=== PATIENT | male | born 1960 | race Caucasian/White ===

== ENCOUNTER 2019-07-08 19:07 | Outpatient (REF) | payer OTHER, SELFPAY ==
[2019-07-08 19:30] LABS: ALT 41 U/L (16-63); AST 26 U/L (15-37); Albumin 4.1 g/dL (3.4-5.0); Alkaline Phosphatase 87 U/L (46-116); Anion Gap 11.1 mmol/L (3-11); BUN 13 mg/dL (7-18); Bilirubin, Total 0.7 mg/dL (0.2-1.0); CO2 22.9 mmol/L (21.0-32.0); Calcium 8.8 mg/dL (8.5-10.1); Calculated LDL 119 mg/dL; Chloride 108 mmol/L (98-107); Cholesterol 193 mg/dL (<200); Glucose 85 mg/dL (74-106); HDL Cholesterol 38 mg/dL (40-60); Potassium 3.7 mmol/L (3.5-5.1); Sodium 142 mmol/L (136-145); Total Protein 7.6 g/dL (6.4-8.2); Triglyceride 180 mg/dL (<150)
== END 2019-07-08 19:27 ==
LOC: NCHCN 19:07
PROVIDERS: PCP Physician Assistant Medical; Visit Provider Physician Assistant Medical
DX: Z00.00 Encounter for general adult medical examination without abnormal findings (principal); Z13.220 Encounter for screening for lipoid disorders; Z13.228 Encounter for screening for other metabolic disorders
CPT/HCPCS: 80053; 80061

== ENCOUNTER 2020-08-29 19:32 | Outpatient (REF) | payer OTHER, SELFPAY ==
[2020-08-29 20:54] LABS: ALT 44 U/L (16-63); AST 29 U/L (15-37); Alkaline Phosphatase 80 U/L (46-116); Anion Gap 9.6 mmol/L (3-11); BUN 18 mg/dL (7-18); Bilirubin, Total 0.4 mg/dL (0.2-1.0); CO2 26.4 mmol/L (21.0-32.0); CREATININE 1.15 mg/dL (0.70-1.30); Calcium 9.2 mg/dL (8.5-10.1); Calculated LDL 129 mg/dL (<100); Chloride 105 mmol/L (98-107); Cholesterol 205 mg/dL (<200); Glucose 88 mg/dL (74-106); HDL Cholesterol 41 mg/dL (40-60); Potassium 4.4 mmol/L (3.5-5.1); Sodium 141 mmol/L (136-145); Total Protein 7.7 g/dL (6.4-8.2); Triglyceride 177 mg/dL (<150)
== END 2020-08-29 19:52 ==
LOC: NCHCN 19:32
PROVIDERS: PCP Physician Assistant Medical; Visit Provider Physician Assistant Medical
DX: Z00.00 Encounter for general adult medical examination without abnormal findings (principal); Z13.220 Encounter for screening for lipoid disorders; Z13.228 Encounter for screening for other metabolic disorders
CPT/HCPCS: 80053; 80061

== ENCOUNTER 2021-04-29 17:56 | Observation (INO) | payer OTHER, SELFPAY ==
[2021-04-29] VITALS (27 sets, daily range): BP systolic 126–145; BP diastolic 68–87; PULSE 92–106; RESP 16–33; TEMP 36.8–37.9; O2SAT 92–97
--- NOTE | 2021-04-29 18:00 | RT.EKG_ITS ---
APPROVED REPORT Exam: Resting ECG Reason for Exam: sob Patient Location: E HR:101 bpm ECG Measurements Heart Rate 101 AXIS AZ 137 P 69 QRSd 92 QRS 29 QT 338 T 10 QTc 438 Conclusion Sinus tachycardia...rate> 99
--- NOTE | 2021-04-29 18:19 | ED.GENADUL_ITS ---
Discharge Plan Disposition Patient Disposition: [facility] INPATIENT Condition: Improving Discharge Details Chief Complaint: GenMedical Clinical Impression: Anemia, Leukocytosis Primary Care Provider: Beatriz Maurice ED Provider: Mikael Scott Home Meds and New Rx's Prescriptions: No Action flecainide 50 MG tablet 50 mg PO BID RF: 0 bisoprolol fumarate 5 MG tablet 2.5 mg PO DAILY Qty: 30 RF: 0 aspirin [Aspir-81] 81 mg Tablet,Delayed Release (Dr/Ec) 81 mg PO DAILY RF: 0 tamsulosin 0.4 mg capsule 0.4 mg PO HS RF: 0 pantoprazole 40 mg tablet,delayed release (DR/EC) 40 mg PO DAILY RF: 0 Medical Decision Making 60-year-old male referred by primary care, [facility]. He has had generalized weakness for 2 to 3 weeks with some mild exertional shortness of breath. He had outpatient blood work today that revealed elevated white blood cell count of 48. He also had an outpatient chest x-ray that was unremarkable. The patient's CBC reveals a differential including elevated absolute monocytes and absolute lymphocytes. He has a relative anemia versus his baseline. I reviewed the patient's presentation with on-call hematology at [facility], Dr Rodrigez. Laboratory had reported to me verbally they were concerned for blasts in the patient's blood smear and for which a pathology consult is pending. [facility] recommended admission for every 6 hours CBCs, close observation, and review of pathology consult in the morning. If the patient has increased dyspnea, precipitous changes to his CBC, or blasts present that would indicate a blast crisis, the hematology service asked to be contacted. He will likely have an outpatient referral for bone marrow biopsy. At the request I have added LDH, haptoglobin, reticulocyte count and lactic acid. Case discussed with Dr. Betancourt. [facility] General Mode of arrival: ambulatory . Date/Time Provider Initiated Documentation: 04/29/21 18:01 . Limitations to Documentation: no limitations . Information obtained by: patient . History of Present Illness 60 year old M presents to the emergency department with the chief complaint of Generalized weakness, elevated leukocytes on blood count today, described as moderate, Quality is described as constant, Patient reports no radiation. and it has been constant. No relieving factors improve symptom(s), Movement worsens symptoms . Patient notes weakness; denies chest pain and syncope. Patient did receive the following treatments prior to arrival, none Related Data Home Medications Medication Instructions Recorded Confirmed bisoprolol fumarate 2.5 mg PO DAILY #30 tab 10/24/16 04/29/21 flecainide 50 mg PO BID tab-cap 12/24/16 04/29/21 aspirin [Aspir-81] 81 mg PO DAILY 04/29/21 04/29/21 pantoprazole 40 mg PO DAILY 04/29/21 04/29/21 tamsulosin 0.4 mg PO HS 04/29/21 04/29/21 Previous Rx's Medication Instructions Recorded bisoprolol fumarate 2.5 mg PO DAILY #30 tab 10/24/16 Allergies Allergy/AdvReac Type Severity Reaction Status Date / Time metoprolol AdvReac skips in Unverified 04/29/21 18:23 heart rate all sugar substitutes AdvReac Uncoded 04/29/21 18:22 Review of Systems Narrative: Weakness with exertion, no palpitations or syncope. Denies significant chest pain. Has been short of breath with exertion. No recent illness. No weight loss or night sweats. No bleeding or bruising. 8 systems reviewed and otherwise negative. [facility] Medical History GERD (gastroesophageal reflux disease) History of colon polyps Paroxysmal atrial fibrillation Surgical History (Updated 06/02/18 @ 14:33 by [employer]) Colonoscopy - IV Sedation Repair, Tendon or Muscle achilles Tonsillectomy and adenoidectomy Social History Smoking/Tobacco Use Status: Never Smoking risk assessment performed?: Yes Alcohol Intake: current Alcohol Intake frequency: holidays/special occasions only Drug use: Never Do you feel safe at home: Yes Do you feel safe in your relationship?: Yes Exam Narrative Exam Narrative: GEN: awake, alert, oriented 3. Pleasant, well groomed, interactive. HEAD: Normocephalic, atraumatic ENT: Mucous membranes moist, oropharynx unremarkable, External ear exam unremarkable EYES: PERRL, EOMI NECK: Full ROM, no ELVIE, no menigismus CHEST/RESP: Nontender, clear to auscultation bilateral, no wheeze/rhonchi/rales CARDIOVASCULAR: Regular and borderline tachycardia, no murmur, rub sanya. 2+ Rad pulse bilateral ABDOMEN: Soft, nontender, no mass. +Bowel sounds EXT: Full ROM, no edema, no rash Neuro: Grossly normal neurologic exam, conversant, interactive. Psych: Speech fluent, thoughts congruent, affect normal
[2021-04-29] MEDS: Normal Saline 1,000 ML 1000 ML IV (19:09)
[2021-04-29 19:17] LABS: Absolute Lymphocyte Count 10.54 10^3/uL (1.2-3.4); Basophils % 0.1; Eosinophils % 0.1; HCT 24.9 % (40.0-50.0); HGB 8.3 g/dL (13.5-17.5); Immature Grans % 3.2; Lymphocytes % 22.4; MCH 31.8 pg (27.0-33.0); MCHC 33.3 % (32.0-36.0); MCV 95.4 fL (80-95); MPV 12.6 fL (8.0-11.0); Nucleated RBC 0 %; RBC 2.61 10^6/uL (4.36-5.78); RDW 15.1 % (11.8-14.1); RDW-SD 52.5 fL
[2021-04-29 19:27] LABS: Absolute Basophil Count 0.05 10^3/uL (0.0-0.2); Absolute Eosinophil Count 0.05 10^3/uL (0.0-0.7); Absolute Monocyte Count 32.94 10^3/uL (0.1-0.8); Absolute Neutrophil Count 1.98 10^3/uL (1.2-6.7); WBC 47.05 10^3/uL (4.4-10.8)
[2021-04-29 19:28] LABS: Platelet Count 23 10^3/uL (130-400)
[2021-04-29 19:29] LABS: Neutrophils % 4.2
[2021-04-29 19:35] LABS: ALT 20 U/L (16-63); AST 25 U/L (15-37); Albumin 2.9 g/dL (3.4-5.0); Alkaline Phosphatase 61 U/L (46-116); Anion Gap 10.2 mmol/L (3-11); BUN 14 mg/dL (7-18); Bilirubin, Total 0.4 mg/dL (0.2-1.0); CO2 25.8 mmol/L (21.0-32.0); CREATININE 1.5 mg/dL (0.70-1.30); Calcium 8.3 mg/dL (8.5-10.1); Chloride 104 mmol/L (98-107); Estimated GFR 47.74 (mL/min/1.73m2); Glucose 118 mg/dL (74-106); Potassium 3.1 mmol/L (3.5-5.1); Sodium 140 mmol/L (136-145); Total Protein 7.8 g/dL (6.4-8.2)
[2021-04-29 19:47] LABS: INR 1.3 (0.9-1.1); Prothrombin Time 12.6 sec (9.3-11.0)
--- NOTE | 2021-04-29 20:17 | W.PM.HP.N ---
Date of service: 04/29/21 Time of Service: 20:17 Assessment and Plan Assessment and plan (1) Leukocytosis: Status: Acute Assessment and plan: Leukocytosis with anemia and thrombocytopenia. 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 Per recommendations of Hematology will monitor CBC overnight, then arrange for biopsy. History of Present Illness History of Present Illness Chief Complaint: SOB Narrative: 60 male here with several weeks of generalized weakness and PICHARDO. Seen PCP, labs show white count 48K, sent to ER for eval. In ER findings of note for white count 47K, predominantly mononclear (verbal from ER is that there may have been blasts but this is unconfirmed and sample has been sent out to Path); Hct 24 and platelets 23. Case reviewed with [facility] [place] [place] hematology who advises q6H Hct in event of developing blast crisis. Otherwise will plan on referral for bone marrow biopsy and definitive treatment. At present patient states he is comfi=ortable at rest, no pain, no SOB. No unusual bleeding. Review of Systems All systems reviewed & are unremarkable except as noted in HPI and below PFSH Medical History GERD (gastroesophageal reflux disease) History of colon polyps Paroxysmal atrial fibrillation Surgical History Colonoscopy - IV Sedation Repair, Tendon or Muscle achilles Tonsillectomy and adenoidectomy Social History Smoking/Tobacco Use Status: Never Smoking risk assessment performed?: Yes Alcohol Intake: current Alcohol Intake frequency: holidays/special occasions only Drug use: Never Do you feel safe at home: Yes Do you feel safe in your relationship?: Yes Meds Allergies and Home Medications Allergies Allergy/AdvReac Type Severity Reaction Status Date / Time metoprolol AdvReac skips in Unverified 04/29/21 18:23 heart rate all sugar substitutes AdvReac Uncoded 04/29/21 18:22 Home Medications Medication Instructions Recorded Confirmed Type bisoprolol fumarate 2.5 mg PO DAILY #30 tab 10/24/16 04/29/21 Rx flecainide 50 mg PO BID tab-cap 12/24/16 04/29/21 History aspirin [Aspir-81] 81 mg PO DAILY 04/29/21 04/29/21 History pantoprazole 40 mg PO DAILY 04/29/21 04/29/21 History tamsulosin 0.4 mg PO HS 04/29/21 04/29/21 History Exam Narrative Exam Narrative: 140/84, 103, 36.8, 19, 95% RA. HEENT atraumatic; neck supple; lungs clear; heart RRR; abdomen soft and NT w/o HSM; extremities w/o edema; neuro Ox3, lucid, moves all 4s. Lymphatic: 2 cm left anterior cervical node, otherwise negative Results Labs Result diagrams: 04/29/21 18:55 04/29/21 18:55 Labs: Laboratory Results - last 24 hr 04/29/21 04/29/21 04/29/21 18:36 18:55 18:55 WBC 47.05 H* RBC 2.61 L Hgb 8.3 L Hct 24.9 L MCV 95.4 H MCH 31.8 MCHC 33.3 RDW 15.1 H Plt Count 23 L* MPV 12.6 H Immature Gran % 3.2 Neutrophils % 4.2 Lymphocytes % 22.4 Monocytes % 70.0 Eosinophils % 0.1 Basophils % 0.1 Nucleated RBC % 0 Absolute Neutrophils 1.98 Absolute Lymphocytes 10.54 H Absolute Monocytes 32.94 H Absolute Eosinophils 0.05 Absolute Basophils 0.05 PT INR APTT Sodium 140 Potassium 3.1 L Chloride 104 Carbon Dioxide 25.8 Anion Gap 10.2 BUN 14 Creatinine 1.5 H Estimated GFR/1.73 m2 47.74 Glucose 118 H Calcium 8.3 L Total Bilirubin 0.4 AST 25 ALT 20 Alkaline Phosphatase 61 Total Protein 7.8 Albumin 2.9 L Pathology Consult Spec Cancelled 04/29/21 18:55 WBC RBC Hgb Hct MCV MCH MCHC RDW Plt Count MPV Immature Gran % Neutrophils % Lymphocytes % Monocytes % Eosinophils % Basophils % Nucleated RBC % Absolute Neutrophils Absolute Lymphocytes Absolute Monocytes Absolute Eosinophils Absolute Basophils PT 12.6 H INR 1.3 H APTT 25.0 Sodium Potassium Chloride Carbon Dioxide Anion Gap BUN Creatinine Estimated GFR/1.73 m2 Glucose Calcium Total Bilirubin AST ALT Alkaline Phosphatase Total Protein Albumin Pathology Consult Spec Last Vital Signs Temp 36.8 C 04/29/21 18:16 Pulse 103 H 04/29/21 18:16 Resp 19 04/29/21 18:16 BP 140/84 04/29/21 18:16 Pulse Ox 95 04/29/21 18:16
[2021-04-29 20:39] LABS: Source Nasal/Nares
[2021-04-29 20:48] LABS: Lactate 0.9 mmol/L (0.6-1.4)
[2021-04-29 20:55] LABS: Reticulocyte 0.4 % (0.5-2.4)
[2021-04-29 21:16] LABS: LDH 655 U/L (85-227)
[2021-04-29] MEDS: Normal Saline Flush 10 ML SYR IVP (22:02)
[2021-04-29] MEDS: Acetaminophen 325 MG TAB 650 MG PO (22:02)
[2021-04-29] MEDS: Tamsulosin 0.4 MG CAPCR PO (22:02)
[2021-04-29 23:01] LABS: COVID-19 PCR Negative (Negative)
[2021-04-29 23:33] LABS: HCT 23.8 % (40.0-50.0); HGB 7.8 g/dL (13.5-17.5); MCH 31.7 pg (27.0-33.0); MCHC 32.8 % (32.0-36.0); MCV 96.7 fL (80-95); MPV 11.5 fL (8.0-11.0); Nucleated RBC 0 %; RBC 2.46 10^6/uL (4.36-5.78); RDW 15.2 % (11.8-14.1); RDW-SD 53.3 fL
[2021-04-29 23:37] LABS: WBC 46.01 10^3/uL (4.4-10.8)
[2021-04-29 23:56] LABS: Platelet Count 21 10^3/uL (130-400)
[2021-04-30] VITALS: BP 107/66; PULSE 92; RESP 20; TEMP 36.2; O2SAT 94
[2021-04-30] LABS: Absolute Eosinophil Count 0.46 10^3/uL (0.0-0.7); Absolute Lymphocyte Count 9.66 10^3/uL (1.2-3.4); Absolute Monocyte Count 31.29 10^3/uL (0.1-0.8)
[2021-04-30 00:01] LABS: Diff Comment Manual Differential; Hypochromasia 1+; Metamyelocytes % 3; Myelocytes % 2
[2021-04-30 06:07] VITALS: TEMP 36.4
[2021-04-30 07:15] LABS: Abs Immature Grans 1.17 10^3/uL (0.0-0.06); HCT 24.4 % (40.0-50.0); HGB 8.1 g/dL (13.5-17.5); MCHC 33.2 % (32.0-36.0); MCV 96.4 fL (80-95); Nucleated RBC 0 %; RBC 2.53 10^6/uL (4.36-5.78); RDW 15.2 % (11.8-14.1); RDW-SD 52.6 fL
[2021-04-30 07:30] VITALS: BP 122/80; PULSE 89; RESP 16; TEMP 36.6; O2SAT 95
[2021-04-30] MEDS: Pantoprazole 40 MG TABCR PO (08:15)
[2021-04-30] MEDS: Bisoprolol 5 MG TAB 2.5 MG PO (08:15)
[2021-04-30 08:21] LABS: WBC 40.17 10^3/uL (4.4-10.8)
[2021-04-30 08:22] LABS: Platelet Count 20 10^3/uL (130-400)
[2021-04-30 08:23] LABS: Absolute Lymphocyte Count 12.85 10^3/uL (1.2-3.4); Absolute Monocyte Count 13.66 10^3/uL (0.1-0.8); Absolute Neutrophil Count 3.21 10^3/uL (1.2-6.7); Bands % 0
[2021-04-30 08:24] LABS: Diff Comment Manual Differential; Other Cells % 26; RBC Morphology Normal
--- NOTE | 2021-04-30 12:14 | DSE_ITS ---
Date of service: 04/30/21 Time of Service: 12:14 DS: Diagnosis Discharge Diagnosis (1) Leukocytosis: Status: Acute Discharge Plan Disposition Patient Disposition: HOME Condition: Improving Discharge Details Reason For Visit: Presumed Leukemia Admit Date/Time: 04/29/21 20:27 Admit Provider: Graham Betancourt Attending Provider: Graham Betancourt Primary Care Provider: Beatriz Maurice Hospital Course Hospital Course: This is a 60 male who presented to the ED with several weeks of generalized weakness and dyspnea on exertion. He was evaluated by his PCP and labs show white count 48K, sent to ER for evaluation. In ER findings of note for white count 47K, predominantly mononclear (verbal from ER is that there may have been blasts but this is unconfirmed and sample has been sent out to Path); Hct 24 and platelets 23. Case reviewed with [facility] [place] who advises q6H Hct in event of developing blast crisis. Otherwise will plan on referral for bone marrow biopsy and definitive treatment. a Flow cytometry has been sent and is pending. His H&H remained stable, white count down to 40 and platelets stable at 20 with no evidence of bleeding or bruising. He has been hemodynamically stable with no new c/o. He will be discharged home to f/u with [facility] [place] further [place] and management. discharge discussed with DR Parra. Home Meds and New Rx's Prescriptions: Continued flecainide 50 MG tablet 50 mg PO BID RF: 0 bisoprolol fumarate 5 MG tablet 2.5 mg PO DAILY Qty: 30 RF: 0 tamsulosin 0.4 mg capsule 0.4 mg PO HS RF: 0 pantoprazole 40 mg tablet,delayed release (DR/EC) 40 mg PO DAILY RF: 0 Discontinued aspirin [Aspir-81] 81 mg Tablet,Delayed Release (Dr/Ec) 81 mg PO DAILY RF: 0 Discharge Instructions Instructions: Leukocytosis (DC), Thrombocytopenia (DC) Additional Instructions: you will need further outpatient work up and are being referred to [facility] [place]ology. you are at increased risk for bleeding so report symptoms of lightheadedness, nicholas bleeding, or concerns immediately. avoid activities that put you at risk for trauma. Stand Alone Forms: Nursing Discharge Form Referrals: Beatriz Maurice PA [Primary Care Provider] - 05/14/21 9:15 am ASHWINI MARTEL [ NON-[facility] STAFF PHYSICIAN] - (office will call you with appointment time and date) Activity:: Activity as Tolerated Equipment/Supplies:: No Equipment Needed Diet:: As Tolerated Discharge Orders Discharge Orders: Discharge Order (Routine); Ordered 04/30/21 Ordered By: Emilia Winters Discharge Data Discharge Date/Time-TO BE ENTERED AT DEPARTURE: 04/30/21 13:45 DS: Summary Time Spent with Patient providing and/or coordinating discharge services: Less than 30 minutes Status at Discharge Functional status at discharge: independent ambulation Overall status at discharge: patient is not back to baseline Mental Status: mental status grossly normal Speech and Movement: speech and movement normal Mood: congruent mood Affect: normal affect Exam Narrative Exam Narrative: GEN: awake, alert, oriented 3. not acute distress HEAD: Normocephalic, atraumatic ENT: Mucous membranes moist, oropharynx unremarkable, EYES: PERRL, EOMI NECK: Full ROM, no menigismus CHEST/RESP: respirations even and unlabored, clear to auscultation bilateral, CARDIOVASCULAR: Regular rate and rhythm, no murmur, no edema ABDOMEN: Soft. +Bowel sounds EXT: Full ROM, no edema, no rash, no bruising Neuro: awake and oriented, no focal deficit. Psych: normal mood and affectl Psych Mental Status: mental status grossly normal Speech and Movement: speech and movement normal Mood: congruent mood Affect: normal affect DS: Data Vitals/I&O Vitals and I&O: Vital Signs Temperature 36.6 C 04/30/21 07:30 Temperature Source Tympanic 04/30/21 07:30 Pulse 89 04/30/21 07:30 Pulse Rhythm Regular 04/30/21 08:16 Pulse 92 H 04/29/21 20:50 Respiratory Rate 16 04/30/21 07:30 Respiratory Effort 04/30/21 08:16 Respiratory Depth Normal 04/30/21 08:16 Respiratory Pattern Normal 04/30/21 08:16 Blood Pressure 122/80 04/30/21 07:30 Blood Pressure Mean 96 04/29/21 20:46 Blood Pressure Position Supine 04/29/21 18:16 Pulse Oximetry 95 04/30/21 07:30 Oxygen Delivery Method Room Air 04/30/21 07:30 Oxygen Flow Rate 0 04/30/21 07:30 Pain Level 0 04/30/21 07:30 Intake & Output 04/29/21 04/30/21 04/30/21 23:59 11:59 23:59 Intake Total 1010 / 1010 600 / 600 Balance 1010 / 1010 600 / 600 Weight 117.934 kg Intake: IV 1010 / 1010 Oral 600 / 600 Other: Comment voiding in toielt independently Voiding Methods Toilet Data Completed and Pending Labs on day of discharge: Labs from last 24 hours 04/30/21 04/29/21 04/29/21 07:00 23:30 23:00 WBC 40.17 H* Cancelled 46.01 H* RBC 2.53 L Cancelled 2.46 L Hgb 8.1 L Cancelled 7.8 L Hct 24.4 L Cancelled 23.8 L MCV 96.4 H Cancelled 96.7 H MCH 32.0 Cancelled 31.7 MCHC 33.2 Cancelled 32.8 RDW 15.2 H Cancelled 15.2 H Plt Count 20 L* Cancelled 21 L* MPV 12.0 H Cancelled 11.5 H Reticulocyte % (Auto) Immature Gran % 0.0 Cancelled See Differential Neutrophils % 8.0 Cancelled 5.0 Band Neutrophils % 0 Cancelled Lymphocytes % 32.0 Cancelled 21.0 Atypical Lymphs % Cancelled Monocytes % 34.0 Cancelled 68.0 Eosinophils % 0.0 Cancelled 1.0 Basophils % 0.0 Cancelled 0.0 Metamyelocytes % Cancelled 3 Myelocytes % Cancelled 2 Promyelocytes % Cancelled Other Cells % 26 Cancelled Nucleated RBC % 0 Cancelled 0 Absolute Neutrophils 3.21 Cancelled 2.30 Absolute Lymphocytes 12.85 H Cancelled 9.66 H Absolute Monocytes 13.66 H Cancelled 31.29 H Absolute Eosinophils 0.00 Cancelled 0.46 Absolute Basophils 0.00 Cancelled 0.00 RBC Morphology Normal Cancelled See Below Polychromasia Cancelled Hypochromasia Cancelled 1+ Poikilocytosis Cancelled Basophilic Stippling Cancelled Anisocytosis Cancelled Microcytosis Cancelled Macrocytosis Cancelled Spherocytes Cancelled Tear Drop Cells Cancelled Ovalocytes Cancelled Stomatocytes Cancelled Hernandez-Hutto Bodies Cancelled Conklin Cells/Echinocytes Cancelled Acanthocytes (Spur) Cancelled Schistocytes Cancelled Haptoglobin PT INR APTT VBG Lactate Sodium Potassium Chloride Carbon Dioxide Anion Gap BUN Creatinine Estimated GFR/1.73 m2 Glucose Calcium Total Bilirubin AST ALT Alkaline Phosphatase Lactate Dehydrogenase Total Protein Albumin COVID-19 Source SARS-CoV-2 (PCR) Pathology Consult Spec 04/29/21 04/29/21 04/29/21 20:40 20:40 20:32 WBC RBC Hgb Hct MCV MCH MCHC RDW Plt Count MPV Reticulocyte % (Auto) Immature Gran % Neutrophils % Band Neutrophils % Lymphocytes % Atypical Lymphs % Monocytes % Eosinophils % Basophils % Metamyelocytes % Myelocytes % Promyelocytes % Other Cells % Nucleated RBC % Absolute Neutrophils Absolute Lymphocytes Absolute Monocytes Absolute Eosinophils Absolute Basophils RBC Morphology Polychromasia Hypochromasia Poikilocytosis Basophilic Stippling Anisocytosis Microcytosis Macrocytosis Spherocytes Tear Drop Cells Ovalocytes Stomatocytes Hernandez-Hutto Bodies Reed Cells/Echinocytes Acanthocytes (Spur) Schistocytes Haptoglobin PT INR APTT VBG Lactate 0.9 Sodium Potassium Chloride Carbon Dioxide Anion Gap BUN Creatinine Estimated GFR/1.73 m2 Glucose Calcium Total Bilirubin AST ALT Alkaline Phosphatase Lactate Dehydrogenase 655 H Total Protein Albumin COVID-19 Source Nasal/Nares SARS-CoV-2 (PCR) Negative Pathology Consult Spec 04/29/21 04/29/21 04/29/21 18:55 18:55 18:55 WBC RBC Hgb Hct MCV MCH MCHC RDW Plt Count MPV Reticulocyte % (Auto) 0.4 L Immature Gran % Neutrophils % Band Neutrophils % Lymphocytes % Atypical Lymphs % Monocytes % Eosinophils % Basophils % Metamyelocytes % Myelocytes % Promyelocytes % Other Cells % Nucleated RBC % Absolute Neutrophils Absolute Lymphocytes Absolute Monocytes Absolute Eosinophils Absolute Basophils RBC Morphology Polychromasia Hypochromasia Poikilocytosis Basophilic Stippling Anisocytosis Microcytosis Macrocytosis Spherocytes Tear Drop Cells Ovalocytes Stomatocytes Hernandez-Hutto Bodies Conklin Cells/Echinocytes Acanthocytes (Spur) Schistocytes Haptoglobin Pending PT 12.6 H INR 1.3 H APTT 25.0 VBG Lactate Sodium Potassium Chloride Carbon Dioxide Anion Gap BUN Creatinine Estimated GFR/1.73 m2 Glucose Calcium Total Bilirubin AST ALT Alkaline Phosphatase Lactate Dehydrogenase Total Protein Albumin COVID-19 Source SARS-CoV-2 (PCR) Pathology Consult Spec 04/29/21 04/29/21 04/29/21 18:55 18:55 18:36 WBC 47.05 H* RBC 2.61 L Hgb 8.3 L Hct 24.9 L MCV 95.4 H MCH 31.8 MCHC 33.3 RDW 15.1 H Plt Count 23 L* MPV 12.6 H Reticulocyte % (Auto) Immature Gran % 3.2 Neutrophils % 4.2 Band Neutrophils % Lymphocytes % 22.4 Atypical Lymphs % Monocytes % 70.0 Eosinophils % 0.1 Basophils % 0.1 Metamyelocytes % Myelocytes % Promyelocytes % Other Cells % Nucleated RBC % 0 Absolute Neutrophils 1.98 Absolute Lymphocytes 10.54 H Absolute Monocytes 32.94 H Absolute Eosinophils 0.05 Absolute Basophils 0.05 RBC Morphology Polychromasia Hypochromasia Poikilocytosis Basophilic Stippling Anisocytosis Microcytosis Macrocytosis Spherocytes Tear Drop Cells Ovalocytes Stomatocytes Hernandez-Hutto Bodies Conklin Cells/Echinocytes Acanthocytes (Spur) Schistocytes Haptoglobin PT INR APTT VBG Lactate Sodium 140 Potassium 3.1 L Chloride 104 Carbon Dioxide 25.8 Anion Gap 10.2 BUN 14 Creatinine 1.5 H Estimated GFR/1.73 m2 47.74 Glucose 118 H Calcium 8.3 L Total Bilirubin 0.4 AST 25 ALT 20 Alkaline Phosphatase 61 Lactate Dehydrogenase Total Protein 7.8 Albumin 2.9 L COVID-19 Source SARS-CoV-2 (PCR) Pathology Consult Spec Cancelled [facility] Medical History GERD (gastroesophageal reflux disease) History of colon polyps Paroxysmal atrial fibrillation Surgical History Colonoscopy - IV Sedation Repair, Tendon or Muscle achilles Tonsillectomy and adenoidectomy Social History Smoking/Tobacco Use Status: Never Smoking risk assessment performed?: Yes Alcohol Intake: current Alcohol Intake frequency: holidays/special occasions only Drug use: Never Do you feel safe at home: Yes Do you feel safe in your relationship?: Yes
--- NOTE | 2021-04-30 15:40 | CMPROGNOTE_ITS ---
- If Service Date Differs Date of service: 04/30/21 Time of Service: 15:40 Care Management Progress Note S/O: Herber is a 60 year old man admitted to [facility] on 04/29/21 after being sent to the ED by his PCP. Routine blood work had revealed leukocytosis (WBC 47,000) and thrombocytopenia (platelets 23). 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 CM unable to meet with Herber as he was discharged before the visit occurred. P: Herber will be discharged home to [place] [facility] [place] and will likely need an outpatient bone marrow biopsy
[2021-05-01 09:25] LABS: Haptoglobin 150 mg/dL (32-197)
[2021-05-03 15:03] LABS: Leukemia/Lymphoma by FC (Blood SEE COMMENTS
== END 2021-04-30 13:45 | disposition home or self-care (01) ==
LOC: ER 20:47 → MS 21:19
PROVIDERS: Nurse Practitioner Acute Care; Admitting Provider General Practice; Emergency Provider Emergency Medicine; PCP Physician Assistant Medical; Visit Provider General Practice
DX: D64.9 Anemia, unspecified (principal); D69.6 Thrombocytopenia, unspecified; R06.02 Shortness of breath; D72.829 Elevated white blood cell count, unspecified; K21.9 Gastro-esophageal reflux disease without esophagitis; I48.0 Paroxysmal atrial fibrillation; Z86.010 Personal history of colon polyps; Z79.899 Other long term (current) drug therapy
CPT/HCPCS: 36415; 80053; 87635; 88185; 93005; 96360; 96361; 99285; 83010; 83605; 83615; 85025; 85045; 85610; 85730; 88184; 88189; 93010; 99217; 99219; 99222; G0378

== ENCOUNTER 2021-04-29 18:09 | Outpatient (REF) | payer OTHER, SELFPAY ==
[2021-05-01 13:33] LABS: COVID-19 RT-PCR UVMMC Result Negative (Negative)
== END 2021-04-29 18:10 | disposition home or self-care (01) ==
LOC: NCHCN 18:09
PROVIDERS: PCP Physician Assistant Medical; Visit Provider Physician Assistant Medical
DX: Z20.822 Contact with and (suspected) exposure to COVID-19 (principal); R06.00 Dyspnea, unspecified; R53.83 Other fatigue
CPT/HCPCS: U0003

== ENCOUNTER 2021-04-29 23:17 | Outpatient (CLI) | payer OTHER, SELFPAY ==
[2021-04-29 16:38] LABS: Abs Immature Grans 1.69 10^3/uL (0.0-0.06); HCT 26.5 % (40.0-50.0); HGB 8.8 g/dL (13.5-17.5); MCH 32.1 pg (27.0-33.0); MCHC 33.2 % (32.0-36.0); MCV 96.7 fL (80-95); MPV 12.3 fL (8.0-11.0); Nucleated RBC 0 %; RBC 2.74 10^6/uL (4.36-5.78); RDW 15.1 % (11.8-14.1); RDW-SD 52.2 fL
[2021-04-29 17:14] LABS: WBC 48.31 10^3/uL (4.4-10.8)
[2021-04-29 17:16] LABS: Platelet Count 24 10^3/uL (130-400)
[2021-04-29 17:21] LABS: Absolute Lymphocyte Count 13.04 10^3/uL (1.2-3.4); Absolute Monocyte Count 32.37 10^3/uL (0.1-0.8)
[2021-04-29 17:24] LABS: Diff Comment Manual Differential
[2021-04-29 17:25] LABS: Polychromasia Present
[2021-04-29 18:27] LABS: ALT 23 U/L (16-63); AST 27 U/L (15-37); Albumin 3.2 g/dL (3.4-5.0); Alkaline Phosphatase 66 U/L (46-116); Anion Gap 9.6 mmol/L (3-11); BUN 15 mg/dL (7-18); Bilirubin, Total 0.4 mg/dL (0.2-1.0); CO2 26.4 mmol/L (21.0-32.0); CREATININE 1.6 mg/dL (0.70-1.30); Calcium 8.5 mg/dL (8.5-10.1); Chloride 105 mmol/L (98-107); Estimated GFR 44.31 (mL/min/1.73m2); Glucose 95 mg/dL (74-106); Sodium 141 mmol/L (136-145); TSH (W/Ref FT4) 1.97 uIU/mL (0.36-3.74)
[2021-04-30 17:16] LABS: PSA, Screening 2.1 ng/mL (0.0-4.5)
== END 2021-04-29 23:18 | disposition home or self-care (01) ==
LOC: LBO 23:18
PROVIDERS: PCP Physician Assistant Medical; Visit Provider Physician Assistant Medical
DX: R53.83 Other fatigue (principal); R35.1 Nocturia; Z12.5 Encounter for screening for malignant neoplasm of prostate; R06.00 Dyspnea, unspecified
CPT/HCPCS: 36415; 80053; 84153; 84443; 85025

== ENCOUNTER 2021-04-29 23:37 | Outpatient (CLI) | payer OTHER, SELFPAY ==
--- NOTE | 2021-04-29 | DI.RAD_ITS ---
Exam(s) XR CHEST 2V PA LATERAL EXAM: XR CHEST 2V PA LATERAL CLINICAL HISTORY: DYSPNEA, R06.00 TECHNIQUE: 2D digital imaging was performed. COMPARISON: No exams were available for comparison FINDINGS: MEDIASTINUM: Normal. HEART: Normal. PULMONARY VASCULATURE: Normal. LUNGS: Minimal atelectasis or scarring at the right costophrenic angle. Otherwise clear. PLEURAL SPACE: No pleural effusion or pneumothorax. BONE:Unremarkable for age. IMPRESSION: No acute abnormality. DATA REPOSITORY: RADIATION DOSE DELIVERED:
== END 2021-04-29 23:57 ==
PROVIDERS: PCP Physician Assistant Medical; Visit Provider Physician Assistant Medical
DX: R06.00 Dyspnea, unspecified (principal)
CPT/HCPCS: 71046

== ENCOUNTER 2021-06-27 15:27 | Outpatient (REF) | payer OTHER, SELFPAY ==
[2021-06-27 18:10] LABS: Bilirubin Negative (Negative); Blood Negative (Negative); Clarity Clear (Clear); Glucose Negative (Negative); Ketones Negative (Negative); Leukocyte Esterase Negative (Negative); Nitrite Negative (Negative); Specific Gravity 1.025 (1.005-1.025); Urobilinogen 0.2 EU/dL (Up TO 0.2); pH 5.5 (5-8)
== END 2021-06-27 15:28 | disposition home or self-care (01) ==
LOC: LBN 15:27
PROVIDERS: PCP Physician Assistant Medical; Visit Provider Physician Assistant Medical
DX: R30.0 Dysuria (principal)
CPT/HCPCS: 81003

== ENCOUNTER 2021-07-07 18:24 | Inpatient (IN) | payer OTHER, SELFPAY ==
[2021-07-07] VITALS (26 sets, daily range): BP systolic 123–184; BP diastolic 65–94; PULSE 94–117; RESP 16–29; TEMP 36.4–36.9; O2SAT 96–100
--- NOTE | 2021-07-07 | DI.MRI_ITS ---
Exam(s) MR BRAIN WO/W EXAM: MR BRAIN WO/W CLINICAL HISTORY: diplopia, recent dx leukemia. TECHNIQUE: Multiplanar multisequence MRI of the brain was performed. CONTRAST MATERIAL: IV Contrast: 20 ML of Dotarem contrast administered. COMPARISON: CT CT BRAIN NECK CTA from 07/07/[address] BRAIN NECK CTA from 07/07/2021 FINDINGS: VENTRICLES AND EXTRA AXIAL SPACES: Normal in size and morphology for the patient's age. HEMORRHAGE: None. CEREBRAL PARENCHYMA: No focus of restricted diffusion to suggest acute infarct. No space-occupying le sharon identified. MIDLINE SHIFT: None. BRAINSTEM/CEREBELLUM: Normal. CALVARIUM: Normal. ENHANCEMENT: No suspicious enhancement identified. VISUALIZED PARANASAL SINUSES/MASTOIDS: Clear. Orbits and pituitary unremarkable. IMPRESSION: Unremarkable MRI of the brain. DATA REPOSITORY:
--- NOTE | 2021-07-07 18:15 | RT.EKG_ITS ---
APPROVED REPORT Exam: Resting ECG Reason for Exam: Blurry vision, Hx of A-Fib Patient Location: E HR:103 bpm ECG Measurements Heart Rate 103 AXIS VA 123 P 63 QRSd 90 QRS 26 QT 333 T 13 QTc 440 Conclusion Sinus tachycardia...rate> 99 Ventricular premature complex...V complex w/ short R-R interval. Sinus. No STEMI. I have reviewed and interpreted ECG and agree with software generated interpretation.
--- NOTE | 2021-07-07 18:44 | ED.GENADUL_ITS ---
Discharge Plan Disposition Patient Disposition: [facility] INPATIENT Condition: Stable Discharge Details Clinical Impression: Hypomagnesemia, Binocular vision disorder with diplopia, Back pain Primary Care Provider: Beatriz Maurice ED Provider: Nga Jaramillo Home Meds and New Rx's Prescriptions: No Action flecainide 50 MG tablet 50 mg PO BID RF: 0 bisoprolol fumarate 5 MG tablet 2.5 mg PO DAILY Qty: 30 RF: 0 tamsulosin 0.4 mg capsule 0.4 mg PO DAILY AM RF: 0 famotidine 20 mg tablet 20 mg PO BID RF: 0 lorazepam 1 mg tablet PRN PRNRF: 0 metoprolol tartrate 25 mg tablet 12.5 mg PO BID RF: 0 Medical Decision Making 60-year-old male presents to the ER with chief complaint of vertical diplopia which he noticed began yesterday which worsened today. He reports that the diplopia resolved with lying on his left side only. He also reports that it is worse when looking in the distance. He denies any headache, dizziness, lightheadedness no tinnitus. He also reports tingling and achiness in his feet and lower extremities which has been ongoing prior to the onset of the double vision. He denies any fever chills nausea vomiting diarrhea no weakness no foc al neuro deficits noted or any other associated symptoms. Patient has a past medical history of recent leukemia diagnosis in April of this year, he did recently also had a bone marrow biopsy at [facility] on . He has a right upper quadrant colostomy from infection which was also recently placed in the last couple of months. He is due for his last chemotherapy treatment in 2 weeks. Other past medical history includes atrial fibrillation, GERD, colon polyp. He did take an OxyContin at 2 PM prior to arrival. He also reports that he did just restart his tamsulosin. Work-up ordered including CBC, CMP, serial troponins, EKG, urinalysis will order CTA brain and neck to rule out CVA or aneurysm. EKG was reviewed by Codi Bauer DO ER attending, old EKG available for review please see her official report. Shows sinus tachycardia. Patient is complaining of worsening bilateral lower extremity tingling and pain requesting another OxyContin. 10 mg OxyContin CR ordered p.o. at this time. 1914: Initial CBC shows a white blood cell count of 23.11, RBCs 2.73, hemoglobin 9.0, hematocrit 27.1, platelets 121 absolute neutrophils 11.56, absolute lymphoc ytes 8.32 CMP shows sodium 137, potassium 3.8, chloride 102, BUN 21 creatinine 1.2 GFR is greater than 60. Glucose 111 calcium 9.5, magnesium 1.3 initial troponin within normal limits. 1923: 2 g of magnesium sulfate IV piggyback ordered and normal saline at 150 an hour. 2005: Patient returns from CTA brain and neck with complaints of increased lower back pain with radiation down to his bilateral legs. Patient is appearing to become agitated. Magnesium is infusing at this time. Patient is complaining of lower lumbar pain, puncture wound noted from previous bone marrow biopsy no surrounding erythema or induration noted to the site. No significant tenderness with palpation of the spine. However due to patient's complaint of increasing pain CT T and L-spine without contrast ordered and 5 mg of Valium IV. 2018: Spoke with ad radiologist Dr. Dennison he reports no acute abnormality on the CT a brain and neck. Impression noted below. IMPRESSION: 1. No evidence of large vessel occlusion. No evidence of arterial dissection or aneurysm/pseudoaneurysm. 2. No acute intracranial process is evident. 3. Mild atrophy consistent with age. 4. Mild chronic maxillary sinusitis. 5. These findings initiated a critical results reporting process. An addendum will be issued at the time of clinician notification. IMPRESSION: No evidence of arterial stenosis, occlusion, dissection, or aneurysm/pseudoaneurysm. 2050: Patient reevaluation, he is still complaining of excruciating aching pain to his lower back at the bone marrow biopsy site which radiates down to his legs. He denies any chest pain abdominal pain or flank pain at this time. I did discuss the results of the CTA brain and neck with him and his labs with him he verbalizes understanding. I did discuss that I will be consulting with [facility] and did discuss possible admission with him for possible need of MRI due to new onset of diplopia and pain control. Upon further evaluation it is noted that the diplopia is binocular and only present with both eyes open and resolves when covering one eye. Also resolves upon lying on his left side. 2055: [facility] transfer center contacted regarding patient for Neurology and Heme/Oncology Consult. Request for images pushed. 2107: Spoke with Dr. Zavala with neurology at [facility] regarding patient case and details he does express concern for neurological abnormality he does recommend an MRI with contrast and LP to follow to rule out meningitis and or brainstem involvement. He recommends an LP with opening pressure: CSF fluid, test cytology and flow cytology. He also recommends administering aspirin for possible brainstem CVA. He does not express the need for an emergent MRI tonight. Patient out to [facility] heme-onc transfer center to call back. 2140: Spoke with Dr. Kallie Dumont with [facility] Heme-oncology she recommends MRI with Contrast of Brain and T and L spine, followed by LP with Cytology and Flow Cytology, pain control with Oxycodone 5 mg PO q 4 hours and Dilaudid or Morphine prn moderate to severe pain. She recommends reconvening tomorrow after MRI result to discuss further care. 2150: Hospitalist Paged. Dr. Betancourt here in ED. [facility] CT Thoracic Spine W/O Contrast IMPRESSION: 1. No evidence of acute fracture or traumatic subluxation. Old healed fracture of the C7 spinous process. 2. 11 mm osteoblastic lesion in the T4 midline lamina which is nonspecific. Cannot exclude solitary osteoblastic metastasis. Consider nonemergent assessment with bone scan or PET- CT. 3. Multilevel minor degenerative disc space narrowing and marginal spurring in the mid and lower thoracic spine. Minimal noncompressive posterior annular protrusions detailed above. No dominant compressive disc protrusion or extrusion was identified. Mild right foraminal stenosis T3-T4 and T5- T6, and moderate left foraminal stenosis C6-C7. 4. Bronchial wall thickening suggesting an element of bronchitis or bronchial edema. CT Lumbar Spine W/O Contrast IMPRESSION: 1. No evidence of fracture or traumatic subluxation. 2. Minor degenerative changes detailed above. 2332: Dr. Betancourt at for patient evaluation. Medical Records Medical records reviewed: Yes I reviewed the patient's medical records. Medical records narrative: [facility] records reviewed. Heme-onc office visit note from 07/01/2021 reviewed. Patient is status post partial bowel resection for toxic megacolon and sepsis due to C. difficile infection on 05/26/2021 At that time laboratory values show white blood cell count of 7.3, RBCs 2.77, hemoglobin 9.0 hematocrit 27.4, platelets 144, absolute neutrophils 5.80 HPI General Mode of arrival: wheelchair . Date/Time Provider Initiated Documentation: 07/07/21 18:25 . Limitations to Documentation: no limitations . Information obtained by: patient, RN notes reviewed and old records reviewed . HPI Narrative: 60-year-old male presents to the ER with chief complaint of vertical diplopia which he noticed began yesterday which worsened today. He reports that the diplopia resolved with lying on his left side only. He also reports that it is worse when looking in the distance. He denies any headache, dizziness, lightheadedness no tinnitus. He also reports tingling and achiness in his feet and lower extremities which has been ongoing prior to the onset of the double vision. He denies any fever chills nausea vomiting diarrhea no weakness no focal neuro deficits noted or any other associated symptoms. Patient has a past medical history of recent leukemia diagnosis in April of this year, he did recently also had a bone marrow biopsy at [facility] on . He has a right upper quadrant colostomy from infection which was also recently placed in the last couple of months. He is du e for his last chemotherapy treatment in 2 weeks. Other past medical history includes atrial fibrillation, GERD, colon polyp. He did take an OxyContin at 2 PM prior to arrival. He also reports that he did just restart his tamsulosin. Related Data Home Medications Medication Instructions Recorded Confirmed bisoprolol fumarate 2.5 mg PO DAILY #30 tab 10/24/16 04/29/21 flecainide 50 mg PO BID tab-cap 12/24/16 07/07/21 tamsulosin 0.4 mg PO DAILY AM 04/29/21 07/07/21 famotidine 20 mg PO BID 07/07/21 07/07/21 lorazepam PRN PRN 07/07/21 metoprolol tartrate 12.5 mg PO BID 07/07/21 07/07/21 Previous Rx's Medication Instructions Recorded bisoprolol fumarate 2.5 mg PO DAILY #30 tab 10/24/16 Allergies Allergy/AdvReac Type Severity Reaction Status Date / Time metoprolol AdvReac skips in Unverified 07/07/21 18:41 heart rate all sugar substitutes AdvReac Uncoded 07/07/21 18:41 General Stated Complaint: GenMedical DANE: 2 Review of Systems All systems reviewed & are unremarkable except as noted in HPI and below Constitutional Constitutional: Denies headache(s) Eyes Eyes: Denies loss of vision (Vertical Binocular Diplopia x 24 hours) ENT Ears, Nose, Mouth, and Throat: Denies dizziness and Denies headache(s) Cardiovascular Cardiovascular: Denies syncope Gastrointestinal Gastrointestinal: Denies abdominal pain, Denies constipation, Denies diarrhea, Denies nausea and Denies vomiting Musculoskeletal Musculoskeletal: Denies abnormal gait and Reports tingling Neurologic Neurologic: Reports as per HPI, Denies abnormal speech, Denies abnormal gait, Denies confusion, Denies dizziness, Denies syncope, Denies headache(s), Denies lack of coordination, Denies localized weakness, Denies loss of vision (Vertical Binocular Diplopia x 24 hours), Denies seizure-like activity and Reports tingling Psychiatric Psychiatric: Denies confusion [facility] Active Problem List Hypomagnesemia (Acute) Binocular vision disorder with diplopia (Acute) Back pain (Acute) Atrial fibrillation (Active 12/04/12) History of surgery (Active) Gastroesophageal reflux disease (Active) Hx of colonic polyps (Acute) Anemia (Chronic) Leukocytosis (Acute) Medical History GERD (gastroesophageal reflux disease) History of colon polyps Paroxysmal atrial fibrillation Surgical History Colonoscopy - IV Sedation Repair, Tendon or Muscle achilles Tonsillectomy and adenoidectomy Social History Smoking/Tobacco Use Status: Never Smoking risk assessment performed?: Yes Alcohol Intake: current Alcohol Intake frequency: holidays/special occasions only Drug use: Never Do you feel safe at home: Yes Do you feel safe in your relationship?: Yes Exam Narrative Exam Narrative: Constitutional: Alert and oriented x3. Appears stated age. Normal body habitus. Head: Normocephalic, no trauma. Eyes: Pupils PERRL, 2mm bilaterally and reactive, Red reflex noted, EOM's inta ct. Eyelids symmetrical without lesions, discharge, or swelling. ENT: Bilateral TM's WNL, External ear normal to inspection, no mastoid TTP, swelling, or erythema, Nasal turbinates WNL, no nasal discharge. Normal dentition, Posterior pharynx WNL, no exudate. Chest: RRR, Normal S1, S2, distal pulses intact. Resp: Lungs clear to auscultation bilaterally, no wheezes, rales, or rhonchi. Abdomen: Soft, non-distended, Normoactive bowel sounds all 4 quads. Colostomy pouch noted right upper quadrant stoma is pink no surrounding erythema, green soft liquid output noted. Musculoskeletal: Unable to assess gait, 5/5 strength to all four extremities. Skin: No suspicious rashes or lesions. Capillary refill less than 2 sec. Neurologic: Cranial nerves II-XII intact. No facial droop. No nystagmus noted. 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 Intact dorsal flexion pedal flexion to his bilateral lower extremities. Alert and oriented x 3. Motor: No deficits noted. Sensory: Intact bilaterally all 4 extremities. Reflexes: DTR's intact bilaterally.. Hematologic/Lymphatic: No ecchymosis, no lymphadenopathy. Course Vital Signs Vital signs: Vital Signs Temperature 36.9 C 07/07/21 18:31 Pulse 110 H 07/07/21 18:31 Respiratory Rate 25 H 07/07/21 18:31 Blood Pressure 149/84 H 07/07/21 18:31 Pulse Oximetry 99 07/07/21 18:31 Temperature 36.9 C 07/07/21 18:31 Temperature Source Temporal Artery Scan 07/07/21 18:31 Pulse 110 H 07/07/21 18:31 Respiratory Rate 25 H 07/07/21 18:31 Blood Pressure 149/84 H 07/07/21 18:31 Blood Pressure Position Supine 07/07/21 18:31 Pulse Oximetry 99 07/07/21 18:31 Oxygen Delivery Method Room Air 07/07/21 18:31 Oxygen Flow Rate 0 07/07/21 18:31 Pain Level 5 07/07/21 18:31 Comment 07/07/21 18:31
--- NOTE | 2021-07-07 18:45 | DI.CT_ITS ---
Exam(s) CT BRAIN NECK CTA EXAM: CT BRAIN NECK CTA CLINICAL HISTORY: R/O CVA, Anuerysym, Double vision, Hx Leukemia. TECHNIQUE: Imaging Protocol: Axial CT angiography was performed with multi-slice acquisition and mu lti-planar and/or 3D reconstructions. CONTRAST MATERIAL: Intravenous: Omnipaque 350 Contrast volume:structured data in ml COMPARISON: No exams were available for comparison FINDINGS: CT Head W/O and W contrast: Ventricles and Extra axial spaces: Normal in size and morphology for the patient's age. Hemorrhage: None. Cerebral parenchyma: Normal. Midline shift: None. Brainstem/Cerebellum: Normal. Calvarium: Normal. Visualized Paranasal sinuses/Mastoids: Mild sinus mucosal thickening. Soft Tissues: Unremarkable. Enhancement: Normal. CTA Brain W: Internal Carotid Arteries: Petrous: Normal. Cavernous: Normal. Cerebral: Normal. Middle Cerebral Arteries: Right: No aneurysm, occlusion or significant stenosis. Left: No aneurysm, occlusion or significant stenosis. Anterior Cerebral Arteries: Right: No aneurysm, occlusion or significant stenosis. Left: No aneurysm, occlusion or significant stenosis. Posterior cerebral Arteries: Right: No aneurysm, occlusion or significant stenosis. Persistent origin. Left: No aneurysm, occlusion or significant stenosis. Persistent origin, a normal variant. Vertebral Arteries: Right: No aneurysm, occlusion or significant stenosis. Left: No aneurysm, occlusion or significant stenosis. Basilar Artery: No aneurysm, occlusion or significant stenosis. CTA Neck W: Common Carotid: Right: No aneurysm, occlusion or significant stenosis. Left: No aneurysm, occlusion or significant stenosis. External Carotid: Right: No aneurysm, occlusion or significant stenosis. Left: No aneurysm, occlusion or significant stenosis. Internal Carotid: Right: Minimal plaque. No aneurysm, occlusion or significant stenosis. Left: Mild soft plaque common carotid bulb. No aneurysm, occlusion or significant stenosis. Vertebral Artery: Right: No aneurysm, occlusion or significant stenosis. Left: No aneurysm, occlusion or significant stenosis. Lung Apices: Normal. Bones: Degenerative disc changes, mild. Soft Tissues: Normal. IMPRESSION: 1. Normal CTA examination of the [place] of [place]. 2. Unremarkable CT Head. 3. Mild soft plaque left common carotid bulb. No significant stenosis. No evidence of dissection.. RADIATION DOSE DELIVERED: 2,363.39mGy.cm Total DLP DATA REPOSITORY: All CT scans at this facility are submitted to the National Radiology Data Registry (NRDR) Dose Index Registry (DIR) with the [employer] ([employer]). RADIATION OPTIMIZATION: All CT scans at this facility use at least one of these dose optimization te chniques: automated exposure control; mA and/or kV adjustment per patient size (includes targeted exa ms where dose is matched to clinical indication); or iterative reconstruction.
[2021-07-07 18:47] LABS: Abs Immature Grans 1.13 10^3/uL (0.0-0.06); HCT 27.1 % (40.0-50.0); MCHC 33.2 % (32.0-36.0); MCV 99.3 fL (80-95); MPV 10.1 fL (8.0-11.0); Nucleated RBC 0 %; Platelet Count 121 10^3/uL (130-400); RBC 2.73 10^6/uL (4.36-5.78); RDW 19.6 % (11.8-14.1); RDW-SD 70.8 fL
[2021-07-07 18:59] LABS: ALT 38 U/L (16-63); AST 29 U/L (15-37); Albumin 3.3 g/dL (3.4-5.0); Alkaline Phosphatase 96 U/L (46-116); Anion Gap 10.6 mmol/L (3-11); BUN 21 mg/dL (7-18); Bilirubin, Total 0.2 mg/dL (0.2-1.0); CO2 24.4 mmol/L (21.0-32.0); CREATININE 1.2 mg/dL (0.70-1.30); Calcium 9.5 mg/dL (8.5-10.1); Chloride 102 mmol/L (98-107); Glucose 111 mg/dL (74-106); Magnesium 1.3 mg/dL (1.8-2.4); Potassium 3.8 mmol/L (3.5-5.1); Sodium 137 mmol/L (136-145); Total Protein 8.3 g/dL (6.4-8.2); Troponin I < 0.05 ng/mL (<0.06)
[2021-07-07 19:01] LABS: WBC 23.11 10^3/uL (4.4-10.8)
[2021-07-07] MEDS: oxyCODONE-CR 10 MG TABCR PO (19:08)
[2021-07-07 19:11] LABS: Absolute Eosinophil Count 0.23 10^3/uL (0.0-0.7); Absolute Lymphocyte Count 8.32 10^3/uL (1.2-3.4); Absolute Monocyte Count 0.92 10^3/uL (0.1-0.8); Absolute Neutrophil Count 11.56 10^3/uL (1.2-6.7); Atypical Lymphocytes % 5; Bands % 6
[2021-07-07 19:12] LABS: Diff Comment Manual Differential; Metamyelocytes % 2; Myelocytes % 2; Other Cells % 15; RBC Morphology Normal
[2021-07-07] MEDS: Omnipaque 350 MG/ML 100 ML BTL IJ (19:30)
[2021-07-07] MEDS: Normal Saline - Diluent 50 ML VIAL IV (19:30)
[2021-07-07] MEDS: Normal Saline Flush 10 ML SYR IVP (19:31)
[2021-07-07] MEDS: Normal Saline 1,000 ML 150 ML IV (19:46)
[2021-07-07] MEDS: MAGNESIUM SULFATE 2 GM/50 ML BAG IVPB (19:46)
[2021-07-07 19:53] LABS: Bilirubin Negative (Negative); Blood Negative (Negative); Clarity Clear (Clear); Glucose Negative (Negative); Ketones Negative (Negative); Leukocyte Esterase Negative (Negative); Nitrite Negative (Negative); Specific Gravity 1.015 (1.005-1.025); Urobilinogen 0.2 EU/dL (Up TO 0.2); pH 5.5 (5-8)
--- NOTE | 2021-07-07 20:00 | DI.CT_ITS ---
Exam(s) CT THORACIC LUMBAR SPINE WO EXAM: CT THORACIC LUMBAR SPINE WO CLINICAL HISTORY: Back pain,. TECHNIQUE: Imaging Protocol: Axial computed tomography images with coronal and sagittal reformatted images were created and reviewed COMPARISON: CR XR CHEST 2V PA LATERAL from 04/29/2021 CR XR CHEST 2V PA LATERAL from 04/29/2021 FINDINGS: Thoracic spine: Mild motion artifact at C6 and C7. Mild deformity spinous process C7. No acute fracture. Sclerotic lesion at the junction of the lamina and spinous process of T4 without aggressive features. Degenerative disc changes with endplate osteophytes eccentric toward the right. Facet degenerative c hanges, greater on the right. Mild neural foraminal narrowing on the right at T3-4 and T5-6. Lungs clear. Visualized portion of aorta normal in diameter. Adrenals and kidneys unremarkable wher e visualized. Contrast is noted related to prior CT a head neck. Lumbar spine: Bones: The last intervertebral disc space is designated the L5/S1 level for the numbering purpose of this examination. The vertebral body heights are well maintained. Alignment is satisfactory. No fract ure is seen. No lytic or blastic lesions. T12-L1: Mild endplate osteophytes projecting anteriorly. No disc herniations or bulges are present. L1-2: Mild endplate osteophytes projecting anteriorly. No disc herniations or bulges are present. L2-3: Mild disc bulging. No disc herniations are present. L3-4: Mild disc bulging. Mild loss of disc height. Small endplate osteophytes. No disc herniations are present. L4-5: Minimal disc space narrowing. Mild endplate osteophytes causes mild right knee foraminal steno sis. No disc herniations are present. L5-S1: Mild loss of disc height and anterior endplate osteophytes. Mild facet degenerative changes. No disc herniations are present. Soft Tissues: The visualized SI joints show spurring. There is bony bridging on the right. No eros ions. The paraspinal soft tissues are unremarkable. IMPRESSION: Thoracic spine: Mild right neural foraminal narrowing T3-4 and T5-6. Sclerotic lesion in the midline lamina of T4 of uncertain clinical significance. Comparison with prior examination is recommended i f available. Lumbar spine: Mild degenerative disc changes. No lytic or blastic lesions. RADIATION DOSE DELIVERED: 1,276.8mGy.cm Total DLP DATA REPOSITORY: All CT scans at this facility are submitted to the National Radiology Data Registry (NRDR) Dose Index Registry (DIR) with the [employer] (ACR). RADIATION OPTIMIZATION: All CT scans at this facility use at least one of these dose optimization te chniques: automated exposure control; mA and/or kV adjustment per patient size (includes targeted exa ms where dose is matched to clinical indication); or iterative reconstruction.
--- NOTE | 2021-07-07 20:11 | DI.VRAD_ITS ---
PROCEDURE INFORMATION: Exam: CT Angiography Head With Contrast, Arteriography Exam date and time: 07/07/2021 6:52 PM Age: 60 years old Clinical indication: Visual disturbance; Diplopia; Patient HX: R/O CVA, anuerysym, double vision, HX leukemia; Additional info: Luk[facility] TECHNIQUE: Imaging protocol: Computed tomography angiography of the head with contrast. Exam focused on the arteries. 3D rendering (Not supervised by radiologist): MIP and/or 3D reconstructed images were created by the technologist. Total images: 3069 Radiation optimization: All CT scans at this facility use at least one of these dose optimization techniques: automated exposure control; mA and/or kV adjustment per patient size (includes targeted exams where dose is matched to clinical indication); or iterative reconstruction. Contrast material: OMNIPAQUE 350; Contrast volume: 85 ml; Contrast route: INTRAVENOUS (IV); COMPARISON: No relevant prior studies available. FINDINGS: ANTERIOR CIRCULATION: Right internal carotid artery: The right ICA petrous segment is unremarkable. Mild calcific plaque in the cavernous segment without associated stenosis. The right ICA supraclinoid segment is unremarkable. Right middle cerebral artery: Unremarkable. No occlusion or significant stenosis. No aneurysm. Right anterior cerebral artery: Unremarkable. No occlusion or significant stenosis. No aneurysm. The anterior communicating artery is unremarkable. Left internal carotid artery: The left ICA petrous segment is unremarkable. Mild calcific plaque in the cavernous segment without associated stenosis. The left ICA supraclinoid segment is unremarkable. Left middle cerebral artery: Unremarkable. No occlusion or significant stenosis. No aneurysm. Left anterior cerebral artery: Unremarkable. No occlusion or significant stenosis. No aneurysm. POSTERIOR CIRCULATION: Right vertebral artery: Unremarkable. No occlusion or significant stenosis. No aneurysm. Left vertebral artery: Unremarkable. No occlusion or significant stenosis. No aneurysm. Basilar artery: Normal variant small basilar artery related to the persistent origins of the senior loss control specialist. No occlusion or significant stenosis. No aneurysm. Right posterior cerebral artery: Normal variant persistent origin with hypoplastic right P1 segment. No occlusion or significant stenosis. No aneurysm. Left posterior cerebral artery: Normal variant persistent origin with hypoplastic left P1 segment. No occlusion or significant stenosis. No aneurysm. Veins: The dural venous sinuses and major cortical veins enhance appropriately without evidence of thrombosis. Brain: No extra-axial fluid collections. No evidence of acute intracranial hemorrhage. No CT evidence of large territory acute or subacute intracranial ischemia/infarct. No intracranial mass lesions. No midline shift or herniation. No enhancing brain lesions or vascular malformations are identified. Cerebral ventricles: Ventricles normal. Pituitary gland and sella: The sella is grossly normal. Orbital cavity: Visualized orbital contents demonstrate no acute abnormality. Bones/joints: The calvarium and visualized facial bones are intact. Mastoid air cells: Visualized mastoid air cells are clear. Soft tissues: The scalp and visualized soft tissues demonstrate no acute abnormality. Paranasal sinuses: Mucosal thickening in the maxillary sinuses suggesting mild chronic sinus inflammatory disease. No fluid levels. The other paranasal sinuses are clear. Other findings: Mild generalized atrophy. The IACs are grossly normal. Siddiqui-white differentiation is well maintained. IMPRESSION: 1. No evidence of large vessel occlusion. No evidence of arterial dissection or aneurysm/pseudoaneurysm. 2. No acute intracranial process is evident. 3. Mild atrophy consistent with age. 4. Mild chronic maxillary sinusitis. 5. These findings initiated a critical results reporting process. An addendum will be issued at the time of clinician notification. ASPECTS score is 10. PROCEDURE INFORMATION: Exam: CT Angiography Neck With Contrast Exam date and time: 07/07/2021 6:52 PM Age: 60 years old Clinical indication: Visual disturbance; Diplopia; Patient HX: R/O CVA, anuerysym, double vision, HX leukemia; Additional info: [facility] TECHNIQUE: Imaging protocol: Computed tomography angiography of the neck with contrast. 3D rendering (Not supervised by radiologist): MIP and/or 3D reconstructed images were created by the technologist. Radiation optimization: All CT scans at this facility use at least one of these dose optimization techniques: automated exposure control; mA and/or kV adjustment per patient size (includes targeted exams where dose is matched to clinical indication); or iterative reconstruction. Contrast material: OMNIPAQUE 350; Contrast volume: 85 ml; Contrast route: INTRAVENOUS (IV); COMPARISON: No relevant prior studies available. FINDINGS: Right common carotid artery: Mild tortuosity. No stenosis. No dissection or occlusion. Right internal carotid artery: Mild-moderate tortuosity. No stenosis. No dissection or occlusion. Right external carotid artery: Normal. No stenosis. No dissection or occlusion. Left common carotid artery: Normal. No stenosis. No dissection or occlusion. Left internal carotid artery: Mild-moderate soft plaque in the left carotid bulb. Moderate tortuosity in the mid to proximal left ICA cervical segment. No stenosis. No dissection or occlusion. Left external carotid artery: Normal. No stenosis. No dissection or occlusion. Right vertebral artery: Normal. No stenosis. No dissection or occlusion. Left vertebral artery: Normal. No stenosis. No dissection or occlusion. Brachiocephalic artery: The brachiocephalic artery is unremarkable. Right subclavian artery: The right subclavian artery demonstrates mild calcific plaque without stenosis. Left subclavian artery: The left subclavian artery is unremarkable. Aorta: The visualized aortic arch demonstrates mild ectasia and calcific atherosclerosis without evidence of dissection or nicholas aneurysm. Thyroid: The thyroid gland is unremarkable. Soft tissues: No significant soft tissue swelling or hematoma. Bones/joints: No acute osseous abnormalities are identified. Lungs: The visualized pulmonary apices are clear. IMPRESSION: No evidence of arterial stenosis, occlusion, dissection, or aneurysm/pseudoaneurysm. REFERENCES: NASCET CRITERIA. The degree of internal carotid artery stenosis is based on NASCET criteria. Normal is no stenosis. Mild is less than 50% stenosis. Moderate is 50-69% stenosis. Severe is 70% to 99% stenosis. Total occlusion is no detectable patent lumen. Dictated and Authenticated by: Herber Foley MD. Ordering:JUNG Sylvester MD
[2021-07-07] MEDS: diazePAM 10 MG/2 ML SYR 5 MG IVP (20:20)
--- NOTE | 2021-07-07 20:21 | DI.VRAD_ITS ---
Addendum created by Herber Foley MD on 07/07/2021 8:21:06 PM EST: Addendum: THIS REPORT CONTAINS FINDINGS THAT MAY BE CRITICAL TO PATIENT CARE. The findings were verbally communicated via telephone conference with JAMA FIERRO at 8:20 PM EST on 07/07/2021. The findings were acknowledged and understood. Initial report created on 07/07/2021 8:11:21 PM EST: PROCEDURE INFORMATION: Exam: CT Angiography Head With Contrast, Arteriography Exam date and time: 07/07/2021 6:52 PM Age: 60 years old Clinical indication: Visual disturbance; Diplopia; Patient HX: R/O CVA, anuerysym, double vision, HX leukemia; Additional info: Lukemia TECHNIQUE: Imaging protocol: Computed tomography angiography of the head with contrast. Exam focused on the arteries. 3D rendering (Not supervised by radiologist): MIP and/or 3D reconstructed images were created by the technologist. Total images: 3069 Radiation optimization: All CT scans at this facility use at least one of these dose optimization techniques: automated exposure control; mA and/or kV adjustment per patient size (includes targeted exams where dose is matched to clinical indication); or iterative reconstruction. Contrast material: OMNIPAQUE 350; Contrast volume: 85 ml; Contrast route: INTRAVENOUS (IV); COMPARISON: No relevant prior studies available. FINDINGS: ANTERIOR CIRCULATION: Right internal carotid artery: The right ICA petrous segment is unremarkable. Mild calcific plaque in the cavernous segment without associated stenosis. The right ICA supraclinoid segment is unremarkable. Right middle cerebral artery: Unremarkable. No occlusion or significant stenosis. No aneurysm. Right anterior cerebral artery: Unremarkable. No occlusion or significant stenosis. No aneurysm. The anterior communicating artery is unremarkable. Left internal carotid artery: The left ICA petrous segment is unremarkable. Mild calcific plaque in the cavernous segment without associated stenosis. The left ICA supraclinoid segment is unremarkable. Left middle cerebral artery: Unremarkable. No occlusion or significant stenosis. No aneurysm. Left anterior cerebral artery: Unremarkable. No occlusion or significant stenosis. No aneurysm. POSTERIOR CIRCULATION: Right vertebral artery: Unremarkable. No occlusion or significant stenosis. No aneurysm. Left vertebral artery: Unremarkable. No occlusion or significant stenosis. No aneurysm. Basilar artery: Normal variant small basilar artery related to the persistent origins of the creative resource manager. No occlusion or significant stenosis. No aneurysm. Right posterior cerebral artery: Normal variant persistent origin with hypoplastic right P1 segment. No occlusion or significant stenosis. No aneurysm. Left posterior cerebral artery: Normal variant persistent origin with hypoplastic left P1 segment. No occlusion or significant stenosis. No aneurysm. Veins: The dural venous sinuses and major cortical veins enhance appropriately without evidence of thrombosis. Brain: No extra-axial fluid collections. No evidence of acute intracranial hemorrhage. No CT evidence of large territory acute or subacute intracranial ischemia/infarct. No intracranial mass lesions. No midline shift or herniation. No enhancing brain lesions or vascular malformations are identified. Cerebral ventricles: Ventricles normal. Pituitary gland and sella: The sella is grossly normal. Orbital cavity: Visualized orbital contents demonstrate no acute abnormality. Bones/joints: The calvarium and visualized facial bones are intact. Mastoid air cells: Visualized mastoid air cells are clear. Soft tissues: The scalp and visualized soft tissues demonstrate no acute abnormality. Paranasal sinuses: Mucosal thickening in the maxillary sinuses suggesting mild chronic sinus inflammatory disease. No fluid levels. The other paranasal sinuses are clear. Other findings: Mild generalized atrophy. The IACs are grossly normal. Siddiqui-white differentiation is well maintained. IMPRESSION: 1. No evidence of large vessel occlusion. No evidence of arterial dissection or aneurysm/pseudoaneurysm. 2. No acute intracranial process is evident. 3. Mild atrophy consistent with age. 4. Mild chronic maxillary sinusitis. 5. These findings initiated a critical results reporting process. An addendum will be issued at the time of clinician notification. ASPECTS score is 10. PROCEDURE INFORMATION: Exam: CT Angiography Neck With Contrast Exam date and time: 07/07/2021 6:52 PM Age: 60 years old Clinical indication: Visual disturbance; Diplopia; Patient HX: R/O CVA, anuerysym, double vision, HX leukemia; Additional info: Lukemia TECHNIQUE: Imaging protocol: Computed tomography angiography of the neck with contrast. 3D rendering (Not supervised by radiologist): MIP and/or 3D reconstructed images were created by the technologist. Radiation optimization: All CT scans at this facility use at least one of these dose optimization techniques: automated exposure control; mA and/or kV adjustment per patient size (includes targeted exams where dose is matched to clinical indication); or iterative reconstruction. Contrast material: OMNIPAQUE 350; Contrast volume: 85 ml; Contrast route: INTRAVENOUS (IV); COMPARISON: No relevant prior studies available. FINDINGS: Right common carotid artery: Mild tortuosity. No stenosis. No dissection or occlusion. Right internal carotid artery: Mild-moderate tortuosity. No stenosis. No dissection or occlusion. Right external carotid artery: Normal. No stenosis. No dissection or occlusion. Left common carotid artery: Normal. No stenosis. No dissection or occlusion. Left internal carotid artery: Mild-moderate soft plaque in the left carotid bulb. Moderate tortuosity in the mid to proximal left ICA cervical segment. No stenosis. No dissection or occlusion. Left external carotid artery: Normal. No stenosis. No dissection or occlusion. Right vertebral artery: Normal. No stenosis. No dissection or occlusion. Left vertebral artery: Normal. No stenosis. No dissection or occlusion. Brachiocephalic artery: The brachiocephalic artery is unremarkable. Right subclavian artery: The right subclavian artery demonstrates mild calcific plaque without stenosis. Left subclavian artery: The left subclavian artery is unremarkable. Aorta: The visualized aortic arch demonstrates mild ectasia and calcific atherosclerosis without evidence of dissection or nicholas aneurysm. Thyroid: The thyroid gland is unremarkable. Soft tissues: No significant soft tissue swelling or hematoma. Bones/joints: No acute osseous abnormalities are identified. Lungs: The visualized pulmonary apices are clear. IMPRESSION: No evidence of arterial stenosis, occlusion, dissection, or aneurysm/pseudoaneurysm. REFERENCES: NASCET CRITERIA. The degree of internal carotid artery stenosis is based on NASCET criteria. Normal is no stenosis. Mild is less than 50% stenosis. Moderate is 50-69% stenosis. Severe is 70% to 99% stenosis. Total occlusion is no detectable patent lumen. Dictated and Authenticated by: Herber Foley MD. Ordering:JUNG Sylvester MD
[2021-07-07] MEDS: Ondansetron 4 MG/2 ML VIAL 2 MG IVP (21:10)
[2021-07-07 21:23] LABS: Troponin I < 0.05 ng/mL (<0.06)
[2021-07-07] MEDS: Aspirin 81 MG CHEW 324 MG CH (21:48)
--- NOTE | 2021-07-07 22:20 | DI.VRAD_ITS ---
PROCEDURE INFORMATION: Exam: CT Thoracic Spine Without Contrast Exam date and time: 07/07/2021 8:06 PM Age: 60 years old Clinical indication: Other: Back pain; Additional info: Lukemia TECHNIQUE: Imaging protocol: Computed tomography images of the thoracic spine without contrast. Total images: 2777 COMPARISON: CR XR CHEST 2V PA LATERAL 04/29/2021 3:40 PM FINDINGS: Vertebrae: Old healed fracture of the C7 spinous process with solid bony union. Thoracic vertebral alignment is normal. No acute fractures are identified. 11 mm osteoblastic lesion in the midline T4 lamina at the base of the spinous process which is nonspecific and could represent an incidental bone island. There are no other similar osteoblastic lesions present to specifically favor metastasis, although consider nonemergent assessment with bone scan or PET-CT given the history of malignancy. Discs/Spinal canal/Neural foramina: Moderate disc space narrowing and marginal spurring C6-C7 with moderate left foraminal stenosis due to foraminal spurring. Mild disc space narrowing at numerous mid to lower thoracic levels with mild anterior and lateral marginal spurring. No evidence of significant central canal stenosis. Mild right foraminal stenosis T3-T4 and T5-T6. due to facet hypertrophy and foraminal spurring Soft tissues: 2 mm posterior central soft annular protrusion at T8-T9. Minimal 1-2 mm posterior spurring/annular calcification T2-T3 through T7-T8. Paraspinous soft tissues are unremarkable without significant soft tissue swelling or soft tissue hematoma. Visualized upper abdominal structures were unremarkable. Lungs: Mild bilateral bronchial wall thickening suggesting an element of bronchitis or bronchial edema, with no evidence of bronchiectasis or bronchial occlusions. Pleural spaces: No evidence of pleural effusion or pneumothorax within the scan range. Mediastinum: Visualized mediastinal structures are normal. Thyroid: The visualized thyroid gland is unremarkable. IMPRESSION: 1. No evidence of acute fracture or traumatic subluxation. Old healed fracture of the C7 spinous process. 2. 11 mm osteoblastic lesion in the T4 midline lamina which is nonspecific. Cannot exclude solitary osteoblastic metastasis. Consider nonemergent assessment with bone scan or PET-CT. 3. Multilevel minor degenerative disc space narrowing and marginal spurring in the mid and lower thoracic spine. Minimal noncompressive posterior annular protrusions detailed above. No dominant compressive disc protrusion or extrusion was identified. Mild right foraminal stenosis T3-T4 and T5-T6, and moderate left foraminal stenosis C6-C7. 4. Bronchial wall thickening suggesting an element of bronchitis or bronchial edema. PROCEDURE INFORMATION: Exam: CT Lumbar Spine Without Contrast Exam date and time: 07/07/2021 8:06 PM Age: 60 years old Clinical indication: Other: Back pain; Additional info: Lukemia TECHNIQUE: Imaging protocol: Computed tomography images of the lumbar spine without contrast. The sagittal and coronal reconstructions were made available for review and dictation at 9:13 p.m. central standard time. COMPARISON: CR XR CHEST 2V PA LATERAL 04/29/2021 3:40 PM FINDINGS: Vertebrae: Lumbosacral alignment is normal. No fractures or pars defects. T12-L1: Minimal anterior spurring. Otherwise normal. L1-L2: Minimal anterior spurring. Otherwise normal. L2-L3: 1.5 mm disc bulge. Otherwise normal. No canal or foraminal stenosis. L3-L4: 1.5 mm disc bulge. Slight disc space narrowing. Minimal anterior spurring. No central canal stenosis or neural foraminal stenosis. L4-L5: Slight disc space narrowing. Minimal anterior spurring. 2 mm disc bulge. No central canal stenosis. Mild right foraminal spurring produces slight right foraminal stenosis. L5-S1: Slight disc space narrowing. Mild anterior spurring. No canal or foraminal stenosis. Minimal facet hypertrophic changes. Sacrum/coccyx: Moderate osteoarthritic spurring in the SI joints. Other bones/joints: No blastic or lytic lesions. Soft tissues: No compressive soft disc extrusions or protrusions are identified by CT. Visualized paraspinal soft tissues are normal. Other findings: Visualized retroperitoneal structures are normal. IMPRESSION: 1. No evidence of fracture or traumatic subluxation. 2. Minor degenerative changes detailed above. Dictated and Authenticated by: Herber Foley MD. Ordering:UJNG Sylvester MD
[2021-07-07 22:21] LABS: Source Nasal/Nares
[2021-07-07] MEDS: HYDROmorphone 2 MG/ML VIAL 0.5 MG IVP (22:33)
[2021-07-07 23:11] LABS: COVID-19 PCR Negative (Negative)
--- NOTE | 2021-07-07 23:28 | HPE_ITS ---
Date of service: 07/07/21 Time of Service: 23:28 Assessment and Plan Assessment and plan (1) Diplopia: Status: Acute Assessment and plan: Subjective vertical diplopia w/o objectively observed deficiencies of EOM at bedside. CVA unlikely w/o other s/s, but would continue ASA pending further analysis. 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 Will await MRI and then LP as per Neuro. Other isolated third nerve lesion to also be considered. The back pain is very likely a nonspecific result of recent trauma of biopsy -- essentially same location and onset shortly thereafter. Suffice to say no CT evidence of more specific complication (viz, bleeding or infection). In regard to latter, I do note leukocytosis, but this almost certainly reflects the underlying leukemia and there is besides no fever. Will manage pain symptomatically. Reviewed ADs, requests Full Coide. History of Present Illness History of Present Illness Chief Complaint: diplopia, back pain Narrative: 60 male with recent diagnosis AML, recent hospitalization [facility] eventuating in colostomy from unspecified infection. Had bone marrow biopsy 4 days [employer]NA[employer]. Later that night developed back pain immediately adjacent to biopsy site and was seen following day, without specific diagnosis. 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 Reports that this is mainly for distant objects, and curiously, can be abolished by lying on left side. No WADE, nausea, speech disturbance or weakness. Has some baseline pain and tingling in feet but this is not substantially changed. In ER findings of note for white count 23 with numerous immature forms, including blasts; negative brain CT/CTA; and no abnormal signal at site of bone biopsy, nor significant canal stenosis. Patient was given Oxycodone 10, then MS 4 IVP with good pain relief. Also given ASA 325. Case reviewed with [facility] Neuro who advise MRI in AM, the LP. I was asked to evaluate for admission. Review of Systems All systems reviewed & are unremarkable except as noted in HPI and below PFSH Active Problem List Hypomagnesemia (Acute) Binocular vision disorder with diplopia (Acute) Back pain (Acute) Atrial fibrillation (Active 12/04/12) History of surgery (Active) Gastroesophageal reflux disease (Active) Hx of colonic polyps (Acute) Anemia (Chronic) Leukocytosis (Acute) Medical History GERD (gastroesophageal reflux disease) History of colon polyps Paroxysmal atrial fibrillation Surgical History Colonoscopy - IV Sedation Repair, Tendon or Muscle achilles Tonsillectomy and adenoidectomy Social History Smoking/Tobacco Use Status: Never Smoking risk assessment performed?: Yes Alcohol Intake: current Alcohol Intake frequency: holidays/special occasions only Drug use: Never Do you feel safe at home: Yes Do you feel safe in your relationship?: Yes Meds Allergies and Home Medications Allergies Allergy/AdvReac Type Severity Reaction Status Date / Time metoprolol AdvReac skips in Unverified 07/07/21 18:41 heart rate all sugar substitutes AdvReac Uncoded 07/07/21 18:41 Home Medications Medication Instructions Recorded Confirmed Type bisoprolol fumarate 2.5 mg PO DAILY #30 tab 10/24/16 04/29/21 Rx flecainide 50 mg PO BID tab-cap 12/24/16 07/07/21 History tamsulosin 0.4 mg PO DAILY AM 04/29/21 07/07/21 History famotidine 20 mg PO BID 07/07/21 07/07/21 History lorazepam PRN PRN 07/07/21 History metoprolol tartrate 12.5 mg PO BID 07/07/21 07/07/21 History Exam Narrative Exam Narrative: 123/65, 104, 36.4, 16, 99% RA. HEENT atraumatic; neck supple; lungs clear; heart RRR; abdomen soft and NT, ostomy with liquid stool; back no spinal tenderness, no redness or swelling; well healed punctum overlying right aspect of sacrum c/w biopsy site, which is slightly tender; extremities w/o edema; neuro Ox3, CN PERRL, EOMI, with patient reporting subjective vertical diplopia when target approx 6 feet or more away, but none at close range; intact touch face; no facial asymmetry and tongue protrudes midline, motor 5/5 prox/distal; toes downgoing Results Labs Result diagrams: 07/07/21 18:35 07/07/21 18:35 Labs: Laboratory Results - last 24 hr 07/07/21 07/07/21 07/07/21 18:35 18:35 19:30 WBC 23.11 H RBC 2.73 L Hgb 9.0 L Hct 27.1 L MCV 99.3 H MCH 33.0 MCHC 33.2 RDW 19.6 H Plt Count 121 L MPV 10.1 Immature Gran % See Differential Neutrophils % 44.0 Band Neutrophils % 6 Lymphocytes % 31.0 Atypical Lymphs % 5 Monocytes % 4.0 Eosinophils % 1.0 Basophils % 0.0 Metamyelocytes % 2 Myelocytes % 2 Other Cells % 15 Nucleated RBC % 0 Absolute Neutrophils 11.56 H Absolute Lymphocytes 8.32 H Absolute Monocytes 0.92 H Absolute Eosinophils 0.23 Absolute Basophils 0.00 RBC Morphology Normal Sodium 137 Potassium 3.8 Chloride 102 Carbon Dioxide 24.4 Anion Gap 10.6 BUN 21 H Creatinine 1.2 Estimated GFR/1.73 m2 >= 60.00 Glucose 111 H Calcium 9.5 Magnesium 1.3 L Total Bilirubin 0.2 AST 29 ALT 38 Alkaline Phosphatase 96 Troponin I < 0.05 Total Protein 8.3 H Albumin 3.3 L Urine Color Yellow Urine Clarity Clear Urine pH 5.5 Ur Specific [place] 1.015 Urine Protein Negative Urine Ketones Negative Urine Blood Negative Urine Nitrite Negative Urine Bilirubin Negative Urine Urobilinogen 0.2 Ur Leukocyte Esterase Negative Urine Glucose Negative COVID- Source SARS-CoV-2 (PCR) 07/07/21 07/07/21 21:04 22:20 WBC RBC Hgb Hct MCV MCH MCHC RDW Plt Count MPV Immature Gran % Neutrophils % Band Neutrophils % Lymphocytes % Atypical Lymphs % Monocytes % Eosinophils % Basophils % Metamyelocytes % Myelocytes % Other Cells % Nucleated RBC % Absolute Neutrophils Absolute Lymphocytes Absolute Monocytes Absolute Eosinophils Absolute Basophils RBC Morphology Sodium Potassium Chloride Carbon Dioxide Anion Gap BUN Creatinine Estimated GFR/1.73 m2 Glucose Calcium Magnesium Total Bilirubin AST ALT Alkaline Phosphatase Troponin I < 0.05 Total Protein Albumin Urine Color Urine Clarity Urine pH Ur Specific [place] Urine Protein Urine Ketones Urine Blood Urine Nitrite Urine Bilirubin Urine Urobilinogen Ur Leukocyte Esterase Urine Glucose COVID-19 Source Nasal/Nares SARS-CoV-2 (PCR) Negative Last Vital Signs Temp 36.4 C L 07/07/21 21:52 Pulse 104 H 07/07/21 21:52 Resp 16 07/07/21 21:52 BP 123/65 07/07/21 21:52 Pulse Ox 99 07/07/21 21:52
[2021-07-08 01:18] VITALS: BP 146/82; PULSE 100; RESP 18; TEMP 35.9; O2SAT 97
[2021-07-08] MEDS: Normal Saline 1,000 ML 150 ML IV ×3 (01:38→17:20)
[2021-07-08] MEDS: MORPHine 4 MG/ML SYR IVP (02:31)
[2021-07-08] MEDS: HYDROmorphone 2 MG/ML VIAL 0.5 MG IVP ×2 (04:34→08:35)
[2021-07-08 07:50] LABS: HCT 25.7 % (40.0-50.0); HGB 8.6 g/dL (13.5-17.5); MCHC 33.5 % (32.0-36.0); MCV 98.5 fL (80-95); MPV 10.3 fL (8.0-11.0); Nucleated RBC 0 %; Platelet Count 111 10^3/uL (130-400); RBC 2.61 10^6/uL (4.36-5.78); RDW 19.7 % (11.8-14.1); RDW-SD 70.8 fL; WBC 20.54 10^3/uL (4.4-10.8)
[2021-07-08 08:07] LABS: Absolute Monocyte Count 4.72 10^3/uL (0.1-0.8); Atypical Lymphocytes % 1; Bands % 6; Diff Comment Manual Differential; Metamyelocytes % 2; RBC Morphology Normal
[2021-07-08 08:15] LABS: Magnesium 1.8 mg/dL (1.8-2.4)
[2021-07-08] MEDS: Metoprolol 12.5 MG TAB PO ×2 (08:34→20:30)
[2021-07-08] MEDS: Tamsulosin 0.4 MG CAPCR PO (08:34)
[2021-07-08] MEDS: Famotidine 20 MG TAB PO ×2 (08:34→20:30)
--- NOTE | 2021-07-08 08:46 | PDOC.CMIN ---
- If Service Date Differs Date of service: 07/08/21 Time of Service: 08:47 Care Management Initial Assess REASON FOR HOSPITALIZATION:: Diplopia and back pain PAST MEDICAL HISTORY/PAST SURGICAL HISTORY:: Active Problem List . Hypomagnesemia (Acute). Binocular vision disorder with diplopia (Acute). Back pain (Acute). Atrial fibrillation (Active 12/04/12). History of surgery (Active). Gastroesophageal reflux disease (Active). Hx of colonic polyps (Acute). Anemia (Chronic). Leukocytosis (Acute). Medical History . GERD (gastroesophageal reflux disease). History of colon polyps. Paroxysmal atrial fibrillation PREVIOUS FUNCTIONAL STATUS/SOCIAL/FAMILY SUPPORTS:: Herber lives in an apartment in [place], [place] with his girlfriend. He is currently on disability due to a new diagnosis of leukemia for which he is being treated at [facility] [place]. 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 He is independent at baseline and receives no community services. CURRENT FUNCTIONAL STATUS:: Herber was sitting up in bed when CM met with him. He informed CM that he continues to have back pain. He is scheduled for an MRI today to help identify the source of this pain. Herber shared that he has been undergoing chemotherapy for leukemia and that he only has 5 days left. Each course is several days long and requires an inpatient stay at [facility] [place]. According to Herber, he is responding well to treatment. ADVANCE DIRECTIVES:: none on file Has patient been provided with info about the portal/API?: Yes Did the patient sign up for the portal?: No CODE STATUS:: Full Code INSURANCE COVERAGE / FINANCIAL ISSUES:: [employer] CURRENT HOME/COMMUNITY SERVICES/EQUIPMENT:: none PRIMARY CARE PHYSICIAN:: Beatriz Maurice POTENTIAL DISCHARGE NEEDS:: Follow up with PCP and plan of care PATIENT/FAMILY EDUCATION NEEDS:: Review of discharge instructions including medications, activity, limitations and follow up plan, discuss [employer] TRANSPORTATION:: via private vehicle PLAN:: Herber will likely de discharged with no new services. He will follow up with his community providers and plan of care and transport with friends/family. CM will continue to support Herber and his discharge planning needs.
[2021-07-08 09:00] VITALS: BP 140/79; PULSE 104; RESP 18; TEMP 37; O2SAT 98
--- NOTE | 2021-07-08 09:00 | W.PALLCONSUL ---
Date of service: 07/08/21 Time of Service: 09:00 History of Present Illness History of Present Illness Chief Complaint: BAck pain Narrative: From H and P: History of Present Illness Chief Complaint: diplopia, back pain Narrative: 60 male with recent diagnosis AML, recent hospitalization [facility] eventuating in colostomy from unspecified infection. Had bone marrow biopsy 4 days [employer]. Later that night developed back pain immediately adjacent to biopsy site and was seen following day, without specific diagnosis. 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 Reports that this is mainly for distant objects, and curiously, can be abolished by lying on left side. No WADE, nausea, speech disturbance or weakness. Has some baseline pain and tingling in feet but this is not substantially changed. In ER findings of note for white count 23 with numerous immature forms, including blasts; negative brain CT/CTA; and no abnormal signal at site of bone biopsy, nor significant canal stenosis. Patient was given Oxycodone 10, then MS 4 IVP with good pain relief. Also given ASA 325. Case reviewed with [facility] Neuro who advise MRI in AM, the LP. I was asked to evaluate for admission. 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 He did have a bone marrow biopsy on his right hip recently. He has been having some pain near this site. He does not know if it is related. So far he has received some oxycodone and feels that it helps minimally. He also has diplopia. If he closes either eye he only sees 1 object. If he lies on his left side he only sees one object. But if he uses both eyes or is laying on his back he sees 2 objects. After telling me about today's concerns, Herber related how difficult his life is been and he tries to stay positive. He has had battles with atrial fibrillation needing ablation, leukemia, now there is vision change, C. difficile resulting in long hospitalization and losing most of his colon etc. it is really taken its toll on him. He still tries to remain positive. Assessment and Plan Assessment and plan (1) Diplopia: Status: Acute (2) Atrial fibrillation: Status: Active (3) Leukemia: Status: Chronic (4) Back pain: Status: Acute (5) Palliative care patient: Status: Acute Assessment and plan: Discussion regarding Code Status preferences - patient wants to be a Full Code We talked about all of his problems that he has been having. At this time he feels that he needs to go forward with both his leukemia treatment, his C. difficile, and figure out his vision changes. After long discussion about CODE STATUS he wants to remain a full code. We did discuss how palliative care can be helpful when he has [facility] in his care. He states that he will contact me if he has concerns and wants to talk about best next steps. Thank you very much for involving me in Herber's care Review of Systems Constitutional Constitutional: Reports body ache(s) and Denies fever(s) Eyes Eyes: Reports change in vision and Reports diplopia Cardiovascular Cardiovascular: Denies dyspnea Comments: a fib Respiratory Respiratory: Reports system reviewed and no additional complaints, except as documented, Denies cough and Denies dyspnea Gastrointestinal Gastrointestinal: Reports diarrhea (in past with c diff) Musculoskeletal Comments: back pain on his right Hematologic/Lymphatic Comments: Known leukemia with leukocytosis [facility] Active Problem List Leukemia (Chronic) BPH (benign prostatic hyperplasia) (Chronic) Recurrent Clostridioides difficile diarrhea (Acute) Diplopia (Acute) Hypomagnesemia (Acute) Binocular vision disorder with diplopia (Acute) Back pain (Acute) Atrial fibrillation (Active 12/04/12) History of surgery (Active) Gastroesophageal reflux disease (Active) Hx of colonic polyps (Acute) Anemia (Chronic) Leukocytosis (Acute) Medical History GERD (gastroesophageal reflux disease) History of colon polyps Paroxysmal atrial fibrillation Surgical History Colonoscopy - IV Sedation Repair, Tendon or Muscle achilles Tonsillectomy and adenoidectomy Social History Smoking/Tobacco Use Status: Never Smoking risk assessment performed?: Yes Alcohol Intake: current Alcohol Intake frequency: holidays/special occasions only Drug use: Never Do you feel safe at home: Yes Do you feel safe in your relationship?: Yes Exam Eyes Alignment and Position: alignment normal Eyelids: eyelids normal Conjunctivae: conjunctivae normal Pupils: PERRL Resp Effort & Inspection: normal respiratory effort and able to speak in complete sentences Auscultation: clear to auscultation bilaterally Cardio Rate: regular rate Heart Sounds: murmur Back/Spine/Pelvis Back: no CVA tenderness Other: Palpating his back did not produce any pain more than what he was already having. Range of motion was normal. Muscle strength heel walk toe walk normal reflexes normal straight leg raise there is some hamstring tightness but no radiation of pain from his back to his legs Results Last Vital Signs Temp 96.6 F L 07/08/21 01:18 Pulse 100 H 07/08/21 01:18 Resp 18 07/08/21 01:18 BP 146/82 H 07/08/21 01:18 Pulse Ox 97 07/08/21 01:[address] IMPRESSION: Thoracic spine: Mild right neural foraminal narrowing T3-4 and T5-6. Sclerotic lesion in the midline lamina of T4 of uncertain clinical significance. Comparison with prior examination is recommended if available. Lumbar spine: Mild degenerative disc changes. No lytic or blastic lesions. Brain MRI MPRESSION: Unremarkable MRI of the brain. Head and neck CT: IMPRESSION: 1. Normal CTA examination of the [place]. 2. Unremarkable CT Head. 3. Mild soft plaque left common carotid bulb. No significant stenosis. No evidence of dissection.. Labs Result diagrams: 07/10/21 06:48 07/10/21 06:48 Labs: Laboratory Results - last 24 hr 07/07/21 07/07/21 07/07/21 18:35 18:35 19:30 WBC 23.11 H RBC 2.73 L Hgb 9.0 L Hct 27.1 L MCV 99.3 H MCH 33.0 MCHC 33.2 RDW 19.6 H Plt Count 121 L MPV 10.1 Immature Gran % See Differential Neutrophils % 44.0 Band Neutrophils % 6 Lymphocytes % 31.0 Atypical Lymphs % 5 Monocytes % 4.0 Eosinophils % 1.0 Basophils % 0.0 Metamyelocytes % 2 Myelocytes % 2 Other Cells % 15 Nucleated RBC % 0 Absolute Neutrophils 11.56 H Absolute Lymphocytes 8.32 H Absolute Monocytes 0.92 H Absolute Eosinophils 0.23 Absolute Basophils 0.00 RBC Morphology Normal Sodium 137 Potassium 3.8 Chloride 102 Carbon Dioxide 24.4 Anion Gap 10.6 BUN 21 H Creatinine 1.2 Estimated GFR/1.73 m2 >= 60.00 Glucose 111 H Calcium 9.5 Magnesium 1.3 L Total Bilirubin 0.2 AST 29 ALT 38 Alkaline Phosphatase 96 Troponin I < 0.05 Total Protein 8.3 H Albumin 3.3 L Urine Color Yellow Urine Clarity Clear Urine pH 5.5 Ur Specific [place] 1.015 Urine Protein Negative Urine Ketones Negative Urine Blood Negative Urine Nitrite Negative Urine Bilirubin Negative Urine Urobilinogen 0.2 Ur Leukocyte Esterase Negative Urine Glucose Negative COVID-19 Source SARS-CoV-2 (PCR) 07/07/21 07/07/21 07/08/21 21:04 22:20 07:28 WBC RBC Hgb Hct MCV MCH MCHC RDW Plt Count MPV Immature Gran % Neutrophils % Band Neutrophils % Lymphocytes % Atypical Lymphs % Monocytes % Eosinophils % Basophils % Metamyelocytes % Myelocytes % Other Cells % Nucleated RBC % Absolute Neutrophils Absolute Lymphocytes Absolute Monocytes Absolute Eosinophils Absolute Basophils RBC Morphology Sodium Potassium Chloride Carbon Dioxide Anion Gap BUN Creatinine Estimated GFR/1.73 m2 Glucose Calcium Magnesium 1.8 Total Bilirubin AST ALT Alkaline Phosphatase Troponin I < 0.05 Total Protein Albumin Urine Color Urine Clarity Urine pH Ur Specific [place] Urine Protein Urine Ketones Urine Blood Urine Nitrite Urine Bilirubin Urine Urobilinogen Ur Leukocyte Esterase Urine Glucose COVID-19 Source Nasal/Nares SARS-CoV-2 (PCR) Negative 07/08/21 07:28 WBC 20.54 H RBC 2.61 L Hgb 8.6 L Hct 25.7 L MCV 98.5 H MCH 33.0 MCHC 33.5 RDW 19.7 H Plt Count 111 L MPV 10.3 Immature Gran % 0.0 Neutrophils % 50.0 Band Neutrophils % 6 Lymphocytes % 18.0 Atypical Lymphs % 1 Monocytes % 23.0 Eosinophils % 0.0 Basophils % 0.0 Metamyelocytes % 2 Myelocytes % Other Cells % Nucleated RBC % 0 Absolute Neutrophils 11.50 H Absolute Lymphocytes 3.90 H Absolute Monocytes 4.72 H Absolute Eosinophils 0.00 Absolute Basophils 0.00 RBC Morphology Normal Sodium Potassium Chloride Carbon Dioxide Anion Gap BUN Creatinine Estimated GFR/1.73 m2 Glucose Calcium Magnesium Total Bilirubin AST ALT Alkaline Phosphatase Troponin I Total Protein Albumin Urine Color Urine Clarity Urine pH Ur Specific [place] Urine Protein Urine Ketones Urine Blood Urine Nitrite Urine Bilirubin Urine Urobilinogen Ur Leukocyte Esterase Urine Glucose COVID-19 Source SARS-CoV-2 (PCR)
[2021-07-08] MEDS: Acetaminophen 325 MG TAB 650 MG PO ×4 (09:52→20:30)
[2021-07-08] MEDS: Lidocaine 5% Patch 2 PATCH TP (09:53)
[2021-07-08] MEDS: Ketorolac 15 MG/ML VIAL IVP (10:45)
[2021-07-08 11:12] LABS: C Diff PCR Positive (Negative)
--- NOTE | 2021-07-08 11:32 | PHA.REVIEW ---
Pharmacy Admission Review - Admission Clinical Review (Last Reviewed 07/07/21 @ 23:38 by Graham Betancourt MD) Diplopia (Acute) Hypomagnesemia (Acute) Binocular vision disorder with diplopia (Acute) Back pain (Acute) metoprolol Adverse Reaction (Unverified 07/07/21 18:41) skips in heart rate all sugar substitutes Adverse Reaction (Uncoded 07/07/21 18:41) Resuscitation Status Full Code Height 5 ft 11 in Weight 99.836 kg - Renal Dosing Renal Dosing: BUN 21 mg/dL (7-18) H 07/07/21 18:35 Creatinine 1.2 mg/dL (0.70-1.30) 07/07/21 18:35 Medications needing adjustments: Reviewed (Crcl ~78.8 mL/min using adjusted body, current meds okay.) - Anticoagulation Anticoagulation: Hgb 8.6 g/dL (13.5-17.5) L 07/08/21 07:28 Hct 25.7 % (40.0-50.0) L 07/08/21 07:28 Plt Count 111 10^3/uL (130-400) L 07/08/21 07:28 Creatinine 1.2 mg/dL (0.70-1.30) 07/07/21 18:35 DVT Prophylaxis: Reviewed (Pt. due to have a LP today per H&P, plts a little low and H/H down a little from yesterday. Watch for possible anticoagulation post LP.) Therapeutic Anticoagulation: N/A - Opiate Usage Evaluate Pain Scale/Pains Meds: Reviewed (C.Diff positive but no diarrhea noted, unsure if will need BM meds?) Scheduled Bowel Reg ordered if on Opiates?: No - Relevant Labs Sodium 137 mmol/L (136-145) 07/07/21 18:35 Potassium 3.8 mmol/L (3.5-5.1) 07/07/21 18:35 Chloride 102 mmol/L (98-107) 07/07/21 18:35 Magnesium 1.8 mg/dL (1.8-2.4) 07/08/21 07:28 Electrolytes, C-Reactive P, ESR: Reviewed (Mag within normal limits following replacement yesterday.) - DM Control DM Control: Glucose 111 mg/dL (74-106) H 07/07/21 18:35 Insulin Dosing: N/A - Heart Failure/IL Heart Failure/IL: Troponin I < 0.05 ng/mL (<0.06) 07/07/21 21:04 EF%, RO's, B-Blockers, Diuretics: Reviewed - BP Control BP Control: Blood Pressure 140/79 Blood Pressure 146/82 If elevated: Reviewed (BP elevated on admission and once overnight, but has been within normal limits since then.) - Qtc Review If Elevated: N/A (QTc 440 on admission) - IV to PO Switch IV Medications: Reviewed - Home Meds Home Med List reviewed: Intervened (Looks like lorazepam was a one time order from [facility] prior to biopsy, and pt has most recently been on metoprolol not bisoprolol per external med history, so both lorazepam and bisoprolol were removed from pt's home med list.) Relevent Home Meds Not ordered & why?: All home meds are currently ordered. - Current meds Current Medication Order Review: Reviewed - Comments Comments/Follow Ups: Watch BP, H/H, plts, labs, and for med changes (possible anticoagulation, possible need of BM meds). Antibiotic Activity - Pharmacy Antibiotic Review Pharmacy Antibiotic Activity: Reviewed, no change (Fidaxomicin ordered for C.Diff (PCR positive).)
[2021-07-08] MEDS: LORazepam 2 MG/ML VIAL 0.5 MG IVP (11:54)
[2021-07-08] MEDS: Gadoterate meglumine 20 ML VIAL 10 ML IVP (12:42)
[2021-07-08] MEDS: Normal Saline Flush 10 ML SYR IVP (12:42)
[2021-07-08] MEDS: Fidaxomicin 200 MG TAB PO ×2 (14:11→20:30)
[2021-07-08 15:30] VITALS: BP 102/68; PULSE 97; RESP 18; TEMP 37.1; O2SAT 95
--- NOTE | 2021-07-08 15:45 | PGE_ITS ---
Date of Service Date of service: 07/08/21 Time of Service: 15:45 Assessment and Plan Assessment and plan (1) Diplopia: Status: Acute Assessment and plan: MRI shows no acute findings. awaiting neurology consult (2) Recurrent Clostridioides difficile diarrhea: Status: Acute Assessment and plan: started on dificid afebrile with no abdominal pain (3) BPH (benign prostatic hyperplasia): Status: Chronic Assessment and plan: continue flomax (4) Paroxysmal atrial fibrillation: Assessment and plan: in NSR, continue flecainide discussed with Dr Parra Subjective Subjective Patient reports: no new complaints, still having pain and afebrile Exam Const General: cooperative, comfortable, no acute distress, frail appearing and ill appearing Nutritional Appearance: average body habitus Orientation: alert, awake and oriented x3 HENMT Head: normal to inspection, normocephalic and atraumatic Resp Effort & Inspection: normal respiratory effort Auscultation: clear to auscultation bilaterally Cardio Rate: regular rate Rhythm: regular rhythm GI Inspection: normal to inspection Palpation: soft Auscultation: normal bowel sounds Skin General skin exam: no rashes or lesions noted Neuro General: patient alert and patient awake Objective Last Vital Signs Temp 37.1 C 07/08/21 15:30 Pulse 97 H 07/08/21 15:30 Resp 18 07/08/21 15:30 BP 102/68 07/08/21 15:30 Pulse Ox 95 07/08/21 15:30 Laboratory Results - last 24 hr 07/07/21 07/07/21 07/07/21 18:35 18:35 19:30 WBC 23.11 H RBC 2.73 L Hgb 9.0 L Hct 27.1 L MCV 99.3 H MCH 33.0 MCHC 33.2 RDW 19.6 H Plt Count 121 L MPV 10.1 Immature Gran % See Differential Neutrophils % 44.0 Band Neutrophils % 6 Lymphocytes % 31.0 Atypical Lymphs % 5 Monocytes % 4.0 Eosinophils % 1.0 Basophils % 0.0 Metamyelocytes % 2 Myelocytes % 2 Other Cells % 15 Nucleated RBC % 0 Absolute Neutrophils 11.56 H Absolute Lymphocytes 8.32 H Absolute Monocytes 0.92 H Absolute Eosinophils 0.23 Absolute Basophils 0.00 RBC Morphology Normal Sodium 137 Potassium 3.8 Chloride 102 Carbon Dioxide 24.4 Anion Gap 10.6 BUN 21 H Creatinine 1.2 Estimated GFR/1.73 m2 >= 60.00 Glucose 111 H Calcium 9.5 Magnesium 1.3 L Total Bilirubin 0.2 AST 29 ALT 38 Alkaline Phosphatase 96 Troponin I < 0.05 Total Protein 8.3 H Albumin 3.3 L Urine Color Yellow Urine Clarity Clear Urine pH 5.5 Ur Specific [place] 1.015 Urine Protein Negative Urine Ketones Negative Urine Blood Negative Urine Nitrite Negative Urine Bilirubin Negative Urine Urobilinogen 0.2 Ur Leukocyte Esterase Negative Urine Glucose Negative Stl C.difficile Tox PCR COVID-19 Source SARS-CoV-2 (PCR) 07/07/21 07/07/21 07/08/21 21:04 22:20 06:00 WBC RBC Hgb Hct MCV MCH MCHC RDW Plt Count MPV Immature Gran % Neutrophils % Band Neutrophils % Lymphocytes % Atypical Lymphs % Monocytes % Eosinophils % Basophils % Metamyelocytes % Myelocytes % Other Cells % Nucleated RBC % Absolute Neutrophils Absolute Lymphocytes Absolute Monocytes Absolute Eosinophils Absolute Basophils RBC Morphology Sodium Potassium Chloride Carbon Dioxide Anion Gap BUN Creatinine Estimated GFR/1.73 m2 Glucose Calcium Magnesium Total Bilirubin AST ALT Alkaline Phosphatase Troponin I < 0.05 Total Protein Albumin Urine Color Urine Clarity Urine pH Ur Specific [place] Urine Protein Urine Ketones Urine Blood Urine Nitrite Urine Bilirubin Urine Urobilinogen Ur Leukocyte Esterase Urine Glucose Stl C.difficile Tox PCR Positive A COVID-19 Source Nasal/Nares SARS-CoV-2 (PCR) Negative 07/08/21 07/08/21 07:28 07:28 WBC 20.54 H RBC 2.61 L Hgb 8.6 L Hct 25.7 L MCV 98.5 H MCH 33.0 MCHC 33.5 RDW 19.7 H Plt Count 111 L MPV 10.3 Immature Gran % 0.0 Neutrophils % 50.0 Band Neutrophils % 6 Lymphocytes % 18.0 Atypical Lymphs % 1 Monocytes % 23.0 Eosinophils % 0.0 Basophils % 0.0 Metamyelocytes % 2 Myelocytes % Other Cells % Nucleated RBC % 0 Absolute Neutrophils 11.50 H Absolute Lymphocytes 3.90 H Absolute Monocytes 4.72 H Absolute Eosinophils 0.00 Absolute Basophils 0.00 RBC Morphology Normal Sodium Potassium Chloride Carbon Dioxide Anion Gap BUN Creatinine Estimated GFR/1.73 m2 Glucose Calcium Magnesium 1.8 Total Bilirubin AST ALT Alkaline Phosphatase Troponin I Total Protein Albumin Urine Color Urine Clarity Urine pH Ur Specific [place] Urine Protein Urine Ketones Urine Blood Urine Nitrite Urine Bilirubin Urine Urobilinogen Ur Leukocyte Esterase Urine Glucose Stl C.difficile Tox PCR COVID-19 Source SARS-CoV-2 (PCR)
--- NOTE | 2021-07-08 15:49 | W.NUTRFU ---
Date of service: 07/08/21 Time of Service: 15:49 Nutrition Note NOTE: Assessment: Mr. Iverson was sleeping when I went in to speak with him. Looking at his weight history, he has had a 15% weight loss in two months which is significant. His BMI is 30.7 kg/m2 which is c/w class 1 obesity. He is currently ordered for a regular diet but there is no history yet of how well he is eating here. Nutrition diagnosis: Significant weight loss Intervention: Will offer nutritional supplements and/or assess from him anything we can do to help him eat better. Monitoring and Evaluation: Will continue to monitor weight and PO. Will evaluate nutrition care plan ongoing and adjust as needed. Time Spent in Nutritional Counseling and Treatment: 0
--- NOTE | 2021-07-08 17:11 | W.NEUROCONSU ---
Date of service: 07/08/21 Time of Service: 17:11 Assessment and Plan Assessment and plan (1) Diplopia: Status: Acute (2) Leukemia: Status: Chronic (3) Back pain: Status: Acute Assessment and plan: Mr. 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 His neurological exam was normal today for me. Based on his clinical symptoms of vertical diplopia, it sounds like a cranial IV palsy vs skew palsy. DDx of diplopia includes ischemic, vs infectious/carcinogenic - especially in light of new back pain with bilateral radicular symptoms, vs congenital decompensated - would need ophthalmology/optometry evaluation to determine this. Agree with addition of aspirin 81mg daily, TTE, and extended cardiac monitoring given concern for ischemic nerve palsy - please note this would not be due atrial fibrillation. Agree with LP as further work-up for infectious vs carcinogenic etiology. Agree with recommended testing as per previous discussion with heme-onc and [facility] neurology including cytology. Consider L-spine and T-spine MRI imaging w/wo prior given back pain and radicular symptoms. Will need outpatient ophthalmology follow-up. History of Present Illness History of Present Illness Chief Complaint: diplopoia Narrative: Handedness: right. HPI: Mr. Iverson is a 60 year-old man diagnosed with AML in Apr 2021, paroxysmal afib (not on anticoagulation), BPH, and GERD. 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 S/p right hip bone marrow biopsy on 07/04/21. Since the biopsy, noted increasing low back pain, with pain, numbness, tingling radiating into his legs bilaterally. On 07/06/21, had episode of vertical diploia while shopping that seemed to resolve after some time. The next am, 07/07/21, woke up with vertical diplopia that has persisted ever since. Binocular as it resolves with either eye closed. He has noted that symptoms are improved when laying on his left side and worse when laying on his right side. Worse with distance compared to up close. Does not recall any prior episodes of diplopia. He does not know if he has a head tilt. He did not have any old pictures of himself for me to examine. He notes some improvement since admission. No headaches. No fevers, chills, or night sweats. Labs: WBC 23.11 -> 20.54 (compared to 7.3 on 07/01/21). Hgb 9.0 -> 8.6. Plt 121 -> 111. Cr 1.2, Mag 1.3 -> 1.8, Trop x2 neg, UA ok. Cdiff+. Imaging: -CTH (07/07/21): unremarkable. I reviewed these images personally and this is my personal interpretation. -CTA head/neck (07/07/21): unremarkable. I reviewed these images personally and this is my personal interpretation. -MRI brain w/wo (07/08/21): no acute findings. Unremarkable. I reviewed these images personally and this is my personal interpretation. Consults Requesting physician: Nas Parra [facility] Active Problem List Leukemia (Chronic) BPH (benign prostatic hyperplasia) (Chronic) Recurrent Clostridioides difficile diarrhea (Acute) Diplopia (Acute) Hypomagnesemia (Acute) Binocular vision disorder with diplopia (Acute) Back pain (Acute) Atrial fibrillation (Active 12/04/12) History of surgery (Active) Gastroesophageal reflux disease (Active) Hx of colonic polyps (Acute) Anemia (Chronic) Leukocytosis (Acute) Medical History GERD (gastroesophageal reflux disease) History of colon polyps Paroxysmal atrial fibrillation Surgical History Colonoscopy - IV Sedation Repair, Tendon or Muscle achilles Tonsillectomy and adenoidectomy Social History Smoking/Tobacco Use Status: Never Smoking risk assessment performed?: Yes Alcohol Intake: current Alcohol Intake frequency: holidays/special occasions only Drug use: Never Do you feel safe at home: Yes Do you feel safe in your relationship?: Yes Visit Medication and Allergies Active Medications Generic Name Dose Route Start Last Admin Trade Name Freq PRN Reason Stop Dose Admin Acetaminophen 650 mg 07/08/21 09:10 07/08/21 16:18 Acetaminophen 325 Mg Tab PO 650 mg QID PIERCE Administration Dimethicone/Zinc Oxide 0 gm 07/07/21 23:51 Jose Guadalupe Protect Cream 142 Gm Tube TP PRN PRN Famotidine 20 mg 07/08/21 08:30 07/08/21 08:34 Famotidine 20 Mg Tab PO 20 mg BID PIERCE Administration Fidaxomicin 200 mg 07/08/21 11:20 07/08/21 14:11 Fidaxomicin 200 Mg Tab PO 200 mg BID PIERCE Administration Flecainide Acetate 50 mg 07/08/21 08:30 07/08/21 08:34 Flecainide 100 Mg Tab PO 50 mg BID PIERCE Administration Hydromorphone HCl 0.5 mg 07/07/21 21:58 07/08/21 08:35 Hydromorphone 2 Mg/Ml Vial IVP 0.5 mg Q4H PRN PRN Administration Sodium Chloride 500 mls @ 0 mls/hr 07/07/21 18:28 Saline 500ml Bag IV PRN PRN As Directed Sodium Chloride 1,000 mls @ 150 mls/hr 07/07/21 19:30 07/08/21 14:04 Saline 1000ml Bag IV 150 mls/hr INFUSION PIERCE Infusion Promethazine HCl 25 mg/ Sodium 51 mls @ 200 mls/hr 07/07/21 23:56 Chloride IVPB Q6H PRN PRN IV Miscellaneous Supplies 1 each 07/07/21 18:30 Iv Access IV DIRECTED [facility] Ketorolac Tromethamine 15 mg 07/08/21 09:09 07/08/21 10:45 Ketorolac 15 Mg/Ml Vial IVP 07/13/21 09:08 15 mg Q6H PRN PRN Administration Lidocaine 2 patch 07/08/21 10:00 07/08/21 09:53 Lidocaine 5% Patch TP 2 patch Q24H PIERCE Administration Metoprolol Tartrate 12.5 mg 07/08/21 08:30 07/08/21 08:34 Metoprolol 12.5 Mg Tab PO 12.5 mg BID PIERCE Administration Miscellaneous 2 each 07/08/21 22:00 Lidocaine Patch Removal TD Q24H PIERCE Sodium Chloride 0 ml 07/07/21 18:28 07/08/21 12:42 Normal Saline Flush 10 Ml Syr IVP 10 ml PRN PRN Administration Tamsulosin HCl 0.4 mg 07/08/21 08:30 07/08/21 08:34 Tamsulosin 0.4 Mg Capcr PO 0.4 mg DAILY PIERCE Administration Zolpidem Tartrate 5 mg 07/07/21 23:55 Zolpidem 5 Mg Tab PO HS PRN MAY REPEAT X1 PRN Allergies metoprolol Adverse Reaction (Unverified 07/07/21 18:41) skips in heart rate all sugar substitutes Adverse Reaction (Uncoded 07/07/21 18:41) Exam Narrative Exam Narrative: Physical Exam: Gen: Patient of apparent stated age, NAD Head and face: no facial or cranial abnormalities Neck: Supple, no meningismus, no occipital tenderness Abd: soft, nontender, nondistended Ext: No edema. No clubbing or cyanosis. No bony deformity. Neuro Exam: Language: fluency, naming, repetition, and comprehension intact; Mental Status: AAOx3, current events intact, fund of knowledge intact; Speech: no dysarthria Cranial nerves: Funduscopy: not performed CN II: visual jacobs intact CN III, IV, : extraocular movements intact, no nystagmus, pupils symmetric and reactive to light; no diplopia on my exam CN V: face sensation intact to LT and PP CN VII: no facial asymmetry noted CN VIII: hearing intact bilaterally CN IX, X: palate rises symmetrically CN XI: trapezius/SCM 5/5 bilaterally CN XII: protrudes tongue symmetrically Sensory: intact to LT in all extremities Motor: bulk and tone intact. Fine motor movements intact bilaterally. No pronator drift. Strength 5/5 throughout including the deltoids, biceps, triceps, wrist extensors, hip flexors, knee flexors, knee extensors, ankle flexors, and ankle extensors. Reflexes: toes down going bilaterally; Coordination: FTN and HTS intact bilaterally Gait: not tested Results Last Vital Signs Temp 98.8 F 07/08/21 15:30 Pulse 97 H 07/08/21 15:30 Resp 18 07/08/21 15:30 BP 102/68 07/08/21 15:30 Pulse Ox 95 07/08/21 15:30 Labs Result diagrams: 07/08/21 07:28 07/07/21 18:35 Labs: Laboratory Results - last 24 hr 07/07/21 07/07/21 07/07/21 18:35 18:35 19:30 WBC 23.11 H RBC 2.73 L Hgb 9.0 L Hct 27.1 L MCV 99.3 H MCH 33.0 MCHC 33.2 RDW 19.6 H Plt Count 121 L MPV 10.1 Immature Gran % See Differential Neutrophils % 44.0 Band Neutrophils % 6 Lymphocytes % 31.0 Atypical Lymphs % 5 Monocytes % 4.0 Eosinophils % 1.0 Basophils % 0.0 Metamyelocytes % 2 Myelocytes % 2 Other Cells % 15 Nucleated RBC % 0 Absolute Neutrophils 11.56 H Absolute Lymphocytes 8.32 H Absolute Monocytes 0.92 H Absolute Eosinophils 0.23 Absolute Basophils 0.00 RBC Morphology Normal Sodium 137 Potassium 3.8 Chloride 102 Carbon Dioxide 24.4 Anion Gap 10.6 BUN 21 H Creatinine 1.2 Estimated GFR/1.73 m2 >= 60.00 Glucose 111 H Calcium 9.5 Magnesium 1.3 L Total Bilirubin 0.2 AST 29 ALT 38 Alkaline Phosphatase 96 Troponin I < 0.05 Total Protein 8.3 H Albumin 3.3 L Urine Color Yellow Urine Clarity Clear Urine pH 5.5 Ur Specific [place] 1.015 Urine Protein Negative Urine Ketones Negative Urine Blood Negative Urine Nitrite Negative Urine Bilirubin Negative Urine Urobilinogen 0.2 Ur Leukocyte Esterase Negative Urine Glucose Negative Stl C.difficile Tox PCR COVID-19 Source SARS-CoV-2 (PCR) 07/07/21 07/07/21 07/08/21 21:04 22:20 06:00 WBC RBC Hgb Hct MCV MCH MCHC RDW Plt Count MPV Immature Gran % Neutrophils % Band Neutrophils % Lymphocytes % Atypical Lymphs % Monocytes % Eosinophils % Basophils % Metamyelocytes % Myelocytes % Other Cells % Nucleated RBC % Absolute Neutrophils Absolute Lymphocytes Absolute Monocytes Absolute Eosinophils Absolute Basophils RBC Morphology Sodium Potassium Chloride Carbon Dioxide Anion Gap BUN Creatinine Estimated GFR/1.73 m2 Glucose Calcium Magnesium Total Bilirubin AST ALT Alkaline Phosphatase Troponin I < 0.05 Total Protein Albumin Urine Color Urine Clarity Urine pH Ur Specific [place] Urine Protein Urine Ketones Urine Blood Urine Nitrite Urine Bilirubin Urine Urobilinogen Ur Leukocyte Esterase Urine Glucose Stl C.difficile Tox PCR Positive A COVID-19 Source Nasal/Nares SARS-CoV-2 (PCR) Negative 07/08/21 07/08/21 07:28 07:28 WBC 20.54 H RBC 2.61 L Hgb 8.6 L Hct 25.7 L MCV 98.5 H MCH 33.0 MCHC 33.5 RDW 19.7 H Plt Count 111 L MPV 10.3 Immature Gran % 0.0 Neutrophils % 50.0 Band Neutrophils % 6 Lymphocytes % 18.0 Atypical Lymphs % 1 Monocytes % 23.0 Eosinophils % 0.0 Basophils % 0.0 Metamyelocytes % 2 Myelocytes % Other Cells % Nucleated RBC % 0 Absolute Neutrophils 11.50 H Absolute Lymphocytes 3.90 H Absolute Monocytes 4.72 H Absolute Eosinophils 0.00 Absolute Basophils 0.00 RBC Morphology Normal Sodium Potassium Chloride Carbon Dioxide Anion Gap BUN Creatinine Estimated GFR/1.73 m2 Glucose Calcium Magnesium 1.8 Total Bilirubin AST ALT Alkaline Phosphatase Troponin I Total Protein Albumin Urine Color Urine Clarity Urine pH Ur Specific [place] Urine Protein Urine Ketones Urine Blood Urine Nitrite Urine Bilirubin Urine Urobilinogen Ur Leukocyte Esterase Urine Glucose Stl C.difficile Tox PCR COVID-19 Source SARS-CoV-2 (PCR)
[2021-07-08 20:31] VITALS: BP 149/92; PULSE 105; RESP 16; TEMP 37.1; O2SAT 94
[2021-07-08] MEDS: Zolpidem 5 MG TAB PO (22:21)
[2021-07-08] MEDS: Lidocaine Patch Removal 2 EACH TD (22:37)
[2021-07-08 23:44] VITALS: BP 141/82; PULSE 92; RESP 18; TEMP 36.7; O2SAT 96
--- NOTE | 2021-07-09 | DI.MRI_ITS ---
Exam(s) MR LUMBAR SPINE WO/W EXAM: MR LUMBAR SPINE WO/W INDICATION: LBP, s/p biopsy, AML. COMPARISON: CT CT THORACIC LUMBAR SPINE WO from 07/07/[address] THORACIC LUMBAR SPINE WO from 07/07/2021 MR MR THORACIC SPINE WO/W from 07/09/2021 MR MR THORACIC SPINE WO/W from 07/09/2021 TECHNIQUE: MR examination of the lumbosacral spine was performed according to the usual protocol. A dditional pre and post contrast T1 fat sat imaging was also obtained. FINDINGS: No significant bony signal abnormality is seen. Intervertebral discs show normal signal. There is m inimal facet arthropathy consistent with the patient's age.. The conus medullaris appears intact. There is no evidence of a central canal spinal stenosis, or neural foraminal stenosis, in the lumbar region. No disc herniation is identified in the lumbar region. There is no mass lesion or enhancing lesion seen in the region surveyed. IMPRESSION: Negative lumbosacral spine MRI.
--- NOTE | 2021-07-09 | DI.MRI_ITS ---
Exam(s) MR THORACIC SPINE WO/W EXAM: MR THORACIC SPINE WO/W CLINICAL HISTORY: pain AML. TECHNIQUE: Multiplanar multisequence MRI was performed. COMPARISON: No exams were available for comparison FINDINGS: MR examination of thoracic spine was performed according to the usual protocol with additional pre an d post contrast T1 fat sat imaging. No significant bony signal abnormality seen. There is high sign al focus in superior endplate of what appears to be T5 vertebral body consistent with a small fatty r est or hemangioma. Spinal canal is of dimensions period no neural foraminal narrowing seen. No mass lesion or enhancing lesion. Spinal cord is of normal diameter and shows normal signal throughout. IMPRESSION: Negative thoracic spine MRI including post contrast imaging. No evidence of metastatic disease. DATA REPOSITORY:
[2021-07-09] MEDS: Ketorolac 15 MG/ML VIAL IVP ×3 (05:00→22:59)
[2021-07-09 05:05] VITALS: BP 165/94; PULSE 99; RESP 24; TEMP 37.3; O2SAT 98
[2021-07-09] MEDS: HYDROmorphone 2 MG/ML VIAL 0.5 MG IVP ×4 (05:36→20:02)
[2021-07-09 05:48] VITALS: BP 145/88
[2021-07-09 07:40] VITALS: BP 153/88; PULSE 102; RESP 18; TEMP 36.6; O2SAT 96
[2021-07-09] MEDS: Fidaxomicin 200 MG TAB PO ×2 (08:27→20:03)
[2021-07-09] MEDS: Metoprolol 12.5 MG TAB PO ×2 (08:27→20:02)
--- NOTE | 2021-07-09 08:27 | PDOC.CMPRO ---
- If Service Date Differs Date of service: 07/09/21 Time of Service: 08:27 Care Management Progress Note S/O: A: Herber is a 60 year old man admitted on 07/07/21 with diplopia and back pain P:Herber will likely de discharged with no new services. He will follow up with his community providers and plan of care and transport with friends/family. CM will continue to support Herber and his discharge planning needs.
[2021-07-09] MEDS: Famotidine 20 MG TAB PO ×2 (08:28→20:01)
[2021-07-09] MEDS: Tamsulosin 0.4 MG CAPCR PO (08:28)
[2021-07-09] MEDS: Acetaminophen 325 MG TAB 650 MG PO ×4 (08:28→20:02)
[2021-07-09] MEDS: LORazepam 2 MG/ML VIAL 0.5 MG IVP (09:31)
[2021-07-09] MEDS: Normal Saline Flush 10 ML SYR IVP (10:56)
[2021-07-09] MEDS: Gadoterate meglumine 20 ML VIAL IVP (10:56)
[2021-07-09] MEDS: Lidocaine 5% Patch 2 PATCH TP (11:30)
--- NOTE | 2021-07-09 12:54 | W.PM.DS.N ---
Date of service: 07/10/21 Time of Service: 12:54 DS: Diagnosis Discharge Diagnosis (1) Diplopia: Status: Acute (2) Leukemia: Status: Chronic (3) Back pain: Status: Acute Discharge Plan Disposition Condition: Stable Discharge Details Reason For Visit: Diplopia, Back Pain Admit Date/Time: 07/09/21 14:00 Admit Provider: Graham Betancourt Attending Provider: Graham Betancourt Primary Care Provider: Beatriz Maurice Hospital Course Hospital Course: Herber is a 60-year-old man with multiple comorbidities including atrial fibrillation colostomy from recurrent C. difficile and most recently diagnosed leukemia (AML). He did have a bone marrow biopsy on his right hip recently. He has been having some pain near this site. presented to the ED for c/o diplopia and back pain. His initiate CVA work up in the ED did not show evidence of acute CVA, he received IV narcotics for back pain and admitted to med/surg for further stroke work up and neurology consultation. He was placed on apap, lidocaine patch and toradol with significant improvement in back pain. MRI brain shows no acute CVA, MRI thoracic and lumbar spine shows no acute findings to explain his back pain, no abscess or evidence of metastatic disease. it was noted on lab work that he had blasts. Case was discussed with DR Mohamud Pinto who has accepted him in transfer to [facility] for blast crisis. He is also positive for cdiff and was having diarrhea. bed was not available until today, his white count today up to 46 from 20, flow cytometry sent and pending. discussed with Dr Parra Home Meds and New Rx's Prescriptions: New Dificid 200 mg Tablet 200 mg PO BID Qty: 17 RF: 0 Continued flecainide 50 MG tablet 50 mg PO BID RF: 0 tamsulosin 0.4 mg capsule 0.4 mg PO DAILY AM RF: 0 famotidine 20 mg tablet 20 mg PO BID RF: 0 metoprolol tartrate 25 mg tablet 12.5 mg PO BID RF: 0 Discharge Instructions Stand Alone Forms: Nursing Discharge Form Activity:: Activity as Tolerated Equipment/Supplies:: No Equipment Needed Diet:: NPO for transport DS: Summary Time Spent with Patient providing and/or coordinating discharge services: Greater than 30 minutes Status at Discharge Functional status at discharge: independent ambulation Overall status at discharge: patient is not back to baseline Mental Status: mental status grossly normal Speech and Movement: speech and movement normal Mood: congruent mood Affect: normal affect Exam Const General: cooperative, comfortable, no acute distress, frail appearing and ill appearing Nutritional Appearance: average body habitus Orientation: alert, awake and oriented x3 HENMT Head: normal to inspection, normocephalic and atraumatic Resp Effort & Inspection: normal respiratory effort Auscultation: clear to auscultation bilaterally Cardio Rate: regular rate Rhythm: regular rhythm GI Inspection: normal to inspection Palpation: soft Auscultation: normal bowel sounds Skin General skin exam: no rashes or lesions noted Neuro General: patient alert and patient awake Psych Mental Status: mental status grossly normal Speech and Movement: speech and movement normal Mood: congruent mood Affect: normal affect DS: Data Vitals/I&O Vitals and I&O: Vital Signs Temperature 36.6 C 07/09/21 07:40 Temperature Source Tympanic 07/09/21 07:40 Pulse 102 H 07/09/21 07:40 Pulse Rhythm Regular 07/09/21 08:41 Pulse 97 H 07/07/21 21:40 Respiratory Rate 18 07/09/21 07:40 Respiratory Effort Non-Labored 07/09/21 05:40 Respiratory Depth Normal 07/09/21 08:41 Respiratory Pattern Normal 07/09/21 08:41 Blood Pressure 153/88 H 07/09/21 07:40 Blood Pressure Mean 81 07/07/21 21:30 Blood Pressure Position Supine 07/07/21 18:31 Pulse Oximetry 96 07/09/21 07:40 Oxygen Delivery Method Room Air 07/09/21 07:40 Oxygen Flow Rate 0 07/09/21 07:40 Pain Level 2 07/09/21 11:30 Comment 07/09/21 05:48 Intake & Output 07/08/21 07/09/21 07/09/21 23:59 11:59 23:59 Intake Total 493.5 / 3403.5 240 / 240 Output Total 1375 / 3275 1300 / 1300 Balance -881.5 / 128.5 -1060 / -1060 Intake: IV 493.5 / 2923.5 Oral 240 / 240 Output: Urine 875 / 2625 850 / 850 Stool 500 / 650 450 / 450 Other: Urine Color Pale Yellow Yellow Urine Appearance Clear Clear Urine Odor None None Stool Size Small Stool Characteristics Soft Brown Voiding Methods Urinal Urinal [facility] Active Problem List Leukemia (Chronic) BPH (benign prostatic hyperplasia) (Chronic) Recurrent Clostridioides difficile diarrhea (Acute) Diplopia (Acute) Hypomagnesemia (Acute) Binocular vision disorder with diplopia (Acute) Back pain (Acute) Atrial fibrillation (Active 12/04/12) History of surgery (Active) Gastroesophageal reflux disease (Active) Hx of colonic polyps (Acute) Anemia (Chronic) Leukocytosis (Acute) Medical History GERD (gastroesophageal reflux disease) History of colon polyps Paroxysmal atrial fibrillation Surgical History Colonoscopy - IV Sedation Repair, Tendon or Muscle achilles Tonsillectomy and adenoidectomy Social History Smoking/Tobacco Use Status: Never Smoking risk assessment performed?: Yes Alcohol Intake: current Alcohol Intake frequency: holidays/special occasions only Drug use: Never Do you feel safe at home: Yes Do you feel safe in your relationship?: Yes
--- NOTE | 2021-07-09 15:02 | CHAPLAIN ---
Herber is being treated for leukemia at [facility] and came into the ED with double vision and back pain. He was sitting at the edge of his bed when I visited. He seemed anxious, not relaxed. He told me he is being transferred to [facility] later today. Someone was in the room with him, but because of having to wear a gown, I couldn't tell if it was a medical staff person or family. Herber said he's been in touch with family by phone. He thanked me for stopping in, but did not seem interested in a longer conversation.
--- NOTE | 2021-07-09 16:02 | CMDISCH_ITS ---
- If Service Date Differs Date of service: 07/09/21 Time of Service: 16:02 LACE Index Scoring Tool - Questions: Length of Stay (in days): 2 Acuity (Admit via E.D.?): Yes Comorbidities: Any Tumor E.D. Visits: 2 - Answers: Total Score: 9 Risk of Readmission: Low Risk Care Management Discharge Reason for Hospitalization: Diplopia and back pain Discharge Plan: Herber will be transferred to [facility] later today. He will follow up with their providers and plan of care and transport via ambulance coordinated by nursing tapper supervisor. Patient/Family Education Needs: Review of discharge instructions including medications, activity, limitations and follow up plan, discuss Ask Me Three as determined by [facility] providers.
[2021-07-09 17:55] VITALS: BP 143/91; PULSE 112; RESP 18; TEMP 37.5; O2SAT 98
[2021-07-09 20:06] VITALS: BP 135/85; PULSE 105; RESP 16; O2SAT 97
[2021-07-09] MEDS: Lidocaine Patch Removal 2 EACH TD (20:19)
[2021-07-09] MEDS: Zolpidem 5 MG TAB PO (22:59)
[2021-07-09 23:00] VITALS: BP 158/100; PULSE 99; RESP 18; TEMP 36.1; O2SAT 99
[2021-07-10] MEDS: HYDROmorphone 2 MG/ML VIAL 0.5 MG IVP ×4 (00:02→13:00)
[2021-07-10] MEDS: LORazepam 2 MG/ML VIAL 0.5 MG IVP ×4 (01:14→16:37)
[2021-07-10] MEDS: HYDROmorphone 2 MG/ML VIAL 1 MG IVP ×2 (01:15→16:35)
[2021-07-10] MEDS: Ketorolac 15 MG/ML VIAL IVP ×3 (05:31→16:01)
[2021-07-10] MEDS: Acetaminophen 325 MG TAB 650 MG PO ×3 (07:13→16:01)
[2021-07-10] MEDS: Fidaxomicin 200 MG TAB PO (07:13)
[2021-07-10] MEDS: Famotidine 20 MG TAB PO (07:14)
[2021-07-10] MEDS: Metoprolol 12.5 MG TAB PO (07:14)
[2021-07-10] MEDS: Tamsulosin 0.4 MG CAPCR PO (07:14)
[2021-07-10 07:24] LABS: HCT 26.2 % (40.0-50.0); HGB 8.8 g/dL (13.5-17.5); MCH 33.5 pg (27.0-33.0); MCHC 33.6 % (32.0-36.0); MCV 99.6 fL (80-95); MPV 10.1 fL (8.0-11.0); Nucleated RBC 0 %; Platelet Count 117 10^3/uL (130-400); RBC 2.63 10^6/uL (4.36-5.78); RDW 19.7 % (11.8-14.1); RDW-SD 70.9 fL
[2021-07-10 07:31] VITALS: BP 159/96; PULSE 108; RESP 18; TEMP 36.5; O2SAT 97
[2021-07-10 07:34] LABS: WBC 46.01 10^3/uL (4.4-10.8)
[2021-07-10 07:39] LABS: Anion Gap 11.5 mmol/L (3-11); BUN 15 mg/dL (7-18); CO2 24.5 mmol/L (21.0-32.0); CREATININE 1.4 mg/dL (0.70-1.30); Calcium 9.6 mg/dL (8.5-10.1); Chloride 103 mmol/L (98-107); Estimated GFR 51.69 (mL/min/1.73m2); Glucose 102 mg/dL (74-106); Potassium 3.6 mmol/L (3.5-5.1); Sodium 139 mmol/L (136-145)
[2021-07-10 07:45] LABS: Absolute Eosinophil Count 0.92 10^3/uL (0.0-0.7); Absolute Lymphocyte Count 15.64 10^3/uL (1.2-3.4); Absolute Monocyte Count 9.66 10^3/uL (0.1-0.8); Absolute Neutrophil Count 19.78 10^3/uL (1.2-6.7); Bands % 7
[2021-07-10 07:46] LABS: Diff Comment Manual Differential; RBC Morphology Normal
[2021-07-10] MEDS: Lidocaine 5% Patch 2 PATCH TP (08:16)
--- NOTE | 2021-07-10 10:40 | W.PM.PROGNOT ---
Date of Service Date of service: 07/09/21 Time of Service: 12:00 Assessment and Plan Assessment and plan (1) Diplopia: Status: Acute Assessment and plan: MRI shows no acute findings. concerning for symptoms of blast crisis. awaiting [facility] [place] transfer (2) Leukemia: Status: Chronic Assessment and plan: followed at [facility] [place]. with blast cells, awaiting transfer to [facility] [place] accepted by Dr Mohamud Pinto (3) Back pain: Status: Acute Assessment and plan: continue pain management MRI lumbar spine and thoracic spine: FINDINGS: No significant bony signal abnormality is seen. Intervertebral discs show normal signal. There is minimal facet arthropathy consistent with the patient's age.. The conus medullaris appears intact. There is no evidence of a central canal spinal stenosis, or neural foraminal stenosis, in the lumbar region. No disc herniation is identified in the lumbar region. There is no mass lesion or enhancing lesion seen in the region surveyed. IMPRESSION: Negative lumbosacral spine MRI. FINDINGS: MR examination of thoracic spine was performed according to the usual protocol with additional pre and post contrast T1 fat sat imaging. No significant bony signal abnormality seen. There is high signal focus in superior endplate of what appears to be T5 vertebral body consistent with a small fatty rest or hemangioma. Spinal canal is of dimensions period no neural foraminal narrowing seen. No mass lesion or enhancing lesion. Spinal cord is of normal diameter and shows normal signal throughout. IMPRESSION: Negative thoracic spine MRI including post contrast imaging. No evidence of metastatic disease. discussed with Dr Parra. Subjective Subjective Patient reports: still having pain, tolerating liquids well, tolerating a regular diet and afebrile; denies shortness of breath Exam Const General: cooperative, comfortable, no acute distress, frail appearing and ill appearing Nutritional Appearance: average body habitus Orientation: alert, awake and oriented x3 HENMT Head: normal to inspection, normocephalic and atraumatic Resp Effort & Inspection: normal respiratory effort Auscultation: clear to auscultation bilaterally Cardio Rate: regular rate Rhythm: regular rhythm GI Inspection: normal to inspection Palpation: soft Auscultation: normal bowel sounds Back/Spine/Pelvis Cervical Spine: normal cervical lordosis Thoracic/Lumbar Spine: thoracic and lumbar spine normal to inspection Skin General skin exam: no rashes or lesions noted Neuro General: patient alert and patient awake Objective Last Vital Signs Temp 36.5 C 07/10/21 07:31 Pulse 108 H 07/10/21 07:31 Resp 18 07/10/21 07:31 BP 159/96 H 07/10/21 07:31 Pulse Ox 97 07/10/21 07:31 Laboratory Results - last 24 hr 07/10/21 07/10/21 06:48 06:48 WBC 46.01 H* RBC 2.63 L Hgb 8.8 L Hct 26.2 L MCV 99.6 H MCH 33.5 H MCHC 33.6 RDW 19.7 H Plt Count 117 L MPV 10.1 Immature Gran % 0.0 Neutrophils % 36.0 Band Neutrophils % 7 Lymphocytes % 34.0 Monocytes % 21.0 Eosinophils % 2.0 Basophils % 0.0 Nucleated RBC % 0 Absolute Neutrophils 19.78 H Absolute Lymphocytes 15.64 H Absolute Monocytes 9.66 H Absolute Eosinophils 0.92 H Absolute Basophils 0.00 RBC Morphology Normal Sodium 139 Potassium 3.6 Chloride 103 Carbon Dioxide 24.5 Anion Gap 11.5 H BUN 15 D Creatinine 1.4 H Estimated GFR/1.73 m2 51.69 Glucose 102 Calcium 9.6
[2021-07-10 16:21] VITALS: TEMP 37.6
[2021-07-16 11:36] LABS: Leukemia/Lymphoma by FC (Blood See Comments
== END 2021-07-10 16:53 | disposition short-term general hospital (02) | DRG 123 ==
LOC: ER 07-08 → MS 07-08 01:03
PROVIDERS: Family Medicine; Nurse Practitioner Acute Care; Admitting Provider General Practice; Emergency Provider Registered Nurse Emergency; PCP Physician Assistant Medical; Visit Provider General Practice
DX: H53.2 Diplopia (principal); C92.00 Acute myeloblastic leukemia, not having achieved remission; A04.71 Enterocolitis due to Clostridium difficile, recurrent; I48.0 Paroxysmal atrial fibrillation; E83.42 Hypomagnesemia; Z79.899 Other long term (current) drug therapy; K21.9 Gastro-esophageal reflux disease without esophagitis; Z93.3 Colostomy status; M54.9 Dorsalgia, unspecified; G89.18 Other acute postprocedural pain; M54.50 Low back pain, unspecified; N40.0 Benign prostatic hyperplasia without lower urinary tract symptoms; Z20.822 Contact with and (suspected) exposure to COVID-19
CPT/HCPCS: 36415; 36416; 70496; 70498; 70553; 72158; 80048; 80053; 82962; 87493; 87635; 88185; 93005; 96361; 96365; 96366; 96375; 99285; 72128; 72131; 72157; 81003; 83735; 84484; 85025; 88184; 88189; 93010; 99219; 99225; 99239; G0378; J1885; J2060; J2270; J2405; J3360; J3490

== ENCOUNTER 2021-09-24 01:01 | Outpatient (CLI) | payer OTHER, SELFPAY ==
--- NOTE | 2021-09-24 13:57 | DI.US_ITS ---
APPROVED REPORT EXAM: Comprehensive 2D, Doppler, and color-flow Echocardiogram Patient Location: Out-Patient Emergency Communications Officer: Sherine Akhtar RDCS (AE) Indications: stem cell candidate,Leukemia Other Information Study Quality: Adequate Conclusion Normal left ventricular wall thickness and chamber size. Estimated ejection fraction is 55 to 60%. Wall motion is normal Normal right ventricular size and systolic function Both atria are normal in size Trileaflet aortic valve with trace regurgitation Normal mitral valve, trace mitral regurgitation Normal tricuspid valve, mild regurgitation. Estimated right ventricular systolic pressure is 32 mmHg Mildly dilated ascending aorta measuring 3.86 cm Wall motion Left Ventricle The left ventricle is normal size. The left ventricular systolic function is normal. The left ventric ular ejection fraction is within the normal range. There is normal left ventricular wall thickness. T here is normal LV segmental wall motion. There is no ventricular septal defect visualized. LVEF is 56 %. Right Ventricle The right ventricle is normal size. The right ventricular systolic function is normal. The RVSP is 32 .2mmHg. Atria The left atrium size is normal. The right atrium size is normal. The interatrial septum is intact wit h no evidence for an atrial septal defect. Aortic Valve The aortic valve is normal in structure. There is no aortic valvular stenosis. Trace aortic regurgita tion. Mitral Valve The mitral valve is normal in structure. No evidence of mitral valve stenosis. Trace mitral regurgita tion. Tricuspid Valve The tricuspid valve is normal in structure. There is no tricuspid valve stenosis. Mild tricuspid regu rgitation. Pulmonic Valve The pulmonary valve is normal in structure. There is no pulmonic valvular stenosis. There is no pulmo bushra valvular regurgitation. Great Vessels The aortic root is normal in size. The ascending aorta is mildly dilated.3.86 cm Ascending aorta is n ot well visualized. The IVC collapses <50% with inspiration. Pericardium There is no pericardial effusion. 2D Dimensions IVSD d PLAX 1.08 cm M: 0.6-1.2 LV Vol A2C d MOD 131.3 mL LVPW d PLAX 1.07 cm M: 0.6 - 1.2 LV Vol A4C d MOD 134.8 mL LVID d PLAX 5.05 cm M: 4.2 - 5.8 LA vol/ BSA A2C s A-L 23.8 mL/m2 LVDs 3.55 cm M: 2.5 - 4.0 LA vol/ BSA A4C s A-L 20.1 mL/m2 Ao Root d 3.50 cm M: 3.1 - 3.7 LA Vol/ BSA Biplane s A-L 21.9 mL/m2 RA Area A4C 15.93 cm2 LA Area A4C s MOD 17.42 cm2 RA Vol/ BSA A4C s A-L 18.4 mL/m2 LA Area A2C s MOD 19.04 cm2 Ao Asc Diam d 3.86 cm M: 2.6 - 3.4 LV EF A4C MOD 55.0 % LV EF Teichholz 56.1 % LV EF A2C MOD 56.4 % LVEF (Tony's) 56.06 % M: 52 - 72 LV EF Biplane MOD 56.1 % LV Volume 98.17 mL M: 62 - 150 SV 76.50 mL LV Volume Index 43.05 mL/m2 M: 34 - 74 SV Index 33.57 mL/m2 LV Vol Biplane MOD 136.5 mL FS 29.45 % M-Mode TAPSE 2.21 cm (M/F) >1.7 LV Diastology MV E' medial 0.062 (>0.07 m/s) E/A Ratio 0.8 LV E/e MED 9.70 (<14) MV E Vmax 0.60 (0.4-1.3 m/s) MV E' lateral 0.101 (>0.1 m/s) MV A Vmax 0.75 (0.4-1.3 m/s) LV E/e LAT 5.90 (<14) MV E/A Ratio 0.77 MV E/E' medial 9.72 MV E/E' lateral 5.95 Aortic Valve LVOT Area 3.25 cm2 AoV Area Vmax 3.19 cm2 LVOT Vmax 1.38 m/s AoV Area/ BSA (Vmax) 1.40 cm2/m2 LVOT Mean Sergio. 0.83 m/s CATHRYN Mean Sergio. 2.80 cm2 LVOT Peak Grad 7.6 mmHg CATHRYN Mean Sergio. Index 1.23 cm2/m2 LVOT Mean Grad 3.4 mmHg AR DT 2127 msec LVOT VTI 0.239 m AR PHT 617 msec LVOT Diam s 2.00 cm AoV Vmax 1.40 m/s Velocity Ratio 0.98 AoV Mean Sergio. 0.97 m/s AoV Peak Grad 7.9 mmHg LVOT SV 77.60 mL AoV Mean Grad 4.3 mmHg AoV VTI 0.240 m AoV Area VTI 3.23 cm2 AoV Area/ BSA (VTI) 1.42 cm/m2 Mitral Valve MV DT 247 (160-240 msec) MV PHT 72 msec MV Area PHT 3.07 cm2 MV VTI 0.220 m MV Area VTI 3.52 (4.0-6.0 cm2) Pulmonary Valve PV Vmax 1.19 (0.5-1.5 m/s) RVOT Peak Gr. 2.75 mmHg PV Peak Grad 5.7 mmHg RVOT Mean Gr. 1.25 mmHg PV Mean Grad 2.9 mmHg RVOT VTI 0.137 m PV VTI 0.196 m RVOT Vmax 0.83 m/s Tricuspid Valve TR Peak Grad 24.1 mmHg TR Vmax 2.46 m/s RA Pressure 8.00 mmHg RVSP (TR) 32.2 mmHg
== END 2021-09-24 01:21 ==
PROVIDERS: PCP Physician Assistant Medical; Visit Provider Nurse Practitioner
DX: C95.01 Acute leukemia of unspecified cell type, in remission (principal); Z76.82 Awaiting organ transplant status; I77.810 Thoracic aortic ectasia; I36.1 Nonrheumatic tricuspid (valve) insufficiency
CPT/HCPCS: 93306

== ENCOUNTER 2021-09-24 02:23 | Outpatient (CLI) | payer OTHER, SELFPAY ==
--- NOTE | 2021-09-24 13:15 | RT.EKG_ITS ---
APPROVED REPORT Exam: Resting ECG Reason for Exam: Z76.82, C95.01 Patient Location: O HR:81 bpm ECG Measurements Heart Rate 81 AXIS [place] 140 P 53 QRSd 90 QRS 38 QT 384 T 24 QTc 445 Conclusion Sinus rhythm...normal P axis, V-rate 60- 99 Normal Electrocardiogram
== END 2021-09-24 02:24 | disposition home or self-care (01) ==
LOC: RT 02:23
PROVIDERS: PCP Physician Assistant Medical; Visit Provider Nurse Practitioner
DX: C95.01 Acute leukemia of unspecified cell type, in remission (principal); Z76.82 Awaiting organ transplant status
CPT/HCPCS: 93005; 93010

== ENCOUNTER 2021-11-28 02:31 | Outpatient (CLI) | payer OTHER, SELFPAY | END 2021-11-28 02:32 | disposition home or self-care (01) | LOC: LBO 02:31 | PROVIDERS: PCP Physician Assistant Medical; Visit Provider Internal Medicine ==

== ENCOUNTER 2021-11-29 10:37 | Outpatient (REF) | payer OTHER, SELFPAY ==
[2021-11-29 09:56] LABS: Abs Immature Grans 0.09 10^3/uL (0.0-0.06); Absolute Basophil Count 0.09 10^3/uL (0.0-0.2); Absolute Eosinophil Count 0.96 10^3/uL (0.0-0.7); Absolute Lymphocyte Count 0.72 10^3/uL (1.2-3.4); Absolute Monocyte Count 1.12 10^3/uL (0.1-0.8); Basophils % 1.2; Eosinophils % 12.5; HCT 22.5 % (40.0-50.0); HGB 7.6 g/dL (13.5-17.5); Immature Grans % 1.2; Lymphocytes % 9.4; MCH 31.7 pg (27.0-33.0); MCHC 33.8 % (32.0-36.0); MCV 93.8 fL (80-95); Monocytes % 14.6; Neutrophils % 61.1; Nucleated RBC 0.5 % (0.0-0.3); RDW 19.1 % (11.8-14.1); RDW-SD 55.8 fL; WBC 7.68 10^3/uL (4.4-10.8)
[2021-11-29 10:03] LABS: Anion Gap 11.5 mmol/L (3-11); BUN 34 mg/dL (7-18); CO2 20.5 mmol/L (21.0-32.0); CREATININE 3.1 mg/dL (0.70-1.30); Chloride 103 mmol/L (98-107); Estimated GFR 20.59 (mL/min/1.73m2); Glucose 115 mg/dL (74-106); Potassium 4.8 mmol/L (3.5-5.1); Sodium 135 mmol/L (136-145)
[2021-11-29 10:18] LABS: Platelet Count 50 10^3/uL (130-400)
[2021-11-29 10:19] LABS: Anisocytosis 2+
== END 2021-11-29 10:38 | disposition home or self-care (01) ==
LOC: LBN 10:37
PROVIDERS: PCP Physician Assistant Medical; Visit Provider Internal Medicine
DX: Z94.81 Bone marrow transplant status (principal); C92.01 Acute myeloblastic leukemia, in remission; N17.9 Acute kidney failure, unspecified; E83.42 Hypomagnesemia
CPT/HCPCS: 80048; 83735; 85025

== ENCOUNTER 2021-12-12 02:33 | Outpatient (RCR) | payer OTHER, SELFPAY ==
[2021-12-05] MEDS: Normal Saline Flush 10 ML SYR IVP (13:07)
[2021-12-05 13:35] LABS: ALT 45 U/L (16-63); AST 36 U/L (15-37); Albumin 3.1 g/dL (3.4-5.0); Alkaline Phosphatase 548 U/L (46-116); BUN 29 mg/dL (7-18); Bilirubin, Total 0.6 mg/dL (0.2-1.0); CREATININE 2.9 mg/dL (0.70-1.30); Calcium 9.2 mg/dL (8.5-10.1); Chloride 102 mmol/L (98-107); Estimated GFR 22.23 (mL/min/1.73m2); Glucose 103 mg/dL (74-106); Magnesium 1.7 mg/dL (1.8-2.4); Potassium 4.8 mmol/L (3.5-5.1); Sodium 134 mmol/L (136-145); Total Protein 7.4 g/dL (6.4-8.2)
[2021-12-12] MEDS: Normal Saline Flush 10 ML SYR IVP (13:33)
[2021-12-12 14:05] LABS: ALT 30 U/L (16-63); AST 21 U/L (15-37); Albumin 3.7 g/dL (3.4-5.0); Alkaline Phosphatase 342 U/L (46-116); Anion Gap 12.8 mmol/L (3-11); BUN 44 mg/dL (7-18); Bilirubin, Total 0.5 mg/dL (0.2-1.0); CO2 20.2 mmol/L (21.0-32.0); CREATININE 3.2 mg/dL (0.70-1.30); Calcium 9.7 mg/dL (8.5-10.1); Chloride 103 mmol/L (98-107); Estimated GFR 19.85 (mL/min/1.73m2); Glucose 108 mg/dL (74-106); Magnesium 2.3 mg/dL (1.8-2.4); Potassium 5.1 mmol/L (3.5-5.1); Sodium 136 mmol/L (136-145); Total Protein 7.9 g/dL (6.4-8.2)
[2021-12-12 15:11] LABS: Magnesium 1.6 mg/dL (1.8-2.4)
== END 2021-12-14 23:59 | disposition home or self-care (01) ==
LOC: INF 02:33
PROVIDERS: Internal Medicine; PCP Physician Assistant Medical; Visit Provider Nurse Practitioner
DX: E83.42 Hypomagnesemia (principal); N17.9 Acute kidney failure, unspecified; Z86.19 Personal history of other infectious and parasitic diseases; Z93.3 Colostomy status; C95.01 Acute leukemia of unspecified cell type, in remission; D63.0 Anemia in neoplastic disease; R53.1 Weakness; Z94.81 Bone marrow transplant status; E86.0 Dehydration
CPT/HCPCS: 36591; 80053; 83735

== ENCOUNTER 2021-12-12 23:12 | Outpatient (REF) | payer OTHER, SELFPAY | END 2021-12-12 23:13 | disposition home or self-care (01) | LOC: LBN 23:12 | PROVIDERS: PCP Physician Assistant Medical; Visit Provider Internal Medicine ==

== ENCOUNTER 2021-12-29 21:39 | Inpatient (IN) | payer MEDICAID, SELFPAY ==
[2021-12-29] VITALS (51 sets, daily range): BP systolic 114–135; BP diastolic 77–94; PULSE 80–93; RESP 16–37; TEMP 36.4; O2SAT 95–99
--- NOTE | 2021-12-29 21:30 | RT.EKG_ITS ---
APPROVED REPORT Exam: Resting ECG Reason for Exam: [facility] Patient Location: E HR:88 bpm ECG Measurements Heart Rate 88 AXIS DC 132 P 65 QRSd 90 QRS 48 QT 397 T 65 QTc 481 Conclusion Sinus rhythm...normal P axis, V-rate 60- 99 Low voltage, extremity leads...all extremity leads <0.5mV Physician: Sinus rhythm, rate 88, no significant ST elevations or depressions. No STEMI.
--- NOTE | 2021-12-29 21:45 | DI.CT_ITS ---
Exam(s) CT CHEST/ABD/PEL WO EXAM: CT CHEST/ABD/PEL WO CLINICAL HISTORY: confusion, abdominal tenderness, hx toxic megacolo TECHNIQUE: Imaging Protocol: Axial computed tomography images with coronal and sagittal reformatted images were created and reviewed CONTRAST MATERIAL: Imaging Protocol: Axial computed tomography images with coronal and sagittal refo rmatted images were created and reviewed. COMPARISON: CT CT BRAIN NECK CTA from 07/07/2021 FINDINGS: The examination is limited due to patient motion artifact. CHEST: Tracheobronchial tree: Patent where visualized. Pulmonary parenchyma: No consolidation or dominant measurable mass. No architectural distortion. Mediastinum and Leena: No dominant adenopathy or fluid collection. The esophagus is unremarkable. Thyroid gland: Unremarkable. Pleura: No effusion or pneumothorax. Heart: The heart is not dilated. Coronary artery calcifications are present. No pericardial effusion . Aorta: Thoracic aorta non-dilated. Atherosclerosis. Lymph nodes: Within normal limits. Bones:Within normal limits for the patient's age. Tubes, Catheters, and Lines: The tip of the patient's indwelling central venous catheter is in good p osition at the cavoatrial junction. Soft tissues: Unremarkable. ABDOMEN: Liver: Normal density. No suspicious masses are seen. Gallbladder and Biliary Tract: No radiodense calculus or dilation. Pancreas: Normal density, no abnormal calcifications or inflammatory process. Spleen: Normal. Adrenals: No masses seen. Kidneys: Normal size, contour and axis. No radiodense stones or obstructive uropathy. No masses seen. There is a duplicated left renal collecting system. Abdominal Aorta: Abdominal portion non-dilated. Atherosclerosis. Bowel: Status post colectomy with a right lower quadrant ostomy. No bowel wall thickening or obstruc tion. Peritoneal Cavity: No ascites, collection or mesenteric inflammatory response. No free air. Lymph Nodes: Within normal limits. Bones: Within normal limits for the patient's age. Soft Tissues: Unremarkable. PELVIS: Bladder: Symmetric distention, no gross wall thickening. Reproductive Organs: Enlarged prostate gland. Lymph Nodes: Within normal limits. Bones: Within normal limits. IMPRESSION: No acute chest, abdominal or pelvic process. RADIATION DOSE DELIVERED: 1,953.76mGy.cm Total DLP 1,953.76mGy.cm Total DLP DATA REPOSITORY: All CT scans at this facility are submitted to the National Radiology Data Registry (NRDR) Dose Index Registry (DIR) with the [employer] ([employer]). RADIATION OPTIMIZATION: All CT scans at this facility use at least one of these dose optimization te chniques: automated exposure control; mA and/or kV adjustment per patient size (includes targeted exa ms where dose is matched to clinical indication); or iterative reconstruction.
--- NOTE | 2021-12-29 21:45 | DI.CT_ITS ---
Exam(s) CT HEAD WO EXAM: CT HEAD WO CLINICAL HISTORY: confused, hx of leukemia. TECHNIQUE: Imaging Protocol: Axial computed tomography images with coronal and sagittal reformatted images were created and reviewed COMPARISON: CT CT BRAIN NECK CTA from 07/07/2021 FINDINGS: Ventricles and Extra axial spaces: Normal in size and morphology for the patient's age. Hemorrhage: None. Cerebral parenchyma: Normal. Midline shift: None. Brainstem/Cerebellum: Normal. Calvarium: Normal. Visualized Paranasal sinuses/Mastoids: Clear. Soft Tissues: Unremarkable. IMPRESSION: No acute intracranial process. RADIATION DOSE DELIVERED: 826.78mGy.cm Total DLP DATA REPOSITORY: All CT scans at this facility are submitted to the National Radiology Data Registry (NRDR) Dose Index Registry (DIR) with the [employer] ([employer]). RADIATION OPTIMIZATION: All CT scans at this facility use at least one of these dose optimization te chniques: automated exposure control; mA and/or kV adjustment per patient size (includes targeted exa ms where dose is matched to clinical indication); or iterative reconstruction.
--- NOTE | 2021-12-29 21:49 | W.ED.GENAD ---
Discharge Plan Disposition Patient Disposition: [facility] INPATIENT Condition: Stable Discharge Details Chief Complaint: AMS/LOC Clinical Impression: Acute confusion, Acute dehydration, Acute kidney injury Primary Care Provider: Beatriz Maurice ED Provider: Carlos Kim Home Meds and New Rx's Prescriptions: No Action flecainide 50 MG tablet 50 mg PO BID tamsulosin 0.4 mg capsule 0.4 mg PO DAILY AM Label Comments: TAKE 1 CAPSULE BY MOUTH EVERY NIGHT DIRECTED famotidine 20 mg tablet 20 mg PO BID Label Comments: Take 2 tablet by mouth once a day metoprolol tartrate 25 mg tablet 12.5 mg PO BID Label Comments: TAKE 1/2 TABLET BY MOUTH EVERY 6 HOURS Dificid 200 mg Tablet 200 mg PO BID Qty: 17 0RF Medical Decision Making This is a 61-year-old male with a past medical history of atrial fibrillation, clot colostomy with recurrent C. 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 He has had a lesion on his tongue, and this has been causing him pain. He has been refusing to take medications, eat, or drink for the last 3 days. He has his girlfriend at home, as well as his neighbor/best friend who is his guardian and medical power of senior trial attorney. Over the last 3 days the patient has become more confused, altered with his decreased p.o. intake. He has not taken any of his pills as needed. The patient's best friend is here at bedside, and he states that this is what he was like last time he was admitted to [facility]. Patient is full code per the friend, and they have discussed a rehab facility in the past and they are thinking that this is the direction that things will be going shortly. No other complaints at this time. Ostomy output has been normal. No known fevers or other complaints otherwise per best friend. Exam demonstrates mild abdominal tenderness. Clear lungs. Slightly altered mental status. No nuchal rigidity or meningeal signs. Differential includes colitis, pneumonia, viral etiology, and dehydration/STACIE as a cause of his current symptoms. We will rehydrate, evaluate for these etiologies, monitor and reassess. Symptoms do not appear consistent with an acute stroke, but there may be a component of chronic ischemic disease that may also be adding to his symptoms. 12:30 AM Laboratory work-up is returned, no white count, hemoglobin is elevated suggesting potential for hemoconcentration. Platelets 80 which is slightly above baseline. Lactate elevated at 3.2. PCO2 is not elevated. Electrolytes stable, creatinine high at 3.3, BUN 51, concern for dehydration. Anion gap 15.9. Troponin normal, lipase normal, COVID negative, influenza negative, RSV negative. Patient has not yet urinated. Patient has been given a liter fluid bolus. Vital signs stable. This time I do feel that the patient has dehydration causing his confusion, and an acute kidney injury likely secondary to this. CT head chest abdomen pelvis negative for acute process per virtual radiology. Discussed the case with Dr. Betancourt, he agrees with assessment plan. Patient will be admitted for hydration continued monitoring. I have extensively reviewed the treatment plan with the patient. I have addressed all patient concerns at this time. I have also discussed the plan with the admitting physician and they agree with the current assessment and plan and have agreed to assume responsibility for the patient. All parties demonstrate verbal understanding and agreement with our assessment and plan at this time. The documentation in this chart was dictated using [employer] dictation software. Please excuse any dictation errors. EKG 21: 50 Sinus rhythm, rate 88, no significant ST elevations or depressions. No STEMI. FINDINGS: Brain: There is no acute intracranial hemorrhage, mass effect or midline shift. No large acute territorial infarct identified. There are patchy regions of hypodensity in the periventricular and subcortical white matter, likely on the basis of chronic microvascular ischemic disease. Cerebral ventricles: No ventriculomegaly. Paranasal sinuses: Visualized sinuses are unremarkable. No fluid levels. Mastoid air cells: Visualized mastoid air cells are well aerated. Bones/joints: Unremarkable. No acute fracture. Soft tissues: Unremarkable. IMPRESSION: No acute intracranial hemorrhage, mass effect or midline shift. Thank you for allowing us to participate in the care of your patient. FINDINGS: Tubes, catheters and devices: Central line in the SVC. Lungs: No consolidation. No ground-glass opacity. No endobronchial lesion. Lung nodules: No suspicious pulmonary nodule. Pleural spaces: Minimal pleural thickening at the left lung base. No pleural effusion. No pneumothorax. Heart: No cardiomegaly. No pericardial effusion. Lymph nodes: No mediastinal, hilar or axillary adenopathy. Vasculature: Unremarkable. No aortic aneurysm. Intraperitoneal space: Visualized upper abdomen is unremarkable. Bones/joints: No significant bony or joint space abnormality Soft tissues: Extrathoracic soft tissues are unremarkable. IMPRESSION: No acute findings. No pneumonia FINDINGS: Lungs: Lung bases are unremarkable. Liver: Tiny right hepatic cyst. Gallbladder and bile ducts: No calcified stones. No definite gallbladder wall thickening or biliary dilatation. Pancreas: No mass or peripancreatic edema. Spleen: No splenomegaly. Adrenal glands: No adrenal nodule. Kidneys and ureters: No hydronephrosis. No renal or ureteral calculi. Stomach and bowel: Right lower ileostomy. Status post colectomy. Minimal stranding at the distal site of resection mid sigmoid may be postoperative. No small bowel dilatation. Appendix: No evidence of appendicitis. Intraperitoneal space: No free air or free fluid. Vasculature: No abdominal aortic aneurysm. Lymph nodes: No significant adenopathy. Urinary bladder: No bladder stone. No definite bladder wall thickening. Reproductive: Prostate is enlarged measuring 5.6 cm in transverse dimension. Bones/joints: No significant bony or joint space abnormality. Soft tissues: Extra-abdominal soft tissues are unremarkable. IMPRESSION: No acute intra-abdominal findings. Thank you for allowing us to participate in the care of your patient. Dictated and Authenticated by: Mikael Oliveira MD 12/30/2021 12:23 AM Eastern Time ([place] & Dev) HPI General Date/Time Provider Initiated Documentation: 12/29/21 21:49. HPI Narrative: This is a 61-year-old male with a past medical history of atrial fibrillation, clot colostomy with recurrent C. 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 He has had a lesion on his tongue, and this has been causing him pain. He has been refusing to take medications, eat, or drink for the last 3 days. He has his girlfriend at home, as well as his neighbor/best friend who is his guardian and medical power of senior trial attorney. Over the last 3 days the patient has become more confused, altered with his decreased p.o. intake. He has not taken any of his pills as needed. The patient's best friend is here at bedside, and he states that this is what he was like last time he was admitted to [facility]. Patient is full code per the friend, and they have discussed a rehab facility in the past and they are thinking that this is the direction that things will be going shortly. No other complaints at this time. Ostomy output has been normal. No known fevers or other complaints otherwise per best friend. Related Data Home Medications Medication Instructions Recorded Confirmed flecainide 50 mg tablet 50 mg PO BID 12/24/16 07/07/21 tamsulosin 0.4 mg capsule 0.4 mg PO DAILY AM 04/29/21 07/07/21 famotidine 20 mg tablet 20 mg PO BID 07/07/21 07/07/21 metoprolol tartrate 25 mg tablet 12.5 mg PO BID 07/07/21 07/07/21 fidaxomicin 200 mg tablet (Dificid) 200 mg PO BID #17 tabs 07/09/21 Previous Rx's Medication Instructions Recorded fidaxomicin 200 mg tablet (Dificid) 200 mg PO BID #17 tabs 07/09/21 Allergies Allergy/AdvReac Type Severity Reaction Status Date / Time metoprolol AdvReac skips in Unverified 12/29/21 21:50 heart rate all sugar substitutes AdvReac Uncoded 12/29/21 21:50 General DANE: 2 Review of Systems All systems reviewed & are unremarkable except as noted in HPI and below PFSH All Active Problems (Updated 12/30/21 @ 00:32 by Carlos Kim DO) Acute confusion (Acute) Acute dehydration (Acute) Acute kidney injury (Acute) Leukemia (Chronic) BPH (benign prostatic hyperplasia) (Chronic) Recurrent Clostridioides difficile diarrhea (Acute) Diplopia (Acute) Hypomagnesemia (Acute) Binocular vision disorder with diplopia (Acute) Back pain (Acute) Atrial fibrillation (Active 12/04/12) Hx of a fib in 2004 and 2008 wiht eletrical cardioversion. Echocardiogram 2009 showieng EF of 75%, mild LVH, no valvular abnormalities. Flecanide Rx. History of surgery (Active) Colonoscopy 07/06/2011 with tubular adenoma. S/P repair of Achilles tendon. S/P tonsillectomy and adenoidectomy. Gastroesophageal reflux disease (Active) Hx of colonic polyps (Acute) Anemia (Chronic) Leukocytosis (Acute) Medical History GERD (gastroesophageal reflux disease) History of colon polyps Palliative care patient Paroxysmal atrial fibrillation Surgical History Colonoscopy - IV Sedation Repair, Tendon or Muscle achilles Tonsillectomy and adenoidectomy Social History Smoking/Tobacco Use Status: Never Smoking risk assessment performed?: Yes Alcohol Intake: current Alcohol Intake frequency: holidays/special occasions only Drug use: Never Do you feel safe at home: Yes Do you feel safe in your relationship?: Yes Exam Narrative Exam Narrative: 1.Const: Thin. 2.Eyes: PERRL, no conjunctival injection, and symmetrical lids. 3.ENT: Atraumatic external nose and ears. Small lesion on the patient's tongue. Notably dry MM. Neck: Symmetric, trachea midline, No thyromegaly. 4.CVS: +S1/S2, No murmurs or gallops. Peripheral pulses 2+ and equal in all extremities. Brisk capillary refill in all extremities. 5.RESP: Unlabored respiratory effort. Clear to auscultation bilaterally. No wheezes rales or rhonchi 6.GI: Soft, nondistended, mild guarding on palpation. Ostomy site demonstrates pink ostomy. Some small bruising is present on the lower left abdomen which per best friend was present at time of discharge. 7.MSK: Normocephalic/Atraumatic, Extremities w/o deformity or ttp No cyanosis or clubbing, Normal movement of all extremities. Patient demonstrates good movement of cervical neck. There is no nuchal rigidity, no nuchal tenderness. Patient is able to flex the neck without any difficulty or significant pain. Negative Kernig's and Brudzinski sign. 8.Skin: Warm, Dry. No rashes or lesions. 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 Altered, able to move all extremities. Speech intact, but somewhat incoherent. 10.Psych: (AAO) x0.
[2021-12-29 22:50] LABS: BE (Venous) -7 mmol/L (-2-3); HCO3 (Venous) 17 mmol/L (23-28); O2 Sat (Venous) 68 %; TCO2 (Venous) 16 mmol/L (24-29); pCO2 (Venous) 24 mmHg (41-51); pH (Venous) 7.45 (7.31-7.41); pO2 (Venous) 35 mmHg
[2021-12-29 22:51] LABS: Abs Immature Grans 0.06 10^3/uL (0.0-0.06); Absolute Basophil Count 0.01 10^3/uL (0.0-0.2); Absolute Eosinophil Count 0.02 10^3/uL (0.0-0.7); Absolute Lymphocyte Count 0.93 10^3/uL (1.2-3.4); Absolute Monocyte Count 0.35 10^3/uL (0.1-0.8); Absolute Neutrophil Count 6.13 10^3/uL (1.2-6.7); Basophils % 0.1; Eosinophils % 0.3; HCT 30.6 % (40.0-50.0); HGB 10.4 g/dL (13.5-17.5); Immature Grans % 0.8; Lymphocytes % 12.4; MCH 33.4 pg (27.0-33.0); MCV 98 fL (80-95); MPV 11.9 fL (8.0-11.0); Monocytes % 4.7; Neutrophils % 81.7; RBC 3.11 10^6/uL (4.36-5.78); RDW 18.2 % (11.8-14.1); RDW-SD 64.9 fL
[2021-12-29] MEDS: Normal Saline 1,000 ML 1000 ML IV (22:53)
[2021-12-29 22:59] LABS: Lactate 3.2 mmol/L (0.6-1.4)
[2021-12-29 23:03] LABS: Diff Comment PLT Morph Reviewed; Platelet Count 80 10^3/uL (130-400)
[2021-12-29 23:06] LABS: Ammonia 20 umol/L (11-32)
[2021-12-29 23:12] LABS: ALT 22 U/L (16-63); AST 18 U/L (15-37); Albumin 3.9 g/dL (3.4-5.0); Alkaline Phosphatase 158 U/L (46-116); Anion Gap 15.9 mmol/L (3-11); BUN 51 mg/dL (7-18); Bilirubin, Total 0.8 mg/dL (0.2-1.0); CO2 17.1 mmol/L (21.0-32.0); CREATININE 3.3 mg/dL (0.70-1.30); Calcium 9.4 mg/dL (8.5-10.1); Chloride 106 mmol/L (98-107); Estimated GFR 19.15 (mL/min/1.73m2); Glucose 91 mg/dL (74-106); Lipase 199 U/L (73-393); Potassium 4.4 mmol/L (3.5-5.1); Sodium 139 mmol/L (136-145); Total Protein 7.3 g/dL (6.4-8.2); Troponin I < 50 ng/L (<or=60)
--- NOTE | 2021-12-29 23:35 | DI.VRAD_ITS ---
PROCEDURE INFORMATION: Exam: CT Head Without Contrast Exam date and time: 12/29/2021 10:10 PM Age: 61 years old Clinical indication: Alteration of consciousness; Other: Confusion; Patient HX: Confused, HX of leukemia TECHNIQUE: Imaging protocol: Computed tomography of the head without contrast. Radiation optimization: All CT scans at this facility use at least one of these dose optimization techniques: automated exposure control; mA and/or kV adjustment per patient size (includes targeted exams where dose is matched to clinical indication); or iterative reconstruction. COMPARISON: MR BRAIN WO/W 07/08/2021 12:17 PM FINDINGS: Brain: There is no acute intracranial hemorrhage, mass effect or midline shift. No large acute territorial infarct identified. There are patchy regions of hypodensity in the periventricular and subcortical white matter, likely on the basis of chronic microvascular ischemic disease. Cerebral ventricles: No ventriculomegaly. Paranasal sinuses: Visualized sinuses are unremarkable. No fluid levels. Mastoid air cells: Visualized mastoid air cells are well aerated. Bones/joints: Unremarkable. No acute fracture. Soft tissues: Unremarkable. IMPRESSION: No acute intracranial hemorrhage, mass effect or midline shift. Dictated and Authenticated by: Citlali Beck MD. Ordering:MILES Gonzalez MD
[2021-12-29] MEDS: Midazolam 5 MG/5 ML VIAL (23:36)
[2021-12-29 23:48] LABS: COVID-19 PCR Negative (Negative); Influenza A PCR Negative (Negative); Influenza B PCR Negative (Negative); RSV PCR Negative (Negative)
[2021-12-30] VITALS (7 sets, daily range): BP systolic 104–161; BP diastolic 56–95; PULSE 88–94; RESP 18–36; TEMP 36.6–37.9; O2SAT 98–100
--- NOTE | 2021-12-30 00:23 | DI.VRAD_ITS ---
PROCEDURE INFORMATION: Exam: CT Chest Without Contrast; Diagnostic Exam date and time: 12/29/2021 11:16 PM Age: 61 years old Clinical indication: Other: Confused, HX of leukemia; Patient HX: Abdominal tenderness, HX of toxic megacolon, HX of leukemia TECHNIQUE: Imaging protocol: Diagnostic computed tomography of the chest without contrast. Total images: 3435 Radiation optimization: All CT scans at this facility use at least one of these dose optimization techniques: automated exposure control; mA and/or kV adjustment per patient size (includes targeted exams where dose is matched to clinical indication); or iterative reconstruction. COMPARISON: 1. CR XR CHEST 2V PA LATERAL 04/29/2021 3:40 PM 2. MR THORACIC SPINE WO/W 07/09/2021 10:22 AM FINDINGS: Tubes, catheters and devices: Central line in the SVC. Lungs: No consolidation. No ground-glass opacity. No endobronchial lesion. Lung nodules: No suspicious pulmonary nodule. Pleural spaces: Minimal pleural thickening at the left lung base. No pleural effusion. No pneumothorax. Heart: No cardiomegaly. No pericardial effusion. Lymph nodes: No mediastinal, hilar or axillary adenopathy. Vasculature: Unremarkable. No aortic aneurysm. Intraperitoneal space: Visualized upper abdomen is unremarkable. Bones/joints: No significant bony or joint space abnormality. Soft tissues: Extrathoracic soft tissues are unremarkable. IMPRESSION: No acute findings. No pneumonia. PROCEDURE INFORMATION: Exam: CT Abdomen And Pelvis Without Contrast Exam date and time: 12/29/2021 11:16 PM Age: 61 years old Clinical indication: Other: Confused, HX of leukemia; Patient HX: Abdominal tenderness, HX of toxic megacolon, HX of leukemia TECHNIQUE: Imaging protocol: Computed tomography of the abdomen and pelvis without contrast. Radiation optimization: All CT scans at this facility use at least one of these dose optimization techniques: automated exposure control; mA and/or kV adjustment per patient size (includes targeted exams where dose is matched to clinical indication); or iterative reconstruction. COMPARISON: 1. CR XR CHEST 2V PA LATERAL 04/29/2021 3:40 PM 2. MR THORACIC SPINE WO/W 07/09/2021 10:22 AM FINDINGS: Lungs: Lung bases are unremarkable. Liver: Tiny right hepatic cyst. Gallbladder and bile ducts: No calcified stones. No definite gallbladder wall thickening or biliary dilatation. Pancreas: No mass or peripancreatic edema. Spleen: No splenomegaly. Adrenal glands: No adrenal nodule. Kidneys and ureters: No hydronephrosis. No renal or ureteral calculi. Stomach and bowel: Right lower ileostomy. Status post colectomy. Minimal stranding at the distal site of resection mid sigmoid may be postoperative. No small bowel dilatation. Appendix: No evidence of appendicitis. Intraperitoneal space: No free air or free fluid. Vasculature: No abdominal aortic aneurysm. Lymph nodes: No significant adenopathy. Urinary bladder: No bladder stone. No definite bladder wall thickening. Reproductive: Prostate is enlarged measuring 5.6 cm in transverse dimension. Bones/joints: No significant bony or joint space abnormality. Soft tissues: Extra-abdominal soft tissues are unremarkable. IMPRESSION: No acute intra-abdominal findings. Dictated and Authenticated by: Mikael Oliveira MD. Ordering:MILES Gonzalez MD
--- NOTE | 2021-12-30 00:37 | W.PM.HP.N ---
Date of service: 12/30/21 Time of Service: 23:37 Assessment and Plan Assessment and plan (1) Acute confusion: Status: Acute Assessment and plan: Confusion. Dehydration likely contributing at least some but at this point unclear whether there may some underlying inciting event. Possible UTI remains to be specifically evaluated. The mucositis may also be contributing as making it difficult to take PO. For now will hydrate, monitor renal function, and will attempt to obtain U/A via condom cath (guardian requests we not do straight cath). I would also note that at this point I do not have active med list, [place] [facility] [place] Reviewed [place]s, guardian requests Full Code. History of Present Illness History of Present Illness Chief Complaint: confusion Narrative: 61 anamaria with multiple problems, including AML, h/o C diff with toxic megacolon, s/p bowel resection with colostomy, mucositis with [place] [facility] [place] -- here with several days of poor PO intake, not taking meds and now one day of confusion. Here in ER initial findings of note for absence of fever, obvious signs of dehydration; white count 7.5; electrolytes normal save HCO3 17; glucose 91, Ca 9.4, BUN 51, Creat 3.3; normal transaminases and ammonia 20; lactate 3.2; CT head, chest and abdomen w/o acute findings. Blood cxx obtainred, urine uncollected. COVID negative. I was asked to evaluate for admission. Patient denies pain but unable to provide any history otherwise. History from ER and from patient friend and guardian. Review of Systems Narrative: per HPI PFSH All Active Problems Acute confusion (Acute) Acute dehydration (Acute) Acute kidney injury (Acute) Leukemia (Chronic) BPH (benign prostatic hyperplasia) (Chronic) Recurrent Clostridioides difficile diarrhea (Acute) Diplopia (Acute) Hypomagnesemia (Acute) Binocular vision disorder with diplopia (Acute) Back pain (Acute) Atrial fibrillation (Active 12/04/12) Hx of a fib in 2004 and 2008 wiht eletrical cardioversion. Echocardiogram 2008 showieng EF of 75%, mild LVH, no valvular abnormalities. Flecanide Rx. History of surgery (Active) Colonoscopy 07/06/2011 with tubular adenoma. S/P repair of Achilles tendon. S/P tonsillectomy and adenoidectomy. Gastroesophageal reflux disease (Active) Hx of colonic polyps (Acute) Anemia (Chronic) Leukocytosis (Acute) Medical History GERD (gastroesophageal reflux disease) History of colon polyps Palliative care patient Paroxysmal atrial fibrillation Surgical History Colonoscopy - IV Sedation Repair, Tendon or Muscle achilles Tonsillectomy and adenoidectomy Social History Smoking/Tobacco Use Status: Never Smoking risk assessment performed?: Yes Alcohol Intake: current Alcohol Intake frequency: holidays/special occasions only Drug use: Never Do you feel safe at home: Yes Do you feel safe in your relationship?: Yes Meds Allergies and Home Medications Allergies Allergy/AdvReac Type Severity Reaction Status Date / Time metoprolol AdvReac skips in Unverified 12/29/21 21:50 heart rate all sugar substitutes AdvReac Uncoded 12/29/21 21:50 Home Medications Medication Instructions Recorded Confirmed Type flecainide 50 mg tablet 50 mg PO BID 12/24/16 07/07/21 History tamsulosin 0.4 mg capsule 0.4 mg PO DAILY AM 04/29/21 07/07/21 History famotidine 20 mg tablet 20 mg PO BID 07/07/21 07/07/21 History metoprolol tartrate 25 mg tablet 12.5 mg PO BID 07/07/21 07/07/21 History fidaxomicin 200 mg tablet (Dificid) 200 mg PO BID #17 tabs 07/09/21 Rx Exam Narrative Exam Narrative: 116/77/ 80, 36.4, 28, 98% RA. HEENT atraumatic, oral mucosa extremely dry, no individual oral lesions noted; neck supple; lungs clear; heart RRR; abdomen soft anfd NT, ostomy with semiliquid stool; extremities w/o edema; neuro awake, somewhat restless appearing; Ox1, moves all 4s and follows one step commands Results Labs Result diagrams: 12/29/21 21:30 12/29/21 21:30 Labs: Laboratory Results - last 24 hr 12/29/21 12/29/21 12/29/21 21:30 21:30 21:30 WBC RBC Hgb Hct MCV MCH MCHC RDW Plt Count MPV Immature Gran % Neutrophils % Lymphocytes % Monocytes % Eosinophils % Basophils % Nucleated RBC % Absolute Neutrophils Absolute Lymphocytes Absolute Monocytes Absolute Eosinophils Absolute Basophils VBG pH VBG pCO2 VBG pO2 VBG HCO3 VBG Total CO2 VBG O2 Saturation VBG Base Excess VBG Lactate 3.2 H* Sodium 139 Potassium 4.4 Chloride 106 Carbon Dioxide 17.1 L Anion Gap 15.9 H BUN 51 H Creatinine 3.3 H Estimated GFR/1.73 m2 19.15 Glucose 91 Calcium 9.4 Total Bilirubin 0.8 AST 18 ALT 22 Alkaline Phosphatase 158 H Ammonia 20 Troponin I < 50 Total Protein 7.3 Albumin 3.9 Lipase 199 COVID-19 Source SARS-CoV-2 (PCR) Influenza Type A (PCR) Influenza Type B (PCR) RSV (PCR) 12/29/21 12/29/21 12/29/21 21:30 21:30 22:50 WBC 7.50 RBC 3.11 L Hgb 10.4 L Hct 30.6 L MCV 98 H MCH 33.4 H MCHC 34.0 RDW 18.2 H Plt Count 80 L MPV 11.9 H Immature Gran % 0.8 Neutrophils % 81.7 Lymphocytes % 12.4 Monocytes % 4.7 Eosinophils % 0.3 Basophils % 0.1 Nucleated RBC % 0.0 Absolute Neutrophils 6.13 Absolute Lymphocytes 0.93 L Absolute Monocytes 0.35 Absolute Eosinophils 0.02 Absolute Basophils 0.01 VBG pH 7.45 H VBG pCO2 24 L VBG pO2 35 VBG HCO3 17 L VBG Total CO2 16 L VBG O2 Saturation 68 VBG Base Excess -7 L VBG Lactate Sodium Potassium Chloride Carbon Dioxide Anion Gap BUN Creatinine Estimated GFR/1.73 m2 Glucose Calcium Total Bilirubin AST ALT Alkaline Phosphatase Ammonia Troponin I Total Protein Albumin Lipase COVID-19 Source Not Applicable SARS-CoV-2 (PCR) Negative Influenza Type A (PCR) Negative Influenza Type B (PCR) Negative RSV (PCR) Negative Last Vital Signs Temp 36.4 C L 12/29/21 21:42 Pulse 80 12/29/21 22:46 Resp 28 H 12/29/21 22:52 BP 116/77 12/29/21 22:46 Pulse Ox 98 12/29/21 22:52
[2021-12-30 01:44] LABS: Bilirubin Negative (Negative); Blood Negative (Negative); Clarity Clear (Clear); Glucose Negative (Negative); Ketones Negative (Negative); Leukocyte Esterase Negative (Negative); Nitrite Negative (Negative); Specific Gravity >= 1.030 (1.005-1.025); Urobilinogen 0.2 EU/dL (Up TO 0.2); pH 5.5 (5-8)
[2021-12-30] MEDS: Lactated Ringers 1,000 ML 125 ML IV ×3 (02:11→22:31)
[2021-12-30 03:39] LABS: C Diff PCR Negative (Negative)
--- NOTE | 2021-12-30 04:35 | NUR.NOTE ---
Nursing Note: unable to complete full admission assessment at Pt unable to answer questions about ADL's, prior living situation and if he has any medical equipment at home. Pt does respond to name and did state he was in the hospital.
[2021-12-30 06:28] LABS: Lactate 0.8 mmol/L (0.6-1.4)
[2021-12-30 06:34] LABS: HCT 27.2 % (40.0-50.0); MCH 33.5 pg (27.0-33.0); MCHC 33.1 % (32.0-36.0); MCV 101 fL (80-95); MPV 11.7 fL (8.0-11.0); RBC 2.69 10^6/uL (4.36-5.78); RDW 18.6 % (11.8-14.1); RDW-SD 68.5 fL
[2021-12-30 06:50] LABS: Anion Gap 10.7 mmol/L (3-11); BUN 47 mg/dL (7-18); CO2 21.3 mmol/L (21.0-32.0); CREATININE 3.1 mg/dL (0.70-1.30); Calcium 8.8 mg/dL (8.5-10.1); Chloride 110 mmol/L (98-107); Estimated GFR 20.59 (mL/min/1.73m2); Glucose 95 mg/dL (74-106); Potassium 4.6 mmol/L (3.5-5.1); Sodium 142 mmol/L (136-145)
[2021-12-30 07:18] LABS: Platelet Count 61 10^3/uL (130-400)
--- NOTE | 2021-12-30 07:26 | PCNE_ITS ---
Date of service: 12/30/21 Time of Service: 06:27 History of Present Illness History of Present Illness Chief Complaint: None per patient - AMS Narrative: From H and P History of Present Illness?Chief Complaint: confusion?Narrative: 61 anamaria with multiple problems, including AML, h/o C diff with toxic megacolon, s/p bowel resection with colostomy, mucositis with recent [facility] admit for dehydration -- here with several days of poor PO intake, not taking meds and now one day of confusion. Here in ER initial findings of note for absence of fever, obvious signs of dehydration; white count 7.5; electrolytes normal save HCO3 17; glucose 91, Ca 9.4, BUN 51, Creat 3.3; normal transaminases and ammonia 20; lactate 3.2; CT head, chest and abdomen w/o acute findings. Blood cxx obtainred, urine uncollected. COVID negative. I was asked to evaluate for admission. Patient denies pain but unable to provide any history otherwise. History from ER and from patient friend and guardian. Interval Hx: I am meeting with Herber this morning. He does not know where he is. He does not know why he is here. He feels he is getting along just fine. Assessment and Plan Assessment and plan (1) Acute confusion: Status: Acute (2) Acute dehydration: Status: Acute (3) Leukemia: Status: Chronic (4) Palliative care patient: Status: Acute Assessment and plan: Herber is unable to give me much in the way of history. His physical exam was fa irly benign. I did call up his DPOA, Colby Carmona. Lissett summoned EMS who brought him to the hospital and was with him until about 1:00 this a.m. I spoke with Colby this morning who states that Herber is just been different recently. He is not taking any p.o. As far as he is concerned Herber is doing well with his cancer therapy and would not want to change his CODE STATUS. He is in favor of Herber returning to [facility]. He has reached out to Annika's medicare specialist at [facility] to see if this can be facilitated. I am uncertain about Herber's baseline at this point. He has had 2 bags of fluid and has not been able to answer even simple questions for me. Colby was firm that he needs more time and he needs nourishment in order to improve. Will continue to follow Herber in hospital and outpatient Review of Systems Narrative: He personally has no complaints., No pain, no shortness of breath subjectively, no bowel problems PFSH All Active Problems (Updated 12/30/21 @ 08:28 by Patricia Oglesby MD, DC) Palliative care patient (Acute) Acute confusion (Acute) Acute dehydration (Acute) Acute kidney injury (Acute) Leukemia (Chronic) BPH (benign prostatic hyperplasia) (Chronic) Recurrent Clostridioides difficile diarrhea (Acute) Diplopia (Acute) Hypomagnesemia (Acute) Binocular vision disorder with diplopia (Acute) Back pain (Acute) Atrial fibrillation (Active 12/04/12) Hx of a fib in 2004 and 2008 wiht eletrical cardioversion. Echocardiogram 2008 showieng EF of 75%, mild LVH, no valvular abnormalities. Flecanide Rx. History of surgery (Active) Colonoscopy 07/06/2011 with tubular adenoma. S/P repair of Achilles tendon. S/P tonsillectomy and adenoidectomy. Gastroesophageal reflux disease (Active) Hx of colonic polyps (Acute) Anemia (Chronic) Leukocytosis (Acute) Medical History GERD (gastroesophageal reflux disease) History of colon polyps Palliative care patient Paroxysmal atrial fibrillation Surgical History Colonoscopy - IV Sedation Repair, Tendon or Muscle achilles Tonsillectomy and adenoidectomy Social History Smoking/Tobacco Use Status: Never Smoking risk assessment performed?: Yes Alcohol Intake: current Alcohol Intake frequency: holidays/special occasions only Drug use: Never Do you feel safe at home: Yes Do you feel safe in your relationship?: Yes Exam Narrative Exam Narrative: Herber is unable to answer any questions. When I ask him questions he often times stares off into space. He does say that he has help at home. His heart is regular. He does follow the commands to lie on his side. He has some scattered rales. His abdomen has good bowel sounds. There is stool in his colostomy bag. He has minimal edema. He does not have a Cha in place. He has urination in the toilet hat but not in the urinal. Results Last Vital Signs Temp 98.6 F 12/30/21 03:14 Pulse 90 12/30/21 03:14 Resp 18 12/30/21 03:14 BP 104/56 L 12/30/21 03:14 Pulse Ox 98 12/30/21 03:14 Labs Result diagrams: 12/30/21 06:20 12/30/21 06:20 Labs: Laboratory Results - last 24 hr 12/29/21 12/29/21 12/29/21 21:30 21:30 21:30 WBC RBC Hgb Hct MCV MCH MCHC RDW Plt Count MPV Immature Gran % Neutrophils % Lymphocytes % Monocytes % Eosinophils % Basophils % Nucleated RBC % Absolute Neutrophils Absolute Lymphocytes Absolute Monocytes Absolute Eosinophils Absolute Basophils VBG pH VBG pCO2 VBG pO2 VBG HCO3 VBG Total CO2 VBG O2 Saturation VBG Base Excess VBG Lactate 3.2 H* Sodium 139 Potassium 4.4 Chloride 106 Carbon Dioxide 17.1 L Anion Gap 15.9 H BUN 51 H Creatinine 3.3 H Estimated GFR/1.73 m2 19.15 Glucose 91 Calcium 9.4 Total Bilirubin 0.8 AST 18 ALT 22 Alkaline Phosphatase 158 H Ammonia 20 Troponin I < 50 Total Protein 7.3 Albumin 3.9 Lipase 199 Urine Color Urine Clarity Urine pH Ur Specific [place] Urine Protein Urine Ketones Urine Blood Urine Nitrite Urine Bilirubin Urine Urobilinogen Ur Leukocyte Esterase Urine Glucose Stl C.difficile Tox PCR COVID-19 Source SARS-CoV-2 (PCR) Influenza Type A (PCR) Influenza Type B (PCR) RSV (PCR) 12/29/21 12/29/21 12/29/21 21:30 21:30 22:50 WBC 7.50 RBC 3.11 L Hgb 10.4 L Hct 30.6 L MCV 98 H MCH 33.4 H MCHC 34.0 RDW 18.2 H Plt Count 80 L MPV 11.9 H Immature Gran % 0.8 Neutrophils % 81.7 Lymphocytes % 12.4 Monocytes % 4.7 Eosinophils % 0.3 Basophils % 0.1 Nucleated RBC % 0.0 Absolute Neutrophils 6.13 Absolute Lymphocytes 0.93 L Absolute Monocytes 0.35 Absolute Eosinophils 0.02 Absolute Basophils 0.01 VBG pH 7.45 H VBG pCO2 24 L VBG pO2 35 VBG HCO3 17 L VBG Total CO2 16 L VBG O2 Saturation 68 VBG Base Excess -7 L VBG Lactate Sodium Potassium Chloride Carbon Dioxide Anion Gap BUN Creatinine Estimated GFR/1.73 m2 Glucose Calcium Total Bilirubin AST ALT Alkaline Phosphatase Ammonia Troponin I Total Protein Albumin Lipase Urine Color Urine Clarity Urine pH Ur Specific [place] Urine Protein Urine Ketones Urine Blood Urine Nitrite Urine Bilirubin Urine Urobilinogen Ur Leukocyte Esterase Urine Glucose Stl C.difficile Tox PCR COVID-19 Source Not Applicable SARS-CoV-2 (PCR) Negative Influenza Type A (PCR) Negative Influenza Type B (PCR) Negative RSV (PCR) Negative 12/30/21 12/30/21 12/30/21 00:50 02:20 06:20 WBC RBC Hgb Hct MCV MCH MCHC RDW Plt Count MPV Immature Gran % Neutrophils % Lymphocytes % Monocytes % Eosinophils % Basophils % Nucleated RBC % Absolute Neutrophils Absolute Lymphocytes Absolute Monocytes Absolute Eosinophils Absolute Basophils VBG pH VBG pCO2 VBG pO2 VBG HCO3 VBG Total CO2 VBG O2 Saturation VBG Base Excess VBG Lactate Sodium 142 Potassium 4.6 Chloride 110 H Carbon Dioxide 21.3 Anion Gap 10.7 BUN 47 H Creatinine 3.1 H Estimated GFR/1.73 m2 20.59 Glucose 95 Calcium 8.8 Total Bilirubin AST ALT Alkaline Phosphatase Ammonia Troponin I Total Protein Albumin Lipase Urine Color Yellow Urine Clarity Clear Urine pH 5.5 Ur Specific [place] >= 1.030 H Urine Protein Negative Urine Ketones Negative Urine Blood Negative Urine Nitrite Negative Urine Bilirubin Negative Urine Urobilinogen 0.2 Ur Leukocyte Esterase Negative Urine Glucose Negative Stl C.difficile Tox PCR Negative COVID-19 Source SARS-CoV-2 (PCR) Influenza Type A (PCR) Influenza Type B (PCR) RSV (PCR) 12/30/21 12/30/21 06:20 06:20 WBC 5.60 RBC 2.69 L Hgb 9.0 L Hct 27.2 L MCV 101 H MCH 33.5 H MCHC 33.1 D RDW 18.6 H Plt Count 61 L MPV 11.7 H Immature Gran % Neutrophils % Lymphocytes % Monocytes % Eosinophils % Basophils % Nucleated RBC % Absolute Neutrophils Absolute Lymphocytes Absolute Monocytes Absolute Eosinophils Absolute Basophils VBG pH VBG pCO2 VBG pO2 VBG HCO3 VBG Total CO2 VBG O2 Saturation VBG Base Excess VBG Lactate 0.8 Sodium Potassium Chloride Carbon Dioxide Anion Gap BUN Creatinine Estimated GFR/1.73 m2 Glucose Calcium Total Bilirubin AST ALT Alkaline Phosphatase Ammonia Troponin I Total Protein Albumin Lipase Urine Color Urine Clarity Urine pH Ur Specific [place] Urine Protein Urine Ketones Urine Blood Urine Nitrite Urine Bilirubin Urine Urobilinogen Ur Leukocyte Esterase Urine Glucose Stl C.difficile Tox PCR COVID-19 Source SARS-CoV-2 (PCR) Influenza Type A (PCR) Influenza Type B (PCR) RSV (PCR)
--- NOTE | 2021-12-30 09:03 | INITIAL_ITS ---
- If Service Date Differs Date of service: 12/30/21 Time of Service: 09:03 Care Management Initial Assess REASON FOR HOSPITALIZATION:: Dehydration, confusion PAST MEDICAL HISTORY/PAST SURGICAL HISTORY:: All Active Problems . Acute confusion (Acute). Acute dehydration (Acute). Acute kidney injury (Acute). Leukemia (Chronic). BPH (benign prostatic hyperplasia) (Chronic). Recurrent Clostridioides difficile diarrhea (Acute). Diplopia (Acute). Hypomagnesemia (Acute). Binocular vision disorder with diplopia (Acute). Back pain (Acute). Atrial fibrillation (Active 12/04/12). Hx of a fib in 2004 and 2008 wiht eletrical cardioversion. Echocardiogram 2008 showieng EF of 75%, mild LVH, no valvular abnormalities. Flecanide Rx. History of surgery (Active). Colonoscopy 07/06/2011 with tubular adenoma. S/P repair of Achilles tendon. S/P tonsillectomy and adenoidectomy. Gastroesophageal reflux disease (Active). Hx of colonic polyps (Acute). Anemia (Chronic). Leukocytosis (Acute). Medical History . GERD (gastroesophageal reflux disease). History of colon polyps. Palliative care patient. Paroxysmal atrial fibrillation. Surgical History . Colonoscopy - IV Sedation. Repair, Tendon or Muscle. achilles. Tonsillectomy and adenoidectomy PREVIOUS FUNCTIONAL STATUS/SOCIAL/FAMILY SUPPORTS:: Herber lives alone in [facility] with his significant other, Chai. His close friend and HCA is Colby Lopez. Herber has not driven since April due to his declining health. Herber has a walker and requires significant help with his ADL's. He met with [facility] PT/OT last week, however he was to weak to work with them. CURRENT FUNCTIONAL STATUS:: Herber was lying in bed when CM met with him. He was accompanied by Colby and his S/O Chai. Colby would like to know if Herber is a canidate for Marinol to increase his appetite? He also mentioned that Herber had a biopsy last week and would like to review the results with a provider if they are available. CM will relay info to his provider. ADVANCE DIRECTIVES:: On file, HCA is Colby Lopez, Alternate is Chai Orlando. Has patient been provided with info about the portal/API?: Yes Did the patient sign up for the portal?: No CODE STATUS:: Full Code INSURANCE COVERAGE / FINANCIAL ISSUES:: Medicaid. [employer]. [facility] CURRENT HOME/COMMUNITY SERVICES/EQUIPMENT:: Has [facility] PT/OT, however he was unable to work with them last week d/t weakness. Has a walker. Requires assistance with ADL's PRIMARY CARE PHYSICIAN:: Beatriz Maurice POTENTIAL DISCHARGE NEEDS:: Follow up appointments, discharge plan of care. PATIENT/FAMILY EDUCATION NEEDS:: Review discharge instructions, limitations, medications and plan to follow up with community providers. ask me three. TRANSPORTATION:: Via private vehicle with family/friend. PLAN:: Anticipate, Herber will discharge to [facility] vs home when medically ready per provider. Transportation will be dependent on disposition. CM will continue to support discharge planning needs.
--- NOTE | 2021-12-30 11:41 | NUR.NOTE ---
Nursing Note:Pt refuses to eat breakfast. He does not respond to questions about he feels and or if he had any pain
[2021-12-30] MEDS: FAMOTIDINE 20 MG in Normal Saline 100 ML 400 MG IVPB (13:06)
[2021-12-30] MEDS: FLUCONAZOLE 200 MG/100 ML BAG 100 MG IVPB (13:40)
--- NOTE | 2021-12-30 13:57 | PGE_ITS ---
Date of Service Date of service: 12/30/21 Time of Service: 12:57 Assessment and Plan Assessment and plan (1) Acute kidney injury: Status: Acute Assessment and plan: pre-renal from dehydration continue IV fluids (2) Acute confusion: Status: Acute Assessment and plan: no source identified, head CT negative safety precautions (3) Leukemia: Status: Chronic Assessment and plan: followed [place] [facility] [place] pending bed availability, anticipate tomorrow afternoon accepting is Dr Freitas case was discussed with Dr Barlow with medication review. agrees to keep acyclovir with renal dosing, fluconazole, prednisone, tacrolimus, metoprolol, flecanide. patient has not been taking dronabinol d/t insurance authorization. (4) BPH (benign prostatic hyperplasia): Status: Chronic Assessment and plan: will monitor for retention. tamsulosin on hold. (5) Recurrent Clostridioides difficile diarrhea: Status: Acute Assessment and plan: tested negative. (6) Atrial fibrillation: Status: Active Assessment and plan: rate controlled. continue metoprolol and flecanide. discussed with Dr Parra Subjective Subjective Patient reports: no new complaints Interval history since last seen: remains confused, not taking any po. Exam Const General: cooperative, comfortable, frail appearing and ill appearing chronically Nutritional Appearance: average body habitus Orientation: alert, awake, oriented to person and confused Resp Effort & Inspection: normal respiratory effort Auscultation: diminished lung sounds Cardio Rate: regular rate Rhythm: regular rhythm GI Inspection: normal to inspection Palpation: soft and nontender Skin Rashes: no rashes Neuro General: patient alert, patient awake and no focal motor deficits Cognition: abnormal cognition Speech: speech normal Gait: other (has been on bedrest) Motor: muscle tone normal throughout Extrem General: normal to inspection and no pedal edema Objective Last Vital Signs Temp 37.1 C 12/30/21 08:10 Pulse 94 H 12/30/21 08:10 Resp 36 H 12/30/21 08:10 BP 116/79 12/30/21 08:10 Pulse Ox 100 12/30/21 08:10 Laboratory Results - last 24 hr 12/29/21 12/29/21 12/29/21 21:30 21:30 21:30 WBC RBC Hgb Hct MCV MCH MCHC RDW Plt Count MPV Immature Gran % Neutrophils % Lymphocytes % Monocytes % Eosinophils % Basophils % Nucleated RBC % Absolute Neutrophils Absolute Lymphocytes Absolute Monocytes Absolute Eosinophils Absolute Basophils VBG pH VBG pCO2 VBG pO2 VBG HCO3 VBG Total CO2 VBG O2 Saturation VBG Base Excess VBG Lactate 3.2 H* Sodium 139 Potassium 4.4 Chloride 106 Carbon Dioxide 17.1 L Anion Gap 15.9 H BUN 51 H Creatinine 3.3 H Estimated GFR/1.73 m2 19.15 Glucose 91 Calcium 9.4 Total Bilirubin 0.8 AST 18 ALT 22 Alkaline Phosphatase 158 H Ammonia 20 Troponin I < 50 Total Protein 7.3 Albumin 3.9 Lipase 199 Urine Color Urine Clarity Urine pH Ur Specific [place] Urine Protein Urine Ketones Urine Blood Urine Nitrite Urine Bilirubin Urine Urobilinogen Ur Leukocyte Esterase Urine Glucose Stl C.difficile Tox PCR COVID-19 Source SARS-CoV-2 (PCR) Influenza Type A (PCR) Influenza Type B (PCR) RSV (PCR) 12/29/21 12/29/21 12/29/21 21:30 21:30 22:50 WBC 7.50 RBC 3.11 L Hgb 10.4 L Hct 30.6 L MCV 98 H MCH 33.4 H MCHC 34.0 RDW 18.2 H Plt Count 80 L MPV 11.9 H Immature Gran % 0.8 Neutrophils % 81.7 Lymphocytes % 12.4 Monocytes % 4.7 Eosinophils % 0.3 Basophils % 0.1 Nucleated RBC % 0.0 Absolute Neutrophils 6.13 Absolute Lymphocytes 0.93 L Absolute Monocytes 0.35 Absolute Eosinophils 0.02 Absolute Basophils 0.01 VBG pH 7.45 H VBG pCO2 24 L VBG pO2 35 VBG HCO3 17 L VBG Total CO2 16 L VBG O2 Saturation 68 VBG Base Excess -7 L VBG Lactate Sodium Potassium Chloride Carbon Dioxide Anion Gap BUN Creatinine Estimated GFR/1.73 m2 Glucose Calcium Total Bilirubin AST ALT Alkaline Phosphatase Ammonia Troponin I Total Protein Albumin Lipase Urine Color Urine Clarity Urine pH Ur Specific [place] Urine Protein Urine Ketones Urine Blood Urine Nitrite Urine Bilirubin Urine Urobilinogen Ur Leukocyte Esterase Urine Glucose Stl C.difficile Tox PCR COVID-19 Source Not Applicable SARS-CoV-2 (PCR) Negative Influenza Type A (PCR) Negative Influenza Type B (PCR) Negative RSV (PCR) Negative 12/30/21 12/30/21 12/30/21 00:50 02:20 06:20 WBC RBC Hgb Hct MCV MCH MCHC RDW Plt Count MPV Immature Gran % Neutrophils % Lymphocytes % Monocytes % Eosinophils % Basophils % Nucleated RBC % Absolute Neutrophils Absolute Lymphocytes Absolute Monocytes Absolute Eosinophils Absolute Basophils VBG pH VBG pCO2 VBG pO2 VBG HCO3 VBG Total CO2 VBG O2 Saturation VBG Base Excess VBG Lactate Sodium 142 Potassium 4.6 Chloride 110 H Carbon Dioxide 21.3 Anion Gap 10.7 BUN 47 H Creatinine 3.1 H Estimated GFR/1.73 m2 20.59 Glucose 95 Calcium 8.8 Total Bilirubin AST ALT Alkaline Phosphatase Ammonia Troponin I Total Protein Albumin Lipase Urine Color Yellow Urine Clarity Clear Urine pH 5.5 Ur Specific [place] >= 1.030 H Urine Protein Negative Urine Ketones Negative Urine Blood Negative Urine Nitrite Negative Urine Bilirubin Negative Urine Urobilinogen 0.2 Ur Leukocyte Esterase Negative Urine Glucose Negative Stl C.difficile Tox PCR Negative COVID-19 Source SARS-CoV-2 (PCR) Influenza Type A (PCR) Influenza Type B (PCR) RSV (PCR) 12/30/21 12/30/21 06:20 06:20 WBC 5.60 RBC 2.69 L Hgb 9.0 L Hct 27.2 L MCV 101 H MCH 33.5 H MCHC 33.1 D RDW 18.6 H Plt Count 61 L MPV 11.7 H Immature Gran % Neutrophils % Lymphocytes % Monocytes % Eosinophils % Basophils % Nucleated RBC % Absolute Neutrophils Absolute Lymphocytes Absolute Monocytes Absolute Eosinophils Absolute Basophils VBG pH VBG pCO2 VBG pO2 VBG HCO3 VBG Total CO2 VBG O2 Saturation VBG Base Excess VBG Lactate 0.8 Sodium Potassium Chloride Carbon Dioxide Anion Gap BUN Creatinine Estimated GFR/1.73 m2 Glucose Calcium Total Bilirubin AST ALT Alkaline Phosphatase Ammonia Troponin I Total Protein Albumin Lipase Urine Color Urine Clarity Urine pH Ur Specific [place] Urine Protein Urine Ketones Urine Blood Urine Nitrite Urine Bilirubin Urine Urobilinogen Ur Leukocyte Esterase Urine Glucose Stl C.difficile Tox PCR COVID-19 Source SARS-CoV-2 (PCR) Influenza Type A (PCR) Influenza Type B (PCR) RSV (PCR)
--- NOTE | 2021-12-30 16:38 | PHACLINREV_ITS ---
Pharmacy Admission Review - Admission Clinical Review (Last Reviewed 12/30/21 @ 00:46 by Graham Betancourt MD) Palliative care patient (Acute) Acute confusion (Acute) Acute dehydration (Acute) Acute kidney injury (Acute) Recurrent Clostridioides difficile diarrhea (Acute) Atrial fibrillation (Active 12/04/12) metoprolol Adverse Reaction (Unverified 12/30/21 01:38) skips in heart rate all sugar substitutes Adverse Reaction (Uncoded 12/30/21 01:38) Resuscitation Status Full Code Height 6 ft Weight 90.718 kg - Renal Dosing Renal Dosing: BUN 47 mg/dL (7-18) H 12/30/21 06:20 Creatinine 3.1 mg/dL (0.70-1.30) H 12/30/21 06:20 Medications needing adjustments: Intervened (Crcl ~27 mL/min. I talked to the provider about renally adjusting the famotidine when it was ordered; current meds okay/renally adjusted.) - Anticoagulation Anticoagulation: Hgb 9.0 g/dL (13.5-17.5) L 12/30/21 06:20 Hct 27.2 % (40.0-50.0) L 12/30/21 06:20 Plt Count 61 10^3/uL (130-400) L 12/30/21 06:20 Creatinine 3.1 mg/dL (0.70-1.30) H 12/30/21 06:20 DVT Prophylaxis: Intervened (plt-61, TEDs and SCDs ordered) Therapeutic Anticoagulation: N/A - Opiate Usage Evaluate Pain Scale/Pains Meds: N/A - Relevant Labs Sodium 142 mmol/L (136-145) 12/30/21 06:20 Potassium 4.6 mmol/L (3.5-5.1) 12/30/21 06:20 Chloride 110 mmol/L (98-107) H 12/30/21 06:20 Electrolytes, C-Reactive P, ESR: Reviewed - DM Control DM Control: Glucose 95 mg/dL (74-106) 12/30/21 06:20 Insulin Dosing: N/A - Heart Failure/ND Heart Failure/ND: Troponin I < 50 ng/L (<or=60) 12/29/21 21:30 EF%, RO's, B-Blockers, Diuretics: Reviewed - BP Control BP Control: Blood Pressure 161/95 Blood Pressure 116/79 If elevated: Reviewed (BP has been and up and down some since admission) - Qtc Review If Elevated: Reviewed (QTc 481 on admission, pt has flecainde, fluconazole, and tacrolimus ordered per [facility] recommendations.) - IV to PO Switch IV Medications: Reviewed (most meds changed to IV if possible as pt remains confused and my have difficulty taking PO due to mucositis per progress and palliative notes.) - Home Meds Home Med List reviewed: Reviewed Relevent Home Meds Not ordered & why?: aspirin, dronabinol, fidaxomycin (C.Diff negative per progress note), tamsulosin (being held per progress note) - Current meds Current Medication Order Review: Reviewed - Comments Comments/Follow Ups: Watch BP, SCr, plts, labs and for med changes (possible renal dose adjustments, avoid QT prolonging meds).
[2021-12-30] MEDS: methylPREDNISolone SUCC 40 MG VIAL 24 MG IVP (17:29)
[2021-12-30] MEDS: ACETAMINOPHEN 1,000 MG/100 ML BTL 400 MG IVPB (19:53)
[2021-12-30] MEDS: Tacrolimus 0.5 MG CAP PO (19:54)
[2021-12-30] MEDS: Metoprolol 12.5 MG TAB PO (19:54)
[2021-12-30] MEDS: Nystatin 500000 UNITS/5 ML SUSP 5ML CUP PO (22:50)
[2021-12-31 05:21] VITALS: BP 133/78; PULSE 78; RESP 19; TEMP 36.1; O2SAT 99
[2021-12-31] MEDS: Nystatin 500000 UNITS/5 ML SUSP 5ML CUP PO ×5 (05:22→21:43)
[2021-12-31] MEDS: Lactated Ringers 1,000 ML 125 ML IV (06:54)
--- NOTE | 2021-12-31 08:32 | PDOC.CMPRO ---
- If Service Date Differs Date of service: 12/31/21 Time of Service: 08:32 Care Management Progress Note S/O: Herber was lying in bed with his s/o Chai visiting. Herber is awake, alert and engages in conversation easily today. Herber will likely transfer to [facility] Hemotology/oncology via EMS pending bed availability. Herber's PO intake continues to improve, he is on marinol, IV hydration and requires close monitoring. A: 61 year old male admitted to [facility] on 12/30/21 for Dehydration, confusion. P: Anticipate, Herber will discharge to [facility] vs home when medically ready per provider. Transportation will be dependent on disposition. CM will continue to support discharge planning needs.
[2021-12-31] MEDS: methylPREDNISolone SUCC 40 MG VIAL 24 MG IVP (08:47)
[2021-12-31] MEDS: Metoprolol 12.5 MG TAB PO ×2 (08:49→21:44)
[2021-12-31] MEDS: Tacrolimus 0.5 MG CAP PO ×2 (08:49→21:44)
[2021-12-31] MEDS: FLUCONAZOLE 200 MG/100 ML BAG 100 MG IVPB (08:49)
[2021-12-31 11:15] LABS: Tacrolimus 7.9 ng/mL (See Note)
--- NOTE | 2021-12-31 11:42 | NS.NUTBLAN_ITS ---
Date of service: 12/31/21 Time of Service: 10:42 Nutritional Consult ASSESSMENT: 61 yo male admitted with dehydration, STACIE with hx of leukemia. Unable to visit with Herber today . Medical chart indicates 28 lbs weight loss in last 90 days (- 14%) which is considered significant. BMI 27 indicates overweight status. Following regular diet with poor intake (<50%). Estimated Needs: [id number] kcal, 60-70 g protein, 2500 ml fluid NUTRITIONAL DIAGNOSIS: inadequate macronutrient intake since admission INTERVENTION: will provide meal preferences, supplement diet as needed with ensure or other high calorie snacks MONITORING AND EVALUATION: weight, po intake, labs Time Spent in Nutritional Counseling and Treatment: 0
[2021-12-31 12:21] VITALS: BP 128/72; PULSE 67; RESP 18; TEMP 35.9; O2SAT 99
--- NOTE | 2021-12-31 13:33 | W.PM.PROGNOT ---
Date of Service Date of service: 12/31/21 Time of Service: 12:34 Assessment and Plan Assessment and plan (1) Acute kidney injury: Status: Acute Assessment and plan: pre-renal from dehydration continue IV fluids, decrease rate now taking PO will check labs tomorrow morning. (2) Acute confusion: Status: Resolved Assessment and plan: resolved with hydration no other source identified, head CT negative safety precautions (3) Leukemia: Status: Chronic Assessment and plan: followed by hem/onc at [facility] [place] they have accepted in transfer pending bed availability accepting is Dr Freitas case was discussed with Dr Barlow with medication review. agrees to keep acyclovir with renal dosing, fluconazole, prednisone, tacrolimus, metoprolol, flecanide. patient has not been taking dronabinol d/t insurance authorization. (4) BPH (benign prostatic hyperplasia): Status: Chronic Assessment and plan: will monitor for retention. tamsulosin on hold. (5) Recurrent Clostridioides difficile diarrhea: Status: Acute Assessment and plan: tested negative. (6) Atrial fibrillation: Status: Active Assessment and plan: rate controlled. continue metoprolol and flecanide. discussed with Dr Justice Subjective Subjective Patient reports: no new complaints, feels better, tolerating liquids well and afebrile; denies nausea or shortness of breath Interval history since last seen: patient now oriented, up in the chair, tolerating clears. voicing no c/o Exam Const General: cooperative, comfortable, frail appearing and ill appearing chronically Nutritional Appearance: average body habitus Orientation: alert, awake, oriented to person and oriented to place [facility] Head: normal to inspection, normocephalic and atraumatic Mouth: mucous membranes dry and moist mucous membranes abnormal (dry mouth, thick dry alfaro layer of film on tongue) Throat: uvula midline Resp Effort & Inspection: normal respiratory effort Auscultation: diminished lung sounds Cardio Rate: regular rate Rhythm: regular rhythm GI Inspection: normal to inspection Palpation: soft and nontender Skin Rashes: no rashes Neuro General: patient alert, patient awake, patient oriented x3, tone normal, moves all extremities and no focal motor deficits Speech: speech normal Motor: muscle tone normal throughout Extrem General: normal to inspection and no pedal edema Objective Last Vital Signs Temp 35.9 C L 12/31/21 12:21 Pulse 67 12/31/21 12:21 Resp 18 05/17/22 12:21 BP 128/72 12/31/21 12:21 Pulse Ox 99 12/31/21 12:21 Laboratory Results - last 24 hr 12/29/21 21:30 Tacrolimus 7.9
[2021-12-31 14:35] VITALS: BP 129/77; PULSE 64; RESP 18; TEMP 36.6; O2SAT 98
[2021-12-31] MEDS: Lactated Ringers 1,000 ML 75 ML IV (17:57)
[2021-12-31] MEDS: Dronabinol 2.5 MG CAP 5 MG PO (21:44)
[2021-12-31 23:28] VITALS: BP 125/80; PULSE 76; RESP 16; TEMP 36.5; O2SAT 99
[2022-01-01] MEDS: Nystatin 500000 UNITS/5 ML SUSP 5ML CUP PO ×5 (06:32→21:31)
[2022-01-01 07:18] LABS: Abs Immature Grans 0.06 10^3/uL (0.0-0.06); Absolute Basophil Count 0.01 10^3/uL (0.0-0.2); Absolute Eosinophil Count 0.02 10^3/uL (0.0-0.7); Absolute Lymphocyte Count 0.87 10^3/uL (1.2-3.4); Absolute Monocyte Count 0.53 10^3/uL (0.1-0.8); Absolute Neutrophil Count 7.59 10^3/uL (1.2-6.7); Basophils % 0.1; Eosinophils % 0.2; HCT 29.8 % (40.0-50.0); HGB 9.8 g/dL (13.5-17.5); Immature Grans % 0.7; Lymphocytes % 9.6; MCH 33.7 pg (27.0-33.0); MCHC 32.9 % (32.0-36.0); MCV 102 fL (80-95); Monocytes % 5.8; Neutrophils % 83.6; RBC 2.91 10^6/uL (4.36-5.78); RDW 18.3 % (11.8-14.1); RDW-SD 68.5 fL; WBC 9.08 10^3/uL (4.4-10.8)
[2022-01-01 07:25] LABS: Anion Gap 11.2 mmol/L (3-11); BUN 38 mg/dL (7-18); CO2 22.8 mmol/L (21.0-32.0); CREATININE 2.3 mg/dL (0.70-1.30); Calcium 8.7 mg/dL (8.5-10.1); Chloride 105 mmol/L (98-107); Estimated GFR 29.05 (mL/min/1.73m2); Glucose 93 mg/dL (74-106); Magnesium 1.4 mg/dL (1.8-2.4); Sodium 139 mmol/L (136-145)
[2022-01-01 07:40] VITALS: BP 126/83; PULSE 77; RESP 17; TEMP 36; O2SAT 99
[2022-01-01 07:40] LABS: Platelet Count 75 10^3/uL (130-400)
[2022-01-01 07:41] LABS: Diff Comment PLT Morph Reviewed; RBC Morphology Normal
[2022-01-01] MEDS: Lactated Ringers 1,000 ML 75 ML IV (08:46)
--- NOTE | 2022-01-01 08:50 | CMPROGNOTE_ITS ---
- If Service Date Differs Date of service: 01/01/22 Time of Service: 08:50 Care Management Progress Note S/O: Herber was lying in bed when when CM met with him he is alert, oriented and easy to engage in conversation. He shares that he is feeling much better. He was visiting with his s/o Chai. Per provider, Clinically Herber is improving and [facility] recommend's SNF placement for STR prior to returning home rather than transferring to [facility]. Following discussion with pt and family SNF referral's were sent to [place], [facility] and [facility]. CM will continue to support discharge planning needs. A: 61 year old male admitted to [facility] on 12/30/21 for Dehydration, confusion. P: Anticipate, Herber will discharge to SNF for STR vs. home with [facility] services when medically ready per provider. SNF referral's were sent to [facility] and [facility]. Transportation will be dependent on on patients disposition. CM will continue to support discharge planning needs.
--- NOTE | 2022-01-01 08:50 | PDOC.CMPRO ---
- If Service Date Differs Date of service: 01/01/22 Time of Service: 08:50 Care Management Progress Note S/O: Herber was lying in bed when when CM met with him he is alert, oriented and easy to engage in conversation. He shares that he is feeling much better. He was visiting with his s/o Chai. Per provider, Clinically Herber is improving and [facility] recommend's SNF placement for STR prior to returning home rather than transferring to [facility]. Following discussion with pt and family SNF referral's were sent to [place], [facility] and [facility]. CM will continue to support discharge planning needs. A: 61 year old male admitted to [facility] on 12/30/21 for Dehydration, confusion. P: Anticipate, Herber will discharge to SNF for STR vs. home with [facility] services when medically ready per provider. SNF referral's were sent to [facility] and [facility]. Transportation will be dependent on on patients disposition. CM will continue to support discharge planning needs.
[2022-01-01] MEDS: FLUCONAZOLE 200 MG/100 ML BAG 100 MG IVPB (08:59)
[2022-01-01] MEDS: predniSONE 10 MG TAB 30 MG PO (08:59)
[2022-01-01] MEDS: Tacrolimus 0.5 MG CAP PO ×2 (08:59→21:31)
[2022-01-01] MEDS: Metoprolol 12.5 MG TAB PO ×2 (08:59→21:30)
[2022-01-01] MEDS: Dronabinol 2.5 MG CAP 5 MG PO (09:00)
[2022-01-01] MEDS: MAGNESIUM SULFATE 2 GM/50 ML BAG IVPB (10:08)
[2022-01-01] MEDS: FAMOTIDINE 20 MG in Normal Saline 100 ML 400 MG IVPB (12:18)
[2022-01-01 16:16] VITALS: BP 122/79; PULSE 73; RESP 18; TEMP 36.5; O2SAT 99
--- NOTE | 2022-01-01 17:36 | W.PM.PROGNOT ---
Date of Service Date of service: 01/01/22 Time of Service: 16:36 Assessment and Plan Assessment and plan (1) Acute kidney injury: Status: Acute Assessment and plan: pre-renal from dehydration continue IV fluids, decrease rate now taking PO improved to 2.3, will stop IV fluids, recheck in am (2) Acute confusion: Status: Resolved Assessment and plan: resolved with hydration no other source identified, head CT negative safety precautions (3) Leukemia: Status: Chronic Assessment and plan: followed by hem/onc at [facility] no need to transfer at this time Dr Barlow updated and she is in agreement with plan and recommendations for skilled level rehab. will follow outpatient (4) BPH (benign prostatic hyperplasia): Status: Chronic Assessment and plan: will monitor for retention. tamsulosin on hold. (5) Recurrent Clostridioides difficile diarrhea: Status: Acute Assessment and plan: tested negative. (6) Atrial fibrillation: Status: Active Assessment and plan: rate controlled. continue metoprolol and flecanide. (7) Discharge planning issues: Status: Acute Assessment and plan: anticipate discharge to care home facility referrals placed and pending acceptance case management following. discussed with Dr Justice Subjective Subjective Patient reports: no new complaints and feels better Interval history since last seen: back to his baseline, working with PT, ate 100% breakfast Exam Const General: cooperative and comfortable Nutritional Appearance: average body habitus Orientation: alert, awake, oriented to person and oriented to place [facility] Head: normal to inspection, normocephalic and atraumatic Mouth: mucous membranes dry and moist mucous membranes abnormal (dry mouth, thick dry alfaro layer of film on tongue) Resp Effort & Inspection: normal respiratory effort Auscultation: diminished lung sounds Cardio Rate: regular rate Rhythm: regular rhythm GI Inspection: normal to inspection Palpation: soft and nontender Skin Rashes: no rashes Neuro General: patient alert, patient awake, patient oriented x3, tone normal, moves all extremities and no focal motor deficits Speech: speech normal Motor: muscle tone normal throughout Extrem General: normal to inspection and no pedal edema Objective Last Vital Signs Temp 36.5 C 01/01/22 16:16 Pulse 73 01/01/22 16:16 Resp 18 01/01/22 16:16 BP 122/79 01/01/22 16:16 Pulse Ox 99 01/01/22 16:16 Laboratory Results - last 24 hr 01/01/22 01/01/22 06:50 06:50 WBC 9.08 RBC 2.91 L Hgb 9.8 L Hct 29.8 L MCV 102 H MCH 33.7 H MCHC 32.9 RDW 18.3 H Plt Count 75 L MPV 12.0 H Immature Gran % 0.7 Neutrophils % 83.6 Lymphocytes % 9.6 Monocytes % 5.8 Eosinophils % 0.2 Basophils % 0.1 Nucleated RBC % 0.0 Absolute Neutrophils 7.59 H Absolute Lymphocytes 0.87 L Absolute Monocytes 0.53 Absolute Eosinophils 0.02 Absolute Basophils 0.01 RBC Morphology Normal Sodium 139 Potassium 4.0 Chloride 105 Carbon Dioxide 22.8 Anion Gap 11.2 H BUN 38 H Creatinine 2.3 H Estimated GFR/1.73 m2 29.05 Glucose 93 Calcium 8.7 Magnesium 1.4 L
[2022-01-02 00:22] VITALS: BP 120/76; PULSE 70; RESP 18; TEMP 36.1; O2SAT 98
[2022-01-02] MEDS: Nystatin 500000 UNITS/5 ML SUSP 5ML CUP PO ×5 (06:53→22:18)
[2022-01-02 07:31] LABS: Anion Gap 9.5 mmol/L (3-11); BUN 35 mg/dL (7-18); CO2 19.5 mmol/L (21.0-32.0); Calcium 9.1 mg/dL (8.5-10.1); Chloride 105 mmol/L (98-107); Estimated GFR 34.14 (mL/min/1.73m2); Glucose 99 mg/dL (74-106); Magnesium 1.7 mg/dL (1.8-2.4); Potassium 4.1 mmol/L (3.5-5.1); Sodium 134 mmol/L (136-145)
[2022-01-02 07:55] VITALS: BP 117/77; PULSE 97; RESP 16; TEMP 37.4; O2SAT 95
[2022-01-02] MEDS: Magnesium Oxide 400 MG TAB PO (08:10)
[2022-01-02] MEDS: Tacrolimus 0.5 MG CAP PO ×2 (08:11→20:34)
[2022-01-02] MEDS: predniSONE 10 MG TAB 30 MG PO (08:11)
[2022-01-02] MEDS: Metoprolol 12.5 MG TAB PO ×2 (08:14→20:34)
[2022-01-02] MEDS: FLUCONAZOLE 200 MG/100 ML BAG 100 MG IVPB (08:14)
--- NOTE | 2022-01-02 08:40 | PT.INIE ---
PT Notes Visit Reasons: Dehydration,Confusion Physical Therapy Inpatient Initial Evaluation Date: 01/02/22 Referring Doctor: Emilia Winters PT Orders: PT CONSULT: Eval and treat Precautions: Fall. Standard. Patient Profile/Admitting Diagnosis: Herber is a 61 yo male that presented to the ER on 12/29/21 for altered mental status and dehydration. He has complicated medical history with acute myelogenous leukemia with MANAGER RN CASE penetration. Other medical history and surgeries are listed in chart. Patient reports feeling able to return home at this time. Does note fatigue. PMHX: See EMR Social History/Home Situation: Lives with girlfriend, has 2 NINFA without rails. Reports using FWW and will use this for assist on steps. Equipment Owned/DME: [employer] Subjective: Cleared by nursing to see patient and patient is agreeable to PT. Patient is lying in bed at time of consult. Objective: General Observation: Notable forward head posture with thoracic kyphosis, slow in verbal responses like taking increased time to process. Left elbow proximal to anterior crease bothering him from blood draw or bandage reaction. Tremors in upper and lower extremities. Mental Status: A&O x3 Pain: No pain reported ROM: Right Upper Extremity: Shoulder Flexion 100 degrees. Shoulder abduction 100 degrees. Elbow flexion WFL. Wrist flexion WFL. Opening and closing of hand WFL. Left Upper Extremity: Shoulder Flexion 100 degrees. Shoulder abduction 100 degrees. Elbow flexion WFL. Wrist flexion WFL. Opening and closing of hand WFL. Right Lower Extremity: Hip flexion WFL. Hip abduction WFL. Knee flexion WFL. Ankle dorsiflexion WFL. Ankle plantarflexion WFL. Left Lower Extremity: Hip flexion WFL. Hip abduction WFL. Knee flexion WFL. Ankle dorsiflexion WFL. Ankle plantarflexion WFL. Strength: Right Upper Extremity: Shoulder flexors 5/5. Shoulder abductors 5/5. Shoulder ER 4/5. Shoulder IR 5/5. Elbow flexors 5/5. Elbow extensors 5/5. Nurses' Association Counselor strong. Left Upper Extremity: Shoulder flexors 5/5. Shoulder abductors 5/5. Shoulder ER 4/5. Shoulder IR 5/5. Elbow flexors 5/5. Elbow extensors 5/5. Nurses' Association Counselor strong. Right Lower Extremity: Hip flexors 4+/5. Hip abductors 4/5. Knee flexors 5-/5. Knee extensors 5-/5. Ankle dorsiflexors 4+/5. Ankle plantarflexors 4/5. Left Lower Extremity: Hip flexors 4+/5. Hip abductors 4/5. Knee flexors 5-/5. Knee extensors 5-/5. Ankle dorsiflexors 5/5. Ankle plantarflexors 4/5. Sensation: Intact as to pain and pressure on bilateral lower extremities. Bed Mobility/Transfers: Supine to sit: Independent Sit to supine: Independent Sit to stand: SBA Stand to sit: SBA Gait: Ambulated 100 ft x2 with stairs in middle and no rest using FWW, CGA Stairs: Ambulated with step to gait using bilateral hand rails 6 x2, 4 x4, CGA - safe with use of handrails; fatigued and mild shortness of breath following this Balance: Static Sitting: Normal Dynamic Sitting: Fair Static Standing: Fair Dynamic Standing: Poor Special Tests: Mobility Limitations Standardized Measure [facility] AM-PAC 6 clicks Basic Mobility Inpatient Short Form: Raw Score: 20 CMS Score: 36% Informed Consent/Education: Patient instructed in purpose of PT consult and plan of care. Assessment: Patient presents with clinical signs and symptoms consistent with current/admitting diagnoses that have resulted to mobility limitations, gait instability, generalized weakness, and impairment of motor control as demonstrated by the following impairment level findings: 1. Decreased strength to lower extremty major muscle groups 2. Impaired sitting/standing balance 3. Impaired activity tolerance 4. Limitation of joint range of motion in shoulders 5. Impairment in trunk posture Impairments are contributing to the following functional limitations: 1. Slower and less efficient with transfers 2. Inability to safely ambulate without assistive device and physical assistance 3. Increase completion time for mobility ADL performance 4. Increased fall risk 5. Inability to safely negotiate steps alone without rails Patient is assessed as a Moderate complexity based on the following: History: 61 year old male with impairment level findings, functional limitations, and past medical history as indicated above Examination: Demonstrable impairment in strength, balance, and mobility level with underlying impairments and functional limitations as documented above Presentation: Evolving Decision Making: Moderate complexity Goals: Goals x1 week 1. Supine-Sit: independent 2. Sit-Supine: independent 3. Sit-Stand: independent 4. Stand-Sit: independent 5. Bed-Chair: independent 6. Chair-Bed: independent 7. Independent gait on level surface with use of least restrictive device for at least 300 feet without report of pain nor dyspnea 8. Independent stair negotiation while holding onto bilateral rails for at least 10 steps without report of pain nor dyspnea 9. Independent with home exercise program 10. Good static and dynamic standing balance/tolerance Plan of Care/Treatment Plan: 1-2x/day, 7 days/week x 1 week. Plan of care has been reviewed with the EVAPORATOR REPAIRER providing the service under Physical Therapy direction. Initiate Physical Therapy intervention for strengthening, bed mobility, transfers, gait, stairs, balance training, and use of assistive device. Discharge Plan DISCHARGE RECOMMENDATIONS: SNF for continued rehabilitation, but will monitor condition and reassess TREATMENT CODE/TIME: 8:10-8:30 (20 minutes), [id number] Thank you for the opportunity to participate in the care of this patient. Vero Mcgovern, PT, DPT, OCS [facility] [place], [place]
--- NOTE | 2022-01-02 09:19 | CMPROGNOTE_ITS ---
- If Service Date Differs Date of service: 01/02/22 Time of Service: 09:19 Care Management Progress Note S/O: Herber was lying in bed when CM met with him. He was alert, oriented and easy to engage in conversation. He was covered up by 2 blankets and was still cold. CM provided him with a warm blanket and increased the temp in his room a bit, for comfort. Herber requires close monitoring for acute kidney injury and urinary retention. His acute confusion has resolved and he is working with PT. The plan continues to be, SNF placement for STR prior to returning home. SNF referral's are pending at [facility] and [facility]. CM will continue to support discharge planning needs. A: 61 year old male admitted to [facility] on 12/30/21 for Dehydration, confusion. P: Anticipate, Herber will discharge to SNF for STR vs. home with [facility] services when medically ready per provider. SNF referral's were sent to [facility] and [facility]. Transportation will be dependent on on patients disposition. CM will continue to support discharge planning needs.
--- NOTE | 2022-01-02 15:28 | PT.INNT ---
Date of service: 01/02/22 Time of Service: 14:29 PT Notes Visit Reasons: Dehydration,Confusion 01/02/2022 Patient deferred this afternoon's PT session. Will attempt to resume PT services tomorrow morning.
[2022-01-02 16:01] VITALS: BP 129/84; PULSE 77; RESP 19; TEMP 36.2; O2SAT 97
[2022-01-02] MEDS: Dronabinol 2.5 MG CAP 5 MG PO (16:30)
--- NOTE | 2022-01-02 17:40 | W.PM.PROGNOT ---
Date of Service Date of service: 01/02/22 Time of Service: 16:40 Assessment and Plan Assessment and plan (1) Acute dehydration: Status: Acute Assessment and plan: Improving however he may still need some further IV fluids. . BUN is down to 35 and creatinine is down to 2.0. Magnesium is slightly low at 1.7 which we will correct. (2) Acute kidney injury: Status: Acute Assessment and plan: as above. (3) Anemia: Status: Chronic Assessment and plan: Stable anemia (4) Leukemia: Status: Chronic Assessment and plan: Currently on acyclovir and tacrolimus. Apparently his acyclovir was inappropriately dosed. I suspect that he was put on a lower dose due to his acute renal failure. The dose should have been kept at 800 mg but the interval should have been increased. The stem cell transplant nurse called med/surg w/ recommendations on dosing and recommended checking tacrolimus level. I will order the level however it is a send out lab and probably won't be back for a few days. (5) BPH (benign prostatic hyperplasia): Status: Chronic (6) Atrial fibrillation: Status: Active Assessment and plan: rate and rhythm controlled; currently on flecainide and metoprolol Subjective Subjective Interval history since last seen: Mr. Iverson offers no acute complaints. Denies any nausea vomiting or abdominal pain. Oral intake is still poor. Exam Narrative Exam Narrative: Mr. Iverson is alert and oriented Lungs are clear to auscultation Heart regular rate and rhythm Abdomen soft nondistended nontender Extremities without cyanosis or edema Neuro exam grossly intact no focal cranial nerve deficits. Speech is clear. Normal range of motion. Objective Last Vital Signs Temp 36.2 C L 01/02/22 16:01 Pulse 77 01/02/22 16:01 Resp 19 01/02/22 16:01 BP 129/84 01/02/22 16:01 Pulse Ox 97 01/02/22 16:01 Laboratory Results - last 24 hr 01/02/22 06:36 Sodium 134 L Potassium 4.1 Chloride 105 Carbon Dioxide 19.5 L Anion Gap 9.5 BUN 35 H Creatinine 2.0 H Estimated GFR/1.73 m2 34.14 Glucose 99 Calcium 9.1 Magnesium 1.7 L
[2022-01-02] MEDS: MAGNESIUM SULFATE 2 GM/50 ML BAG IVPB (17:44)
[2022-01-02 23:20] VITALS: BP 113/73; PULSE 71; RESP 17; TEMP 36.2; O2SAT 99
[2022-01-03] MEDS: Nystatin 500000 UNITS/5 ML SUSP 5ML CUP PO ×3 (05:54→16:27)
[2022-01-03 07:05] LABS: Anion Gap 7.8 mmol/L (3-11); BUN 31 mg/dL (7-18); CO2 24.2 mmol/L (21.0-32.0); CREATININE 1.9 mg/dL (0.70-1.30); Calcium 8.9 mg/dL (8.5-10.1); Chloride 104 mmol/L (98-107); Estimated GFR 36.22 (mL/min/1.73m2); Glucose 105 mg/dL (74-106); Potassium 4.1 mmol/L (3.5-5.1); Sodium 136 mmol/L (136-145)
--- NOTE | 2022-01-03 07:08 | CMPROGNOTE_ITS ---
- If Service Date Differs Date of service: 01/03/22 Time of Service: 07:08 Care Management Progress Note S/O: Herber is waiting for SNF placement following discharge. He requires close monitoring for acute kidney injury and urinary retention. His acute confusion has resolved and he is working with PT, although he deferred PT yesterday afternoon. [facility] Additional referrals were sent to [facility] and [facility] yester day (). CM will continue to support discharge planning needs. A: 61 year old male admitted to [facility] on 12/30/21 for Dehydration, confusion. P: Anticipate, Herber will discharge to SNF for STR vs. home with [facility] services when medically ready per provider. [facility] Additional referrals were sent to [facility] and [facility] yesterday (01/02/22). Transportation will be dependent on on patients disposition. CM will continue to support discharge planning needs.
--- NOTE | 2022-01-03 07:08 | PDOC.CMPRO ---
- If Service Date Differs Date of service: 01/03/22 Time of Service: 07:08 Care Management Progress Note S/O: Herber is waiting for SNF placement following discharge. He requires close monitoring for acute kidney injury and urinary retention. His acute confusion has resolved and he is working with PT, although he deferred PT yesterday afternoon. [facility] Additional referrals were sent to [facility] and [facility] yesterday (). CM will continue to support discharge planning needs. A: 61 year old male admitted to [facility] on 12/30/21 for Dehydration, confusion. P: Anticipate, Herber will discharge to SNF for STR vs. home with [facility] services when medically ready per provider. SN[facility] are pending [facility] Additional referrals were sent to [facility] and [facility] yesterday (01/02/22). Transportation will be dependent on on patients disposition. CM will continue to support discharge planning needs.
[2022-01-03 08:33] VITALS: BP 145/92; PULSE 84; RESP 18; TEMP 37.3; O2SAT 96
[2022-01-03] MEDS: Tamsulosin 0.4 MG CAPCR PO (09:08)
[2022-01-03] MEDS: Magnesium Oxide 400 MG TAB PO (09:08)
[2022-01-03] MEDS: FLUCONAZOLE 200 MG/100 ML BAG 100 MG IVPB (09:08)
[2022-01-03] MEDS: Tacrolimus 0.5 MG CAP PO ×2 (09:08→21:33)
[2022-01-03] MEDS: Metoprolol 12.5 MG TAB PO ×2 (09:08→21:33)
[2022-01-03] MEDS: Acyclovir 400 MG TAB 800 MG PO ×2 (09:09→21:34)
[2022-01-03] MEDS: ACETAMINOPHEN 1,000 MG/100 ML BTL 400 MG IVPB (09:14)
[2022-01-03] MEDS: Lactated Ringers 1,000 ML 85 ML IV (09:49)
[2022-01-03] MEDS: predniSONE 10 MG TAB 30 MG PO (09:50)
[2022-01-03] MEDS: Lidocaine 1% Multi-Dose 50 ML VIAL (10:34)
[2022-01-03] MEDS: Normal Saline Flush 10 ML SYR (10:35)
[2022-01-03] MEDS: FAMOTIDINE 20 MG in Normal Saline 100 ML 400 MG IVPB (11:26)
[2022-01-03] MEDS: Dronabinol 2.5 MG CAP 5 MG PO ×2 (11:26→16:27)
[2022-01-03] MEDS: Normal Saline Flush 10 ML SYR IVP (11:28)
--- NOTE | 2022-01-03 14:31 | PT.INTREAT ---
Date of service: 01/03/22 Time of Service: 14:00 PT Notes Visit Reasons: Dehydration,Confusion Inpatient Physical Therapy Treatment Note [facility] Date: 01/03/2022 PRECAUTIONS: Activity as tolerated, confusion SUBJECTIVE: Herber is pleasant and agreeable to participating in PT. He reports that he is feeling better today and that he was able to eat a little. OBJECTIVE: PAIN: No c/o pain BED MOBILITY/TRANSFERS Supine-sit: Min A Sit-stand: CGA Stand-sit: CGA GAIT Assistive Device: FWW Weight bearing: Full Assist: CGA-SBA Distance: 200' x2 Deviation: Slow chanelle, shaky THEREX: Patient was instructed in an UE and LE strengthening program, completed in a seated position to include: ankle pumps, LAQ, hip flexion, hip abduction, shoulder flexion and shoulder horizontal abduction ASSESSMENT: Patient tolerated a progression in gait distance with FWW support and CGA-SBA. He continues to demonstrate global weakness and limited activity tolerance. PLAN: Continue with global strengthening and general conditioning for improved activity tolerance. TREATMENT CODE/TIME: 30 minutes; 18645 x2 (14:00)
--- NOTE | 2022-01-03 16:28 | W.PM.PROGNOT ---
Date of Service Date of service: 01/03/22 Time of Service: 15:28 Assessment and Plan Assessment and plan (1) Acute dehydration: Status: Acute Assessment and plan: Continues to need IV fluids. . BUN is down to 31 and creatinine is down to 1.9. Magnesium is up to 2.0 Will recheck BMP and CBC 01/04/[address] Justice (2) Acute kidney injury: Status: Acute Assessment and plan: as above. (3) Anemia: Status: Chronic Assessment and plan: Stable anemia H&H 9.8 and 29.8 (4) Leukemia: Status: Chronic Assessment and plan: Currently on acyclovir, dose adjusted and tacrolimus. (5) BPH (benign prostatic hyperplasia): Status: Chronic (6) Atrial fibrillation: Status: Active Assessment and plan: rate and rhythm controlled; currently on flecainide and metoprolol Subjective Subjective Patient reports: no new complaints Exam Narrative Exam Narrative: Alert and oriented Lungs are clear to auscultation Heart regular rate and rhythm Abdomen soft nondistended nontender Extremities without cyanosis or edema Neuro exam grossly intact no focal cranial nerve deficits. Speech is clear. Normal range of motion. Objective Last Vital Signs Temp 37.3 C 01/03/22 08:33 Pulse 84 01/03/22 08:33 Resp 18 01/03/22 08:33 BP 145/92 H 01/03/22 08:33 Pulse Ox 96 01/03/22 08:33 Laboratory Results - last 24 hr 01/03/22 06:33 Sodium 136 Potassium 4.1 Chloride 104 Carbon Dioxide 24.2 Anion Gap 7.8 BUN 31 H Creatinine 1.9 H Estimated GFR/1.73 m2 36.22 Glucose 105 Calcium 8.9 Magnesium 2.0 Reviewed Pertinent PMH: Yes Objective Narrative Objective Narrative: Electrolytes and kidney fxn improving, will continue IVF and recheck BMP & CBC in am
[2022-01-03 23:45] VITALS: BP 136/99; PULSE 99; RESP 18; TEMP 38.7; O2SAT 97
[2022-01-04] VITALS (7 sets, daily range): BP systolic 104–164; BP diastolic 70–84; PULSE 77–105; RESP 16–24; TEMP 37.2–38.7; O2SAT 95–99
--- NOTE | 2022-01-04 | DI.RAD_ITS ---
Exam(s) XR CHEST 2V PA LATERAL EXAM: XR CHEST 2V PA LATERAL CLINICAL HISTORY: fever TECHNIQUE: 2D digital imaging was performed of the chest. Images were obtained. PA and lateral v iews were obtained. COMPARISON: CR XR CHEST 2V PA LATERAL from 04/29/2021 FINDINGS: There is poor inspiration. MEDIASTINUM: Normal. HEART: Normal. PULMONARY VASCULATURE: Normal. LUNGS: Bilateral basilar infiltrates are seen. PLEURAL SPACE: There may be a small right pleural effusion. No left pleural effusion is seen. No pn eumothorax is present. BONE:Within normal limits for the patient's age. OTHER FINDINGS:Right-sided port is in good position. IMPRESSION: Bilateral basilar infiltrates. They may represent atelectasis or pneumonia. Please correlate clinic ally. DATA REPOSITORY: RADIATION DOSE DELIVERED:
[2022-01-04] MEDS: ACETAMINOPHEN 1,000 MG/100 ML BTL 400 MG IVPB ×2 (00:01→21:29)
[2022-01-04] MEDS: Nystatin 500000 UNITS/5 ML SUSP 5ML CUP PO ×5 (05:05→21:31)
[2022-01-04 06:22] LABS: Abs Immature Grans 0.04 10^3/uL (0.0-0.06); Absolute Eosinophil Count 0.04 10^3/uL (0.0-0.7); Absolute Lymphocyte Count 0.47 10^3/uL (1.2-3.4); Absolute Monocyte Count 0.53 10^3/uL (0.1-0.8); Eosinophils % 0.5; HGB 9.2 g/dL (13.5-17.5); Immature Grans % 0.5; Lymphocytes % 5.5; MCH 34.1 pg (27.0-33.0); MCHC 34.1 % (32.0-36.0); MCV 100 fL (80-95); MPV 12.1 fL (8.0-11.0); Monocytes % 6.2; Neutrophils % 87.3; RDW 17.2 % (11.8-14.1); RDW-SD 62.4 fL; WBC 8.58 10^3/uL (4.4-10.8)
[2022-01-04 06:30] LABS: Anion Gap 7.8 mmol/L (3-11); BUN 27 mg/dL (7-18); CO2 25.2 mmol/L (21.0-32.0); CREATININE 1.8 mg/dL (0.70-1.30); Calcium 8.7 mg/dL (8.5-10.1); Chloride 102 mmol/L (98-107); Estimated GFR 38.55 (mL/min/1.73m2); Glucose 122 mg/dL (74-106); Potassium 3.9 mmol/L (3.5-5.1); Sodium 135 mmol/L (136-145)
[2022-01-04 06:49] LABS: Platelet Count 57 10^3/uL (130-400)
[2022-01-04] MEDS: Acyclovir 400 MG TAB 800 MG PO ×2 (09:10→21:30)
[2022-01-04] MEDS: Tacrolimus 0.5 MG CAP PO ×2 (09:11→21:30)
[2022-01-04] MEDS: Magnesium Oxide 400 MG TAB PO (09:11)
[2022-01-04] MEDS: Normal Saline Flush 10 ML SYR IVP ×3 (09:11→17:17)
[2022-01-04] MEDS: Tamsulosin 0.4 MG CAPCR PO (09:11)
[2022-01-04] MEDS: predniSONE 10 MG TAB 30 MG PO (09:11)
[2022-01-04] MEDS: Metoprolol 12.5 MG TAB PO ×2 (09:11→21:30)
[2022-01-04] MEDS: FLUCONAZOLE 200 MG/100 ML BAG 100 MG IVPB (09:12)
[2022-01-04] MEDS: Dronabinol 2.5 MG CAP 5 MG PO ×2 (11:56→17:17)
[2022-01-04 12:01] LABS: Tacrolimus 3.8 ng/mL (See Note)
--- NOTE | 2022-01-04 12:07 | PT.INTREAT ---
PT Notes Visit Reasons: Dehydration,Confusion Inpatient Physical Therapy Treatment Note [facility] Date: 01/04/22 SUBJECTIVE: Herber offers no complaints. Quiet this am, not very talkative. Agreeable to a walk with me this am. OBJECTIVE: [] BED MOBILITY/TRANSFERS Supine-sit:S Sit-supine: S Sit-stand:S Stand-sit: S GAIT Assistive Device:FWW Weight bearing: FWB Assist: SBA Distance: 60'x2 ASSESSMENT: pt c/o being pooped today. Did not want to exercise. Required assistance getting dressed. PLAN: continue to work on his global strength and endurance to improve his mobility. TREATMENT CODE/TIME: 22 min beginning at [id number]. [id number]
--- NOTE | 2022-01-04 12:59 | PGE_ITS ---
Date of Service Date of service: 01/04/22 Time of Service: 11:59 Assessment and Plan Assessment and plan (1) Fever: Status: Acute Assessment and plan: in immunocompromised patient no obvious source of infection UA blood cultures and CXR pending on acyclovir/fluconazole will add cefepime day 1 while cultures pending (2) Acute kidney injury: Status: Resolved Assessment and plan: improved to baseline meds re-adjusted for new renal function avoid nephrotoxic drugs monitor closely (3) Acute confusion: Status: Resolved Assessment and plan: likely d/t fever/ possible infection cultures pending, started on broad spectrum antibiotics safety precautions (4) Leukemia: Status: Chronic Assessment and plan: followed by hem/onc at [facility] will follow outpatient (5) BPH (benign prostatic hyperplasia): Status: Chronic Assessment and plan: will monitor for retention. tamsulosin on hold. (6) Recurrent Clostridioides difficile diarrhea: Status: Acute Assessment and plan: tested negative. (7) Atrial fibrillation: Status: Active Assessment and plan: rate controlled. continue metoprolol and flecanide. (8) Discharge planning issues: Status: Acute Assessment and plan: anticipate discharge to senior care facility when medically stable. referrals were placed and will need to be placed on hold in setting of new temps and new infection work up. case management following. discussed with Dr Justice Subjective Subjective Patient reports: fever; denies tolerating a regular diet Interval history since last seen: increased confusion Exam Const General: cooperative, comfortable, frail appearing and ill appearing chronically Nutritional Appearance: average body habitus Orientation: alert, awake, oriented to person, oriented to place and confused [facility] Head: normal to inspection, normocephalic and atraumatic Mouth: mucous membranes dry and moist mucous membranes abnormal (dry mouth, thick dry alfaro layer of film on tongue) Throat: uvula midline Resp Effort & Inspection: normal respiratory effort Auscultation: diminished lung sounds Cardio Rate: regular rate Rhythm: regular rhythm GI Inspection: normal to inspection Palpation: soft and nontender Skin Rashes: no rashes Neuro General: patient alert, patient awake, patient oriented x3, tone normal, moves all extremities and no focal motor deficits Cognition: abnormal cognition Speech: speech normal Gait: other (has been on bedrest) Motor: muscle tone normal throughout Extrem General: normal to inspection and no pedal edema Objective Last Vital Signs Temp 37.4 C 01/04/22 12:44 Pulse 94 H 01/04/22 12:44 Resp 24 01/04/22 08:28 BP 113/79 01/04/22 12:44 Pulse Ox 97 01/04/22 12:44 Laboratory Results - last 24 hr 01/04/22 01/04/22 05:55 05:55 WBC 8.58 RBC 2.70 L Hgb 9.2 L Hct 27.0 L MCV 100 H MCH 34.1 H MCHC 34.1 D RDW 17.2 H Plt Count 57 L MPV 12.1 H Immature Gran % 0.5 Neutrophils % 87.3 Lymphocytes % 5.5 Monocytes % 6.2 Eosinophils % 0.5 Basophils % 0.0 Nucleated RBC % 0.0 Absolute Neutrophils 7.50 H Absolute Lymphocytes 0.47 L Absolute Monocytes 0.53 Absolute Eosinophils 0.04 Absolute Basophils 0.00 Sodium 135 L Potassium 3.9 Chloride 102 Carbon Dioxide 25.2 Anion Gap 7.8 BUN 27 H Creatinine 1.8 H Estimated GFR/1.73 m2 38.55 Glucose 122 H Calcium 8.7
--- NOTE | 2022-01-04 13:35 | DI.VRAD_ITS ---
PROCEDURE INFORMATION: Exam: XR Chest Exam date and time: 01/04/2022 1:10 PM Age: 61 years old Clinical indication: Fever TECHNIQUE: Imaging protocol: XR of the chest. Views: 2 views. COMPARISON: CT CHEST/ABD/PEL WO 12/29/2021 11:16 PM FINDINGS: Tubes, catheters and devices: Right-sided port is noted. Tip projects at the SVC Lungs: Lung volumes are low. There is bibasilar atelectasis. There is no overt CHF. Pleural spaces: Large pleural effusion, or pneumothorax is not seen Heart/Mediastinum: Heart, mediastinum are not significantly changed. Bones/joints: There is no acute bony abnormality IMPRESSION: Low lung volumes. Bibasilar atelectasis greater on the right. Dictated and Authenticated by: Sharon Winslow MD. Ordering:CELSA Nieto MD
[2022-01-04 13:39] LABS: Lactate 1.9 mmol/L (0.6-1.4)
[2022-01-04] MEDS: CEFEPIME 2 GM in Normal Saline 100 ML IVPB ×2 (14:32→21:30)
[2022-01-04] MEDS: Normal Saline 1,000 ML 125 ML IV ×3 (14:34→23:00)
[2022-01-04 14:48] LABS: Bilirubin Negative (Negative); Blood Moderate (Negative); Clarity Sl Cloudy (Clear); Glucose 100 mg/dL (Negative); Ketones Negative (Negative); Leukocyte Esterase Negative (Negative); Nitrite Negative (Negative); Specific Gravity >= 1.030 (1.005-1.025); Urobilinogen 0.2 EU/dL (Up TO 0.2); pH 5.5 (5-8)
[2022-01-04 14:58] LABS: Bacteria Negative HPF (Negative); Crystals Few Amorphous HPF (Negative); Epithelial Cells Negative HPF (Negative); Mucus Negative (Negative); RBC 0-2 HPF (0-2); WBC Negative HPF (0-5)
[2022-01-04 14:59] LABS: C & S Indicated? No
[2022-01-04] MEDS: Normal Saline 500 ML IV (17:18)
[2022-01-04 18:24] LABS: Lactate 0.9 mmol/L (0.6-1.4)
[2022-01-05] VITALS (9 sets, daily range): BP systolic 110–127; BP diastolic 70–79; PULSE 70–100; RESP 1–24; TEMP 36.7–37.9; O2SAT 95–96
[2022-01-05] MEDS: Nystatin 500000 UNITS/5 ML SUSP 5ML CUP PO ×4 (05:42→23:35)
[2022-01-05] MEDS: CEFEPIME 2 GM in Normal Saline 100 ML IVPB ×3 (05:42→23:35)
[2022-01-05] MEDS: Tacrolimus 0.5 MG CAP PO ×2 (07:54→20:38)
[2022-01-05] MEDS: Acyclovir 400 MG TAB 800 MG PO ×2 (07:54→20:38)
[2022-01-05] MEDS: FLUCONAZOLE 200 MG/100 ML BAG 100 MG IVPB (07:54)
[2022-01-05] MEDS: Magnesium Oxide 400 MG TAB PO (07:54)
[2022-01-05] MEDS: Tamsulosin 0.4 MG CAPCR PO (07:54)
[2022-01-05] MEDS: predniSONE 10 MG TAB 30 MG PO (07:54)
[2022-01-05] MEDS: Normal Saline 1,000 ML 125 ML IV (07:54)
[2022-01-05] MEDS: Metoprolol 12.5 MG TAB PO ×2 (07:55→20:38)
[2022-01-05] MEDS: Dronabinol 2.5 MG CAP 5 MG PO ×2 (11:12→17:14)
[2022-01-05] MEDS: Albuterol/Ipratropium 3 ML UPD VIAL UPD ×3 (11:17→20:39)
[2022-01-05] MEDS: FAMOTIDINE 20 MG in Normal Saline 100 ML 400 MG IVPB (11:49)
--- NOTE | 2022-01-05 11:57 | PT.INNT ---
PT Notes Visit Reasons: Dehydration,Confusion pt refused x2.
--- NOTE | 2022-01-05 16:16 | W.PM.PROGNOT ---
Date of Service Date of service: 01/05/22 Time of Service: 15:16 Assessment and Plan Assessment and plan (1) Fever: Status: Acute Assessment and plan: in immunocompromised patient, continues to be tacycardic, BP on a down trend, febrile, and now very confused, he is not alert to voice. He CXR pneumonia UA blood cultures pending on acyclovir/fluconazole will add vancomycin - getting sicker -while cultures pending (2) Acute kidney injury: Status: Resolved Assessment and plan: improved to baseline meds re-adjusted for new renal function avoid nephrotoxic drugs monitor closely (3) Acute confusion: Status: Resolved Assessment and plan: likely d/t fever/ possible infection cultures pending, started on broad spectrum antibiotics safety precautions (4) Leukemia: Status: Chronic Assessment and plan: followed by hem/onc at [facility] Case discussed w/ Dr. Quiros (heme/onc fellow @ [facility]) and he has discussed patient's case w/ his attending, Dr. Colby Suarez, and they have accepted the patient for transfer to [facility] pending bed availability. I then called transfer center and made a formal request for transfer and they confirmed acceptance but have no beds available tonight. They will take the patient tomorrow once a bed becomes available. (per discussion by Dr. Justice w/ Dr. Quiros and the [facility] transfer center). (5) BPH (benign prostatic hyperplasia): Status: Chronic Assessment and plan: will monitor for retention. tamsulosin on hold. (6) Recurrent Clostridioides difficile diarrhea: Status: Acute Assessment and plan: tested negative. (7) Atrial fibrillation: Status: Active Assessment and plan: rate controlled. continue metoprolol and flecanide. (8) Discharge planning issues: Status: Acute Assessment and plan: Consider transfer to [facility] secondary to decline; Discussed with Dr Quiros @ [facility] Hem/Onc regarding transfer twice today. referrals were placed and will need to be placed on hold in setting of new temps and new infection work up. case management following. discussed with Dr Justice Subjective Subjective Interval history since last seen: Change in mental status, sleepy Exam Const General: cooperative, comfortable, frail appearing and ill appearing chronically Nutritional Appearance: average body habitus Orientation: confused Limitations: altered mental status Other: unable to stay awake [facility] Head: normal to inspection, normocephalic and atraumatic Mouth: mucous membranes dry and moist mucous membranes abnormal (dry mouth, thick dry alfaro layer of film on tongue) Throat: uvula midline Resp Effort & Inspection: normal respiratory effort Auscultation: diminished lung sounds Cardio Rate: regular rate Rhythm: regular rhythm GI Inspection: normal to inspection Palpation: soft and nontender Skin Rashes: no rashes Neuro General: patient alert, patient awake, patient oriented x3, tone normal, moves all extremities and no focal motor deficits Cognition: abnormal cognition Speech: speech normal Gait: other (has been on bedrest) Motor: muscle tone normal throughout Extrem General: normal to inspection and no pedal edema Objective Last Vital Signs Temp 37.9 C H 01/05/22 16:03 Pulse 100 H 01/05/22 16:03 Resp 24 01/05/22 16:03 BP 111/73 01/05/22 16:03 Pulse Ox 96 01/05/22 16:03 Laboratory Results - last 24 hr 01/04/22 01/05/22 18:05 15:31 VBG Lactate 0.9 Patient ABO/Rh Cancelled Reviewed Pertinent PMH: Yes
[2022-01-05 17:08] LABS: Lactate 1.2 mmol/L (0.6-1.4)
[2022-01-05] MEDS: Normal Saline Flush 10 ML SYR IVP ×2 (17:14→20:43)
[2022-01-05] MEDS: Lactated Ringers 1,000 ML 125 ML IV (17:15)
[2022-01-05 17:30] LABS: TSH (W/Ref FT4) 0.81 uIU/mL (0.36-3.74)
[2022-01-05 17:37] LABS: Procalcitonin 0.4 ng/mL
[2022-01-05] MEDS: VANCOMYCIN/WATER (PEG) 1.25 GM/250 ML BAG IV (17:41)
[2022-01-05 17:57] LABS: Ammonia 14 umol/L (11-32)
[2022-01-05] MEDS: Hydrocortisone SOD SUC. 100 MG VIAL IVP (18:47)
[2022-01-05] MEDS: Lidocaine 2% Jelly 11 ML SYR UR (18:47)
[2022-01-05 19:07] LABS: Source Nasal/Nares
[2022-01-05 20:04] LABS: COVID-19 PCR Negative (Negative)
[2022-01-06] MEDS: Hydrocortisone SOD SUC. 100 MG VIAL 50 MG IVP ×3 (02:18→18:09)
[2022-01-06] MEDS: Lactated Ringers 1,000 ML 125 ML IV ×2 (03:28→14:46)
[2022-01-06 05:32] VITALS: BP 151/83; PULSE 91; RESP 16; TEMP 36.7; O2SAT 97
[2022-01-06 06:14] LABS: Abs Immature Grans 0.04 10^3/uL (0.0-0.06); Absolute Eosinophil Count 0.03 10^3/uL (0.0-0.7); Absolute Lymphocyte Count 0.25 10^3/uL (1.2-3.4); Absolute Monocyte Count 0.32 10^3/uL (0.1-0.8); Absolute Neutrophil Count 6.29 10^3/uL (1.2-6.7); Eosinophils % 0.4; HCT 22.2 % (40.0-50.0); HGB 7.4 g/dL (13.5-17.5); Immature Grans % 0.6; Lymphocytes % 3.6; MCH 34.3 pg (27.0-33.0); MCHC 33.3 % (32.0-36.0); MCV 103 fL (80-95); MPV 12.2 fL (8.0-11.0); Monocytes % 4.6; Neutrophils % 90.8; RBC 2.16 10^6/uL (4.36-5.78); RDW 16.9 % (11.8-14.1); RDW-SD 62.9 fL; WBC 6.93 10^3/uL (4.4-10.8)
[2022-01-06 06:27] LABS: ALT 13 U/L (16-63); AST 13 U/L (15-37); Albumin 2.1 g/dL (3.4-5.0); Alkaline Phosphatase 95 U/L (46-116); Anion Gap 11.2 mmol/L (3-11); BUN 26 mg/dL (7-18); Bilirubin, Total 0.4 mg/dL (0.2-1.0); CO2 21.8 mmol/L (21.0-32.0); CREATININE 1.6 mg/dL (0.70-1.30); Calcium 8.4 mg/dL (8.5-10.1); Chloride 110 mmol/L (98-107); Estimated GFR 44.16 (mL/min/1.73m2); Glucose 111 mg/dL (74-106); Potassium 3.7 mmol/L (3.5-5.1); Sodium 143 mmol/L (136-145); Total Protein 5.5 g/dL (6.4-8.2)
[2022-01-06 06:32] LABS: Platelet Count 44 10^3/uL (130-400)
[2022-01-06] MEDS: Nystatin 500000 UNITS/5 ML SUSP 5ML CUP PO (06:36)
[2022-01-06] MEDS: CEFEPIME 2 GM in Normal Saline 100 ML IVPB ×2 (06:36→15:04)
[2022-01-06 08:30] VITALS: BP 142/72; PULSE 85; TEMP 37.4; O2SAT 97
[2022-01-06] MEDS: FLUCONAZOLE 200 MG/100 ML BAG 100 MG IVPB (09:42)
[2022-01-06 10:30] VITALS: PULSE 90; RESP 1; RESP 22; RESP 8; O2SAT 97
[2022-01-06] MEDS: Albuterol/Ipratropium 3 ML UPD VIAL UPD (10:30)
[2022-01-06 10:31] VITALS: PULSE 88; RESP 1; RESP 24; RESP 8; O2SAT 99
[2022-01-06] MEDS: VANCOMYCIN/WATER (PEG) 1 GM/200 ML BAG IV (11:27)
[2022-01-06] MEDS: Normal Saline Flush 10 ML SYR IVP ×2 (12:23→18:10)
[2022-01-06 15:00] VITALS: BP 131/80; PULSE 102; RESP 18; TEMP 37.2; O2SAT 97
--- NOTE | 2022-01-06 15:21 | CMPROGNOTE_ITS ---
- If Service Date Differs Date of service: 01/06/22 Time of Service: 15:21 Care Management Progress Note S/O: Herber was lying in bed when CM met with him. There is a change in his mental status over the weekend. He is awake, but did not communicate. Per provider, Herber was accepted [place] [facility] [place] (again pending bed availability.) A: 61 year old male admitted to [facility] on 12/30/21 for Dehydration, confusion. P: Anticipate, Herber will discharge [place] [facility] [place], pending bed availability. He will transport via EMS arranged by RN transformer assembly supervisor. CM will continue to support discharge planning needs.
--- NOTE | 2022-01-06 15:21 | PDOC.CMPRO ---
- If Service Date Differs Date of service: 01/06/22 Time of Service: 15:21 Care Management Progress Note S/O: Herber was lying in bed when CM met with him. There is a change in his mental status over the weekend. He is awake, but did not communicate. Per provider, Herber was accepted to [facility] Hemotology/oncology (again pending bed availability.) A: 61 year old male admitted to [facility] on 12/30/21 for Dehydration, confusion. P: Anticipate, Herber will discharge to [facility] hemotology/Oncology services, pending bed availability. He will transport via EMS arranged by RN water and sewer systems supervisor. CM will continue to support discharge planning needs.
--- NOTE | 2022-01-06 16:13 | NT_ITS ---
Date of service: 01/06/22 Time of Service: 15:13 PT Notes Visit Reasons: Dehydration,Confusion 01/06/2022 Hold PT, per provider. Patient awaiting transfer to tertiary care hospital. Sari Bates, CREDIT RATING CHECKER
--- NOTE | 2022-01-06 16:37 | DSE_ITS ---
Date of service: 01/06/22 Time of Service: 15:38 DS: Diagnosis Discharge Diagnosis (1) Fever: Status: Acute Asessment and Plan: pneumonia on xray. blood cultures negative on cefepime and vancomycin, acyclovir and flunconazole (2) Acute kidney injury: Status: Resolved Asessment and Plan: creatinine at baseline and improved since admission from 3.3 to 1.6 today after IV hydration. (3) Acute confusion: Status: Acute Asessment and Plan: suspect d/t infection (4) Leukemia: Status: Chronic Asessment and Plan: follow by [facility] (5) BPH (benign prostatic hyperplasia): Status: Chronic Asessment and Plan: voiding (6) Recurrent Clostridioides difficile diarrhea: Status: Resolved Asessment and Plan: negative test (7) Atrial fibrillation: Status: Active Discharge Plan Disposition Patient Disposition: [facility] Condition: Stable Discharge Details Reason For Visit: Dehydration,Confusion Admit Date/Time: 12/30/21 00:55 Admit Provider: Graham Betancourt Attending Provider: Graham Betancourt Primary Care Provider: Beatriz Maurice Hospital Course Hospital Course: This is a 61 year old male patient with 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 Reportedly not eating or drinking or taking his medication as home. Work up in the ED shows no acute infection or medical condition to explain his decline other than dehydration. He was admitted to hospitalist services. His case was discussed with his oncology team and Dr Barlow was following labs and clinical picture daily as he was initially accepted for transfer. His medications were renally dosed. He was given IV fluids and his kidney function improved, his mental status returned to baseline and he was eating and drinking. At this point his transfer request was canceled/declined as he now was improved. It was recommended that he be discharged to a fpc facility for further strengthening and close supervision. While awaiting a facility to accept him, he declined once again, presenting with a new fever and altered mental status. He was cultured and started on cefepime. He case was discussed again with DR Barlow who was in agreement with work up and plan. His work up ultimately showed consolidation on chest xray, his blood pressure also dropped and he was started on stress dose steroids. Case was again discussed with [facility] [place], now Dr Quiros who will accept the patient in transfer. Vancomycin was also added. He has remained hemodynamically stable no requiring any pressors. His cultures are negative to date. he has no oxygen requirements, cough or resp distress or symptoms. He is awaiting a bed at [facility] [place]. platelets are down to 40 so no possibility of LP here. No active bleeding noted. He continues to remain lethargic and confused, not taking PO. discharge discussed with Dr Frances Home Meds and New Rx's Prescriptions: No Action tamsulosin 0.4 mg capsule 0.4 mg PO DAILY AM Label Comments: TAKE 1 CAPSULE BY MOUTH EVERY NIGHT DIRECTED famotidine 20 mg tablet 20 mg PO BID Label Comments: Take 2 tablet by mouth once a day metoprolol tartrate 25 mg tablet 12.5 mg PO BID Label Comments: TAKE 1/2 TABLET BY MOUTH EVERY 6 HOURS Dificid 200 mg Tablet 200 mg PO BID Qty: 17 0RF dronabinol 5 mg Capsule 5 mg PO BID Rx Instructions: administer before lunch and evening meal/dinner fluconazole 200 mg tablet 200 tab DAILY Label Comments: TAKE 2 TABLETS BY MOUTH DAILY tacrolimus 0.5 mg Capsule 0.5 mg BID acyclovir 400 mg tablet 800 tab BID Label Comments: TAKE 1 TABLET BY MOUTH TWICE DAILY flecainide 50 mg Tablet 50 mg BID aspirin 81 mg Tablet,Chewable 81 mg PO DAILY prednisone 10 mg tablet 30 mg PO DAILY Label Comments: TAKE THREE TABLETS BY MOUTH EVERY MORNING WITH FOOD Discharge Instructions Activity:: Activity as Tolerated Diet:: npo DS: Summary Time Spent with Patient providing and/or coordinating discharge services: Greater than 30 minutes Status at Discharge Functional status at discharge: bed bound Overall status at discharge: patient is not back to baseline Mental Status: other (confused, lethargic) Speech and Movement: other Mood: other (confused, lethargic) Affect: other Exam Const General: cooperative, comfortable, frail appearing and ill appearing chronically Nutritional Appearance: average body habitus Orientation: confused Limitations: altered mental status Other: unable to stay awake [facility] Head: normal to inspection, normocephalic and atraumatic Mouth: mucous membranes dry and moist mucous membranes abnormal (dry mouth, thick dry alfaro layer of film on tongue) Throat: uvula midline Resp Effort & Inspection: normal respiratory effort Auscultation: diminished lung sounds Cardio Rate: regular rate Rhythm: regular rhythm GI Inspection: normal to inspection Palpation: soft and nontender Skin Rashes: no rashes Neuro General: patient alert, patient awake, patient oriented x3, tone normal, moves all extremities and no focal motor deficits Cognition: abnormal cognition Speech: speech normal Gait: other (has been on bedrest) Motor: muscle tone normal throughout Extrem General: normal to inspection and no pedal edema Psych Mental Status: other (confused, lethargic) Speech and Movement: other Mood: other (confused, lethargic) Affect: other DS: Data Vitals/I&O Vitals and I&O: Vital Signs Temperature 37.4 C 01/06/22 08:30 Temperature Source Temporal Artery Scan 01/06/22 08:30 Pulse 88 01/06/22 10:31 Pulse Rhythm Regular 01/06/22 12:54 Respiratory Rate 24 01/06/22 10:31 Respiratory Effort Non-Labored 01/06/22 12:54 Respiratory Depth Normal 01/06/22 12:54 Respiratory Pattern Normal 01/06/22 12:54 Blood Pressure 142/72 H 01/06/22 08:30 Pulse Oximetry 99 01/06/22 10:31 Oxygen Delivery Method Room Air 01/06/22 10:30 Oxygen Flow Rate 0 01/06/22 10:30 Pain Level 0 01/06/22 05:32 Comment 01/04/22 23:46 Intake & Output 01/05/22 01/06/22 01/06/22 23:59 11:59 23:59 Intake Total 502 / 1702 3300 / 3600 300 / 3600 Output Total 250 / 1550 250 / 450 200 / 450 Balance 252 / 152 3050 / 3150 100 / 3150 Intake: IV 452 / 1652 3300 / 3600 300 / 3600 Oral 50 / 50 0 / 0 0 / 0 Output: Stool 250 / 1400 250 / 450 200 / 450 Other: Urine Color Yellow Yellow Comment pT voided while nursing was attempting to catheterize patient dry voided on the bed Stool Occult Blood Negative Voiding Methods Diaper Incontinent Incontinent Data Completed and Pending Labs on day of discharge: Labs from last 24 hours 01/06/22 01/06/22 01/06/22 12:30 05:30 05:30 WBC 6.93 RBC 2.16 L Hgb 7.4 L Hct 22.2 L MCV 103 H MCH 34.3 H MCHC 33.3 D RDW 16.9 H Plt Count 44 L MPV 12.2 H Immature Gran % 0.6 Neutrophils % 90.8 Lymphocytes % 3.6 Monocytes % 4.6 Eosinophils % 0.4 Basophils % 0.0 Nucleated RBC % 0.0 Absolute Neutrophils 6.29 Absolute Lymphocytes 0.25 L Absolute Monocytes 0.32 Absolute Eosinophils 0.03 Absolute Basophils 0.00 VBG Lactate 1.0 Sodium Potassium Chloride Carbon Dioxide Anion Gap BUN Creatinine Estimated GFR/1.73 m2 Glucose Calcium Total Bilirubin AST ALT Alkaline Phosphatase Ammonia Total Protein Albumin Procalcitonin TSH COVID-19 Source SARS-CoV-2 (PCR) Urine Legionella Ag Ur Strep pneumoniae Ag Pending 01/06/22 01/05/22 01/05/22 05:30 18:42 17:45 WBC RBC Hgb Hct MCV MCH MCHC RDW Plt Count MPV Immature Gran % Neutrophils % Lymphocytes % Monocytes % Eosinophils % Basophils % Nucleated RBC % Absolute Neutrophils Absolute Lymphocytes Absolute Monocytes Absolute Eosinophils Absolute Basophils VBG Lactate Sodium 143 Potassium 3.7 Chloride 110 H Carbon Dioxide 21.8 Anion Gap 11.2 H BUN 26 H Creatinine 1.6 H Estimated GFR/1.73 m2 44.16 Glucose 111 H Calcium 8.4 L Total Bilirubin 0.4 AST 13 L ALT 13 L Alkaline Phosphatase 95 Ammonia 14 Total Protein 5.5 L Albumin 2.1 L Procalcitonin TSH COVID-19 Source Nasal/Nares SARS-CoV-2 (PCR) Negative Urine Legionella Ag Ur Strep pneumoniae Ag 01/05/22 01/05/22 01/05/22 16:55 16:55 12:30 WBC RBC Hgb Hct MCV MCH MCHC RDW Plt Count MPV Immature Gran % Neutrophils % Lymphocytes % Monocytes % Eosinophils % Basophils % Nucleated RBC % Absolute Neutrophils Absolute Lymphocytes Absolute Monocytes Absolute Eosinophils Absolute Basophils VBG Lactate 1.2 Sodium Potassium Chloride Carbon Dioxide Anion Gap BUN Creatinine Estimated GFR/1.73 m2 Glucose Calcium Total Bilirubin AST ALT Alkaline Phosphatase Ammonia Total Protein Albumin Procalcitonin 0.4 TSH 0.81 COVID-19 Source SARS-CoV-2 (PCR) Urine Legionella Ag Pending Ur Strep pneumoniae Ag 01/05/22 19:30 Blood Blood Culture - Pending 01/05/22 16:55 Blood Blood Culture - Pending Preliminary micro results at discharge 01/04/22 13:42 Blood Culture - Preliminary Blood NO GROWTH 48 HOURS 01/04/22 13:25 Blood Culture - Preliminary Blood NO GROWTH 48 HOURS 01/05/22 19:11 Urine Culture - Preliminary Urine - Cath Not Specified Gram Positive Amanda 01/05/22 19:30 Blood Culture - Pending Blood 01/05/22 16:55 Blood Culture - Pending Blood PFSH All Active Problems (Updated 01/06/22 @ 18:08 by Emilia Winters NP) Fever (Acute) Discharge planning issues (Acute) Palliative care patient (Acute) Palliative care patient (Acute) Acute confusion (Acute) Acute dehydration (Acute) Leukemia (Chronic) BPH (benign prostatic hyperplasia) (Chronic) Diplopia (Acute) Hypomagnesemia (Acute) Binocular vision disorder with diplopia (Acute) Back pain (Acute) Atrial fibrillation (Active 12/04/12) Hx of a fib in 2004 and 2008 wiht eletrical cardioversion. Echocardiogram 2008 showieng EF of 75%, mild LVH, no valvular abnormalities. Flecanide Rx. History of surgery (Active) Colonoscopy 07/06/2011 with tubular adenoma. S/P repair of Achilles tendon. S/P tonsillectomy and adenoidectomy. Gastroesophageal reflux disease (Active) Hx of colonic polyps (Acute) Anemia (Chronic) Leukocytosis (Acute) Medical History GERD (gastroesophageal reflux disease) History of colon polyps Palliative care patient Paroxysmal atrial fibrillation Surgical History Colonoscopy - IV Sedation Repair, Tendon or Muscle achilles Tonsillectomy and adenoidectomy Social History Smoking/Tobacco Use Status: Never Smoking risk assessment performed?: Yes Alcohol Intake: current Alcohol Intake frequency: holidays/special occasions only Drug use: Never Do you feel safe at home: Yes Do you feel safe in your relationship?: Yes
[2022-01-06] MEDS: Lidocaine 2% Jelly 11 ML SYR UR (17:55)
[2022-01-06] MEDS: LORazepam 2 MG/ML VIAL 0.5 MG IVP (18:10)
[2022-01-06 19:58] VITALS: RESP 1; RESP 8
[2022-01-06 23:35] LABS: Legionella Ag Detection Urine Negative (Negative)
== END 2022-01-06 20:19 | disposition short-term general hospital (02) | DRG 682 ==
LOC: ER 12-30 01:52 → MS 12-30 02:00
PROVIDERS: Internal Medicine; Nurse Practitioner Acute Care; Nurse Practitioner Family; Admitting Provider General Practice; Emergency Provider Student in an Organized Health Care Education/Training Program; PCP Physician Assistant Medical; Visit Provider General Practice
DX: N17.9 Acute kidney failure, unspecified; J18.9 Pneumonia, unspecified organism; G92.8 Other toxic encephalopathy; D84.821 Immunodeficiency due to drugs; Z94.84 Stem cells transplant status; E86.0 Dehydration; I48.91 Unspecified atrial fibrillation; Z93.3 Colostomy status; Z79.899 Other long term (current) drug therapy; N40.0 Benign prostatic hyperplasia without lower urinary tract symptoms; C92.00 Acute myeloblastic leukemia, not having achieved remission; K21.9 Gastro-esophageal reflux disease without esophagitis; K12.30 Oral mucositis (ulcerative), unspecified; I95.9 Hypotension, unspecified; Z45.2 Encounter for adjustment and management of vascular access device
CPT/HCPCS: 36415; 71250; 80048; 80053; 82805; 83690; 84145; 85027; 86900; 86901; 87040; 87449; 87493; 87635; 87637; 93005; 96361; 96374; 96375; 97162; 97530; 99285; 70450; 71046; 74176; 80197; 81003; 81015; 82140; 83605; 83735; 84443; 84484; 85025; 87086; 87899; 93010; 94640; 99222; 99231; 99232; 99233; 99239; J0131; J0133; J1450; J1720; J2060; J2250; J3490; J7512; J7620

== ENCOUNTER 2022-01-02 03:11 | Outpatient (RCR) | payer MEDICAID, SELFPAY ==
[2021-12-26] MEDS: Normal Saline Flush 10 ML SYR IVP (13:18)
[2021-12-26 13:34] LABS: ALT 24 U/L (16-63); AST 17 U/L (15-37); Albumin 3.7 g/dL (3.4-5.0); Alkaline Phosphatase 182 U/L (46-116); Anion Gap 11.7 mmol/L (3-11); BUN 40 mg/dL (7-18); Bilirubin, Total 0.4 mg/dL (0.2-1.0); CO2 20.3 mmol/L (21.0-32.0); CREATININE 2.6 mg/dL (0.70-1.30); Calcium 9.2 mg/dL (8.5-10.1); Chloride 106 mmol/L (98-107); Estimated GFR 25.22 (mL/min/1.73m2); Glucose 123 mg/dL (74-106); Magnesium 1.8 mg/dL (1.8-2.4); Potassium 4.3 mmol/L (3.5-5.1); Sodium 138 mmol/L (136-145); Total Protein 7.3 g/dL (6.4-8.2)
== END 2022-01-14 23:59 | disposition home or self-care (01) ==
LOC: INF 03:11
PROVIDERS: PCP Physician Assistant Medical; Visit Provider Nurse Practitioner
DX: Z45.2 Encounter for adjustment and management of vascular access device (principal); E83.42 Hypomagnesemia; N17.9 Acute kidney failure, unspecified; Z86.19 Personal history of other infectious and parasitic diseases; Z93.3 Colostomy status; C95.01 Acute leukemia of unspecified cell type, in remission; D63.0 Anemia in neoplastic disease; R53.1 Weakness; Z94.81 Bone marrow transplant status; E86.0 Dehydration
CPT/HCPCS: 36591; 80053; 83735

== ENCOUNTER 2022-02-13 02:08 | Outpatient (RCR) | payer MEDICAID, SELFPAY ==
[2022-02-05] MEDS: Normal Saline Flush 10 ML SYR IVP (08:15)
[2022-02-05 08:27] LABS: Abs Immature Grans 0.05 10^3/uL (0.0-0.06); Absolute Basophil Count 0.01 10^3/uL (0.0-0.2); Absolute Eosinophil Count 0.01 10^3/uL (0.0-0.7); Absolute Lymphocyte Count 0.88 10^3/uL (1.2-3.4); Absolute Monocyte Count 0.37 10^3/uL (0.1-0.8); Absolute Neutrophil Count 3.98 10^3/uL (1.2-6.7); Basophils % 0.2; Eosinophils % 0.2; HCT 22.4 % (40.0-50.0); HGB 7.6 g/dL (13.5-17.5); Immature Grans % 0.9; Lymphocytes % 16.6; MCH 36.7 pg (27.0-33.0); MCHC 33.9 % (32.0-36.0); MCV 108 fL (80-95); MPV 11.3 fL (8.0-11.0); Neutrophils % 75.1; Nucleated RBC 0.9 % (0.0-0.3); RBC 2.07 10^6/uL (4.36-5.78); RDW-SD 73.3 fL
[2022-02-05 08:50] LABS: Anisocytosis 2+; Diff Comment RBC Morph Reviewed; Macrocytosis 1+; Polychromasia Present
[2022-02-05 08:51] LABS: ALT 24 U/L (16-63); AST 18 U/L (15-37); Alkaline Phosphatase 77 U/L (46-116); Anion Gap 9.5 mmol/L (3-11); BUN 63 mg/dL (7-18); Bilirubin, Total 0.4 mg/dL (0.2-1.0); CO2 23.5 mmol/L (21.0-32.0); CREATININE 3.1 mg/dL (0.70-1.30); Calcium 8.7 mg/dL (8.5-10.1); Chloride 100 mmol/L (98-107); Estimated GFR 20.59 (mL/min/1.73m2); Glucose 91 mg/dL (74-106); Magnesium 1.8 mg/dL (1.8-2.4); Potassium 5.7 mmol/L (3.5-5.1); Sodium 133 mmol/L (136-145); Total Protein 5.6 g/dL (6.4-8.2)
[2022-02-05 08:53] LABS: Platelet Count 58 10^3/uL (130-400)
[2022-02-06 09:53] LABS: IgG 642 mg/dL (610-1,616)
== END 2022-02-13 23:59 | disposition home or self-care (01) ==
LOC: INF 02:08
PROVIDERS: Internal Medicine; PCP Physician Assistant Medical; Visit Provider Nurse Practitioner
DX: Z45.2 Encounter for adjustment and management of vascular access device (principal); Z94.81 Bone marrow transplant status; E83.42 Hypomagnesemia; Z86.19 Personal history of other infectious and parasitic diseases; Z93.3 Colostomy status; C95.01 Acute leukemia of unspecified cell type, in remission; D63.0 Anemia in neoplastic disease; R53.1 Weakness; E86.0 Dehydration
CPT/HCPCS: 36591; 80053; 82784; 83735; 85025

== ENCOUNTER 2022-02-13 13:27 | Inpatient (IN) | payer MEDICAID, SELFPAY ==
[2022-02-13] VITALS (114 sets, daily range): BP systolic 97–164; BP diastolic 63–143; PULSE 71–219; RESP 8–41; TEMP 36.7–37.4; O2SAT 96–100
--- NOTE | 2022-02-13 13:15 | DI.RAD_ITS ---
Exam(s) XR PORTABLE CHEST AP EXAM: XR PORTABLE CHEST AP CLINICAL HISTORY: weakness, low grade fever TECHNIQUE: 2D digital imaging was performed of the chest. One image was obtained. An AP view was ob tained. COMPARISON: No exams were available for comparison FINDINGS: MEDIASTINUM: Normal. HEART: Normal. PULMONARY VASCULATURE: Normal. LUNGS: Clear. PLEURAL SPACE: There is blunting of the right costophrenic angle which may represent a small pleural effusion. BONE:Within normal limits for the patient's age. OTHER FINDINGS:The tip of the indwelling right central venous catheter is in good position at the raymon ction of the superior vena cava and right atrium. IMPRESSION: There is blunting of the right costophrenic angle which may represent a small pleural effusion. DATA REPOSITORY: RADIATION DOSE DELIVERED:
--- NOTE | 2022-02-13 13:15 | RT.EKG_ITS ---
APPROVED REPORT Exam: Resting ECG Reason for Exam: WEAKNESS Patient Location: E HR:92 bpm ECG Measurements Heart Rate 92 AXIS MI 146 P 36 QRSd 92 QRS 25 QT 375 T 75 QTc 464 Conclusion Sinus rhythm...normal P axis, V-rate 60- 99
[2022-02-13 13:44] LABS: Abs Immature Grans 0.11 10^3/uL (0.0-0.06); Absolute Eosinophil Count 0.01 10^3/uL (0.0-0.7); Absolute Lymphocyte Count 0.38 10^3/uL (1.2-3.4); Absolute Monocyte Count 0.43 10^3/uL (0.1-0.8); Absolute Neutrophil Count 5.37 10^3/uL (1.2-6.7); Eosinophils % 0.2; HGB 7.2 g/dL (13.5-17.5); Immature Grans % 1.7; MCH 37.5 pg (27.0-33.0); MCHC 34.4 % (32.0-36.0); MCV 109 fL (80-95); MPV 11.1 fL (8.0-11.0); Monocytes % 6.8; Neutrophils % 85.3; RBC 1.92 10^6/uL (4.36-5.78); RDW 17.9 % (11.8-14.1); RDW-SD 70.6 fL
[2022-02-13] MEDS: Normal Saline 1,000 ML 1000 ML IV ×2 (13:45→15:01)
[2022-02-13 13:47] LABS: Lactate 8.1 mmol/L (0.6-1.4)
--- NOTE | 2022-02-13 13:48 | ED.GENADUL_ITS ---
Discharge Plan Disposition Patient Disposition: [facility] INPATIENT Condition: Improving Discharge Details Chief Complaint: Fever Clinical Impression: Lactic acidosis Primary Care Provider: Beatriz Maurice ED Provider: Mikael Scott Home Meds and New Rx's Prescriptions: No Action tamsulosin 0.4 mg capsule 0.4 mg PO DAILY AM Label Comments: TAKE 1 CAPSULE BY MOUTH EVERY NIGHT DIRECTED famotidine 20 mg tablet 40 mg PO DAILY Label Comments: Take 2 tablet by mouth once a day metoprolol tartrate 25 mg tablet 12.5 mg PO DAILY Label Comments: TAKE 1/2 TABLET BY MOUTH EVERY 6 HOURS dronabinol 5 mg Capsule 5 mg PO BID Rx Instructions: administer before lunch and evening meal/dinner fluconazole 200 mg tablet 2 tab PO DAILY Label Comments: TAKE 2 TABLETS BY MOUTH DAILY acyclovir 400 mg tablet 800 tab PO BID Label Comments: TAKE 1 TABLET BY MOUTH TWICE DAILY flecainide 50 mg Tablet 50 mg PO BID aspirin 81 mg Tablet,Chewable 81 mg PO DAILY prednisone 10 mg tablet 30 mg PO DAILY Label Comments: TAKE THREE TABLETS BY MOUTH EVERY MORNING WITH FOOD tacrolimus 0.5 mg capsule See Rx Instructions .ROUTE .COMPLEX Label Comments: TAKE 2 CAPSULES ORALLY IN MORNING AND 3 CAPSULES AT NIGHT Rx Instructions: 0.5 mg in AM, 1 mg PM Medical Decision Making 61-year-old male presents with complaint of 10 minutes of anterior chest tightness with tingling of his hands at home. He has been scheduled for an outpatient lab draw by his [facility] care team and was getting ready to drive to the hospital. He states the episode dissipated on its own and he now feels nearly 100% improved. He states he does have daily chills and developed a chill again today. 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 He is status post bone marrow transplant for which he is immunosuppressed with tacrolimus. He has been struggling with dehydration since having an ostomy placed. He has had toxic megacolon and C. difficile colitis for which he is being treated with Fidaxomicin. He was admitted to [facility] at the end of December for encephalopathy with dehydration and acute kidney injury, as well as pneumonia. Patient arrives to ER awake, alert and in no acute distress. Temp is 36.7 with a pulse of 90 and blood pressure in the 160's systolic initially and then remeasured at 128/70. Patient is at risk for occult infection, developing sepsis, dehydration, electrolyte abnormality. He had IV access established, labs obtained and fluids initiated. Patient had an initial venous lactate of 8, recheck 7.0. Sodium was 133 with potassium 4.9, BUN 37 with creatinine 2.3. Patient has had a chronic anemia and today with a white count of 6, hemoglobin 7.2, hematocrit 20.9, platelets of 57. Initial troponin is 59. Urinalysis unremarkable. Chest x-ray reveals blunting of the right costophrenic angle may represent a small pleural effusion. As patient is complicated and well-known by [facility] I discussed his case with the on-call heme-onc fellow. She recommends ongoing treatment for possible sepsis. We agree Zosyn is adequate coverage for him. (note that cefepime previously caused mental status changes). We will add EBV, CMV, tick panel. Blood cultures have been sent. We reviewed the patient's medications including acyclovir 800 mg twice daily, aspirin 81 mg oral, flecainide 50 mg twice daily, Diflucan 200 mg daily, metoprolol 25 mg daily, Prograf 0.5 mg in the a.m. 1 mg in p.m., vancomycin 125 mg twice daily, and Eliquis 5 mg twice daily which is recently started for DVT. After 2 L of fluid, the patient's lactic improved to 4.6. The patient's borderline renal function make contrast infused CT scan unwise in my opinion. He is already anticoagulated. Case discussed with the hospitalist. Lab Data Lab results reviewed: Yes I reviewed the patient's lab results. Labs: Laboratory Results - last 24 hr 02/13/22 02/13/22 02/13/22 13:27 13:27 13:27 WBC 6.30 RBC 1.92 L Hgb 7.2 L Hct 20.9 L* MCV 109 H MCH 37.5 H MCHC 34.4 RDW 17.9 H Plt Count 57 L MPV 11.1 H Immature Gran % 1.7 Neutrophils % 85.3 Lymphocytes % 6.0 Monocytes % 6.8 Eosinophils % 0.2 Basophils % 0.0 Nucleated RBC % 1.0 H Absolute Neutrophils 5.37 Absolute Lymphocytes 0.38 L Absolute Monocytes 0.43 Absolute Eosinophils 0.01 Absolute Basophils 0.00 RBC Morphology See Below Macrocytosis 2+ VBG Lactate 8.1 H* Sodium 133 L Potassium 4.9 Chloride 102 Carbon Dioxide 15.8 L Anion Gap 15.2 H BUN 37 H Creatinine 2.3 H Estimated GFR/1.73 m2 29.05 Glucose 94 Calcium 8.8 Magnesium 1.2 L Total Bilirubin 0.5 AST 19 ALT 25 Alkaline Phosphatase 63 Troponin I 59 Total Protein 5.4 L Albumin 3.0 L Urine Color Urine Clarity Urine pH Ur Specific [place] Urine Protein Urine Ketones Urine Blood Urine Nitrite Urine Bilirubin Urine Urobilinogen Ur Leukocyte Esterase Urine Glucose COVID-19 Source SARS-CoV-2 (PCR) Influenza Type A (PCR) Influenza Type B (PCR) RSV (PCR) 02/13/22 02/13/22 02/13/22 13:46 13:51 13:55 WBC RBC Hgb Hct MCV MCH MCHC RDW Plt Count MPV Immature Gran % Neutrophils % Lymphocytes % Monocytes % Eosinophils % Basophils % Nucleated RBC % Absolute Neutrophils Absolute Lymphocytes Absolute Monocytes Absolute Eosinophils Absolute Basophils RBC Morphology Macrocytosis VBG Lactate 7.0 H* Sodium Potassium Chloride Carbon Dioxide Anion Gap BUN Creatinine Estimated GFR/1.73 m2 Glucose Calcium Magnesium Total Bilirubin AST ALT Alkaline Phosphatase Troponin I Total Protein Albumin Urine Color Urine Clarity Urine pH Ur Specific [place] Urine Protein Urine Ketones Urine Blood Urine Nitrite Urine Bilirubin Urine Urobilinogen Ur Leukocyte Esterase Urine Glucose COVID-19 Source Cancelled Nasal/Nares SARS-CoV-2 (PCR) Cancelled Negative Influenza Type A (PCR) Cancelled Influenza Type B (PCR) Cancelled RSV (PCR) Cancelled 02/13/22 15:02 WBC RBC Hgb Hct MCV MCH MCHC RDW Plt Count MPV Immature Gran % Neutrophils % Lymphocytes % Monocytes % Eosinophils % Basophils % Nucleated RBC % Absolute Neutrophils Absolute Lymphocytes Absolute Monocytes Absolute Eosinophils Absolute Basophils RBC Morphology Macrocytosis VBG Lactate Sodium Potassium Chloride Carbon Dioxide Anion Gap BUN Creatinine Estimated GFR/1.73 m2 Glucose Calcium Magnesium Total Bilirubin AST ALT Alkaline Phosphatase Troponin I Total Protein Albumin Urine Color Yellow Urine Clarity Clear Urine pH 5.5 Ur Specific [place] 1.015 Urine Protein Negative Urine Ketones Negative Urine Blood Negative Urine Nitrite Negative Urine Bilirubin Negative Urine Urobilinogen 0.2 Ur Leukocyte Esterase Negative Urine Glucose Negative COVID-19 Source SARS-CoV-2 (PCR) Influenza Type A (PCR) Influenza Type B (PCR) RSV (PCR) HPI General Mode of arrival: EMS . Date/Time Provider Initiated Documentation: 02/13/22 13:57 . Limitations to Documentation: no limitations . Information obtained by: patient and EMS . History of Present Illness 61 year old M presents to the emergency department with the chief complaint of Transient chest discomfort at home, now improved, described as mild, Quality is described as dull, and is localized to the chest. Patient reports no radiation. Patient started experiencing this hour(s) and it has been now resolved. No relieving factors improve symptom(s), No exacerbating factors reported . Patient notes other (Had a chill but this is normal he states. Denies fever. No change to bowel.). Patient did receive the following treatments prior to arrival, none Related Data Home Medications Medication Instructions Recorded Confirmed tamsulosin 0.4 mg capsule 0.4 mg PO DAILY AM 04/29/21 02/13/22 famotidine 20 mg tablet 40 mg PO DAILY 07/07/21 02/13/22 metoprolol tartrate 25 mg tablet 12.5 mg PO DAILY 07/07/21 02/13/22 acyclovir 400 mg tablet 800 tab PO BID 12/30/21 02/13/22 aspirin 81 mg chewable tablet 81 mg PO DAILY 12/30/21 02/13/22 dronabinol 5 mg capsule 5 mg PO BID 12/30/21 02/13/22 flecainide 50 mg tablet 50 mg PO BID 12/30/21 02/13/22 fluconazole 200 mg tablet 2 tab PO DAILY 12/30/21 02/13/22 prednisone 10 mg tablet 30 mg PO DAILY 12/30/21 02/13/22 tacrolimus 0.5 mg capsule, See Rx Instructions .Route .COMPLEX 02/13/22 02/13/22 immediate-release Allergies Allergy/AdvReac Type Severity Reaction Status Date / Time metoprolol AdvReac skips in Unverified 02/13/22 14:09 heart rate all sugar substitutes AdvReac Uncoded 02/13/22 14:09 General Stated Complaint: Fever DANE: 2 Review of Systems Narrative: No cough. Frequently dehydrated. Has daily chills. 8 systems reviewed and otherwise neg PFSH All Active Problems (Updated 02/13/22 @ 17:30 by Mikael Scott MD) Lactic acidosis (Acute) Fever (Acute) Acute confusion (Acute) Acute dehydration (Acute) Leukemia (Chronic) BPH (benign prostatic hyperplasia) (Chronic) Diplopia (Acute) Hypomagnesemia (Acute) Binocular vision disorder with diplopia (Acute) Back pain (Acute) Atrial fibrillation (Active 12/04/12) Hx of a fib in 2004 and 2008 wiht eletrical cardioversion. Echocardiogram 2008 showieng EF of 75%, mild LVH, no valvular abnormalities. Flecanide Rx. History of surgery (Active) Colonoscopy 07/06/2011 with tubular adenoma. S/P repair of Achilles tendon. S/P tonsillectomy and adenoidectomy. Gastroesophageal reflux disease (Active) Hx of colonic polyps (Acute) Anemia (Chronic) Leukocytosis (Acute) Medical History GERD (gastroesophageal reflux disease) History of colon polyps Palliative care patient Palliative care patient Paroxysmal atrial fibrillation Surgical History Colonoscopy - IV Sedation Repair, Tendon or Muscle achilles Tonsillectomy and adenoidectomy Social History Smoking/Tobacco Use Status: Never Smoking risk assessment performed?: Yes Alcohol Intake: current Alcohol Intake frequency: holidays/special occasions only Drug use: Never Substance use type: does not use Do you feel safe at home: Yes Do you feel safe in your relationship?: Yes Exam Narrative Exam Narrative: GEN: awake, alert, oriented 3. Pleasant, well groomed, interactive. HEAD: Normocephalic, atraumatic ENT: Mucous membranes dry, oropharynx unremarkable, External ear exam unremarkable EYES: PERRL, EOMI NECK: Full ROM, no ELVIE, no menigismus CHEST/RESP: Nontender, clear to auscultation bilateral, no wheeze/rhonchi/rales CARDIOVASCULAR: RRR, no murmur, rub sanya. 2+ Rad pulse bilateral ABDOMEN: Soft, nontender, no mass. +Bowel sounds. Lower abdominal ostomy with brown stool EXT: Full ROM, no edema, no rash Neuro: Grossly normal neurologic exam, conversant, interactive. Psych: Speech fluent, thoughts congruent, affect normal Course Vital Signs Vital signs: Vital Signs Temperature 36.7 C 02/13/22 13:30 Pulse 93 H 02/13/22 13:30 Respiratory Rate 20 02/13/22 13:30 Blood Pressure 164/143 H 02/13/22 13:30 Pulse Oximetry 100 02/13/22 13:30 Temperature 36.7 C 02/13/22 13:30 Temperature Source Temporal Artery Scan 02/13/22 13:30 Pulse 93 H 02/13/22 13:30 Respiratory Rate 20 02/13/22 13:30 Respiratory Effort Non-Labored 02/13/22 13:37 Blood Pressure 164/143 H 02/13/22 13:30 Blood Pressure Position Supine 02/13/22 13:30 Pulse Oximetry 100 02/13/22 13:30 Oxygen Delivery Method Room Air 02/13/22 13:30 Oxygen Flow Rate 0 02/13/22 13:30 Pain Level 0 02/13/22 13:30 Lab/Test Results Lab/Test Results: 02/13/22 13:26 Blood Blood Culture - Pending 02/13/22 13:26 Blood Blood Culture - Pending
[2022-02-13 14:04] LABS: HCT 20.9 % (40.0-50.0)
[2022-02-13 14:08] LABS: ALT 25 U/L (16-63); AST 19 U/L (15-37); Alkaline Phosphatase 63 U/L (46-116); Anion Gap 15.2 mmol/L (3-11); BUN 37 mg/dL (7-18); Bilirubin, Total 0.5 mg/dL (0.2-1.0); CO2 15.8 mmol/L (21.0-32.0); CREATININE 2.3 mg/dL (0.70-1.30); Calcium 8.8 mg/dL (8.5-10.1); Chloride 102 mmol/L (98-107); Estimated GFR 29.05 (mL/min/1.73m2); Glucose 94 mg/dL (74-106); Magnesium 1.2 mg/dL (1.8-2.4); Potassium 4.9 mmol/L (3.5-5.1); Sodium 133 mmol/L (136-145); Total Protein 5.4 g/dL (6.4-8.2); Troponin I 59 ng/L (<or=60)
[2022-02-13 14:10] LABS: Source Nasal/Nares
[2022-02-13 14:14] LABS: Diff Comment Diff Reviewed; Macrocytosis 2+; Platelet Count 57 10^3/uL (130-400)
[2022-02-13] MEDS: MAGNESIUM SULFATE 2 GM/50 ML BAG IVPB (14:34)
[2022-02-13 15:01] LABS: COVID-19 PCR Negative (Negative)
[2022-02-13 15:09] LABS: Bilirubin Negative (Negative); Blood Negative (Negative); Clarity Clear (Clear); Glucose Negative (Negative); Ketones Negative (Negative); Leukocyte Esterase Negative (Negative); Nitrite Negative (Negative); Specific Gravity 1.015 (1.005-1.025); Urobilinogen 0.2 EU/dL (Up TO 0.2); pH 5.5 (5-8)
[2022-02-13 16:06] LABS: ESR < 1 mm/hr (0-20)
[2022-02-13] MEDS: PIPERACILLIN/TAZO 3.375 GM in Normal Saline 50 ML IVPB ×2 (16:07→22:53)
[2022-02-13 16:12] LABS: C-Reactive Protein < 0.05 mg/dL (0.0-0.3)
[2022-02-13 16:14] LABS: INR 1.1 (0.9-1.1); PTT Activated 20.1 sec (21.0-27.5)
[2022-02-13] MEDS: Normal Saline 1,000 ML 150 ML IV ×2 (16:27→22:30)
[2022-02-13 16:29] LABS: Lactate 4.6 mmol/L (0.6-1.4)
[2022-02-13 16:52] LABS: Troponin I 76 ng/L (<or=60)
[2022-02-13 16:53] LABS: C Diff PCR Negative (Negative)
--- NOTE | 2022-02-13 17:23 | W.PM.HP.N ---
Date of service: 02/13/22 Time of Service: 17:24 Assessment and Plan Assessment and plan (1) Lactic acidosis: Status: Acute Assessment and plan: Resolved. (2) Paroxysmal atrial fibrillation: Assessment and plan: In ICU on telemetry. In NSR at time of admission. (3) Anemia: Status: Chronic Assessment and plan: Hgb 7.2 No bleeding noted. Monitor (4) Recurrent Clostridioides difficile diarrhea: Status: Resolved Assessment and plan: Cont vancomycin 125mg po BID (per oncology). (5) Leukemia: Status: Chronic Assessment and plan: Under oncologists care. s/p bone marrow transplant. Monitor for neutropenia, pancytopenia. History of Present Illness History of Present Illness Chief Complaint: CP Narrative: This is a 61 yo male with a PMH of AML s/p stem cell transplant, paroxysmal atrial fibrillation, C.Diff with toxic megacolon s/p resection and ostomy, GERD. He presented d/t appx 10 minutes of chest tightness with tingling in both hands. The episode resolved w/o intervention. He has been having daily chills, no fevers noted. He was admitted to [facility] [place] [place] in late December for encephalopathy with dehydration, STACIE and PNA. ED w/u: Temperature ?36.7 C ?02/13/22 13:30 Pulse ?93 H ?02/13/22 13:30 Respiratory Rate ?20 ?02/13/22 13:30 Blood Pressure ?164/143 H ?02/13/22 13:30 Pulse Oximetry ?100 ?02/13/22 13:30 ED course: He was noted to have rigors. Afebrile. Lactate 8; after IV resuscitation it decreased to 4.6. Na 133. K 4.9. Creatinine 2.3. WBC count 6. Hgb 7.2 ED physician consulted [facility] [place] [place] oncology who recommended planned sepsis treatment with Zosyn for antibiotic coverage (previous mental status changes with cefepime). EBV, CMV, tick panel and blood cultures obtained. Review of Systems All systems reviewed & are unremarkable except as noted in HPI and below PFSH All Active Problems (Updated 02/13/22 @ 17:30 by Mikael Scott MD) Lactic acidosis (Acute) Fever (Acute) Acute confusion (Acute) Acute dehydration (Acute) Leukemia (Chronic) BPH (benign prostatic hyperplasia) (Chronic) Diplopia (Acute) Hypomagnesemia (Acute) Binocular vision disorder with diplopia (Acute) Back pain (Acute) Atrial fibrillation (Active 12/04/12) Hx of a fib in 2004 and 2008 wiht eletrical cardioversion. Echocardiogram 2008 showieng EF of 75%, mild LVH, no valvular abnormalities. Flecanide Rx. History of surgery (Active) Colonoscopy 07/06/2011 with tubular adenoma. S/P repair of Achilles tendon. S/P tonsillectomy and adenoidectomy. Gastroesophageal reflux disease (Active) Hx of colonic polyps (Acute) Anemia (Chronic) Leukocytosis (Acute) Medical History GERD (gastroesophageal reflux disease) History of colon polyps Palliative care patient Palliative care patient Paroxysmal atrial fibrillation Surgical History Colonoscopy - IV Sedation Repair, Tendon or Muscle achilles Tonsillectomy and adenoidectomy Social History Smoking/Tobacco Use Status: Never Smoking risk assessment performed?: Yes Alcohol Intake: current Alcohol Intake frequency: holidays/special occasions only Drug use: Never Substance use type: does not use Do you feel safe at home: Yes Do you feel safe in your relationship?: Yes Meds Allergies and Home Medications Allergies Allergy/AdvReac Type Severity Reaction Status Date / Time metoprolol AdvReac skips in Unverified 02/13/22 14:09 heart rate all sugar substitutes AdvReac Uncoded 02/13/22 14:09 Home Medications Medication Instructions Recorded Confirmed Type tamsulosin 0.4 mg capsule 0.4 mg PO DAILY AM 04/29/21 02/13/22 History famotidine 20 mg tablet 40 mg PO DAILY 07/07/21 02/13/22 History metoprolol tartrate 25 mg tablet 12.5 mg PO DAILY 07/07/21 02/13/22 History acyclovir 400 mg tablet 800 tab PO BID 12/30/21 02/13/22 History aspirin 81 mg chewable tablet 81 mg PO DAILY 12/30/21 02/13/22 History dronabinol 5 mg capsule 5 mg PO BID 12/30/21 02/13/22 History flecainide 50 mg tablet 50 mg PO BID 12/30/21 02/13/22 History fluconazole 200 mg tablet 200 mg PO DAILY 12/30/21 02/14/22 History prednisone 10 mg tablet 30 mg PO DAILY 12/30/21 02/13/22 History tacrolimus 0.5 mg capsule, See Rx Instructions .Route .COMPLEX 02/13/22 02/14/22 History immediate-release rosuvastatin 40 mg tablet 40 mg PO DAILY 02/14/22 02/14/22 History Exam Narrative Exam Narrative: Pt covered with layers of blankets. Mild rigors noted Const General: cooperative and frail appearing Nutritional Appearance: average body habitus Orientation: oriented x3 Eyes General: appearance normal, both eyes and all related structures Sclera: sclerae normal Resp Effort & Inspection: no cough and tachypneic Auscultation: clear to auscultation bilaterally Cardio Rate: regular rate Rhythm: regular rhythm Heart Sounds: S1 normal and S2 normal GI Palpation: soft Auscultation: normal bowel sounds Extrem General: no pedal edema and no calf tenderness Psych Mental Status: mental status grossly normal Speech and Movement: speech and movement normal Mood: congruent mood Affect: normal affect Results Labs Result diagrams: 02/14/22 06:05 02/14/22 06:05 Labs: Laboratory Results - last 24 hr 02/13/22 02/13/22 02/13/22 13:27 13:27 13:27 WBC 6.30 RBC 1.92 L Hgb 7.2 L Hct 20.9 L* MCV 109 H MCH 37.5 H MCHC 34.4 RDW 17.9 H Plt Count 57 L MPV 11.1 H Immature Gran % 1.7 Neutrophils % 85.3 Lymphocytes % 6.0 Monocytes % 6.8 Eosinophils % 0.2 Basophils % 0.0 Nucleated RBC % 1.0 H Absolute Neutrophils 5.37 Absolute Lymphocytes 0.38 L Absolute Monocytes 0.43 Absolute Eosinophils 0.01 Absolute Basophils 0.00 RBC Morphology See Below Macrocytosis 2+ ESR PT INR APTT VBG Lactate 8.1 H* Sodium 133 L Potassium 4.9 Chloride 102 Carbon Dioxide 15.8 L Anion Gap 15.2 H BUN 37 H Creatinine 2.3 H Estimated GFR/1.73 m2 29.05 Glucose 94 Calcium 8.8 Magnesium 1.2 L Total Bilirubin 0.5 AST 19 ALT 25 Alkaline Phosphatase 63 Troponin I 59 C-Reactive Protein Total Protein 5.4 L Albumin 3.0 L Urine Color Urine Clarity Urine pH Ur Specific [place] Urine Protein Urine Ketones Urine Blood Urine Nitrite Urine Bilirubin Urine Urobilinogen Ur Leukocyte Esterase Urine Glucose Stl C.difficile Tox PCR COVID-19 Source SARS-CoV-2 (PCR) Influenza Type A (PCR) Influenza Type B (PCR) RSV (PCR) Patient ABO/Rh Antibody Screen 02/13/22 02/13/22 02/13/22 13:27 13:27 13:27 WBC RBC Hgb Hct MCV MCH MCHC RDW Plt Count MPV Immature Gran % Neutrophils % Lymphocytes % Monocytes % Eosinophils % Basophils % Nucleated RBC % Absolute Neutrophils Absolute Lymphocytes Absolute Monocytes Absolute Eosinophils Absolute Basophils RBC Morphology Macrocytosis ESR < 1 PT 11.0 INR 1.1 APTT 20.1 L VBG Lactate Sodium Potassium Chloride Carbon Dioxide Anion Gap BUN Creatinine Estimated GFR/1.73 m2 Glucose Calcium Magnesium Total Bilirubin AST ALT Alkaline Phosphatase Troponin I C-Reactive Protein < 0.05 Total Protein Albumin Urine Color Urine Clarity Urine pH Ur Specific [place] Urine Protein Urine Ketones Urine Blood Urine Nitrite Urine Bilirubin Urine Urobilinogen Ur Leukocyte Esterase Urine Glucose Stl C.difficile Tox PCR COVID-19 Source SARS-CoV-2 (PCR) Influenza Type A (PCR) Influenza Type B (PCR) RSV (PCR) Patient ABO/Rh Antibody Screen 02/13/22 02/13/22 02/13/22 13:46 13:51 13:55 WBC RBC Hgb Hct MCV MCH MCHC RDW Plt Count MPV Immature Gran % Neutrophils % Lymphocytes % Monocytes % Eosinophils % Basophils % Nucleated RBC % Absolute Neutrophils Absolute Lymphocytes Absolute Monocytes Absolute Eosinophils Absolute Basophils RBC Morphology Macrocytosis ESR PT INR APTT VBG Lactate 7.0 H* Sodium Potassium Chloride Carbon Dioxide Anion Gap BUN Creatinine Estimated GFR/1.73 m2 Glucose Calcium Magnesium Total Bilirubin AST ALT Alkaline Phosphatase Troponin I C-Reactive Protein Total Protein Albumin Urine Color Urine Clarity Urine pH Ur Specific [place] Urine Protein Urine Ketones Urine Blood Urine Nitrite Urine Bilirubin Urine Urobilinogen Ur Leukocyte Esterase Urine Glucose Stl C.difficile Tox PCR COVID-19 Source Cancelled Nasal/Nares SARS-CoV-2 (PCR) Cancelled Negative Influenza Type A (PCR) Cancelled Influenza Type B (PCR) Cancelled RSV (PCR) Cancelled Patient ABO/Rh Antibody Screen 02/13/22 02/13/22 02/13/22 14:16 15:02 15:55 WBC RBC Hgb Hct MCV MCH MCHC RDW Plt Count MPV Immature Gran % Neutrophils % Lymphocytes % Monocytes % Eosinophils % Basophils % Nucleated RBC % Absolute Neutrophils Absolute Lymphocytes Absolute Monocytes Absolute Eosinophils Absolute Basophils RBC Morphology Macrocytosis ESR PT INR APTT VBG Lactate Sodium Potassium Chloride Carbon Dioxide Anion Gap BUN Creatinine Estimated GFR/1.73 m2 Glucose Calcium Magnesium Total Bilirubin AST ALT Alkaline Phosphatase Troponin I C-Reactive Protein Total Protein Albumin Urine Color Yellow Urine Clarity Clear Urine pH 5.5 Ur Specific [place] 1.015 Urine Protein Negative Urine Ketones Negative Urine Blood Negative Urine Nitrite Negative Urine Bilirubin Negative Urine Urobilinogen 0.2 Ur Leukocyte Esterase Negative Urine Glucose Negative Stl C.difficile Tox PCR Negative COVID-19 Source SARS-CoV-2 (PCR) Influenza Type A (PCR) Influenza Type B (PCR) RSV (PCR) Patient ABO/Rh O Negative Antibody Screen NEGATIVE 02/13/22 02/13/22 16:21 16:21 WBC RBC Hgb Hct MCV MCH MCHC RDW Plt Count MPV Immature Gran % Neutrophils % Lymphocytes % Monocytes % Eosinophils % Basophils % Nucleated RBC % Absolute Neutrophils Absolute Lymphocytes Absolute Monocytes Absolute Eosinophils Absolute Basophils RBC Morphology Macrocytosis ESR PT INR APTT VBG Lactate 4.6 H* Sodium Potassium Chloride Carbon Dioxide Anion Gap BUN Creatinine Estimated GFR/1.73 m2 Glucose Calcium Magnesium Total Bilirubin AST ALT Alkaline Phosphatase Troponin I 76 H* C-Reactive Protein Total Protein Albumin Urine Color Urine Clarity Urine pH Ur Specific [place] Urine Protein Urine Ketones Urine Blood Urine Nitrite Urine Bilirubin Urine Urobilinogen Ur Leukocyte Esterase Urine Glucose Stl C.difficile Tox PCR COVID-19 Source SARS-CoV-2 (PCR) Influenza Type A (PCR) Influenza Type B (PCR) RSV (PCR) Patient ABO/Rh Antibody Screen Last Vital Signs Temp 36.7 C 02/13/22 13:30 Pulse 79 02/13/22 16:45 Resp 29 H 02/13/22 16:50 BP 99/69 L 02/13/22 16:45 Pulse Ox 97 02/13/22 16:50
[2022-02-13] MEDS: Hydrocortisone SOD SUC. 100 MG VIAL 50 MG IVP (19:53)
[2022-02-13] MEDS: Vancomycin 125 MG CAP PO (19:54)
[2022-02-13 20:32] LABS: Troponin I 71 ng/L (<or=60)
[2022-02-13] MEDS: Acyclovir 400 MG TAB 800 MG PO (20:38)
[2022-02-13] MEDS: Tacrolimus 0.5 MG CAP 1 MG PO (20:38)
[2022-02-13] MEDS: Magnesium Oxide 400 MG TAB 800 MG PO (22:29)
[2022-02-14] VITALS (68 sets, daily range): BP systolic 111–137; BP diastolic 67–86; PULSE 70–97; RESP 14–41; TEMP 36.4–36.7; O2SAT 73–100
--- NOTE | 2022-02-14 | DI.RAD_ITS ---
Exam(s) XR CHEST 2V PA LATERAL EXAM: XR CHEST 2V PA LATERAL CLINICAL HISTORY: Sepsis, recommended study from portable cxr findng. TECHNIQUE: 2D digital imaging was performed. COMPARISON: CR,XR XR CHEST 2V PA LATERAL from 01/04/2022 CR XR PORTABLE CHEST AP from 02/13/2022 FINDINGS: 2 views: Right supra clavi in Port-A-Cath distal tip is in the upper right atrium, unchanged. Heart size is normal. The mediastinum is not widened. Left lung is clear. On the right side there is blunting of the right costophrenic angle consistent with small-moderate si ze pleural effusion. There is also some atelectasis and mild infiltrate in the right lung base. IMPRESSION: Persistent right lung base findings including mild infiltrate and small-moderate size right pleural e ffusion. There is no pneumothorax. DATA REPOSITORY: RADIATION DOSE DELIVERED:
--- NOTE | 2022-02-14 | DI.RAD_ITS ---
Exam(s) XR PORTABLE CHEST AP EXAM: XR PORTABLE CHEST AP CLINICAL HISTORY: sepsis, tachypnea. TECHNIQUE: 2D digital imaging was performed. COMPARISON: CR XR PORTABLE CHEST AP from 02/13/2022 FINDINGS: Single AP portable view. Distal tip of the right Port-A-Cath is at the upper right atrium, unchanged Heart size is upper normal. The mediastinum is not widened. There is a nodular density in the lateral right lung base. Partially obscured by ribs and overlying wires. There also increasing markings in the lateral left lung base. No large pleural effusions. N o pulmonary edema evident on this single view study. There is no pneumothorax. IMPRESSION: Bilateral lung base findings as described above. Recommend nonportable PA and lateral views when cli nically possible. DATA REPOSITORY: RADIATION DOSE DELIVERED: All CT scans at this facility use at least one of these dose optimization techniques: automated exposure control; mA and/or kV adjustment per patient size (includes targeted e xams where dose is matched to clinical indication); or iterative reconstruction.
[2022-02-14] MEDS: Hydrocortisone SOD SUC. 100 MG VIAL 50 MG IVP ×3 (02:19→18:03)
[2022-02-14] MEDS: PIPERACILLIN/TAZO 3.375 GM in Normal Saline 50 ML IVPB ×4 (04:33→21:41)
[2022-02-14] MEDS: Normal Saline 1,000 ML 150 ML IV (05:15)
[2022-02-14 06:16] LABS: Lactate 1.1 mmol/L (0.6-1.4)
[2022-02-14 06:18] LABS: Abs Immature Grans 0.04 10^3/uL (0.0-0.06); Absolute Lymphocyte Count 0.29 10^3/uL (1.2-3.4); Absolute Monocyte Count 0.11 10^3/uL (0.1-0.8); Absolute Neutrophil Count 2.37 10^3/uL (1.2-6.7); Immature Grans % 1.4; Lymphocytes % 10.3; MCH 37.8 pg (27.0-33.0); MCHC 34.4 % (32.0-36.0); MCV 110 fL (80-95); MPV 11.3 fL (8.0-11.0); Monocytes % 3.9; Neutrophils % 84.4; Nucleated RBC 1.1 % (0.0-0.3); Platelet Count 42 10^3/uL (130-400); RBC 1.64 10^6/uL (4.36-5.78); RDW 18.1 % (11.8-14.1); RDW-SD 71.3 fL; WBC 2.81 10^3/uL (4.4-10.8)
[2022-02-14 06:27] LABS: HGB 6.2 g/dL (13.5-17.5)
[2022-02-14 06:31] LABS: Anion Gap 8.5 mmol/L (3-11); BUN 32 mg/dL (7-18); CO2 19.5 mmol/L (21.0-32.0); CREATININE 1.9 mg/dL (0.70-1.30); Chloride 110 mmol/L (98-107); Estimated GFR 36.22 (mL/min/1.73m2); Glucose 90 mg/dL (74-106); Magnesium 1.8 mg/dL (1.8-2.4); Potassium 5.2 mmol/L (3.5-5.1); Sodium 138 mmol/L (136-145)
[2022-02-14 07:17] LABS: Anisocytosis 1+; Basophilic Stippling Present; Diff Comment Diff Reviewed; Hypochromasia 1+; Macrocytosis 1+; Polychromasia Present
[2022-02-14] MEDS: Acyclovir 400 MG TAB 800 MG PO ×2 (08:36→19:59)
[2022-02-14] MEDS: Vancomycin 125 MG CAP PO ×2 (08:37→19:58)
[2022-02-14] MEDS: Tacrolimus 0.5 MG CAP PO (08:37)
[2022-02-14] MEDS: Fluconazole 100 MG TAB 400 MG PO (08:37)
[2022-02-14] MEDS: Lidocaine 1% Multi-Dose 20 ML VIAL (10:10)
[2022-02-14] MEDS: Normal Saline-STERILE FIELD 0.9% 10 ML SYR (10:11)
--- NOTE | 2022-02-14 10:14 | NUR.NOTE ---
Patient's port is accessed on first try. Monte needle size is 19. Port flushes very well.Nursing Note:
--- NOTE | 2022-02-14 10:40 | NUR.NOTE ---
Patient travels to radiology and back for PA/LAT.Nursing Note:
--- NOTE | 2022-02-14 11:03 | NUR.NOTE ---
Patient's girlfriend is visiting.Nursing Note:
--- NOTE | 2022-02-14 11:04 | NUR.NOTE ---
Patient is sleeping.Nursing Note:
--- NOTE | 2022-02-14 11:42 | PDOC.CMIN ---
- If Service Date Differs Date of service: 02/14/22 Time of Service: 11:43 Care Management Initial Assess REASON FOR HOSPITALIZATION:: sepsis PAST MEDICAL HISTORY/PAST SURGICAL HISTORY:: All Active Problems (Updated 02/13/22 @ 17:30 by Mikael Scott MD). Lactic acidosis (Acute). Fever (Acute). Acute confusion (Acute). Acute dehydration (Acute). Leukemia (Chronic). BPH (benign prostatic hyperplasia) (Chronic). Diplopia (Acute). Hypomagnesemia (Acute). Binocular vision disorder with diplopia (Acute). Back pain (Acute). Atrial fibrillation (Active 12/04/12). Hx of a fib in 2004 and 2008 wiht eletrical cardioversion. Echocardiogram 2008 showieng EF of 75%, mild LVH, no valvular abnormalities. Flecanide Rx. History of surgery (Active). Colonoscopy 07/06/2011 with tubular adenoma. S/P repair of Achilles tendon. S/P tonsillectomy and adenoidectomy. Gastroesophageal reflux disease (Active). Hx of colonic polyps (Acute). Anemia (Chronic). Leukocytosis (Acute). Medical History . GERD (gastroesophageal reflux disease). History of colon polyps. Palliative care patient. Palliative care patient. Paroxysmal atrial fibrillation. Surgical History . Colonoscopy - IV Sedation. Repair, Tendon or Muscle. achilles. Tonsillectomy and adenoidectomy PREVIOUS FUNCTIONAL STATUS/SOCIAL/FAMILY SUPPORTS:: Herber lives in [facility] with his significant other, Chai and her mother. His close friend and HCA is Colby Lopez. Herber has not driven since April due to his declining health. He has a walker and requires significant help with his ADL's. He receives services for nursing, OT and PT. CURRENT FUNCTIONAL STATUS:: Herber was sittting up in bed when CM met with him. He was polite and agreeable to conversation. Herber stated that he is starting to feel better. He has not been able to work since April and has used up all of his sick time and disability and has no income. He has applied for social security disability but has not had a hearing yet. Herber shared that he has been in and out of hospitals a lot in the past few months and has become very weak. He stated that his legs just won't do what he wants them to do. ADVANCE DIRECTIVES:: On file. HCA- Colby Orlando Has patient been provided with info about the portal/API?: Yes Did the patient sign up for the portal?: No CODE STATUS:: Full Code INSURANCE COVERAGE / FINANCIAL ISSUES:: Medicaid CURRENT HOME/COMMUNITY SERVICES/EQUIPMENT:: [facility] PT,OT. has a walker PRIMARY CARE PHYSICIAN:: Beatriz Maurice POTENTIAL DISCHARGE NEEDS:: Follow up appointments, discharge plan of care. PATIENT/FAMILY EDUCATION NEEDS:: Review discharge instructions, limitations, medications and plan to follow up with community providers. ask me three. TRANSPORTATION:: Via private vehicle with family/friend. PLAN:: Anticipate Herber will discharge home with a resumption of services. He will follow up with his community providers both locally and at [facility] and transport with friends or family. CM will continue to support discharge planning needs.
--- NOTE | 2022-02-14 14:18 | PHA.REVIEW ---
Pharmacy Admission Review - Admission Clinical Review (Last Reviewed 02/13/22 @ 13:51 by Mikael Scott MD) Lactic acidosis (Acute) metoprolol Adverse Reaction (Unverified 02/13/22 14:09) skips in heart rate all sugar substitutes Adverse Reaction (Uncoded 02/13/22 14:09) Resuscitation Status Full Code Height 5 ft 11 in Weight 79.1 kg - Renal Dosing Renal Dosing: BUN 32 mg/dL (7-18) H 02/14/22 06:05 Creatinine 1.9 mg/dL (0.70-1.30) H 02/14/22 06:05 Medications needing adjustments: Reviewed (Crcl ~43 mL/min current meds okay) - Anticoagulation Anticoagulation: Hgb 6.2 g/dL (13.5-17.5) L* 02/14/22 06:05 Hct 18.0 % (40.0-50.0) L* 02/14/22 06:05 Plt Count 42 10^3/uL (130-400) L 02/14/22 06:05 INR 1.1 (0.9-1.1) 02/13/22 13:27 Creatinine 1.9 mg/dL (0.70-1.30) H 02/14/22 06:05 DVT Prophylaxis: Reviewed (being held due to anemia) Therapeutic Anticoagulation: N/A - Opiate Usage Evaluate Pain Scale/Pains Meds: N/A - Relevant Labs ESR < 1 mm/hr (0-20) 02/13/22 13:27 Sodium 138 mmol/L (136-145) 02/14/22 06:05 Potassium 5.2 mmol/L (3.5-5.1) H 02/14/22 06:05 Chloride 110 mmol/L (98-107) H 02/14/22 06:05 Magnesium 1.8 mg/dL (1.8-2.4) 02/14/22 06:05 C-Reactive Protein < 0.05 mg/dL (0.0-0.3) 02/13/22 13:27 - DM Control DM Control: Glucose 90 mg/dL (74-106) 02/14/22 06:05 Insulin Dosing: N/A - Heart Failure/RI Heart Failure/RI: Troponin I 71 ng/L (<or=60) H* 02/13/22 20:04 EF%, RO's, B-Blockers, Diuretics: Reviewed - BP Control BP Control: Blood Pressure [Right Arm] 124/76 Blood Pressure [Right Arm] 116/80 Blood Pressure 120/85 Blood Pressure 120/80 Blood Pressure 120/80 Blood Pressure 119/85 Blood Pressure 123/78 Blood Pressure 119/83 Blood Pressure 116/80 Blood Pressure 128/77 If elevated: N/A - Qtc Review If Elevated: N/A (QTc 464 on admission) - IV to PO Switch IV Medications: Reviewed - Home Meds Home Med List reviewed: Intervened (I noticed some differences in the home med list in [employer] and the external med history. Nursing double checked with patient. Patient takes rosuvastatin 40 mg once a day, fluconazole dose was recently decreased to 200 mg daily. Med list updated and provider made aware.) Relevent Home Meds Not ordered & why?: aspirin, dronabinol, famotidine, metoprolol, prednisone (has hydrocortisone ordered), tamsulosin - Current meds Current Medication Order Review: Intervened (Adjusted the timing of hydrocortisone so on it falls on the hour per medication administration timing policy.) - Comments Comments/Follow Ups: Watch BP, SCr, H/H, plts, K+, for culture results and for med changes (possible renal dose adjustments, home meds) Antibiotic Activity - Pharmacy Antibiotic Review Pharmacy Antibiotic Activity: Reviewed, no change (Zosyn ordered for possible sepsis (day2). Blood cultures pending.)
--- NOTE | 2022-02-14 16:35 | W.PM.PROGNOT ---
Date of Service Date of service: 02/14/22 Time of Service: 16:35 Assessment and Plan Assessment and plan (1) Lactic acidosis: Status: Acute Assessment and plan: Resolved. Etiology was unclear on admission but repeat CXR after hydration shows right lung base findings including mild infiltrate and small-moderate size right pleural effusion. Cont Zosyn. Resp rate improved. Certainly could be viral. (2) Paroxysmal atrial fibrillation: Assessment and plan: In ICU on telemetry. In NSR (3) Anemia: Status: Chronic Assessment and plan: Hgb 7.2 on admission; declined to 6.2 Transfuse 1 unit of RBCs and recheck H/H. No bleeding noted. Likely bone marrow suppression; also leukopenic and thrombocytopenic. Monitor (4) Recurrent Clostridioides difficile diarrhea: Status: Resolved Assessment and plan: Cont vancomycin 125mg po BID (per oncology). (5) Leukemia: Status: Chronic Assessment and plan: Under oncologists care. s/p bone marrow transplant. Monitor neutropenia, pancytopenia. Subjective Subjective Patient reports: feels better and afebrile; denies nausea, vomiting or shortness of breath Exam Narrative Exam Narrative: Lying in bed. Pleasant/cooperative. Const General: no acute distress Nutritional Appearance: average body habitus Orientation: alert and oriented x3 Eyes General: appearance normal, both eyes and all related structures Conjunctivae: conjunctivae normal Resp Effort & Inspection: normal respiratory effort Auscultation: clear to auscultation bilaterally Cardio Rate: regular rate Rhythm: regular rhythm Heart Sounds: S1 normal and S2 normal GI Palpation: soft and nontender Skin General skin exam: no rashes or lesions noted Extrem General: no pedal edema and no calf tenderness Objective Last Vital Signs Temp 36.6 C 02/14/22 15:49 Pulse 77 02/14/22 15:49 Resp 29 H 02/14/22 15:49 BP 137/83 02/14/22 15:49 Pulse Ox 99 02/14/22 15:49 Laboratory Results - last 24 hr 02/13/22 02/13/22 02/13/22 14:16 15:55 16:21 WBC RBC Hgb Hct MCV MCH MCHC RDW Plt Count MPV Immature Gran % Neutrophils % Lymphocytes % Monocytes % Eosinophils % Basophils % Nucleated RBC % Absolute Neutrophils Absolute Lymphocytes Absolute Monocytes Absolute Eosinophils Absolute Basophils RBC Morphology Polychromasia Hypochromasia Basophilic Stippling Anisocytosis Macrocytosis VBG Lactate Sodium Potassium Chloride Carbon Dioxide Anion Gap BUN Creatinine Estimated GFR/1.73 m2 Glucose Calcium Magnesium Troponin I 76 H* Stl C.difficile Tox PCR Negative Patient ABO/Rh O Negative Antibody Screen NEGATIVE Crossmatch See Detail 02/13/22 02/14/22 02/14/22 20:04 06:05 06:05 WBC 2.81 L RBC 1.64 L Hgb 6.2 L* Hct 18.0 L* MCV 110 H MCH 37.8 H MCHC 34.4 RDW 18.1 H Plt Count 42 L MPV 11.3 H Immature Gran % 1.4 Neutrophils % 84.4 Lymphocytes % 10.3 Monocytes % 3.9 Eosinophils % 0.0 Basophils % 0.0 Nucleated RBC % 1.1 H Absolute Neutrophils 2.37 Absolute Lymphocytes 0.29 L Absolute Monocytes 0.11 Absolute Eosinophils 0.00 Absolute Basophils 0.00 RBC Morphology See Below Polychromasia Present Hypochromasia 1+ Basophilic Stippling Present Anisocytosis 1+ Macrocytosis 1+ VBG Lactate Sodium 138 Potassium 5.2 H Chloride 110 H Carbon Dioxide 19.5 L Anion Gap 8.5 BUN 32 H Creatinine 1.9 H Estimated GFR/1.73 m2 36.22 Glucose 90 Calcium 8.0 L Magnesium 1.8 Troponin I 71 H* Stl C.difficile Tox PCR Patient ABO/Rh Antibody Screen Crossmatch 02/14/22 06:05 WBC RBC Hgb Hct MCV MCH MCHC RDW Plt Count MPV Immature Gran % Neutrophils % Lymphocytes % Monocytes % Eosinophils % Basophils % Nucleated RBC % Absolute Neutrophils Absolute Lymphocytes Absolute Monocytes Absolute Eosinophils Absolute Basophils RBC Morphology Polychromasia Hypochromasia Basophilic Stippling Anisocytosis Macrocytosis VBG Lactate 1.1 Sodium Potassium Chloride Carbon Dioxide Anion Gap BUN Creatinine Estimated GFR/1.73 m2 Glucose Calcium Magnesium Troponin I Stl C.difficile Tox PCR Patient ABO/Rh Antibody Screen Crossmatch
[2022-02-14 18:00] LABS: Fibrinogen 203 mg/dL (171-384)
[2022-02-14] MEDS: Normal Saline Flush 10 ML SYR IVP (18:02)
--- NOTE | 2022-02-14 18:07 | NUR.NOTE ---
RN draws H & H off port.Nursing Note:
[2022-02-14] MEDS: Normal Saline 1,000 ML 100 ML IV (18:36)
[2022-02-14 18:37] LABS: HCT 23.1 % (40.0-50.0); HGB 7.9 g/dL (13.5-17.5)
[2022-02-14] MEDS: Tacrolimus 0.5 MG CAP 1 MG PO (19:58)
[2022-02-14] MEDS: Enoxaparin 40 MG/0.4 ML SYR SC (19:58)
[2022-02-14] MEDS: Magnesium Oxide 400 MG TAB 800 MG PO (20:01)
[2022-02-17 11:52] LABS: Lyme Ab w Rflx to Lyme Confirm Negative (Negative)
[2022-02-18 14:18] LABS: EBV DNA Detect/Quant, P Undetected IU/mL (Undetected)
[2022-02-18 17:07] LABS: Anaplasma phagocytophilum Negative (Negative); B. miyamotoi PCR Negative (Negative); Babesia divergens/MO-1 Negative (Negative); Babesia duncani Negative (Negative); Babesia microti Negative (Negative); Ehrlichia chaffeensis Negative (Negative); Ehrlichia ewingii/canis Negative (Negative); Ehrlichia muris eauclairensis Negative (Negative)
[2022-02-19 12:19] LABS: CMV DNA Detect/Quant, P Undetected IU/mL (Undetected)
== END 2022-02-14 22:25 | disposition short-term general hospital (02) | DRG 641 ==
LOC: ER 17:30 → ICU 17:36
PROVIDERS: Admitting Provider Family Medicine; Emergency Provider Emergency Medicine; PCP Physician Assistant Medical; Visit Provider Family Medicine
DX: Z94.81 Bone marrow transplant status (principal); Z94.84 Stem cells transplant status; E87.2 Acidosis; D84.821 Immunodeficiency due to drugs; C92.00 Acute myeloblastic leukemia, not having achieved remission; A04.71 Enterocolitis due to Clostridium difficile, recurrent; R50.9 Fever, unspecified; R91.8 Other nonspecific abnormal finding of lung field; R07.89 Other chest pain; I48.0 Paroxysmal atrial fibrillation; Z45.2 Encounter for adjustment and management of vascular access device; Z79.899 Other long term (current) drug therapy; Z93.3 Colostomy status; R41.0 Disorientation, unspecified; E86.0 Dehydration; N40.0 Benign prostatic hyperplasia without lower urinary tract symptoms; E83.42 Hypomagnesemia; K21.9 Gastro-esophageal reflux disease without esophagitis; D69.6 Thrombocytopenia, unspecified; R68.89 Other general symptoms and signs
CPT/HCPCS: 36415; 36430; 36591; 80048; 80053; 85384; 85652; 86850; 86900; 86901; 86920; 86945; 87040; 87493; 87635; 87637; 87798; 87799; 93005; 96361; 96365; 96366; 96368; 99285; J1650; 71045; 71046; 80197; 81003; 83605; 83735; 84484; 85014; 85018; 85025; 85610; 85730; 86140; 86618; 87497; 93010; 99223; 99233; J1720; J2543; J3490; P9016

== ENCOUNTER 2022-02-28 07:35 | Outpatient (RCR) | payer MEDICAID, SELFPAY ==
--- OUTSIDE RECORDS SUMMARY | 2022-02-14 11:05 | XMS_ITS | Encounter Summary ---
:1960 Author Organization [facility] Address [address] [place] [address] Care Team Providers Name Role Phone Beatriz Maurice PA-C Primary Care Provider [phone] Encounter Details Date Type Department Care Team Description 04/30/2021 Lab Requisition [facility] Outr Resulting Lab, Pathology & Laboratory Provider [facility] [address] [place] [address] Social History Tobacco Use Types Packs/Day Years Used Date Never Assessed Sex Assigned at Date Recorded Not on file documented as of this encounter Plan of Treatment Not on filedocumented as of this encounter Procedures Procedure Name Priority Date/Time Associated Diagnosis Comme nts COVID-19 TEST [facility] Today 04/29/2021 15:20 LAB PCR EDT COVID-19 TESTING Routine 04/29/2021 15:20 Results for this EDT procedure are i n the results section. documented in this encounter Results COVID-19 TEST [facility] LAB PCR (04/29/2021 15:20 EDT) Specimen Swab - Entire nasopharynx (body structur e) Performing Organization Address City/State/ZIP Code Phon e Number [facility]ORATORY [address] [place] [address] SERVICES COVID-19 TESTING (04/29/2021 15:20 EDT) COVID-19 rt-PCR Negative Negative [facility] MEDICAL Result Comment: CENTER LABORATORY This test has not been FDA c leared or approved. This test has been authorized by FDA under an EUA for use by authorized laboratories. This test has been authorized only for detection of nucleic acid fro SERVICES m 2019-nCoV, not for any oth er viruses or pathogens. This test is only authorized for the duration of the declaration that circumstances exist justifying the authorization of emergency use of in vitro d iagnostic tests for detectio n and/or diagnosis of 2019-nCoV under section 564(b)(1) of Act, 21 U.S.C ?? 360bbb-3(b) (1), unless the authorization is terminated or revoked sooner. Negative results do not prec lude 2019-nCoV infection and should not be used as the sole basis for treatment or other patient management decisions. Negative results must be combined with clinical observa tions, patient history, and epidemiological informatio n. This test was developed and its performance characteristics determined by [facility]. It has not been cleared or approved by the US Food and Drug Administration. FDA does not require this test to go through premarket FDA review. This t est is used for clinical purposes. It should not be regarded as investigational or for research. This laboratory is certified under the Clinical Laboratory Improvement Amendm ents (CLIA) as qualified to perform high complexity clinical laboratory testing. This test is based on the CD C COVID-19 Emergency Use Authorization (EUA) assay, with minor modification as defined by the FDA Performed on the Colovoreo 7 Flex RT-PCR System. This test was developed and its performance characteristics determined by [facility]. It has not been cleared or approved by the US Food and Drug Administration. FDA does not require this test to go through premarket FDA review. This t est is used for clinical purposes. It should not be regarded as investigational or for research. This laboratory is certified under the Clinical Laboratory Improvement Amendm ents (CLIA) as qualified to perform high complexity clinical laboratory testing. This test is based on the CD C COVID-19 Emergency Use Authorization (EUA) assay, with minor modification as defined by the FDA Performed on the C[employer] Software QuantForever His Transporto 7 Pro RT-PCR System. Performing Lab [facility] Lab [facility] SERVICES Specimen Swab Performing Organization Address City/State/ZIP Code Phon e Number [facility] [address] [place] [address] SERVICES documented in this encounter Visit Diagnoses Not on filedocumented in this encounter Care Teams Whipped Topping Supervisor Relationship Specialty Start Date End Date Beatriz Maurice PA-C PCP - General 04/17/[address] [place] [id number] documented as of this encounter
--- OUTSIDE RECORDS SUMMARY | 2022-02-14 11:05 | XMS_ITS | Encounter Summary ---
:1960 Author Organization [facility] Address [address] [place] [address] Care Team Providers Name Role Phone Beatriz Maurice PA-C Primary Care Provider [phone] Encounter Details Date Type Department Care Team Description 07/12/2021 Lab Requisition [facility] Emilia Winters, Leukemia, Pathology & KNOT BUMPER unspecified not Laboratory Medicine [address] [place], [place] remission ([facility]) [address] [facility] [address] ([facility]) [place], [place] [id number] Social History Tobacco Use Types Packs/Day Years Used Date Never Assessed Sex Assigned at Date Recorded Not on file documented as of this encounter Plan of Treatment Not on filedocumented as of this encounter Procedures Procedure Name Priority Date/Time Associated Diagnosis Comme nts LEUKEMIA/LYMPHOMA Today 07/10/2021 11:00 Leukemia, Result s for this PANEL BY FLOW EST unspecified not procedure a re in CYTOMETRY having achieved the results remission ([facility]) section. ([facility]) documented in this encounter Results LEUKEMIA/LYMPHOMA PANEL BY FLOW CYTOMETRY (07/10/2021 11:00 EST) Addendum Comment This addendum is issued to c orrect the source of the specimen. There is no change in diagnosis. [facility] Addendu CENTER electronically The correct source of the specimen is peripheral blood . 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 See comment. CENTER Interpretation LABORATORY SERVICES Comment The results of flow cytometr y are consistent with involvement by acute myeloid leukemia. Please correlate these findings with results of a definitive morphologic enumeration of blasts. Correlation of [facility] ICAL maine findings with morphologic and clinical data is ess ential. CENTER LABORATORY SERVICES Attestation By the signature [facility] Electronica lly below, the attending CENTER signed by Jay, physician certifies LABORATORY Sergo Lux MD on that they have 1) SERVICES 07/12/2021 at 1401 personally conducted a gross and/or microscopic examination of the described specimen(s), and/or personally interpreted the results of laboratory testing of the described specimen(s), and 2) personally rendered or confirmed the above diagnosis. Clinical History Leukemia C95.90 [facility] LABORATORY SERVICES Description A single cell suspension is prepared with ammonium chloride red cell lysis. Gating is performed using CD45 fluorescence and side scatter. Cellular viability (assessed by propidium iodide exclusion) is g [facility] ood (91%) among cells with C D45 and side scatter properties typical of lymphocytes and good (93%) among CD45+ events overall. [facility] LABORATORY There is a population of mye loblasts accounting for 27% of CD45+ events. The lineage-specific markers expressed by the blasts are dim CD4, CD11c, CD33, dim CD117. Progenitor markers CD38 and HLA-DR are SERVICES also expressed. There is aberrant expression of dim CD 7. A majority of the lymphoid c ells are T-lymphocytes (CD2+CD3+CD5+CD7+) with CD4+ and CD8+ subsets represented. The remaining lymphocytes are B-lymphocytes (CD19+CD20+) and NK-cells (CD2+CD3-CD16+CD56+). B-cells are too few in [facility] to permit definitive assessment with respect to light chain expression. The remainder of the CD45+ events is predominantly of myeloid lineage. Scatter plots incorporating all of the markers have been interpreted and evaluated for the presence or absence of abnormal cell populations. Only pertinent abnormal findings are included. If not otherwi se addressed all other markers were normal/negative. Flow Markers CD2, CD3, CD4, CD5, [facility] CD7, CD8, CD10, CENTER CD11b, CD11c, CD13, LABORATORY CD14, CD16, CD19, SERVICES CD20, CD22, CD23, CD33, CD34, CD38, CD45, CD56, CD57, CD117, FMC7, HLADR, [place], and Lambda. FDA Disclaimer This test was [facility] and its CENTER performance LABORATORY characteristics SERVICES determined by the Department of Pathology and Laboratory Medicine, [facility], [place], [place] It has not been cleared or approved by the U.S. Food and Drug Administration. FDA does not require this test to go through premarket FDA review. This test is used for clinical purposes. It should not be regarded as investigational or for research. This laboratory is certified under the Clinical Laboratory Improvement Amendments (CLIA) as qualified to perform high complexity clinical laboratory testing. Scanned Images [facility] LABORATORY SERVICES Specimen Blood - Venous blood (substance) Performing Organization Address City/State/[facility] Code Phon e Number [facility] [address] [place] [address] SERVICES documented in this encounter Visit Diagnoses Diagnosis Leukemia, unspecified not having achieve d remission (HCC-CMS) (HCC) documented in this encounter Care Teams Cleaning Professional Relationship Specialty Start Date End Date Beatriz Maurice PA-C PCP - General 04/17/21 [address] [place] [address] documented as of this encounter
--- OUTSIDE RECORDS SUMMARY | 2022-02-14 11:05 | XMS_ITS | Clinical Summary ---
:1960 Author Organization [facility] Address [address] [place] [address] Care Team Providers Name Role Phone Beatriz Maurice PA-C Primary Care Provider [phone] Encounters Date Type Specialty Care Team Description 02/14/2022 Lab Requisition [facility] Outr Resulting Lab , Provider 02/14/2022 Lab Requisition Clinical Laboratory Outr Resulting Lab , Provider 02/14/2022 Lab Requisition Clinical Laboratory Outr Resulting Lab , Provider 02/05/2022 Lab Requisition Clinical Laboratory Outr Resulting Lab , Provider 01/06/2022 Lab Requisition Clinical Laboratory Outr Resulting Lab , Provider 01/03/2022 Lab Requisition Clinical Laboratory Outr Resulting Lab , Provider 12/30/2021 Lab Requisition Clinical Laboratory Outr Resulting Lab , Provider from Last 3 Months Social History Tobacco Use Types Packs/Day Years Used Date Never Assessed Sex Assigned at Date Recorded Not on file Plan of Treatment Health Maintenance Due Date Last Done Comments Hepatitis C Screen 1960 COVID-19 Vaccine (1) 1965 Procedures Procedure Name Priority Date/Time Associated Comments Diagnosis IGG Routine 02/05/2022 8:10 EDT Results for this procedure are i n the results section. LEGIONELLA ANTIGEN Routine 01/05/2022 12:30 Resul ts for this DETECTION, URINE EDT procedure a re in the results section. TACROLIMUS ([id number]) Routine 01/03/2022 6:33 EDT Re sults for this procedure are i n the results section. HOLD LAVENDER TOP Today 12/29/2021 21:30 Result s for this EDT procedure are i n the results section. TACROLIMUS ([id number]) Today 12/29/2021 21:30 Resul ts for this EDT procedure are i n the results section. from Last 3 Months Results IGG (02/05/2022 8:10 EDT) Pathologist Sig nature IgG 642 610-1,616 mg/dL [facility] LABORA TORY SERVICES Specimen Blood - Venous blood (substance) Performing Organization Address [facility]/ZIP [facility] Phon e Number [facility] [address] [place] [address] SERVICES LEGIONELLA ANTIGEN DETECTION, URINE (01/05/2022 12:30 EDT) Pathologist Sig nature Legionella Antigen Negative Negative [facility] Detection LABORATORY SERVICES Specimen Urine Performing Organization Address [facility] Phon e Number [facility] [address] [place] [address] SERVICES TACROLIMUS ([id number]) (01/03/2022 6:33 EDT)Only the most recent of2 resultswithin the time period is included. Tacrolimus 3.8 See Note [facility] Comment: ng/mL LABORATORY NOTE: SERVICES Tacrolimus Therapeutic Range : 3-12 ng/mL (The goal level is based on clinical context). Assayed utilizing [employer] miluminescent technology. ??Values obtained using different assay methods cannot be used interchangeably. Specimen Blood - Venous blood (substance) Performing Organization Address [facility] Phon e Number [facility] [address] [place] [address] SERVICES HOLD LAVENDER TOP (12/29/2021 21:30 EDT) Pathologist Sig nature Hold Hold [facility] LABORATOR Y SERVICES Specimen Blood - Venous blood (substance) Performing Organization Address [facility] Phon e Number [facility] [address] [place] [address] SERVICES from Last 3 Months Insurance Payer Benefit Plan / Subscriber ID Effective Dates Phone Addre ss Type Group UMR UMR [id number] 2018-Present [address] [place] [address] [address]) [facility] [phone] [place] (Work) [phone] Herber Iverson Personal/Family Self 1960 [address]) [facility] [phone] [place] (Work) [phone] Herber Iverson Personal/Family Self 1960 [address]) [facility] [phone] [place] ([place]) [phone] Herber Iverson Personal/Family Self 1960 [address]) [place] [phone] [place] ([place]) [phone] Herber Iverson Personal/Family Self 1960 [address]) [facility] [phone] [place] ([place] [phone] Herber Iverson Personal/Family Self 1960 [address]) [place] [address] [place] ([place]) [phone] Herber Iverson Personal/Family Self 1960 [address]) [facility] [phone] [place] ([place]) [phone] Herber Iverson Personal/Family Self 1960 [address]) [place] [phone] [place] (Work) [phone] Care Teams Wildlife Biology Internship Relationship Specialty Start Date End Date Beatriz Maurice PA-C PCP - General 04/17/21 [address] [place] [address]
--- OUTSIDE RECORDS SUMMARY | 2022-02-14 11:05 | XMS_ITS | Encounter Summary ---
:1960 Author Organization [facility] Address [address] [place] [address] Care Team Providers Name Role Phone Beatriz Maurice PA-C Primary Care Provider [phone] Encounter Details Date Type Department Care Team Description 02/05/2022 Lab Requisition [facility] Outr Resulting Lab, Pathology & Laboratory Provider [facility] [address] [place], [place] [address] Social History Tobacco Use Types Packs/Day Years Used Date Never Assessed Sex Assigned at Date Recorded Not on file documented as of this encounter Plan of Treatment Not on filedocumented as of this encounter Procedures Procedure Name Priority Date/Time Associated Diagnosis Comme nts IGG Routine 02/05/2022 8:10 EDT Results for this procedure are i n the results section . documented in this encounter Results IGG (02/05/2022 8:10 EDT) Pathologist Sig nature IgG 642 610-1,616 mg/dL [facility] LABORA TORY SERVICES Specimen Blood - Venous blood (substance) Performing Organization Address City/State/ZIP Code Phon e Number [facility]OR[facility] [address] [place] [address] SERVICES documented in this encounter Visit Diagnoses Not on filedocumented in this encounter Care Teams Laboratory Courier Relationship Specialty Start Date End Date Beatriz Maurice PA-C PCP - General 04/17/21 [address] [place] [address] documented as of this encounter
--- OUTSIDE RECORDS SUMMARY | 2022-02-14 11:05 | XMS_ITS | Encounter Summary ---
:1960 Author Organization [facility] Address [address] [place] [address] Care Team Providers Name Role Phone Beatriz Maurice PA-C Primary Care Provider [phone] Encounter Details Date Type Department Care Team Description 01/06/[address] [facility] Outr Resulting Lab, Pathology & Laboratory Provider [facility] acute hospital [address] [place], [place] [address] Social History Tobacco Use Types Packs/Day Years Used Date Never Assessed Sex Assigned at Date Recorded Not on file documented as of this encounter Plan of Treatment Not on filedocumented as of this encounter Procedures Procedure Name Priority Date/Time Associated Comments Diagnosis LEGIONELLA ANTIGEN Routine 01/05/2022 12:30 Resul ts for this DETECTION, URINE EDT procedure a re in the results section. documented in this encounter Results LEGIONELLA ANTIGEN DETECTION, URINE (01/05/2022 12:30 EDT) Pathologist Sig nature Legionella Antigen Negative Negative [facility] Detection LABORATORY SERVICES Specimen Urine Performing Organization Address City/State/ZIP Code Phon e Number [facility] LABORATORY [address] [place] [address] SERVICES documented in this encounter Visit Diagnoses Not on filedocumented in this encounter Care Teams Funeral Prearrangement Counselor Relationship Specialty Start Date End Date Beatriz Maurice PA-C PCP - General 04/17/21 [address] [place] [address] documented as of this encounter
--- OUTSIDE RECORDS SUMMARY | 2022-02-14 11:05 | XMS_ITS | Encounter Summary ---
:1960 Author Organization [facility] Address [address] [place] [address] Care Team Providers Name Role Phone Beatriz Maurice PA-C Primary Care Provider [phone] Encounter Details Date Type Department Care Team Description 05/01/2021 Lab Requisition [facility] Emilia Winters, Elevated white blood Pathology & SENIOR RECEPTIONIST cell count, Laboratory Medicine [address] [place], [place] [address]ified [place], [place] [address] [facility] [address] [place] [address] Social History Tobacco Use Types Packs/Day Years Used Date Never Assessed Sex Assigned at Date Recorded Not on file documented as of this encounter Plan of Treatment Not on filedocumented as of this encounter Procedures Procedure Name Priority Date/Time Associated Diagnosis Comme nts LEUKEMIA/LYMPHOMA Today 04/30/2021 7:00 EDT Elevated white b lood Results for this PANEL BY FLOW cell count, procedure are in CYTOMETRY unspecified the results section. documented in this encounter Results LEUKEMIA/LYMPHOMA PANEL BY FLOW CYTOMETRY (04/30/2021 7:00 EDT) Final Peripheral blood, flow cytometric analysis: [facility] Immunophenotypic - Increased myeloblasts (approximately 16%). Se e comment. CENTER Interpretation LABORATORY SERVICES Comment The results of flow [facility] cytometry show an CENTER increased population LABORATORY of myeloblasts, SERVICES accounting for approximately 16% of CD45+ gated events. Definitive enumeration of myeloblast percentage is best done in conjunction with morphologic evaluation; correlation of these findings with morphologic evaluation and clinical data is essential. Attestation There was [facility] Electronically significant CENTER signed by Denver syed, resident/fellow LABORATORY Gris Butts MD on involvement in the SERVICES 05/02/2021 at 1501 diagnostic evaluation of this case. By the signature below, the attending physician certifies that they have personally conducted a gross and/or microscopic examination of the described specimens and rendered or confirmed the above diagnosis. Clinical History 60 yo male with [facility] leukocytosis. CENTER LABORATORY SERVICES Description The specimen consists of per ipheral blood that has been prepared using ammonium chloride lysing agent. Gating is performed using CD45 fluorescence and side scatter. Cellular viability (assessed by propi [facility] dium iodide exclusion) is ex cellent (99%) among cells with CD45 and side scatter properties typical of lymphocytes and excellent (99%) among CD45+ events overall. Scatter plots incorporating all of the [facility] markers have been interprete d and evaluated for the presence or absence of abnormal cell populations. Only pertinent abnormal findings are included. If not otherwise addressed all other markers were normal/negative. LABORATORY SERVICES There is a population of mye loblasts accounting for approximately 16% of CD45+ events. The blasts are positive for CD34, CD117, HLA-DR, CD38, CD13, CD33, and spectrum CD7. A majority of the remaining lymphoid cells are T-lymphocytes (CD2+CD3+CD5+CD7+) with CD4+ and CD8+ subsets represented. The remaining lymphocytes are B- lymphocytes (CD19+CD20+) and NK-cells (CD2+CD3-CD1 6+CD56+). Among the B-cells, both kappa+ and lambda+ subsets are represented. The remainder of the CD45+ events is predominantly of myeloid lineage. Flow Markers CD2, CD3, CD4, CD5, [facility] CD7, CD8, CD10, CENTER CD11b, CD11c, CD13, LABORATORY CD14, CD16, CD19, SERVICES CD20, CD22, CD23, CD33, CD34, CD38, CD45, CD56, CD57, CD117, FMC7, HLADR, [place], and Lambda. FDA Disclaimer This test was [facility] developed and its CENTER performance LABORATORY characteristics SERVICES determined by the Department of Pathology and Laboratory Medicine, [facility], [place], [place] It has not been cleared or [...] to perform high complexity clinical laboratory testing. Resident/Fellow: Kj Bruno, [facility] LABORATORY SERVICES Scanned Images [facility] LABORATORY SERVICES Specimen Blood - Venous blood (substance) Performing Organization Address City/State/ZIP Code Phon e Number [facility] LABORATORY [address] [place] [address] SERVICES documented in this encounter Visit Diagnoses Diagnosis Elevated white blood cell count, unspeci fied documented in this encounter Care Teams Seed Potato Arranger Relationship Specialty Start Date End Date Beatriz Maurice PA-C PCP - General 04/17/21 [address] [place] [address] documented as of this encounter
--- OUTSIDE RECORDS SUMMARY | 2022-02-14 11:05 | XMS_ITS | Encounter Summary ---
:1960 Author Organization [facility] Address [address] [place] [address] Care Team Providers Name Role Phone Beatriz Maurice PA-C Primary Care Provider [phone] Encounter Details Date Type Department Care Team Description 01/03/2022 Lab Requisition [facility] Outr Resulting Lab, Pathology & Laboratory Provider [facility] [address] [place], [place] [id number] Social History Tobacco Use Types Packs/Day Years Used Date Never Assessed Sex Assigned at Date Recorded Not on file documented as of this encounter Plan of Treatment Not on filedocumented as of this encounter Procedures Procedure Name Priority Date/Time Associated Diagnosis Comme nts TACROLIMUS (FK506) Routine 01/03/2022 6:33 EDT Re sults for this procedure are i n the results section. documented in this encounter Results TACROLIMUS (FK506) (01/03/2022 6:33 EDT) Tacrolimus 3.8 See Note [facility] Comment: ng/mL LABORATORY NOTE: SERVICES Tacrolimus Therapeutic Range : 3-12 ng/mL (The goal level is based on clinical context). Assayed utilizing [employer] miluminescent technology. ??Values obtained using different assay methods cannot be used interchangeably. Specimen Blood - Venous blood (substance) Performing Organization Address City/State/ZIP Code Phon e Number [facility] [address] [place] [address] SERVICES documented in this encounter Visit Diagnoses Not on filedocumented in this encounter Care Teams Engineer Remote Control Diesel Relationship Specialty Start Date End Date Beatriz Maurice PA-C PCP - General 04/17/21 [address] [place] [address] documented as of this encounter
--- OUTSIDE RECORDS SUMMARY | 2022-02-14 11:05 | XMS_ITS | Encounter Summary ---
:1960 Author Organization [facility] Address [address] [place] [address] Care Team Providers Name Role Phone Beatriz Maurice PA-C Primary Care Provider [phone] Encounter Details Date Type Department Care Team Description 04/30/2021 Lab Requisition [facility] Outr Resulting Lab, Pathology & Laboratory Provider [facility] [address] [place], [place] [address] Social History Tobacco Use Types Packs/Day Years Used Date Never Assessed Sex Assigned at Date Recorded Not on file documented as of this encounter Plan of Treatment Not on filedocumented as of this encounter Procedures Procedure Name Priority Date/Time Associated Comments Diagnosis PSA TOTAL, Routine 04/29/2021 16:00 Results for this DIAGNOSTIC EDT procedure are i n the results section. documented in this encounter Results PSA TOTAL, DIAGNOSTIC (04/29/2021 16:00 EDT) Pathologist Sig nature PSA 2.1 0.0 - 4.5 ng/mL [facility] Specimen Blood - Venous blood (substance) Narrative [facility] - 04/30/2021 17:11 EDT NOTE: Serum PSA concentration should not be in terpreted as absolute evidence for the presence or absence of malignant disease. Assayed on Siem[employer] Centaur XPT usi ng chemiluminescent technology.??Values obtained by using different assay methods cannot be used interchangeably. Performing Organization Address City/State/ZIP Code Phon e Number [facility] [address] [place] [address] SERVICES documented in this encounter Visit Diagnoses Not on filedocumented in this encounter Care Teams Regional Agronomist Relationship Specialty Start Date End Date Beatriz Maurice PA-C PCP - General 04/17/[address] [place] [phone] documented as of this encounter
--- OUTSIDE RECORDS SUMMARY | 2022-02-14 11:05 | XMS_ITS | Encounter Summary ---
:1960 Author Organization [facility] Address [address] [place] [address] Care Team Providers Name Role Phone Unavailable Primary Care Provider Unavailable Encounter Details Date Type Department Care Team Description 11/14/2009 Results Only [facility] Latrice Leigh MD Laboratory Services - [facility] [address] [place], [place] [address] [place] [address] [phone] Social History Tobacco Use Types Packs/Day Years Used Date Never Assessed Sex Assigned at Date Recorded Not on file documented as of this encounter Plan of Treatment Not on filedocumented as of this encounter Procedures Procedure Name Priority Date/Time Associated Diagnosis Comme [facility] SURGICAL PATHOLOGY Routine 11/14/2009 0:00 EDT Re sults for this procedure are i n the results section. documented in this encounter Results SURGICAL PATHOLOGY (11/14/2009 0:00 EDT) Pathology Report: SURGICAL PATHOLOGY REPORT ? [facility] Reports generated via electr Mango-Mate interface contain original data; ? LAB however they are lacking the format of the original report. ? Caution should be taken when reading/interpreting unformatted reports. ? Name: ? LEANDRA, ANGELICA L ? Accession #: ? [id number] ? : ? 1960 (Age: 49) ??M ? Collec t Date: ? 11/14/2009 ? Location: ? [facility] ? R eceive Date: ? 11/15/2009 ? Provider: LATRICE READY MD ? Copy to: ? Final Pathologic Diagnosis: ? A. ?Skin of cee k, upper, excisional biopsy: ? 1. ?Melanocytic nevus, compound type, with unusual architectural ? features and mild cytologic atypia. ? - Nevus does not exte nd to margins of excisional biopsy specimen. ? B. ?? Skin of back, l ower midline, excisional biopsy: ?1. ?? Melanoc ytic nevus, compound type, with unusual architectural ? features and moderate ? cytologic at ypia. ?- Nevus does not ex tend to margins of excision specimen. ?- Nevus present approximately 0.5 mm from closest peripheral margin. ? Microscopic Description: ? (A) ?The epider mis is hyperplastic with elongate and anastomosing rete ?? ridges. ??There is a circums cribed proliferation of melanocytes with epidermal ?? and dermal components. ??The intraepidermal melanocytes are arranged in nests and as individual cells in a alejandrina tiginous pattern. ??The nests predominate and vary in size, shape, and spacing. ?? Some of the nests bridge between rete ridges. ? Although the individual ivan nocytes are unevenly spaced in some areas, they show no tendency toward confluent growth or upward migration. ??The melanocytes are ?? enlarged and show a mild deg ree of nuclear size and shape variation. ??The dermal component consists of nests and cords of similar melanocytes that show piston maker ?? maturation with descent. 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 ? (B) ?The epider mis is hyperplastic with elongate and anastomosing rete ?? ridges. ??There is a compoun d proliferation of melanocytes with both epidermal ?? and dermal components. ??The junctional melanocytes are arranged in nests and as individual cells. ??The nest s predominate but vary to moderate degree in size, ?? shape, and spacing. ??The ne sts are located between and the sides of rete ridges, in addition to at the tips o f the ridges. ??Nests bridge rete ridges. ??Focally, ?? individual melanocytes are p rominent and unevenly spaced but show no confluent ?? growth or well-developed upw svetlana migration. ??The melanocytes are enlarged and ? have ill-defined cytoplasm c ontaining melanin pigment. ??The nuclei show a ? moderate degree of size and shape variation with occasional large, irregular ? forms. ??The dermal componen t consists of nests and cords of similar melanocytes that show piston maker maturation with descent. ??There is papillary dermal ? fibroplasia. ??(Dr. Pardo)/drew n ? Document reviewed and electr onically signed by: ? Perlita Pardo MD ? Report ??Date: 11/19/2009 13 :25 ? By the signature above, the attending physician certifies that he/she has ? personally conducted a gross and/or microscopic examination of the described ? specimens and rendered or co nfirmed the above diagnosis. ? Specimen(s) Received: ? A. ?Excisional bx upper back ? B. ? Excision bx midline lower back ? Clinical History: ? Atypical nevi ??multi ple; multiple sunburns as child; fair skinned/blue eyed ? Gross Description: ? Received in formalin labelled Angelica Iverson and excisional bx upper back ?? atypical nevi is an unorien charlie elliptical excision of joya skin which measures ?? 1.2 x 0.7 cm and is excised to a depth of 0.3 cm. ??There is a central, ill ? defined, light brown area me asuring 0.4 x 0.4 cm. ??There is also a loosely ? attached portion of joay skin hanging from one edge of the specimen which ? measures 0.7 x 0.2 x 0.1 cm. ??The margins are inked black. ??The specimen is ? serially sectioned and catiar jae submitted as (A1) central sections and (A2) ? tips, reverse en face. ? Received in formalin ish Angelica Chavez and excisional bx lower midline ? back ??atypical nevi is an unoriented elliptical excision of joya-white skin ? measuring 1.1 x 0.6 cm and i s excised to a depth of 0.2 cm. ??There is a central, ill defined, brown macule me asuring 0.5 x 0.4 cm. ??The margins are inked black. The specimen is serially sec tioned and entirely submitted as (B1) central ? sections and (B2) tips, reve rse en face. ??(Ian Ocasio)/isela ? End of Report ? Specimen Performing Organization Address City/State/ZIP Code Phon e Number [facility] [address] [place] [address] SERVICES [facility] [address] [place] [address] documented in this encounter Visit Diagnoses Not on filedocumented in this encounter
--- OUTSIDE RECORDS SUMMARY | 2022-02-14 11:05 | XMS_ITS | Encounter Summary ---
:1960 Author Organization [facility] Address [address] [place] [address] Care Team Providers Name Role Phone Unknown, Provider Primary Care Provider Encounter Details Date Type Department Care Team Description 06/18/2011 Results Only [facility] Jose Angel Lima MD Laboratory Services - [address] [place] [address] [place] [address] [place] [address] [phone] Social History Tobacco Use Types Packs/Day Years Used Date Never Assessed Sex Assigned at Date Recorded Not on file documented as of this encounter Plan of Treatment Not on filedocumented as of this encounter Procedures Procedure Name Priority Date/Time Associated Diagnosis Comme [facility] SURGICAL PATHOLOGY Routine 06/18/2011 0:00 EDT Re sults for this procedure are i n the results section. documented in this encounter Results SURGICAL PATHOLOGY (06/18/2011 0:00 EDT) Pathology Report: SURGICAL PATHOLOGY REPORT [facility] Reports generated via electronic interface contain maureen ginal data; LAB however they are lacking the format of the original re port. Caution should be taken when reading/interpreting unfo rmatted reports. Name: ? ANGELICA IVERSON ? Accession #: ? [id number] ? : ? 1960 (Age: 50) ??M ? Collect Date: ? 06/18/2011 ? Location: ? [facility] ? Receive Date: ? 011 ? Provider: JOSE ANGEL LIMA MD Copy to: JIA HART MD ? Final Pathologic Diagnosis: A. ?Colon, ascending, polyp, biopsy: 1. ?Tubular adenoma. B. ?Colon, hepatic flexure, polyp, biopsy : 1. ?Hyperplastic polyp. C. ?Colon, descending, polyp, biopsy: 1. ?Tubular adenoma. D. ?Colon, sigmoid, polyps, biopsies: 1. ?Hyperplastic polyps. E. ?Rectum, polyps, biopsies: 1. ?Hyperplastic polyps. Document reviewed and electronically signed by: EVA ZEPEDA MD Report ??Date: 06/20/2011 11:28 By the signature above, the attending physician certif ies that he/she has personally conducted a gross and/or microscopic examin ation of the described specimens and rendered or confirmed the above diagnosi s. Specimen(s) Received: A. ?Ascending colon polyp (#1) B. ? Hepatic flexure polyp (#2) C. ? Descending colon polyp (#3) D. ? Sigmoid polyps x 2 (#4) E. ? Rectal polyps x 2 (#5) Clinical History: ? Colorectal screen Gross Description: ? Received in formalin labelled Angelica Iverson and ascending colon polyp are five joya-pink tissue fragments ranging from 0.2 x 0.2 x 0.2 cm to 0.4 x 0.2 x 0.2 cm. ??The specimen is entirely submitted as (A1) a nd (A2). Received in formalin labelled Angelica Iverson and hepat ic flexure polyp is a joya-pink 0.4 x 0.3 x 0.2 cm tissue submitted as (B). Received in formalin ish d Angelica Iverson and descending colon polyp are two joya-pink tissue fragments averaging 0.3 x 0.2 x 0.2 cm . ??The specimen is entirely submitted as (C). Received in formalin labelled Angelica Iverson and sigmo id polyps are two joya-pink tissue fragments measuring 0.4 x 0.2 x 0.2 cm and 0.5 x 0.2 x 0.2 cm. The specimen is entirely submitted as (D). Received in formalin ish d Angelica Iverson and rectal polyps are two joya-pink tissue fragments measuring 0.2 x 0.2 x 0.2 cm and 0.3 x 0.3 x 0.3 cm. ??The specimen is entirely submitted as (E). 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
--- OUTSIDE RECORDS SUMMARY | 2022-02-14 11:05 | XMS_ITS | Encounter Summary ---
:1960 Author Organization [facility] Address [address] [place] [address] Care Team Providers Name Role Phone Unknown, Provider Primary Care Provider Encounter Details Date Type Department Care Team Description 07/19/2003 Results Only [facility] - Angelica Mann MD conversion [address] [place] [phone] Social History Tobacco Use Types Packs/Day Years Used Date Never Assessed Sex Assigned at Date Recorded Not on file documented as of this encounter Plan of Treatment Not on filedocumented as of this encounter Procedures Procedure Name Priority Date/Time Associated Diagnosis Comme [facility] SURGICAL PATHOLOGY Routine 07/19/2003 0:00 EST Re sults for this procedure are i n the results section. documented in this encounter Results SURGICAL PATHOLOGY (07/19/2003 0:00 EST) Pathology Report: SURGICAL PATHOLOGY REPORT [facility] GTZ Reports generated via electronic interface contain maureen ginal data; LAB however they are lacking the format of the original re port. Caution should be taken when reading/interpreting unfo rmatted reports. Name: ? ANGELICA IVERSON ? Accession #: ? [id number] ? : ? 1960 (Age: 42) ??M ? Collect Date: ? 07/19/2003 ? Location: ? [facility] ? Receive Date: ? 003 ? Provider: PETRONA SALAS MD Copy to: ANGELICA MA MD ? Final Pathologic Diagnosis: A. ?Stomach, body, polyp, biopsy: 1. ?Gastric fun dic mucosa with mild chronic gastritis and foveolar hyperplasia. ??See comment. 2. ?No active gastritis identified. 3. ?No Helicobacter pylori-like nena roorganisms identified on H&E stained-sections. 4. ?No dysplasia identified. B. ?Gastroesophageal junction, biopsy: 1. ?Squamous ep ithelium with eosinophil infiltrate consistent with reflux esophagitis. 2. ?Gastric car roxana-type mucosa with focally active chronic gastritis. 3. ?No Helicobacter pylori-like microorga nisms identified on H&E-stained sections. 4. ?No intestinal metaplasia identified. Comment: ? Deeper sections of (A ) have been examined. ??Bowl Sander sections of (A) have been reviewed at intradepartmental consultation c onference. ??(Dr. Monterroso)/[facility] Document reviewed and electronically signed by: EVA MONTERROSO MD Report ??Date: 07/24/2003 09:52 By the signature above, the attending physician certif ies that he/she has personally conducted a gross and/or microscopic examin ation of the described specimens and rendered or confirmed the above diagnosi s. Specimen(s) Received: A. ?Polyp body of stomach (#1) B. ?Bx GE junction (#2) Clinical History: ? Heartburn; R/O GERD, gastric polyp Gross Description: ? Received in Hollande' s fixative labeled Kishor and polyp body of stomach is a joya-pink, 0.5 x 0.2 x 0.2 cm soft tissue fragment . ??The specimen is entirely submitted as (A). Received in Hollande's fixative labeled Kishor and b x GE junction is a joya-pink, 0.2 x 0.2 x 0.2 cm soft tissue fragmen t. ??The specimen is entirely submitted as (B). ??(Ninoska Adamson)/lorrie ?? End of Report Specimen Performing Organization Address City/State/ZIP Code Phon e Number [facility] [address] [place] [address] SERVICES [facility] [address] [place] [address] documented in this encounter Visit Diagnoses Not on filedocumented in this encounter Care Teams Hat Blocker Relationship Specialty Start Date End Date Unknown, Provider, PCP - General 11/19/09 04/16/21 documented as of this encounter
--- OUTSIDE RECORDS SUMMARY | 2022-02-14 11:05 | XMS_ITS | Encounter Summary ---
:1960 Author Organization [facility] Address [address] [place] [address] Care Team Providers Name Role Phone Beatriz Maurice PA-C Primary Care Provider [phone] Encounter Details Date Type Department Care Team Description 02/14/2022 Lab Requisition [facility] Outr Resulting Lab, Pathology & Laboratory Provider [facility] [address] [place] [address] Social History Tobacco Use Types Packs/Day Years Used Date Never Assessed Sex Assigned at Date Recorded Not on file documented as of this encounter Plan of Treatment Scheduled Orders Name Type Priority Associated Diagnoses Order S chedule LYME AB Lab Routine Ordered: 2021 documented as of this encounter Visit Diagnoses Not on filedocumented in this encounter Care Teams Conference Reservationist Relationship Specialty Start Date End Date Beatriz Maurice PA-C PCP - General 04/17/21 [address] [place] [address] documented as of this encounter
--- OUTSIDE RECORDS SUMMARY | 2022-02-14 11:05 | XMS_ITS | Encounter Summary ---
:1960 Author Organization [facility] Address [address] [place] [address] Care Team Providers Name Role Phone Beatriz Maurice PA-C Primary Care Provider [phone] Encounter Details Date Type Department Care Team Description 02/14/2022 Lab Requisition [facility] Outr Resulting Lab, Pathology & Laboratory Provider [facility] [address] [place] [address] Social History Tobacco Use Types Packs/Day Years Used Date Never Assessed Sex Assigned at Date Recorded Not on file documented as of this encounter Plan of Treatment Scheduled Orders Name Type Priority Associated Diagnoses Order S chedule TACROLIMUS (FK506) Lab Routine Ordered: 02/14/2022 documented as of this encounter Visit Diagnoses Not on filedocumented in this encounter Care Teams Multiple Effect Evaporator Operator Relationship Specialty Start Date End Date Beatriz Maurice PA-C PCP - General 04/17/21 [address] [place] [address] documented as of this encounter
--- OUTSIDE RECORDS SUMMARY | 2022-02-14 11:06 | XMS_ITS | Clinical Summary ---
:1960 Author Organization [facility] [place] [address] Care Team Providers Name Role Phone Beatriz Maurice Primary Care Provider Allergies Active Allergy Reactions Severity Noted Date Comments Chlorhexidine Gluconate Itching, Rash 10/15/2021 CHG wipes reported he gets a rash and is itchy. 01/27/22 pt repo rts the CHG for port ac cess prep and the bi opatch are ok. Cefepime 01/17/2022 Encephalopathy Unclassified Drug Other (See Medium 05/25/2021 Artificial Comments) Sweetners-light headedne ss, dizziness Medications Medication Sig Dispensed Refills Start Date End Date Status Ostomy Supplies Dispense 2 boxes ( 20 each 11 08/20/2021 Active Misc 10/box) of Adapt Barrier rings #[id number] per month. Ostomy Supplies Dispense 1 bottle of 28.3 g 5 08/20/2021 Active Powder Adapt stoma powder #[id number] every other month. Ostomy Supplies Dispense 2 boxes 20 each 11 08/20/2021 Active Misc (10/box) of Sensura [place] Soft Convex One-piece Pouch #[id number] per month. Ostomy Supplies Dispense 2 boxes 40 each 11 08/20/2021 Active Misc (20/box) of Brava Elastic Barrier strips #[id number] per month. Ostomy Supplies Dispense 1 box 50 each 11 08/20/2021 Active Misc (50/box) of a generic no-sting skin barrier wipe per month. lidocaine-prilocain Apply to mediport 30 g 0 10/04/2021 Active e (EMLA) Cream approximately 30 minutes prior to access. Additional Information Patient not taking. Reported on 02/10/2022 tamsulosin (Flomax) 0.4 mg Take 1 capsule by mouth 90 tablet 0 11/18/2021 Active Capsule daily. flecainide (TAMBOCOR) 50 mg Take 1 tablet by mouth 2 60 tablet 3 11/18/2021 Active Tablet times daily. metoprolol tartrate Take 1 tablet by mouth 30 tablet 5 022 Active (Lopressor) 25 mg Tablet daily. ondansetron (Zofran) 8 mg Take 1 tablet by mouth 20 tablet 1 0 11/28/2021 Active Tablet every 8 hours as needed for Nausea. Additional Information Patient not taking. Reported on 02/10/2022 Colostomy Belt (Ostomy Dispense 1 Sensura 1 each 12/18/19 22 Active Belt Medium) [facility] Belt #[id number] per month. predniSONE (Deltasone) Take 3 tablets by 90 tablet 2 2 Active 10 mg Tablet mouth every morning. Take with food. tacrolimus (Prograf) Take 2-3 capsules by 60 capsule 3 022 Active 0.5 mg mouth 2 times daily. CapsuleIndications: Take 2 capsules Acute myeloid leukemia (1mg) in the in remission morning. Take 3 capsules (1.5mg) at night. Ostomy Supplies Dispense 2 boxes 20 each 01/27/2022 Active MiscIndications: (10/box) of Adapt Attention to ileostomy Convex Ring #[id number] per month. Patient it to use one with each pouch change every other day. apixaban (Eliquis) 5 mg Take 1 tablet by 60 tablet 5 2 Active Tablet mouth 2 times daily. fluconazole (Diflucan) Take 1 tablet by 30 tablet 5 02/03/2022 Active 200 mg Tablet mouth daily. pantoprazole EC Take 1 tablet by 90 tablet 3 02/03/2022 Active (Protonix) 40 mg mouth daily. Tablet, Delayed Release (E.C.) loperamide (Imodium Take 1 capsule by 90 tablet 1 02/03/2022 Active A-D) 2 mg Capsule mouth 3 times daily. acyclovir (Zovirax) 800 Take 1 tablet by 60 tablet 11 2 Active mg Tablet mouth 2 times daily. vancomycin (Vancocin) Take 1 capsule by 60 capsule 5 2 Active 125 mg Capsule mouth 2 times daily. Magnesium Oxide-Mg AA Take 3 tablets by 270 tablet 3 2 Active Chelate (Mg-Plus) 133 mouth 3 times daily. mg Tablet rosuvastatin (Crestor) Take 1 tablet by 90 tablet 3 02/10/2022 Active 40 mg Tablet mouth daily. clotrimazole (Mycelex) Take 1 tablet by 50 tablet 1 02/10/2022 02/20/2022 Active 10 mg Will mouth 5 times daily for 10 days. For treatment of oral yeast infection. Active Problems Problem Noted Date Sepsis 01/06/2022 Severe protein-calorie malnutrition 12/14/2021 Overview: < or equal to 50% of estimated energy re quirement for > or equal to 5 days and >5% weight loss in 1 month is consistent with severe protein-calorie malnutrition in the setting of acute illness or injury related to chronic AML diagnos is and treatment. (Alis et al, JPEN J Parenteral Enteral Nutr. 2012 December; 36(3): 273-83) Failure to thrive in adult 12/13/2021 Hypomagnesemia 11/26/2021 S/P allogeneic bone marrow transplant 11/22/2021 STACIE (acute kidney injury) 11/22/2021 Dehydration 11/22/2021 AML (acute myeloblastic leukemia) 07/10/2021 Attention to ileostomy 07/04/2021 Clostridium difficile colitis 06/19/2021 Paroxysmal atrial fibrillation GERD (gastroesophageal reflux disease) BPH (benign prostatic hyperplasia) Resolved Problems Problem Noted Date Resolved Date Acute leukemia 05/06/2021 12/20/2021 Encounters Date Type Specialty Care Team Description 02/13/2022 Telephone Hematology and Daisy Gould Oncology MD Dago 02/13/2022 Telephone Hematology and Annika Geller press breaker 02/12/2022 Telephone Hematology and Yazmin Ramirez, Follow-u p ; press breakersnowboarding instructor Faith andre 02/12/2022 Telephone Hematology and Rene, Claudia E Prior Auth orization Oncology 02/11/2022 Telephone Hematology and Annika Geller press breaker 02/10/2022 Office Visit Hematology and Ly, S/P allogenei c bone marrow transplant; Oncology Allyssa Givens Acute myeloid leukemia in remission; Miroslava Pelayo, Failure to thrive in adult; CAFETERIA MONITOR Anemia of chronic disease; Hayley Palmer, Stage 3 c hronic kidney disease, unspecified whether stage 3a or 3b CKD; CAFETERIA MONITOR 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 02/10/2022 Hospital Encounter Hematology and Attenti on to Oncology ileostomy 02/10/2022 Hospital Encounter Hematology and S/P all ogeneic bone marrow transplant; Oncology Hypomagnesemia; STACIE (acute kidn ey injury); H/O Clostridium difficile infection; Colostomy in pl kena; Acute leukemia in remission; Anemia in neopl astic disease; Weakness acquir ed in ICU; Dehydration; Thrombocytopeni a; Debility 02/10/2022 Hospital Encounter Hematology and Hypomag nesemia; Oncology S/P allogeneic bone marrow transplant; Acute myeloid l eukemia in remission 02/10/2022 Orders Only Hematology and Miroslava Pelayo, Oncology CAFETERIA MONITOR 02/06/2022 Orders Only Hematology and Ly Oncology Dilshad Crews MD 02/05/2022 Infusion Hematology and Hypomagnesemi a; Oncology S/P allogeneic bone marrow transplant; Acute myeloid l eukemia in remission 02/05/2022 Orders Only Hematology and Hayley Palmer, Oncology CAFETERIA MONITOR 02/04/2022 Telephone Hematology and Annika Geller press breaker 02/03/2022 Tech Visit Vascular Surgery Estevan Doherty, RVT S/P a llogeneic bone marrow transpla nt 02/03/2022 Office Visit Hematology and Ly, STACIE (acute ki dney injury) (Primary Dx); Oncology Allyssa Givens Hypomagnesemia; Miroslava Pelayo, Acute leuk emia in remission; CAFETERIA MONITOR S/P partial resection of colon; Hayley Palmer, S/P allog eneic bone marrow transplant; CAFETERIA MONITOR H/O Clostridium difficile infection; Anemia in neopl astic disease; Thrombocytopeni a; Colostomy in pl kena 02/03/2022 Hospital Encounter Hematology and Hypomag nesemia; Oncology S/P allogeneic bone marrow transplant; Acute myeloid l eukemia in remission 02/03/2022 Hospital Encounter Hematology and Hypomag nesemia; Oncology STACIE (acute kidn ey injury); Thrombocytopeni a; Anemia in neopl astic disease; Weakness acquir ed in ICU; Debility; H/O Clostridium difficile infection; Colostomy in pl kena; Acute leukemia in remission; S/P allogeneic bone marrow transplant; Dehydration 02/03/2022 Telephone Hematology and Qi Zambrano back shoe worker 02/03/2022 Telephone Hematology and Angélica Garza RN 01/30/2022 Telephone Hematology and Cortney Givens RD Oncology 01/28/2022 Orders Only Hematology and Ly Oncology Dilshad Crews MD 01/27/2022 Hospital Encounter Hematology and Hypomag nesemia; Oncology S/P allogeneic bone marrow transplant; Acute myeloid l eukemia in remission 01/27/2022 Office Visit Wound Care Attention to ileostomy 01/27/2022 Office Visit Hematology and Ly, Hyperkalemia Oncology Allyssa Givens Diane M, CAFETERIA MONITOR Hayley Palmer CAFETERIA MONITOR 01/27/2022 Hospital Encounter Hematology and S/P all ogeneic bone marrow transplant; Oncology Hypomagnesemia; STACIE (acute kidn ey injury); H/O Clostridium difficile infection; Colostomy in pl kena; Acute leukemia in remission; Anemia in neopl astic disease; Weakness acquir ed in ICU; Dehydration; Thrombocytopeni a; Debility 01/22/2022 Telephone Hematology and Yazmin Ramirez press breaker 01/21/2022 Telephone Hematology and Cortney Givens RD Oncology 01/21/2022 Orders Only Hematology and Hayley Palmer, S/P all ogeneic bone marrow transplant; Oncology CAFETERIA MONITOR Acute myeloid l eukemia in remission 01/20/2022 Office Visit Hematology and Ly Hypomagnesemi a; Oncology Dilshad Crews MD STACIE (acute kidney injury); Thrombocytopeni a; Anemia in neopl astic disease; Weakness acquir ed in ICU; Debility 01/20/2022 Hospital Encounter Hematology and Hypomag nesemia; Oncology S/P allogeneic bone marrow transplant; Acute myeloid l eukemia in remission; STACIE (acute kidn ey injury); Dehydration 01/20/2022 Hospital Encounter Hematology and Attenti on to Oncology ileostomy 01/20/2022 Hospital Encounter Hematology and Hypomag nesemia; Oncology STACIE (acute kidn ey injury); Thrombocytopeni a; Anemia in neopl astic disease; Weakness acquir ed in ICU; Debility; H/O Clostridium difficile infection; Colostomy in pl kena; Acute leukemia in remission; S/P allogeneic bone marrow transplant; Dehydration 01/20/2022 Orders Only Wound Care Serenity Frey, Attention to RN ileostomy (Prim kvng Dx) 01/20/2022 Telephone Hematology and Yazmin Ramirez, Referral , Vna; press breaker Medical Care Coordination 01/17/2022 Office Visit Wound Care Attention to ileostomy 01/17/2022 Hospital Encounter Hematology and Hypomag nesemia; Oncology S/P allogeneic bone marrow transplant; Acute myeloid l eukemia in remission 01/17/2022 Office Visit Hematology and Ly, S/P allogenei c bone marrow transplant (Primary Dx); Oncology Allyssa Givens Hypomagnesemia; Miroslava Pelayo, STACIE (acute kidney injury); CAFETERIA MONITOR Failure to thrive in adult; Hayley Palmer, Acute ortiz kemia in remission; CAFETERIA MONITOR Thrombocytopeni a; S/P partial res ection of colon; Chronic atrial fibrillation; Anemia in neopl astic disease 01/17/2022 Hospital Encounter Hematology and Anemia in neoplastic disease; Oncology Hypomagnesemia; STACIE (acute kidn ey injury); H/O Clostridium difficile infection; Colostomy in pl kena; Acute leukemia in remission; Weakness acquir ed in ICU; S/P allogeneic bone marrow transplant; Dehydration 01/16/2022 Telephone Hematology and Annika Geller press breaker 01/06/2022 Hospital Encounter Sreedhar Mcgill atrial fibrillation; - MD Moisés Acute myeloid leukemia in remission 01/14/2022 Dilshad Osullivan M D Preis, Meir, MD 01/05/2022 Telephone Hematology and Kostas Quiros MD Oncology 01/04/2022 Ancillary Radiology Josafat, Beatriz Butts PA 01/04/2022 Telephone Hematology and Rain Dumont Oncology Kallie Butts MD 01/02/2022 Telephone Hematology and Annika Geller press breaker 12/31/2021 Telephone Hematology and Annika Geller press breaker 12/30/2021 Telephone Hematology and Rain Dumont Oncology Kallie Butts MD 12/30/2021 Telephone Hematology and Kostas Quiros MD Oncology 12/29/2021 Ancillary Radiology Beatriz Maurice Procedure L, PA 12/29/2021 Ancillary Radiology Beatriz Maurice Procedure L, PA 12/26/2021 Infusion Hematology and Hypomagnesemi a; Oncology S/P allogeneic bone marrow transplant; Acute myeloid l eukemia in remission; STACIE (acute kidn ey injury); Dehydration 12/26/2021 Telephone Hematology and Yazmin Ramirez Follow-u p press breaker 12/24/2021 Orders Only Hematology and Ly Oncology Dilshad Crews MD 12/24/2021 Telephone Hematology and Annika Santos Oncology 12/23/2021 Surgery Surgery Ly, (OSC MSURG) CELINE Crews MD MARROW BIO PSY AND ASPIRATION; DIAGNOSTIC 12/23/2021 Hospital Encounter Surgery Dilshad Osullivan MD 12/23/2021 Office Visit Hematology and Miroslava Pelayo, Hypomagn esemia; Oncology CAFETERIA MONITOR Severe protein-calorie malnutrition; Hayley Palmer, S/P allog eneic bone marrow transplant; CAFETERIA MONITOR STACIE (acute kidn ey injury); Acute myeloid l eukemia in remission; Failure to thri ve in adult 12/23/2021 Hospital Encounter Hematology and Hypomag nesemia; Oncology S/P allogeneic bone marrow transplant; Acute myeloid l eukemia in remission; STACIE (acute kidn ey injury); Dehydration 12/23/2021 Hospital Encounter Hematology and Hypomag nesemia; Oncology STACIE (acute kidn ey injury); H/O Clostridium difficile infection; Colostomy in pl kena; Acute leukemia in remission; Anemia in neopl astic disease; Weakness acquir ed in ICU; S/P allogeneic bone marrow transplant; Dehydration 12/20/2021 Office Visit Hematology and Miroslava Pelayo, Hypomagn esemia; Oncology CAFETERIA MONITOR Failure to thrive in adult; Hayley Palmer, S/P allog eneic bone marrow transplant; CAFETERIA MONITOR Acute leukemia in remission 12/20/2021 Hospital Encounter Hematology and Hypomag nesemia; Oncology S/P allogeneic bone marrow transplant; Acute myeloid l eukemia in remission; STACIE (acute kidn ey injury); Dehydration 12/20/2021 Hospital Encounter Hematology and Hypomag nesemia; Oncology STACIE (acute kidn ey injury); H/O Clostridium difficile infection; Colostomy in pl kena; Acute leukemia in remission; Anemia in neopl astic disease; Weakness acquir ed in ICU; S/P allogeneic bone marrow transplant; Dehydration 12/20/2021 Unscheduled Hematology and Cortney Givens RD Severe Encounter Oncology protein-calorie malnutrition 12/19/2021 Telephone Hematology and Cortney Givens RD Oncology 12/19/2021 Telephone Hematology and Annika Santos Oncology 12/18/2021 Telephone Hematology and Yazmin Ramirez Medical Care press breaker Coordination 12/17/2021 Telephone Hematology and Gayle Reyes press breaker 12/16/2021 Specialty Pharmacy Pharmacy Izzy Hernandez y Pharmacy Review (Venclex ta Tablet ) 12/13/2021 Hospital Encounter Ly, Anneagne semia; - Allyssa Givens S/P allogeneic bone marrow transplant; 12/17/2021 Urban Dos Santos M D Acute myeloid leukemia in remission; Khalif Carcamo STACIE (acut e kidney injury); Dehydration; Failure to thri ve in adult 12/13/2021 Office Visit Hematology and Ly, Failure to th rive in adult; Oncology Allyssa Givens Hypomagnesemia; Miroslava Pelayo, H/O Clostr idium difficile infection; CAFETERIA MONITOR Acute leukemia in remission; Hayley Palmer, S/P allog eneic bone marrow transplant; CAFETERIA MONITOR Dehydration; STACIE (acute kidn ey injury) 12/13/2021 Hospital Encounter Hematology and Hypomag nesemia; Oncology STACIE (acute kidn ey injury); H/O Clostridium difficile infection; Colostomy in pl kena; Acute leukemia in remission; Anemia in neopl astic disease; Weakness acquir ed in ICU; S/P allogeneic bone marrow transplant; Dehydration 12/13/2021 Hospital Encounter Urban Dos Santos MD Hypo magnesemia 12/13/2021 Notes Only Hematology and Nichelle Barnard, Oncology FINE ARTS TEACHER 12/12/2021 Infusion Hematology and Hypomagnesemi a; Oncology S/P allogeneic bone marrow transplant; Acute myeloid l eukemia in remission 12/12/2021 Telephone Hematology and Annika Geller press breaker 12/12/2021 Notes Only Hematology and Sally Osullivan MD 12/12/2021 Orders Only Hematology and Sally Osullivan MD 12/09/2021 Office Visit Hematology and Ly, S/P allogenei c bone marrow transplant; Oncology Allyssa Givens STACIE (acute kidney injury); Miroslava Pelayo, Colostomy in place; CAFETERIA MONITOR Anemia in neoplastic disease; Hayley Palmer, Dehydrati on; CAFETERIA MONITOR Thrombocytopeni a; Hypomagnesemia; Acute leukemia in remission; Weakness acquir ed in ICU; Debility 12/09/2021 Hospital Encounter Hematology and Hypomag nesemia; Oncology S/P allogeneic bone marrow transplant; Acute myeloid l eukemia in remission 12/09/2021 Hospital Encounter Hematology and S/P all ogeneic bone marrow transplant; Oncology Hypomagnesemia; STACIE (acute kidn ey injury); H/O Clostridium difficile infection; Colostomy in pl kena; Acute leukemia in remission; Anemia in neopl astic disease; Weakness acquir ed in ICU; Dehydration 12/06/2021 Telephone Hematology and Annika Geller press breaker 12/06/2021 Orders Only Hematology and Sally Osullivan MD 12/05/2021 Infusion Hematology and Hypomagnesemi a; Oncology S/P allogeneic bone marrow transplant; Acute myeloid l eukemia in remission; STACIE (acute kidn ey injury); Dehydration 12/05/2021 Orders Only Hematology and Hayley Palmer, Oncology CAFETERIA MONITOR 12/04/2021 Telephone Hematology and Annika Geller press breaker 12/03/2021 Telephone Hematology and Cortney Givens RD Oncology 12/02/2021 Office Visit Hematology and [place], S/P allogenei c bone marrow transplant (Primary Dx); Oncology Allyssa Givens Hypomagnesemia; Miroslava Pelayo, STACIE (acute kidney injury); CAFETERIA MONITOR H/O Clostridium difficile infection; Hayley Palmer, Colostomy in place; CAFETERIA MONITOR Acute leukemia in remission; Anemia in neopl astic disease; Weakness acquir ed in ICU; Dehydration; Acute myeloid l eukemia in remission 12/02/2021 Hospital Encounter Hematology and Hypomag nesemia; Oncology S/P allogeneic bone marrow transplant; Acute myeloid l eukemia in remission 12/02/2021 Hospital Encounter Hematology and S/P all ogeneic bone marrow transplant; Oncology Hypomagnesemia; STACIE (acute kidn ey injury); H/O Clostridium difficile infection; Colostomy in pl kena; Acute leukemia in remission; Anemia in neopl astic disease; Weakness acquir ed in ICU; Dehydration 12/02/2021 External Results Hematology and Ly, Oncology Dilshad Crews MD 11/29/2021 Infusion Hematology and Hypomagnesemi a; Oncology S/P allogeneic bone marrow transplant; Acute myeloid l eukemia in remission; STACIE (acute kidn ey injury); Dehydration 11/28/2021 Infusion Hematology and Hypomagnesemi a; Oncology S/P allogeneic bone marrow transplant; Acute myeloid l eukemia in remission; STACIE (acute kidn ey injury); Dehydration 11/28/2021 Orders Only Hematology and Hayley Palmer, Oncology CAFETERIA MONITOR 11/28/2021 Orders Only Hematology and Hayley Palmer, Oncology CAFETERIA MONITOR 11/28/2021 Notes Only Hematology and Jaquelin Muller, Oncology FINE ARTS TEACHER 11/28/2021 Telephone Hematology and Annika Geller press breaker 11/26/2021 Orders Only Hematology and Hayley Palmer, S/P all ogeneic bone marrow transplant; Oncology CAFETERIA MONITOR Acute myeloid l eukemia in remission; STACIE (acute kidn ey injury); Hypomagnesemia 11/26/2021 Telephone Hematology and Nichelle Barnard, Other ( Apply for PR Oncology [facility] Medicaid.) 11/25/2021 Office Visit Wound Care Attention to ileostomy 11/25/2021 Office Visit Hematology and Ly, S/P allogenei c bone marrow transplant; Oncology Allyssa Givens Acute myeloid leukemia in remission Miroslava Pelayo, CAFETERIA MONITOR Hayley Palmer, CAFETERIA MONITOR 11/25/2021 Hospital Encounter Hematology and S/P all ogeneic bone marrow transplant; Oncology Acute myeloid l eukemia in remission 11/25/2021 Hospital Encounter Hematology and S/P all ogeneic bone marrow transplant; Oncology Acute myeloid l eukemia in remission 11/22/2021 Hospital Encounter Hematology and S/P all ogeneic bone marrow transplant; Oncology Acute myeloid l eukemia in remission 11/22/2021 Office Visit Hematology and Ly, S/P allogenei c bone marrow transplant; Oncology Allyssa Givens Acute myeloid leukemia in remission Miroslava Pelayo, Hayley Noland APRN 11/22/2021 Hospital Encounter Hematology and S/P all ogeneic bone marrow transplant; Oncology Acute myeloid l eukemia in remission 11/22/2021 Notes Only Hematology and Nichelle Barnard, Oncology FINE ARTS TEACHER 11/18/2021 Telephone Hematology and Annika Geller press breaker 10/15/2021 Hospital Encounter Angelica Goodrich Jr., [place] xysmal atrial fibrillation; - Acute myeloid leukemia in remission; 11/18/2021 Sona Freitas, Bacteremia ; Cerebrovascular accident (CVA), unspecif ied mechanism; Urban Dos Santos M D Acute myeloid leukemia not having achiev ed remission Khloe Richardson MD Sullivan, Matthew R, MD Lowrey, Christopher H, MD from Last 3 Months Immunizations Name Administration Dates Next Due Pneumococcal Polyvalent 23 02/08/2004 Td, adult 08/17/1998 Family History Medical History Relation Comments Lung Cancer Father Relation Status Comments Father Social History Tobacco Use Types Packs/Day Years Used Date Never Smoker Smokeless Tobacco: Never Used Alcohol Use Standard Drinks/Week Comments Not Currently 0 (1 standard drink = 0.6 oz pure alcoho l) 5 drinks/year Alcohol Habits Answer Date Recorded How often do you have a drink containing alcohol? Not asked How many drinks containing alcohol do you have on a Not aske d typical day when you are drinking? How often do you have six or more drinks on one occasion? No t asked Comment: 5 drinks/year 05/06/2021 Sex Assigned at Date Recorded Not on file Last Filed Vital Signs Vital Sign Reading Time Taken Comments Blood Pressure 114/84 02/10/2022 9:30 AM EDT Pulse 87 02/10/2022 9:30 AM EDT Temperature 35.8 ??C (96.4 ??F) 02/10/2022 9:30 AM EDT Respiratory Rate 15 02/10/2022 9:30 AM EDT Oxygen Saturation 99% 02/10/2022 9:30 AM EDT Inhaled Oxygen Concentration - - Weight 83.5 kg (184 lb) 02/10/2022 9:30 AM EDT Height 178 cm (5' 10.08) 02/10/2022 9:30 AM EDT Body Mass Index 26.34 02/10/2022 9:30 AM EDT Plan of Treatment Upcoming Encounters Date Type Specialty Care Team Description 02/18/2022 Infusion Hematology and Oncology 02/21/2022 Infusion Hematology and Oncology 02/24/2022 Appointment Hematology and Oncology 02/24/2022 Office Visit Hematology and Oncology Dilshad Osullivan MD [facility] DR HEMATOLOGY/[place] [address] Miroslava Pelayo APRN [facility] DR HEMATOLOGY/[place] [address] 02/24/2022 Office Visit Wound Care 02/24/2022 Appointment Hematology and Oncology 02/26/2022 Office Visit Neurology Leni Bustamante MD [facility] DR NEUROLOGY DEPT. [place], [place] [address] (Wo rk) Health Maintenance Due Date Last Done Comments Covid-19 Vaccine (#1) 1965 HIV screen 1978 Hepatitis C Screening 1978 Tdap adult 1979 Zoster vaccine (1 of 2) 1979 Pneumococcal Vaccine: At-Risk 02/07/2005 02/08/2004 5-64yrs (2 - PCV) Colonoscopy 2005 Tetanus vaccine 08/17/2008 08/17/1998 Influenza (Flu) vaccine (1 of 1 - 04/17/2022 Influenza standard series) Diabetes Screening (HgbA1C or 02/10/2025 02/10/2022, 2021, Glucose) 01/27/2022, Additional history exists Medical Devices Implanted Type Area Build Automation Engineer Device Shelf Model / Identifier Expiration Serial / Date Lot Mediport-10/04/2021 Mediport Right: 04/16/2026 [id number] / Implanted: Qty: 1 on 10/04/2021 by Kelli Diaz PA Chest / [id number] Procedures Procedure Name Priority Date/Time Associated Comments Diagnosis TYPE AND SCREEN VALIDITY STAT 02/10/2022 8:45 Results for this AM EDT procedure are i n the results section. ABORH RECHECK STATUS STAT 02/10/2022 8:45 Resu lts for this AM EDT procedure are i n the results section. ANTIBODY SCREEN STAT 02/10/2022 8:45 Anemia in Results f or this AM EDT neoplastic disease procedure are in the results section. ABO/RH TYPING STAT 02/10/2022 8:45 Anemia in Results for this AM EDT neoplastic disease procedure are in the results section. DIFFERENTIAL, AUTOMATED STAT 02/10/2022 8:45 Hypomagn esemia Results for this AM EDT STACIE (acute kidney procedure are in injury) the results H/O Clostridium section. 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 in neoplastic disea se Weakness acquired in ICU S/P allogeneic bone marrow transplan t Dehydration HEMOGRAM STAT 02/10/2022 8:45 Hypomagnesemia Results for this AM EDT STACIE (acute kidney procedure are in injury) the results H/O Clostridium section. 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 in neoplastic disea se Weakness acquired in ICU S/P allogeneic bone marrow transplan t Dehydration HC ANTIBODY STAT 02/10/2022 8:45 Anemia in DETECTION,CAPTURE-R AM EDT neoplastic disease HC [id number] (TACROLIMUS) STAT 02/10/2022 8:45 Hypomagne semia Results for this AM EDT STACIE (acute kidney procedure are in injury) the results Thrombocytopenia section. Anemia in neoplastic disea se Weakness acquired in ICU Debility HC MAGNESIUM, SERUM Routine 02/10/2022 8:45 Hypomagnesem ia Results for this AM EDT STACIE (acute kidney procedure are in injury) the results H/O Clostridium section. 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 HC IGG, SERUM Routine 02/10/2022 8:45 S/P allogeneic bone Resu lts for this AM EDT marrow transplant procedure are in the results section. 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 DUPLEX FOR DVT, LEG, Routine 02/03/2022 9:42 S/P allogeneic smooth ne Results for this UNILAT AM EDT marrow transplant procedure are in the results section. TYPE AND SCREEN VALIDITY STAT 02/03/2022 7:50 Results for this AM EDT procedure are i n the results section. ABORH RECHECK STATUS STAT 02/03/2022 7:50 Resu lts for this AM EDT procedure are i n the results section. ANTIBODY SCREEN MANUAL STAT 02/03/2022 7:50 Re sults for this AM EDT procedure are i n the results section. ABORH TYPE MANUAL STAT 02/03/2022 7:50 Results for this AM EDT procedure are i n the results section. DIFFERENTIAL, AUTOMATED STAT 02/03/2022 7:50 Hypomagn esemia Results for this AM EDT STACIE (acute kidney procedure are in injury) the results H/O Clostridium section. 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 HC PCH EBV QUANT PCR-SIMMONS Routine 02/03/2022 7:50 S/P allogene ic bone Results for this AM EDT marrow transplant procedure are in the results section. HC IGG, SERUM Routine 02/03/2022 7:50 S/P allogeneic bone Resu lts for this AM EDT marrow transplant procedure are in the results section. 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 TYPE AND SCREEN VALIDITY STAT 01/27/2022 7:35 Results for this AM EDT procedure are i n the results section. ABORH RECHECK STATUS STAT 01/27/2022 7:35 Resu lts for this AM EDT procedure are i n the results section. ANTIBODY SCREEN STAT 01/27/2022 7:35 Anemia in Results f or this AM EDT neoplastic disease procedure are in the results section. ABO/RH TYPING STAT 01/27/2022 7:35 Anemia in Results for this AM EDT neoplastic disease procedure are in the results section. DIFFERENTIAL, AUTOMATED STAT 01/27/2022 7:35 Hypomagn esemia Results for this AM EDT STACIE (acute kidney procedure are in injury) the results H/O Clostridium section. 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 HC CMV QUANT Routine 01/27/2022 7:35 S/P allogeneic bone Resul ts for this AM EDT marrow transplant procedure are in the results section. TYPE AND SCREEN VALIDITY STAT 01/20/2022 11:45 Results for this AM EDT procedure are i n the results section. ABORH RECHECK STATUS STAT 01/20/2022 11:45 Res ults for this AM EDT procedure are i n the results section. ANTIBODY SCREEN MANUAL STAT 01/20/2022 11:45 R esults for this AM EDT procedure are i n the results section. ABORH TYPE MANUAL STAT 01/20/2022 11:45 Result s for this AM EDT procedure are i n the results section. DIFFERENTIAL, AUTOMATED STAT 01/20/2022 11:45 Hypomag nesemia Results for this AM EDT STACIE (acute kidney procedure are in injury) the results H/O Clostridium section. 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 HC IGG, SERUM Routine 01/20/2022 11:45 S/P allogeneic bone Res ults for this AM EDT marrow transplant procedure are in the results section. 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 ABORH RECHECK STATUS STAT 01/17/2022 8:50 Resu lts for this AM EDT procedure are i n the results section. ANTIBODY SCREEN MANUAL STAT 01/17/2022 8:50 Re sults for this AM EDT procedure are i n the results section. ABORH TYPE MANUAL STAT 01/17/2022 8:50 Results for this AM EDT procedure are i n the results section. DIFFERENTIAL, AUTOMATED STAT 01/17/2022 8:50 Hypomagn esemia Results for this AM EDT STACIE (acute kidney procedure are in injury) the results H/O Clostridium section. 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 HC PCH EBV QUANT PCR-ATWATER Routine 01/17/2022 8:50 S/P allogene ic bone Results for this AM EDT marrow transplant procedure are in the results section. HC IGG, SERUM Routine 01/17/2022 8:50 S/P allogeneic bone Resu lts for this AM EDT marrow transplant procedure are in the results section. HC FK-506 (TACROLIMUS) Routine 01/17/2022 8:50 S/P allogeneic bone Results for this AM EDT marrow transplant procedure are in the results section. 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 HEMOGRAM Routine 01/14/2022 3:20 Results for this AM EDT procedure are i n the results section. HC PHOSPHORUS, SERUM Routine 01/14/2022 3:20 Resu lts for this AM EDT procedure are i n the results section. HC MAGNESIUM, SERUM Routine 01/14/2022 3:20 Resul ts for this AM EDT procedure are i n the results section. BASIC METABOLIC PANEL Routine 01/14/2022 3:20 Res ults for this (NON-FASTING) AM EDT procedure are in the results section. HC CBC,PLT & AUTO DIFF Routine 01/14/2022 3:20 AM EDT HC FK-506 (TACROLIMUS) Routine 01/13/2022 9:15 Re sults for this AM EDT procedure are i n the results section. SCAN, PERIPHERAL BLOOD Routine 01/13/2022 4:30 Re sults for this AM EDT procedure are i n the results section. DIFFERENTIAL, AUTOMATED Routine 01/13/2022 4:30 R esults for this AM EDT procedure are i n the results section. HEMOGRAM Routine 01/13/2022 4:30 Results for this AM EDT procedure are i n the results section. HC PHOSPHORUS, SERUM Routine 01/13/2022 4:30 Resu lts for this AM EDT procedure are i n the results section. HC MAGNESIUM, SERUM Routine 01/13/2022 4:30 Resul ts for this AM EDT procedure are i n the results section. BASIC METABOLIC PANEL Routine 01/13/2022 4:30 Res ults for this (NON-FASTING) AM EDT procedure are in the results section. HC CBC,PLT & AUTO DIFF Routine 01/13/2022 4:30 AM EDT DIFFERENTIAL, AUTOMATED Routine 01/12/2022 4:50 R esults for this AM EDT procedure are i n the results section. HEMOGRAM Routine 01/12/2022 4:50 Results for this AM EDT procedure are i n the results section. HC PHOSPHORUS, SERUM Routine 01/12/2022 4:50 Resu lts for this AM EDT procedure are i n the results section. HC MAGNESIUM, SERUM Routine 01/12/2022 4:50 Resul ts for this AM EDT procedure are i n the results section. BASIC METABOLIC PANEL Routine 01/12/2022 4:50 Res ults for this (NON-FASTING) AM EDT procedure are in the results section. HC CBC,PLT & AUTO DIFF Routine 01/12/2022 4:50 AM EDT EKG 12-LEAD Routine 01/11/2022 8:48 Paroxysmal atrial Results for this AM EDT fibrillation procedure are i n the results section. SCAN, PERIPHERAL BLOOD Routine 01/11/2022 3:45 Re sults for this AM EDT procedure are i n the results section. DIFFERENTIAL, AUTOMATED Routine 01/11/2022 3:45 R esults for this AM EDT procedure are i n the results section. HEMOGRAM Routine 01/11/2022 3:45 Results for this AM EDT procedure are i n the results section. HC PHOSPHORUS, SERUM Routine 01/11/2022 3:45 Resu lts for this AM EDT procedure are i n the results section. HC MAGNESIUM, SERUM Routine 01/11/2022 3:45 Resul ts for this AM EDT procedure are i n the results section. BASIC METABOLIC PANEL Routine 01/11/2022 3:45 Res ults for this (NON-FASTING) AM EDT procedure are in the results section. HC CBC,PLT & AUTO DIFF Routine 01/11/2022 3:45 AM EDT HC PHOSPHORUS, SERUM Routine 01/10/2022 4:13 Resu lts for this PM EDT procedure are i n the results section. HC MAGNESIUM, SERUM Routine 01/10/2022 4:13 Resul ts for this PM EDT procedure are i n the results section. BASIC METABOLIC PANEL Routine 01/10/2022 4:13 Res ults for this (NON-FASTING) PM EDT procedure are in the results section. EKG 12-LEAD Routine 01/10/2022 10:32 Paroxysmal atrial Result s for this AM EDT fibrillation procedure are i n the results section. DIFFERENTIAL, AUTOMATED Routine 01/10/2022 1:00 R esults for this AM EDT procedure are i n the results section. HEMOGRAM Routine 01/10/2022 1:00 Results for this AM EDT procedure are i n the results section. HC PHOSPHORUS, SERUM Routine 01/10/2022 1:00 Resu lts for this AM EDT procedure are i n the results section. HC MAGNESIUM, SERUM Routine 01/10/2022 1:00 Resul ts for this AM EDT procedure are i n the results section. BASIC METABOLIC PANEL Routine 01/10/2022 1:00 Res ults for this (NON-FASTING) AM EDT procedure are in the results section. HC CBC,PLT & AUTO DIFF Routine 01/10/2022 1:00 AM EDT COVID-19 PCR Routine 01/09/2022 1:00 Results for this PM EDT procedure are i n the results section. HC FK-506 (TACROLIMUS) Routine 01/09/2022 9:00 Re sults for this AM EDT procedure are i n the results section. DIFFERENTIAL, AUTOMATED Routine 01/09/2022 12:25 Results for this AM EDT procedure are i n the results section. HEMOGRAM Routine 01/09/2022 12:25 Results for this AM EDT procedure are i n the results section. HC PHOSPHORUS, SERUM Routine 01/09/2022 12:25 Res ults for this AM EDT procedure are i n the results section. HC MAGNESIUM, SERUM Routine 01/09/2022 12:25 Resu lts for this AM EDT procedure are i n the results section. BASIC METABOLIC PANEL Routine 01/09/2022 12:25 Re sults for this (NON-FASTING) AM EDT procedure are in the results section. HC CBC,PLT & AUTO DIFF Routine 01/09/2022 12:25 AM EDT HC VANCOMYCIN Timed 01/08/2022 6:25 Results for this PM EDT procedure are i n the results section. XR FLUORO GUIDED LUMBAR Routine 01/08/2022 1:04 R esults for this PUNCTURE PM EDT procedure are i n the results section. FLUID REVIEW REPORT Routine 01/08/2022 11:18 Resu lts for this AM EDT procedure are i n the results section. CSF CELL COUNT 2ND COUNT Routine 01/08/2022 11:18 Results for this AM EDT procedure are i n the results section. CSF CELL COUNT Routine 01/08/2022 11:18 Results f or this AM EDT procedure are i n the results section. CSF DESC 4 Routine 01/08/2022 11:18 Results for this AM EDT procedure are i n the results section. CSF DESC 3 Routine 01/08/2022 11:18 Results for this AM EDT procedure are i n the results section. CSF DESC 2 Routine 01/08/2022 11:18 Results for this AM EDT procedure are i n the results section. CSF DESC 1 Routine 01/08/2022 11:18 Results for this AM EDT procedure are i n the results section. BODY FLUID HOLD Routine 01/08/2022 11:18 Results for this AM EDT procedure are i n the results section. LEUKEMIA LYMPHOMA SCREEN Routine 01/08/2022 11:18 Results for this (FORMERLY MALIGNANT CELL AM EDT pro cedure are in SCREEN) the results section. HC CSF CELL CT W/ Routine 01/08/2022 11:18 DIFFERENTIAL AM EDT HC GLUCOSE, CSF Routine 01/08/2022 11:18 Results for this AM EDT procedure are i n the results section. HC PROTEIN, CSF Routine 01/08/2022 11:18 Results for this AM EDT procedure are i n the results section. HC HERPES SIMPLEX VIRUS Routine 01/08/2022 11:18 Results for this 08/18 BY PCR AM EDT procedure are i n the results section. HC PCH VARICELLA ZOSTER Routine 01/08/2022 11:18 Results for this PCR AM EDT procedure are i n the results section. HC PCH MO-ENTEROVIRUS Routine 01/08/2022 11:18 Re sults for this AMPLIFIED PROBE AM EDT procedure ar e in the results section. HC CRYPTOCOCCAL ANTIGEN Routine 01/08/2022 11:18 Results for this AM EDT procedure are i n the results section. HC MECHANISM INSPECTOR CULTURE Routine 01/08/2022 11:18 Results f or this AM EDT procedure are i n the results section. HC PROTHROMBIN TIME STAT 01/08/2022 9:15 Resul ts for this AM EDT procedure are i n the results section. ZEEG 24 HOUR MONITORING, Routine 01/08/2022 5:00 Results for this PORTABLE AM EDT procedure are i n the results section. SCAN, PERIPHERAL BLOOD Routine 01/08/2022 1:35 Re sults for this AM EDT procedure are i n the results section. DIFFERENTIAL, AUTOMATED Routine 01/08/2022 1:35 R esults for this AM EDT procedure are i n the results section. HEMOGRAM Routine 01/08/2022 1:35 Results for this AM EDT procedure are i n the results section. HC PHOSPHORUS, SERUM Routine 01/08/2022 1:35 Resu lts for this AM EDT procedure are i n the results section. HC MAGNESIUM, SERUM Routine 01/08/2022 1:35 Resul ts for this AM EDT procedure are i n the results section. BASIC METABOLIC PANEL Routine 01/08/2022 1:35 Res ults for this (NON-FASTING) AM EDT procedure are in the results section. HC CBC,PLT & AUTO DIFF Routine 01/08/2022 1:35 AM EDT MRI BRAIN WWO CONTRAST Routine 01/07/2022 9:34 Re sults for this (GENERIC) PM EDT procedure are i n the results section. MAGNESIUM Routine 01/07/2022 1:40 Results for this PM EDT procedure are i n the results section. BASIC METABOLIC PANEL Routine 01/07/2022 1:40 Res ults for this (NON-FASTING) PM EDT procedure are in the results section. HC THYROID STIMULATING Routine 01/07/2022 1:40 Re sults for this HORMONE, SERUM PM EDT procedure are in the results section. DIFFERENTIAL, AUTOMATED Routine 01/07/2022 5:24 R esults for this AM EDT procedure are i n the results section. HEMOGRAM Routine 01/07/2022 5:24 Results for this AM EDT procedure are i n the results section. HC PHOSPHORUS, SERUM Routine 01/07/2022 5:24 Resu lts for this AM EDT procedure are i n the results section. HC MAGNESIUM, SERUM Routine 01/07/2022 5:24 Resul ts for this AM EDT procedure are i n the results section. BASIC METABOLIC PANEL Routine 01/07/2022 5:24 Res ults for this (NON-FASTING) AM EDT procedure are in the results section. HC CBC,PLT & AUTO DIFF Routine 01/07/2022 5:24 AM EDT HC BLOOD CULTURE- STAT 01/07/2022 4:31 Results for this AM EDT procedure are i n the results section. CT HEAD WO CONTRAST Routine 01/07/2022 4:01 Resul ts for this (GENERIC) AM EDT procedure are i n the results section. URINALYSIS MICROSCOPIC Routine 01/07/2022 12:13 R esults for this EXAM AM EDT procedure are i n the results section. URINALYSIS WITH REFLEX Routine 01/07/2022 12:13 R esults for this CULTURE AM EDT procedure are i n the results section. HC BLOOD CULTURE- STAT 01/06/2022 11:35 Result s for this PM EDT procedure are i n the results section. DIFFERENTIAL, AUTOMATED Routine 01/06/2022 11:20 Results for this PM EDT procedure are i n the results section. HEMOGRAM Routine 01/06/2022 11:20 Results for this PM EDT procedure are i n the results section. HC FK-506 (TACROLIMUS) Routine 01/06/2022 11:20 R esults for this PM EDT procedure are i n the results section. HEPATIC FUNCTION PANEL Routine 01/06/2022 11:20 R esults for this PM EDT procedure are i n the results section. HC PHOSPHORUS, SERUM Routine 01/06/2022 11:20 Res ults for this PM EDT procedure are i n the results section. HC MAGNESIUM, SERUM Routine 01/06/2022 11:20 Resu lts for this PM EDT procedure are i n the results section. BASIC METABOLIC PANEL Routine 01/06/2022 11:20 Re sults for this (NON-FASTING) PM EDT procedure are in the results section. HC CBC,PLT & AUTO DIFF Routine 01/06/2022 11:20 PM EDT RAPID COVID-19 PCR Routine 01/06/2022 11:10 Resul ts for this ([facility]) PM EDT procedure are in the results section. HC MRSA DETECTION BY PCR Routine 01/06/2022 11:10 Results for this PM EDT procedure are i n the results section. FILM LIBRARY STORAGE ONLY Routine 01/04/2022 12:00 Results for this DX CHEST AM EDT procedure are i n the results section. FILM LIBRARY STORAGE ONLY Routine 12/29/2021 12:[address] HEAD AM EDT procedure are i n the results section. FILM LIBRARY STORAGE ONLY Routine 12/29/2021 12:[address] CHEST ABDOMEN PELVIS AM EDT proc edure are in the results section. BONE MARROW FINAL REPORT Routine 12/23/2021 3:40 Results for this PM EDT procedure are i n the results section. [facility] TEST-[facility] Routine 12/23/2021 3:40 Resul ts for this PM EDT procedure are i n the results section. IMMUNOPHENOTYPING FLOW Routine 12/23/2021 3:40 Re sults for this CYTOMETRY PM EDT procedure are i n the results section. IRON STAIN, BONE MARROW Routine 12/23/2021 3:40 R esults for this PM EDT procedure are i n the results section. BONE MARROW PANEL Routine 12/23/2021 3:40 ([facility]D) PM EDT ([facility] MSURG) BONE MARROW Yes 12/23/2021 3:21 AML BIOPSY AND ASPIRATION; PM EDT DIAGNOSTIC ([facility]) BONE MARROW Routine 12/23/2021 2:54 BIOPSY AND ASPIRATION; PM EDT DIAGNOSTIC DIFFERENTIAL, AUTOMATED STAT 12/23/2021 10:10 Hypomag nesemia Results for this AM EDT STACIE (acute kidney procedure are in injury) the results H/O Clostridium section. 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 HC PCH EBV QUANT PCR-SIMMONS Routine 12/23/2021 10:10 S/P allogen eic bone Results for this AM EDT marrow transplant procedure are in the results section. HC IGG, SERUM Routine 12/23/2021 10:10 S/P allogeneic bone Res ults for this AM EDT marrow transplant procedure are in the results section. HC FK-506 (TACROLIMUS) Routine 12/23/2021 10:10 S/P allogeneic bone Results for this AM EDT marrow transplant procedure are in the results section. 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 HC IGG, SERUM Routine 12/20/2021 9:35 S/P allogeneic bone Resu lts for this AM EDT marrow transplant procedure are in the results section. 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 DIFFERENTIAL, AUTOMATED Routine 12/17/2021 4:30 R esults for this AM EDT procedure are i n the results section. HEMOGRAM Routine 12/17/2021 4:30 Results for this AM EDT procedure are i n the results section. .CHIMERISM BLOOD Routine 12/17/2021 4:30 Results for this AM EDT procedure are i n the results section. HEPATIC FUNCTION PANEL Routine 12/17/2021 4:30 Re sults for this AM EDT procedure are i n the results section. HC PHOSPHORUS, SERUM Routine 12/17/2021 4:30 Resu lts for this AM EDT procedure are i n the results section. HC CBC,PLT & AUTO DIFF Routine 12/17/2021 4:30 AM EDT HC CHIMERISM W/COMP TO Routine 12/17/2021 4:30 BASELINE W/O CELL AM EDT SELECTION HC MAGNESIUM, SERUM Routine 12/17/2021 4:30 Resul ts for this AM EDT procedure are i n the results section. BASIC METABOLIC PANEL Routine 12/17/2021 4:30 Res ults for this (NON-FASTING) AM EDT procedure are in the results section. RAPID COVID-19 PCR Routine 12/16/2021 4:10 Result s for this ([facility]) PM EDT procedure are in the results section. HC FK-506 (TACROLIMUS) Routine 12/16/2021 8:30 Re sults for this AM EDT procedure are i n the results section. DIFFERENTIAL, AUTOMATED Routine 12/16/2021 2:40 R esults for this AM EDT procedure are i n the results section. HEMOGRAM Routine 12/16/2021 2:40 Results for this AM EDT procedure are i n the results section. HC MAGNESIUM, SERUM Routine 12/16/2021 2:40 Resul ts for this AM EDT procedure are i n the results section. BASIC METABOLIC PANEL Routine 12/16/2021 2:40 Res ults for this (NON-FASTING) AM EDT procedure are in the results section. HC PHOSPHORUS, SERUM Routine 12/16/2021 2:40 Resu lts for this AM EDT procedure are i n the results section. HEPATIC FUNCTION PANEL Routine 12/16/2021 2:40 Re sults for this AM EDT procedure are i n the results section. HC CBC,PLT & AUTO DIFF Routine 12/16/2021 2:40 AM EDT BASIC METABOLIC PANEL Routine 12/15/2021 4:40 Res ults for this (NON-FASTING) PM EDT procedure are in the results section. HC MAGNESIUM, SERUM Routine 12/15/2021 4:40 Resul ts for this PM EDT procedure are i n the results section. SCAN DOC: TELEMETRY 12/15/2021 4:51 STRIPS AM EDT TYPE AND SCREEN VALIDITY Routine 12/15/2021 12:44 Results for this AM EDT procedure are i n the results section. ABORH RECHECK STATUS Routine 12/15/2021 12:44 Res ults for this AM EDT procedure are i n the results section. SCAN, PERIPHERAL BLOOD Routine 12/15/2021 12:44 R esults for this AM EDT procedure are i n the results section. ANTIBODY SCREEN MANUAL Routine 12/15/2021 12:44 R esults for this AM EDT procedure are i n the results section. ABORH TYPE MANUAL Routine 12/15/2021 12:44 Result s for this AM EDT procedure are i n the results section. DIFFERENTIAL, AUTOMATED Routine 12/15/2021 12:44 Results for this AM EDT procedure are i n the results section. HEMOGRAM Routine 12/15/2021 12:44 Results for this AM EDT procedure are i n the results section. HC PHOSPHORUS, SERUM Routine 12/15/2021 12:44 Res ults for this AM EDT procedure are i n the results section. HEPATIC FUNCTION PANEL Routine 12/15/2021 12:44 R esults for this AM EDT procedure are i n the results section. HC CBC,PLT & AUTO DIFF Routine 12/15/2021 12:44 AM EDT HC MAGNESIUM, SERUM Routine 12/15/2021 12:44 Resu lts for this AM EDT procedure are i n the results section. BASIC METABOLIC PANEL Routine 12/15/2021 12:44 Re sults for this (NON-FASTING) AM EDT procedure are in the results section. SCAN DOC: TELEMETRY 12/14/2021 3:45 STRIPS PM EDT HC MAGNESIUM, SERUM Routine 12/14/2021 1:45 Resul ts for this PM EDT procedure are i n the results section. HC PHOSPHORUS, SERUM Routine 12/14/2021 1:45 Resu lts for this PM EDT procedure are i n the results section. BASIC METABOLIC PANEL Routine 12/14/2021 1:45 Res ults for this (NON-FASTING) PM EDT procedure are in the results section. SCAN DOC: TELEMETRY 12/14/2021 5:36 STRIPS AM EDT DIFFERENTIAL, AUTOMATED Routine 12/14/2021 4:02 R esults for this AM EDT procedure are i n the results section. HEMOGRAM Routine 12/14/2021 4:02 Results for this AM EDT procedure are i n the results section. HC MAGNESIUM, SERUM Routine 12/14/2021 4:02 Resul ts for this AM EDT procedure are i n the results section. BASIC METABOLIC PANEL Routine 12/14/2021 4:02 Res ults for this (NON-FASTING) AM EDT procedure are in the results section. HC PHOSPHORUS, SERUM Routine 12/14/2021 4:02 Resu lts for this AM EDT procedure are i n the results section. HEPATIC FUNCTION PANEL Routine 12/14/2021 4:02 Re sults for this AM EDT procedure are i n the results section. HC CBC,PLT & AUTO DIFF Routine 12/14/2021 4:02 AM EDT URINALYSIS WITH REFLEX Routine 12/13/2021 8:50 Re sults for this CULTURE PM EDT procedure are i n the results section. XR CHEST ONE VIEW Routine 12/13/2021 8:13 Results for this PM EDT procedure are i n the results section. HC VENIPUNCTURE STAT 12/13/2021 8:11 Results f or this PM EDT procedure are i n the results section. HC BLOOD CULTURE- STAT 12/13/2021 8:11 Results for this PM EDT procedure are i n the results section. SCAN DOC: TELEMETRY 12/13/2021 6:52 STRIPS PM EDT HC CMV QUANT Routine 12/13/2021 6:00 Results for this PM EDT procedure are i n the results section. HC PCH EBV QUANT PCR-SIMMONS Routine 12/13/2021 6:00 Results for this PM EDT procedure are i n the results section. HC MAGNESIUM, SERUM Routine 12/13/2021 6:00 Resul ts for this PM EDT procedure are i n the results section. BASIC METABOLIC PANEL Routine 12/13/2021 6:00 Res ults for this (NON-FASTING) PM EDT procedure are in the results section. HC LACTIC DEHYDROGENASE Routine 12/13/2021 6:00 R esults for this PM EDT procedure are i n the results section. HC RESPIRATORY VIRUS Routine 12/13/2021 6:00 Resu lts for this PANEL BY PCR PM EDT procedure are i n the results section. EKG 12-LEAD Routine 12/13/2021 5:35 Acute myeloid Results for this PM EDT leukemia in procedure are i n remission the results section. DIFFERENTIAL, AUTOMATED STAT 12/13/2021 9:20 Hypomagn esemia Results for this AM EDT STACIE (acute kidney procedure are in injury) the results H/O Clostridium section. 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 COMPREHENSIVE METABOLIC Routine 12/12/2021 1:10 R esults for this PANEL (NON-FASTING) PM EDT procedur e are in the results section. LAB SCAN 12/12/2021 12:00 Results for this AM EDT procedure are i n the results section. DIFFERENTIAL, AUTOMATED STAT 12/09/2021 10:50 Hypomag nesemia Results for this AM EDT STACIE (acute kidney procedure are in injury) the results H/O Clostridium section. 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 HC PCH EBV QUANT PCR-SIMMONS Routine 12/09/2021 10:50 S/P allogen eic bone Results for this AM EDT marrow transplant procedure are in the results section. HC MAGNESIUM, SERUM Routine 12/09/2021 10:50 Hypomagnese ajay Results for this AM EDT STACIE (acute kidney procedure are in injury) the results H/O Clostridium section. 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 HC IGG, SERUM Routine 12/09/2021 10:50 S/P allogeneic bone Res ults for this AM EDT marrow transplant procedure are in the results section. COMPREHENSIVE METABOLIC Routine 12/05/2021 1:00 R esults for this PANEL (NON-FASTING) PM EDT procedur e are in the results section. DIFFERENTIAL, AUTOMATED STAT 12/02/2021 9:45 Hypomagn esemia Results for this AM EDT STACIE (acute kidney procedure are in injury) the results H/O Clostridium section. 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 HC CMV QUANT Routine 12/02/2021 9:45 S/P allogeneic bone Resul ts for this AM EDT marrow transplant procedure are in the results section. BASIC METABOLIC PANEL Routine 11/29/2021 Result s for this (NON-FASTING) procedure are in the results section. CBC (WITH DIFF) Routine 11/29/2021 Results for this procedure are i n the results section. MAGNESIUM Routine 11/29/2021 Results for thi s procedure are i n the results section. LAB SCAN 11/29/2021 12:00 Results for this AM EDT procedure are i n the results section. DIFFERENTIAL, AUTOMATED STAT 11/25/2021 10:36 S/P allogenei c bone Results for this AM EDT marrow transplant procedure are in the results section. HEMOGRAM STAT 11/25/2021 10:36 S/P allogeneic bone Resu lts for this AM EDT marrow transplant procedure are in the results section. HC LACTIC DEHYDROGENASE STAT 11/25/2021 10:36 S/P allogenei c bone Results for this AM EDT marrow transplan t procedure are in Acute myeloid the results leukemia in section. remission HC FK-506 (TACROLIMUS) Routine 11/25/2021 10:36 S/P allogeneic bone Results for this AM EDT marrow transplant procedure are in the results section. HC IGG, SERUM Routine 11/25/2021 10:36 S/P allogeneic bone Res ults for this AM EDT marrow transplant procedure are in the results section. HC CMV QUANT Routine 11/25/2021 10:36 S/P allogeneic bone Resu lts for this AM EDT marrow transplant procedure are in the results section. HC PHOSPHORUS, SERUM STAT 11/25/2021 10:36 S/P allogeneic b one Results for this AM EDT marrow transplant procedure are in the results section. HC MAGNESIUM, SERUM STAT 11/25/2021 10:36 S/P allogeneic smooth ne Results for this AM EDT marrow transplant procedure are in the results section. COMPREHENSIVE METABOLIC STAT 11/25/2021 10:36 S/P allogenei c bone Results for this PANEL (NON-FASTING) AM EDT marrow transplant pro cedure are in the results section. HC CBC,PLT & AUTO DIFF STAT 11/25/2021 10:36 S/P allogeneic bone AM EDT marrow transplant TYPE AND SCREEN VALIDITY Routine 11/25/2021 10:25 Results for this AM EDT procedure are i n the results section. ABORH RECHECK STATUS Routine 11/25/2021 10:25 Res ults for this AM EDT procedure are i n the results section. ANTIBODY SCREEN MANUAL Routine 11/25/2021 10:25 R esults for this AM EDT procedure are i n the results section. ABORH TYPE MANUAL Routine 11/25/2021 10:25 Result s for this AM EDT procedure are i n the results section. SCAN, PERIPHERAL BLOOD STAT 11/22/2021 12:15 R esults for this PM EDT procedure are i n the results section. DIFFERENTIAL, AUTOMATED STAT 11/22/2021 12:15 S/P allogenei c bone Results for this PM EDT marrow transplant procedure are in the results section. HEMOGRAM STAT 11/22/2021 12:15 S/P allogeneic bone Resu lts for this PM EDT marrow transplant procedure are in the results section. HC CBC,PLT & AUTO DIFF STAT 11/22/2021 12:15 S/P allogeneic bone PM EDT marrow transplant TYPE AND SCREEN VALIDITY STAT 11/22/2021 10:29 Results for this AM EDT procedure are i n the results section. ABORH RECHECK STATUS STAT 11/22/2021 10:29 Res ults for this AM EDT procedure are i n the results section. CHIMERISM BLOOD REPORT Routine 11/22/2021 10:29 S/P allogeneic bone Results for this AM EDT marrow transplan t procedure are in Acute myeloid the results leukemia in section. remission ANTIBODY SCREEN MANUAL STAT 11/22/2021 10:29 R esults for this AM EDT procedure are i n the results section. ABORH TYPE MANUAL STAT 11/22/2021 10:29 Result s for this AM EDT procedure are i n the results section. .CHIMERISM BLOOD Routine 11/22/2021 10:29 S/P allogeneic bone Results for this AM EDT marrow transplan t procedure are in Acute myeloid the results leukemia in section. remission HC FK-506 (TACROLIMUS) Routine 11/22/2021 10:29 S/P allogeneic bone Results for this AM EDT marrow transplant procedure are in the results section. HC IGG, SERUM Routine 11/22/2021 10:29 S/P allogeneic bone Res ults for this AM EDT marrow transplant procedure are in the results section. EBV PCR QUANTITATIVE Routine 11/22/2021 10:29 S/P allogeneic b one Results for this AM EDT marrow transplant procedure are in the results section. CMV PCR, QUANTITATIVE Routine 11/22/2021 10:29 S/P allogeneic bone Results for this AM EDT marrow transplant procedure are in the results section. HC PHOSPHORUS, SERUM STAT 11/22/2021 10:29 S/P allogeneic b one Results for this AM EDT marrow transplant procedure are in the results section. HC MAGNESIUM, SERUM STAT 11/22/2021 10:29 S/P allogeneic smooth ne Results for this AM EDT marrow transplant procedure are in the results section. COMPREHENSIVE METABOLIC STAT 11/22/2021 10:29 S/P allogenei c bone Results for this PANEL (NON-FASTING) AM EDT marrow transplant pro cedure are in the results section. HC CHIMERISM W/COMP TO Routine 11/22/2021 10:29 S/P allogeneic bone BASELINE W/O CELL AM EDT marrow transpl ant SELECTION Acute myeloid leukemia in remission HC LACTIC DEHYDROGENASE STAT 11/22/2021 10:29 S/P allogenei c bone Results for this AM EDT marrow transplan t procedure are in Acute myeloid the results leukemia in section. remission TRANSFUSE RED BLOOD CELLS Routine 11/18/2021 10:12 AM EDT PREPARE RBC Routine 11/18/2021 9:00 Results for this AM EDT procedure are i n the results section. HC FK-506 (TACROLIMUS) Routine 11/18/2021 8:05 Acute myeloid R esults for this AM EDT leukemia in procedure are i n remission the results section. DIFFERENTIAL, MANUAL Routine 11/18/2021 4:00 Resu lts for this AM EDT procedure are i n the results section. HEMOGRAM Routine 11/18/2021 4:00 Acute myeloid Results for this AM EDT leukemia in procedure are i n remission the results section. HEPATIC FUNCTION PANEL Routine 11/18/2021 4:00 Acute myeloid R esults for this AM EDT leukemia in procedure are i n remission the results section. HC PHOSPHORUS, SERUM Routine 11/18/2021 4:00 Acute myeloid Res ults for this AM EDT leukemia in procedure are i n remission the results section. HC MAGNESIUM, SERUM Routine 11/18/2021 4:00 Acute myeloid Resu lts for this AM EDT leukemia in procedure are i n remission the results section. BASIC METABOLIC PANEL Routine 11/18/2021 4:00 Acute myeloid Re sults for this (NON-FASTING) AM EDT leukemia in procedure are in remission the results section. HC CBC,PLT & AUTO DIFF Routine 11/18/2021 4:00 Acute myeloid AM EDT leukemia in remission SCAN DOC: TELEMETRY 11/17/2021 9:33 STRIPS PM EDT SCAN DOC: TELEMETRY 11/17/2021 6:22 STRIPS PM EDT HC PHOSPHORUS, SERUM Routine 11/17/2021 3:47 Resu lts for this PM EDT procedure are i n the results section. BASIC METABOLIC PANEL Routine 11/17/2021 3:47 Res ults for this (NON-FASTING) PM EDT procedure are in the results section. HC UREA NITROGEN, URINE Routine 11/17/2021 8:57 R esults for this 24 HR AM EDT procedure are i n the results section. HC CREATININE - NON BLOOD Routine 11/17/2021 8:57 Results for this AM EDT procedure are i n the results section. HC SODIUM, URINE Routine 11/17/2021 8:57 Results for this AM EDT procedure are i n the results section. SCAN DOC: TELEMETRY 11/17/2021 5:51 STRIPS AM EDT DIFFERENTIAL, MANUAL Routine 11/17/2021 4:00 Resu lts for this AM EDT procedure are i n the results section. 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 HC PHOSPHORUS, SERUM Routine 11/17/2021 4:00 Acute myeloid Res ults for this AM EDT leukemia in procedure are i n remission the results section. HC MAGNESIUM, SERUM Routine 11/17/2021 4:00 Acute myeloid Resu lts for this AM EDT leukemia in procedure are i n remission the results section. 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 HC CBC,PLT & AUTO DIFF Routine 11/17/2021 4:00 Acute myeloid AM EDT leukemia in remission SCAN DOC: TELEMETRY 11/16/2021 5:50 STRIPS PM EDT SCAN DOC: TELEMETRY 11/16/2021 5:30 STRIPS AM EDT DIFFERENTIAL, MANUAL Routine 11/16/2021 3:20 Resu lts for this AM EDT procedure are i n the results section. 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 SCAN DOC: TELEMETRY 11/15/2021 5:51 STRIPS PM EDT TYPE AND SCREEN VALIDITY Routine 11/15/2021 3:45 Results for this AM EDT procedure are i n the results section. ABORH RECHECK STATUS Routine 11/15/2021 3:45 Resu lts for this AM EDT procedure are i n the results section. DIFFERENTIAL, MANUAL Routine 11/15/2021 3:45 Resu lts for this AM EDT procedure are i n the results section. ANTIBODY SCREEN MANUAL Routine 11/15/2021 3:45 Re sults for this AM EDT procedure are i n the results section. ABORH TYPE MANUAL Routine 11/15/2021 3:45 Results for this AM EDT procedure are i n the results section. 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 HC PHOSPHORUS, SERUM Routine 11/15/2021 3:45 Acute myeloid Res ults for this AM EDT leukemia in procedure are i n remission the results section. HC MAGNESIUM, SERUM Routine 11/15/2021 3:45 Acute myeloid Resu lts for this AM EDT leukemia in procedure are i n remission the results section. BASIC METABOLIC PANEL Routine 11/15/2021 3:45 Acute myeloid Re sults for this (NON-FASTING) AM EDT leukemia in procedure are in remission the results section. HC CBC,PLT & AUTO DIFF Routine 11/15/2021 3:45 Acute myeloid AM EDT leukemia in remission SCAN DOC: TELEMETRY 11/15/2021 3:32 STRIPS AM EDT from Last 3 Months Results Type and Screen Validity (02/10/2022 8:45 AM EDT)Only the most recent of9 resultswithin the time period is included. [employer] Method Time Signature T&S only valid [facility] LABORATORY Comment: This Type and Screen result is only valid at the [facility] Specimen Anatomical Collection Method Collection Time Receive d Time (Source) Location / / Volume Laterality Blood 02/10/2022 8:45 AM 8:52 EDT AM EDT Resulting Agency Comment Spec In Lab Dilshad Osullivan MD BLOOD BANK ORDERABLES Performing Organization Address City/State/[place] [address] ABORH Recheck Status (02/10/2022 8:45 AM EDT)Only the most recent of9 results within the time period is included. [facility] Not[employer] Method Time Signature ABORH Type Completed [facility] LABORATORY Specimen Anatomical Collection Method Collection Time Receive d Time (Source) Location / / Volume Laterality Blood 02/10/2022 8:45 AM 2 8:52 EDT AM EDT Resulting Agency Comment Spec In Lab Dilshad Osullivan MD BLOOD BANK ORDERABLES Performing Organization Address City/State/[place] [address] (ABNORMAL) Hemogram (02/10/2022 8:45 AM EDT)Only the most recent of29 results within the time period is included. [facility] gist Method Time Signature WBC 5.4 4.0 - 9.5 [facility] x10(3)/[facility] LABORATORY RBC 2.06 (L) 4.58 [facility].54 [facility] x10(6)/[facility] LABORATORY Hemoglobin 7.4 (L) 13.7 - [facility] 16.5 g/dL [facility] Hematocrit 22.1 (L) 40.5 - [facility] 48.5 % [facility] MCV 107.3 (H) 82.9 - [facility] 93.1 [facility] LABORATORY MCH 35.9 (H) 27.5 - [facility] 32.1 pg [facility] MCHC 33.5 32.0 - [facility] 35.7 g/dL [facility] Platelets 64 (L) 145 - 357 [facility] x10(3)/[facility] LABORATORY RDWSD 71.3 (H) 36.0 - [facility] 45.0 [facility] LABORATORY RDWCV 18.3 (H) 11.4 - [facility] 13.8 % [facility] LAB[facility]ATORY MPV 11.1 7.6 - 12.9 [facility] LABORATORY nRBC % Auto 0.6 % [facility] LABORATORY nRBC Abs Auto 0.030 (H) 0.000 - JIA ARASELI 0.000 [facility] x10(3)/[facility] LABORATORY Specimen Anatomical Collection Method Collection Time Receive d Time (Source) Location / / Volume Laterality Blood 02/10/2022 8:45 AM 2 9:03 EDT AM EDT Resulting Agency Comment Spec In Lab Dilshad Osullivan MD HEMATOLOGY ORDERABLES Performing Organization Address City/State/[place] [address] (ABNORMAL) Differential, Automated (02/10/2022 8:45 AM EDT)Only the most recent of25 resultswithin the time period is included. [facility] Method Time Signature Neutrophils % 86.1 % [facility] LABORATORY Neutr Abs (ANC) 4.65 1.70 - [facility] 6.10 [facility] x10(3)/[facility] LABORATORY Lymphocytes % 6.9 % [facility] LABORATORY Lymphocytes Abs 0.4 (L) 0.9 - 3.2 [facility] x10(3)/[facility] LABORATORY Monocytes % 5.9 % [facility] LABORATORY Monocyte Abs 0.3 0.3 - 0.9 [facility] x10(3)/[facility] LABORATORY Eosinophils % 0.0 % [facility] LABORATORY Eosinophils Abs 0.0 0.0 - 0.4 [facility] x10(3)/[facility] LABORATORY Basophils % 0.0 % [facility] LABORATORY Basophils Abs 0.0 0.0 - 0.1 [facility] x10(3)/[facility] LABORATORY Immature Gran % 1.10 % [facility]ORY Comment: Immature granulocytes(IG's)percentage an d absolute count will include metamyelocytes, myelocytes, and promyelo cytes. Blood smears from CBCs yielding IG's will be scanned manually for concor dance. If this scan disagrees with the automated IG or if promyelocytes are not ed, a manual differential will be performed. Zara Gran Abs 0.06 (H) 0.00 - 0.04 x10(3)/[facility] LABORATORY Specimen Anatomical Collection Method Collection Time Receive d Time (Source) Location / / Volume Laterality Blood 02/10/2022 8:45 AM 9:03 EDT AM EDT Resulting Agency Comment Spec In Lab Dilshad Osullivan MD HEMATOLOGY ORDERABLES Performing Organization Address City/State/[place] [address] Tacrolimus level (02/10/2022 8:45 AM EDT)Only the most recent of17 resultswithin the time period is included. P athologist Signature Tacrolimus Lvl 6.6 ng/mL [facility] LAB[facility] Comment: Trough therapeutic range is 3-15 ng/mL, depending upon transplant type, time since transplantation, use of other immu nosuppressive drugs, comorbidities, and test method used. Tacrolimus concentration determined usin g the Celia [employer]ys Tacrolimus electrochemiluminescence competitive imm unoassay. Results from different samples types and methods are not interchangeable. Specimen Anatomical Collection Method Collection Time Receive d Time (Source) Location / / Volume Laterality Blood 02/10/2022 8:45 AM 2 9:03 EDT AM EDT Resulting Agency Comment Spec In Lab Dilshad Osullivan MD CHEMISTRY ORDERABLES Performing Organization Address City/[facility]/[place] [address] CMV PCR, Quantitative (02/10/2022 8:45 AM EDT)Only the most recent of12 results within the time period is included. Patholo gist Method Time Signature CMV Quant Not Detected Not Detected JIA (Numeric) IU/mL [facility]3] LABORATORY Comment: Indication for Study: Monitoring CMV DNA Analysis: The jasmeet CMV test is an in vi tro nucleic acid amplification tests using real-time polymerase chain reactio n (PCR) assay for the quantitative measurement of cytomegalovirus (CMV) DNA in human EDTA plasma. Sample: EDTA plasma Method: jasmeet CMV test used with the 680 0 platform (Celia) Linear Range: 34.5 - 1.0 x 10^7 IU/mL (1 .54 ? 7.00 log IU/mL) Note: The Celia jasmeet CMV assay has been approved by the U.S. Food and Drug Administration for clinical testing. Specimen Anatomical Collection Method Collection Time Receive d Time (Source) Location / / Volume Laterality Blood 02/10/2022 8:45 AM 2 7:02 EDT AM EDT Resulting Agency Comment Spec In Lab Dilshad Osullivan MD IMMUNOLOGY ORDERABLES Performing Organization Address City/[facility]/ZIP Code Phon e Number [address] ABO/Rh Typing (02/10/2022 8:45 AM EDT)Only the most recent of2 resultswithin the time period is included. P athologist Signature ABORh Type O Neg [facility] LABORATORY Specimen Anatomical Collection Method Collection Time Receive d Time (Source) Location / / Volume Laterality Blood 02/10/2022 8:45 AM 2 8:52 EDT AM EDT Resulting Agency Comment Spec In Lab Dilshad Osullivan MD BLOOD BANK ORDERABLES Performing Organization Address [facility] Phon e Number [address] Antibody screen (02/10/2022 8:45 AM EDT)Only the most recent of2 resultswithin the time period is included. Patholo gist Method Time Signature Ab Screen Negative [facility] LABORATORY Expires at 02/13/2022 [facility] [id number] on: [facility] LABORATORY Specimen Anatomical Collection Method Collection Time Receive d Time (Source) Location / / Volume Laterality Blood 02/10/2022 8:45 AM 2 8:52 EDT AM EDT Resulting Agency Comment Spec In Lab Dilshad Osullivan MD BLOOD BANK ORDERABLES Performing Organization Address City/[facility]/[place] [address] (ABNORMAL) Magnesium (02/10/2022 8:45 AM EDT)Only the most recent of35 results within the time period is included. P athologist Signature Magnesium 0.67 (L) 0.69 - 1.07 [facility] mmol/L [facility] LABORATORY Specimen Anatomical Collection Method Collection Time Receive d Time (Source) Location / / Volume Laterality Blood 02/10/2022 8:45 AM 2 9:03 EDT AM EDT Resulting Agency Comment Spec In Lab Dilshad Osullivan MD CHEMISTRY ORDERABLES Performing Organization Address City/[facility]/ZIP Code Phon e Number [place], [place] [id number] [place] [address] (ABNORMAL) IgG (02/10/2022 8:45 AM EDT)Only the most recent of11 resultswithin the time period is included. athologist Signature IgG 618 (L) 700 - 1,600 [facility] mg/dL [facility] LABORATORY Comment: Pediatric Reference Intervals obtained f rom the Caliper Reference Interval project. http://[email or web address].ca/caliperp roject/index.html Specimen Anatomical Collection Method Collection Time Receive d Time (Source) Location / / Volume Laterality Blood 02/10/2022 8:45 AM 9:03 EDT AM EDT Resulting Agency Comment Spec In Lab Dilshad Osullivan MD IMMUNOLOGY ORDERABLES Performing Organization Address [facility]/[place] [address] (ABNORMAL) Comprehensive metabolic panel (non-fasting) (02/10/2022 8:45 AM EDT) Only the most recent of14 resultswithin the time period is included. athologist [facility] Glucose Lvl 93 65 - 199 [facility] mg/dL [facility] LABORATORY Comment: Diabetes: >=200 mg/dL plus symp toms BUN 39 (H) 10 - 20 mg/dL [facility] LABORATORY Creatinine 2.07 (H) 0.80 - 1.50 mg/dL [facility] LABORATORY Sodium 134 (L) 135 - 145 mmol/L [facility] LABORATORY Potassium 5.4 (H) 3.5 - 5.0 mmol/L [facility] LABORATORY Comment: Please note: ??Patients with WBC >100,00 0 may have falsely elevated Potassium levels. ??For accurate Potassium quantif ication in these patients send serum separator tube (gold top) for subsequent determinations. ??Contact the Clinical Chemistry Laboratory if there are any qu estions. Chloride 99 98 - 107 mmol/L [facility] LABORATORY CO2 20 (L) 22 - 31 mmol/L [facility] LABORATORY Anion Gap 15 5 - 15 mmol/L [facility] LABORATORY Calcium 9.0 8.5 - 10.5 mg/dL [facility] LAB[facility]ATORY Total Protein 5.4 (L) 6.1 - 8.0 g/dL [facility] LABORATORY Albumin 3.6 3.2 - 5.2 g/dL [facility] LABORATORY AST 15 0 - 39 unit/L [facility] LAB[facility] ALT 19 0 - 55 unit/L [facility] LAB[facility] Alk Phos 70 40 - 130 unit/L [facility] LABORATORY Total Bilirubin 0.4 0.2 - 1.3 mg/dL [facility] LABORATORY Estimated GFR 36 (L) >=60 mL/min/1.73 m?? [facility] LAB[facility] Comment: This patient's estimated GFR was calcula charlie using the 2020 CKD-EPI equation. The estimated GFR can vary from the fer ured GFR by up to 30% in the absence of rapidly changing kidney function. Assess ment of the estimated GFR is not appropriate when creatinine concentratio ns are rapidly changing. For clinical situations in which a more precise estim ate of GFR is necessary, consider alternative methods of GFR estimation oliva ch as a 24-hour urine creatinine clearance. Assignment of CKD stage 1-5 for patients with an eGFR near the transition point between stages may be based on clinical assessment of muscle mass and symptoms in addition to eGFR. Specimen Anatomical Collection Method Collection Time Receive d Time (Source) Location / / Volume Laterality Blood 02/10/2022 8:45 AM 9:03 EDT AM EDT Resulting Agency Comment Spec In Lab Dilshad Osullivan MD CHEMISTRY ORDERABLES Performing Organization Address City/State/[place] [address] (ABNORMAL) Potassium (02/03/2022 2:19 PM EDT)Only the most recent of2 results within the time period is included. athologist Signature Potassium 6.3 3.5 - 5.0 JIA ARASELI (Critical) mmol/L [facility] Comment: called by JOSELITO read back by Qi Zambrano/ 15:52 Please note: ??Patients with WBC >100,00 0 may have falsely elevated Potassium levels. ??For accurate Potassium quantif ication in these patients send serum separator tube (gold top) for subsequent determinations. ??Contact the Clinical Chemistry Laboratory if there are any qu estions. Specimen Anatomical Collection Method Collection Time Receive d Time (Source) Location / / Volume Laterality Blood 02/03/2022 2:19 PM 2 2:34 EDT PM EDT Resulting Agency Comment Spec In Lab Dilshad Osullivan MD CHEMISTRY ORDERABLES Performing Organization Address City/State/[place] [address] Duplex for DVT, Leg, Unilat (02/03/2022 9:42 AM EDT) Component Value Ref Test Analysis Performed At [facility] Range Method Time Signature VB Text Department: Vascular Surgery Lab VASCUBASE Report Patient: [id number] (ANGELICA IVERSON) CPT: 06701 Referring Physician: DILSHAD OSULLIVAN ?? Phone: Indications: ??RIGHT LE swelling Findings: RIGHT: There is occlusive thrombus in the femoral vein dista l thigh and popliteal vein. Posterior tibial and peroneal veins were p oorly visualized, however, no flow identified by color mode; suspect they are thrombosed. Patent common femoral vein and popliteal vein wi th spontaneous, respirophasic Doppler waveforms that respond normally to augme ntation maneuvers. The common femoral vein, saphenofemoral junction, and femor al vein through the mid thigh thigh are fully compressible. Interpretation: RIGHT: ??Acute lower extremity occlusive deep venous thrombo sis. Comparison: Previous exam done 07/12/2021 was negative for D VT. Notification: Dr. Osullivan was informed of these preliminary f indings. Electronically Signed by: YOLETTE KHAN on 2022-02-05 09:04:21 AM VB Text End of Report VASCUBASE Report Specimen (Source) Anatomical Collection Method Collection Time Re ceived Time Location / / Volume Laterality 02/03/2022 9:42 AM EDT Dilshad Osullivan MD VASCULAR ORDERABLES Performing Organization Address City/State/ZIP Code Phon e Number [facility] Antibody screen manual (02/03/2022 7:50 AM EDT)Only the most recent of7 results within the time period is included. Analysis Performed At Path logist Time Signature AB Screen Negative [facility] LABORATORY Specimen Anatomical Collection Method Collection Time Receive d Time (Source) Location / / Volume Laterality Blood Venous Draw / 02/03/2022 7:50 AM 02/04/20 22 8:01 Unknown EDT AM EDT Resulting Agency Comment Spec In Lab Dilshad Osullivan MD BLOOD BANK ORDERABLES Performing Organization Address City/[facility]/[place] [address] ABORh Type Manual (02/03/2022 7:50 AM EDT)Only the most recent of7 resultswithin the time period is included. [facility] [employer] Method Time Signature Expires at 02/06/2022 JIA ARASELI [id number] on: [facility] LABORATORY ABORh Type O Neg [facility] LABORATORY Specimen Anatomical Collection Method Collection Time Receive d Time (Source) Location / / Volume Laterality Blood Venous Draw / 02/03/2022 7:50 AM 02/04/20 22 8:01 Unknown EDT AM EDT Resulting Agency Comment Spec In Lab Dilshad Osullivan MD BLOOD BANK ORDERABLES Performing Organization Address City/[facility]/[place] [address] (ABNORMAL) EBV PCR Quantitative (02/03/2022 7:50 AM EDT)Only the most recent of6 resultswithin the time period is included. [facility] Not[employer] Method Time Signature EBV DNA BY <35 (A) [facility]detected [facility] IU/mL [facility] LAB[facility]ORY Comment: Result in log IU/mL is <1.54. EBV DNA is detected, but level present i s <35 IU/mL (<1.54 log IU/mL). This assay cannot accurately quantify EBV DNA below this level. ADDITIONAL INFORMATIO N The quantification range of this assay i s 35 to 100,000,000 IU/mL (1.54 log to 8.00 log IU/mL). Test ing was performed using the jasmeet EBV test ([employer] with the jasmeet 6800 System. Test Performed by: [facility] [address] [address] Blackjack Supervisor: Randal Aparicio M.D. Ph. D.; CLIA# [id number] Specimen Anatomical Collection Method Collection Time Receive d Time (Source) Location / / Volume Laterality Blood 02/03/2022 7:50 AM 2 9:44 EDT AM EDT Resulting Agency Comment Spec In Lab Dilshad Osullivan MD IMMUNOLOGY ORDERABLES Performing Organization Address City/[facility]/ZIP Code Phon e Number [address] Phosphorus (01/14/2022 3:20 AM EDT)Only the most recent of22 resultswithin the time period is included. athologist Signature Phosphorus 3.6 2.5 - 4.5 [facility] mg/dL [facility] LABORATORY Specimen Anatomical Collection Method Collection Time Receive d Time (Source) Location / / Volume Laterality Blood 01/14/2022 3:20 AM 2 3:37 EDT AM EDT Resulting Agency Comment Spec In Lab Moisés Mcgill MD CHEMISTRY ORDERABLES Performing Organization Address City/[facility] Phon e Number [address] (ABNORMAL) Basic Metabolic Panel (non-fasting) (01/14/2022 3:20 AM EDT)Only the most recent of24 resultswithin the time period is included. athologist Signature Glucose Lvl 109 65 - 199 [facility] mg/dL [facility] LAB[facility]ORY Comment: Diabetes: >=200 mg/dL plus symp toms BUN 38 (H) 10 - 20 mg/dL [facility] LABORATORY Creatinine 1.31 0.80 - 1.50 mg/dL [facility] LABOR[facility]ORY Sodium 134 (L) 135 - 145 mmol/L [facility] Potassium 5.0 3.5 - 5.0 mmol/L [facility] Comment: Please note: ??Patients with WBC >100,00 0 may have falsely elevated Potassium levels. ??For accurate Potassium quantif ication in these patients send serum separator tube (gold top) for subsequent determinations. ??Contact the Clinical Chemistry Laboratory if there are any qu estions. Chloride 102 98 - 107 mmol/L [facility]OR[facility]ORY CO2 21 (L) 22 - 31 mmol/L [facility]OR[facility] Anion Gap 11 5 - 15 mmol/L [facility] LABOR[facility]ORY Calcium 8.3 (L) 8.5 - 10.5 mg/dL [facility] Estimated GFR 58 (L) >=60 mL/min/1.73 m?? [facility] Comment: This patient? s estimated glomerular filtration rate (eGFR) is between 58 mL/min/1.73 m2 (patients with less muscl e mass per kg body weight) and 68 mL/min/1.73 m2 (patients with more muscl e mass per kg body weight) as determined by the CKD-EPI equation. Asse ssment of eGFR is not appropriate when creatinine concentrations are rapidly ch anging. For clinical decisions where creatinine clearance will affect therapy , a 24-hour urine creatinine clearance may be advised. Assignment of CKD stage 1 - 5 for patien ts with an eGFR near the transition point between stages may be based on cli nical assessment of muscle mass and symptoms in addition to eGFR. Specimen Anatomical Collection Method Collection Time Receive d Time (Source) Location / / Volume Laterality Blood 01/14/2022 3:20 AM 3:37 EDT AM EDT Resulting Agency Comment Spec In Lab Moisés Mcgill MD CHEMISTRY ORDERABLES Performing Organization Address City/State/ZIP Code Phon e Number [place] [id number] Scan, Peripheral Blood (01/13/2022 4:30 AM EDT)Only the most recent of5 results within the time period is included. [facility] Method Time Signature Plat Estimate Decreased [facility] RBC Morphology Abnormal [facility]ORY Macrocytes 1-5 /HPF [facility] Ovalocytes 1-5 /HPF [facility] Tear Drop Cells 1-5 /HPF [facility] Specimen Anatomical Collection Method Collection Time Receive d Time (Source) Location / / Volume Laterality Blood 01/13/2022 4:30 AM 2 4:41 EDT AM EDT Resulting Agency Comment Spec In Lab Robert Bailey DO HEMATOLOGY ORDERABLES Performing Organization Address City/State/[place] [address] EKG 12 Lead (01/11/2022 8:48 AM EDT)Only the most recent of3 resultswithin the time period is included. Component Value Ref Range Test [facility] Method Time At Signature Ventricular rate 96 BPM MUSE SYSTEM Atrial Rate 96 BPM MUSE SYSTEM P-R Interval 116 ms MUSE SYSTEM QRS Duration 80 ms MUSE SYSTEM Q-T Interval 316 ms MUSE SYSTEM QTC Calculated 399 ms MUSE SYSTEM (Bezet) Calculated P [place] 53 degrees MUSE SYSTEM Calculated R [place] -7 degrees MUSE SYSTEM Calculated T [place] 103 degrees MUSE SYSTEM INTERPRETATION Normal sinus rhythm MUSE SYSTEM Inferior infarct , age undetermined Abnormal ECG When compared with ECG of 10-JAN-2022 10:32, Inferior infarct is now Present Nonspecific T wave abnormality, worse in Anterior leads Confirmed by MD CUONG, SAYRA ([id number]) on 01/11/2022 12:33:30 PM Specimen Anatomical Collection Method Collection Time Receive d Time (Source) Location / / Volume Laterality 01/11/2022 8:48 AM 2 EDT 12:33 PM EDT Dilshad Osullivan MD ECG ORDERABLES Performing Organization Address City/[facility]/ZIP Code Phon e Number MUSE SYSTEM COVID-19 PCR (01/09/2022 1:00 PM EDT) [facility] Method Time Signature SARS-CoV-2 Not Detected Not Detected [facility] Comment: This result should be interpreted in com bination with the clinical observations, patient history and epidem iological information in making a final diagnosis. For testing of asymptomatic i ndividuals, assay performance characteristics and clinical utility hav e not been evaluated. Testing for SARS-CoV-2 (Severe acute respiratory syn drome coronavirus 2, formerly known as 2019 novel coronavirus or 2019-nCoV) to aid in the diagnosis of COVID-19 is performed using the [employer] S-CoV-2 Assay as authorized by the FDA Emergency Use Authorization (EUA). This EUA assay is intended for In-vitro Diagnostic (IVD) use with respiratory sp ecimens such as nasopharyngeal swabs collected from individuals during the ac glenda phase of infection. This assay is performed based on the instructions for use provided by [employer] and additional guidance provided by CDC and FDA. Testing is performed in the [facility] within the Department of Pathology and Laboratory Medicine at [facility], certified under the Clinical Laboratory Improvement Amendments of 1988 (CLIA), 42 U.S.C. 263a, to perform high complexi ty tests. Assay performance has been verified according to clinical laborator y regulatory requirements for use with specimens collected from individuals maksim pected of COVID-19. Test results are provided above. A result of Not Detecte d indicates that the viral RNA target is not present above the limit of detect ion, but does not preclude SARS-CoV-2 infection. False negative results may oc cur if a specimen is improperly collected, transported or handled; if am plification inhibitors are present; or if inadequate numbers of viral particles are present in the specimen. When a diagnostic test is negative, the possibi lity of a false negative result should be considered in the context of a patien t's recent exposures and the presence of clinical signs and symptoms consisten t with COVID-19. A result of Detected indicates that RNA from SARS-CoV-2 was d etected and the patient is infected. As required or requested by public health a uthorities, positive specimens may be sent for additional testing. Positive an d negative predictive values for this test are highly dependent on disease pre valence. A result of Invalid indicates that neither the viral RNA tar gets nor the internal control target was detected. An invalid result suggests the presence of inhibitors. Recollection and re-testing is recommend ed in the case of an invalid result. 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 Swab [facility] Specimen (Source) Anatomical Collection Method Collection Time Re ceived Time Location / / Volume Laterality Nasopharyngeal Swab 01/09/2022 1:00 01/09 PM EDT 3:28 PM EDT Comment: Symptoms->Surveillance Resulting Agency Comment Spec In Lab Dilshad Osullivan MD MICROBIOLOGY - GENERAL ORDER BRINA Performing Organization Address City/[facility] [place] [address] (ABNORMAL) Vancomycin, trough (01/08/2022 6:25 PM EDT) P athologist Signature Vanc Trough 22.1 mg/L [facility] (Critical) [facility] Comment: called by EB/read back by Radha Brown @ [phone] Therapeutic range for complicated infect ions such as bacteremia, endocarditis, osteomyelitis, meningitis, and hospital- acquired pneumonia caused by S. aureus: 15-20 mg/L Therapeutic range for other indications: 10-15 mg/L Toxic: >20 mg/L Reference: Vancomycin Therapeutic Monitoring: Sera reaves and Recommendations from the ASHP, IDSA and SIDP Task Force. ??Am J Health- Syst Pharm. 2009; 66:82-98 Specimen Anatomical Collection Method Collection Time Receive d Time (Source) Location / / Volume Laterality Blood 01/08/2022 6:25 PM 6:52 EDT PM EDT Resulting Agency Comment Spec In Lab Moisés Mcgill MD CHEMISTRY ORDERABLES Performing Organization Address City/[facility] [place] [address] XR Fluoro Guided Lumbar Puncture (01/08/2022 1:04 PM EDT) Anatomical Region Laterality Modality L-spine N/A Radio Fluoroscopy Specimen (Source) Anatomical Location Collection Method / Collectio n Time Received Time / Laterality Volume Impressions 01/08/2022 3:03 PM EDT Successful fluoroscopic-guided lumbar puncture without immediate complication. Resident/Fellow: Claudy Lewis MD Associate Provider: Yolette Solano APRN was present throughout this procedure Procedure performed by Allyssa Rodriguez I have personally reviewed the image(s) and the resident's interpretation and agree with the findings, Yolette Solano at 01/08/2022 3:03 PM Thank you for letting us participate in the care of this patient. ??If you are a health care provider and have any questi ons regarding this report, please contact the number below. ??For patients who have questions please contact the health family day care provider that requested your imaging first. ? 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 TECHNIQUE: Written informed consent was obtained during a prior lumbar puncture. After an extensive discussion with the p atient regarding the risks and benefits of the procedure, informed verbal consen t was obtained. With the patient positioned prone on the fluoroscopy tabl e, the L3-L4 interspace was localized using physical landmarks and fluoroscopy . The overlying skin was then prepped and draped in a sterile surgical fashion . A preprocedural timeout was performed per [facility] protocol. The patient's skin wa s anesthetized using less than 5 cc of 1% lidocaine without epinephrine. A 20-g auge, 3 1/2 inch spinal needle was advanced into the subarachnoid space. Af ter no cerebral spinal fluid returned, the L4-L5 interspace was localized using physical landmarks and fluoroscopy. The patient's skin was anesthetized using le ss than 5 cc of 1% lidocaine without epinephrine. A 20-gauge, 3 1/2 inch spin al needle was advanced into the subarachnoid space, which was confirmed with return of blood tinged cerebral spinal fluid that cleared with collectio n of subsequent tubes. Opening pressure was 7 cm H2O. The blood tinged CSF in th e first tube clotted. A total of 9 cc of clear cerebral spinal fluid was collecte d and divided into 3 subsequent tubes. These tubes were sent for laboratory angela lysis, as per the ordering physician. There were no immediate complications. COMPARISON: Fluoroscopic images lumbar p uncture 09/09/2021 FINDINGS: 9cc of clear cerebrospinal fluid Opening pressure 7 cm H2O FLUOROSCOPY TIME: 0.13 minutes Procedure Note Yolette Solano, CAFETERIA MONITOR - 01/08/2022For matting of this note might be different from the original. 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 TECHNIQUE: Written informed consent was obtained during a prior lumbar puncture. After an extensive discussion with the p atient regarding the risks and benefits of the procedure, informed verbal consen t was obtained. With the patient positioned prone on the fluoroscopy tabl e, the L3-L4 interspace was localized using physical landmarks and fluoroscopy . The overlying skin was then prepped and draped in a sterile surgical fashion . A preprocedural timeout was performed per [facility] protocol. The patient's skin wa s anesthetized using less than 5 cc of 1% lidocaine without epinephrine. A 20-g auge, 3 1/2 inch spinal needle was advanced into the subarachnoid space. Af ter no cerebral spinal fluid returned, the L4-L5 interspace was localized using physical landmarks and fluoroscopy. The patient's skin was anesthetized using le ss than 5 cc of 1% lidocaine without epinephrine. A 20-gauge, 3 1/2 inch spin al needle was advanced into the subarachnoid space, which was confirmed with return of blood tinged cerebral spinal fluid that cleared with collectio n of subsequent tubes. Opening pressure was 7 cm H2O. The blood tinged CSF in th e first tube clotted. A total of 9 cc of clear cerebral spinal fluid was collecte d and divided into 3 subsequent tubes. These tubes were sent for laboratory angela lysis, as per the ordering physician. There were no immediate complications. COMPARISON: Fluoroscopic images lumbar p uncture 09/09/2021 FINDINGS: 9cc of clear cerebrospinal fluid Opening pressure 7 cm H2O FLUOROSCOPY TIME: 0.13 minutes IMPRESSION Successful fluoroscopic-guided lumbar pu ncture without immediate complication. Resident/Fellow: Claudy Lewis MD Associate Provider: Yolette Solano APRN was present throughout this procedure Procedure performed by Allsysa Rodriguez I have personally reviewed the image(s) and the resident's interpretation and agree with the findings, Yolette Solano at 01/08/2022 3:03 PM Thank you for letting us participate in the care of this patient. If you are a health care provider and have any questi ons regarding this report, please contact the number below. For patients w ho have questions please contact the health family day care provider that requested your imaging first. Dilshad Osullivan MD IMG FLUORO ORDERABLES HSV 1 and 2 PCR (01/08/2022 11:18 AM EDT) [facility] Method Time Signature HSV-1 PCR Not Detected Not Detected [facility] HSV-2 PCR Not Detected Not Detected [facility] HSV Source CSF [facility] Comment: The only FDA approved specimen types for this assay are CSF and genital lesions. Specimen (Source) Anatomical Collection Method Collection Time Re ceived Time Location / / Volume Laterality Cerebrospinal Fluid 01/08/2022 11:18 05/2 12/2021 AM EDT 1:32 PM EDT Comment: Specimen Type:->Cerebrospinal F luid Resulting Agency Comment Spec In Lab Dilshad Osullivan MD MICROBIOLOGY - GENERAL ORDER BRINA Performing Organization Address City/[facility]/[place] [address] [facility] [address] Body Fluid HOLD Cerebrospinal Fluid (01/08/2022 11:18 AM EDT) [facility] [employer] Method Time Signature Hold BF Type Sample in [facility] lab. [facility] Specimen Anatomical Collection Method Collection Time Receive d Time (Source) Location / / Volume Laterality Body Fld 01/08/2022 11:18 01/08/2022 2:01 AM EDT PM EDT Dilshad Osullivan MD BODY FLUIDS AND STOOLS ORDER BRINA Performing Organization Address City/[facility]/[place] [address] [facility] Drive Fluid Review Report (01/08/2022 11:18 AM EDT) Component Value Ref Test Analysis Performed At [facility] Range Method Time Signature Fluid Review [id number] ? Location: [facility]; [facility]; [facility] The signing pathologist has (i) examined the relevant preparation(s) for the [facility] specimen(s) and (ii) rendered or confirmed the diagnosis(es) . HOSPITAL LABORATORY . ? Fl uid Review DIAGNOSIS CEREBROPSINAL FLUID: traumatic tap. ??No malignan t cells are seen on the cytocentrifuge preparation. Electronically signed by: ?Chuyita STEPHENSON, Eliseo Verified: ??01/08/2022 18:15 ??Hematopathologist Performed at: ??-[facility] Dept. of Pathology, [place], [place] DISCUSSION The specimen shows possible contaminatio n with peripheral blood and may not be reflective of true CSF parameters. ADDITIONAL STUDIES WBC/uL: 83 RBC/uL: 1293 200 cells counted on cytocentrifuge preparation. Numerous small and ??interme diate ??sized mature lymphocytes, reactive macrophages, neutrophils seen. CLINICAL INFORMATION Specimen: ? CSF Clinical Diagnosis: ? 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 IT chemo, eval csf Specimen (Source) Anatomical Collection Method Collection Time Re ceived Time Location / / Volume Laterality 01/08/2022 11:18 AM EDT Hortensia Tenorio MD PATHOLOGY/CYTOLOGY ORDERABLE S Performing Organization Address City/[facility]/ZIP Code Phon e Number [address] (ABNORMAL) CSF Cell Count (01/08/2022 11:18 AM EDT) P athologist Signature Tube # Ct CSF 4 [facility] Nucleated CSF 83 (H) 0 - 5 /mcl [facility] Comment: If Nucleated CSF CT result equals Zero, no smear is made and no Differential is performed. If Nucleated CSF CT result is 1-5 / mcL, a smear is made and scanned but no results are reported unless abnormalitie s are noted. If Nucleated CSF CT result is 6 /mcL or greater, a smear is made and manual differential is performed and reported. Nucleated CSF CT results on a CSF fluid must be correlated with clinical condition. RBC CSF CT 1,293 /mcl [facility] Neutrophil CSF 2 % [facility] Lymphocyte CSF 93 % [facility] Macrophage CSF 5 % [facility] Tot Diff Ct CSF 200 Cells [facility] Specimen (Source) Anatomical Collection Method Collection Time Re ceived Time Location / / Volume Laterality Cerebrospinal Fluid 01/08/2022 11:18 05/2 12/2021 AM EDT 1:22 PM EDT Resulting Agency Comment Spec In Lab Hortensia Tenorio MD BODY FLUIDS AND STOOLS ORDER BRINA Performing Organization Address City/[facility]/ZIP Code Phon e Number [address] CSF DESC 4 (01/08/2022 11:18 AM EDT) Patholo gist Method Time Signature Tube Num CSF 4 [facility] #4 [facility] Color CSF #4 Colp Colorless [facility] Appear CSF #4 Slightly Clear [facility] LABORATORY Tot Vol CSF 5.8 mL [facility] #4 [facility] Specimen (Source) Anatomical Collection Method Collection Time Re ceived Time Location / / Volume Laterality Cerebrospinal Fluid 01/08/2022 11:18 05/2 12/2021 AM EDT 1:22 PM EDT Resulting Agency Comment Spec In Lab Hortensia Tenorio MD BODY FLUIDS AND STOOLS ORDER BRINA Performing Organization Address City/[facility]/ZIP Code Phon e Number [address] CSF DESC 3 (01/08/2022 11:18 AM EDT) Patholo gist Method Time Signature Tube Num CSF 3 [facility] #3 [facility] Color CSF #3 Colp Colorless [facility] Appear CSF #3 Slightly Clear [facility] LABORATORY Tot Vol CSF 1.5 mL [facility] Specimen (Source) Anatomical Collection Method Collection Time Re ceived Time Location / / Volume Laterality Cerebrospinal Fluid 01/08/2022 11:18 05/2 12/2021 AM EDT 1:22 PM EDT Resulting Agency Comment Spec In Lab Hortensia Tenorio MD BODY FLUIDS AND STOOLS ORDER BRINA Performing Organization Address City/[facility]/ZIP Code Phon e Number [address] CSF DESC 2 (01/08/2022 11:18 AM EDT) P athologist Signature Tube Num CSF 2 [facility] #2 [facility] Color CSF #2 Colp Colorless [facility] Appear CSF #2 Hazy Clear [facility] Tot Vol CSF #2 1.3 mL [facility] Specimen (Source) Anatomical Collection Method Collection Time Re ceived Time Location / / Volume Laterality Cerebrospinal Fluid 01/08/2022 11:18 05/2 12/2021 AM EDT 1:22 PM EDT Resulting Agency Comment Spec In Lab Hortensia Tenorio MD BODY FLUIDS AND STOOLS ORDER BRINA Performing Organization Address City/[facility]/[place] [address] CSF DESC 1 (01/08/2022 11:18 AM EDT) P athologist Signature Tube Num CSF 1 [facility] Color CSF #1 Red Colorless [facility] Appear CSF #1 Clotted Clear [facility] Tot Vol CSF #1 3.0 mL [facility] Specimen (Source) Anatomical Collection Method Collection Time Re ceived Time Location / / Volume Laterality Cerebrospinal Fluid 01/08/2022 11:18 05/2 12/2021 AM EDT 1:22 PM EDT Resulting Agency Comment Spec In Lab Hortensia Tenorio MD BODY FLUIDS AND STOOLS ORDER BRINA Performing Organization Address City/[facility]/ZIP Code Phon e Number [address] CSF Cell Count 2nd count (01/08/2022 11:18 AM EDT) P athologist Signature Tube #2nd CT 3 [facility] RBC CSF CT #2 1887 /mcl [facility] Specimen (Source) Anatomical Collection Method Collection Time Re ceived Time Location / / Volume Laterality Cerebrospinal Fluid 01/08/2022 11:18 05/2 12/2021 AM EDT 1:22 PM EDT Resulting Agency Comment Spec In Lab Hortensia Tenorio MD BODY FLUIDS AND STOOLS ORDER BRINA Performing Organization Address City/[facility]/[place] [address] Leukemia Lymphoma Screen Cerebrospinal Fluid (01/08/2022 11:18 AM EDT) Patholo gist Method Time Signature LLS BF Type CSF [facility] Leukemia See Comment [facility] Lymphoma [facility] LABORATORY Comment: See Fluid Review Report [id number] under Hematopathology Reports. Specimen (Source) Anatomical Collection Method Collection Time Re ceived Time Location / / Volume Laterality Cerebrospinal Fluid 01/08/2022 11:18 12/16 AM EDT 1:22 PM EDT Resulting Agency Comment Spec In Lab Dilshad Osullivan MD BODY FLUIDS AND STOOLS ORDER BRINA Performing Organization Address City/State/ZIP Code [place] [address] VZV PCR, CSF (01/08/2022 11:18 AM EDT) Component Value Ref Test Analysis Performed At [facility] gist Range Method Time Signature Varicella-Zo JIA ster PCR Test ?Result ? Flag ??Unit ??RefValue [facility] Varicella-Zoster Virus PCR HOS PITAL ??Specimen Source ? CSF LABORATORY ??Varicella-Zoster Virus PC R ?Negative ? Negative ? ADDITIONAL INFORMATION ------ ?This test was developed and its performance characteri stics ?determined by [facility] in a manner consistent with CLIA ?requirements. This test has not been cleared or approv ed by ?the U.S. Food and Drug Administration. ?Test Performed by: ?[facility] ?[address] [place] [address] ?Blackjack Supervisor: Randal Aparicio M.D. Ph.D.; CLIA# [id number] Specimen (Source) Anatomical Collection Method Collection Time Re ceived Time Location / / Volume Laterality Cerebrospinal Fluid 01/08/2022 11:18 05/2 12/2021 AM EDT 4:03 PM EDT Resulting Agency Comment Spec In Lab Dilshad Osullivan MD MICROBIOLOGY - GENERAL ORDER BRINA Performing Organization Address City/State/ZIP Code Phon e Number [address] Enterovirus PCR, CSF (01/08/2022 11:18 AM EDT) [facility] gist Method Time Signature Enterovirus Negative Negative [facility] LABORATORY Specimen (Source) Anatomical Collection Method Collection Time Re ceived Time Location / / Volume Laterality Cerebrospinal Fluid 01/08/2022 11:18 05/2 12/2021 AM EDT 1:32 PM EDT Resulting Agency Comment Spec In Lab Dilshad Osullivan MD MICROBIOLOGY - GENERAL ORDER BRINA Performing Organization Address City/[facility]/ZIP Code Phon e Number [address] Cryptococcal Antigen CSF ([facility]/CGP/APD/[facility]) (01/08/2022 11:18 AM EDT) [facility] Method Time Signature CSF Cryptococcal Negative Negative [facility] LABORATORY Specimen (Source) Anatomical Collection Method Collection Time Re ceived Time Location / / Volume Laterality Cerebrospinal Fluid 01/08/2022 11:18 05/2 12/2021 AM EDT 1:40 PM EDT Resulting Agency Comment Spec In Lab Dilshad Osullivan MD MICROBIOLOGY - GENERAL ORDER BRINA Performing Organization Address City/[facility]/ZIP Code Phon e Number [address] CSF Culture (01/08/2022 11:18 AM EDT) Component Value Ref Test Analysis Performed At [facility] Range Method Time Signature Central No growth [facility] LABORATORY Gram Stain Cytocentrifuge Gram Stain performed [facility] No Neutrophils seen. [facility] No microorganisms seen. [facility]ORATORY Specimen (Source) Anatomical Collection Method Collection Time Re ceived Time Location / / Volume Laterality Cerebrospinal Fluid 01/08/2022 11:18 05/2 12/2021 AM EDT 1:32 PM EDT Resulting Agency Comment Spec In Lab Dilshad Osullivan MD MICROBIOLOGY - GENERAL ORDER BRINA Performing Organization Address City/[facility]/[place] [address] (ABNORMAL) Protein Level CSF (01/08/2022 11:18 AM EDT) Analysis Performed At Patho logist Time Signature T Protein, CSF 346 (H) 15 - 45 [facility]dL [facility] Xanthochromia Slight [facility] Specimen (Source) Anatomical Collection Method Collection Time Re ceived Time Location / / Volume Laterality Cerebrospinal Fluid 01/08/2022 11:18 05/2 12/2021 AM EDT 1:22 PM EDT Resulting Agency Comment Spec In Lab Dilshad Osullivan MD BODY FLUIDS AND STOOLS ORDER BRINA Performing Organization Address City/[facility]/[place] [address] Glucose Level CSF (01/08/2022 11:18 AM EDT) P athologist Signature Glucose, CSF 67 mg/dL [facility] Comment: CSF at equilibrium equals appro ximately 60-80% of plasma glucose. Specimen (Source) Anatomical Collection Method Collection Time Re ceived Time Location / / Volume Laterality Cerebrospinal Fluid 01/08/2022 11:18 05/2 12/2021 AM EDT 1:22 PM EDT Resulting Agency Comment Spec In Lab Dilshad Osullivan MD BODY FLUIDS AND STOOLS ORDER BRINA Performing Organization Address City/[facility]/[place] [address] (ABNORMAL) Prothrombin Time (01/08/2022 9:15 AM EDT) P athologist Signature PT 16.2 (H) 9.4 - 12.5 [facility] LABORATORY INR 1.4 [facility] Comment: An INR <2.0 indicates adequate procoagul ant activity for hemostasis in most patients without underlying bleeding dis orders, though the INR may not adequately reflect hemostatic capacity i n patients with liver disease and synthetic impairment. The recommended ta rget INR range for therapeutic anticoagulation is 2.0 ? 3.0 for most applications, though lower and higher ranges may be appropriate depending on c linical circumstances. Specimen Anatomical Collection Method Collection Time Receive d Time (Source) Location / / Volume Laterality Blood 01/08/2022 9:15 AM 2 9:33 EDT AM EDT Resulting Agency Comment Spec In Lab Yolette Solano CAFETERIA MONITOR HEMATOLOGY ORDERABLES Performing Organization Address City/State/ZIP Code Phon e Number [place] [id number] 24 Hour EEG, Portable (01/08/2022 5:00 AM EDT) Narrative Rene Adams MD - 01/08/2022 5 :00 AM EDT Graham Ramirez MD ? 01/08/2022 12:23 PM [facility] Department of Neurology Continuous EEG Report Patient: Angelica Iverson Jr., [id number] Date: 01/08/22 Start Time: 17:16 on 01/07/22 End Time: 11:18 on 01/08/22 Duration ~18 hours Fellow: Graham Ramirez MD Attending: Rene Adams MD History: Per notes, Angelica Iverson Jr. is a 61 y.o. 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 Neurology is consulted for ongoing encep halopathy. Methods: A 21 channel digitized electroe ncephalogram was by the [facility] Clinical Neurophysio logy Laboratory. The 10/20 international system of electrode placement was used and bipolar and referential electrode montag es were recorded. Video was recorded during the session. Background Symmetry ? Symmetric Continuity ? Continuous Breach Present ? Absent PDR ? Present 6-7Hz Background EEG Frequency ? Theta AP Gradient Present ? Present Variability ?Present Reactivity ? Present Voltage ? Normal Stage II Sleep Transients ? Present and normal Periodic/Rhythmic Patterns ? Yes ??Periodic/Rhythmic Patterns ?Generalized (G) Nature (Main Term 2) ??Periodic Discharges (PD) Major Modifiers ??Prevalence ? Occasional (1-9%) ??Duration ?Very Brief (<10 sec) ?Frequency ? 1.5/s} ??Phases ?3 ?Sharpness ?Sharp (70-200ms) ??Absolute Amplitude ?Medium (50-199??V) ??Triphasic Morphology ?Yes ??Lag ?A-P (Anterior-Posterio r) ? Sporadic Epileptiform Discharges Absent ? Interpretation This EEG is abnormal due to: 1. Occasional generalized periodic disch arges at 1-1.5 Hz coming in isolation or as very brief 2-3 second runs. ??This discharges often have a triphasic morphology and an terior to posterior lag 2. Continuous generalized slowing of the background in the theta range with a PDR of 6-7Hzz CLINICAL CORRELATION: This abnormal EEG is suggestive of a dif fuse mild to moderate nonspecific cerebral dysfunction. ??No s eizures or epileptiform discharges seen. Graham Ramirez MD Clinical Neurophysiology Fellow Dilshad Osullivan MD NEUROLOGY ORDERABLES MRI Brain wwo Contrast (Generic) (01/07/2022 9:34 PM EDT) Anatomical Region Laterality Modality Head Magnetic Resonance Specimen (Source) Anatomical Location Collection Method / Collectio n Time Received Time / Laterality Volume Impressions 01/08/2022 9:21 AM EDT 1. ??No new intra-axial lesion or abnormal enhancement. 2. ??, As curvilinear site of blood prod ucts in the left frontal lobe potentially representing small area of hemorrhage or thrombosed developmental venous anomaly Thank you for letting us participate in the care of this patient. ??If you are a health care provider and have any questi ons regarding this report, please contact the number below. ??For patients who have questions please contact the health family day care provider that requested your imaging first. ? Electronically signed by: Hosea Crocker MD, [facility] ([phone]), at 01/08/2022 9:21 AM Narrative 01/08/2022 9:21 AM EDT EXAMINATION: MRI BRAIN WWO CONTRAST (GENERIC) CLINICAL HISTORY: Mental status change, unknown cause 61M with pmh FLT3+ AML s/p allo SCT pres enting with persistent AMS TECHNIQUE: MRI of the brain was performed before an d after the intravenous administration of 16cc Dotarem. COMPARISON: MRI of brain of 11/10/2021 FINDINGS: Study quality is moderately marred by pa tient motion and mildly affected by the presence of scalp electrodes. There is minor poorly marginated T2 prol ongation in the deep white matter of the bilateral cerebral hemispheres, more ext ensive on the right. There is no acute infarction, mass, abnormal enhancement, or extra-axial collection. The orbits are of normal appearance. Intracranial f low-voids show no abnormality. No expansile or abnormal enhancing osseous lesion is present. Leptomeninges are of normal appearance. The previously identified focus of possi ble infarction in the right frontal lobe remains hyperintense on the diffusion-we ighted sequence in the FLAIR sequence but shows no decreased ADC. It therefore likely represents an area of T2 shine through. The linear area of susceptibility-relate d signal loss in the deep white matter of the left frontal lobe has a complex c urvilinear configuration. While might have represented a developmental venous anomaly it does not show postcontrast enhancement and is therefore likely to r epresent a small area of hemorrhage or a thrombosed DVA. Procedure Note Hosea Crocker MD - 01/08/2022Format ting of this note might be different from the original. 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 COMPARISON: MRI of brain of 11/10/2021 FINDINGS: Study quality is moderately marred by pa tient motion and mildly affected by the presence of scalp electrodes. There is minor poorly marginated T2 prol ongation in the deep white matter of the bilateral cerebral hemispheres, more ext ensive on the right. There is no acute infarction, mass, abnormal enhancement, or extra-axial collection. The orbits are of normal appearance. Intracranial f low-voids show no abnormality. No expansile or abnormal enhancing osseous lesion is present. Leptomeninges are of normal appearance. The previously identified focus of possi ble infarction in the right frontal lobe remains hyperintense on the diffusion-we ighted sequence in the FLAIR sequence but shows no decreased ADC. It therefore likely represents an area of T2 shine through. The linear area of susceptibility-relate d signal loss in the deep white matter of the left frontal lobe has a complex c urvilinear configuration. While might have represented a developmental venous anomaly it does not show postcontrast enhancement and is therefore likely to r epresent a small area of hemorrhage or a thrombosed DVA. IMPRESSION 1. No new intra-axial lesion or abnormal enhancement. 2. , As curvilinear site of blood produc ts in the left frontal lobe potentially representing small area of hemorrhage or thrombosed developmental venous anomaly Thank you for letting us participate in the care of this patient. If you are a health care provider and have any questi ons regarding this report, please contact the number below. For patients w ho have questions please contact the health family day care provider that requested your imaging first. Electronically signed by: Hosea Crocker MD, [facility] ([phone]), at 01/08/2022 9:21 AM Dilshad Osullivan MD IMG MRI ORDERABLES TSH Wheeler (01/07/2022 1:40 PM EDT) P athologist Signature TSH 1.37 0.27 - 4.20 JIA MARX mcIU/mL [facility] Comment: Reference Interval (mcIU/mL): Females: ??First Trimester: 0.23-3.88 ??Second Trimester: 0.22-3.90 ??Third Trimester: 0.44-4.66 Specimen Anatomical Collection Method Collection Time Receive d Time (Source) Location / / Volume Laterality Blood 01/07/2022 1:40 PM 2 1:57 EDT PM EDT Resulting Agency Comment Spec In Lab Moisés Mcgill MD CHEMISTRY ORDERABLES Performing Organization Address City/[facility]/ZIP Code Phon e Number [address] Blood culture (01/07/2022 4:31 AM EDT)Only the most recent of4 resultswithin the time period is included. Patholo gist Method Time Signature Blood Culture No growth JAI MARX at 5 days. [facility] Specimen Anatomical Collection Method Collection Time Receive d Time (Source) Location / / Volume Laterality Blood 01/07/2022 4:31 AM 2 6:05 EDT AM EDT Comment: L arm Resulting Agency Comment Spec In Lab Moisés Mcgill MD MICROBIOLOGY - BLOOD ORDERAB LES Performing Organization Address City/[facility]/[place] [address] Head wo Contrast (Generic) (01/07/2022 4:01 AM EDT) Anatomical Region Laterality Modality Head Computed Tomography Specimen (Source) Anatomical Collection Method Collection Time Re ceived Time Location / / Volume Laterality 01/07/2022 4:20 AM EDT Impressions 01/07/2022 6:28 AM EDT No acute intracranial abnormality. Thank you for letting us participate in the care of this patient. ??If you are a health care provider and have any questi ons regarding this report, please contact the number below. ??For patients who have questions please contact the health family day care provider that requested your imaging first. ? 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 COMPARISON: MR brain 11/10/2021. CT head without contrast with multiphase CTA head and neck 11/10/2021. FINDINGS: Vann-white interface appears well differ entiated. Lateral ventricles are symmetric. Basal cisterns are patent. No global mass effect, midline shift, he rniation, large space-occupying process appreciated. No acute intracranial hemorrhage. Orbits: Normal Included paranasal sinuses: Minimal muco maggie thickening in the left maxillary sinus and bilateral ethmoid air cells. Mastoid air cells: Clear. Calvarium: Intact. Extracranial soft tissues: Unremarkable. Procedure Note Cinthya Ramirez MD - 01/07/2022Formattin g of this note might be different from the original. 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 COMPARISON: MR brain 11/10/2021. CT head without contrast with multiphase CTA head and neck 11/10/2021. FINDINGS: Vann-white interface appears well differ entiated. Lateral ventricles are symmetric. Basal cisterns are patent. No global mass effect, midline shift, he rniation, large space-occupying process appreciated. No acute intracranial hemorrhage. Orbits: Normal Included paranasal sinuses: Minimal muco maggie thickening in the left maxillary sinus and bilateral ethmoid air cells. Mastoid air cells: Clear. Calvarium: Intact. Extracranial soft tissues: Unremarkable. IMPRESSION No acute intracranial abnormality. Thank you for letting us participate in the care of this patient. If you are a health care provider and have any questi ons regarding this report, please contact the number below. For patients w ho have questions please contact the health family day care provider that requested your imaging first. Moisés Mcgill MD IMG CT ORDERABLES (ABNORMAL) Urinalysis Microscopic Exam (01/07/2022 12:13 AM EDT) athologist Signature RBC UA 5 (H) 0 - 3 /HPF [facility] Comment: Interpret with caution, manual microscopic results are from an unspun specimen. WBC UA 2 0 - 3 /HPF [facility] Comment: Interpret with caution, manual microscopic results are from an unspun specimen. Bacteria UA Few (A) None /HPF [facility] Comment: Interpret with caution, manual microscopic results are from an unspun specimen. Squam Epith UA 1 <=4 /HPF [facility] Comment: Interpret with caution, manual microscopic results are from an unspun specimen. Hyaline Cast UA 1 0 - 2 /LPF [facility] Comment: Interpret with caution, manual microscopic results are from an unspun specimen. Specimen (Source) Anatomical Collection Method Collection Time Re ceived Time Location / / Volume Laterality Indwelling 01/07/2022 12:13 01/07/2022 Catheter Urine AM EDT 12:26 AM EDT Resulting Agency Comment Spec In Lab Robert Bailey DO URINE ORDERABLES Performing Organization Address City/State/[place] [address] (ABNORMAL) Urinalysis with reflex Culture (01/07/2022 12:13 AM EDT)Only the most recent of2 resultswithin the time period is included. Patholo gist Method Time Signature Glucose UA Negative Negative [facility] Protein UA 30 (A) Negative [facility]/dL [facility] Bilirubin UA Negative Negative [facility] mg/dL [facility] Comment: Clinical correlation required for positi ve Urine Bilirubin results as false positive may occur with some drugs and d rug related products. If a false positive is suspected a serum total bili estrella should be considered if clinically indicated. Urobilinogen UA 0.2 Normal mg/dL [facility] pH UA 6.0 5.0 - 8.0 [facility] Blood UA Large (A) Negative mg/dL [facility] Ketones UA 15 (A) Negative mg/dL [facility] Comment: Urinalysis result NOT critical without a combination of Glucose greater than or equal to 500mg/dl AND Ketones greater th an or equal to 80mg/dl. Nitrite UA Negative Negative [facility] Leukocytes UA Negative Negative [facility] LABORATORY Appearance UA Clear Clear [facility] Spec [place] UA 1.025 1.005 - 1.030 [facility] Color UA Yellow [facility] Culture Reflexed No [facility] Specimen (Source) Anatomical Collection Method Collection Time Re ceived Time Location / / Volume Laterality Indwelling 01/07/2022 12:13 01/07/2022 Catheter Urine AM EDT 12:26 AM EDT Resulting Agency Comment Spec In Lab Moisés Mcgill MD URINE ORDERABLES Performing Organization Address City/State/[place] [address] (ABNORMAL) Hepatic Function Panel (01/06/2022 11:20 PM EDT)Only the most recent of6 resultswithin the time period is included. athologist Signature Total Protein 5.6 (L) 6.1 - 8.0 [facility] g/dL [facility] Albumin 2.8 (L) 3.2 - 5.2 [facility] g/dL [facility] AST 17 0 - 39 [facility] unit/L [facility] ALT 10 0 - 55 [facility] unit/L [facility] Alk Phos 104 40 - 130 [facility] unit/L [facility] Total 0.6 0.2 - 1.3 [facility] Bilirubin mg/dL [facility] Bili, Direct 0.1 0.0 - 0.3 [facility] mg/dL [facility] Specimen Anatomical Collection Method Collection Time Receive d Time (Source) Location / / Volume Laterality Blood 01/06/2022 11:20 01/06/2022 PM EDT 11:55 PM EDT Resulting Agency Comment Spec In Lab Moisés Mcgill MD CHEMISTRY ORDERABLES Performing Organization Address City/State/[place] [address] COVID-19 PCR (01/06/2022 11:10 PM EDT)Only the most recent of2 resultswithin the time period is included. [facility] Method Time Signature SARS-CoV-2 Not Detected Not Detected JIA RNA PCR [facility]3] LABORATORY Comment: This result should be interpreted in com bination with the clinical observations, patient history and epidem iological information. For testing of asymptomatic individuals, assay performa nce characteristics and clinical utility have not been evaluated. Testing for SARS-CoV-2 (Severe acute respiratory syndrome coronavirus 2, form erly known as 2019 novel coronavirus or 2019-nCoV) to aid in the diagnosis of CO VID-19 is performed using the Simplexa COVID-19 Direct Assay by [employer] as authorized by the FDA issued Emergency Use Authorization (EUA). This assay is intended for In-vitro Diagnostic (IVD) use with nasopharyngeal swabs collected from individuals meeting the CDC criteria for testing. Th e assay is performed based on the instructions for use and additional guid ance provided by the FDA. Testing is performed in the Microbiology Laboratory within the Department of Pathology and Laboratory Medicine at [facility], certified under the Clinical Laboratory Improvement Amendmen ts of 1988 (CLIA), 42 U.S.C. section 263a, to perform high complexity tests. Assay performance has been verified according to clinical laboratory regulat ory requirements. Test results are provided above. A resul t of Not Detected indicates that the viral RNA target is not present but does not preclude SARS-CoV-2 infection. False negative results may occur if a sp ecimen is improperly collected, transported or handled; if amplification inhibitors are present; or if inadequate numbers of viral particles ar e present in the specimen. A result of Detected suggests a current or recent infection and the patient is presumed to be infected. Positive and negative pr edictive values for this test are highly dependent on disease prevalence. A result of Invalid indicates the inability to conclusively determine the presence or absence of SARS-CoV-2 RNA in the sample which can be due to a vari ety of factors. Recollection is recommended in the case of an invalid re sult. CDC COVID-19 criteria for testing on hum an specimens and clinical management guidance information are available at e CDC Coronavirus Disease 2019 (COVID-19) webpage under Information fo r Healthcare Professionals (https://www.cdc.gov/coronavirus/2019-nc ov/hcp/index.html). Additional information about this and ot her EUA tests can be found in provider and patient fact sheets at the following FDA website: https://www.fda.gov/medical-devices/hpwvjtbqiyb-dukozst-7300-wvgtz-99-ovbpteigo- kei-ecyqvekotdpsmg-cxwzbca-devices/dnthd-ptxdiplhtkp-ynvs SARS-CoV-2 Source [employer] Swab [facility] Specimen (Source) Anatomical Collection Method Collection Time Re ceived Time Location / / Volume Laterality Nasopharyngeal Swab 01/06/2022 11:10 05/11/2021 PM EDT 12:44 AM EDT Comment: Symptoms->Surveillance Resulting Agency Comment Spec In Lab Moisés Mcgill MD MICROBIOLOGY - GENERAL ORDER BRINA Performing Organization Address City/State/[place] [address] MRSA PCR (01/06/2022 11:10 PM EDT) [facility] Method Time Signature MRSA Result Negative Negative [facility] MRSA Interp Negative for methicillin-resistant Staphylococcus aureus (MRSA) [facility] This test was performed using the GeneXpert?? Dx System an d the Xpert MRSA MEMORIAL Assay. The MRSA target DNA was not detec charlie. The sample processing control and HOSPITAL probe check were valid. The performance of this test was determined by the [facility] Molecular Pathology Laboratory. It has been romelia red by the U.S. Food and Drug Administration for clinical use. Comment: [VERIFIED DATE]01.07.22 Verified By:Lissett Vega (Electronic Signature) Specimen (Source) Anatomical Collection Method Collection Time Re ceived Time Location / / Volume Laterality Nasopharyngeal Swab 01/06/2022 11:10 0511/2021 PM EDT 12:34 PM EDT Resulting Agency Comment Spec In Lab Moisés Mcgill MD MICROBIOLOGY - GENERAL ORDER BRINA Performing Organization Address City/[facility]/[place] [address] Film Library- Storage Only DX Chest (01/04/2022 12:00 AM EDT) Specimen (Source) Anatomical Location Collection Method / Collectio n Time Received Time / Laterality Volume Narrative [facility] - 01/05/2022 8:22 PM EDT This exam is auto-finalizing. It's purpo se is for storage only. Beatriz DE LA [facility]ENTE IM FILM LIBRARY ORDERABLES Performing Organization Address City/[facility]/ZIP Code Phon e Number [place], [place] Film Library- Storage Only CT Head (12/29/2021 12:05 AM EDT) Specimen (Source) Anatomical Location Collection Method / Collectio n Time Received Time / Laterality Volume Narrative [facility] - 01/05/2022 8:23 PM EDT This exam is auto-finalizing. It's purpo se is for storage only. Beatriz DE LA [facility]UENTE IMG FILM LIBRARY ORDERABLES Performing Organization Address City/[facility]/ZIP Code Phon e Number [place], [place] Film Library- Storage Only CT Chest Abdomen Pelvis (12/29/2021 12:00 AM EDT) Specimen (Source) Anatomical Location Collection Method / Collectio n Time Received Time / Laterality Volume Narrative RAD - 01/05/2022 8:23 PM EDT This exam is auto-finalizing. It's purpo se is for storage only. Beatriz DE LA FUENTE IMG FILM LIBRARY ORDERABLES Performing Organization Address City/[facility]/ZIP [facility] Phon e Number [place], [place] Immunophenotyping Flow Cytometry (12/23/2021 3:40 PM EDT) Component Value Ref Test Analysis Performed At [facility] Range Method Time Signature Immunophenotyping See [facility] Flow Comment [facility] [facility]3] LABORATORY Comment: When completed by the Pathologist, the F low Cytometry Report ([id number]) will display under the Pathology Result s section within eDH. Specimen Anatomical Collection Method Collection Time Receive d Time (Source) Location / / Volume Laterality Bone Marrow 12/23/2021 3:40 PM 4:09 EDT PM EDT Resulting Agency Comment Spec In Lab Dilshad Osullivan MD HEMATOLOGY ORDERABLES Performing Organization Address City/State/[place] [address] [facility] [address] Bone Marrow Final Report (12/23/2021 3:40 PM EDT) Component Value Ref Test Analysis Performed At [facility] Range Method Time Signature Bone Marrow [id number] ? Location: [facility] Final Report ATHENS The signing pathologist has (i) examined the relevant preparation(s) for the [facility] specimen(s) and (ii) rendered or confirmed the diagnosis(es) . HOSPITAL LABORATORY . ? Bone Marrow Final DIAGNOSIS BONE MARROW (BLOOD FILM, ASPIRATE SMEAR, TOUCH PREP, CORE & CLOT SECTIONS): ?? 1. ??Normocellular marro w (40%) showing complete multilineage ?? hematopoiesis ?? 2. ??Iron stain shows presence of storage iron ?? 3. ??Peripheral smear wi th moderate macrocytic anemia and ?? thrombocytopenia Electronically signed by: ?Lety Coyne MD Verified: ??12/25/2021 14:47 ??Hematopathologist Performed at: ??-[facility] [place], [place], [place] DISCUSSION No abnormal increase in samm ts is microscopically identified, supported by flow cytometry. Recent chimerism studies on unfractionated blood showed >95% donor engraftment (# [id number], 12/17/2021). Quantitative PCR-based MRD evaluation for NPM1 mutation have been sent-out, and results will be separately reported. PERIPHERAL SMEAR WBC 8.3K/uL, RBC 2.9M/uL, HGB 9.8g/dL, MCV 99.7fL, RDW 19.6% , PLT 58K/uL There is a moderate normochr omic borderline-macrocytic anemia. Anisopoikilocytosis is increased, and oval macr ocytes and few teardrop cells are seen. Polychromasia is not significantly increased . The total leukocyte count is normal. There is a mild neutrophilia (6.4 ??K/uL), but other leukocyte-subset counts are within reference limits. The neutrophils are mostly matu re and without significant left-shift. Remaining leukocyte morphology is gener ally unremarkable. There is a moderate thrombocytopenia, but platelet morphology is unremarkable. BONE MARROW ASPIRATE Adequacy: ?Smear/touch preparations adequate, cellula r. G:E ratio: ? 1.9:1 Erythroid: ? Complete normoblastic maturation, no left-s hift. Granulocyte: ?? Complete normal maturation, no left-shift. Megakaryocyte: Normal in number and morphology. Lymphocyte: ?Scattered mature forms seen, no aggregates appreciated. Other: ? Normal pl asma cells, eosinophils, basophils, and mast cells. Iron stain: ?Pauciparticulate, storage iron seen, no r ing sideroblasts. DIFFERENTIAL Band/Seg 22.0%; Lymph 13.5%; Bath 2.0%; Eos 3.5%; Baso 0%; Metamyelocyte 14.5%; Myelocyte 10.5%; Promyelocyte 2.5%; Misha st 1.0%; nRBC's 29.0%; Plasma cell 1.5% BONE MARROW BIOPSY and/or CLOT Core Adequacy: Decalcified, adequate, evaluable marrow prese nt. Cellularity: ?? Normocellular (40%), some hemorrhage distort ion. Erythroid: ? Precursors numerically normal. Granulocyte: ?? Precursors numerically normal. Megakaryocyte: Normal in number and appearance, no clusterin g seen. Lymphocytes: ?? No abnormal aggregates identified. Other: ? Normal pl asma cells, eosinophils, basophils, and mast cells. Bone: ?Trabecular bone normal for age. . CLINICAL INFORMATION Specimen: ? Bone marrow, aspirate and bio psy, left Clinical Diagnosis: ? 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 Evaluate marrow day +62 s/p allo-HS CT SPECIMEN PROCESSING A - Labeled/Fixative: L Hip, formalin. Quantity/Size: Single, 1.5 x x 0.2 cm. Tissue Description: Core of pink-red bone. Also received is a separate clot sample which is fixed and filtered, but fails to yield tissue for processing. No block is submitted. Tissue submitted for decalcification in cassette: A1. Sections/Processing: Entirely submitted in 1 cassette labeled A1. ??pps ?Dru w Cytometry DIAGNOSIS BONE MARROW - FLOW CYTOMETRY: No increased or immunophenot ypically abnormal blast population is observed (see comment) COMMENT: Please refer to the primary biopsy report for morphologic co rrelation. Electronically signed by: ?Lety Coyne MD Verified: ??12/24/2021 13:59 ??Hematopathologist Performed at: ??-[facility] [place]. [place], [place], [place] DISCUSSION The WF56-yss low-SSC flow sc atterplot region represents ~1% of the total events. This gate contains a few granulo cyte precursors, but shows no increased or phenotypically abnormal blast population. Flow analysis is an ancillar y study. A definite diagnosis requires correlation with the morphologic features of this process and if necessary, correlation with other ancillary studies like immu nohistochemistry, enzyme cytochemistry and/or cyto/ molecular genetics. This test was developed and its performance veronica acteristics determined by the Clinical Flow Cytometry Lab oratory at [facility]. It has not been cleared or approve d by the U.S. Food and Drug Administration. ??The FDA has determined that such cleara nce or approval is not necessary. ??This test is used for clinical purposes. ??It jose armando uld not be regarded as investigational or for research. This laboratory is certifie d under the Clinical Laboratory Improvement Act of 1988 (CLIA) as qualified to perform high complexity [facility] al laboratory testing. SPECIMEN PROCESSING [id number] Cells for immunophenotypic a nalysis were derived from bone marrow. CD45 vs side scatter gating was utilized to identify a blast analysis region that comprises approximately 1% of all cells. The following markers were a ssessed: CD3, CD13, CD14, CD19, CD34, CD45, CD56, CD117, and HLA-DR. CLINICAL INFORMATION A 61 year old man with histo ry of NPM1(+)/FLT3-ITD(+) AML, now day +62 s/p allo-HSCT. A bone marrow biopsy was procured for evaluation. Specimen (Source) Anatomical Collection Method Collection Time Re ceived Time Location / / Volume Laterality 12/23/2021 3:40 PM EDT Dilshad Osullivan MD PATHOLOGY/CYTOLOGY ORDERABLE S Performing Organization Address City/State/[place] [address] [facility] Test[facility] (12/23/2021 3:40 PM EDT) [facility] gist Method Time Signature [facility] JIA Test ?Result ? Flag ??Unit ??RefValue [facility] NPM1 Mutation Analysis, V HOSP ITAL ??Specimen Type ? Bone [facility] LABORATORY ??Interpretation ?SEE COM MENTS ?Bone marrow, NPM1 gene Mutation analysis: ?Positive for NPM1 mutation. The quantitative level of ?mutated NPM1 transcript is 2/10,000 ABL1 copies (0.02% .) ?See comments. ?Comments: NPM1 mutation is seen in approximately 30% o f ?acute myeloid leukemia (AML) patients. It is prevalent in ?normal karyotype AML and frequently associated with FL T3 ?gene mutations. AML patients carrying the NPM1 mutatio n in ?the absence of FLT3-ITD have been shown to have better ?overall and disease free survival, and lower cumulativ e ?incidence of relapse (Idania et al, 2006, [id number]; Millie lester ?et al, 2005, [id number]; Lary et al, 2005; [id number]). ?In NPM1-mutated AML patients, persistence of NPM1-muta charlie ?transcript, particularly at higher levels (>100-200/10 ,000 ?ABL1 copies) after at least two cycles of cytotoxic ?chemotherapy is associated with increased risk of rela pse ?and lower rate of survival (Kronke et al, 2011, [phone] [phone]; ?Octavio et al, 2013, [id number]; Saida et al, 2016, ?[id number]). Trends in the level of NPM1-mutated transcr ipt ?should be followed carefully. An increase of NPM1-muta charlie ?transcript level greater than or equal to 1 log10 betw een ?two positive samples is consistent with molecular ?relapse/molecular progression (Marquis et al, 2018, ?[id number]). The reproducibility of this assay is such t hat ?results within 0.5 log10 should be considered equivale nt. ?As mutated NPM1 is generally overexpressed at the mRNA ?transcript level, the quantitative percentage value is ?commonly higher than that assessed by blast morphology , ?flow cytometry-based minimal residual disease detectio n, or ?the variant allele fraction from a DNA-based molecular ?assay. The quantitative test part does not reliably ?quantify other rare non-A, B, D NPM1 mutation types. P lease ?correlate historical NPM1 test results including the N PM1 ?mutation type identified at time of AML diagnosis, as well ?as clinical and other laboratory findings. ? ADDITIONAL INFORMATION ------ ?The assay is composed of two parts, a sensitive ?quantitative assay and a qualitative NPM1 exon 12 muta tion ?screen. The quantitative assay is a RNA-based reverse ?digital asset manager real-time polymerase chain reaction (RT- PCR) ?which detects and quantifies the most common mutant WET PRIMER POWDER BLENDER M1 ?transcripts (A, B, D forms) which account for approxim ately ?90% of NPM1 mutations in acute myeloid leukemia (AML). The ?qualitative NPM1 exon 12 mutation screen is a DNA-base d ?fragment analysis assay that detects essentially all f orms ?reported in AML, including the rare non-A, B, D forms and ?has a lower sensitivity at the DNA level. For the ?quantitative test, extracted RNA is reverse transcribe d ?into cDNA and quantitative PCR is then performed. The ?quantitative value of NPM1 transcript copy number is ?determined relative to ABL1 as the reference transcrip t. ?The analytic sensitivity of this quantitative assay is ?approximately 1/10,000 (mutated NPM1/ABL1 transcript ?copies, 0.01%). The quantitative test does not reliabl y ?detect or quantify other rarer non-A, B, D NPM1 mutati on ?types. The qualitative PCR assay is performed on extra cted ?DNA using primers that amplify a fragment of NPM1 DNA ?containing the region susceptible to insertion mutatio n and ?detects essentially all types of NPM1 mutations ?(insertions/deletions) described in AML. The amplified ?fragments are size by capillary electrophore sis. ?The analytical sensitivity of the qualitative test is ?approximately 5% (mutated/wild-type NPM1 DNA). ?This test was developed and its performance characteri stics ?determined by [facility] in a manner consistent with CLIA ?requirements. This test has not been cleared or approv ed by ?the U.S. Food and Drug Administration. ??Signing Pathologist ?Yolette Velazquez M.D. ?Test Performed by: ?[facility] ?[address] [place] [address] ?Blackjack Supervisor: Randal Aparicio M.D. Ph.D.; CLIA# [id number] Specimen Anatomical Collection Method Collection Time Receive d Time (Source) Location / / Volume Laterality Other Other / Unknown 12/23/2021 3:40 PM 2021 3:47 EDT PM EDT Narrative This result has an attachment that is no t available. Resulting Agency Comment Spec In Lab Lety Coyne MD CHEMISTRY ORDERABLES Performing Organization Address City/[facility]/ZIP Code Phon e Number [address] Iron Stain, Bone Marrow (12/23/2021 3:40 PM EDT) [facility] Method [place] Signature Iron Stain BM See Comment [facility] LABORATORY Comment: See Bone Marrow Report [id number] under Hematopathology Reports. Specimen Anatomical Collection Method Collection Time Receive d Time (Source) Location / / Volume Laterality Bone Marrow 12/23/2021 3:40 PM 4:09 EDT PM EDT Resulting Agency Comment Spec In Lab Dilshad Osullivan MD HEMATOLOGY ORDERABLES Performing Organization Address City/[facility]/ZIP Code Phon e Number [address] CHIMERISM BLOOD REPORT (12/17/2021 4:30 AM EDT)Only the most recent of2 results within the time period is included. 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 A ssess engraftment status. ANALYSIS: Examination of peripheral blood DNA for asse ssment of engraftment. SAMPLES: 1. 12/17/2021 - peripheral blood, unfractionated RESULTS: The DNA tested was found to contain: 1. Peripheral blood, unfractionated: greater than 95% donor DNA INTERPRETATION: These results indicate complete donor chimer ism. This analysis is based on 15 informative STR loci. METHODS: Multiplex PCR was performed on each of the samples with fluorescently labeled primer sets directed at sixteen (16) of the followin g STR loci: Amelogenin, CSF1PO, I46X064, N30V197, D18S51, P75N591, D21S1 1, E4E6284, N0V3220, V7E695, Q3R903, O7I3541, FGA, TH01, TPOX, vWA. PCR products were by capillary electrophoresis and detected by laser excitation. Engraftment for each sample was calculated using a rat io of the peak area of the donor specific products to the peak area of donor plus recipient products. Control mixtures of recipient DNA in donor DNA were made to evaluate sensitivity. If requested, peripheral blood lymphocytes were fractionated using a Ficoll/Hypaque gradient prio r to analysis as indicated above. Flow cytometry is used to determine the purity of each fra ction or sales and service representative fractions when using a new lot of Ficoll reagent. The purity of fract ionated samples may be variable, especially those with low white blood cell counts in the peripheral blood. Results should be interpreted accordingly. LIMITATIONS AND DISCLAIMERS: Although unlikely, rare variant s or (known or unknown) have the potential to interfere with the performa nce of this test, producing inaccurate results. When results are not consisten t with other clinical observations or elder t results, additional testing should be considered. This test was developed and its performance veronica acteristics determined by the Clinical [facility] [employer] ([employer]) Laboratory at [facility]. It has not been cleared or approved by the FDA. The laboratory is regulated under CLIA as qualified to perform high-complexity testing. This elder t is used for clinical purposes. It should not be regarded as investigational or fo r research. Specimen Anatomical Collection Method Collection Time Receive d Time (Source) Location / / Volume Laterality 12/17/2021 4:30 AM 2 7:44 EDT AM EDT Deng Yost MD HEMATOLOGY ORDERABLES Performing Organization Address City/[facility]/ZIP Code Phon e Number [address] .Chimerism Blood (12/17/2021 4:30 AM EDT)Only the most recent of2 resultswithin the time period is included. Analysis Performed At Patho logist Time Signature Chimerism Complete [facility] LABORATORY Specimen Anatomical Collection Method Collection Time Receive d Time (Source) Location / / Volume Laterality Blood 12/17/2021 4:30 AM 2 7:44 EDT AM EDT Resulting Agency Comment Spec In Lab Deng Yost MD HEMATOLOGY ORDERABLES Performing Organization Address City/[facility]/[place] [address] SCAN DOC: TELEMETRY STRIPS (12/15/2021 4:51 AM EDT)Only the most recent of11 resultswithin the time period is included. Narrative This result has an attachment that is no t available. Unknown MEDIA MGR SCAN EXT ORDR/RSLT XR Chest One View (12/13/2021 8:13 PM EDT) Anatomical Region Laterality Modality Chest N/A Digital Radiography Specimen (Source) Anatomical Location Collection Method / Collectio n Time Received Time / Laterality Volume Impressions 12/14/2021 7:56 AM EDT Subsegmental atelectasis at left base, with or without trace effusion. Thank you for letting us participate in the care of this patient. ??If you are a health care provider and have any questi ons regarding this report, please contact the number below. ??For patients who have questions please contact the health family day care provider that requested your imaging first. ? Electronically signed by: Krista Olivia MD, [facility] ([phone]), at 12/14/2021 7:56 AM Narrative 12/14/2021 7:56 AM EDT EXAMINATION: XR CHEST ONE VIEW CLINICAL HISTORY: Part of infection work up TECHNIQUE: Portable AP chest radiograph on ??12/13/2021 at 2008 hours. COMPARISON: 11/04/2021. FINDINGS: Right-sided MediPort central v enous access catheter tip in unchanged position. Subsegmental atelectasis at th e left lung base, with or without trace effusion. Otherwise, the lungs appear cl ear. Cardiomediastinal silhouette, daina, and pulmonary vessel markings are within normal limits. No pneumothorax seen. Procedure Note Krista Olivia MD - 12/14/2021Formatt ing of this note might be different from the original. EXAMINATION: XR CHEST ONE VIEW CLINICAL HISTORY: Part of infection work up TECHNIQUE: Portable AP chest radiograph on 12/13/2021 at 2008 hours. COMPARISON: 11/04/2021. FINDINGS: Right-sided MediPort central v enous access catheter tip in unchanged position. Subsegmental atelectasis at th e left lung base, with or without trace effusion. Otherwise, the lungs appear cl ear. Cardiomediastinal silhouette, daina, and pulmonary vessel markings are within normal limits. No pneumothorax seen. IMPRESSION Subsegmental atelectasis at left base, w ith or without trace effusion. Thank you for letting us participate in the care of this patient. If you are a health care provider and have any questi ons regarding this report, please contact the number below. For patients w ho have questions please contact the health family day care provider that requested your imaging first. Electronically signed by: Krista Olivia MD, [facility] ([phone]), at 12/14/2021 7:56 AM Urban Dos Santos MD IMG DX ORDERABLES Respiratory Panel PCR (12/13/2021 6:00 PM EDT) Analysis Performed At Patho logist Time Signature Resp Panel WET PRIMER POWDER BLENDER Swab [facility] LABORATORY Resp Panel PCR Negative Negative [facility] LABORATORY Comment: Respiratory Panels are performed on the [employer], using multiplexed PCR nucleic acid detection. ??Negative resul ts do not preclude respiratory infection and should not be used as the sole basis for diagnosis, treatment or other management decisions. Adenovirus Not Detected Not Detected [facility] LABORATORY Coronavirus HKU1 Not Detected Not Detected [facility] Coronavirus NL63 Not Detected Not Detected [facility] Coronavirus 229E Not Detected Not Detected [facility] Coronavirus OC43 Not Detected Not Detected [facility] SARS-CoV-[address] Not Detected [facility] LABOR[facility] Comment: Testing for SARS-CoV-2 (Severe acute res piratory syndrome coronavirus 2) to aid in the diagnosis of COVID-19 is performe d using the BioFire Respiratory Panel 2.1 (ZIPDIGS) as authorized by the FD A issued Emergency Use Authorization (EUA). This panel also tests for multipl e other viral and bacterial pathogens. This assay is intended for In-vitro Diag nostic (IVD) use with nasopharyngeal swabs in viral transport media. The assa y is performed based on the instructions for use and additional guid ance provided by the FDA. Testing is performed in laboratories within the [facility], each of which is certified under the Clinical La boratory Improvement Amendments of 1988 (CLIA), 42 U.S.C. section 263a, to perfo rm high-complexity tests. Assay performance has been verified according to clinical laboratory regulatory requirements. The test result for SARS-CoV-2 provided above should be interpreted in combination with the clinical observatio n, patient history and epidemiological information. For testing of asymptomatic individuals, assay performance characteristics and clinical utility hav e not been evaluated. ??A result of Not Detected indicates that the viral RNA t arget is not present but does not preclude SARS-CoV-2 infection. False neg ative results may occur if a specimen is improperly collected, transported or handled; if amplification inhibitors are present; or if inadequate numbers of viral particles are present in the specimen. When a diagnostic test is nega tive, the possibility of a false negative result should be considered in the context of a patient's recent exposures and the presence of clinical s igns and symptoms consistent with COVID-19. A result of Detected suggest s a current or recent infection. Positive and negative predictive values for this test are dependent on disease prevalence. A result of Invalid indica elder the inability to conclusively determine the presence or absence of DEBORAH S-CoV-2 RNA in the sample which can be due to a variety of factors. ??Collectio n of a new sample for repeat testing is recommended in the case of an invalid re sult. [facility] COVID-19 criteria for testing on hum an specimens and clinical management guidance information are available at [facility] Coronavirus Disease 2019 (COVID-19) webpage under Information fo r Healthcare Professionals (https://www.cdc.gov/coronavirus/2019-nc ov/hcp/index.html). Additional information about this and ot her EUA tests can be found in provider and patient fact sheets at the following FDA website: https://www.fda.gov/medical-devices/lfivydjwayj-vprkwfl-4551-makoc-95-ctlviximt- qgu-hphhvsjwkvhktb-gkrajwj-devices/znvyw-tbzariijkus-nfbc Human Metapneumovirus Not Detected Not Detected [facility] LABORATORY Human Rhino/Enterovirus Not Detected Not Detected [facility] LABORAT[facility] Influenza A Not Detected Not Detected [facility] Influenza A H1 Not Detected Not Detected [facility] Influenza B Not Detected Not Detected [facility] Parainfluenza 1 Not Detected Not Detected [facility] LAB[facility] Parainfluenza 2 Not Detected Not Detected [facility] Parainfluenza 3 Not Detected Not Detected [facility] Parainfluenza 4 Not Detected Not Detected [facility] Respiratory Syncytial Virus Not Detected Not Detected [facility] LABORATORY Chlamydophila pneumoniae Not Detected Not Detected [facility] LABORATORY Mycoplasma pneumoniae Not Detected Not Detected [facility] LABORATORY Specimen (Source) Anatomical Collection Method Collection Time Re ceived Time Location / / Volume Laterality Nasopharyngeal Swab 12/13/2021 6:00 12/13 PM EDT 6:51 PM EDT Resulting Agency Comment Spec In Lab Dilshad Osullivan MD MICROBIOLOGY - GENERAL ORDER BRINA Performing Organization Address City/[facility]/ZIP Code Phon e Number [address] Lactate Dehydrogenase (12/13/2021 6:00 PM EDT)Only the most recent of3 results within the time period is included. athologist Signature [facility] [phone] [facility] unit/[facility] LABORATORY Specimen Anatomical Collection Method Collection Time Receive d Time (Source) Location / / Volume Laterality Blood 12/13/2021 6:00 PM 6:18 EDT PM EDT Resulting Agency Comment Spec In Lab Dilshad Osullivan MD CHEMISTRY ORDERABLES Performing Organization Address City/[facility]/ZIP Code Phon e Number [address] SCAN DOC: LAB (12/13/2021 12:00 AM EDT)Only the most recent of3 resultswithin the time period is included. Narrative This result has an attachment that is no t available. Unknown MEDIA MGR SCAN EXT ORDR/RSLT (ABNORMAL) CBC (with Diff) (11/29/2021) Analysis Performed At Patho logist Time Signature WBC 7.68 4.4 - 10.8 Hemoglobin 7.6 (A) 13.5 - 17.5 Hematocrit 22.5 (A) 40.0 - 50.0 Platelets 50 (A) 130 - 400 Neutr Abs (ANC) 4.7 1.2 - 6.7 Specimen (Source) Anatomical Location Collection Method / Collectio n Time Received Time / Laterality Volume Blood 11/29/2021 Darrell Provider HEMATOLOGY ORDERABLES Transfuse RBC (11/18/2021 12:31 PM EDT) Dilshad Osullivan MD NURSING TREATMENT ORDERABLES - BLOOD ADMIN Prepare RBC (11/18/2021 9:00 AM EDT) athologist Signature Dispensed? Yes [facility] Specimen Anatomical Collection Method Collection Time Receive d Time (Source) Location / / Volume Laterality Blood 11/18/2021 9:00 AM 8:56 EDT AM EDT Dilshad Osullivan MD BLOOD BANK ORDERABLES Performing Organization Address City/State/[place] [address] (ABNORMAL) Differential, Manual (11/18/2021 4:00 AM EDT)Only the most recent of4 resultswithin the time period is included. [facility] Method Time Signature Neutrophil % 67 % [facility] Lymphocyte % 10 % [facility] Monocyte % 18 % [facility] Basophil % 2 % [facility] Metamyelo % 1 % [facility] Myelocyte % 1 % [facility] Promyelocyte % 1 % [facility] Neutrophil Abs 4.6 1.7 - 6.1 [facility] x10(3)/[facility] Neutr Abs (ANC) 4.64 1.70 - [facility] 6.10 [facility] x10(3)[facility] [place] [facility] LABORATORY Lymphocyte Abs 0.7 (L) 0.9 - 3.2 [facility] x10(3)/[facility] Monocyte Abs 1.2 (H) 0.3 - 0.9 [facility] x10(3)[facility] Basophil Abs 0.1 0.0 - 0.1 [facility] x10(3)[facility] LABORATORY Metamyelo Abs 0.1 (H) 0.0 - 0.0 [facility] x10(3)[facility] LABORATORY Myelocyte Abs 0.1 (H) 0.0 - 0.0 [facility] x10(3)[facility] LABORATORY Promyelo Abs 0.1 (H) 0.0 - 0.0 [facility] x10(3)[facility]ATORY Tot Diff Cell Ct [address] [facility] Plat Estimate Decreased [facility] RBC Morphology Normal [facility] Toxic Present [facility] Specimen Anatomical Collection Method Collection Time Receive d Time (Source) Location / / Volume Laterality Blood 11/18/2021 4:00 AM 2 4:15 EDT AM EDT Resulting Agency Comment Spec In Lab Dilshad Osullivan MD HEMATOLOGY ORDERABLES Performing Organization Address City/[facility]/ZIP [facility] [place] [address] Urea nitrogen, urine, random (11/17/2021 8:57 AM EDT) P athologist Signature U Urea 1,033 mg/dL [facility] Specimen Anatomical Collection Method Collection Time Receive d Time (Source) Location / / Volume Laterality Urine 11/17/2021 8:57 AM 2 9:03 EDT AM EDT Resulting Agency Comment Spec In Lab Angelica Goodrich Jr., MD URINE ORDERABLES Performing Organization Address [facility] [place] [address] Sodium, urine, random (11/17/2021 8:57 AM EDT) P athologist Signature U Sodium 48 mmol/L [facility] Specimen Anatomical Collection Method Collection Time Receive d Time (Source) Location / / Volume Laterality Urine 11/17/2021 8:57 AM 2 9:03 EDT AM EDT Resulting Agency Comment Spec In Lab Angelica Goodrich Jr., MD URINE ORDERABLES Performing Organization Address City/[facility]/[place] [address] Creatinine, urine, random (11/17/2021 8:57 AM EDT) P athologist Signature U Creatinine 130 mg/dL [facility] Specimen Anatomical Collection Method Collection Time Receive d Time (Source) Location / / Volume Laterality Urine 11/17/2021 8:57 AM 2 9:03 EDT AM EDT Resulting Agency Comment Spec In Lab Angelica Goodrich Jr., MD URINE ORDERABLES Performing Organization Address City/[facility]/ZIP Code Phon e Number [facility] [place] [address] from Last 3 Months Additional Health Concerns Infection Onset Date Last Indicated History of C. difficileComment: C. diffiicile testing 202108/20/2021 positive 05/25/21. Insurance Payer Benefit Plan / Subscriber ID Effective Dates Phone Addre ss Type Group [place] [id number] 2022-Presen [phone] [address] [facility] [address] [place], [place] [phone] Advance Directives Documents on File Type Date Recorded Patient Energy Conservation Technician Explanati on Advance Directives and Living 08/13/2021 7:48 AM Will Latest Code Status on File Code Status Date Activated Date Inactivated Comments Attempt Cardiopulmonary Resuscitation - 01/06/2022 10:56 PM 2021 4:48 PM Inpatient Code Status decision made by: Verified POLST Attempt Cardiopulmonary Resuscitation - 12/13/2021 5:13 PM 12/18/19 5:35 PM Inpatient Code Status decision made by: Patient Attempt Cardiopulmonary Resuscitation - 12/13/2021 11:49 AM 2021 4:42 PM Inpatient Code Status decision made by: Patient Attempt Cardiopulmonary Resuscitation - Inpatient 10/15/2021 4 :04 PM 11/18/2021 4:28 PM Code Status decision made by: Patient Attempt Cardiopulmonary Resuscitation - Inpatient 10/15/2021 4 :04 PM 10/15/2021 4:04 PM Code Status decision made by: Patient Care Teams Inseam Leveler Relationship Specialty Start Date End Date Beatriz Maurice PA PCP - General Family Medicine 05/06/21 [address] [place] [address]
--- OUTSIDE RECORDS SUMMARY | 2022-02-14 11:06 | XMS_ITS | Encounter Summary ---
:1960 Author Organization [facility] [place] [facility] Address [place] [address] Care Team Providers Name Role Phone Beatriz Maurice Primary Care Provider Encounter Details Date Type Department Care Team Description 02/06/2022 Orders Only Hematology and Oncology Parviz Modi MD at [facility] Catie narvaez HEMATOLOGY/[place] [address] [place] [address] [phone] (Wo rk) Social History Tobacco Use Types Packs/Day Years [...] as of this encounter Plan of Treatment Upcoming Encounters Date Type Specialty Care Team Description 02/18/2022 Infusion Hematology and Oncology 02/21/2022 Infusion Hematology and Oncology 02/24/2022 Appointment Hematology and Oncology 02/24/2022 Office Visit Hematology and Oncology Parviz Modi MD [facility] DR HEMATOLOGY/[place] [address] Miroslava Pelayo APRN [facility] HEMATOLOGY/[place] [address] 02/24/2022 Office Visit Wound Care 02/24/2022 Appointment Hematology and Oncology 02/26/2022 Office Visit Neurology Leni Bustamante MD [facility] NEUROLOGY DEPT. [place], [place] [address] (Wo rk) documented as of this encounter Visit Diagnoses Not on filedocumented in this encounter Additional Health Concerns Infection Onset Date Last Indicated Resolved Time History of C. difficileComment: C. diffiicile 08/20/2021 testing positive 05/25/21. documented as of this encounter Care Teams Retail Sales Assistant Relationship Specialty Start Date End Date Beatriz Maurice PA PCP - General Family Medicine 05/06/21 [address] [place] [address] documented as of this encounter
--- OUTSIDE RECORDS SUMMARY | 2022-02-14 11:06 | XMS_ITS | Encounter Summary ---
:1960 Author Organization [facility] [place] [address] Care Team Providers Name Role Phone Beatriz Maurice Primary Care Provider Encounter Details Date Type Department Care Team Description 02/03/2022 Telephone Hematology and Oncology at Jessi Garza sa, [place] [address] Social History Tobacco Use Types Packs/Day Years [...] on file documented as of this encounter Miscellaneous Notes Telephone Encounter - Angélica Garza RN - 02/03/2022 10:07 AM EDT RN received call at 1007 from [facility] with [facility] Lab reporting critical result(s) on patient: POTASSIUM: [address] Modi and Anahi Witners RN of above results at 1010. Pat was seen in clinic today and is scheduled for infusion time. documented in this encounter Plan of Treatment Upcoming Encounters Date Type Specialty Care Team Description 02/18/2022 Infusion Hematology and Oncology 02/21/2022 Infusion Hematology and Oncology 02/24/2022 Appointment Hematology and Oncology 02/24/2022 Office Visit Hematology and Oncology Parviz Modi MD [facility] DR HEMATOLOGY/[place] [address] Miroslava Pelayo APRN [facility] DR HEMATOLOGY/[place] [address] 02/24/2022 Office Visit Wound Care 02/24/2022 Appointment Hematology and Oncology 02/26/2022 Office Visit Neurology Leni Bustamante MD [facility] DR NEUROLOGY DEPT. [place], [place] [address] (Wo rk) documented as of this encounter Visit Diagnoses Not on filedocumented in this encounter Additional Health Concerns Infection Onset Date Last Indicated Resolved Time History of C. difficileComment: C. diffiicile 08/20/2021 testing positive 05/25/21. documented as of this encounter Care Teams Nuclear Radiologist Relationship Specialty Start Date End Date Beatriz Maurice PA PCP - General Family Medicine 05/06/21 [address] [place] [address] documented as of this encounter
--- OUTSIDE RECORDS SUMMARY | 2022-02-14 11:06 | XMS_ITS | Encounter Summary ---
:1960 Author Organization [facility] [place] [address] Care Team Providers Name Role Phone Beatriz Maurice Primary Care Provider Reason for Visit Reason Comments Follow-up Attention to ileostomy. Encounter Details Date Type Department Care Team Description 01/27/2022 Office Visit Wound Care at [facility] Attention to ileostomy [facility] [place] [address] Social History Tobacco Use Types Packs/Day [...] on file documented as of this encounter Progress Notes Reyna Teague RN - 01/27/2022 9:00 AM EDT Clinic Ostomy Progress Note 05/28/21??Procedure(s) (LRB): @ILEOSTOMY OR JEJUNOSTOMY, NON TUBE (WRVU 17.59) (N/A) @EXPLORATORY LAPAROTOMY, REOPENING OF RECENT (WRVU 17.63) (N/A)?? Admitted from 10/15/21-11/18/21 for a MUD allo HSCT. Admitted on 01/06/22??as a transfer from OSH for??worsening lethargy in the setting of presumed pneumonia being treated with cefapime.??Discharged 01/12/22 ?? 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 Surgeon:??Dr. Colby Walter ?? Pouching System: Removed #11785 with convex ring #[id number], elastic barrier strips, and belt. Replaced with the same Stoma Appearance: Red, moist, oval, protrudes slightly. Peristomal Skin: Mild erythema directly around the stoma; applied stoma powder & skin prep. Ostomy Output: Thin liquid in the clinic this morning, but pt states that it normally thickens throughout the day. He states that taking 2 tablets of Imodium HS is thickening his stool, but he has beenemptying the pouch 3-4 times overnight. He does eat dinner around 8:30, so this may be one of the reasons he needs to empty overnight so often. He's also, understandably, paranoid about the pouch leaking, so states that he sometimes empties the pouch even though he might not need to. Today's visit, teaching and recommendations: Pt RTC for a f/u appointment with the grizzlyman; he is here today with his S.Cherise Paula. They state that his current pouch has been in place since Thursday; it was lifting up around the edges, but was nicely intact with very minimal undermining closest to thestoma. Chai states that the stoma varies in shape - sometimes oval, other times more round - so I cut the opening in the pouch to be round, almost the same size as the opening in the convex ring. I provided them with 4 more convex rings as they used the last one they had during the last pouch change.A prescription for the rings has been faxed to [facility]. They deny questions or concerns at this time, but I enc them to call if any arise. F/u: 1 month. documented in this encounter Plan of Treatment Upcoming Encounters Date Type Specialty Care Team Description 02/18/2022 Infusion Hematology and Oncology 02/21/2022 Infusion Hematology and Oncology 02/24/2022 Appointment Hematology and Oncology 02/24/2022 Office Visit Hematology and Oncology Parviz Modi MD [facility] DR HEMATOLOGY/[place] [address] Miroslava Pelayo APRN [facility] DR HEMATOLOGY/[place] [address] 02/24/2022 Office Visit Wound Care 02/24/2022 Appointment Hematology and Oncology 02/26/2022 Office Visit Neurology Leni Bustamante MD [facility] NEUROLOGY DEPT. [place], [place] [address] (Wo rk) documented as of this encounter Visit Diagnoses Diagnosis Attention to ileostomy documented in this encounter Additional Health Concerns Infection Onset Date Last Indicated Resolved Time History of C. difficileComment: C. diffiicile 08/20/2021 testing positive 05/25/21. documented as of this encounter Care Teams Animal Nursery Worker Relationship Specialty Start Date End Date Beatriz Maurice PA PCP - General Family Medicine 05/06/21 [address] [place] [address] documented as of this encounter
--- OUTSIDE RECORDS SUMMARY | 2022-02-14 11:06 | XMS_ITS | Encounter Summary ---
:1960 Author Organization [facility] [place] [address] Care Team Providers Name Role Phone Beatriz Maurice Primary Care Provider Encounter Details Date Type Department Care Team Description 02/04/2022 Telephone Hematology and Oncol ogy at [facility] Annika Geller, [place] [address] Social History Tobacco Use Types Packs/Day [...] this encounter Miscellaneous Notes Telephone Encounter - Annika Geller, RN - 02/04/2022 3:37 PM EDT TCT Nurse Navigator Note: O: Herber is a 61yo man s/p allogeneic sct for AML (Day 0=10/22/21). His tacrolimis level drawn yesterday was 12.6. I called his SO Morales(caregiver) today at the request of Dr. Modi with dose modifications. Pt is to decrease his morning dose from 1.0mg oral Tacrolimus to 0.5mg and his evening dose from 1.5mg to 1.0mg. Morales readback instructions. Dr. Modi would like him to go to [facility] this week for labs and [facility] for hydration. I called our [facility] and they will fit him in tomorrow - they will call Herber with times. A: Morales verbalized understanding of the plan P: dose adjustments to Tacrolimus [facility] tomorrow for labs and hydration Continue to provide supportive care as needed documented in this encounter Plan of Treatment Upcoming Encounters Date Type Specialty Care Team Description 02/18/2022 Infusion Hematology and Oncology 02/21/2022 Infusion Hematology and Oncology 02/24/2022 Appointment Hematology and Oncology 02/24/2022 Office Visit Hematology and Oncology Parviz Modi MD [facility] DR HEMATOLOGY/[place] [address] Miroslava Pelayo APRN [facility] HEMATOLOGY/[place] [address] 02/24/2022 Office Visit Wound Care 02/24/2022 Appointment Hematology and Oncology 02/26/2022 Office Visit Neurology Leni Bustamante MD [facility] NEUROLOGY DEPT. [place], [place] [address] (Wo rk) documented as of this encounter Visit Diagnoses Not on filedocumented in this encounter Additional Health Concerns Infection Onset Date Last Indicated Resolved Time History of C. difficileComment: C. diffiicile 08/20/2021 testing positive 05/25/21. documented as of this encounter Care Teams Investment Sales Assistant Relationship Specialty Start Date End Date Beatriz Maurice PA PCP - General Family Medicine 05/06/21 [address] [place] [address] documented as of this encounter
--- OUTSIDE RECORDS SUMMARY | 2022-02-14 11:06 | XMS_ITS | Encounter Summary ---
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 [place], [place] [phone] Fax: Referral ID Status Reason Start Date Expiration Visits Visits Date Requested Authorized [id number] Authorized Consult, 01/21/2022 07/20/2022 999 [id number] Test & Treat Encounter Details Date Type Department Care Team Description 01/21/2022 Orders Only Hematology and Hayley Palmer, S/P all ogeneic bone marrow transplant; Oncology at [facility] Acute myeloid leukemia in remission [facility] [place] [address] HEMATOLOGY-ONCOLOG [phone] Y DEPT[address] [place] [address] Social History Tobacco Use Types Packs/Day Years [...] Visit Hematology and Oncology Parviz Modi MD [facility] DR HEMATOLOGY/[place] [address] Miroslava Pelayo APRN [facility] DR HEMATOLOGY/[place] [address] 02/24/2022 Office Visit Wound Care 02/24/2022 Appointment Hematology and Oncology 02/26/2022 Office Visit Neurology Leni Bustamante MD [facility] DR NEUROLOGY DEPT. [place], [place] [address] (Wo rk) Scheduled Referrals Name Type Priority Associated Diagnoses Order S chedule Referral to Home Outpatient Referral STAT S/P allogeneic smooth ne Ordered: Health marrow transplan t 01/21/2022 Acute myeloid leukemia in remission documented as of this encounter Visit Diagnoses Diagnosis S/P allogeneic bone marrow transplant Bone marrow replaced by transplant Acute myeloid leukemia in remission documented in this encounter Additional Health Concerns Infection Onset Date Last Indicated Resolved Time History of C. difficileComment: C. diffiicile 08/20/2021 testing positive 05/25/21. documented as of this encounter Care Teams Flight Crew Ordnanceman Relationship Specialty Start Date End Date Rathburn, Jeniane L, PA PCP - General Family Medicine 05/06/21 [address] [place] [address] documented as of this encounter
--- OUTSIDE RECORDS SUMMARY | 2022-02-14 11:06 | XMS_ITS | Encounter Summary ---
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 [address] Referral ID Status Reason Start Date Expiration Date Visits V isits Requested Authorized [id number] Authorized 11/22/2021 11/22/2022 99 99 Encounter Details Date Type Department Care Team Description 01/27/2022 Hospital Encounter Hematology and Hypomag nesemia; [place] [facility] [place]ans[place]; [facility] Acute [place] [address] Social History Tobacco Use Types Packs/Day [...] on file documented as of this encounter Medications at Time of Discharge Medication Sig Dispensed Refills Start Date End Date Ostomy Supplies Dispense 2 boxes 20 each 01/27/2022 MiscIndications: (10/box) of Adapt Attention to Convex Ring #31090 per ileostomy month. Patient it to use one with each pouch change every other day. tacrolimus (Prograf) Take 2-3 capsules by 60 capsule 3 01/14 0.5 mg mouth 2 times daily. CapsuleIndications: Take 2 capsules (1mg) Acute myeloid in the morning. Take 3 leukemia in remission capsules (1.5mg) at night. predniSONE Take 3 tablets by 90 tablet 2 12/24/2021 (Deltasone) 10 mg mouth every morning. Tablet Take with food. Colostomy Belt Dispense 1 Sensura Flako 1 each 2 (Ostomy Belt Medium) Belt #[id number] per month. [facility] metoprolol tartrate Take 1 tablet by mouth 30 tablet 5 11/15 (Lopressor) 25 mg daily. Tablet ondansetron (Zofran) Take 1 tablet by mouth 20 tablet 1 8 mg Tablet every 8 hours as needed for Nausea. tamsulosin (Flomax) Take 1 capsule by 90 tablet 0 2 0.4 mg Capsule mouth daily. flecainide (TAMBOCOR) Take 1 tablet by mouth 60 tablet 3 50 mg Tablet 2 times daily. lidocaine-prilocaine Apply to mediport 30 g 0 10/04/19 22 (EMLA) Cream approximately 30 minutes prior to access. Ostomy Supplies [facility] Dispense 2 boxes ( 20 each 022 10/box) of Adapt Barrier rings #5507 per month. Ostomy Supplies Dispense 1 bottle of 28.3 g 5 08/20/2021 Powder Adapt stoma powder #7906 every other month. Ostomy Supplies [facility] Dispense 2 boxes 20 each 11 2 (10/box) of Sensura Flako Soft Convex One-piece Pouch #[id number] per month. Ostomy Supplies [facility] Dispense 2 boxes 40 each 2 (20/box) of Brava Elastic Barrier strips #[id number] per month. Ostomy Supplies [facility] Dispense 1 box 50 each 11 08/20/2021 (50/box) of a generic no-sting skin barrier wipe per month. fluconazole Take 1 tablet by mouth 0 12/18/2021 0 02/03/2022 (Diflucan) 200 mg daily. Tablet acyclovir (ZOVIRAX) Take 4 capsules by 240 capsule 3 022 02/03/2022 200 mg Capsule mouth 2 times daily. loperamide (Imodium Take 1 capsule by 90 tablet 1 2 02/03/2022 A-D) 2 mg Capsule mouth 3 times daily. vancomycin (Vancocin) Take 1 capsule by 60 capsule 5 022 02/03/2022 125 mg Capsule mouth 2 times daily. pantoprazole EC Take 1 tablet by mouth 90 tablet 3 11/17/19 22 02/03/2022 (Protonix) 40 mg daily. Tablet, Delayed Release (E.C.) rosuvastatin Take 1 tablet by mouth 90 tablet 3 11/15/2021 02/10/2022 (Crestor) 40 mg daily. Tablet aspirin 81 mg Tablet, Take 81 mg by mouth 30 tablet 3 11/1502/03/2022 Chewable daily. documented as of this encounter Progress Notes Emilia Harvey RN - 01/27/2022 10:04 AM EDT Patient Name: Herber Iverson Jr. Patient Age: 61 y.o. Birthdate: 1960 Admit date: 01/27/2022 Attending Physician: No att. providers found Herber Iverson Jr., 61 y.o. male with diagnosis of AML is here for infusion of hydration. Post infusion potassium sent to lab. S: Pt. offers no complaints at this time. Reviewed plan of care for infusion visit, patient verbalized understanding of plan as outlined. O: Orders independently verified for correct drug name, route and dosage per patient's height, weight and BSA by Emilia Harvey RN, RN and onsite pharmacist. Medications administered per protocol. See MAR for medication administration. REACTIONS (DESCRIPTION, TIME, INTERVENTION AND EFFECTIVENESS) none A: Pt. Tolerated treatment with out issue. Herber Butts Kishor Anne confirms that all questions and issues have been addressed. P: Return to clinic as scheduled. documented in this encounter Plan of Treatment Upcoming Encounters Date Type Specialty Care Team Description 02/18/2022 Infusion Hematology and Oncology 02/21/2022 Infusion Hematology and Oncology 02/24/2022 Appointment Hematology and Oncology 02/24/2022 Office Visit Hematology and Oncology Parviz Modi MD [facility] DR HEMATOLOGY/[place] [address] Miroslava Pelayo APRN [facility] DR HEMATOLOGY/[place] [address] 02/24/2022 Office Visit Wound Care 02/24/2022 Appointment Hematology and Oncology 02/26/2022 Office Visit Neurology Leni Bustamante MD [facility] DR NEUROLOGY DEPT. [place], [place] [address] (Wo rk) documented as of this encounter Procedures Procedure Name Priority Date/Time Associated Diagnosis Comme nts POTASSIUM Routine 01/27/2022 11:23 AM Results for this EDT procedure are i n the results section . documented in this encounter Results (ABNORMAL) Potassium (01/27/2022 11:23 AM EDT) athologist Signature Potassium 5.5 (H) 3.5 - 5.0 [facility]L [facility] Comment: Please note: ??Patients with WBC >100,00 0 may have falsely elevated Potassium levels. ??For accurate Potassium quantif ication in these patients send serum separator tube (gold top) for subsequent determinations. ??Contact the Clinical Chemistry Laboratory if there are any qu estions. 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 documented in this encounter Administered Medications Inactive Administered Medications - up to 3 most recent administrations Medication Order MAR Action Action Date Dose Rate Site heparin (pf) (porcine) (100 Given 01/27/2022 11:28 AM EDT 500 Un its units/mL) flush 5 mL syringe 500 Units 500 Units, Intravenous, ONCE PRN, Starting on Thu01/27/22 at 1007, Until Thu01/28/22 at 0439, Line Care, Routine sodium chloride 0.9% infusion New Bag 01/27/2022 10:22 AM EDT 999 mL/hr 999 mL/hr 999 mL/hr, Intravenous, CONTINUOUS, Starting on Thu01/27/22 at 1015, Until Thu01/28/22 at 0439, 1 liter over 1 hour. documented in this encounter Additional Health Concerns Infection Onset Date Last Indicated Resolved Time History of C. difficileComment: C. diffiicile 08/20/2021 testing positive 05/25/21. documented as of this encounter Care Teams Professor Of Literature Relationship Specialty Start Date End Date Beatriz Maurice PA PCP - General Family Medicine 05/06/21 [address] [place] [address] documented as of this encounter
--- OUTSIDE RECORDS SUMMARY | 2022-02-14 11:06 | XMS_ITS | Encounter Summary ---
:1960 Author Organization [facility] [place] [address] Care Team Providers Name Role Phone Beatriz Maurice Primary Care Provider Encounter Details Date Type Department Care Team Description 01/21/2022 Telephone Hematology and Oncology at [address] [address] [place] [address] Social History Tobacco Use Types Packs/Day [...] this encounter Miscellaneous Notes Telephone Encounter - Cortney Givens RD - 01/22/2022 1:30 PM EDT Call placed to pt- message states 'not accepting calls at this time', unable to leave a message. Will continue trying to f/u. documented in this encounter Plan of Treatment Upcoming Encounters Date Type Specialty Care Team Description 02/18/2022 Infusion Hematology and Oncology 02/21/2022 Infusion Hematology and Oncology 02/24/2022 Appointment Hematology and Oncology 02/24/2022 Office Visit Hematology and Oncology Parviz Modi MD [facility] DR HEMATOLOGY/[place] [address] Miroslava Pelayo APRN [facility] DR HEMATOLOGY/[place] [address] 02/24/2022 Office Visit Wound Care 02/24/2022 Appointment Hematology and Oncology 02/26/2022 Office Visit Neurology Leni Bustamante MD [facility] DR NEUROLOGY DEPT. [place], [place] [address] (Wo rk) documented as of this encounter Visit Diagnoses Not on filedocumented in this encounter Additional Health Concerns Infection Onset Date Last Indicated Resolved Time History of C. difficileComment: C. diffiicile 08/20/2021 testing positive 05/25/21. documented as of this encounter Care Teams Big Data Platform Architect Relationship Specialty Start Date End Date Beatriz Maurice PA PCP - General Family Medicine 05/06/21 [address] [place] [address] documented as of this encounter
--- OUTSIDE RECORDS SUMMARY | 2022-02-14 11:06 | XMS_ITS | Encounter Summary ---
:1960 Author Organization [facility] Address [facility] [place] [address] Care Team Providers Name Role Phone Beatriz Maurice Primary Care Provider Encounter Details Date Type Department Care Team Description 02/13/2022 Telephone Hematology and Oncology at Ernesto Daisy MD [facility] Catie narvaez HEMATOLOGY/[place] [address] [place] [address] [phone] (Wo rk) Social History Tobacco Use Types [...] this encounter Miscellaneous Notes Telephone Encounter - Daisy Gould MD - 02/13/2022 3:22 PM EDT ID: Herber Iverson is a 61 yo M with a 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 Mikael Scott, ED provider at [facility] Reason for call: atypical CP, rigors Patient acutely developed chills, CP lasting 10 minutes with tingling of his finger tips which resolved without intervention at home. He denied any s/s of infection or change to his ostomy output. He was brought to the ED at [facility] where he was found to be afebrile, hypotensive to 90/65, satting 98% on RA His BP responded to IVF with his SBP 90s-->110-120s Physical Exam: No AMS, no rash/skin lesions Available labs: Lactic acid 7 Chest xray clear, UA grossly normal Trops were at the upper limit of normal and EKG was unremarkable. WBC 6 with 85% neutrophils, Hb 7.2, Plts 57, ANC 5.3 (overall unchanged from his recent baseline) Na 133, K 4.9, GAP 15, BUN 37, Cr. 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 - Continue to trend trops and cardiac monitoring. Low suspicion for PE as patient is not Tachycardicnor in respiratory distress. His CP has also resolved. 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 C/w his home prednisone 40 mg daily. - Check a Tacrolimus trough, c/w at current home dose 0.5 in a.m and 1mg in pm - C/w home Acyclovir 800 mg BID, Fluconazole 200 mg daily - C/w home vancomycin 125 mg BID (Hx of C.Diff) - Continue to hold bactrim due to his STACIE - Check Coags including fibrinogen, give cryo if fibrinogen<100 - Patient was recently diagnosed with a RLE DVT on 02/03, c/w home eliquis 5 mg BID. If plts start trending down to <50K, we will consider switching to a renally adjusted lovenox dose - As per transfer center, the hospital is at capacity and the patient cannot be transferred. I remain available for further recs and will route this note to his primary BMT team. This is not an official consult as I am limited in my capacity to examine the patient and review hislabs. Faye Gould PGY4 Hematology Oncology Fellow Pager [phone] documented in this encounter Plan of Treatment Upcoming Encounters Date Type Specialty Care Team Description 02/18/2022 Infusion Hematology and Oncology 02/21/2022 Infusion Hematology and Oncology 02/24/2022 Appointment Hematology and Oncology 02/24/2022 Office Visit Hematology and Oncology Parviz Modi MD [facility] DR HEMATOLOGY/[place] [address] Miroslava Pelayo APRN [facility] DR HEMATOLOGY/[place] [address] 02/24/2022 Office Visit Wound Care 02/24/2022 Appointment Hematology and Oncology 02/26/2022 Office Visit Neurology Leni Bustamante MD [facility] DR NEUROLOGY DEPT. [place], [place] [address] (Wo rk) documented as of this encounter Visit Diagnoses Not on filedocumented in this encounter Additional Health Concerns Infection Onset Date Last Indicated Resolved Time History of C. difficileComment: C. diffiicile 08/20/2021 testing positive 05/25/21. documented as of this encounter Care Teams Mathematics Teacher Relationship Specialty Start Date End Date Beatriz Maurice PA PCP - General Family Medicine 05/06/21 [address] [place] [address] documented as of this encounter
--- OUTSIDE RECORDS SUMMARY | 2022-02-14 11:06 | XMS_ITS | Encounter Summary ---
:1960 Author Organization [facility] Address [facility] [place] [address] Care Team Providers Name Role Phone Beatriz Maurice Primary Care Provider Encounter Details Date Type Department Care Team Description 02/05/2022 Orders [facility] Catie narvaez [place] [address] DEPT. [phone] [place], [place] [address] (Wo rk) Social History Tobacco Use Types [...] and Oncology Parviz Modi MD [facility] DR HEMATOLOGY/[place] [address] Miroslava Pelayo APRN [facility] HEMATOLOGY/[place] [address] 02/24/2022 Office Visit Wound Care 02/24/2022 Appointment Hematology and Oncology 02/26/2022 Office Visit Neurology Leni Bustamante MD [facility] NEUROLOGY DEPT. [place], [place] [address] (Wo rk) documented as of this encounter Visit Diagnoses Not on filedocumented in this encounter Additional Health Concerns Infection Onset Date Last Indicated Resolved Time History of C. difficileComment: C. diffiicile 08/20/2021 testing positive 05/25/21. documented as of this encounter Care Teams Brush Clearer Surveying Relationship Specialty Start Date End Date Beatriz Maurice PA PCP - General Family Medicine 05/06/21 [address] [place] [address] documented as of this encounter
--- OUTSIDE RECORDS SUMMARY | 2022-02-14 11:06 | XMS_ITS | Encounter Summary ---
:1960 Author Organization [facility] Address [address] [place] [address] Care Team Providers Name Role Phone Beatriz Maurice Primary Care Provider Reason for Visit Reason Comments Follow-up Encounter Details Date Type Department Care Team Description 01/27/2022 Office Visit Hematology and Oncology Parviz Modi MD [facility] DR HEMATOLOGY/[place] [address] Hyperkalemia at [facility] Miroslava Pelayo ERECTING ENGINEER [facility] DR HEMATOLOGY/[place] [address] [facility] Hayley Dickey [facility] DR [place]EMATOLOGY[place] [address] [place] [address] Social History Tobacco Use Types Packs/Day [...] on file documented as of this encounter Last Filed Vital Signs Vital Sign Reading Time Taken Comments Blood Pressure 112/79 01/27/2022 8:33 AM EDT Pulse 76 01/27/2022 8:33 AM EDT Temperature 36.2 ??C (97.2 ??F) 01/27/2022 8:33 AM EDT Respiratory Rate 18 01/27/2022 8:33 AM EDT Oxygen Saturation 100% 01/27/2022 8:33 AM EDT Inhaled Oxygen Concentration - - Weight 82.7 kg (182 lb 4.8 oz) 01/27/2022 8:33 AM EDT Height 177.8 cm (5' 10) 01/27/2022 8:33 AM EDT Body Mass Index 26.16 01/27/2022 8:33 AM EDT documented in this encounter Progress Notes Hayley Macias, HEYDI - 01/27/2022 8:45 AM EDT HEMATOLOGY/BMT CONSULTATION VISIT NOTE CHIEF COMPLAINT: Herber Iverson Jr. is a 61 y.o. male originally referred by Dr. Beatriz Maurice for evaluation of leukemia. He is seen in follow-up today. Data Review (From Recent Hospital discharge summary and the EMR) Admitted to [facility] 04/29/21 for leukocytosus. Discharged 04/30/21 04/30/21 CBC - 40.7/8.1/20 ANC - 3,210 ALC - 12.85 AMC - 13.660 LDH - 655 COVIC-19 - NEG 05/06/21 admission for likely AML BM Bx - >95% cellular wit >90% myeloblasts CG - normal male karyotype NGS - + mutations in NPM1, FLT3 ??ITD and DNM3TA 05/08/21 D1 7&3 + midostauren induction 105/21 Day +14 BM Bx - hypocellular, <5% blasts NPM1 gene Mutation analysis: Positive for NPM1 mutation. The quantitative level of mutated NPM1 transcript is 4273/10,000 ABL1 copies (42.73%.) 05/26/21 Partial bowel resection for toxic megacolon and sepsis due to C. Diff infection. 06/07/21 Recovery BM Bx - NC marrow with NTLM and 3.5% blasts c/w remission. 07/04/21 BM Bx - hypercellular with 26% blasts --> relapsed AML 07/12/21 LP - positive foir myeloblasts (53% of 117 WBC/uL) 07/29/21 LP - FELY on LP/IT chemo #6 07/31/21 venetoclax plus gilteritinib reinduction started LP - FELY - plan to change to weekly LP and IT chemo. 08/05/21 LP - FELY 08/06/21 BM Bx - 90% cellular with increased immature precursors suggestive of persistent disease but low blast count. N NPM1 gene Mutation analysis: Positive for NPM1 mutation. The quantitative level of mutated NPM1 transcript is 10573/10,000 ABL1 copies (135.80%.) 08/08/21 Discharged after reinduction with gilteritinib and venetoclax and initial clearance of BLOOD BANK BUSINESS MANAGER leukemia. 08/12/21 LP - FELY 08/26/21 LP - FELY 09/05/20 LP - FELY 09/09/20 LP - FELY 09/12/20 BM Bx - Normocellular marrow (~50%) showing no increase in blasts, left-shifted erythroid hyperplasia and dysplasia, a relative granulocyte hypoplasia, and atypical megakaryocytes. NPM1 gene Mutation analysis - 1.95% 10/15/21 Transplant summary Admit: 10/15/2021 Discharge: 11/18/2021 MUD transplant Conditioning: Fludarabine, Busulfan, Rabbit ATG, MTX post stem cell infusion Day 0 = 10/22/2021 Donor ABO: O neg Recipient ABO: O pos CMV: Both Negative Donor sex: Male Complications: Ischemic stroke, BC + VRE, severe mucositis, STACIE 12/13-12/17/21 Admission to [facility] for failure to thrive. 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 01/06/22 Admission for STACIE, possible PNA and altered mental status. Discharged 01/12. Date NPM1 HSCT Day Source Total PMN [place] 05/21/21 43% 08/06/21 135% 09/12/21 1.95% 11/22/21 +31 PB >95% na na 12/16/21 +55 PB >95% na na 12/23/21 0.02% +62 BM >95% ORIGINAL HISTORY OF PRESENT ILLNESS Herber Iverson Jr. dates the onset of his illness to earlier this summer. He has felt more tired than usual but attributed it to the humidity. About 3 weeks ago his fatigue was so bad that he went to a clinic in [facility]. He was evaluated for a UTI that was negative. 1 week ago today he saw his PCPwho ended up gatting a CBC showing abnormal counts and he was admitted to [facility]. Other than fatigue has had no fevers, chills or drenching sweats. Has lost a few lbs - <10. Appetite has been down recently. No bleeding or bruising. Was very actived when younger - played a lot of sports into his 40's. 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 He is accompanied today by his partner Morales. 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 Herber comes in today feeling a bit better. He and Chai agree that he is eating better. Still very weak and using a walker at home. The plan at this time is for twice weekly physical therapy and they are waiting for that to get scheduled later on today. Herber remains on 30 mg a day of prednisone. He has not had any fevers or signs of infection. His ostomy has been working fairly well. No leak since Thursday. His stool is soft. He is gone back to taking mag plus protein which he thinks helps slow down the diarrhea caused by magnesium oxide. Remainder of review of systems is negative Colostomy functioning. loperamide helping? - better; seen by ostomy nurse today Fluid intake - 64 ozs per day Mental status, [place], photophobia, stiff neck - feels back to normal F/C/S - none How doing since started pred? - better Energy level ? - low as qbove Eating, appetite - much improved - eating 3 meals plus snacks. How doing with pills? - taking them Diarrhea - stool has thickened up recently. New skin rashes? - no: diffusely dry skin over the Bleeding or melena ? - none Does he still have Idhifa at home? - Current tacrolimus dose: 1.0 mg a.m. & 1.5 mg pm (01/17/22) Held today's dose?: Yes SH Tobacco - never ETOH - a few drinks per year Occupation - works in [employer] and [employer]. 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 Social - has a girlfriend and his boss Al as support. FH F - at ~70 of lung cancer - wsas a heavy smoker M - alive at 78 - no known health issues Siblings - No full siblings. 1/2 sister of AIDS, 1/2 brother is 51 - health unknown REVIEW OF SYSTEMS Constitutional --Energy level: very low --Pain: Paresthesias in lower extremities unchanged --Fevers/chills/sweats: No --Unexpected weight loss or gain: as above Eyes - No change in vision Ears, nose, throat - No change hearing, no oral or throat pain or thrush Cardiovascular --SOB: No --PICHARDO: Yes --chest pain: No Respiratory --Cough: No --SOB, PICHARDO: as above Gastrointestinal --Appetite: low --Nausea/vomiting/diarrhea/constipation: Stools: Soft, firming up Genitourinary --Dysuria or hematuria: No Musculoskeletal --Muscle pain or weakness: diffuse weakness due to deconditioning; steroid myopathy --Joint pain or swelling: No Immune System --Recent infections: No Hematology/Lymph --Bruising/bleeding/melena: No --Enlarged nodes or other masses: No Skin --Rashes or petechia: No rashes Other ROS: All negative PROBLEM LIST Patient Active Problem List Diagnosis Code ??? Clostridium difficile colitis A04.72 ??? 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 AML (acute myeloblastic leukemia) C92.00 ??? Paroxysmal atrial fibrillation I48.0 ??? GERD (gastroesophageal reflux disease) K21.9 ??? BPH (benign prostatic hyperplasia) N40.0 ??? S/P allogeneic bone marrow transplant Z94.81 ??? STACIE (acute kidney injury) N17.9 ??? Dehydration E86.0 ??? Hypomagnesemia E83.42 ??? Failure to thrive in adult R62.7 ??? Severe protein-calorie malnutrition E43 ??? Sepsis A41.9 MEDICATIONS Current Outpatient Medications Medication Instructions ??? acyclovir (ZOVIRAX) 800 mg, Oral, 2 TIMES DAILY ??? aspirin 81 mg, Oral, DAILY ??? Colostomy Belt (Ostomy Belt Medium) Misc Dispense 1 Sensura [place] Belt #[id number] per month. ??? flecainide (TAMBOCOR) 50 mg, Oral, 2 TIMES DAILY ??? fluconazole (DIFLUCAN) 200 mg, Oral, DAILY ??? lidocaine-prilocaine (EMLA) Cream Apply to mediport approximately 30 minutes prior to access. ??? loperamide (IMODIUM A-D) 2 mg, Oral, 3 TIMES DAILY ??? magnesium oxide (MAG-OX) 400 mg, Oral, 3 TIMES DAILY ??? metoprolol tartrate (LOPRESSOR) 25 mg, Oral, DAILY ??? ondansetron (ZOFRAN) 8 mg, Oral, EVERY 8 HOURS PRN ??? Ostomy Supplies Misc Dispense 2 boxes ( 10/box) of Adapt Barrier rings #2530 per month. ??? Ostomy Supplies Misc Dispense 2 boxes (10/box) of Sensura Flako Soft Convex One-piece Pouch #[id number] month. ??? Ostomy Supplies Misc Dispense 2 boxes (20/box) of Brava Elastic Barrier strips #[id number] per month. ??? Ostomy Supplies Misc Dispense 1 box (50/box) of a generic no-sting skin barrier wipe per month. ??? Ostomy Supplies Powder Dispense 1 bottle of Adapt stoma powder #7996 every other month. ??? pantoprazole EC (PROTONIX) 40 mg, Oral, DAILY ??? predniSONE (DELTASONE) 30 mg, Oral, EVERY MORNING, Take with food. ??? rosuvastatin (CRESTOR) 40 mg, Oral, DAILY ??? tacrolimus (PROGRAF) 1-1.5 mg, Oral, 2 TIMES DAILY, Take 2 capsules (1mg) in the morning. Take 3capsules (1.5mg) at night. ??? tamsulosin (FLOMAX) 0.4 mg, Oral, DAILY ??? vancomycin (VANCOCIN) 125 mg, Oral, 2 TIMES DAILY ALLERGIES/ADR Allergies Allergen Reactions ??? Other [Unclassified Drug] Other (See Comments) Artificial Sweetners-lightheadedness, dizziness ??? Bactoshield Chg [Chlorhexidine Gluconate] Itching and Rash CHG wipes reported he gets a rash and is itchy. ??? Cefepime Encephalopathy PHYSICAL EXAM VITAL SIGNS: Vitals: 01/27/22 0833 BP: 112/79 Patient Position: Sitting Pulse: 76 Resp: 18 Temp: 36.2 ??C (97.2 ??F) TempSrc: Temporal SpO2: 100% Weight: 82.7 kg (182 lb 4.8 oz) Height: 177.8 cm (5' 10) GENERAL: Herber Iverson Jr. is a tired and chronically ill-appearing 61 y.o. year old male who is moreupbeat but still quite weak and deconditioned ENT: Oropharynx dry. No lesions noted ENDOCRINE: No thyromegaly palpated. CARDIOVASCULAR: Heart with regular rate and rhythm without S3,S4 or murmurs. No cyanosis or peripheral edema. PULMONARY: Lungs are clear to auscultation without rales, rhonchi or wheezing. GASTROINTESTINAL: Functioning ostomy with soft stool MUSCULOSKELETAL: Not assessed SKIN: No rashes or petechiae. Diffusely dry, scaly skin LYMPH: No abnormal lymphadenopathy. NEUROLOGICAL: Grossly intact LABORATORY Recent Results (from the past 72 hour(s)) IgG Result Value Ref Range IgG 748 700 - 1,600 mg/dL Comprehensive metabolic panel (non-fasting) Result Value Ref Range Glucose Lvl 88 65 - 199 mg/dL BUN 49 (H) 10 - 20 mg/dL Creatinine 1.87 (H) 0.80 - 1.50 mg/dL Sodium 135 135 - 145 mmol/L Potassium 6.0 (H) 3.5 - 5.0 mmol/L Chloride 104 98 - 107 mmol/L CO2 21 (L) 22 - 31 mmol/L Anion Gap 10 5 - 15 mmol/L Calcium 9.4 8.5 - 10.5 mg/dL Total Protein 5.9 (L) 6.1 - 8.0 g/dL Albumin 3.7 3.2 - 5.2 g/dL AST 18 0 - 39 unit/L ALT 20 0 - 55 unit/L Alk Phos 105 40 - 130 unit/L Total Bilirubin 0.5 0.2 - 1.3 mg/dL Estimated GFR 38 (L) >=60 mL/min/1.73 m?? Magnesium Result Value Ref Range Magnesium 0.71 0.69 - 1.07 mmol/L Tacrolimus level Result Value Ref Range Tacrolimus Lvl 9.6 ng/mL Hemogram Result Value Ref Range WBC 6.6 4.0 - 9.5 x10(3)/mcL RBC 2.15 (L) 4.58 - 5.54 x10(6)/mcL Hemoglobin 8.0 (L) 13.7 - 16.5 g/dL Hematocrit 22.8 (L) 40.5 - 48.5 % MCV 106.0 (H) 82.9 - 93.1 fL MCH 37.2 (H) 27.5 - 32.1 pg MCHC 35.1 32.0 - 35.7 g/dL Platelets 58 (L) 145 - 357 x10(3)/mcL RDWSD 76.7 (H) 36.0 - 45.0 fL RDWCV 20.1 (H) 11.4 - 13.8 % MPV 11.8 7.6 - 12.9 fL nRBC % Auto 0.8 % nRBC Abs Auto 0.050 (H) 0.000 - 0.000 x10(3)/mcL Differential, Automated Result Value Ref Range Neutrophils % 77.6 % Neutr Abs (ANC) 5.16 1.70 - 6.10 x10(3)/mcL Lymphocytes % 14.3 % Lymphocytes Abs 1.0 0.9 - 3.2 x10(3)/mcL Monocytes % 6.9 % Monocyte Abs 0.5 0.3 - 0.9 x10(3)/mcL Eosinophils % 0.2 % Eosinophils Abs 0.0 0.0 - 0.4 x10(3)/mcL Basophils % 0.2 % Basophils Abs 0.0 0.0 - 0.1 x10(3)/mcL Immature Gran % 0.80 % Zara Gran Abs 0.05 (H) 0.00 - 0.04 x10(3)/mcL ABO/Rh Typing Result Value Ref Range ABORh Type O Neg Antibody screen Result Value Ref Range Ab Screen Interp Negative Expires at 2359 on: 01/30/2022 ABORH Recheck Status Result Value Ref Range ABORH Type Recheck Completed Type and Screen Validity Result Value Ref Range T&S only valid at [facility] Hosp Potassium Result Value Ref Range Potassium 5.5 (H) 3.5 - 5.0 mmol/L RADIOLOGY - None ASSESSMENT & PLANS 1. 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 --Now s/p 7 LPs showing FELY (6 past clear). Plan is for no further IT chemo unless situation changes.--Has now reachieved marrow with <5% blasts and negative CSF Currently no evidence to suggest AML recurrence --Plan for Day ~+60 bone marrow biopsy and chimerism and NPM1 MRD assessment.. --Consideration of Gilteritinib maintenance post allo 2. S/P Colectomy -- Stool less watery better with mag plus protein 3. Renal --Creatinine remains elevated but much improved -- Fluconazole dose-reduced to 200 mg / day --Continue to hold Bactrim Renal Impairment Dosing ACV: CrCl <25 -> 400 mg BID; CrCl <10 -> 200 mg BID Bactrim: CrCl 15-30 -> 1 DS daily; <15 1 DS QOD or hold Fluconazole: CrCl <50 -> 200 mg daily 5. ID --Monitor for oral thrush sure Lis Lux --Fluconazole dosing decreased due to renal insufficiency --CMV remains negative -- EBV low-level positivity at 100--need to monitor --IVIg remains >400 so IVIg not needed Prophylactic Antibiotic Guidelines per SOP Acyclovir 800 mg po BID to at least 1 year Bactrim starting day +30 1 DS daily or PCN VK 750 mg BID until 6 months off of immunosuppressant or 1 year, whichever longer - Bactrim to start day ~+30 PCP Prophylaxis - Bactrim 1 DS po daily (opreferred) or pentamadine or atovaquone until day +180 or off of all immunosupression. Fluconazole 400 mg to day +75 if on < 0.5 mg/kg/day steroid) Immunoglobulins (IVIg for IgG <400) - IgG currently >700 Immunizations - at 1 year per SOP. 4. 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 Deconditioning --Herber is very Deconditioned --Continue to use walker for safety -- Home physical therapy 6. Counseling: Herber appears to be slowly improving although he remains quite weak secondary to his time in the hospital as well as now being on steroids. The prednisone appears to have given him more energy and increase his appetite. His kidneys are better today although his potassium is up to 6.0. Wewill give him a liter of fluid and recheck his potassium. He is not eating a lot of high potassium foods at home. 7. Summary of Plans ?? 1 liter saline today ?? Continue Tacrolimus - pending level from today ?? consider restarting Bactrim at next visit ?? Continue Fluconazole at 200 mg / day----> increase to 400 mg if creatinine stays stable ?? oral thrush--->switch to Troches ?? physical therapy to begin at home---> Herber / Morales to f/u with phone call ?? Day ~+60 BM Bx -no evidence of disease ?? Nichelle Barnard MSW following ?? Immunizations at 6 months NEEDS NEW REFERRASL TO [facility] - PT and VNA She will call SS need to get HAYLEY MACIAS APRN Section of Hematology [facility] documented in this encounter Plan of Treatment Upcoming Encounters Date Type Specialty Care Team Description 02/18/2022 Infusion Hematology and Oncology 02/21/2022 Infusion Hematology and Oncology 02/24/2022 Appointment Hematology and Oncology 02/24/2022 Office Visit Hematology and Oncology Parviz Modi MD [facility] DR HEMATOLOGY/[place] [address] Miroslava Pelayo APRN [facility] HEMATOLOGY/[place] [address] 02/24/2022 Office Visit Wound Care 02/24/2022 Appointment Hematology and Oncology 02/26/2022 Office Visit Neurology Leni Bustamante MD [facility] NEUROLOGY DEPT. [place], [place] [address] (Wo rk) documented as of this encounter Visit Diagnoses Diagnosis Hyperkalemia Hyperpotassemia documented in this encounter Additional Health Concerns Infection Onset Date Last Indicated Resolved Time History of C. difficileComment: C. diffiicile 08/20/2021 testing positive 05/25/21. documented as of this encounter Care Teams Harpsichord Maker Relationship Specialty Start Date End Date Beatriz Maurice PA PCP - General Family Medicine 05/06/21 [address] [place] [address] documented as of this encounter
--- OUTSIDE RECORDS SUMMARY | 2022-02-14 11:06 | XMS_ITS | Encounter Summary ---
:1960 Author Organization [facility] Address [facility] [place] [address] Care Team Providers Name Role Phone Beatriz Maurice Primary Care Provider Encounter Details Date Type Department Care Team Description 02/10/2022 Hospital Encounter Hematology and S/P all ogeneic bone marrow transplant; [place] [facility] [place]; [facility] STACIE (acut e kidney injury); Drive H/O Clostridium difficile in [facility]; [place] [address]; [phone] Acute leukemia in remission; Anemia in neopl astic disease; Weakness acquir ed in ICU; Dehydration; Thrombocytopeni a; Debility Social History Tobacco Use Types Packs/Day Years [...] Sig Dispensed Refills Start Date End Date vancomycin (Vancocin) Take 1 capsule by mouth 60 capsule 5 0 02/10/2022 125 mg Capsule 2 times daily. Magnesium Oxide-Mg AA Take 3 tablets by mouth 270 tablet 3 0 02/10/2022 Chelate (Mg-Plus) 133 3 times daily. mg Tablet rosuvastatin (Crestor) Take 1 tablet by mouth 90 tablet 3 0 02/10/2022 40 mg Tablet daily. acyclovir (Zovirax) 800 Take 1 tablet by mouth 60 tablet 11 02/05/2022 mg Tablet 2 times daily. apixaban (Eliquis) 5 mg Take 1 tablet by mouth 60 tablet 5 02/03/2022 Tablet 2 times daily. fluconazole (Diflucan) Take 1 tablet by mouth 30 tablet 5 0 02/03/2022 200 mg Tablet daily. pantoprazole EC Take 1 tablet by mouth 90 tablet 3 02/04/20 22 (Protonix) 40 mg daily. Tablet, Delayed Release (E.C.) loperamide (Imodium Take 1 capsule by mouth 90 tablet 1 A-D) 2 mg Capsule 3 times daily. Ostomy Supplies Dispense 2 boxes 20 each 01/27/2022 MiscIndications: () of Adapt Attention to ileostomy Convex Ring #01378 per month. Patient it to use one with each pouch change every other day. tacrolimus (Prograf) Take 2-3 capsules by 60 capsule 3 01/14 0.5 mg mouth 2 times daily. CapsuleIndications: Take 2 capsules (1mg) Acute myeloid leukemia in the morning. Take 3 in remission capsules (1.5mg) at night. predniSONE (Deltasone) Take 3 tablets by mouth 90 tablet 2 12/24/2021 10 mg Tablet every morning. Take with food. Colostomy Belt (Ostomy Dispense 1 [employer] [place] 1 each 11 0 12/17/2021 Belt Medium) [facility] Belt #4230 per month. metoprolol tartrate Take 1 tablet by mouth 30 tablet 5 11/15 (Lopressor) 25 mg daily. Tablet ondansetron (Zofran) 8 Take 1 tablet by mouth 20 tablet 1 0 11/28/2021 mg Tablet every 8 hours as needed for Nausea. tamsulosin (Flomax) 0.4 Take 1 capsule by mouth 90 tablet 0 11/18/2021 mg Capsule daily. flecainide (TAMBOCOR) Take 1 tablet by mouth 60 tablet 3 50 mg Tablet 2 times daily. lidocaine-prilocaine Apply to mediport 30 g 0 10/04/19 22 (EMLA) Cream approximately 30 minutes prior to access. Ostomy Supplies Misc Dispense 2 boxes ( 20 each 022 10/box) of Adapt Barrier rings #7805 per month. Ostomy Supplies Powder Dispense 1 bottle of 28.3 g 5 11/2021 Adapt stoma powder #7906 every other month. Ostomy Supplies Misc Dispense 2 boxes 20 each 11 2 (10/box) of [employer] [place] Soft Convex One-piece Pouch #69854 per month. Ostomy Supplies Misc Dispense 2 boxes 40 each 2 (20/box) of Brava Elastic Barrier strips #[id number] per month. Ostomy Supplies Misc Dispense 1 box (50/box) 50 each of a generic no-sting skin barrier wipe per month. documented as of this encounter Progress Notes Christine Patterson RN - 02/10/2022 8:47 AM EDT Patient Name: Herber Iverson Jr. Patient Age: 61 y.o. Birthdate: 1960 Admit date: 02/10/2022 Attending Physician: No att. providers found Access visit. See MAR and/or flowsheet. documented in this encounter Plan of Treatment Upcoming Encounters Date Type Specialty Care Team Description 02/18/2022 Infusion Hematology and Oncology 02/21/2022 Infusion Hematology and Oncology 02/24/2022 Appointment Hematology and Oncology 02/24/2022 Office Visit Hematology and Oncology Parviz Modi MD [facility] DR HEMATOLOGY/[place] [address] Miroslava Pelayo APRN [facility] HEMATOLOGY/[place] [address] 02/24/2022 Office Visit Wound Care 02/24/2022 Appointment Hematology and Oncology 02/26/2022 Office Visit Neurology Leni Bustamante MD [facility] NEUROLOGY DEPT. [place], [place] [address] (Wo rk) documented as of this encounter Procedures Procedure Name Priority Date/Time Associated Comments Diagnosis TYPE AND SCREEN STAT 02/10/2022 8:45 AM Result s for this VALIDITY EDT procedure are i n the results section. ABORH RECHECK STATUS STAT 02/10/2022 8:45 AM R esults for this EDT procedure are i n the results section. HEMOGRAM STAT 02/10/2022 8:45 AM Hypomagnesemi a Results for this EDT STACIE (acute kidney procedure are in injury) the results H/O Clostridium section. 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 in neoplastic disea se Weakness acquired in ICU S/P allogeneic bone marrow transplan t Dehydration DIFFERENTIAL, STAT 02/10/2022 8:45 AM Hypomagnesemi a Results for this AUTOMATED EDT STACIE (acute kidney procedure are in injury) the results H/O Clostridium section. 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 in neoplastic disea se Weakness acquired in ICU S/P allogeneic bone marrow transplan t Dehydration HC FK-506 (TACROLIMUS) STAT 02/10/2022 8:45 AM Hypoma gnesemia Results for this EDT STACIE (acute kidney procedure are in injury) the results Thrombocytopenia section. Anemia in neoplastic disea se Weakness acquired in ICU Debility HC CMV QUANT Routine 02/10/2022 8:45 AM S/P allogeneic bone Re sults for this EDT marrow transplant procedure are in the results section. ABO/RH TYPING STAT 02/10/2022 8:45 AM Anemia in Results for this EDT neoplastic disease procedure are in the results section. 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 HC ANTIBODY STAT 02/10/2022 8:45 AM Anemia in DETECTION,CAPTURE-R EDT neoplastic disease HC MAGNESIUM, SERUM Routine 02/10/2022 8:45 AM Hypomagne semia Results for this EDT STACIE (acute kidney procedure are in injury) the results H/O Clostridium section. 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 COMPREHENSIVE Routine 02/10/2022 8:45 AM Hypomagnesemi a Results for this METABOLIC PANEL EDT STACIE (acute kidney procedu re are in (NON-FASTING) injury) the results H/O Clostridium section. 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 in neoplastic disea se Weakness acquired in ICU S/P allogeneic bone marrow transplan t Dehydration documented in this encounter Results Type and Screen Validity (02/10/2022 8:45 AM EDT) [facility] Method Time Signature T&S only valid [facility] [place] [facility] at [facility] Comment: This Type and Screen result is only valid at the [facility] Hospital Specimen Anatomical Collection Method Collection Time Receive d Time (Source) Location / / Volume Laterality Blood 02/10/2022 8:45 AM 2 8:52 EDT AM EDT Resulting Agency Comment Spec In Lab Parviz Modi MD BLOOD BANK ORDERABLES Performing Organization Address City/State/[place] [address] ABORH Recheck Status (02/10/2022 8:45 AM EDT) [facility] Method Time Signature ABORH Type Completed [facility] LABORATORY Specimen Anatomical Collection Method Collection Time Receive d Time (Source) Location / / Volume Laterality Blood 02/10/2022 8:45 AM 2 8:52 EDT AM EDT Resulting Agency Comment Spec In Lab Parviz Modi MD BLOOD BANK ORDERABLES Performing Organization Address City/State/[place] [address] Antibody screen (02/10/2022 8:45 AM EDT) [facility] Method Time Signature Ab Screen Negative [facility] LABORATORY Expires at 02/13/2022 [facility] [id number] on: [facility] Specimen Anatomical Collection Method Collection Time Receive d Time (Source) Location / / Volume Laterality Blood 02/10/2022 8:45 AM 2 8:52 EDT AM EDT Resulting Agency Comment Spec In Lab Parviz Modi MD BLOOD BANK ORDERABLES Performing Organization Address City/[facility]/ZIP Code Phon e Number [address] ABO/Rh Typing (02/10/2022 8:45 AM EDT) athologist Signature ABORh Type O Neg [facility] Specimen Anatomical Collection Method Collection Time Receive d Time (Source) Location / / Volume Laterality Blood 02/10/2022 8:45 AM 2 8:52 EDT AM EDT Resulting Agency Comment Spec In Lab Parviz Modi MD BLOOD BANK ORDERABLES Performing Organization Address City/[facility]/[place] [address] (ABNORMAL) Differential, Automated (02/10/2022 8:45 AM EDT) [facility] Method Time Signature Neutrophils % 86.1 % [facility] Neutr Abs (ANC) 4.65 1.70 - [facility] 6.10 [facility] x10(3)/[facility] LABORATORY Lymphocytes % 6.9 % [facility] Lymphocytes Abs 0.4 (L) 0.9 - 3.2 [facility] x10(3)/[facility] LABORATORY Monocytes % 5.9 % [facility] Monocyte Abs 0.3 0.3 - 0.9 [facility] x10(3)/[facility] LABORATORY Eosinophils % 0.0 % [facility] Eosinophils Abs 0.0 0.0 - 0.4 [facility] x10(3)/[facility] LABORATORY Basophils % 0.0 % [facility] Basophils Abs 0.0 0.0 - 0.1 [facility] x10(3)/[facility] LABORATORY Immature Gran % 1.10 % [facility] Comment: Immature granulocytes(IG's)percentage an d absolute count will include metamyelocytes, myelocytes, and promyelo cytes. Blood smears from CBCs yielding IG's will be scanned manually for concor dance. If this scan disagrees with the automated IG or if promyelocytes are not ed, a manual differential will be performed. Zara Gran Abs 0.06 (H) 0.00 - 0.04 x10(3)/[facility] LABORATORY Specimen Anatomical Collection Method Collection Time Receive d Time (Source) Location / / Volume Laterality Blood 02/10/2022 8:45 AM 9:03 EDT AM EDT Resulting Agency Comment Spec In Lab Parviz Modi MD HEMATOLOGY ORDERABLES Performing Organization Address City/State/[place] [address] (ABNORMAL) Hemogram (02/10/2022 8:45 AM EDT) [facility] gist Method Time Signature WBC 5.4 4.0 - 9.5 [facility] x10(3)/[facility] LABORATORY RBC 2.06 (L) 4.58 - [facility] 5.54 [facility] x10(6)/[facility] LABORATORY Hemoglobin 7.4 (L) 13.7 - [facility] 16.5 g/dL [facility] Hematocrit 22.1 (L) 40.5 - [facility] 48.5 % [facility] MCV 107.3 (H) 82.9 - [facility] 93.1 fL [facility] MCH 35.9 (H) 27.5 - [facility] 32.1 pg [facility] MCHC 33.5 32.0 - [facility] 35.7 g/dL [facility] Platelets 64 (L) 145 - 357 [facility] x10(3)/[facility] LABORATORY RDWSD 71.3 (H) 36.0 - [facility] 45.0 [facility] LABORATORY RDWCV 18.3 (H) 11.4 - [facility] 13.8 % [facility] MPV 11.1 7.6 - 12.9 [facility] LABORATORY nRBC % Auto 0.6 % [facility] nRBC Abs Auto 0.030 (H) 0.000 - [facility] 0.000 [facility] x10(3)/[facility] LABORATORY Specimen Anatomical Collection Method Collection Time Receive d Time (Source) Location / / Volume Laterality Blood 02/10/2022 8:45 AM 2 9:03 EDT AM EDT Resulting Agency Comment Spec In Lab Parviz Modi MD HEMATOLOGY ORDERABLES Performing Organization Address City/[facility]/ZIP Code Phon e Number [address] Tacrolimus level (02/10/2022 8:45 AM EDT) P athologist Signature Tacrolimus Lvl 6.6 ng/mL [facility] Comment: Trough therapeutic range is 3-15 [...] EDT Resulting Agency Comment Spec In Lab Parviz Modi MD CHEMISTRY ORDERABLES Performing Organization Address City/[facility]/ZIP Code Phon e Number [address] (ABNORMAL) Magnesium (02/10/2022 8:45 AM EDT) athologist Signature Magnesium 0.67 (L) 0.69 - 1.07 [facility] mmol/L [facility] Specimen Anatomical Collection Method Collection Time Receive d Time (Source) Location / / Volume Laterality Blood 02/10/2022 8:45 AM 9:03 EDT AM EDT Resulting Agency Comment Spec In Lab Parviz Modi MD CHEMISTRY ORDERABLES Performing Organization Address City/State/[place] [address] (ABNORMAL) Comprehensive metabolic panel (non-fasting) (02/10/2022 8:45 AM EDT) P athologist Signature Glucose Lvl 93 65 - 199 [facility] mg/dL [facility] Comment: Diabetes: >=200 mg/dL plus symp toms BUN 39 (H) 10 - 20 mg/dL [facility]ORY Creatinine 2.07 (H) 0.80 - 1.50 mg/dL [facility]OR[facility]ORY Sodium 134 (L) 135 - 145 mmol/L [facility] Potassium 5.4 (H) 3.5 - 5.0 mmol/L [facility] Comment: Please note: ??Patients with WBC >100,00 0 may have falsely elevated Potassium levels. ??For accurate Potassium quantif ication in these patients send serum separator tube (gold top) for subsequent determinations. ??Contact the Clinical Chemistry Laboratory if there are any qu estions. Chloride 99 98 - 107 mmol/L [facility] CO2 20 (L) 22 - 31 mmol/L [facility] Anion Gap 15 5 - 15 mmol/L [facility] Calcium 9.0 8.5 - 10.5 mg/dL [facility] Total Protein 5.4 (L) 6.1 - 8.0 g/dL [facility] Albumin 3.6 3.2 - 5.2 g/dL [facility] AST 15 0 - 39 unit/L [facility] ALT 19 0 - 55 unit/L [facility] Alk Phos 70 40 - 130 unit/L [facility] Total Bilirubin 0.4 0.2 - 1.3 mg/dL [facility] Estimated GFR 36 (L) >=60 mL/min/1.73 m?? [facility] Comment: This patient's estimated GFR was [...] EDT Resulting Agency Comment Spec In Lab Parviz Modi MD CHEMISTRY ORDERABLES Performing Organization Address City/State/[place] [address] CMV PCR, Quantitative (02/10/2022 8:45 AM EDT) [facility] Method Time Signature CMV Quant Not Detected Not Detected JIA (Numeric) IU/mL [facility] LABORATORY Comment: Indication for Study: Monitoring CMV [...] EDT Resulting Agency Comment Spec In Lab Parviz Modi MD IMMUNOLOGY ORDERABLES Performing Organization Address City/State/ZIP Code Phon e Number [address] (ABNORMAL) IgG (02/10/2022 8:45 AM EDT) athologist Signature IgG 618 (L) 700 - 1,600 [facility] mg/dL [facility] Comment: Pediatric Reference Intervals obtained f rom the Caliper Reference Interval project. http://[email or web address]/caliperp roject/index.html Specimen Anatomical Collection Method Collection Time Receive d Time (Source) Location / / Volume Laterality Blood 02/10/2022 8:45 AM 2 9:03 EDT AM EDT Resulting Agency Comment Spec In Lab Parviz Modi MD IMMUNOLOGY ORDERABLES Performing Organization Address City/[facility]/[place] [address] documented in this encounter Visit Diagnoses Diagnosis S/P allogeneic bone marrow transplant Bone marrow replaced by transplant Hypomagnesemia Disorders of magnesium metabolism STACIE (acute kidney injury) Acute kidney failure, unspecified H/O Clostridium difficile infection Personal history of other infectious and parasitic disease 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 status Acute leukemia in remission Acute leukemia of unspecified cell type in remission Anemia in neoplastic disease Weakness acquired in ICU Dehydration Thrombocytopenia Thrombocytopenia, unspecified Debility Debility, unspecified documented in this encounter Administered Medications Inactive Administered Medications - up to 3 most recent administrations Medication Order MAR Action Action Date Dose Rate Site sodium chloride 0.9 % (flush) (BD Given 02/10/2022 1:05 PM EDT 2 0 mLs PosiFlush Normal Saline 0.9) flush 10-20 mL 10-20 mL, Intravenous, EVERY 1 MIN PRN, Starting on Thu02/10/22 at 0831, Until Thu02/11/22 at 0433, Pelt Dropper, Routine Given 02/10/2022 8:45 AM EDT 20 mLs documented in this encounter Additional Health Concerns Infection Onset Date Last Indicated Resolved Time History of C. difficileComment: C. diffiicile 08/20/2021 testing positive 05/25/21. documented as of this encounter Care Teams Watch Repairer Apprentice Relationship Specialty Start Date End Date Beatriz Maurice PA PCP - General Family Medicine 05/06/21 [address] [place] [address] documented as of this encounter
--- OUTSIDE RECORDS SUMMARY | 2022-02-14 11:06 | XMS_ITS | Encounter Summary ---
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 [address] Referral ID Status Reason Start Date Expiration Date Visits V isits Requested Authorized [id number] Authorized 11/22/2021 11/22/2022 99 99 Encounter Details Date Type Department Care Team Description 02/10/2022 Hospital Encounter Hematology and Hypomag nesemia; Oncology at [facility] S/P allogeneic bone marrow t ransplant; [facility] Acute [place] [address] Social History Tobacco Use Types Packs/Day [...] of [employer] Attention to ileostomy Convex Ring #21107 per month. Patient it to use one [...] food. Colostomy Belt (Ostomy Dispense 1 Sensura [place] 1 each 11 0 12/17/2021 Belt Medium) Misc Belt #4237 per month. metoprolol tartrate Take 1 tablet [...] Misc Dispense 2 boxes ( 20 each 11 022 10/box) of [employer] Barrier rings #7805 per month. Ostomy Supplies Powder Dispense 1 bottle of 28.3 g 5 11/2021 [employer] stoma powder #7906 every other month. Ostomy Supplies Misc Dispense 2 boxes 20 each 11 2 (10/box) of S[employer]ura [place] Soft Convex One-piece Pouch #39427 per month. Ostomy Supplies Misc Dispense 2 boxes 40 each 11 2 (20/box) of Brava Elastic Barrier strips #549218 per month. Ostomy Supplies Misc Dispense 1 box (50/box) 50 each of a generic no-sting skin barrier wipe per month. documented as of this encounter Progress Notes Mellisa Mcnair RN - 02/10/2022 2:59 PM EDT Patient Name: Herber Iverson Jr. Patient Age: 61 y.o. Birthdate: 1960 Admit date: 02/10/2022 Attending Physician: No att. providers found Herber Iverson Jr., 61 y.o. male with diagnosis of acute myeloblastic leukemia is here for an infusionof 1L normal saline over 1 hour. S: Pt. offers no complaints at this time. Reviewed plan of care for infusion visit; patient verbalized understanding of plan as outlined. O: Chemotherapy orders independently verified for correct drug name, route and dosage per patient's height, weight and BSA by Mellisa Mcnair RN and onsite pharmacist. Chemotherapy administered per hospital policy. REACTIONS (DESCRIPTION, TIME, INTERVENTION AND EFFECTIVENESS) None reported. A: Pt. Tolerated treatment well. Herber Iverson Jr. confirms that all questions and issues have been addressed. P: Return to clinic as scheduled. documented in this encounter Plan of Treatment Upcoming Encounters Date Type Specialty Care Team Description 02/18/2022 Infusion Hematology and Oncology 02/21/2022 Infusion Hematology and Oncology 02/24/2022 Appointment Hematology and Oncology 02/24/2022 Office Visit Hematology and Oncology Parviz Modi MD [facility] [address] HEMATOLOGY/[place] [address] Miroslava Pelayo APRN [facility] [address] HEMATOLOGY/[place] [address] 02/24/2022 Office Visit Wound Care 02/24/2022 Appointment Hematology and Oncology 02/26/2022 Office Visit Neurology Leni Bustamante MD [facility] DR NEUROLOGY DEPT. 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 documented in this encounter Administered Medications Inactive Administered Medications - up to 3 most recent administrations Medication Order MAR Action Action Date Dose Rate Site heparin (pf) (porcine) (100 Given 02/10/2022 1:05 PM EDT 500 Uni ts units/mL) flush 5 mL syringe 500 Units 500 Units, Intravenous, ONCE PRN, Starting on 02/10/22 at 0831, Until Thu02/11/22 at 0433, Line Care, Routine sodium chloride 0.9 % (flush) (BD PosiFlush Given 02/10/2022 1:05 PM EDT 20 mLs Normal Saline 0.9) flush 10-20 mL 10-20 mL, Intravenous, EVERY 1 MIN PRN, Starting on Thu02/10/22 at 0831, Until Thu02/11/22 at 0433, Outside Parts Salesman, Routine Given 02/10/2022 8:45 AM EDT 20 mLs sodium chloride 0.9% infusion New Bag 02/10/2022 11:56 AM EDT 999 mL/hr 999 mL/hr 999 mL/hr, Intravenous, CONTINUOUS, Starting on Thu02/10/22 at 1200, Until Thu02/11/22 at 0433, 1 liter over 1 hour. documented in this encounter Additional Health Concerns Infection Onset Date Last Indicated Resolved Time History of C. difficileComment: C. diffiicile 08/20/2021 testing positive 05/25/21. documented as of this encounter Care Teams Hob Grinder Relationship Specialty Start Date End Date Beatriz Maurice PA PCP - General Family Medicine 05/06/21 [address] [place] [address] documented as of this encounter
--- OUTSIDE RECORDS SUMMARY | 2022-02-14 11:06 | XMS_ITS | Encounter Summary ---
:1960 Author Organization [facility] Address [facility] [place] [address] Care Team Providers Name Role Phone Beatriz Maurice Primary Care Provider Encounter Details Date Type Department Care Team Description 01/27/2022 Hospital Encounter Hematology and S/P all ogeneic bone marrow transplant; Oncology at [facility] Hypomagnesemia; [facility] STACIE (acut e kidney injury); Drive H/O Clostridium difficile in [facility]; [place] [address]; [phone] Acute leukemia in remission; Anemia in neopl [...] Supplies Dispense 2 boxes 20 each 11 01/27/2022 MiscIndications: (10/box) of Adapt Attention to Convex Ring #[id number] per ileostomy month. Patient it to use [...] Belt Dispense 1 Sensura Flako 1 each 11 2 (Ostomy Belt Medium) Belt #[id number] per month. Misc metoprolol tartrate Take 1 tablet by mouth [...] 30 minutes prior to access. Ostomy Supplies [facility] Dispense 2 boxes ( 20 each 022 10/box) of Adapt Barrier rings #[id number] per month. Ostomy Supplies Dispense 1 bottle of 28.3 g 5 08/20/2021 Powder Adapt stoma powder #[id number] every other month. Ostomy Supplies [facility] Dispense 2 boxes 20 each 11 2 (10/box) of Sensura [place] Soft Convex One-piece Pouch #[id number] per month. Ostomy Supplies [facility] Dispense 2 boxes 40 each 2 (20/box) of Brava Elastic Barrier strips #[id number] per month. Ostomy Supplies [facility] Dispense 1 box 50 each 11 08/20/2021 [...] Chewable daily. documented as of this encounter Plan of Treatment Upcoming Encounters Date Type Specialty Care Team Description 02/18/2022 Infusion Hematology and Oncology 02/21/2022 Infusion Hematology and Oncology 02/24/2022 Appointment Hematology and Oncology 02/24/2022 Office Visit Hematology and Oncology Parviz Modi MD [facility] DR HEMATOLOGY/[place] [address] Miroslava Pelayo APRN [facility] DR HEMATOLOGY/[place] [address] 02/24/2022 Office Visit Wound Care 02/24/2022 Appointment Hematology and Oncology 02/26/2022 Office Visit Neurology Leni Bustamante MD [facility] ER NEUROLOGY DEPT. [place], [place] [address] (Wo rk) documented as of this encounter Procedures Procedure Name Priority Date/Time Associated Comments Diagnosis TYPE AND SCREEN STAT 01/27/2022 7:35 AM Result s for this VALIDITY EDT procedure are i n the results section. ABORH RECHECK STATUS STAT 01/27/2022 7:35 AM R esults for this EDT procedure are i n the results section. HEMOGRAM STAT 01/27/2022 7:35 AM Hypomagnesemi a Results for this EDT STACIE (acute kidney procedure are in injury) the results H/O Clostridium section. 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 Anemia in neoplastic disea se Weakness acquired in ICU Debility HC CMV QUANT Routine 01/27/2022 7:35 AM S/P allogeneic bone Re sults for this EDT marrow transplant procedure are in the results section. ABO/RH TYPING STAT 01/27/2022 7:35 AM Anemia in Results for this EDT neoplastic disease procedure are in the results section. 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 HC ANTIBODY STAT 01/27/2022 7:35 AM Anemia in DETECTION,CAPTURE-R EDT neoplastic disease HC MAGNESIUM, SERUM Routine 01/27/2022 7:35 AM Hypomagne semia Results for this EDT STACIE (acute kidney procedure are in injury) the results H/O Clostridium section. 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 COMPREHENSIVE Routine 01/27/2022 7:35 AM Hypomagnesemi a Results for this METABOLIC PANEL EDT STACIE (acute kidney procedu re are in (NON-FASTING) injury) the results H/O Clostridium section. 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 in neoplastic disea se Weakness acquired in ICU S/P allogeneic bone marrow transplan t Dehydration documented in this encounter Results Type and Screen Validity (01/27/2022 7:35 AM EDT) [facility] Method Time Signature T&S only valid [facility] LABORATORY Comment: This Type and Screen result is only valid at the [facility] Specimen Anatomical Collection Method Collection Time Receive d Time (Source) Location / / Volume Laterality Blood 01/27/2022 7:35 AM 2 7:38 EDT AM EDT Resulting Agency Comment Spec In Lab Parviz Modi MD BLOOD BANK ORDERABLES Performing Organization Address City/[facility]/[place] [address] ABORH Recheck Status (01/27/2022 7:35 AM EDT) [facility] Signature ABORH Type Completed [facility] LABORATORY Specimen Anatomical Collection Method Collection Time Receive d Time (Source) Location / / Volume Laterality Blood 01/27/2022 7:35 AM 2 7:38 EDT AM EDT Resulting Agency Comment Spec In Lab Parviz Modi MD BLOOD BANK ORDERABLES Performing Organization Address City/[facility]/[place] [address] Antibody screen (01/27/2022 7:35 AM EDT) [facility] Method Time Signature Ab Screen Negative [facility] LABORATORY Expires at 01/30/2022 [facility] [id number] on: [facility] LABORATORY Specimen Anatomical Collection Method Collection Time Receive d Time (Source) Location / / Volume Laterality Blood 01/27/2022 7:35 AM 2 7:38 EDT AM EDT Resulting Agency Comment Spec In Lab Parviz Modi MD BLOOD BANK ORDERABLES Performing Organization Address City/State/ZIP Code Phon e Number [address] ABO/Rh Typing (01/27/2022 7:35 AM EDT) athologist Signature ABORh Type O Neg [facility] LABORATORY Specimen Anatomical Collection Method Collection Time Receive d Time (Source) Location / / Volume Laterality Blood 01/27/2022 7:35 AM 2 7:38 EDT AM EDT Resulting Agency Comment Spec In Lab Parviz Modi MD BLOOD BANK ORDERABLES Performing Organization Address City/[facility] Phon e Number [address] (ABNORMAL) Differential, Automated (01/27/2022 7:35 AM EDT) athologist Signature Neutrophils % 77.6 % [facility] LABORATORY Neutr Abs (ANC) 5.16 1.70 - [facility] 6.10 [facility] x10(3)/[facility] LABORATORY Lymphocytes % 14.3 % [facility] LABORATORY Lymphocytes Abs 1.0 0.9 - 3.2 [facility] x10(3)/[facility] LABORATORY Monocytes % 6.9 % [facility] LABORATORY Monocyte Abs 0.5 0.3 - 0.9 [facility] x10(3)/[facility] LABORATORY Eosinophils % 0.2 % [facility] LABORATORY Eosinophils Abs 0.0 0.0 - 0.4 [facility] x10(3)/[facility] LABORATORY Basophils % 0.2 % [facility] LABORATORY Basophils Abs 0.0 0.0 - 0.1 [facility] x10(3)/[facility] LABORATORY Immature Gran % 0.80 % [facility] LABORATORY Comment: Immature granulocytes(IG's)percentage an d absolute count will include metamyelocytes, myelocytes, and promyelo cytes. Blood smears from CBCs yielding IG's will be scanned manually for kirti black. If this scan disagrees with the automated IG or if promyelocytes are not ed, a manual differential will be performed. Zara Gran Abs 0.05 (H) 0.00 - 0.04 x10(3)/[facility] LABORATORY Specimen Anatomical Collection Method Collection Time Receive d Time (Source) Location / / Volume Laterality Blood 01/27/2022 7:35 AM 7:57 EDT AM EDT Resulting Agency Comment Spec In Lab Parviz Modi MD HEMATOLOGY ORDERABLES Performing Organization Address City/State/[place] [address] (ABNORMAL) Hemogram (01/27/2022 7:35 AM EDT) [facility] gist Method Time Signature WBC 6.6 4.0 - 9.5 [facility] x10(3)/[facility] LABORATORY RBC 2.15 (L) 4.58 - [facility] 5.54 [facility] x10(6)/[facility] LABORATORY Hemoglobin 8.0 (L) 13.7 - [facility] 16.[facility] g/dL [facility] LABORATORY Hematocrit 22.8 (L) 40.5 - [facility] 48.5 % [facility] LABORATORY MCV 106.0 (H) 82.9 - [facility] 93.1 [facility] LABORATORY MCH 37.2 (H) 27.5 - [facility] 32.1 pg [facility] LABORATORY MCHC 35.1 32.0 - [facility] 35.[facility] g/dL [facility] LABORATORY Platelets 58 (L) 145 - 357 [facility] x10(3)/[facility] LABORATORY RDWSD 76.7 (H) 36.0 - [facility] 45.0 [facility] LABORATORY RDWCV 20.1 (H) 11.4 - [facility] 13.8 % [facility] LABORATORY MPV 11.8 7.6 - 12.9 [facility] LABORATORY nRBC % Auto 0.8 % [facility] LABORATORY nRBC Abs Auto 0.050 (H) 0.000 - [facility] 0.000 [facility] x10(3)/[facility] LABORATORY Specimen Anatomical Collection Method Collection Time Receive d Time (Source) Location / / Volume Laterality Blood 01/27/2022 7:35 AM 2 7:57 EDT AM EDT Resulting Agency Comment Spec In Lab Parviz Modi MD HEMATOLOGY ORDERABLES Performing Organization Address City/[facility]/[place] [address] Tacrolimus level (01/27/2022 7:35 AM EDT) athologist Signature Tacrolimus Lvl 9.6 ng/mL [facility] LABORATORY Comment: Trough therapeutic range is [...] Location / / Volume Laterality Blood 01/27/2022 7:35 AM 2 7:57 EDT AM EDT Resulting Agency Comment Spec In Lab Parviz Modi MD CHEMISTRY ORDERABLES Performing Organization Address City/[facility]/[place] [address] Magnesium (01/27/2022 7:35 AM EDT) athologist Signature Magnesium 0.71 0.69 - 1.07 [facility] mmol/L [facility] LABORATORY Specimen Anatomical Collection Method Collection Time Receive d Time (Source) Location / / Volume Laterality Blood 01/27/2022 7:35 AM 2 7:57 EDT AM EDT Resulting Agency Comment Spec In Lab Parviz Modi MD CHEMISTRY ORDERABLES Performing Organization Address City/[facility] [place] [address] (ABNORMAL) Comprehensive metabolic panel (non-fasting) (01/27/2022 7:35 AM EDT) athologist Signature Glucose Lvl 88 65 - 199 [facility] mg/dL [facility] LABORATORY Comment: Diabetes: >=200 mg/dL plus symp toms BUN 49 (H) 10 - 20 mg/dL [facility] LABORATORY Creatinine 1.87 (H) 0.80 - 1.50 mg/dL [facility] LABORATORY Sodium 135 135 - 145 mmol/L [facility] LABORATORY Potassium 6.0 (H) 3.5 - 5.0 mmol/L [facility] LABORATORY Comment: Please note: ??Patients with WBC >100,00 0 may have falsely elevated Potassium levels. ??For accurate Potassium quantif ication in these patients send serum separator tube (gold top) for subsequent determinations. ??Contact the Clinical Chemistry Laboratory if there are any qu estions. Chloride 104 98 - 107 mmol/L [facility] LABORATORY CO2 21 (L) 22 - 31 mmol/L [facility] LABORATORY Anion Gap 10 5 - 15 mmol/L [facility] LABORATORY Calcium 9.4 8.5 - 10.5 mg/dL [facility] LABORATORY Total Protein 5.9 (L) 6.1 - 8.0 g/dL [facility] LABORATORY Albumin 3.7 3.2 - 5.2 g/dL [facility] LABORAT[facility] AST 18 0 - 39 unit/L [facility] LABORATORY ALT 20 0 - 55 unit/L [facility] LABORATORY Alk Phos 105 40 - 130 unit/L [facility] LABORAT[facility] Total Bilirubin 0.5 0.2 - 1.3 mg/dL [facility] LABORATORY Estimated GFR 38 (L) >=60 mL/min/1.73 m?? [facility] LABORATORY Comment: This patient? s estimated glomerular filtration rate (eGFR) is between 38 mL/min/1.73 m2 (patients with less muscl e mass per kg body weight) and 44 mL/min/1.73 m2 (patients with more muscl e [...] Location / / Volume Laterality Blood 01/27/2022 7:35 AM 2 7:57 EDT AM EDT Resulting Agency Comment Spec In Lab Parviz Modi MD CHEMISTRY ORDERABLES Performing Organization Address City/[facility]/ZIP Code Phon e Number [address] IgG (01/27/2022 7:35 AM EDT) P athologist Signature IgG 748 700 - 1,600 [facility] mg/dL [facility] LABORATORY Comment: Pediatric Reference Intervals obtained f rom the Caliper Reference Interval project. [email or web address] Specimen Anatomical Collection Method Collection Time Receive d Time (Source) Location / / Volume Laterality Blood 01/27/2022 7:35 AM 2 7:57 EDT AM EDT Resulting Agency Comment Spec In Lab Parviz Modi MD IMMUNOLOGY ORDERABLES Performing Organization Address City/[facility] [place] [address] CMV PCR, Quantitative (01/27/2022 7:35 AM EDT) Patholo gist Method Time Signature CMV Quant Not Detected Not Detected JIA (Numeric) IU/mL [facility] LABORATORY Comment: Indication for Study: Monitoring CMV [...] Location / / Volume Laterality Blood 01/27/2022 7:35 AM 8:02 EDT AM EDT Resulting Agency Comment Spec In Lab Parviz Modi MD IMMUNOLOGY ORDERABLES Performing Organization Address City/State/[facility] [place] [address] documented in this encounter [...] Debility Debility, unspecified documented in this encounter Additional Health Concerns Infection Onset Date Last Indicated Resolved Time History of C. difficileComment: C. diffiicile 08/20/2021 testing positive 05/25/21. documented as of this encounter Care Teams Armed Security Guard Relationship Specialty Start Date End Date Beatriz Maurice PA PCP - General Family Medicine 05/06/21 [address] [place] [address] documented as of this encounter
--- OUTSIDE RECORDS SUMMARY | 2022-02-14 11:06 | XMS_ITS | Encounter Summary ---
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 [address] Referral ID Status Reason Start Date Expiration Date Visits V isits Requested Authorized [id number] Authorized 11/22/2021 11/22/2022 99 99 Encounter Details Date Type Department Care Team Description 02/05/2022 Infusion Hematology Oncology at [facility]; [facility] S/P allogeneic bone marrow t ransplant; [address] [place] [address] Drive Acute myeloid leukemia in re [place], [place] [phone] Social History Tobacco Use Types Packs/Day Years [...] Sign Reading Time Taken Comments Blood Pressure 111/75 02/05/2022 8:33 AM EDT Pulse 90 02/05/2022 8:33 AM EDT Temperature 36.2 ??C (97.1 ??F) 02/05/2022 8:33 AM EDT Respiratory Rate 18 02/05/2022 8:33 AM EDT Oxygen Saturation 100% 02/05/2022 8:33 AM EDT Inhaled Oxygen Concentration - - Weight 82.7 kg (182 lb 6.4 oz) 02/05/2022 8:33 AM EDT Height 178 cm (5' 10.08) 02/05/2022 8:33 AM EDT Body Mass Index 26.11 02/05/2022 8:33 AM EDT documented in this encounter Progress Notes Basilio Dumas RN - 02/05/2022 9:00 AM EDT INFUSION THERAPY ADMINISTRATION NOTES ?? DIAGNOSIS: AML s/p MUD allogenic BMT REASON FOR VISIT: Hydration SUBJECTIVE ?? Mr. Iverson is here for IV hydration. He continues to feel very weak, tired and shaky although better than yesterday.?? OBJECTIVE ?? LAB DATA: Drawn today at [facility] -WBC 5.3, Hg 7.6, Plt 58, ANC 3.98, Na 133, K+ 5.7(better than Mon.), BUN/Cr 63/3.1 (up from Mon.), mag 1.8. Hayley Palmer APRN notified of labs ?? Pre administration: Orders independently verified for drug name, route, and dosage by BASILIO DUMAS, RN and pharmacist on-site. ?? REACTIONS (DESCRIPTION, TIME, INTERVENTION AND EFFECTIVENESS) none ASSESSMENT ?? Mr. Iverson was awake, alert and tolerated treatment well. ?? PLAN ?? Return to clinic as scheduled. TCT Nurse navigator will check in on him later this week. Encouraged Herber to push his oral fluid intake. documented in this encounter Plan of Treatment Upcoming Encounters Date Type Specialty Care Team Description 02/18/2022 Infusion Hematology and Oncology 02/21/2022 Infusion Hematology and Oncology 02/24/2022 Appointment Hematology and Oncology 02/24/2022 Office Visit Hematology and Oncology Parviz Modi MD [facility] DR HEMATOLOGY/[place] [address] Miroslava Pelayo APRN [facility] DR HEMATOLOGY/[place] [address] 02/24/2022 Office Visit Wound Care 02/24/2022 Appointment Hematology and Oncology 02/26/2022 Office Visit Neurology Leni Bustamante MD [facility] DR NEUROLOGY DEPT. 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 documented in this encounter Additional Health Concerns Infection Onset Date Last Indicated Resolved Time History of C. difficileComment: C. diffiicile 08/20/2021 testing positive 05/25/21. documented as of this encounter Care Teams Formula Maker Relationship Specialty Start Date End Date Beatriz Maurice PA PCP - General Family Medicine 05/06/21 [address] [place] [address] documented as of this encounter
--- OUTSIDE RECORDS SUMMARY | 2022-02-14 11:06 | XMS_ITS | Encounter Summary ---
:1960 Author Organization [facility] [place] [address] Care Team Providers Name Role Phone Beatriz Maurice Primary Care Provider Encounter Details Date Type Department Care Team Description 01/22/2022 Telephone [place]ology [place] [facility]azmin Raimrez, RN [facility] [place] [phone] Social History Tobacco Use Types Packs/Day [...] [facility] DR HEMATOLOGY/[place] [address] Miroslava Pelayo APRN [facility] DR HEMATOLOGY/[place] [address] 02/24/2022 Office Visit Wound Care 02/24/2022 Appointment Hematology and Oncology 02/26/2022 Office Visit Neurology Leni Bustamante MD [facility] NEUROLOGY DEPT. [place], [place] [address] (Wo rk) documented as of this encounter Visit Diagnoses Not on filedocumented in this encounter Additional Health Concerns Infection Onset Date Last Indicated Resolved Time History of C. difficileComment: C. diffiicile 08/20/2021 testing positive 05/25/21. documented as of this encounter Care Teams General Lithographic Worker Relationship Specialty Start Date End Date Beatriz Maurice PA PCP - General Family Medicine 05/06/21 [address] [place] [address] documented as of this encounter
--- OUTSIDE RECORDS SUMMARY | 2022-02-14 11:06 | XMS_ITS | Encounter Summary ---
:1960 Author Organization [facility] [place] [address] Care Team Providers Name Role Phone Beatriz Maurice Primary Care Provider Reason for Visit Reason Onset Date Comments Prior Authorization 02/12/2022 Encounter Details Date Type Department Care Team Description 02/12/2022 Telephone Hematology and Oncology at [facility] [place] [phone] Social History Tobacco Use Types Packs/Day [...] this encounter Miscellaneous Notes Telephone Encounter - [facility] - 02/12/2022 8:17 AM EDT Medication Prior Authorization Medication name/dose/directions: Mg-Plus Protein 133mg Vancomycin 125mg caps Rationale for request: E83.42, Z94.81 Health plan: [place] Authorizing high school admissions representative name: [place] Faxed to health plan on: 02/12/22 via cm Mg-Plus Protein: CASTILLO: [id number] Vancomycin: CASTILLO: [id number] Health plan decision: Vancomycin: Approved MG-Plus Protein: Denied. This is a non-rebatable product and is not covered by [place] Medicaid. Tracking ID#: [id number] Quantity approved: Vancomycin: Authorization number: Vancomycin: [id number] Start date: 02/12/22 End date: 04/07/22 Patient notified? N Pharmacy notified? N documented in this encounter Plan of Treatment Upcoming Encounters Date Type Specialty Care Team Description 02/18/2022 Infusion Hematology and Oncology 02/21/2022 Infusion Hematology and Oncology 02/24/2022 Appointment Hematology and Oncology 02/24/2022 Office Visit Hematology and Oncology Parviz Modi MD [facility] DR HEMATOLOGY/[place] [address] Miroslava Pelayo APRN [facility] DR HEMATOLOGY/[place] [address] 02/24/2022 Office Visit Wound Care 02/24/2022 Appointment Hematology and Oncology 02/26/2022 Office Visit Neurology Leni Bustamante MD [facility] DR NEUROLOGY DEPT. [place], [place] [address] (Wo rk) documented as of this encounter Visit Diagnoses Not on filedocumented in this encounter Additional Health Concerns Infection Onset Date Last Indicated Resolved Time History of C. difficileComment: C. diffiicile 08/20/2021 testing positive 05/25/21. documented as of this encounter Care Teams Industrial Photographer Relationship Specialty Start Date End Date Beatriz Maurice PA PCP - General Family Medicine 05/06/21 [address] [place] [address] documented as of this encounter
--- OUTSIDE RECORDS SUMMARY | 2022-02-14 11:06 | XMS_ITS | Encounter Summary ---
:1960 Author Organization [facility] Address [facility] [place] [address] Care Team Providers Name Role Phone Beatriz Maurice Primary Care Provider Reason for Visit Reason Comments Follow-up Encounter Details Date Type Department Care Team Description 02/10/2022 Office Visit Hematology and Radha Modi MD [facility] DR HEMATOLOGY/[place] [address] S/P allogeneic bone marrow transplant; Oncology at [facility] Miroslava Pelayo [facility] DR HEMATOLOGY/[place] [address] Acute myeloid leukemia in remission; [facility] Hayley Macias, [facility] DR HEMATOLOGY[place] [address] Failure to thrive in adult; Drive Anemia of chronic disease; [place], [place] Stage 3 chronic kidney disease, unspecified whether stage 3a or 3b CKD; [address] Chronic deep vein thrombosis of right femoral vein [phone] Social History Tobacco Use Types Packs/Day Years [...] Mass Index 26.34 02/10/2022 9:30 AM EDT documented in this encounter Progress Notes Hayley Macias, HEYDI - 02/10/2022 9:45 AM EDT HEMATOLOGY/BMT CONSULTATION VISIT NOTE CHIEF COMPLAINT: Herber Iverson Jr. is a 61 y.o. male originally referred by Dr. Parviz Modi for evaluation of leukemia. He is seen in follow-up today. Data Review (From Recent Hospital discharge summary and the EMR) Admitted to [facility] 04/29/21 for leukocytosus. Discharged 04/30/21 04/30/21 CBC - 40.7/8.1 ANC - 3,210 ALC - 12.85 AMC [...] [place] [address]/10,000 ABL1 copies (135.80%.) 08/08/21 Discharged after reinduction with gilteritinib and venetoclax and initial clearance of CAR FRAMER leukemia. 08/12/21 LP - FELY 08/26/21 LP [...] VRE, severe mucositis, STACIE 12/13-12/17/21 Admission to [facility] for failure to thrive. 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 01/06/22 Admission for STACIE, possible PNA and altered mental status. Discharged 01/12. 02/03/22 RLE DVT by doppler - Ronnelluis 5 mg po BID started. Date NPM1 HSCT Day Source Total PMN [place] 05/21/21 43% 08/06/21 135% 09/12/21 1.95% 11/22/21 [...] that he went to a clinic in [facility]. He was evaluated for a UTI that was negative. 1 week ago today he saw his PCPwho ended up gatting a CBC showing abnormal counts and he was admitted to [facility]. Other than fatigue has had no fevers, chills or drenching sweats. Has lost a few lbs - <10. Appetite has been down recently. No bleeding or bruising. Was very actived when younger - played a lot of sports into his 40's. 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 He is accompanied today by his friend Kit. He remains on 30 mg Prednisone which he does not feel is making much difference in his appetite or energy level. Taste buds continue roly off Would not eat if he didn't need to. Drinking approx 64 ozs water / day. Not moving around a whole lot at home. Legs are swollen and Morales tries to get him to keep his feet elevated. He does not have compression stockings. Tries to do his PT exercises. Using a walker but has difficulty navigating steps. Ostomy working well with no watery diarrhea. Herber notes new neuropathy in the tips of his fingers with some tremors. Peripheral neuropathy remains bothersome but unchanged. No fevers or s/s infection. Remainder of ros neg Tacrolimus dose: 0.5 / 1mg Colostomy functioning. loperamide helping? - working well Fluid intake - 64 ozs most days F/C/S - none How doing since started pred? - okay. No significant difference Energy level ? - low as qbove Eating, appetite - much improved - eating 3 meals plus snacks. How doing with pills? - taking them W/o problem Diarrhea - stool has thickened up recently. New skin rashes? - no: diffusely dry skin over the Bleeding or melena ? - none Does he still have Idhifa at home? 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 Social - has a girlfriend and his boss Al as support. FH F - at ~70 of lung cancer - wsas a heavy smoker M - alive at 78 - no known health issues Siblings - No full siblings. 1/2 sister of AIDS, 1/2 brother is 51 - health unknown REVIEW OF SYSTEMS Constitutional --Energy level: very low --Pain: Paresthesias in lower extremities unchanged; new tingling in fingertips --Fevers/chills/sweats: No --Unexpected weight loss or gain: [...] --Rashes or petechia: No rashes Other ROS: neuropathy of the hands and feet ( feet long-standing; hands new ) PROBLEM LIST Patient Active Problem List Diagnosis [...] 800 mg, Oral, 2 TIMES DAILY ??? acyclovir (ZOVIRAX) 800 mg, Oral, 2 TIMES DAILY ??? apixaban (ELIQUIS) 5 mg, Oral, 2 TIMES DAILY ??? Colostomy Belt (Ostomy Belt Medium) Misc Dispense 1 Sensura Flako Belt #4237 per month. ??? flecainide (TAMBOCOR) 50 mg, Oral, 2 TIMES DAILY ??? fluconazole (DIFLUCAN) 200 mg, Oral, DAILY ??? lidocaine-prilocaine (EMLA) Cream Apply to mediport approximately 30 minutes prior to access. ??? loperamide (IMODIUM A-D) 2 mg, Oral, 3 TIMES DAILY ??? Magnesium Oxide-Mg AA Chelate (Mg-Plus) 133 mg Tablet 399 mg, Oral, 3 TIMES DAILY ??? metoproloL tartrate (LOPRESSOR) 25 mg, Oral, DAILY ??? ondansetron (ZOFRAN) 8 mg, Oral, EVERY 8 HOURS PRN ??? Ostomy Supplies Misc Dispense 2 boxes ( 10/box) of Adapt Barrier rings #7048 per month. ??? Ostomy Supplies Misc Dispense 2 boxes (10/box) of Sensura Flako Soft Convex One-piece Pouch #90723aof month. ??? Ostomy Supplies Misc Dispense 2 boxes (20/box) of Brava Elastic Barrier strips #[id number] per month. ??? Ostomy Supplies Misc Dispense 1 box (50/box) of a generic no-sting skin barrier wipe per month. ??? Ostomy Supplies Misc Dispense 2 boxes (10/box) of Adapt Convex Ring #57571 per month. Patient itto use one with each pouch change every other day. ??? Ostomy Supplies Powder Dispense 1 bottle of Adapt stoma powder #7906 every other month. ??? pantoprazole EC (PROTONIX) [...] a rash and is itchy. 01/27/22 pt reports the CHG for port access prep and the biopatch are ok. ??? Cefepime Encephalopathy PHYSICAL EXAM VITAL SIGNS: There were no vitals filed for this visit.GENERAL: Herber Iverson Jr. is a tired and chronically ill-appearing 61 y.o. year old male whose if pretty good spirits today ENT: Oropharynx dry with oral candidiasis ENDOCRINE: No thyromegaly palpated. CARDIOVASCULAR: Heart with regular rate and rhythm without S3,S4 or murmurs. No cyanosis or peripheral edema. PULMONARY: Lungs are clear to auscultation without rales, rhonchi or wheezing. GASTROINTESTINAL: Functioning ostomy with soft stool MUSCULOSKELETAL: bilateral LE edema w/ right > left SKIN: No rashes or petechiae. Diffusely dry, scaly skin LYMPH: No abnormal lymphadenopathy. NEUROLOGICAL: neuropathy of the bilateral LE and fingertips. Alert and oriented X 3 LABORATORY Recent Results (from the past 72 hour(s)) IgG Result Value Ref Range IgG 618 (L) 700 - 1,600 mg/dL Comprehensive metabolic panel (non-fasting) Result Value Ref Range Glucose Lvl 93 65 - 199 mg/dL BUN 39 (H) 10 - 20 mg/dL Creatinine 2.07 (H) 0.80 - 1.50 mg/dL Sodium 134 (L) 135 - 145 mmol/L Potassium 5.4 (H) 3.5 - 5.0 mmol/L Chloride 99 98 - 107 mmol/L CO2 20 (L) 22 - 31 mmol/L Anion Gap 15 5 - 15 mmol/L Calcium 9.0 8.5 - 10.5 mg/dL Total Protein 5.4 (L) 6.1 - 8.0 g/dL Albumin 3.6 3.2 - 5.2 g/dL AST 15 0 - 39 unit/L ALT 19 0 - 55 unit/L Alk Phos 70 40 - 130 unit/L Total Bilirubin 0.4 0.2 - 1.3 mg/dL Estimated GFR 36 (L) >=60 mL/min/1.73 m?? Magnesium Result Value Ref Range Magnesium 0.67 (L) 0.69 - 1.07 mmol/L Tacrolimus level Result Value Ref Range Tacrolimus Lvl 6.6 ng/mL Hemogram Result Value Ref Range WBC 5.4 4.0 - 9.5 x10(3)/mcL RBC 2.06 (L) 4.58 - 5.54 x10(6)/mcL Hemoglobin 7.4 (L) 13.7 - 16.5 g/dL Hematocrit 22.1 (L) 40.5 - 48.5 % MCV 107.3 (H) 82.9 - 93.1 fL MCH 35.9 (H) 27.5 - 32.1 pg MCHC 33.5 32.0 - 35.7 g/dL Platelets 64 (L) 145 - 357 x10(3)/mcL RDWSD 71.3 (H) 36.0 - 45.0 fL RDWCV 18.3 (H) 11.4 - 13.8 % MPV 11.1 7.6 - 12.9 fL nRBC % Auto 0.6 % nRBC Abs Auto 0.030 (H) 0.000 - 0.000 x10(3)/mcL Differential, Automated Result Value Ref Range Neutrophils % 86.1 % Neutr Abs (ANC) 4.65 1.70 - 6.10 x10(3)/mcL Lymphocytes % 6.9 % Lymphocytes Abs 0.4 (L) 0.9 - 3.2 x10(3)/mcL Monocytes % 5.9 % Monocyte Abs 0.3 0.3 - 0.9 x10(3)/mcL Eosinophils % 0.0 % Eosinophils Abs 0.0 0.0 - 0.4 x10(3)/mcL Basophils % 0.0 % Basophils Abs 0.0 0.0 - 0.1 x10(3)/mcL Immature Gran % 1.10 % Zara Gran Abs 0.06 (H) 0.00 - 0.04 x10(3)/mcL ABO/Rh Typing Result Value Ref Range ABORh Type O Neg Antibody screen Result Value Ref Range Ab Screen Interp Negative Expires at 2359 on: 02/13/2022 ABORH Recheck Status Result Value Ref Range ABORH Type Recheck Completed Type and Screen Validity Result Value Ref Range T&S only valid at [facility] Hosp RADIOLOGY - None ASSESSMENT & PLANS 1. [...] Currently no evidence to suggest AML recurrence --Day ~+60 bone marrow biopsy: FELY and >95% donor. NPM1 = 0.02% --Consideration of Gilteritinib maintenance post allo 2. S/P Colectomy -- Stool less watery better with mag plus protein --No recent leaks. --Following with stoma nurse team QO week. 3. Renal --Creatinine remains elevated requiring IV hydration. -- Fluconazole dose-reduced to 200 mg / day --Continue to hold Bactrim Renal Impairment Dosing ACV: CrCl <25 -> 400 mg BID; CrCl <10 -> 200 mg BID Bactrim: CrCl 15-30 -> 1 DS daily; <15 1 DS QOD or hold Fluconazole: CrCl <50 -> 200 mg daily 5. ID -- Restart clotrimazole troches for recurrent oral candidiasis --Fluconazole dosing decreased due to renal insufficiency [...] - Tacroilimus 5. Deconditioning --Herber is very deconditioned --Continue to use walker -- Home physical therapy twice weekly 6. DVT --New RLE DVT by doppler (02/03/22) --Eliquis 5 mg po BID sent to [facility] pharmacy to start later today. --Consider decreased dose to 2.5 mg BID at 3-6 months (may need repeat doppler) Recommended--support stockings. Prescription given to obtain at [facility] 7. Summary of Plans ?? Day ~+60 BM Bx - no evidence of disease, full donor chimerism ?? 1 liter saline today. ?? Decrease prednisone to 20 mg/day ?? Continue Eliquis 5 mg po BID ?? Recommended compression stockings---->prescription given ?? Continue Tacrolimus at current dose: 0.5 in a.m. 1mg in pm ?? Consider restarting Bactrim when renal function normalizes ?? Continue Fluconazole at 200 mg / day ?? Oral thrush -recurrent: Restart clotrimazole troches ?? Home physical therapy ?? Strongly encouraged Herber to move around more at home ?? Labs, fluids in [facility] next week ?? JENNIFER Teran following ?? Immunizations at 6 months ?? RTC 2 weeks HAYLEY MACIAS APRN Section of Hematology [facility] documented in this encounter Plan of Treatment Upcoming Encounters Date Type Specialty Care Team Description 02/18/2022 Infusion Hematology and Oncology 02/21/2022 Infusion Hematology and Oncology 02/24/2022 Appointment Hematology and Oncology 02/24/2022 Office Visit Hematology and Oncology Parviz Modi MD [facility] DR HEMATOLOGY/[place] [address] Miroslava Pelayo APRN [facility] HEMATOLOGY/[place] [address] 02/24/2022 Office Visit Wound Care 02/24/2022 Appointment Hematology and Oncology 02/26/2022 Office Visit Neurology Leni Bustamante MD [facility] NEUROLOGY DEPT. [place], [place] [address] (Wo rk) Scheduled Orders Name Type Priority Associated Diagnoses Order S chedule Basic Metabolic Panel Lab Routine S/P allogeneic bone Expected: 02/13/2022, (non-fasting) marrow transplan t Expires: 08/15/2022 Acute myeloid leukemia in remission Failure to thrive in adult Anemia of chronic disease Stage 3 chronic kidney disease, unspecified whether stage 3a or 3b CKD Folate, serum Lab STAT S/P allogeneic bone Expecte d: 02/13/2022, marrow transplan t Expires: 02/11/2023 Acute myeloid leukemia in remission Failure to thrive in adult Anemia of chronic disease Stage 3 chronic kidney disease, unspecified whether stage 3a or 3b CKD Vitamin B12 Lab STAT S/P allogeneic bone Expected : 02/13/2022, marrow transplan t Expires: 02/11/2023 Acute myeloid leukemia in remission Failure to thrive in adult Anemia of chronic disease Stage 3 chronic kidney disease, unspecified whether stage 3a or 3b CKD Methylmalonic acid, serum Lab Routine S/P allogeneic bone Expected: 02/13/2022, marrow transplan t Expires: 08/15/2022 Acute myeloid leukemia in remission Failure to thrive in adult Anemia of chronic disease Stage 3 chronic kidney disease, unspecified whether stage 3a or 3b CKD documented as of this encounter Visit Diagnoses Diagnosis S/P allogeneic bone marrow transplant Bone marrow replaced by transplant Acute myeloid leukemia in remission Failure to thrive in adult Adult failure to thrive Anemia of chronic disease Anemia of other chronic disease Stage 3 chronic kidney disease, unspecif ied whether stage 3a or 3b CKD Chronic deep vein thrombosis of right fe moral vein 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 difficileComment: C. diffiicile 08/20/2021 testing positive 05/25/21. documented as of this encounter Care Teams [employer] Relationship Specialty Start Date End Date Beatriz Maurice PA PCP - General Family Medicine 05/06/21 [address] [place] [address] documented as of this encounter
--- OUTSIDE RECORDS SUMMARY | 2022-02-14 11:06 | XMS_ITS | Encounter Summary ---
:1960 Author Organization [facility] [place] [address] Care Team Providers Name Role Phone Beatriz Maurice Primary Care Provider Encounter Details Date Type Department Care Team Description 02/03/2022 Telephone Hematology and Oncol ogy at [facility] [place] [address] Social History Tobacco Use Types Packs/Day [...] this encounter Miscellaneous Notes Telephone Encounter - Qi Zambrano RN - 02/03/2022 3:56 PM EDT RN received call at 1555 from Maeve with [facility] Lab reporting critical result(s) on patient: POTASSIUM: 6.[address] Modi and Anahi Winters RN of above results at 1557 Pat was seen in clinic today and is scheduled for infusion time. documented in this encounter Plan of Treatment Upcoming Encounters Date Type Specialty Care Team Description 02/18/2022 Infusion Hematology and Oncology 02/21/2022 Infusion Hematology and Oncology 02/24/2022 Appointment Hematology and Oncology 02/24/2022 Office Visit Hematology and Oncology Parviz Modi MD [facility] DR HEMATOLOGY/[place] [address] Miroslava Pelayo APRN [facility] DR HEMATOLOGY/[place] [address] 02/24/2022 Office Visit Wound Care 02/24/2022 Appointment Hematology and Oncology 02/26/2022 Office Visit Neurology Leni Bustamante MD [facility] DR NEUROLOGY DEPT. [place], [place] [address] (Wo rk) documented as of this encounter Visit Diagnoses Not on filedocumented in this encounter Additional Health Concerns Infection Onset Date Last Indicated Resolved Time History of C. difficileComment: C. diffiicile 08/20/2021 testing positive 05/25/21. documented as of this encounter Care Teams Agricultural Engineer Relationship Specialty Start Date End Date Beatriz Maurice PA PCP - General Family Medicine 05/06/21 [address] [place] [address] documented as of this encounter
--- OUTSIDE RECORDS SUMMARY | 2022-02-14 11:06 | XMS_ITS | Encounter Summary ---
:1960 Author Organization [facility] [place] [address] Care Team Providers Name Role Phone Beatriz Maurice Primary Care Provider Reason for Visit Reason Comments Follow-up Attention ileostomy Encounter Details Date Type Department Care Team Description 02/10/2022 Hospital Encounter Hematology and Attenti on to ileostomy [place] [address] Social History Tobacco Use Types Packs/Day [...] Date vancomycin (Vancocin) Take 1 capsule by 60 capsule 5 022 125 mg Capsule mouth 2 times daily. Magnesium Oxide-Mg AA Take 3 tablets by 270 tablet 3 022 Chelate (Mg-Plus) 133 mouth 3 times daily. mg Tablet rosuvastatin (Crestor) Take 1 tablet by mouth 90 tablet 3 0 02/10/2022 40 mg Tablet daily. clotrimazole (Mycelex) Take 1 tablet by mouth 50 tablet 1 0 02/10/2022 02/20/2022 10 mg Will 5 times daily for 10 days. For treatment of oral yeast infection. acyclovir (Zovirax) Take 1 tablet by mouth 60 tablet 11 01/16 800 mg Tablet 2 times daily. apixaban (Eliquis) 5 Take 1 tablet by mouth 60 tablet 5 mg Tablet 2 times daily. fluconazole (Diflucan) Take 1 tablet by mouth 30 tablet 5 0 02/03/2022 200 mg Tablet daily. pantoprazole EC Take 1 tablet by mouth 90 tablet 3 02/04/20 22 (Protonix) 40 mg daily. Tablet, Delayed Release (E.C.) loperamide (Imodium Take 1 capsule by 90 tablet 1 2 A-D) 2 mg Capsule mouth 3 times daily. Ostomy Supplies Dispense 2 boxes 20 each 01/27/2022 MiscIndications: () of Adapt Attention to ileostomy Convex Ring #56503 per month. Patient it to use one with each pouch change every other day. tacrolimus (Prograf) Take 2-3 capsules by 60 capsule 3 01/14 0.5 mg mouth 2 times daily. CapsuleIndications: Take 2 capsules (1mg) Acute myeloid leukemia in the morning. Take 3 in remission capsules (1.5mg) at night. predniSONE (Deltasone) Take 3 tablets by 90 tablet 2 2021 10 mg Tablet mouth every morning. Take with food. Colostomy Belt (Ostomy Dispense 1 Sensura Flako 1 each 11 0 12/17/2021 Belt Medium) [facility] Belt #4237 per month. metoprolol tartrate Take [...] Apply to mediport 30 g 0 10/04/19 (EMLA) Cream approximately 30 minutes prior to access. Ostomy Supplies Misc Dispense 2 boxes ( 20 each 022 10/box) of Adapt Barrier rings #7805 per month. Ostomy Supplies Powder Dispense 1 bottle of 28.3 g 5 11/2021 Adapt stoma powder #7906 every other month. Ostomy Supplies Misc Dispense 2 boxes 20 each 11 2 (10/box) of Sensura [place] Soft Convex One-piece Pouch #94025 per month. Ostomy Supplies Misc Dispense 2 boxes 40 each 2 (20/box) of Brava Elastic Barrier strips #[id number] per month. Ostomy Supplies Misc Dispense 1 box 50 each 08/20/2021 (50/box) of a generic no-sting skin barrier wipe per month. documented as of this encounter Progress Notes Serenity Frey RN - 02/10/2022 12:00 PM EDT Clinic Ostomy Progress Note 05/28/21??Procedure(s) (LRB): @ILEOSTOMY OR JEJUNOSTOMY, NON TUBE (WRVU 17.59) (N/A) @EXPLORATORY LAPAROTOMY, REOPENING OF RECENT (WRVU 17.63) (N/A)?? Admitted from 10/15/21-11/18/21 for a MUD allo HSCT. Admitted on 01/06/22??as a transfer from OSH for??worsening lethargy in the setting of presumed pneumonia being treated with cefapime.??Discharged 01/12/22 ?? 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 Surgeon:??Dr. Colby Walter Pouching System: Removed #32545 with regular adapt ring, EBS, and belt, replaced with #03093 with convex ring, EBS, and belt Stoma Appearance: red, budded, oval ~ 7/8 x 1 1/4 Peristomal Skin: healthy, intact Ostomy Output: it was apple-sauce consistency today, but patient stated that it varies between liquid and thick. He empties his pouch 2-3 times during the day and 2-3 times at night. He reports taking 1 tab of imodium 2-3 times per day. Today's visit, teaching and recommendations: Patient seen while receiving his infusion in . He stated that things are going okay. They are better than when he was changing his pouch daily due to leakage, but he continues to have to change his pouch every 2-3 days due to a leak. He isn't sleeping well because he is still nervous that he will leak in the bed. He gets up 2-3 times per night to emptythe pouch. When I discussed the tips on setting an alarm and taking 2 tabs of imodium instead of onebefore bed (we had discussed this a few appts back), he stated he tried the alarm technique but he is still anxious and he didn't try the imodium. I highly encouraged him to increase to 2 tabs of imodium at night and try the alarm again as it may take him a bit to retrain his brain not to be in fight or flight at night over the leakage. He stated most of his recent leaks are during the day and in thesame spot at 3 o'clock. The pouch I removed today was placed yesterday and had a great seal. His peristomal skin is in good condition, so I am unsure what factor continues to cause him leakage. He doesnot have high output. His GF is cutting the wafer and helping him center it and does a great job. I will consult with my colleagues and when we see patient on the of this month, we can trial a different pouching system. I hesitate to change anything today as I want to make sure we do not go back to him leaking once a day and want to discuss with my colleagues 1st. F/u: 1-2 weeks, has an appt with us on 02/24/22 documented in this encounter Plan of Treatment Upcoming Encounters Date Type Specialty Care Team Description 02/18/2022 Infusion Hematology and Oncology 02/21/2022 Infusion Hematology and Oncology 02/24/2022 Appointment Hematology and Oncology 02/24/2022 Office Visit Hematology and Oncology Parviz Modi MD [facility] HEMATOLOGY/[place] [address] Miroslava Pelayo APRN [facility] HEMATOLOGY/[place] [address] 02/24/2022 Office Visit Wound Care 02/24/2022 Appointment Hematology and Oncology 02/26/2022 Office Visit Neurology Leni Bustamante MD [facility] NEUROLOGY DEPT. [place], [place] [address] (Wo rk) documented as of this encounter Visit Diagnoses Diagnosis Attention to ileostomy documented in this encounter Additional Health Concerns Infection Onset Date Last Indicated Resolved Time History of C. difficileComment: C. diffiicile 08/20/2021 testing positive 05/25/21. documented as of this encounter Care Teams [employer] Commander Relationship Specialty Start Date End Date Beatriz Maurice PA PCP - General Family Medicine 05/06/21 [address] [place] [address] documented as of this encounter
--- OUTSIDE RECORDS SUMMARY | 2022-02-14 11:06 | XMS_ITS | Encounter Summary ---
:1960 Author Organization [facility] [place] [address] Care Team Providers Name Role Phone Beatriz Maurice Primary Care Provider Encounter Details Date Type Department Care Team Description 02/03/2022 Tech Visit Vascular Lab at [facility], S/P [place] [facility] [place] [address] Social History Tobacco Use Types Packs/Day [...] 02/24/2022 Office Visit Hematology and Oncology Parviz Osullivan MD [facility] DR HEMATOLOGY/[place] [address] Miroslava Pelayo APRN [facility] DR HEMATOLOGY/[place] [address] 02/24/2022 Office Visit Wound Care 02/24/2022 Appointment Hematology and Oncology 02/26/2022 Office Visit Neurology Leni Bustamante MD [facility] NEUROLOGY DEPT. [place], [place] [address] (Wo rk) documented as of this encounter Procedures Procedure Name Priority Date/Time Associated Diagnosis Comme nts DUPLEX FOR DVT, Routine 02/03/2022 9:42 AM S/P allogeneic bone Results for this LEG, UNILAT EDT marrow transplant procedure are in the results section. documented in this encounter Results Duplex for DVT, Leg, Unilat (02/03/2022 9:42 AM EDT) Component Value Ref Test Analysis Performed At [facility] Range Method Time Signature VB Text Department: Vascular Surgery Lab VASCUBASE Report Patient: [id number] (ANGELICA IVERSON) CPT: 69938 Referring Physician: PARVIZ OSULLIVAN ?? Phone: Indications: ??RIGHT LE swelling [...] these preliminary f indings. Electronically Signed by: MARIAA KHAN on 2022-02-05 09:04:21 AM VB Text End of Report VASCUBASE Report Specimen (Source) Anatomical Collection Method Collection Time Re ceived Time Location / / Volume Laterality 02/03/2022 9:42 AM EDT Parviz Osullivan MD VASCULAR ORDERABLES Performing Organization Address City/State/ZIP Code Phon e Number VASCUBASE documented in this encounter Visit Diagnoses Diagnosis 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 difficileComment: C. diffiicile 08/20/2021 testing positive 05/25/21. documented as of this encounter Care Teams Transporter Radiology Relationship Specialty Start Date End Date Beatriz Maurice PA PCP - General Family Medicine 05/06/21 [address] [place] [address] documented as of this encounter
--- OUTSIDE RECORDS SUMMARY | 2022-02-14 11:06 | XMS_ITS | Encounter Summary ---
:1960 Author Organization [facility] Address [facility] [place] [address] Care Team Providers Name Role Phone Beatriz Maurice Primary Care Provider Encounter Details Date Type Department Care Team Description 02/10/2022 Orders Only Hematology and Oncology at [facility], Miroslava Spivey APRN [facility] narvaez HEMATOLOGY/[place] [address] DEPT. [phone] [place], [place] [address] (Wo rk) Social History Tobacco [...] Visit Hematology and Oncology Parviz Modi MD [facility] DR HEMATOLOGY/[place] [address] Miroslava Pelayo APRN [facility] HEMATOLOGY/[place] [address] 02/24/2022 Office Visit Wound Care 02/24/2022 Appointment Hematology and Oncology 02/26/2022 Office Visit Neurology Leni Bustamante MD [facility] NEUROLOGY DEPT. [place], [place] [address] (Wo rk) documented as of this encounter Visit Diagnoses Not on filedocumented in this encounter Additional Health Concerns Infection Onset Date Last Indicated Resolved Time History of C. difficileComment: C. diffiicile 08/20/2021 testing positive 05/25/21. documented as of this encounter Care Teams Wire Border Assembler Relationship Specialty Start Date End Date Beatriz Maurice PA PCP - General Family Medicine 05/06/21 [address] [place] [address] documented as of this encounter
--- OUTSIDE RECORDS SUMMARY | 2022-02-14 11:06 | XMS_ITS | Encounter Summary ---
:1960 Author Organization [facility] [place] [address] Care Team Providers Name Role Phone Beatriz Maurice Primary Care Provider Encounter Details Date Type Department Care Team Description 01/30/2022 Telephone Hematology and Oncology [place] [address] [place] [address] Social History Tobacco Use Types Packs/Day [...] Telephone Encounter - [address] - 01/30/2022 8:15 AM EDT Call placed to pt, VM left with call back information. 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 [address] Miroslava Pelayo APRN [facility] HEMATOLOGY/[place] [address] 02/24/2022 Office Visit Wound Care 02/24/2022 Appointment Hematology and Oncology 02/26/2022 Office Visit Neurology Leni Bustamante MD [facility] NEUROLOGY DEPT. [place], [place] [address] (Wo rk) documented as of this encounter Visit Diagnoses Not on filedocumented in this encounter Additional Health Concerns Infection Onset Date Last Indicated Resolved Time History of C. difficileComment: C. diffiicile 08/20/2021 testing positive 05/25/21. documented as of this encounter Care Teams Fruit Thinner Machine Operator Relationship Specialty Start Date End Date Beatriz Maurice PA PCP - General Family Medicine 05/06/21 [address] [place] [address] documented as of this encounter
--- OUTSIDE RECORDS SUMMARY | 2022-02-14 11:06 | XMS_ITS | Encounter Summary ---
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 ?? At the request of Hayley Palmer APRN, I called Herber and his SO kunal Nielsen let them know to decrease his daily oral prednisone from 30mg to 20mg starting immediately. ?? We discussed the PA in process for vancomycin and Mag plus protein. I sent Morales a link to Mag plus protein OTC through [employer] as she has an account and plans to order it online. ?? We discussed the follow up plan moving forward. Herber will have labs/hydration in [facility] this , next Thursday (due to February 17 hol) and Thursday. We will see him back at [facility] on 02/24/22. ?? Herber will have home PT/OT measure his legs for ABISAI stockings. A: Herber and Morales both verbalized understanding of the plan. P: as outlined above Continue to provide supportive care documented in this encounter Plan of Treatment Upcoming Encounters Date Type Specialty Care Team Description 02/18/2022 Infusion Hematology and Oncology 02/21/2022 Infusion Hematology and Oncology 02/24/2022 Appointment Hematology and Oncology 02/24/2022 Office Visit Hematology and Oncology Parviz Modi MD [facility] [address] HEMATOLOGY/[place] [address] Miroslava Pelayo APRN [facility] [address] HEMATOLOGY/[place] [address] 02/24/2022 Office Visit Wound Care 02/24/2022 Appointment Hematology and Oncology 02/26/2022 Office Visit Neurology Leni Bustamante MD [facility] DR NEUROLOGY DEPT. [place], [place] [address] (Wo rk) documented as of this encounter Visit Diagnoses Not on filedocumented in this encounter Additional Health Concerns Infection Onset Date Last Indicated Resolved Time History of C. difficileComment: C. diffiicile 08/20/2021 testing positive 05/25/21. documented as of this encounter Care Teams Compressor Station Engineer Relationship Specialty Start Date End Date Beatriz Maurice PA PCP - General Family Medicine 05/06/21 [address] [place] [address] documented as of this encounter
--- OUTSIDE RECORDS SUMMARY | 2022-02-14 11:06 | XMS_ITS | Encounter Summary ---
:1960 Author Organization [facility] Address [facility] [place] [address] Care Team Providers Name Role Phone Beatriz Maurice Primary Care Provider Encounter Details Date Type Department Care Team Description 02/03/2022 Hospital Encounter Hematology and Hypomag nesemia; Oncology at [facility] STACIE (acute kidney injury); [facility] Thrombocy topenia; Drive Anemia in neoplastic disease ; [place] [address] Weakness acquired in ICU; [phone] Debility; H/O Clostridium difficile infection; Colostomy in pl k[address]; Acute leukemia in remission; S/P allogeneic bone marrow transplant; Dehydration Social History Tobacco Use Types Packs/Day Years [...] 2 boxes 20 each 11 01/27/2022 MiscIndications: () of [employer] Attention to ileostomy Convex Ring #[id number] per month. Patient it to use one [...] 1 each 11 0 12/17/2021 Belt Medium) [facility] Belt #[id number] per month. metoprolol tartrate Take [...] 30 minutes prior to access. Ostomy Supplies [facility] Dispense 2 boxes ( 20 each 022 10/box) of [employer] Barrier rings #[id number] per month. Ostomy Supplies Powder Dispense 1 bottle of 28.3 g 5 11/2021 Adapt stoma powder #7906 every other month. [facility] Supplies [facility] Dispense 2 boxes 20 each 11 2 (10/box) of [employer] [place] Soft Convex One-piece Pouch #[id number] per month. Ostomy Supplies Misc Dispense 2 boxes 40 each 2 (20/box) of Brava Elastic Barrier strips #[id number] per month. Ostomy Supplies [facility] Dispense 1 box 50 each 08/20/2021 (50/box) of a generic no-sting skin barrier wipe per month. rosuvastatin (Crestor) Take 1 tablet by mouth 90 tablet 3 0 11/15/2021 02/10/2022 40 mg Tablet daily. documented as of this encounter Progress Notes Katie Hinds RN - 02/03/2022 7:58 AM EDT Patient Name: Herber Iverson Jr. Patient Age: 61 y.o. Birthdate: 1960 Admit date: 02/03/2022 Attending Physician: No att. providers found Access visit. See MAR and/or flowsheet. documented in this encounter Plan of Treatment Upcoming Encounters Date Type Specialty Care Team Description 02/18/2022 Infusion Hematology and Oncology 02/21/2022 Infusion Hematology and Oncology 02/24/2022 Appointment Hematology and Oncology 02/24/2022 Office Visit Hematology and Oncology Parviz Modi MD [facility] DR HEMATOLOGY/[place] [address] Miroslava Pelayo APRN [facility] DR HEMATOLOGY/[place] [address] 02/24/2022 Office Visit Wound Care 02/24/2022 Appointment Hematology and Oncology 02/26/2022 Office Visit Neurology Leni Bustamante MD [facility] DR NEUROLOGY DEPT. [place], [place] [address] (Wo rk) documented as of this encounter Procedures Procedure Name Priority Date/Time Associated Comments Diagnosis TYPE AND SCREEN STAT 02/03/2022 7:50 AM Result s for this VALIDITY EDT procedure are i n the results section. ABORH RECHECK STATUS STAT 02/03/2022 7:50 AM R esults for this EDT procedure are i n the results section. ANTIBODY SCREEN MANUAL STAT 02/03/2022 7:50 AM Results for this EDT procedure are i n the results section. ABORH TYPE MANUAL STAT 02/03/2022 7:50 AM Resu lts for this EDT procedure are i n the results section. HEMOGRAM STAT 02/03/2022 7:50 AM Hypomagnesemi a Results for this EDT STACIE (acute kidney procedure are in injury) the results H/O Clostridium section. 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 in neoplastic disea se Weakness acquired in ICU S/P allogeneic bone marrow transplan t Dehydration DIFFERENTIAL, STAT 02/03/2022 7:50 AM Hypomagnesemi a Results for this AUTOMATED EDT STACIE (acute kidney procedure are in injury) the results H/O Clostridium section. 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 in neoplastic disea se Weakness acquired in ICU S/P allogeneic bone marrow transplan t Dehydration HC PCH EBV QUANT Routine 02/03/2022 7:50 AM S/P allogeneic bon e Results for this [facility] EDT marrow transplant procedure are in the results section. HC FK-506 (TACROLIMUS) STAT 02/03/2022 7:50 AM Hypoma gnesemia Results for this EDT STACIE (acute kidney procedure are in injury) the results Thrombocytopenia section. Anemia in neoplastic disea se Weakness acquired in ICU Debility HC CMV QUANT Routine 02/03/2022 7:50 AM S/P allogeneic bone Re sults for this EDT marrow transplant procedure are in the results section. HC CBC,PLT & AUTO DIFF STAT 02/03/2022 7:50 AM Hypoma gnesemia EDT STACIE (acute kidney injury) H/O Clostridium 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 in neoplastic disea se Weakness acquired in ICU S/P allogeneic bone marrow transplan t Dehydration HC MAGNESIUM, SERUM Routine 02/03/2022 7:50 AM Hypomagne semia Results for this EDT STACIE (acute kidney procedure are in injury) the results H/O Clostridium section. 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 in neoplastic disea se Weakness acquired in ICU S/P allogeneic bone marrow transplan t Dehydration HC IGG, SERUM Routine 02/03/2022 7:50 AM S/P allogeneic bone R esults for this EDT marrow transplant procedure are in the results section. COMPREHENSIVE Routine 02/03/2022 7:50 AM Hypomagnesemi a Results for this METABOLIC PANEL EDT STACIE (acute kidney procedu re are in (NON-FASTING) injury) the results H/O Clostridium section. 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 in neoplastic disea se Weakness acquired in ICU S/P allogeneic bone marrow transplan t Dehydration documented in this encounter Results Type and Screen Validity (02/03/2022 7:50 AM EDT) [facility] Method Time Signature T&S only valid [facility] LABORATORY Comment: This Type and Screen result is only valid at the [facility] Hospital Specimen Anatomical Collection Method Collection Time Receive d Time (Source) Location / / Volume Laterality Blood Venous Draw / 02/03/2022 7:50 AM 02/04/20 22 8:01 Unknown EDT AM EDT Resulting Agency Comment Spec In Lab Parviz Modi MD BLOOD BANK ORDERABLES Performing Organization Address City/[facility]/ZIP Code Phon e Number [address] ABORH Recheck Status (02/03/2022 7:50 AM EDT) [facility] Method Time Signature ABORH Type Completed [facility] LABORATORY Specimen Anatomical Collection Method Collection Time Receive d Time (Source) Location / / Volume Laterality Blood Venous Draw / 02/03/2022 7:50 AM 02/04/20 22 8:01 Unknown EDT AM EDT Resulting Agency Comment Spec In Lab Parviz Modi MD BLOOD BANK ORDERABLES Performing Organization Address City/[facility]/[place] [address] Antibody screen manual (02/03/2022 7:50 AM EDT) [facility] Signature AB Screen Negative [facility] LABORATORY Specimen Anatomical Collection Method Collection Time Receive d Time (Source) Location / / Volume Laterality Blood Venous Draw / 02/03/2022 7:50 AM 02/04/20 22 8:01 Unknown EDT AM EDT Resulting Agency Comment Spec In Lab Parviz Modi MD BLOOD BANK ORDERABLES Performing Organization Address City/[facility]/[place] [address] ABORh Type Manual (02/03/2022 7:50 AM EDT) Patholo gist Method Time Signature Expires at 02/06/2022 [facility] 1426 on: [facility] LABORATORY ABORh Type O Neg [facility] LABORATORY Specimen Anatomical Collection Method Collection Time Receive d Time (Source) Location / / Volume Laterality Blood Venous Draw / 02/03/2022 7:50 AM 02/04/20 8:01 Unknown EDT AM EDT Resulting Agency Comment Spec In Lab Parviz Modi MD BLOOD BANK ORDERABLES Performing Organization Address City/State/[place] [address] (ABNORMAL) Differential, Automated (02/03/2022 7:50 AM EDT) athologist Signature Neutrophils % 77.6 % [facility] LABORATORY Neutr Abs (ANC) 5.83 1.70 - [facility] 6.10 [facility] x10(3)/[facility] LABORATORY Lymphocytes % 14.4 % [facility] LABORATORY Lymphocytes Abs 1.1 0.9 - 3.2 [facility] x10(3)/[facility] LABORATORY Monocytes % 6.5 % [facility] LABORATORY Monocyte Abs 0.5 0.3 - 0.9 [facility] x10(3)/[facility] LABORATORY Eosinophils % 0.3 % [facility] LABORATORY Eosinophils Abs 0.0 0.0 - 0.4 [facility] x10(3)/[facility] LABORATORY Basophils % 0.1 % [facility] LABORATORY Basophils Abs 0.0 0.0 - 0.1 [facility] x10(3)/[facility] LABORATORY Immature Gran % 1.10 % [facility] LABORATORY Comment: Immature granulocytes(IG's)percentage an d absolute count will include metamyelocytes, myelocytes, and promyelo cytes. Blood smears from CBCs yielding IG's will be scanned manually for concor dance. If this scan disagrees with the automated IG or if promyelocytes are not ed, a manual differential will be performed. Zara Gran Abs 0.08 (H) 0.00 - 0.04 x10(3)/[facility] LABORATORY Specimen Anatomical Collection Method Collection Time Receive d Time (Source) Location / / Volume Laterality Blood 02/03/2022 7:50 AM 2 9:05 EDT AM EDT Resulting Agency Comment Spec In Lab Parviz Modi MD HEMATOLOGY ORDERABLES Performing Organization Address City/State/[place] [address] (ABNORMAL) Hemogram (02/03/2022 7:50 AM EDT) [facility] gist Method Time Signature WBC 7.5 4.0 - 9.5 [facility] x10(3)/[facility] LABORATORY RBC 2.24 (L) 4.58 - [facility]54 [facility] x10(6)/[facility] LABORATORY Hemoglobin 8.3 (L) 13.7 - [facility] 16.5 g/dL [facility] LABORATORY Hematocrit 23.7 (L) 40.5 - [facility] 48.5 % [facility] LABORATORY MCV 105.8 (H) 82.9 - [facility] 93.1 [facility] LABORATORY MCH 37.1 (H) 27.5 - [facility] 32.1 pg [facility] LABORATORY MCHC 35.0 32.0 - [facility] 35.7 g/dL [facility] LABORATORY Platelets 66 (L) 145 - 357 [facility] x10(3)/[facility] LABORATORY RDWSD 70.9 (H) 36.0 - [facility] 45.0 [facility] LABORATORY RDWCV 19.0 (H) 11.4 - [facility] ARASELI 13.8 % [facility] LABORATORY MPV 11.7 7.6 - 12.9 [facility] LABORATORY nRBC % Auto 0.9 % [facility] LABORATORY nRBC Abs Auto 0.070 (H) 0.000 - [facility]ELI 0.000 [facility] x10(3)/[facility] LABORATORY Specimen Anatomical Collection Method Collection Time Receive d Time (Source) Location / / Volume Laterality Blood 02/03/2022 7:50 AM 2 9:05 EDT AM EDT Resulting Agency Comment Spec In Lab Parviz Modi MD HEMATOLOGY ORDERABLES Performing Organization Address City/State/ZIP Code Phon e Number JIA [address] CMV PCR, Quantitative (02/03/2022 7:50 AM EDT) [facility] Time Signature CMV Quant Not Detected Not Detected [facility] (Numeric) IU/mL [facility] LABORATORY Comment: Indication for Study: Monitoring CMV DNA Analysis: The jasmeet CMV test is an in vi tro nucleic acid amplification tests using real-time polymerase chain reactio n (PCR) assay for the quantitative measurement of cytomegalovirus (CMV) DNA in human EDTA plasma. Sample: EDTA plasma Method: jasmeet CMV test used with the 680 0 platform ([employer]) Linear Range: 34.5 - 1.0 x 10^7 IU/mL (1 .54 ? 7.00 log IU/mL) Note: The Celia jasmeet CMV assay has been approved by the U.S. Food and Drug Administration for clinical testing. Specimen Anatomical Collection Method Collection Time Receive d Time (Source) Location / / Volume Laterality Blood 02/03/2022 7:50 AM 2 EDT 11:18 AM EDT Resulting Agency Comment Spec In Lab Parviz Modi MD IMMUNOLOGY ORDERABLES Performing Organization Address City/[facility]/ZIP [place] [address] (ABNORMAL) EBV PCR Quantitative (02/03/2022 7:50 AM EDT) [facility] Method Time Signature EBV DNA BY <35 (A) Undetected [facility] [place] PCR IU/mL [facility] LABORATORY Comment: Result in log IU/mL is <1.54. EBV DNA is detected, but level present i s <35 IU/mL (<1.54 log IU/mL). This assay cannot accurately quantify EBV DNA below this level. ADDITIONAL INFORMATIO N The quantification range of this assay i s 35 to 100,000,000 IU/mL (1.54 log to 8.00 log IU/mL). Test ing was performed using the jasmeet EBV test ([employer] with the jasmeet 6800 System. Test Performed by: [facility] [address] [id number] Guest Services Associate: Randal Aparicio M.D. Ph. D.; CLIA# [id number] Specimen Anatomical Collection Method Collection Time Receive d Time (Source) Location / / Volume Laterality Blood 02/03/2022 7:50 AM 2 9:44 EDT AM EDT Resulting Agency Comment Spec In Lab Parviz Modi MD IMMUNOLOGY ORDERABLES Performing Organization Address City/State/ZIP Code Phon e Number [address] (ABNORMAL) IgG (02/03/2022 7:50 AM EDT) athologist Signature IgG 689 (L) 700 - 1,600 [facility] mg[facility]dL [facility] LABORATORY Comment: Pediatric Reference Intervals obtained f rom the Caliper Reference Interval project. http://[email or web address].ca/caliperp roject/index.html Specimen Anatomical Collection Method Collection Time Receive d Time (Source) Location / / Volume Laterality Blood 02/03/2022 7:50 AM 2 9:05 EDT AM EDT Resulting Agency Comment Spec In Lab Parviz Modi MD IMMUNOLOGY ORDERABLES Performing Organization Address City/State/[place] [address] (ABNORMAL) Comprehensive metabolic panel (non-fasting) (02/03/2022 7:50 AM EDT) athologist Signature Glucose Lvl 92 65 - 199 [facility] mg/dL [facility] LABORATORY Comment: Diabetes: >=200 mg/dL plus symp toms BUN 61 (H) 10 - 20 mg/dL [facility] LABORATORY Creatinine 2.67 (H) 0.80 - 1.50 mg/dL [facility] LABORATORY Sodium 130 (L) 135 - 145 mmol/L [facility] LABORATORY Potassium 6.1 (Critical) 3.5 - 5.0 mmol/L [facility] LABORATORY Comment: Called by: , Read back by: Angélica Ramirez alma, Date/Time:02/03/22 10:07. Please note: ??Patients with WBC >100,00 0 may have falsely elevated Potassium levels. ??For accurate Potassium quantif ication in these patients send serum separator tube (gold top) for subsequent determinations. ??Contact the Clinical Chemistry Laboratory if there are any qu estions. Chloride 97 (L) 98 - 107 mmol/L [facility] LABORATORY CO2 19 (L) 22 - 31 mmol/L [facility] LABORATORY Anion Gap 14 5 - 15 mmol/L [facility] LABORATORY Calcium 9.3 8.5 - 10.5 mg/dL [facility] LABORATORY Total Protein 5.7 (L) 6.1 - 8.0 g/dL [facility] LABORATORY Albumin 3.7 3.2 - 5.2 g/dL [facility] LABORATORY AST 16 0 - 39 unit/L [facility] LABORATORY ALT 18 0 - 55 unit/L [facility] LABORATORY Alk Phos 85 40 - 130 unit/L [facility] LABORATORY Total Bilirubin 0.4 0.2 - 1.3 mg/dL [facility] LABORATORY Estimated GFR 26 (L) >=60 mL/min/1.73 m?? [facility] LABORATORY Comment: This patient's estimated [...] Volume Laterality Blood 02/03/2022 7:50 AM 2 9:05 EDT AM EDT Resulting Agency Comment Spec In Lab Parviz Modi MD CHEMISTRY ORDERABLES Performing Organization Address City/[facility]/ZIP Code Phon e Number [address] Magnesium (02/03/2022 7:50 AM EDT) P athologist Signature Magnesium 0.74 0.69 - 1.07 [facility] mmol/L [facility] LABORATORY Specimen Anatomical Collection Method Collection Time Receive d Time (Source) Location / / Volume Laterality Blood 02/03/2022 7:50 AM 2 9:05 EDT AM EDT Resulting Agency Comment Spec In Lab Parviz Modi MD CHEMISTRY ORDERABLES Performing Organization Address [facility] Phon e Number [address] Tacrolimus level (02/03/2022 7:50 AM EDT) P athologist Signature Tacrolimus Lvl 12.1 ng/mL [facility] LABORATORY Comment: Trough therapeutic range [...] Volume Laterality Blood 02/03/2022 7:50 AM 2 9:05 EDT AM EDT Resulting Agency Comment Spec In Lab Parviz Modi MD CHEMISTRY ORDERABLES Performing Organization Address City/[facility]/ZIP [facility] Phon e Number [address] documented in this encounter Visit Diagnoses Diagnosis Hypomagnesemia Disorders of magnesium metabolism STACIE (acute kidney injury) Acute kidney failure, unspecified Thrombocytopenia Thrombocytopenia, unspecified Anemia in neoplastic disease Weakness acquired in ICU Debility Debility, unspecified H/O Clostridium difficile infection Personal history of other infectious and parasitic disease 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 status Acute leukemia in remission Acute leukemia of unspecified cell type in remission S/P allogeneic bone marrow transplant Bone marrow replaced by transplant Dehydration documented in this encounter Administered Medications Inactive Administered Medications - up to 3 most recent administrations Medication Order MAR Action Action Date Dose Rate Site sodium chloride 0.9 % (flush) (BD Given 02/03/2022 7:58 AM EDT 2 0 mLs PosiFlush Normal Saline 0.9) flush 10-20 mL 10-20 mL, Intravenous, EVERY 1 MIN PRN, Starting on Thu02/03/22 at 0735, Until Tu02/04/22 at 0433, [place], Routine documented in this encounter Additional Health Concerns Infection Onset Date Last Indicated Resolved Time History of C. difficileComment: C. diffiicile 08/20/2021 testing positive 05/25/21. documented as of this encounter Care Teams Hospital Recruiter Relationship Specialty Start Date End Date Beatriz Maurice PA PCP - General Family Medicine 05/06/21 [address] [place] [address] documented as of this encounter
--- OUTSIDE RECORDS SUMMARY | 2022-02-14 11:06 | XMS_ITS | Encounter Summary ---
:1960 Author Organization [facility] Address [facility] [place] [address] Care Team Providers Name Role Phone Beatriz Maurice Primary Care Provider Encounter Details Date Type Department Care Team Description 01/28/2022 Orders Only Hematology and Oncology Parviz Modi MD at [facility] Catie narvaez HEMATOLOGY/[place] [address] [place] [address] [phone] (Wo rk) Social History Tobacco Use Types [...] Visit Hematology and Oncology Parviz Modi MD [facility] DR HEMATOLOGY/[place] [address] Miroslava Pelayo APRN [facility] HEMATOLOGY/[place] [address] 02/24/2022 Office Visit Wound Care 02/24/2022 Appointment Hematology and Oncology 02/26/2022 Office Visit Neurology Leni Bustamante MD [facility] NEUROLOGY DEPT. [place], [place] [address] (Wo rk) documented as of this encounter Visit Diagnoses Not on filedocumented in this encounter Additional Health Concerns Infection Onset Date Last Indicated Resolved Time History of C. difficileComment: C. diffiicile 08/20/2021 testing positive 05/25/21. documented as of this encounter Care Teams Castings Drafter Relationship Specialty Start Date End Date Beatriz Maurice PA PCP - General Family Medicine 05/06/21 [address] [place] [address] documented as of this encounter
--- OUTSIDE RECORDS SUMMARY | 2022-02-14 11:06 | XMS_ITS | Encounter Summary ---
:1960 Author Organization [facility] [place] [address] Care Team Providers Name Role Phone AjithBeatriz patricia Primary Care Provider Reason for Referral Diagnostic Test (Routine) - New Request Specialty Diagnoses / Procedures Referred By Contact Refer red To Contact Diagnoses S/P allogeneic bone marrow transplant Dilshad Osullivan MD [facility] Vascular Lab 3v Procedures Duplex for DVT, Leg, Unilat [facility] HEMATOLOGY/[place] [address] [place] [address] Referral ID Status Reason Start Expiration Visits Visits Date Date Requested Authorized [id number] New Request Specialty 02/03/2022 02/03/2023 1 1 Service Requested Reason for Visit Reason Comments Follow-up Encounter Details Date Type Department Care Team Description 02/03/2022 Office Visit Hematology and Radha Osullivan MD [facility] HEMATOLOGY/[place] [address] STACIE (acute kidney injury) (Primary Dx); Oncology at [facility] Miroslava Pelayo APRN [facility] HEMATOLOGY/[place] [address] Hypomagnesemia; [facility] Hayley Palmer APRN [facility] HEMATOLOGY-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; Thrombocytopeni a; Colostomy in pl kena Social History Tobacco Use Types Packs/Day Years [...] Sign Reading Time Taken Comments Blood Pressure 117/84 02/03/2022 8:03 AM EDT Pulse 88 02/03/2022 8:03 AM EDT Temperature 36.7 ??C (98.1 ??F) 02/03/2022 8:03 AM EDT Respiratory Rate 17 02/03/2022 8:03 AM EDT Oxygen Saturation 96% 02/03/2022 8:03 AM EDT Inhaled Oxygen Concentration - - Weight 82.8 kg (182 lb 9.6 oz) 02/03/2022 8:03 AM with shoes EDT Height 178 cm (5' 10.08) 02/03/2022 8:03 AM with shoes EDT Body Mass Index 26.14 02/03/2022 8:03 AM EDT documented in this encounter Progress Notes Dilshad Osullivan MD - 02/03/2022 8:45 AM EDT HEMATOLOGY/BMT CONSULTATION VISIT NOTE CHIEF COMPLAINT: Angelica Iverson Jr. is a 61 y.o. male originally referred by Dr. Dilshad Osullivan for evaluation of leukemia. He is seen in follow-up today. Data Review (From Recent Hospital discharge summary and the EMR) Admitted to [facility] 04/29/21 for leukocytosus. Discharged 04/30/21 04/30/21 CBC - 40.7/8.1 ANC - 3,210 ALC - 12.85 AMC - 13.660 LDH - 655 COVIC-19 - NEG 05/06/21 admission for likely AML BM Bx - >95% cellular wit >90% myeloblasts CG - normal male karyotype NGS - + mutations in NPM1, FLT3 ??ITD and DNM3TA 05/08/21 D1 7&3 + midostauren induction 105 Day +14 BM Bx - hypocellular, <5% [...] [place] [address]/10,000 ABL1 copies (135.80%.) 08/08/21 Discharged after reinduction with gilteritinib and venetoclax and initial clearance of [employer] leukemia. 08/12/21 LP - FELY 08/26/21 LP [...] VRE, severe mucositis, STACIE 12/13-12/17/21 Admission to [facility] for failure to thrive. 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 01/06/22 Admission for STACIE, possible PNA and altered mental status. Discharged 01/12. 02/03/22 RLE DVT by doppler - Eliqiuis 5 mg po BID started. Date NPM1 HSCT Day Source Total PMN [place] 05/21/21 43% 08/06/21 135% 09/12/21 1.95% 11/22/21 +31 PB >95% na na 12/16/21 +55 PB >95% na na 12/23/21 0.02% +62 BM >95% ORIGINAL HISTORY OF PRESENT ILLNESS Angelica Iverson Jr. dates the onset of his illness to earlier this summer. He has felt more tired than usual but attributed it to the humidity. About 3 weeks ago his fatigue was so bad that he went to a clinic in [facility]. He was evaluated for a UTI that was negative. 1 week ago today he saw his PCPwho ended up gatting a CBC showing abnormal counts and he was admitted to [facility]. Other than fatigue has had no fevers, chills or drenching sweats. Has lost a few lbs - <10. Appetite has been down recently. No bleeding or bruising. Was very actived when younger - played a lot of sports into his 40's. 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 He is accompanied today by his partner Morales. 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 Last week Angelica came in feeling a bit better. Today he c/o tingling in his hands and in his feet is worse this has been chronic but seems worse. Notes swelling in his right foot. Has been working with PT. On days PT not there Angelica has been doing some of the prescribed exercises - walking with the walker, but not doing everything that has been prescribed. Eating continues to be better and is hitting his 64 oz drinking target all but one day. No diarrhea.Stoma output has been better - less and more formed. Trying to eat earlier to avoid output at night.No leaks this week. Will see stoma nurse next week. Colostomy functioning. loperamide helping? - better; to be seen by ostomy nurse next week 02/10 Fluid intake - 64 ozs most days [...] 1.0 mg a.m. 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 Social - has a girlfriend and his [...] DAILY ??? Colostomy Belt (Ostomy Belt Medium) [facility] Dispense 1 Sensura [place] Belt #4237 per month. ??? flecainide (TAMBOCOR) 50 mg, Oral, 2 TIMES DAILY ??? fluconazole (DIFLUCAN) 200 mg, Oral, DAILY ??? lidocaine-prilocaine (EMLA) Cream Apply to mediport approximately 30 minutes prior to access. ??? loperamide (IMODIUM A-D) 2 mg, Oral, 3 TIMES DAILY ??? metoprolol tartrate (LOPRESSOR) 25 mg, Oral, DAILY ??? ondansetron (ZOFRAN) 8 mg, Oral, EVERY 8 HOURS PRN ??? Ostomy Supplies Misc Dispense 2 boxes ( 10/box) of Adapt Barrier rings #[id number] per month. ??? Ostomy Supplies Misc Dispense 2 boxes (10/box) of Sensura Flako Soft Convex One-piece Pouch #[id number] month. ??? Ostomy Supplies Misc Dispense 2 boxes (20/box) of Brava Elastic Barrier strips #[id number] per month. ??? Ostomy Supplies Misc Dispense 1 box (50/box) of a generic no-sting skin barrier wipe per month. ??? Ostomy Supplies Misc Dispense 2 boxes (10/box) of Adapt Convex Ring #[id number] per month. Patient itto use one with [...] Cefepime Encephalopathy PHYSICAL EXAM VITAL SIGNS: Vitals: 02/03/22 0803 BP: 117/84 Patient Position: Sitting Pulse: 88 Resp: 17 Temp: 36.7 ??C (98.1 ??F) TempSrc: Temporal SpO2: 96% Weight: 82.8 kg (182 lb 9.6 oz) Height: 178 cm (5' 10.08) GENERAL: Angelica Iverson Jr. is a tired and chronically ill-appearing 61 y.o. year old male in [facility]. ENT: Oropharynx dry. No lesions noted ENDOCRINE: No thyromegaly palpated. CARDIOVASCULAR: Heart with regular rate and rhythm without S3,S4 or murmurs. No cyanosis or peripheral edema. PULMONARY: Lungs are clear to auscultation without rales, rhonchi or wheezing. GASTROINTESTINAL: Functioning ostomy with soft stool MUSCULOSKELETAL: increased edema in RLE with calf tenderness. SKIN: No rashes or petechiae. Diffusely dry, scaly skin LYMPH: No abnormal lymphadenopathy. NEUROLOGICAL: Grossly intact LABORATORY Recent Results (from the past 72 hour(s)) Magnesium Result Value Ref Range Magnesium 0.74 0.69 - 1.07 mmol/L Comprehensive metabolic panel (non-fasting) Result Value Ref Range Glucose Lvl 92 65 - 199 mg/dL BUN 61 (H) 10 - 20 mg/dL Creatinine 2.67 (H) 0.80 - 1.50 mg/dL Sodium 130 (L) 135 - 145 mmol/L Potassium 6.1 (CRIT) 3.5 - 5.0 mmol/L Chloride 97 (L) 98 - 107 mmol/L CO2 19 (L) 22 - 31 mmol/L Anion Gap 14 5 - 15 mmol/L Calcium 9.3 8.5 - 10.5 mg/dL Total Protein 5.7 (L) 6.1 - 8.0 g/dL Albumin 3.7 3.2 - 5.2 g/dL AST 16 0 - 39 unit/L ALT 18 0 - 55 unit/L Alk Phos 85 40 - 130 unit/L Total Bilirubin 0.4 0.2 - 1.3 mg/dL Estimated GFR 26 (L) >=60 mL/min/1.73 m?? IgG Result Value Ref Range IgG 689 (L) 700 - 1,600 mg/dL Hemogram Result Value Ref Range WBC 7.5 4.0 - 9.5 x10(3)/mcL RBC 2.24 (L) 4.58 - 5.54 x10(6)/mcL Hemoglobin 8.3 (L) 13.7 - 16.5 g/dL Hematocrit 23.7 (L) 40.5 - 48.5 % MCV 105.8 (H) 82.9 - 93.1 fL MCH 37.1 (H) 27.5 - 32.1 pg MCHC 35.0 32.0 - 35.7 g/dL Platelets 66 (L) 145 - 357 x10(3)/mcL RDWSD 70.9 (H) 36.0 - 45.0 fL RDWCV 19.0 (H) 11.4 - 13.8 % MPV 11.7 7.6 - 12.9 fL nRBC % Auto 0.9 % nRBC Abs Auto 0.070 (H) 0.000 - 0.000 x10(3)/mcL Differential, Automated Result Value Ref Range Neutrophils % 77.6 % Neutr Abs (ANC) 5.83 1.70 - 6.10 x10(3)/mcL Lymphocytes % 14.4 % Lymphocytes Abs 1.1 0.9 - 3.2 x10(3)/mcL Monocytes % 6.5 % Monocyte Abs 0.5 0.3 - 0.9 x10(3)/mcL Eosinophils % 0.3 % Eosinophils Abs 0.0 0.0 - 0.4 x10(3)/mcL Basophils % 0.1 % Basophils Abs 0.0 0.0 - 0.1 x10(3)/mcL Immature Gran % 1.10 % Zara Gran Abs 0.08 (H) 0.00 - 0.04 x10(3)/mcL ABORh Type Manual Result Value Ref Range Expires at 2359 on: 02/06/2022 ABORh Type O Neg Antibody screen manual Result Value Ref Range AB Screen Interp Negative ABORH Recheck Status Result Value Ref Range ABORH Type Recheck Completed Type and Screen Validity Result Value Ref Range T&S only valid at [facility] Hosp Duplex for DVT, Leg, Unilat Result Value Ref Range VB Text Report Department: Vascular Surgery Lab Patient: [id number] (ANGELICA IVERSON) CPT: 52528 Referring Physician: DILSHAD OSULLIVAN Indications: RIGHT LE swelling Findings: RIGHT: There is occlusive thrombus in the femoral vein distal thigh and popliteal vein. Posterior tibial and peroneal veins were poorly visualized, however, no flow identified by color mode; suspect they are thrombosed. Patent common femoral vein and popliteal vein with spontaneous, respirophasic Doppler waveforms that respond normally to augmentation maneuvers. The common femoral vein, saphenofemoral junction, and femoral vein through the mid thigh thigh are fully compressible. Interpretation: RIGHT: Acute lower extremity occlusive deep venous thrombosis. Comparison: Previous exam done 07/12/2021 was negative. Notification: Dr. Osullivan was informed of these preliminary findings. VB Text Report End of Report RADIOLOGY - None ASSESSMENT & PLANS 1. 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 Deconditioning --Angelica is very deconditioned --Continue to use walker -- Home physical therapy twice weekly 6. DVT --New RLE DVT by doppler (02/03/22) --Eliquis 5 mg po BID sent to [facility] pharmacy to start later today. --Consider decreased dose to 2.5 mg BID at 3-6 months (may need repeat doppler) 7. Summary of Plans ?? Day ~+60 BM Bx - no evidence of disease, full donor chimerism ?? Chai asks that we send new prescriptions to [facility] in [place]: Fluconazole, ACV, ASA, pantoprazole Vancomycin MAg plus, loperamide - sent ?? 1 liter saline today. ?? Start Eliquis 5 mg po BID - prescription sent to pharmacy ?? Continue Tacrolimus - pending level from today ?? consider restarting Bactrim when renal function normalized ?? Continue Fluconazole at 200 mg / day ?? oral thrush - resolved with Troches ?? physical therapy to at home ?? JENNIFER Teran following ?? Immunizations at 6 months ?? RTC 1 week DILSHAD OSULLIVAN MD Section of Hematology [facility] documented in this encounter Plan of Treatment Upcoming Encounters Date Type Specialty Care Team Description 02/18/2022 Infusion Hematology and Oncology 02/21/2022 Infusion Hematology and Oncology 02/24/2022 Appointment Hematology and Oncology 02/24/2022 Office Visit Hematology and Oncology Dilshad Osullivan MD [facility] DR HEMATOLOGY/[place] [address] Miroslava Pelayo, MECHANISM ASSEMBLER [facility] HEMATOLOGY/[place] [address] 02/24/2022 Office Visit Wound Care 02/24/2022 Appointment Hematology and Oncology 02/26/2022 Office Visit Neurology Leni Bustamante MD [facility] NEUROLOGY DEPT. [place], [place] [address] (Wo rk) documented as of this encounter Results Duplex for DVT, Leg, Unilat (02/03/2022 9:42 AM EDT) Component Value Ref Test Analysis Performed At [facility] Range Method Time Signature VB Text Department: Vascular Surgery Lab VASCUBASE Report Patient: [id number] (ANGELICA IVERSON) CPT: 81750 Referring Physician: DILSHAD OSULLIVAN ?? Phone: Indications: [...] documented in this encounter Visit Diagnoses Diagnosis STACIE (acute kidney injury) - Primary Acute kidney failure, unspecified Hypomagnesemia Disorders of magnesium metabolism Acute leukemia in remission Acute leukemia of unspecified cell type in remission S/P partial resection of colon Other postprocedural status S/P allogeneic bone marrow transplant Bone marrow replaced by transplant H/O Clostridium difficile infection Personal history of other infectious and parasitic disease Anemia in neoplastic disease Thrombocytopenia Thrombocytopenia, unspecified 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 status documented in this encounter Additional Health Concerns Infection Onset Date Last Indicated Resolved Time History of C. difficileComment: C. diffiicile 08/20/2021 testing positive 05/25/21. documented as of this encounter Care Teams Asphalt Distributor Tender Relationship Specialty Start Date End Date Beatriz Maurice PA PCP - General Family Medicine 05/06/21 [address] [place] [address] documented as of this encounter
--- OUTSIDE RECORDS SUMMARY | 2022-02-14 11:06 | XMS_ITS | Encounter Summary ---
:1960 Author Organization [facility] [place] [address] Care Team Providers Name Role Phone Beatriz Maurice Primary Care Provider Reason for Visit Treatment/Therapy Plan Authorization (Routine) - Authorized Specialty Diagnoses / Procedures Referred By Contact Refer red To Contact Hematology and Oncology Diagnoses Acute myeloid leukemia in remission S/P allogeneic bone marrow transplant Hypomagnesemia Hayley Palmer, [facility] Hem Onc 3k Procedures [facility] [address] [place]-ON[place]OGY [phone] [place] [address] Referral ID Status Reason Start Date Expiration Date Visits V isits Requested Authorized [id number] Authorized 11/22/2021 11/22/2022 99 99 Encounter Details Date Type Department Care Team Description 02/03/2022 Hospital Encounter Hematology and Hypomag nesemia; Oncology at [facility] S/P allogeneic bone marrow t ransplant; [facility] Acute [place] [address] Social History Tobacco Use Types Packs/Day [...] Sig Dispensed Refills Start Date End Date apixaban (Eliquis) 5 Take 1 tablet by mouth 60 tablet 5 mg Tablet 2 times daily. fluconazole Take 1 tablet by mouth 30 tablet 5 02/03/2022 (Diflucan) 200 mg daily. Tablet pantoprazole EC Take 1 tablet by mouth 90 tablet 3 02/04/20 22 (Protonix) 40 mg daily. Tablet, Delayed Release (E.C.) loperamide (Imodium Take 1 capsule by 90 tablet 1 2 A-D) 2 mg Capsule mouth 3 times daily. Ostomy Supplies Dispense 2 boxes 20 each 01/27/2022 MiscIndications: (/) of Adapt Attention to Convex Ring #[id number] per ileostomy month. Patient it to use [...] with food. Colostomy Belt Dispense 1 Sensura [place] 1 each 2 (Ostomy Belt Medium) Belt #4237 per month. [facility] metoprolol tartrate Take 1 tablet by mouth [...] of Sensura Flako Soft Convex One-piece Pouch #55196 per month. Ostomy Supplies Misc Dispense 2 boxes 40 each 2 (20/box) of Brava Elastic Barrier strips #[id number] per month. Ostomy Supplies Misc Dispense 1 box 50 each 08/20/2021 (50/box) of a generic no-sting skin barrier wipe per month. acyclovir (ZOVIRAX) Take 4 capsules by 240 capsule 3 022 02/10/2022 200 mg Capsule mouth 2 times daily. vancomycin (Vancocin) Take 1 capsule by 60 capsule 5 022 02/10/2022 125 mg Capsule mouth 2 times daily. Magnesium Oxide-Mg AA Take 3 tablets by 270 tablet 3 022 02/10/2022 Chelate (Mg-Plus) 133 mouth 3 times daily. mg Tablet rosuvastatin Take 1 tablet by mouth 90 tablet 3 11/15/2021 02/10/2022 (Crestor) 40 mg daily. Tablet documented as of this encounter Progress Notes Katie Hinds RN - 02/03/2022 1:28 PM EDT Patient Name: Herber Iverson Jr. Patient Age: 61 y.o. Birthdate: 1960 Admit date: 02/03/2022 Attending Physician: No att. providers found Herber Iverson Jr., 61 y.o. male with diagnosis of AML is here for infusion of IV hydration, recheck on potassium sent to lab. S: Pt. offers no complaints at this time. Reviewed plan of care for infusion visit, patient verbalized understanding of plan as outlined. O: Orders independently verified for correct drug name, route and dosage per patient's height, weight and BSA by Katie Hinds, SHARON, RN and onsite pharmacist. Medications administered per protocol. See MAR for medication administration. REACTIONS (DESCRIPTION, TIME, INTERVENTION AND EFFECTIVENESS) none A: Pt. Tolerated treatment with out issue. Herber Iverson Jr. confirms that all questions [...] [facility] DR HEMATOLOGY/[place] [address] Miroslava Pelayo APRN [facility] DR HEMATOLOGY/[place] [address] 02/24/2022 Office Visit Wound Care 02/24/2022 Appointment Hematology and Oncology 02/26/2022 Office Visit Neurology Leni Bustamante MD [facility] DR NEUROLOGY DEPT. [place], [place] [address] (Wo rk) documented as of this encounter Procedures Procedure Name Priority Date/Time Associated Diagnosis Comme nts HC POTASSIUM Routine 02/03/2022 2:19 PM Acute myeloid Results for this EDT leukemia in remission proced ure are in the results section . 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 documented in this encounter Administered Medications Inactive Administered Medications - up to 3 most recent administrations Medication Order MAR Action Action Date Dose Rate Site heparin (pf) (porcine) (100 Given 02/03/2022 2:29 PM EDT 500 Uni ts units/mL) flush 5 mL syringe 500 Units 500 Units, Intravenous, ONCE PRN, Starting on Thu02/03/22 at 1418, Until Tu02/04/22 at 0433, Line Care, Routine sodium chloride 0.9% infusion New Bag 02/03/2022 1:12 PM EDT 1,000 mLs 1000 mL/hr 1,000 mL, at 1,000 mL/hr, Intravenous, ONCE, 1 dose, On Thu02/03/22 at 1300, 1 liter over 1 hour. documented in this encounter Additional Health Concerns Infection Onset Date Last Indicated Resolved Time History of C. difficileComment: C. diffiicile 08/20/2021 testing positive 05/25/21. documented as of this encounter Care Teams Dental Practitioner Relationship Specialty Start Date End Date Beatriz Maurice PA PCP - General Family Medicine 05/06/21 [address] [place] [address] documented as of this encounter
--- OUTSIDE RECORDS SUMMARY | 2022-02-14 11:06 | XMS_ITS | Encounter Summary ---
:1960 Author Organization [facility] [place] [address] Care Team Providers Name Role Phone Beatriz Maurice Primary Care Provider Encounter Details Date Type Department Care Team Description 02/13/2022 Telephone Hematology and Oncol ogy at [facility] Annika Geller, [place] [phone] Social History Tobacco Use Types Packs/Day [...] encounter Miscellaneous Notes Telephone Encounter - Annika Geller RN - 02/13/2022 12:51 PM EDT TCT Nurse Navigator Note: O: Herber is a 61yo man s/p allogeneic sct, Day 0=10/22/21. His partner Morales called at noon to report Herber is experiencing new onset chest pain with swallowing, SOB and tingling in his hands. They've beeninstructed to go immediately to the ER at [facility]. I have notified Dr. Modi [facility] quiller machine fixer Radha. A: Morales and Herber both verbalized understanding of the plan. P: Cardiac work up at [facility] documented in this encounter Plan of Treatment Upcoming Encounters Date Type Specialty Care Team Description 02/18/2022 Infusion Hematology and Oncology 02/21/2022 Infusion Hematology and Oncology 02/24/2022 Appointment Hematology and Oncology 02/24/2022 Office Visit Hematology and Oncology Parviz Modi MD [facility] DR HEMATOLOGY/[place] [address] Miroslava Pelayo APRN [facility] DR HEMATOLOGY/[place] [address] 02/24/2022 Office Visit Wound Care 02/24/2022 Appointment Hematology and Oncology 02/26/2022 Office Visit Neurology Leni Bustamante MD [facility] DR NEUROLOGY DEPT. [place], [place] [address] (Wo rk) documented as of this encounter Visit Diagnoses Not on filedocumented in this encounter Additional Health Concerns Infection Onset Date Last Indicated Resolved Time History of C. difficileComment: C. diffiicile 08/20/2021 testing positive 05/25/21. documented as of this encounter Care Teams Basket Turner Relationship Specialty Start Date End Date Beatriz Maurice PA PCP - General Family Medicine 05/06/21 [address] [place] [address] documented as of this encounter
--- OUTSIDE RECORDS SUMMARY | 2022-02-14 11:06 | XMS_ITS | Encounter Summary ---
:1960 Author Organization [place] [address] Care Team Providers Name Role Phone Beatriz Maurice Primary Care Provider Reason for Visit Reason Onset Date Comments Follow-up 02/12/2022 Medication Management 02/12/2022 Encounter Details Date Type Department Care Team Description 02/12/2022 Telephone Hematology and Oncology Yazmin Ramirez, Follow-up ; [place] [facility] [place] [address] Social History Tobacco Use Types Packs/Day [...] this encounter Miscellaneous Notes Telephone Encounter - Yazmin Ramirez, RN - 02/12/2022 11:53 AM EDT Claudia López notified with RN that PA for vancomycin was approved and PA for Mag Plus was denied as it is non-rebatable product and is not covered by [place] Medicaid. Spoke to Sohan Orlando at [facility] (phone [phone]), to review PA approval for vancomycin. She was able to process claim but do not have med in stock. They have ordered it and it will be available on 02/13. Also reviewed PA for Mag Plus will be appelaed as it was denied at this time. Spoke to pt to review above coordinated care. Aware that vanco will be available at [facility] 02/13. He has been out since 02/10. RN will notify team. Discussed that RN will look into appeal for Mag Plus but uncertain that this decision can be overturned. RN will f/u with pt. Discussed that Annika Geller had given yosef Paula's SO, info on how Mag Plus can be ordered without script via [employer]. Note sent to [facility] to determine if Mag Plus can be appealed. RN will continue to follow and coordinate care. documented in this encounter Plan of Treatment Upcoming Encounters Date Type Specialty Care Team Description 02/18/2022 Infusion Hematology and Oncology 02/21/2022 Infusion Hematology and Oncology 02/24/2022 Appointment Hematology and Oncology 02/24/2022 Office Visit Hematology and Oncology Parviz Modi MD [facility] DR HEMATOLOGY/[place] [address] Miroslava Pelayo APRN [facility] DR HEMATOLOGY/[place] [address] 02/24/2022 Office Visit Wound Care 02/24/2022 Appointment Hematology and Oncology 02/26/2022 Office Visit Neurology Leni Bustamante MD [facility] ER DR NEUROLOGY DEPT. [place], [place] [address] (Wo rk) documented as of this encounter Visit Diagnoses Not on filedocumented in this encounter Additional Health Concerns Infection Onset Date Last Indicated Resolved Time History of C. difficileComment: C. diffiicile 08/20/2021 testing positive 05/25/21. documented as of this encounter Care Teams Academy Education Director Relationship Specialty Start Date End Date Beatriz Maurice PA PCP - General Family Medicine 05/06/21 [address] [place] [address] documented as of this encounter
--- OUTSIDE RECORDS SUMMARY | 2022-02-14 11:07 | XMS_ITS | Encounter Summary ---
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 [address] Referral ID Status Reason Start Date Expiration Date Visits V isits Requested Authorized [id number] Authorized 11/22/2021 11/22/2022 99 99 Encounter Details Date Type Department Care Team Description 01/20/2022 Hospital Encounter Hematology and Hypomag nesemia; [place] [facility] [place]ogeneic bone marrow t ransplant; [facility] Acute mye loid leukemia in remission; Drive STACIE (acute kidney injury); [place] [address] Dehydration [phone] Social History Tobacco Use Types Packs/Day Years [...] (/) of [employer] Attention to Convex Ring #[id number] per ileostomy month. Patient it to use [...] with food. Colostomy Belt Dispense 1 Sensura Inyokern 1 each 2 (Ostomy Belt Medium) Belt #4237 per month. [facility] metoprolol tartrate Take 1 tablet by mouth [...] 30 minutes prior to access. Ostomy Supplies [facility] Dispense 2 boxes ( 20 each 11 022 /) of Adapt Barrier rings #8636 per month. Ostomy Supplies Dispense 1 bottle of 28.3 g 5 08/20/2021 Powder Adapt stoma powder #7906 every other month. Ostomy Supplies [facility] Dispense 2 boxes 20 each 11 2 (10/box) of Sensura Flako Soft Convex One-piece Pouch #28683 per month. Ostomy Supplies [facility] Dispense 2 boxes 40 each 2 (20/box) of Brava Elastic Barrier strips #[id number] per month. Ostomy Supplies [facility] Dispense 1 box 50 each 11 08/20/2021 (50/box) of a generic no-sting skin barrier wipe per month. fluconazole Take 1 tablet by mouth 0 12/18/2021 0 02/03/2022 (Diflucan) 200 mg daily. Tablet magnesium oxide Take 1 tablet by mouth 90 tablet 3 12/13/19 22 01/27/2022 (Mag-Ox) 400 mg 3 times daily. (241.3 mg magnesium) Tablet acyclovir (ZOVIRAX) Take 4 capsules by [...] documented as of this encounter Progress Notes Marlon Steve RN - 01/20/2022 3:37 PM EDT Patient Name: Herber Iverson Jr. Patient Age: 61 y.o. Birthdate: 1960 Admit date: 01/20/2022 Attending Physician: No att. providers found TIME TREATMENT STARTED: 1400 TIME TREATMENT ENDED: 1730 Herber Iverson Jr., 61 y.o. male with diagnosis of 1. Hypomagnesemia 2. S/P allogeneic bone marrow transplant 3. Acute myeloid leukemia in remission 4. STACIE (acute kidney injury) 5. Dehydration is here for an infusion of Hydration/Mag. PROTOCOL: NA CYCLE: NA WEEK: NA DAY: NA S: Pt. offers no complaints at this time. Reviewed plan of care for Infusion visit, patient verbalized understanding of plan as outlined. Patient discharged to home O: Patient's medication orders independently verified for correct drug name, route and dosage per patient's height, weight and BSA by Marlon Steve RN and Pharmacist. REACTIONS (DESCRIPTION, TIME, INTERVENTION AND EFFECTIVENESS) None noted. A: Pt. Tolerated treatment well. Herber Iverson Jr. confirms that all questions and issues have been addressed. P: Return to clinic per routine. documented in this encounter Plan of Treatment Upcoming Encounters Date Type Specialty Care Team Description 02/18/2022 Infusion Hematology and Oncology 02/21/2022 Infusion Hematology and Oncology 02/24/2022 Appointment Hematology and Oncology 02/24/2022 Office Visit Hematology and Oncology Parviz Modi MD [facility] DR HEMATOLOGY/[place] [address] Miroslava Pelayo APRN [facility] DR HEMATOLOGY/[place] [address] 02/24/2022 Office Visit Wound Care 02/24/2022 Appointment Hematology and Oncology 02/26/2022 Office Visit Neurology Leni Bustamante MD [facility] DR NEUROLOGY DEPT. 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 STACIE (acute kidney injury) Acute kidney failure, unspecified Dehydration documented in this encounter Administered Medications Inactive Administered Medications - up to 3 most recent administrations Medication Order MAR Action Action Date Dose Rate Site heparin, porcine (heparin Given 01/20/2022 5:08 PM EDT 500 Units LockFlush(Porcine)(PF)) 100 unit/mL flush 1 dose, Starting on Thu01/20/22 at 1707, Until Thu01/20/22 at 1708, Marlon Steve: cabinet override magnesium sulfate 2 g in sterile water New Bag 01/20/2022 3:01 PM EDT 2 g 25 mL/hr 50 mL infusion 2 g, Intravenous, ONCE, 1 dose, On Thu01/20/22 at 1500, Administer over 120 Minutes sodium chloride 0.9% infusion New Bag 01/20/2022 3:00 PM EDT 500 mL/hr 500 mL/hr 500 mL/hr, Intravenous, CONTINUOUS, Starting on Thu01/20/22 at 1500, Until Thu01/20/22 at 1659, Please give 1 liter normal saline over 2 hours. documented in this encounter Additional Health Concerns Infection Onset Date Last Indicated Resolved Time History of C. difficileComment: C. diffiicile 08/20/2021 testing positive 05/25/21. documented as of this encounter Care Teams Chief Unit Forester Relationship Specialty Start Date End Date Beatriz Maurice PA PCP - General Family Medicine 05/06/21 [address] [place] [address] documented as of this encounter
--- OUTSIDE RECORDS SUMMARY | 2022-02-14 11:07 | XMS_ITS | Encounter Summary ---
:1960 Author Organization [facility] Address [facility] [place] [address] Care Team Providers Name Role Phone Beatriz Maurice Primary Care Provider Encounter Details Date Type Department Care Team Description 01/17/2022 Office Visit Hematology and Radha Osullivan MD [facility] DR HEMATOLOGY/[place] [address] S/P allogeneic bone marrow transplant (P rimary Dx); Oncology at [facility] Miroslava Pelayo [facility] DR HEMATOLOGY/[place] [address] Hypomagnesemia; [facility] Hayley Palmer, [facility] [address] HEMATOLOGY-[place] [address] STACIE (acute kidney injury); Drive Failure to thrive in adult; [place], [place] Acute leukemia in remission; [address] Thrombocytopenia; [phone] S/P partial res ection of colon; Chronic atrial fibrillation; Anemia in neopl astic disease Social History Tobacco Use Types Packs/Day Years [...] Sign Reading Time Taken Comments Blood Pressure 93/71 01/17/2022 9:52 AM EDT Pulse 81 01/17/2022 9:52 AM EDT Temperature - - Respiratory Rate 20 01/17/2022 9:52 AM EDT Oxygen Saturation 100% 01/17/2022 9:52 AM EDT Inhaled Oxygen Concentration - - Weight - - Height - - Body Mass Index - - documented in this encounter Progress Notes Dilshad Osullivan MD - 01/17/2022 9:30 AM EDT HEMATOLOGY/BMT CONSULTATION VISIT NOTE CHIEF COMPLAINT: Herber Iverson Jr. is a 61 y.o. male originally referred by Dr. Beatriz Maurice for evaluation of leukemia. He is seen in follow-up today. Data Review (From Recent Hospital discharge summary and the EMR) Admitted to [facility] 04/29/21 for leukocytosus. Discharged 04/30/21 04/30/21 CBC - 40.7/8.1 ANC - 3,210 ALC - 12.85 AMC - 13.660 LDH - 655 COVIC-19 - NEG 05/06/21 admission for likely AML BM Bx - >95% cellular wit >90% myeloblasts CG - normal male karyotype NGS - + mutations in NPM1, FLT3 ??ITD and DNM3TA 05/08/21 D1 7&3 + midostauren induction 105/ Day +14 BM Bx - hypocellular, <5% [...] [place] [address]/10,000 ABL1 copies (135.80%.) 08/08/21 Discharged after reinduction with gilteritinib and venetoclax and initial clearance of GREASE MONKEY leukemia. 08/12/21 LP - FELY 08/26/21 LP [...] VRE, severe mucositis, STACIE 12/13-12/17/21 Admission to [facility] for failure to thrive. 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 01/06/22 Admission for STACIE, possible PNA and altered mental status. Discharged 01/12. Date NPM1 HSCT Day Source Total PMN [place] 05/21/21 43% 08/06/21 135% 09/12/21 1.95% 11/22/21 [...] abnormal counts and he was admitted to [facility]. Other than fatigue has had no fevers, chills or drenching sweats. Has lost a few lbs - <10. Appetite has been down recently. No bleeding or bruising. Was very actived when younger - played a lot of sports into his 40's. 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 He is accompanied today by his partner Morales. 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 Herber has now been home for 3 days. He says that he feels worn out. Since going home he is more comfortable but gets SOB just walking around the house. Difficult to get up and down the 3 steps tohis home. Has been trying to exercise by walking in the house. Colostomy functioning. loperamide helping? - doing better - no recent leakage and stools less liquid. Fluid intake - ~60 oz per day Mental status, WADE, photophobia, stiff neck - feels back to normal F/C/S - none How doing since started pred? - better Energy level ? - still low Eating, appetite - improved - eating 3 meals plus snacks. How doing with pills? - taking them Diarrhea - stool has thickened up recently. New skin rashes? - no but still on his arms and dry skin throughout. Bleeding or melena ? - none Does he still have Idhifa at home? - Current tacrolimus dose: 1.0 mg a.m. 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 Social - has a girlfriend and his [...] PICHARDO: as above Gastrointestinal --Appetite: low --Nausea/vomiting/diarrhea/constipation: Stools watery/soft formed Genitourinary --Dysuria or hematuria: No Musculoskeletal --Muscle pain or weakness: diffuse weakness due to deconditioning --Joint pain or swelling: No Immune System [...] boxes ( 10/box) of Adapt Barrier rings #0365 per month. ??? Ostomy Supplies Misc Dispense 2 boxes (10/box) of Sensura Flako Soft Convex One-piece Pouch #43437sqn month. ??? Ostomy Supplies Misc Dispense 2 boxes (20/box) of Brava Elastic Barrier strips #230032 per month. ??? Ostomy Supplies Misc Dispense [...] ??? Cefepime Encephalopathy PHYSICAL EXAM VITAL SIGNS: Blood pressure 93/71, pulse 81, resp. rate 20, SpO2 100 %. GENERAL: Herber Iverson Jr. is a tired and chronically ill-appearing 61 y.o. year old male who looks exhausted and weak ENT: + oral thrush heavily coating the tongue ENDOCRINE: No thyromegaly palpated. CARDIOVASCULAR: Heart with regular rate and rhythm without S3,S4 or murmurs. No cyanosis or peripheral edema. PULMONARY: Lungs are clear to auscultation without rales, rhonchi or wheezing. GASTROINTESTINAL: Abdomen soft and non-tender without palpable masses or hepatosplenomegaly. MUSCULOSKELETAL: Neck supple with full ROM. No spine or CVA tenderness. SKIN: No rashes or petechiae. There are a few small bruises. LYMPH: No abnormal lymphadenopathy. NEUROLOGICAL: Alert and oriented to person, place and time. LABORATORY Recent Results (from the past 72 hour(s)) Magnesium Result Value Ref Range Magnesium 0.72 0.69 - 1.07 mmol/L Comprehensive metabolic panel (non-fasting) Result Value Ref Range Glucose Lvl 130 65 - 199 mg/dL BUN 58 (H) 10 - 20 mg/dL Creatinine 1.95 (H) 0.80 - 1.50 mg/dL Sodium 137 135 - 145 mmol/L Chloride 104 98 - 107 mmol/L CO2 17 (L) 22 - 31 mmol/L Anion Gap 16 (H) 5 - 15 mmol/L Calcium 9.1 8.5 - 10.5 mg/dL Total Protein 6.1 6.1 - 8.0 g/dL Albumin 3.6 3.2 - 5.2 g/dL AST 17 0 - 39 unit/L ALT 19 0 - 55 unit/L Alk Phos 130 40 - 130 unit/L Total Bilirubin 0.4 0.2 - 1.3 mg/dL Estimated GFR 36 (L) >=60 mL/min/1.73 m?? IgG Result Value Ref Range IgG 772 700 - 1,600 mg/dL Hemogram Result Value Ref Range WBC 9.9 (H) 4.0 - 9.5 x10(3)/mcL RBC 2.47 (L) 4.58 - 5.54 x10(6)/mcL Hemoglobin 8.6 (L) 13.7 - 16.5 g/dL Hematocrit 25.1 (L) 40.5 - 48.5 % MCV 101.6 (H) 82.9 - 93.1 fL MCH 34.8 (H) 27.5 - 32.1 pg MCHC 34.3 32.0 - 35.7 g/dL Platelets 87 (L) 145 - 357 x10(3)/mcL RDWSD 56.7 (H) 36.0 - 45.0 fL RDWCV 16.3 (H) 11.4 - 13.8 % MPV 12.0 7.6 - 12.9 fL nRBC % Auto 0.6 % nRBC Abs Auto 0.060 (H) 0.000 - 0.000 x10(3)/mcL Differential, Automated Result Value Ref Range Neutrophils % 83.9 % Neutr Abs (ANC) 8.28 (H) 1.70 - 6.10 x10(3)/mcL Lymphocytes % 9.2 % Lymphocytes Abs 0.9 0.9 - 3.2 x10(3)/mcL Monocytes % 4.8 % Monocyte Abs 0.5 0.3 - 0.9 x10(3)/mcL Eosinophils % 0.8 % Eosinophils Abs 0.1 0.0 - 0.4 x10(3)/mcL Basophils % 0.1 % Basophils Abs 0.0 0.0 - 0.1 x10(3)/mcL Immature Gran % 1.20 % Zara Gran Abs 0.12 (H) 0.00 - 0.04 x10(3)/mcL RADIOLOGY - None ASSESSMENT & PLANS 1. [...] suggest AML recurrence --Day ~+60 bone marrow biopsy - FELY with LONGTERM --Consideration of Gilteritinib maintenance post allo 2. S/P Colectomy --stool watery / loose, improved with Mag Pro 3. Renal --Creatinine remains elevated due to inadequate fluid intake -- Fluconazole dose-reduced to 200 mg / day --Continue to hold Bactrim Renal Impairment Dosing ACV: CrCl <25 -> 400 mg BID; CrCl <10 -> 200 mg BID Bactrim: CrCl 15-30 -> 1 DS daily; <15 1 DS QOD or hold Fluconazole: CrCl <50 -> 200 mg daily 5. ID --Worsening oral thrush despite nystatin --Fluconazole dosing decreased due to renal insufficiency --CMV - remains negative -- EBV low-level positivity (<100) - continue to follow --IVIg remains >400 so IVIg not needed [...] Deconditioned --Continue to use walker for safety 6. Counseling Reviewed with Herber and Morales that he should be admitted due to his failure to thrive at home. Herber is understandably very upset that he needs to come in. His partner Chai is exhausted and overwhelmed by his care. She has not been able to go back to work as Herber is requiring [id number] care. JENNIFER Teran is working with Herber and Chai to help with their finances through grants, grocery and gas cards. 7. Summary of Plans ?? 1 liter saline today, IV Mag ?? Continue Tacrolimus - level Ok at 7.6 today ?? Consider restart Bactrim at next visit ?? Continue Fluconazole at 200 mg / day----> increase to 400 mg if creatinine stays stable ?? oral thrush---> resolved ?? physical therapy to begin at home---> will call and arrange for VNA and home PT to restart. ?? Day ~+60 BM Bx - FELY ?? --Per Tino et al, Blood 2020 consider addingIdhifa at ~day +60. ?? JENNIFER Teran following ?? Immunizations at 6 months ?? RTC 1 week DILSHAD OSULLIVAN MD Section of Hematology [facility] documented in this encounter Plan of Treatment Upcoming Encounters Date Type Specialty Care Team Description 02/18/2022 Infusion Hematology and Oncology 02/21/2022 Infusion Hematology and Oncology 02/24/2022 Appointment Hematology and Oncology 02/24/2022 Office Visit Hematology and Oncology Dislhad Osullivan MD [facility] DR HEMATOLOGY/[place] [address] Miroslava Pelayo APRN [facility] DR HEMATOLOGY/[place] [address] 02/24/2022 Office Visit Wound Care 02/24/2022 Appointment Hematology and Oncology 02/26/2022 Office Visit Neurology Leni Bustamante MD [facility] DR NEUROLOGY DEPT. [place], [place] [address] (Wo rk) Scheduled Orders Name Type Priority Associated Diagnoses Order S chedule Type and screen Lab STAT Anemia in neoplastic Once a week for 52 ([facility] disease Occurrences starting 01/16/2022 unti l 01/16/2023, 2 c ompleted documented as of this encounter Visit Diagnoses Diagnosis S/P allogeneic bone marrow transplant - Primary Bone marrow replaced by transplant Hypomagnesemia Disorders of magnesium metabolism STACIE (acute kidney injury) Acute kidney failure, unspecified Failure to thrive in adult Adult failure to thrive Acute leukemia in remission Acute leukemia of unspecified cell type in remission Thrombocytopenia Thrombocytopenia, unspecified S/P partial resection of colon Other postprocedural status Chronic atrial fibrillation Atrial fibrillation Anemia in neoplastic disease documented in this encounter Additional Health Concerns Infection Onset Date Last Indicated Resolved Time History of C. difficileComment: C. diffiicile 08/20/2021 testing positive 05/25/21. documented as of this encounter Care Teams Extrusion Die Coordinator Relationship Specialty Start Date End Date Beatriz Maurice PA PCP - General Family Medicine 05/06/21 [address] [place] [address] documented as of this encounter
--- OUTSIDE RECORDS SUMMARY | 2022-02-14 11:07 | XMS_ITS | Encounter Summary ---
:1960 Author Organization [place] [address] Care Team Providers Name Role Phone Beatriz Maurice Primary Care Provider Encounter Details Date Type Department Care Team Description 01/17/2022 Hospital Encounter Hematology and Hypomag nesemia; Oncology at [facility] [place] S/P allogeneic bone marrow t ransplant; [facility] [place] [address] Social History Tobacco Use Types Packs/Day [...] Sig Dispensed Refills Start Date End Date tacrolimus (Prograf) Take 2-3 capsules by 60 capsule 3 01/14 0.5 mg mouth 2 times daily. CapsuleIndications: Take 2 capsules (1mg) Acute myeloid in the morning. Take 3 leukemia in remission capsules (1.5mg) at night. predniSONE Take 3 tablets by 90 tablet 2 12/24/2021 (Deltasone) 10 mg mouth every morning. Tablet Take with food. Colostomy Belt Dispense 1 Sensura Monroe 1 each 11 2 (Ostomy Belt Medium) Belt #[id number] per month. Mis metoprolol tartrate Take 1 tablet by mouth [...] 30 minutes prior to access. [place] [facility] [place] 2 boxes ( 20 each 11 022 10/box) of Adapt Barrier rings #[id number] per month. Ostomy Supplies Dispense 1 bottle of 28.3 g 5 08/20/2021 Powder Adapt stoma powder #[id number] every other month. Ostomy Supplies [facility] [place] 2 boxes 20 each 11 2 (10/box) of Sensura Flako Soft Convex One-piece Pouch #[id number] per month. Ostomy Supplies [facility] [place] 2 boxes 40 each 11 2 (20/box) of Brava Elastic Barrier strips #[id number] per month. Ostomy Supplies [facility] [place] 1 box 50 each 11 08/20/2021 [...] documented as of this encounter Progress Notes Marcela Gutiérrez RN - 01/17/2022 4:33 PM EDT Patient Name: Herber Iverson Jr. Patient Age: 61 y.o. Birthdate: 1960 Admit date: 01/17/2022 Attending Physician: No att. providers found Herber Iverson Jr., 61 y.o. male with diagnosis of AML (allogeneic SCT) is here for 1 Liter of Normal Saline over 2 hrs.. S: Pt. offers no complaints at this time. O: orders independently verified for correct drug name, route and dosage by Marcela Gutiérrez RN and onsite pharmacist A: Pt. Tolerated treatment well. Herber Iverson confirms that all questions and issues have been addressed. P: Return to clinic as scheduled. Pt. chemo teaching instructions included: documented in this encounter Plan of Treatment Upcoming Encounters Date Type Specialty Care Team Description 02/18/2022 Infusion Hematology and Oncology 02/21/2022 Infusion Hematology and Oncology 02/24/2022 Appointment Hematology and Oncology 02/24/2022 Office Visit Hematology and Oncology Parviz Modi MD [facility] HEMATOLOGY/[place] [address] Miroslava Pelayo, HEYDI [facility] HEMATOLOGY/[place] [address] 02/24/2022 Office Visit Wound Care 02/24/2022 Appointment Hematology and Oncology 02/26/2022 Office Visit Neurology Leni Bustamante MD [facility] NEUROLOGY DEPT. 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 difficileComment: C. diffiicile 08/20/2021 testing positive 05/25/21. documented as of this encounter Care Teams Garage Door Installer Relationship Specialty Start Date End Date Beatriz Maurice PA PCP - General Family Medicine 05/06/21 [address] [place] [address] documented as of this encounter
--- OUTSIDE RECORDS SUMMARY | 2022-02-14 11:07 | XMS_ITS | Encounter Summary ---
:1960 [place] [address] Care Team Providers Name Role Phone Beatriz Maurice Primary Care Provider Reason for Visit Reason Comments Follow-up Attention ileostomy Encounter Details Date Type Department Care Team Description 01/17/2022 Office Visit Wound Care at [facility] [place] [address] Social History Tobacco Use Types Packs/Day [...] encounter Progress Notes Serenity Frey RN - 01/17/2022 12:00 PM EDT Images from the original note were not included. Clinic Ostomy Progress Note Surgery/Date:??05/28/21??Procedure(s) (LRB): @ILEOSTOMY OR JEJUNOSTOMY, NON TUBE (WRVU 17.59) (N/A) @EXPLORATORY LAPAROTOMY, REOPENING OF RECENT (WRVU 17.63) (N/A)?? Admitted from 10/15/21-11/18/21 for a MUD allo HSCT. Admitted on 01/06/22 as a transfer from OSH for??worsening lethargy in the setting of presumed pneumonia being treated with cefapime.??Discharged 01/12/22 ?? 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 Surgeon:??Dr. Colby Walter.?? Pouching System: Removed #41203 with adapt ring, elastic barrier strips, and a belt which had changed at 5am this morning. He hadn't had much out since then, so pouch was actually nicely intact. -Replaced with #[id number] with Max convex ring, elastic barrier strips, and belt Stoma Appearance: red, budded, slightly oval ~ 3/4 x 1 1/4 Peristomal Skin: actually nicely intact for all the leakage patient has been having. He stated he has been applying stoma powder and skin prep, but today I opted not to to try and minimize products on skin. Ostomy Output: He stated that it has been relatively thick but that he seems to not put much of anything out during the day and then at night it becomes very active and that is when it has been leakingis at night. He stated it isn't always when it is full that it leaks. He is losing sleep due to the anxiety surrounding pouch leakage at night. He takes 1 tab of imodium in the AM, afternoon, and before bed. I recommended he continue with the 1 tab in the AM and afternoon but to increase to two tabs before bed and to set an alarm for 2-3 hours into his sleep so that he has something to remind him to wake up instead of worrying if he will fall asleep and then have a leak. Today's visit, teaching and recommendations: I was paged by Dr. Modi who saw patient in [facility]. He stated that patient has been having leakage daily and requested to see an ostomy nurse. He was down in [facility] receiving IVF, so I went to see him there and his girlfriend Morales was present. Morales does his pouch changes for him so we discussed the issues with leakage and where it happens. Since it is happeningmost often at night when he sleeps, I made the two suggestions listed above under Ostomy Output. Jacquelyn asked where the leakage occurs which she stated usually medially near umbilicus but that it hasn't only happened there. I had him sit up (which is how he is positioned in the photo). He has a deepcrease medially that leads to his umbilicus. I do wonder if applying paste to this crease would helpthe leakage, but he is understandably hesitant about using paste as the paste that was used by staffin the hospital was overdone and hurt him when pouch leaked and need to be changed and removed. The paste we have inpatient also is alcohol based which stung patient's peristomal skin. I opted to triala convex ring with his soft convex pouch and still use the belt to see if the convex ring could flatten out that crease a bit better. I gave him 5 spare pouches, 5 spare convex rings and also a tube ofalcohol free Brava paste. I explained that if he has leakage with the changes we made today, then hecould try getting rid of the convex ring, going back to the flat adapt ring and then filling in the crease with the alcohol free paste. His girlfriend agreed and understood these directions. He will behere Thursday for another infusion, so I stated we would check on him then to see how the wentwith these changes. F/u: Thursday01/20/22 Stoma: documented in this encounter Plan of Treatment Upcoming Encounters Date Type Specialty Care Team Description 02/18/2022 Infusion Hematology and Oncology 02/21/2022 Infusion Hematology and Oncology 02/24/2022 Appointment Hematology and Oncology 02/24/2022 Office Visit Hematology and Oncology Parviz Modi MD [facility] DR HEMATOLOGY/[place] [address] Miroslava Pelayo APRN [facility] HEMATOLOGY/[place] [address] 02/24/2022 Office Visit Wound Care 02/24/2022 Appointment Hematology and Oncology 02/26/2022 Office Visit Neurology Leni Bustamante MD [facility] DR NEUROLOGY DEPT. [place], [place] [address] (Wo rk) documented as of this encounter Visit Diagnoses Diagnosis Attention to ileostomy documented in this encounter Additional Health Concerns Infection Onset Date Last Indicated Resolved Time History of C. difficileComment: C. diffiicile 08/20/2021 testing positive 05/25/21. documented as of this encounter Care Teams Baking Powder Mixer Relationship Specialty Start Date End Date Beatriz Maurice PA PCP - General Family Medicine 05/06/21 [address] [place] [address] documented as of this encounter
--- OUTSIDE RECORDS SUMMARY | 2022-02-14 11:07 | XMS_ITS | Encounter Summary ---
:1960 Author Organization [facility] [place] [address] Care Team Providers Name Role Phone Beatriz Maurice Primary Care Provider Reason for Visit Reason Onset Date Comments Referral, Vna 01/20/2022 Medical Care Coordination 01/20/2022 Encounter Details Date Type Department Care Team Description 01/20/2022 Telephone Hematology and Oncology Yazmin Ramirez, Referral, Vna; [place] [facility] [place] [address] Social History Tobacco Use Types Packs/Day [...] encounter Miscellaneous Notes Telephone Encounter - Yazmin Ramirez RN - 01/20/2022 11:12 AM EDT Pt is requesting PT referral to [facility] DINA for SHARON Nielsen Clinical Public Works Technician at [facility] (phone [phone]), with request to contact this RN, question if this is a new episode of care or JULIA. Awaiting response. [id number]: Received message that pt had SN, PT and OT so this would be a resumption of care for services. Referral order can be faxed to fax [phone]. 01-21-22: Vanessa Palmer NP, wrote JULIA orders. RN faxed to [facility] fax [phone]. 01-22-22: Spoke to Morales at [facility] and they received orders along with d/c summary and willow analyst note. He will have a nursing visit today 01/22/22. RN will continue to follow and coordinate care. documented in this encounter Plan of Treatment Upcoming Encounters Date Type Specialty Care Team Description 02/18/2022 Infusion Hematology and Oncology 02/21/2022 Infusion Hematology and Oncology 02/24/2022 Appointment Hematology and Oncology 02/24/2022 Office Visit Hematology and Oncology Parviz Modi MD [facility] DR HEMATOLOGY/[place] [address] Miroslava Pelayo APRN [facility] DR HEMATOLOGY/[place] [address] 02/24/2022 Office Visit Wound Care 02/24/2022 Appointment Hematology and Oncology 02/26/2022 Office Visit Neurology Leni Bustamante MD [facility] DR NEUROLOGY DEPT. [place], [place] [address] (Wo rk) documented as of this encounter Visit Diagnoses Not on filedocumented in this encounter Additional Health Concerns Infection Onset Date Last Indicated Resolved Time History of C. difficileComment: C. diffiicile 08/20/2021 testing positive 05/25/21. documented as of this encounter Care Teams Public Works Technician Relationship Specialty Start Date End Date Beatriz Maurice PA PCP - General Family Medicine 05/06/21 [address] [place] [address] documented as of this encounter
--- OUTSIDE RECORDS SUMMARY | 2022-02-14 11:07 | XMS_ITS | Encounter Summary ---
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 [address] Referral ID Status Reason Start Date Expiration Date Visits V isits Requested Authorized [id number] Authorized 11/22/2021 11/22/2022 99 99 Encounter Details Date Type Department Care Team Description 01/17/2022 Hospital Encounter Hematology and Anemia in neoplastic disease; Oncology at [facility] Hypomagnesemia; [facility] STACIE (acut e kidney injury); Drive H/O Clostridium difficile in fection; [place] [address]; [phone] Acute leukemia in remission; Weakness acquir ed in ICU; S/P allogeneic bone marrow transplant; Dehydration Social [...] 1 each 2 (Ostomy Belt Medium) Belt #[id number] per month. [facility] metoprolol tartrate Take 1 tablet by mouth [...] 30 minutes prior to access. Ostomy Supplies [facility] Dispense 2 boxes ( 20 each 022 10/box) of [employer] Barrier rings #[id number] per month. [employer] Supplies Dispense 1 bottle of 28.3 g 5 08/20/2021 Powder [employer] stoma powder #[id number] every other month. Ostomy Supplies [facility] Dispense 2 boxes 20 each 2 (10/box) of [employer] [place] Soft Convex One-piece Pouch #[id number] per month. Ostomy Supplies [facility] Dispense 2 boxes 40 each 11 2 (20/box) of [employer] Elastic Barrier strips #[id number] per month. Ostomy Supplies [facility] Dispense 1 box 50 each 08/20/2021 (50/box) [...] documented as of this encounter Progress Notes Gayle Reyes RN - 01/17/2022 9:01 AM EDT Patient Name: Herber Iverson Jr. Patient Age: 61 y.o. Birthdate: 1960 Admit date: 01/17/2022 Attending Physician: No att. providers found Access visit. See MAR and/or flowsheet. documented in this encounter Miscellaneous Notes Addendum Note - Marcela Gutiérrez, RN - 01/17/2022 2:08 PM EDT Encounter addended by: Marcela Gutiérrez, RN on: 01/17/2022 2:08 PM Actions taken: MAR administration accepted documented in this encounter Plan of Treatment Upcoming Encounters Date Type Specialty Care Team Description 02/18/2022 Infusion Hematology and Oncology 02/21/2022 Infusion Hematology and Oncology 02/24/2022 Appointment Hematology and Oncology 02/24/2022 Office Visit Hematology and Oncology Parviz Modi MD [facility] DR HEMATOLOGY/[place] [address] Miroslava Pelayo APRN [facility] DR HEMATOLOGY/[place] [address] 02/24/2022 Office Visit Wound Care 02/24/2022 Appointment Hematology and Oncology 02/26/2022 Office Visit Neurology Leni Bustamante MD [facility] NEUROLOGY DEPT. [place], [place] [address] (Wo rk) documented as of this encounter Procedures Procedure Name Priority Date/Time Associated Comments Diagnosis TYPE AND SCREEN STAT 01/17/2022 8:50 AM Result s for this VALIDITY EDT procedure are i n the results section. ABORH RECHECK STATUS STAT 01/17/2022 8:50 AM R esults for this EDT procedure are i n the results section. ANTIBODY SCREEN MANUAL STAT 01/17/2022 8:50 AM Results for this EDT procedure are i n the results section. ABORH TYPE MANUAL STAT 01/17/2022 8:50 AM Resu lts for this EDT procedure are i n the results section. HEMOGRAM STAT 01/17/2022 8:50 AM Hypomagnesemi a Results for this EDT STACIE (acute kidney procedure are in injury) the results H/O Clostridium section. 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 in neoplastic disea se Weakness acquired in ICU S/P allogeneic bone marrow transplan t Dehydration DIFFERENTIAL, STAT 01/17/2022 8:50 AM Hypomagnesemi a Results for this AUTOMATED EDT STACIE (acute kidney procedure are in injury) the results H/O Clostridium section. 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 in neoplastic disea se Weakness acquired in ICU S/P allogeneic bone marrow transplan t Dehydration HC PCH EBV QUANT Routine 01/17/2022 8:50 AM S/P allogeneic bon e Results for this [facility] EDT marrow transplant procedure are in the results section. HC FK-506 (TACROLIMUS) Routine 01/17/2022 8:50 AM S/P allogene ic bone Results for this EDT marrow transplant procedure are in the results section. HC CMV QUANT Routine 01/17/2022 8:50 AM S/P allogeneic bone Re sults for this EDT marrow transplant procedure are in the results section. HC CBC,PLT & AUTO DIFF STAT 01/17/2022 8:50 AM Hypoma gnesemia EDT STACIE (acute kidney injury) H/O Clostridium 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 in neoplastic disea se Weakness acquired in ICU S/P allogeneic bone marrow transplan t Dehydration HC MAGNESIUM, SERUM Routine 01/17/2022 8:50 AM Hypomagne semia Results for this EDT STACIE (acute kidney procedure are in injury) the results H/O Clostridium section. 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 in neoplastic disea se Weakness acquired in ICU S/P allogeneic bone marrow transplan t Dehydration HC IGG, SERUM Routine 01/17/2022 8:50 AM S/P allogeneic bone R esults for this EDT marrow transplant procedure are in the results section. COMPREHENSIVE Routine 01/17/2022 8:50 AM Hypomagnesemi a Results for this METABOLIC PANEL EDT STACIE (acute kidney procedu re are in (NON-FASTING) injury) the results H/O Clostridium section. 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 in neoplastic disea se Weakness acquired in ICU S/P allogeneic bone marrow transplan t Dehydration documented in this encounter Results Type and Screen Validity (01/17/2022 8:50 AM EDT) Patholo gist Method Time Signature T&S only valid [facility] LABORATORY Comment: This Type and Screen result is only valid at the [facility] Hospital Specimen Anatomical Collection Method Collection Time Receive d Time (Source) Location / / Volume Laterality Blood Venous Draw / 01/17/2022 8:50 AM 01/18/20 22 9:20 Unknown EDT AM EDT Resulting Agency Comment Spec In Lab Parviz Modi MD BLOOD BANK ORDERABLES Performing Organization Address City/[facility]/ZIP Code Phon e Number [address] ABORH Recheck Status (01/17/2022 8:50 AM EDT) [facility] gist Method Time Signature ABORH Type Completed [facility] LABORATORY Specimen Anatomical Collection Method Collection Time Receive d Time (Source) Location / / Volume Laterality Blood Venous Draw / 01/17/2022 8:50 AM 01/18/20 22 9:20 Unknown EDT AM EDT Resulting Agency Comment Spec In Lab Parviz Modi MD BLOOD BANK ORDERABLES Performing Organization Address City/[facility]/ZIP Code Phon e Number [address] Antibody screen manual (01/17/2022 8:50 AM EDT) [facility] Signature AB Screen Negative [facility] LABORATORY Specimen Anatomical Collection Method Collection Time Receive d Time (Source) Location / / Volume Laterality Blood Venous Draw / 01/17/2022 8:50 AM 01/18/20 22 9:20 Unknown EDT AM EDT Resulting Agency Comment Spec In Lab Parviz Modi MD BLOOD BANK ORDERABLES Performing Organization Address City/[facility]/ZIP Code Phon e Number [address] ABORh Type Manual (01/17/2022 8:50 AM EDT) [facility] gist Method Time Signature Expires at 01/20/2022 JIA MARX [id number] on: [facility] LABORATORY ABORh Type O Neg [facility] LABORATORY Specimen Anatomical Collection Method Collection Time Receive d Time (Source) Location / / Volume Laterality Blood Venous Draw / 01/17/2022 8:50 AM 01/18/20 22 9:20 Unknown EDT AM EDT Resulting Agency Comment Spec In Lab Parviz Modi MD BLOOD BANK ORDERABLES Performing Organization Address City/State/[place] [address] (ABNORMAL) Differential, Automated (01/17/2022 8:50 AM EDT) [facility] Method Time Signature Neutrophils % 83.9 % [facility] LABORATORY Neutr Abs (ANC) 8.28 (H) 1.70 - [facility] 6.10 [facility] x10(3)/[facility] LABORATORY Lymphocytes % 9.2 % [facility] LABORATORY Lymphocytes Abs 0.9 0.9 - 3.2 [facility] x10(3)/[facility] LABORATORY Monocytes % 4.8 % [facility] LABORATORY Monocyte Abs 0.5 0.3 - 0.9 [facility] x10(3)/[facility] LABORATORY Eosinophils % 0.8 % [facility] LABORATORY Eosinophils Abs 0.1 0.0 - 0.4 [facility] x10(3)/[facility] LABORATORY Basophils % 0.1 % [facility] LABORATORY Basophils Abs 0.0 0.0 - 0.1 [facility] x10(3)/[facility] LABORATORY Immature Gran % 1.20 % [facility] LABORATORY Comment: Immature granulocytes(IG's)percentage an d absolute count will include metamyelocytes, myelocytes, and promyelo cytes. Blood smears from CBCs yielding IG's will be scanned manually for concor dance. If this scan disagrees with the automated IG or if promyelocytes are not ed, a manual differential will be performed. Zara Gran Abs 0.12 (H) 0.00 - 0.04 x10(3)/[facility] LABORATORY Specimen Anatomical Collection Method Collection Time Receive d Time (Source) Location / / Volume Laterality Blood 01/17/2022 8:50 AM 2 9:14 EDT AM EDT Resulting Agency Comment Spec In Lab Parviz Modi MD HEMATOLOGY ORDERABLES Performing Organization Address City/State/[place] [address] (ABNORMAL) Hemogram (01/17/2022 8:50 AM EDT) [facility] gist Method Time Signature WBC 9.9 (H) 4.0 - 9.5 [facility] x10(3)/[facility] LABORATORY RBC 2.47 (L) 4.58 - JIA ARASELI 5.54 [facility] x10(6)/[facility] LABORATORY Hemoglobin 8.6 (L) 13.7 - [facility] 16.5 g/dL [facility] LABORATORY Hematocrit 25.1 (L) 40.5 - [facility] 48.5 % [facility] LABORATORY MCV 101.6 (H) 82.9 - [facility] 93.1 [facility] LABORATORY MCH 34.8 (H) 27.5 - [facility] 32.1 pg [facility] LABORATORY MCHC 34.3 32.0 - [facility] 35.7 g/dL [facility] LABORATORY Platelets 87 (L) 145 - 357 [facility] x10(3)/[facility] LABORATORY RDWSD 56.7 (H) 36.0 - [facility] 45.0 [facility] LABORATORY RDWCV 16.3 (H) 11.4 - [facility] 13.8 % [facility] LABORATORY MPV 12.0 7.6 - 12.9 [facility] LABORATORY nRBC % Auto 0.6 % [facility] LABORATORY nRBC Abs Auto 0.060 (H) 0.000 - [facility] 0.000 [facility] x10(3)/[facility] LABORATORY Specimen Anatomical Collection Method Collection Time Receive d Time (Source) Location / / Volume Laterality Blood 01/17/2022 8:50 AM 2 9:14 EDT AM EDT Resulting Agency Comment Spec In Lab Parviz Modi MD HEMATOLOGY ORDERABLES Performing Organization Address City/State/[place] [address] CMV PCR, Quantitative (01/17/2022 8:50 AM EDT) [facility] Method Time Signature CMV Quant Not Detected Not Detected JIA (Numeric) IU/mL [facility] LABORATORY Comment: Indication for Study: [...] (Source) Location / / Volume Laterality Blood 01/17/2022 8:50 AM 7:48 EDT AM EDT Resulting Agency Comment Spec In Lab Parviz Modi MD IMMUNOLOGY ORDERABLES Performing Organization Address City/State/[place] [address] (ABNORMAL) EBV PCR Quantitative (01/17/2022 8:50 AM EDT) [facility] Signature EBV DNA BY <35 (A) Undetected JIA [place] PCR IU/mL [facility] LABORATORY Comment: Result in log IU/mL is <1.54. EBV DNA is detected, but level present i s <35 IU/mL (<1.54 log IU/mL). This assay cannot accurately quantify EBV DNA below this level. ADDITIONAL INFORMATIO N The quantification range of this assay i s 35 to 100,000,000 IU/mL (1.54 log to 8.00 log IU/mL). Test ing was performed using the jasmeet EBV test ([employer] with the jasmeet 6800 System. Test Performed by: [facility] [address] [id number] Newspaper Photographer: Randal Aparicio M.D. Ph. D.; IA# [id number] Specimen Anatomical Collection Method Collection Time Receive d Time (Source) Location / / Volume Laterality Blood 01/17/2022 8:50 AM 2 EDT 10:03 AM EDT Resulting Agency Comment Spec In Lab Parviz Modi MD IMMUNOLOGY ORDERABLES Performing Organization Address City/[facility]/[place] [address] IgG (01/17/2022 8:50 AM EDT) athologist Signature IgG 772 700 - 1,600 [facility] mg/dL [facility] LABORATORY Comment: Pediatric Reference Intervals obtained f rom the Caliper Reference Interval project. [email or web address]/[email or web address] Specimen Anatomical Collection Method Collection Time Receive d Time (Source) Location / / Volume Laterality Blood 01/17/2022 8:50 AM 2 9:14 EDT AM EDT Resulting Agency Comment Spec In Lab Parviz Modi MD IMMUNOLOGY ORDERABLES Performing Organization Address City/[facility]/[place] [address] Tacrolimus level (01/17/2022 8:50 AM EDT) athologist Signature Tacrolimus Lvl 8.4 ng/mL [facility] LABORATORY Comment: Trough therapeutic range is [...] (Source) Location / / Volume Laterality Blood 01/17/2022 8:50 AM 2 9:14 EDT AM EDT Resulting Agency Comment Spec In Lab Parviz Modi MD CHEMISTRY ORDERABLES Performing Organization Address City/[facility]/ZIP Code [place] [address] (ABNORMAL) Comprehensive metabolic panel (non-fasting) (01/17/2022 8:50 AM EDT) athologist Signature Glucose Lvl 130 65 - 199 [facility] mg/dL [facility] LABORATORY Comment: Diabetes: >=200 mg/dL plus symp toms BUN 58 (H) 10 - 20 mg/dL [facility] LABORATORY Creatinine 1.95 (H) 0.80 - 1.50 mg/dL [facility] LABORATORY Sodium 137 135 - 145 mmol/L [facility] LABORATORY Potassium 5.3 (H) 3.5 - 5.0 mmol/L [facility] LABORATORY Comment: Please note: ??Patients with WBC >100,00 0 may have falsely elevated Potassium levels. ??For accurate Potassium quantif ication in these patients send serum separator tube (gold top) for subsequent determinations. ??Contact the Clinical Chemistry Laboratory if there are any qu estions. Chloride 104 98 - 107 mmol/L [facility] LABORATORY CO2 17 (L) 22 - 31 mmol/L [facility] LABORATORY Anion Gap 16 (H) 5 - 15 mmol/L [facility] LABORATORY Calcium 9.1 8.5 - 10.5 mg/dL [facility] LABORAT[facility] Total Protein 6.1 6.1 - 8.0 g/dL [facility] LABORAT[facility] Albumin 3.6 3.2 - 5.2 g/dL [facility] LABORATORY AST 17 0 - 39 unit/L [facility] LABOR[facility] ALT 19 0 - 55 unit/L [facility] LABOR[facility] Alk Phos 130 40 - 130 unit/L [facility] LABORATORY Total Bilirubin 0.4 0.2 - 1.3 mg/dL [facility] LABORATORY Estimated GFR 36 (L) >=60 mL/min/1.73 m?? [facility] LABORATORY Comment: This patient? s estimated glomerular filtration rate (eGFR) is between 36 mL/min/1.73 m2 (patients with less muscl e mass per kg body weight) and 42 mL/min/1.73 m2 (patients with more muscl e [...] (Source) Location / / Volume Laterality Blood 01/17/2022 8:50 AM 2 9:14 EDT AM EDT Resulting Agency Comment Spec In Lab Parviz Modi MD CHEMISTRY ORDERABLES Performing Organization Address City/[facility]/[place] [address] Magnesium (01/17/2022 8:50 AM EDT) athologist Signature Magnesium 0.72 0.69 - 1.07 [facility] mmol/L [facility] LABORATORY Specimen Anatomical Collection Method Collection Time Receive d Time (Source) Location / / Volume Laterality Blood 01/17/2022 8:50 AM 2 9:14 EDT AM EDT Resulting Agency Comment Spec In Lab Parviz Modi MD CHEMISTRY ORDERABLES Performing Organization Address City/[facility]/ZIP [facility] [place] [address] documented in this encounter Visit Diagnoses Diagnosis Anemia in neoplastic disease Hypomagnesemia Disorders of magnesium metabolism STACIE (acute kidney injury) Acute kidney failure, unspecified H/O Clostridium difficile infection Personal history of other infectious and parasitic disease 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 status Acute leukemia in remission Acute leukemia of unspecified cell type in remission Weakness acquired in ICU S/P allogeneic bone marrow transplant Bone marrow replaced by transplant Dehydration documented in this encounter Administered Medications Inactive Administered Medications - up to 3 most recent administrations Medication Order MAR Action Action Date Dose Rate Site heparin (pf) (porcine) (100 Given 01/17/2022 1:47 PM EDT 500 Uni ts units/mL) flush 5 mL syringe 500 Units 500 Units, Intravenous, ONCE PRN, Starting on Thu01/17/22 at 1304, Until 01/18/22 at 0433, Line Care, Routine sodium chloride 0.9 % (flush) (BD PosiFlush Given 01/17/2022 9:00 AM EDT 20 mLs Normal Saline 0.9) flush 10-20 mL 10-20 mL, Intravenous, EVERY 1 MIN PRN, Starting on Thu01/17/22 at 0813, Until 01/18/22 at 0433, [employer] Secretary, Routine sodium chloride 0.9% infusion New Bag 01/17/2022 11:33 AM EDT 500 mL/hr 500 mL/hr 500 mL/hr, Intravenous, CONTINUOUS, Starting on Thu01/17/22 at 1130, Until 01/18/22 at 0433, 500 mg over 2 hours documented in this encounter Additional Health Concerns Infection Onset Date Last Indicated Resolved Time History of C. difficileComment: C. diffiicile 08/20/2021 testing positive 05/25/21. documented as of this encounter Care Teams Lining Inserter Relationship Specialty Start Date End Date Beatriz Maurice PA PCP - General Family Medicine 05/06/21 [address] [place] [address] documented as of this encounter
--- OUTSIDE RECORDS SUMMARY | 2022-02-14 11:07 | XMS_ITS | Encounter Summary ---
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 His VNA services were not resumed at discharge. This RN called him today to follow up post discharge. ?? Herber continues to have difficulty with his ostomy seal due to skin breakdown around the stoma. ?? He is extremely fatigued and deconditioned. He is requiring two assists from [facility] to amb[facility] short distances with walker and SBA. His caregiver follows with a chair. ?? His oral intake has much improved! He is eating and drinking fluids! ?? Morales and Herber feel strongly that he needs an acute rehab for strengthening. ?? He will be seen tomorrow in Dr. Modi's clinic. A: Morales and Herber agree to the plan. P: RTC 01/17 for evaluation Continue to provide supportive care as needed. documented in this encounter Plan of Treatment Upcoming Encounters Date Type Specialty Care Team Description 02/18/2022 Infusion Hematology and Oncology 02/21/2022 Infusion Hematology and Oncology 02/24/2022 Appointment Hematology and Oncology 02/24/2022 Office Visit Hematology and Oncology Parviz Modi MD [facility] DR HEMATOLOGY/[place] [address] Miroslava Pelayo APRN [facility] DR HEMATOLOGY/[place] [address] 02/24/2022 Office Visit Wound Care 02/24/2022 Appointment Hematology and Oncology 02/26/2022 Office Visit Neurology Leni Bustamante MD [facility] NEUROLOGY DEPT. [place], [place] [address] (Wo rk) documented as of this encounter Visit Diagnoses Not on filedocumented in this encounter Additional Health Concerns Infection Onset Date Last Indicated Resolved Time History of C. difficileComment: C. diffiicile 08/20/2021 testing positive 05/25/21. documented as of this encounter Care Teams Diffusion Furnace Operator Relationship Specialty Start Date End Date Beatriz Maurice PA PCP - General Family Medicine 05/06/21 [address] [place] [address] documented as of this encounter
--- OUTSIDE RECORDS SUMMARY | 2022-02-14 11:07 | XMS_ITS | Encounter Summary ---
:1960 Author Organization [facility] Address [facility] [place] [address] Care Team Providers Name Role Phone Beatriz Maurice Primary Care Provider Encounter Details Date Type Department Care Team Description 01/20/2022 Hospital Encounter Hematology and Hypomag nesemia; Oncology at [facility] STACIE (acute kidney injury); [facility] Thrombocy topenia; Drive Anemia in neoplastic disease ; [place] [address] Weakness acquired in ICU; [phone] Debility; H/O Clostridium difficile infection; Colostomy in [...] (/) of Adapt Attention to Convex Ring #[id number] per ileostomy month. Patient it to use [...] with food. Colostomy Belt Dispense 1 Sensura [place] 1 each 11 2 (Ostomy Belt Medium) [...] 30 minutes prior to access. Ostomy Supplies [facility] Dispense 2 boxes ( 20 each 022 10/box) of Adapt Barrier rings #[id number] per month. Ostomy Supplies Dispense 1 bottle of 28.3 g 5 08/20/2021 Powder Adapt stoma powder #7906 every other month. Ostomy Supplies [facility] Dispense 2 boxes 20 each 11 2 (10/box) of Sensura Flako Soft Convex One-piece Pouch #[id number] per month. Ostomy Supplies [facility] Dispense 2 boxes 40 each 2 (20/box) of Brava Elastic Barrier strips #[id number] per month. Ostomy Supplies [facility] Dispense 1 box 50 each 08/20/2021 (50/box) [...] encounter Progress Notes Christine Patterson RN - 01/20/2022 11:47 AM EDT Patient Name: Herber Iverson Jr. Patient Age: 61 y.o. Birthdate: 1960 Admit date: 01/20/2022 Attending Physician: No att. providers found Access visit. See MAR and/or flowsheet. documented in this encounter Plan of Treatment Upcoming Encounters Date Type Specialty Care Team Description 02/18/2022 Infusion Hematology and Oncology 02/21/2022 Infusion Hematology and Oncology 02/24/2022 Appointment Hematology and Oncology 02/24/2022 Office Visit Hematology and Oncology Parviz Modi MD [facility] DR HEMATOLOGY/[place] [address] Miroslava Pelayo, ENVIRONMENTAL QUALITY ANALYST [facility] DR HEMATOLOGY/[place] [address] 02/24/2022 Office Visit Wound Care 02/24/2022 Appointment Hematology and Oncology 02/26/2022 Office Visit Neurology Leni Bustamante MD [facility] ER NEUROLOGY DEPT. [place], [place] [address] (Wo rk) documented as of this encounter Procedures Procedure Name Priority Date/Time Associated Comments Diagnosis TYPE AND SCREEN STAT 01/20/2022 11:45 Results for this VALIDITY AM EDT procedure are i n the [...] i n the results section. HEMOGRAM STAT 01/20/2022 11:45 Hypomagnesemia Results for this AM EDT STACIE (acute kidney procedure are in injury) the results H/O Clostridium section. 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 in neoplastic disea se Weakness acquired in ICU S/P allogeneic bone marrow transplan t Dehydration DIFFERENTIAL, STAT 01/20/2022 11:45 Hypomagnesemia Results for this AUTOMATED AM EDT STACIE (acute kidney procedure are [...] in ICU Debility HC CMV QUANT Routine 01/20/2022 11:45 S/P [...] transplan t Dehydration HC IGG, SERUM Routine 01/20/2022 11:45 S/P allogeneic bone Res ults for this AM EDT marrow transplant procedure are in the results section. COMPREHENSIVE Routine 01/20/2022 11:45 Hypomagnesemia Results for this METABOLIC PANEL AM EDT STACIE (acute kidney procedu re are in (NON-FASTING) injury) the results H/O Clostridium section. 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 in neoplastic disea se Weakness acquired in ICU S/P allogeneic bone marrow transplan t Dehydration documented in this encounter Results Type and Screen Validity (01/20/2022 11:45 AM EDT) [facility] Method Time Signature T&S only valid [facility] LABORATORY Comment: This Type and Screen result is only valid at the [facility] Hospital Specimen Anatomical Collection Method Collection Time Receive d Time (Source) Location / / Volume Laterality Blood Venous Draw / 01/20/2022 11:45 01/20/2022 Unknown AM EDT 11:53 AM EDT Resulting Agency Comment Spec In Lab Parviz Modi MD BLOOD BANK ORDERABLES Performing Organization Address City/State/[place] [address] ABORH Recheck Status (01/20/2022 11:45 AM EDT) [facility] Method Time Signature ABORH Type Completed [facility] LABORATORY Specimen Anatomical Collection Method Collection Time Receive d Time (Source) Location / / Volume Laterality Blood Venous Draw / 01/20/2022 11:45 01/20/2022 Unknown AM EDT 11:53 AM EDT Resulting Agency Comment Spec In Lab Parviz Modi MD BLOOD BANK ORDERABLES Performing Organization Address City/State/[place] [address] Antibody screen manual (01/20/2022 11:45 AM EDT) Analysis Performed At [facility] logist Time Signature AB Screen Negative [facility] LABORATORY Specimen Anatomical Collection Method Collection Time Receive d Time (Source) Location / / Volume Laterality Blood Venous Draw / 01/20/2022 11:45 01/20/2022 Unknown AM EDT 11:53 AM EDT Resulting Agency Comment Spec In Lab Parviz Modi MD BLOOD BANK ORDERABLES Performing Organization Address City/[facility]/[place] [address] ABORh Type Manual (01/20/2022 11:45 AM EDT) [facility] gist Method Time Signature Expires at 01/23/2022 JIA PIERREARASELI 2359 on: [facility] LABORATORY ABORh Type O Neg [facility] LABORATORY Specimen Anatomical Collection Method Collection Time Receive d Time (Source) Location / / Volume Laterality Blood Venous Draw / 01/20/2022 11:45 01/20/2022 Unknown AM EDT 11:53 AM EDT Resulting Agency Comment Spec In Lab Parviz Modi MD BLOOD BANK ORDERABLES Performing Organization Address City/State/[place] [address] (ABNORMAL) Differential, Automated (01/20/2022 11:45 AM EDT) [facility] gist Method Time Signature Neutrophils % 82.9 % [facility] LABORATORY Neutr Abs (ANC) 6.38 (H) 1.70 - [facility] 6.10 [facility] x10(3)/[facility] L LABORATORY Lymphocytes % 9.2 % [facility] LABORATORY Lymphocytes Abs 0.7 (L) 0.9 - 3.[address] [facility] x10(3)/[facility] LABORATORY Monocytes % 5.3 % [facility] LABORATORY Monocyte Abs 0.4 0.3 - 0.[address] [facility] x10(3)/[facility] LABORATORY Eosinophils % 0.8 % [facility] LABORATORY Eosinophils Abs 0.1 0.0 - 0.[address] [facility] x10(3)/[facility] LABORATORY Basophils % 0.1 % [facility] LABORATORY Basophils Abs 0.0 0.0 - 0.[address] [facility] x10(3)/[facility] LABORATORY Immature Gran % 1.70 % [facility] LABORATORY Comment: Immature granulocytes(IG's)percentage an d absolute count will include metamyelocytes, myelocytes, and promyelo cytes. Blood smears from CBCs yielding IG's will be scanned manually for concor dance. If this scan disagrees with the automated IG or if promyelocytes are not ed, a manual differential will be performed. Zara Gran Abs 0.13 (H) 0.00 - 0.04 x10(3)/[facility] LABORATORY Specimen Anatomical Collection Method Collection Time Receive d Time (Source) Location / / Volume Laterality Blood 01/20/2022 11:45 01/20/2022 AM EDT 11:56 AM EDT Resulting Agency Comment Spec In Lab Parviz Modi MD HEMATOLOGY ORDERABLES Performing Organization Address City/State/ZIP Code Phon e Number [place] [phone] HOSPITAL LAB[address]ATORY Drive (ABNORMAL) Hemogram (01/20/2022 11:45 AM EDT) [facility] gist Method Time Signature WBC 7.7 4.0 - 9.[address] [facility] x10(3)/[facility] LABORATORY RBC 2.16 (L) 4.58 - [facility] 5.54 [facility] x10(6)/[facility] LABORATORY Hemoglobin 7.5 (L) 13.[address] - [facility] 16.5 g/dL [facility] LABORATORY Hematocrit 22.1 (L) 40.5 - [facility] 48.5 % [facility] LABORATORY MCV 102.3 (H) 82.9 - [facility] 93.1 fL [facility] LABORATORY MCH 34.7 (H) 27.5 - [facility] 32.1 [facility] LABORATORY MCHC 33.9 32.0 - JIA MARX 35.7 g/dL [facility] LABORATORY Platelets 77 (L) 145 - 357 JIA PIERREARASELI x10(3)/[facility] LABORATORY RDWSD 56.1 (H) 36.0 - [facility] ARASELI 45.0 [facility] LABORATORY RDWCV 17.4 (H) 11.[address] - [facility] 13.8 % [facility] LABORATORY MPV 11.4 7.6 - 12.9 [facility] LABORATORY nRBC % Auto 1.0 % [facility] LABORATORY nRBC Abs Auto 0.080 (H) 0.000 - [facility] 0.000 [facility] x10(3)/[facility] LABORATORY Specimen Anatomical Collection Method Collection Time Receive d Time (Source) Location / / Volume Laterality Blood 01/20/2022 11:45 01/20/2022 AM EDT 11:56 AM EDT Resulting Agency Comment Spec In Lab Parviz Modi MD HEMATOLOGY ORDERABLES Performing Organization Address City/State/[place] [address] CMV PCR, Quantitative (01/20/2022 11:45 AM EDT) [facility] Method Time Signature CMV Quant Not Detected Not Detected JIA (Numeric) IU/mL [facility] LAB[facility] Comment: Indication for Study: Monitoring CMV [...] (Source) Location / / Volume Laterality Blood 01/20/2022 11:45 01/22/2022 7:52 AM EDT AM EDT Resulting Agency Comment Spec In Lab Parviz Modi MD IMMUNOLOGY ORDERABLES Performing Organization Address City/State/[place] [address] IgG (01/20/2022 11:45 AM EDT) athologist Signature IgG 718 700 - 1,600 [facility] mg/dL [facility] LABORATORY Comment: Pediatric Reference Intervals obtained f rom the Caliper Reference Interval project. http://[email or web address].ca/caliperp roject/index.html Specimen Anatomical Collection Method Collection Time Receive d Time (Source) Location / / Volume Laterality Blood 01/20/2022 11:45 01/20/2022 AM EDT 11:56 AM EDT Resulting Agency Comment Spec In Lab Parviz Modi MD IMMUNOLOGY ORDERABLES Performing Organization Address City/State/[place] [address] (ABNORMAL) Comprehensive metabolic panel (non-fasting) (01/20/2022 11:45 AM EDT) athologist Signature Glucose Lvl 124 65 - 199 [facility] mg/dL [facility] LABORATORY Comment: Diabetes: >=200 mg/dL plus symp toms BUN 62 (H) 10 - 20 mg/dL [facility] LABORATORY Creatinine 2.32 (H) 0.80 - 1.50 mg/dL [facility] LABORATORY Sodium 135 135 - 145 mmol/L [facility] LABORATORY Potassium 5.3 (H) 3.5 - 5.0 mmol/L [facility] LABORATORY Comment: Please note: ??Patients with WBC >100,00 0 may have falsely elevated Potassium levels. ??For accurate Potassium quantif ication in these patients send serum separator tube (gold top) for subsequent determinations. ??Contact the Clinical Chemistry Laboratory if there are any qu estions. Chloride 106 98 - 107 mmol/L [facility] LABORATORY CO2 17 (L) 22 - 31 mmol/L [facility] LABORATORY Anion Gap 12 5 - 15 mmol/L [facility] LABORATORY Calcium 9.0 8.5 - 10.5 mg/dL [facility] LABORATORY Total Protein 5.4 (L) 6.1 - 8.0 g/dL [facility] LABORATORY Albumin 3.3 3.2 - 5.2 g/dL [facility] LABORATORY AST 14 0 - 39 unit/L [facility] LABORATORY ALT 15 0 - 55 unit/L [facility] LABORATORY Alk Phos 113 40 - 130 unit/L [facility] LABORATORY Total Bilirubin 0.3 0.2 - 1.3 mg/dL [facility] LABORATORY Estimated GFR 29 (L) >=60 mL/min/1.73 m?? [facility] LABORATORY Comment: This patient? s estimated glomerular filtration rate (eGFR) is between 29 mL/min/1.73 m2 (patients with less muscl e mass per kg body weight) and 34 mL/min/1.73 m2 (patients with more muscl e [...] (Source) Location / / Volume Laterality Blood 01/20/2022 11:45 01/20/2022 AM EDT 11:56 AM EDT Resulting Agency Comment Spec In Lab Parviz Modi MD CHEMISTRY ORDERABLES Performing Organization Address City/State/[place] [address] (ABNORMAL) Magnesium (01/20/2022 11:45 AM EDT) P athologist Signature Magnesium 0.61 (L) 0.69 - 1.[address] [facility] mmol/L [facility] LABORATORY Specimen Anatomical Collection Method Collection Time Receive d Time (Source) Location / / Volume Laterality Blood 01/20/2022 11:45 01/20/2022 AM EDT 11:56 AM EDT Resulting Agency Comment Spec In Lab Parviz Modi MD CHEMISTRY ORDERABLES Performing Organization Address City/State/ZIP Code Phon e Number [address] Tacrolimus level (01/20/2022 11:45 AM EDT) P athologist Signature Tacrolimus Lvl 7.6 ng/mL [facility] LABORATORY Comment: Trough therapeutic range [...] (Source) Location / / Volume Laterality Blood 01/20/2022 11:45 01/20/2022 AM EDT 11:56 AM EDT Resulting Agency Comment Spec In Lab Parviz Modi MD CHEMISTRY ORDERABLES Performing Organization Address City/[facility]/[place] [address] documented in this encounter [...] sodium chloride 0.9 % (flush) (BD Given 01/20/2022 11:45 AM EDT 20 mLs PosiFlush Normal Saline 0.9) flush 10-20 mL 10-20 mL, Intravenous, EVERY 1 MIN PRN, Starting on 01/20/22 at 1128, Until Thu01/21/22 at 0433, Internal Sales Engineer, Routine documented in this encounter Additional Health Concerns Infection Onset Date Last Indicated Resolved Time History of C. difficileComment: C. diffiicile 08/20/2021 testing positive 05/25/21. documented as of this encounter Care Teams Nightman Relationship Specialty Start Date End Date Beatriz Maurice PA PCP - General Family Medicine 05/06/21 [address] [place] [address] documented as of this encounter
--- OUTSIDE RECORDS SUMMARY | 2022-02-14 11:07 | XMS_ITS | Encounter Summary ---
:1960 Author Organization [facility] Address [facility] [address] [place] [address] Care Team Providers Name Role Phone Beatriz Maurice Primary Care Provider Reason for Visit Reason Comments Follow-up Encounter Details Date Type Department Care Team Description 01/20/2022 Office Visit Hematology and Dilshad Modi Hypoma gnesemia; Oncology at [facility] MD Mars STACIE (acute kidney injury); [facility] ENTER Thrombocytopenia; [facility] HEMATOLOGY/ONCOLOGY Anemia in neoplastic disease ; [place], [place] DEPT. Weakness acquired in ICU; [id number] [place] [address] Debility [phone] (Wo rk) Social History Tobacco Use Types [...] Sign Reading Time Taken Comments Blood Pressure 103/78 01/20/2022 12:22 PM retaken EDT Pulse 90 01/20/2022 12:18 PM EDT Temperature 36.1 ??C (97 ??F) 01/20/2022 12:18 PM EDT Respiratory Rate 20 01/20/2022 12:18 PM EDT Oxygen Saturation 98% 01/20/2022 12:18 PM EDT Inhaled Oxygen - - Concentration Weight 83.5 kg (184 lb) 01/20/2022 12:18 PM Unable to r emove EDT shoes Height 177.8 cm (5' 10) 01/20/2022 12:18 PM EDT Body Mass Index 26.4 01/20/2022 12:18 PM EDT documented in this encounter Progress Notes Dilshad Modi MD - 01/20/2022 12:45 PM EDT HEMATOLOGY/BMT CONSULTATION VISIT NOTE CHIEF COMPLAINT: Herber Iverson Jr. is a 61 y.o. male originally referred by Dr. Beatriz Maurice for evaluation of leukemia. He is seen in follow-up today. Data Review (From Recent Hospital discharge summary and the EMR) Admitted to [facility] 04/29/21 for leukocytosus. 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 08/12/21 LP - FELY 08/26/21 LP [...] VRE, severe mucositis, STACIE 12/13-12/17/21 Admission to [facility] for failure to thrive. 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 01/06/22 Admission for STACIE, possible PNA and altered mental status. Discharged 01/12. Date NPM1 HSCT Day Source Total PMN Hendricks 05/21/21 43% 08/06/21 135% 09/12/21 1.95% 11/22/21 [...] that he went to a clinic in [facility]. He was evaluated for a UTI that was negative. 1 week ago today he saw his PCPwho ended up gatting a CBC showing abnormal counts and he was admitted to [facility]. Other than fatigue has had no fevers, chills or drenching sweats. Has lost a few lbs - <10. Appetite has been down recently. No bleeding or bruising. Was very actived when younger - played a lot of sports into his 40's. 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 He is accompanied today by his [...] been trying to exercise by walking in is house. Since on Mag Oxide more diarrhea - asked if can switch back. Colostomy functioning. loperamide helping? - has been leaking Fluid intake - 60 oz yesterday, 67 oz the day before. 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 Social - has a girlfriend and his [...] (Ostomy Belt Medium) Misc Dispense 1 Sensura [place] Belt #4237 per month. ??? flecainide (TAMBOCOR) 50 mg, Oral, 2 TIMES DAILY ??? fluconazole (DIFLUCAN) 200 mg, Oral, DAILY ??? lidocaine-prilocaine (EMLA) Cream Apply to [facility] approximately 30 minutes prior to access. ??? loperamide (IMODIUM A-D) 2 mg, Oral, 3 TIMES DAILY ??? magnesium oxide (MAG-OX) 400 mg, Oral, 3 TIMES DAILY ??? metoprolol tartrate (LOPRESSOR) 25 mg, Oral, DAILY ??? ondansetron (ZOFRAN) 8 mg, Oral, EVERY 8 HOURS PRN ??? Ostomy Supplies Misc Dispense 2 boxes ( 10/box) of Adapt Barrier rings #8245 per month. ??? Ostomy Supplies Misc Dispense 2 boxes (10/box) of Sensura [place] Soft Convex One-piece Pouch #[id number] month. ??? Ostomy Supplies Misc Dispense 2 boxes (20/box) of Brava Elastic Barrier strips #[id number] per month. ??? Ostomy Supplies Misc Dispense [...] EXAM VITAL SIGNS: There were no vitals taken for this visit. GENERAL: Herber Iverson Jr. is a tired [...] mg/dL Sodium 137 135 - 145 mmol/L Potassium 5.3 (H) 3.5 - 5.0 mmol/L Chloride 104 [...] Abs 0.12 (H) 0.00 - 0.04 x10(3)/mcL ABORh Type Manual Result Value Ref Range Expires at 2359 on: 01/20/2022 ABORh Type O Neg Antibody screen manual Result Value Ref Range AB Screen Interp Negative ABORH Recheck Status Result Value Ref Range ABORH Type Recheck Completed Type and Screen Validity Result Value Ref Range T&S only valid at [facility] Hosp RADIOLOGY - None ASSESSMENT & PLANS [...] allo 2. S/P Colectomy --stool watery / loose.Worse on Mag Ox - will go back to Mag Pro 3. Renal --Creatinine remains elevated [...] --IVIg remains >400 so IVIg not needed Immunization History Administered Date(s) Administered ??? Pneumococcal Polyvalent 23 02/08/2004 ??? Td, adult 08/17/1998 Prophylactic Antibiotic Guidelines per SOP Acyclovir 800 [...] back to work as Herber is requiring [id number] care. JENNIFER Teran is working with Herber and Chai to help with their finances through grants, grocery and gas cards. 7. Summary of Plans ?? 1 liter saline today ?? Continue Tacrolimus - pending level from today ?? May restart Bactrim at next visit ?? Continue Fluconazole at 200 mg / day----> increase to 400 mg if creatinine stays stable ?? oral thrush--->switch to Troches ?? physical therapy to begin at home---> Herber / Morales to f/u with phone call ?? Day ~+60 BM Bx - scheduled for today - orders are in including chimerism and NPM1 MRD testing. ?? --Per Tino et al, Blood 2020 plan to add Idhifa at ~day +60. ?? Nichelle Barnard MSW following ?? Immunizations at 6 months NEEDS NEW REFERRASL TO [employer] - PT and VNA She will call SS need to get DILSHAD MODI MD Section of Hematology [facility] documented in this encounter Plan of Treatment Upcoming Encounters Date Type Specialty Care Team Description 02/18/2022 Infusion Hematology and Oncology 02/21/2022 Infusion Hematology and Oncology 02/24/2022 Appointment Hematology and Oncology 02/24/2022 Office Visit Hematology and Oncology Dilshad Modi MD [facility] [address] HEMATOLOGY/[place] [address] Miroslava Pealyo APRN [facility] [address] HEMATOLOGY/[place] [address] 02/24/2022 Office Visit Wound Care 02/24/2022 Appointment Hematology and Oncology 02/26/2022 Office Visit Neurology Leni Bustamante MD [facility] ER NEUROLOGY DEPT. [place], [place] [address] (Wo rk) Scheduled Orders Name Type Priority Associated Diagnoses Order S chedule Tacrolimus level Lab STAT Hypomagnesemia Twice a Week for 52 STACIE (acute kidne y injury) Occurrences starting Thrombocytopenia 01/17/2022 until Anemia in neoplastic 023, 4 completed disease Weakness acquire d in ICU Debility documented as of this encounter Results Tacrolimus level (02/10/2022 8:45 AM EDT) athologist Signature Tacrolimus Lvl 6.6 ng/mL [facility] LABORATORY Comment: Trough therapeutic range is [...] Resulting Agency Comment Spec In Lab Dilshad Modi MD CHEMISTRY ORDERABLES Performing Organization Address City/[facility]/ZIP Code Phon e Number [address] Tacrolimus level (02/03/2022 7:50 AM EDT) athologist Signature Tacrolimus Lvl 12.1 ng/mL [facility] Comment: Trough therapeutic range is [...] Resulting Agency Comment Spec In Lab Dilshad Modi MD CHEMISTRY ORDERABLES Performing Organization Address City/[facility]/Z[place] [address] Tacrolimus level (01/27/2022 7:35 AM EDT) athologist Signature Tacrolimus Lvl 9.6 ng/mL [facility] Comment: Trough therapeutic range is [...] Resulting Agency Comment Spec In Lab Dilshad Modi MD CHEMISTRY ORDERABLES Performing Organization Address City/[facility] [place] [address] Tacrolimus level (01/20/2022 11:45 AM EDT) athologist Signature Tacrolimus Lvl 7.6 ng/mL [facility] Comment: Trough therapeutic range is [...] Resulting Agency Comment Spec In Lab Dilshad Modi MD CHEMISTRY ORDERABLES Performing Organization Address City/[facility] [place] [address] documented in this encounter Visit Diagnoses Diagnosis Hypomagnesemia Disorders of magnesium metabolism STACIE (acute kidney injury) Acute kidney failure, unspecified Thrombocytopenia Thrombocytopenia, unspecified Anemia in neoplastic disease Weakness acquired in ICU Debility Debility, unspecified documented in this encounter Additional Health Concerns Infection Onset Date Last Indicated Resolved Time History of C. difficileComment: C. diffiicile 08/20/20212 testing positive 05/25/21. documented as of this encounter Care Teams Skin Drier Relationship Specialty Start Date End Date Beatriz Maurice PA PCP - General Family Medicine 05/06/21 [address] [place] [address] documented as of this encounter
--- OUTSIDE RECORDS SUMMARY | 2022-02-14 11:07 | XMS_ITS | Encounter Summary ---
:1960 Author Organization [place] [address] Care Team Providers Name Role Phone Beatriz Maurice Primary Care Provider Reason for Visit Reason Comments Follow-up Attention ileostomy Encounter Details Date Type Department Care Team Description 01/20/2022 Hospital Encounter Hematology and Attenti on [place] [address] Social History Tobacco Use Types Packs/Day [...] Dispense 2 boxes 20 each 01/27/2022 MiscIndications: (10/) of [employer] Attention to Convex Ring #[id number] per ileostomy month. Patient it to use [...] with food. Colostomy Belt Dispense 1 Sensura Humble 1 each 11 2 (Ostomy Belt Medium) Belt #[id number] per month. Misc metoprolol tartrate Take 1 [...] 30 minutes prior to access. Ostomy Supplies [facility] Dispense 2 boxes ( 20 each 022 10/box) of [employer] Barrier rings #7805 per month. Ostomy Supplies Dispense 1 bottle of 28.3 g 5 08/20/2021 Powder [employer] stoma powder #7906 every other month. Ostomy Supplies [facility] Dispense 2 boxes 20 each 2 (10/box) of Sensura Flako Soft Convex One-piece Pouch #[id number] per month. Ostomy Supplies [facility] Dispense 2 boxes 40 each 11 2 (20/box) of Brava Elastic Barrier strips #[id number] per month. Ostomy Supplies [facility] Dispense 1 box 50 each 08/20/2021 (50/box) [...] encounter Progress Notes Serenity Frey RN - 01/20/2022 2:00 PM EDT Clinic Ostomy Progress Note Surgery/Date:??05/28/21??Procedure(s) (LRB): @ILEOSTOMY OR JEJUNOSTOMY, NON TUBE (WRVU 17.59) (N/A) @EXPLORATORY LAPAROTOMY, REOPENING OF RECENT (WRVU 17.63) (N/A)?? Admitted from 10/15/21-11/18/21 for a MUD allo HSCT. Admitted on 01/06/22 as a transfer from OSH for??worsening lethargy in the setting of presumed pneumonia being treated with cefapime.??Discharged 01/12/22 ?? 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 Surgeon:??Dr. Colby Walter Pouching System: Removed #17807 with convex ring #[id number], elastic barrier strips, and belt. Replaced with the same Stoma Appearance: red, budded, more round than oval today. Peristomal Skin: intact, healthy Ostomy Output: thickening up. Patient stated he now empties the pouch 1-2 times per night instead ofconstantly since he began taking two imodium before bed instead of one and stopped taking his mag oxide. Today's visit, teaching and recommendations: I went to see patient in 3K to check on him and see howthe pouch changes and increased imodium we suggested Thursday worked out. He stated that he did not have any leakage overnight throughout the weekend, but did leak Thursday morning before his shower, so the changed it. This pouch was still on today, so I removed it to check the seal and it was very good! No sign of undermining or leakage. I suggested patient continue with the convex ring on the soft convex pouch and change every other day to prevent leakage and get consistent wear time for now. Patient orders from [facility] and would like a fax for the convex ring sent to them so that he can order more. They have 3 left at home. I will send that fax today. F/u: 2 weeks documented in this encounter Plan of Treatment Upcoming Encounters Date Type Specialty Care Team Description 02/18/2022 Infusion Hematology and Oncology 02/21/2022 Infusion Hematology and Oncology 02/24/2022 Appointment Hematology and Oncology 02/24/2022 Office Visit Hematology and Oncology Parviz Modi MD [facility] DR HEMATOLOGY/[place] [address] Miroslava Pelayo APRN [facility] DR HEMATOLOGY/[place] [address] 02/24/2022 Office Visit Wound Care 02/24/2022 Appointment Hematology and Oncology 02/26/2022 Office Visit Neurology Leni Bustamante MD [facility] ER NEUROLOGY DEPT. [place], [place] [address] (Wo rk) documented as of this encounter Visit Diagnoses Diagnosis Attention to ileostomy documented in this encounter Additional Health Concerns Infection Onset Date Last Indicated Resolved Time History of C. difficileComment: C. diffiicile 08/20/2021 testing positive 05/25/21. documented as of this encounter Care Teams Market President Relationship Specialty Start Date End Date Beatriz Maurice PA PCP - General Family Medicine 05/06/21 [address] [place] [address] documented as of this encounter
--- OUTSIDE RECORDS SUMMARY | 2022-02-14 11:07 | XMS_ITS | Encounter Summary ---
:1960 Author Organization [facility] [place] [address] Care Team Providers Name Role Phone Beatriz Maurice Primary Care Provider Encounter Details Date Type Department Care Team Description 01/20/2022 Orders Only Wound Care at [facility] Attent ion to ileostomy [facility] Janelle RN (Primary Dx) [place] [phone] Social History Tobacco Use Types Packs/Day [...] Progress Notes Serenity Frey RN - 01/20/2022 3:51 PM EDT Fax to [facility] documented in this encounter Plan of Treatment Upcoming Encounters Date Type Specialty Care Team Description 02/18/2022 Infusion Hematology and Oncology 02/21/2022 Infusion Hematology and Oncology 02/24/2022 Appointment Hematology and Oncology 02/24/2022 Office Visit Hematology and Oncology Parviz Modi MD [facility] DR HEMATOLOGY/[place] [address] Miroslava Pelayo APRN [facility] DR HEMATOLOGY/[place] [address] 02/24/2022 Office Visit Wound Care 02/24/2022 Appointment Hematology and Oncology 02/26/2022 Office Visit Neurology Leni Bustamante MD [facility] NEUROLOGY DEPT. [place], [place] [address] (Wo rk) documented as of this encounter Visit Diagnoses Diagnosis Attention to ileostomy - Primary documented in this encounter Additional Health Concerns Infection Onset Date Last Indicated Resolved Time History of C. difficileComment: C. diffiicile 08/20/2021 testing positive 05/25/21. documented as of this encounter Care Teams Digital Marketing Intern Relationship Specialty Start Date End Date Beatriz Maurice PA PCP - General Family Medicine 05/06/21 [address] [place] [address] documented as of this encounter
--- OUTSIDE RECORDS SUMMARY | 2022-02-14 11:08 | XMS_ITS | Encounter Summary ---
:1960 Author Organization [place] [place] [address] Care Team Providers Name Role Phone Beatriz Maurice Primary Care Provider Reason for Visit Auth/Cert Specialty Diagnoses / Procedures Referred By Contact Refer red To Contact Diagnoses Sepsis Fever Procedures EMERGENCY IPI Referral ID Status Reason Start Date Expiration Date Visits Requ ested Visits Authorized [id number] 1 1 Encounter Details Date Type Department Care Team Description 01/06/2022 - Hospital Hematology [facility] Jossue Mcgill MD [facility] DR HEMATOLOGY/[place] [address] Paroxysmal atrial fibrillation; 01/14/2022 Encounter Care Unit Parviz Almanzar MD [facility] DR HEMATOLOGY/[place] [address] Acute myeloid leukemia in remission [facility] Miguel Angel Archer MD [facility] [place] [address] [place] [id number] Social History Tobacco Use Types Packs/Day Years [...] Sign Reading Time Taken Comments Blood Pressure 91/59 01/14/2022 11:44 AM RN notified EDT Pulse 98 01/14/2022 8:07 AM EDT Temperature 36.7 ??C (98.1 ??F) 01/14/2022 11:44 AM EDT Respiratory Rate 18 01/14/2022 11:44 AM EDT Oxygen Saturation 99% 01/14/2022 11:44 AM EDT Inhaled Oxygen Concentration - - Weight 78.9 kg (173 lb 15.1 01/13/2022 3:58 AM oz) EDT Height 176 cm (5' 9.29) 01/06/2022 9:51 PM EDT Body Mass Index 25.47 01/06/2022 9:51 PM EDT documented in this encounter Discharge Summaries Hortensia Tenorio MD - 01/14/2022 10:43 AM EDT Images from the original note were not included. Discharge Summary Patient Name: Herber Iverson Jr. Patient Age: 61 y.o. Language: Thai Race: White Ethnicity: Not nor Admit date: 01/06/2022 Discharge date and time: 01/12/2022 Attending Physician: Miguel Angel Archer MD Discharge Physician: Sundar Ludwig M.D. 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 On arrival he was encephalopathic, and non-verbal. He has cleared from his encephalopathy, which we suspect was multifactorial in etiology. Follow-up Recommendations for Providers: Mr. Iverson had his tacrolimus dose increased from (1mg/0.5mg daily) to 1mg in the morning and 1.5mg at night, based on his most recent tacrolimus level (2.8 --> 3.8 from 01/13). Please follow up next tacro lvl and adjust dose prn the outpatient setting. We suspect a component of Mr. Iverson's decline was secondary to pre-renal azotemia caused 2/2 dehydration. We suspect this may be in part to due to his ostomy output. At home he will take daily weights,with a goal of net even, and will increase his PO intake to match his weight. He will also be set upfor Bi- weekly visits for labs and fluids as an outpatient. Please check a BMP at these follow ups. Mr. 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 Discharged on 30mg prednisone daily. Inpatient Provider Contact Information: #Heme Onc Team A - Pager [phone] Discharge Diagnoses (Hospital Problems) and Secondary Diagnoses (Chronic Problems): Multifactorial Encephalopathy STACIE Dehydration Mild - Protien calorie malnutrition Operations/Major Procedures: N/A History of Presentation: HPI: Mr. 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 He presented to an OSH with AMS??and unresponsiveness??at the beginning of this week??and admitted for??dehydration and acute??on chronic??CKD. He was fluid resucitated and his symptoms improved. On 01/04 Mr. Iverson developed??a fever to 38.7C with associated fatigue. Work up with imaging showed XR evidence of PNA. He was started on cefepime given his hx of transplant, he was not neutropenic. ?? 01/05, patient was noted to be less alert and not oriented, with decreased PO, did not recognize family. Still with fevers to??37.9 earlier today. Exam per OSH he can respond briefly with yes/no noddingbut was very lethargic and unable to sustain attention, new nonspecific rash noted. Antibiotics werebroadened to vancomycin. Vital signs: BP 106/70, HR 100, T 37.9 ?? Here at the [facility], patient is mute and does not speak. Interactions with the patient result in him swinging at the staff. Further history unable to be obtained. Hospital Course: #Encephalopathy This is a 61 y/o M with a PMHx of?FLT3+ AML / Allogeneic stem cell transplant who was [facility] from [facility] for worsening lethargy and confusion in the setting of presumed pneumonia being treated with cefapime.?? On admission he was noted to be mute and minimally responsive. We discontinued the cefepime, and transitioned to zosyn in the interest of removal possible offending agents that could be contributing toencephalopathy. We also checked a tacrolimus level to assess for tacrolimus toxicity - which was notelevated. We ordered a MRI of the brain to r/o possible mass - although unlikely in the setting of no focal findings, and to evaluate for possible viral infection. TSH WNL. The next morning his mental status started to improve, first to one word responses, and eventually to short sentences. Given thisimprovement we suspected medications as the offending agent, but soon he returned to his prior mental status. At this point neurology was consulted as we requested an EEG to rule out stroke with post ictal mental status changes, as well as to discuss the need for LP. They agreed with EEG and LP. EEG was without findings consistent with seizure activity. His mental status again cleared, this time to full sentences, with return of working memory. Again no focal findings. We still thought it best to have LP performed was negative for HSV, VZV, cryptococcus, and enterococcus, but did show elevated protein (when corrected for the traumatic tap), normal glucose, and elevated lymphocyte count. Lymphoma/leukemia was negative at that time. It was discussed, and is possible that his PNA was contributing to a toxic metabolic encephalopathy, but the LP results more c/w a viralinfection. Given this we discussed with ID about the futility of further viral testing as we had sent testing for viral infections with a treatment. He was also s/p 1 week of therapy for CAP. They suspected that this was more c/w a traumatic tap, and for this reason we deescalated antibiotics and antivirals. He continued to clear at that time. On discharge we suspect a multifactorial etiology of his encephalopathy, from his STACIE, elevated tacrolimus level, cefepime, dehydration, and some element of delirium, but do not suspect current infectious process. #STACIE Pre-renal azotemia suspected 2/2 poor PO intake. Chronic difficulties with maintaining adequate PO intake due to lack of interest in food and drink. Supported with IV fluids several times this admission. Compounded by loose high volume ostomy output which ultimately improved with home loperamide. Cr at time of discharge was 1.3 up from a yanelis of 0.6 this admission. Arranged twice weekly appointmentsbeginning 01/15 and 01/17 for labs, electrolytes, and prn IVF. #Hospital acquired PNA vs aspiration pneumonitis In terms of PNA, agree with XR findings with R worse then L lung opacities. He was treated with antibiotics for a full week of therapy including cefepime, zoysn and then ceftriaxone. However, patient had no s/sx of pna at any point raising the concern for possible pneumonitis > pna. Ultimately, antibiotics were deescalated and the patient remained asymptomatic and HDS. ?? 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 Considered that this couldalso be contributing to his mental status changes but there was no evidence of leukemia in his 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 COORDINATOR from LP. Also considered that skin rash could also be 2/2 cefepime. Will continue outpatient steroid taper per Dr. Modi. ?? Vital Signs at Discharge: BP: 91/59, Heart Rate: 98, Temp: 36.7 ??C (98.1 ??F), Resp: 18, BMI (Calculated): 26.21 Height: 176 cm (5' 9.29) (01/06/22 2151) Weight: 78.9 kg (173 lb 15.1 oz) (01/13/22 0358) Functional and Cognitive Status: AOx4, walking, and with no cognitive deficits at this time. Important Studies and Lab Data: Labs: Last 3 wbc, hgb, hct plt Recent Labs 01/14/22 0320 01/13/22 0430 01/12/22 0450 WBC 5.4 6.3 8.8 HGB 7.8* 8.7* 8.8* HCT 22.6* 25.4* 24.5* PLATELET 53* 60* 60* Last 3 Lytes Recent Labs 01/14/22 0320 01/13/22 0430 01/12/22 0450 NA 134* 134* 134* K 5.0 4.5 4.7 CL 102 101 103 CO2 21* 20* 18* BUN 38* 33* 28* CREATININE 1.31 1.25 1.08 Last 3 LFTs Recent Labs 01/06/22 2320 12/23/21 1010 12/20/21 0935 12/17/21 0430 12/16/21 0240 AST 17 17 22 15 16 ALT 10 20 20 12 11 ALKPHOS 104 197* 178* 173* 197* BILITOT 0.6 0.6 0.5 0.3 0.3 BILIDIR 0.1 -- -- 0.1 0.1 Last Ca, Mg, Phos Recent Labs 01/14/22 0320 CALCIUM 8.3* PHOS 3.6 MAGNESIUM 0.77 Studies: Negative blood CX Tacrolimus levels 2.7 (01/06), 2.8 (01/09) LP: Glucose 67 Total protein 347 Nucleated cells -83, appears to be lymphocytes Lymphoma/Leukemia screen negative HSV - neg VSZ - neg Enterovirus - neg Cryptococcus - neg T protein high, normal glucose, + lymphocytes = viral infection ?? Pertinent radiology/diagnostic studies: MRI brain 01/07 IMPRESSION 1. ??No new intra-axial lesion or abnormal enhancement. 2. ??Has curvilinear site of blood products in the left frontal lobe potentially representing small area of hemorrhage or thrombosed developmental venous anomaly. Pending Studies and Lab Data: N/A Discharge Conditions/Prognosis: Stable, good if maintains PO intake Discharge to: Home Updated Allergies/ADRs: Allergies Allergen Reactions ??? Other [Unclassified Drug] Other (See Comments) Artificial Sweetners-lightheadedness, dizziness ??? Bactoshield Chg [Chlorhexidine Gluconate] Itching and Rash CHG wipes reported he gets a rash and is itchy. Immunizations Given this Hospitalization: Immunization History Administered Date(s) Administered ??? Pneumococcal Polyvalent 23 02/08/2004 ??? Td, adult 08/17/1998 Discharge Medications: Your Medications Continued medications with new dosing Dose Details tacrolimus 0.5 mg Cap Commonly known as: Prograf Take 2-3 capsules by mouth 2 times daily. Take 2 capsules (1mg) in the morning. Take 3 capsules (1.5mg) at night. What changed: ?? how much to take ?? additional instructions 1-1.5 mg Quantity: 60 capsule Refills: 3 Continued medications, unchanged Dose Details acyclovir 200 mg Cap Commonly known as: ZOVIRAX Take 4 capsules by mouth 2 times daily. 800 mg Quantity: 240 capsule Refills: 3 aspirin 81 mg Chew Take 81 mg by mouth daily. 81 mg Quantity: 30 tablet Refills: 3 flecainide 50 mg Tab Commonly known as: TAMBOCOR Take 1 tablet by mouth 2 times daily. 50 mg Quantity: 60 tablet Refills: 3 fluconazole 200 mg Tab Commonly known as: Diflucan Take 1 tablet by mouth daily. 200 mg Refills: 0 lidocaine-prilocaine Crea Commonly known as: EMLA Apply to mediport approximately 30 minutes prior to access. Quantity: 30 g Refills: 0 loperamide 2 mg Cap Commonly known as: Imodium A-D Take 1 capsule by mouth 3 times daily. 2 mg Quantity: 90 tablet Refills: 1 magnesium oxide 400 mg (241.3 mg magnesium) Tab Commonly known as: Mag-Ox Take 1 tablet by mouth 3 times daily. 400 mg Quantity: 90 tablet Refills: 3 metoprolol tartrate 25 mg Tab Commonly known as: Lopressor Take 1 tablet by mouth daily. 25 mg Quantity: 30 tablet Refills: 5 ondansetron 8 mg Tab Commonly known as: Zofran Take 1 tablet by mouth every 8 hours as needed for Nausea. 8 mg Quantity: 20 tablet Refills: 1 Ostomy Belt Medium Misc Dispense 1 Sensura Flako Belt #[id number] per month. Generic drug: Colostomy Belt Quantity: 1 each Refills: 11 * Ostomy Supplies Misc Dispense 2 boxes ( 10/box) of Adapt Barrier rings #[id number] per month. Quantity: 20 each Refills: 11 * Ostomy Supplies Powd Dispense 1 bottle of Adapt stoma powder #[id number] every other month. Quantity: 28.3 g Refills: 5 * Ostomy Supplies Misc Dispense 2 boxes (10/box) of Sensura Ossian Soft Convex One-piece Pouch #[id number] per month. Quantity: 20 each Refills: 11 * Ostomy Supplies Misc Dispense 2 boxes (20/box) of Brava Elastic Barrier strips #[id number] per month. Quantity: 40 each Refills: 11 * Ostomy Supplies [facility] Dispense 1 box (50/box) of a generic no-sting skin barrier wipe per month. Quantity: 50 each Refills: 11 pantoprazole EC 40 mg Tbec Commonly known as: Protonix Take 1 tablet by mouth daily. 40 mg Quantity: 90 tablet Refills: 3 predniSONE 10 mg Tab Commonly known as: Deltasone Take 3 tablets by mouth every morning. Take with food. 30 mg Quantity: 90 tablet Refills: 2 rosuvastatin 40 mg Tab Commonly known as: Crestor Take 1 tablet by mouth daily. 40 mg Quantity: 90 tablet Refills: 3 tamsulosin 0.4 mg Cap Commonly known as: Flomax Take 1 capsule by mouth daily. 0.4 mg Quantity: 90 tablet Refills: 0 vancomycin 125 mg Cap Commonly known as: Vancocin Take 1 capsule by mouth 2 times daily. 125 mg Quantity: 60 capsule Refills: 5 * This list has 5 medication(s) that are the same as other medications prescribed for you. Read thedirections carefully, and ask your doctor or other care provider to review them with you. STOPPED Medications clotrimazole 10 mg Troc Commonly known as: Mycelex dronabinoL 5 mg Cap Commonly known as: Marinol Smoking Status at Discharge: Social History Tobacco Use Smoking Status Never Smoker Smokeless Tobacco Never Used Instructions Given to Patient at Discharge: Patient Instructions You were admitted to the hospital with dehydration, kidney injury, elevated tacrolimus level, and altered mental status. We suspect that underlying cause of your confusion and altered mental status was dehydration leadingto kidney injury. Kindey injury can elevate tacrolimus levels and this further worsens kidney function and can cause confusion. Initially you improved with IV hydration, but then we suspect that your aspirated or had some food/drink go down the wrong pipe into the lungs leading to fevers and concern for pneumonia. Because of the worry for pneumonia, you were started on an antibiotic called Cefepime. After starting on Cefepime you became more confused and sleepy again. This antibiotic is commonly associated with confusion and sleepiness just like what happened to you. After you were transferred to [facility] we looked for more serious and dangerous causes of confusion such as: 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 COORDINATOR infection (meningitis/encephalitis), seizures, brain tumor, brain bleeding. Both our Neurology and Infectious Disease teams saw you during your stay. Fortunately, after performing a CT head, MRI brain, EEG, and lumbar puncture we did not find any of these other causes of confusion. Over time your confusion improved, especially after we stopped the cefepime and switched you to different antibiotics. You have been doing well without any antibiotics for the last 3 days and at this point we do not suspect any remaining infection. We continued to support you with electrolytes and fluids through your IV this admission. It is extremely important for you to continue drinking plenty of fluids. Think of water like medicine. Please try to take in at least 2000mL (~8 glasses) of water or other fluids every day. This will keep you wellhydrated, protect your kidneys, and help to minimize fluctuation in the level of your tacrolimus. I recommend keeping a record of your fluid intake every day. For now, we have set you up with twice weekly appointments at [facility] to check your electrolytes and receive IV fluids beginning tomorrow. We are increasing your tacrolimus level in order to get back into the therapeutic range, so it is especially important for you to maintain good oral intake of fluids and nutritious food. Your blood counts are made up of white blood cells, which fight infection, red blood cells that carry oxygen, and platelets, which stop bleeding. Generally, blood counts fall between 7-14 days after chemotherapy. During the time your blood counts are at their lowest point (yanelis), you are at risk for infection and bleeding. Use good hand washing and avoid crowds and people with colds or infections. Call right away if you have any of the following symptoms: ??? Temperature greater than 100.4 F (oral) Check your temperature twice a day at home---if you havea fever of 100.4F you should proceed to the ER immediately! ??? Shaking chills, with or without a fever ??? Signs of infection (e.g. burning with urination, yellow or green sputum, redness, swelling, drainage of a wound or at the site of your central venous access device (Mediport, Feliciano) or mouth sores. ??? Any unusual bleeding or bruising, or red spots on your skin (petechiae) ??? Black tarry stools or red or dark brown urine ??? Bloody or coffee ground colored emesis (vomit) ??? Prolonged bleeding from cuts ??? Unusual or new back or stomach pain ??? Shortness of breath ??? Dizziness/Lightheadedness ??? Worsening fatigue ? ? Diarrhea for >24 hours ? ? Constipation for >48 hours ? ? Vomiting for >24 hours or uncontrolled nausea. Changes in Your Medications: New Medications: - None Medication dose changes: - Tacrolimus: please take 1mg in the morning and 1.5mg at night; we will check your tacrolimus levelagain on Thursday and continue to adjust the dose as needed. Activity level: Try to increase the amount of activity you do every day. The best way to prevent fatigue is to continue exercising. Work: Wash your hands frequently and stay away from sick individuals.Pace yourself and rest when youare fatigued. Driving: Do not drive if you are feeling fatigued. Diet: Regular, healthy diet Follow-Up Appointments: Future Appointments Date Time Provider Department Center 01/15/2022 8:30 AM [facility], ROOM [facility] [place] [facility] 01/17/2022 8:30 AM [facility], ROOM [facility] [place] [facility] 01/28/2022 2:15 PM Kai Palmer MD [facility] OPHT 4B [facility] 02/26/2022 9:30 AM Kostas Bustamante MD [facility] NEURO [facility] Dr. Modi plans to see you in clinic in 1-2 weeks. His team will call you later this week to arrange this. If you have any questions or concerns, call Dr. Modi's office ([phone]). During non-business hours, call [phone] and ask to speak to the Hematology Fellow On-Call. General Instructions None Future Appointments and Orders Future Appointments and Orders Future Appointments Provider Department Dept Phone 01/15/2022 8:30 AM [facility], ROOM Hematology Oncology at [facility] Arrive at: [facility] door at end of hallway [phone] 01/17/2022 8:30 AM [facility], ROOM Hematology Oncology at [facility] Arrive at: [facility] door at end of hallway [phone] 01/20/2022 11:45 AM ACCESS ROOM Hematology and Oncology at [facility] Arrive at: [place] [place] [facility] [phone] 01/20/2022 12:45 PM Parviz Modi MD Hematology and Oncology at [facility] Arrive at: [place] [facility] 3K [phone] 01/28/2022 2:15 PM Negin Heaton, BETTY; Kai Palmer MD; DILATION AND TEST, SK; VISUALFIELD; TECH, SK Ophthalmology at [facility] Arrive at: [place] [facility] 4B [phone] 02/26/2022 9:30 AM Kostas Bustamante MD Neurology at [facility] Arrive at: [place] [facility] 3C [phone] Discharge References/Attachments None documented in this encounter Discharge Instructions Patient InstructionsHortensia Tenorio MD - 01/11/2022 4:18 PM EDT You were admitted to the hospital with dehydration, kidney injury, elevated tacrolimus level, and altered mental status. We suspect that underlying cause of your confusion and altered mental status was dehydration leadingto kidney injury. Kindey injury can elevate tacrolimus levels and this further worsens kidney function and can cause confusion. Initially you improved with IV hydration, but then we suspect that your aspirated or had some food/drink go down the wrong pipe into the lungs leading to fevers and concern for pneumonia. Because of the worry for pneumonia, you were started on an antibiotic called Cefepime. After starting on Cefepime you became more confused and sleepy again. This antibiotic is commonly associated with confusion and sleepiness just like what happened to you. After you were transferred to [facility] we looked for more serious and dangerous causes of confusion such as: 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 COORDINATOR infection (meningitis/encephalitis), seizures, brain tumor, brain bleeding. Both our Neurology and Infectious Disease teams saw you during your stay. Fortunately, after performing a CT head, MRI brain, EEG, and lumbar puncture we did not find any of these other causes of confusion. Over time your confusion improved, especially after we stopped the cefepime and switched you to different antibiotics. You have been doing well without any antibiotics for the last 3 days and at this point we do not suspect any remaining infection. We continued to support you with electrolytes and fluids through your IV this admission. It is extremely important for you to continue drinking plenty of fluids. Think of water like medicine. Please try to take in at least 2000mL (~8 glasses) of water or other fluids every day. This will keep you wellhydrated, protect your kidneys, and help to minimize fluctuation in the level of your tacrolimus. I recommend keeping a record of your fluid intake every day. For now, we have set you up with twice weekly appointments at [facility] to check your electrolytes and receive IV fluids beginning tomorrow. We are increasing your tacrolimus level in order to get back into the therapeutic range, so it is especially important for you to maintain good oral intake of fluids and nutritious food. Your blood counts are made up of white blood cells, which fight infection, red blood cells that carry oxygen, and platelets, which stop bleeding. Generally, blood counts fall between 7-14 days after chemotherapy. During the time your blood counts are at their lowest point (yanelis), you are at risk for infection and bleeding. Use good hand washing and avoid crowds and people with colds or infections. Call right away if you have any of the following symptoms: Temperature greater than 100.4 F (oral) Check your temperature twice a day at home---if you have a fever of 100.4F you should proceed to the ER immediately! Shaking chills, with or without a fever Signs of infection (e.g. burning with urination, yellow or green sputum, redness, swelling, drainageof a wound or at the site of your central venous access device (Mediport, Feliciano) or mouth sores. Any unusual bleeding or bruising, or red spots on your skin (petechiae) Black tarry stools or red or dark brown urine Bloody or coffee ground colored emesis (vomit) Prolonged bleeding from cuts Unusual or new back or stomach pain Shortness of breath Dizziness/Lightheadedness Worsening fatigue Diarrhea for >24 hours Constipation for >48 hours Vomiting for >24 hours or uncontrolled nausea. Changes in Your Medications: New Medications: - None Medication dose changes: - Tacrolimus: please take 1mg in the morning and 1.5mg at night; we will check your tacrolimus levelagain on Thursday and continue to adjust the dose as needed. Activity level: Try to increase the amount of activity you do every day. The best way to prevent fatigue is to continue exercising. Work: Wash your hands frequently and stay away from sick individuals.Pace yourself and rest when youare fatigued. Driving: Do not drive if you are feeling fatigued. Diet: Regular, healthy diet Follow-Up Appointments: Future Appointments Date Time Provider Department Center 01/15/2022 8:30 AM [facility], ROOM [facility] [place] [facility] 01/17/2022 8:30 AM [facility], ROOM [facility] [place] [facility] 01/28/2022 2:15 PM Kai Palmer MD [facility] OPHT 4B [facility] 02/26/2022 9:30 AM Kostas Bustamante MD [facility] NEURO [facility] Dr. Modi plans to see you in clinic in 1-2 weeks. His team will call you later this week to arrange this. If you have any questions or concerns, call Dr. Modi's office ([phone]). During non-business hours, call [phone] and ask to speak to the Hematology Fellow On-Call. documented in this encounter Medications at Time of Discharge [...] with food. Colostomy Belt Dispense 1 Sensura Ossian 1 each 11 2 (Ostomy Belt Medium) Belt #4233 per month. [facility] metoprolol tartrate Take 1 tablet by mouth [...] 30 minutes prior to access. Ostomy Supplies [facility] Dispense 2 boxes ( 20 each 11 022 10/box) of Adapt Barrier rings #[id number] per month. Ostomy Supplies Dispense 1 bottle of 28.3 g 5 08/20/2021 Powder Adapt stoma powder #[id number] every other month. Ostomy Supplies Misc Dispense 2 boxes 20 each 11 2 (10/box) of Sensura Ossian Soft Convex One-piece Pouch #[id number] per month. Ostomy Supplies Misc Dispense 2 boxes 40 each 11 2 (20/box) of Brava Elastic Barrier strips #[id number] per month. Ostomy Supplies [facility] Dispense 1 box 50 each [...] 81 mg by mouth 30 tablet 3 11/152 02/03/2022 Chewable daily. documented as of this encounter Progress Notes Caridad Mcdonald RN - 01/14/2022 2:13 PM EDT Patient discharged home today. A&Ox4. BP 91/56. Asymptomatic. MD notified- no further interventions. 1L LR bolus administered. Ostomy nurse at bedside to change appliance and provide education to patient and SO. AVS reviewed with patient and SO- denies questions or concerns. Left with all belongings to [facility] in wheelchair. 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 Is planned for discharged however he developed leakage around the ostomy bag that was addressed today by the ostomy nurse. Encouraged patient to maintain better PO fluid intake. He has infusion suit appointments for IV hydration twice a week. 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 Pt very discouraged as dressing changes are very painful now. Najma-stomal skin very tender/red/raw. Pt grimaces/jumps with light touch to the area. Ostomy appliance was leaking at sta rt of shift. Pt pre-medicated with 0.3mg of IV dilaudid. Pt states that anything on his skin causes it to burn. Paste and stoma powder applied; failed 2 hours later. 2nd attempt pt was pre-medicated with 0.4 mg of dilaudid. Skin prep was used. Pt was screaming/crying out in pain. Current appliance is leaking near naval and on the R side; mepilex placed surrounding ostomy until ostomy nurse arrives this AM. Leftover paste present but pt could not tolerate scraping this off or cleaning deep in navel where stool had pooled. Pt stated he felt like he needed to move his bowels. Pt walked to bathroom andpassed a moderate amount of light pink/tinged mucous discharge. 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 Unable to keep ostomy appliance adhered toskin - multiple attempts with different supplies, second RN at bedside to attempt as well, MD aware - awaiting Ostomy consult. Skin under ostomy appliance red and tender, burning described by patient. Stool output loose/liquid, refused metamucil, PRN imodium refused. LR bolus given over 4 hours, encouraged to eat and drink. Refused to get out of bed, concerned about ostomy leaking everywhere. Magnesium replenished, Tacro level drawn and sent to lab. Chemo plan & supportive medication: Tacro Baseline Weight: 90.3 kg (12/20) AM weight: 79.1 kg Neuro: WDL Neuro Checks: CV: .WDL except, rhythm Telemetry: No Neurovasc: .WDL except, neurovascular assessment lower N/T in feet VTE Prophylaxis: anticoagulant therapy Lovenox Pulmonary: WDL Dim O2 Device: None (Room air) GI: .WDL except, appearance/characteristics, GI symptoms, stool LBM: 01/13/22 Ostomy Fingerstick order: No : .WDL except, voiding ability/characteristics external cath Last Cha Care done: absorbent pad changed (01/13/22 1003) Musculoskeletal: .WDL except, mobility Pain/Location: 0 (01/13/22 1609) / other (see comments) (denies) (01/08/22 0600) Mobility Plan: SBA with FWW Bed alarm sensitivity: High Skin: .WDL except, all GVHD rash BUE, trunk, chest- Sarna lotion available Psych/Social: Supportive GF, Chrissy Action List Ostomy Consult - Please page Thursday AM (#[id number]) Replace electrolytes as needed Encourage ambulation and PO intake Tacro level on Thursday/ Discharge Plan: Home meds in Rx [] Belongings in safe [] Consults: PT [x] OT [] ELECTROLYSIST [] Last Flu vaccine: Last Covid Test Result: 01/09/2022 Not Detected Situational Awareness & Contingency Planning Coloplast convex high output pouch #[id number] w/ adapt ring and barrier strip Miguel Angel Archer MD - 01/13/2022 7:15 AM EDT Inpatient Hematology/Oncology/SCT Progress Note Patient info: Name: Herber Ievrson Jr. : 1960 PCP: LEISA Munguia PCP phone number: [phone] Date of Admission: 01/06/2022 ( Hospital Day 7 days ) Service: Hem/Onc Team A pg [id number] (09/03) Responsible Attending: Dr. 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 ?? 24 Hour Events/subjective: -Discharge delayed due to tachycardia and concern for high ostomy output with leakage. - denies SOB, chest pain, abdominal pain, nausea, vomiting - no fever, chills Vitals: Last value Range last 24 hrs Temperature Temp: 36.6 ??C (97.9 ??F) Temp: [36.6 ??C (97.9 ??F)-37 ??C (98.6 ??F)] Heart Rate Heart Rate: 100 Heart Rate: [98-110] Blood Pressure BP: 114/77 BP: (114-123)/(76-79) Respiratory Rate Resp: 16 Resp: [16-23] SpO2 SpO2: 100 % SpO2: [98 %-100 %] Intake/Output Summary (Last 24 hours) at 01/13/2022 0715 Last data filed at 01/13/2022 0609 Gross per 24 hour Intake 1700 ml Output 1800 ml Net -100 ml Patient Vitals for the past 168 hrs: Weight 01/13/22 0358 78.9 kg (173 lb 15.1 oz) 01/12/22 0320 79.6 kg (175 lb 7.8 oz) 01/11/22 0551 80.9 kg (178 lb 5.6 oz) 01/10/22 0500 80.9 kg (178 lb 5.6 oz) 01/09/22 0419 82.4 kg (181 lb 9.6 oz) 01/08/22 0500 80.7 kg (178 lb) 01/07/22 0335 80.1 kg (176 lb 9.4 oz) 01/06/22 2151 81.2 kg (179 lb 0.2 oz) Admit wt: 81.2 kg -Last BM: Last Bowel Movement: 01/13/22 Physical Exam: Gen: following commands, Aox3, speaking in full sentences HEENT: PERRLA, EOMI by tracking, no icterus, MMM, poor oral dentitionon, dry mouth CV: Tachycardic rate, regular rhythm, no murmurs/rubs/gallops, rash flat diffuse over chest Pulm: Normal respiratory effort, CTA with good air entery bilaterally, no crackles. Abd: Soft, non-tender, non-distended. No guarding or rebound. Ostomy in place, stool well formed Ext: No pedal edema. No gross abnormalities. Neuro: Speech: repetition intact, creating own sentences, naming intact, simple math intact, following 2 step commands Strength: 4/5 diffusely UE/LE Reflexes: normal achilles, and decreased patellar, BR normal Attention: days of week backwards intact Labs: Recent Labs 01/13/2242901/12/220 01/11/22 0345 WBC 6.3 8.8 7.5 HGB 8.7* 8.8* 8.4* HCT 25.4* 24.5* 24.5* PLATELET 60* 60* 49* NEUTROABS 5.07 7.37* 5.70 Recent Labs 01/13/2242901/12/22 0450 01/11/22 0345 NA 134* 134* 136 K 4.5 4.7 4.3 CL 101 103 104 CO2 20* 18* 20* BUN 33* 28* 22* CREATININE 1.25 1.08 0.95 Recent Labs 01/13/220 01/12/22 0450 01/11/22 0345 CALCIUM 8.7 8.8 8.7 MAGNESIUM 0.66* 0.78 0.88 PHOS 3.3 2.0* 2.4* Tacro lvl 2.7 (01/06) --> 2.8 (01/09) Microbiology: Blood Culture: x2 negative Urine Culture: no nitrites, minimal WBCs LP: Glucose 67 Total protein 347 Nucleated cells -83, appears to be lymphocytes Lymphoma/Leukemia screen negative HSV - neg VSZ - neg Enterovirus - neg Cryptococcus - neg T protein high, normal glucose, + lymphocytes = viral infection Assessment: This is a 61 y/o M with a PMHx of 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 Encephalopathy has now resolved. Etiology not completely clear. However, most likely is drug-inducedvs toxic metabolic encephalopathy. MRI brain and EEG did not reveal a cause. LP showed high protein,normal glucose, + lymphocytic predominance, no leukemia or lymphoma. Tthis was a traumatic tap unfortunately, and while neurology felt it could still represent a viral meningoencephalopathy, ID felt that the high protein was most likely artifact. At the advice of ID the patient has been off antibiotics (CTX, ampicillin, vanc, and IV acyclovir) since 01/09. Mental status has remained clear and at baseline off antibiotics. Suspect his fluid status is his most important at this time, greatest losses are from his ostomy, will try and keep him neutral by encouraging PO intake and adding some stool bulking agents. He has proven to be at high risk for dehydration, STACIE, and subsequent tacrolimus toxicity having now been admitted two times in the last month for similar constellations of symptoms. I suspect he will need daily weights at home, with a goal of net even, and likely a higher daily goal closer to 3L for fluid givenhis ostomy output. He was having some problems with ostomy leak that has improved with loperamide however persistent net negative with up trending creatinine un reassuring. Will strive for net positivetoday and encourage PO intake. We have restarted his home ASA, statin, flecaninde, and metoprolol. No evidence of pAib since arrival. Lytes have not been optimal, working to replete. Plan: #High Volume Ostomy Output -loperamide 2mg prn -1L LR/3 hrs this AM #AMS - encephalopathy vs. 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 - continue with steroids for GVHD > methylpred 24mg qdaily --> prednisone 30mg qd starting 01/12 - tacro 1mg bid - acyclovir 800mg bid #Mild malnutrition #Hypomagnesemia #Hypophosphatemia - Phos replacement prn - Mg Ox 400 BID + IV prn - tolerating a regular diet #pAF - flecaninde 50mg bid - continue home metoprolol 12.5mg bid (25 succ on discharge) - EKG as above -No anticoagulation #Hx of stroke - ASA - Statin FEN/PPX: -DVT ppx: Lovenox 40mg -Diet:Regular diet -CODE STATUS: Attempt Cardiopulmonary Resuscitation - Inpatient -Dispo: stable for d/c home tomorrow if lytes are stable and patient maintains PO intake today Zak Penaloza MD Internal Medicine PGY 1 Heme/Onc/BMT Pager #[phone] ++++++++++++++++++++++++++++++++++++++++++++++++++ Attending Addendum: I agree with the history, physical, assessment and plan of the house staff. I have seen and examinedthe patient on rounds and I have discussed the management with the team. I have reviewed all pertinent laboratory and radiographic findings. This patient meets criteria for inpatient level of care due to the above medical complexity. 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 Is planned for discharged however he developed leakage around the ostomy bag that need the ostomy nurse. Encouraged patient to maintain better PO fluid intake. 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 Applied flat appliance with ring and positioned pt on his side to facilitate draining at 0430. Skin very tender, remained slippery despite cleaning and drying. Leftover paste present but pt could not tolerate scraping this off or cleaning deep in navel where stool had pooled. Current appliance attached to drainage bag. Chemo plan & supportive medication: Tacro Baseline Weight: 90.3 kg (12/20) AM weight: 78.9 kg Action List Needs to see social work before D/C tomorrow is possible? 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 Pt intermittently tachy to 100's. IVF bolus given with goodeffect on HR. Pt had poor PO intake during the day. Pt's ostomy continues to leak watery stool through each ostomy appliance nursing and S/O place. Skin around stoma is raw/painful and irritated. Barrier cream placed with guaze and an ostomy bag placed over mepilex to prevent more skin breakdown. Imodium started per pts home regimen. Pt withdrawn and rightfully frustrated with delay in D/C Awaiting ostomy nurse input on Thursday. Pt rested in bed with SO at bedside for remainder of the day. Action List Needs to see social work before D/C tomorrow is possible? Replace electrolytes as needed Encourage ambulation and PO intake Monitor for s/s of infection Tacro Trough Thursday/ Encourage PO intake Situational Awareness & Contingency Planning Coloplast convex high output pouch #[id number] w/ adapt ring and barrier strip Partner Chrissy Parviz Modi MD - 01/12/2022 6:57 AM EDT Images from the original note were not included. Inpatient Hematology/Oncology/SCT Progress Note Patient info: Name: Herber Iverson Jr. : 1960 PCP: LEISA Munguia PCP phone number: [phone] Date of Admission: 01/06/2022 ( Hospital Day 6 days ) Service: Hem/Onc Team A pg [id number] (09/03) Responsible Attending: Dr. 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 ?? 24 Hour Events/subjective: - Stable mental status - worked with PT, cleared for home with supervision when medically ready - 399 on repeat EKG this morning - restarted home flecainide This AM - denies SOB, chest pain, abdominal pain - no F/C/N/V Vitals: Last value Range last 24 hrs Temperature Temp: 36.4 ??C (97.5 ??F) Temp: [36.4 ??C (97.5 ??F)-36.8 ??C (98.2 ??F)] Heart Rate Heart Rate: (!) 115 Heart Rate: [94-115] Blood Pressure BP: 140/82 BP: (120-140)/(82-85) Respiratory Rate Resp: 20 Resp: [18-20] SpO2 SpO2: 99 % SpO2: [97 %-99 %] Intake/Output Summary (Last 24 hours) at 01/12/2022 0657 Last data filed at 01/12/2022 0300 Gross per 24 hour Intake 320 ml Output 1725 ml Net -1405 ml Patient Vitals for the past 168 hrs: Weight 01/12/22 0320 79.6 kg (175 lb 7.8 oz) 01/11/22 0551 80.9 kg (178 lb 5.6 oz) 01/10/22 0500 80.9 kg (178 lb 5.6 oz) 01/09/22 0419 82.4 kg (181 lb 9.6 oz) 01/08/22 0500 80.7 kg (178 lb) 01/07/22 0335 80.1 kg (176 lb 9.4 oz) 01/06/22 2151 81.2 kg (179 lb 0.2 oz) Admit wt: 81.2 kg -Last BM: Last Bowel Movement: 01/12/22 Physical Exam: Gen: following commands, Aox3, speaking in full sentences HEENT: PERRLA, EOMI by tracking, no icterus, MMM, poor oral dentitionon, dry mouth, plaques in mouthimproving CV: Tachycardic rate, regular rhythm, no murmurs/rubs/gallops, rash flat diffuse over chest Pulm: Normal respiratory effort, CTA with good air entery bilaterally, no crackles. Abd: Soft, non-tender, non-distended. No guarding or rebound. Ostomy in place, dark stool watery Ext: No pedal edema. No gross abnormalities. Neuro: Speech: repetition intact, creating own sentences, naming intact, simple math intact, following 2 step commands Strength: 4/5 diffusely UE/LE Reflexes: normal achilles, and decreased patellar, BR normal Attention: days of week backwards intact Medications: Scheduled Meds: ??? predniSONE 30 mg Oral Daily ??? camphor-menthoL Topical (Top) TID ??? rosuvastatin 10 mg Oral QPM ??? metoprolol tartrate 12.5 mg Oral 2 times per day ??? Magnesium Oxide-Mg AA Chelate 532 mg Oral TID ??? aspirin 81 mg Oral Daily ??? tacrolimus 1 mg Oral Daily ??? flecainide 50 mg Oral 2 times per day ??? tacrolimus 1 mg Oral Nightly ??? pantoprazole EC 40 mg Oral Daily ??? tamsulosin 0.4 mg Oral Daily ??? acyclovir 800 mg Oral BID ??? fluconazole 400 mg Oral Nightly ??? nystatin 500,000 Units Oral 4 Times Daily ??? sodium chloride 0.9 % (flush) 5 mL Intravenous BID ??? enoxaparin 40 mg Subcutaneous Nightly Continuous Infusions: PRN Meds:.heparin, porcine, calcium carbonate, sodium chloride 0.9 % (flush), lidocaine Labs: Recent Labs 01/12/22 0450 01/11/2234401/10/22 0100 WBC 8.8 7.5 5.7 HGB 8.8* 8.4* 7.4* HCT 24.5* 24.5* 21.2* PLATELET 60* 49* 43* NEUTROABS 7.37* 5.70 4.75 Recent Labs 01/12/2244901/11/2234401/10/22 1613 NA 134* 136 132* K 4.7 4.3 4.2 CL 103 104 101 CO2 18* 20* 16* BUN 28* 22* 22* CREATININE 1.08 0.95 1.01 Recent Labs 01/12/22 0450 01/11/2234401/10/22 1613 CALCIUM 8.8 8.7 8.4* MAGNESIUM 0.78 0.88 1.05 PHOS 2.0* 2.4* 2.1* Recent Labs 01/06/22 2320 AST 17 ALT 10 ALKPHOS 104 BILITOT 0.6 BILIDIR 0.1 Tacro lvl 2.7 (01/06) --> 2.8 (01/09) Microbiology: Blood Culture: x2 negative Urine Culture: no nitrites, minimal WBCs LP: Glucose 67 Total protein 347 Nucleated cells -83, appears to be lymphocytes Lymphoma/Leukemia screen negative HSV - neg VSZ - neg Enterovirus - neg Cryptococcus - neg T protein high, normal glucose, + lymphocytes = viral infection Pertinent radiology/diagnostic studies: MRI brain 01/07 IMPRESSION 1. No new intra-axial lesion or abnormal enhancement. 2. 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 Encephalopathy has now resolved. Etiology not completely clear. However, most likely is drug-inducedvs toxic metabolic encephalopathy. MRI brain and EEG did not reveal a cause. LP showed high protein,normal glucose, + lymphocytic predominance, no leukemia or lymphoma. Tthis was a traumatic tap unfortunately, and while neurology felt it could still represent a viral meningoencephalopathy, ID felt that the high protein was most likely artifact. At the advice of ID the patient has been off antibiotics (CTX, ampicillin, vanc, and IV acyclovir) since 01/09. Mental status has remained clear and at baseline off antibiotics. Suspect his fluid status is his most important at this time, greatest losses are from his ostomy, will try and keep him neutral by encouraging PO intake and adding some stool bulking agents. He has proven to be at high risk for dehydration, STACIE, and subsequent tacrolimus toxicity having now been admitted two times in the last month for similar constellations of symptoms. I suspect he will need daily weights at home, with a goal of net even, and likely a higher daily goal closer to 3L for fluid givenhis ostomy output. We have restarted his home ASA, statin, flecaninde, and metoprolol. No evidence of pAib since arrival. Lytes have not been optimal, working to replete. He was having some problems with ostomy leak ON, if we can sort that out today will plan for d/c. Plan: - flecanide to re-start this morning - optimize lytes - encourage PO intake - continue tacro 1mg bid - change from IV methypred to PO prednisone starting tomorrow (already received today's dose) - Sarna for rash - dispo planning, tentatively tomorrow #AMS - encephalopathy vs. Delerium, resolved DDX: Tacro tox, seizure, toxic metabolic encephalopathy, cefepime reaction - s/p cefepime - s/p zosyn - s/p ceftriaxone, ampicillin, and vancomycin - s/p 10mg/kg acyclovir Q8H - UA - not c/w infection - TSH 1.37 - CT head - no acute process - MRI as above, no acute process - LP as above, traumatic tap, ID not convinced this represents infection - appreciate neurology and ID recs - doing well off all antibiotics x72 hours #Fever?? 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 - continue with steroids for GVHD > methylpred 24mg qdaily --> prednisone 30mg qd starting 01/12 - tacro 1mg bid - acyclovir 800mg bid #Mild malnutrition #Hypomagnesemia #Hypophosphatemia - Phos replacement prn - Mg Ox 400 BID + IV prn - tolerating a regular diet #Hypokalemia, resolved - s/p IV & PO K - BMP qd #pAF - flecaninde 50mg bid - continue home metoprolol 12.5mg bid (25 succ on discharge) - EKG as above #Hx of stroke - ASA - Statin FEN/PPX: -DVT ppx: Lovenox 40mg -Diet:Regular diet -CODE STATUS: Attempt Cardiopulmonary Resuscitation - Inpatient -Dispo: stable for d/c home tomorrow if lytes are stable and patient maintains PO intake today Sundar Ludwig MD Internal Medicine PGY 1 Heme/Onc/BMT Pager #[phone] HEMATOLOGY/BMT STAFF PROGRESS NOTE I interviewed, examined and reviewed data on Herber Iverson Jr. today. I agree with Dr. Ludwig's findings, assessment and plans as listed in his note. Overall Herber is doing much better but because we have been unable to achieve an acceptable seal for his colostomy he has been leaking stool putting him at risk for skin breakdown and infection. He would not be able to adequately handle this situation at home so he will stay as we work to find a workable plan for his colostomy. We will consult the colostomy nurse who has been working with him here at . I reviewed Herber's situation and our plans for todaywith him and Chrissy during this visit. This patient meets criteria for inpatient level of care based on the above medical complexity. 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 Pt OOB completing x2 laps around unit, with SOB resolved by sitting down intermittently during walk. Ostomy leaking/ coming off multiple times during shift. Pt cleaned and appliance reapplied. Sarna lotion ordered for rash and increased itching on back. Plan for pt to be d/c'd tomorrow home. 01/10AM: Pt is A/Ox4, VSS ex BP elevated during the AM to 130-150/90-100 and Pt tachy to 100's. Pt asymptomatic, EKG ordered to evaluate QTC prior to starting cardiac medications. QTC 486, MD aware and Flecainide on hold until tomorrow. Pentamidine ordered for PJP ppx, per MD ok to give even with QTC prolonged. Port dressing changed and pt re accessed. prime broker at bedside for appliance change. Pt showered with significant other, tolerated well. IVF bolus given with good effect on HR. Mag replaced x2IV and PO mag added TID. Phos added TID, tolerating well. Pt had poor PO intake during the day, nutrition at bedside to help pt with meal choices. Pt worked with pt, OOB with SBA and FWW to ambulate around unit x3. Pt reported no SOB during ambulation, though very fatigued when returned to bed. Pt rested in bed with SO at bedside for remainder of the day. 01/10 PM No complaints overnight. Ostomy bag changed x4, continued to leak all night despite skin prep and stoma paste. Sleeping all night. Chemo plan & supportive medication: Tacro Baseline Weight: 90.3 kg (12/20) AM weight: 82.4kg Parviz Modi MD - 01/11/2022 7:37 AM EDT Images from the original note were not included. Inpatient Hematology/Oncology/SCT Progress Note Patient info: Name: Herber Iverson Jr. : 1960 PCP: LEISA Munguia PCP phone number: [phone] Date of Admission: 01/06/2022 ( Hospital Day 5 days ) Service: Hem/Onc Team A pg [id number] (09/03) Responsible Attending: Dr. 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 ?? 24 Hour Events/subjective: - Stable mental status, approximately at baseline per patient and SO - worked with PT, cleared for home with supervision when medically ready - received pentamidine and restarted home metoprolol yesteday - QTC 489 yesterday, 399 on repeat EKG this morning This AM - denies SOB, chest pain, abdominal pain - skin is somewhat dry and more itchy today - bothered by leaking of his ostomy overnight, understandably disruptive Vitals: Last value Range last 24 hrs Temperature Temp: 36.6 ??C (97.9 ??F) Temp: [36.4 ??C (97.5 ??F)-36.7 ??C (98.1 ??F)] Heart Rate Heart Rate: (!) 107 Heart Rate: [107] Blood Pressure BP: 142/84 BP: (118-152)/(83-102) Respiratory Rate Resp: 20 Resp: [18-20] SpO2 SpO2: 98 % SpO2: [97 %-99 %] Intake/Output Summary (Last 24 hours) at 01/11/2022 0737 Last data filed at 01/11/2022 0400 Gross per 24 hour Intake 0 ml Output 2785 ml Net -2785 ml Patient Vitals for the past 168 hrs: Weight 01/11/22 0551 80.9 kg (178 lb 5.6 oz) 01/10/22 0500 80.9 kg (178 lb 5.6 oz) 01/09/22 0419 82.4 kg (181 lb 9.6 oz) 01/08/22 0500 80.7 kg (178 lb) 01/07/22 0335 80.1 kg (176 lb 9.4 oz) 01/06/22 2151 81.2 kg (179 lb 0.2 oz) Admit wt: 81.2 kg -Last BM: Last Bowel Movement: 01/11/22 Physical Exam: Gen: following commands, Aox3, speaking in full sentences HEENT: PERRLA, EOMI by tracking, no icterus, MMM, poor oral dentitionon, dry mouth, plaques in mouthimproving CV: Tachycardic rate, regular rhythm, no murmurs/rubs/gallops, rash flat diffuse over chest Pulm: Normal respiratory effort, CTA with good air entery bilaterally, no crackles. Abd: Soft, non-tender, non-distended. No guarding or rebound. Ostomy in place, dark stool watery Ext: No pedal edema. No gross abnormalities. Neuro: Speech: repetition intact, creating own sentences, naming intact, simple math intact, following 2 step commands Strength: 4/5 diffusely UE/LE Reflexes: normal achilles, and decreased patellar, BR normal Attention: days of week backwards intact Medications: Scheduled Meds: ??? rosuvastatin 10 mg Oral QPM ??? metoprolol tartrate 12.5 mg Oral 2 times per day ??? Magnesium Oxide-Mg AA Chelate 532 mg Oral TID ??? aspirin 81 mg Oral Daily ??? tacrolimus 1 mg Oral Daily ??? flecainide 50 mg Oral 2 times per day ??? tacrolimus 1 mg Oral Nightly ??? pantoprazole EC 40 mg Oral Daily ??? tamsulosin 0.4 mg Oral Daily ??? acyclovir 800 mg Oral BID ??? fluconazole 400 mg Oral Nightly ??? nystatin 500,000 Units Oral 4 Times Daily ??? sodium chloride 0.9 % (flush) 5 mL Intravenous BID ??? enoxaparin 40 mg Subcutaneous Nightly ??? methylPREDNISolone sodium succinate 24 mg Intravenous Daily Continuous Infusions: PRN Meds:.heparin, porcine, calcium carbonate, sodium chloride 0.9 % (flush), lidocaine Labs: Recent Labs 01/11/22 0345 01/10/22 0100 01/09/22 0025 WBC 7.5 5.7 8.5 HGB 8.4* 7.4* 7.7* HCT 24.5* 21.2* 22.8* PLATELET 49* 43* 59* NEUTROABS 5.70 4.75 7.65* Recent Labs 01/11/22 03401/10/22 1613 01/10/22 0100 NA 136 132* 136 K 4.3 4.2 3.9 CL 104 101 105 CO2 20* 16* 20* BUN 22* 22* 22* CREATININE 0.95 1.01 0.89 Recent Labs 01/11/22 0345 01/10/22 1613 01/10/22 0100 CALCIUM 8.7 8.4* 8.1* MAGNESIUM 0.88 1.05 0.56* PHOS 2.4* 2.1* 1.8* Recent Labs 01/06/22 2320 AST 17 ALT 10 ALKPHOS 104 BILITOT 0.6 BILIDIR 0.1 Tacro lvl 2.7 (01/06) --> 2.8 (01/09) Microbiology: Blood Culture: x2 negative Urine Culture: no nitrites, minimal WBCs LP: Glucose 67 Total protein 347 Nucleated cells -83, appears to be lymphocytes Lymphoma/Leukemia screen negative HSV - neg VSZ - neg Enterovirus - neg Cryptococcus - neg T protein high, normal glucose, + lymphocytes = viral infection Pertinent radiology/diagnostic studies: MRI brain 01/07 IMPRESSION 1. No new intra-axial lesion or abnormal enhancement. 2. 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 Encephalopathy has now resolved. Etiology not completely clear. However, most likely is drug-inducedvs toxic metabolic encephalopathy. MRI brain and EEG did not reveal a cause. LP showed high protein,normal glucose, + lymphocytic predominance, no leukemia or lymphoma. Tthis was a traumatic tap unfortunately, and while neurology felt it could still represent a viral meningoencephalopathy, ID felt that the high protein was most likely artifact. At the advice of ID the patient has been off antibiotics (CTX, ampicillin, vanc, and IV acyclovir) since 01/09. Mental status has remained clear and at baseline off antibiotics. Suspect his fluid status is his most important at this time, greatest losses are from his ostomy, will try and keep him neutral by encouraging PO intake and adding some stool bulking agents. He has proven to be at high risk for dehydration, STACIE, and subsequent tacrolimus toxicity having now been admitted two times in the last month for similar constellations of symptoms. We have restarted his home ASA, statin, flecaninde, and metoprolol. No evidence of pAib since arrival. Lytes have not been optimal, working to replete. Plan: - flecanide to re-start this morning - optimize lytes - encourage PO intake - continue tacro 1mg bid - change from IV methypred to PO prednisone starting tomorrow (already received today's dose) - Sarna for rash - dispo planning, tentatively tomorrow #AMS - encephalopathy vs. Delerium, resolved DDX: Tacro tox, seizure, toxic metabolic encephalopathy, cefepime reaction - s/p cefepime - s/p zosyn - s/p ceftriaxone, ampicillin, and vancomycin - s/p 10mg/kg acyclovir Q8H - UA - not c/w infection - TSH 1.37 - CT head - no acute process - MRI as above, no acute process - LP as above, traumatic tap, ID not convinced this represents infection - appreciate neurology and ID recs - doing well off all antibiotics x48h #Fever?? 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 - continue with steroids for GVHD > methylpred 24mg qdaily --> prednisone 30mg qd starting 01/12 - tacro 1mg bid - acyclovir 800mg bid #Mild malnutrition #Hypomagnesemia #Hypophosphatemia - Phos replacement prn - Mg Ox 400 BID + IV prn - tolerating a regular diet #Hypokalemia, resolved - s/p IV & PO K - BMP qd #pAF - restart flecaninde 50mg bid today - continue home metoprolol 12.5mg bid (25 succ on discharge) - EKG as above #Hx of stroke - ASA - Statin FEN/PPX: -DVT ppx: Lovenox 40mg -Diet:Regular diet -CODE STATUS: Attempt Cardiopulmonary Resuscitation - Inpatient -Dispo: stable for d/c home tomorrow if lytes are stable and patient maintains PO intake today Hortensia Tenorio MD Internal Medicine PGY 2 Heme/Onc/BMT Pager #[phone] HEMATOLOGY/BMT STAFF PROGRESS NOTE I interviewed, examined and reviewed data on Herber Iverson Jr. today. I agree with Dr. Tenoiro's findings, assessment and plans as listed in her note. 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 He is now admitted for evaluation of altered mental status. This has improved gradually during his admission and he now appears to be back to his neurologic baseline. He still remains quite debilitated but evaluation by physical therapy indicates thatit would be safe for him to be discharged to home with home physical therapy. If he continues to do well. He could be discharged as soon as tomorrow. I reviewed Herber's situation and our plans for todaywith him during this visit. This patient meets criteria for inpatient level of care based on the above medical complexity. Parviz Modi MD Section of Hematology/Oncology Page: #[phone] Office Phone: [phone] Kelli Coronel RN - 01/11/2022 5:47 AM EDT Significant 24 hour events: No complaints overnight. Ostomy bag changed x4, continued to leak all night despite skin prep and stoma paste. Sleeping all night. 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 Pt asymptomatic, EKG ordered to evaluate QTC prior to starting cardiac medications. QTC 486, MD aware and Flecainide on hold until tomorrow. Pentamidine ordered for PJP ppx, per MD ok to give even with QTC prolonged. Port dressing changed and pt re accessed. prime broker at bedside for appliance change. Pt showered with significant other, tolerated well. IVF bolus given with good effect on HR. Mag replaced x2IV and PO mag added TID. Phos added TID, tolerating well. Pt had poor PO intake during the day, nutrition at bedside to help pt with meal choices. Pt worked with pt, OOB with SBA and FWW to ambulate around unit x3. Pt reported no SOB during ambulation, though very fatigued when returned to bed. Pt rested in bed with SO at bedside for remainder of the day. 01/09 PM No acute events overnight. Ostomy leaked around 9PM, could not get any of the Col[employer] bagsthat will supervisor reactor fueling to cha bag from stores. Replaced with 2 piece system available on unit. Phos lowat 1.8, Mg 0.56. ordered 2 gm Mag, no phos. Chemo plan & supportive medication: Tacro Baseline Weight: 90.3 kg (5/6) AM weight: 82.4kg Kristine Chapman, PT - 01/10/2022 10:15 AM EDT Physical Therapy Evaluation Patient profile: Herber Iverson Jr. is a 61 y.o. male with past medical history significant for??FLT3+AML / Allogeneic stem cell transplant:Today January 10 Day +80 who is being transferred from an OSH for worsening lethargy in the setting of presumed pneumonia being treated with cefapime, complicated by encephalopathy that has seemed to resolve, unclear cefapime vs toxicity.? Now with encephalopathy that has seemed to resolve, unclear cefapime vs. Toxic. LP shows T protein high, normal glucose, + lymphocytes. Could suspect a viral infection given the LP results, treatable viral infections have been tested for. Discussed with ID who suspect this is much more likely not infectious, and more c/w traumatic tap. Want to monitor off of abx and antivirals for a few more days. ?? Suspect his fluid status is his most important at this time, will try and keep him neutral with somestool bulking agents. ?? Will restart some of his other home meds, ASA, statin, flecaninde, metoprolol today. ?? In terms of GVHD, continue with methylpred for now. ?? In terms of tacrolimus levels: unclear the past two doses. Could suspect the IV dose given through the IV, may be adhering to the plastic. Repeat was low, will increase to 1 BID. Patient with the following active problems: Past Medical History: Diagnosis Date ??? AML (acute myeloblastic leukemia) 04/2021 ??? BPH (benign prostatic hyperplasia) ??? GERD (gastroesophageal reflux disease) ??? Paroxysmal atrial fibrillation ??? 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 ACHILLES TENDON SURGERY ??? IR LINE OR TUBE REMOVAL IN RECOVERY ROOM 11/05/2021 IR Line or Tube Removal in Recovery Room 11/05/2021 Kelli Diaz PA [facility] INTERVENTIONL RAD ??? IR MEDIPORT PLACEMENT 10/04/2021 IR Mediport Placement 10/04/2021 Kelli Diaz PA [facility] INTERVENTIONL RAD ??? IR TUNNELED CENTRAL VENOUS ACCESS NON-DIALYSIS 10/15/2021 IR Tunneled Central Venous Access Non-Dialysis 10/15/2021 Kelli Diaz PA [facility] INTERVENTIONL RAD ? ? PRO DIAGNOSTIC BONE MARROW BIOPSIES & ASPIRATIONS Right 09/12/2021 ([facility]) BONE MARROW BIOPSY AND ASPIRATION; DIAGNOSTIC performed by Parviz Modi MD [facility] OSC ? ? PRO DIAGNOSTIC BONE MARROW BIOPSIES & ASPIRATIONS N/A 10/07/2021 ([facility]) BONE MARROW BIOPSY AND ASPIRATION; DIAGNOSTIC performed by Parviz Modi MD [facility] ? ? PRO DIAGNOSTIC BONE MARROW BIOPSIES & ASPIRATIONS Left 12/23/2021 ([facility]) BONE MARROW BIOPSY AND ASPIRATION; DIAGNOSTIC performed by Parviz Modi MD [facility] ??? PRO EXPLORATORY OF ABDOMEN Midline 05/26/2021 @EXPLORATORY LAPAROTOMY, WITH/WITHOUT BIOPSY(S) (WRVU 12.54) performed by Mona Hernandes MD [facility] MAIN OR ??? PRO ILEOSTOMY/JEJUNOSTOMY, NONTUBE N/A 05/28/2021 @ILEOSTOMY OR JEJUNOSTOMY, NON TUBE (WRVU 17.59) performed by Lety Walter MD at [facility] MAIN OR ??? PRO REOPEN RECENT ABD EXPLORATORY N/A 05/28/2021 @EXPLORATORY LAPAROTOMY, REOPENING OF RECENT (WRVU 17.63) performed by Lety Walter MD at [facility] MAIN OR ??? TONSILLECTOMY AND ADENOIDECTOMY ??? XR FLUORO GUIDED LUMBAR PUNCTURE N/A 07/12/2021 XR Fluoro Guided Lumbar Puncture 07/12/2021 Frances Green MD [facility] RAD XRAY ??? XR FLUORO GUIDED LUMBAR PUNCTURE N/A 01/08/2022 XR Fluoro Guided Lumbar Puncture 01/08/2022 Yolette Solano, HEYDI [facility] RAD XRAY ??? XR FLUORO GUIDED LUMBAR PUNCTURE FOR IT CHEMOTHERAPY N/A 07/16/2021 XR Fluoro Guided Lumbar Puncture For IT Chemotherapy 07/16/2021 Nas Patino MD [facility] RAD XRAY ??? XR FLUORO GUIDED LUMBAR PUNCTURE FOR IT CHEMOTHERAPY N/A 07/19/2021 XR Fluoro Guided Lumbar Puncture For IT Chemotherapy 07/19/2021 Shae Alford MD [facility] RAD XRAY ??? XR FLUORO GUIDED LUMBAR PUNCTURE FOR IT CHEMOTHERAPY N/A 07/25/2021 XR Fluoro Guided Lumbar Puncture For IT Chemotherapy 07/25/2021 Nas Patino MD [facility] RAD XRAY ??? XR FLUORO GUIDED LUMBAR PUNCTURE FOR IT CHEMOTHERAPY N/A 07/29/2021 XR Fluoro Guided Lumbar Puncture For IT Chemotherapy 07/29/2021 [facility] RAD XRAY ??? XR FLUORO GUIDED LUMBAR PUNCTURE FOR IT CHEMOTHERAPY N/A 08/05/2021 XR Fluoro Guided Lumbar Puncture For IT Chemotherapy 08/05/2021 Nas Patino MD [facility] RAD XRAY ??? XR FLUORO GUIDED LUMBAR PUNCTURE FOR IT CHEMOTHERAPY N/A 08/01/2021 XR Fluoro Guided Lumbar Puncture For IT Chemotherapy 08/01/2021 Yolette Solano, BOILER WATER TESTER [facility] RAD XRAY ??? XR FLUORO GUIDED LUMBAR PUNCTURE FOR IT CHEMOTHERAPY N/A 07/22/2021 XR Fluoro Guided Lumbar Puncture For IT Chemotherapy 07/22/2021 [facility] RAD XRAY ??? XR FLUORO GUIDED LUMBAR PUNCTURE FOR IT CHEMOTHERAPY N/A 08/12/2021 XR Fluoro Guided Lumbar Puncture For IT Chemotherapy 08/12/2021 Jona Lowry MD [facility] RAD XRAY ??? XR FLUORO GUIDED LUMBAR PUNCTURE FOR IT CHEMOTHERAPY N/A 08/26/2021 XR Fluoro Guided Lumbar Puncture For IT Chemotherapy 08/26/2021 Yolette Solano, BOILER WATER TESTER [facility] RAD XRAY ??? XR FLUORO GUIDED LUMBAR PUNCTURE FOR IT CHEMOTHERAPY N/A 09/05/2021 XR Fluoro Guided Lumbar Puncture For IT Chemotherapy 09/05/2021 Yolette Solano, HEYDI [facility] RAD XRAY ??? XR FLUORO GUIDED LUMBAR PUNCTURE FOR IT CHEMOTHERAPY N/A 09/09/2021 XR Fluoro Guided Lumbar Puncture For IT Chemotherapy 09/09/2021 Yolette Solano, HEYDI [facility] RAD XRAY ??? XR FLUORO GUIDED LUMBAR PUNCTURE FOR IT CHEMOTHERAPY N/A 09/27/2021 XR Fluoro Guided Lumbar Puncture For IT Chemotherapy 09/27/2021 Yolette Solano, HEYDI [facility] RAD XRAY Active Non-Hospital Problems Diagnosis ??? Severe protein-calorie malnutrition ??? Failure to thrive in adult ??? Hypomagnesemia ??? S/P allogeneic bone marrow transplant ??? STACIE (acute kidney injury) ??? Dehydration ??? Paroxysmal atrial fibrillation ??? GERD (gastroesophageal reflux disease) ??? BPH (benign prostatic hyperplasia) ??? AML (acute myeloblastic leukemia) ??? Attention to ileostomy ??? Clostridium difficile colitis Social History: Home set-up: pt lives with significant other in a multi-level home, has a first floor set up, 3 NINFA Bathroom Set-up: walk in shower with built in shower seat Stairs: 3 NINFA, no rails, walker fits on steps, first floor set up Baseline Mobility: independent with ADLs, ambulates with a FWW, does not drive, for the past 2 weekspt has been needing help with showering d/t fatigue/deconditioning Equipment at home: FWW Fall history: no falls reported in past 6 months Precautions/Special Considerations: high fall risk, high risk for skin breakdown Lines: anterior chest port, PIV, ileostomy, external catheter Activity Orders: AAT Diet: Regular diet Mobility and Positioning Recommendations: ?? Pt. to utilize FWW and supervision (assistance only for line management) for ambulation and transfers with nursing. ?? Please encourage up to chair for meal times as able. ?? Pt encouraged to ambulate frequently with staff, getting into the bathroom for toileting and walking out in the marmolejo >/= 3 times daily as able. Subjective: ???I may have rushed it a little bit and not paced myself well.?? - regarding ambulation Objective: Pt seen for evaluation today. Pain: no actual or suspected pain Vital Signs: on RA, SpO2 > 95% throughout, BP supine 142/98, HR resting 102bpm up to 160bpm with activity - MD aware and said pt was good to continue with functional mobility; pt denied any abnormalsx Mental Status: alert, oriented to person, place, and time Vision: WFL Skin: all visible skin intact; pt complained of increased itchiness especially back, back was red suspect from laying on it and itching - RN and MD notified Musculoskeletal: ROM: WFL Strength: WFL, B LEs grossly at least 3+/5 Sensation: impaired sensation in B feet since starting cancer treatments in April 2021 Bed Mobility: Supine to Sit: independent, requires increased time and effort to complete Sit to Supine: not assessed, pt left seated in bedside recliner at end of session Transfers: Sit to Stand: supervision initially up to FWW, progressed to independent Stand to Sit: independent, fair eccentric control Bed to Chair: not assessed Gait: Distance: 75ft; > 150ft Device used: FWW Level of assist: supervision initially, progressed to independent, required assistance for line management Gait mechanics: pt demonstrated reciprocal gait pattern, no LOB, slow gait speed, and poor pacing strategies d/t wanting to increase ambulation distance Stairs: not assessed, no concerns with 3 NINFA at home, pt has been utilizing FWW prior to navigate stairs and demonstrated adequate strength and balance to perform, will have supervision when negotiating stairs at home Balance: Sitting Static: good Sitting Dynamic: good Standing Static: good with B UE support on FWW Standing Dynamic / Gait: Good with B UE support on FWW Education: patient and significant other has been educated on Bed mobility, Transfers, Assistive device/technique, Stairs, Breathing exercises, Safety , Gait , Activity pacing/Energy conservation, Homeprogram, Role of therapy, Balance and Discharge planning and verbalizes understanding. Patient status, treatment, and mobility recommendations discussed with nursing. Assessment: eHrber Iverson Jr. was seen today for physical therapy evaluation. 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 Despite these impairments pt is able to ambulate >150ft with FWW independently, only required assistance for line management. Pt is very motivated and wanted to increase ambulation distance, however educated pt on importance of pacing strategies in order to increase activity tolerance. Educated pt, nursing staff and mobility techs ambulating short distances more frequently throughout the day is more important than taking 1 long walk and being exhausted the rest of the day, all verbalized underst anding and all questions were addressed. Pt is cleared from a PT perspective to discharge home with intermittent supervision as needed for ADLs/IADLs, no DME needs (already has FWW), and follow up withhome PT. Will continue to monitor while admitted. Discharge Recommendations: Based on the current findings, Anticipated Discharge Disposition (PT): home with home health, home with supervision (intermittent supervision) when medically ready for hospital discharge. Consult Recommendations: No other consults recommended at this time. Equipment needs: Anticipated Equipment Needs at Discharge (PT): None (pt has FWW) Goals: Pt has met all goals for the acute setting. Will continue to monitor while admitted. Plan: Therapy Frequency (PT): Monitor. Patient/family understands and agrees with plan as stated above. PT Evaluation Code Rationale: ?? Diagnosis & Pertinent Co-Morbidities, personal factors, and present illness affecting Plan ofCare: (see above); Additional personal factors or co- morbidities that impact plan: ?? Total # of Factors: 0 1-2 3+ x ?? Examination of body system impairments, functional limitations and behaviors, and/or participation restrictions. Addressing 1-2 elements Addressing 3 + elements x Addressing 4 + elements ?? Clinical presentation: See assessment above. Stable/Uncomplicated Evolving/Fluctuating Symptoms Unstable/Unpredictable x ?? Clinical decision making of low complexity based on pt's functional performance as outlined in this evaluation. 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 is a 61 y.o. male Reason for intervention: Follow up Nutrition Recommendations: Continue regular diet as tolerated Continue CIB w/ ice cream BID Encouraged small, frequent meals and energy dense foods Monitor po intake Monitor lytes - Mag .56, Phos 1.8; continue to replete as appropriate Monitor weight trends Pt meets criteria for severe protein-calorie malnutrition as outlined below Active Orders Diet Regular diet Frequency: Effective Now Number of Occurrences: Until Specified Lab Results Component Value Date NA 136 01/10/2022 K 3.9 01/10/2022 CL 105 01/10/2022 CO2 20 (L) 01/10/2022 BUN 22 (H) 01/10/2022 CREATININE 0.89 01/10/2022 ESTGFR 92 01/10/2022 MAGNESIUM 0.56 (L) 01/10/2022 CALCIUM 8.1 (L) 01/10/2022 PHOS 1.8 (L) 01/10/2022 AST 17 01/06/2022 ALT 10 01/06/2022 ALKPHOS 104 01/06/2022 BILITOT 0.6 01/06/2022 BILIDIR 0.1 01/06/2022 TRIG 171 07/13/2021 HA1C 5.8 (H) 11/11/2021 [id number] 1,799 (H) 08/01/2021 SFOLATE 5.6 08/01/2021 IRON 144 05/06/2021 No results found for: POCGLU Skin Status: Shift Pressure Injury Prevention Occiput: No Injury Thoracic Spine: No Injury Sacral: No Injury Ischial - left: No Injury Ischial - right: No Injury Heel - left: No Injury Heel - right: No Injury Elbow - left: Redness, Blanchable Elbow - right: Redness, Blanchable Device Sites: IV sites Other Sites: R mediport Relevant medications: NS@100ml/hr, solumedrol, prograf, neutra-phos, protonix, mag sulfate, mag oxide Last Bowel Movement: 01/09/22 Admit Weight: 81.2 kg Estimated body mass index is 26.12 kg/m?? as calculated from the following: Height as of this encounter: 176 cm (5' 9.29). Weight as of this encounter: 80.9 kg (178 lb 5.6 oz). Rodman Body Weight: 72.2kg Usual Body Weight: Pt feels good ~240lbs Wt Readings from Last 15 Encounters: 01/10/22 80.9 kg (178 lb 5.6 oz) 12/26/21 88.6 kg (195 lb 6.4 oz) 12/23/21 88.9 kg (196 lb) 12/23/21 89.3 kg (196 lb 12.8 oz) 12/20/21 90.4 kg (199 lb 3.2 oz) 12/13/21 91.4 kg (201 lb 8 oz) 12/13/21 90.8 kg (200 lb 3.2 oz) 12/12/21 91.1 kg (200 lb 12.8 oz) 12/09/21 93.1 kg (205 lb 3.2 oz) 12/05/21 95.2 kg (209 lb 12.8 oz) 11/29/21 98.7 kg (217 lb 9.6 oz) 11/28/21 98.5 kg (217 lb 3.2 oz) 11/25/21 99.1 kg (218 lb 7.3 oz) 11/22/21 98.8 kg (217 lb 12.8 oz) 11/18/21 99.3 kg (218 lb 14.7 oz) Pt with 40lb weight loss (18% body weight) in 2 months, 70lb weight loss (28% body weight) in 8 months - clinically significant Assessment: Estimated needs: Calories: 3812-4093 (25-30 kcal/kg) Protein: 121 grams (1.5g/kg) Nutrition Focused Physical Exam (NFPE): Not performed Nutrition intake and intake history/Interview: Diet has advanced to regular. Followed up with pt whoreports a small improvement in appetite and po intake, eating cheerios and a banana for breakfast this morning. Drinking some of the CIB shakes; agreeable to continue. However, strongly dislikes the Boost pudding; will d/c. Plans to get on scale later today for updated standing scale weight. 01/08: Spoke with pt and partner, Chai. Pt reports poor appetite and intake over the past months which has worsened with taste changes. Pt with significant weight loss as noted above and has required tube feeds and TPN during previous admissions. Discussed ways to increase calorie and protein content of what pt is able to eat. Chai has been helping to prepare energy dense foods for pt but often he doesn't have the appetite or motivation to eat. Currently limited on full liquid diet but willing to try Boost Pudding and CIB mixed with ice cream and whole milk. Protein-calorie Malnutrition: < or equal to 75% of estimated energy requirement for > or equalto 1 month and >20% weight loss in 1 year is consistent with severe protein-calorie malnutrition in the setting of chronic illness (Cameron, JPEN J Parenteral Enteral Nutr. 2011; 36(3): 273-83) Nutrition to continue to follow up while inpatient Caridad Coats RD Pager #:[phone] Parviz Modi MD - 01/10/2022 7:10 AM EDT Inpatient Hematology/Oncology/SCT Progress Note Patient info: Name: Herber Iverson Jr. : 1960 PCP: LEISA Munguia PCP phone number: [phone] Date of Admission: 01/06/2022 ( Hospital Day 4 days ) Service: Hem/Onc Team A pg [id number] (09/03) Responsible Attending: Dr. 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 ?? 24 Hour Events/subjective: - Stable improvement through the day - consulted ID - plan to d/c abx - we did d/c antibiotics - continued to improve - started some bolus IVF for him this AM - hypomagnesemia - this AM given IV This AM - denies SOB, chest pain, abdominal pain - today can remember what has been going on yesterday Vitals: Last value Range last 24 hrs Temperature Temp: 36.5 ??C (97.7 ??F) Temp: [36.5 ??C (97.7 ??F)-36.7 ??C (98.1 ??F)] Heart Rate Heart Rate: (!) 105 Heart Rate: [88-105] Blood Pressure BP: (!) 147/93 BP: (125-155)/(90-96) Respiratory Rate Resp: 20 Resp: [18-22] SpO2 SpO2: 96 % SpO2: [96 %-98 %] Intake/Output Summary (Last 24 hours) at 01/10/2022 0710 Last data filed at 01/10/2022 0450 Gross per 24 hour Intake 1671 ml Output 4275 ml Net -2604 ml We did D/C fluids yesterday Patient Vitals for the past 168 hrs: Weight 01/10/22 0500 80.9 kg (178 lb 5.6 oz) 01/09/22 0419 82.4 kg (181 lb 9.6 oz) 01/08/22 0500 80.7 kg (178 lb) 01/07/22 0335 80.1 kg (176 lb 9.4 oz) 01/06/22 2151 81.2 kg (179 lb 0.2 oz) Admit wt: 81.2 kg -Last BM: Last Bowel Movement: 01/09/22 Physical Exam: Gen: following commands, Aox3, speaking in full sentences HEENT: PERRLA, EOMI by tracking, no icterus, MMM, poor oral dentitionon, dry mouth, some plaques in mouth CV: Regular rate and rhythm, no murmurs/rubs/gallops, rash flat diffuse over chest Pulm: Normal respiratory effort, CTA with good air entery bilaterally, no crackles. Abd: Soft, non-tender, non-distended. No guarding or rebound. Ostomy in place, dark stool watery Ext: No pedal edema. No gross abnormalities. Neuro: Speech: repeating sentences, creating own sentences, naming intact, simple math intact, following 1 step commands Strength: 4/5 diffusely UE/LE Reflexes: normal achilles, and decreased patellar, BR normal Attention: days of week backwards intact Medications: Scheduled Meds: ??? tacrolimus 1 mg Oral Nightly ??? tacrolimus 0.5 mg Oral Daily ??? pantoprazole EC 40 mg Oral Daily ??? tamsulosin 0.4 mg Oral Daily ??? acyclovir 800 mg Oral BID ??? fluconazole 400 mg Oral Nightly ??? nystatin 500,000 Units Oral 4 Times Daily ??? sodium chloride 0.9 % (flush) 5 mL Intravenous BID ??? enoxaparin 40 mg Subcutaneous Nightly ??? methylPREDNISolone sodium succinate 24 mg Intravenous Daily Continuous Infusions: PRN Meds:.calcium carbonate, sodium chloride 0.9 % (flush), lidocaine Labs: Recent Labs 01/10/22 0100 01/09/22 0025 01/08/22 0135 WBC 5.7 8.5 8.5 HGB 7.4* 7.7* 7.6* HCT 21.2* 22.8* 22.3* PLATELET 43* 59* 49* NEUTROABS 4.75 7.65* 7.90* Recent Labs 01/10/229901/09/22 0025 01/08/22 0135 NA 136 138 140 K 3.9 3.4* 3.8 CL 105 107 109* CO2 20* 19* 17* BUN 22* 26* 23* CREATININE 0.89 0.97 1.14 Recent Labs 01/10/220 01/09/22 0025 01/08/22 0135 CALCIUM 8.1* 7.9* 8.1* MAGNESIUM 0.56* 0.70 0.97 PHOS 1.8* 1.8* 3.1 Recent Labs 01/06/22 2320 AST 17 ALT 10 ALKPHOS 104 BILITOT 0.6 BILIDIR 0.1 Microbiology: Blood Culture: x2 negative Urine Culture: no nitrites, minimal WBCs LP: Glucose 67 Total protein 347 Nucleated cells -83, appears to be lymphocytes Lymphoma/Leukemia screen negative HSV - neg VSZ - neg Enterovirus - neg Cryptococcus - neg T protein high, normal glucose, + lymphocytes = viral infection Pertinent radiology/diagnostic studies: MRI: pending IMPRESSION 1. No new intra-axial lesion or abnormal enhancement. ?? 2. , As curvilinear site of blood products in the left frontal lobe potentially representing small area of hemorrhage or thrombosed developmental venous anomaly ID reccs: Monitor off antibiotics and IV antivirals Antiviral, antifungal and PCP prophylaxis per heme. Follow cultures and studies. 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 Now with encephalopathy that has seemed to resolve, unclear cefapime vs. Toxic. LP shows T protein high, normal glucose, + lymphocytes. Could suspect a viral infection given the LP results, treatable viral infections have been tested for. Discussed with ID who suspect this is much more likely not infectious, and more c/w traumatic tap. Want to monitor off of abx and antivirals for a few more days. Suspect his fluid status is his most important at this time, will try and keep him neutral with somestool bulking agents. Will restart some of his other home meds, ASA, statin, flecaninde, metoprolol today. ?? In terms of GVHD, continue with methylpred for now. In terms of tacrolimus levels: unclear the past two doses. Could suspect the IV dose given through the IV, may be adhering to the plastic. Repeat was low, will increase to 1 BID. Plan: - psyllium husk - fluids - ASA with hold for platelets less then 40 - pentamidine - EKG to his flecainide DDX: Tacro tox, seizure, toxic metabolic encephalopathy, cefepime reaction #AMS - encephalopathy vs. delerium - Ceftriaxone - d/c vanc - Tacrolimus level - pending - UA - not c/w infection - TSH - pending - CT head - no acute process - LP #Fever?? #HAP PNA in an immunocompromised patient - Cefepime 01/04 - 01/06 -01/09 - d/c Vancomycin 01/05 -01/09 - Zosyn 01/07 - ceftriaxone + amp 01/08 -01/09 - MRSA PCR - IV fluconazole - IV acyclovir ?? 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: Day 0 = 10/22/2021 #Possible GVHD - oral exam - consider EGD - continue with steroids for GVHD - methylpred 24mg qdaily Mild malnutrition #Hypomagnesemia #Hypophosphatemia - 01/10 - phos x4 PO - Mg Ox 400 BID - advancing diet #Hypokalemia - will replete with IV K for now given NPO - BID BMP #pAF -restart flecaninde - restart metoprolol #Hx of stroke ASA Statin FEN/PPX: -DVT ppx: Lovenox 40mg -Diet:Regular diet -CODE STATUS: Attempt Cardiopulmonary Resuscitation - Inpatient -Dispo: pending clinical course Sundar Ludwig MD Internal Medicine PGY 1 Heme/Onc/BMT Pager #[phone] HEMATOLOGY/BMT STAFF PROGRESS NOTE I interviewed, examined and reviewed data on Herber Iverson Jr. today. I agree with Dr. Ludwig's findings, assessment and plans as listed in his note. Mr. Iverson is now a day +80 status post his matched unrelated donor stem cell transplant for FLT3 mutation positive AML. He was initially admitted for altered mental status which has now completely resolved. He was able to ambulate with a walker with physical therapy today and is now eating. He is however having difficulty maintaining sufficient fluid intake to keep up with the output of his colostomy. We continue to work with neurology and the infectiousdisease team to determine the cause of his altered mental status but so far tests for specific infectious organisms have been negative. The team and I reviewed Herber's situation and our plans for today with him during this visit. This patient meets criteria for inpatient level of care based on the above medical complexity. Parviz Modi MD Section of Hematology/Oncology Page: #[phone] Office Phone: [phone] Radha Marmolejo RN - 01/10/2022 6:07 AM EDT Patient Summary Reason for admission: Presents from [facility] w/ AMS, fevers, possible PNA on CXR, FTT Relevant PMH: s/p Allo SCT for FLT3+ AML D+80 on 01/10 (day 0 10/22/21) which was c/b ischemic stroke, skin GVHD (on prednisone), BPH, Cdiff w/ megacolon and bowel resection w/ colostomy, paroxysmal Afib (home med Flecainide) Significant 24 hour events: 01/09 AM: Pt A&Ox4, VSS. Pleasant and appropriate. Diet advanced to regular tolerating well. PRN tums given this evening for heartburn- protonix added. Complains of urinary urgency and frequency- home Flomax added. ID consult: vanco, ceftriaxone, and ampicillin d/shirley; IV acyclovir and fluconazole switched to oral. 80mEq oral K+ replaced as well as scheduled oral KPhos. PT consult placed. Herber c/o fatigue most of day. Tacro level 2.8- increased slightly and switched to oral. Iliostomy pouch started to leak this evening- changed per Herber's instructions- CDI. BP's slightly elevated today up to 155/92. Day 3 COVID test formed. 01/09 PM No acute events overnight. Ostomy leaked around 9PM, could not get any of the Coloplast bagsthat will supervisor reactor fueling to cha bag from stores. Replaced with 2 piece system available on unit. Phos lowat 1.8, Mg 0.56. MD ordered 2 gm Mag, no phos. Baseline Weight: 90.3 kg (12/20) AM weight: 82.4kg Action List Replete Phos if ordered Monitor for s/s of infection Tacro Trough Thursday/ Encourage PO intake Discharge Plan: To be determined Situational Awareness & Contingency Planning Coloplast convex high output pouch #[id number] w/ adapt ring and barrier strip Partner Chrissy Aguilar (Verbal Only) (Brief summary, ask questions, restate orellana action/to do items) Concha Dumas RN - 01/09/2022 6:37 PM EDT Patient Summary Reason for admission: Presents from [facility] w/ AMS, fevers, possible PNA on CXR, FTT Relevant PMH: s/p Allo SCT for FLT3+ AML D+79 on 01/09 (day 0 10/22/21) which was c/b ischemic stroke, skin GVHD (on prednisone), BPH, Cdiff w/ megacolon and bowel resection w/ colostomy, paroxysmal Afib (home med Flecainide) Significant 24 hour events: 01/09 AM: Pt A&Ox4, VSS. Pleasant and appropriate. Diet advanced to regular tolerating well. PRN tums given this evening for heartburn- protonix added. Complains of urinary urgency and frequency- home Flomax added. ID consult: vanco, ceftriaxone, and ampicillin d/shirley; IV acyclovir and fluconazole switched to oral. 80mEq oral K+ replaced as well as scheduled oral KPhos. PT consult placed. Herber c/o fatigue most of day. Tacro level 2.8- increased slightly and switched to oral. Iliostomy pouch started to leak this evening- changed per Herber's instructions- CDI. BP's slightly elevated today up to 155/92. Day 3 COVID test formed. 01/08 PM Good urine output. Stool changed from dark brown/green to yellow with more substance. A&O x 4. Vanc trough critical at 22.1, MD aware. New order for Neutra phos for phos level of 1.8. [facility] Baseline Weight: 90.3 kg (12/20) AM weight: 82.4kg Action List Monitor for s/s of infection Tacro Trough Thursday/ Encourage PO intake Consults: PT [x] OT [] ELECTROLYSIST [] Last Flu vaccine: Last Covid Test Result: 01/06/2022 Not Detected Evelina Martino - 01/09/2022 12:00 PM EDT Foot massage given by VIRGINIA Higuera. Herber fell asleep during session and stayed asleep at end of session. Massage offered to Herber's girlfriend but she declined for today. [facility] Team will try and see 2-3x/week. Parviz Modi MD - 01/09/2022 7:18 AM EDT Inpatient Hematology/Oncology/SCT Progress Note Patient info: Name: Herber Iverson Jr. : 1960 PCP: LEISA Munguia PCP phone number: [phone] Date of Admission: 01/06/2022 ( Hospital Day 3 days ) Service: Hem/Onc Team A pg [id number] (09/03) Responsible Attending: Dr. 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 ?? 24 Hour Events/subjective: - Stable improvement through the day - EEG discontinued - LP performed This AM - denies SOB, chest pain, abdominal pain - today can remember what has been going on yesterday Vitals: Last value Range last 24 hrs Temperature Temp: 36.5 ??C (97.7 ??F) Temp: [36.4 ??C (97.5 ??F)-36.6 ??C (97.9 ??F)] Heart Rate Heart Rate: 92 Heart Rate: [91-102] Blood Pressure BP: (!) 131/94 BP: (130-133)/(86-99) Respiratory Rate Resp: 19 Resp: [18-20] SpO2 SpO2: 96 % SpO2: [95 %-98 %] Intake/Output Summary (Last 24 hours) at 01/09/2022 0718 Last data filed at 01/09/2022 0606 Gross per 24 hour Intake 6876 ml Output 3950 ml Net 2926 ml Patient Vitals for the past 168 hrs: Weight 01/09/22 0419 82.4 kg (181 lb 9.6 oz) 01/08/22 0500 80.7 kg (178 lb) 01/07/22 0335 80.1 kg (176 lb 9.4 oz) 01/06/22 2151 81.2 kg (179 lb 0.2 oz) Admit wt: 81.2 kg -Last BM: Last Bowel Movement: 01/08/22 Physical Exam: Gen: following commands, Aox3, speaking in full sentences HEENT: PERRLA, EOMI by tracking, no icterus, MMM, poor oral dentitionon, dry mouth, some plaques in mouth CV: Regular rate and rhythm, no murmurs/rubs/gallops, rash flat diffuse over chest Pulm: Normal respiratory effort, CTA with good air entery bilaterally, no crackles. Abd: Soft, non-tender, non-distended. No guarding or rebound. Ostomy in place, dark stool watery Ext: No pedal edema. No gross abnormalities. Neuro: Speech: repeating sentences, creating own sentences, naming intact, simple math intact, following 1 step commands Strength: 4/5 diffusely UE/LE Reflexes: normal achilles, and decreased patellar, BR normal Attention: days of week backwards intact Medications: Scheduled Meds: ? ? potassium phosphate (monobasic) 500 mg Oral 4 Times Daily WC & HS ??? nystatin 500,000 Units Oral 4 Times Daily ??? vancomycin 1,250 mg Intravenous Q24H ??? fluconazole 400 mg Intravenous Nightly ??? cefTRIAXone 2 g Intravenous Q12H ??? ampicillin 2 g Intravenous Q4H PIERCE ??? acyclovir 10 mg/kg/dose (Adjusted) Intravenous Q8H ??? sodium chloride 0.9 % (flush) 5 mL Intravenous BID ??? enoxaparin 40 mg Subcutaneous Nightly ??? tacrolimus 0.17 mg Intravenous 2 times per day ??? methylPREDNISolone sodium succinate 24 mg Intravenous Daily Continuous Infusions: ??? sodium chloride 0.9% 100 mL/hr (01/08/22 0949) PRN Meds:.calcium carbonate, sodium chloride 0.9 % (flush), lidocaine, [COMPLETED] vancomycin AND Vancomycin Level - MAR Order Reminder Labs: Recent Labs 01/09/22 0025 01/08/22 0135 01/07/22 0524 WBC 8.5 8.5 8.9 HGB 7.7* 7.6* 7.7* HCT 22.8* 22.3* 22.8* PLATELET 59* 49* 52* NEUTROABS 7.65* 7.90* 8.13* Recent Labs 01/09/22 0025 01/08/22 0135 01/07/22 1340 NA 138 140 139 K 3.4* 3.8 3.8 CL 107 109* 108* CO2 19* 17* 18* BUN 26* 23* 20 CREATININE 0.97 1.14 1.14 Recent Labs 01/09/22 0025 01/08/22 0135 01/07/22 1340 01/07/22 0524 CALCIUM 7.9* 8.1* 8.6 8.7 MAGNESIUM 0.70 0.97 0.67* 0.79 PHOS 1.8* 3.1 -- 2.2* Recent Labs 01/06/22 2320 AST 17 ALT 10 ALKPHOS 104 BILITOT 0.6 BILIDIR 0.1 Microbiology: Blood Culture: x2 negative Urine Culture: no nitrites, minimal WBCs LP: Glucose 67 Total protein 347 Nucleated cells -83, appears to be lymphocytes Lymphoma/Leukemia screen negative HSV - neg VSZ - pending Enterovirus - neg Cryptococcus - neg T protein high, normal glucose, + lymphocytes = viral infection Pertinent radiology/diagnostic studies: MRI: pending Assessment: This is a 61 y/o M with a PMHx of 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 Now with encephalopathy that has seemed to resolve, unclear cefapime vs. Toxic. LP shows T protein high, normal glucose, + lymphocytes. Could suspect a viral infection given the LP results, treatable viral infections have been tested for. Will d/w ID if there is any need for further testing, especially considering he is resolving at this time. ?? In terms of GVHD, continue with methylpred for now, but this could also be contributing to his mental status changes. Skin rash could also be 2/2 cefepime. Plan: - PT consult - d/c fluids - d/c vanc - given neg MRSA (do not suspect brain MRSA - this was for PNA coverage which makes neg MRSA smear appropriate. - replete Phos - replete Potassium - d/w ID DDX: Tacro tox, seizure, toxic metabolic encephalopathy, cefepime reaction #AMS - encephalopathy vs. delerium - Ceftriaxone, - d/c vanc - Tacrolimus level - pending - UA - not c/w infection - TSH - pending - CT head - no acute process - LP #Fever?? #HAP PNA in an immunocompromised patient - Cefepime 01/04 - 01/06 - d/c Vancomycin 01/05 - Zosyn 01/07 - ceftriaxone + amp 01/08 - - MRSA PCR - IV fluconazole - IV acyclovir ?? 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 today. I agree with Dr. Ludwig's findings, assessment and plans as listed in his note. Herber is now at day +79 status post his matched unrelated donor stem cell transplant for Flt 3 mutation positive AML. He is now admitted for treatment of pneumonia and altered mental status. His mental status has dramatically cleared over the last 2 days and he now appears to be very close to his neurologic baseline. CT scan and MRI scan of his brain did not show any significant abnormalities. Lumbar puncture performed yesterday showed an apparent increased white cell count and protein but no specific organisms have been identified on Gram stain or PCR. We appreciate the assistance of the neurology consult team and have asked the infectious disease teamto also consult on Herber's case as we continue to work to determine the cause of his altered mental status. The team and I reviewed Herber's situation and our plans for today with him and Chrissy during this visit. This patient meets criteria for inpatient level of care based on the above medical complexity. Parviz Modi MD Section of Hematology/Oncology Page: #[phone] Office Phone: [phone] Radha Marmolejo RN - 01/09/2022 6:03 AM EDT Patient Summary Reason for admission: Presents from [facility] w/ AMS, fevers, possible PNA on CXR, FTT Relevant PMH: s/p Allo SCT for FLT3+ AML D+79 on 01/09 (day 0 10/22/21) which was c/b ischemic stroke, skin GVHD (on prednisone), BPH, Cdiff w/ megacolon and bowel resection w/ colostomy, paroxysmal Afib (home med Flecainide) Significant 24 hour events: 01/08 PM Good urine output. Stool changed from dark brown/green to yellow with more substance. A&O x 4. Vanc trough critical at 22.1, MD aware. New order for Neutra phos for phos level of 1.8. [place] 01/08 AM: Pt A&Ox4, VSS. Pleasant and appropriate. EEG completed. LP completed, site c/d/I. Tolerating full liquid diet without issues. PRN tums given this evening for heartburn. Chemo plan & supportive medication: IV Tacro Baseline Weight: 90.3 kg (5) AM weight: 82.3kg Action List Change meds back to PO? Follow up on Potassium level (MD notified) Tacro Trough Thursday/ Encourage PO intake Mona Felder RN - 01/08/2022 6:41 PM EDT Patient Summary Reason for admission: Presents from [facility] w/ AMS, fevers, possible PNA on CXR, FTT Relevant PMH: s/p Allo SCT for FLT3+ AML D+78 on 01/08 (day 0 10/22/21) which was c/b ischemic stroke, skin GVHD (on prednisone), BPH, Cdiff w/ megacolon and bowel resection w/ colostomy, paroxysmal Afib (home med Flecainide) Significant 24 hour events: 01/08 AM: Pt A&Ox4, VSS. Pleasant and appropriate. EEG completed. LP completed, site c/d/I. Tolerating full liquid diet without issues. PRN tums given this evening for heartburn. Chemo plan & supportive medication: IV Tacro Baseline Weight: 90.3 kg (12/20) AM weight: 8080.74 kg Action List Change meds back to PO? 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 is a 61 y.o. male Reason for intervention: Malnutrition evaluation Nutrition Recommendations: Advance diet as tolerated Trial CIB w/ IC and Boost Pudding as discussed w/ pt Encouraged small, frequent meals and energy dense foods Monitor po intake Monitor weight trends Pt meets criteria for severe protein-calorie malnutrition as outlined below Active Orders Diet Full Liquid Frequency: Effective Now Number of Occurrences: Until Specified Lab Results Component Value Date NA 140 01/08/2022 K 3.8 01/08/2022 CL 109 (H) 01/08/2022 CO2 17 (L) 01/08/2022 BUN 23 (H) 01/08/2022 CREATININE 1.14 01/08/2022 ESTGFR 69 01/08/2022 MAGNESIUM 0.97 01/08/2022 CALCIUM 8.1 (L) 01/08/2022 PHOS 3.1 01/08/2022 AST 17 01/06/2022 ALT 10 01/06/2022 ALKPHOS 104 01/06/2022 BILITOT 0.6 01/06/2022 BILIDIR 0.1 01/06/2022 TRIG 171 07/13/2021 HA1C 5.8 (H) 11/11/2021 [id number] 1,799 (H) 08/01/2021 SFOLATE 5.6 08/01/2021 IRON 144 05/06/2021 No results found for: POCGLU Skin Status: Shift Pressure Injury Prevention Occiput: No Injury Thoracic Spine: No Injury Sacral: No Injury Ischial - left: No Injury Ischial - right: No Injury Heel - left: No Injury Heel - right: No Injury Elbow - left: Redness, Blanchable Elbow - right: Redness, Blanchable Device Sites: O2 sat monitor, IV sites Other Sites: R mediport Relevant medications: NS@100ml/hr, solumedrol, prograf Last Bowel Movement: 01/08/22 Admit Weight: 81.2 kg Estimated body mass index is 26.07 kg/m?? as calculated from the following: Height as of this encounter: 176 cm (5' 9.29). Weight as of this encounter: 80.7 kg (178 lb). Rodman Body Weight: 72.2kg Usual Body Weight: Pt feels good ~240lbs Wt Readings from Last 15 Encounters: 01/08/22 80.7 kg (178 lb) 12/26/21 88.6 kg (195 lb 6.4 oz) 12/23/21 88.9 kg (196 lb) 12/23/21 89.3 kg (196 lb 12.8 oz) 12/20/21 90.4 kg (199 lb 3.2 oz) 12/13/21 91.4 kg (201 lb 8 oz) 12/13/21 90.8 kg (200 lb 3.2 oz) 12/12/21 91.1 kg (200 lb 12.8 oz) 12/09/21 93.1 kg (205 lb 3.2 oz) 12/05/21 95.2 kg (209 lb 12.8 oz) 11/29/21 98.7 kg (217 lb 9.6 oz) 11/28/21 98.5 kg (217 lb 3.2 oz) 11/25/21 99.1 kg (218 lb 7.3 oz) 11/22/21 98.8 kg (217 lb 12.8 oz) 11/18/21 99.3 kg (218 lb 14.7 oz) Pt with 40lb weight loss (18% body weight) in 2 months, 70lb weight loss (28% body weight) in 8 months - clinically significant Assessment: Estimated needs: Calories: 6169-3442 (25-30 kcal/kg) Protein: 121 grams (1.5g/kg) Nutrition Focused Physical Exam (NFPE): Not performed Nutrition intake and intake history/Interview: Spoke with pt and partner, Chai. Pt reports poor appetite and intake over the past months which has worsened with taste changes. Pt with significant weight loss as noted above and has required tube feeds and TPN during previous admissions. Discussed waysto increase calorie and protein content of what pt is able to eat. Chai has been helping to prepareenergy dense foods for pt but often he doesn't have the appetite or motivation to eat. Currently limited on full liquid diet but willing to try Boost Pudding and CIB mixed with ice cream and whole milk. Protein-calorie Malnutrition: < or equal to 75% of estimated energy requirement for > or equalto 1 month and >20% weight loss in 1 year is consistent with severe protein-calorie malnutrition in the setting of chronic illness (White et al, JPEN J Parenteral Enteral Nutr. 2012 December; 36(3): 273-83) Nutrition to continue to follow up while inpatient Caridad Coats RD Pager #:[phone] Parviz Modi MD - 01/08/2022 6:52 AM EDT Inpatient Hematology/Oncology/SCT Progress Note Patient info: Name: Herber Iverson Jr. : 1960 PCP: LEISA Munguia PCP phone number: [phone] Date of Admission: 01/06/2022 ( Hospital Day 2 days ) Service: Hem/Onc Team A pg [id number] (09/03) Responsible Attending: Dr. 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 ?? 24 Hour Events/subjective: - Improved intermittently during the day, was speaking in short sentences, recognized Dr. Modi, was following commands - then had again had a decreased level of consciousness - given his fluctuating encephalopathy neurology consulted - MRI/LP/and EEG ordered - started empiric meningitis therapy : ceftriaxone, ampicillin, vanc, acyclovir - acyclovir to treatment dosing 10mg/kg This AM - no complaints at this time aside from a dry mouth - denies SOB, chest pain, abdominal pain - was unaware of what was going on yesterday Vitals: Last value Range last 24 hrs Temperature Temp: 36.4 ??C (97.5 ??F) Temp: [36.3 ??C (97.3 ??F)-37.5 ??C (99.5 ??F)] Heart Rate Heart Rate: -- Blood Pressure BP: 135/86 BP: (135-144)/(86-92) Respiratory Rate Resp: 18 Resp: [18-30] SpO2 SpO2: 98 % SpO2: [97 %-99 %] Intake/Output Summary (Last 24 hours) at 01/08/2022 0652 Last data filed at 01/08/2022 0548 Gross per 24 hour Intake 5190.43 ml Output 2575 ml Net 2615.43 ml Patient Vitals for the past 168 hrs: Weight 01/08/22 0500 80.7 kg (178 lb) 01/07/22 0335 80.1 kg (176 lb 9.4 oz) 01/06/22 2151 81.2 kg (179 lb 0.2 oz) Admit wt: 81.2 kg -Last BM: Last Bowel Movement: 01/08/22 Physical Exam: Gen: following commands, Aox3, speaking in full sentences HEENT: PERRLA, EOMI by tracking, no icterus, MMM, poor oral dentitionon, dry mouth, some plaques in mouth CV: Regular rate and rhythm, no murmurs/rubs/gallops, rash flat diffuse over chest Pulm: Normal respiratory effort, CTA with good air entery bilaterally, no crackles. Abd: Soft, non-tender, non-distended. No guarding or rebound. Ostomy in place, dark stool watery Ext: No pedal edema. No gross abnormalities. Neuro: Speech: repeating sentences, creating own sentences, naming intact, simple math intact, following 1 step commands Strength: 4/5 diffusely UE/LE Reflexes: normal achilles, and decreased patellar, BR normal Attention: days of week backwards intact Medications: Scheduled Meds: ??? vancomycin 1,250 mg Intravenous Q18H ??? fluconazole 400 mg Intravenous Nightly ??? cefTRIAXone 2 g Intravenous Q12H ??? ampicillin 2 g Intravenous Q4H PIERCE ??? acyclovir 10 mg/kg/dose (Adjusted) Intravenous Q8H ??? sodium chloride 0.9 % (flush) 5 mL Intravenous BID ??? enoxaparin 40 mg Subcutaneous Nightly ??? tacrolimus 0.17 mg Intravenous 2 times per day ??? methylPREDNISolone sodium succinate 24 mg Intravenous Daily Continuous Infusions: ??? sodium chloride 0.9% 100 mL/hr (01/07/22 1756) PRN Meds:.sodium chloride 0.9 % (flush), lidocaine, [COMPLETED] vancomycin AND Vancomycin Level - MAR Order Reminder Labs: Recent Labs 01/08/22 0135 01/07/22 0524 01/06/22 2320 WBC 8.5 8.9 9.4 HGB 7.6* 7.7* 8.3* HCT 22.3* 22.8* 23.8* PLATELET 49* 52* 57* NEUTROABS 7.90* 8.13* 8.69* Recent Labs 01/08/22 0135 01/07/22 1340 01/07/22 0524 NA 140 139 139 K 3.8 3.8 3.0* CL 109* 108* 108* CO2 17* 18* 17* BUN 23* 20 21* CREATININE 1.14 1.14 1.18 Recent Labs 01/08/22 0135 01/07/22 1340 01/07/22 0524 01/06/22 2320 CALCIUM 8.1* 8.6 8.7 8.9 MAGNESIUM 0.97 0.67* 0.79 0.52* PHOS 3.1 -- 2.2* 2.5 Recent Labs 01/06/22 2320 AST 17 ALT 10 ALKPHOS 104 BILITOT 0.6 BILIDIR 0.1 Microbiology: Blood Culture: x2 negative Urine Culture: no nitrites, minimal WBCs Pertinent radiology/diagnostic studies: MRI: pending Assessment: This is a 61 y/o M with a PMHx of 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 Now with encephalopathy, that is fluctuating. Given this expanded to meningitis coverage with ceftriaxone, ampicillin, vanc, and acyclovir to treatment dosing 10mg/kg. Also will on EEG, will get LP andMRI pending at this time. ?? In terms of GVHD, continue with methylpred for now, but this could also be contributing to his mental status changes. Skin rash could also be 2/2 cefepime. Plan: - MRI/LP/and EEG ordered - started empiric meningitis therapy : ceftriaxone, ampicillin, vanc, acyclovir - acyclovir to treatment dosing 10mg/kg - bedside swallow evaluation - nystatin swallow today DDX: Tacro tox, seizure, toxic metabolic encephalopathy, cefepime reaction #AMS - encephalopathy vs. delerium - Cefepime to Zoysn - Tacrolimus level - pending - UA - not c/w infection - TSH - pending - CT head - no acute process #Fever?? #HAP PNA in an immunocompromised patient - Cefepime 01/04 - 01/06 - Vancomycin 01/05 - Until MRSA returns - MRSA PCR - IV fluconazole - IV acyclovir ?? 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 today. I agree with Dr. Ludwig's findings, assessment and plans as listed in his note. Mr. Iverson is now at day +78 status post allogeneic stem cell transplant for flit 3 positive AML. He is now admitted for evaluation and treatment of alteredmental status as well as recently diagnosed pneumonia. He was difficult to arouse and oriented only to person yesterday but he is now fully alert and fully oriented. So far, our evaluation including head CT and EEG have shown no serious underlying neurologic issue. Head MRI reading is pending and LP is planned but it is encouraging to see his improvement. At this point in his evaluation, it seems likely that metabolic issues were the cause of his disorientation. I reviewed Herber's situation and our plans for today with him during this visit. This patient meets criteria for inpatient level of care based on the above medical complexity. Parviz Modi MD Section of Hematology/Oncology Page: #[phone] Office Phone: [phone] Radha Marmolejo RN - 01/08/2022 6:43 AM EDT Patient Summary Reason for admission: Presents from [facility] w/ AMS, fevers, possible PNA on CXR, FTT Relevant PMH: s/p Allo SCT for FLT3+ AML D+78 on 01/08 (day 0 10/22/21) which was c/b ischemic stroke, skin GVHD (on prednisone), BPH, Cdiff w/ megacolon and bowel resection w/ colostomy, paroxysmal Afib (home med Flecainide) Significant 24 hour events: 01/07 PM Answers orientation questions correctly, but confused at times. Removed EEG leads overnight,but they were replaced. Brain MRI pending. Replaced External Catheter, ostomy continues to put out liquid stool. Had Ativan before MRI, slept well . Chemo plan & supportive medication: IV Tacro Baseline Weight: 90.3 kg (12/20) AM weight: 80.[address] negative IV Tacro Mouth care Incontinence care; male external catheter Synthesis (Verbal Only) (Brief summary, ask questions, restate orellana action/to do items) Lanny Krishnan RN - 01/07/2022 6:05 PM EDT Patient Summary Reason for admission: Presents from [facility] w/ AMS, fevers, possible PNA on CXR, FTT Relevant PMH: s/p Allo SCT for FLT3+ AML D+77 on 01/07 (day 0 10/22/21) which was c/b ischemic stroke, skin GVHD (on prednisone), BPH, Cdiff w/ megacolon and bowel resection w/ colostomy, paroxysmal Afib (home med Flecainide) Significant 24 hour events: 01/07 AM: Mental status has waxed and waned today. At 0730 pt disoriented X4; mute. As the day progressed pt has been more conversive; intermittently knowing his name and . Frequently making illogical statements like I am here for a dog, a dogs . Occasionally gets agitated but easily redirected. Tacro level came back at 2.7. Tacro administered through PIV. All other meds remain IV. Pts mouthvery dry/cracked with lesions. Frequent mouth care done. Wound care at bedside to assess for questionable GVHD rash. Wound ostomy nurse at bedside to change leaking ileostomy bag. Condom catheter utilized as pt remains incontinent. Antibx changed to Rocephin and Ampicillin. BMP drawn this afternoon, mag and K+ replaced per orders. Herber now hooked to 24 hour EEG. MRI safety sheet complete. A one time dose of ativan is ordered to be given prior to MRI. Partner and friend at bedside today. Action List Per neurology: EEG, Brain MRI and 24 EEG to be done *Has a one time dose of IV ativan to be given prior to MRI Head CT negative IV Tacro Mouth care Incontinence care; male external catheter Situational Awareness & Contingency Planning Coloplast convex high output pouch #[id number] w/ adapt ring and barrier strip; was changed on 01/07 Partner Chrisys Parviz Modi MD - 01/07/2022 7:24 AM EDT Images from the original note were not included. Inpatient Hematology/Oncology/SCT Progress Note Patient info: Name: Herber Iverson Jr. : 1960 PCP: LEISA Munguia PCP phone number: [phone] Date of Admission: 01/06/2022 ( Hospital Day 1 day ) Service: Hem/Onc Team A pg [phone] (09/03) Responsible Attending: Dr. 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 ?? HPI summary - partially abridged from Dr. Quiros's transfer note ?? Mr. 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 He presented to an OSH with AMS??and unresponsiveness??at the beginning of this week??and admitted for??dehydration and acute??on chronic??CKD. He was fluid resucitated and his symptoms improved. On 01/04 Mr. Iverson developed??a fever to 38.7C with associated fatigue. Work up with imaging showed XR evidence of PNA. He was started on cefepime given his hx of transplant, he was not neutropenic. ?? 01/05, patient was noted to be less alert and not oriented, with decreased PO, did not recognize family. Still with fevers to??37.9 earlier today. Exam per OSH he can respond briefly with yes/no noddingbut was very lethargic and unable to sustain attention, new nonspecific rash noted. Antibiotics werebroadened to vancomycin. Vital signs: BP 106/70, HR 100, T 37.9 In the ED: ?? - patient is mute and does not speak. Interactions with the patient result in him swinging at the staff. Further history unable to be obtained. - CT head ordered - no acute intercranial pathology noted - best friend urbano is DPOA - hypokalemic to 3.0 started on IV K through chemo port 24 Hour Events/subjective: Y/N to pain - denied pain Knows name and date of No pain with neck flexion Vitals: Last value Range last 24 hrs Temperature Temp: 36.5 ??C (97.7 ??F) Temp: [36.5 ??C (97.7 ??F)-37.9 ??C (100.2 ??F)] Heart Rate Heart Rate: -- Blood Pressure BP: (!) 143/92 BP: (133-145)/(70-92) Respiratory Rate Resp: 20 Resp: [20-26] SpO2 SpO2: 98 % SpO2: [97 %-98 %] Intake/Output Summary (Last 24 hours) at 01/07/2022 0726 Last data filed at 01/07/2022 0530 Gross per 24 hour Intake 825.78 ml Output 825 ml Net 0.78 ml Patient Vitals for the past 168 hrs: Weight 01/07/22 0335 80.1 kg (176 lb 9.4 oz) 01/06/22 2151 81.2 kg (179 lb 0.2 oz) Admit wt: 81.2 kg -Last BM: Last Bowel Movement: 01/07/22 Physical Exam: Gen: Jumpy, following commands, Aox1 HEENT: PERRLA, EOMI by tracking, no icterus, MMM, poor oral dentitionon, old dry blood in mouth, negpain with neck flexion, knee CV: Regular rate and rhythm, no murmurs/rubs/gallops, rash flat diffuse over chest Pulm: Normal respiratory effort, CTA with good air entery bilaterally, no crackles. Abd: Soft, non-tender, non-distended. No guarding or rebound. Ostomy in place, dark stool watery Ext: No pedal edema. No gross abnormalities. Neuro: Naming x1 object, Knows self, Y/n questions, spastic, but no increased reflexes, + asterixis,Wrist hyperextention. Medications: Scheduled Meds: ??? vancomycin 1,250 mg Intravenous Q18H ??? potassium chloride 20 mEq Intravenous Q2H ??? piperacillin-tazobactam 3.375 g Intravenous Q8H ??? fluconazole 400 mg Intravenous Nightly ??? sodium chloride 0.9 % (flush) 5 mL Intravenous BID ??? enoxaparin 40 mg Subcutaneous Nightly ??? tacrolimus 0.17 mg Intravenous 2 times per day ??? methylPREDNISolone sodium succinate 24 mg Intravenous Daily ??? acyclovir 250 mg/m2/dose (Adjusted) Intravenous Q12H Continuous Infusions: ??? lactated Ringers 125 mL/hr (01/07/22 301) PRN Meds:.sodium chloride 0.9 % (flush), lidocaine, [COMPLETED] vancomycin AND Vancomycin Level - MAR Order Reminder Labs: Recent Labs 01/07/22 0501/06/220 WBC 8.9 9.4 HGB 7.7* 8.3* HCT 22.8* 23.8* PLATELET 52* 57* NEUTROABS 8.13* 8.69* Recent Labs 01/07/22 0501/06/22 2320 NA 139 140 K 3.0* 3.2* CL 108* 108* CO2 17* 17* BUN 21* 23* CREATININE 1.18 1.37 Recent Labs 01/07/22 0524 01/06/22 2320 CALCIUM 8.7 8.9 MAGNESIUM 0.79 0.52* PHOS 2.2* 2.5 Recent Labs 01/06/22 2320 AST 17 ALT 10 ALKPHOS 104 BILITOT 0.6 BILIDIR 0.1 Microbiology: Blood Culture: x2 negative Urine Culture: no nitrites, minimal WBCs Pertinent radiology/diagnostic studies: Results for orders placed or performed during the hospital encounter of 01/06/22 CT Head wo Contrast (Generic) (Exam End: 01/07/2022 4:01 AM) Impression No acute intracranial abnormality. Thank you for letting us participate in the care of this patient. If you are a health care provider and have any questions regarding this report, please contact the number below. For patients who have questions please contact the health child care worker that requested your imaging first. Electronically signed by: Alondra Ramirez MD, [facility] ([phone]), at 01/07/2022 6:28 AM ?? Imaging:?? CXR 01/04 b/l opacities in the bases - R worse then L, suspect b/l effusions as well ? 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 ?? In terms of PNA, agree with XR findings with R worse then L lung opacities would want to treat for HAP. Likely on appropriate treatment at this point, will continue as is. Now with encephalopathy, seems to be worsening. TSH pending, switching the cefepime to Zoysn, tacro level pending. CT head without acute process. UA, blood cx pending at this time. Pending tacrolimus levels - last week was elevated. On rounds his exam was vastly improved from AM - changed from mute/and pain - to responsive and speaking1-2 word sentences. Much more alert. Do not suspect stroke based on his CT and improved findings. Will discuss with neurology, will consider EEG, but also do not suspect seizures given his exam this morning, but he may of been post ictal which would explain the change. Would consider LP if not improving - zosyn no 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 COORDINATOR coverage so will see. ?? In terms of GVHD, continue with methylpred for now, but this could also be contributing to his mental status changes. Skin rash could also be 2/2 cefepime. Plan: - cefepime to zosyn - Hold tacro for level - neurology consult - consider EEG/LP DDX: Tacro tox, seizure, toxic metabolic encephalopathy, cefepime reaction #AMS - encephalopathy vs. delerium - Cefepime to Zoysn - Tacrolimus level - pending - UA - not c/w infection - TSH - pending - CT head - no acute process #Fever?? #HAP PNA in an immunocompromised patient - Cefepime 01/04 - 01/06 - Vancomycin 01/05 - Until MRSA returns - MRSA PCR - IV fluconazole - IV acyclovir ?? 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 I agree with Dr. Ludwig's findings, assessment and plans as listed in his note. See my admission note from earlier today for additional details. I reviewed Herber's situation and our plans for today with him during this visit. This patient meets criteria for inpatient level of care based on the above medical complexity. Parviz Modi MD Section of Hematology/Oncology Page: #[phone] Office Phone: [phone] Iggy Mcgrath RN - 01/07/2022 6:41 AM EDT Illness Severity [x] Stable [] Watcher [] Unstable Patient Summary Reason for admission: Presents from [facility] w/ AMS, fevers, possible PNA on CXR, FTT Relevant PMH: s/p Allo SCT for FLT3+ AML D+77 on 01/07 (day 0 10/22/21) which was c/b ischemic stroke, skin GVHD (on prednisone), BPH, Cdiff w/ megacolon and bowel resection w/ colostomy, paroxysmal Afib (home med Flecainide) Significant 24 hour events: 01/06 PM: Presented to [facility] at 11pm. Disoriented x4, unable to speak, looking around spontaneously, restless/ agitated w/ staff while doing tasks. VSS, afebrile. Noticed pt itching aggressively and picking at cha cathter that per RN at previous facility was placed today, noticed yellow/ blood drainage leaking around catheter insertion site-- cha removed and external urinary catheter placed as pt is incontinent. Ua and Ucx sent. All medications ordered IV d/t pt unable to follow commands to take PO meds. K and Mg replaced last night, K 3.0 this AM, first bag of 20 meQ infusing now. Port dressingchanged. Head CT done, awaiting results. Ativan administered before head CT, pt now resting comfortably and less agitated. Action List Head CT done, awaiting results *Port drerssing changed 01/06 on admission d/t old dressing dirty/ falling off but needle not changed-- all due to be changed 01/10 ?check w/ pharmacy if want a Vanco trough before next dose (8pm tonight) IV Tacro Mouth care- teeth w/ a lot of plaque but pt agitated/ refuses when try mouth care Incontinence care- cha removed, picking off external catheter, skin reddened documented in this encounter H&P Notes Parviz Modi MD - 01/06/2022 3:18 PM EDT Images from the original note were not included. 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 HPI - partially abridged from Dr. Quiros's transfer note Mr. 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 He presented to an OSH with AMS and unresponsiveness??at the beginning of this week and admitted for dehydration and acute on chronic CKD. He was fluid resucitated and his symptoms improved. On 01/04 Mr. Iverson developed a fever to 38.7C with associated fatigue. Work up with imaging showed XR evidence of PNA. He was started on cefepime given his hx of transplant, he was not neutropenic. 01/05, patient was noted to be less alert and not oriented, with decreased PO, did not recognize family. Still with fevers to 37.9 earlier today. Exam per OSH he can respond briefly with yes/no nodding but was very lethargic and unable to sustain attention, new nonspecific rash noted. Antibiotics were broadened to vancomycin. Vital signs: BP 106/70, HR 100, T 37.9 Here at the [facility], patient is mute and does not speak. Interactions with the patient result in him swinging at the staff. Further history unable to be obtained. Exam: Vitals: Patient Vitals for the past 8 hrs: BP Temp Temp src Resp SpO2 Height Weight 01/06/22 2232 -- 36.5 ??C (97.7 ??F) Tympanic -- -- -- -- 01/06/22 2151 (!) 145/91 37.9 ??C (100.2 ??F) Axillary 26 98 % 176 cm (5' 9.29) 81.2 kg (179 lb 0.2oz) General: non speaking, a/o x 0 HEENT: white sclera, CN 2-12 intact, EOMI intact CV: nl S1S2, RRR Resp: CTAB, No increased work of breathing, not using accessory muscles Abdomen, soft, NT, ND, + BS Extremities: No pitting edema, radial pulses intact b/l Skin: warm and dry Neuro: + 5/5 UE/LE strength, sensation to light touch intact b/l Labs: -- -- -- -- -- -- -- -- H/H -- -- -- -- -- -- -- -- -- -- -- -- --N (--B) / --L / --M / --E / --B Chemistry: Cr??1.8 - improving LFTs normal UA negative Chest X-ray??showed evidence of PNA Blood cultures: no growth thus far on 12/29, 01/04 Lactic acid 1.2 Ammonia normal TSH unremarkable ?? Imaging:?? CXR 01/04 b/l opacities in the bases - R worse then L, suspect b/l effusions as well ? 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 In terms of PNA, agree with XR findings with R worse then L lung opacities would want to treat for HAP. Likely on appropriate treatment at this point, will continue as is. 15% of ICU patient on cefepime with - of those commonly had renal dysfunction (80%) and required intensive care (81% of patients with a reported location). All patients exhibited altered mental status, with reduced consciousness (47%), myoclonus (42%), and confusion (42%) Reference: Journal of Crit Care 2017 Jun 30;21(1):276. doi: 10.1186/[id number]. Otherwise would get a UA, and CBC, BMP, and FS on arrival to r/o other organic causes of AMS. Does not appear to be related to ETOH - reports of few drinks per year so would not start thiamine. Do not suspect he has hepatic encephalopathy - no notes of liver dysfunction per chart review. Can check TSH. 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 Could consider this as a possible etiology as well, either the steroids or the GVHD itself. Head pathology a possibility, however no fevers or other symptoms to allude to meningitis. Low threshold for LP. Plan: #AMS - encephalopathy vs. delerium - Zoysn to cefepime - Tacrolimus level - UA - TSH - CT head #Fever?? 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 I agree with Dr. Bailey's findings, assessment and plans as listed in his note. Herber is nowat day +77 s/p allogeneic HSCT for Flt3 mutation positive AML. While his counts have recovered to atleast minimally adequate levels and restaging BM Bx from ~3 weeks ago showed FELY with >95% chimerism, his course has been complicated by failure to thrive including inability to take adequate hydration and nutrition. He seemed to improve after starting prednisone at 30 mg per day for oresumed generalized GVHD but then was admitted to [facility] with ARF and had been improving when he developed PNA and oliva bsequent neurologic changes and is now transferred for evaluation and treatment of his neurologic changes, metabolic abnormalities, pneumonia and GVHD. This patient meets criteria for inpatient level of care based on the above medical complexity. Parviz Modi MD Section of Hematology/Oncology Page: [phone] Office Phone: [phone] documented in this encounter Procedure Notes Graham Ramirez MD - 01/08/2022 5:00 AM EDTAssociated Order(s): EEG 24 HOUR MONITORING, PORTABLE Pre-Procedure Diagnose(s): Encephalopathy [facility] Department of Neurology Continuous EEG Report Patient: Herber Iverson Jr., [id number] Date: 01/08/22 Start Time: 17:16 on 01/07/22 End Time: 11:18 on 01/08/22 Duration ~18 hours Fellow: Graham Ramirez MD Attending: Rene Adams MD History: Per notes, Herber Iverson Jr. is a 61 y.o. male with pmhx of FLT3+ AML / Allogeneic stem celltransplant who was transferred to [facility] Hematology service from [facility] overnight for AMS in setting of penumonia being treated with Cefepime. Neurology is consulted for ongoing encephalopathy. Methods: A 21 channel digitized electroencephalogram was by the [facility] Clinical Neurophysiology Laboratory. The 10/20 international system of electrode placement was used and bipolar and referential electrode montages were recorded. Video was recorded during the session. Background Symmetry Symmetric Continuity Continuous Breach Present Absent PDR Present 6-7Hz Background EEG Frequency Theta AP Gradient Present Present Variability Present Reactivity Present Voltage Normal Stage II Sleep Transients Present and normal Periodic/Rhythmic Patterns Yes Periodic/Rhythmic Patterns Generalized (G) Nature (Main Term 2) Periodic Discharges (PD) Major Modifiers Prevalence Occasional (1-9%) Duration Very Brief (<10 sec) Frequency 1.5/s} Phases 3 Sharpness Sharp (70-200ms) Absolute Amplitude Medium (50-199??V) Triphasic Morphology Yes Lag A-P (Anterior-Posterior) Sporadic Epileptiform Discharges Absent Interpretation This EEG is abnormal due to: 1. Occasional generalized periodic discharges at 1-1.5 Hz coming in isolation or as very brief 2-3 second runs. This discharges often have a triphasic morphology and anterior to posterior lag 2. Continuous generalized slowing of the background in the theta range with a PDR of 6-7Hzz CLINICAL CORRELATION: This abnormal EEG is suggestive of a diffuse mild to moderate nonspecific cerebral dysfunction. No seizures or epileptiform discharges seen. Graham Ramirez MD Clinical Neurophysiology Fellow Associated attestation - Rene Adams MD - 01/08/2022 12:40 PM EDT I reviewed the EEG and I agree with the interpretation as written. MD Jeremy Waterman Kevin P, MD - 01/07/2022 7:35 PM EDT Preliminary EEG Report: First 90 minutes of EEG reviewed. This EEG is abnormal due to intermittent slowing of the background to delta frequencies in wakefulness and intermittent generalized periodic discharges which are nonspecific markers of global cerebral dysfunction. No seizures or epileptiform discharges seen thus far. Full report to follow. Yan Luna MD Epilepsy Fellow PGY-5 Aminata Walter - 01/07/2022 5:59 PM EDT [facility] Department of Neurology Inpatient Continuous EEG Report Name of the Patient: Herber Iverson Jr. Date of : 1960 Date of Service: 01/07/2022 Referring physician: Jona Bazan MD BRIEF HISTORY: Herber Iverson Jr. is a 61 y.o. patient with a PMHs of AML s/p allogenic stem cell transplant who presented from OSH for management of lethargy and AMS in the setting of pneumonia. MEDICATIONS: Current Facility-Administered Medications Medication Dose Route Frequency Provider Last Rate Last Admin ??? vancomycin (Vancocin) 1.25 gram in sodium chloride 0.9% 250 mL infusion 1,250 mg Intravenous Q18H Moisés Mcgill MD ??? fluconazole (Diflucan) 400 mg in sodium chloride 0.9% 200 mL infusion 400 mg Intravenous NightParviz Aguilar MD ??? sodium chloride 0.9% infusion 100 mL/hr Intravenous Continuous OfriSundar MD 100 mL/hr at 01/07/22 1756 100 mL/hr at 01/07/221755 ??? magnesium sulfate 2 g in sterile water 50 mL infusion 2 g Intravenous Q2H Hortensia Tenorio MD 25mL/hr at 01/07/22 1756 2 g at 01/07/221755 ??? cefTRIAXone (Rocephin) 2 g vial attach to sodium chloride 0.9% 50 mL Mini- Bag Plus 2 g Intravenous Q12H Hortensia Tenorio MD Stopped at 01/07/22 171 ??? ampicillin (Omnipen) 2 g vial attach to sodium chloride 0.9% 100 mL Mini-Bag Plus 2 g Intravenous Q4H [facility] Hortensia Tenorio MD 400 mL/hr at 01/07/22 1756 2,000 mg at 01/07/221755 ??? acyclovir (Zovirax) 753 mg in sodium chloride 0.9% 265.06 mL infusion 10 mg/kg/dose (Adjusted) Intravenous Q8H Hortensia Tenorio MD ??? LORazepam (Ativan) (2 mg/mL) injection 0.5 mg 0.5 mg Intravenous Once Hortensia Tenorio MD ??? sodium chloride 0.9 % (flush) (BD PosiFlush Normal Saline 0.9) flush 5 mL 5 mL Intravenous BID Robert Bailey, DO 5 mL at 01/07/22 0926 ??? sodium chloride 0.9 % (flush) (BD PosiFlush Normal Saline 0.9) flush 5-20 mL 5-20 mL IntravenousQ1 Min PRN Robert Bailey, DO ??? lidocaine (Xylocaine) 1% (10 mg/mL) injection 3 mg 0.3 mL Subcutaneous Once PRN Robert Bailey,DO ??? enoxaparin (Lovenox) (40 mg/0.4 mL) subcutaneous injection 40 mg 40 mg Subcutaneous Nightly Robert Bailey, DO 40 mg at 01/07/22 0106 ??? tacrolimus (Prograf) 0.17 mg in dextrose 5% Non-PVC 25.17 mL infusion 0.17 mg Intravenous 2 times per day Robert Bailey, DO Stopped at 01/07/22 1309 ??? methylPREDNISolone sod succ (pf) (SOLU-Medrol) (40 mg/1 mL) injection 24 mg 24 mg Intravenous Daily Robert Bailey, DO 24 mg at 01/07/22 0927 ??? Vancomycin Level - MAR Order Reminder NOT APPLICABLE Per Pharmacy Moisés Mcgill MD METHODS: A 21 channel digitized continuous electroencephalogram with video was set up and recording started at 17:20 on 01/07/2022. Following explanation of the procedure, the 10/20 international system of electrode placement was used to determine electrode placement and disposable MRI conditional electrodes were applied using the paste/collodion method of application. In addition to EEG the patient was monitored for EKG. Video was recorded during the session. ROD DRAWER'S REPORT: Performed by: Aminata Walter At the onset of the recording the patient was awake and confused. Movement and other artifact was not significant. Comments: documented in this encounter Miscellaneous Notes Care Management Discharge - Aruna Saunders RN - 01/14/2022 10:36 AM EDT CARE MANAGEMENT FINAL DISCHARGE NOTE Chart reviewed, care reviewed with primary team and at interdisciplinary rounds. Patient is medically ready for discharge to home. Needs for Transition of Care: Plan for discharge is: Home w/o Services Outpatient Agency/Support Group Needs: Homecare agency Home Health Services: Physical Therapy, Registered Nurse Agency Referrals & Follow-up Care: [facility] [place] [address] PHONE: [phone] FAX: [phone] Transportation: family or friend will provide Wheelchair van/Ambulance? No Functional status prior to admission: Independent Home Environment: Others in the home: significant other, pet(s) (SO Chrissy and 2 cats). Current Living Arrangements: home/apartment/condo. Accessibility Concerns:3 NINFA mainly on one level. Current Functional Ability: Assistive Person and Equipment DME used at home: unable to assess DME Needed at Discharge: N/A Patient is insured through: Primary Insurance: [place] Payor: [place] / Plan: [place] / Product Type: *No Product type* / Secondary Insurance: N/A Prescription Coverage: Yes This plan was formulated with input from patient and team. All are in agreement with plan. Aruna Saunders RN, BSN, [place] Sleeve Setter Safety Stitch Pager [phone] Consult Note - Reyna Teague RN - 01/14/2022 9:15 AM EDT Clinic Ostomy Progress Note Surgery/Date: 05/28/21??Procedure(s) (LRB): @ILEOSTOMY OR JEJUNOSTOMY, NON TUBE (WRVU 17.59) (N/A) @EXPLORATORY LAPAROTOMY, REOPENING OF RECENT (WRVU 17.63) (N/A)?? Admitted from 10/15/21-11/18/21 for a MUD allo HSCT. Admitted on 01/06 as a transfer from OSH for worsening lethargy in the setting of presumed pneumonia being treated with cefapime. ?? Diagnosis: C.diff colitis. ?? Surgeon: Dr. Lety Walter. Pouching System: Removed leaking [place] 2 08/20 with Mepilex foam dressing & replaced with Coloplast #[id number] with ring & barrier strips. Added belt. Stoma Appearance: Red, moist, oval, protruding. Chai, pt's SO, told me that the stoma appeared flush with Herber's skin over the weekend. Peristomal Skin: [place] & denuded. Crusted with stoma powder & no sting skin prep twice. Also applied a layer of [place] skin prep. Ostomy Output: Thick liquid stool. Today's visit, teaching and recommendations: Per Chai Craven, and staff notes, Herber has been having a great deal of pouch leakage over the weekend. He ran out of convex supplies & staff has been doing their absolute best with the supplies they had to work with. I am not sure why the leakage occurred in the first place, but may have to do with the fact the Chai noted the stoma was flush with Herber's skin during the weekend, instead of protruding. Again, I am not sure why this occurred, but I do still think the convex pouch he has been using remains appropriate for him. I treated his peristomal skin by first applying a [place] soak for 5-10 minutes. I explained that this was an astringent which would hopefully help to dry out Herber's skin. He has some additional solution to take home & use. I then applied stoma powder & no sting skin prep twice & added a layer of [place] skin prep which will hopefully form a nice crust which will be easier for the pouch to adhere to. I am not planning to send Herber home with any of this as I think his skin will be much improved if we can keep a pouch in place even for 24 hours. I did add a belt to the convex pouch; Herber had this with him, but I'm not sure if he was using it. Provided Herber with 3 spare drainable pouches, 3 spare adapt rings, spare barrier strips, & spareDomeboro solution to take home with him. Reviewed with him & Chai that I thought it would be important for him to wear the belt for at least a few hours after applying a new pouch. They deny questions at this time, but I enc them to call if any arise after discharge. Reyna Teague, PHILN, RN, CWOCN 01/14/2022 Enterostomal Therapy Team Pager #[phone] Consult Note - Silvia Cook MD - 01/14/2022 9:13 AM EDT Neurology Consult Note Patient name:Herber Iverson Jr. Date of :1960 Admit date: 01/06/2022 Attending: Kota Zavala MD Primary Team: Hematology CC: Encephalopathy Patient ID: See Neurology Note 01/07/2022 for full HPI Herber Iverson Jr. is a 61 y.o. 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 Neurology is consulted for ongoing encephalopathy. Interval Events: - Mentation cleared -No complaints today Past Medical History: Past Medical History: Diagnosis Date ??? AML (acute myeloblastic leukemia) 04/2021 ??? BPH (benign prostatic hyperplasia) ??? GERD (gastroesophageal reflux disease) ??? Paroxysmal atrial fibrillation ??? 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 Medications: Colostomy Belt, Ostomy Supplies, acyclovir, aspirin, dronabinoL, flecainide, fluconazole, lidocaine-prilocaine, loperamide, magnesium oxide, metoprolol tartrate, ondansetron, pantoprazole EC, predniSONE, rosuvastatin, tacrolimus, tamsulosin, and vancomycin Allergies: Allergies Allergen Reactions ??? Other [Unclassified Drug] Other (See Comments) Artificial Sweetners-lightheadedness, dizziness ??? Bactoshield Chg [Chlorhexidine Gluconate] Itching and Rash CHG wipes reported he gets a rash and is itchy. Family history: Family History Problem Relation Age of Onset ??? 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 Lives with girlfriend in [place], [place]. . No biologic children. Objective: Constitutional: appears stated age, in no acute distress Neuro: ?? MS: Alert and oriented to self, location, and date. Speech is spontaneous, smooth and articulate without dysarthria. Memory grossly intact to the situation and disease history. Follows simple and complex commands. Repeats serial #'s without error.Able to state months of the year backwards ?? CN: ?? PERRL, EOMI, visual jacobs full ?? Facial sensation intact throughout ?? No facial asymmetry, movement intact ?? Hearing intact to finger rub ?? Palate elevates symmetrically, tongue protrudes midline ?? SCM and trap strength intact. ?? Motor: Normal bulk and tone. No clonus. No pronator drift. ?? UE: BUE action tremor ?? Arm abduction at shoulder: 5/5 R, 5/5 L ?? Elbow extension: 5/5 R, 5/5 L ?? Elbow flexion: 5/5 R, 5/5 L ?? [place] Machine Tender: 5/5 R, 5/5 L ?? LE: ?? Hip flexion: 5/5 R, 5/5 L ?? Knee extension: 5/5 R, 5/5 L ?? Knee flexion: 5/5 R, 5/5 L ?? Foot dorsiflexion: 5/5 R, 5/5 L ?? Foot plantar flexion: 5/5 R, 5/5 L ?? Sensation: Reports baseline numbness of BLE ?? UEs: Intact to light touch throughout. ?? LEs: Intact to light touch throughout. ?? Reflexes: ?? UE DTRs: ?? Triceps 2+R, 2+L ?? Biceps 2+R, 2+L ?? Brachioradialis 2+R, 2+L. ?? LE DTRs: ?? Patellar 2+R, 2+L ?? Achilles: 2+R, 2+L ?? Downgoing toes bilaterally ?? Coordination: Finger to nose and heel petty without dysmetria/ataxia. ?? Gait and Sation: Deferred Labs: Recent Results (from the past 24 hour(s)) Tacrolimus level Result Value Ref Range Tacrolimus Lvl 3.8 ng/mL Basic Metabolic Panel (non-fasting) Result Value Ref Range Glucose Lvl 109 65 - 199 mg/dL BUN 38 (H) 10 - 20 mg/dL Creatinine 1.31 0.80 - 1.50 mg/dL Sodium 134 (L) 135 - 145 mmol/L Potassium 5.0 3.5 - 5.0 mmol/L Chloride 102 98 - 107 mmol/L CO2 21 (L) 22 - 31 mmol/L Anion Gap 11 5 - 15 mmol/L Calcium 8.3 (L) 8.5 - 10.5 mg/dL Estimated GFR 58 (L) >=60 mL/min/1.73 m?? Magnesium Result Value Ref Range Magnesium 0.77 0.69 - 1.07 mmol/L Phosphorus Result Value Ref Range Phosphorus 3.6 2.5 - 4.5 mg/dL Hemogram Result Value Ref Range WBC 5.4 4.0 - 9.5 x10(3)/mcL RBC 2.29 (L) 4.58 - 5.54 x10(6)/mcL Hemoglobin 7.8 (L) 13.7 - 16.5 g/dL Hematocrit 22.6 (L) 40.5 - 48.5 % MCV 98.7 (H) 82.9 - 93.1 fL MCH 34.1 (H) 27.5 - 32.1 pg MCHC 34.5 32.0 - 35.7 g/dL Platelets 53 (L) 145 - 357 x10(3)/mcL RDWSD 54.4 (H) 36.0 - 45.0 fL RDWCV 15.3 (H) 11.4 - 13.8 % MPV 11.6 7.6 - 12.9 fL nRBC % Auto 0.9 % nRBC Abs Auto 0.050 (H) 0.000 - 0.000 x10(3)/mcL Differential, Automated Result Value Ref Range Neutrophils % 79.6 % Neutr Abs (ANC) 4.29 1.70 - 6.10 x10(3)/mcL Lymphocytes % 16.0 % Lymphocytes Abs 0.9 0.9 - 3.2 x10(3)/mcL Monocytes % 2.0 % Monocyte Abs 0.1 (L) 0.3 - 0.9 x10(3)/mcL Eosinophils % 1.1 % Eosinophils Abs 0.1 0.0 - 0.4 x10(3)/mcL Basophils % 0.0 % Basophils Abs 0.0 0.0 - 0.1 x10(3)/mcL Immature Gran % 1.30 % Zara Gran Abs 0.07 (H) 0.00 - 0.04 x10(3)/mcL Diagnostic Tests and Imaging: EEG Report 01/07/2022 This EEG is abnormal due to: 1. Occasional generalized periodic discharges at 1-1.5 Hz coming in isolation or as very brief 2-3 second runs. This discharges often have a triphasic morphology and anterior to posterior lag 2. Continuous generalized slowing of the background in the theta range with a PDR of 6-7Hzz MRI Brain wwo 01/07/2022 IMPRESSION 1. No new intra-axial lesion or abnormal enhancement. ?? 2. , As curvilinear site of blood products in the left frontal lobe potentially representing small area of hemorrhage or thrombosed developmental venous anomaly ?? CT Head wo 01/07/2022 FINDINGS: Vann-white interface appears well differentiated. Lateral ventricles are symmetric. Basal cisterns are patent. No global mass effect, midline shift, herniation, large space-occupying processappreciated. No acuteintracranial hemorrhage. ?? Orbits: Normal IMPRESSION No acute intracranial abnormality. Assessment: Herber Iverson Jr. is a 61 y.o. 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 Neurology is consulted for ongoing encephalopathy. Herber's mental status has now cleared and he is back to his baseline. It is likely that he had some viral etiology that caused his altered mentation and abnormal LP. Neurology will sign off and feel free to message with questions. ?? []??? Consult service will continue to follow patient. [x]? Recommendations are above, please page [phone] if further consultation is required. ?? Associated attestation - Kota Zavala MD - 01/14/2022 11:40 AM EDT I saw and evaluated the patient with Dr. Cook. I have reviewed the resident's history during the visit and agree with the details as written. My neurological exam confirms the residents findings. Theassessment and plan were formulated in discussion with me at the time of the visit and I agree with them as documented. Kota Zavala MD 01/14/2022 Manufacturing Associate General Neurology and Clinical Neurophysiology [facility] Department of Neurology Consult Note - Serenity Frey RN - 01/10/2022 3:52 PM EDT prime broker note: Patient well know to ostomy team. He has an ileostomy. He was more alert and oriented today than previously this week. He had some issues with leakage overnight with his pouching systemand staff had him in a two piece wafer and urostomy pouch which trapped the stool and was not allowing it to drain. So we switched him back to his normal pouch #[id number] with ring and elastic barrier strips since his partner Chai brought in his home supplies. His stoma is slightly oval, budded, and output is thick like apple-sauce today. He is eating better. His peristomal skin had mild denuding which I applied stoma powder and skin prep to. We will check/change him on Thursday. Consult Note - Felicita Shore - 01/10/2022 10:52 AM EDTSummary: Medical Student Consult Note Neurology Consult Note -01/10/22 Patient name:Herber Iverson Jr. Date of :1960 Admit date: 01/06/2022 Attending: Lexx Zavala CC: Encephalopathy ID: Herber Iverson Jr. is a 61 y.o. 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 Neurology was consulted for ongoing encephalopathy. See full Neurology HPI 01/07/22: Herber's girlfriend Chai is present in the room to assist with history. She reports that he was takento the ED 9 days ago with dehydration manifesting as confusion. He was found to have STACIE on CKD and tacrolimus toxicity. With IVF he is reported to have improvement and disposition planning was ongoingfor discharge when he developed fever of 38.7 on 01/04. CXR showed evidence of PNA for which he was started on cefepime. ?? The following day he is reported to have been less alert and not oriented. A new nonspecific rash was noted and vancomycin was added. He was transferred to [facility] Hematology overnight for further workup.On arrival Cefepime was stopped and Zosyn was started for HAP. Interval Events: - ID consulted - Ceftriaxone, ampicillin, and vancomycin were discontinued yesterday, per ID recommendations. - He remains on acyclovir, fluconazole, and methylprednisone given his immunocompromised state - Herber reports he slept well overnight, has been eating regular diet, good urine and ostomy output. - Started on home Flomax d/t urinary frequency and urgency. - He seems to have returned to baseline, per girlfriend Chai - Denies any new neurological symptoms. No headaches, no weakness, no loss of sensation, no vision changes since yesterday. Past Medical History: Past Medical History: Diagnosis Date ??? AML (acute myeloblastic leukemia) 04/2021 ??? BPH (benign prostatic hyperplasia) ??? GERD (gastroesophageal reflux disease) ??? Paroxysmal atrial fibrillation ??? 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 Medications: Colostomy Belt, Ostomy Supplies, acyclovir, aspirin, dronabinoL, flecainide, fluconazole, lidocaine-prilocaine, loperamide, magnesium oxide, metoprolol tartrate, ondansetron, pantoprazole EC, predniSONE, rosuvastatin, tacrolimus, tamsulosin, and vancomycin Allergies: Allergies Allergen Reactions ??? Other [Unclassified Drug] Other (See Comments) Artificial Sweetners-lightheadedness, dizziness ??? Bactoshield Chg [Chlorhexidine Gluconate] Itching and Rash CHG wipes reported he gets a rash and is itchy. Family history: Family History Problem Relation Age of Onset ??? 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 Lives with girlfriend in [place], [place]. . No biologic children. Physical Exam: Vitals: Temp: [36.5 ??C (97.7 ??F)-36.7 ??C (98.1 ??F)] Heart Rate: [88-107] Resp: [18-22] BP: (133-155)/(92-102) SpO2: [96 %-98 %] Heart Rate from SpO2: [75 bpm-100 bpm] Neuro: MS: Awake, alert, oriented to person, place, month, date and year. Sitting up in the chair today after PT session. 5-6 digit span No dysarthria, appropriately conversational and cooperative with neuro exam. CN: Pupils 4mm ERRL, EOMI, visual jacobs full to confrontation, denies blurring or double vision, nonystagmus. Facial sensation intact to light touch No facial asymmetry Hearing intact to voice Palate elevates symmetrically, tongue protrudes midline SCM and trap strength intact Motor: Normal bulk and tone. No pronator drift. Mild action tremor noted. Raises arms and legs of bed without difficulty. Follows two-step commands, able to touch R finger to L ear. Sensation: Grossly intact to light touch. Reports ongoing tingly feet b/l Reflexes: DTRs 2 R, 2 L Biceps 2 R, 2 L Brachioradialis 2 R, 2 L Patellar 2 R, 2 L Achilles tendon Babinski - R equivocal, L equivocal Coordination: Finger to nose intact, no dysmetria. Some fine motor difficulties Gait: Deferred. Labs: Recent Results (from the past 24 hour(s)) COVID-19 PCR Specimen: Nasopharyngeal Swab Symptoms->Surveillance Result Value Ref Range SARS-CoV-2 RNA Not Detected Not Detected SARS-Cov-2 RNA Source JUDICIAL ASSISTANT Swab Basic Metabolic Panel (non-fasting) Result Value Ref Range Glucose Lvl 103 65 - 199 mg/dL BUN 22 (H) 10 - 20 mg/dL Creatinine 0.89 0.80 - 1.50 mg/dL Sodium 136 135 - 145 mmol/L Potassium 3.9 3.5 - 5.0 mmol/L Chloride 105 98 - 107 mmol/L CO2 20 (L) 22 - 31 mmol/L Anion Gap 11 5 - 15 mmol/L Calcium 8.1 (L) 8.5 - 10.5 mg/dL Estimated GFR 92 >=60 mL/min/1.73 m?? Magnesium Result Value Ref Range Magnesium 0.56 (L) 0.69 - 1.07 mmol/L Phosphorus Result Value Ref Range Phosphorus 1.8 (L) 2.5 - 4.5 mg/dL Hemogram Result Value Ref Range WBC 5.7 4.0 - 9.5 x10(3)/mcL RBC 2.15 (L) 4.58 - 5.54 x10(6)/mcL Hemoglobin 7.4 (L) 13.7 - 16.5 g/dL Hematocrit 21.2 (L) 40.5 - 48.5 % MCV 98.6 (H) 82.9 - 93.1 fL MCH 34.4 (H) 27.5 - 32.1 pg MCHC 34.9 32.0 - 35.7 g/dL Platelets 43 (L) 145 - 357 x10(3)/mcL RDWSD 56.2 (H) 36.0 - 45.0 fL RDWCV 15.5 (H) 11.4 - 13.8 % MPV 12.5 7.6 - 12.9 fL nRBC % Auto 0.0 % nRBC Abs Auto 0.000 0.000 - 0.000 x10(3)/mcL Differential, Automated Result Value Ref Range Neutrophils % 83.5 % Neutr Abs (ANC) 4.75 1.70 - 6.10 x10(3)/mcL Lymphocytes % 9.8 % Lymphocytes Abs 0.6 (L) 0.9 - 3.2 x10(3)/mcL Monocytes % 4.2 % Monocyte Abs 0.2 (L) 0.3 - 0.9 x10(3)/mcL Eosinophils % 1.8 % Eosinophils Abs 0.1 0.0 - 0.4 x10(3)/mcL Basophils % 0.0 % Basophils Abs 0.0 0.0 - 0.1 x10(3)/mcL Immature Gran % 0.70 % Zara Gran Abs 0.04 0.00 - 0.04 x10(3)/mcL Diagnostic Tests and Imaging: MRI Brain wwo Contrast 01/07/22: IMPRESSION 1. No new intra-axial lesion or abnormal enhancement. ?? 2. As curvilinear site of blood products in the left frontal lobe potentially representing small area of hemorrhage or thrombosed developmental venous anomaly CT head wo Contrast 01/07/22: FINDINGS: Vann-white interface appears well differentiated. Lateral ventricles are symmetric. Basal cisterns are patent. No global mass effect, midline shift, herniation, large space-occupying processappreciated. No acuteintracranial abnormality. IMPRESSION No acute intracranial abnormality. EEG Report: Interpretation This EEG is abnormal due to: 1. Occasional generalized periodic discharges at 1-1.5 Hz coming in isolation or as very brief 2-3 second runs. This discharges often have a triphasic morphology and anterior to posterior lag 2. Continuous generalized slowing of the background in the theta range with a PDR of 6-7Hzz ?? CLINICAL CORRELATION: This abnormal EEG is suggestive of a diffuse mild to moderate nonspecific cerebral dysfunction. No seizures or epileptiform discharges seen thus far. ?? Assessment: Herber Iverson Jr. is a 61 y.o. 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 Neurology was consulted for ongoing encephalopathy. Herber's mental status seems to have returned to baseline, per his girlfriend Chai. He is alert and oriented to person, place, date, and time. Today he is able to recite 6 digit spans smoothly, without difficulty and he is appropriately conversational. He continues to have a mild action tremor in bilateral upper extremities and parasthenia of both legs, but this seems to be baseline and his hematology/oncology team believes both symptoms are likely in the setting of his chemotherapy regimen. His encephalopathy seems to be resolved but etiology remains unclear. It could have been d/t cefapime toxicity with metabolic disturbance given his improvement since discontinuing the medication, as well as the duration of recovery. However, his LP reflects a meningoencephalitis with a high total protein and lymphocytic predominance of nucleated cells. Corrections for a traumatic LP do not explain the nucleated CSF CT of 83 or theelevated protein of 346. 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 CSF was negative for common causes including enterovirus, HSV 1&2, and cryptococcus, however other uncommon viral causes could be considered with a metagenomic panel. This may have been a monophasic course, given Herber's improvement, but it also might be useful to understand the etiology of the 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 COORDINATOR inflammationgiven his immunosuppression and chemotherapy treatment. Overall Herber's mental status is certainly improved. We will continue to monitor through his stay on the inpatient unit. Plan: - Continue acyclovir, fluconazole and methyl prednisone - Consider metagenomic testing of CSF for further evaluation of meningoencephalitis etiology. Felicita Shore, PAULIEV Consult Note - Frances Ward, BOILER WATER TESTER - 01/10/2022 6:56 AM EDT Neurology Consult Note Patient name:Herber Iverson Jr. Date of :1960 Admit date: 01/06/2022 Attending: Kota Zavala MD Primary Team: Hematology CC: Encephalopathy HPI: See Neurology Note 01/07/2022 for full HPI Herber Iverson Jr. is a 61 y.o. 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 Neurology is consulted for ongoing encephalopathy. Per girlfriend Chai, Herber was taken to the ED 9 days ago with dehydration manifesting as confusion.He was found to have STACIE on CKD and tacrolimus toxicity. He was improving with IVF and anticipated discharge when he developed a fever of 38.7 on 01/04. CXR showed evidence of PNA for which he was striated on cefepime. ?? The following day he is reported to have been less alert and not oriented. A new nonspecific rash was noted and vancomycin was added. He was transferred to [facility] Hematology overnight for further workup.On arrival Cefepime was stopped and Zosyn was started for HAP. Interval Events: - Updates: cont. fluconazole, acyclovir - Vitals: SBP 130s-150s, HR 90s, normothermic Past Medical History: Past Medical History: Diagnosis Date ??? AML (acute myeloblastic leukemia) 04/2021 ??? BPH (benign prostatic hyperplasia) ??? GERD (gastroesophageal reflux disease) ??? Paroxysmal atrial fibrillation ??? 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 Medications: Colostomy Belt, Ostomy Supplies, acyclovir, aspirin, dronabinoL, flecainide, fluconazole, lidocaine-prilocaine, loperamide, magnesium oxide, metoprolol tartrate, ondansetron, pantoprazole EC, predniSONE, rosuvastatin, tacrolimus, tamsulosin, and vancomycin Allergies: Allergies Allergen Reactions ??? Other [Unclassified Drug] Other (See Comments) Artificial Sweetners-lightheadedness, dizziness ??? Bactoshield Chg [Chlorhexidine Gluconate] Itching and Rash CHG wipes reported he gets a rash and is itchy. Family history: Family History Problem Relation Age of Onset ??? 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 Lives with girlfriend in [place], [place]. . No biologic children. Objective: Constitutional: appears stated age, in no acute distress HEENT: Head atraumatic, normocephalic. Sclera non-icteric. CV: S1, S2, no murmurs, rubs or gallops. Radial pulses and posterior tibial pulses 2+ with no edema Resp: Chest rise and fall symmetric, all jacobs clear with no adventitious sounds Integumentary: Improving diffuse rash of LUE Neuro: ?? MS: Alert and oriented to self, location, and date. Speech is spontaneous, smooth and articulate without dysarthria. Memory grossly intact to the situation and disease history. Follows simple and complex commands. Repeats serial #'s without error. Does not feel confused and does not seem to have recollection of AMS. ?? CN: ?? PERRL, EOMI, visual jacobs full ?? Facial sensation intact throughout ?? No facial asymmetry, movement intact ?? Hearing intact to finger rub ?? Palate elevates symmetrically, tongue protrudes midline ?? SCM and trap strength intact. ?? Motor: Normal bulk and tone. No clonus. No pronator drift. ?? UE: BUE action tremor ?? Arm abduction at shoulder: 5/5 R, 5/5 L ?? Elbow extension: 5/5 R, 5/5 L ?? Elbow flexion: 5/5 R, 5/5 L ?? Glassine Machine Tender: 5/5 R, 5/5 L ?? LE: ?? Hip flexion: 5/5 R, 5/5 L ?? Knee extension: 5/5 R, 5/5 L ?? Knee flexion: 5/5 R, 5/5 L ?? Foot dorsiflexion: 5/5 R, 5/5 L ?? Foot plantar flexion: 5/5 R, 5/5 L ?? Sensation: Reports baseline numbness of BLE ?? UEs: Intact to light touch throughout. ?? LEs: Intact to light touch throughout. ?? Reflexes: ?? UE DTRs: ?? Triceps 2+R, 2+L ?? Biceps 2+R, 2+L ?? Brachioradialis 2+R, 2+L. ?? LE DTRs: ?? Patellar 2+R, 2+L ?? Achilles: 2+R, 2+L ?? Downgoing toes bilaterally ?? Coordination: Finger to nose and heel petty without dysmetria/ataxia. ?? Gait and Sation: Deferred Labs: Recent Results (from the past 24 hour(s)) Tacrolimus level Result Value Ref Range Tacrolimus Lvl 2.8 ng/mL COVID-19 PCR Specimen: Nasopharyngeal Swab Symptoms->Surveillance Result Value Ref Range SARS-CoV-2 RNA Not Detected Not Detected SARS-Cov-2 RNA Source JUDICIAL ASSISTANT Swab Basic Metabolic Panel (non-fasting) Result Value Ref Range Glucose Lvl 103 65 - 199 mg/dL BUN 22 (H) 10 - 20 mg/dL Creatinine 0.89 0.80 - 1.50 mg/dL Sodium 136 135 - 145 mmol/L Potassium 3.9 3.5 - 5.0 mmol/L Chloride 105 98 - 107 mmol/L CO2 20 (L) 22 - 31 mmol/L Anion Gap 11 5 - 15 mmol/L Calcium 8.1 (L) 8.5 - 10.5 mg/dL Estimated GFR 92 >=60 mL/min/1.73 m?? Magnesium Result Value Ref Range Magnesium 0.56 (L) 0.69 - 1.07 mmol/L Phosphorus Result Value Ref Range Phosphorus 1.8 (L) 2.5 - 4.5 mg/dL Hemogram Result Value Ref Range WBC 5.7 4.0 - 9.5 x10(3)/mcL RBC 2.15 (L) 4.58 - 5.54 x10(6)/mcL Hemoglobin 7.4 (L) 13.7 - 16.5 g/dL Hematocrit 21.2 (L) 40.5 - 48.5 % MCV 98.6 (H) 82.9 - 93.1 fL MCH 34.4 (H) 27.5 - 32.1 pg MCHC 34.9 32.0 - 35.7 g/dL Platelets 43 (L) 145 - 357 x10(3)/mcL RDWSD 56.2 (H) 36.0 - 45.0 fL RDWCV 15.5 (H) 11.4 - 13.8 % MPV 12.5 7.6 - 12.9 fL nRBC % Auto 0.0 % nRBC Abs Auto 0.000 0.000 - 0.000 x10(3)/mcL Differential, Automated Result Value Ref Range Neutrophils % 83.5 % Neutr Abs (ANC) 4.75 1.70 - 6.10 x10(3)/mcL Lymphocytes % 9.8 % Lymphocytes Abs 0.6 (L) 0.9 - 3.2 x10(3)/mcL Monocytes % 4.2 % Monocyte Abs 0.2 (L) 0.3 - 0.9 x10(3)/mcL Eosinophils % 1.8 % Eosinophils Abs 0.1 0.0 - 0.4 x10(3)/mcL Basophils % 0.0 % Basophils Abs 0.0 0.0 - 0.1 x10(3)/mcL Immature Gran % 0.70 % Zara Gran Abs 0.04 0.00 - 0.04 x10(3)/mcL Diagnostic Tests and Imaging: EEG Report 01/07/2022 This EEG is abnormal due to: 1. Occasional generalized periodic discharges at 1-1.5 Hz coming in isolation or as very brief 2-3 second runs. This discharges often have a triphasic morphology and anterior to posterior lag 2. Continuous generalized slowing of the background in the theta range with a PDR of 6-7Hzz MRI Brain wwo 01/07/2022 IMPRESSION 1. No new intra-axial lesion or abnormal enhancement. ?? 2. , As curvilinear site of blood products in the left frontal lobe potentially representing small area of hemorrhage or thrombosed developmental venous anomaly ?? CT Head wo 01/07/2022 FINDINGS: Vann-white interface appears well differentiated. Lateral ventricles are symmetric. Basal cisterns are patent. No global mass effect, midline shift, herniation, large space-occupying processappreciated. No acuteintracranial hemorrhage. ?? Orbits: Normal IMPRESSION No acute intracranial abnormality. Assessment: Herber Iverson Jr. is a 61 y.o. 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 Neurology is consulted for ongoing encephalopathy. Herber's mental status and mentation remain stable today. He is alert, clear and feeling well. Continues to experience action tremor of BUE and parasthenia of BLE, which has been baseline and thought to be due to tacrolimus. Otherwise, exam is non-focal with and MRI without cause for AMS. LP obtained for AMS and instance of fever in the setting of immunocompromised state. 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 Negative HSV cryptococcus & enterovirus. Improvement could indicated monophasic course however could consider metagenomic testing to determine etiology. ?? # Recommendations - Abx/antiviral per ID and primary team - Consider metagenomic testing ?? [x]??? Consult service will continue to follow patient. []? Recommendations are above, please page [phone] if further consultation is required. ?? Frances Ward APRN Neurology JESSICA Fellow Neurology Consult #[id number] Associated attestation - Kota Zavala MD - 01/14/2022 11:00 AM EDT Neurology Attending Attestation This patient was seen in conjunction with Frances Ward APRN as part of a shared visit. I have independently interviewed and examined the patient and reviewed the pertinent diagnostic information. I agree with the principal findings documented above. The assessment and plan were formulated in discussionwith me. Pertinent History: Pertinent Exam: Major issues addressed: Inflammatory LP w fever and confusion suggests encephalitis Luckily seems monophasic, possibly viral? Plan: No further treatment or workup IF worsens, will have to expand work-up to atypical causes Kota Zavala MD Manufacturing Associate of Neurology Consult Note - Stefany Dodge DO - 01/09/2022 11:51 AM EDT INFECTIOUS DISEASES CONSULT NOTE Patient ID: Herber Iverson Jr. Room: [facility] Reason for Consult: Antibiotic management Concern for viral 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 COORDINATOR infection Antimicrobials: Ampicillin Ceftriaxone Vancyomcin Acyclovir Fluconazole Consulting Service: Hematology/Oncology Consulting Attending: Parviz Modi MD Admission Date: 01/06/2022 History of Present Illness: Mr. Iverson is a 61 year-old male with history of relapse AML s/p HSCT on 10/22/21, fulminant C.diff colitis s/p colectomy in 05/2021, frontal stroke who initially presented to OSH on 12/29 with delirium secondary to dehydration. He was found to have STACIE, admitted given IV hydration. It was attributed to decreased PO intake since post HSCT that is aggravated by hx of oral thrush. His initial creatinine 3.1, GFR 20 (previously had normal Cr). Initial work up including CTH, CTAP, CXR, UA, blood cultures were negative. His mentation improved with improvement creatinine. He started to advanced diet in the succeeding days per chart review. It was felt that there was no indication to transfer to [facility] since he was improving. However, around ~01/03- 01/04 he was reported to spike fevers 38.7 associated with body malaise. Bloodcultures were taken on 01/04 and 01/05 (which both were negative as of 01/09 after I called [facility]). Notable labs included WBC 8.4k with ANC 0.7, Platelets 57, creatinine 1.8, GFR 20. CXR showed pulmonary infiltrates and he was started cefepime 2g IV Q8 per documentation. The next day 01/05, he was noted to be less alert and not oriented. He was noted to have low grade temp 37.9, and was not taking any PO. Antibiotics was broadened to vancomycin. Creatinine remains 1.8 at that time. It was decided to finally transfer him to [facility] for further management. In [facility], MS was worsening and cefepime was stopped on 01/06 and was switched to Zosyn. Work up has been unrevealing and neurology was consulted. EEG showed non specific encephalopathy. Brain imaging didnot suggest any acute process. LP was traumatic and cultures has been negative so far. Viral studieshas been negative as well. He was empirically started on antibiotics and antivirals for possible CNSinfection. Tacrolimus level is also sent and pending. MRSA came back negative. His mentation continued to improved. Our team is being consulted due to concern for a viral 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 COORDINATOR infection. Patient was seen and examined at bedside. Most of the history was taken from the girlfriend Chrissy since he does not remember what happened from [facility] until transfer here to [facility]. He started to be more awake Thursday (01/07), and was more alert yesterday (01/08). He is more awake today, talking and able to hold conversation. Per girlfriend, today he is almost back to his baseline mental status. Appetite has improved. He never had any URI sx, headache, neck pain, cough, shortness of breath, extremity weakness, nausea/vomiting or blurry vision. Review of Systems: Pertinent positives and negatives noted in HPI. 14 point ROS otherwise negative Past Medical History: Past Medical History: Diagnosis Date ??? AML (acute myeloblastic leukemia) 04/2021 ??? BPH (benign prostatic hyperplasia) ??? GERD (gastroesophageal reflux disease) ??? Paroxysmal atrial fibrillation ??? 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 Past Surgical History: Past Surgical History: Procedure Laterality Date ??? ACHILLES TENDON SURGERY ??? IR LINE OR TUBE REMOVAL IN RECOVERY ROOM 11/05/2021 IR Line or Tube Removal in Recovery Room 11/05/2021 Kelli Diaz PA [facility] INTERVENTIONL RAD ??? IR MEDIPORT PLACEMENT 10/04/2021 IR Mediport Placement 10/04/2021 Kelli Diaz PA [facility] INTERVENTIONL RAD ??? IR TUNNELED CENTRAL VENOUS ACCESS NON-DIALYSIS 10/15/2021 IR Tunneled Central Venous Access Non-Dialysis 10/15/2021 Kelli Diaz PA [facility] INTERVENTIONL RAD ? ? PRO DIAGNOSTIC BONE MARROW BIOPSIES & ASPIRATIONS Right 09/12/2021 ([facility]) BONE MARROW BIOPSY AND ASPIRATION; DIAGNOSTIC performed by Parviz Modi MD [facility] ? ? PRO DIAGNOSTIC BONE MARROW BIOPSIES & ASPIRATIONS N/A 10/07/2021 ([facility]) BONE MARROW BIOPSY AND ASPIRATION; DIAGNOSTIC performed by Parviz Modi MD [facility] ? ? PRO DIAGNOSTIC BONE MARROW BIOPSIES & ASPIRATIONS Left 12[facility]23[facility]2021 [facility] BONE MARROW BIOPSY AND ASPIRATION; DIAGNOSTIC performed by Parviz Modi MD [facility] ??? PRO EXPLORATORY OF ABDOMEN Midline 05/26/2021 @EXPLORATORY LAPAROTOMY, WITH/WITHOUT BIOPSY(S) (WRVU 12.54) performed by Mona Hernandes MD [facility] MAIN OR ??? PRO ILEOSTOMY/JEJUNOSTOMY, NONTUBE N/A 05/28/2021 @ILEOSTOMY OR JEJUNOSTOMY, NON TUBE (WRVU 17.59) performed by Lety Walter MD at [facility] MAIN OR ??? PRO REOPEN RECENT ABD EXPLORATORY N/A 05/28/2021 @EXPLORATORY LAPAROTOMY, REOPENING OF RECENT (WRVU 17.63) performed by Lety Walter MD at [facility] MAIN OR ??? TONSILLECTOMY AND ADENOIDECTOMY ??? XR FLUORO GUIDED LUMBAR PUNCTURE N/A 07/12/2021 XR Fluoro Guided Lumbar Puncture 07/12/2021 Frances Green MD [facility] RAD XRAY ??? XR FLUORO GUIDED LUMBAR PUNCTURE N/A 01/08/2022 XR Fluoro Guided Lumbar Puncture 01/08/2022 Yolette Solano APRN [facility] RAD XRAY ??? XR FLUORO GUIDED LUMBAR PUNCTURE FOR IT CHEMOTHERAPY N/A 07/16/2021 XR Fluoro Guided Lumbar Puncture For IT Chemotherapy 07/16/2021 Nas Patino MD [facility] RAD XRAY ??? XR FLUORO GUIDED LUMBAR PUNCTURE FOR IT CHEMOTHERAPY N/A 07/19/2021 XR Fluoro Guided Lumbar Puncture For IT Chemotherapy 07/19/2021 Shae Alford MD [facility] RAD XRAY ??? XR FLUORO GUIDED LUMBAR PUNCTURE FOR IT CHEMOTHERAPY N/A 07/25/2021 XR Fluoro Guided Lumbar Puncture For IT Chemotherapy 07/25/2021 Nas Patino MD [facility] RAD XRAY ??? XR FLUORO GUIDED LUMBAR PUNCTURE FOR IT CHEMOTHERAPY N/A 07/29/2021 XR Fluoro Guided Lumbar Puncture For IT Chemotherapy 07/29/2021 [facility] RAD XRAY ??? XR FLUORO GUIDED LUMBAR PUNCTURE FOR IT CHEMOTHERAPY N/A 08/05/2021 XR Fluoro Guided Lumbar Puncture For IT Chemotherapy 08/05/2021 Nas Patino MD [facility] RAD XRAY ??? XR FLUORO GUIDED LUMBAR PUNCTURE FOR IT CHEMOTHERAPY N/A 08/01/2021 XR Fluoro Guided Lumbar Puncture For IT Chemotherapy 08/01/2021 Yolette Solano, [employer] [facility] RAD XRAY ??? XR FLUORO GUIDED LUMBAR PUNCTURE FOR IT CHEMOTHERAPY N/A 07/22/2021 XR Fluoro Guided Lumbar Puncture For IT Chemotherapy 07/22/2021 [facility] RAD XRAY ??? XR FLUORO GUIDED LUMBAR PUNCTURE FOR IT CHEMOTHERAPY N/A 08/12/2021 XR Fluoro Guided Lumbar Puncture For IT Chemotherapy 08/12/2021 Jona Lowry MD [facility] RAD XRAY ??? XR FLUORO GUIDED LUMBAR PUNCTURE FOR IT CHEMOTHERAPY N/A 08/26/2021 XR Fluoro Guided Lumbar Puncture For IT Chemotherapy 08/26/2021 Yolette Solano, [facility] RAD XRAY ??? XR FLUORO GUIDED LUMBAR PUNCTURE FOR IT CHEMOTHERAPY N/A 09/05/2021 XR Fluoro Guided Lumbar Puncture For IT Chemotherapy 09/05/2021 Yolette Solano, [facility] RAD XRAY ??? XR FLUORO GUIDED LUMBAR PUNCTURE FOR IT CHEMOTHERAPY N/A 09/09/2021 XR Fluoro Guided Lumbar Puncture For IT Chemotherapy 09/09/2021 Yolette Solano, [facility] RAD XRAY ??? XR FLUORO GUIDED LUMBAR PUNCTURE FOR IT CHEMOTHERAPY N/A 09/27/2021 XR Fluoro Guided Lumbar Puncture For IT Chemotherapy 09/27/2021 Yolette Solano, [facility] RAD XRAY Medications : Reviewed. Immunizations: Immunization History Administered Date(s) Administered ??? Pneumococcal Polyvalent 23 02/08/2004 ??? Td, adult 08/17/1998 Allergies: Allergies Allergen Reactions ??? Other [Unclassified Drug] Other (See Comments) Artificial Sweetners-lightheadedness, dizziness ??? Bactoshield Chg [Chlorhexidine Gluconate] Itching and Rash CHG wipes reported he gets a rash and is itchy. Family History: Family History Problem Relation Age of Onset ??? Lung Cancer Father Social History: Lives with in [place], [place] Has 2 cats No recent travel Physical Exam: BP (!) 133/96 (BP Location (NBP): Left arm, Patient Position: Lying) Pulse (!) 105 Temp 36.7 ??C(98 ??F) (Oral) Resp 18 Ht 176 cm (5' 9.29) Wt 82.4 kg (181 lb 9.6 oz) SpO2 97% BMI 26.59kg/m?? General: awake, alert, oriented x 3, non-toxic Eyes: no icterus, no pallor HENT:NC/AT, no nasal secretions Neck: no LAD Cardiovascular: RRR, no murmur Pulmonary: +R chest port appears intact, CTA bilateral Abdomen: BS + non distended, soft, non tender; +ostomy with dark yellowish output; +external cath Ext: no pedal edema Skin: +macular rash on LUE Neuro: alert and oriented to person place time and situation. No facial droop. No dysarthia Psych: normal affect Lines/tubes/output: PIV - RUE Laboratory: Labs reviewed in chart and significant for: CBC: Recent Labs 01/09/22 0025 01/08/22 0135 01/07/22 0524 WBC 8.5 8.5 8.9 HGB 7.7* 7.6* 7.7* PLATELET 59* 49* 52* Chemistry: Recent Labs 01/09/22 0025 01/08/22 0135 01/07/22 1340 NA 138 140 139 K 3.4* 3.8 3.8 CL 107 109* 108* CO2 19* 17* 18* BUN 26* 23* 20 CREATININE 0.97 1.14 1.14 GLUCOSE 127 112 122 Recent Labs 01/09/22 0025 01/08/22 0135 01/07/22 1340 01/07/22 0524 CALCIUM 7.9* 8.1* 8.6 8.7 MAGNESIUM 0.70 0.97 0.67* 0.79 PHOS 1.8* 3.1 -- 2.2* Liver Function Test: Recent Labs 01/06/22 2320 12/23/21 1010 12/20/21 0935 12/17/21 0430 12/16/21 0240 BILITOT 0.6 0.6 0.5 0.3 0.3 BILIDIR 0.1 -- -- 0.1 0.1 ALBUMIN 2.8* 4.0 3.9 3.3 3.4 ALKPHOS 104 197* 178* 173* 197* ALT 10 20 20 12 11 AST 17 17 22 15 16 Component Value Date/Time SPGRAVITYUA 1.025 01/07/202212 PHUADIP 6.0 01/07/202212 PROTEINUADIP 30 (A) 01/07/202212 GLUCOSEU Negative 01/07/202212 KETONESUA 15 (A) 01/07/202212 UROBILIUADIP 0.2 01/07/202212 BLOODUADIP Large (A) 01/07/20223 NITRATEUA Negative 01/07/202212 LEUKOESTERUA Negative 01/07/202212 WBCUA 2 01/07/202212 BILIRUBINUA Negative 01/07/202212 Latest Reference Range & Units 01/08/22 11:18 Tube Num CSF #1 1 Color CSF #1 Colorless Red Appear CSF #1 Clear Clotted Tot Vol CSF #1 mL 3.0 Tube Num CSF #2 2 Color CSF #2 Colorless [place] Appear CSF #2 Clear Hazy Tot Vol CSF #2 mL 1.3 Tube Num CSF #3 3 Color CSF #3 Colorless [place] Appear CSF #3 Clear Slightly Hazy Tot Vol CSF #3 mL 1.5 Tube Num CSF #4 4 Color CSF #4 Colorless [place] Appear CSF #4 Clear Slightly Hazy Tot Vol CSF #4 mL 5.8 Tube # Ct CSF [address] 0 - 5 /mcl 83 (H) [1] RBC CSF CT /mcl 1,293 Tube #2nd CT [address] #2 /mcl 1887 Neutrophil CSF % 2 Lymphocyte CSF % 93 Macrophage CSF % [address] CSF Cells 200 Glucose, CSF mg/dL 67 [2] T Protein, CSF 15 - 45 mg/dL 346 (H) Xanthochromia Slight 01/08 Hematopathology DIAGNOSIS CEREBROPSINAL FLUID: - Traumatic tap. ??No malignant cells are seen on the cytocentrifuge preparation. DISCUSSION: - The specimen shows possible contamination with peripheral blood and may not be reflective of true CSF parameters. Microbiology: OSH blood cultures 12/29 (2 sets) and 01/04 (1 set) -- both were NGTD as of 01/09/2201/06 SARS-CoV2 - NG 01/06 Blood Cx x1: NGTD 01/07 Blood Cx x1: NGTD 01/08 CSF Cx: NGTD CSF studies: - Cryptococcal Ag negative - Enterovirus PCR negative - HSV1/2 - negative Radiology/Studies/Procedures: Imaging studies reviewed. 01/07: MRI brain wwo contrast IMPRESSION 1. No new intra-axial lesion or abnormal enhancement. 2. As curvilinear site of blood products in the left frontal lobe potentially representing small area of hemorrhage or thrombosed developmental venous anomaly ?? 01/07 CTH - negative 12/29 CTAP wo: no acute process 12/29: CXR - Bibasilar infiltrates Impression: Herber Iverson Jr. is a 61 y.o. 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 He initially improved but spiked a fever and was started on cefepime for a possible PNA. He is immunocompromised and continued to have decreased mentation, hence was transferred to [facility] for further management. In [facility], cefepime was switched to Zosyn. He had extensive work up for encephalopathy including 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 COORDINATOR infection (both bacterial and viral) and was empirically started treatmentafter LP. No positive cultures so far. Our team is being consulted for due to concern for viral 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 COORDINATOR i nfection. From ID standpoint, our suspicion for 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 COORDINATOR infection (both viral or bacterial) is low since clinical picture is explained by an alternative process. He never had headaches, viral prodrome, or exam findings c/f meningitis/encephalitis. He had a traumatic tap and this is supported by the hemopath findings. Cultures and viral studies has been negative as well, so we recommend stopping antibiotics and antiviral and only keeping the needed prophylaxis for this immunocompromised patient. My sense is that he had a low PO intake since post HSCT and given that he had colectomy, he is more prone to develop dehydration leading to prerenal STACIE which made him encephalopathic. He had history of stroke in the past which may have also contributed to aspiration aside from encephalopathy causing PNA (CXR showing R>L basal infiltrates.) His GFR at OSH <20 and with inappropriately dosed cefepime along with hypoalbuminemia (resulting to increased free drug), toxicity is certainly possible. 85% of cefepime is renally cleared and can cross BBB attaching to GINNY receptors leading to decreased in mentation. Since transfer, his renal function was also noted to recover and treatment is withdrawal of the drug which has been done on 01/06. The average time for improvement of mentation is about 2 days after discontinuation, which fits in his clinical picture. No further recommendation. Recommendations: Monitor off antibiotics and IV antivirals Antiviral, antifungal and PCP prophylaxis per heme. Follow cultures and studies. This patient was discussed with ID attending Dr. Dodge. Recommendations discussed with primary treating team. Thank you very much for this interesting consult and allowing me to participate in this patient's care. Do not hesitate to page ID [id number] team with any further questions or concerns. ID will sign off. Please contact us if further consultation required. Herber Post MD Infectious Diseases Fellow Pager #: [phone] 01/09/2022 6:03 PM I have seen the patient and reviewed the above history and physical and I agree with the details as written. The assessment and plan were formulated in discussion with me and I agree with them as documented. Patient has no signs or symptoms of encephalitis or meningitis at this time and LP was traumatic making it difficulty to interpret results. Infectious workup has been negative. All treatable viral etiologies have been assessed. Cefepime is known to cause 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 COORDINATOR toxicity especially in the setting of excessive dosing and renal dysfunction. His symptoms seemed to start with addition of Cefepime and clear after cessation of Cefepime. I would recommend stopping all antimicrobials that were started for empiric 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 COORDINATOR infection and continue to monitor clinically. If there remains concern, then would recommend repeat LP before starting anything empirically. Our suspicion for any infection at this time remains low. Stefany Dodge DO, MPH Infectious Disease Care Management - Aruna Saunders RN - 01/09/2022 10:12 AM EDT OFFICE OF CARE MANAGEMENT PROGRESS NOTE LOS: Hospital Day 3 days Chart reviewed, care reviewed with primary team and at interdisciplinary rounds. Patient continues to meet inpatient level of care related to: fatigue, worsening pneumonia. Functional status prior to admission: Independent Home Environment: Others in the home: significant other, pet(s) (SO Chrissy and 2 cats). Current Living Arrangements: home/apartment/condo. Accessibility Concerns: 3 NINFA mainly on one level. Current Functional Ability: Assistive Person and Equipment DME used at home: unable to assess DME Needed at Discharge: TBD Patient is insured through: Primary Insurance: [place] Payor: [place] / Plan: [place] / Product Type: *No Product type* / Secondary Insurance: N/A Plan for discharge is: Home w/ Services Outpatient Agency/Support Group Needs: Homecare agency Agency Referrals: Watch for VNA needs Transportation: family or friend will provide Barriers to discharge: Discharge planning Psych: Adjustment to diagnosis/illness Plan going forward: Care Management will continue to follow and assist with discharge planning and coordination of care as indicated. Anticipated Date of Discharge: 01/13/2022 Aruna Saunders RN, BSN, [place] Sleeve Setter Safety Stitch Pager [phone] Consult Note - Reyna Teague RN - 01/09/2022 9:53 AM EDT prime broker consult note - pt wearing a nicely intact Coloplast #[id number] pouch with ring and barrier strips that was placed on Thursday. Pouch hooked up to a cha bag & draining thin liquid stool. Stoma appears red & viable through the pouch. Dropped off additional supplies so pt now has 2 spare #[id number] pouches, 3 spare #[id number] pouches, 4 spare rings, & 8 spare barrier strips. Will follow for apouch change tomorrow. JOHNNIE Perera, RN, CWOCN 01/09/2022 Enterostomal Therapy Team Pager #[phone] Consult Note - Felicita Shore - 01/09/2022 8:53 AM EDTSummary: Medical Student Consult Note Neurology Consult Note -01/09/22 Patient name:Herber Iverson Jr. Date of :1960 Admit date: 01/06/2022 Attending: Lexx Zavala CC: Encephalopathy ID: Herber Iverson Jr. is a 61 y.o. 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 Neurology was consulted for ongoing encephalopathy. See full Neurology HPI 01/07/22: Herber's girlfriend Chai is present in the room to assist with history. She reports that he was takento the ED 9 days ago with dehydration manifesting as confusion. He was found to have STACIE on CKD and tacrolimus toxicity. With IVF he is reported to have improvement and disposition planning was ongoingfor discharge when he developed fever of 38.7 on 01/04. CXR showed evidence of PNA for which he was started on cefepime. ?? The following day he is reported to have been less alert and not oriented. A new nonspecific rash was noted and vancomycin was added. He was transferred to [facility] Hematology overnight for further workup.On arrival Cefepime was stopped and Zosyn was started for HAP. Interval Events: - cVEEG was discontinued yesterday - LP performed yesterday with abnormal results - He continued on empiric meningitis therapy with ceftriaxone, ampicillin, vancomycin, acyclovir, fluconazole, and methylprednisone given his immunocompromised state and unclear etiology - Herber reports he slept well overnight, has been eating regular diet, good urine and ostomy output. - He continues to seem improved this morning, he's conversational and oriented and is able to fully participate in the exam. - Denies any new neurological symptoms. No headaches, no weakness, no loss of sensation, no vision changes since yesterday. Past Medical History: Past Medical History: Diagnosis Date ??? AML (acute myeloblastic leukemia) 04/2021 ??? BPH (benign prostatic hyperplasia) ??? GERD (gastroesophageal reflux disease) ??? Paroxysmal atrial fibrillation ??? 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 Medications: Colostomy Belt, Ostomy Supplies, acyclovir, aspirin, dronabinoL, flecainide, fluconazole, lidocaine-prilocaine, loperamide, magnesium oxide, metoprolol tartrate, ondansetron, pantoprazole EC, predniSONE, rosuvastatin, tacrolimus, tamsulosin, and vancomycin Allergies: Allergies Allergen Reactions ??? Other [Unclassified Drug] Other (See Comments) Artificial Sweetners-lightheadedness, dizziness ??? Bactoshield Chg [Chlorhexidine Gluconate] Itching and Rash CHG wipes reported he gets a rash and is itchy. Family history: Family History Problem Relation Age of Onset ??? 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 Lives with girlfriend in [place], [place]. . No biologic children. Physical Exam: Vitals: Temp: [36.4 ??C (97.5 ??F)-36.7 ??C (98.1 ??F)] Heart Rate: [91-103] Resp: [18-20] BP: (125-132)/(86-99) SpO2: [95 %-98 %] Heart Rate from SpO2: [91 bpm-99 bpm] Neuro: MS: Awake, alert, oriented to person, place, month, date and year. 5 digit span - without difficulty and smoother than yesterday. Spelled TABLE backwards without difficulty. No dysarthria, appropriately conversational and cooperative with neuro exam. CN: Pupils 4mm ERRL, EOMI, visual jacobs full to confrontation, denies blurring or double vision, nonystagmus. Facial sensation intact to light touch No facial asymmetry Hearing intact to voice Palate elevates symmetrically, tongue protrudes midline SCM and trap strength intact Motor: Normal bulk and tone. No pronator drift. Mild shaking observed yesterday has improved. Mild action tremor noted. Raises arms and legs of bed without difficulty. Follows two-step commands, able to touch R finger to L ear. Sensation: Grossly intact to light touch. Reports ongoing tingly feet b/l Reflexes: DTRs 2 R, 2 L Biceps 2 R, 2 L Brachioradialis 2 R, 2 L Patellar 2 R, 2 L Achilles tendon Babinski - R equivocal, L equivocal Coordination: Finger to nose intact, no dysmetria. Some fine motor difficulties Gait: Deferred. Has not gotten out of bed yet. Labs: Recent Results (from the past 24 hour(s)) Prothrombin Time Result Value Ref Range PT 16.2 (H) 9.4 - 12.5 sec INR 1.4 Protein Level CSF Result Value Ref Range T Protein, CSF 346 (H) 15 - 45 mg/dL Xanthochromia Slight Glucose Level CSF Result Value Ref Range Glucose, CSF 67 mg/dL CSF Culture Specimen: Cerebrospinal Fluid Result Value Ref Range Central Nervous System Culture No growth to date. Gram Stain Cytocentrifuge Gram Stain performed No Neutrophils seen. No microorganisms seen. Cryptococcal Antigen CSF ([facility]/CGP/APD/NLH) Specimen: Cerebrospinal Fluid Result Value Ref Range CSF Cryptococcal Ag Negative Negative Leukemia Lymphoma Screen Cerebrospinal Fluid Result Value Ref Range LLS BF Type CSF Leukemia Lymphoma Screen See Comment Enterovirus PCR, CSF Specimen: Cerebrospinal Fluid Result Value Ref Range Enterovirus PCR, Qualitative Negative Negative HSV 1 and 2 PCR Specimen: Cerebrospinal Fluid Specimen Type:->Cerebrospinal Fluid Result Value Ref Range HSV-1 PCR Not Detected Not Detected HSV-2 PCR Not Detected Not Detected HSV Source CSF Body Fluid HOLD Cerebrospinal Fluid Result Value Ref Range Hold BF Type Sample in lab. CSF DESC 1 Result Value Ref Range Tube Num CSF #1 1 Color CSF #1 Red Colorless Appear CSF #1 Clotted Clear Tot Vol CSF #1 3.0 mL CSF DESC 2 Result Value Ref Range Tube Num CSF #2 2 Color CSF #2 [place] Colorless Appear CSF #2 Hazy Clear Tot Vol CSF #2 1.3 mL CSF DESC 3 Result Value Ref Range Tube Num CSF #3 3 Color CSF #3 [place] Colorless Appear CSF #3 Slightly Hazy Clear Tot Vol CSF #3 1.5 mL CSF DESC 4 Result Value Ref Range Tube Num CSF #4 4 Color CSF #4 [place] Colorless Appear CSF #4 Slightly Hazy Clear Tot Vol CSF #4 5.8 mL CSF Cell Count Result Value Ref Range Tube # Ct CSF [address] 83 (H) 0 - 5 /mcl RBC CSF CT 1,293 /mcl Neutrophil CSF 2 % Lymphocyte CSF 93 % Macrophage CSF 5 % Tot Diff Ct CSF 200 Cells CSF Cell Count 2nd count Result Value Ref Range Tube #2nd CT [address] #2 1887 /mcl Fluid Review Report Result Value Ref Range Fluid Review Report [id number] Location: [facility]; [facility]; A The signing pathologist has (i) examined the relevant preparation(s) for the specimen(s) and (ii) rendered or confirmed the diagnosis(es). . Fluid Review DIAGNOSIS CEREBROPSINAL FLUID: traumatic tap. No malignant cells are seen on the cytocentrifuge preparation. Electronically signed by: Eliseo Boogie MD Verified: 01/08/2022 18:15 Hematopathologist Performed at: -[facility] Dept. of Pathology, [place], [place] DISCUSSION The specimen shows possible contamination with peripheral blood and may not be reflective of true CSF parameters. ADDITIONAL STUDIES WBC/uL: 83 RBC/uL: 1293 200 cells counted on cytocentrifuge preparation. Numerous small and intermediate sized mature lymphocytes, reactive macrophages, neutrophils seen. 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 Magnesium Result Value Ref Range Magnesium 0.70 0.69 - 1.07 mmol/L Phosphorus Result Value Ref Range Phosphorus 1.8 (L) 2.5 - 4.5 mg/dL Hemogram Result Value Ref Range WBC 8.5 4.0 - 9.5 x10(3)/mcL RBC 2.24 (L) 4.58 - 5.54 x10(6)/mcL Hemoglobin 7.7 (L) 13.7 - 16.5 g/dL Hematocrit 22.8 (L) 40.5 - 48.5 % MCV 101.8 (H) 82.9 - 93.1 fL MCH 34.4 (H) 27.5 - 32.1 pg MCHC 33.8 32.0 - 35.7 g/dL Platelets 59 (L) 145 - 357 x10(3)/mcL RDWSD 62.0 (H) 36.0 - 45.0 fL RDWCV 16.5 (H) 11.4 - 13.8 % MPV 12.3 7.6 - 12.9 fL nRBC % Auto 0.0 % nRBC Abs Auto 0.000 0.000 - 0.000 x10(3)/mcL Differential, Automated Result Value Ref Range Neutrophils % 89.9 % Neutr Abs (ANC) 7.65 (H) 1.70 - 6.10 x10(3)/mcL Lymphocytes % 4.3 % Lymphocytes Abs 0.4 (L) 0.9 - 3.2 x10(3)/mcL Monocytes % 3.1 % Monocyte Abs 0.3 0.3 - 0.9 x10(3)/mcL Eosinophils % 2.1 % Eosinophils Abs 0.2 0.0 - 0.4 x10(3)/mcL Basophils % 0.0 % Basophils Abs 0.0 0.0 - 0.1 x10(3)/mcL Immature Gran % 0.60 % Zara Gran Abs 0.05 (H) 0.00 - 0.04 x10(3)/mcL Diagnostic Tests and Imaging: MRI Brain wwo Contrast 01/07/22: IMPRESSION 1. No new intra-axial lesion or abnormal enhancement. ?? 2. As curvilinear site of blood products in the left frontal lobe potentially representing small area of hemorrhage or thrombosed developmental venous anomaly CT head wo Contrast 01/07/22: FINDINGS: Vann-white interface appears well differentiated. Lateral ventricles are symmetric. Basal cisterns are patent. No global mass effect, midline shift, herniation, large space-occupying processappreciated. No acuteintracranial abnormality. IMPRESSION No acute intracranial abnormality. EEG Report: Interpretation This EEG is abnormal due to: 1. Occasional generalized periodic discharges at 1-1.5 Hz coming in isolation or as very brief 2-3 second runs. This discharges often have a triphasic morphology and anterior to posterior lag 2. Continuous generalized slowing of the background in the theta range with a PDR of 6-7Hzz ?? CLINICAL CORRELATION: This abnormal EEG is suggestive of a diffuse mild to moderate nonspecific cerebral dysfunction. No seizures or epileptiform discharges seen thus far. ?? Assessment: Herber Iverson Jr. is a 61 y.o. 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 Neurology was consulted for ongoing encephalopathy. Herber's mental status continues to seem improved. He is alert and oriented to person, place, date, and time. Today he is able to recite 5 digit spans smoothly, without difficulty and he is appropriatelyconversational. He continues to have a mild action tremor in bilateral upper extremities and parasthenia of both legs, but this seems to be baseline and his hematology/oncology team believes both symptoms are likely in the setting of his chemotherapy regimen. His encephalopathy seems to be resolved but etiology remains unclear. It could have been d/t cefapime toxicity with metabolic disturbance given his improvement since discontinuing the medication. However, his LP reflects an encephalitis with a high total protein, normal glucose, and lymphocytic predominance. This may indicate a viral infection, though CSF was negative for common causes including enterovirus, HSV 1&2, and cryptococcus. There was no evidence of malignant cells in the CSF sample. Would recommend ID consult for further work up of less common causes given his immunosuppression. It is reassuring that Herber is not complaining of any headaches, neck stiffness, and has not been febrile. Plan: - Continue ABX, acyclovir, fluconazole and methyl prednisone - Consult ID for further encephalitis work up Felicita Shore [facility] Consult Note - Frances Ward, BOILER WATER TESTER - 01/09/2022 6:48 AM EDT Neurology Consult Note Patient name:Herber Iverson Jr. Date of :1960 Admit date: 01/06/2022 Attending: Kota Zavala MD Primary Team: Hematology CC: Encephalopathy HPI: See Neurology Note 01/07/2022 for full HPI Herber Iverson Jr. is a 61 y.o. 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 Neurology is consulted for ongoing encephalopathy. Per girlfriend Herber Paula was taken to the ED 9 days ago with dehydration manifesting as confusion.He was found to have STACIE on CKD and tacrolimus toxicity. He was improving with IVF and anticipated discharge when he developed a fever of 38.7 on 01/04. CXR showed evidence of PNA for which he was striated on cefepime. ?? The following day he is reported to have been less alert and not oriented. A new nonspecific rash was noted and vancomycin was added. He was transferred to [facility] Hematology overnight for further workup.On arrival Cefepime was stopped and Zosyn was started for HAP. Interval Events: - Updates: cont. empiric meningitis therapy: ceftriaxone, ampicillin, vanc, acyclovir as well as zosyn for HAP, LP complete - Vitals: SBP 130s, HR 90s, normothermic Past Medical History: Past Medical History: Diagnosis Date ??? AML (acute myeloblastic leukemia) 04/2021 ??? BPH (benign prostatic hyperplasia) ??? GERD (gastroesophageal reflux disease) ??? Paroxysmal atrial fibrillation ??? 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 Medications: Colostomy Belt, Ostomy Supplies, acyclovir, aspirin, dronabinoL, flecainide, fluconazole, lidocaine-prilocaine, loperamide, magnesium oxide, metoprolol tartrate, ondansetron, pantoprazole EC, predniSONE, rosuvastatin, tacrolimus, tamsulosin, and vancomycin Allergies: Allergies Allergen Reactions ??? Other [Unclassified Drug] Other (See Comments) Artificial Sweetners-lightheadedness, dizziness ??? Bactoshield Chg [Chlorhexidine Gluconate] Itching and Rash CHG wipes reported he gets a rash and is itchy. Family history: Family History Problem Relation Age of Onset ??? 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 Lives with girlfriend in [place], [place]. . No biologic children. Objective: Constitutional: appears stated age, in no acute distress HEENT: Head atraumatic, normocephalic. Sclera non-icteric. CV: S1, S2, no murmurs, rubs or gallops. Radial pulses and posterior tibial pulses 2+ with no edema Resp: Chest rise and fall symmetric, all jacobs clear with no adventitious sounds Integumentary Diffuse rash of LUE, states this is not new Neuro: ?? MS: Alert and oriented to self, location, and date. Speech is spontaneous, smooth and articulate without dysarthria. Memory grossly intact to the situation and disease history. Cannot recall finer details (medications etc) Follows simple and complex commands. Repeats serial #'s without error. Does not feel confused and does not seem to have recollection of AMS. ?? CN: ?? PERRL, EOMI, visual jacobs full ?? Facial sensation intact throughout ?? No facial asymmetry, movement intact ?? Hearing intact to finger rub ?? Palate elevates symmetrically, tongue protrudes midline ?? SCM and trap strength intact. ?? Motor: Normal bulk and tone. No clonus. No pronator drift. ?? UE: BUE action tremor ?? Arm abduction at shoulder: 5/5 R, 5/5 L ?? Elbow extension: 5/5 R, 5/5 L ?? Elbow flexion: 5/5 R, 5/5 L ?? Glassine Machine Tender: 5/5 R, 5/5 L ?? LE: ?? Hip flexion: 5/5 R, 5/5 L ?? Knee extension: 5/5 R, 5/5 L ?? Knee flexion: 5/5 R, 5/5 L ?? Foot dorsiflexion: 5/5 R, 5/5 L ?? Foot plantar flexion: 5/5 R, 5/5 L ?? Sensation: Reports baseline numbness of BLE ?? UEs: Intact to light touch throughout. ?? LEs: Intact to light touch throughout. ?? Reflexes: ?? UE DTRs: ?? Triceps 2+R, 2+L ?? Biceps 2+R, 2+L ?? Brachioradialis 2+R, 2+L. ?? LE DTRs: ?? Patellar 2+R, 2+L ?? Achilles: 2+R, 2+L ?? Downgoing toes bilaterally ?? Coordination: Finger to nose and heel petty without dysmetria/ataxia. Observed some fine motor coordination difficulties ?? Gait and Sation: Deferred Labs: Recent Results (from the past 24 hour(s)) Prothrombin Time Result Value Ref Range PT 16.2 (H) 9.4 - 12.5 sec INR 1.4 Protein Level CSF Result Value Ref Range T Protein, CSF 346 (H) 15 - 45 mg/dL Xanthochromia Slight Glucose Level CSF Result Value Ref Range Glucose, CSF 67 mg/dL CSF Culture Specimen: Cerebrospinal Fluid Result Value Ref Range Gram Stain Cytocentrifuge Gram Stain performed No Neutrophils seen. No microorganisms seen. Cryptococcal Antigen CSF ([facility]/CGP/APD/[facility]H) Specimen: Cerebrospinal Fluid Result Value Ref Range CSF Cryptococcal Ag Negative Negative Leukemia Lymphoma Screen Cerebrospinal Fluid Result Value Ref Range LLS BF Type CSF Leukemia Lymphoma Screen See Comment Enterovirus PCR, CSF Specimen: Cerebrospinal Fluid Result Value Ref Range Enterovirus PCR, Qualitative Negative Negative HSV 1 and 2 PCR Specimen: Cerebrospinal Fluid Specimen Type:->Cerebrospinal Fluid Result Value Ref Range HSV-1 PCR Not Detected Not Detected HSV-2 PCR Not Detected Not Detected HSV Source CSF Body Fluid HOLD Cerebrospinal Fluid Result Value Ref Range Hold BF Type Sample in lab. CSF DESC 1 Result Value Ref Range Tube Num CSF #1 1 Color CSF #1 Red Colorless Appear CSF #1 Clotted Clear Tot Vol CSF #1 3.0 mL CSF DESC 2 Result Value Ref Range Tube Num CSF #2 2 Color CSF #2 [place] Colorless Appear CSF #2 Hazy Clear Tot Vol CSF #2 1.3 mL CSF DESC 3 Result Value Ref Range Tube Num CSF #3 3 Color CSF #3 [place] Colorless Appear CSF #3 Slightly Hazy Clear Tot Vol CSF #3 1.5 mL CSF DESC 4 Result Value Ref Range Tube Num CSF #4 4 Color CSF #4 [place] Colorless Appear CSF #4 Slightly Hazy Clear Tot Vol CSF #4 5.8 mL CSF Cell Count Result Value Ref Range Tube # Ct CSF [address] 83 (H) 0 - 5 /mcl RBC CSF CT 1,293 /mcl Neutrophil CSF 2 % Lymphocyte CSF 93 % Macrophage CSF 5 % Tot Diff Ct CSF 200 Cells CSF Cell Count 2nd count Result Value Ref Range Tube #2nd CT [address] #2 1887 /mcl Fluid Review Report Result Value Ref Range Fluid Review Report [id number] Location: [facility]; [facility]; A The signing pathologist has (i) examined the relevant preparation(s) for the specimen(s) and (ii) rendered or confirmed the diagnosis(es). . Fluid Review DIAGNOSIS CEREBROPSINAL FLUID: traumatic tap. No malignant cells are seen on the cytocentrifuge preparation. Electronically signed by: Eliseo Boogie MD Verified: 01/08/2022 18:15 Hematopathologist Performed at: -[facility] Dept. of Pathology, [place], [place] DISCUSSION The specimen shows possible contamination with peripheral blood and may not be reflective of true CSF parameters. ADDITIONAL STUDIES WBC/uL: 83 RBC/uL: 1293 200 cells counted on cytocentrifuge preparation. Numerous small and intermediate sized mature lymphocytes, reactive macrophages, neutrophils seen. 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 Magnesium Result Value Ref Range Magnesium 0.70 0.69 - 1.07 mmol/L Phosphorus Result Value Ref Range Phosphorus 1.8 (L) 2.5 - 4.5 mg/dL Hemogram Result Value Ref Range WBC 8.5 4.0 - 9.5 x10(3)/mcL RBC 2.24 (L) 4.58 - 5.54 x10(6)/mcL Hemoglobin 7.7 (L) 13.7 - 16.5 g/dL Hematocrit 22.8 (L) 40.5 - 48.5 % MCV 101.8 (H) 82.9 - 93.1 fL MCH 34.4 (H) 27.5 - 32.1 pg MCHC 33.8 32.0 - 35.7 g/dL Platelets 59 (L) 145 - 357 x10(3)/mcL RDWSD 62.0 (H) 36.0 - 45.0 fL RDWCV 16.5 (H) 11.4 - 13.8 % MPV 12.3 7.6 - 12.9 fL nRBC % Auto 0.0 % nRBC Abs Auto 0.000 0.000 - 0.000 x10(3)/mcL Differential, Automated Result Value Ref Range Neutrophils % 89.9 % Neutr Abs (ANC) 7.65 (H) 1.70 - 6.10 x10(3)/mcL Lymphocytes % 4.3 % Lymphocytes Abs 0.4 (L) 0.9 - 3.2 x10(3)/mcL Monocytes % 3.1 % Monocyte Abs 0.3 0.3 - 0.9 x10(3)/mcL Eosinophils % 2.1 % Eosinophils Abs 0.2 0.0 - 0.4 x10(3)/mcL Basophils % 0.0 % Basophils Abs 0.0 0.0 - 0.1 x10(3)/mcL Immature Gran % 0.60 % Zara Gran Abs 0.05 (H) 0.00 - 0.04 x10(3)/mcL Diagnostic Tests and Imaging: EEG Report 01/07/2022 This EEG is abnormal due to: 1. Occasional generalized periodic discharges at 1-1.5 Hz coming in isolation or as very brief 2-3 second runs. This discharges often have a triphasic morphology and anterior to posterior lag 2. Continuous generalized slowing of the background in the theta range with a PDR of 6-7Hzz MRI Brain wwo 01/07/2022 IMPRESSION 1. No new intra-axial lesion or abnormal enhancement. ?? 2. , As curvilinear site of blood products in the left frontal lobe potentially representing small area of hemorrhage or thrombosed developmental venous anomaly ?? CT Head wo 01/07/2022 FINDINGS: Vann-white interface appears well differentiated. Lateral ventricles are symmetric. Basal cisterns are patent. No global mass effect, midline shift, herniation, large space-occupying processappreciated. No acuteintracranial hemorrhage. ?? Orbits: Normal IMPRESSION No acute intracranial abnormality. Assessment: Herber Iverson Jr. is a 61 y.o. 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 Neurology is consulted for ongoing encephalopathy. Herber's mental status and mentation remain stable today. Although awakened from sleep, he is alert and clear. Continues to experience action tremor of BUE and parasthenia of BLE, which has been baselineand thought to be due to tacrolimus. Otherwise, exam is non-focal with and MRI without cause for AMS. LP obtained yesterday for AMS and instance of fever in the setting of immunocompromised state. LP showing elevated protein at 346 and nucleated CSF at 83. Negative HSV & enterovirus. Given this data, the etiology of Herber's AMS may be related to meningoencephalitis. While it is encouraging that Herber is improving, recommend continue workup for causative agents and more targeted therapy. Can consider metagenomic sequencing and consultation with Infectious Disease. ?? # Recommendations - Discontinue EEG - Continue abx/acyclovir pending PCR and Infections Disease recommendations ?? [x]??? Consult service will continue to follow patient. []? Recommendations are above, please page [phone] if further consultation is required. ?? Frances Ward APRN Neurology JESSICA Fellow Neurology Consult #[id number] Associated attestation - Kota Zavala MD - 01/09/2022 4:59 PM EDT Neurology Attending Attestation This patient was seen in conjunction with Frances Ward APRN as part of a shared visit. I have independently interviewed and examined the patient and reviewed the pertinent diagnostic information. I agree with the principal findings documented above. The assessment and plan were formulated in discussionwith me. Pertinent History: Retook hx: per girlfriend MS improved significantly at OSH with hydration, then worsened again therewith fever LP shows protein >300, lymphocytic pleocytosis (83 cells) though 1300 RBC, normal glucose. HSV/enterovirus negative CrAg negative Gram stain (-) Pertinent Exam: DS 5-6, following complex commands Major issues addressed: Meningoencephalitis Plan: Consult ID for additional work-up (fungal tests, additional viral tests, atypical or difficult to grow bacteria) Discussed with Dr Modi at the bedside Kota Zavala MD Manufacturing Associate of Neurology Consult Note - Felicita Shore - 01/08/2022 10:53 AM Trevon: Medical Student Consult Note Neurology Consult Note -01/08/22 Patient name:Herber Iverson Jr. Date of :1960 Admit date: 01/06/2022 Attending: Lexx Zvaala CC: Encephalopathy ID: Herber Iverson Jr. is a 61 y.o. 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 Neurology was consulted for ongoing encephalopathy. See full Neurology HPI 01/07/22 Interval Events: - Herber's mental status was waxing and waning intermittently yesterday. At times he was verbal, conversational and following commands, and other times he was entirely nonverbal and could not participatein a neurological exam. - He was started on empiric meningitis therapy with ceftriaxone, ampicillin, vancomycin, acyclovir, fluconazole, and methylprednisone given his immunocompromised state and unclear etiology - cVEEG was started for monitoring - MRI brain performed last night with Ativan given prior to good effect - Herber reports he slept well overnight - He is improved this morning, he's conversational and oriented and is able to fully participate in the exam. Past Medical History: Past Medical History: Diagnosis Date ??? AML (acute myeloblastic leukemia) 04/2021 ??? BPH (benign prostatic hyperplasia) ??? GERD (gastroesophageal reflux disease) ??? Paroxysmal atrial fibrillation ??? 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 Medications: Colostomy Belt, Ostomy Supplies, acyclovir, aspirin, dronabinoL, flecainide, fluconazole, lidocaine-prilocaine, loperamide, magnesium oxide, metoprolol tartrate, ondansetron, pantoprazole EC, predniSONE, rosuvastatin, tacrolimus, tamsulosin, and vancomycin Allergies: Allergies Allergen Reactions ??? Other [Unclassified Drug] Other (See Comments) Artificial Sweetners-lightheadedness, dizziness ??? Bactoshield Chg [Chlorhexidine Gluconate] Itching and Rash CHG wipes reported he gets a rash and is itchy. Family history: Family History Problem Relation Age of Onset ??? 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 Lives with girlfriend in [place], [place]. . No biologic children. Physical Exam: Vitals: Temp: [36.3 ??C (97.3 ??F)-37.4 ??C (99.3 ??F)] Heart Rate: [95] Resp: [18-24] BP: (133-142)/(86-92) SpO2: [97 %-99 %] Heart Rate from SpO2: [82 bpm-102 bpm] Neuro: MS: Awake, alert, oriented to person, place, month, date and year. Able to recite days of the week backwards. Able to recite 5 number digit span. No dysarthria, appropriately conversational and cooperative with neuro exam. CN: Pupils 4mm ERRL, EOMI, visual jacobs full to confrontation, denies blurring or double vision, nonystagmus. Facial sensation intact to light touch No facial asymmetry Hearing intact to voice Palate elevates symmetrically, tongue protrudes midline SCM and trap strength intact Motor: Normal bulk and tone. No pronator drift. Mild shaking b/l that has been ongoing. Raises arms and legs of bed without difficulty. Follows two-step commands, able to tough R finger to L ear. Sensation: Grossly intact to light touch. Reports ongoing tingly legs b/l Reflexes: DTRs 2 R, 2 L Biceps 2 R, 2 L Brachioradialis 2 R, 2 L Patellar 2 R, 2 L Achilles tendon Babinski - R equivocal, L equivocal Coordination: Finger to nose intact slow with mild tremor, no dysmetria. Tremor noted to b/l upper arms Gait: Deferred Labs: Recent Results (from the past 24 hour(s)) TSH Masterson Result Value Ref Range TSH 1.37 0.27 - 4.20 mcIU/mL Basic Metabolic Panel (non-fasting) Result Value Ref Range Glucose Lvl 122 65 - 199 mg/dL BUN 20 10 - 20 mg/dL Creatinine 1.14 0.80 - 1.50 mg/dL Sodium 139 135 - 145 mmol/L Potassium 3.8 3.5 - 5.0 mmol/L Chloride 108 (H) 98 - 107 mmol/L CO2 18 (L) 22 - 31 mmol/L Anion Gap 13 5 - 15 mmol/L Calcium 8.6 8.5 - 10.5 mg/dL Estimated GFR 69 >=60 mL/min/1.73 m?? Magnesium Result Value Ref Range Magnesium 0.67 (L) 0.69 - 1.07 mmol/L Basic Metabolic Panel (non-fasting) Result Value Ref Range Glucose Lvl 112 65 - 199 mg/dL BUN 23 (H) 10 - 20 mg/dL Creatinine 1.14 0.80 - 1.50 mg/dL Sodium 140 135 - 145 mmol/L Potassium 3.8 3.5 - 5.0 mmol/L Chloride 109 (H) 98 - 107 mmol/L CO2 17 (L) 22 - 31 mmol/L Anion Gap 14 5 - 15 mmol/L Calcium 8.1 (L) 8.5 - 10.5 mg/dL Estimated GFR 69 >=60 mL/min/1.73 m?? Magnesium Result Value Ref Range Magnesium 0.97 0.69 - 1.07 mmol/L Phosphorus Result Value Ref Range Phosphorus 3.1 2.5 - 4.5 mg/dL Hemogram Result Value Ref Range WBC 8.5 4.0 - 9.5 x10(3)/mcL RBC 2.22 (L) 4.58 - 5.54 x10(6)/mcL Hemoglobin 7.6 (L) 13.7 - 16.5 g/dL Hematocrit 22.3 (L) 40.5 - 48.5 % MCV 100.5 (H) 82.9 - 93.1 fL MCH 34.2 (H) 27.5 - 32.1 pg MCHC 34.1 32.0 - 35.7 g/dL Platelets 49 (L) 145 - 357 x10(3)/mcL RDWSD 62.0 (H) 36.0 - 45.0 fL RDWCV 16.7 (H) 11.4 - 13.8 % MPV 12.4 7.6 - 12.9 fL nRBC % Auto 0.0 % nRBC Abs Auto 0.000 0.000 - 0.000 x10(3)/mcL Differential, Automated Result Value Ref Range Neutrophils % 92.8 % Neutr Abs (ANC) 7.90 (H) 1.70 - 6.10 x10(3)/mcL Lymphocytes % 2.9 % Lymphocytes Abs 0.2 (L) 0.9 - 3.2 x10(3)/mcL Monocytes % 2.6 % Monocyte Abs 0.2 (L) 0.3 - 0.9 x10(3)/mcL Eosinophils % 0.8 % Eosinophils Abs 0.1 0.0 - 0.4 x10(3)/mcL Basophils % 0.0 % Basophils Abs 0.0 0.0 - 0.1 x10(3)/mcL Immature Gran % 0.90 % Zara Gran Abs 0.08 (H) 0.00 - 0.04 x10(3)/mcL Scan, Peripheral Blood Result Value Ref Range Plat Estimate Decreased RBC Morphology Abnormal Macrocytes 1-5 /HPF Prothrombin Time Result Value Ref Range PT 16.2 (H) 9.4 - 12.5 sec INR 1.4 Diagnostic Tests and Imaging: MRI Brain wwo Contrast 01/07/22: IMPRESSION 1. No new intra-axial lesion or abnormal enhancement. ?? 2. As curvilinear site of blood products in the left frontal lobe potentially representing small area of hemorrhage or thrombosed developmental venous anomaly CT head wo Contrast 01/07/22: FINDINGS: Vann-white interface appears well differentiated. Lateral ventricles are symmetric. Basal cisterns are patent. No global mass effect, midline shift, herniation, large space-occupying processappreciated. No acuteintracranial abnormality. IMPRESSION No acute intracranial abnormality. EEG Report: Interpretation This EEG is abnormal due to: 1. Occasional generalized periodic discharges at 1-1.5 Hz coming in isolation or as very brief 2-3 second runs. This discharges often have a triphasic morphology and anterior to posterior lag 2. Continuous generalized slowing of the background in the theta range with a PDR of 6-7Hzz ?? CLINICAL CORRELATION: This abnormal EEG is suggestive of a diffuse mild to moderate nonspecific cerebral dysfunction. No seizures or epileptiform discharges seen thus far. ?? Assessment: Herber Iverson Jr. is a 61 y.o. 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 Neurology was consulted for ongoing encephalopathy. Herber's mental status is very much improved today. He is alert and oriented to person, place, date, and time. He is able to follow commands as well as recite 5 digit spans and he is conversational. He notes his mild tremor and tingly legs have been ongoing and his hematology/oncology team believes bothsymptoms are likely in the setting of his chemotherapy regimen. His neurologic exam today is non-focal and his MRI was not significant for any causes of AMS. Given his improvement as well as the waxing and waning nature of his mental status yesterday, this was likely delirium in the setting of ongoing hospitalization. It is also possible this was cefepime toxicitywith metabolic disturbances given his improvement since discontinuing the medication. His 24 hour EEG reflects likely toxometabolic related changes. We did start empiric treatment for meningitis given his immunocompromised state, so it is unclear whether this treatment contributed to his improvement. We will obtain an LP today for more clarity and further infectious work up, and we will adjust the medications accordingly if there is a low suspicion for infectious etiology. Plan: - D/c EEG monitoring - LP today with a fluid hold - Continue ABX, acyclovir, fluconazole and methyl prednisone pending LP results. Felicita Shore MSIV Consult Note - Frances Ward, BOILER WATER TESTER - 01/08/2022 7:21 AM EDT Neurology Consult Note Patient name:Herber Iverson Jr. Date of :1960 Admit date: 01/06/2022 Attending: Kota Zavala MD Primary Team: Hematology CC: Encephalopathy HPI: See Neurology Note 01/07/2022 for full HPI Herber Iverson Jr. is a 61 y.o. 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 Neurology is consulted for ongoing encephalopathy. Per girlfriend Chai, Herber was taken to the ED 9 days ago with dehydration manifesting as confusion.He was found to have STACIE on CKD and tacrolimus toxicity. He was improving with IVF and anticipated discharge when he developed a fever of 38.7 on 01/04. CXR showed evidence of PNA for which he was striated on cefepime. ?? The following day he is reported to have been less alert and not oriented. A new nonspecific rash was noted and vancomycin was added. He was transferred to [facility] Hematology overnight for further workup.On arrival Cefepime was stopped and Zosyn was started for HAP. Interval Events: - Updates: mental status waxing and waning,cVEEG placed - Vitals: SBP 130-140s, HR 80s-100, normothermic Past Medical History: Past Medical History: Diagnosis Date ??? AML (acute myeloblastic leukemia) 04/2021 ??? BPH (benign prostatic hyperplasia) ??? GERD (gastroesophageal reflux disease) ??? Paroxysmal atrial fibrillation ??? 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 Medications: Colostomy Belt, Ostomy Supplies, acyclovir, aspirin, dronabinoL, flecainide, fluconazole, lidocaine-prilocaine, loperamide, magnesium oxide, metoprolol tartrate, ondansetron, pantoprazole EC, predniSONE, rosuvastatin, tacrolimus, tamsulosin, and vancomycin Allergies: Allergies Allergen Reactions ??? Other [Unclassified Drug] Other (See Comments) Artificial Sweetners-lightheadedness, dizziness ??? Bactoshield Chg [Chlorhexidine Gluconate] Itching and Rash CHG wipes reported he gets a rash and is itchy. Family history: Family History Problem Relation Age of Onset ??? 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 Lives with girlfriend in [place], [place]. . No biologic children. Objective: Constitutional: appears stated age, in no acute distress HEENT: Head atraumatic, normocephalic. Sclera non-icteric. CV: S1, S2, no murmurs, rubs or gallops. Radial pulses and posterior tibial pulses 2+ with no edema Resp: Chest rise and fall symmetric, all jacobs clear with no adventitious sounds Integumentary No obvious diffuse rashes Neuro: ?? MS: Alert and oriented to self, location, and date. Speech is spontaneous, smooth and articulate without dysarthria. Memory grossly intact to the situation and disease history. Cannot recall finer details (medications etc) Follows simple and complex commands. Does not feel confused and does not seem to have recollection of AMS. ?? CN: ?? PERRL, EOMI, visual jacobs full ?? Facial sensation intact throughout ?? No facial asymmetry, movement intact ?? Hearing intact to finger rub ?? Palate elevates symmetrically, tongue protrudes midline ?? SCM and trap strength intact. ?? Motor: Normal bulk and tone. No clonus. No pronator drift. ?? UE: BUE action tremor ?? Arm abduction at shoulder: 5/5 R, 5/5 L ?? Elbow extension: 5/5 R, 5/5 L ?? Elbow flexion: 5/5 R, 5/5 L ?? Glassine Machine Tender: 5/5 R, 5/5 L ?? LE: ?? Hip flexion: 5/5 R, 5/5 L ?? Knee extension: 5/5 R, 5/5 L ?? Knee flexion: 5/5 R, 5/5 L ?? Foot dorsiflexion: 5/5 R, 5/5 L ?? Foot plantar flexion: 5/5 R, 5/5 L ?? Sensation: Reports baseline numbness of BLE ?? UEs: Intact to light touch throughout. ?? LEs: Intact to light touch throughout. ?? Reflexes: ?? UE DTRs: ?? Triceps 2+R, 2+L ?? Biceps 2+R, 2+L ?? Brachioradialis 2+R, 2+L. ?? LE DTRs: ?? Patellar 2+R, 2+L ?? Achilles: 2+R, 2+L ?? Downgoing toes bilaterally ?? Coordination: Finger to nose and heel petty without dysmetria/ataxia. Observed some fine motor coordination difficulties- plugging in phone to purchasing/receiving ?? Gait and Sation: Deferred Labs: Recent Results (from the past 24 hour(s)) TSH Masterson Result Value Ref Range TSH 1.37 0.27 - 4.20 mcIU/mL Basic Metabolic Panel (non-fasting) Result Value Ref Range Glucose Lvl 122 65 - 199 mg/dL BUN 20 10 - 20 mg/dL Creatinine 1.14 0.80 - 1.50 mg/dL Sodium 139 135 - 145 mmol/L Potassium 3.8 3.5 - 5.0 mmol/L Chloride 108 (H) 98 - 107 mmol/L CO2 18 (L) 22 - 31 mmol/L Anion Gap 13 5 - 15 mmol/L Calcium 8.6 8.5 - 10.5 mg/dL Estimated GFR 69 >=60 mL/min/1.73 m?? Magnesium Result Value Ref Range Magnesium 0.67 (L) 0.69 - 1.07 mmol/L Basic Metabolic Panel (non-fasting) Result Value Ref Range Glucose Lvl 112 65 - 199 mg/dL BUN 23 (H) 10 - 20 mg/dL Creatinine 1.14 0.80 - 1.50 mg/dL Sodium 140 135 - 145 mmol/L Potassium 3.8 3.5 - 5.0 mmol/L Chloride 109 (H) 98 - 107 mmol/L CO2 17 (L) 22 - 31 mmol/L Anion Gap 14 5 - 15 mmol/L Calcium 8.1 (L) 8.5 - 10.5 mg/dL Estimated GFR 69 >=60 mL/min/1.73 m?? Magnesium Result Value Ref Range Magnesium 0.97 0.69 - 1.07 mmol/L Phosphorus Result Value Ref Range Phosphorus 3.1 2.5 - 4.5 mg/dL Hemogram Result Value Ref Range WBC 8.5 4.0 - 9.5 x10(3)/mcL RBC 2.22 (L) 4.58 - 5.54 x10(6)/mcL Hemoglobin 7.6 (L) 13.7 - 16.5 g/dL Hematocrit 22.3 (L) 40.5 - 48.5 % MCV 100.5 (H) 82.9 - 93.1 fL MCH 34.2 (H) 27.5 - 32.1 pg MCHC 34.1 32.0 - 35.7 g/dL Platelets 49 (L) 145 - 357 x10(3)/mcL RDWSD 62.0 (H) 36.0 - 45.0 fL RDWCV 16.7 (H) 11.4 - 13.8 % MPV 12.4 7.6 - 12.9 fL nRBC % Auto 0.0 % nRBC Abs Auto 0.000 0.000 - 0.000 x10(3)/mcL Differential, Automated Result Value Ref Range Neutrophils % 92.8 % Neutr Abs (ANC) 7.90 (H) 1.70 - 6.10 x10(3)/mcL Lymphocytes % 2.9 % Lymphocytes Abs 0.2 (L) 0.9 - 3.2 x10(3)/mcL Monocytes % 2.6 % Monocyte Abs 0.2 (L) 0.3 - 0.9 x10(3)/mcL Eosinophils % 0.8 % Eosinophils Abs 0.1 0.0 - 0.4 x10(3)/mcL Basophils % 0.0 % Basophils Abs 0.0 0.0 - 0.1 x10(3)/mcL Immature Gran % 0.90 % Zara Gran Abs 0.08 (H) 0.00 - 0.04 x10(3)/mcL Scan, Peripheral Blood Result Value Ref Range Plat Estimate Decreased RBC Morphology Abnormal Macrocytes 1-5 /HPF Diagnostic Tests and Imaging: EEG Report 01/07/2022 This EEG is abnormal due to: 1. Occasional generalized periodic discharges at 1-1.5 Hz coming in isolation or as very brief 2-3 second runs. This discharges often have a triphasic morphology and anterior to posterior lag 2. Continuous generalized slowing of the background in the theta range with a PDR of 6-7Hzz MRI Brain wwo 01/07/2022 IMPRESSION 1. No new intra-axial lesion or abnormal enhancement. ?? 2. , As curvilinear site of blood products in the left frontal lobe potentially representing small area of hemorrhage or thrombosed developmental venous anomaly ?? CT Head wo 01/07/2022 FINDINGS: Vann-white interface appears well differentiated. Lateral ventricles are symmetric. Basal cisterns are patent. No global mass effect, midline shift, herniation, large space-occupying processappreciated. No acuteintracranial hemorrhage. ?? Orbits: Normal IMPRESSION No acute intracranial abnormality. Assessment: Herber Iverson Jr. is a 61 y.o. 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 Neurology is consulted for ongoing encephalopathy. Herber's mental status and mentation is greatly improved today. He is bright, alert, and clear. He is experiencing some action tremor of BUE and parasthenia of BLE, which has been baseline and thought roly due to tacrolimus. Otherwise, exam is non-focal with and MRI without cause for AMS. 24hr EEG reflecting likely toxometabolic related changes. Given Herber's overall improvement, it is reasonable that Cefepime toxicity, or metabolic disturbances were likely etiology. However, given immunocompromised state, plan to continue to pursue LP and further infectious workup. ?? # Recommendations - Discontinue EEG - Lumbar puncture with fluid hold - Continue abx and Acyclovir pending PCR and LP ?? [x]??? Consult service will continue to follow patient. []? Recommendations are above, please page [phone] if further consultation is required. ?? Frances Ward APRN Neurology JESSICA Fellow Neurology Consult #[id number] Associated attestation - Kota Zavala MD - 01/09/2022 3:33 PM EDT Neurology Attending Attestation This patient was seen in conjunction with Frances Ward APRN as part of a shared visit. I have independently interviewed and examined the patient and reviewed the pertinent diagnostic information. I agree with the principal findings documented above. The assessment and plan were formulated in discussionwith me. Pertinent History: EEG nonspecific slowing. MRI unremarkable, both reviewed personally. Pertinent Exam: From report is improving: DS 4-5 today, follows some 2 step complex commands Major issues addressed: Encephalopathy: as yet determined etiology Plan: Agree with LP r/out meningoencephalitis Empiric coverage while awaiting results Kota Zavala MD Manufacturing Associate of Neurology Initial Assessments - Aruna Saunders RN - 01/07/2022 3:29 PM EDT Office of Care Management Initial Assessment Aruna Saunders RN reviewed record and discussed patient with Care Team. Source of Information: Team, bedside nurse, medical record, and Chart Review Reason for Hospitalization: lethargy, worsening pneumonia. Covid Vaccination Status: (need to assess) Last COVID test: Lab Results Component Value Date COVID19 Not Detected 10/19/2021 [id number] Not Detected 01/06/2022 Past medical History: Past Medical History: Diagnosis Date ??? AML (acute myeloblastic leukemia) 04/2021 ??? BPH (benign prostatic hyperplasia) ??? GERD (gastroesophageal reflux disease) ??? Paroxysmal atrial fibrillation ??? 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 Hospitalizations Within the Past 30 Days: current reason for admission unrelated to previous admission Current Decision-Making Capacity: Self Advance Care Planning: Attempt Cardiopulmonary Resuscitation - Inpatient Received -Advanced Directive: Yes, on file Who is your DPOA-HC?: Other (see comment) (friend Lety Lopez). Current Coping/Education/Information Needs: patient is disoriented, will need frequent checks Current Functional Ability: Assistive Equipment and Assistive Person Functional Status Prior to Admission: Independent Prior ADLs & IADLs: Independent with all ADLs & IADLs Home Environment: Others in the home: significant other, pet(s) (ARSENIO Nielsen and 2 cats). Current Living Arrangements: home/apartment/condo. Accessibility Concerns:3 NINFA mainly on one level. Resource / Environmental Concerns: Resource/Environmental Concerns: none Home Accessibility Concerns: stairs to enter home Current DME: unable to assess Home Address listed as: [address] [facility] [address] Social & Family Supports: All names listed below confirmed with patient as current and correct Extended Emergency Contact Information Primary Emergency Contact: CHRISSY ENCINAS Address: [address] [place] [address] [facility] [place] Relation: Life Partner Secondary Emergency Contact: LETY LOPEZ Address: [address] [place], [place] [id number] [place] [address] Mobile Relation: Friend Mother: Mary Springer Mobile Current Care Provided by: self Provides Primary Care For: no one Caregiver if needed: significant other Quality of Family relationships: helpful, involved, supportive Community Resources being provided currently: none Behavioral Health History: None noted per chart review Substance Use/Abuse listed: Social History Tobacco Use Smoking Status Never Smoker Smokeless Tobacco Never Used 0 No problems reported 1-2 Low level 3-5 Moderate level 6-8 Substantial level 9- 10 Severe level 0 to 7 points: Low risk 8 to 15 points: Medium risk 16 to 19 points: High risk 20 to 40 points: Addiction likely Other Pertinent/Service Specific Information: n/a Health/Prescription Coverage: Primary Insurance: [place] Payor: [place] / Plan: [place] / Product Type: *No Product type* / Secondary Insurance: N/A Prescription Coverage: Yes Preferred Pharmacy: [id number] - [place], [place] - [address] AT [address] [facility] [address] [facility] [phone] [facility] [place], [place] - [facility] [address] [facility] [address] [facility] [address] [facility] [address] [facility] [address] [facility] [address] [id number] - [place], [place] - [address] [facility] [address] [id number] - [place], [place] - [address] AT [address] OF [facility] [address] S[address] [facility] [phone] [facility] [id number] - [place], [place] - [address] [facility] [address] [facility] [address] [place] [id number] [facility] - [place], [place] - [address] [facility] [address] Status: Patient is a : No Primary Care Provider: LEISA Munguia [phone] Patient/Caregiver Goals of Treatment: return home Potential Needs for Transition of Care: home health care Agency Referrals: Not Applicable Transportation: no concerns Transportation Anticipated: family or friend will provide Concerns to be Addressed: no discharge needs identified Assessment: Patient is admitted to hematology/oncology service for lethargy and presumed pneumonia. Plan: Watch for VNA needs at discharge A member of the Care Management team will continue to monitor progress, follow for continuity of care and assist with transition of care planning. Aruna Saunders RN, BSN, IRVING Sleeve Setter Safety Stitch Pager [phone] Consult Note - Otilia Soriano - 01/07/2022 11:24 AM EDTSummary: Medical Student Note Neurology Consult Note Patient name:Herber Iverson Jr. Date of :1960 Admit date: 01/06/2022 Attending: CC: VERONIKA We have been asked to see Herber Iverson Jr. by Dr. Modi (from heme/onc) for evaluation of encephalopathy. HPI: Herber Iverson Jr. is a 61 y.o. with a PMHx of AML s/p allogenic stem cell transplant (+77 days) who presented to OSH with AMS and unresponsiveness and admitted for dehydration and acute on chronic CKD. He was transferred to for worsening lethargy in the setting of pneumonia treated with cefepime. On arrival, he was fluid rescucitated and his symptoms improved, on 01/04 he developed a fever to 38.7 with associated fatigue, XR showed evidence of pneumonia. He was started on cefepime, not neutropenic. On 01/05 he was noted to be less alert and oriented with decreased PO intake. He did not recognized his family. Was noted to have a nonspecific rash, abx broadened to vancomycin. On 01/06 he at [facility] he was mute and did not speak, swinging at staff. He was switched from cefepime to zosyn. Today (01/07), Mr. Iverson was improved from yesterday per his partner, Chai. He was able to respond to questions in short 1-2 word answers and was able to follow commands. When we returned in the afternoon, he had worsened and was not able to answer questions or follow commands. Past Medical History: Past Medical History: Diagnosis Date ??? AML (acute myeloblastic leukemia) 04/2021 ??? BPH (benign prostatic hyperplasia) ??? GERD (gastroesophageal reflux disease) ??? Paroxysmal atrial fibrillation ??? 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 Medications: Colostomy Belt, Ostomy Supplies, acyclovir, aspirin, dronabinoL, flecainide, fluconazole, lidocaine-prilocaine, loperamide, magnesium oxide, metoprolol tartrate, ondansetron, pantoprazole EC, predniSONE, rosuvastatin, tacrolimus, tamsulosin, and vancomycin Allergies: Allergies Allergen Reactions ??? Other [Unclassified Drug] Other (See Comments) Artificial Sweetners-lightheadedness, dizziness ??? Bactoshield Chg [Chlorhexidine Gluconate] Itching and Rash CHG wipes reported he gets a rash and is itchy. Family history: Family History Problem Relation Age of Onset ??? 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 Lives with girlfriend in [place], [place]. . No biologic children. Review of systems: Unable to obtain Physical Exam: Vitals: Temp: [36.5 ??C (97.7 ??F)-37.9 ??C (100.2 ??F)] Heart Rate: -- Resp: [18-30] BP: (133-145)/(70-92) SpO2: [97 %-98 %] Heart Rate from SpO2: [87 bpm-120 bpm] Neuro: MS: Initially oriented to self only, not oriented to location, date, year. Repeated 1 of 4 numbers. CN: PERRL, saccadic disruptions on horizontal gaze, no facial asymmetry, hearing intact to whisper, palate elevates symmetrically, tongue protrudes midline, SCM and trap strength intact. Motor: Normal bulk and tone. Briskly lifts legs off bed. Symmetric senior water/wastewater engineer strength bilaterally. Tremor/rigors present in trunk and shoulders bilaterally. Sensation: Grossly intact to light touch. Reflexes: 2+ DTRs, withdrew foot when assessing babinski. Coordination: Finger to nose intact. Gait: unable to assess Labs: Recent Results (from the past 24 hour(s)) COVID-19 PCR Specimen: Nasopharyngeal Swab Symptoms->Surveillance Result Value Ref Range SARS-CoV-2 RNA PCR Not Detected Not Detected SARS-CoV-2 Source JUDICIAL ASSISTANT Swab Basic Metabolic Panel (non-fasting) Result Value Ref Range Glucose Lvl 115 65 - 199 mg/dL BUN 23 (H) 10 - 20 mg/dL Creatinine 1.37 0.80 - 1.50 mg/dL Sodium 140 135 - 145 mmol/L Potassium 3.2 (L) 3.5 - 5.0 mmol/L Chloride 108 (H) 98 - 107 mmol/L CO2 17 (L) 22 - 31 mmol/L Anion Gap 15 5 - 15 mmol/L Calcium 8.9 8.5 - 10.5 mg/dL Estimated GFR 55 (L) >=60 mL/min/1.73 m?? Magnesium Result Value Ref Range Magnesium 0.52 (L) 0.69 - 1.07 mmol/L Phosphorus Result Value Ref Range Phosphorus 2.5 2.5 - 4.5 mg/dL Hepatic Function Panel Result Value Ref Range Total Protein 5.6 (L) 6.1 - 8.0 g/dL Albumin 2.8 (L) 3.2 - 5.2 g/dL AST 17 0 - 39 unit/L ALT 10 0 - 55 unit/L Alk Phos 104 40 - 130 unit/L Total Bilirubin 0.6 0.2 - 1.3 mg/dL Bili, Direct 0.1 0.0 - 0.3 mg/dL Tacrolimus level Result Value Ref Range Tacrolimus Lvl 2.7 ng/mL Hemogram Result Value Ref Range WBC 9.4 4.0 - 9.5 x10(3)/mcL RBC 2.39 (L) 4.58 - 5.54 x10(6)/mcL Hemoglobin 8.3 (L) 13.7 - 16.5 g/dL Hematocrit 23.8 (L) 40.5 - 48.5 % MCV 99.6 (H) 82.9 - 93.1 fL MCH 34.7 (H) 27.5 - 32.1 pg MCHC 34.9 32.0 - 35.7 g/dL Platelets 57 (L) 145 - 357 x10(3)/mcL RDWSD 60.3 (H) 36.0 - 45.0 fL RDWCV 16.6 (H) 11.4 - 13.8 % MPV 11.9 7.6 - 12.9 fL nRBC % Auto 0.0 % nRBC Abs Auto 0.000 0.000 - 0.000 x10(3)/mcL Differential, Automated Result Value Ref Range Neutrophils % 92.1 % Neutr Abs (ANC) 8.69 (H) 1.70 - 6.10 x10(3)/mcL Lymphocytes % 2.1 % Lymphocytes Abs 0.2 (L) 0.9 - 3.2 x10(3)/mcL Monocytes % 3.7 % Monocyte Abs 0.4 0.3 - 0.9 x10(3)/mcL Eosinophils % 1.1 % Eosinophils Abs 0.1 0.0 - 0.4 x10(3)/mcL Basophils % 0.0 % Basophils Abs 0.0 0.0 - 0.1 x10(3)/mcL Immature Gran % 1.00 % Zara Gran Abs 0.09 (H) 0.00 - 0.04 x10(3)/mcL Urinalysis with reflex Culture Specimen: Indwelling Catheter Urine Result Value Ref Range Glucose UA Negative Negative mg/dL Protein UA 30 (A) Negative mg/dL Bilirubin UA Negative Negative mg/dL Urobilinogen UA 0.2 Normal mg/dL pH UA 6.0 5.0 - 8.0 Blood UA Large (A) Negative mg/dL Ketones UA 15 (A) Negative mg/dL Nitrite UA Negative Negative Leukocytes UA Negative Negative mcL Appearance UA Clear Clear Spec [place] UA 1.025 1.005 - 1.030 Color UA Yellow Culture Reflexed No Urinalysis Microscopic Exam Result Value Ref Range RBC UA 5 (H) 0 - 3 /HPF WBC UA 2 0 - 3 /HPF Bacteria UA Few (A) None /HPF Squam Epith UA 1 <=4 /HPF Hyaline Cast UA 1 0 - 2 /LPF Basic Metabolic Panel (non-fasting) Result Value Ref Range Glucose Lvl 112 65 - 199 mg/dL BUN 21 (H) 10 - 20 mg/dL Creatinine 1.18 0.80 - 1.50 mg/dL Sodium 139 135 - 145 mmol/L Potassium 3.0 (CRIT) 3.5 - 5.0 mmol/L Chloride 108 (H) 98 - 107 mmol/L CO2 17 (L) 22 - 31 mmol/L Anion Gap 14 5 - 15 mmol/L Calcium 8.7 8.5 - 10.5 mg/dL Estimated GFR 66 >=60 mL/min/1.73 m?? Magnesium Result Value Ref Range Magnesium 0.79 0.69 - 1.07 mmol/L Phosphorus Result Value Ref Range Phosphorus 2.2 (L) 2.5 - 4.5 mg/dL Hemogram Result Value Ref Range WBC 8.9 4.0 - 9.5 x10(3)/mcL RBC 2.29 (L) 4.58 - 5.54 x10(6)/mcL Hemoglobin 7.7 (L) 13.7 - 16.5 g/dL Hematocrit 22.8 (L) 40.5 - 48.5 % MCV 99.6 (H) 82.9 - 93.1 fL MCH 33.6 (H) 27.5 - 32.1 pg MCHC 33.8 32.0 - 35.7 g/dL Platelets 52 (L) 145 - 357 x10(3)/mcL RDWSD 61.5 (H) 36.0 - 45.0 fL RDWCV 16.9 (H) 11.4 - 13.8 % MPV 12.4 7.6 - 12.9 fL nRBC % Auto 0.0 % nRBC Abs Auto 0.000 0.000 - 0.000 x10(3)/mcL Differential, Automated Result Value Ref Range Neutrophils % 91.6 % Neutr Abs (ANC) 8.13 (H) 1.70 - 6.10 x10(3)/mcL Lymphocytes % 2.3 % Lymphocytes Abs 0.2 (L) 0.9 - 3.2 x10(3)/mcL Monocytes % 3.5 % Monocyte Abs 0.3 0.3 - 0.9 x10(3)/mcL Eosinophils % 1.7 % Eosinophils Abs 0.2 0.0 - 0.4 x10(3)/mcL Basophils % 0.1 % Basophils Abs 0.0 0.0 - 0.1 x10(3)/mcL Immature Gran % 0.80 % Zara Gran Abs 0.07 (H) 0.00 - 0.04 x10(3)/mcL Diagnostic Tests and Imaging: CT head without contrast: No acute intracranial abnormality. Assessment: Mr. Iverson is a 61 yo with a PMHs of AML s/p allogenic stem cell transplant who presentedfrom OSH for management of lethargy and AMS in the setting of pneumonia. His encephalopathy appeared slightly improved on initial visit but in the afternoon he had worsened.Given his immunosuppressed state, there is a possibility for a bacterial or viral encephalitis or meningitis that warrants further workup and broadening of antibiotics. It is possible that his encephalo rob was caused by Cefepime use (now switched to zosyn) but less likely given the short duration ofdosing. On initial presentation at OSH with STACIE, he was found to have tacrolimus toxicity which could have contributed to his encephalopathy at that time but his levels have since normalized. His presen tation could be secondary to infection from his pneumonia, but given his worsening this afternoon itseems that his encephalopathic presentation is not resolving with treatment of pneumonia. On the differential is graft vs. Host disease in the setting of his recent allogenic stem cell transplant (he was given 1 dose of decadron) as well as post-ictal state following seizure. He has some tremor/rigorous movements of the trunk and arms that could be secondary to fever/chills but warrant further evaluation. CT findings did not suggest stroke or intracranial pathology. Given his worsening, recommend continuous EEG monitoring to r/o seizures, LP to evaluated 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 COORDINATOR infection, graft vs host, brain MRI, broadening infectious treatment in the setting of immunosuppression. Recommendations: # Encephalopathy - Continuous EEG monitoring - Lumbar puncture - Brain MRI - Continue zosyn - Add ceftriaxone, ampicillin, acyclovir for possible 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 COORDINATOR infection Medical Student Note Otilia Soriano MS4 01/07/2022 Consult Note - Álvaro Mcintosh RN - 01/07/2022 10:59 AM EDT Images from the original note were not included. Certified Wound Care Nurse Note Situation: Asked to see Herber Iverson Jr. by nursing for ?GVHD rash, irritated skin at scrotum, incontinent. Background: eD-H notes reviewed for history, admitting diagnosis and active problem list. 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 He presented to an OSH with AMS??and unresponsiveness??at the beginning of this week??and admitted for??dehydration and acute??on chronic??CKD. He was fluid resucitated and his symptoms improved. On 01/04 Mr. Iverson developed??a fever to 38.7C with associated fatigue. Work up with imaging showed XR evidenceof PNA. He was started on cefepime given his hx of transplant, he was not neutropenic. ?? 01/05, patient was noted to be less alert and not oriented, with decreased PO, did not recognize family. Still with fevers to??37.9 earlier today. Exam per OSH he can respond briefly with yes/no noddingbut was very lethargic and unable to sustain attention, new nonspecific rash noted. Antibiotics werebroadened to vancomycin. Vital signs: BP 106/70, HR 100, T 37.9. Patient seen in H123, RN at bedside; SO at bedside, reports patient has not had his nails trimmed claire long time due to illness. Introduced self; explained reason for visit/consultation. . Wound Assessment and Care Provided: Patient lying on his right side; BUE with antecubital erosions over area ~2 cm x 2 cm; no drainage; no erythema. While on his right side thoracic spine was assessed for erythematous rash, no open ulcerations, lesions, or sloughing skin. Sacral dressing peeled back, sacrococcygeal region is skin tone, blanchable and intact; sacral dressing re-applied. Toe nails were visualized at the left foot; they are overgrown and starting to curl into the superior aspect of the toe. RN reports scrotum with scant areas of dry skin at this time. Yanick Score: 12 Last Pressure Ulcer Prevention assessment: Shift Pressure Injury Prevention Occiput: No Injury Thoracic Spine: No Injury Sacral: No Injury Ischial - left: No Injury Ischial - right: No Injury Heel - left: No Injury Heel - right: No Injury Elbow - left: Redness, Blanchable Elbow - right: Redness, Blanchable Device Sites: O2 sat monitor, IV sites Nutritional Status Wt Readings from Last 1 Encounters: 01/07/22 80.1 kg (176 lb 9.4 oz) Body mass index is 25.86 kg/m??. 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 Wound Care Recommendations: Dermatology consult? Mepilex Border Sacrum dressing to sacrum-Assess beneath the dressing daily and reapply, sealing edges with skin prep. Change every 3 days and PRN: 1. Cleanse skin with dermal wound cleanser. 2. Apply Mepilex Border Sacrum dressing making sure to apply directly against the skin. 3. Seal edges with skin prep. If the Mepilex Border Sacrum needs to be changed more than once a day due to soiling then discontinue and use shield barrier wipes and apply Criticaid Ointment to denuded skin Moisture: Follow a bowel and bladder schedule for incontinent patients and document. Cleanse skin gently after each incontinence episode with Shield Barrier wipes. Apply Criticaid Ointment to denuded perineal skin bid and prn. Consider use of a fecal incontinence containment device. Assess skin for fungal infections, notify provider. Use disposable air pads (white chux) to maintain dry skin and prevent fungal infections. Avoid adult diapers except when patient is out of bed to ambulate or in a chair. Place InterDry Ag in a single layer into skin folds, making sure that 2 inches of the fabric extendsout beyond the skin fold to the air Wound Care will complete the consult. Discussed plan with: /CAROL/PA: Jona HERRERA: Martha Please contact Álvaro Mcintosh RN, CWCN on pager [phone] or the wound care team at [phone] or pager [phone] with skin and wound care concerns or questions. Electronically Signed By: Álvaro Mcintosh RN, CWCN Consult Note - Reyna Teague RN - 01/07/2022 10:10 AM EDT Inpatient Ostomy Progress Note Surgery/Date: 05/28/21??Procedure(s) (LRB): @ILEOSTOMY OR JEJUNOSTOMY, NON TUBE (WRVU 17.59) (N/A) @EXPLORATORY LAPAROTOMY, REOPENING OF RECENT (WRVU 17.63) (N/A)?? Admitted from 10/15/21-11/18/21 for a MUD allo HSCT. Admitted on 01/06 as a transfer from OSH for worsening lethargy in the setting of presumed pneumonia being treated with cefapime. Diagnosis: C.diff colitis. Surgeon: Dr. Lety Walter. Pouching System: Removed leaking Coloplast 2-piece click system with flat wafer & replaced with Coloplast one-piece convex high output (HO) pouch #[id number] with ring and barrier strips. I hooked the HO pouch up to a cha bag. Stoma Appearance: Red, moist, protrudes, oval. Peristomal Skin: Healthy & intact. Ostomy Output: Thin liquid stool. Today's visit, teaching and recommendations: Ostomy team was consulted to see pt for a leaking ostomy pouch. Ostomy team is familiar with Herber from previous inpatient & outpatient visit. I re-introduced myself as I'm not sure he recognized me. I used similar supplies to those he uses a home; but placed HO pouch due to pt's thin liquid stool. Left a small green supply bag with 3 spare Coloplast soft convex drainable pouches #[id number], 2 spare adapt rings, and 4 spare barrier strips. Will follow. JOHNNIE Perera, RN, CWOCN 01/07/2022 Enterostomal Therapy Team Pager #[phone] Consult Note - Jassi Paula MD - 01/07/2022 9:19 AM EDT Neurology Consultation Note - 01/07/2022 Patient name: Herber Iverson Jr. Date of : 1960 PCP: LEISA Munguia Primary Team #: Hematology CC: Encephalopathy HPI: Herber Iverson Jr. is a 61 y.o. 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 Neurology is consulted for ongoing encephalopathy. Herber's girlfriend Chai is present in the room to assist with history. She reports that her was taken to the ED 9 days ago with dehydration manifesting as confusion. He was found to have STACIE on CKD andtacrolimus toxicity. With IVF he is reported to have improvement and disposition planning was ongoing for discharge when he developed fever of 38.7 on 01/04. CXR showed evidence of PNA for which he was strated on cefepime. The following day he is reported to have been less alert and not oriented. A new nonspecific rash was noted and vancomycin was added. He was transferred to [facility] Hematology overnight for further workup.On arrival Cefepime was stopped and Zosyn was started for HAP. Per his girlfriend at bedside he has significantly improved at the time of this interview. He denies headaches or pains. Denies fevers or chills. Last fever 01/05 - 37.9 Current Medications: Scheduled Meds: ??? vancomycin 1,250 mg Intravenous Q18H ??? fluconazole 400 mg Intravenous Nightly ??? magnesium sulfate 2 g Intravenous Q2H ??? potassium chloride 20 mEq Intravenous Once ??? cefTRIAXone 2 g Intravenous Q12H ??? ampicillin 2 g Intravenous Q4H PIERCE ??? acyclovir 10 mg/kg/dose (Adjusted) Intravenous Q8H ??? sodium chloride 0.9 % (flush) 5 mL Intravenous BID ??? enoxaparin 40 mg Subcutaneous Nightly ??? tacrolimus 0.17 mg Intravenous 2 times per day ??? methylPREDNISolone sodium succinate 24 mg Intravenous Daily Continuous Infusions: ??? sodium chloride 0.9% 100 mL/hr (01/07/22 0925) PRN Meds:.sodium chloride 0.9 % (flush), lidocaine, [COMPLETED] vancomycin AND Vancomycin Level - MAR Order Reminder Past Medical & Surgical History: Past Medical History: Diagnosis Date ??? AML (acute myeloblastic leukemia) 04/2021 ??? BPH (benign prostatic hyperplasia) ??? GERD (gastroesophageal reflux disease) ??? Paroxysmal atrial fibrillation ??? 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 ACHILLES TENDON SURGERY ??? IR LINE OR TUBE REMOVAL IN RECOVERY ROOM 11/05/2021 IR Line or Tube Removal in Recovery Room 11/05/2021 Kelli Diaz PA [facility] INTERVENTIONL RAD ??? IR MEDIPORT PLACEMENT 10/04/2021 IR Mediport Placement 10/04/2021 Kelli Diaz PA [facility] INTERVENTIONL RAD ??? IR TUNNELED CENTRAL VENOUS ACCESS NON-DIALYSIS 10/15/2021 IR Tunneled Central Venous Access Non-Dialysis 10/15/2021 Kelli Diaz PA [facility] INTERVENTIONL RAD ? ? PRO DIAGNOSTIC BONE MARROW BIOPSIES & ASPIRATIONS Right 09/12/2021 ([facility]) BONE MARROW BIOPSY AND ASPIRATION; DIAGNOSTIC performed by Parviz Modi MD [facility] OSC ? ? PRO DIAGNOSTIC BONE MARROW BIOPSIES & ASPIRATIONS N/A 10/07/2021 ([facility]) BONE MARROW BIOPSY AND ASPIRATION; DIAGNOSTIC performed by Parviz Modi MD [facility] ? ? PRO DIAGNOSTIC BONE MARROW BIOPSIES & ASPIRATIONS Left 12/23/2021 ([facility]) BONE MARROW BIOPSY AND ASPIRATION; DIAGNOSTIC performed by Parviz Modi MD [facility] ??? PRO EXPLORATORY OF ABDOMEN Midline 05/26/2021 @EXPLORATORY LAPAROTOMY, WITH/WITHOUT BIOPSY(S) (WRVU 12.54) performed by Mona Hernandes MD [facility] MAIN OR ??? PRO ILEOSTOMY/JEJUNOSTOMY, NONTUBE N/A 05/28/2021 @ILEOSTOMY OR JEJUNOSTOMY, NON TUBE (WRVU 17.59) performed by Lety Walter MD at [facility] MAIN OR ??? PRO REOPEN RECENT ABD EXPLORATORY N/A 05/28/2021 @EXPLORATORY LAPAROTOMY, REOPENING OF RECENT (WRVU 17.63) performed by Lety Walter MD at [facility] MAIN OR ??? TONSILLECTOMY AND ADENOIDECTOMY ??? XR FLUORO GUIDED LUMBAR PUNCTURE N/A 07/12/2021 XR Fluoro Guided Lumbar Puncture 07/12/2021 Frances Green MD [facility] RAD XRAY ??? XR FLUORO GUIDED LUMBAR PUNCTURE FOR IT CHEMOTHERAPY N/A 07/16/2021 XR Fluoro Guided Lumbar Puncture For IT Chemotherapy 07/16/2021 Nas Patino MD [facility] RAD XRAY ??? XR FLUORO GUIDED LUMBAR PUNCTURE FOR IT CHEMOTHERAPY N/A 07/19/2021 XR Fluoro Guided Lumbar Puncture For IT Chemotherapy 07/19/2021 Shae Alford MD [facility] RAD XRAY ??? XR FLUORO GUIDED LUMBAR PUNCTURE FOR IT CHEMOTHERAPY N/A 07/25/2021 XR Fluoro Guided Lumbar Puncture For IT Chemotherapy 07/25/2021 Nas Patino MD [facility] RAD XRAY ??? XR FLUORO GUIDED LUMBAR PUNCTURE FOR IT CHEMOTHERAPY N/A 07/29/2021 XR Fluoro Guided Lumbar Puncture For IT Chemotherapy 07/29/2021 [facility] RAD XRAY ??? XR FLUORO GUIDED LUMBAR PUNCTURE FOR IT CHEMOTHERAPY N/A 08/05/2021 XR Fluoro Guided Lumbar Puncture For IT Chemotherapy 08/05/2021 Nas Patino MD [facility] RAD XRAY ??? XR FLUORO GUIDED LUMBAR PUNCTURE FOR IT CHEMOTHERAPY N/A 08/01/2021 XR Fluoro Guided Lumbar Puncture For IT Chemotherapy 08/01/2021 Yolette Solano, BOILER WATER TESTER [facility] RAD XRAY ??? XR FLUORO GUIDED LUMBAR PUNCTURE FOR IT CHEMOTHERAPY N/A 07/22/2021 XR Fluoro Guided Lumbar Puncture For IT Chemotherapy 07/22/2021 [facility] RAD XRAY ??? XR FLUORO GUIDED LUMBAR PUNCTURE FOR IT CHEMOTHERAPY N/A 08/12/2021 XR Fluoro Guided Lumbar Puncture For IT Chemotherapy 08/12/2021 Jona Lowry MD [facility] RAD XRAY ??? XR FLUORO GUIDED LUMBAR PUNCTURE FOR IT CHEMOTHERAPY N/A 08/26/2021 XR Fluoro Guided Lumbar Puncture For IT Chemotherapy 08/26/2021 Yolette Solano, BOILER WATER TESTER [facility] RAD XRAY ??? XR FLUORO GUIDED LUMBAR PUNCTURE FOR IT CHEMOTHERAPY N/A 09/05/2021 XR Fluoro Guided Lumbar Puncture For IT Chemotherapy 09/05/2021 Yolette Solano, HEYDI [facility] RAD XRAY ??? XR FLUORO GUIDED LUMBAR PUNCTURE FOR IT CHEMOTHERAPY N/A 09/09/2021 XR Fluoro Guided Lumbar Puncture For IT Chemotherapy 09/09/2021 Yolette Solano, HEYDI [facility] RAD XRAY ??? XR FLUORO GUIDED LUMBAR PUNCTURE FOR IT CHEMOTHERAPY N/A 09/27/2021 XR Fluoro Guided Lumbar Puncture For IT Chemotherapy 09/27/2021 Yolette Solano, HEYDI [facility] RAD XRAY Home Medications: No current facility-administered medications on file prior to encounter. Current Outpatient Medications on File Prior to Encounter Medication Sig Dispense Refill ??? predniSONE (Deltasone) 10 mg Tablet Take 3 tablets by mouth every morning. Take with food. 90 tablet 2 ??? [] clotrimazole (Mycelex) 10 mg Will Take 1 tablet by mouth 5 times daily for 14 days. 70 tablet 1 ??? dronabinoL (Marinol) 5 mg Capsule Take 1 capsule by mouth 2 times daily. (Patient not taking: Nosig reported) 28 capsule 0 ??? Colostomy Belt (Ostomy Belt Medium) [facility] Dispense 1 Sensura Ossian Belt #[id number] per month. 1 each ??? fluconazole (Diflucan) 200 mg Tablet Take 1 tablet by mouth daily. ??? magnesium oxide (Mag-Ox) 400 mg (241.3 mg magnesium) Tablet Take 1 tablet by mouth 3 times daily. 90 tablet 3 ??? acyclovir (ZOVIRAX) 200 mg Capsule Take 4 capsules by mouth 2 times daily. 240 capsule 3 ??? loperamide (Imodium A-D) 2 mg Capsule Take 1 capsule by mouth 3 times daily. 90 tablet 1 ??? tacrolimus (Prograf) 0.5 mg Capsule Take 1 capsule by mouth 2 times daily. 60 capsule 3 ??? metoprolol tartrate (Lopressor) 25 mg Tablet Take 1 tablet by mouth daily. 30 tablet 5 ??? ondansetron (Zofran) 8 mg Tablet Take 1 tablet by mouth every 8 hours as needed for Nausea. 20 tablet 1 ??? tamsulosin (Flomax) 0.4 mg Capsule Take 1 capsule by mouth daily. 90 tablet 0 ??? flecainide (TAMBOCOR) 50 mg Tablet Take 1 tablet by mouth 2 times daily. 60 tablet 3 ??? vancomycin (Vancocin) 125 mg Capsule Take 1 capsule by mouth 2 times daily. 60 capsule 5 ??? pantoprazole EC (Protonix) 40 mg Tablet, Delayed Release (E.C.) Take 1 tablet by mouth daily. 90tablet 3 ??? rosuvastatin (Crestor) 40 mg Tablet Take 1 tablet by mouth daily. 90 tablet 3 ??? aspirin 81 mg Tablet, Chewable Take 81 mg by mouth daily. 30 tablet 3 ??? lidocaine-prilocaine (EMLA) Cream Apply to mediport approximately 30 minutes prior to access. 30g 0 ??? Ostomy Supplies Misc Dispense 2 boxes ( 10/box) of Adapt Barrier rings #[id number] per month. 20 each 11 ??? Ostomy Supplies Powder Dispense 1 bottle of Adapt stoma powder #[id number] every other month. 28.3 g 5 ??? Ostomy Supplies Misc Dispense 2 boxes (10/box) of Sensura Ossian Soft Convex One-piece Pouch #[id number] month. 20 each 11 ??? Ostomy Supplies Misc Dispense 2 boxes (20/box) of Brava Elastic Barrier strips #[id number] per month. 40 each 11 ??? Ostomy Supplies Misc Dispense 1 box (50/box) of a generic no-sting skin barrier wipe per month. 50 each 11 Allergy: Allergies Allergen Reactions ??? Other [Unclassified Drug] Other (See Comments) Artificial Sweetners-lightheadedness, dizziness ??? Bactoshield Chg [Chlorhexidine Gluconate] Itching and Rash CHG wipes reported he gets a rash and is itchy. Family History: Family History Problem Relation Age of Onset ??? Lung Cancer Father Social History: Social History Socioeconomic History ??? Marital status: Domestic Partner Spouse name: Chai Encinas ??? Number of children: Not on file ??? Years of education: Not on file ??? Highest education level: Not on file Occupational History ??? Occupation: employed at [employer] Tobacco Use ??? Smoking status: Never Smoker ??? Smokeless tobacco: Never Used Vaping Use ??? Vaping Use: Never used Substance and Sexual Activity ??? Alcohol use: Not Currently Comment: 5 drinks/year ??? Drug use: Never ??? Sexual activity: Not on file Other Topics Concern ??? 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 Lives with girlfriend in [place], [place]. . No biologic children. Social Determinants of Health Financial Resource Strain: Not on file Food Insecurity: Not on file Transportation Needs: Not on file Physical Activity: Not on file Housing Stability: Not on file Review of systems: Constitutional: No fevers or chills Eyes: No vision changes, no diplopia, no blurry vision ENT: No rhinorrhea or pharyngitis, no meningismus CV: No chest pain or palpitations Resp: No cough, no shortness of breath GI: Ostomy in place : No dysuria, no incontinence Heme: No bleeding or bruising Endo: No polyuria or cold intolerance Neuro: See HPI Psych: See HPI [x] Review of systems otherwise negative Physical Exam: Vitals: Temp: [36.5 ??C (97.7 ??F)-37.9 ??C (100.2 ??F)] Heart Rate: -- Resp: [18-30] BP: (133-145)/(70-92) SpO2: [97 %-98 %] Heart Rate from SpO2: [84 bpm-120 bpm] Gen: Apparent stated age, well nourished, well developed, awake, alert, NAD Neck: Supple, no meningismus HEENT: MMM CV: RRR Resp: CTAB Ext: No edema. No bony deformity Skin: Diffuse rash noted on both arms and chest Neuro Exam: MS: Awake, alert, oriented to person,no place month or year. Difficulty maintaining attention on tasks, able to spell TABLE. Could not perform digit spans. No dysarthria, decreased verbal output, cooperative with neuro exam though limited by attention CN: Pupils 4mm ERRL, EOMI, visual jacobs full to confrontation Facial sensation intact to light touch, temperature No facial asymmetry Hearing intact to voice Palate elevates symmetrically, tongue protrudes midline SCM and trap strength intact Motor: Normal bulk and tone. No pronator drift. Raises arms and legs of bed without difficulty. Glassine Machine Tender 5/5 b/l. Plantar and dorsiflexion 5/5 b/l. Sensation: Grossly intact to light touch Reflexes: DTRs 2+ R, 2+ L Biceps 2+ R, 2+ L Brachioradialis 2+ R, 2+ L Patellar (brisk) 2+ R, 2+ L Achilles tendon Babinski - R equivocal, L equivocal Coordination: Finger to nose intact, no dysmetria. Unable to participate with rapid alternating movements & finger tapping smooth and symmetric. Tremor noted to b/l upper arms and chest Gait: Deferred Labs: Recent Results (from the past 24 hour(s)) MRSA PCR Specimen: Nasopharyngeal Swab Result Value Ref Range MRSA Result Negative Negative MRSA Interp Negative for methicillin-resistant Staphylococcus aureus (MRSA) This test was performed using the [employer]?? Dx System and the Xpert MRSA Assay. The MRSA target DNA was not detected. The sample processing control and probe check were valid. The performance of this test was determined by the [facility] Molecular Pathology Laboratory. It has been cleared by the U.S. Food and Drug Administration for clinical use. COVID-19 PCR Specimen: Nasopharyngeal Swab Symptoms->Surveillance Result Value Ref Range SARS-CoV-2 RNA PCR Not Detected Not Detected SARS-CoV-2 Source JUDICIAL ASSISTANT Swab Basic Metabolic Panel (non-fasting) Result Value Ref Range Glucose Lvl 115 65 - 199 mg/dL BUN 23 (H) 10 - 20 mg/dL Creatinine 1.37 0.80 - 1.50 mg/dL Sodium 140 135 - 145 mmol/L Potassium 3.2 (L) 3.5 - 5.0 mmol/L Chloride 108 (H) 98 - 107 mmol/L CO2 17 (L) 22 - 31 mmol/L Anion Gap 15 5 - 15 mmol/L Calcium 8.9 8.5 - 10.5 mg/dL Estimated GFR 55 (L) >=60 mL/min/1.73 m?? Magnesium Result Value Ref Range Magnesium 0.52 (L) 0.69 - 1.07 mmol/L Phosphorus Result Value Ref Range Phosphorus 2.5 2.5 - 4.5 mg/dL Hepatic Function Panel Result Value Ref Range Total Protein 5.6 (L) 6.1 - 8.0 g/dL Albumin 2.8 (L) 3.2 - 5.2 g/dL AST 17 0 - 39 unit/L ALT 10 0 - 55 unit/L Alk Phos 104 40 - 130 unit/L Total Bilirubin 0.6 0.2 - 1.3 mg/dL Bili, Direct 0.1 0.0 - 0.3 mg/dL Tacrolimus level Result Value Ref Range Tacrolimus Lvl 2.7 ng/mL Hemogram Result Value Ref Range WBC 9.4 4.0 - 9.5 x10(3)/mcL RBC 2.39 (L) 4.58 - 5.54 x10(6)/mcL Hemoglobin 8.3 (L) 13.7 - 16.5 g/dL Hematocrit 23.8 (L) 40.5 - 48.5 % MCV 99.6 (H) 82.9 - 93.1 fL MCH 34.7 (H) 27.5 - 32.1 pg MCHC 34.9 32.0 - 35.7 g/dL Platelets 57 (L) 145 - 357 x10(3)/mcL RDWSD 60.3 (H) 36.0 - 45.0 fL RDWCV 16.6 (H) 11.4 - 13.8 % MPV 11.9 7.6 - 12.9 fL nRBC % Auto 0.0 % nRBC Abs Auto 0.000 0.000 - 0.000 x10(3)/mcL Differential, Automated Result Value Ref Range Neutrophils % 92.1 % Neutr Abs (ANC) 8.69 (H) 1.70 - 6.10 x10(3)/mcL Lymphocytes % 2.1 % Lymphocytes Abs 0.2 (L) 0.9 - 3.2 x10(3)/mcL Monocytes % 3.7 % Monocyte Abs 0.4 0.3 - 0.9 x10(3)/mcL Eosinophils % 1.1 % Eosinophils Abs 0.1 0.0 - 0.4 x10(3)/mcL Basophils % 0.0 % Basophils Abs 0.0 0.0 - 0.1 x10(3)/mcL Immature Gran % 1.00 % Zara Gran Abs 0.09 (H) 0.00 - 0.04 x10(3)/mcL Urinalysis with reflex Culture Specimen: Indwelling Catheter Urine Result Value Ref Range Glucose UA Negative Negative mg/dL Protein UA 30 (A) Negative mg/dL Bilirubin UA Negative Negative mg/dL Urobilinogen UA 0.2 Normal mg/dL pH UA 6.0 5.0 - 8.0 Blood UA Large (A) Negative mg/dL Ketones UA 15 (A) Negative mg/dL Nitrite UA Negative Negative Leukocytes UA Negative Negative mcL Appearance UA Clear Clear Spec [place] UA 1.025 1.005 - 1.030 Color UA Yellow Culture Reflexed No Urinalysis Microscopic Exam Result Value Ref Range RBC UA 5 (H) 0 - 3 /HPF WBC UA 2 0 - 3 /HPF Bacteria UA Few (A) None /HPF Squam Epith UA 1 <=4 /HPF Hyaline Cast UA 1 0 - 2 /LPF Basic Metabolic Panel (non-fasting) Result Value Ref Range Glucose Lvl 112 65 - 199 mg/dL BUN 21 (H) 10 - 20 mg/dL Creatinine 1.18 0.80 - 1.50 mg/dL Sodium 139 135 - 145 mmol/L Potassium 3.0 (CRIT) 3.5 - 5.0 mmol/L Chloride 108 (H) 98 - 107 mmol/L CO2 17 (L) 22 - 31 mmol/L Anion Gap 14 5 - 15 mmol/L Calcium 8.7 8.5 - 10.5 mg/dL Estimated GFR 66 >=60 mL/min/1.73 m?? Magnesium Result Value Ref Range Magnesium 0.79 0.69 - 1.07 mmol/L Phosphorus Result Value Ref Range Phosphorus 2.2 (L) 2.5 - 4.5 mg/dL Hemogram Result Value Ref Range WBC 8.9 4.0 - 9.5 x10(3)/mcL RBC 2.29 (L) 4.58 - 5.54 x10(6)/mcL Hemoglobin 7.7 (L) 13.7 - 16.5 g/dL Hematocrit 22.8 (L) 40.5 - 48.5 % MCV 99.6 (H) 82.9 - 93.1 fL MCH 33.6 (H) 27.5 - 32.1 pg MCHC 33.8 32.0 - 35.7 g/dL Platelets 52 (L) 145 - 357 x10(3)/mcL RDWSD 61.5 (H) 36.0 - 45.0 fL RDWCV 16.9 (H) 11.4 - 13.8 % MPV 12.4 7.6 - 12.9 fL nRBC % Auto 0.0 % nRBC Abs Auto 0.000 0.000 - 0.000 x10(3)/mcL Differential, Automated Result Value Ref Range Neutrophils % 91.6 % Neutr Abs (ANC) 8.13 (H) 1.70 - 6.10 x10(3)/mcL Lymphocytes % 2.3 % Lymphocytes Abs 0.2 (L) 0.9 - 3.2 x10(3)/mcL Monocytes % 3.5 % Monocyte Abs 0.3 0.3 - 0.9 x10(3)/mcL Eosinophils % 1.7 % Eosinophils Abs 0.2 0.0 - 0.4 x10(3)/mcL Basophils % 0.1 % Basophils Abs 0.0 0.0 - 0.1 x10(3)/mcL Immature Gran % 0.80 % Zara Gran Abs 0.07 (H) 0.00 - 0.04 x10(3)/mcL TSH Masterson Result Value Ref Range TSH 1.37 0.27 - 4.20 mcIU/mL Basic Metabolic Panel (non-fasting) Result Value Ref Range Glucose Lvl 122 65 - 199 mg/dL BUN 20 10 - 20 mg/dL Creatinine 1.14 0.80 - 1.50 mg/dL Sodium 139 135 - 145 mmol/L Potassium 3.8 3.5 - 5.0 mmol/L Chloride 108 (H) 98 - 107 mmol/L CO2 18 (L) 22 - 31 mmol/L Anion Gap 13 5 - 15 mmol/L Calcium 8.6 8.5 - 10.5 mg/dL Estimated GFR 69 >=60 mL/min/1.73 m?? Magnesium Result Value Ref Range Magnesium 0.67 (L) 0.69 - 1.07 mmol/L Diagnostic Tests and Imaging: Results for orders placed or performed during the hospital encounter of 01/06/22 CT Head wo Contrast (Generic) (Exam End: 01/07/2022 4:01 AM) Impression No acute intracranial abnormality. Thank you for letting us participate in the care of this patient. If you are a health care provider and have any questions regarding this report, please contact the number below. For patients who have questions please contact the health child care worker that requested your imaging first. Assessment and Plan: Herber Iverson Jr. is a 61 y.o. 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 Neurology is consulted for ongoing encephalopathy. Herber was transferred with encephalopathy of unclear etiology. On initial examination he was noted tohave continued improvement throughout the morning and was speaking in short sentences, with increased responsiveness. Considering this significant improvement with switching it was thought that Cefepime toxicity was likely etiology. Unforetunately upon reexamination he had regressed and was only able to say 1 word. He was also noted to have brisk reflexes in LE and tremors. Considering immunocompromised state it would be prudent to evaluate the etiology of this encephalopathy further with thorough infectious evaluation including lumbar puncture. GVHD is also on the differential considering recent stem cell transplant. # Recommendations - Continuous EEG - MRI brain wo contrast (can repeat with contrast sequences if abnormality detected considering STACIE) - Lumbar puncture with fluid hold [x] Consult service will continue to follow patient. [] Recommendations are above, please page [phone] if further consultation is required. Jassi Paula MD Neurology # [id number] 01/07/2022 Associated attestation - Padilla Donaldson MD - 01/07/2022 9:44 PM EDT Neurology Attending Attestation: I have seen the patient and reviewed the resident's above history and I agree with the details as written. My physical examination confirms the resident's pertinent findings. The assessment and plan were formulated in discussion with me and I agree with them as documented. Rigors, diaphoretic, nonverbal on exam today. Awake with eyes open but not attending, crossing midline or following any commands.At times resists passive movmeent of muscles, but not spastic. No obvious pain with neck movements or leg extension. Reflexes were brisk with spread seen in the upper extremities and upgoing toes. Although it is possible that his underlying pneumonia which is currently being treat could cause these symtoms. Given his immunosuppressed state and level of encephalopathy and pathologic reflexes I would be concerned for a central etiology (I.e. meningitis/encephalitis) whichi is presenting atypical.I would get a cvEEG given waxing and waning mental status, LP to rule out infection, and MR if LP cannot be performed today. Broaden Abx until LP results. Padilla Donaldson MD [facility] Epilepsy [facility] Department of Neurology Consult Note - Maikel Rdz RPH - 01/07/2022 7:21 AM EDT Clinical Pharmacist Note - Renal Dose Adjustment for Antimicrobials Herber Iverson Jr. (A# [id number]) is being treated with the following antimicrobial agent(s) which require dose adjustment based on current renal function: 1. Fluconazole 200mg IV Q24H The indication for antimicrobial treatment is: Antifungal prophylaxis post HSCT Pharmacokinetic information: Height: Ht Readings from Last 1 Encounters: 01/06/22 176 cm (5' 9.29) Weight: Wt Readings from Last 1 Encounters: 01/07/22 80.1 kg (176 lb 9.4 oz) Body mass index is 25.86 kg/m??. Estimated Creatinine Clearance: 66.4 mL/min (based on SCr of 1.18 mg/dL). Recent Labs 01/07/22 0524 01/06/22 2320 CREATININE 1.18 1.37 BUN 21* 23* I/O Yesterday: 01/06 0701 - 01/07 0700 In: 825.8 [I.V.:27.1] Out: 825 [Urine:425] Recommendations: Based on current renal function assessment, the following change(s) have been made to the patient's antimicrobial regimen: 1. For CrCl >50 mL/min recommend 400mg IV QD We will continue to monitor the patient???s renal function and adjust antimicrobial dosing as needed. Please page the care area pharmacist with any questions you may have. Per P&T approved Renal Dose Adjustment Policy Rashad Rdz PharmD, BCOP Consult Note - Terrell Montalvo RPH - 01/07/2022 1:54 AM EDT Clinical Pharmacist Note - FrancisFD Herber Iverson Jr. [id number] 1960 Herber Iverson Jr. is a 61 y.o. male who is starting antibiotic therapy which includes intravenous vancomycin. Based on a review of the patient???s chart and/or conversation with the patient???s providers vancomycin is being used for empiric coverage of sepsis infection with a targeted goal of 15 - 20 mcg/mL. The following Pharmacokinetic data has been evaluated: Wt Readings from Last 1 Encounters: 01/06/22 81.2 kg (179 lb 0.2 oz) Ht Readings from Last 1 Encounters: 01/06/22 176 cm (5' 9.29) Labs: Creatinine clearance: Creatinine (mg/dL) Date Value 01/06/2022 1.37 Dosing recommendations: ??? Patient presenting with sepsis. Received vancomycin 1000 mg IV x1 from OSH. Will continue vancomycin 1250 mg IV q 18 hours here. No trough scheduled at this time due to variable renal function ??? A full dosing regimen will be ordered upon complete pharmacist consultation to follow. We will continue to monitor the patient as long as he remains on vancomycin therapy. Thank you for this consult and please page the care area pharmacist with any questions you may have. Alternately, during off-hours (9p-7a) you may call [phone] to contact a pharmacist. Terrell Montalvo RPH documented in this encounter Plan of Treatment Upcoming Encounters Date Type Specialty Care Team Description 02/18/2022 Infusion Hematology and Oncology 02/21/2022 Infusion Hematology and Oncology 02/24/2022 Appointment Hematology and Oncology 02/24/2022 Office Visit Hematology and Oncology Parviz Modi MD [facility] DR HEMATOLOGY/[place] [address] Miroslava Pelayo APRN [facility] DR HEMATOLOGY/[place] [address] 02/24/2022 Office Visit Wound Care 02/24/2022 Appointment Hematology and Oncology 02/26/2022 Office Visit Neurology Leni Bustamante MD [facility] NEUROLOGY DEPT. [place], [place] [address] (Wo rk) documented as of this encounter Procedures Procedure Name Priority Date/Time Associated Diagnosis Comme nts HEMOGRAM Routine 01/14/2022 3:20 AM Results f or this EDT procedure are i n the results section. DIFFERENTIAL, Routine 01/14/2022 3:20 AM Results for this AUTOMATED EDT procedure are i n the results section. HC CBC,PLT & AUTO Routine 01/14/2022 3:20 AM DIFF EDT HC PHOSPHORUS, SERUM Routine 01/14/2022 3:20 AM R esults for this EDT procedure are i n the results section. HC MAGNESIUM, SERUM Routine 01/14/2022 3:20 AM Re sults for this EDT procedure are i n the results section. BASIC METABOLIC PANEL Routine 01/14/2022 3:20 AM Results for this (NON-FASTING) EDT procedure are in the results section. HC FK-506 Routine 01/13/2022 9:15 AM Results f or this (TACROLIMUS) EDT procedure are i n the results section. SCAN, PERIPHERAL Routine 01/13/2022 4:30 AM Resul ts for this BLOOD EDT procedure are i n the results section. HEMOGRAM Routine 01/13/2022 4:30 AM Results f or this EDT procedure are i n the results section. DIFFERENTIAL, Routine 01/13/2022 4:30 AM Results for this AUTOMATED EDT procedure are i n the results section. HC CBC,PLT & AUTO Routine 01/13/2022 4:30 AM DIFF EDT HC PHOSPHORUS, SERUM Routine 01/13/2022 4:30 AM R esults for this EDT procedure are i n the results section. HC MAGNESIUM, SERUM Routine 01/13/2022 4:30 AM Re sults for this EDT procedure are i n the results section. BASIC METABOLIC PANEL Routine 01/13/2022 4:30 AM Results for this (NON-FASTING) EDT procedure are in the results section. HEMOGRAM Routine 01/12/2022 4:50 AM Results f or this EDT procedure are i n the results section. DIFFERENTIAL, Routine 01/12/2022 4:50 AM Results for this AUTOMATED EDT procedure are i n the results section. HC CBC,PLT & AUTO Routine 01/12/2022 4:50 AM DIFF EDT HC PHOSPHORUS, SERUM Routine 01/12/2022 4:50 AM R esults for this EDT procedure are i n the results section. HC MAGNESIUM, SERUM Routine 01/12/2022 4:50 AM Re sults for this EDT procedure are i n the results section. BASIC METABOLIC PANEL Routine 01/12/2022 4:50 AM Results for this (NON-FASTING) EDT procedure are in the results section. EKG 12-LEAD Routine 01/11/2022 8:48 AM Paroxysmal atrial Resu lts for this EDT fibrillation procedure are i n the results section. SCAN, PERIPHERAL Routine 01/11/2022 3:45 AM Resul ts for this BLOOD EDT procedure are i n the results section. HEMOGRAM Routine 01/11/2022 3:45 AM Results f or this EDT procedure are i n the results section. DIFFERENTIAL, Routine 01/11/2022 3:45 AM Results for this AUTOMATED EDT procedure are i n the results section. HC CBC,PLT & AUTO Routine 01/11/2022 3:45 AM DIFF EDT HC PHOSPHORUS, SERUM Routine 01/11/2022 3:45 AM R esults for this EDT procedure are i n the results section. HC MAGNESIUM, SERUM Routine 01/11/2022 3:45 AM Re sults for this EDT procedure are i n the results section. BASIC METABOLIC PANEL Routine 01/11/2022 3:45 AM Results for this (NON-FASTING) EDT procedure are in the results section. HC PHOSPHORUS, SERUM Routine 01/10/2022 4:13 PM R esults for this EDT procedure are i n the results section. HC MAGNESIUM, SERUM Routine 01/10/2022 4:13 PM Re sults for this EDT procedure are i n the results section. BASIC METABOLIC PANEL Routine 01/10/2022 4:13 PM Results for this (NON-FASTING) EDT procedure are in the results section. EKG 12-LEAD Routine 01/10/2022 10:32 Paroxysmal atrial Result s for this AM EDT fibrillation procedure are i n the results section. HEMOGRAM Routine 01/10/2022 1:00 AM Results f or this EDT procedure are i n the results section. DIFFERENTIAL, Routine 01/10/2022 1:00 AM Results for this AUTOMATED EDT procedure are i n the results section. HC CBC,PLT & AUTO Routine 01/10/2022 1:00 AM DIFF EDT HC PHOSPHORUS, SERUM Routine 01/10/2022 1:00 AM R esults for this EDT procedure are i n the results section. HC MAGNESIUM, SERUM Routine 01/10/2022 1:00 AM Re sults for this EDT procedure are i n the results section. BASIC METABOLIC PANEL Routine 01/10/2022 1:00 AM Results for this (NON-FASTING) EDT procedure are in the results section. COVID-19 PCR Routine 01/09/2022 1:00 PM Results f or this EDT procedure are i n the results section. HC FK-506 Routine 01/09/2022 9:00 AM Results f or this (TACROLIMUS) EDT procedure are i n the results section. HEMOGRAM Routine 01/09/2022 12:25 Results for this AM EDT procedure are i n the results section. DIFFERENTIAL, Routine 01/09/2022 12:25 Results fo r this AUTOMATED AM EDT procedure are i n the results section. HC CBC,PLT & AUTO Routine 01/09/2022 12:25 DIFF AM EDT HC PHOSPHORUS, SERUM Routine 01/09/2022 12:25 Res ults for this AM EDT procedure are i n the results section. HC MAGNESIUM, SERUM Routine 01/09/2022 12:25 Resu lts for this AM EDT procedure are i n the results section. BASIC METABOLIC PANEL Routine 01/09/2022 12:25 Re sults for this (NON-FASTING) AM EDT procedure are in the results section. HC VANCOMYCIN Timed 01/08/2022 6:25 PM Results for this EDT procedure are i n the results section. XR FLUORO GUIDED Routine 01/08/2022 1:04 PM Resul ts for this LUMBAR PUNCTURE EDT procedure ar e in the results section. HC HERPES SIMPLEX Routine 01/08/2022 11:18 Result s for this VIRUS 1/2 BY PCR AM EDT procedure a re in the results section. BODY FLUID HOLD Routine 01/08/2022 11:18 Results for this AM EDT procedure are i n the results section. FLUID REVIEW REPORT Routine 01/08/2022 11:18 Resu lts for this AM EDT procedure are i n the results section. HC CSF CELL CT W/ Routine 01/08/2022 11:18 DIFFERENTIAL AM EDT CSF CELL COUNT Routine 01/08/2022 11:18 Results [...] the results section. CSF CELL COUNT 2ND Routine 01/08/2022 11:18 Resul ts for this COUNT AM EDT procedure are i n the results section. LEUKEMIA LYMPHOMA Routine 01/08/2022 11:18 Result s for this SCREEN (FORMERLY AM EDT procedure a re in MALIGNANT CELL the results SCREEN) section. HC PCH VARICELLA Routine 01/08/2022 11:18 Results for this ZOSTER PCR AM EDT procedure are i n the results section. HC PCH MO-ENTEROVIRUS Routine 01/08/2022 11:18 Re sults for this AMPLIFIED PROBE AM EDT procedure ar e in the results section. HC CRYPTOCOCCAL Routine 01/08/2022 11:18 Results for this ANTIGEN AM EDT procedure are i n the results section. HC 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 COORDINATOR CULTURE Routine 01/08/2022 11:18 Results f or this AM EDT procedure are i n the results section. HC PROTEIN, CSF Routine 01/08/2022 11:18 Results for this AM EDT procedure are i n the results section. HC GLUCOSE, CSF Routine 01/08/2022 11:18 Results for this AM EDT procedure are i n the results section. HC PROTHROMBIN TIME STAT 01/08/2022 9:15 AM Re sults for this EDT procedure are i n the results section. ZEEG 24 HOUR Routine 01/08/2022 5:00 AM Results f or this MONITORING, PORTABLE EDT procedu re are in the results section. SCAN, PERIPHERAL Routine 01/08/2022 1:35 AM Resul ts for this BLOOD EDT procedure are i n the results section. HEMOGRAM Routine 01/08/2022 1:35 AM Results f or this EDT procedure are i n the results section. DIFFERENTIAL, Routine 01/08/2022 1:35 AM Results for this AUTOMATED EDT procedure are i n the results section. HC CBC,PLT & AUTO Routine 01/08/2022 1:35 AM DIFF EDT HC PHOSPHORUS, SERUM Routine 01/08/2022 1:35 AM R esults for this EDT procedure are i n the results section. HC MAGNESIUM, SERUM Routine 01/08/2022 1:35 AM Re sults for this EDT procedure are i n the results section. BASIC METABOLIC PANEL Routine 01/08/2022 1:35 AM Results for this (NON-FASTING) EDT procedure are in the results section. MRI BRAIN WWO Routine 01/07/2022 9:34 PM Results for this CONTRAST (GENERIC) EDT procedure are in the results section. HC THYROID Routine 01/07/2022 1:40 PM Results f or this STIMULATING HORMONE, EDT procedu re are in SERUM the results section. MAGNESIUM Routine 01/07/2022 1:40 PM Results f or this EDT procedure are i n the results section. BASIC METABOLIC PANEL Routine 01/07/2022 1:40 PM Results for this (NON-FASTING) EDT procedure are in the results section. HEMOGRAM Routine 01/07/2022 5:24 AM Results f or this EDT procedure are i n the results section. DIFFERENTIAL, Routine 01/07/2022 5:24 AM Results for this AUTOMATED EDT procedure are i n the results section. HC CBC,PLT & AUTO Routine 01/07/2022 5:24 AM DIFF EDT HC PHOSPHORUS, SERUM Routine 01/07/2022 5:24 AM R esults for this EDT procedure are i n the results section. HC MAGNESIUM, SERUM Routine 01/07/2022 5:24 AM Re sults for this EDT procedure are i n the results section. BASIC METABOLIC PANEL Routine 01/07/2022 5:24 AM Results for this (NON-FASTING) EDT procedure are in the results section. HC BLOOD CULTURE- STAT 01/07/2022 4:31 AM Resu lts for this EDT procedure are i n the results section. CT HEAD WO CONTRAST Routine 01/07/2022 4:01 AM Re sults for this (GENERIC) EDT procedure are i n the results section. URINALYSIS Routine 01/07/2022 12:13 Results for this MICROSCOPIC EXAM AM EDT procedure a re in the results section. URINALYSIS WITH Routine 01/07/2022 12:13 Results for this REFLEX CULTURE AM EDT procedure are in the results section. HC BLOOD CULTURE- STAT 01/06/2022 11:35 Result s for this PM EDT procedure are i n the results section. HEMOGRAM Routine 01/06/2022 11:20 Results for this PM EDT procedure are i n the results section. DIFFERENTIAL, Routine 01/06/2022 11:20 Results fo r this AUTOMATED PM EDT procedure are i n the results section. HC FK-506 Routine 01/06/2022 11:20 Results for this (TACROLIMUS) PM EDT procedure are i n the results section. HC CBC,PLT & AUTO Routine 01/06/2022 11:20 DIFF PM EDT HC PHOSPHORUS, SERUM Routine 01/06/2022 11:20 Res ults for this PM EDT procedure are i n the results section. HC MAGNESIUM, SERUM Routine 01/06/2022 11:20 Resu lts for this PM EDT procedure are i n the results section. HEPATIC FUNCTION Routine 01/06/2022 11:20 Results for this PANEL PM EDT procedure are i n the results section. BASIC METABOLIC PANEL Routine 01/06/2022 11:20 Re sults for this (NON-FASTING) PM EDT procedure are in the results section. RAPID COVID-19 PCR Routine 01/06/2022 11:10 Resul ts for this ([facility]D/[facility]) PM EDT procedure are in the results section. HC MRSA DETECTION BY Routine 01/06/2022 11:10 Res ults for this PCR PM EDT procedure are i n the results section. documented in this encounter Results (ABNORMAL) Differential, Automated (01/14/2022 3:20 AM EDT) [facility] Method Time Signature Neutrophils % 79.6 % [facility] Neutr Abs (ANC) 4.29 1.70 - [facility] 6.10 [facility] x10(3)/[facility] LABORATORY Lymphocytes % 16.0 % [facility] Lymphocytes Abs 0.9 0.9 - 3.2 [facility] x10(3)/[facility] LABORATORY Monocytes % 2.0 % [facility] Monocyte Abs 0.1 (L) 0.3 - 0.9 [facility] x10(3)/[facility] LABORATORY Eosinophils % 1.1 % [facility] Eosinophils Abs 0.1 0.0 - 0.4 [facility] x10(3)/[facility] LABORATORY Basophils % 0.0 % [facility] Basophils Abs 0.0 0.0 - 0.1 [facility] x10(3)/[facility] LABORATORY Immature Gran % 1.30 % [facility] Comment: Immature granulocytes(IG's)percentage an d absolute count will include metamyelocytes, myelocytes, and promyelo cytes. Blood smears from CBCs yielding IG's will be scanned manually for concor dance. If this scan disagrees with the automated IG or if promyelocytes are not ed, a manual differential will be performed. [facility]ara Gran Abs 0.07 (H) 0.00 - 0.04 x10(3)/[facility] LABORATORY Specimen Anatomical Collection Method Collection Time Receive d Time (Source) Location / / Volume Laterality Blood 01/14/2022 3:20 AM 2 3:37 EDT AM EDT Resulting Agency Comment Spec In Lab Robert Bailey DO HEMATOLOGY ORDERABLES Performing Organization Address City/State/[place] [address] (ABNORMAL) Hemogram (01/14/2022 3:20 AM EDT) [facility] gist Method Time Signature WBC 5.4 4.0 - 9.5 [facility] x10(3)/[facility] LABORATORY RBC 2.29 (L) 4.58 - [facility] 5.54 [facility] x10(6)/[facility] LABORATORY Hemoglobin 7.8 (L) 13.7 - [facility] 16.5 g/dL [facility] LABORATORY Hematocrit 22.6 (L) 40.5 - [facility] 48.5 % [facility]ORATORY MCV 98.7 (H) 82.9 - [place] 93.1 [facility] LABORATORY MCH 34.1 (H) 27.5 - [place] 32.1 pg [facility] LABORATORY MCHC 34.5 32.0 - [place] 35.7 g/dL [facility] Platelets 53 (L) 145 - 357 [place] x10(3)/[facility] LABORATORY RDWSD 54.4 (H) 36.0 - [place] 45.0 [facility] LABORATORY RDWCV 15.3 (H) 11.4 - [place] 13.8 % [facility] LABORATORY MPV 11.6 7.6 - 12.9 [place] [facility] LABORATORY nRBC % Auto 0.9 % [facility] nRBC Abs Auto 0.050 (H) 0.000 - [place] 0.000 [facility] x10(3)/[facility] LABORATORY Specimen Anatomical Collection Method Collection Time Receive d Time (Source) Location / / Volume Laterality Blood 01/14/2022 3:20 AM 2 3:37 EDT AM EDT Resulting Agency Comment Spec In Lab Robert Bailey DO HEMATOLOGY ORDERABLES Performing Organization Address City/[facility]/ZIP Code Phon e Number [address] Phosphorus (01/14/2022 3:20 AM EDT) P athologist Signature Phosphorus 3.6 2.5 - 4.5 [place] mg/dL [facility] LABORATORY Specimen Anatomical Collection Method Collection Time Receive d Time (Source) Location / / Volume Laterality Blood 01/14/2022 3:20 AM 2 3:37 EDT AM EDT Resulting Agency Comment Spec In Lab Moisés Mcgill MD CHEMISTRY ORDERABLES Performing Organization Address City/[facility]/ZIP Code Phon e Number [address] Magnesium (01/14/2022 3:20 AM EDT) P athologist Signature Magnesium 0.77 0.69 - 1.07 [place] mmol/L [facility] LABORATORY Specimen Anatomical Collection Method Collection Time Receive d Time (Source) Location / / Volume Laterality Blood 01/14/2022 3:20 AM 2 3:37 EDT AM EDT Resulting Agency Comment Spec In Lab Moisés Mcgill MD CHEMISTRY ORDERABLES Performing Organization Address City/State/[place] [address] (ABNORMAL) Basic Metabolic Panel (non-fasting) (01/14/2022 3:20 AM EDT) athologist Signature Glucose Lvl 109 65 - 199 [facility] mg/dL [facility] Comment: Diabetes: >=200 mg/dL plus symp toms BUN 38 (H) 10 - 20 mg/dL [facility] Creatinine 1.31 0.80 - 1.50 mg/dL [facility] LABORATORY Sodium 134 (L) 135 - 145 mmol/L [facility]OR[facility] Potassium 5.0 3.5 - 5.0 mmol/L [facility] Comment: Please note: ??Patients with WBC >100,00 0 may have falsely elevated Potassium levels. ??For accurate Potassium quantif ication in these patients send serum separator tube (gold top) for subsequent determinations. ??Contact the Clinical Chemistry Laboratory if there are any qu estions. Chloride 102 98 - 107 mmol/L [facility] CO2 21 (L) 22 - 31 mmol/L [facility] Anion Gap 11 5 - 15 mmol/L [facility] Calcium 8.3 (L) 8.5 - 10.5 mg/dL [facility] Estimated GFR 58 (L) >=60 mL/min/1.73 m?? [facility] Comment: This patient? s estimated [...] Mcgill MD CHEMISTRY ORDERABLES Performing Organization Address City/[facility]/ZIP Code Phon e Number [address] Tacrolimus level (01/13/2022 9:15 AM EDT) P athologist Signature Tacrolimus Lvl 3.8 ng/mL [facility] Comment: Trough therapeutic range is [...] Location / / Volume Laterality Blood 01/13/2022 9:15 AM 2 9:21 EDT AM EDT Resulting Agency Comment Spec In Lab Parviz Modi MD CHEMISTRY ORDERABLES Performing Organization Address City/[facility]/[place] [address] Scan, Peripheral Blood (01/13/2022 4:30 AM EDT) Patholo gist Method Time Signature Plat Estimate Decreased [facility] RBC Morphology Abnormal [facility] Macrocytes 1-5 /HPF [facility] Ovalocytes 1-5 /HPF [facility] Tear Drop Cells 1-5 /HPF [facility] Specimen Anatomical Collection Method Collection Time Receive d Time (Source) Location / / Volume Laterality Blood 01/13/2022 4:30 AM 2 4:41 EDT AM EDT Resulting Agency Comment Spec In Lab Robert Bailey DO HEMATOLOGY ORDERABLES Performing Organization Address City/State/[place] [address] (ABNORMAL) Differential, Automated (01/13/2022 4:30 AM EDT) [facility] Method Time Signature Neutrophils % 80.1 % [facility] Neutr Abs (ANC) 5.07 1.70 - [facility] 6.10 [facility] x10(3)/[facility] LABORATORY Lymphocytes % 14.2 % [facility] Lymphocytes Abs 0.9 0.9 - 3.2 [facility] x10(3)/[facility] LABORATORY Monocytes % 2.2 % [facility] Monocyte Abs 0.1 (L) 0.3 - 0.9 [facility] x10(3)/[facility] LABORATORY Eosinophils % 1.1 % [facility] Eosinophils Abs 0.1 0.0 - 0.4 [facility] x10(3)/[facility] LABORATORY Basophils % 0.2 % [facility] Basophils Abs 0.0 0.0 - 0.1 [facility] x10(3)/[facility] LABORATORY Immature Gran % 2.20 % [facility] Comment: Immature granulocytes(IG's)percentage an d absolute count will include metamyelocytes, myelocytes, and promyelo cytes. Blood smears from CBCs yielding IG's will be scanned manually for concor dance. If this scan disagrees with the automated IG or if promyelocytes are not ed, a manual differential will be performed. [facility] Gran Abs 0.14 (H) 0.00 - 0.04 x10(3)/[facility] LABORATORY Specimen Anatomical Collection Method Collection Time Receive d Time (Source) Location / / Volume Laterality Blood 01/13/2022 4:30 AM 2 4:41 EDT AM EDT Resulting Agency Comment Spec In Lab Robert S Bailey DO HEMATOLOGY ORDERABLES Performing Organization Address City/State/[place] [address] (ABNORMAL) Hemogram (01/13/2022 4:30 AM EDT) Patholo gist Method Time Signature WBC 6.3 4.0 - 9.5 [place] [place] x10(3)/[facility] LABORATORY RBC 2.57 (L) 4.58 - [place] 5.54 [facility] x10(6)/[facility] LABORATORY Hemoglobin 8.7 (L) 13.7 - [facility] 16.5 g/dL [facility] Hematocrit 25.4 (L) 40.5 - [facility] 48.5 % [facility] MCV 98.8 (H) 82.9 - [facility] 93.1 [facility] LABORATORY MCH 33.9 (H) 27.5 - [place] 32.1 pg [facility] LABORATORY MCHC 34.3 32.0 - [place] 35.7 g/dL [facility] LABORATORY Platelets 60 (L) 145 - 357 [facility] LABORATORY RDWSD 55.6 (H) 36.0 - [place] AR[place]EL[place] 45.0 [facility] LABORATORY RDWCV 15.5 (H) 11.4 - [facility] ARASELI 13.8 % [facility] LABORATORY MPV 12.2 7.6 - 12.9 [facility] nRBC % Auto 0.9 % [facility] nRBC Abs Auto 0.060 (H) 0.000 - [place] 0.000 [facility] x10(3)/[facility] LABORATORY Specimen Anatomical Collection Method Collection Time Receive d Time (Source) Location / / Volume Laterality Blood 01/13/2022 4:30 AM 2 4:41 EDT AM EDT Resulting Agency Comment Spec In Lab Robert Bailey DO HEMATOLOGY ORDERABLES Performing Organization Address City/State/[place] [address] Phosphorus (01/13/2022 4:30 AM EDT) P athologist Signature Phosphorus 3.3 2.5 - 4.5 [facility] mg/dL [facility] LABOR[facility]ORY Specimen Anatomical Collection Method Collection Time Receive d Time (Source) Location / / Volume Laterality Blood 01/13/2022 4:30 AM 2 4:41 EDT AM EDT Resulting Agency Comment Spec In Lab Moisés Mcgill MD CHEMISTRY ORDERABLES Performing Organization Address City/[facility]/ZIP Code Phon e Number [address] (ABNORMAL) Magnesium (01/13/2022 4:30 AM EDT) athologist Signature Magnesium 0.66 (L) 0.69 - 1.07 [facility]/L [facility]ORY Specimen Anatomical Collection Method Collection Time Receive d Time (Source) Location / / Volume Laterality Blood 01/13/2022 4:30 AM 2 4:41 EDT AM EDT Resulting Agency Comment Spec In Lab Moisés Mcgill MD CHEMISTRY ORDERABLES Performing Organization Address City/[facility]/[place] [address] (ABNORMAL) Basic Metabolic Panel (non-fasting) (01/13/2022 4:30 AM EDT) athologist Signature Glucose Lvl 103 65 - 199 [facility] mg/dL [facility] Comment: Diabetes: >=200 mg/dL plus symp toms BUN 33 (H) 10 - 20 mg/dL [facility] Creatinine 1.25 0.80 - 1.50 mg/dL [facility] Sodium 134 (L) 135 - 145 mmol/L [facility] Potassium 4.5 3.5 - 5.0 mmol/L [facility] Comment: Please note: ??Patients with WBC >100,00 0 may have falsely elevated Potassium levels. ??For accurate Potassium quantif ication in these patients send serum separator tube (gold top) for subsequent determinations. ??Contact the Clinical Chemistry Laboratory if there are any qu estions. Chloride 101 98 - 107 mmol/L [facility] CO2 20 (L) 22 - 31 mmol/L [facility] Anion Gap 13 5 - 15 mmol/L [facility] Calcium 8.7 8.5 - 10.5 mg/dL [facility] Estimated GFR 62 >=60 mL/min/1.73 m?? [facility] Comment: This patient? s estimated glomerular filtration rate (eGFR) is between 62 mL/min/1.73 m2 (patients with less muscl e mass per kg body weight) and 72 mL/min/1.73 m2 (patients with more muscl e [...] / Volume Laterality Blood 01/13/2022 4:30 AM 4:41 EDT AM EDT Resulting Agency Comment Spec In Lab Moisés Mcgill MD CHEMISTRY ORDERABLES Performing Organization Address City/State/ZIP Code Phon e Number [place] [phone] (ABNORMAL) Differential, Automated (01/12/2022 4:50 AM EDT) [facility] gist Method Time Signature Neutrophils % 83.5 % [facility] LABORATORY Neutr Abs (ANC) 7.37 (H) 1.70 - [facility] 6.10 [facility] x10(3)/[facility] L LABORATORY Lymphocytes % 11.4 % [facility] LABORATORY Lymphocytes Abs 1.0 0.9 - 3.2 [facility] x10(3)/[facility] LABORATORY Monocytes % 1.9 % [facility] LABORATORY Monocyte Abs 0.2 (L) 0.3 - 0.9 [facility] x10(3)/[facility] LABORATORY Eosinophils % 1.1 % [facility] LABORATORY Eosinophils Abs 0.1 0.0 - 0.4 [facility] x10(3)/[facility] LABORATORY Basophils % 0.2 % [facility] LABORATORY Basophils Abs 0.0 0.0 - 0.1 [facility] x10(3)/[facility] LABORATORY Immature Gran % 1.90 % [facility] LABORATORY Comment: Immature granulocytes(IG's)percentage an d absolute count will include metamyelocytes, myelocytes, and promyelo cytes. Blood smears from CBCs yielding IG's will be scanned manually for concor dance. If this scan disagrees with the automated IG or if promyelocytes are not ed, a manual differential will be performed. Zara Gran Abs 0.17 (H) 0.00 - 0.04 x10(3)/[facility] LABORATORY Specimen Anatomical Collection Method Collection Time Receive d Time (Source) Location / / Volume Laterality Blood 01/12/2022 4:50 AM 4:55 EDT AM EDT Resulting Agency Comment Spec In Lab Robert Bailey DO HEMATOLOGY ORDERABLES Performing Organization Address City/State/[place] [address] (ABNORMAL) Hemogram (01/12/2022 4:50 AM EDT) [facility] gist Method Time Signature WBC 8.8 4.0 - 9.5 [facility] x10(3)/[facility] LABORATORY RBC 2.55 (L) 4.58 - [facility] x[facility] LABORATORY Hemoglobin 8.8 (L) 13.7 - [facility]dL [facility] LABORATORY Hematocrit 24.5 (L) 40.5 - [facility] 48.5 % [facility] LABORATORY MCV 96.1 (H) 82.9 - [facility] 93.1 fL [facility] LABORATORY MCH 34.5 (H) 27.5 - [facility] 32.1 pg [facility] LABORATORY MCHC 35.9 (H) 32.0 - [facility] 35.7 g/dL [facility] LABORATORY Platelets 60 (L) 145 - 357 [facility] ARASELI x10(3)/[facility] LABORATORY RDWSD 53.5 (H) 36.0 - JIA MARX 45.0 [facility] LABORATORY RDWCV 15.3 (H) 11.4 - [facility] ARASELI 13.8 % [facility] LABORATORY MPV 12.7 7.6 - 12.9 [facility] LABORATORY nRBC % Auto 0.8 % [facility] LABORATORY nRBC Abs Auto 0.070 (H) 0.000 - [facility]EL[facility] 0.000 [facility] x10(3)/[facility] LABORATORY Specimen Anatomical Collection Method Collection Time Receive d Time (Source) Location / / Volume Laterality Blood 01/12/2022 4:50 AM 2 4:55 EDT AM EDT Resulting Agency Comment Spec In Lab Robert Bailey DO HEMATOLOGY ORDERABLES Performing Organization Address City/State/ZIP Code Phon e Number [address] (ABNORMAL) Phosphorus (01/12/2022 4:50 AM EDT) P athologist Signature Phosphorus 2.0 (L) 2.5 - 4.5 [facility] AR[facility]ELI mg/dL [facility] LABORATORY Specimen Anatomical Collection Method Collection Time Receive d Time (Source) Location / / Volume Laterality Blood 01/12/2022 4:50 AM 2 4:55 EDT AM EDT Resulting Agency Comment Spec In Lab Moisés Mcgill MD CHEMISTRY ORDERABLES Performing Organization Address City/State/ZIP Code Phon e Number [address] Magnesium (01/12/2022 4:50 AM EDT) P athologist Signature Magnesium 0.78 0.69 - 1.07 [facility] AR[facility]ELI mmol/L [facility] LABORATORY Specimen Anatomical Collection Method Collection Time Receive d Time (Source) Location / / Volume Laterality Blood 01/12/2022 4:50 AM 2 4:55 EDT AM EDT Resulting Agency Comment Spec In Lab Moisés Mcgill MD CHEMISTRY ORDERABLES Performing Organization Address City/State/[place] [address] (ABNORMAL) Basic Metabolic Panel (non-fasting) (01/12/2022 4:50 AM EDT) P athologist Signature Glucose Lvl 99 65 - 199 [facility] mg/dL [facility] LABORATORY Comment: Diabetes: >=200 mg/dL plus symp toms BUN 28 (H) 10 - 20 mg/dL [facility] LABORATORY Creatinine 1.08 0.80 - 1.50 mg/dL [facility] LABORATORY Sodium 134 (L) 135 - 145 mmol/L [facility] LABORATORY Potassium 4.7 3.5 - 5.0 mmol/L [facility] LABORATORY Comment: Please note: ??Patients with WBC >100,00 0 may have falsely elevated Potassium levels. ??For accurate Potassium quantif ication in these patients send serum separator tube (gold top) for subsequent determinations. ??Contact the Clinical Chemistry Laboratory if there are any qu estions. Chloride 103 98 - 107 mmol/L [facility] LABORATORY CO2 18 (L) 22 - 31 mmol/L [facility] LABORATORY Anion Gap 13 5 - 15 mmol/L [facility] LABORATORY Calcium 8.8 8.5 - 10.5 mg/dL [facility] LABORATORY Estimated GFR 74 >=60 mL/min/1.73 m?? [facility] LABORATORY Comment: This patient? s estimated glomerular filtration rate (eGFR) is between 74 mL/min/1.73 m2 (patients with less muscl e mass per kg body weight) and 85 mL/min/1.73 m2 (patients with more muscl e [...] (Source) Location / / Volume Laterality Blood 01/12/2022 4:50 AM 2 4:55 EDT AM EDT Resulting Agency Comment Spec In Lab Moisés Mcgill MD CHEMISTRY ORDERABLES Performing Organization Address [facility]/ZIP [facility] [place] [address] EKG 12 Lead (01/11/2022 8:48 AM EDT) Component Value Ref Range Test Analysis Performed Pathologis t Method Time At Signature Ventricular rate 96 BPM MUSE SYSTEM Atrial Rate 96 BPM MUSE SYSTEM P-R Interval 116 ms MUSE SYSTEM QRS Duration 80 ms MUSE SYSTEM Q-T Interval 316 ms MUSE SYSTEM QTC Calculated 399 ms MUSE SYSTEM (Bezet) Calculated P [place] 53 degrees MUSE SYSTEM Calculated R [place] -7 degrees MUSE SYSTEM Calculated T [place] 103 degrees MUSE SYSTEM INTERPRETATION Normal sinus [...] 8:48 AM 2 EDT 12:33 PM EDT Parviz Modi MD ECG ORDERABLES Performing Organization Address [facility] Phon e Number MUSE SYSTEM Scan, Peripheral Blood (01/11/2022 3:45 AM EDT) Patholo gist Method Time Signature Plat Estimate Decreased [facility] LABORATORY RBC Morphology Abnormal [facility] LABORATORY Macrocytes 1-5 /HPF [facility] LABORATORY Ovalocytes 1-5 /HPF [facility] LABORATORY Tear Drop Cells 1-5 /HPF [facility] LABORATORY Specimen Anatomical Collection Method Collection Time Receive d Time (Source) Location / / Volume Laterality Blood 01/11/2022 3:45 AM 2 4:03 EDT AM EDT Resulting Agency Comment Spec In Lab Robert Bailey DO HEMATOLOGY ORDERABLES Performing Organization Address City/[facility]/[place]IP [place] [address] (ABNORMAL) Differential, Automated (01/11/2022 3:45 AM EDT) P athologist Signature Neutrophils % 76.3 % [facility] LABORATORY Neutr Abs (ANC) 5.70 1.70 - [facility] 6.10 [facility] x10(3)/[facility] LABORATORY Lymphocytes % 16.8 % [facility] LABORATORY Lymphocytes Abs 1.3 0.9 - 3.2 [facility] x10(3)/[facility] LABORATORY Monocytes % 3.7 % [facility] LABORATORY Monocyte Abs 0.3 0.3 - 0.9 [facility] x10(3)/[facility] LABORATORY Eosinophils % 1.9 % [facility] LABORATORY Eosinophils Abs 0.1 0.0 - 0.4 [facility] x10(3)/[facility] LABORATORY Basophils % 0.1 % [facility] LABORATORY Basophils Abs 0.0 0.0 - 0.1 [facility] x10(3)/[facility] LABORATORY Immature Gran % 1.20 % [facility] LABORATORY Comment: Immature granulocytes(IG's)percentage an d absolute count will include metamyelocytes, myelocytes, and promyelo cytes. Blood smears from CBCs yielding IG's will be scanned manually for concor dance. If this scan disagrees with the automated IG or if promyelocytes are not ed, a manual differential will be performed. Zara Gran Abs 0.09 (H) 0.00 - 0.04 x10(3)/[facility] LABORATORY Specimen Anatomical Collection Method Collection Time Receive d Time (Source) Location / / Volume Laterality Blood 01/11/2022 3:45 AM 4:03 EDT AM EDT Resulting Agency Comment Spec In Lab Robert Bailey DO HEMATOLOGY ORDERABLES Performing Organization Address City/[facility]/[place] [address] (ABNORMAL) Hemogram (01/11/2022 3:45 AM EDT) Patholo gist Method Time Signature WBC 7.5 4.0 - 9.5 [facility] LABORATORY RBC 2.48 (L) 4.58 - [facility] PIERREARASELI 5.54 [facility] x10(6)/[facility] LABORATORY Hemoglobin 8.4 (L) 13.7 - [facility] 16.5 g/dL [facility] LABORATORY Hematocrit 24.5 (L) 40.5 - [facility] 48.5 % [facility] LABORATORY MCV 98.8 (H) 82.9 - [facility] 93.1 [facility] LABORATORY MCH 33.9 (H) 27.5 - [facility] 32.1 pg [facility] LABORATORY MCHC 34.3 32.0 - [facility] 35.7 g/dL [facility] LABORATORY Platelets 49 (L) 145 - 357 [facility] x10(3)/[facility] LABORATORY RDWSD 56.4 (H) 36.0 - [facility]0 [facility] LABORATORY RDWCV 15.6 (H) 11.4 - [facility] 13.8 % [facility] LABORATORY MPV 13.2 (H) 7.6 - 12.9 [facility] LABORATORY nRBC % Auto 0.5 % [facility] LABORATORY nRBC Abs Auto 0.040 (H) 0.000 - [facility] ARASELI 0.000 [facility] x10(3)/[facility] LABORATORY Specimen Anatomical Collection Method Collection Time Receive d Time (Source) Location / / Volume Laterality Blood 01/11/2022 3:45 AM 2 4:03 EDT AM EDT Resulting Agency Comment Spec In Lab Robert Bailey DO HEMATOLOGY ORDERABLES Performing Organization Address City/State/[place] [address] (ABNORMAL) Phosphorus (01/11/2022 3:45 AM EDT) P athologist Signature Phosphorus 2.4 (L) 2.5 - 4.5 [facility]/dL [facility] LABORATORY Specimen Anatomical Collection Method Collection Time Receive d Time (Source) Location / / Volume Laterality Blood 01/11/2022 3:45 AM 2 4:03 EDT AM EDT Resulting Agency Comment Spec In Lab Moisés Mcgill MD CHEMISTRY ORDERABLES Performing Organization Address City/State/ZIP Code Phon e Number [address] Magnesium (01/11/2022 3:45 AM EDT) athologist Signature Magnesium 0.88 0.69 - 1.07 [facility] mmol/L [facility] LABORATORY Specimen Anatomical Collection Method Collection Time Receive d Time (Source) Location / / Volume Laterality Blood 01/11/2022 3:45 AM 2 4:03 EDT AM EDT Resulting Agency Comment Spec In Lab Moisés Mcgill MD CHEMISTRY ORDERABLES Performing Organization Address City/[facility] [place] [address] (ABNORMAL) Basic Metabolic Panel (non-fasting) (01/11/2022 3:45 AM EDT) athologist Signature Glucose Lvl 97 65 - 199 [facility] mg/dL [facility] LABORATORY Comment: Diabetes: >=200 mg/dL plus symp toms BUN 22 (H) 10 - 20 mg/dL [facility] LABORATORY Creatinine 0.95 0.80 - 1.50 mg/dL [facility] LABORATORY Sodium 136 135 - 145 mmol/L [facility] LABORATORY Potassium 4.3 3.5 - 5.0 mmol/L [facility] LABORATORY Comment: Please note: ??Patients with WBC >100,00 0 may have falsely elevated Potassium levels. ??For accurate Potassium quantif ication in these patients send serum separator tube (gold top) for subsequent determinations. ??Contact the Clinical Chemistry Laboratory if there are any qu estions. Chloride 104 98 - 107 mmol/L [facility] LABORATORY CO2 20 (L) 22 - 31 mmol/L [facility] LABORATORY Anion Gap 12 5 - 15 mmol/L [facility] LABORATORY Calcium 8.7 8.5 - 10.5 mg/dL [facility] LABORATORY Estimated GFR 86 >=60 mL/min/1.73 m?? [facility] LABORATORY Comment: This patient? s estimated glomerular filtration rate (eGFR) is between 86 mL/min/1.73 m2 (patients with less muscl e mass per kg body weight) and 100 mL/min/1.73 m2 (patients with more muscl e [...] (Source) Location / / Volume Laterality Blood 01/11/2022 3:45 AM 2 4:03 EDT AM EDT Resulting Agency Comment Spec In Lab Moisés Mcgill MD CHEMISTRY ORDERABLES Performing Organization Address City/State/ZIP Code Phon e Number [address] (ABNORMAL) Phosphorus (01/10/2022 4:13 PM EDT) P athologist Signature Phosphorus 2.1 (L) 2.5 - 4.5 [facility] LABORATORY Specimen Anatomical Collection Method Collection Time Receive d Time (Source) Location / / Volume Laterality Blood 01/10/2022 4:13 PM 2 4:20 EDT PM EDT Resulting Agency Comment Spec In Lab Parviz Modi MD CHEMISTRY ORDERABLES Performing Organization Address City/State/ZIP Code Phon e Number [address] Magnesium (01/10/2022 4:13 PM EDT) P athologist Signature Magnesium 1.05 0.69 - 1.07 [facility] mmol/L [facility] LABORATORY Comment: result [id number] Specimen Anatomical Collection Method Collection Time Receive d Time (Source) Location / / Volume Laterality Blood 01/10/2022 4:13 PM 4:20 EDT PM EDT Resulting Agency Comment Spec In Lab Parviz Modi MD CHEMISTRY ORDERABLES Performing Organization Address City/State/Z[place] [address] (ABNORMAL) Basic Metabolic Panel (non-fasting) (01/10/2022 4:13 PM EDT) P athologist Signature Glucose Lvl 154 65 - 199 [facility] mg/dL [facility] LABORATORY Comment: Diabetes: >=200 mg/dL plus symp toms BUN 22 (H) 10 - 20 mg/dL [facility] LABORATORY Creatinine 1.01 0.80 - 1.50 mg/dL [facility] LABORATORY Sodium 132 (L) 135 - 145 mmol/L [facility] LABORATORY Potassium 4.2 3.5 - 5.0 mmol/L [facility] LABORATORY Comment: Please note: ??Patients with WBC >100,00 0 may have falsely elevated Potassium levels. ??For accurate Potassium quantif ication in these patients send serum separator tube (gold top) for subsequent determinations. ??Contact the Clinical Chemistry Laboratory if there are any qu estions. Chloride 101 98 - 107 mmol/L [facility] LABORATORY CO2 16 (L) 22 - 31 mmol/L [facility] LABORATORY Anion Gap 15 5 - 15 mmol/L [facility] LABORATORY Calcium 8.4 (L) 8.5 - 10.5 mg/dL [facility] LABORATORY Estimated GFR 80 >=60 mL/min/1.73 m?? [facility] LABORATORY Comment: This patient? s estimated glomerular filtration rate (eGFR) is between 80 mL/min/1.73 m2 (patients with less muscl e mass per kg body weight) and 93 mL/min/1.73 m2 (patients with more muscl e [...] (Source) Location / / Volume Laterality Blood 01/10/2022 4:13 PM 4:20 EDT PM EDT Resulting Agency Comment Spec In Lab Parviz Modi MD CHEMISTRY ORDERABLES Performing Organization Address City/State/[place] [address] EKG 12 Lead (01/10/2022 10:32 AM EDT) Component Value Ref Range Test Analysis Performed Pathologis t Method Time At Signature Ventricular rate 115 BPM MUSE SYSTEM Atrial Rate 115 BPM MUSE SYSTEM P-R Interval 130 ms MUSE SYSTEM QRS Duration 84 ms MUSE SYSTEM Q-T Interval 352 ms MUSE SYSTEM QTC Calculated 486 ms MUSE SYSTEM (Bezet) Calculated P [place] 53 degrees MUSE SYSTEM Calculated R [place] 28 degrees MUSE SYSTEM Calculated T [place] 85 degrees MUSE SYSTEM INTERPRETATION Sinus tachycardia MUSE SY STEM Nonspecific ST and T wave abnormality Abnormal ECG When compared with ECG of 13-DEC-2021 17:35, Vent. rate has increased BY ??43 BPM Criteria for Inferior infarct are no longer Present ST now depressed in Anterolateral leads Nonspecific T wave abnormality now evident in Inferior leads Confirmed by MD Arora Daniel ([id number]) on 01/10/2022 4:35:43 PM Specimen Anatomical Collection Method Collection Time Receive d Time (Source) Location / / Volume Laterality 01/10/2022 10:32 01/10/2022 4:35 AM EDT PM EDT Parviz Modi MD ECG ORDERABLES Performing Organization Address City/State/ZIP Code Phon e Number MUSE SYSTEM (ABNORMAL) Differential, Automated (01/10/2022 1:00 AM EDT) Patholo gist Method Time Signature Neutrophils % 83.5 % [facility] LABORATORY Neutr Abs (ANC) 4.75 1.70 - [facility] 6.10 [facility] x10(3)/[facility] LABORATORY Lymphocytes % 9.8 % [facility] LABORATORY Lymphocytes Abs 0.6 (L) 0.9 - 3.2 [facility] x10(3)/[facility] LABORATORY Monocytes % 4.2 % [facility] LABORATORY Monocyte Abs 0.2 (L) 0.3 - 0.9 [facility] x10(3)/[facility] LABORATORY Eosinophils % 1.8 % [facility] LABORATORY Eosinophils Abs 0.1 0.0 - 0.4 [facility] x10(3)/[facility] LABORATORY Basophils % 0.0 % [facility] LABORATORY Basophils Abs 0.0 0.0 - 0.1 [facility] x10(3)/[facility] LABORATORY Immature Gran % 0.70 % [facility] LABORATORY Comment: Immature granulocytes(IG's)percentage an d absolute count will include metamyelocytes, myelocytes, and promyelo cytes. Blood smears from CBCs yielding IG's will be scanned manually for concor dance. If this scan disagrees with the automated IG or if promyelocytes are not ed, a manual differential will be performed. Zara Gran Abs 0.04 0.00 - 0.04 x10(3)/[facility] LABORATORY Specimen Anatomical Collection Method Collection Time Receive d Time (Source) Location / / Volume Laterality Blood 01/10/2022 1:00 AM 2 1:27 EDT AM EDT Resulting Agency Comment Spec In Lab Robert Bailey DO HEMATOLOGY ORDERABLES Performing Organization Address City/State/Z[place] [address] (ABNORMAL) Hemogram (01/10/2022 1:00 AM EDT) Analysis Performed At Patho logist Time Signature WBC 5.7 4.0 - 9.5 [facility] x10(3)/[facility] LABORATORY RBC 2.15 (L) 4.58 - [facility] 5.54 [facility] x10(6)/[facility] LABORATORY Hemoglobin 7.4 (L) 13.7 - [facility] 16.5 g/dL [facility] LABORATORY Hematocrit 21.2 (L) 40.5 - [facility] 48.5 % [facility] LABORATORY MCV 98.6 (H) 82.9 - [facility] 93.1 [facility] LABORATORY MCH 34.4 (H) 27.5 - [facility] 32.1 pg [facility] LABORATORY MCHC 34.9 32.0 - [facility] 35.7 g/dL [facility] LABORATORY Platelets 43 (L) 145 - 357 [facility] x10(3)/[facility] LABORATORY RDWSD 56.2 (H) 36.0 - [facility] 45.0 [facility] LABORATORY RDWCV 15.5 (H) 11.4 - [facility] 13.8 % [facility] LABORATORY MPV 12.5 7.6 - 12.9 JIA MARX [facility] LABORATORY nRBC % Auto 0.0 % [facility] LABORATORY nRBC Abs Auto 0.000 0.000 - [facility] MARX 0.000 [facility] x10(3)/[facility] LABORATORY Specimen Anatomical Collection Method Collection Time Receive d Time (Source) Location / / Volume Laterality Blood 01/10/2022 1:00 AM 2 1:27 EDT AM EDT Resulting Agency Comment Spec In Lab Robert Bailey DO HEMATOLOGY ORDERABLES Performing Organization Address City/State/ZIP Code Phon e Number [address] (ABNORMAL) Phosphorus (01/10/2022 1:00 AM EDT) P athologist Signature Phosphorus 1.8 (L) 2.5 - 4.5 [facility] LABORATORY Specimen Anatomical Collection Method Collection Time Receive d Time (Source) Location / / Volume Laterality Blood 01/10/2022 1:00 AM 2 1:27 EDT AM EDT Resulting Agency Comment Spec In Lab Moisés Mcgill MD CHEMISTRY ORDERABLES Performing Organization Address City/State/ZIP Code Phon e Number [address] (ABNORMAL) Magnesium (01/10/2022 1:00 AM EDT) P athologist Signature Magnesium 0.56 (L) 0.69 - 1.07 [facility] mmol/L [facility] LABORATORY Specimen Anatomical Collection Method Collection Time Receive d Time (Source) Location / / Volume Laterality Blood 01/10/2022 1:00 AM 2 1:27 EDT AM EDT Resulting Agency Comment Spec In Lab Moisés Mcgill MD CHEMISTRY ORDERABLES Performing Organization Address City/State/Z[place] [address] (ABNORMAL) Basic Metabolic Panel (non-fasting) (01/10/2022 1:00 AM EDT) P athologist Signature Glucose Lvl 103 65 - 199 [facility] mg/dL [facility] LABORATORY Comment: Diabetes: >=200 mg/dL plus symp toms BUN 22 (H) 10 - 20 mg/dL [facility] LABORATORY Creatinine 0.89 0.80 - 1.50 mg/dL [facility] LABORATORY Sodium 136 135 - 145 mmol/L [facility] LABORATORY Potassium 3.9 3.5 - 5.0 mmol/L [facility] LABORATORY Comment: Please note: ??Patients with WBC >100,00 0 may have falsely elevated Potassium levels. ??For accurate Potassium quantif ication in these patients send serum separator tube (gold top) for subsequent determinations. ??Contact the Clinical Chemistry Laboratory if there are any qu estions. Chloride 105 98 - 107 mmol/L [facility] LABORATORY CO2 20 (L) 22 - 31 mmol/L [facility] LABORATORY Anion Gap 11 5 - 15 mmol/L [facility] LABORATORY Calcium 8.1 (L) 8.5 - 10.5 mg/dL [facility] LABORATORY Estimated GFR 92 >=60 mL/min/1.73 m?? [facility] LABORATORY Comment: This patient? s estimated glomerular filtration rate (eGFR) is between 92 mL/min/1.73 m2 (patients with less muscl e mass per kg body weight) and 107 mL/min/1.73 m2 (patients with more muscl e [...] (Source) Location / / Volume Laterality Blood 01/10/2022 1:00 AM 2 1:27 EDT AM EDT Resulting Agency Comment Spec In Lab Moisés Mcgill MD CHEMISTRY ORDERABLES Performing Organization Address City/State/ZIP Code Phon e Number [place] [id number] COVID-19 PCR (01/09/2022 1:00 PM EDT) [facility] Method Time Signature SARS-CoV-2 Not Detected Not Detected [facility] LABORATORY Comment: This result should be interpreted [...] diagnosis of COVID-19 is performed using the [employer] m DEBORAH S-CoV-2 Assay as authorized by the FDA Emergency Use Authorization (EUA). This EUA assay is intended for In-vitro Diagnostic (IVD) use with respiratory sp ecimens such as nasopharyngeal swabs collected from individuals during the ac glenda phase of infection. This assay is performed based on the instructions for use provided by [employer] and additional guidance provided by CDC and FDA. Testing is performed in the [facility] and [facility] [employer] [facility] within the Department of Pathology and Laboratory Medicine at [facility], certified under the Clinical Laboratory Improvement Amendments [...] required or requested by public health [facility], positive specimens may be sent for additional [...] clinical management guidance information are available at [facility] CDC Coronavirus Disease 2019 (COVID-19) webpage under Information fo r Healthcare Professionals (https://www.cdc.gov/coronavirus/2019-nc ov/hcp/index.html) Additional information about this and ot her EUA tests can be found in provider and patient fact sheets at the following FDA website: https://www.fda.gov/medical-devices/zofydymhduq-xwlvlqh-9168-ddeay-88-mjtorxkzd- eve-doaovzdidzmksz-sfoksfs-devices/uppbc-nbemidwetdy-hftm SARS-Cov-2 RNA Source JUDICIAL ASSISTANT Swab [facility] Specimen (Source) Anatomical Collection Method Collection Time Re ceived Time Location / / Volume Laterality Nasopharyngeal Swab 01/09/2022 1:00 01/09 PM EDT 3:28 PM EDT Comment: Symptoms->Surveillance Resulting Agency Comment Spec In Lab Parviz Modi MD MICROBIOLOGY - GENERAL ORDER BRINA Performing Organization Address City/State/[place] [address] Tacrolimus level (01/09/2022 9:00 AM EDT) P athologist Signature Tacrolimus Lvl 2.8 ng/mL [facility] Comment: Trough therapeutic range is [...] (Source) Location / / Volume Laterality Blood 01/09/2022 9:00 AM 9:23 EDT AM EDT Resulting Agency Comment Spec In Lab Parviz Modi MD CHEMISTRY ORDERABLES Performing Organization Address City/State/[place] [address] (ABNORMAL) Differential, Automated (01/09/2022 12:25 AM EDT) Patholo gist Method Time Signature Neutrophils % 89.9 % [facility] Neutr Abs (ANC) 7.65 (H) 1.70 - [facility] 6.10 [facility] x10(3)/[facility] L LABORATORY Lymphocytes % 4.3 % [facility] Lymphocytes Abs 0.4 (L) 0.9 - 3.2 [facility] x10(3)/[facility] LABORATORY Monocytes % 3.1 % [facility] Monocyte Abs 0.3 0.3 - 0.9 [facility] x10(3)/[facility] LABORATORY Eosinophils % 2.1 % [facility] Eosinophils Abs 0.2 0.0 - 0.4 [facility] x10(3)/[facility] LABORATORY Basophils % 0.0 % [facility] Basophils Abs 0.0 0.0 - 0.1 [facility] x10(3)/[facility] LABORATORY Immature Gran % 0.60 % [facility] Comment: Immature granulocytes(IG's)percentage an d absolute count will include metamyelocytes, myelocytes, and promyelo cytes. Blood smears from CBCs yielding IG's will be scanned manually for concmargie danshahana. If this scan disagrees with the automated IG or if promyelocytes are not ed, a manual differential will be performed. Zara Gran Abs 0.05 (H) 0.00 - 0.04 x10(3)/[facility] LABORATORY Specimen Anatomical Collection Method Collection Time Receive d Time (Source) Location / / Volume Laterality Blood 01/09/2022 12:25 01/09/2022 AM EDT 12:34 AM EDT Resulting Agency Comment Spec In Lab Robert Bailey DO HEMATOLOGY ORDERABLES Performing Organization Address City/State/[place] [address] (ABNORMAL) Hemogram (01/09/2022 12:25 AM EDT) [facility] gist Method Time Signature WBC 8.5 4.0 - 9.5 [facility] x10(3)/[facility] LABORATORY RBC 2.24 (L) 4.58 - [facility] 5.54 [facility] x10(6)/[facility] LABORATORY Hemoglobin 7.7 (L) 13.7 - [facility] 16.[facility] g/dL [facility] Hematocrit 22.8 (L) 40.5 - [facility] 48.5 % [facility] LAB[facility]ATORY MCV 101.8 (H) 82.9 - [facility] 93.1 [facility] LABORATORY MCH 34.4 (H) 27.5 - [facility] 32.1 pg [facility] LABORATORY MCHC 33.8 32.0 - [facility] 35.7 g/dL [facility] LABORATORY Platelets 59 (L) 145 - 357 [facility] x10(3)/[facility] LABORATORY RDWSD 62.0 (H) 36.[address] - [facility] 45.0 [facility] LABORATORY RDWCV 16.5 (H) 11.4 - [facility] 13.8 % [facility] LABORATORY MPV 12.3 7.6 - 12.9 [facility] LABORATORY nRBC % Auto 0.0 % [facility] nRBC Abs Auto 0.000 0.000 - [facility] 0.000 [facility] x10(3)/[facility] LABORATORY Specimen Anatomical Collection Method Collection Time Receive d Time (Source) Location / / Volume Laterality Blood 01/09/2022 12:25 01/09/2022 AM EDT 12:34 AM EDT Resulting Agency Comment Spec In Lab Robert Bailey DO HEMATOLOGY ORDERABLES Performing Organization Address City/[facility]/ZIP Code Phon e Number [address] (ABNORMAL) Phosphorus (01/09/2022 12:25 AM EDT) P athologist Signature Phosphorus 1.8 (L) 2.5 - 4.5 [facility] mg/dL [facility] LAB[facility]ATORY Specimen Anatomical Collection Method Collection Time Receive d Time (Source) Location / / Volume Laterality Blood 01/09/2022 12:25 01/09/2022 AM EDT 12:34 AM EDT Resulting Agency Comment Spec In Lab Moisés Mcgill MD CHEMISTRY ORDERABLES Performing Organization Address City/[facility]/ZIP Code Phon e Number [address] Magnesium (01/09/2022 12:25 AM EDT) P athologist Signature Magnesium 0.70 0.69 - 1.07 [facility] mmol/L [facility] LABORATORY Specimen Anatomical Collection Method Collection Time Receive d Time (Source) Location / / Volume Laterality Blood 01/09/2022 12:25 01/09/2022 AM EDT 12:34 AM EDT Resulting Agency Comment Spec In Lab Moisés Mcgill MD CHEMISTRY ORDERABLES Performing Organization Address City/[facility]/[place] [address] (ABNORMAL) Basic Metabolic Panel (non-fasting) (01/09/2022 12:25 AM EDT) P athologist Signature Glucose Lvl 127 65 - 199 [facility] mg/dL [facility]ORY Comment: Diabetes: >=200 mg/dL plus symp toms BUN 26 (H) 10 - 20 mg/dL [facility] Creatinine 0.97 0.80 - 1.50 mg/dL [facility] LABORATORY Sodium 138 135 - 145 mmol/L [facility] Potassium 3.4 (L) 3.5 - 5.0 mmol/L [facility] Comment: Please note: ??Patients with WBC >100,00 0 may have falsely elevated Potassium levels. ??For accurate Potassium quantif ication in these patients send serum separator tube (gold top) for subsequent determinations. ??Contact the Clinical Chemistry Laboratory if there are any qu estions. Chloride 107 98 - 107 mmol/L [facility] CO2 19 (L) 22 - 31 mmol/L [facility] Anion Gap 12 5 - 15 mmol/L [facility] Calcium 7.9 (L) 8.5 - 10.5 mg/dL [facility] Estimated GFR 84 >=60 mL/min/1.73 m?? [facility] Comment: This patient? s estimated glomerular filtration rate (eGFR) is between 84 mL/min/1.73 m2 (patients with less muscl e mass per kg body weight) and 97 mL/min/1.73 m2 (patients with more muscl e [...] (Source) Location / / Volume Laterality Blood 01/09/2022 12:25 01/09/2022 AM EDT 12:34 AM EDT Resulting Agency Comment Spec In Lab Moisés Mcgill MD CHEMISTRY ORDERABLES Performing Organization Address City/State/[place] [address] (ABNORMAL) Vancomycin, trough (01/08/2022 6:25 PM EDT) P athologist Signature Vanc Trough 22.1 mg/L [facility] Comment: called by EB/read back by Radha Marmolejo @ 1946 Therapeutic range for complicated infect ions such [...] Organization Address City/State/ZIP Code Phon e Number [place] [id number] XR Fluoro Guided Lumbar [...] who have questions please contact the health child care worker that requested your imaging first. ? 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 TECHNIQUE: Written informed [...] . A preprocedural timeout was performed per [facility] protocol. The patient's skin wa s anesthetized [...] FLUOROSCOPY TIME: 0.13 minutes Procedure Note Yolette Solano APRN - 01/08/2022For matting of this note might be different from the original. 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 TECHNIQUE: Written informed [...] . A preprocedural timeout was performed per [facility] protocol. The patient's skin wa s anesthetized [...] ho have questions please contact the health child care worker that requested your imaging first. Parviz Modi MD IMG FLUORO ORDERABLES Fluid Review Report (01/08/2022 11:18 AM EDT) Component Value Ref Test Analysis Performed At [facility] gist Range Method Time Signature Fluid Review [id number] ? Location: [facility]; [facility]; Janelle CUELLOCOCK The signing pathologist has (i) examined the relevant preparation(s) for the [facility] specimen(s) and (ii) rendered or confirmed the diagnosis(es) . HOSPITAL LABORATORY . ? Fl uid Review DIAGNOSIS CEREBROPSINAL FLUID: traumatic tap. ??No malignan t cells are seen on the cytocentrifuge preparation. Electronically signed by: ?Chuyita STEPHENSON, Eliseo Verified: ??01/08/2022 18:15 ??Hematopathologist Performed at: ??-[facility] Dept. of Pathology, [place], [place] DISCUSSION The specimen shows possible contaminatio n with peripheral blood and may not be reflective of true CSF parameters. ADDITIONAL STUDIES WBC/uL: 83 RBC/uL: 1293 200 cells counted on cytocentrifuge preparation. Numerous small and ??interme diate ??sized mature lymphocytes, reactive macrophages, neutrophils seen. CLINICAL INFORMATION Specimen: ? CSF Clinical Diagnosis: ? 61M; h/o AML with Hx of 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 COORDINATOR diseas e Indication for Study: ?? IT chemo, eval csf Specimen (Source) Anatomical Collection Method Collection Time Re ceived Time Location / / Volume Laterality 01/08/2022 11:18 AM EDT Hortensia Tenorio MD PATHOLOGY/CYTOLOGY ORDERABLE S Performing Organization Address City/State/ZIP Code [place] [address] [facility] [address] CSF Cell Count 2nd count (01/08/2022 11:18 AM EDT) P athologist Signature Tube #2nd CT 3 [facility] RBC CSF CT #2 1887 /mcl [facility] Specimen (Source) Anatomical Collection Method Collection Time Re ceived Time Location / / Volume Laterality Cerebrospinal Fluid 01/08/2022 11:18 05/2 12/2021 AM EDT 1:22 PM EDT Resulting Agency Comment Spec In Lab Hortensia Tenorio MD BODY FLUIDS AND STOOLS ORDER BRINA Performing Organization Address City/[facility]/ZIP Code Phon e Number [address] (ABNORMAL) CSF Cell Count (01/08/2022 11:18 AM EDT) P athologist Signature Tube # Ct CSF 4 [facility] Nucleated CSF 83 (H) 0 - 5 /mcl [facility] Comment: If Nucleated CSF CT result [...] clinical condition. RBC CSF CT 1,293 /mcl [facility]ORY Neutrophil CSF 2 % [facility] Lymphocyte CSF 93 % [facility] Macrophage CSF 5 % [facility] Tot Diff Ct CSF 200 Cells [facility] Specimen (Source) Anatomical Collection Method Collection Time Re ceived Time Location / / Volume Laterality Cerebrospinal Fluid 01/08/2022 11:18 05/2 12/2021 AM EDT 1:22 PM EDT Resulting Agency Comment Spec In Lab Hortensia Tenorio MD BODY FLUIDS AND STOOLS ORDER BRINA Performing Organization Address City/State/ZIP Code Phon e Number [address] CSF DESC 4 (01/08/2022 11:18 AM EDT) Patholo gist Method Time Signature Tube Num CSF 4 [facility] #4 [facility] LABORATORY Color CSF #4 [place] Colorless [facility] Appear CSF #4 Slightly Clear [facility] LABORATORY Tot Vol CSF 5.8 mL [facility] #4 [facility] LABORATORY Specimen (Source) Anatomical Collection Method Collection Time Re ceived Time Location / / Volume Laterality Cerebrospinal Fluid 01/08/2022 11:18 05/2 12/2021 AM EDT 1:22 PM EDT Resulting Agency Comment Spec In Lab Hortensia Tenorio MD BODY FLUIDS AND STOOLS ORDER BRINA Performing Organization Address City/[facility]/ZIP Code Phon e Number [address] CSF DESC 3 (01/08/2022 11:18 AM EDT) Patholo gist Method Time Signature Tube Num CSF 3 [facility]3 [facility] LABORATORY Color CSF #3 [place] Colorless [facility] Appear CSF #3 Slightly Clear [facility] LABORATORY Tot Vol CSF 1.5 mL [facility]3 [facility] LABORATORY Specimen (Source) Anatomical Collection Method Collection Time Re ceived Time Location / / Volume Laterality Cerebrospinal Fluid 01/08/2022 11:18 05/2 12/2021 AM EDT 1:22 PM EDT Resulting Agency Comment Spec In Lab Hortensia Tenorio MD BODY FLUIDS AND STOOLS ORDER BRINA Performing Organization Address City/[facility]/ZIP Code Phon e Number [address] CSF DESC 2 (01/08/2022 11:18 AM EDT) P athologist Signature Tube Num CSF 2 [facility] #2 [facility] LABORATORY Color CSF #2 [place] Colorless [facility] Appear CSF #2 Hazy Clear [facility] Tot Vol CSF #2 1.3 mL [facility] Specimen (Source) Anatomical Collection Method Collection Time Re ceived Time Location / / Volume Laterality Cerebrospinal Fluid 01/08/2022 11:18 12/16 AM EDT 1:22 PM EDT Resulting Agency Comment Spec In Lab Hortensia Tenorio MD BODY FLUIDS AND STOOLS ORDER BRINA Performing Organization Address City/[facility]/ZIP Code Phon e Number [address] CSF DESC 1 (01/08/2022 11:18 AM EDT) P athologist Signature Tube Num CSF 1 [facility]1 [facility] LABORATORY Color CSF #1 Red Colorless [facility] Appear CSF #1 Clotted Clear [facility] Tot Vol CSF #1 3.0 mL [facility] Specimen (Source) Anatomical Collection Method Collection Time Re ceived Time Location / / Volume Laterality Cerebrospinal Fluid 01/08/2022 11:18 12/16 AM EDT 1:22 PM EDT Resulting Agency Comment Spec In Lab Hortensia Tenorio MD BODY FLUIDS AND STOOLS ORDER BRINA Performing Organization Address City/[facility]/ZIP Code Phon e Number [address] Body Fluid HOLD Cerebrospinal Fluid (01/08/2022 11:18 AM EDT) Patholo gist Method Time Signature Hold BF Type Sample in [facility]. [facility] LABORATORY Specimen Anatomical Collection Method Collection Time Receive d Time (Source) Location / / Volume Laterality Body Fld 01/08/2022 11:18 01/08/2022 2:01 AM EDT PM EDT Parviz Modi MD BODY FLUIDS AND STOOLS ORDER BRINA Performing Organization Address City/State/[place] [address] HSV 1 and 2 PCR (01/08/2022 11:18 AM EDT) [facility] Method Time Signature HSV-1 PCR Not Detected Not Detected [facility] HSV-2 PCR Not Detected Not Detected [facility] HSV Source CSF [facility] Comment: The only FDA approved specimen types for this assay are CSF and genital lesions. Specimen (Source) Anatomical Collection Method Collection Time Re ceived Time Location / / Volume Laterality Cerebrospinal Fluid 01/08/2022 11:18 05/2 12/2021 AM EDT 1:32 PM EDT Comment: Specimen Type:->Cerebrospinal F luid Resulting Agency Comment Spec In Lab Parviz Modi MD MICROBIOLOGY - GENERAL ORDER BRINA Performing Organization Address City/State/[place] [address] VZV PCR, CSF (01/08/2022 11:18 AM EDT) Component Value Ref Test Analysis Performed At [facility] Range Method Time Signature Varicella-Zo JIA ster PCR Test ?Result ? Flag ??Unit ??RefValue [facility] Varicella-Zoster Virus PCR [facility] ??Specimen Source ? CSF LABORATORY ??Varicella-Zoster Virus PC R ?Negative ? Negative ? ADDITIONAL INFORMATION ------ ?This test was developed and its performance characteri stics ?determined by [facility] in a manner consistent with CLIA ?requirements. This test has not been cleared or approv ed by ?the U.S. Food and Drug Administration. ?Test Performed by: ?[facility] ?[address] [place] [address] ?Hospital Monitor: Randal Aparicio M.D. Ph.D.; CLIA# [id number] Specimen (Source) Anatomical Collection Method Collection Time Re ceived Time Location / / Volume Laterality Cerebrospinal Fluid 01/08/2022 11:18 05/2 12/2021 AM EDT 4:03 PM EDT Resulting Agency Comment Spec In Lab Parviz Modi MD MICROBIOLOGY - GENERAL ORDER BRINA Performing Organization Address City/[facility]/[place] [address] Enterovirus PCR, CSF (01/08/2022 11:18 AM EDT) [facility] Method Time Signature Enterovirus Negative Negative [facility] LABORATORY Specimen (Source) Anatomical Collection Method Collection Time Re ceived Time Location / / Volume Laterality Cerebrospinal Fluid 01/08/2022 11:18 05/2 12/2021 AM EDT 1:32 PM EDT Resulting Agency Comment Spec In Lab Parviz Modi MD MICROBIOLOGY - GENERAL ORDER BRINA Performing Organization Address City/[facility]/[place] [address] Leukemia Lymphoma Screen Cerebrospinal Fluid (01/08/2022 11:18 AM EDT) [facility] Method Time Signature LLS BF Type CSF [facility] Leukemia See Comment [facility] Lymphoma [facility] LABORATORY Comment: See Fluid Review Report [id number] under Hematopathology Reports. Specimen (Source) Anatomical Collection Method Collection Time Re ceived Time Location / / Volume Laterality Cerebrospinal Fluid 01/08/2022 11:18 05/2 12/2021 AM EDT 1:22 PM EDT Resulting Agency Comment Spec In Lab Parviz Modi MD BODY FLUIDS AND STOOLS ORDER BRINA Performing Organization Address City/[facility]/[place] [address] Cryptococcal Antigen CSF (MC/CGP/APD/NLH) (01/08/2022 11:18 AM EDT) [facility]ist Method Time Signature CSF Cryptococcal Negative Negative [facility] LABORATORY Specimen (Source) Anatomical Collection Method Collection Time Re ceived Time Location / / Volume Laterality Cerebrospinal Fluid 01/08/2022 11:18 05/2 12/2021 AM EDT 1:40 PM EDT Resulting Agency Comment Spec In Lab Parviz Modi MD MICROBIOLOGY - GENERAL ORDER BRINA Performing Organization Address City/[facility]/[place] [address] CSF Culture (01/08/2022 11:18 AM EDT) Component Value Ref Test Analysis Performed At [facility] Range Method Time Signature Central No growth [facility] LABORATORY Gram Stain Cytocentrifuge Gram Stain performed [facility] No Neutrophils seen. OCILLA No microorganisms seen. [facility] LABORATORY Specimen (Source) Anatomical Collection Method Collection Time Re ceived Time Location / / Volume Laterality Cerebrospinal Fluid 01/08/2022 11:18 05/2 12/2021 AM EDT 1:32 PM EDT Resulting Agency Comment Spec In Lab Parviz Modi MD MICROBIOLOGY - GENERAL ORDER BRINA Performing Organization Address City/[facility]/[place] [address] Glucose Level CSF (01/08/2022 11:18 AM EDT) P athologist Signature Glucose, CSF 67 mg/dL [facility] Comment: CSF at equilibrium equals appro ximately 60-80% of plasma glucose. Specimen (Source) Anatomical Collection Method Collection Time Re ceived Time Location / / Volume Laterality Cerebrospinal Fluid 01/08/2022 11:18 05/2 12/2021 AM EDT 1:22 PM EDT Resulting Agency Comment Spec In Lab Parviz Modi MD BODY FLUIDS AND STOOLS ORDER BRINA Performing Organization Address City/[facility]/[place] [address] (ABNORMAL) Protein Level CSF (01/08/2022 11:18 AM EDT) Analysis Performed At Patho logist Time Signature T Protein, CSF 346 (H) 15 - 45 [facility] mg/dL [facility] LABORATORY Xanthochromia Slight [facility] Specimen (Source) Anatomical Collection Method Collection Time Re ceived Time Location / / Volume Laterality Cerebrospinal Fluid 01/08/2022 11:18 05/2 12/2021 AM EDT 1:22 PM EDT Resulting Agency Comment Spec In Lab Parviz Modi MD BODY FLUIDS AND STOOLS ORDER BRINA Performing Organization Address City/[facility]/ZIP [facility] [place] [address] (ABNORMAL) Prothrombin Time (01/08/2022 9:15 AM EDT) P athologist Signature PT 16.2 (H) 9.4 - 12.5 [facility] LABORATORY INR 1.4 [facility] Comment: An INR <2.0 indicates adequate [...] / Volume Laterality Blood 01/08/2022 9:15 AM 9:33 EDT AM EDT Resulting Agency Comment Spec In Lab Yolette Solano APRN HEMATOLOGY ORDERABLES Performing Organization Address City/[facility]/[place] [address] 24 Hour EEG, Portable (01/08/2022 5:00 AM EDT) Narrative Rene Adams MD - 01/08/2022 5 :00 AM EDT Graham Ramirez MD ? 01/08/2022 12:23 PM [facility] Department of Neurology Continuous EEG Report Patient: Herber Iverson Jr., [id number] Date: 01/08/22 Start Time: 17:16 on 01/07/22 End Time: 11:18 on 01/08/22 Duration ~18 hours Fellow: Graham Ramierz MD Attending: Rene Adams MD History: Per notes, Herber Iverson Jr. is a 61 y.o. 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 Neurology is consulted for ongoing encep halopathy. Methods: A 21 channel digitized electroe ncephalogram was by the [facility] Clinical Neurophysio logy Laboratory. The 10/20 [...] seen. Graham Ramirez MD Clinical Neurophysiology Fellow Parvzi Modi MD NEUROLOGY ORDERABLES Scan, Peripheral Blood (01/08/2022 1:35 AM EDT) [facility] Method Time Signature Plat Estimate Decreased [facility] RBC Morphology Abnormal [facility] Macrocytes 1-5 /HPF [facility] Specimen Anatomical Collection Method Collection Time Receive d Time (Source) Location / / Volume Laterality Blood 01/08/2022 1:35 AM 1:45 EDT AM EDT Resulting Agency Comment Spec In Lab Robert Bailey DO HEMATOLOGY ORDERABLES Performing Organization Address City/State/[place] [address] (ABNORMAL) Differential, Automated (01/08/2022 1:35 AM EDT) [facility] Method Time Signature Neutrophils % 92.8 % [facility] Neutr Abs (ANC) 7.90 (H) 1.70 - [facility] 6.10 [facility] x10(3)/[facility] L LABORATORY Lymphocytes % 2.9 % [facility] Lymphocytes Abs 0.2 (L) 0.9 - 3.2 [facility] x10(3)/[facility] LABORATORY Monocytes % 2.6 % [facility] Monocyte Abs 0.2 (L) 0.3 - 0.9 [facility] x10(3)/[facility] LABORATORY Eosinophils % 0.8 % [facility] Eosinophils Abs 0.1 0.0 - 0.4 [facility] x10(3)/[facility] LABORATORY Basophils % 0.0 % [facility] Basophils Abs 0.0 0.0 - 0.1 [facility] x10(3)/[facility] LABORATORY Immature Gran % 0.90 % [facility] Comment: Immature granulocytes(IG's)percentage an d absolute count will include metamyelocytes, myelocytes, and promyelo cytes. Blood smears from CBCs yielding IG's will be scanned manually for concor dance. If this scan disagrees with the automated IG or if promyelocytes are not ed, a manual differential will be performed. Zara Gran Abs 0.08 (H) 0.00 - 0.04 x10(3)/[facility] LABORATORY Specimen Anatomical Collection Method Collection Time Receive d Time (Source) Location / / Volume Laterality Blood 01/08/2022 1:35 AM 1:45 EDT AM EDT Resulting Agency Comment Spec In Lab Robert Bailey DO HEMATOLOGY ORDERABLES Performing Organization Address City/State/[place] [address] (ABNORMAL) Hemogram (01/08/2022 1:35 AM EDT) [facility] gist Method Time Signature WBC 8.5 4.0 - 9.5 [facility] x10(3)/[facility] LABORATORY RBC 2.22 (L) 4.58 - JIA ARASELI 5.54 [facility] x10(6)/[facility] LABORATORY Hemoglobin 7.6 (L) 13.7 - [facility] 16.5 g/dL [facility] Hematocrit 22.3 (L) 40.5 - JAI ARASELI 48.5 % [facility] MCV 100.5 (H) 82.9 - JIA ARASELI 93.1 [facility] LABORATORY MCH 34.2 (H) 27.5 - JIA ARASELI 32.1 pg [facility] LABORATORY MCHC 34.1 32.0 - [facility] ARASELI 35.7 g/dL [facility]OR[facility]ORY Platelets 49 (L) 145 - 357 [facility] LABORATORY RDWSD 62.0 (H) 36.0 - [facility] ARASELI 45.0 [facility] LABORATORY RDWCV 16.7 (H) 11.4 - [facility] ARASELI 13.8 % [facility] LABORATORY MPV 12.4 7.6 - 12.9 JIA ARASELI [facility] LABORATORY nRBC % Auto 0.0 % [facility] nRBC Abs Auto 0.000 0.000 - JIA MARX 0.000 [facility] x10(3)/[facility] LABORATORY Specimen Anatomical Collection Method Collection Time Receive d Time (Source) Location / / Volume Laterality Blood 01/08/2022 1:35 AM 2 1:45 EDT AM EDT Resulting Agency Comment Spec In Lab Robert Bailey DO HEMATOLOGY ORDERABLES Performing Organization Address City/State/ZIP Code Phon e Number [address] Phosphorus (01/08/2022 1:35 AM EDT) athologist Signature Phosphorus 3.1 2.5 - 4.5 JIA PIERREARASELI mg/dL [facility] LABORATORY Specimen Anatomical Collection Method Collection Time Receive d Time (Source) Location / / Volume Laterality Blood 01/08/2022 1:35 AM 2 1:45 EDT AM EDT Resulting Agency Comment Spec In Lab Moisés Mcgill MD CHEMISTRY ORDERABLES Performing Organization Address City/[facility]/ZIP Code Phon e Number [address] Magnesium (01/08/2022 1:35 AM EDT) P athologist Signature Magnesium 0.97 0.69 - 1.07 JIA MARX mmol/L [facility] LABORATORY Specimen Anatomical Collection Method Collection Time Receive d Time (Source) Location / / Volume Laterality Blood 01/08/2022 1:35 AM 2 1:45 EDT AM EDT Resulting Agency Comment Spec In Lab Moisés Mcgill MD CHEMISTRY ORDERABLES Performing Organization Address City/[facility]/ZIP Code Phon e Number [address] (ABNORMAL) Basic Metabolic Panel (non-fasting) (01/08/2022 1:35 AM EDT) P athologist Signature Glucose Lvl 112 65 - 199 [facility] mg/dL [facility] Comment: Diabetes: >=200 mg/dL plus symp toms BUN 23 (H) 10 - 20 mg/dL [facility] Creatinine 1.14 0.80 - 1.50 mg/dL [facility]ORY Sodium 140 135 - 145 mmol/L [facility] Potassium 3.8 3.5 - 5.0 mmol/L [facility] Comment: Please note: ??Patients with WBC >100,00 0 may have falsely elevated Potassium levels. ??For accurate Potassium quantif ication in these patients send serum separator tube (gold top) for subsequent determinations. ??Contact the Clinical Chemistry Laboratory if there are any qu estions. Chloride 109 (H) 98 - 107 mmol/L [facility] CO2 17 (L) 22 - 31 mmol/L [facility] Anion Gap 14 5 - 15 mmol/L [facility] Calcium 8.1 (L) 8.5 - 10.5 mg/dL [facility] Estimated GFR 69 >=60 mL/min/1.73 m?? [facility] Comment: This patient? s estimated glomerular filtration rate (eGFR) is between 69 mL/min/1.73 m2 (patients with less muscl e mass per kg body weight) and 80 mL/min/1.73 m2 (patients with more muscl e [...] Location / / Volume Laterality Blood 01/08/2022 1:35 AM 1:45 EDT AM EDT Resulting Agency Comment Spec In Lab Moisés Mcgill MD CHEMISTRY ORDERABLES Performing Organization Address City/State/[place] [address] MRI Brain wwo Contrast (Generic) (01/07/2022 9:34 [...] who have questions please contact the health child care worker that requested your imaging first. ? Narrative 01/08/2022 9:21 AM EDT EXAMINATION: MRI [...] ho have questions please contact the health child care worker that requested your imaging first. Parviz Modi MD IMG MRI ORDERABLES (ABNORMAL) Magnesium (01/07/2022 1:40 PM EDT) athologist Signature Magnesium 0.67 (L) 0.69 - 1.07 [facility] mmol/L [facility]ORY Specimen Anatomical Collection Method Collection Time Receive d Time (Source) Location / / Volume Laterality Blood Venous Draw / 01/07/2022 1:40 PM 01/08/20 22 2:04 Unknown EDT PM EDT Resulting Agency Comment Spec In Lab Hortensia Tenorio MD CHEMISTRY ORDERABLES Performing Organization Address City/State/Z[place] [address] (ABNORMAL) Basic Metabolic Panel (non-fasting) (01/07/2022 1:40 PM EDT) athologist Signature Glucose Lvl 122 65 - 199 [facility] mg/dL [facility] Comment: Diabetes: >=200 mg/dL plus symp toms BUN 20 10 - 20 mg/dL [facility] Creatinine 1.14 0.80 - 1.50 mg/dL [facility] Sodium 139 135 - 145 mmol/L [facility] Potassium 3.8 3.5 - 5.0 mmol/L [facility] Comment: Please note: ??Patients with WBC >100,00 0 may have falsely elevated Potassium levels. ??For accurate Potassium quantif ication in these patients send serum separator tube (gold top) for subsequent determinations. ??Contact the Clinical Chemistry Laboratory if there are any qu estions. Chloride 108 (H) 98 - 107 mmol/L [facility] CO2 18 (L) 22 - 31 mmol/L [facility] Anion Gap 13 5 - 15 mmol/L [facility] Calcium 8.6 8.5 - 10.5 mg/dL [facility] Estimated GFR 69 >=60 mL/min/1.73 m?? [facility] Comment: This patient? s estimated glomerular filtration rate (eGFR) is between 69 mL/min/1.73 m2 (patients with less muscl e mass per kg body weight) and 80 mL/min/1.73 m2 (patients with more muscl e [...] Organization Address City/State/ZIP Code Phon e Number [place] [phone]OSP[address] LAB[address]ORY [address] TSH Masterson (01/07/2022 1:40 PM EDT) P athologist Signature TSH 1.37 0.27 - 4.20 [facility] mcIU/mL [facility] Comment: Reference Interval (mcIU/mL): Females: ??First Trimester: 0.23-3.88 ??Second Trimester: 0.22-3.90 ??Third Trimester: 0.44-4.66 Specimen Anatomical Collection Method Collection Time Receive d Time (Source) Location / / Volume Laterality Blood 01/07/2022 1:40 PM 2 1:57 EDT PM EDT Resulting Agency Comment Spec In Lab Moisés Mcgill MD CHEMISTRY ORDERABLES Performing Organization Address City/State/ZIP Code Phon e Number [place] [phone]OS[address] LAB[address]ORY Drive (ABNORMAL) Differential, Automated (01/07/2022 5:24 AM EDT) [facility] Method Time Signature Neutrophils % 91.6 % [facility] Neutr Abs (ANC) 8.13 (H) 1.70 - [facility] 6.10 [facility] x10(3)/[facility] L LABORATORY Lymphocytes % 2.3 % [facility] Lymphocytes Abs 0.2 (L) 0.9 - 3.2 [facility] x10(3)/[facility] LABORATORY Monocytes % 3.5 % [facility] Monocyte Abs 0.3 0.3 - 0.9 [facility] x10(3)/[facility] LABORATORY Eosinophils % 1.7 % [facility] Eosinophils Abs 0.2 0.0 - 0.4 [facility] x10(3)/[facility] LABORATORY Basophils % 0.1 % [facility] Basophils Abs 0.0 0.0 - 0.1 [facility] x10(3)/[facility] LABORATORY Immature Gran % 0.80 % [facility] Comment: Immature granulocytes(IG's)percentage an d absolute count will include metamyelocytes, myelocytes, and promyelo cytes. Blood smears from CBCs yielding IG's will be scanned manually for concor dance. If this scan disagrees with the automated IG or if promyelocytes are not ed, a manual differential will be performed. Zara Gran Abs 0.07 (H) 0.00 - 0.04 x10(3)/[facility] LABORATORY Specimen Anatomical Collection Method Collection Time Receive d Time (Source) Location / / Volume Laterality Blood 01/07/2022 5:24 AM 5:35 EDT AM EDT Resulting Agency Comment Spec In Lab Robert Bailey DO HEMATOLOGY ORDERABLES Performing Organization Address City/[facility]/[place] [address] (ABNORMAL) Hemogram (01/07/2022 5:24 AM EDT) Analysis Performed At Patho logist Time Signature WBC 8.9 4.0 - 9.5 JIA ARASELI x10(3)/[facility] LABORATORY RBC 2.29 (L) 4.58 - J[facility] CUELLOCOCK 5.54 [facility] x10(6)/[facility] LABORATORY Hemoglobin 7.7 (L) 13.7 - [facility] g/dL [facility] LABORATORY Hematocrit 22.8 (L) 40.5 - JIA ARASELI 48.5 % [facility] LABORATORY MCV 99.6 (H) 82.9 - JIA ARASELI 93.1 [facility] LABORATORY MCH 33.6 (H) 27.5 - JIA PIERREARASELI 32.1 pg [facility] LABORATORY MCHC 33.8 32.0 - JIA PIERREARASELI 35.7 g/dL [facility] Platelets 52 (L) 145 - 357 [facility] x10(3)/[facility] LABORATORY RDWSD 61.5 (H) 36.0 - JIA ARASELI 45.0 [facility] LABORATORY RDWCV 16.9 (H) 11.4 - JIA ARASELI 13.8 % [facility] LABORATORY MPV 12.4 7.6 - 12.9 [facility] LAB[facility]ATORY nRBC % Auto 0.0 % [facility] nRBC Abs Auto 0.000 0.000 - JIA ARASELI 0.000 [facility] x10(3)/[facility] LABORATORY Specimen Anatomical Collection Method Collection Time Receive d Time (Source) Location / / Volume Laterality Blood 01/07/2022 5:24 AM 5:35 EDT AM EDT Resulting Agency Comment Spec In Lab Robert Bailey DO HEMATOLOGY ORDERABLES Performing Organization Address City/State/[place] [address] (ABNORMAL) Phosphorus (01/07/2022 5:24 AM EDT) P athologist Signature Phosphorus 2.2 (L) 2.5 - 4.5 [facility] Specimen Anatomical Collection Method Collection Time Receive d Time (Source) Location / / Volume Laterality Blood 01/07/2022 5:24 AM 2 5:35 EDT AM EDT Resulting Agency Comment Spec In Lab Moisés Mcgill MD CHEMISTRY ORDERABLES Performing Organization Address City/[facility]/ZIP Code Phon e Number [address] Magnesium (01/07/2022 5:24 AM EDT) athologist Signature Magnesium 0.79 0.69 - 1.07 [facility] mmol/L [facility] Comment: result rechecked-bm Specimen Anatomical Collection Method Collection Time Receive d Time (Source) Location / / Volume Laterality Blood 01/07/2022 5:24 AM 2 5:35 EDT AM EDT Resulting Agency Comment Spec In Lab Moisés Mcgill MD CHEMISTRY ORDERABLES Performing Organization Address City/[facility]/ZIP [facility] [place] [address] (ABNORMAL) Basic Metabolic Panel (non-fasting) (01/07/2022 5:24 AM EDT) athologist Signature Glucose Lvl 112 65 - 199 [facility] mg/dL [facility] Comment: Diabetes: >=200 mg/dL plus symp toms BUN 21 (H) 10 - 20 mg/dL [facility] Creatinine 1.18 0.80 - 1.50 mg/dL [facility] LABOR[facility]ORY Sodium 139 135 - 145 mmol/L [facility] Potassium 3.0 (Critical) 3.5 - 5.0 mmol/L [facility] Comment: called by bm/read back by mona de la rosa 01/07/22 0614 Please note: ??Patients with WBC >100,00 0 may have falsely elevated Potassium levels. ??For accurate Potassium quantif ication in these patients send serum separator tube (gold top) for subsequent determinations. ??Contact the Clinical Chemistry Laboratory if there are any qu estions. Chloride 108 (H) 98 - 107 mmol/L [facility] CO2 17 (L) 22 - 31 mmol/L [facility] Anion Gap 14 5 - 15 mmol/L [facility] Calcium 8.7 8.5 - 10.5 mg/dL [facility] Estimated GFR 66 >=60 mL/min/1.73 m?? [facility] Comment: This patient? s estimated glomerular filtration rate (eGFR) is between 66 mL/min/1.73 m2 (patients with less muscl e mass per kg body weight) and 77 mL/min/1.73 m2 (patients with more muscl e [...] Location / / Volume Laterality Blood 01/07/2022 5:24 AM 2 5:35 EDT AM EDT Resulting Agency Comment Spec In Lab Moisés Mcgill MD CHEMISTRY ORDERABLES Performing Organization Address City/State/[place] [address] Blood culture (01/07/2022 4:31 AM EDT) [facility] gist Method Time Signature Blood Culture No growth JIA CUELLOCOCK at 5 days. [facility] LABORATORY Specimen Anatomical Collection Method Collection Time Receive d Time (Source) Location / / Volume Laterality Blood 01/07/2022 4:31 AM 2 6:05 EDT AM EDT Comment: L arm Resulting Agency Comment Spec In Lab Moisés Mcgill MD MICROBIOLOGY - BLOOD ORDERAB LES Performing Organization Address City/[facility]/[place] [address] Head wo Contrast [...] who have questions please contact the health child care worker that requested your imaging first. ? 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 Mastoid air cells: Clear. Calvarium: Intact. Extracranial soft tissues: Unremarkable. Procedure Note Cinthya Ramirez MD - 01/07/2022Formattin g of this note might be different from the original. 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 Moisés Mcgill MD IMG CT ORDERABLES (ABNORMAL) Urinalysis Microscopic Exam (01/07/2022 12:13 AM EDT) athologist Signature RBC UA 5 (H) 0 - 3 /HPF [facility] Comment: Interpret with caution, manual microscopic results are from an unspun specimen. WBC UA 2 0 - 3 /HPF [facility] Comment: Interpret with caution, manual microscopic results are from an unspun specimen. Bacteria UA Few (A) None /HPF [facility] Comment: Interpret with caution, manual microscopic results are from an unspun specimen. Squam Epith UA 1 <=4 /HPF [facility] Comment: Interpret with caution, manual microscopic results are from an unspun specimen. Hyaline Cast UA 1 0 - 2 /LPF [facility] Comment: Interpret with caution, manual microscopic results are from an unspun specimen. Specimen (Source) Anatomical Collection Method Collection Time Re ceived Time Location / / Volume Laterality Indwelling 01/07/2022 12:13 01/07/2022 Catheter Urine AM EDT 12:26 AM EDT Resulting Agency Comment Spec In Lab Robert Bailey DO URINE ORDERABLES Performing Organization Address City/State/[place] [address] (ABNORMAL) Urinalysis with reflex Culture (01/07/2022 12:13 AM EDT) [facility] Method Time Signature Glucose UA Negative Negative [facility] mg/dL [facility] Protein UA 30 (A) Negative [facility] mg/dL [facility] Bilirubin UA Negative Negative [facility] Comment: Clinical correlation required for positi ve Urine Bilirubin results as false positive may occur with some drugs and d rug related products. If a false positive is suspected a serum total bili estrella should be considered if clinically indicated. Urobilinogen UA 0.2 Normal mg/dL [facility] pH UA 6.0 5.0 - 8.0 [facility] Blood UA Large (A) Negative mg/dL [facility] Ketones UA 15 (A) Negative mg/dL [facility] Comment: Urinalysis result NOT critical without a combination of Glucose greater than or equal to 500mg/dl AND Ketones greater th an or equal to 80mg/dl. Nitrite UA Negative Negative [facility] Leukocytes UA Negative Negative [facility] LABORATORY Appearance UA Clear Clear [facility] Spec [place] UA 1.025 1.005 - 1.030 [facility] Color UA Yellow [facility] Culture Reflexed No [facility] Specimen (Source) Anatomical Collection Method Collection Time Re ceived Time Location / / Volume Laterality Indwelling 01/07/2022 12:13 01/07/2022 Catheter Urine AM EDT 12:26 AM EDT Resulting Agency Comment Spec In Lab Moisés Mcgill MD URINE ORDERABLES Performing Organization Address City/State/[place] [address] Blood culture (01/06/2022 11:35 PM EDT) [facility] Method Time Signature Blood Culture No growth [facility] at 5 days. [facility]ORY Specimen Anatomical Collection Method Collection Time Receive d Time (Source) Location / / Volume Laterality Blood 01/06/2022 11:35 01/07/2022 PM EDT 12:42 AM EDT Resulting Agency Comment Spec In Lab Moisés Mcgill MD MICROBIOLOGY - BLOOD ORDERAB LES Performing Organization Address City/State/Z[place] [address] (ABNORMAL) Differential, Automated (01/06/2022 11:20 PM EDT) [facility] Method Time Signature Neutrophils % 92.1 % [facility] Neutr Abs (ANC) 8.69 (H) 1.70 - [facility] 6.10 [facility] x10(3)/[facility] L LABORATORY Lymphocytes % 2.1 % [facility] Lymphocytes Abs 0.2 (L) 0.9 - 3.2 [facility] x10(3)/[facility] LABORATORY Monocytes % 3.7 % [facility] Monocyte Abs 0.4 0.3 - 0.9 [facility] x10(3)/[facility] LABORATORY Eosinophils % 1.1 % [facility] Eosinophils Abs 0.1 0.0 - 0.4 [facility] x10(3)/[facility] LABORATORY Basophils % 0.0 % [facility] Basophils Abs 0.0 0.0 - 0.1 [facility] x10(3)/[facility] LABORATORY Immature Gran % 1.00 % [facility] Comment: Immature granulocytes(IG's)percentage an d absolute count will include metamyelocytes, myelocytes, and promyelo cytes. Blood smears from CBCs yielding IG's will be scanned manually for concor dance. If this scan disagrees with the automated IG or if promyelocytes are not ed, a manual differential will be performed. Zara Gran Abs 0.09 (H) 0.00 - 0.04 x10(3)/[facility] LABORATORY Specimen Anatomical Collection Method Collection Time Receive d Time (Source) Location / / Volume Laterality Blood 01/06/2022 11:20 01/06/2022 PM EDT 11:55 PM EDT Resulting Agency Comment Spec In Lab Robert Bailey DO HEMATOLOGY ORDERABLES Performing Organization Address City/State/[place] [address] (ABNORMAL) Hemogram (01/06/2022 11:20 PM EDT) Analysis Performed At Patho logist Time Signature WBC 9.4 4.0 - 9.5 [facility] LABORATORY RBC 2.39 (L) 4.58 - JIA ARASELI 5.54 [facility] x10(6)/[facility] LABORATORY Hemoglobin 8.3 (L) 13.7 - [facility] 16.5 g/dL [facility]ORATORY Hematocrit 23.8 (L) 40.5 - [facility] 48.5 % [facility] LABORATORY MCV 99.6 (H) 82.9 - [facility] 93.1 [facility] LABORATORY MCH 34.7 (H) 27.5 - JIA ARASELI 32.1 pg [facility] LABORATORY MCHC 34.9 32.0 - JIA ARASELI 35.7 g/dL [facility] LABORATORY Platelets 57 (L) 145 - 357 [facility] x10(3)/[facility] LABORATORY RDWSD 60.3 (H) 36.0 - JIA ARASELI 45.0 [facility] LABORATORY RDWCV 16.6 (H) 11.4 - [facility] ARASELI 13.8 % [facility] LABORATORY MPV 11.9 7.6 - 12.9 [facility] LABORATORY nRBC % Auto 0.0 % [facility] nRBC Abs Auto 0.000 0.000 - [facility] 0.000 [facility] x10(3)/[facility] LABORATORY Specimen Anatomical Collection Method Collection Time Receive d Time (Source) Location / / Volume Laterality Blood 01/06/2022 11:20 01/06/2022 PM EDT 11:55 PM EDT Resulting Agency Comment Spec In Lab Robert Bailey DO HEMATOLOGY ORDERABLES Performing Organization Address City/State/[place] [address] Tacrolimus level (01/06/2022 11:20 PM EDT) athologist Signature Tacrolimus Lvl 2.7 ng/mL [facility] Comment: Trough therapeutic range is [...] Mcgill MD CHEMISTRY ORDERABLES Performing Organization Address City/[facility]/ZIP Code Phon e Number [address] Phosphorus (01/06/2022 11:20 PM EDT) athologist [facility] Phosphorus 2.5 2.5 - 4.5 [facility] mg/dL [facility] LABORATORY Specimen Anatomical Collection Method Collection Time Receive d Time (Source) Location / / Volume Laterality Blood 01/06/2022 11:20 01/06/2022 PM EDT 11:55 PM EDT Resulting Agency Comment Spec In Lab Moisés Mcgill MD CHEMISTRY ORDERABLES Performing Organization Address City/[facility]/[place] [address] (ABNORMAL) Magnesium (01/06/2022 11:20 PM EDT) athologist Signature Magnesium 0.52 (L) 0.69 - 1.07 [facility] mmol/L [facility] LABORATORY Specimen Anatomical Collection Method Collection Time Receive d Time (Source) Location / / Volume Laterality Blood 01/06/2022 11:20 01/06/2022 PM EDT 11:55 PM EDT Resulting Agency Comment Spec In Lab Moisés Mcgill MD CHEMISTRY ORDERABLES Performing Organization Address City/[facility]/ZIP Code [place] [address] (ABNORMAL) Basic Metabolic Panel (non-fasting) (01/06/2022 11:20 PM EDT) athologist Signature Glucose Lvl 115 65 - 199 [facility] mg/dL [facility] Comment: Diabetes: >=200 mg/dL plus symp toms BUN 23 (H) 10 - 20 mg/dL [facility] Creatinine 1.37 0.80 - 1.50 mg/dL [facility] Sodium 140 135 - 145 mmol/L [facility] Potassium 3.2 (L) 3.5 - 5.0 mmol/L [facility] Comment: Please note: ??Patients with WBC >100,00 0 may have falsely elevated Potassium levels. ??For accurate Potassium quantif ication in these patients send serum separator tube (gold top) for subsequent determinations. ??Contact the Clinical Chemistry Laboratory if there are any qu estions. Chloride 108 (H) 98 - 107 mmol/L [facility] CO2 17 (L) 22 - 31 mmol/L [facility] Anion Gap 15 5 - 15 mmol/L [facility] Calcium 8.9 8.5 - 10.5 mg/dL [facility] Estimated GFR 55 (L) >=60 mL/min/1.73 m?? [facility] Comment: This patient? s estimated glomerular filtration rate (eGFR) is between 55 mL/min/1.73 m2 (patients with less muscl e mass per kg body weight) and 64 mL/min/1.73 m2 (patients with more muscl e [...] Mcgill MD CHEMISTRY ORDERABLES Performing Organization Address City/[facility]/[place] [address] (ABNORMAL) Hepatic Function Panel (01/06/2022 11:20 PM EDT) P athologist Signature Total Protein 5.6 (L) 6.1 - 8.0 JIA ARASELI g/dL [facility] Albumin 2.8 (L) 3.2 - 5.2 JIA ARASELI g/dL [facility] AST 17 0 - 39 JIA ARASELI unit/L [facility] ALT 10 0 - 55 [facility] ARASELI unit/L [facility] Alk Phos 104 40 - 130 [facility] ARASELI unit/L [facility] Total 0.6 0.2 - 1.3 JIA ARASELI Bilirubin mg/dL [facility] Bili, Direct 0.1 0.0 - 0.3 [facility] ARASELI mg/dL [facility] Specimen Anatomical Collection Method Collection Time Receive d Time (Source) Location / / Volume Laterality Blood 01/06/2022 11:20 01/06/2022 PM EDT 11:55 PM EDT Resulting Agency Comment Spec In Lab Moisés Mcgill MD CHEMISTRY ORDERABLES Performing Organization Address City/[facility]/[place] [address] COVID-19 PCR (01/06/2022 11:10 PM EDT) Patholo gist Method Time Signature SARS-CoV-2 Not Detected Not Detected JIA RNA PCR [facility] Comment: This result should be interpreted [...] of CO VID-19 is performed using the [employer] COVID-19 Direct Assay by [address] Thaddeus herzog as authorized by the FDA issued Emergency Use Authorization (EUA). This assay is intended for In-vitro Diagnostic (IVD) use with nasopharyngeal swabs collected from individuals meeting the CDC criteria for testing. e assay is performed based on the instructions for use and additional guid ance provided by the FDA. Testing is performed in the Microbiology Laboratory within the Department of Pathology and Laboratory Medicine at [facility], certified under the Clinical Laboratory Improvement Amendmen [...] fact sheets at the following FDA website: https://www.fda.gov/medical-devices/msepwycsvmy-zktihja-1396-xwngz-78-durepliex- jkw-lecqnsphkwszyb-btozcpv-devices/onqck-gofvgdpcqqc-axkq SARS-CoV-2 Source JUDICIAL ASSISTANT Swab [facility] Specimen (Source) Anatomical Collection Method Collection Time Re ceived Time Location / / Volume Laterality Nasopharyngeal Swab 01/06/2022 11:10 12/16 PM EDT 12:44 AM EDT Comment: Symptoms->Surveillance Resulting Agency Comment Spec In Lab Moisés Mcgill MD MICROBIOLOGY - GENERAL ORDER BRINA Performing Organization Address City/[facility]/[place] [address] MRSA PCR (01/06/2022 11:10 PM EDT) [facility] Method Time Signature MRSA Result Negative Negative [facility] MRSA Interp Negative for methicillin-resistant Staphylococcus aureus (MRSA) [facility] This test was performed using the GeneXpert?? Dx System an d the Xpert MRSA MEMORIAL Assay. The MRSA target DNA was not detec charlie. The sample processing control and HOSPITAL probe check were valid. The performance of this test was determined by the [facility] Molecular Pathology Laboratory. It has been romelia red by the U.S. Food and Drug Administration for clinical use. Comment: [VERIFIED DATE]01.07.22 Verified By:Lissett Vega (Electronic Signature) Specimen (Source) Anatomical Collection Method Collection Time Re ceived Time Location / / Volume Laterality Nasopharyngeal Swab 01/06/2022 11:10 12/16 PM EDT 12:34 PM EDT Resulting Agency Comment Spec In Lab Moisés Mcgill MD MICROBIOLOGY - GENERAL ORDER BRINA Performing Organization Address [facility] [place] [address] documented in this encounter Visit Diagnoses Diagnosis Paroxysmal atrial fibrillation Atrial fibrillation Acute myeloid leukemia in remission Sepsis documented in this encounter Admitting Diagnoses Diagnosis Sepsis documented in this encounter Administered Medications Inactive Administered Medications - up to 3 most recent administrations Medication Order MAR Action Action Date Dose Rate Site acyclovir (Zovirax) 480 mg New Bag 01/07/2022 11:56 AM EDT 480 mg 259.6 mL/hr in sodium chloride 0.9% 259.6 mL infusion 480 mg (250 mg/m2/dose ? 1.92 m2 Adjusted BSA), Intravenous, EVERY 12 HOURS, First dose on Thu01/06/22 at 2330, Until Discontinued, Administer over 60 Minutes, Indication for (Active or Suspected): Bacteremia/Sepsis New Bag 01/07/2022 12:48 AM EDT 480 mg 259.6 mL/hr acyclovir (Zovirax) 753 mg in New Bag 01/09/2022 3:00 PM EDT 753 m g 265.1 mL/hr sodium chloride 0.9% 265.06 mL infusion 753 mg (10 mg/kg/dose ? 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 New Bag 01/09/2022 6:06 AM EDT 753 mg 265.1 mL/hr New Bag 01/08/2022 10:34 PM EDT 753 mg 265.1 mL/hr acyclovir (Zovirax) tablet 800 mg Given 01/14/2022 8:08 AM EDT 800 mg 800 mg, Oral, 2 TIMES DAILY, First dose on Thu01/09/22 at 2100, Until Discontinued, Routine Given 01/13/2022 8:48 PM EDT 800 mg Given 01/13/2022 10:03 AM EDT 800 mg ampicillin (Omnipen) 2 g vial New 01/09/2022 2:30 PM EDT 2,000 mg 400 mL/hr attach to sodium chloride 0.9% 100 mL Mini-Bag Plus 2,000 mg (2 g), Intravenous, EVERY 4 HOURS SCHEDULED, First dose on Thu01/07/22 at 1700, Until Discontinued, Administer over 15 Minutes, Warning Vesicant/Irritant Medication , Indication for (Active or Suspected): 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 COORDINATOR/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 New 01/09/2022 10:50 AM EDT 2,000 mg 400 mL/hr New Bag 01/09/2022 5:17 AM EDT 2,000 mg 400 mL/hr aspirin chewable tablet 81 mg Given 01/14/2022 8:07 AM EDT 81 mg 81 mg, Oral, DAILY, First dose on Thu01/10/22 at 1000, Until Discontinued, Hold for platelet count <40, Routine Given 01/13/2022 10:02 AM EDT 81 mg Given 01/12/2022 9:35 AM EDT 81 mg calcium carbonate (Tums) chewable tablet Given 01/09/2022 8:51 A M EDT 1,000 mg 1,000 mg 1,000 mg, Oral, 2 TIMES DAILY PRN, Starting on Thu01/08/22 at 1812, Until Thu01/14/22 at 1648, Heartburn, Routine Given 01/08/2022 6:24 PM EDT 1,000 mg camphor-menthoL (Sarna) lotion Given 01/14/2022 8:07 AM EDT Topical (Top), 3 TIMES DAILY, First dose on Thu01/11/22 at 1115, Until Discontinued Given 01/13/2022 8:50 PM EDT Given 01/12/2022 3:00 PM EDT ceFEPime (Maxipime) 2g vial attach to New Bag 01/07/2022 12:07 AM EDT 2 g 200 mL/hr sodium chloride 0.9% 100 mL Mini-Bag Plus 2 g 2 g, Intravenous, 2 TIMES DAILY, First dose on Thu01/06/22 at 2315, Until Discontinued, Administer over 30 Minutes, Indication for (Active or Suspected): Bacteremia/Sepsis cefTRIAXone (Rocephin) 2 g vial attach New Bag 01/09/2022 5:11 PM EDT 2 g 100 mL/hr to sodium chloride 0.9% 50 mL Mini-Bag Plus 2 g, Intravenous, EVERY 12 HOURS, First dose on Thu01/07/22 at 1700, Until Discontinued, Administer over 30 Minutes, Indication for (Active or Suspected): 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/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 New Bag 01/09/2022 4:15 AM EDT 2 g 100 mL/hr New Bag 01/08/2022 5:33 PM EDT 2 g 100 mL/hr enoxaparin (Lovenox) (40 mg/0.4 mL) Given 01/13/2022 8:48 PM EDT 40 mg subcutaneous injection 40 mg 40 mg, Subcutaneous, NIGHTLY, First dose on Thu01/07/22 at 0030, Until Discontinued, Routine Given 01/12/2022 9:24 PM EDT 40 mg Given 01/11/2022 8:44 PM EDT 40 mg flecainide (Tambocor) tablet 50 mg Given 01/14/2022 8:08 AM EDT 50 mg 50 mg, Oral, EVERY 12 HOURS SCHEDULED (2 times per day), First dose on Thu22 at 0900, Until Discontinued, Routine Given 01/13/2022 8:49 PM EDT 50 mg Given 01/13/2022 10:03 AM EDT 50 mg fluconazole (Diflucan) 200 mg in New Bag 01/07/2022 12:08 AM E DT 200 mg 100 mL/hr sodium chloride 0.9% 100 mL infusion 200 mg, Intravenous, NIGHTLY, First dose on 01/06/22 at 2345, Until Discontinued, Administer over 60 Minutes, Indication for (Active or Suspected): Bacteremia/Sepsis, Restricted Antibiotic: Please indicate the most appropriate choice: Off hour exemption for 2 doses (11PM - 7AM) fluconazole (Diflucan) 400 mg in New Bag 01/08/2022 8:14 PM ED T 400 mg 100 mL/hr sodium chloride 0.9% 200 mL infusion 400 mg, Intravenous, NIGHTLY, First dose (after last modification) on 01/07/22 at 2100, Until Discontinued, Administer over 120 Minutes, Indication for (Active or Suspected): Bacteremia/Sepsis, Restricted Antibiotic: Please indicate the most appropriate choice: Off hour exemption for 2 doses (11PM - 7AM) New Bag 01/07/2022 10:26 PM EDT 400 mg 100 mL/hr fluconazole (Diflucan) tablet 400 mg Given 01/13/2022 8:48 PM EDT 400 mg 400 mg, Oral, NIGHTLY, First dose on Kassy 01/09/22 at 2100, Until Discontinued, DO NOT SPLIT, CRUSH OR OPEN, Routine Given 01/12/2022 9:24 PM EDT 400 mg Given 01/11/2022 8:45 PM EDT 400 mg gadoterate meglumine (Dotarem) (0.5 mMol/mL) Given 9:00 PM EDT 16 mLs injection solution 0-100 mL 0-100 mL, Intravenous, ONCE PRN, 1 dose, Starting on Thu01/07/22 at 2059, Until Thu01/07/22 at 2100, Per Protocol, Radiology Contrast, Routine heparin (pf) (porcine) (100 units/mL) fl ush 5 mL syringe 100 Units 100 Units, Intercatheter, EVERY 6 HOURS PRN, Starting on Thu01/10/22 at 1204, Until Thu01/14/22 at 1648, Line Care, Routine heparin (pf) (porcine) (100 units/mL) Given 01/14/2022 2:10 PM E DT 500 Units flush 5 mL syringe 500 Units 500 Units (5 mL), Intravenous, DAILY PRN, 1 dose, Starting on Thu01/14/22 at 1215, Until Thu01/14/22 at 1410, Line Care, Terminal Flush for de-accessing of Implantable Port, Routine HYDROmorphone (Dilaudid) (0.5 mg/0.5 mL) Given 01/13/2022 9:24 P M EDT 0.3 mg injection syringe 0.3 mg 0.3 mg, Intravenous, ONCE, 1 dose, On Thu01/13/22 at 2200, Routine HYDROmorphone (Dilaudid) (0.5 mg/0.5 mL) Given 01/14/2022 12:34 AM EDT 0.4 mg injection syringe 0.4 mg 0.4 mg, Intravenous, ONCE, 1 dose, On Thu01/14/22 at 0115, May give an additional 0.2 mg in 30 minutes once if pain not relieved., Routine HYDROmorphone (Dilaudid) (0.5 mg/0.5 mL) injection syringe 0.4 mg 0.4 mg, Intravenous, EVERY 4 HOURS PRN, Starting on Thu01/14/22 at 0901, Until Thu01/14/22 at 1648, Pain, For ostomy change. May give an additional 0.2 mg in 30 minutes once if pain not relieved., Routine lactated Ringers 1,000 mL IV bolus New Bag 01/12/2022 9:34 AM EDT 333.3 mL/hr at 333.3 mL/hr, Intravenous, ONCE, 1 dose, On Thu01/12/22 at 1000 lactated Ringers 1,000 mL IV bolus New Bag 01/13/2022 1:16 PM EDT 333.3 mL/hr at 333.3 mL/hr, Intravenous, ONCE, 1 dose, On Thu01/13/22 at 1200 lactated ringers infusion Restarted 01/07/2022 4:29 AM EDT 125 mL/hr 125 mL/hr 125 mL/hr, Intravenous, CONTINUOUS, Starting on Thu01/06/22 at 2345, Until Thu01/07/22 at 0819 New Bag 01/06/2022 11:47 PM EDT 125 mL/hr 125 mL/hr lactated ringers infusion New Bag 01/14/2022 9:55 AM EDT 250 mL/hr 250 mL/hr 250 mL/hr, Intravenous, CONTINUOUS, Starting on Thu01/14/22 at 1030, Until Thu01/14/22 at 1429 loperamide (Imodium A-D) capsule 2 mg Given 01/13/2022 8:49 PM EDT 2 mg 2 mg, Oral, 4 TIMES DAILY PRN, Starting on Thu01/12/22 at 1331, Until Thu01/14/22 at 1648, Diarrhea, Do not exceed 16 mg/day., Routine Given 01/12/2022 9:23 PM EDT 2 mg Given 01/12/2022 1:41 PM EDT 2 mg loratadine (Claritin) tablet 10 mg Given 01/12/2022 9:35 AM EDT 10 mg 10 mg, Oral, ONCE, 1 dose, On Thu01/12/22 at 0915, Routine LORazepam (Ativan) (2 mg/mL) injection 0 .5 mg Given 01/07/2022 3:34 AM EDT 0.5 mg 0.5 mg, Intravenous, ONCE PRN, 1 dose, Starting on Thu01/07/22 at 0121, Until Thu01/07/22 at 0334, Anxiety, Routine LORazepam (Ativan) (2 mg/mL) injection 0 .5 mg Given 01/07/2022 7:56 PM EDT 0.5 mg 0.5 mg, Intravenous, ONCE, 1 dose, On Thu01/07/22 at 1815, Please give prior to MRI brain, Routine LORazepam (Ativan) (2 mg/mL) injection 0.5 Given 01/08/2022 10:44 AM EDT 0.5 mg mg 0.5 mg, Intravenous, ONCE, 1 dose, On Thu01/08/22 at 1130, Prior to LP, STAT magnesium oxide (Mag-Ox) tablet 400 mg Given 01/12/2022 10:02 AM EDT 400 mg 400 mg, Oral, 2 TIMES DAILY, First dose on Thu01/12/22 at 1045, Until Discontinued, Routine Magnesium Oxide-Mg AA Chelate 133 mg Tab 532 Given 5:00 PM EDT 532 mg mg 532 mg, Oral, 3 TIMES DAILY, First dose on Thu01/10/22 at 1000, Until Discontinued Given 01/11/2022 9:25 AM EDT 532 mg Given 01/10/2022 8:30 PM EDT 532 mg magnesium sulfate 2 g in sterile water New Bag 01/07/2022 3:18 AM EDT 2 g 25 mL/hr 50 mL infusion 2 g, Intravenous, ONCE, 1 dose, On Thu01/07/22 at 0215, Administer over 120 Minutes magnesium sulfate 2 g in sterile water New Bag 01/07/2022 5:56 PM EDT 2 g 25 mL/hr 50 mL infusion 2 g, Intravenous, EVERY 2 HOURS, 2 doses, First dose on Thu01/07/22 at 1615, Last dose on Thu01/07/22 at 1815, Administer over 120 Minutes 01/07/2022 3:43 PM EDT 2 g 25 mL/hr magnesium sulfate 2 g in sterile water Bag 01/10/2022 4:50 AM EDT 2 g 25 mL/hr 50 mL infusion 2 g, Intravenous, ONCE, 1 dose, On Thu01/10/22 at 0415, Administer over 120 Minutes magnesium sulfate 2 g in sterile water Bag 01/10/2022 9:16 AM EDT 2 g 25 mL/hr 50 mL infusion 2 g, Intravenous, ONCE, 1 dose, On Thu01/10/22 at 0930, Administer over 120 Minutes magnesium sulfate 2 g in sterile water 01/10/2022 1:55 PM EDT 2 g 25 mL/hr 50 mL infusion 2 g, Intravenous, ONCE, 1 dose, On Thu01/10/22 at 1145, Administer over 120 Minutes magnesium sulfate 2 g in sterile water Bag 01/13/2022 6:09 AM EDT 2 g 25 mL/hr 50 mL infusion 2 g, Intravenous, ONCE, 1 dose, On Thu01/13/22 at 0630, Administer over 120 Minutes methylPREDNISolone sod succ (pf) (SOLU-Medrol) Given 0 01/11/2022 9:25 AM EDT 24 mg (40 mg/1 mL) injection 24 mg 24 mg, Intravenous, DAILY, First dose on Thu01/07/22 at 0900, Until Discontinued Given 01/10/2022 8:56 AM EDT 24 mg Given 01/09/2022 9:02 AM EDT 24 mg metoprolol tartrate (Lopressor) tablet 12.5 Given 12/17 8:08 AM EDT 12.5 mg mg 12.5 mg, Oral, EVERY 12 HOURS SCHEDULED (2 times per day), First dose on Thu01/10/22 at 0930, Until Discontinued, Routine Given 01/13/2022 8:48 PM EDT 12.5 mg Given 01/13/2022 10:03 AM EDT 12.5 mg nystatin (Mycostatin) (100,000 Given 01/14/2022 1:42 PM EDT 500, 000 Units units/mL) oral liquid 500,000 Units 500,000 Units, Oral, 4 TIMES DAILY, 28 doses, First dose on Thu01/08/22 at 1000, Last dose on Thu01/14/22 at 2100, Routine Given 01/14/2022 8:08 AM EDT 500,000 Units Given 01/13/2022 8:48 PM EDT 500,000 Units pantoprazole EC (Protonix) tablet 40 mg Given 01/14/2022 8:07 AM EDT 40 mg 40 mg, Oral, DAILY, First dose on Thu01/09/22 at 1745, Until Discontinued, DO NOT CRUSH OR OPEN, Routine Given 01/13/2022 10:03 AM EDT 40 mg Given 01/12/2022 9:35 AM EDT 40 mg pentamidine (Pentam) 300 mg in New Bag 01/10/2022 4:05 PM EDT 300 mg 51.5 mL/hr dextrose 5% 103 mL infusion 300 mg, Intravenous, ONCE, 1 dose, On Thu01/10/22 at 1600, Administer over 120 Minutes, Indication for (Active or Suspected): Prophylaxis, Restricted Antibiotic: Please indicate the most appropriate choice: Pre-approved indication (state the indication in comments field) piperacillin-tazobactam (Zosyn) New Bag 01/07/2022 3:20 PM 3.375 g 12.5 mL/hr 3.375 g vial attach to sodium EDT chloride 0.9% 50 mL Mini-Bag Plus 3.375 g, Intravenous, EVERY 8 HOURS, First dose on Thu01/07/22 at 0745, Until Discontinued, Administer over 4 Hours, Warning Vesicant/Irritant Medication Do not administer or Y-site with lactated ringers., Indication for (Active or Suspected): Pneumonia (Health-Care) New Bag 01/07/2022 7:44 AM EDT 3.375 g 12.5 mL/hr potassium chloride 10 mEq in New Bag 01/07/2022 3:18 AM EDT 10 mEq 100 mL/hr sterile water 100 mL infusion 10 mEq, Intravenous, EVERY 2 HOURS, 2 doses, First dose on Thu01/07/22 at 0215, Last dose on Thu01/07/22 at 0415, Administer over 60 Minutes, Warning Vesicant/Irritant Medication New Bag 01/07/2022 1:59 AM EDT 10 mEq 100 mL/hr potassium chloride 20 mEq in New Bag 01/07/2022 10:50 AM EDT 20 mE q 100 mL/hr sterile water 100 mL infusion 20 mEq, Intravenous, EVERY 2 HOURS, 3 doses, First dose on Thu01/07/22 at 0715, Last dose on Thu01/07/22 at 1115, Administer over 60 Minutes, Warning Vesicant/Irritant Medication New Bag 01/07/2022 9:27 AM EDT 20 mEq 100 mL/hr New Bag 01/07/2022 6:30 AM EDT 20 mEq 100 mL/hr potassium chloride 20 mEq in New Bag 01/07/2022 4:48 PM EDT 20 mEq 100 mL/hr sterile water 100 mL infusion 20 mEq, Intravenous, ONCE, 1 dose, On Thu01/07/22 at 1630, Administer over 60 Minutes, Warning Vesicant/Irritant Medication potassium chloride ER (K-Dur/Klor-Con) tablet Given 1:00 PM EDT 40 mEq 40 mEq 40 mEq, Oral, EVERY 2 HOURS, 2 doses, First dose on Thu01/09/22 at 1015, Last dose on Thu01/09/22 at 1215, 20 mEq tablet may be dissolved in water for administration, Routine Given 01/09/2022 10:51 AM EDT 40 mEq potassium phosphate (monobasic) (K-Phos) Given 01/09/2022 9:45 P M EDT 500 mg tablet 500 mg 500 mg, Oral, 4 TIMES DAILY WITH MEALS & NIGHTLY, 4 doses, First dose on Thu01/09/22 at 0800, Last dose on Thu01/09/22 at 2100, Dissolve tablets in 6-8 oz of water; for best results, soak tablets in water for 2-5 minutes, then stir and give to patient. Each 500 mg tablet contains 3.7 mEq of potassium and 3.68 mmol of phosphate., Routine Given 01/09/2022 5:10 PM EDT 500 mg Given 01/09/2022 1:00 PM EDT 500 mg potassium, sodium phosphates (Neutra-Phos) Given 01/10/2022 8:31 PM EDT 3 g 280-160-250 mg oral packet 3 g 3 g, Oral, 4 TIMES DAILY, 4 doses, First dose on Thu01/10/22 at 0900, Last dose on Thu01/10/22 at 2100, Take with full glass of water, Routine Given 01/10/2022 4:04 PM EDT 3 g Given 01/10/2022 1:55 PM EDT 3 g potassium, sodium phosphates (Neutra-Phos) Given 01/11/2022 8:44 PM EDT 3 g 280-160-250 mg oral packet 3 g 3 g, Oral, 4 TIMES DAILY, 4 doses, First dose (after last reorder) on 01/11/22 at 0900, Last dose on Thu01/11/22 at 2100, Take with full glass of water, Routine Given 01/11/2022 5:00 PM EDT 3 g Given 01/11/2022 12:05 PM EDT 3 g predniSONE (Deltasone) tablet 30 mg Given 01/14/2022 8:07 AM EDT 30 mg 30 mg, Oral, DAILY, First dose on Thu01/12/22 at 0900, Until Discontinued, Routine Given 01/13/2022 10:03 AM EDT 30 mg Given 01/12/2022 9:35 AM EDT 30 mg psyllium husk (with sugar) (Metamucil) Oral, 2 TIMES DAILY WITH MEALS, First dose on 01/13 at 0930, Until Discontinued, Routine rosuvastatin (Crestor) tablet 10 mg Given 01/13/2022 5:31 PM EDT 10 mg 10 mg, Oral, EVERY EVENING, First dose on Thu01/10/22 at 1700, Until Discontinued, Routine Given 01/12/2022 5:32 PM EDT 10 mg Given 01/11/2022 5:00 PM EDT 10 mg sodium chloride 0.9 % (flush) (BD PosiFlush Given 01/14/2022 8:0 8 AM EDT 5 mLs Normal Saline 0.9) flush 5 mL 5 mL, Intravenous, 2 TIMES DAILY, First dose on Thu01/06/22 at 2345, Until Discontinued, Routine Given 01/13/2022 9:00 PM EDT 5 mLs Given 01/13/2022 10:04 AM EDT 10 mLs sodium chloride 0.9% 1,000 mL IV bolus New Bag 01/10/2022 8:56 AM EDT 333.3 mL/hr at 333.3 mL/hr, Intravenous, ONCE, 1 dose, On Thu01/10/22 at 0800 sodium chloride 0.9% infusion New Bag 01/08/2022 9:49 AM EDT 100 mL/hr 100 mL/hr 100 mL/hr, Intravenous, CONTINUOUS, Starting on Thu01/07/22 at 0915, Until Thu01/09/22 at 0917 New Bag 01/07/2022 5:56 PM EDT 100 mL/hr 100 mL/hr New Bag 01/07/2022 9:25 AM EDT 100 mL/hr 100 mL/hr tacrolimus (Prograf) 0.17 mg in New Bag 01/09/2022 9:08 AM EDT 0.17 mg 8.39 mL/hr dextrose 5% Non-PVC 25.17 mL infusion 0.17 mg, Intravenous, EVERY 12 HOURS SCHEDULED (2 times per day), First dose on Thu01/07/22 at 0000, Until Discontinued, Administer over 3 Hours, Tacrolimus (Prograf) initial total daily dose is 0.03 mg/kg/day to be ordered in one of two ways: - Divided into two doses and given at 12 hour intervals with a 3-hour infusion (default) or - Divided into two doses and given at 12 hour intervals with a 12-hour infusion (alternative to equal a 24-hour continuous infusion). Additional dose adjustments based on levels. Use only Non-PVC Tubing to Administer Dose New Bag 01/08/2022 8:11 PM EDT 0.17 mg 8.39 mL/hr New Bag 01/08/2022 9:05 AM EDT 0.17 mg 8.39 mL/hr tacrolimus (Prograf) capsule 0.5 mg Given 01/10/2022 8:57 AM EDT 0.5 mg 0.5 mg, Oral, DAILY, First dose (after last modification) on Thu01/10/22 at 0900, Until Discontinued, DO NOT SPLIT, CRUSH OR OPEN, Routine tacrolimus (Prograf) capsule 1 mg Given 01/13/2022 8:49 PM EDT 1 mg 1 mg, Oral, NIGHTLY, First dose on Thu01/09/22 at 2100, Until Discontinued, DO NOT SPLIT, CRUSH OR OPEN, Routine Given 01/12/2022 9:23 PM EDT 1 mg Given 01/11/2022 8:44 PM EDT 1 mg tacrolimus (Prograf) capsule 1 mg Given 01/14/2022 8:08 AM EDT 1 mg 1 mg, Oral, DAILY, First dose (after last modification) on Thu01/11/22 at 0900, Until Discontinued, DO NOT SPLIT, CRUSH OR OPEN, Routine Given 01/13/2022 10:03 AM EDT 1 mg Given 01/12/2022 9:35 AM EDT 1 mg tacrolimus (Prograf) capsule 1.5 mg 1.5 mg, Oral, NIGHTLY, First dose (after last modification) on Thu01/14/22 at 2100, Until Discontinued, DO NOT SPLIT, CRUSH OR OPEN, R outine tamsulosin (Flomax) capsule 0.4 mg Given 01/14/2022 8:08 AM EDT 0.4 mg 0.4 mg, Oral, DAILY, First dose on Thu01/09/22 at 1745, Until Discontinued, DO NOT CRUSH OR OPEN, Routine Given 01/13/2022 10:03 AM EDT 0.4 mg Given 01/12/2022 9:35 AM EDT 0.4 mg vancomycin (Vancocin) 1.25 gram New Bag 01/07/2022 1:36 AM EDT 1,250 mg 200 mL/hr in sodium chloride 0.9% 250 mL infusion 1,250 mg, Intravenous, ONCE, 1 dose, On Thu01/07/22 at 0000, Administer over 75 Minutes, Maximum infusion rate is 1 gram/hour. If flushing of the face, neck, upper body, arms, and/or back occurs decrease infusion rate by 50% to reduce the severity of symptoms. This medication may have an associated drug lab level. Please see MAR for scheduled level. Warning Vesicant/Irritant Medication , Indication for (Active or Suspected): Bacteremia/Sepsis vancomycin (Vancocin) 1.25 gram New Bag 01/08/2022 6:28 PM EDT 1,250 mg 200 mL/hr in sodium chloride 0.9% 250 mL infusion 1,250 mg, Intravenous, EVERY 18 HOURS, First dose on Thu01/07/22 at 2000, Until Discontinued, Administer over 75 Minutes, Maximum infusion rate is 1 gram/hour. If flushing of the face, neck, upper body, arms, and/or back occurs decrease infusion rate by 50% to reduce the severity of symptoms. This medication may have an associated drug lab level. Please see MAR for scheduled level. Warning Vesicant/Irritant Medication , Indication for (Active or Suspected): Bacteremia/Sepsis New Bag 01/07/2022 11:40 PM EDT 1,250 mg 200 mL/hr documented in this encounter Active and Recently Administered Medications Times are shown in EDT. Scheduled Medication Order 01/12/2022 01/13/2022 01/14/2022 acyclovir (Zovirax) tablet 800 mg 0935 (Given - Provid er: Lanny Krishnan RN)2122 (Given - Provider: Radha Marmolejo RN) 1003 (Given - Provider: Carie Durant RN)204 (Given - Provider: Lanny Krishnan RN) 0808 (Given - Provider: Caridad Mcdonald RN) 800 mg, Oral, 2 TIMES DAILY, First dose on Kassy 01/09/22 at 2100, Until Discontinued, Routine aspirin chewable tablet 81 mg 0935 (Given - Provider: Jimmy Krishnan RN) 1002 (Given - Provider: Carie Durant RN) 0807 (Given - Provider: Caridad Mcdonald, [place]) 81 mg, Oral, DAILY, First dose on Thu at 1000, Until Discontinued, Hold for platelet count <40, Routine camphor-menthoL (Sarna) lotion 0936 (Given - Provider: Lanny Krishnan RN)1500 (Given - Provider: Lanny Krishnan RN)2100 (Not Given - Provider: Radha Marmolejo RN - Reason: Patient/family refused) 1003 (Not Given - Provider: Carie Durant RN - Reason: Patient/family refused)1435 (Not Given - Provider: Carie Durant RN - Reason: Patient/family refused)2049 (Given - Provider: Lanny Krishnan RN) 0807 (Given - Provider: Caridad Mcdonald RN) Topical (Top), 3 TIMES DAILY, First dose on Thu01/11/22 at 1115, Until Discontinued enoxaparin (Lovenox) (40 mg/0.4 mL) subcutaneous injec tion 40 mg 2123 (Given - Provider: Radha Marmolejo RN) 2047 (Given - Provider: Lanny Krishnan RN) 40 mg, Subcutaneous, NIGHTLY, First dose on Thu01/07/22 at 0030, Until Discontinued, Routine flecainide (Tambocor) tablet 50 mg 934 (Given - Provi adam: Lanny Krishnan RN)2126 (Given - Provider: Radha Marmolejo RN) 100 (Given - Provider: Carie Durant RN)2048 (Given - Provider: Lanny Krishnan RN) 0808 (Given - Provider: Caridad Mcdonald RN) 50 mg, Oral, EVERY 12 HOURS SCHEDULED (2 times per day), First dose on Thu01/11/22 at 0900, Until Discontinued, Routine fluconazole (Diflucan) tablet 400 mg 2123 (Given - Provider: Radha Marmoeljo RN) 2047 (Given - Provider: Lanny Krishnan RN) 400 mg, Oral, NIGHTLY, First dose on Thu01/09/22 at 2100, Until Discontinued, DO NOT SPLIT, CRUSH OR OPEN, Routine HYDROmorphone (Dilaudid) (0.5 mg/0.5 mL) injection syringe 0 .3 mg (COMPLETED) 2123 (Given - Provider: Lanny Krishnan RN) 0.3 mg, Intravenous, ONCE, 1 dose, On Thu01/13/22 at 2200, Routi ne HYDROmorphone (Dilaudid) (0.5 mg/0.5 mL) injection syringe 0.4 m g (COMPLETED) 33 (Given - Provider: Lanny Krishnan RN) 0.4 mg, Intravenous, ONCE, 1 dose, On 01/14/22 at 0115, May give an additional 0.2 mg in 30 minutes once if pain not relieved., Routine lactated Ringers 1,000 mL IV bolus (COMPLETED) 0934 (N ew Bag - Provider: Lanny Krishnan RN)1234 (Stopped - Provider: Lanny Krishnan RN) at 333.3 mL/hr, Intravenous, ONCE, 1 dose, On Thu01/12/22 at 100 0 lactated Ringers 1,000 mL IV bolus (COMPLETED) 1316 (New Bag - Provider: Carie Durant RN)1616 (Stopped - Provider: Carie Durant RN) at 333.3 mL/hr, Intravenous, ONCE, 1 dose, On Thu01/13/22 at 120 0 loratadine (Claritin) tablet 10 mg (COMPLETED) 0935 (G iven - Provider: Lanny Krishnan RN) 10 mg, Oral, ONCE, 1 dose, On Thu01/12/22 at 0915, Routine magnesium oxide (Mag-Ox) tablet 400 mg (CANCELED) 1002 (Given - Provider: Lanny Krishnan RN) 400 mg, Oral, 2 TIMES DAILY, First dose on Thu01/12/22 at 1045, Until Discontinued, Routine magnesium sulfate 2 g in sterile water 50 mL infusion (COMPL ETED) 06 (New Bag - Provider: Radha Marmolejo RN)08 (Stopped - Provider: Carie Durant RN) 2 g, Intravenous, ONCE, 1 dose, On Thu at 0630, Administer over 120 Minutes metoprolol tartrate (Lopressor) tablet 12.5 mg 0935 (G iven - Provider: Lanny Krishnan RN)2122 (Given - Provider: Radha Marmolejo RN) 1003 (Given - Provider: Carie Durant RN)2048 (Given - Provider: Lanny Krishnan RN) 0808 (Given - Provider: Caridad Mcdonald RN) 12.5 mg, Oral, EVERY 12 HOURS SCHEDULED (2 times per day), First dose on Thu01/10/22 at 0930, Until Discontinued, Routine nystatin (Mycostatin) (100,000 units/mL) oral liquid 5 00,000 Units 0935 (Given - Provider: Lanny Krishnan RN)1341 (Given - Provider: Lanny Krishnan RN)1732 (Given - Provider: Lanny Krishnan RN)2124 (Given - Provider: Radha Marmolejo RN) 1002 (Given - Provider: Carie Durant RN)1316 (Given - Provider: Carie Durant RN)1731 (Given - Provider: Carie Durant RN)2048 (Given - Provider: Lanny Krishnan RN) 0808 (Given - Provider: Caridad Mcdonald RN)1342 (Given - Provider: Caridad Mcdonald RN) 500,000 Units, Oral, 4 TIMES DAILY, 28 d oses, First dose on Thu01/08/22 at 1000, Last dose on Thu01/14/22 at 2100, Routine pantoprazole EC (Protonix) tablet 40 mg 0935 (Given - Provider: Lanny Krishnan RN) 1003 (Given - Provider: Carie Durant RN) 0807 (Gi lise - Provider: Caridad Mcdonald RN) 40 mg, Oral, DAILY, First dose on Kassy at 1745, Until Discontinued, DO NOT CRUSH OR OPEN, Routine predniSONE (Deltasone) tablet 30 mg 0935 (Given - Prov ider: Lanny Krishnan RN) 1003 (Given - Provider: Carie Durant RN) 0807 (Gi lise - Provider: Caridad Mcdonald RN) 30 mg, Oral, DAILY, First dose on Thu at 0900, Until Discontinued, Routine psyllium husk (with sugar) (Metamucil) 1 004 (Not Given - Provider: Carie Durant RN - Reason: Patient/family refused - Comment: aware)1642 (Not Given - Provider: Carie Durant RN - Reason: Patient/family refused) 0800 (Not Given - Provider: Caridad Mcdonald RN - Reason: Patient/family refused) Oral, 2 TIMES DAILY WITH MEALS, First do se on 01/13/22 at 0930, Until Discontinued, Routine rosuvastatin (Crestor) tablet 10 mg 173 (Given - Prov ider: Lanny Krishnan RN) 173 (Given - Provider: Carie Durant RN) 10 mg, Oral, EVERY EVENING, First dose o n 01/10/22 at 1700, Until Discontinued, Routine sodium chloride 0.9 % (flush) (BD PosiFlush Normal Arturo ine 0.9) flush 5 mL 0936 (Given - Provider: Lanny Krishnan RN)2123 (Given - Provider: Radha Marmolejo RN) 100 (Given - Provider: Carie Durnat RN)2099 (Given - Provider: Lanny Krishnan RN) 0808 (Given - Provider: Caridad Mcdonald RN) 5 mL, Intravenous, 2 TIMES DAILY, First dose on Thu01/06/22 at 2345, Until Discontinued, Routine tacrolimus (Prograf) capsule 1 mg (CANCELED) 2122 (Giv en - Provider: Radha Marmolejo RN) 2048 (Given - Provider: Lanny Krishnan RN) 1 mg, Oral, NIGHTLY, First dose on Kassy at 2100, Until Discontinued, DO NOT SPLIT, CRUSH OR OPEN, Routine tacrolimus (Prograf) capsule 1 mg 0935 (Given - Provider: Radha Krishnan RN) 1003 (Given - Provider: Carie Durant RN) 0808 (Given - Provider: Caridad Mcdonald, [place]) 1 mg, Oral, DAILY, First dose (after las t modification) on 01/11/22 at 0900, Until Discontinued, DO NOT SPLIT, CRUSH OR OPEN, Routine tacrolimus (Prograf) capsule 1.5 mg 1.5 mg, Oral, NIGHTLY, First dose (after last modification) on Thu01/14/22 at 2100, Until Discontinued, DO NOT SPLIT, CRUSH OR OPEN, Routine tamsulosin (Flomax) capsule 0.4 mg 0935 (Given - Provi adam: Lanny Krishnan RN) 1003 (Given - Provider: Carie Durant RN) 0808 (Gi lise - Provider: Caridad Mcdonald RN) 0.4 mg, Oral, DAILY, First dose on Kassy at 1745, Until Discontinued, DO NOT CRUSH OR OPEN, Routine Continuous Medication Order 01/12/2022 01/13/2022 01/14/2022 lactated ringers infusion 0955 ( New Bag - Provider: Caridad Mcdonald, [place]) 250 mL/hr, Intravenous, CONTINUOUS, Star ting on Thu01/14/22 at 1030, Until Thu01/14/22 at 1429 PRN Medication Order 01/12/2022 01/13/2022 01/14/2022 calcium carbonate (Tums) chewable tablet 1,000 mg 1,000 mg, Oral, 2 TIMES DAILY PRN, Start ing on Thu01/08/22 at 1812, Until Thu01/14/22 at 1648, Heartburn, Routine heparin (pf) (porcine) (100 units/mL) flush 5 mL syringe 100 Uni ts 100 Units, Intercatheter, EVERY 6 HOURS PRN, Starting on Thu01/10/22 at 1204, Until Thu01/14/22 at 1648, Line Care, Routine heparin (pf) (porcine) (100 units/mL) flush 5 mL syringe 500 Units (COMPLETED) 1410 (Given - Provider: Caridad Mcdonald RN) 500 Units (5 mL), Intravenous, DAILY PRN , 1 dose, Starting on Thu01/14/22 at 1215, Until Discontinued, Line Care, Terminal Flush for de-accessing of Implantable Port, Routine HYDROmorphone (Dilaudid) (0.5 mg/0.5 mL) injection syringe 0.4 m g 0.4 mg, Intravenous, EVERY 4 HOURS PRN, Starting on Thu01/14/22 at 0901, Until Thu01/14/22 at 1648, Pain, For ostomy change. May give an additional 0.2 mg in 30 minutes once if pain not relieved., Routine lidocaine (Xylocaine) 1% (10 mg/mL) injection 3 mg 3 mg (0.3 mL), Subcutaneous, ONCE PRN, 1 dose, Starting on Thu01/06/22 at 2257, Until Thu01/14/22 at 1648, for discomfort with PIV insertion, Routine loperamide (Imodium A-D) capsule 2 mg 1341 (Given - Pr ovider: Lanny Krishnan RN)3 (Given - Provider: Radha Marmolejo RN) 2048 (Given - Provider: Lanny Krishnan RN) 2 mg, Oral, 4 TIMES DAILY PRN, Starting on 01/12/22 at 1331, Until Thu01/14/22 at 1648, Diarrhea, Do not exceed 16 mg/day., Routine sodium chloride 0.9 % (flush) (BD PosiFlush Normal Saline 0.9) f lush 5-20 mL 5-20 mL, Intravenous, EVERY 1 MIN PRN, S tarting on Thu01/06/22 at 2257, Until Thu01/14/22 at 1648, flush, Flush pertains to all indwelling lines. Flush per protocol found in the job aid using the link provided on this medication record., Routine documented in this encounter Additional Health Concerns Infection Onset Date Last Indicated Resolved Time History of C. difficileComment: C. diffiicile 08/20/2021 testing positive 05/25/21. documented as of this encounter Care Teams Service Line Layer Relationship Specialty Start Date End Date Beatriz Maurice PA PCP - General Family Medicine 05/06/21 [address] [place] [address] documented as of this encounter
--- OUTSIDE RECORDS SUMMARY | 2022-02-14 11:08 | XMS_ITS | Encounter Summary ---
:1960 Author Organization [facility] Address [address] [place] [address] Care Team Providers Name Role Phone Beatriz Maurice Primary Care Provider Encounter Details Date Type Department Care Team Description 12/29/2021 Ancillary Procedure Radiology Library at Aruna Maurice [facility] LEISA Butts [facility] [address] [place] [address] [place] [address] [phone] Social History Tobacco Use Types Packs/Day Years [...] MD [facility] [address] HEMATOLOGY/[place] [address] Miroslava Pelayo APRN [facility] [address] HEMATOLOGY/[place] [address] 02/24/2022 Office Visit Wound Care 02/24/2022 Appointment Hematology and Oncology 02/26/2022 Office Visit Neurology Leni Bustamante MD [facility] [address] NEUROLOGY DEPT. [place], [place] [address] (Wo rk) documented as of this encounter Procedures Procedure Name Priority Date/Time Associated Diagnosis Comme nts FILM LIBRARY Routine 12/29/2021 12:00 AM Results for this STORAGE ONLY CT EDT procedure ar e in CHEST ABDOMEN the results PELVIS section. documented in this encounter Results Film Library- Storage Only CT Chest Abdomen Pelvis (12/29/2021 12:00 AM EDT) Specimen (Source) Anatomical Location Collection Method / Collectio n Time Received Time / Laterality Volume Narrative RAD - 01/05/2022 8:23 PM EDT This exam is auto-finalizing. It's purpo se is for storage only. Beatriz DE LA FUENTE IMElaine FILM LIBRARY ORDERABLES Performing Organization Address City/State/ZIP Code Phon e Number [place], [place] documented in this encounter Visit Diagnoses Not on filedocumented in this encounter Additional Health Concerns Infection Onset Date Last Indicated Resolved Time History of C. difficileComment: C. diffiicile 08/20/2021 testing positive 05/25/21. documented as of this encounter Care Teams Web Press Jogger Relationship Specialty Start Date End Date Beatriz Maurice PA PCP - General Family Medicine 05/06/21 [address] [place] [address] documented as of this encounter
--- OUTSIDE RECORDS SUMMARY | 2022-02-14 11:08 | XMS_ITS | Encounter Summary ---
:1960 Author Organization [facility] Address [facility] [place] [address] Care Team Providers Name Role Phone Beatriz Maurice Primary Care Provider Reason for Visit Auth/Cert Specialty Diagnoses / Procedures Referred By Contact Refer red To Contact Diagnoses AML Procedures PRO DIAGNOSTIC BONE MARROW BIOPSIES & ASPIRATIONS (OSC MSURG) BONE MARROW BIOPSY AND ASPIRATION; DIAGNOSTIC Referral ID Status Reason Start Date Expiration Date Visits Requ ested Visits Authorized [id number] 1 1 Encounter Details Date Type Department Care Team Description 12/23/2021 Hospital Encounter Hematology and Hypomag nesemia; Oncology at [facility] STACIE (acute kidney injury); [facility] H/O Clost ridium difficile infection; Drive Colostomy in place; [place] [address] Acute leukemia in remission; [phone] Anemia in neopl astic disease; Weakness acquir [...] Sig Dispensed Refills Start Date End Date Colostomy Belt Dispense 1 [employer] [place] 1 each 11 2 (Ostomy Belt Medium) [...] 30 minutes prior to access. Ostomy Supplies [facility] Dispense 2 boxes ( 20 each 022 10/box) of [employer] Barrier rings #[id number] per month. Ostomy Supplies Dispense 1 bottle of 28.3 g 5 08/20/2021 Powder Adapt stoma powder #[id number] every other month. Ostomy Supplies [facility] Dispense 2 boxes 20 each 11 2 (10/box) of [employer] [place] Soft Convex One-piece Pouch #[id number] per month. Ostomy Supplies [facility] Dispense 2 boxes 40 each 11 2 (20/box) of Brava Elastic Barrier strips #[id number] per month. Ostomy Supplies [facility] Dispense 1 box 50 each 11 08/20/2021 (50/box) of a generic no-sting skin barrier wipe per month. dronabinoL (Marinol) Take 1 capsule by 28 capsule 0 12/21/19 22 01/14/2022 5 mg Capsule mouth 2 times daily. fluconazole Take 1 tablet by mouth 0 [...] 2 mg Capsule mouth 3 times daily. tacrolimus (Prograf) Take 1 capsule by 60 capsule 3 12/03/19 22 01/14/2022 0.5 mg mouth 2 times daily. CapsuleIndications: Acute myeloid leukemia in remission vancomycin (Vancocin) Take 1 capsule by 60 capsule 5 11/18/ 022 02/03/2022 125 mg Capsule mouth 2 [...] documented as of this encounter Progress Notes Jose L Jiang RN - 12/23/2021 10:14 AM EDT Patient Name: Herber Iverson Jr. Patient Age: 61 y.o. Birthdate: 1960 Admit date: 12/23/2021 Attending Physician: No att. providers found Access visit. See MAR and/or flowsheet. documented in this encounter Plan of Treatment Upcoming Encounters Date Type Specialty Care Team Description 02/18/2022 Infusion Hematology and Oncology 02/21/2022 Infusion Hematology and Oncology 02/24/2022 Appointment Hematology and Oncology 02/24/2022 Office Visit Hematology and Oncology Parviz Modi MD [facility] DR HEMATOLOGY/[place] [address] Miroslava Pelayo, SALES AND MARKETING PROFESSIONAL [facility] HEMATOLOGY/[place] [address] 02/24/2022 Office Visit Wound Care 02/24/2022 Appointment Hematology and Oncology 02/26/2022 Office Visit Neurology Leni Bustamante MD [facility] NEUROLOGY DEPT. [place], [place] [address] (Wo rk) documented as of this encounter Procedures Procedure Name Priority Date/Time Associated Comments Diagnosis HEMOGRAM STAT 12/23/2021 10:10 Hypomagnesemia Results for this AM EDT STACIE (acute kidney procedure are in injury) the results H/O Clostridium section. 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 in neoplastic disea se Weakness acquired in ICU S/P allogeneic bone marrow transplan t Dehydration DIFFERENTIAL, STAT 12/23/2021 10:10 Hypomagnesemia Results for this AUTOMATED AM EDT STACIE (acute kidney procedure are in injury) the results H/O Clostridium section. 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 in neoplastic disea se Weakness acquired in ICU S/P allogeneic bone marrow transplan t Dehydration HC PCH EBV QUANT Routine 12/23/2021 10:10 S/P allogeneic bone Results for this [facility] AM EDT marrow transplant procedure are in the results section. HC FK-506 (TACROLIMUS) Routine 12/23/2021 10:10 S/P allogeneic bone Results for this AM EDT marrow transplant procedure are in the results section. HC CMV QUANT Routine 12/23/2021 10:10 S/P [...] transplan t Dehydration HC IGG, SERUM Routine 12/23/2021 10:10 S/P allogeneic bone Res ults for this AM EDT marrow transplant procedure are in the results section. COMPREHENSIVE Routine 12/23/2021 10:10 Hypomagnesemia Results for this METABOLIC PANEL AM EDT STACIE (acute kidney procedu re are in (NON-FASTING) injury) the results H/O Clostridium section. 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 in neoplastic disea se Weakness acquired in ICU S/P allogeneic bone marrow transplan t Dehydration documented in this encounter Results (ABNORMAL) Differential, Automated (12/23/2021 10:10 AM EDT) [facility] Method Time Signature Neutrophils % 77.4 % [facility] Neutr Abs (ANC) 6.42 (H) 1.70 - [facility] 6.10 [facility] x10(3)/[facility] LABORATORY Lymphocytes % 10.9 % [facility] Lymphocytes Abs 0.9 0.9 - 3.2 [facility] x10(3)/[facility] LABORATORY Monocytes % 7.5 % [facility] Monocyte Abs 0.6 0.3 - 0.9 [facility] x10(3)/[facility] LABORATORY Eosinophils % 2.8 % [facility] Eosinophils Abs 0.2 0.0 - 0.4 [facility] x10(3)/[facility] LABORATORY Basophils % 0.7 % [facility] Basophils Abs 0.1 0.0 - 0.1 [facility] x10(3)/[facility] LABORATORY Immature Gran % 0.70 % [facility] Comment: Immature granulocytes(IG's)percentage an d absolute count will include metamyelocytes, myelocytes, and promyelo cytes. Blood smears from CBCs yielding IG's will be scanned manually for concor dance. If this scan disagrees with the automated IG or if promyelocytes are not ed, a manual differential will be performed. Zara Gran Abs 0.06 (H) 0.00 - 0.04 x10(3)/[facility] LABORATORY Specimen Anatomical Collection Method Collection Time Receive d Time (Source) Location / / Volume Laterality Blood 12/23/2021 10:10 12/23/2021 AM EDT 10:22 AM EDT Resulting Agency Comment Spec In Lab Parviz Modi MD HEMATOLOGY ORDERABLES Performing Organization Address City/State/[place] [address] (ABNORMAL) Hemogram (12/23/2021 10:10 AM EDT) Analysis Performed At Patho logist Time Signature WBC 8.3 4.0 - 9.5 [facility] x10(3)/[facility] LABORATORY RBC 2.93 (L) 4.58 - [facility] 5.54 [facility] x10(6)/[facility] LABORATORY Hemoglobin 9.8 (L) 13.7 - [facility] 16.5 g/dL [facility] LABORATORY Hematocrit 29.2 (L) 40.5 - [facility] 48.5 % [facility] LABORATORY MCV 99.7 (H) 82.9 - [facility] 93.1 [facility] LABORATORY MCH 33.4 (H) 27.5 - [facility] 32.1 pg [facility] MCHC 33.6 32.0 - [facility] 35.7 g/dL [facility]ORY Platelets 58 (L) 145 - 357 [facility] x10(3)/[facility] LABORATORY RDWSD 71.8 (H) 36.0 - [facility] 45.0 [facility] LABORATORY RDWCV 19.6 (H) 11.4 - [facility] 13.8 % [facility] LABORATORY MPV 12.2 7.6 - 12.9 [facility] LABORATORY nRBC % Auto 0.0 % [facility] nRBC Abs Auto 0.000 0.000 - [facility] 0.000 [facility] x10(3)/[facility] LABORATORY Specimen Anatomical Collection Method Collection Time Receive d Time (Source) Location / / Volume Laterality Blood 12/23/2021 10:10 12/23/2021 AM EDT 10:22 AM EDT Resulting Agency Comment Spec In Lab Parviz Modi MD HEMATOLOGY ORDERABLES Performing Organization Address City/State/ZIP Code Phon e Number [facility] [address] CMV PCR, Quantitative (12/23/2021 10:10 AM EDT) [facility] Method Time Signature CMV Quant Not Detected Not Detected [facility] (Numeric) IU/mL [facility] Comment: Indication for Study: [...] (Source) Location / / Volume Laterality Blood 12/23/2021 10:10 12/25/2021 7:24 AM EDT AM EDT Resulting Agency Comment Spec In Lab Parviz Modi MD IMMUNOLOGY ORDERABLES Performing Organization Address City/[facility]/ZIP Code Phon e Number [facility] [address] EBV PCR Quantitative (12/23/2021 10:10 AM EDT) [facility] Method Time Signature EBV DNA BY Undetected Undetected [facility] PCR IU/mL [facility] Comment: Result in log IU/mL is Undetected. ADDITIONAL INFORMATIO N The quantification range of this assay i s 35 to 100,000,000 IU/mL (1.54 log to 8.00 log IU/mL). Test ing was performed using the jasmeet EBV test ([employer] with the jasmeet 6800 System. Test Performed by: [facility] [address] [id number] Brand Sales Manager: Randal Aparicio M.D. Ph. D.; [facility]# [id number] Specimen Anatomical Collection Method Collection Time Receive d Time (Source) Location / / Volume Laterality Blood 12/23/2021 10:10 12/23/2021 4:25 AM EDT PM EDT Resulting Agency Comment Spec In Lab Parviz Mdoi MD IMMUNOLOGY ORDERABLES Performing Organization Address City/[facility]/[place] [address] IgG (12/23/2021 10:10 AM EDT) athologist Signature IgG 1,158 700 - 1,600 [facility] mg/dL [facility] Comment: Pediatric Reference Intervals obtained f rom the Caliper Reference Interval project. [email or web address] Specimen Anatomical Collection Method Collection Time Receive d Time (Source) Location / / Volume Laterality Blood 12/23/2021 10:10 12/23/2021 AM EDT 10:22 AM EDT Resulting Agency Comment Spec In Lab Parviz Modi MD IMMUNOLOGY ORDERABLES Performing Organization Address City/[facility]/ZIP Code Phon e Number [address] Tacrolimus level (12/23/2021 10:10 AM EDT) athologist Signature Tacrolimus Lvl 4.8 ng/mL [facility] Comment: Trough therapeutic range is [...] (Source) Location / / Volume Laterality Blood 12/23/2021 10:10 12/23/2021 AM EDT 10:22 AM EDT Resulting Agency Comment Spec In Lab Parviz Modi MD CHEMISTRY ORDERABLES Performing Organization Address City/[facility]/[place] [address] (ABNORMAL) Comprehensive metabolic panel (non-fasting) (12/23/2021 10:10 AM EDT) P athologist Signature Glucose Lvl 108 65 - 199 [facility] mg/dL [facility] Comment: Diabetes: >=200 mg/dL plus symp toms BUN 27 (H) 10 - 20 mg/dL [facility] Creatinine 1.99 (H) 0.80 - 1.50 mg/dL [facility] Sodium 135 135 - 145 mmol/L [facility] Potassium 3.9 3.5 - 5.0 mmol/L [facility] Comment: Please note: ??Patients with WBC >100,00 0 may have falsely elevated Potassium levels. ??For accurate Potassium quantif ication in these patients send serum separator tube (gold top) for subsequent determinations. ??Contact the Clinical Chemistry Laboratory if there are any qu estions. Chloride 103 98 - 107 mmol/L [facility] CO2 17 (L) 22 - 31 mmol/L [facility] Anion Gap 15 5 - 15 mmol/L [facility] Calcium 9.3 8.5 - 10.5 mg/dL [facility] Total Protein 6.7 6.1 - 8.0 g/dL [facility] Albumin 4.0 3.2 - 5.2 g/dL [facility] AST 17 0 - 39 unit/L [facility] ALT 20 0 - 55 unit/L [facility] Alk Phos 197 (H) 40 - 130 unit/L [facility] Total Bilirubin 0.6 0.2 - 1.3 mg/dL [facility] Estimated GFR 35 (L) >=60 mL/min/1.73 m?? [facility] Comment: This patient? s estimated glomerular filtration rate (eGFR) is between 35 mL/min/1.73 m2 (patients with less muscl e mass per kg body weight) and 41 mL/min/1.73 m2 (patients with more muscl e [...] (Source) Location / / Volume Laterality Blood 12/23/2021 10:10 12/23/2021 AM EDT 10:22 AM EDT Resulting Agency Comment Spec In Lab Parviz Modi MD CHEMISTRY ORDERABLES Performing Organization Address City/[facility]/ZIP Code Phon e Number [address] (ABNORMAL) Magnesium (12/23/2021 10:10 AM EDT) athologist Signature Magnesium 0.61 (L) 0.69 - 1.07 [facility] mmol/L [facility]ORY Specimen Anatomical Collection Method Collection Time Receive d Time (Source) Location / / Volume Laterality Blood 12/23/2021 10:10 12/23/2021 AM EDT 10:22 AM EDT Resulting Agency Comment Spec In Lab Parviz Modi MD CHEMISTRY ORDERABLES Performing Organization Address City/[facility]/ZIP [facility] [place] [address] documented in this encounter Visit Diagnoses Diagnosis Hypomagnesemia Disorders of magnesium metabolism STACIE (acute kidney injury) Acute kidney failure, unspecified H/O Clostridium difficile infection Personal history of other infectious and parasitic disease 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 status Acute leukemia in remission Acute leukemia of unspecified cell type in remission Anemia in neoplastic disease Weakness acquired in ICU S/P allogeneic bone marrow transplant Bone marrow replaced by transplant Dehydration documented in this encounter Administered Medications Inactive Administered Medications - up to 3 most recent administrations Medication Order MAR Action Action Date Dose Rate Site sodium chloride 0.9 % (flush) (BD Given 12/23/2021 2:30 PM EDT 1 0 mLs PosiFlush Normal Saline 0.9) flush 10-20 mL 10-20 mL, Intravenous, EVERY 1 MIN PRN, Starting on 12/23/21 at 0940, Until Tu12/24/21 at 0433, Signing Agent, Routine Given 12/23/2021 10:13 AM EDT 20 mLs documented in this encounter Additional Health Concerns Infection Onset Date Last Indicated Resolved Time History of C. difficileComment: C. diffiicile 08/20/2021 testing positive 05/25/21. documented as of this encounter Care Teams Printmaker Relationship Specialty Start Date End Date Beatriz Maurice PA PCP - General Family Medicine 05/06/21 [address] [place] [address] documented as of this encounter
--- OUTSIDE RECORDS SUMMARY | 2022-02-14 11:08 | XMS_ITS | Encounter Summary ---
:1960 Author Organization [facility] Address [address] [facility] [place] [address] Care Team Providers Name Role Phone Beatriz Maurice Primary Care Provider Encounter Details Date Type Department Care Team Description 01/04/2022 Ancillary Procedure Radiology Library at Aruna Maurice [facility] LEISA Butts [facility] [address] [place] [address] [place] [address] [phone] Social History Tobacco Use Types Packs/Day Years [...] Hematology and Oncology Parviz Modi MD [facility] DR HEMATOLOGY/[place] [address] Miroslava Pelayo APRN [facility] DR HEMATOLOGY/[place] [address] 02/24/2022 Office Visit Wound Care 02/24/2022 Appointment Hematology and Oncology 02/26/2022 Office Visit Neurology Leni Bustamante MD [facility] ER DR NEUROLOGY DEPT. [place], [place] [address] (Wo rk) documented as of this encounter Procedures Procedure Name Priority Date/Time Associated Diagnosis Comme nts FILM LIBRARY Routine 01/04/2022 12:00 AM Results for this STORAGE ONLY DX EDT procedure ar e in CHEST the results section. documented in this encounter Results Film Library- Storage Only DX Chest (01/04/2022 12:00 AM EDT) Specimen (Source) Anatomical Location Collection Method / Collectio n Time Received Time / Laterality Volume Narrative RAD - 01/05/2022 8:22 PM EDT This exam is auto-finalizing. It's purpo se is for storage only. Beatriz DE LA FUENTE IMElaine FILM LIBRARY ORDERABLES Performing Organization Address City/State/ZIP Code Phon e Number [place], [place] documented in this encounter Visit Diagnoses Not on filedocumented in this encounter Additional Health Concerns Infection Onset Date Last Indicated Resolved Time History of C. difficileComment: C. diffiicile 08/20/2021 testing positive 05/25/21. documented as of this encounter Care Teams Optician Apprentice Dispensing Relationship Specialty Start Date End Date Beatriz Maurice PA PCP - General Family Medicine 05/06/21 [address] [place] [address] documented as of this encounter
--- OUTSIDE RECORDS SUMMARY | 2022-02-14 11:08 | XMS_ITS | Encounter Summary ---
:1960 Author Organization [facility] Address [facility] [place] [address] Care Team Providers Name Role Phone Beatriz Maurice Primary Care Provider Encounter Details Date Type Department Care Team Description 12/24/2021 Orders Only Hematology and Oncology Parviz Modi MD at [facility] Catie narvaez HEMATOLOGY/[place] [address] [place] [address] [phone] (Wo rk) Social History Tobacco Use Types [...] Visit Hematology and Oncology Parviz Modi MD [facility] DR HEMATOLOGY/[place] [address] Miroslava Pelayo APRN [facility] HEMATOLOGY/[place] [address] 02/24/2022 Office Visit Wound Care 02/24/2022 Appointment Hematology and Oncology 02/26/2022 Office Visit Neurology Leni Bustamante MD [facility] NEUROLOGY DEPT. [place], [place] [address] (Wo rk) documented as of this encounter Visit Diagnoses Not on filedocumented in this encounter Additional Health Concerns Infection Onset Date Last Indicated Resolved Time History of C. difficileComment: C. diffiicile 08/20/2021 testing positive 05/25/21. documented as of this encounter Care Teams Installer Helper Relationship Specialty Start Date End Date Beatriz Maurice PA PCP - General Family Medicine 05/06/21 [address] [place] [address] documented as of this encounter
--- OUTSIDE RECORDS SUMMARY | 2022-02-14 11:08 | XMS_ITS | Encounter Summary ---
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 [address] Referral ID Status Reason Start Date Expiration Date Visits V isits Requested Authorized [id number] Authorized 11/22/2021 11/22/2022 99 99 Encounter Details Date Type Department Care Team Description 12/26/2021 Infusion Hematology Oncology at [facility]; [facility] S/P allogeneic bone marrow t ransplant; [address] [place] [address] Acute myeloid leukemia in [place]; [place], [place] [address] STACIE (acute kidney injury); [phone] Dehydration Social History Tobacco Use Types Packs/Day [...] Sign Reading Time Taken Comments Blood Pressure 104/72 12/26/2021 1:25 PM EDT Pulse 76 12/26/2021 1:25 PM EDT Temperature 36.3 ??C (97.3 ??F) 12/26/2021 1:25 PM EDT Respiratory Rate 18 12/26/2021 1:25 PM EDT Oxygen Saturation 100% 12/26/2021 1:25 PM EDT Inhaled Oxygen Concentration - - Weight 88.6 kg (195 lb 6.4 oz) 12/26/2021 1:25 PM EDT Height 176 cm (5' 9.29) 12/26/2021 1:25 PM EDT Body Mass Index 28.61 12/26/2021 1:25 PM EDT documented in this encounter Progress Notes Yoana Schmidt RN - 12/26/2021 2:00 PM EDT INFUSION THERAPY ADMINISTRATION NOTES DIAGNOSIS: AML S/P BMT REASON FOR VISIT: Hydration SUBJECTIVE Herber offers no complaints. He is drinking more fluids but still not eating much. OBJECTIVE IV ACCESS: Mediport accessed at [facility] for labs. Flushes with a brisk blood return. Port deaccessed after hydration. Flushed with 20ml normal saline and 500unites heparin. REACTIONS (DESCRIPTION, TIME, INTERVENTION AND EFFECTIVENESS) none ASSESSMENT Herber was awake, alert and tolerated treatment well. PLAN Return to clinic per routine. documented in this encounter Plan of Treatment Upcoming Encounters Date Type Specialty Care Team Description 02/18/2022 Infusion Hematology and Oncology 02/21/2022 Infusion Hematology and Oncology 02/24/2022 Appointment Hematology and Oncology 02/24/2022 Office Visit Hematology and Oncology Parviz Modi MD [facility] DR HEMATOLOGY/[place] [address] Miroslava Pelayo APRN [facility] DR HEMATOLOGY/[place] [address] 02/24/2022 Office Visit Wound Care 02/24/2022 Appointment Hematology and Oncology 02/26/2022 Office Visit Neurology Leni Bustamante MD [facility] DR NEUROLOGY DEPT. [place], [place] [address] (Wo rk) documented as of [...] Rate Site sodium chloride 0.9% New Bag 12/26/2021 1:35 PM EDT 500 mL/hr 500 mL/hr infusion 500 mL/hr, Intravenous, CONTINUOUS, Starting on Kassy 12/26/21 at 1400, Until Kassy 12/26/21 at 1742, 500 mg over 2 hours documented in this encounter Additional Health Concerns Infection Onset Date Last Indicated Resolved Time History of C. difficileComment: C. diffiicile 08/20/2021 testing positive 05/25/21. documented as of this encounter Care Teams Coating Machine Operator Relationship Specialty Start Date End Date Beatriz Maurice PA PCP - General Family Medicine 05/06/21 [address] [place] [address] documented as of this encounter
--- OUTSIDE RECORDS SUMMARY | 2022-02-14 11:08 | XMS_ITS | Encounter Summary ---
:1960 Author Organization [facility] [place] [address] Care Team Providers Name Role Phone Beatriz Maurice Primary Care Provider Encounter Details Date Type Department Care Team Description 12/30/2021 Telephone Hematology and Oncology at Kallie Leger [facility] [place] [address] HEMATOLOGY/ONCOLOGY [phone] [place], [place] [address] (Wo rk) Social History Tobacco [...] this encounter Miscellaneous Notes Telephone Encounter - Kallie Leger MD - 12/30/2021 12:06 PM EDT Reason for call: Transfer Center Hospital: [facility] HPI: Mr. 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 [facility], he was found dehydrated in the setting of poor oral intake, he was not able to take even his meds. He is confused and denies any other symptom, except for a mouth sore in his tongue. Physical exam: Mouth sore in the side of his tongue. Still confused. He is refusing to take oral meds. Labs: WBC: 5.6K, 87%. Hb: 9.0/27.3 Plt 61K Chemistry: Na 141, K 4.6, Cl 110, anion gap 10, Cr 3.1, GFR 20, glucose 125 TB 0.8. LFTs within normal UA (specific gravity negative), chest X-ray negative. Blood cultures: no growth thus far. COVID/influenza. LA was 3.2 now normal. Imaging: CT head/chest/abb/pelvis negative thus far. 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 His renal function has improved so far after IV hydration, but remains still with elevatedCr and confusion. Our plan is: 1. Patient is being accepted to by Dr. Karolyn Freitas. Transfer to be happened on Thursday12/31/2021 dueto availability of beds. 2. Continue fluconazole at 200 mg daily 3. Continue acyclovir CrCl <10 -> 200 mg BID 4. Continue tacrolimus 0.5 mg BID 5. Check Mg and supplement as needed. 6. Continue IV hydration and monitor electrolytes/renal failure. 7. If acute declining in mental status, please repeat the CT head. 8. Continue prednisone 30 mg daily (I spoke directly with Dr. Modi who agrees to continue this medin the setting of ?GHVD). 9. Once he arrives to out facility, we will likely plan to scope him to assess for herpetic infection in his esophagus. Kallie Rodrigez M.D. Hematology and Oncology Fellow [facility] Pager # [phone] 12/30/21, 12:12 PM This is not an official consult, as my recommendations are limited by my inability to interview and examine the patient as well as personally review the medical record, imaging, and laboratory findings. UPDATE 12/31/2020 4:16 p.m.: I spoke with Annika, his ASSISTANCE COORDINATOR at [facility]. Herber is doing better. He is alert, and orientedx3. He is now having p.o. intake wihout difficulty. His diet was advanced to soft type. He is tolerating well and having a good intake. He denies mouth sores, fever chills, nausea, vomiting, diarrhea, chest pain, SOB. His chemistry showed stable Cr at 3.1. His IV fluids were decreased at 75 cc NS today. Herber has remarkable improved over the last 24 hours after IV hydration. His mental status is back tonormal and his renal function remains stable. There is not concerns for infection. He is tolerating p.o. properly. His current treatment is: 1. Fluconazole at 200 mg daily 2. Acyclovir CrCl <10 -> 200 mg BID 3. Tacrolimus 0.5 mg BID 4. Continue IV hydration with 75cc NS until tomorrow morning. 5. Check chemistry, renal function, Mg tomorrow in the morning. 6. On dexamethasone equivalent dose of prednisone 30 mg daily, this should continue upon discharge. 7. If his renal function continues stable by tomorrow morning and he has a proper oral intake, he will be discharge to acute rehab (likely [facility] in [place], [place] or [facility] in [place], [place]). I willcontinue to follow with Annika tomorrow morning 01/01/2022 to decide whether he needs to be transfer toour facility or discharge to rehab. Case discussed with Dr. Modi and Dr. Freitas. Kallie Rodrigez M.D. Fellow, Hematology and Medical Oncology [facility] Pager #[phone] UPDATE 01/01/2022 1:10 p.m.: Mr. Iverson remains clinically stable. His today is at Cr 2.3, which is a significant improvement fromyesterday. His diet was advanced and he is tolerating well his oral intake. There is not medical reason to proceed with transfer to our institution. Patient will be discharge to rehab. We will make sure we have our follow-ups in place at the outpatient setting. documented in this encounter Plan of Treatment Upcoming Encounters Date Type Specialty Care Team Description 02/18/2022 Infusion Hematology and Oncology 02/21/2022 Infusion Hematology and Oncology 02/24/2022 Appointment Hematology and Oncology 02/24/2022 Office Visit Hematology and Oncology Parviz Modi MD [facility] DR HEMATOLOGY/[place] [address] Miroslava Pelayo APRN [facility] DR HEMATOLOGY/[place] [address] 02/24/2022 Office Visit Wound Care 02/24/2022 Appointment Hematology and Oncology 02/26/2022 Office Visit Neurology Leni Bustamante MD [facility] NEUROLOGY DEPT. [place], [place] [address] (Wo rk) documented as of this encounter Visit Diagnoses Not on filedocumented in this encounter Additional Health Concerns Infection Onset Date Last Indicated Resolved Time History of C. difficileComment: C. diffiicile 08/20/2021 testing positive 05/25/21. documented as of this encounter Care Teams Branch Library Clerk Relationship Specialty Start Date End Date Beatriz Maurice PA PCP - General Family Medicine 05/06/21 [address] [place] [address] documented as of this encounter
--- OUTSIDE RECORDS SUMMARY | 2022-02-14 11:08 | XMS_ITS | Encounter Summary ---
:1960 Author Organization [facility] [address] Care Team Providers Name Role Phone Beatriz Maurice Primary Care Provider Encounter Details Date Type Department Care Team Description 12/20/2021 Unscheduled Hematology and Cortney Givens, Severe Encounter Oncology at [facility] protein-calorie [facility] malnutrit [facility] [address], [place] [id number] Social History Tobacco Use Types Packs/Day Years [...] documented as of this encounter Progress Notes Cortney Givens, RD - 12/20/2021 12:08 PM EDT Nutrition Note Met with Herber briefly in infusion. He is still complaining of no appetite at all, no desire to eat. He has had minimal intake in the past two days. We discussed treating food as medicine and eating though he does not want to. He seems to do better with liquids, and getting calories in with a high calorie shake will sustain him until his appetite (hopefully) returns. We discussed having 4- 500 kcal shakes per day. (ingredients: whole milk, CIB, ice cream, peanut butter, etc) He is not interested in Ensure/Boost or any ready made ONS. Reiterated importance of nutrition. Pt does not want to be admitted ever again- discussed that improving nutrition will help overall. Pt understands, but still struggles with intake. Will f/u in [address], CNSC, LD documented in this encounter Plan of Treatment Upcoming Encounters Date Type Specialty Care Team Description 02/18/2022 Infusion Hematology and Oncology 02/21/2022 Infusion Hematology and Oncology 02/24/2022 Appointment Hematology and Oncology 02/24/2022 Office Visit Hematology and Oncology Parviz Modi MD [facility] DR HEMATOLOGY/[place] [address] Miroslava Pelayo APRN [facility] DR HEMATOLOGY/[place] [address] 02/24/2022 Office Visit Wound Care 02/24/2022 Appointment Hematology and Oncology 02/26/2022 Office Visit Neurology Leni Bustamante MD [facility] NEUROLOGY DEPT. [place], [place] [address] (Wo rk) documented as of this encounter Visit Diagnoses Diagnosis Severe protein-calorie malnutrition Other severe protein-calorie malnutritio n documented in this encounter Additional Health Concerns Infection Onset Date Last Indicated Resolved Time History of C. difficileComment: C. diffiicile 08/20/2021 testing positive 05/25/21. documented as of this encounter Care Teams Pathology Specialist Relationship Specialty Start Date End Date Beatriz Maurice PA PCP - General Family Medicine 05/06/21 [address] [place] [address] documented as of this encounter
--- OUTSIDE RECORDS SUMMARY | 2022-02-14 11:08 | XMS_ITS | Encounter Summary ---
:1960 Author Organization [facility] Address [facility] [place] [address] Care Team Providers Name Role Phone Beatriz Maurice Primary Care Provider Reason for Visit Auth/Cert Specialty Diagnoses / Procedures Referred By Contact Refer red To Contact Diagnoses AML Procedures PRO DIAGNOSTIC BONE MARROW BIOPSIES & ASPIRATIONS ([facility]) BONE MARROW BIOPSY AND ASPIRATION; DIAGNOSTIC Referral ID Status Reason Start Date Expiration Date Visits Requ ested Visits Authorized [id number] 1 1 Encounter Details Date Type Department Care Team Description 12/23/2021 Surgery Outpatient Surgery Parviz Modi, ([facility]) [facility] Latrice Perez MD MARROW BIOPSY AND [facility] ASPIRATION; DIAGNOSTIC [facility] HEMATOLOGY/[place] [address] [place] [address] [phone] (Wo rk) Social History Tobacco Use Types [...] Sign Reading Time Taken Comments Blood Pressure 104/79 12/23/2021 4:00 PM EDT Pulse 88 12/23/2021 4:00 PM EDT Temperature 36.5 ??C (97.7 ??F) 12/23/2021 3:13 PM EDT Respiratory Rate 11 12/23/2021 3:45 PM EDT Oxygen Saturation 100% 12/23/2021 4:00 PM EDT Inhaled Oxygen Concentration - - Weight 88.9 kg (196 lb) 12/23/2021 3:05 PM EDT Height 180.3 cm (5' 11) 12/23/2021 3:05 PM EDT Body Mass Index 27.34 12/23/2021 3:05 PM EDT documented in this encounter Discharge Instructions Discharge InstructionsEmerita Dover RN - 12/23/2021 2:54 PM EDT OUTPATIENT SURGERY POST-OPERATIVE INSTRUCTIONS BONE MARROW BIOPSY SITE You have had a bone marrow aspiration and or/biopsy, which is like having an operation with a tiny, deep incision. Do Not do any strenuous work today, like housework, yard work, sports of any kind or lifting more than 5 pounds as it may cause your bone marrow site to bleed. To avoid infection, leave the clear plastic dressing on the site for three days. You may shower, bathe, or swim as you wish, provided the clear dressing remains intact, and all sides of the dressing are firmly adhered to the skin. In the unlikely event that a portion or the entire dressing should comeoff, you may replace it with a conventional cloth band aid. However, you will no longer be able to get the site wet until three days have passed, as a conventional band aid is not waterproof and the site is no longer a sterile area. It is not unusual for the site to leak a scant amount of blood, so do not be alarmed to see a small collection, or ???puddle?? of blood under the dressing. Wound healing will still occur. If you are uncertain if there is an increase in any leaking from your bone marrow site, roll up a towel, lie down on a firm surface, place the towel directly over the puncture site to apply pressure, and rest there for one half hour. Direct, FIRM thumb pressure applied to the site for 10 minutes workswell as an alternative method. Leave the dressing on. Most people do not experience much discomfort after this procedure, but if you do, you should ask your physician what to take. AVOID ASPIRIN PRODUCTS as these interfere with clotting. After three days, remove your dressing and leave it off, so the air can get to the site to finish the healing process. NOTIFY YOUR DOCTOR FOR: Redness Heat Fever Swelling Drainage Increased pain Foul odor (which may not be apparent through the dressing) If you are having problems or have any additional concerns or questions: Between 8am and 5pm - Call the Hematology Clinic at . After 5pm or on a weekend: Call the [facility] manufacturing machine operator at and ask for the physician curriculum consultant covering for your doctor. Instructions following sedation You may have received medication before and/or during your procedure, which affects judgement and reaction time. Use caution with stairs. Do not drive, operate machinery, drink alcoholic beverages, or make any legal decisions for 24 hours. You may eat a regular diet as tolerated. Do not smoke if you are alone. IV site -- slight redness, or tenderness is normal, you can use a warm compress. If tenderness and redness increases or foul drainage occurs, please [place] [address] [email or web address] [facility] documented in this encounter Medications at Time of Discharge Medication Sig Dispensed Refills Start Date End Date Colostomy Belt Dispense 1 Sensura Flako 1 each 2 (Ostomy Belt Medium) Belt #9725 per month. [facility] metoprolol tartrate Take 1 tablet by mouth [...] 20 each 11 2 (10/box) of Sensura [place] Soft Convex One-piece Pouch #02980 per month. Ostomy Supplies Misc Dispense 2 boxes 40 each 2 (20/box) of Brava Elastic Barrier strips #[id number] per month. Ostomy Supplies Misc Dispense 1 box 50 each 11 08/20/2021 (50/box) of a generic no-sting skin barrier wipe per month. clotrimazole Take 1 tablet by mouth 70 tablet 1 12/23/2021 01/14/2022 (Mycelex) 10 mg 5 times daily for 14 Will days. dronabinoL (Marinol) Take 1 capsule by 28 [...] documented as of this encounter Progress Notes Emerita Dover RN - 12/23/2021 4:30 PM EDT Discharge instructions and medications reviewed with patient and Chai. All questions answered and written copy sent home with patient. Patient ambulated with walker to car for discharge accompanied by[facility] staff member. Emerita Dover RN - 12/23/2021 3:31 PM EDT Date/Procedure: Meds Given Comments 12/23/21 bmbx 2 mg versed; 75 mcg fentanyl Patient tolerated the procedure well. No c/o pain or discomfort. documented in this encounter H&P Notes Hayley Palmer APRN - 12/23/2021 4:30 PM EDT Pre-Sedation Assessment: Planned procedure: bone marrow biopsy and aspiration Indications: disease assessment Diagnosis: AML Assessment: Cardiovascular: Rhythm: Regular Rate: Normal Pulmonary: Breath sounds clear to auscultation ASA: 4: Patient with severe systemic disease that is a constant threat to life Mallampati: I: soft palate, fauces, tonsillar pillars and uvula can be seen H&P reviewed: Yes Relevant diagnostic studies: CBC reviewed Confirm NPO status: Yes, Date and Time of last intake: last night History of anesthetic complications: No Current medications reviewed: Yes Allergies reviewed: Yes Alcohol use: does not drink, Date and Time of last drink: N/A Drug use: denies drug use Sedation Plan: moderate (conscious sedation) The sedation plan, its benefits and risks, and alternatives were discussed with the patient. The planned procedure, its benefits and risks, and alternatives were discussed with the patient. Thepatient consented to the procedure. Discharge to: [facility] Hayley Palmer APRN documented in this encounter Procedure Notes Hayley Palmer APRN - 12/23/2021 4:30 PM EDTProcedure(s): PRO DIAGNOSTIC BONE MARROW BIOPSIES Pre-Procedure Diagnose(s): Acute myeloid leukemia in remission BONE MARROW BIOPSY AND ASPIRATION PROCEDURE NOTE Bone marrow biopsy with sedation Consent: Signed and on chart DIAGNOSIS: AML IV ACCESS: Port Pre-Procedure: (x) Pt and family educated about bone marrow biopsy and aspiration. (x) Consent signed (scanned into pt's chart) (x) CBC drawn within 3 days. (x) Medications/Allergies/Problem List reviewed Prior to start of procedure the following is verified in a Time Out: (x) Patient identity (x) Planned procedure (x) Safety concerns PAIN INTERVENTION: Conscious sedation w/ Fentanyl and Versed. See conscious sedation RN notes Sterile Condition: Chlorohexidine was used to cleanse the biopsy site Sterile drapes were used to create a sterile field. Local Anesthesia: 1 % Lidocaine: total dose = 20 cc PROCEDURE: A bone marrow biopsy and aspiration was performed on the left posterior iliac crest. Tegaderm dressing placed and pressure applied to site for 30 minutes following the procedure. Estimated Blood Loss: minimal Complications: none Testing: Per bone marrow requisition Follow-up: Written/Verbal instructions for site care reviewed and given to the patient. Encouraged to call with any concerns. Follow-up with Physician as instructed. Hayley Palmer APRN documented in this encounter Plan of Treatment Upcoming Encounters Date Type Specialty Care Team Description 02/18/2022 Infusion Hematology and Oncology 02/21/2022 Infusion Hematology and Oncology 02/24/2022 Appointment Hematology and Oncology 02/24/2022 Office Visit Hematology and Oncology Parviz Modi MD [facility] DR HEMATOLOGY/ONCOLOGY [place] [address] Miroslava Pelayo APRN [facility] [address] HEMATOLOGY/ONCOLOGY [place] [address] 02/24/2022 Office Visit Wound Care 02/24/2022 Appointment Hematology and Oncology 02/26/2022 Office Visit Neurology Leni Bustamante MD [facility] DR NEUROLOGY DEPT. [place], [place] [address] (Wo rk) documented as of this encounter Procedures Procedure Name Priority Date/Time Associated Comments Diagnosis IMMUNOPHENOTYPING FLOW Routine 12/23/2021 3:40 Re sults for this CYTOMETRY PM EDT procedure are i n the results section. BONE MARROW FINAL REPORT Routine 12/23/2021 3:40 Results for this PM EDT procedure are i n the results section. [facility] Routine 12/23/2021 3:40 Resul ts for this PM EDT procedure are i n the results section. IRON STAIN, BONE MARROW Routine 12/23/2021 3:40 R esults for this PM EDT procedure are i n the results section. BONE MARROW PANEL Routine 12/23/2021 3:40 ([facility]/CGP/APD) PM EDT ([facility]) BONE MARROW Yes 12/23/2021 3:21 AML BIOPSY AND ASPIRATION; PM EDT DIAGNOSTIC ([facility]) BONE MARROW Routine 12/23/2021 2:54 BIOPSY AND ASPIRATION; PM EDT DIAGNOSTIC documented in this encounter Results [facility] (12/23/2021 3:40 PM EDT) [facility] Method Time Signature [facility] LATRICE Test ?Result ? Flag ??Unit ??RefValue [facility] NPM1 Mutation Analysis, V HOSP ITAL ??Specimen Type ? Bone gunjan david LABORATORY ??Interpretation ?SEE COM MENTS ?Bone marrow, [...] ?incidence of relapse (Idania et al, 2006, [id number]; Millie lester ?et al, 2005, [id number]; Lary et al, 2005; [id number]). ?In NPM1-mutated AML patients, persistence of NPM1-muta charlie ?transcript, particularly at higher levels (>100-200/10 ,000 ?ABL1 copies) after at least two cycles of cytotoxic ?chemotherapy is associated with increased risk of rela pse ?and lower rate of survival (Candis et al, 2011, [id number]; ?Octavio et al, 2013, [id number]; Saida et al, 2016, ?[id number]). Trends in the level of NPM1-mutated transcr ipt ?should be followed carefully. An increase of NPM1-muta charlie ?transcript level greater than or equal to 1 log10 betw een ?two positive samples is consistent with molecular ?relapse/molecular progression (Marquis et al, 2018, ?[id number]). The reproducibility of this assay is such [...] The quantitative assay is a RNA-based reverse ?diamond mounter real-time polymerase chain reaction (RT- PCR) ?which detects and quantifies the most common mutant CHECKER DUMP GROUNDS M1 ?transcripts (A, B, D forms) which [...] its performance characteri stics ?determined by [facility] in a manner consistent with CLIA ?requirements. This test has not been cleared or approv ed by ?the U.S. Food and Drug Administration. ??Signing Pathologist ?Yolette Velazquez M.D. ?Test Performed by: ?[facility] ?[address] [id number] ?Sleeve Setter Safety Stitch: Randal Aparicio M.D. Ph.D.; CLIA# [id number] Specimen Anatomical Collection Method Collection Time Receive d Time (Source) Location / / Volume Laterality Other Other / Unknown 12/23/2021 3:40 PM 2021 3:47 EDT PM EDT Narrative This result has an attachment that is no t available. Resulting Agency Comment Spec In Lab Colby Coyne MD CHEMISTRY ORDERABLES Performing Organization Address City/State/[place] [address] Bone Marrow Final Report (12/23/2021 3:40 PM EDT) Component Value Ref Test Analysis Performed At [facility] gist Range Method Time Signature Bone Marrow [id number] ? Location: [facility] Final Report [place] The signing pathologist has (i) examined the relevant preparation(s) for the [facility] specimen(s) and (ii) rendered or confirmed the diagnosis(es) . [facility] LABORATORY . ? Bone Marrow Final DIAGNOSIS BONE MARROW (BLOOD FILM, ASPIRATE SMEAR, TOUCH PREP, CORE & CLOT SECTIONS): ?? 1. ??Normocellular marro w (40%) showing complete multilineage ?? hematopoiesis ?? 2. ??Iron stain shows presence of storage iron ?? 3. ??Peripheral smear wi th moderate macrocytic anemia and ?? thrombocytopenia Electronically signed by: ?Colby Coyne MD Verified: ??12/25/2021 14:47 ??Hematopathologist Performed at: ??-[facility] Dept. of Pathology, [place], [place] DISCUSSION No abnormal increase in samm [...] ing sideroblasts. DIFFERENTIAL Band/Seg 22.0%; Lymph 13.5%; [place] 2.0%; Eos 3.5%; Baso 0%; Metamyelocyte 14.5%; [...] for morphologic co rrelation. Electronically signed by: ?Colby Coyne MD Verified: ??12/24/2021 13:59 ??Hematopathologist Performed at: ??-[facility] Dept. of Pathology, [place], [place] DISCUSSION The BE37-flb low-SSC flow sc atterplot region represents ~1% [...] the Clinical Flow Cytometry Lab oratory at [facility]. It has not been cleared or [...] (CLIA) as qualified to perform high complexity clinic al laboratory testing. SPECIMEN PROCESSING [id number] Cells for immunophenotypic a nalysis were derived [...] / Volume Laterality 12/23/2021 3:40 PM EDT Parviz Modi MD PATHOLOGY/CYTOLOGY ORDERABLE S Performing Organization Address City/[facility]/ZIP Code Phon e Number [address] Immunophenotyping Flow Cytometry (12/23/2021 3:40 PM EDT) Component Value Ref Test Analysis Performed At [facility] Range Method Time Signature Immunophenotyping See [facility] Flow [facility] LABORATORY Comment: When completed by the Pathologist, the F low Cytometry Report ([id number]) will display under the Pathology Result s section within eDH. Specimen Anatomical Collection Method Collection Time Receive d Time (Source) Location / / Volume Laterality Bone Marrow 12/23/2021 3:40 PM 2 4:09 EDT PM EDT Resulting Agency Comment Spec In Lab Parviz Modi MD HEMATOLOGY ORDERABLES Performing Organization Address City/[facility]/[place] [address] Iron Stain, Bone Marrow (12/23/2021 3:40 PM EDT) [facility] gist Method Time Signature Iron Stain BM See Comment [facility] LABORATORY Comment: See Bone Marrow Report [id number] under Hematopathology Reports. Specimen Anatomical Collection Method Collection Time Receive d Time (Source) Location / / Volume Laterality Bone Marrow 12/23/2021 3:40 PM 2 4:09 EDT PM EDT Resulting Agency Comment Spec In Lab Parviz Modi MD HEMATOLOGY ORDERABLES Performing Organization Address City/[facility]/ZIP [facility] Phon e Number [address] documented in this encounter Visit Diagnoses Not on filedocumented in this encounter Administered Medications Inactive Administered Medications - up to 3 most recent administrations Medication Order MAR Action Action Date Dose Rate Site fentaNYL (pf) (50 mcg/mL) Given 12/23/2021 3:38 PM EDT 25 mcg multi-dose injection 25-50 mcg 25-50 mcg, Intravenous, EVERY 5 MIN PRN, Starting on Thu12/23/21 at 1453, Until Thu12/23/21 at 1631, Pain, Hold for respiratory rate less than 8 breaths per minute. (maximum dose 200 mcg), Intra-Operative (Intra-Procedure), Routine Given 12/23/2021 3:28 PM EDT 50 mcg heparin (pf) (porcine) (100 units/mL) fl ush 5 mL syringe 500 Units 500 Units (5 mL), Intravenous, DAILY PRN , 1 dose, Starting on Thu12/23/21 at 1605, Until Thu12/23/21 at 1832, Line Care, Ter jim Flush for de-accessing of Implantable Port, Routine midazolam (pf) (Versed) (1 mg/mL) multi-dose Given 12/23/2021 3: 28 PM EDT 2 mg injection 0.5-2 mg 0.5-2 mg, Intravenous, EVERY 5 MIN PRN, Starting on Thu12/23/21 at 1453, Until Thu12/23/21 at 1631, Sleep, Anxiety, Hold for delirium/agitation. (Maximum dose 5 mg)., Intra-Operative (Intra-Procedure), Routine documented in this encounter Active and Recently Administered Medications Times are shown in EDT. PRN Medication Order 12/21/2021 12/22/2021 12/23/2021 fentaNYL (pf) (50 mcg/mL) multi-dose injection 25-50 mcg (CANCEL ED) 1528 (Given - Provider: Emerita Dover RN)1538 (Given - Provider: Emerita Dover RN) 25-50 mcg, Intravenous, EVERY 5 MIN PRN, Starting on Thu12/23/21 at 1453, Until Thu12/23/21 at 1631, Pain, Hold for respiratory rate less than 8 breaths per minute. (maximum dose 200 mcg), Intra-Operative (Intra-Procedure), Routine heparin (pf) (porcine) (100 units/mL) flush 5 mL syringe 500 Uni ts 500 Units (5 mL), Intravenous, DAILY PRN , 1 dose, Starting on Thu12/23/21 at 1605, Until Thu12/23/21 at 1832, Line Care, Terminal Flush for de-accessing of Implantable Port, Routine midazolam (pf) (Versed) (1 mg/mL) multi-dose injection 0.5-2 mg (CANCELED) 1528 (Given - Provider: Emerita Dover RN) 0.5-2 mg, Intravenous, EVERY 5 MIN PRN, Starting on 12/23/21 at 1453, Until Thu12/23/21 at 1631, Sleep, Anxiety, Hold for delirium/agitation. (Maximum dose 5 mg)., Intra-Operative (Intra-Procedure), Routine documented in this encounter Additional Health Concerns Infection Onset Date Last Indicated Resolved Time History of C. difficileComment: C. diffiicile 08/20/2021 testing positive 05/25/21. documented as of this encounter Care Teams Oven Roaster Relationship Specialty Start Date End Date Beatriz Maurice PA PCP - General Family Medicine 05/06/21 [address] [place] [address] documented as of this encounter
--- OUTSIDE RECORDS SUMMARY | 2022-02-14 11:08 | XMS_ITS | Encounter Summary ---
:1960 Author Organization [facility] Address [facility] [place] [address] Care Team Providers Name Role Phone Beatriz Maurice Primary Care Provider Encounter Details Date Type Department Care Team Description 12/30/2021 Telephone Hematology and Oncology at Faby Quiros MD [facility] Catie narvaez HEMATOLOGY/[place] [address] [place] [address] [phone] (Wo rk) Social History Tobacco Use Types [...] this encounter Miscellaneous Notes Telephone Encounter - Kostas Qiuros MD - 12/30/2021 10:14 AM EDT Received a call from patient's girlfriend stating patient was delirious and unresponsive. Episode happened yesterday night while patient was at rest in bed. She called his friend over but it appeared patient had just stared blankly. No seizure like activity noted. As a result, patient's girl friend called EMS. Patient lives about 1-1.5 hours away.Agreed with taking patient to nearest ED for evaluation. Unable to obtain more history as EMS had arrived and girlfriend had to speak with them. Unclear where patient was taken and I did not receive follow up call. I attempted to follow up but it does not seem patient was brought to [facility]. Will reach out to triage team to contact patient/girlfriend and obtain more information. documented in this encounter Plan of Treatment Upcoming Encounters Date Type Specialty Care Team Description 02/18/2022 Infusion Hematology and Oncology 02/21/2022 Infusion Hematology and Oncology 02/24/2022 Appointment Hematology and Oncology 02/24/2022 Office Visit Hematology and Oncology Parviz Modi MD [facility] DR HEMATOLOGY/[place] [address] Miroslava Pelayo APRN [facility] DR HEMATOLOGY/[place] [address] 02/24/2022 Office Visit Wound Care 02/24/2022 Appointment Hematology and Oncology 02/26/2022 Office Visit Neurology Leni Bustamante MD [facility] NEUROLOGY DEPT. [place], [place] [address] (Wo rk) documented as of this encounter Visit Diagnoses Not on filedocumented in this encounter Additional Health Concerns Infection Onset Date Last Indicated Resolved Time History of C. difficileComment: C. diffiicile 08/20/2021 testing positive 05/25/21. documented as of this encounter Care Teams Collar Band Creaser Relationship Specialty Start Date End Date Beatriz Maurice PA PCP - General Family Medicine 05/06/21 [address] [place] [address] documented as of this encounter
--- OUTSIDE RECORDS SUMMARY | 2022-02-14 11:08 | XMS_ITS | Encounter Summary ---
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 Herber was admitted to [facility] on Friday 12/29 for confusion, FTT, dehydration. His mental status has cleared. He has received IV hydration. Herber is agreeable to a short stay in a rehab. He is awaiting bed placement. I called [facility] on 01/01, 01/02 and 01/03 and received updates from nursing staff Anson and Veronica. Also charge operator's Maeve and Miryam. All team members very helpful. I have left two messages for the hospitalist team with no return call to date. Herber and his partner Morales have been involved in the conversations and are aware of the plan. Renal function: Creatinine 3.3 on admit to [facility], 2.3 on 01/01, 2.0 on 01/02, and 1.9 today! CrCl 49. Acyclovir dosing changed back to 800mg bid po Herber continues to struggle with the goal of 2L fluid/day. He has been receiving 1L fluid IV daily. Immunosuppression: He was taking tacrolimus 1.0mg po in the morning and 0.5mg in the evening. On Friday 12/29 he did nottake any of his meds and on Saturday 12/30 his tacrolimus level was 7.9. Upon admit his tacrolimus dosewas 0.5/0.[address] Modi keep the dose at 0.5/0.5 until today's lab is resulted. A tacrolimus level was drawn this morning and was sent out to be resulted. Electrolytes: Magnesium level 01/02 1.4mg/dl converted to 0.58mmol/L. He received 2gIV mag. Todays mag level is 0.82mmol/L. No intervention needed. Orders are to infse 2g IV mag to keep greater than 0.6 mmol/L. PJP Prophylaxis: Herber is due to start PJP Prophylaxis. Our preference is Pentamidine 300mg IV x1 monthly. [facility] does not have this medication in stock but can get it early next week. I will touch base with them on Thursday if Herber has not transferred to a rehab facility. A: [facility] team, Herber, and Morales all asked appropriate questions and verbalized understanding of the plan. P: As outlined above This RN will check back in on Herber on Thursday documented in this encounter Plan of Treatment Upcoming Encounters Date Type Specialty Care Team Description 02/18/2022 Infusion Hematology and Oncology 02/21/2022 Infusion Hematology and Oncology 02/24/2022 Appointment Hematology and Oncology 02/24/2022 Office Visit Hematology and Oncology Parviz Modi MD [facility] DR HEMATOLOGY/[place] [address] Miroslava Pelayo APRN [facility] HEMATOLOGY/[place] [address] 02/24/2022 Office Visit Wound Care 02/24/2022 Appointment Hematology and Oncology 02/26/2022 Office Visit Neurology Leni Bustamante MD [facility] NEUROLOGY DEPT. [place], [place] [address] (Wo rk) documented as of this encounter Visit Diagnoses Not on filedocumented in this encounter Additional Health Concerns Infection Onset Date Last Indicated Resolved Time History of C. difficileComment: C. diffiicile 08/20/2021 testing positive 05/25/21. documented as of this encounter Care Teams [employer] Tractor Operator Relationship Specialty Start Date End Date Beatriz Maurice PA PCP - General Family Medicine 05/06/21 [address] [place] [address] documented as of this encounter
--- OUTSIDE RECORDS SUMMARY | 2022-02-14 11:08 | XMS_ITS | Encounter Summary ---
:1960 Author Organization [facility] Address [address] [place] [address] Care Team Providers Name Role Phone Beatriz Maurice Primary Care Provider Reason for Visit Auth/Cert Specialty Diagnoses / Procedures Referred By Contact Refer red To Contact Diagnoses AML Procedures PRO DIAGNOSTIC BONE MARROW BIOPSIES & ASPIRATIONS ([facility] MSURG) BONE MARROW BIOPSY AND ASPIRATION; DIAGNOSTIC Referral ID Status Reason Start Date Expiration Date Visits Requ ested Visits Authorized [id number] 1 1 Encounter Details Date Type Department Care Team Description 12/23/2021 Hospital Encounter Outpatient Surgery Radha Modi , [place]man Latrice Perez MD [facility] HEMATOLOGY/ONCOLOGY Drive DEPT. [place], [place] [id number] [phone] Social History Tobacco Use Types Packs/Day Years [...] Pressure 104/79 12/23/2021 4:00 PM EDT Pulse 90 12/23/2021 4:10 PM EDT Temperature 36.5 ??C (97.7 ??F) 12/23/2021 3:13 PM EDT Respiratory Rate 11 12/23/2021 3:45 PM EDT Oxygen Saturation 99% 12/23/2021 4:10 PM EDT Inhaled Oxygen Concentration - - Weight 88.9 kg (196 lb) 12/23/2021 3:05 PM EDT Height 180.3 cm (5' 11) 12/23/2021 3:05 PM EDT Body Mass Index 27.34 12/23/2021 3:05 PM EDT documented in this encounter Discharge Instructions Discharge Emerita Fletcher RN - 12/23/2021 2:54 PM EDT OUTPATIENT [...] 5pm or on a weekend: Call the [facility] x ray operator at and ask for the physician solutions consultant covering for your doctor. Instructions following [...] drainage occurs, please contact [place] [address] [email or web address] [facility] documented in this encounter Medications at Time of Discharge Medication Sig Dispensed Refills Start Date End Date Colostomy Belt Dispense 1 Sensura Meredith 1 each 11 2 (Ostomy Belt Medium) Belt #3641 per month. Misc metoprolol tartrate Take 1 [...] 30 minutes prior to access. Ostomy Supplies [facility] Dispense 2 boxes ( 20 each 11 022 10/box) of Adapt Barrier rings #[id number] per month. Ostomy Supplies Dispense 1 bottle of 28.3 g 5 08/20/2021 Powder Adapt stoma powder #[id number] every other month. Ostomy Supplies Misc Dispense 2 boxes 20 each 11 2 (10/box) of Sensura Meredith Soft Convex One-piece Pouch #[id number] per month. Ostomy Supplies [facility] Dispense 2 boxes 40 each 11 2 (20/box) of Brava Elastic Barrier strips #[id number] per month. Ostomy Supplies [facility] Dispense 1 box 50 each 11 08/20/2021 [...] Visit Hematology and Oncology Parviz Modi MD [facility] DR HEMATOLOGY/[place] [address] Miroslava Pelayo APRN [facility] DR HEMATOLOGY/[place] [address] 02/24/2022 Office Visit Wound Care 02/24/2022 Appointment Hematology and Oncology 02/26/2022 Office Visit Neurology Leni Bustamante MD [facility] ER NEUROLOGY DEPT. [place], [place] [address] (Wo rk) documented as of this encounter Procedures Procedure Name Priority Date/Time Associated Comments Diagnosis IMMUNOPHENOTYPING FLOW Routine 12/23/2021 3:40 Re sults for this CYTOMETRY PM EDT procedure are i n the results section. BONE MARROW FINAL REPORT Routine 12/23/2021 3:40 Results for this PM EDT procedure are i n the results section. [facility] TEST-PICAYUNE Routine 12/23/2021 3:40 Resul ts for this PM EDT procedure are i n the results section. IRON STAIN, BONE MARROW Routine 12/23/2021 3:40 R esults for this PM EDT procedure are i n the results section. BONE MARROW PANEL Routine 12/23/2021 3:40 (MC/CGP/APD) PM EDT ([facility]) BONE MARROW Yes 12/23/2021 3:21 AML BIOPSY AND ASPIRATION; PM EDT DIAGNOSTIC ([facility]) BONE MARROW Routine 12/23/2021 2:54 BIOPSY AND ASPIRATION; PM EDT DIAGNOSTIC documented in this encounter Results [facility] (12/23/2021 3:40 PM EDT) [facility] Method Time Signature [facility] LATRICE Test ?Result ? Flag ??Unit ??RefValue [facility] NPM1 Mutation Analysis, V HOSP ITAL ??Specimen Type ? Bone [facility] LABORATORY ??Interpretation ?SEE COM MENTS ?Bone [...] ?incidence of relapse (Idania et al, 2006, [id number]; Millie lester ?et al, 2005, [id number]; Lary et al, 2005; [id number]). ?In NPM1-mutated AML patients, persistence of NPM1-muta charlie ?transcript, particularly at higher levels (>100-200/10 ,000 ?ABL1 copies) after at least two cycles of cytotoxic ?chemotherapy is associated with increased risk of rela pse ?and lower rate of survival (Candis et al, 2011, [id number]; ?Octavio et al, 2013, [id number]; Saida et al, 2016, ?[id number]). Trends in the level of NPM1-mutated transcr ipt ?should be followed carefully. An increase of NPM1-muta charlie ?transcript level greater than or equal to 1 log10 betw een ?two positive samples is consistent with molecular ?relapse/molecular progression (Marquis et al, 2018, ?[id number]). The reproducibility of this assay is such [...] The quantitative assay is a RNA-based reverse ?butadiene converter utility operator real-time polymerase chain reaction (RT- PCR) ?which detects and quantifies the most common mutant MAR[facility]ON M1 ?transcripts (A, B, D forms) which [...] its performance characteri stics ?determined by [facility] in a manner consistent with CLIA ?requirements. This test has not been cleared or approv ed by ?the U.S. Food and Drug Administration. ??Signing Pathologist ?Yolette Velazquez M.D. ?Test Performed by: ?[facility] ?[address] [place] [address] ?Member Of Technical Staff: Randal Aparicio M.D. Ph.D.; CLIA# [id number] Specimen Anatomical Collection Method Collection Time Receive d Time (Source) Location / / Volume Laterality Other Other / Unknown 12/23/2021 3:40 PM 2021 3:47 EDT PM EDT Narrative This result has an attachment that is no t available. Resulting Agency Comment Spec In Lab Colby Coyne MD CHEMISTRY ORDERABLES Performing Organization Address City/State/[place] [address] Bone Marrow Final Report (12/23/2021 3:40 PM EDT) Component Value Ref Test Analysis Performed At [facility] gist Range Method Time Signature Bone Marrow [id number] ? Location: [facility] Final Report ALBION The signing pathologist has (i) examined the [...] MD Verified: ??12/25/2021 14:47 ??Hematopathologist Performed at: ??-[facility] Dept. of Pathology, [place], [place] DISCUSSION No abnormal increase in samm [...] ing sideroblasts. DIFFERENTIAL Band/Seg 22.0%; Lymph 13.5%; Lucas 2.0%; Eos 3.5%; Baso 0%; Metamyelocyte 14.5%; [...] MD Verified: ??12/24/2021 13:59 ??Hematopathologist Performed at: ??-[facility] Dept. of Pathology, [place], [place] DISCUSSION The JB22-sxt low-SSC flow sc atterplot region represents ~1% [...] the Clinical Flow Cytometry Lab oratory at [facility]. It has not been cleared [...] complexity clinic al laboratory testing. SPECIMEN PROCESSING [id number] Cells for immunophenotypic a nalysis were derived [...] PATHOLOGY/CYTOLOGY ORDERABLE S Performing Organization Address City/[facility]/ZIP Code Phon e Number [address] Immunophenotyping Flow Cytometry (12/23/2021 3:40 PM EDT) Component Value Ref Test Analysis Performed At [facility] Range Method Time Signature Immunophenotyping See LATRICE Flow Comment [facility] LABORATORY Comment: When completed by the Pathologist, the F low Cytometry Report ([id number]) will display under the Pathology Result s section within eDH. Specimen Anatomical Collection Method Collection Time Receive d Time (Source) Location / / Volume Laterality Bone Marrow 12/23/2021 3:40 PM 2 4:09 EDT PM EDT Resulting Agency Comment Spec In Lab Parviz Modi MD HEMATOLOGY ORDERABLES Performing Organization Address City/[facility]/ZIP Code Phon e Number [address] Iron Stain, Bone Marrow (12/23/2021 3:40 PM EDT) [facility] Method Time Signature Iron Stain BM See Comment [facility] LABORATORY Comment: See Bone Marrow Report [id number] under Hematopathology Reports. Specimen Anatomical Collection Method Collection Time Receive d Time (Source) Location / / Volume Laterality Bone Marrow 12/23/2021 3:40 PM 2 4:09 EDT PM EDT Resulting Agency Comment Spec In Lab Parviz Modi MD HEMATOLOGY ORDERABLES Performing Organization Address City/[facility]/ZIP [place] Phon e Number [address] documented in this encounter Visit Diagnoses Not on filedocumented in this encounter Administered Medications Inactive Administered Medications - up to 3 most recent administrations Medication Order MAR Action Action Date Dose Rate Site heparin (pf) (porcine) (100 units/mL) fl ush 5 mL syringe 500 Units 500 Units (5 mL), Intravenous, DAILY PRN , 1 dose, Starting on Thu12/23/21 at 1605, Until Thu12/23/21 at 1832, Line Care, Ter jim Flush for de-accessing of Implantable Port, Routine documented in this encounter Active and [...] documented as of this encounter Care Teams Barman Relationship Specialty Start Date End Date Beatriz Maurice PA PCP - General Family Medicine 05/06/21 [address] [place] [address] documented as of this encounter
--- OUTSIDE RECORDS SUMMARY | 2022-02-14 11:08 | XMS_ITS | Encounter Summary ---
:1960 Author Organization [place] [address] Care Team Providers Name Role Phone Beatriz Maurice Primary Care Provider Encounter Details Date Type Department Care Team Description 01/04/2022 Telephone Hematology and Oncology at Kallie Leger [facility] [address] HEMATOLOGY/ONCOLOGY [phone] [place], [place] [address] (Wo rk) Social History Tobacco [...] Telephone Encounter - Kallie Leger MD - 01/04/2022 1:01 PM EDT Reason for call: Transfer Center Hospital: JOSE Bañuelos STITCH CLEANER ?? HPI: Mr. 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 He was fluid resucitated and his symptoms improved, he was then discharged to a rehab place. Mr. Iverson has now develop a fever 38.7C reported last night, associated feeling of tiredness. He denies nausea, vomiting, any other episode of fever, chills, shortness of breath, cough, diarrhea,abdominal pain, rashes. ?? VS stable. Physical exam: unchanged. ?? Labs: WBC: 8.4K, ANC 0.7 Hb: 9.2/27 Plt 57K Chemistry: Na 141, K 4.6, Cl 110, anion gap 7.8, Cr 1.8, GFR 20, LFTs normal UA (specific gravity negative), chest X-ray pending Blood cultures: no growth thus far ?? Imaging: CT head/chest/abb/pelvis negative thus far. ?? Treatment/management done thus far: [place], IV hydration ?? 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 Our plan is: 1. Patient will continue treatment in outside facility with IV antibiotic and infectious work-up, ifhe does not respond well to treatment, we will consider to transfer here. 2. Agreed to start cefepime 2 g IV Q8H 3. Continue fluconazole at 200 mg daily 4. Continue acyclovir CrCl <10 ->??800 mg BID 5. Continue tacrolimus 0.5 mg BID 6. Check Mg and supplement as needed 7. Continue IV hydration and monitor electrolytes/renal failure. 8. Continue prednisone 30 mg daily (I spoke directly with Dr. Modi who agrees to continue this medin the setting of ?GHVD). 9. Please obtain a lactic acid and continue IV hydration. 10. Follow-up BCx, UA and chest X-ray. Kallie Rodrigez M.D. Hematology and Oncology Fellow [facility] Pager # [phone] 01/04/22, 1:01 PM This is not an official consult, as my recommendations are limited by my inability to interview and examine the patient as well as personally review the medical record, imaging, and laboratory findings. documented in this encounter Plan of Treatment Upcoming Encounters Date Type Specialty Care Team Description 02/18/2022 Infusion Hematology and Oncology 02/21/2022 Infusion Hematology and Oncology 02/24/2022 Appointment Hematology and Oncology 02/24/2022 Office Visit Hematology and Oncology Parviz Modi MD [facility] DR HEMATOLOGY/[place] [address] Miroslava Pelayo APRN [facility] HEMATOLOGY/[place] [address] 02/24/2022 Office Visit Wound Care 02/24/2022 Appointment Hematology and Oncology 02/26/2022 Office Visit Neurology Leni Bustamante MD [facility] NEUROLOGY DEPT. [place], [place] [address] (Wo rk) documented as of this encounter Visit Diagnoses Not on filedocumented in this encounter Additional Health Concerns Infection Onset Date Last Indicated Resolved Time History of C. difficileComment: C. diffiicile 08/20/2021 testing positive 05/25/21. documented as of this encounter Care Teams Store Group Manager Relationship Specialty Start Date End Date Beatriz Maurice PA PCP - General Family Medicine 05/06/21 [address] [facility] [address] documented as of this encounter
--- OUTSIDE RECORDS SUMMARY | 2022-02-14 11:08 | XMS_ITS | Encounter Summary ---
:1960 Author Organization [facility] Address [facility] [place] [address] Care Team Providers Name Role Phone Beatriz Maurice Primary Care Provider Encounter Details Date Type Department Care Team Description 01/05/2022 Telephone Hematology and Oncology at Faby Quiros MD [facility] Catie narvaez HEMATOLOGY/[place] [address] [place] [address] [phone] (Wo rk) Social History Tobacco Use Types [...] encounter Miscellaneous Notes Telephone Encounter - Kostas Quiros MD - 01/05/2022 8:20 PM EDT Reason for call:??Transfer Center?? Hospital:??[facility] Hospitalist ?? HPI: Mr. 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 He was fluid resucitated and his symptoms improved. Ho wever yesterday, patient developed a fever 38.7C reported last night, associated feeling of tiredness. Work up with imaging showed PNA. He was started on cefepime. Today, patient was noted to be less alert and not oriented. He has no PO intake since yesterday with worsening mental status. Team stated he did not recognize family. He had Temp of 37.9 earlier today. Blood pressures were stable. Most recently, he can respond briefly with yes/no nodding but was very lethargic and unable to sustain attention. Antibiotics were broadened to vancomycin. Vital signs: BP 106/70, HR 100, T 37.9 Physical exam: Rash noted ?? Labs: WBC: 8.4K, ANC 0.7 Hb: 9.2/ Plt 57K Chemistry: Cr 1.8 (3.3 from admission) LFTs normal UA negative Chest X-ray showed PNA Blood cultures: no growth thus far on 12/29, 01/04 Lactic acid 1.2 Ammonia normal TSH unremarkable ?? Imaging:??CT head/chest/abb/pelvis negative thus far. ?? Treatment/management done thus far:?? IV hydration and antibiotics ?? 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 Plan: Given that patient is deteriorating and has not significantly improved on antibiotics, the decision was made to transfer the patient to [facility] for higher level of care. He is currently on cefepime and vancomycin at this time for PNA. His mental status changes is likely to be due to metabolic encephalopathy with underlying infection contributing. We will continue prophylactic antifungal and antiviral medications. We will also continue hydration for his kidney failure which is improving. 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 Continue tacrolimus 0.5mg BID and check tacro level once he arrives at [facility]. He also has thrush noted at the back of his mouth, may consider endoscopy for further evaluation of GVHD given poor PO intake and appetite. Patient to be transferred tomorrow. This case was discussed with Dr. Mcgill. ?? Kostas Quiros MD Hematology and Oncology Fellow [facility] Pager # [phone] documented in this encounter Plan of Treatment Upcoming Encounters Date Type Specialty Care Team Description 02/18/2022 Infusion Hematology and Oncology 02/21/2022 Infusion Hematology and Oncology 02/24/2022 Appointment Hematology and Oncology 02/24/2022 Office Visit Hematology and Oncology Parviz Modi MD [facility] DR HEMATOLOGY/[place] [address] Miroslava Pelayo APRN [facility] DR HEMATOLOGY/[place] [address] 02/24/2022 Office Visit Wound Care 02/24/2022 Appointment Hematology and Oncology 02/26/2022 Office Visit Neurology Leni Bustamante MD [facility] NEUROLOGY DEPT. [place], [place] [address] (Wo rk) documented as of this encounter Visit Diagnoses Not on filedocumented in this encounter Additional Health Concerns Infection Onset Date Last Indicated Resolved Time History of C. difficileComment: C. diffiicile 08/20/2021 testing positive 05/25/21. documented as of this encounter Care Teams [employer]iconductor Dies Loader Relationship Specialty Start Date End Date Beatriz Maurice PA PCP - General Family Medicine 05/06/21 [address] [place] [address] documented as of this encounter
--- OUTSIDE RECORDS SUMMARY | 2022-02-14 11:08 | XMS_ITS | Encounter Summary ---
:1960 Author Organization [facility] [place] [address] Care Team Providers Name Role Phone Beatriz Maurice Primary Care Provider Reason for Visit Reason Onset Date Comments Follow-up 12/26/2021 Encounter Details Date Type Department Care Team Description 12/26/2021 Telephone Hematology and Oncol ogy at [facility] Yazmin Ramirez[place] [address] Social History Tobacco Use Types Packs/Day [...] Telephone Encounter - Yazmin Ramirez, RN - 12/27/2021 9:18 AM EDT LM for pt to contact this RN to check on response to prednisone. Awaiting response. 12/27/21: Spoke to pt. He started prednisone 30 mg po daily this week and has noted that he is eating a little bit more. He is eating toast or an estonian muffin in AM and this is an increase in solid intake. He is drinking 1-2 milkshakes daily, uncertain of caloric content. Instructed him to eat small meals/snacks and/or drink high calorie shakes 4-6 times, no restrictions. He feels that he is staying hydrated but does not have a record of amount of fluid he is drinking. Asked him to log solid and fluid intake to give the Team an idea of nutrition and hydration status. He notes that energy is slightly better and he is feeing less tired. Provided emotional support and reassurance. RTC 12/30/21. Discussed contacting clinic office with further questions or concerns. RN will continue to monitor nutritional status. documented in this encounter Plan of Treatment Upcoming Encounters Date Type Specialty Care Team Description 02/18/2022 Infusion Hematology and Oncology 02/21/2022 Infusion Hematology and Oncology 02/24/2022 Appointment Hematology and Oncology 02/24/2022 Office Visit Hematology and Oncology Parviz Modi MD [facility] DR HEMATOLOGY/[place] [address] Miroslava Pelayo APRN [facility] [address] HEMATOLOGY/[place] [address] 02/24/2022 Office Visit Wound Care 02/24/2022 Appointment Hematology and Oncology 02/26/2022 Office Visit Neurology Leni Bustmaante MD [facility] ER DR NEUROLOGY DEPT. [place], [place] [address] (Wo rk) documented as of this encounter Visit Diagnoses Not on filedocumented in this encounter Additional Health Concerns Infection Onset Date Last Indicated Resolved Time History of C. difficileComment: C. diffiicile 08/20/2021 testing positive 05/25/21. documented as of this encounter Care Teams Corporate Fitness Program Coordinator Relationship Specialty Start Date End Date Beatriz Maurice PA PCP - General Family Medicine 05/06/21 [address] [place] [address] documented as of this encounter
--- OUTSIDE RECORDS SUMMARY | 2022-02-14 11:08 | XMS_ITS | Encounter Summary ---
:1960 Author Organization [facility] Address [facility] [place] [address] Care Team Providers Name Role Phone Beatriz Maurice Primary Care Provider Reason for Visit Auth/Cert Specialty Diagnoses / Procedures Referred By Contact Refer red To Contact Diagnoses AML Procedures PRO DIAGNOSTIC BONE MARROW BIOPSIES & ASPIRATIONS (OSC MSURG) BONE MARROW BIOPSY AND ASPIRATION; DIAGNOSTIC Referral ID Status Reason Start Date Expiration Date Visits Requ ested Visits Authorized [id number] 1 1 Encounter Details Date Type Department Care Team Description 12/23/2021 Hospital Encounter Hematology and Hypomag nesemia; Oncology at [facility] S/P allogeneic bone marrow t ransplant; [facility] Acute mye loid leukemia in remission; Drive [address]AC[address] (acute kidney injury); [place] [address] Dehydration [phone] Social History Tobacco Use Types Packs/Day Years [...] 30 minutes prior to access. Ostomy Supplies [facility] Dispense 2 boxes ( 20 each 11 022 10/box) of Adapt Barrier rings #7805 per month. Ostomy Supplies Dispense 1 bottle of 28.3 g 5 08/20/2021 Powder Adapt stoma powder #[id number] every other month. Ostomy Supplies [facility] Dispense 2 boxes 20 each 11 2 (10/box) of Sensura [place] Soft Convex One-piece Pouch #[id number] per month. Ostomy Supplies [facility] Dispense 2 boxes 40 each 11 2 (20/box) of Brava Elastic Barrier strips #[id number] per month. Ostomy Supplies [facility] Dispense 1 box 50 each 08/20/2021 (50/box) [...] documented as of this encounter Progress Notes Nichelle Rahman RN - 12/23/2021 12:32 PM EDT TIME TREATMENT STARTED: 0 TIME TREATMENT ENDED: 1431 Herber Iverson Jr., 61 y.o. male with diagnosis s/p MUD transplant for relapsed AML is here for hydration and magnesium replacement. S: Herber is quiet and offers no complaints or questions at this time, other than can he have some water to sip prior to bone marrow biopsy [place] [facility] O: Chemotherapy orders independently verified for correct drug name, route and dosage per patient's height, weight and BSA by pharmacy RN, onsite pharmacist, and this RN. Hydration: Normal saline 1Liter administered via smart pump infusion over 2 hrs. Medication: 2gm of IV magnesium replacement infused via smart pump; magnesium at 0.61 noted & infusion okay'd by Shiva Pelayo APRN. REACTIONS (DESCRIPTION, TIME, INTERVENTION AND EFFECTIVENESS) none A: Herber tolerated this treatment well. He slept much of the time today, and is aware that he cannot have anything by mouth until after his procedure this afternoon. Right mediport site WDL and left accessed after 10 ml normal saline flush as Herber is due over at [facility] this RN confirmed intention to use his mediport. Herber ambulated out of infusion area with wheeled walker and accompanied by this RN to his ride waiting in the outer waiting area. P: Return to [facility] clinic/infusion as scheduled for next infusion. During clinic hours (8am-5pm Thursday-Thursday): pt. can call [phone] with questions or concerns. After clinic hours (5pm-8am Thursday-Thursday and weekends) pt can call [phone] and ask for the patcher wood welder/oncologist financial professional. documented in this encounter Plan of Treatment Upcoming Encounters Date Type Specialty Care Team Description 02/18/2022 Infusion Hematology and Oncology 02/21/2022 Infusion Hematology and Oncology 02/24/2022 Appointment Hematology and Oncology 02/24/2022 Office Visit Hematology and Oncology Parviz Modi MD [facility] DR HEMATOLOGY/[place] [address] Miroslava Pelayo APRN [facility] DR HEMATOLOGY/[place] [address] 02/24/2022 Office Visit Wound Care 02/24/2022 Appointment Hematology and Oncology 02/26/2022 Office Visit Neurology Leni Bustamante MD [facility] DR NEUROLOGY DEPT. [place], [place] [address] (Wo rk) documented as of [...] MAR Action Action Date Dose Rate Site magnesium sulfate 2 g in New Bag 12/23/2021 12:28 PM EDT 2 g 25 mL/hr sterile water 50 mL infusion 2 g, Intravenous, DAILY PRN, Starting on Thu12/23/21 at 1200, Until Thu12/24/21 at 0433, Administer over 120 Minutes, hypomag post-stem cell transplant, Please give 2 gms for Magnesium less than 0.60 or less than the low end of normal at [facility] sodium chloride 0.9 % (flush) (BD PosiFlush Given 12/23/2021 2:30 PM EDT 10 mLs Normal Saline 0.9) flush 10-20 mL 10-20 mL, Intravenous, EVERY 1 MIN PRN, Starting on Thu12/23/21 at 0940, Until Thu12/24/21 at 0433, Orthotics Prosthetics Technician, Routine Given 12/23/2021 10:13 AM EDT 20 mLs sodium chloride 0.9% infusion New Bag 12/23/2021 12:26 PM EDT 500 mL/hr 500 mL/hr 500 mL/hr, Intravenous, CONTINUOUS, Starting on Thu12/23/21 at 1230, Until Thu12/24/21 at 0433, 500 mg over 2 hours documented in this encounter Additional Health Concerns Infection Onset Date Last Indicated Resolved Time History of C. difficileComment: C. diffiicile 08/20/2021 testing positive 05/25/21. documented as of this encounter Care Teams Assisted Living Care Manager Relationship Specialty Start Date End Date Beatriz Maurice PA PCP - General Family Medicine 05/06/21 [address] [place] [address] documented as of this encounter
--- OUTSIDE RECORDS SUMMARY | 2022-02-14 11:08 | XMS_ITS | Encounter Summary ---
:1960 Author Organization [facility] Address [address] [facility] [place] [address] Care Team Providers Name Role Phone Beatriz Maurice Primary Care Provider Encounter Details Date Type Department Care Team Description 12/29/2021 Ancillary Procedure Radiology Library at Aruna Maurice [facility] [address] [place] [address] [place] [address] [phone] Social History Tobacco Use Types Packs/Day Years [...] Visit Hematology and Oncology Parviz Modi MD [facility] DR HEMATOLOGY/[place] [address] Miroslava Pelayo APRN [facility] DR HEMATOLOGY/[place] [address] 02/24/2022 Office Visit Wound Care 02/24/2022 Appointment Hematology and Oncology 02/26/2022 Office Visit Neurology Leni Bustamante MD [facility] ER DR NEUROLOGY DEPT. [place], [place] [address] (Wo rk) documented as of this encounter Procedures Procedure Name Priority Date/Time Associated Diagnosis Comme nts FILM LIBRARY Routine 12/29/2021 12:05 AM Results for this STORAGE ONLY CT EDT procedure ar e in HEAD the results section. documented in this encounter Results Film Library- Storage Only CT Head (12/29/2021 12:05 AM EDT) Specimen (Source) Anatomical Location Collection Method / Collectio n Time Received Time / Laterality Volume Narrative RAD - 01/05/2022 8:23 PM EDT This exam is auto-finalizing. It's purpo se is for storage only. Beatriz DE LA FUENTE IMElaine FILM LIBRARY ORDERABLES Performing Organization Address City/State/ZIP Code Phon e Number [place], [place] documented in this encounter Visit Diagnoses Not on filedocumented in this encounter Additional Health Concerns Infection Onset Date Last Indicated Resolved Time History of C. difficileComment: C. diffiicile 08/20/2021 testing positive 05/25/21. documented as of this encounter Care Teams Wood Hacker Relationship Specialty Start Date End Date Beatriz Maurice PA PCP - General Family Medicine 05/06/21 [address] [place] [address] documented as of this encounter
--- OUTSIDE RECORDS SUMMARY | 2022-02-14 11:08 | XMS_ITS | Encounter Summary ---
:1960 Author Organization [facility] [place] [address] Care Team Providers Name Role Phone Beatriz Maurice Primary Care Provider Encounter Details Date Type Department Care Team Description 12/24/2021 Telephone Hematology and Oncol corinne at [facility] [place] [address] Social History Tobacco Use Types Packs/Day [...] this encounter Miscellaneous Notes Telephone Encounter - SlickcharlesAnnika - 12/24/2021 11:07 AM EDT Community Health Rehabilitation Teacher spoke to Morales Herber's partner. I explained my role and offeredher some resources. At this time she didn't think they were needed but will review the website linksI sent her. She said she is trying to get back to work. [place] [employer]- community action, fuel and electrical assistance etc [place] [employer]- food pantry putty maker She has my contact information if she needs further assistance. Annika Santos documented in this encounter Plan of Treatment Upcoming Encounters Date Type Specialty Care Team Description 02/18/2022 Infusion Hematology and Oncology 02/21/2022 Infusion Hematology and Oncology 02/24/2022 Appointment Hematology and Oncology 02/24/2022 Office Visit Hematology and Oncology Parviz Modi MD [facility] DR HEMATOLOGY/[place] [address] Miroslava Pelayo APRN [facility] DR HEMATOLOGY/[place] [address] 02/24/2022 Office Visit Wound Care 02/24/2022 Appointment Hematology and Oncology 02/26/2022 Office Visit Neurology Leni Bustamante MD [facility] DR NEUROLOGY DEPT. [place], [place] [address] (Wo rk) documented as of this encounter Visit Diagnoses Not on filedocumented in this encounter Additional Health Concerns Infection Onset Date Last Indicated Resolved Time History of C. difficileComment: C. diffiicile 08/20/2021 testing positive 05/25/21. documented as of this encounter Care Teams Fabrication And Layout Craftsman Relationship Specialty Start Date End Date Beatriz Maurice PA PCP - General Family Medicine 05/06/21 [address] [place] [address] documented as of this encounter
--- OUTSIDE RECORDS SUMMARY | 2022-02-14 11:08 | XMS_ITS | Encounter Summary ---
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 ?? Herber has been struggling with poor fluid/oral intake since discharge from the hospital in early November requiring readmittance. He has been requiring twice weekly IV hydration/magnesium. He spends a good portion of his day in bed. He has been intermittently unsteady and is at high risk for falling. ?? Last week Dr. Modi added prednisone 30mg po daily. Herber started it on Thursday, 12/25. According to Morales it improved his mood/energy but not his appetite. ?? He was admitted to [facility] Thursday night with confusion, dehydration and worsening renal function. Wehave been trying to get him transferred to [facility] but there is no bed availability. ?? This RN has been in close communication with Herber's partner/caregiver Morales. ?? I called Herber and Morales today at [facility]. Herber reports he is feeling much better and is clear minded. His RN Anson updated me his creatinine went from 3.3 yesterday to 3.1 today. He has been on a continuous infusion of LR. He received a dose of solumedrol. ?? If the medical teams at [facility] and [facility] feel Herber is stable, he is agreeable to a short stay at a rehab center. Herber has chosen [facility] in [place], [place] and [facility] in [facility]. ?? Herber would benefit from PT/OT for mobility and strengthening, fluid/oral intake, medication management. ?? I have reached out to our inpatient/outpatient teams to review the plan and to reach out to the providers at [facility] for their input. A: Herber is agreeable to rehab if medically stable. [facility] will need to submit rehab referrals. P: Continue to provide supportive care as needed. documented in this encounter Plan of Treatment Upcoming Encounters Date Type Specialty Care Team Description 02/18/2022 Infusion Hematology and Oncology 02/21/2022 Infusion Hematology and Oncology 02/24/2022 Appointment Hematology and Oncology 02/24/2022 Office Visit Hematology and Oncology Parviz Modi MD [facility] HEMATOLOGY/[place] [address] Miroslava Pelayo, HEYDI [facility] HEMATOLOGY/[place] [address] 02/24/2022 Office Visit Wound Care 02/24/2022 Appointment Hematology and Oncology 02/26/2022 Office Visit Neurology Leni Bustamante MD [facility] ER DR NEUROLOGY DEPT. [place], [place] [address] (Wo rk) documented as of this encounter Visit Diagnoses Not on filedocumented in this encounter Additional Health Concerns Infection Onset Date Last Indicated Resolved Time History of C. difficileComment: C. diffiicile 08/20/2021 testing positive 05/25/21. documented as of this encounter Care Teams Hl7 Interface Developer Relationship Specialty Start Date End Date Beatriz Maurice PA PCP - General Family Medicine 05/06/21 [address] [place] [address] documented as of this encounter
--- OUTSIDE RECORDS SUMMARY | 2022-02-14 11:08 | XMS_ITS | Encounter Summary ---
:1960 Author Organization [facility] Address [facility] [address] [place] [address] Care Team Providers Name Role Phone Beatriz Maurice Primary Care Provider Reason for Visit Treatment/Therapy Plan Authorization (Routine) - Authorized Specialty Diagnoses / Procedures Referred By Contact Refer red To Contact Hematology and Oncology Diagnoses Acute myeloid leukemia in remission S/P allogeneic bone marrow transplant Hypomagnesemia Hayley Palmer, [facility] Hem Onc 3k Procedures ANITIMETICS MULTIMEDIA SPECIALIST [facility] [address] [place] HEMATOLOGY-ONCOLOGY [id number] [place] [address] Referral ID Status Reason Start Date Expiration Date Visits V isits Requested Authorized [id number] Authorized 11/22/2021 11/22/2022 99 99 Encounter Details Date Type Department Care Team Description 12/20/2021 Hospital Encounter Hematology and Hypomag nesemia; Oncology at [facility] S/P allogeneic bone marrow t ransplant; [facility] Acute mye loid leukemia in remission; Drive [address] (acute kidney injury); [place] [address] Dehydration [phone] Social History Tobacco Use Types Packs/Day Years [...] End Date Colostomy Belt Dispense 1 Sensura [place] 1 each 11 2 (Ostomy Belt Medium) [...] minutes prior to access. Ostomy Supplies [facility] Dispense 2 boxes ( 20 each 022 10/box) of Adapt Barrier rings #7805 per month. Ostomy Supplies Dispense 1 bottle of 28.3 g 5 08/20/2021 Powder Adapt stoma powder #7906 every other month. Ostomy Supplies [facility] Dispense 2 boxes 20 each 11 2 (10/box) of Sensura [place] Soft Convex One-piece Pouch #46623 per month. [facility] Dispense 2 boxes 40 each 2 (20/box) of Brava Elastic Barrier strips #[id number] per month. Ostomy Supplies [facility] Dispense 1 box 50 each 08/20/2021 (50/box) of a generic no-sting skin barrier wipe per month. dronabinoL (Marinol) Take 1 capsule by 28 capsule 0 12/21/19 22 01/14/2022 5 mg Capsule mouth 2 times daily. nystatin (Mycostatin) Take 5 mLs by mouth 4 100 mL 0 10/202112/22/2021 100,000 unit/mL times daily for 5 Suspension days. fluconazole Take 1 tablet by mouth 0 [...] documented as of this encounter Progress Notes Balbina Franco RN - 12/20/2021 1:33 PM EDT Patient Name: Herber Iverson Jr. Patient Age: 61 y.o. Birthdate: 1960 Admit date: 12/20/2021 Attending Physician: No att. providers found Herber Iverson Jr., 61 y.o. male with diagnosis of AML is here for infusion of magnesium replacement and hydration. S: Pt. offers no complaints at this time. Reviewed plan of care for infusion visit; patient verbalized understanding of plan as outlined. O: Orders independently verified for correct drug name, route and dosage per patient's height, weight and BSA by Balbina Franco RN and onsite pharmacist. Medication administered per hospital policy. REACTIONS (DESCRIPTION, TIME, [...] MD [facility] DR HEMATOLOGY/[place] [address] Miroslava Pelayo APRN [facility] [address] HEMATOLOGY/[place] [address] 02/24/2022 Office Visit Wound Care 02/24/2022 Appointment Hematology and Oncology 02/26/2022 Office Visit Neurology Leni Bustamante MD [facility] DR NEUROLOGY DEPT. [place], [place] [address] (Wo rk) documented as of [...] Rate Site heparin (pf) (porcine) (100 Given 12/20/2021 1:22 PM EDT 500 Uni ts units/mL) flush 5 mL syringe 500 Units 500 Units, Intravenous, ONCE PRN, Starting on Thu12/20/21 at 0920, Until 12/21/21 at 0433, Line Care, Routine magnesium sulfate 2 g in sterile water New Bag 12/20/2021 11:0 5 AM EDT 2 g 25 mL/hr 50 mL infusion 2 g, Intravenous, DAILY PRN, Starting on Thu12/20/21 at 1044, Until 12/21/21 at 0433, Administer over 120 Minutes, hypomag post-stem cell transplant, Please give 2 gms for Magnesium less than 0.60 or less than the low end of normal at [facility] sodium chloride 0.9 % (flush) (BD PosiFlush Given 12/20/2021 1:21 PM EDT 20 mLs Normal Saline 0.9) flush 10-20 mL 10-20 mL, Intravenous, EVERY 1 MIN PRN, Starting on Thu12/20/21 at 0920, Until 12/21/21 at 0433, Back Tufter, Routine Given 12/20/2021 9:42 AM EDT 20 mLs sodium chloride 0.9% infusion New Bag 12/20/2021 11:22 AM EDT 500 mL/hr 500 mL/hr 500 mL/hr, Intravenous, CONTINUOUS, Starting on Thu12/20/21 at 1145, Until 12/21/21 at 0433, 500 mg over 2 hours documented in this encounter Additional Health Concerns Infection Onset Date Last Indicated Resolved Time History of C. difficileComment: C. diffiicile 08/20/2021 testing positive 05/25/21. documented as of this encounter Care Teams Dry Can Tender Relationship Specialty Start Date End Date Beatriz Maurice PA PCP - General Family Medicine 05/06/21 [address] [place] [address] documented as of this encounter
--- OUTSIDE RECORDS SUMMARY | 2022-02-14 11:08 | XMS_ITS | Encounter Summary ---
:1960 Author Organization [facility] Address [facility] [address] [place] [place] [address] Care Team Providers Name Role Phone Beatriz Maurice Primary Care Provider Reason for Visit Reason Comments Follow-up Encounter Details Date Type Department Care Team Description 12/20/2021 Office Visit Hematology and Miroslava Pelayo [facility] DR HEMATOLOGY/[place] [address] Hypomagnesemia; [place] [facility] Hayley Macias [facility] HEMATOLOGY-[place] [address] Failure to thrive in adult; [facility] S/P allog eneic bone marrow transplant; [facility] [place] [address] Social History Tobacco Use Types Packs/Day Years [...] Sign Reading Time Taken Comments Blood Pressure 98/77 12/20/2021 9:54 AM EDT Pulse 81 12/20/2021 9:54 AM EDT Temperature 36.4 ??C (97.5 ??F) 12/20/2021 9:54 AM EDT Respiratory Rate 18 12/20/2021 9:54 AM EDT Oxygen Saturation 98% 12/20/2021 9:54 AM EDT Inhaled Oxygen Concentration - - Weight 90.4 kg (199 lb 3.2 oz) 12/20/2021 9:54 AM EDT Height 176 cm (5' 9.29) 12/20/2021 9:54 AM EDT Body Mass Index 29.17 12/20/2021 9:54 AM EDT documented in this encounter Progress Notes Hayley Macias, MANAGER PUBLISHING - 12/20/2021 9:30 AM EDT HEMATOLOGY/BMT CONSULTATION VISIT NOTE CHIEF COMPLAINT: Herber Iverson Jr. is a 61 y.o. male originally referred by Dr. Beatriz Maurice for evaluation of leukemia. He is seen in follow-up today. Data Review (From Recent Hospital discharge summary and the EMR) Admitted to [facility] 04/29/21 for leukocytosus. Discharged 04/30/21 04/30/21 [...] [place] [address]/10,000 ABL1 copies (135.80%.) 08/08/21 Discharged after reinduction with gilteritinib and venetoclax and initial clearance of INSPECTOR GENERAL leukemia. 08/12/21 LP - FELY 08/26/21 LP [...] stroke, BC + VRE, severe mucositis, STACIE Date NPM1 HSCT Day Source Total PMN [place] 05/21/21 43% 08/06/21 135% 09/12/21 1.95% 11/22/21 +31 PB >95% na na 12/23/21 +62 12/13-12/17/21: [place] [facility] for failure to thrive ORIGINAL HISTORY OF PRESENT ILLNESS Herber Iverson Jr. dates the onset of his illness to earlier this summer. He has felt more tired than usual but attributed it to the humidity. About 3 weeks ago his fatigue was so bad that he went to a clinic in [facility]. He was evaluated for a UTI that was negative. 1 week ago today he saw his PCPwho ended up gatting a CBC showing abnormal counts and he was admitted to [facility]. Other than fatigue has had no fevers, chills or drenching sweats. Has lost a few lbs - <10. Appetite has been down recently. No bleeding or bruising. Was very actived when younger - played a lot of sports into his 40's. 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 He is accompanied today by his partner Morales. Herber continues to struggle with oral intake. Since he has been home he has had 1 egg and 1 piece of toast. He reports that he has absolutely no desire to eat and has no appetite. Chai offers smoothies but Herber has been declining. He is adamant that he is not depressed and that he is just not hungry. Is spending a lot of time sleeping. No change in his bowel pattern. Chai also reports that Herber has not been taking his routine evening medications over the last couple of days No focal signs of infection. remainder of review of systems is negative Current tacrolimus dose: 0.5 mg a.m. & 0.5 mg pm (12/02/21) Held today's dose?: Yes Fevers, chills, sweats - none Bleeding, bruising, melena - none Energy level - poor Appetite - no real appetite Colostomy -functioning well, no issues. Some diarrhea but not a lot. 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 Social - has a girlfriend and his [...] adult R62.7 ??? Severe protein-calorie malnutrition E43 MEDICATIONS Current Outpatient Medications Medication Instructions ??? acyclovir (ZOVIRAX) 800 mg, Oral, 2 TIMES DAILY ??? aspirin 81 mg, Oral, DAILY ??? Colostomy Belt (Ostomy Belt Medium) [facility] Dispense 1 Sensura [place] Belt #4238 per month. ??? dronabinoL (MARINOL) 5 mg, Oral, 2 TIMES DAILY ??? flecainide (TAMBOCOR) 50 mg, Oral, 2 TIMES DAILY ??? fluconazole (DIFLUCAN) 200 mg, Oral, DAILY ??? lidocaine-prilocaine (EMLA) Cream Apply to mediport approximately 30 minutes prior to access. ??? loperamide (IMODIUM A-D) 2 mg, Oral, 3 TIMES DAILY ??? magnesium oxide (MAG-OX) 400 mg, Oral, 3 TIMES DAILY ??? metoprolol tartrate (LOPRESSOR) 25 mg, Oral, DAILY ??? nystatin (MYCOSTATIN) 500,000 Units, Oral, 4 TIMES DAILY ??? ondansetron (ZOFRAN) 8 mg, Oral, EVERY 8 HOURS PRN ??? Ostomy Supplies Misc Dispense 2 boxes ( 10/box) of Adapt Barrier rings #7805 per month. ??? Ostomy Supplies Misc Dispense 2 boxes (10/box) of Sensura Flako Soft Convex One-piece Pouch #[id number] month. ??? Ostomy Supplies Misc Dispense 2 boxes (20/box) of Brava Elastic Barrier strips #[id number] per month. ??? Ostomy Supplies Misc Dispense 1 box (50/box) of a generic no-sting skin barrier wipe per month. ??? Ostomy Supplies Powder Dispense 1 bottle of Adapt stoma powder #7906 every other month. ??? pantoprazole EC (PROTONIX) 40 mg, Oral, DAILY ??? rosuvastatin (CRESTOR) 40 mg, Oral, DAILY ??? tacrolimus (PROGRAF) 0.5 mg, Oral, 2 TIMES DAILY ??? tamsulosin (FLOMAX) 0.4 mg, Oral, DAILY ??? vancomycin (VANCOCIN) 125 mg, Oral, 2 TIMES DAILY ALLERGIES/ADR Allergies Allergen Reactions ??? Other [Unclassified Drug] Other (See Comments) Artificial Sweetners-lightheadedness, dizziness ??? Bactoshield Chg [Chlorhexidine Gluconate] Itching and Rash CHG wipes reported he gets a rash and is itchy. PHYSICAL EXAM VITAL SIGNS: Blood pressure 98/77, pulse 81, temperature 36.4 ??C (97.5 ??F), temperature source Temporal, resp. rate 18, height 176 cm (5' 9.29), weight 90.4 kg (199 lb 3.2 oz), SpO2 98 %. GENERAL: Herber Iverson Jr. is a [...] Recent Results (from the past 72 hour(s)) Tacrolimus level Result Value Ref Range Tacrolimus Lvl 2.4 ng/mL Magnesium Result Value Ref Range Magnesium 0.57 (L) 0.69 - 1.07 mmol/L Comprehensive metabolic panel (non-fasting) Result Value Ref Range Glucose Lvl 101 65 - 199 mg/dL BUN 21 (H) 10 - 20 mg/dL Creatinine 1.47 0.80 - 1.50 mg/dL Sodium 138 135 - 145 mmol/L Potassium 4.1 3.5 - 5.0 mmol/L Chloride 107 98 - 107 mmol/L CO2 19 (L) 22 - 31 mmol/L Anion Gap 12 5 - 15 mmol/L Calcium 9.3 8.5 - 10.5 mg/dL Total Protein 6.6 6.1 - 8.0 g/dL Albumin 3.9 3.2 - 5.2 g/dL AST 22 0 - 39 unit/L ALT 20 0 - 55 unit/L Alk Phos 178 (H) 40 - 130 unit/L Total Bilirubin 0.5 0.2 - 1.3 mg/dL Estimated GFR 51 (L) >=60 mL/min/1.73 m?? IgG Result Value Ref Range IgG 1,111 700 - 1,600 mg/dL Hemogram Result Value Ref Range WBC 9.7 (H) 4.0 - 9.5 x10(3)/mcL RBC 2.83 (L) 4.58 - 5.54 x10(6)/mcL Hemoglobin 9.5 (L) 13.7 - 16.5 g/dL Hematocrit 28.0 (L) 40.5 - 48.5 % MCV 98.9 (H) 82.9 - 93.1 fL MCH 33.6 (H) 27.5 - 32.1 pg MCHC 33.9 32.0 - 35.7 g/dL Platelets 61 (L) 145 - 357 x10(3)/mcL RDWSD 72.2 (H) 36.0 - 45.0 fL RDWCV 20.2 (H) 11.4 - 13.8 % MPV 12.1 7.6 - 12.9 fL nRBC % Auto 0.0 % nRBC Abs Auto 0.000 0.000 - 0.000 x10(3)/mcL Differential, Automated Result Value Ref Range Neutrophils % 77.3 % Neutr Abs (ANC) 7.51 (H) 1.70 - 6.10 x10(3)/mcL Lymphocytes % 10.4 % Lymphocytes Abs 1.0 0.9 - 3.2 x10(3)/mcL Monocytes % 7.9 % Monocyte Abs 0.8 0.3 - 0.9 x10(3)/mcL Eosinophils % 3.1 % Eosinophils Abs 0.3 0.0 - 0.4 x10(3)/mcL Basophils % 0.5 % Basophils Abs 0.0 0.0 - 0.1 x10(3)/mcL Immature Gran % 0.80 % Zara Gran Abs 0.08 (H) 0.00 - 0.04 x10(3)/mcL RADIOLOGY - [...] biopsy and chimerism and NPM1 MRD assessment.. --Per Tino et al, Blood 2020 plan to add Idhifa at ~day +60. 2. S/P Colectomy --Herber's colostomy has been functioning well --stool watery / loose. Somewhat improved 3. Renal --Creatinine remains elevated due to inadequate fluid intake --Mag 2 gms IV today -- Fluconazole dose-reduced to 200 mg / [...] back to work as Herber is requiring [id number] care. JENNIFER Teran is working with Herber and Chai to help with their finances through grants, grocery and gas cards. 7. Summary of Plans ?? 1 liter fluids ?? IV Mag in clinic ( 2 gms ) ?? Increase Tacrolimus 1 / 0.5 ?? May restart Bactrim at next visit ?? Continue Fluconazole at 200 mg / day----> increase to 400 mg if creatinine stays stable ?? Continue treatment of oral thrush ?? Follow up with nutrition ?? physical therapy to begin at home ?? Day ~+60 BM Bx - scheduled for 12/23/21 - orders are in including chimerism and NPM1 MRD testing. ?? --Per sangita Jiménez al, Blood 2020 plan to add Idhifa at ~day +60. ?? JENNIFER Teran following ?? Immunizations at 6 months HAYLEY MACIAS APRN Section of Hematology [facility] documented in this encounter Plan of Treatment Upcoming Encounters Date Type Specialty Care Team Description 02/18/2022 Infusion Hematology and Oncology 02/21/2022 Infusion Hematology and Oncology 02/24/2022 Appointment Hematology and Oncology 02/24/2022 Office Visit Hematology and Oncology Parviz Modi MD [facility] DR HEMATOLOGY/[place] [address] Miroslava Pelayo APRN [facility] HEMATOLOGY/[place] [address] 02/24/2022 Office Visit Wound Care 02/24/2022 Appointment Hematology and Oncology 02/26/2022 Office Visit Neurology Leni Bustamante MD [facility] DR NEUROLOGY DEPT. [place], [place] [address] (Wo rk) documented as of this encounter Visit Diagnoses Diagnosis Hypomagnesemia Disorders of magnesium metabolism Failure to thrive in adult Adult failure to thrive S/P allogeneic bone marrow transplant Bone marrow replaced by transplant Acute leukemia in remission Acute leukemia of unspecified cell type in remission documented in this encounter Additional Health Concerns Infection Onset Date Last Indicated Resolved Time History of C. difficileComment: C. diffiicile 08/20/2021 testing positive 05/25/21. documented as of this encounter Care Teams Proof Tester Relationship Specialty Start Date End Date Beatriz Maurice PA PCP - General Family Medicine 05/06/21 [address] [place], [place] [address] documented as of this encounter
--- OUTSIDE RECORDS SUMMARY | 2022-02-14 11:08 | XMS_ITS | Encounter Summary ---
:1960 Author Organization [facility] Address [facility] [place] [address] Care Team Providers Name Role Phone Beatriz Maurice Primary Care Provider Reason for Visit Reason Comments Follow-up Auth/Cert Specialty Diagnoses / Procedures Referred By Contact Refer red To Contact Diagnoses AML Procedures PRO DIAGNOSTIC BONE MARROW BIOPSIES & ASPIRATIONS (OSC MSURG) BONE MARROW BIOPSY AND ASPIRATION; DIAGNOSTIC Referral ID Status Reason Start Date Expiration Date Visits Requ ested Visits Authorized [id number] 1 1 Encounter Details Date Type Department Care Team Description 12/23/2021 Office Visit Hematology and Miroslava Pelayo [facility] DR HEMATOLOGY/[place] [address] Hypomagnesemia; [place] [facility] Hayley Macias [facility] DR HEMATOLOGY[place] [address] Severe protein-calorie malnutrition; [facility] S/P allog eneic bone marrow transplant; Drive STACIE (acute kidney injury); [place], [place] Acute myeloid l eukemia in remission; [id number] Failure to thrive in adult [phone] Social History Tobacco Use Types Packs/Day Years [...] Sign Reading Time Taken Comments Blood Pressure 115/79 12/23/2021 10:33 AM EDT Pulse 109 12/23/2021 10:33 AM EDT Temperature 36.1 ??C (97 ??F) 12/23/2021 10:33 AM EDT Respiratory Rate 20 12/23/2021 10:33 AM EDT Oxygen Saturation 100% 12/23/2021 10:33 AM EDT Inhaled Oxygen Concentration - - Weight 89.3 kg (196 lb 12.8 oz) 12/23/2021 10:33 AM EDT Height 176 cm (5' 9.29) 12/23/2021 10:33 AM EDT Body Mass Index 28.82 12/23/2021 10:33 AM EDT documented in this encounter Progress Notes Hayley Macias, EATING DISORDER SPECIALIST - 12/23/2021 10:45 AM EDT HEMATOLOGY/BMT CONSULTATION VISIT NOTE CHIEF COMPLAINT: Herber Iverson Jr. is a 61 y.o. male originally referred by Dr. Beatriz Maurice for evaluation of leukemia. He is seen in follow-up today. Data Review (From Recent Hospital discharge summary and the EMR) Admitted to [facility] 04/29/21 for leukocytosus. Discharged 04/30/21 04/30/21 CBC [...] [place] [address]/10,000 ABL1 copies (135.80%.) 08/08/21 Discharged after reinduction with gilteritinib and venetoclax and initial clearance of RETAIL MERCHANDISING COORDINATOR leukemia. 08/12/21 LP - FELY 08/26/21 LP [...] Date NPM1 HSCT Day Source Total PMN [place] 05/21/21 43% 08/06/21 135% 09/12/21 1.95% 11/22/21 +31 PB >95% na na 12/23/21 +62 12/13-12/17/21: Admission [place] [facility] for failure to thrive ORIGINAL HISTORY OF PRESENT ILLNESS Herber Iverson Jr. dates the onset of his illness to earlier this summer. He has felt more tired than usual but attributed it to the humidity. About 3 weeks ago his fatigue was so bad that he went to a clinic in [facility]. He was evaluated for a UTI that was negative. 1 week ago today he saw his PCPwho ended up gatting a CBC showing abnormal counts and he was admitted to [facility]. Other than fatigue has had no fevers, chills or drenching sweats. Has lost a few lbs - <10. Appetite has been down recently. No bleeding or bruising. Was very actived when younger - played a lot of sports into his 40's. 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 He is accompanied today by his [...] evening medications over the last couple of days. Has persistent oral thrush; has not been using Nystatin routinely. Has not started PT - Herber needs to follow up with a missed call [facility] coming by the house for evaluation. No focal signs of infection. 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 Social - has a girlfriend and his [...] DAILY ??? Colostomy Belt (Ostomy Belt Medium) [facility] [place] [place] Dispense 1 Sensura Hawi Belt #4237 per month. ??? dronabinoL (MARINOL) 5 mg, [...] Misc Dispense 2 boxes (10/box) of Sensura Hawi Soft Convex One-piece Pouch #[id number] month. ??? Ostomy Supplies Misc Dispense 2 boxes (20/box) of Brava Elastic Barrier strips #[id number] per month. ??? Ostomy Supplies Misc Dispense [...] itchy. PHYSICAL EXAM VITAL SIGNS: Blood pressure 115/79, pulse (!) 109, temperature 36.1 ??C (97 ??F), temperature sourceTemporal, resp. rate 20, height 176 cm (5' 9.29), weight 89.3 kg (196 lb 12.8 oz), SpO2 100 %. GENERAL: Herber Iverson Jr. [...] Recent Results (from the past 72 hour(s)) Hemogram Result Value Ref Range WBC 8.3 4.0 - 9.5 x10(3)/mcL RBC 2.93 (L) 4.58 - 5.54 x10(6)/mcL Hemoglobin 9.8 (L) 13.7 - 16.5 g/dL Hematocrit 29.2 (L) 40.5 - 48.5 % MCV 99.7 (H) 82.9 - 93.1 fL MCH 33.4 (H) 27.5 - 32.1 pg MCHC 33.6 32.0 - 35.7 g/dL Platelets 58 (L) 145 - 357 x10(3)/mcL RDWSD 71.8 (H) 36.0 - 45.0 fL RDWCV 19.6 (H) 11.4 - 13.8 % MPV 12.2 7.6 - 12.9 fL nRBC % Auto 0.0 % nRBC Abs Auto 0.000 0.000 - 0.000 x10(3)/mcL Differential, Automated Result Value Ref Range Neutrophils % 77.4 % Neutr Abs (ANC) 6.42 (H) 1.70 - 6.10 x10(3)/mcL Lymphocytes % 10.9 % Lymphocytes Abs 0.9 0.9 - 3.2 x10(3)/mcL Monocytes % 7.5 % Monocyte Abs 0.6 0.3 - 0.9 x10(3)/mcL Eosinophils % 2.8 % Eosinophils Abs 0.2 0.0 - 0.4 x10(3)/mcL Basophils % 0.7 % Basophils Abs 0.1 0.0 - 0.1 x10(3)/mcL Immature Gran % 0.70 % Zara Gran Abs 0.06 (H) 0.00 - 0.04 x10(3)/mcL RADIOLOGY - [...] back to work as Herber is requiring [id number] care. JENNIFER Teran is working with Herber and Chai to help with their finances through grants, grocery and gas cards. 7. Summary of Plans ?? 1 liter fluids ?? IV Mag in clinic ( 2 gms ) ?? Continue Tacrolimus 1 / 0.5 ?? May restart [...] months HAYLEY MACIAS APRN Section of Hematology [facility] documented in this encounter Plan of Treatment Upcoming Encounters Date Type Specialty Care Team Description 02/18/2022 Infusion Hematology and Oncology 02/21/2022 Infusion Hematology and Oncology 02/24/2022 Appointment Hematology and Oncology 02/24/2022 Office Visit Hematology and Oncology Parviz Modi MD [facility] HEMATOLOGY/[place] [address] Miroslava Pelayo APRN [facility] DR HEMATOLOGY/[place] [address] 02/24/2022 Office Visit Wound Care 02/24/2022 Appointment Hematology and Oncology 02/26/2022 Office Visit Neurology Leni Bustamante MD [facility] NEUROLOGY DEPT. [place], [place] [address] (Wo rk) documented as of this encounter Visit Diagnoses Diagnosis Hypomagnesemia Disorders of magnesium metabolism Severe protein-calorie malnutrition Other severe protein-calorie malnutritio n S/P allogeneic bone marrow transplant Bone marrow replaced by transplant STACIE (acute kidney injury) Acute kidney failure, unspecified Acute myeloid leukemia in remission Failure to thrive in adult Adult failure to thrive documented in this encounter Additional Health Concerns Infection Onset Date Last Indicated Resolved Time History of C. difficileComment: C. diffiicile 08/20/2021 testing positive 05/25/21. documented as of this encounter Care Teams Graphic Design Intern Relationship Specialty Start Date End Date Beatriz Maurice PA PCP - General Family Medicine 05/06/21 [address] [place] [address] documented as of this encounter
--- OUTSIDE RECORDS SUMMARY | 2022-02-14 11:09 | XMS_ITS | Encounter Summary ---
:1960 Author Organization [facility] [place] [address] Care Team Providers Name Role Phone Beatriz Maurice Primary Care Provider Encounter Details Date Type Department Care Team Description 12/13/2021 Hospital Encounter 1 [facility] Jannie Dominguez MD [facility] [place] [address] [place] [address] [phone] Social History Tobacco Use Types Packs/Day Years [...] Visit Hematology and Oncology Parviz Modi MD [facility] DR HEMATOLOGY/[place] [address] Miroslava Pelayo APRN [facility] HEMATOLOGY/[place] [address] 02/24/2022 Office Visit Wound Care 02/24/2022 Appointment Hematology and Oncology 02/26/2022 Office Visit Neurology Leni Bustamante MD [facility] DR NEUROLOGY DEPT. [place], [place] [address] (Wo rk) documented as of this encounter Visit Diagnoses Diagnosis Hypomagnesemia Disorders of magnesium metabolism documented in this encounter Admitting Diagnoses Diagnosis Failure to thrive in adult Adult failure to thrive documented in this encounter Additional Health Concerns Infection Onset Date Last Indicated Resolved Time History of C. difficileComment: C. 08/20/2021 08/20/2021 diffiicile testing positive 05/25/21. Rule Out Respiratory 12/13/2021 12/13/2021 12/13/2021 8:42 PM EDT Rule Out COVID-19 12/13/2021 12/13/2021 12/13/2021 8:4 2 PM EDT documented as of this encounter Care Teams Medical Health Researcher Relationship Specialty Start Date End Date Beatriz Maurice PA PCP - General Family Medicine 05/06/21 [address] [place] [address] documented as of this encounter
--- OUTSIDE RECORDS SUMMARY | 2022-02-14 11:09 | XMS_ITS | Encounter Summary ---
:1960 Author Organization [facility] Address [facility] [place] [address] Care Team Providers Name Role Phone Beatriz Maurice Primary Care Provider Encounter Details Date Type Department Care Team Description 12/12/2021 Orders Only Hematology and Oncology Parviz Modi MD at [facility] Catie narvaez HEMATOLOGY/[place] [address] [place] [address] [phone] (Wo rk) Social History Tobacco Use Types [...] Visit Hematology and Oncology Parviz Modi MD [facility] DR HEMATOLOGY/[place] [address] Miroslava Pelayo APRN [facility] HEMATOLOGY/[place] [address] 02/24/2022 Office Visit Wound Care 02/24/2022 Appointment Hematology and Oncology 02/26/2022 Office Visit Neurology Leni Bustamante MD [facility] NEUROLOGY DEPT. [place], [place] [address] (Wo rk) documented as of this encounter Visit Diagnoses Not on filedocumented in this encounter Additional Health Concerns Infection Onset Date Last Indicated Resolved Time History of C. difficileComment: C. diffiicile 08/20/2021 testing positive 05/25/21. documented as of this encounter Care Teams Ecological Modeler Relationship Specialty Start Date End Date Beatriz Maurice PA PCP - General Family Medicine 05/06/21 [address] [place] [address] documented as of this encounter
--- OUTSIDE RECORDS SUMMARY | 2022-02-14 11:09 | XMS_ITS | Encounter Summary ---
:1960 Author Organization [facility] [place] [address] Care Team Providers Name Role Phone Beatriz Maurice Primary Care Provider Reason for Referral Home Health Care (Routine) - Authorized Specialty Diagnoses / Procedures Referred By Contact Refer red To Contact Diagnoses Failure to thrive in adult Khalif Carcamo MD [facility] R HEMATOLOGY/[place] [address] Referral ID Status Reason Start Date Expiration Visits Visits Date Requested Authorized [id number] Authorized Consult, 12/17/2021 06/15/2022 999 999 Test & Treat Reason for Visit Auth/Cert Specialty Diagnoses / Procedures Referred By Contact Refer red To Contact Diagnoses Failure to thrive in adult Procedures EMERGENCY IPI Referral ID Status Reason Start Date Expiration Date Visits Requ ested Visits Authorized [id number] 1 1 Encounter Details Date Type Department Care Team Description 12/13/2021 - Hospital Hematology Jose Joyner MD [facility] DR HEMATOLOGY/[place] [address] Hypomagnesemia; 12/17/2021 Encounter Care Unit Urban Jones MD [facility] [place] [address] S/P allogeneic bone marrow transplant; [facility] Khalif Carcamo MD [facility] HEMATOLOGY/[place] [address] Acute myeloid leukemia in remission; Hospital STACIE (acute kidney injury); [facility] Dehydrati on; [place] [id number] Social History Tobacco Use Types Packs/Day Years [...] Sign Reading Time Taken Comments Blood Pressure 142/83 12/17/2021 11:56 AM EDT Pulse 77 12/17/2021 11:17 AM EDT Temperature 36.5 ??C (97.7 ??F) 12/17/2021 11:56 AM EDT Respiratory Rate 18 12/17/2021 11:56 AM EDT Oxygen Saturation 99% 12/17/2021 11:56 AM EDT Inhaled Oxygen Concentration - - Weight 91.4 kg (201 lb 8 oz) 12/13/2021 4:42 PM EDT Height 176 cm (5' 9.29) 12/13/2021 4:42 PM EDT Body Mass Index 29.51 12/13/2021 4:42 PM EDT documented in this encounter Discharge Summaries Deng Yost MD - 12/17/2021 1:10 PM EDT Images from the original note were not included. Discharge Summary Patient Name: Herber Iverson JrNabil Patient Age: 61 y.o. Language: Tuvaluan Race: White Ethnicity: Not nor Admit date: 12/13/2021 Discharge date and time: 12/17/2021 Attending Physician: Khalif Carcamo MD Discharge Physician: Deng Yost MD ID: Herber Iverson Jr. is a 61 y.o. 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 ??He is urrently admitted for failure to thrive, STACIE (likely 2/2 to dehydration) and thrush Follow-up Recommendations for Providers: 1) The patient initially presented with a STACIE likely in the setting of dehydration and possible ATN for prolonged dehydration and nephrotoxic med use. His creatinine down trended from 2.8 > 1.53 with IVF. Please check BMP, Mg and Phosphate at next appointment. Monitor weights (last weight was 201 lbs) and hydration status and please give IVF appearing dehydrated. 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 Please continue to monitor for new increased ostomy output, new nausea or dysphagia and consider restarting steroids along with possible EGD. 3) Please check a tacrolimus level, EBV PCR and blood chimerism at follow up appointment. His last tacrolimus level was low at 0.43 after he was switched briefly to oral liquid formulation but was restarted on 0.5 mg BID capsules which was his previous regimen. 4) He was discharged on Marinol 5 mg BID for appetite stimulation. Please follow up on PO intake at follow up meeting and consider outpatient nutrition referral. Can also consider Remeron for both appetite stimulation and depressive mood. 5) He was discharged on a dose reduced fluconazole regimen in setting of STACIE. Please increase back to 400 mg daily if creatinine clearance remains >50. 6) He was given IV pentamidine on 12/13. He will need another injection on 01/12 if he is not restarted on bactrim for PJP PPx. 7) Please follow up on progress of home physical therapy as patient remained weak during his admission 8) Please monitor mood which appears to be driving a lack of motivation. He had declined seeing a therapist and declined pharmacologic antidepressant while he was in the hospital. 9) Please obtain a CBC at follow up appointment and transfuse for Hgb <8 or Plts <20. Discharge Diagnoses (Hospital Problems) and Secondary Diagnoses (Chronic Problems): Active Hospital Problems Diagnosis ??? Severe protein-calorie malnutrition < or equal to 50% of estimated energy requirement for > or equal to 5 days and >5% weight loss in 1 month is consistent with severe protein-calorie malnutrition in the setting of acute illness or injury related to chronic AML diagnosis and treatment. (Alis quesada al, JPEN J Parenteral Enteral Nutr. 2012 December; 36(3): 273-83) ??? Failure to thrive in adult ??? S/P allogeneic bone marrow transplant Resolved Hospital Problems No resolved problems to display. Active Non-Hospital Problems Diagnosis ??? Hypomagnesemia ??? STACIE (acute kidney injury) ??? Dehydration ??? Paroxysmal atrial fibrillation ??? GERD (gastroesophageal reflux disease) ??? BPH (benign prostatic hyperplasia) ??? AML (acute myeloblastic leukemia) ??? Attention to ileostomy ??? Clostridium difficile colitis ??? Acute leukemia History of Presentation (per 12/13/2021 Admission H&P): Per Dr. Modi's Note on 12/09/21: ? ORIGINAL HISTORY OF PRESENT ILLNESS Herber Iverson Jr.??dates the onset of his??illness to earlier this summer. He has felt more tired than usual but attributed it to the humidity. About 3 weeks ago his fatigue was so bad that [facility]. ??He was evaluated for a UTI that was negative. 1 week ago today he saw hisPCP who ended up gatting a CBC showing abnormal counts and he was admitted to [facility]. Other than fatigue has had no fevers, chills or drenching sweats. ??Has lost a few lbs - <10. ??Appetite has been down recently. ??No bleeding or bruising. ??Was very actived when younger - played a lot of sports into his 40's. ?? Admitted to [facility] 04/29/21 for leukocytosus. ??Discharged 04/30/21 04/30/21?CBC - 40.7/8.09/05 ?ANC - 3,210 ?ALC - 12.85 ?AMC - 13.660 ?LDH - 655 ?COVIC-19 - NEG ?? 05/06/21?DH admission for likely AML ?BM Bx??- >95% cellular wit >90% myeloblasts ?CG??- normal male karyotype ?NGS??- + mutations in NPM1, FLT3 ??ITD and DNM3TA ?? 05/08/21?D1 7&3 + midostauren induction ?? 105/21?Day +14 BM Bx - hypocellular, <5% blasts ?NPM1 gene Mutation analysis:??Positive for NPM1 mutation. The quantitative level of mutated NPM1 transcript is 4273/10,000 ABL1 copies (42.73%.) ?? 05/26/21??Partial bowel resection for toxic megacolon and sepsis due to C. Diff infection. ?? 06/07/21??Recovery BM Bx - NC marrow with NTLM and 3.5% blasts c/w remission. ?? 07/04/21??BM Bx - hypercellular with 26% blasts --> relapsed AML ?? 07/12/21??LP - positive foir myeloblasts (53% of 117 WBC/uL) ?? 07/29/21??LP - FELY on LP/IT chemo #6 ?? 07/31/21??venetoclax plus gilteritinib reinduction started ?LP - FELY - plan to change to weekly LP and IT chemo. ?? 08/05/21??LP - FELY ?? 08/06/21??BM Bx - 90% cellular with increased immature precursors suggestive of persistent diseasebut low blast count.?N ?NPM1 gene Mutation analysis:??Positive for NPM1 mutation. [place] 55543/10,000 ABL1 copies (135.80%.) ?? 08/08/21??Discharged after reinduction with gilteritinib and venetoclax and initial clearance of CNSleukemia. ?? 08/12/21??LP - FELY ?? 08/26/21?LP - FELY ?? 09/05/20?LP - FELY ?? 09/09/20?LP - FELY ?? 09/12/20?BM Bx - Normocellular marrow (~50%) showing no increase in blasts, left-shifted erythroid hyperplasia and dysplasia, a relative granulocyte hypoplasia, and atypical megakaryocytes. ?NPM1 gene Mutation analysis -??1.95% ?? 10/15/21?Transplant summary ?Admit: 10/15/2021 ?Discharge: 11/18/2021 ?MUD transplant ?Conditioning: Fludarabine, Busulfan, Rabbit ?ATG, MTX post stem cell infusion ?Day 0 = 10/22/2021 ?Donor ABO: O neg ?Recipient ABO: O pos ?CMV: Both Negative ?Donor sex: Male ?Complications:??Isch emic stroke, BC + VRE, severe mucositis, STACIE ?? Date NPM1 HSCT Day Source Total PMN [place] 10/5/21 43% ? 08/06/21 135% ? 09/12/21 1.95% ? 11/22/21 ?? +31 PB >95% na na 12/23/21 ?? +62 ? He presented to clinic on 12/09/21 (Day + 48; day 0 was on 10/22/21 for MUD stem cell transplant for relapsed AML with ASSEMBLER RADIO AND ELECTRICAL disease). At the appointment he was noted to be not doing well with poor PO intake. His creatinine at this time was up to 2.8 from a baseline of ~0.9. His weight was also noted to bedown 13 lbs at that time. There was no concern at that time for new infection. 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 ?? In discussion with Herber and his partner Chai they describe that Herber has been having poor oral intake (both solids and liquids) since he came back from his transplant. He also has significant fatigue.He says the lack of intake is due to him having no tastebuds along with a lack of appetite but he denies difficulty swallowing, abdominal pain, significant nausea or new increased output from his ostomy. He also denies new headaches, fevers, chills, night sweats, chest pain, shortness of breath, palpitations, dizziness/lightheadedness, bloody/black stools, dysuria, hematuria, new skin rashes/infections. He has been taking all of his medications as prescribed. He denies recent sick contacts or travel Hospital Course: Herber Iverson Jr. was admitted to the Hematology/Oncology Service on 12/13/2021 in stable condition. The following issues were addressed and he was discharged on 12/17/2021. ?? # Failure to Thrive # Severe Protein Calorie Malnutrition?? # Hypovolemia # Oral Candiasis # EBV + # Oral Candiasis Patient presented HDS, appearing fatigued, endorsing poor PO intake due to lack of appetite. Initialinfectious workup showed negative UA, CMV PCR, RVP. CXR showed atelectasis, trace pleural effusions,without opacities. Blood cultures were negative for three days on day of discharge. EBV PCR on 12/09 was noted 100 (from < 35 3 weeks prior). Repeat EBV PCR was still pending at time of discharge. While he was in the hospital we was followed by nutrition who recommended frequent intake of calorie dense meals. He was started on Marinol for appetite stimulation which appeared to help slightly. In regards to his dehydration he was continued on IVF throughout his hospital stay with improvement in overall clinical picture. In regards to his thrush he was kept on nystatin swish and swallow rinses QID with some improvement throughout his hospital stay. At the time of discharge his symptoms did not appear consistent with GI GVHD so the budesonide was stopped. We also had physical therapy see him who recommended home with physical therapy and occupational therapy following discharge. ?? # STACIE (b/l creatinine 0.9) # Hypomagnesmia #hyperkalemia #hyperphosphatemia Patient's BUN/Cr on admission was 45 and 2.8 respectively. STACIE thought likely pre-renal in setting of dehydration, and possibly ATN given duration of dehydration and nephrotoxic medication use while having STACIE. He received continuous IVF while he was in the hospital with improvement of his creatinine t o 1.53 at time of discharge. His discharge potassium and phosphate had normalized over 24 hours at the time of discharge. He continued to receive IV magnesium replacement during his hospitalization andwas transitioned to oral magnesium supplementation at time of discharge. ?? # AML FLT3+ c/b relapse disease # MUD Allogenic Stem Cell Transplant Patient was day +53 on admission. His home tacrolimus 0.5mg BID was incresaed to 0.6mg BID liquid (based on last tacrolimus level 5.0 on 12/13). His tacrolimus level following this change was 4.3 and the previous 0.5 mg BID capsule dose was restarted per recommendations by the television schedule coordinator with plan torecheck a tacrolimus later in the week. His fluconazole at time of discharge was continued on a lower dose given his STACIE at 200 mg daily and he remained on acyclovir 800 mg BID. He also received IV pentamadine on 12/13 for PJP PPx while he is off bactrim. # Atrial Fibrillation An EKG on admission showed NSR. He was monitored on telemetry initially with no issues. He was continued on flecainide 50mg BID. He was continued on home metoprolol tartrate 25mg daily, rates were wellcontrolled. ?? # Hx of Ischemic Stroke He was continued on aspirin 81 mg daily and dose reduced rosuvastatin 10 mg daily which was changed back to 40 mg daily at time of discharge. ?? # Hx of C.diff Colitis c/b Toxic Megacolon s/p partial colectomy He was continued on home vancomycin 125 BID for C.diff PPx. He was continued on home loperamide BID. ?? # BPH He was continued on home tamsulosin 0.4 mg daily ?? # GERD He was continued on home pantoprazole 40 mg daily. Important Studies and Lab Data: ADMISSION BASIC LABS: 12/13/21 0920 12/09/21 1050 WBC 8.4 10.7* NEUTROABS 6.39* 7.62* NRBCABS 0.000 0.030* HGB 9.6* 9.7* HCT 29.0* 29.5* PLATELET 73* 87* MCV 100.0* 98.7* ?? Recent Labs 12/13/21 0920 12/09/21 1050 NA 135 134* CL 105 101 CO2 16* 17* K 5.0 5.3* MAGNESIUM 0.66* 0.68* CALCIUM 9.9 9.6 BUN 45* 35* CREATININE 2.80* 2.85* ?? LFTs Recent Labs 12/13/21 0920 12/09/21 1050 PROT 7.3 7.4 ALBUMIN 3.9 4.0 AST 16 22 ALT 15 22 ALKPHOS 287* 453* BILITOT 0.4 0.5 ? IgG level 12/09: 1326 CMV PCR 12/09/21- not detected EBV PCR 12/09/21- 100 Tacrolimus Level 12/13/21- 5.0 DISCHARGE BASIC LABS: Recent Labs 12/17/21 0430 12/16/21 0240 12/15/21 0044 WBC 4.9 4.3 5.6 HGB 8.2* 8.4* 8.3* HCT 24.8* 26.0* 25.1* PLATELET 43* 44* 49* Recent Labs 12/17/21 0430 12/16/21 0240 12/15/21 1640 12/15/21 0044 NA 139 140 138 138 K 4.4 4.7 5.3* 4.9 CL 112* 113* 113* 113* CO2 16* 16* 16* 16* BUN 20 27* 30* 34* CREATININE 1.53* 1.75* 1.89* 2.14* MAGNESIUM 0.54* 0.71 0.75 0.93 PHOS 3.3 3.3 -- 3.5 Recent Labs 12/17/21 0430 12/16/21 0240 12/15/21 0044 BILITOT 0.3 0.3 0.3 BILIDIR 0.1 0.1 0.1 AST 15 16 15 ALT 12 11 13 ALKPHOS 173* 197* 209* Tacrolimus 12/16/21 - 4.3 Microbiology: 12/13: BCx x 2 NGTD for three days 12/13: RVP negative 12/13 COVID negative 12/13 UA negative for infection 12/09: CMV PCR negative 12/09: EBV PCR 100; 11/22 EBV PCR < Pertinent radiology/diagnostic studies: 12/13 CXR: IMPRESSION Subsegmental atelectasis at left base, with or without trace Effusion. Discharge Conditions/Prognosis: Upon discharge the pt is hemodynamically stable, afebrile, ambulatory without supplemental oxygen, holding down food/drink, and pain free. Vital Signs: Last value Range last 24 hrs Temperature Temp: 36.5 ??C (97.7 ??F) Temp: [36.4 ??C (97.5 ??F)-36.9 ??C (98.4 ??F)] Heart Rate Heart Rate: 71 Heart Rate: -- Blood Pressure BP: 142/83 BP: (124-160)/(73-87) Respiratory Rate Resp: 18 Resp: [16-18] SpO2 SpO2: 99 % SpO2: [96 %-99 %] Discharge to: home with services Discharge Medications: Your Medications New Medications Dose Details dronabinoL 5 mg Cap Commonly known as: Marinol Take 1 capsule by mouth 2 times daily. 5 mg Quantity: 28 capsule Refills: 0 Continued medications with new dosing Dose Details fluconazole 200 mg Tab Commonly known as: Diflucan Take 1 tablet by mouth daily. Start taking on: December 18, 2021 What changed: how much to take 200 mg Refills: 0 tacrolimus 0.5 mg Cap Commonly known as: Prograf Take 1 capsule by mouth 2 times daily. What changed: Another medication with the same name was removed. Continue taking this medication, and follow the directions you see here. 0.5 mg Quantity: 60 capsule Refills: 3 Continued [...] 50 mg Quantity: 60 tablet Refills: 3 lidocaine-prilocaine Crea Commonly known as: EMLA Apply [...] 25 mg Quantity: 30 tablet Refills: 5 nystatin 100,000 unit/mL Susp Commonly known as: Mycostatin Take 5 mLs by mouth 4 times daily for 5 days. 500,000 Units Quantity: 100 mL Refills: 0 ondansetron 8 mg Tab Commonly known as: Zofran Take 1 tablet by mouth every 8 hours as needed for Nausea. 8 mg Quantity: 20 tablet Refills: 1 Ostomy Belt Medium Misc Dispense 1 Sensura [place] Belt #[id number] per month. Generic drug: Colostomy Belt Quantity: 1 each Refills: 11 * Ostomy Supplies Misc Dispense 2 boxes ( 10/box) of Adapt Barrier rings #[id number] per month. Quantity: 20 each Refills: 11 * Ostomy Supplies Powd Dispense 1 bottle of Adapt stoma powder #[id number] every other month. Quantity: 28.3 g Refills: 5 * Ostomy Supplies Misc Dispense 2 boxes (10/box) of Sensura Flako Soft Convex One-piece Pouch #[id number] per month. Quantity: 20 each Refills: 11 * Ostomy Supplies Misc Dispense 2 boxes (20/box) of Brava Elastic Barrier strips #[id number] per month. Quantity: 40 each Refills: 11 * Ostomy Supplies Misc Dispense 1 box (50/box) of a generic no-sting skin barrier wipe per month. Quantity: 50 each Refills: 11 pantoprazole EC 40 mg Tbec Commonly known as: Protonix Take 1 tablet by mouth daily. 40 mg Quantity: 90 tablet Refills: 3 rosuvastatin 40 mg Tab Commonly known as: [...] to review them with you. STOPPED Medications budesonide EC 3 mg Cecx Commonly known as: Entocort EC gabapentin 100 mg Cap Commonly known as: Neurontin gilteritinib 40 mg tablet Commonly known as: Xospata metoprolol succinate XL 50 mg Tablet sr Commonly known as: Toprol-XL sulfamethoxazole-trimethoprim DS 800-160 mg Tab Commonly known as: Bactrim DS Updated Allergies/ADRs: Allergies Allergen Reactions ??? Other [Unclassified Drug] Other (See Comments) Artificial Sweetners-lightheadedness, dizziness ??? Bactoshield Chg [Chlorhexidine Gluconate] Itching and Rash CHG wipes reported he gets a rash and is itchy. Instructions Given to Patient at Discharge: Patient Instructions Instructions on Discharge to Home Why you were hospitalized - You were hospitalized for ongoing dehydration and weight loss over the last month in the setting of loss of appetite and decreased taste. You also were noted to have a kidney injury due to the dehydration. While you in the hospital you were continued on fluids and we started you on an appetite stimulate. We also continued to monitor your kidney function which improved throughout your stay and we replaced electrolytes including magnesium which was intermittently low. We also had you see a physical therapist who recommended ongoing physical therapy at home. We will have you be seen on Thursday12/20/21 for fluids, labs and a office visit. Call your doctor or seek medical attention if you develop the following - fevers, chills, night sweats, chest pain, racing heart, lightheadedness, shortness of breath, abdominal pain, nausea/vomiting, bloody or black stools, greatly increasing or decreasing ostomy output, pain when you urinate, blood in your urine or new rashes or skin changes, Activity level - no restrictions. Continue working with PT Diet - no change in previous diet Driving - as before hospitalization Shower/Bath - permitted Wound Care - none Changes in Your Medications: New Medications: Dronabinol- please take one 5 mg capsule twice a day for appetite stimulation (can take one hours prior to lunch and dinner). Medication dose changes: Fluconazole- Please take one 200 mg tablet once a day for fungal prophylaxis Stop these medications: Gabapentin Budesonide Bactrim Follow-up: The 12/19/21 appointment at may be canceled if a spot opens up at the infusion suite at [facility] Future Appointments Date Time Provider Department Center 12/19/2021 2:00 PM [facility] INFUSION, ROOM [facility] Hem [facility] 12/20/2021 8:45 AM ACCESS ROOM [facility] INF [address] [place] [address] 12/20/2021 9:30 AM Miroslava Pelayo APRN [facility] HEM ONC [facility] 12/23/2021 9:45 AM ACCESS ROOM [facility] INF [address] [place] [address] 12/23/2021 10:45 AM Parviz Modi MD [facility] HEM ONC [facility] 12/23/2021 12:00 PM LEB INFUSION THERAPY [facility] INF [address] [place] [address] 12/24/2021 9:[address] [facility] HEM ONC [facility] 12/26/2021 10:30 AM Neno Arora MD [facility] CARD 4A [facility] 12/26/2021 2:00 PM [facility] INFUSION, ROOM [facility] Hem [facility] 12/30/2021 9:45 AM ACCESS ROOM [facility] INF [address] [place] [address] 12/30/2021 10:45 AM Parviz Modi MD [facility] HEM ONC [facility] 12/30/2021 12:00 PM LEB INFUSION THERAPY [facility] INF 3K [facility] 01/02/2022 2:00 PM [facility] INFUSION, ROOM [facility] Hem [facility] 01/06/2022 9:00 AM [facility] NM THU MH Nuc Med [facility] 01/06/2022 9:30 AM [facility] NM ROOM 2 MH Nuc Med [facility] 01/06/2022 10:15 AM NUCLEAR STRESS MH NI Card [facility] 01/06/2022 10:20 AM [facility] NM STRESS MH Nuc Med [facility] Rad 01/06/2022 10:35 AM [facility] NM ROOM 2 MH Nuc Med [facility] 02/26/2022 9:30 AM Kostas Bustamante MD [facility] NEURO [facility] Your Inpatient Doctor: Khalif Carcamo MD Your Primary Care Provider: LEISA Munguia [phone] For questions regarding this document or issues relating to this hospitalization on the Medical Service, please contact your inpatient physician through the [facility] Policy Change Clerk . Issues after hours and on weekends will be handled by the Hospitalist staff on-call. General Instructions None Future Appointments and Orders Future Appointments and Orders Future Appointments Provider Department Dept Phone 12/19/2021 2:00 PM [facility] INFUSION, ROOM Hematology Oncology at [facility] Arrive at: [facility] door at end of hallway [phone] 12/20/2021 8:45 AM ACCESS ROOM Hematology and Oncology at [facility] Arrive at: [facility] [phone] 12/20/2021 9:30 AM Hayley Palmer APRN; Miroslava Pelayo APRN Hematology and Oncology at [facility] Arrive at: [place] [phone] 12/20/2021 11:00 AM LEB INFUSION THERAPY Hematology and Oncology at [facility] Arrive at: [place] [phone] 12/23/2021 9:45 AM ACCESS ROOM [facility] [facility] Arrive at: [place] [facility] [phone] 12/23/2021 10:45 AM Hayley Palmer APRN; Miroslava Pelayo APRN; Parviz Modi MD Hematology and Oncology at [facility] Arrive at: [place] [facility] [phone] 12/23/2021 12:00 PM LEB INFUSION THERAPY Hematology and Oncology at [facility] Arrive at: [place] [facility] [phone] 12/24/2021 9:[address] Hematology and Oncology at [facility] Arrive at: [place] [facility] [phone] This is a placeholder only and the time may not be accurate. Do not come into the clinic for this appointment. 12/26/2021 10:30 AM Daniel Jimneez MD; Neno Arora MD Cardiology at [facility] Arrive at: [place] [facility] [phone] 12/26/2021 2:00 PM STJ INFUSION, ROOM Hematology Oncology at [facility] Arrive at: [facility] door at end of hallway [phone] 12/30/2021 9:45 AM ACCESS ROOM Hematology and Oncology at [facility] Arrive at: [place] [facility] [phone] 12/30/2021 10:45 AM Hayley Palmer APRN; Miroslava Pelayo APRN; Parviz Modi MD Hematology and Oncology at [facility] Arrive at: [place] [facility] [phone] 12/30/2021 12:00 PM LEB INFUSION THERAPY Hematology and Oncology at [facility] Arrive at: [place] [facility] [phone] 01/02/2022 2:00 PM STJ INFUSION, ROOM Hematology Oncology at [facility] Arrive at: [facility] door at end of hallway [phone] 01/06/2022 9:00 AM [facility] Nuclear Medicine at [facility] Arrive at: 3 INTERVENTIONAL RADIOLOGY [phone] Please do not eat or drink anything for at least 3 hours prior to your appointment. Also, Do not consume any caffeine in any form from food, beverages or medciation for 12 hours prior to exam. This includes: decaffeinated coffee and beverages, chocolate in any form, over the counter medications containing caffeine, ex: Exedrin Migraine etc. 01/06/2022 9:30 AM [facility] ROOM 2 Nuclear Medicine at [facility] Arrive at: 3Z INTERVENTIONAL RADIOLOGY [phone] Please do not eat or drink anything for at least 3 hours prior to your appointment. Also, Do not consume any caffeine in any form from food, beverages or medciation for 12 hours prior to exam. This includes: decaffeinated coffee and beverages, chocolate in any form, over the counter medications containing caffeine, ex: Exedrin Migraine etc. 01/06/2022 10:15 AM NUCLEAR STRESS Non-Invasive Cardiology Lab [facility] Arrive at: [place] [facility] 4A [phone] 01/06/2022 10:20 AM [facility] STRESS Nuclear Medicine at [facility] Arrive at: 3Z INTERVENTIONAL RADIOLOGY [phone] Please do not eat or drink anything for at least 3 hours prior to your appointment. Also, Do not consume any caffeine in any form from food, beverages or medciation for 12 hours prior to exam. This includes: decaffeinated coffee and beverages, chocolate in any form, over the counter medications containing caffeine, ex: Exedrin Migraine etc. 01/06/2022 10:35 AM [facility] ROOM 2 Nuclear Medicine at [facility] Arrive at: 3Z INTERVENTIONAL RADIOLOGY [phone] 02/26/2022 9:30 AM Kostas Bustamante MD Neurology at [facility] Arrive at: [place] [facility] [phone] Future Orders Complete By Expires Referral to Home Health [REF34 Custom] As directed Process Instructions: If no progress note charted, please enter Clinical details in comments. Scheduling Instructions: Comments: Please evaluate Herber Iverson Jr. for admission to Home Health. [address] [place] [address] (home) Date of : 1960 Outpatient Person to contact: Patient Patient is aware of referral: yes Referring Provider Call-back Physician to follow (the person listed here will be responsible for signing ongoing orders): PCP Requested Start of Care Date: Within 2-3 days Special Instructions: PT/OT for strength and mobility training. Will also need monitoring for dehydration, vital checks and monitoring of overall clinical status. I attest that I or another qualified licensed provider saw Herber Iverson JrNabil 90 days prior to or 30 days post admission and this face to face encounter meets the necessary Home Health requirements. The face to face encounter occurred on 12/17/21. Questions: Disciplines Requested: Physical Therapy Nursing Occupational Therapy Provider Contact Information: LEISA Munguia [address] / [place] [address] Discharge References/Attachments: Discharge References/Attachments None documented in this encounter Discharge Instructions Patient InstructionsSchDeng ramos MD - 12/17/2021 12:12 PM EDT Instructions on Discharge to Home Why you were hospitalized - You were hospitalized for ongoing dehydration and weight loss over the last month in the setting of loss of appetite and decreased taste. You also were noted to have a kidney injury due to the dehydration. While you in the hospital you were continued on fluids and we started you on an appetite stimulate. We also continued to monitor your kidney function which improved throughout your stay and we replaced electrolytes including magnesium which was intermittently low. We also had you see a physical therapist who recommended ongoing physical therapy at home. We will have you be seen on Thursday12/20/21 for fluids, labs and a office visit. Call your doctor or seek medical attention if you develop the following - fevers, chills, night sweats, chest pain, racing heart, lightheadedness, shortness of breath, abdominal pain, nausea/vomiting, bloody or black stools, greatly increasing or decreasing ostomy output, pain when you urinate, blood in your urine or new rashes or skin changes, Activity level - no restrictions. Continue working with PT Diet - no change in previous diet Driving - as before hospitalization Shower/Bath - permitted Wound Care - none Changes in Your Medications: New Medications: Dronabinol- please take one 5 mg capsule twice a day for appetite stimulation (can take one hours prior to lunch and dinner). Medication dose changes: Fluconazole- Please take one 200 mg tablet once a day for fungal prophylaxis Stop these medications: Gabapentin Budesonide Bactrim Follow-up: The 12/19/21 appointment at [facility] may be canceled if a spot opens up at the infusion suite at [facility] Future Appointments Date Time Provider Department Center 12/19/2021 2:00 PM STJ INFUSION, ROOM ST Hem Inf [facility] 12/20/2021 8:45 AM ACCESS ROOM [facility] INF [address] [place] [address] 12/20/2021 9:30 AM Miroslava Pelayo APRN [facility] HEM ONC [facility] 12/23/2021 9:45 AM ACCESS ROOM [facility] INF [address] [place] [address] 12/23/2021 10:45 AM Parviz Modi MD [facility] HEM ONC [facility] 12/23/2021 12:00 PM LEB INFUSION THERAPY [facility] INF [address] [place] [address] 12/24/2021 9:[address] [facility] HEM ONC [facility] 12/26/2021 10:30 AM Neno Arora MD [facility] CARD [address] [place] [address] 12/26/2021 2:00 PM STJ INFUSION, ROOM ST Hem Inf [facility] 12/30/2021 9:45 AM ACCESS ROOM [facility] INF [address] [place] [address] 12/30/2021 10:45 AM Parviz Modi MD [facility] HEM ONC [facility] 12/30/2021 12:00 PM LEB INFUSION THERAPY [facility] INF [address] [place] [address] 01/02/2022 2:00 PM STJ INFUSION, ROOM ST Hem Inf [facility] 01/06/2022 9:00 AM [facility] NM THU MH Nuc Med [facility] 01/06/2022 9:30 AM [facility] NM ROOM 2 MH Nuc Med [facility] 01/06/2022 10:15 AM NUCLEAR STRESS MH NI Card [facility] 01/06/2022 10:20 AM [facility] NM STRESS MH Nuc Med [facility] 01/06/2022 10:35 AM [facility] NM ROOM 2 MH Nuc Med [facility] 02/26/2022 9:30 AM Kostas Bustamante MD [facility] NEURO [facility] Your Inpatient Doctor: Khalif Carcamo MD Your Primary Care Provider: LEISA Munguia [phone] For questions regarding this document or issues relating to this hospitalization on the Medical Service, please contact your inpatient physician through the [facility] Policy Change Clerk . Issues after hours and on weekends will be handled by the Hospitalist staff on-call. documented in this encounter Medications at Time [...] 30 minutes prior to access. Ostomy Supplies [facility] Dispense 2 boxes ( 20 each 022 10/box) of [employer] Barrier rings #[id number] per month. Ostomy Supplies Dispense 1 bottle of 28.3 g 5 08/20/2021 Powder Adapt stoma powder #7906 every other month. Ostomy Supplies Misc Dispense 2 boxes 20 each 11 2 (10/box) of Sensura Flako Soft Convex One-piece Pouch #[id number] per month. Ostomy Supplies Misc Dispense 2 boxes 40 each 2 (20/box) of Brava Elastic Barrier strips #[id number] per month. Ostomy Supplies [facility] Dispense 1 box 50 each 08/20/2021 (50/box) of a generic no-sting skin barrier wipe per month. nystatin (Mycostatin) Take 5 mLs by mouth 4 100 mL 0 10/202112/22/2021 100,000 unit/mL times daily for 5 Suspension days. dronabinoL (Marinol) Take 1 capsule by 28 capsule 0 12/18/19 22 12/20/2021 5 mg Capsule mouth 2 times daily. 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 Ambulated with PT, with speed around unit with walker. Up to chair x1, then ambulated back to bed. Tremors continue, able to empty his own ostomy, utilize urinal and take pills. EncouragedJohn to eat small snacks and take sips of water throughout the day. GF supportive at bedside. AVS reviewed with Chai and Herber for discharge, no further questions. Discharge summary faxed to [facility]. [facility] de-accessed without any issues, site stable. Action List Encourage PO intake, high protein/calorie foods Encourage independence with ADLs Nystatin for thrush Discharge Plan: Wheeled to East entrance by staff. Discharged to home with girlfriend. Home with PT/OT Roderick Nick, PT - 12/17/2021 11:17 AM EDT Physical Therapy Evaluation Patient profile: Herber Iverson Jr. is a 61 y.o. right handed male admitted on 12/13/2021. 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 S/p 10/22/21 SCT and issues with nausea, rigors, and tachycardia post procedure. Patient has also had issues with STACIE, heartburn, nausea, high ostomy output, and heme + stool. Admitted 10/15/21 to 11/18/21 for planned admission for MUD HSCT, and had an ischemic stroke on 11/10/21 and also issues with BC with VRE during that admission. He returned home with his supportive partner (who has been unable to return to work due to patient needing care) he has been using a rolling walker since he returned home, and has had tremors for ~ 1 month that seem to be related to tacrolimus, MDs report likely tacrolimus tremors. Pt has also had FTT at home, with weight loss, decreased intake, and STACIE likely due to dehydration and thrush. He presented to infusion and was admitted to [facility] for management. He has had issues with HTN, tremors, flat affect, decreased appetite, and has started marinol for appetite stimulation. PT asked to see patient today to make d/c recommendations. Patient with the following active problems: Past Medical History: Diagnosis Date ??? AML (acute myeloblastic leukemia) 04/2021 ??? BPH (benign prostatic hyperplasia) ??? GERD (gastroesophageal reflux disease) ??? Paroxysmal atrial fibrillation ??? 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 Active Non-Hospital Problems Diagnosis ??? Hypomagnesemia ??? STACIE (acute kidney injury) ??? Dehydration ??? Paroxysmal atrial fibrillation ??? GERD (gastroesophageal reflux disease) ??? BPH (benign prostatic hyperplasia) ??? AML (acute myeloblastic leukemia) ??? Attention to ileostomy ??? Clostridium difficile colitis ??? Acute leukemia Past Surgical History: Procedure Laterality Date ??? ACHILLES TENDON SURGERY ??? IR LINE OR TUBE REMOVAL IN RECOVERY ROOM 11/05/2021 IR Line or Tube Removal in Recovery Room 11/05/2021 Kelli Diaz PA [facility] INTERVENTIONL RAD ??? IR MEDIPORT PLACEMENT 10/04/2021 IR Mediport Placement 10/04/2021 Kelli Diaz PA [facility] INTERVENTIONL RAD ??? IR TUNNELED CENTRAL VENOUS ACCESS NON-DIALYSIS 10/15/2021 IR Tunneled Central Venous Access Non-Dialysis 10/15/2021 Kelli Diaz PA [facility] INTERVENTIONL RAD ? ? PRO DIAGNOSTIC BONE MARROW BIOPSIES & ASPIRATIONS Right 09/12/2021 ([facility] MSURG) BONE MARROW BIOPSY AND ASPIRATION; DIAGNOSTIC performed by Parviz Modi MD [facility] OSC ? ? PRO DIAGNOSTIC BONE MARROW BIOPSIES & ASPIRATIONS N/A 10/07/2021 ([facility] MSURG) BONE MARROW BIOPSY AND ASPIRATION; DIAGNOSTIC performed by Parviz Modi MD [facility] ??? PRO EXPLORATORY OF ABDOMEN Midline 05/26/2021 @EXPLORATORY LAPAROTOMY, WITH/WITHOUT BIOPSY(S) (WRVU 12.54) performed by Mark Hernandes MD [facility] MAIN OR ??? PRO ILEOSTOMY/JEJUNOSTOMY, NONTUBE N/A 05/28/2021 @ILEOSTOMY OR JEJUNOSTOMY, NON TUBE (WRVU 17.59) performed by Lety Walter MD at [facility] MAIN OR ??? PRO REOPEN RECENT ABD EXPLORATORY N/A 05/28/2021 @EXPLORATORY LAPAROTOMY, REOPENING OF RECENT (WRVU 17.63) performed by Lety Walter MD at [facility] MAIN OR ??? TONSILLECTOMY AND ADENOIDECTOMY ??? XR FLUORO GUIDED LUMBAR PUNCTURE N/A 07/12/2021 XR Fluoro Guided Lumbar Puncture 07/12/2021 Frances Green MD [facility] RAD XRAY ??? XR FLUORO GUIDED LUMBAR PUNCTURE FOR IT CHEMOTHERAPY N/A 07/16/2021 XR Fluoro Guided Lumbar Puncture For IT Chemotherapy 07/16/2021 Nas Patino MD [facility] RAD XRAY ??? XR FLUORO GUIDED LUMBAR PUNCTURE FOR IT CHEMOTHERAPY N/A 07/19/2021 XR Fluoro Guided Lumbar Puncture For IT Chemotherapy 07/19/2021 Shae Alford MD [facility] RAD XRAY ??? XR FLUORO GUIDED LUMBAR PUNCTURE FOR IT CHEMOTHERAPY N/A 07/25/2021 XR Fluoro Guided Lumbar Puncture For IT Chemotherapy 07/25/2021 Nas Patino MD [facility] RAD XRAY ??? XR FLUORO GUIDED LUMBAR PUNCTURE FOR IT CHEMOTHERAPY N/A 07/29/2021 XR Fluoro Guided Lumbar Puncture For IT Chemotherapy 07/29/2021 [facility] RAD XRAY ??? XR FLUORO GUIDED LUMBAR PUNCTURE FOR IT CHEMOTHERAPY N/A 08/05/2021 XR Fluoro Guided Lumbar Puncture For IT Chemotherapy 08/05/2021 Nas Patino MD [facility] RAD XRAY ??? XR FLUORO GUIDED LUMBAR PUNCTURE FOR IT CHEMOTHERAPY N/A 08/01/2021 XR Fluoro Guided Lumbar Puncture For IT Chemotherapy 08/01/2021 Yolette Solano APRN [facility] RAD XRAY ??? XR FLUORO GUIDED LUMBAR PUNCTURE FOR IT CHEMOTHERAPY N/A 07/22/2021 XR Fluoro Guided Lumbar Puncture For IT Chemotherapy 07/22/2021 [facility] RAD XRAY ??? XR FLUORO GUIDED LUMBAR PUNCTURE FOR IT CHEMOTHERAPY N/A 08/12/2021 XR Fluoro Guided Lumbar Puncture For IT Chemotherapy 08/12/2021 Jona Lowry MD [facility] RAD XRAY ??? XR FLUORO GUIDED LUMBAR PUNCTURE FOR IT CHEMOTHERAPY N/A 08/26/2021 XR Fluoro Guided Lumbar Puncture For IT Chemotherapy 08/26/2021 Yolette Solano, HEYDI [facility] RAD XRAY ??? XR FLUORO GUIDED LUMBAR PUNCTURE FOR IT CHEMOTHERAPY N/A 09/05/2021 XR Fluoro Guided Lumbar Puncture For IT Chemotherapy 09/05/2021 Yolette Solaon, PHYSICAL METALLURGIST [facility] RAD XRAY ??? XR FLUORO GUIDED LUMBAR PUNCTURE FOR IT CHEMOTHERAPY N/A 09/09/2021 XR Fluoro Guided Lumbar Puncture For IT Chemotherapy 09/09/2021 Yolette Solano, PHYSICAL METALLURGIST [facility] RAD XRAY ??? 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 It is a 2 level home, but he stays on one level, laundry is in the basement. They have 2 cats, and friends that can check in when Chai returns to work. Bathroom Set-up: walk in shower with built in seat Stairs: 3 steps with a door or counter to hold onto. Baseline Mobility: Prior to October walked without a walker, has not been driving since Apr due to double vision, independent with ADLs, enjoyed TV, Football and puttering around the house. 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 Patient emptied his own ostomy, partner helps change ostomy. Since Return home in November- has used a rolling walker, and partner helps with ostomy care and all activities, and provides supervision with mobility. Sleeps in a regular bed. Equipment at home: has a rolling walker, and built in shower seat. Fall history: none. ?? Precautions/Special Considerations: Neutropenic Precautions. Fall risk, decreased appetite and mood. Lines:right chest port, Right side ostomy. Activity Orders: up with assistance. Diet: neutropenic diet. Mobility and Positioning Recommendations: ?? Pt. to utilize rolling walker and contact guard for ambulation and transfers with nursing and partner. ?? Please encourage up to chair for meal times as able. ?? Pt encouraged to ambulate frequently with staff, getting into the bathroom for toileting and walking out in the [place] >/= 3 times daily as able. ?? Contact guard with stairs, and partner aware of his status. Subjective: ???Aiming for home,?? stated by patient and partner regarding d/c plan and option of rehab if needed. I feel okay, stated by patient. Objective: Pt seen for evaluation today. Pain: No report of pain today. Vital Signs: Heart Rate: 77 BP: (!) 148/91 SpO2: 97 % O2 Device: None (Room air) Mental Status: flat affect, but cooperative and friendly, did smile at 2 jokes. Vision: glasses for reading. Skin: Right chest port, bruising on abdomen, ostomy right side abdomen. Musculoskeletal: ROM: AROM of BUEs and BLEs WFLs, but does have some hamstring tightness bilaterally. Strength: not tested, but moves extremities against gravity. Sensation: able to feel touch to feet, but reports some tingling and numbness at times. Bed Mobility: Supine to Sit: min assist from sidelying to left side of bed. Sit to Supine: supervision Transfers: Sit to Stand: supervision and cues for hand placement. Stand to Sit: supervision Bed to Chair: with walker with supervision Gait: Distance: 170 Device used: rolling walker Level of assist: Contact guard and cues to stand upright. Gait mechanics: step to progressed to step through gait after walker height was adjusted. Stairs: up and down 1 stairs with rail on left going up with contact guard Balance: Sitting Static: steady- some UE tremors noted. Standing Static: steady with walker Standing Dynamic / Gait: Contact guard with walker . Education: patient and partner have been educated on Bed mobility, Transfers, Assistive device/technique, Stairs, Exercise, Breathing exercises, Positioning, Safety , Gait , Activity pacing/Energy conservation, Role of therapy, Discharge planning and that if things do not work at home there is the option of rehab. and verbalize understanding. Patient status, treatment, and mobility recommendations discussed with nursing. Ther-ex: Reviewed AROM and deep breathing. Assessment: Herber Iverson Jr. was seen today for physical therapy evaluation. Patient presenting witha flat affect, but friendly with PT, he is known to this PT from last admission, he had much less motivation today and more of a flat affect then when this PT last worked with him last admission. He isgenerally deconditioned and a needs a walker and supervision for safety with all mobility, and contact guard with stairs. His partner is very supportive, but has been unable to return to work. They would like to return home with more home services in place, and are agreeable to home PT, RN, and OT services. Recommend supervision and use of walker with all mobility at this time, and contact with stairs, and Partner and patient aware of his status and comfortable to d/c to home with supports in place.Pt is expected to d/c later today with home services setup and family support. Team updated on pt's status. Discharge Recommendations: Based on the current findings, Anticipated Discharge Disposition (PT): home with home health, home with supervision (home with / supervision of family and home PT, OT, and RN.) when medically ready for hospital discharge. Consult Recommendations: home PT, OT, and RN recommended Equipment needs: Anticipated Equipment Needs at Discharge (PT): None (has what he needs) Plan: Therapy Frequency (PT): evaluation only for therapy including 2017 PT Evaluation Code Rationale: ?? Diagnosis & [...] Unstable/Unpredictable x ?? Clinical decision making of moderate complexity based on pt's functional performance as outlined in this evaluation. Time IN / OUT: 1038 to 1117 Total Minutes, Physical Therapy: 39 Billing Code: josé miguel NICK, PT Pager: [phone] Physical Therapy Inpatient Rehabilitation Department Khalif Carcamo MD - 12/17/2021 7:51 AM EDT Hematology Inpatient Staff Addendum ?? I have reviewed the above housestaff note and have participated in the direct care of this patient. I have discussed the case in detail with the team, reviewed all data and was directly involved in formulation of the patients clinical plan. 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 ?? Oral thrush is improving; no dysphagia. Oral intake remains poor from anorexia; Herber agreed for brief trial of marinol - so started at higher dose of 5mg bid on 12/14. Flat affect. But, does not want any meds to improve the mood. ?? # Anorexia , Poor oral intake, failure to thrive at home.- I doubt this is GVHD. 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 2ry to hypovolemia - slowly improving; - monitoring closely. Has good urine out put so far. 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 # ID Ppx - Received Pentamidine on 12/13 -Acyclovir 800mg BID - [id number] daily (renally adjusted) - EBV + at 100 IU/ml; rpt in a week to monitor; # hx of??paroxysmal Afib - on flecainide, metoprolol. 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 - On oral vanc 125mg bid and imodium 2mg bid. Will check with ID if he should continue C. diff ppx ?? I reviewed d/c plans with the pt And his girlfriend in detail including issues to monitor. Active issues that need to be addressed when he arrives on Thursday: Re-check Tacro level DOse adjust meds, pending his creat (improving) Re-check EBV PCR Determine if marinol is helping - doesn't seem to be I recommend re-checking chimerism since last checked 11/22/21 Rec'd pentamadine on 12/13/21 - needs again in one mth WE stopped budesonide since I Do not believe this is GVHD May need IV mag on Thu to supplement his po mag Time: > 30 mins with the majority spent in coordination of d/c planning/ care Pranav Carcamo MD Staff ==== Radha Davis RN - 12/17/2021 5:55 AM EDT Patient Summary Reason for admission: FTT, STACIE likely 2/2 dehydration, thrush Relevant PMH: 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 Has difficulty completing ADLs with BUE tremor, but is able to with assistance and encouragement. No complaints this shift. Slept well in between care. NS infusing at 100 ml/hr. Mg 0.54, mag repletion started. Action List Encourage PO intake, high protein/calorie foods IVF Encourage independence with ADLs Continue nystatin for thrush Encourage PT/OT and up to chair/ambulation in hallway Mark Felder RN - 12/16/2021 6:31 PM EDT Patient Summary Reason for admission: Failure to thrive, STACIE likely 2/2 dehydration, thrush Relevant PMH: S/p MUD Allo HSCT (Day +55 12/16), paroxysmal afib, c. Diff colitis c/b toxic megacolon s/p bowel resection and colostomy, FLT3+ AML s/p 7+3 Significant 24 hour events: 5/2 AM: VSS. BUE tremors remain, pt unable to take pills independently. Pt up in chair intermittently throughout the day. SO Chai assisted with shower. Ostomy appliance changed per pt request. Tacro level 4.3, no changes made. Nystatin continued for patchy white tongue. Hospital day 3 covid swab sent. Resting between care. Action List Encouraged po intake, high protein/calorie foods, nutrition following IVF @ 100mL/hr Assist w/ ADL as needed- feed, ostomy etc. Encourage oral care - nystatin for thrush Encourage up to chair/ambulation in hallway PT/OT Neuro consult Jacqui Arnold, PT - 12/16/2021 6:28 PM EDT 12/16/21 [id number] Evaluation & Treatment Document Type contact Comment, Session Not Performed Worked with OT this AM, this therapist unable to return this afternoon. Will follow up tomorrow. Jacqui Arnold DPFaby Pager #[phone] - 12/16/2021 12:30 PM EDT Nutrition Progress Note Herber Iverson Jr.??is a 61 y.o.??male??with hx of??paroxysmal Afib,??c diff colitis c/b toxic megacolon s/p bowel resection and colostomy??in may 2021,??FLT3+ AML s/p CR w/ 7+3 + midostaurin c/b relapse disease with ASSEMBLER RADIO AND ELECTRICAL penetration with CR s/p IT chemo (cytarabine and methotrexate) and reinduction tx w ventoclax + gilteritinib now s/p MUD allogenic HSCT. Admitted for FTT and dehydration. Reason for intervention: Follow up Nutrition Recommendations: BMT diet If poor po intake continues, suggest considering nutrition support given malnutrition Encourage good PO intake of small, frequent meals. CIB - vanjonathan daily Monitor and encourage hydration. ?? Monitor weights and trend. Patient meets criteria for severe protein calorie malnutrition as outlined below. Outpatient follow-up with Aubrey Givens RD Active Orders Diet Neutropenic (BMT) diet Frequency: Effective Now Number of Occurrences: Until Specified Lab Results Component Value Date NA 140 12/16/2021 K 4.7 12/16/2021 CL 113 (H) 12/16/2021 CO2 16 (L) 12/16/2021 BUN 27 (H) 12/16/2021 CREATININE 1.75 (H) 12/16/2021 ESTGFR 41 (L) 12/16/2021 MAGNESIUM 0.71 12/16/2021 CALCIUM 9.1 12/16/2021 PHOS 3.3 12/16/2021 AST 16 12/16/2021 ALT 11 12/16/2021 ALKPHOS 197 (H) 12/16/2021 BILITOT 0.3 12/16/2021 BILIDIR 0.1 12/16/2021 TRIG 171 07/13/2021 HA1C 5.8 (H) 11/11/2021 [id number] 1,799 (H) 08/01/2021 SFOLATE 5.6 08/01/2021 IRON 144 05/06/2021 No results found for: POCGLU Skin Status: Shift Pressure Injury Prevention Occiput: No Injury Thoracic Spine: No Injury Sacral: No Injury Ischial - left: No Injury Ischial - right: No Injury Heel - left: No Injury Heel - right: No Injury Elbow - left: No Injury Elbow - right: No Injury Device Sites: O2 sat monitor, IV sites Other Sites: ostomy, mediport Relevant medications: Tacro, Protonix, loperamide, diflucan, fluconazol, acyclovir, marinol, nystatin, NS at 100ml/hr Last Bowel Movement: 12/16/21 Admit Weight: 91.4 kg Estimated body mass index is 29.51 kg/m?? as calculated from the following: Height as of this encounter: 176 cm (5' 9.29). Weight as of this encounter: 91.4 kg (201 lb 8 oz). [place] Body Weight: 73.5kg Usual Body Weight: Per pt, 250lbs in April and 230lbs post BMT in October. 8% wt loss x 1 month - clinically significant Wt Readings from Last 10 Encounters: 12/13/21 91.4 kg (201 lb 8 oz) [...] 11/18/21 99.3 kg (218 lb 14.7 oz) Patient Vitals for the past 168 hrs: Weight 12/13/21 1642 91.4 kg (201 lb 8 oz) Assessment: Estimated needs: Calories: 8971-0220 (30-35 kcal/kg IBW) Protein:74 grams (1 g/kg IBW) - given renal status Nutrition Focused Physical Exam (NFPE): Performed on 12/14. Subcutaneous fat loss at Orbital region: None present Upper arm region (triceps/biceps): Mild Thoracic and lumbar region (ribs, lower back and maxillary line): None present - pt weak and sore Lean muscle loss to [place] region (temporalis muscle): Mild Clavicle bone region (pectoralis major): None present Dorsal hand (interosseous muscle): Mild Shoulder (deltoid): Not assessed Scapular bone region (latissimus dorsi, trapezius muscles): Not assessed Thigh region (quadriceps muscle): None present Posterior calf region (gastrocnemius muscle): Mild Fluid accumulation: Not assessed Nutrition intake and intake history/Interview: Herber continues to report poor appetite, marinol started on 12/14, although somewhat improved today. He reported he had a yogurt and water for breakfast today. He is drinking the CIB shakes, although reported BID is too much, requested CIB vanilla daily. Hedeclined additional snacks at this time. Continue to encourage small, frequent meals and caloricallydense foods. Ileostomy output low, although po intake low and receiving imodium. 12/14: Photo Tube Assembler met with patient at bedside today. Herber endorses poor appetite due to lack of taste since his bone marrow transplant in October. He reports forcing himself to eat. Consequently, he has noticed a 20# wt loss since discharge in early November. He feels weak and continues with tremors and findsit increasingly difficult to force himself to eat. Per his home diet recall of a typical day (1 egg for breakfast + 1 slice toast, no lunch and 1/2 cheese burger for dinner), Herber has been meeting only~ 25% of estimated calorie needs. He tells me his girlfriend has to coax him to eat at meals and, even when she does, he has only been able to eat >50-30% of his usual intake for the past month. Photo Tube Assembler encourage pt to eat small frequent meals with calorie-dense foods in setting of minimal appetite.Reviewed calorie dense foods and offered snacks and ONS. Pt refused ONS and snacks but expressed interest in receiving milkshakes on trays and ice cream as afternoon snack. Protein-calorie Malnutrition: < or equal to 50% of estimated energy requirement for > or equalto 5 days and >5% weight loss in 1 month is consistent with severe protein-calorie malnutrition in the setting of acute illness or injury related to chronic AML diagnosis and treatment. (RAFA Barnes J Parenteral Enteral Nutr. 2012 December; 36(3): 273-83) Nutrition to continue to follow up while inpatient Thank you, Claudia Claros RD Pager #:[phone] Khalif Carcamo MD - 12/16/2021 10:03 AM EDT Hematology Inpatient Staff Addendum ?? I have reviewed the above housestaff note and have participated in the direct care of this patient. I have discussed the case in detail with the team, reviewed all data and was directly involved in formulation of the patients clinical plan. 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 ?? Oral thrush is improving; no dysphagia. Oral intake remains poor from anorexia; Herber agreed for brief trial of marinol - so started at higher dose of 5mg bid on 12/14. Flat affect. But, does not want any meds to improve the mood. ?? # Anorexia , Poor oral intake, failure to thrive at home - Nutrition consulted - -On dronabinol 5mg bid - I doubt this is GVHD. 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 2ry to hypovolemia - slowly improving; - monitoring closely. Has good urine out put so far. 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 # ID Ppx - Received Pentamidine on 12/13 -Acyclovir 800mg BID - [id number] daily (renally adjusted) - EBV + at 100 IU/ml; rpt in a week to monitor; # hx of??paroxysmal Afib - on flecainide, metoprolol. 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 - On oral vanc 125mg bid and imodium 2mg bid. Will check with ID if he should continue C. diff ppx ?? 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 Past Medical History: Diagnosis Date ??? AML [...] in Recovery Room 11/05/2021 Kelli Diaz PA [facility] INTERVENTIONL RAD ??? IR MEDIPORT PLACEMENT 10/04/2021 IR Mediport Placement 10/04/2021 Kelli Diaz PA [facility] INTERVENTIONL RAD ??? IR TUNNELED CENTRAL VENOUS ACCESS NON-DIALYSIS 10/15/2021 IR Tunneled Central Venous Access Non-Dialysis 10/15/2021 Kelli Diaz PA [facility] INTERVENTIONL RAD ? ? PRO DIAGNOSTIC BONE MARROW BIOPSIES & ASPIRATIONS Right 09/12/2021 [facility] [place] BONE MARROW BIOPSY AND ASPIRATION; DIAGNOSTIC performed by Parviz Modi MD [facility] ? ? PRO DIAGNOSTIC BONE MARROW BIOPSIES & ASPIRATIONS N/A 10/07/2021 ([facility]) BONE MARROW BIOPSY AND ASPIRATION; DIAGNOSTIC performed by Parviz Modi MD [facility] ??? PRO EXPLORATORY OF ABDOMEN Midline 05/26/2021 @EXPLORATORY LAPAROTOMY, WITH/WITHOUT BIOPSY(S) (WRVU 12.54) performed by Mark Hernandes MD [facility] MAIN OR ??? PRO ILEOSTOMY/JEJUNOSTOMY, NONTUBE N/A 05/28/2021 @ILEOSTOMY OR JEJUNOSTOMY, NON TUBE (WRVU 17.59) performed by Lety Walter MD at [facility] MAIN OR ??? PRO REOPEN RECENT ABD EXPLORATORY N/A 05/28/2021 @EXPLORATORY LAPAROTOMY, REOPENING OF RECENT (WRVU 17.63) performed by Lety Walter MD at [facility] MAIN OR ??? TONSILLECTOMY AND ADENOIDECTOMY ??? XR FLUORO GUIDED LUMBAR PUNCTURE N/A 07/12/2021 XR Fluoro Guided Lumbar Puncture 07/12/2021 Frances Green MD [facility] RAD XRAY ??? XR FLUORO GUIDED LUMBAR PUNCTURE FOR IT CHEMOTHERAPY N/A 07/16/2021 XR Fluoro Guided Lumbar Puncture For IT Chemotherapy 07/16/2021 Nas Patino MD [facility] RAD XRAY ??? XR FLUORO GUIDED LUMBAR PUNCTURE FOR IT CHEMOTHERAPY N/A 07/19/2021 XR Fluoro Guided Lumbar Puncture For IT Chemotherapy 07/19/2021 Shae Alford MD [facility] RAD XRAY ??? XR FLUORO GUIDED LUMBAR PUNCTURE FOR IT CHEMOTHERAPY N/A 07/25/2021 XR Fluoro Guided Lumbar Puncture For IT Chemotherapy 07/25/2021 Nas Patino MD [facility] RAD XRAY ??? XR FLUORO GUIDED LUMBAR PUNCTURE FOR IT CHEMOTHERAPY N/A 07/29/2021 XR Fluoro Guided Lumbar Puncture For IT Chemotherapy 07/29/2021 [facility] RAD XRAY ??? XR FLUORO GUIDED LUMBAR PUNCTURE FOR IT CHEMOTHERAPY N/A 08/05/2021 XR Fluoro Guided Lumbar Puncture For IT Chemotherapy 08/05/2021 Nas Patino MD [facility] RAD XRAY ??? XR FLUORO GUIDED LUMBAR PUNCTURE FOR IT CHEMOTHERAPY N/A 08/01/2021 XR Fluoro Guided Lumbar Puncture For IT Chemotherapy 08/01/2021 Yolette Solano, HEYDI [facility] RAD XRAY ??? XR FLUORO GUIDED LUMBAR PUNCTURE FOR IT CHEMOTHERAPY N/A 07/22/2021 XR Fluoro Guided Lumbar Puncture For IT Chemotherapy 07/22/2021 [facility] RAD XRAY ??? XR FLUORO GUIDED LUMBAR PUNCTURE FOR IT CHEMOTHERAPY N/A 08/12/2021 XR Fluoro Guided Lumbar Puncture For IT Chemotherapy 08/12/2021 Jona Lowry MD [facility] RAD XRAY ??? XR FLUORO GUIDED LUMBAR PUNCTURE FOR IT CHEMOTHERAPY N/A 08/26/2021 XR Fluoro Guided Lumbar Puncture For IT Chemotherapy 08/26/2021 Yolette Solano APRN [facility] RAD XRAY ??? XR FLUORO GUIDED LUMBAR PUNCTURE FOR IT CHEMOTHERAPY N/A 09/05/2021 XR Fluoro Guided Lumbar Puncture For IT Chemotherapy 09/05/2021 Yolette Solano, HEYDI [facility] RAD XRAY ??? XR FLUORO GUIDED LUMBAR PUNCTURE FOR IT CHEMOTHERAPY N/A 09/09/2021 XR Fluoro Guided Lumbar Puncture For IT Chemotherapy 09/09/2021 Yolette Solano, HEYDI [facility] RAD XRAY ??? XR FLUORO GUIDED LUMBAR PUNCTURE FOR IT CHEMOTHERAPY N/A 09/27/2021 XR Fluoro Guided Lumbar Puncture For IT Chemotherapy 09/27/2021 Yolette Solano, HEYDI [facility] RAD XRAY Social History: Home set up: Pt lives with his SO in a 1 level home with 3 NINFA and a FOS to the basement; does not have to go into the basement. Bathroom has a walk-in shower with a built-in bench seat. PLOF: Pt receives assist for bathing and dressing from his SO, typically d/t time constraints with frequent MD appointments. Pt has been using a FWW for ambulation x ~ 1 month and was furniture walkingprior to that. SO usually works outside the home but has been out on family leave. DME: FWW Falls: pt denies falls Precautions/Special Considerations: at risk to fall, up with assist, neutropenic precautions, neutropenic diet, colostomy, UE tremors, sensory deficits in B LE, Subjective: I want to wait until Chrissy gets here so she can help me shower. Re: ADLs Objective: Seen today for OT evaluation. Pain: 0/10 Vitals: o HR: 82 bpm o SpO2: 97% on RA o BP: 135/95 mmHg Cognitive Status/Behavior: ?? Behavior / Mood: alert, cooperative and flat affect ?? Alert and oriented to: person, place, time and situation ?? Follows commands: multi step and 100% of the time ?? Attention: WFL ?? Safety awareness: WFL Vision & Perception: WNL/WFL pt reports diplopia has resolved and vision is at baseline. Corrective lenses for reading Communication/Hearing: WFL Musculoskeletal: Hand dominance: right Strength: WFL ROM: grossly WFL Coordination: impaired in BUE d/t tremors Sensation: tingling in B feet Activities of Daily Living: Self-feeding: per RN, assist needed to self-feed applesauce with medication this morning. Pt states he has some difficulty at baseline and does not use AE. Educated pt on compensatory strategy of stabilizing elbow/forearm on table during [id number] movements to improve stability and minimize spillage; pt verbalized understanding. Grooming: independently brushed teeth and washed face in sitting at bedside table. Dressing: total assist to don slipper socks Bathing: pt deferred d/t wanting to wait for SO to assist Toileting: NA Functional Mobility: Supine to sit: supervision Sit to stand: supervision from bed to FWW Ambulation: supervision around bed to chair on opposite side of room with FWW; assist needed for IV line/pole Stand to sit: supervision Balance: Static sitting: good Dynamic sitting: good Static standing balance: good Dynamic standing balance: good with UE support Education: Patient has been educated on Role of occupational therapy/rehabilitation, Transfers, ADL,Positioning, Safety, Functional Mobility, Activity pacing/Energy conservation, Balance, Recommendations and Discharge planning and pt verbalized understanding. Patient status, treatment, and mobility recommendations discussed with nursing. Assessment: Pt has been seen for occupational therapy evaluation. Herber Iverson Jr. presents with thefollowing performance skill deficits and client factors: decreased activity tolerance, decreased sitting/standing balance, hemodynamic instability, sensory deficits, decreased motor control, deconditioning, precautions/bracing, compromised mobility status and coping. These performance deficits have led to activity limitations and participation restrictions in the following areas of occupation: dressing, bathing, toileting, self-feeding, transfers/mobility, home management, work, leisure, driving, community mobility and social participation. However, despite the deficits listed above pt appears to be close to his baseline level of function. Pt was receptive to ongoing OT services while hospitalizedto improve his independence with self-care management but he did not indicate that he would like to continue to receive OT services at home when recommendation was provided. Anticipate that pt will return home with prior level of assistance/support once medically ready. Equipment needs at discharge: Equipment Needs Upon Discharge (OT): None Anticipated Discharge Disposition (OT): home with supervision, home with home health Staff Recommendations: ??? Bathroom for toileting ??? Reorient pt multiple times a day as needed ??? Ambulate 3x/day ??? Assist pt OOB to chair for meals ??? Promote wellbeing through engagement in leisure and relaxation activities ??? Encourage good sleep hygiene with appropriate sleep/wake cycles ??? Utilize upright chair position using bed features or transfer to recliner chair as appropriate ??? Encourage participation in ADL's and provide physical assist only as needed Other Recommendations: No other consults recommended at this time Goals: To be achieved by 12/29/21. 1. Pt will dress his LB with min A using compensatory strategies as needed 2. Pt will perform toileting tasks with mod I 3. Pt will wash his UB/LB in sitting/standing at sink with min A 4. Pt will be mod I with self-feeding using compensatory strategies as needed Plan: OT: Therapy Frequency (OT): 1-3 times/wk Planned OT interventions: Role of occupational therapy/rehabilitation, Transfers, Assistive device/technique, Adaptive equipment training, ADL, Exercise, Breathing exercises, Positioning, Safety, Precautions/Protocol, Functional Mobility, Activity pacing/Energy conservation, Home Program, Home Management, Balance, Recommendations, Family training and Discharge planning. Total Minutes, Occupational Therapy: 28 (Evaluation 8:54-9:22) 2017 OT Evaluation Code Rationale: ?? Diagnosis & Pertinent Co-Morbidities affecting Plan of Care: see PMHx ?? Occupational Profile & Client History: Brief Expanded Extensive x ?? Assessment of Occupational Performance: 1-3 performance deficits 3-5 performance deficits 5 + performance deficits x ?? Clinical Decision Making: Low Moderate High x Clinical decision making of moderate complexity using standardized patient assessment instrument andmeasurable assessment of functional outcome. Pager: [phone] Keri Babin OTR/L Occupational Therapy Rehabilitation Department Emilia Reyna RN - 12/16/2021 6:29 AM EDT Illness Severity [x] Stable [] Watcher [] Unstable Patient Summary Reason for admission: Failure to thrive, STACIE likely 2/2 dehydration, thrush Relevant PMH: S/p MUD Allo HSCT (Day +55 12/16), paroxysmal afib, c. Diff colitis c/b toxic megacolon s/p bowel resection and colostomy, FLT3+ AML s/p 7+3 Significant 24 hour events: 12/15 PM: Afebrile. Hypertensive to 160s/80s - MD aware. Denies pain, discomfort. K of 5.3 at beginning of shift - paged team, no interventions ordered. Meds given per OCT. NS infusing through port. Clave changed. Offered to help pt get up to chair before bed - decided to remain in bed. Sleeping in between nursing care. Chemo plan & supportive medication: S/p MUD Allo HSCT Baseline Weight: 91.4kg Neuro: WDL Neuro Checks: (See below) CV: WDL Telemetry: No Neurovasc: .WDL except, neurovascular assessment general BLE N/T, tremors BUE VTE Prophylaxis: anticoagulant therapy Heparin Pulmonary: .WDL except, breath sounds, rhythm/pattern PICHARDO O2 Device: None (Room air) GI: .WDL except, appearance/characteristics ostomy LBM: 12/16/21 Fingerstick order: No : WDL Musculoskeletal: .WDL except, mobility generalized weakness Pain/Location: 0 (12/15/212005) / Mobility Plan: Assistx1 w/ FWW Bed alarm sensitivity: low Skin: .WDL except pale Psych/Social: CHANDAN- Chai Action List Encouraged po intake, high protein/calorie foods, nutrition following IVF @ 100mL/hr Assist w/ ADL as needed- feed, ostomy etc. Encourage oral care - nystatin for thrush Encourage up to chair/ambulation in hallway PT/OT Neuro consult Tacro level 5/2 Discharge Plan: Home meds in Rx [] Belongings in safe [] Consults: nutrition PT [x] OT [x] SPEECH AND HEARING DIRECTOR [] Neuro consult Last Flu vaccine: Last Covid Test Result: 12/13/2021 Not Detected Pati Gilbert RN - 12/15/2021 6:35 PM EDT Illness Severity [x] Stable [] Watcher [] Unstable Patient Summary Reason for admission: Failure to thrive, STACIE likely 2/2 dehydration, thrush Relevant PMH: S/p MUD Allo HSCT (Day +54 12/15), paroxysmal afib, c. Diff colitis c/b toxic megacolon s/p bowel resection and colostomy, FLT3+ AML s/p 7+3 Significant 24 hour events: 12/15 AM: VSS. Afebrile. SR on tele- discontinued. BID BMP+ Mg drawn. IVF continues. Drank two milk shakes today. Up to chair x 1. Encouraged Herber to graze (a few bites of snack hourly). Report anorexia,food tastes bad. BLE tremors present, assisted with ADLs as needed (pill administration, utensil use and ostomy emptying) Tongue coated white, utilizing nystatin rinses. Chemo plan & supportive medication: S/p MUD Allo HSCT Baseline Weight: 91.4kg Neuro: WDL Neuro Checks: (See below) CV: WDL Telemetry: No Neurovasc: .WDL except, neurovascular assessment general BLE N/T VTE Prophylaxis: anticoagulant therapy Heparin Pulmonary: .WDL except PICHARDO O2 Device: None (Room air) GI: .WDL except, appearance/characteristics ostomy LBM: 12/15/21 Fingerstick order: No : WDL Musculoskeletal: .WDL except, mobility generalized weakness Pain/Location: 0 (12/15/21 0854) / Mobility Plan: Assistx1 w/ FWW Bed alarm sensitivity: low Skin: .WDL except, all pale Psych/Social: CHANDAN- Chai Action List Encouraged po intake, high protein/calorie foods, nutrition following IVF @ 100mL/hr Assist w/ ADL as needed- feed, ostomy etc. Encourage oral care - nystatin for thrush Encourage up to chair/ambulation in hallway Discharge Plan: Home meds in Rx [] Belongings in safe [] Consults: nutrition PT [x] OT [x] SPEECH AND HEARING DIRECTOR [] Neuro consult Last Flu vaccine: Last Covid Test Result: 12/13/2021 Not Detected Khloe Richardson MD - 12/15/2021 10:10 AM EDT Hematology Inpatient Staff Addendum ?? I have reviewed the above housestaff note and have participated in the direct care of this patient. I have discussed the case in detail with the team, reviewed all data and was directly involved in formulation of the patients clinical plan. I/O s: +1.5L Wt not checked. 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 ?? Oral thrush is improving; no dysphagia. Oral intake remains poor from anorexia; Herber agreed for brief trial of marinol - so started at higher dose of 5mg bid on 12/14. Flat affect. But, does not want any meds to improve the mood. ?? # Anorexia , Poor oral intake, failure to thrive at home - Nutrition consulted - -On dronabinol 5mg bid - If anorexia persists, consider EGD next week to evaluate for Reshma GVHD. 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 ? 2ry to combination of Tac plus generalized weakness. Checking with neuro # STACIE : ? 2ry to hypovolemia - slowly improving; - monitoring closely. Has good urine out put so far. 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 # ID Ppx - Received Pentamidine on 12/13 -Acyclovir 800mg BID - [id number] daily (renally adjusted) - EBV + at 100 IU/ml; rpt in a week to monitor; # hx of??paroxysmal Afib - on flecainide, metoprolol. # h/o C.diff colitis c/b toxic megacolon s/p bowel resection and colostomy??in may 2021 - - Good ostomy output. - On oral vanc 125mg bid and imodium 2mg bid. Will check with ID if he should continue C. diff ppx ?? Khloe Richardson MD Staff Physician Pager: [phone] 12/15/21 Deng Yost MD - 12/15/2021 7:21 AM EDT Images from the original note were not included. Inpatient Hematology/Oncology/SCT Progress Note Patient information: Name: Herber Iverson Jr. : 1960 PCP: LEISA Munguia PCP phone number: [phone] Date of Admission: 12/13/2021 ( Hospital Day 2 days ) Service: Hem/Onc Team B Responsible Attending:Urban Dos Santos MD ID: Herber Iverson . is a pleasant 61 y.o. with PMH of paroxysmal Afib,??c diff colitis c/b toxic megacolon s/p bowel resection and colostomy??in may 2021,?? 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 Currently admitted for failureto thrive, STACIE (likely 2/2 to dehydration) and thrush. 24 Hour Events: - NAOE Subjective: Patient reports feeling unchanged. Continues with decreased PO due to lack of appetite, denies dysphagia, sore throat, abdominal pain, or nausea. Reports tremor unchanged, no new headache, weakness, numbness. Otherwise no f/ch, no increased ostomy output or changes in consistency, no dyspnea, cough, dysuria or urinary changes, chest pain, palpitations. Vitals: Last value Range last 24 hrs Temperature Temp: 36.7 ??C (98.1 ??F) Temp: [36.4 ??C (97.5 ??F)-36.7 ??C (98.1 ??F)] Heart Rate Heart Rate: 71 Heart Rate: [71-81] Blood Pressure BP: (!) 132/93 BP: (125-144)/(73-93) Respiratory Rate Resp: 16 Resp: [16-18] SpO2 SpO2: 96 % SpO2: [95 %-99 %] Intake/Output Summary (Last 24 hours) at 12/15/2021 0721 Last data filed at 12/15/2021 0356 Gross per 24 hour Intake 3568 ml Output 2075 ml Net 1493 ml Patient Vitals for the past 168 hrs: Weight 12/13/21 1642 91.4 kg (201 lb 8 oz) Admit wt: 91.4 kg (standing) - Ostomy output in 24 hours: 500 cc Physical Exam: Gen: in bed looking fatigued, NAD HEENT: anicteric, EOMI intact. Mild thrush observed on tongue but no erythema of oropharynx. CV: RRR, no murmurs/rubs/gallops. No JVD appreciated Resp: CTAB, no crackles/wheezes/ronchi, normal work of breathing Abd: Stoma healthy appearing. Loose stool in ostomy without visible bleed.. normal bowel sounds, soft, non-tender to palpation, no rebound or guarding Ext: 2+ distal pulses, no pedal edema Neuro: no focal deficits noted, CN II-XII grossly intact, moves all extremities spontaneously, Strength 5/5 in upper lower extremities, sensation symmetric throughout. Psych: cooperative. Skin: Dry appearing skin on upper extremities. no rashes, lesions, or ulcerations noted. Medications: Scheduled Meds: ??? dronabinoL 5 mg Oral BID ??? acyclovir 800 mg Oral BID ??? aspirin 81 mg Oral Daily ??? budesonide EC 9 mg Oral QAM ??? flecainide 50 mg Oral BID ??? fluconazole 200 mg Oral Daily ??? loperamide 2 mg Oral BID ??? metoprolol tartrate 25 mg Oral Daily ??? nystatin 500,000 Units Oral 4 Times Daily ??? pantoprazole EC 40 mg Oral Daily ??? rosuvastatin 10 mg Oral Daily ??? vancomycin 125 mg Oral BID ??? sodium chloride 0.9 % (flush) 5 mL Intravenous BID ??? heparin (porcine) 5,000 Units Subcutaneous Q8H PIERCE ??? tacrolimus 0.6 mg Oral BID ??? tamsulosin 0.4 mg Oral Nightly Continuous Infusions: ??? sodium chloride 0.9% 100 mL/hr (12/14/21 193) PRN Meds:.magnesium Sulfate, sodium chloride 0.9 % (flush), lidocaine Labs: Recent Labs 12/15/21 0044 12/14/21 0402 12/13/21 0920 12/09/21 1050 WBC 5.6 5.2 8.4 10.7* NEUTROABS 4.04 4.08 6.39* 7.62* NRBCABS 0.000 0.000 0.000 0.030* HGB 8.3* 8.1* 9.6* 9.7* HCT 25.1* 25.2* 29.0* 29.5* PLATELET 49* 50* 73* 87* MCV 99.2* 99.6* 100.0* 98.7* Recent Labs 12/15/21 0044 12/14/21 1345 12/14/21 0402 NA 138 138 135 K 4.9 5.1* 5.5* CL 113* 112* 110* CO2 16* 17* 17* BUN 34* 38* 40* CREATININE 2.14* 2.27* 2.35* Recent Labs 12/15/21 0044 12/14/21 1345 12/14/21 0402 CALCIUM 8.8 8.7 8.9 MAGNESIUM 0.93 0.86 1.00 PHOS 3.5 4.1 5.0* Recent Labs 12/15/21 0044 12/14/21 0402 12/13/21 1800 12/13/21 0920 AST 15 16 -- 16 ALT 13 16 -- 15 ALKPHOS 209* 231* -- 287* BILITOT 0.3 0.3 -- 0.4 BILIDIR 0.1 0.1 -- -- LDH -- -- 154 -- No results for input(s): INR, PT, PTT in the last 72 hours. No results for input(s): TROPONINT, CK in the last 168 hours. Microbiology: Infectious workup 12/13: -BCx pending -UA negative for infection -resp panel negative -CMV, EBV pending Pertinent radiology/diagnostic studies: 12/13: CXR pending ASSESSMENT/PLAN: Herber Iverson Jr. is a pleasant 61 y.o. 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 Day +54 Patient remains mostly unchanged. He continues with minimal documented PO intake, continuing mIVF for dehydration. May be prerenal component of STACIE with dehydration, however given duration of elevated Cr likely component of ATN. He has hyperkalemia and hyperphosphatemia today, potentially in setting of STACIE vs tacrolimus. Will monitor in PM, if increased, will consider diuresis. Tele remains in NSR. Will CTM UOP closely while continuing mIVF and for improvement of renal function. Infectious workup sofar unrevealing, he has no systemic or localizing symptoms, still pending BCx, EBV, CMV, and CXR. 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 Working with nutrition and continuing to encourage PO intake. Will offer Marinol or other appetite stimulant if patient amenable and supplement nutrition, no TPN for now. He continues on ppx vancomycinsince prior admissions, will need clarification on duration. ?? Plan 12/15/2021 -continue mIVF, decreased rate to 100ml/hr -monitor UOP -nutrition following, encourage nutritional supplement and increased PO intake - Continue marinol -continue current tacrolimus for now, dose adjustment pending 12/16 level; -continue budesonide -continue ppx vancomycin for now, clarify duration - neurology consult for action tremor ?? # Failure to Thrive # Severe Protein Calorie Malnutrition # Oral Candiasis # EBV + # Oral Candiasis - Infectious workup -BCx EBV CMV- negative -UA negative, RVP negative on admission - CXR unconcerning for infection - continue mIVF, @ 100ml/hr -monitor UOP closely - Continue oral budesonide 9 mg AM - Continue home Nystatin swish and swallow QID for thrush - Consider scrub tongue - Nutrition Consulted - monitoring PO intake, encouraging PRN snacks - Offer Marinol 2.5 mg BID (lunch and dinner) - BID BMP and Mg - Daily CBC, CMP, Mg, Phos - PT/OT consult ?? # STACIE (b/l creatinine 0.9) # Hypomagnesmia #hyperkalemia #hyperphosphatemia - monitor UOP - BMP, Mg and phos daily - Keep K>4 and Mg >1 ?? # AML FLT3+ c/b relapse disease # MUD Allogenic Stem Cell Transplant - Day +54 today - Continue tacrolimus at 0.6 mg liquid -- 4/29 tacrolimus 5.0, if next on 12/16 increased consider increasing dose -- Pentamidine 12/13, Holding bactrim for STACIE - Continue Acyclovir 800 BID - Continue dose reduced fluconazole 200 mg daily ?? # Atrial Fibrillation - EKG on admission - Start Telemetry - home flecainide 50 mg BID -adjust dose if worsening CrCl - Continue home metoprolol tartrate 25 mg daily ?? # Hx of Ischemic Stroke - Continue aspirin 81 mg daily - dose reduce to rosuvastatin 10 mg daily ?? # Hx of C.diff Colitis c/b Toxic Megacolon s/p partial colectomy - home vancomycin 125 BID for C.diff PPx -clarify duration with ID - Home loperamide BID ?? # BPH - continue home tamsulosin 0.4 mg daily ?? # GERD - Continue pantoprazole 40 mg daily. DVT prophylaxis: SQH GI prophylaxis: PPI Diet: Neutropenic (BMT) diet Code status: Attempt Cardiopulmonary Resuscitation - Inpatient Deng Yost MD Internal Medicine PGY-2 Heme/Onc/BMT Pager #[phone] Martha Pelayo RN - 12/15/2021 5:43 AM EDT Patient Summary Reason for admission: Failure to thrive, STACIE likely 2/2 dehydration, thrush Relevant PMH: S/p MUD Allo HSCT (Day +55 12/15), paroxysmal afib, c. Diff colitis c/b toxic megacolon s/p bowel resection and colostomy, FLT3+ AML s/p 7+3 OUTCOME EVALUATION NOTE: OUTCOME SUMMARY: Afebrile, VSS on RA. Telemetry monitoring continued - NSR. Denies headache, SOB, N/V. BUE tremors present. IVF continued at 100 mL/hr. Resting between care. PLAN MOVING FORWARD: Encouraged po intake, high protein/calorie foods, nutrition following IVF @ 100mL/hr Telemetry Encourage oral care - nystatin for thrush Encourage up to chair/ambulation in hallway INDIVIDUALIZED FALL PREVENTION INTERVENTIONS: Patient-specific fall risk factors per assessment: [current deficits]: High fall risk d/t IV therapy, secondary diagnosis, generalized weakness, FWW use Assistance [level of assistance required for transfers and ambulation]: Assist x1 w/ FWW Supervision [direct monitoring required during toileting and ADLs]: Hands on Surveillance [continuous indirect monitoring]: Masimo, bed alarm, room near unit station, call lightwithin reach, purposeful hourly rounding Patient-specific fall prevention interventions for sensory deficits provided, if applicable: CPG GOAL OUTCOME EVALUATION: Denise Madera RN - 12/14/2021 3:18 PM EDT Illness Severity [x] Stable [] Watcher [] Unstable Patient Summary Reason for admission: Failure to thrive, dehydration Relevant PMH: S/p MUD Allo HSCT (Day +53 12/14), paroxysmal afib, c. Diff colitis c/b toxic megacolons/p bowel resection and colostomy, FLT3+ AML s/p 7+3 VSS, continues telemetry, no events this shift. IVF decreased to 100 cc/hr, Cre, potassium elevated,rechecked BMP this afternoon, Cre continues to be elevated. Decreased urine output, team is aware. Pt reports no appetite and has ongoing taste changes, encouraged food/drink, Marinol started for appetite stimulation. Magnesium replaced. Tongue coated, continues nystatin. Encouraged up to chair/ambulation in hallway. Action List Encourage po intake, high protein/calorie foods, nutrition following Marinol for appetite stimulation IVF @ 100mL/hr Telemetry Oral care, nystatin for thrush Encourage up to chair/ ambulation in hallway Khloe Richardson MD - 12/14/2021 9:58 AM EDT Hematology Inpatient Staff Addendum ?? I have reviewed the above housestaff note and have participated in the direct care of this patient. I have discussed the case in detail with the team, reviewed all data and was directly involved in formulation of the patients clinical plan. I/O s: +380ml ASSESSMENT/PLAN 61YOM with ??FLT3+ AML, s/p MUD allo SCT( D0: 3/8/22), complicated by ischemic stroke, VRE , mucositis and STACIE, now day +53, admitted on 12/13 for failure to thrive, STACIE (likely 2/2 to dehydration) and thrush. ?? Oral thrush is improving; no dysphagia. Oral intake remains poor from anorexia; Herber agreed to try marinol ?? # Anorexia , Poor oral intake, failure to thrive at home - Nutrition consulted - - will add dronabinol 5mg bid - If anorexia persists, consider EGD next week to evaluate for Reshma GVHD. 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 2ry to hypovolemia - monitoring closely. Has good urine out put so far. ?? # ID Ppx - Received Pentamidine on 12/13 -Acyclovir 800mg BID - [id number] daily (renally adjusted) - EBV + at 100 IU/ml; rpt in a week to monitor; # hx of??paroxysmal Afib - on flecainide. # h/o C.diff colitis c/b toxic megacolon s/p bowel resection and colostomy??in may 2021 - - Good ostomy output. - On oral vanc 125mg bid and imodium 2mg bid ?? 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 Admitted for FTT and dehydration. Reason for intervention: Malnutrition evaluation and AML, FTT and weight loss Nutrition Recommendations: Continue current diet order. Recommend least restrictive diet while appetite poor. Favor use of Phosbinders over Phos diet restriction. Encourage good PO intake of small, frequent meals. Snacks - prn. Ice cream and milkshakes ordered. Monitor and encourage hydration. ?? Monitor weights and trend. Patient meets criteria for severe protein calorie malnutrition as outlined below. Outpatient follow-up with Aubrey Givens RD I was able to discuss plan with provider Juan Beebe. Active Orders Diet Regular diet Frequency: Effective Now Number of Occurrences: Until Specified Lab Results Component Value Date NA 135 12/14/2021 K 5.5 (H) 12/14/2021 CL 110 (H) 12/14/2021 CO2 17 (L) 12/14/2021 BUN 40 (H) 12/14/2021 CREATININE 2.35 (H) 12/14/2021 ESTGFR 29 (L) 12/14/2021 MAGNESIUM 1.00 12/14/2021 CALCIUM 8.9 12/14/2021 PHOS 5.0 (H) 12/14/2021 AST 16 12/14/2021 ALT 16 12/14/2021 ALKPHOS 231 (H) 12/14/2021 BILITOT 0.3 12/14/2021 BILIDIR 0.1 12/14/2021 TRIG 171 07/13/2021 HA1C 5.8 (H) 11/11/2021 [id number] 1,799 (H) 08/01/2021 SFOLATE 5.6 08/01/2021 IRON 144 05/06/2021 No results found for: POCGLU Skin Status: Shift Pressure Injury Prevention Occiput: No Injury Thoracic Spine: No Injury Sacral: No Injury Ischial - left: No Injury Ischial - right: No Injury Heel - left: No Injury Heel - right: No Injury Elbow - left: No Injury Elbow - right: No Injury Device Sites: O2 sat monitor, IV sites Other Sites: ostomy Relevant medications: [place], Protonix, loperamide, diflucan, fluconazol Last Bowel Movement: 12/13/21 Admit Weight: 91.4 kg Estimated body mass index is 29.51 kg/m?? as calculated from the following: Height as of this encounter: 176 cm (5' 9.29). Weight as of this encounter: 91.4 kg (201 lb 8 oz). [place] Body Weight: 73.5kg Usual Body Weight: Per pt, 250lbs in April and 230lbs post BMT in October. 8% wt loss x 1 month - clinically significant Wt Readings from Last 10 Encounters: 12/13/21 91.4 kg (201 lb 8 oz) [...] 11/18/21 99.3 kg (218 lb 14.7 oz) Assessment: Estimated needs: Calories: 2535-3776 (30-35 kcal/kg IBW) Protein:74 grams (1 g/kg IBW)- given renal status Nutrition Focused Physical Exam (NFPE): Performed on 12/14. Subcutaneous fat loss at Orbital region: None present Upper arm region (triceps/biceps): Mild Thoracic and lumbar region (ribs, lower back and maxillary line): None present - pt weak and sore Lean muscle loss to [place] region (temporalis muscle): Mild Clavicle bone region (pectoralis major): None present Dorsal hand (interosseous muscle): Mild Shoulder (deltoid): Not assessed Scapular bone region (latissimus dorsi, trapezius muscles): Not assessed Thigh region (quadriceps muscle): None present Posterior calf region (gastrocnemius muscle): Mild Fluid accumulation: Not assessed Nutrition intake and intake history/Interview: Photo Tube Assembler met with patient at bedside today. Herber endorses poor appetite due to lack of taste since his bone marrow transplant in October. He reports forcinghimself to eat. Consequently, he has noticed a 20# wt loss since discharge in early November. He feels weak and continues with tremors and finds it increasingly difficult to force himself to eat. Per his home diet recall of a typical day (1 egg for breakfast + 1 slice toast, no lunch and 1/2 cheese burger for dinner), Herber has been meeting only ~ 25% of estimated calorie needs. He tells me his girlfriend has to coax him to eat at meals and, even when she does, he has only been able to eat >50-30% ofhis usual intake for the past month. Photo Tube Assembler encourage pt to eat small frequent meals with calorie-dense foods in setting of minimal appetite. Reviewed calorie dense foods and offered snacks and ONS. Ptrefused ONS and snacks but expressed interest in receiving milkshakes on trays and ice cream as afternoon snack. Protein-calorie Malnutrition: < or equal to 50% of estimated energy requirement for > or equalto 5 days and >5% weight loss in 1 month is consistent with severe protein-calorie malnutrition in the setting of acute illness or injury related to chronic AML diagnosis and treatment. (Alis et al, JPEN J Parenteral Enteral Nutr. 2012 December; 36(3): 273-83) Nutrition to continue to follow up while inpatient Montana Gonzalez RD Pager #:[phone] Juan Beebe MD - 12/14/2021 6:56 AM EDT Images from the original note were not included. Inpatient Hematology/Oncology/SCT Progress Note Patient information: Name: Herber Iverson Jr. : 1960 PCP: LEISA Munguia PCP phone number: [phone] Date of Admission: 12/13/2021 ( Hospital Day 1 day ) Service: Hem/Onc Team B Responsible Attending:Urban Dos Santos MD ID: Herber Iverson Jr. is a pleasant 61 y.o. with PMH of paroxysmal Afib,??c diff colitis c/b toxic megacolon s/p bowel resection and colostomy??in may 2021,?? 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 Currently admitted for failure to thrive, STACIE (likely 2/2 to dehydration) and thrush. 24 Hour Events: -admitted yesterday for FTT, STACIE, thrush -continued on IVF 150cc/hr -continued budesonide 9mg daily for ?GVHD -continued nystatin and fluconazole for thrush -infectious workup -BCx pending -UA negative for infection -resp panel negative -CMV, EBV pending -CXR pending -given pentamidine (bactrim held for STACIE) Subjective: Patient reports feeling unchanged. Continues with decreased PO due to lack of appetite, denies dysphagia, sore throat, abdominal pain, or nausea. Reports tremor unchanged, no new headache, weakness, numbness. Otherwise no f/ch, no increased ostomy output or changes in consistency, no dyspnea, cough, dysuria or urinary changes, chest pain, palpitations. Vitals: Afebrile, HR 70-80s, BP 100-130s/70-80s, RA Tele: SR in 70-100s, rare PACs Last value Range last 24 hrs Temperature Temp: 36.3 ??C (97.3 ??F) Temp: [36 ??C (96.8 ??F)-36.7 ??C (98.1 ??F)] Heart Rate Heart Rate: 77 Heart Rate: [77-82] Blood Pressure BP: 115/74 BP: (103-134)/(73-81) Respiratory Rate Resp: 18 Resp: [16-18] SpO2 SpO2: 96 % SpO2: [93 %-99 %] Intake/Output Summary (Last 24 hours) at 12/14/2021 0656 Last data filed at 12/14/2021 0508 Gross per 24 hour Intake 1531.8 ml Output 1150 ml Net 381.8 ml Patient Vitals for the past 168 hrs: Weight 12/13/21 1642 91.4 kg (201 lb 8 oz) Admit wt: 91.4 kg (standing) 12/14: I 1.5 (1.45IV), O 1.15 (UOP 0.95), net +0.381 -Last BM: Last Bowel Movement: 12/13/21 x 1 Physical Exam: Gen: in bed looking fatigued, NAD HEENT: anicteric, EOMI intact. Mild thrush observed on tongue but no erythema of oropharynx. CV: RRR, no murmurs/rubs/gallops. No JVD appreciated Resp: CTAB, no crackles/wheezes/ronchi, normal work of breathing Abd: Stoma healthy appearing. Loose stool in ostomy without visible bleed.. normal bowel sounds, soft, non-tender to palpation, no rebound or guarding Ext: 2+ distal pulses, no pedal edema Neuro: no focal deficits noted, CN II-XII grossly intact, moves all extremities spontaneously, Strength 5/5 in upper lower extremities, sensation symmetric throughout. Psych: cooperative. Skin: Dry appearing skin on upper extremities. no rashes, lesions, or ulcerations noted. Medications: Scheduled Meds: ??? acyclovir 800 mg Oral BID ??? aspirin 81 mg Oral Daily ??? budesonide EC 9 mg Oral QAM ??? flecainide 50 mg Oral BID ??? fluconazole 200 mg Oral Daily ??? loperamide 2 mg Oral BID ??? metoprolol tartrate 25 mg Oral Daily ??? nystatin 500,000 Units Oral 4 Times Daily ??? pantoprazole EC 40 mg Oral Daily ??? rosuvastatin 10 mg Oral Daily ??? vancomycin 125 mg Oral BID ??? sodium chloride 0.9 % (flush) 5 mL Intravenous BID ??? heparin (porcine) 5,000 Units Subcutaneous Q8H PIERCE ??? tacrolimus 0.6 mg Oral BID ??? tamsulosin 0.4 mg Oral Nightly Continuous Infusions: ??? sodium chloride 0.9% 150 mL/hr (12/13/21 8991) PRN Meds:.magnesium Sulfate, sodium chloride 0.9 % (flush), lidocaine Labs: Recent Labs 12/14/21 0402 12/13/21 0920 12/09/21 1050 WBC 5.2 8.4 10.7* NEUTROABS 4.08 6.39* 7.62* NRBCABS 0.000 0.000 0.030* HGB 8.1* 9.6* 9.7* HCT 25.2* 29.0* 29.5* PLATELET 50* 73* 87* MCV 99.6* 100.0* 98.7* Recent Labs 12/14/2140112/13/21179912/13/21 0920 NA 135 138 135 K 5.5* 4.9 5.0 CL 110* 109* 105 CO2 17* 17* 16* BUN 40* 43* 45* CREATININE 2.35* 2.47* 2.80* eGFR 29 < 27 < 23 Recent Labs 12/14/2140112/13/21179912/13/21 09 CALCIUM 8.9 9.1 9.9 MAGNESIUM 1.00 0.83 0.66* PHOS 5.0* -- -- Recent Labs 12/14/2140112/13/21179912/13/2120 12/09/21 1050 AST 16 -- 16 22 ALT 16 -- 15 22 ALKPHOS 231* -- 287* 453* BILITOT 0.3 -- 0.4 0.5 BILIDIR 0.1 -- -- -- LDH -- 154 -- -- No results for input(s): INR, PT, PTT in the last 72 hours. No results for input(s): TROPONINT, CK in the last 168 hours. Microbiology: Infectious workup 12/13: -BCx pending -UA negative for infection -resp panel negative -CMV, EBV pending Pertinent radiology/diagnostic studies: 12/13: CXR pending ASSESSMENT/PLAN: Herber Iverson Jr. is a pleasant 61 y.o. 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 Day +53 Patient remains mostly unchanged. He continues with minimal documented PO intake, continuing mIVF for dehydration. May be prerenal component of STACIE with dehydration, however given duration of elevated Cr likely component of ATN. He has hyperkalemia and hyperphosphatemia today, potentially in setting of STACIE vs tacrolimus. Will monitor in PM, if increased, will consider diuresis. Tele remains in NSR. Will CTM UOP closely while continuing mIVF and for improvement of renal function. Infectious workup sofar unrevealing, he has no systemic or localizing symptoms, still pending BCx, EBV, CMV, and CXR. 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 Working with nutrition and continuing to encourage PO intake. Will offer Marinol or other appetite stimulant if patient amenable and supplement nutrition, no TPN for now. He continues on ppx vancomycinsince prior admissions, will need clarification on duration. ?? Plan 12/14/2021 -continue mIVF, decreased rate to 100ml/hr -monitor UOP -repeat BMP in PM, monitor K and phosph -nutrition following, encourage nutritional supplement -offer Marinol -continue current tacrolimus for now, dose adjustment pending 5/2 level; consider changing to capsule -continue budesonide -continue ppx vancomycin for now, clarify duration ?? # Failure to Thrive # Severe Protein Calorie Malnutrition # Oral Candiasis # EBV + # Oral Candiasis - Infectious workup -BCx EBV CMV pending -UA negative, RVP negative on admission -pending CXR - continue mIVF, decreased to 100ml/hr -monitor UOP closely - Continue oral budesonide 9 mg AM - Continue home Nystatin swish and swallow QID for thrush - Consider scrub tongue - Nutrition Consulted - monitoring PO intake, encouraging PRN snacks - Offer Marinol 2.5 mg BID (lunch and dinner) - BID BMP and Mg - Daily CBC, CMP, Mg, Phos - PT/OT consult ?? # STACIE (b/l creatinine 0.9) # Hypomagnesmia #hyperkalemia #hyperphosphatemia - repeat K and phosph today, if increasing EKG and Lasix - monitor UOP - BMP, Mg and Phos daily - Keep K>4 and Mg >1 ?? # AML FLT3+ c/b relapse disease # MUD Allogenic Stem Cell Transplant - Day +53 today - Continue tacrolimus at 0.6 mg liquid -- 12/13 tacrolimus 5.0, if next on 12/16 increased consider increasing dose -- Pentamidine 12/13, Holding bactrim for STACIE - Continue Acyclovir 800 BID - Continue dose reduced fluconazole 200 mg daily ?? # Atrial Fibrillation - EKG on admission - Start Telemetry - home flecainide 50 mg BID -adjust dose if worsening CrCl - Continue home metoprolol tartrate 25 mg daily ?? # Hx of Ischemic Stroke - Continue aspirin 81 mg daily - dose reduce to rosuvastatin 10 mg daily ?? # Hx of C.diff Colitis c/b Toxic Megacolon s/p partial colectomy - home vancomycin 125 BID for C.diff PPx -clarify duration with ID - Home loperamide BID ?? # BPH - continue home tamsulosin 0.4 mg daily ?? # GERD - Continue pantoprazole 40 mg daily. DVT prophylaxis: SQH GI prophylaxis: PPI Diet: Regular diet Code status: Attempt Cardiopulmonary Resuscitation - Inpatient Faith Beebe MD Internal Medicine PGY-1 Heme/Onc/BMT Pager #[phone] Martha Pelayo RN - 12/14/2021 4:19 AM EDT Patient Summary Reason for admission: Failure to thrive, dehydration Relevant PMH: S/p MUD Allo HSCT (Day +53 12/14), paroxysmal afib, c. Diff colitis c/b toxic megacolons/p bowel resection and colostomy, FLT3+ AML s/p 7+3 OUTCOME EVALUATION NOTE: OUTCOME SUMMARY: Afebrile, VSS on RA. Telemetry monitoring continued - NSR. Denies headache, SOB, N/V. BUE tremors present. IVF increased to 150 mL/hr. Pentamidine administered per OCT. UA sent, blood cultures drawn, CXR completed. Airborne precautions discontinued, S+W precautions maintained. Resting between care. PLAN MOVING FORWARD: IVF @ 150mL/hr Telemetry Oral care CHIP? INDIVIDUALIZED FALL PREVENTION INTERVENTIONS: Patient-specific fall risk factors per assessment: [current deficits]: High fall risk d/t IV therapy, secondary diagnosis, generalized weakness, FWW use Assistance [level of assistance required for transfers and ambulation]: Assist x1 w/ FWW Supervision [direct monitoring required during toileting and ADLs]: Hands on Surveillance [continuous indirect monitoring]: Masimo, bed alarm, room near unit station, call lightwithin reach, purposeful hourly rounding Patient-specific fall prevention interventions for sensory deficits provided, if applicable: CPG GOAL OUTCOME EVALUATION: Caridad Mcdonald RN - 12/13/2021 6:54 PM EDT Patient Summary Reason for admission: Failure to thrive, dehydration Relevant PMH: S/p MUD Allo HSCT (Day 0 10/22/21), paroxysmal afib, c. Diff colitis c/b toxic megacolons/p bowel resection and colostomy, FLT3+ AML s/p 7+3 Significant 24 hour events: Arrived to 125 at 1640. VSS on RA. A&Ox4. IVF infusing at 125ml/hr. Respiratory panel sent. IV magnesium infusing. Placed on telemetry. EKG obtained. BUE tremors present. Thrush present on tongue. SO at bedside. Action List IVF UA needed Telemetry Oral care Emilia Harvey RN - 12/13/2021 11:57 AM EDT Patient Name: Herber Iverson Jr. Patient Age: 61 y.o. Birthdate: 1960 Admit date: (Not on file) Attending Physician: No att. providers found Herber Iverson Jr., 61 y.o. male with diagnosis of AML is here for infusion of magnesium and IV fluids. S: Pt. offers no complaints at this [...] clinic as scheduled. documented in this encounter H&P Notes Deng Yost MD - 12/13/2021 2:02 PM EDT Hematology & Oncology Admission H&P Patient info: Name: Herber Iverson Jr. 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 Modi's Note on 12/09/21: ?? ORIGINAL HISTORY OF PRESENT ILLNESS Herber Iverson Jr. dates the onset of his illness to earlier this summer. He has felt more tired than usual but attributed it to the humidity. About 3 weeks ago his fatigue was so bad that he went to a clinic in [facility]. He was evaluated for a UTI that was negative. 1 week ago today he saw his PCPwho ended up gatting a CBC showing abnormal counts and he was admitted to [facility]. Other than fatigue has had no fevers, chills or drenching sweats. Has lost a few lbs - <10. Appetite has been down recently. No bleeding or bruising. Was very actived when younger - played a lot of sports into his 40's. Admitted to [facility] 04/29/21 for leukocytosus. Discharged 04/30/21 04/30/21 CBC - 40.7/8.09/05 ANC - 3,210 ALC - 12.85 AMC - 13.660 LDH - 655 COVIC-19 - NEG ?? 05/06/21 admission for likely AML BM Bx - >95% cellular wit >90% myeloblasts CG - normal male karyotype NGS - + mutations in NPM1, FLT3 ??ITD and DNM3TA ?? 05/08/21 D1 7&3 + midostauren induction ?? Day +14 BM Bx - hypocellular, <5% blasts NPM1 gene Mutation analysis: Positive for NPM1 mutation. The quantitative level of mutated NPM1 transcript is 4273/10,000 ABL1 copies (42.73%.) ?? 05/26/21 Partial bowel resection for toxic megacolon and sepsis due to C. Diff infection. ?? 06/07/21 Recovery BM Bx - NC marrow with NTLM and 3.5% blasts c/w remission. ?? 07/04/21 BM Bx - hypercellular with 26% blasts --> relapsed AML ?? 07/12/21 LP - positive foir myeloblasts (53% of 117 WBC/uL) ?? 07/29/21 LP - FELY on LP/IT chemo #6 ?? 07/31/21 venetoclax plus gilteritinib reinduction started ?? LP - FELY - plan to change to weekly LP and IT chemo. ?? 08/05/21 LP - FELY ?? 08/06/21 BM Bx - 90% cellular with increased immature precursors suggestive of persistent disease but low blast count. N NPM1 gene Mutation analysis: Positive for NPM1 mutation. [place] [address]/10,000 ABL1 copies (135.80%.) ?? 08/08/21 Discharged after reinduction with gilteritinib and venetoclax and initial clearance of ASSEMBLER RADIO AND ELECTRICAL leukemia. ?? 08/12/21 LP - FELY ?? 08/26/21 LP - FELY ?? 09/05/20 LP - FELY ?? 09/09/20 LP - FELY ?? 09/12/20 BM Bx - Normocellular marrow (~50%) showing no increase in blasts, left-shifted erythroid hyperplasia and dysplasia, a relative granulocyte hypoplasia, and atypical megakaryocytes. NPM1 gene Mutation analysis - 1.95% ?? 10/15/21 Transplant summary Admit: 10/15/2021 Discharge: 11/18/2021 MUD transplant Conditioning: Fludarabine, Busulfan, Rabbit ATG, MTX post stem cell infusion Day 0 = 10/22/2021 Donor ABO: O neg Recipient ABO: O pos CMV: Both Negative Donor sex: Male Complications: Ischemic stroke, BC + VRE, severe mucositis, STACIE ?? Date NPM1 HSCT Day Source Total PMN [place] 05/21/21 43% ? 08/06/21 135% ? 09/12/21 1.95% ? 11/22/21 ?? +31 PB >95% na na 12/23/21 ?? +62 ? He presented to clinic on 12/09/21 (Day + 48; day 0 was on 10/22/21 for MUD stem cell transplant for relapsed AML with ASSEMBLER RADIO AND ELECTRICAL disease). At the appointment he was noted to be not doing well with poor PO intake. His creatinine at this time was up to 2.8 from a baseline of ~0.9. His weight was also noted to bedown 13 lbs at that time. There was no concern at that time for new infection. 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 In discussion with Herber and his partner Chai they describe that Herber has been having poor oral intake (both solids and liquids) since he came back from his transplant. He also has significant fatigue.He says the lack of intake is due to him having no tastebuds along with a lack of appetite but he denies difficulty swallowing, abdominal pain, significant nausea or new increased output from his ostomy. He also denies new headaches, fevers, chills, night sweats, chest pain, shortness of breath, palpitations, dizziness/lightheadedness, bloody/black stools, dysuria, hematuria, new skin rashes/infections. He has been taking all of his medications as prescribed. He denies recent sick contacts or travel. PMH Past Medical History: Diagnosis Date ??? AML (acute myeloblastic leukemia) 04/2021 ??? BPH (benign prostatic hyperplasia) ??? GERD (gastroesophageal reflux disease) ??? Paroxysmal atrial fibrillation ??? 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 PSH Past Surgical History: Procedure Laterality Date ??? ACHILLES TENDON SURGERY ??? IR LINE OR TUBE REMOVAL IN RECOVERY ROOM 11/05/2021 IR Line or Tube Removal in Recovery Room 11/05/2021 Kelli Diaz PA [facility] INTERVENTIONL RAD ??? IR MEDIPORT PLACEMENT 10/04/2021 IR Mediport Placement 10/04/2021 Kelli Diaz PA [facility] INTERVENTIONL RAD ??? IR TUNNELED CENTRAL VENOUS ACCESS NON-DIALYSIS 10/15/2021 IR Tunneled Central Venous Access Non-Dialysis 10/15/2021 Kelli Diaz PA [facility] INTERVENTIONL RAD ? ? PRO DIAGNOSTIC BONE MARROW BIOPSIES & ASPIRATIONS Right 09/12/2021 ([facility]) BONE MARROW BIOPSY AND ASPIRATION; DIAGNOSTIC performed by Parviz Modi MD [facility] ? ? PRO DIAGNOSTIC BONE MARROW BIOPSIES & ASPIRATIONS N/A 10/07/2021 ([facility]) BONE MARROW BIOPSY AND ASPIRATION; DIAGNOSTIC performed by Parviz Modi MD [facility] ??? PRO EXPLORATORY OF ABDOMEN Midline 05/26/2021 @EXPLORATORY LAPAROTOMY, WITH/WITHOUT BIOPSY(S) (WRVU 12.54) performed by Mark Hernandes MD [facility] MAIN OR ??? PRO ILEOSTOMY/JEJUNOSTOMY, NONTUBE N/A 05/28/2021 @ILEOSTOMY OR JEJUNOSTOMY, NON TUBE (WRVU 17.59) performed by Lety Walter MD at [facility] MAIN OR ??? PRO REOPEN RECENT ABD EXPLORATORY N/A 05/28/2021 @EXPLORATORY LAPAROTOMY, REOPENING OF RECENT (WRVU 17.63) performed by Lety Walter MD at [facility] MAIN OR ??? TONSILLECTOMY AND ADENOIDECTOMY ??? XR FLUORO GUIDED LUMBAR PUNCTURE N/A 07/12/2021 XR Fluoro Guided Lumbar Puncture 07/12/2021 Frances Green MD [facility] RAD XRAY ??? XR FLUORO GUIDED LUMBAR PUNCTURE FOR IT CHEMOTHERAPY N/A 07/16/2021 XR Fluoro Guided Lumbar Puncture For IT Chemotherapy 07/16/2021 Nas Patino MD [facility] RAD XRAY ??? XR FLUORO GUIDED LUMBAR PUNCTURE FOR IT CHEMOTHERAPY N/A 07/19/2021 XR Fluoro Guided Lumbar Puncture For IT Chemotherapy 07/19/2021 Shae Alford MD [facility] RAD XRAY ??? XR FLUORO GUIDED LUMBAR PUNCTURE FOR IT CHEMOTHERAPY N/A 07/25/2021 XR Fluoro Guided Lumbar Puncture For IT Chemotherapy 07/25/2021 Nas Patino MD [facility] RAD XRAY ??? XR FLUORO GUIDED LUMBAR PUNCTURE FOR IT CHEMOTHERAPY N/A 07/29/2021 XR Fluoro Guided Lumbar Puncture For IT Chemotherapy 07/29/2021 [facility] RAD XRAY ??? XR FLUORO GUIDED LUMBAR PUNCTURE FOR IT CHEMOTHERAPY N/A 08/05/2021 XR Fluoro Guided Lumbar Puncture For IT Chemotherapy 08/05/2021 Nas Patino MD [facility] RAD XRAY ??? XR FLUORO GUIDED LUMBAR PUNCTURE FOR IT CHEMOTHERAPY N/A 08/01/2021 XR Fluoro Guided Lumbar Puncture For IT Chemotherapy 08/01/2021 Yolette Solano APRN [facility] RAD XRAY ??? XR FLUORO GUIDED LUMBAR PUNCTURE FOR IT CHEMOTHERAPY N/A 07/22/2021 XR Fluoro Guided Lumbar Puncture For IT Chemotherapy 07/22/2021 [facility] RAD XRAY ??? XR FLUORO GUIDED LUMBAR PUNCTURE FOR IT CHEMOTHERAPY N/A 08/12/2021 XR Fluoro Guided Lumbar Puncture For IT Chemotherapy 08/12/2021 Jona Lowry MD [facility] RAD XRAY ??? XR FLUORO GUIDED LUMBAR PUNCTURE FOR IT CHEMOTHERAPY N/A 08/26/2021 XR Fluoro Guided Lumbar Puncture For IT Chemotherapy 08/26/2021 Yolette Solano APRN [facility] RAD XRAY ??? XR FLUORO GUIDED LUMBAR PUNCTURE FOR IT CHEMOTHERAPY N/A 09/05/2021 XR Fluoro Guided Lumbar Puncture For IT Chemotherapy 09/05/2021 Yolette Solano APRN [facility] RAD XRAY ??? XR FLUORO GUIDED LUMBAR PUNCTURE FOR IT CHEMOTHERAPY N/A 09/09/2021 XR Fluoro Guided Lumbar Puncture For IT Chemotherapy 09/09/2021 Yolette Solano APRN [facility] RAD XRAY ??? XR FLUORO GUIDED LUMBAR PUNCTURE FOR IT CHEMOTHERAPY N/A 09/27/2021 XR Fluoro Guided Lumbar Puncture For IT Chemotherapy 09/27/2021 Yolette Solano APRN [facility] RAD XRAY Allergies: Allergies Allergen Reactions ??? Other [Unclassified Drug] Other (See Comments) Artificial Sweetners-lightheadedness, dizziness ??? Bactoshield Chg [Chlorhexidine Gluconate] Itching and Rash CHG wipes reported he gets a rash and is itchy. Family History Family History Problem Relation Age of Onset ??? Lung Cancer Father Social History Social History Socioeconomic History ??? Marital status: Domestic Partner Spouse name: Chai Orlando ??? Number of children: Not on file ??? Years of education: Not on file ??? Highest education level: Not on file Occupational History ??? Occupation: employed at [employer] Tobacco Use ??? Smoking status: Never Smoker ??? Smokeless tobacco: Never Used Vaping Use ??? Vaping Use: Never used Substance and Sexual Activity ??? Alcohol use: Not Currently Comment: 5 drinks/year ??? Drug use: Never ??? Sexual activity: Not on file Other Topics Concern ??? 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 Lives with girlfriend in [place], [place]. . No biologic children. Social Determinants of Health Financial Resource Strain: Not on file Food Insecurity: Not on file Transportation Needs: Not on file Physical Activity: Not on file Housing Stability: Not on file Objective: Vitals Last value Range last 24 hrs Temperature Temp: 36.5 ??C (97.7 ??F) Temp: [36 ??C (96.8 ??F)-36.5 ??C (97.7 ??F)] Heart Rate Heart Rate: [82] Blood Pressure BP: 119/75 BP: (103-119)/(73-75) Art Line BP BP (Arterial Line): -- MAP (NBP): -- Respiratory Rate Resp: 18 Resp: [16-18] SpO2 SpO2: 99 % SpO2: [93 %-99 %] Oxygen Delivery Oxygen Therapy O2 Device: None (Room air) No intake or output data in the 24 hours ending 12/13/21 1716 Patient Vitals for the past 168 hrs: Weight 12/13/21 1642 91.4 kg (201 lb 8 oz) Admit wt: Physical Exam: Gen: in bed looking fatigued.A & O x 4 HEENT: anicteric, EOMI intact. Mild thrush observed on tongue but no erythema of oropharynx. CV: RRR, no murmurs/rubs/gallops. Neck veins flat. Resp: CTAB, no crackles/wheezes/ronchi, normal work of breathing Abd: Stoma healthy appearing. No blood in ostomy bag. normal bowel sounds, soft, non-tender to palpation, no rebound or guarding Ext: 2+ distal pulses, no pedal edema Neuro: no focal deficits noted, CN II-XII grossly intact, moves all extremities spontaneously Psych: cooperative. Skin: Dry appearing skin. no rashes, lesions, or ulcerations noted. Labs: Recent Labs 12/13/21 0920 12/09/21 1050 WBC 8.4 10.7* NEUTROABS 6.39* 7.62* NRBCABS 0.000 0.030* HGB 9.6* 9.7* HCT 29.0* 29.5* PLATELET 73* 87* MCV 100.0* 98.7* Recent Labs 12/13/21 0920 12/09/21 1050 NA 135 134* CL 105 101 CO2 16* 17* K 5.0 5.3* MAGNESIUM 0.66* 0.68* CALCIUM 9.9 9.6 BUN 45* 35* CREATININE 2.80* 2.85* LFTs Recent Labs 12/13/21 0920 12/09/21 1050 PROT 7.3 7.4 ALBUMIN 3.9 4.0 AST 16 22 ALT 15 22 ALKPHOS 287* 453* BILITOT 0.4 0.5 IgG level 12/09: 1326 CMV PCR 12/09/21- not detected EBV PCR 12/09/21- 100 Tacrolimus Level 12/13/21- 5.0 Microbiology: None Imaging: None Assessment & Plan: Herber Iverson Jr.??is a 61 y.o.??male??with hx of??paroxysmal Afib,??c diff colitis c/b toxic megacolon s/p bowel resection and colostomy??in may 2021,??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 His story is consistent with poor PO intake with an 18 pound weight loss over this past month secondary to lack of taste (likely worsened by current oral thrush) and decreased appetite following stem cell transplant without any significant changes over the last month. My suspicion for GVHD currently is quite low as his symptoms started before day +30 post engraftment and he does not have any current dysphagia, abdominal pain, nausea or diarrhea. We can also consider post-transplant lymphoproliferative disorder with EBV positivity to 100 on 12/09/21 with non-detection 1 month prior if EBV levels continue to rise along with a rising LDH and no improvement in symptoms with fluid resuscitation or new lymphadenopathy. If there is concern for PTLD further imaging looking for an area of lymphoproliferative growth would be warranted. We will admit the patient tonight for fluid and electrolyte replacement withthe rest of the plan described below: # Failure to Thrive # Protein Calorie Malnutrition # Oral Candiasis # EBV + # Oral Candiasis - Run IVF at 150 cc/hr overnight - Continue oral budesonide 9 mg AM - Continue home Nystatin swish and swallow QID for thrush - Consider scrub tongue - Consider Marinol 2.5 mg BID (lunch and dinner) over the weekend - LDH on admission - BID BMP and Mg - Daily CBC, CMP, Mg, Phos - Nutrition Consult - PT/OT consult - BC x 2, UA/UC, CXR, RVP, EBV and CMV PCR # STACIE (b/l creatinine 0.9) # Hypomagnesmia - Fluids as described above - BMP, Mg and Phos daily - Keep K>4 and Mg >1 # AML FLT3+ c/b relapse disease # MUD Allogenic Stem Cell Transplant - s/p tacrolimus level 5.0 today - Day +52 today - Continue dose adjusted tacrolimus at 0.5 mg - Holding bactrim for STACIE - Continue Acyclovir 800 BID - Continue dose reduced fluconazole 200 mg daily - Pentamidine 300 mg # Atrial Fibrillation - EKG on admission - Start Telemetry - home flecainide 50 mg BID - Continue home metoprolol tartrate 25 mg daily # Hx of Ischemic Stroke - Continue aspirin 81 mg daily - dose reduce to rosuvastatin 10 mg daily # Hx of C.diff Colitis c/b Toxic Megacolon s/p partial colectomy - home vancomycin 125 BID for C.diff PPx - Home loperamide BID # BPH - continue home tamsulosin 0.4 mg daily # GERD - Continue pantoprazole 40 mg daily # Maintenance Activity: Up with assistance Diet: Regular DVT PPx: sub q heparin GI PPx: on PPI Code Status: Full Code Deng Yost MD Internal Medicine, PGY-2 Heme-Onc A, #[id number] Associated attestation - Urban Dos Santos MD - 12/13/2021 8:31 PM EDT BMT/Hematology Inpatient Staff Shared Addendum I have reviewed the above housestaff note and have participated in the direct care of this patient. I have discussed the case in detail with the team, reviewed all data and was directly involved in formulation of the patients clinical plan. In brief Herber Iverson Jr. is a 61 y.o. 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 Currently admitted for failure to thrive, STACIE (likely 2/2 to dehydration) and thrush. Although Herber looks stable overall, he appears to be extremely dehydrated and fatigued. Plan: IVF at 150cc/hr for now Continue oral budesonide for ?GI GVHD at 9mg daily - Continue Nystating and fluconazole. - Will consider Marinol - Full infectious wup inluding Bcx, Ucx, Respiratory panel, CMV and EBV Infectious Ppx - Pentamidine today( holding bactrim for STACIE) -Acyclovir 800mg BID - [id number] daily Other interventions per admission H&P Urban Dos Santos MD Staff Physician Bone MarrowTransplant and Cellular Therapy documented in this encounter Miscellaneous Notes Care Management Discharge - Aruna Saunders RN - 12/17/2021 11:18 AM EDT CARE MANAGEMENT FINAL DISCHARGE NOTE Chart reviewed, care reviewed with primary team and at interdisciplinary rounds. Patient is medically ready for discharge to home. Needs for Transition of Care: Plan for discharge is: Home w/ Services Outpatient Agency/Support Group Needs: Homecare agency Home Health Services: Registered Nurse, Physical Therapy, Occupational Therapy Agency Referrals & Follow-up Care: [facility]. PHONE: [phone] FAX: [phone] Transportation: family or friend will provide Wheelchair van/Ambulance? No Functional status prior to admission: Assistive Equipment and Assistive Person Home Environment: Others in the home: significant other (SO Chrissy and 2 cats). Current Living Arrangements: home/apartment/condo. Accessibility Concerns:3STE, mainly on one level. Current Functional Ability: Assistive Equipment DME used at home: other (see comments) (will assess when patient available) DME Needed at Discharge: N/A Patient is insured through: Primary Insurance: [employer] Payor: [facility] / Plan: [facility] PPO / Product Type: *No Product type* / Secondary Insurance: N/A Prescription Coverage: Yes This plan was formulated with input from patient and team. All are in agreement with plan. Aruna Saunders RN, BSN, [facility] Germination Worker Pager [phone] Consult Note - Emerita Lam RN - 12/16/2021 5:02 PM EDT I met with pt this afternoon to assist with an ostomy pouch change and to drop off supplies. He is discouraged by the readmission and is hopeful to get home soon. His pouch was lifting up along the medial edge so he agreed to have me remove this. His stoma is red and viable and peristomal skin intact.He was wearing a drainable pouch today, but I only brought the high output, which he said was fine. I applied the [place] high output #[id number] with an Adapt ring. His output is thicker, so I'm not sure that he needs to use the high output pouch, but will be fine for now. He has the drainable pouches at home. Pt agreed to be an ostomy visitor and said it was okay to give his name/info out to another patientof ours. We will follow up with pt as an outpt and he knows to call if concerns. Initial Assessments - Aruna Saunders RN - 12/16/2021 1:17 PM EDT Office of Care Management Initial Assessment Aruna Saunders RN reviewed record and discussed patient with Care Team. Source of Information: Team, bedside nurse, medical record, and Chart Review Reason for Hospitalization: fatigue Covid Vaccination Status: (need to assess) Last COVID test: Lab Results Component Value Date COVID19 Not Detected 10/19/2021 [id number] Not Detected 10/15/2021 Past medical History: Past Medical History: Diagnosis [...] Who is your DPOA-HC?: Other (see comment) (Friend) Current Coping/Education/Information Needs: able to make needs known Current Functional Ability: Independent Functional Status Prior to Admission: Assistive Equipment and Assistive Person Prior ADLs & IADLs: Independent with all ADLs & IADLs Home Environment: Others in the home: significant other (ARSENIO Nielsen and 2 cats). Current Living Arrangements: home/apartment/condo. Accessibility Concerns:3STE, mainly on one level. Resource / Environmental Concerns: Resource/Environmental Concerns: none Current DME: other (see comments) (will assess when patient available) Home Address listed as: [address] [employer] [address] Social & Family Supports:All names listed below confirmed with patient as current and correct Extended Emergency Contact Information Primary Emergency Contact: CHRISSY ORLANDO Address: [address] [facility] [address] [facility] [address] [employer] [employer] [address] [facility] Mobile Relation: Life Partner Secondary Emergency Contact: LETY LOPEZ Address: [address] [place], [place] [id number] [place] [address] Mobile Relation: Friend Mother: Mary Springer Mobile Current Care Provided by: self Provides Primary Care For: no one Caregiver if needed: significant other Quality of Family relationships: helpful, involved, supportive Community Resources being provided currently: none Behavioral Health History: Denies per chart review Substance Use/Abuse listed: Social [...] Specific Information: n/a Health/Prescription Coverage: Primary Insurance: [employer] Payor: [employer] / Plan: [facility] PPO / Product Type: *No Product type* / Secondary Insurance: N/A Prescription Coverage: Yes Preferred Pharmacy: [id number] - [place], [place] - [address] AT SEC OF [facility] [address] [facility] [id number] [facility] - [place], [place] - [address] [facility] [address] [facility] - [place], [place] - [address] [facility] [address] [id number] - [place], [place] - [address] [facility] [address] [id number] - [place], [place] - [address] [facility] [address] [facility] [address] [facility] [address] [id number] [facility] [id number] - [place], [place] - [address] [facility] [address] [facility] [address] [place] [id number] [facility] - [place], [place] - [address] [facility] [address] [facility] [address] Status: Patient is a : No Primary Care Provider: LEISA Munguia [phone] Patient/Caregiver Goals of Treatment: return home Potential Needs for Transition of Care: none Agency Referrals: Not Applicable Transportation: no concerns Transportation Anticipated: family or friend will provide Concerns to be Addressed: no discharge needs identified Assessment: Patient is admitted to hematology/oncology service for FTT. Plan: No anticipated needs for discharge, will monitor A member of the Care Management team will continue to monitor progress, follow for continuity of care and assist with transition of care planning. Aruna Saunders RN, BSN, IRVING Germination Worker Pager [phone] Consult Note - Fadumo Barry MD - 12/16/2021 11:43 AM EDT Neurology Inpatient Consult Note - 12/16/2021 Admit date: 12/13/2021 Attending: Khalif Carcamo MD ID: 61 y/o M w/ pmhx FTL3+ AML s/p CR w/ daunorubicin+midostaurin c/b relapse with ASSEMBLER RADIO AND ELECTRICAL penetration s/p intrathecal chemo w/ cytarabine+methotrexate, reinduction w/ venetoclax+gliteritinib, now s/p allogeneic HSCT 10/22/2021 c/b ischemic stroke, VRE infxn, STACIE. Current admission for FTT in context of anor exia & STACIE (likely pre-renal). Neuro was consulted for evaluation of tremor x1mo. HPI: Roughly 2-3 weeks following HSCT in early October 2021 pt developed intermittent (roughly 7-10hz) tremor, worse with action but often present @rest, worse in BUE but sometimes minimally present in jaw and lower extremities, appeared approximately temporally correlated with initiation of tacrolimus (lastlvl 5.0 on 12/13 down from 8.3 on 11/25). Pt states he has never experienced tremors before & wifeat bedside corroborates this, adding that tremor appears to improve when pt relaxing in bed, appearsto worsen w/ stress. Of note pt had posterior frontal ischemic stroke during last hospitalization w/ possible residual deficit of delayed speech. 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 He otherwise denies neuro ROS. Hospital Medications: Current Facility-Administered Medications Medication Dose Route Frequency Provider Last Rate Last Admin ??? tacrolimus (Prograf) capsule 0.5 mg 0.5 mg Oral BID Deng Yost MD ??? sodium chloride 0.9% infusion 100 mL/hr Intravenous Continuous Deng Yost MD 100 mL/hr at 12/16/21 1006 100 mL/hr at 12/16/21 1006 ??? dronabinoL (Marinol) capsule 5 mg 5 mg Oral BID Juan Beebe MD 5 mg at 12/16/21 0846 ??? magnesium sulfate 2 g in sterile water 50 mL infusion 2 g Intravenous Daily PRN Deng Yost MD Stopped at 12/13/21 1344 ??? acyclovir (Zovirax) tablet 800 mg 800 mg Oral BID Deng Yost MD 800 mg at 12/16/21846 ??? aspirin chewable tablet 81 mg 81 mg Oral Daily Deng Yost MD 81 mg at 12/16/21846 ??? budesonide EC (Entocort EC) capsule 9 mg 9 mg Oral QAM Deng Yost MD 9 mg at 12/16/21 0633 ??? flecainide (Tambocor) tablet 50 mg 50 mg Oral BID Deng Yost MD 50 mg at 12/16/21846 ??? fluconazole (Diflucan) tablet 200 mg 200 mg Oral Daily Deng Yost MD 200 mg at 12/16/21846 ??? loperamide (Imodium A-D) capsule 2 mg 2 mg Oral BID Deng Yost MD 2 mg at 12/16/21846 ??? metoprolol tartrate (Lopressor) tablet 25 mg 25 mg Oral Daily Deng Yost MD 25 mg at 12/16/21845 ??? nystatin (Mycostatin) (100,000 units/mL) oral liquid 500,000 Units 500,000 Units Oral 4 Times Daily Deng Yost MD 500,000 Units at 12/16/21845 ??? pantoprazole EC (Protonix) tablet 40 mg 40 mg Oral Daily Deng Yost MD 40 mg at ??? rosuvastatin (Crestor) tablet 10 mg 10 mg Oral Daily Deng Yost MD 10 mg at 12/16/21846 ??? vancomycin (Vancocin) capsule 125 mg 125 mg Oral BID Deng Yost MD 125 mg at 12/16/21845 ??? sodium chloride 0.9 % (flush) (BD PosiFlush Normal Saline 0.9) flush 5 mL 5 mL Intravenous BID Deng Yost MD 5 mL at 12/16/21846 ??? sodium chloride 0.9 % (flush) (BD PosiFlush Normal Saline 0.9) flush 5-20 mL 5-20 mL IntravenousQ1 Min PRN Deng Yost MD ??? lidocaine (Xylocaine) 1% (10 mg/mL) injection 3 mg 0.3 mL Subcutaneous Once PRN Deng Yost MD ??? heparin (porcine) (5,000 units/1 mL) subcutaneous injection 5,000 Units 5,000 Units [id number] [facility] Deng Yost MD 5,000 Units at 12/16/21 0634 ??? tamsulosin (Flomax) capsule 0.4 mg 0.4 mg Oral Nightly Deng Yost MD 0.4 mg at 12/15/212006 Home Medications: No current facility-administered medications on file prior to encounter. Current Outpatient Medications on File Prior to Encounter Medication Sig Dispense Refill ??? magnesium oxide (Mag-Ox) 400 mg (241.3 mg magnesium) Tablet Take 1 tablet by mouth 3 times daily. 90 tablet 3 ??? acyclovir (ZOVIRAX) 200 mg Capsule Take 4 capsules by mouth 2 times daily. 240 capsule 3 ? ? budesonide EC (Entocort EC) 3 mg Capsule, Delayed & Ext.Release Take 3 capsules by mouth every morning. 90 capsule 3 ??? loperamide (Imodium A-D) 2 mg Capsule Take 1 capsule by mouth 3 times daily. 90 tablet 1 ??? nystatin (Mycostatin) 100,000 unit/mL Suspension Take 5 mLs by mouth 4 times daily for 7 days. 140 mL 3 ??? tacrolimus (Prograf) 0.5 mg Capsule Take 1 capsule by mouth 2 times daily. 60 capsule 3 ??? metoprolol tartrate (Lopressor) 25 mg Tablet Take 1 tablet by mouth daily. 30 tablet 5 ??? tamsulosin (Flomax) 0.4 mg Capsule Take 1 capsule by mouth daily. 90 tablet 0 ??? flecainide (TAMBOCOR) 50 mg Tablet Take 1 tablet by mouth 2 times daily. 60 tablet 3 ??? vancomycin (Vancocin) 125 mg Capsule Take 1 capsule by mouth 2 times daily. 60 capsule 5 ??? fluconazole (Diflucan) 200 mg Tablet Take 2 tablets by mouth daily for 30 days. 60 tablet 0 ??? pantoprazole EC (Protonix) 40 mg Tablet, [...] Misc Dispense 2 boxes (10/box) of Sensura [place] Soft Convex One-piece Pouch #[id number] month. 20 each 11 ??? Ostomy Supplies Misc Dispense 2 boxes (20/box) of Brava Elastic Barrier strips #[id number] per month. 40 each 11 ??? Ostomy Supplies Misc Dispense 1 box (50/box) of a generic no-sting skin barrier wipe per month. 50 each 11 ??? ondansetron (Zofran) 8 mg Tablet Take 1 tablet by mouth every 8 hours as needed for Nausea. 20 tablet 1 Past Medical History: Past Medical History: Diagnosis [...] in Recovery Room 11/05/2021 Kelli Diaz PA [facility] INTERVENTIONL RAD ??? IR MEDIPORT PLACEMENT 10/04/2021 IR Mediport Placement 10/04/2021 Kelli Diaz PA [facility] INTERVENTIONL RAD ??? IR TUNNELED CENTRAL VENOUS ACCESS NON-DIALYSIS 10/15/2021 IR Tunneled Central Venous Access Non-Dialysis 10/15/2021 Kelli Diaz PA [facility] INTERVENTIONL RAD ? ? PRO DIAGNOSTIC BONE MARROW BIOPSIES & ASPIRATIONS Right 09/12/2021 ([facility] BONE MARROW BIOPSY AND ASPIRATION; DIAGNOSTIC performed by Parviz Modi MD [facility] OSC ? ? PRO DIAGNOSTIC BONE MARROW BIOPSIES & ASPIRATIONS N/A 10/07/2021 ([facility] BONE MARROW BIOPSY AND ASPIRATION; DIAGNOSTIC performed by Parviz Modi MD [facility] OSC ??? PRO EXPLORATORY OF ABDOMEN Midline 05/26/2021 @EXPLORATORY LAPAROTOMY, WITH/WITHOUT BIOPSY(S) (WRVU 12.54) performed by Mark Hernandes MD [facility] MAIN OR ??? PRO ILEOSTOMY/JEJUNOSTOMY, NONTUBE N/A 05/28/2021 @ILEOSTOMY OR JEJUNOSTOMY, NON TUBE (WRVU 17.59) performed by Lety Walter MD at [facility] MAIN OR ??? PRO REOPEN RECENT ABD EXPLORATORY N/A 05/28/2021 @EXPLORATORY LAPAROTOMY, REOPENING OF RECENT (WRVU 17.63) performed by Lety Walter MD at [facility] MAIN OR ??? TONSILLECTOMY AND ADENOIDECTOMY ??? XR FLUORO GUIDED LUMBAR PUNCTURE N/A 07/12/2021 XR Fluoro Guided Lumbar Puncture 07/12/2021 Frances Green MD [facility] RAD XRAY ??? XR FLUORO GUIDED LUMBAR PUNCTURE FOR IT CHEMOTHERAPY N/A 07/16/2021 XR Fluoro Guided Lumbar Puncture For IT Chemotherapy 07/16/2021 Nas Patino MD [facility] RAD XRAY ??? XR FLUORO GUIDED LUMBAR PUNCTURE FOR IT CHEMOTHERAPY N/A 07/19/2021 XR Fluoro Guided Lumbar Puncture For IT Chemotherapy 07/19/2021 Shae Alford MD [facility] RAD XRAY ??? XR FLUORO GUIDED LUMBAR PUNCTURE FOR IT CHEMOTHERAPY N/A 07/25/2021 XR Fluoro Guided Lumbar Puncture For IT Chemotherapy 07/25/2021 Nas Patino MD [facility] RAD XRAY ??? XR FLUORO GUIDED LUMBAR PUNCTURE FOR IT CHEMOTHERAPY N/A 07/29/2021 XR Fluoro Guided Lumbar Puncture For IT Chemotherapy 07/29/2021 [facility] RAD XRAY ??? XR FLUORO GUIDED LUMBAR PUNCTURE FOR IT CHEMOTHERAPY N/A 08/05/2021 XR Fluoro Guided Lumbar Puncture For IT Chemotherapy 08/05/2021 Nas Patino MD [facility] RAD XRAY ??? XR FLUORO GUIDED LUMBAR PUNCTURE FOR IT CHEMOTHERAPY N/A 08/01/2021 XR Fluoro Guided Lumbar Puncture For IT Chemotherapy 08/01/2021 Yolette Solano, PHYSICAL METALLURGIST [facility] RAD XRAY ??? XR FLUORO GUIDED LUMBAR PUNCTURE FOR IT CHEMOTHERAPY N/A 07/22/2021 XR Fluoro Guided Lumbar Puncture For IT Chemotherapy 07/22/2021 [facility] RAD XRAY ??? XR FLUORO GUIDED LUMBAR PUNCTURE FOR IT CHEMOTHERAPY N/A 08/12/2021 XR Fluoro Guided Lumbar Puncture For IT Chemotherapy 08/12/2021 Jona Lowry MD [facility] RAD XRAY ??? XR FLUORO GUIDED LUMBAR PUNCTURE FOR IT CHEMOTHERAPY N/A 08/26/2021 XR Fluoro Guided Lumbar Puncture For IT Chemotherapy 08/26/2021 Yolette Solano, [facility] RAD XRAY ??? XR FLUORO GUIDED LUMBAR PUNCTURE FOR IT CHEMOTHERAPY N/A 09/05/2021 XR Fluoro Guided Lumbar Puncture For IT Chemotherapy 09/05/2021 Yolette Solano, [facility] RAD XRAY ??? XR FLUORO GUIDED LUMBAR PUNCTURE FOR IT CHEMOTHERAPY N/A 09/09/2021 XR Fluoro Guided Lumbar Puncture For IT Chemotherapy 09/09/2021 Yolette Solano, [facility] RAD XRAY ??? XR FLUORO GUIDED LUMBAR PUNCTURE FOR IT CHEMOTHERAPY N/A 09/27/2021 XR Fluoro Guided Lumbar Puncture For IT Chemotherapy 09/27/2021 Yolette Solano, [facility] RAD XRAY Allergies: Allergies Allergen Reactions ??? Other [Unclassified Drug] Other (See Comments) Artificial Sweetners-lightheadedness, dizziness ??? Bactoshield Chg [Chlorhexidine Gluconate] Itching and Rash CHG wipes reported he gets a rash and is itchy. Family history: Family History Problem Relation Age of Onset ??? Lung Cancer Father Social history: Social History Tobacco Use ??? Smoking status: Never Smoker ??? Smokeless tobacco: Never Used Vaping Use ??? Vaping Use: Never used Substance Use Topics ??? Alcohol use: Not Currently Comment: 5 drinks/year ??? Drug use: Never Lives with and 's mother, independent in ADLs/iADLs (sometimes needs assistance moving/lifting objects d/t tremulousness) Physical Exam: Temp: [36.5 ??C (97.7 ??F)-36.8 ??C (98.2 ??F)] Resp: [16-18] BP: (111-168)/(72-95) Vitals: Temp: [36.5 ??C (97.7 ??F)-36.8 ??C (98.2 ??F)] Heart Rate: -- Resp: [16-18] BP: (111-168)/(72-95) SpO2: [94 %-96 %] Heart Rate from SpO2: [72 bpm-86 bpm] Gen: Apparent stated age, awake, alert, NAD Neck: Supple, no meningismus, no carotid bruit, no occipital tenderness HEENT: MMM CV: S1, S2, RRR, no murmur apreciated Resp: Normal respiratory effort, CTAB Abd: +normoactive bowel sounds, soft, nontender, nondistended, ostomy site nonedematous/noninflamed Ext: No edema. No bony deformity Skin: No suspicious rashes or lesions Neuro Exam: MS: Awake, alert, oriented to person, place, year, month however somewhat slow to respond 3/3 Immediate, 3/3 Delayed recall Able to state months of year backwards, mimic complex hand gestures No dysarthria, language fluent, cooperative with neuro exam CN: Pupils 4mm ERRL, EOMI, visual naranjo full to confrontation Facial sensation intact to light touch, temperature No facial asymmetry Hearing intact to voice Palate elevates symmetrically, tongue protrudes midline SCM and trap strength intact Motor: Normal bulk and tone. No pronator drift. Hand rolling intact. UE: 5/5 R, 5/5 L Arm abduction at shoulder 5/5 R, 5/5 L Elbow extension 5/5 R, 5/5 L Elbow flexion 5/5 R, 5/5 L Fire Pilot LE: 5/5 R, 5/5 L Hip flexion 5/5 R, 5/5 L Knee extension 5/5 R, 5/5 L Knee flexion 5/5 R, 5/5 L Foot dorsiflexion 5/5 R, 5/5 L Foot plantar flexion Sensation: Intact to light touch, temperature in BUE, diminished light touch in distal BUE R>L, impaired proprioception in BL great toes +low to moderate amplitude 9.4hz action tremor in BUE Reflexes: DTRs 2+ R, 2+ L Biceps 2+ R, 2+ L Brachioradialis 2+ R, 2+ L Triceps 2+ R, 2+ L Patellar 2+ R, 2+ L Achilles tendon Babinski - R down, L down Coordination: Finger to nose intact, no dysmetria Rapid alternating movements & finger tapping smooth and symmetric Heel-petty intact No tremor Gait: Deferred d/t Labs: Last 3 wbc, hgb, hct plt Recent Labs 12/16/21 0240 12/15/21 0044 12/14/21 0402 WBC 4.3 5.6 5.2 HGB 8.4* 8.3* 8.1* HCT 26.0* 25.1* 25.2* PLATELET 44* 49* 50* Last 3 Lytes Recent Labs 12/16/21 0240 12/15/21 1640 12/15/21 0044 NA 140 138 138 K 4.7 5.3* 4.9 CL 113* 113* 113* CO2 16* 16* 16* BUN 27* 30* 34* CREATININE 1.75* 1.89* 2.14* Last 3 LFTs Recent Labs 12/16/2123912/15/21 0044 12/14/21 0402 AST 16 15 16 ALT 11 13 16 ALKPHOS 197* 209* 231* BILITOT 0.3 0.3 0.3 BILIDIR 0.1 0.1 0.1 Last Ca, Mg, Phos Recent Labs 12/16/21 024 CALCIUM 9.1 PHOS 3.3 MAGNESIUM 0.71 Last 3 Coags No results for input(s): PT, INR, PTT in the last 168 hours. Diagnostic Tests and Imaging: Results for orders placed or performed during the hospital encounter of 12/13/21 XR Chest One View (Exam End: 12/13/2021 8:13 PM) Impression Subsegmental atelectasis at left base, with or without trace effusion. Thank you for letting us participate in the care of this patient. If you are a health care provider and have any questions regarding this report, please contact the number below. For patients who have questions please contact the health healthcare technician that requested your imaging first. Electronically signed by: Krista Olivia MD, [facility] ([phone]), at 12/14/2021 7:56 AM 11/10 MRI brain IMPRESSION 1. Punctate acute infarct in the posterolateral right frontal lobe subcortical white matter, without acute hemorrhage. 2. The hypodensity previously seen in the right occipital lobe reflected artifact on the preceding CT scan as there is no abnormality in this location on the current study. ?? 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 Current admission for FTT in context of anorexia & STACIE (likely pre-renal). Neuro was consulted for evaluation of tremor x1mo. Subacute onset ~10hz tremor temporally a/w tacrolimus initiation appears consistent w/ tacrolimus tremor, which per literature can be mitigated by switching to long-acting tacro to maximize time under the curve & minimize drug peaks/troughs which may be a/w worsened tremor. Alternatively consider switch to sirolimus. Would also consider cross-titrating from metop to propranolol which crosses the BBB and reduce sympathetic outflow for tremor mitigation. Recommendations: - consider transitioning to long-acting tacrolimus or sirolimus if possible - consider cross-titration from metoprolol to propranolol - would not recommend surgical intervention at this time unless pt requires chronic tacro tx - Neuro will sign off at this time; please reach out with further questions. [] Consult service will continue to follow patient. [x] Recommendations are above, please page [phone] if further consultation is required. Discharge Instructions: ??? Follow-up Plan: PCP only; outpatient neurology follow-up not required. ??? Additional studies (MRI, EEG, etc): none Patient discussed with Dr. Nas Reyna MD. Fadumo Barry MD Neurology consult p#[phone] Associated attestation - Nas Reyna MD - 12/18/2021 10:58 AM EDT Images from the original note were not included. Neurology Attending Note Nas Reyna MD PhD (pager [phone]) I have seen and examined Herber Iverson on 12/16 with resident Fadumo Barry MD, whose note contains ourhistory, exam, data/imaging review and assessment and recommendation. He has a 9-10 Hz upper extremity tremor bilaterally that is present throughout action without dysmetria, consistent with a kinetic tremor, typically described in tacrolimus and reported to be associated with peak serum levels, suggesting that extended release formulations may be less tremorigenic, if that could be considered in this patient. It has been reported that sirolimus causes less tremor as well. Since he is only going to be on this for a few months, Mr. Iverson appeared to be willing to deal with the tremor. We also suggested weighted eating utensils. He has an in-law relative with tremor who has found those useful. Thank your for involving us in his care. documented in this encounter Plan of Treatment Upcoming Encounters Date Type Specialty Care Team Description 02/18/2022 Infusion Hematology and Oncology 02/21/2022 Infusion Hematology and Oncology 02/24/2022 Appointment Hematology and Oncology 02/24/2022 Office Visit Hematology and Oncology Parviz Modi MD [facility] [address] HEMATOLOGY/[place] [address] Miroslava Pelayo APRN [facility] HEMATOLOGY/[place] [address] 02/24/2022 Office Visit Wound Care 02/24/2022 Appointment Hematology and Oncology 02/26/2022 Office Visit Neurology Leni Bustamante MD [facility] NEUROLOGY DEPT. [place], [place] [address] (Wo rk) Scheduled Referrals Name Type Priority Associated Diagnoses Order S chedule Referral to Home Outpatient Referral Routine Failure to thrive in Ordered: Health adult 12/17/2021 documented as of this encounter Procedures Procedure Name Priority Date/Time Associated Comments Diagnosis CHIMERISM BLOOD REPORT Routine 12/17/2021 4:30 AM Results for this EDT procedure are i n the results section. .CHIMERISM BLOOD Routine 12/17/2021 4:30 AM Resul ts for this EDT procedure are i n the results section. HC CHIMERISM W/COMP TO Routine 12/17/2021 4:30 AM BASELINE W/O CELL EDT SELECTION HEMOGRAM Routine 12/17/2021 4:30 AM Results f or this EDT procedure are i n the results section. DIFFERENTIAL, Routine 12/17/2021 4:30 AM Results for this AUTOMATED EDT procedure are i n the results section. HC CBC,PLT & AUTO DIFF Routine 12/17/2021 4:30 AM EDT HC PHOSPHORUS, SERUM Routine 12/17/2021 4:30 AM R esults for this EDT procedure are i n the results section. HC MAGNESIUM, SERUM Routine 12/17/2021 4:30 AM Re sults for this EDT procedure are i n the results section. HEPATIC FUNCTION PANEL Routine 12/17/2021 4:30 AM Results for this EDT procedure are i n the results section. BASIC METABOLIC PANEL Routine 12/17/2021 4:30 AM Results for this (NON-FASTING) EDT procedure are in the results section. RAPID COVID-19 PCR Routine 12/16/2021 4:10 PM Res ults for this (MH/APD/NLH) EDT procedure are in the results section. HC FK-506 (TACROLIMUS) Routine 12/16/2021 8:30 AM Results for this EDT procedure are i n the results section. HEMOGRAM Routine 12/16/2021 2:40 AM Results f or this EDT procedure are i n the results section. DIFFERENTIAL, Routine 12/16/2021 2:40 AM Results for this AUTOMATED EDT procedure are i n the results section. HC CBC,PLT & AUTO DIFF Routine 12/16/2021 2:40 AM EDT HC PHOSPHORUS, SERUM Routine 12/16/2021 2:40 AM R esults for this EDT procedure are i n the results section. HC MAGNESIUM, SERUM Routine 12/16/2021 2:40 AM Re sults for this EDT procedure are i n the results section. HEPATIC FUNCTION PANEL Routine 12/16/2021 2:40 AM Results for this EDT procedure are i n the results section. BASIC METABOLIC PANEL Routine 12/16/2021 2:40 AM Results for this (NON-FASTING) EDT procedure are in the results section. HC MAGNESIUM, SERUM Routine 12/15/2021 4:40 PM Re sults for this EDT procedure are i n the results section. BASIC METABOLIC PANEL Routine 12/15/2021 4:40 PM Results for this (NON-FASTING) EDT procedure are in the results section. TYPE AND SCREEN Routine 12/15/2021 12:44 Results for this VALIDITY AM EDT procedure [...] i n the results section. DIFFERENTIAL, Routine 12/15/2021 12:44 Results fo r this AUTOMATED AM EDT procedure are i n the results section. HC CBC,PLT & AUTO DIFF Routine 12/15/2021 12:44 AM EDT HC PHOSPHORUS, SERUM Routine 12/15/2021 12:44 Res ults for this AM EDT procedure are i n the results section. HC MAGNESIUM, SERUM Routine 12/15/2021 12:44 Resu lts for this AM EDT procedure are i n the results section. HEPATIC FUNCTION PANEL Routine 12/15/2021 12:44 R esults for this AM EDT procedure are i n the results section. BASIC METABOLIC PANEL Routine 12/15/2021 12:44 Re sults for this (NON-FASTING) AM EDT procedure are in the results section. HC PHOSPHORUS, SERUM Routine 12/14/2021 1:45 PM R esults for this EDT procedure are i n the results section. HC MAGNESIUM, SERUM Routine 12/14/2021 1:45 PM Re sults for this EDT procedure are i n the results section. BASIC METABOLIC PANEL Routine 12/14/2021 1:45 PM Results for this (NON-FASTING) EDT procedure are in the results section. HEMOGRAM Routine 12/14/2021 4:02 AM Results f or this EDT procedure are i n the results section. DIFFERENTIAL, Routine 12/14/2021 4:02 AM Results for this AUTOMATED EDT procedure are i n the results section. HC CBC,PLT & AUTO DIFF Routine 12/14/2021 4:02 AM EDT HC PHOSPHORUS, SERUM Routine 12/14/2021 4:02 AM R esults for this EDT procedure are i n the results section. HC MAGNESIUM, SERUM Routine 12/14/2021 4:02 AM Re sults for this EDT procedure are i n the results section. HEPATIC FUNCTION PANEL Routine 12/14/2021 4:02 AM Results for this EDT procedure are i n the results section. BASIC METABOLIC PANEL Routine 12/14/2021 4:02 AM Results for this (NON-FASTING) EDT procedure are in the results section. URINALYSIS WITH REFLEX Routine 12/13/2021 8:50 PM Results for this CULTURE EDT procedure are i n the results section. XR CHEST ONE VIEW Routine 12/13/2021 8:13 PM Resu lts for this EDT procedure are i n the results section. HC VENIPUNCTURE STAT 12/13/2021 8:11 PM Result s for this EDT procedure are i n the results section. HC BLOOD CULTURE- STAT 12/13/2021 8:11 PM Resu lts for this EDT procedure are i n the results section. HC RESPIRATORY VIRUS Routine 12/13/2021 6:00 PM R esults for this PANEL BY PCR EDT procedure are i n the results section. HC PCH EBV QUANT Routine 12/13/2021 6:00 PM Resul ts for this PCR-FRANCO EDT procedure are i n the results section. HC CMV QUANT Routine 12/13/2021 6:00 PM Results f or this EDT procedure are i n the results section. HC MAGNESIUM, SERUM Routine 12/13/2021 6:00 PM Re sults for this EDT procedure are i n the results section. HC LACTIC Routine 12/13/2021 6:00 PM Results f or this DEHYDROGENASE EDT procedure are in the results section. BASIC METABOLIC PANEL Routine 12/13/2021 6:00 PM Results for this (NON-FASTING) EDT procedure are in the results section. EKG 12-LEAD Routine 12/13/2021 5:35 PM Acute myeloid Results for this EDT leukemia in procedure are i n remission the results section. documented in this encounter Results CHIMERISM BLOOD REPORT (12/17/2021 4:30 AM EDT) Component Value Ref Test Analysis Performed At [facility] gist Range Method Time Signature Chimerism Chimerism Blood Report JIA Blood Report [facility] Post-Stem Cell Transplant Assessment of Engraftment by [facility] rt Tandem Repeat HOSPITAL (STR) Analysis Using [...] the followin g STR loci: Amelogenin, CSF1PO, V59P284, X79J805, D18S51, G37H553, D21S1 1, I7V1867, P6W8499, J7B920, N0W326, Q2G0282, FGA, TH01, TPOX, vWA. PCR products were [...] the purity of each fra ction or territory representative fractions when using a new lot [...] test was developed and its performance [facility] determined by the Clinical Genomics and Advanc ed Technology (CGAT) Laboratory at [facility]. It has not been cleared or approved by the FDA. The laboratory is regulated under CLIA as qualified to perform high-complexity testing. This elder t is used for clinical purposes. It should not be regarded as investigational or fo r research. Specimen Anatomical Collection Method Collection Time Receive d Time (Source) Location / / Volume Laterality 12/17/2021 4:30 AM 7:44 EDT AM EDT Deng Yost MD HEMATOLOGY ORDERABLES Performing Organization Address City/State/ZIP Code Phon e Number [place] [phone] (ABNORMAL) Differential, Automated (12/17/2021 4:30 AM EDT) [facility] Method Time Signature Neutrophils % 70.6 % [facility]OR[facility] Neutr Abs (ANC) 3.47 1.70 - [facility] 6.10 [facility] x10(3)/[facility] LABORATORY Lymphocytes % 15.5 % [facility] Lymphocytes Abs 0.8 (L) 0.9 - 3.2 [facility] x10(3)/[facility] LABORATORY Monocytes % 9.4 % [facility] Monocyte Abs 0.5 0.3 - 0.9 [facility] x10(3)/[facility] LABORATORY Eosinophils % 3.1 % [facility] Eosinophils Abs 0.2 0.0 - 0.4 [facility] x10(3)/[facility] LABORATORY Basophils % 0.6 % [facility] Basophils Abs 0.0 0.0 - 0.1 [facility] x10(3)/[facility] LABORATORY Immature Gran % 0.80 % [...] Zara Gran Abs 0.04 0.00 - 0.04 x10(3)/[facility] LABORATORY Specimen Anatomical Collection Method Collection Time Receive d Time (Source) Location / / Volume Laterality Blood 12/17/2021 4:30 AM 4:42 EDT AM EDT Resulting Agency Comment Spec In Lab Deng Yost MD HEMATOLOGY ORDERABLES Performing Organization Address City/State/[place] [address] (ABNORMAL) Hemogram (12/17/2021 4:30 AM EDT) Analysis Performed At Patho logist Time Signature WBC 4.9 4.0 - 9.5 [facility] x10(3)/[facility] LABORATORY RBC 2.50 (L) 4.58 - [facility] 5.54 [facility] x10(6)/[facility] LABORATORY Hemoglobin 8.2 (L) 13.7 - [facility] 16.5 g/dL [facility] Hematocrit 24.8 (L) 40.5 - [facility] 48.5 % [facility] MCV 99.2 (H) 82.9 - [facility] 93.1 [facility] LABORATORY MCH 32.8 (H) 27.5 - [facility] 32.1 pg [facility] MCHC 33.1 32.0 - [facility] 35.7 g/dL [facility] Platelets 43 (L) 145 - 357 [facility] x10(3)/[facility] LABORATORY RDWSD 73.2 (H) 36.0 - [facility] 45.0 [facility] LABORATORY RDWCV 20.7 (H) 11.4 - [facility] 13.8 % [facility] MPV 11.1 7.6 - 12.9 [facility] LABORATORY nRBC % Auto 0.0 % [facility] nRBC Abs Auto 0.000 0.000 - [facility] 0.000 [facility] x10(3)/[facility] LABORATORY Specimen Anatomical Collection Method Collection Time Receive d Time (Source) Location / / Volume Laterality Blood 12/17/2021 4:30 AM 2 4:42 EDT AM EDT Resulting Agency Comment Spec In Lab Deng Yost MD HEMATOLOGY ORDERABLES Performing Organization Address City/[facility]/ZIP Code [place] [address] .Chimerism Blood (12/17/2021 4:30 AM EDT) Analysis Performed At Patho logist Time Signature Chimerism Complete [facility] LABORATORY Specimen Anatomical Collection Method Collection Time Receive d Time (Source) Location / / Volume Laterality Blood 12/17/2021 4:30 AM 2 7:44 EDT AM EDT Resulting Agency Comment Spec In Lab Deng Yost MD HEMATOLOGY ORDERABLES Performing Organization Address City/[facility]/ZIP [place] [address] (ABNORMAL) Hepatic Function Panel (12/17/2021 4:30 AM EDT) P athologist Signature Total Protein 5.8 (L) 6.1 - 8.0 [facility] g/dL [facility] Albumin 3.3 3.2 - 5.2 [facility] g/dL [facility] AST 15 0 - 39 [facility] unit/L [facility] ALT 12 0 - 55 [facility] unit/L [facility] Alk Phos 173 (H) 40 - 130 [facility] unit/L [facility] Total 0.3 0.2 - 1.3 [facility] Bilirubin mg/dL [facility] Bili, Direct 0.1 0.0 - 0.3 [facility] mg/dL [facility] Specimen Anatomical Collection Method Collection Time Receive d Time (Source) Location / / Volume Laterality Blood 12/17/2021 4:30 AM 2 4:42 EDT AM EDT Resulting Agency Comment Spec In Lab Urban Dos Santos MD CHEMISTRY ORDERABLES Performing Organization Address City/[facility]/ZIP Code [place] [address] Phosphorus (12/17/2021 4:30 AM EDT) athologist Signature Phosphorus 3.3 2.5 - 4.[facility] Specimen Anatomical Collection Method Collection Time Receive d Time (Source) Location / / Volume Laterality Blood 12/17/2021 4:30 AM 2 4:42 EDT AM EDT Resulting Agency Comment Spec In Lab Urban Dos Santos MD CHEMISTRY ORDERABLES Performing Organization Address City/[facility]/ZIP Code Phon e Number [address] (ABNORMAL) Magnesium (12/17/2021 4:30 AM EDT) athologist Signature Magnesium 0.54 (L) 0.69 - 1.07 [facility] mmol/L [facility] LABOR[facility] Specimen Anatomical Collection Method Collection Time Receive d Time (Source) Location / / Volume Laterality Blood 12/17/2021 4:30 AM 2 4:42 EDT AM EDT Resulting Agency Comment Spec In Lab Khalif Carcamo MD CHEMISTRY ORDERABLES Performing Organization Address City/State/ZIP Code Phon e Number [address] (ABNORMAL) Basic Metabolic Panel (non-fasting) (12/17/2021 4:30 AM EDT) athologist Signature Glucose Lvl 87 65 - 199 [facility] mg/dL [facility] Comment: Diabetes: >=200 mg/dL plus symp toms BUN 20 10 - 20 mg/dL [facility] Creatinine 1.53 (H) 0.80 - 1.50 mg/dL [facility] LABORATORY Sodium 139 135 - 145 mmol/L [facility] Potassium 4.4 3.5 - 5.0 mmol/L [facility] LAB[facility] Comment: Please note: ??Patients with WBC >100,00 0 may have falsely elevated Potassium levels. ??For accurate Potassium quantif ication in these patients send serum separator tube (gold top) for subsequent determinations. ??Contact the Clinical Chemistry Laboratory if there are any qu estions. Chloride 112 (H) 98 - 107 mmol/L [facility] CO2 16 (L) 22 - 31 mmol/L [facility] Anion Gap 11 5 - 15 mmol/L [facility] Calcium 9.0 8.5 - 10.5 mg/dL [facility] Estimated GFR 48 (L) >=60 mL/min/1.73 m?? [facility] Comment: This patient? s estimated glomerular filtration rate (eGFR) is between 48 mL/min/1.73 m2 (patients with less muscl e mass per kg body weight) and 56 mL/min/1.73 m2 (patients with more muscl e [...] / Volume Laterality Blood 12/17/2021 4:30 AM 4:42 EDT AM EDT Resulting Agency Comment Spec In Lab Khalif Carcamo MD CHEMISTRY ORDERABLES Performing Organization Address City/State/[place] [address] COVID-19 PCR (12/16/2021 4:10 PM EDT) [facility] Method Time Signature SARS-CoV-2 Not Detected Not Detected [facility] RNA PCR [facility] LABORATORY Comment: This result should be interpreted in com bination with the clinical observations, patient history and epidem iological information. For testing of asymptomatic individuals, assay performa nce characteristics and clinical utility have not been evaluated. Testing for SARS-CoV-2 (Severe acute respiratory syndrome coronavirus 2, form erly known as 2018 novel coronavirus or 2019-nCoV) to aid in the diagnosis of CO VID-19 is performed using the Simplexa COVID-19 Direct Assay by Vivartescirilo herzog as authorized by the FDA issued Emergency Use Authorization (EUA). This assay is intended for In-vitro Diagnostic (IVD) use with nasopharyngeal swabs collected from individuals meeting the CDC criteria for testing. assay is performed based on the instructions for use and additional guid ance provided by the FDA. Testing is performed in the Microbiology Laboratory within the Department of Pathology and Laboratory Medicine at [facility], certified under the Clinical Laboratory [...] fact sheets at the following FDA website: https://www.fda.gov/medical-devices/isllawnjbfz-pcspbjb-9207-tygoy-36-ttqffaguv- dxj-pluqpldehmnnfz-dtbffqs-devices/yzukz-xjywwrswpzw-jjod SARS-CoV-2 Source BAG PATCHER Swab [facility] LABORATORY Specimen (Source) Anatomical Collection Method Collection Time Re ceived Time Location / / Volume Laterality Nasopharyngeal Swab 12/16/2021 4:10 12/16 PM EDT 4:43 PM EDT Comment: Symptoms->Surveillance Resulting Agency Comment Spec In Lab Khalif Carcamo MD MICROBIOLOGY - GENERAL ORDER BRINA Performing Organization Address City/[facility]/ZIP [place] [address] Tacrolimus level (12/16/2021 8:30 AM EDT) P athologist Signature Tacrolimus Lvl 4.3 ng/mL [facility] Comment: Trough [...] (Source) Location / / Volume Laterality Blood 12/16/2021 8:30 AM 9:06 EDT AM EDT Resulting Agency Comment Spec In Lab Urban Dos Santos MD CHEMISTRY ORDERABLES Performing Organization Address City/[facility] Phon e Number [address] (ABNORMAL) Differential, Automated (12/16/2021 2:40 AM EDT) Patholo gist Method Time Signature Neutrophils % 71.3 % [facility] Neutr Abs (ANC) 3.07 1.70 - [facility] 6.10 [facility] x10(3)/[facility] LABORATORY Lymphocytes % 15.1 % [facility] Lymphocytes Abs 0.6 (L) 0.9 - 3.2 [facility] x10(3)/[facility] LABORATORY Monocytes % 9.8 % [facility] Monocyte Abs 0.4 0.3 - 0.9 [facility] x10(3)/[facility] LABORATORY Eosinophils % 2.6 % [facility] Eosinophils Abs 0.1 0.0 - 0.4 [facility] x10(3)/[facility] LABORATORY Basophils % 0.5 % [facility] Basophils Abs 0.0 0.0 - 0.1 [facility] x10(3)/[facility] LABORATORY Immature Gran % 0.70 % [facility] Comment: Immature granulocytes(IG's)percentage an d absolute count will include metamyelocytes, myelocytes, and promyelo cytes. Blood smears from CBCs yielding IG's will be scanned manually for concor dance. If this scan disagrees with the automated IG or if promyelocytes are not ed, a manual differential will be performed. Zara Gran Abs 0.03 0.00 - 0.04 x10(3)/[facility] LABORATORY Specimen Anatomical Collection Method Collection Time Receive d Time (Source) Location / / Volume Laterality Blood 12/16/2021 2:40 AM 2:58 EDT AM EDT Resulting Agency Comment Spec In Lab Deng Yost MD HEMATOLOGY ORDERABLES Performing Organization Address City/State/ZIP [place] [address] (ABNORMAL) Hemogram (12/16/2021 2:40 AM EDT) [facility] gist Method Time Signature WBC 4.3 4.0 - 9.5 [facility] x10(3)/[facility] LABORATORY RBC 2.58 (L) 4.58 - [facility] 5.54 [facility] x10(6)/[facility] LABORATORY Hemoglobin 8.4 (L) 13.7 - [facility] 16.5 g/dL [facility] Hematocrit 26.0 (L) 40.5 - [facility] 48.5 % [facility] MCV 100.8 (H) 82.9 - [facility] 93.1 [facility] LABORATORY MCH 32.6 (H) 27.5 [facility].1 pg [facility] MCHC 32.3 32.0 - [facility] 35.7 g/dL [facility] Platelets 44 (L) 145 - 357 [facility] x10(3)/[facility] LABORATORY RDWSD 75.0 (H) 36.0 - [facility] 45.0 [facility] LABORATORY RDWCV 20.7 (H) 11.4 - [facility] 13.8 % [facility] LABORATORY MPV 11.8 7.6 - 12.9 [facility] nRBC % Auto 0.0 % [facility] nRBC Abs Auto 0.000 0.000 - [facility] 0.000 [facility] x10(3)/[facility] LABORATORY Specimen Anatomical Collection Method Collection Time Receive d Time (Source) Location / / Volume Laterality Blood 12/16/2021 2:40 AM 2 2:58 EDT AM EDT Resulting Agency Comment Spec In Lab Deng Yost MD HEMATOLOGY ORDERABLES Performing Organization Address City/State/ZIP Code Phon e Number [address] Magnesium (12/16/2021 2:40 AM EDT) athologist Signature Magnesium 0.71 0.69 - 1.07 [facility] mmol/L [facility] LABORATORY Specimen Anatomical Collection Method Collection Time Receive d Time (Source) Location / / Volume Laterality Blood 12/16/2021 2:40 AM 2 2:58 EDT AM EDT Resulting Agency Comment Spec In Lab Urban Dos Santos MD CHEMISTRY ORDERABLES Performing Organization Address City/State/ZIP Code Phon e Number [address] (ABNORMAL) Basic Metabolic Panel (non-fasting) (12/16/2021 2:40 AM EDT) athologist Signature Glucose Lvl 91 65 - 199 [facility] mg/dL [facility] Comment: Diabetes: >=200 mg/dL plus symp toms BUN 27 (H) 10 - 20 mg/dL [facility] Creatinine 1.75 (H) 0.80 - 1.50 mg/dL [facility] LABORATORY Sodium 140 135 - 145 mmol/L [facility] Potassium 4.7 3.5 - 5.0 mmol/L [facility] Comment: Please note: ??Patients with WBC >100,00 0 may have falsely elevated Potassium levels. ??For accurate Potassium quantif ication in these patients send serum separator tube (gold top) for subsequent determinations. ??Contact the Clinical Chemistry Laboratory if there are any qu estions. Chloride 113 (H) 98 - 107 mmol/L [facility] CO2 16 (L) 22 - 31 mmol/L [facility] Anion Gap 11 5 - 15 mmol/L [facility] Calcium 9.1 8.5 - 10.5 mg/dL [facility] Estimated GFR 41 (L) >=60 mL/min/1.73 m?? [facility] Comment: This patient? s estimated glomerular filtration rate (eGFR) is between 41 mL/min/1.73 m2 (patients with less muscl e mass per kg body weight) and 48 mL/min/1.73 m2 (patients with more muscl e [...] (Source) Location / / Volume Laterality Blood 12/16/2021 2:40 AM 2 2:58 EDT AM EDT Resulting Agency Comment Spec In Lab Urban Dos Santos MD CHEMISTRY ORDERABLES Performing Organization Address City/State/[place] [address] Phosphorus (12/16/2021 2:40 AM EDT) P athologist Signature Phosphorus 3.3 2.5 - 4.5 [facility] mg/dL [facility]OR[facility] Specimen Anatomical Collection Method Collection Time Receive d Time (Source) Location / / Volume Laterality Blood 12/16/2021 2:40 AM 2 2:58 EDT AM EDT Resulting Agency Comment Spec In Lab Urban Dos Santos MD CHEMISTRY ORDERABLES Performing Organization Address City/[facility]/ZIP Code [place] [address] (ABNORMAL) Hepatic Function Panel (12/16/2021 2:40 AM EDT) P athologist Signature Total Protein 5.9 (L) 6.1 - 8.0 [facility] ARASELI g/dL [facility] Albumin 3.4 3.2 - 5.2 [facility] g/dL [facility] AST 16 0 - 39 [facility] unit/L [facility] ALT 11 0 - 55 [facility] unit/L [facility] Alk Phos 197 (H) 40 - 130 [facility] ARASELI unit/L [facility] Total 0.3 0.2 - 1.3 [facility] Bilirubin mg/dL [facility] Bili, Direct 0.1 0.0 - 0.3 [facility] ARASLEI mg/dL [facility] Specimen Anatomical Collection Method Collection Time Receive d Time (Source) Location / / Volume Laterality Blood 12/16/2021 2:40 AM 2 2:58 EDT AM EDT Resulting Agency Comment Spec In Lab Urban Dos Santos MD CHEMISTRY ORDERABLES Performing Organization Address City/[facility]/ZIP Code [place] [address] (ABNORMAL) Basic Metabolic Panel (non-fasting) (12/15/2021 4:40 PM EDT) athologist Signature Glucose Lvl 138 65 - [address] [facility] Comment: Diabetes: >=200 mg/dL plus symp toms BUN 30 (H) 10 - 20 mg/dL [facility] Creatinine 1.89 (H) 0.80 - 1.50 mg/dL [facility] Sodium 138 135 - 145 mmol/L [facility] Potassium 5.3 (H) 3.5 - 5.0 mmol/L [facility] Comment: Please note: ??Patients with WBC >100,00 0 may have falsely elevated Potassium levels. ??For accurate Potassium quantif ication in these patients send serum separator tube (gold top) for subsequent determinations. ??Contact the Clinical Chemistry Laboratory if there are any qu estions. Chloride 113 (H) 98 - 107 mmol/L [facility] CO2 16 (L) 22 - 31 mmol/L [facility] Anion Gap 9 5 - 15 mmol/L [facility] Calcium 8.6 8.5 - 10.5 mg/dL [facility] Estimated GFR 37 (L) >=60 mL/min/1.73 m?? [facility] Comment: This patient? s estimated glomerular filtration rate (eGFR) is between 37 mL/min/1.73 m2 (patients with less muscl e mass per kg body weight) and 43 mL/min/1.73 m2 (patients with more muscl e [...] (Source) Location / / Volume Laterality Blood 12/15/2021 4:40 PM 2 5:05 EDT PM EDT Resulting Agency Comment Spec In Lab Urban Dos Santos MD CHEMISTRY ORDERABLES Performing Organization Address City/[facility] [place] [address] Magnesium (12/15/2021 4:40 PM EDT) P athologist Signature Magnesium 0.75 0.69 - 1.07 [facility]/L [facility] Specimen Anatomical Collection Method Collection Time Receive d Time (Source) Location / / Volume Laterality Blood 12/15/2021 4:40 PM 2 5:05 EDT PM EDT Resulting Agency Comment Spec In Lab Urban Dos Santos MD CHEMISTRY ORDERABLES Performing Organization Address City/[facility]/ZIP Code Phon e Number [address] Scan, Peripheral Blood (12/15/2021 12:44 AM EDT) [facility] Method Time Signature Plat Estimate Decreased [facility] RBC Morphology Abnormal [facility] Ovalocytes 1-5 /HPF [facility] Tear Drop Cells 1-5 /HPF [facility] Specimen Anatomical Collection Method Collection Time Receive d Time (Source) Location / / Volume Laterality Blood 12/15/2021 12:44 12/15/2021 AM EDT 12:50 AM EDT Resulting Agency Comment Spec In Lab Deng Yost MD HEMATOLOGY ORDERABLES Performing Organization Address City/[facility]/ZIP Code Phon e Number [address] Type and Screen Validity (12/15/2021 12:44 AM EDT) [facility] Method [place] Signature T&S only valid [facility] LABORATORY Comment: This Type and Screen result is only valid at the [facility] Hospital Specimen Anatomical Collection Method Collection Time Receive d Time (Source) Location / / Volume Laterality Blood Venous Draw / 12/15/2021 12:44 12/15/2021 Unknown AM EDT 12:51 AM EDT Resulting Agency Comment Spec In Lab Jose D Naranjo Jr., MD BLOOD BANK ORDERABLES Performing Organization Address City/[facility]/ZIP Code Phon e Number [address] ABORH Recheck Status (12/15/2021 12:44 AM EDT) [facility] Signature ABORH Type Completed [facility] LABORATORY Specimen Anatomical Collection Method Collection Time Receive d Time (Source) Location / / Volume Laterality Blood Venous Draw / 12/15/2021 12:44 12/15/2021 Unknown AM EDT 12:51 AM EDT Resulting Agency Comment Spec In Lab Jose D Naranjo Jr., MD BLOOD BANK ORDERABLES Performing Organization Address City/[facility]/ZIP Code Phon e Number [address] Antibody screen manual (12/15/2021 12:44 AM EDT) Analysis Performed At Patho logist Time Signature AB Screen Negative [facility] LABORATORY Specimen Anatomical Collection Method Collection Time Receive d Time (Source) Location / / Volume Laterality Blood Venous Draw / 12/15/2021 12:44 12/15/2021 Unknown AM EDT 12:51 AM EDT Resulting Agency Comment Spec In Lab Jose D Naranjo Jr., MD BLOOD BANK ORDERABLES Performing Organization Address City/[facility]/ZIP Code Phon e Number [address] ABORh Type Manual (12/15/2021 12:44 AM EDT) Patholo gist Method Time Signature Expires at 12/18/2021 [facility] [id number] on: [facility] LABORATORY ABORh Type O Neg [facility] LABORATORY Specimen Anatomical Collection Method Collection Time Receive d Time (Source) Location / / Volume Laterality Blood Venous Draw / 12/15/2021 12:44 12/15/2021 Unknown AM EDT 12:51 AM EDT Resulting Agency Comment Spec In Lab Jose D Naranjo Jr., MD BLOOD BANK ORDERABLES Performing Organization Address City/[facility]/ZIP Code Phon e Number [address] Differential, Automated (12/15/2021 12:44 AM EDT) P athologist Signature Neutrophils % 71.8 % [facility] LABORATORY Neutr Abs (ANC) 4.04 1.70 - [facility] 6.10 [facility] x10(3)/[facility] LABORATORY Lymphocytes % 15.5 % [facility] LABORATORY Lymphocytes Abs 0.9 0.9 - 3.2 [facility] x10(3)/[facility] LABORATORY Monocytes % 9.8 % [facility] LABORATORY Monocyte Abs 0.6 0.3 - 0.9 [facility] x10(3)/[facility] LABORATORY Eosinophils % 1.8 % [facility] LABOR[facility]ORY Eosinophils Abs 0.1 0.0 - 0.4 [facility] x10(3)/[facility] LABORATORY Basophils % 0.4 % [facility] LABORATORY Basophils Abs 0.0 0.0 - 0.1 [facility] x10(3)/[facility] LABORATORY Immature Gran % 0.70 % [...] Zara Gran Abs 0.04 0.00 - 0.04 x10(3)/[facility] LABORATORY Specimen Anatomical Collection Method Collection Time Receive d Time (Source) Location / / Volume Laterality Blood 12/15/2021 12:44 12/15/2021 AM EDT 12:50 AM EDT Resulting Agency Comment Spec In Lab Deng Yost MD HEMATOLOGY ORDERABLES Performing Organization Address City/State/ZIP Code [place] [address] (ABNORMAL) Hemogram (12/15/2021 12:44 AM EDT) Analysis Performed At Patho logist Time Signature WBC 5.6 4.0 - 9.5 [facility] x10(3)/[facility] LABORATORY RBC 2.53 (L) 4.58 - [facility] 5.54 [facility] x10(6)/[facility] LABORATORY Hemoglobin 8.3 (L) 13.7 [facility] 16.5 g/dL [facility] LABOR[facility]ORY Hematocrit 25.1 (L) 40.5 [facility] 48.5 % [facility] MCV 99.2 (H) 82.9 [facility] 93.1 fL [facility] MCH 32.8 (H) 27.5 - [facility] 32.1 pg [facility] MCHC 33.1 32.0 [facility] 35.7 g/dL [facility] Platelets 49 (L) 145 - 357 [facility] x10(3)/[facility] LABORATORY RDWSD 73.8 (H) 36.0 - [facility] 45.0 fL [facility] LABORATORY RDWCV 20.8 (H) 11.4 - [facility] 13.8 % [facility] LABORATORY MPV 11.7 7.6 - 12.9 [facility] LABORATORY nRBC % Auto 0.0 % [facility] LABORATORY nRBC Abs Auto 0.000 0.000 - [facility] 0.000 [facility] x10(3)/[facility] LABORATORY Specimen Anatomical Collection Method Collection Time Receive d Time (Source) Location / / Volume Laterality Blood 12/15/2021 12:44 12/15/2021 AM EDT 12:50 AM EDT Resulting Agency Comment Spec In Lab Deng Yost MD HEMATOLOGY ORDERABLES Performing Organization Address City/State/ZIP Code Phon e Number [address] Phosphorus (12/15/2021 12:44 AM EDT) P athologist Signature Phosphorus 3.5 2.5 - 4.5 [facility] mg/dL [facility] LABORATORY Specimen Anatomical Collection Method Collection Time Receive d Time (Source) Location / / Volume Laterality Blood 12/15/2021 12:44 12/15/2021 AM EDT 12:50 AM EDT Resulting Agency Comment Spec In Lab Urban Dos Santos MD CHEMISTRY ORDERABLES Performing Organization Address City/State/ZIP [facility] [place] [address] (ABNORMAL) Hepatic Function Panel (12/15/2021 12:44 AM EDT) P athologist Signature Total Protein 5.9 (L) 6.1 - 8.0 [facility] g/dL [facility] LABORATORY Albumin 3.4 3.2 - 5.2 [facility] g/dL [facility] LABOR[facility] AST 15 0 - 39 [facility] unit/L [facility] ALT 13 0 - 55 [facility] unit/L [facility] Alk Phos 209 (H) 40 - 130 [facility] unit/L [facility] Total 0.3 0.2 - 1.3 [facility] Bilirubin mg/dL [facility] LABOR[facility] Bili, Direct 0.1 0.0 - 0.3 [facility] LAB[facility]ORY Specimen Anatomical Collection Method Collection Time Receive d Time (Source) Location / / Volume Laterality Blood 12/15/2021 12:44 12/15/2021 AM EDT 12:50 AM EDT Resulting Agency Comment Spec In Lab Urban Dos Santos MD CHEMISTRY ORDERABLES Performing Organization Address City/[facility]/ZIP Code Phon e Number [address] Magnesium (12/15/2021 12:44 AM EDT) P athologist Signature Magnesium 0.93 0.69 - 1.07 [facility]/L [facility] LABORATORY Specimen Anatomical Collection Method Collection Time Receive d Time (Source) Location / / Volume Laterality Blood 12/15/2021 12:44 12/15/2021 AM EDT 12:50 AM EDT Resulting Agency Comment Spec In Lab Urban Dos Santos MD CHEMISTRY ORDERABLES Performing Organization Address City/State/ZIP Code Phon e Number [address] (ABNORMAL) Basic Metabolic Panel (non-fasting) (12/15/2021 12:44 AM EDT) P athologist Signature Glucose Lvl 102 65 - 199 [facility] mg/dL [facility] LABORATORY Comment: Diabetes: >=200 mg/dL plus symp toms BUN 34 (H) 10 - 20 mg/dL [facility] LABORATORY Creatinine 2.14 (H) 0.80 - 1.50 mg/dL [facility] LABORATORY Sodium 138 135 - 145 mmol/L [facility] LABORATORY Potassium 4.9 3.5 - 5.0 mmol/L [facility] LABORATORY Comment: Please note: ??Patients with WBC >100,00 0 may have falsely elevated Potassium levels. ??For accurate Potassium quantif ication in these patients send serum separator tube (gold top) for subsequent determinations. ??Contact the Clinical Chemistry Laboratory if there are any qu estions. Chloride 113 (H) 98 - 107 mmol/L [facility] LABOR[facility] CO2 16 (L) 22 - 31 mmol/L [facility] Anion Gap 9 5 - 15 mmol/L [facility] Calcium 8.8 8.5 - 10.5 mg/dL [facility] LABORAT[facility] Estimated GFR 32 (L) >=60 mL/min/1.73 m?? [facility] LABOR[facility] Comment: This patient? s estimated glomerular filtration rate (eGFR) is between 32 mL/min/1.73 m2 (patients with less muscl e mass per kg body weight) and 37 mL/min/1.73 m2 (patients with more muscl e [...] (Source) Location / / Volume Laterality Blood 12/15/2021 12:44 12/15/2021 AM EDT 12:50 AM EDT Resulting Agency Comment Spec In Lab Urban Dos Santos MD CHEMISTRY ORDERABLES Performing Organization Address City/[facility]/ZIP Code Phon e Number [address] Magnesium (12/14/2021 1:45 PM EDT) P athologist Signature Magnesium 0.86 0.69 - 1.07 [facility] mmol/L [facility] LABORATORY Specimen Anatomical Collection Method Collection Time Receive d Time (Source) Location / / Volume Laterality Blood 12/14/2021 1:45 PM 2 1:58 EDT PM EDT Resulting Agency Comment Spec In Lab Khloe Richardson MD CHEMISTRY ORDERABLES Performing Organization Address City/[facility]/ZIP Code Phon e Number [address] Phosphorus (12/14/2021 1:45 PM EDT) athologist Signature Phosphorus 4.1 2.5 - 4.5 [facility] mg/dL [facility] LABORATORY Specimen Anatomical Collection Method Collection Time Receive d Time (Source) Location / / Volume Laterality Blood 12/14/2021 1:45 PM 2 1:58 EDT PM EDT Resulting Agency Comment Spec In Lab Khloe Richardson MD CHEMISTRY ORDERABLES Performing Organization Address City/State/[place] [address] (ABNORMAL) Basic Metabolic Panel (non-fasting) (12/14/2021 1:45 PM EDT) athologist Signature Glucose Lvl 142 65 - 199 [facility] mg/dL [facility]OR[facility] Comment: Diabetes: >=200 mg/dL plus symp toms BUN 38 (H) 10 - 20 mg/dL [facility] Creatinine 2.27 (H) 0.80 - 1.50 mg/dL [facility] LABOR[facility] Sodium 138 135 - 145 mmol/L [facility] Potassium 5.1 (H) 3.5 - 5.0 mmol/L [facility] LABOR[facility] Comment: Please note: ??Patients with WBC >100,00 0 may have falsely elevated Potassium levels. ??For accurate Potassium quantif ication in these patients send serum separator tube (gold top) for subsequent determinations. ??Contact the Clinical Chemistry Laboratory if there are any qu estions. Chloride 112 (H) 98 - 107 mmol/L [facility] CO2 17 (L) 22 - 31 mmol/L [facility] Anion Gap 9 5 - 15 mmol/L [facility] Calcium 8.7 8.5 - 10.5 mg/dL [facility] LABOR[facility] Estimated GFR 30 (L) >=60 mL/min/1.73 m?? [facility] Comment: This patient? s estimated glomerular filtration rate (eGFR) is between 30 mL/min/1.73 m2 (patients with less muscl e mass per kg body weight) and 35 mL/min/1.73 m2 (patients with more muscl e [...] (Source) Location / / Volume Laterality Blood 12/14/2021 1:45 PM 2 1:58 EDT PM EDT Resulting Agency Comment Spec In Lab Khloe Richardson MD CHEMISTRY ORDERABLES Performing Organization Address City/State/ZIP Code Phon e Number [place] [id number] HOSPITAL LAB[address]ATORY Drive (ABNORMAL) Differential, Automated (12/14/2021 4:02 AM EDT) [facility] gist Method Time Signature Neutrophils % 77.8 % [facility] LABORATORY Neutr Abs (ANC) 4.08 1.70 - [facility] 6.10 [facility] x10(3)/[facility] LABORATORY Lymphocytes % 12.0 % [facility] LABOR[facility] Lymphocytes Abs 0.6 (L) 0.9 - 3.2 [facility] x10(3)/[facility] LABORATORY Monocytes % 7.4 % [facility] LABORATORY Monocyte Abs 0.4 0.3 - 0.9 [facility] x10(3)/[facility] LABORATORY Eosinophils % 1.3 % [facility] Eosinophils Abs 0.1 0.0 - 0.4 [facility] x10(3)/[facility] LABORATORY Basophils % 0.4 % [facility] Basophils Abs 0.0 0.0 - 0.1 [facility] x10(3)/[facility] LABORATORY Immature Gran % 1.10 % [facility]OR[facility] Comment: Immature granulocytes(IG's)percentage an d absolute count will include metamyelocytes, myelocytes, and promyelo cytes. Blood smears from CBCs yielding IG's will be scanned manually for kirti black. If this scan disagrees with the automated IG or if promyelocytes are not ed, a manual differential will be performed. Zara Gran Abs 0.06 (H) 0.00 - 0.04 x10(3)/[facility] LABORATORY Specimen Anatomical Collection Method Collection Time Receive d Time (Source) Location / / Volume Laterality Blood 12/14/2021 4:02 AM 4:19 EDT AM EDT Resulting Agency Comment Spec In Lab Deng Yost MD HEMATOLOGY ORDERABLES Performing Organization Address City/State/[place] [address] (ABNORMAL) Hemogram (12/14/2021 4:02 AM EDT) Analysis Performed At Patho logist Time Signature WBC 5.2 4.0 - 9.5 [facility] x10(3)/[facility] LABORATORY RBC 2.53 (L) 4.58 - [facility] x10(6)/[facility] LABORATORY Hemoglobin 8.1 (L) 13.7 - [facility] 16.5 g/dL [facility]OR[facility] Hematocrit 25.2 (L) 40.5 [facility] 48.5 % [facility] MCV 99.6 (H) 82.9 - [facility] 93.1 [facility] LABORATORY MCH 32.0 27.5 [facility] 32.1 pg [facility]OR[facility] MCHC 32.1 32.0 - [facility] 35.7 g/dL [facility] Platelets 50 (L) 145 - 357 [facility] x10(3)/[facility] LABORATORY RDWSD 74.9 (H) 36.0 - [facility] 45.0 [facility] LABORATORY RDWCV 21.1 (H) 11.4 [facility] 13.8 % [facility] LABORATORY MPV 11.8 7.6 - 12.9 [facility] LABORATORY nRBC % Auto 0.0 % [facility]OR[facility] nRBC Abs Auto 0.000 0.000 - [facility] 0.000 [facility] x10(3)/[facility] LABORATORY Specimen Anatomical Collection Method Collection Time Receive d Time (Source) Location / / Volume Laterality Blood 12/14/2021 4:02 AM 2 4:19 EDT AM EDT Resulting Agency Comment Spec In Lab Deng Yost MD HEMATOLOGY ORDERABLES Performing Organization Address City/[facility]/ZIP Code Phon e Number [address] Magnesium (12/14/2021 4:02 AM EDT) P athologist Signature Magnesium 1.00 0.69 - 1.07 [facility] mmol/L [facility] LABORATORY Specimen Anatomical Collection Method Collection Time Receive d Time (Source) Location / / Volume Laterality Blood 12/14/2021 4:02 AM 2 4:19 EDT AM EDT Resulting Agency Comment Spec In Lab Urban Dos Santos MD CHEMISTRY ORDERABLES Performing Organization Address City/[facility]/ZIP Code [place] [address] (ABNORMAL) Basic Metabolic Panel (non-fasting) (12/14/2021 4:02 AM EDT) athologist Signature Glucose Lvl 99 65 - 199 [facility] mg/dL [facility] Comment: Diabetes: >=200 mg/dL plus symp toms BUN 40 (H) 10 - 20 mg/dL [facility] Creatinine 2.35 (H) 0.80 - 1.50 mg/dL [facility] LABOR[facility]ORY Sodium 135 135 - 145 mmol/L [facility] Potassium 5.5 (H) 3.5 - 5.0 mmol/L [facility]OR[facility] Comment: Please note: ??Patients with WBC >100,00 0 may have falsely elevated Potassium levels. ??For accurate Potassium quantif ication in these patients send serum separator tube (gold top) for subsequent determinations. ??Contact the Clinical Chemistry Laboratory if there are any qu estions. Chloride 110 (H) 98 - 107 mmol/L [facility] CO2 17 (L) 22 - 31 mmol/L [facility] Anion Gap 8 5 - 15 mmol/L [facility] Calcium 8.9 8.5 - 10.5 mg/dL [facility] Estimated GFR 29 (L) >=60 mL/min/1.73 m?? [facility] Comment: This patient? s estimated glomerular filtration rate (eGFR) is between 29 mL/min/1.73 m2 (patients with less muscl e mass per kg body weight) and 33 mL/min/1.73 m2 (patients with more muscl e [...] (Source) Location / / Volume Laterality Blood 12/14/2021 4:02 AM 2 4:19 EDT AM EDT Resulting Agency Comment Spec In Lab Urban Dos Santos MD CHEMISTRY ORDERABLES Performing Organization Address City/State/ZIP Code Phon e Number [address] (ABNORMAL) Phosphorus (12/14/2021 4:02 AM EDT) P athologist Signature Phosphorus 5.0 (H) 2.5 - 4.5 [facility] mg/dL [facility] LABORAT[facility] Specimen Anatomical Collection Method Collection Time Receive d Time (Source) Location / / Volume Laterality Blood 12/14/2021 4:02 AM 2 4:19 EDT AM EDT Resulting Agency Comment Spec In Lab Urban Dos Santos MD CHEMISTRY ORDERABLES Performing Organization Address City/State/ZIP Code Phon e Number [address] (ABNORMAL) Hepatic Function Panel (12/14/2021 4:02 AM EDT) P athologist Signature Total Protein 6.1 6.1 - 8.0 [facility] Albumin 3.4 3.2 - 5.2 [facility] g/dL [facility] AST 16 0 - 39 [facility] unit/L [facility] ALT 16 0 - 55 [facility] unit/L [facility] Alk Phos 231 (H) 40 - 130 [facility] unit/L [facility] Total 0.3 0.2 - 1.3 [facility] Bilirubin mg/dL [facility] Bili, Direct 0.1 0.0 - 0.3 [facility] mg/dL [facility]OR[facility] Specimen Anatomical Collection Method Collection Time Receive d Time (Source) Location / / Volume Laterality Blood 12/14/2021 4:02 AM 4:19 EDT AM EDT Resulting Agency Comment Spec In Lab Urban Dos Santos MD CHEMISTRY ORDERABLES Performing Organization Address City/State/ZIP Code [place] [address] Urinalysis with reflex Culture (12/13/2021 8:50 PM EDT) Patholo gist Method Time Signature Glucose UA Negative Negative [facility] mg/dL [facility] Protein UA Negative Negative [facility] mg/dL [facility] Bilirubin UA Negative Negative [facility] mg/dL [facility] Comment: Clinical correlation required for positi ve Urine Bilirubin results as false positive may occur with some drugs and d rug related products. If a false positive is suspected a serum total bili estrella should be considered if clinically indicated. Urobilinogen UA Normal Normal mg/dL [facility] pH UA 5.0 5.0 - 8.0 [facility] Blood UA Negative Negative mg/dL [facility] Ketones UA Negative Negative mg/dL [facility] Nitrite UA Negative Negative [facility] Leukocytes UA Negative Negative [facility] LABORATORY Appearance UA Clear Clear [facility] Spec [place] UA 1.016 1.005 - 1.030 [facility] Color UA Yellow Yellow [facility] Culture Reflexed No [facility] Specimen Anatomical Collection Method Collection Time Receive d Time (Source) Location / / Volume Laterality Clean Catch 12/13/2021 8:50 PM 9:00 Urine EDT PM EDT Resulting Agency Comment Spec In Lab Urban Dos Santos MD URINE ORDERABLES Performing Organization Address City/State/[place] [address] XR Chest One View (12/13/2021 8:13 PM [...] who have questions please contact the health healthcare technician that requested your imaging first. ? Narrative 12/14/2021 7:56 AM EDT EXAMINATION: XR [...] ho have questions please contact the health healthcare technician that requested your imaging first. Urban Dos Santos MD IMG DX ORDERABLES Blood culture (12/13/2021 8:11 PM EDT) [facility] Method Time Signature Blood Culture No growth [facility] at 5 days. [facility] Specimen Anatomical Collection Method Collection Time Receive d Time (Source) Location / / Volume Laterality Blood 12/13/2021 8:11 PM 8:58 EDT PM EDT Comment: Right Hand Resulting Agency Comment Spec In Lab Parviz Modi MD MICROBIOLOGY - BLOOD ORDERAB LES Performing Organization Address City/State/ZIP Code Phon e [place] [address] Blood culture (12/13/2021 8:11 PM EDT) [facility] Method Time Signature Blood Culture No growth [facility] at 5 days. [facility] Specimen Anatomical Collection Method Collection Time Receive d Time (Source) Location / / Volume Laterality Blood 12/13/2021 8:11 PM 2 8:57 EDT PM EDT Comment: Left Hand Resulting Agency Comment Spec In Lab Parviz Modi MD MICROBIOLOGY - BLOOD ORDERAB LES Performing Organization Address City/State/ZIP Code [place] [address] (ABNORMAL) EBV PCR Quantitative (12/13/2021 6:00 PM EDT) Patholo gist Method Time Signature EBV DNA BY <35 (A) Undetected [facility] PCR IU/mL [facility] Comment: Result in log IU/mL is <1.54. EBV DNA is detected, but level present i s <35 IU/mL (<1.54 log IU/mL). This assay cannot accurately quantify EBV DNA below this level. ADDITIONAL INFORMATIO N The quantification range of this assay i s 35 to 100,000,000 IU/mL (1.54 log to 8.00 log IU/mL). Test ing was performed using the jasmeet EBV test ([employer] with the jasmeet [id number] System. Test Performed by: [facility] [address] [place] [address] Photolithographer: Randal Aparicio M.D. Ph. D.; CLIA# [id number] Specimen Anatomical Collection Method Collection Time Receive d Time (Source) Location / / Volume Laterality Blood 12/13/2021 6:00 PM 2 EDT 10:09 AM EDT Resulting Agency Comment Spec In Lab Parviz Modi MD IMMUNOLOGY ORDERABLES Performing Organization Address City/State/ZIP Code Phon e Number [address] Magnesium (12/13/2021 6:00 PM EDT) athologist Signature Magnesium 0.83 0.69 - 1.07 [facility] mmol/L [facility] Specimen Anatomical Collection Method Collection Time Receive d Time (Source) Location / / Volume Laterality Blood 12/13/2021 6:00 PM 6:18 EDT PM EDT Resulting Agency Comment Spec In Lab Urban Dos Santos MD CHEMISTRY ORDERABLES Performing Organization Address City/State/[place] [address] (ABNORMAL) Basic Metabolic Panel (non-fasting) (12/13/2021 6:00 PM EDT) athologist Signature Glucose Lvl 93 65 - 199 [facility] mg/dL [facility] Comment: Diabetes: >=200 mg/dL plus symp toms BUN 43 (H) 10 - 20 mg/dL [facility] LABORATORY Creatinine 2.47 (H) 0.80 - 1.50 mg/dL [facility] Sodium 138 135 - 145 mmol/L [facility] Potassium 4.9 3.5 - 5.0 mmol/L [facility] Comment: Please note: ??Patients with [...] Anion Gap 12 5 - 15 mmol/L [facility] Calcium 9.1 8.5 - 10.5 mg/dL [facility] Estimated GFR 27 (L) >=60 mL/min/1.73 m?? [facility] Comment: This patient? s estimated glomerular filtration rate (eGFR) is between 27 mL/min/1.73 m2 (patients with less muscl e mass per kg body weight) and 31 mL/min/1.73 m2 (patients with more muscl e [...] / Volume Laterality Blood 12/13/2021 6:00 PM 2 6:18 EDT PM EDT Resulting Agency Comment Spec In Lab Urban Dos Santos MD CHEMISTRY ORDERABLES Performing Organization Address City/State/ZIP Code Phon e Number [address] CMV PCR, Quantitative (12/13/2021 6:00 PM EDT) Patholo gist Method Time Signature CMV Quant Not Detected Not Detected JIA (Numeric) IU/mL [facility] Comment: Indication for Study: Monitoring CMV [...] / Volume Laterality Blood 12/13/2021 6:00 PM 2 8:19 EDT AM EDT Resulting Agency Comment Spec In Lab Parviz Modi MD IMMUNOLOGY ORDERABLES Performing Organization Address City/State/ZIP Code Phon e Number [address] Lactate Dehydrogenase (12/13/2021 6:00 PM EDT) P athologist Signature [facility] 154 110 - 220 [facility] unit/L [facility] Specimen Anatomical Collection Method Collection Time Receive d Time (Source) Location / / Volume Laterality Blood 12/13/2021 6:00 PM 6:18 EDT PM EDT Resulting Agency Comment Spec In Lab Parviz Modi MD CHEMISTRY ORDERABLES Performing Organization Address City/State/[place] [address] Respiratory Panel PCR (12/13/2021 6:00 PM EDT) Analysis Performed At Patho logist Time Signature Resp Panel [facility] LABORATORY Resp Panel PCR Negative Negative [facility] Comment: Respiratory Panels are performed on the [place], using multiplexed PCR nucleic acid detection. ??Negative resul ts do not preclude respiratory infection and should not be used as the sole basis for diagnosis, treatment or other management decisions. Adenovirus Not Detected Not Detected [facility] Coronavirus HKU1 Not Detected Not Detected [facility] Coronavirus NL63 Not Detected Not Detected [facility] Coronavirus 229E Not Detected Not Detected [facility] Coronavirus OC43 Not Detected Not Detected [facility] SARS-CoV-2 Not Detected Not Detected [facility] Comment: Testing for SARS-CoV-2 (Severe acute res piratory syndrome coronavirus 2) to aid in the diagnosis of COVID-19 is performe d using the BioFire Respiratory Panel 2.1 (BioMerieuAcumatica) as authorized by the FD A issued [...] Testing is performed in laboratories within the [facility], each of which is certified under [...] clinical management guidance information are available at [facility] CDC Coronavirus Disease 2019 (COVID-19) webpage under Information fo r Healthcare Professionals (https://www.cdc.gov/coronavirus/2019-nc ov/hcp/index.html). Additional information about this and ot her EUA tests can be found in provider and patient fact sheets at the following FDA website: https://www.fda.gov/medical-devices/wgoowqasxfv-xltdvqq-3780-snqew-81-wmbdjvvui- mqh-acpqdghtrnvwko-bqthkbd-devices/xwzuy-jvmbetttpuh-asrk Human Metapneumovirus Not Detected Not Detected [facility] Human Rhino/Enterovirus Not Detected Not Detected [facility] Influenza A Not Detected Not Detected [facility] Influenza A H1 Not Detected Not Detected [facility] Influenza B Not Detected Not Detected [facility] Parainfluenza 1 Not Detected Not Detected [facility] Parainfluenza 2 Not Detected Not Detected [facility] Parainfluenza 3 Not Detected Not Detected [facility] Parainfluenza 4 Not Detected Not Detected [facility] Respiratory Syncytial Virus Not Detected Not Detected [facility] Chlamydophila pneumoniae Not Detected Not Detected [facility] Mycoplasma pneumoniae Not Detected Not Detected [facility] Specimen (Source) Anatomical Collection Method Collection Time Re ceived Time Location / / Volume Laterality Nasopharyngeal Swab 12/13/2021 6:00 12/13 PM EDT 6:51 PM EDT Resulting Agency Comment Spec In Lab Parviz Modi MD MICROBIOLOGY - GENERAL ORDER BRINA Performing Organization Address City/[facility] [address] EKG 12 Lead (12/13/2021 5:35 PM EDT) Component Value Ref Range Test Analysis Performed Pathologis t Method Time At Signature Ventricular rate 72 BPM MUSE SYSTEM Atrial Rate 72 BPM MUSE SYSTEM P-R Interval 142 ms MUSE SYSTEM QRS Duration 96 ms MUSE SYSTEM Q-T Interval 410 ms MUSE SYSTEM QTC Calculated 448 ms MUSE SYSTEM (Bezet) Calculated P Ripton 54 degrees MUSE SYSTEM Calculated R Ripton -2 degrees MUSE SYSTEM Calculated T Ripton 44 degrees MUSE SYSTEM INTERPRETATION Normal sinus rhythm MUSE SYSTEM Inferior infarct , age undetermined Poor R-wave progression Abnormal ECG When compared with ECG of 17-OCT-2021 11:23, Minimal criteria for Inferior infarct are now present Confirmed by Markel Gomez MDence ([id number]) on 12/14/2021 1:32:13 PM Specimen Anatomical Collection Method Collection Time Receive d Time (Source) Location / / Volume Laterality 12/13/2021 5:35 PM 1:32 EDT PM EDT Parviz Modi MD ECG ORDERABLES Performing Organization Address City/[facility] Phon e Number MUSE SYSTEM documented in this encounter Visit Diagnoses Diagnosis Hypomagnesemia 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 STACIE (acute kidney injury) Acute kidney failure, unspecified Dehydration Failure to thrive in adult Adult failure to thrive Severe protein-calorie malnutrition Other severe protein-calorie malnutritio n documented in this encounter Admitting Diagnoses Diagnosis Failure to thrive in adult Adult failure to thrive documented in this encounter Administered Medications Inactive Administered Medications - up to 3 most recent administrations Medication Order MAR Action Action Date Dose Rate Site acyclovir (Zovirax) tablet 800 mg Given 12/17/2021 9:04 AM EDT 800 mg 800 mg, Oral, 2 TIMES DAILY, First dose on Thu12/13/21 at 2100, Until Discontinued, Routine Given 12/16/2021 9:00 PM EDT 800 mg Given 12/16/2021 8:47 AM EDT 800 mg aspirin chewable tablet 81 mg Given 12/17/2021 9:06 AM EDT 81 mg 81 mg, Oral, DAILY, First dose on 12/14/21 at 0900, Until Discontinued, Routine Given 12/16/2021 8:47 AM EDT 81 mg Given 12/15/2021 9:18 AM EDT 81 mg budesonide EC (Entocort EC) capsule 9 mg Given 12/17/2021 6:22 AM EDT 9 mg 9 mg, Oral, EVERY MORNING, First dose on Thu12/13/21 at 1815, Until Discontinued, DO NOT CRUSH OR OPEN, Routine Given 12/16/2021 6:33 AM EDT 9 mg Given 12/15/2021 6:24 AM EDT 9 mg dronabinoL (Marinol) capsule 5 mg Given 12/17/2021 9:05 AM EDT 5 mg 5 mg, Oral, 2 TIMES DAILY, First dose on Thu12/14/21 at 1345, Until Discontinued, Routine Given 12/16/2021 9:00 PM EDT 5 mg Given 12/16/2021 8:46 AM EDT 5 mg flecainide (Tambocor) tablet 50 mg Given 12/17/2021 9:05 AM EDT 50 mg 50 mg, Oral, 2 TIMES DAILY, First dose on Thu12/13/21 at 2100, Until Discontinued, Routine Given 12/16/2021 9:00 PM EDT 50 mg Given 12/16/2021 8:47 AM EDT 50 mg fluconazole (Diflucan) tablet 200 mg Given 12/17/2021 9:04 AM EDT 200 mg 200 mg, Oral, DAILY, First dose on 12/14/21 at 0900, Until Discontinued, DO NOT SPLIT, CRUSH OR OPEN, Routine Given 12/16/2021 8:47 AM EDT 200 mg Given 12/15/2021 9:18 AM EDT 200 mg heparin (pf) (porcine) (100 units/mL) Given 12/17/2021 2:10 PM E DT 500 Units flush 5 mL syringe 500 Units 500 Units (5 mL), Intravenous, DAILY PRN, 1 dose, Starting on Thu12/17/21 at 1329, Until Thu12/17/21 at 1410, Line Care, Terminal Flush for de-accessing of Implantable Port, Routine heparin (porcine) (5,000 units/1 mL) Given 12/17/2021 6:22 AM ED T 5,000 Units subcutaneous injection 5,000 Units 5,000 Units, Subcutaneous, EVERY 8 HOURS SCHEDULED, First dose on Thu12/13/21 at 2200, Until Discontinued, Routine Given 12/16/2021 9:02 PM EDT 5,000 Units Given 12/16/2021 2:39 PM EDT 5,000 Units loperamide (Imodium A-D) capsule 2 mg Given 12/17/2021 9:05 AM EDT 2 mg 2 mg, Oral, 2 TIMES DAILY, First dose on Thu12/13/21 at 2100, Until Discontinued, Do not exceed 16 mg/day., Routine Given 12/16/2021 9:00 PM EDT 2 mg Given 12/16/2021 8:47 AM EDT 2 mg magnesium sulfate 2 g in sterile water New Bag 12/13/2021 11:4 4 AM EDT 2 g 25 mL/hr 50 mL infusion 2 g, Intravenous, DAILY PRN, Starting on Thu12/13/21 at 1125, Until Thu12/17/21 at 1730, Administer over 120 Minutes, hypomag post-stem cell transplant, Please give 2 gms for Magnesium less than 0.60 or less than the low end of normal at [facility] magnesium sulfate 2 g in sterile water New Bag 12/13/2021 6:45 PM EDT 2 g 25 mL/hr 50 mL infusion 2 g, Intravenous, ONCE, 1 dose, On Thu12/13/21 at 1845, Administer over 120 Minutes magnesium sulfate 2 g in sterile water New Bag 12/14/2021 4:30 PM EDT 2 g 25 mL/hr 50 mL infusion 2 g, Intravenous, ONCE, 1 dose, On Thu12/14/21 at 1530, Administer over 120 Minutes magnesium sulfate 2 g in sterile water New Bag 12/17/2021 6:20 AM EDT 2 g 25 mL/hr 50 mL infusion 2 g, Intravenous, ONCE, 1 dose, On Thu12/17/21 at 0615, Administer over 120 Minutes metoprolol tartrate (Lopressor) tablet 2 5 mg Given 12/17/2021 9:06 AM EDT 25 mg 25 mg, Oral, DAILY, First dose on 12/14/21 at 0900, Until Discontinued, Routine Given 12/16/2021 8:46 AM EDT 25 mg Given 12/15/2021 9:19 AM EDT 25 mg nystatin (Mycostatin) (100,000 Given 12/17/2021 2:09 PM EDT 500, 000 Units units/mL) oral liquid 500,000 Units 500,000 Units, Oral, 4 TIMES DAILY, First dose on Thu12/13/21 at 1815, Until Discontinued, Routine Given 12/17/2021 9:06 AM EDT 500,000 Units Given 12/16/2021 9:03 PM EDT 500,000 Units pantoprazole EC (Protonix) tablet 40 mg Given 12/17/2021 9:04 AM EDT 40 mg 40 mg, Oral, DAILY, First dose on 12/14/21 at 0900, Until Discontinued, DO NOT CRUSH OR OPEN, Routine Given 12/16/2021 8:47 AM EDT 40 mg Given 12/15/2021 9:18 AM EDT 40 mg pentamidine (Pentam) 300 mg in New Bag 12/13/2021 9:42 PM EDT 300 mg 51.5 mL/hr dextrose 5% 103 mL infusion 300 mg, Intravenous, ONCE, 1 dose, On Thu12/13/21 at 1845, Administer over 120 Minutes, Indication for (Active or Suspected): Prophylaxis, Restricted Antibiotic: Please indicate the most appropriate choice: Pre-approved indication (state the indication in comments field) rosuvastatin (Crestor) tablet 10 mg Given 12/17/2021 9:05 AM EDT 10 mg 10 mg, Oral, DAILY, First dose on 12/14/21 at 0900, Until Discontinued, Routine Given 12/16/2021 8:47 AM EDT 10 mg Given 12/15/2021 9:18 AM EDT 10 mg sodium chloride 0.9 % (flush) (BD PosiFlush Given 12/17/2021 9:0 0 AM EDT 5 mLs Normal Saline 0.9) flush 5 mL 5 mL, Intravenous, 2 TIMES DAILY, First dose on Thu12/13/21 at 2100, Until Discontinued, Routine Given 12/16/2021 8:47 AM EDT 5 mLs Given 12/15/2021 8:08 PM EDT 5 mLs sodium chloride 0.9% infusion New Bag 12/13/2021 11:44 AM EDT 150 mL/hr 150 mL/hr 150 mL/hr, Intravenous, CONTINUOUS, Starting on Thu12/13/21 at 1145, Until Thu12/13/21 at 1733, One liter over 1 hour sodium chloride 0.9% infusion New Bag 12/13/2021 7:15 PM EDT 125 mL/hr 125 mL/hr 125 mL/hr, Intravenous, CONTINUOUS, Starting on Thu12/13/21 at 1915, Until Thu12/13/21 at 2315 New Bag 12/13/2021 7:02 PM EDT 125 mL/hr 125 mL/hr sodium chloride 0.9% infusion New Bag 12/13/2021 11:38 PM EDT 150 mL/hr 150 mL/hr 150 mL/hr, Intravenous, CONTINUOUS, Starting on 12/14/21 at 0015, Until 12/14/21 at 1014 sodium chloride 0.9% infusion New Bag 12/14/2021 7:37 PM EDT 100 mL/hr 100 mL/hr 100 mL/hr, Intravenous, CONTINUOUS, Starting on 12/14/21 at 1115, Until Thu12/15/21 at 1114 Rate/Dose Change 12/14/2021 11:58 AM EDT 100 mL/hr 100 mL/hr sodium chloride 0.9% infusion New Bag 12/16/2021 10:06 AM EDT 100 mL/hr 100 mL/hr 100 mL/hr, Intravenous, CONTINUOUS, Starting on 12/15/21 at 1500, Until 12/16/21 at 1459 New Bag 12/16/2021 12:07 AM EDT 100 mL/hr 100 mL/hr New Bag 12/15/2021 4:38 PM EDT 100 mL/hr 100 mL/hr sodium chloride 0.9% infusion New Bag 12/17/2021 4:35 AM EDT 100 mL/hr 100 mL/hr 100 mL/hr, Intravenous, CONTINUOUS, Starting on Thu12/16/21 at 1600, Until Thu12/17/21 at 0859 New Bag 12/16/2021 9:02 PM EDT 100 mL/hr 100 mL/hr New Bag 12/16/2021 3:33 PM EDT 100 mL/hr 100 mL/hr tacrolimus (Prograf) (0.5 mg/mL) oral liquid Given 09/2021 8:46 AM EDT 0.6 mg 0.6 mg 0.6 mg, Oral, 2 TIMES DAILY, First dose on Thu12/13/21 at 2100, Until Discontinued, Routine Given 12/15/2021 8:07 PM EDT 0.6 mg Given 12/15/2021 9:25 AM EDT 0.6 mg tacrolimus (Prograf) capsule 0.5 mg Given 12/17/2021 9:04 AM EDT 0.5 mg 0.5 mg, Oral, 2 TIMES DAILY, First dose on Thu12/16/21 at 2100, Until Discontinued, DO NOT SPLIT, CRUSH OR OPEN, Routine Given 12/16/2021 9:00 PM EDT 0.5 mg tamsulosin (Flomax) capsule 0.4 mg Given 12/16/2021 9:00 PM EDT 0.4 mg 0.4 mg, Oral, NIGHTLY, First dose (after last modification) on Thu12/13/21 at 2100, Until Discontinued, DO NOT CRUSH OR OPEN, Routine Given 12/15/2021 8:07 PM EDT 0.4 mg Given 12/14/2021 9:04 PM EDT 0.4 mg vancomycin (Vancocin) capsule 125 mg Given 12/17/2021 9:05 AM EDT 125 mg 125 mg, Oral, 2 TIMES DAILY, First dose on Thu12/13/21 at 2100, Until Discontinued, Routine Given 12/16/2021 9:00 PM EDT 125 mg Given 12/16/2021 8:46 AM EDT 125 mg documented in this encounter Active and Recently Administered Medications Times are shown in EDT. Scheduled Medication Order 12/15/2021 12/16/2021 12/17/2021 acyclovir (Zovirax) tablet 800 mg 0918 (Given - Provid er: Pati Gilbert RN)2006 (Given - Provider: Emilia Reyna RN) 846 (Given - Provider: Mark Patel RN)2099 (Given - Provider: Radha Davis RN) 09 (Given - Provider: Pati Gilbert RN) 800 mg, Oral, 2 TIMES DAILY, First dose on Thu12/13/21 at 2100, Until Discontinued, Routine aspirin chewable tablet 81 mg 0918 (Given - Provider: Flores Gilbert RN) 846 (Given - Provider: Mark Patel RN) 09 (Given - Provider: Pati Gilbert RN) 81 mg, Oral, DAILY, First dose on Sat at 0900, Until Discontinued, Routine budesonide EC (Entocort EC) capsule 9 mg 0624 (Given - Provider: Martha Pelayo RN) 06 (Given - Provider: Emilia Reyna RN) 0622 (Given - Provider: Radha Davis RN) 9 mg, Oral, EVERY MORNING, First dose on Thu12/13/21 at 1815, Until Discontinued, DO NOT CRUSH OR OPEN, Routine dronabinoL (Marinol) capsule 5 mg 18 (Given - Provid er: Pati Gilbert RN)2006 (Given - Provider: Emilia Reyna RN) 845 (Given - Provider: Mark Patel RN)2099 (Given - Provider: Radha Davis RN) 09 (Given - Provider: Pati Gilbert RN) 5 mg, Oral, 2 TIMES DAILY, First dose on 12/14/21 at 1345, Until Discontinued, Routine flecainide (Tambocor) tablet 50 mg 19 (Given - Provi adam: Pati Gilbert RN)2006 (Given - Provider: Emilia Reyna RN) 846 (Given - Provider: Mark Patel RN)2099 (Given - Provider: Radha Davis RN) 09 (Given - Provider: Pati Gilbert RN) 50 mg, Oral, 2 TIMES DAILY, First dose o n Thu12/13/21 at 2100, Until Discontinued, Routine fluconazole (Diflucan) tablet 200 mg 0918 (Given - Pro vider: Pati Gilbert RN) 0847 (Given - Provider: Mark Patel RN) 0 904 (Given - Provider: Pati Gilbert RN) 200 mg, Oral, DAILY, First dose on Thu at 0900, Until Discontinued, DO NOT SPLIT, CRUSH OR OPEN, Routine heparin (porcine) (5,000 units/1 mL) subcutaneous inje ction 5,000 Units 0625 (Given - Provider: Martha Pelayo RN)1336 (Given - Provider: Pati Gilbert RN)2128 (Given - Provider: Emilia Reyna RN) 0634 (Given - Provider: Emilia Reyna RN)1439 (Given - Provider: Mark Patel RN)2102 (Given - Provider: Radha Davis RN) 0622 (Given - Provider: Radha Davis RN)1400 (Not Given - Provider: Pati Gilbert RN - Reason: See comment - Comment: dr. yost from team okay to not give due to discharge/car ride) 5,000 Units, Subcutaneous, EVERY 8 HOURS SCHEDULED, First dose on Thu12/13/21 at 2200, Until Discontinued, Routine loperamide (Imodium A-D) capsule 2 mg 0919 (Given - Pr ovider: Pati Gilbert RN)2006 (Given - Provider: Emilia Reyna RN) 08 (Given - Provider: Mark Patel RN)2099 (Given - Provider: Radha Davis RN) 0905 (Given - Provider: Pati Gilbert RN) 2 mg, Oral, 2 TIMES DAILY, First dose on Thu12/13/21 at 2100, Until Discontinued, Do not exceed 16 mg/day., Routine magnesium sulfate 2 g in sterile water 50 mL infusion (COMPLETED ) 0620 (New Bag - Provider: Radha Davis RN)0820 (Stopped - Provider: Pati Gilbert RN) 2 g, Intravenous, ONCE, 1 dose, On Thu at 0615, Administer over 120 Minutes metoprolol tartrate (Lopressor) tablet 25 mg 0919 (Giv en - Provider: Pati Gilbert RN) 0846 (Given - Provider: Mark Patel RN) 0 906 (Given - Provider: Pati Gilbert RN) 25 mg, Oral, DAILY, First dose on Sat at 0900, Until Discontinued, Routine nystatin (Mycostatin) (100,000 units/mL) oral liquid 5 00,000 Units 0918 (Given - Provider: Pati Gilbert RN)1335 (Given - Provider: Pati Gilbert RN)1643 (Given - Provider: Pati Gilbert RN)2006 (Given - Provider: Emilia Reyna RN) 0846 (Given - Provider: Mark Patel RN)1238 (Given - Provider: Mark Patel RN)1624 (Given - Provider: Mark Patel RN)2103 (Given - Provider: Radha Davis RN) 0906 (Given - Provider: Pati Gilbert RN)1409 (Given - Provider: Pati Gilbert RN) 500,000 Units, Oral, 4 TIMES DAILY, Firs t dose on Thu12/13/21 at 1815, Until Discontinued, Routine pantoprazole EC (Protonix) tablet 40 mg 0918 (Given - Provider: Pati Gilbert RN) 0847 (Given - Provider: Mark Patel RN) 0 904 (Given - Provider: Pati Gilbert RN) 40 mg, Oral, DAILY, First dose on Sat at 0900, Until Discontinued, DO NOT CRUSH OR OPEN, Routine rosuvastatin (Crestor) tablet 10 mg 0918 (Given - Prov ider: Pati Gilbert RN) 0847 (Given - Provider: Mark Patel RN) 0 905 (Given - Provider: Pait Gilbert RN) 10 mg, Oral, DAILY, First dose on Sat at 0900, Until Discontinued, Routine sodium chloride 0.9 % (flush) (BD PosiFlush Normal Arturo ine 0.9) flush 5 mL 09 (Given - Provider: Pati Gilbert RN)2007 (Given - Provider: Emilia Reyna RN) 08 (Given - Provider: Mark Patel RN)2107 (Not Given - Provider: Radha Davis RN - Reason: See comment - Comment: mediport infusing) 0900 (Given - Provider: Pati padilla RN) 5 mL, Intravenous, 2 TIMES DAILY, First dose on Thu12/13/21 at 2100, Until Discontinued, Routine tacrolimus (Prograf) (0.5 mg/mL) oral liquid 0.6 mg (C ANCELED) 924 (Given - Provider: Pati Gilbert RN)2006 (Given - Provider: Emilia Reyna RN) 08 (Given - Provider: Mark Patel RN) 0.6 mg, Oral, 2 TIMES DAILY, First dose on Thu12/13/21 at 2100, Until Discontinued, Routine tacrolimus (Prograf) capsule 0.5 mg 2099 (Given - Provider: Radha Davis RN) 903 (Given - Provider: Pati padilla RN) 0.5 mg, Oral, 2 TIMES DAILY, First dose on Thu12/16/21 at 2100, Until Discontinued, DO NOT SPLIT, CRUSH OR OPEN, Routine tamsulosin (Flomax) capsule 0.4 mg 2006 (Given - Provider: Sarahy Reyna RN) 2099 (Given - Provider: Radha Davis RN) 0.4 mg, Oral, NIGHTLY, First dose (after last modification) on Thu12/13/21 at 2100, Until Discontinued, DO NOT CRUSH OR OPEN, Routine vancomycin (Vancocin) capsule 125 mg 917 (Given - Pro vider: Pati Gilbert RN)2006 (Given - Provider: Emilia Reyna RN) 0846 (Given - Provider: Mark Patel RN)2099 (Given - Provider: Radha Davis RN) 904 (Given - Provider: Pati Gilbert RN) 125 mg, Oral, 2 TIMES DAILY, First dose on Thu12/13/21 at 2100, Until Discontinued, Routine Continuous Medication Order 12/15/2021 12/16/2021 12/17/2021 sodium chloride 0.9% infusion () 1638 (New Bag - Provider: Pati Gilbert RN) 0007 (New Bag - Provider: Emilia Reyna RN)1006 (New Bag - Provider: Lanny Krishnan RN) 100 mL/hr, Intravenous, CONTINUOUS, Star ting on Thu12/15/21 at 1500, Until Thu12/16/21 at 1459 sodium chloride 0.9% infusion () 1533 (New Bag - Provider: Mark Patel RN)2102 (New Bag - Provider: Radha Davis, SHARON) 0435 (New Bag - Provider: Radha Davis RN) 100 mL/hr, Intravenous, CONTINUOUS, Star ting on Thu12/16/21 at 1600, Until Thu12/17/21 at 0859 PRN Medication Order 12/15/2021 12/16/2021 12/17/2021 heparin (pf) (porcine) (100 units/mL) flush 5 mL syringe 500 Units (COMPLETED) 1410 (Given - Provider: Pati padilla RN) 500 Units (5 mL), Intravenous, DAILY PRN , 1 dose, Starting on Thu12/17/21 at 1329, Until Discontinued, Line Care, Terminal Flush for de-accessing of Implantable Port, Routine lidocaine (Xylocaine) 1% (10 mg/mL) injection 3 mg 3 mg (0.3 mL), Subcutaneous, ONCE PRN, 1 dose, Starting on Thu12/13/21 at 1716, Until Thu12/17/21 at 1730, for discomfort with PIV insertion, Routine magnesium sulfate 2 g in sterile water 50 mL infusion 2 g, Intravenous, DAILY PRN, Starting on Thu12/13/21 at 1125, Until Thu12/17/21 at 1730, Administer over 120 Minutes, hypomag post-stem cell transplant, Please give 2 gms for Magnesium less than 0.60 or less than the low end of normal at [facility] sodium chloride 0.9 % (flush) (BD PosiFlush Normal Saline 0.9) f lush 5-20 mL 5-20 mL, Intravenous, EVERY 1 MIN PRN, S tarting on Thu12/13/21 at 1716, Until Thu12/17/21 at 1730, flush, Flush pertains to all indwelling lines. [...] documented as of this encounter Care Teams Manifest/Order Organizer Print Orders Relationship Specialty Start Date End Date Beatriz Maurice PA PCP - General Family Medicine 05/06/21 [address] [place] [address] documented as of this encounter
--- OUTSIDE RECORDS SUMMARY | 2022-02-14 11:09 | XMS_ITS | Encounter Summary ---
:1960 Author Organization [facility] Address [address] [place] [address] Care Team Providers Name Role Phone Beatriz Maurice Primary Care Provider Encounter Details Date Type Department Care Team Description 12/06/2021 Orders Only Hematology and Oncology Parviz Modi MD at [facility] Catie narvaez HEMATOLOGY/[place] [address] [place] [address] [phone] (Wo rk) Social History Tobacco Use Types [...] and Oncology Parviz Modi MD [facility] DR HEMATOLOGY/[place] [address] Miroslava Pelayo APRN [facility] HEMATOLOGY/[place] [address] 02/24/2022 Office Visit Wound Care 02/24/2022 Appointment Hematology and Oncology 02/26/2022 Office Visit Neurology Leni Bustamante MD [facility] NEUROLOGY DEPT. [place], [place] [address] (Wo rk) documented as of this encounter Visit Diagnoses Not on filedocumented in this encounter Additional Health Concerns Infection Onset Date Last Indicated Resolved Time History of C. difficileComment: C. diffiicile 08/20/2021 testing positive 05/25/21. documented as of this encounter Care Teams Usability Specialist Relationship Specialty Start Date End Date Beatriz Maurice PA PCP - General Family Medicine 05/06/21 [address] [place] [address] documented as of this encounter
--- OUTSIDE RECORDS SUMMARY | 2022-02-14 11:09 | XMS_ITS | Encounter Summary ---
:1960 Author Organization [facility] Address [address] [place] [address] Care Team Providers Name Role Phone Beatriz Maurice Primary Care Provider Reason for Visit Reason Comments Specialty Pharmacy Review Venclexta Tablet Encounter Details Date Type Department Care Team Description 12/16/2021 Specialty Pharmacy Pharmacy at [facility] Izzy [facility] Review ([address] Tablet ) [place] [id number] Social History Tobacco Use Types Packs/Day Years [...] documented as of this encounter Progress Notes Izzy Hernandez - 12/16/2021 11:59 PM EDT The - [facility]ty Pharmacy has completed a benefits investigation for Herber Iverson Jr. to review their eligibility to fill at [facility]. Per patient's medication list they are prescribed Venclexta 100mg tablet and the medication is not able to be filled at the [facility]. Medication is currently being held. documented in this encounter Plan of Treatment Upcoming Encounters Date Type Specialty Care Team Description 02/18/2022 Infusion Hematology and Oncology 02/21/2022 Infusion Hematology and Oncology 02/24/2022 Appointment Hematology and Oncology 02/24/2022 Office Visit Hematology and Oncology Parviz Modi MD [facility] DR HEMATOLOGY/[place] [address] Miroslava Pelayo APRN [facility] DR HEMATOLOGY/[place] [address] 02/24/2022 Office Visit Wound Care 02/24/2022 Appointment Hematology and Oncology 02/26/2022 Office Visit Neurology Leni Bustamante MD [facility] DR NEUROLOGY DEPT. [place], [place] [address] (Wo rk) documented as of this encounter Visit Diagnoses Not on filedocumented in this encounter Additional Health Concerns Infection Onset Date Last Indicated Resolved Time History of C. difficileComment: C. diffiicile 08/20/2021 testing positive 05/25/21. documented as of this encounter Care Teams Surveillance Specialist Relationship Specialty Start Date End Date Beatriz Maurice PA PCP - General Family Medicine 05/06/21 [address] [place] [address] documented as of this encounter
--- OUTSIDE RECORDS SUMMARY | 2022-02-14 11:09 | XMS_ITS | Encounter Summary ---
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 ?? Herber has been struggling post transplant maintaining hydration He is only able to drink about 30-44oz fluid/day, poor appetite and oral intake (may have a piece of toast or egg for the entire day).He has overwhelming fatigue. Last night in a diaz to get to the bathroom he was incontinent and almostfell. He seemed a bit confused and went back to sleep. ?? Herber had his weekly appointment for labs, hydration and magnesium today in [facility] - Magnesium 2.3mg/dl (converted to 0.95mmol/L) and then after 700cc fluid decreased to 1.6mg/dl (converted to 0.66mmol/L. other labs potassium 5.1, bun/cr 44/32, alk phos 342 - labs reported by Daisy [facility]ERRERA/St. Herber received hydration only. We are very concerned about Herber's renal function as it has been elevated for weeks. ?? I've been in close contact with his life partner/caregiver, Morales. She is a strong advocate and caregiver but is meeting a lot of resistance from Herber. He just has no desire to eat or drink. ?? He no longer answers his phone when this RN calls so I communicate through Morales and she puts me on speaker phone. ?? Morales is unable to receive FMLA and has not worked for over a month. I've reached out to Nichelle Barnard to see if we can help her out in any way. ?? Dr. Modi would like Herber to come down to /[facility] tomorrow for labs, MD, infusions and possibly admission. A: Morales and Herber both communicated understanding of the plan. Appointment times were reviewed by this RN P: RTC 12/13 for 9am labs, 10am Ly/Annika, hydration/mag on at 3pm if needed AND/OR admit This RN will call [facility] infusion in the morning to see if they any openings between 11am and 2pm for plan outlined above on [facility]. documented in this encounter Plan of Treatment Upcoming Encounters Date Type Specialty Care Team Description 02/18/2022 Infusion Hematology and Oncology 02/21/2022 Infusion Hematology and Oncology 02/24/2022 Appointment Hematology and Oncology 02/24/2022 Office Visit Hematology and Oncology Parviz Modi MD [facility] DR HEMATOLOGY/[place] [address] Miroslava Pelayo APRN [facility] DR HEMATOLOGY/[place] [address] 02/24/2022 Office Visit Wound Care 02/24/2022 Appointment Hematology and Oncology 02/26/2022 Office Visit Neurology Leni Bustamante MD [facility] DR NEUROLOGY DEPT. [place], [place] [address] (Wo rk) documented as of this encounter Visit Diagnoses Not on filedocumented in this encounter Additional Health Concerns Infection Onset Date Last Indicated Resolved Time History of C. difficileComment: C. diffiicile 08/20/2021 testing positive 05/25/21. documented as of this encounter Care Teams Hypoid Gear Generator Relationship Specialty Start Date End Date Beatriz Maurice PA PCP - General Family Medicine 05/06/21 [address] [place] [address] documented as of this encounter
--- OUTSIDE RECORDS SUMMARY | 2022-02-14 11:09 | XMS_ITS | Encounter Summary ---
:1960 Author Organization [facility] [place] [address] Care Team Providers Name Role Phone Beatriz Maurice Primary Care Provider Encounter Details Date Type Department Care Team Description 12/13/2021 Notes Only Hematology and Oncology [place] [address] Social History Tobacco Use Types Packs/Day [...] as of this encounter Progress Notes Nichelle Barnard MSW - 12/13/2021 10:58 AM EDT [facility] gave Mickey a brochure and application for [facility] for Care, and a $20 gas card. SW Intervention: Other: [place] Choices for Care [place]Long-[place] Medicaid) documented in this encounter Plan of Treatment Upcoming Encounters Date Type Specialty Care Team Description 02/18/2022 Infusion Hematology and Oncology 02/21/2022 Infusion Hematology and Oncology 02/24/2022 Appointment Hematology and Oncology 02/24/2022 Office Visit Hematology and Oncology Parviz Modi MD [facility] DR HEMATOLOGY/[place] [address] Miroslava Pelayo APRN [facility] DR HEMATOLOGY/[place] [address] 02/24/2022 Office Visit Wound Care 02/24/2022 Appointment Hematology and Oncology 02/26/2022 Office Visit Neurology Leni Bustamante MD [facility] DR NEUROLOGY DEPT. [place], [place] [address] (Wo rk) documented as of this encounter Visit Diagnoses Not on filedocumented in this encounter Additional Health Concerns Infection Onset Date Last Indicated Resolved Time History of C. difficileComment: C. diffiicile 08/20/2021 testing positive 05/25/21. documented as of this encounter Care Teams Running Instructor Relationship Specialty Start Date End Date Beatriz Maurice PA PCP - General Family Medicine 05/06/21 [address] [place] [address] documented as of this encounter
--- OUTSIDE RECORDS SUMMARY | 2022-02-14 11:09 | XMS_ITS | Encounter Summary ---
:1960 Author Organization [facility] [place] [address] Care Team Providers Name Role Phone Beatriz Maurice Primary Care Provider Reason for Visit Reason Onset Date Comments Medical Care Coordination 12/18/2021 Encounter Details Date Type Department Care Team Description 12/18/2021 Telephone Hematology and Oncology Yazmin Ramirez, [place] [facility] [place] [phone] Social History Tobacco Use Types Packs/Day [...] Telephone Encounter - Yazmin Ramirez, RN - 12/18/2021 1:17 PM EDT RN received request from Dr Yost, jimi STEPHENSON, to cancel IVF on 12/19 at [facility]. Pt has been scheduled for 12/20 at [facility]. Pt has his labs drawn QThursdays at [facility] and then goes to [facility] for IVF. Spoke to Krystin at [facility] Infusion (phone [phone]) and Vero at [facility] (phone [phone]) and cancelled labs/IVF for 12/19/21 locally. Discussed that he would resume labs and infusions/lyte replacement on 12/26/21. RN will continue to follow and coordiante care. documented in this encounter Plan of Treatment Upcoming Encounters Date Type Specialty Care Team Description 02/18/2022 Infusion Hematology and Oncology 02/21/2022 Infusion Hematology and Oncology 02/24/2022 Appointment Hematology and Oncology 02/24/2022 Office Visit Hematology and Oncology Parviz Modi MD [facility] DR HEMATOLOGY/[place] [address] Miroslava Pelayo APRN [facility] DR HEMATOLOGY/[place] [address] 02/24/2022 Office Visit Wound Care 02/24/2022 Appointment Hematology and Oncology 02/26/2022 Office Visit Neurology Leni Bustamante MD [facility] DR NEUROLOGY DEPT. [place], [place] [address] (Wo rk) documented as of this encounter Visit Diagnoses Not on filedocumented in this encounter Additional Health Concerns Infection Onset Date Last Indicated Resolved Time History of C. difficileComment: C. diffiicile 08/20/2021 testing positive 05/25/21. documented as of this encounter Care Teams Substitute Bus Driver Relationship Specialty Start Date End Date Beatriz Maurice PA PCP - General Family Medicine 05/06/21 [address] [place] [address] documented as of this encounter
--- OUTSIDE RECORDS SUMMARY | 2022-02-14 11:09 | XMS_ITS | Encounter Summary ---
:1960 Author Organization [facility] Address [place] [address] Care Team Providers Name Role Phone Beatriz Maurice Primary Care Provider Encounter Details Date Type Department Care Team Description 12/20/2021 Hospital Encounter Hematology and Hypomag nesemia; Oncology at [facility] STACIE (acute kidney injury); [facility] H/O Clost ridium difficile infection; Drive Colostomy in place; [place] [address] Acute leukemia in remission; [phone] Anemia in neopl astic disease; Weakness acquir [...] End Date Colostomy Belt Dispense 1 [employer] 1 each 11 2 (Ostomy Belt Medium) [...] prior to access. Ostomy Supplies [facility] Dispense 2 boxes ( 20 each 11 022 10/box) of [employer] Barrier rings #[id number] per month. Ostomy Supplies Dispense 1 bottle of 28.3 g 5 08/20/2021 Powder Adapt stoma powder #[id number] every other month. Ostomy Supplies [facility] Dispense 2 boxes 20 each 11 2 (10/box) of [employer] Soft Convex One-piece Pouch #[id number] per month. Ostomy Supplies [facility] Dispense 2 boxes 40 each 11 2 (20/box) of Brava Elastic Barrier strips #[id number] per month. Ostomy Supplies [facility] Dispense 1 box 50 each 08/20/2021 [...] Oncology 02/24/2022 Office Visit Hematology and Oncology Praviz Modi MD [facility] DR HEMATOLOGY/[place] [address] Miroslava Pelayo APRN [facility] [address] HEMATOLOGY/[place] [address] 02/24/2022 Office Visit Wound Care 02/24/2022 Appointment Hematology and Oncology 02/26/2022 Office Visit Neurology Leni Bustamante MD [facility] DR NEUROLOGY DEPT. 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 Weakness acquired in ICU S/P allogeneic bone marrow transplan t Dehydration Comprehensive metabolic Lab Routine Hypomagn esemia 1 Occurrences starting panel (non-fasting) STACIE (acute kidney 01/2022 until injury) 12/20/2021 H/O Clostridium 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 Weakness acquired in ICU S/P allogeneic bone marrow transplan t Dehydration CBC (with Diff) Lab STAT Hypomagnesemia 1 Occurrences starting STACIE (acute kidney 12/20/2021 until injury) 12/20/2021 H/O Clostridium 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 in neoplastic disea se Weakness acquired in ICU S/P allogeneic bone marrow transplan t Dehydration DIFFERENTIAL, STAT 12/20/2021 9:35 AM Hypomagnesemi a Results for this AUTOMATED EDT STACIE (acute kidney procedure are in injury) the results H/O Clostridium section. 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 in neoplastic disea se Weakness acquired in ICU S/P allogeneic bone marrow transplan t Dehydration HC FK-506 (TACROLIMUS) STAT 12/20/2021 9:35 AM Hypoma gnesemia Results for this EDT STACIE (acute kidney procedure are in injury) the results H/O Clostridium section. 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 in neoplastic disea se Weakness acquired in ICU S/P allogeneic bone marrow transplan t Dehydration HC CMV QUANT Routine 12/20/2021 9:35 AM S/P allogeneic bone Re sults for this EDT marrow transplant procedure are in the results section. HC CBC,PLT & AUTO DIFF STAT 12/20/2021 9:35 AM Hypoma gnesemia EDT STACIE (acute kidney injury) H/O Clostridium 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 in neoplastic disea se Weakness acquired in ICU S/P allogeneic bone marrow transplan t Dehydration HC MAGNESIUM, SERUM Routine 12/20/2021 9:35 AM Hypomagne semia Results for this EDT STACIE (acute kidney procedure are in injury) the results H/O Clostridium section. 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 in neoplastic disea se Weakness acquired in ICU S/P allogeneic bone marrow transplan t Dehydration HC IGG, SERUM Routine 12/20/2021 9:35 AM S/P allogeneic bone R esults for this EDT marrow transplant procedure are in the results section. COMPREHENSIVE Routine 12/20/2021 9:35 AM Hypomagnesemi a Results for this METABOLIC PANEL EDT STACIE (acute kidney procedu re are in (NON-FASTING) injury) the results H/O Clostridium section. 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 in neoplastic disea se Weakness acquired in ICU S/P allogeneic bone marrow transplan t Dehydration documented in this encounter Results (ABNORMAL) Differential, Automated (12/20/2021 9:35 AM EDT) [facility] Method Time Signature Neutrophils % 77.3 % [facility] Neutr Abs (ANC) 7.51 (H) 1.70 - [facility] 6.10 [facility] x10(3)/[facility] Lymphocytes % 10.4 % [facility] Lymphocytes Abs 1.0 0.9 - 3.2 [facility] x10(3)/[facility] LABORATORY Monocytes % 7.9 % [facility] Monocyte Abs 0.8 0.3 - 0.9 [facility] x10(3)/[facility] LABORATORY Eosinophils % 3.1 % [facility] Eosinophils Abs 0.3 0.0 - 0.4 [facility] x10(3)/[facility] LABORATORY Basophils % 0.5 % [facility] Basophils Abs 0.0 0.0 - 0.1 [facility] x10(3)/[facility] LABORATORY Immature Gran % 0.80 % [facility] Comment: Immature granulocytes(IG's)percentage an d absolute count will include metamyelocytes, myelocytes, and promyelo cytes. Blood smears from CBCs yielding IG's will be scanned manually for concor dance. If this scan disagrees with the automated IG or if promyelocytes are not ed, a manual differential will be performed. Zara Gran Abs 0.08 (H) 0.00 - 0.04 x10(3)/[facility] LABORATORY Specimen Anatomical Collection Method Collection Time Receive d Time (Source) Location / / Volume Laterality Blood 12/20/2021 9:35 AM 9:51 EDT AM EDT Resulting Agency Comment Spec In Lab Parviz Modi MD HEMATOLOGY ORDERABLES Performing Organization Address City/State/[place] [address] (ABNORMAL) Hemogram (12/20/2021 9:35 AM EDT) Analysis Performed At Patho logist Time Signature WBC 9.7 (H) 4.0 - 9.5 [facility] x10(3)/[facility]ORATORY RBC 2.83 (L) 4.58 - [facility] 5.54 [facility] x10(6)/[facility]ORATORY Hemoglobin 9.5 (L) 13.7 - [facility] 16.5 g/dL [facility] Hematocrit 28.0 (L) 40.5 - [facility] 48.5 % [facility] MCV 98.9 (H) 82.9 - [facility] 93.1 [facility] MCH 33.6 (H) 27.5 - [facility] 32.1 pg [facility] MCHC 33.9 32.0 - [facility] 35.7 g/dL [facility] Platelets 61 (L) 145 - 357 [facility] x10(3)/[facility] LABORATORY RDWSD 72.2 (H) 36.0 - [facility] 45.0 [facility] RDWCV 20.2 (H) 11.4 - [facility] 13.8 % [facility] MPV 12.1 7.6 - 12.9 [facility] LABORATORY nRBC % Auto 0.0 % [facility] nRBC Abs Auto 0.000 0.000 - [facility] ARASELI 0.000 [facility] x10(3)/[facility] LABORATORY Specimen Anatomical Collection Method Collection Time Receive d Time (Source) Location / / Volume Laterality Blood 12/20/2021 9:35 AM 2 9:51 EDT AM EDT Resulting Agency Comment Spec In Lab Parviz Modi MD HEMATOLOGY ORDERABLES Performing Organization Address City/[facility]/ZIP Code Phon e Number JIA [place] [id number] [facility] Drive CMV PCR, Quantitative (12/20/2021 9:35 AM EDT) Patholo gist Method Time Signature CMV Quant Not Detected Not Detected JIA (Numeric) IU/mL [facility] Comment: Indication for Study: Monitoring CMV [...] (Source) Location / / Volume Laterality Blood 12/20/2021 9:35 AM 2 8:06 EDT AM EDT Resulting Agency Comment Spec In Lab Parviz Modi MD IMMUNOLOGY ORDERABLES Performing Organization Address City/[facility]/[place] [address] [facility] [address] IgG (12/20/2021 9:35 AM EDT) P athologist Signature IgG 1,111 700 - 1,600 [facility] mg/dL [facility] Comment: Pediatric Reference Intervals obtained f rom the Caliper Reference Interval project. http://www.sickkids.ca/caliperp roject/index.html Specimen Anatomical Collection Method Collection Time Receive d Time (Source) Location / / Volume Laterality Blood 12/20/2021 9:35 AM 2 9:51 EDT AM EDT Resulting Agency Comment Spec In Lab Parviz Modi MD IMMUNOLOGY ORDERABLES Performing Organization Address City/State/[place] [address] (ABNORMAL) Comprehensive metabolic panel (non-fasting) (12/20/2021 9:35 AM EDT) P athologist Signature Glucose Lvl 101 65 - 199 [facility] mg/dL [facility] Comment: Diabetes: >=200 mg/dL plus symp toms BUN 21 (H) 10 - 20 mg/dL [facility] Creatinine 1.47 0.80 - 1.50 mg/dL [facility] Sodium 138 135 - 145 mmol/L [facility] Potassium 4.1 3.5 - 5.0 mmol/L [facility] Comment: Please note: ??Patients with WBC >100,00 0 may have falsely elevated Potassium levels. ??For accurate Potassium quantif ication in these patients send serum separator tube (gold top) for subsequent determinations. ??Contact the Clinical Chemistry Laboratory if there are any qu estions. Chloride 107 98 - 107 mmol/L [facility] CO2 19 (L) 22 - 31 mmol/L [facility] Anion Gap 12 5 - 15 mmol/L [facility] Calcium 9.3 8.5 - 10.5 mg/dL [facility] Total Protein 6.6 6.1 - 8.0 g/dL [facility] Albumin 3.9 3.2 - 5.2 g/dL [facility] AST 22 0 - 39 unit/L [facility] ALT 20 0 - 55 unit/L [facility] Alk Phos 178 (H) 40 - 130 unit/L [facility] Total Bilirubin 0.5 0.2 - 1.3 mg/dL [facility] Estimated GFR 51 (L) >=60 mL/min/1.73 m?? [facility] Comment: This patient? s estimated glomerular filtration rate (eGFR) is between 51 mL/min/1.73 m2 (patients with less muscl e mass per kg body weight) and 59 mL/min/1.73 m2 (patients with more muscl e [...] (Source) Location / / Volume Laterality Blood 12/20/2021 9:35 AM 2 9:51 EDT AM EDT Resulting Agency Comment Spec In Lab Parviz Modi MD CHEMISTRY ORDERABLES Performing Organization Address City/State/[place] [address] (ABNORMAL) Magnesium (12/20/2021 9:35 AM EDT) P athologist Signature Magnesium 0.57 (L) 0.69 - 1.07 [facility] mmol/L [facility] Specimen Anatomical Collection Method Collection Time Receive d Time (Source) Location / / Volume Laterality Blood 12/20/2021 9:35 AM 2 9:51 EDT AM EDT Resulting Agency Comment Spec In Lab Parviz Modi MD CHEMISTRY ORDERABLES Performing Organization Address City/State/[place] [address] Tacrolimus level (12/20/2021 9:35 AM EDT) P athologist Signature Tacrolimus Lvl 2.4 ng/mL [facility] Comment: Trough therapeutic range is 3-15 ng/mL, depending upon transplant type, time since transplantation, use of other immu nosuppressive drugs, comorbidities, and test method used. Tacrolimus concentration determined usfreddy g the [employer] Tacrolimus electrochemiluminescence competitive imm unoassay. Results from different samples types and methods are not interchangeable. Specimen Anatomical Collection Method Collection Time Receive d Time (Source) Location / / Volume Laterality Blood 12/20/2021 9:35 AM 9:51 EDT AM EDT Resulting Agency Comment Spec In Lab Parviz Modi MD CHEMISTRY ORDERABLES Performing Organization Address City/State/[place] [address] documented in this encounter [...] sodium chloride 0.9 % (flush) (BD Given 12/20/2021 1:21 PM EDT 2 0 mLs PosiFlush Normal Saline 0.9) flush 10-20 mL 10-20 mL, Intravenous, EVERY 1 MIN PRN, Starting on 12/20/21 at 0920, Until 12/21/21 at 0433, [employer], Routine Given 12/20/2021 9:42 AM EDT 20 mLs documented in this encounter Additional Health Concerns Infection Onset Date Last Indicated Resolved Time History of C. difficileComment: C. diffiicile 08/20/2021 testing positive 05/25/21. 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
--- OUTSIDE RECORDS SUMMARY | 2022-02-14 11:09 | XMS_ITS | Encounter Summary ---
:1960 Author Organization [facility] Address [facility] [address] [place] [address] Care Team Providers Name Role Phone Beatriz Maurice Primary Care Provider Reason for Visit Reason Comments Pain Feet, leg, back. Encounter Details Date Type Department Care Team Description 12/09/2021 Office Visit Hematology and Radha Osullivan MD [facility] [address] HEMATOLOGY/[place] [address] S/P allogeneic bone marrow transplant; Oncology at [place] Miroslava Pelayo BILLING REPRESENTATIVE [facility] [address] HEMATOLOGY/[place] [address] STACIE (acute kidney injury); [facility] Hayley Palmer BILLING REPRESENTATIVE [facility] HEMATOLOGY[place] [address]; Drive Anemia in neoplastic disease ; [place], [place] Dehydration; [id number] Thrombocytopenia; [phone] Hypomagnesemia; Acute leukemia in remission; Weakness acquir ed in ICU; Debility Social History Tobacco Use Types Packs/Day [...] Sign Reading Time Taken Comments Blood Pressure 106/79 12/09/2021 11:30 AM EDT Pulse 80 12/09/2021 11:30 AM EDT Temperature 36.2 ??C (97.2 ??F) 12/09/2021 11:30 AM EDT Respiratory Rate - - Oxygen Saturation 100% 12/09/2021 11:30 AM EDT Inhaled Oxygen Concentration - - Weight 93.1 kg (205 lb 3.2 oz) 12/09/2021 11:33 AM EDT Height - - Body Mass Index 29.38 12/05/2021 1:39 PM EDT documented in this encounter Progress Notes Dilshad Osullivan MD - 12/09/2021 11:15 AM EDT HEMATOLOGY/BMT CONSULTATION VISIT NOTE CHIEF COMPLAINT: Herber Iverson Jr. is a 61 y.o. male originally referred by Dr. Dilshad Osullivan for evaluation of leukemia. He is seen in follow-up today. Data Review (From Recent Hospital discharge summary and the EMR) Admitted to [facility] 04/29/21 for leukocytosus. Discharged 04/30/21 04/30/21 [...] [place] [address]/10,000 ABL1 copies (135.80%.) 08/08/21 Discharged after reinduction with gilteritinib and venetoclax and initial clearance of CLIENT SERVICES ADMINISTRATOR leukemia. 08/12/21 LP - FELY 08/26/21 LP [...] Date NPM1 HSCT Day Source Total PMN [place] 05/21/21 43% 08/06/21 135% 09/12/21 1.95% 11/22/21 +31 PB >95% na na 12/23/21 +62 ORIGINAL HISTORY OF PRESENT ILLNESS Herber Iverson Jr. dates the onset of his illness to earlier this summer. He has felt more tired than usual but attributed it to the humidity. About 3 weeks ago his fatigue was so bad that he went to a clinic in [facility]. He was evaluated for a UTI that was negative. 1 week ago today he saw his PCPwho ended up gatting a CBC showing abnormal counts and he was admitted to [facility]. Other than fatigue has had no fevers, chills or drenching sweats. Has lost a few lbs - <10. Appetite has been down recently. No bleeding or bruising. Was very actived when younger - played a lot of sports into his 40's. 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 He is accompanied today by his partner Morales. Herber continues to be severely debilitated post HSCT. He spends most of the day resting but does get out of bed and is able to move about the house. Fluid intake has improved overall but some days still below target of 50- 60 oz, more like 30- 40 oz per day per Morales's records. Appetite still poor and food still tastes abnormal. Previous nausea and vomiting have improved over the last week. Does feel stronger after fluid boluses. No F/C/S or sxs of GVHD - no rashes, nausea improved. Stool output a little more solid. Current tacrolimus dose: 0.5 mg a.m. & [...] carrying and loading. 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 Social - has a girlfriend and his [...] PICHARDO: as above Gastrointestinal --Appetite: low --Nausea/vomiting/diarrhea/constipation: occ dry heaves Genitourinary --Dysuria or hematuria: No Musculoskeletal --Muscle pain or weakness: diffuse weakness due to deconditioning --Joint pain or swelling: No Immune System --Recent infections: No Hematology/Lymph --Bruising/bleeding/melena: No --Enlarged nodes or other masses: No Skin --Rashes or petechiae: residual petechial rash on legs and trunk Other ROS: All negative PROBLEM LIST Patient Active Problem List Diagnosis Code ??? Acute leukemia C95.00 ??? Clostridium difficile colitis A04.72 ??? 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 AML (acute myeloblastic leukemia) C92.00 ??? Paroxysmal atrial fibrillation I48.0 ??? GERD (gastroesophageal reflux disease) K21.9 ??? BPH (benign prostatic hyperplasia) N40.0 ??? S/P allogeneic bone marrow transplant Z94.81 ??? STACIE (acute kidney injury) N17.9 ??? Dehydration E86.0 ??? Hypomagnesemia E83.42 MEDICATIONS Current Outpatient Medications Medication Instructions ??? acyclovir (ZOVIRAX) 800 mg, Oral, 2 TIMES DAILY ??? aspirin 81 mg, Oral, DAILY ??? Colostomy Belt (Ostomy Belt Medium) [facility] Dispense 1 Sensura Flako Belt #[id number] per month. ??? flecainide (TAMBOCOR) 50 mg, Oral, 2 TIMES DAILY ??? fluconazole (DIFLUCAN) 400 mg, Oral, DAILY ??? gabapentin (NEURONTIN) 200 mg, Oral, 3 TIMES DAILY ??? gilteritinib (XOSPATA) 120 mg, Oral, DAILY, Call clinic before starting medication. ??? lidocaine-prilocaine (EMLA) Cream Apply to mediport approximately 30 minutes prior to access. ??? loperamide (IMODIUM A-D) 2 mg, Oral, 3 TIMES DAILY ??? Magnesium Oxide-Mg AA Chelate (Mg-Plus) 133 mg Tablet 399 mg, Oral, 3 TIMES DAILY ??? metoprolol succinate XL (TOPROL-XL) 50 mg, Oral, DAILY ??? metoprolol tartrate (LOPRESSOR) 25 mg, Oral, DAILY ??? ondansetron (ZOFRAN) 8 mg, Oral, EVERY 8 HOURS PRN ??? Ostomy Supplies Misc Dispense 2 boxes ( 10/box) of [employer] Barrier rings #[id number] per month. ??? Ostomy Supplies Misc Dispense 2 boxes (10/box) of Sensura [place] Soft Convex One-piece Pouch #[id number] month. ??? Ostomy Supplies Misc Dispense 2 boxes (20/box) of Brava Elastic Barrier strips #[id number] per month. ??? Ostomy Supplies Misc Dispense 1 box (50/box) of a generic no-sting skin barrier wipe per month. ??? Ostomy Supplies Powder Dispense 1 bottle of Adapt stoma powder #7906 every other month. ??? pantoprazole EC (PROTONIX) 40 mg, Oral, DAILY ??? rosuvastatin (CRESTOR) 40 mg, Oral, DAILY ??? sulfamethoxazole-trimethoprim DS (Bactrim DS) 800-160 mg Tablet 1 tablet, Oral, THREE TIMES WEEKLY, Please start on 11/21. Take 3 time a week on Thursday, Thursday, and Thursday ??? tacrolimus (PROGRAF) 1 mg, Oral, NIGHTLY ??? tacrolimus (PROGRAF) 0.5 mg, Oral, 2 TIMES DAILY ??? tamsulosin (FLOMAX) 0.4 mg, Oral, DAILY ??? vancomycin (VANCOCIN) 125 mg, Oral, 2 TIMES DAILY ALLERGIES/ADR Allergies Allergen Reactions ??? Other [Unclassified Drug] Other (See Comments) Artificial Sweetners-lightheadedness, dizziness ??? Bactoshield Chg [Chlorhexidine Gluconate] Itching and Rash CHG wipes reported he gets a rash and is itchy. PHYSICAL EXAM VITAL SIGNS: Blood pressure 106/79, pulse 80, temperature 36.2 ??C (97.2 ??F), weight 93.1 kg (205 lb 3.2 oz), SpO2 100 %. GENERAL: Herber Iverson Jr. is a tired and chronically ill-appearing 61 y.o. year old male in no acutedistress. ENT: Sinuses non-tender. Oropharynx clear. No masses. No thrush. ENDOCRINE: No thyromegaly palpated. CARDIOVASCULAR: Heart with [...] hour(s)) IgG Result Value Ref Range IgG 1,326 700 - 1,600 mg/dL Tacrolimus level Result Value Ref Range Tacrolimus Lvl 6.8 ng/mL Comprehensive metabolic panel (non-fasting) Result Value Ref Range Glucose Lvl 110 65 - 199 mg/dL BUN 35 (H) 10 - 20 mg/dL Creatinine 2.85 (H) 0.80 - 1.50 mg/dL Sodium 134 (L) 135 - 145 mmol/L Potassium 5.3 (H) 3.5 - 5.0 mmol/L Chloride 101 98 - 107 mmol/L CO2 17 (L) 22 - 31 mmol/L Anion Gap 16 (H) 5 - 15 mmol/L Calcium 9.6 8.5 - 10.5 mg/dL Total Protein 7.4 6.1 - 8.0 g/dL Albumin 4.0 3.2 - 5.2 g/dL AST 22 0 - 39 unit/L ALT 22 0 - 55 unit/L Alk Phos 453 (H) 40 - 130 unit/L Total Bilirubin 0.5 0.2 - 1.3 mg/dL Estimated GFR 23 (L) >=60 mL/min/1.73 m?? Magnesium Result Value Ref Range Magnesium 0.68 (L) 0.69 - 1.07 mmol/L Hemogram Result Value Ref Range WBC 10.7 (H) 4.0 - 9.5 x10(3)/mcL RBC 2.99 (L) 4.58 - 5.54 x10(6)/mcL Hemoglobin 9.7 (L) 13.7 - 16.5 g/dL Hematocrit 29.5 (L) 40.5 - 48.5 % MCV 98.7 (H) 82.9 - 93.1 fL MCH 32.4 (H) 27.5 - 32.1 pg MCHC 32.9 32.0 - 35.7 g/dL Platelets 87 (L) 145 - 357 x10(3)/mcL RDWSD 74.6 (H) 36.0 - 45.0 fL RDWCV 21.7 (H) 11.4 - 13.8 % MPV 12.4 7.6 - 12.9 fL nRBC % Auto 0.3 % nRBC Abs Auto 0.030 (H) 0.000 - 0.000 x10(3)/mcL Differential, Automated Result Value Ref Range Neutrophils % 71.3 % Neutr Abs (ANC) 7.62 (H) 1.70 - 6.10 x10(3)/mcL Lymphocytes % 12.1 % Lymphocytes Abs 1.3 0.9 - 3.2 x10(3)/mcL Monocytes % 9.1 % Monocyte Abs 1.0 (H) 0.3 - 0.9 x10(3)/mcL Eosinophils % 5.5 % Eosinophils Abs 0.6 (H) 0.0 - 0.4 x10(3)/mcL Basophils % 1.0 % Basophils Abs 0.1 0.0 - 0.1 x10(3)/mcL Immature Gran % 1.00 % Zara Gran Abs 0.11 (H) 0.00 - 0.04 x10(3)/mcL RADIOLOGY - [...] --Herber's colostomy has been functioning well --stool firmness improved over last week but still mostly watery. 3. Renal --Creatinine remains elevated due to inadequate --Mag just below nl on current oral dosing -- Fluconazole dose-reduced to 200 mg / day --Continue to hold Bactrim Renal Impairment Dosing ACV: CrCl <25 -> 400 mg BID; CrCl <10 -> 200 mg BID Bactrim: CrCl 15-30 -> 1 DS daily; <15 1 DS QOD or hold Fluconazole: CrCl <50 -> 200 mg daily 5. ID --Course of nystatin for thrush 11/25/21 - improved --CMV and EBV PCRs remain negative --IVIg remains >400 so IVIg not needed [...] SOP. 4. GVHD Skin - none Gut - none Liver - none Other - none Current Grade - 0 Current Prophylaxis - Tacroilimus 5. Deconditioning --Herber is trying to move around more at home --Continue to use walker for safety 6. Counseling Reviewed with Here[facility] and Morales that progress typically feels (and is) slow at this time but that Herber is within what is expected for this stage of the post- transplant process. 7. Summary of Plans ?? 1 liter of normal saline today ?? 1 gram Mag IV today ?? Continue Tacrolimus at 0.5 mg BID - level within target range today. ?? HOLD Bactrim due to STACIE - will need pentamidine ?? Continue Fluconazole at 200 mg / day ?? 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 ?? Continue Mag 3 tabs TID - will try dissolving to make easier to take. ?? Increase fluid intake at home as much as possible ?? Stay active at home ?? Day ~+60 BM Bx - scheduled for 12/23/21 - orders are in including chimerism and NPM1 MRD testing. ?? --Per Tino et al, Blood 2020 plan to add Idhifa at ~day +60. ?? --Lab appt for prior to fluids at [facility] ?? --Will ask Nichelle to call re support for Morales being out of work. ?? Immunizations at 6 months ?? Follow up at [facility] w/ labs, IV fluids, Mag on ?? Follow up on 1 week w/ labs, clinic visit, infusion time DILSHAD OSULLIVAN MD Section of Hematology [facility] documented in this encounter Plan of Treatment Upcoming Encounters Date Type Specialty Care Team Description 02/18/2022 Infusion Hematology and Oncology 02/21/2022 Infusion Hematology and Oncology 02/24/2022 Appointment Hematology and Oncology 02/24/2022 Office Visit Hematology and Oncology Dilshad Osullivan MD [facility] [address] HEMATOLOGY/[place] [address] Miroslava Pelayo APRN [facility] [address] HEMATOLOGY/[place] [address] 02/24/2022 Office Visit Wound Care 02/24/2022 Appointment Hematology and Oncology 02/26/2022 Office Visit Neurology Leni Bustamante MD [facility] ER DR NEUROLOGY DEPT. [place], [place] [address] (Wo rk) documented as of this encounter Visit Diagnoses Diagnosis S/P allogeneic bone marrow transplant Bone marrow replaced by transplant STACIE (acute kidney injury) Acute kidney failure, unspecified 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 status Anemia in neoplastic disease Dehydration Thrombocytopenia Thrombocytopenia, unspecified Hypomagnesemia Disorders of magnesium metabolism Acute leukemia in remission Acute leukemia of unspecified cell type in remission Weakness acquired in ICU Debility Debility, unspecified documented in this encounter Additional Health Concerns Infection Onset Date Last Indicated Resolved Time History of C. difficileComment: C. diffiicile 08/20/2021 testing positive 05/25/21. documented as of this encounter Care Teams Vamp Liner Relationship Specialty Start Date End Date Beatriz Maurice PA PCP - General Family Medicine 05/06/21 [address] [place] [address] documented as of this encounter
--- OUTSIDE RECORDS SUMMARY | 2022-02-14 11:09 | XMS_ITS | Encounter Summary ---
:1960 Author Organization [facility] Address [address] [place] [address] Care Team Providers Name Role Phone Beatriz Maurice Primary Care Provider Encounter Details Date Type Department Care Team Description 12/09/2021 Hospital Encounter Hematology and S/P all ogeneic bone marrow transplant; Oncology at [facility] Hypomagnesemia; [facility] STACIE (acut e kidney injury); Drive [facility] [place] [address]; [phone] Acute leukemia in remission; Anemia in neopl astic disease; Weakness acquir ed in ICU; Dehydration Social History Tobacco Use Types Packs/Day [...] Sig Dispensed Refills Start Date End Date metoprolol tartrate Take 1 tablet by mouth [...] of Sensura Flako Soft Convex One-piece Pouch #[id number] per month. Ostomy Supplies Misc Dispense 2 boxes 40 each 2 (20/box) of Brava Elastic Barrier strips #[id number] per month. Ostomy Supplies Misc Dispense 1 box 50 each 08/20/2021 (50/box) of a generic no-sting skin barrier wipe per month. acyclovir (ZOVIRAX) Take 4 capsules by 240 capsule 3 022 02/03/2022 200 mg Capsule mouth 2 times daily. tacrolimus (Prograf) Take 1 capsule by 60 capsule 3 12/03/19 22 01/14/2022 0.5 mg mouth 2 times daily. CapsuleIndications: Acute myeloid leukemia in remission Magnesium Oxide-Mg AA Take 3 tablets by 270 tablet 3 022 12/12/2021 Chelate (Mg-Plus) 133 mouth 3 times daily. mg Tablet metoprolol succinate Take 1 tablet by mouth 30 tablet 5 11/202112/13/2021 XL (Toprol-XL) 50 mg daily. Tablet Sustained Release 24 hr vancomycin (Vancocin) Take 1 capsule by 60 capsule 5 022 02/03/2022 125 mg Capsule mouth 2 times daily. sulfamethoxazole-trim Take 1 tablet by mouth 12 tablet 5 12/13/2021 ethoprim DS (Bactrim three times a week. DS) 800-160 mg Tablet Please start on 11/21. Take 3 time a week on Thursday, Thursday, and Thursday fluconazole Take 2 tablets by 60 tablet 0 11/16/20212021 (Diflucan) 200 mg mouth daily for 30 Tablet days. pantoprazole EC Take 1 tablet by mouth 90 tablet 3 11/17/19 22 02/03/2022 (Protonix) 40 mg daily. Tablet, Delayed Release (E.C.) gabapentin Take 2 capsules by 90 capsule 12 11/15/20212021 (Neurontin) 100 mg mouth 3 times daily. Capsule tacrolimus (Prograf) Take 1 capsule by 30 capsule 0 11/16/19 22 12/13/2021 1 mg mouth nightly for 30 CapsuleIndications: days. Acute myeloid leukemia in remission rosuvastatin Take 1 tablet by mouth 90 tablet 3 11/15/2021 02/10/2022 (Crestor) 40 mg daily. Tablet aspirin 81 mg Tablet, Take 81 mg by mouth 30 tablet 3 11/1502/03/2022 Chewable daily. gilteritinib Take 3 tablets (120 90 tablet 0 08/27/2021 (Xospata) 40 mg mg) by mouth daily. tabletIndications: Call clinic before acute myeloid starting medication. 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 Progress Notes Christine Patterson RN - 12/09/2021 10:34 AM EDT Patient Name: Herber Iverson Jr. Patient Age: 61 y.o. Birthdate: 1960 Admit date: 12/09/2021 Attending Physician: No att. providers found Access visit. See MAR and/or flowsheet. documented in this encounter Plan of Treatment Upcoming Encounters Date Type Specialty Care Team Description 02/18/2022 Infusion Hematology and Oncology 02/21/2022 Infusion Hematology and Oncology 02/24/2022 Appointment Hematology and Oncology 02/24/2022 Office Visit Hematology and Oncology Parviz Modi MD [facility] DR HEMATOLOGY/[place] [address] Miroslava Pelayo APRN [facility] DR HEMATOLOGY/[place] [address] 02/24/2022 Office Visit Wound Care 02/24/2022 Appointment Hematology and Oncology 02/26/2022 Office Visit Neurology Leni Bustamante MD [facility] DR NEUROLOGY DEPT. [place], [place] [address] (Wo rk) documented as of this encounter Procedures Procedure Name Priority Date/Time Associated Comments Diagnosis HEMOGRAM STAT 12/09/2021 10:50 Hypomagnesemia Results for this AM EDT STACIE (acute kidney procedure are in injury) the results H/O Clostridium section. 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 HC FK-506 (TACROLIMUS) Routine 12/09/2021 10:50 S/P allogeneic bone Results for this AM EDT marrow transplant procedure are in the results section. HC CMV QUANT Routine 12/09/2021 10:50 S/P allogeneic bone Resu lts for this AM EDT marrow transplant procedure are in the results section. 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 COMPREHENSIVE Routine 12/09/2021 10:50 Hypomagnesemia Results for this METABOLIC PANEL AM EDT STACIE (acute kidney procedu re are in (NON-FASTING) injury) the results H/O Clostridium section. 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 in neoplastic disea se Weakness acquired in ICU S/P allogeneic bone marrow transplan t Dehydration documented in this encounter Results (ABNORMAL) Differential, Automated (12/09/2021 10:50 AM EDT) [facility] gist Method Time Signature Neutrophils % 71.3 % [facility] Neutr Abs (ANC) 7.62 (H) 1.70 - [facility] 6.10 [facility] x10(3)/[facility] LABORATORY Lymphocytes % 12.1 % [facility] Lymphocytes Abs 1.3 0.9 - 3.2 [facility] x10(3)/[facility] LABORATORY Monocytes % 9.1 % [facility] Monocyte Abs 1.0 (H) 0.3 - 0.9 [facility] x10(3)/[facility] LABORATORY Eosinophils % 5.5 % [facility] Eosinophils Abs 0.6 (H) 0.0 - 0.4 [facility] x10(3)/[facility] LABORATORY Basophils % 1.0 % [facility] Basophils Abs 0.1 0.0 - 0.1 [facility] x10(3)/[facility] LABORATORY Immature Gran % 1.00 % [facility] Comment: Immature granulocytes(IG's)percentage an d absolute count will include metamyelocytes, myelocytes, and promyelo cytes. Blood smears from CBCs yielding IG's will be scanned manually for concor dance. If this scan disagrees with the automated IG or if promyelocytes are not ed, a manual differential will be performed. Zara Gran Abs 0.11 (H) 0.00 - 0.04 x10(3)/[facility] LABORATORY Specimen Anatomical Collection Method Collection Time Receive d Time (Source) Location / / Volume Laterality Blood 12/09/2021 10:50 12/09/2021 AM EDT 10:56 AM EDT Resulting Agency Comment Spec In Lab Parviz Modi MD HEMATOLOGY ORDERABLES Performing Organization Address City/State/[place] [address] (ABNORMAL) Hemogram (12/09/2021 10:50 AM EDT) [facility] gist Method Time Signature WBC 10.7 (H) 4.0 - 9.5 [facility] x10(3)/[facility] LABORATORY RBC 2.99 (L) 4.58 - [facility]54 [facility] x10(6)/[facility] LABORATORY Hemoglobin 9.7 (L) 13.7 - [facility] 16.5 g/dL [facility] Hematocrit 29.5 (L) 40.5 - [facility] ARASELI 48.5 % [facility] MCV 98.7 (H) 82.9 - [facility] 93.1 [facility] LABORATORY MCH 32.4 (H) 27.5 - [facility] 32.1 pg [facility] MCHC 32.9 32.0 - [facility] 35.7 g/dL [facility] Platelets 87 (L) 145 - 357 [facility] x10(3)/[facility] LABORATORY RDWSD 74.6 (H) 36.0 - [facility] 45.0 [facility] LABORATORY RDWCV 21.7 (H) 11.4 - [facility] ARASELI 13.8 % [facility] MPV 12.4 7.6 - 12.9 [facility] MARX [facility] LABORATORY nRBC % Auto 0.3 % [facility] nRBC Abs Auto 0.030 (H) 0.000 - [facility] MARX 0.000 [facility] x10(3)/[facility] LABORATORY Specimen Anatomical Collection Method Collection Time Receive d Time (Source) Location / / Volume Laterality Blood 12/09/2021 10:50 12/09/2021 AM EDT 10:56 AM EDT Resulting Agency Comment Spec In Lab Parviz Modi MD HEMATOLOGY ORDERABLES Performing Organization Address City/[facility]/ZIP Code Phon e Number [address] CMV PCR, Quantitative (12/09/2021 10:50 AM EDT) [facility] Method Time Signature CMV Quant Not Detected Not Detected JIA (Numeric) IU/mL [facility] Comment: Indication for Study: [...] (Source) Location / / Volume Laterality Blood 12/09/2021 10:50 12/10/2021 8:36 AM EDT AM EDT Resulting Agency Comment Spec In Lab Parviz Modi MD IMMUNOLOGY ORDERABLES Performing Organization Address City/[facility]/ZIP Code Phon e Number [address] (ABNORMAL) EBV PCR Quantitative (12/09/2021 10:50 AM EDT) [facility] Method Time Signature EBV DNA BY 100 (A) Undetected [facility] PCR IU/mL [facility] Comment: Result in log IU/mL is 2.00. ADDITIONAL INFORMATIO N The quantification range of this assay i s 35 to 100,000,000 IU/mL (1.54 log to 8.00 log IU/mL). Test ing was performed using the jasmeet EBV test ([employer] with the jasmeet 6800 System. Test Performed by: [facility] [address] [address] Ups Driver: Randal Aparicio M.D. Ph. D.; CLIA# [id number] Specimen Anatomical Collection Method Collection Time Receive d Time (Source) Location / / Volume Laterality Blood 12/09/2021 10:50 12/09/2021 4:31 AM EDT PM EDT Resulting Agency Comment Spec In Lab Parviz Modi MD IMMUNOLOGY ORDERABLES Performing Organization Address City/[facility]/ZIP Code Phon e Number [address] (ABNORMAL) Magnesium (12/09/2021 10:50 AM EDT) athologist Signature Magnesium 0.68 (L) 0.69 - 1.07 [facility] mmol/L [facility] Specimen Anatomical Collection Method Collection Time Receive d Time (Source) Location / / Volume Laterality Blood 12/09/2021 10:50 12/09/2021 AM EDT 10:56 AM EDT Resulting Agency Comment Spec In Lab Parviz Modi MD CHEMISTRY ORDERABLES Performing Organization Address City/[facility]/[place] [address] (ABNORMAL) Comprehensive metabolic panel (non-fasting) (12/09/2021 10:50 AM EDT) P athologist Signature Glucose Lvl 110 65 - 199 [facility] mg/dL [facility] Comment: Diabetes: >=200 mg/dL plus symp toms BUN 35 (H) 10 - 20 mg/dL [facility] Creatinine 2.85 (H) 0.80 - 1.50 mg/dL [facility] Sodium 134 (L) 135 - 145 mmol/L [facility] Potassium 5.3 (H) 3.5 - 5.0 mmol/L [facility] Comment: Please note: ??Patients with WBC >100,00 0 may have falsely elevated Potassium levels. ??For accurate Potassium quantif ication in these patients send serum separator tube (gold top) for subsequent determinations. ??Contact the Clinical Chemistry Laboratory if there are any qu estions. Chloride 101 98 - 107 mmol/L [facility] CO2 17 (L) 22 - 31 mmol/L [facility] Anion Gap 16 (H) 5 - 15 mmol/L [facility] Calcium 9.6 8.5 - 10.5 mg/dL [facility] Total Protein 7.4 6.1 - 8.0 g/dL [facility] Albumin 4.0 3.2 - 5.2 g/dL [facility] AST 22 0 - 39 unit/L [facility] ALT 22 0 - 55 unit/L [facility] Alk Phos 453 (H) 40 - 130 unit/L [facility] Total Bilirubin 0.5 0.2 - 1.3 mg/dL [facility] Estimated GFR 23 (L) >=60 mL/min/1.73 m?? [facility] Comment: This patient? s estimated glomerular filtration rate (eGFR) is between 23 mL/min/1.73 m2 (patients with less muscl e mass per kg body weight) and 26 mL/min/1.73 m2 (patients with more muscl e [...] (Source) Location / / Volume Laterality Blood 12/09/2021 10:50 12/09/2021 AM EDT 10:56 AM EDT Resulting Agency Comment Spec In Lab Parviz Modi MD CHEMISTRY ORDERABLES Performing Organization Address City/[facility]/[place] [address] Tacrolimus level (12/09/2021 10:50 AM EDT) athologist Signature Tacrolimus Lvl 6.8 ng/mL [facility] Comment: Trough [...] (Source) Location / / Volume Laterality Blood 12/09/2021 10:50 12/09/2021 AM EDT 10:56 AM EDT Resulting Agency Comment Spec In Lab Parviz Modi MD CHEMISTRY ORDERABLES Performing Organization Address City/[facility]/[place] [address] IgG (12/09/2021 10:50 AM EDT) athologist Signature IgG 1,326 700 - 1,600 [facility] mg/dL [facility] Comment: Pediatric Reference Intervals obtained f rom the Caliper Reference Interval project. http://www.sickkids.ca/caliperp roject/index.html Specimen Anatomical Collection Method Collection Time Receive d Time (Source) Location / / Volume Laterality Blood 12/09/2021 10:50 12/09/2021 AM EDT 10:56 AM EDT Resulting Agency Comment Spec In Lab Parviz Modi MD IMMUNOLOGY ORDERABLES Performing Organization Address City/[facility]/[place] [address] documented in this encounter [...] neoplastic disease Weakness acquired in ICU Dehydration documented in this encounter Administered Medications Inactive Administered Medications - up to 3 most recent administrations Medication Order MAR Action Action Date Dose Rate Site sodium chloride 0.9 % (flush) (BD Given 12/09/2021 10:33 AM EDT 20 mLs PosiFlush Normal Saline 0.9) flush 10-20 mL 10-20 mL, Intravenous, EVERY 1 MIN PRN, Starting on Thu12/09/21 at 1015, Until Thu12/10/21 at 0438, Wearing [employer]arel [employer]er, Routine documented in this encounter Additional Health Concerns Infection Onset Date Last Indicated Resolved Time History of C. difficileComment: C. diffiicile 08/20/2021 testing positive 05/25/21. documented as of this encounter Care Teams Business Director Relationship Specialty Start Date End Date Beatriz Maurice PA PCP - General Family Medicine 05/06/21 [address] [place] [address] documented as of this encounter
--- OUTSIDE RECORDS SUMMARY | 2022-02-14 11:09 | XMS_ITS | Encounter Summary ---
:1960 Author Organization [facility] Address [address] [place] [address] Care Team Providers Name Role Phone Beatriz Maurice Primary Care Provider Reason for Visit Auth/Cert Specialty Diagnoses / Procedures Referred By Contact Refer red To Contact Diagnoses Failure to thrive in adult Procedures EMERGENCY IPI Referral ID Status Reason Start Date Expiration Date Visits Requ ested Visits Authorized [id number] 1 1 Encounter Details Date Type Department Care Team Description 12/13/2021 Hospital Encounter Hematology and Hypomag nesemia; Oncology at [facility] STACIE (acute kidney injury); [facility] H/O Clost ridium difficile infection; Drive Colostomy in place; [place] [address] Acute leukemia in remission; [phone] Anemia in neopl astic disease; Weakness acquir [...] powder #[id number] every other month. Ostomy Supplies [facility] Dispense 2 boxes 20 each 2 (10/box) of Sensura [place] Soft Convex One-piece Pouch #[id number] per month. Ostomy Supplies [facility] Dispense 2 boxes 40 each 11 2 (20/box) of Brava Elastic Barrier strips #[id number] per month. Ostomy Supplies [facility] [...] 200 mg Capsule mouth 2 times daily. budesonide EC Take 3 capsules by 90 capsule 3 12/09/202110/2021 (Entocort EC) 3 mg mouth every morning. Capsule, Delayed & Ext.Release loperamide (Imodium Take 1 capsule by 90 tablet 1 2 02/03/2022 A-D) 2 mg Capsule mouth 3 times daily. nystatin (Mycostatin) Take 5 mLs by mouth 4 140 mL 3 12/17/2021 100,000 unit/mL times daily for 7 Suspension days. tacrolimus (Prograf) Take 1 capsule by 60 capsule 3 12/03/19 22 01/14/2022 0.5 mg mouth 2 times daily. CapsuleIndications: Acute myeloid leukemia in remission vancomycin (Vancocin) Take 1 capsule by 60 capsule 5 022 02/03/2022 125 mg Capsule mouth 2 times daily. fluconazole Take 2 tablets by 60 tablet [...] Progress Notes Jose L Jiang RN - 12/13/2021 9:22 AM EDT Patient Name: Herber Iverson Jr. Patient Age: 61 y.o. Birthdate: 1960 Admit date: 12/13/2021 Attending Physician: No att. providers found Access visit. See MAR and/or flowsheet. documented in this encounter Plan of Treatment Upcoming Encounters Date Type Specialty Care Team Description 02/18/2022 Infusion Hematology and Oncology 02/21/2022 Infusion Hematology and Oncology 02/24/2022 Appointment Hematology and Oncology 02/24/2022 Office Visit Hematology and Oncology Parviz Modi MD [facility] DR HEMATOLOGY/[place] [address] Miroslava Pelayo APRN [facility] HEMATOLOGY/[place] [address] 02/24/2022 Office Visit Wound Care 02/24/2022 Appointment Hematology and Oncology 02/26/2022 Office Visit Neurology Leni Bustamante MD [facility] ER NEUROLOGY DEPT. [place], [place] [address] (Wo rk) documented as of this encounter Procedures Procedure Name Priority Date/Time Associated Comments Diagnosis HEMOGRAM STAT 12/13/2021 9:20 AM Hypomagnesemi a Results for this EDT STACIE (acute kidney procedure are in injury) the results H/O Clostridium section. 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 in neoplastic disea se Weakness acquired in ICU S/P allogeneic bone marrow transplan t Dehydration DIFFERENTIAL, STAT 12/13/2021 9:20 AM Hypomagnesemi a Results for this AUTOMATED EDT STACIE (acute kidney procedure are in injury) the results H/O Clostridium section. 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 in neoplastic disea se Weakness acquired in ICU S/P allogeneic bone marrow transplan t Dehydration HC FK-506 (TACROLIMUS) STAT 12/13/2021 9:20 AM Hypoma gnesemia Results for this EDT STACIE (acute kidney procedure are in injury) the results H/O Clostridium section. 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 in neoplastic disea se Weakness acquired in ICU S/P allogeneic bone marrow transplan t Dehydration HC CBC,PLT & AUTO DIFF STAT 12/13/2021 9:20 AM Hypoma gnesemia EDT STACIE (acute kidney injury) H/O Clostridium 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 in neoplastic disea se Weakness acquired in ICU S/P allogeneic bone marrow transplan t Dehydration HC MAGNESIUM, SERUM Routine 12/13/2021 9:20 AM Hypomagne semia Results for this EDT STACIE (acute kidney procedure are in injury) the results H/O Clostridium section. 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 in neoplastic disea se Weakness acquired in ICU S/P allogeneic bone marrow transplan t Dehydration COMPREHENSIVE Routine 12/13/2021 9:20 AM Hypomagnesemi a Results for this METABOLIC PANEL EDT STACIE (acute kidney procedu re are in (NON-FASTING) injury) the results H/O Clostridium section. 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 in neoplastic disea se Weakness acquired in ICU S/P allogeneic bone marrow transplan t Dehydration documented in this encounter Results (ABNORMAL) Differential, Automated (12/13/2021 9:20 AM EDT) [facility] gist Method Time Signature Neutrophils % 75.8 % [facility] Neutr Abs (ANC) 6.39 (H) 1.70 - [facility] 6.10 [facility] x10(3)/[facility] LABORATORY Lymphocytes % 12.6 % [facility] Lymphocytes Abs 1.1 0.9 - 3.2 [facility] x10(3)/[facility] LABORATORY Monocytes % 8.2 % [facility] Monocyte Abs 0.7 0.3 - 0.9 [facility] x10(3)/[facility] LABORATORY Eosinophils % 1.9 % [facility] Eosinophils Abs 0.2 0.0 - 0.4 [facility] x10(3)/[facility] LABORATORY Basophils % 0.6 % [facility] Basophils Abs 0.0 0.0 - 0.1 [facility] x10(3)/[facility] LABORATORY Immature Gran % 0.90 % [facility] Comment: Immature granulocytes(IG's)percentage an d absolute count will include metamyelocytes, myelocytes, and promyelo cytes. Blood smears from CBCs yielding IG's will be scanned manually for concor dance. If this scan disagrees with the automated IG or if promyelocytes are not ed, a manual differential will be performed. Zara Gran Abs 0.08 (H) 0.00 - 0.04 x10(3)/[facility] LABORATORY Specimen Anatomical Collection Method Collection Time Receive d Time (Source) Location / / Volume Laterality Blood 12/13/2021 9:20 AM 9:55 EDT AM EDT Resulting Agency Comment Spec In Lab Parviz Modi MD HEMATOLOGY ORDERABLES Performing Organization Address City/State/ZIP [place] [address] (ABNORMAL) Hemogram (12/13/2021 9:20 AM EDT) [facility] gist Method Time Signature WBC 8.4 4.0 - 9.5 [facility] x10(3)/[facility] LABORATORY RBC 2.90 (L) 4.58 - [facility] 5.54 [facility] x10(6)/[facility] LABORATORY Hemoglobin 9.6 (L) 13.7 - [facility] 16.5 g/dL [facility]ORATORY Hematocrit 29.0 (L) 40.5 - [facility] 48.5 % [facility] LABORATORY MCV 100.0 (H) 82.9 - [facility] 93.1 [facility] LABORATORY MCH 33.1 (H) 27.5 - [facility] 32.1 pg [facility] LABORATORY MCHC 33.1 32.0 - [facility] 35.7 g/dL [facility] Platelets 73 (L) 145 - 357 [facility] x10(3)/[facility] LABORATORY RDWSD 77.2 (H) 36.0 - [facility] 45.0 [facility] LABORATORY RDWCV 21.4 (H) 11.4 - [facility] 13.8 % [facility] LABORATORY MPV 11.7 7.6 - 12.9 [facility] LABORATORY nRBC % Auto 0.0 % [facility] nRBC Abs Auto 0.000 0.000 - [facility] 0.000 [facility] x10(3)/[facility] LABORATORY Specimen Anatomical Collection Method Collection Time Receive d Time (Source) Location / / Volume Laterality Blood 12/13/2021 9:20 AM 9:55 EDT AM EDT Resulting Agency Comment Spec In Lab Parviz Modi MD HEMATOLOGY ORDERABLES Performing Organization Address City/State/ZIP [place] [address] (ABNORMAL) Comprehensive metabolic panel (non-fasting) (12/13/2021 9:20 AM EDT) athologist Signature Glucose Lvl 105 65 - 199 [facility] mg/dL [facility] Comment: Diabetes: >=200 mg/dL plus symp toms BUN 45 (H) 10 - 20 mg/dL [facility] Creatinine 2.80 (H) 0.80 - 1.50 mg/dL [facility] LABOR[facility]ORY Sodium 135 135 - 145 mmol/L [facility] Potassium 5.0 3.5 - 5.0 mmol/L [facility] Comment: Please note: ??Patients with WBC >100,00 0 may have falsely elevated Potassium levels. ??For accurate Potassium quantif ication in these patients send serum separator tube (gold top) for subsequent determinations. ??Contact the Clinical Chemistry Laboratory if there are any qu estions. Chloride 105 98 - 107 mmol/L [facility] CO2 16 (L) 22 - 31 mmol/L [facility] Anion Gap 14 5 - 15 mmol/L [facility] Calcium 9.9 8.5 - 10.5 mg/dL [facility] Total Protein 7.3 6.1 - 8.0 g/dL [facility] Albumin 3.9 3.2 - 5.2 g/dL [facility] AST 16 0 - 39 unit/L [facility] ALT 15 0 - 55 unit/L [facility] Alk Phos 287 (H) 40 - 130 unit/L [facility] Total Bilirubin 0.4 0.2 - 1.3 mg/dL [facility] Estimated GFR 23 (L) >=60 mL/min/1.73 m?? [facility] Comment: This patient? s estimated glomerular filtration rate (eGFR) is between 23 mL/min/1.73 m2 (patients with less muscl e mass per kg body weight) and 27 mL/min/1.73 m2 (patients with more muscl e [...] Location / / Volume Laterality Blood 12/13/2021 9:20 AM 2 9:55 EDT AM EDT Resulting Agency Comment Spec In Lab Parviz Modi MD CHEMISTRY ORDERABLES Performing Organization Address City/State/ZIP Code Phon e Number [address] (ABNORMAL) Magnesium (12/13/2021 9:20 AM EDT) P athologist Signature Magnesium 0.66 (L) 0.69 - 1.07 [facility] mmol/L [facility] LABORATORY Specimen Anatomical Collection Method Collection Time Receive d Time (Source) Location / / Volume Laterality Blood 12/13/2021 9:20 AM 2 9:55 EDT AM EDT Resulting Agency Comment Spec In Lab Parviz Modi MD CHEMISTRY ORDERABLES Performing Organization Address City/State/ZIP Code Phon e Number [address] Tacrolimus level (12/13/2021 9:20 AM EDT) P athologist Signature Tacrolimus Lvl 5.0 ng/mL [facility] Comment: Trough therapeutic range [...] Location / / Volume Laterality Blood 12/13/2021 9:20 AM 2 9:55 EDT AM EDT Resulting Agency Comment Spec In Lab Parviz Modi MD CHEMISTRY ORDERABLES Performing Organization Address City/State/ZIP [place] [address] documented in this encounter [...] sodium chloride 0.9 % (flush) (BD Given 12/13/2021 9:21 AM EDT 2 0 mLs PosiFlush Normal Saline 0.9) flush 10-20 mL 10-20 mL, Intravenous, EVERY 1 MIN PRN, Starting on Thu12/13/21 at 0854, Until 12/14/21 at 0233, Jigger Artisan, Routine documented in this encounter Additional Health Concerns Infection Onset Date Last Indicated Resolved Time History of C. difficileComment: C. diffiicile 08/20/2021 testing positive 05/25/21. documented as of this encounter Care Teams Buckle Stapler Relationship Specialty Start Date End Date Beatriz Maurice PA PCP - General Family Medicine 05/06/21 [address] [place] [address] documented as of this encounter
--- OUTSIDE RECORDS SUMMARY | 2022-02-14 11:09 | XMS_ITS | Encounter Summary ---
:1960 Author Organization [facility] [place] [address] Care Team Providers Name Role Phone Beatriz Maurice Primary Care Provider Encounter Details Date Type Department Care Team Description 12/19/2021 Telephone Hematology and Oncology at [address] [place] [address] [place] [address] Social History Tobacco Use Types Packs/Day [...] Telephone Encounter - [address] - 12/19/2021 8:55 AM EDT [facility] Progress Note Patient Name: Herber Iverson JrNabil Diagnosis: leukemia Treatment: s/p MUD stem cell transplant Assessment: HPI Pt is 61 yo male s/p MUD stem cell transplant, 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 . Course c/b need for TPN + PO intake while inpatient. 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 Pt recently admitted for FTT and dehydration with d/c date of 12/17. Called pt to check in after d/c- he did not eat anything yesterday (first day home from hospital). Fluids easier to get in than solid food. He states he is going to try and do better today. He is going to diamond picker his marinol prescription today. Past Medical History: Diagnosis Date ??? AML (acute myeloblastic leukemia) 04/2021 ??? BPH (benign prostatic hyperplasia) ??? GERD (gastroesophageal reflux disease) ??? Paroxysmal atrial fibrillation ??? 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 Wt Readings from Last 20 Encounters: 12/13/21 91.4 kg (201 lb 8 [...] 11/18/21 99.3 kg (218 lb 14.7 oz) 10/15/21 107.8 kg (237 lb 9.6 oz) 10/04/21 107.2 kg (236 lb 6.4 oz) 09/27/21 109 kg (240 lb 6.4 oz) 09/16/21 105.9 kg (233 lb 6.4 oz) 09/12/21 106.6 kg (235 lb) 09/09/21 102.8 kg (226 lb 9.6 oz) 09/05/21 106.8 kg (235 lb 6.4 oz) 08/26/21 102.8 kg (226 lb 9.6 oz) 08/19/21 100.2 kg (221 lb) 08/12/21 99.2 kg (218 lb 12.8 oz) 7.7% wt loss x 1 month - significant Estimated Needs: Calories: 2340 kcal (30 kcal/kg IBW) Protein: 94g (1.2g/kg IBW) Meds: marinol Labs: Noted Diet Recall: Happy to be home Did not eat anything yesterday Treatment related side effects: No taste, minimal appetite Intervention: - Enc CIB vs Ensure as a supplement - Enc fluids - Enc small, frequent meals Monitoring: Will f/u with pt in infusion 12/20. Pt encouraged to contact as needed. Cortney Givens RD, CNSC, LD documented in this encounter Plan of Treatment Upcoming Encounters Date Type Specialty Care Team Description 02/18/2022 Infusion Hematology and Oncology 02/21/2022 Infusion Hematology and Oncology 02/24/2022 Appointment Hematology and Oncology 02/24/2022 Office Visit Hematology and Oncology Parviz Modi MD [facility] DR HEMATOLOGY/[place] [address] Miroslava Pelayo APRN [facility] DR HEMATOLOGY/[place] [address] 02/24/2022 Office Visit Wound Care 02/24/2022 Appointment Hematology and Oncology 02/26/2022 Office Visit Neurology Leni Bustamante MD [facility] DR NEUROLOGY DEPT. [place], [place] [address] (Wo rk) documented as of this encounter Visit Diagnoses Not on filedocumented in this encounter Additional Health Concerns Infection Onset Date Last Indicated Resolved Time History of C. difficileComment: C. diffiicile 08/20/2021 testing positive 05/25/21. documented as of this encounter Care Teams Valve Steamer Relationship Specialty Start Date End Date Beatriz Maurice PA PCP - General Family Medicine 05/06/21 [address] [place] [address] documented as of this encounter
--- OUTSIDE RECORDS SUMMARY | 2022-02-14 11:09 | XMS_ITS | Encounter Summary ---
:1960 Author Organization [employer] Address [facility] [place] [address] Care Team Providers Name Role Phone Beatriz Maurice Primary Care Provider Reason for Visit Auth/Cert Specialty Diagnoses / Procedures Referred By Contact Refer red To Contact Diagnoses Failure to thrive in adult Procedures EMERGENCY IPI Referral ID Status Reason Start Date Expiration Date Visits Requ ested Visits Authorized [id number] 1 1 Encounter Details Date Type Department Care Team Description 12/13/2021 Office Visit Hematology and Radha Modi MD [facility] DR HEMATOLOGY/[place] [address] Failure to thrive in adult; Oncology at [facility] Miroslava Pelayo APRN [facility] DR HEMATOLOGY/[place] [address] Hypomagnesemia; [facility] Hayley Macias APRN [facility] DR HEMATOLOGY-[place] [address] H/O Clostridium difficile infection; Drive Acute leukemia in remission; [place], [place] S/P allogeneic bone marrow transplant; [address] Dehydration; [phone] STACIE (acute kidn ey injury) Social History Tobacco Use Types Packs/Day Years [...] Sign Reading Time Taken Comments Blood Pressure 103/73 12/13/2021 9:33 AM EDT Pulse 82 12/13/2021 9:33 AM EDT Temperature 36 ??C (96.8 ??F) 12/13/2021 9:33 AM EDT Respiratory Rate 16 12/13/2021 9:33 AM EDT Oxygen Saturation 93% 12/13/2021 9:33 AM EDT Inhaled Oxygen Concentration - - Weight 90.8 kg (200 lb 3.2 oz) 12/13/2021 9:33 AM EDT Height 176.4 cm (5' 9.45) 12/13/2021 9:33 AM EDT Body Mass Index 29.18 12/13/2021 9:33 AM EDT documented in this encounter Progress Notes Hayley Macias, HEYDI - 12/13/2021 10:00 AM EDT HEMATOLOGY/BMT CONSULTATION VISIT NOTE CHIEF COMPLAINT: Herber Iverson Jr. is a 61 y.o. male originally referred by Dr. Beatriz Maurice for evaluation of leukemia. He is seen in follow-up today. Data Review (From Recent Hospital discharge summary and the EMR) Admitted to [facility] 04/29/21 for leukocytosus. Discharged 04/30/21 04/30/21 [...] [place] [address]/10,000 ABL1 copies (135.80%.) 08/08/21 Discharged after reinduction with gilteritinib and venetoclax and initial clearance of PERMASTONE APPLICATOR leukemia. 08/12/21 LP - FELY 08/26/21 LP [...] Date NPM1 HSCT Day Source Total PMN [place] 05/21/21 43% 08/06/21 135% 09/12/21 1.95% 11/22/21 [...] abnormal counts and he was admitted to [facility]. Other than fatigue has had no fevers, chills or drenching sweats. Has lost a few lbs - <10. Appetite has been down recently. No bleeding or bruising. Was very actived when younger - played a lot of sports into his 40's. 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 He is accompanied today by his partner Morales. Herber is really struggling with failure to thrive. He has been receiving fluids and magnesium locally as well as recently starting on bu desonide but he still has no real desire to eat or drink. In the last 48 hours he has had 1 piece oftoast in 1 day. He drank 21 ounces of fluid yesterday although he did receive a liter locally. He isvery weak and shaky. Has lost approximately 17 pounds over the past month. The oral candidiasis has not cleared up in his mouth. Ostomy is working well with diarrhea that is slowly progressing from watery to soft. No focal signs of infection. 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 Social - has a girlfriend and his [...] ??? aspirin 81 mg, Oral, DAILY ??? budesonide EC (ENTOCORT EC) 9 mg, Oral, EVERY MORNING ??? Colostomy Belt (Ostomy Belt Medium) [facility] Dispense 1 Sensura Mcgrann Belt #[id number] per month. ??? flecainide (TAMBOCOR) 50 mg, [...] of Sensura Flako Soft Convex One-piece Pouch #[id number] month. ??? Ostomy Supplies Misc Dispense 2 boxes (20/box) of Brava Elastic Barrier strips #[id number] per month. ??? Ostomy Supplies Misc Dispense [...] itchy. PHYSICAL EXAM VITAL SIGNS: Blood pressure 103/73, pulse 82, temperature 36 ??C (96.8 ??F), resp. rate 16, height 176.4 cm (5' 9.45), weight 90.8 kg (200 lb 3.2 oz), SpO2 93 %. GENERAL: Herber Iverson Jr. is a [...] level Result Value Ref Range Tacrolimus Lvl 5.0 ng/mL Magnesium Result Value Ref Range Magnesium 0.66 (L) 0.69 - 1.07 mmol/L Comprehensive metabolic panel (non-fasting) Result Value Ref Range Glucose Lvl 105 65 - 199 mg/dL BUN 45 (H) 10 - 20 mg/dL Creatinine 2.80 (H) 0.80 - 1.50 mg/dL Sodium 135 135 - 145 mmol/L Potassium 5.0 3.5 - 5.0 mmol/L Chloride 105 98 - 107 mmol/L CO2 16 (L) 22 - 31 mmol/L Anion Gap 14 5 - 15 mmol/L Calcium 9.9 8.5 - 10.5 mg/dL Total Protein 7.3 6.1 - 8.0 g/dL Albumin 3.9 3.2 - 5.2 g/dL AST 16 0 - 39 unit/L ALT 15 0 - 55 unit/L Alk Phos 287 (H) 40 - 130 unit/L Total Bilirubin 0.4 0.2 - 1.3 mg/dL Estimated GFR 23 (L) >=60 mL/min/1.73 m?? Hemogram Result Value Ref Range WBC 8.4 4.0 - 9.5 x10(3)/mcL RBC 2.90 (L) 4.58 - 5.54 x10(6)/mcL Hemoglobin 9.6 (L) 13.7 - 16.5 g/dL Hematocrit 29.0 (L) 40.5 - 48.5 % MCV 100.0 (H) 82.9 - 93.1 fL MCH 33.1 (H) 27.5 - 32.1 pg MCHC 33.1 32.0 - 35.7 g/dL Platelets 73 (L) 145 - 357 x10(3)/mcL RDWSD 77.2 (H) 36.0 - 45.0 fL RDWCV 21.4 (H) 11.4 - 13.8 % MPV 11.7 7.6 - 12.9 fL nRBC % Auto 0.0 % nRBC Abs Auto 0.000 0.000 - 0.000 x10(3)/mcL Differential, Automated Result Value Ref Range Neutrophils % 75.8 % Neutr Abs (ANC) 6.39 (H) 1.70 - 6.10 x10(3)/mcL Lymphocytes % 12.6 % Lymphocytes Abs 1.1 0.9 - 3.2 x10(3)/mcL Monocytes % 8.2 % Monocyte Abs 0.7 0.3 - 0.9 x10(3)/mcL Eosinophils % 1.9 % Eosinophils Abs 0.2 0.0 - 0.4 x10(3)/mcL Basophils % 0.6 % Basophils Abs 0.0 0.0 - 0.1 [...] back to work as Herber is requiring [id number] care. JENNIFER Teran is working with Herber and Chai to help with their finances through grants, grocery and gas cards. 7. Summary of Plans ?? Admit to [address] [facility]; Dr. Urban Dos Santos's service ?? Continuous IV fluids and IV Mag in clinic ( 2 gms ) ?? Continue Tacrolimus at 0.5 mg BID - level within target range today. ?? HOLD Bactrim due to STACIE - Please give a dose of Pentamidine while in-house ?? Continue Fluconazole at 200 mg / day ?? Continue treatment of oral thrush ?? Evaluation by nutrition services ?? 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 ?? Evaluation by physical therapy ?? Day ~+60 BM Bx - scheduled for 12/23/21 - orders are in including chimerism and NPM1 MRD testing. ?? --Per Tino et al, Blood 2020 plan to add Idhifa at ~day +60. ?? Seen by JENNIFER Teran today for financial support. ?? Immunizations at 6 months HAYLEY MACIAS APRN Section of Hematology [facility] documented in this encounter Plan of Treatment Upcoming Encounters Date Type Specialty Care Team Description 02/18/2022 Infusion Hematology and Oncology 02/21/2022 Infusion Hematology and Oncology 02/24/2022 Appointment Hematology and Oncology 02/24/2022 Office Visit Hematology and Oncology Parviz Modi MD [facility] HEMATOLOGY/[place] [address] Miorslava Pelayo APRN [facility] HEMATOLOGY/[place] [address] 02/24/2022 Office Visit Wound Care 02/24/2022 Appointment Hematology and Oncology 02/26/2022 Office Visit Neurology Leni Bustamante MD [facility] NEUROLOGY DEPT. [place], [place] [address] (Wo rk) documented as of this encounter Visit Diagnoses Diagnosis Failure to thrive in adult Adult failure to thrive Hypomagnesemia Disorders of magnesium metabolism H/O Clostridium difficile infection Personal history of other infectious and parasitic disease Acute leukemia in remission Acute leukemia of unspecified cell type in remission S/P allogeneic bone marrow transplant Bone marrow replaced by transplant Dehydration STACIE (acute kidney injury) Acute kidney failure, unspecified documented in this encounter Additional Health Concerns Infection Onset Date Last Indicated Resolved Time History of C. difficileComment: C. diffiicile 08/20/2021 testing positive 05/25/21. documented as of this encounter Care Teams Discharge Specialist Relationship Specialty Start Date End Date Beatriz Maurice PA PCP - General Family Medicine 05/06/21 [address] [place] [address] documented as of this encounter
--- OUTSIDE RECORDS SUMMARY | 2022-02-14 11:09 | XMS_ITS | Encounter Summary ---
:1960 Author Organization [facility] Address [facility] [place] [address] Care Team Providers Name Role Phone Beatriz Maurice Primary Care Provider Encounter Details Date Type Department Care Team Description 12/12/2021 Notes Only Hematology and Oncology Parviz Modi MD at [facility] Catie narvaez HEMATOLOGY/[place] [address] [place] [address] [phone] (Wo rk) Social History Tobacco Use Types [...] documented as of this encounter Progress Notes Parviz Modi MD - 12/12/2021 9:31 AM EDT Brief Note Because Herber has not been tolerating Mag Ox AA chelate, we have changed this to magnesium oxide 400 mg p.o. 3 times daily. A new prescription has been entered and Herber has been contacted about making this change. Karolyn Carmona MD documented in this encounter Plan of Treatment Upcoming Encounters Date Type Specialty Care Team Description 02/18/2022 Infusion Hematology and Oncology 02/21/2022 Infusion Hematology and Oncology 02/24/2022 Appointment Hematology and Oncology 02/24/2022 Office Visit Hematology and Oncology Parviz Modi MD [facility] DR HEMATOLOGY/[place] [address] Miroslava Pelayo APRN [facility] DR HEMATOLOGY/[place] [address] 02/24/2022 Office Visit Wound Care 02/24/2022 Appointment Hematology and Oncology 02/26/2022 Office Visit Neurology Leni Bustamante MD [facility] DR NEUROLOGY DEPT. [place], [place] [address] (Wo rk) documented as of this encounter Visit Diagnoses Not on filedocumented in this encounter Additional Health Concerns Infection Onset Date Last Indicated Resolved Time History of C. difficileComment: C. diffiicile 08/20/2021 testing positive 05/25/21. documented as of this encounter Care Teams Order Analyst Relationship Specialty Start Date End Date Beatriz Maurice PA PCP - General Family Medicine 05/06/21 [address] [place] [address] documented as of this encounter
--- OUTSIDE RECORDS SUMMARY | 2022-02-14 11:09 | XMS_ITS | Encounter Summary ---
:1960 Author Organization [facility] Address [facility] [address] Care Team Providers Name Role Phone Beatriz Maurice Primary Care Provider Reason for Visit Reason Comments Other hydration Auth/Cert Specialty Diagnoses / Procedures Referred By Contact Refer red To Contact Diagnoses Failure to thrive in adult Procedures EMERGENCY IPI Referral ID Status Reason Start Date Expiration Date Visits Requ ested Visits Authorized [id number] 1 1 Encounter Details Date Type Department Care Team Description 12/12/2021 Infusion Hematology Oncology at [facility]; [facility] S/P allogeneic bone marrow t ransplant; [facility] [address] Acute myeloid leukemia in [place], [place] [phone] Social History Tobacco Use [...] Reading Time Taken Comments Blood Pressure 115/79 12/12/2021 1:42 PM EDT Pulse 156 12/12/2021 1:42 PM EDT Temperature 36.1 ??C (96.9 ??F) 12/12/2021 1:42 PM EDT Respiratory Rate 16 12/12/2021 1:42 PM EDT Oxygen Saturation 95% 12/12/2021 1:42 PM EDT Inhaled Oxygen Concentration - - Weight 91.1 kg (200 lb 12.8 oz) 12/12/2021 1:42 PM EDT Height 177.8 cm (5' 10) 12/12/2021 1:42 PM EDT Body Mass Index 28.81 12/12/2021 1:42 PM EDT documented in this encounter Progress Notes Daisy Mcclellan RN - 12/12/2021 2:00 PM EDT INFUSION THERAPY ADMINISTRATION NOTES TIME TREATMENT STARTED: 1344 TIME TREATMENT ENDED: 1529 DIAGNOSIS: PROTOCOL:na CYCLE #: na REASON FOR VISIT: hydration SUBJECTIVE Herber Butts Kishor Anne offers no complaints. OBJECTIVE LAB DATA: magnesium 2.3 cr 3.[address] Modi, repeat magnesium wanted drawn after 700 css of fluid went in came back at 1.6, reviewed with Aubrey Palmer TILE AND MOTTLE SUPERVISOR. No IV magnesium given today. 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 mediport accessed with out issue flushed with 20ccs normal saline and 500 units iv heaprin. REACTIONS (DESCRIPTION, TIME, INTERVENTION AND EFFECTIVENESS) none ASSESSMENT Herber Iverson JrNabil was awake, alert and he tolerated treatment well. PLAN Dr. Modi wants to see pt tomorrow in [place] with labs and get hydration down there. They will call Chai his girlfriend with the time. documented in this encounter Plan of Treatment Upcoming Encounters Date Type Specialty Care Team Description 02/18/2022 Infusion Hematology and Oncology 02/21/2022 Infusion Hematology and Oncology 02/24/2022 Appointment Hematology and Oncology 02/24/2022 Office Visit Hematology and Oncology Parviz Modi MD [facility] HEMATOLOGY/[place] [address] Miroslava Pelayo APRN [facility] HEMATOLOGY/[place] [address] 02/24/2022 Office Visit Wound Care 02/24/2022 Appointment Hematology and Oncology 02/26/2022 Office Visit Neurology Leni Bustamante MD [facility] DR NEUROLOGY DEPT. 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 difficileComment: C. diffiicile 08/20/2021 testing positive 05/25/21. documented as of this encounter Care Teams Supervisor [employer] Relationship Specialty Start Date End Date Beatriz Maurice PA PCP - General Family Medicine 05/06/21 [address] [place] [address] documented as of this encounter
--- OUTSIDE RECORDS SUMMARY | 2022-02-14 11:09 | XMS_ITS | Encounter Summary ---
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 ?? This RN called Herber and his SO Morales today to check in. ?? He received 1L hydration and magnesium yesterday. ?? Herber continues with bilateral UE tremors ?d/t tacrolimus ?? Herber continues to struggle with both fluid and oral intake. Herber's fluid intake is between 30-50oz/day. ?? We discussed the importance of hydration for overall well being and kidney health. ?? Morales is working hard to support Herber and is pushing fluids/nutrition. Herber will try to increase both over the weekend. A: Herber and Morales verbalized understanding of the plan. P: RTC 12/09 for labs, MD visit, hydration and electrolytes Continue to provide supportive care as needed. documented in this encounter Plan of Treatment Upcoming Encounters Date Type Specialty Care Team Description 02/18/2022 Infusion Hematology and Oncology 02/21/2022 Infusion Hematology and Oncology 02/24/2022 Appointment Hematology and Oncology 02/24/2022 Office Visit Hematology and Oncology Parviz Modi MD [facility] DR HEMATOLOGY/[place] [address] Miroslava Pelayo APRN [facility] DR HEMATOLOGY/[place] [address] 02/24/2022 Office Visit Wound Care 02/24/2022 Appointment Hematology and Oncology 02/26/2022 Office Visit Neurology Leni Bustamante MD [facility] DR NEUROLOGY DEPT. [place], [place] [address] (Wo rk) documented as of this encounter Visit Diagnoses Not on filedocumented in this encounter Additional Health Concerns Infection Onset Date Last Indicated Resolved Time History of C. difficileComment: C. diffiicile 08/20/2021 testing positive 05/25/21. documented as of this encounter Care Teams Diamond Grader Relationship Specialty Start Date End Date Beatriz Maurice PA PCP - General Family Medicine 05/06/21 [address] [place] [address] documented as of this encounter
--- OUTSIDE RECORDS SUMMARY | 2022-02-14 11:09 | XMS_ITS | Encounter Summary ---
:1960 Author Organization [facility] [place] [address] Care Team Providers Name Role Phone Beatriz Maurice Primary Care Provider Encounter Details Date Type Department Care Team Description 12/19/2021 Telephone Hematology and Oncol corinne at [facility] [place] [address] Social History Tobacco Use Types Packs/Day [...] encounter Miscellaneous Notes Telephone Encounter - Annika Santos - 12/19/2021 2:54 PM EDT Community Health Cartography Professor lvm with Herber Nielsen's partner to return my call. I am checkingto see if I can assist them with any community resources. Annika Santos documented in this encounter Plan of Treatment Upcoming Encounters Date Type Specialty Care Team Description 02/18/2022 Infusion Hematology and Oncology 02/21/2022 Infusion Hematology and Oncology 02/24/2022 Appointment Hematology and Oncology 02/24/2022 Office Visit Hematology and Oncology Parviz Modi MD [facility] DR HEMATOLOGY/[place] [address] Miroslava Pelayo APRN [facility] HEMATOLOGY/[place] [address] 02/24/2022 Office Visit Wound Care 02/24/2022 Appointment Hematology and Oncology 02/26/2022 Office Visit Neurology Leni Bustamante MD [facility] NEUROLOGY DEPT. [place], [place] [address] (Wo rk) documented as of this encounter Visit Diagnoses Not on filedocumented in this encounter Additional Health Concerns Infection Onset Date Last Indicated Resolved Time History of C. difficileComment: C. diffiicile 08/20/2021 testing positive 05/25/21. documented as of this encounter Care Teams Social Work Job Titles Relationship Specialty Start Date End Date Beatriz Maurice PA PCP - General Family Medicine 05/06/21 [address] [place] [address] documented as of this encounter
--- OUTSIDE RECORDS SUMMARY | 2022-02-14 11:09 | XMS_ITS | Encounter Summary ---
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 [address] Referral ID Status Reason Start Date Expiration Date Visits V isits Requested Authorized [id number] Authorized 11/22/2021 11/22/2022 99 99 Encounter Details Date Type Department Care Team Description 12/09/2021 Hospital Encounter Hematology and Hypomag nesemia; Oncology at [facility] S/P allogeneic bone marrow t ransplant; [facility] Acute [place] [address] Social History Tobacco Use Types Packs/Day [...] of Sensura Flako Soft Convex One-piece Pouch #[id number] per month. Ostomy Supplies Misc Dispense 2 boxes 40 each 11 2 (20/box) of Brava Elastic Barrier strips #[id number] per month. Ostomy Supplies Misc Dispense 1 [...] Capsule mouth 3 times daily. acyclovir (Zovirax) Take 1 tablet by mouth 60 tablet 3 11/1612/10/2021 800 mg Tablet 2 times daily. nystatin (Mycostatin) Take 5 [...] FLT3 mutation Colostomy Belt Dispense 1 Sensura Sanford 1 each 11 2 12/13/2021 (Ostomy Belt Medium) Belt #4237 per month. [facility] documented as of this encounter Progress Notes Latasha Caceres RN - 12/09/2021 1:04 PM EDT Herber Iverson Jr., 61 y.o. male with 1. Hypomagnesemia 2. S/P allogeneic bone marrow transplant 3. Acute myeloid leukemia in remission is here for infusion of hydration S: Pt. offers no complaints. O: Orders independently verified for drug name, route and dosage by Latasha Caceres RN and on site pharmacist REACTIONS (DESCRIPTION, TIME, INTERVENTION AND EFFECTIVENESS) none A: Pt. Tolerated treatment well. Herber Iverson confirms that all questions and issues have been addressed. P: Return to clinic per routine. Patient Name: Herber Iverson Jr. Patient Age: 61 y.o. Birthdate: 1960 Admit date: 12/09/2021 Attending Physician: No att. providers found documented in this encounter Plan of Treatment Upcoming Encounters Date Type Specialty Care Team Description 02/18/2022 Infusion Hematology and Oncology 02/21/2022 Infusion Hematology and Oncology 02/24/2022 Appointment Hematology and Oncology 02/24/2022 Office Visit Hematology and Oncology Parviz Modi MD [facility] HEMATOLOGY/[place] [address] Miroslava Pelayo, HEYDI [facility] DR HEMATOLOGY/[place] [address] 02/24/2022 Office Visit Wound Care 02/24/2022 Appointment Hematology and Oncology 02/26/2022 Office Visit Neurology Leni Bustamante MD [facility] DR NEUROLOGY DEPT. 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 documented in this encounter Administered Medications Inactive Administered Medications - up to 3 most recent administrations Medication Order MAR Action Action Date Dose Rate Site heparin (pf) (porcine) (100 Given 12/09/2021 2:28 PM EDT 500 Uni ts units/mL) flush 5 mL syringe 500 Units 500 Units (5 mL), Intravenous, ONCE PRN, 1 dose, Starting on Thu12/09/21 at 1253, Until Thu12/09/21 at 1428, Line Care, Dormant flush every 4 weeks, Routine sodium chloride 0.9 % (flush) (BD PosiFlush Given 12/09/2021 2:28 PM EDT 20 mLs Normal Saline 0.9) flush 20 mL 20 mL, Intravenous, EVERY 1 MIN PRN, Starting on Thu12/09/21 at 1253, Until Thu12/10/21 at 0438, Lab Draws, Implanted Port-IV flush after blood draws, Routine sodium chloride 0.9% infusion New Bag 12/09/2021 1:00 PM EDT 999 mL/hr 999 mL/hr 999 mL/hr, Intravenous, DAILY PRN, Starting on Thu12/09/21 at 1244, Until Thu12/10/21 at 0438, One liter over 1 hour documented in this encounter Additional Health Concerns Infection Onset Date Last Indicated Resolved Time History of C. difficileComment: C. diffiicile 08/20/2021 testing positive 05/25/21. documented as of this encounter Care Teams Dealer Compliance Representative Relationship Specialty Start Date End Date Beatriz Maurice PA PCP - General Family Medicine 05/06/21 [address] [place] [address] documented as of this encounter
--- OUTSIDE RECORDS SUMMARY | 2022-02-14 11:09 | XMS_ITS | Encounter Summary ---
:1960 Author Organization [facility] [place] [address] Care Team Providers Name Role Phone Beatriz Maurice Primary Care Provider Encounter Details Date Type Department Care Team Description 12/17/2021 Telephone Hematology and [place]cology [place] [address] Social History Tobacco Use Types Packs/Day [...] this encounter Miscellaneous Notes Telephone Encounter - Gayle Reyes RN - 12/17/2021 4:15 PM EDT Received lab results dated 12/05/21 & 12/12/21 via fax from [facility]. Results have been input into eDH. Latest Reference Range & Units 12/12/21 13:10 Sodium 136 - 145 136 (E) Potassium 3.5 - 5.1 5.1 (E) BUN 7 - 18 44 ! (E) Creatinine 0.7 - 1.3 3.2 ! (E) Calcium 8.5 - 10.1 9.7 (E) Magnesium 1.8 - 2.4 mg/dL 2.3 (E) Glucose Lvl 74 - 106 108 ! (E) Total Protein 6.4 - 8.2 7.9 (E) Albumin 3.4 - 5.0 3.7 (E) Total Bilirubin 0.2 - 1.0 0.5 (E) Alk Phos 46 - 116 342 ! (E) AST 15 - 37 21 (E) ALT 16 - 63 30 (E) !: Data is abnormal (E): External lab result Latest Reference Range & Units 12/05/21 13:00 Sodium 136 - 145 134 ! (E) Potassium 3.5 - 5.1 4.8 (E) BUN 7 - 18 29 ! (E) Creatinine 0.7 - 1.3 2.9 ! (E) Calcium 8.5 - 10.1 9.2 (E) Magnesium 1.8 - 2.4 mg/dL 1.7 ! (E) Glucose Lvl 74 - 106 103 (E) Total Protein 6.4 - 8.2 7.4 (E) Albumin 3.4 - 5.0 3.1 ! (E) Total Bilirubin 0.2 - 1.0 0.6 (E) Alk Phos 46 - 116 548 ! (E) AST 15 - 37 36 (E) ALT 16 - 63 45 (E) !: Data is abnormal (E): External lab result Note sent to Vanessa Palmer with lab results. Diagnosis: AML documented in this encounter Plan of Treatment Upcoming Encounters Date Type Specialty Care Team Description 02/18/2022 Infusion Hematology and Oncology 02/21/2022 Infusion Hematology and Oncology 02/24/2022 Appointment Hematology and Oncology 02/24/2022 Office Visit Hematology and Oncology Parviz Modi MD [facility] HEMATOLOGY/[place] [address] Miroslava Pelayo APRN [facility] DR HEMATOLOGY/[place] [address] 02/24/2022 Office Visit Wound Care 02/24/2022 Appointment Hematology and Oncology 02/26/2022 Office Visit Neurology Leni Bustamante MD [facility] DR NEUROLOGY DEPT. [place], [place] [address] (Wo rk) documented as of this encounter Procedures Procedure Name Priority Date/Time Associated Comments Diagnosis COMPREHENSIVE Routine 12/12/2021 1:10 PM Results for this METABOLIC PANEL EDT procedure ar e in (NON-FASTING) the results section. COMPREHENSIVE Routine 12/05/2021 1:00 PM Results for this METABOLIC PANEL EDT procedure ar e in (NON-FASTING) the results section. documented in this encounter Results (ABNORMAL) Comprehensive metabolic panel (non-fasting) (12/12/2021 1:10 PM EDT) athologist Signature Glucose Lvl 108 (A) 74 - 106 EXTERNAL LAB BUN 44 (A) 7 - 18 EXTERNAL LAB Creatinine 3.2 (A) 0.7 - 1.3 EXTERNAL LAB Sodium 136 136 - 145 EXTERNAL LAB Potassium 5.1 3.5 - 5.1 EXTERNAL LAB Calcium 9.7 8.5 - 10.1 EXTERNAL LAB Total Protein 7.9 6.4 - 8.2 EXTERNAL LAB Albumin 3.7 3.4 - 5.0 EXTERNAL LAB Total Bilirubin 0.5 0.2 - 1.0 EXTERNAL LAB Alk Phos 342 (A) 46 - 116 EXTERNAL LAB AST 21 15 - 37 EXTERNAL LAB ALT 30 16 - 63 EXTERNAL LAB Magnesium 2.3 1.8 - 2.4 EXTERNAL LAB mg/dL Specimen (Source) Anatomical Collection Method Collection Time Re ceived Time Location / / Volume Laterality Blood 12/12/2021 1:10 PM EDT Historical Provider CHEMISTRY ORDERABLES Performing Organization Address City/State/ZIP Code Phon e Number EXTERNAL LAB (ABNORMAL) Comprehensive metabolic panel (non-fasting) (12/05/2021 1:00 PM EDT) athologist Signature Glucose Lvl 103 74 - 106 EXTERNAL LAB BUN 29 (A) 7 - 18 EXTERNAL LAB Creatinine 2.9 (A) 0.7 - 1.3 EXTERNAL LAB Sodium 134 (A) 136 - 145 EXTERNAL LAB Potassium 4.8 3.5 - 5.1 EXTERNAL LAB Calcium 9.2 8.5 - 10.1 EXTERNAL LAB Total Protein 7.4 6.4 - 8.2 EXTERNAL LAB Albumin 3.1 (A) 3.4 - 5.0 EXTERNAL LAB Total Bilirubin 0.6 0.2 - 1.0 EXTERNAL LAB Alk Phos 548 (A) 46 - 116 EXTERNAL LAB AST 36 15 - 37 EXTERNAL LAB ALT 45 16 - 63 EXTERNAL LAB Magnesium 1.7 (A) 1.8 - 2.4 EXTERNAL LAB mg/dL Specimen (Source) Anatomical Collection Method Collection Time Re ceived Time Location / / Volume Laterality Blood 12/05/2021 1:00 PM EDT Historical Provider CHEMISTRY ORDERABLES Performing Organization Address City/State/ZIP Code Phon e Number EXTERNAL LAB documented in this encounter Visit Diagnoses Not on filedocumented in this encounter Additional Health Concerns Infection Onset Date Last Indicated Resolved Time History of C. difficileComment: C. diffiicile 08/20/2021 testing positive 05/25/21. documented as of this encounter Care Teams Aircraft Instrument Tester Relationship Specialty Start Date End Date Beatriz Maurice PA PCP - General Family Medicine 05/06/21 [address] [place] [address] documented as of this encounter
--- OUTSIDE RECORDS SUMMARY | 2022-02-14 11:10 | XMS_ITS | Encounter Summary ---
:1960 Author Organization [facility] Address [address] [place] [address] Care Team Providers Name Role Phone Beatriz Maurice Primary Care Provider Encounter Details Date Type Department Care Team Description 12/05/2021 Orders Only [facility] Catie narvaez HEMATOLOGY[place] [address] DEPT. [phone] [place], [place] [address] (Wo rk) Social History Tobacco [...] [facility] DR HEMATOLOGY/[place] [address] Miroslava Pelayo APRN [facility] HEMATOLOGY/[place]COL[place] [address] 02/24/2022 Office Visit Wound Care 02/24/2022 Appointment Hematology and Oncology 02/26/2022 Office Visit Neurology Leni Bustamante MD [facility] NEUROLOGY DEPT. [place], [place] [address] (Wo rk) documented as of this encounter Visit Diagnoses Not on filedocumented in this encounter Additional Health Concerns Infection Onset Date Last Indicated Resolved Time History of C. difficileComment: C. diffiicile 08/20/2021 testing positive 05/25/21. documented as of this encounter Care Teams Clip Baker Relationship Specialty Start Date End Date Beatriz Maurice PA PCP - General Family Medicine 05/06/21 [address] [place] [address] documented as of this encounter
--- OUTSIDE RECORDS SUMMARY | 2022-02-14 11:10 | XMS_ITS | Encounter Summary ---
:1960 Author Organization [facility] [place] [address] Care Team Providers Name Role Phone Beatriz Maurice Primary Care Provider Encounter Details Date Type Department Care Team Description 12/03/2021 Telephone Hematology [place] [address] [place] [address] Social History Tobacco Use Types Packs/Day [...] Telephone Encounter - Cortney Givens RD - 12/03/2021 10:13 AM EDT [facility] Progress Note Patient Name: Herber Iverson JrNabil Diagnosis: leukemia Treatment: s/p MUD stem cell transplant Assessment: HPI Pt is 61 yo male s/p MUD stem cell transplant, 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 . Course c/b need for TPN + PO intake while inpatient. 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 Pt's appetite is not getting any better since d/c. Taste changes and some nausea are the main barriers to eating. He is trying to increase his intake and also push fluids, but it is difficult. Past Medical History: Diagnosis Date ??? AML (acute myeloblastic leukemia) 04/2021 ??? BPH (benign prostatic hyperplasia) ??? GERD (gastroesophageal reflux disease) ??? Paroxysmal atrial fibrillation ??? 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 Wt Readings from Last 20 Encounters: 11/29/21 98.7 kg (217 lb 9.6 oz) [...] 08/12/21 99.2 kg (218 lb 12.8 oz) 08/08/21 95.3 kg (210 lb 1.6 oz) 07/12/21 99.6 kg (219 lb 9.3 oz) 07/12/21 99.6 kg (219 lb 9.3 oz) 07/04/21 101.9 kg (224 lb 9.6 oz) 07/01/21 100.7 kg (222 lb) 8% wt loss x 1 month - significant Estimated Needs: Calories: 2340 kcal (30 kcal/kg IBW) Protein: 94g (1.2g/kg IBW) Meds: tacrolimus, mag ox Labs: Na 130 Treatment related side effects: No taste, minimal appetite Intervention: - sent via email: taste changes, how to make a high calorie shake - Enc fluids - Enc small, frequent meals Monitoring: Will f/u with pt in 2-3 weeks. Pt encouraged to contact as needed. Cortney Givens RD, CNSC, LD documented in this encounter Plan of Treatment Upcoming Encounters Date Type Specialty Care Team Description 02/18/2022 Infusion Hematology and Oncology 02/21/2022 Infusion Hematology and Oncology 02/24/2022 Appointment Hematology and Oncology 02/24/2022 Office Visit Hematology and Oncology Parviz Modi MD [facility] DR HEMATOLOGY/[place] [address] Miroslava Pelayo APRN [facility] DR HEMATOLOGY/[place] [address] 02/24/2022 Office Visit Wound Care 02/24/2022 Appointment Hematology and Oncology 02/26/2022 Office Visit Neurology Leni Bustamante MD [facility] DR NEUROLOGY DEPT. [place], [place] [address] (Wo rk) documented as of this encounter Visit Diagnoses Not on filedocumented in this encounter Additional Health Concerns Infection Onset Date Last Indicated Resolved Time History of C. difficileComment: C. diffiicile 08/20/2021 testing positive 05/25/21. documented as of this encounter Care Teams Orchid Grower Relationship Specialty Start Date End Date Beatriz Maurice PA PCP - General Family Medicine 05/06/21 [address] [place] [address] documented as of this encounter
--- OUTSIDE RECORDS SUMMARY | 2022-02-14 11:10 | XMS_ITS | Encounter Summary ---
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 [address] Referral ID Status Reason Start Date Expiration Date Visits V isits Requested Authorized [id number] Authorized 11/22/2021 11/22/2022 99 99 Encounter Details Date Type Department Care Team Description 11/28/2021 Infusion Hematology Oncology at [facility]; [facility] S/P allogeneic bone marrow t ransplant; [address] [place] [address] Acute myeloid leukemia [place]; [place], [place] [address] STACIE (acute kidney injury); [phone] Dehydration Social History Tobacco Use Types Packs/Day [...] Sign Reading Time Taken Comments Blood Pressure 111/62 11/28/2021 8:13 AM EDT Pulse 88 11/28/2021 8:13 AM EDT Temperature 36.4 ??C (97.5 ??F) 11/28/2021 8:13 AM EDT Respiratory Rate 20 11/28/2021 8:13 AM EDT Oxygen Saturation 100% 11/28/2021 8:13 AM EDT Inhaled Oxygen Concentration - - Weight 98.5 kg (217 lb 3.2 oz) 11/28/2021 8:13 AM EDT Height 178 cm (5' 10.08) 11/28/2021 8:13 AM EDT Body Mass Index 31.09 11/28/2021 8:13 AM EDT documented in this encounter Progress Notes Meg Serrano RN - 11/28/2021 8:30 AM EDT INFUSION THERAPY ADMINISTRATION NOTES DIAGNOSIS: AML s/p MUD allogenic BMT REASON FOR VISIT: Hydration & IV Magnesium SUBJECTIVE Mr. Iverson is here for hydration and . He is feeling very weak, tired, reports very low appetite and having a hard time with getting fluids in. OBJECTIVE LAB DATA: Labs drawn 11/25/2021 at [facility]. Magnesium 0.65. Confirmed with Aubrey Palmer APRN that he should have Magnesium 2 grams IV today. Pre administration: Orders independently verified for drug name, route, and dosage by Marty Serrano RN and pharmacist on-site. REACTIONS (DESCRIPTION, TIME, INTERVENTION AND EFFECTIVENESS) none ASSESSMENT Mr. Iverson was awake, alert and tolerated treatment well. PLAN Mr. Iverson has appt scheduled for Thursday, 12/02 at [facility] . documented in this encounter Plan of Treatment Upcoming Encounters Date Type Specialty Care Team Description 02/18/2022 Infusion Hematology and Oncology 02/21/2022 Infusion Hematology and Oncology 02/24/2022 Appointment Hematology and Oncology 02/24/2022 Office Visit Hematology and Oncology Parviz Modi MD [facility] DR HEMATOLOGY/[place] [address] Miroslava Pelayo APRN [facility] HEMATOLOGY/[place] [address] 02/24/2022 Office Visit Wound Care 02/24/2022 Appointment Hematology and Oncology 02/26/2022 Office Visit Neurology Leni Bustamante MD [facility] NEUROLOGY DEPT. [place], [place] [address] (Wo rk) documented as of [...] Rate Site magnesium sulfate 2 g in sterile New Bag 11/28/2021 9:02 AM EDT 2 g 25 mL/hr water 50 mL infusion 2 g, Intravenous, ONCE, 1 dose, On Kassy 11/28/21 at 0915, Administer over 120 Minutes sodium chloride 0.9% infusion New Bag 11/28/2021 8:45 AM EDT 500 mL/hr 500 mL/hr 999 mL/hr, Intravenous, DAILY PRN, Starting on Kassy 11/28/21 at 0818, Until Kassy 11/28/21 at 1328, One liter over 1 hour documented in this encounter Additional Health Concerns Infection Onset Date Last Indicated Resolved Time History of C. difficileComment: C. diffiicile 08/20/2021 testing positive 05/25/21. documented as of this encounter Care Teams Mining Engineer Relationship Specialty Start Date End Date Beatriz Maurice PA PCP - General Family Medicine 05/06/21 [address] [place] [address] documented as of this encounter
--- OUTSIDE RECORDS SUMMARY | 2022-02-14 11:10 | XMS_ITS | Encounter Summary ---
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 [address] Referral ID Status Reason Start Date Expiration Date Visits V isits Requested Authorized [id number] Authorized 11/22/2021 11/22/2022 99 99 Encounter Details Date Type Department Care Team Description 12/05/2021 Infusion Hematology Oncology at [facility]; [facility] S/P allogeneic bone marrow t ransplant; [address] [place] [address] Drive Acute myeloid leukemia [place]; [place], [place] [address] STACIE (acute kidney injury); [phone] Dehydration Social History Tobacco Use Types Packs/Day [...] Sign Reading Time Taken Comments Blood Pressure 91/66 12/05/2021 1:39 PM EDT Pulse 84 12/05/2021 1:39 PM EDT Temperature 36.5 ??C (97.7 ??F) 12/05/2021 1:39 PM EDT Respiratory Rate 16 12/05/2021 1:39 PM EDT Oxygen Saturation 100% 12/05/2021 1:39 PM EDT Inhaled Oxygen Concentration - - Weight 95.2 kg (209 lb 12.8 oz) 12/05/2021 1:39 PM EDT Height 178 cm (5' 10.08) 12/05/2021 1:39 PM EDT Body Mass Index 30.04 12/05/2021 1:39 PM EDT documented in this encounter Progress Notes Basilio Dumas RN - 12/05/2021 2:00 PM EDT INFUSION THERAPY ADMINISTRATION NOTES ?? DIAGNOSIS: AML s/p MUD allogenic BMT REASON FOR VISIT: Hydration & IV Magnesium SUBJECTIVE ?? Mr. Iverson is here for hydration and magnesium. Labs drawn via port and sent to [facility] for processing. He continues to feel very weak, tired and shaky. ?? OBJECTIVE ?? LAB DATA: Drawn today at [facility] 1.7 Hayley Palmer APRN notified of labs ?? Pre administration: Orders independently verified for drug name, route, and dosage by BASILIO DUMAS, SHARON and pharmacist on-site. ?? REACTIONS (DESCRIPTION, TIME, INTERVENTION AND EFFECTIVENESS) none ASSESSMENT ?? Mr. Iverson was awake, alert and tolerated treatment well. ?? PLAN ?? Return to clinic as scheduled. documented in this encounter Plan of Treatment Upcoming Encounters Date Type Specialty Care Team Description 02/18/2022 Infusion Hematology and Oncology 02/21/2022 Infusion Hematology and Oncology 02/24/2022 Appointment Hematology and Oncology 02/24/2022 Office Visit Hematology and Oncology Parviz Modi MD [facility] DR HEMATOLOGY/[place] [address] Miroslava Pelayo APRN [facility] HEMATOLOGY/[place] [address] 02/24/2022 Office Visit Wound Care 02/24/2022 Appointment Hematology and Oncology 02/26/2022 Office Visit Neurology Leni Bustamante MD [facility] ER NEUROLOGY DEPT. [place], [place] [address] (Wo rk) documented as of [...] sulfate 2 g in sterile New Bag 12/05/2021 2:00 PM EDT 2 g 25 mL/hr water 50 mL infusion 2 g, Intravenous, DAILY PRN, Starting on Kassy 12/05/21 at 1352, Until Kassy 12/05/21 at 1749, Administer over 120 Minutes, hypomag post-stem cell transplant, Please give 2 gms for Magnesium less than lower limit of normal sodium chloride 0.9% infusion New Bag 12/05/2021 1:37 PM EDT 999 mL/hr 999 mL/hr 999 mL/hr, Intravenous, DAILY PRN, Starting on Kassy 12/05/21 at 1331, Until Kassy 12/05/21 at 1749, One liter over 1 hour documented in this encounter Additional Health Concerns Infection Onset Date Last Indicated Resolved Time History of C. difficileComment: C. diffiicile 08/20/2021 testing positive 05/25/21. documented as of this encounter Care Teams Vp Delivery Relationship Specialty Start Date End Date Beatriz Maurice PA PCP - General Family Medicine 05/06/21 [address] [place] [address] documented as of this encounter
--- OUTSIDE RECORDS SUMMARY | 2022-02-14 11:10 | XMS_ITS | Encounter Summary ---
:1960 Author Organization [place] [address] Care Team Providers Name Role Phone Beatriz Maurice Primary Care Provider Reason for Visit Auth/Cert Specialty Diagnoses / Procedures Referred By Contact Refer red To Contact Diagnoses infusion Procedures INFUSION Referral ID Status Reason Start Date Expiration Date Visits Requ ested Visits Authorized [id number] 1 1 Encounter Details Date Type Department Care Team Description 11/22/2021 Hospital Encounter Hematology and S/P all ogeneic bone marrow transplant; Oncology at [facility] [place] [address] Social History Tobacco Use Types Packs/Day [...] Sig Dispensed Refills Start Date End Date tamsulosin (Flomax) Take 1 capsule by 90 [...] Supplies Misc Dispense 2 boxes 20 each 2 (10/box) of S[employer]ura [place] Soft Convex One-piece Pouch #[id number] per month. Ostomy Supplies Misc Dispense 2 boxes 40 each 2 (20/box) of Brava Elastic Barrier strips #[id number] per month. Ostomy Supplies Misc Dispense 1 box 50 each 08/20/2021 (50/box) of a generic no-sting skin barrier wipe per month. loperamide (Imodium Take 1 capsule by 90 tablet 0 2 12/09/2021 A-D) 2 mg Capsule mouth 3 times daily. metoprolol succinate Take 1 tablet by mouth 30 tablet 5 11/202112/13/2021 XL (Toprol-XL) 50 mg daily. Tablet Sustained Release 24 hr vancomycin (Vancocin) Take 1 capsule by 60 capsule 5 022 02/03/2022 125 mg Capsule mouth 2 times daily. sulfamethoxazole-trime Take 1 tablet by mouth 12 tablet 5 0 11/18/2021 12/13/2021 thoprim DS (Bactrim three times a week. DS) 800-160 mg Tablet Please start on 11/21. Take 3 time a week on Thursday, Thursday, and Thursday acyclovir (Zovirax) Take 1 tablet by mouth 60 tablet 0 04/0 10/202112/09/2021 800 mg Tablet 2 times daily. fluconazole (Diflucan) Take 2 tablets by 60 tablet 0 2 12/17/2021 200 mg Tablet mouth daily for 30 days. pantoprazole EC Take 1 tablet by mouth 90 tablet 3 11/17/19 22 02/03/2022 (Protonix) 40 mg daily. Tablet, Delayed Release (E.C.) gabapentin (Neurontin) Take 2 capsules by 90 capsule 12 11/1512/13/2021 100 mg Capsule mouth 3 times daily. tacrolimus (Prograf) 1 Take 1 capsule by 30 capsule 0 202112/13/2021 mg CapsuleIndications: mouth nightly for 30 Acute myeloid leukemia days. in remission tacrolimus (Prograf) Take 3 capsules by 30 capsule 0 022 12/02/2021 0.5 mg mouth daily. CapsuleIndications: Acute myeloid leukemia in remission rosuvastatin (Crestor) Take 1 tablet by mouth 90 tablet 3 0 11/15/2021 02/10/2022 40 mg Tablet daily. aspirin 81 mg Tablet, Take 81 mg by mouth 30 tablet 3 11/1502/03/2022 Chewable daily. gilteritinib (Xospata) Take 3 tablets (120 90 tablet 0 08/1712/13/2021 40 mg mg) by mouth daily. 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 documented as of this encounter Progress Notes Katie Hinds RN - 11/22/2021 10:32 AM EDT Patient Name: Herber Iverson Jr. Patient Age: 61 y.o. Birthdate: 1960 Admit date: 11/22/2021 Attending Physician: No att. providers found Access visit. See MAR and/or flowsheet. documented in this encounter Plan of Treatment Upcoming Encounters Date Type Specialty Care Team Description 02/18/2022 Infusion Hematology and Oncology 02/21/2022 Infusion Hematology and Oncology 02/24/2022 Appointment Hematology and Oncology 02/24/2022 Office Visit Hematology and Oncology Parviz Modi MD [facility] DR HEMATOLOGY/[place] [address] Miroslava Pelayo APRN [facility] [address] HEMATOLOGY/[place] [address] 02/24/2022 Office Visit Wound Care 02/24/2022 Appointment Hematology and Oncology 02/26/2022 Office Visit Neurology Leni Bustamante MD [facility] ER DR NEUROLOGY DEPT. [place], [place] [address] (Wo rk) documented as of this encounter Procedures Procedure Name Priority Date/Time Associated Comments Diagnosis SCAN, PERIPHERAL BLOOD STAT 11/22/2021 12:15 R esults for this PM EDT procedure are i n the results section. HEMOGRAM STAT 11/22/2021 12:15 S/P allogeneic bone Resu lts for this PM EDT marrow transplant procedure are in the results section. DIFFERENTIAL, STAT 11/22/2021 12:15 S/P allogeneic bone Res ults for this AUTOMATED PM EDT marrow transplant procedure are in the results section. HC CBC,PLT & AUTO DIFF STAT 11/22/2021 12:15 S/P allogeneic bone PM EDT marrow transplant TYPE AND SCREEN STAT 11/22/2021 10:29 Results for this VALIDITY AM EDT procedure are i n the results section. CHIMERISM BLOOD REPORT Routine 11/22/2021 10:29 S/P allogeneic bone Results for this AM EDT marrow transplan t procedure are in Acute myeloid the results leukemia in section. remission .CHIMERISM BLOOD Routine 11/22/2021 10:29 S/P allogeneic bone Results for this AM EDT marrow transplan t procedure are in Acute myeloid the results leukemia in section. remission HC CHIMERISM W/COMP TO Routine 11/22/2021 10:29 S/P allogeneic bone BASELINE W/O CELL AM EDT marrow transpl ant SELECTION Acute myeloid leukemia in remission ABORH RECHECK STATUS STAT 11/22/2021 10:29 Res ults for this AM EDT procedure are i n the results section. ANTIBODY SCREEN MANUAL STAT 11/22/2021 10:29 R esults for this AM EDT procedure are i n the results section. ABORH TYPE MANUAL STAT 11/22/2021 10:29 Result s for this AM EDT procedure are i n the results section. EBV PCR QUANTITATIVE Routine 11/22/2021 10:29 S/P allogeneic b one Results for this AM EDT marrow transplant procedure are in the results section. HC FK-506 (TACROLIMUS) Routine 11/22/2021 10:29 S/P [...] are in the results section. HC LACTIC STAT 11/22/2021 10:29 S/P allogeneic bone Resu lts for this DEHYDROGENASE AM EDT marrow transplan t procedure are in Acute myeloid the results leukemia in section. remission HC IGG, SERUM Routine 11/22/2021 10:29 S/P allogeneic bone Res ults for this AM EDT marrow transplant procedure are in the results section. COMPREHENSIVE STAT 11/22/2021 10:29 S/P allogeneic bone Res ults for this METABOLIC PANEL AM EDT marrow transplant procedu re are in (NON-FASTING) the results section. documented in this encounter Results Scan, Peripheral Blood (11/22/2021 12:15 PM EDT) [facility] gist Method Time Signature Plat Estimate Decreased [facility] RBC Morphology Normal [facility] Specimen Anatomical Collection Method Collection Time Receive d Time (Source) Location / / Volume Laterality Blood 11/22/2021 12:15 11/22/2021 PM EDT 12:56 PM EDT Resulting Agency Comment Spec In Lab Parviz Modi MD HEMATOLOGY ORDERABLES Performing Organization Address City/State/[place] [address] (ABNORMAL) Differential, Automated (11/22/2021 12:15 PM EDT) [facility] Method Time Signature Neutrophils % 69.9 % [facility] Neutr Abs (ANC) 6.78 (H) 1.70 - [facility] 6.10 [facility] x10(3)/[facility] LABORATORY Lymphocytes % 9.2 % [facility] Lymphocytes Abs 0.9 0.[address] - [address] [facility] x10(3)/[facility] LABORATORY Monocytes % 17.1 % [facility] Monocyte Abs 1.7 (H) 0.3 - 0.9 [facility] x10(3)/[facility] LABORATORY Eosinophils % 0.8 % [facility] Eosinophils Abs 0.1 0.0 - 0.4 [facility] x10(3)/[facility] LABORATORY Basophils % 1.4 % [facility] Basophils Abs 0.1 0.0 - 0.1 [facility] x10(3)/[facility] LABORATORY Immature Gran % 1.60 % [facility] Comment: Immature granulocytes(IG's)percentage an d absolute count will include metamyelocytes, myelocytes, and promyelo cytes. Blood smears from CBCs yielding IG's will be scanned manually for concor dance. If this scan disagrees with the automated IG or if promyelocytes are not ed, a manual differential will be performed. Zara Gran Abs 0.16 (H) 0.00 - 0.04 x10(3)/[facility] LABORATORY Specimen Anatomical Collection Method Collection Time Receive d Time (Source) Location / / Volume Laterality Blood 11/22/2021 12:15 11/22/2021 PM EDT 12:56 PM EDT Resulting Agency Comment Spec In Lab Parviz Modi MD HEMATOLOGY ORDERABLES Performing Organization Address City/State/[place] [address] (ABNORMAL) Hemogram (11/22/2021 12:15 PM EDT) [facility] Method Time Signature WBC 9.7 (H) 4.0 - 9.5 [facility] x10(3)/[facility] LABORATORY RBC 2.90 (L) 4.58 - [facility] 5.54 [facility] x10(6)/[facility] LABORATORY Hemoglobin 8.9 (L) 13.7 - [facility] 16.[facility] g/dL [facility] Hematocrit 26.4 (L) 40.5 - [facility] 48.5 % [facility]ORATORY MCV 91.0 82.9 - [facility] 93.1 [facility] LABORATORY MCH 30.7 27.5 - [facility] 32.1 pg [facility] LABORATORY MCHC 33.7 32.0 - [facility] 35.7 g/dL [facility]ORATORY Platelets 51 (L) 145 - 357 [facility] x10(3)/[facility] LABORATORY RDWSD 48.0 (H) 36.0 - [facility] 45.0 [facility] LABORATORY RDWCV 15.7 (H) 11.4 - [facility] 13.8 % [facility] LABORATORY MPV 13.7 (H) 7.6 - 12.9 [facility] LABORATORY nRBC % Auto 0.7 % [facility] nRBC Abs Auto 0.070 (H) 0.000 - [facility] 0.000 [facility] x10(3)/[facility] LABORATORY Specimen Anatomical Collection Method Collection Time Receive d Time (Source) Location / / Volume Laterality Blood 11/22/2021 12:15 11/22/2021 PM EDT 12:56 PM EDT Resulting Agency Comment Spec In Lab Parviz Modi MD HEMATOLOGY ORDERABLES Performing Organization Address City/State/[place] [address] CHIMERISM BLOOD REPORT (11/22/2021 10:29 AM EDT) Component Value Ref Test Analysis Performed At [facility] Range Method Time Signature Chimerism Chimerism Blood Report JIA Blood Report [facility] Post-Stem Cell Transplant Assessment of Engraftment by [facility] rt Tandem Repeat HOSPITAL (STR) Analysis Using PCR and Capillary Electrophoresis LABORATORY INDICATION FOR STUDY: Patient is day approximately 30 days post-transplant. Assess engraftment status. ANALYSIS: Examination of peripheral blood DNA for asse ssment of engraftment. SAMPLES: 1. 11/22/2021 - peripheral blood, unfractionated RESULTS: The DNA tested was found to contain: 1. Peripheral blood, unfractionated: greater than 95% donor DNA INTERPRETATION: These results indicate a complete donor khushi erism. This analysis is based on 15 informative STR loci. METHODS: Multiplex PCR was performed on each of the samples with fluorescently labeled primer sets directed at sixteen (16) of the followin g STR loci: Amelogenin, CSF1PO, O83S932, G99E569, D18S51, L56J734, D21S1 1, N1S4788, K0F2929, O9Q454, A1T049, X4K8022, FGA, TH01, TPOX, vWA. PCR products were [...] purity of each fra ction or sales service representative fractions when using a new [...] acteristics determined by the Clinical Genomics and [employer] (CGAT) Laboratory at [facility]. It has not been cleared or approved by the FDA. The laboratory is regulated under CLIA as qualified to perform high-complexity testing. This elder t is used for clinical purposes. It should not be regarded as investigational or fo r research. Reviewed by: Caron Collier, Ph.D., [facility] ?Tennis Desk Team Member, Molecular Pathology Specimen Anatomical Collection Method Collection Time Receive d Time (Source) Location / / Volume Laterality 11/22/2021 10:29 11/22/2021 2:06 AM EDT PM EDT Hayleywendy Palmer APRN HEMATOLOGY ORDERABLES Performing Organization Address City/[facility]/ZIP Code Phon e Number [address] Type and Screen Validity (11/22/2021 10:29 AM EDT) [facility] gist Method Time Signature T&S only valid [facility] LABORATORY Comment: This Type and Screen result is only valid at the [facility] Hospital Specimen Anatomical Collection Method Collection Time Receive d Time (Source) Location / / Volume Laterality Blood Venous Draw / 11/22/2021 10:29 11/22/2021 Unknown AM EDT 10:50 AM EDT Resulting Agency Comment Spec In Lab Parviz Modi MD BLOOD BANK ORDERABLES Performing Organization Address City/[facility]/ZIP [place] [address] ABORH Recheck Status (11/22/2021 10:29 AM EDT) [facility] gist Method Time Signature ABORH Type Completed [facility] LABORATORY Specimen Anatomical Collection Method Collection Time Receive d Time (Source) Location / / Volume Laterality Blood Venous Draw / 11/22/2021 10:29 11/22/2021 Unknown AM EDT 10:50 AM EDT Resulting Agency Comment Spec In Lab Parviz Modi MD BLOOD BANK ORDERABLES Performing Organization Address City/[facility]/Z[place] [address] Antibody screen manual (11/22/2021 10:29 AM EDT) Analysis Performed At [facility] logist Time Signature AB Screen Negative [facility] LABORATORY Specimen Anatomical Collection Method Collection Time Receive d Time (Source) Location / / Volume Laterality Blood Venous Draw / 11/22/2021 10:29 11/22/2021 Unknown AM EDT 10:50 AM EDT Resulting Agency Comment Spec In Lab Parviz Modi MD BLOOD BANK ORDERABLES Performing Organization Address City/State/[place] [address] ABORh Type Manual (11/22/2021 10:29 AM EDT) Patholo gist Method Time Signature Expires at 11/25/2021 [facility] on: [facility] ABORh Type O Pos [facility] Comment: 11/22/2021 11:14 ??CHASDM Allogeneic Transplant Recipient: 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 Recipient pre-Transplant ABORH: O pos Donor ABORH: O neg Any questions/concerns call Ext [phone]. Specimen Anatomical Collection Method Collection Time Receive d Time (Source) Location / / Volume Laterality Blood Venous Draw / 11/22/2021 10:29 11/22/2021 Unknown AM EDT 10:50 AM EDT Resulting Agency Comment Spec In Lab Parviz Modi MD BLOOD BANK ORDERABLES Performing Organization Address City/State/[place] [address] .Chimerism Blood (11/22/2021 10:29 AM EDT) Analysis Performed At Patho logist Time Signature Chimerism Complete [facility] LABORATORY Specimen Anatomical Collection Method Collection Time Receive d Time (Source) Location / / Volume Laterality Blood 11/22/2021 10:29 11/22/2021 2:06 AM EDT PM EDT Resulting Agency Comment Spec In Lab Hayley Palmer APRN HEMATOLOGY ORDERABLES Performing Organization Address City/State/ZIP Code Phon e Number [place] [id number] Tacrolimus level (11/22/2021 10:29 AM EDT) P athologist Signature Tacrolimus Lvl 12.6 ng/mL [facility] Comment: Trough therapeutic range is [...] (Source) Location / / Volume Laterality Blood 11/22/2021 10:29 11/22/2021 AM EDT 11:04 AM EDT Resulting Agency Comment Spec In Lab Parviz Modi MD CHEMISTRY ORDERABLES Performing Organization Address City/State/ZIP Code Phon e Number [address] IgG (11/22/2021 10:29 AM EDT) athologist Signature IgG 1,304 700 - 1,600 JIA ARASELI mg/dL [facility] Comment: Pediatric Reference Intervals obtained f rom the Caliper Reference Interval project. [email or web address] roject/index.html Specimen Anatomical Collection Method Collection Time Receive d Time (Source) Location / / Volume Laterality Blood 11/22/2021 10:29 11/22/2021 AM EDT 11:04 AM EDT Resulting Agency Comment Spec In Lab Parviz Modi MD IMMUNOLOGY ORDERABLES Performing Organization Address City/State/ZIP Code Phon e Number [address] (ABNORMAL) EBV PCR Quantitative (11/22/2021 10:29 AM EDT) Patholo gist Method Time Signature EBV DNA BY <35 (A) Undetected JIA MARX PCR IU/mL [facility] Comment: Result in log IU/mL is <1.54. EBV DNA is detected, but level present i s <35 IU/mL (<1.54 log IU/mL). This assay cannot accurately quantify EBV DNA below this level. ADDITIONAL INFORMATIO N The quantification range of this assay i s 35 to 100,000,000 IU/mL (1.54 log to 8.00 log IU/mL). Test ing was performed using the jasmeet EBV test ([employer] with the jasmeet 6800 System. Test Performed by: [facility] [address] [place] [address] [address] [place] Worker: Randal Aparicio M.D. Ph. D.; CLIA# [id number] Specimen Anatomical Collection Method Collection Time Receive d Time (Source) Location / / Volume Laterality Blood 11/22/2021 10:29 11/22/2021 5:03 AM EDT PM EDT Resulting Agency Comment Spec In Lab Parviz Modi MD IMMUNOLOGY ORDERABLES Performing Organization Address City/State/[place] [address] [facility] [address] Drive CMV PCR, Quantitative (11/22/2021 10:29 AM EDT) Patholo gist Method Time Signature CMV Quant Not Detected Not Detected JIA (Numeric) IU/mL [facility] Comment: Indication for Study: [...] (Source) Location / / Volume Laterality Blood 11/22/2021 10:29 11/25/2021 8:17 AM EDT AM EDT Resulting Agency Comment Spec In Lab Parviz Modi MD IMMUNOLOGY ORDERABLES Performing Organization Address City/State/[place] [address] [facility] [address] Drive (ABNORMAL) Phosphorus (11/22/2021 10:29 AM EDT) P athologist Signature Phosphorus 5.0 (H) 2.5 - 4.5 [facility] mg/dL [facility] Specimen Anatomical Collection Method Collection Time Receive d Time (Source) Location / / Volume Laterality Blood 11/22/2021 10:29 11/22/2021 AM EDT 11:04 AM EDT Resulting Agency Comment Spec In Lab Parviz Modi MD CHEMISTRY ORDERABLES Performing Organization Address City/[facility]/ZIP Code Phon e Number [address] (ABNORMAL) Magnesium (11/22/2021 10:29 AM EDT) P athologist Signature Magnesium 0.59 (L) 0.69 - 1.07 [facility] mmol/L [facility]ORY Specimen Anatomical Collection Method Collection Time Receive d Time (Source) Location / / Volume Laterality Blood 11/22/2021 10:29 11/22/2021 AM EDT 11:04 AM EDT Resulting Agency Comment Spec In Lab Parviz Modi MD CHEMISTRY ORDERABLES Performing Organization Address City/[facility] [place] [address] (ABNORMAL) Comprehensive metabolic panel (non-fasting) (11/22/2021 10:29 AM EDT) P athologist Signature Glucose Lvl 131 65 - 199 [facility] mg/dL [facility] Comment: Diabetes: >=200 mg/dL plus symp toms BUN 39 (H) 10 - 20 mg/dL [facility] Creatinine 3.22 (H) 0.80 - 1.50 mg/dL [facility] Sodium 136 135 - 145 mmol/L [facility] Potassium 4.6 3.5 - 5.0 mmol/L [facility] Comment: Please note: ??Patients with WBC >100,00 0 may have falsely elevated Potassium levels. ??For accurate Potassium quantif ication in these patients send serum separator tube (gold top) for subsequent determinations. ??Contact the Clinical Chemistry Laboratory if there are any qu estions. Chloride 103 98 - 107 mmol/L [facility] CO2 18 (L) 22 - 31 mmol/L [facility] Anion Gap 15 5 - 15 mmol/L [facility] Calcium 9.4 8.5 - 10.5 mg/dL [facility] Total Protein 7.2 6.1 - 8.0 g/dL [facility] Albumin 3.7 3.2 - 5.2 g/dL [facility] AST 22 0 - 39 unit/L [facility] ALT 18 0 - 55 unit/L [facility] Alk Phos 132 (H) 40 - 130 unit/L [facility] Total Bilirubin 0.5 0.2 - 1.3 mg/dL [facility] Estimated GFR 20 (L) >=60 mL/min/1.73 m?? [facility] Comment: This patient? s estimated glomerular filtration rate (eGFR) is between 20 mL/min/1.73 m2 (patients with less muscl e mass per kg body weight) and 23 mL/min/1.73 m2 (patients with more muscl e [...] (Source) Location / / Volume Laterality Blood 11/22/2021 10:29 11/22/2021 AM EDT 11:04 AM EDT Resulting Agency Comment Spec In Lab Parviz Modi MD CHEMISTRY ORDERABLES Performing Organization Address City/State/[place] [address] (ABNORMAL) Lactate Dehydrogenase (11/22/2021 10:29 AM EDT) P athologist Signature LDH 368 (H) 110 - 220 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 difficileComment: C. diffiicile 08/20/2021 testing positive 05/25/21. documented as of this encounter Care Teams Growth Hacker Relationship Specialty Start Date End Date Beatriz Maurice PA PCP - General Family Medicine 05/06/21 [address] [place] [address] documented as of this encounter
--- OUTSIDE RECORDS SUMMARY | 2022-02-14 11:10 | XMS_ITS | Encounter Summary ---
:1960 Author Organization [place] [address] Care Team Providers Name Role Phone Beatriz Maurice Primary Care Provider Reason for Visit Reason Comments Follow-up Auth/Cert Specialty Diagnoses / Procedures Referred By Contact Refer red To Contact Diagnoses infusion Procedures INFUSION Referral ID Status Reason Start Date Expiration Date Visits Requ ested Visits Authorized [id number] 1 1 Encounter Details Date Type Department Care Team Description 11/22/2021 Office Visit Hematology and Radha Modi MD [facility] HEMATOLOGY/[place] [address] S/P allogeneic bone marrow transplant; Oncology at [facility] [place] Miroslava Pelayo APRN [facility] [address] HEMATOLOGY/[place] [address] Acute myeloid leukemia in remission [facility] Hayley Palmer APRN [facility] HEMATOLOGY-[place] [address] [place] [id number] Social History Tobacco Use Types Packs/Day Years [...] Sign Reading Time Taken Comments Blood Pressure 95/64 11/22/2021 11:12 AM EDT Pulse 101 11/22/2021 11:12 AM EDT Temperature 36.7 ??C (98.1 ??F) 11/22/2021 11:12 AM EDT Respiratory Rate 24 11/22/2021 11:12 AM EDT Oxygen Saturation 98% 11/22/2021 11:12 AM EDT Inhaled Oxygen Concentration - - Weight 98.8 kg (217 lb 12.8 oz) 11/22/2021 11:12 AM wit h shoes EDT Height 178.8 cm (5' 10.39) 11/22/2021 11:12 AM with sh oes EDT Body Mass Index 30.9 11/22/2021 11:12 AM EDT documented in this encounter Progress Notes Hayley Palmer, HEYDI - 11/22/2021 11:30 AM EDT HEMATOLOGY/BMT CONSULTATION VISIT NOTE CHIEF COMPLAINT: Herber Iverson Jr. is a 61 y.o. male originally referred by Dr. Beatriz Maurice for evaluation of leukemia. He is seen in follow-up today. Data Review (From Recent Hospital discharge summary and the EMR) Admitted to [facility] 04/29/21 for leukocytosus. Discharged 04/30/21. 04/30/21 CBC - 40.7/8.1/ ANC - 3,210 ALC - 12.85 AMC [...] [place] [address]/10,000 ABL1 copies (135.80%.) 08/08/21 Discharged after reinduction with gilteritinib and venetoclax and initial clearance of FUND ACCOUNTING MANAGER leukemia. 08/12/21 LP - FELY 08/26/21 LP - FELY 09/05/20 LP - FELY 09/09/20 LP - FELY 09/12/20 BM Bx - Normocellular marrow (~50%) showing no increase in blasts, left-shifted erythroid hyperplasia and dysplasia, a relative granulocyte hypoplasia, and atypical megakaryocytes. NPM1 gene Mutation analysis - pending ORIGINAL HISTORY OF PRESENT ILLNESS Herber Iverson JrNabil dates the onset of his illness to earlier this summer. He has felt more tired than usual but attributed it to the humidity. About 3 weeks ago his fatigue was so bad that he went to a clinic in [facility]. He was evaluated for a UTI that was negative. 1 week ago today he saw his PCPwho ended up gatting a CBC showing abnormal counts and he was admitted to [facility]. Other than fatigue has had no fevers, chills or drenching sweats. Has lost a few lbs - <10. Appetite has been down recently. No bleeding or bruising. Was very actived when younger - played a lot of sports into his 40's. 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 He presents today with his partner, Morales. He is now day +31 s/p MUD allogeneic stem cell transplant. He comes in today feeling veryweak although unchanged from when he was discharged. He is using a walker. Reports not drinking much. No real appetite. Dry mouth. No bleeding, abnormal bruising. Herber reports he has not had any issues with speech or thought process No focal sxs of GVHD or infection. Current tacrolimus dose: 1.5 a.m. 0.5 pm Hold today's dose? Yes Fevers, chills, sweats - none Bleeding, bruising, melena - none Energy level - poor Appetite - no real appetite Colostomy -functioning well, no issues. 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 Social - has a girlfriend and his [...] PICHARDO: as above Gastrointestinal --Appetite: low --Nausea/vomiting/diarrhea/constipation: 5 minutes of nausea yesterday. No V/D/C. Genitourinary --Dysuria or hematuria: No Musculoskeletal --Muscle pain or weakness: No --Joint pain or swelling: No Immune System --Recent infections: No Hematology/Lymph --Bruising/bleeding/melena: No --Enlarged nodes or other masses: No Skin --Rashes or petechiae: No Other ROS: All negative PROBLEM LIST Patient Active Problem List Diagnosis Code ??? Acute leukemia C95.00 ??? Clostridium difficile colitis A04.72 ??? 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 AML (acute myeloblastic leukemia) C92.00 ??? Paroxysmal atrial fibrillation I48.0 ??? GERD (gastroesophageal reflux disease) K21.9 ??? BPH (benign prostatic hyperplasia) N40.0 MEDICATIONS Current Outpatient Medications Medication Instructions ??? acyclovir (ZOVIRAX) 800 mg, Oral, 2 TIMES DAILY ??? aspirin 81 mg, Oral, DAILY ??? Colostomy Belt (Ostomy Belt Medium) Misc Dispense 1 Sensura Flako Belt #[id number] per month. ??? famotidine (PEPCID) 40 mg, Oral, DAILY ??? flecainide (TAMBOCOR) 50 mg, Oral, [...] XL (TOPROL-XL) 50 mg, Oral, DAILY ??? Ostomy Supplies Misc Dispense 2 boxes ( 10/box) of Adapt Barrier rings #[id number] per month. ??? Ostomy Supplies Misc Dispense 2 boxes (10/box) of Sensura Flako Soft Convex One-piece Pouch #[id number] month. ??? Ostomy Supplies Misc Dispense 2 boxes (20/box) of Brava Elastic Barrier strips #[id number] per month. ??? Ostomy Supplies Misc Dispense [...] 1 mg, Oral, NIGHTLY ??? tacrolimus (PROGRAF) 1.5 mg, Oral, DAILY ??? tamsulosin (FLOMAX) 0.4 mg, Oral, DAILY ??? vancomycin (VANCOCIN) 125 mg, Oral, 2 TIMES DAILY ALLERGIES/ADR Allergies Allergen Reactions ??? Other [Unclassified Drug] Other (See Comments) Artificial Sweetners-lightheadedness, dizziness ??? Bactoshield Chg [Chlorhexidine Gluconate] Itching and Rash CHG wipes reported he gets a rash and is itchy. PHYSICAL EXAM Vitals: Vitals: 11/22/21 1112 BP: 95/64 Patient Position: Sitting Pulse: (!) 101 Resp: 24 Temp: 36.7 ??C (98.1 ??F) TempSrc: Temporal SpO2: 98% Weight: 98.8 kg (217 lb 12.8 oz) Height: 178.8 cm (5' 10.39) Gen Paul Craven is very weak and fatigued. HEENT - Sclerae anicteric; oral pharynx dry. No lesions Neck - Full range of motion, no palpable thyromegaly. Lungs - CTA, without wheezes or rales. Heart - RRR, S1,S2, no murmur, rub or gallop. Abd - soft, non-tender. Ostomy bag functioning Extremities - No edema. Skin - clear without bruising, rashes Neurologic - mildly tremulous hands otherwise grossly intact LABORATORY Recent Results (from the past 72 hour(s)) Lactate Dehydrogenase Result Value Ref Range LDH 368 (H) 110 - 220 unit/L Comprehensive metabolic panel (non-fasting) Result Value Ref Range Glucose Lvl 131 65 - 199 mg/dL BUN 39 (H) 10 - 20 mg/dL Creatinine 3.22 (H) 0.80 - 1.50 mg/dL Sodium 136 135 - 145 mmol/L Potassium 4.6 3.5 - 5.0 mmol/L Chloride 103 98 - 107 mmol/L CO2 18 (L) 22 - 31 mmol/L Anion Gap 15 5 - 15 mmol/L Calcium 9.4 8.5 - 10.5 mg/dL Total Protein 7.2 6.1 - 8.0 g/dL Albumin 3.7 3.2 - 5.2 g/dL AST 22 0 - 39 unit/L ALT 18 0 - 55 unit/L Alk Phos 132 (H) 40 - 130 unit/L Total Bilirubin 0.5 0.2 - 1.3 mg/dL Estimated GFR 20 (L) >=60 mL/min/1.73 m?? Magnesium Result Value Ref Range Magnesium 0.59 (L) 0.69 - 1.07 mmol/L Phosphorus Result Value Ref Range Phosphorus 5.0 (H) 2.5 - 4.5 mg/dL IgG Result Value Ref Range IgG 1,304 700 - 1,600 mg/dL Tacrolimus level Result Value Ref Range Tacrolimus Lvl 12.6 ng/mL ABORh Type Manual Result Value Ref Range Expires at 2359 on: 11/25/2021 ABORh Type O Pos Antibody screen manual Result Value Ref Range AB Screen Interp Negative ABORH Recheck Status Result Value Ref Range ABORH Type Recheck Completed Type and Screen Validity Result Value Ref Range T&S only valid at [facility] Hemogram Result Value Ref Range WBC 9.7 (H) 4.0 - 9.5 x10(3)/mcL RBC 2.90 (L) 4.58 - 5.54 x10(6)/mcL Hemoglobin 8.9 (L) 13.7 - 16.5 g/dL Hematocrit 26.4 (L) 40.5 - 48.5 % MCV 91.0 82.9 - 93.1 fL MCH 30.7 27.5 - 32.1 pg MCHC 33.7 32.0 - 35.7 g/dL Platelets 51 (L) 145 - 357 x10(3)/mcL RDWSD 48.0 (H) 36.0 - 45.0 fL RDWCV 15.7 (H) 11.4 - 13.8 % MPV 13.7 (H) 7.6 - 12.9 fL nRBC % Auto 0.7 % nRBC Abs Auto 0.070 (H) 0.000 - 0.000 x10(3)/mcL Differential, Automated Result Value Ref Range Neutrophils % 69.9 % Neutr Abs (ANC) 6.78 (H) 1.70 - 6.10 x10(3)/mcL Lymphocytes % 9.2 % Lymphocytes Abs 0.9 0.9 - 3.2 x10(3)/mcL Monocytes % 17.1 % Monocyte Abs 1.7 (H) 0.3 - 0.9 x10(3)/mcL Eosinophils % 0.8 % Eosinophils Abs 0.1 0.0 - 0.4 x10(3)/mcL Basophils % 1.4 % Basophils Abs 0.1 0.0 - 0.1 x10(3)/mcL Immature Gran % 1.60 % Zara Gran Abs 0.16 (H) 0.00 - 0.04 x10(3)/mcL Scan, Peripheral Blood Result Value Ref Range Plat Estimate Decreased RBC Morphology Normal RADIOLOGY - None ASSESSMENT & PLANS 1. 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 --Now s/p 7 LPs showing FELY (6 past clear). Plan is for no further IT chemo unless situation changes.--Has now reachieved marrow with <5% blasts and negative CSF --Day +60 bone marrow biopsy and chimerism: 3. S/P Colectomy --Herber's colostomy has been functioning well --No diarrhea 4. Renal --Creatinine 3.3 --1 liter IV fluids -- Encouraged increase in fluids --Dose reduced Fluconazole to 200 mg / day --Stopped Bactrim 5. FEN --Hypomag: Begin Mag plus protein 3 tabs TID --IV Mag 2 gms today 6. Deconditioning --Herber is trying to move around more at home --Continue to use walker for safety 7. Counseling Today we reviewed Herber's counts. His creatine is up most likely secondary to dehydration. Herber understands the need to increase his fluid intake and focus more on fluids than food at this time. We reviewed that Tacrolimus can cause his creatinine to rise and its important to take in fluids. Also discussed that his hand tremors are most likely r/t the Tacrolimus. 8. Summary of Plans 1 liter of normal saline 2 gms IV mag HOLD tonight's dose of Tacrolimus Decrease Tacrolimus to 0.5 mg BID starting tomorrow HOLD Bactrim Decrease Fluconazole to 200 mg / day Begin Mag 3 tabs TID Increase fluid intake Stay active at home Immunizations at 6 months Follow up on Thursday w/ labs, clinic visit, infusion time Hayley Palmer APRN Section of Hematology [facility] documented in this encounter Plan of Treatment Upcoming Encounters Date Type Specialty Care Team Description 02/18/2022 Infusion Hematology and Oncology 02/21/2022 Infusion Hematology and Oncology 02/24/2022 Appointment Hematology and Oncology 02/24/2022 Office Visit Hematology and Oncology Parviz Modi MD [facility] [address] HEMATOLOGY/[place] [address] Miroslava Pelayo APRN [facility] [address] HEMATOLOGY/[place] [address] 02/24/2022 Office Visit Wound Care 02/24/2022 Appointment Hematology and Oncology 02/26/2022 Office Visit Neurology Leni Bustamante MD [facility] DR NEUROLOGY DEPT. [place], [place] [address] (Wo rk) documented as of this encounter Visit Diagnoses Diagnosis S/P allogeneic bone marrow transplant Bone marrow replaced by transplant Acute myeloid leukemia in remission documented in this encounter Additional Health Concerns Infection Onset Date Last Indicated Resolved Time History of C. difficileComment: C. diffiicile 08/20/2021 testing positive 05/25/21. documented as of this encounter Care Teams Material Combiner Relationship Specialty Start Date End Date Beatriz Maurice PA PCP - General Family Medicine 05/06/21 [address] [place] [address] documented as of this encounter
--- OUTSIDE RECORDS SUMMARY | 2022-02-14 11:10 | XMS_ITS | Encounter Summary ---
:1960 [place] [address] Care Team Providers Name Role Phone Beatriz Maurice Primary Care Provider Reason for Visit Reason Comments Follow-up Attention to ileostomy. Encounter Details Date Type Department Care Team Description 11/25/2021 Office Visit Wound Care at [facility] Attention to ileostomy [facility] [place] [phone] Social History Tobacco Use Types Packs/Day [...] encounter Progress Notes Reyna Teague RN - 11/25/2021 3:00 PM EDT Images from the original note were not included. Clinic Ostomy Progress Note Surgery/Date: 05/28/21??Procedure(s) (LRB): @ILEOSTOMY OR JEJUNOSTOMY, NON TUBE (WRVU 17.59) (N/A) @EXPLORATORY LAPAROTOMY, REOPENING OF RECENT (WRVU 17.63) (N/A)?? Recently admitted from 10/15/21 - 11/18/21 for a MUD allo HSCT; Ostomy team followed him during this admission. Diagnosis: C. diff colitis. Surgeon: Dr. Colby Walter. Pouching System: Pt has continued with the Coloplast convex high output (HO) pouch #[id number] with adaptring & barrier strips as his stool continues to be thin liquid. Pt states that he has been changing the pouch twice a week and emptying twice/day. Used same pouching supplies today. Stoma Appearance: Overall, red & moist. Small area of resolving slough from ~9- 12:00 on the top of the stoma. Peristomal Skin: Healthy & intact. Ostomy Output: See above. Today's visit, teaching and recommendations: Pt seen in today. He states that overall he's feeling well, but still really does not have an appetite; he knows he needs to be eating & has discussed this with his team of providers. Provided Herber with 4 spare HO pouches. Herber denies questions or concerns at this time, but I enc him to call if any arise. F/u: 12/16. Stoma: documented in this encounter Plan of Treatment Upcoming Encounters Date Type Specialty Care Team Description 02/18/2022 Infusion Hematology and Oncology 02/21/2022 Infusion Hematology and Oncology 02/24/2022 Appointment Hematology and Oncology 02/24/2022 Office Visit Hematology and Oncology Parviz Modi MD [facility] DR HEMATOLOGY/[place] [address] Miroslava Pelayo APRN [facility] HEMATOLOGY/[place] [address] 02/24/2022 Office Visit Wound Care 02/24/2022 Appointment Hematology and Oncology 02/26/2022 Office Visit Neurology Leni Bustamante MD [facility] NEUROLOGY DEPT. [place], [place] [address] (Wo rk) documented as of this encounter Visit Diagnoses Diagnosis Attention to ileostomy documented in this encounter Additional Health Concerns Infection Onset Date Last Indicated Resolved Time History of C. difficileComment: C. diffiicile 08/20/2021 testing positive 05/25/21. documented as of this encounter Care Teams Network Cabler Relationship Specialty Start Date End Date Beatriz Maurice PA PCP - General Family Medicine 05/06/21 [address] [place] [address] documented as of this encounter
--- OUTSIDE RECORDS SUMMARY | 2022-02-14 11:10 | XMS_ITS | Encounter Summary ---
:1960 Author Organization [facility] [place] [address] Care Team Providers Name Role Phone Beatriz Maurice Primary Care Provider Encounter Details Date Type Department Care Team Description 11/25/2021 Hospital Encounter Hematology and S/P all ogeneic bone marrow transplant; [place] [facility] [place] [address] Social History Tobacco Use Types Packs/Day [...] of Sensura Flako Soft Convex One-piece Pouch #[id number] per month. Ostomy Supplies Misc Dispense 2 boxes 40 each 2 (20/box) of Brava Elastic Barrier strips #[id number] per month. Ostomy Supplies Misc Dispense 1 box 50 each 08/20/2021 (50/box) of a generic no-sting skin barrier wipe per month. Magnesium Oxide-Mg AA Take 3 tablets by 270 tablet 3 022 12/12/2021 Chelate (Mg-Plus) 133 mouth 3 times daily. mg Tablet loperamide (Imodium Take 1 capsule by 90 [...] Take 2 tablets by 60 tablet 0 202112/17/2021 200 mg Tablet mouth daily for 30 [...] mutation Colostomy Belt (Ostomy Dispense 1 Sensura Flako 1 each 11 0 08/20/2021 12/13/2021 Belt Medium) [facility] [place] [facility] Belt #[id number] per month. documented as of this encounter Progress Notes Jose L Jiang RN - 11/25/2021 10:26 AM EDT Patient Name: Herber Iverson Jr. Patient Age: 61 y.o. Birthdate: 1960 Admit date: 11/25/2021 Attending Physician: No att. providers found Access visit. See MAR and/or flowsheet. documented in this encounter Plan of Treatment Upcoming Encounters Date Type Specialty Care Team Description 02/18/2022 Infusion Hematology and Oncology 02/21/2022 Infusion Hematology and Oncology 02/24/2022 Appointment Hematology and Oncology 02/24/2022 Office Visit Hematology and Oncology Parviz Modi MD [facility] HEMATOLOGY/[place] [address] Miroslava Pelayo APRN [facility] DR HEMATOLOGY/[place] [address] 02/24/2022 Office Visit Wound Care 02/24/2022 Appointment Hematology and Oncology 02/26/2022 Office Visit Neurology Leni Bustamante MD [facility] NEUROLOGY DEPT. [place], [place] [address] (Wo rk) documented as of this encounter Procedures Procedure Name Priority Date/Time Associated Comments Diagnosis HEMOGRAM STAT 11/25/2021 10:36 S/P allogeneic bone Resu lts for this AM EDT marrow transplant procedure are in the results section. DIFFERENTIAL, STAT 11/25/2021 10:36 S/P allogeneic bone Res ults for this AUTOMATED AM EDT marrow transplant procedure are in the results section. HC FK-506 (TACROLIMUS) Routine 11/25/2021 10:36 S/P allogeneic bone Results for this AM EDT marrow transplant procedure are in the results section. HC CMV QUANT Routine 11/25/2021 10:36 S/P allogeneic bone Resu lts for this AM EDT marrow transplant procedure are in the results section. HC CBC,PLT & AUTO DIFF STAT 11/25/2021 10:36 S/P allogeneic bone AM EDT marrow transplant HC PHOSPHORUS, SERUM STAT 11/25/2021 10:36 S/P allogeneic b one Results for this AM EDT marrow transplant procedure are in the results section. HC MAGNESIUM, SERUM STAT 11/25/2021 10:36 S/P allogeneic smooth ne Results for this AM EDT marrow transplant procedure are in the results section. HC LACTIC STAT 11/25/2021 10:36 S/P allogeneic bone Resu lts for this DEHYDROGENASE AM EDT marrow transplan t procedure are in Acute myeloid the results leukemia in section. remission HC IGG, SERUM Routine 11/25/2021 10:36 S/P allogeneic bone Res ults for this AM EDT marrow transplant procedure are in the results section. COMPREHENSIVE STAT 11/25/2021 10:36 S/P allogeneic bone Res ults for this METABOLIC PANEL AM EDT marrow transplant procedu re are in (NON-FASTING) the results section. TYPE AND SCREEN Routine 11/25/2021 10:25 Results for this VALIDITY AM EDT procedure [...] in this encounter Results (ABNORMAL) Differential, Automated (11/25/2021 10:36 AM EDT) [facility] Method Time Signature Neutrophils % 73.7 % [facility] LABORATORY Neutr Abs (ANC) 7.08 (H) 1.70 - [facility] 6.10 [facility] x10(3)/[facility] L LABORATORY Lymphocytes % 6.5 % [facility] Lymphocytes Abs 0.6 (L) 0.9 - 3.2 [facility] x10(3)/[facility] LABORATORY Monocytes % 13.4 % [facility] Monocyte Abs 1.3 (H) 0.3 - 0.9 [facility] x10(3)/[facility] LABORATORY Eosinophils % 4.3 % [facility] Eosinophils Abs 0.4 0.0 - 0.4 [facility] x10(3)/[facility] LABORATORY Basophils % 1.1 % [facility] Basophils Abs 0.1 0.0 - 0.1 [facility] x10(3)/[facility] LABORATORY Immature Gran % 1.00 % [facility] Comment: Immature granulocytes(IG's)percentage an d absolute count will include metamyelocytes, myelocytes, and promyelo cytes. Blood smears from CBCs yielding IG's will be scanned manually for concor dance. If this scan disagrees with the automated IG or if promyelocytes are not ed, a manual differential will be performed. Zara Gran Abs 0.10 (H) 0.00 - 0.04 x10(3)/[facility] LABORATORY Specimen Anatomical Collection Method Collection Time Receive d Time (Source) Location / / Volume Laterality Blood 11/25/2021 10:36 11/25/2021 AM EDT 10:36 AM EDT Resulting Agency Comment Spec In Lab Parviz Modi MD HEMATOLOGY ORDERABLES Performing Organization Address City/State/[place] [address] (ABNORMAL) Hemogram (11/25/2021 10:36 AM EDT) [facility] gist Method Time Signature WBC 9.6 (H) 4.0 - 9.5 [facility] x10(3)/[facility] LABORATORY RBC 2.70 (L) 4.58 - [facility] 5.54 [facility] x10(6[facility] LABORATORY Hemoglobin 8.4 (L) 13.7 [facility] 16.5 g/dL [facility] LABORATORY Hematocrit 24.9 (L) 40.[address] [facility] 48.5 % [facility] LABORATORY MCV 92.2 82.9 - [facility] 93.1 [facility] LABORATORY MCH 31.1 27.5 [facility] 32.1 pg [facility] LAB[facility]ATORY MCHC 33.7 32.0 - [facility] 35.7 g/dL [facility] LABORATORY Platelets 48 (L) 145 - 357 [facility] x10(3)/[facility] LABORATORY RDWSD 48.4 (H) 36.0 - [facility]EL[facility] 45.0 [facility] LABORATORY RDWCV 16.7 (H) 11.4 - [facility] 13.8 % [facility] LABORATORY MPV 12.1 7.6 - 12.9 [facility] LABORATORY nRBC % Auto 0.4 % [facility] LABORATORY nRBC Abs Auto 0.040 (H) 0.000 - [facility] 0.000 [facility] x10(3)/[facility] LABORATORY Specimen Anatomical Collection Method Collection Time Receive d Time (Source) Location / / Volume Laterality Blood 11/25/2021 10:36 11/25/2021 AM EDT 10:36 AM EDT Resulting Agency Comment Spec In Lab Parviz Modi MD HEMATOLOGY ORDERABLES Performing Organization Address City/[facility]/[place] [address] (ABNORMAL) Lactate Dehydrogenase (11/25/2021 10:36 AM EDT) athologist Signature LDH 307 (H) 110 - 220 [facility] unit/L [facility] LABORATORY Specimen Anatomical Collection Method Collection Time Receive d Time (Source) Location / / Volume Laterality Blood 11/25/2021 10:36 11/25/2021 AM EDT 10:36 AM EDT Resulting Agency Comment Spec In Lab Hayley Palmer APRN CHEMISTRY ORDERABLES Performing Organization Address City/[facility] [place] [address] Tacrolimus level (11/25/2021 10:36 AM EDT) athologist Signature Tacrolimus Lvl 8.3 ng/mL [facility] LAB[facility] Comment: Trough therapeutic range is 3-15 ng/mL, depending upon transplant type, time since transplantation, use of other immu nosuppressive drugs, comorbidities, and test method used. Tacrolimus concentration determined usin g the [employer] Tacrolimus electrochemiluminescence competitive imm unoassay. Results from different samples types and methods are not interchangeable. Specimen Anatomical Collection Method Collection Time Receive d Time (Source) Location / / Volume Laterality Blood 11/25/2021 10:36 11/25/2021 AM EDT 10:36 AM EDT Resulting Agency Comment Spec In Lab Parviz Modi MD CHEMISTRY ORDERABLES Performing Organization Address City/[facility]/[place] [address] IgG (11/25/2021 10:36 AM EDT) athologist Signature IgG 1,303 700 - 1,600 [facility] mg/dL [facility] LABORATORY Comment: Pediatric Reference Intervals obtained f rom the Caliper Reference Interval project. http://www.sickkids.ca/caliperp roject/index.html Specimen Anatomical Collection Method Collection Time Receive d Time (Source) Location / / Volume Laterality Blood 11/25/2021 10:36 11/25/2021 AM EDT 10:36 AM EDT Resulting Agency Comment Spec In Lab Parviz Modi MD IMMUNOLOGY ORDERABLES Performing Organization Address City/[facility]/ZIP Code Phon e Number [place] [id number] [facility] LAB[address]ORY Drive CMV PCR, Quantitative (11/25/2021 10:36 AM EDT) Patholo gist Method Time Signature CMV Quant Not Detected Not Detected JIA (Numeric) IU/mL [facility] LABORATORY Comment: Indication for Study: Monitoring [...] (Source) Location / / Volume Laterality Blood 11/25/2021 10:36 11/26/2021 7:26 AM EDT AM EDT Resulting Agency Comment Spec In Lab Parviz Modi MD IMMUNOLOGY ORDERABLES Performing Organization Address City/[facility]/[place] [address] [facility] [address] Phosphorus (11/25/2021 10:36 AM EDT) P athologist Signature Phosphorus 4.2 2.5 - 4.5 [facility] mg/dL [facility] LABORATORY Specimen Anatomical Collection Method Collection Time Receive d Time (Source) Location / / Volume Laterality Blood 11/25/2021 10:36 11/25/2021 AM EDT 10:36 AM EDT Resulting Agency Comment Spec In Lab Parviz Modi MD CHEMISTRY ORDERABLES Performing Organization Address City/State/[place] [address] [facility] [address] (ABNORMAL) Magnesium (11/25/2021 10:36 AM EDT) athologist Signature Magnesium 0.65 (L) 0.69 - 1.07 [facility] mmol/L [facility] LABORATORY Specimen Anatomical Collection Method Collection Time Receive d Time (Source) Location / / Volume Laterality Blood 11/25/2021 10:36 11/25/2021 AM EDT 10:36 AM EDT Resulting Agency Comment Spec In Lab Parviz Modi MD CHEMISTRY ORDERABLES Performing Organization Address City/State/ZIP Code Phon e Number [address] (ABNORMAL) Comprehensive metabolic panel (non-fasting) (11/25/2021 10:36 AM EDT) athologist Signature Glucose Lvl 111 65 - 199 [facility] mg/dL [facility] LAB[facility]ORY Comment: Diabetes: >=200 mg/dL plus symp toms BUN 38 (H) 10 - 20 mg/dL [facility] LABORATORY Creatinine 3.28 (H) 0.80 - 1.50 mg/dL [facility] LABORATORY Sodium 133 (L) 135 - 145 mmol/L [facility] LABORATORY Potassium 5.2 (H) 3.5 - 5.0 mmol/L [facility] LABOR[facility]ORY Comment: Please note: ??Patients with WBC >100,00 0 may have falsely elevated Potassium levels. ??For accurate Potassium quantif ication in these patients send serum separator tube (gold top) for subsequent determinations. ??Contact the Clinical Chemistry Laboratory if there are any qu estions. Chloride 102 98 - 107 mmol/L [facility] LABOR[facility] CO2 18 (L) 22 - 31 mmol/L [facility] Anion Gap 13 5 - 15 mmol/L [facility]ORY Calcium 9.4 8.5 - 10.5 mg/dL [facility] LABORATORY Total Protein 7.1 6.1 - 8.0 g/dL [facility] LABOR[facility] Albumin 3.6 3.2 - 5.2 g/dL [facility] LABOR[facility] AST 17 0 - 39 unit/L [facility] ALT 14 0 - 55 unit/L [facility] Alk Phos 127 40 - 130 unit/L [facility] Total Bilirubin 0.5 0.2 - 1.3 mg/dL [facility] LABOR[facility]ORY Estimated GFR 19 (L) >=60 mL/min/1.73 m?? [facility] LAB[facility] Comment: This patient? s estimated glomerular filtration rate (eGFR) is between 19 mL/min/1.73 m2 (patients with less muscl e mass per kg body weight) and 22 mL/min/1.73 m2 (patients with more muscl e [...] (Source) Location / / Volume Laterality Blood 11/25/2021 10:36 11/25/2021 AM EDT 10:36 AM EDT Resulting Agency Comment Spec In Lab Parviz Modi MD CHEMISTRY ORDERABLES Performing Organization Address City/State/[place] [address] Type and Screen Validity (11/25/2021 10:25 AM EDT) [facility] gist Method Time Signature T&S only valid [facility] [place] [place] [facility] at [facility] LAB[facility]ATORY Comment: This Type and Screen result is only valid at the [facility] Specimen Anatomical Collection Method Collection Time Receive d Time (Source) Location / / Volume Laterality Blood Venous Draw / 11/25/2021 10:25 11/25/2021 Unknown AM EDT 10:38 AM EDT Resulting Agency Comment Spec In Lab Hayley C Spencer RV BODY MECHANIC BLOOD BANK ORDERABLES Performing Organization Address City/State/[place] [address] ABORH Recheck Status (11/25/2021 10:25 AM EDT) [facility] Method Time Signature ABORH Type Completed [facility] LABORATORY Specimen Anatomical Collection Method Collection Time Receive d Time (Source) Location / / Volume Laterality Blood Venous Draw / 11/25/2021 10:25 11/25/2021 Unknown AM EDT 10:38 AM EDT Resulting Agency Comment Spec In Lab Hayley Palmer RV BODY MECHANIC BLOOD BANK ORDERABLES Performing Organization Address City/State/ZIP Code Phon e Number [address] Antibody screen manual (11/25/2021 10:25 AM EDT) Analysis Performed At [facility] logist Time Signature AB Screen Negative [facility] LABORATORY Specimen Anatomical Collection Method Collection Time Receive d Time (Source) Location / / Volume Laterality Blood Venous Draw / 11/25/2021 10:25 11/25/2021 Unknown AM EDT 10:38 AM EDT Resulting Agency Comment Spec In Lab Hayley Palmer RV BODY MECHANIC BLOOD BANK ORDERABLES Performing Organization Address City/State/[place] [address] ABORh Type Manual (11/25/2021 10:25 AM EDT) [facility] Method Time Signature Expires at 11/28/2021 [facility] [address] on: [facility] LABORATORY ABORh Type O Pos [facility] LABOR[facility]ORY Specimen Anatomical Collection Method Collection Time Receive d Time (Source) Location / / Volume Laterality Blood Venous Draw / 11/25/2021 10:25 11/25/2021 Unknown AM EDT 10:38 AM EDT Resulting Agency Comment Spec In Lab Hayley Palmer RV BODY MECHANIC BLOOD BANK ORDERABLES Performing Organization Address City/State/[place] [address] documented in this encounter Visit Diagnoses Diagnosis 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 difficileComment: C. diffiicile 08/20/2021 testing positive 05/25/21. documented as of this encounter Care Teams Kitchen Chef Relationship Specialty Start Date End Date Beatriz Maurice PA PCP - General Family Medicine 05/06/21 [address] [place] [address] documented as of this encounter
--- OUTSIDE RECORDS SUMMARY | 2022-02-14 11:10 | XMS_ITS | Encounter Summary ---
:1960 Author Organization [facility] [place] [address] Care Team Providers Name Role Phone Beatriz Maurice Primary Care Provider Reason for Visit Auth/Cert Specialty Diagnoses / Procedures Referred By Contact Refer red To Contact Diagnoses infusion Procedures INFUSION Referral ID Status Reason Start Date Expiration Date Visits Requ ested Visits Authorized [id number] 1 1 Encounter Details Date Type Department Care Team Description 11/22/2021 Hospital Encounter 1 [facility] S/P allogeneic bone marrow transplant; [facility] [place] [phone] Social History Tobacco Use Types Packs/Day [...] boxes 20 each 2 (10/box) of Sensura [place] Soft Convex One-piece Pouch #[id number] per month. Ostomy Supplies Misc Dispense 2 boxes 40 each 2 (20/box) of Brava Elastic Barrier strips #[id number] per month. Ostomy Supplies Misc Dispense 1 [...] mutation Colostomy Belt (Ostomy Dispense 1 Sensura [place] 1 each 11 0 08/20/2021 12/13/2021 Belt Medium) [facility] [place] #4237 per month. documented as of this encounter Progress Notes Denise Madera RN - 11/22/2021 3:35 PM EDT 1W Outpatient Infusion DATE: 11/22/21 Arrival Time:1300 Departure Time: 1556 Diagnosis: AML Reason for visit: Hydration, Magnesium infusion SUBJECTIVE: Pt reports feeling very fatigued, otherwise no complaints OBJECTIVE: See Doc Flowsheets for remainder of physical assessment. HYDRATION: ( Solution, Rate, Start time, Stop time) NS 500 cc/hr x2 hours ANTIEMETICS/PREMEDS: none MEDICATION/TREATMENT: See MAR for start & stop times Magnesium 2 g IV REACTIONS: none ASSESSMENT: Pt tolerated infusion/treatment well. No questions at this time. PLAN: Return to clinic as scheduled documented in this encounter Plan of Treatment Upcoming Encounters Date Type Specialty Care Team Description 02/18/2022 Infusion Hematology and Oncology 02/21/2022 Infusion Hematology and Oncology 02/24/2022 Appointment Hematology and Oncology 02/24/2022 Office Visit Hematology and Oncology Parviz Modi MD [facility] DR HEMATOLOGY/[place] [address] Miroslava Pelayo APRN [facility] HEMATOLOGY/[place] [address] 02/24/2022 Office Visit Wound Care 02/24/2022 Appointment Hematology and Oncology 02/26/2022 Office Visit Neurology Leni Bustamante MD [facility] NEUROLOGY DEPT. 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 documented in this encounter Administered Medications Inactive Administered Medications - up to 3 most recent administrations Medication Order MAR Action Action Date Dose Rate Site heparin (pf) (porcine) (100 Given 11/22/2021 3:51 PM EDT 500 Uni ts units/mL) flush 5 mL syringe 500 Units 500 Units (5 mL), Intravenous, DAILY PRN, 1 dose, Starting on Thu11/22/21 at 1452, Until Thu11/22/21 at 1551, Line Care, Terminal Flush for de-accessing of Implantable Port, Routine magnesium sulfate 2 g in sterile water New Bag 11/22/2021 1:44 PM EDT 2 g 25 mL/hr 50 mL infusion 2 g, Intravenous, ONCE, 1 dose, On Thu11/22/21 at 1400, Administer over 120 Minutes sodium chloride 0.9% infusion New Bag 11/22/2021 1:41 PM EDT 500 mL/hr 500 mL/hr 500 mL/hr, Intravenous, ONCE, 1 dose, On Thu11/22/21 at 1400 documented in this encounter Additional Health Concerns Infection Onset Date Last Indicated Resolved Time History of C. difficileComment: C. diffiicile 08/20/2021 testing positive 05/25/21. documented as of this encounter Care Teams Iron Caster Relationship Specialty Start Date End Date Beatriz Maurice PA PCP - General Family Medicine 05/06/21 [address] [place] [address] documented as of this encounter
--- OUTSIDE RECORDS SUMMARY | 2022-02-14 11:10 | XMS_ITS | Encounter Summary ---
:1960 Author Organization [facility] [place] [address] Care Team Providers Name Role Phone Beatriz Maurice Primary Care Provider Encounter Details Date Type Department Care Team Description 11/22/2021 Notes Only Hematology and Oncology [place] [address] Social History Tobacco Use Types Packs/Day [...] encounter Progress Notes Nichelle Barnard MSW - 11/22/2021 4:53 PM EDT [facility]-RISK MANAGEMENT PROFESSIONAL met with Morales to help with questions regarding finances and Herber's health insurance. Disability: Morales reported that Herber's S/T disability ended 7-10 days ago, he has no L/T disability through work, and no income now. Insurance: Morales reported that his benefits (health insurance) end in three weeks (12/14/21). That said, he may have it extended. RISK MANAGEMENT PROFESSIONAL told her that if he doesn't get a third FMLA and is in danger of losing his health insurance, she should call this securities underwriter who will then e-mail Frank to help him apply for [place] Medicaid. FMLA: Morales spoke with Jeanne at [employer]. She was told that Herber has had FMLA twice already: approval # [id number] and # [id number]. Jeanne's phone # is , extension [phone]. RISK MANAGEMENT PROFESSIONAL asked Morales to provide this securities underwriter with an update when she learns whether or not Herber is approved for a third round of FMLA, which would continue his private pay health insurance. [facility] Co-Pay Assistance Citlali: RISK MANAGEMENT PROFESSIONAL reminded Morales that we got Herber the [facility] Co-Pay Assistance citlali on 09/27/21 $10,000 for AML. If he keeps his private health insurance this will pay $10,000 in co-pays, most importantly his insurance premiums. RISK MANAGEMENT PROFESSIONAL showed her the [facility] website and video on covered benefits,and the phone # to call them and ask for a second packet to be mailed to their home. RISK MANAGEMENT PROFESSIONAL emphasized that they must submit a reimbursement claim at least every 90 days (first one by 12/24/21) or he will lose the citlali. SSDI: RISK MANAGEMENT PROFESSIONAL had visited Herber inpatient one week ago and gave him duplicate copies of the handouts she gave him 5 months ago: Triage Cancer's Quick Guide to SSDI & SSI, this securities underwriter's typed notes aboutSSDI, an FMLA Fact Sheet, and this securities underwriter's business card if they need help applying for SSDI. RISK MANAGEMENT PROFESSIONAL told Herber that if found eligible for SSDI, he would still not receive a first check until 5 months after date of application. He has been receiving $2,313/month in S/T disability benefits but that ended a week ago. The new amount (2021) that an individual can earn without losing their SSDI is $2,260/month. RISK MANAGEMENT PROFESSIONAL told Morales all this. She said she remembers seeing the folder at home. Food Security: [facility] delivered tailored order of 2 bags of fresh produce, dairy, and shelf-stable food from [facility] [employer] to Mickey's car today. Plan: Morales and Herber have RISK MANAGEMENT PROFESSIONAL's business card and know she remains available to help him with the issues cited in this note. SW Intervention: Food insecurity resources Financial resources Patient Financial Assistance/Insurance Other: FMLA and SSDI It has been determined that the patient has food insecurity and/or dietary needs. The following action has been taken: Prescribed visit(s) to onsite Food is Medicine Service documented in this encounter Plan of Treatment Upcoming Encounters Date Type Specialty Care Team Description 02/18/2022 Infusion Hematology and Oncology 02/21/2022 Infusion Hematology and Oncology 02/24/2022 Appointment Hematology and Oncology 02/24/2022 Office Visit Hematology and Oncology Parviz Modi MD [facility] DR HEMATOLOGY/[place] [address] Miroslava Pelayo APRN [facility] DR HEMATOLOGY/[place] [address] 02/24/2022 Office Visit Wound Care 02/24/2022 Appointment Hematology and Oncology 02/26/2022 Office Visit Neurology Leni Bustamante MD [facility] DR NEUROLOGY DEPT. [place], [place] [address] (Wo rk) documented as of this encounter Visit Diagnoses Not on filedocumented in this encounter Additional Health Concerns Infection Onset Date Last Indicated Resolved Time History of C. difficileComment: C. diffiicile 08/20/2021 testing positive 05/25/21. documented as of this encounter Care Teams Trauma Coordinator Relationship Specialty Start Date End Date Beatriz Maurice PA PCP - General Family Medicine 05/06/21 [address] [place] [address] documented as of this encounter
--- OUTSIDE RECORDS SUMMARY | 2022-02-14 11:10 | XMS_ITS | Encounter Summary ---
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 Herber was discharged today. His tacrolimus level was 13.8 this morning. At the request of Dr. Modi, I called Herber and spoke to his SO Morales to review a decrease in dosing. Herber currently takes 1.5mg oral tacrolimus in the morning and 1mg oral tacrolimus in the evening. Morales and Herber have been instructed to decrease to Tacrolimus 0.5mg in the morning and 1mg in the evening. A: Morales read back instructions and verbalized understanding of the plan. P: Continue to provide supportive care RTC 11/22 documented in this encounter Plan of Treatment Upcoming Encounters Date Type Specialty Care Team Description 02/18/2022 Infusion Hematology and Oncology 02/21/2022 Infusion Hematology and Oncology 02/24/2022 Appointment Hematology and Oncology 02/24/2022 Office Visit Hematology and Oncology Parviz Modi MD [facility] DR HEMATOLOGY/[place] [address] Miroslava Pelayo APRN [facility] DR HEMATOLOGY/[place] [address] 02/24/2022 Office Visit Wound Care 02/24/2022 Appointment Hematology and Oncology 02/26/2022 Office Visit Neurology Leni Bustamante MD [facility] DR NEUROLOGY DEPT. [place], [place] [address] (Wo rk) documented as of this encounter Visit Diagnoses Not on filedocumented in this encounter Additional Health Concerns Infection Onset Date Last Indicated Resolved Time History of C. difficileComment: C. diffiicile 08/20/2021 testing positive 05/25/21. documented as of this encounter Care Teams Degreasing Wheel Operator Relationship Specialty Start Date End Date Beatriz Maurice PA PCP - General Family Medicine 05/06/21 [address] [place] [address] documented as of this encounter
--- OUTSIDE RECORDS SUMMARY | 2022-02-14 11:10 | XMS_ITS | Encounter Summary ---
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 [address] Referral ID Status Reason Start Date Expiration Date Visits V isits Requested Authorized [id number] Authorized 11/22/2021 11/22/2022 99 99 Encounter Details Date Type Department Care Team Description 12/02/2021 Hospital Encounter Hematology and Hypomag nesemia; Oncology at [facility] [place]/P allogeneic bone marrow t ransplant; [facility] Acute [place] [address] Social History Tobacco Use Types Packs/Day [...] of Sensura Flako Soft Convex One-piece Pouch #[id number] per month. Ostomy Supplies Misc Dispense 2 boxes 40 each 11 2 (20/box) of Brava Elastic Barrier strips #[id number] per month. Ostomy Supplies Misc Dispense 1 box 50 each 08/20/2021 (50/box) of a generic no-sting skin barrier wipe per month. tacrolimus (Prograf) Take 1 capsule by 60 capsule 3 12/03/19 22 01/14/2022 0.5 mg mouth 2 times daily. CapsuleIndications: Acute myeloid leukemia in remission nystatin (Mycostatin) Take 5 mLs by mouth 4 140 mL 1 06/202212/09/2021 100,000 unit/mL times daily for 7 Suspension days. Magnesium Oxide-Mg AA Take 3 tablets by [...] 30 Acute myeloid leukemia days. in remission rosuvastatin (Crestor) Take 1 tablet [...] mutation Colostomy Belt (Ostomy Dispense 1 Sensura Masury 1 each 11 0 08/20/2021 12/13/2021 Belt Medium) [facility] Belt #[id number] per month. documented as of this encounter Progress Notes Michelle Mahan RN - 12/02/2021 11:47 AM EDT Patient Name: Herber Iverson Jr. Patient Age: 61 y.o. Birthdate: 1960 Admit date: 12/02/2021 Attending Physician: Fay att. providers found Herber Iverson Jr., 61 y.o. male with diagnosis of AML s/p Allo BMT is here for hydration support. S: Pt. offers no complaints at this time, reports continues to struggle with oral intake at home. Reviewed plan of care for infusion visit, patient verbalized understanding of plan as outlined. Annika Geller, BMT health care coach at bedside during visit to review transplant binder and log with patient to assist with intake/symptom monitoring at home. O: Chemotherapy orders independently verified for correct drug name, route and dosage per patient's height, weight and BSA by Michelle Mahan, RN, RN and onsite pharmacist. Chemotherapy administered per protocol. REACTIONS (DESCRIPTION, TIME, INTERVENTION AND EFFECTIVENESS) none A: Pt. Tolerated treatment with out issue. Herber Iverson Jr. confirms that all questions and issues have been addressed. P: Return to clinic as scheduled. property staff accountant team to follow up with patient via phone call tomorrow with scheduled hydration/lab appointment for 12/04 at [facility] location. documented in this encounter Plan of Treatment Upcoming Encounters Date Type Specialty Care Team Description 02/18/2022 Infusion Hematology and Oncology 02/21/2022 Infusion Hematology and Oncology 02/24/2022 Appointment Hematology and Oncology 02/24/2022 Office Visit Hematology and Oncology Parviz Modi MD [facility] HEMATOLOGY/[place] [address] Miroslava Pelayo APRN [facility] HEMATOLOGY/[place] [address] 02/24/2022 Office Visit Wound Care 02/24/2022 Appointment Hematology and Oncology 02/26/2022 Office Visit Neurology Leni Bustamante MD [facility] NEUROLOGY DEPT. 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 documented in this encounter Administered Medications Inactive Administered Medications - up to 3 most recent administrations Medication Order MAR Action Action Date Dose Rate Site heparin (pf) (porcine) (100 Given 12/02/2021 12:42 PM EDT 500 Un its units/mL) flush 5 mL syringe 500 Units 500 Units, Intravenous, ONCE PRN, Starting on Thu12/02/21 at 0929, Until Thu12/03/21 at 0433, Line Care, Routine sodium chloride 0.9% infusion New Bag 12/02/2021 11:40 AM EDT 999 mL/hr 999 mL/hr 999 mL/hr, Intravenous, DAILY PRN, Starting on Thu12/02/21 at 1056, Until Thu12/03/21 at 0433, One liter over 1 hour documented in this encounter Additional Health Concerns Infection Onset Date Last Indicated Resolved Time History of C. difficileComment: C. diffiicile 08/20/2021 testing positive 05/25/21. documented as of this encounter Care Teams Spice Fumigator Relationship Specialty Start Date End Date Beatriz Maurice PA PCP - General Family Medicine 05/06/21 [address] [place] [address] documented as of this encounter
--- OUTSIDE RECORDS SUMMARY | 2022-02-14 11:10 | XMS_ITS | Encounter Summary ---
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 [address] Referral ID Status Reason Start Date Expiration Date Visits V isits Requested Authorized [id number] Authorized 11/22/2021 11/22/2022 99 99 Encounter Details Date Type Department Care Team Description 11/29/2021 Infusion Hematology Oncology at [facility]; [facility] S/P allogeneic bone marrow t ransplant; [address] [place] [address] Drive Acute myeloid leukemia in [place]; [place], [place] [address] STACIE (acute kidney injury); [phone] Dehydration Social History Tobacco Use Types Packs/Day [...] Sign Reading Time Taken Comments Blood Pressure 102/66 11/29/2021 9:00 AM EDT Pulse 97 11/29/2021 9:00 AM EDT Temperature 36.3 ??C (97.3 ??F) 11/29/2021 9:00 AM EDT Respiratory Rate 16 11/29/2021 9:00 AM EDT Oxygen Saturation 100% 11/29/2021 9:00 AM EDT Inhaled Oxygen Concentration - - Weight 98.7 kg (217 lb 9.6 oz) 11/29/2021 9:00 AM EDT Height 178 cm (5' 10.08) 11/29/2021 9:00 AM EDT Body Mass Index 31.15 11/29/2021 9:00 AM EDT documented in this encounter Progress Notes Meg Serrano RN - 11/29/2021 9:00 AM EDT INFUSION THERAPY ADMINISTRATION NOTES ?? DIAGNOSIS: AML s/p MUD allogenic BMT REASON FOR VISIT: Hydration & IV Magnesium SUBJECTIVE ?? Mr. Iverson is here for hydration and magnesium. Labs drawn via port and sent to [facility] for processing. He continues to feel very weak, tired and shaky. ?? OBJECTIVE ?? LAB DATA: Drawn today at [facility] - wbc 7.68, hgb 7.6, hct 22.5, plts 50k, anc 4.70 Sodium 135, Potassium 4.8, BUN 34, Creatinine 3.1, Magnesium 2.0 Hayley Palmer APRN notified of labs ?? Pre administration: Orders independently verified for drug name, route, and dosage by Marty Serrano RN and pharmacist on-site. ?? REACTIONS (DESCRIPTION, TIME, INTERVENTION AND EFFECTIVENESS) none ASSESSMENT ?? Mr. Iverson was awake, alert and tolerated treatment well. ?? PLAN ?? Mr. Iverson has appt scheduled for Thursday, 12/02 at [facility]. Will have repeat labs and plan for transfusion. Reminded patient to call [facility] on-call over the weekend with any questions/concerns. He verbalized uinderstanding and agreement. documented in this encounter Plan of Treatment Upcoming Encounters Date Type Specialty Care Team Description 02/18/2022 Infusion Hematology and Oncology 02/21/2022 Infusion Hematology and Oncology 02/24/2022 Appointment Hematology and Oncology 02/24/2022 Office Visit Hematology and Oncology Parviz Modi MD [facility] DR HEMATOLOGY/[place] [address] Miroslava Pelayo APRN [facility] DR HEMATOLOGY/[place] [address] 02/24/2022 Office Visit Wound Care 02/24/2022 Appointment Hematology and Oncology 02/26/2022 Office Visit Neurology Leni Bustamante MD [facility] ER DR NEUROLOGY DEPT. [place], [place] [address] (Wo rk) documented as of [...] sulfate 2 g in sterile New Bag 11/29/2021 9:22 AM EDT 2 g 25 mL/hr water 50 mL infusion 2 g, Intravenous, DAILY PRN, Starting on Thu11/29/21 at 0751, Until Thu11/29/21 at 1338, Administer over 120 Minutes, hypomag post-stem cell transplant, Please give 2 gms for Magnesium less than 0.60 sodium chloride 0.9% infusion New Bag 11/29/2021 9:20 AM EDT 999 mL/hr 999 mL/hr 999 mL/hr, Intravenous, DAILY PRN, Starting on Thu11/29/21 at 0751, Until Thu11/29/21 at 1338, One liter over 1 hour documented in this encounter Additional Health Concerns Infection Onset Date Last Indicated Resolved Time History of C. difficileComment: C. diffiicile 08/20/2021 testing positive 05/25/21. documented as of this encounter Care Teams Police Lieutenant Precinct Relationship Specialty Start Date End Date Beatriz Maurice PA PCP - General Family Medicine 05/06/21 [address] [place] [address] documented as of this encounter
--- OUTSIDE RECORDS SUMMARY | 2022-02-14 11:10 | XMS_ITS | Encounter Summary ---
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 At the request of Hayley Palmer APRN, I called Herber today to discuss medication dosing changes. ?? Herber was at our clinic in [facility] receiving IV hydration when I called him. He reports feeling overwhelmingly fatigued with decreased appetite, difficulty staying hydrated, and intermittently feeling nauseous with occasional dry heaving. ?? We had a long discussion on the importance of early symptom reporting, drinking 64oz fluid/day, keeping his nausea under control, and moving his body. ?? This RN will provide a BMT Binder to record symptoms, I/O's, VS, etc on Thursday when he is here for a follow up appointment with Dr. Modi's Team. I will review the binder with both Herber and his SO Morales. ?? We agreed to have a formal telephone check in on Wednesdays moving forward until Herber is stable -this RN will call Herber. ?? Herber has been instructed to decrease his daily XR metoprolol dose to 25mg daily by mouth. ?? Herber does not have any antiemetics at home. A request was sent to Hayley Palmer APRN to write new orders for metoprolol and an antiemetic ie ondansetron. Scripts to be sent to [facility] in [place], [place]. A: Herber verbalized his appreciation of this call, and verbalized understanding of the plan. P: Decrease Metoprolol to 25mg XR po daily Send script for an antiemetic for patient to take as ordered Pt will report any new symptoms to this RN or will call the main number and ask for the Hem/Onc fellow information systems architect during off hours. RTC 12/02/21 and meet with this RN during 3K infusion Continue to provide supportive care as needed Addendum: After speaking to Hayley Palmer APRN this afternoon, I learned that Herber did not have labs drawn today in [facility]. I called Herber and Morales. Herber reports that he went to [facility] lab this morning and they did not have an appointment for him. I expressed the importance of having labs drawn each time he has [facility] appointment for infusion. They both verbalized understanding. Plan is for labs/hydration/mag (if needed) tomorrow. Hayley is putting in orders and confirming. documented in this encounter Plan of Treatment Upcoming Encounters Date Type Specialty Care Team Description 02/18/2022 Infusion Hematology and Oncology 02/21/2022 Infusion Hematology and Oncology 02/24/2022 Appointment Hematology and Oncology 02/24/2022 Office Visit Hematology and Oncology Parviz Modi MD [facility] DR HEMATOLOGY/[place] [address] [facility] HEMATOLOGY/[place] [address] 02/24/2022 Office Visit Wound Care 02/24/2022 Appointment Hematology and Oncology 02/26/2022 Office Visit Neurology Leni Bustamante MD [facility] NEUROLOGY DEPT. [place], [place] [address] (Wo rk) documented as of this encounter Visit Diagnoses Not on filedocumented in this encounter Additional Health Concerns Infection Onset Date Last Indicated Resolved Time History of C. difficileComment: C. diffiicile 08/20/2021 testing positive 05/25/21. documented as of this encounter Care Teams Curb Hop Relationship Specialty Start Date End Date Beatriz Maurice PA PCP - General Family Medicine 05/06/21 [address] [place] [address] documented as of this encounter
--- OUTSIDE RECORDS SUMMARY | 2022-02-14 11:10 | XMS_ITS | Encounter Summary ---
:1960 Author Organization [facility] Address [facility] [place] [address] Care Team Providers Name Role Phone Beatriz Maurice Primary Care Provider Encounter Details Date Type Department Care Team Description 11/28/2021 [facility]z [place] [address] DEPT. [phone] [place], [place] [address] (Wo rk) Social History Tobacco [...] MD [facility] DR HEMATOLOGY/[place] [address] Miroslava Pelayo APRN [facility] HEMATOLOGY/[place] [address] 02/24/2022 Office Visit Wound Care 02/24/2022 Appointment Hematology and Oncology 02/26/2022 Office Visit Neurology Leni Bustamante MD [facility] NEUROLOGY DEPT. [place], [place] [address] (Wo rk) documented as of this encounter Visit Diagnoses Not on filedocumented in this encounter Additional Health Concerns Infection Onset Date Last Indicated Resolved Time History of C. difficileComment: C. diffiicile 08/20/2021 testing positive 05/25/21. documented as of this encounter Care Teams Head Waiter/Waitress Relationship Specialty Start Date End Date Beatriz Maurice PA PCP - General Family Medicine 05/06/21 [address] [place] [address] documented as of this encounter
--- OUTSIDE RECORDS SUMMARY | 2022-02-14 11:10 | XMS_ITS | Encounter Summary ---
:1960 Author Organization [facility] Address [facility] [place] [address] Care Team Providers Name Role Phone Beatriz Maurice Primary Care Provider Reason for Visit Reason Comments Follow-up Encounter Details Date Type Department Care Team Description 12/02/2021 Office Visit Hematology and Radha Osullivan MD [facility] DR HEMATOLOGY/[place] [address] S/P allogeneic bone marrow transplant (P rimary Dx); [place] [facility] Miroslava Pelayo [facility] [address] HEMATOLOGY/[place] [address] Hypomagnesemia; [facility] Hayley Palmer FISH P[employer]ER [facility] HEMATOLOGY-[place] [address] STACIE (acute kidney injury); Drive H/O Clostridium difficile in fection; [place], [place] Colostomy [place] [address] [place]; [id number] Acute leukemia in remission; [phone] Anemia in neopl astic disease; Weakness acquir ed in ICU; Dehydration; Acute myeloid l eukemia in remission Social History Tobacco Use Types Packs/Day Years [...] Sign Reading Time Taken Comments Blood Pressure 100/69 12/02/2021 9:54 AM EDT Pulse 83 12/02/2021 9:54 AM EDT Temperature 36.2 ??C (97.2 ??F) 12/02/2021 9:54 AM EDT Respiratory Rate 17 12/02/2021 9:54 AM EDT Oxygen Saturation 99% 12/02/2021 9:54 AM EDT Inhaled Oxygen Concentration - - Weight - - Height - - Body Mass Index - - documented in this encounter Progress Notes Dilshad Osullivan MD - 12/02/2021 10:15 AM EDT HEMATOLOGY/BMT CONSULTATION VISIT NOTE CHIEF COMPLAINT: Herber Iverson Jr. is a 61 y.o. male originally referred by Dr. Dilshad Osullivan for evaluation of leukemia. He is seen in follow-up today. Data Review (From Recent Hospital discharge summary and the EMR) Admitted to [facility] 04/29/21 for leukocytosus. Discharged 04/30/21 [...] [place] [address]/10,000 ABL1 copies (135.80%.) 08/08/21 Discharged after reinduction with gilteritinib and venetoclax and initial clearance of [employer] leukemia. 08/12/21 LP - FELY 08/26/21 LP - FELY 09/05/20 LP - FELY 09/09/20 LP - FELY 09/12/20 BM Bx - Normocellular marrow (~50%) showing no increase in blasts, left-shifted erythroid hyperplasia and dysplasia, a relative granulocyte hypoplasia, and atypical megakaryocytes. NPM1 gene Mutation analysis - pending 10/15/21 Transplant summary Admit: 10/15/2021 Discharge: 11/18/2021 MUD transplant Conditioning: Fludarabine, Busulfan, Rabbit ATG, MTX post stem cell infusion Day 0 = 10/22/2021 Donor ABO: O neg Recipient ABO: O pos CMV: Both Negative Donor sex: Male Complications: Ischemic stroke, BC + VRE, severe mucositis, STACIE Date NPM1 HSCT Day Source Total PMN [place] 05/21/21 43% 08/06/21 135% 09/12/21 1.95% 11/22/21 +31 PB >95% na na ORIGINAL HISTORY OF PRESENT ILLNESS Herber Benjamín Iverson Jr. dates the onset of his illness to earlier this summer. He has felt more tired than usual but attributed it to the humidity. About 3 weeks ago his fatigue was so bad that he went to a clinic in [facility]. He was evaluated for a UTI that was negative. 1 week ago today he saw his PCPwho ended up gatting a CBC showing abnormal counts and he was admitted to [facility]. Other than fatigue has had no fevers, chills or drenching sweats. Has lost a few lbs - <10. Appetite has been down recently. No bleeding or bruising. Was very actived when younger - played a lot of sports into his 40's. 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 He is accompanied today by his partner Morales. Herber continues to be severely debilitated post HSCT. He spend most of the day resting but does get out of bed and is able to move about the house. Fluid intake hs improved but some days still below target of 50-60 oz. Appetite still very poor and food still tastes abnormal. Previous nausea and vomiting have improved over the last week. Does feel stronger after fluid boluses. No F/C/S or sxs of GVHD - no rashes, nausea improved. Stooloutput a little more solid. 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 Social - has a girlfriend and his [...] DAILY ??? Colostomy Belt (Ostomy Belt Medium) [facility] Dispense 1 Sensura [place] Belt #1305 per month. ??? flecainide (TAMBOCOR) 50 mg, Oral, 2 TIMES DAILY ??? fluconazole (DIFLUCAN) 400 mg, Oral, DAILY ??? gabapentin (NEURONTIN) 200 mg, Oral, 3 TIMES DAILY ??? gilteritinib (XOSPATA) 120 mg, Oral, DAILY, Call clinic before starting medication. ??? lidocaine-prilocaine (EMLA) Cream [facility] approximately 30 minutes prior to access. ??? [...] of Sensura Flako Soft Convex One-piece Pouch #[id number] month. ??? Ostomy Supplies Misc Dispense 2 boxes (20/box) of Brava Elastic Barrier strips #[id number] per month. ??? Ostomy Supplies Misc Dispense [...] itchy. PHYSICAL EXAM VITAL SIGNS: Blood pressure 100/69, pulse 83, temperature 36.2 ??C (97.2 ??F), temperature source Temporal, resp. rate 17, SpO2 99 %. GENERAL: Herber Iverson Jr. is a [...] hour(s)) IgG Result Value Ref Range IgG 1,215 700 - 1,600 mg/dL Comprehensive metabolic panel (non-fasting) Result Value Ref Range Glucose Lvl 122 65 - 199 mg/dL BUN 23 (H) 10 - 20 mg/dL Creatinine 2.49 (H) 0.80 - 1.50 mg/dL Sodium 130 (L) 135 - 145 mmol/L Potassium 4.7 3.5 - 5.0 mmol/L Chloride 100 98 - 107 mmol/L CO2 19 (L) 22 - 31 mmol/L Anion Gap 11 5 - 15 mmol/L Calcium 9.4 8.5 - 10.5 mg/dL Total Protein 6.9 6.1 - 8.0 g/dL Albumin 3.6 3.2 - 5.2 g/dL AST 33 0 - 39 unit/L ALT 29 0 - 55 unit/L Alk Phos 414 (H) 40 - 130 unit/L Total Bilirubin 0.6 0.2 - 1.3 mg/dL Estimated GFR 27 (L) >=60 mL/min/1.73 m?? Magnesium Result Value Ref Range Magnesium 0.78 0.69 - 1.07 mmol/L Tacrolimus level Result Value Ref Range Tacrolimus Lvl 7.9 ng/mL Hemogram Result Value Ref Range WBC 8.6 4.0 - 9.5 x10(3)/mcL RBC 2.53 (L) 4.58 - 5.54 x10(6)/mcL Hemoglobin 8.1 (L) 13.7 - 16.5 g/dL Hematocrit 24.2 (L) 40.5 - 48.5 % MCV 95.7 (H) 82.9 - 93.1 fL MCH 32.0 27.5 - 32.1 pg MCHC 33.5 32.0 - 35.7 g/dL Platelets 51 (L) 145 - 357 x10(3)/mcL RDWSD 69.6 (H) 36.0 - 45.0 fL RDWCV 20.4 (H) 11.4 - 13.8 % MPV 11.4 7.6 - 12.9 fL nRBC % Auto 0.3 % nRBC Abs Auto 0.030 (H) 0.000 - 0.000 x10(3)/mcL Differential, Automated Result Value Ref Range Neutrophils % 70.6 % Neutr Abs (ANC) 6.11 (H) 1.70 - 6.10 x10(3)/mcL Lymphocytes % 8.2 % Lymphocytes Abs 0.7 (L) 0.9 - 3.2 x10(3)/mcL Monocytes % 10.1 % Monocyte Abs 0.9 0.3 - 0.9 x10(3)/mcL Eosinophils % 9.1 % Eosinophils Abs 0.8 (H) 0.0 - 0.4 x10(3)/mcL Basophils % 0.8 % Basophils Abs 0.1 0.0 - 0.1 x10(3)/mcL Immature Gran % 1.20 % Zara Gran Abs 0.10 (H) 0.00 - 0.04 x10(3)/mcL RADIOLOGY - [...] marrow biopsy and chimerism and NPM1 MRD assesments. 3. S/P Colectomy --Herber's colostomy has been functioning well --stool firmness improved over last week but still mostly watery. 4. Renal --Creatinine remains elevated but improved with BIW IV hydration --Mag wnl on current oral dosing -- Fluconazole dose-reduced to 200 mg / day -- Continue to hold Bactrim Renal Impairment Dosing ACV: [...] Counseling Reviewed with Herber and Morales that progress typically feels (and is) slow at this time but that Herber is within what is expected for this stage of the post- transplant process. 7. Summary of Plans 1 liter of normal saline today Continue Tacrolimus at 0.5 mg BID HOLD Bactrim due to STACIE - will need pentamidine Continue Fluconazole at 200 mg / day Continue Mag 3 tabs TID Increase fluid intake at home Stay active at home Day ~+60 BM Bx - aim for 12/23/21 - orders are in including NPM1 MRD testing. --Lab appt for prior to fluids at [facility] --Will ask Nichelle to call re support for Morales being out of work. Immunizations at 6 months Follow up at [facility] w/ labs, IV fluids, Mag on Follow up on Thursday w/ labs, clinic visit, infusion time DILSHAD OSULLIVAN MD Section of Hematology [facility] documented in this encounter Plan of Treatment Upcoming Encounters Date Type Specialty Care Team Description 02/18/2022 Infusion Hematology and Oncology 02/21/2022 Infusion Hematology and Oncology 02/24/2022 Appointment Hematology and Oncology 02/24/2022 Office Visit Hematology and Oncology Dilshad Osullivan MD [facility] [address] HEMATOLOGY/[place] [address] Miroslava Pelayo APRN [facility] [address] HEMATOLOGY/[place] [address] 02/24/2022 Office Visit Wound Care 02/24/2022 Appointment Hematology and Oncology 02/26/2022 Office Visit Neurology Leni Bustamante MD [facility] NEUROLOGY DEPT. [place], [place] [address] (Wo rk) Scheduled Orders Name Type Priority Associated Diagnoses Order S chedule CBC (with Diff) Lab STAT Hypomagnesemia Twice a Week for 30 STACIE (acute kidney Occurrence s starting injury) 12/02/2021 until H/O Clostridium 12/02/2022, 10 difficile infect ion completed Colostomy in lalo ce 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 Weakness acquired in ICU S/P allogeneic bone marrow transplan t Dehydration Comprehensive metabolic Lab Routine Hypomagn esemia Twice a Week for 30 panel (non-fasting) STACIE (acute kidney Occ urrences starting injury) 12/02/2021 until H/O Clostridium 12/02/2022, 10 difficile infect ion completed Colostomy in lalo ce 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 Weakness acquired in ICU S/P allogeneic bone marrow transplan t Dehydration Magnesium Lab Routine Hypomagnesemia Twice a Week for 30 STACIE (acute kidney Occurrence s starting injury) 12/02/2021 until H/O Clostridium 12/02/2022, 10 difficile infect ion completed Colostomy in lalo ce 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 Weakness acquired in ICU S/P allogeneic bone marrow transplan t Dehydration documented as of this encounter Results (ABNORMAL) Magnesium (02/10/2022 8:45 AM EDT) athologist Signature Magnesium 0.67 (L) 0.69 - 1.07 [facility] mmol/L [facility] LABORATORY Specimen Anatomical Collection Method Collection Time Receive d Time (Source) Location / / Volume Laterality Blood 02/10/2022 8:45 AM 9:03 EDT AM EDT Resulting Agency Comment Spec In Lab Dilshad Osullivan MD CHEMISTRY ORDERABLES Performing Organization Address City/State/[place] [address] (ABNORMAL) Comprehensive metabolic panel (non-fasting) (02/10/2022 8:45 AM EDT) athologist Signature Glucose Lvl 93 65 - 199 [facility] mg/dL [facility] LABOR[facility]ORY Comment: Diabetes: >=200 mg/dL plus symp toms BUN 39 (H) 10 - 20 mg/dL [facility] Creatinine 2.07 (H) 0.80 - 1.50 mg/dL [facility] Sodium 134 (L) 135 - 145 mmol/L [facility] Potassium 5.4 (H) 3.5 - 5.0 mmol/L [facility] Comment: Please note: ??Patients with WBC >100,00 0 may have falsely elevated Potassium levels. ??For accurate Potassium quantif ication in these patients send serum separator tube (gold top) for subsequent determinations. ??Contact the Clinical Chemistry Laboratory if there are any qu estions. Chloride 99 98 - 107 mmol/L [facility] CO2 20 (L) 22 - 31 mmol/L [facility] Anion Gap 15 5 - 15 mmol/L [facility] Calcium 9.0 8.5 - 10.5 mg/dL [facility] Total Protein 5.4 (L) 6.1 - 8.0 g/dL [facility] Albumin 3.6 3.2 - 5.2 g/dL [facility] AST 15 0 - 39 unit/L [facility] ALT 19 0 - 55 unit/L [facility] Alk Phos 70 40 - 130 unit/L [facility] Total Bilirubin 0.4 0.2 - 1.3 mg/dL [facility] Estimated GFR 36 (L) >=60 mL/min/1.73 m?? [facility] Comment: This patient's estimated GFR [...] ORDERABLES Performing Organization Address City/[facility]/[place] [address] Magnesium (02/03/2022 7:50 AM EDT) P athologist Signature Magnesium 0.74 0.69 - 1.07 [facility] mmol/L [facility] LABORATORY Specimen Anatomical Collection Method Collection Time Receive d Time (Source) Location / / Volume Laterality Blood 02/03/2022 7:50 AM 2 9:05 EDT AM EDT Resulting Agency Comment Spec In Lab Dilshad Osullivan MD CHEMISTRY ORDERABLES Performing Organization Address City/[facility]/[place] [address] (ABNORMAL) Comprehensive metabolic panel (non-fasting) (02/03/2022 7:50 AM EDT) P athologist Signature Glucose Lvl 92 65 - 199 [facility] mg/dL [facility] Comment: Diabetes: >=200 mg/dL plus symp toms BUN 61 (H) 10 - 20 mg/dL [facility] Creatinine 2.67 (H) 0.80 - 1.50 mg/dL [facility] Sodium 130 (L) 135 - 145 mmol/L [facility] Potassium 6.1 (Critical) 3.5 - 5.0 mmol/L [facility] Comment: Called by: SS, Read back by: Angélica marquez, Date/Time:02/03/22 10:07. Please note: ??Patients with WBC >100,00 0 may have falsely elevated Potassium levels. ??For accurate Potassium quantif ication in these patients send serum separator tube (gold top) for subsequent determinations. ??Contact the Clinical Chemistry Laboratory if there are any qu estions. Chloride 97 (L) 98 - 107 mmol/L [facility] CO2 19 (L) 22 - 31 mmol/L [facility] Anion Gap 14 5 - 15 mmol/L [facility] Calcium 9.3 8.5 - 10.5 mg/dL [facility] Total Protein 5.7 (L) 6.1 - 8.0 g/dL [facility] Albumin 3.7 3.2 - 5.2 g/dL [facility] AST 16 0 - 39 unit/L [facility] ALT 18 0 - 55 unit/L [facility] Alk Phos 85 40 - 130 unit/L [facility] Total Bilirubin 0.4 0.2 - 1.3 mg/dL [facility] Estimated GFR 26 (L) >=60 mL/min/1.73 m?? [facility] Comment: This patient's estimated GFR [...] Organization Address City/State/ZIP Code Phon e Number [address] Magnesium (01/27/2022 7:35 AM EDT) athologist Signature Magnesium 0.71 0.69 - 1.07 [facility] mmol/L [facility]OR[facility]ORY Specimen Anatomical Collection Method Collection Time Receive d Time (Source) Location / / Volume Laterality Blood 01/27/2022 7:35 AM 2 7:57 EDT AM EDT Resulting Agency Comment Spec In Lab Dilshad Osullivan MD CHEMISTRY ORDERABLES Performing Organization Address City/State/[place] [address] (ABNORMAL) Comprehensive metabolic panel (non-fasting) (01/27/2022 7:35 AM EDT) athologist Signature Glucose Lvl 88 65 - 199 [facility] mg/dL [facility] Comment: Diabetes: >=200 mg/dL plus symp toms BUN 49 (H) 10 - 20 mg/dL [facility] Creatinine 1.87 (H) 0.80 - 1.50 mg/dL [facility] Sodium 135 135 - 145 mmol/L [facility] Potassium 6.0 (H) 3.5 - 5.0 mmol/L [facility] Comment: Please note: ??Patients with WBC >100,00 0 may have falsely elevated Potassium levels. ??For accurate Potassium quantif ication in these patients send serum separator tube (gold top) for subsequent determinations. ??Contact the Clinical Chemistry Laboratory if there are any qu estions. Chloride 104 98 - 107 mmol/L [facility] CO2 21 (L) 22 - 31 mmol/L [facility] Anion Gap 10 5 - 15 mmol/L [facility] Calcium 9.4 8.5 - 10.5 mg/dL [facility] Total Protein 5.9 (L) 6.1 - 8.0 g/dL [facility] Albumin 3.7 3.2 - 5.2 g/dL [facility] AST 18 0 - 39 unit/L [facility] ALT 20 0 - 55 unit/L [facility] Alk Phos 105 40 - 130 unit/L [facility] Total Bilirubin 0.5 0.2 - 1.3 mg/dL [facility] Estimated GFR 38 (L) >=60 mL/min/1.73 m?? [facility] [...] Organization Address City/State/ZIP Code Phon e Number [address] (ABNORMAL) Magnesium (01/20/2022 11:45 AM EDT) athologist Signature Magnesium 0.61 (L) 0.69 - 1.07 [facility] mmol/L [facility] LABORATORY Specimen Anatomical Collection Method Collection Time Receive d Time (Source) Location / / Volume Laterality Blood 01/20/2022 11:45 01/20/2022 AM EDT 11:56 AM EDT Resulting Agency Comment Spec In Lab Dilshad Osullivan MD CHEMISTRY ORDERABLES Performing Organization Address City/[facility]/ZIP Code Phon e Number [address] (ABNORMAL) Comprehensive metabolic panel (non-fasting) (01/20/2022 11:45 AM EDT) athologist Signature Glucose Lvl 124 65 - 199 [facility] mg/dL [facility] Comment: Diabetes: >=200 mg/dL plus symp toms BUN 62 (H) 10 - 20 mg/dL [facility] Creatinine 2.32 (H) 0.80 - 1.50 mg/dL [facility] Sodium 135 135 - 145 mmol/L [facility] Potassium 5.3 (H) 3.5 - 5.0 mmol/L [facility] Comment: Please note: ??Patients with WBC >100,00 0 may have falsely elevated Potassium levels. ??For accurate Potassium quantif ication in these patients send serum separator tube (gold top) for subsequent determinations. ??Contact the Clinical Chemistry Laboratory if there are any qu estions. Chloride 106 98 - 107 mmol/L [facility] CO2 17 (L) 22 - 31 mmol/L [facility] Anion Gap 12 5 - 15 mmol/L [facility] Calcium 9.0 8.5 - 10.5 mg/dL [facility] Total Protein 5.4 (L) 6.1 - 8.0 g/dL [facility] Albumin 3.3 3.2 - 5.2 g/dL [facility] AST 14 0 - 39 unit/L [facility] ALT 15 0 - 55 unit/L [facility] Alk Phos 113 40 - 130 unit/L [facility] Total Bilirubin 0.3 0.2 - 1.3 mg/dL [facility] Estimated GFR 29 (L) >=60 mL/min/1.73 m?? [facility] [...] Organization Address City/State/ZIP [place] [address] Magnesium (01/17/2022 8:50 AM EDT) P athologist Signature Magnesium 0.72 0.69 - 1.07 [facility] mmol/L [facility]OR[facility] Specimen Anatomical Collection Method Collection Time Receive d Time (Source) Location / / Volume Laterality Blood 01/17/2022 8:50 AM 9:14 EDT AM EDT Resulting Agency Comment Spec In Lab Dilshad Osullivan MD CHEMISTRY ORDERABLES Performing Organization Address City/State/ZIP [place] [address] (ABNORMAL) Comprehensive metabolic panel (non-fasting) (01/17/2022 8:50 AM EDT) P athologist Signature Glucose Lvl 130 65 - 199 [facility] mg/dL [facility] Comment: Diabetes: >=200 mg/dL plus symp toms BUN 58 (H) 10 - 20 mg/dL [facility] Creatinine 1.95 (H) 0.80 - 1.50 mg/dL [facility] Sodium 137 135 - 145 mmol/L [facility] Potassium 5.3 (H) 3.5 - 5.0 mmol/L [facility] Comment: Please note: ??Patients with [...] Gap 16 (H) 5 - 15 mmol/L [facility] Calcium 9.1 8.5 - 10.5 mg/dL [facility] Total Protein 6.1 6.1 - 8.0 g/dL [facility] Albumin 3.6 3.2 - 5.2 g/dL [facility] AST 17 0 - 39 unit/L [facility] ALT 19 0 - 55 unit/L [facility] Alk Phos 130 40 - 130 unit/L [facility] Total Bilirubin 0.4 0.2 - 1.3 mg/dL [facility] Estimated GFR 36 (L) >=60 [...] / Volume Laterality Blood 01/17/2022 8:50 AM 9:14 EDT AM EDT Resulting Agency Comment Spec In Lab Dilshad Osullivan MD CHEMISTRY ORDERABLES Performing Organization Address City/[facility]/[place] [address] (ABNORMAL) Magnesium (12/23/2021 10:10 AM EDT) P athologist Signature Magnesium 0.61 (L) 0.69 - 1.07 [facility] mmol/L [facility] Specimen Anatomical Collection Method Collection Time Receive d Time (Source) Location / / Volume Laterality Blood 12/23/2021 10:10 12/23/2021 AM EDT 10:22 AM EDT Resulting Agency Comment Spec In Lab Dilshad Osullivan MD CHEMISTRY ORDERABLES Performing Organization Address City/[facility]/ZIP [facility] [place] [place] [address] (ABNORMAL) Comprehensive metabolic panel (non-fasting) (12/23/2021 10:10 AM EDT) athologist Signature Glucose Lvl 108 65 - 199 [facility] mg/dL [facility] Comment: Diabetes: >=200 mg/dL plus symp toms BUN 27 (H) 10 - 20 mg/dL [facility] Creatinine 1.99 (H) 0.80 - 1.50 mg/dL [facility] Sodium 135 135 - 145 mmol/L [facility] Potassium 3.9 3.5 - 5.0 mmol/L [facility] Comment: Please note: ??Patients with WBC >100,00 0 may have falsely elevated Potassium levels. ??For accurate Potassium quantif ication in these patients send serum separator tube (gold top) for subsequent determinations. ??Contact the Clinical Chemistry Laboratory if there are any qu estions. Chloride 103 98 - 107 mmol/L [facility] CO2 17 (L) 22 - 31 mmol/L [facility] Anion Gap 15 5 - 15 mmol/L [facility] Calcium 9.3 8.5 - 10.5 mg/dL [facility] Total Protein 6.7 6.1 - 8.0 g/dL [facility] Albumin 4.0 3.2 - 5.2 g/dL [facility] AST 17 0 - 39 unit/L [facility] ALT 20 0 - 55 unit/L [facility] Alk Phos 197 (H) 40 - 130 unit/L [facility] Total Bilirubin 0.6 0.2 - 1.3 mg/dL [facility] Estimated GFR 35 (L) >=60 mL/min/1.73 m?? [facility] [...] ORDERABLES Performing Organization Address City/[facility]/ZIP Code Phon e Number [address] (ABNORMAL) Magnesium (12/20/2021 9:35 AM EDT) athologist Signature Magnesium 0.57 (L) 0.69 - 1.07 [facility] mmol/L [facility] Specimen Anatomical Collection Method Collection Time Receive d Time (Source) Location / / Volume Laterality Blood 12/20/2021 9:35 AM 9:51 EDT AM EDT Resulting Agency Comment Spec In Lab Dilshad Osullivan MD CHEMISTRY ORDERABLES Performing Organization Address City/[facility] [place] [address] (ABNORMAL) Comprehensive metabolic panel (non-fasting) (12/20/2021 9:35 AM EDT) athologist Signature Glucose Lvl 101 65 - 199 [facility] mg/dL [facility] LABORATORY Comment: Diabetes: >=200 mg/dL plus symp toms BUN 21 (H) 10 - 20 mg/dL [facility]OR[facility] Creatinine 1.47 0.80 - 1.50 mg/dL [facility] Sodium 138 135 - 145 mmol/L [facility] Potassium 4.1 3.5 - 5.0 mmol/L [facility] Comment: Please note: ??Patients with WBC >100,00 0 may have falsely elevated Potassium levels. ??For accurate Potassium quantif ication in these patients send serum separator tube (gold top) for subsequent determinations. ??Contact the Clinical Chemistry Laboratory if there are any qu estions. Chloride 107 98 - 107 mmol/L [facility] CO2 19 (L) 22 - 31 mmol/L [facility] Anion Gap 12 5 - 15 mmol/L [facility] Calcium 9.3 8.5 - 10.5 mg/dL [facility] K [facility] LABOR[facility] Total Protein 6.6 6.1 - 8.0 g/dL [facility] Albumin 3.9 3.2 - 5.2 g/dL [facility] AST 22 0 - 39 unit/L [facility] ALT 20 0 - 55 unit/L [facility] Alk Phos 178 (H) 40 - 130 unit/L [facility] Total Bilirubin 0.5 0.2 - 1.3 mg/dL [facility] Estimated GFR 51 (L) >=60 mL/min/1.73 m?? [facility] [...] Organization Address City/State/ZIP [place] [address] (ABNORMAL) Magnesium (12/13/2021 9:20 AM EDT) P athologist Signature Magnesium 0.66 (L) 0.69 - 1.07 [facility] mmol/L [facility] LABOR[facility]ORY Specimen Anatomical Collection Method Collection Time Receive d Time (Source) Location / / Volume Laterality Blood 12/13/2021 9:20 AM 9:55 EDT AM EDT Resulting Agency Comment Spec In Lab Dilshad Osullivan MD CHEMISTRY ORDERABLES Performing Organization Address City/State/ZIP [place] [address] (ABNORMAL) Comprehensive metabolic panel (non-fasting) (12/13/2021 9:20 AM EDT) P athologist Signature Glucose Lvl 105 65 - 199 [facility] mg/dL [facility] Comment: Diabetes: >=200 mg/dL plus symp toms BUN 45 (H) 10 - 20 mg/dL [facility] Creatinine 2.80 (H) 0.80 - 1.50 mg/dL [facility] Sodium 135 135 - 145 mmol/L [facility] Potassium 5.0 3.5 - 5.0 mmol/L [facility] Comment: Please note: ??Patients with WBC >100,00 0 may have falsely elevated Potassium levels. ??For accurate Potassium quantif ication in these patients send serum separator tube (gold top) for subsequent determinations. ??Contact the Clinical Chemistry Laboratory if there are any qu estions. Chloride 105 98 - 107 mmol/L [facility] CO2 16 (L) 22 - 31 mmol/L [facility] Anion Gap 14 5 - 15 mmol/L [facility] Calcium 9.9 8.5 - 10.5 mg/dL [facility] Total Protein 7.3 6.1 - 8.0 g/dL [facility] Albumin 3.9 3.2 - 5.2 g/dL [facility] AST 16 0 - 39 unit/L [facility] ALT 15 0 - 55 unit/L [facility] Alk Phos 287 (H) 40 - 130 unit/L [facility] Total Bilirubin 0.4 0.2 - 1.3 mg/dL [facility] Estimated GFR 23 (L) >=60 mL/min/1.73 m?? [facility] [...] Organization Address City/State/ZIP Code Phon e Number [address] (ABNORMAL) Magnesium (12/09/2021 10:50 AM EDT) P athologist Signature Magnesium 0.68 (L) 0.69 - 1.07 [facility] mmol/L [facility] LABORATORY Specimen Anatomical Collection Method Collection Time Receive d Time (Source) Location / / Volume Laterality Blood 12/09/2021 10:50 12/09/2021 AM EDT 10:56 AM EDT Resulting Agency Comment Spec In Lab Dilshad Osullivan MD CHEMISTRY ORDERABLES Performing Organization Address City/State/[place] [address] (ABNORMAL) Comprehensive metabolic panel (non-fasting) (12/09/2021 10:50 AM EDT) P athologist Signature Glucose Lvl 110 65 - 199 [facility] mg/dL [facility]ORY Comment: Diabetes: >=200 mg/dL plus symp toms BUN 35 (H) 10 - 20 mg/dL [facility] Creatinine 2.85 (H) 0.80 - 1.50 mg/dL [facility] Sodium 134 (L) 135 - 145 mmol/L [facility] Potassium 5.3 (H) 3.5 - 5.0 mmol/L [facility] Comment: Please note: ??Patients with WBC >100,00 0 may have falsely elevated Potassium levels. ??For accurate Potassium quantif ication in these patients send serum separator tube (gold top) for subsequent determinations. ??Contact the Clinical Chemistry Laboratory if there are any qu estions. Chloride 101 98 - 107 mmol/L [facility] CO2 17 (L) 22 - 31 mmol/L [facility] Anion Gap 16 (H) 5 - 15 mmol/L [facility] Calcium 9.6 8.5 - 10.5 mg/dL [facility] Total Protein 7.4 6.1 - 8.0 g/dL [facility] Albumin 4.0 3.2 - 5.2 g/dL [facility] AST 22 0 - 39 unit/L [facility] ALT 22 0 - 55 unit/L [facility] Alk Phos 453 (H) 40 - 130 unit/L [facility] Total Bilirubin 0.5 0.2 - 1.3 mg/dL [facility] Estimated GFR 23 (L) >=60 mL/min/1.73 m?? [facility] [...] ORDERABLES Performing Organization Address City/[facility]/ZIP Code Phon e Number [address] Magnesium (12/02/2021 9:45 AM EDT) athologist Signature Magnesium 0.78 0.69 - 1.07 [facility] mmol/L [facility] LABORATORY Specimen Anatomical Collection Method Collection Time Receive d Time (Source) Location / / Volume Laterality Blood 12/02/2021 9:45 AM EDT 10:00 AM EDT Resulting Agency Comment Spec In Lab Dilshad Osullivan MD CHEMISTRY ORDERABLES Performing Organization Address City/[facility]/[place] [address] (ABNORMAL) Comprehensive metabolic panel (non-fasting) (12/02/2021 9:45 AM EDT) athologist Signature Glucose Lvl 122 65 - 199 [facility] mg/dL [facility]OR[facility]ORY Comment: Diabetes: >=200 mg/dL plus symp toms BUN 23 (H) 10 - 20 mg/dL [facility] Creatinine 2.49 (H) 0.80 - 1.50 mg/dL [facility] Sodium 130 (L) 135 - 145 mmol/L [facility] Potassium 4.7 3.5 - 5.0 mmol/L [facility] Comment: Please note: ??Patients with WBC >100,00 0 may have falsely elevated Potassium levels. ??For accurate Potassium quantif ication in these patients send serum separator tube (gold top) for subsequent determinations. ??Contact the Clinical Chemistry Laboratory if there are any qu estions. Chloride 100 98 - 107 mmol/L [facility] CO2 19 (L) 22 - 31 mmol/L [facility] Anion Gap 11 5 - 15 mmol/L [facility] Calcium 9.4 8.5 - 10.5 mg/dL [facility] K [facility] LABORATORY Total Protein 6.9 6.1 - 8.0 g/dL [facility] Albumin 3.6 3.2 - 5.2 g/dL [facility] AST 33 0 - 39 unit/L [facility] ALT 29 0 - 55 unit/L [facility] Alk Phos 414 (H) 40 - 130 unit/L [facility] Total Bilirubin 0.6 0.2 - 1.3 mg/dL [facility] Estimated GFR 27 (L) >=60 mL/min/1.73 m?? [facility] [...] (Source) Location / / Volume Laterality Blood 12/02/2021 9:45 AM 2 EDT 10:00 AM EDT Resulting Agency Comment Spec In Lab Dilshad Osullivan MD CHEMISTRY ORDERABLES Performing Organization Address City/State/ZIP [place] [address] documented in this encounter [...] neoplastic disease Weakness acquired in ICU Dehydration Acute myeloid leukemia in remission documented in this encounter Additional Health Concerns Infection Onset Date Last Indicated Resolved Time History of C. difficileComment: C. diffiicile 08/20/2021 testing positive 05/25/21. documented as of this encounter Care Teams Fisher Trap Relationship Specialty Start Date End Date Beatriz Maurice PA PCP - General Family Medicine 05/06/21 [address] [place] [address] documented as of this encounter
--- OUTSIDE RECORDS SUMMARY | 2022-02-14 11:10 | XMS_ITS | Encounter Summary ---
:1960 Author Organization [facility] Address [facility] [place] [address] Care Team Providers Name Role Phone Beatriz Maurice Primary Care Provider Encounter Details Date Type Department Care Team Description 11/28/2021 Orders Only [facility] Catie narvaez [place] [address] DEPT. [phone] [place], [place] [address] (Wo rk) Social History Tobacco [...] Visit Hematology and Oncology Parviz Modi MD [facility] [address] HEMATOLOGY/[place] [address] Miroslava Pelayo APRN [facility] HEMATOLOGY/[place] [address] 02/24/2022 Office Visit Wound Care 02/24/2022 Appointment Hematology and Oncology 02/26/2022 Office Visit Neurology Leni Bustamante MD [facility] NEUROLOGY DEPT. [place], [place] [address] (Wo rk) documented as of this encounter Visit Diagnoses Not on filedocumented in this encounter Additional Health Concerns Infection Onset Date Last Indicated Resolved Time History of C. difficileComment: C. diffiicile 08/20/2021 testing positive 05/25/21. documented as of this encounter Care Teams Welfare Case Worker Relationship Specialty Start Date End Date Beatriz Maurice PA PCP - General Family Medicine 05/06/21 [address] [place] [address] documented as of this encounter
--- OUTSIDE RECORDS SUMMARY | 2022-02-14 11:10 | XMS_ITS | Encounter Summary ---
:1960 Author Organization [facility] Address [facility] [place] [address] Care Team Providers Name Role Phone Beatriz Maurice Primary Care Provider Encounter Details Date Type Department Care Team Description 11/25/2021 Office Visit Hematology and Radha Modi MD [facility] DR HEMATOLOGY/[place] [address] S/P allogeneic bone marrow transplant; Oncology at [facility] Miroslava Pelayo [facility] DR HEMATOLOGY/[place] [address] Acute myeloid leukemia in remission [facility] Hayley Palmer, [facility] DR [place]EMATOLOGY[place] [address] [place] [id number] Social History Tobacco Use Types Packs/Day Years [...] Sign Reading Time Taken Comments Blood Pressure 94/79 11/25/2021 11:26 AM EDT Pulse 91 11/25/2021 11:26 AM EDT Temperature 36.8 ??C (98.2 ??F) 11/25/2021 11:26 AM EDT Respiratory Rate 28 11/25/2021 11:26 AM EDT Oxygen Saturation 99% 11/25/2021 11:26 AM EDT Inhaled Oxygen Concentration - - Weight 99.1 kg (218 lb 7.3 oz) 11/25/2021 11:26 AM EDT Height 178 cm (5' 10.08) 11/25/2021 11:26 AM EDT Body Mass Index 31.27 11/25/2021 11:26 AM EDT documented in this encounter Progress Notes Hayley Palmer, FLIGHT FOLLOWER - 11/25/2021 11:15 AM EDT HEMATOLOGY/BMT CONSULTATION VISIT NOTE CHIEF COMPLAINT: Herber Iverson Jr. is a 61 y.o. male originally referred by Dr. Beatriz Maurice for evaluation of leukemia. He is seen in follow-up today. Data Review (From Recent Hospital discharge summary and the EMR) Admitted to [facility] 04/29/21 for leukocytosus. Discharged 04/30/21. 04/30/21 [...] [place] [address]/10,000 ABL1 copies (135.80%.) 08/08/21 Discharged after reinduction with gilteritinib and venetoclax and initial clearance of RESIDENTIAL INSURANCE INSPECTOR leukemia. 08/12/21 LP - FELY 08/26/21 LP [...] abnormal counts and he was admitted to [facility]. 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 He is accompanied today by his partner the piper Nielsen. Herber remains quite deconditioned and reports he really has no energy. He states he knows he is not taking in enough fluids but still has no appetite. He has occasional dry heaves but denies any chronic nausea. No vomiting. No fevers. No focal sxs of GVHD Remainder of ros neg. Current tacrolimus dose: 1.5 a.m. 0.5 pm Hold today's dose? Yes Fevers, chills, sweats - none Bleeding, bruising, melena - none Energy level - poor Appetite - no real appetite Colostomy -functioning well, no issues. 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 Social - has a girlfriend and his [...] (acute kidney injury) N17.9 ??? Dehydration E86.0 MEDICATIONS Current Outpatient Medications Medication Instructions ??? acyclovir (ZOVIRAX) 800 mg, Oral, 2 TIMES DAILY ??? aspirin 81 mg, Oral, DAILY ??? Colostomy Belt (Ostomy Belt Medium) Misc Dispense 1 Sensura Flako Belt #3300 per month. ??? flecainide (TAMBOCOR) 50 mg, [...] boxes ( 10/box) of Adapt Barrier rings #0098 per month. ??? Ostomy Supplies Misc Dispense 2 boxes (10/box) of Sensura [place] Soft Convex One-piece Pouch #[id number] month. ??? Ostomy Supplies Misc Dispense 2 boxes (20/box) of Brava Elastic Barrier strips #[id number] per month. ??? Ostomy Supplies Misc Dispense [...] rash and is itchy. PHYSICAL EXAM Vitals: Oncology Vitals 11/25/2021 Weight (kg) 99.09 kg Weight (lb) 218 lb 7.3 oz Height 178 cm BSA (Calculated - sq m) 2.21 BMI (Calculated) 31.27 Temp 98.2 Temp src 2 Pulse 91 Heart Rate Source Left Resp 28 BP 94/79 BP Location Right arm Patient Position Sitting SpO2 99 Gen Paul Craven is very weak and fatigued. HEENT - Sclerae anicteric; oral pharynx w/ oral candidiasis Neck - Full range of motion, no palpable thyromegaly. Lungs - CTA, without wheezes or rales. Heart - RRR, S1,S2, no murmur, rub or gallop. Abd - soft, non-tender. Ostomy bag functioning Extremities - No edema. Skin - residual petechial rash on legs, trunk Neurologic - mildly tremulous hands otherwise grossly intact LABORATORY Recent Results (from the past 72 hour(s)) Hemogram Result Value Ref Range WBC 9.7 [...] Range Plat Estimate Decreased RBC Morphology Normal Comprehensive metabolic panel (non-fasting) Result Value Ref Range Glucose Lvl 111 65 - 199 mg/dL BUN 38 (H) 10 - 20 mg/dL Creatinine 3.28 (H) 0.80 - 1.50 mg/dL Sodium 133 (L) 135 - 145 mmol/L Potassium 5.2 (H) 3.5 - 5.0 mmol/L Chloride 102 98 - 107 mmol/L CO2 18 (L) 22 - 31 mmol/L Anion Gap 13 5 - 15 mmol/L Calcium 9.4 8.5 - 10.5 mg/dL Total Protein 7.1 6.1 - 8.0 g/dL Albumin 3.6 3.2 - 5.2 g/dL AST 17 0 - 39 unit/L ALT 14 0 - 55 unit/L Alk Phos 127 40 - 130 unit/L Total Bilirubin 0.5 0.2 - 1.3 mg/dL Estimated GFR 19 (L) >=60 mL/min/1.73 m?? Magnesium Result Value Ref Range Magnesium 0.65 (L) 0.69 - 1.07 mmol/L Phosphorus Result Value Ref Range Phosphorus 4.2 2.5 - 4.5 mg/dL Lactate Dehydrogenase Result Value Ref Range LDH 307 (H) 110 - 220 unit/L Hemogram Result Value Ref Range WBC 9.6 (H) 4.0 - 9.5 x10(3)/mcL RBC 2.70 (L) 4.58 - 5.54 x10(6)/mcL Hemoglobin 8.4 (L) 13.7 - 16.5 g/dL Hematocrit 24.9 (L) 40.5 - 48.5 % MCV 92.2 82.9 - 93.1 fL MCH 31.1 27.5 - 32.1 pg MCHC 33.7 32.0 - 35.7 g/dL Platelets 48 (L) 145 - 357 x10(3)/mcL RDWSD 48.4 (H) 36.0 - 45.0 fL RDWCV 16.7 (H) 11.4 - 13.8 % MPV 12.1 7.6 - 12.9 fL nRBC % Auto 0.4 % nRBC Abs Auto 0.040 (H) 0.000 - 0.000 x10(3)/mcL Differential, Automated Result Value Ref Range Neutrophils % 73.7 % Neutr Abs (ANC) 7.08 (H) 1.70 - 6.10 x10(3)/mcL Lymphocytes % 6.5 % Lymphocytes Abs 0.6 (L) 0.9 - 3.2 x10(3)/mcL Monocytes % 13.4 % Monocyte Abs 1.3 (H) 0.3 - 0.9 x10(3)/mcL Eosinophils % 4.3 % Eosinophils Abs 0.4 0.0 - 0.4 x10(3)/mcL Basophils % 1.1 % Basophils Abs 0.1 0.0 - 0.1 x10(3)/mcL Immature Gran % 1.00 % Zara Gran Abs 0.10 (H) 0.00 [...] functioning well --No diarrhea 4. Renal --Creatinine remains elevated --1 liter IV fluids -- Reviewed the need to increase fluids -- Fluconazole dose-reduced to 200 mg / day -- Continue to hold Bactrim 5. FEN --Hypomag: Begin Mag plus protein 3 tabs TID --IV Mag 2 gms today 6. Deconditioning --Herber is trying to move around more at home --Continue to use walker for safety 7. Counseling Reviewed with Herber and Morales the need to push more fluids to protect his kidneys. They verbalized anunderstanding. Herber also has oral candidiasis so will begin Nystatin S/S. Herber will benefit from continued IV fluids so will set up for a liter locally along with IV Mag on . 8. Summary of Plans 1 liter of normal saline 2 gms IV mag Continue Tacrolimus at 0.5 mg BID HOLD Bactrim Continue Fluconazole at 200 mg / day Continue Mag 3 tabs TID Increase fluid intake Stay active at home Immunizations at 6 months Follow up at [facility] w/ labs, IV fluids, Mag on Follow up on Thursday w/ labs, clinic visit, infusion time Hayley Palmer APRN Section of Hematology [facility] documented in this encounter Plan of Treatment Upcoming Encounters Date Type Specialty Care Team Description 02/18/2022 Infusion Hematology and Oncology 02/21/2022 Infusion Hematology and Oncology 02/24/2022 Appointment Hematology and Oncology 02/24/2022 Office Visit Hematology and Oncology Parviz Modi MD [facility] DR HEMATOLOGY/[place] [address] Miroslava Pelayo APRN [facility] HEMATOLOGY/[place] [address] 02/24/2022 Office Visit Wound Care 02/24/2022 Appointment Hematology and Oncology 02/26/2022 Office Visit Neurology Leni Bustamante MD [facility] NEUROLOGY DEPT. [place], [place] [address] (Wo rk) documented as of this encounter Visit Diagnoses Diagnosis S/P allogeneic bone marrow transplant Bone marrow replaced by transplant Acute myeloid leukemia in remission documented in this encounter Additional Health Concerns Infection Onset Date Last Indicated Resolved Time History of C. difficileComment: C. diffiicile 08/20/2021 testing positive 05/25/21. documented as of this encounter Care Teams Information Technology Teacher Relationship Specialty Start Date End Date Beatriz Maurice PA PCP - General Family Medicine 05/06/21 [address] [place] [address] documented as of this encounter
--- OUTSIDE RECORDS SUMMARY | 2022-02-14 11:10 | XMS_ITS | Encounter Summary ---
:1960 Author Organization [facility] Address [facility] [place] [address] Care Team Providers Name Role Phone Beatriz Maurice Primary Care Provider Encounter Details Date Type Department Care Team Description 11/28/2021 Notes Only Hematology/Oncology at [facility] OFFICE OF CARE [address] [place] [phone] Social History Tobacco Use Types Packs/Day Years [...] documented as of this encounter Progress Notes Jaquelin Muller MSW - 11/28/2021 9:31 AM EDT Reviewed notes from GIANNA Teran. Met Herber during his infusion visit for hydration at [facility]. Introduced myself and gave him TRAFFIC SAFETY ADMINISTRATOR contact information as a local resources at this facility. Notify Ms. Barnard of this. Other: local resource documented in this encounter Plan of Treatment Upcoming Encounters Date Type Specialty Care Team Description 02/18/2022 Infusion Hematology and Oncology 02/21/2022 Infusion Hematology and Oncology 02/24/2022 Appointment Hematology and Oncology 02/24/2022 Office Visit Hematology and Oncology Parviz Modi MD [facility] [address] HEMATOLOGY/[place] [address] Miroslava Pelayo APRN [facility] [address] HEMATOLOGY/[place] [address] 02/24/2022 Office Visit Wound Care 02/24/2022 Appointment Hematology and Oncology 02/26/2022 Office Visit Neurology Leni Bustamante MD [facility] DR NEUROLOGY DEPT. [place], [place] [address] (Wo rk) documented as of this encounter Visit Diagnoses Not on filedocumented in this encounter Additional Health Concerns Infection Onset Date Last Indicated Resolved Time History of C. difficileComment: C. diffiicile 08/20/2021 testing positive 05/25/21. documented as of this encounter Care Teams Information Resource Consultant Relationship Specialty Start Date End Date Beatriz Maurice PA PCP - General Family Medicine 05/06/21 [address] [place] [address] documented as of this encounter
--- OUTSIDE RECORDS SUMMARY | 2022-02-14 11:10 | XMS_ITS | Encounter Summary ---
:1960 Author Organization [facility] [place] [address] Care Team Providers Name Role Phone Beatriz Maurice Primary Care Provider Encounter Details Date Type Department Care Team Description 11/26/2021 Orders Only Hematology and Hayley Palmer S/P alloge neic bone marrow transplant; Oncology at [facility] C, MILK VENDOR Acute myeloid leukemia in remission; [facility] (acut e kidney injury); [facility] [address] [place], [place] HEMATOLOGY-ONCOLO [address] [place] DEPT. [phone] [place], [place] [address] Social History Tobacco Use Types Packs/Day [...] MD [facility] DR HEMATOLOGY/[place] [address] Miroslava Pelayo APRN [facility] HEMATOLOGY/[place] [address] 02/24/2022 Office Visit Wound Care 02/24/2022 Appointment Hematology and Oncology 02/26/2022 Office Visit Neurology Lein Bustamante MD [facility] DR NEUROLOGY DEPT. [place], [place] [address] (Wo rk) documented as of this encounter Visit Diagnoses Diagnosis S/P allogeneic bone marrow transplant Bone marrow replaced by transplant Acute myeloid leukemia in remission STACIE (acute kidney injury) Acute kidney failure, unspecified Hypomagnesemia Disorders of magnesium metabolism documented in this encounter Additional Health Concerns Infection Onset Date Last Indicated Resolved Time History of C. difficileComment: C. diffiicile 08/20/2021 testing positive 05/25/21. documented as of this encounter Care Teams Assistant To The Vice President Relationship Specialty Start Date End Date Beatriz Maurice PA PCP - General Family Medicine 05/06/21 [address] [place] [address] documented as of this encounter
--- OUTSIDE RECORDS SUMMARY | 2022-02-14 11:10 | XMS_ITS | Encounter Summary ---
:1960 Author Organization [facility] Address [facility] [place] [address] Care Team Providers Name Role Phone Beatriz Maurice Primary Care Provider Encounter Details Date Type Department Care Team Description 12/02/2021 External Results Hematology and Parviz Mdoi, Oncology at [facility] [address] HEMATOLOGY/[place] [address] DEPT. [phone] [place], [place] [address] (Wo rk) Social History Tobacco [...] MD [facility] DR HEMATOLOGY/[place] [address] Miroslava Pelayo APRN [facility] HEMATOLOGY/[place] [address] 02/24/2022 Office Visit Wound Care 02/24/2022 Appointment Hematology and Oncology 02/26/2022 Office Visit Neurology Leni Bustamante MD [facility] ER NEUROLOGY DEPT. [place], [place] [address] (Wo rk) documented as of this encounter Procedures Procedure Name Priority Date/Time Associated Diagnosis Comme nts CBC (WITH DIFF) Routine 11/29/2021 Results for this procedure are i n the results section . MAGNESIUM Routine 11/29/2021 Results for thi s procedure are i n the results section . BASIC METABOLIC PANEL Routine 11/29/2021 Result s for this (NON-FASTING) procedure are in the results section . documented in this encounter Results (ABNORMAL) Basic Metabolic Panel (non-fasting) (11/29/2021) athologist Signature Glucose Lvl 115 (A) 74 - 106 mg/dL BUN 34 (A) 7 - 18 mg/dL Creatinine 3.1 (A) 0.7 - 1.3 mg/dL Sodium 135 (A) 136 - 145 mmol/L Potassium 4.8 3.5 - 5.1 mmol/L Specimen (Source) Anatomical Location Collection Method / Collectio n Time Received Time / Laterality Volume Blood 11/29/2021 Historical Provider CHEMISTRY ORDERABLES (ABNORMAL) CBC (with Diff) (11/29/2021) Analysis Performed At Patho logist Time Signature WBC 7.68 4.4 - 10.8 Hemoglobin 7.6 (A) 13.5 - 17.5 Hematocrit 22.5 (A) 40.0 - 50.0 Platelets 50 (A) 130 - 400 Neutr Abs (ANC) 4.7 1.2 - 6.7 Specimen (Source) Anatomical Location Collection Method / Collectio n Time Received Time / Laterality Volume Blood 11/29/2021 Historical Provider HEMATOLOGY ORDERABLES Magnesium (11/29/2021) P athologist Signature Magnesium 2 1.8 - 2.4 mg/dL Specimen (Source) Anatomical Location Collection Method / Collectio n Time Received Time / Laterality Volume Blood 11/29/2021 Historical Provider CHEMISTRY ORDERABLES documented in this encounter Visit Diagnoses Not on filedocumented in this encounter Additional Health Concerns Infection Onset Date Last Indicated Resolved Time History of C. difficileComment: C. diffiicile 08/20/2021 testing positive 05/25/21. documented as of this encounter Care Teams Steward/Stewardess Bath Relationship Specialty Start Date End Date Beatriz Maurice PA PCP - General Family Medicine 05/06/21 [address] [place] [address] documented as of this encounter
--- OUTSIDE RECORDS SUMMARY | 2022-02-14 11:10 | XMS_ITS | Encounter Summary ---
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 [address] Referral ID Status Reason Start Date Expiration Date Visits V isits Requested Authorized [id number] Authorized 11/22/2021 11/22/2022 99 99 Encounter Details Date Type Department Care Team Description 11/25/2021 Hospital Encounter Hematology and S/P all ogeneic bone marrow transplant; [place] [facility] [place] [address] Social History Tobacco Use Types Packs/Day [...] 20 each 11 2 (10/box) of Sensura Luck Soft Convex One-piece Pouch #[id number] per month. Ostomy Supplies Misc Dispense 2 boxes 40 each 2 (20/box) of Brava Elastic Barrier strips #[id number] per month. Ostomy Supplies Misc Dispense 1 [...] mutation Colostomy Belt (Ostomy Dispense 1 Sensura Luck 1 each 11 0 08/20/2021 12/13/2021 Belt Medium) [facility] Belt #[id number] per month. documented as of this encounter Progress Notes Latasha Caceres RN - 11/25/2021 1:22 PM EDT Herber Iverson Jr., 61 y.o. male with 1. S/P allogeneic bone marrow transplant 2. Acute myeloid leukemia in remission is here for infusion of hydration and magnesium 2 g. S: Pt. offers no complaints. O: Orders independently verified for drug name, route and dosage by Latasha Caceres RN and on site pharmacist REACTIONS (DESCRIPTION, TIME, INTERVENTION AND EFFECTIVENESS) none A: Pt. Tolerated treatment well. Herber Butts Kishor Anne confirms that all questions and issues have been addressed. P: Return to clinic per routine. Patient Name: Herber Iverson Jr. Patient Age: 61 y.o. Birthdate: 1960 Admit date: 11/25/2021 Attending Physician: No att. providers found documented in this encounter Plan of Treatment Upcoming Encounters Date Type Specialty Care Team Description 02/18/2022 Infusion Hematology and Oncology 02/21/2022 Infusion Hematology and Oncology 02/24/2022 Appointment Hematology and Oncology 02/24/2022 Office Visit Hematology and Oncology Parviz Modi MD [facility] DR HEMATOLOGY/[place] [address] Miroslava Pelayo APRN [facility] DR HEMATOLOGY/[place] [address] 02/24/2022 Office Visit Wound Care 02/24/2022 Appointment Hematology and Oncology 02/26/2022 Office Visit Neurology Leni Bustamante MD [facility] ER DR NEUROLOGY DEPT. [place], [place] [address] (Wo rk) documented as of this encounter Visit Diagnoses Diagnosis S/P allogeneic bone marrow transplant Bone marrow replaced by transplant Acute myeloid leukemia in remission documented in this encounter Administered Medications Inactive Administered Medications - up to 3 most recent administrations Medication Order MAR Action Action Date Dose Rate Site heparin (pf) (porcine) (100 Given 11/25/2021 3:04 PM EDT 500 Uni ts units/mL) flush 5 mL syringe 500 Units 500 Units (5 mL), Intravenous, ONCE PRN, 1 dose, Starting on Thu11/25/21 at 1449, Until Thu11/25/21 at 1504, Line Care, Dormant flush every 4 weeks, Routine magnesium sulfate 2 g in sterile water New Bag 11/25/2021 1:00 PM EDT 2 g 25 mL/hr 50 mL infusion 2 g, Intravenous, ONCE, 1 dose, On Thu11/25/21 at 1315, Administer over 120 Minutes sodium chloride 0.9 % (flush) (BD PosiFlush Given 11/25/2021 3:04 PM EDT 20 mLs Normal Saline 0.9) flush 20 mL 20 mL, Intravenous, EVERY 1 MIN PRN, Starting on Thu11/25/21 at 1449, Until Thu11/26/21 at 0433, Lab Draws, Implanted Port-IV flush after blood draws, Routine sodium chloride 0.9% infusion New Bag 11/25/2021 1:00 PM EDT 500 mL/hr 500 mL/hr 500 mL/hr, Intravenous, ONCE, 1 dose, On Thu11/25/21 at 1245 documented in this encounter Additional Health Concerns Infection Onset Date Last Indicated Resolved Time History of C. difficileComment: C. diffiicile 08/20/2021 testing positive 05/25/21. documented as of this encounter Care Teams Radiologic Technology Teacher Relationship Specialty Start Date End Date Beatriz Maurice PA PCP - General Family Medicine 05/06/21 [address] [place] [address] documented as of this encounter
--- OUTSIDE RECORDS SUMMARY | 2022-02-14 11:10 | XMS_ITS | Encounter Summary ---
:1960 Author Organization [facility] [place] [address] Care Team Providers Name Role Phone Beatriz Maurice Primary Care Provider Reason for Visit Reason Onset Date Comments Other 11/26/2021 Apply for [place] Medicai d. Encounter Details Date Type Department Care Team Description 11/26/2021 Telephone Hematology and Nichelle Barnard, Jerri ( Apply for [place] Oncology at [facility] Medicaid[facility] [place] [address] Social History Tobacco Use Types Packs/Day [...] this encounter Miscellaneous Notes Telephone Encounter - Nichelle Barnard MSW - 11/26/2021 12:51 PM EDT Herber's life partner Morales Orlando called [facility] to say that it doesn't look like Herber is going to get FMLA for a 3rd time, so he expects to lose his [facility] health insurance by the end of November (2 1/2 weeks). UPHOLSTERY TECH recommended that when they are at [facility] next Thursday (12/02/21) they stop by [employer], walk in, and get him screened/apply for [place] Medicaid. UPHOLSTERY TECH gave her [employer] phone # ([phone]) and recommended she call them to ask what supporting financial documentation they need to bring with them. SW Intervention: Patient Financial Assistance/Insurance documented in this encounter Plan of Treatment Upcoming Encounters Date Type Specialty Care Team Description 02/18/2022 Infusion Hematology and Oncology 02/21/2022 Infusion Hematology and Oncology 02/24/2022 Appointment Hematology and Oncology 02/24/2022 Office Visit Hematology and Oncology Parviz Modi MD [facility] DR HEMATOLOGY/[place] [address] Miroslava Pelayo APRN [facility] DR HEMATOLOGY/[place] [address] 02/24/2022 Office Visit Wound Care 02/24/2022 Appointment Hematology and Oncology 02/26/2022 Office Visit Neurology Leni Bustamante MD [facility] DR NEUROLOGY DEPT. [place], [place] [address] (Wo rk) documented as of this encounter Visit Diagnoses Not on filedocumented in this encounter Additional Health Concerns Infection Onset Date Last Indicated Resolved Time History of C. difficileComment: C. diffiicile 08/20/2021 testing positive 05/25/21. documented as of this encounter Care Teams Ditcher Relationship Specialty Start Date End Date Beatriz Maurice PA PCP - General Family Medicine 05/06/21 [address] [place] [address] documented as of this encounter
--- OUTSIDE RECORDS SUMMARY | 2022-02-14 11:10 | XMS_ITS | Encounter Summary ---
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 I met with Herber in 3K infusion on Thursday and provided a BMT Binder for Herber and his SO Morales to record his daily I/O, symptoms, fatigue, oral intake, etc. Also included medication management sheets. Herber and I agreed to a telephone call check in on Wednesdays moving forward until he is more stable. I called Herber and Morales today to review symptoms and symptom management. Herber continues to struggle with oral intake. He is able to drink 34-40oz/day. He tolerates milk shakes well. Morales mixes whole milk and ice cream. Herber does not like the taste of protein powder or shakes ie ensure/boost. We discussed to add variety making yogurt/fruit shakes too. They will work hard to meet the goal of 2L fluid/day and track I/O in the binder. Herber has been experiencing nausea during morning medications. The nausea resolves on its own withoutintervention. We discussed strategies to alleviate the nausea. 1) take an antiemeitc ie ondansetron before medications, 2) spread the medications out over two hours - taking the tacrolimus first. Herber continues to experience overwhelming fatigue - we discussed that this is normal especially the first 3 months post transplant. He will continue to move/walk daily. Herber is experiencing upper extremities/generalized body tremors - may be secondary to tacrolimus. Hedenies headache or high blood pressure. He will document level of tremors on his daily sheet and report weekly. A: Herber and Morales both asked appropriate questions and verbalized understanding of the plan. P: [facility] tomorrow for labs and hydration Check in call by Annika on Thursday RTC 12/09 for follow up with Dr. Modi, labs/hydration Weekly check in on Wednesdays by this RN documented in this encounter Plan of Treatment Upcoming Encounters Date Type Specialty Care Team Description 02/18/2022 Infusion Hematology and Oncology 02/21/2022 Infusion Hematology and Oncology 02/24/2022 Appointment Hematology and Oncology 02/24/2022 Office Visit Hematology and Oncology Parviz Modi MD [facility] HEMATOLOGY/[place] [address] Miroslava Pelayo, COMMUNITY HEALTH REPRESENTATIVE [facility] HEMATOLOGY/[place] [address] 02/24/2022 Office Visit Wound Care 02/24/2022 Appointment Hematology and Oncology 02/26/2022 Office Visit Neurology Leni Bustamante MD [facility] NEUROLOGY DEPT. [place], [place] [address] (Wo rk) documented as of this encounter Visit Diagnoses Not on filedocumented in this encounter Additional Health Concerns Infection Onset Date Last Indicated Resolved Time History of C. difficileComment: C. diffiicile 08/20/2021 testing positive 05/25/21. documented as of this encounter Care Teams Pond Supervisor Relationship Specialty Start Date End Date Beatriz Maurice PA PCP - General Family Medicine 05/06/21 [address] [place] [address] documented as of this encounter
--- OUTSIDE RECORDS SUMMARY | 2022-02-14 11:10 | XMS_ITS | Encounter Summary ---
:1960 Author Organization [facility] Address [facility] [place] [address] Care Team Providers Name Role Phone Beatriz Maurice Primary Care Provider Encounter Details Date Type Department Care Team Description 12/02/2021 Hospital Encounter Hematology and S/P all ogeneic bone marrow transplant; Oncology at [facility] [place] Hypomagnesemia; [facility] STACIE (acut e kidney injury); Drive H/O Clostridium difficile in [facility]; [place] [address]; [phone] Acute leukemia in remission; Anemia in neopl [...] 20 each 11 2 (10/box) of [employer] [place] Soft Convex One-piece Pouch #[id number] per month. Ostomy Supplies Misc Dispense 2 boxes 40 each 11 2 (20/box) of [employer] Elastic Barrier strips #[id number] per month. Ostomy Supplies Misc Dispense 1 [...] mutation Colostomy Belt (Ostomy Dispense 1 [employer] [place] 1 each 11 0 08/20/2021 12/13/2021 Belt Medium) [facility] Belt #[id number] per month. documented as of this encounter Progress Notes Christine Patterson RN - 12/02/2021 9:45 AM EDT Patient Name: Herber Iverson Jr. Patient Age: 61 y.o. Birthdate: 1960 Admit date: 12/02/2021 Attending Physician: No att. providers found Access visit. See MAR and/or flowsheet. documented in this encounter Plan of Treatment Upcoming Encounters Date Type Specialty Care Team Description 02/18/2022 Infusion Hematology and Oncology 02/21/2022 Infusion Hematology and Oncology 02/24/2022 Appointment Hematology and Oncology 02/24/2022 Office Visit Hematology and Oncology Parviz Modi MD [facility] DR HEMATOLOGY/[place] [address] Miroslava Pelayo APRN [facility] DR HEMATOLOGY/[place] [address] 02/24/2022 Office Visit Wound Care 02/24/2022 Appointment Hematology and Oncology 02/26/2022 Office Visit Neurology Leni Bustamante MD [facility] ER DR NEUROLOGY DEPT. [place], [place] [address] (Wo rk) documented as of this encounter Procedures Procedure Name Priority Date/Time Associated Comments Diagnosis HEMOGRAM STAT 12/02/2021 9:45 AM Hypomagnesemi a Results for this EDT STACIE (acute kidney procedure are in injury) the results H/O Clostridium section. 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 in neoplastic disea se Weakness acquired in ICU S/P allogeneic bone marrow transplan t Dehydration DIFFERENTIAL, STAT 12/02/2021 9:45 AM Hypomagnesemi a Results for this AUTOMATED EDT STACIE (acute kidney procedure are in injury) the results H/O Clostridium section. 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 in neoplastic disea se Weakness acquired in ICU S/P allogeneic bone marrow transplan t Dehydration HC FK-506 (TACROLIMUS) STAT 12/02/2021 9:45 AM Hypoma gnesemia Results for this EDT STACIE (acute kidney procedure are in injury) the results H/O Clostridium section. 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 in neoplastic disea se Weakness acquired in ICU S/P allogeneic bone marrow transplan t Dehydration HC CMV QUANT Routine 12/02/2021 9:45 AM S/P allogeneic bone Re sults for this EDT marrow transplant procedure are in the results section. HC CBC,PLT & AUTO DIFF STAT 12/02/2021 9:45 AM Hypoma gnesemia EDT STACIE (acute kidney injury) H/O Clostridium 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 in neoplastic disea se Weakness acquired in ICU S/P allogeneic bone marrow transplan t Dehydration HC MAGNESIUM, SERUM Routine 12/02/2021 9:45 AM Hypomagne semia Results for this EDT STACIE (acute kidney procedure are in injury) the results H/O Clostridium section. 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 in neoplastic disea se Weakness acquired in ICU S/P allogeneic bone marrow transplan t Dehydration HC IGG, SERUM Routine 12/02/2021 9:45 AM S/P allogeneic bone R esults for this EDT marrow transplant procedure are in the results section. COMPREHENSIVE Routine 12/02/2021 9:45 AM Hypomagnesemi a Results for this METABOLIC PANEL EDT STACIE (acute kidney procedu re are in (NON-FASTING) injury) the results H/O Clostridium section. 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 in neoplastic disea se Weakness acquired in ICU S/P allogeneic bone marrow transplan t Dehydration documented in this encounter Results (ABNORMAL) Differential, Automated (12/02/2021 9:45 AM EDT) [facility] Method Time Signature Neutrophils % 70.6 % [facility] Neutr Abs (ANC) 6.11 (H) 1.70 - [facility] 6.10 [facility] x10(3)/[facility] L LABORATORY Lymphocytes % 8.2 % [facility] Lymphocytes Abs 0.7 (L) 0.9 - 3.2 [facility] x10(3)/[facility] LABORATORY Monocytes % 10.1 % [facility] Monocyte Abs 0.9 0.3 - 0.9 [facility] x10(3)/[facility] LABORATORY Eosinophils % 9.1 % [facility] Eosinophils Abs 0.8 (H) 0.0 - 0.4 [facility] x10(3)/[facility] LABORATORY Basophils % 0.8 % [facility] Basophils Abs 0.1 0.0 - 0.1 [facility] x10(3)/[facility] LABORATORY Immature Gran % 1.20 % [facility] Comment: Immature granulocytes(IG's)percentage an d absolute count will include metamyelocytes, myelocytes, and promyelo cytes. Blood smears from CBCs yielding IG's will be scanned manually for concor dance. If this scan disagrees with the automated IG or if promyelocytes are not ed, a manual differential will be performed. Zara Gran Abs 0.10 (H) 0.00 - 0.04 x10(3)/[facility] LABORATORY Specimen Anatomical Collection Method Collection Time Receive d Time (Source) Location / / Volume Laterality Blood 12/02/2021 9:45 AM EDT 10:00 AM EDT Resulting Agency Comment Spec In Lab Parviz Modi MD HEMATOLOGY ORDERABLES Performing Organization Address City/State/[place] [address] (ABNORMAL) Hemogram (12/02/2021 9:45 AM EDT) [facility] gist Method Time Signature WBC 8.6 4.0 - 9.5 [facility] x10(3)/[facility] LABORATORY RBC 2.53 (L) 4.58 - [facility] 5.54 [facility] x10(6)/[facility] LABORATORY Hemoglobin 8.1 (L) 13.7 - [facility] 16.5 g/dL [facility] Hematocrit 24.2 (L) 40.5 - [facility] 48.5 % [facility] MCV 95.7 (H) 82.9 [facility] 93.1 fL [facility] MCH 32.0 27.5 - [facility] 32.1 pg [facility] MCHC 33.5 32.0 - [facility] 35.7 g/dL [facility] Platelets 51 (L) 145 - 357 [facility] x10(3)/[facility] LABORATORY RDWSD 69.6 (H) 36.0 - [facility] 45.0 [facility] LABORATORY RDWCV 20.4 (H) 11.4 - [facility] 13.8 % [facility] MPV 11.4 7.6 - 12.9 [facility] LABORATORY nRBC % Auto 0.3 % [facility] nRBC Abs Auto 0.030 (H) 0.000 - [facility] 0.000 [facility] x10(3)/[facility] LABORATORY Specimen Anatomical Collection Method Collection Time Receive d Time (Source) Location / / Volume Laterality Blood 12/02/2021 9:45 AM 2 EDT 10:00 AM EDT Resulting Agency Comment Spec In Lab Parviz Modi MD HEMATOLOGY ORDERABLES Performing Organization Address City/[facility]/ZIP Code Phon e Number [address] Tacrolimus level (12/02/2021 9:45 AM EDT) athologist Signature Tacrolimus Lvl 7.9 ng/mL [facility] Comment: Trough [...] Modi MD CHEMISTRY ORDERABLES Performing Organization Address City/[facility]/ZIP Code Phon e Number [address] Magnesium (12/02/2021 9:45 AM EDT) P athologist Signature Magnesium 0.78 0.69 - 1.07 [facility] mmol/L [facility] Specimen Anatomical Collection Method Collection Time Receive d Time (Source) Location / / Volume Laterality Blood 12/02/2021 9:45 AM 2 EDT 10:00 AM EDT Resulting Agency Comment Spec In Lab Parviz Modi MD CHEMISTRY ORDERABLES Performing Organization Address City/State/[place] [address] (ABNORMAL) Comprehensive metabolic panel (non-fasting) (12/02/2021 9:45 AM EDT) athologist Signature Glucose Lvl 122 65 - 199 [facility] mg/dL [facility] Comment: Diabetes: >=200 mg/dL plus symp toms BUN 23 (H) 10 - 20 mg/dL [facility] Creatinine 2.49 (H) 0.80 - 1.50 mg/dL [facility] Sodium 130 (L) 135 - 145 mmol/L [facility] Potassium 4.7 3.5 - 5.0 mmol/L [facility] Comment: Please note: ??Patients with WBC >100,00 0 may have falsely elevated Potassium levels. ??For accurate Potassium quantif ication in these patients send serum separator tube (gold top) for subsequent determinations. ??Contact the Clinical Chemistry Laboratory if there are any qu estions. Chloride 100 98 - 107 mmol/L [facility] CO2 19 (L) 22 - 31 mmol/L [facility] Anion Gap 11 5 - 15 mmol/L [facility] Calcium 9.4 8.5 - 10.5 mg/dL [facility] Total Protein 6.9 6.1 - 8.0 g/dL [facility] Albumin 3.6 3.2 - 5.2 g/dL [facility] AST 33 0 - 39 unit/L [facility] ALT 29 0 - 55 unit/L [facility] Alk Phos 414 (H) 40 - 130 unit/L [facility] Total Bilirubin 0.6 0.2 - 1.3 mg/dL [facility] Estimated GFR 27 (L) >=60 mL/min/1.73 m?? [facility] Comment: This patient? s [...] Address City/State/ZIP Code Phon e Number [address] IgG (12/02/2021 9:45 AM EDT) P athologist Signature IgG 1,215 700 - 1,600 [facility] mg/dL [facility] Comment: Pediatric Reference Intervals obtained f rom the Caliper Reference Interval project. http://[email or web address]-[email or web address]/caliperp roject/index.html Specimen Anatomical Collection Method Collection Time Receive d Time (Source) Location / / Volume Laterality Blood 12/02/2021 9:45 AM 2 EDT 10:00 AM EDT Resulting Agency Comment Spec In Lab Parviz Modi MD IMMUNOLOGY ORDERABLES Performing Organization Address City/State/[place] [address] CMV PCR, Quantitative (12/02/2021 9:45 AM EDT) Patholo gist Method Time Signature CMV Quant Not Detected Not Detected JIA (Numeric) IU/mL [facility] Comment: Indication for Study: Monitoring CMV [...] Volume Laterality Blood 12/02/2021 9:45 AM 2 7:29 EDT AM EDT Resulting Agency Comment Spec In Lab Parviz Modi MD IMMUNOLOGY ORDERABLES Performing Organization Address City/State/[place] [address] documented in this encounter [...] sodium chloride 0.9 % (flush) (BD Given 12/02/2021 9:44 AM EDT 2 0 mLs PosiFlush Normal Saline 0.9) flush 10-20 mL 10-20 mL, Intravenous, EVERY 1 MIN PRN, Starting on 12/02/21 at 0929, Until Thu12/03/21 at 0433, Professor Of Spanish, Routine documented in this encounter Additional Health Concerns Infection Onset Date Last Indicated Resolved Time History of C. difficileComment: C. diffiicile 08/20/2021 testing positive 05/25/21. documented as of this encounter Care Teams Bench Worker Helper Relationship Specialty Start Date End Date Beatriz Maurice PA PCP - General Family Medicine 05/06/21 [address] [place] [address] documented as of this encounter
--- OUTSIDE RECORDS SUMMARY | 2022-02-14 11:13 | XMS_ITS | Encounter Summary ---
:1960 Author Organization [place] [address] Care Team Providers Name Role Phone Beatriz Maurice Primary Care Provider Encounter Details Date Type Department Care Team Description 11/14/2021 Notes Only Hematology and Oncology at [place] [address] Social History Tobacco Use Types Packs/Day [...] encounter Progress Notes Nichelle Barnard MSW - 11/14/2021 12:27 PM EDT Referral by Annika Geller RN for Dr. Goodrich having reported that patient was having a lot of anxiety/worries about losing his job. Herber had hoped to go back to work soon but Annika reiterated to him that this may not be possible for as much as one year post-Allo SCT. He has questions about S/T disabilityand L/T disability and has not initiated FMLA. Work Disability: [facility] spoke with Morales, his S/O. She reported that his Leave of Absence didn't get renewed so she faxed that paperwork to [facility] [employer] today. She said now Herber shouldn't lose his job. Herber is currently transitioning from S/T disability to L/T disability. Morales thinks he was denied L/T disability b/c his [place] paperwork wasn't in. 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 NARCOTICS AGENT encouraged Morales to call Herber's HR office today, ask to initiate FMLA, and after filling outthe paperwork it will likely need to go to Claudia López at [facility]. Morales has been doing most of Herber'spaperwork for him. SSDI: NARCOTICS AGENT then visited Herber inpatient, told him the above, and gave him duplicate copies of the handouts she gave him 5 months ago: Triage Cancer's Quick Guide to SSDI & SSI, this commercial insurance underwriter's typed notes about SSDI, an FMLA Fact Sheet, and this commercial insurance underwriter's business card if they need help applying for SSDI. NARCOTICS AGENT told Herber that if found eligible for SSDI, he would still not receive a first check until 5 months after date of application. He has been receiving $2,313/month in S/T disability benefits but L/T disability is usually less. The new amount (2021) that an individual can earn without losing their SSDI is $2,260/month. [place]: With the exception of [employer] ([place] we have pretty much applied for all the cancer grants we know of since Fall 2020: REANNA $800 for car insurance [place] $350 grocery card [employer] $500 [place] grocery card [employer] $6,609 for 7-day supply of [place] LLS Copay Assistance Program $10,000 for AML Food Pantry: NARCOTICS AGENT offered [facility] Fresh Food Pantry as Herber has benefited from help with the cost of groceries in the past. He accepted and said to coordinate this with Morales as she will be picking him up upon d/c circa 11/18/21. SW Intervention: Food insecurity resources Financial resources Other: FMLA and SSDI documented in this encounter Plan of Treatment Upcoming Encounters Date Type Specialty Care Team Description 02/18/2022 Infusion Hematology and Oncology 02/21/2022 Infusion Hematology and Oncology 02/24/2022 Appointment Hematology and Oncology 02/24/2022 Office Visit Hematology and Oncology Parviz Modi MD [facility] DR HEMATOLOGY/[place] [address] Miroslava Pelayo APRN [facility] DR HEMATOLOGY/[place] [address] 02/24/2022 Office Visit Wound Care 02/24/2022 Appointment Hematology and Oncology 02/26/2022 Office Visit Neurology Leni Bustamante MD [facility] DR NEUROLOGY DEPT. [place], [place] [address] (Wo rk) documented as of this encounter Visit Diagnoses Not on filedocumented in this encounter Additional Health Concerns Infection Onset Date Last Indicated Resolved Time History of C. difficileComment: C. diffiicile 08/20/2021 testing positive 05/25/21. documented as of this encounter Care Teams Supervisory Clerk Relationship Specialty Start Date End Date Beatriz Maurice PA PCP - General Family Medicine 05/06/21 [address] [place] [address] documented as of this encounter
--- OUTSIDE RECORDS SUMMARY | 2022-02-14 11:13 | XMS_ITS | Encounter Summary ---
:1960 Author Organization [facility] Address [facility] [place] [address] Care Team Providers Name Role Phone AjithBeatriz patricia Primary Care Provider Encounter Details Date Type Department Care Team Description 10/29/2021 Orders Only Hematology and Oncology at [place] Dos Santos MD [facility] [place] [address] [place] [address] [phone] (Wo rk) Social History Tobacco Use Types [...] Parviz Modi MD [facility] DR HEMATOLOGY/[place] [address] Miroslava Pelayo APRN [facility] HEMATOLOGY/[place] [address] 02/24/2022 Office Visit Wound Care 02/24/2022 Appointment Hematology and Oncology 02/26/2022 Office Visit Neurology Leni Bustamante MD [facility] NEUROLOGY DEPT. [place], [place] [address] (Wo rk) documented as of this encounter Visit Diagnoses Not on filedocumented in this encounter Additional Health Concerns Infection Onset Date Last Indicated Resolved Time History of C. difficileComment: C. diffiicile 08/20/2021 testing positive 05/25/21. documented as of this encounter Care Teams Non Categorical Preschool Teacher Relationship Specialty Start Date End Date Beatriz Maurice PA PCP - General Family Medicine 05/06/21 [address] [place] [address] documented as of this encounter
--- OUTSIDE RECORDS SUMMARY | 2022-02-14 11:13 | XMS_ITS | Encounter Summary ---
:1960 Author Organization [facility] [place] [address] Care Team Providers Name Role Phone Beatriz Maurice Primary Care Provider Reason for Visit Auth/Cert Specialty Diagnoses / Procedures Referred By Contact Refer red To Contact Diagnoses Acute leukemia of unspecified cell type not having achieved remission Procedures TC CHEMO ADMIN, IV INFUSION, UP TO 1HR, SINGLE/INITIAL DRUG CHEMO ADMIN, IV INFUSION, INITIATION OF PROLONGED CHEMO(8+ HOURS), REQUI TC CHEMO ADMIN, IV INFUSION, EA ADDL SEQ INF, UP TO 1 HR INPATIENT CHEMO THERAPY Referral ID Status Reason Start Date Expiration Date Visits Requ ested Visits Authorized [id number] 1 1 Encounter Details Date Type Department Care Team Description 10/15/2021 Office Visit Hematology and Annika Geller Stem cell t ransplant Oncology at [facility] [place] J, [place] [phone] Social History Tobacco Use Types Packs/Day [...] documented as of this encounter Progress Notes Annika Geller, RN - 10/15/2021 9:00 AM EST BMT Nurse Navigator: Transplant Admit Note PATIENT: Herber Iverson Jr. DATE: 10/15/2021 DIAGNOSIS: AML REASON FOR VISIT: Pre-admission Nursing Check Blood Type: Donor O negative and Recipient O positive, ABO match CMV Status: Donor negative and Recipient negative Objective: Herber is a 61 yo man with a diagnosis of AML. This RN along with Dr. Modi met with pt for pre-admitcheck. Plan is to proceed with 05/26 MUD allogeneic stem cell transplant. Follow up pretransplant studies are complete. COVID 19 testing has been completed on 10/12/21. Results: negative. Pt. has been instructed to avoid acetaminophen/acetaminophen products prior to admission - this has been confirmed today. Pt. has taken first dose of phenytoin 400mg at 9am this morning. Next dose is due at 3pm phenytoin 300mg and then again at 9pm. We discussed an overview of MUD allogeneic stem cell transplant with Flu/Bu/ATG/Mtx, inpatient course and follow-up care after transplant. Outlined treatment plan on a calendar at previous visits. Caregiver - we discussed caregiver support during and after transplant. Herber identified his SO, Morales, as primary caregiver. We discussed financial coverage for transplant. Herber has [employer] insurance. There is authorization/contract on file. Psych/Social eval completed by Nichelle RODRIGUEZ. Employment: disabled. Exercise: We discussed the physical performance requirements prior to transplant ie the ability to walk 1 mile per day or equivalent exercise. Herber has been able to exercise daily. Environment: Herber and Morales live with Morales's mom in a home with two cats. Herber has been self-isolating for weeks. Morales works at a local [email or web address] and is unable to self isolate. Food safety - Herber has been provided the food safety guidelines (pink pamphlet). We briefly reviewedthe dietary modifications pre/post transplant. He has met with Signal Engineer on 09/17/10. He would benefitfrom a Nutrition consult while hospitalized as an In-patient. Pets: 2 cates. Reviewed guidelines for pet care upon discharge. Plan/Instructions: Physical activity plan: Herber understands the importance of walking daily while inpatient. Timeline for restaging - complete Timeline for pre-transplant workup - complete Dental exam - complete Screening colonoscopy - Herber had a subtotal colectomy during his initial hospitalization due to toxic abdias colon secondary to Cdiff. He continues on oral vancomycin. He would greatly benefit from a referral to the ostomy nurses upon admission. Signal Engineer for Food Safety Guidelines - completed. Psych/Social eval - done Financial/Insurance - confirmed Other Teaching for Nursing handoff: Herber had a complicated hospital course during diagnosis and induction/re- induction chemotherapy. 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 He presents today feeling well and states he is ready/prepared for transplant. Reviewed what is expected during transplant hospitalization. We answered all his questions and reviewed potential side effects of chemotherapy including hypersensitivity reaction to ATG, mucositis and possible need for pain medications, inability to eat secondary to mucositis, n/v/d, and decreased appe tite. Herber has ongoing vision changes since relapse in July. He is seeing ophthomology on 10/14/21 (seenote in [facility]). Herber is on flecanide for Afib. He has been cleared by cardiology to proceed to transplant. We have asked that the cardiac stress test be rescheduled to December. Herber was diagnosed with bilateral PE's on 07/11/21. Lovenox 100mg sq daily was initiated. Caregiver plan/Discharge Knowledge: Morales is Herber's primary caregiver. She is willing and able to provide support needed upon discharge.Herber has a good friend Colby who is willing to help out if needed. Discharge education has been provided to both Herber and Morales. Plan for cleaning home: in process Report given to Pati Gilbert RN, on . Belongings have been brought to room 121 by Annika Geller RN documented in this encounter Plan of Treatment Upcoming Encounters Date Type Specialty Care Team Description 02/18/2022 Infusion Hematology and Oncology 02/21/2022 Infusion Hematology and Oncology 02/24/2022 Appointment Hematology and Oncology 02/24/2022 Office Visit Hematology and Oncology Parviz Modi MD [facility] HEMATOLOGY/[place] [address] Miroslava Pelayo APRN [facility] DR HEMATOLOGY/[place] [address] 02/24/2022 Office Visit Wound Care 02/24/2022 Appointment Hematology and Oncology 02/26/2022 Office Visit Neurology Leni Bustamante MD [facility] NEUROLOGY DEPT. [place], [place] [address] (Wo rk) documented as of this encounter Visit Diagnoses Diagnosis Stem cell transplant candidate documented in this encounter Additional Health Concerns Infection Onset Date Last Indicated Resolved Time History of C. difficileComment: C. diffiicile 08/20/2021 testing positive 05/25/21. documented as of this encounter Care Teams Moss Bleacher Relationship Specialty Start Date End Date Beatriz Maurice PA PCP - General Family Medicine 05/06/21 [address] [place] [address] documented as of this encounter
--- OUTSIDE RECORDS SUMMARY | 2022-02-14 11:13 | XMS_ITS | Encounter Summary ---
:1960 Author Organization [facility] Address [address] [place] [address] Care Team Providers Name Role Phone Beatriz [...] Expiration Date Visits Requ ested Visits Authorized [id number] 1 1 Encounter Details Date Type Department Care Team Description 10/15/2021 Office Visit Hematology and Parviz Modi Acute myeloid leukemia in remission (Primary Dx); Oncology at [facility] MD Mars Stem cell transplant candidate; [facility] ENTER H/O Clostridium difficile infection; Drive HEMATOLOGY/ONCOLOGY S/P partial resection of col on [place], [place] DEPT. [address] [place] [address] [phone] (Wo rk) Social History Tobacco Use Types [...] Sign Reading Time Taken Comments Blood Pressure 115/80 10/15/2021 8:46 AM EST Pulse 80 10/15/2021 8:46 AM EST Temperature 36.5 ??C (97.7 ??F) 10/15/2021 8:46 AM EST Respiratory Rate 18 10/15/2021 8:46 AM EST Oxygen Saturation 98% 10/15/2021 8:46 AM EST Inhaled Oxygen Concentration - - Weight 107.8 kg (237 lb 9.6 oz) 10/15/2021 8:46 AM EST Height 178 cm (5' 10.08) 10/15/2021 8:46 AM EST Body Mass Index 34.02 10/15/2021 8:46 AM EST documented in this encounter Progress Notes Parviz Modi MD - 10/15/2021 9:00 AM EST HEMATOLOGY/BMT CONSULTATION VISIT NOTE CHIEF COMPLAINT: Herber Iverson Jr. is a 61 y.o. male originally referred by Dr. Beatriz Maurice for evaluation of leukemia. He is seen prior to planned admission for MUD HSCT. Data Review (From Recent Hospital discharge summary and the EMR) Admitted to [facility] 04/29/21 for leukocytosus. Discharged 04/30/21. 04/30/21 CBC - 40.7/8.09/05 ANC - 3,210 [...] - FELY on LP/IT chemo #6 07/31/21 Venetoclax plus gilteritinib reinduction started LP - FELY - plan to change to weekly LP and IT chemo. 08/05/21 LP - FELY 08/06/21 BM Bx - 90% cellular with increased immature precursors suggestive of persistent disease but low blast count. NPM1 gene Mutation analysis: Positive for NPM1 mutation. [place] [address]/10,000 ABL1 copies (135.80%.) 08/08/21 Discharged after reinduction with gilteritinib and venetoclax and initial clearance of HAND ROLLER leukemia. 08/12/21 LP - FELY 08/26/21 LP - FELY 09/05/20 LP - FELY 09/09/20 LP - FELY 09/12/20 BM Bx - Normocellular marrow (~50%) showing no increase in blasts, left-shifted erythroid hyperplasia and dysplasia, a relative granulocyte hypoplasia, and atypical megakaryocytes. NPM1 gene Mutation analysis - 195/10,000 copies = 1.95% (98.6% decrease). 09/27/21 LP - FELY 10/04/21 Pre-Transplant Evaluation Indication for Transplant - Flt3 POS, HAND ROLLER POS, relapsed AML now in remission. Cardiac Echo - LVEF 55-60%, NRWMAs (10/02/21) EKG - NSR, no abnormalities (09/24/21) CXR - other than possibe slight atelectasis, no abnormality (10/04/21) BM BX - FELY (09/12/21) LP - FELY (09/27/21) BM CG - 46XY (20) PFTs - FVC 105%, FeV1 113%, DLCO 104% (Dinikara correction, Hb 9.4) Colonoscopy - deferred given large bowel resection Creatinine - 1.18, estimated GFR - 66 (09/27/21). 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 dates the onset of his illness to earlier this summer. He has felt more tired than usual but attributed it to the humidity. About 3 weeks ago his fatigue was so bad that he went to a clinic in [facility]. He was evaluated for a UTI that was negative. 1 week ago today he saw his PCPwho ended up gatting a CBC showing abnormal counts and he was admitted to [facility]. Other than fatigue has had no fevers, chills or drenching sweats. Has lost a few lbs - <10. Appetite has been down recently. No bleeding or bruising. Was very actived when younger - played a lot of sports into his 40's. 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 He is now at day approximately +76 (10/15/21) of venetoclax plus gilteritinib therapy (day 1 ~07/31/2021) - both have now been held prior to planned admission for HSCT. His most recent LP was 09/27 and BM Bx 09/12 and both showed no evidence of disease. Recent NPM1 MRD determinations shows 99% reduction - now at 1.95%. Herber is seen today to for a final check prior to planned admissionfor his MUD HSCT. As above, he has completed his pre-transplant evaluation and there are no contriandications to proceeding as planned. Since last seen Herber reports that hew feels entirely well and ready for his transplant. Recent tylenol use? 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 Social - has a girlfriend and his boss Al as support. FH F - at ~70 of lung cancer - wsas a heavy smoker M - alive at 78 - no known health issues Siblings - No full siblings. 1/2 sister of AIDS, 1/2 brother is 51 - health unknown REVIEW OF SYSTEMS Constitutional --Energy level: improving --Pain: Paresthesias in lower extremities unchanged --Fevers/chills/sweats: No --Unexpected weight loss or gain: as above Eyes - No change in vision Ears, nose, throat - No change hearing, no oral or throat pain or thrush Cardiovascular --SOB: No --PICHARDO: 1 flight PICHARDO --chest pain: No Respiratory --Cough: No --SOB, [...] Outpatient Medications Medication Instructions ??? acyclovir (ZOVIRAX) 400 mg, Oral, 2 TIMES DAILY ??? Colostomy Belt (Ostomy Belt Medium) [facility] Dispense 1 Sensura Flako Belt #4237 per month. ??? enoxaparin (LOVENOX) 100 mg, Subcutaneous, DAILY ??? famotidine (PEPCID) 40 mg, Oral, DAILY ??? flecainide (TAMBOCOR) 50 mg, Oral, 2 TIMES DAILY ??? gilteritinib (XOSPATA) 120 mg, Oral, DAILY, Call clinic before starting medication. ??? levoFLOXacin (LEVAQUIN) 750 mg, Oral, DAILY ??? lidocaine-prilocaine (EMLA) Cream Apply to [facility] approximately 30 minutes prior to access. ??? loperamide (IMODIUM A-D) 2 mg, Oral, 3 TIMES DAILY ??? metoprolol succinate XL (TOPROL-XL) 50 mg, Oral, DAILY ??? Ostomy Supplies Misc Dispense 2 boxes ( 10/box) of [employer] Barrier rings #7805 per month. ??? Ostomy Supplies Misc Dispense 2 boxes (10/box) of Sensura Flako Soft Convex One-piece Pouch #[id number] month. ??? Ostomy Supplies Misc Dispense 2 boxes (20/box) of Brava Elastic Barrier strips #[id number] per month. ??? Ostomy Supplies Misc Dispense 1 box (50/box) of a generic no-sting skin barrier wipe per month. ??? Ostomy Supplies Powder Dispense 1 bottle of Adapt stoma powder #7906 every other month. ??? phenytoin (Dilantin) 50 mg Tablet, Chewable Take 8 tablets(400 mg) at 9:00 AM and 6 tablets (300mg) at 3:00 PM on October 15, 2021 ??? sulfamethoxazole-trimethoprim DS (Bactrim DS) 800-160 mg Tablet 1 tablet, Oral, THREE TIMES WEEKLY ??? tamsulosin (FLOMAX) 0.4 mg, Oral, DAILY ??? vancomycin (VANCOCIN) 125 mg, Oral, 2 TIMES DAILY ??? venetoclax (VENCLEXTA) 100 mg, Oral, DAILY, Take with food and a large glass of water. Call clinic before starting medication. ALLERGIES/ADR Allergies Allergen Reactions ??? Other [Unclassified Drug] Other (See Comments) Artificial Sweetners-lightheadedness, dizziness PHYSICAL EXAM VITAL SIGNS: There were no vitals taken for this visit. GENERAL: Herber Iverson Jr. is a well-appearing 61 y.o. year old male in no acute distress. ENT: Sinuses non-tender. Oropharynx clear. No masses. No thrush. ENDOCRINE: No thyromegaly palpated. CARDIOVASCULAR: Heart with regular rate and rhythm without S3,S4 or murmurs. No cyanosis or peripheral edema. PULMONARY: Lungs are clear to auscultation without rales, rhonchi or wheezing. GASTROINTESTINAL: Abdomen soft and non-tender without palpable masses or hepatosplenomegaly. MUSCULOSKELETAL: Neck supple with full ROM. No spine or CVA tenderness. SKIN: No rashes, bruises or petechiae. LYMPH: No abnormal lymphadenopathy. NEUROLOGICAL: Alert and oriented to person, place and time. LABORATORY No results found for this or any previous visit (from the past 72 hour(s)). RADIOLOGY - None ASSESSMENT & PLANS 1. Flt3+ AML --Herber initially achieved CR with 7&3 + midostauren but subsequently relapsed but has now re-achied remission with Zospata, venetoclax and multiple rounds ot IT chemotherapy. --Pre-transplant BM Bx and LP show FELY. --The plan is to now admit Herber for MUD allogeneic stem cell transplant. 2. Allo HSCT --Because Herber is POS for Flt3 mutation, he is at high risk for relapse and has an overall poor prognosis. Current plan is to get him to allo H SCT. No apparent contraindications. --Donor search has produced multiple acceptable donors. We have selected a 10/10 HLA, ABO and CMV status matched donor. 3. S/P Colectomy --Herber's colostomy has been functioning well. 4. Double vision - occasional, mild. Not sure of cause. Was seen by Optho - no concerns. Sx are resolving and are now minimal 5. Counseling --Today, we again reviewed what to expect during Herber's transplant admission. We reviewed and signedthe informed consenting documents at his last visit. At the end of our discussion, Herber said that all of his questions had been addressed. 6. Summary of Plans --Has achieved in FELY on current regimen. Venetoclax and Xospata have been held since ThursdayOct 08. --Will consider Xospata maintenance after HSCT. --Primary allogeneic stem cell donor approved and collected. Cells in transit as of this am. Scheduled to arrive around mid-day today. --Taking dilantin as prescribed. Has not had recent tylenol. --Continue lovenox at 100 mg dose until plts approximately <40 then can switch to VOD prophylactic dose --Note that Herber has h/o C. Dif colitis and colostomy s/p bowel resection. --Admission to Dr. Goodrich's service. TOTAL TIME OF VISIT: 30 minutes, including record review, the udwy-nq-ltnx encounter, ordering and review of lab results, writing this note and communicating results and recommendations to the patient and his provider. Parviz Modi MD Section of Hematology [facility] documented in this encounter Miscellaneous Notes Addendum Note - Parviz Modi MD - 10/15/2021 9:00 AM EST Addended by: PARVIZ MODI on: 10/15/2021 02:43 PM Modules accepted: Orders documented in this encounter Plan of Treatment Upcoming Encounters Date Type Specialty Care Team Description 02/18/2022 Infusion Hematology and Oncology 02/21/2022 Infusion Hematology and Oncology 02/24/2022 Appointment Hematology and Oncology 02/24/2022 Office Visit Hematology and Oncology Parviz Modi MD [facility] DR HEMATOLOGY/[place] [address] Miroslava Pelayo APRN [facility] [address] HEMATOLOGY/[place] [address] 02/24/2022 Office Visit Wound Care 02/24/2022 Appointment Hematology and Oncology 02/26/2022 Office Visit Neurology Leni Bustamante MD [facility] NEUROLOGY DEPT. [place], [place] [address] (Wo rk) documented as of this encounter Visit Diagnoses Diagnosis Acute myeloid leukemia in remission - Pr imary Stem cell transplant candidate H/O Clostridium difficile infection Personal history of other infectious and parasitic disease S/P partial resection of colon Other postprocedural status documented in this encounter Additional Health Concerns Infection Onset Date Last Indicated Resolved Time History of C. difficileComment: C. diffiicile 08/20/2021 testing positive 05/25/21. documented as of this encounter Care Teams Pawn Shop Keeper Relationship Specialty Start Date End Date Beatriz Maurice PA PCP - General Family Medicine 05/06/21 [address] [place] [address] documented as of this encounter
--- OUTSIDE RECORDS SUMMARY | 2022-02-14 11:13 | XMS_ITS | Encounter Summary ---
:1960 Author Organization [facility] [place] [address] Care Team Providers Name Role Phone Beatriz Maurice Primary Care Provider Encounter Details Date Type Department Care Team Description 10/23/2021 Orders Only Hematology and Parviz Modi S/P al logeneic bone Oncology at [facility] HMD marrow transplant [facility] [place] HEMATOLOGY/ONCOLOGY [place], [place] DEPT. [address] [place] [address] [phone] (Wo rk) Social History Tobacco Use Types [...] MD [facility] DR HEMATOLOGY/[place] [address] Miroslava Pelayo APRN [facility] HEMATOLOGY/[place] [address] 02/24/2022 Office Visit Wound Care 02/24/2022 Appointment Hematology and Oncology 02/26/2022 Office Visit Neurology Leni Bustamante MD [facility] NEUROLOGY DEPT. [place], [place] [address] (Wo rk) Scheduled Orders Name Type Priority Associated Diagnoses Order S chedule CMV PCR, Quantitative Lab Routine S/P allogeneic bone Once a week for 26 marrow transplant Occurrence s starting 10/24/2021 unti l 10/23/2022, 11 completed EBV PCR Quantitative Lab Routine S/P allogeneic bone Every 2 Weeks for 26 marrow transplant Occurrence s starting 10/24/2021 unti l 10/23/2022, 5 c ompleted IgG Lab Routine S/P allogeneic bone Once a w [place] for 26 marrow transplant Occurrence s starting 10/24/2021 unti l 10/23/2022, 11 completed documented as of this encounter Results (ABNORMAL) IgG (02/10/2022 8:45 AM EDT) athologist Signature IgG 618 (L) 700 - 1,600 [facility] mg/dL [facility] Comment: Pediatric Reference Intervals obtained f rom the Caliper Reference Interval project. http://www.sickkids.ca/caliperp roject/index.html Specimen Anatomical Collection Method Collection Time Receive d Time (Source) Location / / Volume Laterality Blood 02/10/2022 8:45 AM 9:03 EDT AM EDT Resulting Agency Comment Spec In Lab Parviz Modi MD IMMUNOLOGY ORDERABLES Performing Organization Address City/State/[place] [address] CMV PCR, Quantitative (02/10/2022 8:45 AM EDT) [facility] Method Time Signature CMV Quant Not Detected Not Detected JIA (Numeric) IU/mL [facility] Comment: Indication for Study: Monitoring CMV DNA Analysis: The jasmeet CMV test is an in vi tro nucleic acid amplification tests using real-time polymerase chain reactio n (PCR) assay for the quantitative measurement of cytomegalovirus (CMV) DNA in human EDTA plasma. Sample: EDTA plasma Method: jasmeet CMV test used with the 680 0 platform ([employer] Plan) Linear Range: 34.5 - 1.0 x 10^7 [...] Organization Address City/State/[place] [address] (ABNORMAL) IgG (02/03/2022 7:50 AM EDT) athologist Signature IgG 689 (L) 700 - 1,600 [facility] ARASEL[facility] mg/dL [facility] Comment: Pediatric Reference Intervals obtained f rom the Caliper Reference Interval project. http://www.sickkids.ca/caliperp roject/index.html Specimen Anatomical Collection Method Collection Time Receive d Time (Source) Location / / Volume Laterality Blood 02/03/2022 7:50 AM 2 9:05 EDT AM EDT Resulting Agency Comment Spec In Lab Parviz Modi MD IMMUNOLOGY ORDERABLES Performing Organization Address City/State/ZIP Code Phon e Number [address] (ABNORMAL) EBV PCR Quantitative (02/03/2022 7:50 AM EDT) [facility] Method Time Signature EBV DNA BY <35 (A) Undetected JIA MARX PCR IU/mL [facility] Comment: Result in log [...] was performed using the jasmeet EBV test ([employer] with the jasmeet 6800 System. Test Performed by: [facility] [address] [place] [address] Plumber Gasfitter: Randal Aparicio M.D. Ph. D.; CLIA# [id number] Specimen Anatomical Collection Method Collection Time Receive d Time (Source) Location / / Volume Laterality Blood 02/03/2022 7:50 AM 9:44 EDT AM EDT Resulting Agency Comment Spec In Lab Parviz Modi MD IMMUNOLOGY ORDERABLES Performing Organization Address City/State/[place] [address] CMV PCR, Quantitative (02/03/2022 7:50 AM EDT) [facility] Method Time Signature CMV Quant Not Detected Not Detected JIA (Numeric) IU/mL [facility] Comment: Indication for Study: Monitoring CMV [...] Modi MD IMMUNOLOGY ORDERABLES Performing Organization Address City/[facility]/ZIP Code Phon e Number [address] IgG (01/27/2022 7:35 AM EDT) P athologist Signature IgG 748 700 - 1,600 [facility] mg/dL [facility] Comment: Pediatric Reference Intervals obtained f rom the Caliper Reference Interval project. http://[email or web address]/caliperp roject/index.html Specimen Anatomical Collection Method Collection Time Receive d Time (Source) Location / / Volume Laterality Blood 01/27/2022 7:35 AM 2 7:57 EDT AM EDT Resulting Agency Comment Spec In Lab Parviz Modi MD IMMUNOLOGY ORDERABLES Performing Organization Address City/[facility]/ZIP Code Phon e Number [address] CMV PCR, Quantitative (01/27/2022 7:35 AM EDT) Patholo gist Method Time Signature CMV Quant Not Detected Not Detected JIA (Numeric) IU/mL [facility] Comment: Indication for Study: Monitoring CMV [...] Volume Laterality Blood 01/27/2022 7:35 AM 2 8:02 EDT AM EDT Resulting Agency Comment Spec In Lab Parviz Modi MD IMMUNOLOGY ORDERABLES Performing Organization Address City/State/ZIP [place] [address] IgG (01/20/2022 11:45 AM EDT) athologist Signature IgG 718 700 - 1,600 JIA [place] mg/dL [facility] Comment: Pediatric Reference Intervals obtained f rom the Caliper Reference Interval project. http://[email or web address]/[email or web address] roject/index.html Specimen Anatomical Collection Method Collection Time Receive d Time (Source) Location / / Volume Laterality Blood 01/20/2022 11:45 01/20/2022 AM EDT 11:56 AM EDT Resulting Agency Comment Spec In Lab Parviz oMdi MD IMMUNOLOGY ORDERABLES Performing Organization Address City/[facility]/ZIP Code Phon e Number [address] CMV PCR, Quantitative (01/20/2022 11:45 AM EDT) [facility] gist Method Time Signature CMV Quant Not Detected Not Detected JIA (Numeric) IU/mL [facility] Comment: Indication for Study: Monitoring CMV [...] Modi MD IMMUNOLOGY ORDERABLES Performing Organization Address City/[facility]/ZIP Code Phon e Number [address] IgG (01/17/2022 8:50 AM EDT) P athologist Signature IgG 772 700 - 1,600 JIA MARX mg/dL [facility] Comment: Pediatric Reference Intervals obtained f rom the Caliper Reference Interval project. http://www.sickkids.ca/caliperp roject/index.html Specimen Anatomical Collection Method Collection Time Receive d Time (Source) Location / / Volume Laterality Blood 01/17/2022 8:50 AM 2 9:14 EDT AM EDT Resulting Agency Comment Spec In Lab Parviz Modi MD IMMUNOLOGY ORDERABLES Performing Organization Address City/[facility]/[place] [address] (ABNORMAL) EBV PCR Quantitative (01/17/2022 8:50 AM EDT) Patholo gist Method Time Signature EBV DNA BY <35 (A) Undetected JIA CUELLOCOCK PCR IU/mL [facility] Comment: Result in log IU/mL is <1.54. EBV DNA is detected, but level present i s <35 IU/mL (<1.54 log IU/mL). This assay cannot accurately quantify EBV DNA below this level. ADDITIONAL INFORMATIO N The quantification range of this assay i s 35 to 100,000,000 IU/mL (1.54 log to 8.00 log IU/mL). Test ing was performed using the jasemet EBV test ([employer] with the jasmeet 6800 System. Test Performed by: [facility] [address] [place] [address] Plumber Gasfitter: Randal Aparicio M.D. Ph. D.; CLIA# [id number] Specimen Anatomical Collection Method Collection Time Receive d Time (Source) Location / / Volume Laterality Blood 01/17/2022 8:50 AM 2 EDT 10:03 AM EDT Resulting Agency Comment Spec In Lab Parviz Modi MD IMMUNOLOGY ORDERABLES Performing Organization Address City/[facility]/[place] [address] CMV PCR, Quantitative (01/17/2022 8:50 AM EDT) [facility] Method Time Signature CMV Quant Not Detected Not Detected JIA (Numeric) IU/mL [facility] Comment: Indication for Study: Monitoring CMV DNA Analysis: The jasmeet CMV test is an in vi tro nucleic acid amplification tests using real-time polymerase chain reactio n (PCR) assay for the quantitative measurement of cytomegalovirus (CMV) DNA in human EDTA plasma. Sample: EDTA plasma Method: jasmeet CMV test used with the 680 0 platform ([employer] Business Plan) Linear Range: 34.5 - 1.0 x 10^7 [...] Address City/State/ZIP Code Phon e Number JIA [address] IgG (12/23/2021 10:10 AM EDT) P athologist Signature IgG 1,158 700 - 1,600 [facility] Comment: Pediatric Reference Intervals obtained f rom the Caliper Reference Interval project. http://www.sickkids.ca/caliperp roject/index.html Specimen Anatomical Collection Method Collection Time Receive d Time (Source) Location / / Volume Laterality Blood 12/23/2021 10:10 12/23/2021 AM EDT 10:22 AM EDT Resulting Agency Comment Spec In Lab Parviz Modi MD IMMUNOLOGY ORDERABLES Performing Organization Address City/State/ZIP Code Phon e Number J[place] [address] EBV PCR Quantitative (12/23/2021 10:10 AM EDT) [facility] Method Time Signature EBV DNA BY Undetected Undetected JIA PCR IU/mL [facility] Comment: Result in log IU/mL is Undetected. ADDITIONAL INFORMATIO N The quantification range of this assay i s 35 to 100,000,000 IU/mL (1.54 log to 8.00 log IU/mL). Test ing was performed using the jasmeet EBV test ([employer] with the jasmeet 6800 System. Test Performed by: [facility] [address] [place] [address] Plumber Gasfitter: Randal Aparicio M.D. Ph. D.; IA# [id number] Specimen Anatomical Collection Method Collection Time Receive d Time (Source) Location / / Volume Laterality Blood 12/23/2021 10:10 12/23/2021 4:25 AM EDT PM EDT Resulting Agency Comment Spec In Lab Parviz Modi MD IMMUNOLOGY ORDERABLES Performing Organization Address City/State/ZIP Code [place] [address] CMV PCR, Quantitative (12/23/2021 10:10 AM EDT) [facility] Method Time Signature CMV Quant Not Detected Not Detected JIA (Numeric) IU/mL [facility] Comment: Indication for Study: Monitoring CMV [...] Address City/State/ZIP Code Phon e Number [place] [address] IgG (12/20/2021 9:35 AM EDT) P athologist Signature IgG 1,111 700 - 1,600 JIA MARX mg/dL [facility] Comment: Pediatric Reference Intervals obtained f rom the Caliper Reference Interval project. http://www.sickkids.ca/caliperp roject/index.html Specimen Anatomical Collection Method Collection Time Receive d Time (Source) Location / / Volume Laterality Blood 12/20/2021 9:35 AM 2 9:51 EDT AM EDT Resulting Agency Comment Spec In Lab Parviz Modi MD IMMUNOLOGY ORDERABLES Performing Organization Address City/[facility]/ZIP Code Phon e Number [address] CMV PCR, Quantitative (12/20/2021 9:35 AM EDT) Patholo gist Method Time Signature CMV Quant Not Detected Not Detected JIA (Numeric) IU/mL [facility] Comment: Indication for Study: Monitoring CMV [...] Modi MD IMMUNOLOGY ORDERABLES Performing Organization Address City/[facility]/ZIP Code Phon e Number [address] IgG (12/09/2021 10:50 AM EDT) P athologist Signature IgG 1,326 700 - 1,600 JIA [place]ES[place] mg/dL [facility] Comment: Pediatric Reference Intervals obtained f [place] the Caliper Reference Interval project. http://www.sickkids.ca/caliperp roject/index.html Specimen Anatomical Collection Method Collection Time Receive d Time (Source) Location / / Volume Laterality Blood 12/09/2021 10:50 12/09/2021 AM EDT 10:56 AM EDT Resulting Agency Comment Spec In Lab Parviz Modi MD IMMUNOLOGY ORDERABLES Performing Organization Address City/[facility]/ZIP Code Phon e Number [address] (ABNORMAL) EBV PCR Quantitative (12/09/2021 10:50 AM EDT) Patholo gist Method Time Signature EBV DNA BY 100 (A) Undetected JIA CUELLOCOCK PCR IU/mL [facility] Comment: Result in log IU/mL is 2.00. ADDITIONAL INFORMATIO N The quantification range of this assay i s 35 to 100,000,000 IU/mL (1.54 log to 8.00 log IU/mL). Test ing was performed using the jasmeet EBV test ([employer] with the jasmeet 6800 System. Test Performed by: [facility] [address] [place] [address] Plumber Gasfitter: Randal Aparicio M.D. Ph. D.; CLIA# [id number] Specimen Anatomical Collection Method Collection Time Receive d Time (Source) Location / / Volume Laterality Blood 12/09/2021 10:50 12/09/2021 4:31 AM EDT PM EDT Resulting Agency Comment Spec In Lab Parviz Modi MD IMMUNOLOGY ORDERABLES Performing Organization Address City/[facility]/ZIP Code Phon e Number [address] CMV PCR, Quantitative (12/09/2021 10:50 AM EDT) [facility] Method Time Signature CMV Quant Not Detected Not Detected JIA (Numeric) IU/mL [facility] Comment: Indication for Study: Monitoring CMV [...] Organization Address City/State/Z[place] [address] IgG (12/02/2021 9:45 AM EDT) P athologist Signature IgG 1,215 700 - 1,600 [facility] mg/dL [facility] Comment: Pediatric Reference Intervals obtained f rom the Caliper Reference Interval project. http://www.sickNeumitrads.ca/caliperp roject/index.html Specimen Anatomical Collection Method Collection Time Receive d Time (Source) Location / / Volume Laterality Blood 12/02/2021 9:45 AM 2 EDT 10:00 AM EDT Resulting Agency Comment Spec In Lab Parviz Modi MD IMMUNOLOGY ORDERABLES Performing Organization Address City/State/ZIP Code Phon e Number [address] CMV PCR, Quantitative (12/02/2021 9:45 AM EDT) [facility] Method Time Signature CMV Quant Not Detected Not Detected JIA (Numeric) IU/mL [facility] Comment: Indication for Study: Monitoring CMV DNA Analysis: The jasmeet CMV test is an in vi tro nucleic acid amplification tests using real-time polymerase chain reactio n (PCR) assay for the quantitative measurement of cytomegalovirus (CMV) DNA in human EDTA plasma. Sample: EDTA plasma Method: jasmeet CMV test used with the 680 0 platform ([employer] Plan) Linear Range: 34.5 - 1.0 x 10^7 IU/mL (1 .54 ? 7.00 log IU/mL) Note: The Celia jasmeet CMV assay has been approved by the U.S. Food and Drug Administration for clinical testing. Specimen Anatomical Collection Method Collection Time Receive d Time (Source) Location / / Volume Laterality Blood 12/02/2021 9:45 AM 7:29 EDT AM EDT Resulting Agency Comment Spec In Lab Parviz Modi MD IMMUNOLOGY ORDERABLES Performing Organization Address City/[facility]/ZIP Code Phon e Number [address] IgG (11/25/2021 10:36 AM EDT) P athologist Signature IgG 1,303 700 - 1,600 [facility] mg/dL [facility] Comment: Pediatric Reference Intervals obtained f rom the Caliper Reference Interval project. http://www.sickEveryday Health.ca/caliperp roject/index.html Specimen Anatomical Collection Method Collection Time Receive d Time (Source) Location / / Volume Laterality Blood 11/25/2021 10:36 11/25/2021 AM EDT 10:36 AM EDT Resulting Agency Comment Spec In Lab Parviz Modi MD IMMUNOLOGY ORDERABLES Performing Organization Address City/[facility]/ZIP Code Phon e Number [address] CMV PCR, Quantitative (11/25/2021 10:36 AM EDT) Patholo gist Method Time Signature CMV Quant Not Detected Not Detected JIA (Numeric) IU/mL [facility] Comment: Indication for Study: Monitoring CMV [...] Organization Address City/State/ZIP Code Phon e Number [address] IgG (11/22/2021 10:29 AM EDT) P athologist Signature IgG 1,304 700 - 1,600 JIA MARX mg/dL [facility] Comment: Pediatric Reference Intervals obtained f rom the Caliper Reference Interval project. http://[email or web address]/caliperp roject/index.html Specimen Anatomical Collection Method Collection Time Receive d Time (Source) Location / / Volume Laterality Blood 11/22/2021 10:29 11/22/2021 AM EDT 11:04 AM EDT Resulting Agency Comment Spec In Lab Parviz Modi MD IMMUNOLOGY ORDERABLES Performing Organization Address City/[facility]/ZIP [place] [address] (ABNORMAL) EBV PCR Quantitative (11/22/2021 10:29 AM EDT) Patholo gist Method Time Signature EBV DNA BY <35 (A) Undetected JIA PIERREARASELI PCR IU/mL [facility] Comment: Result in log [...] performed using the jasmeet EBV test ([employer] with the jasmeet 6800 System. Test Performed by: [facility] [address] [place], [place] [address] Plumber Gasfitter: Randal Aparicio M.D. Ph. D.; CLIA# [id number] Specimen Anatomical Collection Method Collection Time Receive d Time (Source) Location / / Volume Laterality Blood 11/22/2021 10:29 11/22/2021 5:03 AM EDT PM EDT Resulting Agency Comment Spec In Lab Parviz Modi MD IMMUNOLOGY ORDERABLES Performing Organization Address City/[facility] [place] [address] CMV PCR, Quantitative (11/22/2021 10:29 AM EDT) [facility] Method Time Signature CMV Quant Not Detected Not Detected JIA (Numeric) IU/mL [facility] Comment: Indication for Study: Monitoring CMV [...] Modi MD IMMUNOLOGY ORDERABLES Performing Organization Address City/[facility] [place] [address] documented in this encounter Visit Diagnoses Diagnosis 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 difficileComment: C. diffiicile 08/20/2021 testing positive 05/25/21. documented as of this encounter Care Teams Clinical Nurse Reviewer Relationship Specialty Start Date End Date Beatriz Maurice PA PCP - General Family Medicine 05/06/21 [address] [place] [address] documented as of this encounter
--- OUTSIDE RECORDS SUMMARY | 2022-02-14 11:13 | XMS_ITS | Encounter Summary ---
:1960 Author Organization [facility] [place] [address] Care Team Providers Name Role Phone Beatriz Maurice Primary Care Provider Encounter Details Date Type Department Care Team Description 11/10/2021 Travel Social History Tobacco Use Types Packs/Day Years [...] MD [facility] [address] HEMATOLOGY/[place] [address] Miroslava Pelayo APRN [facility] [address] HEMATOLOGY/[place] [address] 02/24/2022 Office Visit Wound Care 02/24/2022 Appointment Hematology and Oncology 02/26/2022 Office Visit Neurology Leni Bustamante MD [facility] [place] [address] (Wo rk) documented as of this encounter Visit Diagnoses Not on filedocumented in this encounter Additional Health Concerns Infection Onset Date Last Indicated Resolved Time History of C. difficileComment: C. diffiicile 08/20/2021 testing positive 05/25/21. documented as of this encounter Care Teams Lap Polisher Relationship Specialty Start Date End Date Beatriz Maurice PA PCP - General Family Medicine 05/06/21 [address] [place] [address] documented as of this encounter
--- OUTSIDE RECORDS SUMMARY | 2022-02-14 11:13 | XMS_ITS | Encounter Summary ---
:1960 Author Organization [place] [address] Care Team Providers Name Role Phone Ajithwinmadelin Arunafranki Benjamín DE LA FUENTE Primary Care Provider Reason for Referral Consultation (Routine) - Authorized Specialty Diagnoses / Procedures Referred By Contact Refer red To Contact Neurology Diagnoses Cerebrovascular accident (CVA), unspecified mechanism Diplopia Tonio Diaz Jr., MD [facility] [address] [place] [address] [phone] [place] [address] Referral ID Status Reason Start Date Expiration Visits Visits Date Requested Authorized [id number] Authorized Consult, 11/15/2021 11/15/2022 1 1 Test & Treat hysical Therapy (Routine) - Authorized Specialty Diagnoses / Procedures Referred By Contact Refer red To Contact Physical Therapy Diagnoses Acute myeloid leukemia not having achieved remission Luis Manuel Goodrich Jr., MD Physical Therapy, [facility] HEMATOLOGY/ONCOLOGY [address] DEPT[address] [place], [place] [id number] [place] [id number] Referral ID Status Reason Start Expiration Visits Visits Date Date Requested Authorized [id number] Authorized Evaluate and 11/15/2021 05/14/2022 12 12 Treat Reason for Visit Auth/Cert Specialty Diagnoses [...] Expiration Date Visits Requ ested Visits Authorized [id number] 1 1 Encounter Details Date Type Department Care Team Description 10/15/2021 - [facility] Hematology Luis Manuel Goodrich Jr., MD [facility] HEMATOLOGY/[place] [address] Paroxysmal atrial fibrillation; 11/18/2021 Encounter Special Care Unit Sona Freitas MD [facility] [place]ATOLOG[place] [address] Acute myeloid leukemia in remission; Urban Diaz MD [facility] [place] [address] Bacteremia; [facility] H[facility] [address] Cerebrovascular accident (CVA), unspecif ied mechanism; [facility] Renay Ponce MD [facility] [address] [place] [address] Acute myeloid leukemia not having achiev ed remission Center Parviz Roche MD [facility] HEMATOLOGY/[place] [address] [place] [address] Social History Tobacco Use Types Packs/Day Years [...] Sign Reading Time Taken Comments Blood Pressure 132/81 11/18/2021 12:23 PM EDT Pulse 85 11/18/2021 12:23 PM EDT Temperature 37 ??C (98.6 ??F) 11/18/2021 12:23 PM EDT Respiratory Rate 20 11/18/2021 12:23 PM EDT Oxygen Saturation 98% 11/18/2021 12:23 PM EDT Inhaled Oxygen Concentration - - Weight 99.3 kg (218 lb 14.7 oz) 11/18/2021 5:00 AM EDT Height 177 cm (5' 9.69) 10/27/2021 3:38 PM EDT Body Mass Index 31.7 10/27/2021 3:38 PM EDT documented in this encounter Discharge Summaries Tonio Diaz Jr., MD - 11/18/2021 11:25 AM EDT Images from the original note were not included. Hospital Medicine - Discharge Summary Patient Name: Luis Manuel Mobley Jr. Patient Age: 61 y.o. 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 Follow-up Recommendations for Providers: #Orellana Med Changes: New meds: - Asprin 81mg daily; started due to ischemic stroke during inpatient stay - Fluconazole - Gabapentin - Rosuvastatin - Pantoprazole - Tacrolimus: Dose 1mg every AM, 1.5mg every PM on day of discharge #Lab checks Please follow up his tacrolimus level, pending on day of discharge, and make any indicated dose adjustments *PENDING LABS: Tacrolimus level Discharge Diagnoses (Hospital Problems) and Secondary Diagnoses (Chronic Problems): Active Hospital Problems Diagnosis ??? AML (acute myeloblastic leukemia) Resolved Hospital Problems No resolved problems to display. Operations/Major Procedures: History of Presentation: ORIGINAL HISTORY OF PRESENT ILLNESS??(05/06/21)?? Luis Manuel Mobley Jr.??dates the onset of his??illness to earlier this summer. He has felt more tired than usual but attributed it to the humidity. About 3 weeks ago his fatigue was so bad that he went to [facility]. ??He was evaluated for a UTI that was negative. 1 week ago today he saw hisPCP who ended up gatting a CBC showing abnormal counts and he was admitted to [facility]. Other than fatigue has had no fevers, chills or drenching sweats. ??Has lost a few lbs - <10. ??Appetite has been down recently. ??No bleeding or bruising. ??Was very actived when younger - played a lot of sports into his 40's. ?? INTERIM HPI Luis Manuel is seen in f/u for relapsed FT3+ AML with positive [employer] disease??and in anticipation of admission today for MUD HSCT. ??He is now at day approximately +76??(10/15/21) of venetoclax plus gilteritinib therapy (day 1 ~07/31/2021)??- both have now been held prior to planned admission for HSCT. His most recent LP was 09/27 and BM Bx 09/12 and both showed no evidence of disease. Recent NPM1 MRD determinations shows 99% reduction - now at 1.95%. ?Luis Manuel is seen today to for a final check prior to planned??admission for his MUD HSCT. As above, he has completed his pre-transplant evaluation and there are no contriandications to proceeding as planned. ?? Since last seen Luis Manuel reports that??hew feels entirely well and ready for his transplant. ?? Day of admission HPI Luis Manuel reports some weakness from below his knees to feet, able to do stairs (has 12 steps within the house and able to do that several times per day) with mild PICHARDO which he believes is due to deconditioning and less exercise as of late. He is able to walk independently throughout the house otherwise but has been rather isolated due to COVID. Otherwise feels like he has been quite well and reports ROS per below. Review of Systems: ?? GENERAL ?? HEENT ?? COR ?? PULM ?? All negative ?? All negative ?? All negative ?? All negative ?? Weight loss ?? Headache ?? Chest Pain ?? Non-productive cough ?? Weight gain ?? Vision change ?? Palpitations ?? Productive cough ?? Fevers ?? Sinus congestion ?? Orthopnea ?? Wheezing ?? Chills ?? Hoarseness x?? Leg edema (some ankle swelling at baseline) ?? Hemoptysis ?? Night sweats ?? Epistaxis ?? Paroxysmal nocturnal dyspnea ?? Pleuritic pain ?? Fatigue ? Syncope ?? SOB ? Claudication ??x PICHARDO - pt feels they are deconditioned recently ? MSK ?? RENAL ?? ENDO ?? GI ?? All negative ?? All negative ?? All negative ?? All negative ?? Arthralgias ?? Frequency ?? Heat intolerance ?? Blood in stool ?? Myalgias ?? Urgency ?? Cold intolerance ?? Dysphagia ?? Weakness ?? Hematuria ?? Polydipsia ?? Odynophagia ?? Stiffness ?? Flank pain ?? Polyphagia ?? Abdominal discomfort ? Dysuria ?? Cushingoid ?? Constipation ? Foamy urine ? Diarrhea - Has ostomy since May 2021 ? Discharge ? Nausea/Vomiting ? LYMPH ?? SKIN ?? NEURO ?? PSYCH ?? All negative ?? All negative ?? All negative ?? All negative ?? Swollen nodes ?? Rash ?? Seizures ?? Depressed affect ?? Tender nodes ?? Ulcers ?? Tremors ?? Occupational stress ?? Diffuse nodes ?? Bruising ?? Spasticity ?? Anxiety ?? Local nodes ?? Tanned skin ?? Focal weakness ?? Insomnia ?? Night sweats ?? Telangiectasias ?? Diplopia ?x Paresthesias - Neuropathy at baseline ? Dizziness ? Hospital Course: #MUD allo HSCT for FLT+ AML #VRE bacteremia #Neutropenic fever Patient tolerated stem cell infusion well on 10/22, had some rigors and nausea post-infusion that resolved with medications. Spiked a neutropenic fever on 11/02, cefepime was escalated to zosyn, and then to daptomycin and cefepime after 1 day when BCx came back positive for VRE, likely due to severe mucositis. TTE on 10/09 showed no vegetation. Tunneled line was removed on 11/05 due to being a potential source for infection. Patient completed 14 days of daptomycin on 11/17. Patient had severe mucositis required scheduled morphine (dilaudid made him nauseous and refused wrapper selector) and TPN. DVT ppx with lovenox was stopped due to bleeding from mucositis. Patient's mucositis slowly improved as his counts improved. On discharge, patient is tolerating regular diet well On discharge, patient's ppx meds are: - infection ppx: fluconazole 400mg qd, acyclovir 800mg bid, need to start bactrim in clinic f/u on day +30 - GVHD ppx: tacrolimus 1.5mg AM, 1mg PM - VOD ppx: ursodiol 300mg BID until day +30 MUD HSCT regimen: Day (-7): Fludarabine: Day (-6): Fludarabine, Busulfan, Rabbit ATG: Day (-5): Fludarabine, Busulfan, Rabbit ATG: Day (-4): Fludarabine, Busulfan, Rabbit ATG: Day (-3): Fludarabine, Busulfan: Day (0): Stem Cell Infusion: Day (+1): metHOTREXate: Day (+3): metHOTREXate: Day (+6): metHOTREXate: Day (+11): metHOTREXate: #Ischemic stroke Patient was found to have an acute ischemic stroke on 11/10 after noted to be having word finding difficulty, likely embolic from A. Fib w rvr when unable to take flecanide. CTH wo hemorrhage. MRI brainshowed acute infarct in the posterolateral right frontal lobe. Neurology was consulted. Will plan tostart aspirin when platelet is consistently > 50. Will start rosuvastatin when finish the course of daptomycin. #Pre-renal STACIE Patient had recurrent episodes of STACIE due to high ostomy output when he had poor po intake due to severe mucositis. STACIE resolved with fluids (TPN, IVF) and improving po intake. #Paroxysmal A. Fib - Patient was continued with home metop and flecainide. #Hx of C. Diff colitis - Patient was continued with home po vancomycin, and wound care was consulted for ostomy care. #Bilateral Feet tingling - Pt reports having baseline bilateral feet tingling that was noted to be worsened on on 10/21 (2 daysafter completing 5 days of fludarabine), strength intact, no loss of sensation. Patient was started on gabapentin. #Hx of provoked PE in 04/2021 - Patient was found to have provoked PE in the setting of cancer diagnosis 04/2021. Patient was initially on therapeutic lovenox. Patient does not need to be on therapeutic lovenox because has already received 3 months of AC. Important Studies and Lab Data: Recent Labs 11/18/21 0400 11/17/21 0400 11/16/21 0320 11/15/21 0345 11/14/21 0420 WBC 6.9 8.6 10.5* 9.9* 8.9 HGB 7.1* 7.9* 8.3* 8.1* 8.0* PLATELET 21* 17* 16* 13* 11* Recent Labs 11/18/21 0400 11/17/21 1547 11/17/21 0400 11/16/21 0320 11/15/21 0345 NA 139 138 136 138 138 K 5.1* 4.8 5.1* 5.0 4.7 CL 105 104 101 103 102 CO2 22 23 23 24 24 BUN 31* 35* 35* 31* 30* CREATININE 1.45 1.65* 1.53* 1.12 0.95 GLUCOSE 101 123 108 110 150 Recent Labs 11/18/21 0400 11/17/21 1547 11/17/21 0400 11/16/21 0320 CALCIUM 9.0 9.2 9.3 9.2 MAGNESIUM 0.76 -- 0.70 0.77 PHOS 4.8* 5.1* 5.7* 5.1* Recent Labs 11/18/21 0400 11/14/21 0420 AST 24 29 ALT 21 22 ALKPHOS 124 130 BILITOT 0.4 0.3 BILIDIR 0.1 0.1 No results for input(s): INR in the last 168 hours. Recent Labs 11/11/21 0350 HA1C 5.8* Microbiology: Microbiology Results (Last 30 days) Procedure Component Value Units Date/Time Blood culture [[id number]] Collected: 11/10/21 1421 Lab Status: Final result Specimen: Blood Updated: 11/15/21 2302 Blood Culture No growth at 5 days. Blood culture [[id number]] Collected: 11/10/21 1314 Lab Status: Final result Specimen: Blood Updated: 11/15/21 1501 Blood Culture No growth at 5 days. C. Difficile Screen [[id number]] Collected: 11/09/21 1440 Lab Status: Final result Specimen: Stool Updated: 11/09/21 1548 C Diff Screen Negative Comment: Ag/Tox Neg C. diff?? Negative Clostridium difficile is not present in the specimen. If patient is having diarrhea suspected to be from an infectious cause, then Soap & Water Contact Precautions are still required. Blood culture [[id number]] Collected: 11/09/21 0428 Lab Status: Final result Specimen: Blood Updated: 11/14/21 0701 Blood Culture No growth at 5 days. Blood culture [[id number]] Collected: 11/09/21 0410 Lab Status: Final result Specimen: Blood Updated: 11/14/21 0701 Blood Culture No growth at 5 days. Blood culture [[id number]] Collected: 11/06/21 1224 Lab Status: Final result Specimen: Blood from Hand, Left Updated: 11/11/21 1501 Blood Culture No growth at 5 days. Blood culture [[id number]] Collected: 11/06/21 1218 Lab Status: Final result Specimen: Blood from Antecubital, Left Updated: 11/11/21 1501 Blood Culture No growth at 5 days. Blood culture [[id number]] Collected: 11/05/21 0935 Lab Status: Final result Specimen: Blood from Hand, Left Updated: 11/10/21 1501 Blood Culture No growth at 5 days. Blood culture [[id number]] Collected: 11/05/21 0928 Lab Status: Final result Specimen: Blood from Arm, Left Updated: 11/10/21 1501 Blood Culture No growth at 5 days. Blood culture [[id number]] Collected: 11/03/21 0408 Lab Status: Final result Specimen: Blood Updated: 11/08/21 0701 Blood Culture No growth at 5 days. Blood culture [[id number]] (Abnormal) Collected: 11/03/21 0356 Lab Status: Final result Specimen: Blood Updated: 11/08/21 0706 Blood Culture -- Corynebacterium species isolated : Interpretation of the importance of skin mitzy such as Coagulase Negative Staph, Viridans Strep, Corynebacteria and other Gram Positive organisms from a single Blood Culture set requires clinical correlation. Gram Stain Aerobic -- Note: This is a corrected report Growth detected in aerobic bottle. Gram Positive Rods seen Previously reported as: Gram Positive Cocci seen Results called to and read back by Denise Madera RN at 11/06/21 10:57:10 Blood culture [[id number]] (Abnormal) (Susceptibility) Collected: 11/02/21 1018 Lab Status: Final result Specimen: Blood Updated: 11/05/21 1124 Blood Culture -- Enterococcus faecium isolated * VRE, Vancomycin Resistance * Isolate saved. If future testing is required, contact the Microbiology Industrial Organizational Psychologist. Gram Stain Aerobic -- Growth detected in aerobic bottle. Gram Positive Cocci in pairs seen Gram Stain Anaerobic -- Growth detected in anaerobic bottle. Gram Positive Cocci in pairs seen Results called to and read back by Radha Marmolejo 11/03/21 02:42:51 VMartin Susceptibility Enterococcus faecium MICROSCAN METHOD Ampicillin Resistant Erythromycin Resistant Gentamicin 500 Sensitive Linezolid Sensitive Penicillin Resistant Vancomycin Resistant Linear View Blood culture [[id number]] (Abnormal) Collected: 11/02/21 1018 Lab Status: Final result Specimen: Blood Updated: 11/05/21 1125 Blood Culture -- Enterococcus faecium isolated * VRE, Vancomycin Resistance * Susceptibilities previously reported Gram Stain Anaerobic -- Growth detected in anaerobic bottle. Gram Positive Cocci in pairs seen Gram Stain Aerobic -- Growth detected in aerobic bottle. Gram Positive Cocci in pairs seen C. Difficile Screen [[id number]] Collected: 10/28/21 1207 Lab Status: Final result Specimen: Stool Updated: 10/28/21 1334 C Diff Screen Negative Comment: Ag/Tox Neg C. diff?? Negative Clostridium difficile is not present in the specimen. If patient is having diarrhea suspected to be from an infectious cause, then Soap & Water Contact Precautions are still required. Blood culture [[id number]] Collected: 10/20/21 173 Lab Status: Final result Specimen: Blood Updated: 10/25/21 2301 Blood Culture No growth at 5 days. Blood culture [[id number]] Collected: 10/20/21 173 Lab Status: Final result Specimen: Blood Updated: 10/25/21 2301 Blood Culture No growth at 5 days. Pertinent radiology/diagnostic studies: Results for orders placed or performed during the hospital encounter of 10/15/21 XR Chest PA & Lateral (Generic) (Exam End: 10/19/2021 1:58 PM) Impression Clear lungs. Thank you for letting us participate in the care of this patient. If you are a health care provider and have any questions regarding this report, please contact the number below. For patients who have questions please contact the health resident care supervisor that requested your imaging first. Electronically signed by: Domingo Lantigua, [facility] ([phone]), at 10/19/2021 2:01 PM XR Chest One View (Exam End: 11/02/2021 9:36 AM) Impression No active disease in the chest. Thank you for letting us participate in the care of this patient. If you are a health care provider and have any questions regarding this report, please contact the number below. For patients who have questions please contact the health resident care supervisor that requested your imaging first. Electronically signed by: Renny Yu MD, [facility] ([phone]), at 11/02/2021 10:[address] Abdomen & Pelvis w Contrast (Exam End: 11/03/2021 7:49 PM) Impression 1. Ill defined opacities in lingula may represent pneumonia. Consider follow-up chest x-ray if indicated. 2. No abdominal or pelvic abscess seen. 3. Hiatal hernia with fat stranding around a thick walled and dilated distal esophagus. Finding may represent esophagitis. 4. Resolution of splenomegaly. 5. No enlarged abdominal and pelvic lymph nodes. 6. No abdominal or pelvic ascites. Thank you for letting us participate in the care of this patient. If you are a health care provider and have any questions regarding this report, please contact the number below. For patients who have questions please contact the health resident care supervisor that requested your imaging first. Electronically signed by: Daniela Roach MD, [facility] ([phone]), at 11/03/2021 8:25 PM XR Chest One View (Exam End: 11/04/2021 8:50 AM) Impression Radiographically the left basilar airspace opacity seen on 11/02/2021 has resolved and findings are now similar compared to a radiograph from 10/19/2021. However, it is uncertain to which extent the mild opacities seen on CT 11/03/2021 still persist or have resolved (due to difference in technique). Within the limitation of single frontal view the change in positioning of the left subclavian central venous catheter in comparison to 10/19/2021 is due to the fact that the tip has flipped into the azygos vein (unchanged to 11/02/2021). Please correlate clinically if functionality of this catheter remains adequate. Thank you for letting us participate in the care of this patient. If you are a health care provider and have any questions regarding this report, please contact the number below. For patients who have questions please contact the health resident care supervisor that requested your imaging first. Electronically signed by: Elizabeth Worthington MD, [facility] ([phone]), at 11/04/2021 9:17 AM XR PICC Placement Over 5 Years with Imaging Guidance (IV Team) (Exam End: 11/04/2021 4:06 PM) Impression Well-positioned right-sided PICC line. Thank you for letting us participate in the care of this patient. If you are a health care provider and have any questions regarding this report, please contact the number below. For patients who have questions please contact the health resident care supervisor that requested your imaging first. Electronically signed by: Lobo Beck MD, [facility] ([phone]), at 11/04/2021 4:[address] Head wo & Multiphase CTA Head/Neck (THROMBECTOMY PROTOCOL) (Exam End: 11/10/2021 10:34 AM) Impression Noncontrast head CT: Acute infarct in the posterior aspect of the right occipital lobe with no acute hemorrhage. Please also see follow-up MRI brain findings, study currently pending. CTA head and neck: No significant arterial abnormality. Specifically, no proximal branch occlusion. I discussed these results with Dr. Ninoska Ponce on 11/10/2021 at 11:20 AM and verified that he understood these results. Thank you for letting us participate in the care of this patient. If you are a health care provider and have any questions regarding this report, please contact the number below. For patients who have questions please contact the health resident care supervisor that requested your imaging first. Electronically signed by: Hollie Collier MD, [facility] ([phone]), at 11/10/2021 11:28 AM MRI Brain wwo Contrast (Generic) (Exam End: 11/10/2021 4:21 PM) Impression 1. Punctate acute infarct in the posterolateral right frontal lobe subcortical white matter, without acute hemorrhage. 2. The hypodensity previously seen in the right occipital lobe reflected artifact on the preceding CT scan as there is no abnormality in this location on the current study. I discussed these results with Dr. Ninoska Ponce on 11/10/2021 at 4:50 PM and verified that he understood these results. Thank you for letting us participate in the care of this patient. If you are a health care provider and have any questions regarding this report, please contact the number below. For patients who have questions please contact the health resident care supervisor that requested your imaging first. Electronically signed by: Hollie Collier MD, [facility] ([phone]), at 11/10/2021 4:51 PM Discharge Conditions/Prognosis: Upon discharge the pt is hemodynamically stable, afebrile, fully ambulatory without requiring supplemental oxygen, holding down food/drink, and pain controlled with stable oral regimen. Discharge to: Home Discharge Medications: Your Medications New Medications Dose Details aspirin 81 mg Chew Take 81 mg by mouth daily. 81 mg Quantity: 30 tablet Refills: 3 fluconazole 200 mg Tab Commonly known as: Diflucan Take 2 tablets by mouth daily for 30 days. 400 mg Quantity: 60 tablet Refills: 0 gabapentin 100 mg Cap Commonly known as: Neurontin Take 2 capsules by mouth 3 times daily. 200 mg Quantity: 90 capsule Refills: 12 pantoprazole EC 40 mg Tbec Commonly known as: Protonix Take 1 tablet by mouth daily. 40 mg Quantity: 90 tablet Refills: 3 rosuvastatin 40 mg Tab Commonly known as: Crestor Take 1 tablet by mouth daily. 40 mg Quantity: 90 tablet Refills: 3 * tacrolimus 1 mg Cap Commonly known as: Prograf Take 1 capsule by mouth nightly for 30 days. 1 mg Quantity: 30 capsule Refills: 0 * tacrolimus 0.5 mg Cap Commonly known as: Prograf Take 3 capsules by mouth daily. 1.5 mg Quantity: 30 capsule Refills: 0 * This list has 2 medication(s) that are the same as other medications prescribed for you. Read thedirections carefully, and ask your doctor or other care provider to review them with you. Continued medications with new dosing Dose Details acyclovir 800 mg Tab Commonly known as: Zovirax Take 1 tablet by mouth 2 times daily. What changed: ?? medication strength ?? how much to take 800 mg Quantity: 60 tablet Refills: 0 Continued medications, unchanged Dose Details famotidine 20 mg Tab Commonly known as: Pepcid Take 2 tablets by mouth daily. 40 mg Quantity: 30 tablet Refills: 12 flecainide 50 mg Tab Commonly known as: TAMBOCOR Take 1 tablet by mouth 2 times daily. 50 mg Quantity: 60 tablet Refills: 3 gilteritinib 40 mg tablet Commonly known as: Xospata Take 3 tablets (120 mg) by mouth daily. Call clinic before starting medication. Indications: acute myeloid leukemia with FLT3 mutation 120 mg Quantity: 90 tablet Refills: 0 lidocaine-prilocaine Crea Commonly known as: EMLA Apply to mediport approximately 30 minutes prior to access. Quantity: 30 g Refills: 0 loperamide 2 mg Cap Commonly known as: Imodium A-D Take 1 capsule by mouth 3 times daily. 2 mg Quantity: 90 tablet Refills: 0 metoprolol succinate XL 50 mg Tablet sr Commonly known as: Toprol-XL Take 1 tablet by mouth daily. 50 mg Quantity: 30 tablet Refills: 5 Ostomy Belt Medium Misc Dispense 1 Sensura [place] Belt #[id number] per month. Generic drug: Colostomy Belt Quantity: 1 each Refills: 11 * Ostomy Supplies Misc Dispense 2 boxes ( 10/box) of [employer] Barrier rings #[id number] per month. Quantity: 20 each Refills: 11 * Ostomy Supplies Powd Dispense 1 bottle of [employer] stoma powder #[id number] every other month. Quantity: 28.3 g Refills: 5 * Ostomy Supplies Misc Dispense 2 boxes (10/box) of Sensura Flako Soft Convex One-piece Pouch #[id number] per month. Quantity: 20 each Refills: 11 * Ostomy Supplies Misc Dispense 2 boxes (20/box) of Brava Elastic Barrier strips #[id number] per month. Quantity: 40 each Refills: 11 * Ostomy Supplies Misc Dispense 1 box (50/box) of a generic no-sting skin barrier wipe per month. Quantity: 50 each Refills: 11 sulfamethoxazole-trimethoprim DS 800-160 mg Tab Commonly known as: Bactrim DS Take 1 tablet by mouth three times a week. 1 tablet Quantity: 12 tablet Refills: 5 tamsulosin 0.4 mg Cap Commonly known as: [...] to review them with you. STOPPED Medications enoxaparin 100 mg/mL Syrg Commonly known as: Lovenox levoFLOXacin 750 mg Tab Commonly known as: Levaquin phenytoin 50 mg Chew Commonly known as: Dilantin venetoclax 100 mg tablet Commonly known as: Venclexta Updated Allergies/ADRs: Allergies Allergen Reactions ??? Other [Unclassified Drug] Other (See Comments) Artificial Sweetners-lightheadedness, dizziness ??? Bactoshield Chg [Chlorhexidine Gluconate] Itching and Rash CHG wipes reported he gets a rash and is itchy. 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 You tolerated the procedure well, though dealt with a few complications during your stay. This includes a small ischemic stroke with caused some word finding difficulties that, fortunately, resolved by time of discharge. You were also found to have a blood stream infection, likely related to your mucositis. You completed a course of antibiotics to treat this. Please follow up with your Loss Control Technician later this week for lab checks and possible dose adjustments. Call your doctor or seek medical attention if you develop the following - fever, chills, worsening weakness, chest pain, shortness of breath, cough, weakness in an arm or leg Activity level - no restrictions Diet - no change in previous diet Driving - as before hospitalization Shower/Bath - permitted Wound Care - none Home Oxygen therapy - None Changes in Your Medications: See AVS for summary of medication changes and administration instructions: Of note: Your current Tacrolimus dose is 1.5mg every morning and 1mg every evening for a total dailydose of 2.5mg. This may change in the future depending on lab values. Follow-up: Future Appointments Date Time Provider Department Center 11/25/2021 10:00 AM ACCESS ROOM [facility] INF 3K [facility] 11/25/2021 11:15 AM Parviz Modi MD [facility] HEM ONC [facility] 11/25/2021 12:30 PM LEB INFUSION THERAPY [facility] INF 3K [facility] 11/25/2021 3:00 PM OSTOMY NURSE, WOUND CENTER Wound [facility] 12/02/2021 9:30 AM ACCESS ROOM [facility] INF 3K [facility] 12/02/2021 10:15 AM Parviz Modi MD [facility] HEM ONC [facility] 12/02/2021 11:30 AM LEB INFUSION THERAPY [facility] INF 3K [facility] 12/09/2021 10:15 AM ACCESS ROOM [facility] INF 3K [facility] 12/09/2021 11:15 AM Parviz Modi MD [facility] HEM ONC [facility] 12/09/2021 12:30 PM LEB INFUSION THERAPY [facility] INF 3K [facility] 12/16/2021 10:15 AM ACCESS ROOM [facility] INF 3K [facility] 12/16/2021 11:15 AM Parviz Modi MD [facility] HEM ONC [facility] 12/16/2021 12:30 PM LEB INFUSION THERAPY [facility] INF 3K [facility] 12/23/2021 9:45 AM ACCESS ROOM [facility] INF 3K [facility] 12/23/2021 10:45 AM Parviz Modi MD [facility] HEM ONC [facility] 12/23/2021 12:00 PM LEB INFUSION THERAPY [facility] INF 3K [facility] 12/30/2021 9:45 AM ACCESS ROOM [facility] INF 3K [facility] 12/30/2021 10:45 AM Parviz Modi MD [facility] HEM ONC [facility] 12/30/2021 12:00 PM LEB INFUSION THERAPY [facility] INF 3K [facility] 01/06/2022 9:00 AM [facility] NM THU MH Nuc Med [facility] Rad 01/06/2022 9:30 AM [facility] NM ROOM 2 MH Nuc Med [facility] Rad 01/06/2022 10:15 AM NUCLEAR STRESS MH NI Card [facility] 01/06/2022 10:20 AM [facility] NM STRESS MH Nuc Med [facility] Rad 01/06/2022 10:35 AM [facility] NM ROOM 2 MH Nuc Med [facility] Rad Your Inpatient Doctor: Parviz Modi MD Your PCP: LEISA Munguia [phone] For questions regarding this document or issues relating to this hospitalization on the Medical Service, please contact your inpatient physician through the [facility] Business Education Professor . Issues after hours and on weekends will be handled by the Hospitalist staff on-call. Future Appointments and Orders Future Appointments and Orders Future Appointments Provider Department Dept Phone 11/22/2021 10:00 AM ACCESS ROOM Hematology and Oncology at [facility] Arrive at: [facility] [phone] 11/22/2021 11:30 AM Hayley Palmer, STUMMEL SELECTOR; Miroslava Pelayo, STUMMEL SELECTOR; Parviz Modi MD Hematology and Oncology at [facility] Arrive at: [facility] [phone] 11/22/2021 12:30 PM INFUSION, ONE [address] Arrive at: Main Entrance[facility] [phone] 11/25/2021 10:00 AM ACCESS ROOM Hematology and Oncology at [facility] Arrive at: [facility] [phone] 11/25/2021 11:15 AM Hayley Palmer STUMMEL SELECTOR; Miroslava Pelayo, STUMMEL SELECTOR; Parviz Modi MD Hematology and Oncology at [facility] Arrive at: [facility] [phone] 11/25/2021 12:30 PM LEB INFUSION THERAPY Hematology and Oncology at [facility] Arrive at: [facility] [phone] 11/25/2021 3:00 PM OSTOMY NURSE, WOUND CENTER Wound Care at [facility] Arrive at: [facility] 12/02/2021 9:30 AM ACCESS ROOM Hematology and Oncology at [facility] Arrive at: [facility] [phone] 12/02/2021 10:15 AM Hayley Palmer, STUMMEL SELECTOR; Miroslava Pelayo, STUMMEL SELECTOR; Parviz Modi MD Hematology and Oncology at [facility] Arrive at: [facility] [phone] 12/02/2021 11:30 AM LEB INFUSION THERAPY Hematology and Oncology at [facility] Arrive at: [facility] [phone] 12/09/2021 10:15 AM ACCESS ROOM Hematology and Oncology at [facility] Arrive at: [facility] [phone] 12/09/2021 11:15 AM Hayley Palmer APRN; Miroslava Pelayo APRN; Parviz Modi MD Hematology and Oncology at [facility] Arrive at: [facility] [phone] 12/09/2021 12:30 PM LEB INFUSION THERAPY Hematology and Oncology at [facility] Arrive at: [facility] [phone] 12/16/2021 10:15 AM ACCESS ROOM Hematology and Oncology at [facility] Arrive at: [facility] [phone] 12/16/2021 11:15 AM Hayley Palmer APRN; Miroslava Pelayo APRN; Parviz Modi MD Hematology and Oncology at [facility] Arrive at: [facility] [phone] 12/16/2021 12:30 PM LEB INFUSION THERAPY Hematology and Oncology at [facility] Arrive at: [facility] [phone] 12/23/2021 9:45 AM ACCESS ROOM Hematology and Oncology at [facility] Arrive at: [facility] [phone] 12/23/2021 10:45 AM Hayley Palmer APRN; Miroslava Pelayo APRN; Parviz Modi MD Hematology and Oncology at [facility] Arrive at: [facility] [phone] 12/23/2021 12:00 PM LEB INFUSION THERAPY Hematology and Oncology at [facility] Arrive at: [facility] [phone] 12/30/2021 9:45 AM ACCESS ROOM Hematology and Oncology at [facility] Arrive at: [facility] [phone] 12/30/2021 10:45 AM Hayley Palmer APRN; Miroslava Pelayo APRN; Parviz Modi MD Hematology and Oncology at [facility] Arrive at: [facility] [phone] 12/30/2021 12:00 PM LEB INFUSION THERAPY Hematology and Oncology at [facility] Arrive at: [facility] [phone] 01/06/2022 9:00 AM [employer] THU Nuclear Medicine at [facility] Arrive at: 3Z INTERVENTIONAL RADIOLOGY [phone] Please do not eat or drink anything for at least 3 hours prior to your appointment. Also, Do not consume any caffeine in any form from food, beverages or medciation for 12 hours prior to exam. This includes: decaffeinated coffee and beverages, chocolate in any form, over the counter medications containing caffeine, ex: Exedrin Migraine etc. 01/06/2022 9:30 AM [employer] ROOM 2 Nuclear Medicine at [facility] Arrive at: 3Z INTERVENTIONAL RADIOLOGY [phone] Please do not eat or drink anything [...] 10:15 AM NUCLEAR STRESS Non-Invasive Cardiology Lab [facility] Arrive at: [facility] 4A [phone] 01/06/2022 10:20 AM [employer] STRESS Nuclear Medicine at [facility] Arrive at: 3Z INTERVENTIONAL RADIOLOGY [phone] Please do not eat or drink anything for at least 3 hours prior to your appointment. Also, Do not consume any caffeine in any form from food, beverages or medciation for 12 hours prior to exam. This includes: decaffeinated coffee and beverages, chocolate in any form, over the counter medications containing caffeine, ex: Exedrin Migraine etc. 01/06/2022 10:35 AM [employer] ROOM 2 Nuclear Medicine at [facility] Arrive at: 3Z INTERVENTIONAL RADIOLOGY [phone] Future Orders Complete By Expires Referral to Neurology [REF46 Custom] As directed Process Instructions: If no progress note charted, please enter Clinical details in comments. Scheduling Instructions: Questions: My question or request is: Pt with small right cerebral stroke during admission for stem cell transplant. Ischemic, likely cardio-embolic in setting of atrial fibrillation. Word finding difficulty anddifficulties following commands, no MSK deficits. Symt improved during stay. Referral to Physical Therapy [REF87 Custom] As directed Process Instructions: Note: Please indicate in the comments any additional Instructions, precautions or contradictions. Scheduling Instructions: Questions: Reason for PT: weakness and deconditioned Specialty Program Eval: Modalities could include: Treatment Focus: For questions regarding this document or issues relating to this hospitalization on the Medical Service, please contact your inpatient physician through the [facility] Business Education Professor . Issues after hours and on weekends will be handled by the Hospitalist staff on-call. 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 You tolerated the procedure well, though dealt with a few complications during your stay. This includes a small ischemic stroke with caused some word finding difficulties that, fortunately, resolved by time of discharge. You were also found to have a blood stream infection, likely related to your mucositis. You completed a course of antibiotics to treat this. Please follow up with your Loss Control Technician later this week for lab checks and possible dose adjustments. Call your doctor or seek medical attention if you develop the following - fever, chills, worsening weakness, chest pain, shortness of breath, cough, weakness in an arm or leg Activity level - no restrictions Diet - no change in previous diet Driving - as before hospitalization Shower/Bath - permitted Wound Care - none Home Oxygen therapy - None Changes in Your Medications: See AVS for summary of medication changes and administration instructions: Of note: Your current Tacrolimus dose is 1.5mg every morning and 1mg every evening for a total dailydose of 2.5mg. This may change in the future depending on lab values. Follow-up: Future Appointments Date Time Provider Department Center 11/25/2021 10:00 AM ACCESS ROOM [facility] INF 3K [facility] 11/25/2021 11:15 AM Parviz Modi MD [facility] HEM ONC [facility] 11/25/2021 12:30 PM LEB INFUSION THERAPY [facility] INF 3K [facility] 11/25/2021 3:00 PM OSTOMY NURSE, WOUND CENTER Wound [facility] 12/02/2021 9:30 AM ACCESS ROOM [facility] INF 3K [facility] 12/02/2021 10:15 AM Parviz Modi MD [facility] HEM ONC [facility] 12/02/2021 11:30 AM LEB INFUSION THERAPY [facility] INF 3K [facility] 12/09/2021 10:15 AM ACCESS ROOM [facility] INF [address] [place] [address] 12/09/2021 11:15 AM Parviz Modi MD [facility] HEM ONC [facility] 12/09/2021 12:30 PM LEB INFUSION THERAPY [facility] INF 3K [facility] 12/16/2021 10:15 AM ACCESS ROOM [facility] INF [address] [place] [address] 12/16/2021 11:15 AM Parviz Modi MD [facility] HEM ONC [facility] 12/16/2021 12:30 PM LEB INFUSION THERAPY [facility] INF [address] [place] [address] 12/23/2021 9:45 AM ACCESS ROOM [facility] INF [address] [place] [address] 12/23/2021 10:45 AM Parviz Modi MD [facility] HEM ONC [facility] 12/23/2021 12:00 PM LEB INFUSION THERAPY [facility] INF 3K [facility] 12/30/2021 9:45 AM ACCESS ROOM [facility] INF [address] [place] [address] 12/30/2021 10:45 AM Parviz Modi MD [facility] HEM ONC [facility] 12/30/2021 12:00 PM LEB INFUSION THERAPY [facility] INF [address] [place] [address] 01/06/2022 9:00 AM [facility] NM THU MH Nuc Med [facility] Rad 01/06/2022 9:30 AM [facility] NM ROOM 2 MH Nuc Med [facility] Rad 01/06/2022 10:15 AM NUCLEAR STRESS MH NI Card [facility] 01/06/2022 10:20 AM [facility] NM STRESS MH Nuc Med [facility] Rad 01/06/2022 10:35 AM [facility] NM ROOM 2 MH Nuc Med [facility] Rad Your Inpatient Doctor: Parviz Modi MD Your PCP: Beatriz Maurice, LEISA [phone] For questions regarding this document or issues relating to this hospitalization on the Medical Service, please contact your inpatient physician through the [facility] Business Education Professor . Issues after hours and on weekends will be handled by the Hospitalist staff on-call. documented in this encounter Medications at Time of Discharge Medication Sig Dispensed Refills Start Date End Date Ostomy Supplies Misc Dispense 2 boxes ( 20 each 11 022 10/box) of [employer] Barrier rings #[id number] per month. Ostomy Supplies Powder Dispense 1 bottle of 28.3 g 5 11/2021 [employer] stoma powder #7906 every other month. Ostomy Supplies Misc Dispense 2 boxes 20 each 11 2 (10/box) of Sensura [place] Soft Convex One-piece Pouch #[id number] per month. Ostomy Supplies Misc Dispense 2 boxes 40 each 11 2 (20/box) of Brava Elastic Barrier strips #[id number] per month. Ostomy Supplies Misc Dispense 1 box 50 each 08/20/2021 (50/box) of a generic no-sting skin barrier wipe per month. tamsulosin (Flomax) Take 1 capsule by 90 tablet 0 2 0.4 mg Capsule mouth daily. flecainide (TAMBOCOR) Take 1 tablet by mouth 60 tablet 3 50 mg Tablet 2 times daily. lidocaine-prilocaine Apply to mediport 30 g 0 10/04/19 22 (EMLA) Cream approximately 30 minutes prior to access. Colostomy Belt (Ostomy Dispense 1 Sensura Flako 1 each 11 0 08/20/2021 12/13/2021 Belt Medium) [facility] Belt #7037 per month. famotidine (Pepcid) 20 Take 2 tablets by 30 tablet 12 202011/22/2021 mg Tablet mouth daily. 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 Denied pain. Endorsed mucositis pain still there with PO intake but tolerable to eat and take pills. Ate oatmeal for breakfast. Good PO fluid intake. Q6HWA neuros as documented. Tacro trough drawn this AM, pending. 1 unit RBCs given for hgb 7.1, no recheck needed per MD. PICC discontinued per VAS RN. Discharge order in e-DH. AVS reviewed with patient and significant other, reviewedtransplant discharge care. All questions and concerns addressed. Reviewed process of tacro troughs being drawn as outpatient, site care of removed PICC line, etc. Discharge home with S.O. in private vehicle. Action List Discharge Home Parviz Modi MD - 11/18/2021 11:24 AM EDT HEMATOLOGY/BMT STAFF DAY OF DISCHARGE NOTE I interviewed, examined and reviewed data on Luis Manuel Benjamín Mobley Jr.. I agree with Dr. Lu's finding,assessment and plans as listed in the d/c summary. Our assessment is that he is stable and ready fordischarge today. His mucositis is much improved and he is now eating and drinking adequately. STACIE much improved. No longer transfusion dependent for plts but will receive 1 unit PRBC before d/c. I alsoreviewed his current status and plans for his discharge and follow-up with Luis Manuel Mobley Jr., his nurse, the resident team and our corporate event planner. Luis Manuel is aware that should questions or concerns arise, we are available 24 hours per day. He will be seen back in clinic on 11/22/21. At the end of our visit Luis Manuel confirmed that all of his questions had been addressed. > 30 minutes was spent in patient care, counseling and in arranging this discharge. Parviz Modi MD Section of Hematology/Oncology Page: #[phone] Office Phone: [phone] - 11/18/2021 10:26 AM EDT Nutrition Progress Note Luis Manuel Mobley Jr. is a 61 y.o. 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 Reason for intervention: Follow up Nutrition Recommendations: BMT diet Encourage good po intake Snacks - prn Monitor hydration Monitor wt daily Monitor lytes Seen outpatient by Aubrey Givens RD Active Orders Diet Neutropenic (BMT) diet Frequency: Effective Now Number of Occurrences: Until Specified Order Comments: No grapefruit products Lab Results Component Value Date NA 139 11/18/2021 K 5.1 (H) 11/18/2021 CL 105 11/18/2021 CO2 22 11/18/2021 BUN 31 (H) 11/18/2021 CREATININE 1.45 11/18/2021 ESTGFR 52 (L) 11/18/2021 MAGNESIUM 0.76 11/18/2021 CALCIUM 9.0 11/18/2021 PHOS 4.8 (H) 11/18/2021 AST 24 11/18/2021 ALT 21 11/18/2021 ALKPHOS 124 11/18/2021 BILITOT 0.4 11/18/2021 BILIDIR 0.1 11/18/2021 TRIG 171 07/13/2021 HA1C 5.8 (H) 11/11/2021 [id number] 1,799 (H) 08/01/2021 SFOLATE 5.6 08/01/2021 IRON [...] Injury Device Sites: O2 sat monitor, IV sites, other (see comments) (ostomy) Other Sites: id band Relevant medications: BMX prn, imodium, protonix, caphosol, prograf, zofran prn Last Bowel Movement: 11/18/21 Intake/Output Summary (Last 24 hours) at 11/18/2021 1026 Last data filed at 11/18/2021 0930 Gross per 24 hour Intake 3057 ml Output 1625 ml Net 1432 ml Admit Weight: 107.1 kg Estimated body mass index is 31.7 kg/m?? as calculated from the following: Height as of this encounter: 177 cm (5' 9.69). Weight as of this encounter: 99.3 kg (218 lb 14.7 oz). Anton Body Weight: 74.6 kg Usual Body Weight: 235 lbs per pt Wt loss: 13 lbs in ~1 month (5.5% body weight, clinically significant) Wt Readings from Last 10 Encounters: 11/18/21 99.3 kg (218 lb 14.7 oz) [...] 9.6 oz) 08/19/21 100.2 kg (221 lb) Patient Vitals for the past 168 hrs: Weight 11/18/21 0500 99.3 kg (218 lb 14.7 oz) 11/17/21 1543 98.5 kg (217 lb 2.5 oz) 11/17/21 0640 98.8 kg (217 lb 13 oz) 11/16/21 1635 99 kg (218 lb 4.1 oz) 11/16/21 0523 99.4 kg (219 lb 2.2 oz) 11/15/21 1555 100.4 kg (221 lb 5.5 oz) 11/15/21 0631 101.1 kg (222 lb 14.2 oz) 11/14/21 1530 101.2 kg (223 lb 1.7 oz) 11/14/21 0403 101.3 kg (223 lb 5.2 oz) 11/13/21 1540 101.5 kg (223 lb 12.3 oz) 11/13/21 0300 101.3 kg (223 lb 5.2 oz) 11/12/21 1550 101.4 kg (223 lb 8.7 oz) 11/12/21 0440 101.1 kg (222 lb 14.2 oz) 11/11/21 1635 101.3 kg (223 lb 5.2 oz) Assessment: Estimated needs: Calories: 1865 (25 kcal/kg IBW) Protein: 89-112 grams (1.2-1.5 g/kg IBW) Nutrition Focused Physical Exam (NFPE): Performed on 10/28/21. Subcutaneous fat loss at Orbital region: None present Upper arm region (triceps/biceps): None present Thoracic and lumbar region (ribs, lower back and maxillary line): Not assessed Lean muscle loss to Orthodoxy region (temporalis muscle): None present Clavicle bone region (pectoralis major): None present Dorsal hand (interosseous muscle): None present Shoulder (deltoid): None present Scapular bone region (latissimus dorsi, trapezius muscles): Not assessed Thigh region (quadriceps muscle): None present Posterior calf region (gastrocnemius muscle): None present Fluid accumulation: Not assessed Nutrition intake and intake history/Interview: Luis Manuel continues to report minimal appetite d/t lack oftaste, reported foods taste bland, encouraged pt to try different temps of foods and flavors. He reported he had oatmeal for breakfast this morning, reported the brown sugar helped the taste although it was still somewhat bland and he was able to eat all of it. He reported his mouth pain is improving.Po intake continues to be variable, he had a milkshake for dinner yesterday and some pretzels. IIleostomy output improving, imodium noted. 11/15: Luis Manuel continues to report a minimal appetite, had some applesauce this morning (50kcal, 1g protein). He reported yesterday he had some oatmeal with grapes for breakfast, no lunch, and ~50% of the turkey dinner (total for day: 330kcal and 13g protein). He continues to report pain with swallowing, although improving. He reported he feels that his tongue feels the worst which is affecting his ability to taste and contributing to lack of appetite. Declined to set up snacks again at this time. Continue to encourage good po intake, currently eating <25% of estimated needs. 11/13: At time of visit, pt eating hard boiled eggs for breakfast. He reported he did not eat breakfast or lunch yesterday, had soup for dinner. He reported mucositis is improving, although he is still primarily eating softer foods. He is no longer eating the snacks from dietary, will d/c. TPN switchedto cyclic today. Protein-calorie Malnutrition: Not enough data to assess (Cameron, JPEN J Parenteral Enteral Nutr. 2011; 36(3): 273-83) Nutrition to continue to follow up while inpatient. 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 Found to have R sided occipital ischemic stroke. Not a TPA or aspirin candidate Relevant PMH: s/p bowel resection/colectomy d/t toxic megacolon, Cdiff, Bilateral PE, hx paroxysmal AFIB, 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 Significant 24 hour events: 11/17 PM: Afebrile, VSS on RA. Telemetry d/c'ed. Q 6 hr neuro checks unchanged. Ostomy w/ heme +liquidstool, see I/O flowsheet. Continues on scheduled Loperamide. Continuous IVF completed. Sleeping in between care. 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 Found to have R sided occipital ischemic stroke. Not a TPA or aspirin candidate Relevant PMH: s/p bowel resection/colectomy d/t toxic megacolon, Cdiff, Bilateral PE, hx paroxysmal AFIB, 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 Significant 24 hour events: 11/17 AM: Afebrile, VSS on RA. Telemetry monitoring continued - NSR-ST. Q6 hour neuro checks unchanged. Mild mucositis pain continues, refusing PRN pain meds, able to take all PO meds without issue, still with poor appetite, encouraged po intake, LR 1 liter bolus administered. Shake given for dinner. Ambulated in hallway today with FWW, continues to feel very fatigued. Urine sample obtained - see results review. 2g mag replaced. Repeat BMP drawn at 1500 - see results. Pt started on continuous IVF. 11/16 PM: HR 90's-130's w/PAC's overnight, increases w/ambulation. Telemetry cont's - SR/ST. Q 6 hr neuro checks unchanged. Ostomy w/+ flatus & liquid stool, see I/O flowsheet. Continues on scheduledLoperamide. Sleeping in between care. Baseline Weight: 107.1 kg AM weight: 98.8 kg PM weight: 98.5 kg Action List Q6 neuro checks - notifiy of any new changes IV Daptomycin for bacteremia Ostomy care, monitor output Telemetry Encourage po intake Encourage ambulation/up to chair Discharge Plan: Possibly Saturday 11/18; BMT discharge teaching completed House cleaning almost complete. Pt would like outpatient PT if possible. Caridad Jacques, [facility] - 11/17/2021 2:56 PM EDT Clinical Pharmacist Allogeneic Stem Cell Transplant - Medications PATIENT ID: Luis Manuel Mobley Jr. is a 61 y.o. 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 The patient received conditioning with Fludarabine/Moderate-dose Busulfan/Rabbit ATG. The following information was reviewed with the patient. Day 0 = 10/22/21 Antimicrobial agents: Generic Name Brand Name Type of Drug Dose Duration Acyclovir Zovirax?? Antiviral 800 mg twice daily 1 year Fluconazole Diflucan?? Antifungal 400 mg once daily Until off immunosuppression Sulfamethoxazole/ trimethoprim Bactrim DS?? Antibacterial 1 tablet by mouth once on Thursday, Thursday, and Thursday Starting day +30 until off immunosuppression Possible Side Effects include, but are not limited to: Acyclovir (Zovirax??): The most common potential side effects include: nausea, vomiting, diarrhea, fever, rash, and headache. Fluconazole (Diflucan??): The most common potential side effects include: nausea, vomiting, diarrhea, and headaches. Avoid grapefruit or grapefruit juice. Sulfamethoxazole/trimethoprim (Bactrim DS??): The most common potential side effects include anemia (low number of red blood cells), low number of white blood cells, and sensitivity to sunlight, skin rash, dizziness, headache, nausea, vomiting, diarrhea, and loss of appetite. Immunosuppressive agents: Graft versus host disease (GVHD) - Occurs when the donor's cells recognize your tissues and organ asforeign and ???attacks?? them. Over time, and with the help of medications to suppress the new immune system, the immune system will accept your body and stop attacking it. The most common sites for GVHD are GI tract, liver, skin, and lungs Generic Name Brand Name Type of Drug Dose Duration Tacrolimus Prograf?? Immunosuppressive Dose TBD on discharge Your dose may change based on levels or drug interactions At least until day +90 followed by a taper Laboratory Tests: Luis Manuel Mobley Jr. will have Tacrolimus level drawn weekly. Provider Visits: Luis Manuel Mobley Jr. will see either his physician or nurse practitioner during outpatient follow up visits Possible Side Effects include, but are not limited to: Tacrolimus (Prograf??): The most common potential side effects include: increased blood pressure, increased blood glucose, tremors, headaches, nausea, vomiting, diarrhea, increased risk of infections, increased potassium level, low magnesium level. Your doctor may prescribe supplements for low potassium and low magnesium. Magnesium plus protein is a chelated formulation that has less side effects such as diarrhea. Luis Manuel Mobley Jr. was instructed that on the days when their tacrolimus level is being drawn, do NOT take the morning dose. Make sure they bring them to clinic with them so that they can take it after their blood sample has been drawn and sent to lab. Plan: Luis Manuel Mobley Jr. was instructed to: ??? Allow time to rest and get enough sleep ??? Utilize proper hand hygiene techniques and have others wash their hands to prevent infection ??? Take their medications as prescribed ??? If they miss a dose of their medicine, don't panic. Take it as soon as they remember. However, if it is almost time for their next dose, skip the missed dose and return to their regular medicine schedule. ??? Do not take their morning dose of Tacrolimus on the day their Tacrolimus level is drawn. Make sure to bring the medication with them to clinic so that they can take it after their blood sample has been drawn ??? Take their temperature every day after discharge. Call their doctor if your temperature is 100.4?F or higher ??? Protect their skin from direct sun exposure. Avoid direct sunlight between 10:00 AM and 4:00 PM because that is when the sun is at its peak. Wear a hat, sunglasses, and sunscreen with an SPF 30 or higher when you are outside in the sun ??? Follow up: Clinic appointment is scheduled on 11/25/21 The patient understands that they may be on some of the same medications they were on prior to transplant but the doses may have changed as some doses need to be higher after transplant Caridad Jacques RPH 11/17/21 2:56 PM 20 of this 30 minute face to face encounter was spent in counseling and education Luis Manuel Goodrich Jr., MD - 11/17/2021 2:24 PM EDT BMT /??HEMATOLOGY STAFF NOTE? I have independently interviewed and examined this patient and have personally reviewed the relevantclinical, laboratory and radiological data with the housestaff on rounds. Please refer to the comprehensive progress note above, with which I concur. I have reviewed and endorse the plan as outlined and have made any additions/corrections below. This patient meets criteria for inpatient level of care based on the above medical complexity.? 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 Pretransplant course marked by dev't of C difficile colitis with toxic megacolon, s/p [id number], with ostomy, then dev't of SU[employer] disease that??was??cleared??prior to SCT. ? Luis Manuel was found to have word finding difficulties??on 11/10, then noted per imaging to manifest a??small??Rt occipital??ischemic stroke.?The most likely explan'n??was??felt to be a??missed flecainide dose (x1-2) in??the??setting of intermittent (paroxysmal) Afib. Hwvr, we also performed a cardiac work up??(TTE with bubble study) to further assess pot'l etiologies, and this was??unrevealing. While hecontinues to manifest a mild right-sided facial droop and rt-sided weakness, he is ambulating on theward without difficulty, and his transient aphasia has entirely resolved, without any other significant residual deficits.? Luis Manuel is now??day +26??today and overall doing well, though he now manifests an STACIE, felt d/t a pre-renal component and potentially a Tac effect (trough level pending on 11/18). He was given a 1L IVF bolus on 11/16, with minimal effect, so we are increasing this today, with a recheck this afternoon. WBC intact after d/c of GCSF, and we are still awaiting platelet engraftment. Lovenox restarted for DVT ppx. On Tac 1, 1.5 mg and await 11/18 Tac trough. Completing Daptomycin (due to finish on 11/17). Tentative discharge planned for 11/18. Plan to d/c picc line prior to discharge (likely 11/18) With wt down, mild rise in creatinine, borderline high K+ and degree of insensible losses from ostomy site, will give 1L IVF bolus today. ?? Updated Plan: #??Mucositis -??much improved since engraftment - resolved - eating more (increasing solids)?# ID/VRE bacteremia?-??Afebrile since 11/04?- completes Dapto (for Enterococcus bacteremia) on 11/17 -??Enterococcus??noted on BCx from 11/02; Repeat Cx on 11/03 growing GPC and Corynebacterium.??ECHO??-no vegetations.? -??cefepime??d/c'd once anc >500;??daptomycin??per ID ->??dapto to be completed on 11/17 (Sun) ? - On Acyclovir and fluconazole ppx??; On oral Vanc for C. Diff ppx? # GVHD ppx?? - On Tacrolimus 0.5 mg IV q12h ? -??Tac level 11/07??- 9.8; 7.8 on 11/11 ?? - Tac changed??to oral dosing (11/13), with updated trough due on 11/18?? - plan to recheck Tac trough on oral dose schedule (11/18) prior to??pot'l??discharge ?? # VOD ppx - on Ursodiol ; ??-??lovenox prev'ly held for increased oral bleeding from mucositis -> restarted on 11/16? # GI , Ostomy - ??C. Diff neg. ?? -?On prn imodium for increased out put ? # Disposition - potential discharge on 11/18 after change to oral meds, completion of Dapto and documentation of Tac trough level on oral dose schedule.?? - pot'l barriers to 11/18 discharge -> 1) Tac trough level on oral dosing and 2) STACIE status 3) platelet count (lagging behind granulocyte engraftment, as anticipated); Luis Manuel is aware??of pot'l delays. - PICC LINE WILL NEED TO BE PULLED PRIOR TO DISCHARGE ? I reviewed??his??situation and our plans with the team, RN and pt on rounds today.? Central Venous Access Statement of Need?? Tunneled catheter - clean dry intact site? Can the central IV access be removed?[?Yes?[x ] No?[ ] N/A?? If no, reason for central access:? [X]?Stem cell transplant patient or AML induction? TACHO Goodrich MD Heme/Onc Section?? Yvette Pichardo RN - 11/17/2021 7:12 AM EDT Illness Severity [x] Stable [] Watcher [] Unstable Patient Summary Reason for admission: Day +26 (11/17) of MUD allo SCT for high-risk (FLT3+) AML conditioned with Flu/Bu/ATG/MTX 11/02: Positive blood cultures VRE 11/03: positive blood cultures (+ gram rods) 11/10: Stroke alert called 2/2 word finding difficulty, disorientation, unable to follow commands. Found to have R sided occipital ischemic stroke. Not a TPA or aspirin candidate Relevant PMH: s/p bowel resection/colectomy d/t toxic megacolon, Cdiff, Bilateral PE, hx paroxysmal AFIB, 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 Significant 24 hour events: 11/16 AM: Afebrile, VSS on RA. Telemetry monitoring continued - NSR-ST. Q6 hour neuro checks unchanged. Mild mucositis pain continues, refusing PRN pain meds, able to take all PO meds without issue, still with poor appetite, encouraged po intake, LR 1 liter bolus administered. Weight significantly belowbaseline. Girlfriend visiting, BMT discharge teaching completed, house cleaning is almost complete. Encouraged po intake, ambulation and up to chair today, did ambulate in hallway today with FWW, continues to feel very fatigued, sleeping between care. 11/16 PM: HR 90's-130's w/PAC's overnight, increases w/ambulation. Telemetry cont's - SR/ST. Q 6 hr neuro checks unchanged. Ostomy w/+ flatus & liquid stool, see I/O flowsheet. Continues on scheduledLoperamide. Sleeping in between care. Baseline Weight: 107.1 kg AM weight: 98.8 kg PM weight: Action List Q6 neuro checks - notifiy MD of any new changes IV Daptomycin for bacteremia Ostomy care, monitor output Telemetry Encourage po intake Encourage ambulation/up to chair Discharge Plan: Possibly Saturday 11/18; BMT discharge teaching completed House cleaning almost complete. Pt would like outpatient PT if possible. 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 Found to have R sided occipital ischemic stroke. Not a TPA or aspirin candidate Relevant PMH: s/p bowel resection/colectomy d/t toxic megacolon, Cdiff, Bilateral PE, hx paroxysmal AFIB, 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 Afebrile, VSS on RA. Telemetry monitoring continued - NSR-ST. Q6 hour neuro checks unchanged. Mild mucositis pain continues, refusing PRN pain meds, able to take all PO meds without issue, still with poor appetite, encouraged po intake, LR 1 liter bolus administered. Weight significantly below baseline. Girlfriend visiting, BMT discharge teaching completed, house cleaning is almost complete. Encouraged po intake, ambulation and up to chair today, did ambulate in hallway today with FWW, continues to feel very fatigued, sleeping between care. Action List Q6 neuro checks - notiflaura STEPHENSON of any new changes IV Daptomycin for bacteremia Ostomy care, monitor output Telemetry Encourage po intake Encourage ambulation/up to chair Luis Manuel Goodrich Jr., MD - 11/16/2021 11:20 AM EDT ?? BMT /??HEMATOLOGY STAFF NOTE? I have independently interviewed and examined this patient and have personally reviewed the relevantclinical, laboratory and radiological data with the housestaff on rounds. Please refer to the comprehensive progress note above, with which I concur. I have reviewed and endorse the plan as outlined and have made any additions/corrections below. This patient meets criteria for inpatient level of care based on the above medical complexity.? 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 Pretransplant course marked by dev't of C difficile colitis with toxic megacolon, s/p [id number], with ostomy, then dev't of SU[employer] disease that??was??cleared??prior to SCT. ? Luis Manuel is now??day +25??today.??He??was found to have word finding difficulties??on 11/10, then noted per imaging to manifest a??small??Rt occipital??ischemic stroke.?The most likely explan'n??was??felt to be a??missed flecainide dose (x1-2) in??the??setting of intermittent (paroxysmal) Afib. Hwvr, wejoseo performed a cardiac work up??(TTE with bubble study) to further assess pot'l etiologies, and this was??unrevealing. ? While Luis Manuel continues to manifest a mild right-sided facial droop and rt-sided weakness, he is ambulating on the [place] without difficulty, and his transient aphasia has entirely resolved, without any other significant residual deficits.? Because of fevers and the neuro acute events??on 11/10, atbx changed to Meropenem, for better gut anaerobic coverage.?As per the recommended plan??from ID, we have since??downgraded atbx??back to Cefepime??based on neg??BCx at 48-72h??post above event.?? WBC trending up mildly after d/c of GCSF, and we are still awaiting platelet engraftment. Lovenox restarted for DVT ppx. On Tac 1, 1.5 mg and await Thu, 11/18 Tac trough. Completing Daptomycin (due to finish on 11/17). Tentative discharge planned for 11/18. Plan to d/c picc line prior to discharge (likely 11/18) With wt down, mild rise in creatinine, borderline high K+ and degree of insensible losses from ostomy site, will give 1L IVF bolus today. ?? Updated Plan: #??Severe mucositis - much improved since engraftment - eating more (increasing solids) ?# ID/VRE bacteremia?-??Afebrile since 11/04?? - completes Dapto (for Enterococcus bacteremia) on 11/17 -??Enterococcus noted on BCx from 11/02; Repeat Cx on 11/03 growing GPC and Corynebacterium.??ECHO??- no vegetations.? - cefepime d/c'd once anc >500; daptomycin??per ID ->??dapto to be completed on 11/17 (Sun) ? - On Acyclovir and fluconazole ppx??; On oral Vanc for C. Diff ppx? # GVHD ppx?? - On Tacrolimus 0.5 mg IV q12h ? -??Tac level 11/07??- 9.8; 7.8 on 11/11 ?? - Tac changed??to oral dosing (11/13), with updated trough due on 11/18?? - plan to recheck Tac trough on oral dose schedule (11/18) prior to??pot'l??discharge ?? # VOD ppx - on Ursodiol ; ??-??D/C??lovenox for increased oral bleeding from mucositis? # GI , Ostomy - ??C. Diff neg. ?? -?On prn imodium for increased out put ? # Disposition - potential discharge on Thu, 11/18 after change to oral meds, completion of Dapto and documentation of Tac trough level on oral dose schedule.?? - pot'l barriers to 11/18 discharge -> 1) Tac trough level on oral dosing and 2) platelet count (lagging behind granulocyte engraftment, as anticipated); Luis Manuel is aware? I reviewed??his??situation and our plans with the team, RN and pt on rounds today.? Central Venous Access Statement of Need?? Tunneled catheter - clean dry intact site? Can the central IV access be removed?[?Yes?[x ] No?[ ] N/A?? If no, reason for central access:? [X]?Stem cell transplant patient or AML induction? TACHO Goodrich MD Heme/Onc Section?? Yvette Pichardo RN - 11/16/2021 5:29 AM EDT Illness Severity [x] Stable [] Watcher [] Unstable Patient Summary Reason for admission: Day +25 (11/16) of MUD allo SCT for high-risk (FLT3+) AML conditioned with Flu/Bu/ATG/MTX 11/02: Positive blood cultures VRE 11/03: positive blood cultures (+ gram rods) 11/10: Stroke alert called 2/2 word finding difficulty, disorientation, unable to follow commands. Found to have R sided occipital ischemic stroke. Not a TPA or aspirin candidate Relevant PMH: s/p bowel resection/colectomy d/t toxic megacolon, Cdiff, Bilateral PE, hx paroxysmal AFIB, 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 Significant 24 hour events: 11/15 AM: Afebrile, VSS on RA. Telemetry monitoring continued - NSR-ST. Q6 hour neuro checks unchanged. Endorsing 4/10 mucositis pain, refusing PRN pain meds, able to take all PO meds without issue. TPN discontinued. Resting between care. 11/15 PM: HR 90's-120's overnight, increases w/ambulation. Telemetry cont's as ordered, SR/ST. Q 6 hr neuro checks unchanged. Ostomy w/+ flatus & liquid stool, see I/O flowsheet. Continues on scheduled Loperamide. Sleeping in between care. Baseline Weight: 107.1 kg AM weight: 99.4 kg PM weight: Action List Q6HWA neuro checks - notifiy of any new changes IV Daptomycin for bacteremia Ostomy care, monitor output Discharge teaching 11/16 Discharge Plan: Thursday? 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 Found to have R sided occipital ischemic stroke. Not a TPA or aspirin candidate OUTCOME EVALUATION NOTE: OUTCOME SUMMARY: Afebrile, VSS on RA. Telemetry monitoring continued - NS-. Q6 hour neuro checks unchanged. Endorsing 4/10 mucositis pain, refusing PRN pain meds, able to take all PO meds without issue. TPN discontinued. Resting between care. PLAN MOVING FORWARD: Q6HWA neuro checks- notifiy of any new changes TPN cyclic IV Daptomycin for bacteremia Ostomy care, monitor output Discharge teaching INDIVIDUALIZED FALL PREVENTION INTERVENTIONS: Patient-specific fall risk factors per assessment: [current deficits]: High fall risk d/t IV therapy, secondary diagnosis, telemetry, generalized weakness Assistance [level of assistance required for transfers and ambulation]: IND (bed alarm refusal) Supervision [direct monitoring required during toileting and ADLs]: IND Surveillance [continuous indirect monitoring]: Masimo, bed alarm refused, room near unit station, call light within reach, purposeful hourly rounding Patient-specific fall prevention interventions for sensory deficits provided, if applicable: CPG GOAL OUTCOME EVALUATION: Claudia Claros RD - 11/15/2021 11:18 AM EDT Nutrition Progress Note Luis Manuel Mobley Jr. is a 61 y.o. 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 Reason for intervention: Follow up Nutrition Recommendations: TPN d/c today per team Monitor po intake - if continues to be poor suggest nutrition support given wt loss Snacks - prn Monitor wt daily Monitor lytes - off TPN Active Orders Diet Neutropenic (BMT) diet Frequency: Effective Now Number of Occurrences: Until Specified Order Comments: No grapefruit products Lab Results Component Value Date NA 138 11/15/2021 K 4.7 11/15/2021 CL 102 11/15/2021 CO2 24 11/15/2021 BUN 30 (H) 11/15/2021 CREATININE 0.95 11/15/2021 ESTGFR 86 11/15/2021 MAGNESIUM 1.05 11/15/2021 CALCIUM 8.6 11/15/2021 PHOS 4.0 11/15/2021 AST 29 11/14/2021 ALT 22 11/14/2021 ALKPHOS 130 11/14/2021 BILITOT 0.3 11/14/2021 BILIDIR 0.1 11/14/2021 TRIG 171 07/13/2021 HA1C 5.8 (H) 11/11/2021 [id number] 1,799 (H) 08/01/2021 SFOLATE 5.6 08/01/2021 IRON [...] Injury Device Sites: O2 sat monitor, IV sites, ECG Leads Other Sites: Ostomy, R DL PICC Relevant medications: BMX prn, imodium, protonix, caphosol, prograf, zofran prn Last Bowel Movement: 11/15/21 Intake/Output Summary (Last 24 hours) at 11/15/2021 1118 Last data filed at 11/15/2021 0811 Gross per 24 hour Intake 402.2 ml Output 3150 ml Net -2747.8 ml Admit Weight: 107.1 kg Estimated body mass index is 32.27 kg/m?? as calculated from the following: Height as of this encounter: 177 cm (5' 9.69). Weight as of this encounter: 101.1 kg (222 lb 14.2 oz). Anton Body Weight: 74.6 kg Usual Body Weight: 235 lbs per pt Wt loss: 13 lbs in ~1 month (5.5% body weight, clinically significant) Wt Readings from Last 10 Encounters: 11/15/21 101.1 kg (222 lb 14.2 oz) 10/15/21 107.8 kg (237 lb 9.6 oz) 10/04/21 107.2 kg (236 lb 6.4 oz) 09/27/21 109 kg (240 lb 6.4 oz) 09/16/21 105.9 kg (233 lb 6.4 oz) 09/12/21 106.6 kg (235 lb) 09/09/21 102.8 kg (226 lb 9.6 oz) 09/05/21 106.8 kg (235 lb 6.4 oz) 08/26/21 102.8 kg (226 lb 9.6 oz) 08/19/21 100.2 kg (221 lb) Patient Vitals for the past 168 hrs: Weight 11/15/21 0631 101.1 kg (222 lb 14.2 oz) 11/14/21 1530 101.2 kg (223 lb 1.7 oz) 11/14/21 0403 101.3 kg (223 lb 5.2 oz) 11/13/21 1540 101.5 kg (223 lb 12.3 oz) 11/13/21 0300 101.3 kg (223 lb 5.2 oz) 11/12/21 1550 101.4 kg (223 lb 8.7 oz) 11/12/21 0440 101.1 kg (222 lb 14.2 oz) 11/11/21 1635 101.3 kg (223 lb 5.2 oz) 11/11/21 0320 100.8 kg (222 lb 3.6 oz) 11/10/21 1711 102.3 kg (225 lb 8.5 oz) 11/10/21 0348 103.1 kg (227 lb 4.7 oz) 11/09/21 1521 104.2 kg (229 lb 11.5 oz) 11/09/21 0132 104.1 kg (229 lb 8 oz) 11/08/21 1640 104.4 kg (230 lb 2.6 oz) Assessment: Estimated needs: Calories: 1865 (25 kcal/kg IBW) Protein: 89-112 grams (1.2-1.5 g/kg IBW) Nutrition Focused Physical Exam (NFPE): Performed on 10/28/21. Subcutaneous fat loss at Orbital region: None present Upper arm region (triceps/biceps): None present Thoracic and lumbar region (ribs, lower back and maxillary line): Not assessed Lean muscle loss to Orthodoxy region (temporalis muscle): None present Clavicle bone region (pectoralis major): None present Dorsal hand (interosseous muscle): None present Shoulder (deltoid): None present Scapular bone region (latissimus dorsi, trapezius muscles): Not assessed Thigh region (quadriceps muscle): None present Posterior calf region (gastrocnemius muscle): None present Fluid accumulation: Not assessed Nutrition intake and intake history/Interview: Luis Manuel continues to report a minimal appetite, had someapplesauce this morning (50kcal, 1g protein). He reported yesterday he had some oatmeal with grapes for breakfast, no lunch, and ~50% of the turkey dinner (total for day: 330kcal and 13g protein). He continues to report pain with swallowing, although improving. He reported he feels that his tongue feels the worst which is affecting his ability to taste and contributing to lack of appetite. Declined to set up snacks again at this time. Continue to encourage good po intake, currently eating <25% ofestimated needs. 11/13: At time of visit, pt eating hard boiled eggs for breakfast. He reported he did not eat breakfast or lunch yesterday, had soup for dinner. He reported mucositis is improving, although he is still primarily eating softer foods. He is no longer eating the snacks from dietary, will d/c. TPN switchedto cyclic today. Protein-calorie Malnutrition: Not enough data to assess (Cameron JPEN J Parenteral Enteral Nutr. 2011; 36(3): 273-83) Nutrition to continue to follow up while inpatient. Thank you, Claudia J Claros, RD Pager #:[phone] Aruna Saunders RN - 11/15/2021 11:17 AM EDT Per IDR patient would like to continue his physical [place]. [place] patient he would like a referral sent to: [facility] [address] [place] [id number] Order prepped and medical team made aware of need for signature. RNCM will continue to follow and assist with discharge planning. Luis Manuel Goodrich Jr., MD - 11/15/2021 7:38 AM EDT Images from the original note were not included. Inpatient Hematology/Oncology/SCT Progress Note Patient info: Name: Luis Manuel Mobley Jr. : 1960 PCP: LEISA Munguia PCP phone number: [phone] Date of Admission: 10/15/2021 ( Hospital Day 31 days ) Service: Hem/Onc Team A pg [phone] (09/03) Responsible Attending:Luis Manuel Goodrich Jr., MD ID: Luis Manuel Mobley Jr. is a 61 y.o. Male with hx of paroxysmal Afib, c diff colitis c/b toxic megacolon s/p bowel resection and colostomy in may 2021, FLT3+ AML with positive [employer] disease??s/p CR w/ 7+3+Midostaurin c/b relapse tx w ventoclax + gilteritinib (held since 10/08) most with pre-transplant BM and LP showing FELY, admitted for MUD allo HSCT.Today is day +24 (day 0 is 38), getting daptomycin and meropenem for VRE bacteremia. Baseline weight: 107.1kg Donor: MUD ABO: Donor O negative, recipient O positive HLA: 05/26 ID status: Donor and recipient both CMV negative Conditioning regimen: fludarabine, busulfan GVHD regimen: Rabbit ATG, methotrexate, tacrolimus 24 Hour Events: - Yesterday, q6h neuro checks unchanged, refuse prn pain meds, able to take all po meds, - Overnight, HR 80-100s at rest, tachy 130s with movement, tolerate all po meds, - This AM, reports able to eat 1/3 of turkey dinner and some spaghetti for dinner - VSS, Weight 101.3kg -> 101.1kg - In/Out not accurate: no intake or TPN recorded overnight, stool output 825ml - no transfusion need today Vitals: Last value Range last 24 hrs Temperature Temp: 37.1 ??C (98.7 ??F) Temp: [36.8 ??C (98.2 ??F)-37.7 ??C (99.9 ??F)] Heart Rate Heart Rate: (!) 102 Heart Rate: [95-102] Blood Pressure BP: 135/84 BP: (124-138)/(74-84) Respiratory Rate Resp: 19 Resp: [17-22] SpO2 SpO2: 94 % SpO2: [90 %-99 %] Intake/Output Summary (Last 24 hours) at 11/15/2021 0738 Last data filed at 11/15/2021 0356 Gross per 24 hour Intake 625.2 ml Output 3000 ml Net -2374.8 ml Patient Vitals for the past 168 hrs: Weight 11/15/21 0631 101.1 kg (222 lb 14.2 oz) 11/14/21 1530 101.2 kg (223 lb 1.7 oz) 11/14/21 0403 101.3 kg (223 lb 5.2 oz) 11/13/21 1540 101.5 kg (223 lb 12.3 oz) 11/13/21 0300 101.3 kg (223 lb 5.2 oz) 11/12/21 1550 101.4 kg (223 lb 8.7 oz) 11/12/21 0440 101.1 kg (222 lb 14.2 oz) 11/11/21 1635 101.3 kg (223 lb 5.2 oz) 11/11/21 0320 100.8 kg (222 lb 3.6 oz) 11/10/21 1711 102.3 kg (225 lb 8.5 oz) 11/10/21 0348 103.1 kg (227 lb 4.7 oz) 11/09/21 1521 104.2 kg (229 lb 11.5 oz) 11/09/21 0132 104.1 kg (229 lb 8 oz) 11/08/21 1640 104.4 kg (230 lb 2.6 oz) Exam: GENERAL:?appeared in no acute distress, no delay in response, answering all questions MOUTH: improving mucositis CARDIOVASCULAR:??rrr no mrg PULMONARY:??CTAB on RA, no increased wob GASTROINTESTINAL:??Abdomen soft nontender to palpation w +BS. Colostomy with semi-solid brown stool in place. SKIN:??bilateral petechial rash on BLEs, improving EXT: no Edema at ankles NEUROLOGICAL:??no focal deficit Medications: Scheduled Meds: ??? tacrolimus 1 mg Oral Nightly ??? tacrolimus 1.5 mg Oral Daily ??? pantoprazole EC 40 mg Oral Daily ??? fluconazole 400 mg Oral Daily ??? acyclovir 800 mg Oral BID ??? loperamide 2 mg Oral BID ??? DAPTOmycin 10 mg/kg/dose (Adjusted) Intravenous Q24H ??? metoprolol succinate XL 50 mg Oral Daily ??? ursodiol 300 mg Oral Daily with breakfast ??? ursodiol 600 mg Oral Daily with dinner ??? gabapentin 200 mg Oral TID ??? sodium chloride 0.9 % (flush) 5 mL Intravenous BID ??? vancomycin 125 mg Oral BID ??? flecainide 50 mg Oral BID ??? supersaturated calcium phosphate 30 mL Oral 4 Times Daily ??? [START ON 11/21/2021] sulfamethoxazole-trimethoprim DS 1 tablet Oral Daily Continuous Infusions: ??? TPN Adult Stopped (11/15/21 0632) PRN Meds:.cxkpjjugw-qqxtoblsj-ro-mag-sim, morphine, lidocaine, sodium chloride 0.9 % (flush), magnesium sulfate, magnesium sulfate, potassium chloride, potassium chloride ER, potassium chloride ER, acetaminophen, camphor-menthoL, loperamide, alum-mag hydroxide-simeth, calcium carbonate, sucralfate, fur osemide, furosemide, sodium chloride 0.9 % (flush), lidocaine, LORazepam, ondansetron, prochlorperazine, heparin, porcine, sodium chloride 0.9 % (flush) Labs: Recent Labs 11/15/21 0345 11/14/21 0420 11/13/21 0325 11/12/21 0350 11/10/21 1223 11/10/21 0335 WBC 9.9* 8.9 9.4 7.2 < > 0.4* HGB 8.1* 8.0* 8.0* 8.0* < > 7.0* HCT 23.5* 23.0* 23.1* 22.8* < > 20.0* PLATELET 13* 11* 12* 16* < > 17* NEUTROABS -- 5.16 -- 4.78 -- 0.18* < > = values in this interval not displayed. Recent Labs 11/15/2134411/14/21 0420 11/13/21 0325 NA 138 140 137 K 4.7 4.8 3.8 CL 102 102 99 CO2 24 25 26 BUN 30* 27* 24* CREATININE 0.95 0.93 0.95 Recent Labs 11/15/21 0345 11/14/21 0420 11/13/21 0325 CALCIUM 8.6 8.5 8.4* MAGNESIUM 1.05 1.18* 0.98 PHOS 4.0 3.6 2.8 Recent Labs 11/14/21 0420 11/11/21 0350 AST 29 32 ALT 22 29 ALKPHOS 130 124 BILITOT 0.3 0.4 BILIDIR 0.1 0.2 No results for input(s): INR, PT, PTT in the last 72 hours. Microbiology: BCx 11/05: NGTD BCx 11/03: 1/2 Corynebacterium species, likely contaminant BCx 11/02: VRE UA 11/03: unremarakble BCx 10/20: NGTD UA 10/20: does not look infectious Microbiology Results (Last 30 days) Procedure Component Value Units Date/Time Blood culture [[id number]] Collected: 11/10/21 1421 Lab Status: Preliminary result Specimen: Blood Updated: 11/14/21 2302 Blood Culture No growth at 4 days. Blood culture [[id number]] Collected: 11/10/21 1314 Lab Status: Preliminary result Specimen: Blood Updated: 11/14/21 1501 Blood Culture No growth at 4 days. C. Difficile Screen [[id number]] Collected: 11/09/21 1440 Lab Status: Final result Specimen: Stool Updated: 11/09/21 1548 C Diff Screen Negative Comment: Ag/Tox Neg C. diff?? Negative Clostridium difficile is not present in the specimen. If patient is having diarrhea suspected to be from an infectious cause, then Soap & Water Contact Precautions are still required. Blood culture [[id number]] Collected: 11/09/21 0428 Lab Status: Final result Specimen: Blood Updated: 11/14/21 0701 Blood Culture No growth at 5 days. Blood culture [[id number]] Collected: 11/09/21 0410 Lab Status: Final result Specimen: Blood Updated: 11/14/21 0701 Blood Culture No growth at 5 days. Blood culture [[id number]] Collected: 11/06/21 1224 Lab Status: Final result Specimen: Blood from Hand, Left Updated: 11/11/21 1501 Blood Culture No growth at 5 days. Blood culture [[id number]] Collected: 11/06/21 1218 Lab Status: Final result Specimen: Blood from Antecubital, Left Updated: 11/11/21 1501 Blood Culture No growth at 5 days. Blood culture [[id number]] Collected: 11/05/21 0935 Lab Status: Final result Specimen: Blood from Hand, Left Updated: 11/10/21 1501 Blood Culture No growth at 5 days. Blood culture [[id number]] Collected: 11/05/21 0928 Lab Status: Final result Specimen: Blood from Arm, Left Updated: 11/10/21 1501 Blood Culture No growth at 5 days. Blood culture [[id number]] Collected: 11/03/21 0408 Lab Status: Final result Specimen: Blood Updated: 11/08/21 0701 Blood Culture No growth at 5 days. Blood culture [[id number]] (Abnormal) Collected: 11/03/21 0356 Lab Status: Final result Specimen: Blood Updated: 11/08/21 0706 Blood Culture -- Corynebacterium species isolated : Interpretation of the importance of skin mitzy such as Coagulase Negative Staph, Viridans Strep, Corynebacteria and other Gram Positive organisms from a single Blood Culture set requires clinical correlation. Gram Stain Aerobic -- Note: This is a corrected report Growth detected in aerobic bottle. Gram Positive Rods seen Previously reported as: Gram Positive Cocci seen Results called to and read back by Denise Madera RN at 11/06/21 10:57:10 Blood culture [[id number]] (Abnormal) (Susceptibility) Collected: 11/02/21 1018 Lab Status: Final result Specimen: Blood Updated: 11/05/21 1124 Blood Culture -- Enterococcus faecium isolated * VRE, Vancomycin Resistance * Isolate saved. If future testing is required, contact the Microbiology Industrial Organizational Psychologist. Gram Stain Aerobic -- Growth detected in aerobic bottle. Gram Positive Cocci in pairs seen Gram Stain Anaerobic -- Growth detected in anaerobic bottle. Gram Positive Cocci in pairs seen Results called to and read back by Radha Marmolejo 11/03/21 02:42:51 VMartin Susceptibility Enterococcus faecium MICROSCAN METHOD Ampicillin Resistant Erythromycin Resistant Gentamicin 500 Sensitive Linezolid Sensitive Penicillin Resistant Vancomycin Resistant Linear View Blood culture [[id number]] (Abnormal) Collected: 11/02/21 1018 Lab Status: Final result Specimen: Blood Updated: 11/05/21 1125 Blood Culture -- Enterococcus faecium isolated * VRE, Vancomycin Resistance * Susceptibilities previously reported Gram Stain Anaerobic -- Growth detected in anaerobic bottle. Gram Positive Cocci in pairs seen Gram Stain Aerobic -- Growth detected in aerobic bottle. Gram Positive Cocci in pairs seen C. Difficile Screen [[id number]] Collected: 10/28/21 1207 Lab Status: Final result Specimen: Stool Updated: 10/28/21 1334 C Diff Screen Negative Comment: Ag/Tox Neg C. diff?? Negative Clostridium difficile is not present in the specimen. If patient is having diarrhea suspected to be from an infectious cause, then Soap & Water Contact Precautions are still required. Blood culture [[id number]] Collected: 10/20/21 173 Lab Status: Final result Specimen: Blood Updated: 10/25/21 2301 Blood Culture No growth at 5 days. Blood culture [[id number]] Collected: 10/20/21 173 Lab Status: Final result Specimen: Blood Updated: 10/25/21 2301 Blood Culture No growth at 5 days. Blood culture [[id number]] Collected: 10/19/21 1139 Lab Status: Final result Specimen: Blood from Antecubital, Left Updated: 10/24/21 1501 Blood Culture No growth at 5 days. Blood culture [[id number]] (Abnormal) Collected: 10/19/21 1133 Lab Status: Final result Specimen: Blood from Hand, Right Updated: 10/25/21 0910 Blood Culture -- Coagulase negative Staphylococcus species detected by PCR Interpretation of the importance of skin mitzy such as Coagulase Negative Staph, Viridans Strep, Corynebacteria and other Gram Positive organisms from a single Blood Culture set requires clinical correlation. Gram Stain Aerobic -- Growth detected in aerobic bottle. Gram Positive Cocci in clusters seen C. Difficile Screen [[id number]] Collected: 10/19/21 1020 Lab Status: Final result Specimen: Stool Updated: 10/19/21 1607 C Diff Screen Negative Comment: Ag/Tox Neg C. diff?? Negative Clostridium difficile is not present in the specimen. If patient is having diarrhea suspected to be from an infectious cause, then Soap & Water Contact Precautions are still required. COVID-19 PCR [[id number]] Collected: 10/19/21 0405 Lab Status: Final result Specimen: Nasopharyngeal Swab Updated: 10/19/21 1834 SARS-CoV-2 RNA Not Detected Comment: This result should be interpreted in combination with the clinical observations, patient history and epidemiological information in making a final diagnosis. For testing of asymptomatic individuals, assay performance characteristics and clinical utility have not been evaluated. Testing for SARS-CoV-2 (Severe acute respiratory syndrome coronavirus 2, formerly known as 2019 novel coronavirus or 2019-nCoV) to aid in the diagnosis of COVID-19 is performed using the [employer] m SARS-CoV-2 Assay as authorized by the FDA Emergency Use Authorization (EUA). This EUA assay is intended for In-vitro Diagnostic (IVD) use with respiratory specimens such as nasopharyngeal swabs collected from individuals during the acute phase of infection. This assay is performed based on the instructions for use provided by [employer] and additional guidance provided by CDC and FDA. Testing is performed in the [facility] within the Department of Pathology and Laboratory Medicine at [facility], certified under the Clinical Laboratory Improvement Amendments of 1988 (CLIA), 42 U.S.C. 263a, to perform high complexity tests. Assay performance has been verified according to clinical laboratory regulatory requirements for use with specimens collected from individuals suspected of COVID-19. Test results are provided above. A result of Not Detected indicates that the viral RNA target is not present above the limit of detection, but does not preclude SARS-CoV-2 infection. False negative results may occur if a specimen is improperly collected, transported or handled; if amplification inhibitors are present; or if inadequate numbers of viral particles are present in the specimen. When a diagnostic test is negative, the possibility of a false negative result should be considered in the context of a patient's recent exposures and the presence of clinical signs and symptoms consistent with COVID-19. A result of Detected indicates that RNA from SARS-CoV-2 was detected and the patient is infected. As required or requested by public health authorities, positive specimens may be sent for additional testing. Positive and negative predictive values for this test are highly dependent on disease prevalence. A result of Invalid indicates that neither the viral RNA targets nor the internal control target was detected. An invalid result suggests the presence of inhibitors. Recollection and re-testing is recommended in the case of an invalid result. CDC COVID-19 criteria for testing on human specimens and clinical management guidance information are available at the CDC Coronavirus Disease 2019 (COVID-19) webpage under Information for Healthcare Professionals (https://www.cdc.gov/coronavirus/2019-ncov/hcp/index.html) Additional information about this and other EUA tests can be found in provider and patient fact sheets at the following FDA website: https://www.fda.gov/medical-devices/nzmgrtozpgd-asafyuh-0284-euwic-88-eiwodsfah- wpu-dswfzltpnszaay-zmrxwcc-devices/lggmk-xmntmddhkjm-hzlb SARS-Cov-2 RNA Source ULTRASOUND SPEC Swab Pertinent radiology/diagnostic studies: MRI Brain 11/10: Punctate acute infarct in the posterolateral right frontal lobe subcortical white matter, without acute hemorrhage. CT A/P w contrast 11/03 ?? IMPRESSION ?? 1. Ill defined opacities in lingula may represent pneumonia. Consider follow-up chest x-ray if indicated. 2. No abdominal or pelvic abscess seen. 3. Hiatal hernia with fat stranding around a thick walled and dilated distal esophagus. Finding may represent esophagitis. 4. Resolution of splenomegaly. 5. No enlarged abdominal and pelvic lymph nodes. 6. No abdominal or pelvic ascites. CXR 11/04 ?? IMPRESSION Radiographically the left basilar airspace opacity seen on 11/02/2021 has resolved and findings are now similar compared to a radiograph from 10/19/2021. However, it is uncertain to which extent the mild opacities seen on CT 11/03/2021 still persist or have resolved (due to difference in technique). ?? Within the limitation of single frontal view the change in positioning of the left subclavian central venous catheter in comparison to 10/19/2021 is due to the fact that the tip has flipped into the azygos vein (unchanged to 11/02/2021). Please correlate clinically if functionalityof this catheter remains adequate. TTE 11/06 1. There are no vegetations seen on this study, if clinical suspicion for endocarditis remains, consider OLEKSANDR for further evaluation 2. Left ventricle is normal in size. LVEF is estimated at 64% by biplane. There are no wall motion abnormalities. 3. Right ventricle is milldly dilated with normal systolic function. 4. There is no pericardial effusion. TTE w bubble 11/11 Left ventricular systolic function is normal. The left ventricular ejection fraction is 67% by Tony's biplane. There are no segmental wall motion abnormalities. The left atrium is normal. There is no evidence for a patent foramen ovale. There is no evidence for a patent foramen ovale visualized with agitated saline. No significant valvular abnormalities. The aortic root at the level of the sinuses of Valsalva is mildly dilated. 3.8 cm. The ascending aorta is mildly dilated. 3.7 cm. Other details as noted below. ?? ASSESSMENT/PLAN: Luis Manuel Mobley Jr. is a 61 y.o. 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 now day + 24 (day 0 is 10/22) for MUD HSCT. Tolerated stem cell infusion well on 10/22, had some rigors and nausea post- infusion that resolved with medications. Counts remain low. Neutropenic fever on 11/02, cefepime escalated to zosyn, and then todaptomycin and cefepime after 1 day when BCx positive for VRE. TTE on 10/09 with no vegetation. Tunneled line removed 11/05. Plan for total of 2 weeks of daptomycin from 1st neg BCx until 11/17. Unfortunately, re-fevered on 11/10 during stroke event, prompting escalation of abx to meropenum, which was discontinued after 2 days when BCx showed no growth and pt's ANC > 500. Patient's high ostomy output (2-3L per day) initially improved with scheduled imodium. Lovenox stopped on 11/02 due to heme positive stool and severe mucositis, restarted on 11/07, and stopped on 11/08. For mucositis, on bmx, viscous lidocaine, morphine scheduled (dilaudid causes nausea). Started TPN on 10/31 (day +9) and ended on day +24. Was on IV meds, which was transitioned back to po meds as counts improving. Patient was found to have an acute ischemic stroke on 11/10 after noted to be having word finding difficulty, likely embolic from A. Fib w rvr when unable to take flecanide. Neurology consulted. Will hold off starting rousuvastatin because on daptomycin. On Tele. Mental status improving, back to baseline. For his bilateral feet neuropathy, will continue gabapentin to 200mg TID as tolerated Summary Plan: - continue tac at 1mg PM, and 1.5mg PM - Stop TPN - restart lovenox for dvt ppx - continue daptomycin until 11/17 - tacrolimus level Thursday and - f/u Thursday EBV every 2 weeks - plan to discharge on 11/18 - plan to start bactrim in clinic Plan: #Ischemic Stroke - Hemorrhagic stroke ruled out with CTA Head - R occipital lesion identified - MRI brain acute infarct in the posterolateral right frontal lobe - Permissive hypertension for now - Not a TPA candidate per neurology - neurology following - will start aspirin when counts improve - will start rousuvastatin when off daptomycin #VRE bacteremia #Neutropenic fever - likely from gut translocation from mucositis - abx: - cefepime 10/19 - 11/02, 11/03 - 11/10 - Meropenum 11/10 - 11/12 - zosyn 11/02 - daptomycin 11/02 - 11/17 - BCx 11/03: 1/2 Corynebacterium species (likely contaminant) - BCx 11/05 NGTD - OLEKSANDR 11/06 no vegetation - BCx 11/10: NGTD #STACIE, pre-renal, improving - pre-renal, noted on 10/27 - s/p 1L Bolus on 10/27 and 10/28, encourage imodium to thicken ostomy output - mIVF (10/29 -> 11/01) - continue to monitor, on TPN so no IVF #AML #MUD HSCT Day (-7): Fludarabine: Day (-6): Fludarabine, Busulfan, Rabbit ATG: Day (-5): Fludarabine, Busulfan, Rabbit ATG: Day (-4): Fludarabine, Busulfan, Rabbit ATG: Day (-3): Fludarabine, Busulfan: Day (0): Stem Cell Infusion: Day (+1): metHOTREXate: Day (+3): metHOTREXate: Day (+6): metHOTREXate: Day (+11): metHOTREXate: General - q4h vitals - strict Is/Os 2x daily - weigh patient 2x daily, notify provider if weight increases by 1kg or more in 12 hour period ?- lasix 20mg IV prn weight gain >1 kg above admission baseline ?- lasix 20mg IV for weight gain 1 kg over 12 hours or input exceeding output by greater than 1,000 ml/12h - neutropenic precautions - incentive spirometry q2h while awake - activity as tolerated - electrolyte replacement - not checking CMV b/c both recipient and donor are CMV negative - check EBV every 14 days until day +100 (01/24/22) Chemotherapy/Support - Busulfan 204mg??day (-6) to day (-3) -??Fludarabine??61??mg 102ml infusion once over 30 minutes day -7 Then every 24 hours at 0900 for 4 doses day (-6) to day (-3) - Rabbit ATG??124.8mg over 10 hours day (-6), 166.4mg on day (-5) 208??on day (-4).?? - Day 0 stem cell infusion. Premedicate with acetaminophen 650mg, diphenhydramine 50mg) - Methotrexate??10mg??day (+1), day (+3), day (+6), day (+11). Hold for serum creatinine >2, bilirubin >5, fluid accumulation (large effusion or ascites), severe mucositis if potential need for intubation. - filgrastim??600mcg qd starting day (+7) until ANC >1500 ?? Laboratory Monitoring - weekly CMV PCR starting day +10, then weekly thereafter - IgG every 2 weeks starting day +1 to day +100 - U/A s/ reflex culture on admission, then daily on days -2, -1, 0? Transfusion parameters - Hgb <??7 - PLT <10, or if febrile??or bleeding??<20 - keep active T&S once hgb <8 ?? Prophylaxis Seizure ppx ?-phenytoin 300 day (-6) through (-) - GI ppx ?- pantoprazole 40mg qd - mucositis ppx ?- supersaturated calcium phosphate oral solution 30ml 4x daily starting on admission until resolution of mucositis and ANC ?>500 - infection ppx ?- fluconazole 400mg qd starting day (0) ?- levofloxacin 750mg qd starting day (0) until ANC >500, changed tocefepime due to fever on 10/19, stopped on 11/12 due to ANC >500 ?- acyclovir 800mg bid starting day (-7) ?- bactrim DS 1 tablet daily from day (-7) through day (2) ?- bactrim DS 1 tablet MWF starting day (30) - GVHD ppx?-??Tacrolimus 1.5mg AM, 1mg PM - dc with MagPro - Started day (-2),?target 5-10 trough - VOD ppx ?- lovenox 40mg qd day (-7) through (30) per Dr. Modi's note, he should continue lovenox 100mg qd until plt apx <40 then switch to VOD ppx dose. ?- ursodiol 300mg qAM??&??qPM day (-7) through day (+30) Hydration - NaCl 0.9% continuous??150ml/hr x??day (-6) ??Through (-3) ?? Pain/Nausea/Appetite - avoid acetaminophen through??day??(-3) - avoid steroid antiemetics - palonosetron 0.25mg day (-6) - aprepitant 130mg day (-6) prior to??busulfan - lorazepam 0.5mg IV q4h prn nausea, anxiety - ondansetron??8mg q8h prn nausea, vomiting beginning day (-3) - prochlorperazine 10mg IV q6h prn nausea, vomiting - use ondansetron >??prochlorperazine or promethazine >??lorazepam >??metoclopramide - olanzapine 5mg qhs starting day (-3) for 5 doses?? - morphine scheduled ?? #Paroxysmal Afib - Continue home metoprolol, flecainide ?? #Hx of provoked PE in Apr 2021 - On lovenox 100mg qd (held prior to central line placement) - Continue until plt reach approximately 40 followed by switch to prophylactic dosing - does not need upon discharge b/c s/p 3 months of AC ?? #Hx of C diff colitis - Continue home PO vancomycin as tolerated - Ostomy care - C. Diff negative 10/28 #Bilateral Feet tingling - pt reports having baseline bilateral feet tingling that was noted to be worsened on on 10/21 (2 daysafter completing 5 days of fludarabine), strength intact, no loss of sensation - start gabapentin 100mg TID (10/21 - 10/23), 200mg TID (10/23 - ) #GERD - takes protonix at home - current regimen: protonix bid, carafate, tums, #Pancytopenia 2/2 to chemo and disease - continue to monitor, transfuse as needed for support #Routine DVT PPx: none due to thrombocytopenia Diet: Neutropenic (BMT) diet Dispo: [place] CODE STATUS: Attempt Cardiopulmonary Resuscitation - Inpatient Stacy Marin MD PGY1 Internal Medicine 11/15/2021 Heme/Onc/BMT Team A Pager #[phone] BMT /??HEMATOLOGY STAFF ADDENDUM? I have independently interviewed and examined this patient and have personally reviewed the relevantclinical, laboratory and radiological data with the housestaff on rounds. Please refer to the comprehensive progress note above, with which I concur. I have reviewed and endorse the plan as outlined and have made any additions/corrections below. This patient meets criteria for inpatient level of care based on the above medical complexity.? 61??year old man??with ??high-risk??(FLT3+)??AML??adm???d on 10/15 for [facility]Q-K[facility] via Flu/Bu/ATG regimen. Pretransplant course marked by dev't of C difficile colitis with toxic megacolon, s/p mna-rvduw-mesnmryxw, with ostomy, then dev't of SU[employer] disease that was cleared prior to SCT. ? Luis Manuel is now day +24??today. He was found to have word finding difficulties??on 11/10, then noted per imaging to manifest a??small??Rt occipital??ischemic stroke.?The most likely explan'n was felt to be a missed flecainide dose (x1- 2) in the setting of intermittent (paroxysmal) Afib. Hwvr, we also performed a cardiac work up??(TTE with bubble study) to further assess pot'l etiologies, and this was unrevealing. ?? While Luis Manuel continues to manifest a mild right-sided facial droop and rt-sided weakness, he is ambulating on the mesa without difficulty, and his transient aphasia has entirely resolved, without any other significant residual deficits. ? Because of fevers and the neuro acute events on 11/10, atbx changed to Meropenem, for better gut anaerobic coverage.?As per the recommended plan from ID, we have since downgraded atbx back to Cefepime based on neg BCx at 48-72h post above event.? Updated Plan: #??Severe mucositis - much improved since engraftment - eating more (increasing solids) ?# ID/VRE bacteremia?-??Afebrile since 11/04?? - completes Dapto (for Enterococcus bacteremia) on 11/17 -??Enterococcus noted on BCx from 11/02; Repeat Cx on 11/03 growing GPC and Corynebacterium.??ECHO??- no vegetations.? - cefepime d/c'd once anc >500; daptomycin??per ID ->??dapto to be completed on 11/17 (Sun) ? - On Acyclovir and fluconazole ppx??; On oral Vanc for C. Diff ppx? # GVHD ppx?? - On Tacrolimus 0.5 mg IV q12h ? -??Tac level 11/07??- 9.8; 7.8 on 11/11 ?? - Tac changed to oral dosing (11/13), with updated trough due on 4/4 - plan to recheck Tac trough on oral dose schedule (11/18) prior to pot'l discharge ?? # VOD ppx - on Ursodiol ; ??-??D/C??lovenox for increased oral bleeding from mucositis? # GI , Ostomy - ??C. Diff neg. ?? -?On prn imodium for increased out put ? # Disposition - potential discharge on Thu, 11/18 after change to oral meds, completion of Dapto and documentation of Tac trough level on oral dose schedule. - pot'l barriers to 11/18 discharge -> 1) Tac trough level on oral dosing and 2) platelet count (lagging behind granulocyte engraftment, as anticipated); Luis Manuel is aware ? I reviewed??his??situation and our plans with the team, RN and pt on rounds today.? Central Venous Access Statement of Need?? Tunneled catheter - clean dry intact site? Can the central IV access be removed?[?Yes?[x ] No?[ ] N/A?? If no, reason for central access:? [X]?Stem cell transplant patient or AML induction? TACHO Goodrich MD Heme/Onc Section?? 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 Found to have R sided occipital ischemic stroke. Not a TPA or aspirin candidate Relevant PMH: s/p bowel resection/colectomy d/t toxic megacolon, Cdiff, Bilateral PE, hx paroxysmal AFIB, 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 Significant 24 hour events: 11/14 PM: Pt is A&Ox4. Neuro checks continued, remain unchanged. TMAX 37.7, afebrile through shift. Tachy into the 130s w/ movement, in the 80-100s at rest. Endorsing 4/10 mucositis pain, but able to tolerate pills well this evening. Declined PRN pain meds and BMX. Cyclic TPN running at 166ml/hr. Ostomy emptied twice overnight. Daptomycin given per OCT. Pt resting between nursing care. 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 Found to have R sided occipital ischemic stroke. Not a TPA or aspirin candidate Relevant PMH: s/p bowel resection/colectomy d/t toxic megacolon, Cdiff, Bilateral PE, hx paroxysmal AFIB, 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 OUTCOME EVALUATION NOTE: OUTCOME SUMMARY: Afebrile, VSS on RA. Telemetry monitoring continued - NSR-ST. Q6 hour neuro checks unchanged. Endorsing 4/10 mucositis pain, refusing PRN pain meds, able to take all PO meds. [place]ro level drawn, 9.3. Cyclic TPN infusing @ 166mL/hr. Ostomy changed today. Mediport de-accessed. Resting between care. PLAN MOVING FORWARD: Monitor VS, I/Os, labs Q6HWA neuro checks- notifiy of any new changes TPN cyclic IV Daptomycin for bacteremia Ostomy care, monitor output INDIVIDUALIZED FALL PREVENTION INTERVENTIONS: Patient-specific fall risk factors per assessment: [current deficits]: High fall risk d/t IV therapy, secondary diagnosis, generalized weakness Assistance [level of assistance required for transfers and ambulation]: IND (bed alarm refusal) Supervision [direct monitoring required during toileting and ADLs]: IND Surveillance [continuous indirect monitoring]: Masimo, bed alarm refused, room near unit station, call light within reach, purposeful hourly rounding Patient-specific fall prevention interventions for sensory deficits provided, if applicable: CPG GOAL OUTCOME EVALUATION: Claudia Claros RD - 11/14/2021 7:51 AM EDT Images from the original note were not included. Nutrition Progress Note Luis Manuel Mobley Jr. is a 61 y.o. 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 Reason for intervention: Follow up and TPN Comments: Cyclic TPN to provide 235g dextrose, 110g protein, and 60g lipid in 2,000mL, 1/2 NS over 12 hours, 166ml/hr. Decreased mag by 2mEq. Decreased K by 15 mEq. Daily BMP with mag and phos please. Weekly LFTs and TG while on TPN. Monitor wt daily I was able to discuss plan with provider Hem/Onc pager #[phone]. Nutrition Support: TPN Medication Recent History (Show up to 3 orders; newest on the left. Changes between the two mostrecent orders are indicated.) Start date and time 11/13/2021 1800 11/12/2021 1800 11/11/2021 1800 TPN Adult [[id number]] TPN Adult [[id number]] TPN Adult [[id number]] Order Status Active Completed Completed Last Admin New Bag at 11/13/2021 1857 by Pati Gilbert RN New Bag at 11/12/2021 180 by Kelsy Mujica RN New Bag at 11/11/2021 1828 by Denise Madera RN Frequency Cyclic (1800) Continuous (1800) Continuous (1800) Additives adult multivitamin 5 mL 5 mL 5 mL adult trace elements Zn-Cu-Mn-Se (Tralement) 0.5 mL 0.5 mL 0.5 mL folic acid 400 mcg 400 mcg 400 mcg Vit K4-A6-V9-B5-B6 (B Complex) 1 mL 1 mL 1 mL Electrolytes potassium phosphate 34 mmol 30 mmol 26 mmol potassium chloride 50 mEq 54 mEq 60 mEq sodium chloride 62 mEq 80 mEq 50 mEq sodium acetate 92 mEq 142 mEq 172 mEq calcium gluconate 8 mEq 8 mEq 8 mEq magnesium sulfate 44 mEq 42 mEq 40 mEq Dextrose dextrose 70% 235 g 235 g 235 g Amino Acids amino acid 15% no.5 (ClinisoL) 110 g 110 g 110 g QS Base sterile water 590.55 mL 1,448.88 mL 1,440.2 mL Lipid fat emulsion (Intralipid) 30 % 60 g 60 g 60 g Energy Contribution Proteins 440 kcal 440 kcal 440 kcal Dextrose 798.97 kcal 798.97 kcal 798.97 kcal Lipids 600 kcal 600 kcal 600 kcal Total 1,838.97 kcal 1,838.97 kcal 1,838.97 kcal Electrolyte Ion Calculated Amount Sodium 154 mEq 222 mEq 222 mEq Potassium 99.87 mEq 98 mEq 98.13 mEq Calcium 8 mEq 8 mEq 8 mEq Magnesium 44 mEq 42 mEq 40 mEq Aluminum -- -- -- Phosphate 37 mmol 33 mmol 29 mmol Chloride 112 mEq 134 mEq 110 mEq Acetate 185.13 mEq 235.13 mEq 265.13 mEq Chloride: Acetate Ratio 0.605 0.57 0.415 Trace Elements Copper 0.15 mg 0.15 mg 0.15 mg Manganese 27.5 mcg 27.5 mcg 27.5 mcg Selenium 30 mcg 30 mcg 30 mcg Zinc 1.5 mg 1.5 mg 1.5 mg Other Total Amino Acid 110 g 110 g 110 g Total Amino Acid/kg 1.09 g/kg 1.09 g/kg 1.09 g/kg Glucose Infusion Rate 3.22 mg/kg/min 1.61 mg/kg/min 1.61 mg/kg/min Osmolarity 1,469.32 1,060.82 1,059.52 Volume 1,992 mL 2,880 mL 2,880 mL Rate 166 mL/hr 120 mL/hr 120 mL/hr Dosing Weight 101.3 kg 101.1 kg 100.8 kg Infusion Site Central Central Central Total Multi-vitamins 5 mL 5 mL 5 mL Lab Results Component Value Date NA 140 11/14/2021 K 4.8 11/14/2021 CL 102 11/14/2021 CO2 25 11/14/2021 BUN 27 (H) 11/14/2021 CREATININE 0.93 11/14/2021 ESTGFR 88 11/14/2021 MAGNESIUM 1.18 (H) 11/14/2021 CALCIUM 8.5 11/14/2021 PHOS 3.6 11/14/2021 AST 29 11/14/2021 ALT 22 11/14/2021 ALKPHOS 130 11/14/2021 BILITOT 0.3 11/14/2021 BILIDIR 0.1 11/14/2021 TRIG 171 07/13/2021 HA1C 5.8 (H) 11/11/2021 [id number] 1,799 (H) 08/01/2021 SFOLATE 5.6 08/01/2021 IRON [...] O2 sat monitor, IV sites Other Sites: Ostomy, PICC, PIV, SL mediport Relevant medications: BMX prn, imodium, protonix, caphosol, prograf, zofran prn Last Bowel Movement: 11/13/21 Intake/Output Summary (Last 24 hours) at 11/14/2021 0751 Last data filed at 11/14/2021 0700 Gross per 24 hour Intake 1938 ml Output 4050 ml Net -2112 ml Admit Weight: 107.1 kg Estimated body mass index is 32.33 kg/m?? as calculated from the following: Height as of this encounter: 177 cm (5' 9.69). Weight as of this encounter: 101.3 kg (223 lb 5.2 oz). Anton Body Weight: 74.6 kg Usual Body Weight: 235 lbs per pt Wt Readings from Last 10 Encounters: 11/14/21 101.3 kg (223 lb 5.2 oz) 10/15/21 107.8 kg (237 lb 9.6 oz) 10/04/21 107.2 kg (236 lb 6.4 oz) 09/27/21 109 kg (240 lb 6.4 oz) 09/16/21 105.9 kg (233 lb 6.4 oz) 09/12/21 106.6 kg (235 lb) 09/09/21 102.8 kg (226 lb 9.6 oz) 09/05/21 106.8 kg (235 lb 6.4 oz) 08/26/21 102.8 kg (226 lb 9.6 oz) 08/19/21 100.2 kg (221 lb) Patient Vitals for the past 168 hrs: Weight 11/14/21 0403 101.3 kg (223 lb 5.2 oz) 11/13/21 1540 101.5 kg (223 lb 12.3 oz) 11/13/21 0300 101.3 kg (223 lb 5.2 oz) 11/12/21 1550 101.4 kg (223 lb 8.7 oz) 11/12/21 0440 101.1 kg (222 lb 14.2 oz) 11/11/21 1635 101.3 kg (223 lb 5.2 oz) 11/11/21 0320 100.8 kg (222 lb 3.6 oz) 11/10/21 1711 102.3 kg (225 lb 8.5 oz) 11/10/21 0348 103.1 kg (227 lb 4.7 oz) 11/09/21 1521 104.2 kg (229 lb 11.5 oz) 11/09/21 0132 104.1 kg (229 lb 8 oz) 11/08/21 1640 104.4 kg (230 lb 2.6 oz) 11/08/21 0100 104.4 kg (230 lb 2.6 oz) 11/07/21 1545 104.3 kg (229 lb 15 oz) Assessment: Estimated needs: Calories: 1865 (25 kcal/kg IBW) Protein: 89-112 grams (1.2-1.5 g/kg IBW) Nutrition Focused Physical Exam (NFPE): Performed on 10/28/21. Subcutaneous fat loss at Orbital region: None present Upper arm region (triceps/biceps): None present Thoracic and lumbar region (ribs, lower back and maxillary line): Not assessed Lean muscle loss to Orthodoxy region (temporalis muscle): None present Clavicle bone region (pectoralis major): None present Dorsal hand (interosseous muscle): None present Shoulder (deltoid): None present Scapular bone region (latissimus dorsi, trapezius muscles): Not assessed Thigh region (quadriceps muscle): None present Posterior calf region (gastrocnemius muscle): None present Fluid accumulation: Not assessed Nutrition intake and intake history/Interview: 40mEq of KCl repletion noted yesterday. 11/13: At time of visit, pt eating hard boiled eggs for breakfast. He reported he did not eat breakfast or lunch yesterday, had soup for dinner. He reported mucositis is improving, although he is still primarily eating softer foods. He is no longer eating the snacks from dietary, will d/c. TPN switchedto cyclic today. 11/11: Patient with life safety event yesterday. 40mEq KCl repletion noted yesterday. 11/09: Message from pharmacy re: K of 4.6. Reduced K in TPN by 20mEq. 11/07: 40mEq of KCl repletion noted yesterday. 11/06: 60mEq of KCl repletion noted yesterday. 11/04: Luis Manuel reported a poor appetite today, not taking solids d/t mucositis and primarily taking in water as fluids, gatorade at bedside. Ileostomy output high, although per pt output is stable. Continue to monitor wt, below reported UBW. Protein-calorie Malnutrition: Not enough data to assess (Cameron, JPEN J Parenteral Enteral Nutr. 2012 December; 36(3): 273-83) Nutrition to continue to follow up while inpatient. Thank you, Claudia Claros RD Pager #[phone] NIAT Luis Manuel Goodrich Jr., MD - 11/14/2021 7:43 AM EDT Images from the original note were not included. Inpatient Hematology/Oncology/SCT Progress Note Patient info: Name: Luis Manuel Mobley Jr. : 1960 PCP: LEISA Munguia PCP phone number: [phone] Date of Admission: 10/15/2021 ( Hospital Day 30 days ) Service: Hem/Onc Team A pg [id number] (09/03) Responsible Attending:Luis Manuel Goodrich Jr., MD ID: Luis Manuel Mobley Jr. is a 61 y.o. Male with hx of paroxysmal Afib, c diff colitis c/b toxic megacolon s/p bowel resection and colostomy in may 2021, FLT3+ AML with positive [employer] disease??s/p CR w/ 7+3+Midostaurin c/b relapse tx w ventoclax + gilteritinib (held since 10/08) most with pre-transplant BM and LP showing FELY, admitted for MUD allo HSCT.Today is day +23 (day 0 is 10/22), getting daptomycin and meropenem for VRE bacteremia. Baseline weight: 107.1kg Donor: MUD ABO: Donor O negative, recipient O positive HLA: 05/26 ID status: Donor and recipient both CMV negative Conditioning regimen: fludarabine, busulfan GVHD regimen: Rabbit ATG, methotrexate, tacrolimus 24 Hour Events: - Yesterday, changed some meds to po and tolerated with pudding, showered, at breakfast and lunch, SR/ST on tele - Overnight, taking po meds, declined pain meds/bmx for mucositis, - This AM, reports ate two hard boiled eggs and some pasta yesterday, able to swallow pills - Weight: 101.3kg -> 101.3kg - In/Out: -2111 - no transfusion need today Vitals: Last value Range last 24 hrs Temperature Temp: 36.8 ??C (98.2 ??F) Temp: [36.5 ??C (97.7 ??F)-37.6 ??C (99.7 ??F)] Heart Rate Heart Rate: (!) 106 Heart Rate: [87-106] Blood Pressure BP: 121/74 BP: (121-155)/(74-88) Respiratory Rate Resp: 22 Resp: [22-23] SpO2 SpO2: 96 % SpO2: [95 %-97 %] Intake/Output Summary (Last 24 hours) at 11/14/2021 0743 Last data filed at 11/14/2021 0700 Gross per 24 hour Intake 1938 ml Output 4050 ml Net -2112 ml Patient Vitals for the past 168 hrs: Weight 11/14/21 0403 101.3 kg (223 lb 5.2 oz) 11/13/21 1540 101.5 kg (223 lb 12.3 oz) 11/13/21 0300 101.3 kg (223 lb 5.2 oz) 11/12/21 1550 101.4 kg (223 lb 8.7 oz) 11/12/21 0440 101.1 kg (222 lb 14.2 oz) 11/11/21 1635 101.3 kg (223 lb 5.2 oz) 11/11/21 0320 100.8 kg (222 lb 3.6 oz) 11/10/21 1711 102.3 kg (225 lb 8.5 oz) 11/10/21 0348 103.1 kg (227 lb 4.7 oz) 11/09/21 1521 104.2 kg (229 lb 11.5 oz) 11/09/21 0132 104.1 kg (229 lb 8 oz) 11/08/21 1640 104.4 kg (230 lb 2.6 oz) 11/08/21 0100 104.4 kg (230 lb 2.6 oz) 11/07/21 1545 104.3 kg (229 lb 15 oz) Exam: GENERAL:?appeared in no acute distress, no delay in response, answering all questions MOUTH: improving mucositis CARDIOVASCULAR:??rrr no mrg PULMONARY:??CTAB on RA, no increased wob GASTROINTESTINAL:??Abdomen soft nontender to palpation w +BS. Colostomy with brown watery stool in place. SKIN:??bilateral petechial rash on BLEs, improving EXT: no Edema at ankles NEUROLOGICAL:??no focal deficit Medications: Scheduled Meds: ??? pantoprazole EC 40 mg Oral Daily ??? fluconazole 400 mg Oral Daily ??? acyclovir 800 mg Oral BID ??? loperamide 2 mg Oral BID ??? tacrolimus 0.5 mg Intravenous 2 times per day ??? DAPTOmycin 10 mg/kg/dose (Adjusted) Intravenous Q24H ??? metoprolol succinate XL 50 mg Oral Daily ??? ursodiol 300 mg Oral Daily with breakfast ??? ursodiol 600 mg Oral Daily with dinner ??? gabapentin 200 mg Oral TID ??? sodium chloride 0.9 % (flush) 5 mL Intravenous BID ??? vancomycin 125 mg Oral BID ??? flecainide 50 mg Oral BID ??? supersaturated calcium phosphate 30 mL Oral 4 Times Daily ??? [START ON 11/21/2021] sulfamethoxazole-trimethoprim DS 1 tablet Oral Daily Continuous Infusions: ??? TPN Adult Stopped (11/14/21 0700) PRN Meds:.bolfoawfo-qkxpyvwwy-pv-mag-sim, morphine, lidocaine, sodium chloride 0.9 % (flush), magnesium sulfate, magnesium sulfate, potassium chloride, potassium chloride ER, potassium chloride ER, acetaminophen, camphor-menthoL, loperamide, alum-mag hydroxide-simeth, calcium carbonate, sucralfate, fur osemide, furosemide, sodium chloride 0.9 % (flush), lidocaine, LORazepam, ondansetron, prochlorperazine, heparin, porcine, sodium chloride 0.9 % (flush) Labs: Recent Labs 11/14/21 0420 11/13/21 0325 11/12/21 0350 11/10/21 1223 11/10/21 0335 WBC 8.9 9.4 7.2 < > 0.4* HGB 8.0* 8.0* 8.0* < > 7.0* HCT 23.0* 23.1* 22.8* < > 20.0* PLATELET 11* 12* 16* < > 17* NEUTROABS 5.16 -- 4.78 -- 0.18* < > = values in this interval not displayed. Recent Labs 11/14/21 0420 11/13/21 0325 11/12/21 0350 NA 140 137 138 K 4.8 3.8 3.9 CL 102 99 99 CO2 25 26 27 BUN 27* 24* 22* CREATININE 0.93 0.95 0.94 Recent Labs 11/14/21 0420 11/13/21 0325 11/12/21 0350 CALCIUM 8.5 8.4* 8.7 MAGNESIUM 1.18* 0.98 0.91 PHOS 3.6 2.8 2.5 Recent Labs 11/14/21 0420 11/11/21 0350 AST 29 32 ALT 22 29 ALKPHOS 130 124 BILITOT 0.3 0.4 BILIDIR 0.1 0.2 No results for input(s): INR, PT, PTT in the last 72 hours. Microbiology: BCx 11/05: NGTD BCx 11/03: 1/2 Corynebacterium species, likely contaminant BCx 11/02: VRE UA 11/03: unremarakble BCx 10/20: NGTD UA 10/20: does not look infectious Microbiology Results (Last 30 days) Procedure Component Value Units Date/Time Blood culture [[id number]] Collected: 11/10/21 1421 Lab Status: Preliminary result Specimen: Blood Updated: 11/13/21 2302 Blood Culture No growth at 3 days. Blood culture [[id number]] Collected: 11/10/21 1314 Lab Status: Preliminary result Specimen: Blood Updated: 11/13/21 1501 Blood Culture No growth at 3 days. C. Difficile Screen [[id number]] Collected: 11/09/21 1440 Lab Status: Final result Specimen: Stool Updated: 11/09/21 1548 C Diff Screen Negative Comment: Ag/Tox Neg C. diff?? Negative Clostridium difficile is not present in the specimen. If patient is having diarrhea suspected to be from an infectious cause, then Soap & Water Contact Precautions are still required. Blood culture [[id number]] Collected: 11/09/21 0428 Lab Status: Final result Specimen: Blood Updated: 11/14/21 0701 Blood Culture No growth at 5 days. Blood culture [[id number]] Collected: 11/09/21 0410 Lab Status: Final result Specimen: Blood Updated: 11/14/21 0701 Blood Culture No growth at 5 days. Blood culture [[id number]] Collected: 11/06/21 1224 Lab Status: Final result Specimen: Blood from Hand, Left Updated: 11/11/21 1501 Blood Culture No growth at 5 days. Blood culture [[id number]] Collected: 11/06/21 1218 Lab Status: Final result Specimen: Blood from Antecubital, Left Updated: 11/11/21 1501 Blood Culture No growth at 5 days. Blood culture [[id number]] Collected: 11/05/21 0935 Lab Status: Final result Specimen: Blood from Hand, Left Updated: 11/10/21 1501 Blood Culture No growth at 5 days. Blood culture [[id number]] Collected: 11/05/21 0928 Lab Status: Final result Specimen: Blood from Arm, Left Updated: 11/10/21 1501 Blood Culture No growth at 5 days. Blood culture [[id number]] Collected: 11/03/21 0408 Lab Status: Final result Specimen: Blood Updated: 11/08/21 0701 Blood Culture No growth at 5 days. Blood culture [[id number]] (Abnormal) Collected: 11/03/21 0356 Lab Status: Final result Specimen: Blood Updated: 11/08/21 0706 Blood Culture -- Corynebacterium species isolated : Interpretation of the importance of skin mitzy such as Coagulase Negative Staph, Viridans Strep, Corynebacteria and other Gram Positive organisms from a single Blood Culture set requires clinical correlation. Gram Stain Aerobic -- Note: This is a corrected report Growth detected in aerobic bottle. Gram Positive Rods seen Previously reported as: Gram Positive Cocci seen Results called to and read back by Denise Madera RN at 11/06/21 10:57:10 Blood culture [[id number]] (Abnormal) (Susceptibility) Collected: 11/02/21 1018 Lab Status: Final result Specimen: Blood Updated: 11/05/21 1124 Blood Culture -- Enterococcus faecium isolated * VRE, Vancomycin Resistance * Isolate saved. If future testing is required, contact the Microbiology Industrial Organizational Psychologist. Gram Stain Aerobic -- Growth detected in aerobic bottle. Gram Positive Cocci in pairs seen Gram Stain Anaerobic -- Growth detected in anaerobic bottle. Gram Positive Cocci in pairs seen Results called to and read back by Radha Marmolejo 11/03/21 02:42:51 VMartin Susceptibility Enterococcus faecium MICROSCAN METHOD Ampicillin Resistant Erythromycin Resistant Gentamicin 500 Sensitive Linezolid Sensitive Penicillin Resistant Vancomycin Resistant Linear View Blood culture [[id number]] (Abnormal) Collected: 11/02/21 1018 Lab Status: Final result Specimen: Blood Updated: 11/05/21 1125 Blood Culture -- Enterococcus faecium isolated * VRE, Vancomycin Resistance * Susceptibilities previously reported Gram Stain Anaerobic -- Growth detected in anaerobic bottle. Gram Positive Cocci in pairs seen Gram Stain Aerobic -- Growth detected in aerobic bottle. Gram Positive Cocci in pairs seen C. Difficile Screen [[id number]] Collected: 10/28/21 1207 Lab Status: Final result Specimen: Stool Updated: 10/28/21 1334 C Diff Screen Negative Comment: Ag/Tox Neg C. diff?? Negative Clostridium difficile is not present in the specimen. If patient is having diarrhea suspected to be from an infectious cause, then Soap & Water Contact Precautions are still required. Blood culture [[id number]] Collected: 10/20/21 1732 Lab Status: Final result Specimen: Blood Updated: 10/25/21 2301 Blood Culture No growth at 5 days. Blood culture [[id number]] Collected: 10/20/21 1732 Lab Status: Final result Specimen: Blood Updated: 10/25/21 2301 Blood Culture No growth at 5 days. Blood culture [[id number]] Collected: 10/19/21 1139 Lab Status: Final result Specimen: Blood from Antecubital, Left Updated: 10/24/21 1501 Blood Culture No growth at 5 days. Blood culture [[id number]] (Abnormal) Collected: 10/19/21 1133 Lab Status: Final result Specimen: Blood from Hand, Right Updated: 10/25/21 0910 Blood Culture -- Coagulase negative Staphylococcus species detected by PCR Interpretation of the importance of skin mitzy such as Coagulase Negative Staph, Viridans Strep, Corynebacteria and other Gram Positive organisms from a single Blood Culture set requires clinical correlation. Gram Stain Aerobic -- Growth detected in aerobic bottle. Gram Positive Cocci in clusters seen C. Difficile Screen [[id number]] Collected: 10/19/21 1020 Lab Status: Final result Specimen: Stool Updated: 10/19/21 1607 C Diff Screen Negative Comment: Ag/Tox Neg C. diff?? Negative Clostridium difficile is not present in the specimen. If patient is having diarrhea suspected to be from an infectious cause, then Soap & Water Contact Precautions are still required. COVID-19 PCR [[id number]] Collected: 10/19/21 0405 Lab Status: Final result Specimen: Nasopharyngeal Swab Updated: 10/19/21 183 SARS-CoV-2 RNA Not Detected Comment: This result should be interpreted in combination with the clinical observations, patient history and epidemiological information in making a final diagnosis. For testing of asymptomatic individuals, assay performance characteristics and clinical utility have not been evaluated. Testing for SARS-CoV-2 (Severe acute respiratory syndrome coronavirus 2, formerly known as 2019 novel coronavirus or 2019-nCoV) to aid in the diagnosis of COVID-19 is performed using the [employer] m SARS-CoV-2 Assay as authorized by the FDA Emergency Use Authorization (EUA). This EUA assay is intended for In-vitro Diagnostic (IVD) use with respiratory specimens such as nasopharyngeal swabs collected from individuals during the acute phase of infection. This assay is performed based on the instructions for use provided by [employer] and additional guidance provided by CDC and FDA. Testing is performed in the [facility] within the Department of Pathology and Laboratory Medicine at [facility], certified under the Clinical Laboratory Improvement Amendments of 1988 (CLIA), 42 U.S.C. 263a, to perform high complexity tests. Assay performance has been verified according to clinical laboratory regulatory requirements for use with specimens collected from individuals suspected of COVID-19. Test results are provided above. A result of Not Detected indicates that the viral RNA target is not present above the limit of detection, but does not preclude SARS-CoV-2 infection. False negative results may occur if a specimen is improperly collected, transported or handled; if amplification inhibitors are present; or if inadequate numbers of viral particles are present in the specimen. When a diagnostic test is negative, the possibility of a false negative result should be considered in the context of a patient's recent exposures and the presence of clinical signs and symptoms consistent with COVID-19. A result of Detected indicates that RNA from SARS-CoV-2 was detected and the patient is infected. As required or requested by public health authorities, positive specimens may be sent for additional testing. Positive and negative predictive values for this test are highly dependent on disease prevalence. A result of Invalid indicates that neither the viral RNA targets nor the internal control target was detected. An invalid result suggests the presence of inhibitors. Recollection and re-testing is recommended in the case of an invalid result. CDC COVID-19 criteria for testing on human specimens and clinical management guidance information are available at the CDC Coronavirus Disease 2019 (COVID-19) webpage under Information for Healthcare Professionals (https://www.cdc.gov/coronavirus/2019-ncov/hcp/index.html) Additional information about this and other EUA tests can be found in provider and patient fact sheets at the following FDA website: https://www.fda.gov/medical-devices/sewhepwkisr-hkankfw-1048-flyds-20-qlozpyntr- tyw-qozbfbofpvnssn-augditz-devices/vwdvo-iqrlnhrcabc-yvac SARS-Cov-2 RNA Source ULTRASOUND SPEC Swab COVID-19 PCR [[id number]] Collected: 10/15/212032 Lab Status: Final result Specimen: Nasopharyngeal Swab Updated: 10/16/21 0004 SARS-CoV-2 RNA PCR Not Detected Comment: This result should be interpreted in combination with the clinical observations, patient history and epidemiological information. For testing of asymptomatic individuals, assay performance characteristics and clinical utility have not been evaluated. Testing for SARS-CoV-2 (Severe acute respiratory syndrome coronavirus 2, formerly known as 2019 novel coronavirus or 2019-nCoV) to aid in the diagnosis of COVID-19 is performed using the [employer] COVID-19 Direct Assay by [employer] as authorized by the FDA issued Emergency Use Authorization (EUA). This assay is intended for In-vitro Diagnostic (IVD) use with nasopharyngeal swabs collected from individuals meeting the CDC criteria for testing. The assay is performed based on the instructions for use and additional guidance provided by the FDA. Testing is performed in the Microbiology Laboratory within the Department of Pathology and Laboratory Medicine at [facility], certified under the Clinical Laboratory Improvement Amendments of 1988 (CLIA), 42 U.S.C. section 263a, to perform high complexity tests. Assay performance has been verified according to clinical laboratory regulatory requirements. Test results are provided above. A result of Not Detected indicates that the viral RNA target is not present but does not preclude SARS-CoV-2 infection. False negative results may occur if a specimen is improperly collected, transported or handled; if amplification inhibitors are present; or if inadequate numbers of viral particles are present in the specimen. A result of Detected suggests a current or recent infection and the patient is presumed to be infected. Positive and negative predictive values for this test are highly dependent on disease prevalence. A result of Invalid indicates the inability to conclusively determine the presence or absence of SARS-CoV-2 RNA in the sample which can be due to a variety of factors. Recollection is recommended in the case of an invalid result. CDC COVID-19 criteria for testing on human specimens and clinical management guidance information are available at the CDC Coronavirus Disease 2019 (COVID-19) webpage under Information for Healthcare Professionals (https://www.cdc.gov/coronavirus/2019-ncov/hcp/index.html). Additional information about this and other EUA tests can be found in provider and patient fact sheets at the following FDA website: https://www.fda.gov/medical-devices/tlbcglqdrry-qjrgpbs-5490-xuohu-41-bftnmkmwz- tbq-ewvohlpcvwzmeh-vscxayi-devices/pmmjd-mavtnpeqdfu-evtw SARS-CoV-2 Source ULTRASOUND SPEC Swab Pertinent radiology/diagnostic studies: MRI Brain 11/10: Punctate acute infarct in the posterolateral right frontal lobe subcortical white matter, without acute hemorrhage. CT A/P w contrast 11/03 ?? IMPRESSION ?? 1. Ill defined opacities in lingula may represent pneumonia. Consider follow-up chest x-ray if indicated. 2. No abdominal or pelvic abscess seen. 3. Hiatal hernia with fat stranding around a thick walled and dilated distal esophagus. Finding may represent esophagitis. 4. Resolution of splenomegaly. 5. No enlarged abdominal and pelvic lymph nodes. 6. No abdominal or pelvic ascites. CXR 11/04 ?? IMPRESSION Radiographically the left basilar airspace opacity seen on 11/02/2021 has resolved and findings are now similar compared to a radiograph from 10/19/2021. However, it is uncertain to which extent the mild opacities seen on CT 11/03/2021 still persist or have resolved (due to difference in technique). ?? Within the limitation of single frontal view the change in positioning of the left subclavian central venous catheter in comparison to 10/19/2021 is due to the fact that the tip has flipped into the azygos vein (unchanged to 11/02/2021). Please correlate clinically if functionalityof this catheter remains adequate. TTE 11/06 1. There are no vegetations seen on this study, if clinical suspicion for endocarditis remains, consider OLEKSANDR for further evaluation 2. Left ventricle is normal in size. LVEF is estimated at 64% by biplane. There are no wall motion abnormalities. 3. Right ventricle is milldly dilated with normal systolic function. 4. There is no pericardial effusion. TTE w bubble 11/11 Left ventricular systolic function is normal. The left ventricular ejection fraction is 67% by Tony's biplane. There are no segmental wall motion abnormalities. The left atrium is normal. There is no evidence for a patent foramen ovale. There is no evidence for a patent foramen ovale visualized with agitated saline. No significant valvular abnormalities. The aortic root at the level of the sinuses of Valsalva is mildly dilated. 3.8 cm. The ascending aorta is mildly dilated. 3.7 cm. Other details as noted below. ?? ASSESSMENT/PLAN: Luis Manuel Mobley Jr. is a 61 y.o. 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 now day + 23 (day 0 is 10/22) for MUD HSCT. Tolerated stem cell infusion well on 10/22, had some rigors and nausea post- infusion that resolved with medications. Counts remain low. Neutropenic fever on 11/02, cefepime escalated to zosyn, and then todaptomycin and cefepime after 1 day when BCx positive for VRE. TTE on 10/09 with no vegetation. Tunneled line removed 11/05. Plan for total of 2 weeks of daptomycin from 1st neg BCx until 11/17. Unfortunately, re-fevered on 11/10 during stroke event, prompting escalation of abx to meropenum, which was discontinued after 2 days when BCx showed no growth and pt's ANC > 500. Patient's high ostomy output (2-3L per day) initially improved with scheduled imodium. Lovenox stopped on 11/02 due to heme positive stool and severe mucositis, restarted on 11/07, and stopped on 11/08. For mucositis, on bmx, viscous lidocaine, morphine scheduled (dilaudid causes nausea). Started TPN on 10/31 (day +9). Transitioned PO medication to IV as able. Patient was found to have an acute ischemic stroke on 11/10 after noted to be having word finding difficulty, likely embolic from A. Fib w rvr when unable to take flecanide. Neurology consulted. Will hold off starting rousuvastatin because on daptomycin. On Tele. Mental status improving, back to baseline. For his bilateral feet neuropathy, will continue gabapentin to 200mg TID as tolerated Summary Plan: - change tac to po (currently getting IV tac 0.5mg bid) - continue cycle TPN - continue daptomycin until 11/17 - tacrolimus level Thursday and - f/u Thursday EBV every 2 weeks Plan: #Ischemic Stroke - Hemorrhagic stroke ruled out with CTA Head - R occipital lesion identified - MRI brain acute infarct in the posterolateral right frontal lobe - Permissive hypertension for now - Not a TPA candidate per neurology - neurology following - will start aspirin when counts improve - will start rousuvastatin when off daptomycin #VRE bacteremia #Neutropenic fever - likely from gut translocation from mucositis - abx: - cefepime 10/19 - 11/02, 11/03 - 11/10 - Meropenum 11/10 - 11/12 - zosyn 11/02 - daptomycin 11/02 - 11/17 - BCx 11/03: 1/2 Corynebacterium species (likely contaminant) - BCx 11/05 NGTD - OLEKSANDR 11/06 no vegetation - BCx 11/10: pending #STACIE, pre-renal, improving - pre-renal, noted on 10/27 - s/p 1L Bolus on 10/27 and 10/28, encourage imodium to thicken ostomy output - mIVF (10/29 -> 11/01) - continue to monitor, on TPN so no IVF #AML #MUD HSCT Day (-7): Fludarabine: Day (-6): Fludarabine, Busulfan, Rabbit ATG: Day (-5): Fludarabine, Busulfan, Rabbit ATG: Day (-4): Fludarabine, Busulfan, Rabbit ATG: Day (-3): Fludarabine, Busulfan: Day (0): Stem Cell Infusion: Day (+1): metHOTREXate: Day (+3): metHOTREXate: Day (+6): metHOTREXate: Day (+11): metHOTREXate: General - q4h vitals - strict Is/Os 2x daily - weigh patient 2x daily, notify provider if weight increases by 1kg or more in 12 hour period ?- lasix 20mg IV prn weight gain >1 kg above admission baseline ?- lasix 20mg IV for weight gain 1 kg over 12 hours or input exceeding output by greater than 1,000 ml/12h - neutropenic precautions - incentive spirometry q2h while awake - activity as tolerated - electrolyte replacement - not checking CMV b/c both recipient and donor are CMV negative - check EBV every 14 days until day +100 (01/24/22) Chemotherapy/Support - Busulfan 204mg??day (-6) to day (-3) -??Fludarabine??61??mg 102ml infusion once over 30 minutes day -7 Then every 24 hours at 0900 for 4 doses day (-6) to day (-3) - Rabbit ATG??124.8mg over 10 hours day (-6), 166.4mg on day (-5) 208??on day (-4).?? - Day 0 stem cell infusion. Premedicate with acetaminophen 650mg, diphenhydramine 50mg) - Methotrexate??10mg??day (+1), day (+3), day (+6), day (+11). Hold for serum creatinine >2, bilirubin >5, fluid accumulation (large effusion or ascites), severe mucositis if potential need for intubation. - filgrastim??600mcg qd starting day (+7) until ANC >1500 ?? Laboratory Monitoring - weekly CMV PCR starting day +10, then weekly thereafter - IgG every 2 weeks starting day +1 to day +100 - U/A s/ reflex culture on admission, then daily on days -2, -1, 0? Transfusion parameters - Hgb <??7 - PLT <10, or if febrile??or bleeding??<20 - keep active T&S once hgb <8 ?? Prophylaxis Seizure ppx ?-phenytoin 300 day (-6) through (-1) - GI ppx ?- pantoprazole 40mg qd - mucositis ppx ?- supersaturated calcium phosphate oral solution 30ml 4x daily starting on admission until resolution of mucositis and ANC ?>500 - infection ppx ?- fluconazole 400mg qd starting day (0) ?- levofloxacin 750mg qd starting day (0) until ANC >500, changed tocefepime due to fever on 10/19, stopped on 11/12 due to ANC >500 ?- acyclovir 800mg bid starting day (-7) ?- bactrim DS 1 tablet daily from day (-7) through day (-2) ?- bactrim DS 1 tablet MWF starting day (+30) - GVHD ppx?-??Tacrolimus??0.5mg IV bid?? - Started day (-2),?target 5-10 trough - VOD ppx ?- lovenox 40mg qd day (-7) through (+30) per Dr. Modi's note, he should continue lovenox 100mg qd until plt apx <40 then switch to VOD ppx dose. ?- ursodiol 300mg qAM??&??qPM day (-7) through day (+30) Hydration - NaCl 0.9% continuous??150ml/hr x??day (-6) ??Through (-3) ?? Pain/Nausea/Appetite - avoid acetaminophen through??day??(-3) - avoid steroid antiemetics - palonosetron 0.25mg day (-6) - aprepitant 130mg day (-6) prior to??busulfan - lorazepam 0.5mg IV q4h prn nausea, anxiety - ondansetron??8mg q8h prn nausea, vomiting beginning day (-3) - prochlorperazine 10mg IV q6h prn nausea, vomiting - use ondansetron >??prochlorperazine or promethazine >??lorazepam >??metoclopramide - olanzapine 5mg qhs starting day (-3) for 5 doses?? - morphine scheduled ?? #Paroxysmal Afib - Continue home metoprolol, flecainide ?? #Hx of provoked PE in Apr 2021 - On lovenox 100mg qd (held prior to central line placement) - Continue until plt reach approximately 40 followed by switch to prophylactic dosing - may not need upon discharge b/c s/p 3 months of AC ?? #Hx of C diff colitis - Continue home PO vancomycin as tolerated - Ostomy care - C. Diff negative 10/28 #Bilateral Feet tingling - pt reports having baseline bilateral feet tingling that was noted to be worsened on on 10/21 (2 daysafter completing 5 days of fludarabine), strength intact, no loss of sensation - start gabapentin 100mg TID (10/21 - 10/23), 200mg TID (10/23 - p) #GERD - takes protonix at home - current regimen: protonix bid, carafate, tums, #Pancytopenia 2/2 to chemo and disease - continue to monitor, transfuse as needed for support #Routine DVT PPx: none due to thrombocytopenia Diet: Neutropenic (BMT) diet Dispo: [place] CODE STATUS: Attempt Cardiopulmonary Resuscitation - Inpatient Stacy Marin MD PGY1 Internal Medicine 11/14/2021 Heme/Onc/BMT Team A Pager #[phone] BMT /??HEMATOLOGY STAFF ADDENDUM? I have independently interviewed and examined this patient and have personally reviewed the relevantclinical, laboratory and radiological data with the housestaff on rounds. Please refer to the comprehensive progress note above, with which I concur. I have reviewed and endorse the plan as outlined and have made any additions/corrections below. This patient meets criteria for inpatient level of care based on the above medical complexity.? 61??year old man??with ??high-risk??(FLT3+)??AML??adm???d on 10/15 for RXD-Jwoi-EIT via Flu/Bu/ATG regimen. Pretransplant course marked by dev't of C difficile colitis with toxic megacolon, s/p [id number], with ostomy, then dev't of SU[employer] disease that was cleared prior to SCT. ? Luis Manuel is now day +23??today. He was found to have word finding difficulties??on 11/10, then noted per imaging to manifest a??small??Rt occipital??ischemic stroke.?The most likely explan'n was felt to be a missed flecainide dose (x1- 2) in the setting of intermittent (paroxysmal) Afib. Hwvr, we also performed a cardiac work up??(TTE with bubble study) to further assess pot'l etiologies, and this was unrevealing. While Luis Manuel continues to manifest a mild right-sided facial droop and rt-sided weakness, he is ambulating on the [place]a without difficulty, and his transient aphasia has entirely resolved, without any other significant residual deficits. ? Because of fevers and the neuro acute events on 11/10, atbx changed to Meropenem, for better gut anaerobe coverage.?As per the recommended plan from ID, we have since downgraded atbx back to Cefepimebased on neg BCx at 48-72h post above event.? Updated Plan: #??Severe mucositis - on morphine prn. Offered SWATCHER, but patient declined. Content with current regimen. ?- most meds switched to IV.?- TPN -> will now cycle; continue supportive measures. ?# ID:??Neutropenic fever:?-??Afebrile since 11/04?#??VRE bacteremia?? -??noted on BCx from 11/02; Repeat Cx on 11/03 growing GPC and Corynebacterium.??ECHO??- no vegetations.? - On cefepime, daptomycin??per ID -> dapto to be completed on 11/17 ([place]) ? - On Acyclovir and fluconazole ppx??; On oral Vanc for C. Diff ppx? # GVHD ppx?? - On Tacrolimus 0.5 mg IV q12h ?? -??Tac level 11/07??- 9.8; 7.8 on 11/11 - Tac changed to oral dosing (11/13), with updated trough due on 11/18 - plan to recheck Tac trough on oral dose schedule (11/18) prior to pot'l discharge ?? # VOD ppx - on Ursodiol ; ??-??D/C??lovenox for increased oral bleeding from mucositis? # GI , Ostomy - ??C. Diff neg. ?? -?On prn imodium for increased out put ? # Disposition - potential discharge on Thu, 11/18 after change to oral meds, completion of Dapto and documentation of Tac trough level on oral dose schedule. - pot'l barriers to 11/18 discharge -> 1) Tac trough level on oral dosing and 2) platelet count (lagging behind granulocyte engraftment, as anticipated); Luis Manuel is aware ? I reviewed??his??situation and our plans with the team, RN and pt on rounds today.? Central Venous Access Statement of Need?? Tunneled catheter - clean dry intact site? Can the central IV access be removed?[?Yes?[x ] No?[ ] N/A?? If no, reason for central access:? [X]?Stem cell transplant patient or AML induction? TACHO Goodrich MD Heme/Onc Section? Lanny Krishnan RN - 11/14/2021 4:55 AM EDT Patient Summary Reason for admission: Day +23 (11/14) of MUD allo SCT for high-risk (FLT3+) AML conditioned with Flu/Bu/ATG/MTX 11/02: Positive blood cultures VRE 11/03: positive blood cultures (+ gram rods) 11/10: Stroke alert called 2/2 word finding difficulty, disorientation, unable to follow commands. Found to have R sided occipital ischemic stroke. Not a TPA or aspirin candidate Relevant PMH: s/p bowel resection/colectomy d/t toxic megacolon, Cdiff, Bilateral PE, hx paroxysmal AFIB, 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 Significant 24 hour events: 11/13 PM: A&Ox4, neuro checks unchanged. NSR- ST on telemetry. Able to take PO meds, declined PRNpain meds/bmx for mucositis. SCDs in place. Swallowing complaint/ sore/dry tongue 10/24, utilizing rinses. Ostomy with watery/liquid stool output. Stool and urine heme positive. Will continue to monitor. Baseline Weight: 107.1 kg AM weight: 101.3 kg PM weight: 101.5 kg Action List Q6HWA neuro checks- notifiremington STEPHENSON of any new changes TPN cyclic IV Daptomycin for bacteremia Ostomy care, monitor output Pati Gilbert RN - 11/13/2021 6:33 PM EDT Illness Severity [x] Stable [] Watcher [] Unstable Patient Summary Reason for admission: Day +22 (11/13) of MUD allo SCT for high-risk (FLT3+) AML conditioned with Flu/Bu/ATG/MTX 11/02: Positive blood cultures VRE 11/03: positive blood cultures (+ gram rods) 11/10: Stroke alert called 2/2 word finding difficulty, disorientation, unable to follow commands. Found to have R sided occipital ischemic stroke. Not a TPA or aspirin candidate Relevant PMH: s/p bowel resection/colectomy d/t toxic megacolon, Cdiff, Bilateral PE, hx paroxysmal AFIB, 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 Significant 24 hour events: 11/12 AM: Q6 hour neuro checks unchanged. Afebrile, VSS. Showered and shaved head. Ate two meals today (dinner not at bedside at time of note). Pills w/e to tacro transitioned to PO- tolerated well withpudding. Consumed 3 bites pudding with artificial sweetener in it, patient aware and team aware. Denied symptoms throughout day, no intervention. Team aware of multiple IV access points, holding off onde-accessing mediport. Swallowing complaint/ sore tongue 10/24, utilizing rinses. Stool and urine heme positive. SR/ST on tele today, see report. Ondansetron given x1 for nausea this evening with good effect. 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 Inpatient Hematology/Oncology/SCT Progress Note Patient info: Name: Luis Manuel Mobley Jr. : 1960 PCP: LEISA Munguia PCP phone number: [phone] Date of Admission: 10/15/2021 ( Hospital Day 29 days ) Service: Hem/Onc Team A pg [id number] (09/03) Responsible Attending:Luis Manuel Goodrich Jr., MD ID: Luis Manuel Mobley Jr. is a 61 y.o. Male with hx of paroxysmal Afib, c diff colitis c/b toxic megacolon s/p bowel resection and colostomy in may 2021, FLT3+ AML with positive [employer] disease??s/p CR w/ 7+3+Midostaurin c/b relapse tx w ventoclax + gilteritinib (held since 10/08) most with pre-transplant BM and LP showing FELY, admitted for MUD allo HSCT.Today is day +22 (day 0 is 10/22), getting daptomycin and meropenem for VRE bacteremia. Baseline weight: 107.1kg Donor: MUD ABO: Donor O negative, recipient O positive HLA: 05/26 ID status: Donor and recipient both CMV negative Conditioning regimen: fludarabine, busulfan GVHD regimen: Rabbit ATG, methotrexate, tacrolimus 24 Hour Events: - Yesterday, ID recs too dc meropenem, stopped zarxio, ambulated 5 labs with PT, able to take all pomeds - Overnight, walked around unit x6 with staff, ADITYARPaulST on tele, took all po meds, ate some soup for dinner - This AM, reports in good spirit, drank some soup yesterday, wants to try some po meds today - hasn't gotten any morphine in last 2 days - Vitals: afebrile, HR 90s, - Weight 101.1kg -> 101.3kg - In/Out: +1.5 (stool 1300) - ANC 4.78 -> 7.17 Vitals: Last value Range last 24 hrs Temperature Temp: 37.1 ??C (98.8 ??F) Temp: [36.8 ??C (98.2 ??F)-37.4 ??C (99.3 ??F)] Heart Rate Heart Rate: 94 Heart Rate: [89-101] Blood Pressure BP: 132/83 BP: (132-151)/(83-91) Respiratory Rate Resp: 30 Resp: [16-30] SpO2 SpO2: 96 % SpO2: [91 %-97 %] Intake/Output Summary (Last 24 hours) at 11/13/2021 0720 Last data filed at 11/13/2021 0644 Gross per 24 hour Intake 5109.2 ml Output 3600 ml Net 1509.2 ml Patient Vitals for the past 168 hrs: Weight 11/13/21 0300 101.3 kg (223 lb 5.2 oz) 11/12/21 1550 101.4 kg (223 lb 8.7 oz) 11/12/21 0440 101.1 kg (222 lb 14.2 oz) 11/11/21 1635 101.3 kg (223 lb 5.2 oz) 11/11/21 0320 100.8 kg (222 lb 3.6 oz) 11/10/21 1711 102.3 kg (225 lb 8.5 oz) 11/10/21 0348 103.1 kg (227 lb 4.7 oz) 11/09/21 1521 104.2 kg (229 lb 11.5 oz) 11/09/21 0132 104.1 kg (229 lb 8 oz) 11/08/21 1640 104.4 kg (230 lb 2.6 oz) 11/08/21 0100 104.4 kg (230 lb 2.6 oz) 11/07/21 1545 104.3 kg (229 lb 15 oz) 11/07/21 0334 104.1 kg (229 lb 8 oz) 11/06/21 1617 104.6 kg (230 lb 9.6 oz) Exam: GENERAL:?appeared in no acute distress, no delay in response, answering all questions MOUTH: improving mucositis CARDIOVASCULAR:??rrr no mrg PULMONARY:??CTAB on RA, no increased wob GASTROINTESTINAL:??Abdomen soft nontender to palpation w +BS. Colostomy with brown watery stool in place. SKIN:??bilateral petechial rash on BLEs, improving EXT: no Edema at ankles NEUROLOGICAL:??no focal deficit Medications: Scheduled Meds: ??? loperamide 2 mg Oral BID ??? tacrolimus 0.5 mg Intravenous 2 times per day ??? DAPTOmycin 10 mg/kg/dose (Adjusted) Intravenous Q24H ??? metoprolol succinate XL 50 mg Oral Daily ??? ursodiol 300 mg Oral Daily with breakfast ??? ursodiol 600 mg Oral Daily with dinner ??? pantoprazole 40 mg Intravenous BID ??? acyclovir 250 mg/m2/dose (Anton) Intravenous Q12H ??? fluconazole 400 mg Intravenous Q24H ??? gabapentin 200 mg Oral TID ??? sodium chloride 0.9 % (flush) 5 mL Intravenous BID ??? vancomycin 125 mg Oral BID ??? flecainide 50 mg Oral BID ??? supersaturated calcium phosphate 30 mL Oral 4 Times Daily ??? [START ON 11/21/2021] sulfamethoxazole-trimethoprim DS 1 tablet Oral Daily Continuous Infusions: ??? TPN Adult 120 mL/hr at 11/12/21 1804 PRN Meds:.ciwtxgulr-rpccqhlmv-co-mag-sim, morphine, lidocaine, sodium chloride 0.9 % (flush), magnesium sulfate, magnesium sulfate, potassium chloride, potassium chloride ER, potassium chloride ER, acetaminophen, camphor-menthoL, loperamide, alum-mag hydroxide-simeth, calcium carbonate, sucralfate, fur osemide, furosemide, sodium chloride 0.9 % (flush), lidocaine, LORazepam, ondansetron, prochlorperazine, heparin, porcine, sodium chloride 0.9 % (flush) Labs: Recent Labs 11/13/21 0325 11/12/21 0350 11/11/21 1400 11/11/21 0350 11/10/21 1223 11/10/21 0335 WBC 9.4 7.2 -- 2.2* -- 0.4* HGB 8.0* 8.0* -- 6.7* -- 7.0* HCT 23.1* 22.8* -- 19.4* -- 20.0* PLATELET 12* 16* 22* 16* < > 17* NEUTROABS -- 4.78 -- -- -- 0.18* < > = values in this interval not displayed. Recent Labs 11/13/21 0325 11/12/21 0350 11/11/21 0350 NA 137 138 141 K 3.8 3.9 3.8 CL 99 99 100 CO2 26 27 26 BUN 24* 22* 21* CREATININE 0.95 0.94 1.03 Recent Labs 11/13/21 0325 11/12/21 0350 11/11/21 0350 CALCIUM 8.4* 8.7 8.6 MAGNESIUM 0.98 0.91 0.70 PHOS 2.8 2.5 2.5 Recent Labs 11/11/21 0350 11/07/21 0340 AST 32 15 ALT 29 27 ALKPHOS 124 123 BILITOT 0.4 0.5 BILIDIR 0.2 0.2 No results for input(s): INR, PT, PTT in the last 72 hours. Microbiology: BCx 11/05: NGTD BCx 11/03: 1/2 Corynebacterium species, likely contaminant BCx 11/02: VRE UA 11/03: unremarakble BCx 10/20: NGTD UA 10/20: does not look infectious Microbiology Results (Last 30 days) Procedure Component Value Units Date/Time Blood culture [[id number]] Collected: 11/10/21 1421 Lab Status: Preliminary result Specimen: Blood Updated: 11/12/21 2302 Blood Culture No growth at 2 days. Blood culture [[id number]] Collected: 11/10/21 1314 Lab Status: Preliminary result Specimen: Blood Updated: 11/12/21 1501 Blood Culture No growth at 2 days. C. Difficile Screen [[id number]] Collected: 11/09/21 1440 Lab Status: Final result Specimen: Stool Updated: 11/09/21 1548 C Diff Screen Negative Comment: Ag/Tox Neg C. diff?? Negative Clostridium difficile is not present in the specimen. If patient is having diarrhea suspected to be from an infectious cause, then Soap & Water Contact Precautions are still required. Blood culture [[id number]] Collected: 11/09/21 0428 Lab Status: Preliminary result Specimen: Blood Updated: 11/13/21 0701 Blood Culture No growth at 4 days. Blood culture [[id number]] Collected: 11/09/21 0410 Lab Status: Preliminary result Specimen: Blood Updated: 11/13/21 0701 Blood Culture No growth at 4 days. Blood culture [[id number]] Collected: 11/06/21 1224 Lab Status: Final result Specimen: Blood from Hand, Left Updated: 11/11/21 1501 Blood Culture No growth at 5 days. Blood culture [[id number]] Collected: 11/06/21 1218 Lab Status: Final result Specimen: Blood from Antecubital, Left Updated: 11/11/21 1501 Blood Culture No growth at 5 days. Blood culture [[id number]] Collected: 11/05/21 0935 Lab Status: Final result Specimen: Blood from Hand, Left Updated: 11/10/21 1501 Blood Culture No growth at 5 days. Blood culture [[id number]] Collected: 11/05/21 0928 Lab Status: Final result Specimen: Blood from Arm, Left Updated: 11/10/21 1501 Blood Culture No growth at 5 days. Blood culture [[id number]] Collected: 11/03/21 0408 Lab Status: Final result Specimen: Blood Updated: 11/08/21 0701 Blood Culture No growth at 5 days. Blood culture [[id number]] (Abnormal) Collected: 11/03/21 0356 Lab Status: Final result Specimen: Blood Updated: 11/08/21 0706 Blood Culture -- Corynebacterium species isolated : Interpretation of the importance of skin mitzy such as Coagulase Negative Staph, Viridans Strep, Corynebacteria and other Gram Positive organisms from a single Blood Culture set requires clinical correlation. Gram Stain Aerobic -- Note: This is a corrected report Growth detected in aerobic bottle. Gram Positive Rods seen Previously reported as: Gram Positive Cocci seen Results called to and read back by Denise Madera RN at 11/06/21 10:57:10 Blood culture [[id number]] (Abnormal) (Susceptibility) Collected: 11/02/21 1018 Lab Status: Final result Specimen: Blood Updated: 11/05/21 1124 Blood Culture -- Enterococcus faecium isolated * VRE, Vancomycin Resistance * Isolate saved. If future testing is required, contact the Microbiology Industrial Organizational Psychologist. Gram Stain Aerobic -- Growth detected in aerobic bottle. Gram Positive Cocci in pairs seen Gram Stain Anaerobic -- Growth detected in anaerobic bottle. Gram Positive Cocci in pairs seen Results called to and read back by Radha Marmolejo 11/03/21 02:42:51 VMartin Susceptibility Enterococcus faecium MICROSCAN METHOD Ampicillin Resistant Erythromycin Resistant Gentamicin 500 Sensitive Linezolid Sensitive Penicillin Resistant Vancomycin Resistant Linear View Blood culture [[id number]] (Abnormal) Collected: 11/02/21 1018 Lab Status: Final result Specimen: Blood Updated: 11/05/21 1125 Blood Culture -- Enterococcus faecium isolated * VRE, Vancomycin Resistance * Susceptibilities previously reported Gram Stain Anaerobic -- Growth detected in anaerobic bottle. Gram Positive Cocci in pairs seen Gram Stain Aerobic -- Growth detected in aerobic bottle. Gram Positive Cocci in pairs seen C. Difficile Screen [[id number]] Collected: 10/28/21 1207 Lab Status: Final result Specimen: Stool Updated: 10/28/21 1334 C Diff Screen Negative Comment: Ag/Tox Neg C. diff?? Negative Clostridium difficile is not present in the specimen. If patient is having diarrhea suspected to be from an infectious cause, then Soap & Water Contact Precautions are still required. Blood culture [[id number]] Collected: 10/20/21 173 Lab Status: Final result Specimen: Blood Updated: 10/25/21 2301 Blood Culture No growth at 5 days. Blood culture [[id number]] Collected: 10/20/21 173 Lab Status: Final result Specimen: Blood Updated: 10/25/21 2301 Blood Culture No growth at 5 days. Blood culture [[id number]] Collected: 10/19/21 1139 Lab Status: Final result Specimen: Blood from Antecubital, Left Updated: 10/24/21 1501 Blood Culture No growth at 5 days. Blood culture [[id number]] (Abnormal) Collected: 10/19/21 1133 Lab Status: Final result Specimen: Blood from Hand, Right Updated: 10/25/21 0910 Blood Culture -- Coagulase negative Staphylococcus species detected by PCR Interpretation of the importance of skin mitzy such as Coagulase Negative Staph, Viridans Strep, Corynebacteria and other Gram Positive organisms from a single Blood Culture set requires clinical correlation. Gram Stain Aerobic -- Growth detected in aerobic bottle. Gram Positive Cocci in clusters seen C. Difficile Screen [[id number]] Collected: 10/19/21 1020 Lab Status: Final result Specimen: Stool Updated: 10/19/21 1607 C Diff Screen Negative Comment: Ag/Tox Neg C. diff?? Negative Clostridium difficile is not present in the specimen. If patient is having diarrhea suspected to be from an infectious cause, then Soap & Water Contact Precautions are still required. COVID-19 PCR [[id number]] Collected: 10/19/21 0405 Lab Status: Final result Specimen: Nasopharyngeal Swab Updated: 10/19/21 1834 SARS-CoV-2 RNA Not Detected Comment: This result should be interpreted in combination with the clinical observations, patient history and epidemiological information in making a final diagnosis. For testing of asymptomatic individuals, assay performance characteristics and clinical utility have not been evaluated. Testing for SARS-CoV-2 (Severe acute respiratory syndrome coronavirus 2, formerly known as 2019 novel coronavirus or 2019-nCoV) to aid in the diagnosis of COVID-19 is performed using the [employer] m SARS-CoV-2 Assay as authorized by the FDA Emergency Use Authorization (EUA). This EUA assay is intended for In-vitro Diagnostic (IVD) use with respiratory specimens such as nasopharyngeal swabs collected from individuals during the acute phase of infection. This assay is performed based on the instructions for use provided by [employer] and additional guidance provided by CDC and FDA. Testing is performed in the [facility] within the Department of Pathology and Laboratory Medicine at [facility], certified under the Clinical Laboratory Improvement Amendments of 1988 (CLIA), 42 U.S.C. 263a, to perform high complexity tests. Assay performance has been verified according to clinical laboratory regulatory requirements for use with specimens collected from individuals suspected of COVID-19. Test results are provided above. A result of Not Detected indicates that the viral RNA target is not present above the limit of detection, but does not preclude SARS-CoV-2 infection. False negative results may occur if a specimen is improperly collected, transported or handled; if amplification inhibitors are present; or if inadequate numbers of viral particles are present in the specimen. When a diagnostic test is negative, the possibility of a false negative result should be considered in the context of a patient's recent exposures and the presence of clinical signs and symptoms consistent with COVID-19. A result of Detected indicates that RNA from SARS-CoV-2 was detected and the patient is infected. As required or requested by public health authorities, positive specimens may be sent for additional testing. Positive and negative predictive values for this test are highly dependent on disease prevalence. A result of Invalid indicates that neither the viral RNA targets nor the internal control target was detected. An invalid result suggests the presence of inhibitors. Recollection and re-testing is recommended in the case of an invalid result. CDC COVID-19 criteria for testing on human specimens and clinical management guidance information are available at the CDC Coronavirus Disease 2019 (COVID-19) webpage under Information for Healthcare Professionals (https://www.cdc.gov/coronavirus/2019-ncov/hcp/index.html) Additional information about this and other EUA tests can be found in provider and patient fact sheets at the following FDA website: https://www.fda.gov/medical-devices/szthdkoluwe-eubffgp-8883-jjnjb-73-uwcrxdubg- ssd-pmitteejdhpsmv-nnwzggy-devices/obvyr-wfyiqzogxih-kpej SARS-Cov-2 RNA Source ULTRASOUND SPEC Swab COVID-19 PCR [[id number]] Collected: 10/15/212032 Lab Status: Final result Specimen: Nasopharyngeal Swab Updated: 10/16/21 0004 SARS-CoV-2 RNA PCR Not Detected Comment: This result should be interpreted in combination with the clinical observations, patient history and epidemiological information. For testing of asymptomatic individuals, assay performance characteristics and clinical utility have not been evaluated. Testing for SARS-CoV-2 (Severe acute respiratory syndrome coronavirus 2, formerly known as 2019 novel coronavirus or 2019-nCoV) to aid in the diagnosis of COVID-19 is performed using the [employer] COVID-19 Direct Assay by [employer] as authorized by the FDA issued Emergency Use Authorization (EUA). This assay is intended for In-vitro Diagnostic (IVD) use with nasopharyngeal swabs collected from individuals meeting the CDC criteria for testing. The assay is performed based on the instructions for use and additional guidance provided by the FDA. Testing is performed in the Microbiology Laboratory within the Department of Pathology and Laboratory Medicine at [facility], certified under the Clinical Laboratory Improvement Amendments of 1988 (CLIA), 42 U.S.C. section 263a, to perform high complexity tests. Assay performance has been verified according to clinical laboratory regulatory requirements. Test results are provided above. A result of Not Detected indicates that the viral RNA target is not present but does not preclude SARS-CoV-2 infection. False negative results may occur if a specimen is improperly collected, transported or handled; if amplification inhibitors are present; or if inadequate numbers of viral particles are present in the specimen. A result of Detected suggests a current or recent infection and the patient is presumed to be infected. Positive and negative predictive values for this test are highly dependent on disease prevalence. A result of Invalid indicates the inability to conclusively determine the presence or absence of SARS-CoV-2 RNA in the sample which can be due to a variety of factors. Recollection is recommended in the case of an invalid result. CDC COVID-19 criteria for testing on human specimens and clinical management guidance information are available at the CDC Coronavirus Disease 2019 (COVID-19) webpage under Information for Healthcare Professionals (https://www.cdc.gov/coronavirus/2019-ncov/hcp/index.html). Additional information about this and other EUA tests can be found in provider and patient fact sheets at the following FDA website: https://www.fda.gov/medical-devices/ighapiszecz-qlvkhad-3178-vvzca-62-heskzjaqt- gts-esfrppnovlmhvz-aufqeud-devices/ffsdb-xmjeiuljqfz-pskd SARS-CoV-2 Source ULTRASOUND SPEC Swab Pertinent radiology/diagnostic studies: MRI Brain 11/10: Punctate acute infarct in the posterolateral right frontal lobe subcortical white matter, without acute hemorrhage. CT A/P w contrast 11/03 ?? IMPRESSION ?? 1. Ill defined opacities in lingula may represent pneumonia. Consider follow-up chest x-ray if indicated. 2. No abdominal or pelvic abscess seen. 3. Hiatal hernia with fat stranding around a thick walled and dilated distal esophagus. Finding may represent esophagitis. 4. Resolution of splenomegaly. 5. No enlarged abdominal and pelvic lymph nodes. 6. No abdominal or pelvic ascites. CXR 11/04 ?? IMPRESSION Radiographically the left basilar airspace opacity seen on 11/02/2021 has resolved and findings are now similar compared to a radiograph from 10/19/2021. However, it is uncertain to which extent the mild opacities seen on CT 11/03/2021 still persist or have resolved (due to difference in technique). ?? Within the limitation of single frontal view the change in positioning of the left subclavian central venous catheter in comparison to 10/19/2021 is due to the fact that the tip has flipped into the azygos vein (unchanged to 11/02/2021). Please correlate clinically if functionalityof this catheter remains adequate. TTE 11/06 1. There are no vegetations seen on this study, if clinical suspicion for endocarditis remains, consider OLEKSANDR for further evaluation 2. Left ventricle is normal in size. LVEF is estimated at 64% by biplane. There are no wall motion abnormalities. 3. Right ventricle is milldly dilated with normal systolic function. 4. There is no pericardial effusion. TTE w bubble 11/11 Left ventricular systolic function is normal. The left ventricular ejection fraction is 67% by Tony's biplane. There are no segmental wall motion abnormalities. The left atrium is normal. There is no evidence for a patent foramen ovale. There is no evidence for a patent foramen ovale visualized with agitated saline. No significant valvular abnormalities. The aortic root at the level of the sinuses of Valsalva is mildly dilated. 3.8 cm. The ascending aorta is mildly dilated. 3.7 cm. Other details as noted below. ?? ASSESSMENT/PLAN: Luis Manuel Mobley Jr. is a 61 y.o. 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 now day + 22 (day 0 is 10/22) for MUD HSCT. Tolerated stem cell infusion well on 10/22, had some rigors and nausea post- infusion that resolved with medications. Counts remain low. Neutropenic fever on 11/02, cefepime escalated to zosyn, and then todaptomycin and cefepime after 1 day when BCx positive for VRE. TTE on 10/09 with no vegetation. Tunneled line removed 11/05. Plan for total of 2 weeks of daptomycin from 1st neg BCx until 11/17. Unfortunately, re-fevered on 11/10 during stroke event, prompting escalation of abx to meropenum, which was discontinued after 2 days when BCx showed no growth and pt's ANC > 500. Patient's high ostomy output (2-3L per day) initially improved with scheduled imodium. Lovenox stopped on 11/02 due to heme positive stool and severe mucositis, restarted on 11/07, and stopped on 11/08. For mucositis, on bmx, viscous lidocaine, morphine scheduled (dilaudid causes nausea). Started TPN on 10/31 (day +9). Transitioned PO medication to IV as able. Patient was found to have an acute ischemic stroke on 11/10 after noted to be having word finding difficulty, likely embolic from A. Fib w rvr when unable to take flecanide. Neurology consulted. Will hold off starting rousuvastatin because on daptomycin. On Tele. Mental status improving, back to baseline. For his bilateral feet neuropathy, will continue gabapentin to 200mg TID as tolerated Summary Plan: - change acyclovir, fluconazole, and pantoprazole to po, when make sure can tolerate po meds, then will de-assess the mediport - plan to change tacrolimus tomorrow to po after tac level (po 1.5mg bid?) - cycle TPN at night to simulate appetite during the day - continue daptomycin until 11/17 - continue IV tac 0.5mg bid - monitor I/O and daily weights - tacrolimus level Thursday and - f/u Thursday EBV every 2 weeks Plan: #Ischemic Stroke - Hemorrhagic stroke ruled out with CTA Head - R occipital lesion identified - MRI brain acute infarct in the posterolateral right frontal lobe - Permissive hypertension for now - Not a TPA candidate per neurology - neurology following - will start aspirin when counts improve - will start rousuvastatin when off daptomycin #VRE bacteremia #Neutropenic fever - likely from gut translocation from mucositis - abx: - cefepime 10/19 - 11/02, 11/03 - 11/10 - Meropenum 11/10 - 11/12 - zosyn 11/02 - daptomycin 11/02 - 11/17 - BCx 11/03: 12 Corynebacterium species (likely contaminant) - BCx 11/05 NGTD - OLEKSANDR 11/06 no vegetation - BCx 11/10: pending #STACIE, pre-renal, improving - pre-renal, noted on 10/27 - s/p 1L Bolus on 10/27 and 10/28, encourage imodium to thicken ostomy output - mIVF (10/29 -> 11/01) - continue to monitor, on TPN so no IVF #AML #MUD HSCT Day (-7): Fludarabine: Day (-6): Fludarabine, Busulfan, Rabbit ATG: Day (-5): Fludarabine, Busulfan, Rabbit ATG: Day (-4): Fludarabine, Busulfan, Rabbit ATG: Day (-3): Fludarabine, Busulfan: Day (0): Stem Cell Infusion: Day (+1): metHOTREXate: Day (+3): metHOTREXate: Day (+6): metHOTREXate: Day (+11): metHOTREXate: General - q4h vitals - strict Is/Os 2x daily - weigh patient 2x daily, notify provider if weight increases by 1kg or more in 12 hour period ?- lasix 20mg IV prn weight gain >1 kg above admission baseline ?- lasix 20mg IV for weight gain 1 kg over 12 hours or input exceeding output by greater than 1,000 ml/12h - neutropenic precautions - incentive spirometry q2h while awake - activity as tolerated - electrolyte replacement - not checking CMV b/c both recipient and donor are CMV negative - check EBV every 14 days until day +100 (01/24/22) Chemotherapy/Support - Busulfan 204mg??day (-6) to day (-3) -??Fludarabine??61??mg 102ml infusion once over 30 minutes day -7 Then every 24 hours at 0900 for 4 doses day (-6) to day (-3) - Rabbit ATG??124.8mg over 10 hours day (-6), 166.4mg on day (-5) 208??on day (-4).?? - Day 0 stem cell infusion. Premedicate with acetaminophen 650mg, diphenhydramine 50mg) - Methotrexate??10mg??day (+1), day (+3), day (+6), day (+11). Hold for serum creatinine >2, bilirubin >5, fluid accumulation (large effusion or ascites), severe mucositis if potential need for intubation. - filgrastim??600mcg qd starting day (+7) until ANC >1500 ?? Laboratory Monitoring - weekly CMV PCR starting day +10, then weekly thereafter - IgG every 2 weeks starting day +1 to day +100 - U/A s/ reflex culture on admission, then daily on days -2, -1, 0? Transfusion parameters - Hgb <??7 - PLT <10, or if febrile??or bleeding??<20 - keep active T&S once hgb <8 ?? Prophylaxis Seizure ppx ?-phenytoin 300 day (-6) through (-1) - GI ppx ?- pantoprazole 40mg qd - mucositis ppx ?- supersaturated calcium phosphate oral solution 30ml 4x daily starting on admission until resolution of mucositis and ANC ?>500 - infection ppx ?- fluconazole 400mg qd starting day (0) ?- levofloxacin 750mg qd starting day (0) until ANC >500, changed tocefepime due to fever on 10/19, stopped on 11/12 due to ANC >500 ?- acyclovir 800mg bid starting day (-7) ?- bactrim DS 1 tablet daily from day (-7) through day (-) ?- bactrim DS 1 tablet MWF starting day (30) - GVHD ppx?-??Tacrolimus??0.5mg IV bid?? - Started day (-2),?target 5-10 trough - VOD ppx ?- lovenox 40mg qd day (-7) through (30) per Dr. Modi's note, he should continue lovenox 100mg qd until plt apx <40 then switch to VOD ppx dose. ?- ursodiol 300mg qAM??&??qPM day (-7) through day (+30) Hydration - NaCl 0.9% continuous??150ml/hr x??day (-6) ??Through (-3) ?? Pain/Nausea/Appetite - avoid acetaminophen through??day??(-3) - avoid steroid antiemetics - palonosetron 0.25mg day (-6) - aprepitant 130mg day (-6) prior to??busulfan - lorazepam 0.5mg IV q4h prn nausea, anxiety - ondansetron??8mg q8h prn nausea, vomiting beginning day (-3) - prochlorperazine 10mg IV q6h prn nausea, vomiting - use ondansetron >??prochlorperazine or promethazine >??lorazepam >??metoclopramide - olanzapine 5mg qhs starting day (-3) for 5 doses?? - morphine scheduled ?? #Paroxysmal Afib - Continue home metoprolol, flecainide ?? #Hx of provoked PE in Apr 2021 - On lovenox 100mg qd (held prior to central line placement) - Continue until plt reach approximately 40 followed by switch to prophylactic dosing - may not need upon discharge b/c s/p 3 months of AC ?? #Hx of C diff colitis - Continue home PO vancomycin as tolerated - Ostomy care - C. Diff negative 10/28 #Bilateral Feet tingling - pt reports having baseline bilateral feet tingling that was noted to be worsened on on 10/21 (2 daysafter completing 5 days of fludarabine), strength intact, no loss of sensation - start gabapentin 100mg TID (10/21 - 10/23), 200mg TID (10/23 - ) #GERD - takes protonix at home - current regimen: protonix bid, carafate, tums, #Pancytopenia 2/2 to chemo and disease - continue to monitor, transfuse as needed for support #Routine DVT PPx: none due to thrombocytopenia Diet: Neutropenic (BMT) diet Dispo: 1-[place] CODE STATUS: Attempt Cardiopulmonary Resuscitation - Inpatient Stacy Marin MD PGY1 Internal Medicine 11/13/2021 Heme/Onc/BMT Team A Pager #[phone] BMT /??HEMATOLOGY STAFF ADDENDUM? I have independently interviewed and examined this patient and have personally reviewed the relevantclinical, laboratory and radiological data with the housestaff on rounds. Please refer to the comprehensive progress note above, with which I concur. I have reviewed and endorse the plan as outlined and have made any additions/corrections below. This patient meets criteria for inpatient level of care based on the above medical complexity.? 61??year old man??with ??high-risk??(FLT3+)??AML??adm???d on 10/15 for [id number]-[id number]-MCE via Flu/Bu/ATG regimen. Pretransplant course marked by dev't of C difficile colitis with toxic megacolon, s/p [id number], with ostomy, then dev't of 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 ? Day +22??today. He was found to have word finding difficulties??72h ago.??Noted per imaging to manifest a??small??Rt occipital??ischemic stroke.?Most likely explan'n is missed flecainide dose (x1-2)in setting of intermittent (paroxysmal) Afib. ??Hwvr, we also performed a cardiac work up??(TTE withbubble study) to further assess pot'l etiologies - unrevealing. ? Because of fevers and the neuro acute events, atbx changed to Meropenem, for better gut anaerobe coverage.?Plan is to downgrade back to Cefepime if BCx neg at 48-72h, per ID rec'n.? Updated Plan: #??Severe mucositis - on morphine prn. Offered SWATCHER, but patient declined. Content with current regimen. ?- most meds switched to IV.?- TPN -> will now cycle; continue supportive measures. ?# ID:??Neutropenic fever:?-??Afebrile since 11/04?#??VRE bacteremia?? -??noted on BCx from 11/02; Repeat Cx on 11/03 growing GPC and Corynebacterium.??ECHO??- no vegetations.? - On cefepime, daptomycin??per ID -> dapto to be completed on 11/17 ([place]) ? - On Acyclovir and fluconazole ppx??; On oral Vanc for C. Diff ppx? # GVHD ppx?? - On Tacrolimus 0.5 mg IV q12h ?? -??Tac level 11/07??- 9.8; 7.8 on 11/11 - next Tac trough on 11/13, then will plan to change to oral dosing - plan to recheck Tac trough on oral dose schedule (11/18) prior to discharge home # VOD ppx - on Ursodiol ; ??-??D/C??lovenox for increased oral bleeding from mucositis? # GI , Ostomy - ??C. Diff neg. ?? -?On prn imodium for increased out put ?? # Disposition - potential discharge on Mon, 11/18 after change to oral meds, completion of Dapto and documentation of Tac trough level on oral dose schedule. ? I reviewed??his??situation and our plans with the team, RN and pt on rounds today.? Central Venous Access Statement of Need?? Tunneled catheter - clean dry intact site? Can the central IV access be removed?[?Yes?[x ] No?[ ] N/A?? If no, reason for central access:? [X]?Stem cell transplant patient or AML induction? TACHO Goodrich MD Heme/Onc Section? Claudia Claros RD - 11/13/2021 9:23 AM EDT Images from the original note were not included. Nutrition Progress Note Luis Manuel Mobley Jr. is a 61 y.o. 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 Reason for intervention: Follow up and TPN Comments: Cyclic TPN to provide 235g dextrose, 110g protein, and 60g lipid in 2,000mL, 1/2 NS over 12 hours, 166ml/hr. Increased phos by 4mmol. Increased mag by 2mEq. Adjusted Na for volume decrease. Daily BMP with mag and phos please. Weekly LFTs and TG while on TPN. Monitor wt daily I was able to discuss plan with provider Hem/Onc pager #[phone]. Nutrition Support: TPN Medication Recent History (Show up to 3 orders; newest on the left. Changes between the two mostrecent orders are indicated.) Start date and time 11/13/2021 1800 11/12/2021 1800 11/11/2021 1800 TPN Adult [[id number]] TPN Adult [[id number]] TPN Adult [[id number]] Order Status Active Last Dose in Progress Completed Last Admin New Bag at 11/12/2021 1804 by Kelsy Mujica, RN New Bag at 11/11/2021 1828 by Denise Madera, SHARON Frequency Cyclic (1800) Continuous (1800) Continuous (1800) Additives adult multivitamin 5 mL 5 mL 5 mL adult trace elements Zn-Cu-Mn-Se (Tralement) 0.5 mL 0.5 mL 0.5 mL folic acid 400 mcg 400 mcg 400 mcg Vit G9-B8-Y8-B5-B6 (B Complex) 1 mL 1 mL 1 mL Electrolytes potassium phosphate 34 mmol 30 mmol 26 mmol potassium chloride 50 mEq 54 mEq 60 mEq sodium chloride 62 mEq 80 mEq 50 mEq sodium acetate 92 mEq 142 mEq 172 mEq calcium gluconate 8 mEq 8 mEq 8 mEq magnesium sulfate 44 mEq 42 mEq 40 mEq Dextrose dextrose 70% 235 g 235 g 235 g Amino Acids amino acid 15% no.5 (ClinisoL) 110 g 110 g 110 g QS Base sterile water 590.55 mL 1,448.88 mL 1,440.2 mL Lipid fat emulsion (Intralipid) 30 % 60 g 60 g 60 g Energy Contribution Proteins 440 kcal 440 kcal 440 kcal Dextrose 798.97 kcal 798.97 kcal 798.97 kcal Lipids 600 kcal 600 kcal 600 kcal Total 1,838.97 kcal 1,838.97 kcal 1,838.97 kcal Electrolyte Ion Calculated Amount Sodium 154 mEq 222 mEq 222 mEq Potassium 99.87 mEq 98 mEq 98.13 mEq Calcium 8 mEq 8 mEq 8 mEq Magnesium 44 mEq 42 mEq 40 mEq Aluminum -- -- -- Phosphate 37 mmol 33 mmol 29 mmol Chloride 112 mEq 134 mEq 110 mEq Acetate 185.13 mEq 235.13 mEq 265.13 mEq Chloride: Acetate Ratio 0.605 0.57 0.415 Trace Elements Copper 0.15 mg 0.15 mg 0.15 mg Manganese 27.5 mcg 27.5 mcg 27.5 mcg Selenium 30 mcg 30 mcg 30 mcg Zinc 1.5 mg 1.5 mg 1.5 mg Other Total Amino Acid 110 g 110 g 110 g Total Amino Acid/kg 1.09 g/kg 1.09 g/kg 1.09 g/kg Glucose Infusion Rate 3.22 mg/kg/min 1.61 mg/kg/min 1.61 mg/kg/min Osmolarity 1,469.32 1,060.82 1,059.52 Volume 1,992 mL 2,880 mL 2,880 mL Rate 166 mL/hr 120 mL/hr 120 mL/hr Dosing Weight 101.3 kg 101.1 kg 100.8 kg Infusion Site Central Central Central Total Multi-vitamins 5 mL 5 mL 5 mL Lab Results Component Value Date NA 137 11/13/2021 K 3.8 11/13/2021 CL 99 11/13/2021 CO2 26 11/13/2021 BUN 24 (H) 11/13/2021 CREATININE 0.95 11/13/2021 ESTGFR 86 11/13/2021 MAGNESIUM 0.98 11/13/2021 CALCIUM 8.4 (L) 11/13/2021 PHOS 2.8 11/13/2021 AST 32 11/11/2021 ALT 29 11/11/2021 ALKPHOS 124 11/11/2021 BILITOT 0.4 11/11/2021 BILIDIR 0.2 11/11/2021 TRIG 171 07/13/2021 HA1C 5.8 (H) 11/11/2021 [id number] 1,799 (H) 08/01/2021 SFOLATE 5.6 08/01/2021 IRON [...] sat monitor, IV sites Other Sites: ostomy, R DL PICC Relevant medications: BMX prn, imodium, protonix, caphosol, prograf, zofran prn Last Bowel Movement: 11/13/21 Intake/Output Summary (Last 24 hours) at 11/13/2021 0923 Last data filed at 11/13/2021 0644 Gross per 24 hour Intake 5109.2 ml Output 3450 ml Net 1659.2 ml Admit Weight: 107.1 kg Estimated body mass index is 32.33 kg/m?? as calculated from the following: Height as of this encounter: 177 cm (5' 9.69). Weight as of this encounter: 101.3 kg (223 lb 5.2 oz). Anton Body Weight: 74.6 kg Usual Body Weight: 235 lbs per pt Wt Readings from Last 10 Encounters: 11/13/21 101.3 kg (223 lb 5.2 oz) 10/15/21 107.8 kg (237 lb 9.6 oz) 10/04/21 107.2 kg (236 lb 6.4 oz) 09/27/21 109 kg (240 lb 6.4 oz) 09/16/21 105.9 kg (233 lb 6.4 oz) 09/12/21 106.6 kg (235 lb) 09/09/21 102.8 kg (226 lb 9.6 oz) 09/05/21 106.8 kg (235 lb 6.4 oz) 08/26/21 102.8 kg (226 lb 9.6 oz) 08/19/21 100.2 kg (221 lb) Patient Vitals for the past 168 hrs: Weight 11/13/21 0300 101.3 kg (223 lb 5.2 oz) 11/12/21 1550 101.4 kg (223 lb 8.7 oz) 11/12/21 0440 101.1 kg (222 lb 14.2 oz) 11/11/21 1635 101.3 kg (223 lb 5.2 oz) 11/11/21 0320 100.8 kg (222 lb 3.6 oz) 11/10/21 1711 102.3 kg (225 lb 8.5 oz) 11/10/21 0348 103.1 kg (227 lb 4.7 oz) 11/09/21 1521 104.2 kg (229 lb 11.5 oz) 11/09/21 0132 104.1 kg (229 lb 8 oz) 11/08/21 1640 104.4 kg (230 lb 2.6 oz) 11/08/21 0100 104.4 kg (230 lb 2.6 oz) 11/07/21 1545 104.3 kg (229 lb 15 oz) 11/07/21 0334 104.1 kg (229 lb 8 oz) 11/06/21 1617 104.6 kg (230 lb 9.6 oz) Assessment: Estimated needs: Calories: 1865 (25 kcal/kg IBW) Protein: 89-112 grams (1.2-1.5 g/kg IBW) Nutrition Focused Physical Exam (NFPE): Performed on 10/28/21. Subcutaneous fat loss at Orbital region: None present Upper arm region (triceps/biceps): None present Thoracic and lumbar region (ribs, lower back and maxillary line): Not assessed Lean muscle loss to Orthodoxy region (temporalis muscle): None present Clavicle bone region (pectoralis major): None present Dorsal hand (interosseous muscle): None present Shoulder (deltoid): None present Scapular bone region (latissimus dorsi, trapezius muscles): Not assessed Thigh region (quadriceps muscle): None present Posterior calf region (gastrocnemius muscle): None present Fluid accumulation: Not assessed Nutrition intake and intake history/Interview: At time of visit, pt eating hard boiled eggs for breakfast. He reported he did not eat breakfast or lunch yesterday, had soup for dinner. He reported mucositis is improving, although he is still primarily eating softer foods. He is no longer eating the snacks from dietary, will d/c. TPN switched to cyclic today. 40mEq of KCl repletion noted today. 11/11: Patient with life safety event yesterday. 40mEq KCl repletion noted yesterday. 11/09: Message from pharmacy re: K of 4.6. Reduced K in TPN by 20mEq. 11/07: 40mEq of KCl repletion noted yesterday. 11/06: 60mEq of KCl repletion noted yesterday. 11/04: Luis Manuel reported a poor appetite today, not taking solids d/t mucositis and primarily taking in water as fluids, gatorade at bedside. Ileostomy output high, although per pt output is stable. Continue to monitor wt, below reported UBW. Protein-calorie Malnutrition: Not enough data to assess (RAFA Barnes J Parenteral Enteral Nutr. 2011; 36(3): 273-83) Nutrition to continue to follow up while inpatient. 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 Found to have R sided occipital ischemic stroke. Not a TPA or aspirin candidate Relevant PMH: s/p bowel resection/colectomy d/t toxic megacolon, Cdiff, Bilateral PE, hx paroxysmal AFIB, 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 Significant 24 hour events: 11/12 AM: Q6 hour neuro checks unremarkable. Afebrile, VSS, walked around unit x 6 with staff. NSR-STon tele. Repleting 2 runs Kcl. Took all PO meds and ate some soup for dinner. Stool and urine heme positive. Baseline Weight: 107.1 kg AM weight: 101.4 kg PM weight: 101.3 Neuro: WDL slow to respond, word finding difficulty Q4 neuro checks CV: .WDL except, rhythm NSR-ST, EF 67 Telemetry: Yes Neurovasc: .WDL except, neurovascular assessment lower N/T bilateral feet @ baseline VTE Prophylaxis: SCDs on intermittently none Pulmonary: .WDL except, rhythm/pattern, mucous membranes PICHARDO, dim O2 Device: None (Room air) GI: .WDL except, stool ileostomy; poor PO intake, mucositis. c.diff neg on 11/09 Illeostomy: last changed 11/11 : WDL heme +, passed large blood clots 11/10 Musculoskeletal: WDL generalized weakness Pain/Location: 6 (11/12/212013) / mouth (nondental) (11/12/212013) declining morphine/BMX Mobility Plan: SBA Bed alarm sensitivity: Refuses Skin: .WDL except, color R cheek,upper palate and tongue lesions, throat red, BLEs petechiae, Bruising Psych/Social: Shekharfredwina Paula Action List Q6WA neuro checks- notifiy of any new changes TPN @120mL/hr IV Daptomycin for bacteremia Ostomy care, monitor output Kelsy Mujica RN - 11/12/2021 3:56 PM EDT Illness Severity [x] Stable [] Watcher [] Unstable Patient Summary Reason for admission: Day +21 (11/12) of MUD allo SCT for 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 Tele: NSR. Per tele, at times in and out of accelerated junctional rhythm this AM. Tania aware. C/o mucositis pain, declined PRN medications/BMX. Able to take scheduled PO medications, still hurts, however. Neuro checks as documented, A+Ox4, following commands w/o issue. Ostomy with liquid stool output. Continent of urine thought the day. Ambulated 5 laps with PT today. Zarxio stopped today. One time 2g IV mag given per OCT. Meropenum d/c'd per . Changed to q6WA neuro checks. Significant other at bedside. Resting between care. 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 Still with mouth pain, liquid stool via ostomy. Physical Exam: Last value Range last 24 hrs Temperature Temp: 36.8 ??C (98.2 ??F) Temp: [36.7 ??C (98.1 ??F)-37.4 ??C (99.3 ??F)] Heart Rate Heart Rate: 89 Heart Rate: [89-101] Blood Pressure BP: (!) 136/91 BP: (136-161)/(88-95) Respiratory Rate Resp: 17 Resp: [16-28] SpO2 SpO2: 94 % SpO2: [93 %-97 %] General: NAD Head: NCAT Cardiovascular: R chest port c/d/i Pulmonary: Comfortable on RA Abdomen: Soft, NT/ND, colostomy in place with brown/green liquid stool Ext: No deformity. RUE PICC. Skin: No rash on visible skin Neuro: Alert, moves all 4 Psych: Euthymic, pleasant Laboratory: WBC 7.2 (ANC 4,780), Hgb 8, Plt 16 Cr 0.94 Micro: 11/10 BCx x2 - NGTD 11/09 C diff screen - negative 11/09 BCx x2 - NGTD 11/06 BCx x2 - NG 11/05 BCx x2 - NG 11/03 BCx x2 - Corynebacterium species in 1/4 vials 11/02 BCx x2 - VRE in 4/4 vials 10/28 C diff screen - negative 10/20 BCx x2 - NG 10/19 BCx x2 - CoNS in 1/4 vials 10/19 C diff screen - negative 10/19 SARS-CoV-2 PCR - not detected 10/15 SARS-CoV-2 PCR - not detected ?? Impression: Luis Manuel Mobley Jr. 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 He underwent RUE PICC placement 11/04 and removal of L sided tunneled PICC 11/05. He still has R chest por. He also has acute R frontal lobe stroke (he has h/o a fib). As his ANC has come up, his fevers are improved. We rec d/c meropenem for neutropenic fever and continuing daptomycin for treatment of VRE bacteremia. Given that his port is retained, one could consider repeating BCx about 1 wk after his treatment for VRE bacteremia is completed. Recommendations: - continue daptomycin 845mg (10mg/kg based on ABW 84kg) IV q24 hr - treatment duration: 2 wks from neg BCx date for VRE, 11/03-11/17 - while on above, weekly CBC w/ diff, CMP, CPK - d/c IV meropenem - continue prophy acyclovir, fluconazole, Bactrim per Hematology team Patient discussed with ID attending Dr. Jones. Recommendations discussed with primary treating team. ID consult service will sign off. Please page ID Green team (pager [phone]) with questions or concerns. Jayme Tinajero MD 11/12/2021 2:51 PM I interviewed and examined the patient independently from Dr. Tinajero, but agree with her findings and recommendations after discussion with her and review of her note. I also independently reviewed all pertinent labs, microbiology and radiology. Mr. Mobley is doing well, with much improved spirits given resolving mucositis in setting of rising ANC, and I think we can now provide final antibiotic recommendations assuming all continues well. Davion Jonse MD Luis Manuel Pride SCREEN ROLLER - 11/12/2021 2:49 PM EDT Chart reviewed. Discussed patients daily goals, and plan for potential discharge during IDR. Attempted to meet with patient to assess emotional needs r/t extended hospitalization. Patient not available. Will continue to monitor. Following for SCREEN ROLLER support, including coping through illness process and resource needs, through disposition. Luis Manuel Pride SCREEN ROLLER Softlines Supervisor Hematology/Oncology [facility] Specialties Pager- [phone] Roderick Jones, PT - 11/12/2021 12:38 PM EDT Physical Therapy Note Treatment Number PT: 3 Patient profile: Luis Manuel Butts Kishor Anne is a 61 y.o. right handed male admitted on 10/15/2021. Pt admitted for planned admission for MUD HSCT; he underwent 10/22/21 SCT and issues with nausea, rigors, and tachycardia post procedure. Patient has also had issues with STACIE, heartburn, nausea, high ostomy output, and heme + stool. Also issues with BC positive for VRE, and had ischemic stroke on 11/10/21 (likely from a-fib with RVR). Pt with hx of??paroxysmal Afib,??neuropathy, GERD, BPH, c diff colitis c/b toxic megacolon s/p bowelresection and colostomy??in may 2021,??FLT3+ AML with positive [employer] disease??s/p CR w/ 7+3+Midostaurin c/b relapse tx w ventoclax + gilteritinib (held since 10/08) with pre-transplant BM and LP showing FELY. ?? He is being managed on . Interval History: Noted per MD notes: Neutropenic fever on 11/02, cefepime escalated to zosyn, and then to daptomycin and cefepime after 1 day when BCx positive for VRE. TTE on 10/09 with no vegetation. Tunneled line removed 11/05. Plan for total of 2 weeks of daptomycin from 1st neg BCx until 11/17. Unfort unately, re-fevered on 11/10 during stroke event, prompting escalation of atbx to meropenum. Plan for48 hours until 11/12 of coverage before de-escalation and pending culture data. Patient was found to have an acute ischemic stroke on 11/10 after noted to be having word finding difficulty, likely embolic from A. Fib w rvr when unable to take flecanide. Neurology consulted. Will hold off starting rousuvastatin because on daptomycin. Per last Hematology/ Oncology note on 11/12: - Yesterday, tac level 7.8, TTE bubble wo PFO - Overnight, occasionally be slow to follow commands, NSR-ST on tele, able to take po meds, declinedprn pain meds/bmx - This AM, reports only drank water yesterday, but will try a milk shake today, alert and orientated - Weight: 100.8kg -> 101.1kg - In/Out: +853 - Hgb 6.7 -> 8 - ANC 1.64 -> 4.78 - Mg 0.91, repleted ?? Social History: Home set-up: Lives with his Partner, Chai, and Chai works but will be taking time off when he is d/c'd home. It is a 2 level home, but he stays on one level, laundry is in the basement. Bathroom Set-up: walk in shower with built in seat Stairs: 3 steps with a door or counter to hold onto. Baseline Mobility: walks without a walker, has not been driving since Apr due to double vision, independent with ADLs, enjoys TV, Football and puttering around the house. 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 Patient empties own ostomy, partner helps change ostomy. Sleeps in a regular bed. Equipment at home: has a rolling walker, and built in shower seat. Fall history: none. ?? Precautions/Special Considerations: Neutropenic Precautions. Lines: Right side ostomy. Activity Orders: activity as tolerated Diet: neutropenic diet. ?? Mobility and Positioning Recommendations: ?? Supervision for transfers ?? Please encourage up to chair for meal times as able. ?? Pt encouraged to ambulate frequently with staff, no AD needed, supervision, with chair follow when in hallways >/= 3 times daily as able. Subjective: I want to walk without the walker Objective: Patient seen for physical therapy and demonstrated the following: Pain: Pt reports no pain throughout session Vital Signs: VSS on RA throughout session, no tachy events noted BP once sitting EOB: 147/91 mmHg ?? Pt was sleeping upon arrival of therapy and once awaken, was agreeable and motivated to work withtherapy ?? Pt was able to stew briefs independently ?? HOB elevated ~45 degrees, supine to sit EOB independently ?? assisted pt in donning socks ?? Sit to stand with FWW, independently ?? Pt ambulated ~50' with use of FWW, supervision, line management and chair follow ?? Pt ambulated ~100' without AD, CGA, NBOS, min-mod trunk swaying that improved over time, min verbal cueing for BHARAT. No LOB noted ?? Pt ambulated 600' without AD, close supervision, slight decreased in gait speed with increased distance ?? Stand to sit on EOB, independent, good eccentric control and technique ?? Pt left sitting EOB with all needs met and with call gaming in reach sitting beside him, RN aware following visit. Education: Pt educated on importance of getting OOB, transfer training, stair training, gait training, energy conservation techniques Assessment: Luis Manuel Molbey was seen today for physical therapy treatment session for continuation of POC. Pt continues to be pleasant to work with for therapy and continues to be motivated. Pt presents with slight left sided facial droop however, is able to follow commands and track with B eyes, state colors, and identify objects. Today's focus was on gait training. Pt was able to progress his gaittraining without an AD, demonstrating good carry over and fair endurance noted since last session. Educated pt on the importance of using his FWW when he is feeling tired or weak, pt verbally agreed. Although pt has AML, he continues to be able to ambulate functional distances without severely limiting his endurance. Pt will benefit from ongoing therapeutic interventions to achieve therapy goals. Discharge Recommendations: Based on the current findings, Anticipated Discharge Disposition (PT): home with home health when medically ready for hospital discharge. Consult Recommendations: No other consults recommended at this time. Equipment needs: Anticipated Equipment Needs at Discharge (PT): to be determined Physical Therapy Goals: To be achieved by 12/02/21: ?? 1. Pt. to demonstrate knowledge of safety limitations and precautions and will appropriately requestassistance for functional activities and to mobilize. 2. Pt. to demonstrate understanding of AROM and breathing exercises. 3. Pt. to perform bed mobility independently. 4. Pt. to perform Sit<->stand and Stand Pivot transfers independently using no assistive device. 5. Pt. to ambulate 500 feet with modified independence using least restrictive or no device. 6. Pt. to ambulate up/down 3 step/stairs using one rail with modified independence. MET 7. Family or caregiver to demonstrate understanding of therapeutic interventions to support the careof the patient. Plan: Therapy Frequency (PT): 1-3 times/wk for as outlined in initial evaluation. Patient agrees with plan as stated. Time IN / OUT: 7995-0913 Total Minutes, Physical Therapy: 28 Billing Code: TEF 2 [facility] Rooney [facility] Inpatient Rehabilitation Department Fadumo Ortiz PTA Pager: [phone] Physical Therapy Inpatient Rehab Department I have read the above note, and agree with the above stated plan. I updated above Interval history and patient profile as patient had a new ischemic stroke as of 11/10/21 and BC also with VR. He is without new mobility issues, and BREAKER ENGINEER informed me of patient's status. Above goals remain current and ongoing- should review stairs again prior to d/c after recent events. RODERICK JONES, PT Evelina Martino - 11/12/2021 11:31 AM EDT Foot massage given by VIRGINIA Lassiter. Luis Manuel house, stating That felt so good!. [facility] will continue to try and see 2-3x/week. Claudia Claros RD - 11/12/2021 10:41 AM EDT Images from the original note were not included. Nutrition Progress Note Luis Manuel L Kishor Jr. is a 61 y.o. 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 Reason for intervention: Follow up and TPN Comments: TPN to provide 235g dextrose, 110g protein, and 60g lipid in 2,880mL. 1/2 NS. Increased phos by 4mmol. Increased mag by 2mEq. Adjusted Na d/t NaCl no longer on shortage. Daily BMP with mag and phos please. Weekly LFTs and TG while on TPN. Monitor wt daily I was able to discuss plan with provider Hem/Onc pager #[phone]. Nutrition Support: TPN Medication Recent History (Show up to 3 orders; newest on the left. Changes between the two mostrecent orders are indicated.) Start date and time 11/12/2021 1800 11/11/2021 1800 11/09/2021 1800 TPN Adult [[id number]] TPN Adult [[id number]] TPN Adult [[id number]] Order Status Active Last Dose in Progress Completed Last Admin New Bag at 11/11/2021 1828 by Denise Madera, RN New Bag at 11/10/2021 1840 by Julianne Graham, RN Frequency Continuous (1800) Continuous (1800) Continuous (1800) Additives adult multivitamin 5 mL 5 mL 5 mL adult trace elements Zn-Cu-Mn-Se (Tralement) 0.5 mL 0.5 mL 0.5 mL folic acid 400 mcg 400 mcg 400 mcg Vit U6-W7-M2-B5-B6 (B Complex) 1 mL 1 mL 1 mL Electrolytes potassium phosphate 30 mmol 26 mmol 22 mmol potassium chloride 54 mEq 60 mEq 56 mEq sodium chloride 80 mEq 50 mEq 20 mEq sodium acetate 142 mEq 172 mEq 202 mEq calcium gluconate 8 mEq 8 mEq 8 mEq magnesium sulfate 42 mEq 40 mEq 36 mEq Dextrose dextrose 70% 235 g 235 g 235 g Amino Acids amino acid 15% no.5 (ClinisoL) 110 g 110 g 110 g QS Base sterile water 1,448.88 mL 1,440.2 mL 1,437.02 mL Lipid fat emulsion (Intralipid) 30 % 60 g 60 g 60 g Energy Contribution Proteins 440 kcal 440 kcal 440 kcal Dextrose 798.97 kcal 798.97 kcal 798.97 kcal Lipids 600 kcal 600 kcal 600 kcal Total 1,838.97 kcal 1,838.97 kcal 1,838.97 kcal Electrolyte Ion Calculated Amount Sodium 222 mEq 222 mEq 222 mEq Potassium 98 mEq 98.13 mEq 88.27 mEq Calcium 8 mEq 8 mEq 8 mEq Magnesium 42 mEq 40 mEq 36 mEq Aluminum -- -- -- Phosphate 33 mmol 29 mmol 25 mmol Chloride 134 mEq 110 mEq 76 mEq Acetate 235.13 mEq 265.13 mEq 295.13 mEq Chloride: Acetate Ratio 0.57 0.415 0.26 Trace Elements Copper 0.15 mg 0.15 mg 0.15 mg Manganese 27.5 mcg 27.5 mcg 27.5 mcg Selenium 30 mcg 30 mcg 30 mcg Zinc 1.5 mg 1.5 mg 1.5 mg Other Total Amino Acid 110 g 110 g 110 g Total Amino Acid/kg 1.09 g/kg 1.09 g/kg 1.06 g/kg Glucose Infusion Rate 1.61 mg/kg/min 1.61 mg/kg/min 1.62 mg/kg/min Osmolarity 1,060.82 1,059.52 1,049.89 Volume 2,880 mL 2,880 mL 2,880 mL Rate 120 mL/hr 120 mL/hr 120 mL/hr Dosing Weight 101.1 kg 100.8 kg 104.1 kg Infusion Site [facility] Total Multi-vitamins 5 mL 5 mL 5 mL Lab Results Component Value Date NA 138 11/12/2021 K 3.9 11/12/2021 CL 99 11/12/2021 CO2 27 11/12/2021 BUN 22 (H) 11/12/2021 CREATININE 0.94 11/12/2021 ESTGFR 87 11/12/2021 MAGNESIUM 0.91 11/12/2021 CALCIUM 8.7 11/12/2021 PHOS 2.5 11/12/2021 AST 32 11/11/2021 ALT 29 11/11/2021 ALKPHOS 124 11/11/2021 BILITOT 0.4 11/11/2021 BILIDIR 0.2 11/11/2021 TRIG 171 07/13/2021 HA1C 5.8 (H) 11/11/2021 [id number] 1,799 (H) 08/01/2021 SFOLATE 5.6 08/01/2021 IRON [...] No Injury Device Sites: O2 sat monitor, SCD's/venodynes, IV sites, ECG Leads Other Sites: ostomy, R DL PICC Relevant medications: BMX prn, imodium, protonix, caphosol, prograf, zofran prn Last Bowel Movement: 11/11/21 Intake/Output Summary (Last 24 hours) at 11/12/2021 1041 Last data filed at 11/12/2021 0800 Gross per 24 hour Intake 4103 ml Output 2675 ml Net 1428 ml Admit Weight: 107.1 kg Estimated body mass index is 32.27 kg/m?? as calculated from the following: Height as of this encounter: 177 cm (5' 9.69). Weight as of this encounter: 101.1 kg (222 lb 14.2 oz). Anton Body Weight: 74.6 kg Usual Body Weight: 235 lbs per pt Wt Readings from Last 10 Encounters: 11/12/21 101.1 kg (222 lb 14.2 oz) 10/15/21 107.8 kg (237 lb 9.6 oz) 10/04/21 107.2 kg (236 lb 6.4 oz) 09/27/21 109 kg (240 lb 6.4 oz) 09/16/21 105.9 kg (233 lb 6.4 oz) 09/12/21 106.6 kg (235 lb) 09/09/21 102.8 kg (226 lb 9.6 oz) 09/05/21 106.8 kg (235 lb 6.4 oz) 08/26/21 102.8 kg (226 lb 9.6 oz) 08/19/21 100.2 kg (221 lb) Patient Vitals for the past 168 hrs: Weight 11/12/21 0440 101.1 kg (222 lb 14.2 oz) 11/11/21 1635 101.3 kg (223 lb 5.2 oz) 11/11/21 0320 100.8 kg (222 lb 3.6 oz) 11/10/21 1711 102.3 kg (225 lb 8.5 oz) 11/10/21 0348 103.1 kg (227 lb 4.7 oz) 11/09/21 1521 104.2 kg (229 lb 11.5 oz) 11/09/21 0132 104.1 kg (229 lb 8 oz) 11/08/21 1640 104.4 kg (230 lb 2.6 oz) 11/08/21 0100 104.4 kg (230 lb 2.6 oz) 11/07/21 1545 104.3 kg (229 lb 15 oz) 11/07/21 0334 104.1 kg (229 lb 8 oz) 11/06/21 1617 104.6 kg (230 lb 9.6 oz) 11/06/21 0356 104 kg (229 lb 4.5 oz) 11/05/21 1559 104.7 kg (230 lb 13.2 oz) Assessment: Estimated needs: Calories: 1865 (25 kcal/kg IBW) Protein: 89-112 grams (1.2-1.5 g/kg IBW) Nutrition Focused Physical Exam (NFPE): Performed on 10/28/21. Subcutaneous fat loss at Orbital region: None present Upper arm region (triceps/biceps): None present Thoracic and lumbar region (ribs, lower back and maxillary line): Not assessed Lean muscle loss to Orthodoxy region (temporalis muscle): None present Clavicle bone region (pectoralis major): None present Dorsal hand (interosseous muscle): None present Shoulder (deltoid): None present Scapular bone region (latissimus dorsi, trapezius muscles): Not assessed Thigh region (quadriceps muscle): None present Posterior calf region (gastrocnemius muscle): None present Fluid accumulation: Not assessed Nutrition intake and intake history/Interview: 11/11: Patient with life safety event yesterday. 40mEq KCl repletion noted yesterday. 11/09: Message from pharmacy re: K of 4.6. Reduced K in TPN by 20mEq. 11/07: 40mEq of KCl repletion noted yesterday. 11/06: 60mEq of KCl repletion noted yesterday. 11/04: Luis Manuel reported a poor appetite today, not taking solids d/t mucositis and primarily taking in water as fluids, gatorade at bedside. Ileostomy output high, although per pt output is stable. Continue to monitor wt, below reported UBW. Protein-calorie Malnutrition: Not enough data to assess (RAFA Barnes J Parenteral Enteral Nutr. 2011; 36(3): 273-83) Nutrition to continue to follow up while inpatient. Thank you, Claudia Claros RD Pager #[phone] Luis Manuel Goodrich Jr., MD - 11/12/2021 7:36 AM EDT Images from the original note were not included. Inpatient Hematology/Oncology/SCT Progress Note Patient info: Name: Luis Manuel Mobley Jr. : 1960 PCP: LEISA Munguia PCP phone number: [phone] Date of Admission: 10/15/2021 ( Hospital Day 28 days ) Service: Hem/Onc Team A pg [id number] (09/03) Responsible Attending:Luis Manuel Goodrich Jr., MD ID: Luis Manuel Mobley Jr. is a 61 y.o. 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 Baseline weight: 107.1kg Donor: MUD ABO: Donor O negative, recipient O positive HLA: 05/26 ID status: Donor and recipient both CMV negative Conditioning regimen: fludarabine, busulfan GVHD regimen: Rabbit ATG, methotrexate, tacrolimus 24 Hour Events: - Yesterday, tac level 7.8, TTE bubble wo PFO - Overnight, occasionally be slow to follow commands, NSR-ST on tele, able to take po meds, declinedprn pain meds/bmx - This AM, reports only drank water yesterday, but will try a milk shake today, alert and orientated - Weight: 100.8kg -> 101.1kg - In/Out: +853 - Hgb 6.7 -> 8 - ANC 1.64 -> 4.78 - Mg 0.91, repleted Vitals: Last value Range last 24 hrs Temperature Temp: 36.9 ??C (98.4 ??F) Temp: [36.7 ??C (98.1 ??F)-37.9 ??C (100.2 ??F)] Heart Rate Heart Rate: (!) 101 Heart Rate: [92-102] Blood Pressure BP: (!) 161/92 BP: (133-161)/(78-95) Respiratory Rate Resp: 22 Resp: [22-28] SpO2 SpO2: 93 % SpO2: [92 %-95 %] Intake/Output Summary (Last 24 hours) at 11/12/2021 0736 Last data filed at 11/12/2021 0638 Gross per 24 hour Intake 4478 ml Output 3625 ml Net 853 ml Patient Vitals for the past 168 hrs: Weight 11/12/21 0440 101.1 kg (222 lb 14.2 oz) 11/11/21 1635 101.3 kg (223 lb 5.2 oz) 11/11/21 0320 100.8 kg (222 lb 3.6 oz) 11/10/21 1711 102.3 kg (225 lb 8.5 oz) 11/10/21 0348 103.1 kg (227 lb 4.7 oz) 11/09/21 1521 104.2 kg (229 lb 11.5 oz) 11/09/21 0132 104.1 kg (229 lb 8 oz) 11/08/21 1640 104.4 kg (230 lb 2.6 oz) 11/08/21 0100 104.4 kg (230 lb 2.6 oz) 11/07/21 1545 104.3 kg (229 lb 15 oz) 11/07/21 0334 104.1 kg (229 lb 8 oz) 11/06/21 1617 104.6 kg (230 lb 9.6 oz) 11/06/21 0356 104 kg (229 lb 4.5 oz) 11/05/21 1559 104.7 kg (230 lb 13.2 oz) Exam: GENERAL:?appeared in no acute distress, answering question (place, person, president of [place]) appropriately MOUTH: blood noted at posterior oropharynx, diffuse inflammation and blood in oral mucosa CARDIOVASCULAR:??rrr no mrg PULMONARY:??CTAB on RA, no increased wob GASTROINTESTINAL:??Abdomen soft nontender to palpation w +BS. Colostomy with brown watery stool in place. SKIN:??bilateral petechial rash on BLEs, improving EXT: no Edema at ankles NEUROLOGICAL:??no focal deficit Medications: Scheduled Meds: ??? MEROpenem 1 g Intravenous Q8H ??? loperamide 2 mg Oral BID ??? tacrolimus 0.5 mg Intravenous 2 times per day ??? DAPTOmycin 10 mg/kg/dose (Adjusted) Intravenous Q24H ??? metoprolol succinate XL 50 mg Oral Daily ??? ursodiol 300 mg Oral Daily with breakfast ??? ursodiol 600 mg Oral Daily with dinner ??? pantoprazole 40 mg Intravenous BID ??? acyclovir 250 mg/m2/dose (Anton) Intravenous Q12H ??? fluconazole 400 mg Intravenous Q24H ??? gabapentin 200 mg Oral TID ??? sodium chloride 0.9 % (flush) 5 mL Intravenous BID ??? vancomycin 125 mg Oral BID ??? flecainide 50 mg Oral BID ??? supersaturated calcium phosphate 30 mL Oral 4 Times Daily ??? [START ON 11/21/2021] sulfamethoxazole-trimethoprim DS 1 tablet Oral Daily ??? filgrastim-sndz 600 mcg Subcutaneous Daily Continuous Infusions: ??? TPN Adult 120 mL/hr at 11/11/21 1828 PRN Meds:.dzunzfnuk-bxihpynzz-wz-mag-sim, morphine, lidocaine, sodium chloride 0.9 % (flush), magnesium sulfate, magnesium sulfate, potassium chloride, potassium chloride ER, potassium chloride ER, acetaminophen, camphor-menthoL, loperamide, alum-mag hydroxide-simeth, calcium carbonate, sucralfate, fur osemide, furosemide, sodium chloride 0.9 % (flush), lidocaine, LORazepam, ondansetron, prochlorperazine, heparin, porcine, sodium chloride 0.9 % (flush) Labs: Recent Labs 11/12/21 0350 11/11/21 1400 11/11/21 0350 11/10/21 1223 11/10/21 0335 WBC 7.2 -- 2.2* -- 0.4* HGB 8.0* -- 6.7* -- 7.0* HCT 22.8* -- 19.4* -- 20.0* PLATELET 16* 22* 16* < > 17* NEUTROABS 4.78 -- -- -- 0.18* < > = values in this interval not displayed. Recent Labs 11/12/21 0350 11/11/21 0350 11/10/21 0335 NA 138 141 140 K 3.9 3.8 3.9 CL 99 100 100 CO2 27 26 28 BUN 22* 21* 23* CREATININE 0.94 1.03 0.96 Recent Labs 11/12/21 0350 11/11/21 0350 11/10/21 0335 CALCIUM 8.7 8.6 8.4* MAGNESIUM 0.91 0.70 0.72 PHOS 2.5 2.5 2.7 Recent Labs 11/11/21 0350 11/07/21 0340 AST 32 15 ALT 29 27 ALKPHOS 124 123 BILITOT 0.4 0.5 BILIDIR 0.2 0.2 No results for input(s): INR, PT, PTT in the last 72 hours. Microbiology: BCx 11/05: NGTD BCx 11/03: 1/2 Corynebacterium species, likely contaminant BCx 11/02: VRE UA 11/03: unremarakble BCx 10/20: NGTD UA 10/20: does not look infectious Microbiology Results (Last 30 days) Procedure Component Value Units Date/Time Blood culture [[id number]] Collected: 11/10/21 1421 Lab Status: Preliminary result Specimen: Blood Updated: 11/11/212301 Blood Culture No growth at 1 day. Blood culture [[id number]] Collected: 11/10/21 1314 Lab Status: Preliminary result Specimen: Blood Updated: 11/11/21 1501 Blood Culture No growth at 1 day. C. Difficile Screen [[id number]] Collected: 11/09/21 1440 Lab Status: Final result Specimen: Stool Updated: 11/09/21 1548 C Diff Screen Negative Comment: Ag/Tox Neg C. diff?? Negative Clostridium difficile is not present in the specimen. If patient is having diarrhea suspected to be from an infectious cause, then Soap & Water Contact Precautions are still required. Blood culture [[id number]] Collected: 11/09/21 0428 Lab Status: Preliminary result Specimen: Blood Updated: 11/12/21 0701 Blood Culture No growth at 3 days. Blood culture [[id number]] Collected: 11/09/21 0410 Lab Status: Preliminary result Specimen: Blood Updated: 11/12/21 0701 Blood Culture No growth at 3 days. Blood culture [[id number]] Collected: 11/06/21 1224 Lab Status: Final result Specimen: Blood from Hand, Left Updated: 11/11/21 1501 Blood Culture No growth at 5 days. Blood culture [[id number]] Collected: 11/06/21 1218 Lab Status: Final result Specimen: Blood from Antecubital, Left Updated: 11/11/21 1501 Blood Culture No growth at 5 days. Blood culture [[id number]] Collected: 11/05/21 0935 Lab Status: Final result Specimen: Blood from Hand, Left Updated: 11/10/21 1501 Blood Culture No growth at 5 days. Blood culture [[id number]] Collected: 11/05/21 0928 Lab Status: Final result Specimen: Blood from Arm, Left Updated: 11/10/21 1501 Blood Culture No growth at 5 days. Blood culture [[id number]] Collected: 11/03/21 0408 Lab Status: Final result Specimen: Blood Updated: 11/08/21 0701 Blood Culture No growth at 5 days. Blood culture [[id number]] (Abnormal) Collected: 11/03/21 0356 Lab Status: Final result Specimen: Blood Updated: 11/08/21 0706 Blood Culture -- Corynebacterium species isolated : Interpretation of the importance of skin mitzy such as Coagulase Negative Staph, Viridans Strep, Corynebacteria and other Gram Positive organisms from a single Blood Culture set requires clinical correlation. Gram Stain Aerobic -- Note: This is a corrected report Growth detected in aerobic bottle. Gram Positive Rods seen Previously reported as: Gram Positive Cocci seen Results called to and read back by Denise Madera RN at 11/06/21 10:57:10 Blood culture [[id number]] (Abnormal) (Susceptibility) Collected: 11/02/21 1018 Lab Status: Final result Specimen: Blood Updated: 11/05/21 1124 Blood Culture -- Enterococcus faecium isolated * VRE, Vancomycin Resistance * Isolate saved. If future testing is required, contact the Microbiology Industrial Organizational Psychologist. Gram Stain Aerobic -- Growth detected in aerobic bottle. Gram Positive Cocci in pairs seen Gram Stain Anaerobic -- Growth detected in anaerobic bottle. Gram Positive Cocci in pairs seen Results called to and read back by Radha Marmolejo 11/03/21 02:42:51 VMartin Susceptibility Enterococcus faecium MICROSCAN METHOD Ampicillin Resistant Erythromycin Resistant Gentamicin 500 Sensitive Linezolid Sensitive Penicillin Resistant Vancomycin Resistant Linear View Blood culture [[id number]] (Abnormal) Collected: 11/02/21 1018 Lab Status: Final result Specimen: Blood Updated: 11/05/21 1125 Blood Culture -- Enterococcus faecium isolated * VRE, Vancomycin Resistance * Susceptibilities previously reported Gram Stain Anaerobic -- Growth detected in anaerobic bottle. Gram Positive Cocci in pairs seen Gram Stain Aerobic -- Growth detected in aerobic bottle. Gram Positive Cocci in pairs seen C. Difficile Screen [[id number]] Collected: 10/28/21 1207 Lab Status: Final result Specimen: Stool Updated: 10/28/21 1334 C Diff Screen Negative Comment: Ag/Tox Neg C. diff?? Negative Clostridium difficile is not present in the specimen. If patient is having diarrhea suspected to be from an infectious cause, then Soap & Water Contact Precautions are still required. Blood culture [[id number]] Collected: 10/20/211731 Lab Status: Final result Specimen: Blood Updated: 10/25/21 230 Blood Culture No growth at 5 days. Blood culture [[id number]] Collected: 10/20/21 173 Lab Status: Final result Specimen: Blood Updated: 10/25/21 230 Blood Culture No growth at 5 days. Blood culture [[id number]] Collected: 10/19/21 1139 Lab Status: Final result Specimen: Blood from Antecubital, Left Updated: 10/24/21 1501 Blood Culture No growth at 5 days. Blood culture [[id number]] (Abnormal) Collected: 10/19/21 1133 Lab Status: Final result Specimen: Blood from Hand, Right Updated: 10/25/21 0910 Blood Culture -- Coagulase negative Staphylococcus species detected by PCR Interpretation of the importance of skin mitzy such as Coagulase Negative Staph, Viridans Strep, Corynebacteria and other Gram Positive organisms from a single Blood Culture set requires clinical correlation. Gram Stain Aerobic -- Growth detected in aerobic bottle. Gram Positive Cocci in clusters seen C. Difficile Screen [[id number]] Collected: 10/19/21 1020 Lab Status: Final result Specimen: Stool Updated: 10/19/21 1607 C Diff Screen Negative Comment: Ag/Tox Neg C. diff?? Negative Clostridium difficile is not present in the specimen. If patient is having diarrhea suspected to be from an infectious cause, then Soap & Water Contact Precautions are still required. COVID-19 PCR [[id number]] Collected: 10/19/21 0405 Lab Status: Final result Specimen: Nasopharyngeal Swab Updated: 10/19/21 1834 SARS-CoV-2 RNA Not Detected Comment: This result should be interpreted in combination with the clinical observations, patient history and epidemiological information in making a final diagnosis. For testing of asymptomatic individuals, assay performance characteristics and clinical utility have not been evaluated. Testing for SARS-CoV-2 (Severe acute respiratory syndrome coronavirus 2, formerly known as 2019 novel coronavirus or 2019-nCoV) to aid in the diagnosis of COVID-19 is performed using the [employer] m SARS-CoV-2 Assay as authorized by the FDA Emergency Use Authorization (EUA). This EUA assay is intended for In-vitro Diagnostic (IVD) use with respiratory specimens such as nasopharyngeal swabs collected from individuals during the acute phase of infection. This assay is performed based on the instructions for use provided by [employer] and additional guidance provided by CDC and FDA. Testing is performed in the [facility] within the Department of Pathology and Laboratory Medicine at [facility], certified under the Clinical Laboratory Improvement Amendments of 1988 (CLIA), 42 U.S.C. 263a, to perform high complexity tests. Assay performance has been verified according to clinical laboratory regulatory requirements for use with specimens collected from individuals suspected of COVID-19. Test results are provided above. A result of Not Detected indicates that the viral RNA target is not present above the limit of detection, but does not preclude SARS-CoV-2 infection. False negative results may occur if a specimen is improperly collected, transported or handled; if amplification inhibitors are present; or if inadequate numbers of viral particles are present in the specimen. When a diagnostic test is negative, the possibility of a false negative result should be considered in the context of a patient's recent exposures and the presence of clinical signs and symptoms consistent with COVID-19. A result of Detected indicates that RNA from SARS-CoV-2 was detected and the patient is infected. As required or requested by public health authorities, positive specimens may be sent for additional testing. Positive and negative predictive values for this test are highly dependent on disease prevalence. A result of Invalid indicates that neither the viral RNA targets nor the internal control target was detected. An invalid result suggests the presence of inhibitors. Recollection and re-testing is recommended in the case of an invalid result. CDC COVID-19 criteria for testing on human specimens and clinical management guidance information are available at the CDC Coronavirus Disease 2019 (COVID-19) webpage under Information for Healthcare Professionals (https://www.cdc.gov/coronavirus/2019-ncov/hcp/index.html) Additional information about this and other EUA tests can be found in provider and patient fact sheets at the following FDA website: https://www.fda.gov/medical-devices/ayqqnvduihs-wvrnlkw-8314-mmvkg-00-dalwhdwau- mjc-whazmzwmsdzypq-zsphuhs-devices/oywxa-zjcnnxrtclb-ztnb SARS-Cov-2 RNA Source ULTRASOUND SPEC Swab COVID-19 PCR [[id number]] Collected: 10/15/212032 Lab Status: Final result Specimen: Nasopharyngeal Swab Updated: 10/16/21 0004 SARS-CoV-2 RNA PCR Not Detected Comment: This result should be interpreted in combination with the clinical observations, patient history and epidemiological information. For testing of asymptomatic individuals, assay performance characteristics and clinical utility have not been evaluated. Testing for SARS-CoV-2 (Severe acute respiratory syndrome coronavirus 2, formerly known as 2019 novel coronavirus or 2019-nCoV) to aid in the diagnosis of COVID-19 is performed using the [employer] COVID-19 Direct Assay by [employer] as authorized by the FDA issued Emergency Use Authorization (EUA). This assay is intended for In-vitro Diagnostic (IVD) use with nasopharyngeal swabs collected from individuals meeting the CDC criteria for testing. The assay is performed based on the instructions for use and additional guidance provided by the FDA. Testing is performed in the Microbiology Laboratory within the Department of Pathology and Laboratory Medicine at [facility], certified under the Clinical Laboratory Improvement Amendments of 1988 (CLIA), 42 U.S.C. section 263a, to perform high complexity tests. Assay performance has been verified according to clinical laboratory regulatory requirements. Test results are provided above. A result of Not Detected indicates that the viral RNA target is not present but does not preclude SARS-CoV-2 infection. False negative results may occur if a specimen is improperly collected, transported or handled; if amplification inhibitors are present; or if inadequate numbers of viral particles are present in the specimen. A result of Detected suggests a current or recent infection and the patient is presumed to be infected. Positive and negative predictive values for this test are highly dependent on disease prevalence. A result of Invalid indicates the inability to conclusively determine the presence or absence of SARS-CoV-2 RNA in the sample which can be due to a variety of factors. Recollection is recommended in the case of an invalid result. CDC COVID-19 criteria for testing on human specimens and clinical management guidance information are available at the CDC Coronavirus Disease 2019 (COVID-19) webpage under Information for Healthcare Professionals (https://www.cdc.gov/coronavirus/2019-ncov/hcp/index.html). Additional information about this and other EUA tests can be found in provider and patient fact sheets at the following FDA website: https://www.fda.gov/medical-devices/zfhihocjywx-caajcok-8076-blpds-49-vidbaorfh- ppc-ctgsekznghweyw-qkcfife-devices/fytvt-wgzfooswqld-kjiv SARS-CoV-2 Source ULTRASOUND SPEC Swab Pertinent radiology/diagnostic studies: MRI Brain 11/10: Punctate acute infarct in the posterolateral right frontal lobe subcortical white matter, without acute hemorrhage. CT A/P w contrast 11/03 ?? IMPRESSION ?? 1. Ill defined opacities in lingula may represent pneumonia. Consider follow-up chest x-ray if indicated. 2. No abdominal or pelvic abscess seen. 3. Hiatal hernia with fat stranding around a thick walled and dilated distal esophagus. Finding may represent esophagitis. 4. Resolution of splenomegaly. 5. No enlarged abdominal and pelvic lymph nodes. 6. No abdominal or pelvic ascites. CXR 11/04 ?? IMPRESSION Radiographically the left basilar airspace opacity seen on 11/02/2021 has resolved and findings are now similar compared to a radiograph from 10/19/2021. However, it is uncertain to which extent the mild opacities seen on CT 11/03/2021 still persist or have resolved (due to difference in technique). ?? Within the limitation of single frontal view the change in positioning of the left subclavian central venous catheter in comparison to 10/19/2021 is due to the fact that the tip has flipped into the azygos vein (unchanged to 11/02/2021). Please correlate clinically if functionalityof this catheter remains adequate. TTE 11/06 1. There are no vegetations seen on this study, if clinical suspicion for endocarditis remains, consider OLEKSANDR for further evaluation 2. Left ventricle is normal in size. LVEF is estimated at 64% by biplane. There are no wall motion abnormalities. 3. Right ventricle is milldly dilated with normal systolic function. 4. There is no pericardial effusion. TTE w bubble 11/11 Left ventricular systolic function is normal. The left ventricular ejection fraction is 67% by Tony's biplane. There are no segmental wall motion abnormalities. The left atrium is normal. There is no evidence for a patent foramen ovale. There is no evidence for a patent foramen ovale visualized with agitated saline. No significant valvular abnormalities. The aortic root at the level of the sinuses of Valsalva is mildly dilated. 3.8 cm. The ascending aorta is mildly dilated. 3.7 cm. Other details as noted below. ?? ASSESSMENT/PLAN: Luis Manuel Mobley Jr. is a 61 y.o. 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 now day + 21 (day 0 is 3) for MUD HSCT. Tolerated stem cell infusion well on 10/22, had some rigors and nausea post- infusion that resolved with medications. Counts remain low. Neutropenic fever on 11/02, cefepime escalated to zosyn, and then todaptomycin and cefepime after 1 day when BCx positive for VRE. TTE on 10/09 with no vegetation. Tunneled line removed 11/05. Plan for total of 2 weeks of daptomycin from 1st neg BCx until 11/17. Unfortunately, re-fevered on 11/10 during stroke event, prompting escalation of atbx to meropenum. Plan for 48 hours until 11/12 of coverage before de- escalation and pending culture data. Patient's high ostomy output (2-3L per day) initially improved with scheduled imodium. Lovenox stopped on 11/02 due to heme positive stool and severe mucositis, restarted on 11/07, and stopped on 11/08. For mucositis, on bmx, viscous lidocaine, morphine scheduled (dilaudid causes nausea). Started TPN on 10/31 (day +9). Transitioned PO medication to IV as able. On Tele since unable to take flecainide and mtop. Patient was found to have an acute ischemic stroke on 11/10 after noted to be having word finding difficulty, likely embolic from A. Fib w rvr when unable to take flecanide. Neurology consulted. Will hold off starting rousuvastatin because on daptomycin. For his bilateral feet neuropathy, will continue gabapentin to 200mg TID as tolerated Summary Plan: - stop zarxio - plan to de-escalate hernandez to cefepime if BCx with NGTD and remains afebrile on 11/13 - plan for dapto until 11/17 - if continues to have hematuria, will get BK virus PCR - continue hernandez and fluconzaole until ANC > 500 - continue IV tac 0.5mg bid - continue zarxio from day +7 to when ANC > 1500 - monitor I/O and daily weights - tacrolimus level Thursday and - f/u Thursday EBV every 2 weeks Plan: #Ischemic Stroke - Hemorrhagic stroke ruled out with CTA Head - R occipital lesion identified - MRI brain acute infarct in the posterolateral right frontal lobe - Permissive hypertension for now - Not a TPA candidate per neurology - neurology following - will start aspirin when counts improve - will start rousuvastatin when off daptomycin #VRE bacteremia #Neutropenic fever - likely from gut translocation from mucositis - abx: - cefepime 10/19 - 11/02, 11/03 - 11/10 - Meropenum 11/10 - p - zosyn 11/02 - daptomycin 11/02 - 11/17 - BCx 11/03: 1/2 Corynebacterium species (likely contaminant) - BCx 11/05 NGTD - OLEKSANDR 11/06 no vegetation - BCx 11/10: pending #STACIE, pre-renal, improving - pre-renal, noted on 10/27 - s/p 1L Bolus on 10/27 and 10/28, encourage imodium to thicken ostomy output - mIVF (10/29 -> 11/01) - continue to monitor, on TPN so no IVF #AML #MUD HSCT Day (-7): Fludarabine: Day (-6): Fludarabine, Busulfan, Rabbit ATG: Day (-5): Fludarabine, Busulfan, Rabbit ATG: Day (-4): Fludarabine, Busulfan, Rabbit ATG: Day (-3): Fludarabine, Busulfan: Day (0): Stem Cell Infusion: Day (+1): metHOTREXate: Day (+3): metHOTREXate: Day (+6): metHOTREXate: Day (+11): metHOTREXate: General - q4h vitals - strict Is/Os 2x daily - weigh patient 2x daily, notify provider if weight increases by 1kg or more in 12 hour period ?- lasix 20mg IV prn weight gain >1 kg above admission baseline ?- lasix 20mg IV for weight gain 1 kg over 12 hours or input exceeding output by greater than 1,000 ml/12h - neutropenic precautions - incentive spirometry q2h while awake - activity as tolerated - electrolyte replacement - not checking CMV b/c both recipient and donor are CMV negative - check EBV every 14 days until day +100 (01/24/22) Chemotherapy/Support - Busulfan 204mg??day (-6) to day (-3) -??Fludarabine??61??mg 102ml infusion once over 30 minutes day -7 Then every 24 hours at 0900 for 4 doses day (-6) to day (-3) - Rabbit ATG??124.8mg over 10 hours day (-6), 166.4mg on day (-5) 208??on day (-4).?? - Day 0 stem cell infusion. Premedicate with acetaminophen 650mg, diphenhydramine 50mg) - Methotrexate??10mg??day (+1), day (+3), day (+6), day (+11). Hold for serum creatinine >2, bilirubin >5, fluid accumulation (large effusion or ascites), severe mucositis if potential need for intubation. - filgrastim??600mcg qd starting day (+7) until ANC >1500 ?? Laboratory Monitoring - weekly CMV PCR starting day +10, then weekly thereafter - IgG every 2 weeks starting day +1 to day +100 - U/A s/ reflex culture on admission, then daily on days -2, -1, 0? Transfusion parameters - Hgb <??7 - PLT <10, or if febrile??or bleeding??<20 - keep active T&S once hgb <8 ?? Prophylaxis Seizure ppx ?-phenytoin 300 day (-6) through (-1) - GI ppx ?- pantoprazole 40mg qd - mucositis ppx ?- supersaturated calcium phosphate oral solution 30ml 4x daily starting on admission until resolution of mucositis and ANC ?>500 - infection ppx ?- fluconazole 400mg qd starting day (0) ?- levofloxacin 750mg qd starting day (0) until ANC >500, changed tocefepime due to fever on 10/19 ?- acyclovir 800mg bid starting day (-7) ?- bactrim DS 1 tablet daily from day (-7) through day (-2) ?- bactrim DS 1 tablet MWF starting day (30) - GVHD ppx?-??Tacrolimus??0.5mg IV bid?? - Started day (-2),?target 5-10 trough - VOD ppx ?- lovenox 40mg qd day (-7) through (30) per Dr. Modi's note, he should continue lovenox 100mg qd until plt apx <40 then switch to VOD ppx dose. ?- ursodiol 300mg qAM??&??qPM day (-7) through day (+30) Hydration - NaCl 0.9% continuous??150ml/hr x??day (-6) ??Through (-3) ?? Pain/Nausea/Appetite - avoid acetaminophen through??day??(-3) - avoid steroid antiemetics - palonosetron 0.25mg day (-6) - aprepitant 130mg day (-6) prior to??busulfan - lorazepam 0.5mg IV q4h prn nausea, anxiety - ondansetron??8mg q8h prn nausea, vomiting beginning day (-3) - prochlorperazine 10mg IV q6h prn nausea, vomiting - use ondansetron >??prochlorperazine or promethazine >??lorazepam >??metoclopramide - olanzapine 5mg qhs starting day (-3) for 5 doses?? - morphine scheduled ?? #Fever, neutropenic - 102.9 10/19 - 100.8 11/02 - CXR benign - C. Diff negative - UA unremarkable - BCx 10/20 negative - BCx 11/02 pending - Zosyn 11/02 - cefepime 10/19 - 11/02, 11/03 - p - vanc 10/20 - 10/22 - daptomycin 11/02 - p #Paroxysmal Afib - Continue home metoprolol, flecainide ?? #Hx of provoked PE in Apr 2021 - On lovenox 100mg qd (held prior to central line placement) - Continue until plt reach approximately 40 followed by switch to prophylactic dosing - may not need upon discharge b/c s/p 3 months of AC ?? #Hx of C diff colitis - Continue home PO vancomycin as tolerated - Ostomy care - C. Diff negative 10/28 #Bilateral Feet tingling - pt reports having baseline bilateral feet tingling that was noted to be worsened on on 10/21 (2 daysafter completing 5 days of fludarabine), strength intact, no loss of sensation - start gabapentin 100mg TID (10/21 - 10/23), 200mg TID (10/23 - p) #GERD - takes protonix at home - current regimen: protonix bid, carafate, tums, #Pancytopenia 2/2 to chemo and disease - continue to monitor, transfuse as needed for support #Routine DVT PPx: none due to thrombocytopenia Diet: Neutropenic (BMT) diet Dispo: [place] CODE STATUS: Attempt Cardiopulmonary Resuscitation - Inpatient Stacy Marin MD PGY1 Internal Medicine 11/12/2021 Heme/Onc/BMT Team A Pager #[phone] BMT / HEMATOLOGY STAFF ADDENDUM? I have independently interviewed and examined this patient and have personally reviewed the relevantclinical, laboratory and radiological data with the housestaff on rounds. Please refer to the comprehensive progress note above, with which I concur. I have reviewed and endorse the plan as outlined and have made any additions/corrections below. This patient meets criteria for inpatient level of care based on the above medical complexity.? 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 Pretransplant course marked by dev't of C difficile colitis with toxic megacolon, s/p [id number], with ostomy, then dev't of 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 ? Day +21 today. He was found to have word finding difficulties 48h ago. Noted per imaging to manifesta small Rt occipital ischemic stroke. Most likely explan'n is missed flecainide dose (x1-2) in setting of intermittent (paroxysmal) Afib. Hwvr, we also performed a cardiac work up (TTE with bubble study) to further assess pot'l etiologies - unrevealing. ? Because of fevers and the neuro acute events, atbx changed to Meropenem, for better gut anaerobe coverage. ??Plan is to downgrade back to Cefepime if BCx neg at 48-72h, per ID rec'n. ?? Updated Plan: # Severe mucositis - on morphine prn. Offered SWATCHER, but patient declined. Content with current regimen. ?? - most meds switched to IV.? - TPN; continue supportive measures. ? # ID:??Neutropenic fever: - Afebrile since 11/04? # VRE bacteremia - noted on Bl Cx from 11/02; Rpt Cx on 11/03 growing GPC and Corynebacterium.??ECHO??- no vegetations.? - On cefepime, daptomycin??per ID.? - On Acyclovir and fluconazole ppx??; On oral Vanc for C. Diff ppx? # GVHD ppx?? - On Tacrolimus ??0.7mg IV BID?? - Tac level 11/07 - 9.8; 7.8 today (no dose change). ? # VOD ppx - on Ursodiol ; ??- D/C??lovenox for increased oral bleeding from mucositis? # GI , Ostomy - ??C. Diff neg. ?? - On prn imodium for increased out put ? I reviewed??his??situation and our plans with the team, RN and pt on rounds today.? Central Venous Access Statement of Need?? Tunneled catheter - clean dry intact site? Can the central IV access be removed?[?Yes?[x ] No?[ ] N/A?? If no, reason for central access:? [X]?Stem cell transplant patient or AML induction? TACHO Goodrich MD Heme/Onc Section Mark Felder RN - 11/12/2021 6:04 AM EDT Patient Summary Reason for admission: Day +21 (11/12) of 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 11/10: Stroke alert called 2/2 word finding difficulty, disorientation, unable to follow commands. Found to have R sided occipital ischemic stroke. Not a TPA or aspirin candidate Significant 24 hour events: 11/11PM: A&Ox4, neuro checks unchanged. Can occasionally be slow to follow commands. NSR- ST on telemetry. Able to take PO meds, declined PRN pain meds/bmx for mucositis. SCDs in place. Calling appropriately Baseline Weight: 107.1 kg AM weight: 101.1 kg PM weight: Action List Q4 neuro checks- notifiy of any new changes TPN @120mL/hr IV Meropenem and Daptomycin for bacteremia CHG line only Ostomy care, monitor output Denise Madera RN - 11/11/2021 3:43 PM EDT Patient Summary Reason for admission: Day +20 (11/11) of 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 Significant 24 hour events: 11/11 AM: Tmax 37.5. Continues on Meropenem, Daptomycin, Fluconazole, & Acyclovir. Continues withliquid stool from ostomy, sched. Loperamide given. HR 90's-100's most of shift, ST/SR, cont's on telemetry, ECHO done at bedside, report pending. Able to use urinal today without incontinence. Neuro checks Q 4 hrs unchanged from previous assessments, still confused, difficulty with word finding w/delayed responses. Able to take all po meds despite mucositis/esophagitis. Patient denies pain but grimaces w/swallowing, declined morphine/BMX. Mouth/lip care done several times this shift. Hgb 6.7 & Plts 16 this am, PRBC's completed without issue; platelets transfused, post count 22. Continues TPN, magnesium replaced. SCDs ordered. Girlfriend and mother at bedside today. Action List Q4 neuro checks- notifiremington STEPHENSON of any new changes Follow up results of ECHO TPN @120mL/hr IV Meropenem and Daptomycin for bacteremia CHG line only Ostomy care, monitor output Continue to assess line access (has double lumen PICC, mediport accessed, PIV) discussed rewiring PICC to triple lumen, holding off for now as pt is starting to be able to transition to po meds Denise Madera RN - 11/11/2021 3:39 PM EDT Patient Summary Reason for admission: Day +20 (11/11) of 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 Significant 24 hour events: 11/11 AM: Tmax 37.5. Continues on Meropenem, Daptomycin, Fluconazole, & Acyclovir. Continues withliquid stool from ostomy, sched. Loperamide given. HR 90's-100's most of shift, ST/SR, cont's on telemetry, ECHO done at bedside, report pending. Able to use urinal today without incontinence. Neuro checks Q 4 hrs unchanged from previous assessments, still confused, difficulty with word finding w/delayed responses. Able to take all po meds despite mucositis/esophagitis. Patient denies pain but grimaces w/swallowing, declined morphine/BMX. Mouth/lip care done several times this shift. Hgb 6.7 & Plts 16 this am, PRBC's completed without issue; platelets transfused, post count 22. Continues TPN, magnesium replaced. SCDs ordered. Girlfriend and mother at bedside today. Action List Q4 neuro checks- notifiy MD of any new changes Follow up results of ECHO TPN @120mL/hr IV Meropenem and Daptomycin for bacteremia CHG line only Ostomy care, monitor output Continue to assess line access (has double lumen PICC, mediport accessed, PIV) discussed rewiring PICC to triple lumen, holding off for now as pt is starting to be able to transition to po meds Davion Jones MD - 11/11/2021 12:51 PM EDT INFECTIOUS DISEASE FOLLOW-UP NOTE Active ID Issue(s): Neutropenic fever VRE bacteremia Antimicrobial Therapy: Daptomycin (11/02-) Meropenem (11/10-) S/p Cefepime (10/19-11/10) Acyclovir IV Fluconazole IV PO vancomycin PO Bactrim DS QD Intercurrent Events/Subjective Data: Denies feeling hot, reports he feel better today. Girlfriend visiting. Physical Exam: Last value Range last 24 hrs Temperature Temp: 36.8 ??C (98.2 ??F) Temp: [36.8 ??C (98.2 ??F)-38.4 ??C (101.1 ??F)] Heart Rate Heart Rate: 95 Heart Rate: [92-110] Blood Pressure BP: 141/87 BP: (131-146)/(78-92) Respiratory Rate Resp: 22 Resp: [22-24] SpO2 SpO2: 94 % SpO2: [91 %-95 %] General: NAD Head: NCAT EENT: No conjunctival petechiae. Bloody sloughed off mucosal erosions Cardiovascular: RRR -m/r/g. R chest port c/d/i Pulmonary: Lungs CTAB easy WOB Abdomen: Soft, NT/ND, colostomy in place with brown stool Ext: No deformity. RUE PICC. Skin: No rash on visible skin Neuro: Alert, moves all 4 Psych: Euthymic, pleasant Laboratory: WBC 2.2 (ANC 1,640), Hgb 6.7, Plt 16 Cr 1.03 Micro: 11/10 BCx x2 - NGTD 11/09 C diff screen - negative 11/09 BCx x2 - NGTD 11/06 BCx x2 - NGTD 11/05 BCx x2 - NGTD 11/03 BCx x2 - Corynebacterium species in 1/4 vials 11/02 BCx x2 - VRE in 4/4 vials 10/28 C diff screen - negative 10/20 BCx x2 - NG 10/19 BCx x2 - CoNS in 1/4 vials 10/19 C diff screen - negative 10/19 SARS-CoV-2 PCR - not detected 10/15 SARS-CoV-2 PCR - not detected Radiology/Studies/Procedures: MRI brain w/ and w/o 11/10 IMPRESSION 1. Punctate acute infarct in the posterolateral right frontal lobe subcortical white matter, without acute hemorrhage. 2. The hypodensity previously seen in the right occipital lobe reflected artifact on the preceding CT scan as there is no abnormality in this location on the current study. ?? CT a/p w 11/03 IMPRESSION ?? 1. Ill defined opacities in lingula may represent pneumonia. Consider follow-up chest x-ray if indicated. 2. No abdominal or pelvic abscess seen. 3. Hiatal hernia with fat stranding around a thick walled and dilated distal esophagus. Finding may represent esophagitis. 4. Resolution of splenomegaly. 5. No enlarged abdominal and pelvic lymph nodes. 6. No abdominal or pelvic ascites. ?? Impression: Luis Manuel Mobley Jr. 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 He underwent RUE PICC placement 11/04 and removal of L sided tunneled PICC 11/05. He still has R chest port (not used). He also has acute R frontal lobe stroke (he has h/o a fib). He continues to fever although his ANC is improved now. We recommend ongoing treatment for VRE bacteremia (last + Cx 11/02) with IV daptomycin and IV meropenem (for neutropenic fever, although neutropenia improved). Recommendations: - continue daptomycin 845mg (10mg/kg based on ABW 84kg) IV q24 hr - continue meropenem 2g IV q8 hr - while on above, weekly CBC w diff, CMP, CPK - continue prophy acyclovir, fluconazole, Bactrim per Hematology team Patient discussed with ID attending Dr. Jones. Recommendations discussed with primary treating team. ID consult service will continue to follow. Please page ID Philippe team (pager [phone]) with questions or concerns. Jayme Tinajero MD 11/11/2021 12:51 PM I agree with the recommendations of Dr. Tinajero after discussion with her and review of her note, and also reviewed all pertinent labs, microbiology and radiology. I did not examine the patient myself today.. Davion Jones MD Gracy Iverson RN - 11/11/2021 12:23 PM EDT Images from the original note were not included. PICC Dressing Change [ ] 24 hour [ X ] Weekly [ ] PRN PICC dressing change completed as per [facility] protocol. Positive pressure displacement connector (Max Plus) was changed. Mid arm circumference: [34 ] cm at [ 2 ] cm above the insertion site. External catheter measurement: [ 0 ] cm. Internal catheter measurement (per insertion note): [ 39 ] cm. Dressing type: [ ] Transparent with CHG [ ] Transparent with biopatch [ X ] Other Sorbaivew and no Biopatch due to allergy to CHG. Cleaned with alcohol and Iodine. Site condition: [ X ] Site is without redness, drainage, edema and pain/tenderness. [ ] Other: Procedure was tolerated: [ X] Well [ ] Other Claudia Claros RD - 11/11/2021 11:48 AM EDT Images from the original note were not included. Nutrition Progress Note Luis Manuel Mobley Jr. is a 61 y.o. 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 Reason for intervention: Follow up and TPN Comments: TPN to provide 235g dextrose, 110g protein, and 60g lipid in 2,880mL. 1/2 NS. Increased phos by 4mmol. Increased mag by 4mEq. Increased K by 10mEq. Adjusted Na d/t NaCl no longeron shortage. Daily BMP with mag and phos please. Weekly LFTs and TG while on TPN. Monitor wt daily I was able to discuss plan with provider Hem/Onc pager #[phone]. Nutrition Support: TPN Medication Recent History (Show up to 3 orders; newest on the left. Changes between the two mostrecent orders are indicated.) Start date and time 11/11/2021179911/09/2021 1800 11/08/20211799 TPN Adult [[id number]] TPN Adult [[id number]] TPN Adult [[id number]] Order Status Active Last Dose in Progress Completed Last Admin New Bag at 11/10/2021 1840 by Julianne Graham RN New Bag at 11/08/2021 180 by Martha Pelayo RN Frequency Continuous (1800) Continuous (1800) Continuous (1800) Additives adult multivitamin 5 mL 5 mL 5 mL adult trace elements Zn-Cu-Mn-Se (Tralement) 0.5 mL 0.5 mL 0.5 mL folic acid 400 mcg 400 mcg 400 mcg Vit E3-D6-E3-B5-B6 (B Complex) 1 mL 1 mL 1 mL Electrolytes potassium phosphate 26 mmol 22 mmol 22 mmol potassium chloride 60 mEq 56 mEq 76 mEq sodium chloride 50 mEq 20 mEq 20 mEq sodium acetate 172 mEq 202 mEq 202 mEq calcium gluconate 8 mEq 8 mEq 8 mEq magnesium sulfate 40 mEq 36 mEq 36 mEq Dextrose dextrose 70% 235 g 235 g 235 g Amino Acids amino acid 15% no.5 (ClinisoL) 110 g 110 g 110 g QS Base sterile water 1,440.2 mL 1,437.02 mL 1,427.02 mL Lipid fat emulsion (Intralipid) 30 % 60 g 60 g 60 g Energy Contribution Proteins 440 kcal 440 kcal 440 kcal Dextrose 798.97 kcal 798.97 kcal 798.97 kcal Lipids 600 kcal 600 kcal 600 kcal Total 1,838.97 kcal 1,838.97 kcal 1,838.97 kcal Electrolyte Ion Calculated Amount Sodium 222 mEq 222 mEq 222 mEq Potassium 98.13 mEq 88.27 mEq 108.27 mEq Calcium 8 mEq 8 mEq 8 mEq Magnesium 40 mEq 36 mEq 36 mEq Aluminum -- -- -- Phosphate 29 mmol 25 mmol 25 mmol Chloride 110 mEq 76 mEq 96 mEq Acetate 265.13 mEq 295.13 mEq 295.13 mEq Chloride: Acetate Ratio 0.415 0.26 0.325 Trace Elements Copper 0.15 mg 0.15 mg 0.15 mg Manganese 27.5 mcg 27.5 mcg 27.5 mcg Selenium 30 mcg 30 mcg 30 mcg Zinc 1.5 mg 1.5 mg 1.5 mg Other Total Amino Acid 110 g 110 g 110 g Total Amino Acid/kg 1.09 g/kg 1.06 g/kg 1.05 g/kg Glucose Infusion Rate 1.62 mg/kg/min 1.62 mg/kg/min 1.57 mg/kg/min Osmolarity 1,059.52 1,049.89 1,063.78 Volume 2,880 mL 2,880 mL 2,880 mL Rate 120 mL/hr 120 mL/hr 120 mL/hr Dosing Weight 100.8 kg 104.1 kg 104.4 kg Infusion Site Central Central Central Total Multi-vitamins 5 mL 5 mL 5 mL Lab Results Component Value Date NA 141 11/11/2021 K 3.8 11/11/2021 CL 100 11/11/2021 CO2 26 11/11/2021 BUN 21 (H) 11/11/2021 CREATININE 1.03 11/11/2021 ESTGFR 78 11/11/2021 MAGNESIUM 0.70 11/11/2021 CALCIUM 8.6 11/11/2021 PHOS 2.5 11/11/2021 AST 32 11/11/2021 ALT 29 11/11/2021 ALKPHOS 124 11/11/2021 BILITOT 0.4 11/11/2021 BILIDIR 0.2 11/11/2021 TRIG 171 07/13/2021 HA1C 5.8 (H) 11/11/2021 [id number] 1,799 (H) 08/01/2021 SFOLATE 5.6 08/01/2021 IRON [...] Injury Device Sites: O2 sat monitor, IV sites, other (see comments) (external catheter & ostomy) Other Sites: ostomy, R DL PICC, R SL mediport Relevant medications: BMX prn, imodium, protonix, caphosol, prograf, zofran prn Last Bowel Movement: 11/09/21 Intake/Output Summary (Last 24 hours) at 11/11/2021 1148 Last data filed at 11/11/2021 1101 Gross per 24 hour Intake 5434 ml Output 3700 ml Net 1734 ml Admit Weight: 107.1 kg Estimated body mass index is 32.17 kg/m?? as calculated from the following: Height as of this encounter: 177 cm (5' 9.69). Weight as of this encounter: 100.8 kg (222 lb 3.6 oz). Anton Body Weight: 74.6 kg Usual Body Weight: 235 lbs per pt Wt Readings from Last 10 Encounters: 11/11/21 100.8 kg (222 lb 3.6 oz) 10/15/21 107.8 kg (237 lb 9.6 oz) 10/04/21 107.2 kg (236 lb 6.4 oz) 09/27/21 109 kg (240 lb 6.4 oz) 09/16/21 105.9 kg (233 lb 6.4 oz) 09/12/21 106.6 kg (235 lb) 09/09/21 102.8 kg (226 lb 9.6 oz) 09/05/21 106.8 kg (235 lb 6.4 oz) 08/26/21 102.8 kg (226 lb 9.6 oz) 08/19/21 100.2 kg (221 lb) Patient Vitals for the past 168 hrs: Weight 11/11/21 0320 100.8 kg (222 lb 3.6 oz) 11/10/21 1711 102.3 kg (225 lb 8.5 oz) 11/10/21 0348 103.1 kg (227 lb 4.7 oz) 11/09/21 1521 104.2 kg (229 lb 11.5 oz) 11/09/21 0132 104.1 kg (229 lb 8 oz) 11/08/21 1640 104.4 kg (230 lb 2.6 oz) 11/08/21 0100 104.4 kg (230 lb 2.6 oz) 11/07/21 1545 104.3 kg (229 lb 15 oz) 11/07/21 0334 104.1 kg (229 lb 8 oz) 11/06/21 1617 104.6 kg (230 lb 9.6 oz) 11/06/21 0356 104 kg (229 lb 4.5 oz) 11/05/21 1559 104.7 kg (230 lb 13.2 oz) 11/05/21 0320 103.3 kg (227 lb 11.8 oz) 11/04/21 1719 103.3 kg (227 lb 11.8 oz) Assessment: Estimated needs: Calories: 1865 (25 kcal/kg IBW) Protein: 89-112 grams (1.2-1.5 g/kg IBW) Nutrition Focused Physical Exam (NFPE): Performed on 10/28/21. Subcutaneous fat loss at Orbital region: None present Upper arm region (triceps/biceps): None present Thoracic and lumbar region (ribs, lower back and maxillary line): Not assessed Lean muscle loss to Orthodoxy region (temporalis muscle): None present Clavicle bone region (pectoralis major): None present Dorsal hand (interosseous muscle): None present Shoulder (deltoid): None present Scapular bone region (latissimus dorsi, trapezius muscles): Not assessed Thigh region (quadriceps muscle): None present Posterior calf region (gastrocnemius muscle): None present Fluid accumulation: Not assessed Nutrition intake and intake history/Interview: Patient with life safety event yesterday. 40mEq KCl repletion noted yesterday. 11/09: Message from pharmacy re: K of 4.6. Reduced K in TPN by 20mEq. 11/07: 40mEq of KCl repletion noted yesterday. 11/06: 60mEq of KCl repletion noted yesterday. 11/04: Luis Manuel reported a poor appetite today, not taking solids d/t mucositis and primarily taking in water as fluids, gatorade at bedside. Ileostomy output high, although per pt output is stable. Continue to monitor wt, below reported UBW. Protein-calorie Malnutrition: Not enough data to assess (RAFA Barnes J Parenteral Enteral Nutr. 2011; 36(3): 273-83) Nutrition to continue to follow up while inpatient. Thank you, Claudia Claros RD Pager #:[phone] Luis Manuel Goodrich Jr., MD - 11/11/2021 7:33 AM EDT Images from the original note were not included. Inpatient Hematology/Oncology/SCT Progress Note Patient info: Name: Luis Manuel Mobley Jr. : 1960 PCP: LEISA Munguia PCP phone number: [phone] Date of Admission: 10/15/2021 ( Hospital Day 27 days ) Service: Hem/Onc Team A pg [id number] (09/03) Responsible Attending:Luis Manuel Goodrich Jr., MD ID: Luis Manuel Mobley Jr. is a 61 y.o. Male with hx of paroxysmal Afib, c diff colitis c/b toxic megacolon s/p bowel resection and colostomy in may 2021, FLT3+ AML with positive [employer] disease??s/p CR w/ 7+3+Midostaurin c/b relapse tx w ventoclax + gilteritinib (held since 10/08) most with pre-transplant BM and LP showing FELY, admitted for MUD allo HSCT.Today is day +20 (day 0 is 10/22), getting daptomycin and meropenem for VRE bacteremia. Baseline weight: 107.1kg Donor: MUD ABO: Donor O negative, recipient O positive HLA: 05/26 ID status: Donor and recipient both CMV negative Conditioning regimen: fludarabine, busulfan GVHD regimen: Rabbit ATG, methotrexate, tacrolimus 24 Hour Events: - Yesterday, Code stroke called this AM for AMS (pt with word finding difficulty, difficulty following commands, no focal deficits noted, no weakness, numbness or tingling), STAT Head CTA showed no bleed, new right occipital lobe lesion, neurology consulted, abx broadened to meropenem for better gut anaerobic coverage - neurology: tele, MRI brain wwo contrast, echo with bubble, holding antiplatelet for secondary stroke prevention, lipid panel, A1c, restart rosuvastatin 40mg - ID: if continues to fever on meropenem after 24-48 hours, then rec switch back to cefepime - MRI Brain 11/10: Punctate acute infarct in the posterolateral right frontal lobe subcortical white matter, without acute hemorrhage. - Overnight, remained confused and continue to have word finding issues w delayed responses, guy totake all po meds, febrile to 38.4 (temp went down wo intervention) - This Am, got 1 pRBC for Hgb 6.7, platelet ordered for bleeding from urethra and mouth, alert this AM, answer questions appropriately - Vitals HR 100s, RR 24, - Weight 103.1kg -> 100.8kg - In/Out: +2198 (stool 1750) - ANC 0.18 -> 1.64 - A1c 5.8 (pre-diabetes) - BCx 11/10 pending Vitals: Last value Range last 24 hrs Temperature Temp: 36.8 ??C (98.2 ??F) Temp: [36.8 ??C (98.2 ??F)-38.5 ??C (101.3 ??F)] Heart Rate Heart Rate: 100 Heart Rate: [100-110] Blood Pressure BP: 143/88 BP: (131-146)/(83-95) Respiratory Rate Resp: 24 Resp: [20-24] SpO2 SpO2: 94 % SpO2: [90 %-97 %] Intake/Output Summary (Last 24 hours) at 11/11/2021 0733 Last data filed at 11/11/2021 0617 Gross per 24 hour Intake 5048 ml Output 2850 ml Net 2198 ml Patient Vitals for the past 168 hrs: Weight 11/11/21 0320 100.8 kg (222 lb 3.6 oz) 11/10/21 1711 102.3 kg (225 lb 8.5 oz) 11/10/21 0348 103.1 kg (227 lb 4.7 oz) 11/09/21 1521 104.2 kg (229 lb 11.5 oz) 11/09/21 0132 104.1 kg (229 lb 8 oz) 11/08/21 1640 104.4 kg (230 lb 2.6 oz) 11/08/21 0100 104.4 kg (230 lb 2.6 oz) 11/07/21 1545 104.3 kg (229 lb 15 oz) 11/07/21 0334 104.1 kg (229 lb 8 oz) 11/06/21 1617 104.6 kg (230 lb 9.6 oz) 11/06/21 0356 104 kg (229 lb 4.5 oz) 11/05/21 1559 104.7 kg (230 lb 13.2 oz) 11/05/21 0320 103.3 kg (227 lb 11.8 oz) 11/04/21 1719 103.3 kg (227 lb 11.8 oz) Exam: GENERAL:?appeared in no acute distress, answering question (place, person, president of [place]) appropriately MOUTH: blood noted at posterior oropharynx, diffuse inflammation and blood in oral mucosa CARDIOVASCULAR:??rrr no mrg PULMONARY:??CTAB on RA, no increased wob GASTROINTESTINAL:??Abdomen soft nontender to palpation w +BS. Colostomy with brown watery stool in place. SKIN:??bilateral petechial rash on BLEs, improving EXT: no Edema at ankles NEUROLOGICAL:??no focal deficit Medications: Scheduled Meds: ??? MEROpenem 1 g Intravenous Q8H ??? rosuvastatin 40 mg Oral QPM ??? loperamide 2 mg Oral BID ??? tacrolimus 0.5 mg Intravenous 2 times per day ??? morphine 4 mg Intravenous Q4H ??? DAPTOmycin 10 mg/kg/dose (Adjusted) Intravenous Q24H ??? metoprolol succinate XL 50 mg Oral Daily ??? ursodiol 300 mg Oral Daily with breakfast ??? ursodiol 600 mg Oral Daily with dinner ??? pantoprazole 40 mg Intravenous BID ??? acyclovir 250 mg/m2/dose (Anton) Intravenous Q12H ??? fluconazole 400 mg Intravenous Q24H ? ? hcvqiskpx-oapqxxqlh-gl-mag-sim 5 mL Oral 4 Times Daily AC & HS ??? gabapentin 200 mg Oral TID ??? sodium chloride 0.9 % (flush) 5 mL Intravenous BID ??? vancomycin 125 mg Oral BID ??? flecainide 50 mg Oral BID ??? supersaturated calcium phosphate 30 mL Oral 4 Times Daily ??? [START ON 11/21/2021] sulfamethoxazole-trimethoprim DS 1 tablet Oral Daily ??? filgrastim-sndz 600 mcg Subcutaneous Daily Continuous Infusions: ??? TPN Adult 120 mL/hr at 11/10/21 1840 PRN Meds:.lidocaine, sodium chloride 0.9 % (flush), magnesium sulfate, magnesium sulfate, potassium chloride, potassium chloride ER, potassium chloride ER, acetaminophen, camphor-menthoL, loperamide, alum-mag hydroxide-simeth, calcium carbonate, sucralfate, furosemide, furosemide, sodium chloride 0.9 % (flush), lidocaine, LORazepam, ondansetron, prochlorperazine, heparin, porcine, sodium chloride 0.9% (flush) Labs: Recent Labs 11/11/21 0350 11/10/21 1223 11/10/21 0335 11/09/21 1845 11/09/21 0256 WBC 2.2* -- 0.4* -- 0.1* HGB 6.7* -- 7.0* -- 6.2* HCT 19.4* -- 20.0* -- 17.8* PLATELET 16* 28* 17* < > 13* NEUTROABS -- -- 0.18* -- -- < > = values in this interval not displayed. Recent Labs 11/11/21 0350 11/10/21 0335 11/09/21 0256 NA 141 140 140 K 3.8 3.9 4.6 CL 100 100 102 CO2 BUN 21* 23* 26* CREATININE 1.03 0.96 0.99 Recent Labs 11/11/21 0350 11/10/21 0335 11/09/21 0256 CALCIUM 8.6 8.4* 8.4* MAGNESIUM 0.70 0.72 0.79 PHOS 2.5 2.7 3.0 Recent Labs 11/11/21 0350 11/07/21 0340 AST 32 15 ALT 29 27 ALKPHOS 124 123 BILITOT 0.4 0.5 BILIDIR 0.2 0.2 No results for input(s): INR, PT, PTT in the last 72 hours. Microbiology: BCx 11/05: NGTD BCx 11/03: 1/2 Corynebacterium species, likely contaminant BCx 11/02: VRE UA 11/03: unremarakble BCx 10/20: NGTD UA 10/20: does not look infectious Microbiology Results (Last 30 days) Procedure Component Value Units Date/Time C. Difficile Screen [[id number]] Collected: 11/09/21 1440 Lab Status: Final result Specimen: Stool Updated: 11/09/21 1548 C Diff Screen Negative Comment: Ag/Tox Neg C. diff?? Negative Clostridium difficile is not present in the specimen. If patient is having diarrhea suspected to be from an infectious cause, then Soap & Water Contact Precautions are still required. Blood culture [[id number]] Collected: 11/09/21 0428 Lab Status: Preliminary result Specimen: Blood Updated: 11/11/21 0702 Blood Culture No growth at 2 days. Blood culture [[id number]] Collected: 11/09/21 0410 Lab Status: Preliminary result Specimen: Blood Updated: 11/11/21 0702 Blood Culture No growth at 2 days. Blood culture [[id number]] Collected: 11/06/21 1224 Lab Status: Preliminary result Specimen: Blood from Hand, Left Updated: 11/10/21 1501 Blood Culture No growth at 4 days. Blood culture [[id number]] Collected: 11/06/21 1218 Lab Status: Preliminary result Specimen: Blood from Antecubital, Left Updated: 11/10/21 1501 Blood Culture No growth at 4 days. Blood culture [[id number]] Collected: 11/05/21 0935 Lab Status: Final result Specimen: Blood from Hand, Left Updated: 11/10/21 1501 Blood Culture No growth at 5 days. Blood culture [[id number]] Collected: 11/05/21 0928 Lab Status: Final result Specimen: Blood from Arm, Left Updated: 11/10/21 1501 Blood Culture No growth at 5 days. Blood culture [[id number]] Collected: 11/03/21 0408 Lab Status: Final result Specimen: Blood Updated: 11/08/21 0701 Blood Culture No growth at 5 days. Blood culture [[id number]] (Abnormal) Collected: 11/03/21 0356 Lab Status: Final result Specimen: Blood Updated: 11/08/21 0706 Blood Culture -- Corynebacterium species isolated : Interpretation of the importance of skin mitzy such as Coagulase Negative Staph, Viridans Strep, Corynebacteria and other Gram Positive organisms from a single Blood Culture set requires clinical correlation. Gram Stain Aerobic -- Note: This is a corrected report Growth detected in aerobic bottle. Gram Positive Rods seen Previously reported as: Gram Positive Cocci seen Results called to and read back by Denise Madera RN at 11/06/21 10:57:10 Blood culture [[id number]] (Abnormal) (Susceptibility) Collected: 11/02/21 1018 Lab Status: Final result Specimen: Blood Updated: 11/05/21 1124 Blood Culture -- Enterococcus faecium isolated * VRE, Vancomycin Resistance * Isolate saved. If future testing is required, contact the Microbiology Industrial Organizational Psychologist. Gram Stain Aerobic -- Growth detected in aerobic bottle. Gram Positive Cocci in pairs seen Gram Stain Anaerobic -- Growth detected in anaerobic bottle. Gram Positive Cocci in pairs seen Results called to and read back by Radha Marmolejo 11/03/21 02:42:51 VMartin Susceptibility Enterococcus faecium MICROSCAN METHOD Ampicillin Resistant Erythromycin Resistant Gentamicin 500 Sensitive Linezolid Sensitive Penicillin Resistant Vancomycin Resistant Linear View Blood culture [[id number]] (Abnormal) Collected: 11/02/21 1018 Lab Status: Final result Specimen: Blood Updated: 11/05/21 1125 Blood Culture -- Enterococcus faecium isolated * VRE, Vancomycin Resistance * Susceptibilities previously reported Gram Stain Anaerobic -- Growth detected in anaerobic bottle. Gram Positive Cocci in pairs seen Gram Stain Aerobic -- Growth detected in aerobic bottle. Gram Positive Cocci in pairs seen C. Difficile Screen [[id number]] Collected: 10/28/21 1207 Lab Status: Final result Specimen: Stool Updated: 10/28/21 1334 C Diff Screen Negative Comment: Ag/Tox Neg C. diff?? Negative Clostridium difficile is not present in the specimen. If patient is having diarrhea suspected to be from an infectious cause, then Soap & Water Contact Precautions are still required. Blood culture [[id number]] Collected: 10/20/21 173 Lab Status: Final result Specimen: Blood Updated: 10/25/21 2301 Blood Culture No growth at 5 days. Blood culture [[id number]] Collected: 10/20/21 1732 Lab Status: Final result Specimen: Blood Updated: 10/25/21 2301 Blood Culture No growth at 5 days. Blood culture [[id number]] Collected: 10/19/21 1139 Lab Status: Final result Specimen: Blood from Antecubital, Left Updated: 10/24/21 1501 Blood Culture No growth at 5 days. Blood culture [[id number]] (Abnormal) Collected: 10/19/21 1133 Lab Status: Final result Specimen: Blood from Hand, Right Updated: 10/25/21 0910 Blood Culture -- Coagulase negative Staphylococcus species detected by PCR Interpretation of the importance of skin mitzy such as Coagulase Negative Staph, Viridans Strep, Corynebacteria and other Gram Positive organisms from a single Blood Culture set requires clinical correlation. Gram Stain Aerobic -- Growth detected in aerobic bottle. Gram Positive Cocci in clusters seen C. Difficile Screen [[id number]] Collected: 10/19/21 1020 Lab Status: Final result Specimen: Stool Updated: 10/19/21 1607 C Diff Screen Negative Comment: Ag/Tox Neg C. diff?? Negative Clostridium difficile is not present in the specimen. If patient is having diarrhea suspected to be from an infectious cause, then Soap & Water Contact Precautions are still required. COVID-19 PCR [[id number]] Collected: 10/19/21 0405 Lab Status: Final result Specimen: Nasopharyngeal Swab Updated: 10/19/21 1834 SARS-CoV-2 RNA Not Detected Comment: This result should be interpreted in combination with the clinical observations, patient history and epidemiological information in making a final diagnosis. For testing of asymptomatic individuals, assay performance characteristics and clinical utility have not been evaluated. Testing for SARS-CoV-2 (Severe acute respiratory syndrome coronavirus 2, formerly known as 2019 novel coronavirus or 2019-nCoV) to aid in the diagnosis of COVID-19 is performed using the [employer] SARS-CoV-2 Assay as authorized by the FDA Emergency Use Authorization (EUA). This EUA assay is intended for In-vitro Diagnostic (IVD) use with respiratory specimens such as nasopharyngeal swabs collected from individuals during the acute phase of infection. This assay is performed based on the instructions for use provided by [employer] and additional guidance provided by CDC and FDA. Testing is performed in the [facility] within the Department of Pathology and Laboratory Medicine at [facility], certified under the Clinical Laboratory Improvement Amendments of 1988 (CLIA), 42 U.S.C. 263a, to perform high complexity tests. Assay performance has been verified according to clinical laboratory regulatory requirements for use with specimens collected from individuals suspected of COVID-19. Test results are provided above. A result of Not Detected indicates that the viral RNA target is not present above the limit of detection, but does not preclude SARS-CoV-2 infection. False negative results may occur if a specimen is improperly collected, transported or handled; if amplification inhibitors are present; or if inadequate numbers of viral particles are present in the specimen. When a diagnostic test is negative, the possibility of a false negative result should be considered in the context of a patient's recent exposures and the presence of clinical signs and symptoms consistent with COVID-19. A result of Detected indicates that RNA from SARS-CoV-2 was detected and the patient is infected. As required or requested by public health authorities, positive specimens may be sent for additional testing. Positive and negative predictive values for this test are highly dependent on disease prevalence. A result of Invalid indicates that neither the viral RNA targets nor the internal control target was detected. An invalid result suggests the presence of inhibitors. Recollection and re-testing is recommended in the case of an invalid result. CDC COVID-19 criteria for testing on human specimens and clinical management guidance information are available at the CDC Coronavirus Disease 2019 (COVID-19) webpage under Information for Healthcare Professionals (https://www.cdc.gov/coronavirus/2019-ncov/hcp/index.html) Additional information about this and other EUA tests can be found in provider and patient fact sheets at the following FDA website: https://www.fda.gov/medical-devices/pvlctzstkwx-oxvcfpr-7433-skmbo-57-eyuzskpxv- xgu-smlworxheninyz-dtsmkme-devices/pmpfc-qumxrttyygj-tzdf SARS-Cov-2 RNA Source ULTRASOUND SPEC Swab COVID-19 PCR [[id number]] Collected: 10/15/212032 Lab Status: Final result Specimen: Nasopharyngeal Swab Updated: 10/16/21 0004 SARS-CoV-2 RNA PCR Not Detected Comment: This result should be interpreted in combination with the clinical observations, patient history and epidemiological information. For testing of asymptomatic individuals, assay performance characteristics and clinical utility have not been evaluated. Testing for SARS-CoV-2 (Severe acute respiratory syndrome coronavirus 2, formerly known as 2019 novel coronavirus or 2019-nCoV) to aid in the diagnosis of COVID-19 is performed using the [employer] COVID-19 Direct Assay by [employer] as authorized by the FDA issued Emergency Use Authorization (EUA). This assay is intended for In-vitro Diagnostic (IVD) use with nasopharyngeal swabs collected from individuals meeting the CDC criteria for testing. The assay is performed based on the instructions for use and additional guidance provided by the FDA. Testing is performed in the Microbiology Laboratory within the Department of Pathology and Laboratory Medicine at [facility], certified under the Clinical Laboratory Improvement Amendments of 1988 (CLIA), 42 U.S.C. section 263a, to perform high complexity tests. Assay performance has been verified according to clinical laboratory regulatory requirements. Test results are provided above. A result of Not Detected indicates that the viral RNA target is not present but does not preclude SARS-CoV-2 infection. False negative results may occur if a specimen is improperly collected, transported or handled; if amplification inhibitors are present; or if inadequate numbers of viral particles are present in the specimen. A result of Detected suggests a current or recent infection and the patient is presumed to be infected. Positive and negative predictive values for this test are highly dependent on disease prevalence. A result of Invalid indicates the inability to conclusively determine the presence or absence of SARS-CoV-2 RNA in the sample which can be due to a variety of factors. Recollection is recommended in the case of an invalid result. CDC COVID-19 criteria for testing on human specimens and clinical management guidance information are available at the CDC Coronavirus Disease 2019 (COVID-19) webpage under Information for Healthcare Professionals (https://www.cdc.gov/coronavirus/2019-ncov/hcp/index.html). Additional information about this and other EUA tests can be found in provider and patient fact sheets at the following FDA website: https://www.fda.gov/medical-devices/gvighelpcfc-pkvuqiq-3216-wbpmh-57-bidtimldm- nva-goqmqulyoummef-knthrvm-devices/zncvd-fxrnkpcoiho-mekt SARS-CoV-2 Source ULTRASOUND SPEC Swab Pertinent radiology/diagnostic studies: MRI Brain 11/10: Punctate acute infarct in the posterolateral right frontal lobe subcortical white matter, without acute hemorrhage. CT A/P w contrast 11/03 ?? IMPRESSION ?? 1. Ill defined opacities in lingula may represent pneumonia. Consider follow-up chest x-ray if indicated. 2. No abdominal or pelvic abscess seen. 3. Hiatal hernia with fat stranding around a thick walled and dilated distal esophagus. Finding may represent esophagitis. 4. Resolution of splenomegaly. 5. No enlarged abdominal and pelvic lymph nodes. 6. No abdominal or pelvic ascites. CXR 11/04 ?? IMPRESSION Radiographically the left basilar airspace opacity seen on 11/02/2021 has resolved and findings are now similar compared to a radiograph from 10/19/2021. However, it is uncertain to which extent the mild opacities seen on CT 11/03/2021 still persist or have resolved (due to difference in technique). ?? Within the limitation of single frontal view the change in positioning of the left subclavian central venous catheter in comparison to 10/19/2021 is due to the fact that the tip has flipped into the azygos vein (unchanged to 11/02/2021). Please correlate clinically if functionalityof this catheter remains adequate. TTE 11/06 1. There are no vegetations seen on this study, if clinical suspicion for endocarditis remains, consider OLEKSANDR for further evaluation 2. Left ventricle is normal in size. LVEF is estimated at 64% by biplane. There are no wall motion abnormalities. 3. Right ventricle is milldly dilated with normal systolic function. 4. There is no pericardial effusion. ?? ASSESSMENT/PLAN: Luis Manuel Mobley Jr. is a 61 y.o. 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 now day + 20 (day 0 is 10/22) for MUD HSCT. Tolerated stem cell infusion well on 10/22, had some rigors and nausea post- infusion that resolved with medications. Counts remain low. Neutropenic fever on 11/02, cefepime escalated to zosyn, and then todaptomycin and cefepime after 1 day when BCx positive for VRE. TTE on 10/09 with no vegetation. Tunneled line removed 11/05. Plan for total of 2 weeks of daptomycin from 1st neg BCx until 11/17. Unfortunately, re-fevered on 11/10 during stroke event, prompting escalation of atbx to meropenum. Plan for 48 hours until 11/12 of coverage before de- escalation and pending culture data. Patient's high ostomy output (2-3L per day) initially improved with scheduled imodium. Lovenox stopped on 11/02 due to heme positive stool and severe mucositis, restarted on 11/07, and stopped on 11/08. For mucositis, on bmx, viscous lidocaine, morphine scheduled (dilaudid causes nausea). Started TPN on 10/31 (day +9). Transitioned PO medication to IV as able. On Tele since unable to take flecainide and mtop. Patient was found to have an acute ischemic stroke on 11/10 after noted to be having word finding difficulty, likely embolic from A. Fib w rvr when unable to take flecanide. Neurology consulted. Will hold off starting rousuvastatin because on daptomycin. For his bilateral feet neuropathy, will continue gabapentin to 200mg TID as tolerated Summary Plan: - plan for dapto until 11/17 - continue hernandez until 11/12, then de-escalate to cefepime if BCx with NG - if continues to have hematuria, will get BK virus PCR - f/u tac level - f/u TTE today - continue cefepim and fluconzaole until ANC > 500 - no auto electrolyte repletion prn b/c on TPN - continue IV tac 0.5mg bid - monitor ostomy output - continue zarxio from day +7 to when ANC > 1500 - monitor I/O and daily weights - tacrolimus level Thursday and - f/u Thursday EBV every 2 weeks Plan: #Ischemic Stroke - Hemorrhagic stroke ruled out with CTA Head - R occipital lesion identified - MRI brain acute infarct in the posterolateral right frontal lobe - Permissive hypertension for now - Not a TPA candidate per neurology - neurology following - will start aspirin when counts improve - will start rousuvastatin when off daptomycin #VRE bacteremia #Neutropenic fever - likely from gut translocation from mucositis - abx: - cefepime 10/19 - 11/02, 11/03 - 11/10 - Meropenum 11/10 - p - zosyn 11/02 - daptomycin 11/02 - 11/17 - BCx 11/03: 1/2 Corynebacterium species (likely contaminant) - BCx 11/05 NGTD - OLEKSANDR 11/06 no vegetation - BCx 11/10: pending #STACIE, pre-renal, improving - pre-renal, noted on 10/27 - s/p 1L Bolus on 10/27 and 10/28, encourage imodium to thicken ostomy output - mIVF (10/29 -> 11/01) - continue to monitor, on TPN so no IVF #AML #MUD HSCT Day (-7): Fludarabine: Day (-6): Fludarabine, Busulfan, Rabbit ATG: Day (-5): Fludarabine, Busulfan, Rabbit ATG: Day (-4): Fludarabine, Busulfan, Rabbit ATG: Day (-3): Fludarabine, Busulfan: Day (0): Stem Cell Infusion: Day (+1): metHOTREXate: Day (+3): metHOTREXate: Day (+6): metHOTREXate: Day (+11): metHOTREXate: General - q4h vitals - strict Is/Os 2x daily - weigh patient 2x daily, notify provider if weight increases by 1kg or more in 12 hour period ?- lasix 20mg IV prn weight gain >1 kg above admission baseline ?- lasix 20mg IV for weight gain 1 kg over 12 hours or input exceeding output by greater than 1,000 ml/12h - neutropenic precautions - incentive spirometry q2h while awake - activity as tolerated - electrolyte replacement - not checking CMV b/c both recipient and donor are CMV negative - check EBV every 14 days until day +100 (01/24/22) Chemotherapy/Support - Busulfan 204mg??day (-6) to day (-3) -??Fludarabine??61??mg 102ml infusion once over 30 minutes day -7 Then every 24 hours at 0900 for 4 doses day (-6) to day (-3) - Rabbit ATG??124.8mg over 10 hours day (-6), 166.4mg on day (-5) 208??on day (-4).?? - Day 0 stem cell infusion. Premedicate with acetaminophen 650mg, diphenhydramine 50mg) - Methotrexate??10mg??day (+1), day (+3), day (+6), day (+11). Hold for serum creatinine >2, bilirubin >5, fluid accumulation (large effusion or ascites), severe mucositis if potential need for intubation. - filgrastim??600mcg qd starting day (+7) until ANC >1500 ?? Laboratory Monitoring - weekly CMV PCR starting day +10, then weekly thereafter - IgG every 2 weeks starting day +1 to day +100 - U/A s/ reflex culture on admission, then daily on days -2, -1, 0? Transfusion parameters - Hgb <??7 - PLT <10, or if febrile??or bleeding??<20 - keep active T&S once hgb <8 ?? Prophylaxis Seizure ppx ?-phenytoin 300 day (-6) through (-1) - GI ppx ?- pantoprazole 40mg qd - mucositis ppx ?- supersaturated calcium phosphate oral solution 30ml 4x daily starting on admission until resolution of mucositis and ANC ?>500 - infection ppx ?- fluconazole 400mg qd starting day (0) ?- levofloxacin 750mg qd starting day (0) until ANC >500, changed tocefepime due to fever on 10/19 ?- acyclovir 800mg bid starting day (-7) ?- bactrim DS 1 tablet daily from day (-7) through day (-2) ?- bactrim DS 1 tablet MWF starting day (30) - GVHD ppx?-??Tacrolimus??0.5mg IV bid?? - Started day (-2),?target 5-10 trough - VOD ppx ?- lovenox 40mg qd day (7) through () per Dr. Modi's note, he should continue lovenox 100mg qd until plt apx <40 then switch to VOD ppx dose. ?- ursodiol 300mg qAM??&??qPM day (7) through day (30) Hydration - NaCl 0.9% continuous??150ml/hr x??day (-6) ??Through (-3) ?? Pain/Nausea/Appetite - avoid acetaminophen through??day??(-3) - avoid steroid antiemetics - palonosetron 0.25mg day (-6) - aprepitant 130mg day (-6) prior to??busulfan - lorazepam 0.5mg IV q4h prn nausea, anxiety - ondansetron??8mg q8h prn nausea, vomiting beginning day (-3) - prochlorperazine 10mg IV q6h prn nausea, vomiting - use ondansetron >??prochlorperazine or promethazine >??lorazepam >??metoclopramide - olanzapine 5mg qhs starting day (-3) for 5 doses?? - morphine scheduled ?? #Fever, neutropenic - 102.9 10/19 - 100.8 11/02 - CXR benign - C. Diff negative - UA unremarkable - BCx 10/20 negative - BCx 11/02 pending - Zosyn 11/02 - cefepime 10/19 - 11/02, 11/03 - p - vanc 10/20 - 10/22 - daptomycin 11/02 - p #Paroxysmal Afib - Continue home metoprolol, flecainide ?? #Hx of provoked PE in Apr 2021 - On lovenox 100mg qd (held prior to central line placement) - Continue until plt reach approximately 40 followed by switch to prophylactic dosing - may not need upon discharge b/c s/p 3 months of AC ?? #Hx of C diff colitis - Continue home PO vancomycin as tolerated - Ostomy care - C. Diff negative 10/28 #Bilateral Feet tingling - pt reports having baseline bilateral feet tingling that was noted to be worsened on on 10/21 (2 daysafter completing 5 days of fludarabine), strength intact, no loss of sensation - start gabapentin 100mg TID (10/21 - 10/23), 200mg TID (10/23 - p) #GERD - takes protonix at home - current regimen: protonix bid, carafate, tums, #Pancytopenia 2/ to chemo and disease - continue to monitor, transfuse as needed for support #Routine DVT PPx: none due to thrombocytopenia Diet: Neutropenic (BMT) diet Dispo: [place] CODE STATUS: Attempt Cardiopulmonary Resuscitation - Inpatient Stacy Marin MD PGY1 Internal Medicine 11/11/2021 Heme/Onc/BMT Team A Pager #[phone] BMT / HEMATOLOGY STAFF ADDENDUM ?? I have independently interviewed and examined this patient and have personally reviewed the relevantclinical, laboratory and radiological data with the housestaff on rounds. Please refer to the comprehensive progress note above, with which I concur. I have reviewed and endorse the plan as outlined and have made any additions/corrections below. This patient meets criteria for inpatient level of care based on the above medical complexity. ?? 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 Pretransplant course marked by dev't of C difficile colitis with toxic megacolon, s/p [id number], with ostomy, then dev't of 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 ? Day +20 today. He was found to have word finding difficulties in the past 24h. Noted per imaging to manifest a small Rt occipital ischemic stroke. Most likely explan'n is missed flecainide dose (x1-2) in setting of intermittent (paroxysmal) Afib. Hwvr, will also perform cardiac work up (TTE with bubble study) today to further assess pot'l etiologies. ?? Because of fevers, and the neuro acute events, will switch to Meropenem, for better gut anaerobe coverage. Plan is to downgrade back to Cefepime if BCx neg at 48-72h, per ID rec'n. ?? # Severe mucositis - on morphine prn. Offered SWATCHER, but patient declined. Happy with current regimen. - most meds switched to IV.?? - TPN; continue supportive measures. ?? # ID: Neutropenic fever: - Afebrile since 11/04 ?? # VRE bacteremia - noted on Bl Cx from 11/02; Rpt Cx on 11/03 growing GPC and Corynebacterium.??ECHO??- no vegetations.?? - On cefepime, daptomycin??per ID.?? - On Acyclovir and fluconazole ppx??; On oral Vanc for C. Diff ppx? # Pancytopenia - 2ry to chemo. - on Zarxio?and prn transfusions.? # GVHD ppx?? - On Tacrolimus ??0.7mg IV BID?? - Tac level 11/07 - 9.8; 7.8 today (no dose change). ?? # VOD ppx - on Ursodiol ; ??- D/C??lovenox for increased oral bleeding from mucositis? # GI , Ostomy - ??C. Diff neg. ?? - On prn imodium for increased out put ? I reviewed??his??situation and our plans with the team, RN and pt on rounds today. ?? Central Venous Access Statement of Need Tunneled catheter - clean dry intact site Can the central IV access be removed?[?Yes?[x ] No?[ ] N/A If no, reason for central access:? [X]?Stem cell transplant patient or AML induction TACHO Goodrich MD Heme/Onc Section Yvette Pichardo RN - 11/11/2021 5:03 AM EDT Illness Severity [] Stable [x] Watcher [] Unstable Patient Summary Reason for admission: Day +20 (11/11) of 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 Significant 24 hour events: 11/10 AM: When MD assessed patient this am, he was having word finding difficulty and R facial droop.Called stroke alert and went for head CT with [employer] RN. Patient only oriented to self. Able tomove all extremities but having difficulty following commands. Neuro consulted. Upon return, given aunit of platelets. Spiked to 38.5 during platelet transfusion. Notified MD- switched from Cefepime to Meropenem and blood cultures drawn 1 hour post-transfusion. Post-platelet count 28. Brain MRI also ordered. Unable to start his scheduled medications for day until return from head CT and then had to pause all medications for MRI for approximately 2 hours. No blood return from red lumen of PICC, VAS instilled Cathflo and placed L PIV so Tacrolimus could be started. No Morphine given today per verbalorder from MD as we don't want to alter mental status. Pre-medicated with Ativan before MRI. ems instructor accompanied pt to MRI. Patient had some bleeding around urethral meatus this afternoon witha few blood clots and urine is now pink in color. MD notified, needs UA sent-will need to straight cath tonight to get good sample. Is now on Q4 neuro checks. This evening, disoriented to place, time, situation. Is able to follow commands but has poor attention and continues to have delayed responses.2 beats nystagmus noted right and left. Has bilateral hand tremors. 5/5 strength throughout. 11/10PM: Tmax 38.4, currently 37.2 without intervention. Continues on Meropenem, Daptomycin, Fluconazole, & Acyclovir. Multiple liquid stool from ostomy, sched. Loperamide given with some effect. HR100's most of shift, ST/SR, cont's on telemetry. Incontinent of urine multiple times overnight, UA C&S sent. Neuro checks unchanged from previous assessments. Patient still confused and having wordfinding issues w/delayed responses. Patient also having short term memory issues. Able to take all po meds despite mucositis/esophagitis. Patient denies pain but grimaces occasionally w/swallowing. Mouth/lip care done several times this shift. Hgb 6.7 & Plts 16 this am, MD notified. RBC's ordered & currently infusing without incident, oncoming RN aware. 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 technician PT [x] OT [] HAY BUCKLER [] Pall care (massage therapy) [x] Nutrition [x] Last Flu vaccine: Last Covid Test Result: 10/19/2021 Not Detected 11/02 Positive blood cultures VRE 11/03 positive blood cultures (+ gram rods) Situational Awareness & Contingency Planning Notify provider if weight increases by 1kg or more in 12 hour period - prn lasix dosing per MAR Julianne Graham, RN - 11/10/2021 9:59 PM EDT Illness Severity [] Stable [x] Watcher [] Unstable Patient Summary Reason for admission: Day +19 (11/10) of 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 Significant 24 hour events: 11/10 AM: When MD assessed patient this am, he was having word finding difficulty and R facial droop.Called stroke alert and went for head CT with Life [employer] RN. Patient only oriented to self. Able tomove all extremities but having difficulty following commands. Neuro consulted. Upon return, given aunit of platelets. Spiked to 38.5 during platelet transfusion. Notified MD- switched from Cefepime to Meropenem and blood cultures drawn 1 hour post-transfusion. Post-platelet count 28. Brain MRI also ordered. Unable to start his scheduled medications for day until return from head CT and then had to pause all medications for MRI for approximately 2 hours. No blood return from red lumen of PICC, VAS instilled Cathflo and placed L PIV so Tacrolimus could be started. No Morphine given today per verbalorder from MD as we don't want to alter mental status. Pre-medicated with Ativan before MRI. ems instructor accompanied pt to MRI. Patient had some bleeding around urethral meatus this afternoon witha few blood clots and urine is now pink in color. MD notified, needs UA sent-will need to straight cath tonight to get good sample. Is now on Q4 neuro checks. This evening, disoriented to place, time, situation. Is able to follow commands but has poor attention and continues to have delayed responses.2 beats nystagmus noted right and left. Has bilateral hand tremors. 5/5 strength throughout. Baseline Weight: 107.1 kg AM weight: 103.1kg (11/10) PM weight: 102.3 kg Neuro: .WDL except disoriented to place, time, situation, slow to respond, word finding difficulty this am Q4 neuro checks CV: .WDL except tachycardic Telemetry: Yes Neurovasc: .WDL except N/T bilateral feet @ baseline VTE Prophylaxis: none Pulmonary: .WDL except PICHARDO, dim O2 Device: None (Room air) GI: .WDL except ileostomy; poor PO intake, mucositis. c.diff neg on 11/09 Illeostomy: last changed 11/10 : .WDL except heme +, urine pink Musculoskeletal: .WDL except generalized weakness Pain/Location: 0 (11/10/211950) / mouth (nondental) (11/09/212148) Mobility Plan: 1 assist Bed alarm sensitivity: medium Skin: .WDL except R cheek,upper palate and tongue lesions, throat red, BLEs petechiae Psych/Social: Girlfriend Chai Action List Q4 neuro checks- notifiy MD of any new changes Straight cath tonight to collect UA and culture Needs echo tomorrow TPN @120mL/hr IV Meropenem and daptomycin for bacteremia CHG line only Ostomy care, monitor output Discharge Plan: pending 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 This morning, he was noted to haveword finding difficulties, and a stroke code was called. He underwent a CT of his head, as well as aCTA of his head and neck, which showed evidence of an acute infarct in the posterior aspect of his Roccipital lobe without surrounding hemorrhage. He had another fever this morning after returning from his CT scan, and was empirically broadened to meropenem from cefepime. Antimicrobials: Daptomycin (11/02-) Meropenem (11/10-) S/p Cefepime (10/19-11/10) Prophylaxis: Acyclovir Fluconazole PO Vancomycin Medications: ??? MEROpenem (Merrem) 1 g vial attach to sodium chloride 0.9% 100 mL Mini-Bag Plus ??? alteplase (Cathflo) injection 2 mg ??? TPN Adult ??? loperamide (Imodium A-D) capsule 2 mg ??? tacrolimus (Prograf) 0.5 mg in dextrose 5% Non-PVC 50.5 mL infusion ??? morphine (4 mg/mL) injection 4 mg ??? lidocaine (Xylocaine) 2 % viscous solution 15 mL ??? sodium chloride 0.9 % (flush) (BD PosiFlush Normal Saline 0.9) flush 10 mL ??? DAPTOmycin (Cubicin) 845 mg in sodium chloride 0.9% 66.9 mL ??? metoprolol succinate XL (Toprol-XL) tablet 50 mg ??? magnesium sulfate 2 g in sterile water 50 mL infusion ??? magnesium sulfate 1 g in dextrose 5% 100 mL infusion ??? potassium chloride 20 mEq in sterile water 100 mL infusion ??? potassium chloride ER (K-Dur/Klor-Con) tablet 40 mEq ??? potassium chloride ER (K-Dur/Klor-Con) tablet 20 mEq ??? ursodiol (Actigall) (60 mg/mL) oral liquid 300 mg ??? ursodiol (Actigall) (60 mg/mL) oral liquid 600 mg ??? pantoprazole (Protonix) injection 40 mg ??? acetaminophen (Tylenol) (32.02 mg/mL) oral liquid 975 mg ??? acyclovir (Zovirax) 472.5 mg in sodium chloride 0.9% 259.45 mL infusion ??? fluconazole (Diflucan) 400 mg in sodium chloride 0.9% 200 mL infusion ??? camphor-menthoL (Sarna) lotion ??? diphenhydrAMINE/aluminum-magnesium hydroxide with simethicone/lidocaine (BMX) (6.67 mg-0.83 mg-13.33 mg-1.33 mg/mL) oral liquid 5 mL ??? loperamide (Imodium A-D) capsule 2 mg ??? alum-mag hydroxide-simeth (Maalox) (40 mg-40 mg-4 mg/mL) oral liquid 10 mL ??? calcium carbonate (Tums) chewable tablet 500 mg ??? sucralfate (Carafate) (100 mg/mL) oral liquid 1 g ??? gabapentin (Neurontin) capsule 200 mg ??? furosemide (Lasix) (10 mg/mL) injection 60 mg ??? furosemide (Lasix) (10 mg/mL) injection 60 mg ??? sodium chloride 0.9 % (flush) (BD PosiFlush Normal Saline 0.9) flush 5 mL ??? sodium chloride 0.9 % (flush) (BD PosiFlush Normal Saline 0.9) flush 5-20 mL ??? lidocaine (Xylocaine) 1% (10 mg/mL) injection 3 mg ??? vancomycin (Vancocin) capsule 125 mg ??? flecainide (Tambocor) tablet 50 mg ??? LORazepam (Ativan) (2 mg/mL) injection 0.5 mg ??? ondansetron (pf) (Zofran) (2 mg/mL) injection 8 mg ??? prochlorperazine (Compazine) (5 mg/mL) injection 10 mg ??? supersaturated calcium phosphate (Caphosol) oral solution 30 mL ??? [START ON 11/21/2021] sulfamethoxazole-trimethoprim DS (Bactrim DS) 800-160 mg per tablet 1 tablet ??? filgrastim-sndz (Zarxio) (300 mcg/0.5 mL) injection 600 mcg ??? heparin (pf) (porcine) (100 units/mL) flush 5 mL syringe 500 Units ??? sodium chloride 0.9 % (flush) (BD PosiFlush Normal Saline 0.9) flush 5-20 mL Vitals: Last value Range last 24 hrs Temperature Temp: 37.7 ??C (99.9 ??F) Temp: [37 ??C (98.6 ??F)-38.6 ??C (101.5 ??F)] Heart Rate Heart Rate: (!) 109 Heart Rate: [106-152] Blood Pressure BP: (!) 144/91 BP: (114-157)/(61-100) Respiratory Rate Resp: 22 Resp: [20-28] SpO2 SpO2: 95 % SpO2: [89 %-97 %] Physical Exam: General: In no acute distress, resting in bed comfortably, increased response latency with word finding difficulty HEENT: No scleral icterus, crusted old blood on lips, erosions present on upper palate consistent with severe mucositis Neck: Supple, trachea midline Pulmonary: Clear to ascultation listening anteriorly, no crackles or wheezes CV: Regular rate and rhythm, no murmurs Chest: R chest wall port in place, now accessed. Dressing in place over prior L chest wall SBCC site. Abdomen: Soft, mildly distended, non-tender to palpation in all quadrants. Midline incision appears well healed, RLQ ostomy with green stool output. Extremities: Trace peripheral edema. RUE PICC in place without surrounding erythema. Skin: No rashes or lesions noted on visible skin Neuro: Alert w/ word finding difficulties, moving all extremities spontaneously Psych: Normal mood and affect, linear thought process Laboratory: Recent Labs 11/10/21 0335 11/09/21 1845 11/09/21 0256 11/08/21 1440 11/08/21 0125 WBC 0.4* -- 0.1* -- 0.0* HGB 7.0* -- 6.2* -- 7.4* HCT 20.0* -- 17.8* -- 21.0* PLATELET 17* 16* 13* < > 7* < > = values in this interval not displayed. Recent Labs 11/10/21 0335 11/09/21 0256 11/08/21 0125 NA 140 140 141 K 3.9 4.6 3.9 CL 100 102 107 CO2 28 28 23 BUN 23* 26* 29* CREATININE 0.96 0.99 0.95 Recent Labs 11/07/21 0340 AST 15 ALT 27 ALKPHOS 123 BILITOT 0.5 BILIDIR 0.2 Microbiology: 11/09 C diff screen - negative 11/09 BCx x2 - NGTD 11/06 BCx x2 - NGTD 11/05 BCx x2 - NGTD 11/03 BCx x2 - Corynebacterium species in 1/4 vials 11/02 BCx x2 - VRE in 4/4 vials 10/28 C diff screen - negative 10/20 BCx x2 - NG 10/19 BCx x2 - CoNS in 1/4 vials 10/19 C diff screen - negative 10/19 SARS-CoV-2 PCR - not detected 10/15 SARS-CoV-2 PCR - not detected Radiology/Studies/Procedures: CT head w/o IV contrast (11/10/2021) Acute infarct in the posterior aspect of the right occipital lobe with no acute hemorrhage. Please also see follow-up MRI brain findings, study currently pending. CTA head & neck w/ IV contrast (11/10/2021) No significant arterial abnormality. Specifically, no proximal branch occlusion. TTE (11/06/2021) 1. There are no vegetations seen on this study, if clinical suspicion for endocarditis remains, consider OLEKSANDR for further evaluation. 2. Left ventricle is normal in size. LVEF is estimated at 64% by biplane. There are no wall motion abnormalities. 3. Right ventricle is milldly dilated with normal systolic function. 4. There is no pericardial effusion. CXR (11/04/2021) Left basilar airspace opacity seen on 11/02/[address] abdomen & pelvis w/ IV contrast (11/03/2021) 1. Ill defined opacities in lingula may represent pneumonia. Consider follow-up chest x-ray if indicated. 2. No abdominal or pelvic abscess seen. 3. Hiatal hernia with fat stranding around a thick walled and dilated distal esophagus. Finding may represent esophagitis. 4. Resolution of splenomegaly. 5. No enlarged abdominal and pelvic lymph nodes. 6. No abdominal or pelvic ascites. Impression: Luis Manuel Mobley Jr. is a 61 y.o. male with Hx of relapsed FLT3+ AML, along with prior Hx of fulminant Cdifficile colitis requiring colectomy in 05/2021, who is admitted for allogeneic HSCT, w/ day 0 = 10/22. On 10/19, he spiked high grade fevers in the setting of downtrending WBC count, and he was started on cefepime w/ improvement of his fever curve. Blood Cxs on that day revealed growth of CoNS, which was felt to be a contaminant. On 11/02, he spiked recurrent neutropenic fevers, and was noted to have VRE bacteremia. The most likely source was felt to be gut translocation in s/o severe mucositis, thoughhis L chest wall SBCC was thought of as another potential source. He underwent PICC placement on 11/04, w/ removal of L chest wall SBCC. He developed recurrence of neutropenic fevers on 11/09, without other localizing signs or symptoms of infection. Unfortunately, in light of word-finding difficulties this morning, he underwent a CT head showing evidence of an acute infarct in the posterior aspect of the R occipital lobe. It is not uncommon for patients with ANC of <500 to continue to fever over the duration of their neutropenia. Per the IDSA guidelines on antimicrobial agents in neutropenic patients, persistent fever alone in a patient whose condition is otherwise stable is rarely an indication to alter the antibiotic regimen. Specific antimicrobial additions or changes to the initial regimen should be guided by clinical change or culture results, rather than the fever pattern alone. Unfortunately, the patient's blood cultures from 11/09 were drawn prior to onset of fevers, and blood cultures were ordered for today but not drawn prior to broadening to meropenem. Recommendations: - Continue IV meropenem 2g q8h for treatment of recurrent neutropenic fever - If the patient does not defervesce with broadening to meropenem after ~24-48 hours, then would switch back to cefepime - In the future, please time collection of blood culture with onset of fevers, and try to hold off on adjusting antimicrobials until blood cultures are collected as long as the patient remains clinically stable - Awaiting result of MRI brain, though likelihood of [employer] infection as the etiology if his recurrent fevers is low - Continue IV daptomycin 10 mg/kg daily for VRE bacteremia - Continue PO vancomycin 125 mg q12h for secondary CDI prophylaxis - Continue fluconazole, acyclovir, and TMP-SMX for ID prophylaxis - please convert to oral formulations when possible Monitor for toxicity of daptomycin, meropenem, acyclovir, fluconazole, PO vancomycin by checking CBCw/ diff, CMP. Recommendations discussed with primary team. X The Infectious Disease consult service will continue to follow the patient. Do not hesitate to page ID Green team with any further questions or concerns. ID will sign off. Please contact us if further consultation required. Aracely Greco MD Staff Physician in Infectious Diseases Tonio Diaz Jr., MD - 11/10/2021 7:52 AM EDT Images from the original note were not included. Inpatient Hematology/Oncology/SCT Progress Note Patient info: Name: Luis Manuel Mobley Jr. : 1960 PCP: LEISA Munguia PCP phone number: [phone] Date of Admission: 10/15/2021 ( Hospital Day 26 days ) Service: Hem/Onc Team A pg [id number] (09/03) Responsible Attending:Renay Ponce MD ID: Luis Manuel Mobley Jr. is a 61 y.o. Male with hx of paroxysmal Afib, c diff colitis c/b toxic megacolon s/p bowel resection and colostomy in may 2021, FLT3+ AML with positive [employer] disease??s/p CR w/ 7+3+Midostaurin c/b relapse tx w ventoclax + gilteritinib (held since 10/08) most with pre-transplant BM and LP showing FELY, admitted for MUD allo HSCT.Today is day +19 (day 0 is 10/22), getting daptomycin and cefepime for VRE bacteremia. Baseline weight: 107.1kg Donor: MUD ABO: Donor O negative, recipient O positive HLA: 05/26 ID status: Donor and recipient both CMV negative Conditioning regimen: fludarabine, busulfan GVHD regimen: Rabbit ATG, methotrexate, tacrolimus 24 Hour Events: - Code stroke called this AM for AMS (pt with word finding difficulty, difficulty following commands, no focal deficits noted, no weakness, numbness or tingling) - STAT Head CTA showed no bleed, new right occipital lobe lesion - Consult to neurology - Fevers yesterday evening, new fevers this AM, switched atbx to meropenum - Remains tachycardic - Starting to see count improvement Vitals: Last value Range last 24 hrs Temperature Temp: 37.6 ??C (99.7 ??F) Temp: [37 ??C (98.6 ??F)-38.6 ??C (101.5 ??F)] Heart Rate Heart Rate: (!) 110 Heart Rate: [106-115] Blood Pressure BP: 146/90 BP: (114-157)/(61-100) Respiratory Rate Resp: 22 Resp: [20-28] SpO2 SpO2: 94 % SpO2: [89 %-97 %] Intake/Output Summary (Last 24 hours) at 11/10/2021 1435 Last data filed at 11/10/2021 1219 Gross per 24 hour Intake 4947.35 ml Output 2350 ml Net 2597.35 ml Patient Vitals for the past 168 hrs: Weight 11/10/21 0348 103.1 kg (227 lb 4.7 oz) 11/09/21 1521 104.2 kg (229 lb 11.5 oz) 11/09/21 0132 104.1 kg (229 lb 8 oz) 11/08/21 1640 104.4 kg (230 lb 2.6 oz) 11/08/21 0100 104.4 kg (230 lb 2.6 oz) 11/07/21 1545 104.3 kg (229 lb 15 oz) 11/07/21 0334 104.1 kg (229 lb 8 oz) 11/06/21 1617 104.6 kg (230 lb 9.6 oz) 11/06/21 0356 104 kg (229 lb 4.5 oz) 11/05/21 1559 104.7 kg (230 lb 13.2 oz) 11/05/21 0320 103.3 kg (227 lb 11.8 oz) 11/04/21 1719 103.3 kg (227 lb 11.8 oz) 11/04/21 0410 102.5 kg (225 lb 15.5 oz) 11/03/21 1520 102.8 kg (226 lb 10.1 oz) Exam: GENERAL:?appeared in no acute distress, awake and watching TV MOUTH: blood noted at posterior oropharynx, diffuse inflammation and blood in oral mucosa CARDIOVASCULAR:??rrr no mrg PULMONARY:??CTAB on RA, no increased wob GASTROINTESTINAL:??Abdomen soft nontender to palpation w +BS. Colostomy with brown watery stool in place. SKIN:??bilateral petechial rash on BLEs EXT: no Edema at ankles NEUROLOGICAL:??Alert and oriented to person, place and time. No focal deficits Medications: Scheduled Meds: ??? MEROpenem 1 g Intravenous Q8H ??? loperamide 2 mg Oral BID ??? tacrolimus 0.5 mg Intravenous 2 times per day ??? morphine 4 mg Intravenous Q4H ??? DAPTOmycin 10 mg/kg/dose (Adjusted) Intravenous Q24H ??? metoprolol succinate XL 50 mg Oral Daily ??? ursodiol 300 mg Oral Daily with breakfast ??? ursodiol 600 mg Oral Daily with dinner ??? pantoprazole 40 mg Intravenous BID ??? acyclovir 250 mg/m2/dose (Anton) Intravenous Q12H ??? fluconazole 400 mg Intravenous Q24H ? ? kibiadixi-ileyzigzu-et-mag-sim 5 mL Oral 4 Times Daily AC & HS ??? gabapentin 200 mg Oral TID ??? sodium chloride 0.9 % (flush) 5 mL Intravenous BID ??? vancomycin 125 mg Oral BID ??? flecainide 50 mg Oral BID ??? supersaturated calcium phosphate 30 mL Oral 4 Times Daily ??? [START ON 11/21/2021] sulfamethoxazole-trimethoprim DS 1 tablet Oral Daily ??? filgrastim-sndz 600 mcg Subcutaneous Daily Continuous Infusions: ??? TPN Adult 120 mL/hr at 11/09/21 1821 PRN Meds:.lidocaine, sodium chloride 0.9 % (flush), magnesium sulfate, magnesium sulfate, potassium chloride, potassium chloride ER, potassium chloride ER, acetaminophen, camphor-menthoL, loperamide, alum-mag hydroxide-simeth, calcium carbonate, sucralfate, furosemide, furosemide, sodium chloride 0.9 % (flush), lidocaine, LORazepam, ondansetron, prochlorperazine, heparin, porcine, sodium chloride 0.9% (flush) Labs: Recent Labs 11/10/21 1223 11/10/21 0335 11/09/21 1845 11/09/21 0256 11/08/21 1440 11/08/21 0125 WBC -- 0.4* -- 0.1* -- 0.0* HGB -- 7.0* -- 6.2* -- 7.4* HCT -- 20.0* -- 17.8* -- 21.0* PLATELET 28* 17* 16* 13* < > 7* NEUTROABS -- 0.18* -- -- -- -- < > = values in this interval not displayed. ANC 0 Recent Labs 11/10/21 0335 11/09/21 0256 11/08/21 0125 NA 140 140 141 K 3.9 4.6 3.9 CL 100 102 107 CO2 28 28 23 BUN 23* 26* 29* CREATININE 0.96 0.99 0.95 Recent Labs 11/10/21 0335 11/09/21 0256 11/08/21 0125 CALCIUM 8.4* 8.4* 7.8* MAGNESIUM 0.72 0.79 0.72 PHOS 2.7 3.0 3.0 Recent Labs 11/07/21 0340 AST 15 ALT 27 ALKPHOS 123 BILITOT 0.5 BILIDIR 0.2 No results for input(s): INR, PT, PTT in the last 72 hours. Microbiology: BCx 11/05: NGTD BCx 11/03: 1/2 Corynebacterium species, likely contaminant BCx 11/02: VRE UA 11/03: unremarakble BCx 10/20: NGTD UA 10/20: does not look infectious Microbiology Results (Last 30 days) Procedure Component Value Units Date/Time C. Difficile Screen [[id number]] Collected: 11/09/21 1440 Lab Status: Final result Specimen: Stool Updated: 11/09/21 1548 C Diff Screen Negative Comment: Ag/Tox Neg C. diff?? Negative Clostridium difficile is not present in the specimen. If patient is having diarrhea suspected to be from an infectious cause, then Soap & Water Contact Precautions are still required. Blood culture [[id number]] Collected: 11/09/21 0428 Lab Status: Preliminary result Specimen: Blood Updated: 11/10/21 0701 Blood Culture No growth at 1 day. Blood culture [[id number]] Collected: 11/09/21 0410 Lab Status: Preliminary result Specimen: Blood Updated: 11/10/21 0701 Blood Culture No growth at 1 day. Blood culture [[id number]] Collected: 11/06/21 1224 Lab Status: Preliminary result Specimen: Blood from Hand, Left Updated: 11/09/21 1501 Blood Culture No growth at 3 days. Blood culture [[id number]] Collected: 11/06/21 1218 Lab Status: Preliminary result Specimen: Blood from Antecubital, Left Updated: 11/09/21 1501 Blood Culture No growth at 3 days. Blood culture [[id number]] Collected: 11/05/21 0935 Lab Status: Preliminary result Specimen: Blood from Hand, Left Updated: 11/09/21 1501 Blood Culture No growth at 4 days. Blood culture [[id number]] Collected: 11/05/21 0928 Lab Status: Preliminary result Specimen: Blood from Arm, Left Updated: 11/09/21 1501 Blood Culture No growth at 4 days. Blood culture [[id number]] Collected: 11/03/21 0408 Lab Status: Final result Specimen: Blood Updated: 11/08/21 0701 Blood Culture No growth at 5 days. Blood culture [[id number]] (Abnormal) Collected: 11/03/21 0356 Lab Status: Final result Specimen: Blood Updated: 11/08/21 0706 Blood Culture -- Corynebacterium species isolated : Interpretation of the importance of skin mitzy such as Coagulase Negative Staph, Viridans Strep, Corynebacteria and other Gram Positive organisms from a single Blood Culture set requires clinical correlation. Gram Stain Aerobic -- Note: This is a corrected report Growth detected in aerobic bottle. Gram Positive Rods seen Previously reported as: Gram Positive Cocci seen Results called to and read back by Denise Madera RN at 11/06/21 10:57:10 Blood culture [[id number]] (Abnormal) (Susceptibility) Collected: 11/02/21 1018 Lab Status: Final result Specimen: Blood Updated: 11/05/21 1124 Blood Culture -- Enterococcus faecium isolated * VRE, Vancomycin Resistance * Isolate saved. If future testing is required, contact the Microbiology Industrial Organizational Psychologist. Gram Stain Aerobic -- Growth detected in aerobic bottle. Gram Positive Cocci in pairs seen Gram Stain Anaerobic -- Growth detected in anaerobic bottle. Gram Positive Cocci in pairs seen Results called to and read back by Radha Marmolejo 11/03/21 02:42:51 VMartin Susceptibility Enterococcus faecium MICROSCAN METHOD Ampicillin Resistant Erythromycin Resistant Gentamicin 500 Sensitive Linezolid Sensitive Penicillin Resistant Vancomycin Resistant Linear View Blood culture [[id number]] (Abnormal) Collected: 11/02/21 1018 Lab Status: Final result Specimen: Blood Updated: 11/05/21 1125 Blood Culture -- Enterococcus faecium isolated * VRE, Vancomycin Resistance * Susceptibilities previously reported Gram Stain Anaerobic -- Growth detected in anaerobic bottle. Gram Positive Cocci in pairs seen Gram Stain Aerobic -- Growth detected in aerobic bottle. Gram Positive Cocci in pairs seen C. Difficile Screen [[id number]] Collected: 10/28/21 1207 Lab Status: Final result Specimen: Stool Updated: 10/28/21 1334 C Diff Screen Negative Comment: Ag/Tox Neg C. diff?? Negative Clostridium difficile is not present in the specimen. If patient is having diarrhea suspected to be from an infectious cause, then Soap & Water Contact Precautions are still required. Blood culture [[id number]] Collected: 10/20/21 173 Lab Status: Final result Specimen: Blood Updated: 10/25/21 2301 Blood Culture No growth at 5 days. Blood culture [[id number]] Collected: 10/20/21 173 Lab Status: Final result Specimen: Blood Updated: 10/25/21 2301 Blood Culture No growth at 5 days. Blood culture [[id number]] Collected: 10/19/21 1139 Lab Status: Final result Specimen: Blood from Antecubital, Left Updated: 10/24/21 1501 Blood Culture No growth at 5 days. Blood culture [[id number]] (Abnormal) Collected: 10/19/21 1133 Lab Status: Final result Specimen: Blood from Hand, Right Updated: 10/25/21 0910 Blood Culture -- Coagulase negative Staphylococcus species detected by PCR Interpretation of the importance of skin mitzy such as Coagulase Negative Staph, Viridans Strep, Corynebacteria and other Gram Positive organisms from a single Blood Culture set requires clinical correlation. Gram Stain Aerobic -- Growth detected in aerobic bottle. Gram Positive Cocci in clusters seen C. Difficile Screen [[id number]] Collected: 10/19/21 1020 Lab Status: Final result Specimen: Stool Updated: 10/19/21 1607 C Diff Screen Negative Comment: Ag/Tox Neg C. diff?? Negative Clostridium difficile is not present in the specimen. If patient is having diarrhea suspected to be from an infectious cause, then Soap & Water Contact Precautions are still required. COVID-19 PCR [[id number]] Collected: 10/19/21 0405 Lab Status: Final result Specimen: Nasopharyngeal Swab Updated: 10/19/21 1834 SARS-CoV-2 RNA Not Detected Comment: This result should be interpreted in combination with the clinical observations, patient history and epidemiological information in making a final diagnosis. For testing of asymptomatic individuals, assay performance characteristics and clinical utility have not been evaluated. Testing for SARS-CoV-2 (Severe acute respiratory syndrome coronavirus 2, formerly known as 2019 novel coronavirus or 2019-nCoV) to aid in the diagnosis of COVID-19 is performed using the [employer] m SARS-CoV-2 Assay as authorized by the FDA Emergency Use Authorization (EUA). This EUA assay is intended for In-vitro Diagnostic (IVD) use with respiratory specimens such as nasopharyngeal swabs collected from individuals during the acute phase of infection. This assay is performed based on the instructions for use provided by [employer] and additional guidance provided by CDC and FDA. Testing is performed in the [facility] within the Department of Pathology and Laboratory Medicine at [facility], certified under the Clinical Laboratory Improvement Amendments of 1988 (CLIA), 42 U.S.C. 263a, to perform high complexity tests. Assay performance has been verified according to clinical laboratory regulatory requirements for use with specimens collected from individuals suspected of COVID-19. Test results are provided above. A result of Not Detected indicates that the viral RNA target is not present above the limit of detection, but does not preclude SARS-CoV-2 infection. False negative results may occur if a specimen is improperly collected, transported or handled; if amplification inhibitors are present; or if inadequate numbers of viral particles are present in the specimen. When a diagnostic test is negative, the possibility of a false negative result should be considered in the context of a patient's recent exposures and the presence of clinical signs and symptoms consistent with COVID-19. A result of Detected indicates that RNA from SARS-CoV-2 was detected and the patient is infected. As required or requested by public health authorities, positive specimens may be sent for additional testing. Positive and negative predictive values for this test are highly dependent on disease prevalence. A result of Invalid indicates that neither the viral RNA targets nor the internal control target was detected. An invalid result suggests the presence of inhibitors. Recollection and re-testing is recommended in the case of an invalid result. CDC COVID-19 criteria for testing on human specimens and clinical management guidance information are available at the CDC Coronavirus Disease 2019 (COVID-19) webpage under Information for Healthcare Professionals (https://www.cdc.gov/coronavirus/2019-ncov/hcp/index.html) Additional information about this and other EUA tests can be found in provider and patient fact sheets at the following FDA website: https://www.fda.gov/medical-devices/riihqdrrzkz-vuhlcfk-2699-pryve-58-sppndpvmx- aac-qsnkkdffzynany-ndmezxn-devices/elusd-jlcxrxdewua-hwvx SARS-Cov-2 RNA Source ULTRASOUND SPEC Swab COVID-19 PCR [[id number]] Collected: 10/15/212032 Lab Status: Final result Specimen: Nasopharyngeal Swab Updated: 10/16/21 0004 SARS-CoV-2 RNA PCR Not Detected Comment: This result should be interpreted in combination with the clinical observations, patient history and epidemiological information. For testing of asymptomatic individuals, assay performance characteristics and clinical utility have not been evaluated. Testing for SARS-CoV-2 (Severe acute respiratory syndrome coronavirus 2, formerly known as 2019 novel coronavirus or 2019-nCoV) to aid in the diagnosis of COVID-19 is performed using the [employer] COVID-19 Direct Assay by [employer] as authorized by the FDA issued Emergency Use Authorization (EUA). This assay is intended for In-vitro Diagnostic (IVD) use with nasopharyngeal swabs collected from individuals meeting the CDC criteria for testing. The assay is performed based on the instructions for use and additional guidance provided by the FDA. Testing is performed in the Microbiology Laboratory within the Department of Pathology and Laboratory Medicine at [facility], certified under the Clinical Laboratory Improvement Amendments of 1988 (CLIA), 42 U.S.C. section 263a, to perform high complexity tests. Assay performance has been verified according to clinical laboratory regulatory requirements. Test results are provided above. A result of Not Detected indicates that the viral RNA target is not present but does not preclude SARS-CoV-2 infection. False negative results may occur if a specimen is improperly collected, transported or handled; if amplification inhibitors are present; or if inadequate numbers of viral particles are present in the specimen. A result of Detected suggests a current or recent infection and the patient is presumed to be infected. Positive and negative predictive values for this test are highly dependent on disease prevalence. A result of Invalid indicates the inability to conclusively determine the presence or absence of SARS-CoV-2 RNA in the sample which can be due to a variety of factors. Recollection is recommended in the case of an invalid result. CDC COVID-19 criteria for testing on human specimens and clinical management guidance information are available at the CDC Coronavirus Disease 2019 (COVID-19) webpage under Information for Healthcare Professionals (https://www.cdc.gov/coronavirus/2019-ncov/hcp/index.html). Additional information about this and other EUA tests can be found in provider and patient fact sheets at the following FDA website: https://www.fda.gov/medical-devices/joidgqgzulk-rhkltfs-3591-zudfp-37-jifvljpch- alg-ddmjctzcfqttcw-iizoeda-devices/wbmqq-osqayrkfexl-cewj SARS-CoV-2 Source ULTRASOUND SPEC Swab Pertinent radiology/diagnostic studies: CT A/P w contrast 11/03 ?? IMPRESSION ?? 1. Ill defined opacities in lingula may represent pneumonia. Consider follow-up chest x-ray if indicated. 2. No abdominal or pelvic abscess seen. 3. Hiatal hernia with fat stranding around a thick walled and dilated distal esophagus. Finding may represent esophagitis. 4. Resolution of splenomegaly. 5. No enlarged abdominal and pelvic lymph nodes. 6. No abdominal or pelvic ascites. CXR 11/04 ?? IMPRESSION Radiographically the left basilar airspace opacity seen on 11/02/2021 has resolved and findings are now similar compared to a radiograph from 10/19/2021. However, it is uncertain to which extent the mild opacities seen on CT 11/03/2021 still persist or have resolved (due to difference in technique). ?? Within the limitation of single frontal view the change in positioning of the left subclavian central venous catheter in comparison to 10/19/2021 is due to the fact that the tip has flipped into the azygos vein (unchanged to 11/02/2021). Please correlate clinically if functionalityof this catheter remains adequate. TTE 11/06 1. There are no vegetations seen on this study, if clinical suspicion for endocarditis remains, consider OLEKSANDR for further evaluation 2. Left ventricle is normal in size. LVEF is estimated at 64% by biplane. There are no wall motion abnormalities. 3. Right ventricle is milldly dilated with normal systolic function. 4. There is no pericardial effusion. ?? ASSESSMENT/PLAN: Luis Manuel Butts Kishor Anne is a 61 y.o. 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 now day + 19 (day 0 is 3/8) for MUD HSCT. Tolerated stem cell infusion well on 10/22, had some rigors and nausea post- infusion that resolved with medications. Counts remain low. Neutropenic fever on 11/02, cefepime escalated to zosyn, and then todaptomycin and cefepime after 1 day when BCx positive for VRE. TTE on 10/09 with no vegetation. Tunneled line removed 11/05. Plan for total of 2 weeks of daptomycin from 1st neg BCx until 11/17. Unfortunately, re-fevered on 11/10 during stroke event, prompting escalation of atbx to meropenum. Plan for 48 hours of coverage before de-escalation and pending culture data. Patient's high ostomy output (2-3L per day) initially improved with scheduled imodium. Lovenox stopped on 11/02 due to heme positive stool and severe mucositis, restarted on 11/07. For mucositis, on bmx, viscous lidocaine, morphine scheduled (dilaudid causes nausea). Started TPN on 10/31 (day +9). Transitioned PO medication to IV as able. Briefly on Tele when unable to take flecainide and mtop. For his bilateral feet neuropathy, will continue gabapentin to 200mg TID as tolerated He developed confusion (word finding difficulty, difficulty following commands, no focal deficits) on 11/10 concerning for acute bleed in the setting of low platelets (17). Stroke alert was called and STAT CT head showed no bleed but small lesion in the R occipital lobe concerning for stroke. STAT MRI ordered, pending at time of writing. Have discussed with neurology, appreciate recs Plan: #Ischemic Stroke - Hemorrhagic stroke ruled out with CTA Head - R occipital lesion identified - MRI brain pending for characterization - Permissive hypertension for now - Not a TPA candidate per neurology #VRE bacteremia #Neutropenic fever - likely from gut translocation from mucositis - abx: - cefepime 10/19 - 11/02, 11/03 - 11/10 - Meropenum 11/10 - p - zosyn 11/02 - daptomycin 11/02 - 11/17 - BCx 11/03: 1/2 Corynebacterium species (likely contaminant) - BCx 11/05 NGTD - OLEKSANDR 11/06 no vegetation - BCx 11/10: pending #STACIE, pre-renal, improving - pre-renal, noted on 10/27 - s/p 1L Bolus on 10/27 and 10/28, encourage imodium to thicken ostomy output - mIVF (10/29 -> 11/01) - continue to monitor, on TPN so no IVF #AML #MUD HSCT Day (-7): Fludarabine: Day (-6): Fludarabine, Busulfan, Rabbit ATG: Day (-5): Fludarabine, Busulfan, Rabbit ATG: Day (-4): Fludarabine, Busulfan, Rabbit ATG: Day (-3): Fludarabine, Busulfan: Day (0): Stem Cell Infusion: Day (+1): metHOTREXate: Day (+3): metHOTREXate: Day (+6): metHOTREXate: Day (+11): metHOTREXate: General - q4h vitals - strict Is/Os 2x daily - weigh patient 2x daily, notify provider if weight increases by 1kg or more in 12 hour period ?- lasix 20mg IV prn weight gain >1 kg above admission baseline ?- lasix 20mg IV for weight gain 1 kg over 12 hours or input exceeding output by greater than 1,000 ml/12h - neutropenic precautions - incentive spirometry q2h while awake - activity as tolerated - electrolyte replacement - not checking CMV b/c both recipient and donor are CMV negative - check EBV every 14 days until day +100 (01/24/22) Chemotherapy/Support - Busulfan 204mg??day (-6) to day (-3) -??Fludarabine??61??mg 102ml infusion once over 30 minutes day -7 Then every 24 hours at 0900 for 4 doses day (-6) to day (-3) - Rabbit ATG??124.8mg over 10 hours day (-6), 166.4mg on day (-5) 208??on day (-4).?? - Day 0 stem cell infusion. Premedicate with acetaminophen 650mg, diphenhydramine 50mg) - Methotrexate??10mg??day (+1), day (+3), day (+6), day (+11). Hold for serum creatinine >2, bilirubin >5, fluid accumulation (large effusion or ascites), severe mucositis if potential need for intubation. - filgrastim??600mcg qd starting day (+7) until ANC >1500 ?? Laboratory Monitoring - weekly CMV PCR starting day +10, then weekly thereafter - IgG every 2 weeks starting day +1 to day +100 - U/A s/ reflex culture on admission, then daily on days -2, -1, 0? Transfusion parameters - Hgb <??7 - PLT <10, or if febrile??or bleeding??<20 - keep active T&S once hgb <8 ?? Prophylaxis Seizure ppx ?-phenytoin 300 day (-6) through (-1) - GI ppx ?- pantoprazole 40mg qd - mucositis ppx ?- supersaturated calcium phosphate oral solution 30ml 4x daily starting on admission until resolution of mucositis and ANC ?>500 - infection ppx ?- fluconazole 400mg qd starting day (0) ?- levofloxacin 750mg qd starting day (0) until ANC >500, changed tocefepime due to fever on 10/19 ?- acyclovir 800mg bid starting day (-7) ?- bactrim DS 1 tablet daily from day (-7) through day (-2) ?- bactrim DS 1 tablet MWF starting day (30) - GVHD ppx?-??Tacrolimus??0.7mg IV bid?? - Started day (-2),?target 5-10 trough - VOD ppx ?- lovenox 40mg qd day (-7) through (30) per Dr. Modi's note, he should continue lovenox 100mg qd until plt apx <40 then switch to VOD ppx dose. ?- ursodiol 300mg qAM??&??qPM day (-7) through day (+30) Hydration - NaCl 0.9% continuous??150ml/hr x??day (-6) ??Through (-3) ?? Pain/Nausea/Appetite - avoid acetaminophen through??day??(-3) - avoid steroid antiemetics - palonosetron 0.25mg day (-6) - aprepitant 130mg day (-6) prior to??busulfan - lorazepam 0.5mg IV q4h prn nausea, anxiety - ondansetron??8mg q8h prn nausea, vomiting beginning day (-3) - prochlorperazine 10mg IV q6h prn nausea, vomiting - use ondansetron >??prochlorperazine or promethazine >??lorazepam >??metoclopramide - olanzapine 5mg qhs starting day (-3) for 5 doses?? - morphine scheduled ?? #Fever, neutropenic - 102.9 10/19 - 100.8 11/02 - CXR benign - C. Diff negative - UA unremarkable - BCx 10/20 negative - BCx 11/02 pending - Zosyn 11/02 - cefepime 10/19 - 11/02, 11/03 - p - vanc 10/20 - 10/22 - daptomycin 11/02 - p #Paroxysmal Afib - Continue home metoprolol, flecainide ?? #Hx of provoked PE in Apr 2021 - On lovenox 100mg qd (held prior to central line placement) - Continue until plt reach approximately 40 followed by switch to prophylactic dosing - may not need upon discharge b/c s/p 3 months of AC ?? #Hx of C diff colitis - Continue home PO vancomycin as tolerated - Ostomy care - C. Diff negative 10/28 #Bilateral Feet tingling - pt reports having baseline bilateral feet tingling that was noted to be worsened on on 10/21 (2 daysafter completing 5 days of fludarabine), strength intact, no loss of sensation - start gabapentin 100mg TID (10/21 - 10/23), 200mg TID (10/23 - p) #GERD - takes protonix at home - current regimen: protonix bid, carafate, tums, #Pancytopenia 2/2 to chemo and disease - continue to monitor, transfuse as needed for support #Routine DVT PPx: lovenox 40mg Diet: Neutropenic (BMT) diet Dispo: [place] CODE STATUS: Attempt Cardiopulmonary Resuscitation - Inpatient Tonio Diaz Jr, MD PGY1 Internal Medicine 11/10/2021 Heme/Onc/BMT Team A Pager #[phone] Associated attestation - Renay Ponce MD - 11/10/2021 2:39 PM EDT HEMATOLOGY STAFF ADDENDUM I have independently interviewed and examined this patient and have personally reviewed the relevantclinical, laboratory and radiological data with the housestaff on rounds. Please refer to the comprehensive progress note above, with which I concur. I have reviewed and endorse the plan as outlined and have made any additions/corrections below. This patient meets criteria for inpatient level of care based on the above medical complexity. A/P Luis Manuel Mobley Jr. is a 61 YOM with high-risk (FLT3+) AML adm???d on 10/15 for [id number]-[id number] via Flu/Bu/ATG regimen. Pretransplant course marked by dev't of C difficile colitis with toxic megacolon, s/p yix-flnuq-gyduzkubn, with ostomy, then dev't of 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 Day +19 today. He was found to have word finding difficulties today. Found to have small ischemic stroke. Unclear if this location explains the deficit, so will pursue MRI brain. Will also perform cardiac work up. Because of fevers, and the neuro acute events, will switch to Meropenem, for better gut anaerobe coverage. # Severe mucositis - on morphine prn. Offered SWATCHER, but patient declined. Happy with current regimen. - Most meds switched to IV. - TPN; continue supportive measures. # ID: Neutropenic fever: Afebrile since 11/04 VRE bacteremia : noted on Bl Cx from 11/02; Rpt Cx on 11/03 growing GPC and Corynebacterium. ECHO - no vegetations. - On cefepime, daptomycin per ID. - On Acyclovir and fluconazole ppx ; On oral Vanc for C. Diff ppx # Pancytopenia - 2ry to chemo. - on Zarxio and prn transfusions. # GVHD ppx - On Tacrolimus 0.7mg IV BID . T ac level 11/04 - 7.8. # VOD ppx - on Ursodiol ; D/C lovenox for increased oral bleeding from mucositis # GI , Ostomy - C. Diff neg. On prn imodium for increased out put I reviewed his situation and our plans with the team, RN and pt on rounds today. Central Venous Access Statement of Need Tunneled catheter - clean dry intact site Can the central IV access be removed? [ Yes [x ] No [ ] N/A If no, reason for central access: [X] Stem cell transplant patient or AML induction Vero Sarah RN - 11/10/2021 5:56 AM EDT Illness Severity [x] Stable [] Watcher [] Unstable Patient Summary Reason for admission: Day +19 (11/10) of 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 Significant 24 hour events: 11/09PM: Afebrile. Refused PO meds r/t 10/10 mouth pain, scheduled IV 4mg morphine in addition to onetime 2mg morphine given. Placed on tele r/t not taking flecainide, HR 100s-110s at rest and 130s-140s with ambulation, MD aware. Ileostomy leaking, appliance changed. PRN K+ given per protocol. Action List Needs encouragement/reminders to take pills If can't take flecainide and/or metop will need to go back on tele TPN @120mL/hr IV cefepime and daptomycin for bacteremia Pre-medicate for pain and nausea for po medications CHG line only Ostomy care, monitor output Martha Pelayo RN - 11/09/2021 6:37 PM EDT Patient Summary Reason for admission: Day +18 (11/09) of 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 11/09 AM: Tmax 38.6 today around 1730, HR up to low 150's with ambulation, asymptomatic. Continues with 8/10 mucositis pain; refusing pierce. Morphine intermittently, unable to take imodium and gabapentin d/t pain. Cefepime administered per OCT. TPN continued @120mL/hr. D/t fever overnight, c.diff sample collected, S+W precautions initiated. C.diff negative, S+W precautions discontinued. 1u platelets infused, IV Tylenol administered, platelet recheck sent. Stool and urine heme positive. Resting between care. Action List Needs encouragement/reminders to take pills If can't take flecainide and/or metop will need to go back on tele TPN @120mL/hr IV cefepime and daptomycin for bacteremia Pre-medicate for pain and nausea for po medications CHG line only Ostomy care, monitor output INDIVIDUALIZED FALL PREVENTION INTERVENTIONS: Patient-specific fall risk factors per assessment: [current deficits]: High fall risk d/t IV therapy, secondary diagnosis, ostomy, generalized weakness Assistance [level of assistance required for transfers and ambulation]: IND (BA refusal) Supervision [direct monitoring required during toileting and ADLs]: IND Surveillance [continuous indirect monitoring]: Masimo, bed alarm, room near unit station, call lightwithin reach, purposeful hourly founding Patient-specific fall prevention interventions for sensory deficits provided, if applicable: CPG GOAL OUTCOME EVALUATION: Caridad Coats RD - 11/09/2021 11:10 AM EDT Images from the original note were not included. Nutrition Progress Note Luis Manuel Mobley Jr. is a 61 y.o. 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 Reason for intervention: Follow up and TPN Comments: TPN to provide 235g dextrose, 110g protein, and 60g lipid in 2,880mL. 1/2 NS. Decreased K by 20mEq. Daily BMP with mag and phos please. Weekly LFTs and TG while on TPN. Monitor wt daily I was able to discuss plan with provider Hem/Onc pager #[phone]. Nutrition Support: TPN Medication Recent History (Show up to 3 orders; newest on the left. Changes between the two mostrecent orders are indicated.) Start date and time 11/09/2021 1800 11/08/2021 1800 11/07/2021 1800 TPN Adult [[id number]] TPN Adult [[id number]] TPN Adult [[id number]] Order Status Active Last Dose in Progress Completed Last Admin New Bag at 11/08/2021 1803 by Martha Pelayo RN New Bag at 11/07/2021 1828 by Cande Beck RN Frequency Continuous (1800) Continuous (1800) Continuous (1800) Additives adult multivitamin 5 mL 5 mL 5 mL adult trace elements Zn-Cu-Mn-Se (Tralement) 0.5 mL 0.5 mL 0.5 mL folic acid 400 mcg 400 mcg 400 mcg Vit O9-U2-F4-B5-B6 (B Complex) 1 mL 1 mL 1 mL Electrolytes potassium phosphate 22 mmol 22 mmol 22 mmol potassium chloride 56 mEq 76 mEq 76 mEq sodium chloride 20 mEq 20 mEq 50 mEq sodium acetate 202 mEq 202 mEq 172 mEq calcium gluconate 8 mEq 8 mEq 8 mEq magnesium sulfate 36 mEq 36 mEq 32 mEq Dextrose dextrose 70% 235 g 235 g 235 g Amino Acids amino acid 15% no.5 (ClinisoL) 110 g 110 g 110 g QS Base sterile water 1,437.02 mL 1,427.02 mL 1,435.51 mL Lipid fat emulsion (Intralipid) 30 % 60 g 60 g 60 g Energy Contribution Proteins 440 kcal 440 kcal 440 kcal Dextrose 798.97 kcal 798.97 kcal 798.97 kcal Lipids 600 kcal 600 kcal 600 kcal Total 1,838.97 kcal 1,838.97 kcal 1,838.97 kcal Electrolyte Ion Calculated Amount Sodium 222 mEq 222 mEq 222 mEq Potassium 88.27 mEq 108.27 mEq 108.27 mEq Calcium 8 mEq 8 mEq 8 mEq Magnesium 36 mEq 36 mEq 32 mEq Aluminum -- -- -- Phosphate 25 mmol 25 mmol 25 mmol Chloride 76 mEq 96 mEq 126 mEq Acetate 295.13 mEq 295.13 mEq 265.13 mEq Chloride: Acetate Ratio 0.26 0.325 0.475 Trace Elements Copper 0.15 mg 0.15 mg 0.15 mg Manganese 27.5 mcg 27.5 mcg 27.5 mcg Selenium 30 mcg 30 mcg 30 mcg Zinc 1.5 mg 1.5 mg 1.5 mg Other Total Amino Acid 110 g 110 g 110 g Total Amino Acid/kg 1.06 g/kg 1.05 g/kg 1.06 g/kg Glucose Infusion Rate 1.57 mg/kg/min 1.57 mg/kg/min 1.56 mg/kg/min Osmolarity 1,049.89 1,063.78 1,061 Volume 2,880 mL 2,880 mL 2,880 mL Rate 120 mL/hr 120 mL/hr 120 mL/hr Dosing Weight 104.1 kg 104.4 kg 104.1 kg Infusion Site Central Central Central Total Multi-vitamins 5 mL 5 mL 5 mL Lab Results Component Value Date NA 140 11/09/2021 K 4.6 11/09/2021 CL 102 11/09/2021 CO2 28 11/09/2021 BUN 26 (H) 11/09/2021 CREATININE 0.99 11/09/2021 ESTGFR 82 11/09/2021 MAGNESIUM 0.79 11/09/2021 CALCIUM 8.4 (L) 11/09/2021 PHOS 3.0 11/09/2021 AST 15 11/07/2021 ALT 27 11/07/2021 ALKPHOS 123 11/07/2021 BILITOT 0.5 11/07/2021 BILIDIR 0.2 11/07/2021 TRIG 171 07/13/2021 HA1C 4.8 07/13/2021 [id number] 1,799 (H) 08/01/2021 SFOLATE 5.6 08/01/2021 IRON [...] Injury Device Sites: O2 sat monitor, IV sites, other (see comments) (ostomy) Other Sites: ostomy, R DL PICC, R SL mediport Relevant medications: BMX, imodium (not given), protonix, caphosol, prograf, zofran prn Last Bowel Movement: 11/09/21 Intake/Output Summary (Last 24 hours) at 11/09/2021 1110 Last data filed at 11/09/2021 1100 Gross per 24 hour Intake 5411.57 ml Output 4475 ml Net 936.57 ml Admit Weight: 107.1 kg Estimated body mass index is 33.23 kg/m?? as calculated from the following: Height as of this encounter: 177 cm (5' 9.69). Weight as of this encounter: 104.1 kg (229 lb 8 oz). Anton Body Weight: 74.6 kg Usual Body Weight: 235 lbs per pt Wt Readings from Last 10 Encounters: 11/09/21 104.1 kg (229 lb 8 oz) 10/15/21 107.8 kg (237 lb 9.6 oz) 10/04/21 107.2 kg (236 lb 6.4 oz) 09/27/21 109 kg (240 lb 6.4 oz) 09/16/21 105.9 kg (233 lb 6.4 oz) 09/12/21 106.6 kg (235 lb) 09/09/21 102.8 kg (226 lb 9.6 oz) 09/05/21 106.8 kg (235 lb 6.4 oz) 08/26/21 102.8 kg (226 lb 9.6 oz) 08/19/21 100.2 kg (221 lb) Patient Vitals for the past 168 hrs: Weight 11/09/21 0132 104.1 kg (229 lb 8 oz) 11/08/21 1640 104.4 kg (230 lb 2.6 oz) 11/08/21 0100 104.4 kg (230 lb 2.6 oz) 11/07/21 1545 104.3 kg (229 lb 15 oz) 11/07/21 0334 104.1 kg (229 lb 8 oz) 11/06/21 1617 104.6 kg (230 lb 9.6 oz) 11/06/21 0356 104 kg (229 lb 4.5 oz) 11/05/21 1559 104.7 kg (230 lb 13.2 oz) 11/05/21 0320 103.3 kg (227 lb 11.8 oz) 11/04/21 1719 103.3 kg (227 lb 11.8 oz) 11/04/21 0410 102.5 kg (225 lb 15.5 oz) 11/03/21 1520 102.8 kg (226 lb 10.1 oz) 11/03/21 0400 102.3 kg (225 lb 8.5 oz) 11/02/21 1618 103.1 kg (227 lb 4.7 oz) Assessment: Estimated needs: Calories: 1865 (25 kcal/kg IBW) Protein: 89-112 grams (1.2-1.5 g/kg IBW) Nutrition Focused Physical Exam (NFPE): Performed on 10/28/21. Subcutaneous fat loss at Orbital region: None present Upper arm region (triceps/biceps): None present Thoracic and lumbar region (ribs, lower back and maxillary line): Not assessed Lean muscle loss to Orthodoxy region (temporalis muscle): None present Clavicle bone region (pectoralis major): None present Dorsal hand (interosseous muscle): None present Shoulder (deltoid): None present Scapular bone region (latissimus dorsi, trapezius muscles): Not assessed Thigh region (quadriceps muscle): None present Posterior calf region (gastrocnemius muscle): None present Fluid accumulation: Not assessed Nutrition intake and intake history/Interview: 11/09: Message from pharmacy re: K of 4.6. Reduced K in TPN by 20mEq. 11/07: 40mEq of KCl repletion noted yesterday. 11/06: 60mEq of KCl repletion noted yesterday. 11/04: Luis Manuel reported a poor appetite today, not taking solids d/t mucositis and primarily taking in water as fluids, gatorade at bedside. Ileostomy output high, although per pt output is stable. Continue to monitor wt, below reported UBW. Protein-calorie Malnutrition: Not enough data to assess (RAFA Barnes J Parenteral Enteral Nutr. 2011; 36(3): 273-83) Nutrition to continue to follow up while inpatient. Thank you, Caridad Coats RD Pager #:[phone] Stacy Marin MD - 11/09/2021 8:12 AM EDT Images from the original note were not included. Inpatient Hematology/Oncology/SCT Progress Note Patient info: Name: Luis Manuel Mobley Jr. : 1960 PCP: LEISA Munguia PCP phone number: [phone] Date of Admission: 10/15/2021 ( Hospital Day 25 days ) Service: Hem/Onc Team A pg [id number] (09/03) Responsible Attending:Renay Ponce MD ID: Luis Manuel Mobley Jr. is a 61 y.o. 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 Baseline weight: 107.1kg Donor: MUD ABO: Donor O negative, recipient O positive HLA: 05/26 ID status: Donor and recipient both CMV negative Conditioning regimen: fludarabine, busulfan GVHD regimen: Rabbit ATG, methotrexate, tacrolimus 24 Hour Events: - Overnight, fevered to 38.1, BCx and got IV tylenol, 03/26 mucositis pain relived with morphine, 1 unit of pRBC ordered - This AM, appeared more tired compared to yesterday, still has diffuse petechial rash on legs - vitals: tachy 100s with fever - Weight 104.4kg -> 104.1kg - In/Out +562 - hgb 6.2 so got a unit - f/u BCx 11/09 Vitals: Last value Range last 24 hrs Temperature Temp: 37.3 ??C (99.1 ??F) Temp: [36.8 ??C (98.2 ??F)-38.1 ??C (100.6 ??F)] Heart Rate Heart Rate: (!) 108 Heart Rate: [92-114] Blood Pressure BP: 130/74 BP: (112-148)/(72-100) Respiratory Rate Resp: 18 Resp: [17-20] SpO2 SpO2: 97 % SpO2: [90 %-98 %] Intake/Output Summary (Last 24 hours) at 11/09/2021 0812 Last data filed at 11/09/2021 0735 Gross per 24 hour Intake 5570.57 ml Output 4325 ml Net 1245.57 ml Patient Vitals for the past 168 hrs: Weight 11/09/21 0132 104.1 kg (229 lb 8 oz) 11/08/21 1640 104.4 kg (230 lb 2.6 oz) 11/08/21 0100 104.4 kg (230 lb 2.6 oz) 11/07/21 1545 104.3 kg (229 lb 15 oz) 11/07/21 0334 104.1 kg (229 lb 8 oz) 11/06/21 1617 104.6 kg (230 lb 9.6 oz) 11/06/21 0356 104 kg (229 lb 4.5 oz) 11/05/21 1559 104.7 kg (230 lb 13.2 oz) 11/05/21 0320 103.3 kg (227 lb 11.8 oz) 11/04/21 1719 103.3 kg (227 lb 11.8 oz) 11/04/21 0410 102.5 kg (225 lb 15.5 oz) 11/03/21 1520 102.8 kg (226 lb 10.1 oz) 11/03/21 0400 102.3 kg (225 lb 8.5 oz) 11/02/21 1618 103.1 kg (227 lb 4.7 oz) Exam: GENERAL:?appeared in no acute distress, awake and watching TV MOUTH: blood noted at posterior oropharynx, diffuse inflammation and blood in oral mucosa CARDIOVASCULAR:??rrr no mrg PULMONARY:??CTAB on RA, no increased wob GASTROINTESTINAL:??Abdomen soft nontender to palpation w +BS. Colostomy with brown watery stool in place. SKIN:??bilateral petechial rash on BLEs EXT: no Edema at ankles NEUROLOGICAL:??Alert and oriented to person, place and time. No focal deficits Medications: Scheduled Meds: ??? loperamide 2 mg Oral BID ??? tacrolimus 0.5 mg Intravenous 2 times per day ??? morphine 4 mg Intravenous Q4H ??? DAPTOmycin 10 mg/kg/dose (Adjusted) Intravenous Q24H ??? ceFEPime 2 g Intravenous Q8H ??? metoprolol succinate XL 50 mg Oral Daily ??? ursodiol 300 mg Oral Daily with breakfast ??? ursodiol 600 mg Oral Daily with dinner ??? pantoprazole 40 mg Intravenous BID ??? acyclovir 250 mg/m2/dose (Anton) Intravenous Q12H ??? fluconazole 400 mg Intravenous Q24H ? ? hmpprgfxc-iaztlzxtd-za-mag-sim 5 mL Oral 4 Times Daily AC & HS ??? gabapentin 200 mg Oral TID ??? sodium chloride 0.9 % (flush) 5 mL Intravenous BID ??? vancomycin 125 mg Oral BID ??? flecainide 50 mg Oral BID ??? supersaturated calcium phosphate 30 mL Oral 4 Times Daily ??? [START ON 11/21/2021] sulfamethoxazole-trimethoprim DS 1 tablet Oral Daily ??? filgrastim-sndz 600 mcg Subcutaneous Daily Continuous Infusions: ??? TPN Adult 120 mL/hr at 11/08/21 1803 PRN Meds:.lidocaine, sodium chloride 0.9 % (flush), magnesium sulfate, magnesium sulfate, potassium chloride, potassium chloride ER, potassium chloride ER, acetaminophen, camphor-menthoL, loperamide, alum-mag hydroxide-simeth, calcium carbonate, sucralfate, furosemide, furosemide, sodium chloride 0.9 % (flush), lidocaine, LORazepam, ondansetron, prochlorperazine, heparin, porcine, sodium chloride 0.9% (flush) Labs: Recent Labs 11/09/21 0256 11/08/21 1440 11/08/21 0125 11/07/21 0340 WBC 0.1* -- 0.0* 0.0* HGB 6.2* -- 7.4* 7.8* HCT 17.8* -- 21.0* 21.5* PLATELET 13* 19* 7* 14* ANC 0 Recent Labs 11/09/21 0256 11/08/21 0125 11/07/21 0340 NA 140 141 140 K 4.6 3.9 4.1 CL 102 107 104 CO2 28 23 24 BUN 26* 29* 32* CREATININE 0.99 0.95 1.07 Recent Labs 11/09/21 0256 11/08/21 0125 11/07/21 0340 CALCIUM 8.4* 7.8* 8.6 MAGNESIUM 0.79 0.72 0.90 PHOS 3.0 3.0 3.0 Recent Labs 11/07/21 0340 AST 15 ALT 27 ALKPHOS 123 BILITOT 0.5 BILIDIR 0.2 No results for input(s): INR, PT, PTT in the last 72 hours. Microbiology: BCx 11/05: NGTD BCx 11/03: 1/2 Corynebacterium species, likely contaminant BCx 11/02: VRE UA 11/03: unremarakble BCx 10/20: NGTD UA 10/20: does not look infectious Microbiology Results (Last 30 days) Procedure Component Value Units Date/Time Blood culture [[id number]] Collected: 11/06/21 1224 Lab Status: Preliminary result Specimen: Blood from Hand, Left Updated: 11/08/21 1502 Blood Culture No growth at 2 days. Blood culture [[id number]] Collected: 11/06/21 1218 Lab Status: Preliminary result Specimen: Blood from Antecubital, Left Updated: 11/08/21 1502 Blood Culture No growth at 2 days. Blood culture [[id number]] Collected: 11/05/21 0935 Lab Status: Preliminary result Specimen: Blood from Hand, Left Updated: 11/08/21 1502 Blood Culture No growth at 3 days. Blood culture [[id number]] Collected: 11/05/21 0928 Lab Status: Preliminary result Specimen: Blood from Arm, Left Updated: 11/08/21 1502 Blood Culture No growth at 3 days. Blood culture [[id number]] Collected: 11/03/21 0408 Lab Status: Final result Specimen: Blood Updated: 11/08/21 0701 Blood Culture No growth at 5 days. Blood culture [[id number]] (Abnormal) Collected: 11/03/21 0356 Lab Status: Final result Specimen: Blood Updated: 11/08/21 0706 Blood Culture -- Corynebacterium species isolated : Interpretation of the importance of skin mitzy such as Coagulase Negative Staph, Viridans Strep, Corynebacteria and other Gram Positive organisms from a single Blood Culture set requires clinical correlation. Gram Stain Aerobic -- Note: This is a corrected report Growth detected in aerobic bottle. Gram Positive Rods seen Previously reported as: Gram Positive Cocci seen Results called to and read back by Denise Madera RN at 11/06/21 10:57:10 Blood culture [[id number]] (Abnormal) (Susceptibility) Collected: 11/02/21 1018 Lab Status: Final result Specimen: Blood Updated: 11/05/21 1124 Blood Culture -- Enterococcus faecium isolated * VRE, Vancomycin Resistance * Isolate saved. If future testing is required, contact the Microbiology Industrial Organizational Psychologist. Gram Stain Aerobic -- Growth detected in aerobic bottle. Gram Positive Cocci in pairs seen Gram Stain Anaerobic -- Growth detected in anaerobic bottle. Gram Positive Cocci in pairs seen Results called to and read back by Radha Marmolejo 11/03/21 02:42:51 VMartin Susceptibility Enterococcus faecium MICROSCAN METHOD Ampicillin Resistant Erythromycin Resistant Gentamicin 500 Sensitive Linezolid Sensitive Penicillin Resistant Vancomycin Resistant Linear View Blood culture [[id number]] (Abnormal) Collected: 11/02/21 1018 Lab Status: Final result Specimen: Blood Updated: 11/05/21 1125 Blood Culture -- Enterococcus faecium isolated * VRE, Vancomycin Resistance * Susceptibilities previously reported Gram Stain Anaerobic -- Growth detected in anaerobic bottle. Gram Positive Cocci in pairs seen Gram Stain Aerobic -- Growth detected in aerobic bottle. Gram Positive Cocci in pairs seen C. Difficile Screen [[id number]] Collected: 10/28/21 1207 Lab Status: Final result Specimen: Stool Updated: 10/28/21 1334 C Diff Screen Negative Comment: Ag/Tox Neg C. diff?? Negative Clostridium difficile is not present in the specimen. If patient is having diarrhea suspected to be from an infectious cause, then Soap & Water Contact Precautions are still required. Blood culture [[id number]] Collected: 10/20/21 173 Lab Status: Final result Specimen: Blood Updated: 10/25/21 2301 Blood Culture No growth at 5 days. Blood culture [[id number]] Collected: 10/20/21 1732 Lab Status: Final result Specimen: Blood Updated: 10/25/21 2301 Blood Culture No growth at 5 days. Blood culture [[id number]] Collected: 10/19/21 1139 Lab Status: Final result Specimen: Blood from Antecubital, Left Updated: 10/24/21 1501 Blood Culture No growth at 5 days. Blood culture [[id number]] (Abnormal) Collected: 10/19/21 1133 Lab Status: Final result Specimen: Blood from Hand, Right Updated: 10/25/21 0910 Blood Culture -- Coagulase negative Staphylococcus species detected by PCR Interpretation of the importance of skin mitzy such as Coagulase Negative Staph, Viridans Strep, Corynebacteria and other Gram Positive organisms from a single Blood Culture set requires clinical correlation. Gram Stain Aerobic -- Growth detected in aerobic bottle. Gram Positive Cocci in clusters seen C. Difficile Screen [[id number]] Collected: 10/19/21 1020 Lab Status: Final result Specimen: Stool Updated: 10/19/21 1607 C Diff Screen Negative Comment: Ag/Tox Neg C. diff?? Negative Clostridium difficile is not present in the specimen. If patient is having diarrhea suspected to be from an infectious cause, then Soap & Water Contact Precautions are still required. COVID-19 PCR [[id number]] Collected: 10/19/21 0405 Lab Status: Final result Specimen: Nasopharyngeal Swab Updated: 10/19/21 1834 SARS-CoV-2 RNA Not Detected Comment: This result should be interpreted in combination with the clinical observations, patient history and epidemiological information in making a final diagnosis. For testing of asymptomatic individuals, assay performance characteristics and clinical utility have not been evaluated. Testing for SARS-CoV-2 (Severe acute respiratory syndrome coronavirus 2, formerly known as 2019 novel coronavirus or 2019-nCoV) to aid in the diagnosis of COVID-19 is performed using the [employer] SARS-CoV-2 Assay as authorized by the FDA Emergency Use Authorization (EUA). This EUA assay is intended for In-vitro Diagnostic (IVD) use with respiratory specimens such as nasopharyngeal swabs collected from individuals during the acute phase of infection. This assay is performed based on the instructions for use provided by [employer] and additional guidance provided by CDC and FDA. Testing is performed in the [facility] within the Department of Pathology and Laboratory Medicine at [facility], certified under the Clinical Laboratory Improvement Amendments of 1988 (CLIA), 42 U.S.C. 263a, to perform high complexity tests. Assay performance has been verified according to clinical laboratory regulatory requirements for use with specimens collected from individuals suspected of COVID-19. Test results are provided above. A result of Not Detected indicates that the viral RNA target is not present above the limit of detection, but does not preclude SARS-CoV-2 infection. False negative results may occur if a specimen is improperly collected, transported or handled; if amplification inhibitors are present; or if inadequate numbers of viral particles are present in the specimen. When a diagnostic test is negative, the possibility of a false negative result should be considered in the context of a patient's recent exposures and the presence of clinical signs and symptoms consistent with COVID-19. A result of Detected indicates that RNA from SARS-CoV-2 was detected and the patient is infected. As required or requested by public health authorities, positive specimens may be sent for additional testing. Positive and negative predictive values for this test are highly dependent on disease prevalence. A result of Invalid indicates that neither the viral RNA targets nor the internal control target was detected. An invalid result suggests the presence of inhibitors. Recollection and re-testing is recommended in the case of an invalid result. CDC COVID-19 criteria for testing on human specimens and clinical management guidance information are available at the CDC Coronavirus Disease 2019 (COVID-19) webpage under Information for Healthcare Professionals (https://www.cdc.gov/coronavirus/2019-ncov/hcp/index.html) Additional information about this and other EUA tests can be found in provider and patient fact sheets at the following FDA website: https://www.fda.gov/medical-devices/pdjcdhjvxxa-vjdzpza-2884-wlqeh-10-yxasdjrsj- eoe-glbjoagzvzanww-buuudhx-devices/xgslx-nbmrrytlcxk-nudi SARS-Cov-2 RNA Source ULTRASOUND SPEC Swab COVID-19 PCR [[id number]] Collected: 10/15/212032 Lab Status: Final result Specimen: Nasopharyngeal Swab Updated: 10/16/21 0004 SARS-CoV-2 RNA PCR Not Detected Comment: This result should be interpreted in combination with the clinical observations, patient history and epidemiological information. For testing of asymptomatic individuals, assay performance characteristics and clinical utility have not been evaluated. Testing for SARS-CoV-2 (Severe acute respiratory syndrome coronavirus 2, formerly known as 2019 novel coronavirus or 2019-nCoV) to aid in the diagnosis of COVID-19 is performed using the Simplexa COVID-19 Direct Assay by [employer] as authorized by the FDA issued Emergency Use Authorization (EUA). This assay is intended for In-vitro Diagnostic (IVD) use with nasopharyngeal swabs collected from individuals meeting the CDC criteria for testing. The assay is performed based on the instructions for use and additional guidance provided by the FDA. Testing is performed in the Microbiology Laboratory within the Department of Pathology and Laboratory Medicine at [facility], certified under the Clinical Laboratory Improvement Amendments of 1988 (CLIA), 42 U.S.C. section 263a, to perform high complexity tests. Assay performance has been verified according to clinical laboratory regulatory requirements. Test results are provided above. A result of Not Detected indicates that the viral RNA target is not present but does not preclude SARS-CoV-2 infection. False negative results may occur if a specimen is improperly collected, transported or handled; if amplification inhibitors are present; or if inadequate numbers of viral particles are present in the specimen. A result of Detected suggests a current or recent infection and the patient is presumed to be infected. Positive and negative predictive values for this test are highly dependent on disease prevalence. A result of Invalid indicates the inability to conclusively determine the presence or absence of SARS-CoV-2 RNA in the sample which can be due to a variety of factors. Recollection is recommended in the case of an invalid result. CDC COVID-19 criteria for testing on human specimens and clinical management guidance information are available at the CDC Coronavirus Disease 2019 (COVID-19) webpage under Information for Healthcare Professionals (https://www.cdc.gov/coronavirus/2019-ncov/hcp/index.html). Additional information about this and other EUA tests can be found in provider and patient fact sheets at the following FDA website: https://www.fda.gov/medical-devices/zflbsujcijj-kudxljq-9592-vjiti-60-iazftbclz- yuq-ahzukvqxwcenoj-vtwiivu-devices/svzlo-jrqhscmrago-dker SARS-CoV-2 Source ULTRASOUND SPEC Swab Pertinent radiology/diagnostic studies: CT A/P w contrast 11/03 ?? IMPRESSION ?? 1. Ill defined opacities in lingula may represent pneumonia. Consider follow-up chest x-ray if indicated. 2. No abdominal or pelvic abscess seen. 3. Hiatal hernia with fat stranding around a thick walled and dilated distal esophagus. Finding may represent esophagitis. 4. Resolution of splenomegaly. 5. No enlarged abdominal and pelvic lymph nodes. 6. No abdominal or pelvic ascites. CXR 11/04 ?? IMPRESSION Radiographically the left basilar airspace opacity seen on 11/02/2021 has resolved and findings are now similar compared to a radiograph from 10/19/2021. However, it is uncertain to which extent the mild opacities seen on CT 11/03/2021 still persist or have resolved (due to difference in technique). ?? Within the limitation of single frontal view the change in positioning of the left subclavian central venous catheter in comparison to 10/19/2021 is due to the fact that the tip has flipped into the azygos vein (unchanged to 11/02/2021). Please correlate clinically if functionalityof this catheter remains adequate. TTE 11/06 1. There are no vegetations seen on this study, if clinical suspicion for endocarditis remains, consider OLEKSANDR for further evaluation 2. Left ventricle is normal in size. LVEF is estimated at 64% by biplane. There are no wall motion abnormalities. 3. Right ventricle is milldly dilated with normal systolic function. 4. There is no pericardial effusion. ?? ASSESSMENT/PLAN: Luis Manuel Mobley Jr. is a 61 y.o. 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 now day + 18 (day 0 is 10/22) for MUD HSCT. Tolerated stem cell infusion well on 10/22, had some rigors and nausea post- infusion that resolved with medications. Counts remain low. Neutropenic fever on 11/02, cefepime escalated to zosyn, and then todaptomycin and cefepime after 1 day when BCx positive for VRE. TTE on 10/09 with no vegetation. Tunneled line removed 11/05. Plan for total of 2 weeks of daptomycin from 1st neg BCx until 11/17, and continue cefepime and fluconazole until ANC >500. CT A/P on 11/03 w contrast did not show abdominal infection but did show esophagitis as well as GGO in lingula, which was not observed in repeat CXR. Patient's high ostomy output (2-3L per day) initially improved with scheduled imodium. Lovenox stopped on 11/02 due to heme positive stool and severe mucositis, restarted on 11/07. For mucositis, on bmx, viscous lidocaine, morphine scheduled (dilaudid causes nausea). Started TPN on 10/31 (day +9). Transitioned PO medication to IV as able. Briefly on Tele when unable to take flecainide and mtop. For his bilateral feet neuropathy, will continue gabapentin to 200mg TID as tolerated Summary Plan: - no abx changes for fever overnight, f/u BCx 11/09 - C. Diff surveillance 11/09 - f/u CK on 11/11 - plan for dapto until 11/17 - continue cefepim and fluconzaole until ANC > 500 - no auto electrolyte repletion prn b/c on TPN - continue IV tac 0.5mg bid - monitor ostomy output - continue zarxio from day +7 to when ANC > 1500 - monitor I/O and daily weights - tacrolimus level Thursday and - f/u Thursday EBV every 2 weeks ?? Plan: #VRE bacteremia #Neutropenic fever - likely from gut translocation from mucositis - ID signed off - abx: - cefepime 10/19 - 11/02, 11/03 - p - zosyn 11/02 - daptomycin 11/02 - 11/17 - BCx 11/03: 1/2 Corynebacterium species (likely contaminant) - BCx 11/05 NGTD - OLEKSANDR 11/06 no vegetation #STACIE, pre-renal, improving - pre-renal, noted on 10/27 - s/p 1L Bolus on 10/27 and 10/28, encourage imodium to thicken ostomy output - mIVF (10/29 -> 11/01) - continue to monitor, on TPN so no IVF #AML #MUD HSCT Day (-7): Fludarabine: Day (-6): Fludarabine, Busulfan, Rabbit ATG: Day (-5): Fludarabine, Busulfan, Rabbit ATG: Day (-4): Fludarabine, Busulfan, Rabbit ATG: Day (-3): Fludarabine, Busulfan: Day (0): Stem Cell Infusion: Day (+1): metHOTREXate: Day (+3): metHOTREXate: Day (+6): metHOTREXate: Day (+11): metHOTREXate: General - q4h vitals - strict Is/Os 2x daily - weigh patient 2x daily, notify provider if weight increases by 1kg or more in 12 hour period ?- lasix 20mg IV prn weight gain >1 kg above admission baseline ?- lasix 20mg IV for weight gain 1 kg over 12 hours or input exceeding output by greater than 1,000 ml/12h - neutropenic precautions - incentive spirometry q2h while awake - activity as tolerated - electrolyte replacement - not checking CMV b/c both recipient and donor are CMV negative - check EBV every 14 days until day +100 (01/24/22) Chemotherapy/Support - Busulfan 204mg??day (-6) to day (-3) -??Fludarabine??61??mg 102ml infusion once over 30 minutes day -7 Then every 24 hours at 0900 for 4 doses day (-6) to day (-3) - Rabbit ATG??124.8mg over 10 hours day (-6), 166.4mg on day (-5) 208??on day (-4).?? - Day 0 stem cell infusion. Premedicate with acetaminophen 650mg, diphenhydramine 50mg) - Methotrexate??10mg??day (+1), day (+3), day (+6), day (+11). Hold for serum creatinine >2, bilirubin >5, fluid accumulation (large effusion or ascites), severe mucositis if potential need for intubation. - filgrastim??600mcg qd starting day (+7) until ANC >1500 ?? Laboratory Monitoring - weekly CMV PCR starting day +10, then weekly thereafter - IgG every 2 weeks starting day +1 to day +100 - U/A s/ reflex culture on admission, then daily on days -2, -1, 0? Transfusion parameters - Hgb <??7 - PLT <10, or if febrile??or bleeding??<20 - keep active T&S once hgb <8 ?? Prophylaxis Seizure ppx ?-phenytoin 300 day (-6) through (-1) - GI ppx ?- pantoprazole 40mg qd - mucositis ppx ?- supersaturated calcium phosphate oral solution 30ml 4x daily starting on admission until resolution of mucositis and ANC ?>500 - infection ppx ?- fluconazole 400mg qd starting day (0) ?- levofloxacin 750mg qd starting day (0) until ANC >500, changed tocefepime due to fever on 10/19 ?- acyclovir 800mg bid starting day (-7) ?- bactrim DS 1 tablet daily from day (-7) through day (-2) ?- bactrim DS 1 tablet MWF starting day (+30) - GVHD ppx?-??Tacrolimus??0.7mg IV bid?? - Started day (-2),?target 5-10 trough - VOD ppx ?- lovenox 40mg qd day (-7) through (+30) per Dr. Modi's note, he should continue lovenox 100mg qd until plt apx <40 then switch to VOD ppx dose. ?- ursodiol 300mg qAM??&??qPM day (-7) through day (+30) Hydration - NaCl 0.9% continuous??150ml/hr x??day (-6) ??Through (-3) ?? Pain/Nausea/Appetite - avoid acetaminophen through??day??(-3) - avoid steroid antiemetics - palonosetron 0.25mg day (-6) - aprepitant 130mg day (-6) prior to??busulfan - lorazepam 0.5mg IV q4h prn nausea, anxiety - ondansetron??8mg q8h prn nausea, vomiting beginning day (-3) - prochlorperazine 10mg IV q6h prn nausea, vomiting - use ondansetron >??prochlorperazine or promethazine >??lorazepam >??metoclopramide - olanzapine 5mg qhs starting day (-3) for 5 doses?? - morphine scheduled ?? #Fever, neutropenic - 102.9 10/19 - 100.8 11/02 - CXR benign - C. Diff negative - UA unremarkable - BCx 10/20 negative - BCx 11/02 pending - Zosyn 11/02 - cefepime 10/19 - 11/02, 11/03 - p - vanc 10/20 - 10/22 - daptomycin 11/02 - p #Paroxysmal Afib - Continue home metoprolol, flecainide ?? #Hx of provoked PE in Apr 2021 - On lovenox 100mg qd (held prior to central line placement) - Continue until plt reach approximately 40 followed by switch to prophylactic dosing - may not need upon discharge b/c s/p 3 months of AC ?? #Hx of C diff colitis - Continue home PO vancomycin as tolerated - Ostomy care - C. Diff negative 10/28 #Bilateral Feet tingling - pt reports having baseline bilateral feet tingling that was noted to be worsened on on 10/21 (2 daysafter completing 5 days of fludarabine), strength intact, no loss of sensation - start gabapentin 100mg TID (10/21 - 10/23), 200mg TID (10/23 - p) #GERD - takes protonix at home - current regimen: protonix bid, carafate, tums, #Pancytopenia 2/2 to chemo and disease - continue to monitor, transfuse as needed for support #Routine DVT PPx: lovenox 40mg Diet: Neutropenic (BMT) diet Dispo: [place] CODE STATUS: Attempt Cardiopulmonary Resuscitation - Inpatient Stacy Marin MD PGY1 Internal Medicine 11/09/2021 Heme/Onc/BMT Team A Pager #[phone] Associated attestation - Renay Ponce MD - 11/09/2021 4:44 PM EDT HEMATOLOGY STAFF ADDENDUM I have independently interviewed and examined this patient and have personally reviewed the relevantclinical, laboratory and radiological data with the housestaff on rounds. Please refer to the comprehensive progress note above, with which I concur. I have reviewed and endorse the plan as outlined and have made any additions/corrections below. This patient meets criteria for inpatient level of care based on the above medical complexity. Temp: [36.6 ??C (97.9 ??F)-37.4 ??C (99.3 ??F)] Wt at admit wt; I/Os: Net +800ml/24hr. Stooll out put: 875ml . Decreased imodium to bid A/P Luis Manuel Mobley . 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 Pretransplant course marked by dev't of C difficile colitis with toxic megacolon, s/p [id number]-nqvtvfugh, with ostomy, then dev't of 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 Day +18 today. He does have bloody mucositis. Will transfuse platelets (13 this am). Spiked fever. Fever work up in progress. Consider switch from cefepime to meropenem for better gut mitzy coverage. Suspicion for gut transposition given the extent of his mucositis. # Severe mucositis - on morphine prn. Offered SWATCHER, but patient declined. Happy with current regimen. - Most meds switched to IV. - TPN; continue supportive measures. # ID: Neutropenic fever: Afebrile since 11/04 VRE bacteremia : noted on Bl Cx from 11/02; Rpt Cx on 11/03 growing GPC and Corynebacterium. ECHO - no vegetations. - On cefepime, daptomycin per ID. - On Acyclovir and fluconazole ppx ; On oral Vanc for C. Diff ppx # Pancytopenia - 2ry to chemo. - on Zarxio and prn transfusions. # GVHD ppx - On Tacrolimus 0.7mg IV BID . T ac level 11/04 - 7.8. # VOD ppx - on Ursodiol ; D/C lovenox for increased oral bleeding from mucositis # GI , Ostomy - C. Diff neg. On prn imodium for increased out put I reviewed his situation and our plans with the team, RN and pt on rounds today. Central Venous Access Statement of Need Tunneled catheter - clean dry intact site Can the central IV access be removed? 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 OUTCOME EVALUATION NOTE: OUTCOME SUMMARY: Afebrile, VSS on RA. Continues with 3-5/10 mucositis pain; pierce. Morphine administered q4h with good effect. PRN Zofran given x1 before pills. Electrolytes replaced, cefepime administered per OCT. 1u platelets given for PLTs 7, recheck 19. TPN continued @120mL/hr. Lovenox discontinued. Stool and urine heme positive. Resting between care. PLAN MOVING FORWARD: TPN IV cefepime and daptomycin for bacteremia Pre-medicate for pain and nausea for po medications CHG line only Ostomy care, monitor output INDIVIDUALIZED FALL PREVENTION INTERVENTIONS: Patient-specific fall risk factors per assessment: [current deficits]: High fall risk d/t IV therapy, secondary diagnosis, generalized weakness Assistance [level of assistance required for transfers and ambulation]: IND (BA refusal) Supervision [direct monitoring required during toileting and ADLs]: IND Surveillance [continuous indirect monitoring]: Masimo, bed alarm refused, room near unit station, call light within reach, purposeful hourly founding Patient-specific fall prevention interventions for sensory deficits provided, if applicable: CPG GOAL OUTCOME EVALUATION: Khloe Richardson MD - 11/08/2021 9:51 AM EDT HEMATOLOGY STAFF ADDENDUM I have independently interviewed and examined this patient and have personally reviewed the relevantclinical, laboratory and radiological data with the housestaff on rounds. Please refer to the comprehensive progress note above, with which I concur. I have reviewed and endorse the plan as outlined and have made any additions/corrections below. This patient meets criteria for inpatient level of care based on the above medical complexity. Temp: [36.6 ??C (97.9 ??F)-37.4 ??C (99.3 ??F)] Wt at admit wt; I/Os: Net +800ml/24hr. Stooll out put: 875ml . Decreased imodium to bid A/P Luis Manuel Mobley Jr.??is a 61 YOM with ??high-risk??(FLT3+)??AML??adm???d on 10/15 for GAZ-Qnag-LJG via Flu/Bu/ATG regimen. Pretransplant course marked by dev't of C difficile colitis with toxic megacolon, s/p ecm-oirgz-nwtmrhmpy, with ostomy, then dev't of 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 ?? Day +17 today. Continues to be active ! # Severe mucositis - on morphine prn. - Most meds switched to IV. - TPN; continue supportive measures. # ID: Neutropenic fever: Afebrile since 11/04 VRE bacteremia : noted on Bl Cx from 11/02; Rpt Cx on 11/03 growing GPC and Corynebacterium. ECHO - no vegetations. - On cefepime, daptomycin per ID. - On Acyclovir and fluconazole ppx??; On oral Vanc for C. Diff ppx? # Pancytopenia - 2ry to chemo. - on Zarxio?and prn transfusions.? # GVHD ppx??- On Tacrolimus 0.7mg IV BID . T ac level 11/04 - 7.8. # VOD ppx - on Ursodiol ; D/C lovenox for increased oral bleeding from mucositis ? # GI , Ostomy - C. Diff neg. On prn imodium for increased out put I reviewed his situation and our plans with the team, RN and pt on rounds today. Central Venous Access Statement of Need Tunneled catheter - clean dry intact site Can the central IV access be removed? [ Yes [x ] No [ ] N/A If no, reason for central access: [X] Stem cell transplant patient or AML induction Khloe Richardson MD Hematology Staff physician Pager: [phone] 11/08/21 Stacy Marin MD - 11/08/2021 7:52 AM EDT Images from the original note were not included. Inpatient Hematology/Oncology/SCT Progress Note Patient info: Name: Luis Manuel Mobley Jr. : 1960 PCP: LEISA Munguia PCP phone number: [phone] Date of Admission: 10/15/2021 ( Hospital Day 24 days ) Service: Hem/Onc Team A pg [id number] (09/03) Responsible Attending:Khloe Richardson MD ID: Luis Manuel Mobley Jr. is a 61 y.o. Male with hx of paroxysmal Afib, c diff colitis c/b toxic megacolon s/p bowel resection and colostomy in may 2021, FLT3+ AML with positive [employer] disease??s/p CR w/ 7+3+Midostaurin c/b relapse tx w ventoclax + gilteritinib (held since 10/08) most with pre-transplant BM and LP showing FELY, admitted for MUD allo HSCT.Today is day +17 (day 0 is 38), getting daptomycin and cefepime for VRE bacteremia. Baseline weight: 107.1kg Donor: MUD ABO: Donor O negative, recipient O positive HLA: 05/26 ID status: Donor and recipient both CMV negative Conditioning regimen: fludarabine, busulfan GVHD regimen: Rabbit ATG, methotrexate, tacrolimus 24 Hour Events: - Yesterday, intermittently refused scheduled morphine (got x 3, refused x 4), restarted lovenox - Overnight, took morphine x 1, rash noted from knee down, replaced K - This AM, refused morphine b/c denies pain when not eating, denies puritis or pain on bilateral legrash, reports drank some milk shake yesterday - VSS - Weight 104.1kg -> 104.4kg - In/Out: +829ml (po 120, stool 875) - Platelet 7 -> ordered a unit - Mg 0.72, repleted - BCx 11/06: NGTD Vitals: Last value Range last 24 hrs Temperature Temp: 37.2 ??C (99 ??F) Temp: [36.6 ??C (97.9 ??F)-37.4 ??C (99.3 ??F)] Heart Rate Heart Rate: 80 Heart Rate: [80] Blood Pressure BP: 142/87 BP: (125-148)/(67-87) Respiratory Rate Resp: 18 Resp: [16-18] SpO2 SpO2: 98 % SpO2: [92 %-99 %] Intake/Output Summary (Last 24 hours) at 11/08/2021 0752 Last data filed at 11/08/2021 0454 Gross per 24 hour Intake 4229 ml Output 3400 ml Net 829 ml Patient Vitals for the past 168 hrs: Weight 11/08/21 0100 104.4 kg (230 lb 2.6 oz) 11/07/21 1545 104.3 kg (229 lb 15 oz) 11/07/21 0334 104.1 kg (229 lb 8 oz) 11/06/21 1617 104.6 kg (230 lb 9.6 oz) 11/06/21 0356 104 kg (229 lb 4.5 oz) 11/05/21 1559 104.7 kg (230 lb 13.2 oz) 11/05/21 0320 103.3 kg (227 lb 11.8 oz) 11/04/21 1719 103.3 kg (227 lb 11.8 oz) 11/04/21 0410 102.5 kg (225 lb 15.5 oz) 11/03/21 1520 102.8 kg (226 lb 10.1 oz) 11/03/21 0400 102.3 kg (225 lb 8.5 oz) 11/02/21 1618 103.1 kg (227 lb 4.7 oz) 11/02/21 0353 103.1 kg (227 lb 4.7 oz) 11/01/21 1705 102.9 kg (226 lb 13.7 oz) Exam: GENERAL:?appeared in no acute distress, awake and watching TV MOUTH: blood noted at posterior oropharynx, diffuse inflammation and blood in oral mucosa CARDIOVASCULAR:??rrr no mrg PULMONARY:??CTAB on RA, no increased wob GASTROINTESTINAL:??Abdomen soft nontender to palpation w +BS. Colostomy with brown watery stool in place. SKIN:??No rashes, bruises or petechiae. ?? EXT: no Edema at ankles NEUROLOGICAL:??Alert and oriented to person, place and time. No focal deficits Medications: Scheduled Meds: ??? enoxaparin 40 mg Subcutaneous Nightly ??? tacrolimus 0.5 mg Intravenous 2 times per day ??? loperamide 2 mg Oral Q6H ??? morphine 4 mg Intravenous Q4H ??? DAPTOmycin 10 mg/kg/dose (Adjusted) Intravenous Q24H ??? ceFEPime 2 g Intravenous Q8H ??? metoprolol succinate XL 50 mg Oral Daily ??? ursodiol 300 mg Oral Daily with breakfast ??? ursodiol 600 mg Oral Daily with dinner ??? pantoprazole 40 mg Intravenous BID ??? acyclovir 250 mg/m2/dose (Anton) Intravenous Q12H ??? fluconazole 400 mg Intravenous Q24H ? ? lhcwjqcdp-yosjcnsha-li-mag-sim 5 mL Oral 4 Times Daily AC & HS ??? gabapentin 200 mg Oral TID ??? sodium chloride 0.9 % (flush) 5 mL Intravenous BID ??? vancomycin 125 mg Oral BID ??? flecainide 50 mg Oral BID ??? supersaturated calcium phosphate 30 mL Oral 4 Times Daily ??? [START ON 11/21/2021] sulfamethoxazole-trimethoprim DS 1 tablet Oral Daily ??? filgrastim-sndz 600 mcg Subcutaneous Daily Continuous Infusions: ??? TPN Adult 120 mL/hr at 11/07/21 1828 PRN Meds:.lidocaine, sodium chloride 0.9 % (flush), magnesium sulfate, magnesium sulfate, potassium chloride, potassium chloride ER, potassium chloride ER, acetaminophen, camphor-menthoL, loperamide, alum-mag hydroxide-simeth, calcium carbonate, sucralfate, furosemide, furosemide, sodium chloride 0.9 % (flush), lidocaine, LORazepam, ondansetron, prochlorperazine, heparin, porcine, sodium chloride 0.9% (flush) Labs: Recent Labs 11/08/21 0125 11/07/21 0340 11/06/21 1605 11/06/21 0315 WBC 0.0* 0.0* -- 0.0* HGB 7.4* 7.8* -- 7.4* HCT 21.0* 21.5* -- 20.6* PLATELET 7* 14* 19* 9* ANC 0 Recent Labs 11/08/21 0125 11/07/21 0340 11/06/21 0315 NA 141 140 143 K 3.9 4.1 3.6 CL 107 104 108* CO2 23 24 23 BUN 29* 32* 34* CREATININE 0.95 1.07 1.00 Recent Labs 11/08/21 0125 11/07/21 0340 11/06/21 0315 CALCIUM 7.8* 8.6 8.6 MAGNESIUM 0.72 0.90 0.90 PHOS 3.0 3.0 2.8 Recent Labs 11/07/21 0340 11/02/21 0350 AST 15 16 ALT 27 41 ALKPHOS 123 121 BILITOT 0.5 0.4 BILIDIR 0.2 0.2 No results for input(s): INR, PT, PTT in the last 72 hours. Microbiology: BCx 11/05: NGTD BCx 11/03: 1/2 Corynebacterium species, likely contaminant BCx 11/02: VRE UA 11/03: unremarakble BCx 10/20: NGTD UA 10/20: does not look infectious Microbiology Results (Last 30 days) Procedure Component Value Units Date/Time Blood culture [[id number]] Collected: 11/06/21 1224 Lab Status: Preliminary result Specimen: Blood from Hand, Left Updated: 11/07/21 1502 Blood Culture No growth at 1 day. Blood culture [[id number]] Collected: 11/06/21 1218 Lab Status: Preliminary result Specimen: Blood from Antecubital, Left Updated: 11/07/21 1502 Blood Culture No growth at 1 day. Blood culture [[id number]] Collected: 11/05/21 0935 Lab Status: Preliminary result Specimen: Blood from Hand, Left Updated: 11/07/21 1502 Blood Culture No growth at 2 days. Blood culture [[id number]] Collected: 11/05/21 0928 Lab Status: Preliminary result Specimen: Blood from Arm, Left Updated: 11/07/21 1502 Blood Culture No growth at 2 days. Blood culture [[id number]] Collected: 11/03/21 0408 Lab Status: Final result Specimen: Blood Updated: 11/08/21 0701 Blood Culture No growth at 5 days. Blood culture [[id number]] (Abnormal) Collected: 11/03/21 0356 Lab Status: Final result Specimen: Blood Updated: 11/08/21 0706 Blood Culture -- Corynebacterium species isolated : Interpretation of the importance of skin mitzy such as Coagulase Negative Staph, Viridans Strep, Corynebacteria and other Gram Positive organisms from a single Blood Culture set requires clinical correlation. Gram Stain Aerobic -- Note: This is a corrected report Growth detected in aerobic bottle. Gram Positive Rods seen Previously reported as: Gram Positive Cocci seen Results called to and read back by Denise Madera RN at 11/06/21 10:57:10 Blood culture [[id number]] (Abnormal) (Susceptibility) Collected: 11/02/21 1018 Lab Status: Final result Specimen: Blood Updated: 11/05/21 1124 Blood Culture -- Enterococcus faecium isolated * VRE, Vancomycin Resistance * Isolate saved. If future testing is required, contact the Microbiology Industrial Organizational Psychologist. Gram Stain Aerobic -- Growth detected in aerobic bottle. Gram Positive Cocci in pairs seen Gram Stain Anaerobic -- Growth detected in anaerobic bottle. Gram Positive Cocci in pairs seen Results called to and read back by Radha Marmolejo 11/03/21 02:42:51 VMartin Susceptibility Enterococcus faecium MICROSCAN METHOD Ampicillin Resistant Erythromycin Resistant Gentamicin 500 Sensitive Linezolid Sensitive Penicillin Resistant Vancomycin Resistant Linear View Blood culture [[id number]] (Abnormal) Collected: 11/02/21 1018 Lab Status: Final result Specimen: Blood Updated: 11/05/21 1125 Blood Culture -- Enterococcus faecium isolated * VRE, Vancomycin Resistance * Susceptibilities previously reported Gram Stain Anaerobic -- Growth detected in anaerobic bottle. Gram Positive Cocci in pairs seen Gram Stain Aerobic -- Growth detected in aerobic bottle. Gram Positive Cocci in pairs seen C. Difficile Screen [[id number]] Collected: 10/28/21 1207 Lab Status: Final result Specimen: Stool Updated: 10/28/21 1334 C Diff Screen Negative Comment: Ag/Tox Neg C. diff?? Negative Clostridium difficile is not present in the specimen. If patient is having diarrhea suspected to be from an infectious cause, then Soap & Water Contact Precautions are still required. Blood culture [[id number]] Collected: 10/20/21 173 Lab Status: Final result Specimen: Blood Updated: 10/25/21 2301 Blood Culture No growth at 5 days. Blood culture [[id number]] Collected: 10/20/21 1732 Lab Status: Final result Specimen: Blood Updated: 10/25/21 2301 Blood Culture No growth at 5 days. Blood culture [[id number]] Collected: 10/19/21 1139 Lab Status: Final result Specimen: Blood from Antecubital, Left Updated: 10/24/21 1501 Blood Culture No growth at 5 days. Blood culture [[id number]] (Abnormal) Collected: 10/19/21 1133 Lab Status: Final result Specimen: Blood from Hand, Right Updated: 10/25/21 0910 Blood Culture -- Coagulase negative Staphylococcus species detected by PCR Interpretation of the importance of skin mitzy such as Coagulase Negative Staph, Viridans Strep, Corynebacteria and other Gram Positive organisms from a single Blood Culture set requires clinical correlation. Gram Stain Aerobic -- Growth detected in aerobic bottle. Gram Positive Cocci in clusters seen C. Difficile Screen [[id number]] Collected: 10/19/21 1020 Lab Status: Final result Specimen: Stool Updated: 10/19/21 1607 C Diff Screen Negative Comment: Ag/Tox Neg C. diff?? Negative Clostridium difficile is not present in the specimen. If patient is having diarrhea suspected to be from an infectious cause, then Soap & Water Contact Precautions are still required. COVID-19 PCR [[id number]] Collected: 10/19/21 0405 Lab Status: Final result Specimen: Nasopharyngeal Swab Updated: 10/19/21 1834 SARS-CoV-2 RNA Not Detected Comment: This result should be interpreted in combination with the clinical observations, patient history and epidemiological information in making a final diagnosis. For testing of asymptomatic individuals, assay performance characteristics and clinical utility have not been evaluated. Testing for SARS-CoV-2 (Severe acute respiratory syndrome coronavirus 2, formerly known as 2019 novel coronavirus or 2019-nCoV) to aid in the diagnosis of COVID-19 is performed using the [employer] m SARS-CoV-2 Assay as authorized by the FDA Emergency Use Authorization (EUA). This EUA assay is intended for In-vitro Diagnostic (IVD) use with respiratory specimens such as nasopharyngeal swabs collected from individuals during the acute phase of infection. This assay is performed based on the instructions for use provided by [employer] and additional guidance provided by CDC and FDA. Testing is performed in the [facility] within the Department of Pathology and Laboratory Medicine at [facility], certified under the Clinical Laboratory Improvement Amendments of 1988 (CLIA), 42 U.S.C. 263a, to perform high complexity tests. Assay performance has been verified according to clinical laboratory regulatory requirements for use with specimens collected from individuals suspected of COVID-19. Test results are provided above. A result of Not Detected indicates that the viral RNA target is not present above the limit of detection, but does not preclude SARS-CoV-2 infection. False negative results may occur if a specimen is improperly collected, transported or handled; if amplification inhibitors are present; or if inadequate numbers of viral particles are present in the specimen. When a diagnostic test is negative, the possibility of a false negative result should be considered in the context of a patient's recent exposures and the presence of clinical signs and symptoms consistent with COVID-19. A result of Detected indicates that RNA from SARS-CoV-2 was detected and the patient is infected. As required or requested by public health authorities, positive specimens may be sent for additional testing. Positive and negative predictive values for this test are highly dependent on disease prevalence. A result of Invalid indicates that neither the viral RNA targets nor the internal control target was detected. An invalid result suggests the presence of inhibitors. Recollection and re-testing is recommended in the case of an invalid result. CDC COVID-19 criteria for testing on human specimens and clinical management guidance information are available at the CDC Coronavirus Disease 2019 (COVID-19) webpage under Information for Healthcare Professionals (https://www.cdc.gov/coronavirus/2019-ncov/hcp/index.html) Additional information about this and other EUA tests can be found in provider and patient fact sheets at the following FDA website: https://www.fda.gov/medical-devices/ghscberlegr-fdhucor-3874-bbdza-23-nanqnbzfn- pcw-dclvohclfaxudu-dcvryxu-devices/dvlpb-uxsooxpnvpz-blst SARS-Cov-2 RNA Source ULTRASOUND SPEC Swab COVID-19 PCR [[id number]] Collected: 10/15/212032 Lab Status: Final result Specimen: Nasopharyngeal Swab Updated: 10/16/21 0004 SARS-CoV-2 RNA PCR Not Detected Comment: This result should be interpreted in combination with the clinical observations, patient history and epidemiological information. For testing of asymptomatic individuals, assay performance characteristics and clinical utility have not been evaluated. Testing for SARS-CoV-2 (Severe acute respiratory syndrome coronavirus 2, formerly known as 2019 novel coronavirus or 2019-nCoV) to aid in the diagnosis of COVID-19 is performed using the [employer] COVID-19 Direct Assay by [employer] as authorized by the FDA issued Emergency Use Authorization (EUA). This assay is intended for In-vitro Diagnostic (IVD) use with nasopharyngeal swabs collected from individuals meeting the CDC criteria for testing. The assay is performed based on the instructions for use and additional guidance provided by the FDA. Testing is performed in the Microbiology Laboratory within the Department of Pathology and Laboratory Medicine at [facility], certified under the Clinical Laboratory Improvement Amendments of 1988 (CLIA), 42 U.S.C. section 263a, to perform high complexity tests. Assay performance has been verified according to clinical laboratory regulatory requirements. Test results are provided above. A result of Not Detected indicates that the viral RNA target is not present but does not preclude SARS-CoV-2 infection. False negative results may occur if a specimen is improperly collected, transported or handled; if amplification inhibitors are present; or if inadequate numbers of viral particles are present in the specimen. A result of Detected suggests a current or recent infection and the patient is presumed to be infected. Positive and negative predictive values for this test are highly dependent on disease prevalence. A result of Invalid indicates the inability to conclusively determine the presence or absence of SARS-CoV-2 RNA in the sample which can be due to a variety of factors. Recollection is recommended in the case of an invalid result. CDC COVID-19 criteria for testing on human specimens and clinical management guidance information are available at the CDC Coronavirus Disease 2019 (COVID-19) webpage under Information for Healthcare Professionals (https://www.cdc.gov/coronavirus/2019-ncov/hcp/index.html). Additional information about this and other EUA tests can be found in provider and patient fact sheets at the following FDA website: https://www.fda.gov/medical-devices/jelbcjahygl-vdysuxg-5255-ojlhx-79-pyzmhrhxy- tiz-mszoztqaesocum-tqtjdds-devices/cjuum-cpgbiarlvbl-vvse SARS-CoV-2 Source ULTRASOUND SPEC Swab Pertinent radiology/diagnostic studies: CT A/P w contrast 11/03 ?? IMPRESSION ?? 1. Ill defined opacities in lingula may represent pneumonia. Consider follow-up chest x-ray if indicated. 2. No abdominal or pelvic abscess seen. 3. Hiatal hernia with fat stranding around a thick walled and dilated distal esophagus. Finding may represent esophagitis. 4. Resolution of splenomegaly. 5. No enlarged abdominal and pelvic lymph nodes. 6. No abdominal or pelvic ascites. CXR 11/04 ?? IMPRESSION Radiographically the left basilar airspace opacity seen on 11/02/2021 has resolved and findings are now similar compared to a radiograph from 10/19/2021. However, it is uncertain to which extent the mild opacities seen on CT 11/03/2021 still persist or have resolved (due to difference in technique). ?? Within the limitation of single frontal view the change in positioning of the left subclavian central venous catheter in comparison to 10/19/2021 is due to the fact that the tip has flipped into the azygos vein (unchanged to 11/02/2021). Please correlate clinically if functionalityof this catheter remains adequate. TTE 11/06 1. There are no vegetations seen on this study, if clinical suspicion for endocarditis remains, consider OLEKSANDR for further evaluation 2. Left ventricle is normal in size. LVEF is estimated at 64% by biplane. There are no wall motion abnormalities. 3. Right ventricle is milldly dilated with normal systolic function. 4. There is no pericardial effusion. ?? ASSESSMENT/PLAN: Luis Manuel Mobley Jr. is a 61 y.o. 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 now day + 16 (day 0 is 10/22) for MUD HSCT. Tolerated stem cell infusion well on 10/22, had some rigors and nausea post- infusion that resolved with medications. Counts remain low. Neutropenic fever on 11/02, cefepime escalated to zosyn, and then todaptomycin and cefepime after 1 day when BCx positive for VRE. TTE on 10/09 with no vegetation. Tunneled line removed 11/05. Plan for total of 2 weeks of daptomycin from 1st neg BCx until 11/17, and continue cefepime and fluconazole until ANC >500. CT A/P on 11/03 w contrast did not show abdominal infection but did show esophagitis as well as GGO in lingula, which was not observed in repeat CXR. Patient's high ostomy output (2-3L per day) initially improved with scheduled imodium. Lovenox stopped on 11/02 due to heme positive stool and severe mucositis, restarted on 11/07. For mucositis, on bmx, viscous lidocaine, morphine scheduled (dilaudid causes nausea). Started TPN on 10/31. Transitioned PO medication to IV as able. Briefly on Tele when unable to take flecainide and mtop. For his bilateral feet neuropathy, will continue gabapentin to 200mg TID as tolerated Summary Plan: - decreased scheduled imodium to TID - f/u CK on 11/11 - plan for dapto until 11/17 - continue cefepim and fluconzaole until ANC > 500 - no auto electrolyte repletion prn b/c on TPN - continue IV tac 0.5mg bid - monitor ostomy output - continue zarxio from day +7 to when ANC > 1500 - monitor I/O and daily weights - tacrolimus level Thursday and - f/u weekly thursday CMV - f/u Thursday EBV every 2 weeks ?? Plan: #VRE bacteremia #Neutropenic fever - likely from gut translocation from mucositis - ID signed off - abx: - cefepime 10/19 - 11/02, 11/03 - p - zosyn 11/02 - daptomycin 11/02 - 11/17 - BCx 11/03: 1 Corynebacterium species (likely contaminant) - BCx 11/05 NGTD - OLEKSANDR 11/06 no vegetation #STACIE, pre-renal, improving - pre-renal, noted on 10/27 - s/p 1L Bolus on 10/27 and 10/28, encourage imodium to thicken ostomy output - mIVF (10/29 -> 11/01) - continue to monitor, on TPN so no IVF #AML #MUD HSCT Day (-7): Fludarabine: Day (-6): Fludarabine, Busulfan, Rabbit ATG: Day (-5): Fludarabine, Busulfan, Rabbit ATG: Day (-4): Fludarabine, Busulfan, Rabbit ATG: Day (-3): Fludarabine, Busulfan: Day (0): Stem Cell Infusion: Day (+1): metHOTREXate: Day (+3): metHOTREXate: Day (+6): metHOTREXate: Day (+11): metHOTREXate: General - q4h vitals - strict Is/Os 2x daily - weigh patient 2x daily, notify provider if weight increases by 1kg or more in 12 hour period ?- lasix 20mg IV prn weight gain >1 kg above admission baseline ?- lasix 20mg IV for weight gain 1 kg over 12 hours or input exceeding output by greater than 1,000 ml/12h - neutropenic precautions - incentive spirometry q2h while awake - activity as tolerated - electrolyte replacement Chemotherapy/Support - Busulfan 204mg??day (-6) to day (-3) -??Fludarabine??61??mg 102ml infusion once over 30 minutes day -7 Then every 24 hours at 0900 for 4 doses day (-6) to day (-3) - Rabbit ATG??124.8mg over 10 hours day (-6), 166.4mg on day (-5) 208??on day (-4).?? - Day 0 stem cell infusion. Premedicate with acetaminophen 650mg, diphenhydramine 50mg) - Methotrexate??10mg??day (+1), day (+3), day (+6), day (+11). Hold for serum creatinine >2, bilirubin >5, fluid accumulation (large effusion or ascites), severe mucositis if potential need for intubation. - filgrastim??600mcg qd starting day (+7) until ANC >1500 ?? Laboratory Monitoring - weekly CMV PCR starting day +10, then weekly thereafter - IgG every 2 weeks starting day +1 to day +100 - U/A s/ reflex culture on admission, then daily on days -2, -1, 0? Transfusion parameters - Hgb <??7 - PLT <10, or if febrile??or bleeding??<20 - keep active T&S once hgb <8 ?? Prophylaxis Seizure ppx ?-phenytoin 300 day (-6) through (-1) - GI ppx ?- pantoprazole 40mg qd - mucositis ppx ?- supersaturated calcium phosphate oral solution 30ml 4x daily starting on admission until resolution of mucositis and ANC ?>500 - infection ppx ?- fluconazole 400mg qd starting day (0) ?- levofloxacin 750mg qd starting day (0) until ANC >500, changed tocefepime due to fever on 10/19 ?- acyclovir 800mg bid starting day (-7) ?- bactrim DS 1 tablet daily from day (-7) through day (-2) ?- bactrim DS 1 tablet MWF starting day (+30) - GVHD ppx?-??Tacrolimus??0.7mg IV bid?? - Started day (-2),?target 5-10 trough - VOD ppx ?- lovenox 40mg qd day (-7) through (+30) per Dr. Modi's note, he should continue lovenox 100mg qd until plt apx <40 then switch to VOD ppx dose. ?- ursodiol 300mg qAM??&??qPM day (-7) through day (+30) Hydration - NaCl 0.9% continuous??150ml/hr x??day (-6) ??Through (-3) ?? Pain/Nausea/Appetite - avoid acetaminophen through??day??(-3) - avoid steroid antiemetics - palonosetron 0.25mg day (-6) - aprepitant 130mg day (-6) prior to??busulfan - lorazepam 0.5mg IV q4h prn nausea, anxiety - ondansetron??8mg q8h prn nausea, vomiting beginning day (-3) - prochlorperazine 10mg IV q6h prn nausea, vomiting - use ondansetron >??prochlorperazine or promethazine >??lorazepam >??metoclopramide - olanzapine 5mg qhs starting day (-3) for 5 doses?? - morphine scheduled ?? #Fever, neutropenic - 102.9 10/19 - 100.8 11/02 - CXR benign - C. Diff negative - UA unremarkable - BCx 10/20 negative - BCx 11/02 pending - Zosyn 11/02 - cefepime 10/19 - 11/02, 11/03 - p - vanc 10/20 - 10/22 - daptomycin 11/02 - p #Paroxysmal Afib - Continue home metoprolol, flecainide ?? #Hx of provoked PE in Apr 2021 - On lovenox 100mg qd (held prior to central line placement) - Continue until plt reach approximately 40 followed by switch to prophylactic dosing - may not need upon discharge b/c s/p 3 months of AC ?? #Hx of C diff colitis - Continue home PO vancomycin as tolerated - Ostomy care #Bilateral Feet tingling - pt reports having baseline bilateral feet tingling that was noted to be worsened on on 10/21 (2 daysafter completing 5 days of fludarabine), strength intact, no loss of sensation - start gabapentin 100mg TID (10/21 - 10/23), 200mg TID (10/23 - p) #GERD - takes protonix at home - current regimen: protonix bid, carafate, tums, #Pancytopenia 2/2 to chemo and disease - continue to monitor, transfuse as needed for support #Routine DVT PPx: lovenox 40mg Diet: Neutropenic (BMT) diet Dispo: [place] CODE STATUS: Attempt Cardiopulmonary Resuscitation - Inpatient Stacy Marin MD PGY1 Internal Medicine 11/08/2021 Heme/Onc/BMT Team A Pager #[phone] Claudia Claros, RD - 11/08/2021 7:42 AM EDT Images from the original note were not included. Nutrition Progress Note Luis Manuel Mobley Jr. is a 61 y.o. 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 Reason for intervention: Follow up and TPN Comments: TPN to provide 235g dextrose, 110g protein, and 60g lipid in 2,880mL. 1/2 NS. Increased mag by 4mEq. Adjusted Na for NaCl shortage. Daily BMP with mag and phos please. Weekly LFTs and TG while on TPN. Monitor wt daily I was able to discuss plan with provider Ian Diaz MD Hem/Onc pager #[phone]. Nutrition Support: TPN Medication Recent History (Show up to 3 orders; newest on the left. Changes between the two mostrecent orders are indicated.) Start date and time 11/08/2021 1800 11/07/2021 1800 11/06/2021 1800 TPN Adult [[id number]] TPN Adult [[id number]] TPN Adult [[id number]] Order Status Active Last Dose in Progress Completed Last Admin New Bag at 11/07/2021 182 by Cande Beck RN New Bag at 11/06/2021 180 by Wendie Zapata, SHARON Frequency Continuous (1800) Continuous (1800) Continuous (1800) Additives adult multivitamin 5 mL 5 mL 5 mL adult trace elements Zn-Cu-Mn-Se (Tralement) 0.5 mL 0.5 mL 0.5 mL folic acid 400 mcg 400 mcg 400 mcg Vit O4-L4-L5-B5-B6 (B Complex) 1 mL 1 mL 1 mL Electrolytes potassium phosphate 22 mmol 22 mmol 22 mmol potassium chloride 76 mEq 76 mEq 76 mEq sodium chloride 20 mEq 50 mEq 80 mEq sodium acetate 202 mEq 172 mEq 142 mEq calcium gluconate 8 mEq 8 mEq 8 mEq magnesium sulfate 36 mEq 32 mEq 32 mEq Dextrose dextrose 70% 235 g 235 g 206 g Amino Acids amino acid 15% no.5 (ClinisoL) 110 g 110 g 110 g QS Base sterile water 1,427.02 mL 1,435.51 mL 1,517.41 mL Lipid fat emulsion (Intralipid) 30 % 60 g 60 g 50 g Energy Contribution Proteins 440 kcal 440 kcal 440 kcal Dextrose 798.97 kcal 798.97 kcal 700.43 kcal Lipids 600 kcal 600 kcal 501 kcal Total 1,838.97 kcal 1,838.97 kcal 1,641.43 kcal Electrolyte Ion Calculated Amount Sodium 222 mEq 222 mEq 222 mEq Potassium 108.27 mEq 108.27 mEq 108.27 mEq Calcium 8 mEq 8 mEq 8 mEq Magnesium 36 mEq 32 mEq 32 mEq Aluminum -- -- -- Phosphate 25 mmol 25 mmol 24.5 mmol Chloride 96 mEq 126 mEq 156 mEq Acetate 295.13 mEq 265.13 mEq 235.13 mEq Chloride: Acetate Ratio 0.325 0.475 0.665 Trace Elements Copper 0.15 mg 0.15 mg 0.15 mg Manganese 27.5 mcg 27.5 mcg 27.5 mcg Selenium 30 mcg 30 mcg 30 mcg Zinc 1.5 mg 1.5 mg 1.5 mg Other Total Amino Acid 110 g 110 g 110 g Total Amino Acid/kg 1.05 g/kg 1.06 g/kg 1.06 g/kg Glucose Infusion Rate 1.56 mg/kg/min 1.56 mg/kg/min 1.37 mg/kg/min Osmolarity 1,063.78 1,061 1,008.39 Volume 2,880 mL 2,880 mL 2,880 mL Rate 120 mL/hr 120 mL/hr 120 mL/hr Dosing Weight 104.4 kg 104.1 kg 104 kg Infusion Site [facility] Total Multi-vitamins 5 mL 5 mL 5 mL Lab Results Component Value Date NA 141 11/08/2021 K 3.9 11/08/2021 CL 107 11/08/2021 CO2 23 11/08/2021 BUN 29 (H) 11/08/2021 CREATININE 0.95 11/08/2021 ESTGFR 86 11/08/2021 MAGNESIUM 0.72 11/08/2021 CALCIUM 7.8 (L) 11/08/2021 PHOS 3.0 11/08/2021 AST 15 11/07/2021 ALT 27 11/07/2021 ALKPHOS 123 11/07/2021 BILITOT 0.5 11/07/2021 BILIDIR 0.2 11/07/2021 TRIG 171 07/13/2021 HA1C 4.8 07/13/2021 [id number] 1,799 (H) 08/01/2021 SFOLATE 5.6 08/01/2021 IRON [...] sat monitor, IV sites Other Sites: ostomy, R DL PICC, L TL tunneled line, SL mediport Relevant medications: BMX, imodium (not given), protonix, caphosol, prograf, zofran prn Last Bowel Movement: 11/06/21 Intake/Output Summary (Last 24 hours) at 11/08/2021 0742 Last data filed at 11/08/2021 0454 Gross per 24 hour Intake 4229 ml Output 3400 ml Net 829 ml Admit Weight: 107.1 kg Estimated body mass index is 33.32 kg/m?? as calculated from the following: Height as of this encounter: 177 cm (5' 9.69). Weight as of this encounter: 104.4 kg (230 lb 2.6 oz). Anton Body Weight: 74.6 kg Usual Body Weight: 235 lbs per pt Wt Readings from Last 10 Encounters: 11/08/21 104.4 kg (230 lb 2.6 oz) 10/15/21 107.8 kg (237 lb 9.6 oz) 10/04/21 107.2 kg (236 lb 6.4 oz) 09/27/21 109 kg (240 lb 6.4 oz) 09/16/21 105.9 kg (233 lb 6.4 oz) 09/12/21 106.6 kg (235 lb) 09/09/21 102.8 kg (226 lb 9.6 oz) 09/05/21 106.8 kg (235 lb 6.4 oz) 08/26/21 102.8 kg (226 lb 9.6 oz) 08/19/21 100.2 kg (221 lb) Patient Vitals for the past 168 hrs: Weight 11/08/21 0100 104.4 kg (230 lb 2.6 oz) 11/07/21 1545 104.3 kg (229 lb 15 oz) 11/07/21 0334 104.1 kg (229 lb 8 oz) 11/06/21 1617 104.6 kg (230 lb 9.6 oz) 11/06/21 0356 104 kg (229 lb 4.5 oz) 11/05/21 1559 104.7 kg (230 lb 13.2 oz) 11/05/21 0320 103.3 kg (227 lb 11.8 oz) 11/04/21 1719 103.3 kg (227 lb 11.8 oz) 11/04/21 0410 102.5 kg (225 lb 15.5 oz) 11/03/21 1520 102.8 kg (226 lb 10.1 oz) 11/03/21 0400 102.3 kg (225 lb 8.5 oz) 11/02/21 1618 103.1 kg (227 lb 4.7 oz) 11/02/21 0353 103.1 kg (227 lb 4.7 oz) 11/01/21 1705 102.9 kg (226 lb 13.7 oz) Assessment: Estimated needs: Calories: 1865 (25 kcal/kg IBW) Protein: 89-112 grams (1.2-1.5 g/kg IBW) Nutrition Focused Physical Exam (NFPE): Performed on 10/28/21. Subcutaneous fat loss at Orbital region: None present Upper arm region (triceps/biceps): None present Thoracic and lumbar region (ribs, lower back and maxillary line): Not assessed Lean muscle loss to Orthodoxy region (temporalis muscle): None present Clavicle bone region (pectoralis major): None present Dorsal hand (interosseous muscle): None present Shoulder (deltoid): None present Scapular bone region (latissimus dorsi, trapezius muscles): Not assessed Thigh region (quadriceps muscle): None present Posterior calf region (gastrocnemius muscle): None present Fluid accumulation: Not assessed Nutrition intake and intake history/Interview: 11/07: 40mEq of KCl repletion noted yesterday. 11/06: 60mEq of KCl repletion noted yesterday. 11/04: Luis Manuel reported a poor appetite today, not taking solids d/t mucositis and primarily taking in water as fluids, gatorade at bedside. Ileostomy output high, although per pt output is stable. Continue to monitor wt, below reported UBW. Protein-calorie Malnutrition: Not enough data to assess (RAFA Barnes J Parenteral Enteral Nutr. 2011; 36(3): 273-83) Nutrition to continue to follow up while inpatient. Thank you, Claudia Claros RD Pager #[phone] Denise Zapata RN - 11/08/2021 5:48 AM EDT Illness Severity [x] Stable [] Watcher [] Unstable Patient Summary Reason for admission: Day +17 (11/08) of 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 Significant 24 hour events: 11/07 AM: Continues with 1-3/10 mucositis pain; Morphine scheduled Q4 hrs but intermittently refusing. PRN Zofran given x1 before pills. Continues on Cefepime. Telemetry d/c'd. Lovenox restarted. Ambulated in marm[place]jo x1. Tacrolimus level 9.8; dose adjusted accordingly. 11/07 PM: Took morphine x1 overnight, mucositis pain well managed. Red rash noted from knees down- asymptomatic per pt. K replacement started. Baseline Weight: 107.1 kg AM weight: 104.4 kg PM weight: Action List TPN IV cefepime and daptomycin for bacteremia Pre-medicate for pain and nausea for po medications CHG line only Ostomy care, monitor output Cande Beck RN - 11/07/2021 6:37 PM EDT Patient Summary Reason for admission: Day +16 (11/07) of 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 Significant 24 hour events: 11/05 PM: Afebrile, tele monitoring continued - NSR. Endorsing 3/10 mouth/throat pain - premedicated with PRN zofran before pills, able to take all meds. Cefepime and daptomycin administered per OCT, TPN continued. Refusing morphine throughout the night. Pt has bloody mouth sores and intermittent smallbloody nose. 11/07 AM: Continues with 1-4/10 mucositis pain; Morphine scheduled Q4 hrs but patient intermittently refusing. Pt refused BMX throughout the day. PRN Zofran given x1 before pills. Continues on Cefepime.Telemetry d/c'd. Lovenox restarted. Ambulated in marmolejo x1. Will continue to monitor. Baseline Weight: 107.1 kg AM weight: 104.1 kg PM weight: 104.3 kg Action List TPN IV cefepime and daptomycin for bacteremia Pre-medicate for pain and nausea for po medications CHG to line only Ostomy care, monitor output Evelina Martino - 11/07/2021 2:48 PM EDT Therapeutic massage given by VIRGINIA Lassiter. Luis Manuel house,stating That feels very good!. [facility] Team will continue to try and see 2-3x/week. Claudia Claros, RD - 11/07/2021 11:23 AM EDT Images from the original note were not included. Nutrition Progress Note Luis Manuel Mobley Jr. is a 61 y.o. 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 Reason for intervention: Follow up and TPN Comments: TPN to provide 235g dextrose, 110g protein, and 60g lipid in 2,880mL. 1/2 NS. Increased calories. Adjusted Na for NaCl shortage. Daily BMP with mag and phos please. Weekly LFTs and TG while on TPN. Monitor wt daily I was able to discuss plan with provider Ian Diaz MD Hem/Onc pager #[phone]. Nutrition Support: TPN Medication Recent History (Show up to 3 orders; newest on the left. Changes between the two mostrecent orders are indicated.) Start date and time 11/07/2021 1800 11/06/2021 1800 11/05/2021 1800 TPN Adult [[id number]] TPN Adult [[id number]] TPN Adult [[id number]] Order Status Active Last Dose in Progress Completed Last Admin New Bag at 11/06/2021 1801 by Denise Zapata, RN New Bag at 11/05/2021 1753 by Kathy Beck, SHARON Frequency Continuous (1800) Continuous (1800) Continuous (1800) Additives adult multivitamin 5 mL 5 mL 5 mL adult trace elements Zn-Cu-Mn-Se (Tralement) 0.5 mL 0.5 mL 0.5 mL folic acid 400 mcg 400 mcg 400 mcg Vit Q0-U0-F3-B5-B6 (B Complex) 1 mL 1 mL 1 mL Electrolytes potassium phosphate 22 mmol 22 mmol 20 mmol potassium chloride 76 mEq 76 mEq 60 mEq sodium chloride 50 mEq 80 mEq 80 mEq sodium acetate 172 mEq 142 mEq 142 mEq calcium gluconate 8 mEq 8 mEq 8 mEq magnesium sulfate 32 mEq 32 mEq 32 mEq Dextrose dextrose 70% 235 g 206 g 176 g Amino Acids amino acid 15% no.5 (ClinisoL) 110 g 110 g 100 g QS Base sterile water 1,435.51 mL 1,517.41 mL 1,635.57 mL Lipid fat emulsion (Intralipid) 30 % 60 g 50 g 50 g Energy Contribution Proteins 440 kcal 440 kcal 400 kcal Dextrose 798.97 kcal 700.43 kcal 598.33 kcal Lipids 600 kcal 501 kcal 501 kcal Total 1,838.97 kcal 1,641.43 kcal 1,499.33 kcal Electrolyte Ion Calculated Amount Sodium 222 mEq 222 mEq 222 mEq Potassium 108.27 mEq 108.27 mEq 89.33 mEq Calcium 8 mEq 8 mEq 8 mEq Magnesium 32 mEq 32 mEq 32 mEq Aluminum -- -- -- Phosphate 25 mmol 24.5 mmol 22.51 mmol Chloride 126 mEq 156 mEq 140 mEq Acetate 265.13 mEq 235.13 mEq 226.67 mEq Chloride: Acetate Ratio 0.475 0.665 0.62 Trace Elements Copper 0.15 mg 0.15 mg 0.15 mg Manganese 27.5 mcg 27.5 mcg 27.5 mcg Selenium 30 mcg 30 mcg 30 mcg Zinc 1.5 mg 1.5 mg 1.5 mg Other Total Amino Acid 110 g 110 g 100 g Total Amino Acid/kg 1.06 g/kg 1.06 g/kg 0.97 g/kg Glucose Infusion Rate 1.57 mg/kg/min 1.37 mg/kg/min 1.18 mg/kg/min Osmolarity 1,061 1,008.39 908.38 Volume 2,880 mL 2,880 mL 2,880 mL Rate 120 mL/hr 120 mL/hr 120 mL/hr Dosing Weight 104.1 kg 104 kg 103.3 kg Infusion Site Central Central Central Total Multi-vitamins 5 mL 5 mL 5 mL Lab Results Component Value Date NA 140 11/07/2021 K 4.1 11/07/2021 CL 104 11/07/2021 CO2 24 11/07/2021 BUN 32 (H) 11/07/2021 CREATININE 1.07 11/07/2021 ESTGFR 75 11/07/2021 MAGNESIUM 0.90 11/07/2021 CALCIUM 8.6 11/07/2021 PHOS 3.0 11/07/2021 AST 15 11/07/2021 ALT 27 11/07/2021 ALKPHOS 123 11/07/2021 BILITOT 0.5 11/07/2021 BILIDIR 0.2 11/07/2021 TRIG 171 07/13/2021 HA1C 4.8 07/13/2021 [id number] 1,799 (H) 08/01/2021 SFOLATE 5.6 08/01/2021 IRON [...] Injury Device Sites: O2 sat monitor, IV sites, ECG Leads Other Sites: ostomy, R DL PICC, L TL tunneled line, SL mediport Relevant medications: BMX, imodium (not given), protonix, caphosol, prograf, zofran prn Last Bowel Movement: 11/06/21 Intake/Output Summary (Last 24 hours) at 11/07/2021 1123 Last data filed at 11/07/2021 0947 Gross per 24 hour Intake 5624 ml Output 4650 ml Net 974 ml Admit Weight: 107.1 kg Estimated body mass index is 33.23 kg/m?? as calculated from the following: Height as of this encounter: 177 cm (5' 9.69). Weight as of this encounter: 104.1 kg (229 lb 8 oz). Anton Body Weight: 74.6 kg Usual Body Weight: 235 lbs per pt Wt Readings from Last 10 Encounters: 11/07/21 104.1 kg (229 lb 8 oz) 10/15/21 107.8 kg (237 lb 9.6 oz) 10/04/21 107.2 kg (236 lb 6.4 oz) 09/27/21 109 kg (240 lb 6.4 oz) 09/16/21 105.9 kg (233 lb 6.4 oz) 09/12/21 106.6 kg (235 lb) 09/09/21 102.8 kg (226 lb 9.6 oz) 09/05/21 106.8 kg (235 lb 6.4 oz) 08/26/21 102.8 kg (226 lb 9.6 oz) 08/19/21 100.2 kg (221 lb) Patient Vitals for the past 168 hrs: Weight 11/07/21 0334 104.1 kg (229 lb 8 oz) 11/06/21 1617 104.6 kg (230 lb 9.6 oz) 11/06/21 0356 104 kg (229 lb 4.5 oz) 11/05/21 1559 104.7 kg (230 lb 13.2 oz) 11/05/21 0320 103.3 kg (227 lb 11.8 oz) 11/04/21 1719 103.3 kg (227 lb 11.8 oz) 11/04/21 0410 102.5 kg (225 lb 15.5 oz) 11/03/21 1520 102.8 kg (226 lb 10.1 oz) 11/03/21 0400 102.3 kg (225 lb 8.5 oz) 11/02/21 1618 103.1 kg (227 lb 4.7 oz) 11/02/21 0353 103.1 kg (227 lb 4.7 oz) 11/01/21 1705 102.9 kg (226 lb 13.7 oz) 11/01/21 0430 102.4 kg (225 lb 12 oz) 10/31/21 1647 102.3 kg (225 lb 8.5 oz) Assessment: Estimated needs: Calories: 1865 (25 kcal/kg IBW) Protein: 89-112 grams (1.2-1.5 g/kg IBW) Nutrition Focused Physical Exam (NFPE): Performed on 10/28/21. Subcutaneous fat loss at Orbital region: None present Upper arm region (triceps/biceps): None present Thoracic and lumbar region (ribs, lower back and maxillary line): Not assessed Lean muscle loss to Orthodoxy region (temporalis muscle): None present Clavicle bone region (pectoralis major): None present Dorsal hand (interosseous muscle): None present Shoulder (deltoid): None present Scapular bone region (latissimus dorsi, trapezius muscles): Not assessed Thigh region (quadriceps muscle): None present Posterior calf region (gastrocnemius muscle): None present Fluid accumulation: Not assessed Nutrition intake and intake history/Interview: 40mEq of KCl repletion noted yesterday. 11/06: 60mEq of KCl repletion noted yesterday. 11/04: Luis Manuel reported a poor appetite today, not taking solids d/t mucositis and primarily taking in water as fluids, gatorade at bedside. Ileostomy output high, although per pt output is stable. Continue to monitor wt, below reported UBW. Protein-calorie Malnutrition: Not enough data to assess (Cameron, RAFA J Parenteral Enteral Nutr. 2011; 36(3): 273-83) Nutrition to continue to follow up while inpatient. Thank you, Claudia Claros RD Pager #:[phone] Khloe Richardson MD - 11/07/2021 9:33 AM EDT HEMATOLOGY STAFF ADDENDUM I have independently interviewed and examined this patient and have personally reviewed the relevantclinical, laboratory and radiological data with the housestaff on rounds. Please refer to the comprehensive progress note above, with which I concur. I have reviewed and endorse the plan as outlined and have made any additions/corrections below. This patient meets criteria for inpatient level of care based on the above medical complexity. 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 Pretransplant course marked by dev't of C difficile colitis with toxic megacolon, s/p [id number]-dcmfdfimf, with ostomy, then dev't of 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 ?? Day +16 today. Continues to be active ! Wt at admit wt; Net +1.25L/24hr. # Severe mucositis - on morphine prn. - Most meds switched to IV. - TPN; continue supportive measures. # ID: VRE bacteremia : noted on Bl Cx from 11/02; Rpt Cx on 11/03 growing GPC and Corynebacterium. ECHO looks OK. - On cefepime, daptomycin. - On Acyclovir and fluconazole ppx??; On oral Vanc for C. Diff ppx? # Pancytopenia - 2ry to chemo. - on Zarxio?and prn transfusions.? # GVHD ppx??- On Tacrolimus 0.7mg IV BID . T ac level 11/04 - 7.8. # VOD ppx - on Ursodiol ; lovenox ??c'ed last week for oral bleeding. ? # GI , Ostomy - C. Diff neg. On prn imodium for increased out put I reviewed his situation and our plans with the team, RN and pt on rounds today. Central Venous Access Statement of Need Tunneled catheter - clean dry intact site Can the central IV access be removed? [ Yes [x ] No [ ] N/A If no, reason for central access: [X] Stem cell transplant patient or AML induction Khloe Richardson MD Hematology Staff physician Pager: [phone] 11/07/21 Stacy Marin MD - 11/07/2021 7:44 AM EDT Images from the original note were not included. Inpatient Hematology/Oncology/SCT Progress Note Patient info: Name: Luis Manuel Mobley Jr. : 1960 PCP: LEISA Munguia PCP phone number: [phone] Date of Admission: 10/15/2021 ( Hospital Day 23 days ) Service: Hem/Onc Team A pg [phone] (09/03) Responsible Attending:Khloe Richardson MD ID: Luis Manuel Mobley Jr. is a 61 y.o. 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 Baseline weight: 107.1kg Donor: MUD ABO: Donor O negative, recipient O positive HLA: 05/26 ID status: Donor and recipient both CMV negative Conditioning regimen: fludarabine, busulfan GVHD regimen: Rabbit ATG, methotrexate, tacrolimus 24 Hour Events: - Yesterday, changed to scheduled po morphine with good effect, tolerated 1/2 of milkshake, TTE wo vegetation - Overnight, NSR on tele, able to take all pills, refused po morphine throughout night, bloody mouthsores and intermittent small bloody nose - This AM, reports will try to walk around and eat some today - Weight 104kg -> 104.1kg - In/Out +1258 (po 300, stool 1525) - Cr 1 -> 1.07 - BCx 11/05 NGTD Vitals: Last value Range last 24 hrs Temperature Temp: 37 ??C (98.6 ??F) Temp: [36.8 ??C (98.2 ??F)-38 ??C (100.4 ??F)] Heart Rate Heart Rate: 91 Heart Rate: [74-91] Blood Pressure BP: 143/78 BP: (142-153)/(75-94) Respiratory Rate Resp: 18 Resp: [18-20] SpO2 SpO2: 95 % SpO2: [95 %-98 %] Intake/Output Summary (Last 24 hours) at 11/07/2021 0744 Last data filed at 11/07/2021 0641 Gross per 24 hour Intake 5033 ml Output 3775 ml Net 1258 ml Patient Vitals for the past 168 hrs: Weight 11/07/21 0334 104.1 kg (229 lb 8 oz) 11/06/21 1617 104.6 kg (230 lb 9.6 oz) 11/06/21 0356 104 kg (229 lb 4.5 oz) 11/05/21 1559 104.7 kg (230 lb 13.2 oz) 11/05/21 0320 103.3 kg (227 lb 11.8 oz) 11/04/21 1719 103.3 kg (227 lb 11.8 oz) 11/04/21 0410 102.5 kg (225 lb 15.5 oz) 11/03/21 1520 102.8 kg (226 lb 10.1 oz) 11/03/21 0400 102.3 kg (225 lb 8.5 oz) 11/02/21 1618 103.1 kg (227 lb 4.7 oz) 11/02/21 0353 103.1 kg (227 lb 4.7 oz) 11/01/21 1705 102.9 kg (226 lb 13.7 oz) 11/01/21 0430 102.4 kg (225 lb 12 oz) 10/31/21 1647 102.3 kg (225 lb 8.5 oz) Exam: GENERAL:?appeared in no acute distress, awake and watching TV MOUTH: blood noted at posterior oropharynx, diffuse inflammation and blood in oral mucosa CARDIOVASCULAR:??rrr no mrg PULMONARY:??CTAB on RA, no increased wob GASTROINTESTINAL:??Abdomen soft nontender to palpation w +BS. Colostomy with brown watery stool in place. SKIN:??No rashes, bruises or petechiae. ?? EXT: no Edema at ankles NEUROLOGICAL:??Alert and oriented to person, place and time. No focal deficits Medications: Scheduled Meds: ??? loperamide 2 mg Oral Q6H ??? morphine 4 mg Intravenous Q4H ??? DAPTOmycin 10 mg/kg/dose (Adjusted) Intravenous Q24H ??? ceFEPime 2 g Intravenous Q8H ??? metoprolol succinate XL 50 mg Oral Daily ??? ursodiol 300 mg Oral Daily with breakfast ??? ursodiol 600 mg Oral Daily with dinner ??? pantoprazole 40 mg Intravenous BID ??? acyclovir 250 mg/m2/dose (Anton) Intravenous Q12H ??? fluconazole 400 mg Intravenous Q24H ??? tacrolimus 0.7 mg Intravenous 2 times per day ? ? sjfmslglc-lzeodxkgf-lf-mag-sim 5 mL Oral 4 Times Daily AC & HS ??? gabapentin 200 mg Oral TID ??? sodium chloride 0.9 % (flush) 5 mL Intravenous BID ??? vancomycin 125 mg Oral BID ??? flecainide 50 mg Oral BID ??? supersaturated calcium phosphate 30 mL Oral 4 Times Daily ??? [START ON 11/21/2021] sulfamethoxazole-trimethoprim DS 1 tablet Oral Daily ??? filgrastim-sndz 600 mcg Subcutaneous Daily Continuous Infusions: ??? TPN Adult 120 mL/hr at 11/06/21 1801 PRN Meds:.lidocaine, sodium chloride 0.9 % (flush), magnesium sulfate, magnesium sulfate, potassium chloride, potassium chloride ER, potassium chloride ER, acetaminophen, camphor-menthoL, loperamide, alum-mag hydroxide-simeth, calcium carbonate, sucralfate, furosemide, furosemide, sodium chloride 0.9 % (flush), lidocaine, LORazepam, ondansetron, prochlorperazine, heparin, porcine, sodium chloride 0.9% (flush) Labs: Recent Labs 11/07/21 0340 11/06/21 1605 11/06/21 0315 11/05/21 1710 11/05/21 0305 WBC 0.0* -- 0.0* -- 0.0* HGB 7.8* -- 7.4* -- 6.7* HCT 21.5* -- 20.6* -- 18.4* PLATELET 14* 19* 9* < > 13* < > = values in this interval not displayed. ANC 0 Recent Labs 11/07/21 0340 11/06/21 0315 11/05/21 0305 NA 140 143 144 K 4.1 3.6 3.4* CL 104 108* 107 CO2 23 BUN 32* 34* 36* CREATININE 1.07 1.00 1.23 Recent Labs 11/07/21 0340 11/06/21 0315 11/05/21 0305 CALCIUM 8.6 8.6 8.6 MAGNESIUM 0.90 0.90 0.91 PHOS 3.0 2.8 3.0 Recent Labs 11/07/21 0340 11/02/21 0350 AST 15 16 ALT 27 41 ALKPHOS 123 121 BILITOT 0.5 0.4 BILIDIR 0.2 0.2 No results for input(s): INR, PT, PTT in the last 72 hours. Microbiology: BCx 11/05: NGTD BCx 11/03: 1/2 Corynebacterium species, likely contaminant BCx 11/02: VRE UA 11/03: unremarakble BCx 10/20: NGTD UA 10/20: does not look infectious Microbiology Results (Last 30 days) Procedure Component Value Units Date/Time Blood culture [[id number]] Collected: 11/05/21 0935 Lab Status: Preliminary result Specimen: Blood from Hand, Left Updated: 11/06/21 1502 Blood Culture No growth at 1 day. Blood culture [[id number]] Collected: 11/05/21 0928 Lab Status: Preliminary result Specimen: Blood from Arm, Left Updated: 11/06/21 1502 Blood Culture No growth at 1 day. Blood culture [[id number]] Collected: 11/03/21 0408 Lab Status: Preliminary result Specimen: Blood Updated: 11/07/21 0701 Blood Culture No growth at 4 days. Blood culture [[id number]] (Abnormal) Collected: 11/03/21 0356 Lab Status: Preliminary result Specimen: Blood Updated: 11/06/21 1057 Blood Culture -- Corynebacterium species isolated : Interpretation of the importance of skin mitzy such as Coagulase Negative Staph, Viridans Strep, Corynebacteria and other Gram Positive organisms from a single Blood Culture set requires clinical correlation. Gram Stain Aerobic -- Note: This is a corrected report Growth detected in aerobic bottle. Gram Positive Rods seen Previously reported as: Gram Positive Cocci seen Results called to and read back by Denise Madera RN at 11/06/21 10:57:10 Blood culture [[id number]] (Abnormal) (Susceptibility) Collected: 11/02/21 1018 Lab Status: Final result Specimen: Blood Updated: 11/05/21 1124 Blood Culture -- Enterococcus faecium isolated * VRE, Vancomycin Resistance * Isolate saved. If future testing is required, contact the Microbiology Industrial Organizational Psychologist. Gram Stain Aerobic -- Growth detected in aerobic bottle. Gram Positive Cocci in pairs seen Gram Stain Anaerobic -- Growth detected in anaerobic bottle. Gram Positive Cocci in pairs seen Results called to and read back by Radha Marmolejo 11/03/21 02:42:51 VMartin Susceptibility Enterococcus faecium MICROSCAN METHOD Ampicillin Resistant Erythromycin Resistant Gentamicin 500 Sensitive Linezolid Sensitive Penicillin Resistant Vancomycin Resistant Linear View Blood culture [[id number]] (Abnormal) Collected: 11/02/21 1018 Lab Status: Final result Specimen: Blood Updated: 11/05/21 1125 Blood Culture -- Enterococcus faecium isolated * VRE, Vancomycin Resistance * Susceptibilities previously reported Gram Stain Anaerobic -- Growth detected in anaerobic bottle. Gram Positive Cocci in pairs seen Gram Stain Aerobic -- Growth detected in aerobic bottle. Gram Positive Cocci in pairs seen C. Difficile Screen [[id number]] Collected: 10/28/21 1207 Lab Status: Final result Specimen: Stool Updated: 10/28/21 1334 C Diff Screen Negative Comment: Ag/Tox Neg C. diff?? Negative Clostridium difficile is not present in the specimen. If patient is having diarrhea suspected to be from an infectious cause, then Soap & Water Contact Precautions are still required. Blood culture [[id number]] Collected: 10/20/21 1732 Lab Status: Final result Specimen: Blood Updated: 10/25/21 2301 Blood Culture No growth at 5 days. Blood culture [[id number]] Collected: 10/20/21 1732 Lab Status: Final result Specimen: Blood Updated: 10/25/21 2301 Blood Culture No growth at 5 days. Blood culture [[id number]] Collected: 10/19/21 1139 Lab Status: Final result Specimen: Blood from Antecubital, Left Updated: 10/24/21 1501 Blood Culture No growth at 5 days. Blood culture [[id number]] (Abnormal) Collected: 10/19/21 1133 Lab Status: Final result Specimen: Blood from Hand, Right Updated: 10/25/21 0910 Blood Culture -- Coagulase negative Staphylococcus species detected by PCR Interpretation of the importance of skin mitzy such as Coagulase Negative Staph, Viridans Strep, Corynebacteria and other Gram Positive organisms from a single Blood Culture set requires clinical correlation. Gram Stain Aerobic -- Growth detected in aerobic bottle. Gram Positive Cocci in clusters seen C. Difficile Screen [[id number]] Collected: 10/19/21 1020 Lab Status: Final result Specimen: Stool Updated: 10/19/21 1607 C Diff Screen Negative Comment: Ag/Tox Neg C. diff?? Negative Clostridium difficile is not present in the specimen. If patient is having diarrhea suspected to be from an infectious cause, then Soap & Water Contact Precautions are still required. COVID-19 PCR [[id number]] Collected: 10/19/21 0405 Lab Status: Final result Specimen: Nasopharyngeal Swab Updated: 10/19/21 1835 SARS-CoV-2 RNA Not Detected Comment: This result should be interpreted in combination with the clinical observations, patient history and epidemiological information in making a final diagnosis. For testing of asymptomatic individuals, assay performance characteristics and clinical utility have not been evaluated. Testing for SARS-CoV-2 (Severe acute respiratory syndrome coronavirus 2, formerly known as 2019 novel coronavirus or 2019-nCoV) to aid in the diagnosis of COVID-19 is performed using the [employer] SARS-CoV-2 Assay as authorized by the FDA Emergency Use Authorization (EUA). This EUA assay is intended for In-vitro Diagnostic (IVD) use with respiratory specimens such as nasopharyngeal swabs collected from individuals during the acute phase of infection. This assay is performed based on the instructions for use provided by [employer] and additional guidance provided by CDC and FDA. Testing is performed in the [facility] within the Department of Pathology and Laboratory Medicine at [facility], certified under the Clinical Laboratory Improvement Amendments of 1988 (CLIA), 42 U.S.C. 263a, to perform high complexity tests. Assay performance has been verified according to clinical laboratory regulatory requirements for use with specimens collected from individuals suspected of COVID-19. Test results are provided above. A result of Not Detected indicates that the viral RNA target is not present above the limit of detection, but does not preclude SARS-CoV-2 infection. False negative results may occur if a specimen is improperly collected, transported or handled; if amplification inhibitors are present; or if inadequate numbers of viral particles are present in the specimen. When a diagnostic test is negative, the possibility of a false negative result should be considered in the context of a patient's recent exposures and the presence of clinical signs and symptoms consistent with COVID-19. A result of Detected indicates that RNA from SARS-CoV-2 was detected and the patient is infected. As required or requested by public health authorities, positive specimens may be sent for additional testing. Positive and negative predictive values for this test are highly dependent on disease prevalence. A result of Invalid indicates that neither the viral RNA targets nor the internal control target was detected. An invalid result suggests the presence of inhibitors. Recollection and re-testing is recommended in the case of an invalid result. CDC COVID-19 criteria for testing on human specimens and clinical management guidance information are available at the CDC Coronavirus Disease 2019 (COVID-19) webpage under Information for Healthcare Professionals (https://www.cdc.gov/coronavirus/2019-ncov/hcp/index.html) Additional information about this and other EUA tests can be found in provider and patient fact sheets at the following FDA website: https://www.fda.gov/medical-devices/cesyvcwuxiz-cvymniw-6049-gwgoa-06-svbtsygrx- rtg-nomwresbvfnyuo-tpcfjgr-devices/egzbk-rmrorzacoqb-eter SARS-Cov-2 RNA Source ULTRASOUND SPEC Swab COVID-19 PCR [[id number]] Collected: 10/15/212032 Lab Status: Final result Specimen: Nasopharyngeal Swab Updated: 10/16/21 0004 SARS-CoV-2 RNA PCR Not Detected Comment: This result should be interpreted in combination with the clinical observations, patient history and epidemiological information. For testing of asymptomatic individuals, assay performance characteristics and clinical utility have not been evaluated. Testing for SARS-CoV-2 (Severe acute respiratory syndrome coronavirus 2, formerly known as 2019 novel coronavirus or 2019-nCoV) to aid in the diagnosis of COVID-19 is performed using the [employer] COVID-19 Direct Assay by [employer] as authorized by the FDA issued Emergency Use Authorization (EUA). This assay is intended for In-vitro Diagnostic (IVD) use with nasopharyngeal swabs collected from individuals meeting the CDC criteria for testing. The assay is performed based on the instructions for use and additional guidance provided by the FDA. Testing is performed in the Microbiology Laboratory within the Department of Pathology and Laboratory Medicine at [facility], certified under the Clinical Laboratory Improvement Amendments of 1988 (CLIA), 42 U.S.C. section 263a, to perform high complexity tests. Assay performance has been verified according to clinical laboratory regulatory requirements. Test results are provided above. A result of Not Detected indicates that the viral RNA target is not present but does not preclude SARS-CoV-2 infection. False negative results may occur if a specimen is improperly collected, transported or handled; if amplification inhibitors are present; or if inadequate numbers of viral particles are present in the specimen. A result of Detected suggests a current or recent infection and the patient is presumed to be infected. Positive and negative predictive values for this test are highly dependent on disease prevalence. A result of Invalid indicates the inability to conclusively determine the presence or absence of SARS-CoV-2 RNA in the sample which can be due to a variety of factors. Recollection is recommended in the case of an invalid result. CDC COVID-19 criteria for testing on human specimens and clinical management guidance information are available at the CDC Coronavirus Disease 2019 (COVID-19) webpage under Information for Healthcare Professionals (https://www.cdc.gov/coronavirus/2019-ncov/hcp/index.html). Additional information about this and other EUA tests can be found in provider and patient fact sheets at the following FDA website: https://www.fda.gov/medical-devices/wrvzyburqvq-pwkbukg-3816-htbgv-75-pbkquudcj- sms-zjbwnyxuuvqdcu-thvldur-devices/uusps-xjiviubiypg-dmdz SARS-CoV-2 Source ULTRASOUND SPEC Swab Pertinent radiology/diagnostic studies: CT A/P w contrast 11/03 ?? IMPRESSION ?? 1. Ill defined opacities in lingula may represent pneumonia. Consider follow-up chest x-ray if indicated. 2. No abdominal or pelvic abscess seen. 3. Hiatal hernia with fat stranding around a thick walled and dilated distal esophagus. Finding may represent esophagitis. 4. Resolution of splenomegaly. 5. No enlarged abdominal and pelvic lymph nodes. 6. No abdominal or pelvic ascites. CXR 11/04 ?? IMPRESSION Radiographically the left basilar airspace opacity seen on 11/02/2021 has resolved and findings are now similar compared to a radiograph from 10/19/2021. However, it is uncertain to which extent the mild opacities seen on CT 11/03/2021 still persist or have resolved (due to difference in technique). ?? Within the limitation of single frontal view the change in positioning of the left subclavian central venous catheter in comparison to 10/19/2021 is due to the fact that the tip has flipped into the azygos vein (unchanged to 11/02/2021). Please correlate clinically if functionalityof this catheter remains adequate. TTE 11/06 1. There are no vegetations seen on this study, if clinical suspicion for endocarditis remains, consider OLEKSANDR for further evaluation 2. Left ventricle is normal in size. LVEF is estimated at 64% by biplane. There are no wall motion abnormalities. 3. Right ventricle is milldly dilated with normal systolic function. 4. There is no pericardial effusion. ?? ASSESSMENT/PLAN: Luis Manuel Mobley Jr. is a 61 y.o. 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 now day + 16 (day 0 is 10/22) for MUD HSCT. Tolerated stem cell infusion well on 10/22, had some rigors and nausea post- infusion that resolved with medications. Counts remain low. Neutropenic fever on 11/02, cefepime escalated to zosyn, and then todaptomycin and cefepime after 1 day when BCx positive for VRE. TTE on 10/09 with no vegetation. Tunneled line removed 11/05. Plan for total of 2 weeks of daptomycin from 1st neg BCx until 11/17, and continue cefepime and fluconazole until ANC >500. CT A/P on 11/03 w contrast did not show abdominal infection but did show esophagitis as well as GGO in lingula, which was not observed in repeat CXR. Patient's high ostomy output (2-3L per day) initially improved with scheduled imodium. Lovenox stopped on 11/02 due to heme positive stool and severe mucositis, restarted on 11/07. For mucositis, on bmx, viscous lidocaine, morphine scheduled (dilaudid causes nausea). Started TPN on 10/31. Transitioned PO medication to IV as able. Briefly on Tele when unable to take flecainide and mtop. For his bilateral feet neuropathy, will continue gabapentin to 200mg TID as tolerated Summary Plan: - stop tele - start lovenox for vod/dvt ppx - f/u CK on 11/11 - plan for dapto until 11/17 - continue cefepim and fluconzaole until ANC > 500 - schedule IV morphine 4mg q4h - no auto electrolyte repletion prn b/c on TPN - continue IV tac 0.7mg bid - monitor ostomy output - continue zarxio from day +7 to when ANC > 1500 - monitor I/O and daily weights - tacrolimus level Thursday and - f/u weekly thursday CMV - f/u Thursday EBV every 2 weeks ?? Plan: #VRE bacteremia #Neutropenic fever - likely from gut translocation from mucositis - ID signed off - abx: - cefepime 10/19 - 11/02, 11/03 - p - zosyn 11/02 - daptomycin 11/02 - 11/17 - BCx 11/03: 1/2 Corynebacterium species (likely contaminant) - BCx 11/05 NGTD - OLEKSANDR 11/06 no vegetation #STACIE, pre-renal, improving - pre-renal, noted on 10/27 - s/p 1L Bolus on 10/27 and 10/28, encourage imodium to thicken ostomy output - mIVF (10/29 -> 11/01) - continue to monitor, on TPN so no IVF #AML #MUD HSCT Day (-7): Fludarabine: Day (-6): Fludarabine, Busulfan, Rabbit ATG: Day (-5): Fludarabine, Busulfan, Rabbit ATG: Day (-4): Fludarabine, Busulfan, Rabbit ATG: Day (-3): Fludarabine, Busulfan: Day (0): Stem Cell Infusion: Day (+1): metHOTREXate: Day (+3): metHOTREXate: Day (+6): metHOTREXate: Day (+11): metHOTREXate: General - q4h vitals - strict Is/Os 2x daily - weigh patient 2x daily, notify provider if weight increases by 1kg or more in 12 hour period ?- lasix 20mg IV prn weight gain >1 kg above admission baseline ?- lasix 20mg IV for weight gain 1 kg over 12 hours or input exceeding output by greater than 1,000 ml/12h - neutropenic precautions - incentive spirometry q2h while awake - activity as tolerated - electrolyte replacement Chemotherapy/Support - Busulfan 204mg??day (-6) to day (-3) -??Fludarabine??61??mg 102ml infusion once over 30 minutes day -7 Then every 24 hours at 0900 for 4 doses day (-6) to day (-3) - Rabbit ATG??124.8mg over 10 hours day (-6), 166.4mg on day (-5) 208??on day (-4).?? - Day 0 stem cell infusion. Premedicate with acetaminophen 650mg, diphenhydramine 50mg) - Methotrexate??10mg??day (+1), day (+3), day (+6), day (+11). Hold for serum creatinine >2, bilirubin >5, fluid accumulation (large effusion or ascites), severe mucositis if potential need for intubation. - filgrastim??600mcg qd starting day (+7) until ANC >1500 ?? Laboratory Monitoring - weekly CMV PCR starting day +10, then weekly thereafter - IgG every 2 weeks starting day +1 to day +100 - U/A s/ reflex culture on admission, then daily on days -2, -1, 0? Transfusion parameters - Hgb <??7 - PLT <10, or if febrile??or bleeding??<20 - keep active T&S once hgb <8 ?? Prophylaxis Seizure ppx ?-phenytoin 300 day (-6) through (-1) - GI ppx ?- pantoprazole 40mg qd - mucositis ppx ?- supersaturated calcium phosphate oral solution 30ml 4x daily starting on admission until resolution of mucositis and ANC ?>500 - infection ppx ?- fluconazole 400mg qd starting day (0) ?- levofloxacin 750mg qd starting day (0) until ANC >500, changed tocefepime due to fever on 10/19 ?- acyclovir 800mg bid starting day (-7) ?- bactrim DS 1 tablet daily from day (-7) through day (-2) ?- bactrim DS 1 tablet MWF starting day (30) - GVHD ppx?-??Tacrolimus??0.7mg IV bid?? - Started day (-2),?target 5-10 trough - VOD ppx ?- lovenox 40mg qd day (-7) through (30) per Dr. Modi's note, he should continue lovenox 100mg qd until plt apx <40 then switch to VOD ppx dose. ?- ursodiol 300mg qAM??&??qPM day (-7) through day (+30) Hydration - NaCl 0.9% continuous??150ml/hr x??day (-6) ??Through (-3) ?? Pain/Nausea/Appetite - avoid acetaminophen through??day??(-3) - avoid steroid antiemetics - palonosetron 0.25mg day (-6) - aprepitant 130mg day (-6) prior to??busulfan - lorazepam 0.5mg IV q4h prn nausea, anxiety - ondansetron??8mg q8h prn nausea, vomiting beginning day (-3) - prochlorperazine 10mg IV q6h prn nausea, vomiting - use ondansetron >??prochlorperazine or promethazine >??lorazepam >??metoclopramide - olanzapine 5mg qhs starting day (-3) for 5 doses?? - morphine scheduled ?? #Fever, neutropenic - 102.9 10/19 - 100.8 11/02 - CXR benign - C. Diff negative - UA unremarkable - BCx 10/20 negative - BCx 11/02 pending - Zosyn 11/02 - cefepime 10/19 - 11/02, 11/03 - p - vanc 10/20 - 10/22 - daptomycin 11/02 - p #Paroxysmal Afib - Continue home metoprolol, flecainide - Tele ?? #Hx of provoked PE in Apr 2021 - On lovenox 100mg qd (held prior to central line placement) - Continue until plt reach approximately 40 followed by switch to prophylactic dosing - may not need upon discharge b/c s/p 3 months of AC ?? #Hx of C diff colitis - Continue home PO vancomycin as tolerated - Ostomy care #Bilateral Feet tingling - pt reports having baseline bilateral feet tingling that was noted to be worsened on on 10/21 (2 daysafter completing 5 days of fludarabine), strength intact, no loss of sensation - start gabapentin 100mg TID (10/21 - 10/23), 200mg TID (10/23 - p) #GERD - takes protonix at home - current regimen: protonix bid, carafate, tums, #Pancytopenia 2/2 to chemo and disease - continue to monitor, transfuse as needed for support #Routine DVT PPx: lovenox 40mg Diet: Neutropenic (BMT) diet Dispo: [place] CODE STATUS: Attempt Cardiopulmonary Resuscitation - Inpatient Stacy Marin MD PGY1 Internal Medicine 11/07/2021 Heme/Onc/BMT Team A Pager #[phone] Narcisa Suggs RN - 11/07/2021 5:20 AM EDT Patient Summary Reason for admission: Day +16 (11/07) of 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 Significant 24 hour events: 11/05 PM: Afebrile, tele monitoring continued - NSR. Endorsing 10/24 mouth/throat pain - premedicated with PRN zofran before pills, able to take all meds. Cefepime and daptomycin administered per OCT, TPN continued. Refusing morphine throughout the night. Pt has bloody mouth sores and intermittent smallbloody nose. 11/06 AM: Prn morphine changed to Q4 scheduled w/ + effect. Able to tolerate ~1/2 milkshake today. One unit plts transfused and tolerated well, recheck 19. Lovenox still on hold per MD. Echo and surveillance bcx completed. Tele showing NSR, no events. Worked w/ PT doing stairs, tolerated well. 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 Significant 24 hour events: 11/05 PM: Afebrile, tele monitoring continued - NSR. Endorsing 3/10 mouth/throat pain - premedicated with PRN zofran and morphine before pills, able to take all meds. Cefepime and daptomycin administered per OCT, TPN continued. PRN potassium replaced per OCT and OK'ed by MD since pt is on TPN. Plt level 9 -MD notified, no plt given due to severe shortage per MD.Resting between care. 11/06 AM: Prn morphine changed to Q4 scheduled w/ + effect. Able to tolerate ~1/2 milkshake today. One unit plts transfused and tolerated well, recheck 19. Lovenox still on hold per MD. Echo and surveillance bcx completed. Tele showing NSR, no events. Worked w/ PT doing stairs, tolerated well. 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 Protocol [id number] ?? I reviewed the rationale and details of this study with Luis Manuel today, including the need and basis foradditional tubes on day +14/15 for lineage specific chimerism analysis, then 30 day follow up (per standard of care). ?? All questions were addressed, protocol reviewed, and Luis Manuel voiced the desire to enroll in this study.A copy of the signed consent form was given to the patient, and this lab will be drawn today (day +15). ? TACHO Goodrich MD Heme/Onc Section ?? Aracely rGeco MD - 11/06/2021 1:13 PM EDT Infectious Disease Service - Follow-Up Note Active ID Issue(s): - Transient VRE bacteremia - Neutropenic fever, now improved Interval Updates: Blood Cx from 11/03 speciated out with Corynebacterium, rather than VRE. Patient feels that his mucositis is slowly improving every day. Antimicrobials: Daptomycin (11/02-) Cefepime (10/19-) Prophylaxis: Acyclovir Fluconazole PO Vancomycin Medications: ??? loperamide (Imodium A-D) capsule 2 mg ??? TPN Adult ??? morphine (4 mg/mL) injection 4 mg ??? lidocaine (Xylocaine) 2 % viscous solution 15 mL ??? TPN Adult ??? sodium chloride 0.9 % (flush) (BD PosiFlush Normal Saline 0.9) flush 10 mL ??? DAPTOmycin (Cubicin) 845 mg in sodium chloride 0.9% 66.9 mL ??? ceFEPime (Maxipime) 2g vial attach to sodium chloride 0.9% 100 mL Mini-Bag Plus 2 g ??? metoprolol succinate XL (Toprol-XL) tablet 50 mg ??? magnesium sulfate 2 g in sterile water 50 mL infusion ??? magnesium sulfate 1 g in dextrose 5% 100 mL infusion ??? potassium chloride 20 mEq in sterile water 100 mL infusion ??? potassium chloride ER (K-Dur/Klor-Con) tablet 40 mEq ??? potassium chloride ER (K-Dur/Klor-Con) tablet 20 mEq ??? ursodiol (Actigall) (60 mg/mL) oral liquid 300 mg ??? ursodiol (Actigall) (60 mg/mL) oral liquid 600 mg ??? pantoprazole (Protonix) injection 40 mg ??? acetaminophen (Tylenol) (32.02 mg/mL) oral liquid 975 mg ??? acyclovir (Zovirax) 472.5 mg in sodium chloride 0.9% 259.45 mL infusion ??? fluconazole (Diflucan) 400 mg in sodium chloride 0.9% 200 mL infusion ??? tacrolimus (Prograf) 0.7 mg in dextrose 5% Non-PVC 150.7 mL infusion ??? camphor-menthoL (Sarna) lotion ??? diphenhydrAMINE/aluminum-magnesium hydroxide with simethicone/lidocaine (BMX) (6.67 mg-0.83 mg-13.33 mg-1.33 mg/mL) oral liquid 5 mL ??? loperamide (Imodium A-D) capsule 2 mg ??? alum-mag hydroxide-simeth (Maalox) (40 mg-40 mg-4 mg/mL) oral liquid 10 mL ??? calcium carbonate (Tums) chewable tablet 500 mg ??? sucralfate (Carafate) (100 mg/mL) oral liquid 1 g ??? gabapentin (Neurontin) capsule 200 mg ??? furosemide (Lasix) (10 mg/mL) injection 60 mg ??? furosemide (Lasix) (10 mg/mL) injection 60 mg ??? sodium chloride 0.9 % (flush) (BD PosiFlush Normal Saline 0.9) flush 5 mL ??? sodium chloride 0.9 % (flush) (BD PosiFlush Normal Saline 0.9) flush 5-20 mL ??? lidocaine (Xylocaine) 1% (10 mg/mL) injection 3 mg ??? vancomycin (Vancocin) capsule 125 mg ??? flecainide (Tambocor) tablet 50 mg ??? LORazepam (Ativan) (2 mg/mL) injection 0.5 mg ??? ondansetron (pf) (Zofran) (2 mg/mL) injection 8 mg ??? prochlorperazine (Compazine) (5 mg/mL) injection 10 mg ??? supersaturated calcium phosphate (Caphosol) oral solution 30 mL ??? [START ON 11/21/2021] sulfamethoxazole-trimethoprim DS (Bactrim DS) 800-160 mg per tablet 1 tablet ??? filgrastim-sndz (Zarxio) (300 mcg/0.5 mL) injection 600 mcg ??? heparin (pf) (porcine) (100 units/mL) flush 5 mL syringe 500 Units ??? sodium chloride 0.9 % (flush) (BD PosiFlush Normal Saline 0.9) flush 5-20 mL Vitals: Last value Range last 24 hrs Temperature Temp: 36.8 ??C (98.2 ??F) Temp: [36.8 ??C (98.2 ??F)-37.3 ??C (99.1 ??F)] Heart Rate Heart Rate: 84 Heart Rate: [76-87] Blood Pressure BP: 153/85 BP: (132-158)/(77-90) Respiratory Rate Resp: 20 Resp: [18-22] SpO2 SpO2: 97 % SpO2: [91 %-100 %] Physical Exam: General: In no acute distress, resting in bed comfortably, pleasant HEENT: No scleral icterus, erosions present on upper palate consistent with severe mucositis Neck: Supple, trachea midline Pulmonary: Clear to ascultation listening anteriorly, no crackles or wheezes CV: Regular rate and rhythm, no murmurs Chest: R chest wall port in place, not accessed. Dressing in place over prior L chest wall SBCC site. Abdomen: Soft, mildly distended, non-tender to palpation in all quadrants. Midline incision appears well healed, RLQ ostomy with green stool output. Extremities: Trace peripheral edema. RUE PICC in place without surrounding erythema. Skin: No rashes or lesions noted on visible skin Neuro: Alert and oriented, no focal deficits, moving all extremities spontaneously Psych: Normal mood and affect, linear thought process Laboratory: Recent Labs 11/06/21 03111/05/21 1710 11/05/21 0305 11/04/21 1450 11/04/21 0340 WBC 0.0* -- 0.0* -- 0.0* HGB 7.4* -- 6.7* -- 5.9* HCT 20.6* -- 18.4* -- 16.8* PLATELET 9* 14* 13* < > 13* < > = values in this interval not displayed. Recent Labs 11/06/21 0315 11/05/21 0305 11/04/21 0340 NA 143 144 140 K 3.6 3.4* 3.4* CL 108* 107 108* CO2 * BUN 34* 36* 36* CREATININE 1.00 1.23 1.35 Recent Labs 11/02/21 0350 10/31/21 0415 AST 16 18 ALT 41 42 ALKPHOS 121 118 BILITOT 0.4 0.3 BILIDIR 0.2 0.1 Microbiology: 11/06 BCx x2 - NGTD 11/05 BCx x2 - NGTD 11/03 BCx x2 - Corynebacterium species in 1/4 vials 11/02 BCx x2 - VRE in 4/4 vials 10/28 C diff screen - negative 10/20 BCx x2 - NG 10/19 BCx x2 - CoNS in 1/4 vials 10/19 C diff screen - negative 10/19 SARS-CoV-2 PCR - not detected 10/15 SARS-CoV-2 PCR - not detected Radiology/Studies/Procedures: TTE (11/06/2021) 1. There are no vegetations seen on this study, if clinical suspicion for endocarditis remains, consider OLEKSANDR for further evaluation. 2. Left ventricle is normal in size. LVEF is estimated at 64% by biplane. There are no wall motion abnormalities. 3. Right ventricle is milldly dilated with normal systolic function. 4. There is no pericardial effusion. CXR (11/04/2021) Left basilar airspace opacity seen on 11/02/[address] abdomen & pelvis w/ IV contrast (11/03/2021) 1. Ill defined opacities in lingula may represent pneumonia. Consider follow-up chest x-ray if indicated. 2. No abdominal or pelvic abscess seen. 3. Hiatal hernia with fat stranding around a thick walled and dilated distal esophagus. Finding may represent esophagitis. 4. Resolution of splenomegaly. 5. No enlarged abdominal and pelvic lymph nodes. 6. No abdominal or pelvic ascites. Impression: Luis Manuel Mobley Jr. is a 61 y.o. male with Hx of relapsed FLT3+ AML, along with prior Hx of fulminant Cdifficile colitis requiring colectomy in 05/2021, who is admitted for allogeneic HSCT, w/ day 0 = 8. On 10/19, he spiked high grade fevers in the setting of downtrending WBC count, and he was started on cefepime w/ improvement of his fever curve. Blood Cxs on that day revealed growth of CoNS, which was felt to be a contaminant. On 11/02, he spiked recurrent neutropenic fevers, and was noted to have VRE bacteremia. The most likely source is gut translocation in s/o severe mucositis, though his L chestwall SBCC is another potential source and has now been removed. Recommendations: - Continue IV daptomycin 10 mg/kg daily for treatment of VRE bacteremia for a total of 14 days from date of first negative blood Cx, w/ end date of 11/17/2021 - Continue IV cefepime 2g q8h for treatment of neutropenic fever, while ANC remains <500 - Continue fluconazole for antifungal prophylaxis, while ANC remains <500 - convert to oral as able - Continue acyclovir for antiviral prophylaxis - convert to PO as able - Continue PO vancomycin 125 mg q12h for secondary CDI prophylaxis until 7 days after cefepime is discontinued Monitor for toxicity of daptomycin, cefepime, acyclovir, fluconazole, PO vancomycin by checking CBC w/ diff, CMP. Recommendations discussed with primary team. The Infectious Disease consult service will continue to follow the patient. Do not hesitate to pageID Green team with any further questions or concerns. X ID will sign off. Please contact us if further consultation required. Aracely Greco MD Staff Physician in Infectious Diseases Fadumo Ortiz PTA - 11/06/2021 12:44 PM EDT Physical Therapy Note Treatment Number PT: 2 Patient profile: Luis Manuel Mobley Jr. is a 61 y.o. right handed male admitted on 10/15/2021. Pt admitted for planned admission for MUD HSCT; he underwent 10/22/21 SCT and issues with nausea, rigors, and tachycardia post procedure. Patient has also had issues with STACIE, heartburn, nausea, high ostomy output, and heme + stool. Pt with hx of??paroxysmal Afib,??neuropathy, GERD, BPH, c diff colitis c/b toxic megacolon s/p bowelresection and colostomy??in may 2021,??FLT3+ AML with positive [employer] disease??s/p CR w/ 7+3+Midostaurin c/b relapse tx w ventoclax + gilteritinib (held since 10/08) with pre-transplant BM and LP showing FELY. ?? He is being managed on . Interval History: Per last Hematology/ Oncology note on 11/05: Day +14 today. Overall, feels he is improving . Wt below admit wt; Net + 840ml/24hr. Able to take all PO meds. Had PICC yesterday; tunneled catheter will be removed today. - Bl Cx from 11/03 growing GPC. Received only 2 doses of morphine 2mg. - Stool output still 1300ml ; took only one dose of imodium. ?? Social History: Home set-up: Lives with his Partner, Chai, and Chai works but will be taking time off when he is d/c'd home. It is a 2 level home, but he stays on one level, laundry is in the basement. Bathroom Set-up: walk in shower with built in seat Stairs: 3 steps with a door or counter to hold onto. Baseline Mobility: walks without a walker, has not been driving since Apr due to double vision, independent with ADLs, enjoys TV, Football and puttering around the house. 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 Patient empties own ostomy, partner helps change ostomy. Sleeps in a regular bed. Equipment at home: has a rolling walker, and built in shower seat. Fall history: none. ?? Precautions/Special Considerations: Neutropenic Precautions. Lines: Right side ostomy. Activity Orders: activity as tolerated Diet: neutropenic diet. ?? Mobility and Positioning Recommendations: ?? Pt. to utilize rolling walker and contact guard with assist for IV pole and chair follow to sit as needed for ambulation with nursing. ?? Supervision for transfers ?? Please encourage up to chair for meal times as able. ?? Pt encouraged to ambulate frequently with staff, getting into the bathroom for toileting and walking out in the marmolejo >/= 3 times daily as able. Subjective: Let's see how far I can walk, I am losing my endurance Objective: Patient seen for physical therapy and demonstrated the following: Pain: Pt reports no pain throughout session Vital Signs: VSS on RA throughout session, HR ranging between 115-130 with ambulation ?? Pt was sitting EOB with RN upon arrival of therapy, agreeable to therapy ?? Pt able to stew shoes independently ?? Sit to stand, independently with FWW ?? Ambulated from EOB to bathroom with FWW, close supervision ?? Performed x3 step up and overs with FWW on 6 step in room, close supervision ?? Ambulated 450' with FWW, close supervision, chair follow, decreased gait speed, moderate relianceof UE's on FWW, no LOB noted ?? Sit to stand, independently with FWW ?? Pt left sitting EOB with all needs met and with call gaming in reach RN in room following visit. Education: Pt educated on importance of getting OOB, transfer training, stair training, gait training, energy conservation techniques Assessment: Luis Manuel Mobley Jr. was seen today for physical therapy treatment session for continuation of POC. Today's focus was on stair training. Pt demonstrated good carry over on stair training with FWW, with no LOB noted. Pt states that his steps to enter/exit the house are wide enough to fit the FWW onto. Although pt's endurance is slightly decreasing d/t his acute myeloid leukemia, he is still able ambulate functional distances with FWW. Will progress pt next session to a LRD as long as there isno decrease regarding balance deficits. Pt will benefit from ongoing therapeutic interventions to achieve therapy goals. Discharge Recommendations: Based on the current findings, Anticipated Discharge Disposition (PT): home with home health when medically ready for hospital discharge. Consult Recommendations: No other consults recommended at this time. Equipment needs: Anticipated Equipment Needs at Discharge (PT): to be determined Physical Therapy Goals: To be achieved by 12/02/21: ?? 1. Pt. to demonstrate knowledge of safety limitations and precautions and will appropriately requestassistance for functional activities and to mobilize. 2. Pt. to demonstrate understanding of AROM and breathing exercises. 3. Pt. to perform bed mobility independently. 4. Pt. to perform Sit<->stand and Stand Pivot transfers independently using no assistive device. 5. Pt. to ambulate 500 feet with modified independence using least restrictive or no device. 6. Pt. to ambulate up/down 3 step/stairs using one rail with modified independence. MET 7. Family or caregiver to demonstrate understanding of therapeutic interventions to support the careof the patient. Plan: Therapy Frequency (PT): 1-3 times/wk for as outlined in initial evaluation. Patient agrees with plan as stated. Time IN / OUT: 8572-0581 Total Minutes, Physical Therapy: 24 Billing Code: TEF 2 RENE Bull Physical Therapy Inpatient Rehabilitation Department Fadumo Ortiz PTA Pager: [phone] Physical Therapy Inpatient Rehab Department Claudia Claros RD - 11/06/2021 9:39 AM EDT Images from the original note were not included. Nutrition Progress Note Luis Manuel Mobley Jr. is a 61 y.o. 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 Reason for intervention: Follow up and TPN Comments: TPN to provide 206g dextrose, 110g protein, and 50g lipid in 2,880mL. 1/2 NS. Increased K by 20mEq. Increased phos by 2mmol. Increased calories. Daily BMP with mag and phos please. Weekly LFTs and TG while on TPN. Monitor wt daily I was able to discuss plan with provider Ian Diaz MD Hem/Onc pager #[phone]. Nutrition Support: TPN Medication Recent History (Show up to 3 orders; newest on the left. Changes between the two mostrecent orders are indicated.) Start date and time 11/06/2021 1800 11/05/2021 1800 11/04/2021 1800 TPN Adult [[id number]] TPN Adult [[id number]] TPN Adult [[id number]] Order Status Active Last Dose in Progress Completed Last Admin New Bag at 11/05/2021 1753 by Cande Beck RN New Bag at 11/04/2021 1745 by Micki Greco RN Frequency Continuous (1800) Continuous (1800) Continuous (1800) Additives adult multivitamin 5 mL 5 mL 5 mL adult trace elements Zn-Cu-Mn-Se (Tralement) 0.5 mL 0.5 mL 0.5 mL folic acid 400 mcg 400 mcg 400 mcg Vit E2-M0-S9-B5-B6 (B Complex) 1 mL 1 mL 1 mL Electrolytes potassium phosphate 22 mmol 20 mmol 20 mmol potassium chloride 76 mEq 60 mEq 40 mEq sodium chloride 80 mEq 80 mEq 46 mEq sodium acetate 142 mEq 142 mEq 140 mEq calcium gluconate 8 mEq 8 mEq 8 mEq magnesium sulfate 32 mEq 32 mEq 32 mEq Dextrose dextrose 70% 206 g 176 g 147 g Amino Acids amino acid 15% no.5 (ClinisoL) 110 g 100 g 100 g QS Base sterile water 1,517.41 mL 1,635.57 mL 1,250.47 mL Lipid fat emulsion (Intralipid) 30 % 50 g 50 g 40 g Energy Contribution Proteins 440 kcal 400 kcal 400 kcal Dextrose 700.43 kcal 598.33 kcal 499.8 kcal Lipids 501 kcal 501 kcal 399 kcal Total 1,641.43 kcal 1,499.33 kcal 1,298.8 kcal Electrolyte Ion Calculated Amount Sodium 222 mEq 222 mEq 186 mEq Potassium 108.27 mEq 89.33 mEq 69.33 mEq Calcium 8 mEq 8 mEq 8 mEq Magnesium 32 mEq 32 mEq 32 mEq Aluminum -- -- -- Phosphate 24.5 mmol 22.51 mmol 22 mmol Chloride 156 mEq 140 mEq 86 mEq Acetate 235.13 mEq 226.67 mEq 224.67 mEq Chloride: Acetate Ratio 0.665 0.62 0.385 Trace Elements Copper 0.15 mg 0.15 mg 0.15 mg Manganese 27.5 mcg 27.5 mcg 27.5 mcg Selenium 30 mcg 30 mcg 30 mcg Zinc 1.5 mg 1.5 mg 1.5 mg Other Total Amino Acid 110 g 100 g 100 g Total Amino Acid/kg 1.06 g/kg 0.97 g/kg 0.98 g/kg Glucose Infusion Rate 1.38 mg/kg/min 1.18 mg/kg/min 0.99 mg/kg/min Osmolarity 1,008.39 908.38 980.17 Volume 2,880 mL 2,880 mL 2,400 mL Rate 120 mL/hr 120 mL/hr 100 mL/hr Dosing Weight 104 kg 103.3 kg 102.5 kg Infusion Site [facility] Total Multi-vitamins 5 mL 5 mL 5 mL Lab Results Component Value Date NA 143 11/06/2021 K 3.6 11/06/2021 CL 108 (H) 11/06/2021 CO2 23 11/06/2021 BUN 34 (H) 11/06/2021 CREATININE 1.00 11/06/2021 ESTGFR 81 11/06/2021 MAGNESIUM 0.90 11/06/2021 CALCIUM 8.6 11/06/2021 PHOS 2.8 11/06/2021 AST 16 11/02/2021 ALT 41 11/02/2021 ALKPHOS 121 11/02/2021 BILITOT 0.4 11/02/2021 BILIDIR 0.2 11/02/2021 TRIG 171 07/13/2021 HA1C 4.8 07/13/2021 [id number] 1,799 (H) 08/01/2021 SFOLATE 5.6 08/01/2021 IRON [...] Injury Device Sites: O2 sat monitor, IV sites, ECG Leads Other Sites: ostomy, R DL PICC, L TL tunneled line, SL mediport Relevant medications: BMX, imodium (not given), protonix, caphosol, prograf, zofran prn Last Bowel Movement: 11/05/21 Intake/Output Summary (Last 24 hours) at 11/06/2021 0939 Last data filed at 11/06/2021 0700 Gross per 24 hour Intake 5770 ml Output 4350 ml Net 1420 ml Admit Weight: 107.1 kg Estimated body mass index is 33.2 kg/m?? as calculated from the following: Height as of this encounter: 177 cm (5' 9.69). Weight as of this encounter: 104 kg (229 lb 4.5 oz). Anton Body Weight: 74.6 kg Usual Body Weight: 235 lbs per pt Wt Readings from Last 10 Encounters: 11/06/21 104 kg (229 lb 4.5 oz) 10/15/21 107.8 kg (237 lb 9.6 oz) 10/04/21 107.2 kg (236 lb 6.4 oz) 09/27/21 109 kg (240 lb 6.4 oz) 09/16/21 105.9 kg (233 lb 6.4 oz) 09/12/21 106.6 kg (235 lb) 09/09/21 102.8 kg (226 lb 9.6 oz) 09/05/21 106.8 kg (235 lb 6.4 oz) 08/26/21 102.8 kg (226 lb 9.6 oz) 08/19/21 100.2 kg (221 lb) Patient Vitals for the past 168 hrs: Weight 11/06/21 0356 104 kg (229 lb 4.5 oz) 11/05/21 1559 104.7 kg (230 lb 13.2 oz) 11/05/21 0320 103.3 kg (227 lb 11.8 oz) 11/04/21 1719 103.3 kg (227 lb 11.8 oz) 11/04/21 0410 102.5 kg (225 lb 15.5 oz) 11/03/21 1520 102.8 kg (226 lb 10.1 oz) 11/03/21 0400 102.3 kg (225 lb 8.5 oz) 11/02/21 1618 103.1 kg (227 lb 4.7 oz) 11/02/21 0353 103.1 kg (227 lb 4.7 oz) 11/01/21 1705 102.9 kg (226 lb 13.7 oz) 11/01/21 0430 102.4 kg (225 lb 12 oz) 10/31/21 1647 102.3 kg (225 lb 8.5 oz) 10/31/21 0529 102 kg (224 lb 13.9 oz) Assessment: Estimated needs: Calories: 1865 (25 kcal/kg IBW) Protein: 89-112 grams (1.2-1.5 g/kg IBW) Nutrition Focused Physical Exam (NFPE): Performed on 10/28/21. Subcutaneous fat loss at Orbital region: None present Upper arm region (triceps/biceps): None present Thoracic and lumbar region (ribs, lower back and maxillary line): Not assessed Lean muscle loss to Orthodoxy region (temporalis muscle): None present Clavicle bone region (pectoralis major): None present Dorsal hand (interosseous muscle): None present Shoulder (deltoid): None present Scapular bone region (latissimus dorsi, trapezius muscles): Not assessed Thigh region (quadriceps muscle): None present Posterior calf region (gastrocnemius muscle): None present Fluid accumulation: Not assessed Nutrition intake and intake history/Interview: 60mEq of KCl repletion noted yesterday. 11/04: Luis Manuel reported a poor appetite today, not taking solids d/t mucositis and primarily taking in water as fluids, gatorade at bedside. Ileostomy output high, although per pt output is stable. Continue to monitor wt, below reported UBW. Protein-calorie Malnutrition: Not enough data to assess (Alis et al, JPEN J Parenteral Enteral Nutr. 2011; 36(3): 273-83) Nutrition to continue to follow up while inpatient. Thank you, Claudia Claros RD Pager #:[phone] Khloe Richardson MD - 11/06/2021 9:19 AM EDT HEMATOLOGY STAFF ADDENDUM I have independently interviewed and examined this patient and have personally reviewed the relevantclinical, laboratory and radiological data with the housestaff on rounds. Please refer to the comprehensive progress note above, with which I concur. I have reviewed and endorse the plan as outlined and have made any additions/corrections below. This patient meets criteria for inpatient level of care based on the above medical complexity. 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 Pretransplant course marked by dev't of C difficile colitis with toxic megacolon, s/p [id number]-[id number], with ostomy, then dev't of 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 ?? Day +15 today. Overall, he is doing OK. Continues to be active ! Wt below admit wt; Net + 865ml/24hr. Able to take all PO meds. Had tunneled catheter removed yesterday. # Mucositis - on morphine prn. Received only 2 doses of morphine 2mg. Does not like to take narcotics. Agreed to schedule narcotics with comment OK to refuse. - Most meds switched to IV. - TPN; continue supportive measures. # ID: VRE bacteremia : noted on Bl Cx from 11/02; Rpt Cx on 11/03 growing GPC and Corynebacterium. - Getting ECHO per ID - On cefepime, daptomycin. - On Acyclovir and fluconazole ppx??; On oral Vanc for C. Diff ppx? # Pancytopenia - 2ry to chemo. - on Zarxio?and prn transfusions.? # GVHD ppx??- On Tacrolimus 0.7mg IV BID . T ac level 11/04 - 7.8. # VOD ppx - on Ursodiol ; lovenox ??c'ed last week for oral bleeding. ? # GI , Ostomy - C. Diff neg. - Stool output still 1500ml ; took 2 doses of imodium. Will increase imodium to Q6hr prn. I reviewed his situation and our plans with the team, RN and pt on rounds today. Central Venous Access Statement of Need Tunneled catheter - clean dry intact site Can the central IV access be removed? [ Yes [x ] No [ ] N/A If no, reason for central access: [X] Stem cell transplant patient or AML induction Khloe Richardson MD Hematology Staff physician Pager: [phone] 11/06/21 Stacy Marin MD - 11/06/2021 7:55 AM EDT Images from the original note were not included. Inpatient Hematology/Oncology/SCT Progress Note Patient info: Name: Luis Manuel Mobley Jr. : 1960 PCP: LEISA Munguia PCP phone number: [phone] Date of Admission: 10/15/2021 ( Hospital Day 22 days ) Service: Hem/Onc Team A pg [id number] (09/03) Responsible Attending:Khloe Richardson MD ID: Luis Manuel Mobley Jr. is a 61 y.o. 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 Baseline weight: 107.1kg Donor: MUD ABO: Donor O negative, recipient O positive HLA: 05/26 ID status: Donor and recipient both CMV negative Conditioning regimen: fludarabine, busulfan GVHD regimen: Rabbit ATG, methotrexate, tacrolimus 24 Hour Events: - Yesterday, morphine x 1 with good effect, echo ordered, repeat BCx drawn - Overnight, able to take all po meds, no platelet given due to severe platelet shortage - This Am, appears to be in good spirit, reports will try to eat some today - Weight: 103.3 -> 104kg - afebrile, - In/Out: + 865 (stool 1550, TPN 2732, IV 1742) - Mg 0.9, repleting - BCx 11/03: 1/2 Corynebacterium species - BCx 11/05: pending - f/u ECHO today Vitals: Last value Range last 24 hrs Temperature Temp: 37.1 ??C (98.8 ??F) Temp: [36.8 ??C (98.2 ??F)-38 ??C (100.4 ??F)] Heart Rate Heart Rate: 74 Heart Rate: [74-87] Blood Pressure BP: 142/83 BP: (138-158)/(78-90) Respiratory Rate Resp: 18 Resp: [18-22] SpO2 SpO2: 97 % SpO2: [91 %-100 %] Intake/Output Summary (Last 24 hours) at 11/06/2021 1401 Last data filed at 11/06/2021 1258 Gross per 24 hour Intake 4491 ml Output 4550 ml Net -59 ml Patient Vitals for the past 168 hrs: Weight 11/06/21 0356 104 kg (229 lb 4.5 oz) 11/05/21 1559 104.7 kg (230 lb 13.2 oz) 11/05/21 0320 103.3 kg (227 lb 11.8 oz) 11/04/21 1719 103.3 kg (227 lb 11.8 oz) 11/04/21 0410 102.5 kg (225 lb 15.5 oz) 11/03/21 1520 102.8 kg (226 lb 10.1 oz) 11/03/21 0400 102.3 kg (225 lb 8.5 oz) 11/02/21 1618 103.1 kg (227 lb 4.7 oz) 11/02/21 0353 103.1 kg (227 lb 4.7 oz) 11/01/21 1705 102.9 kg (226 lb 13.7 oz) 11/01/21 0430 102.4 kg (225 lb 12 oz) 10/31/21 1647 102.3 kg (225 lb 8.5 oz) 10/31/21 0529 102 kg (224 lb 13.9 oz) Exam: GENERAL:?appeared in no acute distress, sleeping MOUTH: blood noted at posterior oropharynx, diffuse inflammation and blood in oral mucosa CARDIOVASCULAR:??rrr no mrg PULMONARY:??CTAB on RA, no increased wob GASTROINTESTINAL:??Abdomen soft nontender to palpation w +BS. Colostomy with brown watery stool in place. SKIN:??No rashes, bruises or petechiae. ?? EXT: no Edema at ankles NEUROLOGICAL:??Alert and oriented to person, place and time. No focal deficits Medications: Scheduled Meds: ??? loperamide 2 mg Oral Q6H ??? morphine 4 mg Intravenous Q4H ??? DAPTOmycin 10 mg/kg/dose (Adjusted) Intravenous Q24H ??? ceFEPime 2 g Intravenous Q8H ??? metoprolol succinate XL 50 mg Oral Daily ??? ursodiol 300 mg Oral Daily with breakfast ??? ursodiol 600 mg Oral Daily with dinner ??? pantoprazole 40 mg Intravenous BID ??? acyclovir 250 mg/m2/dose (Anton) Intravenous Q12H ??? fluconazole 400 mg Intravenous Q24H ??? tacrolimus 0.7 mg Intravenous 2 times per day ? ? ofmehsfow-uknwecjlf-hi-mag-sim 5 mL Oral 4 Times Daily AC & HS ??? gabapentin 200 mg Oral TID ??? sodium chloride 0.9 % (flush) 5 mL Intravenous BID ??? vancomycin 125 mg Oral BID ??? flecainide 50 mg Oral BID ??? supersaturated calcium phosphate 30 mL Oral 4 Times Daily ??? [START ON 11/21/2021] sulfamethoxazole-trimethoprim DS 1 tablet Oral Daily ??? filgrastim-sndz 600 mcg Subcutaneous Daily Continuous Infusions: ??? TPN Adult ??? TPN Adult 120 mL/hr at 11/05/21 1753 PRN Meds:.lidocaine, sodium chloride 0.9 % (flush), magnesium sulfate, magnesium sulfate, potassium chloride, potassium chloride ER, potassium chloride ER, acetaminophen, camphor-menthoL, loperamide, alum-mag hydroxide-simeth, calcium carbonate, sucralfate, furosemide, furosemide, sodium chloride 0.9 % (flush), lidocaine, LORazepam, ondansetron, prochlorperazine, heparin, porcine, sodium chloride 0.9% (flush) Labs: Recent Labs 11/06/21 0315 11/05/21 1710 11/05/21 0305 11/04/21 1450 11/04/21 0340 WBC 0.0* -- 0.0* -- 0.0* HGB 7.4* -- 6.7* -- 5.9* HCT 20.6* -- 18.4* -- 16.8* PLATELET 9* 14* 13* < > 13* < > = values in this interval not displayed. ANC 0 Recent Labs 11/06/21 0315 11/05/21 0305 11/04/21 0340 NA 143 144 140 K 3.6 3.4* 3.4* CL 108* 107 108* CO2 * BUN 34* 36* 36* CREATININE 1.00 1.23 1.35 Recent Labs 11/06/21 0315 11/05/21 0305 11/04/21 0340 CALCIUM 8.6 8.6 8.8 MAGNESIUM 0.90 0.91 0.85 PHOS 2.8 3.0 2.5 Recent Labs 11/02/21 0350 10/31/21 0415 AST 16 18 ALT 41 42 ALKPHOS 121 118 BILITOT 0.4 0.3 BILIDIR 0.2 0.1 No results for input(s): INR, PT, PTT in the last 72 hours. Microbiology: BCx 11/05: pending BCx 11/03: 1/2 Corynebacterium species BCx 11/02: VRE UA 11/03: unremarakble BCx 10/20: NGTD UA 10/20: does not look infectious Microbiology Results (Last 30 days) Procedure Component Value Units Date/Time Blood culture [[id number]] Collected: 11/03/21 0408 Lab Status: Preliminary result Specimen: Blood Updated: 11/06/21 0701 Blood Culture No growth at 3 days. Blood culture [[id number]] (Abnormal) Collected: 11/03/21 0356 Lab Status: Preliminary result Specimen: Blood Updated: 11/06/21 1057 Blood Culture -- Corynebacterium species isolated : Interpretation of the importance of skin mitzy such as Coagulase Negative Staph, Viridans Strep, Corynebacteria and other Gram Positive organisms from a single Blood Culture set requires clinical correlation. Gram Stain Aerobic -- Note: This is a corrected report Growth detected in aerobic bottle. Gram Positive Rods seen Previously reported as: Gram Positive Cocci seen Results called to and read back by Denise Madera RN at 11/06/21 10:57:10 Blood culture [[id number]] (Abnormal) (Susceptibility) Collected: 11/02/21 1018 Lab Status: Final result Specimen: Blood Updated: 11/05/21 1124 Blood Culture -- Enterococcus faecium isolated * VRE, Vancomycin Resistance * Isolate saved. If future testing is required, contact the Microbiology Industrial Organizational Psychologist. Gram Stain Aerobic -- Growth detected in aerobic bottle. Gram Positive Cocci in pairs seen Gram Stain Anaerobic -- Growth detected in anaerobic bottle. Gram Positive Cocci in pairs seen Results called to and read back by Radha Marmolejo 11/03/21 02:42:51 VMartin Susceptibility Enterococcus faecium MICROSCAN METHOD Ampicillin Resistant Erythromycin Resistant Gentamicin 500 Sensitive Linezolid Sensitive Penicillin Resistant Vancomycin Resistant Linear View Blood culture [[id number]] (Abnormal) Collected: 11/02/21 1018 Lab Status: Final result Specimen: Blood Updated: 11/05/21 1125 Blood Culture -- Enterococcus faecium isolated * VRE, Vancomycin Resistance * Susceptibilities previously reported Gram Stain Anaerobic -- Growth detected in anaerobic bottle. Gram Positive Cocci in pairs seen Gram Stain Aerobic -- Growth detected in aerobic bottle. Gram Positive Cocci in pairs seen C. Difficile Screen [[id number]] Collected: 10/28/21 1207 Lab Status: Final result Specimen: Stool Updated: 10/28/21 1334 C Diff Screen Negative Comment: Ag/Tox Neg C. diff?? Negative Clostridium difficile is not present in the specimen. If patient is having diarrhea suspected to be from an infectious cause, then Soap & Water Contact Precautions are still required. Blood culture [[id number]] Collected: 10/20/21 1732 Lab Status: Final result Specimen: Blood Updated: 10/25/21 2301 Blood Culture No growth at 5 days. Blood culture [[id number]] Collected: 10/20/21 1732 Lab Status: Final result Specimen: Blood Updated: 10/25/21 2301 Blood Culture No growth at 5 days. Blood culture [[id number]] Collected: 10/19/21 1139 Lab Status: Final result Specimen: Blood from Antecubital, Left Updated: 10/24/21 1501 Blood Culture No growth at 5 days. Blood culture [[id number]] (Abnormal) Collected: 10/19/21 1133 Lab Status: Final result Specimen: Blood from Hand, Right Updated: 10/25/21 0910 Blood Culture -- Coagulase negative Staphylococcus species detected by PCR Interpretation of the importance of skin mitzy such as Coagulase Negative Staph, Viridans Strep, Corynebacteria and other Gram Positive organisms from a single Blood Culture set requires clinical correlation. Gram Stain Aerobic -- Growth detected in aerobic bottle. Gram Positive Cocci in clusters seen C. Difficile Screen [[id number]] Collected: 10/19/21 1020 Lab Status: Final result Specimen: Stool Updated: 10/19/21 1607 C Diff Screen Negative Comment: Ag/Tox Neg C. diff?? Negative Clostridium difficile is not present in the specimen. If patient is having diarrhea suspected to be from an infectious cause, then Soap & Water Contact Precautions are still required. COVID-19 PCR [[id number]] Collected: 10/19/21 0405 Lab Status: Final result Specimen: Nasopharyngeal Swab Updated: 10/19/21 1834 SARS-CoV-2 RNA Not Detected Comment: This result should be interpreted in combination with the clinical observations, patient history and epidemiological information in making a final diagnosis. For testing of asymptomatic individuals, assay performance characteristics and clinical utility have not been evaluated. Testing for SARS-CoV-2 (Severe acute respiratory syndrome coronavirus 2, formerly known as 2019 novel coronavirus or 2019-nCoV) to aid in the diagnosis of COVID-19 is performed using the [employer] m SARS-CoV-2 Assay as authorized by the FDA Emergency Use Authorization (EUA). This EUA assay is intended for In-vitro Diagnostic (IVD) use with respiratory specimens such as nasopharyngeal swabs collected from individuals during the acute phase of infection. This assay is performed based on the instructions for use provided by [employer] and additional guidance provided by CDC and FDA. Testing is performed in the [facility] within the Department of Pathology and Laboratory Medicine at [facility], certified under the Clinical Laboratory Improvement Amendments of 1988 (CLIA), 42 U.S.C. 263a, to perform high complexity tests. Assay performance has been verified according to clinical laboratory regulatory requirements for use with specimens collected from individuals suspected of COVID-19. Test results are provided above. A result of Not Detected indicates that the viral RNA target is not present above the limit of detection, but does not preclude SARS-CoV-2 infection. False negative results may occur if a specimen is improperly collected, transported or handled; if amplification inhibitors are present; or if inadequate numbers of viral particles are present in the specimen. When a diagnostic test is negative, the possibility of a false negative result should be considered in the context of a patient's recent exposures and the presence of clinical signs and symptoms consistent with COVID-19. A result of Detected indicates that RNA from SARS-CoV-2 was detected and the patient is infected. As required or requested by public health authorities, positive specimens may be sent for additional testing. Positive and negative predictive values for this test are highly dependent on disease prevalence. A result of Invalid indicates that neither the viral RNA targets nor the internal control target was detected. An invalid result suggests the presence of inhibitors. Recollection and re-testing is recommended in the case of an invalid result. CDC COVID-19 criteria for testing on human specimens and clinical management guidance information are available at the CDC Coronavirus Disease 2019 (COVID-19) webpage under Information for Healthcare Professionals (https://www.cdc.gov/coronavirus/2019-ncov/hcp/index.html) Additional information about this and other EUA tests can be found in provider and patient fact sheets at the following FDA website: https://www.fda.gov/medical-devices/pemdraydlgu-ippineb-7130-itqpd-89-axsvnnyqz- hfq-ifxjimofgqikfq-cruorlu-devices/ssems-pkhlyxznefs-icax SARS-Cov-2 RNA Source ULTRASOUND SPEC Swab COVID-19 PCR [[id number]] Collected: 10/15/212032 Lab Status: Final result Specimen: Nasopharyngeal Swab Updated: 10/16/21 0004 SARS-CoV-2 RNA PCR Not Detected Comment: This result should be interpreted in combination with the clinical observations, patient history and epidemiological information. For testing of asymptomatic individuals, assay performance characteristics and clinical utility have not been evaluated. Testing for SARS-CoV-2 (Severe acute respiratory syndrome coronavirus 2, formerly known as 2019 novel coronavirus or 2019-nCoV) to aid in the diagnosis of COVID-19 is performed using the [employer]plex[employer] COVID-19 Direct Assay by [employer] as authorized by the FDA issued Emergency Use Authorization (EUA). This assay is intended for In-vitro Diagnostic (IVD) use with nasopharyngeal swabs collected from individuals meeting the CDC criteria for testing. The assay is performed based on the instructions for use and additional guidance provided by the FDA. Testing is performed in the Microbiology Laboratory within the Department of Pathology and Laboratory Medicine at [facility], certified under the Clinical Laboratory Improvement Amendments of 1988 (CLIA), 42 U.S.C. section 263a, to perform high complexity tests. Assay performance has been verified according to clinical laboratory regulatory requirements. Test results are provided above. A result of Not Detected indicates that the viral RNA target is not present but does not preclude SARS-CoV-2 infection. False negative results may occur if a specimen is improperly collected, transported or handled; if amplification inhibitors are present; or if inadequate numbers of viral particles are present in the specimen. A result of Detected suggests a current or recent infection and the patient is presumed to be infected. Positive and negative predictive values for this test are highly dependent on disease prevalence. A result of Invalid indicates the inability to conclusively determine the presence or absence of SARS-CoV-2 RNA in the sample which can be due to a variety of factors. Recollection is recommended in the case of an invalid result. CDC COVID-19 criteria for testing on human specimens and clinical management guidance information are available at the CDC Coronavirus Disease 2019 (COVID-19) webpage under Information for Healthcare Professionals (https://www.cdc.gov/coronavirus/2019-ncov/hcp/index.html). Additional information about this and other EUA tests can be found in provider and patient fact sheets at the following FDA website: https://www.fda.gov/medical-devices/picjlynznwx-akhazcw-8876-cmpci-70-dqscvhhot- klr-oiimoycpneogbl-aqcwaqb-devices/lzfvl-qagzzxrkjii-tkhz SARS-CoV-2 Source ULTRASOUND SPEC Swab Pertinent radiology/diagnostic studies: CT A/P w contrast 11/03 ?? IMPRESSION ?? 1. Ill defined opacities in lingula may represent pneumonia. Consider follow-up chest x-ray if indicated. 2. No abdominal or pelvic abscess seen. 3. Hiatal hernia with fat stranding around a thick walled and dilated distal esophagus. Finding may represent esophagitis. 4. Resolution of splenomegaly. 5. No enlarged abdominal and pelvic lymph nodes. 6. No abdominal or pelvic ascites. CXR 11/04 ?? IMPRESSION Radiographically the left basilar airspace opacity seen on 11/02/2021 has resolved and findings are now similar compared to a radiograph from 10/19/2021. However, it is uncertain to which extent the mild opacities seen on CT 11/03/2021 still persist or have resolved (due to difference in technique). ?? Within the limitation of single frontal view the change in positioning of the left subclavian central venous catheter in comparison to 10/19/2021 is due to the fact that the tip has flipped into the azygos vein (unchanged to 11/02/2021). Please correlate clinically if functionalityof this catheter remains adequate. TTE 11/06 1. There are no vegetations seen on this study, if clinical suspicion for endocarditis remains, consider OLEKSANDR for further evaluation 2. Left ventricle is normal in size. LVEF is estimated at 64% by biplane. There are no wall motion abnormalities. 3. Right ventricle is milldly dilated with normal systolic function. 4. There is no pericardial effusion. ?? ASSESSMENT/PLAN: Luis Manuel Mobley Jr. is a 61 y.o. 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 now day + 15 (day 0 is 10/22) for MUD HSCT. Tolerated stem cell infusion well on 10/22, had some rigors and nausea post- infusion that resolved with medications. Counts remain low. Neutropenic fever on 11/02, cefepime escalated to zosyn, and then todaptomycin and cefepime after 1 day when BCx positive for VRE. TTE on 10/09 with no vegetation. Tunneled line removed 11/05. Plan for total of 2 weeks of daptomycin from 1st neg BCx until 11/17, and continue cefepime and fluconazole until ANC >500. CT A/P on 11/03 w contrast did not show abdominal infection but did show esophagitis as well as GGO in lingula, which was not observed in repeat CXR. Patient's high ostomy output (2-3L per day) initially improved with scheduled imodium. However, now unable to take po meds. Will hold off giving IVF b/c getting TPN. Lovenox stopped on 11/02 due to hemepositive stool and severe mucositis. For mucositis, on bmx, viscous lidocaine, morphine prn (dilaudid causes nausea). Started TPN on 10/31. Transitioned PO medication to IV as able. On Tele b/c intermittently unable to take flecainide and mtop. For his bilateral feet neuropathy, will continue gabapentin to 200mg TID as tolerated Summary Plan: - f/u BCx 11/05 - TTE 11/06 no vegetation seen - continue tele (until can take all po meds ervin flecanide and metop) - plan for dapto until 11/17 - continue cefepim and fluconzaole until ANC > 500 - schedule IV morphine 4mg q4h - no auto electrolyte repletion prn b/c on TPN - continue morphine prn - continue IV tac 0.7mg bid - monitor ostomy output - continue zarxio from day +7 to when ANC > 1500 - monitor I/O and daily weights - tacrolimus level Thursday and - f/u weekly thursday CMV - f/u Thursday EBV every 2 weeks ?? Plan: #VRE bacteremia #Neutropenic fever - likely from gut translocation from mucositis - ID signed off - abx: - cefepime 10/19 - 11/02, 11/03 - p - zosyn 11/02 - daptomycin 11/02 - 11/17 - BCx 11/03: 1/2 Corynebacterium species (likely contaminant) - f/u BCx 11/05 #STACIE, pre-renal, improving - pre-renal, noted on 10/27 - s/p 1L Bolus on 10/27 and 10/28, encourage imodium to thicken ostomy output - mIVF (10/29 -> 11/01) - continue to monitor, on TPN so no IVF #AML #MUD HSCT Day (-7): Fludarabine: Day (-6): Fludarabine, Busulfan, Rabbit ATG: Day (-5): Fludarabine, Busulfan, Rabbit ATG: Day (-4): Fludarabine, Busulfan, Rabbit ATG: Day (-3): Fludarabine, Busulfan: Day (0): Stem Cell Infusion: Day (+1): metHOTREXate: Day (+3): metHOTREXate: Day (+6): metHOTREXate: Day (+11): metHOTREXate: General - q4h vitals - strict Is/Os 2x daily - weigh patient 2x daily, notify provider if weight increases by 1kg or more in 12 hour period ?- lasix 20mg IV prn weight gain >1 kg above admission baseline ?- lasix 20mg IV for weight gain 1 kg over 12 hours or input exceeding output by greater than 1,000 ml/12h - neutropenic precautions - incentive spirometry q2h while awake - activity as tolerated - electrolyte replacement Chemotherapy/Support - Busulfan 204mg??day (-6) to day (-3) -??Fludarabine??61??mg 102ml infusion once over 30 minutes day -7 Then every 24 hours at 0900 for 4 doses day (-6) to day (-3) - Rabbit ATG??124.8mg over 10 hours day (-6), 166.4mg on day (-5) 208??on day (-4).?? - Day 0 stem cell infusion. Premedicate with acetaminophen 650mg, diphenhydramine 50mg) - Methotrexate??10mg??day (+1), day (+3), day (+6), day (+11). Hold for serum creatinine >2, bilirubin >5, fluid accumulation (large effusion or ascites), severe mucositis if potential need for intubation. - filgrastim??600mcg qd starting day (+7) until ANC >1500 ?? Laboratory Monitoring - weekly CMV PCR starting day +10, then weekly thereafter - IgG every 2 weeks starting day +1 to day +100 - U/A s/ reflex culture on admission, then daily on days -2, -1, 0? Transfusion parameters - Hgb <??7 - PLT <10, or if febrile??or bleeding??<20 - keep active T&S once hgb <8 ?? Prophylaxis Seizure ppx ?-phenytoin 300 day (-6) through (-1) - GI ppx ?- pantoprazole 40mg qd - mucositis ppx ?- supersaturated calcium phosphate oral solution 30ml 4x daily starting on admission until resolution of mucositis and ANC ?>500 - infection ppx ?- fluconazole 400mg qd starting day (0) ?- levofloxacin 750mg qd starting day (0) until ANC >500, changed tocefepime due to fever on 10/19 ?- acyclovir 800mg bid starting day (-7) ?- bactrim DS 1 tablet daily from day (-7) through day (-2) ?- bactrim DS 1 tablet MWF starting day (30) - GVHD ppx?-??Tacrolimus??0.7mg IV bid?? - Started day (-2),?target 5-10 trough - VOD ppx ?- lovenox 40mg qd day (-7) through (+30) per Dr. Modi's note, he should continue lovenox 100mg qd until plt apx <40 then switch to VOD ppx dose. ?- ursodiol 300mg qAM??&??qPM day (-7) through day (+30) Hydration - NaCl 0.9% continuous??150ml/hr x??day (-6) ??Through (-3) ?? Pain/Nausea/Appetite - avoid acetaminophen through??day??(-3) - avoid steroid antiemetics - palonosetron 0.25mg day (-6) - aprepitant 130mg day (-6) prior to??busulfan - lorazepam 0.5mg IV q4h prn nausea, anxiety - ondansetron??8mg q8h prn nausea, vomiting beginning day (-3) - prochlorperazine 10mg IV q6h prn nausea, vomiting - use ondansetron >??prochlorperazine or promethazine >??lorazepam >??metoclopramide - olanzapine 5mg qhs starting day (-3) for 5 doses?? - dilaudid prn (10/31 - p) ?? #Fever, neutropenic - 102.9 10/19 - 100.8 11/02 - CXR benign - C. Diff negative - UA unremarkable - BCx 10/20 negative - BCx 11/02 pending - Zosyn 11/02 - cefepime 10/19 - 11/02, 11/03 - p - vanc 10/20 - 10/22 - daptomycin 11/02 - p #Paroxysmal Afib - Continue home metoprolol, flecainide - Tele ?? #Hx of provoked PE in Apr 2021 - On lovenox 100mg qd (held prior to central line placement) - Continue until plt reach approximately 40 followed by switch to prophylactic dosing - may not need upon discharge b/c s/p 3 months of AC ?? #Hx of C diff colitis - Continue home PO vancomycin as tolerated - Ostomy care #Bilateral Feet tingling - pt reports having baseline bilateral feet tingling that was noted to be worsened on on 10/21 (2 daysafter completing 5 days of fludarabine), strength intact, no loss of sensation - start gabapentin 100mg TID (10/21 - 10/23), 200mg TID (10/23 - p) #GERD - takes protonix at home - current regimen: protonix bid, carafate, tums, famotidine #Pancytopenia 2/2 to chemo and disease - continue to monitor, transfuse as needed for support #Routine DVT PPx: VOD ppx lovenox 40mg stopped on 11/02 (holding home dose 100mg) Diet: Neutropenic (BMT) diet Dispo: [place] CODE STATUS: Attempt Cardiopulmonary Resuscitation - Inpatient Stacy Marin MD PGY1 Internal Medicine 11/06/2021 Heme/Onc/BMT Team A Pager #[phone] Narcisa Suggs RN - 11/06/2021 5:46 AM EDT Patient Summary Reason for admission: Day +15 (11/06) of 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 Significant 24 hour events: 11/05 AM: Mucositis pain 2-4/10 today; PRN Morphine given with good effect. Continues on scheduled BMX and viscous lidocaine; pt using intermittently. Poor PO intake; continues on TPN. Zofran given x1 as premedication for pills with success; pt denied nausea the remainder of the day. 1 unit of PRBCs and 1 unit of platelets administered without issue. Tunneled line removed by IR. Potassium and magnesium replaced. 11/05 PM: Afebrile, tele monitoring continued - NSR. Endorsing 3/10 mouth/throat pain - premedicated with PRN zofran and morphine before pills, able to take all meds. Cefepime and daptomycin administered per OCT, TPN continued. PRN potassium replaced per OCT and OK'ed by MD since pt is on TPN. Plt level 9 -MD notified, no plt given due to severe shortage per MD.Resting between care. 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 [] Pall care (massage therapy) [x] Nutrition [x] Last Flu vaccine: Last Covid Test Result: 10/19/2021 Not Detected 11/02 Positive blood cultures VRE Situational Awareness & Contingency Planning Notify provider if weight increases by 1kg or more in 12 hour period - prn lasix dosing per OCT Cande Beck RN - 11/05/2021 6:40 PM EDT Patient Summary Reason for admission: Day +14 (11/05) of 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 Significant 24 hour events: 11/05 AM: Mucositis pain 2-4/10 today; PRN Morphine given x1 with good effect. Continues on scheduledBMX and viscous lidocaine; pt using intermittently. Poor PO intake; continues on TPN. Zofran given x1 as premedication for pills; pt denied nausea the remainder of the day. 1 unit of PRBCs and 1 unit of platelets administered without issue. Tunneled line removed by IR. Potassium and magnesium replaced. Echo ordered. Will continue to monitor. 11/04 PM: Afebrile, tele monitoring continued - NSR - ST. Around 2230, HR increased 150s-190s, asymptomatic, returned to NSR after 1-2 minutes. Endorsing 3/10 mouth/throat pain - premedicated with PRN zofran and morphine before pills, able to take all meds. Refused BMX and lidocaine rinses. Denied nausea overnight. Cefepime and daptomycin administered per OCT, TPN continued @ 100mL/hr. Resting betweencare. Baseline Weight: 107.1 kg AM weight: 103.3 kg PM weight: 104.7 kg Action List TPN Pre-medicate for pain and nausea for po medications Telemetry monitoring CHG line only Ostomy care, monitor output Aracely Greco MD - 11/05/2021 1:38 PM EDT Infectious Disease Service - Follow-Up Note Active ID Issue(s): - Sustained VRE bacteremia - Neutropenic fever, now improved Interval Updates: Blood Cxs from 11/03 came back with a positive Gram stain but have revealed no growth so far. Fever curve has improved over the past 24 hours. While he underwent placement of RUE PICC line yesterday, his L chest wall SBCC has not yet been removed. Antimicrobials: Cefepime (10/19-) Daptomycin (11/02-) Prophylaxis: Acyclovir Fluconazole PO Vancomycin Medications: ??? potassium chloride 20 mEq in sterile water 100 mL infusion ??? magnesium sulfate 2 g in sterile water 50 mL infusion ??? TPN Adult ??? TPN Adult ??? sodium chloride 0.9 % (flush) (BD PosiFlush Normal Saline 0.9) flush 10 mL ??? DAPTOmycin (Cubicin) 845 mg in sodium chloride 0.9% 66.9 mL ??? ceFEPime (Maxipime) 2g vial attach to sodium chloride 0.9% 100 mL Mini-Bag Plus 2 g ??? metoprolol succinate XL (Toprol-XL) tablet 50 mg ??? morphine (2 mg/mL) injection 2 mg OR morphine (4 mg/mL) injection 4 mg OR morphine (2 mg/mL) injection 6 mg ??? lidocaine (Xylocaine) 2 % viscous solution 15 mL ??? magnesium sulfate 2 g in sterile water 50 mL infusion ??? magnesium sulfate 1 g in dextrose 5% 100 mL infusion ??? potassium chloride 20 mEq in sterile water 100 mL infusion ??? potassium chloride ER (K-Dur/Klor-Con) tablet 40 mEq ??? potassium chloride ER (K-Dur/Klor-Con) tablet 20 mEq ??? ursodiol (Actigall) (60 mg/mL) oral liquid 300 mg ??? ursodiol (Actigall) (60 mg/mL) oral liquid 600 mg ??? pantoprazole (Protonix) injection 40 mg ??? acetaminophen (Tylenol) (32.02 mg/mL) oral liquid 975 mg ??? acyclovir (Zovirax) 472.5 mg in sodium chloride 0.9% 259.45 mL infusion ??? fluconazole (Diflucan) 400 mg in sodium chloride 0.9% 200 mL infusion ??? loperamide (Imodium A-D) capsule 2 mg ??? tacrolimus (Prograf) 0.7 mg in dextrose 5% Non-PVC 150.7 mL infusion ??? camphor-menthoL (Sarna) lotion ??? diphenhydrAMINE/aluminum-magnesium hydroxide with simethicone/lidocaine (BMX) (6.67 mg-0.83 mg-13.33 mg-1.33 mg/mL) oral liquid 5 mL ??? loperamide (Imodium A-D) capsule 2 mg ??? alum-mag hydroxide-simeth (Maalox) (40 mg-40 mg-4 mg/mL) oral liquid 10 mL ??? calcium carbonate (Tums) chewable tablet 500 mg ??? sucralfate (Carafate) (100 mg/mL) oral liquid 1 g ??? gabapentin (Neurontin) capsule 200 mg ??? furosemide (Lasix) (10 mg/mL) injection 60 mg ??? furosemide (Lasix) (10 mg/mL) injection 60 mg ??? sodium chloride 0.9 % (flush) (BD PosiFlush Normal Saline 0.9) flush 5 mL ??? sodium chloride 0.9 % (flush) (BD PosiFlush Normal Saline 0.9) flush 5-20 mL ??? lidocaine (Xylocaine) 1% (10 mg/mL) injection 3 mg ??? vancomycin (Vancocin) capsule 125 mg ??? flecainide (Tambocor) tablet 50 mg ??? LORazepam (Ativan) (2 mg/mL) injection 0.5 mg ??? ondansetron (pf) (Zofran) (2 mg/mL) injection 8 mg ??? prochlorperazine (Compazine) (5 mg/mL) injection 10 mg ??? supersaturated calcium phosphate (Caphosol) oral solution 30 mL ??? [START ON 11/21/2021] sulfamethoxazole-trimethoprim DS (Bactrim DS) 800-160 mg per tablet 1 tablet ??? filgrastim-sndz (Zarxio) (300 mcg/0.5 mL) injection 600 mcg ??? heparin (pf) (porcine) (100 units/mL) flush 5 mL syringe 500 Units ??? sodium chloride 0.9 % (flush) (BD PosiFlush Normal Saline 0.9) flush 5-20 mL Vitals: Last value Range last 24 hrs Temperature Temp: 37.1 ??C (98.8 ??F) Temp: [37 ??C (98.6 ??F)-37.8 ??C (100 ??F)] Heart Rate Heart Rate: 78 Heart Rate: [78-191] Blood Pressure BP: 132/77 BP: (132-153)/(73-88) Respiratory Rate Resp: 21 Resp: [16-21] SpO2 SpO2: 98 % SpO2: [93 %-99 %] Physical Exam: General: In no acute distress, resting in bed comfortably, pleasant HEENT: No scleral icterus, erosions present on upper palate consistent with severe mucositis Neck: Supple, trachea midline Pulmonary: Scant crackles at L lung base, no wheezes CV: Regular rate and rhythm, no murmurs Chest: L chest wall SBCC with some surrounding erythema. R chest wall port in place, not accessed. Abdomen: Soft, mildly distended, non-tender to palpation in all quadrants. Midline incision appears well healed, RLQ ostomy with green stool output. Extremities: Trace peripheral edema. RUE PICC in place without surrounding erythema. Skin: No rashes or lesions noted on visible skin Neuro: Alert and oriented, no focal deficits, moving all extremities spontaneously Psych: Normal mood and affect, linear thought process Laboratory: Recent Labs 11/05/21 0305 11/04/21 1450 11/04/21 0340 11/03/21 1335 11/03/21 0415 WBC 0.0* -- 0.0* -- 0.1* HGB 6.7* -- 5.9* -- 6.6* HCT 18.4* -- 16.8* -- 18.3* PLATELET 13* 15* 13* < > 14* < > = values in this interval not displayed. Recent Labs 11/05/21 0305 11/04/21 0340 11/03/21 0415 NA 144 140 140 K 3.4* 3.4* 3.4* CL 107 108* 108* CO2 23 21* 19* BUN 36* 36* 36* CREATININE 1.23 1.35 1.32 Recent Labs 11/02/21 0350 10/31/21 0415 AST 16 18 ALT 41 42 ALKPHOS 121 118 BILITOT 0.4 0.3 BILIDIR 0.2 0.1 Microbiology: 11/03 BCx x2 - GPCs in 1/4 vials 11/02 BCx x2 - VRE in 4/4 vials 10/28 C diff screen - negative 10/20 BCx x2 - NG 10/19 BCx x2 - CoNS in 1/4 vials 10/19 C diff screen - negative 10/19 SARS-CoV-2 PCR - not detected 10/15 SARS-CoV-2 PCR - not detected Radiology/Studies/Procedures: CXR (11/04/2021) Left basilar airspace opacity seen on 11/02/[address] abdomen & pelvis w/ IV contrast (11/03/2021) 1. Ill defined opacities in lingula may represent pneumonia. Consider follow-up chest x-ray if indicated. 2. No abdominal or pelvic abscess seen. 3. Hiatal hernia with fat stranding around a thick walled and dilated distal esophagus. Finding may represent esophagitis. 4. Resolution of splenomegaly. 5. No enlarged abdominal and pelvic lymph nodes. 6. No abdominal or pelvic ascites. Impression: Luis Manuel Mobley Jr. is a 61 y.o. male with Hx of relapsed FLT3+ AML, along with prior Hx of fulminant Cdifficile colitis requiring colectomy in 05/2021, who is admitted for allogeneic HSCT, w/ day 0 = 10/22. On 10/19, he spiked high grade fevers in the setting of downtrending WBC count, and he was started on cefepime w/ subsequent improvement of his fever curve. Blood Cxs on that day revealed growth of CoNS, which was felt to be a contaminant. On 11/02, he spiked recurrent neutropenic fevers, and was notedto have VRE bacteremia. The most likely source is gut translocation in s/o severe mucositis, though his L chest wall SBCC is another potential source. Recommendations: - Continue IV daptomycin 10 mg/kg daily for treatment of VRE bacteremia - F/U surveillance blood Cxs to document clearance - please ensure two sets are collected with AM labs tomorrow - Please remove L chest wall SBCC for source control - Given sustained nature of VRE bacteremia, please obtain TTE to r/o valvular vegetation - Continue IV cefepime 2g q8h for treatment of neutropenic fever, while ANC remains <500 - Continue PO vancomycin 125 mg q12h for secondary CDI prophylaxis - Continue acyclovir and fluconazole for ID prophylaxis, though would switch to oral formulation as appropriate Monitor for toxicity of daptomycin, cefepime, PO vancomycin, acyclovir, fluconazole by checking CBC w/ diff, CMP. Recommendations discussed with primary team. X The Infectious Disease consult service will continue to follow the patient. Do not hesitate to page ID Green team with any further questions or concerns. ID will sign off. Please contact us if further consultation required. Aracely Greco MD Staff Physician in Infectious Diseases Claudia Claros, RD - 11/05/2021 11:18 AM EDT Images from the original note were not included. Nutrition Progress Note Luis Manuel Mobley Jr. is a 61 y.o. 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 Reason for intervention: Follow up and TPN Comments: TPN to provide 176g dextrose, 100g protein, and 50g lipid in 2,880mL. 1/2 NS. Increased K by 20mEq. Increased calories. Increased volume, adjusted Na accordingly. Daily BMP with mag and phos please. Weekly LFTs and TG while on TPN. Monitor wt daily I was able to discuss plan with provider Ian Diaz MD Hem/Onc pager #[phone]. Nutrition Support: TPN Medication Recent History (Show up to 3 orders; newest on the left. Changes between the two mostrecent orders are indicated.) Start date and time 11/05/2021 1800 11/04/2021 1800 11/01/2021 1945 TPN Adult [[id number]] TPN Adult [[id number]] TPN Adult [[id number]] Order Status Active Last Dose in Progress Completed Last Admin New Bag at 11/04/2021 1745 by Micki Greco RN New Bag at 11/03/2021 1728 by Denise Madera RN Frequency Continuous (1800) Continuous (1800) Continuous (1800) Additives adult multivitamin 5 mL 5 mL 5 mL adult trace elements Zn-Cu-Mn-Se (Tralement) 0.5 mL 0.5 mL 0.5 mL folic acid 400 mcg 400 mcg 400 mcg Vit S0-E1-T9-B5-B6 (B Complex) 1 mL 1 mL 1 mL Electrolytes potassium phosphate 20 mmol 20 mmol 15 mmol potassium chloride 60 mEq 40 mEq 28 mEq sodium chloride 80 mEq 46 mEq 46 mEq sodium acetate 142 mEq 140 mEq 140 mEq calcium gluconate 8 mEq 8 mEq 8 mEq magnesium sulfate 32 mEq 32 mEq 28 mEq Dextrose dextrose 70% 176 g 147 g 100 g Amino Acids amino acid 15% no.5 (ClinisoL) 100 g 100 g 100 g QS Base sterile water 1,635.57 mL 1,250.47 mL 1,326.22 mL Lipid fat emulsion (Intralipid) 30 % 50 g 40 g 40 g Energy Contribution Proteins 400 kcal 400 kcal 400 kcal Dextrose 598.33 kcal 499.8 kcal 340.1 kcal Lipids 501 kcal 399 kcal 399 kcal Total 1,499.33 kcal 1,298.8 kcal 1,139.1 kcal Electrolyte Ion Calculated Amount Sodium 222 mEq 186 mEq 186 mEq Potassium 89.33 mEq 69.33 mEq 50 mEq Calcium 8 mEq 8 mEq 8 mEq Magnesium 32 mEq 32 mEq 28 mEq Aluminum -- -- -- Phosphate 22.51 mmol 22 mmol 17 mmol Chloride 140 mEq 86 mEq 74 mEq Acetate 226.67 mEq 224.67 mEq 224.67 mEq Chloride: Acetate Ratio 0.62 0.385 0.33 Trace Elements Copper 0.15 mg 0.15 mg 0.15 mg Manganese 27.5 mcg 27.5 mcg 27.5 mcg Selenium 30 mcg 30 mcg 30 mcg Zinc 1.5 mg 1.5 mg 1.5 mg Other Total Amino Acid 100 g 100 g 100 g Total Amino Acid/kg 0.97 g/kg 0.98 g/kg 0.97 g/kg Glucose Infusion Rate 1.18 mg/kg/min 0.99 mg/kg/min 0.68 mg/kg/min Osmolarity 908.38 980.17 862.87 Volume 2,880 mL 2,400 mL 2,400 mL Rate 120 mL/hr 100 mL/hr 100 mL/hr Dosing Weight 103.3 kg 102.5 kg 102.9 kg Infusion Site [facility] Total Multi-vitamins 5 mL 5 mL 5 mL Lab Results Component Value Date NA 144 11/05/2021 K 3.4 (L) 11/05/2021 CL 107 11/05/2021 CO2 23 11/05/2021 BUN 36 (H) 11/05/2021 CREATININE 1.23 11/05/2021 ESTGFR 63 11/05/2021 MAGNESIUM 0.91 11/05/2021 CALCIUM 8.6 11/05/2021 PHOS 3.0 11/05/2021 AST 16 11/02/2021 ALT 41 11/02/2021 ALKPHOS 121 11/02/2021 BILITOT 0.4 11/02/2021 BILIDIR 0.2 11/02/2021 TRIG 171 07/13/2021 HA1C 4.8 07/13/2021 [id number] 1,799 (H) 08/01/2021 SFOLATE 5.6 08/01/2021 IRON [...] Injury Device Sites: O2 sat monitor, IV sites, ECG Leads Other Sites: ostomy, R DL PICC, L TL tunneled line, SL mediport Relevant medications: BMX, imodium (not given), protonix, caphosol, prograf, zofran prn Last Bowel Movement: 11/05/21 Intake/Output Summary (Last 24 hours) at 11/05/2021 1118 Last data filed at 11/05/2021 1037 Gross per 24 hour Intake 4465.77 ml Output 3925 ml Net 540.77 ml Admit Weight: 107.1 kg Estimated body mass index is 32.97 kg/m?? as calculated from the following: Height as of this encounter: 177 cm (5' 9.69). Weight as of this encounter: 103.3 kg (227 lb 11.8 oz). Anton Body Weight: 74.6 kg Usual Body Weight: 235 lbs per pt Wt Readings from Last 10 Encounters: 11/05/21 103.3 kg (227 lb 11.8 oz) 10/15/21 107.8 kg (237 lb 9.6 oz) 10/04/21 107.2 kg (236 lb 6.4 oz) 09/27/21 109 kg (240 lb 6.4 oz) 09/16/21 105.9 kg (233 lb 6.4 oz) 09/12/21 106.6 kg (235 lb) 09/09/21 102.8 kg (226 lb 9.6 oz) 09/05/21 106.8 kg (235 lb 6.4 oz) 08/26/21 102.8 kg (226 lb 9.6 oz) 08/19/21 100.2 kg (221 lb) Patient Vitals for the past 168 hrs: Weight 11/05/21 0320 103.3 kg (227 lb 11.8 oz) 11/04/21 1719 103.3 kg (227 lb 11.8 oz) 11/04/21 0410 102.5 kg (225 lb 15.5 oz) 11/03/21 1520 102.8 kg (226 lb 10.1 oz) 11/03/21 0400 102.3 kg (225 lb 8.5 oz) 11/02/21 1618 103.1 kg (227 lb 4.7 oz) 11/02/21 0353 103.1 kg (227 lb 4.7 oz) 11/01/21 1705 102.9 kg (226 lb 13.7 oz) 11/01/21 0430 102.4 kg (225 lb 12 oz) 10/31/21 1647 102.3 kg (225 lb 8.5 oz) 10/31/21 0529 102 kg (224 lb 13.9 oz) 10/30/21 0420 101.2 kg (223 lb 1.7 oz) 10/29/21 1522 101.3 kg (223 lb 5.2 oz) Assessment: Estimated needs: Calories: 1865 (25 kcal/kg IBW) Protein: 89-112 grams (1.2-1.5 g/kg IBW) Nutrition Focused Physical Exam (NFPE): Performed on 10/28/21. Subcutaneous fat loss at Orbital region: None present Upper arm region (triceps/biceps): None present Thoracic and lumbar region (ribs, lower back and maxillary line): Not assessed Lean muscle loss to Orthodoxy region (temporalis muscle): None present Clavicle bone region (pectoralis major): None present Dorsal hand (interosseous muscle): None present Shoulder (deltoid): None present Scapular bone region (latissimus dorsi, trapezius muscles): Not assessed Thigh region (quadriceps muscle): None present Posterior calf region (gastrocnemius muscle): None present Fluid accumulation: Not assessed Nutrition intake and intake history/Interview: 11/04: Luis Manuel reported a poor appetite today, not taking solids d/t mucositis and primarily taking in water as fluids, gatorade at bedside. Ileostomy output high, although per pt output is stable. Continue to monitor wt, below reported UBW. Protein-calorie Malnutrition: Not enough data to assess (RAFA Barnes J Parenteral Enteral Nutr. 2011; 36(3): 273-83) Nutrition to continue to follow up while inpatient. Thank you, Claudia Claros RD Pager #:[phone] Khloe Richardson MD - 11/05/2021 9:19 AM EDT HEMATOLOGY STAFF ADDENDUM I have independently interviewed and examined this patient and have personally reviewed the relevantclinical, laboratory and radiological data with the housestaff on rounds. Please refer to the comprehensive progress note above, with which I concur. I have reviewed and endorse the plan as outlined and have made any additions/corrections below. This patient meets criteria for inpatient level of care based on the above medical complexity. A/P Luis Manuel Mobley Jr.??is a 61 YOM with ??high-risk??(FLT3+)??AML??adm???d on 10/15 for SDR-Rczr-ZPA via Flu/Bu/ATG regimen. Pretransplant course marked by dev't of C difficile colitis with toxic megacolon, s/p ytw-nlpmn-jkypzzjtw, with ostomy, then dev't of 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 ?? Day +14 today. Overall, feels he is improving . Wt below admit wt; Net + 840ml/24hr. Able to take all PO meds. Had PICC yesterday; tunneled catheter will be removed today. - Bl Cx from 11/03 growing GPC. Received only 2 doses of morphine 2mg. - Stool output still 1300ml ; took only one dose of imodium. # Mucositis - on morphine prn - Most meds switched to IV. - TPN; continue supportive measures. # ID: VRE bacteremia : noted on Bl Cx from 11/02; Rpt Cx on 11/03 growing GPC. - Had CT a/p per ID which looks good except for signs of esophagitis; - On cefepime, daptomycin. - Per ID, will remove tunneled catheter today - On Acyclovir and fluconazole ppx??; On oral Vanc for C. Diff ppx? # Pancytopenia - 2ry to chemo. - on Zarxio?and prn transfusions.? # GVHD ppx??- On Tacrolimus 0.7mg IV BID . T ac level 11/04 - 7.8. # VOD ppx - on Ursodiol ; lovenox ??c'ed last week for oral bleeding. ? # GI , Ostomy - On imodium prn for increased stool output. Encouraged to take it as needed. C. Diff neg. I reviewed his situation and our plans with the team, RN and pt on rounds today. Central Venous Access Statement of Need Tunneled catheter - clean dry intact site Can the central IV access be removed? [ Yes [x ] No [ ] N/A If no, reason for central access: [X] Stem cell transplant patient or AML induction Khloe Richardson MD Hematology Staff physician Pager: [phone] 11/05/21 Stacy Marin MD - 11/05/2021 7:31 AM EDT Images from the original note were not included. Inpatient Hematology/Oncology/SCT Progress Note Patient info: Name: Luis Manuel Mobley Jr. : 1960 PCP: LEISA Munguia PCP phone number: [phone] Date of Admission: 10/15/2021 ( Hospital Day 21 days ) Service: Hem/Onc Team A pg [id number] (09/03) Responsible Attending:Khloe Richardson MD ID: Luis Manuel Mobley Jr. is a 61 y.o. Male with hx of paroxysmal Afib, c diff colitis c/b toxic megacolon s/p bowel resection and colostomy in may 2021, FLT3+ AML with positive [employer] disease??s/p CR w/ 7+3+Midostaurin c/b relapse tx w ventoclax + gilteritinib (held since 10/08) most with pre-transplant BM and LP showing FELY, admitted for MUD allo HSCT.Today is day +14 (day 0 is 10/22), getting daptomycin and cefepime for VRE bacteremia. Baseline weight: 107.1kg Donor: MUD ABO: Donor O negative, recipient O positive HLA: 05/26 ID status: Donor and recipient both CMV negative Conditioning regimen: fludarabine, busulfan GVHD regimen: Rabbit ATG, methotrexate, tacrolimus 24 Hour Events: - yesterday, sipping on fluids, no solid food intake, took in 76% of po meds, tac level 7.8, got double lumen PICC,, got morphine 2g IV once - Overnight, able to take all po meds with premedication with zofran and morphine 2mg IV once, refused BMX and lidocaine rinses, HR increased to 150s- 190s form 1-2 minutes, NSR afterwards - This AM, BCx x2 ordered, reports morphine 2mg IV helps with mucositis pain, able to eat a popsicleyesterday, unable to eat banana - Weight 102.5kg -> 103.3kg - In/Out +1400ml (stool 1325) - This AM, Hgb 6.7, ordered a unit of pRBC - K 3.4, repleting, Mg 0.91, repleting - BCx 10/06: 1/2 gram positive cocci in pairs, the other one NGTD Vitals: Last value Range last 24 hrs Temperature Temp: 37.2 ??C (99 ??F) Temp: [37 ??C (98.6 ??F)-37.8 ??C (100 ??F)] Heart Rate Heart Rate: 87 Heart Rate: [87-191] Blood Pressure BP: 145/88 BP: (133-153)/(72-88) Respiratory Rate Resp: 20 Resp: [16-20] SpO2 SpO2: 97 % SpO2: [93 %-98 %] Intake/Output Summary (Last 24 hours) at 11/05/2021 0919 Last data filed at 11/05/2021 0909 Gross per 24 hour Intake 4665.77 ml Output 3825 ml Net 840.77 ml Patient Vitals for the past 168 hrs: Weight 11/05/21 0320 103.3 kg (227 lb 11.8 oz) 11/04/21 1719 103.3 kg (227 lb 11.8 oz) 11/04/21 0410 102.5 kg (225 lb 15.5 oz) 11/03/21 1520 102.8 kg (226 lb 10.1 oz) 11/03/21 0400 102.3 kg (225 lb 8.5 oz) 11/02/21 1618 103.1 kg (227 lb 4.7 oz) 11/02/21 0353 103.1 kg (227 lb 4.7 oz) 11/01/21 1705 102.9 kg (226 lb 13.7 oz) 11/01/21 0430 102.4 kg (225 lb 12 oz) 10/31/21 1647 102.3 kg (225 lb 8.5 oz) 10/31/21 0529 102 kg (224 lb 13.9 oz) 10/30/21 0420 101.2 kg (223 lb 1.7 oz) 10/29/21 1522 101.3 kg (223 lb 5.2 oz) Exam: GENERAL:?appeared in no acute distress, sleeping MOUTH: blood noted at posterior oropharynx, diffuse inflammation and blood in oral mucosa CARDIOVASCULAR:??rrr no mrg PULMONARY:??CTAB on RA, no increased wob GASTROINTESTINAL:??Abdomen soft nontender to palpation w +BS. Colostomy with brown watery stool in place. SKIN:??No rashes, bruises or petechiae. ?? EXT: no Edema at ankles NEUROLOGICAL:??Alert and oriented to person, place and time. No focal deficits Medications: Scheduled Meds: ??? potassium chloride 20 mEq Intravenous Q2H ??? magnesium sulfate 2 g Intravenous Once ??? DAPTOmycin 10 mg/kg/dose (Adjusted) Intravenous Q24H ??? ceFEPime 2 g Intravenous Q8H ??? metoprolol succinate XL 50 mg Oral Daily ??? lidocaine 15 mL Mucous Membrane Q4H ??? ursodiol 300 mg Oral Daily with breakfast ??? ursodiol 600 mg Oral Daily with dinner ??? pantoprazole 40 mg Intravenous BID ??? acyclovir 250 mg/m2/dose (Anton) Intravenous Q12H ??? fluconazole 400 mg Intravenous Q24H ??? loperamide 2 mg Oral BID ??? tacrolimus 0.7 mg Intravenous 2 times per day ? ? bmjqrkbwe-cvnthenxg-js-mag-sim 5 mL Oral 4 Times Daily AC & HS ??? gabapentin 200 mg Oral TID ??? sodium chloride 0.9 % (flush) 5 mL Intravenous BID ??? vancomycin 125 mg Oral BID ??? flecainide 50 mg Oral BID ??? supersaturated calcium phosphate 30 mL Oral 4 Times Daily ??? [START ON 11/21/2021] sulfamethoxazole-trimethoprim DS 1 tablet Oral Daily ??? filgrastim-sndz 600 mcg Subcutaneous Daily Continuous Infusions: ??? TPN Adult 100 mL/hr at 11/04/21 1745 PRN Meds:.sodium chloride 0.9 % (flush), morphine OR morphine OR morphine, magnesium sulfate, magnesium sulfate, potassium chloride, potassium chloride ER, potassium chloride ER, acetaminophen,camphor-menthoL, loperamide, alum-mag hydroxide-simeth, calcium carbonate, sucralfate, furosemide, fu rosemide, sodium chloride 0.9 % (flush), lidocaine, LORazepam, ondansetron, prochlorperazine, heparin, porcine, sodium chloride 0.9 % (flush) Labs: Recent Labs 11/05/21 0305 11/04/21 1450 11/04/21 0340 11/03/21 1335 11/03/21 0415 WBC 0.0* -- 0.0* -- 0.1* HGB 6.7* -- 5.9* -- 6.6* HCT 18.4* -- 16.8* -- 18.3* PLATELET 13* 15* 13* < > 14* < > = values in this interval not displayed. ANC 0 Recent Labs 11/05/21 0305 11/04/21 0340 11/03/21 0415 NA 144 140 140 K 3.4* 3.4* 3.4* CL 107 108* 108* CO2 23 21* 19* BUN 36* 36* 36* CREATININE 1.23 1.35 1.32 Recent Labs 11/05/21 0305 11/04/21 0340 11/03/21 0415 CALCIUM 8.6 8.8 9.0 MAGNESIUM 0.91 0.85 0.73 PHOS 3.0 2.5 2.9 Recent Labs 11/02/21 0350 10/31/21 0415 AST 16 18 ALT 41 42 ALKPHOS 121 118 BILITOT 0.4 0.3 BILIDIR 0.2 0.1 No results for input(s): INR, PT, PTT in the last 72 hours. Microbiology: BCx 11/05: pending UCx 11/03: pending BCx 11/03: 1/2 gram positive cocci in pairs BCx 11/02: VRE UA 11/03: unremarakble BCx 10/20: NGTD UA 10/20: does not look infectious Microbiology Results (Last 30 days) Procedure Component Value Units Date/Time Blood culture [[id number]] Collected: 11/03/21 0408 Lab Status: Preliminary result Specimen: Blood Updated: 11/05/21 0701 Blood Culture No growth at 2 days. Blood culture [[id number]] (Abnormal) Collected: 11/03/21 0356 Lab Status: Preliminary result Specimen: Blood Updated: 11/05/21 0607 Blood Culture No growth at 1 day. Gram Stain Aerobic -- Growth detected in aerobic bottle. Gram Positive Cocci in pairs seen Blood culture [[id number]] (Abnormal) Collected: 11/02/21 1018 Lab Status: Preliminary result Specimen: Blood Updated: 11/04/21 1101 Blood Culture -- Enterococcus faecium isolated * VRE, Vancomycin Resistance * Susceptibility testing in progress Gram Stain Aerobic -- Growth detected in aerobic bottle. Gram Positive Cocci in pairs seen Gram Stain Anaerobic -- Growth detected in anaerobic bottle. Gram Positive Cocci in pairs seen Results called to and read back by Radha Marmolejo 11/03/21 02:42:51 VMartin Blood culture [[id number]] (Abnormal) Collected: 11/02/21 1018 Lab Status: Preliminary result Specimen: Blood Updated: 11/04/21 1100 Blood Culture -- Enterococcus faecium isolated * VRE, Vancomycin Resistance * Susceptibility testing in progress Gram Stain Anaerobic -- Growth detected in anaerobic bottle. Gram Positive Cocci in pairs seen Gram Stain Aerobic -- Growth detected in aerobic bottle. Gram Positive Cocci in pairs seen C. Difficile Screen [[id number]] Collected: 10/28/21 1207 Lab Status: Final result Specimen: Stool Updated: 10/28/21 1334 C Diff Screen Negative Comment: Ag/Tox Neg C. diff?? Negative Clostridium difficile is not present in the specimen. If patient is having diarrhea suspected to be from an infectious cause, then Soap & Water Contact Precautions are still required. Blood culture [[id number]] Collected: 10/20/21 1732 Lab Status: Final result Specimen: Blood Updated: 10/25/21 2301 Blood Culture No growth at 5 days. Blood culture [[id number]] Collected: 10/20/21 1732 Lab Status: Final result Specimen: Blood Updated: 10/25/21 2301 Blood Culture No growth at 5 days. Blood culture [[id number]] Collected: 10/19/21 1139 Lab Status: Final result Specimen: Blood from Antecubital, Left Updated: 10/24/21 1501 Blood Culture No growth at 5 days. Blood culture [[id number]] (Abnormal) Collected: 10/19/21 1133 Lab Status: Final result Specimen: Blood from Hand, Right Updated: 10/25/21 0910 Blood Culture -- Coagulase negative Staphylococcus species detected by PCR Interpretation of the importance of skin mitzy such as Coagulase Negative Staph, Viridans Strep, Corynebacteria and other Gram Positive organisms from a single Blood Culture set requires clinical correlation. Gram Stain Aerobic -- Growth detected in aerobic bottle. Gram Positive Cocci in clusters seen C. Difficile Screen [[id number]] Collected: 10/19/21 1020 Lab Status: Final result Specimen: Stool Updated: 10/19/21 1607 C Diff Screen Negative Comment: Ag/Tox Neg C. diff?? Negative Clostridium difficile is not present in the specimen. If patient is having diarrhea suspected to be from an infectious cause, then Soap & Water Contact Precautions are still required. COVID-19 PCR [[id number]] Collected: 10/19/21 0405 Lab Status: Final result Specimen: Nasopharyngeal Swab Updated: 10/19/21 1834 SARS-CoV-2 RNA Not Detected Comment: This result should be interpreted in combination with the clinical observations, patient history and epidemiological information in making a final diagnosis. For testing of asymptomatic individuals, assay performance characteristics and clinical utility have not been evaluated. Testing for SARS-CoV-2 (Severe acute respiratory syndrome coronavirus 2, formerly known as 2019 novel coronavirus or 2019-nCoV) to aid in the diagnosis of COVID-19 is performed using the [employer] m SARS-CoV-2 Assay as authorized by the FDA Emergency Use Authorization (EUA). This EUA assay is intended for In-vitro Diagnostic (IVD) use with respiratory specimens such as nasopharyngeal swabs collected from individuals during the acute phase of infection. This assay is performed based on the instructions for use provided by [employer] and additional guidance provided by CDC and FDA. Testing is performed in the [facility] within the Department of Pathology and Laboratory Medicine at [facility], certified under the Clinical Laboratory Improvement Amendments of 1988 (CLIA), 42 U.S.C. 263a, to perform high complexity tests. Assay performance has been verified according to clinical laboratory regulatory requirements for use with specimens collected from individuals suspected of COVID-19. Test results are provided above. A result of Not Detected indicates that the viral RNA target is not present above the limit of detection, but does not preclude SARS-CoV-2 infection. False negative results may occur if a specimen is improperly collected, transported or handled; if amplification inhibitors are present; or if inadequate numbers of viral particles are present in the specimen. When a diagnostic test is negative, the possibility of a false negative result should be considered in the context of a patient's recent exposures and the presence of clinical signs and symptoms consistent with COVID-19. A result of Detected indicates that RNA from SARS-CoV-2 was detected and the patient is infected. As required or requested by public health authorities, positive specimens may be sent for additional testing. Positive and negative predictive values for this test are highly dependent on disease prevalence. A result of Invalid indicates that neither the viral RNA targets nor the internal control target was detected. An invalid result suggests the presence of inhibitors. Recollection and re-testing is recommended in the case of an invalid result. CDC COVID-19 criteria for testing on human specimens and clinical management guidance information are available at the CDC Coronavirus Disease 2019 (COVID-19) webpage under Information for Healthcare Professionals (https://www.cdc.gov/coronavirus/2019-ncov/hcp/index.html) Additional information about this and other EUA tests can be found in provider and patient fact sheets at the following FDA website: https://www.fda.gov/medical-devices/rejhmtljkcu-lovpsrc-7018-kklhh-37-lnkmqlbys- khg-ktxfsioevdwpfz-durtshl-devices/xprae-qzoiaqmidiq-hzzg SARS-Cov-2 RNA Source ULTRASOUND SPEC Swab COVID-19 PCR [[id number]] Collected: 10/15/212032 Lab Status: Final result Specimen: Nasopharyngeal Swab Updated: 10/16/21 0004 SARS-CoV-2 RNA PCR Not Detected Comment: This result should be interpreted in combination with the clinical observations, patient history and epidemiological information. For testing of asymptomatic individuals, assay performance characteristics and clinical utility have not been evaluated. Testing for SARS-CoV-2 (Severe acute respiratory syndrome coronavirus 2, formerly known as 2019 novel coronavirus or 2019-nCoV) to aid in the diagnosis of COVID-19 is performed using the [employer] COVID-19 Direct Assay by [employer] as authorized by the FDA issued Emergency Use Authorization (EUA). This assay is intended for In-vitro Diagnostic (IVD) use with nasopharyngeal swabs collected from individuals meeting the CDC criteria for testing. The assay is performed based on the instructions for use and additional guidance provided by the FDA. Testing is performed in the Microbiology Laboratory within the Department of Pathology and Laboratory Medicine at [facility], certified under the Clinical Laboratory Improvement Amendments of 1988 (CLIA), 42 U.S.C. section 263a, to perform high complexity tests. Assay performance has been verified according to clinical laboratory regulatory requirements. Test results are provided above. A result of Not Detected indicates that the viral RNA target is not present but does not preclude SARS-CoV-2 infection. False negative results may occur if a specimen is improperly collected, transported or handled; if amplification inhibitors are present; or if inadequate numbers of viral particles are present in the specimen. A result of Detected suggests a current or recent infection and the patient is presumed to be infected. Positive and negative predictive values for this test are highly dependent on disease prevalence. A result of Invalid indicates the inability to conclusively determine the presence or absence of SARS-CoV-2 RNA in the sample which can be due to a variety of factors. Recollection is recommended in the case of an invalid result. CDC COVID-19 criteria for testing on human specimens and clinical management guidance information are available at the CDC Coronavirus Disease 2019 (COVID-19) webpage under Information for Healthcare Professionals (https://www.cdc.gov/coronavirus/2019-ncov/hcp/index.html). Additional information about this and other EUA tests can be found in provider and patient fact sheets at the following FDA website: https://www.fda.gov/medical-devices/zaemjtysvxi-icsobij-5392-wkabq-33-mhpyuonox- pow-xmxqblwwfmlfte-qqrtrfw-devices/mpuyp-mlkjytbygfs-gsaw SARS-CoV-2 Source ULTRASOUND SPEC Swab Pertinent radiology/diagnostic studies: CT A/P w contrast 11/03 ?? IMPRESSION ?? 1. Ill defined opacities in lingula may represent pneumonia. Consider follow-up chest x-ray if indicated. 2. No abdominal or pelvic abscess seen. 3. Hiatal hernia with fat stranding around a thick walled and dilated distal esophagus. Finding may represent esophagitis. 4. Resolution of splenomegaly. 5. No enlarged abdominal and pelvic lymph nodes. 6. No abdominal or pelvic ascites. CXR 11/04 ?? IMPRESSION Radiographically the left basilar airspace opacity seen on 11/02/2021 has resolved and findings are now similar compared to a radiograph from 10/19/2021. However, it is uncertain to which extent the mild opacities seen on CT 11/03/2021 still persist or have resolved (due to difference in technique). ?? Within the limitation of single frontal view the change in positioning of the left subclavian central venous catheter in comparison to 10/19/2021 is due to the fact that the tip has flipped into the azygos vein (unchanged to 11/02/2021). Please correlate clinically if functionalityof this catheter remains adequate. ?? ASSESSMENT/PLAN: Luis Manuel Mobley Jr. is a 61 y.o. 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 now day + 14 (day 0 is 10/22) for MUD HSCT. Tolerated stem cell infusion well on 10/22, had some rigors and nausea post- infusion that resolved with medications. Counts remain low. Neutropenic fever on 11/02, cefepime escalated to zosyn, and then todaptomycin and cefepime after 1 day when BCx positive for VRE. ID consulted. Recommends removal of tunneled line, plan to remove on 11/05. CT A/P on 11/03 w contrast did not show abdominal infection but did show esophagitis as well as GGO in lingula, which was not observed in repeat CXR. Patient's high ostomy output (2-3L per day) initially improved with scheduled imodium. However, now unable to take po meds. Will hold off giving IVF b/c getting TPN. Lovenox stopped on 11/02 due to hemepositive stool and severe mucositis. For mucositis, on bmx, viscous lidocaine, morphine prn (dilaudid causes nausea). Started TPN on 10/31. Transitioned PO medication to IV as able. Today, unable to take po flecainide and metop. Put on tele For his bilateral feet neuropathy, will continue gabapentin to 200mg TID as tolerated Summary Plan: - make sure to have enough access, if continues to tolerate po meds, may be able to switch from IV to po - IR to remove tunneled line today - continue tele (until can take all po meds ervin flecanide and metop) - f/u BCx 11/05 - cefepime and dapto for VRE, ID following - no auto electrolyte repletion prn b/c on TPN - continue morphine prn - continue IV tac 0.7mg bid - monitor ostomy output - continue zarxio from day +7 to when ANC > 1500 - monitor I/O and daily weights - tacrolimus level Thursday and - f/u weekly thursday CMV - f/u Thursday EBV every 2 weeks - f/u UCx 11/03 ?? Plan: #VRE bacteremia #Neutropenic fever - likely from gut translocation from mucositis - ID consulted, appreciate recs - abx: - cefepime 10/19 - 11/02, 11/03 - p - zosyn 11/02 - daptomycin 11/02 - p - BCx 11/03: 1/2 strep cocci in pairs - f/u BCx 11/05 #STACIE, pre-renal, improving - pre-renal, noted on 10/27 - s/p 1L Bolus on 10/27 and 10/28, encourage imodium to thicken ostomy output - mIVF (10/29 -> 11/01) - continue to monitor, on TPN so no IVF #AML #MUD HSCT Day (-7): Fludarabine: Day (-6): Fludarabine, Busulfan, Rabbit ATG: Day (-5): Fludarabine, Busulfan, Rabbit ATG: Day (-4): Fludarabine, Busulfan, Rabbit ATG: Day (-3): Fludarabine, Busulfan: Day (0): Stem Cell Infusion: Day (+1): metHOTREXate: Day (+3): metHOTREXate: Day (+6): metHOTREXate: Day (+11): metHOTREXate: General - q4h vitals - strict Is/Os 2x daily - weigh patient 2x daily, notify provider if weight increases by 1kg or more in 12 hour period ?- lasix 20mg IV prn weight gain >1 kg above admission baseline ?- lasix 20mg IV for weight gain 1 kg over 12 hours or input exceeding output by greater than 1,000 ml/12h - neutropenic precautions - incentive spirometry q2h while awake - activity as tolerated - electrolyte replacement Chemotherapy/Support - Busulfan 204mg??day (-6) to day (-3) -??Fludarabine??61??mg 102ml infusion once over 30 minutes day -7 Then every 24 hours at 0900 for 4 doses day (-6) to day (-3) - Rabbit ATG??124.8mg over 10 hours day (-6), 166.4mg on day (-5) 208??on day (-4).?? - Day 0 stem cell infusion. Premedicate with acetaminophen 650mg, diphenhydramine 50mg) - Methotrexate??10mg??day (+1), day (+3), day (+6), day (+11). Hold for serum creatinine >2, bilirubin >5, fluid accumulation (large effusion or ascites), severe mucositis if potential need for intubation. - filgrastim??600mcg qd starting day (+7) until ANC >1500 ?? Laboratory Monitoring - weekly CMV PCR starting day +10, then weekly thereafter - IgG every 2 weeks starting day +1 to day +100 - U/A s/ reflex culture on admission, then daily on days -2, -1, 0? Transfusion parameters - Hgb <??7 - PLT <10, or if febrile??or bleeding??<20 - keep active T&S once hgb <8 ?? Prophylaxis Seizure ppx ?-phenytoin 300 day (-6) through (-1) - GI ppx ?- pantoprazole 40mg qd - mucositis ppx ?- supersaturated calcium phosphate oral solution 30ml 4x daily starting on admission until resolution of mucositis and ANC ?>500 - infection ppx ?- fluconazole 400mg qd starting day (0) ?- levofloxacin 750mg qd starting day (0) until ANC >500, changed tocefepime due to fever on 3/5 ?- acyclovir 800mg bid starting day (-7) ?- bactrim DS 1 tablet daily from day (-7) through day (-2) ?- bactrim DS 1 tablet MWF starting day (+30) - GVHD ppx?-??Tacrolimus??0.7mg IV bid?? - Started day (-2),?target 5-10 trough - VOD ppx ?- lovenox 40mg qd day (-7) through (+30) per Dr. Modi's note, he should continue lovenox 100mg qd until plt apx <40 then switch to VOD ppx dose. ?- ursodiol 300mg qAM??&??qPM day (-7) through day (+30) Hydration - NaCl 0.9% continuous??150ml/hr x??day (-6) ??Through (-3) ?? Pain/Nausea/Appetite - avoid acetaminophen through??day??(-3) - avoid steroid antiemetics - palonosetron 0.25mg day (-6) - aprepitant 130mg day (-6) prior to??busulfan - lorazepam 0.5mg IV q4h prn nausea, anxiety - ondansetron??8mg q8h prn nausea, vomiting beginning day (-3) - prochlorperazine 10mg IV q6h prn nausea, vomiting - use ondansetron >??prochlorperazine or promethazine >??lorazepam >??metoclopramide - olanzapine 5mg qhs starting day (-3) for 5 doses?? - dilaudid prn (10/31 - p) ?? #Fever, neutropenic - 102.9 10/19 - 100.8 11/02 - CXR benign - C. Diff negative - UA unremarkable - BCx 10/20 negative - BCx 11/02 pending - Zosyn 11/02 - cefepime 10/19 - 11/02, 11/03 - p - vanc 10/20 - 10/22 - daptomycin 11/02 - p #Paroxysmal Afib - Continue home metoprolol, flecainide - Tele ?? #Hx of provoked PE in Apr 2021 - On lovenox 100mg qd (held prior to central line placement) - Continue until plt reach approximately 40 followed by switch to prophylactic dosing - may not need upon discharge b/c s/p 3 months of AC ?? #Hx of C diff colitis - Continue home PO vancomycin as tolerated - Ostomy care #Bilateral Feet tingling - pt reports having baseline bilateral feet tingling that was noted to be worsened on on 10/21 (2 daysafter completing 5 days of fludarabine), strength intact, no loss of sensation - start gabapentin 100mg TID (10/21 - 10/23), 200mg TID (10/23 - p) #GERD - takes protonix at home - current regimen: protonix bid, carafate, tums, famotidine #Pancytopenia 2/2 to chemo and disease - continue to monitor, transfuse as needed for support #Routine DVT PPx: VOD ppx lovenox 40mg stopped on 11/02 (holding home dose 100mg) Diet: Neutropenic (BMT) diet Dispo: [place] CODE STATUS: Attempt Cardiopulmonary Resuscitation - Inpatient Stacy Marin MD PGY1 Internal Medicine 11/05/2021 Heme/Onc/BMT Team A Pager #[phone] Martha Pelayo RN - 11/05/2021 4:10 AM EDT Patient Summary Reason for admission: Day +14 (11/05) of MUD allo SCT for high-risk (FLT3+) AML conditioned with Flu/Bu/ATG/MTX Relevant PMH: s/p bowel resection/colectomy d/t toxic megacolon, Cdiff, Bilateral PE, hx paroxysmal AFIB, [employer] disease that has now been cleared OUTCOME EVALUATION NOTE: OUTCOME SUMMARY: Afebrile, telemetry monitoring continued - NSR - ST w/ PVCs. Around 2230, HR increased 150s-190s, asymptomatic, returned to NSR after 1-2 minutes. Endorsing 10/24 mouth/throat pain - premedicated with PRN zofran and morphine before pills, able to take all meds. Refused BMX and lidocaine rinses. Denied nausea overnight. Cefepime and daptomycin administered per OCT, TPN continued @ 100mL/hr. Refused bed alarm overnight. Resting between care. PLAN MOVING FORWARD: Ask team about discontinuing PRN electrolytes d/t TPN? Ostomy care, monitor output TPN Pre-medicate for pain and nausea for po medications Telemetry monitoring (unable to take Metoprolol XL) CHG line only PRN IV morphine- pain control IV abx DL PICC placed 11/04, TL removal in AM (may need platelets before - see order) INDIVIDUALIZED FALL PREVENTION INTERVENTIONS: Patient-specific fall risk factors per assessment: [current deficits]: High fall risk d/t IV therapy, secondary diagnosis, generalized weakness Assistance [level of assistance required for transfers and ambulation]: IND Supervision [direct monitoring required during toileting and ADLs]: IND Surveillance [continuous indirect monitoring]: Masimo, bed alarm refusal, room near unit station, call light within reach, purposeful hourly rounding Patient-specific fall prevention interventions for sensory deficits provided, if applicable: CPG GOAL OUTCOME EVALUATION: Micki Greco RN - 11/04/2021 6:14 PM EDT Illness Severity [x] Stable [] Watcher [] Unstable Patient Summary Reason for admission: Day +13 (11/04) of 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 Significant 24 hour events: 11/04 AM: VSS. Mouith pain 4-6/10, IV morphine given x1 with good effect. N/v x2 Zofran and compazinegiven. Not eating any solid foods r/t pain. Sipping on fluids. 7 beat run of Vtach this am, MD aware- pt asymptomatic. Per ID, tunneled line will be removed tomorrow am, may need to have platelets infusing for procedure - see order for platelets. DL picc placed this afternoon, did make team aware that this will more than likely not be enough lumens. Did take about 75% of po meds today, after pre medicated for nausea and pain. Received platelets - post ct = 15. K+, and mag replaced. [place] level 7.8. 11/03 PM Febrile to 38.8 at 0400, IV tylenol given before blood started. Receiving 1 unit PRBC for Hgb 5.9. Continues with severe mucositis, refusing pain meds. Oral hygiene encouraged. Refusing all PO meds. Continues on cefepime and daptomycin. CT CAP showed potential PNA, esophogitis. Tachy to 140's with exertion, remains on tele in sinus tach.Continues on TPN. Chemo plan & supportive medication: Fludarabine/ Busulfan/ATG/MTX Baseline Weight: 107.1 kg AM weight: 102.5 kg PM weight: 103.3 kg Neuro: WDL CV: WDL-tachy with exertion Neurovasc: .WDL except, neurovascular assessment lower N/T bilateral feet @ baseline VTE Prophylaxis: anticoagulant therapy lovenox Pulmonary: .WDL except, breath sounds, mucous membranes PICHARDO O2 Device: None (Room air) GI: .WDL except, GI symptoms, nausea and vomiting, stool ileostomy; poor appetite due to reflux, mucositis. Not using PRN Tums and Carafate/malox, protonix, c.diff neg on 10/28. Illeostomy: wound care used silver nitrate on small bleed at stoma 10/28 : WDL Musculoskeletal: .WDL except, mobility generalized weakness Pain/Location: (pt off unit at procedure) (11/04/21 7988) / mouth (nondental) (11/04/21 1219) Mobility Plan: IND, BA refusal, allowed bed alarm today due to morphine administration Bed alarm sensitivity: N/A Skin: .WDL except, characteristics R cheek,upper palate and tongue lesions, throat red/sore. Skin tag on R ear coming off, is bleeding. 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 for therapy. Pt deferred treatment to spend timewith visitor. Made a plan with pt for therapy tomorrow afternoon and will follow up then. Narcisa Rooney, [facility] Physical Therapy Inpatient Rehabilitation Department Fadumo Ortiz PTA Pager: [phone] Physical Therapy Inpatient Rehab Department NIAT Claudia Claros RD - 11/04/2021 12:00 PM EDT Images from the original note were not included. Nutrition Progress Note Luis Manuel Mobley Jr. is a 61 y.o. 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 Reason for intervention: Follow up and TPN Comments: TPN to provide 147g dextrose, 100g protein, and 40g lipid in 2,400mL. 1/2 NS. Increased phos by 5mmol. Increased mag by 4mEq. Increased K by 20mEq. Increased calories. Daily BMP with mag and phos please. Weekly LFTs and TG while on TPN. Monitor wt daily I was able to discuss plan with provider Ian Diaz MD Hem/Onc pager #[phone]. Nutrition Support: TPN Medication Recent History (Show up to 3 orders; newest on the left. Changes between the two mostrecent orders are indicated.) Start date and time 11/04/2021 1800 11/01/2021 1945 TPN Adult [[id number]] TPN Adult [[id number]] Order Status Active Last Dose in Progress Last Admin New Bag at 11/03/2021 1728 by Denise Madera, RN Frequency Continuous (1800) Continuous (1800) Additives adult multivitamin 5 mL 5 mL adult trace elements Zn-Cu-Mn-Se (Tralement) 0.5 mL 0.5 mL folic acid 400 mcg 400 mcg Vit O5-E2-V6-B5-B6 (B Complex) 1 mL 1 mL Electrolytes potassium phosphate 20 mmol 15 mmol potassium chloride 40 mEq 28 mEq sodium chloride 46 mEq 46 mEq sodium acetate 140 mEq 140 mEq calcium gluconate 8 mEq 8 mEq magnesium sulfate 32 mEq 28 mEq Dextrose dextrose 70% 147 g 100 g Amino Acids amino acid 15% no.5 (ClinisoL) 100 g 100 g QS Base sterile water 1,250.47 mL 1,326.22 mL Lipid fat emulsion (Intralipid) 30 % 40 g 40 g Energy Contribution Proteins 400 kcal 400 kcal Dextrose 499.8 kcal 340.1 kcal Lipids 399 kcal 399 kcal Total 1,298.8 kcal 1,139.1 kcal Electrolyte Ion Calculated Amount Sodium 186 mEq 186 mEq Potassium 69.33 mEq 50 mEq Calcium 8 mEq 8 mEq Magnesium 32 mEq 28 mEq Aluminum -- -- Phosphate 22 mmol 17 mmol Chloride 86 mEq 74 mEq Acetate 224.67 mEq 224.67 mEq Chloride: Acetate Ratio 0.385 0.33 Trace Elements Copper 0.15 mg 0.15 mg Manganese 27.5 mcg 27.5 mcg Selenium 30 mcg 30 mcg Zinc 1.5 mg 1.5 mg Other Total Amino Acid 100 g 100 g Total Amino Acid/kg 0.98 g/kg 0.97 g/kg Glucose Infusion Rate 1 mg/kg/min 0.68 mg/kg/min Osmolarity 980.17 862.87 Volume 2,400 mL 2,400 mL Rate 100 mL/hr 100 mL/hr Dosing Weight 102.5 kg 102.9 kg Infusion Site Central Central Total Multi-vitamins 5 mL 5 mL Lab Results Component Value Date NA 140 11/04/2021 K 3.4 (L) 11/04/2021 CL 108 (H) 11/04/2021 CO2 21 (L) 11/04/2021 BUN 36 (H) 11/04/2021 CREATININE 1.35 11/04/2021 ESTGFR 56 (L) 11/04/2021 MAGNESIUM 0.85 11/04/2021 CALCIUM 8.8 11/04/2021 PHOS 2.5 11/04/2021 AST 16 11/02/2021 ALT 41 11/02/2021 ALKPHOS 121 11/02/2021 BILITOT 0.4 11/02/2021 BILIDIR 0.2 11/02/2021 TRIG 171 07/13/2021 HA1C 4.8 07/13/2021 [id number] 1,799 (H) 08/01/2021 SFOLATE 5.6 08/01/2021 IRON [...] right: No Injury Device Sites: O2 sat monitor Other Sites: ostomy Relevant medications: BMX, imodium (not given), protonix, caphosol, prograf, zofran prn Last Bowel Movement: 11/03/21 Intake/Output Summary (Last 24 hours) at 11/04/2021 1200 Last data filed at 11/04/2021 1100 Gross per 24 hour Intake 3520 ml Output 3725 ml Net -205 ml Admit Weight: 107.1 kg Estimated body mass index is 32.72 kg/m?? as calculated from the following: Height as of this encounter: 177 cm (5' 9.69). Weight as of this encounter: 102.5 kg (225 lb 15.5 oz). Anton Body Weight: 74.6 kg Usual Body Weight: 235 lbs per pt Wt Readings from Last 10 Encounters: 11/04/21 102.5 kg (225 lb 15.5 oz) 10/15/21 107.8 kg (237 lb 9.6 oz) 10/04/21 107.2 kg (236 lb 6.4 oz) 09/27/21 109 kg (240 lb 6.4 oz) 09/16/21 105.9 kg (233 lb 6.4 oz) 09/12/21 106.6 kg (235 lb) 09/09/21 102.8 kg (226 lb 9.6 oz) 09/05/21 106.8 kg (235 lb 6.4 oz) 08/26/21 102.8 kg (226 lb 9.6 oz) 08/19/21 100.2 kg (221 lb) Patient Vitals for the past 168 hrs: Weight 11/04/21 0410 102.5 kg (225 lb 15.5 oz) 11/03/21 1520 102.8 kg (226 lb 10.1 oz) 11/03/21 0400 102.3 kg (225 lb 8.5 oz) 11/02/21 1618 103.1 kg (227 lb 4.7 oz) 11/02/21 0353 103.1 kg (227 lb 4.7 oz) 11/01/21 1705 102.9 kg (226 lb 13.7 oz) 11/01/21 0430 102.4 kg (225 lb 12 oz) 10/31/21 1647 102.3 kg (225 lb 8.5 oz) 10/31/21 0529 102 kg (224 lb 13.9 oz) 10/30/21 0420 101.2 kg (223 lb 1.7 oz) 10/29/21 1522 101.3 kg (223 lb 5.2 oz) 10/29/21 0338 100.4 kg (221 lb 5.5 oz) 10/28/21 1727 101.3 kg (223 lb 5.2 oz) Assessment: Estimated needs: Calories: 1865 (25 kcal/kg IBW) Protein: 89-112 grams (1.2-1.5 g/kg IBW) Nutrition Focused Physical Exam (NFPE): Performed on 10/28/21. Subcutaneous fat loss at Orbital region: None present Upper arm region (triceps/biceps): None present Thoracic and lumbar region (ribs, lower back and maxillary line): Not assessed Lean muscle loss to Orthodoxy region (temporalis muscle): None present Clavicle bone region (pectoralis major): None present Dorsal hand (interosseous muscle): None present Shoulder (deltoid): None present Scapular bone region (latissimus dorsi, trapezius muscles): Not assessed Thigh region (quadriceps muscle): None present Posterior calf region (gastrocnemius muscle): None present Fluid accumulation: Not assessed Nutrition intake and intake history/Interview: Luis Manuel reported a poor appetite today, not taking solids d/t mucositis and primarily taking in water as fluids, gatorade at bedside. Ileostomy output high, although per pt output is stable. Continue to monitor wt, below reported UBW. Protein-calorie Malnutrition: Not enough data to assess (Cameron JPEN J Parenteral Enteral Nutr. 2011; 36(3): 273-83) Nutrition to continue to follow up while inpatient. Thank you, Claudia Claros RD Pager #:[phone] Khloe Richardson MD - 11/04/2021 11:19 AM EDT HEMATOLOGY STAFF ADDENDUM I have independently interviewed and examined this patient and have personally reviewed the relevantclinical, laboratory and radiological data with the housestaff on rounds. Please refer to the comprehensive progress note above, with which I concur. I have reviewed and endorse the plan as outlined and have made any additions/corrections below. This patient meets criteria for inpatient level of care based on the above medical complexity. Wt below admit wt; Intake/Output Summary (Last 24 hours) at 11/04/2021 1121 Last data filed at 11/04/2021 1100 Gross per 24 hour Intake 4328 ml Output 3725 ml Net 603 ml A/P Luis Manuel Mobley Jr.??is a 61 YOM with ??high-risk??(FLT3+)??AML??adm???d on 10/15 for SPS-Hnzj-NYO via Flu/Bu/ATG regimen. Pretransplant course marked by dev't of C difficile colitis with toxic megacolon, s/p [id number], with ostomy, then dev't of 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 ?? Day +13 today . ? # Mucositis - on morphine prn - Most meds switched to IV. - TPN; continue supportive measures. # ID: VRE bacteremia : noted on Bl Cx from 11/02 - Had CT a/p per ID which looks good except for signs of esophagitis; Will f/up with CXR of the lungfindings; - On cefepime, daptomycin; - Per ID, will remove tunneled catheter and place PICC; - On Acyclovir and fluconazole ppx??; On oral Vanc for C. Diff ppx? # STACIE - Cr stable at 1.35 # Pancytopenia - 2ry to chemo. - on Zarxio? # GVHD ppx??- On Tacrolimus 0.7mg IV BID . T ac level 10/31 - 7.7?F/up Tac from today # VOD ppx - on Ursodiol ; lovenox ??c'ed last week for oral bleeding. ? # GI , Ostomy - On imodium prn for increased stool output. C. Diff neg. I reviewed his situation and our plans with the team, RN and pt on rounds today. Central Venous Access Statement of Need Tunneled catheter - clean dry intact site Can the central IV access be removed? [ Yes [x ] No [ ] N/A If no, reason for central access: [X] Stem cell transplant patient or AML induction Khloe Richardson MD Hematology Staff physician Pager: [phone] 11/04/21 Aracely Greco MD - 11/04/2021 10:27 AM EDT Infectious Disease Service - Follow-Up Note Active ID Issue(s): - VRE bacteremia - Neutropenic fever, persistent Interval Updates: Has continued to fever, w/ Tmax of 38.9 C yesterday. Today, on interview, he denies any new signs orsymptoms. His mucositis remains severe but is slowly improving. His stool output remains high volumebut stable. Antimicrobials: Cefepime (10/19-) Daptomycin (11/02-) Prophylaxis: Acyclovir Fluconazole PO Vancomycin Medications: ??? potassium chloride 20 mEq in sterile water 100 mL infusion ??? DAPTOmycin (Cubicin) 845 mg in sodium chloride 0.9% 66.9 mL ??? ceFEPime (Maxipime) 2g vial attach to sodium chloride 0.9% 100 mL Mini-Bag Plus 2 g ??? metoprolol succinate XL (Toprol-XL) tablet 50 mg ??? morphine (2 mg/mL) injection 2 mg OR morphine (4 mg/mL) injection 4 mg OR morphine (2 mg/mL) injection 6 mg ??? lidocaine (Xylocaine) 2 % viscous solution 15 mL ??? magnesium sulfate 2 g in sterile water 50 mL infusion ??? magnesium sulfate 1 g in dextrose 5% 100 mL infusion ??? potassium chloride 20 mEq in sterile water 100 mL infusion ??? potassium chloride ER (K-Dur/Klor-Con) tablet 40 mEq ??? potassium chloride ER (K-Dur/Klor-Con) tablet 20 mEq ??? ursodiol (Actigall) (60 mg/mL) oral liquid 300 mg ??? ursodiol (Actigall) (60 mg/mL) oral liquid 600 mg ??? pantoprazole (Protonix) injection 40 mg ??? TPN Adult ??? acetaminophen (Tylenol) (32.02 mg/mL) oral liquid 975 mg ??? acyclovir (Zovirax) 472.5 mg in sodium chloride 0.9% 259.45 mL infusion ??? fluconazole (Diflucan) 400 mg in sodium chloride 0.9% 200 mL infusion ??? loperamide (Imodium A-D) capsule 2 mg ??? tacrolimus (Prograf) 0.7 mg in dextrose 5% Non-PVC 150.7 mL infusion ??? camphor-menthoL (Sarna) lotion ??? diphenhydrAMINE/aluminum-magnesium hydroxide with simethicone/lidocaine (BMX) (6.67 mg-0.83 mg-13.33 mg-1.33 mg/mL) oral liquid 5 mL ??? loperamide (Imodium A-D) capsule 2 mg ??? alum-mag hydroxide-simeth (Maalox) (40 mg-40 mg-4 mg/mL) oral liquid 10 mL ??? calcium carbonate (Tums) chewable tablet 500 mg ??? sucralfate (Carafate) (100 mg/mL) oral liquid 1 g ??? gabapentin (Neurontin) capsule 200 mg ??? furosemide (Lasix) (10 mg/mL) injection 60 mg ??? furosemide (Lasix) (10 mg/mL) injection 60 mg ??? sodium chloride 0.9 % (flush) (BD PosiFlush Normal Saline 0.9) flush 5 mL ??? sodium chloride 0.9 % (flush) (BD PosiFlush Normal Saline 0.9) flush 5-20 mL ??? lidocaine (Xylocaine) 1% (10 mg/mL) injection 3 mg ??? vancomycin (Vancocin) capsule 125 mg ??? flecainide (Tambocor) tablet 50 mg ??? LORazepam (Ativan) (2 mg/mL) injection 0.5 mg ??? ondansetron (pf) (Zofran) (2 mg/mL) injection 8 mg ??? prochlorperazine (Compazine) (5 mg/mL) injection 10 mg ??? supersaturated calcium phosphate (Caphosol) oral solution 30 mL ??? [START ON 11/21/2021] sulfamethoxazole-trimethoprim DS (Bactrim DS) 800-160 mg per tablet 1 tablet ??? filgrastim-sndz (Zarxio) (300 mcg/0.5 mL) injection 600 mcg ??? heparin (pf) (porcine) (100 units/mL) flush 5 mL syringe 500 Units ??? sodium chloride 0.9 % (flush) (BD PosiFlush Normal Saline 0.9) flush 5-20 mL Vitals: Last value Range last 24 hrs Temperature Temp: 37.4 ??C (99.3 ??F) Temp: [36.8 ??C (98.3 ??F)-38.9 ??C (102 ??F)] Heart Rate Heart Rate: (!) 101 Heart Rate: [96-101] Blood Pressure BP: 135/71 BP: (128-137)/(71-77) Respiratory Rate Resp: 20 Resp: [20-24] SpO2 SpO2: 98 % SpO2: [94 %-98 %] Physical Exam: General: In no acute distress, resting in bed comfortably, pleasant HEENT: No scleral icterus, erosions present on upper palate consistent with severe mucositis Neck: Supple, trachea midline Pulmonary: Scant crackles at L lung base, no wheezes CV: Regular rate and rhythm, no murmurs Chest: L chest wall SBCC with some surrounding erythema. R chest wall port in place, not accessed. Abdomen: Soft, mildly distended, non-tender to palpation in all quadrants. Midline incision appears well healed, RLQ ostomy with green stool output. Extremities: Trace peripheral edema Skin: No rashes or lesions noted on visible skin Neuro: Alert and oriented, no focal deficits, moving all extremities spontaneously Psych: Normal mood and affect, linear thought process Laboratory: Recent Labs 11/04/21 0340 11/03/21 1335 11/03/21 0415 11/02/21 0350 WBC 0.0* -- 0.1* 0.0* HGB 5.9* -- 6.6* 7.9* HCT 16.8* -- 18.3* 21.3* PLATELET 13* 18* 14* 31* Recent Labs 11/04/21 0340 11/03/21 0415 11/02/21 0350 NA 140 140 141 K 3.4* 3.4* 4.1 CL 108* 108* 111* CO2 21* 19* 15* BUN 36* 36* 36* CREATININE 1.35 1.32 1.29 Recent Labs 11/02/21 0350 10/31/21 0415 AST 16 18 ALT 41 42 ALKPHOS 121 118 BILITOT 0.4 0.3 BILIDIR 0.2 0.1 Microbiology: 11/03 BCx x2 - NGTD 11/02 BCx x2 - VRE in 4/4 vials 10/28 C diff screen - negative 10/20 BCx x2 - NG 10/19 BCx x2 - CoNS in 1/4 vials 10/19 C diff screen - negative 10/19 SARS-CoV-2 PCR - not detected 10/15 SARS-CoV-2 PCR - not detected Radiology/Studies/Procedures: CXR (11/04/2021) Left basilar airspace opacity seen on 11/02/[address] abdomen & pelvis w/ IV contrast (11/03/2021) 1. Ill defined opacities in lingula may represent pneumonia. Consider follow-up chest x-ray if indicated. 2. No abdominal or pelvic abscess seen. 3. Hiatal hernia with fat stranding around a thick walled and dilated distal esophagus. Finding may represent esophagitis. 4. Resolution of splenomegaly. 5. No enlarged abdominal and pelvic lymph nodes. 6. No abdominal or pelvic ascites. Impression: Luis Manuel Mobley Jr. is a 61 y.o. male with Hx of relapsed FLT3+ AML, along with prior Hx of fulminant Cdifficile colitis requiring colectomy in 05/2021, who is admitted for allogeneic HSCT, w/ day 0 = 10/22. On 10/19, he spiked high grade fevers in the setting of downtrending WBC count, and he was started on cefepime w/ subsequent improvement of his fever curve. Blood Cxs on that day revealed growth of CoNS, which was felt to be a contaminant. On 11/02, he spiked recurrent neutropenic fevers, and was notedto have VRE bacteremia. While the most likely source is gut translocation in s/o severe mucositis, his L chest wall SBCC is also a potential source. Recommendations: - Continue IV daptomycin 10 mg/kg daily for treatment of VRE bacteremia - F/U surveillance blood Cxs to document clearance - Continue IV cefepime 2g q8h for treatment of neutropenic fever, while ANC remains <500 - Please remove L chest wall SBCC for source control - If further blood Cxs return positive for VRE, will need to undergo a TTE, but can hold off on thisfor now - Continue PO vancomycin 125 mg q12h for secondary CDI prophylaxis - Continue acyclovir and fluconazole for ID prophylaxis, though would switch to oral formulation as appropriate Monitor for toxicity of daptomycin, cefepime, PO vancomycin, acyclovir, fluconazole by checking CBC w/ diff, CMP. Recommendations discussed with primary team. X The Infectious Disease consult service will continue to follow the patient. Do not hesitate to page ID Green team with any further questions or concerns. ID will sign off. Please contact us if further consultation required. Aracely Greco MD Staff Physician in Infectious Diseases Radha Marmolejo RN - 11/04/2021 7:47 AM EDT Patient Summary Reason for admission: Day +13 (11/04) of 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 11/03 PM Febrile to 38.8 at 0400, IV tylenol given before blood started. Receiving 1 unit PRBC for Hgb 5.9. Continues with severe mucositis, refusing pain meds. Oral hygiene encouraged. Refusing all PO meds. Continues on cefepime and daptomycin. CT CAP showed potential PNA, esophogitis. Tachy to 140's with exertion, remains on tele in sinus tach.Continues on TPN. Refused pain/nausea meds overnight. Tolerated blood transfusion well, Night coverage MD opted not togive platelets for platelet level of 14. 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 Inpatient Hematology/Oncology/SCT Progress Note Patient info: Name: Luis Manuel Mobley Jr. : 1960 PCP: LEISA Munguia PCP phone number: [phone] Date of Admission: 10/15/2021 ( Hospital Day 20 days ) Service: Hem/Onc Team A pg [id number] (09/03) Responsible Attending:Khloe Richardson MD ID: Luis Manuel Mobley Jr. is a 61 y.o. 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 Baseline weight: 107.1kg Donor: MUD ABO: Donor OO negative, recipient O positive HLA: 05/26 ID status: Donor and recipient both CMV negative Conditioning regimen: fludarabine, busulfan GVHD regimen: Rabbit ATG, methotrexate, tacrolimus 24 Hour Events: - Yesterday, on dapto and cefepime for VRE bacteremia, unable to take po meds (flecanide and metop) so put on tele, refused to get morphine (only got 2mg x1 and 4mg x1), ID advocated for tunnel line removal - Overnigtht: afebrile, VSS, got one unit of pRBC for Hgb 5.9, - This AM, reports in better spirit, educated about morphine prn for pain - Weight 102.3kg -> 102.5kg - In/Out: +121 (TPN 2160, Stool 1775ml) - CT abd/pelvis: trace right pleural effusion, GGO in left lung base, suspecting infection, recs CXR, no abd/pelvic abscess seen, esophagitis - K 3.4, repleting - BCx 11/02 VRE, 11/03 NGTD Vitals: Last value Range last 24 hrs Temperature Temp: 37.2 ??C (99 ??F) Temp: [36.8 ??C (98.3 ??F)-38.9 ??C (102 ??F)] Heart Rate Heart Rate: (!) 101 Heart Rate: [96-101] Blood Pressure BP: 134/72 BP: (128-137)/(71-75) Respiratory Rate Resp: 18 Resp: [18-24] SpO2 SpO2: 97 % SpO2: [94 %-98 %] Intake/Output Summary (Last 24 hours) at 11/04/2021 1325 Last data filed at 11/04/2021 1320 Gross per 24 hour Intake 3864 ml Output 3725 ml Net 139 ml Patient Vitals for the past 168 hrs: Weight 11/04/21 0410 102.5 kg (225 lb 15.5 oz) 11/03/21 1520 102.8 kg (226 lb 10.1 oz) 11/03/21 0400 102.3 kg (225 lb 8.5 oz) 11/02/21 1618 103.1 kg (227 lb 4.7 oz) 11/02/21 0353 103.1 kg (227 lb 4.7 oz) 11/01/21 1705 102.9 kg (226 lb 13.7 oz) 11/01/21 0430 102.4 kg (225 lb 12 oz) 10/31/21 1647 102.3 kg (225 lb 8.5 oz) 10/31/21 0529 102 kg (224 lb 13.9 oz) 10/30/21 0420 101.2 kg (223 lb 1.7 oz) 10/29/21 1522 101.3 kg (223 lb 5.2 oz) 10/29/21 0338 100.4 kg (221 lb 5.5 oz) 10/28/21 1727 101.3 kg (223 lb 5.2 oz) Exam: GENERAL:?appeared in no acute distress, sleeping MOUTH: blood noted at posterior oropharynx, diffuse inflammation in oral mucosa CARDIOVASCULAR:??rrr no mrg PULMONARY:??CTAB on RA, no increased wob GASTROINTESTINAL:??Abdomen soft nontender to palpation w +BS. Colostomy with brown watery stool in place. SKIN:??No rashes, bruises or petechiae. ?? EXT: no Edema at ankles NEUROLOGICAL:??Alert and oriented to person, place and time. No focal deficits Medications: Scheduled Meds: ??? magnesium sulfate 2 g Intravenous Once ??? DAPTOmycin 10 mg/kg/dose (Adjusted) Intravenous Q24H ??? ceFEPime 2 g Intravenous Q8H ??? metoprolol succinate XL 50 mg Oral Daily ??? lidocaine 15 mL Mucous Membrane Q4H ??? ursodiol 300 mg Oral Daily with breakfast ??? ursodiol 600 mg Oral Daily with dinner ??? pantoprazole 40 mg Intravenous BID ??? acyclovir 250 mg/m2/dose (Anton) Intravenous Q12H ??? fluconazole 400 mg Intravenous Q24H ??? loperamide 2 mg Oral BID ??? tacrolimus 0.7 mg Intravenous 2 times per day ? ? dqonsottf-qqkyggigz-ak-mag-sim 5 mL Oral 4 Times Daily AC & HS ??? gabapentin 200 mg Oral TID ??? sodium chloride 0.9 % (flush) 5 mL Intravenous BID ??? vancomycin 125 mg Oral BID ??? flecainide 50 mg Oral BID ??? supersaturated calcium phosphate 30 mL Oral 4 Times Daily ??? [START ON 11/21/2021] sulfamethoxazole-trimethoprim DS 1 tablet Oral Daily ??? filgrastim-sndz 600 mcg Subcutaneous Daily Continuous Infusions: ??? TPN Adult ??? TPN Adult 100 mL/hr at 11/03/21 1728 PRN Meds:.morphine OR morphine OR morphine, magnesium sulfate, magnesium sulfate, potassium chloride, potassium chloride ER, potassium chloride ER, acetaminophen, camphor-menthoL, loperamide, alum-mag hydroxide-simeth, calcium carbonate, sucralfate, furosemide, furosemide, sodium chloride 0.9 % (flush), lidocaine, LORazepam, ondansetron, prochlorperazine, heparin, porcine, sodium chloride 0.9% (flush) Labs: Recent Labs 11/04/21 0340 11/03/21 1335 11/03/21 0415 11/02/21 0350 WBC 0.0* -- 0.1* 0.0* HGB 5.9* -- 6.6* 7.9* HCT 16.8* -- 18.3* 21.3* PLATELET 13* 18* 14* 31* ANC 0 Recent Labs 11/04/21 0340 11/03/21 0415 11/02/21 0350 NA 140 140 141 K 3.4* 3.4* 4.1 CL 108* 108* 111* CO2 21* 19* 15* BUN 36* 36* 36* CREATININE 1.35 1.32 1.29 Recent Labs 11/04/21 0340 11/03/21 0415 11/02/21 0350 CALCIUM 8.8 9.0 9.2 MAGNESIUM 0.85 0.73 0.76 PHOS 2.5 2.9 2.8 Recent Labs 11/02/21 0350 10/31/21 0415 AST 16 18 ALT 41 42 ALKPHOS 121 118 BILITOT 0.4 0.3 BILIDIR 0.2 0.1 Recent Labs 11/01/21 1855 INR 1.2 PT 13.3* PTT 33 Microbiology: UCx 11/03: pending BCx 11/03: NGTD BCx 11/02: VRE UA 11/03: unremarakble BCx 10/20: NGTD UA 10/20: does not look infectious Microbiology Results (Last 30 days) Procedure Component Value Units Date/Time Blood culture [[id number]] Collected: 11/03/21 0408 Lab Status: Preliminary result Specimen: Blood Updated: 11/04/21 0701 Blood Culture No growth at 1 day. Blood culture [[id number]] Collected: 11/03/21 0356 Lab Status: Preliminary result Specimen: Blood Updated: 11/04/21 0701 Blood Culture No growth at 1 day. Blood culture [[id number]] (Abnormal) Collected: 11/02/21 1018 Lab Status: Preliminary result Specimen: Blood Updated: 11/04/21 1101 Blood Culture -- Enterococcus faecium isolated * VRE, Vancomycin Resistance * Susceptibility testing in progress Gram Stain Aerobic -- Growth detected in aerobic bottle. Gram Positive Cocci in pairs seen Gram Stain Anaerobic -- Growth detected in anaerobic bottle. Gram Positive Cocci in pairs seen Results called to and read back by Radha Marmolejo 11/03/21 02:42:51 VMartin Blood culture [[id number]] (Abnormal) Collected: 11/02/21 1018 Lab Status: Preliminary result Specimen: Blood Updated: 11/04/21 1100 Blood Culture -- Enterococcus faecium isolated * VRE, Vancomycin Resistance * Susceptibility testing in progress Gram Stain Anaerobic -- Growth detected in anaerobic bottle. Gram Positive Cocci in pairs seen Gram Stain Aerobic -- Growth detected in aerobic bottle. Gram Positive Cocci in pairs seen C. Difficile Screen [[id number]] Collected: 10/28/21 1207 Lab Status: Final result Specimen: Stool Updated: 10/28/21 1334 C Diff Screen Negative Comment: Ag/Tox Neg C. diff?? Negative Clostridium difficile is not present in the specimen. If patient is having diarrhea suspected to be from an infectious cause, then Soap & Water Contact Precautions are still required. Blood culture [[id number]] Collected: 10/20/21 173 Lab Status: Final result Specimen: Blood Updated: 10/25/21 2301 Blood Culture No growth at 5 days. Blood culture [[id number]] Collected: 10/20/21 1732 Lab Status: Final result Specimen: Blood Updated: 10/25/21 2301 Blood Culture No growth at 5 days. Blood culture [[id number]] Collected: 10/19/21 1139 Lab Status: Final result Specimen: Blood from Antecubital, Left Updated: 10/24/21 1501 Blood Culture No growth at 5 days. Blood culture [[id number]] (Abnormal) Collected: 10/19/21 1133 Lab Status: Final result Specimen: Blood from Hand, Right Updated: 10/25/21 0910 Blood Culture -- Coagulase negative Staphylococcus species detected by PCR Interpretation of the importance of skin mitzy such as Coagulase Negative Staph, Viridans Strep, Corynebacteria and other Gram Positive organisms from a single Blood Culture set requires clinical correlation. Gram Stain Aerobic -- Growth detected in aerobic bottle. Gram Positive Cocci in clusters seen C. Difficile Screen [[id number]] Collected: 10/19/21 1020 Lab Status: Final result Specimen: Stool Updated: 10/19/21 1607 C Diff Screen Negative Comment: Ag/Tox Neg C. diff?? Negative Clostridium difficile is not present in the specimen. If patient is having diarrhea suspected to be from an infectious cause, then Soap & Water Contact Precautions are still required. COVID-19 PCR [[id number]] Collected: 10/19/21 0405 Lab Status: Final result Specimen: Nasopharyngeal Swab Updated: 10/19/21 1834 SARS-CoV-2 RNA Not Detected Comment: This result should be interpreted in combination with the clinical observations, patient history and epidemiological information in making a final diagnosis. For testing of asymptomatic individuals, assay performance characteristics and clinical utility have not been evaluated. Testing for SARS-CoV-2 (Severe acute respiratory syndrome coronavirus 2, formerly known as 2019 novel coronavirus or 2019-nCoV) to aid in the diagnosis of COVID-19 is performed using the [employer] SARS-CoV-2 Assay as authorized by the FDA Emergency Use Authorization (EUA). This EUA assay is intended for In-vitro Diagnostic (IVD) use with respiratory specimens such as nasopharyngeal swabs collected from individuals during the acute phase of infection. This assay is performed based on the instructions for use provided by [employer] and additional guidance provided by CDC and FDA. Testing is performed in the [facility] within the Department of Pathology and Laboratory Medicine at [facility], certified under the Clinical Laboratory Improvement Amendments of 1988 (CLIA), 42 U.S.C. 263a, to perform high complexity tests. Assay performance has been verified according to clinical laboratory regulatory requirements for use with specimens collected from individuals suspected of COVID-19. Test results are provided above. A result of Not Detected indicates that the viral RNA target is not present above the limit of detection, but does not preclude SARS-CoV-2 infection. False negative results may occur if a specimen is improperly collected, transported or handled; if amplification inhibitors are present; or if inadequate numbers of viral particles are present in the specimen. When a diagnostic test is negative, the possibility of a false negative result should be considered in the context of a patient's recent exposures and the presence of clinical signs and symptoms consistent with COVID-19. A result of Detected indicates that RNA from SARS-CoV-2 was detected and the patient is infected. As required or requested by public health authorities, positive specimens may be sent for additional testing. Positive and negative predictive values for this test are highly dependent on disease prevalence. A result of Invalid indicates that neither the viral RNA targets nor the internal control target was detected. An invalid result suggests the presence of inhibitors. Recollection and re-testing is recommended in the case of an invalid result. CDC COVID-19 criteria for testing on human specimens and clinical management guidance information are available at the CDC Coronavirus Disease 2019 (COVID-19) webpage under Information for Healthcare Professionals (https://www.cdc.gov/coronavirus/2019-ncov/hcp/index.html) Additional information about this and other EUA tests can be found in provider and patient fact sheets at the following FDA website: https://www.fda.gov/medical-devices/xgzacsnrnoo-iqowrgy-2001-hdwcy-03-jwswnqyhx- fce-pkrxwviuwxtjcp-sdlnmmk-devices/ltmea-xynjqhywhza-qtgo SARS-Cov-2 RNA Source ULTRASOUND SPEC Swab COVID-19 PCR [[id number]] Collected: 10/15/212032 Lab Status: Final result Specimen: Nasopharyngeal Swab Updated: 10/16/21 0004 SARS-CoV-2 RNA PCR Not Detected Comment: This result should be interpreted in combination with the clinical observations, patient history and epidemiological information. For testing of asymptomatic individuals, assay performance characteristics and clinical utility have not been evaluated. Testing for SARS-CoV-2 (Severe acute respiratory syndrome coronavirus 2, formerly known as 2019 novel coronavirus or 2019-nCoV) to aid in the diagnosis of COVID-19 is performed using the [employer] COVID-19 Direct Assay by [employer] as authorized by the FDA issued Emergency Use Authorization (EUA). This assay is intended for In-vitro Diagnostic (IVD) use with nasopharyngeal swabs collected from individuals meeting the CDC criteria for testing. The assay is performed based on the instructions for use and additional guidance provided by the FDA. Testing is performed in the Microbiology Laboratory within the Department of Pathology and Laboratory Medicine at [facility], certified under the Clinical Laboratory Improvement Amendments of 1988 (CLIA), 42 U.S.C. section 263a, to perform high complexity tests. Assay performance has been verified according to clinical laboratory regulatory requirements. Test results are provided above. A result of Not Detected indicates that the viral RNA target is not present but does not preclude SARS-CoV-2 infection. False negative results may occur if a specimen is improperly collected, transported or handled; if amplification inhibitors are present; or if inadequate numbers of viral particles are present in the specimen. A result of Detected suggests a current or recent infection and the patient is presumed to be infected. Positive and negative predictive values for this test are highly dependent on disease prevalence. A result of Invalid indicates the inability to conclusively determine the presence or absence of SARS-CoV-2 RNA in the sample which can be due to a variety of factors. Recollection is recommended in the case of an invalid result. CDC COVID-19 criteria for testing on human specimens and clinical management guidance information are available at the CDC Coronavirus Disease 2019 (COVID-19) webpage under Information for Healthcare Professionals (https://www.cdc.gov/coronavirus/2019-ncov/hcp/index.html). Additional information about this and other EUA tests can be found in provider and patient fact sheets at the following FDA website: https://www.fda.gov/medical-devices/mhelabsvewr-tyxzpgx-8214-cikxa-08-wdxqkntci- kpl-afkojgrfntsudj-dskclbi-devices/bggyj-xmergdpsaxo-hsax SARS-CoV-2 Source ULTRASOUND SPEC Swab Pertinent radiology/diagnostic studies: CT A/P w contrast 11/03 ?? IMPRESSION ?? 1. Ill defined opacities in lingula may represent pneumonia. Consider follow-up chest x-ray if indicated. 2. No abdominal or pelvic abscess seen. 3. Hiatal hernia with fat stranding around a thick walled and dilated distal esophagus. Finding may represent esophagitis. 4. Resolution of splenomegaly. 5. No enlarged abdominal and pelvic lymph nodes. 6. No abdominal or pelvic ascites. CXR 11/04 ?? IMPRESSION Radiographically the left basilar airspace opacity seen on 11/02/2021 has resolved and findings are now similar compared to a radiograph from 10/19/2021. However, it is uncertain to which extent the mild opacities seen on CT 11/03/2021 still persist or have resolved (due to difference in technique). ?? Within the limitation of single frontal view the change in positioning of the left subclavian central venous catheter in comparison to 10/19/2021 is due to the fact that the tip has flipped into the azygos vein (unchanged to 11/02/2021). Please correlate clinically if functionalityof this catheter remains adequate. ?? ASSESSMENT/PLAN: Luis Manuel Mobley Jr. is a 61 y.o. 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 now day + 13 (day 0 is 10/22) for MUD HSCT. Tolerated stem cell infusion well on 10/22, had some rigors and nausea post- infusion that resolved with medications. Counts remain low. Neutropenic fever on 11/02, cefepime escalated to zosyn, and then todaptomycin and cefepime after 1 day when BCx positive for VRE. ID consulted. Recommends removal of tunneled line, however, cannot get PICC placed today 11/04 so will keep the tunneled line in until tomorrow as the line does not appear to be infected and we need access. CT A/P on 11/03 w contrast did notshow abdominal infection but did show esophagitis as well as GGO in lingula, which was not observed in repeat CXR. Patient's high ostomy output (2-3L per day) initially improved with scheduled imodium. However, now unable to take po meds. Will hold off giving IVF b/c getting TPN. Lovenox stopped on 11/02 due to hemepositive stool and severe mucositis. For mucositis, on bmx, viscous lidocaine, morphine prn (dilaudid causes nausea). Started TPN on 10/31. Transitioned PO medication to IV as able. Today, unable to take po flecainide and metop. Put on tele For his bilateral feet neuropathy, will continue gabapentin to 200mg TID as tolerated Summary Plan: - cefepime and dapto for VRE, ID following - f/u tac level (IV tac 0.7mg bid) - IR to remove tunneled line after PICC placement - on tele b/c unable to take po a. Fib meds intermittently (flecanide and metop) - no auto electrolyte repletion prn b/c on TPN - continue morphine prn - continue IV tac 0.7mg bid - monitor ostomy output - continue zarxio from day +7 to when ANC > 1500 - monitor I/O and daily weights - tacrolimus level Thursday and - f/u weekly thursday CMV - f/u Thursday EBV every 2 weeks - f/u UCx 11/03 ?? Plan: #VRE bacteremia #Neutropenic fever - likely from gut translocation from mucositis - ID consulted, appreciate recs - abx: - cefepime 10/19 - 11/02, 11/03 - p - zosyn 11/02 - daptomycin 11/02 - p - f/u UCx 11/03 #STACIE, pre-renal, improving - pre-renal, noted on 10/27 - s/p 1L Bolus on 10/27 and 10/28, encourage imodium to thicken ostomy output - mIVF (10/29 -> 11/01) - continue to monitor #AML #MUD HSCT Day (-7): Fludarabine: Day (-6): Fludarabine, Busulfan, Rabbit ATG: Day (-5): Fludarabine, Busulfan, Rabbit ATG: Day (-4): Fludarabine, Busulfan, Rabbit ATG: Day (-3): Fludarabine, Busulfan: Day (0): Stem Cell Infusion: Day (+1): metHOTREXate: Day (+3): metHOTREXate: Day (+6): metHOTREXate: Day (+11): metHOTREXate: General - q4h vitals - strict Is/Os 2x daily - weigh patient 2x daily, notify provider if weight increases by 1kg or more in 12 hour period ?- lasix 20mg IV prn weight gain >1 kg above admission baseline ?- lasix 20mg IV for weight gain 1 kg over 12 hours or input exceeding output by greater than 1,000 ml/12h - neutropenic precautions - incentive spirometry q2h while awake - activity as tolerated - electrolyte replacement Chemotherapy/Support - Busulfan 204mg??day (-6) to day (-3) -??Fludarabine??61??mg 102ml infusion once over 30 minutes day -7 Then every 24 hours at 0900 for 4 doses day (-6) to day (-3) - Rabbit ATG??124.8mg over 10 hours day (-6), 166.4mg on day (-5) 208??on day (-4).?? - Day 0 stem cell infusion. Premedicate with acetaminophen 650mg, diphenhydramine 50mg) - Methotrexate??10mg??day (+1), day (+3), day (+6), day (+11). Hold for serum creatinine >2, bilirubin >5, fluid accumulation (large effusion or ascites), severe mucositis if potential need for intubation. - filgrastim??600mcg qd starting day (+7) until ANC >1500 ?? Laboratory Monitoring - weekly CMV PCR starting day +10, then weekly thereafter - IgG every 2 weeks starting day +1 to day +100 - U/A s/ reflex culture on admission, then daily on days -2, -1, 0? Transfusion parameters - Hgb <??7 - PLT <10, or if febrile??or bleeding??<20 - keep active T&S once hgb <8 ?? Prophylaxis Seizure ppx ?-phenytoin 300 day (-6) through (-1) - GI ppx ?- pantoprazole 40mg qd - mucositis ppx ?- supersaturated calcium phosphate oral solution 30ml 4x daily starting on admission until resolution of mucositis and ANC ?>500 - infection ppx ?- fluconazole 400mg qd starting day (0) ?- levofloxacin 750mg qd starting day (0) until ANC >500, changed tocefepime due to fever on 10/19 ?- acyclovir 800mg bid starting day (-7) ?- bactrim DS 1 tablet daily from day (-7) through day (-2) ?- bactrim DS 1 tablet MWF starting day (+30) - GVHD ppx?-??Tacrolimus??0.7mg IV bid?? - Started day (-2),?target 5-10 trough - VOD ppx ?- lovenox 40mg qd day (-7) through (+30) per Dr. Modi's note, he should continue lovenox 100mg qd until plt apx <40 then switch to VOD ppx dose. ?- ursodiol 300mg qAM??&??qPM day (-7) through day (+30) Hydration - NaCl 0.9% continuous??150ml/hr x??day (-6) ??Through (-3) ?? Pain/Nausea/Appetite - avoid acetaminophen through??day??(-3) - avoid steroid antiemetics - palonosetron 0.25mg day (-6) - aprepitant 130mg day (-6) prior to??busulfan - lorazepam 0.5mg IV q4h prn nausea, anxiety - ondansetron??8mg q8h prn nausea, vomiting beginning day (-3) - prochlorperazine 10mg IV q6h prn nausea, vomiting - use ondansetron >??prochlorperazine or promethazine >??lorazepam >??metoclopramide - olanzapine 5mg qhs starting day (-3) for 5 doses?? - dilaudid prn (10/31 - p) ?? #Fever, neutropenic - 102.9 10/19 - 100.8 11/02 - CXR benign - C. Diff negative - UA unremarkable - BCx 10/20 negative - BCx 11/02 pending - Zosyn 11/02 - cefepime 10/19 - 11/02, 11/03 - p - vanc 10/20 - 10/22 - daptomycin 11/02 - p #Paroxysmal Afib - Continue home metoprolol, flecainide - Tele ?? #Hx of provoked PE in Apr 2021 - On lovenox 100mg qd (held prior to central line placement) - Continue until plt reach approximately 40 followed by switch to prophylactic dosing - may not need upon discharge b/c s/p 3 months of AC ?? #Hx of C diff colitis - Continue home PO vancomycin as tolerated - Ostomy care #Bilateral Feet tingling - pt reports having baseline bilateral feet tingling that was noted to be worsened on on 10/21 (2 daysafter completing 5 days of fludarabine), strength intact, no loss of sensation - start gabapentin 100mg TID (10/21 - 10/23), 200mg TID (10/23 - p) #GERD - takes protonix at home - current regimen: protonix bid, carafate, tums, famotidine #Pancytopenia 2/2 to chemo and disease - continue to monitor, transfuse as needed for support #Routine DVT PPx: VOD ppx lovenox 40mg stopped on 11/02 (holding home dose 100mg) Diet: Neutropenic (BMT) diet Dispo: [facility] CODE STATUS: Attempt Cardiopulmonary Resuscitation - Inpatient Stacy Marni MD PGY1 Internal Medicine 11/04/2021 Heme/Onc/BMT Team A Pager #[phone] Denise Madera RN - 11/03/2021 6:38 PM EDT Patient Summary Reason for admission: Day +12 (11/03) of 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 Significant 24 hour events: 11/03 AM: Receiving platelets at change of shift this morning for plt count 14, post count 18. Continues with worsening mucositis, reluctant to take morphine, rating pain 5/10, unable to take any pills,morphine 2 mg IV given with no relief, 4 mg given with minimal relief, pt refused any further doses this shift; discussed inability to safely swallow pills with team, unable to take po Metoprolol XL; pt placed on telemetry monitoring, no events so far. Febrile to 38.9 @ 1515, MD notified, last blood cultures drawn at 0400 today; IV tylenol administered with good response; Cefepime started this evening; plan for CT Abd/Pelvis. Potassium and magnesium replaced, continues TPN. Weight continues below baseline. Action List Ostomy care, monitor output TPN Unable to take pills Telemetry monitoring (unable to take Metoprolol XL) PRN IV morphine- pain control Monitor for s/s of infection IV abx CT Abd/Pelvis with IV contrast Radha Marmolejo RN - 11/03/2021 7:41 AM EDT Patient Summary Reason for admission: Day +12 (11/03) of 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 11/02 PM Febrile to 39.5 @ 0630. IV Tylenol given at 0300. Continues with severe mucositis, refusing morphine. Blood cx from 11/02 day shift positive VRE. Zosyn switched to daptomycin. Continues with TPN. Platelets started, IV tylenol given at 0648. 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 Inpatient Hematology/Oncology/SCT Progress Note Patient info: Name: Luis Manuel Mobley Jr. : 1960 PCP: LEISA Munguia PCP phone number: [phone] Date of Admission: 10/15/2021 ( Hospital Day 19 days ) Service: Hem/Onc Team A pg [id number] (09/03) Responsible Attending:Urban Dos Santos MD ID: Luis Manuel Mobley Jr. is a 61 y.o. Male with hx of paroxysmal Afib, c diff colitis c/b toxic megacolon s/p bowel resection and colostomy in may 2021, FLT3+ AML with positive [employer] disease??s/p CR w/ 7+3+Midostaurin c/b relapse tx w ventoclax + gilteritinib (held since 10/08) most with pre-transplant BM and LP showing FELY, admitted for MUD allo HSCT.Today is day +12 (day 0 is 10/22), getting daptomycin for VRE bacteremia. Baseline weight: 107.1kg Donor: MUD ABO: Donor OO negative, recipient O positive HLA: 05/26 ID status: Donor and recipient both CMV negative Conditioning regimen: fludarabine, busulfan GVHD regimen: Rabbit ATG, methotrexate, tacrolimus 24 Hour Events: - Yesterday, febrile 38.3, tachycardic 100s, started on zosyn, BCx and CXR ordered, morphine with minimal effects for mucositis (only got 1 dose of 2mg and 4mg IV), unable to take most of po meds (po vanc, flecainide, metop) - Overnight, febrile to 101.3, BCx resulted VRE, changed zosyn to daptomycin, got 2 more BCx, got 1 u of platelet, unable to take pills, getting IV tylenol - This AM, febrile to 103, reports feeling very tired and discouraged - Weight 103.1 kg -> 102.3kg - In/Out: net -46 (stool 1.8L, TPN 2399ml) - Hgb 6.6 -> ordered one unit - ANC 0 - K 3.4 -> repleted with IV - Mg repleted - didn't get any morphine overnight Vitals: Last value Range last 24 hrs Temperature Temp: 37.6 ??C (99.7 ??F) Temp: [37.4 ??C (99.3 ??F)-39.4 ??C (103 ??F)] Heart Rate Heart Rate: (!) 110 Heart Rate: [110-111] Blood Pressure BP: 117/66 BP: (114-146)/(64-82) Respiratory Rate Resp: 22 Resp: [17-28] SpO2 SpO2: 95 % SpO2: [93 %-98 %] Intake/Output Summary (Last 24 hours) at 11/03/2021 0734 Last data filed at 11/03/2021 0726 Gross per 24 hour Intake 3871 ml Output 3100 ml Net 771 ml Patient Vitals for the past 168 hrs: Weight 11/03/21 0400 102.3 kg (225 lb 8.5 oz) 11/02/21 1618 103.1 kg (227 lb 4.7 oz) 11/02/21 0353 103.1 kg (227 lb 4.7 oz) 11/01/21 1705 102.9 kg (226 lb 13.7 oz) 11/01/21 0430 102.4 kg (225 lb 12 oz) 10/31/21 1647 102.3 kg (225 lb 8.5 oz) 10/31/21 0529 102 kg (224 lb 13.9 oz) 10/30/21 0420 101.2 kg (223 lb 1.7 oz) 10/29/21 1522 101.3 kg (223 lb 5.2 oz) 10/29/21 0338 100.4 kg (221 lb 5.5 oz) 10/28/21 1727 101.3 kg (223 lb 5.2 oz) 10/28/21 0558 100.1 kg (220 lb 10.9 oz) 10/27/21 1538 101.7 kg (224 lb 3.3 oz) Exam: GENERAL:?appeared in no acute distress, sleeping MOUTH: blood noted at posterior oropharynx, diffuse inflammation in oral mucosa CARDIOVASCULAR:??rrr no mrg PULMONARY:??CTAB on RA, no increased wob GASTROINTESTINAL:??Abdomen soft nontender to palpation w +BS. Colostomy with brown watery stool in place. SKIN:??No rashes, bruises or petechiae. ?? EXT: no Edema at ankles NEUROLOGICAL:??Alert and oriented to person, place and time. No focal deficits Medications: Scheduled Meds: ??? DAPTOmycin 10 mg/kg/dose (Adjusted) Intravenous Q24H ??? metoprolol succinate XL 50 mg Oral Daily ??? lidocaine 15 mL Mucous Membrane Q4H ??? ursodiol 300 mg Oral Daily with breakfast ??? ursodiol 600 mg Oral Daily with dinner ??? pantoprazole 40 mg Intravenous BID ??? acyclovir 250 mg/m2/dose (Anton) Intravenous Q12H ??? fluconazole 400 mg Intravenous Q24H ??? loperamide 2 mg Oral BID ??? tacrolimus 0.7 mg Intravenous 2 times per day ? ? bsrzbpjmd-prjbqwett-ja-mag-sim 5 mL Oral 4 Times Daily AC & HS ??? gabapentin 200 mg Oral TID ??? sodium chloride 0.9 % (flush) 5 mL Intravenous BID ??? vancomycin 125 mg Oral BID ??? flecainide 50 mg Oral BID ??? supersaturated calcium phosphate 30 mL Oral 4 Times Daily ??? [START ON 11/21/2021] sulfamethoxazole-trimethoprim DS 1 tablet Oral Daily ??? filgrastim-sndz 600 mcg Subcutaneous Daily Continuous Infusions: ??? TPN Adult 100 mL/hr at 11/02/21 1801 PRN Meds:.morphine OR morphine OR morphine, magnesium sulfate, magnesium sulfate, potassium chloride, potassium chloride ER, potassium chloride ER, acetaminophen, camphor-menthoL, loperamide, alum-mag hydroxide-simeth, calcium carbonate, sucralfate, furosemide, furosemide, sodium chloride 0.9 % (flush), lidocaine, LORazepam, ondansetron, prochlorperazine, heparin, porcine, sodium chloride 0.9% (flush) Labs: Recent Labs 11/03/21 0415 11/02/21 0350 11/01/21 1855 WBC 0.1* 0.0* 0.0* HGB 6.6* 7.9* 6.5* HCT 18.3* 21.3* 18.0* PLATELET 14* 31* 15* ANC 0 Recent Labs 11/03/21 0415 11/02/21 0350 11/01/21 0450 NA 140 141 140 K 3.4* 4.1 4.5 CL 108* 111* 116* CO2 19* 15* 15* BUN 36* 36* 40* CREATININE 1.32 1.29 1.26 Recent Labs 11/03/21 0415 11/02/21 0350 11/01/21 0450 CALCIUM 9.0 9.2 8.9 MAGNESIUM 0.73 0.76 0.58* PHOS 2.9 2.8 3.4 Recent Labs 11/02/21 0350 10/31/21 0415 10/28/21 0445 AST 16 18 26 ALT 41 42 65* ALKPHOS 121 118 104 BILITOT 0.4 0.3 0.3 BILIDIR 0.2 0.1 0.1 Recent Labs 11/01/21 1855 INR 1.2 PT 13.3* PTT 33 Microbiology: BCx 11/03: VRE UA 11/03: unremarakble BCx 3/6: NGTD UA 6: does not look infectious Microbiology Results (Last 30 days) Procedure Component Value Units Date/Time Blood culture [[id number]] (Abnormal) Collected: 11/02/21 1018 Lab Status: Preliminary result Specimen: Blood Updated: 11/03/21 0346 Blood Culture -- Enterococcus species detected by PCR Vancomycin Resistance Detected Susceptibility testing in progress Gram Stain Aerobic -- Growth detected in aerobic bottle. Gram Positive Cocci in pairs seen Gram Stain Anaerobic -- Growth detected in anaerobic bottle. Gram Positive Cocci in pairs seen Results called to and read back by Radha Marmolejo 11/03/21 02:42:51 VMartin Blood culture [[id number]] (Abnormal) Collected: 11/02/21 1018 Lab Status: Preliminary result Specimen: Blood Updated: 11/03/21 0425 Gram Stain Anaerobic -- Growth detected in anaerobic bottle. Gram Positive Cocci in pairs seen Gram Stain Aerobic -- Growth detected in aerobic bottle. Gram Positive Cocci in pairs seen C. Difficile Screen [[id number]] Collected: 10/28/21 1207 Lab Status: Final result Specimen: Stool Updated: 10/28/21 1334 C Diff Screen Negative Comment: Ag/Tox Neg C. diff?? Negative Clostridium difficile is not present in the specimen. If patient is having diarrhea suspected to be from an infectious cause, then Soap & Water Contact Precautions are still required. Blood culture [[id number]] Collected: 10/20/211731 Lab Status: Final result Specimen: Blood Updated: 10/25/21 2301 Blood Culture No growth at 5 days. Blood culture [[id number]] Collected: 10/20/21 173 Lab Status: Final result Specimen: Blood Updated: 10/25/21 2301 Blood Culture No growth at 5 days. Blood culture [[id number]] Collected: 10/19/21 1139 Lab Status: Final result Specimen: Blood from Antecubital, Left Updated: 10/24/21 1501 Blood Culture No growth at 5 days. Blood culture [[id number]] (Abnormal) Collected: 10/19/21 1133 Lab Status: Final result Specimen: Blood from Hand, Right Updated: 10/25/21 0910 Blood Culture -- Coagulase negative Staphylococcus species detected by PCR Interpretation of the importance of skin mitzy such as Coagulase Negative Staph, Viridans Strep, Corynebacteria and other Gram Positive organisms from a single Blood Culture set requires clinical correlation. Gram Stain Aerobic -- Growth detected in aerobic bottle. Gram Positive Cocci in clusters seen C. Difficile Screen [[id number]] Collected: 10/19/21 1020 Lab Status: Final result Specimen: Stool Updated: 10/19/21 1607 C Diff Screen Negative Comment: Ag/Tox Neg C. diff?? Negative Clostridium difficile is not present in the specimen. If patient is having diarrhea suspected to be from an infectious cause, then Soap & Water Contact Precautions are still required. COVID-19 PCR [[id number]] Collected: 10/19/21 0405 Lab Status: Final result Specimen: Nasopharyngeal Swab Updated: 10/19/21 1834 SARS-CoV-2 RNA Not Detected Comment: This result should be interpreted in combination with the clinical observations, patient history and epidemiological information in making a final diagnosis. For testing of asymptomatic individuals, assay performance characteristics and clinical utility have not been evaluated. Testing for SARS-CoV-2 (Severe acute respiratory syndrome coronavirus 2, formerly known as 2019 novel coronavirus or 2019-nCoV) to aid in the diagnosis of COVID-19 is performed using the [employer] SARS-CoV-2 Assay as authorized by the FDA Emergency Use Authorization (EUA). This EUA assay is intended for In-vitro Diagnostic (IVD) use with respiratory specimens such as nasopharyngeal swabs collected from individuals during the acute phase of infection. This assay is performed based on the instructions for use provided by [employer] and additional guidance provided by CDC and FDA. Testing is performed in the [facility] within the Department of Pathology and Laboratory Medicine at [facility], certified under the Clinical Laboratory Improvement Amendments of 1988 (CLIA), 42 U.S.C. 263a, to perform high complexity tests. Assay performance has been verified according to clinical laboratory regulatory requirements for use with specimens collected from individuals suspected of COVID-19. Test results are provided above. A result of Not Detected indicates that the viral RNA target is not present above the limit of detection, but does not preclude SARS-CoV-2 infection. False negative results may occur if a specimen is improperly collected, transported or handled; if amplification inhibitors are present; or if inadequate numbers of viral particles are present in the specimen. When a diagnostic test is negative, the possibility of a false negative result should be considered in the context of a patient's recent exposures and the presence of clinical signs and symptoms consistent with COVID-19. A result of Detected indicates that RNA from SARS-CoV-2 was detected and the patient is infected. As required or requested by public health authorities, positive specimens may be sent for additional testing. Positive and negative predictive values for this test are highly dependent on disease prevalence. A result of Invalid indicates that neither the viral RNA targets nor the internal control target was detected. An invalid result suggests the presence of inhibitors. Recollection and re-testing is recommended in the case of an invalid result. CDC COVID-19 criteria for testing on human specimens and clinical management guidance information are available at the CDC Coronavirus Disease 2019 (COVID-19) webpage under Information for Healthcare Professionals (https://www.cdc.gov/coronavirus/2019-ncov/hcp/index.html) Additional information about this and other EUA tests can be found in provider and patient fact sheets at the following FDA website: https://www.fda.gov/medical-devices/phdrdoeixdv-yyutdqw-3140-gjebl-25-jnmlhmpqo- xpq-vgwbowyujpjeqr-aozrjtp-devices/fktry-jqogykpqqoy-ckbo SARS-Cov-2 RNA Source ULTRASOUND SPEC Swab COVID-19 PCR [[id number]] Collected: 10/15/212032 Lab Status: Final result Specimen: Nasopharyngeal Swab Updated: 10/16/21 0004 SARS-CoV-2 RNA PCR Not Detected Comment: This result should be interpreted in combination with the clinical observations, patient history and epidemiological information. For testing of asymptomatic individuals, assay performance characteristics and clinical utility have not been evaluated. Testing for SARS-CoV-2 (Severe acute respiratory syndrome coronavirus 2, formerly known as 2019 novel coronavirus or 2019-nCoV) to aid in the diagnosis of COVID-19 is performed using the [employer] COVID-19 Direct Assay by [employer] as authorized by the FDA issued Emergency Use Authorization (EUA). This assay is intended for In-vitro Diagnostic (IVD) use with nasopharyngeal swabs collected from individuals meeting the CDC criteria for testing. The assay is performed based on the instructions for use and additional guidance provided by the FDA. Testing is performed in the Microbiology Laboratory within the Department of Pathology and Laboratory Medicine at [facility], certified under the Clinical Laboratory Improvement Amendments of 1988 (CLIA), 42 U.S.C. section 263a, to perform high complexity tests. Assay performance has been verified according to clinical laboratory regulatory requirements. Test results are provided above. A result of Not Detected indicates that the viral RNA target is not present but does not preclude SARS-CoV-2 infection. False negative results may occur if a specimen is improperly collected, transported or handled; if amplification inhibitors are present; or if inadequate numbers of viral particles are present in the specimen. A result of Detected suggests a current or recent infection and the patient is presumed to be infected. Positive and negative predictive values for this test are highly dependent on disease prevalence. A result of Invalid indicates the inability to conclusively determine the presence or absence of SARS-CoV-2 RNA in the sample which can be due to a variety of factors. Recollection is recommended in the case of an invalid result. CDC COVID-19 criteria for testing on human specimens and clinical management guidance information are available at the CDC Coronavirus Disease 2019 (COVID-19) webpage under Information for Healthcare Professionals (https://www.cdc.gov/coronavirus/2019-ncov/hcp/index.html). Additional information about this and other EUA tests can be found in provider and patient fact sheets at the following FDA website: https://www.fda.gov/medical-devices/fkafbqixong-uvnnoyt-5974-glhnh-60-elxaqgoot- cqz-acqenbdprcdaiz-kfzugev-devices/hyhor-mgvwcsktwao-ispi SARS-CoV-2 Source ULTRASOUND SPEC Swab Pertinent radiology/diagnostic studies: ASSESSMENT/PLAN: Luis Manuel Mobley Jr. is a 61 y.o. 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 now day + 12 (day 0 is 10/22) for MUD HSCT. Tolerated stem cell infusion well on 10/22, had some rigors and nausea post- infusion that resolved with medications. Counts remain low. Neutropenic fever on 11/02, cefepime escalated to zosyn, and then todaptomycin after 1 day when BCx positive for VRE. ID consulted. Appreciate recs. Patient's high ostomy output (2-3L per day) initially improved with scheduled imodium. However, now unable to take po meds. Will hold off giving IVF b/c getting TPN. Lovenox stopped on 11/02 due to hemepositive stool and severe mucositis. For mucositis, on bmx, viscous lidocaine, morphine prn (dilaudid causes nausea). Started TPN on 10/31. Transitioned PO medication to IV as able. Today, unable to take po flecainide and metop. Put on tele For his bilateral feet neuropathy, will continue gabapentin to 200mg TID as tolerated Summary Plan: - ID consulted for VRE - zosyn to daptomycin - restart cefepime for pseudomonal coverage - on tele b/c unable to take po a. Fib meds (flecanide and metop) - no auto electrolyte repletion prn b/c on TPN - continue morphine prn - continue IV tac 0.7mg bid - monitor ostomy output - continue zarxio from day +7 to when ANC > 1500 - monitor I/O and daily weights - tacrolimus level Thursday and - f/u UCx 11/03 ?? Plan: #VRE bacteremia #Neutropenic fever - likely from gut translocation from mucositis - ID consulted, appreciate recs - abx: - cefepime 10/19 - 11/02, 11/03 - p - zosyn 11/02 - daptomycin 11/02 - p - f/u UCx 11/03 #STACIE, pre-renal, improving - pre-renal, noted on 10/27 - s/p 1L Bolus on 10/27 and 10/28, encourage imodium to thicken ostomy output - mIVF (10/29 -> 11/01) - continue to monitor #AML #MUD HSCT Day (-7): Fludarabine: Day (-6): Fludarabine, Busulfan, Rabbit ATG: Day (-5): Fludarabine, Busulfan, Rabbit ATG: Day (-4): Fludarabine, Busulfan, Rabbit ATG: Day (-3): Fludarabine, Busulfan: Day (0): Stem Cell Infusion: Day (+1): metHOTREXate: Day (+3): metHOTREXate: Day (+6): metHOTREXate: Day (+11): metHOTREXate: General - q4h vitals - strict Is/Os 2x daily - weigh patient 2x daily, notify provider if weight increases by 1kg or more in 12 hour period ?- lasix 20mg IV prn weight gain >1 kg above admission baseline ?- lasix 20mg IV for weight gain 1 kg over 12 hours or input exceeding output by greater than 1,000 ml/12h - neutropenic precautions - incentive spirometry q2h while awake - activity as tolerated - electrolyte replacement Chemotherapy/Support - Busulfan 204mg??day (-6) to day (-3) -??Fludarabine??61??mg 102ml infusion once over 30 minutes day -7 Then every 24 hours at 0900 for 4 doses day (-6) to day (-3) - Rabbit ATG??124.8mg over 10 hours day (-6), 166.4mg on day (-5) 208??on day (-4).?? - Day 0 stem cell infusion. Premedicate with acetaminophen 650mg, diphenhydramine 50mg) - Methotrexate??10mg??day (+1), day (+3), day (+6), day (+11). Hold for serum creatinine >2, bilirubin >5, fluid accumulation (large effusion or ascites), severe mucositis if potential need for intubation. - filgrastim??600mcg qd starting day (+7) until ANC >1500 ?? Laboratory Monitoring - weekly CMV PCR starting day +10, then weekly thereafter - IgG every 2 weeks starting day +1 to day +100 - U/A s/ reflex culture on admission, then daily on days -2, -1, 0? Transfusion parameters - Hgb <??7 - PLT <10, or if febrile??or bleeding??<20 - keep active T&S once hgb <8 ?? Prophylaxis Seizure ppx ?-phenytoin 300 day (-6) through (-1) - GI ppx ?- pantoprazole 40mg qd - mucositis ppx ?- supersaturated calcium phosphate oral solution 30ml 4x daily starting on admission until resolution of mucositis and ANC ?>500 - infection ppx ?- fluconazole 400mg qd starting day (0) ?- levofloxacin 750mg qd starting day (0) until ANC >500, changed tocefepime due to fever on 10/19 ?- acyclovir 800mg bid starting day (-7) ?- bactrim DS 1 tablet daily from day (-7) through day (-2) ?- bactrim DS 1 tablet MWF starting day (+30) - GVHD ppx?-??Tacrolimus??0.7mg IV bid?? - Started day (-2),?target 5-10 trough - VOD ppx ?- lovenox 40mg qd day (-7) through (+30) per Dr. Modi's note, he should continue lovenox 100mg qd until plt apx <40 then switch to VOD ppx dose. ?- ursodiol 300mg qAM??&??qPM day (-7) through day (+30) Hydration - NaCl 0.9% continuous??150ml/hr x??day (-6) ??Through (-3) ?? Pain/Nausea/Appetite - avoid acetaminophen through??day??(-3) - avoid steroid antiemetics - palonosetron 0.25mg day (-6) - aprepitant 130mg day (-6) prior to??busulfan - lorazepam 0.5mg IV q4h prn nausea, anxiety - ondansetron??8mg q8h prn nausea, vomiting beginning day (-3) - prochlorperazine 10mg IV q6h prn nausea, vomiting - use ondansetron >??prochlorperazine or promethazine >??lorazepam >??metoclopramide - olanzapine 5mg qhs starting day (-3) for 5 doses?? - dilaudid prn (10/31 - p) ?? #Fever, neutropenic - 102.9 10/19 - 100.8 11/02 - CXR benign - C. Diff negative - UA unremarkable - BCx 10/20 negative - BCx 11/02 pending - Zosyn 11/02 - cefepime 10/19 - 11/02 - vanc 10/20 - 10/22 - daptomycin 11/02 - p #Paroxysmal Afib - Continue home metoprolol, flecainide - Discuss transition to IV medication with cardiology ?? #Hx of provoked PE in Apr 2021 - On lovenox 100mg qd (held prior to central line placement) - Continue until plt reach approximately 40 followed by switch to prophylactic dosing - may not need upon discharge b/c s/p 3 months of AC ?? #Hx of C diff colitis - Continue home PO vancomycin as tolerated - Ostomy care #Bilateral Feet tingling - pt reports having baseline bilateral feet tingling that was noted to be worsened on on 10/21 (2 daysafter completing 5 days of fludarabine), strength intact, no loss of sensation - start gabapentin 100mg TID (10/21 - 10/23), 200mg TID (10/23 - p) #GERD - takes protonix at home - current regimen: protonix bid, carafate, tums, famotidine #Pancytopenia 2/2 to chemo and disease - continue to monitor, transfuse as needed for support #Routine DVT PPx: VOD ppx lovenox 40mg stopped on 11/02 (holding home dose 100mg) Diet: Neutropenic (BMT) diet Dispo: [facility] CODE STATUS: Attempt Cardiopulmonary Resuscitation - Inpatient Stacy Marin MD PGY1 Internal Medicine 11/03/2021 Heme/Onc/BMT Team A Pager #[phone] Associated attestation - Urban Dos Santos MD - 11/03/2021 10:39 PM EDT BMT/Hematology Inpatient Staff Shared Addendum I have reviewed the above housestaff note and have participated in the direct care of this patient. I have discussed the case in detail with the team, reviewed all data and was directly involved in formulation of the patients clinical plan. Luis Manuel Mobley Jr. is a 61 y.o.male with high-risk (FLT3+) AML adm???d on 10/15 for [id number] via Flu/Bu/ATG regimen. Pretransplant course marked by dev't of C difficile colitis with toxic megacolon requiring [id number]-rweyegtxv, with ostomy, then dev't of 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 Patient Vitals for the past 168 hrs: Weight 11/02/21 0353 103.1 kg (227 lb 4.7 oz) 11/01/21 1705 102.9 kg (226 lb 13.7 oz) 11/01/21 0430 102.4 kg (225 lb 12 oz) 10/31/21 1647 102.3 kg (225 lb 8.5 oz) 10/31/21 0529 102 kg (224 lb 13.9 oz) 10/30/21 0420 101.2 kg (223 lb 1.7 oz) 10/29/21 1522 101.3 kg (223 lb 5.2 oz) 10/29/21 0338 100.4 kg (221 lb 5.5 oz) 10/28/21 1727 101.3 kg (223 lb 5.2 oz) 10/28/21 0558 100.1 kg (220 lb 10.9 oz) 10/27/21 1538 101.7 kg (224 lb 3.3 oz) 10/27/21 0524 100.4 kg (221 lb 5.5 oz) 10/26/21 1659 101.2 kg (223 lb 1.7 oz) Admit wt: 107.1 kg Continue hydration support with continuous IV. --> Will hold if his still output is confirmed reduced. Day +12 today Heme Zarxio started Mucositis- Tums, Maalox. Camphor, famotidine, pantoprazole. Will try magic mouthwash and viscous lidocaine. Continues to be an issue. Most meds switched to IV. ID Fever today(11/02) Broadened tto zosyn. Urine and Bcx drawn. Acyclovir and fluconazole ppx Cefepime for previous neutropenic fever. Fever was during his induction regimen. On oral Vanc ppx Bcx positive for VRE- on Daptomycin. Will consider line removal in the next few days if fevers persist given need for access. CT abdomen pelvis unremarkable. Likely translocation related to mucositis. GVHD Tac level 10/31 - 7.7 Tacrolimus now 2mg BID -> now IV 0.7 BID Started on Day -2 GI Course complicated by diarrhea from ostomy Output stable at this point. Imodium BID. Hydration PRN now. C diff negative--> started imodium Stool output under control. Wound care used silver nitrate on a small bleeder yesterday. VOD ppx Ursodiol and lovenox Lines: Minimal tenderness. DVT/PE: Hold lovenox Overall doing ok. On PPN/TPN. Urban Dos Santos MD Staff Physician [facility] Therapy Dolly Mcfadden RN - 11/02/2021 6:12 PM EDT Illness Severity [x] Stable Patient Summary Reason for admission: Day +11 (11/02) of 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 Significant 24 hour events: 11/02 AM: Pt febile this Am to 38.2x2. Zosyn started. BC and CXR obtained. Fever responded well to tylenol. Morphine given for mucositis/esophagitis pain with minimal effect. Unable to take majority of PO medications. Prioritized cardia meds per discussion with team. 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 Inpatient Hematology/Oncology/SCT Progress Note Patient info: Name: Luis Manuel Mobley Jr. : 1960 PCP: LEISA Munguia PCP phone number: [phone] Date of Admission: 10/15/2021 ( Hospital Day 18 days ) Service: Hem/Onc Team A pg [id number] (09/03) Responsible Attending:Urban Dos Santos MD ID: Luis Manuel Mobley Jr. is a 61 y.o. Male with hx of paroxysmal Afib, c diff colitis c/b toxic megacolon s/p bowel resection and colostomy in may 2021, FLT3+ AML with positive [employer] disease??s/p CR w/ 7+3+Midostaurin c/b relapse tx w ventoclax + gilteritinib (held since 10/08) most with pre-transplant BM and LP showing FELY, admitted for MUD allo HSCT.Today is day +11 (day 0 is 10/22). Baseline weight: 107.1kg Donor: MUD ABO: Donor OO negative, recipient O positive HLA: 10/10 ID status: Donor and recipient both CMV negative Conditioning regimen: fludarabine, busulfan GVHD regimen: Rabbit ATG, methotrexate, tacrolimus 24 Hour Events: - Mucositis continues to worsen - Continued on TPN/PPN - Max regimen for mucositis, continued to worsen - Transitioned most meds to IV - Continued on TPN - Fever to 38.2C this AM Vitals: Last value Range last 24 hrs Temperature Temp: (!) 38.2 ??C (100.8 ??F) (Temp recheck, RN notified) Temp: [37.1 ??C (98.7 ??F)-38.2 ??C (100.8 ??F)] Heart Rate Heart Rate: (!) 111 Heart Rate: [102-111] Blood Pressure BP: 146/82 BP: (126-164)/(69-103) Respiratory Rate Resp: 18 Resp: [18-20] SpO2 SpO2: 94 % SpO2: [94 %-97 %] Intake/Output Summary (Last 24 hours) at 11/02/2021 1039 Last data filed at 11/02/2021 0645 Gross per 24 hour Intake 3380 ml Output 3300 ml Net 80 ml Patient Vitals for the past 168 hrs: Weight 11/02/21 0353 103.1 kg (227 lb 4.7 oz) 11/01/21 1705 102.9 kg (226 lb 13.7 oz) 11/01/21 0430 102.4 kg (225 lb 12 oz) 10/31/21 1647 102.3 kg (225 lb 8.5 oz) 10/31/21 0529 102 kg (224 lb 13.9 oz) 10/30/21 0420 101.2 kg (223 lb 1.7 oz) 10/29/21 1522 101.3 kg (223 lb 5.2 oz) 10/29/21 0338 100.4 kg (221 lb 5.5 oz) 10/28/21 1727 101.3 kg (223 lb 5.2 oz) 10/28/21 0558 100.1 kg (220 lb 10.9 oz) 10/27/21 1538 101.7 kg (224 lb 3.3 oz) 10/27/21 0524 100.4 kg (221 lb 5.5 oz) 10/26/21 1659 101.2 kg (223 lb 1.7 oz) Exam: GENERAL:?appeared in no acute distress, sleeping MOUTH: blood noted at posterior oropharynx, diffuse inflammation in oral mucosa CARDIOVASCULAR:??rrr no mrg PULMONARY:??CTAB on RA, no increased wob GASTROINTESTINAL:??Abdomen soft nontender to palpation w +BS. Colostomy with brown watery stool in place. SKIN:??No rashes, bruises or petechiae. ?? EXT: no Edema at ankles NEUROLOGICAL:??Alert and oriented to person, place and time. No focal deficits Medications: Scheduled Meds: ??? piperacillin-tazobactam 3.375 g Intravenous Q8H ??? metoprolol succinate XL 50 mg Oral Daily ??? lidocaine 15 mL Mucous Membrane Q4H ??? ursodiol 300 mg Oral Daily with breakfast ??? ursodiol 600 mg Oral Daily with dinner ??? pantoprazole 40 mg Intravenous BID ??? acyclovir 250 mg/m2/dose (Anton) Intravenous Q12H ??? fluconazole 400 mg Intravenous Q24H ??? loperamide 2 mg Oral BID ??? tacrolimus 0.7 mg Intravenous 2 times per day ? ? bsmprztma-ojhfthmlk-tl-mag-sim 5 mL Oral 4 Times Daily AC & HS ??? gabapentin 200 mg Oral TID ??? sodium chloride 0.9 % (flush) 5 mL Intravenous BID ??? vancomycin 125 mg Oral BID ??? flecainide 50 mg Oral BID ??? supersaturated calcium phosphate 30 mL Oral 4 Times Daily ??? [START ON 11/21/2021] sulfamethoxazole-trimethoprim DS 1 tablet Oral Daily ??? metHOTREXate (PF) 5 mg/m2/dose (Treatment Plan Adjusted) Intravenous Once ??? filgrastim-sndz 600 mcg Subcutaneous Daily Continuous Infusions: ??? TPN Adult 100 mL/hr at 11/01/211944 PRN Meds:.morphine OR morphine OR morphine, magnesium sulfate, magnesium sulfate, potassium chloride, potassium chloride ER, potassium chloride ER, acetaminophen, camphor-menthoL, loperamide, alum-mag hydroxide-simeth, calcium carbonate, sucralfate, furosemide, furosemide, sodium chloride 0.9 % (flush), lidocaine, LORazepam, ondansetron, prochlorperazine, heparin, porcine, sodium chloride 0.9% (flush) Labs: Recent Labs 11/02/21 0350 11/01/21 1855 11/01/21 1200 11/01/21 0450 10/27/21 1250 10/27/21 0530 WBC 0.0* 0.0* -- 0.0* < > 0.4* HGB 7.9* 6.5* -- 6.0* < > 8.6* HCT 21.3* 18.0* -- 16.5* < > 25.0* PLATELET 31* 15* 19* 7* < > 10* NEUTROABS -- -- -- -- -- 0.39* < > = values in this interval not displayed. ANC 0 Recent Labs 11/02/21 0350 11/01/21 0450 10/31/21 0415 NA 141 140 140 K 4.1 4.5 4.8 CL 111* 116* 117* CO2 15* 15* 14* BUN 36* 40* 47* CREATININE 1.29 1.26 1.49 Recent Labs 11/02/21 0350 11/01/21 0450 10/31/21 0415 CALCIUM 9.2 8.9 9.0 MAGNESIUM 0.76 0.58* 0.77 PHOS 2.8 3.4 3.3 Recent Labs 11/02/21 0350 10/31/21 0415 10/28/21 0445 AST 16 18 26 ALT 41 42 65* ALKPHOS 121 118 104 BILITOT 0.4 0.3 0.3 BILIDIR 0.2 0.1 0.1 Recent Labs 11/01/21 1855 INR 1.2 PT 13.3* PTT 33 Microbiology: BCx 10/20: NGTD UA 10/20: does not look infectious Microbiology Results (Last 30 days) Procedure Component Value Units Date/Time C. Difficile Screen [[id number]] Collected: 10/28/21 1207 Lab Status: Final result Specimen: Stool Updated: 10/28/21 1334 C Diff Screen Negative Comment: Ag/Tox Neg C. diff?? Negative Clostridium difficile is not present in the specimen. If patient is having diarrhea suspected to be from an infectious cause, then Soap & Water Contact Precautions are still required. Blood culture [[id number]] Collected: 10/20/21 173 Lab Status: Final result Specimen: Blood Updated: 10/25/21 2301 Blood Culture No growth at 5 days. Blood culture [[id number]] Collected: 10/20/21 173 Lab Status: Final result Specimen: Blood Updated: 10/25/21 2301 Blood Culture No growth at 5 days. Blood culture [[id number]] Collected: 10/19/21 1139 Lab Status: Final result Specimen: Blood from Antecubital, Left Updated: 10/24/21 1501 Blood Culture No growth at 5 days. Blood culture [[id number]] (Abnormal) Collected: 10/19/21 1133 Lab Status: Final result Specimen: Blood from Hand, Right Updated: 10/25/21 0910 Blood Culture -- Coagulase negative Staphylococcus species detected by PCR Interpretation of the importance of skin mitzy such as Coagulase Negative Staph, Viridans Strep, Corynebacteria and other Gram Positive organisms from a single Blood Culture set requires clinical correlation. Gram Stain Aerobic -- Growth detected in aerobic bottle. Gram Positive Cocci in clusters seen C. Difficile Screen [[id number]] Collected: 10/19/21 1020 Lab Status: Final result Specimen: Stool Updated: 10/19/21 1607 C Diff Screen Negative Comment: Ag/Tox Neg C. diff?? Negative Clostridium difficile is not present in the specimen. If patient is having diarrhea suspected to be from an infectious cause, then Soap & Water Contact Precautions are still required. COVID-19 PCR [[id number]] Collected: 10/19/21 0405 Lab Status: Final result Specimen: Nasopharyngeal Swab Updated: 10/19/21 1834 SARS-CoV-2 RNA Not Detected Comment: This result should be interpreted in combination with the clinical observations, patient history and epidemiological information in making a final diagnosis. For testing of asymptomatic individuals, assay performance characteristics and clinical utility have not been evaluated. Testing for SARS-CoV-2 (Severe acute respiratory syndrome coronavirus 2, formerly known as 2019 novel coronavirus or 2019-nCoV) to aid in the diagnosis of COVID-19 is performed using the [employer] m SARS-CoV-2 Assay as authorized by the FDA Emergency Use Authorization (EUA). This EUA assay is intended for In-vitro Diagnostic (IVD) use with respiratory specimens such as nasopharyngeal swabs collected from individuals during the acute phase of infection. This assay is performed based on the instructions for use provided by [employer] and additional guidance provided by CDC and FDA. Testing is performed in the [facility] within the Department of Pathology and Laboratory Medicine at [facility], certified under the Clinical Laboratory Improvement Amendments of 1988 (CLIA), 42 U.S.C. 263a, to perform high complexity tests. Assay performance has been verified according to clinical laboratory regulatory requirements for use with specimens collected from individuals suspected of COVID-19. Test results are provided above. A result of Not Detected indicates that the viral RNA target is not present above the limit of detection, but does not preclude SARS-CoV-2 infection. False negative results may occur if a specimen is improperly collected, transported or handled; if amplification inhibitors are present; or if inadequate numbers of viral particles are present in the specimen. When a diagnostic test is negative, the possibility of a false negative result should be considered in the context of a patient's recent exposures and the presence of clinical signs and symptoms consistent with COVID-19. A result of Detected indicates that RNA from SARS-CoV-2 was detected and the patient is infected. As required or requested by public health authorities, positive specimens may be sent for additional testing. Positive and negative predictive values for this test are highly dependent on disease prevalence. A result of Invalid indicates that neither the viral RNA targets nor the internal control target was detected. An invalid result suggests the presence of inhibitors. Recollection and re-testing is recommended in the case of an invalid result. CDC COVID-19 criteria for testing on human specimens and clinical management guidance information are available at the CDC Coronavirus Disease 2019 (COVID-19) webpage under Information for Healthcare Professionals (https://www.cdc.gov/coronavirus/2019-ncov/hcp/index.html) Additional information about this and other EUA tests can be found in provider and patient fact sheets at the following FDA website: https://www.fda.gov/medical-devices/hdtflhhomte-pynlwxi-3832-upxnz-10-lyyumofzf- hia-aagiuuxwcczxil-jtccnul-devices/qzkue-bsepitnvbwh-endp SARS-Cov-2 RNA Source ULTRASOUND SPEC Swab COVID-19 PCR [[id number]] Collected: 10/15/212032 Lab Status: Final result Specimen: Nasopharyngeal Swab Updated: 10/16/21 0004 SARS-CoV-2 RNA PCR Not Detected Comment: This result should be interpreted in combination with the clinical observations, patient history and epidemiological information. For testing of asymptomatic individuals, assay performance characteristics and clinical utility have not been evaluated. Testing for SARS-CoV-2 (Severe acute respiratory syndrome coronavirus 2, formerly known as 2019 novel coronavirus or 2019-nCoV) to aid in the diagnosis of COVID-19 is performed using the [employer]plex[employer] COVID-19 Direct Assay by [employer] as authorized by the FDA issued Emergency Use Authorization (EUA). This assay is intended for In-vitro Diagnostic (IVD) use with nasopharyngeal swabs collected from individuals meeting the CDC criteria for testing. The assay is performed based on the instructions for use and additional guidance provided by the FDA. Testing is performed in the Microbiology Laboratory within the Department of Pathology and Laboratory Medicine at [facility], certified under the Clinical Laboratory Improvement Amendments of 1988 (CLIA), 42 U.S.C. section 263a, to perform high complexity tests. Assay performance has been verified according to clinical laboratory regulatory requirements. Test results are provided above. A result of Not Detected indicates that the viral RNA target is not present but does not preclude SARS-CoV-2 infection. False negative results may occur if a specimen is improperly collected, transported or handled; if amplification inhibitors are present; or if inadequate numbers of viral particles are present in the specimen. A result of Detected suggests a current or recent infection and the patient is presumed to be infected. Positive and negative predictive values for this test are highly dependent on disease prevalence. A result of Invalid indicates the inability to conclusively determine the presence or absence of SARS-CoV-2 RNA in the sample which can be due to a variety of factors. Recollection is recommended in the case of an invalid result. CDC COVID-19 criteria for testing on human specimens and clinical management guidance information are available at the CDC Coronavirus Disease 2019 (COVID-19) webpage under Information for Healthcare Professionals (https://www.cdc.gov/coronavirus/2019-ncov/hcp/index.html). Additional information about this and other EUA tests can be found in provider and patient fact sheets at the following FDA website: https://www.fda.gov/medical-devices/tbrgirdagan-jxtqkhw-2656-mecuw-14-qcjnaezvi- wyn-dryhppgeteyemu-zheargi-devices/rzszn-vrumnpifsio-jvpz SARS-CoV-2 Source ULTRASOUND SPEC Swab Pertinent radiology/diagnostic studies: ASSESSMENT/PLAN: Luis Manuel Mobley Jr. is a 61 y.o. 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 now day + 11 (day 0 is 10/22) for MUD HSCT. Tolerated stem cell infusion well on 10/22, had some rigors and nausea post- infusion that resolved with medications. Counts remain low. Fevered to 100.8 on 11/02. CXR benign, blood cultures drawn. Transitioned from cefepime to Zosyn due to high risk of infection given HSCT status. Patient's high ostomy output (2-3L per day) improved with scheduled imodium. STACIE improving with mIVF. CTM. For mucositis, on bmx, viscous lidocaine, morphine prn (dilaudid causes nausea). Started TPN on 10/31. Transitioned PO medication to IV as able. For his bilateral feet neuropathy, will continue gabapentin to 200mg TID as tolerated Summary Plan: - continue IV tac 0.7mg bid - monitor ostomy output - continue zarxio from day +7 to when ANC > 1500 - continue cefepime until ANC >500 - monitor I/O and daily weights - tacrolimus level Thursday and ?? Plan: #STACIE, pre-renal, improving - pre-renal, noted on 10/27 - s/p 1L Bolus on 10/27 and 10/28, encourage imodium to thicken ostomy output - mIVF (10/29 -> 11/01) - continue to monitor #AML #MUD HSCT Day (-7): Fludarabine: Day (-6): Fludarabine, Busulfan, Rabbit ATG: Day (-5): Fludarabine, Busulfan, Rabbit ATG: Day (-4): Fludarabine, Busulfan, Rabbit ATG: Day (-3): Fludarabine, Busulfan: Day (0): Stem Cell Infusion: Day (+1): metHOTREXate: Day (+3): metHOTREXate: Day (+6): metHOTREXate: Day (+11): metHOTREXate: General - q4h vitals - strict Is/Os 2x daily - weigh patient 2x daily, notify provider if weight increases by 1kg or more in 12 hour period ?- lasix 20mg IV prn weight gain >1 kg above admission baseline ?- lasix 20mg IV for weight gain 1 kg over 12 hours or input exceeding output by greater than 1,000 ml/12h - neutropenic precautions - incentive spirometry q2h while awake - activity as tolerated - electrolyte replacement Chemotherapy/Support - Busulfan 204mg??day (-6) to day (-3) -??Fludarabine??61??mg 102ml infusion once over 30 minutes day -7 Then every 24 hours at 0900 for 4 doses day (-6) to day (-3) - Rabbit ATG??124.8mg over 10 hours day (-6), 166.4mg on day (-5) 208??on day (-4).?? - Day 0 stem cell infusion. Premedicate with acetaminophen 650mg, diphenhydramine 50mg) - Methotrexate??10mg??day (+1), day (+3), day (+6), day (+11). Hold for serum creatinine >2, bilirubin >5, fluid accumulation (large effusion or ascites), severe mucositis if potential need for intubation. - filgrastim??600mcg qd starting day (+7) until ANC >1500 ?? Laboratory Monitoring - weekly CMV PCR starting day +10, then weekly thereafter - IgG every 2 weeks starting day +1 to day +100 - U/A s/ reflex culture on admission, then daily on days -2, -1, 0? Transfusion parameters - Hgb <??6.5 - PLT <10, or if febrile??or bleeding??<20 - keep active T&S once hgb <8 ?? Prophylaxis Seizure ppx ?-phenytoin 300 day (-6) through (-1) - GI ppx ?- pantoprazole 40mg qd - mucositis ppx ?- supersaturated calcium phosphate oral solution 30ml 4x daily starting on admission until resolution of mucositis and ANC ?>500 - infection ppx ?- fluconazole 400mg qd starting day (0) ?- levofloxacin 750mg qd starting day (0) until ANC >500, changed tocefepime due to fever on 10/19 ?- acyclovir 800mg bid starting day (-7) ?- bactrim DS 1 tablet daily from day (-7) through day (-2) ?- bactrim DS 1 tablet MWF starting day (+30) - GVHD ppx?-??Tacrolimus??0.7mg IV bid?? - Started day (-2),?target 5-10 trough - VOD ppx ?- lovenox 40mg qd day (-7) through (+30) per Dr. Modi's note, he should continue lovenox 100mg qd until plt apx <40 then switch to VOD ppx dose. ?- ursodiol 300mg qAM??&??qPM day (-7) through day (+30) Hydration - NaCl 0.9% continuous??150ml/hr x??day (-6) ??Through (-3) ?? Pain/Nausea/Appetite - avoid acetaminophen through??day??(-3) - avoid steroid antiemetics - palonosetron 0.25mg day (-6) - aprepitant 130mg day (-6) prior to??busulfan - lorazepam 0.5mg IV q4h prn nausea, anxiety - ondansetron??8mg q8h prn nausea, vomiting beginning day (-3) - prochlorperazine 10mg IV q6h prn nausea, vomiting - use ondansetron >??prochlorperazine or promethazine >??lorazepam >??metoclopramide - olanzapine 5mg qhs starting day (-3) for 5 doses?? - dilaudid prn (10/31 - p) ?? #Fever, - 102.9 10/19 - 100.8 11/02 - CXR benign - C. Diff negative - UA unremarkable - BCx 10/20 negative - BCx 11/02 pending - Zosyn 11/02 - p - cefepime 10/19 - 11/02 - vanc 10/20 - 10/22 #Paroxysmal Afib - Continue home metoprolol, flecainide - Discuss transition to IV medication with cardiology ?? #Hx of provoked PE in Apr 2021 - On lovenox 100mg qd (held prior to central line placement) - Continue until plt reach approximately 40 followed by switch to prophylactic dosing. ?? #Hx of C diff colitis - Continue home PO vancomycin as tolerated - Ostomy care #Bilateral Feet tingling - pt reports having baseline bilateral feet tingling that was noted to be worsened on on 10/21 (2 daysafter completing 5 days of fludarabine), strength intact, no loss of sensation - start gabapentin 100mg TID (10/21 - 10/23), 200mg TID (10/23 - p) #GERD - takes protonix at home - current regimen: protonix bid, carafate, tums, famotidine #Pancytopenia 2/2 to chemo and disease - continue to monitor, transfuse as needed for support #Routine DVT PPx: VOD ppx lovenox 40mg b/c platelet < 40 (holding home dose 100mg) Diet: Neutropenic (BMT) diet Dispo: [place] CODE STATUS: Attempt Cardiopulmonary Resuscitation - Inpatient Tonio Diaz Jr, MD PGY2 Internal Medicine 11/02/2021 Heme/Onc/BMT Team A Pager #[phone] Associated attestation - Urban Dos Santos MD - 11/02/2021 10:46 PM EDT BMT/Hematology Inpatient Staff Shared Addendum I have reviewed the above housestaff note and have participated in the direct care of this patient. I have discussed the case in detail with the team, reviewed all data and was directly involved in formulation of the patients clinical plan. Luis Manuel Mobley . is a 61 y.o.male with high-risk (FLT3+) AML adm???d on 10/15 for PFL-Xwvo-PDK via Flu/Bu/ATG regimen. Pretransplant course marked by dev't of C difficile colitis with toxic megacolon requiring zhi-iwbxr-gqxvmyfcq, with ostomy, then dev't of 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 Patient Vitals for the past 168 hrs: Weight 11/02/21 1618 103.1 kg (227 lb 4.7 oz) 11/02/21 0353 103.1 kg (227 lb 4.7 oz) 11/01/21 1705 102.9 kg (226 lb 13.7 oz) 11/01/21 0430 102.4 kg (225 lb 12 oz) 10/31/21 1647 102.3 kg (225 lb 8.5 oz) 10/31/21 0529 102 kg (224 lb 13.9 oz) 10/30/21 0420 101.2 kg (223 lb 1.7 oz) 10/29/21 1522 101.3 kg (223 lb 5.2 oz) 10/29/21 0338 100.4 kg (221 lb 5.5 oz) 10/28/21 1727 101.3 kg (223 lb 5.2 oz) 10/28/21 0558 100.1 kg (220 lb 10.9 oz) 10/27/21 1538 101.7 kg (224 lb 3.3 oz) 10/27/21 0524 100.4 kg (221 lb 5.5 oz) Continue hydration support with continuous IV. --> Will hold if his still output is confirmed reduced. Day +11 today Heme Zarxio started Mucositis- Tums, Maalox. Camphor, famotidine, pantoprazole. Will try magic mouthwash and viscous lidocaine. Continues to be an issue. Most meds switched to IV. D11 Mtx today. ID Fever today(11/02) Broadened tto zosyn. Urine and Bcx drawn. Acyclovir and fluconazole ppx Cefepime for previous neutropenic fever. Fever was during his induction regimen. On oral Vanc ppx GVHD Tac level 10/31 - 7.7 Tacrolimus now 2mg BID -> now IV 0.7 BID Started on Day -2 GI Course complicated by diarrhea from ostomy Output stable at this point. Imodium BID. Hydration PRN now. C diff negative--> started imodium Stool output under control. Wound care used silver nitrate on a small bleeder yesterday. VOD ppx Ursodiol and lovenox Lines: Minimal tenderness. DVT/PE: Hold lovenox. Overall doing ok. On PPN/TPN. Urban Dos Santos MD Staff Physician [facility] Cellular Therapy Radha Marmolejo RN - 11/02/2021 7:29 AM EDT Patient Summary Reason for admission: Day +11 (11/01) of 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 10/31 PM Pt febrile to 37.9, refused Tylenol. Had morphine x 2 with good effect. Had blood and platelets, recheck hgb 7.9, platelet 31. Had 18 ga.PIV R FA placed. BP elevated after blood and platelets to 169/101. notified, will monitor, improved at 0400 vitals. 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 Significant 24 hour events: 11/01 AM: VSS on RA. C/o heartburn/esophagitis pain. Urine and stool both heme pos. Complaints of esophagitis pain but refusing pain medication. Took morning meds but refused afternoon pass (gabapentin and liquid lidocaine). Pt spent a majority of the day sleeping, only up to go to the bathroom. Gave 1unit of RBC's and 1 unit of PLT's tolerated both well. Post PLT 19. Replaced Mag, no recheck. D/C'd the LR infusion. PRN morphine ordered. Ostomy outputting dark green, liquid stool. Utilize puddingover applesauce to give any pills, he stated that it hurts less. Notified MD of new petechiae on left arm, changed BP cuff to right arm for now to see if that helps to prevent further ecchymosis. No further discussion about SWATCHER for pt, trying the PRN morphine first but pt refusing. MD changed ursodiolto oral liquid. Around 1800 he began to spit up bloody mucus, MD notified and wants a large bore IV places. Vascular paged. Pt resting in between care. Mother came to visit today and gf called to checkin. 10/31 PM A & O and VSS this shift. Ostomy output liquid stool, connected to overnight bag. LR continues at 75cc/hr as well as PPN continuous Not able to swallow pills. Needed to break capsules open and crush pills and put over 1 spoonful of apple sauce. This was very difficult for him to swallow. Got MD to change metoprolol PO to once daily dosing. Pt with much increased pain r/t esophagitis. Morphine 1mg IV x 1 extra dose as prn not due yet. Given prn 2mg IV morphine dose prn. Able to tolerate diluted in 10cc NS and pushed slowly with no n/v. Did not premedicate with an antiemetic. Pt is miserable, feeling the worst he's ever felt. Broached the idea of a SWATCHER to MD. He will pass on the day team. Hem 6.0 and platelets 7. Notified MD for transfusion orders. 1 Unit blood hung per tranfusion policy. Will continue to monitor. Notify MD of changes. Chemo plan & supportive medication: Fludarabine/ Busulfan/ATG/MTX Baseline Weight: 107.1 kg AM weight: 102.4 kg PM weight: 102.9 kg Action List MTX Day +11 (11/02) Ostomy care, monitor output - imodium BID TPN Pudding for pills PRN IV morphine- pain control Fadumo Ortiz PTA - 11/01/2021 3:57 PM EDT 11/01/21 1944 Evaluation & Treatment Document Type contact Total Minutes, Physical Therapy 0 Comment, Session Not Performed Attempted to work w/ pt this PM for continued PT services. Pt declined, stating he was in 9/10 pain and wished to rest. Encouraged pt to ambulate this weekend w/ staff air tactical officer, to which he was agreeable. Will f/u next week for formal PT session. Fadumo Ortiz BREAKER ENGINEER Pager: [phone] Physical Therapy Inpatient Rehab Department Claudia Claros, RD - 11/01/2021 1:24 PM EDT Images from the original note were not included. Nutrition Consult Note Luis Manuel Mobley Jr. is a 61 y.o. 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 Reason for intervention: TPN Comments: TPN to provide 100g dextrose, 100g protein, and 40g lipid in 2,400mL. 1/2 NS. D/t issue with TPN communications analyst, pended base TPN if custom cannot be made. Daily BMP with mag and phos please. Weekly LFTs and TG while on TPN. Monitor wt daily I was able to discuss plan with provider Ian Diaz MD Hem/Onc pager #[phone]. Nutrition Support: TPN Medication Recent History (Show up to 3 orders; newest on the left.) Start date and time 11/01/2021 1800 TPN Adult [[id number]] Order Status Active Frequency Continuous (1800) Additives adult multivitamin 5 mL adult trace elements Zn-Cu-Mn-Se (Tralement) 0.5 mL folic acid 400 mcg Vit A0-G0-N9-B5-B6 (B Complex) 1 mL Electrolytes potassium phosphate 15 mmol potassium chloride 28 mEq sodium chloride 46 mEq sodium acetate 140 mEq calcium gluconate 8 mEq magnesium sulfate 28 mEq Dextrose dextrose 70% 100 g Amino Acids amino acid 15% no.5 (ClinisoL) 100 g QS Base sterile water 1,326.22 mL Lipid fat emulsion (Intralipid) 30 % 40 g Energy Contribution Proteins 400 kcal Dextrose 340.1 kcal Lipids 399 kcal Total 1,139.1 kcal Electrolyte Ion Calculated Amount Sodium 186 mEq Potassium 50 mEq Calcium 8 mEq Magnesium 28 mEq Aluminum -- Phosphate 17 mmol Chloride 74 mEq Acetate 224.67 mEq Chloride: Acetate Ratio 0.33 Trace Elements Copper 0.15 mg Manganese 27.5 mcg Selenium 30 mcg Zinc 1.5 mg Other Total Amino Acid 100 g Total Amino Acid/kg 0.98 g/kg Glucose Infusion Rate 0.68 mg/kg/min Osmolarity 862.87 Volume 2,400 mL Rate 100 mL/hr Dosing Weight 102.4 kg Infusion Site Central Total Multi-vitamins 5 mL Lab Results Component Value Date NA 140 11/01/2021 K 4.5 11/01/2021 CL 116 (H) 11/01/2021 CO2 15 (L) 11/01/2021 BUN 40 (H) 11/01/2021 CREATININE 1.26 11/01/2021 ESTGFR 61 11/01/2021 MAGNESIUM 0.58 (L) 11/01/2021 CALCIUM 8.9 11/01/2021 PHOS 3.4 11/01/2021 AST 18 10/31/2021 ALT 42 10/31/2021 ALKPHOS 118 10/31/2021 BILITOT 0.3 10/31/2021 BILIDIR 0.1 10/31/2021 TRIG 171 07/13/2021 HA1C 4.8 07/13/2021 KCUAYTER19 1,799 (H) 08/01/2021 SFOLATE 5.6 08/01/2021 IRON [...] IV sites Other Sites: ostomy Relevant medications: BMX, imodium, methotrexate, protonix, caphosol, prograf, LR at 75ml/hr, liquidtylenol prn Last Bowel Movement: 10/30/21 Intake/Output Summary (Last 24 hours) at 11/01/2021 1324 Last data filed at 11/01/2021 1200 Gross per 24 hour Intake 4335 ml Output 3550 ml Net 785 ml Admit Weight: 107.1 kg Estimated body mass index is 32.69 kg/m?? as calculated from the following: Height as of this encounter: 177 cm (5' 9.69). Weight as of this encounter: 102.4 kg (225 lb 12 oz). Anton Body Weight: 74.6 kg Usual Body Weight: 235 lbs per pt Wt Readings from Last 10 Encounters: 11/01/21 102.4 kg (225 lb 12 oz) 10/15/21 107.8 kg (237 lb 9.6 oz) 10/04/21 107.2 kg (236 lb 6.4 oz) 09/27/21 109 kg (240 lb 6.4 oz) 09/16/21 105.9 kg (233 lb 6.4 oz) 09/12/21 106.6 kg (235 lb) 09/09/21 102.8 kg (226 lb 9.6 oz) 09/05/21 106.8 kg (235 lb 6.4 oz) 08/26/21 102.8 kg (226 lb 9.6 oz) 08/19/21 100.2 kg (221 lb) Assessment: Estimated needs: Calories: 1865 (25 kcal/kg IBW) Protein: 89-112 grams (1.2-1.5 g/kg IBW) Nutrition Focused Physical Exam (NFPE): Performed on 10/28/21. Subcutaneous fat loss at Orbital region: None present Upper arm region (triceps/biceps): None present Thoracic and lumbar region (ribs, lower back and maxillary line): Not assessed Lean muscle loss to Orthodoxy region (temporalis muscle): None present Clavicle bone region (pectoralis major): None present Dorsal hand (interosseous muscle): None present Shoulder (deltoid): None present Scapular bone region (latissimus dorsi, trapezius muscles): Not assessed Thigh region (quadriceps muscle): None present Posterior calf region (gastrocnemius muscle): None present Fluid accumulation: Not assessed Nutrition intake and intake history/Interview: Please see note from Caridad Patricia for full nutrition assessment. Protein-calorie Malnutrition: Not enough data to assess (Cameron JPEN J Parenteral Enteral Nutr. 2012 December; 36(3): 273-83) Nutrition to continue to follow up while inpatient. Thank you, Claudia Claros RD Pager #:[phone] Stacy Marin MD - 11/01/2021 7:26 AM EDT Images from the original note were not included. Inpatient Hematology/Oncology/SCT Progress Note Patient info: Name: Luis Manuel Mobley Jr. : 1960 PCP: LEISA Munguia PCP phone number: [phone] Date of Admission: 10/15/2021 ( Hospital Day 17 days ) Service: Hem/Onc Team A pg 8411 (09/03) Responsible Attending:Urban Dos Santos MD ID: Luis Manuel Mobley Jr. is a 61 y.o. 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 Baseline weight: 107.1kg Donor: MUD ABO: Donor OO negative, recipient O positive HLA: 05/26 ID status: Donor and recipient both CMV negative Conditioning regimen: fludarabine, busulfan GVHD regimen: Rabbit ATG, methotrexate, tacrolimus 24 Hour Events: - Yesterday, refused BMX, carafate, maalox, and tums saying those aren't helping, started on PPN , refused to walk - Overnight, unable to swallow pills, pt reports the worse he's ever felt, changed to metop succinate 50, platelet and pRBC ordered, got an extra dose of morphine 1mg b/c morphine 2mg IV q4h prn not enough - This AM, reports severe mouth and esophagus pain, not able to eat/drink anything - Weight: 102 -> 102.4kg - In/Out: 700 po, net positive 1.5L, stool 500 Vitals: Last value Range last 24 hrs Temperature Temp: 37.7 ??C (99.9 ??F) Temp: [36.7 ??C (98.1 ??F)-37.7 ??C (99.9 ??F)] Heart Rate Heart Rate: 100 Heart Rate: [75-100] Blood Pressure BP: 146/82 BP: (133-149)/(74-82) Respiratory Rate Resp: 22 Resp: [16-23] SpO2 SpO2: 96 % SpO2: [96 %-100 %] Intake/Output Summary (Last 24 hours) at 11/01/2021 0726 Last data filed at 11/01/2021 0438 Gross per 24 hour Intake 4109 ml Output 2275 ml Net 1834 ml Patient Vitals for the past 168 hrs: Weight 11/01/21 0430 102.4 kg (225 lb 12 oz) 10/31/21 1647 102.3 kg (225 lb 8.5 oz) 10/31/21 0529 102 kg (224 lb 13.9 oz) 10/30/21 0420 101.2 kg (223 lb 1.7 oz) 10/29/21 1522 101.3 kg (223 lb 5.2 oz) 10/29/21 0338 100.4 kg (221 lb 5.5 oz) 10/28/21 1727 101.3 kg (223 lb 5.2 oz) 10/28/21 0558 100.1 kg (220 lb 10.9 oz) 10/27/21 1538 101.7 kg (224 lb 3.3 oz) 10/27/21 0524 100.4 kg (221 lb 5.5 oz) 10/26/21 1659 101.2 kg (223 lb 1.7 oz) 10/26/21 0339 101.5 kg (223 lb 12.3 oz) 10/25/21 1829 102.3 kg (225 lb 8.5 oz) Exam: GENERAL:?appeared in no acute distress, sleeping MOUTH: blood noted at posterior oropharynx, diffuse inflammation in oral mucosa CARDIOVASCULAR:??rrr no mrg PULMONARY:??CTAB on RA, no increased wob GASTROINTESTINAL:??Abdomen soft nontender to palpation w +BS. Colostomy with brown watery stool in place. SKIN:??No rashes, bruises or petechiae. ?? EXT: no Edema at ankles NEUROLOGICAL:??Alert and oriented to person, place and time. No focal deficits Medications: Scheduled Meds: ??? metoprolol succinate XL 50 mg Oral Daily ??? acyclovir 250 mg/m2/dose (Anton) Intravenous Q12H ??? fluconazole 400 mg Intravenous Q24H ??? pantoprazole 40 mg Intravenous Daily ??? ceFEPime 2 g Intravenous Q8H ??? loperamide 2 mg Oral BID ??? tacrolimus 0.7 mg Intravenous 2 times per day ? ? dirffmlfw-abddwpgct-mp-mag-sim 5 mL Oral 4 Times Daily AC & HS ??? enoxaparin 40 mg Subcutaneous Daily ??? gabapentin 200 mg Oral TID ??? sodium chloride 0.9 % (flush) 5 mL Intravenous BID ??? vancomycin 125 mg Oral BID ??? flecainide 50 mg Oral BID ??? supersaturated calcium phosphate 30 mL Oral 4 Times Daily ??? [START ON 11/21/2021] sulfamethoxazole-trimethoprim DS 1 tablet Oral Daily ??? ursodioL 300 mg Oral Daily with breakfast ??? ursodioL 600 mg Oral Daily with dinner ??? [START ON 11/02/2021] metHOTREXate (PF) 5 mg/m2/dose (Treatment Plan Adjusted) Intravenous Once ??? filgrastim-sndz 600 mcg Subcutaneous Daily Continuous Infusions: ??? amino acid 4.25% in dextrose 5% with electrolytes (Peripheral TPN) 63 mL/hr at 10/31/21 1738 ??? lactated Ringers 75 mL/hr (10/31/21 1150) PRN Meds:.acetaminophen, morphine, camphor-menthoL, lidocaine, loperamide, alum- mag hydroxide-simeth, calcium carbonate, sucralfate, furosemide, furosemide, sodium chloride 0.9 % (flush), lidocaine, LORazepam, ondansetron, prochlorperazine, heparin, porcine, sodium chloride 0.9 % (flush) Labs: Recent Labs 11/01/21 0450 10/31/21 0854 10/31/21 0415 10/30/21 0915 10/30/21 0345 10/27/21 1250 10/27/21 0530 10/26/21 0325 WBC 0.0* -- 0.0* -- 0.0* < > 0.4* 0.6* HGB 6.0* -- 6.9* -- 6.6* < > 8.6* 8.1* HCT 16.5* -- 19.6* -- 18.9* < > 25.0* 22.9* PLATELET 7* 19* 7* < > 9* < > 10* 16* NEUTROABS -- -- -- -- -- -- 0.39* 0.53* < > = values in this interval not displayed. ANC 0 Recent Labs 11/01/21 0450 10/31/21 0415 10/30/21 0345 NA 140 140 139 K 4.5 4.8 5.1* CL 116* 117* 117* CO2 15* 14* 12* BUN 40* 47* 57* CREATININE 1.26 1.49 1.69* Recent Labs 11/01/21 0450 10/31/21 0415 10/30/21 0345 CALCIUM 8.9 9.0 9.1 MAGNESIUM 0.58* 0.77 0.62* PHOS 3.4 3.3 3.8 Recent Labs 10/31/21 0415 10/28/21 0445 AST 18 26 ALT 42 65* ALKPHOS 118 104 BILITOT 0.3 0.3 BILIDIR 0.1 0.1 No results for input(s): INR, PT, PTT in the last 72 hours. Microbiology: BCx 10/20: NGTD UA 10/20: does not look infectious Microbiology Results (Last 30 days) Procedure Component Value Units Date/Time C. Difficile Screen [[id number]] Collected: 10/28/21 1207 Lab Status: Final result Specimen: Stool Updated: 10/28/21 1334 C Diff Screen Negative Comment: Ag/Tox Neg C. diff?? Negative Clostridium difficile is not present in the specimen. If patient is having diarrhea suspected to be from an infectious cause, then Soap & Water Contact Precautions are still required. Blood culture [[id number]] Collected: 10/20/211731 Lab Status: Final result Specimen: Blood Updated: 10/25/21 2301 Blood Culture No growth at 5 days. Blood culture [[id number]] Collected: 10/20/211731 Lab Status: Final result Specimen: Blood Updated: 10/25/21 2301 Blood Culture No growth at 5 days. Blood culture [[id number]] Collected: 10/19/21 1139 Lab Status: Final result Specimen: Blood from Antecubital, Left Updated: 10/24/21 1501 Blood Culture No growth at 5 days. Blood culture [[id number]] (Abnormal) Collected: 10/19/21 1133 Lab Status: Final result Specimen: Blood from Hand, Right Updated: 10/25/21 0910 Blood Culture -- Coagulase negative Staphylococcus species detected by PCR Interpretation of the importance of skin mitzy such as Coagulase Negative Staph, Viridans Strep, Corynebacteria and other Gram Positive organisms from a single Blood Culture set requires clinical correlation. Gram Stain Aerobic -- Growth detected in aerobic bottle. Gram Positive Cocci in clusters seen C. Difficile Screen [[id number]] Collected: 10/19/21 1020 Lab Status: Final result Specimen: Stool Updated: 10/19/21 1607 C Diff Screen Negative Comment: Ag/Tox Neg C. diff?? Negative Clostridium difficile is not present in the specimen. If patient is having diarrhea suspected to be from an infectious cause, then Soap & Water Contact Precautions are still required. COVID-19 PCR [[id number]] Collected: 10/19/21 0405 Lab Status: Final result Specimen: Nasopharyngeal Swab Updated: 10/19/21 1834 SARS-CoV-2 RNA Not Detected Comment: This result should be interpreted in combination with the clinical observations, patient history and epidemiological information in making a final diagnosis. For testing of asymptomatic individuals, assay performance characteristics and clinical utility have not been evaluated. Testing for SARS-CoV-2 (Severe acute respiratory syndrome coronavirus 2, formerly known as 2019 novel coronavirus or 2019-nCoV) to aid in the diagnosis of COVID-19 is performed using the [employer] m SARS-CoV-2 Assay as authorized by the FDA Emergency Use Authorization (EUA). This EUA assay is intended for In-vitro Diagnostic (IVD) use with respiratory specimens such as nasopharyngeal swabs collected from individuals during the acute phase of infection. This assay is performed based on the instructions for use provided by [employer] and additional guidance provided by CDC and FDA. Testing is performed in the [facility] within the Department of Pathology and Laboratory Medicine at [facility], certified under the Clinical Laboratory Improvement Amendments of 1988 (CLIA), 42 U.S.C. 263a, to perform high complexity tests. Assay performance has been verified according to clinical laboratory regulatory requirements for use with specimens collected from individuals suspected of COVID-19. Test results are provided above. A result of Not Detected indicates that the viral RNA target is not present above the limit of detection, but does not preclude SARS-CoV-2 infection. False negative results may occur if a specimen is improperly collected, transported or handled; if amplification inhibitors are present; or if inadequate numbers of viral particles are present in the specimen. When a diagnostic test is negative, the possibility of a false negative result should be considered in the context of a patient's recent exposures and the presence of clinical signs and symptoms consistent with COVID-19. A result of Detected indicates that RNA from SARS-CoV-2 was detected and the patient is infected. As required or requested by public health authorities, positive specimens may be sent for additional testing. Positive and negative predictive values for this test are highly dependent on disease prevalence. A result of Invalid indicates that neither the viral RNA targets nor the internal control target was detected. An invalid result suggests the presence of inhibitors. Recollection and re-testing is recommended in the case of an invalid result. CDC COVID-19 criteria for testing on human specimens and clinical management guidance information are available at the CDC Coronavirus Disease 2019 (COVID-19) webpage under Information for Healthcare Professionals (https://www.cdc.gov/coronavirus/2019-ncov/hcp/index.html) Additional information about this and other EUA tests can be found in provider and patient fact sheets at the following FDA website: https://www.fda.gov/medical-devices/ffysnkaibrw-aahrtya-1806-rxmea-41-hainozcdq- kmn-nmwralupwyolsr-yzyabym-devices/fzxhv-nwoyxxnmrdd-cktz SARS-Cov-2 RNA Source ULTRASOUND SPEC Swab COVID-19 PCR [[id number]] Collected: 10/15/212032 Lab Status: Final result Specimen: Nasopharyngeal Swab Updated: 10/16/21 0004 SARS-CoV-2 RNA PCR Not Detected Comment: This result should be interpreted in combination with the clinical observations, patient history and epidemiological information. For testing of asymptomatic individuals, assay performance characteristics and clinical utility have not been evaluated. Testing for SARS-CoV-2 (Severe acute respiratory syndrome coronavirus 2, formerly known as 2019 novel coronavirus or 2019-nCoV) to aid in the diagnosis of COVID-19 is performed using the [employer] COVID-19 Direct Assay by [employer] as authorized by the FDA issued Emergency Use Authorization (EUA). This assay is intended for In-vitro Diagnostic (IVD) use with nasopharyngeal swabs collected from individuals meeting the CDC criteria for testing. The assay is performed based on the instructions for use and additional guidance provided by the FDA. Testing is performed in the Microbiology Laboratory within the Department of Pathology and Laboratory Medicine at [facility], certified under the Clinical Laboratory Improvement Amendments of 1988 (CLIA), 42 U.S.C. section 263a, to perform high complexity tests. Assay performance has been verified according to clinical laboratory regulatory requirements. Test results are provided above. A result of Not Detected indicates that the viral RNA target is not present but does not preclude SARS-CoV-2 infection. False negative results may occur if a specimen is improperly collected, transported or handled; if amplification inhibitors are present; or if inadequate numbers of viral particles are present in the specimen. A result of Detected suggests a current or recent infection and the patient is presumed to be infected. Positive and negative predictive values for this test are highly dependent on disease prevalence. A result of Invalid indicates the inability to conclusively determine the presence or absence of SARS-CoV-2 RNA in the sample which can be due to a variety of factors. Recollection is recommended in the case of an invalid result. CDC COVID-19 criteria for testing on human specimens and clinical management guidance information are available at the CDC Coronavirus Disease 2019 (COVID-19) webpage under Information for Healthcare Professionals (https://www.cdc.gov/coronavirus/2019-ncov/hcp/index.html). Additional information about this and other EUA tests can be found in provider and patient fact sheets at the following FDA website: https://www.fda.gov/medical-devices/izswsocyrvx-wtoljsi-5661-pmryi-23-xfaavrvsx- hea-qgsxuhopxvhfmb-jogtrtv-devices/dbdva-waujnsjxxda-eeia SARS-CoV-2 Source ULTRASOUND SPEC Swab Pertinent radiology/diagnostic studies: ASSESSMENT/PLAN: Luis Manuel Mobley JrNabil is a 61 y.o. 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 now day + 10 (day 0 is 10/22) for MUD HSCT. Patient has been afebrile for the last week. Infectious workup remains negative. Tolerated stem cellinfusion well on 10/22, had some rigors and nausea post- infusion that resolved with medications. Counts still low today. Continue cefepime due to high risk of infection given HSCT status. Patient's high ostomy output (2-3L per day) improved with scheduled imodium. STACIE improving with mIVF. CTM. For mucositis, on bmx, viscous lidocaine, morphine prn (dilaudid causes nausea). Started TPN on 10/31. For his bilateral feet neuropathy, will continue gabapentin to 200mg TID. Summary Plan: - increase morphine prn (2mg IV mild, 4mg IV moderate, 6mg IV severe) for mucositis - stop IVF - continue IV tac 0.7mg bid - monitor ostomy output - continue zarxio from day +7 to when ANC > 1500 - continue cefepime until ANC >500 - monitor I/O and daily weights - tacrolimus level Thursday and ?? Plan: #STACIE, pre-renal, improving - pre-renal, noted on 10/27 - s/p 1L Bolus on 10/27 and 10/28, encourage imodium to thicken ostomy output - mIVF (10/29 -> 11/01) - continue to monitor #AML #MUD HSCT Day (-7): Fludarabine: Day (-6): Fludarabine, Busulfan, Rabbit ATG: Day (-5): Fludarabine, Busulfan, Rabbit ATG: Day (-4): Fludarabine, Busulfan, Rabbit ATG: Day (-3): Fludarabine, Busulfan: Day (0): Stem Cell Infusion: Day (+1): metHOTREXate: Day (+3): metHOTREXate: Day (+6): metHOTREXate: Day (+11): metHOTREXate: General - q4h vitals - strict Is/Os 2x daily - weigh patient 2x daily, notify provider if weight increases by 1kg or more in 12 hour period ?- lasix 20mg IV prn weight gain >1 kg above admission baseline ?- lasix 20mg IV for weight gain 1 kg over 12 hours or input exceeding output by greater than 1,000 ml/12h - neutropenic precautions - incentive spirometry q2h while awake - activity as tolerated - electrolyte replacement Chemotherapy/Support - Busulfan 204mg??day (-6) to day (-3) -??Fludarabine??61??mg 102ml infusion once over 30 minutes day -7 Then every 24 hours at 0900 for 4 doses day (-6) to day (-3) - Rabbit ATG??124.8mg over 10 hours day (-6), 166.4mg on day (-5) 208??on day (-4).?? - Day 0 stem cell infusion. Premedicate with acetaminophen 650mg, diphenhydramine 50mg) - Methotrexate??10mg??day (+1), day (+3), day (+6), day (+11). Hold for serum creatinine >2, bilirubin >5, fluid accumulation (large effusion or ascites), severe mucositis if potential need for intubation. - filgrastim??600mcg qd starting day (+7) until ANC >1500 ?? Laboratory Monitoring - weekly CMV PCR starting day +10, then weekly thereafter - IgG every 2 weeks starting day +1 to day +100 - U/A s/ reflex culture on admission, then daily on days -2, -1, 0? Transfusion parameters - Hgb <??6.5 - PLT <10, or if febrile??or bleeding??<20 - keep active T&S once hgb <8 ?? Prophylaxis Seizure ppx ?-phenytoin 300 day (-6) through (-1) - GI ppx ?- pantoprazole 40mg qd - mucositis ppx ?- supersaturated calcium phosphate oral solution 30ml 4x daily starting on admission until resolution of mucositis and ANC ?>500 - infection ppx ?- fluconazole 400mg qd starting day (0) ?- levofloxacin 750mg qd starting day (0) until ANC >500, changed tocefepime due to fever on 10/19 ?- acyclovir 800mg bid starting day (-7) ?- bactrim DS 1 tablet daily from day (-7) through day (-2) ?- bactrim DS 1 tablet MWF starting day (+30) - GVHD ppx?-??Tacrolimus??0.7mg IV bid?? - Started day (-2),?target 5-10 trough - VOD ppx ?- lovenox 40mg qd day (-7) through (+30) per Dr. Modi's note, he should continue lovenox 100mg qd until plt apx <40 then switch to VOD ppx dose. ?- ursodiol 300mg qAM??&??qPM day (-7) through day (+30) Hydration - NaCl 0.9% continuous??150ml/hr x??day (-6) ??Through (-3) ?? Pain/Nausea/Appetite - avoid acetaminophen through??day??(-3) - avoid steroid antiemetics - palonosetron 0.25mg day (-6) - aprepitant 130mg day (-6) prior to??busulfan - lorazepam 0.5mg IV q4h prn nausea, anxiety - ondansetron??8mg q8h prn nausea, vomiting beginning day (-3) - prochlorperazine 10mg IV q6h prn nausea, vomiting - use ondansetron >??prochlorperazine or promethazine >??lorazepam >??metoclopramide - olanzapine 5mg qhs starting day (-3) for 5 doses?? - dilaudid prn (10/31 - p) ?? #Fever, resolved - 102.9 10/19 - C. Diff negative - UA unremarkable - BCx 10/20 negative - starting cefepime 10/19 - p - start vanc 10/20 - 10/22 #Paroxysmal Afib - Continue home metoprolol (convert to tartrate), flecainide ?? #Hx of provoked PE in Apr 2021 - On lovenox 100mg qd (held prior to central line placement) - Continue until plt reach approximately 40 followed by switch to prophylactic dosing. ?? #Hx of C diff colitis - Continue home PO vancomycin - Ostomy care #Bilateral Feet tingling - pt reports having baseline bilateral feet tingling that was noted to be worsened on on 10/21 (2 daysafter completing 5 days of fludarabine), strength intact, no loss of sensation - start gabapentin 100mg TID (10/21 - 10/23), 200mg TID (10/23 - p) #GERD - takes protonix at home - current regimen: protonix bid, carafate, tums, famotidine #Pancytopenia 2/2 to chemo and disease - continue to monitor, transfuse as needed for support #Routine DVT PPx: VOD ppx lovenox 40mg b/c platelet < 40 (holding home dose 100mg) Diet: Neutropenic (BMT) diet Dispo: 1-[place] CODE STATUS: Attempt Cardiopulmonary Resuscitation - Inpatient Stacy Marin MD PGY1 Internal Medicine 11/01/2021 Heme/Onc/BMT Team A Pager #[phone] Associated attestation - Urban Dos Santos MD - 11/01/2021 8:33 PM EDT BMT/Hematology Inpatient Staff Shared Addendum I have reviewed the above housestaff note and have participated in the direct care of this patient. I have discussed the case in detail with the team, reviewed all data and was directly involved in formulation of the patients clinical plan. Luis Manuel Mobley Jr. is a 61 y.o.male with high-risk (FLT3+) AML adm???d on 10/15 for OJO-Yfhv-GLA via Flu/Bu/ATG regimen. Pretransplant course marked by dev't of C difficile colitis with toxic megacolon requiring uhl-estgk-byjfcvjwu, with ostomy, then dev't of 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 Patient Vitals for the past 168 hrs: Weight 11/01/21 1705 102.9 kg (226 lb 13.7 oz) 11/01/21 0430 102.4 kg (225 lb 12 oz) 10/31/21 1647 102.3 kg (225 lb 8.5 oz) 10/31/21 0529 102 kg (224 lb 13.9 oz) 10/30/21 0420 101.2 kg (223 lb 1.7 oz) 10/29/21 1522 101.3 kg (223 lb 5.2 oz) 10/29/21 0338 100.4 kg (221 lb 5.5 oz) 10/28/21 1727 101.3 kg (223 lb 5.2 oz) 10/28/21 0558 100.1 kg (220 lb 10.9 oz) 10/27/21 1538 101.7 kg (224 lb 3.3 oz) 10/27/21 0524 100.4 kg (221 lb 5.5 oz) 10/26/21 1659 101.2 kg (223 lb 1.7 oz) 10/26/21 0339 101.5 kg (223 lb 12.3 oz) Continue hydration support with continuous IV. --> Will hold if his still output is confirmed reduced. Day +10 today Heme Zarxio started Mucositis- Tums, Maalox. Camphor, famotidine, pantoprazole. Will try magic mouthwash and viscous lidocaine. Continues to be an issue. Most meds switched to IV. ID Acyclovir and fluconazole ppx Cefepime for previous neutropenic fever. Fever was during his induction regimen. On oral Vanc ppx GVHD Tac level 10/31 - 7.7 Tacrolimus now 2mg BID -> now IV 0.7 BID Started on Day -2 GI Course complicated by diarrhea from ostomy Output stable at this point. Imodium BID. Hydration PRN now. C diff negative--> started imodium Stool output under control. Wound care used silver nitrate on a small bleeder yesterday. VOD ppx Ursodiol and lovenox Lines: Minimal tenderness. DVT/PE: Hold lovenox for platelets <10. Will consider holding lovenox tomorrow if worsening mucositis. D/w Dr Modi. Overall doing ok. On PPN/TPN. Urban Dos Santos MD Staff Physician [facility] Brenda Crow, RN - 11/01/2021 6:36 AM EDT Illness Severity [x] Stable [] Watcher [] Unstable Patient Summary Reason for admission: Day +10 (11/01) of 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 Significant 24 hour events: 10/31 AM: VSS on RA. C/o heartburn/esophagitis pain. One time 0.4mg IV dilaudid given x1 with improvement, but some nausea/wretching. PRN IV dilaudid scale ordered; 0.2mg IV dilaudid given x1, pt wretching again/nauseated. MD keith, changed to PRN IV morphine. Given x1 and premedicated with PRN IV zofran x1. Refused BMX rinses later, refused carafate, Maalox, and tums, saying those aren't helping. FNS consulted, started on PPN tonight continuous. LR IVF decreased per MD order per OCT. Refused to walk today, feeling tired and run down. Post platelet 19. Tac trough drawn today. Ostomy output brown, dark. Imodium ordered BID. Resting between care. 10/31 PM A & O and VSS this shift. Ostomy output liquid stool, connected to overnight bag. LR continues at 75cc/hr as well as PPN continuous Not able to swallow pills. Needed to break capsules open and crush pills and put over 1 spoonful of apple sauce. This was very difficult for him to swallow. Got MD to change metoprolol PO to once daily dosing. Pt with much increased pain r/t esophagitis. Morphine 1mg IV x 1 extra dose as prn not due yet. Given prn 2mg IV morphine dose prn. Able to tolerate diluted in 10cc NS and pushed slowly with no n/v. Did not premedicate with an antiemetic. Pt is miserable, feeling the worst he's ever felt. Broached the idea of a SWATCHER to MD. He will pass on the day team. Hem 6.0 and platelets 7. Notified MD for transfusion orders. 1 Unit blood hung per tranfusion policy. Will continue to monitor. Notify MD of changes. Chemo plan & supportive medication: Fludarabine/ Busulfan/ATG/MTX Baseline Weight: 107.1 kg AM weight: 102.4 kg PM weight: kg Action List MTX Day +11 Ostomy care, monitor output - imodium BID TPN PRN IV morphine- pain control Needs blood and platelets Kelsy Mujica RN - 10/31/2021 6:52 PM EDT Illness Severity [x] Stable [] Watcher [] Unstable Patient Summary Reason for admission: Day +9 (10/31) of MUD allo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 Significant 24 hour events: 10/31 AM: VSS on RA. C/o heartburn/esophagitis pain. One time 0.4mg IV dilaudid given x1 with improvement, but some nausea/wretching. PRN IV dilaudid scale ordered; 0.2mg IV dilaudid given x1, pt wretching again/nauseated. MD paged, changed to PRN IV morphine. Given x1 and premedicated with PRN IV zofran x1. Refused BMX rinses later, refused carafate, Maalox, and tums, saying those aren't helping. FNS consulted, started on PPN tonight continuous. LR IVF decreased per MD order per OCT. Refused to walk today, feeling tired and run down. Post platelet 19. Tac trough drawn today. Ostomy output brown, dark. Imodium ordered BID. Resting between care. 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 Luis Manuel house, stating I feel more relaxed. [facility] Team will continue to try and see 2-3x/week. Claudia Claros RD - 10/31/2021 12:30 PM EDT Nutrition Consult Note Luis Manuel Mobley Jr. is a 61 y.o. 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 Reason for intervention: TPN Comments: D/t issue with TPN communications analyst, will order base TPN for today, at 63ml/hr, will provide 1.5L. Daily BMP with mag and phos please. Weekly LFTs and TG while on TPN. Monitor wt daily I was able to discuss plan with provider Ian Diaz MD Hem/Onc pager #[phone]. Nutrition Support: TPN Medication Recent History (Show up to 3 orders; newest on the left.) None Lab Results Component Value Date NA 140 10/31/2021 K 4.8 10/31/2021 CL 117 (H) 10/31/2021 CO2 14 (L) 10/31/2021 BUN 47 (H) 10/31/2021 CREATININE 1.49 10/31/2021 ESTGFR 50 (L) 10/31/2021 MAGNESIUM 0.77 10/31/2021 CALCIUM 9.0 10/31/2021 PHOS 3.3 10/31/2021 AST 18 10/31/2021 ALT 42 10/31/2021 ALKPHOS 118 10/31/2021 BILITOT 0.3 10/31/2021 BILIDIR 0.1 10/31/2021 TRIG 171 07/13/2021 HA1C 4.8 07/13/2021 [id number] 1,799 (H) 08/01/2021 SFOLATE 5.6 08/01/2021 IRON [...] right: No Injury Device Sites: O2 sat monitor Other Sites: ostomy Relevant medications: BMX, imodium, methotrexate, protonix, caphosol, prograf, LR at 75ml/hr, liquidtylenol prn Last Bowel Movement: 10/30/21 Intake/Output Summary (Last 24 hours) at 10/31/2021 1230 Last data filed at 10/31/2021 0908 Gross per 24 hour Intake 3439 ml Output 2250 ml Net 1189 ml Admit Weight: 107.1 kg Estimated body mass index is 32.56 kg/m?? as calculated from the following: Height as of this encounter: 177 cm (5' 9.69). Weight as of this encounter: 102 kg (224 lb 13.9 oz). Anton Body Weight: 74.6 kg Usual Body Weight: 235 lbs per pt Wt Readings from Last 10 Encounters: 10/31/21 102 kg (224 lb 13.9 oz) 10/15/21 107.8 kg (237 lb 9.6 oz) 10/04/21 107.2 kg (236 lb 6.4 oz) 09/27/21 109 kg (240 lb 6.4 oz) 09/16/21 105.9 kg (233 lb 6.4 oz) 09/12/21 106.6 kg (235 lb) 09/09/21 102.8 kg (226 lb 9.6 oz) 09/05/21 106.8 kg (235 lb 6.4 oz) 08/26/21 102.8 kg (226 lb 9.6 oz) 08/19/21 100.2 kg (221 lb) Assessment: Estimated needs: Calories: 1865 (25 kcal/kg IBW) Protein: 89-112 grams (1.2-1.5 g/kg IBW) Nutrition Focused Physical Exam (NFPE): Performed on 10/28/21. Subcutaneous fat loss at Orbital region: None present Upper arm region (triceps/biceps): None present Thoracic and lumbar region (ribs, lower back and maxillary line): Not assessed Lean muscle loss to Orthodoxy region (temporalis muscle): None present Clavicle bone region (pectoralis major): None present Dorsal hand (interosseous muscle): None present Shoulder (deltoid): None present Scapular bone region (latissimus dorsi, trapezius muscles): Not assessed Thigh region (quadriceps muscle): None present Posterior calf region (gastrocnemius muscle): None present Fluid accumulation: Not assessed Nutrition intake and intake history/Interview: Please see note from Caridad Patricia for full nutrition assessment. Protein-calorie Malnutrition: Not enough data to assess (White et al, JPEN J Parenteral Enteral Nutr. 2012 December; 36(3): 273-83) Nutrition to continue to follow up while inpatient. Thank you, Claudia Claros RD Pager #:[phone] Caridad Patricia - 10/31/2021 11:27 AM EDT Nutrition Progress Note Luis Manuel Mobley Jr. is a 61 y.o. 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 Reason for intervention: Follow up Nutrition Recommendations: Minimal po intake for 4 days BMT diet Encourage good po intake Monitor ileostomy output - encourage foods to decrease output Monitor wt - trend Monitor lytes - replete as indicated Active Orders Diet Neutropenic (BMT) diet Frequency: Effective Now Number of Occurrences: Until Specified Order Comments: No grapefruit products Lab Results Component Value Date NA 140 10/31/2021 K 4.8 10/31/2021 CL 117 (H) 10/31/2021 CO2 14 (L) 10/31/2021 BUN 47 (H) 10/31/2021 CREATININE 1.49 10/31/2021 ESTGFR 50 (L) 10/31/2021 MAGNESIUM 0.77 10/31/2021 CALCIUM 9.0 10/31/2021 PHOS 3.3 10/31/2021 AST 18 10/31/2021 ALT 42 10/31/2021 ALKPHOS 118 10/31/2021 BILITOT 0.3 10/31/2021 BILIDIR 0.1 10/31/2021 TRIG 171 07/13/2021 HA1C 4.8 07/13/2021 [id number] 1,799 (H) 08/01/2021 SFOLATE 5.6 08/01/2021 IRON [...] right: No Injury Device Sites: O2 sat monitor Other Sites: ostomy Relevant medications: acyclovir, methotrexate, protonix, bactrim, caphosol, prograf, BMX, imoduim, LR @ 75 mL/hr, dilaudid prn Last Bowel Movement: 10/30/21 Admit Weight: 107.1 kg Estimated body mass index is 32.56 kg/m?? as calculated from the following: Height as of this encounter: 177 cm (5' 9.69). Weight as of this encounter: 102 kg (224 lb 13.9 oz). Anton Body Weight: 74.6 kg Usual Body Weight: 235 lbs per pt Weight loss, 6.4% loss since admission, clinically significant Wt Readings from Last 10 Encounters: 10/31/21 102 kg (224 lb 13.9 oz) 10/15/21 107.8 kg (237 lb 9.6 oz) 10/04/21 107.2 kg (236 lb 6.4 oz) 09/27/21 109 kg (240 lb 6.4 oz) 09/16/21 105.9 kg (233 lb 6.4 oz) 09/12/21 106.6 kg (235 lb) 09/09/21 102.8 kg (226 lb 9.6 oz) 09/05/21 106.8 kg (235 lb 6.4 oz) 08/26/21 102.8 kg (226 lb 9.6 oz) 08/19/21 100.2 kg (221 lb) Patient Vitals for the past 168 hrs: Weight 10/31/21 0529 102 kg (224 lb 13.9 oz) 10/30/21 0420 101.2 kg (223 lb 1.7 oz) 10/29/21 1522 101.3 kg (223 lb 5.2 oz) 10/29/21 0338 100.4 kg (221 lb 5.5 oz) 10/28/21 1727 101.3 kg (223 lb 5.2 oz) 10/28/21 0558 100.1 kg (220 lb 10.9 oz) 10/27/21 1538 101.7 kg (224 lb 3.3 oz) 10/27/21 0524 100.4 kg (221 lb 5.5 oz) 10/26/21 1659 101.2 kg (223 lb 1.7 oz) 10/26/21 0339 101.5 kg (223 lb 12.3 oz) 10/25/21 1829 102.3 kg (225 lb 8.5 oz) 10/25/21 0240 102.9 kg (226 lb 13.7 oz) 10/24/21 1532 103.5 kg (228 lb 2.8 oz) Assessment: Estimated needs: Calories: 1865 (25 kcal/kg IBW) Protein: 89-112 grams (1.2-1.5 g/kg IBW) Nutrition Focused Physical Exam (NFPE): Performed on 10/28/21. Subcutaneous fat loss at Orbital region: None present Upper arm region (triceps/biceps): None present Thoracic and lumbar region (ribs, lower back and maxillary line): Not assessed Lean muscle loss to Orthodoxy region (temporalis muscle): None present Clavicle bone region (pectoralis major): None present Dorsal hand (interosseous muscle): None present Shoulder (deltoid): None present Scapular bone region (latissimus dorsi, trapezius muscles): Not assessed Thigh region (quadriceps muscle): None present Posterior calf region (gastrocnemius muscle): None present Fluid accumulation: Not assessed Nutrition intake and intake history/Interview: Luis Manuel reports his po intake has been low recently due to an increase in mouth and throat pain associated with eating. He received Dilaudid for his mouth pain but stated he experienced nausea and dry heaving as a result. For breakfast yesterday, he reportedhaving 1 bagel and V8 juice, no lunch, a banana as a snack, 1/3 of a vanilla shake, and chicken and rice soup for dinner (610 calories, 19.1 g protein - 32% of calorie needs, 21% of protein needs). This morning he consumed 1/2 of his oatmeal for breakfast (100 calories, 2.5 g protein). He has been sipping on iced tea and has pretzels bedside that he attempts to snack on but they are giving him a lot of pain. He declined additional snacks and Ensure/CIB. When asked how he felt about the potential of TPN, he stated he didn't mind the idea as he knows he needs to get nutrition in somehow. 10/28: Visited Luis Manuel at bedside today. He reports his appetite remains poor due to experiencing acid reflux during and after eating. He states he's making an effort to eat, had an egg, bagel and milk forbreakfast. He requested his snacks be changed to once a day in the afternoon since his appetite has been poor, he feels like the food is going to waste. He does consume the banana provided as a snack to decrease ileostomy output. Will be receiving Protonix 2x/day moving forward, in the morning and afternoon which will hopefully settle symptoms and improve po intake. Wt still trending down, will continue to monitor. 10/24: Luis Manuel reported a decrease in his appetite since infusion. He is not experiencing nausea, abdominal pain, or mouth soreness. Encouraged patient to try a little of each meal to improve po intake. Patient agreeable to adding fruit and blueberry spanish yogurt as snacks 2/day to meal plan. Wt is continuing to trend down, will continue to monitor. 10/21: Luis Manuel reported an improved appetite today, he reported over the weekend he felt fatigued and hada minimal appetite. He reported no po intake on Thursday and only ate mashed potatoes yesterday for dinner. Today, he ate 100% of breakfast (eggs, yogurt, and a v8) and almost 100% of lunch (soup and awrap). Pt w/snacks at bedside from visitors, declined additional snacks at this time. Encouraged good po intake. Wt trending down, below reported UBW, continue to monitor. 10/17: Luis Manuel reported a good appetite today and captain room service, remote mortgage underwriter ordered breakfast for pt. He normally eats 3 meals/day or has small, frequent meals. Reported no recent wt loss, had lost wt on previous admits and has been able to regain some wt. Declined snacks at this time. He doesn't consistently track ileostomy output at home but is familiar with foods to thicken output and his familiar w/diet. Pt reported he has Food Safety for People with Cancer booklet, reviewed higher/lower risk foods with pt, no questions at this time. Protein-calorie Malnutrition: Not identified (RAFA Barnes J Parenteral Enteral Nutr. 2011;36(3): 273-83) Nutrition to continue to follow up while inpatient Thank you, Caridad Janelle Belem Stacy Marin MD - 10/31/2021 7:43 AM EDT Images from the original note were not included. Inpatient Hematology/Oncology/SCT Progress Note Patient info: Name: Luis Manuel Mobley Jr. : 1960 PCP: LEISA Munguia PCP phone number: [phone] Date of Admission: 10/15/2021 ( Hospital Day 16 days ) Service: Hem/Onc Team A pg 2350 (09/03) Responsible Attending:Urban Dos Santos MD ID: Luis Manuel Mobley Jr. is a 61 y.o. 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 Baseline weight: 107.1kg Donor: MUD ABO: Donor OO negative, recipient O positive HLA: 05/26 ID status: Donor and recipient both CMV negative Conditioning regimen: fludarabine, busulfan GVHD regimen: Rabbit ATG, methotrexate, tacrolimus 24 Hour Events: - yesterday, added BMX and viscous lidocaine - overnight, liquid tylenol gilmore with swallowing, getting 100cc/hr mIVF, got a dose of 0.4mg IV dilaudid with improvement of esophagitis pain, - This AM, getting platelet, order another dose of dilaudid - Weight 101.2kg -> 102kg - In/Out: Net +742 (stool 800, po 500) - Cr downtrending 1.69 -> 1.49 Vitals: Last value Range last 24 hrs Temperature Temp: 36.7 ??C (98.1 ??F) Temp: [36.5 ??C (97.7 ??F)-36.9 ??C (98.4 ??F)] Heart Rate Heart Rate: 63 Heart Rate: [63-90] Blood Pressure BP: 129/79 BP: (113-152)/(64-90) Respiratory Rate Resp: 18 Resp: [16-18] SpO2 SpO2: 100 % SpO2: [99 %-100 %] Intake/Output Summary (Last 24 hours) at 10/31/2021 0744 Last data filed at 10/31/2021 0500 Gross per 24 hour Intake 3267 ml Output 2525 ml Net 742 ml Patient Vitals for the past 168 hrs: Weight 10/31/21 0529 102 kg (224 lb 13.9 oz) 10/30/21 0420 101.2 kg (223 lb 1.7 oz) 10/29/21 1522 101.3 kg (223 lb 5.2 oz) 10/29/21 0338 100.4 kg (221 lb 5.5 oz) 10/28/21 1727 101.3 kg (223 lb 5.2 oz) 10/28/21 0558 100.1 kg (220 lb 10.9 oz) 10/27/21 1538 101.7 kg (224 lb 3.3 oz) 10/27/21 0524 100.4 kg (221 lb 5.5 oz) 10/26/21 1659 101.2 kg (223 lb 1.7 oz) 10/26/21 0339 101.5 kg (223 lb 12.3 oz) 10/25/21 1829 102.3 kg (225 lb 8.5 oz) 10/25/21 0240 102.9 kg (226 lb 13.7 oz) 10/24/21 1532 103.5 kg (228 lb 2.8 oz) Exam: GENERAL:?appeared in no acute distress, sleeping MOUTH: lesion noted inside right cheek, blood noted at posterior oropharynx CARDIOVASCULAR:??rrr no mrg PULMONARY:??CTAB on RA, no increased wob GASTROINTESTINAL:??Abdomen soft nontender to palpation w +BS. Colostomy with brown watery stool in place. SKIN:??No rashes, bruises or petechiae. ?? EXT: no Edema at ankles NEUROLOGICAL:??Alert and oriented to person, place and time. No focal deficits Medications: Scheduled Meds: ??? HYDROmorphone 0.4 mg Intravenous Once ??? ceFEPime 2 g Intravenous Q12H ??? loperamide 2 mg Oral Daily ? ? rvkzxgvfo-xdxzwfjez-ma-mag-sim 5 mL Oral 4 Times Daily AC & HS ??? famotidine 20 mg Oral Daily ??? tacrolimus 2 mg Oral BID ??? pantoprazole EC 40 mg Oral BID ??? enoxaparin 40 mg Subcutaneous Daily ??? gabapentin 200 mg Oral TID ??? sodium chloride 0.9 % (flush) 5 mL Intravenous BID ??? metoprolol tartrate 12.5 mg Oral Q6H PIERCE ??? vancomycin 125 mg Oral BID ??? flecainide 50 mg Oral BID ??? supersaturated calcium phosphate 30 mL Oral 4 Times Daily ??? fluconazole 400 mg Oral Daily ??? acyclovir 800 mg Oral BID ??? [START ON 11/21/2021] sulfamethoxazole-trimethoprim DS 1 tablet Oral Daily ??? ursodioL 300 mg Oral Daily with breakfast ??? ursodioL 600 mg Oral Daily with dinner ??? [START ON 11/02/2021] metHOTREXate (PF) 5 mg/m2/dose (Treatment Plan Adjusted) Intravenous Once ??? filgrastim-sndz 600 mcg Subcutaneous Daily Continuous Infusions: ??? lactated Ringers 100 mL/hr (10/31/21 0200) PRN Meds:.acetaminophen, camphor-menthoL, lidocaine, loperamide, alum-mag hydroxide-simeth, calcium carbonate, sucralfate, furosemide, furosemide, sodium chloride 0.9 % (flush), lidocaine, LORazepam, ondansetron, prochlorperazine, potassium chloride ER, potassium chloride ER, potassium chloride, magnesium sulfate, magnesium sulfate, potassium phosphate, potassium phosphate, heparin, porcine, sodium chloride 0.9 % (flush) Labs: Recent Labs 10/31/21 0415 10/30/21 0915 10/30/21 0345 10/29/21 0343 10/27/21 1250 10/27/21 0530 10/26/21 0325 10/25/21 0254 WBC 0.0* -- 0.0* 0.0* < > 0.4* 0.6* 1.0* HGB 6.9* -- 6.6* 7.4* < > 8.6* 8.1* 7.4* HCT 19.6* -- 18.9* 21.4* < > 25.0* 22.9* 21.0* PLATELET 7* 23* 9* 18* < > 10* 16* 21* NEUTROABS -- -- -- -- -- 0.39* 0.53* 0.95* < > = values in this interval not displayed. ANC 0 Recent Labs 10/31/21 0415 10/30/215 10/29/21 034 NA 140 139 139 K 4.8 5.1* 5.1* CL 117* 117* 115* CO2 14* 12* 13* BUN 47* 57* 58* CREATININE 1.49 1.69* 1.65* Recent Labs 10/31/215 10/30/215 10/29/21 034 CALCIUM 9.0 9.1 9.4 MAGNESIUM 0.77 0.62* 0.71 PHOS 3.3 3.8 4.4 Recent Labs 10/31/215 10/28/21 0445 10/25/21 0254 AST 18 26 19 ALT 42 65* 28 ALKPHOS 118 104 68 BILITOT 0.3 0.3 0.3 BILIDIR 0.1 0.1 0.1 No results for input(s): INR, PT, PTT in the last 72 hours. Microbiology: BCx 10/20: NGTD UA 10/20: does not look infectious Microbiology Results (Last 30 days) Procedure Component Value Units Date/Time C. Difficile Screen [[id number]] Collected: 10/28/21 1207 Lab Status: Final result Specimen: Stool Updated: 10/28/21 1334 C Diff Screen Negative Comment: Ag/Tox Neg C. diff?? Negative Clostridium difficile is not present in the specimen. If patient is having diarrhea suspected to be from an infectious cause, then Soap & Water Contact Precautions are still required. Blood culture [[id number]] Collected: 10/20/21 1732 Lab Status: Final result Specimen: Blood Updated: 10/25/21 2301 Blood Culture No growth at 5 days. Blood culture [[id number]] Collected: 10/20/21 1732 Lab Status: Final result Specimen: Blood Updated: 10/25/21 2301 Blood Culture No growth at 5 days. Blood culture [[id number]] Collected: 10/19/21 1139 Lab Status: Final result Specimen: Blood from Antecubital, Left Updated: 10/24/21 1501 Blood Culture No growth at 5 days. Blood culture [[id number]] (Abnormal) Collected: 10/19/21 1133 Lab Status: Final result Specimen: Blood from Hand, Right Updated: 10/25/21 0910 Blood Culture -- Coagulase negative Staphylococcus species detected by PCR Interpretation of the importance of skin mityz such as Coagulase Negative Staph, Viridans Strep, Corynebacteria and other Gram Positive organisms from a single Blood Culture set requires clinical correlation. Gram Stain Aerobic -- Growth detected in aerobic bottle. Gram Positive Cocci in clusters seen C. Difficile Screen [[id number]] Collected: 10/19/21 1020 Lab Status: Final result Specimen: Stool Updated: 10/19/21 1607 C Diff Screen Negative Comment: Ag/Tox Neg C. diff?? Negative Clostridium difficile is not present in the specimen. If patient is having diarrhea suspected to be from an infectious cause, then Soap & Water Contact Precautions are still required. COVID-19 PCR [[id number]] Collected: 10/19/21 0405 Lab Status: Final result Specimen: Nasopharyngeal Swab Updated: 10/19/21 1834 SARS-CoV-2 RNA Not Detected Comment: This result should be interpreted in combination with the clinical observations, patient history and epidemiological information in making a final diagnosis. For testing of asymptomatic individuals, assay performance characteristics and clinical utility have not been evaluated. Testing for SARS-CoV-2 (Severe acute respiratory syndrome coronavirus 2, formerly known as 2019 novel coronavirus or 2019-nCoV) to aid in the diagnosis of COVID-19 is performed using the [employer] m SARS-CoV-2 Assay as authorized by the FDA Emergency Use Authorization (EUA). This EUA assay is intended for In-vitro Diagnostic (IVD) use with respiratory specimens such as nasopharyngeal swabs collected from individuals during the acute phase of infection. This assay is performed based on the instructions for use provided by [employer] and additional guidance provided by CDC and FDA. Testing is performed in the [facility] within the Department of Pathology and Laboratory Medicine at [facility], certified under the Clinical Laboratory Improvement Amendments of 1988 (CLIA), 42 U.S.C. 263a, to perform high complexity tests. Assay performance has been verified according to clinical laboratory regulatory requirements for use with specimens collected from individuals suspected of COVID-19. Test results are provided above. A result of Not Detected indicates that the viral RNA target is not present above the limit of detection, but does not preclude SARS-CoV-2 infection. False negative results may occur if a specimen is improperly collected, transported or handled; if amplification inhibitors are present; or if inadequate numbers of viral particles are present in the specimen. When a diagnostic test is negative, the possibility of a false negative result should be considered in the context of a patient's recent exposures and the presence of clinical signs and symptoms consistent with COVID-19. A result of Detected indicates that RNA from SARS-CoV-2 was detected and the patient is infected. As required or requested by public health authorities, positive specimens may be sent for additional testing. Positive and negative predictive values for this test are highly dependent on disease prevalence. A result of Invalid indicates that neither the viral RNA targets nor the internal control target was detected. An invalid result suggests the presence of inhibitors. Recollection and re-testing is recommended in the case of an invalid result. CDC COVID-19 criteria for testing on human specimens and clinical management guidance information are available at the CDC Coronavirus Disease 2019 (COVID-19) webpage under Information for Healthcare Professionals (https://www.cdc.gov/coronavirus/2019-ncov/hcp/index.html) Additional information about this and other EUA tests can be found in provider and patient fact sheets at the following FDA website: https://www.fda.gov/medical-devices/uzlbrurqirp-yxirmto-4935-jnmft-41-abkirstxt- xqp-fxjybsjvlbecxb-aslhbcz-devices/rsweu-usywkgfiesv-mjsw SARS-Cov-2 RNA Source ULTRASOUND SPEC Swab COVID-19 PCR [[id number]] Collected: 10/15/212032 Lab Status: Final result Specimen: Nasopharyngeal Swab Updated: 10/16/21 0004 SARS-CoV-2 RNA PCR Not Detected Comment: This result should be interpreted in combination with the clinical observations, patient history and epidemiological information. For testing of asymptomatic individuals, assay performance characteristics and clinical utility have not been evaluated. Testing for SARS-CoV-2 (Severe acute respiratory syndrome coronavirus 2, formerly known as 2019 novel coronavirus or 2019-nCoV) to aid in the diagnosis of COVID-19 is performed using the [employer] COVID-19 Direct Assay by [employer] as authorized by the FDA issued Emergency Use Authorization (EUA). This assay is intended for In-vitro Diagnostic (IVD) use with nasopharyngeal swabs collected from individuals meeting the CDC criteria for testing. The assay is performed based on the instructions for use and additional guidance provided by the FDA. Testing is performed in the Microbiology Laboratory within the Department of Pathology and Laboratory Medicine at [facility], certified under the Clinical Laboratory Improvement Amendments of 1988 (CLIA), 42 U.S.C. section 263a, to perform high complexity tests. Assay performance has been verified according to clinical laboratory regulatory requirements. Test results are provided above. A result of Not Detected indicates that the viral RNA target is not present but does not preclude SARS-CoV-2 infection. False negative results may occur if a specimen is improperly collected, transported or handled; if amplification inhibitors are present; or if inadequate numbers of viral particles are present in the specimen. A result of Detected suggests a current or recent infection and the patient is presumed to be infected. Positive and negative predictive values for this test are highly dependent on disease prevalence. A result of Invalid indicates the inability to conclusively determine the presence or absence of SARS-CoV-2 RNA in the sample which can be due to a variety of factors. Recollection is recommended in the case of an invalid result. CDC COVID-19 criteria for testing on human specimens and clinical management guidance information are available at the CDC Coronavirus Disease 2019 (COVID-19) webpage under Information for Healthcare Professionals (https://www.cdc.gov/coronavirus/2019-ncov/hcp/index.html). Additional information about this and other EUA tests can be found in provider and patient fact sheets at the following FDA website: https://www.fda.gov/medical-devices/bwxlcdszibk-midikif-7915-ypfew-89-esqvotgip- itb-iqdkqwcwzrfdak-wejvaqm-devices/oawio-sntsmcngvrq-wade SARS-CoV-2 Source ULTRASOUND SPEC Swab Pertinent radiology/diagnostic studies: ASSESSMENT/PLAN: Luis Manuel Mobley Jr. is a 61 y.o. 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 now day + 9 (day 0 is 10/22) for MUD HSCT. Patient has been afebrile for the last several days. Infectious workup remains negative. Tolerated stem cell infusion well on 10/22, had some rigors and nausea post-infusion that resolved with medications. Counts dropping as expected. Continue cefepime due to high risk of infection given HSCT status. Patient's high ostomy output (2-3L per day) improved with scheduled imodium. However, Cr (likely pre-renal) seems to plateau today, will continue mIVF. For mucositis, on bmx, viscous lidocaine, dilaudid prn. For his bilateral feet neuropathy, will continue gabapentin to 200mg TID. Summary Plan: - Dilaudiid prn for mucositis pain - decrease mIVF to 75ml/hr - imodium once daily, has prn available - monitor Cr - monitor ostomy output - continue zarxio from day +7 to when ANC > 1500 - continue gabapentin to 200mg TID - continue cefepime until ANC >500 - monitor I/O and daily weights - start BMX and viscous lidocaine - continue tac to 2mg AM and 2mg PM - tacrolimus level Thursday and ?? Plan: #STACIE, pre-renal, improving - pre-renal, noted on 10/27 - s/p 1L Bolus on 10/27 and 10/28, encourage imodium to thicken ostomy output - mIVF (10/29 -> p) - continue to monitor #AML #MUD HSCT Day (-7): Fludarabine: Day (-6): Fludarabine, Busulfan, Rabbit ATG: Day (-5): Fludarabine, Busulfan, Rabbit ATG: Day (-4): Fludarabine, Busulfan, Rabbit ATG: Day (-3): Fludarabine, Busulfan: Day (0): Stem Cell Infusion: Day (+1): metHOTREXate: Day (+3): metHOTREXate: Day (+6): metHOTREXate: Day (+11): metHOTREXate: General - q4h vitals - strict Is/Os 2x daily - weigh patient 2x daily, notify provider if weight increases by 1kg or more in 12 hour period ?- lasix 20mg IV prn weight gain >1 kg above admission baseline ?- lasix 20mg IV for weight gain 1 kg over 12 hours or input exceeding output by greater than 1,000 ml/12h - neutropenic precautions - incentive spirometry q2h while awake - activity as tolerated - electrolyte replacement Chemotherapy/Support - Busulfan 204mg??day (-6) to day (-3) -??Fludarabine??61??mg 102ml infusion once over 30 minutes day -7 Then every 24 hours at 0900 for 4 doses day (-6) to day (-3) - Rabbit ATG??124.8mg over 10 hours day (-6), 166.4mg on day (-5) 208??on day (-4).?? - Day 0 stem cell infusion. Premedicate with acetaminophen 650mg, diphenhydramine 50mg) - Methotrexate??10mg??day (+1), day (+3), day (+6), day (+11). Hold for serum creatinine >2, bilirubin >5, fluid accumulation (large effusion or ascites), severe mucositis if potential need for intubation. - filgrastim??600mcg qd starting day (+7) until ANC >1500 ?? Laboratory Monitoring - weekly CMV PCR starting day +10, then weekly thereafter - IgG every 2 weeks starting day +1 to day +100 - U/A s/ reflex culture on admission, then daily on days -2, -1, 0? Transfusion parameters - Hgb <??6.5 - PLT <10, or if febrile??or bleeding??<20 - keep active T&S once hgb <8 ?? Prophylaxis Seizure ppx ?-phenytoin 300 day (-6) through (-1) - GI ppx ?- pantoprazole 40mg qd - mucositis ppx ?- supersaturated calcium phosphate oral solution 30ml 4x daily starting on admission until resolution of mucositis and ANC ?>500 - infection ppx ?- fluconazole 400mg qd starting day (0) ?- levofloxacin 750mg qd starting day (0) until ANC >500, changed tocefepime due to fever on 10/19 ?- acyclovir 800mg bid starting day (-7) ?- bactrim DS 1 tablet daily from day (-7) through day (-2) ?- bactrim DS 1 tablet MWF starting day (+30) - GVHD ppx?-??Tacrolimus??2.5mg BID??starting day (- 2)?target 5-10 trough - VOD ppx ?- lovenox 40mg qd day (-7) through (+30) per Dr. Modi's note, he should continue lovenox 100mg qd until plt apx <40 then switch to VOD ppx dose. ?- ursodiol 300mg qAM??&??qPM day (-7) through day (+30) Hydration - NaCl 0.9% continuous??150ml/hr x??day (-6) ??Through (-3) ?? Pain/Nausea/Appetite - avoid acetaminophen through??day??(-3) - avoid steroid antiemetics - palonosetron 0.25mg day (-6) - aprepitant 130mg day (-6) prior to??busulfan - lorazepam 0.5mg IV q4h prn nausea, anxiety - ondansetron??8mg q8h prn nausea, vomiting beginning day (-3) - prochlorperazine 10mg IV q6h prn nausea, vomiting - use ondansetron >??prochlorperazine or promethazine >??lorazepam >??metoclopramide - olanzapine 5mg qhs starting day (-3) for 5 doses?? - dilaudid prn (10/31 - p) ?? #Fever, resolved - 102.9 10/19 - C. Diff negative - UA unremarkable - BCx 10/20 negative - starting cefepime 10/19 - p - start vanc 10/20 - 10/22 #Paroxysmal Afib - Continue home metoprolol (convert to tartrate), flecainide ?? #Hx of provoked PE in Apr 2021 - On lovenox 100mg qd (held prior to central line placement) - Continue until plt reach approximately 40 followed by switch to prophylactic dosing. ?? #Hx of C diff colitis - Continue home PO vancomycin - Ostomy care #Bilateral Feet tingling - pt reports having baseline bilateral feet tingling that was noted to be worsened on on 10/21 (2 daysafter completing 5 days of fludarabine), strength intact, no loss of sensation - start gabapentin 100mg TID (10/21 - 10/23), 200mg TID (10/23 - p) #GERD - takes protonix at home - current regimen: protonix bid, carafate, tums, famotidine #Pancytopenia 2/2 to chemo and disease - continue to monitor, transfuse as needed for support #Routine DVT PPx: VOD ppx lovenox 40mg b/c platelet < 40 (holding home dose 100mg) Diet: Neutropenic (BMT) diet Dispo: 1-[place] CODE STATUS: Attempt Cardiopulmonary Resuscitation - Inpatient Stacy Marin MD PGY1 Internal Medicine 10/31/2021 Heme/Onc/BMT Team A Pager #[phone] Associated attestation - Urban Dos Santos MD - 10/31/2021 4:04 PM EDT BMT/Hematology Inpatient Staff Shared Addendum I have reviewed the above housestaff note and have participated in the direct care of this patient. I have discussed the case in detail with the team, reviewed all data and was directly involved in formulation of the patients clinical plan. Luis Manuel Mobely . is a 61 y.o.male with high-risk (FLT3+) AML adm???d on 10/15 for NKX-[id number]-WTB via Flu/Bu/ATG regimen. Pretransplant course marked by dev't of C difficile colitis with toxic megacolon requiring zlf-cgaql-nghdvulcp, with ostomy, then dev't of 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 Patient Vitals for the past 168 hrs: Weight 10/31/21 0529 102 kg (224 lb 13.9 oz) 10/30/21 0420 101.2 kg (223 lb 1.7 oz) 10/29/21 1522 101.3 kg (223 lb 5.2 oz) 10/29/21 0338 100.4 kg (221 lb 5.5 oz) 10/28/21 1727 101.3 kg (223 lb 5.2 oz) 10/28/21 0558 100.1 kg (220 lb 10.9 oz) 10/27/21 1538 101.7 kg (224 lb 3.3 oz) 10/27/21 0524 100.4 kg (221 lb 5.5 oz) 10/26/21 1659 101.2 kg (223 lb 1.7 oz) 10/26/21 0339 101.5 kg (223 lb 12.3 oz) 10/25/21 1829 102.3 kg (225 lb 8.5 oz) 10/25/21 0240 102.9 kg (226 lb 13.7 oz) Continue hydration support with continuous IV. Day +9. D0(10/22) today Heme Danielaxio started Mucositis-active issue inspite of max supportive therapy Continues to be an issue. Nutrition consult for TPN. Tac level 10/31 - 7.7--> switching to IV today. ID Acyclovir and fluconazole ppx Cefepime for previous neutropenic fever. Fever was during his induction regimen. On oral Vanc ppx GVHD 10/28 level 9.4. 10/31 tac level 7.7 Tacrolimus now 2mg BID -->? Switcing to IV now. GI Course complicated by diarrhea from ostomy Output increased over last few days. Continue continuous hydration - 100cc/hr C diff negative--> started imodium - now BID with PRN use allowed. Stool output under control. Wound care used silver nitrate on a small bleeder yesterday. VOD ppx Ursodiol and lovenox Lines: Minimal tenderness. DVT/PE: Hold lovenox for platelets <10. Overall doing ok. Nutrition consult. Urban Dos Santos MD Staff Physician [facility] Brenda Crow RN - 10/31/2021 6:49 AM EDT Illness Severity [x] Stable [] Watcher [] Unstable Patient Summary Reason for admission: Day +9 (10/31) of MUD allo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 Significant 24 hour events: 316 AM: Central line remains slightly reddened and tender to palpation at exit site. MDs aware. Hascontinuous fluids running at 100/hr. Continues to c/o heartburn or sores in esophagus maalox givenx 1 and BMX scheduled. Ate a bagel for breakfast and half of a shake for lunch. Total of 500 mL stool output. Imodium ordered daily. 10/30 PM A & O and VSS this shift. Ostomy output liquid stool, connected to overnight bag. LR continues at 100cc/hr. Only able to take some pudding with pills. Decreased appetite due to heartburn/nausea, throat pain. Pt with much increased pain this AM r/t esophagitis. MD made aware and given liquid tylenol which burned with swallowing. Spoke with MD about IV pain med and possibility of starting TPN. IV dilaudid ordered x 1 0.4mg dose/ given and MD will pass on TPN concern to day team. Reported he had a poor night of sleep. Continues with loose stool. 300cc liquid stool, guaiac +. Urine hem + this AM. Platelets are 7, MD made aware and platelets ordered. Platelets hung at 0645 per transfusion po licy. Pain reassess after IV dilaudid dose brought pain from 7/10 with swallowing to a 2/10. Notified MD to see if a prn IV pain med order can be ordered. Will continue to monitor. Notify MD of changes. Chemo plan & supportive medication: Fludarabine/ Busulfan/ATG/MTX Baseline Weight: 107.1 kg AM weight: 102 kg PM weight: kg Action List Weekly CMV PCR starting day +10 MTX Day +11 Ostomy care, monitor output - imodium daily VOD px: ursodiol and lovenox- maintain plt > 10 Type and screen expires 11/02 at 2359 [place] level today Pain control, IV dilaudid, ? SWATCHER today Monitor nutrition, ? TPN today Lanny Krishnan RN - 10/30/2021 6:26 PM EDT Patient Summary Reason for admission: Day +8 (10/30) of MUD allo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 Significant 24 hour events: 10/30 AM: Central line remains slightly reddened and tender to palpation at exit site. MD aware. Has continuous fluids running at 100/hr. Continues to c/o heartburn or sores in esophagus maalox given x 1 and BMX scheduled. Ate a bagel for breakfast and half of a shake for lunch. Total of 500 mL stooloutput. Imodium ordered daily. Wt still remains below baseline. Ambulated 10 laps around the unit. Will continue to monitor. Action List Weekly CMV PCR starting day +10 MTX Day +11 Ostomy care, monitor output - imodium daily VOD px: ursodiol and lovenox- maintain plt > 10 Type and screen expires 11/02 at 2359 Roderick Jones, PT - 10/30/2021 5:24 PM EDT Physical Therapy Note Checked on pt's status, and pt had just walked 10 loops with staff air tactical officer with walker (he walked 6 loopsand rested in seated and then 4 loops); he reported he wanted to do better than yesterday. Pt educated on pacing and resting as needed. Discussed progression of mobility with staff air tactical officer and mobility techand that PT will follow up as indicated. Roderick Jones, PT Beeper# [phone] Jerica Parekh [facility] - 10/30/2021 8:04 AM EDT Clinical Pharmacist Note - Renal Dose Adjustment for Antimicrobials Luis Manuel Mobley Jr. (A# [id number]) is being treated with the following antimicrobial agent(s) which require dose adjustment based on current renal function: Cefepime 2 grams IV q8h The indication for antimicrobial treatment is: febrile neutropenia Pharmacokinetic information: Height: Ht Readings from Last 1 Encounters: 10/27/21 177 cm (5' 9.69) Weight: Wt Readings from Last 1 Encounters: 10/30/21 101.2 kg (223 lb 1.7 oz) Body mass index is 32.3 kg/m??. Estimated Creatinine Clearance: 54.5 mL/min (A) (based on SCr of 1.69 mg/dL (H)). Recent Labs 10/30/21 0345 10/29/21 0343 10/28/21 0445 CREATININE 1.69* 1.65* 1.52* BUN 57* 58* 57* I/O Yesterday: 10/29 0701 - 10/30 0700 In: 3129 [P.O.:950; I.V.:1797] Out: 2275 [Urine:1375] Recommendations: Based on current renal function assessment, the following change(s) have been made to the patient's antimicrobial regimen: For CrCl 30 to 59 mL/min, dose cefepime 2 grams IV q12h We will continue to monitor the patient???s renal function and adjust antimicrobial dosing as needed. Please page the care area pharmacist with any questions you may have. Per P&T approved Renal Dose Adjustment Policy Jerica Parekh RPH Stacy Marin MD - 10/30/2021 7:35 AM EDT Images from the original note were not included. Inpatient Hematology/Oncology/SCT Progress Note Patient info: Name: Luis Manuel Mobley Jr. : 1960 PCP: LEISA Munguia PCP phone number: [phone] Date of Admission: 10/15/2021 ( Hospital Day 15 days ) Service: Hem/Onc Team A pg [phone] (09/03) Responsible Attending:Urban Dos Santos MD ID: Luis Manuel Mobley Jr. is a 61 y.o. Male with hx of paroxysmal Afib, c diff colitis c/b toxic megacolon s/p bowel resection and colostomy in may 2021, FLT3+ AML with positive [employer] disease??s/p CR w/ 7+3+Midostaurin c/b relapse tx w ventoclax + gilteritinib (held since 10/08) most with pre-transplant BM and LP showing FELY, admitted for MUD allo HSCT.Today is day +8 (day 0 is 3/8). Baseline weight: 107.1kg Donor: MUD ABO: Donor OO negative, recipient O positive HLA: 05/26 ID status: Donor and recipient both CMV negative Conditioning regimen: fludarabine, busulfan GVHD regimen: Rabbit ATG, methotrexate, tacrolimus 24 Hour Events: - yesterday, tunneled line slightly red and tender, mIVF 100ml/hr, tacro dose adjusted to 2mg bid, imodium changed to TID prn, added pepcid - Overnight, ostomy with liquid stool, got 1 dose of imodium, decreased appetite due to heartburn/nausea, got a unit of pRBC and platelets - This AM, reports heartburn still very bad with eating anything, didn't eat dinner last night - Weight: 101.3kg -> 101.2kg - In/out: +854ml (po 950, stool 900) - ANC 0 - Cr worsening 1.65 -> 1.69, urine lytes ordered Vitals: Last value Range last 24 hrs Temperature Temp: 36.5 ??C (97.7 ??F) Temp: [36.5 ??C (97.7 ??F)-37.1 ??C (98.8 ??F)] Heart Rate Heart Rate: 76 Heart Rate: [72-80] Blood Pressure BP: 120/77 BP: (107-125)/(66-85) Respiratory Rate Resp: 18 Resp: [15-18] SpO2 SpO2: 100 % SpO2: [99 %-100 %] Intake/Output Summary (Last 24 hours) at 10/30/2021 0735 Last data filed at 10/30/2021 0428 Gross per 24 hour Intake 3129 ml Output 2275 ml Net 854 ml Patient Vitals for the past 168 hrs: Weight 10/30/21 0420 101.2 kg (223 lb 1.7 oz) 10/29/21 1522 101.3 kg (223 lb 5.2 oz) 10/29/21 0338 100.4 kg (221 lb 5.5 oz) 10/28/21 1727 101.3 kg (223 lb 5.2 oz) 10/28/21 0558 100.1 kg (220 lb 10.9 oz) 10/27/21 1538 101.7 kg (224 lb 3.3 oz) 10/27/21 0524 100.4 kg (221 lb 5.5 oz) 10/26/21 1659 101.2 kg (223 lb 1.7 oz) 10/26/21 0339 101.5 kg (223 lb 12.3 oz) 10/25/21 1829 102.3 kg (225 lb 8.5 oz) 10/25/21 0240 102.9 kg (226 lb 13.7 oz) 10/24/21 1532 103.5 kg (228 lb 2.8 oz) 10/24/21 0316 104.3 kg (229 lb 15 oz) 10/23/21 1531 105.6 kg (232 lb 12.9 oz) Exam: GENERAL:?appeared in no acute distress, eating breakfast in bed MOUTH: lesion noted inside right cheek, no bleeding or pain noted CARDIOVASCULAR:??rrr no mrg PULMONARY:??CTAB on RA, no increased wob GASTROINTESTINAL:??Abdomen soft nontender to palpation w +BS. Colostomy with brown watery stool in place. SKIN:??No rashes, bruises or petechiae. ?? EXT: no Edema at ankles NEUROLOGICAL:??Alert and oriented to person, place and time. No focal deficits Medications: Scheduled Meds: ??? famotidine 20 mg Oral Daily ??? tacrolimus 2 mg Oral BID ??? pantoprazole EC 40 mg Oral BID ??? enoxaparin 40 mg Subcutaneous Daily ??? gabapentin 200 mg Oral TID ??? ceFEPime 2 g Intravenous Q8H ??? sodium chloride 0.9 % (flush) 5 mL Intravenous BID ??? metoprolol tartrate 12.5 mg Oral Q6H PIERCE ??? vancomycin 125 mg Oral BID ??? flecainide 50 mg Oral BID ??? supersaturated calcium phosphate 30 mL Oral 4 Times Daily ??? fluconazole 400 mg Oral Daily ??? acyclovir 800 mg Oral BID ??? [START ON 11/21/2021] sulfamethoxazole-trimethoprim DS 1 tablet Oral Daily ??? ursodioL 300 mg Oral Daily with breakfast ??? ursodioL 600 mg Oral Daily with dinner ??? [START ON 11/02/2021] metHOTREXate (PF) 5 mg/m2/dose (Treatment Plan Adjusted) Intravenous Once ??? filgrastim-sndz 600 mcg Subcutaneous Daily Continuous Infusions: ??? lactated Ringers 100 mL/hr (10/30/21 0411) PRN Meds:.camphor-menthoL, loperamide, alum-mag hydroxide-simeth, calcium carbonate, sucralfate, furosemide, furosemide, sodium chloride 0.9 % (flush), lidocaine, LORazepam, ondansetron, prochlorperazine, potassium chloride ER, potassium chloride ER, potassium chloride, magnesium sulfate, magnesium sulfate, potassium phosphate, potassium phosphate, heparin, porcine, sodium chloride 0.9 % (flush) Labs: Recent Labs 10/30/21 03410/29/21 03410/28/21 0850 10/28/21 0445 10/27/21 1250 10/27/21 0530 10/26/21 0325 10/25/21 0254 WBC 0.0* 0.0* -- 0.1* -- 0.4* 0.6* 1.0* HGB 6.6* 7.4* -- 7.9* -- 8.6* 8.1* 7.4* HCT 18.9* 21.4* -- 22.3* -- 25.0* 22.9* 21.0* PLATELET 9* 18* 29* 10* < > 10* 16* 21* NEUTROABS -- -- -- -- -- 0.39* 0.53* 0.95* < > = values in this interval not displayed. ANC 0 Recent Labs 10/30/2134410/29/2134210/28/21444 NA 139 139 136 K 5.1* 5.1* 5.0 CL 117* 115* 114* CO2 12* 13* 11* BUN 57* 58* 57* CREATININE 1.69* 1.65* 1.52* Recent Labs 10/30/2134410/29/2134210/28/21 044 CALCIUM 9.1 9.4 9.4 MAGNESIUM 0.62* 0.71 0.79 PHOS 3.8 4.4 4.7* Recent Labs 10/28/21 0445 10/25/21 0254 10/24/21 0316 AST 26 19 16 ALT 65* 28 28 ALKPHOS 104 68 70 BILITOT 0.3 0.3 0.3 BILIDIR 0.1 0.1 0.1 No results for input(s): INR, PT, PTT in the last 72 hours. Microbiology: BCx 10/20: NGTD UA 10/20: does not look infectious Microbiology Results (Last 30 days) Procedure Component Value Units Date/Time C. Difficile Screen [[id number]] Collected: 10/28/21 1207 Lab Status: Final result Specimen: Stool Updated: 10/28/21 1334 C Diff Screen Negative Comment: Ag/Tox Neg C. diff?? Negative Clostridium difficile is not present in the specimen. If patient is having diarrhea suspected to be from an infectious cause, then Soap & Water Contact Precautions are still required. Blood culture [[id number]] Collected: 10/20/21 173 Lab Status: Final result Specimen: Blood Updated: 10/25/21 2301 Blood Culture No growth at 5 days. Blood culture [[id number]] Collected: 10/20/21 173 Lab Status: Final result Specimen: Blood Updated: 10/25/21 2301 Blood Culture No growth at 5 days. Blood culture [[id number]] Collected: 10/19/21 1139 Lab Status: Final result Specimen: Blood from Antecubital, Left Updated: 10/24/21 1501 Blood Culture No growth at 5 days. Blood culture [[id number]] (Abnormal) Collected: 10/19/21 1133 Lab Status: Final result Specimen: Blood from Hand, Right Updated: 10/25/21 0910 Blood Culture -- Coagulase negative Staphylococcus species detected by PCR Interpretation of the importance of skin mitzy such as Coagulase Negative Staph, Viridans Strep, Corynebacteria and other Gram Positive organisms from a single Blood Culture set requires clinical correlation. Gram Stain Aerobic -- Growth detected in aerobic bottle. Gram Positive Cocci in clusters seen C. Difficile Screen [[id number]] Collected: 10/19/21 1020 Lab Status: Final result Specimen: Stool Updated: 10/19/21 1607 C Diff Screen Negative Comment: Ag/Tox Neg C. diff?? Negative Clostridium difficile is not present in the specimen. If patient is having diarrhea suspected to be from an infectious cause, then Soap & Water Contact Precautions are still required. COVID-19 PCR [[id number]] Collected: 10/19/21 0405 Lab Status: Final result Specimen: Nasopharyngeal Swab Updated: 10/19/21 1834 SARS-CoV-2 RNA Not Detected Comment: This result should be interpreted in combination with the clinical observations, patient history and epidemiological information in making a final diagnosis. For testing of asymptomatic individuals, assay performance characteristics and clinical utility have not been evaluated. Testing for SARS-CoV-2 (Severe acute respiratory syndrome coronavirus 2, formerly known as 2019 novel coronavirus or 2019-nCoV) to aid in the diagnosis of COVID-19 is performed using the [employer] m SARS-CoV-2 Assay as authorized by the FDA Emergency Use Authorization (EUA). This EUA assay is intended for In-vitro Diagnostic (IVD) use with respiratory specimens such as nasopharyngeal swabs collected from individuals during the acute phase of infection. This assay is performed based on the instructions for use provided by [employer] and additional guidance provided by CDC and FDA. Testing is performed in the [facility] within the Department of Pathology and Laboratory Medicine at [facility], certified under the Clinical Laboratory Improvement Amendments of 1988 (CLIA), 42 U.S.C. 263a, to perform high complexity tests. Assay performance has been verified according to clinical laboratory regulatory requirements for use with specimens collected from individuals suspected of COVID-19. Test results are provided above. A result of Not Detected indicates that the viral RNA target is not present above the limit of detection, but does not preclude SARS-CoV-2 infection. False negative results may occur if a specimen is improperly collected, transported or handled; if amplification inhibitors are present; or if inadequate numbers of viral particles are present in the specimen. When a diagnostic test is negative, the possibility of a false negative result should be considered in the context of a patient's recent exposures and the presence of clinical signs and symptoms consistent with COVID-19. A result of Detected indicates that RNA from SARS-CoV-2 was detected and the patient is infected. As required or requested by public health authorities, positive specimens may be sent for additional testing. Positive and negative predictive values for this test are highly dependent on disease prevalence. A result of Invalid indicates that neither the viral RNA targets nor the internal control target was detected. An invalid result suggests the presence of inhibitors. Recollection and re-testing is recommended in the case of an invalid result. CDC COVID-19 criteria for testing on human specimens and clinical management guidance information are available at the CDC Coronavirus Disease 2019 (COVID-19) webpage under Information for Healthcare Professionals (https://www.cdc.gov/coronavirus/2019-ncov/hcp/index.html) Additional information about this and other EUA tests can be found in provider and patient fact sheets at the following FDA website: https://www.fda.gov/medical-devices/oyryexcfrhf-wjxruef-7291-abeke-86-esdyevfgz- pda-iqqebknsjvxpbz-bwcjunc-devices/tqaoe-iqbaiobaixt-puwg SARS-Cov-2 RNA Source ULTRASOUND SPEC Swab COVID-19 PCR [[id number]] Collected: 10/15/212032 Lab Status: Final result Specimen: Nasopharyngeal Swab Updated: 10/16/21 0004 SARS-CoV-2 RNA PCR Not Detected Comment: This result should be interpreted in combination with the clinical observations, patient history and epidemiological information. For testing of asymptomatic individuals, assay performance characteristics and clinical utility have not been evaluated. Testing for SARS-CoV-2 (Severe acute respiratory syndrome coronavirus 2, formerly known as 2019 novel coronavirus or 2019-nCoV) to aid in the diagnosis of COVID-19 is performed using the [employer]plex[employer] COVID-19 Direct Assay by [employer] as authorized by the FDA issued Emergency Use Authorization (EUA). This assay is intended for In-vitro Diagnostic (IVD) use with nasopharyngeal swabs collected from individuals meeting the CDC criteria for testing. The assay is performed based on the instructions for use and additional guidance provided by the FDA. Testing is performed in the Microbiology Laboratory within the Department of Pathology and Laboratory Medicine at [facility], certified under the Clinical Laboratory Improvement Amendments of 1988 (CLIA), 42 U.S.C. section 263a, to perform high complexity tests. Assay performance has been verified according to clinical laboratory regulatory requirements. Test results are provided above. A result of Not Detected indicates that the viral RNA target is not present but does not preclude SARS-CoV-2 infection. False negative results may occur if a specimen is improperly collected, transported or handled; if amplification inhibitors are present; or if inadequate numbers of viral particles are present in the specimen. A result of Detected suggests a current or recent infection and the patient is presumed to be infected. Positive and negative predictive values for this test are highly dependent on disease prevalence. A result of Invalid indicates the inability to conclusively determine the presence or absence of SARS-CoV-2 RNA in the sample which can be due to a variety of factors. Recollection is recommended in the case of an invalid result. CDC COVID-19 criteria for testing on human specimens and clinical management guidance information are available at the CDC Coronavirus Disease 2019 (COVID-19) webpage under Information for Healthcare Professionals (https://www.cdc.gov/coronavirus/2019-ncov/hcp/index.html). Additional information about this and other EUA tests can be found in provider and patient fact sheets at the following FDA website: https://www.fda.gov/medical-devices/wnekksfxrpx-kvvjmsi-4453-harxx-28-ugzyuxwie- ewu-fwjkukcvytnyuv-ihvebgf-devices/akkpx-geokmpvcmuj-hxia SARS-CoV-2 Source ULTRASOUND SPEC Swab Pertinent radiology/diagnostic studies: ASSESSMENT/PLAN: Luis Manuel Mobley Jr. is a 61 y.o. 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 now day + 8 (day 0 is 10/22) for MUD HSCT. Patient has been afebrile for the last several days. Infectious workup remains negative. Tolerated stem cell infusion well on 10/22, had some rigors and nausea post-infusion that resolved with medications. Counts dropping as expected. Continue cefepime due to high risk of infection given HSCT status. Patient's high ostomy output (2-3L per day) improved with scheduled imodium. However, Cr (likely pre-renal) seems to plateau today, will continue mIVF. Patient is developing worsening heartburn, may be related to mucositis, currently has tums, carafate, maalox, bid protonix, and famotidine. Will add BMX and viscous lidocaine and continue to monitor for signs of mucositis. For his bilateral feet neuropathy, will continue gabapentin to 200mg TID. Summary Plan: - imodium once daily, has prn available - mIVF at 75ml/hr for another 24 hours - monitor Cr and urine lytes - monitor ostomy output - continue zarxio from day +7 to when ANC > 1500 - continue gabapentin to 200mg TID - continue cefepime until ANC >500 - monitor I/O and daily weights - start BMX and viscous lidocaine - decrease tac to 2mg AM and 2mg PM - tacrolimus level Thursday and ?? Plan: #STACIE, pre-renal - pre-renal, noted on 10/27 - s/p 1L Bolus on 10/27 and 10/28, encourage imodium to thicken ostomy output - mIVF (10/29 -> 10/31) - continue to monitor #AML #MUD HSCT Day (-7): Fludarabine: Day (-6): Fludarabine, Busulfan, Rabbit ATG: Day (-5): Fludarabine, Busulfan, Rabbit ATG: Day (-4): Fludarabine, Busulfan, Rabbit ATG: Day (-3): Fludarabine, Busulfan: Day (0): Stem Cell Infusion: Day (+1): metHOTREXate: Day (+3): metHOTREXate: Day (+6): metHOTREXate: Day (+11): metHOTREXate: General - q4h vitals - strict Is/Os 2x daily - weigh patient 2x daily, notify provider if weight increases by 1kg or more in 12 hour period ?- lasix 20mg IV prn weight gain >1 kg above admission baseline ?- lasix 20mg IV for weight gain 1 kg over 12 hours or input exceeding output by greater than 1,000 ml/12h - neutropenic precautions - incentive spirometry q2h while awake - activity as tolerated - electrolyte replacement Chemotherapy/Support - Busulfan 204mg??day (-6) to day (-3) -??Fludarabine??61??mg 102ml infusion once over 30 minutes day -7 Then every 24 hours at 0900 for 4 doses day (-6) to day (-3) - Rabbit ATG??124.8mg over 10 hours day (-6), 166.4mg on day (-5) 208??on day (-4).?? - Day 0 stem cell infusion. Premedicate with acetaminophen 650mg, diphenhydramine 50mg) - Methotrexate??10mg??day (+1), day (+3), day (+6), day (+11). Hold for serum creatinine >2, bilirubin >5, fluid accumulation (large effusion or ascites), severe mucositis if potential need for intubation. - filgrastim??600mcg qd starting day (+7) until ANC >1500 ?? Laboratory Monitoring - weekly CMV PCR starting day +10, then weekly thereafter - IgG every 2 weeks starting day +1 to day +100 - U/A s/ reflex culture on admission, then daily on days -2, -1, 0? Transfusion parameters - Hgb <??6.5 - PLT <10, or if febrile??or bleeding??<20 - keep active T&S once hgb <8 ?? Prophylaxis Seizure ppx ?-phenytoin 300 day (-6) through (-1) - GI ppx ?- pantoprazole 40mg qd - mucositis ppx ?- supersaturated calcium phosphate oral solution 30ml 4x daily starting on admission until resolution of mucositis and ANC ?>500 - infection ppx ?- fluconazole 400mg qd starting day (0) ?- levofloxacin 750mg qd starting day (0) until ANC >500, changed tocefepime due to fever on 10/19 ?- acyclovir 800mg bid starting day (-7) ?- bactrim DS 1 tablet daily from day (-7) through day (-2) ?- bactrim DS 1 tablet MWF starting day (+30) - GVHD ppx?-??Tacrolimus??2.5mg BID??starting day (- 2)?target 5-10 trough - VOD ppx ?- lovenox 40mg qd day (-7) through (30) per Dr. Modi's note, he should continue lovenox 100mg qd until plt apx <40 then switch to VOD ppx dose. ?- ursodiol 300mg qAM??&??qPM day (-7) through day (+30) Hydration - NaCl 0.9% continuous??150ml/hr x??day (-6) ??Through (-3) ?? Pain/Nausea/Appetite - avoid acetaminophen through??day??(-3) - avoid steroid antiemetics - palonosetron 0.25mg day (-6) - aprepitant 130mg day (-6) prior to??busulfan - lorazepam 0.5mg IV q4h prn nausea, anxiety - ondansetron??8mg q8h prn nausea, vomiting beginning day (-3) - prochlorperazine 10mg IV q6h prn nausea, vomiting - use ondansetron >??prochlorperazine or promethazine >??lorazepam >??metoclopramide - olanzapine 5mg qhs starting day (-3) for 5 doses? #Fever, resolved - 102.9 10/19 - C. Diff negative - UA unremarkable - BCx 3/6 negative - starting cefepime 10/19 - p - start vanc 10/20 - 10/22 #Paroxysmal Afib - Continue home metoprolol (convert to tartrate), flecainide ?? #Hx of provoked PE in Apr 2021 - On lovenox 100mg qd (held prior to central line placement) - Continue until plt reach approximately 40 followed by switch to prophylactic dosing. ?? #Hx of C diff colitis - Continue home PO vancomycin - Ostomy care #Bilateral Feet tingling - pt reports having baseline bilateral feet tingling that was noted to be worsened on on 10/21 (2 daysafter completing 5 days of fludarabine), strength intact, no loss of sensation - start gabapentin 100mg TID (10/21 - 10/23), 200mg TID (10/23 - p) #GERD - takes protonix at home - current regimen: protonix bid, carafate, tums, famotidine #Pancytopenia 2/2 to chemo and disease - continue to monitor, transfuse as needed for support #Routine DVT PPx: VOD ppx lovenox 40mg b/c platelet < 40 (holding home dose 100mg) Diet: Neutropenic (BMT) diet Dispo: 1-[place] CODE STATUS: Attempt Cardiopulmonary Resuscitation - Inpatient Stacy Marin MD PGY1 Internal Medicine 10/30/2021 Heme/Onc/BMT Team A Pager #[phone] Brenda Crow RN - 10/30/2021 6:47 AM EDT Illness Severity [x] Stable [] Watcher [] Unstable Patient Summary Reason for admission: Day +8 (10/30) of MUD allo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 Significant 24 hour events: 3/15 AM: Central line slightly reddened and tender to palpation at exit site. MDs notified. Has continuous fluids running at 100/hr. Scheduled Pepcid started and maalox given x 1 for heartburn today. Total of 700 mL stool output. Imodium given x 1. [place] level 9.4 from 10/28-doses adjusted today. 10/29 PM Ostomy output liquid stool, connected to overnight bag and given 1 dose of immodium in the evening. LR continues at 100cc/hr. Nausea and attempted emesis in evening with retching. Zofran dosed with relief. Carafate x 1 for heartburn. Only able to take some pudding with pills. Decreased appetite due to heartburn/nausea. Hem + stool and trace hem + urine. Hem 6.6 and platelets 9, ordered to transfuse both. Platelets hung per blood product transfusion policy at 0650. Magnesium 2gm IV hung (1st of 2 bags) at 0535. Will need 2nd dose around 07. Chemo plan & supportive medication: Fludarabine/ Busulfan/ATG/MTX Baseline Weight: 107.1 kg AM weight: 101.2 kg PM weight: [place] level 9.4 (10/28)-- 2mg PO bid Action List QD zarxio weekly CMV PCR starting day +10 MTX Day +11 Monitor for mucositis Monitor heartburn: prn maalox, tums, carafate + sched pepcid and pantoprozole Monitor nausea, prn antiemetic- avoid steroid antiemetics Ostomy care, monitor output - imodium prn VOD px: ursodiol and lovenox- maintain plt > 10 hold lovenox if <10 platelets Continue IV antibiotics - cefepime, PO Vanco monitor I/O and daily weights Monitor renal function electrolyte replacement per OCT instruction--[]Needs 2nd magnesium 2gm bag after 07 x 1 more dose Type and screen expires 11/02 at 2359 [place] level Q Mon, Thurs AM Transfusion parameters - Hgb < 6.5 - PLT <10, or if febrile or bleeding <20 - keep active T&S once hgb <8 Julianne Graham RN - 10/29/2021 9:26 PM EDT Illness Severity [x] Stable [] Watcher [] Unstable Patient Summary Reason for admission: Day +7 (3/15) of MUD alloSCT for AML conditioned with Flu/Bu/ATG/MTX Relevant PMH: s/p bowel resection/colectomy d/t toxic megacolon, Cdiff, Bilateral PE, hx paroxysmal AFIB Significant 24 hour events: 10/29 AM: Central line slightly reddened and tender to palpation at exit site. MDs notified. Has continuous fluids running at 100/hr. Scheduled Pepcid started and maalox given x 1 for heartburn today. Total of 700 mL stool output. Imodium given x 1. [place] level 9.4 from 10/28-doses adjusted today. 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 is a 61 y.o. right handed male admitted on 10/15/2021. Pt admitted for planned admission for MUD HSCT; he underwent 10/22/21 SCT and issues with nausea, rigors, and tachycardia post procedure. Patient has also had issues with STACIE, heartburn, nausea, high ostomy output, and heme + stool. Pt with hx of??paroxysmal Afib,??neuropathy, GERD, BPH, c diff colitis c/b toxic megacolon s/p bowelresection and colostomy??in may 2021,??FLT3+ AML with positive [employer] disease??s/p CR w/ 7+3+Midostaurin c/b relapse tx w ventoclax + gilteritinib (held since 10/08) with pre-transplant BM and LP showing FELY. He is being managed on . Patient with the following active problems: Past Medical History: Diagnosis Date ??? AML (acute myeloblastic leukemia) 04/2021 ??? BPH (benign prostatic hyperplasia) ??? GERD (gastroesophageal reflux disease) ??? Paroxysmal atrial fibrillation ??? 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 Active Non-Hospital Problems Diagnosis ??? Paroxysmal atrial fibrillation ??? GERD (gastroesophageal reflux disease) ??? BPH (benign prostatic hyperplasia) ??? Attention to ileostomy ??? Clostridium difficile colitis ??? Acute leukemia Past Surgical History: Procedure Laterality Date ??? ACHILLES TENDON SURGERY ??? IR MEDIPORT PLACEMENT 10/04/2021 IR Mediport Placement 10/04/2021 Kelli Diaz PA [facility] ??? IR TUNNELED CENTRAL VENOUS ACCESS NON-DIALYSIS 10/15/2021 IR Tunneled Central Venous Access Non-Dialysis 10/15/2021 Kelli Diaz PA [facility] ? ? PRO DIAGNOSTIC BONE MARROW BIOPSIES & ASPIRATIONS Right [place] BONE MARROW BIOPSY AND ASPIRATION; DIAGNOSTIC performed by Parviz Modi MD [facility] ? ? PRO DIAGNOSTIC BONE MARROW BIOPSIES & ASPIRATIONS N/A 10/07/20[place] [place] BONE MARROW BIOPSY AND ASPIRATION; DIAGNOSTIC performed by Parviz Modi MD [facility] ??? PRO EXPLORATORY OF ABDOMEN Midline 05/26/2021 @EXPLORATORY LAPAROTOMY, WITH/WITHOUT BIOPSY(S) (WRVU 12.54) performed by Mark Hernandes MD [facility] MA[facility] OR ??? PRO ILEOSTOMY/JEJUNOSTOMY, NONTUBE N/A 05/28/2021 @ILEOSTOMY OR JEJUNOSTOMY, NON TUBE (WRVU 17.59) performed by Lety Walter MD at [facility] MA[facility] OR ??? PRO REOPEN RECENT ABD EXPLORATORY N/A 05/28/2021 @EXPLORATORY LAPAROTOMY, REOPENING OF RECENT (WRVU 17.63) performed by Lety Walter MD at [facility] MA[facility] OR ??? TONSILLECTOMY AND ADENOIDECTOMY ??? XR FLUORO GUIDED LUMBAR PUNCTURE N/A 07/12/2021 XR Fluoro Guided Lumbar Puncture 07/12/2021 Frances Green MD [facility] RAD XRAY ??? XR FLUORO GUIDED LUMBAR PUNCTURE FOR IT CHEMOTHERAPY N/A 07/16/2021 XR Fluoro Guided Lumbar Puncture For IT Chemotherapy 07/16/2021 Nas Patino MD [facility] RAD XRAY ??? XR FLUORO GUIDED LUMBAR PUNCTURE FOR IT CHEMOTHERAPY N/A 07/19/2021 XR Fluoro Guided Lumbar Puncture For IT Chemotherapy 07/19/2021 Shae Alford MD [facility] RAD XRAY ??? XR FLUORO GUIDED LUMBAR PUNCTURE FOR IT CHEMOTHERAPY N/A 07/25/2021 XR Fluoro Guided Lumbar Puncture For IT Chemotherapy 07/25/2021 Nas Patino MD [facility] RAD XRAY ??? XR FLUORO GUIDED LUMBAR PUNCTURE FOR IT CHEMOTHERAPY N/A 07/29/2021 XR Fluoro Guided Lumbar Puncture For IT Chemotherapy 07/29/2021 [facility] RAD XRAY ??? XR FLUORO GUIDED LUMBAR PUNCTURE FOR IT CHEMOTHERAPY N/A 08/05/2021 XR Fluoro Guided Lumbar Puncture For IT Chemotherapy 08/05/2021 Nas Patino MD [facility] RAD XRAY ??? XR FLUORO GUIDED LUMBAR PUNCTURE FOR IT CHEMOTHERAPY N/A 08/01/2021 XR Fluoro Guided Lumbar Puncture For IT Chemotherapy 08/01/2021 Yolette Solano, HEYDI [facility] RAD XRAY ??? XR FLUORO GUIDED LUMBAR PUNCTURE FOR IT CHEMOTHERAPY N/A 07/22/2021 XR Fluoro Guided Lumbar Puncture For IT Chemotherapy 07/22/2021 [facility] RAD XRAY ??? XR FLUORO GUIDED LUMBAR PUNCTURE FOR IT CHEMOTHERAPY N/A 08/12/2021 XR Fluoro Guided Lumbar Puncture For IT Chemotherapy 08/12/2021 Jona Lowry MD [facility] RAD XRAY ??? XR FLUORO GUIDED LUMBAR PUNCTURE FOR IT CHEMOTHERAPY N/A 08/26/2021 XR Fluoro Guided Lumbar Puncture For IT Chemotherapy 08/26/2021 Yolette Solano, HEYDI [facility] RAD XRAY ??? XR FLUORO GUIDED LUMBAR PUNCTURE FOR IT CHEMOTHERAPY N/A 09/05/2021 XR Fluoro Guided Lumbar Puncture For IT Chemotherapy 09/05/2021 Yolette Solano, [employer] [facility] RAD XRAY ??? XR FLUORO GUIDED LUMBAR PUNCTURE FOR IT CHEMOTHERAPY N/A 09/09/2021 XR Fluoro Guided Lumbar Puncture For IT Chemotherapy 09/09/2021 Yolette Solano, HEYDI [facility] RAD XRAY ??? XR FLUORO GUIDED LUMBAR PUNCTURE FOR IT CHEMOTHERAPY N/A 09/27/2021 XR Fluoro Guided Lumbar Puncture For IT Chemotherapy 09/27/2021 Yolette Solano, HEYDI [facility] RAD XRAY Social History: Home set-up: Lives with his Partner, Chai, and Chai works but will be taking time off when he is d/c'd home. It is a 2 level home, but he stays on one level, laundry is in the basement. Bathroom Set-up: walk in shower with built in seat Stairs: 3 steps with a door or counter to hold onto. Baseline Mobility: walks without a walker, has not been driving since Apr due to double vision, independent with ADLs, enjoys TV, Football and puttering around the house. 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 Patient empties own ostomy, partner helps change ostomy. Sleeps in a regular bed. Equipment at home: has a rolling walker, and built in shower seat. Fall history: none. Precautions/Special Considerations: Neutropenic Precautions. Lines: left chest port, Right side ostomy. Activity Orders: activity as tolerated Diet: neutropenic diet. Mobility and Positioning Recommendations: ?? Pt. to utilize rolling walker and contact guard with assist for IV pole and chair follow to sit as needed for ambulation with nursing. ?? Supervision for transfers ?? Please encourage up to chair for meal times as able. ?? Pt encouraged to ambulate frequently with staff, getting into the bathroom for toileting and walking out in the [place] >/= 3 times daily as able. Subjective: ???I was walking a mile when I came in here without a walker, I haven't walked in a few days.?? I am competitive, I don't like to fail. Let ago again, when walking in the hallway today. Objective: Pt seen for evaluation today. Pt's friend, Kit, present for session. Pain: Reports only issues with Heartburn, no pain. Per MD notes may be related to mucositis. Vital Signs: Heart Rate: 72 (with walking HR up to 114) BP: (115/75 per RN prior to PT) SpO2: 100 % (with walking O2=92-100% on RA.) O2 Device: None (Room air) Mental Status: alert, oriented to person, place, and time Vision: glasses for reading. Skin: Right side ostomy, left side chest port. Musculoskeletal: ROM: AROM of BUEs and BLEs WFLs. Strength: WFLs, but not tested. Sensation: intact to light touch, but reports neuropathy and numbness in feet. Bed Mobility: Supine to Sit: with supervision Sit to Supine: not done, left sitting in chair visiting with friend Transfers: Sit to Stand: with supervision Stand to Sit: with supervision Gait: Distance: 820 ft, and 340 ft Device used: Rolling walker Level of assist: Supervision to contact guard and assist with IV pole, and 2nd follow with chair. Gait mechanics: step through gait, gait speed improved as he walked. Balance: Sitting Static: steady Sitting Dynamic: steady- donned shoes and socks sitting EOB. Standing Static: steady with walker Standing Dynamic / Gait: With walker with contact guard And assist for IV pole. Education: patient and friend have been educated on Transfers, Assistive device/technique, Exercise,Breathing exercises, Positioning, Safety , Activity pacing/Energy conservation, Role of therapy, Discharge planning and to call for assistance with all mobility, and on mobility progression. Friend to let staff air tactical officer know when he leaves so pt was in a comfortable spot after patient left. and verbalize understanding. Patient status, treatment, and mobility recommendations discussed with nursing. Ther-ex: reviewed deep breathing and AROM ther-ex, and to walk more daily with staff. Assessment: Luis Manuel Mobley JrNabil was seen today for physical therapy evaluation. Patient presenting friendly and motivated to work with PT, but reports decreased mobility since SCT and general deconditioning. He was tachycardic with activity, and reported fatigue, but was motivated. He needs a walker and one assist for safety with mobility at this time. He was independent at baseline. He is eager to regain his mobility and function, And had good motivation and safety awareness. Expect steady gains in his mobility and function. He plans to return home with his partner when medically stable. Will continue PT to safely progress patient's mobility and function while the remains in-house working toward a safe d/c plan. Discharge Recommendations: Based on the current findings, Anticipated Discharge Disposition (PT): home with home health, home with supervision when medically ready for hospital discharge. Consult Recommendations: No other consults recommended at this time. Equipment needs: Anticipated Equipment Needs at Discharge (PT): to be determined Goals: To be achieved by 12/02/21: 1. Pt. to demonstrate knowledge of safety limitations and precautions and will appropriately requestassistance for functional activities and to mobilize. 2. Pt. to demonstrate understanding of AROM and breathing exercises. 3. Pt. to perform bed mobility independently. 4. Pt. to perform Sit<->stand and Stand Pivot transfers independently using no assistive device. 5. Pt. to ambulate 500 feet with modified independence using least restrictive or no device. 6. Pt. to ambulate up/down 3 step/stairs using one rail with modified independence. 7. Family or caregiver to demonstrate understanding of therapeutic interventions to support the careof the patient. Plan: Therapy Frequency (PT): 1-3 times/wk for therapy including balance training, bed mobility training, gait training, home exercise program, motor coordination training, neuromuscular re-education, patient/family education, postural re-education, range of motion, stair training, strengthening, stret bud, transfer training and d/c planning, functional mobility training, selfcare and home management training. 2017 PT Evaluation Code Rationale: ?? Diagnosis [...] in this evaluation. Time IN / OUT: 1225 to 1323 Total Minutes, Physical Therapy: 58 Billing Code: evaluation and functional mobilty RODERICK JONES, PT Pager: [phone] Physical Therapy Inpatient Rehabilitation Department Evelina Martino - 10/29/2021 12:28 PM EDT Foot massage given by VIRGINIA Lassiter. Prior to session pain rated 4/10;after session 0/10. Luis Manuel appreciative, stating That felt really good! My neuropathy in my feet feels better!. [facility] Team will continue to try and see 2-3x/week. Stacy Marin MD - 10/29/2021 10:25 AM EDT Images from the original note were not included. Inpatient Hematology/Oncology/SCT Progress Note Patient info: Name: Luis Manuel Mobley Jr. : 1960 PCP: LEISA Munguia PCP phone number: [phone] Date of Admission: 10/15/2021 ( Hospital Day 14 days ) Service: Hem/Onc Team A pg [id number] (09/03) Responsible Attending:Urban Dos Santos MD ID: Luis Manuel Mobley Jr. is a 61 y.o. Male with hx of paroxysmal Afib, c diff colitis c/b toxic megacolon s/p bowel resection and colostomy in may 2021, FLT3+ AML with positive [employer] disease??s/p CR w/ 7+3+Midostaurin c/b relapse tx w ventoclax + gilteritinib (held since 10/08) most with pre-transplant BM and LP showing FELY, admitted for MUD allo HSCT.Today is day +7 (day 0 is 10/22). 24 Hour Events: - Yesterday, wound care cauterized a small bleeding ulcer at stoma, made imodium TID scheduled, tac level 9.4, C. Diff negative, got 1L bolus, Weight up in the evening from 100.1kg to 101.3kg, R buccalmucosal lesion - Overnight, mIVF 125ml/hr for 10h, ostomy output decreased and thicker with scheduled imodium - This AM, reports heartburn still very bad, able to keep down soup and drinks but not solid food sodidn't eat dinner yesterday - VSS - Weight 100.1kg -> 100.4kg - Net + 267ml (ostomy output 1475ml, only 275 overnight) - K 5.1, Cr 1.52 -> 1.65 Vitals: Last value Range last 24 hrs Temperature Temp: 37.1 ??C (98.7 ??F) Temp: [36 ??C (96.8 ??F)-37.1 ??C (98.7 ??F)] Heart Rate Heart Rate: 74 Heart Rate: [74-77] Blood Pressure BP: 117/78 BP: (114-159)/(77-91) Respiratory Rate Resp: 16 Resp: [16-18] SpO2 SpO2: 99 % SpO2: [99 %-100 %] Intake/Output Summary (Last 24 hours) at 10/29/2021 0714 Last data filed at 10/29/2021 0700 Gross per 24 hour Intake 2892.2 ml Output 2625 ml Net 267.2 ml Patient Vitals for the past 168 hrs: Weight 10/29/21 0338 100.4 kg (221 lb 5.5 oz) 10/28/21 1727 101.3 kg (223 lb 5.2 oz) 10/28/21 0558 100.1 kg (220 lb 10.9 oz) 10/27/21 1538 101.7 kg (224 lb 3.3 oz) 10/27/21 0524 100.4 kg (221 lb 5.5 oz) 10/26/21 1659 101.2 kg (223 lb 1.7 oz) 10/26/21 0339 101.5 kg (223 lb 12.3 oz) 10/25/21 1829 102.3 kg (225 lb 8.5 oz) 10/25/21 0240 102.9 kg (226 lb 13.7 oz) 10/24/21 1532 103.5 kg (228 lb 2.8 oz) 10/24/21 0316 104.3 kg (229 lb 15 oz) 10/23/21 1531 105.6 kg (232 lb 12.9 oz) 10/23/21 0410 106.5 kg (234 lb 12.6 oz) 10/22/21 1627 107.3 kg (236 lb 8.9 oz) Exam: GENERAL:?appeared in no acute distress, eating breakfast in bed MOUTH: lesion noted inside right cheek, no bleeding or pain noted CARDIOVASCULAR:??rrr no mrg PULMONARY:??CTAB on RA, no increased wob GASTROINTESTINAL:??Abdomen soft nontender to palpation w +BS. Colostomy with brown watery stool in place. SKIN:??No rashes, bruises or petechiae. ?? EXT: no Edema at ankles NEUROLOGICAL:??Alert and oriented to person, place and time. No focal deficits Medications: Scheduled Meds: ??? loperamide 2 mg Oral TID ??? pantoprazole EC 40 mg Oral BID ??? enoxaparin 40 mg Subcutaneous Daily ??? gabapentin 200 mg Oral TID ??? ceFEPime 2 g Intravenous Q8H ??? sodium chloride 0.9 % (flush) 5 mL Intravenous BID ??? metoprolol tartrate 12.5 mg Oral Q6H PIERCE ??? vancomycin 125 mg Oral BID ??? flecainide 50 mg Oral BID ??? supersaturated calcium phosphate 30 mL Oral 4 Times Daily ??? fluconazole 400 mg Oral Daily ??? acyclovir 800 mg Oral BID ??? [START ON 11/21/2021] sulfamethoxazole-trimethoprim DS 1 tablet Oral Daily ??? tacrolimus 0.03 mg/kg/dose (Treatment Plan Adjusted) Oral 2 times per day ??? ursodioL 300 mg Oral Daily with breakfast ??? ursodioL 600 mg Oral Daily with dinner ??? [START ON 11/02/2021] metHOTREXate (PF) 5 mg/m2/dose (Treatment Plan Adjusted) Intravenous Once ??? filgrastim-sndz 600 mcg Subcutaneous Daily Continuous Infusions: PRN Meds:.alum-mag hydroxide-simeth, calcium carbonate, sucralfate, furosemide, furosemide, sodium chloride 0.9 % (flush), lidocaine, LORazepam, ondansetron, prochlorperazine, potassium chloride ER, potassium chloride ER, potassium chloride, magnesium sulfate, magnesium sulfate, potassium phosphate, potassium phosphate, heparin, porcine, sodium chloride 0.9 % (flush) Labs: Recent Labs 10/29/21 0343 10/28/21 0850 10/28/21 0445 10/27/21 1250 10/27/21 0530 10/26/21 0325 10/25/21 0254 WBC 0.0* -- 0.1* -- 0.4* 0.6* 1.0* HGB 7.4* -- 7.9* -- 8.6* 8.1* 7.4* HCT 21.4* -- 22.3* -- 25.0* 22.9* 21.0* PLATELET 18* 29* 10* < > 10* 16* 21* NEUTROABS -- -- -- -- 0.39* 0.53* 0.95* < > = values in this interval not displayed. ANC pending today (0.39 yesterday) Counts dropping as expected Recent Labs 10/29/21 03410/28/21 0445 10/27/21 0530 NA 139 136 136 K 5.1* 5.0 5.2* CL 115* 114* 110* CO2 13* 11* 13* BUN 58* 57* 54* CREATININE 1.65* 1.52* 1.49 Recent Labs 10/29/2134210/28/215 10/27/21 0530 CALCIUM 9.4 9.4 9.8 MAGNESIUM 0.71 0.79 1.00 PHOS 4.4 4.7* 4.6* Recent Labs 10/28/21 0445 10/25/21 0254 10/24/21 0316 AST 26 19 16 ALT 65* 28 28 ALKPHOS 104 68 70 BILITOT 0.3 0.3 0.3 BILIDIR 0.1 0.1 0.1 No results for input(s): INR, PT, PTT in the last 72 hours. Microbiology: BCx 10/20: NGTD UA 10/20: does not look infectious Microbiology Results (Last 30 days) Procedure Component Value Units Date/Time C. Difficile Screen [[id number]] Collected: 10/28/21 1207 Lab Status: Final result Specimen: Stool Updated: 10/28/21 1334 C Diff Screen Negative Comment: Ag/Tox Neg C. diff?? Negative Clostridium difficile is not present in the specimen. If patient is having diarrhea suspected to be from an infectious cause, then Soap & Water Contact Precautions are still required. Blood culture [[id number]] Collected: 10/20/21 173 Lab Status: Final result Specimen: Blood Updated: 10/25/21 2301 Blood Culture No growth at 5 days. Blood culture [[id number]] Collected: 03/06/22 1732 Lab Status: Final result Specimen: Blood Updated: 10/25/21 2301 Blood Culture No growth at 5 days. Blood culture [[id number]] Collected: 10/19/21 1139 Lab Status: Final result Specimen: Blood from Antecubital, Left Updated: 10/24/21 1501 Blood Culture No growth at 5 days. Blood culture [[id number]] (Abnormal) Collected: 10/19/21 1133 Lab Status: Final result Specimen: Blood from Hand, Right Updated: 10/25/21 0910 Blood Culture -- Coagulase negative Staphylococcus species detected by PCR Interpretation of the importance of skin mitzy such as Coagulase Negative Staph, Viridans Strep, Corynebacteria and other Gram Positive organisms from a single Blood Culture set requires clinical correlation. Gram Stain Aerobic -- Growth detected in aerobic bottle. Gram Positive Cocci in clusters seen C. Difficile Screen [[id number]] Collected: 10/19/21 1020 Lab Status: Final result Specimen: Stool Updated: 10/19/21 1607 C Diff Screen Negative Comment: Ag/Tox Neg C. diff?? Negative Clostridium difficile is not present in the specimen. If patient is having diarrhea suspected to be from an infectious cause, then Soap & Water Contact Precautions are still required. COVID-19 PCR [[id number]] Collected: 10/19/21 0405 Lab Status: Final result Specimen: Nasopharyngeal Swab Updated: 10/19/21 1834 SARS-CoV-2 RNA Not Detected Comment: This result should be interpreted in combination with the clinical observations, patient history and epidemiological information in making a final diagnosis. For testing of asymptomatic individuals, assay performance characteristics and clinical utility have not been evaluated. Testing for SARS-CoV-2 (Severe acute respiratory syndrome coronavirus 2, formerly known as 2019 novel coronavirus or 2019-nCoV) to aid in the diagnosis of COVID-19 is performed using the [employer] m SARS-CoV-2 Assay as authorized by the FDA Emergency Use Authorization (EUA). This EUA assay is intended for In-vitro Diagnostic (IVD) use with respiratory specimens such as nasopharyngeal swabs collected from individuals during the acute phase of infection. This assay is performed based on the instructions for use provided by [employer] and additional guidance provided by CDC and FDA. Testing is performed in the [facility] within the Department of Pathology and Laboratory Medicine at [facility], certified under the Clinical Laboratory Improvement Amendments of 1988 (CLIA), 42 U.S.C. 263a, to perform high complexity tests. Assay performance has been verified according to clinical laboratory regulatory requirements for use with specimens collected from individuals suspected of COVID-19. Test results are provided above. A result of Not Detected indicates that the viral RNA target is not present above the limit of detection, but does not preclude SARS-CoV-2 infection. False negative results may occur if a specimen is improperly collected, transported or handled; if amplification inhibitors are present; or if inadequate numbers of viral particles are present in the specimen. When a diagnostic test is negative, the possibility of a false negative result should be considered in the context of a patient's recent exposures and the presence of clinical signs and symptoms consistent with COVID-19. A result of Detected indicates that RNA from SARS-CoV-2 was detected and the patient is infected. As required or requested by public health authorities, positive specimens may be sent for additional testing. Positive and negative predictive values for this test are highly dependent on disease prevalence. A result of Invalid indicates that neither the viral RNA targets nor the internal control target was detected. An invalid result suggests the presence of inhibitors. Recollection and re-testing is recommended in the case of an invalid result. CDC COVID-19 criteria for testing on human specimens and clinical management guidance information are available at the CDC Coronavirus Disease 2019 (COVID-19) webpage under Information for Healthcare Professionals (https://www.cdc.gov/coronavirus/2019-ncov/hcp/index.html) Additional information about this and other EUA tests can be found in provider and patient fact sheets at the following FDA website: https://www.fda.gov/medical-devices/jewcuxbbqpn-dhwweoc-6734-yipdg-98-zwyaiepdb- vzv-igipekyxhflfjg-hjeenjf-devices/vqaqz-xkpijazgpgu-xbzh SARS-Cov-2 RNA Source ULTRASOUND SPEC Swab COVID-19 PCR [[id number]] Collected: 10/15/212032 Lab Status: Final result Specimen: Nasopharyngeal Swab Updated: 10/16/21 0004 SARS-CoV-2 RNA PCR Not Detected Comment: This result should be interpreted in combination with the clinical observations, patient history and epidemiological information. For testing of asymptomatic individuals, assay performance characteristics and clinical utility have not been evaluated. Testing for SARS-CoV-2 (Severe acute respiratory syndrome coronavirus 2, formerly known as 2019 novel coronavirus or 2019-nCoV) to aid in the diagnosis of COVID-19 is performed using the [employer] COVID-19 Direct Assay by [employer] as authorized by the FDA issued Emergency Use Authorization (EUA). This assay is intended for In-vitro Diagnostic (IVD) use with nasopharyngeal swabs collected from individuals meeting the CDC criteria for testing. The assay is performed based on the instructions for use and additional guidance provided by the FDA. Testing is performed in the Microbiology Laboratory within the Department of Pathology and Laboratory Medicine at [facility], certified under the Clinical Laboratory Improvement Amendments of 1988 (CLIA), 42 U.S.C. section 263a, to perform high complexity tests. Assay performance has been verified according to clinical laboratory regulatory requirements. Test results are provided above. A result of Not Detected indicates that the viral RNA target is not present but does not preclude SARS-CoV-2 infection. False negative results may occur if a specimen is improperly collected, transported or handled; if amplification inhibitors are present; or if inadequate numbers of viral particles are present in the specimen. A result of Detected suggests a current or recent infection and the patient is presumed to be infected. Positive and negative predictive values for this test are highly dependent on disease prevalence. A result of Invalid indicates the inability to conclusively determine the presence or absence of SARS-CoV-2 RNA in the sample which can be due to a variety of factors. Recollection is recommended in the case of an invalid result. CDC COVID-19 criteria for testing on human specimens and clinical management guidance information are available at the CDC Coronavirus Disease 2019 (COVID-19) webpage under Information for Healthcare Professionals (https://www.cdc.gov/coronavirus/2019-ncov/hcp/index.html). Additional information about this and other EUA tests can be found in provider and patient fact sheets at the following FDA website: https://www.fda.gov/medical-devices/jfrsrkokvym-strclgy-5733-rzjhv-11-wqpjtwian- wui-xknwuimurhwmkh-vzuddkp-devices/qdcja-mqupourqnfk-usoh SARS-CoV-2 Source ULTRASOUND SPEC Swab Pertinent radiology/diagnostic studies: ASSESSMENT/PLAN: Luis Manuel Mobley Jr. is a 61 y.o. 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 now day + 7 (day 0 is 10/22) for MUD HSCT. Patient has been afebrile for the last several days. Infectious workup remains negative. Tolerated stem cell infusion well on 10/22, had some rigors and nausea post-infusion that resolved with medications. Counts dropping as expected. Continue cefepime due to high risk of infection given HSCT status. Patient's high ostomy output (2-3L per day) improved with scheduled imodium. However, Cr (likely pre-renal) continues to worsen today, will start mIVF. Patient is developing worsening heartburn, may be related to mucositis, currently has tums, carafate, maalox, and bid protonix. Will add famotidine and continue to monitor for signs of mucositis. For his bilateral feet neuropathy, will continue gabapentin to 200mg TID. Summary Plan: - ostomy output decreasing, monitor Cr - Zarxio support to start on Day +7 until ANC >1500 - continue gabapentin to 200mg TID - continue cefepime until ANC >500 - monitor I/O and daily weights - start famotidine - decrease tac to 2.5mg AM and 2mg PM - tacrolimus level Thursday and ?? Plan: #STACIE, pre-renal - pre-renal, noted on 10/27 - s/p 1L Bolus on 10/27 and 10/28, encourage imodium to thicken ostomy output - continue to monitor #AML #MUD HSCT Day (-7): Fludarabine: Day (-6): Fludarabine, Busulfan, Rabbit ATG: Day (-5): Fludarabine, Busulfan, Rabbit ATG: Day (-4): Fludarabine, Busulfan, Rabbit ATG: Day (-3): Fludarabine, Busulfan: Day (0): Stem Cell Infusion: Day (+1): metHOTREXate: Day (+3): metHOTREXate: Day (+6): metHOTREXate: Day (+11): metHOTREXate: General - q4h vitals - strict Is/Os 2x daily - weigh patient 2x daily, notify provider if weight increases by 1kg or more in 12 hour period ?- lasix 20mg IV prn weight gain >1 kg above admission baseline ?- lasix 20mg IV for weight gain 1 kg over 12 hours or input exceeding output by greater than 1,000 ml/12h - neutropenic precautions - incentive spirometry q2h while awake - activity as tolerated - electrolyte replacement Chemotherapy/Support - Busulfan 204mg??day (-6) to day (-3) -??Fludarabine??61??mg 102ml infusion once over 30 minutes day -7 Then every 24 hours at 0900 for 4 doses day (-6) to day (-3) - Rabbit ATG??124.8mg over 10 hours day (-6), 166.4mg on day (-5) 208??on day (-4).?? - Day 0 stem cell infusion. Premedicate with acetaminophen 650mg, diphenhydramine 50mg) - Methotrexate??10mg??day (+1), day (+3), day (+6), day (+11). Hold for serum creatinine >2, bilirubin >5, fluid accumulation (large effusion or ascites), severe mucositis if potential need for intubation. - filgrastim??600mcg qd starting day (+7) until ANC >1500 ?? Laboratory Monitoring - weekly CMV PCR starting day +10, then weekly thereafter - IgG every 2 weeks starting day +1 to day +100 - U/A s/ reflex culture on admission, then daily on days -2, -1, 0? Transfusion parameters - Hgb <??6.5 - PLT <10, or if febrile??or bleeding??<20 - keep active T&S once hgb <8 ?? Prophylaxis Seizure ppx ?-phenytoin 300 day (-6) through (-1) - GI ppx ?- pantoprazole 40mg qd - mucositis ppx ?- supersaturated calcium phosphate oral solution 30ml 4x daily starting on admission until resolution of mucositis and ANC ?>500 - infection ppx ?- fluconazole 400mg qd starting day (0) ?- levofloxacin 750mg qd starting day (0) until ANC >500, changed tocefepime due to fever on 10/19 ?- acyclovir 800mg bid starting day (-7) ?- bactrim DS 1 tablet daily from day (-7) through day (-2) ?- bactrim DS 1 tablet MWF starting day (+30) - GVHD ppx?-??Tacrolimus??2.5mg BID??starting day (- 2)?target 5-10 trough - VOD ppx ?- lovenox 40mg qd day (-7) through (+30) per Dr. Modi's note, he should continue lovenox 100mg qd until plt apx <40 then switch to VOD ppx dose. ?- ursodiol 300mg qAM??&??qPM day (-7) through day (+30) Hydration - NaCl 0.9% continuous??150ml/hr x??day (-6) ??Through (-3) ?? Pain/Nausea/Appetite - avoid acetaminophen through??day??(-3) - avoid steroid antiemetics - palonosetron 0.25mg day (-6) - aprepitant 130mg day (-6) prior to??busulfan - lorazepam 0.5mg IV q4h prn nausea, anxiety - ondansetron??8mg q8h prn nausea, vomiting beginning day (-3) - prochlorperazine 10mg IV q6h prn nausea, vomiting - use ondansetron >??prochlorperazine or promethazine >??lorazepam >??metoclopramide - olanzapine 5mg qhs starting day (-3) for 5 doses? #Fever, resolved - 102.9 10/19 - C. Diff negative - UA unremarkable - BCx 10/20 negative - starting cefepime 10/19 - p - start vanc 10/20 - 10/22 #Paroxysmal Afib - Continue home metoprolol (convert to tartrate), flecainide ?? #Hx of provoked PE in Apr 2021 - On lovenox 100mg qd (held prior to central line placement) - Continue until plt reach approximately 40 followed by switch to prophylactic dosing. ?? #Hx of C diff colitis - Continue home PO vancomycin - Ostomy care #Bilateral Feet tingling - pt reports having baseline bilateral feet tingling that was noted to be worsened on on 10/21 (2 daysafter completing 5 days of fludarabine), strength intact, no loss of sensation - start gabapentin 100mg TID (10/21 - 10/23), 200mg TID (10/23 - p) #GERD - takes protonix at home - current regimen: protonix bid, carafate, tums, famotidine ?? #Routine DVT PPx: VOD ppx lovenox 40mg b/c platelet < 40 (holding home dose 100mg) Diet: Neutropenic (BMT) diet Dispo: [place] CODE STATUS: Attempt Cardiopulmonary Resuscitation - Inpatient Stacy Marin MD PGY1 Internal Medicine 10/29/2021 Heme/Onc/BMT Team A Pager #[phone] Associated attestation - Urban Dos Santos MD - 10/29/2021 7:51 PM EDT BMT/Hematology Inpatient Staff Shared Addendum I have reviewed the above housestaff note and have participated in the direct care of this patient. I have discussed the case in detail with the team, reviewed all data and was directly involved in formulation of the patients clinical plan. Luis Manuel Mobley Jr. is a 61 y.o.male with high-risk (FLT3+) AML adm???d on 10/15 for CXG-Whcv-PGY via Flu/Bu/ATG regimen. Pretransplant course marked by dev't of C difficile colitis with toxic megacolon requiring erb-merbs-topmhixbu, with ostomy, then dev't of 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 Patient Vitals for the past 168 hrs: Weight 10/29/21 0338 100.4 kg (221 lb 5.5 oz) 10/28/21 1727 101.3 kg (223 lb 5.2 oz) 10/28/21 0558 100.1 kg (220 lb 10.9 oz) 10/27/21 1538 101.7 kg (224 lb 3.3 oz) 10/27/21 0524 100.4 kg (221 lb 5.5 oz) 10/26/21 1659 101.2 kg (223 lb 1.7 oz) 10/26/21 0339 101.5 kg (223 lb 12.3 oz) 10/25/21 1829 102.3 kg (225 lb 8.5 oz) 10/25/21 0240 102.9 kg (226 lb 13.7 oz) 10/24/21 1532 103.5 kg (228 lb 2.8 oz) 10/24/21 0316 104.3 kg (229 lb 15 oz) 10/23/21 1531 105.6 kg (232 lb 12.9 oz) 10/23/21 0410 106.5 kg (234 lb 12.6 oz) 10/22/21 1627 107.3 kg (236 lb 8.9 oz) Continue hydration support with continuous IV. Day +7 today Heme Zarxio support to start on Day +7 Mucositis manageable. ID Acyclovir and fluconazole ppx Cefepime for previous neutropenic fever On oral Vanc ppx GVHD 10/28 level 9.4. Tacrolimus now 2mg BID Started on Day -2 GI Course complicated by diarrhea from ostomy Output increased over last few days. Continue continuous hydration C diff negative--> started imodium Wound care used silver nitrate on a small bleeder yesterday. VOD ppx Ursodiol and lovenox Lines: Minimal tenderness. DVT/PE: Hold lovenox for platelets <10. Overall doing ok. Will watch the mucositis and renal function. Urban Dos Santos MD Staff Physician [facility] Radha Marmolejo RN - 10/29/2021 6:05 AM EDT Patient Summary Reason for admission: Day +7 (10/29) of MUD alloSCT for AML conditioned with Flu/Bu/ATG/MTX Relevant PMH: s/p bowel resection/colectomy d/t toxic megacolon, Cdiff, Bilateral PE, hx paroxysmal AFIB Significant 24 hour events: 10/29 PM Ostomy output decreased and thicker with scheduled immodium. Did not require repletion or transfusions. TUMS x 1 for heartburn. No acute events overnight. 10/28 AM: [place] level drawn this am- 9.4. Post-platelet check up to 29-Lovenox given. Central line slightly reddened at exit [id number]-lhv-[id number] to palpation. Received Day +6 MTX without issue today. OstomyRN saw patient today-see note for additional information. Stool heme positive. C. diff sent, negative. Is now on TID Imodium. Given Maalox x 1 for heartburn. Zofran given x 1 for nausea. Continues withR buccal mucosa lesion, non-tender. Received 1 L LR bolus today. Weight up this evening, no Lasix given per discussion with MD-patient asymptomatic. Chemo plan & supportive medication: Fludarabine/ Busulfan/ATG/MTX Baseline Weight: 107.1 kg AM weight: 100.1 kg PM weight: 100.4 kg Action List MTX Day +11 Monitor for mucositis Ostomy care, monitor output - TID imodium Continue IV antibiotics - cefepime, PO Vanco Julianne Graham, RN - 10/28/2021 9:24 PM EDT Illness Severity [x] Stable [] Watcher [] Unstable Patient Summary Reason for admission: Day +6 (10/28) of MUD alloSCT for AML conditioned with Flu/Bu/ATG/MTX Relevant PMH: s/p bowel resection/colectomy d/t toxic megacolon, Cdiff, Bilateral PE, hx paroxysmal AFIB Significant 24 hour events: 10/28 AM: Tacro level drawn this am- 9.4. Post-platelet check up to 29-Lovenox given. Central line slightly reddened at exit [id number]-kzr-[id number] to palpation. Received Day +6 MTX without issue today. OstomyRN saw patient today-see note for additional information. Stool heme positive. C. diff sent, negative. Is now on TID Imodium. Given Maalox x 1 for heartburn. Zofran given x 1 for nausea. Continues withR buccal mucosa lesion, non-tender. Received 1 L LR bolus today. Weight up this evening, no Lasix given per discussion with MD-patient asymptomatic. 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 He declined to work with PT this evening. staff air tactical officer aware of his status and addressing his needs. PT will follow up tomorrow for PT evaluation as appropriate. Roderick Jones, PT Beeper# [id number] Caridad Patricia - 10/28/2021 10:49 AM EDT Nutrition Progress Note Luis Manuel Mobley Jr. is a 61 y.o. 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 Reason for intervention: Follow up Nutrition Recommendations: BMT diet Encourage good po intake Monitor ileostomy output - encourage foods to decrease output Monitor wt - trend Monitor lytes - replete as indicated Active Orders Diet Neutropenic (BMT) diet Frequency: Effective Now Number of Occurrences: Until Specified Order Comments: No grapefruit products Lab Results Component Value Date NA 136 10/28/2021 K 5.0 10/28/2021 CL 114 (H) 10/28/2021 CO2 11 (L) 10/28/2021 BUN 57 (H) 10/28/2021 CREATININE 1.52 (H) 10/28/2021 ESTGFR 49 (L) 10/28/2021 MAGNESIUM 0.79 10/28/2021 CALCIUM 9.4 10/28/2021 PHOS 4.7 (H) 10/28/2021 AST 26 10/28/2021 ALT 65 (H) 10/28/2021 ALKPHOS 104 10/28/2021 BILITOT 0.3 10/28/2021 BILIDIR 0.1 10/28/2021 TRIG 171 07/13/2021 HA1C 4.8 07/13/2021 [id number] 1,799 (H) 08/01/2021 SFOLATE 5.6 08/01/2021 IRON [...] IV sites Other Sites: ostomy Relevant medications: acyclovir, methotrexate, protonix, bactrim, caphosol, prograf Last Bowel Movement: 10/28/21 Admit Weight: 107.1 kg Estimated body mass index is 31.95 kg/m?? as calculated from the following: Height as of this encounter: 177 cm (5' 9.69). Weight as of this encounter: 100.1 kg (220 lb 10.9 oz). Anton Body Weight: 74.6 kg Usual Body Weight: 235 lbs per pt Weight loss, 6.4% loss since admission, clinically significant Wt Readings from Last 10 Encounters: 10/28/21 100.1 kg (220 lb 10.9 oz) 10/15/21 107.8 kg (237 lb 9.6 oz) 10/04/21 107.2 kg (236 lb 6.4 oz) 09/27/21 109 kg (240 lb 6.4 oz) 09/16/21 105.9 kg (233 lb 6.4 oz) 09/12/21 106.6 kg (235 lb) 09/09/21 102.8 kg (226 lb 9.6 oz) 09/05/21 106.8 kg (235 lb 6.4 oz) 08/26/21 102.8 kg (226 lb 9.6 oz) 08/19/21 100.2 kg (221 lb) Patient Vitals for the past 168 hrs: Weight 10/28/21 0558 100.1 kg (220 lb 10.9 oz) 10/27/21 1538 101.7 kg (224 lb 3.3 oz) 10/27/21 0524 100.4 kg (221 lb 5.5 oz) 10/26/21 1659 101.2 kg (223 lb 1.7 oz) 10/26/21 0339 101.5 kg (223 lb 12.3 oz) 10/25/21 1829 102.3 kg (225 lb 8.5 oz) 10/25/21 0240 102.9 kg (226 lb 13.7 oz) 10/24/21 1532 103.5 kg (228 lb 2.8 oz) 10/24/21 0316 104.3 kg (229 lb 15 oz) 10/23/21 1531 105.6 kg (232 lb 12.9 oz) 10/23/21 0410 106.5 kg (234 lb 12.6 oz) 10/22/21 1627 107.3 kg (236 lb 8.9 oz) 10/22/21 0314 105.3 kg (232 lb 2.3 oz) 10/21/21 1508 106.1 kg (233 lb 14.5 oz) Assessment: Estimated needs: Calories: 1865 (25 kcal/kg IBW) Protein: 89-112 grams (1.2-1.5 g/kg IBW) Nutrition Focused Physical Exam (NFPE): Performed on 10/28/21. Subcutaneous fat loss at Orbital region: None present Upper arm region (triceps/biceps): None present Thoracic and lumbar region (ribs, lower back and maxillary line): Not assessed Lean muscle loss to Orthodoxy region (temporalis muscle): None present Clavicle bone region (pectoralis major): None present Dorsal hand (interosseous muscle): None present Shoulder (deltoid): None present Scapular bone region (latissimus dorsi, trapezius muscles): Not assessed Thigh region (quadriceps muscle): None present Posterior calf region (gastrocnemius muscle): None present Fluid accumulation: Not assessed Nutrition intake and intake history/Interview: Visited Luis Manuel at bedside today. He reports his appetite remains poor due to experiencing acid reflux during and after eating. He states he's making an effort to eat, had an egg, bagel and milk for breakfast. He requested his snacks be changed to once a dayin the afternoon since his appetite has been poor, he feels like the food is going to waste. He doesconsume the banana provided as a snack to decrease ileostomy output. Will be receiving Protonix 2x/day moving forward, in the morning and afternoon which will hopefully settle symptoms and improve po intake. Wt still trending down, will continue to monitor. 10/24: Luis Manuel reported a decrease in his appetite since infusion. He is not experiencing nausea, abdominal pain, or mouth soreness. Encouraged patient to try a little of each meal to improve po intake. Patient agreeable to adding fruit and blueberry spanish yogurt as snacks 2/day to meal plan. Wt is continuing to trend down, will continue to monitor. 10/21: Luis Manuel reported an improved appetite today, he reported over the weekend he felt fatigued and hada minimal appetite. He reported no po intake on Thursday and only ate mashed potatoes yesterday for dinner. Today, he ate 100% of breakfast (eggs, yogurt, and a v8) and almost 100% of lunch (soup and awrap). Pt w/snacks at bedside from visitors, declined additional snacks at this time. Encouraged good po intake. Wt trending down, below reported UBW, continue to monitor. 10/17: Luis Manuel reported a good appetite today and captain room service, remote mortgage underwriter ordered breakfast for pt. He normally eats 3 meals/day or has small, frequent meals. Reported no recent wt loss, had lost wt on previous admits and has been able to regain some wt. Declined snacks at this time. He doesn't consistently track ileostomy output at home but is familiar with foods to thicken output and his familiar w/diet. Pt reported he has Food Safety for People with Cancer booklet, reviewed higher/lower risk foods with pt, no questions at this time. Protein-calorie Malnutrition: Not identified (RAFA Barnes J Parenteral Enteral Nutr. 2011;36(3): 273-83) Nutrition to continue to follow up while inpatient Thank you, Caridad Patricia Stacy Marin MD - 10/28/2021 7:32 AM EDT Images from the original note were not included. Inpatient Hematology/Oncology/SCT Progress Note Patient info: Name: Luis Manuel Mobley Jr. : 1960 PCP: LEISA Munguia PCP phone number: [phone] Date of Admission: 10/15/2021 ( Hospital Day 13 days ) Service: Hem/Onc Team A pg [id number] (09/03) Responsible Attending:Urban Dos Santos MD ID: Luis Manuel Mobley Jr. is a 61 y.o. 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 24 Hour Events: - Yesterday, noted to have pre-renal STACIE (high ostomy output, start imodium), got 1L bolus, reflux (tumx, sucralfate, protonix bid), got platelets - Overnight, got a unit of platelet, hiccups and acid reflux, got carafate, heme occult stool + - This AM, reporting worsening heartburn and hiccups, trying to eat at least 50% of meals - Weight:100.4kg -> 100.1kg - In/Outs: net neg 1L (stool 2.1L + 1 unmeasured) Vitals: Last value Range last 24 hrs Temperature Temp: 36 ??C (96.8 ??F) Temp: [36 ??C (96.8 ??F)-36.8 ??C (98.2 ??F)] Heart Rate Heart Rate: 64 Heart Rate: [63-81] Blood Pressure BP: 114/77 BP: (107-142)/(72-94) Respiratory Rate Resp: 16 Resp: [16-18] SpO2 SpO2: 100 % SpO2: [95 %-100 %] Intake/Output Summary (Last 24 hours) at 10/28/2021 0732 Last data filed at 10/28/2021 0700 Gross per 24 hour Intake 2078.33 ml Output 3125 ml Net -1046.67 ml Patient Vitals for the past 168 hrs: Weight 10/28/21 0558 100.1 kg (220 lb 10.9 oz) 10/27/21 1538 101.7 kg (224 lb 3.3 oz) 10/27/21 0524 100.4 kg (221 lb 5.5 oz) 10/26/21 1659 101.2 kg (223 lb 1.7 oz) 10/26/21 0339 101.5 kg (223 lb 12.3 oz) 10/25/21 1829 102.3 kg (225 lb 8.5 oz) 10/25/21 0240 102.9 kg (226 lb 13.7 oz) 10/24/21 1532 103.5 kg (228 lb 2.8 oz) 10/24/21 0316 104.3 kg (229 lb 15 oz) 10/23/21 1531 105.6 kg (232 lb 12.9 oz) 10/23/21 0410 106.5 kg (234 lb 12.6 oz) 10/22/21 1627 107.3 kg (236 lb 8.9 oz) 10/22/21 0314 105.3 kg (232 lb 2.3 oz) 10/21/21 1508 106.1 kg (233 lb 14.5 oz) Exam: GENERAL:?appeared in no acute distress, eating breakfast in bed MOUTH: red lesion noted inside cheek, no bleeding or pain noted CARDIOVASCULAR:??rrr no mrg PULMONARY:??CTAB on RA, no increased wob GASTROINTESTINAL:??Abdomen soft nontender to palpation w +BS. Colostomy with brown watery stool in place. SKIN:??No rashes, bruises or petechiae. ?? EXT: no Edema at ankles NEUROLOGICAL:??Alert and oriented to person, place and time. No focal deficits Medications: Scheduled Meds: ??? pantoprazole EC 40 mg Oral BID ??? enoxaparin 40 mg Subcutaneous Daily ??? gabapentin 200 mg Oral TID ??? ceFEPime 2 g Intravenous Q8H ??? sodium chloride 0.9 % (flush) 5 mL Intravenous BID ??? metoprolol tartrate 12.5 mg Oral Q6H PIERCE ??? vancomycin 125 mg Oral BID ??? flecainide 50 mg Oral BID ??? supersaturated calcium phosphate 30 mL Oral 4 Times Daily ??? fluconazole 400 mg Oral Daily ??? acyclovir 800 mg Oral BID ??? [START ON 11/21/2021] sulfamethoxazole-trimethoprim DS 1 tablet Oral Daily ??? tacrolimus 0.03 mg/kg/dose (Treatment Plan Adjusted) Oral 2 times per day ??? ursodioL 300 mg Oral Daily with breakfast ??? ursodioL 600 mg Oral Daily with dinner ??? metHOTREXate (PF) 5 mg/m2/dose (Treatment Plan Adjusted) Intravenous Once ??? [START ON 11/02/2021] metHOTREXate (PF) 5 mg/m2/dose (Treatment Plan Adjusted) Intravenous Once ??? [START ON 10/29/2021] filgrastim-sndz 600 mcg Subcutaneous Daily Continuous Infusions: PRN Meds:.calcium carbonate, sucralfate, loperamide, furosemide, furosemide, sodium chloride 0.9 % (flush), lidocaine, LORazepam, ondansetron, prochlorperazine, potassium chloride ER, potassium chloride ER, potassium chloride, magnesium sulfate, magnesium sulfate, potassium phosphate, potassium phosphate, heparin, porcine, sodium chloride 0.9 % (flush) Labs: Recent Labs 10/28/2144410/27/21 1250 10/27/21 0530 10/26/21 0325 10/25/21 0254 WBC 0.1* -- 0.4* 0.6* 1.0* HGB 7.9* -- 8.6* 8.1* 7.4* HCT 22.3* -- 25.0* 22.9* 21.0* PLATELET 10* 22* 10* 16* 21* NEUTROABS -- -- 0.39* 0.53* 0.95* ANC pending today (0.39 yesterday) Counts dropping as expected Recent Labs 10/28/2144410/27/21 0530 10/26/21 0325 NA 136 136 137 K 5.0 5.2* 4.7 CL 114* 110* 113* CO2 11* 13* 13* BUN 57* 54* 36* CREATININE 1.52* 1.49 1.07 Recent Labs 10/28/215 10/27/21 0530 10/26/21 0325 CALCIUM 9.4 9.8 9.0 MAGNESIUM 0.79 1.00 0.67* PHOS 4.7* 4.6* 4.0 Recent Labs 10/28/21 0445 10/25/21 0254 10/24/21 0316 AST 26 19 16 ALT 65* 28 28 ALKPHOS 104 68 70 BILITOT 0.3 0.3 0.3 BILIDIR 0.1 0.1 0.1 No results for input(s): INR, PT, PTT in the last 72 hours. Microbiology: BCx 10/20: NGTD UA 10/20: does not look infectious Microbiology Results (Last 30 days) Procedure Component Value Units Date/Time Blood culture [[id number]] Collected: 10/20/211731 Lab Status: Final result Specimen: Blood Updated: 10/25/21 2301 Blood Culture No growth at 5 days. Blood culture [[id number]] Collected: 10/20/211731 Lab Status: Final result Specimen: Blood Updated: 10/25/21 2301 Blood Culture No growth at 5 days. Blood culture [[id number]] Collected: 10/19/21 1139 Lab Status: Final result Specimen: Blood from Antecubital, Left Updated: 10/24/21 1501 Blood Culture No growth at 5 days. Blood culture [[id number]] (Abnormal) Collected: 10/19/21 1133 Lab Status: Final result Specimen: Blood from Hand, Right Updated: 10/25/21 0910 Blood Culture -- Coagulase negative Staphylococcus species detected by PCR Interpretation of the importance of skin mitzy such as Coagulase Negative Staph, Viridans Strep, Corynebacteria and other Gram Positive organisms from a single Blood Culture set requires clinical correlation. Gram Stain Aerobic -- Growth detected in aerobic bottle. Gram Positive Cocci in clusters seen C. Difficile Screen [[id number]] Collected: 10/19/21 1020 Lab Status: Final result Specimen: Stool Updated: 10/19/21 1607 C Diff Screen Negative Comment: Ag/Tox Neg C. diff?? Negative Clostridium difficile is not present in the specimen. If patient is having diarrhea suspected to be from an infectious cause, then Soap & Water Contact Precautions are still required. COVID-19 PCR [[id number]] Collected: 10/19/21 0405 Lab Status: Final result Specimen: Nasopharyngeal Swab Updated: 10/19/21 1834 SARS-CoV-2 RNA Not Detected Comment: This result should be interpreted in combination with the clinical observations, patient history and epidemiological information in making a final diagnosis. For testing of asymptomatic individuals, assay performance characteristics and clinical utility have not been evaluated. Testing for SARS-CoV-2 (Severe acute respiratory syndrome coronavirus 2, formerly known as 2019 novel coronavirus or 2019-nCoV) to aid in the diagnosis of COVID-19 is performed using the [employer] m SARS-CoV-2 Assay as authorized by the FDA Emergency Use Authorization (EUA). This EUA assay is intended for In-vitro Diagnostic (IVD) use with respiratory specimens such as nasopharyngeal swabs collected from individuals during the acute phase of infection. This assay is performed based on the instructions for use provided by [employer] and additional guidance provided by CDC and FDA. Testing is performed in the [facility] within the Department of Pathology and Laboratory Medicine at [facility], certified under the Clinical Laboratory Improvement Amendments of 1988 (CLIA), 42 U.S.C. 263a, to perform high complexity tests. Assay performance has been verified according to clinical laboratory regulatory requirements for use with specimens collected from individuals suspected of COVID-19. Test results are provided above. A result of Not Detected indicates that the viral RNA target is not present above the limit of detection, but does not preclude SARS-CoV-2 infection. False negative results may occur if a specimen is improperly collected, transported or handled; if amplification inhibitors are present; or if inadequate numbers of viral particles are present in the specimen. When a diagnostic test is negative, the possibility of a false negative result should be considered in the context of a patient's recent exposures and the presence of clinical signs and symptoms consistent with COVID-19. A result of Detected indicates that RNA from SARS-CoV-2 was detected and the patient is infected. As required or requested by public health authorities, positive specimens may be sent for additional testing. Positive and negative predictive values for this test are highly dependent on disease prevalence. A result of Invalid indicates that neither the viral RNA targets nor the internal control target was detected. An invalid result suggests the presence of inhibitors. Recollection and re-testing is recommended in the case of an invalid result. CDC COVID-19 criteria for testing on human specimens and clinical management guidance information are available at the CDC Coronavirus Disease 2019 (COVID-19) webpage under Information for Healthcare Professionals (https://www.cdc.gov/coronavirus/2019-ncov/hcp/index.html) Additional information about this and other EUA tests can be found in provider and patient fact sheets at the following FDA website: https://www.fda.gov/medical-devices/ieygksgjfcv-nijocsi-7873-snfau-63-drlatjolf- koj-lgtxiszjrbrwzg-ugtlwlv-devices/aisrw-olpplccyehw-ihgf SARS-Cov-2 RNA Source ULTRASOUND SPEC Swab COVID-19 PCR [[id number]] Collected: 10/15/212032 Lab Status: Final result Specimen: Nasopharyngeal Swab Updated: 10/16/21 0004 SARS-CoV-2 RNA PCR Not Detected Comment: This result should be interpreted in combination with the clinical observations, patient history and epidemiological information. For testing of asymptomatic individuals, assay performance characteristics and clinical utility have not been evaluated. Testing for SARS-CoV-2 (Severe acute respiratory syndrome coronavirus 2, formerly known as 2019 novel coronavirus or 2019-nCoV) to aid in the diagnosis of COVID-19 is performed using the [employer] COVID-19 Direct Assay by [employer] as authorized by the FDA issued Emergency Use Authorization (EUA). This assay is intended for In-vitro Diagnostic (IVD) use with nasopharyngeal swabs collected from individuals meeting the CDC criteria for testing. The assay is performed based on the instructions for use and additional guidance provided by the FDA. Testing is performed in the Microbiology Laboratory within the Department of Pathology and Laboratory Medicine at [facility], certified under the Clinical Laboratory Improvement Amendments of 1988 (CLIA), 42 U.S.C. section 263a, to perform high complexity tests. Assay performance has been verified according to clinical laboratory regulatory requirements. Test results are provided above. A result of Not Detected indicates that the viral RNA target is not present but does not preclude SARS-CoV-2 infection. False negative results may occur if a specimen is improperly collected, transported or handled; if amplification inhibitors are present; or if inadequate numbers of viral particles are present in the specimen. A result of Detected suggests a current or recent infection and the patient is presumed to be infected. Positive and negative predictive values for this test are highly dependent on disease prevalence. A result of Invalid indicates the inability to conclusively determine the presence or absence of SARS-CoV-2 RNA in the sample which can be due to a variety of factors. Recollection is recommended in the case of an invalid result. CDC COVID-19 criteria for testing on human specimens and clinical management guidance information are available at the CDC Coronavirus Disease 2019 (COVID-19) webpage under Information for Healthcare Professionals (https://www.cdc.gov/coronavirus/2019-ncov/hcp/index.html). Additional information about this and other EUA tests can be found in provider and patient fact sheets at the following FDA website: https://www.fda.gov/medical-devices/zscqkritviy-mzqmxhw-0237-mquxf-94-fduvdqpfj- fvu-zmnpuohxfnzeqg-psaydes-devices/gaaac-wblcldluzov-rpkn SARS-CoV-2 Source ULTRASOUND SPEC Swab Pertinent radiology/diagnostic studies: ASSESSMENT/PLAN: Luis Manuel Mobley Jr. is a 61 y.o. 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 now day + 6 (day 0 is 10/22) for MUD HSCT. Patient has been afebrile for the last several days. Infectious workup remains negative. Tolerated stem cell infusion well on 10/22, had some rigors and nausea post-infusion that resolved with medications. Counts dropping as expected. Continue cefepime due to high risk of infection given HSCT status. Patient continues to high ostomy output (2-3L per day). STACIE, likely pre-renal, worsening today. Willgive another L of bolus and consider mIVF for pt to stay hydrated. Will have imodium prn. Patient is developing worsening heartburn, may be related to mucositis, currently has tums, carafate, and bid protonix. Will continue to monitor for signs of mucositis. For his bilateral feet neuropathy, will continue gabapentin to 200mg TID. Summary Plan: - monitor Cr - Zarxio support to start on Day +7 until ANC >1500 - continue gabapentin to 200mg TID - continue cefepime - monitor I/O and daily weights - monitor ostomy output - 1L bolus, may need mIVF ?? Plan: #STACIE, pre-renal - pre-renal, noted on 10/27 - s/p 1L Bolus on 10/27 and 10/28, encourage imodium to thicken ostomy output - continue to monitor #AML #MUD HSCT Day (-7): Fludarabine: Day (-6): Fludarabine, Busulfan, Rabbit ATG: Day (-5): Fludarabine, Busulfan, Rabbit ATG: Day (-4): Fludarabine, Busulfan, Rabbit ATG: Day (-3): Fludarabine, Busulfan: Day (0): Stem Cell Infusion: Day (+1): metHOTREXate: Day (+3): metHOTREXate: Day (+6): metHOTREXate: Day (+11): metHOTREXate: General - q4h vitals - strict Is/Os 2x daily - weigh patient 2x daily, notify provider if weight increases by 1kg or more in 12 hour period ?- lasix 20mg IV prn weight gain >1 kg above admission baseline ?- lasix 20mg IV for weight gain 1 kg over 12 hours or input exceeding output by greater than 1,000 ml/12h - neutropenic precautions - incentive spirometry q2h while awake - activity as tolerated - electrolyte replacement Chemotherapy/Support - Busulfan 204mg??day (-6) to day (-3) -??Fludarabine??61??mg 102ml infusion once over 30 minutes day -7 Then every 24 hours at 0900 for 4 doses day (-6) to day (-3) - Rabbit ATG??124.8mg over 10 hours day (-6), 166.4mg on day (-5) 208??on day (-4).?? - Day 0 stem cell infusion. Premedicate with acetaminophen 650mg, diphenhydramine 50mg) - Methotrexate??10mg??day (+1), day (+3), day (+6), day (+11). Hold for serum creatinine >2, bilirubin >5, fluid accumulation (large effusion or ascites), severe mucositis if potential need for intubation. - filgrastim??600mcg qd starting day (+7) until ANC >1500 ?? Laboratory Monitoring - weekly CMV PCR starting day +10, then weekly thereafter - IgG every 2 weeks starting day +1 to day +100 - U/A s/ reflex culture on admission, then daily on days -2, -1, 0? Transfusion parameters - Hgb <??6.5 - PLT <10, or if febrile??or bleeding??<20 - keep active T&S once hgb <8 ?? Prophylaxis Seizure ppx ?-phenytoin 300 day (-6) through (-1) - GI ppx ?- pantoprazole 40mg qd - mucositis ppx ?- supersaturated calcium phosphate oral solution 30ml 4x daily starting on admission until resolution of mucositis and ANC ?>500 - infection ppx ?- fluconazole 400mg qd starting day (0) ?- levofloxacin 750mg qd starting day (0) until ANC >500, changed tocefepime due to fever on 10/19 ?- acyclovir 800mg bid starting day (-7) ?- bactrim DS 1 tablet daily from day (-7) through day (-2) ?- bactrim DS 1 tablet MWF starting day (+30) - GVHD ppx?-??Tacrolimus??2.5mg BID??starting day (- 2)?target 5-10 trough - VOD ppx ?- lovenox 40mg qd day (-7) through (+30) per Dr. Modi's note, he should continue lovenox 100mg qd until plt apx <40 then switch to VOD ppx dose. ?- ursodiol 300mg qAM??&??qPM day (-7) through day (+30) Hydration - NaCl 0.9% continuous??150ml/hr x??day (-6) ??Through (-3) ?? Pain/Nausea/Appetite - avoid acetaminophen through??day??(-3) - avoid steroid antiemetics - palonosetron 0.25mg day (-6) - aprepitant 130mg day (-6) prior to??busulfan - lorazepam 0.5mg IV q4h prn nausea, anxiety - ondansetron??8mg q8h prn nausea, vomiting beginning day (-3) - prochlorperazine 10mg IV q6h prn nausea, vomiting - use ondansetron >??prochlorperazine or promethazine >??lorazepam >??metoclopramide - olanzapine 5mg qhs starting day (-3) for 5 doses? #Fever, resolved - 102.9 10/19 - C. Diff negative - UA unremarkable - BCx 10/20 negative - starting cefepime 10/19 - p - start vanc 10/20 - 10/22 #Paroxysmal Afib - Continue home metoprolol (convert to tartrate), flecainide ?? #Hx of provoked PE in Apr 2021 - On lovenox 100mg qd (held prior to central line placement) - Continue until plt reach approximately 40 followed by switch to prophylactic dosing. ?? #Hx of C diff colitis - Continue home PO vancomycin - Ostomy care #Bilateral Feet tingling - pt reports having baseline bilateral feet tingling that was noted to be worsened on on 10/21 (2 daysafter completing 5 days of fludarabine), strength intact, no loss of sensation - start gabapentin 100mg TID (10/21 - 10/23), 200mg TID (10/23 - p) ?? #Routine DVT PPx: VOD ppx lovenox 40mg b/c platelet < 40 (holding home dose 100mg) Diet: Neutropenic (BMT) diet Dispo: [place] CODE STATUS: Attempt Cardiopulmonary Resuscitation - Inpatient Stacy Marin MD PGY1 Internal Medicine 10/28/2021 Heme/Onc/BMT Team A Pager #[phone] Associated attestation - Urban Dos Santos MD - 10/28/2021 10:35 PM EDT BMT/Hematology Inpatient Staff Shared Addendum I have reviewed the above housestaff note and have participated in the direct care of this patient. I have discussed the case in detail with the team, reviewed all data and was directly involved in formulation of the patients clinical plan. Luis Manuel Mobley Jr. is a 61 y.o.male with high-risk (FLT3+) AML adm???d on 10/15 for HGN-Nsiq-HMM via Flu/Bu/ATG regimen. Pretransplant course marked by dev't of C difficile colitis with toxic megacolon requiring [id number], with ostomy, then dev't of 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 Day +6 today Heme Zarxio support to start on Day +7 Mucositis manageable. ID Acyclovir and fluconazole ppx Cefepime for previous neutropenic fever On oral Vanc ppx Repeat Cdiff toxin today GVHD Tacrolimus 2.5 mg BID Started on Day -2 GI Course complicated by diarrhea from ostomy Output increased over last few days. Hydration today If c diff negative, add imodium. VOD ppx Ursodiol and lovenox Urban Dos Santos MD Staff Physician [facility] Oxana Crump, RN - 10/28/2021 6:59 AM EDT Illness Severity [x] Stable [] Watcher [] Unstable Patient Summary Reason for admission: Day +6 (10/28) of MUD alloSCT for AML conditioned with Flu/Bu/ATG/MTX Relevant PMH: s/p bowel resection/colectomy d/t toxic megacolon, Cdiff, Bilateral PE, hx paroxysmal AFIB Significant 24 hour events: 10/27 PM: VSS at RA. Hiccups and acid reflux noted throughout shift. PRN Carafate given. Cha bag connected to ileostomy pouch for drainage overnight-see chart for output. Heme occult stool (+), MD notified. Unit of platelets given. Ostomy nurse consulted. MTX planned for 10/28. Patient resting with nocomplaints. Chemo plan & supportive medication: Fludarabine/ Busulfan/ATG/MTX Baseline Weight: 107.1 kg AM weight: 100.1 kg PM weight: 101.7 kg Action List MTX Days +6 (10/28), +11 Evaluate ostomy tomorrow by ostomy nurse Monitor for mucositis Ostomy care, monitor output - PRN imodium Continue IV antibiotics - cefepime Jamie Bartlett RN - 10/27/2021 5:51 PM EDT Patient Summary Reason for admission: Day +5 (10/27) of MUD alloSCT for AML conditioned with Flu/Bu/ATG/MTX Relevant PMH: s/p bowel resection/colectomy d/t toxic megacolon, Cdiff, Bilateral PE, hx paroxysmal AFIB Significant 24 hour events: 10/27 AM: Denies pain and nausea. Lesion in R cheek appearing stable. Mag replacement completed. Gave1 unit of platelets per orders, platelet recheck 22. Assisted with clearing his ostomy- took off thefoley attachment due to clogging. Stoma is reddened but non tender, unable to see the bleeding area of the skin since it is under the appliance (report to ostomy team for follow-up). Reported severe reflux, Tums given x2 with minimal effect-notified MD who put in higher Tums orders along with sucralfate PRN. Sucralfate administered x1 with some effect. Also has Protonix BID. Ambulated in the hallway with GF Chai and tolerated that well with minimal SOB. 1L NS bolus given this AM. Urine and stool heme negative. 10/26 PM: Given Tums x 1 for acid reflux complaint. Both urine and stool heme positive. Cha bag connected to ileostomy pouch for drainage overnight-total stool volume 675 mL. Scant amount blood noted at stoma. R inner cheek lesion present but patient denies tenderness. Chemo plan & supportive medication: Fludarabine/ Busulfan/ATG/MTX Baseline Weight: 107.1 kg AM weight: 100.4 kg PM weight: 101.7 kg Action List MTX Days +6 (10/28), +11 Evaluate ostomy tomorrow by ostomy nurse Monitor for mucositis Ostomy care, monitor output - PRN imodium Continue IV antibiotics - cefepime Chai Luna MD - 10/27/2021 7:50 AM EDT Images from the original note were not included. Inpatient Hematology/Oncology/SCT Progress Note Patient info: Name: Luis Manuel Mobley Jr. : 1960 PCP: LEISA Munguia PCP phone number: [phone] Date of Admission: 10/15/2021 ( Hospital Day 12 days ) Service: Hem/Onc Team A pg [id number] (09/03) Responsible Attending:Sona Freitas MD ID: Luis Manuel Mobley Jr. is a 61 y.o. 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 24 Hour Events: - NAEO - feeling little more tired tonight, no mouth pain, abdominal pain. Some heart burn that improves with Tums. Minimal appetite but getting some food in. - ostomy output thickening a little - no CP, SOB Vitals: Last value Range last 24 hrs Temperature Temp: 35.8 ??C (96.4 ??F) Temp: [35.8 ??C (96.4 ??F)-36.8 ??C (98.2 ??F)] Heart Rate Heart Rate: 75 Heart Rate: [75] Blood Pressure BP: 106/73 BP: (106-120)/(73-81) Respiratory Rate Resp: 20 Resp: [20-22] SpO2 SpO2: 100 % SpO2: [90 %-100 %] Intake/Output Summary (Last 24 hours) at 10/27/2021 0750 Last data filed at 10/27/2021 0534 Gross per 24 hour Intake 173 ml Output 3250 ml Net -3077 ml Patient Vitals for the past 168 hrs: Weight 10/27/21 0524 100.4 kg (221 lb 5.5 oz) 10/26/21 1659 101.2 kg (223 lb 1.7 oz) 10/26/21 0339 101.5 kg (223 lb 12.3 oz) 10/25/21 1829 102.3 kg (225 lb 8.5 oz) 10/25/21 0240 102.9 kg (226 lb 13.7 oz) 10/24/21 1532 103.5 kg (228 lb 2.8 oz) 10/24/21 0316 104.3 kg (229 lb 15 oz) 10/23/21 1531 105.6 kg (232 lb 12.9 oz) 10/23/21 0410 106.5 kg (234 lb 12.6 oz) 10/22/21 1627 107.3 kg (236 lb 8.9 oz) 10/22/21 0314 105.3 kg (232 lb 2.3 oz) 10/21/21 1508 106.1 kg (233 lb 14.5 oz) 10/21/21 0435 105 kg (231 lb 7.7 oz) 10/20/21 1653 105.4 kg (232 lb 5.8 oz) Exam: GENERAL:?appeared in no acute distress, playing solitary on ipad MOUTH: no ulcers noted CARDIOVASCULAR:??rrr no mrg PULMONARY:??CTAB on RA, no increased wob GASTROINTESTINAL:??Abdomen soft nontender to palpation w +BS. Colostomy with brown watery stool in place. SKIN:??No rashes, bruises or petechiae. ?? EXT: no Edema at ankles NEUROLOGICAL:??Alert and oriented to person, place and time. No focal deficits Medications: Scheduled Meds: ??? enoxaparin 40 mg Subcutaneous Daily ??? gabapentin 200 mg Oral TID ??? ceFEPime 2 g Intravenous Q8H ??? sodium chloride 0.9 % (flush) 5 mL Intravenous BID ??? metoprolol tartrate 12.5 mg Oral Q6H PIERCE ??? vancomycin 125 mg Oral BID ??? flecainide 50 mg Oral BID ??? pantoprazole EC 40 mg Oral Daily ??? supersaturated calcium phosphate 30 mL Oral 4 Times Daily ??? fluconazole 400 mg Oral Daily ??? acyclovir 800 mg Oral BID ??? [START ON 11/21/2021] sulfamethoxazole-trimethoprim DS 1 tablet Oral Daily ??? tacrolimus 0.03 mg/kg/dose (Treatment Plan Adjusted) Oral 2 times per day ??? ursodioL 300 mg Oral Daily with breakfast ??? ursodioL 600 mg Oral Daily with dinner ??? [START ON 10/28/2021] metHOTREXate (PF) 5 mg/m2/dose (Treatment Plan Adjusted) Intravenous Once ??? [START ON 11/02/2021] metHOTREXate (PF) 5 mg/m2/dose (Treatment Plan Adjusted) Intravenous Once ??? [START ON 10/29/2021] filgrastim-sndz 600 mcg Subcutaneous Daily Continuous Infusions: PRN Meds:.calcium carbonate, loperamide, furosemide, furosemide, sodium chloride 0.9 % (flush), lidocaine, LORazepam, ondansetron, prochlorperazine, potassium chloride ER, potassium chloride ER, potassium chloride, magnesium sulfate, magnesium sulfate, potassium phosphate, potassium phosphate, heparin, porcine, sodium chloride 0.9 % (flush) Labs: Recent Labs 10/27/21 0530 10/26/21 0325 10/25/21 0254 WBC 0.4* 0.6* 1.0* HGB 8.6* 8.1* 7.4* HCT 25.0* 22.9* 21.0* PLATELET 10* 16* 21* NEUTROABS 0.39* 0.53* 0.95* Recent Labs 10/27/21 0530 10/26/21 0325 10/25/21 0254 NA 136 137 140 K 5.2* 4.7 4.5 CL 110* 113* 113* CO2 13* 13* 15* BUN 54* 36* 30* CREATININE 1.49 1.07 1.22 Recent Labs 10/27/21 0530 10/26/21 0325 10/25/21 0254 CALCIUM 9.8 9.0 9.1 MAGNESIUM 1.00 0.67* 0.77 PHOS 4.6* 4.0 3.6 Recent Labs 10/25/21 0254 10/24/21 0316 10/23/21 0405 AST 19 16 21 ALT 28 28 22 ALKPHOS 68 70 68 BILITOT 0.3 0.3 0.3 BILIDIR 0.1 0.1 0.1 No results for input(s): INR, PT, PTT in the last 72 hours. Microbiology: BCx 10/20: NGTD UA 10/20: does not look infectious Microbiology Results (Last 30 days) Procedure Component Value Units Date/Time Blood culture [[id number]] Collected: 10/20/211731 Lab Status: Final result Specimen: Blood Updated: 10/25/21 2301 Blood Culture No growth at 5 days. Blood culture [[id number]] Collected: 10/20/21 173 Lab Status: Final result Specimen: Blood Updated: 10/25/21 2301 Blood Culture No growth at 5 days. Blood culture [[id number]] Collected: 10/19/21 1139 Lab Status: Final result Specimen: Blood from Antecubital, Left Updated: 10/24/21 1501 Blood Culture No growth at 5 days. Blood culture [[id number]] (Abnormal) Collected: 10/19/21 113 Lab Status: Final result Specimen: Blood from Hand, Right Updated: 10/25/21 0910 Blood Culture -- Coagulase negative Staphylococcus species detected by PCR Interpretation of the importance of skin mitzy such as Coagulase Negative Staph, Viridans Strep, Corynebacteria and other Gram Positive organisms from a single Blood Culture set requires clinical correlation. Gram Stain Aerobic -- Growth detected in aerobic bottle. Gram Positive Cocci in clusters seen C. Difficile Screen [[id number]] Collected: 10/19/21 1020 Lab Status: Final result Specimen: Stool Updated: 10/19/21 1607 C Diff Screen Negative Comment: Ag/Tox Neg C. diff?? Negative Clostridium difficile is not present in the specimen. If patient is having diarrhea suspected to be from an infectious cause, then Soap & Water Contact Precautions are still required. COVID-19 PCR [[id number]] Collected: 10/19/21 0405 Lab Status: Final result Specimen: Nasopharyngeal Swab Updated: 10/19/21 183 SARS-CoV-2 RNA Not Detected Comment: This result should be interpreted in combination with the clinical observations, patient history and epidemiological information in making a final diagnosis. For testing of asymptomatic individuals, assay performance characteristics and clinical utility have not been evaluated. Testing for SARS-CoV-2 (Severe acute respiratory syndrome coronavirus 2, formerly known as 2019 novel coronavirus or 2019-nCoV) to aid in the diagnosis of COVID-19 is performed using the [employer] m SARS-CoV-2 Assay as authorized by the FDA Emergency Use Authorization (EUA). This EUA assay is intended for In-vitro Diagnostic (IVD) use with respiratory specimens such as nasopharyngeal swabs collected from individuals during the acute phase of infection. This assay is performed based on the instructions for use provided by [employer] and additional guidance provided by CDC and FDA. Testing is performed in the [facility] within the Department of Pathology and Laboratory Medicine at [facility], certified under the Clinical Laboratory Improvement Amendments of 1988 (CLIA), 42 U.S.C. 263a, to perform high complexity tests. Assay performance has been verified according to clinical laboratory regulatory requirements for use with specimens collected from individuals suspected of COVID-19. Test results are provided above. A result of Not Detected indicates that the viral RNA target is not present above the limit of detection, but does not preclude SARS-CoV-2 infection. False negative results may occur if a specimen is improperly collected, transported or handled; if amplification inhibitors are present; or if inadequate numbers of viral particles are present in the specimen. When a diagnostic test is negative, the possibility of a false negative result should be considered in the context of a patient's recent exposures and the presence of clinical signs and symptoms consistent with COVID-19. A result of Detected indicates that RNA from SARS-CoV-2 was detected and the patient is infected. As required or requested by public health authorities, positive specimens may be sent for additional testing. Positive and negative predictive values for this test are highly dependent on disease prevalence. A result of Invalid indicates that neither the viral RNA targets nor the internal control target was detected. An invalid result suggests the presence of inhibitors. Recollection and re-testing is recommended in the case of an invalid result. CDC COVID-19 criteria for testing on human specimens and clinical management guidance information are available at the CDC Coronavirus Disease 2019 (COVID-19) webpage under Information for Healthcare Professionals (https://www.cdc.gov/coronavirus/2019-ncov/hcp/index.html) Additional information about this and other EUA tests can be found in provider and patient fact sheets at the following FDA website: https://www.fda.gov/medical-devices/idcueerxvno-tlpomrj-1855-tntar-31-amiqjlivr- olx-bvffidjgiblmwt-qqnaorj-devices/esayx-fwryndkxzoa-iyhi SARS-Cov-2 RNA Source ULTRASOUND SPEC Swab COVID-19 PCR [[id number]] Collected: 10/15/212032 Lab Status: Final result Specimen: Nasopharyngeal Swab Updated: 10/16/21 0004 SARS-CoV-2 RNA PCR Not Detected Comment: This result should be interpreted in combination with the clinical observations, patient history and epidemiological information. For testing of asymptomatic individuals, assay performance characteristics and clinical utility have not been evaluated. Testing for SARS-CoV-2 (Severe acute respiratory syndrome coronavirus 2, formerly known as 2019 novel coronavirus or 2019-nCoV) to aid in the diagnosis of COVID-19 is performed using the [employer] COVID-19 Direct Assay by [employer] as authorized by the FDA issued Emergency Use Authorization (EUA). This assay is intended for In-vitro Diagnostic (IVD) use with nasopharyngeal swabs collected from individuals meeting the CDC criteria for testing. The assay is performed based on the instructions for use and additional guidance provided by the FDA. Testing is performed in the Microbiology Laboratory within the Department of Pathology and Laboratory Medicine at [facility], certified under the Clinical Laboratory Improvement Amendments of 1988 (CLIA), 42 U.S.C. section 263a, to perform high complexity tests. Assay performance has been verified according to clinical laboratory regulatory requirements. Test results are provided above. A result of Not Detected indicates that the viral RNA target is not present but does not preclude SARS-CoV-2 infection. False negative results may occur if a specimen is improperly collected, transported or handled; if amplification inhibitors are present; or if inadequate numbers of viral particles are present in the specimen. A result of Detected suggests a current or recent infection and the patient is presumed to be infected. Positive and negative predictive values for this test are highly dependent on disease prevalence. A result of Invalid indicates the inability to conclusively determine the presence or absence of SARS-CoV-2 RNA in the sample which can be due to a variety of factors. Recollection is recommended in the case of an invalid result. CDC COVID-19 criteria for testing on human specimens and clinical management guidance information are available at the CDC Coronavirus Disease 2019 (COVID-19) webpage under Information for Healthcare Professionals (https://www.cdc.gov/coronavirus/2019-ncov/hcp/index.html). Additional information about this and other EUA tests can be found in provider and patient fact sheets at the following FDA website: https://www.fda.gov/medical-devices/ifwvpcqqcil-wfwfmtl-3973-ksfxv-28-njzrlimnc- srw-uojptxdrmvegmb-oiqnwda-devices/vbhys-qwhnpzzpsng-catp SARS-CoV-2 Source ULTRASOUND SPEC Swab Pertinent radiology/diagnostic studies: ASSESSMENT/PLAN: Luis Manuel Mobley Jr. is a 61 y.o. 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 now day +5 (day 0 is 3) for MUD HSCT. Patient has an STCAIE that appears pre-renal given elevated BUN/Cr ratio and increased ostomy output. Will hydrate today and encourage use of imodium to help slow down output. Still making good urine. Will transfuse platelets to be able to give lovenox today for VOD ppx. For his heartburn, will increase PPI to bid. Plan: #STACIE - pre-renal - hydrate today, encourage imodium to thicken ostomy output - continue to monitor #AML #MUD HSCT Day (-7): Fludarabine: Day (-6): Fludarabine, Busulfan, Rabbit ATG: Day (-5): Fludarabine, Busulfan, Rabbit ATG: Day (-4): Fludarabine, Busulfan, Rabbit ATG: Day (-3): Fludarabine, Busulfan: Day (0): Stem Cell Infusion: Day (+1): metHOTREXate: Day (+3): metHOTREXate: Day (+6): metHOTREXate: Day (+11): metHOTREXate: General - q4h vitals - strict Is/Os 2x daily - weigh patient 2x daily, notify provider if weight increases by 1kg or more in 12 hour period ?- lasix 20mg IV prn weight gain >1 kg above admission baseline ?- lasix 20mg IV for weight gain 1 kg over 12 hours or input exceeding output by greater than 1,000 ml/12h - neutropenic precautions - incentive spirometry q2h while awake - activity as tolerated - electrolyte replacement Chemotherapy/Support - Busulfan 204mg??day (-6) to day (-3) -??Fludarabine??61??mg 102ml infusion once over 30 minutes day -7 Then every 24 hours at 0900 for 4 doses day (-6) to day (-3) - Rabbit ATG??124.8mg over 10 hours day (-6), 166.4mg on day (-5) 208??on day (-4).?? - Day 0 stem cell infusion. Premedicate with acetaminophen 650mg, diphenhydramine 50mg) - Methotrexate??10mg??day (+1), day (+3), day (+6), day (+11). Hold for serum creatinine >2, bilirubin >5, fluid accumulation (large effusion or ascites), severe mucositis if potential need for intubation. - filgrastim??600mcg qd starting day (+7) until ANC >1500 ?? Laboratory Monitoring - weekly CMV PCR starting day +10, then weekly thereafter - IgG every 2 weeks starting day +1 to day +100 - U/A s/ reflex culture on admission, then daily on days -2, -1, 0? Transfusion parameters - Hgb <??6.5 - PLT <10, or if febrile??or bleeding??<20 - keep active T&S once hgb <8 ?? Prophylaxis Seizure ppx ?-phenytoin 300 day (-6) through (-1) - GI ppx ?- pantoprazole 40mg bid (given heartburn) - mucositis ppx ?- supersaturated calcium phosphate oral solution 30ml 4x daily starting on admission until resolution of mucositis and ANC ?>500 - infection ppx ?- fluconazole 400mg qd starting day (0) ?- levofloxacin 750mg qd starting day (0) until ANC >500, changed tocefepime due to fever on 10/19 ?- acyclovir 800mg bid starting day (-7) ?- bactrim DS 1 tablet daily from day (-7) through day (-2) ?- bactrim DS 1 tablet MWF starting day (+30) - GVHD ppx?-??Tacrolimus??2.5mg BID??starting day (- 2)?target 5-10 trough - VOD ppx ?- lovenox 40mg qd day (-7) through (+30) per Dr. Modi's note, he should continue lovenox 100mg qd until plt apx <40 then switch to VOD ppx dose. ?- ursodiol 300mg qAM??&??qPM day (-7) through day (+30) Hydration - NaCl 0.9% continuous??150ml/hr x??day (-6) ??Through (-3) ?? Pain/Nausea/Appetite - avoid acetaminophen through??day??(-3) - avoid steroid antiemetics - palonosetron 0.25mg day (-6) - aprepitant 130mg day (-6) prior to??busulfan - lorazepam 0.5mg IV q4h prn nausea, anxiety - ondansetron??8mg q8h prn nausea, vomiting beginning day (-3) - prochlorperazine 10mg IV q6h prn nausea, vomiting - use ondansetron >??prochlorperazine or promethazine >??lorazepam >??metoclopramide - olanzapine 5mg qhs starting day (-3) for 5 doses? #Fever, resolved - 102.9 10/19 - C. Diff negative - UA unremarkable - BCx 10/20 negative - starting cefepime 10/19 - p - vanc 10/20 - 10/22 #Paroxysmal Afib - Continue home metoprolol (convert to tartrate), flecainide ?? #Hx of provoked PE in Apr 2021 - On lovenox 100mg qd (held prior to central line placement) - Continue until plt reach approximately 40 followed by switch to prophylactic dosing. ?? #Hx of C diff colitis - Continue home PO vancomycin - Ostomy care #Bilateral Feet tingling - pt reports having baseline bilateral feet tingling that was noted to be worsened on on 10/21 (2 daysafter completing 5 days of fludarabine), strength intact, no loss of sensation - start gabapentin 100mg TID (10/21 - 10/23), 200mg TID (10/23 - p) ?? #Routine DVT PPx: VOD ppx lovenox 40mg b/c platelet < 40 (holding home dose 100mg) Diet: Neutropenic (BMT) diet Dispo: 1-West CODE STATUS: Attempt Cardiopulmonary Resuscitation - Inpatient Chai Lnua MD PGY2 Internal Medicine 10/27/2021 Heme/Onc/BMT Team A Pager #[phone] Associated attestation - Walter Murcia MD - 10/27/2021 2:53 PM EDT This patient meets criteria for inpatient level of care based on the medical complexity as refected in notes. I have independently interviewed and examined this patient and have personally reviewed the relevantclinical, laboratory and radiological data with the housestaff on rounds. Please refer to the comprehensive progress note above, with which I concur, for complete details of our encounter with this patient. I have reviewed and endorse the plan as outlined and have made any additions/corrections below. Luis Manuel Mobley . is a 61 y.o.male with high-risk (FLT3+) AML adm???d on 10/15 for IDA-Wekc-CGD via Flu/Bu/ATG regimen. Pretransplant course marked by dev't of C difficile colitis with toxic megacolon requiring sto-nxgdc-uubnooqgx, with ostomy, then dev't of 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 Day +5 today Heme Zarxio support to start on Day +7 ID Acyclovir and fluconazole ppx Cefepime for previous neutropenic fever Oral vanco ppx GVHD Tacrolimus 2.5 mg BID Started on Day -2 GI Course complicated by diarrhea from ostomy Output increased over last few days, slower today Will give some hydration today Negative for C.diff PRN loperamide VOD ppx Ursodiol and lovenox Julianne Graham RN - 10/27/2021 6:52 AM EDT Illness Severity [x] Stable [] Watcher [] Unstable Patient Summary Reason for admission: Day +5 (10/27) of MUD alloSCT for AML conditioned with Flu/Bu/ATG/MTX Relevant PMH: s/p bowel resection/colectomy d/t toxic megacolon, Cdiff, Bilateral PE, hx paroxysmal AFIB Significant 24 hour events: 10/26 PM: Given Tums x 1 for acid reflux complaint. Both urine and stool heme positive. Cha bag connected to ileostomy pouch for drainage overnight-total stool volume 675 mL. Scant amount blood noted at stoma. R inner cheek lesion present but patient denies tenderness. Chemo plan & supportive medication: Fludarabine/ Busulfan/ATG/MTX Baseline Weight: 107.1 kg AM weight: 100.4 kg PM weight: Neuro: WDL CV: WDL Neurovasc: .WDL except, neurovascular assessment lower N/T bilateral feet @ baseline VTE Prophylaxis: lovenox Pulmonary: WDL O2 Device: None (Room air) GI: .WDL except, appearance/characteristics ileostomy; poor appetite : WDL Musculoskeletal: .WDL except, mobility generalized weakness Pain/Location: 0 (10/26/21 2146) / head (10/23/21 0900) Mobility Plan: IND, BA refusal Bed alarm sensitivity: N/A Skin: .WDL except, characteristics bruising & R cheek lesion (non-tender) Psych/Social: [employer] Action List MTX Days +6, +11 Monitor for mucositis (?) Ostomy care, monitor output - PRN imodium Continue IV antibiotics - cefepime Discharge Plan: 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 Lesion in R cheek appearing stable. Mag replacement completed. Assisted pt with ostomy appliance change this afternoon, stoma found to be lightly bleeding, MD aware. WCTM. Ambulated in hallway with FWW independently. Reporting heartburn starting after lunch, tums x2 w moderate effect. Chemo plan & supportive medication: Fludarabine/ Busulfan/ATG/MTX Baseline Weight: 107.1 kg AM weight: 101.5 kg (10/26) PM weight: 101.2 kg Action List MTX Days +6, +11 Monitor for mucositis (?) Ostomy care, monitor output - PRN imodium Continue IV antibiotics - cefepime Stacy Marin MD - 10/26/2021 7:07 AM EST Images from the original note were not included. Inpatient Hematology/Oncology/SCT Progress Note Patient info: Name: Luis Manuel Mobley Jr. : 1960 PCP: LEISA Munguia PCP phone number: [phone] Date of Admission: 10/15/2021 ( Hospital Day 11 days ) Service: Hem/Onc Team A pg [phone] (09/03) Responsible Attending:Sona Freitas MD ID: Luis Manuel Mobley Jr. is a 61 y.o. Male with hx of paroxysmal Afib, c diff colitis c/b toxic megacolon s/p bowel resection and colostomy in may 2021, FLT3+ AML with positive SUPER[employer] disease??s/p CR w/ 7+3+Midostaurin c/b relapse tx w ventoclax + gilteritinib (held since 10/08) most with pre-transplant BM and LP showing FELY, admitted for MUD allo HSCT.Today is day +4 (day 0 is 10/22). 24 Hour Events: - Yesterday, increasing ostomy output (2L) - Overnight, ostomy output > 1L overnight - This AM, denies mouth pain, denies abdominal pain, reports ate breakfast and lunch yesterday, but not dinner b/c not feeling well - Weight 102.3kg -> 101.5kg - Net neg 2.7L, PO 900, Stool 3L (2L yest, 1 L before) Vitals: Last value Range last 24 hrs Temperature Temp: 36.7 ??C (98.1 ??F) Temp: [36.3 ??C (97.3 ??F)-36.7 ??C (98.1 ??F)] Heart Rate Heart Rate: 79 Heart Rate: -- Blood Pressure BP: 132/81 BP: (117-132)/(71-81) Respiratory Rate Resp: 20 Resp: [16-20] SpO2 SpO2: 97 % SpO2: [97 %-100 %] Intake/Output Summary (Last 24 hours) at 10/26/2021 0707 Last data filed at 10/26/2021 0700 Gross per 24 hour Intake 1377 ml Output 4120 ml Net -2743 ml Patient Vitals for the past 168 hrs: Weight 10/26/21 0339 101.5 kg (223 lb 12.3 oz) 10/25/21 1829 102.3 kg (225 lb 8.5 oz) 10/25/21 0240 102.9 kg (226 lb 13.7 oz) 10/24/21 1532 103.5 kg (228 lb 2.8 oz) 10/24/21 0316 104.3 kg (229 lb 15 oz) 10/23/21 1531 105.6 kg (232 lb 12.9 oz) 10/23/21 0410 106.5 kg (234 lb 12.6 oz) 10/22/21 1627 107.3 kg (236 lb 8.9 oz) 10/22/21 0314 105.3 kg (232 lb 2.3 oz) 10/21/21 1508 106.1 kg (233 lb 14.5 oz) 10/21/21 0435 105 kg (231 lb 7.7 oz) 10/20/21 1653 105.4 kg (232 lb 5.8 oz) 10/20/21 0404 106.1 kg (233 lb 14.5 oz) 10/19/21 1656 107.9 kg (237 lb 14 oz) Exam: GENERAL:?appeared in no acute distress, playing solitary on ipad MOUTH: no ulcers noted CARDIOVASCULAR:??rrr no mrg PULMONARY:??CTAB on RA, no increased wob GASTROINTESTINAL:??Abdomen soft nontender to palpation w +BS. Colostomy with brown watery stool in place. SKIN:??No rashes, bruises or petechiae. ?? EXT: no Edema at ankles NEUROLOGICAL:??Alert and oriented to person, place and time. No focal deficits Medications: Scheduled Meds: ??? enoxaparin 40 mg Subcutaneous Daily ??? gabapentin 200 mg Oral TID ??? ceFEPime 2 g Intravenous Q8H ??? sodium chloride 0.9 % (flush) 5 mL Intravenous BID ??? metoprolol tartrate 12.5 mg Oral Q6H PIERCE ??? vancomycin 125 mg Oral BID ??? flecainide 50 mg Oral BID ??? pantoprazole EC 40 mg Oral Daily ??? supersaturated calcium phosphate 30 mL Oral 4 Times Daily ??? fluconazole 400 mg Oral Daily ??? acyclovir 800 mg Oral BID ??? [START ON 11/21/2021] sulfamethoxazole-trimethoprim DS 1 tablet Oral Daily ??? tacrolimus 0.03 mg/kg/dose (Treatment Plan Adjusted) Oral 2 times per day ??? ursodioL 300 mg Oral Daily with breakfast ??? ursodioL 600 mg Oral Daily with dinner ??? [START ON 10/28/2021] metHOTREXate (PF) 5 mg/m2/dose (Treatment Plan Adjusted) Intravenous Once ??? [START ON 11/02/2021] metHOTREXate (PF) 5 mg/m2/dose (Treatment Plan Adjusted) Intravenous Once ??? [START ON 10/29/2021] filgrastim-sndz 600 mcg Subcutaneous Daily Continuous Infusions: PRN Meds:.loperamide, furosemide, furosemide, sodium chloride 0.9 % (flush), lidocaine, LORazepam, ondansetron, prochlorperazine, potassium chloride ER, potassium chloride ER, potassium chloride, magnesium sulfate, magnesium sulfate, potassium phosphate, potassium phosphate, heparin, porcine, sodium chloride 0.9 % (flush) Labs: Recent Labs 10/26/2132410/25/21 02510/24/21 0316 WBC 0.6* 1.0* 1.6* HGB 8.1* 7.4* 6.6* HCT 22.9* 21.0* 19.0* PLATELET 16* 21* 30* NEUTROABS 0.53* 0.95* 1.50* Recent Labs 10/26/2132410/25/21 02510/24/21 031 NA 137 140 137 K 4.7 4.5 4.0 CL 113* 113* 110* CO2 13* 15* 17* BUN 36* 30* 24* CREATININE 1.07 1.22 1.06 Recent Labs 10/26/2132410/25/2125310/24/21 031 CALCIUM 9.0 9.1 8.7 MAGNESIUM 0.67* 0.77 0.78 PHOS 4.0 3.6 3.4 Recent Labs 10/25/2125310/24/216 10/23/21 0405 AST 19 16 21 ALT 28 28 22 ALKPHOS 68 70 68 BILITOT 0.3 0.3 0.3 BILIDIR 0.1 0.1 0.1 No results for input(s): INR, PT, PTT in the last 72 hours. Microbiology: BCx 10/20: NGTD UA 10/20: does not look infectious Microbiology Results (Last 30 days) Procedure Component Value Units Date/Time Blood culture [[id number]] Collected: 10/20/211731 Lab Status: Final result Specimen: Blood Updated: 10/25/21 230 Blood Culture No growth at 5 days. Blood culture [[id number]] Collected: 10/20/211731 Lab Status: Final result Specimen: Blood Updated: 10/25/21 230 Blood Culture No growth at 5 days. Blood culture [[id number]] Collected: 10/19/21 1139 Lab Status: Final result Specimen: Blood from Antecubital, Left Updated: 10/24/21 1501 Blood Culture No growth at 5 days. Blood culture [[id number]] (Abnormal) Collected: 10/19/21 1133 Lab Status: Final result Specimen: Blood from Hand, Right Updated: 10/25/21 0910 Blood Culture -- Coagulase negative Staphylococcus species detected by PCR Interpretation of the importance of skin mitzy such as Coagulase Negative Staph, Viridans Strep, Corynebacteria and other Gram Positive organisms from a single Blood Culture set requires clinical correlation. Gram Stain Aerobic -- Growth detected in aerobic bottle. Gram Positive Cocci in clusters seen C. Difficile Screen [[id number]] Collected: 10/19/21 1020 Lab Status: Final result Specimen: Stool Updated: 10/19/21 1607 C Diff Screen Negative Comment: Ag/Tox Neg C. diff?? Negative Clostridium difficile is not present in the specimen. If patient is having diarrhea suspected to be from an infectious cause, then Soap & Water Contact Precautions are still required. COVID-19 PCR [[id number]] Collected: 10/19/21 0405 Lab Status: Final result Specimen: Nasopharyngeal Swab Updated: 10/19/21 1834 SARS-CoV-2 RNA Not Detected Comment: This result should be interpreted in combination with the clinical observations, patient history and epidemiological information in making a final diagnosis. For testing of asymptomatic individuals, assay performance characteristics and clinical utility have not been evaluated. Testing for SARS-CoV-2 (Severe acute respiratory syndrome coronavirus 2, formerly known as 2019 novel coronavirus or 2019-nCoV) to aid in the diagnosis of COVID-19 is performed using the [employer] SARS-CoV-2 Assay as authorized by the FDA Emergency Use Authorization (EUA). This EUA assay is intended for In-vitro Diagnostic (IVD) use with respiratory specimens such as nasopharyngeal swabs collected from individuals during the acute phase of infection. This assay is performed based on the instructions for use provided by [employer] and additional guidance provided by CDC and FDA. Testing is performed in the [facility] within the Department of Pathology and Laboratory Medicine at [facility], certified under the Clinical Laboratory Improvement Amendments of 1988 (CLIA), 42 U.S.C. 263a, to perform high complexity tests. Assay performance has been verified according to clinical laboratory regulatory requirements for use with specimens collected from individuals suspected of COVID-19. Test results are provided above. A result of Not Detected indicates that the viral RNA target is not present above the limit of detection, but does not preclude SARS-CoV-2 infection. False negative results may occur if a specimen is improperly collected, transported or handled; if amplification inhibitors are present; or if inadequate numbers of viral particles are present in the specimen. When a diagnostic test is negative, the possibility of a false negative result should be considered in the context of a patient's recent exposures and the presence of clinical signs and symptoms consistent with COVID-19. A result of Detected indicates that RNA from SARS-CoV-2 was detected and the patient is infected. As required or requested by public health authorities, positive specimens may be sent for additional testing. Positive and negative predictive values for this test are highly dependent on disease prevalence. A result of Invalid indicates that neither the viral RNA targets nor the internal control target was detected. An invalid result suggests the presence of inhibitors. Recollection and re-testing is recommended in the case of an invalid result. CDC COVID-19 criteria for testing on human specimens and clinical management guidance information are available at the CDC Coronavirus Disease 2019 (COVID-19) webpage under Information for Healthcare Professionals (https://www.cdc.gov/coronavirus/2019-ncov/hcp/index.html) Additional information about this and other EUA tests can be found in provider and patient fact sheets at the following FDA website: https://www.fda.gov/medical-devices/xfqwjkxevqq-bxradbw-4229-fruez-84-xyvvusfjv- xko-rzmpasodjzmwsr-owzjuty-devices/wqzwz-jfdqjuzwdvo-orju SARS-Cov-2 RNA Source ULTRASOUND SPEC Swab COVID-19 PCR [[id number]] Collected: 10/15/212032 Lab Status: Final result Specimen: Nasopharyngeal Swab Updated: 10/16/21 0004 SARS-CoV-2 RNA PCR Not Detected Comment: This result should be interpreted in combination with the clinical observations, patient history and epidemiological information. For testing of asymptomatic individuals, assay performance characteristics and clinical utility have not been evaluated. Testing for SARS-CoV-2 (Severe acute respiratory syndrome coronavirus 2, formerly known as 2019 novel coronavirus or 2019-nCoV) to aid in the diagnosis of COVID-19 is performed using the [employer] COVID-19 Direct Assay by [employer] as authorized by the FDA issued Emergency Use Authorization (EUA). This assay is intended for In-vitro Diagnostic (IVD) use with nasopharyngeal swabs collected from individuals meeting the CDC criteria for testing. The assay is performed based on the instructions for use and additional guidance provided by the FDA. Testing is performed in the Microbiology Laboratory within the Department of Pathology and Laboratory Medicine at [facility], certified under the Clinical Laboratory Improvement Amendments of 1988 (CLIA), 42 U.S.C. section 263a, to perform high complexity tests. Assay performance has been verified according to clinical laboratory regulatory requirements. Test results are provided above. A result of Not Detected indicates that the viral RNA target is not present but does not preclude SARS-CoV-2 infection. False negative results may occur if a specimen is improperly collected, transported or handled; if amplification inhibitors are present; or if inadequate numbers of viral particles are present in the specimen. A result of Detected suggests a current or recent infection and the patient is presumed to be infected. Positive and negative predictive values for this test are highly dependent on disease prevalence. A result of Invalid indicates the inability to conclusively determine the presence or absence of SARS-CoV-2 RNA in the sample which can be due to a variety of factors. Recollection is recommended in the case of an invalid result. CDC COVID-19 criteria for testing on human specimens and clinical management guidance information are available at the CDC Coronavirus Disease 2019 (COVID-19) webpage under Information for Healthcare Professionals (https://www.cdc.gov/coronavirus/2019-ncov/hcp/index.html). Additional information about this and other EUA tests can be found in provider and patient fact sheets at the following FDA website: https://www.fda.gov/medical-devices/qunwgflxbvm-llqoers-8908-htovr-66-ehxamhfer- xul-mmfqrqsgacuvrr-gevtart-devices/bomku-ypokwjljhpj-wjdn SARS-CoV-2 Source ULTRASOUND SPEC Swab Pertinent radiology/diagnostic studies: ASSESSMENT/PLAN: Luis Manuel Mobley Jr. is a 61 y.o. 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 now day +4 (day 0 is 10/22) for MUD HSCT. Patient has been afebrile for the last several days. Infectious workup remains negative. Tolerated stem cell infusion well on 10/22, had some rigors and nausea post-infusion that resolved with medications. Counts dropping as expected. Continue cefepime due to high risk of infection given HSCT status. For his ostomy output, will continue to monitor and make sure patient is hydrated. Will also monitorfor signs of mucositis. For his bilateral feet neuropathy, will continue gabapentin to 200mt TID. Summary Plan: - Zarxio support to start on Day +7 - continue gabapentin to 200mg TID - continue cefepime - monitor I/O and daily weights - monitor ostomy output ?? Plan: #AML #MUD HSCT Day (-7): Fludarabine: Day (-6): Fludarabine, Busulfan, Rabbit ATG: Day (-5): Fludarabine, Busulfan, Rabbit ATG: Day (-4): Fludarabine, Busulfan, Rabbit ATG: Day (-3): Fludarabine, Busulfan: Day (0): Stem Cell Infusion: Day (+1): metHOTREXate: Day (+3): metHOTREXate: Day (+6): metHOTREXate: Day (+11): metHOTREXate: General - q4h vitals - strict Is/Os 2x daily - weigh patient 2x daily, notify provider if weight increases by 1kg or more in 12 hour period ?- lasix 20mg IV prn weight gain >1 kg above admission baseline ?- lasix 20mg IV for weight gain 1 kg over 12 hours or input exceeding output by greater than 1,000 ml/12h - neutropenic precautions - incentive spirometry q2h while awake - activity as tolerated - electrolyte replacement Chemotherapy/Support - Busulfan 204mg??day (-6) to day (-3) -??Fludarabine??61??mg 102ml infusion once over 30 minutes day -7 Then every 24 hours at 0900 for 4 doses day (-6) to day (-3) - Rabbit ATG??124.8mg over 10 hours day (-6), 166.4mg on day (-5) 208??on day (-4).?? - Day 0 stem cell infusion. Premedicate with acetaminophen 650mg, diphenhydramine 50mg) - Methotrexate??10mg??day (+1), day (+3), day (+6), day (+11). Hold for serum creatinine >2, bilirubin >5, fluid accumulation (large effusion or ascites), severe mucositis if potential need for intubation. - filgrastim??600mcg qd starting day (+7) until ANC >1500 ?? Laboratory Monitoring - weekly CMV PCR starting day +10, then weekly thereafter - IgG every 2 weeks starting day +1 to day +100 - U/A s/ reflex culture on admission, then daily on days -2, -1, 0? Transfusion parameters - Hgb <??6.5 - PLT <10, or if febrile??or bleeding??<20 - keep active T&S once hgb <8 ?? Prophylaxis Seizure ppx ?-phenytoin 300 day (-6) through (-) - GI ppx ?- pantoprazole 40mg qd - mucositis ppx ?- supersaturated calcium phosphate oral solution 30ml 4x daily starting on admission until resolution of mucositis and ANC ?>500 - infection ppx ?- fluconazole 400mg qd starting day (0) ?- levofloxacin 750mg qd starting day (0) until ANC >500, changed tocefepime due to fever on 10/19 ?- acyclovir 800mg bid starting day (-7) ?- bactrim DS 1 tablet daily from day (-7) through day (-2) ?- bactrim DS 1 tablet MWF starting day (+30) - GVHD ppx?-??Tacrolimus??2.5mg BID??starting day (- 2)?target 5-10 trough - VOD ppx ?- lovenox 40mg qd day (-7) through (30) per Dr. Modi's note, he should continue lovenox 100mg qd until plt apx <40 then switch to VOD ppx dose. ?- ursodiol 300mg qAM??&??qPM day (-7) through day (+30) Hydration - NaCl 0.9% continuous??150ml/hr x??day (-6) ??Through (-3) ?? Pain/Nausea/Appetite - avoid acetaminophen through??day??(-3) - avoid steroid antiemetics - palonosetron 0.25mg day (-6) - aprepitant 130mg day (-6) prior to??busulfan - lorazepam 0.5mg IV q4h prn nausea, anxiety - ondansetron??8mg q8h prn nausea, vomiting beginning day (-3) - prochlorperazine 10mg IV q6h prn nausea, vomiting - use ondansetron >??prochlorperazine or promethazine >??lorazepam >??metoclopramide - olanzapine 5mg qhs starting day (-3) for 5 doses? #Fever, resolved - 102.9 3/5 - C. Diff negative - UA unremarkable - BCx 10/20 negative - starting cefepime 10/19 - p - start vanc 10/20 - 10/22 #Paroxysmal Afib - Continue home metoprolol (convert to tartrate), flecainide ?? #Hx of provoked PE in Apr 2021 - On lovenox 100mg qd (held prior to central line placement) - Continue until plt reach approximately 40 followed by switch to prophylactic dosing. ?? #Hx of C diff colitis - Continue home PO vancomycin - Ostomy care #Bilateral Feet tingling - pt reports having baseline bilateral feet tingling that was noted to be worsened on on 10/21 (2 daysafter completing 5 days of fludarabine), strength intact, no loss of sensation - start gabapentin 100mg TID (10/21 - 10/23), 200mg TID (10/23 - p) ?? #Routine DVT PPx: VOD ppx lovenox 40mg b/c platelet < 40 (holding home dose 100mg) Diet: Neutropenic (BMT) diet Dispo: 1-West CODE STATUS: Attempt Cardiopulmonary Resuscitation - Inpatient Stacy Marin MD PGY1 Internal Medicine 10/26/2021 Heme/Onc/BMT Team A Pager #[phone] Associated attestation - Walter Murcia MD - 10/26/2021 2:01 PM EST This patient meets criteria for inpatient level of care based on the medical complexity as refected in notes. I have independently interviewed and examined this patient and have personally reviewed the relevantclinical, laboratory and radiological data with the housestaff on rounds. Please refer to the comprehensive progress note above, with which I concur, for complete details of our encounter with this patient. I have reviewed and endorse the plan as outlined and have made any additions/corrections below. Luis Manuel Mobley Jr. is a 61 y.o.male with high-risk (FLT3+) AML adm???d on 10/15 for LQW-Cnrh-PST via Flu/Bu/ATG regimen. Pretransplant course marked by dev't of C difficile colitis with toxic megacolon requiring abo-dwnud-zwlmfcsoi, with ostomy, then dev't of 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 Day +4 today Heme Zarxio support to start on Day +7 ID Acyclovir and fluconazole ppx Cefepime for previous neutropenic fever Oral vanco ppx GVHD Tacrolimus 2.5 mg BID Started on Day -2 GI Course complicated by diarrhea from ostomy Output increased overnight, he says this is not unusual Negative for C.diff PRN loperamide VOD ppx Ursodiol and lovenox Denise Zapata RN - 10/26/2021 5:30 AM EST Illness Severity [x] Stable [] Watcher [] Unstable Patient Summary Reason for admission: Day +4 (10/26) of MUD alloSCT for AML conditioned with Flu/Bu/ATG/MTX Relevant PMH: s/p bowel resection/colectomy d/t toxic megacolon, Cdiff, Bilateral PE, hx paroxysmal AFIB Significant 24 hour events: 10/25 PM: Ostomy output >1L overnight. Prn zofran given x1 for nausea w/ + effect. Mag replacementstarted. 311 AM: Patient received Day +3 MTX without issue today. Urine heme positive. Stool output increased to 1720 mL today. PT consulted. Lovenox changed to am now that his platelets are dropping. Denied diplopia. Afebrile. Continues on Cefepime. Chemo plan & supportive medication: Fludarabine/ Busulfan/ATG/MTX Baseline Weight: 107.1 kg AM weight: 101.5 kg (10/26) PM weight: 102.3 kg Neuro: WDL CV: WDL Neurovasc: .WDL except, neurovascular assessment lower N/T bilateral feet @ baseline VTE Prophylaxis: anticoagulant therapy lovenox Pulmonary: WDL O2 Device: None (Room air) GI: .WDL except ileostomy; poor appetite : WDL Musculoskeletal: .WDL except generalized weakness Pain/Location: 0 (10/25/211999) / head (10/23/21899) Mobility Plan: IND, BA refusal Bed alarm sensitivity: N/A Skin: .WDL except bruising & R cheek lesion (non-tender) Psych/Social: [employer] Action List MTX Days +6, +11 Monitor for mucositis (?) Ostomy care, monitor output - PRN imodium Continue IV antibiotics - cefepime Julianne Graham RN - 10/25/2021 7:59 PM EST Illness Severity [x] Stable [] Watcher [] Unstable Patient Summary Reason for admission: Day +3 (10/25) of MUD alloSCT for AML conditioned with Flu/Bu/ATG/MTX Relevant PMH: s/p bowel resection/colectomy d/t toxic megacolon, Cdiff, Bilateral PE, hx paroxysmal AFIB Significant 24 hour events: 10/25 AM: Patient received Day +3 MTX without issue today. Urine heme positive. Stool output increased to 1720 mL today. PT consulted. Lovenox changed to am now that his platelets are dropping. Denied diplopia. Afebrile. Continues on Cefepime. Chemo plan & supportive medication: Fludarabine/ Busulfan/ATG/MTX Baseline Weight: 107.1 kg AM weight: 102.9 PM weight: 102/3 kg Neuro: WDL CV: WDL Neurovasc: .WDL except N/T bilateral feet @ baseline VTE Prophylaxis: anticoagulant therapy lovenox Pulmonary: WDL O2 Device: None (Room air) GI: .WDL except ileostomy; poor appetite, but no nausea. 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 [facility] house, stating Very enjoyable and relaxing!. [facility] Team will continue to try and see 2-3x/week. Kristel Weiner RN - 10/25/2021 10:51 AM EST Pt received Day+3 methotrexate. Blood return and site checks completed per policy. Tolerated without issue. Stacy Marin MD - 10/25/2021 7:24 AM EST Images from the original note were not included. Inpatient Hematology/Oncology/SCT Progress Note Patient info: Name: Luis Manuel Mobley Jr. : 1960 PCP: LEISA Munguia PCP phone number: [phone] Date of Admission: 10/15/2021 ( Hospital Day 10 days ) Service: Hem/Onc Team A pg [id number] (09/03) Responsible Attending:Sona Freitas MD ID: Luis Manuel Benjamín Mobley JrNabil is a 61 y.o. Male with hx of paroxysmal Afib, c diff colitis c/b toxic megacolon s/p bowel resection and colostomy in may 2021, FLT3+ AML with positive SU[employer] disease??s/p CR w/ 7+3+Midostaurin c/b relapse tx w ventoclax + gilteritinib (held since 10/08) most with pre-transplant BM and LP showing FELY, admitted for MUD allo HSCT.Today is day +3 (day 0 is 10/22). 24 Hour Events: - yesterday, tachy with exertion - overnight, poor po intake, no appetite but trying to eat small meals, R cheek lesion, denies pain,high ostomy output, stable BLE numbness - This AM, reports able to eat 100% of lunch and dinner yesterday, walked 10 labs around the hallwaywith walker due to feet tingling, PT ordered - Weight: 104.3kg -> 102.9kg - In/Out: -1755ml (2L of ostomy output, about double the day before) Vitals: Last value Range last 24 hrs Temperature Temp: 36.4 ??C (97.5 ??F) Temp: [36.4 ??C (97.5 ??F)-36.7 ??C (98.1 ??F)] Heart Rate Heart Rate: 79 Heart Rate: [72-82] Blood Pressure BP: 114/76 BP: (109-130)/(68-80) Respiratory Rate Resp: 20 Resp: [18-24] SpO2 SpO2: 99 % SpO2: [97 %-100 %] Intake/Output Summary (Last 24 hours) at 10/25/2021 0724 Last data filed at 10/25/2021 0300 Gross per 24 hour Intake 1520 ml Output 3275 ml Net -1755 ml Patient Vitals for the past 168 hrs: Weight 10/25/21 0240 102.9 kg (226 lb 13.7 oz) 10/24/21 1532 103.5 kg (228 lb 2.8 oz) 10/24/21 0316 104.3 kg (229 lb 15 oz) 10/23/21 1531 105.6 kg (232 lb 12.9 oz) 10/23/21 0410 106.5 kg (234 lb 12.6 oz) 10/22/21 1627 107.3 kg (236 lb 8.9 oz) 10/22/21 0314 105.3 kg (232 lb 2.3 oz) 10/21/21 1508 106.1 kg (233 lb 14.5 oz) 10/21/21 0435 105 kg (231 lb 7.7 oz) 10/20/21 1653 105.4 kg (232 lb 5.8 oz) 10/20/21 0404 106.1 kg (233 lb 14.5 oz) 10/19/21 1656 107.9 kg (237 lb 14 oz) 10/19/21 0352 107.8 kg (237 lb 10.5 oz) 10/18/21 1526 109 kg (240 lb 4.8 oz) Exam: GENERAL:?appeared in no acute distress, playing solitary on ipad CARDIOVASCULAR:??rrr no mrg PULMONARY:??CTAB on RA, no increased wob GASTROINTESTINAL:??Abdomen soft nontender to palpation w +BS. Colostomy with brown watery stool in place. SKIN:??No rashes, bruises or petechiae. ?? EXT: no Edema at ankles NEUROLOGICAL:??Alert and oriented to person, place and time. No focal deficits Medications: Scheduled Meds: ??? enoxaparin 40 mg Subcutaneous Nightly ??? gabapentin 200 mg Oral TID ??? ceFEPime 2 g Intravenous Q8H ??? sodium chloride 0.9 % (flush) 5 mL Intravenous BID ??? metoprolol tartrate 12.5 mg Oral Q6H PIERCE ??? vancomycin 125 mg Oral BID ??? flecainide 50 mg Oral BID ??? pantoprazole EC 40 mg Oral Daily ??? supersaturated calcium phosphate 30 mL Oral 4 Times Daily ??? fluconazole 400 mg Oral Daily ??? acyclovir 800 mg Oral BID ??? [START ON 11/21/2021] sulfamethoxazole-trimethoprim DS 1 tablet Oral Daily ??? tacrolimus 0.03 mg/kg/dose (Treatment Plan Adjusted) Oral 2 times per day ??? ursodioL 300 mg Oral Daily with breakfast ??? ursodioL 600 mg Oral Daily with dinner ??? metHOTREXate (PF) 5 mg/m2/dose (Treatment Plan Adjusted) Intravenous Once ??? [START ON 10/28/2021] metHOTREXate (PF) 5 mg/m2/dose (Treatment Plan Adjusted) Intravenous Once ??? [START ON 11/02/2021] metHOTREXate (PF) 5 mg/m2/dose (Treatment Plan Adjusted) Intravenous Once ??? [START ON 10/29/2021] filgrastim-sndz 600 mcg Subcutaneous Daily Continuous Infusions: PRN Meds:.loperamide, furosemide, furosemide, sodium chloride 0.9 % (flush), lidocaine, LORazepam, ondansetron, prochlorperazine, potassium chloride ER, potassium chloride ER, potassium chloride, magnesium sulfate, magnesium sulfate, potassium phosphate, potassium phosphate, heparin, porcine, sodium chloride 0.9 % (flush) Labs: Recent Labs 10/25/2125310/24/2131510/23/21 0405 WBC 1.0* 1.6* 1.8* HGB 7.4* 6.6* 7.0* HCT 21.0* 19.0* 20.7* PLATELET 21* 30* 44* NEUTROABS 0.95* 1.50* 1.77 Recent Labs 10/25/2125310/24/2131510/23/21 0405 NA 140 137 134* K 4.5 4.0 4.6 CL 113* 110* 112* CO2 15* 17* 13* BUN 30* 24* 26* CREATININE 1.22 1.06 1.14 Recent Labs 10/25/2125310/24/2131510/23/21 0405 CALCIUM 9.1 8.7 8.4* MAGNESIUM 0.77 0.78 0.76 PHOS 3.6 3.4 2.5 Recent Labs 10/25/2125310/24/2131510/23/21 0405 AST 19 16 21 ALT 28 28 22 ALKPHOS 68 70 68 BILITOT 0.3 0.3 0.3 BILIDIR 0.1 0.1 0.1 No results for input(s): INR, PT, PTT in the last 72 hours. Microbiology: BCx 10/20: NGTD UA 10/20: does not look infectious Microbiology Results (Last 30 days) Procedure Component Value Units Date/Time Blood culture [[id number]] Collected: 10/20/211731 Lab Status: Preliminary result Specimen: Blood Updated: 10/24/212300 Blood Culture No growth at 4 days. Blood culture [[id number]] Collected: 10/20/211731 Lab Status: Preliminary result Specimen: Blood Updated: 10/24/212300 Blood Culture No growth at 4 days. Blood culture [[id number]] Collected: 10/19/21 1139 Lab Status: Final result Specimen: Blood from Antecubital, Left Updated: 10/24/21 1501 Blood Culture No growth at 5 days. Blood culture [[id number]] (Abnormal) Collected: 10/19/21 1133 Lab Status: Preliminary result Specimen: Blood from Hand, Right Updated: 10/20/21 1441 Blood Culture -- Coagulase negative Staphylococcus species detected by PCR Interpretation of the importance of skin mitzy such as Coagulase Negative Staph, Viridans Strep, Corynebacteria and other Gram Positive organisms from a single Blood Culture set requires clinical correlation. Gram Stain Aerobic -- Growth detected in aerobic bottle. Gram Positive Cocci in clusters seen C. Difficile Screen [[id number]] Collected: 10/19/21 1020 Lab Status: Final result Specimen: Stool Updated: 10/19/21 1607 C Diff Screen Negative Comment: Ag/Tox Neg C. diff?? Negative Clostridium difficile is not present in the specimen. If patient is having diarrhea suspected to be from an infectious cause, then Soap & Water Contact Precautions are still required. COVID-19 PCR [[id number]] Collected: 10/19/21 0405 Lab Status: Final result Specimen: Nasopharyngeal Swab Updated: 10/19/21 1834 SARS-CoV-2 RNA Not Detected Comment: This result should be interpreted in combination with the clinical observations, patient history and epidemiological information in making a final diagnosis. For testing of asymptomatic individuals, assay performance characteristics and clinical utility have not been evaluated. Testing for SARS-CoV-2 (Severe acute respiratory syndrome coronavirus 2, formerly known as 2019 novel coronavirus or 2019-nCoV) to aid in the diagnosis of COVID-19 is performed using the [employer] SARS-CoV-2 Assay as authorized by the FDA Emergency Use Authorization (EUA). This EUA assay is intended for In-vitro Diagnostic (IVD) use with respiratory specimens such as nasopharyngeal swabs collected from individuals during the acute phase of infection. This assay is performed based on the instructions for use provided by [employer] and additional guidance provided by CDC and FDA. Testing is performed in the [facility] within the Department of Pathology and Laboratory Medicine at [facility], certified under the Clinical Laboratory Improvement Amendments of 1988 (CLIA), 42 U.S.C. 263a, to perform high complexity tests. Assay performance has been verified according to clinical laboratory regulatory requirements for use with specimens collected from individuals suspected of COVID-19. Test results are provided above. A result of Not Detected indicates that the viral RNA target is not present above the limit of detection, but does not preclude SARS-CoV-2 infection. False negative results may occur if a specimen is improperly collected, transported or handled; if amplification inhibitors are present; or if inadequate numbers of viral particles are present in the specimen. When a diagnostic test is negative, the possibility of a false negative result should be considered in the context of a patient's recent exposures and the presence of clinical signs and symptoms consistent with COVID-19. A result of Detected indicates that RNA from SARS-CoV-2 was detected and the patient is infected. As required or requested by public health authorities, positive specimens may be sent for additional testing. Positive and negative predictive values for this test are highly dependent on disease prevalence. A result of Invalid indicates that neither the viral RNA targets nor the internal control target was detected. An invalid result suggests the presence of inhibitors. Recollection and re-testing is recommended in the case of an invalid result. CDC COVID-19 criteria for testing on human specimens and clinical management guidance information are available at the CDC Coronavirus Disease 2019 (COVID-19) webpage under Information for Healthcare Professionals (https://www.cdc.gov/coronavirus/2019-ncov/hcp/index.html) Additional information about this and other EUA tests can be found in provider and patient fact sheets at the following FDA website: https://www.fda.gov/medical-devices/gzwcthvvcfw-zlgmvdw-7100-dmapu-96-albeguboy- vem-mdijsuzdcomklu-vxwlaes-devices/ihhvl-gjnsbbvbzhl-carx SARS-Cov-2 RNA Source ULTRASOUND SPEC Swab COVID-19 PCR [[id number]] Collected: 10/15/212032 Lab Status: Final result Specimen: Nasopharyngeal Swab Updated: 10/16/21 0004 SARS-CoV-2 RNA PCR Not Detected Comment: This result should be interpreted in combination with the clinical observations, patient history and epidemiological information. For testing of asymptomatic individuals, assay performance characteristics and clinical utility have not been evaluated. Testing for SARS-CoV-2 (Severe acute respiratory syndrome coronavirus 2, formerly known as 2019 novel coronavirus or 2019-nCoV) to aid in the diagnosis of COVID-19 is performed using the [employer] COVID-19 Direct Assay by [employer] as authorized by the FDA issued Emergency Use Authorization (EUA). This assay is intended for In-vitro Diagnostic (IVD) use with nasopharyngeal swabs collected from individuals meeting the CDC criteria for testing. The assay is performed based on the instructions for use and additional guidance provided by the FDA. Testing is performed in the Microbiology Laboratory within the Department of Pathology and Laboratory Medicine at [facility], certified under the Clinical Laboratory Improvement Amendments of 1988 (CLIA), 42 U.S.C. section 263a, to perform high complexity tests. Assay performance has been verified according to clinical laboratory regulatory requirements. Test results are provided above. A result of Not Detected indicates that the viral RNA target is not present but does not preclude SARS-CoV-2 infection. False negative results may occur if a specimen is improperly collected, transported or handled; if amplification inhibitors are present; or if inadequate numbers of viral particles are present in the specimen. A result of Detected suggests a current or recent infection and the patient is presumed to be infected. Positive and negative predictive values for this test are highly dependent on disease prevalence. A result of Invalid indicates the inability to conclusively determine the presence or absence of SARS-CoV-2 RNA in the sample which can be due to a variety of factors. Recollection is recommended in the case of an invalid result. CDC COVID-19 criteria for testing on human specimens and clinical management guidance information are available at the CDC Coronavirus Disease 2019 (COVID-19) webpage under Information for Healthcare Professionals (https://www.cdc.gov/coronavirus/2019-ncov/hcp/index.html). Additional information about this and other EUA tests can be found in provider and patient fact sheets at the following FDA website: https://www.fda.gov/medical-devices/cnjijwimyhk-wcdghcy-5818-lngma-70-lgoqhxzvj- luo-upynufklxgfdtj-ycgaekx-devices/cfngy-noesqpyfsmz-trik SARS-CoV-2 Source ULTRASOUND SPEC Swab Pertinent radiology/diagnostic studies: ASSESSMENT/PLAN: Luis Manuel Mobley Jr. is a 61 y.o. 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 now day +3 (day 0 is 10/22) for MUD HSCT. Patient has been afebrile for the last several days. Infectious workup remains negative. Tolerated stem cell infusion well on 10/22, had some rigors and nausea post-infusion that resolved with medications. Counts dropping as expected. Continue cefepime due to high risk of infection given HSCT status. For his ostomy output, will continue to monitor and make sure patient is hydrated. Will also monitorfor signs of mucositis. For his bilateral feet neuropathy, will continue gabapentin to 200mt TID. Summary Plan: - continue gabapentin to 200mg TID - continue cefepime - monitor I/O and daily weights - monitor ostomy output ?? Plan: #AML #MUD HSCT Day (-7): Fludarabine: Day (-6): Fludarabine, Busulfan, Rabbit ATG: Day (-5): Fludarabine, Busulfan, Rabbit ATG: Day (-4): Fludarabine, Busulfan, Rabbit ATG: Day (-3): Fludarabine, Busulfan: Day (0): Stem Cell Infusion: Day (+1): metHOTREXate: Day (+3): metHOTREXate: Day (+6): metHOTREXate: Day (+11): metHOTREXate: General - q4h vitals - strict Is/Os 2x daily - weigh patient 2x daily, notify provider if weight increases by 1kg or more in 12 hour period ?- lasix 20mg IV prn weight gain >1 kg above admission baseline ?- lasix 20mg IV for weight gain 1 kg over 12 hours or input exceeding output by greater than 1,000 ml/12h - neutropenic precautions - incentive spirometry q2h while awake - activity as tolerated - electrolyte replacement Chemotherapy/Support - Busulfan 204mg??day (-6) to day (-3) -??Fludarabine??61??mg 102ml infusion once over 30 minutes day -7 Then every 24 hours at 0900 for 4 doses day (-6) to day (-3) - Rabbit ATG??124.8mg over 10 hours day (-6), 166.4mg on day (-5) 208??on day (-4).?? - Day 0 stem cell infusion. Premedicate with acetaminophen 650mg, diphenhydramine 50mg) - Methotrexate??10mg??day (+1), day (+3), day (+6), day (+11). Hold for serum creatinine >2, bilirubin >5, fluid accumulation (large effusion or ascites), severe mucositis if potential need for intubation. - filgrastim??600mcg qd starting day (+7) until ANC >1500 ?? Laboratory Monitoring - weekly CMV PCR starting day +10, then weekly thereafter - IgG every 2 weeks starting day +1 to day +100 - U/A s/ reflex culture on admission, then daily on days -2, -1, 0? Transfusion parameters - Hgb <??6.5 - PLT <10, or if febrile??or bleeding??<20 - keep active T&S once hgb <8 ?? Prophylaxis Seizure ppx ?-phenytoin 300 day (-6) through (-1) - GI ppx ?- pantoprazole 40mg qd - mucositis ppx ?- supersaturated calcium phosphate oral solution 30ml 4x daily starting on admission until resolution of mucositis and ANC ?>500 - infection ppx ?- fluconazole 400mg qd starting day (0) ?- levofloxacin 750mg qd starting day (0) until ANC >500, changed tocefepime due to fever on 10/19 ?- acyclovir 800mg bid starting day (-7) ?- bactrim DS 1 tablet daily from day (-7) through day (-2) ?- bactrim DS 1 tablet MWF starting day (+30) - GVHD ppx?-??Tacrolimus??1.5mg BID??starting day (- 2)?target 5-10 trough - VOD ppx ?- lovenox 40mg qd day (-7) through (+30) per Dr. Modi's note, he should continue lovenox 100mg qd until plt apx <40 then switch to VOD ppx dose. ?- ursodiol 300mg qAM??&??qPM day (-7) through day (+30) Hydration - NaCl 0.9% continuous??150ml/hr x??day (-6) ??Through (-3) ?? Pain/Nausea/Appetite - avoid acetaminophen through??day??(-3) - avoid steroid antiemetics - palonosetron 0.25mg day (-6) - aprepitant 130mg day (-6) prior to??busulfan - lorazepam 0.5mg IV q4h prn nausea, anxiety - ondansetron??8mg q8h prn nausea, vomiting beginning day (-3) - prochlorperazine 10mg IV q6h prn nausea, vomiting - use ondansetron >??prochlorperazine or promethazine >??lorazepam >??metoclopramide - olanzapine 5mg qhs starting day (-3) for 5 doses? #Fever, resolved - 102.9 10/19 - C. Diff negative - UA unremarkable - BCx 10/20 negative - starting cefepime 10/19 - p - start vanc 10/20 - 10/22 #Paroxysmal Afib - Continue home metoprolol (convert to tartrate), flecainide ?? #Hx of provoked PE in Apr 2021 - On lovenox 100mg qd (held prior to central line placement) - Continue until plt reach approximately 40 followed by switch to prophylactic dosing. ?? #Hx of C diff colitis - Continue home PO vancomycin - Ostomy care #Bilateral Feet tingling - pt reports having baseline bilateral feet tingling that was noted to be worsened on on 10/21 (2 daysafter completing 5 days of fludarabine), strength intact, no loss of sensation - start gabapentin 100mg TID (10/21 - 10/23), 200mg TID (10/23 - p) ?? #Routine DVT PPx: VOD ppx lovenox 40mg b/c platelet < 40 (holding home dose 100mg) Diet: Neutropenic (BMT) diet Dispo: 1-[place] CODE STATUS: Attempt Cardiopulmonary Resuscitation - Inpatient Stacy Marin MD PGY1 Internal Medicine 10/25/2021 Heme/Onc/BMT Team A Pager #[phone] Associated attestation - Sona Freitas MD - 10/25/2021 9:24 PM EST Hematology Inpatient Staff Addendum I have seen and examined this patient, reviewed all clinical, laboratory and radiographic data and discussed the case in detail with the housestaff. I agree with the findings, assessment and plan as outlined in today's housestaff note, with any additions or changes included below. Luis Manuel Mobley . is a 61 y.o. male with high-risk (FLT3+) AML adm???d on 10/15 for NLX-Hpmn-AZD via Flu/Bu/ATG regimen. Course marked by dev't of C difficile colitis with toxic megacolon requiring [id number]-pixtcvmbv, with ostomy, then dev't of 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 Day +3 today Heme Zarxio support to start on Day +7 ID Acyclovir and fluconazole ppx Cefepime for previous neutropenic fever Oral vanco ppx GVHD Tacrolimus 2.5 mg BID Started on Day -2 GI Course complicated by diarrhea from ostomy Negative for C.diff PRN loperamide VOD ppx Ursodiol and lovenox SONA FREITAS MD Pager [phone] Dept of Hematology Central Venous Access Statement of Need Can the central IV access be removed? [ ] Yes [x] No [ ] N/A If no, reason for central access: [ ] TPN ] Chemotherapy [ ] IV Antibiotics [ ] Vasoactive medication [ ] Vesicant medication [ ] Active resuscitation with fluid or blood products [ ] Poor vascular access as determined by vascular access [x ] Stem cell transplant patient or AML induction [ ] Other: SONA FREITAS MD Pager [phone] Dept of Hematology Kelsy Mujica RN - 10/25/2021 1:35 AM EST Illness Severity [x] Stable [] Watcher [] Unstable Patient Summary Reason for admission: Day +3 (10/25) of MUD alloSCT for AML conditioned with Flu/Bu/ATG/MTX Relevant PMH: s/p bowel resection/colectomy d/t toxic megacolon, Cdiff, Bilateral PE, hx paroxysmal AFIB Significant 24 hour events: 10/24 PM: VSS on RA. Denied pain, nausea. Endorses poor PO intake, no appetite but trying to eat small snacks/meals. R cheek lesion present, pt does not feel/doesn't bother him. Ileostomy with liquid brown stool output, high output bag attached. C/w BLE numbness and tingling, stable. Resting between care. 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 Tachy w/ exertion. High ostomy output, bag in place. (> 1L). Showered and ambulated independently w/ walker in room. Denies nausea or pain today. Cefepime per OCT. MTX due 05/27. Poor appetite, continue to encourage small frequent meals. BLE N/T, Neurontin started, no improvement but not getting worse. Chemo plan & supportive medication: Fludarabine/ Busulfan/ATG/MTX Baseline Weight: 107.1 kg AM weight: 104.3 kg PM weight: 103.5 kg Action List Monitor fevers - last blood culture 10/21 1731 Ostomy care, monitor output - PRN imodium Encourage ambulation as tolerated, PO intake Continue IV antibiotics - cefepime Caridad Patricia - 10/24/2021 11:31 AM EST Nutrition Progress Note Luis Manuel Mobley JrNabil is a 61 y.o. 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 Reason for intervention: Follow up Nutrition Recommendations: BMT diet Encourage good po intake Monitor wt - trend Monitor lytes - replete as indicated Active Orders Diet Neutropenic (BMT) diet Frequency: Effective Now Number of Occurrences: Until Specified Order Comments: No grapefruit products Lab Results Component Value Date NA 137 10/24/2021 K 4.0 10/24/2021 CL 110 (H) 10/24/2021 CO2 17 (L) 10/24/2021 BUN 24 (H) 10/24/2021 CREATININE 1.06 10/24/2021 ESTGFR 75 10/24/2021 MAGNESIUM 0.78 10/24/2021 CALCIUM 8.7 10/24/2021 PHOS 3.4 10/24/2021 AST 16 10/24/2021 ALT 28 10/24/2021 ALKPHOS 70 10/24/2021 BILITOT 0.3 10/24/2021 BILIDIR 0.1 10/24/2021 TRIG 171 07/13/2021 HA1C 4.8 07/13/2021 [id number] 1,799 (H) 08/01/2021 SFOLATE 5.6 08/01/2021 IRON [...] IV sites Other Sites: ostomy Relevant medications: acyclovir, methotrexate, protonix, bactrim, caphosol, prograf, NS at 250 ml/hr Last Bowel Movement: 10/24/21 Admit Weight: 107.1 kg Estimated body mass index is 33.29 kg/m?? as calculated from the following: Height as of this encounter: 177 cm (5' 9.69). Weight as of this encounter: 104.3 kg (229 lb 15 oz). Anton Body Weight: 74.6 kg Usual Body Weight: 235 lbs per pt Wt Readings from Last 10 Encounters: 10/24/21 104.3 kg (229 lb 15 oz) 10/15/21 107.8 kg (237 lb 9.6 oz) 10/04/21 107.2 kg (236 lb 6.4 oz) 09/27/21 109 kg (240 lb 6.4 oz) 09/16/21 105.9 kg (233 lb 6.4 oz) 09/12/21 106.6 kg (235 lb) 09/09/21 102.8 kg (226 lb 9.6 oz) 09/05/21 106.8 kg (235 lb 6.4 oz) 08/26/21 102.8 kg (226 lb 9.6 oz) 08/19/21 100.2 kg (221 lb) Patient Vitals for the past 168 hrs: Weight 10/24/21 0316 104.3 kg (229 lb 15 oz) 10/23/21 1531 105.6 kg (232 lb 12.9 oz) 10/23/21 0410 106.5 kg (234 lb 12.6 oz) 10/22/21 1627 107.3 kg (236 lb 8.9 oz) 10/22/21 0314 105.3 kg (232 lb 2.3 oz) 10/21/21 1508 106.1 kg (233 lb 14.5 oz) 10/21/21 0435 105 kg (231 lb 7.7 oz) 10/20/21 1653 105.4 kg (232 lb 5.8 oz) 10/20/21 0404 106.1 kg (233 lb 14.5 oz) 10/19/21 1656 107.9 kg (237 lb 14 oz) 10/19/21 0352 107.8 kg (237 lb 10.5 oz) 10/18/21 1526 109 kg (240 lb 4.8 oz) 10/18/21 0118 110.1 kg (242 lb 11.6 oz) 10/17/21 1518 111.2 kg (245 lb 2.4 oz) Assessment: Estimated needs: Calories: 1865 (25 kcal/kg IBW) Protein: 89-112 grams (1.2-1.5 g/kg IBW) Nutrition Focused Physical Exam (NFPE): Not performed Nutrition intake and intake history/Interview: Luis Manuel reported a decrease in his appetite since infusion. He is not experiencing nausea, abdominal pain, or mouth soreness. Encouraged patient to try a little of each meal to improve po intake. Patient agreeable to adding fruit and blueberry spanish yogurt as snacks 2/day to meal plan. Wt is continuing to trend down, will continue to monitor. 10/21: Luis Manuel reported an improved appetite today, he reported over the weekend he felt fatigued and hada minimal appetite. He reported no po intake on Thursday and only ate mashed potatoes yesterday for dinner. Today, he ate 100% of breakfast (eggs, yogurt, and a v8) and almost 100% of lunch (soup and awrap). Pt w/snacks at bedside from visitors, declined additional snacks at this time. Encouraged good po intake. Wt trending down, below reported UBW, continue to monitor. 10/17: Luis Manuel reported a good appetite today and captain room service, remote mortgage underwriter ordered breakfast for pt. He normally eats 3 meals/day or has small, frequent meals. Reported no recent wt loss, had lost wt on previous admits and has been able to regain some wt. Declined snacks at this time. He doesn't consistently track ileostomy output at home but is familiar with foods to thicken output and his familiar w/diet. Pt reported he has Food Safety for People with Cancer booklet, reviewed higher/lower risk foods with pt, no questions at this time. Protein-calorie Malnutrition: Not enough data to assess (Cameron, JPDENISHA J Parenteral Enteral Nutr. 2011; 36(3): 273-83) Nutrition to continue to follow up while inpatient Thank you, Caridad Patricia Stacy Marin MD - 10/24/2021 7:28 AM EST Images from the original note were not included. Inpatient Hematology/Oncology/SCT Progress Note Patient info: Name: Luis Manuel Mobley Jr. : 1960 PCP: LEISA Munguia PCP phone number: [phone] Date of Admission: 10/15/2021 ( Hospital Day 9 days ) Service: Hem/Onc Team A pg [id number] (09/03) Responsible Attending:Sona Freitas MD ID: Luis Manuel Mobley Jr. is a 61 y.o. Male with hx of paroxysmal Afib, c diff colitis c/b toxic megacolon s/p bowel resection and colostomy in may 2021, FLT3+ AML with positive [employer] disease??s/p CR w/ 7+3+Midostaurin c/b relapse tx w ventoclax + gilteritinib (held since 10/08) most with pre-transplant BM and LP showing FELY, admitted for MUD allo HSCT.Today is day +2 (day 0 is 10/22). 24 Hour Events: - yesterday, gabapentin to 200mg TID - overnight, tachycardic 100s - 113 - This AM: reports feeling more energized compared to yesterday, no n/v, eating well - Weight 105.6kg -> 104.3kg - In/Out: Po 1180, net -646 Vitals: Last value Range last 24 hrs Temperature Temp: 36.5 ??C (97.7 ??F) Temp: [36.4 ??C (97.5 ??F)-37 ??C (98.6 ??F)] Heart Rate Heart Rate: (!) 103 Heart Rate: [97-103] Blood Pressure BP: 130/83 BP: (127-147)/(72-86) Respiratory Rate Resp: 22 Resp: [22-24] SpO2 SpO2: 98 % SpO2: [98 %-100 %] Intake/Output Summary (Last 24 hours) at 10/24/2021 0728 Last data filed at 10/24/2021 0634 Gross per 24 hour Intake 1829 ml Output 2475 ml Net -646 ml Patient Vitals for the past 168 hrs: Weight 10/24/21 0316 104.3 kg (229 lb 15 oz) 10/23/21 1531 105.6 kg (232 lb 12.9 oz) 10/23/21 0410 106.5 kg (234 lb 12.6 oz) 10/22/21 1627 107.3 kg (236 lb 8.9 oz) 10/22/21 0314 105.3 kg (232 lb 2.3 oz) 10/21/21 1508 106.1 kg (233 lb 14.5 oz) 10/21/21 0435 105 kg (231 lb 7.7 oz) 10/20/21 1653 105.4 kg (232 lb 5.8 oz) 10/20/21 0404 106.1 kg (233 lb 14.5 oz) 10/19/21 165 107.9 kg (237 lb 14 oz) 10/19/21 0352 107.8 kg (237 lb 10.5 oz) 10/18/21 1526 109 kg (240 lb 4.8 oz) 10/18/21 0118 110.1 kg (242 lb 11.6 oz) 10/17/21 1518 111.2 kg (245 lb 2.4 oz) Exam: GENERAL:?appeared in no acute distress, eating breakfast CARDIOVASCULAR:??rrr no mrg PULMONARY:??CTAB on RA, no increased wob GASTROINTESTINAL:??Abdomen soft nontender to palpation w +BS. Colostomy with watery stool in place. SKIN:??No rashes, bruises or petechiae. ?? EXT: no Edema at ankles NEUROLOGICAL:??Alert and oriented to person, place and time. No focal deficits Medications: Scheduled Meds: ??? gabapentin 200 mg Oral TID ??? ceFEPime 2 g Intravenous Q8H ??? sodium chloride 0.9 % (flush) 5 mL Intravenous BID ??? metoprolol tartrate 12.5 mg Oral Q6H PIERCE ??? vancomycin 125 mg Oral BID ??? flecainide 50 mg Oral BID ??? pantoprazole EC 40 mg Oral Daily ??? supersaturated calcium phosphate 30 mL Oral 4 Times Daily ??? fluconazole 400 mg Oral Daily ??? acyclovir 800 mg Oral BID ??? [START ON 11/21/2021] sulfamethoxazole-trimethoprim DS 1 tablet Oral Daily ??? tacrolimus 0.03 mg/kg/dose (Treatment Plan Adjusted) Oral 2 times per day ??? ursodioL 300 mg Oral Daily with breakfast ??? ursodioL 600 mg Oral Daily with dinner ??? [START ON 10/25/2021] metHOTREXate (PF) 5 mg/m2/dose (Treatment Plan Adjusted) Intravenous Once ??? [START ON 10/28/2021] metHOTREXate (PF) 5 mg/m2/dose (Treatment Plan Adjusted) Intravenous Once ??? [START ON 11/02/2021] metHOTREXate (PF) 5 mg/m2/dose (Treatment Plan Adjusted) Intravenous Once ??? [START ON 10/29/2021] filgrastim-sndz 600 mcg Subcutaneous Daily ??? enoxaparin 100 mg Subcutaneous Daily Continuous Infusions: PRN Meds:.loperamide, furosemide, furosemide, sodium chloride 0.9 % (flush), lidocaine, LORazepam, ondansetron, prochlorperazine, potassium chloride ER, potassium chloride ER, potassium chloride, magnesium sulfate, magnesium sulfate, potassium phosphate, potassium phosphate, heparin, porcine, sodium chloride 0.9 % (flush) Labs: Recent Labs 10/24/2131510/23/21 04010/22/21 031 WBC 1.6* 1.8* 0.7* HGB 6.6* 7.0* 7.3* HCT 19.0* 20.7* 21.8* PLATELET 30* 44* 59* NEUTROABS 1.50* 1.77 0.57* Recent Labs 10/24/2131510/23/21 04010/22/21312 NA 137 134* 138 K 4.0 4.6 3.9 CL 110* 112* 111* CO2 17* 13* 16* BUN 24* 26* 34* CREATININE 1.06 1.14 1.09 Recent Labs 10/24/2131510/23/21 0405 10/22/21 031 CALCIUM 8.7 8.4* 8.4* MAGNESIUM 0.78 0.76 0.89 PHOS 3.4 2.5 3.1 Recent Labs 10/24/2131510/23/21 0405 10/21/21 0445 AST 16 21 26 ALT 28 22 34 ALKPHOS 70 68 59 BILITOT 0.3 0.3 0.4 BILIDIR 0.1 0.1 0.1 No results for input(s): INR, PT, PTT in the last 72 hours. Microbiology: BCx 10/20: NGTD UA 10/20: does not look infectious Microbiology Results (Last 30 days) Procedure Component Value Units Date/Time Blood culture [[id number]] Collected: 10/20/211731 Lab Status: Preliminary result Specimen: Blood Updated: 10/23/212300 Blood Culture No growth at 3 days. Blood culture [[id number]] Collected: 10/20/211731 Lab Status: Preliminary result Specimen: Blood Updated: 10/23/212300 Blood Culture No growth at 3 days. Blood culture [[id number]] Collected: 10/19/21 1139 Lab Status: Preliminary result Specimen: Blood from Antecubital, Left Updated: 10/23/21 1501 Blood Culture No growth at 4 days. Blood culture [[id number]] (Abnormal) Collected: 10/19/21 1133 Lab Status: Preliminary result Specimen: Blood from Hand, Right Updated: 10/20/21 1441 Blood Culture -- Coagulase negative Staphylococcus species detected by PCR Interpretation of the importance of skin mitzy such as Coagulase Negative Staph, Viridans Strep, Corynebacteria and other Gram Positive organisms from a single Blood Culture set requires clinical correlation. Gram Stain Aerobic -- Growth detected in aerobic bottle. Gram Positive Cocci in clusters seen C. Difficile Screen [[id number]] Collected: 10/19/21 1020 Lab Status: Final result Specimen: Stool Updated: 10/19/21 1607 C Diff Screen Negative Comment: Ag/Tox Neg C. diff?? Negative Clostridium difficile is not present in the specimen. If patient is having diarrhea suspected to be from an infectious cause, then Soap & Water Contact Precautions are still required. COVID-19 PCR [[id number]] Collected: 10/19/21 0405 Lab Status: Final result Specimen: Nasopharyngeal Swab Updated: 10/19/21 1834 SARS-CoV-2 RNA Not Detected Comment: This result should be interpreted in combination with the clinical observations, patient history and epidemiological information in making a final diagnosis. For testing of asymptomatic individuals, assay performance characteristics and clinical utility have not been evaluated. Testing for SARS-CoV-2 (Severe acute respiratory syndrome coronavirus 2, formerly known as 2019 novel coronavirus or 2019-nCoV) to aid in the diagnosis of COVID-19 is performed using the [employer] SARS-CoV-2 Assay as authorized by the FDA Emergency Use Authorization (EUA). This EUA assay is intended for In-vitro Diagnostic (IVD) use with respiratory specimens such as nasopharyngeal swabs collected from individuals during the acute phase of infection. This assay is performed based on the instructions for use provided by [employer] and additional guidance provided by CDC and FDA. Testing is performed in the [facility] within the Department of Pathology and Laboratory Medicine at [facility], certified under the Clinical Laboratory Improvement Amendments of 1988 (CLIA), 42 U.S.C. 263a, to perform high complexity tests. Assay performance has been verified according to clinical laboratory regulatory requirements for use with specimens collected from individuals suspected of COVID-19. Test results are provided above. A result of Not Detected indicates that the viral RNA target is not present above the limit of detection, but does not preclude SARS-CoV-2 infection. False negative results may occur if a specimen is improperly collected, transported or handled; if amplification inhibitors are present; or if inadequate numbers of viral particles are present in the specimen. When a diagnostic test is negative, the possibility of a false negative result should be considered in the context of a patient's recent exposures and the presence of clinical signs and symptoms consistent with COVID-19. A result of Detected indicates that RNA from SARS-CoV-2 was detected and the patient is infected. As required or requested by public health authorities, positive specimens may be sent for additional testing. Positive and negative predictive values for this test are highly dependent on disease prevalence. A result of Invalid indicates that neither the viral RNA targets nor the internal control target was detected. An invalid result suggests the presence of inhibitors. Recollection and re-testing is recommended in the case of an invalid result. CDC COVID-19 criteria for testing on human specimens and clinical management guidance information are available at the CDC Coronavirus Disease 2019 (COVID-19) webpage under Information for Healthcare Professionals (https://www.cdc.gov/coronavirus/2019-ncov/hcp/index.html) Additional information about this and other EUA tests can be found in provider and patient fact sheets at the following FDA website: https://www.fda.gov/medical-devices/hmqlckuqaef-uhwirji-7154-uxcri-85-dxivczxpo- whz-bdlclifqyiyzfj-lbfspfc-devices/yzioo-bkixofiuvuq-mngo SARS-Cov-2 RNA Source ULTRASOUND SPEC Swab COVID-19 PCR [[id number]] Collected: 10/15/212032 Lab Status: Final result Specimen: Nasopharyngeal Swab Updated: 10/16/21 0004 SARS-CoV-2 RNA PCR Not Detected Comment: This result should be interpreted in combination with the clinical observations, patient history and epidemiological information. For testing of asymptomatic individuals, assay performance characteristics and clinical utility have not been evaluated. Testing for SARS-CoV-2 (Severe acute respiratory syndrome coronavirus 2, formerly known as 2019 novel coronavirus or 2019-nCoV) to aid in the diagnosis of COVID-19 is performed using the [employer] COVID-19 Direct Assay by [employer] as authorized by the FDA issued Emergency Use Authorization (EUA). This assay is intended for In-vitro Diagnostic (IVD) use with nasopharyngeal swabs collected from individuals meeting the CDC criteria for testing. The assay is performed based on the instructions for use and additional guidance provided by the FDA. Testing is performed in the Microbiology Laboratory within the Department of Pathology and Laboratory Medicine at [facility], certified under the Clinical Laboratory Improvement Amendments of 1988 (CLIA), 42 U.S.C. section 263a, to perform high complexity tests. Assay performance has been verified according to clinical laboratory regulatory requirements. Test results are provided above. A result of Not Detected indicates that the viral RNA target is not present but does not preclude SARS-CoV-2 infection. False negative results may occur if a specimen is improperly collected, transported or handled; if amplification inhibitors are present; or if inadequate numbers of viral particles are present in the specimen. A result of Detected suggests a current or recent infection and the patient is presumed to be infected. Positive and negative predictive values for this test are highly dependent on disease prevalence. A result of Invalid indicates the inability to conclusively determine the presence or absence of SARS-CoV-2 RNA in the sample which can be due to a variety of factors. Recollection is recommended in the case of an invalid result. CDC COVID-19 criteria for testing on human specimens and clinical management guidance information are available at the CDC Coronavirus Disease 2019 (COVID-19) webpage under Information for Healthcare Professionals (https://www.cdc.gov/coronavirus/2019-ncov/hcp/index.html). Additional information about this and other EUA tests can be found in provider and patient fact sheets at the following FDA website: https://www.fda.gov/medical-devices/fcgelkfqoon-ovnfvrh-4288-dnsxf-27-tupnwtypf- svb-drzrgzyponyfog-fswklre-devices/eavxf-grpyyferape-ubow SARS-CoV-2 Source ULTRASOUND SPEC Swab Pertinent radiology/diagnostic studies: ASSESSMENT/PLAN: Luis Manuel Mobley Jr. is a 61 y.o. 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 now day +2 (day 0 is 10/22) for MUD HSCT. Patient has been afebrile for the last several days. Infectious workup remains negative. Tolerated stem cell infusion well on 10/22, had some rigors and nausea post-infusion that resolved with medications. Counts dropping as expected today. Continue cefepime due to high risk of infection given HSCT status. For his bilateral feet neuropathy, will continue gabapentin to 200mt TID. Summary Plan: - 1u pRBCs for Hgb 6.6 - change lovenox to ppx 40mg since platelet < 40K - continue gabapentin to 200mg TID - continue cefepime - monitor I/O and daily weights ?? Plan: #AML #MUD HSCT Day (-7): Fludarabine: Day (-6): Fludarabine, Busulfan, Rabbit ATG: Day (-5): Fludarabine, Busulfan, Rabbit ATG: Day (-4): Fludarabine, Busulfan, Rabbit ATG: Day (-3): Fludarabine, Busulfan: Day (0): Stem Cell Infusion: Day (+1): metHOTREXate: Day (+3): metHOTREXate: Day (+6): metHOTREXate: Day (+11): metHOTREXate: General - q4h vitals - strict Is/Os 2x daily - weigh patient 2x daily, notify provider if weight increases by 1kg or more in 12 hour period ?- lasix 20mg IV prn weight gain >1 kg above admission baseline ?- lasix 20mg IV for weight gain 1 kg over 12 hours or input exceeding output by greater than 1,000 ml/12h - neutropenic precautions - incentive spirometry q2h while awake - activity as tolerated - electrolyte replacement Chemotherapy/Support - Busulfan 204mg??day (-6) to day (-3) -??Fludarabine??61??mg 102ml infusion once over 30 minutes day -7 Then every 24 hours at 0900 for 4 doses day (-6) to day (-3) - Rabbit ATG??124.8mg over 10 hours day (-6), 166.4mg on day (-5) 208??on day (-4).?? - Day 0 stem cell infusion. Premedicate with acetaminophen 650mg, diphenhydramine 50mg) - Methotrexate??10mg??day (+1), day (+3), day (+6), day (+11). Hold for serum creatinine >2, bilirubin >5, fluid accumulation (large effusion or ascites), severe mucositis if potential need for intubation. - filgrastim??600mcg qd starting day (+7) until ANC >1500 ?? Laboratory Monitoring - weekly CMV PCR starting day +10, then weekly thereafter - IgG every 2 weeks starting day +1 to day +100 - U/A s/ reflex culture on admission, then daily on days -2, -1, 0? Transfusion parameters - Hgb <??6.5 - PLT <10, or if febrile??or bleeding??<20 - keep active T&S once hgb <8 ?? Prophylaxis Seizure ppx ?-phenytoin 300 day (-6) through (-1) - GI ppx ?- pantoprazole 40mg qd - mucositis ppx ?- supersaturated calcium phosphate oral solution 30ml 4x daily starting on admission until resolution of mucositis and ANC ?>500 - infection ppx ?- fluconazole 400mg qd starting day (0) ?- levofloxacin 750mg qd starting day (0) until ANC >500, changed tocefepime due to fever on 10/19 ?- acyclovir 800mg bid starting day (-7) ?- bactrim DS 1 tablet daily from day (-7) through day (-2) ?- bactrim DS 1 tablet MWF starting day (30) - GVHD ppx?-??Tacrolimus??1.5mg BID??starting day (- 2)?target 5-10 trough - VOD ppx ?- lovenox 40mg qd day (-7) through (30) per Dr. Modi's note, he should continue lovenox 100mg qd until plt apx <40 then switch to VOD ppx dose. ?- ursodiol 300mg qAM??&??qPM day (-7) through day (+30) Hydration - NaCl 0.9% continuous??150ml/hr x??day (-6) ??Through (-3) ?? Pain/Nausea/Appetite - avoid acetaminophen through??day??(-3) - avoid steroid antiemetics - palonosetron 0.25mg day (-6) - aprepitant 130mg day (-6) prior to??busulfan - lorazepam 0.5mg IV q4h prn nausea, anxiety - ondansetron??8mg q8h prn nausea, vomiting beginning day (-3) - prochlorperazine 10mg IV q6h prn nausea, vomiting - use ondansetron >??prochlorperazine or promethazine >??lorazepam >??metoclopramide - olanzapine 5mg qhs starting day (-3) for 5 doses? #Fever #possible coag negative staph bacteremia - 102.9 10/19 - C. Diff negative - UA unremarkable - BCx 10/20 negative - starting cefepime 10/19 - p - start vanc 10/20 - 10/22 #Paroxysmal Afib - Continue home metoprolol (convert to tartrate), flecainide ?? #Hx of provoked PE in Apr 2021 - On lovenox 100mg qd (held prior to central line placement) - Continue until plt reach approximately 40 followed by switch to prophylactic dosing. ?? #Hx of C diff colitis - Continue home PO vancomycin - Ostomy care #Bilateral Feet tingling - pt reports having baseline bilateral feet tingling that was noted to be worsened on on 10/21 (2 daysafter completing 5 days of fludarabine), strength intact, no loss of sensation - start gabapentin 100mg TID (10/21 - 10/23), 200mg TID (10/23 - ) ?? #Routine DVT PPx: VOD ppx lovenox 40mg b/c platelet < 40 (holding home dose 100mg) Diet: Neutropenic (BMT) diet Dispo: 1-[place] CODE STATUS: Attempt Cardiopulmonary Resuscitation - Inpatient Stacy Marin MD PGY1 Internal Medicine 10/24/2021 Heme/Onc/BMT Team A Pager #[phone] Associated attestation - Sona Freitas MD - 10/24/2021 12:40 PM EST Hematology Inpatient Staff Addendum I have seen and examined this patient, reviewed all clinical, laboratory and radiographic data and discussed the case in detail with the housestaff. I agree with the findings, assessment and plan as outlined in today's housestaff note, with any additions or changes included below. Luis Manuel Mobley . is a 61 y.o. male with high-risk (FLT3+) AML adm???d on 10/15 for MTD-Cspy-KRG via Flu/Bu/ATG regimen. Course marked by dev't of C difficile colitis with toxic megacolon requiring cmk-rroou-zxoqveawo, with ostomy, then dev't of 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 Day +2 today Heme Zarxio support to start on Day +7 ID Acyclovir and fluconazole ppx Cefepime for previous neutropenic fever Oral vanco ppx GVHD Tacrolimus 2.5 mg BID Started on Day -2 GI Course complicated by diarrhea from ostomy Negative for C.diff PRN loperamide VOD ppx Ursodiol and lovenox SONA FREITAS MD Pager [phone] Dept of Hematology Central Venous Access Statement of Need Can the central IV access be removed? [ ] Yes [x] No [ ] N/A If no, reason for central access: [ ] TPN ] Chemotherapy [ ] IV Antibiotics [ ] Vasoactive medication [ ] Vesicant medication [ ] Active resuscitation with fluid or blood products [ ] Poor vascular access as determined by vascular access [x ] Stem cell transplant patient or AML induction [ ] Other: SONA FREITAS MD Pager [phone] Dept of Hematology Martha Pelayo RN - 10/24/2021 4:59 AM EST Patient Summary Reason for admission: Day +2 (10/24) of MUD alloSCT for AML conditioned with Flu/Bu/ATG/MTX Relevant PMH: s/p bowel resection/colectomy d/t toxic megacolon, Cdiff, Bilateral PE, hx paroxysmal AFIB OUTCOME EVALUATION NOTE: OUTCOME SUMMARY: Afebrile, intermittently tachy up to 110's. C/o fatigue but denies pain, SOB, N/V. Declined milkshake, ate applesauce with pills. Methotrexate push administered per regimen, cefepime administered per OCT. Stool heme negative, urine heme positive. IV K infusing. Resting between care. PLAN MOVING FORWARD: When plts <40 switch to 40mg lovenox - PLTs 30 Monitor fevers - last blood culture 10/20 173 Ostomy care, monitor output - PRN imodium Encourage ambulation as tolerated, PO intake Continue IV antibiotics - cefepime INDIVIDUALIZED FALL PREVENTION INTERVENTIONS: Patient-specific fall risk factors per assessment: [current deficits]: High fall risk d/t IV therapy, secondary diagnosis, generalized weakness Assistance [level of assistance required for transfers and ambulation]: IND (BA refusal) Supervision [direct monitoring required during toileting and ADLs]: IND Surveillance [continuous indirect monitoring]: Masimo, bed alarm refusal, room near unit station, call light within reach, purposeful hourly rounding Patient-specific fall prevention interventions for sensory deficits provided, if applicable: CPG GOAL OUTCOME EVALUATION: Denise Zapata RN - 10/23/2021 3:57 PM EST Illness Severity [x] Stable [] Watcher [] Unstable Patient Summary Reason for admission: Day +1 (10/23) of MUD alloSCT for AML conditioned with Flu/Bu/ATG/MTX Relevant PMH: s/p bowel resection/colectomy d/t toxic megacolon, Cdiff, Bilateral PE, hx paroxysmal AFIB Significant 24 hour events: 10/23 AM: Afebrile. Tachy into the 120's w/ exertion. High output bag in place, ~ 600 stool output today. Showered and ambulated. Tolerated a milkshake. Comp and zofran given x1 for nausea w/ + effect. 3PM: Afebrile, intermittently tachy up to 108. Very fatigued but denies pain, SOB, N/V. Cefepime administered per OCT. Urine and stool heme negative. K phos infusing. Resting between care. Chemo plan & supportive medication: Fludarabine/ Busulfan/ATG/MTX Baseline Weight: 107.1 kg AM weight: 105.6 (10/23) PM weight: 107.3 kg Action List Monitor fevers - last blood culture 10/21 1731 Ostomy care, monitor output - PRN imodium Encourage ambulation as tolerated, PO intake Continue IV antibiotics - cefepime When plts <40 switch to 40mg lovenox (on 100 now) Evelina Jacobo - 10/23/2021 12:57 PM EST Reiki session given by Aniya Eisenberg volunteer. Prior to session fatigue rated 10/10;after session 6/10. Luis Manuel appreciative, stating Very nice. [employer] [employer] Team will continue to try and see 2-3x/week. Reiki session also given to support person, Kit, who was also very appreciative. Stacy Marin MD - 10/23/2021 7:30 AM EST Images from the original note were not included. Inpatient Hematology/Oncology/SCT Progress Note Patient info: Name: Luis Manuel Mobley Jr. : 1960 PCP: LEISA Munguia PCP phone number: [phone] Date of Admission: 10/15/2021 ( Hospital Day 8 days ) Service: Hem/Onc Team A pg [id number] (09/03) Responsible Attending:Sona Freitas MD ID: Luis Manuel Mobley Jr. is a 61 y.o. Male with hx of paroxysmal Afib, c diff colitis c/b toxic megacolon s/p bowel resection and colostomy in may 2021, FLT3+ AML with positive [employer] disease??s/p CR w/ 7+3+Midostaurin c/b relapse tx w ventoclax + gilteritinib (held since 10/08) most with pre-transplant BM and LP showing FELY, admitted for MUD allo HSCT.Today is day +1 (day 0 is 10/22) 24 Hour Events: - Yesterday, got stem cell infusion, VSS, post infusion some rigors and nausea, got 25mg of demerol and zofran, symptoms resolved - Overnight, feeling fatigued, intermittently tachy up to 108 - Weight 107.3kg -> 106.5kg - I/O: + 2L (po intake of 1.7L) - counts improving Vitals: Last value Range last 24 hrs Temperature Temp: 36.9 ??C (98.4 ??F) Temp: [36.2 ??C (97.2 ??F)-37.1 ??C (98.8 ??F)] Heart Rate Heart Rate: 100 Heart Rate: [98-100] Blood Pressure BP: 147/89 BP: (99-147)/(51-90) Respiratory Rate Resp: 25 Resp: [20-28] SpO2 SpO2: 97 % SpO2: [95 %-100 %] Intake/Output Summary (Last 24 hours) at 10/23/2021 0730 Last data filed at 10/23/2021 0700 Gross per 24 hour Intake 5071 ml Output 3025 ml Net 2046 ml Patient Vitals for the past 168 hrs: Weight 10/23/21 0410 106.5 kg (234 lb 12.6 oz) 10/22/21 1627 107.3 kg (236 lb 8.9 oz) 10/22/21 0314 105.3 kg (232 lb 2.3 oz) 10/21/21 1508 106.1 kg (233 lb 14.5 oz) 10/21/21 0435 105 kg (231 lb 7.7 oz) 10/20/21 1653 105.4 kg (232 lb 5.8 oz) 10/20/21 0404 106.1 kg (233 lb 14.5 oz) 10/19/21 1656 107.9 kg (237 lb 14 oz) 10/19/21 0352 107.8 kg (237 lb 10.5 oz) 10/18/21 1526 109 kg (240 lb 4.8 oz) 10/18/21 0118 110.1 kg (242 lb 11.6 oz) 10/17/21 1518 111.2 kg (245 lb 2.4 oz) 10/17/21 0320 109.5 kg (241 lb 6.5 oz) 10/16/21 1521 107.8 kg (237 lb 10.5 oz) Exam: GENERAL:?appeared in no acute distress, eating breakfast CARDIOVASCULAR:??rrr no mrg PULMONARY:??CTAB on RA, no increased wob GASTROINTESTINAL:??Abdomen soft nontender to palpation w +BS. Colostomy with watery stool in place. SKIN:??No rashes, bruises or petechiae. ?? EXT: no Edema at ankles NEUROLOGICAL:??Alert and oriented to person, place and time. No focal deficits Medications: Scheduled Meds: ??? gabapentin 100 mg Oral TID ??? ceFEPime 2 g Intravenous Q8H ??? sodium chloride 0.9 % (flush) 5 mL Intravenous BID ??? metoprolol tartrate 12.5 mg Oral Q6H PIERCE ??? vancomycin 125 mg Oral BID ??? flecainide 50 mg Oral BID ??? pantoprazole EC 40 mg Oral Daily ??? supersaturated calcium phosphate 30 mL Oral 4 Times Daily ??? fluconazole 400 mg Oral Daily ??? acyclovir 800 mg Oral BID ??? [START ON 11/21/2021] sulfamethoxazole-trimethoprim DS 1 tablet Oral Daily ??? tacrolimus 0.03 mg/kg/dose (Treatment Plan Adjusted) Oral 2 times per day ??? ursodioL 300 mg Oral Daily with breakfast ??? ursodioL 600 mg Oral Daily with dinner ??? metHOTREXate (PF) 5 mg/m2/dose (Treatment Plan Adjusted) Intravenous Once ??? [START ON 10/25/2021] metHOTREXate (PF) 5 mg/m2/dose (Treatment Plan Adjusted) Intravenous Once ??? [START ON 10/28/2021] metHOTREXate (PF) 5 mg/m2/dose (Treatment Plan Adjusted) Intravenous Once ??? [START ON 11/02/2021] metHOTREXate (PF) 5 mg/m2/dose (Treatment Plan Adjusted) Intravenous Once ??? [START ON 10/29/2021] filgrastim-sndz 600 mcg Subcutaneous Daily ??? enoxaparin 100 mg Subcutaneous Daily Continuous Infusions: PRN Meds:.loperamide, furosemide, furosemide, sodium chloride 0.9 % (flush), lidocaine, LORazepam, ondansetron, prochlorperazine, potassium chloride ER, potassium chloride ER, potassium chloride, magnesium sulfate, magnesium sulfate, potassium phosphate, potassium phosphate, heparin, porcine, sodium chloride 0.9 % (flush) Labs: Recent Labs 10/23/21 0405 10/22/21 0313 10/20/21 0350 10/18/21 0455 WBC 1.8* 0.7* 1.2* 3.8* HGB 7.0* 7.3* 9.4* 8.7* HCT 20.7* 21.8* 28.5* 26.2* PLATELET 44* 59* 80* 85* NEUTROABS 1.77 0.57* -- 3.57 Recent Labs 10/23/21 0405 10/22/21 0313 10/21/21 0445 NA 134* 138 138 K 4.6 3.9 3.7 CL 112* 111* 107 CO2 13* 16* 16* BUN 26* 34* 31* CREATININE 1.14 1.09 1.01 Recent Labs 10/23/21 0405 10/22/21 0313 10/21/21 0445 CALCIUM 8.4* 8.4* 8.6 MAGNESIUM 0.76 0.89 1.04 PHOS 2.5 3.1 2.8 Recent Labs 10/23/21 0405 10/21/21 0445 10/17/21 0310 AST 21 26 30 ALT 22 34 32 ALKPHOS 68 59 87 BILITOT 0.3 0.4 <0.2* BILIDIR 0.1 0.1 <0.1 No results for input(s): INR, PT, PTT in the last 72 hours. Microbiology: BCx 10/20: NGTD UA 10/20: does not look infectious Microbiology Results (Last 30 days) Procedure Component Value Units Date/Time Blood culture [[id number]] Collected: 10/20/211731 Lab Status: Preliminary result Specimen: Blood Updated: 10/22/21 2301 Blood Culture No growth at 2 days. Blood culture [[id number]] Collected: 10/20/21 173 Lab Status: Preliminary result Specimen: Blood Updated: 10/22/21 2301 Blood Culture No growth at 2 days. Blood culture [[id number]] Collected: 10/19/21 1139 Lab Status: Preliminary result Specimen: Blood from Antecubital, Left Updated: 10/22/21 1501 Blood Culture No growth at 3 days. Blood culture [[id number]] (Abnormal) Collected: 10/19/21 1133 Lab Status: Preliminary result Specimen: Blood from Hand, Right Updated: 10/20/21 1441 Blood Culture -- Coagulase negative Staphylococcus species detected by PCR Interpretation of the importance of skin mitzy such as Coagulase Negative Staph, Viridans Strep, Corynebacteria and other Gram Positive organisms from a single Blood Culture set requires clinical correlation. Gram Stain Aerobic -- Growth detected in aerobic bottle. Gram Positive Cocci in clusters seen C. Difficile Screen [[id number]] Collected: 10/19/21 1020 Lab Status: Final result Specimen: Stool Updated: 10/19/21 1607 C Diff Screen Negative Comment: Ag/Tox Neg C. diff?? Negative Clostridium difficile is not present in the specimen. If patient is having diarrhea suspected to be from an infectious cause, then Soap & Water Contact Precautions are still required. COVID-19 PCR [[id number]] Collected: 10/19/21 0405 Lab Status: Final result Specimen: Nasopharyngeal Swab Updated: 10/19/21 1834 SARS-CoV-2 RNA Not Detected Comment: This result should be interpreted in combination with the clinical observations, patient history and epidemiological information in making a final diagnosis. For testing of asymptomatic individuals, assay performance characteristics and clinical utility have not been evaluated. Testing for SARS-CoV-2 (Severe acute respiratory syndrome coronavirus 2, formerly known as 2019 novel coronavirus or 2019-nCoV) to aid in the diagnosis of COVID-19 is performed using the [employer] m SARS-CoV-2 Assay as authorized by the FDA Emergency Use Authorization (EUA). This EUA assay is intended for In-vitro Diagnostic (IVD) use with respiratory specimens such as nasopharyngeal swabs collected from individuals during the acute phase of infection. This assay is performed based on the instructions for use provided by [employer] and additional guidance provided by CDC and FDA. Testing is performed in the [facility] within the Department of Pathology and Laboratory Medicine at [facility], certified under the Clinical Laboratory Improvement Amendments of 1988 (CLIA), 42 U.S.C. 263a, to perform high complexity tests. Assay performance has been verified according to clinical laboratory regulatory requirements for use with specimens collected from individuals suspected of COVID-19. Test results are provided above. A result of Not Detected indicates that the viral RNA target is not present above the limit of detection, but does not preclude SARS-CoV-2 infection. False negative results may occur if a specimen is improperly collected, transported or handled; if amplification inhibitors are present; or if inadequate numbers of viral particles are present in the specimen. When a diagnostic test is negative, the possibility of a false negative result should be considered in the context of a patient's recent exposures and the presence of clinical signs and symptoms consistent with COVID-19. A result of Detected indicates that RNA from SARS-CoV-2 was detected and the patient is infected. As required or requested by public health authorities, positive specimens may be sent for additional testing. Positive and negative predictive values for this test are highly dependent on disease prevalence. A result of Invalid indicates that neither the viral RNA targets nor the internal control target was detected. An invalid result suggests the presence of inhibitors. Recollection and re-testing is recommended in the case of an invalid result. CDC COVID-19 criteria for testing on human specimens and clinical management guidance information are available at the CDC Coronavirus Disease 2019 (COVID-19) webpage under Information for Healthcare Professionals (https://www.cdc.gov/coronavirus/2019-ncov/hcp/index.html) Additional information about this and other EUA tests can be found in provider and patient fact sheets at the following FDA website: https://www.fda.gov/medical-devices/eybyzefnwsq-hqeyncr-4000-uhmvj-49-jajwrjkjl- dvf-tfwncifblqkopk-jhdioyo-devices/iwobn-fohpsdhfrij-wooe SARS-Cov-2 RNA Source ULTRASOUND SPEC Swab COVID-19 PCR [[id number]] Collected: 10/15/212032 Lab Status: Final result Specimen: Nasopharyngeal Swab Updated: 10/16/21 0004 SARS-CoV-2 RNA PCR Not Detected Comment: This result should be interpreted in combination with the clinical observations, patient history and epidemiological information. For testing of asymptomatic individuals, assay performance characteristics and clinical utility have not been evaluated. Testing for SARS-CoV-2 (Severe acute respiratory syndrome coronavirus 2, formerly known as 2019 novel coronavirus or 2019-nCoV) to aid in the diagnosis of COVID-19 is performed using the [employer] COVID-19 Direct Assay by [employer] as authorized by the FDA issued Emergency Use Authorization (EUA). This assay is intended for In-vitro Diagnostic (IVD) use with nasopharyngeal swabs collected from individuals meeting the CDC criteria for testing. The assay is performed based on the instructions for use and additional guidance provided by the FDA. Testing is performed in the Microbiology Laboratory within the Department of Pathology and Laboratory Medicine at [facility], certified under the Clinical Laboratory Improvement Amendments of 1988 (CLIA), 42 U.S.C. section 263a, to perform high complexity tests. Assay performance has been verified according to clinical laboratory regulatory requirements. Test results are provided above. A result of Not Detected indicates that the viral RNA target is not present but does not preclude SARS-CoV-2 infection. False negative results may occur if a specimen is improperly collected, transported or handled; if amplification inhibitors are present; or if inadequate numbers of viral particles are present in the specimen. A result of Detected suggests a current or recent infection and the patient is presumed to be infected. Positive and negative predictive values for this test are highly dependent on disease prevalence. A result of Invalid indicates the inability to conclusively determine the presence or absence of SARS-CoV-2 RNA in the sample which can be due to a variety of factors. Recollection is recommended in the case of an invalid result. CDC COVID-19 criteria for testing on human specimens and clinical management guidance information are available at the CDC Coronavirus Disease 2019 (COVID-19) webpage under Information for Healthcare Professionals (https://www.cdc.gov/coronavirus/2019-ncov/hcp/index.html). Additional information about this and other EUA tests can be found in provider and patient fact sheets at the following FDA website: https://www.fda.gov/medical-devices/lurmzdxkfam-ycyxlhw-7575-jsyzm-64-oxcutvmjq- nkm-xywicvrchslbus-ygohdxy-devices/gxffp-qykxwxfhlry-mzas SARS-CoV-2 Source ULTRASOUND SPEC Swab Pertinent radiology/diagnostic studies: ASSESSMENT/PLAN: Luis Manuel Mobley Jr. is a 61 y.o. 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 now day +1 (day 0 is 10/22) for MUD HSCT. Patient has been afebrile for the last three days. Infectious workup remains negative. Tolerated stem cell infusion well yesterday 10/22, had some rigors and nausea post-infusion that resolved with medications. Counts transiently increase today, but expecting to drop tomorrow. Continue cefepime due to high risk of infection given HSCT status. For his bilateral feet neuropathy, will increase gabapentin to 200mt TID. Summary Plan: - increase gabapentin to 200mg TID - continue cefepime - plan to decrease therapseutic lovenox to ppx once platelet < 40-50K (22 today) - monitor I/O and daily weights ?? Plan: #AML #MUD HSCT Day (-7): Fludarabine: Day (-6): Fludarabine, Busulfan, Rabbit ATG: Day (-5): Fludarabine, Busulfan, Rabbit ATG: Day (-4): Fludarabine, Busulfan, Rabbit ATG: Day (-3): Fludarabine, Busulfan: Day (0): Stem Cell Infusion: Day (+1): metHOTREXate: Day (+3): metHOTREXate: Day (+6): metHOTREXate: Day (+11): metHOTREXate: General - q4h vitals - strict Is/Os 2x daily - weigh patient 2x daily, notify provider if weight increases by 1kg or more in 12 hour period ?- lasix 20mg IV prn weight gain >1 kg above admission baseline ?- lasix 20mg IV for weight gain 1 kg over 12 hours or input exceeding output by greater than 1,000 ml/12h - neutropenic precautions - incentive spirometry q2h while awake - activity as tolerated - electrolyte replacement Chemotherapy/Support - Busulfan 204mg??day (-6) to day (-3) -??Fludarabine??61??mg 102ml infusion once over 30 minutes day -7 Then every 24 hours at 0900 for 4 doses day (-6) to day (-3) - Rabbit ATG??124.8mg over 10 hours day (-6), 166.4mg on day (-5) 208??on day (-4).?? - Day 0 stem cell infusion. Premedicate with acetaminophen 650mg, diphenhydramine 50mg) - Methotrexate??10mg??day (+1), day (+3), day (+6), day (+11). Hold for serum creatinine >2, bilirubin >5, fluid accumulation (large effusion or ascites), severe mucositis if potential need for intubation. - filgrastim??600mcg qd starting day (+7) until ANC >1500 ?? Laboratory Monitoring - weekly CMV PCR starting day +10, then weekly thereafter - IgG every 2 weeks starting day +1 to day +100 - U/A s/ reflex culture on admission, then daily on days -2, -1, 0? Transfusion parameters - Hgb <??7.0 - PLT <10, or if febrile??or bleeding??<20 - keep active T&S once hgb <8 ?? Prophylaxis Seizure ppx ?-phenytoin 300 day (-6) through (-1) - GI ppx ?- pantoprazole 40mg qd - mucositis ppx ?- supersaturated calcium phosphate oral solution 30ml 4x daily starting on admission until resolution of mucositis and ANC ?>500 - infection ppx ?- fluconazole 400mg qd starting day (0) ?- levofloxacin 750mg qd starting day (0) until ANC >500 ?- acyclovir 800mg bid starting day (-7) ?- bactrim DS 1 tablet daily from day (-7) through day (-2) ?- bactrim DS 1 tablet MWF starting day (+30) - GVHD ppx?-??Tacrolimus??1.5mg BID??starting day (- 2)?target 5-10 trough - VOD ppx ?- lovenox 40mg qd day (-7) through (+30) per Dr. Modi's note, he should continue lovenox 100mg qd until plt apx <40 then switch to VOD ppx dose. ?- ursodiol 300mg qAM??&??qPM day (-7) through day (+30) Hydration - NaCl 0.9% continuous??150ml/hr x??day (-6) ??Through (-3) ?? Pain/Nausea/Appetite - avoid acetaminophen through??day??(-3) - avoid steroid antiemetics - palonosetron 0.25mg day (-6) - aprepitant 130mg day (-6) prior to??busulfan - lorazepam 0.5mg IV q4h prn nausea, anxiety - ondansetron??8mg q8h prn nausea, vomiting beginning day (-3) - prochlorperazine 10mg IV q6h prn nausea, vomiting - use ondansetron >??prochlorperazine or promethazine >??lorazepam >??metoclopramide - olanzapine 5mg qhs starting day (-3) for 5 doses? #Fever #possible coag negative staph bacteremia - 102.9 10/19 - C. Diff negative - UA unremarkable - BCx 10/20 negative - starting cefepime 10/19 - p - start vanc 10/20 - 10/22 #Paroxysmal Afib - Continue home metoprolol (convert to tartrate), flecainide ?? #Hx of provoked PE in Apr 2021 - On lovenox 100mg qd (held prior to central line placement) - Continue until plt reach approximately 40 followed by switch to prophylactic dosing. ?? #Hx of C diff colitis - Continue home PO vancomycin - Ostomy care #Bilateral Feet tingling - pt reports having baseline bilateral feet tingling that was noted to be worsened on on 10/21 (2 daysafter completing 5 days of fludarabine), strength intact, no loss of sensation - start gabapentin 100mg TID (10/21 - 10/23), 200mg TID (10/23 - p) ?? #Routine DVT PPx: home lovenox 100mg qd until plt <40 then switch to VOD ppx dosing. Diet: Neutropenic (BMT) diet Dispo: 1-[place] CODE STATUS: Attempt Cardiopulmonary Resuscitation - Inpatient Stacy Marin MD PGY1 Internal Medicine 10/23/2021 Heme/Onc/BMT Team A Pager #[phone] Associated attestation - Sona Freitas MD - 10/24/2021 6:18 AM EST Hematology Inpatient Staff Addendum I have seen and examined this patient, reviewed all clinical, laboratory and radiographic data and discussed the case in detail with the housestaff. I agree with the findings, assessment and plan as outlined in today's housestaff note, with any additions or changes included below. Luis Manuel Mobley Jr. is a 61 y.o. male with high-risk (FLT3+) AML adm???d on 10/15 for DCK-Vsgb-GJF via Flu/Bu/ATG regimen. Course marked by dev't of C difficile colitis with toxic megacolon requiring kko-jtmdi-cfaddknol, with ostomy, then dev't of 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 Day +1 today Heme Zarxio support to start on Day +7 ID Acyclovir and fluconazole ppx Cefepime for previous neutropenic fever Oral vanco ppx GVHD Tacrolimus 2.5 mg BID Started on Day -2 GI Course complicated by diarrhea from ostomy Negative for C.diff PRN loperamide VOD ppx Ursodiol and lovenox SONA FREITAS MD Pager [phone] Dept of Hematology Central Venous Access Statement of Need Can the central IV access be removed? [ ] Yes [x] No [ ] N/A If no, reason for central access: [ ] TPN ] Chemotherapy [ ] IV Antibiotics [ ] Vasoactive medication [ ] Vesicant medication [ ] Active resuscitation with fluid or blood products [ ] Poor vascular access as determined by vascular access [x ] Stem cell transplant patient or AML induction [ ] Other: SONA FREITAS MD Pager [phone] Dept of Hematology Martha Pelayo RN - 10/23/2021 4:56 AM EST Patient Summary Reason for admission: Day +1 (10/23) of MUD alloSCT for AML conditioned with Flu/Bu/ATG/MTX Relevant PMH: s/p bowel resection/colectomy d/t toxic megacolon, Cdiff, Bilateral PE, hx paroxysmal AFIB OUTCOME EVALUATION NOTE: OUTCOME SUMMARY: Afebrile, intermittently tachy up to 108. Very fatigued but denies pain, SOB, N/V. Cefepime administered per OCT. Urine and stool heme negative. K phos infusing. Resting between care. PLAN MOVING FORWARD: Monitor fevers - last blood culture 10/21 1731 Ostomy care, monitor output - PRN imodium Encourage ambulation as tolerated, PO intake Continue IV antibiotics - cefepime INDIVIDUALIZED FALL PREVENTION INTERVENTIONS: Patient-specific fall risk factors per assessment: [current deficits]: High fall risk d/t IV therapy, secondary diagnosis, generalized weakness Assistance [level of assistance required for transfers and ambulation]: IND (BA refusal) Supervision [direct monitoring required during toileting and ADLs]: IND Surveillance [continuous indirect monitoring]: Masimo, bed alarm refused, room near unit station, call light within reach, purposeful hourly rounding Patient-specific fall prevention interventions for sensory deficits provided, if applicable: CPG GOAL OUTCOME EVALUATION: Denise Granados RN - 10/22/2021 5:35 PM EST Illness Severity [x] Stable [] Watcher [] Unstable Patient Summary Reason for admission: Day 0 (10/22) of MUD alloSCT for AML conditioned with Flu/Bu/ATG/MTX Relevant PMH: s/p bowel resection/colectomy d/t toxic megacolon, Cdiff, Bilateral PE, hx paroxysmal AFIB Significant 24 hour events: 10/22 AM: 4 total bags of cells infused today around 1100. VSS throughout, post infusion pt had rigorsand nausea, see D0 note for interventions. Potassium replenished. Ostomy output loose/liquid- not high output. Weight up from morning, MD aware, not giving lasix. Chemo plan & supportive medication: Fludarabine/ Busulfan/ATG/MTX Baseline Weight: 107.1 kg AM weight: 105.3 kg PM weight: 107.3 kg Yara Collier MD - 10/22/2021 5:29 PM EST Transfusion Medicine Service Infusion Reaction Report Transfusion Medicine Attending Physician: Yara Collier MD Date: 10/22/2021 Patient Name: Luis Manuel Mobley Jr. Date of : 1960 Chief Complaint: The patient is a 61 y.o. year old male admitted for stem cell transplant on 10/15/2021 2:15 PM. Relevant Problems: paroxysmal Afib,??c diff colitis c/b toxic megacolon s/p bowel resection and colostomy??in may 2021 Patient ABO Type: O Pos Product Type: MUD cryopreserved allogeneic transplant, 4 bags, 23.2% neutrophils at collection Infusion Description : Cellular therapy product infusion began at 10:32am on 10/22/21. Reaction Description: At ~1300 (4th stem cell bag completed at 11:17am) the patient developed rigors and was given 25mg ofDemerol. Shortly after he reported nausea and was given 8mg of Zofran. Symptoms resolved within 3 minutes. Cellular Therapy Product Information: Unit Number(s): [id number] Unit ABO Type(s): O neg Volume Transfused: 215 mL Premedication: Tylenol and Benadryl Other Blood Products Transfused in Previous 24 Hours: No Relevant History: History of Transfusion Reactions: No History: No Relevant Labs: Lab Results Component Value Date/Time WBC 0.7 (CRIT) 10/22/2021 03:13 AM HGB 7.3 (L) 10/22/2021 03:13 AM HCT 21.8 (L) 10/22/2021 03:13 AM PLATELET 59 (L) 10/22/2021 03:13 AM Vital signs associated with he transfusion reaction: TEMP PULSE BP Pre- TXN 37.1 76 122/75 During TXN 36.5 74 120/81 Vital signs over the last 24 hours: Last value Range last 24 hrs Temperature Temp: 36.9 ??C (98.4 ??F) Temp: [36.2 ??C (97.2 ??F)-37.1 ??C (98.8 ??F)] Heart Rate Heart Rate: 80 Heart Rate: [66-85] Blood Pressure BP: 99/51 BP: (95-129)/(51-85) Respiratory Rate Resp: 26 Resp: [16-28] SpO2 SpO2: 95 % SpO2: [95 %-100 %] Fluid Balance: Intake/Output Summary (Last 24 hours) at 10/22/2021 1739 Last data filed at 10/22/2021 1600 Gross per 24 hour Intake 5232 ml Output 2975 ml Net 2257 ml Laboratory Investigation: Clerical check confirms that the patient received the correct product:yes Visual inspection for hemolysis: negative Direct Antiglobulin Test (KALI): negative Product Cultured: No Product STAT Gram Stain: not done Patient Cultured: No Reaction Assessment: Febrile non-hemolytic transfusion reactions are characterized by fever and/or chills WITHOUT hemolysis occurring in the patient during or within 4 hours of cessation of transfusion. If transfusion-related, the reaction may be caused by passively transfused cytokines or a reaction of recipient antibodies and leukocytes in the blood product. Laboratory findings show no evidence of hemolysis. Recommendations: The Transfusion Medicine Service and Transfusion Committee advise against the routine premedication of patients with no prior history of transfusion reactions or of those with a history of only febrileor mild allergic reactions as this practice has not been shown to reduce the rate of these reactions. The patient is cleared for additional blood product transfusions if clinically indicated. Please report any subsequent reactions to the Transfusion Medicine Service. Yara Collier MD 10/22/2021 Denise Zapata RN - 10/22/2021 4:20 PM EST Day 0 Infusion of Frozen Product Blood return in patient's central line was verified on the day of infusion. Appropriate delay following conditioning regimen and prior to cellular therapy product infusion was confirmed. The procedure was explained to the patient and education provided on common side effects. The patient reported a good understanding. Pre-medications given as ordered. At the bedside 2 certified RNs, this RN & Caridad Gilbert, verified patient identification andperformed a product verification, including comparing the information on the signed Infusion of Cellular Therapy Order sheet and Unit Component Administration tags to the [id number] label on each product bag. Blood bank product stickers can be found in patient's paper chart. Product was infused per protocol. Bag/Syringe #1 Start time: 1032 End time: 1040 Volume: 54ml Bag/Syringe #2 Start time: 1042 End time: 1050 Volume: 54ml Bag/Syringe #3 Start time: 1054 End time: 1100 Volume: 54ml Bag/Syringe #4 Start time: 1107 End time: 1117 Volume: 53 ml VITAL SIGNS (refer to flowsheet) Side effects experienced during re-infusion: [X] Nausea [ ] Hypotension [ ] Rigors[X] Seizure Activity [ ] Vomiting [ ] Hypertension [ ] Chills [ ] Other Summary of response to above symptoms: Symptoms occurred around 1300 post stem cell transplant. Transfusion workup completed. 25mg IV demerol, and 8mg IV zofran given w/ + effect. Stacy Marin MD - 10/22/2021 7:36 AM EST Images from the original note were not included. Inpatient Hematology/Oncology/SCT Progress Note Patient info: Name: Luis Manuel Mobley Jr. : 1960 PCP: LEISA Munguia PCP phone number: [phone] Date of Admission: 10/15/2021 ( Hospital Day 7 days ) Service: Hem/Onc Team A pg [id number] (09/03) Responsible Attending:Sona Freitas MD ID: Luis Manuel Mobley Jr. is a 61 y.o. Male with hx of paroxysmal Afib, c diff colitis c/b toxic megacolon s/p bowel resection and colostomy in may 2021, FLT3+ AML with positive SU[employer] disease??s/p CR w/ 7+3+Midostaurin c/b relapse tx w ventoclax + gilteritinib (held since 10/08) most with pre-transplant BM and LP showing FELY, admitted for MUD allo HSCT.Today is day 0 (day 0 is 10/22) 24 Hour Events: - yesterday, continued on cefepime and vanco, afebrile, gabapentin for neuropathy of foot - Overnight: NAEO - This AM, reports still have tingling on his bilateral foot, able to walk in his room without assistance, ostomy draining brown liquid stool - last fever 10/20 1732 - VSS, afebrile - In/Out: 105kg -> 106.1kg -> 105.3kg - Net: -286ml Vitals: Last value Range last 24 hrs Temperature Temp: 36.4 ??C (97.5 ??F) Temp: [36.4 ??C (97.5 ??F)-36.8 ??C (98.2 ??F)] Heart Rate Heart Rate: 80 Heart Rate: [66-85] Blood Pressure BP: 116/70 BP: (95-126)/(63-73) Respiratory Rate Resp: 21 Resp: [16-21] SpO2 SpO2: 100 % SpO2: [97 %-100 %] Intake/Output Summary (Last 24 hours) at 10/22/2021 1139 Last data filed at 10/22/2021 0950 Gross per 24 hour Intake 4060 ml Output 3175 ml Net 885 ml Patient Vitals for the past 168 hrs: Weight 10/22/21 0314 105.3 kg (232 lb 2.3 oz) 10/21/21 1508 106.1 kg (233 lb 14.5 oz) 10/21/21 0435 105 kg (231 lb 7.7 oz) 10/20/21 1653 105.4 kg (232 lb 5.8 oz) 10/20/21 0404 106.1 kg (233 lb 14.5 oz) 10/19/21 165 107.9 kg (237 lb 14 oz) 10/19/21 0352 107.8 kg (237 lb 10.5 oz) 10/18/21 1526 109 kg (240 lb 4.8 oz) 10/18/21 0118 110.1 kg (242 lb 11.6 oz) 10/17/21 1518 111.2 kg (245 lb 2.4 oz) 10/17/21 0320 109.5 kg (241 lb 6.5 oz) 10/16/21 1521 107.8 kg (237 lb 10.5 oz) 10/16/21 0340 106.5 kg (234 lb 12.6 oz) 10/15/21 1415 107.1 kg (236 lb 1.8 oz) Exam: GENERAL:?appeared in no acute distress, eating breakfast CARDIOVASCULAR:??rrr no mrg PULMONARY:??CTAB on RA, no increased wob GASTROINTESTINAL:??Abdomen soft nontender to palpation w +BS. Colostomy with watery stool in place. SKIN:??No rashes, bruises or petechiae. ?? EXT: no Edema at ankles NEUROLOGICAL:??Alert and oriented to person, place and time. No focal deficits Medications: Scheduled Meds: ??? gabapentin 100 mg Oral TID ??? ceFEPime 2 g Intravenous Q8H ??? sodium chloride 0.9 % (flush) 5 mL Intravenous BID ??? metoprolol tartrate 12.5 mg Oral Q6H PIERCE ??? vancomycin 125 mg Oral BID ??? flecainide 50 mg Oral BID ??? pantoprazole EC 40 mg Oral Daily ??? supersaturated calcium phosphate 30 mL Oral 4 Times Daily ??? fluconazole 400 mg Oral Daily ??? acyclovir 800 mg Oral BID ??? [START ON 11/21/2021] sulfamethoxazole-trimethoprim DS 1 tablet Oral Daily ??? tacrolimus 0.03 mg/kg/dose (Treatment Plan Adjusted) Oral 2 times per day ??? ursodioL 300 mg Oral Daily with breakfast ??? ursodioL 600 mg Oral Daily with dinner ??? [START ON 10/23/2021] metHOTREXate (PF) 5 mg/m2/dose (Treatment Plan Adjusted) Intravenous Once ??? [START ON 10/25/2021] metHOTREXate (PF) 5 mg/m2/dose (Treatment Plan Adjusted) Intravenous Once ??? [START ON 10/28/2021] metHOTREXate (PF) 5 mg/m2/dose (Treatment Plan Adjusted) Intravenous Once ??? [START ON 11/02/2021] metHOTREXate (PF) 5 mg/m2/dose (Treatment Plan Adjusted) Intravenous Once ??? [START ON 10/29/2021] filgrastim-sndz 600 mcg Subcutaneous Daily ??? enoxaparin 100 mg Subcutaneous Daily Continuous Infusions: ??? sodium chloride 0.9% 250 mL/hr (10/22/21 1118) PRN Meds:.loperamide, furosemide, furosemide, sodium chloride 0.9 % (flush), lidocaine, LORazepam, ondansetron, prochlorperazine, potassium chloride ER, potassium chloride ER, potassium chloride, magnesium sulfate, magnesium sulfate, potassium phosphate, potassium phosphate, famotidine, diphenhydrAMINE, methylPREDNISolone sodium succinate, heparin, porcine, sodium chloride 0.9 % (flush) Labs: Recent Labs 10/22/2131210/20/21 03510/18/2145410/16/21 0345 WBC 0.7* 1.2* 3.8* 3.5* HGB 7.3* 9.4* 8.7* 8.4* HCT 21.8* 28.5* 26.2* 25.4* PLATELET 59* 80* 85* 106* NEUTROABS 0.57* -- 3.57 1.94 Recent Labs 10/22/2131210/21/215 10/20/21 1732 NA 138 138 134* K 3.9 3.7 4.2 CL 111* 107 106 CO2 16* 16* 17* BUN 34* 31* 29* CREATININE 1.09 1.01 1.05 Recent Labs 10/22/2131210/21/2144410/20/21 1732 10/20/21 0350 CALCIUM 8.4* 8.6 8.8 8.9 MAGNESIUM 0.89 1.04 1.05 0.64* PHOS 3.1 2.8 -- 2.0* Recent Labs 10/21/2144410/17/21 0310 10/16/21 0345 AST 26 30 28 ALT 34 32 31 ALKPHOS 59 87 94 BILITOT 0.4 <0.2* 0.2 BILIDIR 0.1 <0.1 0.1 No results for input(s): INR, PT, PTT in the last 72 hours. Microbiology: BCx 10/20: NGTD UA 10/20: does not look infectious Microbiology Results (Last 30 days) Procedure Component Value Units Date/Time Blood culture [[id number]] Collected: 10/20/21 173 Lab Status: Preliminary result Specimen: Blood Updated: 10/21/21 2302 Blood Culture No growth at 1 day. Blood culture [[id number]] Collected: 10/20/21 173 Lab Status: Preliminary result Specimen: Blood Updated: 10/21/21 2302 Blood Culture No growth at 1 day. Blood culture [[id number]] Collected: 10/19/21 1139 Lab Status: Preliminary result Specimen: Blood from Antecubital, Left Updated: 10/21/21 1501 Blood Culture No growth at 2 days. Blood culture [[id number]] (Abnormal) Collected: 10/19/21 1133 Lab Status: Preliminary result Specimen: Blood from Hand, Right Updated: 10/20/21 1441 Blood Culture -- Coagulase negative Staphylococcus species detected by PCR Interpretation of the importance of skin mitzy such as Coagulase Negative Staph, Viridans Strep, Corynebacteria and other Gram Positive organisms from a single Blood Culture set requires clinical correlation. Gram Stain Aerobic -- Growth detected in aerobic bottle. Gram Positive Cocci in clusters seen C. Difficile Screen [[id number]] Collected: 10/19/21 1020 Lab Status: Final result Specimen: Stool Updated: 10/19/21 1607 C Diff Screen Negative Comment: Ag/Tox Neg C. diff?? Negative Clostridium difficile is not present in the specimen. If patient is having diarrhea suspected to be from an infectious cause, then Soap & Water Contact Precautions are still required. COVID-19 PCR [[id number]] Collected: 10/19/21 0405 Lab Status: Final result Specimen: Nasopharyngeal Swab Updated: 10/19/21 1834 SARS-CoV-2 RNA Not Detected Comment: This result should be interpreted in combination with the clinical observations, patient history and epidemiological information in making a final diagnosis. For testing of asymptomatic individuals, assay performance characteristics and clinical utility have not been evaluated. Testing for SARS-CoV-2 (Severe acute respiratory syndrome coronavirus 2, formerly known as 2019 novel coronavirus or 2019-nCoV) to aid in the diagnosis of COVID-19 is performed using the [employer] m SARS-CoV-2 Assay as authorized by the FDA Emergency Use Authorization (EUA). This EUA assay is intended for In-vitro Diagnostic (IVD) use with respiratory specimens such as nasopharyngeal swabs collected from individuals during the acute phase of infection. This assay is performed based on the instructions for use provided by [employer] and additional guidance provided by CDC and FDA. Testing is performed in the [facility] within the Department of Pathology and Laboratory Medicine at [facility], certified under the Clinical Laboratory Improvement Amendments of 1988 (CLIA), 42 U.S.C. 263a, to perform high complexity tests. Assay performance has been verified according to clinical laboratory regulatory requirements for use with specimens collected from individuals suspected of COVID-19. Test results are provided above. A result of Not Detected indicates that the viral RNA target is not present above the limit of detection, but does not preclude SARS-CoV-2 infection. False negative results may occur if a specimen is improperly collected, transported or handled; if amplification inhibitors are present; or if inadequate numbers of viral particles are present in the specimen. When a diagnostic test is negative, the possibility of a false negative result should be considered in the context of a patient's recent exposures and the presence of clinical signs and symptoms consistent with COVID-19. A result of Detected indicates that RNA from SARS-CoV-2 was detected and the patient is infected. As required or requested by public health authorities, positive specimens may be sent for additional testing. Positive and negative predictive values for this test are highly dependent on disease prevalence. A result of Invalid indicates that neither the viral RNA targets nor the internal control target was detected. An invalid result suggests the presence of inhibitors. Recollection and re-testing is recommended in the case of an invalid result. CDC COVID-19 criteria for testing on human specimens and clinical management guidance information are available at the CDC Coronavirus Disease 2019 (COVID-19) webpage under Information for Healthcare Professionals (https://www.cdc.gov/coronavirus/2019-ncov/hcp/index.html) Additional information about this and other EUA tests can be found in provider and patient fact sheets at the following FDA website: https://www.fda.gov/medical-devices/evtnpqdfybk-jfpkisu-5234-jahky-22-pwremqssj- oiy-qqsehhwyethnen-quwrmrd-devices/qzgvo-iraajinvaoc-rmbv SARS-Cov-2 RNA Source ULTRASOUND SPEC Swab COVID-19 PCR [[id number]] Collected: 10/15/212032 Lab Status: Final result Specimen: Nasopharyngeal Swab Updated: 10/16/21 0004 SARS-CoV-2 RNA PCR Not Detected Comment: This result should be interpreted in combination with the clinical observations, patient history and epidemiological information. For testing of asymptomatic individuals, assay performance characteristics and clinical utility have not been evaluated. Testing for SARS-CoV-2 (Severe acute respiratory syndrome coronavirus 2, formerly known as 2019 novel coronavirus or 2019-nCoV) to aid in the diagnosis of COVID-19 is performed using the [employer] COVID-19 Direct Assay by [employer] as authorized by the FDA issued Emergency Use Authorization (EUA). This assay is intended for In-vitro Diagnostic (IVD) use with nasopharyngeal swabs collected from individuals meeting the CDC criteria for testing. The assay is performed based on the instructions for use and additional guidance provided by the FDA. Testing is performed in the Microbiology Laboratory within the Department of Pathology and Laboratory Medicine at [facility], certified under the Clinical Laboratory Improvement Amendments of 1988 (CLIA), 42 U.S.C. section 263a, to perform high complexity tests. Assay performance has been verified according to clinical laboratory regulatory requirements. Test results are provided above. A result of Not Detected indicates that the viral RNA target is not present but does not preclude SARS-CoV-2 infection. False negative results may occur if a specimen is improperly collected, transported or handled; if amplification inhibitors are present; or if inadequate numbers of viral particles are present in the specimen. A result of Detected suggests a current or recent infection and the patient is presumed to be infected. Positive and negative predictive values for this test are highly dependent on disease prevalence. A result of Invalid indicates the inability to conclusively determine the presence or absence of SARS-CoV-2 RNA in the sample which can be due to a variety of factors. Recollection is recommended in the case of an invalid result. CDC COVID-19 criteria for testing on human specimens and clinical management guidance information are available at the CDC Coronavirus Disease 2019 (COVID-19) webpage under Information for Healthcare Professionals (https://www.cdc.gov/coronavirus/2019-ncov/hcp/index.html). Additional information about this and other EUA tests can be found in provider and patient fact sheets at the following FDA website: https://www.fda.gov/medical-devices/tlxtpqomisc-kfhnttc-1945-bltmj-14-aiqjbbekl- pjo-ccyzjjvywlfewl-xbzuspm-devices/ekuny-hnvtxzjlltk-sdcv SARS-CoV-2 Source ULTRASOUND SPEC Swab Pertinent radiology/diagnostic studies: ASSESSMENT/PLAN: Luis Manuel Mobley Jr. is a 61 y.o. 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 now day 0 (day 0 is 10/22) for MUD HSCT. Patient has been afebrile for the last two days. Feeling well today, eating breakfast. Infectious workup negative to date. Will stop vanco and continue cefepime due to high risk of infection given HSCTstatus. Count dropping as expected today (ANC 3.57 -> 1.03 -> 0.57). Summary Plan: - stem cell infusion today - Stop vanco - continue cefepime - plan to decrease therapseutic lovenox to ppx once platelet < 40-50K (59 today) -WBC 3.8 -> 1.2 -> 0.7(ANC 3.57 -> 1.03 -> 0.57) - monitor I/O and daily weights ?? Plan: #AML #MUD HSCT Day (-7): Fludarabine: Day (-6): Fludarabine, Busulfan, Rabbit ATG: Day (-5): Fludarabine, Busulfan, Rabbit ATG: Day (-4): Fludarabine, Busulfan, Rabbit ATG: Day (-3): Fludarabine, Busulfan: Day (0): Stem Cell Infusion: Day (+1): metHOTREXate: Day (+3): metHOTREXate: Day (+6): metHOTREXate: Day (+11): metHOTREXate: General - q4h vitals - strict Is/Os 2x daily - weigh patient 2x daily, notify provider if weight increases by 1kg or more in 12 hour period ?- lasix 20mg IV prn weight gain >1 kg above admission baseline ?- lasix 20mg IV for weight gain 1 kg over 12 hours or input exceeding output by greater than 1,000 ml/12h - neutropenic precautions - incentive spirometry q2h while awake - activity as tolerated - electrolyte replacement Chemotherapy/Support - Busulfan 204mg??day (-6) to day (-3) -??Fludarabine??61??mg 102ml infusion once over 30 minutes day -7 Then every 24 hours at 0900 for 4 doses day (-6) to day (-3) - Rabbit ATG??124.8mg over 10 hours day (-6), 166.4mg on day (-5) 208??on day (-4).?? - Day 0 stem cell infusion. Premedicate with acetaminophen 650mg, diphenhydramine 50mg) - Methotrexate??10mg??day (+1), day (+3), day (+6), day (+11). Hold for serum creatinine >2, bilirubin >5, fluid accumulation (large effusion or ascites), severe mucositis if potential need for intubation. - filgrastim??600mcg qd starting day (+7) until ANC >1500 ?? Laboratory Monitoring - weekly CMV PCR starting day +10, then weekly thereafter - IgG every 2 weeks starting day +1 to day +100 - U/A s/ reflex culture on admission, then daily on days -2, -1, 0? Transfusion parameters - Hgb <??7.0 - PLT <10, or if febrile??or bleeding??<20 - keep active T&S once hgb <8 ?? Prophylaxis Seizure ppx ?-phenytoin 300 day (-6) through (-1) - GI ppx ?- pantoprazole 40mg qd - mucositis ppx ?- supersaturated calcium phosphate oral solution 30ml 4x daily starting on admission until resolution of mucositis and ANC ?>500 - infection ppx ?- fluconazole 400mg qd starting day (0) ?- levofloxacin 750mg qd starting day (0) until ANC >500 ?- acyclovir 800mg bid starting day (-7) ?- bactrim DS 1 tablet daily from day (-7) through day (-2) ?- bactrim DS 1 tablet MWF starting day (+30) - GVHD ppx?-??Tacrolimus??1.5mg BID??starting day (- 2)?target 5-10 trough - VOD ppx ?- lovenox 40mg qd day (-7) through (+30) per Dr. Modi's note, he should continue lovenox 100mg qd until plt apx <40 then switch to VOD ppx dose. ?- ursodiol 300mg qAM??&??qPM day (-7) through day (+30) Hydration - NaCl 0.9% continuous??150ml/hr x??day (-6) ??Through (-3) ?? Pain/Nausea/Appetite - avoid acetaminophen through??day??(-3) - avoid steroid antiemetics - palonosetron 0.25mg day (-6) - aprepitant 130mg day (-6) prior to??busulfan - lorazepam 0.5mg IV q4h prn nausea, anxiety - ondansetron??8mg q8h prn nausea, vomiting beginning day (-3) - prochlorperazine 10mg IV q6h prn nausea, vomiting - use ondansetron >??prochlorperazine or promethazine >??lorazepam >??metoclopramide - olanzapine 5mg qhs starting day (-3) for 5 doses? #Fever #possible coag negative staph bacteremia - 102.9 10/19 - C. Diff negative - UA unremarkable - BCx 10/20 negative - starting cefepime 10/19 - p - start vanc 10/20 - 10/22 #Paroxysmal Afib - Continue home metoprolol (convert to tartrate), flecainide ?? #Hx of provoked PE in Apr 2021 - On lovenox 100mg qd (held prior to central line placement) - Continue until plt reach approximately 40 followed by switch to prophylactic dosing. ?? #Hx of C diff colitis - Continue home PO vancomycin - Ostomy care #Bilateral Feet tingling - pt reports having baseline bilateral feet tingling that was noted to be worsened on on 10/21 (2 daysafter completing 5 days of fludarabine), strength intact, no loss of sensation - start gabapentin 100mg TID (10/21 - p) ?? #Routine DVT PPx: home lovenox 100mg qd until plt <40 then switch to VOD ppx dosing. Diet: Neutropenic (BMT) diet Dispo: 1-[place] CODE STATUS: Attempt Cardiopulmonary Resuscitation - Inpatient Stacy Marin MD PGY1 Internal Medicine 10/22/2021 Heme/Onc/BMT Team A Pager #[phone] Associated attestation - Sona Freitas MD - 10/22/2021 10:04 PM EST Hematology Inpatient Staff Addendum I have seen and examined this patient, reviewed all clinical, laboratory and radiographic data and discussed the case in detail with the housestaff. I agree with the findings, assessment and plan as outlined in today's housestaff note, with any additions or changes included below. Luis Manuel Mobley Jr. is a 61 y.o. male with high-risk (FLT3+) AML adm???d on 10/15 for [id number] via Flu/Bu/ATG regimen. Course marked by dev't of C difficile colitis with toxic megacolon requiring kya-kerot-lgrzcsggk, with ostomy, then dev't of 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 Day 0 today Heme Stem cell infusion today Zarxio support to start on Day +7 ID Acyclovir and fluconazole ppx Cefepime for previous neutropenic fever Oral vanco ppx GVHD Tacrolimus 2.5 mg BIS Started on Day -2 GI Course complicated by diarrhea from ostomy Negative for C.diff PRN loperamide VOD ppx Ursodiol and lovenox SONA FREITAS MD Pager [phone] Dept of Hematology Central Venous Access Statement of Need Can the central IV access be removed? [ ] Yes [x] No [ ] N/A If no, reason for central access: [ ] TPN ] Chemotherapy [ ] IV Antibiotics [ ] Vasoactive medication [ ] Vesicant medication [ ] Active resuscitation with fluid or blood products [ ] Poor vascular access as determined by vascular access [x ] Stem cell transplant patient or AML induction [ ] Other: SONA FREITAS MD Pager [phone] Dept of Hematology Martha Pelayo RN - 10/22/2021 4:30 AM EST Patient Summary Reason for admission: Day 0 (10/22) of MUD alloSCT for AML conditioned with Flu/Bu/ATG/MTX Relevant PMH: s/p bowel resection/colectomy d/t toxic megacolon, Cdiff, Bilateral PE, hx paroxysmal AFIB OUTCOME EVALUATION NOTE: OUTCOME SUMMARY: Afebrile, VSS on RA. Denies headache, SOB, N/V. Cefepime administered per OCT. IVF fluids started @0600 per regimen. Urine and stool heme negative. Will need PO K. Resting between nursing care. PLAN MOVING FORWARD: Cells at 10 am 4 total bags from same collection. Monitor fevers - last blood culture 10/20 1732 Ostomy care, monitor output - PRN imodium Encourage ambulation as tolerated, PO intake Continue IV antibiotics - cefepime + vanco (blue lumen) INDIVIDUALIZED FALL PREVENTION INTERVENTIONS: Patient-specific fall risk factors per assessment: [current deficits]: High fall risk d/t IV therapy, secondary diagnosis, generalized weakness Assistance [level of assistance required for transfers and ambulation]: IND Supervision [direct monitoring required during toileting and ADLs]: IND Surveillance [continuous indirect monitoring]: Masimo, bed alarm refused, room near unit station, call light within reach, purposeful hourly rounding Patient-specific fall prevention interventions for sensory deficits provided, if applicable: CPG GOAL OUTCOME EVALUATION: Pati Gilbert RN - 10/21/2021 6:22 PM EST Illness Severity [x] Stable [] Watcher [] Unstable Patient Summary Reason for admission: Day -1 (10/21) of MUD alloSCT for AML conditioned with Flu/Bu/ATG/MTX Relevant PMH: s/p bowel resection/colectomy d/t toxic megacolon, Cdiff, Bilateral PE, hx paroxysmal AFIB Significant 24 hour events: 10/21 AM. VSS. Afebrile, continue on IV abx as per OCT. Reported worsening numbness and tingling in feet that made it uncomfortable to walk, at bedside for assessment, gabapentin added. Ostomy changed bythis RN and then oil well fishing tool technician today. Imodium given x1. Lasix given for weight above am weight. ReviewedStem day, please provide follow up. Chemo plan & supportive medication: Fludarabine/ Busulfan/ATG/MTX Baseline Weight: 107.1 kg AM weight: 105 PM weight: 106.1 Action List Infusion at 10 am 4 total bags from same collection. Continue beacon protocol Monitor PN. Monitor fevers - last blood culture 10/21 1731 Ostomy care, monitor output - PRN imodium Encourage ambulation as tolerated, PO intake Continue IV antibiotics - cefepime + vanco Discharge Plan: Consults: oil well fishing tool technician PT [x] OT [] HAY BUCKLER [] Last Flu vaccine: Last Covid Test Result: 10/19/[address] Claudia Claros RD - 10/21/2021 1:28 PM EST Nutrition Progress Note Luis Manuel Mobley Jr. is a 61 y.o. 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 Reason for intervention: Follow up Nutrition Recommendations: BMT diet Encourage good po intake Monitor wt - trend Monitor lytes - replete as indicated Active Orders Diet Neutropenic (BMT) diet Frequency: Effective Now Number of Occurrences: Until Specified Order Comments: No grapefruit products Lab Results Component Value Date NA 138 10/21/2021 K 3.7 10/21/2021 CL 107 10/21/2021 CO2 16 (L) 10/21/2021 BUN 31 (H) 10/21/2021 CREATININE 1.01 10/21/2021 ESTGFR 80 10/21/2021 MAGNESIUM 1.04 10/21/2021 CALCIUM 8.6 10/21/2021 PHOS 2.8 10/21/2021 AST 26 10/21/2021 ALT 34 10/21/2021 ALKPHOS 59 10/21/2021 BILITOT 0.4 10/21/2021 BILIDIR 0.1 10/21/2021 TRIG 171 07/13/2021 HA1C 4.8 07/13/2021 [id number] 1,799 (H) 08/01/2021 SFOLATE 5.6 08/01/2021 IRON [...] O2 sat monitor, IV sites Other Sites: Ostomy Relevant medications: acyclovir, methotrexate, protonix, bactrim, caphosol, prograf, NS at 250 ml/hr Last Bowel Movement: 10/20/21 Admit Weight: 107.1 kg Estimated body mass index is 33.52 kg/m?? as calculated from the following: Height as of this encounter: 177 cm (5' 9.69). Weight as of this encounter: 105 kg (231 lb 7.7 oz). Anton Body Weight: 74.6 kg Usual Body Weight: 235 lbs per pt Wt Readings from Last 10 Encounters: 10/21/21 105 kg (231 lb 7.7 oz) 10/15/21 107.8 kg (237 lb 9.6 oz) 10/04/21 107.2 kg (236 lb 6.4 oz) 09/27/21 109 kg (240 lb 6.4 oz) 09/16/21 105.9 kg (233 lb 6.4 oz) 09/12/21 106.6 kg (235 lb) 09/09/21 102.8 kg (226 lb 9.6 oz) 09/05/21 106.8 kg (235 lb 6.4 oz) 08/26/21 102.8 kg (226 lb 9.6 oz) 08/19/21 100.2 kg (221 lb) Patient Vitals for the past 168 hrs: Weight 10/21/21 0435 105 kg (231 lb 7.7 oz) 10/20/21 1653 105.4 kg (232 lb 5.8 oz) 10/20/21 0404 106.1 kg (233 lb 14.5 oz) 10/19/21 1656 107.9 kg (237 lb 14 oz) 10/19/21 0352 107.8 kg (237 lb 10.5 oz) 10/18/21 1526 109 kg (240 lb 4.8 oz) 10/18/21 0118 110.1 kg (242 lb 11.6 oz) 10/17/21 1518 111.2 kg (245 lb 2.4 oz) 10/17/21 0320 109.5 kg (241 lb 6.5 oz) 10/16/21 1521 107.8 kg (237 lb 10.5 oz) 10/16/21 0340 106.5 kg (234 lb 12.6 oz) 10/15/21 1415 107.1 kg (236 lb 1.8 oz) Assessment: Estimated needs: Calories: 1865 (25 kcal/kg IBW) Protein: 89-112 grams (1.2-1.5 g/kg IBW) Nutrition Focused Physical Exam (NFPE): Not performed Nutrition intake and intake history/Interview: Luis Manuel reported an improved appetite today, he reportedover the weekend he felt fatigued and had a minimal appetite. He reported no po intake on Thursday and only ate mashed potatoes yesterday for dinner. Today, he ate 100% of breakfast (eggs, yogurt, and a v8) and almost 100% of lunch (soup and a wrap). Pt w/snacks at bedside from visitors, declined additional snacks at this time. Encouraged good po intake. Wt trending down, below reported UBW, continueto monitor. 10/17: Luis Manuel reported a good appetite today and captain room service, remote mortgage underwriter ordered breakfast for pt. He normally eats 3 meals/day or has small, frequent meals. Reported no recent wt loss, had lost wt on previous admits and has been able to regain some wt. Declined snacks at this time. He doesn't consistently track ileostomy output at home but is familiar with foods to thicken output and his familiar w/diet. Pt reported he has Food Safety for People with Cancer booklet, reviewed higher/lower risk foods with pt, no questions at this time. Protein-calorie Malnutrition: Not enough data to assess (RAFA Barnes J Parenteral Enteral Nutr. 2011; 36(3): 273-83) Nutrition to continue to follow up while inpatient Thank you, Claudia Claros RD Pager #:[phone] Stacy Marin MD - 10/21/2021 6:00 AM EST Images from the original note were not included. Inpatient Hematology/Oncology/SCT Progress Note Patient info: Name: Luis Manuel Mobley Jr. : 1960 PCP: LEISA Munguia PCP phone number: [phone] Date of Admission: 10/15/2021 ( Hospital Day 6 days ) Service: Hem/Onc Team A pg 1950 (09/03) Responsible Attending:Sona Freitas MD ID: Luis Manuel Mobley Jr. is a 61 y.o. Male with hx of paroxysmal Afib, c diff colitis c/b toxic megacolon s/p bowel resection and colostomy in may 2021, FLT3+ AML with positive [employer] disease??s/p CR w/ 7+3+Midostaurin c/b relapse tx w ventoclax + gilteritinib (held since 10/08) most with pre-transplant BM and LP showing FELY, admitted for MUD allo HSCT.Today is day -1 (day 0 is 10/22) 24 Hour Events: - Yesterday, added vanco for fever and one blood cx + for coag neg staph, repeat blood cx - Overnight, ANABEL, VSS - This AM, reports he is feeling better compared to yesterday, ordered breakfast, ostomy with liquidstool - last fever 100.6 at 10/20 5:30am - weight: 105.4kg -> 105kg - I/O: -690ml Vitals: Last value Range last 24 hrs Temperature Temp: 36.5 ??C (97.7 ??F) Temp: [36.5 ??C (97.7 ??F)-37.1 ??C (98.8 ??F)] Heart Rate Heart Rate: 87 Heart Rate: [88] Blood Pressure BP: 103/65 BP: (103-135)/(64-81) Respiratory Rate Resp: 18 Resp: [16-20] SpO2 SpO2: 100 % SpO2: [96 %-100 %] Intake/Output Summary (Last 24 hours) at 10/21/2021 1224 Last data filed at 10/21/2021 0953 Gross per 24 hour Intake 1186 ml Output 2775 ml Net -1589 ml Patient Vitals for the past 168 hrs: Weight 10/21/21 0435 105 kg (231 lb 7.7 oz) 10/20/21 1653 105.4 kg (232 lb 5.8 oz) 10/20/21 0404 106.1 kg (233 lb 14.5 oz) 10/19/21 1656 107.9 kg (237 lb 14 oz) 10/19/21 0352 107.8 kg (237 lb 10.5 oz) 10/18/21 1526 109 kg (240 lb 4.8 oz) 10/18/21 0118 110.1 kg (242 lb 11.6 oz) 10/17/21 1518 111.2 kg (245 lb 2.4 oz) 10/17/21 0320 109.5 kg (241 lb 6.5 oz) 10/16/21 1521 107.8 kg (237 lb 10.5 oz) 10/16/21 0340 106.5 kg (234 lb 12.6 oz) 10/15/21 1415 107.1 kg (236 lb 1.8 oz) Exam: GENERAL:?appeared in no acute distress, eating breakfast CARDIOVASCULAR:??rrr no mrg PULMONARY:??CTAB on RA, no increased wob GASTROINTESTINAL:??Abdomen soft nontender to palpation w +BS. Colostomy with watery stool in place. SKIN:??No rashes, bruises or petechiae. ?? EXT: no Edema at ankles NEUROLOGICAL:??Alert and oriented to person, place and time. No focal deficits Medications: Scheduled Meds: ??? [START ON 10/24/2021] Vancomycin Level - MAR Order Reminder NOT APPLICABLE Once ??? vancomycin 2 g Intravenous Q24H ??? ceFEPime 2 g Intravenous Q8H ??? sodium chloride 0.9 % (flush) 5 mL Intravenous BID ??? metoprolol tartrate 12.5 mg Oral Q6H PIERCE ??? vancomycin 125 mg Oral BID ??? flecainide 50 mg Oral BID ??? pantoprazole EC 40 mg Oral Daily ??? supersaturated calcium phosphate 30 mL Oral 4 Times Daily ??? [START ON 10/22/2021] fluconazole 400 mg Oral Daily ??? acyclovir 800 mg Oral BID ??? [START ON 11/21/2021] sulfamethoxazole-trimethoprim DS 1 tablet Oral Daily ??? tacrolimus 0.03 mg/kg/dose (Treatment Plan Adjusted) Oral 2 times per day ??? ursodioL 300 mg Oral Daily with breakfast ??? ursodioL 600 mg Oral Daily with dinner ??? [START ON 10/23/2021] metHOTREXate (PF) 5 mg/m2/dose (Treatment Plan Adjusted) Intravenous Once ??? [START ON 10/25/2021] metHOTREXate (PF) 5 mg/m2/dose (Treatment Plan Adjusted) Intravenous Once ??? [START ON 10/28/2021] metHOTREXate (PF) 5 mg/m2/dose (Treatment Plan Adjusted) Intravenous Once ??? [START ON 11/02/2021] metHOTREXate (PF) 5 mg/m2/dose (Treatment Plan Adjusted) Intravenous Once ??? [START ON 10/22/2021] acetaminophen 650 mg Oral Once ??? [START ON 10/22/2021] diphenhydrAMINE 50 mg Oral Once ??? [START ON 10/29/2021] filgrastim-sndz 600 mcg Subcutaneous Daily ??? enoxaparin 100 mg Subcutaneous Daily Continuous Infusions: ??? [START ON 10/22/2021] sodium chloride 0.9% PRN Meds:.loperamide, furosemide, furosemide, sodium chloride 0.9 % (flush), lidocaine, LORazepam, ondansetron, prochlorperazine, potassium chloride ER, potassium chloride ER, potassium chloride, magnesium sulfate, magnesium sulfate, potassium phosphate, potassium phosphate, [START ON 10/22/2021] famotidine, [START ON 10/22/2021] diphenhydrAMINE, [START ON 10/22/2021] methylPREDNISolone sodium succinate, heparin, porcine, sodium chloride 0.9 % (flush) Labs: Recent Labs 10/20/21 0350 10/18/21 0455 10/16/21 0345 10/15/21 0815 WBC 1.2* 3.8* 3.5* 4.2 HGB 9.4* 8.7* 8.4* 9.3* HCT 28.5* 26.2* 25.4* 27.4* PLATELET 80* 85* 106* 127* NEUTROABS -- 3.57 1.94 2.79 Recent Labs 10/21/2144410/20/21173110/20/21 0350 NA 138 134* 132* K 3.7 4.2 3.8 CL 107 106 102 CO2 16* 17* 16* BUN 31* 29* 26* CREATININE 1.01 1.05 1.15 Recent Labs 10/21/2144410/20/21173110/20/21 0350 10/19/21 0405 CALCIUM 8.6 8.8 8.9 8.6 MAGNESIUM 1.04 1.05 0.64* 0.74 PHOS 2.8 -- 2.0* 2.5 Recent Labs 10/21/2144410/17/21 0310 10/16/21 0345 AST 26 30 28 ALT 34 32 31 ALKPHOS 59 87 94 BILITOT 0.4 <0.2* 0.2 BILIDIR 0.1 <0.1 0.1 No results for input(s): INR, PT, PTT in the last 72 hours. Microbiology: BCx 10/20: pending UA 10/20: does not look infectious Microbiology Results (Last 30 days) Procedure Component Value Units Date/Time Blood culture [[id number]] Collected: 10/19/21 1139 Lab Status: Preliminary result Specimen: Blood from Antecubital, Left Updated: 10/20/21 1501 Blood Culture No growth at 1 day. Blood culture [[id number]] (Abnormal) Collected: 10/19/21 1133 Lab Status: Preliminary result Specimen: Blood from Hand, Right Updated: 10/20/21 1441 Blood Culture -- Coagulase negative Staphylococcus species detected by PCR Interpretation of the importance of skin mitzy such as Coagulase Negative Staph, Viridans Strep, Corynebacteria and other Gram Positive organisms from a single Blood Culture set requires clinical correlation. Gram Stain Aerobic -- Growth detected in aerobic bottle. Gram Positive Cocci in clusters seen C. Difficile Screen [[id number]] Collected: 10/19/21 1020 Lab Status: Final result Specimen: Stool Updated: 10/19/21 1607 C Diff Screen Negative Comment: Ag/Tox Neg C. diff?? Negative Clostridium difficile is not present in the specimen. If patient is having diarrhea suspected to be from an infectious cause, then Soap & Water Contact Precautions are still required. COVID-19 PCR [[id number]] Collected: 10/19/21 0405 Lab Status: Final result Specimen: Nasopharyngeal Swab Updated: 10/19/21 183 SARS-CoV-2 RNA Not Detected Comment: This result should be interpreted in combination with the clinical observations, patient history and epidemiological information in making a final diagnosis. For testing of asymptomatic individuals, assay performance characteristics and clinical utility have not been evaluated. Testing for SARS-CoV-2 (Severe acute respiratory syndrome coronavirus 2, formerly known as 2019 novel coronavirus or 2019-nCoV) to aid in the diagnosis of COVID-19 is performed using the [employer] SARS-CoV-2 Assay as authorized by the FDA Emergency Use Authorization (EUA). This EUA assay is intended for In-vitro Diagnostic (IVD) use with respiratory specimens such as nasopharyngeal swabs collected from individuals during the acute phase of infection. This assay is performed based on the instructions for use provided by [employer] and additional guidance provided by CDC and FDA. Testing is performed in the [facility] within the Department of Pathology and Laboratory Medicine at [facility], certified under the Clinical Laboratory Improvement Amendments of 1988 (CLIA), 42 U.S.C. 263a, to perform high complexity tests. Assay performance has been verified according to clinical laboratory regulatory requirements for use with specimens collected from individuals suspected of COVID-19. Test results are provided above. A result of Not Detected indicates that the viral RNA target is not present above the limit of detection, but does not preclude SARS-CoV-2 infection. False negative results may occur if a specimen is improperly collected, transported or handled; if amplification inhibitors are present; or if inadequate numbers of viral particles are present in the specimen. When a diagnostic test is negative, the possibility of a false negative result should be considered in the context of a patient's recent exposures and the presence of clinical signs and symptoms consistent with COVID-19. A result of Detected indicates that RNA from SARS-CoV-2 was detected and the patient is infected. As required or requested by public health authorities, positive specimens may be sent for additional testing. Positive and negative predictive values for this test are highly dependent on disease prevalence. A result of Invalid indicates that neither the viral RNA targets nor the internal control target was detected. An invalid result suggests the presence of inhibitors. Recollection and re-testing is recommended in the case of an invalid result. CDC COVID-19 criteria for testing on human specimens and clinical management guidance information are available at the CDC Coronavirus Disease 2019 (COVID-19) webpage under Information for Healthcare Professionals (https://www.cdc.gov/coronavirus/2019-ncov/hcp/index.html) Additional information about this and other EUA tests can be found in provider and patient fact sheets at the following FDA website: https://www.fda.gov/medical-devices/bbvcscjdisu-xgfzpcb-7384-loqvf-23-wsonnkefb- tua-ltheamhyrfzhjz-ikgrcmh-devices/ofbpi-cnbtwghmuje-lnou SARS-Cov-2 RNA Source ULTRASOUND SPEC Swab COVID-19 PCR [[id number]] Collected: 10/15/212032 Lab Status: Final result Specimen: Nasopharyngeal Swab Updated: 10/16/21 0004 SARS-CoV-2 RNA PCR Not Detected Comment: This result should be interpreted in combination with the clinical observations, patient history and epidemiological information. For testing of asymptomatic individuals, assay performance characteristics and clinical utility have not been evaluated. Testing for SARS-CoV-2 (Severe acute respiratory syndrome coronavirus 2, formerly known as 2019 novel coronavirus or 2019-nCoV) to aid in the diagnosis of COVID-19 is performed using the [employer] COVID-19 Direct Assay by [employer] as authorized by the FDA issued Emergency Use Authorization (EUA). This assay is intended for In-vitro Diagnostic (IVD) use with nasopharyngeal swabs collected from individuals meeting the CDC criteria for testing. The assay is performed based on the instructions for use and additional guidance provided by the FDA. Testing is performed in the Microbiology Laboratory within the Department of Pathology and Laboratory Medicine at [facility], certified under the Clinical Laboratory Improvement Amendments of 1988 (CLIA), 42 U.S.C. section 263a, to perform high complexity tests. Assay performance has been verified according to clinical laboratory regulatory requirements. Test results are provided above. A result of Not Detected indicates that the viral RNA target is not present but does not preclude SARS-CoV-2 infection. False negative results may occur if a specimen is improperly collected, transported or handled; if amplification inhibitors are present; or if inadequate numbers of viral particles are present in the specimen. A result of Detected suggests a current or recent infection and the patient is presumed to be infected. Positive and negative predictive values for this test are highly dependent on disease prevalence. A result of Invalid indicates the inability to conclusively determine the presence or absence of SARS-CoV-2 RNA in the sample which can be due to a variety of factors. Recollection is recommended in the case of an invalid result. CDC COVID-19 criteria for testing on human specimens and clinical management guidance information are available at the CDC Coronavirus Disease 2019 (COVID-19) webpage under Information for Healthcare Professionals (https://www.cdc.gov/coronavirus/2019-ncov/hcp/index.html). Additional information about this and other EUA tests can be found in provider and patient fact sheets at the following FDA website: https://www.fda.gov/medical-devices/mpatvslyknf-lepvfxa-4312-bapcs-61-ezdhcmqvx- hpn-agzuyefavhzfgf-epoedrf-devices/eyipq-vwuupobbbcq-hinv SARS-CoV-2 Source ULTRASOUND SPEC Swab Pertinent radiology/diagnostic studies: ASSESSMENT/PLAN: Luis Manuel Mobley Jr. is a 61 y.o. 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 now day -1 (day 0 is 10/22) for MUD HSCT. Patient has been afebrile for >24 hours. Feeling better doay. BCx drawn yest 10/21 still pending. Will continue cefepime and vanco for now because he is at high risk of infection given HSCT status. Count dropping as expected today (ANC 3.57 -> 1.03). Summary Plan: - blood cx 10/20 Pending - continue cefepime and vanco, can consider stopping vanco tmr 10/22 - plan to decrease therapseutic lovenox to ppx once platelet < 40-50K (80 today) -WBC 3.8 -> 1.2 (ANC 3.57 -> 1.03) - monitor I/O and daily weights ?? Plan: #AMS here for MUD HSCT Day (-7): Fludarabine: Day (-6): Fludarabine, Busulfan, Rabbit ATG: Day (-5): Fludarabine, Busulfan, Rabbit ATG: Day (-4): Fludarabine, Busulfan, Rabbit ATG: Day (-3): Fludarabine, Busulfan: Day (0): Stem Cell Infusion: Day (+1): metHOTREXate: Day (+3): metHOTREXate: Day (+6): metHOTREXate: Day (+11): metHOTREXate: General - q4h vitals - strict Is/Os 2x daily - weigh patient 2x daily, notify provider if weight increases by 1kg or more in 12 hour period ?- lasix 20mg IV prn weight gain >1 kg above admission baseline ?- lasix 20mg IV for weight gain 1 kg over 12 hours or input exceeding output by greater than 1,000 ml/12h - neutropenic precautions - incentive spirometry q2h while awake - activity as tolerated - electrolyte replacement Chemotherapy/Support - Busulfan 204mg??day (-6) to day (-3) -??Fludarabine??61??mg 102ml infusion once over 30 minutes day -7 Then every 24 hours at 0900 for 4 doses day (-6) to day (-3) - Rabbit ATG??124.8mg over 10 hours day (-6), 166.4mg on day (-5) 208??on day (-4).?? - Day 0 stem cell infusion. Premedicate with acetaminophen 650mg, diphenhydramine 50mg) - Methotrexate??10mg??day (+1), day (+3), day (+6), day (+11). Hold for serum creatinine >2, bilirubin >5, fluid accumulation (large effusion or ascites), severe mucositis if potential need for intubation. - filgrastim??600mcg qd starting day (+7) until ANC >1500 ?? Laboratory Monitoring - weekly CMV PCR starting day +10, then weekly thereafter - IgG every 2 weeks starting day +1 to day +100 - U/A s/ reflex culture on admission, then daily on days -2, -1, 0? Transfusion parameters - Hgb <??7.0 - PLT <10, or if febrile??or bleeding??<20 - keep active T&S once hgb <8 ?? Prophylaxis Seizure ppx ?-phenytoin 300 day (-6) through (-1) - GI ppx ?- pantoprazole 40mg qd - mucositis ppx ?- supersaturated calcium phosphate oral solution 30ml 4x daily starting on admission until resolution of mucositis and ANC ?>500 - infection ppx ?- fluconazole 400mg qd starting day (0) ?- levofloxacin 750mg qd starting day (0) until ANC >500 ?- acyclovir 800mg bid starting day (-7) ?- bactrim DS 1 tablet daily from day (-7) through day (-2) ?- bactrim DS 1 tablet MWF starting day (+30) - GVHD ppx?-??Tacrolimus??1.5mg BID??starting day (- 2)?target 5-10 trough - VOD ppx ?- lovenox 40mg qd day (-7) through (+30) per Dr. Modi's note, he should continue lovenox 100mg qd until plt apx <40 then switch to VOD ppx dose. ?- ursodiol 300mg qAM??&??qPM day (-7) through day (+30) Hydration - NaCl 0.9% continuous??150ml/hr x??day (-6) ??Through (3) ?? Pain/Nausea/Appetite - avoid acetaminophen through??day??(-3) - avoid steroid antiemetics - palonosetron 0.25mg day (-6) - aprepitant 130mg day (-6) prior to??busulfan - lorazepam 0.5mg IV q4h prn nausea, anxiety - ondansetron??8mg q8h prn nausea, vomiting beginning day (-3) - prochlorperazine 10mg IV q6h prn nausea, vomiting - use ondansetron >??prochlorperazine or promethazine >??lorazepam >??metoclopramide - olanzapine 5mg qhs starting day (-3) for 5 doses? #Fever #possible coag negative staph bacteremia - 102.9 10/19 - C. Diff negative - UA unremarkable - BCx 10/20 pending - starting cefepime 10/19 - p - start vanc 10/20 - p #Paroxysmal Afib - Continue home metoprolol (convert to tartrate), flecainide ?? #Hx of provoked PE in Apr 2021 - On lovenox 100mg qd (held prior to central line placement) - Continue until plt reach approximately 40 followed by switch to prophylactic dosing. ?? #Hx of C diff colitis - Continue home PO vancomycin - Ostomy care #Bilateral Feet tingling - pt reports having baseline bilateral feet tingling that was noted to be worsened on on 10/21 (2 daysafter completing 5 days of fludarabine), strength intact, no loss of sensation - start gabapentin 100mg TID (10/21 - p) ?? #Routine DVT PPx: home lovenox 100mg qd until plt <40 then switch to VOD ppx dosing. Diet: Neutropenic (BMT) diet Dispo: 1-[place] CODE STATUS: Attempt Cardiopulmonary Resuscitation - Inpatient Stacy Marin MD PGY1 Internal Medicine 10/21/2021 Heme/Onc/BMT Team A Pager #[phone] Associated attestation - Sona Freitas MD - 10/22/2021 5:21 AM EST Hematology Inpatient Staff Addendum I have seen and examined this patient, reviewed all clinical, laboratory and radiographic data and discussed the case in detail with the housestaff. I agree with the findings, assessment and plan as outlined in today's housestaff note, with any additions or changes included below. Luis Manuel Mobley . is a 61 y.o. male with high-risk (FLT3+) AML adm???d on 10/15 for YWE-Juvt-FSP via Flu/Bu/ATG regimen. Course marked by dev't of C difficile colitis with toxic megacolon requiring bxe-qzfbx-mslsrwote, with ostomy, then dev't of 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 Day -1 today Heme Stem cell infusion tomorrow Zarxio support to start on Day +7 ID Acyclovir and fluconazole ppx Cefepime for previous neutropenic fever Oral vanco ppx GVHD Tacrolimus 2.5 mg BIS Started on Dya -2 GI Course complicated by diarrhea from ostomy Negative for C.diff PRN loperamide VOD ppx Ursodiol and lovenox SONA FREITAS MD Pager [phone] Dept of Hematology Central Venous Access Statement of Need Can the central IV access be removed? [ ] Yes [x] No [ ] N/A If no, reason for central access: [ ] TPN ] Chemotherapy [ ] IV Antibiotics [ ] Vasoactive medication [ ] Vesicant medication [ ] Active resuscitation with fluid or blood products [ ] Poor vascular access as determined by vascular access [x ] Stem cell transplant patient or AML induction [ ] Other: SONA FREITAS MD Pager [phone] Dept of Hematology Kelsy Mujica RN - 10/21/2021 2:08 AM EST Illness Severity [x] Stable [] Watcher [] Unstable Patient Summary Reason for admission: Day -1 (10/21) of MUD alloSCT for AML conditioned with Flu/Bu/ATG/MTX Relevant PMH: s/p bowel resection/colectomy d/t toxic megacolon, Cdiff, Bilateral PE, hx paroxysmal AFIB Significant 24 hour events: 10/20 PM: VSS on RA. Denied pain, nausea. Overall, still feeling poorly, fatigued per pt; reports a little better than yesterday. Ostomy with liquid stool output, as documented. PRN PO imodium given x1 per OCT. SBA in room d/t fatigue and PICHARDO. Continues on IV cefepime. One time vanco dose completed at beginning of shift. Resting between care. Action List Monitor fevers - last blood culture 10/20 1732 Ostomy care, monitor output - PRN imodium Encourage ambulation as tolerated, PO intake Continue IV antibiotics - cefepime + vanco Dolly Mcfadden RN - 10/20/2021 5:16 PM EST Illness Severity [x] Stable [] Watcher [] Unstable Patient Summary Reason for admission: Day -2 (10/20) of Allo MUD SCT for AML conditioned with Flu/Bu/ATG/MTX Relevant PMH: s/p bowel resection/colectomy d/t toxic megacolon, Cdiff, Bilateral PE Significant 24 hour events: 10/19 PM: TMAX 39.3 at 1909. paged. One time PO 325mg tylenol given x1. 500mL NS bolus given per MAR as well (increased ostomy output, fever). Down to 38.8 on recheck, eventually afebrile at 2124 (37.8). Temp back up to 38.6 this AM. No new s/sx, pt trying to sleep in bed. notified. Ice packs applied. Temp recheck 38.1, resting in bed. Per discussion with MD Sinha, plan to hold off on tylenol for now and monitor for further decrease in temperature w/o tylenol. All other VSS on RA. Denied pain, nausea. Overall, just feeling poorly, fatigued per pt. Ostomy with liquid stool output, as documented. SBA in room d/t fatigue and PICHARDO. Continues on IV cefepime. 10/20 AM +BC x 1 bottle. Repeat cx. Start Vanco. 1L LR for BP in 90s. Afebrile this shift. Poor PO intake. Immodium started prn for profuse diarhea overnight. Chemo plan & supportive medication: Fludarabine/ Busulfan/ATG/MTX Baseline Weight: 107.1 kg AM weight: 106.1 PM weight: 105.4 Action List Monitor fevers - last blood culture 10/20 Ostomy care, monitor output Encourage ambulation as tolerated, PO intake Follow up blood cultures Continue IV antibiotics - cefepime + vanco Last Covid Test Result: 10/19/2021 Not Detected Luis Manuel Goodrich Jr., MD - 10/20/2021 10:32 AM EST Inpatient BMT/Hematology Staff Note I have independently interviewed and examined this patient and have personally reviewed the relevantclinical, laboratory and radiological data with the housestaff. ??Please refer to the comprehensive admit note from today, with which I concur, for complete details of our encounter with this patient. ??I have reviewed and endorse the plan as outlined and have made any additions/corrections below. ?? This patient meets criteria for inpatient level of care based on the above medical complexity. ?? 61 year old man??with??h/o high-risk??(FLT3+)??AML??adm???d on 10/15 for [id number] via Flu/Bu/ATG regimen. Course marked by dev't of C difficile colitis with toxic megacolon requiring zwe-vfkaj-cckxmnzec, with ostomy, then dev't of 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 ?? Now day -2, and Luis Manuel has tolerated his conditioning well, albeit with new watery output from his ostomy site and recurrent fever. Based on these events, BCx, UCx and CXR pursued (CXR neg), and Cefepimestarted on 10/19, along with oral vanc prophylaxis, given Luis Manuel's h/o C diff colitis with toxic megacolon. Stool for C diff is NEG, so we have discontinued isolation precautions and will start loperamide.We will give 1L IVF today, with electrolyte repletion, and hold off on any further diuresis, at present. Minimal nausea, and no other new focal complaints except generalized fatigue. ?? Updated Plan: 1. Continue Cefepime. Follow up on BCx, UCx - pending. 2. Loperamide and close f/u of ostomy output. Isolation precautions d/c'd. 3. Following wt, I/Os and lytes closely, per routine. 4. Plan to decrease therapeutic lovenox to ppx dose once plts <40-50k. 5. Due for stem cell reinfusion on , 10/22. ?? Above related to Luis Manuel on rounds today, and he is onboard with this plan. ? Central Venous Access Statement of Need ?? Can the central IV access be removed?[ ] Yes?[x] No?[ ] N/A ? If no, reason for central access: [ ]?TPN?]?Chemotherapy [ ]?IV Antibiotics [ ]?Vasoactive medication [ ]?Vesicant medication [ ]?Active resuscitation with fluid or blood products ?? [ ]?Poor vascular access as determined by vascular access [x??]?Stem cell transplant patient or AML induction [ ]?Other: ? TACHO Goodrich MD Heme/Onc Section?? Kelsy Mujica RN - 10/20/2021 6:00 AM EST Illness Severity [x] Stable [] Watcher [] Unstable Patient Summary Reason for admission: Day -2 (10/20) of Allo MUD SCT for AML conditioned with Flu/Bu/ATG/MTX Relevant PMH: s/p bowel resection/colectomy d/t toxic megacolon, Cdiff, Bilateral PE Significant 24 hour events: 10/19 PM: TMAX 39.3 at 1909. paged. One time PO 325mg tylenol given x1 per dayshift RN. 500mL NS bolus given per MAR as well (increased ostomy output, fever). Down to 38.8 on recheck, eventually afebrile at 2124 (37.8). Temp back up to 38.6 this AM. No new s/sx, pt trying to sleep in bed. notified. Ice packs applied. Temp recheck 38.1, resting in bed. Per discussion with MD Sinha, plan to hold off on tylenol for now and monitor for further decrease in temperature w/o tylenol. All other VSS on RA. Denied pain, nausea. Overall, just feeling poorly, fatigued per pt. Ostomy with liquid stool output, as documented. SBA in room d/t fatigue and PICHARDO. Continues on IV cefepime. Resting between care. Action List Needs PRN: K phos, mag and K+replacements per MAR Ostomy care, monitor output Encourage ambulation as tolerated, PO intake Follow up blood culture results Continue IV antibiotics - cefepime Denise Gil RN - 10/19/2021 6:38 PM EST Patient Summary Reason for admission: Day -3 (10/19) of Allo MUD SCT for AML conditioned with Flu/Bu/ATG/MTX Relevant PMH: s/p bowel resection/colectomy d/t toxic megacolon, Cdiff, Bilateral PE 3 AM: Received last doses of Fludarabine and Busulfan today, tolerated well. Tmax 39.4, blood cultures sent and pending, UA sent and pending, CXR completed, see report, not yet neutropenic but Cefepime started, Tylenol given x1, temp decreased to 38.1. Continues to have increased amounts of liquid stool via ostomy, now with fever, Cdiff sent and negative. PICHARDO and extreme fatigue noted with ambulation to bathroom, asked patient to ring for assistance, SBA this afternoon due to increased weakness. Potassium and phosphorus replaced per protocol. Weight stable near baseline. Action List Ostomy care, monitor output Encourage ambulation as tolerated, PO intake Monitor weight, assess need for prn lasix Follow up blood culture results Continue IV antibiotics Follow up CXR results Encourage po intake Luis Manuel Goodrich Jr., MD - 10/19/2021 11:58 AM EST Inpatient Hematology/Oncology/SCT Progress Note Patient info: Name: Luis Manuel Mobley Jr. : 1960 PCP: LEISA Munguia PCP phone number: [phone] Date of Admission: 10/15/2021 ( Hospital Day 4 days ) Service: Hem/Onc Team A pg [id number] (09/03) Responsible Attending:Luis Manuel Goodrich Jr., MD ID: Luis Manuel Mobley Jr. is a 61 y.o. Male with hx of paroxysmal Afib, c diff colitis c/b toxic megacolon s/p bowel resection and colostomy in may 2021, FLT3+ AML with positive [employer] disease??s/p CR w/ 7+3+Midostaurin c/b relapse tx w ventoclax + gilteritinib (held since 10/08) most with pre-transplant BM and LP showing FELY, admitted for MUD allo HSCT.Today is day -3 24 Hour Events: Received his day -4 infusion without issues -2.2L after 40 + 60mg of lasix Afebrile overnight NAOE Subjective: Luis Manuel is feeling more fatigued this AM. He reports increased watery ostomy output overnight into the AM. He denies abdominal pain. Denies orthopnea, bendopnea or subjective increased work of breathing. Following morning interview luis manuel became febrile to 102.9 Vitals: Last value Range last 24 hrs Temperature Temp: (!) 39.4 ??C (102.9 ??F) Temp: [36.6 ??C (97.9 ??F)-39.4 ??C (102.9 ??F)] Heart Rate Heart Rate: 87 Heart Rate: [87] Blood Pressure BP: (!) 146/93 BP: (93-146)/(57-93) Respiratory Rate Resp: 18 Resp: [16-18] SpO2 SpO2: 98 % SpO2: [95 %-99 %] Intake/Output Summary (Last 24 hours) at 10/19/2021 1234 Last data filed at 10/19/2021 1205 Gross per 24 hour Intake 6358 ml Output 4150 ml Net 2208 ml Patient Vitals for the past 168 hrs: Weight 10/19/21 0352 107.8 kg (237 lb 10.5 oz) 10/18/21 1526 109 kg (240 lb 4.8 oz) 10/18/21 0118 110.1 kg (242 lb 11.6 oz) 10/17/21 1518 111.2 kg (245 lb 2.4 oz) 10/17/21 0320 109.5 kg (241 lb 6.5 oz) 10/16/21 1521 107.8 kg (237 lb 10.5 oz) 10/16/21 0340 106.5 kg (234 lb 12.6 oz) 10/15/21 1415 107.1 kg (236 lb 1.8 oz) Exam: GENERAL:?Well appearing NAD lying in hospital bed, able to sit at EOB without issues. CARDIOVASCULAR:??rrr no mrg PULMONARY:??CTAB on RA, no increased wob GASTROINTESTINAL:??Abdomen soft nontender to palpation w +BS. Colostomy with watery stool in place. SKIN:??No rashes, bruises or petechiae. ?? EXT: no Edema at ankles NEUROLOGICAL:??Alert and oriented to person, place and time. No focal deficits Medications: Scheduled Meds: ??? acetaminophen 1,000 mg Oral Once ??? busulfan (Busulfex) in sodium chloride 0.9% 250 mL infusion 204 mg Intravenous Q24H ??? sodium chloride 0.9 % (flush) 5 mL Intravenous BID ??? metoprolol tartrate 12.5 mg Oral Q6H PIERCE ??? vancomycin 125 mg Oral BID ??? flecainide 50 mg Oral BID ??? phenytoin ER 300 mg Oral Daily ??? pantoprazole EC 40 mg Oral Daily ??? supersaturated calcium phosphate 30 mL Oral 4 Times Daily ??? [START ON 10/22/2021] fluconazole 400 mg Oral Daily ??? [START ON 10/22/2021] levoFLOXacin 750 mg Oral QAM ??? acyclovir 800 mg Oral BID ??? sulfamethoxazole-trimethoprim DS 1 tablet Oral Daily ??? [START ON 11/21/2021] sulfamethoxazole-trimethoprim DS 1 tablet Oral Daily ??? [START ON 10/20/2021] tacrolimus 0.03 mg/kg/dose (Treatment Plan Adjusted) Oral 2 times per day ??? ursodioL 300 mg Oral Daily with breakfast ??? ursodioL 600 mg Oral Daily with dinner ??? [START ON 10/23/2021] metHOTREXate (PF) 5 mg/m2/dose (Treatment Plan Adjusted) Intravenous Once ??? [START ON 10/25/2021] metHOTREXate (PF) 5 mg/m2/dose (Treatment Plan Adjusted) Intravenous Once ??? [START ON 10/28/2021] metHOTREXate (PF) 5 mg/m2/dose (Treatment Plan Adjusted) Intravenous Once ??? [START ON 11/02/2021] metHOTREXate (PF) 5 mg/m2/dose (Treatment Plan Adjusted) Intravenous Once ??? [START ON 10/22/2021] acetaminophen 650 mg Oral Once ??? [START ON 10/22/2021] diphenhydrAMINE 50 mg Oral Once ??? [START ON 10/29/2021] filgrastim-sndz 600 mcg Subcutaneous Daily ??? enoxaparin 100 mg Subcutaneous Daily Continuous Infusions: ??? sodium chloride 0.9% 150 mL/hr (10/19/21 0215) ??? [START ON 10/22/2021] sodium chloride 0.9% PRN Meds:.furosemide, furosemide, sodium chloride 0.9 % (flush), lidocaine, LORazepam, ondansetron, prochlorperazine, potassium chloride ER, potassium chloride ER, potassium chloride, magnesium sulfate, magnesium sulfate, potassium phosphate, potassium phosphate, [START ON 10/22/2021] famotidine, [STARTON 10/22/2021] diphenhydrAMINE, [START ON 10/22/2021] methylPREDNISolone sodium succinate, heparin, porcine, sodium chloride 0.9 % (flush) Labs: Recent Labs 10/18/21 0455 10/16/21 0345 10/15/21 0815 WBC 3.8* 3.5* 4.2 HGB 8.7* 8.4* 9.3* HCT 26.2* 25.4* 27.4* PLATELET 85* 106* 127* NEUTROABS 3.57 1.94 2.79 Recent Labs 10/19/21 0405 10/18/21 0455 10/17/21 1050 NA 140 140 140 K 3.7 4.0 4.5 CL 109* 111* 112* CO2 19* 19* 15* BUN 23* 15 13 CREATININE 0.97 1.04 0.98 Recent Labs 10/19/21 0405 10/18/21 0455 10/17/21 1050 10/17/21 0310 CALCIUM 8.6 8.6 7.9* 8.5 MAGNESIUM 0.74 0.74 -- 0.82 PHOS 2.5 2.8 -- 1.9* Recent Labs 10/17/21 0310 10/16/21 0345 10/15/21 0815 AST 30 28 30 ALT 32 31 37 ALKPHOS 87 94 104 BILITOT <0.2* 0.2 0.2 BILIDIR <0.1 0.1 -- No results for input(s): INR, PT, PTT in the last 72 hours. Microbiology: Microbiology Results (Last 30 days) Procedure Component Value Units Date/Time COVID-19 PCR [[id number]] Collected: 10/15/212032 Lab Status: Final result Specimen: Nasopharyngeal Swab Updated: 10/16/21 0004 SARS-CoV-2 RNA PCR Not Detected Comment: This result should be interpreted in combination with the clinical observations, patient history and epidemiological information. For testing of asymptomatic individuals, assay performance characteristics and clinical utility have not been evaluated. Testing for SARS-CoV-2 (Severe acute respiratory syndrome coronavirus 2, formerly known as 2019 novel coronavirus or 2019-nCoV) to aid in the diagnosis of COVID-19 is performed using the Simplexa COVID-19 Direct Assay by [employer] as authorized by the FDA issued Emergency Use Authorization (EUA). This assay is intended for In-vitro Diagnostic (IVD) use with nasopharyngeal swabs collected from individuals meeting the CDC criteria for testing. The assay is performed based on the instructions for use and additional guidance provided by the FDA. Testing is performed in the Microbiology Laboratory within the Department of Pathology and Laboratory Medicine at [facility], certified under the Clinical Laboratory Improvement Amendments of 1988 (CLIA), 42 U.S.C. section 263a, to perform high complexity tests. Assay performance has been verified according to clinical laboratory regulatory requirements. Test results are provided above. A result of Not Detected indicates that the viral RNA target is not present but does not preclude SARS-CoV-2 infection. False negative results may occur if a specimen is improperly collected, transported or handled; if amplification inhibitors are present; or if inadequate numbers of viral particles are present in the specimen. A result of Detected suggests a current or recent infection and the patient is presumed to be infected. Positive and negative predictive values for this test are highly dependent on disease prevalence. A result of Invalid indicates the inability to conclusively determine the presence or absence of SARS-CoV-2 RNA in the sample which can be due to a variety of factors. Recollection is recommended in the case of an invalid result. CDC COVID-19 criteria for testing on human specimens and clinical management guidance information are available at the CDC Coronavirus Disease 2019 (COVID-19) webpage under Information for Healthcare Professionals (https://www.cdc.gov/coronavirus/2019-ncov/hcp/index.html). Additional information about this and other EUA tests can be found in provider and patient fact sheets at the following FDA website: https://www.fda.gov/medical-devices/pviekbnsmxm-nwnmzce-0240-gafhf-20-wvdbbghja- ryv-lssdehscfpgpbl-jbztxqi-devices/sbgts-zezqmwqsjqn-pnxt SARS-CoV-2 Source ULTRASOUND SPEC Swab Pertinent radiology/diagnostic studies: ASSESSMENT/PLAN: Luis Manuel Mobley Jr. is a 61 y.o. 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 now day -3 for MUD HSCT. ? With worsening fevers will get CXR, BCX, UCX and start cefepime despite his adequate ANC. Concern for C. Diff with history and new watery stools with testing sent. ATG reaction or pneumonia is also possible however no respiratory symptoms at this time. Will plan to continue with beacon plan. Diuresed well yesterday now close to admission weight at 107kg. Will hold further diuresis. ?? Plan: Day (-7): Fludarabine: Day (-6): Fludarabine, Busulfan, Rabbit ATG: Day (-5): Fludarabine, Busulfan, Rabbit ATG: Day (-4): Fludarabine, Busulfan, Rabbit ATG: Day (-3): Fludarabine, Busulfan: Day (0): Stem Cell Infusion: Day (+1): metHOTREXate: Day (+3): metHOTREXate: Day (+6): metHOTREXate: Day (+11): metHOTREXate: General - q4h vitals - strict Is/Os 2x daily - weigh patient 2x daily, notify provider if weight increases by 1kg or more in 12 hour period ?- lasix 20mg IV prn weight gain >1 kg above admission baseline ?- lasix 20mg IV for weight gain 1 kg over 12 hours or input exceeding output by greater than 1,000 ml/12h - neutropenic precautions - incentive spirometry q2h while awake - activity as tolerated - electrolyte replacement Chemotherapy/Support - Busulfan 204mg??day (-6) to day (-3) -??Fludarabine??61??mg 102ml infusion once over 30 minutes day -7 Then every 24 hours at 0900 for 4 doses day (-6) to day (-3) - Rabbit ATG??124.8mg over 10 hours day (-6), 166.4mg on day (-5) 208??on day (-4).?? - Day 0 stem cell infusion. Premedicate with acetaminophen 650mg, diphenhydramine 50mg) - Methotrexate??10mg??day (+1), day (+3), day (+6), day (+11). Hold for serum creatinine >2, bilirubin >5, fluid accumulation (large effusion or ascites), severe mucositis if potential need for intubation. - filgrastim??600mcg qd starting day (+7) until ANC >1500 ?? Laboratory Monitoring - weekly CMV PCR starting day +10, then weekly thereafter - IgG every 2 weeks starting day +1 to day +100 - U/A s/ reflex culture on admission, then daily on days -2, -1, 0? Transfusion parameters - Hgb <??7.0 - PLT <10, or if febrile??or bleeding??<20 - keep active T&S once hgb <8 ?? Prophylaxis Seizure ppx ?-phenytoin 300 day (-6) through (-1) - GI ppx ?- pantoprazole 40mg qd - mucositis ppx ?- supersaturated calcium phosphate oral solution 30ml 4x daily starting on admission until resolution of mucositis and ANC ?>500 - infection ppx ?- fluconazole 400mg qd starting day (0) ?- levofloxacin 750mg qd starting day (0) until ANC >500 ?- acyclovir 800mg bid starting day (-7) ?- bactrim DS 1 tablet daily from day (-7) through day (-2) ?- bactrim DS 1 tablet MWF starting day (+30) - GVHD ppx?-??Tacrolimus??1.5mg BID??starting day (- 2)?target 5-10 trough - VOD ppx ?- lovenox 40mg qd day (-7) through (+30) per Dr. Modi's note, he should continue lovenox 100mg qd until plt apx <40 then switch to VOD ppx dose. ?- ursodiol 300mg qAM??&??qPM day (-7) through day (+30) Hydration - NaCl 0.9% continuous??150ml/hr x??day (-6) ??Through (-3) ?? Pain/Nausea/Appetite - avoid acetaminophen through??day??(-3) - avoid steroid antiemetics - palonosetron 0.25mg day (-6) - aprepitant 130mg day (-6) prior to??busulfan - lorazepam 0.5mg IV q4h prn nausea, anxiety - ondansetron??8mg q8h prn nausea, vomiting beginning day (-3) - prochlorperazine 10mg IV q6h prn nausea, vomiting - use ondansetron >??prochlorperazine or promethazine >??lorazepam >??metoclopramide - olanzapine 5mg qhs starting day (-3) for 5 doses? #Fever - 102.9 10/19 -BCX, UCX, CXR, C. Diff - starting cefepime q8 #Paroxysmal Afib - Continue home metoprolol (convert to tartrate), flecainide ?? #Hx of provoked PE in Apr 2021 - On lovenox 100mg qd (held prior to central line placement) - Continue until plt reach approximately 40 followed by switch to prophylactic dosing. ?? #Hx of C diff colitis - Continue home PO vancomycin - Ostomy care ?? #Routine DVT PPx: home lovenox 100mg qd until plt <40 then switch to VOD ppx dosing. Diet: Neutropenic (BMT) diet Dispo: 1-[place] CODE STATUS: Attempt Cardiopulmonary Resuscitation - Inpatient Aurelio Morris MD PGY1 Internal Medicine 10/19/2021 Heme/Onc/BMT Team A Pager #[phone] Inpatient BMT/Hematology Staff Addendum I have independently interviewed and examined this patient and have personally reviewed the relevantclinical, laboratory and radiological data with the housestaff. ??Please refer to the comprehensive admit note from today, with which I concur, for complete details of our encounter with this patient. ??I have reviewed and endorse the plan as outlined and have made any additions/corrections below. ?? This patient meets criteria for inpatient level of care based on the above medical complexity. ?? 61 year old man??with??h/o high-risk??(FLT3+)??AML??adm???d on 10/15 for RFQ-Lzzf-[id number] via Flu/Bu/ATG regimen. Course marked by dev't of C difficile colitis with toxic megacolon requiring suzie-colectomy, with ostomy, then dev't of 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 ?? Now day -3, and Luis Manuel is tolerating his conditioning well, thus far, albeit with new watery output from his ostomy site and fever (x2) this AM. Based on these events, BCx, UCx and CXR being pursued, andwe will start Cefepime, along with oral vanc prophylaxis, given Luis Manuel's h/o C diff colitis with toxicmegacolon. Stool also sent for C diff screen (Ag/toxin). We are holding off on any further diuresis,at present, and will continue to follow closely, repleting electrolytes, as nec. No nausea or other new focal complaints except generalized fatigue. ?? Updated Plan: 1. Fever work-up underway -> BCx, UCx, CXR; empiric Cefepime started. 2. Stool sent for C diff; soap/water precautions initiated. 3. Following ostomy output, VS and lytes closely. 4. Plan to decrease therapeutic lovenox to ppx dose once plts <50k. 5. Due for stem cell reinfusion on 10/22. Above related to Luis Manuel on rounds today, and he is onboard with this plan. ? Central Venous Access Statement of Need ?? Can the central IV access be removed?[ ] Yes?[x] No?[ ] N/A ? If no, reason for central access: [ ]?TPN?]?Chemotherapy [ ]?IV Antibiotics [ ]?Vasoactive medication [ ]?Vesicant medication [ ]?Active resuscitation with fluid or blood products ?? [ ]?Poor vascular access as determined by vascular access [x??]?Stem cell transplant patient or AML induction [ ]?Other: ? TACHO Goodrich MD Heme/Onc Section?? Kelsy Mujica RN - 10/19/2021 5:45 AM EST Illness Severity [x] Stable [] Watcher [] Unstable Patient Summary Reason for admission: Day -3 (10/19) of Allo MUD SCT for AML conditioned with Flu/Bu/ATG/MTX Relevant PMH: s/p bowel resection/colectomy d/t toxic megacolon, Cdiff, Bilateral PE Significant 24 hour events: 3 PM: VSS on RA. Denied pain, SOB. Nausea with dry heaves this AM. PRN compazine given this AM, effect pending. ATG infused without issue per OCT. VS assessed per protocol; blood return maintained and site checks completed per policy. Reports feeling more fatigued, w/PICHARDO with long distances. Able to ambulate in room without issue, however. IVF per protocol. Independent with ostomy care and emptying device. Stool turning more liquidy per pt. Per pt request, will try to eat x2 bananas. Resting between care. 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 ATG completed without issues. Independent with ostomy care. Lasix given this AM for weight gain. Pt resting b/t nursing care. Will continue to monitor. 3 AM: Flu/bu infused and tolerated well. ATG infusing without issue thus far. Tmax 37.8 down to 37.3 w/ recheck, otherwise VSS on RA. Pt endorses fatigue this shift, PICHARDO noted w/ exertion. 120 total of IV lasix given per MD order. Chemo plan & supportive medication: Fludarabine/ Busulfan/ATG/MTX day -4 (10/18/21) Baseline Weight: 107.1 kg AM weight: 110.1kg (10/18) PM weight: 109 kg Neuro: WDL vision change, back to 80% CV: WDL Telemetry: No Neurovasc: .WDL except, neurovascular assessment lower N/T lower extremities @ baseline VTE Prophylaxis: anticoagulant therapy tx Lovenox Pulmonary: .WDL except, rhythm/pattern dim O2 Device: None (Room air) GI: .WDL except LBM: 10/18/21 Colostomy Fingerstick order: No : WDL Musculoskeletal: WDL Pain/Location: 0 (10/18/21 0900) / Mobility Plan: Independent Bed alarm sensitivity: N/A Skin: .WDL except Psych/Social: [place] Action List Continue [place] Plan Ostomy care, may need high output bag applied, supplied delivered to room Encourage ambulation Encourage po intake Monitor weight, assess need for prn lasix Discharge Plan: Consults: PT [x] OT [] HAY BUCKLER [] Last Flu vaccine: Last Covid Test Result: 10/15/2021 Not Detected Situational Awareness & Contingency Planning Synthesis (Verbal Only) (Brief summary, ask questions, restate orellana action/to do items) Luis Manuel Goodrich Jr., MD - 10/18/2021 6:42 AM EST Inpatient Hematology/Oncology/SCT Progress Note Patient info: Name: Luis Manuel Mobley Jr. : 1960 PCP: LEISA Munguia PCP phone number: [phone] Date of Admission: 10/15/2021 ( Hospital Day 3 days ) Service: Hem/Onc Team A pg [id number] (09/03) Responsible Attending:Luis Manuel Goodrich Jr., MD ID: Luis Manuel L Kishor Jr. is a 61 y.o. Male with hx of paroxysmal Afib, c diff colitis c/b toxic megacolon s/p bowel resection and colostomy in may 2021, FLT3+ AML with positive [employer] disease??s/p CR w/ 7+3+Midostaurin c/b relapse tx w ventoclax + gilteritinib (held since 10/08) most with pre-transplant BM and LP showing FELY, admitted for MUD allo HSCT.Today is day -4 24 Hour Events: Received his day -5 infusion without issues Lasix 20mg X2 (40mg total) yesterday for weight gain- remained +350 with 0.6kg weight gain - Given extra 40mg in addition to PRN 20 this AM (60 total) NAOE Subjective: Luis Manuel is feeling well at this baseline without any symptoms. Denies orthopnea, bendopnea or subjective increased work of breathing. Vitals: Last value Range last 24 hrs Temperature Temp: 36.8 ??C (98.3 ??F) Temp: [36.4 ??C (97.5 ??F)-37.2 ??C (99 ??F)] Heart Rate Heart Rate: 75 Heart Rate: [70-85] Blood Pressure BP: 108/66 BP: (87-137)/(53-79) Respiratory Rate Resp: 20 Resp: [16-20] SpO2 SpO2: 97 % SpO2: [94 %-99 %] Intake/Output Summary (Last 24 hours) at 10/18/2021 0642 Last data filed at 10/18/2021 0634 Gross per 24 hour Intake 6197 ml Output 5840 ml Net 357 ml Patient Vitals for the past 168 hrs: Weight 10/18/21 0118 110.1 kg (242 lb 11.6 oz) 10/17/21 1518 111.2 kg (245 lb 2.4 oz) 10/17/21 0320 109.5 kg (241 lb 6.5 oz) 10/16/21 1521 107.8 kg (237 lb 10.5 oz) 10/16/21 0340 106.5 kg (234 lb 12.6 oz) 10/15/21 1415 107.1 kg (236 lb 1.8 oz) Exam: GENERAL:?Well appearing NAD lying in hospital bed, able to sit at EOB without issues. CARDIOVASCULAR:??rrr no mrg PULMONARY:??CTAB GASTROINTESTINAL:??Abdomen soft nontender to palpation w +BS. Colostomy with soft stool in place. SKIN:??No rashes, bruises or petechiae. ?? EXT: trace pitting edema of bilateral ankles, unchanged. NEUROLOGICAL:??Alert and oriented to person, place and time. No focal deficits Medications: Scheduled Meds: ??? busulfan (Busulfex) in sodium chloride 0.9% 250 mL infusion 204 mg Intravenous Q24H ??? sodium chloride 0.9 % (flush) 5 mL Intravenous BID ??? metoprolol tartrate 12.5 mg Oral Q6H PIERCE ??? vancomycin 125 mg Oral BID ??? flecainide 50 mg Oral BID ??? [START ON 10/19/2021] ondansetron 16 mg Intravenous Once ??? acetaminophen 650 mg Oral Q5H ??? diphenhydrAMINE 50 mg Intravenous Q5H ??? methylPREDNISolone sodium succinate 1 mg/kg/dose (Treatment Plan Adjusted) Intravenous Q5H ??? phenytoin ER 300 mg Oral Daily ??? pantoprazole EC 40 mg Oral Daily ??? supersaturated calcium phosphate 30 mL Oral 4 Times Daily ??? [START ON 10/22/2021] fluconazole 400 mg Oral Daily ??? [START ON 10/22/2021] levoFLOXacin 750 mg Oral QAM ??? acyclovir 800 mg Oral BID ??? sulfamethoxazole-trimethoprim DS 1 tablet Oral Daily ??? [START ON 11/21/2021] sulfamethoxazole-trimethoprim DS 1 tablet Oral Daily ??? [START ON 10/20/2021] tacrolimus 0.03 mg/kg/dose (Treatment Plan Adjusted) Oral 2 times per day ??? ursodioL 300 mg Oral Daily with breakfast ??? ursodioL 600 mg Oral Daily with dinner ??? fludarabine (Fludara) infusion 30 mg/m2/dose (Treatment Plan Adjusted) Intravenous Q24H ??? anti-thymocyte immune glob (rabbit) (Thymoglobulin) IV 2.5 mg/kg/dose (Treatment Plan Adjusted) Intravenous Once ??? [START ON 10/23/2021] metHOTREXate (PF) 5 mg/m2/dose (Treatment Plan Adjusted) Intravenous Once ??? [START ON 10/25/2021] metHOTREXate (PF) 5 mg/m2/dose (Treatment Plan Adjusted) Intravenous Once ??? [START ON 10/28/2021] metHOTREXate (PF) 5 mg/m2/dose (Treatment Plan Adjusted) Intravenous Once ??? [START ON 11/02/2021] metHOTREXate (PF) 5 mg/m2/dose (Treatment Plan Adjusted) Intravenous Once ??? [START ON 10/22/2021] acetaminophen 650 mg Oral Once ??? [START ON 10/22/2021] diphenhydrAMINE 50 mg Oral Once ??? [START ON 10/29/2021] filgrastim-sndz 600 mcg Subcutaneous Daily ??? enoxaparin 100 mg Subcutaneous Daily Continuous Infusions: ??? sodium chloride 0.9% 150 mL/hr (10/17/212222) ??? [START ON 10/22/2021] sodium chloride 0.9% PRN Meds:.sodium chloride 0.9 % (flush), lidocaine, LORazepam, [START ON 10/19/2021] ondansetron, prochlorperazine, furosemide, furosemide, potassium chloride ER, potassium chloride ER, potassium chloride, magnesium sulfate, magnesium sulfate, potassium phosphate, potassium phosphate, [START ON 10/22/2021] famotidine, [START ON 10/22/2021] diphenhydrAMINE, [START ON 10/22/2021] methylPREDNISolone sodium succinate, heparin, porcine, sodium chloride 0.9 % (flush) Labs: Recent Labs 10/18/21 0455 10/16/21 0345 10/15/21 0815 WBC 3.8* 3.5* 4.2 HGB 8.7* 8.4* 9.3* HCT 26.2* 25.4* 27.4* PLATELET 85* 106* 127* NEUTROABS 3.57 1.94 2.79 Recent Labs 10/18/21 0455 10/17/21 1050 10/17/21 0310 NA 140 140 140 K 4.0 4.5 4.2 CL 111* 112* 112* CO2 19* 15* 15* BUN 15 13 15 CREATININE 1.04 0.98 1.13 Recent Labs 10/18/21 0455 10/17/21 1050 10/17/21 0310 10/16/21 0345 CALCIUM 8.6 7.9* 8.5 9.1 MAGNESIUM 0.74 -- 0.82 0.67* PHOS 2.8 -- 1.9* 4.5 Recent Labs 10/17/21 0310 10/16/21 0345 10/15/21 0815 AST 30 28 30 ALT 32 31 37 ALKPHOS 87 94 104 BILITOT <0.2* 0.2 0.2 BILIDIR <0.1 0.1 -- No results for input(s): INR, PT, PTT in the last 72 hours. Microbiology: Microbiology Results (Last 30 days) Procedure Component Value Units Date/Time COVID-19 PCR [[id number]] Collected: 10/15/212032 Lab Status: Final result Specimen: Nasopharyngeal Swab Updated: 10/16/21 0004 SARS-CoV-2 RNA PCR Not Detected Comment: This result should be interpreted in combination with the clinical observations, patient history and epidemiological information. For testing of asymptomatic individuals, assay performance characteristics and clinical utility have not been evaluated. Testing for SARS-CoV-2 (Severe acute respiratory syndrome coronavirus 2, formerly known as 2019 novel coronavirus or 2019-nCoV) to aid in the diagnosis of COVID-19 is performed using the Simplexa COVID-19 Direct Assay by [employer] as authorized by the FDA issued Emergency Use Authorization (EUA). This assay is intended for In-vitro Diagnostic (IVD) use with nasopharyngeal swabs collected from individuals meeting the CDC criteria for testing. The assay is performed based on the instructions for use and additional guidance provided by the FDA. Testing is performed in the Microbiology Laboratory within the Department of Pathology and Laboratory Medicine at [facility], certified under the Clinical Laboratory Improvement Amendments of 1988 (CLIA), 42 U.S.C. section 263a, to perform high complexity tests. Assay performance has been verified according to clinical laboratory regulatory requirements. Test results are provided above. A result of Not Detected indicates that the viral RNA target is not present but does not preclude SARS-CoV-2 infection. False negative results may occur if a specimen is improperly collected, transported or handled; if amplification inhibitors are present; or if inadequate numbers of viral particles are present in the specimen. A result of Detected suggests a current or recent infection and the patient is presumed to be infected. Positive and negative predictive values for this test are highly dependent on disease prevalence. A result of Invalid indicates the inability to conclusively determine the presence or absence of SARS-CoV-2 RNA in the sample which can be due to a variety of factors. Recollection is recommended in the case of an invalid result. CDC COVID-19 criteria for testing on human specimens and clinical management guidance information are available at the CDC Coronavirus Disease 2019 (COVID-19) webpage under Information for Healthcare Professionals (https://www.cdc.gov/coronavirus/2019-ncov/hcp/index.html). Additional information about this and other EUA tests can be found in provider and patient fact sheets at the following FDA website: https://www.fda.gov/medical-devices/cxlgyurvbvo-zbfronl-9208-otjno-20-jdibfjhpv- gcd-pjpsgkdwavbzjb-illexak-devices/bpwcw-cpqvvnxbupz-kiuz SARS-CoV-2 Source ULTRASOUND SPEC Swab Pertinent radiology/diagnostic studies: ASSESSMENT/PLAN: Luis Manuel Mobley Jr. is a 61 y.o. 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 now day -4 for MUD HSCT. ? Luis Manuel Mobley Jr. is feeling well today. He had no reaction to his ATG and is feeling well this AM without new symptoms. Will plan to continue with beacon plan. For his weight gain we will diurese againwith 100 mg lasix this PM if he is not net negative >500cc this afternoon following his 60mg of lasix this AM. He is still showing no clinical signs of volume overload. ?? Plan: Day (-7): Fludarabine: Day (-6): Fludarabine, Busulfan, Rabbit ATG: Day (-5): Fludarabine, Busulfan, Rabbit ATG: Day (-4): Fludarabine, Busulfan, Rabbit ATG: Day (-3): Fludarabine, Busulfan: Day (0): Stem Cell Infusion: Day (+1): metHOTREXate: Day (+3): metHOTREXate: Day (+6): metHOTREXate: Day (+11): metHOTREXate: General - q4h vitals - strict Is/Os 2x daily - weigh patient 2x daily, notify provider if weight increases by 1kg or more in 12 hour period ?- lasix 20mg IV prn weight gain >1 kg above admission baseline ?- lasix 20mg IV for weight gain 1 kg over 12 hours or input exceeding output by greater than 1,000 ml/12h - neutropenic precautions - incentive spirometry q2h while awake - activity as tolerated - electrolyte replacement ?? Chemotherapy/Support - Busulfan 204mg??day (-6) to day (-3) -??Fludarabine??61??mg 102ml infusion once over 30 minutes day -7 Then every 24 hours at 0900 for 4 doses day (-6) to day (-3) - Rabbit ATG??124.8mg over 10 hours day (-6), 166.4mg on day (-5) 208??on day (-4).?? - Day 0 stem cell infusion. Premedicate with acetaminophen 650mg, diphenhydramine 50mg) - Methotrexate??10mg??day (+1), day (+3), day (+6), day (+11). Hold for serum creatinine >2, bilirubin >5, fluid accumulation (large effusion or ascites), severe mucositis if potential need for intubation. - filgrastim??600mcg qd starting day (+7) until ANC >1500 ?? Laboratory Monitoring - weekly CMV PCR starting day +10, then weekly thereafter - IgG every 2 weeks starting day +1 to day +100 - U/A s/ reflex culture on admission, then daily on days -2, -1, 0? Transfusion parameters - Hgb <??7.0 - PLT <10, or if febrile??or bleeding??<20 - keep active T&S once hgb <8 ?? Prophylaxis Seizure ppx ?-phenytoin 300 day (-6) through (-1) - GI ppx ?- pantoprazole 40mg qd - mucositis ppx ?- supersaturated calcium phosphate oral solution 30ml 4x daily starting on admission until resolution of mucositis and ANC ?>500 - infection ppx ?- fluconazole 400mg qd starting day (0) ?- levofloxacin 750mg qd starting day (0) until ANC >500 ?- acyclovir 800mg bid starting day (-7) ?- bactrim DS 1 tablet daily from day (-7) through day (-2) ?- bactrim DS 1 tablet MWF starting day (+30) - GVHD ppx?-??Tacrolimus??1.5mg BID??starting day (- 2)?target 5-10 trough - VOD ppx ?- lovenox 40mg qd day (-7) through (+30) per Dr. Modi's note, he should continue lovenox 100mg qd until plt apx <40 then switch to VOD ppx dose. ?- ursodiol 300mg qAM??&??qPM day (-7) through day (+30) Hydration - NaCl 0.9% continuous??150ml/hr x??day (-6) ??Through (-3) ?? Pain/Nausea/Appetite - avoid acetaminophen through??day??(-3) - avoid steroid antiemetics - palonosetron 0.25mg day (-6) - aprepitant 130mg day (-6) prior to??busulfan - lorazepam 0.5mg IV q4h prn nausea, anxiety - ondansetron??8mg q8h prn nausea, vomiting beginning day (-3) - prochlorperazine 10mg IV q6h prn nausea, vomiting - use ondansetron >??prochlorperazine or promethazine >??lorazepam >??metoclopramide - olanzapine 5mg qhs starting day (-3) for 5 doses? #Paroxysmal Afib - Continue home metoprolol (convert to tartrate), flecainide ?? #Hx of provoked PE in Apr 2021 - On lovenox 100mg qd (held prior to central line placement) - Continue until plt reach approximately 40 followed by switch to prophylactic dosing. ?? #Hx of C diff colitis - Continue home PO vancomycin - Ostomy care ?? #Routine DVT PPx: home lovenox 100mg qd until plt <40 then switch to VOD ppx dosing. Diet: Neutropenic (BMT) diet Dispo: 1-[place] CODE STATUS: Attempt Cardiopulmonary Resuscitation - Inpatient Aurelio Morris MD PGY1 Internal Medicine 10/18/2021 Heme/Onc/BMT Team A Pager #[phone] Inpatient BMT/Hematology Staff Addendum I have independently interviewed and examined this patient and have personally reviewed the relevantclinical, laboratory and radiological data with the housestaff. ??Please refer to the comprehensive admit note from today, with which I concur, for complete details of our encounter with this patient. ??I have reviewed and endorse the plan as outlined and have made any additions/corrections below. ?? This patient meets criteria for inpatient level of care based on the above medical complexity. ?? 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 Course marked by dev't of C difficile colitis with toxic megacolon requiring suzie-colectomy, with ostomy, then dev't of 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 ?? Now day -4, and Luis Manuel is tolerating his conditioning well, thus far. We are aggressively diuresing today with lasix 60 mg (and recheck of wt in afternoon) due to net POS wt (+3 kg) and also repleting electrolytes, as nec. No nausea or other new focal complaints. Luis Manuel is overall doing quite well. ? Above related to Luis Manuel on rounds today, and he is onboard with this plan. ? Central Venous Access Statement of Need ?? Can the central IV access be removed?[ ] Yes?[x] No?[ ] N/A ? If no, reason for central access: [ ]?TPN?]?Chemotherapy [ ]?IV Antibiotics [ ]?Vasoactive medication [ ]?Vesicant medication [ ]?Active resuscitation with fluid or blood products ?? [ ]?Poor vascular access as determined by vascular access [x??]?Stem cell transplant patient or AML induction [ ]?Other: ? TACHO Goodrich MD Heme/Onc Section?? Mark Felder RN - 10/18/2021 6:39 AM EST Patient Summary Reason for admission: Day -4(10/18) of Allo MUD SCT for AML conditioned with Flu/Bu/ATG/MTX Relevant PMH: s/p bowel resection/colectomy d/t toxic megacolon, Cdiff, Bilateral PE Significant 24 hour events: 3 PM: VSS on RA. ATG completed without issues. Independent with ostomy care. Lasix given this AM for weight gain. Pt resting b/t nursing care. Will continue to monitor. Chemo plan & supportive medication: Fludarabine/ Busulfan/ATG/MTX day -4 (10/18/21) Baseline Weight: 107.1 kg AM weight: 110.1kg (10/18) PM weight: 111.2 kg Action List Continue [place] Plan Ostomy care, may need high output bag applied, supplied delivered to room Encourage ambulation Encourage po intake Monitor weight, assess need for prn lasix Next chemo due 10/19, FLU/BU/ATG Discharge Plan: Consults: PT [x] OT [] HAY BUCKLER [] Last Flu vaccine: Last Covid Test Result: 10/15/2021 Not Detected Denise Zapata RN - 10/17/2021 5:38 PM EST Illness Severity [x] Stable [] Watcher [] Unstable Patient Summary Reason for admission: Day -5 (10/17) of Allo MUD SCT for AML conditioned with Flu/Bu/ATG/MTX Relevant PMH: s/p bowel resection/colectomy d/t toxic megacolon, Cdiff, Bilateral PE Significant 24 hour events: 33 AM: Flu/Bu infused and tolerated well, ATG infusing without issue thus far, 1/2 premeds due @ 1950. Lasix given for >2kg weight gain this afternoon. Ambulated 1 mile. Tunneled line dressing changed. 3/2PM: ATG completed without issues, vss. BP is soft 90s-100s/50s. Independent with ostomy care. Lasix given this AM for weight gain. K phos started per PRN orders. Chemo plan & supportive medication: Fludarabine/ Busulfan/ATG/MTX day -5 (10/17/21) Baseline Weight: 107.1 kg AM weight: 109.5 (10/17/21) PM weight: 111.2 kg Action List Tunneled line dressing change Continue [place] Plan Ostomy care, may need high output bag applied, supplied delivered to room Encourage ambulation Encourage po intake Monitor weight, assess need for prn lasix Next chemo due 10/18, FLU/BU/ATG Claudia Claros RD - 10/17/2021 10:19 AM EST Nutrition Consult Note Luis Manuel Mobley Jr. is a 61 y.o. 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 Reason for intervention: cx: HSCT Patient Nutrition Recommendations: BMT diet Encourage good po intake Monitor wt - trend Monitor lytes - replete as indicated Active Orders Diet Neutropenic (BMT) diet Frequency: Effective Now Number of Occurrences: Until Specified Order Comments: No grapefruit products Lab Results Component Value Date NA 140 10/17/2021 K 4.2 10/17/2021 CL 112 (H) 10/17/2021 CO2 15 (L) 10/17/2021 BUN 15 10/17/2021 CREATININE 1.13 10/17/2021 ESTGFR 70 10/17/2021 MAGNESIUM 0.82 10/17/2021 CALCIUM 8.5 10/17/2021 PHOS 1.9 (L) 10/17/2021 AST 30 10/17/2021 ALT 32 10/17/2021 ALKPHOS 87 10/17/2021 BILITOT <0.2 (L) 10/17/2021 BILIDIR <0.1 10/17/2021 TRIG 171 07/13/2021 HA1C 4.8 07/13/2021 [id number] 1,799 (H) 08/01/2021 SFOLATE 5.6 08/01/2021 IRON [...] O2 sat monitor, IV sites Other Sites: Ostomy, Tunneled line, Metiport Relevant medications: acyclovir, methotrexate, solu-medrol, zofran, protonix, dilantin, bactrim, caphosol, prograf, NS at 250 ml/hr Last Bowel Movement: 10/16/21 Admit Weight: 107.1 kg Estimated body mass index is 34.95 kg/m?? as calculated from the following: Height as of this encounter: 177 cm (5' 9.69). Weight as of this encounter: 109.5 kg (241 lb 6.5 oz). Anton Body Weight: 74.6 kg Usual Body Weight: 235 lbs per pt Wt Readings from Last 10 Encounters: 10/17/21 109.5 kg (241 lb 6.5 oz) 10/15/21 107.8 kg (237 lb 9.6 oz) 10/04/21 107.2 kg (236 lb 6.4 oz) 09/27/21 109 kg (240 lb 6.4 oz) 09/16/21 105.9 kg (233 lb 6.4 oz) 09/12/21 106.6 kg (235 lb) 09/09/21 102.8 kg (226 lb 9.6 oz) 09/05/21 106.8 kg (235 lb 6.4 oz) 08/26/21 102.8 kg (226 lb 9.6 oz) 08/19/21 100.2 kg (221 lb) Assessment: Estimated needs: Calories: 1865 (25 kcal/kg IBW) Protein: 89-112 grams (1.2-1.5 g/kg IBW) Nutrition Focused Physical Exam (NFPE): Not performed Nutrition intake and intake history/Interview: Luis Manuel reported a good appetite today and captain room service, remote mortgage underwriter ordered breakfast for pt. He normally eats 3 meals/day or has small, frequent meals. Reported no recent wt loss, had lost wt on previous admits and has been able to regain some wt. Declined snacks at this time. He doesn't consistently track ileostomy output at home but is familiar with foods to thicken output and his familiar w/diet. Pt reported he has Food Safety for People with Cancer booklet, reviewed higher/lower risk foods with pt, no questions at this time. Protein-calorie Malnutrition: Not enough data to assess (Alis et al, JPEN J Parenteral Enteral Nutr. 2011; 36(3): 273-83) Nutrition to continue to follow up while inpatient Thank you, Claudia Claros RD Pager #:[phone] Luis Manuel Goodrich Jr., MD - 10/17/2021 7:53 AM EST Inpatient Hematology/Oncology/SCT Progress Note Patient info: Name: Luis Manuel Mobley Jr. : 1960 PCP: LEISA Munguia PCP phone number: [phone] Date of Admission: 10/15/2021 ( Hospital Day 2 days ) Service: Hem/Onc Team A pg [phone] (09/03) Responsible Attending:Luis Manuel Goodrich Jr., MD ID: Luis Manuel Butts Kishor is a 61 y.o. 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 24 Hour Events: Received his day -6 infusion without issues Repleting phos this AM (1.9) Lasix 20mg for weight gain (109.5 from 107.1kg on admission) NAOE Subjective: Luis Manuel is feeling well at this baseline without any symptoms. Vitals: Last value Range last 24 hrs Temperature Temp: 36.5 ??C (97.7 ??F) Temp: [36.4 ??C (97.5 ??F)-37 ??C (98.6 ??F)] Heart Rate Heart Rate: 78 Heart Rate: [78] Blood Pressure BP: 117/79 BP: (90-118)/(47-79) Respiratory Rate Resp: 16 Resp: [16-18] SpO2 SpO2: 98 % SpO2: [95 %-99 %] Intake/Output Summary (Last 24 hours) at 10/17/2021 0753 Last data filed at 10/17/2021 0400 Gross per 24 hour Intake 5572 ml Output 3200 ml Net 2372 ml Patient Vitals for the past 168 hrs: Weight 10/17/21 0320 109.5 kg (241 lb 6.5 oz) 10/16/21 1521 107.8 kg (237 lb 10.5 oz) 10/16/21 0340 106.5 kg (234 lb 12.6 oz) 10/15/21 1415 107.1 kg (236 lb 1.8 oz) Exam: GENERAL:?Well appearing NAD lying in hospital bed, able to sit at EOB without issues. CARDIOVASCULAR:??rrr no mrg PULMONARY:??CTAB GASTROINTESTINAL:??Abdomen soft nontender to palpation w +BS. Colostomy with soft stool in place. SKIN:??No rashes, bruises or petechiae. ?? EXT: trace pitting edema of bilateral ankles. NEUROLOGICAL:??Alert and oriented to person, place and time. No focal deficits Medications: Scheduled Meds: ??? potassium, sodium phosphates 3 g Oral 4 Times Daily ??? busulfan (Busulfex) in sodium chloride 0.9% 250 mL infusion 204 mg Intravenous Q24H ??? sodium chloride 0.9 % (flush) 5 mL Intravenous BID ??? metoprolol tartrate 12.5 mg Oral Q6H PIERCE ??? vancomycin 125 mg Oral BID ??? flecainide 50 mg Oral BID ??? [START ON 10/19/2021] ondansetron 16 mg Intravenous Once ??? acetaminophen 650 mg Oral Q5H ??? [START ON 10/18/2021] acetaminophen 650 mg Oral Q5H ??? diphenhydrAMINE 50 mg Intravenous Q5H ??? [START ON 10/18/2021] diphenhydrAMINE 50 mg Intravenous Q5H ??? methylPREDNISolone sodium succinate 1 mg/kg/dose (Treatment Plan Adjusted) Intravenous Q5H ??? [START ON 10/18/2021] methylPREDNISolone sodium succinate 1 mg/kg/dose (Treatment Plan Adjusted) Intravenous Q5H ??? phenytoin ER 300 mg Oral Daily ??? pantoprazole EC 40 mg Oral Daily ??? supersaturated calcium phosphate 30 mL Oral 4 Times Daily ??? [START ON 10/22/2021] fluconazole 400 mg Oral Daily ??? [START ON 10/22/2021] levoFLOXacin 750 mg Oral QAM ??? acyclovir 800 mg Oral BID ??? sulfamethoxazole-trimethoprim DS 1 tablet Oral Daily ??? [START ON 11/21/2021] sulfamethoxazole-trimethoprim DS 1 tablet Oral Daily ??? [START ON 10/20/2021] tacrolimus 0.03 mg/kg/dose (Treatment Plan Adjusted) Oral 2 times per day ??? ursodioL 300 mg Oral Daily with breakfast ??? ursodioL 600 mg Oral Daily with dinner ??? fludarabine (Fludara) infusion 30 mg/m2/dose (Treatment Plan Adjusted) Intravenous Q24H ??? anti-thymocyte immune glob (rabbit) (Thymoglobulin) IV 2 mg/kg/dose (Treatment Plan Adjusted) Intravenous Once ??? [START ON 10/18/2021] anti-thymocyte immune glob (rabbit) (Thymoglobulin) IV 2.5 mg/kg/dose (Treatment Plan Adjusted) Intravenous Once ??? [START ON 10/23/2021] metHOTREXate (PF) 5 mg/m2/dose (Treatment Plan Adjusted) Intravenous Once ??? [START ON 10/25/2021] metHOTREXate (PF) 5 mg/m2/dose (Treatment Plan Adjusted) Intravenous Once ??? [START ON 10/28/2021] metHOTREXate (PF) 5 mg/m2/dose (Treatment Plan Adjusted) Intravenous Once ??? [START ON 11/02/2021] metHOTREXate (PF) 5 mg/m2/dose (Treatment Plan Adjusted) Intravenous Once ??? [START ON 10/22/2021] acetaminophen 650 mg Oral Once ??? [START ON 10/22/2021] diphenhydrAMINE 50 mg Oral Once ??? [START ON 10/29/2021] filgrastim-sndz 600 mcg Subcutaneous Daily ??? enoxaparin 100 mg Subcutaneous Daily Continuous Infusions: ??? sodium chloride 0.9% 150 mL/hr (10/17/21 0608) ??? [START ON 10/22/2021] sodium chloride 0.9% PRN Meds:.sodium chloride 0.9 % (flush), lidocaine, LORazepam, [START ON 10/19/2021] ondansetron, prochlorperazine, furosemide, furosemide, potassium chloride ER, potassium chloride ER, potassium chloride, magnesium sulfate, magnesium sulfate, potassium phosphate, potassium phosphate, [START ON 10/22/2021] famotidine, [START ON 10/22/2021] diphenhydrAMINE, [START ON 10/22/2021] methylPREDNISolone sodium succinate, heparin, porcine, sodium chloride 0.9 % (flush) Labs: Recent Labs 10/16/2134410/15/21 0815 WBC 3.5* 4.2 HGB 8.4* 9.3* HCT 25.4* 27.4* PLATELET 106* 127* NEUTROABS 1.94 2.79 Recent Labs 10/17/21 0310 10/16/21 0345 10/15/21 0815 NA 140 139 139 K 4.2 4.1 4.5 CL 112* 107 108* CO2 15* 21* 18* BUN 15 21* 28* CREATININE 1.13 1.11 1.09 Recent Labs 10/17/21 0310 10/16/21 0345 10/15/21 0815 CALCIUM 8.5 9.1 9.6 MAGNESIUM 0.82 0.67* -- PHOS 1.9* 4.5 -- Recent Labs 10/17/21 0310 10/16/21 0345 10/15/21 0815 AST 30 28 30 ALT 32 31 37 ALKPHOS 87 94 104 BILITOT <0.2* 0.2 0.2 BILIDIR <0.1 0.1 -- No results for input(s): INR, PT, PTT in the last 72 hours. Microbiology: Microbiology Results (Last 30 days) Procedure Component Value Units Date/Time COVID-19 PCR [[id number]] Collected: 10/15/212032 Lab Status: Final result Specimen: Nasopharyngeal Swab Updated: 10/16/21 0004 SARS-CoV-2 RNA PCR Not Detected Comment: This result should be interpreted in combination with the clinical observations, patient history and epidemiological information. For testing of asymptomatic individuals, assay performance characteristics and clinical utility have not been evaluated. Testing for SARS-CoV-2 (Severe acute respiratory syndrome coronavirus 2, formerly known as 2019 novel coronavirus or 2019-nCoV) to aid in the diagnosis of COVID-19 is performed using the Simplexa COVID-19 Direct Assay by [employer] as authorized by the FDA issued Emergency Use Authorization (EUA). This assay is intended for In-vitro Diagnostic (IVD) use with nasopharyngeal swabs collected from individuals meeting the CDC criteria for testing. The assay is performed based on the instructions for use and additional guidance provided by the FDA. Testing is performed in the Microbiology Laboratory within the Department of Pathology and Laboratory Medicine at [facility], certified under the Clinical Laboratory Improvement Amendments of 1988 (CLIA), 42 U.S.C. section 263a, to perform high complexity tests. Assay performance has been verified according to clinical laboratory regulatory requirements. Test results are provided above. A result of Not Detected indicates that the viral RNA target is not present but does not preclude SARS-CoV-2 infection. False negative results may occur if a specimen is improperly collected, transported or handled; if amplification inhibitors are present; or if inadequate numbers of viral particles are present in the specimen. A result of Detected suggests a current or recent infection and the patient is presumed to be infected. Positive and negative predictive values for this test are highly dependent on disease prevalence. A result of Invalid indicates the inability to conclusively determine the presence or absence of SARS-CoV-2 RNA in the sample which can be due to a variety of factors. Recollection is recommended in the case of an invalid result. CDC COVID-19 criteria for testing on human specimens and clinical management guidance information are available at the CDC Coronavirus Disease 2019 (COVID-19) webpage under Information for Healthcare Professionals (https://www.cdc.gov/coronavirus/2019-ncov/hcp/index.html). Additional information about this and other EUA tests can be found in provider and patient fact sheets at the following FDA website: https://www.fda.gov/medical-devices/ecilclfscgb-weodugs-7810-qxudd-82-vfnltsqzv- zes-fciptdapnamyja-ooocewc-devices/ipfob-gesfbnhdyab-bgbe SARS-CoV-2 Source ULTRASOUND SPEC Swab Pertinent radiology/diagnostic studies: ASSESSMENT/PLAN: Luis Manuel Mobley Jr. is a 61 y.o. 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 ??He is now at day approximately +77??(10/15/21) of venetoclax plus gilteritinib therapy (day 1 ~07/31/2021) which have been held since 10/08. ? Luis Manuel Mobley Jr. is feeling well today. He had no reaction to his ATG and is feeling well this AM without new symptoms. Will plan to continue with beacon plan. For his weight gain we will diurese againthis PM if he is not net negative following his 20mg of lasix this AM. Today is day -5. ?? Plan: Day (-7): Fludarabine: Day (-6): Fludarabine, Busulfan, Rabbit ATG: Day (-5): Fludarabine, Busulfan, Rabbit ATG: Day (-4): Fludarabine, Busulfan, Rabbit ATG: Day (-3): Fludarabine, Busulfan: Day (0): Stem Cell Infusion: Day (+1): metHOTREXate: Day (+3): metHOTREXate: Day (+6): metHOTREXate: Day (+11): metHOTREXate: General - q4h vitals - strict Is/Os 2x daily - weigh patient 2x daily, notify provider if weight increases by 1kg or more in 12 hour period ?- lasix 20mg IV prn weight gain >1 kg above admission baseline ?- lasix 20mg IV for weight gain 1 kg over 12 hours or input exceeding output by greater than 1,000 ml/12h - neutropenic precautions - incentive spirometry q2h while awake - activity as tolerated - electrolyte replacement ?? Chemotherapy/Support - Busulfan 204mg??day (-6) to day (-3) -??Fludarabine??61??mg 102ml infusion once over 30 minutes day -7 Then every 24 hours at 0900 for 4 doses day (-6) to day (-3) - Rabbit ATG??124.8mg over 10 hours day (-6), 166.4mg on day (-5) 208??on day (-4).?? - Day 0 stem cell infusion. Premedicate with acetaminophen 650mg, diphenhydramine 50mg) - Methotrexate??10mg??day (+1), day (+3), day (+6), day (+11). Hold for serum creatinine >2, bilirubin >5, fluid accumulation (large effusion or ascites), severe mucositis if potential need for intubation. - filgrastim??600mcg qd starting day (+7) until ANC >1500 ?? Laboratory Monitoring - weekly CMV PCR starting day +10, then weekly thereafter - IgG every 2 weeks starting day +1 to day +100 - U/A s/ reflex culture on admission, then daily on days -2, -1, 0? Transfusion parameters - Hgb <??7.0 - PLT <10, or if febrile??or bleeding??<20 - keep active T&S once hgb <8 ?? Prophylaxis Seizure ppx ?-phenytoin 300 day (-6) through (-1) - GI ppx ?- pantoprazole 40mg qd - mucositis ppx ?- supersaturated calcium phosphate oral solution 30ml 4x daily starting on admission until resolution of mucositis and ANC ?>500 - infection ppx ?- fluconazole 400mg qd starting day (0) ?- levofloxacin 750mg qd starting day (0) until ANC >500 ?- acyclovir 800mg bid starting day (-7) ?- bactrim DS 1 tablet daily from day (-7) through day (-2) ?- bactrim DS 1 tablet MWF starting day (+30) - GVHD ppx?-??Tacrolimus??1.5mg BID??starting day (- 2)?target 5-10 trough - VOD ppx ?- lovenox 40mg qd day (-7) through (+30) per Dr. Modi's note, he should continue lovenox 100mg qd until plt apx <40 then switch to VOD ppx dose. ?- ursodiol 300mg qAM??&??qPM day (-7) through day (+30) Hydration - NaCl 0.9% continuous 250ml/hr x2h day (-6)??at 0800 for 2 hours prior to start of busulfan - NaCl 0.9% continuous??150ml/hr x??day (-6) ??Through (-3) ?? Pain/Nausea/Appetite - avoid acetaminophen through??day??(-3) - avoid steroid antiemetics - palonosetron 0.25mg day (-6) - aprepitant 130mg day (-6) prior to??busulfan - lorazepam 0.5mg IV q4h prn nausea, anxiety - ondansetron??8mg q8h prn nausea, vomiting beginning day (-3) - prochlorperazine 10mg IV q6h prn nausea, vomiting - use ondansetron >??prochlorperazine or promethazine >??lorazepam >??metoclopramide - olanzapine 5mg qhs starting day (-3) for 5 doses? #Paroxysmal Afib - Continue home metoprolol (convert to tartrate), flecainide ?? #Hx of provoked PE in Apr 2021 - On lovenox 100mg qd (held prior to central line placement) - Continue until plt reach apx 40 f/b switch to prophylactic dosing. ?? #Hx of C diff colitis - Continue home PO vancomycin - Ostomy care ?? #Routine DVT PPx: home lovenox 100mg qd until plt <40 then switch to VOD ppx dosing. Diet: Neutropenic (BMT) diet Dispo: 1-[place] CODE STATUS: Attempt Cardiopulmonary Resuscitation - Inpatient Aurelio Morris MD PGY1 Internal Medicine 10/17/2021 Heme/Onc/BMT Team A Pager #[phone] Inpatient BMT/Hematology Staff Addendum I have independently interviewed and examined this patient and have personally reviewed the relevantclinical, laboratory and radiological data with the housestaff. ??Please refer to the comprehensive admit note from today, with which I concur, for complete details of our encounter with this patient. ??I have reviewed and endorse the plan as outlined and have made any additions/corrections below. ?? This patient meets criteria for inpatient level of care based on the above medical complexity. ?? 61 year old man??with??h/o high-risk (FLT3+) AML??adm???d on 10/15 for VOM-Fpiq-MLK via Flu/Bu/ATG regimen. Course marked by dev't of C difficile colitis with toxic megacolon requiring suzie-colectomy, with ostomy, then dev't of 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 Now day -5, and Luis Manuel is tolerating his conditioning well, thus far. We are diuresing today due to net POS wt (+2.5 kg) and also repleting electrolytes, as nec. No nausea or other new focal complaints. Luis Manuel is overall doing quite well. ? Above related to Luis Manuel on rounds today, and he is onboard with this plan. ? Central Venous Access Statement of Need ?? Can the central IV access be removed?[ ] Yes?[x] No?[ ] N/A ? If no, reason for central access: [ ]?TPN?]?Chemotherapy [ ]?IV Antibiotics [ ]?Vasoactive medication [ ]?Vesicant medication [ ]?Active resuscitation with fluid or blood products ?? [ ]?Poor vascular access as determined by vascular access [x??]?Stem cell transplant patient or AML induction [ ]?Other: ? TACHO Goodrich MD Heme/Onc Section? Mark Felder RN - 10/17/2021 6:48 AM EST Patient Summary Reason for admission: Day -5 (10/17) of Allo MUD SCT for AML conditioned with Flu/Bu/ATG/MTX Relevant PMH: s/p bowel resection/colectomy d/t toxic megacolon, Cdiff, Bilateral PE Significant 24 hour events: Fludarabine administered. 3/2PM: ATG completed without issues, vss. BP is soft 90s-100s/50s. Independent with ostomy care. Lasix given this AM for weight gain. K phos started per PRN orders. Chemo plan & supportive medication: Fludarabine/ Busulfan/ATG/MTX day -5 (10/17/21) Baseline Weight: 107.1 kg AM weight: 109.5 (10/17/21) PM weight: 107.8 kg Action List Tunneled line dressing change Continue [place] Plan Ostomy care, may need high output bag applied, supplied delivered to room Encourage ambulation Encourage po intake Monitor weight, assess need for prn lasix Next chemo due 10/17, FLU/BU/ATG Denise Madera RN - 10/16/2021 5:42 PM EST Patient Summary Reason for admission: AML with SU[employer] involvement; Allogeneic MUD SCT; Fludarabine/ Busulfan/ATG/MTX day -6 (10/16/21) Relevant PMH: s/p bowel resection/colectomy d/t toxic megacolon, Cdiff, Bilateral PE Pt reports feeling well this morning. Premedicated with Aloxi and Emend; Fludarabine and Busulfan administered per policy, hydrated with NS @ 250 cc/hr for 2 hours prior to Busulfan then decreased to 150 cc/hr. Premedicated for ATG with Tylenol, Benadryl and Solumedrol; ATG infusing over 10 hrs, frequent vital signs monitored and stable so far, repeat premeds to be given 1/2 way through ATG infusion.Magnesium replaced per protocol. Weight stable near baseline. Ambulated in hallway x1 mile, eating/drinking well. Ostomy nurse to see pt today, supplies left in room. Action List Continue [place] Plan Ostomy care, may need high output bag applied, supplied delivered to room Encourage ambulation Encourage po intake Monitor weight, assess need for prn lasix Monitor vital Q 1 hour until completion of ATG Next chemo due 10/17, FLU/BU/ATG Evelina Martino - 10/16/2021 1:30 PM EST Therapeutic massage given by VIRGINIA Higuera. Luis Manuel house, stating Very relaxing! This is great! [facility] Team will try and see 2-3x/week. Claudia Claros RD - 10/16/2021 8:42 AM EST Nutrition Consult Note Luis Manuel Benjamín Mobley Jr. is a 61 y.o. 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 Reason for intervention: cx: HSCT Patient Nutrition Recommendations: BMT diet Encourage good po intake Monitor wt - trend Monitor lytes - replete as indicated Active Orders Diet Neutropenic (BMT) diet Frequency: Effective Now Number of Occurrences: Until Specified Order Comments: No grapefruit products Lab Results Component Value Date NA 139 10/16/2021 K 4.1 10/16/2021 CL 107 10/16/2021 CO2 21 (L) 10/16/2021 BUN 21 (H) 10/16/2021 CREATININE 1.11 10/16/2021 ESTGFR 71 10/16/2021 MAGNESIUM 0.67 (L) 10/16/2021 CALCIUM 9.1 10/16/2021 PHOS 4.5 10/16/2021 AST 28 10/16/2021 ALT 31 10/16/2021 ALKPHOS 94 10/16/2021 BILITOT 0.2 10/16/2021 BILIDIR 0.1 10/16/2021 TRIG 171 07/13/2021 HA1C 4.8 07/13/2021 [id number] 1,799 (H) 08/01/2021 SFOLATE 5.6 08/01/2021 IRON 144 05/06/2021 No results found for: POCGLU Skin Status: Shift Pressure Injury Prevention Occiput: No Injury Thoracic Spine: No Injury Sacral: No Injury Ischial - left: No Injury Ischial - right: No Injury Heel - left: No Injury Heel - right: No Injury Elbow - left: No Injury Elbow - right: No Injury Device Sites: IV sites Other Sites: Ostomy, Tunneled line, Metiport Relevant medications: acyclovir, methotrexate, solu-medrol, zofran, protonix, dilantin, bactrim, caphosol, prograf, NS at 250 ml/hr Last Bowel Movement: 10/15/21 Admit Weight: 107.1 kg Estimated body mass index is 33.99 kg/m?? as calculated from the following: Height as of this encounter: 177 cm (5' 9.69). Weight as of this encounter: 106.5 kg (234 lb 12.6 oz). Anton Body Weight: 74.6 kg Usual Body Weight: see below Wt Readings from Last 10 Encounters: 10/16/21 106.5 kg (234 lb 12.6 oz) 10/15/21 107.8 kg (237 lb 9.6 oz) 10/04/21 107.2 kg (236 lb 6.4 oz) 09/27/21 109 kg (240 lb 6.4 oz) 09/16/21 105.9 kg (233 lb 6.4 oz) 09/12/21 106.6 kg (235 lb) 09/09/21 102.8 kg (226 lb 9.6 oz) 09/05/21 106.8 kg (235 lb 6.4 oz) 08/26/21 102.8 kg (226 lb 9.6 oz) 08/19/21 100.2 kg (221 lb) Assessment: Estimated needs: Calories: 1865 (25 kcal/kg IBW) Protein: 89-112 grams (1.2-1.5 g/kg IBW) Nutrition Focused Physical Exam (NFPE): Not performed Nutrition intake and intake history/Interview: Attempted to call patient today, unable to reach. Previously seen by outpatient [facility] RD for BMT diet edu, will follow up w/pt tomorrow. Protein-calorie Malnutrition: Not enough data to assess (RAFA Barnes J Parenteral Enteral Nutr. 2012 December; 36(3): 273-83) Nutrition to continue to follow up while inpatient Thank you, Claudia Claros RD Pager #:[phone] Josh Jeffers MD - 10/16/2021 7:43 AM EST INTERVENTIONAL RADIOLOGY Inpatient Progress Note Admitted 10/15/2021 Procedure(s): Tunneled L single-lumen catheter implant Post-procedure day: #1 Time of patient encounter: 7:35AM 24 Hour Events: No acute overnight event. Left tunneled central venous catheter functional, attachedto bedside IV. Site clean dry and intact. Last Value 24 Hour Range Temperature 36.8 ??C (98.2 ??F) Temp: [36.5 ??C (97.7 ??F)-37 ??C (98.6 ??F)] Heart Rate 65 Heart Rate: [65-116] Blood Pressure 109/73 BP: (96-120)/(48-80) Respiratory Rate 17 Resp: [16-26] SpO2 99 % SpO2: [96 %-100 %] Physical Exam GEN No distress, A&O CARDS acyanotic LUNGS nonlabored breathing ABD Non tender, nondistended Vasc ACCESS left tunneled central venous catheter site clean dry and intact. Right Mediport site clean dry and intact. Drains/Tubes: Left tunneled central venous catheter Labs: Last 3 wbc, hgb, hct plt Recent Labs 10/16/21 0345 10/15/21 0815 10/07/21 1529 WBC 3.5* 4.2 4.6 HGB 8.4* 9.3* 9.0* HCT 25.4* 27.4* 26.3* PLATELET 106* 127* 119* Imaging: No new imaging Assessment: 61-year-old male with AML complicated by [employer] involvement underwent left tunneled CVC placement with IR on 10/15/2021. Left tunneled CVC functional. Plan: -IR will sign off. Luis Manuel Goodrich Jr., MD - 10/16/2021 7:16 AM EST Inpatient Hematology/Oncology/SCT Progress Note Patient info: Name: Luis Manuel Mobley Jr. : 1960 PCP: LEISA Munguia PCP phone number: [phone] Date of Admission: 10/15/2021 ( Hospital Day 1 day ) Service: Hem/Onc Team A pg [id number] (09/03) Responsible Attending:Luis Manuel Goodrich Jr., MD ID: Luis Manuel Mobley Jr. is a 61 y.o. 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 24 Hour Events: Admitted, received his day -7 infusion without issues NAOE Subjective: Luis Manuel is feeling well at this baseline without any symptoms. Vitals: Last value Range last 24 hrs Temperature Temp: 36.7 ??C (98 ??F) Temp: [36.5 ??C (97.7 ??F)-37 ??C (98.6 ??F)] Heart Rate Heart Rate: 65 Heart Rate: [65-116] Blood Pressure BP: 109/74 BP: (96-120)/(48-80) Respiratory Rate Resp: 16 Resp: [16-26] SpO2 SpO2: 100 % SpO2: [96 %-100 %] Intake/Output Summary (Last 24 hours) at 10/16/2021 0716 Last data filed at 10/16/2021 0338 Gross per 24 hour Intake 738 ml Output 2025 ml Net -1287 ml Patient Vitals for the past 168 hrs: Weight 10/16/21 0340 106.5 kg (234 lb 12.6 oz) 10/15/21 1415 107.1 kg (236 lb 1.8 oz) Exam: GENERAL:?Well appearing NAD lying in hospital bed, able to sit at EOB without issues. CARDIOVASCULAR:??rrr no mrg PULMONARY:??CTAB GASTROINTESTINAL:??Abdomen soft nontender to palpation w +BS. Colostomy with soft stool in place. SKIN:??No rashes, bruises or petechiae. ?? EXT: trace pitting edema of bilateral ankles. NEUROLOGICAL:??Alert and oriented to person, place and time. No focal deficits Medications: Scheduled Meds: ??? sodium chloride 0.9 % (flush) 5 mL Intravenous BID ??? metoprolol tartrate 12.5 mg Oral Q6H PIERCE ??? vancomycin 125 mg Oral BID ??? flecainide 50 mg Oral BID ??? palonosetron 0.25 mg Intravenous Once ??? aprepitant 130 mg Intravenous Once ??? [START ON 10/19/2021] ondansetron 16 mg Intravenous Once ??? acetaminophen 650 mg Oral Q5H ??? [START ON 10/17/2021] acetaminophen 650 mg Oral Q5H ??? [START ON 10/18/2021] acetaminophen 650 mg Oral Q5H ??? diphenhydrAMINE 50 mg Intravenous Q5H ??? [START ON 10/17/2021] diphenhydrAMINE 50 mg Intravenous Q5H ??? [START ON 10/18/2021] diphenhydrAMINE 50 mg Intravenous Q5H ??? methylPREDNISolone sodium succinate 1 mg/kg/dose (Treatment Plan Adjusted) Intravenous Q5H ??? [START ON 10/17/2021] methylPREDNISolone sodium succinate 1 mg/kg/dose (Treatment Plan Adjusted) Intravenous Q5H ??? [START ON 10/18/2021] methylPREDNISolone sodium succinate 1 mg/kg/dose (Treatment Plan Adjusted) Intravenous Q5H ??? phenytoin 300 mg Oral BID ??? phenytoin ER 300 mg Oral Daily ??? pantoprazole EC 40 mg Oral Daily ??? supersaturated calcium phosphate 30 mL Oral 4 Times Daily ??? [START ON 10/22/2021] fluconazole 400 mg Oral Daily ??? [START ON 10/22/2021] levoFLOXacin 750 mg Oral QAM ??? acyclovir 800 mg Oral BID ??? sulfamethoxazole-trimethoprim DS 1 tablet Oral Daily ??? [START ON 11/21/2021] sulfamethoxazole-trimethoprim DS 1 tablet Oral Daily ??? [START ON 10/20/2021] tacrolimus 0.03 mg/kg/dose (Treatment Plan Adjusted) Oral 2 times per day ??? ursodioL 300 mg Oral Daily with breakfast ??? ursodioL 600 mg Oral Daily with dinner ??? fludarabine (Fludara) infusion 30 mg/m2/dose (Treatment Plan Adjusted) Intravenous Q24H ??? busulfan (Busulfex) in sodium chloride 0.9% 250 mL infusion 100 mg/m2/dose (Treatment Plan Adjusted) Intravenous Q24H ??? anti-thymocyte immune glob (rabbit) (Thymoglobulin) IV 1.5 mg/kg/dose (Treatment Plan Adjusted) Intravenous Once ??? [START ON 10/17/2021] anti-thymocyte immune glob (rabbit) (Thymoglobulin) IV 2 mg/kg/dose (Treatment Plan Adjusted) Intravenous Once ??? [START ON 10/18/2021] anti-thymocyte immune glob (rabbit) (Thymoglobulin) IV 2.5 mg/kg/dose (Treatment Plan Adjusted) Intravenous Once ??? [START ON 10/23/2021] metHOTREXate (PF) 5 mg/m2/dose (Treatment Plan Adjusted) Intravenous Once ??? [START ON 10/25/2021] metHOTREXate (PF) 5 mg/m2/dose (Treatment Plan Adjusted) Intravenous Once ??? [START ON 10/28/2021] metHOTREXate (PF) 5 mg/m2/dose (Treatment Plan Adjusted) Intravenous Once ??? [START ON 11/02/2021] metHOTREXate (PF) 5 mg/m2/dose (Treatment Plan Adjusted) Intravenous Once ??? [START ON 10/22/2021] acetaminophen 650 mg Oral Once ??? [START ON 10/22/2021] diphenhydrAMINE 50 mg Oral Once ??? [START ON 10/29/2021] filgrastim-sndz 600 mcg Subcutaneous Daily ??? enoxaparin 100 mg Subcutaneous Daily Continuous Infusions: ??? sodium chloride 0.9% ??? sodium chloride 0.9% ??? [START ON 10/22/2021] sodium chloride 0.9% PRN Meds:.sodium chloride 0.9 % (flush), lidocaine, LORazepam, [START ON 10/19/2021] ondansetron, prochlorperazine, furosemide, furosemide, potassium chloride ER, potassium chloride ER, potassium chloride, magnesium sulfate, magnesium sulfate, potassium phosphate, potassium phosphate, [START ON 10/22/2021] famotidine, [START ON 10/22/2021] diphenhydrAMINE, [START ON 10/22/2021] methylPREDNISolone sodium succinate, heparin, porcine, sodium chloride 0.9 % (flush) Labs: Recent Labs 10/16/2134410/15/21 0815 WBC 3.5* 4.2 HGB 8.4* 9.3* HCT 25.4* 27.4* PLATELET 106* 127* NEUTROABS 1.94 2.79 Recent Labs 10/16/21 0345 10/15/21 0815 NA 139 139 K 4.1 4.5 CL 107 108* CO2 21* 18* BUN 21* 28* CREATININE 1.11 1.09 Recent Labs 10/16/21 0345 10/15/21 0815 CALCIUM 9.1 9.6 MAGNESIUM 0.67* -- PHOS 4.5 -- Recent Labs 10/16/21 0345 10/15/21 0815 AST 28 30 ALT 31 37 ALKPHOS 94 104 BILITOT 0.2 0.2 BILIDIR 0.1 -- No results for input(s): INR, PT, PTT in the last 72 hours. Microbiology: Microbiology Results (Last 30 days) Procedure Component Value Units Date/Time COVID-19 PCR [[id number]] Collected: 10/15/212032 Lab Status: Final result Specimen: Nasopharyngeal Swab Updated: 10/16/21 0004 SARS-CoV-2 RNA PCR Not Detected Comment: This result should be interpreted in combination with the clinical observations, patient history and epidemiological information. For testing of asymptomatic individuals, assay performance characteristics and clinical utility have not been evaluated. Testing for SARS-CoV-2 (Severe acute respiratory syndrome coronavirus 2, formerly known as 2019 novel coronavirus or 2019-nCoV) to aid in the diagnosis of COVID-19 is performed using the Simplexa COVID-19 Direct Assay by [employer] as authorized by the FDA issued Emergency Use Authorization (EUA). This assay is intended for In-vitro Diagnostic (IVD) use with nasopharyngeal swabs collected from individuals meeting the CDC criteria for testing. The assay is performed based on the instructions for use and additional guidance provided by the FDA. Testing is performed in the Microbiology Laboratory within the Department of Pathology and Laboratory Medicine at [facility], certified under the Clinical Laboratory Improvement Amendments of 1988 (CLIA), 42 U.S.C. section 263a, to perform high complexity tests. Assay performance has been verified according to clinical laboratory regulatory requirements. Test results are provided above. A result of Not Detected indicates that the viral RNA target is not present but does not preclude SARS-CoV-2 infection. False negative results may occur if a specimen is improperly collected, transported or handled; if amplification inhibitors are present; or if inadequate numbers of viral particles are present in the specimen. A result of Detected suggests a current or recent infection and the patient is presumed to be infected. Positive and negative predictive values for this test are highly dependent on disease prevalence. A result of Invalid indicates the inability to conclusively determine the presence or absence of SARS-CoV-2 RNA in the sample which can be due to a variety of factors. Recollection is recommended in the case of an invalid result. CDC COVID-19 criteria for testing on human specimens and clinical management guidance information are available at the CDC Coronavirus Disease 2019 (COVID-19) webpage under Information for Healthcare Professionals (https://www.cdc.gov/coronavirus/2019-ncov/hcp/index.html). Additional information about this and other EUA tests can be found in provider and patient fact sheets at the following FDA website: https://www.fda.gov/medical-devices/gpjwpozpalx-wvndwwl-3188-hwxyl-59-clwghqkcg- cds-msnruukupmpjpc-dnqjdev-devices/lyndk-cloxyryfohf-lkpy SARS-CoV-2 Source ULTRASOUND SPEC Swab Pertinent radiology/diagnostic studies: ASSESSMENT/PLAN: Luis Manuel Mobley JrNabil is a 61 y.o. 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 ??He is now at day approximately +77??(10/15/21) of venetoclax plus gilteritinib therapy (day 1 ~07/31/2021) which have been held since 10/08. ? Luis Manuel Mobley Jr. is feeling well today. We will plan to continue his home medications to manage his afib (metop, flecainide) and hx of c diff (PO vanc). ??He is feeling well this AM without new symptoms, will plan to continue with beacon plan. Today is day -6. ?? Plan: Day (-7): Fludarabine: Day (-6): Fludarabine, Busulfan, Rabbit ATG: Day (-5): Fludarabine, Busulfan, Rabbit ATG: Day (-4): Fludarabine, Busulfan, Rabbit ATG: Day (-3): Fludarabine, Busulfan: Day (0): Stem Cell Infusion: Day (+1): metHOTREXate: Day (+3): metHOTREXate: Day (+6): metHOTREXate: Day (+11): metHOTREXate: General - q4h vitals - strict Is/Os 2x daily - weigh patient 2x daily, notify provider if weight increases by 1kg or more in 12 hour period ?- lasix 20mg IV prn weight gain >1 kg above admission baseline ?- lasix 20mg IV for weight gain 1 kg over 12 hours or input exceeding output by greater than 1,000 ml/12h - neutropenic precautions - incentive spirometry q2h while awake - activity as tolerated - electrolyte replacement ?? Chemotherapy/Support - Busulfan 204mg??day (-6) to day (-3) -??Fludarabine??61??mg 102ml infusion once over 30 minutes day -7 Then every 24 hours at 0900 for 4 doses day (-6) to day (-3) - Rabbit ATG??124.8mg over 10 hours day (-6), 166.4mg on day (-5) 208??on day (-4).?? - Day 0 stem cell infusion. Premedicate with acetaminophen 650mg, diphenhydramine 50mg) - Methotrexate??10mg??day (+1), day (+3), day (+6), day (+11). Hold for serum creatinine >2, bilirubin >5, fluid accumulation (large effusion or ascites), severe mucositis if potential need for intubation. - filgrastim??600mcg qd starting day (+7) until ANC >1500 ?? Laboratory Monitoring - weekly CMV PCR starting day +10, then weekly thereafter - IgG every 2 weeks starting day +1 to day +100 - U/A s/ reflex culture on admission, then daily on days -2, -1, 0? Transfusion parameters - Hgb <??7.0 - PLT <10, or if febrile??or bleeding??<20 - keep active T&S once hgb <8 ?? Prophylaxis Seizure ppx ?-phenytoin 300 day (-6) through (-1) - GI ppx ?- pantoprazole 40mg qd - mucositis ppx ?- supersaturated calcium phosphate oral solution 30ml 4x daily starting on admission until resolution of mucositis and ANC ?>500 - infection ppx ?- fluconazole 400mg qd starting day (0) ?- levofloxacin 750mg qd starting day (0) until ANC >500 ?- acyclovir 800mg bid starting day (-7) ?- bactrim DS 1 tablet daily from day (-7) through day (-2) ?- bactrim DS 1 tablet MWF starting day (+30) - GVHD ppx?-??Tacrolimus??1.5mg BID??starting day (- 2)?target 5-10 trough - VOD ppx ?- lovenox 40mg qd day (-7) through (30) per Dr. Modi's note, he should continue lovenox 100mg qd until plt apx <40 then switch to VOD ppx dose. ?- ursodiol 300mg qAM??&??qPM day (-7) through day (+30) Hydration - NaCl 0.9% continuous 250ml/hr x2h day (-6)??at 0800 for 2 hours prior to start of busulfan - NaCl 0.9% continuous??150ml/hr x??day (-6) ??Through (-3) ?? Pain/Nausea/Appetite - avoid acetaminophen through??day??(-3) - avoid steroid antiemetics - palonosetron 0.25mg day (-6) - aprepitant 130mg day (-6) prior to??busulfan - lorazepam 0.5mg IV q4h prn nausea, anxiety - ondansetron??8mg q8h prn nausea, vomiting beginning day (-3) - prochlorperazine 10mg IV q6h prn nausea, vomiting - use ondansetron >??prochlorperazine or promethazine >??lorazepam >??metoclopramide - olanzapine 5mg qhs starting day (-3) for 5 doses? #Paroxysmal Afib - Continue home metoprolol (convert to tartrate), flecainide ?? #Hx of provoked PE in Apr 2021 - On lovenox 100mg qd (held prior to central line placement) - Continue until plt reach apx 40 f/b switch to prophylactic dosing. ?? #Hx of C diff colitis - Continue home PO vancomycin - Ostomy care ?? #Routine DVT PPx: home lovenox 100mg qd until plt <40 then switch to VOD ppx dosing. Diet: Neutropenic (BMT) diet Dispo: [place] CODE STATUS: Attempt Cardiopulmonary Resuscitation - Inpatient Aurelio Morris MD PGY1 Internal Medicine 10/16/2021 Heme/Onc/BMT Team A Pager #[phone] Inpatient BMT/Hematology Staff Addendum PIease see my addendum from this date to pt's H+P. Note: Dr. Modi billed for the 10/15 adm'n via outpatient clinic encounter from that date. -[facility] Elenita Muniz RN - 10/16/2021 6:22 AM EST Patient Summary Reason for admission: AML with SU[employer] involvement; Allogeneic MUD SCT Relevant PMH: s/p bowel resection/colectomy d/t toxic megacolon, Cdiff, Bilateral PE Significant 24 hour events: Fludarabine administered. 3/1AM: Pt A&Ox4, VSS on RA. Mediport dressing C/D/I, no reinforcement needed at this time. TL Tunneled line Intact, no additional blood noted in dressing. Labs drawn, Mag 0.67 this AM, replaced perMAR. AM weight 106.5. Sleeping in between care. No concerns at this time. Chemo plan & supportive medication: Fludarabine/ Busulfan/ATG/MTX day -6 (10/16/21) Baseline Weight: 107.1 kg AM weight: 106.5 (10/16/21) PM weight: Action List Continue [place] Plan Monitor TL dressing Ostomy nurse Today Discharge Plan: Home meds in Rx [] Belongings in safe [] Consults: PT [x] OT [] HAY BUCKLER [] Last Flu vaccine: Last Covid Test Result: 10/15/2021 Not Detected Pati Gilbert RN - 10/15/2021 7:51 PM EST Illness Severity [x] Stable [] Watcher [] Unstable Patient Summary Reason for admission: AML with SU[employer] involvement; Allogeneic MUD SCT Relevant PMH: s/p bowel resection/colectomy d/t toxic megacolon, Cdiff, Bilateral PE Significant 24 hour events: Fludarabine administered. 3 AM: Welcomed to rm 121. Oriented to unit and safety protocols. Refused bed alarm. Ostomy nurse consult in for supplies- to visit with patient tomorrow. Mediport de-accessed and terminally flushed. Dilantin doses completed, confirmed no tylenol. VSS. Fludarabine administered as per policy and completed without issue. Loxenox administered post tunneled line placement- dressing reinforced- oncoming RN aware. Continue to monitor. Chemo plan & supportive medication: Fludarabine/ Busulfan/ATG/MTX day -7 Baseline Weight: 107.1 kg AM weight: PM weight: 107.1 Action List Continue [place] Plan Monitor TL dressing Ostomy nurse tomorrow Covid test for admission Discharge Plan: Home meds in Rx [] Belongings in safe [] Consults: PT [] OT [] HAY BUCKLER [] Last Flu vaccine: Last Covid Test Result: 07/10/2021 Not Detected documented in this encounter H&P Notes Kelli Diaz PA - 11/04/2021 11:51 AM EDT Images from the original note were not included. Interventional Radiology Focused Pre-procedure H&P: PCP: LEISA Munguia Referring Provider: Beatriz Maurice Planned procedure: Removal of tunneled left IJ central venous catheter Procedure indication: Erythema and tenderness around tunneled left IJ central venous catheter, VRE bacteremia, neutropenic fever IR workflow: Procedure request received through Interventional Radiology eDH order queue. There are no answered order specific questions. History of Present Illness: Per chart review, Luis Manuel Mobley Jr. is a 61 y.o. male with PMH of AML currently admitted to the medical floor for stem cell transplant s/p L IJ tunneled CVC on 10/15/21 with SCT on 10/22/21 complicated by neutropenic fever on 10/19/21 with 1 or 2 blood cultures positive for Strep (on cefepime), slight erythema and tenderness of tunneled CVC on 10/30, fever on 11/02/21 with repeat blood cultures positive for VRE (on cefepime, daptomycin) who presents to Interventional Radiology to undergo removal of tunneled L IJ CVC per ID recommendation. ID states VRE likely originated from a GIsource, but they still recommend CVC removal given skin findings. PLT of 13 on 11/04/21 (compared to 14 / AM s/p 1 U PLT transfusion with improvement to 18 11/03 PM) Patient will need transfusion of 1 U PLT prior to line removal. Primary team is aware and will orderPLT. Patient will get PICC line with PICC team prior to CVC removal. Patient has pertinent PMH of A fib. Remainder of patient's medical and surgical history, allergies, medications, and social/family history obtained below as previously outlined in patient's medical record. IR History: Date/Procedure?Meds given/comments 10/04/21 Mediport Placement Fentanyl 225??mcg IV, Versed 4 mg IV, tolerated well ??10/15/2021 Tunneled line Non-HD Lot #[id number] ??Fentanyl 75mcg IV Midazolam 1.5mg IV, cefazolin 2 g IV Tolerated procedure/sedation well ? Imagin11/04/21 Assessment: 61 y.o. male with VRE bacteremia presenting to Interventional Radiology for removal of tunn L IJ CVC. Plan Planned procedure: Removal of tunneled left IJ central venous catheter Labs to be performed day of procedure: No labs Sedation: No Sedation Prophylactic antibiotic : None Contrast: No contrast Additional medications for procedure: Lidocaine Position: Supine Consent: Scanned Medications to discontinue (and days held): None Cytopathology presence needed: No Case Urgency:: D- Intervention within 24 hrs Labs: Lab Results Component Value Date HGB 5.9 (CRIT) 11/04/2021 HCT 16.8 (L) 11/04/2021 WBC 0.0 (CRIT) 11/04/2021 PLATELET 13 (CRIT) 11/04/2021 INR 1.2 11/01/2021 BUN 36 (H) 11/04/2021 CREATININE 1.35 11/04/2021 ALBUMIN 3.4 11/02/2021 BILIDIR 0.2 11/02/2021 BILITOT 0.4 11/02/2021 AST 16 11/02/2021 ALT 41 11/02/2021 ALKPHOS 121 11/02/2021 Allergies: Other [unclassified drug] and Bactoshield chg [chlorhexidine gluconate] Medications: No current facility-administered medications on file prior to encounter. Current Outpatient Medications on File Prior to Encounter Medication Sig Dispense Refill ??? enoxaparin (Lovenox) 100 mg/mL Syringe Inject 100 mg subcutaneously daily. ??? phenytoin (Dilantin) 50 mg Tablet, Chewable Take 8 tablets(400 mg) at 9:00 AM and 6 tablets (300mg) at 3:00 PM on October 15, 2021 14 tablet 0 ??? acyclovir (Zovirax) 400 mg Tablet Take 1 tablet by mouth 2 times daily. 60 tablet 5 ??? levoFLOXacin (Levaquin) 750 mg Tablet Take 1 tablet by mouth daily. 30 tablet 5 ??? vancomycin (Vancocin) 125 mg Capsule Take 1 capsule by mouth 2 times daily. 60 capsule 5 ??? metoprolol succinate XL (Toprol-XL) 50 mg Tablet Sustained Release 24 hr Take 1 tablet by mouth daily. 30 tablet 5 ??? Ostomy Supplies [facility] [place] Dispense 2 boxes ( 10/box) of Adapt Barrier rings #[id number] per month. 20 each 11 ??? Colostomy Belt (Ostomy Belt Medium) [facility] [place] Dispense 1 Sensura [place] Belt #[id number] per month. 1 each 11 ??? Ostomy Supplies Powder Dispense 1 bottle of Adapt stoma powder #7960 every other month. 28.3 g 5 ??? Ostomy Supplies [facility] [place] Dispense 2 boxes (10/box) of Sensura [place] Soft Convex One-piece Pouch #[id number] month. 20 each 11 ??? Ostomy Supplies Mis Dispense 2 boxes (20/box) of Brava Elastic Barrier strips #[id number] per month. 40 each 11 ??? Ostomy Supplies [facility] [place] Dispense 1 box (50/box) of a generic no-sting skin barrier wipe per month. 50 each 11 ??? loperamide (Imodium A-D) 2 mg Capsule Take 1 capsule by mouth 3 times daily. 90 tablet 0 ??? tamsulosin (Flomax) 0.4 mg Capsule Take 1 capsule by mouth daily. 90 tablet 0 ??? flecainide (TAMBOCOR) 50 mg Tablet Take 1 tablet by mouth 2 times daily. 60 tablet 3 ??? famotidine (Pepcid) 20 mg Tablet Take 2 tablets by mouth daily. 30 tablet 12 ??? lidocaine-prilocaine (EMLA) Cream Apply to [facility] approximately 30 minutes prior to access. 30g 0 ??? venetoclax (Venclexta) 100 mg tablet Take 1 tablet (100 mg) by mouth daily for 30 days. Take with food and a large glass of water. Call clinic before starting medication. Indications: acute myeloidleukemia, a type of blood cancer 30 tablet 5 ??? sulfamethoxazole-trimethoprim DS (Bactrim DS) 800-160 mg Tablet Take 1 tablet by mouth three times a week. 12 tablet 5 ??? gilteritinib (Xospata) 40 mg tablet Take 3 tablets (120 mg) by mouth daily. Call clinic before starting medication. Indications: acute myeloid leukemia with FLT3 mutation (Patient not taking: No sig reported) 90 tablet 0 Past Medical/Surgical history: Patient Active Problem List Diagnosis Code ??? Acute leukemia C95.00 ??? Clostridium difficile colitis A04.72 ??? 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 AML (acute myeloblastic leukemia) C92.00 ??? Paroxysmal atrial fibrillation I48.0 ??? GERD (gastroesophageal reflux disease) K21.9 ??? BPH (benign prostatic hyperplasia) N40.0 Past Medical History: Diagnosis Date ??? AML (acute myeloblastic leukemia) 04/2021 ??? BPH (benign prostatic hyperplasia) ??? GERD (gastroesophageal reflux disease) ??? Paroxysmal atrial fibrillation ??? 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 ACHILLES TENDON SURGERY ??? IR MEDIPORT PLACEMENT 10/04/2021 IR Mediport Placement 10/04/2021 Kelli Diaz PA [facility] INTERVENT[facility] RAD ??? IR TUNNELED CENTRAL VENOUS ACCESS NON-DIALYSIS 10/15/2021 IR Tunneled Central Venous Access Non-Dialysis 10/15/2021 Kelli Diaz PA [facility] RAD ? ? PRO DIAGNOSTIC BONE MARROW BIOPSIES & ASPIRATIONS Right 09/12/2021 ([facility]) BONE MARROW BIOPSY AND ASPIRATION; DIAGNOSTIC performed by Parviz Modi MD [facility] ? ? PRO DIAGNOSTIC BONE MARROW BIOPSIES & ASPIRATIONS N/A 10/07/2021 ([facility]) BONE MARROW BIOPSY AND ASPIRATION; DIAGNOSTIC performed by Parviz Modi MD [facility] ??? PRO EXPLORATORY OF ABDOMEN Midline 05/26/2021 @EXPLORATORY LAPAROTOMY, WITH/WITHOUT BIOPSY(S) (WRVU 12.54) performed by Mark Hernandes MD [facility] MAIN OR ??? PRO ILEOSTOMY/JEJUNOSTOMY, NONTUBE N/A 05/28/2021 @ILEOSTOMY OR JEJUNOSTOMY, NON TUBE (WRVU 17.59) performed by Lety Walter MD at [facility] MAIN OR ??? PRO REOPEN RECENT ABD EXPLORATORY N/A 05/28/2021 @EXPLORATORY LAPAROTOMY, REOPENING OF RECENT (WRVU 17.63) performed by Lety Walter MD at [facility] MAIN OR ??? TONSILLECTOMY AND ADENOIDECTOMY ??? XR FLUORO GUIDED LUMBAR PUNCTURE N/A 07/12/2021 XR Fluoro Guided Lumbar Puncture 07/12/2021 Frances Green MD [facility] RAD XRAY ??? XR FLUORO GUIDED LUMBAR PUNCTURE FOR IT CHEMOTHERAPY N/A 07/16/2021 XR Fluoro Guided Lumbar Puncture For IT Chemotherapy 07/16/2021 Nas Patino MD [facility] RAD XRAY ??? XR FLUORO GUIDED LUMBAR PUNCTURE FOR IT CHEMOTHERAPY N/A 07/19/2021 XR Fluoro Guided Lumbar Puncture For IT Chemotherapy 07/19/2021 Shae Alford MD [facility] RAD XRAY ??? XR FLUORO GUIDED LUMBAR PUNCTURE FOR IT CHEMOTHERAPY N/A 07/25/2021 XR Fluoro Guided Lumbar Puncture For IT Chemotherapy 07/25/2021 Nas Patino MD [facility] RAD XRAY ??? XR FLUORO GUIDED LUMBAR PUNCTURE FOR IT CHEMOTHERAPY N/A 07/29/2021 XR Fluoro Guided Lumbar Puncture For IT Chemotherapy 07/29/2021 [facility] RAD XRAY ??? XR FLUORO GUIDED LUMBAR PUNCTURE FOR IT CHEMOTHERAPY N/A 08/05/2021 XR Fluoro Guided Lumbar Puncture For IT Chemotherapy 08/05/2021 Nas Patino MD [facility] RAD XRAY ??? XR FLUORO GUIDED LUMBAR PUNCTURE FOR IT CHEMOTHERAPY N/A 08/01/2021 XR Fluoro Guided Lumbar Puncture For IT Chemotherapy 08/01/2021 Yolette Solano, [employer] [facility] RAD XRAY ??? XR FLUORO GUIDED LUMBAR PUNCTURE FOR IT CHEMOTHERAPY N/A 07/22/2021 XR Fluoro Guided Lumbar Puncture For IT Chemotherapy 07/22/2021 [facility] RAD XRAY ??? XR FLUORO GUIDED LUMBAR PUNCTURE FOR IT CHEMOTHERAPY N/A 08/12/2021 XR Fluoro Guided Lumbar Puncture For IT Chemotherapy 08/12/2021 Jona Lowry MD [facility] RAD XRAY ??? XR FLUORO GUIDED LUMBAR PUNCTURE FOR IT CHEMOTHERAPY N/A 08/26/2021 XR Fluoro Guided Lumbar Puncture For IT Chemotherapy 08/26/2021 Yolette Solano, [facility] RAD XRAY ??? XR FLUORO GUIDED LUMBAR PUNCTURE FOR IT CHEMOTHERAPY N/A 09/05/2021 XR Fluoro Guided Lumbar Puncture For IT Chemotherapy 09/05/2021 Yolette Solano, [facility] RAD XRAY ??? XR FLUORO GUIDED LUMBAR PUNCTURE FOR IT CHEMOTHERAPY N/A 09/09/2021 XR Fluoro Guided Lumbar Puncture For IT Chemotherapy 09/09/2021 Yolette Solano, [facility] RAD XRAY ??? XR FLUORO GUIDED LUMBAR PUNCTURE FOR IT CHEMOTHERAPY N/A 09/27/2021 XR Fluoro Guided Lumbar Puncture For IT Chemotherapy 09/27/2021 Yolette Solano, [employer] [facility] RAD XRAY Social History and Habits: Social History Tobacco Use ??? Smoking status: Never Smoker ??? Smokeless tobacco: Never Used Vaping Use ??? Vaping Use: Never used Substance Use Topics ??? Alcohol use: Not Currently Comment: 5 drinks/year ??? Drug use: Never Significant Family History: Family History Problem Relation Age of Onset ??? Lung Cancer Father Pertinent ROS: as per HPI Physical Exam: Pending (to be performed in IR the day of procedure) ASA: Pending (to be assessed in IR the day of procedure) Mallampati class: Pending (to be assessed in IR the day of procedure) 11/04/2021 Kelli Diaz PA-C Luis Manuel Goodrich Jr., MD - 10/15/2021 2:28 PM EST Inpatient Hematology Oncology History and Physical Team A - Pager [phone] Patient Name: Luis Manuel Mobley Jr. Patient Age: 61 y.o. Admit date: 10/15/2021 Attending Physician: Luis Manuel Goodrich Jr., MD Problem List: Active Hospital Problems Diagnosis ??? AML (acute myeloblastic leukemia) Resolved Hospital Problems No resolved problems to display. Active Non-Hospital Problems Diagnosis ??? Paroxysmal atrial fibrillation ??? GERD (gastroesophageal reflux disease) ??? BPH (benign prostatic hyperplasia) ??? Attention to ileostomy ??? Clostridium difficile colitis ??? Acute leukemia ID: Luis Manuel Mobley Jr. is a 61 y.o. 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 PCP: LEISA Munguia History of Present Illness (obtained from patient & eDH chart review): (Per note from visit with Dr. Modi this AM) ORIGINAL HISTORY OF PRESENT ILLNESS (05/06/21) Luis Manuel Mobley Jr. dates the onset of his illness to earlier this summer. He has felt more tired than usual but attributed it to the humidity. About 3 weeks ago his fatigue was so bad that he went to a clinic in [facility]. He was evaluated for a UTI that was negative. 1 week ago today he saw his PCPwho ended up gatting a CBC showing abnormal counts and he was admitted to [facility]. Other than fatigue has had no fevers, chills or drenching sweats. Has lost a few lbs - <10. Appetite has been down recently. No bleeding or bruising. Was very actived when younger - played a lot of sports into his 40's. ?? INTERIM HPI Luis Manuel is seen in f/u for relapsed FT3+ AML with positive SU[employer] disease and in anticipation of admissiontoday for [...] shows 99% reduction - now at 1.95%. Luis Manuel is seen today to for a final check prior to planned admissionfor his MUD HSCT. As above, he has completed his pre-transplant evaluation and there are no contriandications to proceeding as planned. ?? Since last seen Luis Manuel reports that hew feels entirely well and ready for his transplant. Day of admission HPI Luis Manuel reports some weakness from below his knees to feet, able to do stairs (has 12 steps within the house and able to do that several times per day) with mild PICHARDO which he believes is due to deconditioning and less exercise as of late. He is able to walk independently throughout the house otherwise but has been rather isolated due to COVID. Otherwise feels like he has been quite well and reports ROS per below. Review of Systems: GENERAL HEENT COR PULM All negative All negative All negative All negative Weight loss Headache Chest Pain Non-productive cough Weight gain Vision change Palpitations Productive cough Fevers Sinus congestion Orthopnea Wheezing Chills Hoarseness x Leg edema (some ankle swelling at baseline) Hemoptysis Night sweats Epistaxis Paroxysmal nocturnal dyspnea Pleuritic pain Fatigue Syncope SOB Claudication x PICHARDO - pt feels they are deconditioned recently MSK RENAL ENDO GI All negative All negative All negative All negative Arthralgias Frequency Heat intolerance Blood in stool Myalgias Urgency Cold intolerance Dysphagia Weakness Hematuria Polydipsia Odynophagia Stiffness Flank pain Polyphagia Abdominal discomfort Dysuria Cushingoid Constipation Foamy urine Diarrhea - Has ostomy since May 2021 Discharge Nausea/Vomiting LYMPH SKIN NEURO PSYCH All negative All negative All negative All negative Swollen nodes Rash Seizures Depressed affect Tender nodes Ulcers Tremors Occupational stress Diffuse nodes Bruising Spasticity Anxiety Local nodes Tanned skin Focal weakness Insomnia Night sweats Telangiectasias Diplopia x Paresthesias - Neuropathy at baseline Dizziness Past Medical and Surgical History: Past Medical History: Diagnosis Date ??? AML (acute myeloblastic leukemia) 04/2021 ??? BPH (benign prostatic hyperplasia) ??? GERD (gastroesophageal reflux disease) ??? Paroxysmal atrial fibrillation ??? 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 ACHILLES TENDON SURGERY ??? IR MEDIPORT PLACEMENT 10/04/2021 IR Mediport Placement 10/04/2021 Kelli Diaz PA [facility] RAD ? ? PRO DIAGNOSTIC BONE MARROW BIOPSIES & ASPIRATIONS Right 09/12/2021 ([facility]) BONE MARROW BIOPSY AND ASPIRATION; DIAGNOSTIC performed by Parviz Modi MD [facility] ? ? PRO DIAGNOSTIC BONE MARROW BIOPSIES & ASPIRATIONS N/A 10/07/2021 ([facility]) BONE MARROW BIOPSY AND ASPIRATION; DIAGNOSTIC performed by Parviz Modi MD [facility] ??? PRO EXPLORATORY OF ABDOMEN Midline 05/26/2021 @EXPLORATORY LAPAROTOMY, WITH/WITHOUT BIOPSY(S) (WRVU 12.54) performed by Mark Hernandes MD [facility] MAIN OR ??? PRO ILEOSTOMY/JEJUNOSTOMY, NONTUBE N/A 05/28/2021 @ILEOSTOMY OR JEJUNOSTOMY, NON TUBE (WRVU 17.59) performed by Lety Walter MD at [facility] MAIN OR ??? PRO REOPEN RECENT ABD EXPLORATORY N/A 05/28/2021 @EXPLORATORY LAPAROTOMY, REOPENING OF RECENT (WRVU 17.63) performed by Lety Walter MD at [facility] MAIN OR ??? TONSILLECTOMY AND ADENOIDECTOMY ??? XR FLUORO GUIDED LUMBAR PUNCTURE N/A 07/12/2021 XR Fluoro Guided Lumbar Puncture 07/12/2021 Frances Green MD [facility] RAD XRAY ??? XR FLUORO GUIDED LUMBAR PUNCTURE FOR IT CHEMOTHERAPY N/A 07/16/2021 XR Fluoro Guided Lumbar Puncture For IT Chemotherapy 07/16/2021 Nas Patino MD [facility] RAD XRAY ??? XR FLUORO GUIDED LUMBAR PUNCTURE FOR IT CHEMOTHERAPY N/A 07/19/2021 XR Fluoro Guided Lumbar Puncture For IT Chemotherapy 07/19/2021 Shae Alford MD [facility] RAD XRAY ??? XR FLUORO GUIDED LUMBAR PUNCTURE FOR IT CHEMOTHERAPY N/A 07/25/2021 XR Fluoro Guided Lumbar Puncture For IT Chemotherapy 07/25/2021 Nas Patino MD [facility] RAD XRAY ??? XR FLUORO GUIDED LUMBAR PUNCTURE FOR IT CHEMOTHERAPY N/A 07/29/2021 XR Fluoro Guided Lumbar Puncture For IT Chemotherapy 07/29/2021 [facility] RAD XRAY ??? XR FLUORO GUIDED LUMBAR PUNCTURE FOR IT CHEMOTHERAPY N/A 08/05/2021 XR Fluoro Guided Lumbar Puncture For IT Chemotherapy 08/05/2021 Nas Patino MD [facility] RAD XRAY ??? XR FLUORO GUIDED LUMBAR PUNCTURE FOR IT CHEMOTHERAPY N/A 08/01/2021 XR Fluoro Guided Lumbar Puncture For IT Chemotherapy 08/01/2021 Yolette Solano, [facility] [facility] RAD XRAY ??? XR FLUORO GUIDED LUMBAR PUNCTURE FOR IT CHEMOTHERAPY N/A 07/22/2021 XR Fluoro Guided Lumbar Puncture For IT Chemotherapy 07/22/2021 [facility] RAD XRAY ??? XR FLUORO GUIDED LUMBAR PUNCTURE FOR IT CHEMOTHERAPY N/A 08/12/2021 XR Fluoro Guided Lumbar Puncture For IT Chemotherapy 08/12/2021 Jona Lowry MD [facility] RAD XRAY ??? XR FLUORO GUIDED LUMBAR PUNCTURE FOR IT CHEMOTHERAPY N/A 08/26/2021 XR Fluoro Guided Lumbar Puncture For IT Chemotherapy 08/26/2021 Yolette Solano, [employer] [facility] RAD XRAY ??? XR FLUORO GUIDED LUMBAR PUNCTURE FOR IT CHEMOTHERAPY N/A 09/05/2021 XR Fluoro Guided Lumbar Puncture For IT Chemotherapy 09/05/2021 Yolette Solano, [employer] [facility] RAD XRAY ??? XR FLUORO GUIDED LUMBAR PUNCTURE FOR IT CHEMOTHERAPY N/A 09/09/2021 XR Fluoro Guided Lumbar Puncture For IT Chemotherapy 09/09/2021 Yolette Solano, [facility] RAD XRAY ??? XR FLUORO GUIDED LUMBAR PUNCTURE FOR IT CHEMOTHERAPY N/A 09/27/2021 XR Fluoro Guided Lumbar Puncture For IT Chemotherapy 09/27/2021 Yolette Solano, [facility] RAD XRAY Prior To Admission Medications: Medications Prior to Admission Medication Sig Dispense Refill Last Dose ??? enoxaparin (Lovenox) 100 mg/mL Syringe Inject 100 mg subcutaneously daily. Past Week at Unknown time ??? phenytoin (Dilantin) 50 mg Tablet, Chewable Take 8 tablets(400 mg) at 9:00 AM and 6 tablets (300mg) at 3:00 PM on October 15, 2021 14 tablet 0 10/15/2021 at Unknown time ??? acyclovir (Zovirax) 400 mg Tablet Take 1 tablet by mouth 2 times daily. 60 tablet 5 10/15/2021 at Unknown time ??? levoFLOXacin (Levaquin) 750 mg Tablet Take 1 tablet by mouth daily. 30 tablet 5 10/15/2021 at Unknown time ??? vancomycin (Vancocin) 125 mg Capsule Take 1 capsule by mouth 2 times daily. 60 capsule 5 10/15/2021 at Unknown time ??? metoprolol succinate XL (Toprol-XL) 50 mg Tablet Sustained Release 24 hr Take 1 tablet by mouth daily. 30 tablet 5 10/15/2021 at Unknown time ??? Ostomy Supplies Misc Dispense 2 boxes ( 10/box) of [employer] Barrier rings #7805 per month. 20 each 11 10/15/2021 at Unknown time ??? Colostomy Belt (Ostomy Belt Medium) Misc Dispense 1 Sensura [place] Belt #4237 per month. 1 each 10/15/2021 at Unknown time ??? Ostomy Supplies Powder Dispense 1 bottle of Adapt stoma powder #7906 every other month. 28.3 g at Unknown time ??? Ostomy Supplies Misc Dispense 2 boxes (10/box) of Sensura [place] Soft Convex One-piece Pouch #32398qbc month. 20 each 11 10/15/2021 at Unknown time ??? Ostomy Supplies [facility] [place] Dispense 2 boxes (20/box) of Brava Elastic Barrier strips #[id number] per month. 40 each 11 10/15/2021 at Unknown time ??? Ostomy Supplies [facility] [place] Dispense 1 box (50/box) of a generic no-sting skin barrier wipe per month. 50 each 11 10/15/2021 at Unknown time ??? loperamide (Imodium A-D) 2 mg Capsule Take 1 capsule by mouth 3 times daily. 90 tablet 0 10/15/2021 at Unknown time ??? tamsulosin (Flomax) 0.4 mg Capsule Take 1 capsule by mouth daily. 90 tablet 0 10/15/2021 at Unknown time ??? flecainide (TAMBOCOR) 50 mg Tablet Take 1 tablet by mouth 2 times daily. 60 tablet 3 10/15/2021 atUnknown time ??? famotidine (Pepcid) 20 mg Tablet Take 2 tablets by mouth daily. 30 tablet 12 10/15/2021 at Unknowntime ??? lidocaine-prilocaine (EMLA) Cream Apply to [facility] approximately 30 minutes prior to access. 30g 0 Unknown at Unknown time ??? venetoclax (Venclexta) 100 mg tablet Take 1 tablet (100 mg) by mouth daily for 30 days. Take with food and a large glass of water. Call clinic before starting medication. Indications: acute myeloidleukemia, a type of blood cancer 30 tablet 5 ??? sulfamethoxazole-trimethoprim DS (Bactrim DS) 800-160 mg Tablet Take 1 tablet by mouth three times a week. 12 tablet 5 Unknown at Unknown time ??? gilteritinib (Xospata) 40 mg tablet Take 3 tablets (120 mg) by mouth daily. Call clinic before starting medication. Indications: acute myeloid leukemia with FLT3 mutation (Patient not taking: No sig reported) 90 tablet 0 Allergies Allergen Reactions ??? Other [Unclassified Drug] Other (See Comments) Artificial Sweetners-lightheadedness, dizziness ??? Bactoshield Chg [Chlorhexidine Gluconate] Itching and Rash CHG wipes reported he gets a rash and is itchy. Family History Problem Relation Age of Onset ??? Lung Cancer Father Social History and Habits: Lives in a house in [place] with his and her mother. Regular diet EtOH very rarely 2-3x per year Tobacco never smoker No other drugs. Physical Exam: Last Set of Vitals and range of vitals over past 24 hours: Last value Range last 24 hrs Temperature Temp: 36.5 ??C (97.7 ??F) Temp: [36.5 ??C (97.7 ??F)-36.6 ??C (97.9 ??F)] Heart Rate Heart Rate: (!) 116 Heart Rate: [73-116] Blood Pressure BP: 118/78 BP: (96-120)/(48-80) Respiratory Rate Resp: 20 Resp: [16-26] SpO2 SpO2: 100 % SpO2: [96 %-100 %] Exam: GENERAL: Well appearing NAD lying in hospital bed, able to sit at EOB without issues. CARDIOVASCULAR: rrr no mrg PULMONARY: CTAB GASTROINTESTINAL: Abdomen soft nontender to palpation w +BS. Colostomy with soft stool in place. SKIN: No rashes, bruises or petechiae. EXT: trace pitting edema of bilateral ankles. NEUROLOGICAL: Alert and oriented to person, place and time. Laboratory (Last 24 Hours): Access: Patient Lines/Drains/Airways Status Active Tubes/Lines/Drains Name Placement date Placement time Site Days Tunneled Central Line - Triple Lumen 10/15/21 1240 internal jugular vein, left 12 Fr 10/15/21 1240 -- less than 1 Implanted Port - Single Lumen (non-apheresis) 10/04/21 0000 10/04/21 0000 -- 11 Peripheral IV Line - Single Lumen 10/07/21 1533 basilic vein (medial side of arm), left 22 gauge 10/07/21 1533 -- 8 Ileostomy 05/28/21 1404 ileostomy 05/28/21 1404 -- 140 Laboratory: CBC: Recent Labs 10/15/21 0815 10/07/21 1529 10/04/21 0907 WBC 4.2 4.6 3.7* HGB 9.3* 9.0* 9.4* PLATELET 127* 119* 139* Chemistry: Recent Labs 10/15/21 0815 10/04/21 0907 09/27/21 1036 NA 139 140 139 K 4.5 4.8 4.2 CL 108* 110* 108* CO2 18* 18* 18* BUN 28* 24* 21* CREATININE 1.09 1.31 1.18 GLUCOSE 89 85 92 Recent Labs 10/15/21 0815 10/04/21 0907 09/27/21 1036 08/12/21 0923 08/08/21 0310 08/07/21 0403 CALCIUM 9.6 9.5 9.0 < > 8.8 8.8 MAGNESIUM -- -- 0.67* -- 0.85 0.64* PHOS -- -- 4.1 -- 4.3 4.3 < > = values in this interval not displayed. LFT's: Recent Labs 10/15/21 0810/04/21 0909/27/21103508/12/21 0923 08/08/21 0310 08/07/21 0403 08/06/21 0415 BILITOT 0.2 <0.2* <0.2* < > 0.3 0.2 0.3 BILIDIR -- -- -- -- 0.1 0.1 0.1 ALBUMIN 4.2 4.2 4.1 < > 3.4 3.4 3.4 ALKPHOS 104 114 112 < > 167* 150* 135* ALT 37 56* 54 < > 37 38 31 AST 30 53* 51* < > 31 33 29 < > = values in this interval not displayed. Coags: No results for input(s): PT, INR, PTT, FIBRINOGEN, DDIMER in the last 168 hours. Invalid input(s): THROMBIN TIME Cardiac Enzymes: Recent Labs 08/02/21 0350 07/26/21 0225 07/19/21 0320 07/12/21 0627 07/11/21 2025 07/11/21 1430 07/11/21 0807 TROPONINT -- -- -- -- 0.05* 0.06* 0.06* CK 117 43 32 < > -- -- -- < > = values in this interval not displayed. Endocrine: Recent Labs 09/27/21 1036 07/12/21 0627 TSH 3.30 6.91* Heme: No results for input(s): LDH, HAPTOGLOBIN, URICACID in the last 168 hours. Microbiology Results (Last 30 days) No results found for the last 720 hours. Imaging and Diagnostics: No results found for this visit on 10/15/21. Assessment: Luis Manuel Mobley Jr. is a 61 y.o. 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 He is now at day approximately +76 (10/15/21) of venetoclax plus gilteritinib therapy (day 1 ~07/31/2021) which have been held since 10/08. ? Luis Manuel Mobley Jr. is feeling well today. We will plan to continue his home medications to manage his afib (metop, flecainide) and hx of c diff (PO vanc). His tunneled line was placed this AM without apparent untoward effects. Will proceed with beacon plan as ordered. Today is day -7. ?? Plan: Day (-7): Fludarabine: Day (-6): Fludarabine, Busulfan, Rabbit ATG: Day (-5): Fludarabine, Busulfan, Rabbit ATG: Day (-4): Fludarabine, Busulfan, Rabbit ATG: Day (-3): Fludarabine, Busulfan: Day (0): Stem Cell Infusion: Day (+1): metHOTREXate: Day (+3): metHOTREXate: Day (+6): metHOTREXate: Day (+11): metHOTREXate: General - q4h vitals - strict Is/Os 2x daily - weigh patient 2x daily, notify provider if weight increases by 1kg or more in 12 hour period ?- lasix 20mg IV prn weight gain >1 kg above admission baseline ?- lasix 20mg IV for weight gain 1 kg over 12 hours or input exceeding output by greater than 1,000 ml/12h - neutropenic precautions - incentive spirometry q2h while awake - activity as tolerated - electrolyte replacement ?? Chemotherapy/Support - Busulfan 204mg day (-6) to day (-3) -??Fludarabine 61 mg 102ml infusion once over 30 minutes day -7 Then every 24 hours at 0900 for 4 doses day (-6) to day (-3) - Rabbit ATG 124.8mg over 10 hours day (-6), 166.4mg on day (-5) 208 on day (-4).?? - Day 0 stem cell infusion. Premedicate with acetaminophen 650mg, diphenhydramine 50mg) - Methotrexate??10mg??day (+1), day (+3), day (+6), day (+11). Hold for serum creatinine >2, bilirubin >5, fluid accumulation (large effusion or ascites), severe mucositis if potential need for intubation. - filgrastim??600mcg qd starting day (+7) until ANC >1500 ?? Laboratory Monitoring - weekly CMV PCR starting day +10, then weekly thereafter - IgG every 2 weeks starting day +1 to day +100 - U/A s/ reflex culture on admission, then daily on days -2, -1, 0? Transfusion parameters - Hgb <??6.5 - PLT <10, or if febrile??or bleeding??<20 - keep active T&S once hgb <8 ?? Prophylaxis Seizure ppx ?-phenytoin 300 day (-6) through (-1) - GI ppx ?- pantoprazole 40mg qd - mucositis ppx ?- supersaturated calcium phosphate oral solution 30ml 4x daily starting on admission until resolution of mucositis and ANC ?>500 - infection ppx ?- fluconazole 400mg qd starting day (0) ?- levofloxacin 750mg qd starting day (0) until ANC >500 ?- acyclovir 800mg bid starting day (-7) ?- bactrim DS 1 tablet daily from day (-7) through day (-2) ?- bactrim DS 1 tablet MWF starting day (+30) - GVHD ppx?-??Tacrolimus 1.5mg BID??starting day (- 2)?target 5-10 trough - VOD ppx ?- lovenox 40mg qd day (-7) through (30) per Dr. Modi's note, he should continue lovenox 100mg qd until plt apx <40 then switch to VOD ppx dose. ?- ursodiol 300mg qAM??&??qPM day (-7) through day (+30) Hydration - NaCl 0.9% continuous 250ml/hr x2h day (-6)??at 0800 for 2 hours prior to start of busulfan - NaCl 0.9% continuous??150ml/hr x??day (-6) ??Through (-3) ?? Pain/Nausea/Appetite - avoid acetaminophen through??day??(-3) - avoid steroid antiemetics - palonosetron 0.25mg day (-6) - aprepitant 130mg day (-6) prior to??busulfan - lorazepam 0.5mg IV q4h prn nausea, anxiety - ondansetron 8mg q8h prn nausea, vomiting beginning day (-3) - prochlorperazine 10mg IV q6h prn nausea, vomiting - use ondansetron >??prochlorperazine or promethazine >??lorazepam >??metoclopramide - olanzapine 5mg qhs starting day (-3) for 5 doses?? #Paroxysmal Afib - EKG on admission; if QTc prolonged, should be on telemetry. - Continue home metoprolol (convert to tartrate), flecainide #Hx of provoked PE in Apr 2021 - On lovenox 100mg qd (held prior to central line placement) - Continue until plt reach apx 40 f/b switch to prophylactic dosing. #Hx of C diff colitis - Continue home PO vancomycin - Ostomy care #Routine DVT PPx: home lovenox 100mg qd until plt <40 then switch to VOD ppx dosing. Diet: Neutropenic (BMT) diet Dispo: 1-West Code Status: Attempt Cardiopulmonary Resuscitation - Inpatient Kelli Tran MD PGY-2 Heme/Onc Team A, Pager #[phone] 10/15/2021 Inpatient BMT/Hematology Staff Addendum I have independently interviewed and examined this patient and have personally reviewed the relevantclinical, laboratory and radiological data with the housestaff. ??Please refer to the comprehensive admit note from today, with which I concur, for complete details of our encounter with this patient. ??I have reviewed and endorse the plan as outlined and have made any additions/corrections below. ?? This patient meets criteria for inpatient level of care based on the above medical complexity. ?? 61 year old man with h/o high-risk (FLT3+) AML??adm???d on 10/15 for [id number] via Flu/Bu/ATG regimen. Course marked by dev't of C difficile colitis with toxic megacolon requiring suzie-colectomy, withostomy, then dev't of 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 Recent restaging is c/w remission, and Luis Manuel is feeling overall very well with no ostomy related issues and is ready to proceed with his transplant. Tolerated the start of conditioning without issue, and he feels overall well today. Wt is 0.5 kg below adm'n baseline, and we continue to follow his status closely. ?? Note: Dr. Modi billed for the 10/15 adm'n via outpatient clinic encounter from that date. All transplant-related questions and concerns from Luis Manuel addressed, and she wishes to proceed. ? Central Venous Access Statement of Need ?? Can the central IV access be removed? [ ] Yes? [x] No? [ ] N/A ? If no, reason for central access: [ ]? TPN?]? Chemotherapy [ ]? IV Antibiotics [ ]? Vasoactive medication [ ]? Vesicant medication [ ]? Active resuscitation with fluid or blood products ?? [ ]? Poor vascular access as determined by vascular access [x??]? Stem cell transplant patient or AML induction [ ]? Other: ? TACHO Goodrich MD Heme/Onc Section documented in this encounter Procedure Notes Kat Pak RN - 11/04/2021 4:22 PM EDTAssociated Order(s): PLACE PICC LINE: CONTACT VASCULAR ACCESS PICC/Midline Insertion Procedure Note Indications: Medication Administration This insertion was not to replace a malfunctioning catheter. This insertion was not due to a suspected line-associated infection. Location of Procedure: X-Ray Room 11 Risks and Benefits: The risks and benefits of this procedure were reviewed and informed consent was obtained obtained. Time Out: Prior to the start of the procedure, the patient's identity, intended procedure, site/side, correct patient positioning and presence of the site heber was confirmed as applicable. The medical history and chart were reviewed to rule out potential contraindications to the planned procedure. Hand Hygiene: The multi site leasing consultant did perform hand hygiene prior to line insertion. Catheter type: PICC Lot number: [id number] Procedure Technique: Skin was prepped with povidone-iodine and alcohol. Skin preparation agent was completely dry at the time of first skin puncture. The following barrier precaution methods were used:large sterile drape, maske/eye shield, large sterile gown, sterile gloves and cap. 3 ml of 1% Lidocaine was used for skin wheal. Ultrasound was used for guidance. Radiographic contrast agent was not injected for vein identification. Procedure Details: Order received for catheter placement. A 5 Fr. double lumen Bard Power catheter was placed into the right brachial vein over a 0.018 inch guidewire using modified seldinger technique and fluoroscopy. Arm circumference was 35 cm at 2 cm above the insertion site. Final catheter length (with trimming): 39 cm Internal: 39 cm External: 0 cm Tip in SVC per Kiran The line was not placed over a guidewire. Post Procedure: Diagnosis: AML Blood return noted on aspiration of line after placement confirmed. 5 mls of normal saline infused free flowing to gravity via PICC after insertion. Sterile dressing applied: Sorbaview. Findings: The patient did tolerate the procedure well. No Complications. Procedure Comments: NO BIOPATCH OR CHG GEL D/T ALLERGY KAT PAK RN 11/04/2021 documented in this encounter Miscellaneous Notes Care Management Discharge - Aruna Saunders RN - 11/18/2021 1:01 PM EDT CARE MANAGEMENT FINAL DISCHARGE NOTE Chart reviewed, care reviewed with primary team and at interdisciplinary rounds. Patient is medically ready for discharge to home. Needs for Transition of Care: Plan for discharge is: Home w/o Services Outpatient Agency/Support Group Needs: Outpatient Physical Therapy Agency Referrals & Follow-up Care: Contact information for follow-up Physical Therapy, Mo Ferrer [facility] [address] [facility] [id number] Transportation: family or friend will provide Wheelchair van/Ambulance? No Functional status prior to admission: Independent Home Environment: Others in the home: significant other, pet(s) (So Chrissy and 2 cats). Current Living Arrangements: home/apartment/condo. Accessibility Concerns:3 MAXIMUS, mainly one floor. Current Functional Ability: Assistive Person and Equipment DME used at home: unable to assess DME Needed at Discharge: N/A Patient is insured through: Primary Insurance: [employer] Payor: [employer] / Plan: [facility] PPO / Product Type: *No Product type* / Secondary Insurance: interclick Prescription Coverage: Preferred Pharmacy: [id number] - [place], [place] - [address] [place] [address] AT SEC OF [facility] [address] [address] [facility] - [facility] [address] [facility] - [address] [facility] [address] [facility] [address] [id number] - [place], [place] - [address] [facility] [address] [id number] - [place], [place] - [address] [facility] [address] [facility] [address] [facility] [address] [facility] [phone] [id number] - Psychiatric [address] [facility] [address] [facility] [address] [place] [id number] This plan was formulated with input from patient and team. All are in agreement with plan. Aruna Saunders RN, BSN, IRVING Calciner Operator Helper Pager [phone] Consult Note - Radha Owens RN - 11/18/2021 12:22 PM EDT Picc Catheter Removal: PICC Removal Catheter Removal: Date: [ X ] Catheter removed intact with cm removed from arm, per MD order. Reason for removal: [X ] End of Therapy [ ] Phlebitis [ ] Cellulitis [ ] Catheter-related infection: [ ] Suspected [ ] Documented [ ] Thrombus: [ ] Suspected [ ] Documented [ ] Infiltration [ ] Other Description of insertion/exit site: [X ] no signs of infection, no bleeding at site [ ] other (see narrative below) Patient Education: [ X ] Patient instructed to observe site for redness, swelling, discomfort and /or exudates and ab Healthcare Provider if any of these signs/symptoms present. Comments: Patient Guidelines for Self-Care after PICC (Peripherally Inserted Central Catheter) Removal Your PICC was removed on 11/18/2021 at 1228 A Petroleum ointment was applied to the insertion site (where the PICC went into your skin). The nurse applied gauze and a transparent (see-through) dressing over the insertion site. To help your PICC insertion site heal: *Avoid heavy lifting (for example, no more than a gallon of milk) or vigorous activities for 24 hours * Keep the dressing over the insertion site dry for 24 hours * You can remove the dressing after 24 hours. Call your doctor after your PICC has been removed if you experience any of the following: * Fever (temperature over 100.1F) * Chills * Drainage from the insertion site ( including bleeding). *Redness, warmth, pain, swelling, or a pink/red streak going up your arm *A knot at the insertion site or anywhere in the arm *If bleeding should occur, hold firm pressure for 3-5 minutes. Do not remove the dressing that the nurse put on when the PICC was removed. If needed, apply another dressing over the first dressing. Ifbleeding does not stop, call or seek medical attention. Consult Note - Reyna Teague RN - 11/18/2021 10:00 AM EDT Inpatient Ostomy Progress Note ?? Surgery/Date:??05/28/21??Procedure(s) (LRB): @ILEOSTOMY OR JEJUNOSTOMY, NON TUBE (WRVU 17.59) (N/A) @EXPLORATORY LAPAROTOMY, REOPENING OF RECENT (WRVU 17.63) (N/A)? Diagnosis:??C diff colitis? Surgeon:??Dr. Lety Walter ?? Pouching System: Removed #[id number] with adapt ring and elastic barrier strips, replaced with the same. Pt opted to continue with the high output (HO) pouch due to continued liquid stool. Stoma:Red, moist, oval, slough over ulcerated area, suspect from mucositis he had in his mouth as well. Overall, stoma is 75% red & viable and functioning well. Peristomal Skin: Healthy & intact. Ostomy Output: Thin liquid stool although not currently HO. ?? Notes: Pt in good spirits today due to anticipated discharge home. Pt's Rajwinder Paula was present during my visit. Pt has spare drainable pouches at home as well as spare rings and barrier strips. Also provided him with 1 spare high output pouch. Pt stated that his insurance may be changing soon; I told him to let us know if he has any issues obtaining ostomy supplies. Pt has a f/u with Dr. Modi in 3Kthursday, however, I do not feel that the Ostomy team needs to f/u with him at that time. Will charleso coordinate a f/u with him on another day that he is at [facility]. Discussed this plan with pt & Chai and they are agreeable. Enc them to call if any questions, concerns, or issues arise after discharge. See photo from 11/14; no change. Reyna Teague, JOHNNIE, RN, CWOCN 11/18/2021 Enterostomal Therapy Team Pager #[phone] Consult Note - Serenity Frey RN - 11/14/2021 12:31 PM EDT Images from the original note were not included. Ostomy Progress Note Surgery/Date:??05/28/21??Procedure(s) (LRB): @ILEOSTOMY OR JEJUNOSTOMY, NON TUBE (WRVU 17.59) (N/A) @EXPLORATORY LAPAROTOMY, REOPENING OF RECENT (WRVU 17.63) (N/A)? Diagnosis:??C diff colitis? Surgeon:??Dr. Lety Walter Pouching System: Removed #[id number] with adapt ring and elastic barrier strips, replaced with the same Stoma Appearance: Red, budded, oval, yellow slough over ulcerated area, suspect from mucositis he had in his mouth as well. Overall stoma is 75% red and viable and functioning well. Peristomal Skin: healthy, intact Ostomy Output: still slightly high in volume but thickening up now that patient is able to eat more as the sores in his mouth heal Notes: Left 2 spare #[id number], has 2 elastic barrier strips, no rings. Stoma: Care Management - Aruna Saunders RN - 11/14/2021 9:37 AM EDT OFFICE OF CARE MANAGEMENT PROGRESS NOTE LOS: Hospital Day 30 days Chart reviewed, care reviewed with primary team and at interdisciplinary rounds. Patient continues to meet inpatient level of care related to: SCT, now with recent ischemic stroke. Functional status prior to admission: Independent Home Environment: Others in the home: significant other, pet(s) (So Chrissy and 2 cats). Current Living Arrangements: home/apartment/condo. Accessibility Concerns: 3 MAXIMUS, mainly one floor. Current Functional Ability: Assistive Person and Equipment DME used at home: unable to assess DME Needed at Discharge: TBD Patient is insured through: Primary Insurance: [employer] Payor: [employer] / Plan: [facility] PPO / Product Type: *No Product type* / Secondary Insurance: [employer] Prescription Coverage: Yes Preferred Pharmacy: [facility][id number] - [place], [place] - [address] [facility]. AT [address] OF [facility] [address] [facility] [address] [facility] [phone] [facility] - [place], [place] - [address] [facility] [address] [facility] [id number] [facility] - [place] - [address] [facility] [address] [facility] [address] [facility] [address] [id number] - [place] - [address] [place] [address] [address] [facility] [address] [facility][id number] - [place], [place] - [address] [facility] [address] [facility] [address] [phone] [id number] - [place], [place] - [address] [facility] [address] [facility] [address] [place], [place] [id number] Last Physical Therapy Recommendation: home with home health with to be determined Plan for discharge is: Home w/o Services Outpatient Agency/Support Group Needs: Outpatient Physical Therapy Agency Referrals & Follow-up Care:N/A Transportation: family or friend will provide Barriers to discharge: Discharge planning Plan going forward: Care Management will continue to follow and assist with discharge planning and coordination of care as indicated. Anticipated Date of Discharge: 11/19/2021 Aruna Saunders RN, BSN, IRVING Calciner Operator Helper Pager [phone] Consult Note - Gabriela Norman RN - 11/11/2021 11:00 AM EDT Images from the original note were not included. Inpatient Ostomy Progress Note ?? Surgery/Date:??05/28/21??Procedure(s) (LRB): @ILEOSTOMY OR JEJUNOSTOMY, NON TUBE (WRVU 17.59) (N/A) @EXPLORATORY LAPAROTOMY, REOPENING OF RECENT (WRVU 17.63) (N/A)? Diagnosis:??C diff colitis? Surgeon:??Dr. Lety Walter ?? Appliance: Removed #[id number] with adapt ring and elastic barrier strips, replaced with the same and hooked it back up to Cha drainage bag. Pouch was lifting on medial edge. ?? Changed: [x} Yes ?? Stoma: red and moist, stoma covered in semi-adherent slough and mucus, that was able to be removed with wet gauze. There are still two small black areas at ~ 11 and 12:00 positions on the stoma. ?? Peristomal Skin: Dry and intact with possible mucocutaneous separation at 3:00 position. ?? Teaching: Pt's life partner, Chai, was present and said the medial edge of the pouch is always an issue at home. I told her that we could try using a heat pack to see if we could get it to stick better. ?? Family Present: [x} Yes ?? Psychosocial Acceptance: He is well adjusted to life with an ileostomy. Special Notes: Pt said that he had a horrible day yesterday and grabbed my hand and squeezed it at the end of the pouch change. I encouraged him to hang in there and told him it was great that he was finally able to get his bone marrow transplant. Ostomy team will continue to follow. ?? Stomal Image: Care Management - Aruna Saunders RN - 11/11/2021 9:26 AM EDT OFFICE OF CARE MANAGEMENT PROGRESS NOTE LOS: Hospital Day 27 days Chart reviewed, care reviewed with primary team and at interdisciplinary rounds. Patient continues to meet inpatient level of care related to: SCT, now with recent ischemic stroke. Functional status prior to admission: Independent Home Environment: Others in the home: significant other, pet(s) (So Chrissy and 2 cats). Current Living Arrangements: home/apartment/condo. Accessibility Concerns: 3 MAXIMUS, mainly one floor. Current Functional Ability: Assistive Person and Equipment DME used at home: unable to assess DME Needed at Discharge: TBD Patient is insured through: Primary Insurance: [facility] Payor: [facility] / Plan: [facility] PPO / Product Type: *No Product type* / Secondary Insurance: [employer] Prescription Coverage: Yes Preferred Pharmacy: [id number] - [place], [place] - [address] [place] [address] AT SEC OF [facility] [address] [phone] [facility] - [place] - [facility] [id number] [facility] - [address] [facility] [address] [facility] [id number] [id number] - [place], [place] - [address] [facility] [address] [id number] - [place], [place] - [address] [facility] AT [address] [facility] [address] [phone] [facility] [id number] - Psychiatric [id number] [facility] [address] [facility] [address] [place] [phone] Last Physical Therapy Recommendation: home with home health with to be determined Plan for discharge is: Pending Hospital Course and PT/OT Recommendations Outpatient Agency/Support Group Needs: None Agency Referrals & Follow-up Care:TBD on PT/OT recs. Transportation: family or friend will provide Barriers to discharge: Discharge planning Plan going forward: Care Management will continue to follow and assist with discharge planning and coordination of care as indicated. Anticipated Date of Discharge: 11/16/2021 Aruna Saunders RN, BSN, IRVING Calciner Operator Helper Pager [phone] Consult Note - Jenni Grier RN - 11/10/2021 11:00 AM EDT STROKE ALERT Name: Luis Manuel Mobley JrNabil Age: 61 y.o. Sex; Male Date of : 1960 Responding Members: Jenni Grier RN, Neurology resident, [facility] Date/Time of Admission: 10/15/2021 2:15 PM Unit/Room: [address] [place], [place] [address] Service: HEM/ONC Attending: [email or web address] [email or web address] Cutter present? Yes Attending Contacted? Unknown Time Activated: 1003 Time Arrived: 1006 Time at bedside: 45min Indication for Consult: Stroke alert called for word finding difficulty and new onset facial droop ASSESSMENT Brief 24 hr history: 51M admitted 10/15 for stem cell transplant, since then patients course complicated with STACIE, neutropenic fevers, mucositis, blood in stool, and VRE bacteremia. Nursing reports last known well at 0900 and at 1000 it was noted he had a left sided facial droop and was having difficulty with word finding-pt is able to follow commands and speak some words-pupils are equal and reactive,neurology has given patient NIH score of [address] with and without contrast kimberly and recommends MRI later in day. Pt transported on monitor to CT accompanied by MD without incident, vitals remained stable during transport and he was brought back to room. Code Status: Full Code RR:20 HR: 113 BP:145/95 (112) Temperature : 37.7C SpO2:97 FiO2/Flow:21% Device: None LOC:drowsy but responds as able Skin: warm, dry and pale Laboratory: Lab Results Component Value Date WBC 0.4 (CRIT) 11/10/2021 Hemoglobin 7.0 (L) 11/10/2021 Hematocrit 20.0 (L) 11/10/2021 Platelets 28 (L) 11/10/2021 Potassium 3.9 11/10/2021 Calcium 8.4 (L) 11/10/2021 CO2 28 11/10/2021 BUN 23 (H) 11/10/2021 Creatinine 0.96 11/10/2021 PLAN / INTERVENTION Labs ordered: blood sugar 134 Tests ordered: CT head Interventions: monitoring, , Disposition: Remain on Floor 5:05 PM, November 10, 2021 Jenni Grier, SHARON, Consult Note - Benita Whitfield, DO - 11/10/2021 10:35 AM EDT Images from the original note were not included. [facility] Neurology Consult Patient Name: Luis Manuel MobleyJr Date of : 1960 PCP: LEISA Mung[facility]ia Neurology Attending: Dr. Abdifatah Acosta MD Stroke Assessment: Date last well known:: 11/10/21 Time last well known:: 09 Date of discovery of symptoms:: 11/10/21 Time of discovery of symptoms:: 1004 The time difference from patients last known well to ED arrival OR inpatient stroke alert was (choose one): Greater than 4.5 hours Date acute stroke team was at bedside:: 11/10/21 Time acute stroke team was at bedside:: 1008 CT interpretation date: 11/10/21 CT interpretation time:: 103 Was dysphagia screen performed?: Yes Did patient pass dysphagia screen?: No Date of Dysphagia Screen: 11/10/21 Time of Dysphagia Screen: 1100 FAST-ED Score = 2 ??? Facial Palsy: 0 ??? Arm Weakness: 0 ??? Speech Change: 1 ??? Eye Deviation: 0 ??? Denial/Neglect: 1 CC: Stroke Alert for Word finding difficulties, ?Left Facial Droop HPI: Luis Manuel Mobley . is a 61 y.o. 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 Briefly per chart review, pre-transplant course marked by development of C difficile colitis with toxic megacolon, s/p [id number]-[id number] with ostomy and development of 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 Post-transplant course notable for development of STACIE, neutropenic fevers, bloody mucositis and heme positive stool, and VRE bacteremia currently on multi-antibiotic therapy for bacteremia plus prophylaxis regiment given pancytopenia in setting of disease and chemtherapy and history of C. Diff. Please see primary team progress note for full description of oncologic history and treatment. Luis Manuel was at his neurologic baseline until this morning (A&O x 4 per staff) with a Last Known Well of 09:00 AM on 11/10/2021 per nursing report was at his baseline. Luis Manuel was reassed around 10:00 AM and found to have difficulty speaking by nursing and left facial droop by primary team. No other focal neurologic deficits reported. Stroke alert activated due to acute change from baseline. REVIEW OF SYSTEMS: Unable to obtain Past Medical History: Diagnosis Date ??? AML (acute myeloblastic leukemia) 04/2021 ??? BPH (benign prostatic hyperplasia) ??? GERD (gastroesophageal reflux disease) ??? Paroxysmal atrial fibrillation ??? 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 ACHILLES TENDON SURGERY ??? IR LINE OR TUBE REMOVAL IN RECOVERY ROOM 11/05/2021 IR Line or Tube Removal in Recovery Room 11/05/2021 eKlli Diaz PA [facility] INTERVENTIONL RAD ??? IR MEDIPORT PLACEMENT 10/04/2021 IR Mediport Placement 10/04/2021 Kelli Diaz PA [facility] INTERVENTIONL RAD ??? IR TUNNELED CENTRAL VENOUS ACCESS NON-DIALYSIS 10/15/2021 IR Tunneled Central Venous Access Non-Dialysis 10/15/2021 Kelli Diaz PA [facility] INTERVENTIONL RAD ? ? PRO DIAGNOSTIC BONE MARROW BIOPSIES & ASPIRATIONS Right 09/12/2021 ([facility]) BONE MARROW BIOPSY AND ASPIRATION; DIAGNOSTIC performed by Parviz Modi MD [facility] OSC ? ? PRO DIAGNOSTIC BONE MARROW BIOPSIES & ASPIRATIONS N/A 10/07/2021 ([facility]) BONE MARROW BIOPSY AND ASPIRATION; DIAGNOSTIC performed by Parviz Modi MD [facility] ??? PRO EXPLORATORY OF ABDOMEN Midline 05/26/2021 @EXPLORATORY LAPAROTOMY, WITH/WITHOUT BIOPSY(S) (WRVU 12.54) performed by Mark Hernandes MD [facility] MAIN OR ??? PRO ILEOSTOMY/JEJUNOSTOMY, NONTUBE N/A 05/28/2021 @ILEOSTOMY OR JEJUNOSTOMY, NON TUBE (WRVU 17.59) performed by Lety Walter MD at [facility] MAIN OR ??? PRO REOPEN RECENT ABD EXPLORATORY N/A 05/28/2021 @EXPLORATORY LAPAROTOMY, REOPENING OF RECENT (WRVU 17.63) performed by Lety Walter MD at [facility] MAIN OR ??? TONSILLECTOMY AND ADENOIDECTOMY ??? XR FLUORO GUIDED LUMBAR PUNCTURE N/A 07/12/2021 XR Fluoro Guided Lumbar Puncture 07/12/2021 Frances Green MD [facility] RAD XRAY ??? XR FLUORO GUIDED LUMBAR PUNCTURE FOR IT CHEMOTHERAPY N/A 07/16/2021 XR Fluoro Guided Lumbar Puncture For IT Chemotherapy 07/16/2021 Nas Patino MD [facility] RAD XRAY ??? XR FLUORO GUIDED LUMBAR PUNCTURE FOR IT CHEMOTHERAPY N/A 07/19/2021 XR Fluoro Guided Lumbar Puncture For IT Chemotherapy 07/19/2021 Shae Alford MD [facility] RAD XRAY ??? XR FLUORO GUIDED LUMBAR PUNCTURE FOR IT CHEMOTHERAPY N/A 07/25/2021 XR Fluoro Guided Lumbar Puncture For IT Chemotherapy 07/25/2021 Nas Patino MD [facility] RAD XRAY ??? XR FLUORO GUIDED LUMBAR PUNCTURE FOR IT CHEMOTHERAPY N/A 07/29/2021 XR Fluoro Guided Lumbar Puncture For IT Chemotherapy 07/29/2021 [facility] RAD XRAY ??? XR FLUORO GUIDED LUMBAR PUNCTURE FOR IT CHEMOTHERAPY N/A 08/05/2021 XR Fluoro Guided Lumbar Puncture For IT Chemotherapy 08/05/2021 Nas Patino MD [facility] RAD XRAY ??? XR FLUORO GUIDED LUMBAR PUNCTURE FOR IT CHEMOTHERAPY N/A 08/01/2021 XR Fluoro Guided Lumbar Puncture For IT Chemotherapy 08/01/2021 Yolette Solano, [facility] RAD XRAY ??? XR FLUORO GUIDED LUMBAR PUNCTURE FOR IT CHEMOTHERAPY N/A 07/22/2021 XR Fluoro Guided Lumbar Puncture For IT Chemotherapy 07/22/2021 [facility] RAD XRAY ??? XR FLUORO GUIDED LUMBAR PUNCTURE FOR IT CHEMOTHERAPY N/A 08/12/2021 XR Fluoro Guided Lumbar Puncture For IT Chemotherapy 08/12/2021 Jona Lowry MD [facility] RAD XRAY ??? XR FLUORO GUIDED LUMBAR PUNCTURE FOR IT CHEMOTHERAPY N/A 08/26/2021 XR Fluoro Guided Lumbar Puncture For IT Chemotherapy 08/26/2021 Yolette Solano, [facility] RAD XRAY ??? XR FLUORO GUIDED LUMBAR PUNCTURE FOR IT CHEMOTHERAPY N/A 09/05/2021 XR Fluoro Guided Lumbar Puncture For IT Chemotherapy 09/05/2021 Yolette Solano, [facility] RAD XRAY ??? XR FLUORO GUIDED LUMBAR PUNCTURE FOR IT CHEMOTHERAPY N/A 09/09/2021 XR Fluoro Guided Lumbar Puncture For IT Chemotherapy 09/09/2021 Yolette Solano, [facility] RAD XRAY ??? XR FLUORO GUIDED LUMBAR PUNCTURE FOR IT CHEMOTHERAPY N/A 09/27/2021 XR Fluoro Guided Lumbar Puncture For IT Chemotherapy 09/27/2021 Yolette Solano, [facility] RAD XRAY Family History Problem Relation Age of Onset ??? Lung Cancer Father Social History Socioeconomic History ??? Marital status: Domestic Partner Spouse name: Chai Encinas ??? Number of children: Not on file ??? Years of education: Not on file ??? Highest education level: Not on file Occupational History ??? Occupation: employed at [employer] Tobacco Use ??? Smoking status: Never Smoker ??? Smokeless tobacco: Never Used Vaping Use ??? Vaping Use: Never used Substance and Sexual Activity ??? Alcohol use: Not Currently Comment: 5 drinks/year ??? Drug use: Never ??? Sexual activity: Not on file Other Topics Concern ??? 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 Lives with girlfriend in [place], [place]. . No biologic children. Social Determinants of Health Financial Resource Strain: Not on file Food Insecurity: Not on file Transportation Needs: Not on file Physical Activity: Not on file Housing Stability: Not on file Current Medications: ??? loperamide 2 mg Oral BID ??? tacrolimus 0.5 mg Intravenous 2 times per day ??? morphine 4 mg Intravenous Q4H ??? DAPTOmycin 10 mg/kg/dose (Adjusted) Intravenous Q24H ??? ceFEPime 2 g Intravenous Q8H ??? metoprolol succinate XL 50 mg Oral Daily ??? ursodiol 300 mg Oral Daily with breakfast ??? ursodiol 600 mg Oral Daily with dinner ??? pantoprazole 40 mg Intravenous BID ??? acyclovir 250 mg/m2/dose (Anton) Intravenous Q12H ??? fluconazole 400 mg Intravenous Q24H ? ? ickmpedrl-ockucpjpt-np-mag-sim 5 mL Oral 4 Times Daily AC & HS ??? gabapentin 200 mg Oral TID ??? sodium chloride 0.9 % (flush) 5 mL Intravenous BID ??? vancomycin 125 mg Oral BID ??? flecainide 50 mg Oral BID ??? supersaturated calcium phosphate 30 mL Oral 4 Times Daily ??? [START ON 11/21/2021] sulfamethoxazole-trimethoprim DS 1 tablet Oral Daily ??? filgrastim-sndz 600 mcg Subcutaneous Daily ??? TPN Adult 120 mL/hr at 11/09/21 1821 Allergy: Allergies Allergen Reactions ??? Other [Unclassified Drug] Other (See Comments) Artificial Sweetners-lightheadedness, dizziness ??? Bactoshield Chg [Chlorhexidine Gluconate] Itching and Rash CHG wipes reported he gets a rash and is itchy. Physical Exam: Vitals: Last value Range last 24 hrs Temperature Temp: 37.7 ??C (99.9 ??F) Temp: [37 ??C (98.6 ??F)-38.6 ??C (101.5 ??F)] Heart Rate Heart Rate: (!) 109 Heart Rate: [106-152] Blood Pressure BP: (!) 137/94 BP: (114-157)/(61-100) Respiratory Rate Resp: 20 Resp: [18-28] SpO2 SpO2: 92 % SpO2: [89 %-95 %] I/O: 11/09 0701 - 11/10 0700 In: 4058.6 [P.O.:50; I.V.:254.2] Out: 3750 [Urine:2325] General: Well developed well nourished male. No acute distress. Appears stated age HEENT: Normocephalic. Atraumatic. Absent conjunctival pallor. Oropharynx - mucositis Pulm: Normal respiratory effort on room air. CV: NRRR Abdomen: Soft, Non-tender, non-distended abdomen Extremities: No C/C/E. Neurologic Exam Neurobehavioral: Level of Consciousness: Awake, Alert, Oriented to person. Language: Fluent, non-dysarthric. Moderate expressive aphasia. ?Sensory neglect Attention and Concentration: Attentive, engaged, and cooperative with exam. Able to complete simple axial and appendicular commands. Cranial Nerves: - CN II, III, IV, : PERRLA. Blink to threat present bilaterally. EOMI without nystagmus. - CN VII: No facial asymmetry - CN VIII: Hearing intact to voice - CN XII: Tongue protrudes midline Motor: Appropriate muscle bulk with preserved normal tone throughout. Pronator Drift absent. UE: 5/5 R, 5/5 L Arm abduction at shoulder 5/5 R, 5/5 L Elbow extension 5/5 R, 5/5 L Elbow flexion 5/5 R, 5/5 L Material Controller LE: 5/5 R, 5/5 L Hip flexion 5/5 R, 5/5 L Knee extension 5/5 R, 5/5 L Knee flexion 5/5 R, 5/5 L Foot dorsiflexion 5/5 R, 5/5 L Foot plantar flexion Sensory: Brisk withdrawal from noxious stimuli in all 4 extremities. DTRs: 2+ R, 2+ L Biceps 2+ R, 2+ L Brachioradialis 2+ R, 2+ L Triceps 2+ R, 2+ L Patellar 2+ R, 2+ L Achilles tendon Clonus: Absent to forced dorsiflexion bilaterally. Coordination: FNF intact without dysmetria or cerebellar ataxia Finger tapping grossly symmetric Gait: Deferred NIH Stroke Scale NIH Stroke Scale Date 11/10/21 NIH Stroke Scale Time 1008 Level of Consciousness 0 LOC Questions 2 LOC Commands 0 Best Gaze 0 Vision 0 Facial Palsy 0 Motor Arm, Left 0 Motor Arm, Right 0 Motor Leg, Left 0 Motor Leg, Right 0 Limb Ataxia 0 Sensory 0 Best Language 1 Dysarthria 0 Extinction and Inattention: 1 NIH Total Score 4 Labs: Lab Results Component Value Date WBC 0.4 (CRIT) 11/10/2021 HGB 7.0 (L) 11/10/2021 HCT 20.0 (L) 11/10/2021 MCV 87.0 11/10/2021 PLATELET 17 (CRIT) 11/10/2021 Lab Results Component Value Date NA 140 11/10/2021 K 3.9 11/10/2021 CL 100 11/10/2021 CO2 28 11/10/2021 BUN 23 (H) 11/10/2021 CREATININE 0.96 11/10/2021 GLUCOSE 129 11/10/2021 GLUCFASTING 225 (H) 10/17/2021 CALCIUM 8.4 (L) 11/10/2021 ESTGFR 85 11/10/2021 Neurodiagnostics: Results for orders placed or performed during the hospital encounter of 10/15/21 XR Chest PA & Lateral (Generic) (Exam End: 10/19/2021 1:58 PM) Narrative EXAMINATION: XR CHEST PA AND LATERAL (GENERIC) CLINICAL HISTORY: worsening fever TECHNIQUE: PA and lateral views of the chest COMPARISON: None FINDINGS: There is right-sided Ylluhv-g-Kvdn with its tip in the SVC. Right-sided central venous catheter with its tip in the SVC is also identified. No focal infiltrate to suggest pneumonia. No pleural effusions or pneumothorax. The heart is not enlarged. Impression Clear lungs. Thank you for letting us participate in the care of this patient. If you are a health care provider and have any questions regarding this report, please contact the number below. For patients who have questions please contact the health resident care supervisor that requested your imaging first. Electronically signed by: Domingo Lantigua [facility] ([phone]), at 10/19/2021 2:01 PM XR Chest One View (Exam End: 11/02/2021 9:36 AM) Narrative EXAMINATION: XR CHEST ONE VIEW CLINICAL HISTORY: Neutropenic fever TECHNIQUE: 1 view of the chest AP portable COMPARISON: October 19, 2021 FINDINGS: Right central venous access port remains in position with the tip overlying the upper right atrium. Left subclavian double-lumen catheter is present with the tip overlying the superior vena cava. The visualized lungs are clear and adequately expanded. Heart and pulmonary vasculature are normal. No significant osseous abnormality is seen. Impression No active disease in the chest. Thank you for letting us participate in the care of this patient. If you are a health care provider and have any questions regarding this report, please contact the number below. For patients who have questions please contact the health resident care supervisor that requested your imaging first. Electronically signed by: Renny Yu MD, [facility] ([phone]), at 11/02/2021 10:[address] Abdomen & Pelvis w Contrast (Exam End: 11/03/2021 7:49 PM) Narrative EXAMINATION: CT ABDOMEN AND PELVIS W CONTRAST CLINICAL HISTORY: Abdominal abscess/infection suspected 61 yr with AML admitted for allo HCST, also has hx of c. 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 Omnipaque 350-118 mL administered intravenously. Oral contrast was not administered. COMPARISON: Abdomen pelvic CT, June 2021. FINDINGS: Lower chest: The tip of a central venous catheter is in the RIGHT atrium. Trace RIGHT pleural effusion. No pericardial effusion. Groundglass opacities in LEFT lung base most prominent in the lingula, series 3 image 1. Findings suspicious for infection. Hiatal hernia with new esophageal wall thickening and periesophageal fat stranding. air and fluid mixture in the dilated and thick walled distal esophagus, series 3 image 1. Several small paraesophageal lymph node is similar to last examination fissuring is 7 mm short axis series 3 image 1. Liver: The liver is 18 cm in length. Normal attenuation without mass lesion. Bile ducts: Nondilated. Gallbladder: No calcified gallstones. Normal caliber wall. Pancreas: Normal attenuation without ductal dilatation. Spleen: resolution of splenomegaly.The spleen is now 13 cm length Small hypodensities in spleen tip is smaller and likely represent resolving splenic infarct. The perisplenic fat stranding is also resolved. Adrenals: Normal. Kidneys: Symmetric renal size and nephrogram. No calculi or dilated collecting system. Urinary Bladder: Normal. Vasculature: No aneurysm. Lymph Nodes: No enlarged retroperitoneal and mesenteric lymph nodes. Bowel: Total colectomy with a RIGHT lower quadrant ileostomy. No intestinal dilatation. No wall thickening. Peritoneum and mesentery: No ascites, free air, or loculated fluid collection. No mesenteric inflammation. Abdominal wall: Normal. Reproductive organs: Enlarged prostate gland, 65 x 59 mm, indenting on the bladder base. Osseous structures: No pathologic fracture or focal lesion of bone. 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 Impression 1. Ill defined opacities in lingula may represent pneumonia. Consider follow-up chest x-ray if indicated. 2. No abdominal or pelvic abscess seen. 3. Hiatal hernia with fat stranding around a thick walled and dilated distal esophagus. Finding may represent esophagitis. 4. Resolution of splenomegaly. 5. No enlarged abdominal and pelvic lymph nodes. 6. No abdominal or pelvic ascites. Thank you for letting us participate in the care of this patient. If you are a health care provider and have any questions regarding this report, please contact the number below. For patients who have questions please contact the health resident care supervisor that requested your imaging first. Electronically signed by: Daniela Roach MD, [facility] ([phone]), at 11/03/2021 8:25 PM XR Chest One View (Exam End: 11/04/2021 8:50 AM) Narrative EXAMINATION: XR CHEST ONE VIEW CLINICAL HISTORY: 61 yr with AML admitted for allo HCST, having neutropenic fever, Ill defined opacities in lingula may represent pneumonia seen on CT A/P yesterday TECHNIQUE: 1 view of the chest COMPARISON: Chest radiograph 11/02/2021. Abdomen CT 11/03/2021 FINDINGS: Left basilar airspace opacity seen on 11/02/2021 has resolved. Central pulmonary vessels, daina, and cardiac mediastinal silhouette are stable compared to the prior exam. No obvious effusion. Right-sided port catheter ends at the superior cavoatrial junction. Left subclavian catheter has flipped into the azygos vein (when compared to 10/19/2021). Impression Radiographically the left basilar airspace opacity seen on 11/02/2021 has resolved and findings are now similar compared to a radiograph from 10/19/2021. However, it is uncertain to which extent the mild opacities seen on CT 11/03/2021 still persist or have resolved (due to difference in technique). Within the limitation of single frontal view the change in positioning of the left subclavian central venous catheter in comparison to 10/19/2021 is due to the fact that the tip has flipped into the azygos vein (unchanged to 11/02/2021). Please correlate clinically if functionality of this catheter remains adequate. Thank you for letting us participate in the care of this patient. If you are a health care provider and have any questions regarding this report, please contact the number below. For patients who have questions please contact the health resident care supervisor that requested your imaging first. Electronically signed by: Elizabeth Worthington MD, [facility] ([phone]), at 11/04/2021 9:17 AM XR PICC Placement Over 5 Years with Imaging Guidance (IV Team) (Exam End: 11/04/2021 4:06 PM) Narrative EXAMINATION: XR PICC PLACEMENT OVER 5 YEARS WITH IMAGING GUIDANCE (IV TEAM) CLINICAL HISTORY: Confirmation of PICC line placement TECHNIQUE: C-arm placement of PICC line. Limited view of the line tip only. COMPARISON: FINDINGS: Intraprocedural frontal radiograph of the mediastinum demonstrates a right-sided PICC line, with the catheter tip projected at the SVC/right atrial junction. Impression Well-positioned right-sided PICC line. Thank you for letting us participate in the care of this patient. If you are a health care provider and have any questions regarding this report, please contact the number below. For patients who have questions please contact the health resident care supervisor that requested your imaging first. Electronically signed by: Lobo Beck MD, [facility] ([phone]), at 11/04/2021 4:10 PM IR Line or Tube Removal in Recovery Room (Exam End: 11/05/2021 4:32 PM) Narrative Interventional Radiology Procedure Note Procedure: Tunneled central venous catheter explant Indication: VRE bacteremia, discontinue durable intermediate central venous access Pre-procedure: Informed consent for the procedure including risks, benefits and alternatives was obtained and time-out was performed prior to the procedure. The site was prepared and draped using sterile barrier technique including sterile gloves, cap, mask, hand hygiene and cutaneous antisepsis. Sedation: None Technique: Local anesthetic was administered at the catheter exit site. The catheter cuff was identified and freed from subcutaneous tissue with a combination of traction and blunt dissection. Catheter was withdrawn intact from the tunnel site. Hemostasis was achieved with manual compression. Clean and sterile dressing applied. Medications: Lidocaine 1% <10 cc subcutaneous, 1 U platelets IV Contrast: None Fluoroscopy time: None Estimated blood loss: 3 mL Complications: No immediate Impression: Removal of left internal jugular, Feliciano Trifusion 12 Fr three-lumen cuffed catheter in its entirety. Service provider: Kelli Diaz PA-C Attending of Record: Deng Talbot MD 11/05/2021 CT Head wo & Multiphase CTA Head/Neck (THROMBECTOMY PROTOCOL) (Exam End: 11/10/2021 10:34 AM) Narrative EXAMINATION: CT HEAD WO & MULTIPHASE CTA HEAD/NECK (THROMBECTOMY PROTOCOL) CLINICAL HISTORY: Concern for hemmorhagic stroke TECHNIQUE: CT of head without intravenous contrast. Multiphase CTA of the carotids and [place] of Nicolas is performed after the administration of 65cc of Omnipaque 350 intravenous contrast. MIP and 3-D volumetric reconstructions were created. COMPARISON: Noncontrast head CT 07/07/2021 FINDINGS: Noncontrast head CT: There is hypodensity in the posterior aspect of the right occipital lobe which involves the alfaro and white matter consistent with cytotoxic edema from acute infarct. No additional area of edema. No acute intracranial hemorrhage, mass, mass effect, hydrocephalus, or midline shift. CTA HEAD: No aneurysm, vascular malformation, significant arterial stenosis, cut off, or other significant arterial abnormality. CTA NECK: No significant stenosis, cut off, dissection, pseudoaneurysm, or other significant arterial abnormality of the large arteries of the neck. Impression Noncontrast head CT: Acute infarct in the posterior aspect of the right occipital lobe with no acute hemorrhage. Please also see follow-up MRI brain findings, study currently pending. CTA head and neck: No significant arterial abnormality. Specifically, no proximal branch occlusion. I discussed these results with Dr. Ninoska Ponce on 11/10/2021 at 11:20 AM and verified that he understood these results. Thank you for letting us participate in the care of this patient. If you are a health care provider and have any questions regarding this report, please contact the number below. For patients who have questions please contact the health resident care supervisor that requested your imaging first. Electronically signed by: Hollie Collier MD, [facility] ([phone]), at 11/10/2021 11:28 AM Assessment: Luis Manuel Mobley Jr. is a 61 y.o. 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 Complicated hospital course post-transplant as listed above however patient appeared to remain at his baseline neurologically since admission. This morning was witnessed to have an acute change characterized by word finding difficulties and facial asymmetry prompting activation of stroke alert. Neurologic examination notable primarily for moderate expressive aphasia. NCCTH obtained during the stroke alert demonstrates an area of hypoattenuation within the right occipital lobe suggestive of acute infarction. Given findings on NCCTH, platelet count of 17, and mucositis as well as history of heme positive stool during this admission patient was deemed not a candidate for alteplase. Patient wasalso deemed not a candidate for thrombectomy absence of LVO on vessel imaging. Etiology of his infarct merits further investigation and recommend the diagnostic work up outlined below. At this time patient is not a candidate for antiplatelet therapy for secondary stroke prevention due to concurrent medical conditions. Further recommendations regarding secondary stroke preventionto come following completion of diagnostic work up. Recommendations: - Recommend continuous telemetry monitoring and 12-lead EKG - Recommend MRI Brain W/WO Contrast - Recommend ECHO with bubble study - Recommend Stroke Stratification Labs: Hgb A1c, Lipid Panel - Recommend holding antiplatelet for secondary stroke prevention for now given mucositis and platelet count 17 - Recommend starting rosuvastatin 40 mg - titrate pending results of lipid panel Benita Whitfield DO Neurology PGY-4 Vascular Neurology Pager #[phone] Associated attestation - Abdifatah Florence MD - 11/10/2021 3:09 PM EDT I have seen and examined Luis Manuel Mobley Jr. with the neurology team and agree with the assessment and plan as below. ? R Occipital stroke: 61 Y m with history of Afib, PE, AML s/p SCT with thrombocytopenia who developed confusion, speech difficulties and left facial droop today AM. He is slightly confused. Subtle left facial asymmetry. No significant weakness. Petechiae and bleeding from mouth related to hematologic situation. No LVO on CTA but CT shows evidence a R occipital stroke. Not a tPA, thrombectomy candidate. Also has high risk for bleeding from aspirin therefore can be held. Embolic process likely. MRI Brain. Abdifatah Florence MD Department of Neurology [facility] Consult Note - Serenity Frey RN - 11/07/2021 10:56 AM EDT Inpatient Ostomy Progress Note Surgery/Date:??05/28/21??Procedure(s) (LRB): @ILEOSTOMY OR JEJUNOSTOMY, NON TUBE (WRVU 17.59) (N/A) @EXPLORATORY LAPAROTOMY, REOPENING OF RECENT (WRVU 17.63) (N/A)? Diagnosis:??C diff colitis? Surgeon:??Dr. Lety Walter Appliance: Removed #[id number] with adapt ring and elastic barrier strips, replaced with the same. Changed: [x} Yes Stoma: red, some black ulcerations still present at tip of stoma, around os, it does not appear worse and may even be slightly improved from Thursday's photo. No bleeding present. Peristomal Skin: Healthy, intact. Teaching: Reviewed pouch change. Family Present: [x} No Psychosocial Acceptance: He is well adjusted to life with an ileostomy. He is just discouraged abouthis blood counts not coming up sooner so he can go home, but he was reassured by his primary team that he is doing well and they think he is on the right track. Special Notes: His stool in the tubing of the overnight drainage bag looked dark, almost black with green tinge. I showed this to the judicial assistant and resident and asked if they wanted an Occult blood test, but they stated that they would anticipate blood in his stool since he has the ulcers in his mouth that are bleeding. They are closely monitoring his blood counts and at this time these are stable. He has supplies for two spare pouch changes. Care Management - Aruna Saunders RN - 11/07/2021 9:32 AM EDT OFFICE OF CARE MANAGEMENT PROGRESS NOTE LOS: Hospital Day 23 days Chart reviewed, care reviewed with primary team and at interdisciplinary rounds. Patient continues to meet inpatient level of care related to: SCT. Functional status prior to admission: Independent Home Environment: Others in the home: significant other, pet(s) (So Chrissy and 2 cats). Current Living Arrangements: home/apartment/condo. Accessibility Concerns: 3 MAXIMUS, mainly one floor. Current Functional Ability: Independent DME used at home: unable to assess DME Needed at Discharge: N/A Patient is insured through: Primary Insurance: [facility] Payor: [facility] / Plan: [facility] PPO / Product Type: *No Product type* / Secondary Insurance: [employer] Prescription Coverage: Yes Preferred Pharmacy: [id number] - [place], [place] - [address] [place] [address] AT [address] OF [address] [address] [facility] - [place] - [facility] [address] [facility] [place] - [address] [place] [address] [address] [facility] [address] [facility] [address] [id number] - [place], [place] - [address] [place] [address] [address] [facility] [address] [id number] - [place], [place] - [address] [facility] [address] [address] [id number] - [place], [place] - [address] [facility] [address] [facility] [address] [facility] [address] Last Physical Therapy Recommendation: home with home health with to be determined Plan for discharge is: Home w/o Services Outpatient Agency/Support Group Needs: None Agency Referrals & Follow-up Care:N/A Transportation: family or friend will provide Barriers to discharge: Discharge planning Plan going forward: Care Management will continue to follow and assist with discharge planning and coordination of care as indicated. Anticipated Date of Discharge: 11/11/2021 Aruna Saunders RN, BSN, [place] [employer] Pager [phone] Consult Note - Serenity Frey RN - 11/04/2021 5:03 PM EDT Images from the original note were not included. Inpatient Ostomy Progress Note ?? Surgery/Date:??05/28/21??Procedure(s) (LRB): @ILEOSTOMY OR JEJUNOSTOMY, NON TUBE (WRVU 17.59) (N/A) @EXPLORATORY LAPAROTOMY, REOPENING OF RECENT (WRVU 17.63) (N/A)? Diagnosis:??C diff colitis? Surgeon:??Dr. Lety Walter ?? Pouching System:??Removed Coloplast high output (HO) convex pouch #[id number] with ring & barrier strips and replaced with same. Stoma Appearance:??Red, moist, oval, when pouch was first removed there was a gathering of dark black/green mucous that seemed to be attached to his os, it took a bit to get it off and when I removed it, there were what appeared to be black ulcerations. No bleeding or pain present. Stoma continues to function the same. He has sores in his mouth from the methotrexate and I suspect that is happening tothe mucosa of his ostomy as well. Peristomal Skin:??health, intact ?? Ostomy Output:??Thin liquid stool.??He stated he hasn't been able to take his imodium the past few days due to sores in his mouth, but he did take them today. ?? Today's visit, teaching and recommendations: We discussed the portion of his os that appears to be ulcerated. His significant other was there watching the pouch change and she does this at home as wellwith him. He has supplies for two pouch changes in his room. Stoma: Plan of Care - Kat Pak RN - 11/04/2021 4:22 PM EDT Peripherally Inserted Central Catheter (PICC) Teaching Sheet Peripherally inserted central catheters (gyrx-af-wchh) (PICC) are used when you need IV (intravenous) medicines and fluids. A catheter is a small flexible plastic tube. The catheter is put in through avein under your skin. A vein is a tube inside your body that carries blood from the body to the heart. The catheter is usually put into a vein on the inside of your upper arm. Then it is threaded up this vein and ends in the blood vessel near your heart. The PICC catheter may be used for taking blood for laboratory tests. You may also get IV fluids and medicines quickly and easily. Having the catheter may keep your arm from being stuck many times with a needle. The catheter will have 1-3 small tails (tubes) coming from your arm where the catheter was put in. Why do I need a PICC line or midline catheter? PICC lines are used for termite technician treatments. PICC lines may be used for up to a year. They are often put in to give you IV medicines at home. You may need a PICC catheter because caregivers cannot use smaller veins in your body. Smaller veins may be damaged, or they may have poor blood flow. Catheters are also used in case of emergency when you would need medicines or fluids very quickly. The following are medicines and treatments you may get when you have a PICC line. ?? Antibiotics. These are medicines to prevent infection. ?? Frequent blood sample collection. ?? IV medicines that would make your smaller veins sore or damaged. ?? Receiving IV fluids for a long period of time. ?? Pain medicine. ?? Total Parenteral Nutrition: This is also called TPN. TPN is a special liquid food that goes directly into your veins. ?? Blood ?? Chemotherapy (Medicine for cancer) What are the benefits of having a PICC line put in? Having a PICC line may keep your arm from being stuck many times with a needle to draw blood or start an IV (intravenous catheter) . Through a PICC catheter, you may have blood taken for tests. You may also get IV fluids and medicines quickly and easily. Small veins can be damaged or irritated by certain drugs or nutritional solutions. A PICC line helps to decrease vein irritation from antibiotics, IV pain drugs, or IV cancer drugs. A PICC line can be left in place when you go home. If you go home with a PICC line in place, home care can be set up via the nurse Calciner Operator Helper to help you. What are possible complications of having a PICC line put in? Some possible complications are: bruising, swelling, or infection in the arm with the PICC line mal-positioned catheter (catheter tip in wrong place) occlusion (blocked catheter) mechanical phlebitis (vein irritation) and thrombosis (clot) Your doctor is the person you should talk to if you have questions about what would happen if you donot choose to have a PICC line put in. Your doctor can talk to you about other choices you may have. What should I expect when it is put in? A written consent that gives your ok to have it put in needs to be signed after you understand that you are going to have a PICC put in, and all your questions about the procedure have been answered toyour satisfaction. This is a safety feature that the hospital practices before doing procedures. An experienced nurse who has been through special training and education will be putting this catheter in. The procedure is done in a specially equipped room in Interventional Radiology on the third floor. The PICC nurse will first talk to you about any questions that you may have. The PICC nurse willexplain to you what is going to be done before starting. Once you arrive in the procedure room in Interventional Radiology, the PICC nurse will then set up for the procedure. She will unwrap the sterile kit and open the needed supplies. A gown and mask and gloves will be worn while putting it in. An ultrasound machine will be used to help guide the catheterin the right place. This machine uses a handle with sound waves to find the vein. The area on your arm where the catheter will be put in is then numbed with a medicine put under yourskin with a tiny needle. The nurse will then put in the catheter using fluoroscopy (a type of x-ray)as a guide. Once the catheter is in your vein, it will be threaded up your arm to the area before your heart. While it is being threaded, you may be asked to turn your head. When the catheter is in, the nurse will place a small dressing on the site along with a little david which will help keep the catheter in place. After the procedure is done, a radiologist (doctor in x-ray department) will look at your x-ray to make sure that the end of the catheter is in proper position to give your fluids and/or medications. What should I expect in the care of my PICC? A dressing that is specially made to prevent infections will be put on. After this, the dressing will only be changed once a week unless it needs it sooner. If you go home with the catheter in, you may take a shower as long as you keep the site dry. You emerson this by wearing a specially fitted PICC protector that will be provided to you before discharge from the hospital. The dressing at the site must be kept clean and dry. It is important that you watch for signs of infection at the site. Your healthcare provider should be notified if these occur: Redness Swelling Pus Pain at the site Other reasons to notify your healthcare provider are: Catheter becomes partially or totally removed Unable to infuse medication/fluid Unable to draw back blood from the catheter. This may be an early sign that a clot is forming on the end of the catheter. If this occurs, a medicine called Cathflo may be used to dissolve this clot. Ask the PICC nurse or your doctor, any questions you may have so you feel secure in consenting to having a PICC line. References: Vascular Access Device Selection, Insertion, and Management, [employer] 05/21. A Review of the Efficacy, Safety, Use, and Administration of Cathflo, [employer] 2005 Care Management - Aruna Saunders RN - 11/04/2021 12:05 PM EDT OFFICE OF CARE MANAGEMENT PROGRESS NOTE LOS: Hospital Day 20 days Chart reviewed, care reviewed with primary team and at interdisciplinary rounds. Patient continues to meet inpatient level of care related to: SCT. Functional status prior to admission: Independent Home Environment: Others in the home: significant other, pet(s) (So Chrissy and 2 cats). Current Living Arrangements: home/apartment/condo. Accessibility Concerns: 3 MAXIMUS, mainly one floor. Current Functional Ability: Independent DME used at home: unable to assess DME Needed at Discharge: N/A Patient is insured through: Primary Insurance: [facility] Payor: [facility] / Plan: [facility] PPO / Product Type: *No Product type* / Secondary Insurance: [employer] Prescription Coverage: Yes Preferred Pharmacy: [facility][id number] - [place], [place] - [address] [place] [address] AT [address] OF [address] [address] [facility] [place] [facility] [address] [facility] [address] [facility] [address] [facility] [address] [id number] - [place], [place] - [address] [facility] [address] [facility] [address] [facility][id number] - [place], [place] - [address] [facility] AT SEC OF [facility] [address] [address] [id number] - Psychiatric [id number] [place], [place] [id number] [place] [phone] Last Physical Therapy Recommendation: home with home health, home with supervision with to be determined Plan for discharge is: Home w/o Services Outpatient Agency/Support Group Needs: None Agency Referrals & Follow-up Care:N/A Transportation: family or friend will provide Barriers to discharge: Discharge planning Plan going forward: Care Management will continue to follow and assist with discharge planning and coordination of care as indicated. Anticipated Date of Discharge: 11/08/2021 Aruna Saunders RN, BSN, [place] [employer] Helper Pager [phone] Consult Note - Lanny Bryant MD - 11/03/2021 10:05 AM EDT Images from the original note were not included. INFECTIOUS DISEASE CONSULTATION NOTE Reason for Consult: VRE Bacteremia Consulting Service: Heme Onc Consulting Attending: Urban Dos Santos MD Admission Date: 10/15/2021 History of Present Illness: 61 y.o. male with a history of gastric esophageal reflux disorder, paroxysmal A. fib, relapsed AML status post FLT3 positive s/p 7+3 induction??chemotherapy (D1 05/08/21)??plus midostaurin with a hospital course complicated by C. 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 He had a tunneled line placed on 10/15 for chemotherapy. Hewas placed on the following prophylactic antimicrobial regimen: - acyclovir on day -7, - TMP-SMX daily day -7 through day -2 - fluconazole and Levaquin on day 0 until ANC >500 During his treatment course the patient developed mucositis and overnight 10/19 he developed a fever where 1 of 2 blood cultures were positive for strep initiating cefepime (levofloxacin was stopped). Hehad been having increased oral output since his hospitalization prompting testing for C. difficile with the most recent test on 10/28 was negative. It was noted on 10/30 his tunneled line was slightly red and tender. On 11/02 his mucositis worsened and he fevered again to 38.2. Blood cultures at that time were drawn which have now speciated to VRE. Upon interview with the patient he developed severe mouth pain and decreased appetite which is improved. He is currently on TPN. He denies any active nausea vomiting or worsening in high ostomy output Review of Systems: Pertinent positives and negatives [...] Date ??? ACHILLES TENDON SURGERY ??? IR MEDIPORT PLACEMENT 10/04/2021 IR Mediport Placement 10/04/2021 Kelli Diaz PA [facility] RAD ??? IR TUNNELED CENTRAL VENOUS ACCESS NON-DIALYSIS 10/15/2021 IR Tunneled Central Venous Access Non-Dialysis 10/15/2021 Kelli Diaz PA [facility] RAD ? ? PRO DIAGNOSTIC BONE MARROW BIOPSIES & ASPIRATIONS Right [facility]/12[facility]20[facility] [place] [facility] BONE MARROW BIOPSY AND ASPIRATION; DIAGNOSTIC performed by Parviz Modi MD [facility] ? ? PRO DIAGNOSTIC BONE MARROW BIOPSIES & ASPIRATIONS N/A 10/07/2021 ([facility]) BONE MARROW BIOPSY AND ASPIRATION; DIAGNOSTIC performed by Parviz Modi MD [facility] ??? PRO EXPLORATORY OF ABDOMEN Midline 05/26/2021 @EXPLORATORY LAPAROTOMY, WITH/WITHOUT BIOPSY(S) (WRVU 12.54) performed by Mark Hernandes MD [facility] OR ??? PRO ILEOSTOMY/JEJUNOSTOMY, NONTUBE N/A 05/28/2021 @ILEOSTOMY OR JEJUNOSTOMY, NON TUBE (WRVU 17.59) performed by Lety Walter MD at [facility] MA[facility] OR ??? PRO REOPEN RECENT ABD EXPLORATORY N/A 05/28/2021 @EXPLORATORY LAPAROTOMY, REOPENING OF RECENT (WRVU 17.63) performed by Lety Walter MD at [facility] OR ??? TONSILLECTOMY AND ADENOIDECTOMY ??? XR FLUORO GUIDED LUMBAR PUNCTURE N/A 07/12/2021 XR Fluoro Guided Lumbar Puncture 07/12/2021 Frances Green MD [facility] RAD XRAY ??? XR FLUORO GUIDED LUMBAR PUNCTURE FOR IT CHEMOTHERAPY N/A 07/16/2021 XR Fluoro Guided Lumbar Puncture For IT Chemotherapy 07/16/2021 Nas Patino MD [facility] RAD XRAY ??? XR FLUORO GUIDED LUMBAR PUNCTURE FOR IT CHEMOTHERAPY N/A 07/19/2021 XR Fluoro Guided Lumbar Puncture For IT Chemotherapy 07/19/2021 Shae Alford MD [facility] RAD XRAY ??? XR FLUORO GUIDED LUMBAR PUNCTURE FOR IT CHEMOTHERAPY N/A 07/25/2021 XR Fluoro Guided Lumbar Puncture For IT Chemotherapy 07/25/2021 Nas Patino MD [facility] RAD XRAY ??? XR FLUORO GUIDED LUMBAR PUNCTURE FOR IT CHEMOTHERAPY N/A 07/29/2021 XR Fluoro Guided Lumbar Puncture For IT Chemotherapy 07/29/2021 [facility] RAD XRAY ??? XR FLUORO GUIDED LUMBAR PUNCTURE FOR IT CHEMOTHERAPY N/A 08/05/2021 XR Fluoro Guided Lumbar Puncture For IT Chemotherapy 08/05/2021 Nas Patino MD [facility] RAD XRAY ??? XR FLUORO GUIDED LUMBAR PUNCTURE FOR IT CHEMOTHERAPY N/A 08/01/2021 XR Fluoro Guided Lumbar Puncture For IT Chemotherapy 08/01/2021 Yolette Solano, HEYDI [facility] RAD XRAY ??? XR FLUORO GUIDED LUMBAR PUNCTURE FOR IT CHEMOTHERAPY N/A 07/22/2021 XR Fluoro Guided Lumbar Puncture For IT Chemotherapy 07/22/2021 [facility] RAD XRAY ??? XR FLUORO GUIDED LUMBAR PUNCTURE FOR IT CHEMOTHERAPY N/A 08/12/2021 XR Fluoro Guided Lumbar Puncture For IT Chemotherapy 08/12/2021 Jona Lowry MD [facility] RAD XRAY ??? XR FLUORO GUIDED LUMBAR PUNCTURE FOR IT CHEMOTHERAPY N/A 08/26/2021 XR Fluoro Guided Lumbar Puncture For IT Chemotherapy 08/26/2021 Yolette Solano, HEYDI [facility] RAD XRAY ??? XR FLUORO GUIDED LUMBAR PUNCTURE FOR IT CHEMOTHERAPY N/A 09/05/2021 XR Fluoro Guided Lumbar Puncture For IT Chemotherapy 09/05/2021 Yolette Solano, HEYDI [facility] RAD XRAY ??? XR FLUORO GUIDED LUMBAR PUNCTURE FOR IT CHEMOTHERAPY N/A 09/09/2021 XR Fluoro Guided Lumbar Puncture For IT Chemotherapy 09/09/2021 Yolette Solano, HEYDI [facility] RAD XRAY ??? XR FLUORO GUIDED LUMBAR PUNCTURE FOR IT CHEMOTHERAPY N/A 09/27/2021 XR Fluoro Guided Lumbar Puncture For IT Chemotherapy 09/27/2021 Yolette Solano, HEYDI [facility] RAD XRAY Medications: ??? DAPTOmycin (Cubicin) 845 mg in sodium chloride 0.9% 66.9 mL ??? magnesium sulfate 2 g in sterile water 50 mL infusion ??? potassium chloride 20 mEq in sterile water 100 mL infusion ??? metoprolol succinate XL (Toprol-XL) tablet 50 mg ??? morphine (2 mg/mL) injection 2 mg OR morphine (4 mg/mL) injection 4 mg OR morphine (2 mg/mL) injection 6 mg ??? lidocaine (Xylocaine) 2 % viscous solution 15 mL ??? magnesium sulfate 2 g in sterile water 50 mL infusion ??? magnesium sulfate 1 g in dextrose 5% 100 mL infusion ??? potassium chloride 20 mEq in sterile water 100 mL infusion ??? potassium chloride ER (K-Dur/Klor-Con) tablet 40 mEq ??? potassium chloride ER (K-Dur/Klor-Con) tablet 20 mEq ??? ursodiol (Actigall) (60 mg/mL) oral liquid 300 mg ??? ursodiol (Actigall) (60 mg/mL) oral liquid 600 mg ??? pantoprazole (Protonix) injection 40 mg ??? TPN Adult ??? acetaminophen (Tylenol) (32.02 mg/mL) oral liquid 975 mg ??? acyclovir (Zovirax) 472.5 mg in sodium chloride 0.9% 259.45 mL infusion ??? fluconazole (Diflucan) 400 mg in sodium chloride 0.9% 200 mL infusion ??? loperamide (Imodium A-D) capsule 2 mg ??? tacrolimus (Prograf) 0.7 mg in dextrose 5% Non-PVC 150.7 mL infusion ??? camphor-menthoL (Sarna) lotion ??? diphenhydrAMINE/aluminum-magnesium hydroxide with simethicone/lidocaine (BMX) (6.67 mg-0.83 mg-13.33 mg-1.33 mg/mL) oral liquid 5 mL ??? loperamide (Imodium A-D) capsule 2 mg ??? alum-mag hydroxide-simeth (Maalox) (40 mg-40 mg-4 mg/mL) oral liquid 10 mL ??? calcium carbonate (Tums) chewable tablet 500 mg ??? sucralfate (Carafate) (100 mg/mL) oral liquid 1 g ??? gabapentin (Neurontin) capsule 200 mg ??? furosemide (Lasix) (10 mg/mL) injection 60 mg ??? furosemide (Lasix) (10 mg/mL) injection 60 mg ??? sodium chloride 0.9 % (flush) (BD PosiFlush Normal Saline 0.9) flush 5 mL ??? sodium chloride 0.9 % (flush) (BD PosiFlush Normal Saline 0.9) flush 5-20 mL ??? lidocaine (Xylocaine) 1% (10 mg/mL) injection 3 mg ??? vancomycin (Vancocin) capsule 125 mg ??? flecainide (Tambocor) tablet 50 mg ??? LORazepam (Ativan) (2 mg/mL) injection 0.5 mg ??? ondansetron (pf) (Zofran) (2 mg/mL) injection 8 mg ??? prochlorperazine (Compazine) (5 mg/mL) injection 10 mg ??? supersaturated calcium phosphate (Caphosol) oral solution 30 mL ??? [START ON 11/21/2021] sulfamethoxazole-trimethoprim DS (Bactrim DS) 800-160 mg per tablet 1 tablet ??? filgrastim-sndz (Zarxio) (300 mcg/0.5 mL) injection 600 mcg ??? heparin (pf) (porcine) (100 units/mL) flush 5 mL syringe 500 Units ??? sodium chloride 0.9 % (flush) (BD PosiFlush Normal Saline 0.9) flush 5-20 mL Allergies: Allergies Allergen Reactions ??? Other [Unclassified Drug] Other (See Comments) Artificial Sweetners-lightheadedness, dizziness ??? Bactoshield Chg [Chlorhexidine Gluconate] Itching and Rash CHG wipes reported he gets a rash and is itchy. Family History: Denies FH of recurrent infections Social History: Lives with his girlfriend in [place], [place]. Has 2 cats No recent Travel Physical Exam: Last value Range last 24 hrs Temperature Temp: 37.6 ??C (99.7 ??F) Temp: [37.4 ??C (99.3 ??F)-39.4 ??C (103 ??F)] Heart Rate Heart Rate: (!) 110 Heart Rate: [110-111] Blood Pressure BP: 117/66 BP: (114-135)/(64-77) Respiratory Rate Resp: 22 Resp: [17-28] SpO2 SpO2: 95 % SpO2: [93 %-98 %] General: NAD Head: NC AT EENT:EOMI inflamed oral mucosa Neck: no obvious JVD Cardiovascular: RRR Pulmonary: non labored respirations Abdomen: ND, colostomy with watery brown stool Ext: UE and LE WWP Skin: No obvious rashes, some surrounding erythema noted around CARY chest line Neuro: No facial droop or slurring of speech Laboratory: Recent Labs 11/03/21 0415 11/02/21 0350 11/01/21 1855 WBC 0.1* 0.0* 0.0* HGB 6.6* 7.9* 6.5* HCT 18.3* 21.3* 18.0* PLATELET 14* 31* 15* Recent Labs 11/03/21 0415 11/02/21 0350 11/01/21 0450 NA 140 141 140 K 3.4* 4.1 4.5 CL 108* 111* 116* CO2 19* 15* 15* BUN 36* 36* 40* CREATININE 1.32 1.29 1.26 Recent Labs 11/02/21 0350 10/31/21 0415 10/28/21 0445 AST 16 18 26 ALT 41 42 65* ALKPHOS 121 118 104 BILITOT 0.4 0.3 0.3 BILIDIR 0.2 0.1 0.1 Component Value Date/Time SPGRAVITYUA 1.018 11/01/2021 1711 PHUADIP 5.5 11/01/2021 1711 PROTEINUADIP 100 (A) 11/01/2021 1711 GLUCOSEU Negative 11/01/2021 1711 KETONESUA Negative 11/01/2021 1711 UROBILIUADIP Normal 11/01/2021 1711 BLOODUADIP Moderate (A) 11/01/2021 1711 NITRATEUA Negative 11/01/2021 1711 LEUKOESTERUA Negative 11/01/2021 1711 WBCUA 1 11/01/2021 1711 BILIRUBINUA Negative 11/01/2021 1711 Micro: Blood Culture: 10/20 (-) 10/19 (-) 11/02 Growth detected in anaerobic bottle. Gram Positive Cocci in pairs seen 10/28 C diff screen (-) Scheduled Meds: ??? DAPTOmycin 10 mg/kg/dose (Adjusted) Intravenous Q24H ??? magnesium sulfate 2 g Intravenous Once ??? potassium chloride 20 mEq Intravenous Q2H ??? metoprolol succinate XL 50 mg Oral Daily ??? lidocaine 15 mL Mucous Membrane Q4H ??? ursodiol 300 mg Oral Daily with breakfast ??? ursodiol 600 mg Oral Daily with dinner ??? pantoprazole 40 mg Intravenous BID ??? acyclovir 250 mg/m2/dose (Anton) Intravenous Q12H ??? fluconazole 400 mg Intravenous Q24H ??? loperamide 2 mg Oral BID ??? tacrolimus 0.7 mg Intravenous 2 times per day ? ? jvubmrlvp-kvvqltjiw-cq-mag-sim 5 mL Oral 4 Times Daily AC & HS ??? gabapentin 200 mg Oral TID ??? sodium chloride 0.9 % (flush) 5 mL Intravenous BID ??? vancomycin 125 mg Oral BID ??? flecainide 50 mg Oral BID ??? supersaturated calcium phosphate 30 mL Oral 4 Times Daily ??? [START ON 11/21/2021] sulfamethoxazole-trimethoprim DS 1 tablet Oral Daily ??? filgrastim-sndz 600 mcg Subcutaneous Daily Continuous Infusions: ??? TPN Adult 100 mL/hr at 11/02/21 1801 PRN Meds:.morphine OR morphine OR morphine, magnesium sulfate, magnesium sulfate, potassium chloride, potassium chloride ER, potassium chloride ER, acetaminophen, camphor-menthoL, loperamide, alum-mag hydroxide-simeth, calcium carbonate, sucralfate, furosemide, furosemide, sodium chloride 0.9 % (flush), lidocaine, LORazepam, ondansetron, prochlorperazine, heparin, porcine, sodium chloride 0.9% (flush) Radiology/Studies/Procedures: Reviewed Impression: Luis Manuel Mobley Jr. is a 61 y.o. male with a history of past medical history of gastric esophageal reflux disorder, paroxysmal A. fib, relapsed AML status post FLT3 positive s/p 7+3 induction??chemotherapy (D1 05/08/21)??plus midostaurin with a hospital course complicated by C. difficile infection leadingto toxic megacolon status post colectomy 05/28 currently admitted for MUD allo HSCT. His hospital course was complicated by neutropenic fever early on in the setting of mucositis prompting him to be started on cefepime. More recently he developed a fever and bacterial cultures demonstrate Enterococcusthat is resistant to vancomycin. This likely originated from an enteric source however his tunneled l ine is also a less likely possible etiology. We agree with continuing him on daptomycin 845 mg every24 hour dosing. He is currently day +12 from his stem cell transplant and continues to be neutropenic given the evidence of his mucositis it is reasonable to restart his cefepime as he has ongoing riskfor GNR gut translocation. Additionally we are interested obtaining dedicated abdominal imaging witha CT abdomen with contrast. Given the appearance of the line, if possible we recommend removing and replacing the tunneled catheter. He is on vancomycin prophylaxis for the possibility of him acquiringC. difficile in the terminal ileum however again I would like to point out this is exceedingly rare. There may be a role for discussions regarding if he should continue prophylaxis in the near future. Recommendations: 1. Continue with daptomycin 2. Would restart cefepime given the risk of GNR gut translocation 3. Repeat blood cultures 4. If possible remove tunnel catheter 5. Repeat imaging of abdomen This patient was discussed with ID attending . Recommendations discussed with primary treating team. Thank you very much for this interesting consult and allowing me to participate in this patient's care. The Infectious Disease consult service will continue to follow patient. Do not hesitate to page withany further questions or concerns. Shahana Maciel MD 11/03/2021 10:05 AM [id number] ID ATTENDING I have seen the patient, reviewed the chart as well as the documentation as written by Dr. Maciel. The assessment and plan were formulated in discussion with me and I agree with them as documented. I would add/modify: 61yo man with AML s/p recent allo-SCT now with fever and found to have VRE bacteremia. Likely sourceis the GI tract. Recommend daptomycin dosed at 10mg/kg. He previously had fever on 10/19 at which timecefepime was started and a clear source was not apparent. For now would continue this agent. Imagingof the abdomen/pelvis would be reasonable here for full workup of source. The tunneled line has somesmall erythema at the entry site, though does not appear frankly infected on exam. However it certainly is a possible source and also could be seeded in the setting of bacteremia. As such if it is possible to remove would advocate for such. Lanny Bryant MD Infectious Diseases Consult Note - Kellen Solorio RN - 11/01/2021 6:37 PM EDTSummary: page for large bore access Discussed with primary RN need for additional access and that pt has a mediport that can be accessed. They will request order from . Care Management - Aruna Saunders RN - 10/31/2021 10:12 AM EDT OFFICE OF CARE MANAGEMENT PROGRESS NOTE LOS: Hospital Day 16 days Chart reviewed, care reviewed with primary team and at interdisciplinary rounds. Patient continues to meet inpatient level of care related to: SCT. Functional status prior to admission: Independent Home Environment: Others in the home: significant other, pet(s) (So Chrissy and 2 cats). Current Living Arrangements: home/apartment/condo. Accessibility Concerns: 3 MAXIMUS, mainly one floor. Current Functional Ability: Independent DME used at home: unable to assess DME Needed at Discharge: N/A Patient is insured through: Primary Insurance: [employer] Payor: [facility] / Plan: [facility] PPO / Product Type: *No Product type* / Secondary Insurance: interclick Prescription Coverage: Yes Preferred Pharmacy: [id number] - [place], [place] - [address] [facility] [facility] [address] [facility] [phone] [facility] [place], [place] - [address] [facility] [address] [address] [facility] [id number] [facility] - [place], [place] - [address] [facility] [address] [facility] [address] [facility] [address] [id number] - [place], [place] - [address] [facility] [address] [facility] [address] [id number] - [place], [place] - [address] [facility] [address] [facility] [address] [facility] [address] [facility] [phone] [facility] [id number] - Psychiatric [address] [facility] [address] [facility] [address] [place] [phone] Last Physical Therapy Recommendation: home with home health, home with supervision with to be determined Plan for discharge is: Home w/o Services Outpatient Agency/Support Group Needs: None Agency Referrals & Follow-up Care:N/A Transportation:family or friend will provide Barriers to discharge: Discharge planning Plan going forward: Care Management will continue to follow and assist with discharge planning and coordination of care as indicated. Anticipated Date of Discharge: 11/05/2021 Aruna Saunders RN, BSN, IRVING Calciner Operator Helper Pager [phone] Consult Note - Reyna Teague RN - 10/31/2021 9:58 AM EDT Images from the original note were not included. Inpatient Ostomy Progress Note Surgery/Date: 05/28/21??Procedure(s) (LRB): @ILEOSTOMY OR JEJUNOSTOMY, NON TUBE (WRVU 17.59) (N/A) @EXPLORATORY LAPAROTOMY, REOPENING OF RECENT (WRVU 17.63) (N/A)? Diagnosis: C diff colitis ?? Surgeon: Dr. Lety Walter ?? Pouching System: Removed Coloplast high output (HO) convex pouch #22056 with ring & barrier strips and replaced with same. Although pt's stool amount has significantly decrease, it remains thin so pt opted to continue with the HO pouch. ?? Stoma Appearance: Red, moist, oval, friable especially around the os. ?? Peristomal Skin: Mildly denuded at 3 & 9:00; treated with stoma powder & skin prep. Ostomy Output: Thin liquid stool. Today's visit, teaching and recommendations: Stopped by to see Luis Manuel this morning for a routine pouchchange. He continues to c/o esophageal pain when eating/drinking; he is on several medications in aneffort to manage this. Admitting team adjusted his Imodium dose to once daily; would recommend increa sing to twice daily if pt's stool starts to increase as this is the amount pt takes at home. Pt has several spare Coloplast soft convex drainable pouches (#49016) in his room, but no other pouching supplies. Will plan to tube over additional spare HO pouches, rings, and barrier strips later today. F/u: Thursday for a pouch change. Stoma: JOHNNIE Perera, RN, CWOCN 10/31/2021 Enterostomal Therapy Team Pager #[phone] Consult Note - Reyna Teague RN - 10/28/2021 2:24 PM EDT Images from the original note were not included. Inpatient Ostomy Progress Note Surgery/Date: 05/28/21??Procedure(s) (LRB): @ILEOSTOMY OR JEJUNOSTOMY, NON TUBE (WRVU 17.59) (N/A) @EXPLORATORY LAPAROTOMY, REOPENING OF RECENT (WRVU 17.63) (N/A)?? Diagnosis: C diff colitis Surgeon: Dr. Lety Walter Pouching System: Removed Coloplast high output (HO) convex pouch #14344 with ring & barrier strips and replaced with same. Stoma Appearance: Red, moist, oval, friable. Staff & pt noted increased bleeding from the stoma mucosa during the pouch change on Thursday. Upon examination, I noted a small ulceration on the top of the stoma near the os at ~10:00; I used silver nitrate to cauterize this and the bleeding stopped. I also noted some dark red areas on the underside of the stoma; not currently bleeding, but appeared very friable. Peristomal Skin: Mildly denuded at 3 & 9:00; treated with stoma powder & skin prep. Ostomy Output: Thin liquid stool. Today's visit, teaching and recommendations: Stopped by to see Luis Manuel for a pouch change this afternoon; pt's Rajwinder Paula was present during my visit. Pt and Chai were both concerned about the increased bleeding; I told them that it could be due to a variety of things including pt's increased liquid stool and manipulation of the pouch during emptying this . Told them that I would not be overly concerned unless they noted visible blood in pt's stool, but that we would continue to monitor. Pt hasnot been getting his Imodium since 10/23; it was scheduled PRN and pt did not realize that he had to ask for it as he normally takes it BID at home. As pt's C diff screen came back negative, I asked Dr. Zaid Marin if we could schedule the Imodium. Pt has 1 spare HO pouch, 1 ring, and 1 set of barrier stripsin his room. F/u: for a pouch change. Stoma: PHIL PereraN, RN, CWOCN 10/28/2021 Enterostomal Therapy Team Pager #[phone] Care Management - Aruna Saunders RN - 10/28/2021 10:07 AM EDT OFFICE OF CARE MANAGEMENT PROGRESS NOTE LOS: Hospital Day 13 days Chart reviewed, care reviewed with primary team and at interdisciplinary rounds. Patient continues to meet inpatient level of care related to: SCT. Functional status prior to admission: Independent Home Environment: Others in the home: significant other, pet(s) (So Chrissy and 2 cats). Current Living Arrangements: home/apartment/condo. Accessibility Concerns: 3 MAXIMUS, mainly one floor. Current Functional Ability: Independent DME used at home: unable to assess DME Needed at Discharge: N/A Patient is insured through: Primary Insurance: [employer] Payor: [employer] / Plan: [facility] PPO / Product Type: *No Product type* / Secondary Insurance: interclick Prescription Coverage: Yes Preferred Pharmacy: [facility] #[id number] - [place], [place] - [address] [place] [address] AT [address] OF [facility] [address] [phone] [facility] - [place] - [facility] [address] [facility] - [address] [facility] [address] [facility] [address] [id number] - [place], [place] - [address] [facility] [address] [facility] [address] [facility][id number] - [place], [place] - [address] [facility] [address] [facility] [address] [phone] [facility] [id number] - [place], [place] - [address] [facility] [address] [facility] [address] [place], [place] [id number] Plan for discharge is: Home w/o Services Outpatient Agency/Support Group Needs: None Agency Referrals & Follow-up Care:N/A Transportation: family or friend will provide Barriers to discharge: Discharge planning Plan going forward: Care Management will continue to follow and assist with discharge planning and coordination of care as indicated. Anticipated Date of Discharge: 11/05/2021 Aruna Saunders RN, BSN, IRVING Calciner Operator Helper Pager [phone] Care Management - Aruna Saunders RN - 10/24/2021 11:57 AM EST OFFICE OF CARE MANAGEMENT PROGRESS NOTE LOS: Hospital Day 9 days Chart reviewed, care reviewed with primary team and at interdisciplinary rounds. Patient continues to meet inpatient level of care related to: SCT. Functional status prior to admission: Independent Home Environment: Others in the home: significant other, pet(s) (So Chrissy and 2 cats). Current Living Arrangements: home/apartment/condo. Accessibility Concerns: 3 MAXIMUS, mainly one floor. Current Functional Ability: Independent DME used at home: unable to assess DME Needed at Discharge: N/A Patient is insured through: Primary Insurance: [employer] Payor: [employer] / Plan: [facility] PPO / Product Type: *No Product type* / Secondary Insurance: [employer] Prescription Coverage: Yes Preferred Pharmacy: [facility] #[id number] - [place], [place] - [address] [place] [address] AT [address] [facility] & [address] [phone] [facility] - [place] - [facility] [address] [facility] - [place], [place] - [address] [facility] [address] [facility] [address] [facility] [address] [facility] [id number] - [place], [place] [address] [facility] [address] [facility] [address] [facility] [address] [facility][id number] - [place], [place] - [address] [place] [address] AT [address] OF [facility] & [facility] [address] [facility] [phone] [id number] - [place], [place] - [address] [facility] [address] [facility] [address] [facility] [address] Plan for discharge is: Home w/o Services Outpatient Agency/Support Group Needs: None Agency Referrals & Follow-up Care:N/A Transportation: family or friend will provide Barriers to discharge: Discharge planning Plan going forward: Care Management will continue to follow and assist with discharge planning and coordination of care as indicated. 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 Diagnosis:??C diff colitis ?? Surgeon:??Dr. Lety Walter Appliance: Removed Coloplast high output (HO) convex pouch #26227 with ring & barrier strips & replaced with same. Changed: [x} Yes Stoma: Red, moist, oval. Peristomal Skin: Mild erythema; treated with stoma powder & skin prep. Teaching: Pt very familiar with ostomy pouch change. He does it with his S.O. at home and needs assistance with some of the steps. He continues to empty the pouch independently. Family Present: [x} No Family Member Present:0 Psychosocial Acceptance: Pt well adjusted to life with an ostomy. Special Notes: Pt has 1 spare HO convex pouch, 1 spare drainable convex pouch, and 1 spare ring. Will plan to tube additional supplies to 1W later today. Will follow on Thursday. JOHNNIE Perera, RN, CWOCN 10/24/2021 Enterostomal Therapy Team Pager #[phone] Consult Note - Reyna Teague RN - 10/22/2021 9:20 AM EST oil well fishing tool technician consult note - pt wearing a nicely intact high output (HO) pouch with ring & barrier strips that was placed yesterday. Stool starting to thicken up, but could still be drained via the HO spout. Stoma appears red & viable through the pouch. Will plan to return on for another pouch change; please page the ostomy team if any issues arise before that time. JOHNNIE Perera, RN, CWOCN 10/22/2021 Enterostomal Therapy Team Pager #[phone] Consult Note - Reyna Teague RN - 10/21/2021 1:00 PM EST oil well fishing tool technician consult note - stopped by to see Luis Manuel this afternoon to check on his pouch. Pt's S.O., Chai, was in the room during my visit. Luis Manuel reports that he had frequent pouch changes over the weekenddue to pouch leakage. He was wearing a Coloplast #[id number] with paste when I arrived and upon examination, this appeared like it was about to leak. I showed Luis Manuel the convex high output (HO) pouch that I dropped off last week and told him I recommended that we use this pouch as he is technically high output at this time and his stool has been quite liquid. Pt was agreeable to this. I applied the HO pouch(Coloplast #52350) with a ring and barrier strips. I showed pt a cha bag and put this at the end of his bed; told him he could hook the HO pouch up to this overnight so he didn't have to worry about the pouch filling up too much. Pt's stoma is red & viable; peristomal skin is erythematous and I treated this with stoma powder & skin prep. Pt has several spare Coloplast #[id number] drainable pouches (his home supply) in his room as well as one spare HO pouch. He also has spare rings and spare barrier strips. Will follow. JOHNNIE Perera, RN, CWOCN 10/21/2021 Enterostomal Therapy Team Pager #[phone] Care Management - Aruna Saunders RN - 10/21/2021 10:09 AM EST OFFICE OF CARE MANAGEMENT PROGRESS NOTE LOS: Hospital Day 6 days Chart reviewed, care reviewed with primary team and at interdisciplinary rounds. Patient continues to meet inpatient level of care related to: SCT. Functional status prior to admission: Independent Home Environment: Others in the home: significant other, pet(s) (So Chrissy and 2 cats). Current Living Arrangements: home/apartment/condo. Accessibility Concerns: 3 MAXIMUS, mainly one floor. Current Functional Ability: Independent DME used at home: unable to assess DME Needed at Discharge: none anticipated Patient is insured through: Primary Insurance: [employer] Payor: [employer] / Plan: [facility] PPO / Product Type: *No Product type* / Secondary Insurance: [employer] Prescription Coverage: Yes Preferred Pharmacy: [facility] #[id number] - [place], [place] - [address] [place] [address] [address] [facility] [address] [facility] [phone] [facility] - [place] [facility] [address] [facility] - [address] [facility] [address] [facility] [address] [facility] [id number] - [place], [place] - [address] [facility] [address] [facility] [address] [facility][id number] - [place], [place] - [address] [place] [address] [address] [facility] [address] [phone] [id number] - [place], [place] - [address] [facility] [address] [facility] [address] [facility] [address] Plan for discharge is: Home w/o Services Outpatient Agency/Support Group Needs: None Agency Referrals & Follow-up Care:N/A Transportation: family or friend will provide Barriers to discharge: Discharge planning Plan going forward: Care Management will continue to follow and assist with discharge planning and coordination of care as indicated. Anticipated Date of Discharge: 11/05/2021 Aruna Saunders RN, BSN, IRVING Calciner Operator Helper Pager [phone] Consult Note - Reyna Teague RN - 10/17/2021 10:10 AM EST oil well fishing tool technician consult note - stopped by to see pt this morning to assist with his pouch change as he usually does this with his S.O. We used his home supplies (Coloplast #96761, ring, and barrier strips) as I did not think he would be able to empty his stool via the spout of the high output (HO) pouch given it's current consistency. Pt assisted with the pouch change & only needed help cutting out theopening in the wafer & centering it around his stoma. Discussed that if he needed to transition to the HO pouch over the weekend, he could talk staff through the steps he needed assistance with. Made him a new template & left this with the supplies he brought from home. Stoma is red, viable, and oval. Small green supply bag in room has 2 spare HO convex pouches as well as spare rings and barrier strips. Will f/u with pt next week. JOHNNIE Perera, RN, CWOCN 10/17/2021 Enterostomal Therapy Team Pager #[phone] Initial Assessments - Aruna Saunders RN - 10/16/2021 12:34 PM EST Office of Care Management Initial Assessment Aruna Saunders RN reviewed record and discussed patient with Care Team. Source of Information: Team, bedside nurse, medical record, and Chart Review Reason for Hospitalization: Bone marrow transplant Covid Vaccination Status: (unable to assess) Last COVID test: Lab Results Component Value Date [id number] Not Detected 10/15/2021 Past medical History: Past Medical History: Diagnosis Date ??? AML (acute myeloblastic leukemia) 04/2021 ??? BPH (benign prostatic hyperplasia) ??? GERD (gastroesophageal reflux disease) ??? Paroxysmal atrial fibrillation ??? 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 Current Living Arrangements: home/apartment/condo. Accessibility Concerns:3 MAXIMUS, mainly one floor. Current DME: unable to assess Home Address listed as: [address] [place] [address] Social & Family Supports: All names listed below confirmed with patient as current and correct Extended Emergency Contact Information Primary Emergency Contact: CHRISSY ENCINAS Address: [address] [place], [place] [address] [place] Relation: Life Partner Secondary Emergency Contact: LETY LOPEZ Address: [address] [place], [place] [id number] [place] [address] of [place] Relation: Friend Mother: Mary Springer Mobile Current Care Provided by: self Provides Primary Care For: no one Caregiver if needed: significant other, friend(s) Quality of Family relationships: helpful, involved, supportive Community Resources being provided currently: none Behavioral Health History: Denies Substance Use/Abuse listed: Social History Tobacco Use [...] Specific Information: n/a Health/Prescription Coverage: Primary Insurance: [facility] Payor: [facility] / Plan: [facility] PPO / Product Type: *No Product type* / Secondary Insurance: N/A Prescription Coverage: Yes Preferred Pharmacy: [id number] - [place], [place] - [address] AT SEC OF [facility] & [address] [phone] [facility] - [place] [phone] [facility] - [address] [facility] [address] [facility] [id number] [id number] - [place], [place] - [address] [facility] [address] [facility] [address] [id number] - [place], [place] - [address] [facility] [address] [facility] & [address] [address] [id number] - [place], [place] - [address] [facility] [address] [facility] [address] [facility] [address] Status: Patient is a : No Primary Care Provider: LEISA Munguia [phone] Patient/Caregiver Goals of Treatment: return home Potential Needs for Transition of Care: none Agency Referrals: Not Applicable Transportation: no concerns Transportation Anticipated: family or friend will provide Concerns to be Addressed: no discharge needs identified Assessment: Patient is admitted to hematology/oncology service for SCT. Plan: No anticipated needs for discharge A member of the Care Management team will continue to monitor progress, follow for continuity of care and assist with transition of care planning. Aruna Saunders RN, BSN, IRVING Calciner Operator Helper Pager [phone] Consult Note - Reyna Teague RN - 10/16/2021 9:58 AM EST oil well fishing tool technician consult note - Ostomy team consulted to provide pt with high output (HO) pouching suppliesas it's anticipated he will have HO from day 3-5 of his transplant. Pt is s/p ex lap with subtotal colectomy and end ileostomy on 05/28/21 secondary to C. diff colitis and is well known to the Ostomy team. Pt is currently wearing a nicely intact Coloplast cut-to-fit soft convex pouch #[id number] with ring & barrier strips. I dropped off 2 of these pouches, 2 [employer]oplast HO cut-to-fit soft convex pouches#[id number], 4 spare rings, & 8 spare barrier strips for pt. He and his S.O. normally do the pouch changes together so he requested assistance with his pouch change tomorrow. Will plan to see him at that time. JOHNNIE Perera, RN, CWOCN 10/16/2021 Enterostomal Therapy Team Pager #[phone] documented in this encounter Plan of Treatment Upcoming Encounters Date Type Specialty Care Team Description 02/18/2022 Infusion Hematology and Oncology 02/21/2022 Infusion Hematology and Oncology 02/24/2022 Appointment Hematology and Oncology 02/24/2022 Office Visit Hematology and Oncology Parviz Modi MD [facility] DR HEMATOLOGY/[place] [address] Miroslava Pelayo APRN [facility] DR HEMATOLOGY/[place] [address] 02/24/2022 Office Visit Wound Care 02/24/2022 Appointment Hematology and Oncology 02/26/2022 Office Visit Neurology Leni Bustamante MD [facility] DR NEUROLOGY DEPT. [place], [place] [address] (Wo rk) Pending Results Name Type Priority Associated Diagnoses Date/Ti me Transfuse RBC Blood Bank Routine 11/01/2021 10: 21 PM EDT Transfuse 1 unit Blood Bank Routine 11/02/2021 12:21 AM platelets, apheresis EDT Transfuse RBC Blood Bank Routine 11/01/2021 10: 20 PM EDT Transfuse 1 unit Blood Bank Routine 11/02/2021 12:15 AM platelets, apheresis EDT Transfuse 1 unit Blood Bank Routine 11/11/2021 10:55 AM platelets, apheresis EDT Scheduled Referrals Name Type Priority Associated Diagnoses Order S chedule Referral to Outpatient Referral Routine Acute myeloid leukemi a Ordered: Physical Therapy not having achieved 08/2021 remission Referral to Outpatient Referral Routine Cerebrovascular Order ed: Neurology accident (CVA), 11/15/2021 unspecified mechanism documented as of this encounter Procedures Procedure Name Priority Date/Time Associated Diagnosis Comme nts TRANSFUSE RED BLOOD Routine 11/18/2021 10:12 CELLS AM EDT PREPARE RBC Routine 11/18/2021 9:00 [...] Acute myeloid AM EDT leukemia in remission HC PHOSPHORUS, SERUM Routine 11/18/2021 4:00 Acute [...] are in remission the results section. HC PHOSPHORUS, SERUM Routine 11/17/2021 3:47 Resu lts for this PM EDT procedure are i n the results section. BASIC METABOLIC PANEL Routine 11/17/2021 3:47 Res ults for this (NON-FASTING) PM EDT procedure are in the results section. HC UREA NITROGEN, Routine 11/17/2021 8:57 Results for this URINE 24 HR AM EDT procedure are i n the results section. HC SODIUM, URINE Routine 11/17/2021 8:57 Results for this AM EDT procedure are i n the results section. HC CREATININE - NON Routine 11/17/2021 8:57 Resul ts for this BLOOD AM EDT procedure are i n the results section. DIFFERENTIAL, MANUAL Routine 11/17/2021 4:00 Resu lts for this AM EDT procedure are i n the results section. 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 HC CBC,PLT & AUTO DIFF Routine 11/17/2021 4:00 Acute myeloid AM EDT leukemia in remission HC PHOSPHORUS, SERUM Routine 11/17/2021 4:00 Acute [...] procedure are in remission the results section. DIFFERENTIAL, MANUAL Routine 11/16/2021 3:20 Resu lts for this AM EDT procedure are i n the results section. 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 HC CBC,PLT & AUTO DIFF Routine 11/16/2021 3:20 Acute myeloid AM EDT leukemia in remission HC PHOSPHORUS, SERUM Routine 11/16/2021 3:20 Acute myeloid Res ults for this AM EDT leukemia in procedure are i n remission the results section. 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 BASIC METABOLIC PANEL Routine 11/16/2021 3:20 Acute myeloid Re sults for this (NON-FASTING) AM EDT leukemia in procedure are in remission the results section. TYPE AND SCREEN Routine 11/15/2021 3:45 Results f or this VALIDITY AM EDT procedure are i [...] Acute myeloid AM EDT leukemia in remission HC PHOSPHORUS, SERUM Routine 11/15/2021 3:45 Acute [...] are in remission the results section. HC FK-506 (TACROLIMUS) Routine 11/14/2021 8:46 Acute myeloid R esults for this AM EDT leukemia in procedure are i n remission the results section. SCAN, PERIPHERAL BLOOD Routine 11/14/2021 4:20 Re sults for this AM EDT procedure are i n the results section. HEMOGRAM Routine 11/14/2021 4:20 Acute myeloid Results for this AM EDT leukemia in procedure are i n remission the results section. DIFFERENTIAL, Routine 11/14/2021 4:20 Acute myeloid Results fo r this AUTOMATED AM EDT leukemia in procedure are i n remission the results section. HC CBC,PLT & AUTO DIFF Routine 11/14/2021 4:20 Acute myeloid AM EDT leukemia in remission HC PHOSPHORUS, SERUM Routine 11/14/2021 4:20 Acute myeloid Res ults for this AM EDT leukemia in procedure are i n remission the results section. HC MAGNESIUM, SERUM Routine 11/14/2021 4:20 Acute myeloid Resu lts for this AM EDT leukemia in procedure are i n remission the results section. HEPATIC FUNCTION PANEL Routine 11/14/2021 4:20 Acute myeloid R esults for this AM EDT leukemia in procedure are i n remission the results section. BASIC METABOLIC PANEL Routine 11/14/2021 4:20 Acute myeloid Re sults for this (NON-FASTING) AM EDT leukemia in procedure are in remission the results section. DIFFERENTIAL, MANUAL Routine 11/13/2021 3:25 Resu lts for this AM EDT procedure are i n the results section. HEMOGRAM Routine 11/13/2021 3:25 Acute myeloid Results for this AM EDT leukemia in procedure are i n remission the results section. HC CBC,PLT & AUTO DIFF Routine 11/13/2021 3:25 Acute myeloid AM EDT leukemia in remission HC PHOSPHORUS, SERUM Routine 11/13/2021 3:25 Acute myeloid Res ults for this AM EDT leukemia in procedure are i n remission the results section. HC MAGNESIUM, SERUM Routine 11/13/2021 3:25 Acute myeloid Resu lts for this AM EDT leukemia in procedure are i n remission the results section. BASIC METABOLIC PANEL Routine 11/13/2021 3:25 Acute myeloid Re sults for this (NON-FASTING) AM EDT leukemia in procedure are in remission the results section. SCAN, PERIPHERAL BLOOD Routine 11/12/2021 3:50 Re sults for this AM EDT procedure are i n the results section. HEMOGRAM Routine 11/12/2021 3:50 Acute myeloid Results for this AM EDT leukemia in procedure are i n remission the results section. DIFFERENTIAL, Routine 11/12/2021 3:50 Acute myeloid Results fo r this AUTOMATED AM EDT leukemia in procedure are i n remission the results section. HC CBC,PLT & AUTO DIFF Routine 11/12/2021 3:50 Acute myeloid AM EDT leukemia in remission HC PHOSPHORUS, SERUM Routine 11/12/2021 3:50 Acute myeloid Res ults for this AM EDT leukemia in procedure are i n remission the results section. HC MAGNESIUM, SERUM Routine 11/12/2021 3:50 Acute myeloid Resu lts for this AM EDT leukemia in procedure are i n remission the results section. BASIC METABOLIC PANEL Routine 11/12/2021 3:50 Acute myeloid Re sults for this (NON-FASTING) AM EDT leukemia in procedure are in remission the results section. ECHOCARDIOGRAM Routine 11/11/2021 3:48 Paroxysmal atrial Resul ts for this COMPLETE PM EDT fibrillation procedure are i n the results section. HC PLATELET COUNT Routine 11/11/2021 2:00 Acute myeloid Result s for this PM EDT leukemia in procedure are i n remission the results section. PREPARE PLATELETS, Routine 11/11/2021 8:50 Result s for this APHERESIS AM EDT procedure are i n the results section. HC FK-506 (TACROLIMUS) Routine 11/11/2021 8:48 Acute myeloid R esults for this AM EDT leukemia in procedure are i n remission the results section. TRANSFUSE RED BLOOD Routine 11/11/2021 6:03 CELLS AM EDT PREPARE RBC Routine 11/11/2021 5:55 Results for this AM EDT procedure are i n the results section. TYPE AND SCREEN Routine 11/11/2021 3:50 Results f or this VALIDITY AM EDT procedure are i n the results section. ABORH RECHECK STATUS Routine 11/11/2021 3:50 Resu lts for this AM EDT procedure are i n the results section. ANTIBODY SCREEN MANUAL Routine 11/11/2021 3:50 Re sults for this AM EDT procedure are i n the results section. ABORH TYPE MANUAL Routine 11/11/2021 3:50 Results for this AM EDT procedure are i n the results section. DIFFERENTIAL, MANUAL Routine 11/11/2021 3:50 Resu lts for this AM EDT procedure are i n the results section. HEMOGRAM Routine 11/11/2021 3:50 Acute myeloid Results for this AM EDT leukemia in procedure are i n remission the results section. HC CBC,PLT & AUTO DIFF Routine 11/11/2021 3:50 Acute myeloid AM EDT leukemia in remission HC PHOSPHORUS, SERUM Routine 11/11/2021 3:50 Acute myeloid Res ults for this AM EDT leukemia in procedure are i n remission the results section. HC MAGNESIUM, SERUM Routine 11/11/2021 3:50 Acute myeloid Resu lts for this AM EDT leukemia in procedure are i n remission the results section. HC LDL CHOLESTEROL, Routine 11/11/2021 3:50 Resul ts for this DIRECT AM EDT procedure are i n the results section. HC CHOLESTEROL Routine 11/11/2021 3:50 Results fo r this AM EDT procedure are i n the results section. HC HEMOGLOBIN A1C Routine 11/11/2021 3:50 Results for this AM EDT procedure are i n the results section. HC CREATINE Routine 11/11/2021 3:50 Results for this PHOSPHOKINASE, SERUM AM EDT procedu re are in the results section. 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 URINALYSIS MICROSCOPIC Routine 11/10/2021 9:58 Re sults for this EXAM PM EDT procedure are i n the results section. URINALYSIS WITH REFLEX Routine 11/10/2021 9:58 Re sults for this CULTURE PM EDT procedure are i n the results section. MRI BRAIN WWO CONTRAST STAT 11/10/2021 4:21 Re sults for this (GENERIC) PM EDT procedure are i n the results section. HC VENIPUNCTURE STAT 11/10/2021 2:21 Results f or this PM EDT procedure are i n the results section. HC BLOOD CULTURE- STAT 11/10/2021 1:14 Results for this PM EDT procedure are i n the results section. 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 TRANSFUSE 1 UNIT Routine 11/10/2021 10:45 PLATELET PHERESIS AM EDT CT HEAD WO & STAT 11/10/2021 10:34 Results for this MULTIPHASE CTA AM EDT procedure are in HEAD/NECK W (STROKE the resu lts PROTOCOL) section. POCT GLUCOSE Routine 11/10/2021 10:09 Results for this AM EDT procedure are i n the results section. PREPARE PLATELETS, Routine 11/10/2021 10:05 Resul ts for this APHERESIS AM EDT procedure are i n the results section. SCAN, PERIPHERAL BLOOD Routine 11/10/2021 3:35 Re sults for this AM EDT procedure are i n the results section. HEMOGRAM Routine 11/10/2021 3:35 Acute myeloid Results for this AM EDT leukemia in procedure are i n remission the results section. DIFFERENTIAL, Routine 11/10/2021 3:35 Acute myeloid Results fo r this AUTOMATED AM EDT leukemia in procedure are i n remission the results section. HC CBC,PLT & AUTO DIFF Routine 11/10/2021 3:35 Acute myeloid AM EDT leukemia in remission HC PHOSPHORUS, SERUM Routine 11/10/2021 3:35 Acute myeloid Res ults for this AM EDT leukemia in procedure are i n remission the results section. HC MAGNESIUM, SERUM Routine 11/10/2021 3:35 Acute myeloid Resu lts for this AM EDT leukemia in procedure are i n remission the results section. 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 HC PLATELET COUNT Routine 11/09/2021 6:45 Acute myeloid Result s for this PM EDT leukemia in procedure are i n remission the results section. TRANSFUSE 1 UNIT Routine 11/09/2021 5:00 PLATELET PHERESIS PM EDT HC C. DIFF QUIK CHEK Routine 11/09/2021 2:40 Resu lts for this ANTIGEN PM EDT procedure are i n the results section. PREPARE PLATELETS, Routine 11/09/2021 12:55 Resul ts for this APHERESIS PM EDT procedure are i n the results section. TRANSFUSE RED BLOOD Routine 11/09/2021 5:15 CELLS AM EDT HC VENIPUNCTURE STAT 11/09/2021 4:28 Results f or this AM EDT procedure are i n the results section. HC VENIPUNCTURE STAT 11/09/2021 4:10 Results f or this AM EDT procedure are i n the results section. PREPARE RBC Routine 11/09/2021 3:45 Results for this AM EDT procedure are i n the results section. HEMOGRAM Routine 11/09/2021 2:56 Acute myeloid Results for this AM EDT leukemia in procedure are i n remission the results section. HC CBC,PLT & AUTO DIFF Routine 11/09/2021 2:56 Acute myeloid AM EDT leukemia in remission HC PHOSPHORUS, SERUM Routine 11/09/2021 2:56 Acute myeloid Res ults for this AM EDT leukemia in procedure are i n remission the results section. HC MAGNESIUM, SERUM Routine 11/09/2021 2:56 Acute myeloid Resu lts for this AM EDT leukemia in procedure are i n remission the results section. 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 HC PLATELET COUNT Routine 11/08/2021 2:40 Acute myeloid Result s for this PM EDT leukemia in procedure are i n remission the results section. TRANSFUSE 1 UNIT Routine 11/08/2021 1:05 PLATELET PHERESIS PM EDT PREPARE PLATELETS, Routine 11/08/2021 8:00 Result s for this APHERESIS AM EDT procedure are i n the results section. HEMOGRAM Routine 11/08/2021 1:25 Acute myeloid Results for this AM EDT leukemia in procedure are i n remission the results section. HC CBC,PLT & AUTO DIFF Routine 11/08/2021 1:25 Acute myeloid AM EDT leukemia in remission HC PHOSPHORUS, SERUM Routine 11/08/2021 1:25 Acute myeloid Res ults for this AM EDT leukemia in procedure are i n remission the results section. HC MAGNESIUM, SERUM Routine 11/08/2021 1:25 Acute myeloid Resu lts for this AM EDT leukemia in procedure are i n remission the results section. 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 TYPE AND SCREEN Routine 11/07/2021 3:40 Results f or this VALIDITY AM EDT procedure are i n the results section. ABORH RECHECK STATUS Routine 11/07/2021 3:40 Resu lts for this AM EDT procedure are i n the results section. ANTIBODY SCREEN MANUAL Routine 11/07/2021 3:40 Re sults for this AM EDT procedure are i n the results section. ABORH TYPE MANUAL Routine 11/07/2021 3:40 Results for this AM EDT procedure are i n the results section. HEMOGRAM Routine 11/07/2021 3:40 Acute myeloid Results for this AM EDT leukemia in procedure are i n remission the results section. HC CBC,PLT & AUTO DIFF Routine 11/07/2021 3:40 Acute myeloid AM EDT leukemia in remission HC PHOSPHORUS, SERUM Routine 11/07/2021 3:40 Acute myeloid Res ults for this AM EDT leukemia in procedure are i n remission the results section. HC MAGNESIUM, SERUM Routine 11/07/2021 3:40 Acute myeloid Resu lts for this AM EDT leukemia in procedure are i n remission the results section. HEPATIC FUNCTION PANEL Routine 11/07/2021 3:40 Acute myeloid R esults for this AM EDT leukemia in procedure are i n remission the results section. 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 MISCELLANEOUS LAB Routine 11/06/2021 4:05 Results for this REQUEST PM EDT procedure are i n the results section. SCAN, PERIPHERAL BLOOD Routine 11/06/2021 4:05 Re sults for this PM EDT procedure are i n the results section. HC PLATELET COUNT Routine 11/06/2021 4:05 Acute myeloid Result s for this PM EDT leukemia in procedure are i n remission the results section. TRANSFUSE 1 UNIT Routine 11/06/2021 1:15 PLATELET PHERESIS PM EDT HC BLOOD CULTURE- STAT 11/06/2021 12:24 Result s for this PM EDT procedure are i n the results section. ECHOCARDIOGRAM LMTD Routine 11/06/2021 12:19 Bacteremia Resu lts for this W/O CON W LMTD SPEC PM EDT procedur e are in DOPP, COLOR DOPP the results section. HC BLOOD CULTURE- STAT 11/06/2021 12:18 Result s for this PM EDT procedure are i n the results section. PREPARE PLATELETS, Routine 11/06/2021 11:35 Resul ts for this APHERESIS AM EDT procedure are i n the results section. HEMOGRAM Routine 11/06/2021 3:15 Acute myeloid Results for this AM EDT leukemia in procedure are i n remission the results section. HC CBC,PLT & AUTO DIFF Routine 11/06/2021 3:15 Acute myeloid AM EDT leukemia in remission HC PHOSPHORUS, SERUM Routine 11/06/2021 3:15 Acute myeloid Res ults for this AM EDT leukemia in procedure are i n remission the results section. HC MAGNESIUM, SERUM Routine 11/06/2021 3:15 Acute myeloid Resu lts for this AM EDT leukemia in procedure are i n remission the results section. HC IGG, SERUM Routine 11/06/2021 3:15 Acute myeloid Results fo r this AM EDT leukemia in procedure are i n remission the results section. 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 HC PLATELET COUNT Routine 11/05/2021 5:10 Acute myeloid Result s for this PM EDT leukemia in procedure are i n remission the results section. IR LINE OR TUBE Routine 11/05/2021 4:32 Results f or this REMOVAL IN RECOVERY PM EDT procedur e are in ROOM the results section. TRANSFUSE 1 UNIT Routine 11/05/2021 3:06 PLATELET PHERESIS PM EDT PREPARE PLATELETS, Routine 11/05/2021 12:50 Resul ts for this APHERESIS PM EDT procedure are i n the results section. TRANSFUSE RED BLOOD Routine 11/05/2021 11:14 CELLS AM EDT HC VENIPUNCTURE STAT 11/05/2021 9:35 Results f or this AM EDT procedure are i n the results section. HC VENIPUNCTURE STAT 11/05/2021 9:28 Results f or this AM EDT procedure are i n the results section. PREPARE RBC Routine 11/05/2021 7:40 Results for this AM EDT procedure are i n the results section. SCAN, PERIPHERAL BLOOD Routine 11/05/2021 3:05 Re sults for this AM EDT procedure are i n the results section. HEMOGRAM Routine 11/05/2021 3:05 Acute myeloid Results for this AM EDT leukemia in procedure are i n remission the results section. HC CBC,PLT & AUTO DIFF Routine 11/05/2021 3:05 Acute myeloid AM EDT leukemia in remission HC PHOSPHORUS, SERUM Routine 11/05/2021 3:05 Acute myeloid Res ults for this AM EDT leukemia in procedure are i n remission the results section. HC MAGNESIUM, SERUM Routine 11/05/2021 3:05 Acute myeloid Resu lts for this AM EDT leukemia in procedure are i n remission the results section. 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 PREPARE PLATELETS, Routine 11/04/2021 4:30 Result s for this APHERESIS PM EDT procedure are i n the results section. PLACE PICC LINE: Routine 11/04/2021 4:22 Results for this CONTACT VASCULAR PM EDT procedure a re in ACCESS the results section. XR PICC PLACEMENT OVER Routine 11/04/2021 4:06 Re sults for this 5 YEARS (IV TEAM) PM EDT procedure are in the results section. HC PLATELET COUNT Routine 11/04/2021 2:50 Acute myeloid Result s for this PM EDT leukemia in procedure are i n remission the results section. TRANSFUSE 1 UNIT Routine 11/04/2021 1:26 PLATELET PHERESIS PM EDT HC FK-506 (TACROLIMUS) Routine 11/04/2021 12:00 Acute myeloid Results for this PM EDT leukemia in procedure are i n remission the results section. PREPARE PLATELETS, Routine 11/04/2021 11:30 Resul ts for this APHERESIS AM EDT procedure are i n the results section. XR CHEST ONE VIEW STAT 11/04/2021 8:50 Results for this AM EDT procedure are i n the results section. TRANSFUSE RED BLOOD Routine 11/04/2021 5:11 CELLS AM EDT PREPARE RBC Routine 11/04/2021 4:10 Results for this AM EDT procedure are i n the results section. HEMOGRAM Routine 11/04/2021 3:40 Acute myeloid Results for this AM EDT leukemia in procedure are i n remission the results section. HC CBC,PLT & AUTO DIFF Routine 11/04/2021 3:40 Acute myeloid AM EDT leukemia in remission HC PHOSPHORUS, SERUM Routine 11/04/2021 3:40 Acute myeloid Res ults for this AM EDT leukemia in procedure are i n remission the results section. HC MAGNESIUM, SERUM Routine 11/04/2021 3:40 Acute myeloid Resu lts for this AM EDT leukemia in procedure are i n remission the results section. BASIC METABOLIC PANEL Routine 11/04/2021 3:40 Acute myeloid Re sults for this (NON-FASTING) AM EDT leukemia in procedure are in remission the results section. CT ABDOMEN AND PELVIS Routine 11/03/2021 7:49 Res ults for this W CONTRAST PM EDT procedure are i n the results section. HC PLATELET COUNT Routine 11/03/2021 1:35 Acute myeloid Result s for this PM EDT leukemia in procedure are i n remission the results section. TRANSFUSE 1 UNIT Routine 11/03/2021 6:37 PLATELET PHERESIS AM EDT PREPARE PLATELETS, Routine 11/03/2021 5:40 Result s for this APHERESIS AM EDT procedure are i n the results section. TYPE AND SCREEN Routine 11/03/2021 4:27 Results f or this VALIDITY AM EDT procedure are i n the results section. ABORH RECHECK STATUS Routine 11/03/2021 4:27 Resu lts for this AM EDT procedure are i n the results section. ANTIBODY SCREEN MANUAL Routine 11/03/2021 4:27 Re sults for this AM EDT procedure are i n the results section. ABORH TYPE MANUAL Routine 11/03/2021 4:27 Results for this AM EDT procedure are i n the results section. HEMOGRAM Routine 11/03/2021 4:15 Acute myeloid Results for this AM EDT leukemia in procedure are i n remission the results section. HC CBC,PLT & AUTO DIFF Routine 11/03/2021 4:15 Acute myeloid AM EDT leukemia in remission HC PHOSPHORUS, SERUM Routine 11/03/2021 4:15 Acute myeloid Res ults for this AM EDT leukemia in procedure are i n remission the results section. HC MAGNESIUM, SERUM Routine 11/03/2021 4:15 Acute myeloid Resu lts for this AM EDT leukemia in procedure are i n remission the results section. HC CREATINE Routine 11/03/2021 4:15 Results for this PHOSPHOKINASE, SERUM AM EDT procedu re are in the results section. 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 HC VENIPUNCTURE STAT 11/03/2021 4:08 Results f or this AM EDT procedure are i n the results section. HC BLOOD CULTURE- STAT 11/03/2021 3:56 Results for this AM EDT procedure are i n the results section. HC BLOOD CULTURE- STAT 11/02/2021 10:18 Result s for this AM EDT procedure are i n the results section. HC VENIPUNCTURE STAT 11/02/2021 10:18 Results for this AM EDT procedure are i n the results section. XR CHEST ONE VIEW Routine 11/02/2021 9:36 Results for this AM EDT procedure are i n the results section. SCAN, PERIPHERAL BLOOD Routine 11/02/2021 3:50 Re sults for this AM EDT procedure are i n the results section. HEMOGRAM Routine 11/02/2021 3:50 Acute myeloid Results for this AM EDT leukemia in procedure are i n remission the results section. HC CBC,PLT & AUTO DIFF Routine 11/02/2021 3:50 Acute myeloid AM EDT leukemia in remission HC PHOSPHORUS, SERUM Routine 11/02/2021 3:50 Acute myeloid Res ults for this AM EDT leukemia in procedure are i n remission the results section. HC MAGNESIUM, SERUM Routine 11/02/2021 3:50 Acute myeloid Resu lts for this AM EDT leukemia in procedure are i n remission the results section. HEPATIC FUNCTION PANEL Routine 11/02/2021 3:50 Acute myeloid R esults for this AM EDT leukemia in procedure are i n remission the results section. BASIC METABOLIC PANEL Routine 11/02/2021 3:50 Acute myeloid Re sults for this (NON-FASTING) AM EDT leukemia in procedure are in remission the results section. TRANSFUSE 1 UNIT Routine 11/02/2021 12:15 PLATELET PHERESIS AM EDT TRANSFUSE RED BLOOD Routine 11/01/2021 10:20 CELLS PM EDT PREPARE PLATELETS, Routine 11/01/2021 8:35 Result s for this APHERESIS PM EDT procedure are i n the results section. PREPARE RBC Routine 11/01/2021 8:35 Results for this PM EDT procedure are i n the results section. HC HEMOGRAM STAT 11/01/2021 6:55 Results for this PM EDT procedure are i n the results section. HC PARTIAL STAT 11/01/2021 6:55 Results for this THROMBOPLASTIN TIME PM EDT procedur e are in the results section. HC PROTHROMBIN TIME STAT 11/01/2021 6:55 Resul ts for this PM EDT procedure are i n the results section. URINE HOLD Routine 11/01/2021 5:15 Results for this PM EDT procedure are i n the results section. URINALYSIS MICROSCOPIC Routine 11/01/2021 5:11 Re sults for this EXAM PM EDT procedure are i n the results section. URINALYSIS WITH REFLEX Routine 11/01/2021 5:11 Re sults for this CULTURE PM EDT procedure are i n the results section. HC PLATELET COUNT Routine 11/01/2021 12:00 Acute myeloid Resul ts for this PM EDT leukemia in procedure are i n remission the results section. TRANSFUSE 1 UNIT Routine 11/01/2021 10:00 PLATELET PHERESIS AM EDT TRANSFUSE RED BLOOD Routine 11/01/2021 6:32 CELLS AM EDT PREPARE PLATELETS, Routine 11/01/2021 5:15 Result s for this APHERESIS AM EDT procedure are i n the results section. PREPARE RBC Routine 11/01/2021 5:15 Results for this AM EDT procedure are i n the results section. HEMOGRAM Routine 11/01/2021 4:50 Acute myeloid Results for this AM EDT leukemia in procedure are i n remission the results section. HC PCH EBV QUANT Routine 11/01/2021 4:50 Acute myeloid Results for this [facility] AM EDT leukemia in procedure are i n remission the results section. HC CMV QUANT Routine 11/01/2021 4:50 Acute myeloid Results for this AM EDT leukemia in procedure are i n remission the results section. HC CBC,PLT & AUTO DIFF Routine 11/01/2021 4:50 Acute myeloid AM EDT leukemia in remission HC PHOSPHORUS, SERUM Routine 11/01/2021 4:50 Acute myeloid Res ults for this AM EDT leukemia in procedure are i n remission the results section. HC MAGNESIUM, SERUM Routine 11/01/2021 4:50 Acute myeloid Resu lts for this AM EDT leukemia in procedure are i n remission the results section. BASIC METABOLIC PANEL Routine 11/01/2021 4:50 Acute myeloid Re sults for this (NON-FASTING) AM EDT leukemia in procedure are in remission the results section. HC FK-506 (TACROLIMUS) Routine 10/31/2021 8:54 Acute myeloid R esults for this AM EDT leukemia in procedure are i n remission the results section. HC PLATELET COUNT Routine 10/31/2021 8:54 Acute myeloid Result s for this AM EDT leukemia in procedure are i n remission the results section. TRANSFUSE 1 UNIT Routine 10/31/2021 6:31 PLATELET PHERESIS AM EDT PREPARE PLATELETS, Routine 10/31/2021 5:20 Result s for this APHERESIS AM EDT procedure are i n the results section. HEMOGRAM Routine 10/31/2021 4:15 Acute myeloid Results for this AM EDT leukemia in procedure are i n remission the results section. HC CBC,PLT & AUTO DIFF Routine 10/31/2021 4:15 Acute myeloid AM EDT leukemia in remission HC PHOSPHORUS, SERUM Routine 10/31/2021 4:15 Acute myeloid Res ults for this AM EDT leukemia in procedure are i n remission the results section. HC MAGNESIUM, SERUM Routine 10/31/2021 4:15 Acute myeloid Resu lts for this AM EDT leukemia in procedure are i n remission the results section. HEPATIC FUNCTION PANEL Routine 10/31/2021 4:15 Acute myeloid R esults for this AM EDT leukemia in procedure are i n remission the results section. BASIC METABOLIC PANEL Routine 10/31/2021 4:15 Acute myeloid Re sults for this (NON-FASTING) AM EDT leukemia in procedure are in remission the results section. HC UREA NITROGEN, Routine 10/30/2021 11:41 Result s for this URINE 24 HR AM EDT procedure are i n the results section. HC CREATININE - NON Routine 10/30/2021 11:41 Resu lts for this BLOOD AM EDT procedure are i n the results section. TRANSFUSE RED BLOOD Routine 10/30/2021 10:00 CELLS AM EDT SCAN, PERIPHERAL BLOOD Routine 10/30/2021 9:15 Re sults for this AM EDT procedure are i n the results section. HC PLATELET COUNT Routine 10/30/2021 9:15 Acute myeloid Result s for this AM EDT leukemia in procedure are i n remission the results section. TRANSFUSE 1 UNIT Routine 10/30/2021 6:51 PLATELET PHERESIS AM EDT PREPARE PLATELETS, Routine 10/30/2021 4:55 Result s for this APHERESIS AM EDT procedure are i n the results section. PREPARE RBC Routine 10/30/2021 4:55 Results for this AM EDT procedure are i n the results section. TYPE AND SCREEN Routine 10/30/2021 3:45 Results f or this VALIDITY AM EDT procedure are i n the results section. ABORH RECHECK STATUS Routine 10/30/2021 3:45 Resu lts for this AM EDT procedure are i n the results section. ANTIBODY SCREEN MANUAL Routine 10/30/2021 3:45 Re sults for this AM EDT procedure are i n the results section. ABORH TYPE MANUAL Routine 10/30/2021 3:45 Results for this AM EDT procedure are i n the results section. HEMOGRAM Routine 10/30/2021 3:45 Acute myeloid Results for this AM EDT leukemia in procedure are i n remission the results section. HC CBC,PLT & AUTO DIFF Routine 10/30/2021 3:45 Acute myeloid AM EDT leukemia in remission HC PHOSPHORUS, SERUM Routine 10/30/2021 3:45 Acute myeloid Res ults for this AM EDT leukemia in procedure are i n remission the results section. HC MAGNESIUM, SERUM Routine 10/30/2021 3:45 Acute myeloid Resu lts for this AM EDT leukemia in procedure are i n remission the results section. BASIC METABOLIC PANEL Routine 10/30/2021 3:45 Acute myeloid Re sults for this (NON-FASTING) AM EDT leukemia in procedure are in remission the results section. HEMOGRAM Routine 10/29/2021 3:43 Acute myeloid Results for this AM EDT leukemia in procedure are i n remission the results section. HC CBC,PLT & AUTO DIFF Routine 10/29/2021 3:43 Acute myeloid AM EDT leukemia in remission HC PHOSPHORUS, SERUM Routine 10/29/2021 3:43 Acute myeloid Res ults for this AM EDT leukemia in procedure are i n remission the results section. HC MAGNESIUM, SERUM Routine 10/29/2021 3:43 Acute myeloid Resu lts for this AM EDT leukemia in procedure are i n remission the results section. BASIC METABOLIC PANEL Routine 10/29/2021 3:43 Acute myeloid Re sults for this (NON-FASTING) AM EDT leukemia in procedure are in remission the results section. URINALYSIS MICROSCOPIC Routine 10/28/2021 5:06 Re sults for this EXAM PM EDT procedure are i n the results section. URINE HOLD Routine 10/28/2021 5:06 Results for this PM EDT procedure are i n the results section. URINALYSIS WITH REFLEX Routine 10/28/2021 5:06 Re sults for this CULTURE PM EDT procedure are i n the results section. HC C. DIFF QUIK CHEK Routine 10/28/2021 12:07 Res ults for this ANTIGEN PM EDT procedure are i n the results section. HC FK-506 (TACROLIMUS) Routine 10/28/2021 8:50 Acute myeloid R esults for this AM EDT leukemia in procedure are i n remission the results section. HC PLATELET COUNT Routine 10/28/2021 8:50 Acute myeloid Result s for this AM EDT leukemia in procedure are i n remission the results section. TRANSFUSE 1 UNIT Routine 10/28/2021 5:45 PLATELET PHERESIS AM EDT PREPARE PLATELETS, Routine 10/28/2021 5:10 Result s for this APHERESIS AM EDT procedure are i n the results section. HEMOGRAM Routine 10/28/2021 4:45 Results for this AM EDT procedure are i n the results section. HC CBC,PLT & AUTO DIFF Routine 10/28/2021 4:45 AM EDT HC PHOSPHORUS, SERUM Routine 10/28/2021 4:45 Resu lts for this AM EDT procedure are i n the results section. HC MAGNESIUM, SERUM Routine 10/28/2021 4:45 Resul ts for this AM EDT procedure are i n the results section. HEPATIC FUNCTION PANEL Routine 10/28/2021 4:45 Acute myeloid R esults for this AM EDT leukemia in procedure are i n remission the results section. BASIC METABOLIC PANEL Routine 10/28/2021 4:45 Res ults for this (NON-FASTING) AM EDT procedure are in the results section. HC PLATELET COUNT Routine 10/27/2021 12:50 Acute myeloid Resul ts for this PM EDT leukemia in procedure are i n remission the results section. TRANSFUSE 1 UNIT Routine 10/27/2021 10:45 PLATELET PHERESIS AM EDT PREPARE PLATELETS, Routine 10/27/2021 10:05 Resul ts for this APHERESIS AM EDT procedure are i n the results section. SCAN, PERIPHERAL BLOOD Routine 10/27/2021 5:30 Re sults for this AM EDT procedure are i n the results section. HEMOGRAM Routine 10/27/2021 5:30 Acute myeloid Results for this AM EDT leukemia in procedure are i n remission the results section. DIFFERENTIAL, Routine 10/27/2021 5:30 Acute myeloid Results fo r this AUTOMATED AM EDT leukemia in procedure are i n remission the results section. HC CBC,PLT & AUTO DIFF Routine 10/27/2021 5:30 Acute myeloid AM EDT leukemia in remission HC PHOSPHORUS, SERUM Routine 10/27/2021 5:30 Acute myeloid Res ults for this AM EDT leukemia in procedure are i n remission the results section. HC MAGNESIUM, SERUM Routine 10/27/2021 5:30 Acute myeloid Resu lts for this AM EDT leukemia in procedure are i n remission the results section. BASIC METABOLIC PANEL Routine 10/27/2021 5:30 Acute myeloid Re sults for this (NON-FASTING) AM EDT leukemia in procedure are in remission the results section. TYPE AND SCREEN Routine 10/26/2021 3:25 Results f or this VALIDITY AM EST procedure are i n the results section. ABORH RECHECK STATUS Routine 10/26/2021 3:25 Resu lts for this AM EST procedure are i n the results section. ABORH RECHECK STATUS Routine 10/26/2021 3:25 Resu lts for this AM EST procedure are i n the results section. ANTIBODY SCREEN MANUAL Routine 10/26/2021 3:25 Re sults for this AM EST procedure are i n the results section. ABORH TYPE MANUAL Routine 10/26/2021 3:25 Results for this AM EST procedure are i n the results section. SCAN, PERIPHERAL BLOOD Routine 10/26/2021 3:25 Re sults for this AM EST procedure are i n the results section. 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 HC CBC,PLT & AUTO DIFF Routine 10/26/2021 3:25 Acute myeloid AM EST leukemia in remission ANTIBODY SCREEN Routine 10/26/2021 3:25 Results f or this AM EST procedure are i n the results section. TYPE AND SCREEN Routine 10/26/2021 3:25 ([facility]SI) AM EST HC PHOSPHORUS, SERUM Routine 10/26/2021 3:25 Acute myeloid Res ults for this AM EST leukemia in procedure are i n remission the results section. HC MAGNESIUM, SERUM Routine 10/26/2021 3:25 Acute myeloid Resu lts for this AM EST leukemia in procedure are i n remission the results section. 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 SCAN, PERIPHERAL BLOOD Routine 10/25/2021 2:54 Re sults for this AM EST procedure are i n the results section. 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 DIFFERENTIAL, Routine 10/25/2021 2:54 Acute myeloid Results fo r this AUTOMATED AM EST leukemia in procedure are i n remission the results section. HC CBC,PLT & AUTO DIFF Routine 10/25/2021 2:54 Acute myeloid AM EST leukemia in remission HC PHOSPHORUS, SERUM Routine 10/25/2021 2:54 Acute myeloid Res ults for this AM EST leukemia in procedure are i n remission the results section. HC MAGNESIUM, SERUM Routine 10/25/2021 2:54 Acute myeloid Resu lts for this AM EST leukemia in procedure are i n remission the results section. HEPATIC FUNCTION PANEL Routine 10/25/2021 2:54 Acute myeloid R esults for this AM EST leukemia in procedure are i n remission the results section. 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 TRANSFUSE RED BLOOD Routine 10/24/2021 8:35 CELLS AM EST HC FK-506 (TACROLIMUS) Routine 10/24/2021 8:30 Acute myeloid R esults for this AM EST leukemia in procedure are i n remission the results section. PREPARE RBC Routine 10/24/2021 7:40 Results for this AM EST procedure are i n the results section. SCAN, PERIPHERAL BLOOD Routine 10/24/2021 3:16 Re sults for this AM EST procedure are i n the results section. 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 DIFFERENTIAL, Routine 10/24/2021 3:16 Acute myeloid Results fo r this AUTOMATED AM EST leukemia in procedure are i n remission the results section. HC CBC,PLT & AUTO DIFF Routine 10/24/2021 3:16 Acute myeloid AM EST leukemia in remission HC PHOSPHORUS, SERUM Routine 10/24/2021 3:16 Acute myeloid Res ults for this AM EST leukemia in procedure are i n remission the results section. HC MAGNESIUM, SERUM Routine 10/24/2021 3:16 Acute myeloid Resu lts for this AM EST leukemia in procedure are i n remission the results section. HEPATIC FUNCTION PANEL Routine 10/24/2021 3:16 Acute myeloid R esults for this AM EST leukemia in procedure are i n remission the results section. BASIC METABOLIC PANEL Routine 10/24/2021 3:16 Acute myeloid Re sults for this (NON-FASTING) AM EST leukemia in procedure are in remission the results section. SCAN, PERIPHERAL BLOOD Routine 10/23/2021 4:05 Re sults for this AM EST procedure are i n the results section. 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 DIFFERENTIAL, Routine 10/23/2021 4:05 Acute myeloid Results fo r this AUTOMATED AM EST leukemia in procedure are i n remission the results section. HC CBC,PLT & AUTO DIFF Routine 10/23/2021 4:05 Acute myeloid AM EST leukemia in remission HC PHOSPHORUS, SERUM Routine 10/23/2021 4:05 Acute myeloid Res ults for this AM EST leukemia in procedure are i n remission the results section. HC MAGNESIUM, SERUM Routine 10/23/2021 4:05 Acute myeloid Resu lts for this AM EST leukemia in procedure are i n remission the results section. HC IGG, SERUM Routine 10/23/2021 4:05 Acute myeloid Results fo r this AM EST leukemia in procedure are i n remission the results section. HEPATIC FUNCTION PANEL Routine 10/23/2021 4:05 Acute myeloid R esults for this AM EST leukemia in procedure are i n remission the results section. BASIC METABOLIC PANEL Routine 10/23/2021 4:05 Acute myeloid Re sults for this (NON-FASTING) AM EST leukemia in procedure are in remission the results section. TYPE AND SCREEN Routine 10/22/2021 10:02 Results for this VALIDITY PM EST procedure are i n the results section. ABORH RECHECK STATUS Routine 10/22/2021 10:02 Res ults for this PM EST procedure are i n the results section. ABO/RH TYPING Routine 10/22/2021 10:02 Results fo r this PM EST procedure are i n the results section. ANTIBODY SCREEN Routine 10/22/2021 10:02 Results for this PM EST procedure are i n the results section. HC ABO-MICROTITER Routine 10/22/2021 10:02 PM EST TRANSFUSION REACTION Routine 10/22/2021 2:53 Resu lts for this INTERP PM EST procedure are i n the results section. SCAN, PERIPHERAL BLOOD Routine 10/22/2021 3:13 Re sults for this AM EST procedure are i n the results section. 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 DIFFERENTIAL, Routine 10/22/2021 3:13 Acute myeloid Results fo r this AUTOMATED AM EST leukemia in procedure are i n remission the results section. HC CBC,PLT & AUTO DIFF Routine 10/22/2021 3:13 Acute myeloid AM EST leukemia in remission HC PHOSPHORUS, SERUM Routine 10/22/2021 3:13 Acute myeloid Res ults for this AM EST leukemia in procedure are i n remission the results section. HC MAGNESIUM, SERUM Routine 10/22/2021 3:13 Acute myeloid Resu lts for this AM EST leukemia in procedure are i n remission the results section. BASIC METABOLIC PANEL Routine 10/22/2021 3:13 Acute myeloid Re sults for this (NON-FASTING) AM EST leukemia in procedure are in remission the results section. LAB SCAN 10/22/2021 12:00 AM EST HC PHOSPHORUS, SERUM Routine 10/21/2021 4:45 Acute myeloid Res ults for this AM EST leukemia in procedure are i n remission the results section. HC MAGNESIUM, SERUM Routine 10/21/2021 4:45 Acute myeloid Resu lts for this AM EST leukemia in procedure are i n remission the results section. HEPATIC FUNCTION PANEL Routine 10/21/2021 4:45 Acute myeloid R esults for this AM EST leukemia in procedure are i n remission the results section. BASIC METABOLIC PANEL Routine 10/21/2021 4:45 Acute myeloid Re sults for this (NON-FASTING) AM EST leukemia in procedure are in remission the results section. HC BLOOD CULTURE- STAT 10/20/2021 5:32 Results for this PM EST procedure are i n the results section. HC BLOOD CULTURE- STAT 10/20/2021 5:32 Results for this PM EST procedure are i n the results section. HC MAGNESIUM, SERUM Routine 10/20/2021 5:32 Resul ts for this PM EST procedure are i n the results section. HC VENIPUNCTURE Routine 10/20/2021 5:32 Results f or this PM EST procedure are i n the results section. DIFFERENTIAL, MANUAL Routine 10/20/2021 3:50 Resu lts for this AM EST procedure are i n the results section. 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 HC CBC,PLT & AUTO DIFF Routine 10/20/2021 3:50 Acute myeloid AM EST leukemia in remission HC PHOSPHORUS, SERUM Routine 10/20/2021 3:50 Acute myeloid Res ults for this AM EST leukemia in procedure are i n remission the results section. HC MAGNESIUM, SERUM Routine 10/20/2021 3:50 Acute myeloid Resu lts for this AM EST leukemia in procedure are i n remission the results section. BASIC METABOLIC PANEL Routine 10/20/2021 3:50 Acute myeloid Re sults for this (NON-FASTING) AM EST leukemia in procedure are in remission the results section. URINALYSIS MICROSCOPIC Routine 10/19/2021 5:47 Re sults for this EXAM PM EST procedure are i n the results section. URINALYSIS WITH REFLEX Routine 10/19/2021 5:47 Re sults for this CULTURE PM EST procedure are i n the results section. XR CHEST PA AND STAT 10/19/2021 1:58 Results f or this LATERAL PM EST procedure are i n the results section. HC BLOOD CULTURE- STAT 10/19/2021 11:39 Acute myeloid Resul ts for this AM EST leukemia in procedure are i n remission the results section. HC BLOOD CULTURE- STAT 10/19/2021 11:33 Acute myeloid Resul ts for this AM EST leukemia in procedure are i n remission the results section. HC C. DIFF QUIK CHEK Routine 10/19/2021 10:20 Res ults for this ANTIGEN AM EST procedure are i n the results section. COVID-19 PCR Routine 10/19/2021 4:05 Results for this AM EST procedure are i n the results section. HC PHOSPHORUS, SERUM Routine 10/19/2021 4:05 Acute myeloid Res ults for this AM EST leukemia in procedure are i n remission the results section. HC MAGNESIUM, SERUM Routine 10/19/2021 4:05 Acute myeloid Resu lts for this AM EST leukemia in procedure are i n remission the results section. BASIC METABOLIC PANEL Routine 10/19/2021 4:05 Acute myeloid Re sults for this (NON-FASTING) AM EST leukemia in procedure are in remission the results section. 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 DIFFERENTIAL, Routine 10/18/2021 4:55 Acute myeloid Results fo r this AUTOMATED AM EST leukemia in procedure are i n remission the results section. HC CBC,PLT & AUTO DIFF Routine 10/18/2021 4:55 Acute myeloid AM EST leukemia in remission HC PHOSPHORUS, SERUM Routine 10/18/2021 4:55 Acute myeloid Res ults for this AM EST leukemia in procedure are i n remission the results section. HC MAGNESIUM, SERUM Routine 10/18/2021 4:55 Acute myeloid Resu lts for this AM EST leukemia in procedure are i n remission the results section. BASIC METABOLIC PANEL Routine 10/18/2021 4:55 Acute myeloid Re sults for this (NON-FASTING) AM EST leukemia in procedure are in remission the results section. EKG 12-LEAD Routine 10/17/2021 11:23 Paroxysmal atrial Result s for this AM EST fibrillation procedure are i n the results section. BMP W/FASTING GLUCOSE Routine 10/17/2021 10:50 Re sults for this AM EST procedure are i n the results section. HC PHOSPHORUS, SERUM Routine 10/17/2021 3:10 Acute myeloid Res ults for this AM EST leukemia in procedure are i n remission the results section. HC MAGNESIUM, SERUM Routine 10/17/2021 3:10 Acute myeloid Resu lts for this AM EST leukemia in procedure are i n remission the results section. HEPATIC FUNCTION PANEL Routine 10/17/2021 3:10 Acute myeloid R esults for this AM EST leukemia in procedure are i n remission the results section. BASIC METABOLIC PANEL Routine 10/17/2021 3:10 Acute myeloid Re sults for this (NON-FASTING) AM EST leukemia in procedure are in remission the results section. HEMOGRAM Routine 10/16/2021 3:45 Acute myeloid Results for this AM EST leukemia in procedure are i n remission the results section. DIFFERENTIAL, Routine 10/16/2021 3:45 Acute myeloid Results fo r this AUTOMATED AM EST leukemia in procedure are i n remission the results section. HC CBC,PLT & AUTO DIFF Routine 10/16/2021 3:45 Acute myeloid AM EST leukemia in remission HC PHOSPHORUS, SERUM Routine 10/16/2021 3:45 Acute myeloid Res ults for this AM EST leukemia in procedure are i n remission the results section. HC MAGNESIUM, SERUM Routine 10/16/2021 3:45 Acute myeloid Resu lts for this AM EST leukemia in procedure are i n remission the results section. HEPATIC FUNCTION PANEL Routine 10/16/2021 3:45 Acute myeloid R esults for this AM EST leukemia in procedure are i n remission the results section. BASIC METABOLIC PANEL Routine 10/16/2021 3:45 Acute myeloid Re sults for this (NON-FASTING) AM EST leukemia in procedure are in remission the results section. RAPID COVID-19 PCR Routine 10/15/2021 8:33 Result s for this ([facility]/APD/NLH) PM EST procedure are in the results section. NMDP DONOR SAMPLE Routine 10/15/2021 6:32 Results for this TESTING PM EST procedure are i n the results section. documented in this encounter Results Transfuse RBC (11/18/2021 12:31 PM EDT) Parviz Modi MD NURSING TREATMENT ORDERABLES - BLOOD ADMIN Transfuse RBC (11/18/2021 12:31 PM EDT) Parviz Modi MD NURSING TREATMENT ORDERABLES - BLOOD ADMIN Prepare RBC (11/18/2021 9:00 AM EDT) P athologist Signature Dispensed? Yes [facility] Specimen Anatomical Collection Method Collection Time Receive d Time (Source) Location / / Volume Laterality Blood 11/18/2021 9:00 AM 2 8:56 EDT AM EDT Parviz Modi MD BLOOD BANK ORDERABLES Performing Organization Address City/[facility]/[place] [address] Tacrolimus level (11/18/2021 8:05 AM EDT) P athologist Signature Tacrolimus Lvl 13.8 ng/mL [facility] Comment: Trough therapeutic range is [...] Location / / Volume Laterality Blood 11/18/2021 8:05 AM 2 8:46 EDT AM EDT Resulting Agency Comment Spec In Lab Parviz Modi MD CHEMISTRY ORDERABLES Performing Organization Address City/[facility]/ZIP [place] [address] (ABNORMAL) Differential, Manual (11/18/2021 4:00 AM EDT) [facility] Method Time Signature Neutrophil % 67 % [facility] Lymphocyte % 10 % [facility] Monocyte % 18 % [facility] Basophil % 2 % [facility] Metamyelo % 1 % [facility] Myelocyte % 1 % [facility] Promyelocyte % 1 % [facility] Neutrophil Abs 4.6 1.7 - 6.1 [facility] x10(3)[facility] LABORATORY Neutr Abs (ANC) 4.64 1.70 - [facility] 6.10 [facility] x10(3)[facility] LABORATORY Lymphocyte Abs 0.7 (L) 0.9 - 3.2 [facility] x10(3)[facility] LABORATORY Monocyte Abs 1.2 (H) 0.3 - 0.9 [facility] x10(3)[facility] LABORATORY Basophil Abs 0.1 0.0 - 0.1 [facility] x10(3)[facility] LABORATORY Metamyelo Abs 0.1 (H) 0.0 - 0.0 [facility] x10(3)/[facility] LABORATORY Myelocyte Abs 0.1 (H) 0.0 - 0.0 [facility] x10(3)/[facility] LABORATORY Promyelo Abs 0.1 (H) 0.0 - 0.0 [facility] x10(3)/[facility] LABORATORY Tot Diff Cell Ct 100 [facility] Plat Estimate Decreased [facility] RBC Morphology Normal [facility] Toxic Present [facility] LABORATORY Specimen Anatomical Collection Method Collection Time Receive d Time (Source) Location / / Volume Laterality Blood 11/18/2021 4:00 AM 4:15 EDT AM EDT Resulting Agency Comment Spec In Lab Parviz Modi MD HEMATOLOGY ORDERABLES Performing Organization Address City/State/[place] [address] (ABNORMAL) Hemogram (11/18/2021 4:00 AM EDT) Patholo gist Method Time Signature WBC 6.9 4.0 - 9.5 [facility] x10(3)/[facility] LABORATORY RBC 2.37 (L) 4.58 - [place] 5.54 [facility] x10(6)/[facility] L LABORATORY Hemoglobin 7.1 (L) 13.7 [facility] g/dL [facility] Hematocrit 21.3 (L) 40.5 - [facility] 48.5 % [facility] MCV 89.9 82.9 - [facility] 93.1 [facility] LABORATORY MCH 30.0 27.5 - [facility] 32.1 pg [facility] MCHC 33.3 32.0 - [facility] 35.7 g/dL [facility] Platelets 21 (L) 145 - 357 [facility] x10(3)/[facility] LABORATORY RDWSD 46.4 (H) 36.0 - [facility] 45.0 [facility] LABORATORY RDWCV 14.4 (H) 11.4 - [facility] 13.8 % [facility] MPV Not Measured 7.6 - [facility] 12.9 [facility] LABORATORY nRBC % Auto 1.9 % [facility] nRBC Abs Auto 0.130 (H) 0.000 - [facility] 0.000 [facility] x10(3)/[facility] L LABORATORY Specimen Anatomical Collection Method Collection Time Receive d Time (Source) Location / / Volume Laterality Blood 11/18/2021 4:00 AM 4:15 EDT AM EDT Resulting Agency Comment Spec In Lab Parviz Modi MD HEMATOLOGY ORDERABLES Performing Organization Address City/State/[place] [address] (ABNORMAL) Hepatic Function Panel (11/18/2021 4:00 AM EDT) P athologist Signature Total Protein 6.2 6.1 - 8.0 [facility] g/dL [facility] Albumin 3.0 (L) 3.2 - 5.2 [place] g/dL [facility] AST 24 0 - 39 [facility] unit/L [facility] ALT 21 0 - 55 [facility] unit/L [facility] Alk Phos 124 40 - 130 [facility] [place] unit/L [facility] Total 0.4 0.2 - 1.3 [facility] Bilirubin mg/dL [facility] Bili, Direct 0.1 0.0 - 0.3 [facility] mg/dL [facility] Specimen Anatomical Collection Method Collection Time Receive d Time (Source) Location / / Volume Laterality Blood 11/18/2021 4:00 AM 2 4:15 EDT AM EDT Resulting Agency Comment Spec In Lab Parviz Modi MD CHEMISTRY ORDERABLES Performing Organization Address [facility]/ZIP [facility] Phon e Number [address] (ABNORMAL) Phosphorus (11/18/2021 4:00 AM EDT) P athologist Signature Phosphorus 4.8 (H) 2.5 - 4.5 [facility] mg/dL [facility] Specimen Anatomical Collection Method Collection Time Receive d Time (Source) Location / / Volume Laterality Blood 11/18/2021 4:00 AM 2 4:15 EDT AM EDT Resulting Agency Comment Spec In Lab Parviz Modi MD CHEMISTRY ORDERABLES Performing Organization Address City/[facility]/ZIP Code Phon e Number [address] Magnesium (11/18/2021 4:00 AM EDT) P athologist Signature Magnesium 0.76 0.69 - 1.07 [place] mmol/L [facility] Specimen Anatomical Collection Method Collection Time Receive d Time (Source) Location / / Volume Laterality Blood 11/18/2021 4:00 AM 2 4:15 EDT AM EDT Resulting Agency Comment Spec In Lab Parviz Modi MD CHEMISTRY ORDERABLES Performing Organization Address City/State/[place] [address] (ABNORMAL) Basic Metabolic Panel (non-fasting) (11/18/2021 4:00 AM EDT) P athologist Signature Glucose Lvl 101 65 - 199 [facility] mg/dL [facility] Comment: Diabetes: >=200 mg/dL plus symp toms BUN 31 (H) 10 - 20 mg/dL [facility] Creatinine 1.45 0.80 - 1.50 mg/dL [facility] Sodium 139 135 - 145 mmol/L [facility] Potassium 5.1 (H) 3.5 - 5.0 mmol/L [facility] Comment: Please note: ??Patients with WBC >100,00 0 may have falsely elevated Potassium levels. ??For accurate Potassium quantif ication in these patients send serum separator tube (gold top) for subsequent determinations. ??Contact the Clinical Chemistry Laboratory if there are any qu estions. Chloride 105 98 - 107 mmol/L [facility] CO2 22 22 - 31 mmol/L [facility] Anion Gap 12 5 - 15 mmol/L [facility] Calcium 9.0 8.5 - 10.5 mg/dL [facility] Estimated GFR 52 (L) >=60 mL/min/1.73 m?? [facility] Comment: This patient? s estimated glomerular filtration rate (eGFR) is between 52 mL/min/1.73 m2 (patients with less muscl e mass per kg body weight) and 60 mL/min/1.73 m2 (patients with more muscl e [...] Modi MD CHEMISTRY ORDERABLES Performing Organization Address City/[facility]/ZIP [place] [address] (ABNORMAL) Phosphorus (11/17/2021 3:47 PM EDT) athologist Signature Phosphorus 5.1 (H) 2.5 - 4.5 [facility] mg/dL [facility] Specimen Anatomical Collection Method Collection Time Receive d Time (Source) Location / / Volume Laterality Blood 11/17/2021 3:47 PM 2 3:56 EDT PM EDT Resulting Agency Comment Spec In Lab Luis Manuel Goodrich Jr., MD CHEMISTRY ORDERABLES Performing Organization Address City/[facility]/ZIP [facility] [place] [address] (ABNORMAL) Basic Metabolic Panel (non-fasting) (11/17/2021 3:47 PM EDT) athologist Signature Glucose Lvl 123 65 - 199 [facility] mg/dL [facility] Comment: Diabetes: >=200 mg/dL plus symp toms BUN 35 (H) 10 - 20 mg/dL [facility] Creatinine 1.65 (H) 0.80 - 1.50 mg/dL [facility] Sodium 138 135 - 145 mmol/L [facility] Potassium 4.8 3.5 - 5.0 mmol/L [facility] Comment: Please note: ??Patients with WBC >100,00 0 may have falsely elevated Potassium levels. ??For accurate Potassium quantif ication in these patients send serum separator tube (gold top) for subsequent determinations. ??Contact the Clinical Chemistry Laboratory if there are any qu estions. Chloride 104 98 - 107 mmol/L [facility] CO2 23 22 - 31 mmol/L [facility] Anion Gap 11 5 - 15 mmol/L [facility] Calcium 9.2 8.5 - 10.5 mg/dL [facility] Estimated GFR 44 (L) >=60 mL/min/1.73 m?? [facility] Comment: This patient? s estimated glomerular filtration rate (eGFR) is between 44 mL/min/1.73 m2 (patients with less muscl e mass per kg body weight) and 51 mL/min/1.73 m2 (patients with more muscl e [...] (Source) Location / / Volume Laterality Blood 11/17/2021 3:47 PM 2 3:56 EDT PM EDT Resulting Agency Comment Spec In Lab Luis Manuel Goodrich Jr., MD CHEMISTRY ORDERABLES Performing Organization Address City/[facility]/ZIP Code Phon e Number [address] Urea nitrogen, urine, random (11/17/2021 8:57 AM EDT) P athologist Signature U Urea 1,033 mg/dL [facility] LABORATORY Specimen Anatomical Collection Method Collection Time Receive d Time (Source) Location / / Volume Laterality Urine 11/17/2021 8:57 AM 2 9:03 EDT AM EDT Resulting Agency Comment Spec In Lab Luis Manuel Goodrich Jr., MD URINE ORDERABLES Performing Organization Address City/[facility] Phon e Number [address] Creatinine, urine, random (11/17/2021 8:57 AM EDT) P athologist Signature U Creatinine 130 mg/dL [facility] Specimen Anatomical Collection Method Collection Time Receive d Time (Source) Location / / Volume Laterality Urine 11/17/2021 8:57 AM 2 9:03 EDT AM EDT Resulting Agency Comment Spec In Lab Luis Manuel Goodrich Jr., MD URINE ORDERABLES Performing Organization Address City/State/ZIP [place] [address] Sodium, urine, random (11/17/2021 8:57 AM EDT) P athologist Signature U Sodium 48 mmol/L [facility] Specimen Anatomical Collection Method Collection Time Receive d Time (Source) Location / / Volume Laterality Urine 11/17/2021 8:57 AM 2 9:03 EDT AM EDT Resulting Agency Comment Spec In Lab Luis Manuel Goodrich Jr., MD URINE ORDERABLES Performing Organization Address City/[facility]/ZIP [place] [address] (ABNORMAL) Differential, Manual (11/17/2021 4:00 AM EDT) Patholo gist Method Time Signature Neutrophil % 61 % [facility] Lymphocyte % 13 % [facility] Monocyte % 21 % [facility] Metamyelo % 2 % [facility] Promyelocyte % 2 % [facility] Blasts % 1 % [facility] Neutrophil Abs 5.3 1.7 - 6.1 [facility] x10(3)/[facility] LABORATORY Neutr Abs (ANC) 5.28 1.70 - [facility] 6.10 [facility] x10(3)/[facility] LABORATORY Lymphocyte Abs 1.1 0.9 - 3.2 [facility] x10(3)/[facility] LABORATORY Monocyte Abs 1.8 (H) 0.3 - 0.9 [facility] x10(3)/[facility] LABORATORY Metamyelo Abs 0.2 (H) 0.0 - 0.0 [facility] x10(3)/[facility] LABORATORY Promyelo Abs 0.2 (H) 0.0 - 0.0 [facility] x10(3)/[facility] LABORATORY Blast Abs 0.1 (H) 0.0 - 0.0 [facility] x10(3)/[facility] LABORATORY Tot Diff Cell Ct 100 [facility] Plat Estimate Decreased [facility] RBC Morphology Normal [facility] Toxic Present [facility] LABORATORY Specimen Anatomical Collection Method Collection Time Receive d Time (Source) Location / / Volume Laterality Blood 11/17/2021 4:00 AM 4:13 EDT AM EDT Resulting Agency Comment Spec In Lab Parviz Modi MD HEMATOLOGY ORDERABLES Performing Organization Address City/State/[place] [address] (ABNORMAL) Hemogram (11/17/2021 4:00 AM EDT) [facility] gist Method Time Signature WBC 8.6 4.0 - 9.5 [facility] [place] x10(3)/[facility] LABORATORY RBC 2.56 (L) 4.58 - [place] 5.54 [facility] x10(6)/[facility] LABORATORY Hemoglobin 7.9 (L) 13.7 - [place] 16.5 g/dL [facility]ORY Hematocrit 23.2 (L) 40.5 - [facility] 48.5 % [facility]ORY MCV 90.6 82.9 - [facility] 93.1 [facility] LABORATORY MCH 30.9 27.5 - [facility] [place] 32.1 pg [facility]ORY MCHC 34.1 32.0 - [facility] [place] 35.7 g/dL [facility]ORY Platelets 17 145 - 357 [facility] (Critical) x10(3)/[facility] LABORATORY RDWSD 47.2 (H) 36.0 - [place] 45.[address] [facility] RDWCV 14.5 (H) 11.4 - [facility] 13.8 % [facility]ORY MPV Not Measured 7.6 - [facility] 12.9 [facility] LABORATORY nRBC % Auto 1.2 % [facility] nRBC Abs Auto 0.100 (H) 0.000 - [place] 0.000 [facility] x10(3)/[facility] L LABORATORY Specimen Anatomical Collection Method Collection Time Receive d Time (Source) Location / / Volume Laterality Blood 11/17/2021 4:00 AM 2 4:13 EDT AM EDT Resulting Agency Comment Spec In Lab Parviz Modi MD HEMATOLOGY ORDERABLES Performing Organization Address City/State/ZIP Code Phon e Number [address] (ABNORMAL) Phosphorus (11/17/2021 4:00 AM EDT) P athologist Signature Phosphorus 5.7 (H) 2.5 - 4.5 [facility] [place] mg/dL [facility]ORY Specimen Anatomical Collection Method Collection Time Receive d Time (Source) Location / / Volume Laterality Blood 11/17/2021 4:00 AM 2 4:13 EDT AM EDT Resulting Agency Comment Spec In Lab Parviz Modi MD CHEMISTRY ORDERABLES Performing Organization Address City/State/ZIP [place] [address] Magnesium (11/17/2021 4:00 AM EDT) P athologist Signature Magnesium 0.70 0.69 - 1.07 [facility]/L [facility] Specimen Anatomical Collection Method Collection Time Receive d Time (Source) Location / / Volume Laterality Blood 11/17/2021 4:00 AM 2 4:13 EDT AM EDT Resulting Agency Comment Spec In Lab Parviz Modi MD CHEMISTRY ORDERABLES Performing Organization Address City/State/ZIP [place] [address] (ABNORMAL) Basic Metabolic Panel (non-fasting) (11/17/2021 4:00 AM EDT) P athologist Signature Glucose Lvl 108 65 - 199 [facility] [place] mg/dL [facility] Comment: Diabetes: >=200 mg/dL plus symp toms BUN 35 (H) 10 - 20 mg/dL [facility] Creatinine 1.53 (H) 0.80 - 1.50 mg/dL [facility] Sodium 136 135 - 145 mmol/L [facility] Potassium 5.1 (H) 3.5 - 5.0 mmol/L [facility] Comment: Please note: ??Patients with WBC >100,00 0 may have falsely elevated Potassium levels. ??For accurate Potassium quantif ication in these patients send serum separator tube (gold top) for subsequent determinations. ??Contact the Clinical Chemistry Laboratory if there are any qu estions. Chloride 101 98 - 107 mmol/L [facility] CO2 23 22 - 31 mmol/L [facility] Anion Gap 12 5 - 15 mmol/L [facility] Calcium 9.3 8.5 - 10.5 mg/dL [facility] Estimated GFR 48 (L) >=60 mL/min/1.73 m?? [facility] Comment: This patient? s estimated [...] (Source) Location / / Volume Laterality Blood 11/17/2021 4:00 AM 2 4:13 EDT AM EDT Resulting Agency Comment Spec In Lab Parviz Modi MD CHEMISTRY ORDERABLES Performing Organization Address City/State/[place] [address] (ABNORMAL) Differential, Manual (11/16/2021 3:20 AM EDT) [facility] Method Time Signature Neutrophil % 75 % [facility] Lymphocyte % 6 % [facility] Monocyte % 13 % [facility] Basophil % 1 % [facility] Metamyelo % 4 % [facility] Myelocyte % 1 % [facility] Neutrophil Abs 7.8 (H) 1.7 - 6.1 [facility] x10(3)/[facility] LABORATORY Neutr Abs (ANC) 7.85 (H) 1.70 - [facility] 6.10 [place] x10(3)/[facility] LABORATORY Lymphocyte Abs 0.6 (L) 0.9 - 3.2 [facility] x10(3)/[facility] LABORATORY Monocyte Abs 1.4 (H) 0.3 - 0.9 [facility] x10(3)/[facility] LABORATORY Basophil Abs 0.1 0.0 - 0.1 [facility] x10(3)/[facility] LABORATORY Metamyelo Abs 0.4 (H) 0.0 - 0.0 [facility] x10(3)/[facility] LABORATORY Myelocyte Abs 0.1 (H) 0.0 - 0.0 [facility] x10(3)/[facility] LABORATORY Tot Diff Cell Ct 100 [facility] Plat Estimate Decreased [facility] RBC Morphology Abnormal [facility] Polychromasia Present >5/HPF [facility] Ovalocytes 1-5 /HPF [facility] Toxic Granulation Present [facility] Dohle Bodies Present [facility] Specimen Anatomical Collection Method Collection Time Receive d Time (Source) Location / / Volume Laterality Blood 11/16/2021 3:20 AM 3:32 EDT AM EDT Resulting Agency Comment Spec In Lab Parviz Modi MD HEMATOLOGY ORDERABLES Performing Organization Address City/State/[place] [address] (ABNORMAL) Hemogram (11/16/2021 3:20 AM EDT) Patholo gist Method Time Signature WBC 10.5 (H) 4.0 - 9.5 [facility] x10(3)/[facility] LABORATORY RBC 2.76 (L) 4.58 - [facility] 5.54 [facility] x10(6)/[facility] L LABORATORY Hemoglobin 8.3 (L) 13.7 - [facility] 16.5 g/dL [facility]ORY Hematocrit 24.8 (L) 40.5 - [facility] 48.5 % [facility] LABORATORY MCV 89.9 82.9 - [facility] 93.1 [facility] LABORATORY MCH 30.1 27.5 - [facility] 32.1 pg [facility] MCHC 33.5 32.0 - [facility] 35.7 g/dL [facility] Platelets 16 145 - 357 [facility] (Critical) x10(3)/[facility] LABORATORY RDWSD 46.6 (H) 36.0 - [facility] 45.0 [facility] [facility] LABORATORY RDWCV 14.3 (H) 11.4 - [facility] 13.8 % [facility] LABORATORY MPV Not Measured 7.6 - [facility] 12.9 [facility] LABORATORY nRBC % Auto 1.1 % [facility] LABORATORY nRBC Abs Auto 0.110 (H) 0.000 - [facility] ARASELI 0.000 [facility] x10(3)/[facility] LABORATORY Specimen Anatomical Collection Method Collection Time Receive d Time (Source) Location / / Volume Laterality Blood 11/16/2021 3:20 AM 3:32 EDT AM EDT Resulting Agency Comment Spec In Lab Parviz Modi MD HEMATOLOGY ORDERABLES Performing Organization Address City/State/[place] [address] (ABNORMAL) Basic Metabolic Panel (non-fasting) (11/16/2021 3:20 AM EDT) P athologist Signature Glucose Lvl 110 65 - 199 [facility] mg/dL [facility] LABORATORY Comment: Diabetes: >=200 mg/dL plus symp toms BUN 31 (H) 10 - 20 mg/dL [facility] LABORATORY Creatinine 1.12 0.80 - 1.50 mg/dL [facility] LABORATORY Sodium 138 135 - 145 mmol/L [facility] LABORATORY Potassium 5.0 3.5 - 5.0 mmol/L [facility] LABORATORY Comment: Please note: ??Patients with WBC >100,00 0 may have falsely elevated Potassium levels. ??For accurate Potassium quantif ication in these patients send serum separator tube (gold top) for subsequent determinations. ??Contact the Clinical Chemistry Laboratory if there are any qu estions. Chloride 103 98 - 107 mmol/L [facility] LABORATORY CO2 24 22 - 31 mmol/L [facility] LABORATORY Anion Gap 11 5 - 15 mmol/L [facility] LABORATORY Calcium 9.2 8.5 - 10.5 mg/dL [facility] LABORATORY Estimated GFR 71 >=60 mL/min/1.73 m?? [facility] LABORATORY Comment: This patient? s estimated glomerular filtration rate (eGFR) is between 71 mL/min/1.73 m2 (patients with less muscl e mass per kg body weight) and 82 mL/min/1.73 m2 (patients with more muscl e [...] (Source) Location / / Volume Laterality Blood 11/16/2021 3:20 AM 3:32 EDT AM EDT Resulting Agency Comment Spec In Lab Parviz Modi MD CHEMISTRY ORDERABLES Performing Organization Address City/State/ZIP [place] [address] Magnesium (11/16/2021 3:20 AM EDT) P athologist Signature Magnesium 0.77 0.69 - 1.07 [facility] ARAESLI mmol/L [facility] LABORATORY Specimen Anatomical Collection Method Collection Time Receive d Time (Source) Location / / Volume Laterality Blood 11/16/2021 3:20 AM 2 3:32 EDT AM EDT Resulting Agency Comment Spec In Lab Parviz Modi MD CHEMISTRY ORDERABLES Performing Organization Address City/[facility]/ZIP Code Phon e Number [address] (ABNORMAL) Phosphorus (11/16/2021 3:20 AM EDT) athologist Signature Phosphorus 5.1 (H) 2.5 - 4.5 [facility] ARASELI mg/dL [facility] LABORATORY Specimen Anatomical Collection Method Collection Time Receive d Time (Source) Location / / Volume Laterality Blood 11/16/2021 3:20 AM 2 3:32 EDT AM EDT Resulting Agency Comment Spec In Lab Parviz Modi MD CHEMISTRY ORDERABLES Performing Organization Address City/[facility]/ZIP Code Phon e Number [address] Type and Screen Validity (11/15/2021 3:45 AM EDT) [facility] Time Signature T&S only valid [facility] ARASELI at [facility] LABORATORY Comment: This Type and Screen result is only valid at the [facility] Hospital Specimen Anatomical Collection Method Collection Time Receive d Time (Source) Location / / Volume Laterality Blood Venous Draw / 11/15/2021 3:45 AM 11/16/19 22 4:02 Unknown EDT AM EDT Resulting Agency Comment Spec In Lab Christina Medrano MD BLOOD BANK ORDERABLES Performing Organization Address City/State/ZIP [place] [address] ABORH Recheck Status (11/15/2021 3:45 AM EDT) [facility] Method Time Signature ABORH Type Completed [facility] LABORATORY Specimen Anatomical Collection Method Collection Time Receive d Time (Source) Location / / Volume Laterality Blood Venous Draw / 11/15/2021 3:45 AM 11/16/19 4:02 Unknown EDT AM EDT Resulting Agency Comment Spec In Lab Christina Medrano MD BLOOD BANK ORDERABLES Performing Organization Address City/State/[place] [address] (ABNORMAL) Differential, Manual (11/15/2021 3:45 AM EDT) [facility] Method Time Signature Neutrophil % 66 % [facility] LABORATORY Lymphocyte % 3 % [facility] LABORATORY Monocyte % 19 % [facility] LABORATORY Eosinophil % 2 % [facility] LABORATORY Metamyelo % 3 % [facility] LABORATORY Myelocyte % 4 % [facility] LABORATORY Promyelocyte % 3 % [facility] LABORATORY Neutrophil Abs 6.6 (H) 1.7 - 6.1 [facility] x10(3)/[facility] LABORATORY Neutr Abs (ANC) 6.55 (H) 1.70 - [facility] 6.10 [place] x10(3)/[facility] LABORATORY Lymphocyte Abs 0.3 (L) 0.9 - 3.2 [facility] x10(3)/[facility] LABORATORY Monocyte Abs 1.9 (H) 0.3 - 0.9 [facility] x10(3)/[facility] LABORATORY Eosinophil Abs 0.2 0.0 - 0.4 [facility] x10(3)/[facility] LABORATORY Metamyelo Abs 0.3 (H) 0.0 - 0.0 [facility] x10(3)/[facility] LABORATORY Myelocyte Abs 0.4 (H) 0.0 - 0.0 [facility] x10(3)/[facility] LABORATORY Promyelo Abs 0.3 (H) 0.0 - 0.0 [facility] x10(3)/[facility] LABORATORY Tot Diff Cell Ct 100 [facility] LABORATORY Plat Estimate Decreased [facility] LABORATORY RBC Morphology Abnormal [facility] LABORATORY Polychromasia Present >5/HPF [facility] LABORATORY Ovalocytes 1-5 /HPF [facility] LABORATORY Tear Drop Cells 1-5 /HPF [facility] LABORATORY Toxic Granulation Present [facility] LABORATORY Dohle Bodies Present [facility] LABORATORY Specimen Anatomical Collection Method Collection Time Receive d Time (Source) Location / / Volume Laterality Blood 11/15/2021 3:45 AM 3:56 EDT AM EDT Resulting Agency Comment Spec In Lab Parviz Modi MD HEMATOLOGY ORDERABLES Performing Organization Address City/[facility]/ZIP Code Phon e Number [address] Antibody screen manual (11/15/2021 3:45 AM EDT) Analysis Performed At Patho logist Time Signature AB Screen Negative [facility] LABORATORY Specimen Anatomical Collection Method Collection Time Receive d Time (Source) Location / / Volume Laterality Blood Venous Draw / 11/15/2021 3:45 AM 11/16/19 4:02 Unknown EDT AM EDT Resulting Agency Comment Spec In Lab Christina Medrano MD BLOOD BANK ORDERABLES Performing Organization Address City/[facility]/ZIP [place] [address] ABORh Type Manual (11/15/2021 3:45 AM EDT) Patholo gist Method Time Signature Expires at 11/18/2021 [facility] [id number] on: [facility] LABORATORY ABORh Type O Pos [facility] LABORATORY Comment: 11/15/2021 04:43 ??LAMBSY Allogeneic Transplant Recipient: 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 Recipient pre-Transplant ABORH: O Pos Donor ABORH: O Neg Any questions/concerns call Ext [phone]. Specimen Anatomical Collection Method Collection Time Receive d Time (Source) Location / / Volume Laterality Blood Venous Draw / 11/15/2021 3:45 AM 11/16/19 4:02 Unknown EDT AM EDT Resulting Agency Comment Spec In Lab Christina Medrano MD BLOOD BANK ORDERABLES Performing Organization Address City/State/Z[place] [address] (ABNORMAL) Hemogram (11/15/2021 3:45 AM EDT) [facility] Method Time Signature WBC 9.9 (H) 4.0 - 9.5 [facility]EL[facility] x10(3)/[facility] LABORATORY RBC 2.63 (L) 4.58 - [facility] ARASELI 5.54 [facility] x10(6)/[facility] LABORATORY Hemoglobin 8.1 (L) 13.7 - [facility] g/dL [facility] LABORATORY Hematocrit 23.5 (L) 40.5 - [facility] 48.5 % [facility] LABORATORY MCV 89.4 82.9 - [facility] 93.1 [facility] LABORATORY MCH 30.8 27.5 - [facility] ARASELI 32.1 pg [facility] LABORATORY MCHC 34.5 32.0 - [facility] ARASELI 35.7 g/dL [facility] LABORATORY Platelets 13 145 - 357 [facility] ARASELI (Critical) x10(3)/[facility] LABORATORY RDWSD 45.2 (H) 36.0 - [facility] ARASELI 45.0 [facility] LABORATORY RDWCV 13.9 (H) 11.4 - [facility] ARASELI 13.8 % [facility] LABORATORY MPV Not Measured 7.6 - [facility] ARASELI 12.9 [facility] LABORATORY nRBC % Auto 0.8 % [facility] LABORATORY nRBC Abs Auto 0.080 (H) 0.000 - [facility] ARASELI 0.000 [facility] x10(3)/[facility] LABORATORY Specimen Anatomical Collection Method Collection Time Receive d Time (Source) Location / / Volume Laterality Blood 11/15/2021 3:45 AM 3:56 EDT AM EDT Resulting Agency Comment Spec In Lab Parviz Modi MD HEMATOLOGY ORDERABLES Performing Organization Address City/State/ZIP Code Phon e Number [address] Phosphorus (11/15/2021 3:45 AM EDT) athologist Signature Phosphorus 4.0 2.5 - 4.5 [facility] mg/dL [facility] LABORATORY Specimen Anatomical Collection Method Collection Time Receive d Time (Source) Location / / Volume Laterality Blood 11/15/2021 3:45 AM 2 3:56 EDT AM EDT Resulting Agency Comment Spec In Lab Parviz Modi MD CHEMISTRY ORDERABLES Performing Organization Address City/State/ZIP Code Phon e Number [address] Magnesium (11/15/2021 3:45 AM EDT) athologist Signature Magnesium 1.05 0.69 - 1.07 [facility] mmol/L [facility] LABORATORY Specimen Anatomical Collection Method Collection Time Receive d Time (Source) Location / / Volume Laterality Blood 11/15/2021 3:45 AM 2 3:56 EDT AM EDT Resulting Agency Comment Spec In Lab Parviz Modi MD CHEMISTRY ORDERABLES Performing Organization Address City/State/ZIP Code Phon e Number [address] (ABNORMAL) Basic Metabolic Panel (non-fasting) (11/15/2021 3:45 AM EDT) athologist Signature Glucose Lvl 150 65 - 199 [facility] mg/dL [facility] LABORATORY Comment: Diabetes: >=200 mg/dL plus symp toms BUN 30 (H) 10 - 20 mg/dL [facility] LABORATORY Creatinine 0.95 0.80 - 1.50 mg/dL [facility] LABORATORY Sodium 138 135 - 145 mmol/L [facility] LABORATORY Potassium 4.7 3.5 - 5.0 mmol/L [facility] LABORATORY Comment: Please note: ??Patients with WBC >100,00 0 may have falsely elevated Potassium levels. ??For accurate Potassium quantif ication in these patients send serum separator tube (gold top) for subsequent determinations. ??Contact the Clinical Chemistry Laboratory if there are any qu estions. Chloride 102 98 - 107 mmol/L [facility] LABORATORY CO2 24 22 - 31 mmol/L [facility] LABORATORY Anion Gap 12 5 - 15 mmol/L [facility] LABORATORY Calcium 8.6 8.5 - 10.5 mg/dL [facility] LABORATORY Estimated GFR 86 >=60 mL/min/1.73 m?? [facility] LABORATORY Comment: This patient? s estimated [...] (Source) Location / / Volume Laterality Blood 11/15/2021 3:45 AM 2 3:56 EDT AM EDT Resulting Agency Comment Spec In Lab Parviz Modi MD CHEMISTRY ORDERABLES Performing Organization Address City/State/Z[place] [address] Tacrolimus level (11/14/2021 8:46 AM EDT) P athologist Signature Tacrolimus Lvl 9.3 ng/mL [facility] LABORATORY Comment: Trough therapeutic range is 3-15 ng/mL, depending upon transplant type, time since transplantation, use of other immu nosuppressive drugs, comorbidities, and test method used. Tacrolimus concentration determined daniel g the [employer] Tacrolimus electrochemiluminescence competitive imm unoassay. Results from different samples types and methods are not interchangeable. Specimen Anatomical Collection Method Collection Time Receive d Time (Source) Location / / Volume Laterality Blood 11/14/2021 8:46 AM 2 9:43 EDT AM EDT Resulting Agency Comment Spec In Lab Parviz Modi MD CHEMISTRY ORDERABLES Performing Organization Address City/State/ZIP Code Phon e Number [address] Scan, Peripheral Blood (11/14/2021 4:20 AM EDT) [facility] Method Time Signature Plat Estimate Decreased [facility] LABORATORY RBC Morphology Abnormal [facility] LABORATORY Ovalocytes 1-5 /HPF [facility] LABORATORY Tear Drop Cells 1-5 /HPF [facility] LABORATORY Toxic Present [facility] LABORATORY Dohle Bodies Present [facility] LABORATORY Giant Platelets Less than 1 /HPF [facility] LABORATORY Specimen Anatomical Collection Method Collection Time Receive d Time (Source) Location / / Volume Laterality Blood 11/14/2021 4:20 AM 2 4:28 EDT AM EDT Resulting Agency Comment Spec In Lab Parviz Modi MD HEMATOLOGY ORDERABLES Performing Organization Address City/[facility]/ZIP Code Phon e Number [address] (ABNORMAL) Differential, Automated (11/14/2021 4:20 AM EDT) [facility] Method Time Signature Neutrophils % 58.2 % [facility] LABORATORY Neutr Abs (ANC) 5.16 1.70 - [facility] 6.10 [facility] x10(3)/[facility] LABORATORY Lymphocytes % 4.1 % [facility] LABORATORY Lymphocytes Abs 0.4 (L) 0.9 - 3.2 [facility] x10(3)/[facility] LABORATORY Monocytes % 20.5 % [facility] LABORATORY Monocyte Abs 1.8 (H) 0.3 - 0.9 [facility] x10(3)/[facility] LABORATORY Eosinophils % 0.1 % [facility] LABORATORY Eosinophils Abs 0.0 0.0 - 0.4 [facility] x10(3)/[facility] LABORATORY Basophils % 0.7 % [facility] LABORATORY Basophils Abs 0.1 0.0 - 0.1 [facility] x10(3)/[facility] LABORATORY Immature Gran % 16.40 % [facility] LABORATORY Comment: Immature granulocytes(IG's)percentage an d absolute count will include metamyelocytes, myelocytes, and promyelo cytes. Blood smears from CBCs yielding IG's will be scanned manually for concor dance. If this scan disagrees with the automated IG or if promyelocytes are not ed, a manual differential will be performed. Zara Gran Abs 1.45 (H) 0.00 - 0.04 x10(3)/[facility] LABORATORY Specimen Anatomical Collection Method Collection Time Receive d Time (Source) Location / / Volume Laterality Blood 11/14/2021 4:20 AM 4:28 EDT AM EDT Resulting Agency Comment Spec In Lab Parviz Modi MD HEMATOLOGY ORDERABLES Performing Organization Address City/State/Z[place] [address] (ABNORMAL) Hemogram (11/14/2021 4:20 AM EDT) [facility] gist Method Time Signature WBC 8.9 4.0 - 9.5 [facility] x10(3)/[facility] LABORATORY RBC 2.58 (L) 4.58 - [facility] 5.54 [facility] x10(6)/[facility] L LABORATORY Hemoglobin 8.0 (L) 13.7 - [facility] 16.5 g/dL [facility] LABORATORY Hematocrit 23.0 (L) 40.5 - [facility] 48.5 % [facility] LABORATORY MCV 89.1 82.9 - [facility] 93.1 fL [facility] LABORATORY MCH 31.0 27.5 - [facility] 32.1 pg [facility] LABORATORY MCHC 34.8 32.0 - [facility] 35.7 g/dL [facility] LABORATORY Platelets 11 145 - 357 [facility] ([facility] x10(3[facility] LABORATORY RDWSD 45.8 (H) 36.0 - [facility] 45.0 [facility] LABORATORY RDWCV 14.1 (H) 11.4 - [facility] ARASELI 13.8 % [facility] LABORATORY MPV Not Measured 7.6 - [facility] ARASELI 12.9 [facility] LABORATORY nRBC % Auto 0.5 % [facility] LABORATORY nRBC Abs Auto 0.040 (H) 0.000 - [facility]ERRE[facility]ASELI 0.000 [facility] x10(3)/[facility] L LABORATORY Specimen Anatomical Collection Method Collection Time Receive d Time (Source) Location / / Volume Laterality Blood 11/14/2021 4:20 AM 2 4:28 EDT AM EDT Resulting Agency Comment Spec In Lab Parviz Modi MD HEMATOLOGY ORDERABLES Performing Organization Address City/[facility]/ZIP Code Phon e Number [address] Hepatic Function Panel (11/14/2021 4:20 AM EDT) athologist Signature Total Protein 6.4 6.1 - 8.0 [facility] ARASELI g/dL [facility] LABORATORY Albumin 3.3 3.2 - 5.2 [facility] ARASELI g/dL [facility] LABORATORY AST 29 0 - 39 [facility]ORATORY ALT 22 0 - 55 [facility] ARASELI unit/L [facility] LABORATORY Alk Phos 130 40 - 130 [facility] LABORATORY Total 0.3 0.2 - 1.3 [facility] Bilirubin mg/dL [facility] LABORATORY Bili, Direct 0.1 0.0 - 0.3 [facility] ARASELI mg/dL [facility] LABORATORY Comment: Specimen ultracentrifuged due t o gross lipemia Specimen Anatomical Collection Method Collection Time Receive d Time (Source) Location / / Volume Laterality Blood 11/14/2021 4:20 AM 2 4:28 EDT AM EDT Resulting Agency Comment Spec In Lab Parviz Modi MD CHEMISTRY ORDERABLES Performing Organization Address City/[facility]/ZIP Code Phon e Number [address] Phosphorus (11/14/2021 4:20 AM EDT) P athologist Signature Phosphorus 3.6 2.5 - 4.5 [facility] LABORATORY Specimen Anatomical Collection Method Collection Time Receive d Time (Source) Location / / Volume Laterality Blood 11/14/2021 4:20 AM 2 4:28 EDT AM EDT Resulting Agency Comment Spec In Lab Parviz Modi MD CHEMISTRY ORDERABLES Performing Organization Address City/[facility]/ZIP [place] [address] (ABNORMAL) Magnesium (11/14/2021 4:20 AM EDT) athologist Signature Magnesium 1.18 (H) 0.69 - 1.07 [facility] mmol/L [facility] LABORATORY Specimen Anatomical Collection Method Collection Time Receive d Time (Source) Location / / Volume Laterality Blood 11/14/2021 4:20 AM 2 4:28 EDT AM EDT Resulting Agency Comment Spec In Lab Parviz Modi MD CHEMISTRY ORDERABLES Performing Organization Address City/[facility]/ZIP [place] [address] (ABNORMAL) Basic Metabolic Panel (non-fasting) (11/14/2021 4:20 AM EDT) athologist Signature Glucose Lvl 134 65 - 199 [facility] mg/dL [facility] LABORATORY Comment: Diabetes: >=200 mg/dL plus symp toms BUN 27 (H) 10 - 20 mg/dL [facility] LABORATORY Creatinine 0.93 0.80 - 1.50 mg/dL [facility] LABORATORY Sodium 140 135 - 145 mmol/L [facility] LABORATORY Potassium 4.8 3.5 - 5.0 mmol/L [facility] LABORATORY Comment: result rechecked-EG Please note: ??Patients with WBC >100,00 0 may have falsely elevated Potassium levels. ??For accurate Potassium quantif ication in these patients send serum separator tube (gold top) for subsequent determinations. ??Contact the Clinical Chemistry Laboratory if there are any qu estions. Chloride 102 98 - 107 mmol/L [facility] LABORATORY CO2 25 22 - 31 mmol/L [facility] LABORATORY Anion Gap 13 5 - 15 mmol/L [facility] LABORATORY Calcium 8.5 8.5 - 10.5 mg/dL [facility] LABORATORY Estimated GFR 88 >=60 mL/min/1.73 m?? [facility] LABORATORY Comment: This patient? s estimated glomerular filtration rate (eGFR) is between 88 mL/min/1.73 m2 (patients with less muscl e mass per kg body weight) and 102 mL/min/1.73 m2 (patients with more muscl e [...] (Source) Location / / Volume Laterality Blood 11/14/2021 4:20 AM 4:28 EDT AM EDT Resulting Agency Comment Spec In Lab Parviz Modi MD CHEMISTRY ORDERABLES Performing Organization Address City/State/ZIP [place] [address] (ABNORMAL) Differential, Manual (11/13/2021 3:25 AM EDT) [facility] gist Method Time Signature Neutrophil % 76 % [facility] LABORATORY Monocyte % 16 % [facility] LABORATORY Metamyelo % 1 % [facility] LABORATORY Promyelocyte % 7 % [facility] LABORATORY Neutrophil Abs 7.2 (H) 1.7 - 6.1 [facility] x10(3)/[facility] LABORATORY Neutr Abs (ANC) 7.17 (H) 1.70 - [facility] 6.10 [facility] x10(3)/[facility] LABORATORY Monocyte Abs 1.5 (H) 0.3 - 0.9 [facility] ARASELI x10(3)/[facility] LABORATORY Metamyelo Abs 0.1 (H) 0.0 - 0.0 [facility] ARASELI x10(3)/[facility] LABORATORY Promyelo Abs 0.7 (H) 0.0 - 0.0 [facility] LABORATORY Tot Diff Cell Ct 100 [facility] LABORATORY Plat Estimate Decreased [facility] LABORATORY RBC Morphology Abnormal [facility] Ovalocytes 1-5 /HPF [facility] Tear Drop Cells 1-5 /HPF [facility] LABORATORY Toxic Present [facility] LABORATORY Specimen Anatomical Collection Method Collection Time Receive d Time (Source) Location / / Volume Laterality Blood 11/13/2021 3:25 AM 3:36 EDT AM EDT Resulting Agency Comment Spec In Lab Parviz Modi MD HEMATOLOGY ORDERABLES Performing Organization Address City/State/Z[place] [address] (ABNORMAL) Hemogram (11/13/2021 3:25 AM EDT) [facility] gist Method Time Signature WBC 9.4 4.0 - 9.5 [facility] ARASELI x10(3)/[facility] LABORATORY RBC 2.63 (L) 4.58 - [facility]EL[facility] 5.54 [facility] x10(6)/[facility] LABORATORY Hemoglobin 8.0 (L) 13.7 - [facility] 16.5 g/dL [facility] LABORATORY Hematocrit 23.1 (L) 40.5 - [facility] 48.5 % [facility] LABORATORY MCV 87.8 82.9 - [facility] ARASELI 93.1 fL [facility] LABORATORY MCH 30.4 27.5 - J[facility] ARASELI 32.1 pg [facility] LABORATORY MCHC 34.6 32.0 - [facility] ARASELI 35.7 g/dL [facility] LABORATORY Platelets 12 145 - 357 [place] (Critical) x10(3)/[facility] LABORATORY RDWSD 45.4 (H) 36.0 - JIA ARASELI 45.0 [facility] LABORATORY RDWCV 14.1 (H) 11.4 - [facility] 13.8 % [facility] LABORATORY MPV Not Measured 7.6 - [facility] ARASELI 12.9 [facility] LABORATORY nRBC % Auto 0.3 % [facility] LABORATORY nRBC Abs Auto 0.030 (H) 0.000 - [place] 0.000 [facility] x10(3)/[facility] L LABORATORY Specimen Anatomical Collection Method Collection Time Receive d Time (Source) Location / / Volume Laterality Blood 11/13/2021 3:25 AM 2 3:36 EDT AM EDT Resulting Agency Comment Spec In Lab Parviz Modi MD HEMATOLOGY ORDERABLES Performing Organization Address City/[facility]/ZIP [place] [address] Phosphorus (11/13/2021 3:25 AM EDT) athologist Signature Phosphorus 2.8 2.5 - 4.5 [facility] LABORATORY Specimen Anatomical Collection Method Collection Time Receive d Time (Source) Location / / Volume Laterality Blood 11/13/2021 3:25 AM 2 3:36 EDT AM EDT Resulting Agency Comment Spec In Lab Parviz Modi MD CHEMISTRY ORDERABLES Performing Organization Address City/[facility]/ZIP Code Phon e Number [address] Magnesium (11/13/2021 3:25 AM EDT) P athologist Signature Magnesium 0.98 0.69 - 1.07 [facility] [place]I mmol/L [facility] LABORATORY Specimen Anatomical Collection Method Collection Time Receive d Time (Source) Location / / Volume Laterality Blood 11/13/2021 3:25 AM 2 3:36 EDT AM EDT Resulting Agency Comment Spec In Lab Parviz Modi MD CHEMISTRY ORDERABLES Performing Organization Address City/[facility]/ZIP [place] [address] (ABNORMAL) Basic Metabolic Panel (non-fasting) (11/13/2021 3:25 AM EDT) P athologist Signature Glucose Lvl 120 65 - 199 [facility] mg/dL [facility] LABORATORY Comment: Diabetes: >=200 mg/dL plus symp toms BUN 24 (H) 10 - 20 mg/dL [facility] LABORATORY Creatinine 0.95 0.80 - 1.50 mg/dL [facility] LABORATORY Sodium 137 135 - 145 mmol/L [facility] LABORATORY Potassium 3.8 3.5 - 5.0 mmol/L [facility] LABORATORY Comment: Please note: ??Patients with WBC >100,00 0 may have falsely elevated Potassium levels. ??For accurate Potassium quantif ication in these patients send serum separator tube (gold top) for subsequent determinations. ??Contact the Clinical Chemistry Laboratory if there are any qu estions. Chloride 99 98 - 107 mmol/L [facility] LABORATORY CO2 26 22 - 31 mmol/L [facility] LABORATORY Anion Gap 12 5 - 15 mmol/L [facility] LABORATORY Calcium 8.4 (L) 8.5 - 10.5 mg/dL [facility] LABORATORY Estimated GFR 86 >=60 mL/min/1.73 m?? [facility] LABORATORY Comment: This patient? s estimated [...] (Source) Location / / Volume Laterality Blood 11/13/2021 3:25 AM 2 3:36 EDT AM EDT Resulting Agency Comment Spec In Lab Parviz Modi MD CHEMISTRY ORDERABLES Performing Organization Address City/[facility]/ZIP [place] [address] Scan, Peripheral Blood (11/12/2021 3:50 AM EDT) [facility] Method Time Signature Plat Estimate Decreased [facility] LABORATORY RBC Morphology Abnormal [facility] LABORATORY Macrocytes 1-5 /HPF [facility] LABORATORY Ovalocytes 1-5 /HPF [facility] LABORATORY Toxic Present [facility] LABORATORY Vacuolated Neut Present [facility] LABORATORY Specimen Anatomical Collection Method Collection Time Receive d Time (Source) Location / / Volume Laterality Blood 11/12/2021 3:50 AM 4:00 EDT AM EDT Resulting Agency Comment Spec In Lab Parviz Modi MD HEMATOLOGY ORDERABLES Performing Organization Address City/[facility]/ZIP [place] [address] (ABNORMAL) Differential, Automated (11/12/2021 3:50 AM EDT) [facility] Method Time Signature Neutrophils % 66.2 % [facility] LABORATORY Neutr Abs (ANC) 4.78 1.70 - [facility] 6.10 [facility] x10(3)/[facility] LABORATORY Lymphocytes % 1.0 % [facility] LABORATORY Lymphocytes Abs 0.1 (L) 0.9 - 3.2 [facility] x10(3)/[facility] LABORATORY Monocytes % 19.4 % [facility] LABORATORY Monocyte Abs 1.4 (H) 0.3 - 0.9 [facility] x10(3)/[facility] LABORATORY Eosinophils % 0.3 % [facility] LABORATORY Eosinophils Abs 0.0 0.0 - 0.4 [facility] x10(3)/[facility] LABORATORY Basophils % 0.1 % [facility] LABORATORY Basophils Abs 0.0 0.0 - 0.1 [facility] x10(3)/[facility] LABORATORY Immature Gran % 13.00 % [facility] LABORATORY Comment: Immature granulocytes(IG's)percentage an d absolute count will include metamyelocytes, myelocytes, and promyelo cytes. Blood smears from CBCs yielding IG's will be scanned manually for concor dance. If this scan disagrees with the automated IG or if promyelocytes are not ed, a manual differential will be performed. Zara Gran Abs 0.94 (H) 0.00 - 0.04 x10(3)/[facility] LABORATORY Specimen Anatomical Collection Method Collection Time Receive d Time (Source) Location / / Volume Laterality Blood 11/12/2021 3:50 AM 4:00 EDT AM EDT Resulting Agency Comment Spec In Lab Parviz Modi MD HEMATOLOGY ORDERABLES Performing Organization Address City/State/[place] [address] (ABNORMAL) Hemogram (11/12/2021 3:50 AM EDT) [facility] gist Method Time Signature WBC 7.2 4.0 - 9.5 [facility] x10(3)/[facility] LABORATORY RBC 2.62 (L) 4.58 - [facility] 5.54 [facility] x10(6)/[facility] L LABORATORY Hemoglobin 8.0 (L) 13.7 - [facility] 16.5 g/dL [facility] LABORATORY Hematocrit 22.8 (L) 40.5 - [facility] [place] 48.5 % [facility] LABORATORY MCV 87.0 82.9 - [facility] [place] 93.1 [facility] LABORATORY MCH 30.5 27.5 - [facility] [place] 32.1 pg [facility] LABORATORY MCHC 35.1 32.0 - [facility] 35.7 g/dL [facility] LABORATORY Platelets 16 145 - 357 [facility] (Critical[facility] x10(3)/[facility] LABORATORY RDWSD 45.7 (H) 36.0 - [facility] 45.0 [facility] LABORATORY RDWCV 14.3 (H) 11.4 - [facility] 13.8 % [facility] LABORATORY MPV Not Measured 7.6 - [facility] 12.9 [facility] LABORATORY nRBC % Auto 0.6 % [facility] LABORATORY nRBC Abs Auto 0.040 (H) 0.000 - JIA MARX 0.000 [facility] x10(3)/[facility] L LABORATORY Specimen Anatomical Collection Method Collection Time Receive d Time (Source) Location / / Volume Laterality Blood 11/12/2021 3:50 AM 2 4:00 EDT AM EDT Resulting Agency Comment Spec In Lab Parviz Modi MD HEMATOLOGY ORDERABLES Performing Organization Address City/State/ZIP Code Phon e Number [address] Phosphorus (11/12/2021 3:50 AM EDT) P athologist Signature Phosphorus 2.5 2.5 - 4.5 [facility] [place] mg/dL [facility] LABORATORY Specimen Anatomical Collection Method Collection Time Receive d Time (Source) Location / / Volume Laterality Blood 11/12/2021 3:50 AM 2 4:00 EDT AM EDT Resulting Agency Comment Spec In Lab Parviz Modi MD CHEMISTRY ORDERABLES Performing Organization Address City/State/ZIP Code Phon e Number [address] Magnesium (11/12/2021 3:50 AM EDT) P athologist Signature Magnesium 0.91 0.69 - 1.07 [facility]/L [facility] LABORATORY Specimen Anatomical Collection Method Collection Time Receive d Time (Source) Location / / Volume Laterality Blood 11/12/2021 3:50 AM 2 4:00 EDT AM EDT Resulting Agency Comment Spec In Lab Parviz Modi MD CHEMISTRY ORDERABLES Performing Organization Address City/[facility]/ZIP Code Phon e Number [address] (ABNORMAL) Basic Metabolic Panel (non-fasting) (11/12/2021 3:50 AM EDT) P athologist Signature Glucose Lvl 118 65 - 199 [facility]/dL [facility] LABORATORY Comment: Diabetes: >=200 mg/dL plus symp toms BUN 22 (H) 10 - 20 mg/dL [facility] LABORATORY Creatinine 0.94 0.80 - 1.50 mg/dL [facility] LABORATORY Sodium 138 135 - 145 mmol/L [facility] LABORATORY Potassium 3.9 3.5 - 5.0 mmol/L [facility] LABORATORY Comment: Please note: ??Patients with WBC >100,00 0 may have falsely elevated Potassium levels. ??For accurate Potassium quantif ication in these patients send serum separator tube (gold top) for subsequent determinations. ??Contact the Clinical Chemistry Laboratory if there are any qu estions. Chloride 99 98 - 107 mmol/L [facility] LABORATORY CO2 27 22 - 31 mmol/L [facility] LABORATORY Anion Gap 12 5 - 15 mmol/L [facility] LABORATORY Calcium 8.7 8.5 - 10.5 mg/dL [facility] LABORATORY Estimated GFR 87 >=60 mL/min/1.73 m?? [facility] LABORATORY Comment: This patient? s estimated glomerular filtration rate (eGFR) is between 87 mL/min/1.73 m2 (patients with less muscl e mass per kg body weight) and 101 mL/min/1.73 m2 (patients with more muscl e [...] (Source) Location / / Volume Laterality Blood 11/12/2021 3:50 AM 2 4:00 EDT AM EDT Resulting Agency Comment Spec In Lab Parviz Modi MD CHEMISTRY ORDERABLES Performing Organization Address City/State/[place] [address] ECHOCARDIOGRAM COMPLETE (11/11/2021 3:48 PM EDT) Specimen (Source) Anatomical Collection Method Collection Time Re ceived Time Location / / Volume Laterality 11/11/2021 2:02 PM EDT Narrative [facility] - 11/11/2021 4:11 PM EDT ?[facility] ?[address] ? [place] [address] ?Voice: ?Fax: ? Echocardiogram Report Name: LUIS MANUEL MOBLEY JR. ?Study Date: 11/11/2021 02:02 PMBP: 142/88 mmHg ? Patient Location: [place] [address] A HR: 88 : 1960 ? Height: 177 cm ? Account: [id number] Age: 61 yrs ? Weight: 101 kg Gender: Male ?BSA: 2.2 m2 Ordering Physician: RENAY PONCE Referring Physician: BEATRIZ MAURICE Performed By: Jaqueline Chan RDCS Reason For Study: Paroxysmal atrial fibr illation Exam Location: [facility]. Interpretation Summary Left ventricular systolic function is no rmal. The left ventricular ejection fraction is 67% by Tony's biplane. Th ere are no segmental wall motion abnormalities. The left atrium is normal. There is no e vidence for a patent foramen ovale. There is no evidence for a patent foramen oval e visualized with agitated saline. No significant valvular abnormalities. The aortic root at the level of the sinu ses of Valsalva is mildly dilated. 3.8 cm. The ascending aorta is mildly dilated. 3 .7 cm. Other details as noted below. Procedure Complete-[id number]. Left Ventricle Left ventricle is of normal size. No mem branous ventricular septal defect. Wall thickness is mildly increased. Left vent ricular systolic function is normal. The left ventricular ejection fraction is 67 % by Tony's biplane. There are no segmental wall motion abnormalities. Right Ventricle The right ventricle is of normal size. R ight ventricular systolic function is normal. Left Atrium The left atrium is normal. There is no e vidence for a patent foramen ovale. There is no evidence for a patent foramen oval e visualized with agitated saline. Right Atrium The right atrium is normal. Aortic Valve The aortic valve is structurally normal. There is no aortic stenosis. There is no aortic regurgitation. Mitral Valve The mitral valve is structurally and fun ctionally normal. There is trace mitral regurgitation. Tricuspid Valve The tricuspid valve is structurally norm al. There is mild tricuspid regurgitation. Pulmonic Valve The pulmonic valve appears to be structu rally and functionally normal. Great Arteries The aortic root at the level of the sinu ses of Valsalva is mildly dilated. 3.8 cm. The ascending aorta is mildly dilated. 3 .7 cm. Venous Inferior vena cava is normal in size. In ferior vena cava collapse greater than 50% with respiration. Pericardium/Pleural The pericardium appears normal. A perica rdial fat pad is present. Hemodynamics The peak right ventricular systolic pres sure is 31 mmHg. The estimated right atrial pressure is 3mmHg. Left ventricul ar diastolic function is normal. Ejection Fraction ?2D Measurem ents ? Volumes LV Biplane EF: 67.3 % ? IVSd: 1.2 cm ? LA Volume Index: ?L VIDd: 5.0 cm ?L VIDs: 3.2 cm ?30.2 ml/m2 ?L VPWd: 1.2 cm ?EDV Biplane: 138.4 ml ? EDV Biplane Index: 63.6 ?L V mass(C)d: 225.9 grams ? ESV Biplane: 45.3 ml ?L V mass(C)dI: 103.8 grams/m2 ?? ESV Biplane Index: 20.8 ?A o root diam: 3.8 cm ? SV(LVOT): 68.9 ml ?A o root diam index: 1.7 ?LV Stroke Volume: 68.9 ml ?a sc Aorta Diam: 3.7 cm ?L VOT diam: 2.1 cm ?SI(LVOT): 31.7 ml/m2 Doppler TR max kari: 256.8 cm/sec Ao valve max: 7.4 mmHg MV E max kari: 78.2 cm/sec MV A max kari: 75.0 cm/sec MV E/A: 1.0 MV dec time: 0.19 sec Lat Peak E' Kari: 9.5 cm/sec E/ e' (lat): 8.2 Med Peak E' Kari: 8.2 cm/sec E/e' (med): 9.6 E/e' Average: 8.9 I ?WMSI = 1.00 ? % Normal = 1 00 ?Segments ??Size X - Cannot ?2 - ?4 - ?1-2 ? small Interpret ?1 - Normal ?? Hypokinetic 3 - Akinetic Dyskinetic ?? 3-5 ? moderate 5 - ? 6-14 ?large Aneurysmal ?15-16 ?? diffuse Procedure Etienne Saavedra MD - 11/11/2021Forma tting of this note might be different from the original. [facility] [address] [place] [address] Voice: Fax: Echocardiogram Report Name: LUIS MANUEL MOBLEY JR. Study Date: 02:02 PMBP: 142/88 mmHg Patient Location: [place] [address] A HR: 88 : 1960 Height: 177 cm Account: [id number] Age: 61 yrs Weight: 101 kg Gender: Male BSA: 2.2 m2 Ordering Physician: RENAY PONCE Referring Physician: BEATRIZ MAURICE Performed By: Jaqueline Chan RDCS Reason For Study: Paroxysmal atrial fibr illation Exam Location: [facility]. Interpretation Summary Left ventricular systolic function is no rmal. The left ventricular ejection fraction is 67% by Tony's biplane. Th ere are no segmental wall motion abnormalities. The left atrium is normal. There is no e vidence for a patent foramen ovale. There is no evidence for a patent foramen oval e visualized with agitated saline. No significant valvular abnormalities. The aortic root at the level of the sinu ses of Valsalva is mildly dilated. 3.8 cm. The ascending aorta is mildly dilated. 3 .7 cm. Other details as noted below. Procedure Complete-[id number]. Left Ventricle Left ventricle is of normal size. No mem branous ventricular septal defect. Wall thickness is mildly increased. Left vent ricular systolic function is normal. The left ventricular ejection fraction is 67 % by Tony's biplane. There are no segmental wall motion abnormalities. Right Ventricle The right ventricle is of normal size. R ight ventricular systolic function is normal. Left Atrium The left atrium is normal. There is no e vidence for a patent foramen ovale. There is no evidence for a patent foramen oval e visualized with agitated saline. Right Atrium The right atrium is normal. Aortic Valve The aortic valve is structurally normal. There is no aortic stenosis. There is no aortic regurgitation. Mitral Valve The mitral valve is structurally and fun ctionally normal. There is trace mitral regurgitation. Tricuspid Valve The tricuspid valve is structurally norm al. There is mild tricuspid regurgitation. Pulmonic Valve The pulmonic valve appears to be structu rally and functionally normal. Great Arteries The aortic root at the level of the sinu ses of Valsalva is mildly dilated. 3.8 cm. The ascending aorta is mildly dilated. 3 .7 cm. Venous Inferior vena cava is normal in size. In ferior vena cava collapse greater than 50% with respiration. Pericardium/Pleural The pericardium appears normal. A perica rdial fat pad is present. Hemodynamics The peak right ventricular systolic pres sure is 31 mmHg. The estimated right atrial pressure is 3mmHg. Left ventricul ar diastolic function is normal. Ejection Fraction 2D Measurements Volume s LV Biplane EF: 67.3 % IVSd: 1.2 cm LA Vo lume Index: LVIDd: 5.0 cm LVIDs: 3.2 cm 30.2 ml/m2 LVPWd: 1.2 cm EDV Biplane: 138.4 ml EDV Biplane Index: 63.6 LV mass(C)d: 225.9 grams ESV Biplane: 4 5.3 ml LV mass(C)dI: 103.8 grams/m2 ESV Biplan e Index: 20.8 Ao root diam: 3.8 cm SV(LVOT): 68.9 ml Ao root diam index: 1.7 LV Stroke Volum e: 68.9 ml asc Aorta Diam: 3.7 cm LVOT diam: 2.1 cm SI(LVOT): 31.7 ml/m2 Doppler TR max kari: 256.8 cm/sec Ao valve max: 7.4 mmHg MV E max kari: 78.2 cm/sec MV A max kari: 75.0 cm/sec MV E/A: 1.0 MV dec time: 0.19 sec Lat Peak E' Kari: 9.5 cm/sec E/ e' (lat): 8.2 Med Peak E' Kari: 8.2 cm/sec E/e' (med): 9.6 E/e' Average: 8.9 I WMSI = 1.00 % Normal = 100 Segments Size X - Cannot 2 - 4 - 1-2 small Interpret 1 - Normal Hypokinetic 3 - Stacie netic Dyskinetic 3-5 moderate 5 - 6-14 large Aneurysmal 15-16 diffuse Renay Ponce MD ECHO ORDERABLES Performing Organization Address City/State/ZIP Code Phon e Number [facility] (ABNORMAL) Platelet count (11/11/2021 2:00 PM EDT) P athologist Signature Platelets 22 (L) 145 - 357 [facility] x10(3)/[facility] LABORATORY Plat Immature 4.7 0.0 - 7.4 JIA ARASELI % % [facility] LABORATORY Comment: Limitation of the Immature Platelet Frac tion (IPF)-May be less reliable when the platelet count is less than 97w855/u L due to statistical imprecision. The IPF value provides an assessment of the Bone Marrow production status. ??It is useful in differentiating Thrombocyto penia caused by platelet destruction/consumption versus decreased production. It also helps to determine the imminent release of platelets and ca n be therefore a helpful parameter in Chemotherapy and Bone marrow transplant patients. ELEVATED IPF value: ?? When the bone marrow is in a state of over production such as when increased destruction and consumption are the unde rlying issue. ?? When the marrow is recovering post ch emotherapy or bone marrow transplant. LOW to NORMAL IPF value: ?? When the bone marrow in not respondin g and is in a decreased state of production. References: [employer] The Clinical Value of the Immature Platelet Fraction (IPF) in Cell Recovery Document Number [id number] 01/2011 [employer] The Role of the Imm ature Platelet Fraction (IPF) in the Differential Diagnosis of Thrombocytopen ia, Document [id number] V05 P012/28 Specimen Anatomical Collection Method Collection Time Receive d Time (Source) Location / / Volume Laterality Blood 11/11/2021 2:00 PM 2 2:23 EDT PM EDT Resulting Agency Comment Spec In Lab Parviz Modi MD HEMATOLOGY ORDERABLES Performing Organization Address City/[facility]/ZIP Code Phon e Number [address] Prepare Platelets, Apheresis (11/11/2021 8:50 AM EDT) P athologist Signature Dispensed? Yes [facility] LABORATORY Specimen Anatomical Collection Method Collection Time Receive d Time (Source) Location / / Volume Laterality Blood 11/11/2021 8:50 AM 2 8:49 EDT AM EDT Luis Manuel Goodrich Jr., MD BLOOD BANK ORDERABLES Performing Organization Address City/[facility] Phon e Number [address] Tacrolimus level (11/11/2021 8:48 AM EDT) P athologist Signature Tacrolimus Lvl 7.8 ng/mL [facility] LABORATORY Comment: Trough therapeutic range is [...] (Source) Location / / Volume Laterality Blood 11/11/2021 8:48 AM 2 9:06 EDT AM EDT Resulting Agency Comment Spec In Lab Parviz Modi MD CHEMISTRY ORDERABLES Performing Organization Address City/[facility]/ZIP Code Phon e Number [address] Transfuse RBC (11/11/2021 7:52 AM EDT) Luis Manuel Goodrich Jr., MD NURSING TREATMENT ORDERABLES - BLOOD ADMIN Transfuse RBC (11/11/2021 7:52 AM EDT) Luis Manuel Goodrich Jr., MD NURSING TREATMENT ORDERABLES - BLOOD ADMIN Prepare RBC (11/11/2021 5:55 AM EDT) athologist Signature Dispensed? Yes [facility] LABORATORY Specimen Anatomical Collection Method Collection Time Receive d Time (Source) Location / / Volume Laterality Blood 11/11/2021 5:55 AM 2 5:51 EDT AM EDT Luis Manuel Goodrich Jr., MD BLOOD BANK ORDERABLES Performing Organization Address City/[facility]/ZIP Code Phon e Number [address] Type and Screen Validity (11/11/2021 3:50 AM EDT) [facility] Method Time Signature T&S only valid [facility] LABORATORY Comment: This Type and Screen result is only valid at the [facility] Specimen Anatomical Collection Method Collection Time Receive d Time (Source) Location / / Volume Laterality Blood Venous Draw / 11/11/2021 3:50 AM 11/12/19 22 4:39 Unknown EDT AM EDT Resulting Agency Comment Spec In Lab Christina Medrano MD BLOOD BANK ORDERABLES Performing Organization Address City/[facility]/ZIP Code Phon e Number [address] ABORH Recheck Status (11/11/2021 3:50 AM EDT) [facility] Signature ABORH Type Completed [facility] LABORATORY Specimen Anatomical Collection Method Collection Time Receive d Time (Source) Location / / Volume Laterality Blood Venous Draw / 11/11/2021 3:50 AM 11/12/19 4:39 Unknown EDT AM EDT Resulting Agency Comment Spec In Lab Christina Medrano MD BLOOD BANK ORDERABLES Performing Organization Address City/State/Z[place] [address] (ABNORMAL) Differential, Manual (11/11/2021 3:50 AM EDT) [facility] [employer] Method Time Signature Neutrophil % 76 % [facility] LABORATORY Lymphocyte % 1 % [facility] LAB[facility]ORY Monocyte % 13 % [facility] Basophil % 1 % [facility] Myelocyte % 1 % [facility] LAB[facility]ORY Promyelocyte % 7 % [facility] LABORATORY Blasts % 1 % [facility] LABORATORY Neutrophil Abs 1.6 (L) 1.7 - 6.1 [facility] x10(3)/[facility] LABORATORY Neutr Abs (ANC) 1.64 (L) 1.70 - [facility] 6.10 [facility] x10(3)[facility] LABORATORY Lymphocyte Abs 0.0 (L) 0.9 - 3.2 [facility] x10(3)/[facility] LABORATORY Monocyte Abs 0.3 0.3 - 0.9 [facility] x10(3)/[facility] LABORATORY Basophil Abs 0.0 0.0 - 0.1 [facility] x10(3)/[facility] LABORATORY Myelocyte Abs 0.0 0.0 - 0.0 [facility] x10(3)[facility] LABORATORY Promyelo Abs 0.2 (H) 0.0 - 0.0 [facility] x10(3)/[facility] LABORATORY Blast Abs 0.0 0.0 - 0.0 [facility] x10(3)[facility] LABORATORY Tot Diff Cell Ct 100 [facility] LABORATORY Plat Estimate Decreased [facility] LABORATORY RBC Morphology Normal [facility] LABORATORY Toxic Present [facility] LABORATORY Dohle Bodies Present [facility] LABORATORY Specimen Anatomical Collection Method Collection Time Receive d Time (Source) Location / / Volume Laterality Blood 11/11/2021 3:50 AM 4:27 EDT AM EDT Resulting Agency Comment Spec In Lab Parviz Modi MD HEMATOLOGY ORDERABLES Performing Organization Address City/[facility]/ZIP [facility] Phon e Number [address] Antibody screen manual (11/11/2021 3:50 AM EDT) Analysis Performed At Patho logist Time Signature AB Screen Negative [facility] LABORATORY Specimen Anatomical Collection Method Collection Time Receive d Time (Source) Location / / Volume Laterality Blood Venous Draw / 11/11/2021 3:50 AM 11/12/19 22 4:39 Unknown EDT AM EDT Resulting Agency Comment Spec In Lab Christina Medrano MD BLOOD BANK ORDERABLES Performing Organization Address City/[facility]/ZIP [place] [address] ABORh Type Manual (11/11/2021 3:50 AM EDT) Patholo gist Method Time Signature Expires at 11/14/2021 [facility] [id number] on: [facility] LABORATORY ABORh Type O Pos [facility] LABORATORY Comment: 11/11/2021 05:23 ??[facility] Allogeneic Transplant Recipient: 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 Recipient pre-Transplant ABORH: ??O Pos Donor ABORH: ??O Neg Any questions/concerns call Ext [phone]. Specimen Anatomical Collection Method Collection Time Receive d Time (Source) Location / / Volume Laterality Blood Venous Draw / 11/11/2021 3:50 AM 11/12/19 22 4:39 Unknown EDT AM EDT Resulting Agency Comment Spec In Lab Christina Medrano MD BLOOD BANK ORDERABLES Performing Organization Address City/[facility]/ZIP [place] [address] (ABNORMAL) Hemogram (11/11/2021 3:50 AM EDT) [facility] Method Time Signature WBC 2.2 (L) 4.0 - 9.5 [facility] LABORATORY RBC 2.17 (L) 4.58 - JIA ARASELI 5.54 [facility] x10(6)/[facility] LABORATORY Hemoglobin 6.7 (L) 13.7 - [facility] 16.[facility] g/dL [facility] LABORATORY Hematocrit 19.4 (L) 40.5 - [facility] 48.5 % [facility] LABORATORY MCV 89.4 82.9 - [facility] 93.1 [facility] LABORATORY MCH 30.9 27.5 - [facility] 32.1 pg [facility] LABORATORY MCHC 34.5 32.0 - [facility] 35.7 g/dL [facility] LABORATORY Platelets 16 145 - 357 [facility] (Critical) x10(3)/[facility] LABORATORY RDWSD 44.3 36.0 - [facility] 45.0 [facility] LABORATORY RDWCV 13.5 11.4 - [facility] 13.8 % [facility] LABORATORY MPV Not Measured 7.6 - [facility] 12.9 [facility] LABORATORY nRBC % Auto 1.9 % [facility] LABORATORY nRBC Abs Auto 0.040 (H) 0.000 - [facility] ARASELI 0.000 [facility] x10(3)/[facility] LABORATORY Specimen Anatomical Collection Method Collection Time Receive d Time (Source) Location / / Volume Laterality Blood 11/11/2021 3:50 AM 4:27 EDT AM EDT Resulting Agency Comment Spec In Lab Parviz Modi MD HEMATOLOGY ORDERABLES Performing Organization Address City/State/[place] [address] (ABNORMAL) Hepatic Function Panel (11/11/2021 3:50 AM EDT) P athologist Signature Total Protein 6.1 6.1 - 8.0 IJA ARASELI g/dL [facility] LABORATORY Albumin 2.9 (L) 3.2 - 5.2 [facility] AR[facility]EL[facility] g/dL [facility] LABORATORY AST 32 0 - 39 [facility] AR[facility]EL[facility] unit/L [facility] LABORATORY ALT 29 0 - 55 [facility] AR[facility]EL[facility] unit/L [facility] LABORATORY Alk Phos 124 40 - 130 [facility] ARASELI unit/L [facility] LABORATORY Total 0.4 0.2 - 1.3 [facility] PIERREARASEL[facility] Bilirubin mg/dL [facility] LABORATORY Bili, Direct 0.2 0.0 - 0.3 [facility] ARASELI mg/dL [facility] LABORATORY Specimen Anatomical Collection Method Collection Time Receive d Time (Source) Location / / Volume Laterality Blood 11/11/2021 3:50 AM 2 4:27 EDT AM EDT Resulting Agency Comment Spec In Lab Parviz Modi MD CHEMISTRY ORDERABLES Performing Organization Address City/State/ZIP Code Phon e Number [address] Phosphorus (11/11/2021 3:50 AM EDT) athologist Signature Phosphorus 2.5 2.5 - 4.5 [facility] ARASELI mg/dL [facility] LABORATORY Specimen Anatomical Collection Method Collection Time Receive d Time (Source) Location / / Volume Laterality Blood 11/11/2021 3:50 AM 2 4:27 EDT AM EDT Resulting Agency Comment Spec In Lab Parviz Modi MD CHEMISTRY ORDERABLES Performing Organization Address City/State/ZIP Code Phon e Number [address] Magnesium (11/11/2021 3:50 AM EDT) athologist Signature Magnesium 0.70 0.69 - 1.07 [facility] mmol/L [facility] LABORATORY Specimen Anatomical Collection Method Collection Time Receive d Time (Source) Location / / Volume Laterality Blood 11/11/2021 3:50 AM 2 4:27 EDT AM EDT Resulting Agency Comment Spec In Lab Parviz Modi MD CHEMISTRY ORDERABLES Performing Organization Address City/State/Z[place] [address] (ABNORMAL) Basic Metabolic Panel (non-fasting) (11/11/2021 3:50 AM EDT) P athologist Signature Glucose Lvl 126 65 - 199 [facility] mg/dL [facility] LABORATORY Comment: Diabetes: >=200 mg/dL plus symp toms BUN 21 (H) 10 - 20 mg/dL [facility] LABORATORY Creatinine 1.03 0.80 - 1.50 mg/dL [facility] LABORATORY Sodium 141 135 - 145 mmol/L [facility] LABORATORY Potassium 3.8 3.5 - 5.0 mmol/L [facility] LABORATORY Comment: Please note: ??Patients with WBC >100,00 0 may have falsely elevated Potassium levels. ??For accurate Potassium quantif ication in these patients send serum separator tube (gold top) for subsequent determinations. ??Contact the Clinical Chemistry Laboratory if there are any qu estions. Chloride 100 98 - 107 mmol/L [facility] LABORATORY CO2 26 22 - 31 mmol/L [facility] LABORATORY Anion Gap 15 5 - 15 mmol/L [facility] LABORATORY Calcium 8.6 8.5 - 10.5 mg/dL [facility] LABORATORY Estimated GFR 78 >=60 mL/min/1.73 m?? [facility] LABORATORY Comment: This patient? s estimated glomerular filtration rate (eGFR) is between 78 mL/min/1.73 m2 (patients with less muscl e mass per kg body weight) and 90 mL/min/1.73 m2 (patients with more muscl e [...] (Source) Location / / Volume Laterality Blood 11/11/2021 3:50 AM 2 4:27 EDT AM EDT Resulting Agency Comment Spec In Lab Parviz Modi MD CHEMISTRY ORDERABLES Performing Organization Address City/State/Z[place] [address] (ABNORMAL) Hemoglobin A1c (11/11/2021 3:50 AM EDT) Analysis Performed At Patho logist Time Signature Hemoglobin A1C 5.8 (H) 4.3 - 5.6 [facility] LABORATORY Comment: Reference Range: 4.3 - 5.6% 5.7 - 6.4% - Increased Risk of Developin g Diabetes Mellitus >= 6.5% - Consistent with diagnosis of D iabetes Mellitus In the absence of hyperglycemia (i.e. pl asma glucose > 200 mg/dL) or classic symptoms of hyperglycemia a repeat measu rement of HbA1c should be performed on a separate sample to confirm the diagnos is. Diagnosis and Classification of Diabetes Mellitus, Diabetes Care 2013; 36: Suppl. 1, T27-00 Est Avg Gluc 119 mg/dL [facility] LABORATORY Comment: eAG equivalents for HbA1c percentages: HbA1c(%) ?eAG(mg/dL) 6.0 ?126 6.5 ?140 7.0 ?154 7.5 ?169 8.0 ?183 8.5 ?197 9.0 ?212 9.5 ?226 10.0 ? 240 Limitations: The eAG calculation has not been validated on women, individuals below 18 years old and above 70 years old, and individuals with hemoglobinopathies. Additional resources are available on [facility] website. Rohit KHAN, Linda J, Vitaliy R, et al. ??Tr anslating the A1C assay into estimated average glucose values. ??Diabetes Care 2008:31(8):7034-0299. Specimen Anatomical Collection Method Collection Time Receive d Time (Source) Location / / Volume Laterality Blood 11/11/2021 3:50 AM 2 4:27 EDT AM EDT Resulting Agency Comment Spec In Lab Renay Ponce MD CHEMISTRY ORDERABLES Performing Organization Address City/[facility]/ZIP Code Phon e Number [address] LDL Cholesterol, Direct (11/11/2021 3:50 AM EDT) P athologist Signature LDL Chol 51 mg/dL [facility] LABORATORY Comment: Lowest Risk: <100 mg/dL Lower Risk: 100-129 mg/dL Borderline High Risk: 130-159 mg/dL High Risk: 160-189 mg/dL Very High Risk: >wn=508 mg/dL Specimen Anatomical Collection Method Collection Time Receive d Time (Source) Location / / Volume Laterality Blood 11/11/2021 3:50 AM 2 4:27 EDT AM EDT Resulting Agency Comment Spec In Lab Renay Ponce MD CHEMISTRY ORDERABLES Performing Organization Address City/[facility]/ZIP [facility] Phon e Number [address] HDL/Cholesterol Profile (11/11/2021 3:50 AM EDT) P athologist Signature Chol, Total 103 mg/dL [facility] LABORATORY Comment: Lower Risk: <200 mg/dL Average Risk: 200-239 mg/dL Higher Risk: >bl=014 mg/dL HDL 23 mg/dL [facility] LABORATORY Comment: Males: ?? Higher Risk: <40 mg/dL Females: ?? Higher Risk: <50 mg/dL Chol/HDL Ratio 4.5 ratio [facility] LABORATORY Chol/HDL Interpretation See Note [facility] LABORATORY Comment: Lipid management should be guided by a p atient? s ASCVD risk, goals and preferences. ACC/AHA Guidelines recommend high intens ity statin if clinical ASCVD or LDL greater than or equal to 190 mg/dL. [email or web address] Measure LDL if Total Cholesterol minus H DL Cholesterol is greater than 220 mg/dL. Adults aged 40-75 with LDL 70-189 mg/dL should have their 10 year ASCVD risk estimated with the ACC/AHA ASCVD risk es timator http://tools.acc.org/CXUJB-Dkbj-Febqjins r/ Statin should be discussed if risk great er than or equal to 7.5% in non-diabetics. With diabetes, moderate i ntensity statin is recommended if risk less than 7.5%, high intensity if risk g reater than or equal to 7.5%. Annual lipid monitoring on statins is no t necessary. Lifestyle modification is a critical com ponent of ASCVD risk reduction. Specimen Anatomical Collection Method Collection Time Receive d Time (Source) Location / / Volume Laterality Blood 11/11/2021 3:50 AM 2 4:27 EDT AM EDT Resulting Agency Comment Spec In Lab Renay Ponce MD CHEMISTRY ORDERABLES Performing Organization Address City/[facility]/ZIP [place] [address] CK (11/11/2021 3:50 AM EDT) P athologist Signature CK, Total 52 0 - 200 [facility] unit/L [facility] LABORATORY Specimen Anatomical Collection Method Collection Time Receive d Time (Source) Location / / Volume Laterality Blood 11/11/2021 3:50 AM 2 4:27 EDT AM EDT Resulting Agency Comment Spec In Lab Khloe Richardson MD CHEMISTRY ORDERABLES Performing Organization Address City/[facility]/ZIP [place] [address] (ABNORMAL) Urinalysis Microscopic Exam (11/10/2021 9:58 PM EDT) Analysis Performed At Patho logist Time Signature RBC UA >100 (H) 0 - 3 /HPF [facility] LABORATORY WBC UA 1 0 - 3 /HPF [facility] LABORATORY Squam Epith UA 2 <=4 /HPF [facility] LABORATORY Specimen Anatomical Collection Method Collection Time Receive d Time (Source) Location / / Volume Laterality Clean Catch 11/10/2021 9:58 PM 2 Urine EDT 10:04 PM EDT Resulting Agency Comment Spec In Lab Christina Medrano MD URINE ORDERABLES Performing Organization Address City/State/ZIP [place] [address] (ABNORMAL) Urinalysis with reflex Culture (11/10/2021 9:58 PM EDT) [facility] Signature Glucose UA Negative Negative [facility] mg/dL [facility] LABORATORY Protein UA 100 (A) Negative [facility] mg/dL [facility] LABORATORY Bilirubin UA Negative Negative [facility] mg/dL [facility] LABORATORY Comment: Clinical correlation required for positi ve Urine Bilirubin results as false positive may occur with some drugs and d rug related products. If a false positive is suspected a serum total bili estrella should be considered if clinically indicated. Urobilinogen UA Normal Normal mg/dL [facility] LABORATORY pH UA >=9.0 (A) 5.0 - 8.0 [facility] LABORATORY Blood UA Large (A) Negative mg/dL [facility] LABORATORY Ketones UA Negative Negative mg/dL [facility] LABORATORY Nitrite UA Negative Negative [facility] LABORATORY Leukocytes UA Trace (A) Negative [facility] LABORATORY Appearance UA Turbid (A) Clear [facility] LABORATORY Spec Ulm UA 1.019 1.005 - 1.030 [facility] LABORATORY Color UA Red (A) Yellow [facility] LABORATORY Culture Reflexed No [facility] LABORATORY Specimen Anatomical Collection Method Collection Time Receive d Time (Source) Location / / Volume Laterality Clean Catch 11/10/2021 9:58 PM 2 Urine EDT 10:04 PM EDT Resulting Agency Comment Spec In Lab Renay Ponce MD URINE ORDERABLES Performing Organization Address City/State/[place] [address] MRI Brain wwo Contrast (Generic) (11/10/2021 4:21 PM EDT) Anatomical Region Laterality Modality Head Magnetic Resonance Specimen (Source) Anatomical Location Collection Method / Collectio n Time Received Time / Laterality Volume Impressions 11/10/2021 4:51 PM EDT 1. ??Punctate acute infarct in the posterolateral right frontal lobe subcortical white matter, without acute hemorrhage. 2. ??The hypodensity previously seen in the right occipital lobe reflected artifact on the preceding CT scan as the re is no abnormality in this location on the current study. I discussed these results with Dr. Ninoska greenfield on 11/10/2021 at 4:50 PM and verified that he understood these result s. Thank you for letting us participate in the care of this patient. ??If you are a health care provider and have any questi ons regarding this report, please contact the number below. ??For patients who have questions please contact the health resident care supervisor that requested your imaging first. ? Narrative 11/10/2021 4:51 PM EDT EXAMINATION: MRI BRAIN WWO CONTRAST (GENERIC) CLINICAL HISTORY: Neuro deficit, acute, stroke suspected New right occipital stroke on CT TECHNIQUE: MRI of the brain was performed before an d after the intravenous administration of 20cc Dotarem. COMPARISON: Noncontrast head CT scan 11/10/2021 FINDINGS: There is a small focus of restricted dif fusion in the subcortical white matter of the posterolateral right frontal lobe with associated mild focal edema and no enhancement. No significant mass effect. There is no restricted diffusion or kathryn a in the posterior right occipital lobe as previously thought on the preceding s tudies noncontrast CT scan. No acute hemorrhage, mass, midline shift , or or hydrocephalus. The subarachnoid spaces are within normal limits for age. No marrow signal abnormality. There is a stable probable developmental venous a nomaly in the left frontal lobe, a normal variant, only seen on the SWI seq uence and not seen on the postcontrast images. No abnormal enhancement. Procedure Note Hollie Collier MD - 11/10/2021Formatting o f this note might be different from the original. EXAMINATION: MRI BRAIN WWO CONTRAST (GEN LETY) CLINICAL HISTORY: Neuro deficit, acute, stroke suspected New right occipital stroke on CT TECHNIQUE: MRI of the brain was performed before an d after the intravenous administration of 20cc Dotarem. COMPARISON: Noncontrast head CT scan 11/10/2021 FINDINGS: There is a small focus of restricted dif fusion in the subcortical white matter of the posterolateral right frontal lobe with associated mild focal edema and no enhancement. No significant mass effect. There is no restricted diffusion or kathryn a in the posterior right occipital lobe as previously thought on the preceding s tudies noncontrast CT scan. No acute hemorrhage, mass, midline shift , or or hydrocephalus. The subarachnoid spaces are within normal limits for age. No marrow signal abnormality. There is a stable probable developmental venous a nomaly in the left frontal lobe, a normal variant, only seen on the SWI seq uence and not seen on the postcontrast images. No abnormal enhancement. IMPRESSION 1. Punctate acute infarct in the postero lateral right frontal lobe subcortical white matter, without acute hemorrhage. 2. The hypodensity previously seen in th e right occipital lobe reflected artifact on the preceding CT scan as the re is no abnormality in this location on the current study. I discussed these results with Dr. Ninoska greenfield on 11/10/2021 at 4:50 PM and verified that he understood these result s. Thank you for letting us participate in the care of this patient. If you are a health care provider and have any questi ons regarding this report, please contact the number below. For patients w ho have questions please contact the health resident care supervisor that requested your imaging first. Renay Ponce MD IMG MRI ORDERABLES Blood culture (11/10/2021 2:21 PM EDT) [facility] Method Time Signature Blood Culture No growth JIA MARX at 5 days. [facility] LABORATORY Specimen Anatomical Collection Method Collection Time Receive d Time (Source) Location / / Volume Laterality Blood 11/10/2021 2:21 PM 2 4:15 EDT PM EDT Comment: Right Hand Resulting Agency Comment Spec In Lab Renay Ponce MD MICROBIOLOGY - BLOOD ORDERAB LES Performing Organization Address City/[facility]/ZIP [place] [address] Blood culture (11/10/2021 1:14 PM EDT) [facility] Method Time Signature Blood Culture No growth JIA MARX at 5 days. [facility] LABORATORY Specimen Anatomical Collection Method Collection Time Receive d Time (Source) Location / / Volume Laterality Blood 11/10/2021 1:14 PM 2 2:21 EDT PM EDT Comment: Left hand Resulting Agency Comment Spec In Lab Renay Ponce MD MICROBIOLOGY - BLOOD ORDERAB LES Performing Organization Address City/[facility]/ZIP [facility] [place] [address] (ABNORMAL) Platelet count (11/10/2021 12:23 PM EDT) athologist Signature Platelets 28 (L) 145 - 357 JIA MARX x10(3)/[facility] LABORATORY Plat Immature 2.6 0.0 - 7.4 JIA PIERREARASELI % % [facility] LABORATORY Comment: Limitation of the Immature Platelet Frac tion (IPF)-May be less reliable when the platelet count is less than 49k492/u L due to statistical imprecision. The IPF value provides an assessment of the Bone Marrow production status. ??It is useful in differentiating Thrombocyto penia caused by platelet destruction/consumption versus decreased production. It also helps to determine the imminent release of platelets and ca n be therefore a helpful parameter in Chemotherapy and Bone marrow transplant patients. ELEVATED IPF value: ?? When the bone marrow is in a state of over production such as when increased destruction and consumption are the unde rlying issue. ?? When the marrow is recovering post ch emotherapy or bone marrow transplant. LOW to NORMAL IPF value: ?? When the bone marrow in not respondin g and is in a decreased state of production. References: [employer] The Clinical Value of the Immature Platelet Fraction (IPF) in Cell Recovery Document Number [id number] 01/2011 [employer] The Role of the Imm ature Platelet Fraction (IPF) in the Differential Diagnosis of Thrombocytopen ia, Document [id number] V012/26/13 P012/28 Specimen Anatomical Collection Method Collection Time Receive d Time (Source) Location / / Volume Laterality Blood 11/10/2021 12:23 11/10/2021 PM EDT 12:32 PM EDT Resulting Agency Comment Spec In Lab Parviz Modi MD HEMATOLOGY ORDERABLES Performing Organization Address City/State/ZIP [place] [address] Transfuse 1 unit platelets, apheresis (11/10/2021 11:57 AM EDT) Renay Ponce MD NURSING TREATMENT ORDERABLES - BLOOD ADMIN Transfuse 1 unit platelets, apheresis (11/10/2021 11:57 AM EDT) Renay Ponce MD NURSING TREATMENT ORDERABLES - BLOOD ADMIN CT Head wo & Multiphase CTA Head/Neck (THROMBECTOMY PROTOCOL) (11/10/2021 10:34 AM EDT) Anatomical Region Laterality Modality Head Computed Tomography Specimen (Source) Anatomical Collection Method Collection Time Re ceived Time Location / / Volume Laterality 11/10/2021 10:57 AM EDT Impressions 11/10/2021 11:28 AM EDT Noncontrast head CT: Acute infarct in the posterior aspect of the right occipital lobe with no acute hemorrhage. Please also see follow-up MR I brain findings, study currently pending. CTA head and neck: No significant arterial abnormality. Spe cifically, no proximal branch occlusion. I discussed these results with Dr. Ninoska greenfield on 11/10/2021 at 11:20 AM and verified that he understood these result s. Thank you for letting us participate in the care of this patient. ??If you are a health care provider and have any questi ons regarding this report, please contact the number below. ??For patients who have questions please contact the health resident care supervisor that requested your imaging first. ? Electronically signed by: Hollie Collier MD , [facility] ([phone]), at 11/10/2021 11:28 AM Narrative 11/10/2021 11:28 AM EDT EXAMINATION: CT HEAD WO & MULTIPHASE CTA HEAD/NECK (THROMBECTOMY PROTOCOL) CLINICAL HISTORY: Concern for hemmorhagi c stroke TECHNIQUE: CT of head without intravenous contrast. Multiphase CTA of the carotids and [place] of Nicolas is performed after the administration of 65cc of Omnipaque 350 intravenous contrast. MIP and 3-D volume tric reconstructions were created. COMPARISON: Noncontrast head CT 07/07/2021 FINDINGS: Noncontrast head CT: There is hypodensity in the posterior as pect of the right occipital lobe which involves the alfaro and white matter consi stent with cytotoxic edema from acute infarct. No additional area of edema. No acute intracranial hemorrhage, mass, mass effect, hydrocephalus, or midline shift. CTA HEAD: No aneurysm, vascular malformation, sign ificant arterial stenosis, cut off, or other significant arterial abnormality. CTA NECK: No significant stenosis, cut off, dissec tion, pseudoaneurysm, or other significant arterial abnormality of the large arteries of the neck. Procedure Note Hollie Collier MD - 11/10/2021Formatting o f this note might be different from the original. EXAMINATION: CT HEAD WO & MULTIPHASE CTA HEAD/NECK (THROMBECTOMY PROTOCOL) CLINICAL HISTORY: Concern for hemmorhagi c stroke TECHNIQUE: CT of head without intravenous contrast. Multiphase CTA of the carotids and [place] of [place] is performed after the administration of 65cc of Omnipaque 350 intravenous contrast. MIP and 3-D volume tric reconstructions were created. COMPARISON: Noncontrast head CT 07/07/2021 FINDINGS: Noncontrast head CT: There is hypodensity in the posterior as pect of the right occipital lobe which involves the alfaro and white matter consi stent with cytotoxic edema from acute infarct. No additional area of edema. No acute intracranial hemorrhage, mass, mass effect, hydrocephalus, or midline shift. CTA HEAD: No aneurysm, vascular malformation, sign ificant arterial stenosis, cut off, or other significant arterial abnormality. CTA NECK: No significant stenosis, cut off, dissec tion, pseudoaneurysm, or other significant arterial abnormality of the large arteries of the neck. IMPRESSION Noncontrast head CT: Acute infarct in the posterior aspect of the right occipital lobe with no acute hemorrhage. Please also see follow-up MR I brain findings, study currently pending. CTA head and neck: No significant arterial abnormality. Spe cifically, no proximal branch occlusion. I discussed these results with Dr. Ninoska greenfield on 11/10/2021 at 11:20 AM and verified that he understood these result s. Thank you for letting us participate in the care of this patient. If you are a health care provider and have any questi ons regarding this report, please contact the number below. For patients w ho have questions please contact the health resident care supervisor that requested your imaging first. Electronically signed by: Hollie Collier MD , [facility] ([phone]), at 11/10/2021 11:28 AM Renay Ponce MD IMG CT ORDERABLES POCT Glucose (11/10/2021 10:09 AM EDT) P athologist Signature POC Glucose 134 65 - 199 [facility] mg/dL [facility] Comment: Supplemental ranges: <140 mg/dL before meals <180 mg/dL all other times of the day Specimen Anatomical Collection Method Collection Time Receive d Time (Source) Location / / Volume Laterality Blood 11/10/2021 10:09 11/10/2021 AM EDT 10:09 AM EDT Renay Ponce MD POINT OF CARE TEST ORDERABLE S Performing Organization Address City/[facility]/ZIP Code Phon e Number [address] Prepare Platelets, Apheresis (11/10/2021 10:05 AM EDT) athologist Signature Dispensed? Yes [facility] Specimen Anatomical Collection Method Collection Time Receive d Time (Source) Location / / Volume Laterality Blood 11/10/2021 10:05 11/10/2021 AM EDT 10:04 AM EDT Renay Ponce MD BLOOD BANK ORDERABLES Performing Organization Address City/[facility]/ZIP Code Phon e Number [address] Scan, Peripheral Blood (11/10/2021 3:35 AM EDT) [facility] Method Time Signature Plat Estimate Decreased [facility] RBC Morphology Abnormal [facility] Hypochromia Slight [facility] Ovalocytes 1-5 /HPF [facility] Tear Drop Cells 1-5 /HPF [facility] Specimen Anatomical Collection Method Collection Time Receive d Time (Source) Location / / Volume Laterality Blood 11/10/2021 3:35 AM 3:59 EDT AM EDT Resulting Agency Comment Spec In Lab Parviz Modi MD HEMATOLOGY ORDERABLES Performing Organization Address City/[facility]/ZIP [place] [address] (ABNORMAL) Differential, Automated (11/10/2021 3:35 AM EDT) [facility] Method Time Signature Neutrophils % 44.0 % [facility] Neutr Abs (ANC) 0.18 1.70 - [facility] (Critical 6.10 [facility] ) x10(3)/[facility] L LABORATORY Lymphocytes % 2.4 % [facility] Lymphocytes Abs 0.0 (L) 0.9 - 3.2 [facility] x10(3)/[facility] LABORATORY Monocytes % 46.3 % [facility] Monocyte Abs 0.2 (L) 0.3 - 0.9 [facility] x10(3)/[facility] LABORATORY Eosinophils % 0.0 % [facility] Eosinophils Abs 0.0 0.0 - 0.4 [facility] x10(3)/[facility] LABORATORY Basophils % 0.0 % [facility] Basophils Abs 0.0 0.0 - 0.1 [facility] x10(3)/[facility] LABORATORY Immature Gran % 7.30 % [facility] Comment: Immature granulocytes(IG's)percentage an d absolute count will include metamyelocytes, myelocytes, and promyelo cytes. Blood smears from CBCs yielding IG's will be scanned manually for concor dance. If this scan disagrees with the automated IG or if promyelocytes are not ed, a manual differential will be performed. Zara Gran Abs 0.03 0.00 - 0.04 x10(3)/[facility] LABORATORY Specimen Anatomical Collection Method Collection Time Receive d Time (Source) Location / / Volume Laterality Blood 11/10/2021 3:35 AM 3:59 EDT AM EDT Resulting Agency Comment Spec In Lab Parviz Modi MD HEMATOLOGY ORDERABLES Performing Organization Address City/State/[place] [address] (ABNORMAL) Hemogram (11/10/2021 3:35 AM EDT) [facility] gist Method Time Signature WBC 0.4 4.0 - 9.5 [facility] (Critical) x10(3)/[facility] LABORATORY RBC 2.30 (L) 4.58 - [facility] 5.54 [facility] x10(6)/[facility] LABORATORY Hemoglobin 7.0 (L) 13.7 - [facility] 16.5 g/dL [facility] Hematocrit 20.0 (L) 40.5 - [facility] 48.5 % [facility] MCV 87.0 82.9 - [place] 93.1 [facility] LABORATORY MCH 30.4 27.5 - [place] 32.1 pg [facility] MCHC 35.0 32.0 - [place] 35.7 g/dL [facility] Platelets 17 145 - 357 [place] [place] (Critical) x10(3)/[facility] LABORATORY RDWSD 43.2 36.0 - [place] 45.0 [facility] LABORATORY RDWCV 13.3 11.4 - [place] 13.8 % [facility] MPV 10.3 7.6 - 12.9 [facility] [place] [facility] LABORATORY nRBC Abs Auto 0.020 (H) 0.000 - [place] 0.000 [facility] x10(3)/[facility] LABORATORY Specimen Anatomical Collection Method Collection Time Receive d Time (Source) Location / / Volume Laterality Blood 11/10/2021 3:35 AM 2 3:59 EDT AM EDT Resulting Agency Comment Spec In Lab Parviz Modi MD HEMATOLOGY ORDERABLES Performing Organization Address City/State/ZIP Code Phon e Number [address] Phosphorus (11/10/2021 3:35 AM EDT) P athologist Signature Phosphorus 2.7 2.5 - 4.5 [place] mg/dL [facility] Specimen Anatomical Collection Method Collection Time Receive d Time (Source) Location / / Volume Laterality Blood 11/10/2021 3:35 AM 2 3:59 EDT AM EDT Resulting Agency Comment Spec In Lab Parviz Modi MD CHEMISTRY ORDERABLES Performing Organization Address City/State/ZIP Code Phon e Number [address] Magnesium (11/10/2021 3:35 AM EDT) P athologist Signature Magnesium 0.72 0.69 - 1.07 [place] mmol/L [facility] Specimen Anatomical Collection Method Collection Time Receive d Time (Source) Location / / Volume Laterality Blood 11/10/2021 3:35 AM 3:59 EDT AM EDT Resulting Agency Comment Spec In Lab Parviz Modi MD CHEMISTRY ORDERABLES Performing Organization Address City/State/[place] [address] (ABNORMAL) Basic Metabolic Panel (non-fasting) (11/10/2021 3:35 AM EDT) P athologist Signature Glucose Lvl 129 65 - 199 [facility] mg/dL [facility] Comment: Diabetes: >=200 mg/dL plus symp toms BUN 23 (H) 10 - 20 mg/dL [facility] Creatinine 0.96 0.80 - 1.50 mg/dL [facility] Sodium 140 135 - 145 mmol/L [facility] Potassium 3.9 3.5 - 5.0 mmol/L [facility] Comment: Please note: ??Patients with WBC >100,00 0 may have falsely elevated Potassium levels. ??For accurate Potassium quantif ication in these patients send serum separator tube (gold top) for subsequent determinations. ??Contact the Clinical Chemistry Laboratory if there are any qu estions. Chloride 100 98 - 107 mmol/L [facility] CO2 28 22 - 31 mmol/L [facility] Anion Gap 12 5 - 15 mmol/L [facility] Calcium 8.4 (L) 8.5 - 10.5 mg/dL [facility] Estimated GFR 85 >=60 mL/min/1.73 m?? [facility] Comment: This patient? s estimated glomerular filtration rate (eGFR) is between 85 mL/min/1.73 m2 (patients with less muscl e mass per kg body weight) and 98 mL/min/1.73 m2 (patients with more muscl e [...] (Source) Location / / Volume Laterality Blood 11/10/2021 3:35 AM 3:59 EDT AM EDT Resulting Agency Comment Spec In Lab Parviz Modi MD CHEMISTRY ORDERABLES Performing Organization Address City/State/[place] [address] Transfuse 1 unit platelets, apheresis (11/09/2021 6:57 PM EDT) Renay Ponce MD NURSING TREATMENT ORDERABLES - BLOOD ADMIN Transfuse 1 unit platelets, apheresis (11/09/2021 6:57 PM EDT) Renay Ponce MD NURSING TREATMENT ORDERABLES - BLOOD ADMIN (ABNORMAL) Platelet count (11/09/2021 6:45 PM EDT) [facility] Method Time Signature Platelets 16 145 - 357 [facility] (Critical) x10(3)/[facility] LABORATORY Plat Immature 1.2 0.0 - 7.4 [facility] % % [facility] Comment: Limitation of the Immature Platelet Frac tion (IPF)-May be less reliable when the platelet count is less than 04y039/u L due to statistical imprecision. The IPF value provides an assessment of the Bone Marrow production status. ??It is useful in differentiating Thrombocyto penia caused by platelet destruction/consumption versus decreased production. It also helps to determine the imminent release of platelets and ca n be therefore a helpful parameter in Chemotherapy and Bone marrow transplant patients. ELEVATED IPF value: ?? When the bone marrow is in a state of over production such as when increased destruction and consumption are the unde rlying issue. ?? When the marrow is recovering post ch emotherapy or bone marrow transplant. LOW to NORMAL IPF value: ?? When the bone marrow in not respondin g and is in a decreased state of production. References: [employer] The Clinical Value of the Immature Platelet Fraction (IPF) in Cell Recovery Document Number [id number] 01/2011 [employer] The Role of the Imm ature Platelet Fraction (IPF) in the Differential Diagnosis of Thrombocytopen ia, Document [id number] V05/07/30 P0514 Specimen Anatomical Collection Method Collection Time Receive d Time (Source) Location / / Volume Laterality Blood 11/09/2021 6:45 PM 2 7:00 EDT PM EDT Resulting Agency Comment Spec In Lab Parviz Modi MD HEMATOLOGY ORDERABLES Performing Organization Address City/[facility]/ZIP [place] [address] C. Difficile Screen (11/09/2021 2:40 PM EDT) Analysis Performed At Patho logist Time Signature C Diff Screen Negative Negative [facility] Comment: Ag/Tox Neg C. diff?? Negative Clostridium difficile is not present in the specimen. If patient is having diarrhea suspected to be from an infecti ous cause, then Soap & Water Contact Precautions are still required. Specimen Anatomical Collection Method Collection Time Receive d Time (Source) Location / / Volume Laterality Stool 11/09/2021 2:40 PM 2 3:16 EDT PM EDT Resulting Agency Comment Spec In Lab Renay Ponce MD MICROBIOLOGY - GENERAL ORDER BRINA Performing Organization Address City/[facility]/ZIP [place] [address] Prepare Platelets, Apheresis (11/09/2021 12:55 PM EDT) P athologist Signature Dispensed? Yes [facility] Specimen Anatomical Collection Method Collection Time Receive d Time (Source) Location / / Volume Laterality Blood 11/09/2021 12:55 11/09/2021 PM EDT 12:54 PM EDT Renay Ponce MD BLOOD BANK ORDERABLES Performing Organization Address City/[facility]/ZIP [place] [address] Transfuse RBC (11/09/2021 7:28 AM EDT) Khloe Richardson MD NURSING TREATMENT ORDERABLES - BLOOD ADMIN Transfuse RBC (11/09/2021 7:28 AM EDT) Khloe Richardson MD NURSING TREATMENT ORDERABLES - BLOOD ADMIN Blood culture (11/09/2021 4:28 AM EDT) [facility] gist Method Time Signature Blood Culture No growth JIA MARX at 5 days. [facility] Specimen Anatomical Collection Method Collection Time Receive d Time (Source) Location / / Volume Laterality Blood 11/09/2021 4:28 AM 2 4:43 EDT AM EDT Resulting Agency Comment Spec In Lab Khloe Richardson MD MICROBIOLOGY - BLOOD ORDERAB LES Performing Organization Address City/[facility]/ZIP [place] [address] Blood culture (11/09/2021 4:10 AM EDT) [facility] gist Method Time Signature Blood Culture No growth JIA MARX at 5 days. [facility] Specimen Anatomical Collection Method Collection Time Receive d Time (Source) Location / / Volume Laterality Blood 11/09/2021 4:10 AM 2 4:54 EDT AM EDT Resulting Agency Comment Spec In Lab Khloe Richardson MD MICROBIOLOGY - BLOOD ORDERAB LES Performing Organization Address City/[facility]/ZIP [place] [address] Prepare RBC (11/09/2021 3:45 AM EDT) P athologist Signature Dispensed? Yes [facility] Specimen Anatomical Collection Method Collection Time Receive d Time (Source) Location / / Volume Laterality Blood 11/09/2021 3:45 AM 2 3:44 EDT AM EDT Khloe Richardson MD BLOOD BANK ORDERABLES Performing Organization Address City/[facility]/ZIP [place] [address] (ABNORMAL) Hemogram (11/09/2021 2:56 AM EDT) P athologist Signature WBC 0.1 4.0 - 9.5 [facility] (Critical) x10(3)/[facility] LABORATORY Comment: Diff not performed-WBC Less miguel a n or equal to 0.25. RBC 1.98 (L) 4.58 - 5.54 x10(6)/[facility] LABORATORY Hemoglobin 6.2 (L) 13.7 - 16.5 g/dL [facility] LABOR[facility]ORY Hematocrit 17.8 (L) 40.5 - 48.5 % [facility] MCV 89.9 82.9 - 93.1 [facility] LABORATORY MCH 31.3 27.5 - 32.1 pg [facility] MCHC 34.8 32.0 - 35.7 g/dL [facility]OR[facility]ORY Platelets 13 (Critical) 145 - 357 x10(3)/[facility] LABORATORY RDWSD 44.7 36.0 - 45.0 [facility] LABORATORY RDWCV 13.5 11.4 - 13.8 % [facility] LABORATORY MPV 9.6 7.6 - 12.9 [facility] LABORATORY nRBC Abs Auto 0.000 0.000 - 0.000 x10(3)/[facility] LABORATORY Specimen Anatomical Collection Method Collection Time Receive d Time (Source) Location / / Volume Laterality Blood 11/09/2021 2:56 AM 2 3:24 EDT AM EDT Resulting Agency Comment Spec In Lab Parviz Modi MD HEMATOLOGY ORDERABLES Performing Organization Address City/State/[place] [address] (ABNORMAL) Basic Metabolic Panel (non-fasting) (11/09/2021 2:56 AM EDT) athologist Signature Glucose Lvl 135 65 - 199 [facility] mg/dL [facility] Comment: Diabetes: >=200 mg/dL plus symp toms BUN 26 (H) 10 - 20 mg/dL [facility] Creatinine 0.99 0.80 - 1.50 mg/dL [facility] Sodium 140 135 - 145 mmol/L [facility] [...] estions. Chloride 102 98 - 107 mmol/L [facility] CO2 28 22 - 31 mmol/L [facility] Anion Gap 10 5 - 15 mmol/L [facility] Calcium 8.4 (L) 8.5 - 10.5 mg/dL [facility] Estimated GFR 82 >=60 mL/min/1.73 m?? [facility] Comment: This patient? s estimated glomerular filtration rate (eGFR) is between 82 mL/min/1.73 m2 (patients with less muscl e mass per kg body weight) and 95 mL/min/1.73 m2 (patients with more muscl e [...] (Source) Location / / Volume Laterality Blood 11/09/2021 2:56 AM 2 3:24 EDT AM EDT Resulting Agency Comment Spec In Lab Parviz Moid MD CHEMISTRY ORDERABLES Performing Organization Address City/State/[place] [address] Magnesium (11/09/2021 2:56 AM EDT) athologist Signature Magnesium 0.79 0.69 - 1.07 [facility] mmol/L [facility] Specimen Anatomical Collection Method Collection Time Receive d Time (Source) Location / / Volume Laterality Blood 11/09/2021 2:56 AM 2 3:24 EDT AM EDT Resulting Agency Comment Spec In Lab Parviz Modi MD CHEMISTRY ORDERABLES Performing Organization Address City/[facility]/ZIP Code Phon e Number [address] Phosphorus (11/09/2021 2:56 AM EDT) P athologist Signature Phosphorus 3.0 2.5 - 4.5 [facility] [place] mg/dL [facility] Specimen Anatomical Collection Method Collection Time Receive d Time (Source) Location / / Volume Laterality Blood 11/09/2021 2:56 AM 2 3:24 EDT AM EDT Resulting Agency Comment Spec In Lab Parviz Modi MD CHEMISTRY ORDERABLES Performing Organization Address City/[facility]/ZIP [place] [address] (ABNORMAL) Platelet count (11/08/2021 2:40 PM EDT) Patholo gist Method Time Signature Platelets 19 145 - 357 [facility] (Critical) x10(3)/[facility] LABORATORY Plat Immature 0.8 0.0 - 7.4 [facility] % % [facility] Comment: Limitation of the Immature Platelet Frac tion (IPF)-May be less reliable when the platelet count is less than 65f116/u L due to statistical imprecision. The IPF value provides an assessment of the Bone Marrow production status. ??It is useful in differentiating Thrombocyto penia caused by platelet destruction/consumption versus decreased production. It also helps to determine the imminent release of platelets and ca n be therefore a helpful parameter in Chemotherapy and Bone marrow transplant patients. ELEVATED IPF value: ?? When the bone marrow is in a state of over production such as when increased destruction and consumption are the unde rlying issue. ?? When the marrow is recovering post ch emotherapy or bone marrow transplant. LOW to NORMAL IPF value: ?? When the bone marrow in not respondin g and is in a decreased state of production. References: [employer]. The Clinical Value of the Immature Platelet Fraction (IPF) in Cell Recovery Document Number [id number] 01/2011 [employer]. The Role of the Imm ature Platelet Fraction (IPF) in the Differential Diagnosis of Thrombocytopen ia, Document [id number] V012/26/13 P012/28 Specimen Anatomical Collection Method Collection Time Receive d Time (Source) Location / / Volume Laterality Blood 11/08/2021 2:40 PM 2 3:13 EDT PM EDT Resulting Agency Comment Spec In Lab Parviz Modi MD HEMATOLOGY ORDERABLES Performing Organization Address City/[facility]/ZIP Code Phon e Number [address] Transfuse 1 unit platelets, apheresis (11/08/2021 2:29 PM EDT) Khloe Richardson MD NURSING TREATMENT ORDERABLES - BLOOD ADMIN Transfuse 1 unit platelets, apheresis (11/08/2021 2:29 PM EDT) Khloe Richardson MD NURSING TREATMENT ORDERABLES - BLOOD ADMIN Prepare Platelets, Apheresis (11/08/2021 8:00 AM EDT) P athologist Signature Dispensed? Yes [facility] Specimen Anatomical Collection Method Collection Time Receive d Time (Source) Location / / Volume Laterality Blood 11/08/2021 8:00 AM 2 7:59 EDT AM EDT Khloe Richardson MD BLOOD BANK ORDERABLES Performing Organization Address City/[facility]/ZIP [place] [address] (ABNORMAL) Hemogram (11/08/2021 1:25 AM EDT) P athologist Signature WBC 0.0 4.0 - 9.5 [facility] (Critical) x10(3)/[facility] LABORATORY Comment: Diff not performed-WBC Less miguel a n or equal to 0.25. RBC 2.40 (L) 4.58 - 5.54 x10(6)/[facility] LABORATORY Hemoglobin 7.4 (L) 13.7 - 16.5 g/dL [facility] Hematocrit 21.0 (L) 40.5 - 48.5 % [facility] MCV 87.5 82.9 - 93.1 [facility] LABORATORY MCH 30.8 27.5 - 32.1 pg [facility] MCHC 35.2 32.0 - 35.7 g/dL [facility] LABORATORY Platelets 7 (Critical) 145 - 357 x10(3)/[facility] LABORATORY RDWSD 44.0 36.0 - 45.0 [facility] LABORATORY RDWCV 13.5 11.4 - 13.8 % [facility] LABORATORY MPV Not Measured 7.6 - 12.9 [facility] LABORATORY nRBC Abs Auto 0.000 0.000 - 0.000 x10(3)/[facility] LABORATORY Specimen Anatomical Collection Method Collection Time Receive d Time (Source) Location / / Volume Laterality Blood 11/08/2021 1:25 AM 2 1:35 EDT AM EDT Resulting Agency Comment Spec In Lab Parviz Modi MD HEMATOLOGY ORDERABLES Performing Organization Address City/[facility] Code Phon e Number [address] Phosphorus (11/08/2021 1:25 AM EDT) P athologist Signature Phosphorus 3.0 2.5 - 4.5 [facility] mg/dL [facility] LABOR[facility]ORY Specimen Anatomical Collection Method Collection Time Receive d Time (Source) Location / / Volume Laterality Blood 11/08/2021 1:25 AM 2 1:35 EDT AM EDT Resulting Agency Comment Spec In Lab Parviz Modi MD CHEMISTRY ORDERABLES Performing Organization Address City/[facility] Phon e Number [address] Magnesium (11/08/2021 1:25 AM EDT) P athologist Signature Magnesium 0.72 0.69 - 1.07 [facility] mmol/L [facility] LABORATORY Specimen Anatomical Collection Method Collection Time Receive d Time (Source) Location / / Volume Laterality Blood 11/08/2021 1:25 AM 2 1:35 EDT AM EDT Resulting Agency Comment Spec In Lab Parviz Modi MD CHEMISTRY ORDERABLES Performing Organization Address City/State/ZIP [place] [address] (ABNORMAL) Basic Metabolic Panel (non-fasting) (11/08/2021 1:25 AM EDT) athologist Signature Glucose Lvl 117 65 - 199 [facility] mg/dL [facility] Comment: Diabetes: >=200 mg/dL plus symp toms BUN 29 (H) 10 - 20 mg/dL [facility] Creatinine 0.95 0.80 - 1.50 mg/dL [facility] Sodium 141 135 - 145 mmol/L [facility] Potassium 3.9 3.5 - 5.0 mmol/L [facility] Comment: Please note: ??Patients with WBC >100,00 0 may have falsely elevated Potassium levels. ??For accurate Potassium quantif ication in these patients send serum separator tube (gold top) for subsequent determinations. ??Contact the Clinical Chemistry Laboratory if there are any qu estions. Chloride 107 98 - 107 mmol/L [facility] CO2 23 22 - 31 mmol/L [facility] Anion Gap 11 5 - 15 mmol/L [facility] Calcium 7.8 (L) 8.5 - 10.5 mg/dL [facility] Estimated GFR 86 >=60 mL/min/1.73 m?? [facility] Comment: This patient? s estimated [...] (Source) Location / / Volume Laterality Blood 11/08/2021 1:25 AM 2 1:35 EDT AM EDT Resulting Agency Comment Spec In Lab Parviz Modi MD CHEMISTRY ORDERABLES Performing Organization Address City/[facility]/ZIP Code Phon e Number [address] Tacrolimus level (11/07/2021 9:20 AM EDT) P athologist Signature Tacrolimus Lvl 9.8 ng/mL [facility] Comment: Trough therapeutic range is [...] (Source) Location / / Volume Laterality Blood 11/07/2021 9:20 AM 2 EDT 10:18 AM EDT Resulting Agency Comment Spec In Lab Parviz Modi MD CHEMISTRY ORDERABLES Performing Organization Address City/[facility] [place] [address] Type and Screen Validity (11/07/2021 3:40 AM EDT) Patholo gist Method Time Signature T&S only valid [facility] at [facility] Comment: This Type and Screen result is only valid at the [facility] Specimen Anatomical Collection Method Collection Time Receive d Time (Source) Location / / Volume Laterality Blood Venous Draw / 11/07/2021 3:40 AM 11/08/19 22 3:55 Unknown EDT AM EDT Resulting Agency Comment Spec In Lab Derek Choi MD BLOOD BANK ORDERABLES Performing Organization Address City/[facility]/ZIP Code Phon e Number [address] ABORH Recheck Status (11/07/2021 3:40 AM EDT) [facility] [employer] Method Time Signature ABORH Type Completed [facility] LABORATORY Specimen Anatomical Collection Method Collection Time Receive d Time (Source) Location / / Volume Laterality Blood Venous Draw / 11/07/2021 3:40 AM 11/08/19 22 3:55 Unknown EDT AM EDT Resulting Agency Comment Spec In Lab Derek Choi MD BLOOD BANK ORDERABLES Performing Organization Address City/[facility]/ZIP Code Phon e Number [address] Antibody screen manual (11/07/2021 3:40 AM EDT) [facility] Screen Negative [facility]ATORY Specimen Anatomical Collection Method Collection Time Receive d Time (Source) Location / / Volume Laterality Blood Venous Draw / 11/07/2021 3:40 AM 11/08/19 22 3:55 Unknown EDT AM EDT Resulting Agency Comment Spec In Lab Derek Choi MD BLOOD BANK ORDERABLES Performing Organization Address City/[facility]/ZIP [place] [address] ABORh Type Manual (11/07/2021 3:40 AM EDT) [facility] [employer] Method Time Signature Expires at 11/10/2021 JIA MARX 2359 on: [facility] ABORh Type O Pos [facility] Comment: 11/08/2021 21:26 ??KHANBI Allogeneic Transplant Recipient: 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 Recipient pre-Transplant ABORH: O pos Donor ABORH: O neg Any questions/concerns call Ext [phone]. Corrected from O Pos [Unknown] on 21:26:18 EDT by Win Chew. Specimen Anatomical Collection Method Collection Time Receive d Time (Source) Location / / Volume Laterality Blood Venous Draw / 11/07/2021 3:40 AM 11/08/19 3:55 Unknown EDT AM EDT Resulting Agency Comment Spec In Lab Derek Choi MD BLOOD BANK ORDERABLES Performing Organization Address City/State/[place] [address] (ABNORMAL) Hemogram (11/07/2021 3:40 AM EDT) P athologist Signature WBC 0.0 4.0 - 9.5 [facility] (Critical) x10(3)/[facility] Comment: Diff not performed-WBC Less miguel a n or equal to 0.25. RBC 2.49 (L) 4.58 - 5.54 x10(6)/[facility]ATORY Hemoglobin 7.8 (L) 13.7 - 16.5 g/dL [facility] Hematocrit 21.5 (L) 40.5 - 48.5 % [facility] MCV 86.3 82.9 - 93.1 [facility] LABORATORY MCH 31.3 27.5 - 32.1 pg [facility] MCHC 36.3 (H) 32.0 - 35.7 g/dL [facility] Platelets 14 (Critical) 145 - 357 x10(3)/[facility] LABORATORY RDWSD 44.3 36.0 - 45.0 [facility] LABORATORY RDWCV 14.0 (H) 11.4 - 13.8 % [facility] MPV 12.8 7.6 - 12.9 [facility] LABORATORY nRBC Abs Auto 0.000 0.000 - 0.000 x10(3)/[facility] LABORATORY Specimen Anatomical Collection Method Collection Time Receive d Time (Source) Location / / Volume Laterality Blood 11/07/2021 3:40 AM 03/24/202 2 4:04 EDT AM EDT Resulting Agency Comment Spec In Lab Parviz Modi MD HEMATOLOGY ORDERABLES Performing Organization Address City/State/ZIP Code Phon e Number [address] (ABNORMAL) Hepatic Function Panel (11/07/2021 3:40 AM EDT) athologist Signature Total Protein 6.4 6.1 - 8.0 JIA ARASELI g/dL [facility] Albumin 3.1 (L) 3.2 - 5.2 JIA ARASELI g/dL [facility] AST 15 0 - 39 [facility] ARASELI unit/L [facility] ALT 27 0 - 55 [facility] ARASELI unit/L [facility] Alk Phos 123 40 - 130 [facility] Total 0.5 0.2 - 1.3 JIA ARASELI Bilirubin mg/dL [facility] Bili, Direct 0.2 0.0 - 0.3 [facility] ARASELI mg/dL [facility] Specimen Anatomical Collection Method Collection Time Receive d Time (Source) Location / / Volume Laterality Blood 11/07/2021 3:40 AM 2 4:04 EDT AM EDT Resulting Agency Comment Spec In Lab Parviz Modi MD CHEMISTRY ORDERABLES Performing Organization Address City/[facility]/ZIP [place] [address] Phosphorus (11/07/2021 3:40 AM EDT) athologist Signature Phosphorus 3.0 2.5 - 4.5 JIA ARASELI mg/dL [facility] Specimen Anatomical Collection Method Collection Time Receive d Time (Source) Location / / Volume Laterality Blood 11/07/2021 3:40 AM 2 4:04 EDT AM EDT Resulting Agency Comment Spec In Lab Parviz Modi MD CHEMISTRY ORDERABLES Performing Organization Address City/[facility]/ZIP Code Phon e Number [address] Magnesium (11/07/2021 3:40 AM EDT) P athologist Signature Magnesium 0.90 0.69 - 1.07 [facility] mmol/L [facility] Specimen Anatomical Collection Method Collection Time Receive d Time (Source) Location / / Volume Laterality Blood 11/07/2021 3:40 AM 4:04 EDT AM EDT Resulting Agency Comment Spec In Lab Parviz Modi MD CHEMISTRY ORDERABLES Performing Organization Address City/State/[place] [address] (ABNORMAL) Basic Metabolic Panel (non-fasting) (11/07/2021 3:40 AM EDT) athologist Signature Glucose Lvl 116 65 - 199 [facility] mg/dL [facility] Comment: Diabetes: >=200 mg/dL plus symp toms BUN 32 (H) 10 - 20 mg/dL [facility] Creatinine 1.07 0.80 - 1.50 mg/dL [facility] Sodium 140 135 - 145 mmol/L [facility] Potassium 4.1 3.5 - 5.0 mmol/L [facility] Comment: Please note: ??Patients with WBC >100,00 0 may have falsely elevated Potassium levels. ??For accurate Potassium quantif ication in these patients send serum separator tube (gold top) for subsequent determinations. ??Contact the Clinical Chemistry Laboratory if there are any qu estions. Chloride 104 98 - 107 mmol/L [facility] CO2 24 22 - 31 mmol/L [facility] Anion Gap 12 5 - 15 mmol/L [facility] Calcium 8.6 8.5 - 10.5 mg/dL [facility] Estimated GFR 75 >=60 mL/min/1.73 m?? [facility] Comment: This patient? s estimated glomerular filtration rate (eGFR) is between 75 mL/min/1.73 m2 (patients with less muscl e mass per kg body weight) and 86 mL/min/1.73 m2 (patients with more muscl e [...] (Source) Location / / Volume Laterality Blood 11/07/2021 3:40 AM 2 4:04 EDT AM EDT Resulting Agency Comment Spec In Lab Parviz Modi MD CHEMISTRY ORDERABLES Performing Organization Address City/[facility]/ZIP [place] [address] Scan, Peripheral Blood (11/06/2021 4:05 PM EDT) [facility] Friday Time Signature Plat Estimate Decreased [facility] RBC Morphology Normal [facility] Specimen Anatomical Collection Method Collection Time Receive d Time (Source) Location / / Volume Laterality Blood 11/06/2021 4:05 PM 2 4:52 EDT PM EDT Resulting Agency Comment Spec In Lab Parviz Modi MD HEMATOLOGY ORDERABLES Performing Organization Address City/[facility]/ZIP [place] [address] Miscellaneous Lab request (11/06/2021 4:05 PM EDT) [facility] Mob[employer]i Method Time Signature Misc Lab Request [facility] Result received in [facility] LABORATORY Specimen Anatomical Collection Method Collection Time Receive d Time (Source) Location / / Volume Laterality Blood 11/06/2021 4:05 PM 2 4:56 EDT PM EDT Resulting Agency Comment Spec In Lab Luis Manuel Goodrich Jr., MD HEMATOLOGY ORDERABLES Performing Organization Address City/State/ZIP [place] [address] (ABNORMAL) Platelet count (11/06/2021 4:05 PM EDT) [facility] Method Time Signature Platelets 19 145 - 357 JIA MARX (Critical) x10(3)/[facility] LABORATORY Plat Immature 0.8 0.0 - 7.4 JIA MARX % % [facility] Comment: Limitation of the Immature Platelet Frac tion (IPF)-May be less reliable when the platelet count is less than 66e492/u L due to statistical imprecision. The IPF value provides an assessment of the Bone Marrow production status. ??It is useful in differentiating Thrombocyto penia caused by platelet destruction/consumption versus decreased production. It also helps to determine the imminent release of platelets and ca n be therefore a helpful parameter in Chemotherapy and Bone marrow transplant patients. ELEVATED IPF value: ?? When the bone marrow is in a state of over production such as when increased destruction and consumption are the unde rlying issue. ?? When the marrow is recovering post ch emotherapy or bone marrow transplant. LOW to NORMAL IPF value: ?? When the bone marrow in not respondin g and is in a decreased state of production. References: [employer] The Clinical Value of the Immature Platelet Fraction (IPF) in Cell Recovery Document Number [id number] 01/2011 [employer] The Role of the Imm ature Platelet Fraction (IPF) in the Differential Diagnosis of Thrombocytopen ia, Document [id number] V05 P05 Specimen Anatomical Collection Method Collection Time Receive d Time (Source) Location / / Volume Laterality Blood 11/06/2021 4:05 PM 2 4:52 EDT PM EDT Resulting Agency Comment Spec In Lab Parviz Modi MD HEMATOLOGY ORDERABLES Performing Organization Address City/State/ZIP Code Phon e Number [facility] [place] [address] Transfuse 1 unit platelets, apheresis (11/06/2021 2:38 PM EDT) Khloe Richardson MD NURSING TREATMENT ORDERABLES - BLOOD ADMIN Transfuse 1 unit platelets, apheresis (11/06/2021 2:38 PM EDT) Khloe Richardson MD NURSING TREATMENT ORDERABLES - BLOOD ADMIN Blood culture (11/06/2021 12:24 PM EDT) Patholo gist Method Time Signature Blood Culture No growth JIA MARX at 5 days. [facility] Specimen Anatomical Collection Method Collection Time Receive d Time (Source) Location / / Volume Laterality Blood STRUCTURE OF LEFT 11/06/2021 12:24 2021 1:22 HAND / Unknown PM EDT PM EDT Comment: #2 Resulting Agency Comment Spec In Lab Khloe Richardson MD MICROBIOLOGY - BLOOD ORDERAB LES Performing Organization Address City/State/ZIP Code [place] [address] ECHOCARDIO[address] LMTD W/O CON W LMTD SPEC DOPP, COLOR DOPP (11/06/2021 12:19 PM EDT) P athologist Signature EF 60 [facility] Specimen (Source) Anatomical Collection Method Collection Time Re ceived Time Location / / Volume Laterality 11/06/2021 11:28 AM EDT Narrative [facility] - 11/06/2021 1:24 PM EDT ?[facility] ?[address] ? [place] [address] ?Voice: ?Fax: ? Echocardiogram Report Name: LUIS MANUEL MOBLEY JR. ?Study Date: 11/06/2021 11:28 AM ? Patient Location: [address] : 1960 ? Height: 177 cm ? Account: [id number] Age: 61 yrs ? Weight: 101 kg Gender: Male ?BSA: 2.2 m2 Ordering Physician: ZELALEM RICHARDSON Referring Physician: BEATRIZ MAURICE Performed By: Chelita Mehta RDCS Reason For Study: Bacteremia Interpreting Fellow: Emily Underwood. Exam Location: [facility]. Interpretation Summary 1. There are no vegetations seen on this study, if clinical suspicion for endocarditis remains, cons ider OLEKSANDR for further evaluation 2. Left ventricle is normal in size. LVE F is estimated at 64% by biplane. There are no wall motion abnormalities. 3. Right ventricle is milldly dilated wi th normal systolic function. 4. There is no pericardial effusion. Procedure Limited - 90[address]. Satisfactory quality. T here is normal sinus rhythm. Tachycardia. Left Ventricle Left ventricle is of normal size. Left v entricular systolic function is normal. The left ventricular ejection fraction i s 64% by Tony's biplane. There are no segmental wall motion abnormalities. Right Ventricle Right ventricle is mildly dilated. Right ventricular systolic function is normal. Left Atrium The left atrium is probably normal. Right Atrium The right atrium is probably normal in s ize. Aortic Valve The aortic valve is structurally normal. There is no evidence for a vegetation on the aortic valve. The aortic valve is tr icuspid. There is no aortic stenosis. There is trace aortic regurgitation. Mitral Valve The mitral valve is structurally normal. There is no evidence for a vegetation on the mitral valve. There is no mitral maximus nosis. There is trace mitral regurgitation. Tricuspid Valve The tricuspid valve is structurally norm al. There is no evidence of a vegetation on the tricuspid valve. There is trace t ricuspid regurgitation. Pulmonic Valve The pulmonic valve is not well visualize d. Great Arteries The aortic root is not well visualized. Venous Inferior vena cava is dilated. Inferior vena cava collapse greater than 50% with respiration. Pericardium/Pleural The pericardium appears normal. There is no pericardial effusion. Hemodynamics The peak right ventricular systolic pres sure is 42 mmHg. The estimated right atrial pressure is 8mmHg. Left ventricul ar filling pressure is indeterminate. Ejection Fraction ?2D Measurem ents ? Volumes LV Biplane EF: 64.2 % ? TAPSE_phl: 2 .3 cm ?EDV Biplane: 113.4 ml ? EDV Biplane Index: 52.1 ? ESV Biplane: 40.6 ml ? ESV Biplane Index: 18.6 Doppler TR max kari: 291.8 cm/sec RVSP(TR): 42.1 mmHg MV E max kari: 75.8 cm/sec MV A max kari: 78.7 cm/sec MV E/A: 0.96 MV dec time: 0.20 sec Lat Peak E' Kari: 9.8 cm/sec E/ e' (lat): 7.8 Med Peak E' Kari: 7.6 cm/sec E/e' (med): 10.0 E/e' Average: 8.9 I ?WMSI = 1.00 ? % Normal = 1 00 ?No LV segmental ?wall motion ?abnormalities. ?Segments ??Size X - Cannot ?2 - ?4 - ?1-2 ? small Interpret ?1 - Normal ?? Hypokinetic 3 - Akinetic Dyskinetic ?? 3-5 ? moderate 5 - ? 6-14 ?large Aneurysmal ?15-16 ?? diffuse Procedure Kirill Mills MD - 11/06/2021Formatti ng of this note might be different from the original. [facility] [address] [place] [address] Voice: Fax: Echocardiogram Report Name: LUIS MANUEL MOBLEY JR. Study Date: 11:28 AM Patient Location: [address] : 1960 Height: 177 cm Account: [id number] Age: 61 yrs Weight: 101 kg Gender: Male BSA: 2.2 m2 Ordering Physician: ZELALEM RICHARDSON Referring Physician: BEATRIZ MAURICE Performed By: Chelita Mehta RDCS Reason For Study: Bacteremia Interpreting Fellow: Emily Underwood. Exam Location: [facility]. Interpretation Summary 1. There are no vegetations seen on this study, if clinical suspicion for endocarditis remains, cons ider OLEKSANDR for further evaluation 2. Left ventricle is normal in size. LVE F is estimated at 64% by biplane. There are no wall motion abnormalities. 3. Right ventricle is milldly dilated wi th normal systolic function. 4. There is no pericardial effusion. Procedure Limited - [id number]. Satisfactory quality. T here is normal sinus rhythm. Tachycardia. Left Ventricle Left ventricle is of normal size. Left v entricular systolic function is normal. The left ventricular ejection fraction i s 64% by Tony's biplane. There are no segmental wall motion abnormalities. Right Ventricle Right ventricle is mildly dilated. Right ventricular systolic function is normal. Left Atrium The left atrium is probably normal. Right Atrium The right atrium is probably normal in s ize. Aortic Valve The aortic valve is structurally normal. There is no evidence for a vegetation on the aortic valve. The aortic valve is tr icuspid. There is no aortic stenosis. There is trace aortic regurgitation. Mitral Valve The mitral valve is structurally normal. There is no evidence for a vegetation on the mitral valve. There is no mitral maximus nosis. There is trace mitral regurgitation. Tricuspid Valve The tricuspid valve is structurally norm al. There is no evidence of a vegetation on the tricuspid valve. There is trace t ricuspid regurgitation. Pulmonic Valve The pulmonic valve is not well visualize d. Great Arteries The aortic root is not well visualized. Venous Inferior vena cava is dilated. Inferior vena cava collapse greater than 50% with respiration. Pericardium/Pleural The pericardium appears normal. There is no pericardial effusion. Hemodynamics The peak right ventricular systolic pres sure is 42 mmHg. The estimated right atrial pressure is 8mmHg. Left ventricul ar filling pressure is indeterminate. Ejection Fraction 2D Measurements Volume s LV Biplane EF: 64.2 % TAPSE_phl: 2.3 cm EDV Biplane: 113.4 ml EDV Biplane Index: 52.1 ESV Biplane: 40.6 ml ESV Biplane Index: 18.6 Doppler TR max kari: 291.8 cm/sec RVSP(TR): 42.1 mmHg MV E max kari: 75.8 cm/sec MV A max kari: 78.7 cm/sec MV E/A: 0.96 MV dec time: 0.20 sec Lat Peak E' Kari: 9.8 cm/sec E/ e' (lat): 7.8 Med Peak E' Kari: 7.6 cm/sec E/e' (med): 10.0 E/e' Average: 8.9 I WMSI = 1.00 % Normal = 100 No LV segmental wall motion abnormalities. Segments Size X - Cannot 2 - 4 - 1-2 small Interpret 1 - Normal Hypokinetic 3 - Stacie netic Dyskinetic 3-5 moderate 5 - 6-14 large Aneurysmal 15-16 diffuse Khloe Richardson MD ECHO ORDERABLES Performing Organization Address City/[facility]/ZIP Code Phon e Number [facility] Blood culture (11/06/2021 12:18 PM EDT) [facility] Method Time Signature Blood Culture No growth JIA MARX at 5 days. [facility] Specimen Anatomical Location Collection Method Collection Time Received Time (Source) / Laterality / Volume Blood ANTECUBITAL REGION 11/06/2021 12:18 11/06 1:22 STRUCTURE / Unknown PM EDT PM EDT Comment: #1 Resulting Agency Comment Spec In Lab Khloe Richardson MD MICROBIOLOGY - BLOOD ORDERAB LES Performing Organization Address City/[facility]/Z[place] [address] Prepare Platelets, Apheresis (11/06/2021 11:35 AM EDT) athologist Signature Dispensed? Yes [facility] Specimen Anatomical Collection Method Collection Time Receive d Time (Source) Location / / Volume Laterality Blood 11/06/2021 11:35 11/06/2021 AM EDT 11:32 AM EDT Khloe Richardson MD BLOOD BANK ORDERABLES Performing Organization Address City/[facility]/Z[place] [address] (ABNORMAL) Hemogram (11/06/2021 3:15 AM EDT) P athologist Signature WBC 0.0 4.0 - 9.5 [facility] (Critical) x10(3)/[facility] LABOR[facility]ORY Comment: Diff not performed-WBC Less miguel a n or equal to 0.25. RBC 2.38 (L) 4.58 - 5.54 x10(6)/[facility]ORY Hemoglobin 7.4 (L) 13.7 - 16.5 g/dL [facility] Hematocrit 20.6 (L) 40.5 - 48.5 % [facility] MCV 86.6 82.9 - 93.1 fL [facility] MCH 31.1 27.5 - 32.1 pg [facility] MCHC 35.9 (H) 32.0 - 35.7 g/dL [facility] Platelets 9 (Critical) 145 - 357 x10(3)/[facility] LABORATORY RDWSD 45.7 (H) 36.0 - 45.0 [facility] LABORATORY RDWCV 14.4 (H) 11.4 - 13.8 % [facility] MPV Not Measured 7.6 - 12.9 [facility] LABORATORY nRBC Abs Auto 0.000 0.000 - 0.000 x10(3)/[facility] LABORATORY Specimen Anatomical Collection Method Collection Time Receive d Time (Source) Location / / Volume Laterality Blood 11/06/2021 3:15 AM 2 3:30 EDT AM EDT Resulting Agency Comment Spec In Lab Parviz Modi MD HEMATOLOGY ORDERABLES Performing Organization Address City/State/Z[place] [address] IgG (11/06/2021 3:15 AM EDT) P athologist Signature IgG 936 700 - 1,600 [facility] mg/dL [facility] Comment: Pediatric Reference Intervals obtained f rom the [employer] Reference Interval project. [email or web address] Specimen Anatomical Collection Method Collection Time Receive d Time (Source) Location / / Volume Laterality Blood 11/06/2021 3:15 AM 2 3:30 EDT AM EDT Resulting Agency Comment Spec In Lab Parviz Modi MD IMMUNOLOGY ORDERABLES Performing Organization Address City/State/ZIP Code Phon e Number [address] Phosphorus (11/06/2021 3:15 AM EDT) athologist Signature Phosphorus 2.8 2.5 - 4.5 [facility] Specimen Anatomical Collection Method Collection Time Receive d Time (Source) Location / / Volume Laterality Blood 11/06/2021 3:15 AM 2 3:30 EDT AM EDT Resulting Agency Comment Spec In Lab Parviz Modi MD CHEMISTRY ORDERABLES Performing Organization Address City/[facility]/ZIP Code Phon e Number [address] Magnesium (11/06/2021 3:15 AM EDT) athologist Signature Magnesium 0.90 0.69 - 1.07 [facility] mmol/L [facility] Specimen Anatomical Collection Method Collection Time Receive d Time (Source) Location / / Volume Laterality Blood 11/06/2021 3:15 AM 2 3:30 EDT AM EDT Resulting Agency Comment Spec In Lab Parviz Modi MD CHEMISTRY ORDERABLES Performing Organization Address City/[facility] Center/ZIP [place] [address] (ABNORMAL) Basic Metabolic Panel (non-fasting) (11/06/2021 3:15 AM EDT) athologist Signature Glucose Lvl 123 65 - 199 [facility] mg/dL [facility] Comment: Diabetes: >=200 mg/dL plus symp toms BUN 34 (H) 10 - 20 mg/dL [facility] Creatinine 1.00 0.80 - 1.50 mg/dL [facility] Sodium 143 135 - 145 mmol/L [facility] Potassium 3.6 3.5 - 5.0 mmol/L [facility] Comment: Please note: ??Patients with WBC >100,00 0 may have falsely elevated Potassium levels. ??For accurate Potassium quantif ication in these patients send serum separator tube (gold top) for subsequent determinations. ??Contact the Clinical Chemistry Laboratory if there are any qu estions. Chloride 108 (H) 98 - 107 mmol/L [facility] CO2 23 22 - 31 mmol/L [facility] Anion Gap 12 5 - 15 mmol/L [facility] Calcium 8.6 8.5 - 10.5 mg/dL [facility] Estimated GFR 81 >=60 mL/min/1.73 m?? [facility] Comment: This patient? s estimated glomerular filtration rate (eGFR) is between 81 mL/min/1.73 m2 (patients with less muscl e mass per kg body weight) and 94 mL/min/1.73 m2 (patients with more muscl e [...] (Source) Location / / Volume Laterality Blood 11/06/2021 3:15 AM 2 3:30 EDT AM EDT Resulting Agency Comment Spec In Lab Parviz Modi MD CHEMISTRY ORDERABLES Performing Organization Address City/State/[place] [address] (ABNORMAL) Platelet count (11/05/2021 5:10 PM EDT) [facility] gist Method Time Signature Platelets 14 145 - 357 [facility] (Critical) x10(3)/[facility] LABORATORY Plat Immature 1.2 0.0 - 7.4 JIA MARX % % [facility] Comment: Limitation of the Immature Platelet Frac tion (IPF)-May be less reliable when the platelet count is less than 59h977/u L due to statistical imprecision. The IPF value provides an assessment of the Bone Marrow production status. ??It is useful in differentiating Thrombocyto penia caused by platelet destruction/consumption versus decreased production. It also helps to determine the imminent release of platelets and ca n be therefore a helpful parameter in Chemotherapy and Bone marrow transplant patients. ELEVATED IPF value: ?? When the bone marrow is in a state of over production such as when increased destruction and consumption are the unde rlying issue. ?? When the marrow is recovering post ch emotherapy or bone marrow transplant. LOW to NORMAL IPF value: ?? When the bone marrow in not respondin g and is in a decreased state of production. References: [employer] The Clinical Value of the Immature Platelet Fraction (IPF) in Cell Recovery Document Number [id number] 01/2011 [employer] The Role of the Imm ature Platelet Fraction (IPF) in the Differential Diagnosis of Thrombocytopen ia, Document MKT-10-1209 V05 P012/28 Specimen Anatomical Collection Method Collection Time Receive d Time (Source) Location / / Volume Laterality Blood 11/05/2021 5:10 PM 2 5:22 EDT PM EDT Resulting Agency Comment Spec In Lab Parviz Modi MD HEMATOLOGY ORDERABLES Performing Organization Address City/State/[place] [address] Transfuse 1 unit platelets, apheresis (11/05/2021 4:49 PM EDT) Khloe Richardson MD NURSING TREATMENT ORDERABLES - BLOOD ADMIN Transfuse 1 unit platelets, apheresis (11/05/2021 4:49 PM EDT) Khloe Richardson MD NURSING TREATMENT ORDERABLES - BLOOD ADMIN IR Line or Tube Removal in Recovery Room (11/05/2021 4:32 PM EDT) Anatomical Region Laterality Modality X-Ray Angiography Specimen (Source) Anatomical Location Collection Method / Collectio n Time Received Time / Laterality Volume Narrative 11/06/2021 2:46 PM EDT Interventional Radiology Procedure Note Procedure: Tunneled central venous sagar ter explant Indication: VRE bacteremia, discontinue durable intermediate central venous access Pre-procedure: Informed consent for the procedure including risks, benefits and alternatives was obtained a nd time-out was performed prior to the procedure. The site was prepared and draped using sterile barrier technique including sterile gloves, cap, mask, hand hygiene and cutaneous antisepsis. ?? Sedation: None Technique: Local anesthetic was administ ered at the catheter exit site. The catheter cuff was identified and juma ed from subcutaneous tissue with a combination of traction and blunt dissec tion. Catheter was withdrawn intact from the tunnel site. Hemostasis was achieved with manual compression. Clean and sterile dressing applied. Medications: Lidocaine 1% <10 cc subcuta neous, 1 U platelets IV Contrast: None Fluoroscopy time: None Estimated blood loss: 3 mL Complications: No immediate Impression: Removal of left internal jug ular, Feliciano Trifusion 12 Fr three-lumen cuffed ??catheter in its ent irety. Service provider: Kelli Tee Attending of Record: Deng Talbot MD 11/05/2021 Khloe Richardson MD IMG IR ORDERABLES Transfuse RBC (11/05/2021 1:24 PM EDT) Khloe Richardson MD NURSING TREATMENT ORDERABLES - BLOOD ADMIN Transfuse RBC (11/05/2021 1:24 PM EDT) Khloe Richardson MD NURSING TREATMENT ORDERABLES - BLOOD ADMIN Prepare Platelets, Apheresis (11/05/2021 12:50 PM EDT) P athologist Signature Dispensed? Yes [facility] Specimen Anatomical Collection Method Collection Time Receive d Time (Source) Location / / Volume Laterality Blood 11/05/2021 12:50 11/05/2021 PM EDT 12:49 PM EDT Khole Richardson MD BLOOD BANK ORDERABLES Performing Organization Address City/State/[place] [address] Blood culture (11/05/2021 9:35 AM EDT) [facility] [employer] Method Time Signature Blood Culture No growth JIA MARX at 5 days. [facility]OR[facility] Specimen Anatomical Collection Method Collection Time Receive d Time (Source) Location / / Volume Laterality Blood STRUCTURE OF LEFT 11/05/2021 9:35 AM 10/16 HAND / Unknown EDT 10:41 AM EDT Comment: #2 Resulting Agency Comment Spec In Lab Khloe Richardson MD MICROBIOLOGY - BLOOD ORDERAB LES Performing Organization Address City/[facility]/ZIP [place] [address] Blood culture (11/05/2021 9:28 AM EDT) [facility] [employer] Method Time Signature Blood Culture No growth JIA MARX at 5 days. [facility] Specimen Anatomical Collection Method Collection Time Receive d Time (Source) Location / / Volume Laterality Blood STRUCTURE OF LEFT 11/05/2021 9:28 AM 10/16 UPPER LIMB / EDT 10:41 AM EDT Unknown Comment: #1 Resulting Agency Comment Spec In Lab Khloe Richardson MD MICROBIOLOGY - BLOOD ORDERAB LES Performing Organization Address City/[facility]/ZIP Code Phon e Number [address] Prepare RBC (11/05/2021 7:40 AM EDT) P athologist Signature Dispensed? Yes [facility] Specimen Anatomical Collection Method Collection Time Receive d Time (Source) Location / / Volume Laterality Blood 11/05/2021 7:40 AM 7:39 EDT AM EDT Khloe Richardson MD BLOOD BANK ORDERABLES Performing Organization Address City/[facility]/ZIP Code Phon e Number [address] Scan, Peripheral Blood (11/05/2021 3:05 AM EDT) [facility] [employer] Method Time Signature Plat Estimate Decreased [facility] RBC Morphology Abnormal [facility] Microcytes 1-5 /HPF [facility] Hypochromia Slight [facility] Ovalocytes 1-5 /HPF [facility] Tear Drop Cells 1-5 /HPF [facility] Specimen Anatomical Collection Method Collection Time Receive d Time (Source) Location / / Volume Laterality Blood 11/05/2021 3:05 AM 2 3:13 EDT AM EDT Resulting Agency Comment Spec In Lab Parviz Modi MD HEMATOLOGY ORDERABLES Performing Organization Address City/State/ZIP Code Phon e Number [place] [id number] (ABNORMAL) Hemogram (11/05/2021 3:05 AM EDT) P athologist Signature WBC 0.0 4.0 - 9.5 [facility] (Critical) x10(3)/[facility] LABORATORY Comment: Diff not performed-WBC Less miguel a n or equal to 0.25. RBC 2.12 (L) 4.58 - 5.54 x10(6)/[facility] LABORATORY Hemoglobin 6.7 (L) 13.7 - 16.5 g/dL [facility] LABORATORY Hematocrit 18.4 (L) 40.5 - 48.5 % [facility]ATORY MCV 86.8 82.9 - 93.1 [facility] LABORATORY MCH 31.6 27.5 - 32.1 pg [facility]ORY MCHC 36.4 (H) 32.0 - 35.7 g/dL [facility]ORATORY Platelets 13 (Critical) 145 - 357 x10(3)/[facility] LABORATORY RDWSD 47.2 (H) 36.0 - 45.0 [facility] LABORATORY RDWCV 14.7 (H) 11.4 - 13.8 % [facility] LABORATORY MPV Not Measured 7.6 - 12.9 [facility] LABORATORY nRBC Abs Auto 0.000 0.000 - 0.000 x10(3)/[facility] LABORATORY Specimen Anatomical Collection Method Collection Time Receive d Time (Source) Location / / Volume Laterality Blood 11/05/2021 3:05 AM 2 3:13 EDT AM EDT Resulting Agency Comment Spec In Lab Parviz Modi MD HEMATOLOGY ORDERABLES Performing Organization Address City/[facility]/ZIP Code Phon e Number [address] Phosphorus (11/05/2021 3:05 AM EDT) P athologist Signature Phosphorus 3.0 2.5 - 4.5 [facility] mg/dL [facility] LABORATORY Specimen Anatomical Collection Method Collection Time Receive d Time (Source) Location / / Volume Laterality Blood 11/05/2021 3:05 AM 2 3:13 EDT AM EDT Resulting Agency Comment Spec In Lab Parviz Modi MD CHEMISTRY ORDERABLES Performing Organization Address City/[facility]/ZIP Code Phon e Number [address] Magnesium (11/05/2021 3:05 AM EDT) P athologist Signature Magnesium 0.91 0.69 - 1.07 [facility] mmol/L [facility] LABORATORY Specimen Anatomical Collection Method Collection Time Receive d Time (Source) Location / / Volume Laterality Blood 11/05/2021 3:05 AM 2 3:13 EDT AM EDT Resulting Agency Comment Spec In Lab Parviz Modi MD CHEMISTRY ORDERABLES Performing Organization Address City/[facility]/ZIP [place] [address] (ABNORMAL) Basic Metabolic Panel (non-fasting) (11/05/2021 3:05 AM EDT) P athologist Signature Glucose Lvl 131 65 - 199 [facility] mg/dL [facility] Comment: Diabetes: >=200 mg/dL plus symp toms BUN 36 (H) 10 - 20 mg/dL [facility] Creatinine 1.23 0.80 - 1.50 mg/dL [facility]ORY Sodium 144 135 - 145 mmol/L [facility] Potassium 3.4 (L) 3.5 - 5.0 mmol/L [facility] Comment: Please note: ??Patients with WBC >100,00 0 may have falsely elevated Potassium levels. ??For accurate Potassium quantif ication in these patients send serum separator tube (gold top) for subsequent determinations. ??Contact the Clinical Chemistry Laboratory if there are any qu estions. Chloride 107 98 - 107 mmol/L [facility] CO2 23 22 - 31 mmol/L [facility] Anion Gap 14 5 - 15 mmol/L [facility] Calcium 8.6 8.5 - 10.5 mg/dL [facility] Estimated GFR 63 >=60 mL/min/1.73 m?? [facility] Comment: This patient? s estimated glomerular filtration rate (eGFR) is between 63 mL/min/1.73 m2 (patients with less muscl e mass per kg body weight) and 73 mL/min/1.73 m2 (patients with more muscl e [...] (Source) Location / / Volume Laterality Blood 11/05/2021 3:05 AM 2 3:13 EDT AM EDT Resulting Agency Comment Spec In Lab Parviz Modi MD CHEMISTRY ORDERABLES Performing Organization Address City/State/[place] [address] Prepare Platelets, Apheresis (11/04/2021 4:30 PM EDT) athologist Signature Dispensed? No [facility] Specimen Anatomical Collection Method Collection Time Receive d Time (Source) Location / / Volume Laterality Blood 11/04/2021 4:30 PM 2 4:29 EDT PM EDT Khloe Richardson MD BLOOD BANK ORDERABLES Performing Organization Address City/State/ZIP [place] [address] PICC Line: Contact Vascular Access Page [phone] Extremity to exclude: No restrictions; Is PICC procedure required PRIOR to patients discharge? Yes (11/04/2021 4:22 PM EDT) Narrative Kat Pak RN - 11/04/2021 4:22 PM E DT Kat Pak RN ? 11/04/2021 ??4:25 PM PICC/Midline Insertion Procedure Note Indications: Medication Administration This insertion was not to replace a malf unctioning catheter. This insertion was not due to a suspecte d line-associated infection. Location of Procedure: X-Ray Room 11 Risks and Benefits: The risks and benefits of this procedure were reviewed and informed consent was obtained obtained. Time Out: Prior to the start of the procedure, the patient's identity, intended procedure, site/side, correct p atient positioning and presence of the site heber was confirmed as applicable. The medical history and chart were reviewed to rule out potential contraindications to the planned procedu re. Hand Hygiene: The multi site leasing consultant did perform hand hygiene pr ior to line insertion. Catheter type: PICC Lot number: [id number] Procedure Technique: Skin was prepped with povidone-iodine ?? and alcohol. Skin preparation agent was completely dr y at the time of first skin puncture. The following barrier precaution methods were used:large sterile drape, maske/eye shield, large sterile g own, sterile gloves and cap. 3 ml of 1% Lidocaine was used for skin w heal. Ultrasound was used for guidance. ??Radiographic contrast ag ent was not injected for vein identification. Procedure Details: Order received for catheter placement. A 5 Fr. double lumen Bard Power catheter was placed into the right brachial vein over a 0.018 inch guidewire using modified seld mat technique and fluoroscopy. Arm circumference was 35 cm at 2 cm above the insertion site. Final catheter length (with trimming): 3 9 cm Internal: 39 cm External: 0 cm Tip in SVC per Kiran The line was not placed over a guidewire . Post Procedure: Diagnosis: AML Blood return noted on aspiration of line after placement confirmed. 5 mls of normal saline infuse d free flowing to gravity via PICC after insertion. Sterile dressi ng applied: Sorbaview. Findings: The patient did tolerate the procedure w ell. No Complications. Procedure Comments: NO BIOPATCH OR CHG GEL D/T ALLERGY KAT PAK RN 11/04/2021 Khloe Richardson MD PROCEDURE/MINOR SURGICAL ORD ERABLES XR PICC Placement Over 5 Years with Imaging Guidance (IV Team) (11/04/2021 4:06 PM EDT) Anatomical Region Laterality Modality N/A Radio Fluoroscopy Specimen (Source) Anatomical Location Collection Method / Collectio n Time Received Time / Laterality Volume Impressions 11/04/2021 4:10 PM EDT Well-positioned right-sided PICC line. Thank you for letting us participate in the care of this patient. ??If you are a health care provider and have any questi ons regarding this report, please contact the number below. ??For patients who have questions please contact the health resident care supervisor that requested your imaging first. ? Electronically signed by: Allyssa Gonzalez, [facility] ([phone]), at 11/04/2021 4:10 PM Narrative 11/04/2021 4:10 PM EDT EXAMINATION: XR PICC PLACEMENT OVER 5 YEARS WITH IMAGING GUIDANCE (IV TEAM) CLINICAL HISTORY: Confirmation of PICC l ine placement TECHNIQUE: C-arm placement of PICC line. Limited view of the line tip only. COMPARISON: FINDINGS: Intraprocedural frontal radiog raph of the mediastinum demonstrates a right-sided PICC line, with the catheter tip projected at the SVC/right atrial junction. Procedure Note Lobo Beck MD - 11/04/2021Formattin g of this note might be different from the original. EXAMINATION: XR PICC PLACEMENT OVER 5 YE ARS WITH IMAGING GUIDANCE (IV TEAM) CLINICAL HISTORY: Confirmation of PICC l ine placement TECHNIQUE: C-arm placement of PICC line. Limited view of the line tip only. COMPARISON: FINDINGS: Intraprocedural frontal radiog raph of the mediastinum demonstrates a right-sided PICC line, with the catheter tip projected at the SVC/right atrial junction. IMPRESSION Well-positioned right-sided PICC line. Thank you for letting us participate in the care of this patient. If you are a health care provider and have any questi ons regarding this report, please contact the number below. For patients w ho have questions please contact the health resident care supervisor that requested your imaging first. Electronically signed by: Allyssa Gonzalez, [facility] ([phone]), at 11/04/2021 4:10 PM Khloe Richardson MD IMG FLUORO ORDERABLES (ABNORMAL) Platelet count (11/04/2021 2:50 PM EDT) [facility] gist Method Time Signature Platelets 15 145 - 357 [facility] (Critical) x10(3)/[facility] LABORATORY Plat Immature 2.7 0.0 - 7.4 [place]IA [place] % % [facility] LABORATORY Comment: Limitation of the Immature Platelet Frac tion (IPF)-May be less reliable when the platelet count is less than 68p413/u L due to statistical imprecision. The IPF value provides an assessment of the Bone Marrow production status. ??It is useful in differentiating Thrombocyto penia caused by platelet destruction/consumption versus decreased production. It also helps to determine the imminent release of platelets and ca n be therefore a helpful parameter in Chemotherapy and Bone marrow transplant patients. ELEVATED IPF value: ?? When the bone marrow is in a state of over production such as when increased destruction and consumption are the unde rlying issue. ?? When the marrow is recovering post ch emotherapy or bone marrow transplant. LOW to NORMAL IPF value: ?? When the bone marrow in not respondin g and is in a decreased state of production. References: [employer] The Clinical Value of the Immature Platelet Fraction (IPF) in Cell Recovery Document Number [id number] 01/2011 [employer] The Role of the Imm ature Platelet Fraction (IPF) in the Differential Diagnosis of Thrombocytopen ia, Document MKT-10-1209 V05 P012/28 Specimen Anatomical Collection Method Collection Time Receive d Time (Source) Location / / Volume Laterality Blood 11/04/2021 2:50 PM 3:15 EDT PM EDT Resulting Agency Comment Spec In Lab Parviz Modi MD HEMATOLOGY ORDERABLES Performing Organization Address City/[facility]/ZIP Code Phon e Number [address] Transfuse 1 unit platelets, apheresis (11/04/2021 2:48 PM EDT) Khloe Richardson MD NURSING TREATMENT ORDERABLES - BLOOD ADMIN Transfuse 1 unit platelets, apheresis (11/04/2021 2:48 PM EDT) Khloe Richardson MD NURSING TREATMENT ORDERABLES - BLOOD ADMIN Tacrolimus level (11/04/2021 12:00 PM EDT) athologist Signature Tacrolimus Lvl 7.8 ng/mL [facility] Comment: Trough therapeutic range is [...] (Source) Location / / Volume Laterality Blood 11/04/2021 12:00 11/04/2021 PM EDT 12:13 PM EDT Resulting Agency Comment Spec In Lab Parviz Modi MD CHEMISTRY ORDERABLES Performing Organization Address City/[facility] Phon e Number [address] Prepare Platelets, Apheresis (11/04/2021 11:30 AM EDT) P athologist Signature Dispensed? Yes [facility] LABOR[facility]ORY Specimen Anatomical Collection Method Collection Time Receive d Time (Source) Location / / Volume Laterality Blood 11/04/2021 11:30 11/04/2021 AM EDT 11:29 AM EDT Khloe Richardson MD BLOOD BANK ORDERABLES Performing Organization Address City/State/[place] [address] XR Chest One View (11/04/2021 8:50 AM EDT) Anatomical Region Laterality Modality Chest N/A Digital Radiography Specimen (Source) Anatomical Location Collection Method / Collectio n Time Received Time / Laterality Volume Impressions 11/04/2021 9:17 AM EDT Radiographically the left basilar airspace opacity seen on 11/02/2021 has resolved and findings are now similar co mpared to a radiograph from 10/19/2021. However, it is uncertain to which extent the mild opacities seen on CT 11/03/2021 still persist or have resolved (due to d ifference in technique). Within the limitation of single frontal view the change in positioning of the left subclavian central venous catheter in comparison to 10/19/2021 is due to the fact that the tip has flipped into the a zygos vein (unchanged to 11/02/2021). Please correlate clinically if functiona lity of this catheter remains adequate. Thank you for letting us participate in the care of this patient. ??If you are a health care provider and have any questi ons regarding this report, please contact the number below. ??For patients who have questions please contact the health resident care supervisor that requested your imaging first. ? Electronically signed by: Elizabeth Worthington MD, [facility] [place] ([phone]), at 11/04/2021 9:17 AM Narrative 11/04/2021 9:17 AM EDT EXAMINATION: XR CHEST ONE VIEW CLINICAL HISTORY: 61 yr with AML admitte d for allo HCST, having neutropenic fever, Ill defined opacities in lingula may represent pneumonia seen on CT A/P yesterday TECHNIQUE: 1 view of the chest COMPARISON: Chest radiograph 11/02/2021. Abdomen CT FINDINGS: Left basilar airspace opacity seen on has resolved. Central pulmonary vessels, daina, and cardiac mediastinal s ilhouette are stable compared to the prior exam. No obvious effusion. Right-s ided port catheter ends at the superior cavoatrial junction. Left subclavian cat heter has flipped into the azygos vein (when compared to 10/19/2021). Procedure Note Elizabeth Frank MD - 2021 EXAMINATION: XR CHEST ONE VIEW CLINICAL HISTORY: 61 yr with AML admitte d for allo HCST, having neutropenic fever, Ill defined opacities in lingula may represent pneumonia seen on CT A/P yesterday TECHNIQUE: 1 view of the chest COMPARISON: Chest radiograph 11/02/2021. Abdomen CT FINDINGS: Left basilar airspace opacity seen on has resolved. Central pulmonary vessels, daina, and cardiac mediastinal s ilhouette are stable compared to the prior exam. No obvious effusion. Right-s ided port catheter ends at the superior cavoatrial junction. Left subclavian cat heter has flipped into the azygos vein (when compared to 10/19/2021). IMPRESSION Radiographically the left basilar airspa ce opacity seen on 11/02/2021 has resolved and findings are now similar co mpared to a radiograph from 10/19/2021. However, it is uncertain to which extent the mild opacities seen on CT 11/03/2021 still persist or have resolved (due to d ifference in technique). Within the limitation of single frontal view the change in positioning of the left subclavian central venous catheter in comparison to 10/19/2021 is due to the fact that the tip has flipped into the a zygos vein (unchanged to 11/02/2021). Please correlate clinically if functiona lity of this catheter remains adequate. Thank you for letting us participate in the care of this patient. If you are a health care provider and have any questi ons regarding this report, please contact the number below. For patients w ho have questions please contact the health resident care supervisor that requested your imaging first. Electronically signed by: Elizabeth Worthington MD, [facility] [place] ([phone]), at 11/04/2021 9:17 AM Khloe Richardson MD IMG DX ORDERABLES Transfuse RBC (11/04/2021 7:33 AM EDT) Urban Dos Santos MD NURSING TREATMENT ORDERABLES - BLOOD ADMIN Transfuse RBC (11/04/2021 7:33 AM EDT) Urban Dos Santos MD NURSING TREATMENT ORDERABLES - BLOOD ADMIN Prepare RBC (11/04/2021 4:10 AM EDT) athologist Signature Dispensed? Yes [facility] Specimen Anatomical Collection Method Collection Time Receive d Time (Source) Location / / Volume Laterality Blood 11/04/2021 4:10 AM 4:08 EDT AM EDT Urban Dos Santos MD BLOOD BANK ORDERABLES Performing Organization Address City/State/[place] [address] (ABNORMAL) Hemogram (11/04/2021 3:40 AM EDT) P athologist Signature WBC 0.0 4.0 - 9.5 [facility] (Critical) x10(3)/[facility] LABORATORY Comment: Diff not performed-WBC Less miguel a n or equal to 0.25. RBC 1.91 (L) 4.58 - 5.54 x10(6)/[facility] LABORATORY Hemoglobin 5.9 (Critical) 13.7 - 16.5 g/dL [facility] Comment: This result has been called to RADHA JACKSON by Howard Cardenas on 11 04 2021 at 0403, and has been read back. Hematocrit 16.8 (L) 40.5 - 48.5 % [facility] MCV 88.0 82.9 - 93.1 fL [facility] MCH 30.9 27.5 - 32.1 pg [facility] MCHC 35.1 32.0 - 35.7 g/dL [facility] Platelets 13 (Critical) 145 - 357 x10(3)/[facility] LABORATORY RDWSD 51.0 (H) 36.0 - 45.0 [facility] LABORATORY RDWCV 15.8 (H) 11.4 - 13.8 % [facility] MPV Not Measured 7.6 - 12.9 [facility] LABORATORY nRBC Abs Auto 0.000 0.000 - 0.000 [facility] x10(3)/[facility] LABORATORY Specimen Anatomical Collection Method Collection Time Receive d Time (Source) Location / / Volume Laterality Blood 11/04/2021 3:40 AM 2 3:48 EDT AM EDT Resulting Agency Comment Spec In Lab Parviz Modi MD HEMATOLOGY ORDERABLES Performing Organization Address City/[facility]/ZIP Code Phon e Number [address] Phosphorus (11/04/2021 3:40 AM EDT) P athologist Signature Phosphorus 2.5 2.5 - 4.5 [facility] Specimen Anatomical Collection Method Collection Time Receive d Time (Source) Location / / Volume Laterality Blood 11/04/2021 3:40 AM 2 3:48 EDT AM EDT Resulting Agency Comment Spec In Lab Parviz Modi MD CHEMISTRY ORDERABLES Performing Organization Address City/[facility]/ZIP Code Phon e Number [address] Magnesium (11/04/2021 3:40 AM EDT) P athologist Signature Magnesium 0.85 0.69 - 1.07 [facility] mmol/L [facility] Specimen Anatomical Collection Method Collection Time Receive d Time (Source) Location / / Volume Laterality Blood 11/04/2021 3:40 AM 2 3:48 EDT AM EDT Resulting Agency Comment Spec In Lab Parviz Modi MD CHEMISTRY ORDERABLES Performing Organization Address City/State/[place] [address] (ABNORMAL) Basic Metabolic Panel (non-fasting) (11/04/2021 3:40 AM EDT) athologist Signature Glucose Lvl 130 65 - 199 [facility] mg/dL [facility] Comment: Diabetes: >=200 mg/dL plus symp toms BUN 36 (H) 10 - 20 mg/dL [facility] Creatinine 1.35 0.80 - 1.50 mg/dL [facility] Sodium 140 135 - 145 mmol/L [facility] Potassium 3.4 (L) 3.5 - 5.0 mmol/L [facility] Comment: Please note: ??Patients with WBC >100,00 0 may have falsely elevated Potassium levels. ??For accurate Potassium quantif ication in these patients send serum separator tube (gold top) for subsequent determinations. ??Contact the Clinical Chemistry Laboratory if there are any qu estions. Chloride 108 (H) 98 - 107 mmol/L [facility] CO2 21 (L) 22 - 31 mmol/L [facility] Anion Gap 11 5 - 15 mmol/L [facility] Calcium 8.8 8.5 - 10.5 mg/dL [facility] Estimated GFR 56 (L) >=60 mL/min/1.73 m?? [facility] Comment: This patient? s estimated glomerular filtration rate (eGFR) is between 56 mL/min/1.73 m2 (patients with less muscl e mass per kg body weight) and 65 mL/min/1.73 m2 (patients with more muscl e [...] (Source) Location / / Volume Laterality Blood 11/04/2021 3:40 AM 2 3:48 EDT AM EDT Resulting Agency Comment Spec In Lab Parviz Modi MD CHEMISTRY ORDERABLES Performing Organization Address City/State/[place] [address] Abdomen & Pelvis w Contrast (11/03/2021 7:49 PM EDT) Anatomical Region Laterality Modality Abdomen, Pelvis Computed Tomography Specimen (Source) Anatomical Collection Method Collection Time Re ceived Time Location / / Volume Laterality 11/03/2021 8:10 PM EDT Impressions 11/03/2021 8:25 PM EDT 1. ??Ill defined opacities in lingula ma y represent pneumonia. Consider follow-up chest x-ray if indicated. 2. ??No abdominal or pelvic abscess seen . 3. ??Hiatal hernia with fat stranding ar ound a thick walled and dilated distal esophagus. Finding may represent esophag itis. 4. ??Resolution of splenomegaly. 5. ??No enlarged abdominal and pelvic ly mph nodes. 6. ??No abdominal or pelvic ascites. Thank you for letting us participate in the care of this patient. ??If you are a health care provider and have any questi ons regarding this report, please contact the number below. ??For patients who have questions please contact the health resident care supervisor that requested your imaging first. ? Narrative 11/03/2021 8:25 PM EDT EXAMINATION: CT ABDOMEN AND PELVIS W CONTRAST CLINICAL HISTORY: Abdominal abscess/infe ction suspected 61 yr with AML admitted for allo HCST, a lso has hx of c. 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 Omnipaque 350-118 mL administered intrav enously. Oral contrast was not administered. COMPARISON: Abdomen pelvic CT, June 2021. FINDINGS: Lower chest: The tip of a central venous catheter is in the RIGHT atrium. Trace RIGHT pleural effusion. No pericardial effusion. Groundglass opacities in LEFT lung base most prominent in the lingula, series 3 image 1. Findings suspicious for infecti on. Hiatal hernia with new esophageal wall t hickening and periesophageal fat stranding. air and fluid mixture in the dilated and thick walled distal esophagus, series 3 image 1. Several sma ll paraesophageal lymph node is similar to last examination fissuring is 7 mm sh ort axis series 3 image 1. Liver: The liver is 18 cm in length. Nor mal attenuation without mass lesion. Bile ducts: Nondilated. Gallbladder: No calcified gallstones. No rmal caliber wall. Pancreas: Normal attenuation without gayathri stephan dilatation. Spleen: resolution of splenomegaly.The s pleen is now 13 cm length Small hypodensities in spleen tip is smaller a nd likely represent resolving splenic infarct. The perisplenic fat stranding i s also resolved. Adrenals: Normal. Kidneys: Symmetric renal size and nephro gram. No calculi or dilated collecting system. Urinary Bladder: Normal. Vasculature: No aneurysm. Lymph Nodes: No enlarged retroperitoneal and mesenteric lymph nodes. Bowel: Total colectomy with a RIGHT lowe r quadrant ileostomy. No intestinal dilatation. No wall thickening. ?? Peritoneum and mesentery: No ascites, fr ee air, or loculated fluid collection. No mesenteric inflammation. Abdominal wall: Normal. Reproductive organs: Enlarged prostate g land, 65 x 59 mm, indenting on the bladder base. Osseous structures: No pathologic fracture or focal lesion o f bone. 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 Procedure Note Daniela Roach MD - 11/03/2021Formatt ing of this note might be different from the original. EXAMINATION: CT ABDOMEN AND PELVIS W CON TRAST CLINICAL HISTORY: Abdominal abscess/infe ction suspected 61 yr with AML admitted for allo HCST, a lso has hx of c. 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 Omnipaque 350-118 mL administered intrav enously. Oral contrast was not administered. COMPARISON: Abdomen pelvic CT, June 2021. FINDINGS: Lower chest: The tip of a central venous catheter is in the RIGHT atrium. Trace RIGHT pleural effusion. No pericardial effusion. Groundglass opacities in LEFT lung base most prominent in the lingula, series 3 image 1. Findings suspicious for infecti on. Hiatal hernia with new esophageal wall t hickening and periesophageal fat stranding. air and fluid mixture in the dilated and thick walled distal esophagus, series 3 image 1. Several sma ll paraesophageal lymph node is similar to last examination fissuring is 7 mm sh ort axis series 3 image 1. Liver: The liver is 18 cm in length. Nor mal attenuation without mass lesion. Bile ducts: Nondilated. Gallbladder: No calcified gallstones. No rmal caliber wall. Pancreas: Normal attenuation without gayathri stephan dilatation. Spleen: resolution of splenomegaly.The s pleen is now 13 cm length Small hypodensities in spleen tip is smaller a nd likely represent resolving splenic infarct. The perisplenic fat stranding i s also resolved. Adrenals: Normal. Kidneys: Symmetric renal size and nephro gram. No calculi or dilated collecting system. Urinary Bladder: Normal. Vasculature: No aneurysm. Lymph Nodes: No enlarged retroperitoneal and mesenteric lymph nodes. Bowel: Total colectomy with a RIGHT lowe r quadrant ileostomy. No intestinal dilatation. No wall thickening. Peritoneum and mesentery: No ascites, fr ee air, or loculated fluid collection. No mesenteric inflammation. Abdominal wall: Normal. Reproductive organs: Enlarged prostate g land, 65 x 59 mm, indenting on the bladder base. Osseous structures: No pathologic fracture or focal lesion o f bone. 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 IMPRESSION 1. Ill defined opacities in lingula may represent pneumonia. Consider follow-up chest x-ray if indicated. 2. No abdominal or pelvic abscess seen. 3. Hiatal hernia with fat stranding arou nd a thick walled and dilated distal esophagus. Finding may represent esophag itis. 4. Resolution of splenomegaly. 5. No enlarged abdominal and pelvic lymp h nodes. 6. No abdominal or pelvic ascites. Thank you for letting us participate in the care of this patient. If you are a health care provider and have any questi ons regarding this report, please contact the number below. For patients w ho have questions please contact the health resident care supervisor that requested your imaging first. Electronically signed by: Daniela Roach MD, [facility] ([phone]), at 11/03/2021 8:25 PM Urban Dos Santos MD IMG CT ORDERABLES (ABNORMAL) Platelet count (11/03/2021 1:35 PM EDT) [facility] Method Time Signature Platelets 18 145 - 357 JIA ARASELI (Critical) x10(3)/[facility] LABORATORY Plat Immature 1.2 0.0 - 7.4 Viverae % % [facility]ORY Comment: Limitation of the Immature Platelet Frac tion (IPF)-May be less reliable when the platelet count is less than 63w669/u L due to statistical imprecision. The IPF value provides an assessment of the Bone Marrow production status. ??It is useful in differentiating Thrombocyto penia caused by platelet destruction/consumption versus decreased production. It also helps to determine the imminent release of platelets and ca n be therefore a helpful parameter in Chemotherapy and Bone marrow transplant patients. ELEVATED IPF value: ?? When the bone marrow is in a state of over production such as when increased destruction and consumption are the unde rlying issue. ?? When the marrow is recovering post ch emotherapy or bone marrow transplant. LOW to NORMAL IPF value: ?? When the bone marrow in not respondin g and is in a decreased state of production. References: [employer] The Clinical Value of the Immature Platelet Fraction (IPF) in Cell Recovery Document Number [id number] 01/2011 [employer] The Role of the Imm ature Platelet Fraction (IPF) in the Differential Diagnosis of Thrombocytopen ia, Document [id number] V05// P05/14 Specimen Anatomical Collection Method Collection Time Receive d Time (Source) Location / / Volume Laterality Blood 11/03/2021 1:35 PM 2 1:41 EDT PM EDT Resulting Agency Comment Spec In Lab Parviz Modi MD HEMATOLOGY ORDERABLES Performing Organization Address City/[facility]/ZIP Code Phon e Number [address] Transfuse 1 unit platelets, apheresis (11/03/2021 7:28 AM EDT) Urban Dos Santos MD NURSING TREATMENT ORDERABLES - BLOOD ADMIN Transfuse 1 unit platelets, apheresis (11/03/2021 7:28 AM EDT) Urban Dos Santos MD NURSING TREATMENT ORDERABLES - BLOOD ADMIN Prepare Platelets, Apheresis (11/03/2021 5:40 AM EDT) athologist Signature Dispensed? Yes [facility] Specimen Anatomical Collection Method Collection Time Receive d Time (Source) Location / / Volume Laterality Blood 11/03/2021 5:40 AM 2 5:38 EDT AM EDT Urban Dos Santos MD BLOOD BANK ORDERABLES Performing Organization Address City/[facility]/ZIP Code Phon e Number [address] Type and Screen Validity (11/03/2021 4:27 AM EDT) [facility] gist Method Time Signature T&S only valid [facility] LABORATORY Comment: This Type and Screen result is only valid at the [facility] Specimen Anatomical Collection Method Collection Time Receive d Time (Source) Location / / Volume Laterality Blood Venous Draw / 11/03/2021 4:27 AM 11/04/19 4:51 Unknown EDT AM EDT Resulting Agency Comment Spec In Lab Urban Dos Snatos MD BLOOD BANK ORDERABLES Performing Organization Address City/[facility]/ZIP Code Phon e Number [address] ABORH Recheck Status (11/03/2021 4:27 AM EDT) [facility] gist Method Time Signature ABORH Type Completed [facility] LABORATORY Specimen Anatomical Collection Method Collection Time Receive d Time (Source) Location / / Volume Laterality Blood Venous Draw / 11/03/2021 4:27 AM 11/04/19 4:51 Unknown EDT AM EDT Resulting Agency Comment Spec In Lab Urban Dos Santos MD BLOOD BANK ORDERABLES Performing Organization Address City/[facility] [place] [address] Antibody screen manual (11/03/2021 4:27 AM EDT) Analysis Performed At Path logist Time Signature AB Screen Negative [facility] LABORATORY Specimen Anatomical Collection Method Collection Time Receive d Time (Source) Location / / Volume Laterality Blood Venous Draw / 11/03/2021 4:27 AM 11/04/19 4:51 Unknown EDT AM EDT Resulting Agency Comment Spec In Lab Urban Dos Santos MD BLOOD BANK ORDERABLES Performing Organization Address [facility] [place] [address] ABORh Type Manual (11/03/2021 4:27 AM EDT) [facility] Mobvoi Method Time Signature Expires at 11/06/2021 [facility] [id number] on: [facility] ABORh Type O Pos [facility] Comment: 11/03/2021 05:47 ??[facility] Allogeneic Transplant Recipient: 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 Recipient pre-Transplant ABORH: O Pos Donor ABORH: ??O Neg Any questions/concerns call Ext [phone]. Specimen Anatomical Collection Method Collection Time Receive d Time (Source) Location / / Volume Laterality Blood Venous Draw / 11/03/2021 4:27 AM 11/04/19 4:51 Unknown EDT AM EDT Resulting Agency Comment Spec In Lab Urban Dos Santos MD BLOOD BANK ORDERABLES Performing Organization Address City/[facility]/[place] [address] (ABNORMAL) Hemogram (11/03/2021 4:15 AM EDT) athologist Signature WBC 0.1 4.0 - 9.5 [facility] (Critical) x10(3)/[facility] LABORATORY Comment: Diff not performed-WBC Less miguel a n or equal to 0.25. RBC 2.10 (L) 4.58 - 5.54 x10(6)/[facility] LABORATORY Hemoglobin 6.6 (L) 13.7 - 16.5 g/dL [facility] LAB[facility]ORY Hematocrit 18.3 (L) 40.5 - 48.5 % [facility] MCV 87.1 82.9 - 93.1 [facility] LABORATORY MCH 31.4 27.5 - 32.1 pg [facility] MCHC 36.1 (H) 32.0 - 35.7 g/dL [facility] Platelets 14 (Critical) 145 - 357 x10(3)/[facility] LABORATORY RDWSD 51.8 (H) 36.0 - 45.0 [facility] LABORATORY RDWCV 16.1 (H) 11.4 - 13.8 % [facility] LAB[facility]ATORY MPV Not Measured 7.6 - 12.9 [facility] LABORATORY nRBC Abs Auto 0.000 0.000 - 0.000 x10(3)/[facility] LABORATORY Specimen Anatomical Collection Method Collection Time Receive d Time (Source) Location / / Volume Laterality Blood 11/03/2021 4:15 AM 4:55 EDT AM EDT Resulting Agency Comment Spec In Lab Parviz Modi MD HEMATOLOGY ORDERABLES Performing Organization Address City/State/Z[place] [address] CK (11/03/2021 4:15 AM EDT) athologist Signature CK, Total 41 0 - 200 JIA ARASELI unit/L [facility] LABORATORY Specimen Anatomical Collection Method Collection Time Receive d Time (Source) Location / / Volume Laterality Blood 11/03/2021 4:15 AM 2 4:55 EDT AM EDT Resulting Agency Comment Spec In Lab Urban Dos Santos MD CHEMISTRY ORDERABLES Performing Organization Address City/[facility]/ZIP Code Phon e Number [address] Phosphorus (11/03/2021 4:15 AM EDT) athologist Signature Phosphorus 2.9 2.5 - 4.5 [facility]ORY Specimen Anatomical Collection Method Collection Time Receive d Time (Source) Location / / Volume Laterality Blood 11/03/2021 4:15 AM 2 4:55 EDT AM EDT Resulting Agency Comment Spec In Lab Parviz Modi MD CHEMISTRY ORDERABLES Performing Organization Address City/[facility]/ZIP [place] [address] Magnesium (11/03/2021 4:15 AM EDT) athologist Signature Magnesium 0.73 0.69 - 1.07 [facility]/L [facility] Specimen Anatomical Collection Method Collection Time Receive d Time (Source) Location / / Volume Laterality Blood 11/03/2021 4:15 AM 2 4:55 EDT AM EDT Resulting Agency Comment Spec In Lab Parviz Modi MD CHEMISTRY ORDERABLES Performing Organization Address City/[facility]/ZIP [place] [address] (ABNORMAL) Basic Metabolic Panel (non-fasting) (11/03/2021 4:15 AM EDT) athologist Signature Glucose Lvl 123 65 - 199 [facility] mg/dL [facility]ORY Comment: Diabetes: >=200 mg/dL plus symp toms BUN 36 (H) 10 - 20 mg/dL [facility] Creatinine 1.32 0.80 - 1.50 mg/dL [facility] Sodium 140 135 - 145 mmol/L [facility] Potassium 3.4 (L) 3.5 - 5.0 mmol/L [facility] Comment: Please note: ??Patients with WBC >100,00 0 may have falsely elevated Potassium levels. ??For accurate Potassium quantif ication in these patients send serum separator tube (gold top) for subsequent determinations. ??Contact the Clinical Chemistry Laboratory if there are any qu estions. Chloride 108 (H) 98 - 107 mmol/L [facility] CO2 19 (L) 22 - 31 mmol/L [facility] Anion Gap 13 5 - 15 mmol/L [facility] Calcium 9.0 8.5 - 10.5 mg/dL [facility] Estimated GFR 58 (L) >=60 mL/min/1.73 m?? [facility] Comment: This patient? s estimated glomerular filtration rate (eGFR) is between 58 mL/min/1.73 m2 (patients with less muscl e mass per kg body weight) and 67 mL/min/1.73 m2 (patients with more muscl e [...] (Source) Location / / Volume Laterality Blood 11/03/2021 4:15 AM 4:55 EDT AM EDT Resulting Agency Comment Spec In Lab Parviz Modi MD CHEMISTRY ORDERABLES Performing Organization Address City/State/Z[place] [address] Blood culture (11/03/2021 4:08 AM EDT) [facility] Method Time Signature Blood Culture No growth JIA MARX at 5 days. [facility]OR[facility]ORY Specimen Anatomical Collection Method Collection Time Receive d Time (Source) Location / / Volume Laterality Blood 11/03/2021 4:08 AM 2 6:18 EDT AM EDT Resulting Agency Comment Spec In Lab Urban Dos Santos MD MICROBIOLOGY - BLOOD ORDERAB LES Performing Organization Address City/[facility]/ZIP [place] [address] (ABNORMAL) Blood culture (11/03/2021 3:56 AM EDT) Component Value Ref Test Analysis Performed At [facility] Mobvoi Range Method Time Signature Blood Corynebacterium species isol ated : Interpretation of the importance of skin JIA Culture mitzy such as Coagulase Nega tive Staph, Viridans Strep, Corynebacteria and ARASELI other Gram Positive organism s from a single Blood Culture set requires clinical [facility]. [facility] (A) LABORATORY Gram Stain Note: This is a corrected report JIA Aerobic Growth detected in aerobic bottle. ARASELI Gram Positive Rods seen [facility] Previously reported as: [facility] Gram Positive Cocci seen LABOR ATORY Results called to and read back by Denise Madera RN at ?? 10:57:10 (A) Organism Corynebacterium JIA species (A) [facility]OR[facility] Specimen Anatomical Collection Method Collection Time Receive d Time (Source) Location / / Volume Laterality Blood 11/03/2021 3:56 AM 2 6:19 EDT AM EDT Resulting Agency Comment Spec In Lab Urban Dos Santos MD MICROBIOLOGY - BLOOD ORDERAB LES Performing Organization Address City/[facility]/ZIP Code [place] [address] (ABNORMAL) Blood culture (11/02/2021 10:18 AM EDT) Component Value Ref Test Analysis Performed At [facility] Mobvoi Range Method Time Signature Blood Enterococcus faecium isolated * VRE, Vancomycin Resistance * JIA Culture Susceptibilities previously reported [facility] Gram Stain Growth detected in anaerobic bottle. JIA Anaerobic Gram Positive Cocci in pairs seen [facility] Gram Stain Growth detected in aerobic bottle. JIA Aerobic Gram Positive Cocci in pairs seen [facility] Organism Enterococcus JIA faecium (A) [facility] Organism Gram Positive Cocci JIA in pairs (A) [facility] Specimen Anatomical Collection Method Collection Time Receive d Time (Source) Location / / Volume Laterality Blood 11/02/2021 10:18 11/02/2021 AM EDT 10:45 AM EDT Comment: L Hand Resulting Agency Comment Spec In Lab Urban Dos Santos MD MICROBIOLOGY - BLOOD ORDERAB LES Performing Organization Address City/[facility] Code Phon e Number [place] [place] [address] (ABNORMAL) Blood culture (11/02/2021 10:18 AM EDT) [facility] Method Time Signature Blood Culture Enterococcus faecium isolated * VRE, Vancomycin Resista nce * JIA Isolate saved. If future testing is required, contact the Microbiology [place] Industrial Organizational Psychologist. [facility] Gram Stain Growth detected in aerobic bottle. JIA Aerobic Gram Positive Cocci in pairs seen [facility] Gram Stain Growth detected in anaerobic bottle. JIA Anaerobic Gram Positive Cocci in pairs seen [place] Results called to and read back by Radha Marmolejo ??11/03/21 02:42:51 [facility] LABORATORY Organism Enterococcus JIA faecium (A) [facility] Organism Gram Positive JIA Cocci in pairs [facility] Specimen Anatomical Collection Method Collection Time Receive d Time (Source) Location / / Volume Laterality Blood 11/02/2021 10:18 11/02/2021 AM EDT 10:46 AM EDT Comment: R Hand Resulting Agency Comment Spec In Lab Organism Antibiotic Method Susceptibility Enterococcus faecium Ampicillin MICROSCAN METHOD Resistant Enterococcus faecium Erythromycin MICROSCAN METHOD Resistant Enterococcus faecium Gentamicin 500 MICROSCAN METHOD Sensitive Enterococcus faecium Linezolid MICROSCAN METHOD Sensitive Enterococcus faecium Penicillin MICROSCAN METHOD Resistant Enterococcus faecium Vancomycin MICROSCAN METHOD Resistant Urban Dos Santos MD MICROBIOLOGY - BLOOD ORDERAB LES Performing Organization Address City/[facility] [place] [address] XR Chest One View (11/02/2021 9:36 AM EDT) Anatomical Region Laterality Modality Chest N/A Digital Radiography Specimen (Source) Anatomical Location Collection Method / Collectio n Time Received Time / Laterality Volume Impressions 11/02/2021 10:19 AM EDT No active disease in the chest. Thank you for letting us participate in the care of this patient. ??If you are a health care provider and have any questi ons regarding this report, please contact the number below. ??For patients who have questions please contact the health resident care supervisor that requested your imaging first. ? Electronically signed by: Allyssa Carl, [facility] ([phone]), at 11/02/2021 10:19 AM Narrative 11/02/2021 10:19 AM EDT EXAMINATION: XR CHEST ONE VIEW CLINICAL HISTORY: Neutropenic fever TECHNIQUE: 1 view of the chest AP portable COMPARISON: October 19, 2021 FINDINGS: Right central venous access port remains in position with the tip overlying the upper right atrium. Left subclavian doub le-lumen catheter is present with the tip overlying the superior vena cava. The visualized lungs are clear and adequ ately expanded. Heart and pulmonary vasculature are normal. No significant o sseous abnormality is seen. Procedure Note Renny Yu MD - 11/02/2021Formattin g of this note might be different from the original. EXAMINATION: XR CHEST ONE VIEW CLINICAL HISTORY: Neutropenic fever TECHNIQUE: 1 view of the chest AP portable COMPARISON: October 19, 2021 FINDINGS: Right central venous access port remains in position with the tip overlying the upper right atrium. Left subclavian doub le-lumen catheter is present with the tip overlying the superior vena cava. The visualized lungs are clear and adequ ately expanded. Heart and pulmonary vasculature are normal. No significant o sseous abnormality is seen. IMPRESSION No active disease in the chest. Thank you for letting us participate in the care of this patient. If you are a health care provider and have any questi ons regarding this report, please contact the number below. For patients w ho have questions please contact the health resident care supervisor that requested your imaging first. Urban Dos Santos MD IMG DX ORDERABLES Scan, Peripheral Blood (11/02/2021 3:50 AM EDT) Patholo gist Method Time Signature Plat Estimate Decreased [facility] RBC Morphology Abnormal [facility] Hypochromia Slight [facility] Ovalocytes 1-5 /HPF [facility] Tear Drop Cells 1-5 /HPF [facility] Specimen Anatomical Collection Method Collection Time Receive d Time (Source) Location / / Volume Laterality Blood 11/02/2021 3:50 AM 4:12 EDT AM EDT Resulting Agency Comment Spec In Lab Parviz Modi MD HEMATOLOGY ORDERABLES Performing Organization Address City/State/[place] [address] (ABNORMAL) Hemogram (11/02/2021 3:50 AM EDT) P athologist Signature WBC 0.0 4.0 - 9.5 [facility] (Critical) x10(3)/[facility] LABORATORY Comment: Diff not performed-WBC Less miguel a n or equal to 0.25. RBC 2.47 (L) 4.58 - 5.54 x10(6)/[facility] LABORATORY Hemoglobin 7.9 (L) 13.7 - 16.5 g/dL [facility] Hematocrit 21.3 (L) 40.5 - 48.5 % [facility] MCV 86.2 82.9 - 93.1 fL [facility] MCH 32.0 27.5 - 32.1 pg [facility] MCHC 37.1 (H) 32.0 - 35.7 g/dL [facility] Platelets 31 (L) 145 - 357 x10(3)/[facility] LABORATORY RDWSD 51.8 (H) 36.0 - 45.0 fL [facility] RDWCV 16.7 (H) 11.4 - 13.8 % [facility] MPV 9.9 7.6 - 12.[address] [facility] nRBC Abs Auto 0.000 0.000 - 0.000 x10(3)/[facility] LABORATORY Specimen Anatomical Collection Method Collection Time Receive d Time (Source) Location / / Volume Laterality Blood 11/02/2021 3:50 AM 2 4:12 EDT AM EDT Resulting Agency Comment Spec In Lab Parviz Modi MD HEMATOLOGY ORDERABLES Performing Organization Address [facility]/ZIP [facility] Phon e Number [address] Phosphorus (11/02/2021 3:50 AM EDT) P athologist Signature Phosphorus 2.8 2.5 - 4.5 [facility] mg/[facility] LABORATORY Specimen Anatomical Collection Method Collection Time Receive d Time (Source) Location / / Volume Laterality Blood 11/02/2021 3:50 AM 2 4:12 EDT AM EDT Resulting Agency Comment Spec In Lab Parviz Modi MD CHEMISTRY ORDERABLES Performing Organization Address City/[facility]/ZIP Code Phon e Number [address] Magnesium (11/02/2021 3:50 AM EDT) P athologist Signature Magnesium 0.76 0.69 - 1.07 [facility] mmol/L [facility] LABORATORY Specimen Anatomical Collection Method Collection Time Receive d Time (Source) Location / / Volume Laterality Blood 11/02/2021 3:50 AM 2 4:12 EDT AM EDT Resulting Agency Comment Spec In Lab Parviz Modi MD CHEMISTRY ORDERABLES Performing Organization Address City/State/[place] [address] (ABNORMAL) Basic Metabolic Panel (non-fasting) (11/02/2021 3:50 AM EDT) P athologist Signature Glucose Lvl 132 65 - 199 [facility] mg/dL [facility] LABORATORY Comment: Diabetes: >=200 mg/dL plus symp toms BUN 36 (H) 10 - 20 mg/dL [facility] Creatinine 1.29 0.80 - 1.50 mg/dL [facility] Sodium 141 135 - 145 mmol/L [facility] Potassium 4.1 3.5 - 5.0 mmol/L [facility] Comment: Please note: ??Patients with WBC >100,00 0 may have falsely elevated Potassium levels. ??For accurate Potassium quantif ication in these patients send serum separator tube (gold top) for subsequent determinations. ??Contact the Clinical Chemistry Laboratory if there are any qu estions. Chloride 111 (H) 98 - 107 mmol/L [facility] CO2 15 (L) 22 - 31 mmol/L [facility] Anion Gap 15 5 - 15 mmol/L [facility] Calcium 9.2 8.5 - 10.5 mg/dL [facility] Estimated GFR 59 (L) >=60 mL/min/1.73 m?? [facility] Comment: This patient? s estimated glomerular filtration rate (eGFR) is between 59 mL/min/1.73 m2 (patients with less muscl e mass per kg body weight) and 69 mL/min/1.73 m2 (patients with more muscl e [...] (Source) Location / / Volume Laterality Blood 11/02/2021 3:50 AM 2 4:12 EDT AM EDT Resulting Agency Comment Spec In Lab Parviz Modi MD CHEMISTRY ORDERABLES Performing Organization Address City/State/ZIP [place] [address] Hepatic Function Panel (11/02/2021 3:50 AM EDT) P athologist Signature Total Protein 6.4 6.1 - 8.0 [facility] g/dL [facility]ORY Albumin 3.4 3.2 - 5.2 [facility] g/dL [facility] LABORATORY AST 16 0 - 39 [facility] unit/L [facility] ALT 41 0 - 55 [facility] unit/L [facility] Alk Phos 121 40 - 130 [facility] unit/L [facility] Total 0.4 0.2 - 1.3 [facility] Bilirubin mg/dL [facility] Bili, Direct 0.2 0.0 - 0.3 [facility] mg/dL [facility] LABORATORY Specimen Anatomical Collection Method Collection Time Receive d Time (Source) Location / / Volume Laterality Blood 11/02/2021 3:50 AM 2 4:12 EDT AM EDT Resulting Agency Comment Spec In Lab Parviz Modi MD CHEMISTRY ORDERABLES Performing Organization Address City/[facility]/ZIP [place] [address] Prepare Platelets, Apheresis (11/01/2021 8:35 PM EDT) P athologist Signature Dispensed? Yes [facility] Specimen Anatomical Collection Method Collection Time Receive d Time (Source) Location / / Volume Laterality Blood 11/01/2021 8:35 PM 2 8:33 EDT PM EDT Urban Dos Santos MD BLOOD BANK ORDERABLES Performing Organization Address City/State/ZIP [place] [address] Prepare RBC (11/01/2021 8:35 PM EDT) P athologist Signature Dispensed? Yes [facility] Specimen Anatomical Collection Method Collection Time Receive d Time (Source) Location / / Volume Laterality Blood 11/01/2021 8:35 PM 2 8:33 EDT PM EDT Urban Dos Santos MD BLOOD BANK ORDERABLES Performing Organization Address City/[facility]/ZIP Code Phon e Number [address] APTT (11/01/2021 6:55 PM EDT) P athologist Signature PTT 33 25 - 37 sec [facility] Comment: The PTT is NOT appropriate for heparin m onitoring. Use the Anti-Xa level for heparin monitoring (HEP UFH) or LMWH mon itoring (HEP LMW). A PTT less than 37 seconds generally indicates adequate hem ostasis. Specimen Anatomical Collection Method Collection Time Receive d Time (Source) Location / / Volume Laterality Blood 11/01/2021 6:55 PM 2 7:06 EDT PM EDT Resulting Agency Comment Spec In Lab Urban Dos Santos MD HEMATOLOGY ORDERABLES Performing Organization Address City/[facility]/ZIP Code Phon e Number [address] (ABNORMAL) Prothrombin Time (11/01/2021 6:55 PM EDT) P athologist Signature PT 13.3 (H) 9.4 - 12.5 [facility] LABORATORY INR 1.2 [facility] Comment: An INR <2.0 indicates [...] (Source) Location / / Volume Laterality Blood 11/01/2021 6:55 PM 2 7:06 EDT PM EDT Resulting Agency Comment Spec In Lab Urban Dos Santos MD HEMATOLOGY ORDERABLES Performing Organization Address City/State/[place] [address] [facility] LAB[address] Drive (ABNORMAL) Hemogram (11/01/2021 6:55 PM EDT) [facility] Method Time Signature WBC 0.0 4.0 - 9.5 [facility] (Critical) x10(3)/[facility] LABORATORY RBC 2.05 (L) 4.58 - [facility] 5.54 [facility] x10(6)/[facility] LABORATORY Hemoglobin 6.5 (L) 13.7 - [facility] [place] 16.5 g/dL [facility]OR[facility]ORY Hematocrit 18.0 (L) 40.5 - [facility] 48.5 % [facility] LABORATORY MCV 87.8 82.9 - [facility] 93.1 [facility] LABORATORY MCH 31.7 27.5 - [facility] 32.1 pg [facility] LABORATORY MCHC 36.1 (H) 32.0 - [facility] 35.7 g/dL [facility]ATORY Platelets 15 145 - 357 [facility] (Critical) x10(3)/[facility] LABORATORY RDWSD 51.5 (H) 36.0 - [facility]I 45.0 [facility] LABORATORY RDWCV 16.1 (H) 11.4 - [facility] [place] 13.8 % [facility] LABORATORY MPV 9.5 7.6 - 12.9 [facility] LABORATORY nRBC Abs Auto 0.000 0.000 - JIA [facility]ELI 0.000 [facility] x10(3)/[facility] LABORATORY Specimen Anatomical Collection Method Collection Time Receive d Time (Source) Location / / Volume Laterality Blood 11/01/2021 6:55 PM 2 7:06 EDT PM EDT Resulting Agency Comment Spec In Lab Urban Dos Santos MD HEMATOLOGY ORDERABLES Performing Organization Address City/State/Z[place] [address] [facility] LAB[address] Drive Urine Hold (11/01/2021 5:15 PM EDT) P athologist Signature Urine Hold Sample in [facility] LABORATORY Specimen Anatomical Collection Method Collection Time Receive d Time (Source) Location / / Volume Laterality Urine Urine / Unknown 11/01/2021 5:15 PM 2021 5:25 EDT PM EDT Urban Dos Santos MD URINE ORDERABLES Performing Organization Address City/[facility]/ZIP [place] [address] (ABNORMAL) Urinalysis Microscopic Exam (11/01/2021 5:11 PM EDT) athologist Signature RBC UA 5 (H) 0 - 3 /HPF [facility] WBC UA 1 0 - 3 /HPF [facility] Bacteria UA Few (A) None /HPF [facility] Squam Epith UA 1 <=4 /HPF [facility] Hyaline Cast 1 0 - 2 /LPF [facility] LABORATORY Gran Cast UA 1 (H) <=0 /LPF [facility]ORY Specimen Anatomical Collection Method Collection Time Receive d Time (Source) Location / / Volume Laterality Clean Catch 11/01/2021 5:11 PM 5:25 Urine EDT PM EDT Resulting Agency Comment Spec In Lab Urban Dos Santos MD URINE ORDERABLES Performing Organization Address City/[facility] [place] [address] (ABNORMAL) Urinalysis with reflex Culture (11/01/2021 5:11 PM EDT) Patholo gist Method Time Signature Glucose UA Negative Negative [facility] mg/[facility] LABORATORY Protein UA 100 (A) Negative [facility] mg/dL [facility] LABORATORY Bilirubin UA Negative Negative [facility] mg/dL [facility] Comment: Clinical correlation required for positi ve Urine Bilirubin results as false positive may occur with some drugs and d rug related products. If a false positive is suspected a serum total bili estrella should be considered if clinically indicated. Urobilinogen UA Normal Normal mg/dL [facility] pH UA 5.5 5.0 - 8.0 [facility] Blood UA Moderate (A) Negative mg/dL [facility] Ketones UA Negative Negative mg/dL [facility] Nitrite UA Negative Negative [facility] Leukocytes UA Negative Negative [facility] LABORATORY Appearance UA Clear Clear [facility] Spec Ulm UA 1.018 1.005 - 1.030 [facility]ORY Color UA Yellow Yellow [facility] Culture Reflexed No [facility]ORY Specimen Anatomical Collection Method Collection Time Receive d Time (Source) Location / / Volume Laterality Clean Catch 11/01/2021 5:11 PM 2 5:25 Urine EDT PM EDT Resulting Agency Comment Spec In Lab Urban Dos Santos MD URINE ORDERABLES Performing Organization Address City/State/Z[place] [address] (ABNORMAL) Platelet count (11/01/2021 12:00 PM EDT) [facility] gist Method Time Signature Platelets 19 145 - 357 [facility] (Critical) x10(3)/[facility] LABORATORY Plat Immature 1.1 0.0 - 7.4 [facility] % % [facility]ORY Comment: Limitation of the Immature Platelet Frac tion (IPF)-May be less reliable when the platelet count is less than 09p887/u L due to statistical imprecision. The IPF value provides an assessment of the Bone Marrow production status. ??It is useful in differentiating Thrombocyto penia caused by platelet destruction/consumption versus decreased production. It also helps to determine the imminent release of platelets and ca n be therefore a helpful parameter in Chemotherapy and Bone marrow transplant patients. ELEVATED IPF value: ?? When the bone marrow is in a state of over production such as when increased destruction and consumption are the unde rlying issue. ?? When the marrow is recovering post ch emotherapy or bone marrow transplant. LOW to NORMAL IPF value: ?? When the bone marrow in not respondin g and is in a decreased state of production. References: [employer] The Clinical Value of the Immature Platelet Fraction (IPF) in Cell Recovery Document Number [id number] 01/2011 [employer] The Role of the Imm ature Platelet Fraction (IPF) in the Differential Diagnosis of Thrombocytopen ia, Document [id number] V05 P012/28 Specimen Anatomical Collection Method Collection Time Receive d Time (Source) Location / / Volume Laterality Blood 11/01/2021 12:00 11/01/2021 PM EDT 12:18 PM EDT Resulting Agency Comment Spec In Lab Parviz Modi MD HEMATOLOGY ORDERABLES Performing Organization Address City/State/ZIP Code Phon e Number [address] Transfuse 1 unit platelets, apheresis (11/01/2021 11:28 AM EDT) Urban Dos Santos MD NURSING TREATMENT ORDERABLES - BLOOD ADMIN Transfuse 1 unit platelets, apheresis (11/01/2021 11:28 AM EDT) Urban Dos Santos MD NURSING TREATMENT ORDERABLES - BLOOD ADMIN Transfuse RBC (11/01/2021 8:19 AM EDT) Urban Dos Santos MD NURSING TREATMENT ORDERABLES - BLOOD ADMIN Transfuse RBC (11/01/2021 8:19 AM EDT) Urban Dos Santos MD NURSING TREATMENT ORDERABLES - BLOOD ADMIN Prepare Platelets, Apheresis (11/01/2021 5:15 AM EDT) P athologist Signature Dispensed? Yes [facility]ORY Specimen Anatomical Collection Method Collection Time Receive d Time (Source) Location / / Volume Laterality Blood 11/01/2021 5:15 AM 5:14 EDT AM EDT Urban Dos Santos MD BLOOD BANK ORDERABLES Performing Organization Address City/[facility]/ZIP Code Phon e Number [address] Prepare RBC (11/01/2021 5:15 AM EDT) P athologist Signature Dispensed? Yes [facility] Specimen Anatomical Collection Method Collection Time Receive d Time (Source) Location / / Volume Laterality Blood 11/01/2021 5:15 AM 2 5:14 EDT AM EDT Urban Dos Santos MD BLOOD BANK ORDERABLES Performing Organization Address City/State/[place] [address] (ABNORMAL) Hemogram (11/01/2021 4:50 AM EDT) P athologist Signature WBC 0.0 4.0 - 9.5 [facility] (Critical) x10(3)/[facility] LABORATORY Comment: Diff not performed-WBC Less miguel a n or equal to 0.25. RBC 1.79 (L) 4.58 - 5.54 x10(6)/[facility] LABORATORY Hemoglobin 6.0 (L) 13.7 - 16.5 g/dL [facility] LABOR[facility]ORY Hematocrit 16.5 (L) 40.5 - 48.5 % [facility]ORATORY MCV 92.2 82.9 - 93.1 fL [facility] MCH 33.5 (H) 27.5 - 32.1 pg [facility] MCHC 36.4 (H) 32.0 - 35.7 g/dL [facility] LABORATORY Platelets 7 (Critical) 145 - 357 x10(3)/[facility] LABORATORY RDWSD 53.2 (H) 36.0 - 45.0 [facility] LABORATORY RDWCV 15.9 (H) 11.4 - 13.8 % [facility] LABORATORY MPV Not Measured 7.6 - 12.9 [facility] LABORATORY nRBC Abs Auto 0.000 0.000 - 0.000 x10(3)/[facility] LABORATORY Specimen Anatomical Collection Method Collection Time Receive d Time (Source) Location / / Volume Laterality Blood 11/01/2021 4:50 AM 2 5:01 EDT AM EDT Resulting Agency Comment Spec In Lab Parviz Modi MD HEMATOLOGY ORDERABLES Performing Organization Address City/State/Z[place] [address] [facility] LAB[address] Drive EBV PCR Quantitative (11/01/2021 4:50 AM EDT) [facility] Method Time Signature EBV DNA BY Undetected Undetected JIA PCR IU/mL [facility] Comment: Result in log IU/mL is Undetected. ADDITIONAL INFORMATIO N The quantification range of this assay i s 35 to 100,000,000 IU/mL (1.54 log to 8.00 log IU/mL). Test ing was performed using the jasmeet EBV test ([employer] with the jasmeet 6800 System. Test Performed by: [facility] [address] [address] Concrete Conveyor Operator: Randal Aparicio M.D. Ph. D.; CLIA# [id number] Specimen Anatomical Collection Method Collection Time Receive d Time (Source) Location / / Volume Laterality Blood 11/01/2021 4:50 AM 9:42 EDT AM EDT Resulting Agency Comment Spec In Lab Parviz Modi MD IMMUNOLOGY ORDERABLES Performing Organization Address City/State/Z[place] [address] [facility] [address] Drive CMV PCR, Quantitative (11/01/2021 4:50 AM EDT) Component Value Ref Test Analysis Performed At [facility] Method Time Signature CMV Quant <50 IU/mL JIA (Numeric) [facility] CMV Quant Result: <50 IU/mL (Target Not Detected) [facility] (Interp) [place] Indication for Study: CMV Infection [facility] Analysis: The [employer] RealTime CMV test is an in vitro poly merase chain LABORATORY reaction(PCR) assay for the quantitation of cytomegalovirus (CMV) DNA in human EDTA plasma. Sample: plasma (0.9 mL minimum volume) Method: [employer] RealTime CMV Assay Linear Range: 50 IU/mL ? 156,000,000 IU/mL Note: The [employer] RealTime CM V Assay has been approved by the U.S. Food and Drug Administration. Specimen Anatomical Collection Method Collection Time Receive d Time (Source) Location / / Volume Laterality Blood 11/01/2021 4:50 AM 2 4:19 EDT PM EDT Resulting Agency Comment Spec In Lab Parviz Modi MD IMMUNOLOGY ORDERABLES Performing Organization Address City/State/ZIP Code Phon e Number [address] Phosphorus (11/01/2021 4:50 AM EDT) athologist Signature Phosphorus 3.4 2.5 - 4.5 [facility] mg/dL [facility] LABORATORY Specimen Anatomical Collection Method Collection Time Receive d Time (Source) Location / / Volume Laterality Blood 11/01/2021 4:50 AM 2 5:01 EDT AM EDT Resulting Agency Comment Spec In Lab Parviz Modi MD CHEMISTRY ORDERABLES Performing Organization Address City/[facility]/ZIP Code Phon e Number [address] (ABNORMAL) Magnesium (11/01/2021 4:50 AM EDT) athologist Signature Magnesium 0.58 (L) 0.69 - 1.07 [facility] mmol/L [facility] LABORATORY Specimen Anatomical Collection Method Collection Time Receive d Time (Source) Location / / Volume Laterality Blood 11/01/2021 4:50 AM 2 5:01 EDT AM EDT Resulting Agency Comment Spec In Lab Parviz Modi MD CHEMISTRY ORDERABLES Performing Organization Address City/[facility]/ZIP [place] [address] (ABNORMAL) Basic Metabolic Panel (non-fasting) (11/01/2021 4:50 AM EDT) athologist Signature Glucose Lvl 120 65 - 199 [facility] mg/dL [facility] Comment: Diabetes: >=200 mg/dL plus symp toms BUN 40 (H) 10 - 20 mg/dL [facility] Creatinine 1.26 0.80 - 1.50 mg/dL [facility] Sodium 140 135 - 145 mmol/L [facility] Potassium 4.5 3.5 - 5.0 mmol/L [facility] Comment: Please note: ??Patients with WBC >100,00 0 may have falsely elevated Potassium levels. ??For accurate Potassium quantif ication in these patients send serum separator tube (gold top) for subsequent determinations. ??Contact the Clinical Chemistry Laboratory if there are any qu estions. Chloride 116 (H) 98 - 107 mmol/L [facility] CO2 15 (L) 22 - 31 mmol/L [facility] Anion Gap 9 5 - 15 mmol/L [facility] Calcium 8.9 8.5 - 10.5 mg/dL [facility] Estimated GFR 61 >=60 mL/min/1.73 m?? [facility] Comment: This patient? s estimated glomerular filtration rate (eGFR) is between 61 mL/min/1.73 m2 (patients with less muscl e mass per kg body weight) and 71 mL/min/1.73 m2 (patients with more muscl e [...] (Source) Location / / Volume Laterality Blood 11/01/2021 4:50 AM 2 5:01 EDT AM EDT Resulting Agency Comment Spec In Lab Parviz Modi MD CHEMISTRY ORDERABLES Performing Organization Address City/State/[place] [address] (ABNORMAL) Platelet count (10/31/2021 8:54 AM EDT) [facility] gist Method Time Signature Platelets 19 145 - 357 [facility] (Critical) x10(3)/[facility] LABORATORY Plat Immature 0.4 0.0 - 7.4 [facility] % % [facility] Comment: Limitation of the Immature Platelet Frac tion (IPF)-May be less reliable when the platelet count is less than 45o658/u L due to statistical imprecision. The IPF value provides an assessment of the Bone Marrow production status. ??It is useful in differentiating Thrombocyto penia caused by platelet destruction/consumption versus decreased production. It also helps to determine the imminent release of platelets and ca n be therefore a helpful parameter in Chemotherapy and Bone marrow transplant patients. ELEVATED IPF value: ?? When the bone marrow is in a state of over production such as when increased destruction and consumption are the unde rlying issue. ?? When the marrow is recovering post ch emotherapy or bone marrow transplant. LOW to NORMAL IPF value: ?? When the bone marrow in not respondin g and is in a decreased state of production. References: [employer] The Clinical Value of the Immature Platelet Fraction (IPF) in Cell Recovery Document Number [id number] 01/2011 [employer] The Role of the Imm ature Platelet Fraction (IPF) in the Differential Diagnosis of Thrombocytopen ia, Document [id number] V05 P012/28 Specimen Anatomical Collection Method Collection Time Receive d Time (Source) Location / / Volume Laterality Blood 10/31/2021 8:54 AM 2 9:11 EDT AM EDT Resulting Agency Comment Spec In Lab Parviz Modi MD HEMATOLOGY ORDERABLES Performing Organization Address City/State/[place] [address] Tacrolimus level (10/31/2021 8:54 AM EDT) P athologist Signature Tacrolimus Lvl 7.7 ng/mL [facility] Comment: Trough therapeutic range is [...] (Source) Location / / Volume Laterality Blood 10/31/2021 8:54 AM 2 9:11 EDT AM EDT Resulting Agency Comment Spec In Lab Parviz Modi MD CHEMISTRY ORDERABLES Performing Organization Address City/State/ZIP [place] [address] Transfuse 1 unit platelets, apheresis (10/31/2021 8:30 AM EDT) Urban Dos Santos MD NURSING TREATMENT ORDERABLES - BLOOD ADMIN Transfuse 1 unit platelets, apheresis (10/31/2021 8:30 AM EDT) Urban Dos Santos MD NURSING TREATMENT ORDERABLES - BLOOD ADMIN Prepare Platelets, Apheresis (10/31/2021 5:20 AM EDT) P athologist Signature Dispensed? Yes [facility] Specimen Anatomical Collection Method Collection Time Receive d Time (Source) Location / / Volume Laterality Blood 10/31/2021 5:20 AM 2 5:20 EDT AM EDT Urban Dos Santos MD BLOOD BANK ORDERABLES Performing Organization Address City/[facility]/ZIP [place] [address] (ABNORMAL) Hemogram (10/31/2021 4:15 AM EDT) P athologist Signature WBC 0.0 4.0 - 9.5 [facility] (Critical) x10(3)/[facility] LABORATORY Comment: Diff not performed-WBC Less miguel a n or equal to 0.25. RBC 2.12 (L) 4.58 - 5.54 x10(6)/[facility] LABORATORY Hemoglobin 6.9 (L) 13.7 - 16.5 g/dL [facility] Hematocrit 19.6 (L) 40.5 - 48.5 % [facility] MCV 92.5 82.9 - 93.1 fL [facility] MCH 32.5 (H) 27.5 - 32.1 pg [facility] MCHC 35.2 32.0 - 35.7 g/dL [facility] Platelets 7 (Critical) 145 - 357 x10(3)/[facility] LABORATORY RDWSD 56.6 (H) 36.0 - 45.0 fL [facility] RDWCV 16.7 (H) 11.4 - 13.8 % [facility] MPV Not Measured 7.6 - 12.9 fL [facility] nRBC Abs Auto 0.000 0.000 - 0.000 x10(3)/[facility] LABORATORY Specimen Anatomical Collection Method Collection Time Receive d Time (Source) Location / / Volume Laterality Blood 10/31/2021 4:15 AM 2 4:30 EDT AM EDT Resulting Agency Comment Spec In Lab Parviz Modi MD HEMATOLOGY ORDERABLES Performing Organization Address City/[facility] [place] [address] Hepatic Function Panel (10/31/2021 4:15 AM EDT) athologist Signature Total Protein 6.2 6.1 - 8.0 JIA ARASELI g/dL [facility] Albumin 3.3 3.2 - 5.2 [facility] ARASELI g/dL [facility] AST 18 0 - 39 JIA ARASELI unit/L [facility] ALT 42 0 - 55 JIA ARASELI unit/L [facility] Alk Phos 118 40 - 130 [facility] ARASELI unit/L [facility] Total 0.3 0.2 - 1.3 JIA ARASELI Bilirubin mg/dL [facility] Bili, Direct 0.1 0.0 - 0.3 [facility] ARASELI mg/dL [facility] Specimen Anatomical Collection Method Collection Time Receive d Time (Source) Location / / Volume Laterality Blood 10/31/2021 4:15 AM 2 4:30 EDT AM EDT Resulting Agency Comment Spec In Lab Parviz Modi MD CHEMISTRY ORDERABLES Performing Organization Address City/[facility]/ZIP Code Phon e Number [address] Phosphorus (10/31/2021 4:15 AM EDT) athologist Signature Phosphorus 3.3 2.5 - 4.5 [facility] Specimen Anatomical Collection Method Collection Time Receive d Time (Source) Location / / Volume Laterality Blood 10/31/2021 4:15 AM 2 4:30 EDT AM EDT Resulting Agency Comment Spec In Lab Parviz Modi MD CHEMISTRY ORDERABLES Performing Organization Address City/State/ZIP Code Phon e Number [address] Magnesium (10/31/2021 4:15 AM EDT) athologist Signature Magnesium 0.77 0.69 - 1.07 [facility] mmol/L [facility] LABORATORY Specimen Anatomical Collection Method Collection Time Receive d Time (Source) Location / / Volume Laterality Blood 10/31/2021 4:15 AM 2 4:30 EDT AM EDT Resulting Agency Comment Spec In Lab Parviz Modi MD CHEMISTRY ORDERABLES Performing Organization Address City/State/ZIP Code Phon e Number [address] (ABNORMAL) Basic Metabolic Panel (non-fasting) (10/31/2021 4:15 AM EDT) athologist Signature Glucose Lvl 103 65 - 199 [facility] mg/dL [facility] Comment: Diabetes: >=200 mg/dL plus symp toms BUN 47 (H) 10 - 20 mg/dL [facility] Creatinine 1.49 0.80 - 1.50 mg/dL [facility] Sodium 140 135 - 145 mmol/L [facility] Potassium 4.8 3.5 - 5.0 mmol/L [facility] Comment: Please note: ??Patients with WBC >100,00 0 may have falsely elevated Potassium levels. ??For accurate Potassium quantif ication in these patients send serum separator tube (gold top) for subsequent determinations. ??Contact the Clinical Chemistry Laboratory if there are any qu estions. Chloride 117 (H) 98 - 107 mmol/L [facility] CO2 14 (L) 22 - 31 mmol/L [facility] Anion Gap 9 5 - 15 mmol/L [facility] Calcium 9.0 8.5 - 10.5 mg/dL [facility] Estimated GFR 50 (L) >=60 mL/min/1.73 m?? [facility] Comment: This patient? s estimated glomerular filtration rate (eGFR) is between 50 mL/min/1.73 m2 (patients with less muscl e mass per kg body weight) and 58 mL/min/1.73 m2 (patients with more muscl e [...] (Source) Location / / Volume Laterality Blood 10/31/2021 4:15 AM 2 4:30 EDT AM EDT Resulting Agency Comment Spec In Lab Parviz Modi MD CHEMISTRY ORDERABLES Performing Organization Address City/State/[place] [address] Transfuse RBC (10/30/2021 11:42 AM EDT) Urban Dos Santos MD NURSING TREATMENT ORDERABLES - BLOOD ADMIN Transfuse RBC (10/30/2021 11:42 AM EDT) Urban Dos Santos MD NURSING TREATMENT ORDERABLES - BLOOD ADMIN Urea nitrogen, urine, random (10/30/2021 11:41 AM EDT) P athologist Signature U Urea 761 mg/dL [facility] LABORATORY Specimen Anatomical Collection Method Collection Time Receive d Time (Source) Location / / Volume Laterality Urine 10/30/2021 11:41 10/30/2021 AM EDT 11:59 AM EDT Resulting Agency Comment Spec In Lab Urban Dos Santos MD URINE ORDERABLES Performing Organization Address City/[facility]/ZIP Code Phon e Number [address] Creatinine, urine, random (10/30/2021 11:41 AM EDT) athologist Signature U Creatinine 67 mg/dL [facility] Specimen Anatomical Collection Method Collection Time Receive d Time (Source) Location / / Volume Laterality Urine 10/30/2021 11:41 10/30/2021 AM EDT 11:59 AM EDT Resulting Agency Comment Spec In Lab Urban Dos Santos MD URINE ORDERABLES Performing Organization Address [facility] Phon e Number [address] Scan, Peripheral Blood (10/30/2021 9:15 AM EDT) [facility] Time Signature Plat Estimate Decreased [facility] RBC Morphology Abnormal [facility] Macrocytes 1-5 /HPF [facility] Tear Drop Cells 1-5 /HPF [facility] Specimen Anatomical Collection Method Collection Time Receive d Time (Source) Location / / Volume Laterality Blood 10/30/2021 9:15 AM 9:35 EDT AM EDT Resulting Agency Comment Spec In Lab Parviz Modi MD HEMATOLOGY ORDERABLES Performing Organization Address City/[facility]/ZIP [place] [address] (ABNORMAL) Platelet count (10/30/2021 9:15 AM EDT) P athologist Signature Platelets 23 (L) 145 - 357 [facility] x10(3)/[facility] LABORATORY Plat Immature 0.4 0.0 - 7.4 [facility] % [facility] LABORATORY Comment: Limitation of the Immature Platelet Frac tion (IPF)-May be less reliable when the platelet count is less than 53e746/u L due to statistical imprecision. The IPF value provides an assessment of the Bone Marrow production status. ??It is useful in differentiating Thrombocyto penia caused by platelet destruction/consumption versus decreased production. It also helps to determine the imminent release of platelets and ca n be therefore a helpful parameter in Chemotherapy and Bone marrow transplant patients. ELEVATED IPF value: ?? When the bone marrow is in a state of over production such as when increased destruction and consumption are the unde rlying issue. ?? When the marrow is recovering post ch emotherapy or bone marrow transplant. LOW to NORMAL IPF value: ?? When the bone marrow in not respondin g and is in a decreased state of production. References: [employer] The Clinical Value of the Immature Platelet Fraction (IPF) in Cell Recovery Document Number [id number] 01/2011 [employer] The Role of the Imm ature Platelet Fraction (IPF) in the Differential Diagnosis of Thrombocytopen ia, Document [id number] V012/26/13 P012/28 Specimen Anatomical Collection Method Collection Time Receive d Time (Source) Location / / Volume Laterality Blood 10/30/2021 9:15 AM 9:35 EDT AM EDT Resulting Agency Comment Spec In Lab Parviz Modi MD HEMATOLOGY ORDERABLES Performing Organization Address City/State/[place] [address] Transfuse 1 unit platelets, apheresis (10/30/2021 8:15 AM EDT) Urban Dos Santos MD NURSING TREATMENT ORDERABLES - BLOOD ADMIN Transfuse 1 unit platelets, apheresis (10/30/2021 8:15 AM EDT) Urban Dos Santos MD NURSING TREATMENT ORDERABLES - BLOOD ADMIN Transfuse 1 unit platelets, apheresis (10/30/2021 5:49 AM EDT) Urban Dos Santos MD NURSING TREATMENT ORDERABLES - BLOOD ADMIN Transfuse 1 unit platelets, apheresis (10/30/2021 5:49 AM EDT) Urban Dos Santos MD NURSING TREATMENT ORDERABLES - BLOOD ADMIN Prepare RBC (10/30/2021 4:55 AM EDT) P athologist Signature Dispensed? Yes [facility]OR[facility]ORY Specimen Anatomical Collection Method Collection Time Receive d Time (Source) Location / / Volume Laterality Blood 10/30/2021 4:55 AM 2 4:54 EDT AM EDT Urban Dos Santos MD BLOOD BANK ORDERABLES Performing Organization Address City/[facility]/ZIP Code Phon e Number [address] Prepare Platelets, Apheresis (10/30/2021 4:55 AM EDT) P athologist Signature Dispensed? Yes [facility] LABOR[facility]ORY Specimen Anatomical Collection Method Collection Time Receive d Time (Source) Location / / Volume Laterality Blood 10/30/2021 4:55 AM 2 4:53 EDT AM EDT Urban Dos Santos MD BLOOD BANK ORDERABLES Performing Organization Address City/[facility]/ZIP [place] [address] Type and Screen Validity (10/30/2021 3:45 AM EDT) [facility] Method Time Signature T&S only valid [facility] LABORATORY Comment: This Type and Screen result is only valid at the [facility] Specimen Anatomical Collection Method Collection Time Receive d Time (Source) Location / / Volume Laterality Blood Venous Draw / 10/30/2021 3:45 AM 10/31/19 22 4:09 Unknown EDT AM EDT Resulting Agency Comment Spec In Lab Urban Dos Santos MD BLOOD BANK ORDERABLES Performing Organization Address City/[facility]/ZIP Code Phon e Number [address] ABORH Recheck Status (10/30/2021 3:45 AM EDT) [facility] Method Time Signature ABORH Type Completed [facility] LABORATORY Specimen Anatomical Collection Method Collection Time Receive d Time (Source) Location / / Volume Laterality Blood Venous Draw / 10/30/2021 3:45 AM 10/31/19 22 4:09 Unknown EDT AM EDT Resulting Agency Comment Spec In Lab Urban Dos Santos MD BLOOD BANK ORDERABLES Performing Organization Address City/State/ZIP Code Phon e Number [address] Antibody screen manual (10/30/2021 3:45 AM EDT) Analysis Performed At Patho logist Time Signature AB Screen Negative [facility] LABORATORY Specimen Anatomical Collection Method Collection Time Receive d Time (Source) Location / / Volume Laterality Blood Venous Draw / 10/30/2021 3:45 AM 10/31/19 22 4:09 Unknown EDT AM EDT Resulting Agency Comment Spec In Lab Urban Dos Santos MD BLOOD BANK ORDERABLES Performing Organization Address City/[facility]/ZIP [place] [address] ABORh Type Manual (10/30/2021 3:45 AM EDT) Patholo gist Method Time Signature Expires at 11/02/2021 JIA ARASELI [id number] on: [facility] LABORATORY ABORh Type O Pos [facility] LABORATORY Specimen Anatomical Collection Method Collection Time Receive d Time (Source) Location / / Volume Laterality Blood Venous Draw / 10/30/2021 3:45 AM 10/31/19 22 4:09 Unknown EDT AM EDT Resulting Agency Comment Spec In Lab Urban Dos Santos MD BLOOD BANK ORDERABLES Performing Organization Address City/[facility]/ZIP [place] [address] (ABNORMAL) Hemogram (10/30/2021 3:45 AM EDT) P athologist Signature WBC 0.0 4.0 - 9.5 [facility] (Critical) x10(3)/[facility] LABORATORY Comment: Diff not performed-WBC Less miguel a n or equal to 0.25. RBC 1.97 (L) 4.58 - 5.54 x10(6)/[facility] LABORATORY Hemoglobin 6.6 (L) 13.7 - 16.5 g/dL [facility] LABORATORY Hematocrit 18.9 (L) 40.5 - 48.5 % [facility]ORY MCV 95.9 (H) 82.9 - 93.1 fL [facility] MCH 33.5 (H) 27.5 - 32.1 pg [facility] MCHC 34.9 32.0 - 35.7 g/dL [facility] LABORATORY Platelets 9 (Critical) 145 - 357 x10(3)/[facility] LABORATORY RDWSD 57.8 (H) 36.0 - 45.0 [facility] LABORATORY RDWCV 16.5 (H) 11.4 - 13.8 % [facility] LABORATORY MPV Not Measured 7.6 - 12.9 [facility] LABORATORY nRBC Abs Auto 0.000 0.000 - 0.000 x10(3)/[facility] LABORATORY Specimen Anatomical Collection Method Collection Time Receive d Time (Source) Location / / Volume Laterality Blood 10/30/2021 3:45 AM 2 4:00 EDT AM EDT Resulting Agency Comment Spec In Lab Parviz Modi MD HEMATOLOGY ORDERABLES Performing Organization Address City/[facility]/ZIP [place] [address] Phosphorus (10/30/2021 3:45 AM EDT) P athologist Signature Phosphorus 3.8 2.5 - 4.5 [facility] mg/dL [facility] LABORATORY Specimen Anatomical Collection Method Collection Time Receive d Time (Source) Location / / Volume Laterality Blood 10/30/2021 3:45 AM 2 4:00 EDT AM EDT Resulting Agency Comment Spec In Lab Parviz Modi MD CHEMISTRY ORDERABLES Performing Organization Address City/[facility] [place] [address] (ABNORMAL) Magnesium (10/30/2021 3:45 AM EDT) P athologist Signature Magnesium 0.62 (L) 0.69 - 1.07 [facility] mmol/L [facility] LABORATORY Specimen Anatomical Collection Method Collection Time Receive d Time (Source) Location / / Volume Laterality Blood 10/30/2021 3:45 AM 4:00 EDT AM EDT Resulting Agency Comment Spec In Lab Parviz Modi MD CHEMISTRY ORDERABLES Performing Organization Address City/State/[place] [address] (ABNORMAL) Basic Metabolic Panel (non-fasting) (10/30/2021 3:45 AM EDT) P athologist Signature Glucose Lvl 97 65 - 199 [facility] mg/dL [facility] LABORATORY Comment: Diabetes: >=200 mg/dL plus symp toms BUN 57 (H) 10 - 20 mg/dL [facility] LABORATORY Creatinine 1.69 (H) 0.80 - 1.50 mg/dL [facility] LABORATORY Sodium 139 135 - 145 mmol/L [facility]ORY Potassium 5.1 (H) 3.5 - 5.0 mmol/L [facility]ORY Comment: Please note: ??Patients with WBC >100,00 0 may have falsely elevated Potassium levels. ??For accurate Potassium quantif ication in these patients send serum separator tube (gold top) for subsequent determinations. ??Contact the Clinical Chemistry Laboratory if there are any qu estions. Chloride 117 (H) 98 - 107 mmol/L [facility] CO2 12 (L) 22 - 31 mmol/L [facility] Anion Gap 10 5 - 15 mmol/L [facility]ORY Calcium 9.1 8.5 - 10.5 mg/dL [facility]ORY Estimated GFR 43 (L) >=60 mL/min/1.73 m?? [facility] Comment: This patient? s estimated glomerular filtration rate (eGFR) is between 43 mL/min/1.73 m2 (patients with less muscl e mass per kg body weight) and 50 mL/min/1.73 m2 (patients with more muscl e [...] (Source) Location / / Volume Laterality Blood 10/30/2021 3:45 AM 4:00 EDT AM EDT Resulting Agency Comment Spec In Lab Parviz Modi MD CHEMISTRY ORDERABLES Performing Organization Address City/State/[place] [address] (ABNORMAL) Hemogram (10/29/2021 3:43 AM EDT) P athologist Signature WBC 0.0 4.0 - 9.5 [facility] (Critical) x10(3)/[facility] LABORATORY Comment: Diff not performed-WBC Less miguel a n or equal to 0.25. RBC 2.19 (L) 4.58 - 5.54 x10(6)/[facility] LABORATORY Hemoglobin 7.4 (L) 13.7 - 16.5 g/dL [facility] LABORATORY Hematocrit 21.4 (L) 40.5 - 48.5 % [facility] LABORATORY MCV 97.7 (H) 82.9 - 93.1 fL [facility] MCH 33.8 (H) 27.5 - 32.1 pg [facility] MCHC 34.6 32.0 - 35.7 g/dL [facility] LABORATORY Platelets 18 (Critical) 145 - 357 x10(3)/[facility] LABORATORY RDWSD 59.6 (H) 36.0 - 45.0 [facility] LABORATORY RDWCV 16.9 (H) 11.4 - 13.8 % [facility] LABORATORY MPV Not Measured 7.6 - 12.9 [facility] LABORATORY nRBC Abs Auto 0.000 0.000 - 0.000 x10(3)/[facility] LABORATORY Specimen Anatomical Collection Method Collection Time Receive d Time (Source) Location / / Volume Laterality Blood 10/29/2021 3:43 AM 2 4:05 EDT AM EDT Resulting Agency Comment Spec In Lab Parviz Modi MD HEMATOLOGY ORDERABLES Performing Organization Address City/[facility]/ZIP Code Phon e Number [address] Phosphorus (10/29/2021 3:43 AM EDT) P athologist Signature Phosphorus 4.4 2.5 - 4.5 [facility] mg/dL [facility] LABORATORY Specimen Anatomical Collection Method Collection Time Receive d Time (Source) Location / / Volume Laterality Blood 10/29/2021 3:43 AM 2 4:05 EDT AM EDT Resulting Agency Comment Spec In Lab Parviz Modi MD CHEMISTRY ORDERABLES Performing Organization Address City/State/ZIP Code Phon e Number [address] Magnesium (10/29/2021 3:43 AM EDT) P athologist Signature Magnesium 0.71 0.69 - 1.07 [facility] mmol/L [facility] LABORATORY Specimen Anatomical Collection Method Collection Time Receive d Time (Source) Location / / Volume Laterality Blood 10/29/2021 3:43 AM 2 4:05 EDT AM EDT Resulting Agency Comment Spec In Lab Parviz Modi MD CHEMISTRY ORDERABLES Performing Organization Address City/State/ZIP [place] [address] (ABNORMAL) Basic Metabolic Panel (non-fasting) (10/29/2021 3:43 AM EDT) P athologist Signature Glucose Lvl 94 65 - 199 [facility] mg/dL [facility] Comment: Diabetes: >=200 mg/dL plus symp toms BUN 58 (H) 10 - 20 mg/dL [facility] Creatinine 1.65 (H) 0.80 - 1.50 mg/dL [facility] Sodium 139 135 - 145 mmol/L [facility] Potassium 5.1 (H) 3.5 - 5.0 mmol/L [facility] Comment: Please note: ??Patients with WBC >100,00 0 may have falsely elevated Potassium levels. ??For accurate Potassium quantif ication in these patients send serum separator tube (gold top) for subsequent determinations. ??Contact the Clinical Chemistry Laboratory if there are any qu estions. Chloride 115 (H) 98 - 107 mmol/L [facility] CO2 13 (L) 22 - 31 mmol/L [facility] Anion Gap 11 5 - 15 mmol/L [facility] Calcium 9.4 8.5 - 10.5 mg/dL [facility] Estimated GFR 44 (L) >=60 mL/min/1.73 m?? [facility] Comment: This patient? s estimated glomerular filtration rate (eGFR) is between 44 mL/min/1.73 m2 (patients with less muscl e mass per kg body weight) and 51 mL/min/1.73 m2 (patients with more muscl e [...] (Source) Location / / Volume Laterality Blood 10/29/2021 3:43 AM 4:05 EDT AM EDT Resulting Agency Comment Spec In Lab Parviz Modi MD CHEMISTRY ORDERABLES Performing Organization Address City/State/[place] [address] (ABNORMAL) Urinalysis Microscopic Exam (10/28/2021 5:06 PM EDT) [facility] Method Time Signature RBC UA 9 (H) 0 - 3 [facility] WBC UA 2 0 - 3 [facility] Bacteria UA Moderate (A) None /HPF [facility] Squam Epith 2 <=4 /HPF [facility] Gran Cast UA <1 (H) <=0 /LPF [facility] WBC Cast UA <1 (H) <=0 /LPF [facility] Uric Ac Isaura Occasional (A) None /HPF [facility] Specimen Anatomical Collection Method Collection Time Receive d Time (Source) Location / / Volume Laterality Clean Catch 10/28/2021 5:06 PM 5:47 Urine EDT PM EDT Resulting Agency Comment Spec In Lab Tonio Diaz Jr., MD URINE ORDERABLES Performing Organization Address City/[facility]/ZIP Code Phon e Number [address] Urine Hold (10/28/2021 5:06 PM EDT) P athologist Signature Urine Hold Sample in [facility]ORATORY Specimen Anatomical Collection Method Collection Time Receive d Time (Source) Location / / Volume Laterality Urine Urine / Unknown 10/28/2021 5:06 PM 2021 5:47 EDT PM EDT Tonio Diaz Jr., MD URINE ORDERABLES Performing Organization Address City/[facility]/ZIP [facility] [place] [address] (ABNORMAL) Urinalysis with reflex Culture (10/28/2021 5:06 PM EDT) [facility] [employer] Method Time Signature Glucose UA Negative Negative [facility] Protein UA 100 (A) Negative [facility] Bilirubin UA Negative Negative [facility] Comment: Clinical correlation required for positi ve Urine Bilirubin results as false positive may occur with some drugs and d rug related products. If a false positive is suspected a serum total bili estrella should be considered if clinically indicated. Urobilinogen UA Normal Normal mg/dL [facility] pH UA 5.5 5.0 - 8.0 [facility] Blood UA Moderate (A) Negative mg/dL [facility] Ketones UA Trace (A) Negative mg/dL [facility] Nitrite UA Negative Negative [facility] Leukocytes UA Negative Negative [facility]ATORY Appearance UA Cloudy (A) Clear [facility] Spec Ulm UA 1.024 1.005 - 1.030 [facility] Color UA Yellow Yellow [facility] Culture Reflexed No [facility] Specimen Anatomical Collection Method Collection Time Receive d Time (Source) Location / / Volume Laterality Clean Catch 10/28/2021 5:06 PM 5:47 Urine EDT PM EDT Resulting Agency Comment Spec In Lab Urban Dos Santos MD URINE ORDERABLES Performing Organization Address City/[facility]/ZIP Code Phon e Number [address] C. Difficile Screen (10/28/2021 12:07 PM EDT) Analysis Performed At [facility] Time Signature C Diff Screen Negative Negative [facility] Comment: Ag/Tox Neg C. diff?? Negative Clostridium difficile is not present in the specimen. If patient is having diarrhea suspected to be from an infecti ous cause, then Soap & Water Contact Precautions are still required. Specimen Anatomical Collection Method Collection Time Receive d Time (Source) Location / / Volume Laterality Stool 10/28/2021 12:07 10/28/2021 PM EDT 12:48 PM EDT Resulting Agency Comment Spec In Lab Urban Dos Santos MD MICROBIOLOGY - GENERAL ORDER BRINA Performing Organization Address City/[facility]/ZIP [place] [address] (ABNORMAL) Platelet count (10/28/2021 8:50 AM EDT) athologist Signature Platelets 29 (L) 145 - 357 [facility] x10(3)/[facility] LABORATORY Plat Immature 1.2 0.0 - 7.4 [facility] % % [facility] Comment: Limitation of the Immature Platelet Frac tion (IPF)-May be less reliable when the platelet count is less than 81i579/u L due to statistical imprecision. The IPF value provides an assessment of the Bone Marrow production status. ??It is useful in differentiating Thrombocyto penia caused by platelet destruction/consumption versus decreased production. It also helps to determine the imminent release of platelets and ca n be therefore a helpful parameter in Chemotherapy and Bone marrow transplant patients. ELEVATED IPF value: ?? When the bone marrow is in a state of over production such as when increased destruction and consumption are the unde rlying issue. ?? When the marrow is recovering post ch emotherapy or bone marrow transplant. LOW to NORMAL IPF value: ?? When the bone marrow in not respondin g and is in a decreased state of production. References: [employer] The Clinical Value of the Immature Platelet Fraction (IPF) in Cell Recovery Document Number [id number] 01/2011 [employer] The Role of the Imm ature Platelet Fraction (IPF) in the Differential Diagnosis of Thrombocytopen ia, Document [id number] V012/26/13 P012/28 Specimen Anatomical Collection Method Collection Time Receive d Time (Source) Location / / Volume Laterality Blood 10/28/2021 8:50 AM 9:09 EDT AM EDT Resulting Agency Comment Spec In Lab Parviz Modi MD HEMATOLOGY ORDERABLES Performing Organization Address City/State/[place] [address] Tacrolimus level (10/28/2021 8:50 AM EDT) athologist Signature Tacrolimus Lvl 9.4 ng/mL [facility] Comment: Trough therapeutic range is [...] (Source) Location / / Volume Laterality Blood 10/28/2021 8:50 AM 2 9:09 EDT AM EDT Resulting Agency Comment Spec In Lab Parviz Modi MD CHEMISTRY ORDERABLES Performing Organization Address [facility]/ZIP [facility] Phon e Number [address] Prepare Platelets, Apheresis (10/28/2021 5:10 AM EDT) P athologist Signature Dispensed? Yes [facility] Specimen Anatomical Collection Method Collection Time Receive d Time (Source) Location / / Volume Laterality Blood 10/28/2021 5:10 AM 2 5:08 EDT AM EDT Urban Dos Santos MD BLOOD BANK ORDERABLES Performing Organization Address City/[facility] [place] [address] (ABNORMAL) Hemogram (10/28/2021 4:45 AM EDT) P athologist Signature WBC 0.1 4.0 - 9.5 [facility] (Critical) x10(3)/[facility] LABORATORY Comment: Diff not performed-WBC Less miguel a n or equal to 0.25. RBC 2.30 (L) 4.58 - 5.54 x10(6)/[facility] LABORATORY Hemoglobin 7.9 (L) 13.7 - 16.5 g/dL [facility] Hematocrit 22.3 (L) 40.5 - 48.5 % [facility] MCV 97.0 (H) 82.9 - 93.1 fL [facility] MCH 34.3 (H) 27.5 - 32.1 pg [facility] MCHC 35.4 32.0 - 35.7 g/dL [facility] Platelets 10 (Critical) 145 - 357 x10(3)/[facility] LABORATORY RDWSD 61.0 (H) 36.0 - 45.0 fL [facility] RDWCV 17.4 (H) 11.4 - 13.8 % JIA MARX [facility] MPV Not Measured 7.6 - 12.9 fL [facility] nRBC Abs Auto 0.000 0.000 - 0.000 x10(3)/mcL [facility] Specimen Anatomical Collection Method Collection Time Receive d Time (Source) Location / / Volume Laterality Blood 10/28/2021 4:45 AM 2 4:52 EDT AM EDT Resulting Agency Comment Spec In Lab Ranjana Chavez MD HEMATOLOGY ORDERABLES Performing Organization Address City/[facility]/ZIP [place] [address] (ABNORMAL) Hepatic Function Panel (10/28/2021 4:45 AM EDT) athologist Signature Total Protein 6.8 6.1 - 8.0 [facility] g/dL [facility] Albumin 3.7 3.2 - 5.2 [facility] g/dL [facility] AST 26 0 - 39 [facility] unit/L [facility] ALT 65 (H) 0 - 55 [facility] unit/L [facility] Alk Phos 104 40 - 130 [facility]/L [facility] Total 0.3 0.2 - 1.3 [facility] Bilirubin mg/dL [facility] Bili, Direct 0.1 0.0 - 0.3 [facility] mg/dL [facility] Specimen Anatomical Collection Method Collection Time Receive d Time (Source) Location / / Volume Laterality Blood 10/28/2021 4:45 AM 2 4:52 EDT AM EDT Resulting Agency Comment Spec In Lab Parviz Modi MD CHEMISTRY ORDERABLES Performing Organization Address City/[facility] [place] [address] (ABNORMAL) Phosphorus (10/28/2021 4:45 AM EDT) P athologist Signature Phosphorus 4.7 (H) 2.5 - 4.5 [facility] mg/dL [facility] Specimen Anatomical Collection Method Collection Time Receive d Time (Source) Location / / Volume Laterality Blood 10/28/2021 4:45 AM 2 4:52 EDT AM EDT Resulting Agency Comment Spec In Lab Sona Freitas MD CHEMISTRY ORDERABLES Performing Organization Address City/[facility]/ZIP Code Phon e Number [address] Magnesium (10/28/2021 4:45 AM EDT) athologist Signature Magnesium 0.79 0.69 - 1.07 [facility]/L [facility] Specimen Anatomical Collection Method Collection Time Receive d Time (Source) Location / / Volume Laterality Blood 10/28/2021 4:45 AM 2 4:52 EDT AM EDT Resulting Agency Comment Spec In Lab Sona Freitas MD CHEMISTRY ORDERABLES Performing Organization Address City/[facility]/ZIP Code Phon e Number [address] (ABNORMAL) Basic Metabolic Panel (non-fasting) (10/28/2021 4:45 AM EDT) athologist Signature Glucose Lvl 99 65 - 199 [facility] mg/dL [facility] Comment: Diabetes: >=200 mg/dL plus symp toms BUN 57 (H) 10 - 20 mg/dL [facility] Creatinine 1.52 (H) 0.80 - 1.50 mg/dL [facility] Sodium 136 135 - 145 mmol/L [facility] Potassium 5.0 3.5 - 5.0 mmol/L [facility] Comment: Please note: ??Patients with WBC >100,00 0 may have falsely elevated Potassium levels. ??For accurate Potassium quantif ication in these patients send serum separator tube (gold top) for subsequent determinations. ??Contact the Clinical Chemistry Laboratory if there are any qu estions. Chloride 114 (H) 98 - 107 mmol/L [facility] CO2 11 (L) 22 - 31 mmol/L [facility] Anion Gap 11 5 - 15 mmol/L [facility] Calcium 9.4 8.5 - 10.5 mg/dL [facility] Estimated GFR 49 (L) >=60 mL/min/1.73 m?? [facility] Comment: This patient? s estimated glomerular filtration rate (eGFR) is between 49 mL/min/1.73 m2 (patients with less muscl e [...] (Source) Location / / Volume Laterality Blood 10/28/2021 4:45 AM 4:52 EDT AM EDT Resulting Agency Comment Spec In Lab Sona Freitas MD CHEMISTRY ORDERABLES Performing Organization Address City/State/Z[place] [address] (ABNORMAL) Platelet count (10/27/2021 12:50 PM EDT) athologist Signature Platelets 22 (L) 145 - 357 [facility] x10(3)/[facility] LABORATORY Plat Immature 2.3 0.0 - 7.4 [facility] % % [facility] Comment: Limitation of the Immature Platelet Frac tion (IPF)-May be less reliable when the platelet count is less than 09c958/u L due to statistical imprecision. The IPF value provides an assessment of the Bone Marrow production status. ??It is useful in differentiating Thrombocyto penia caused by platelet destruction/consumption versus decreased production. It also helps to determine the imminent release of platelets and ca n be therefore a helpful parameter in Chemotherapy and Bone marrow transplant patients. ELEVATED IPF value: ?? When the bone marrow is in a state of over production such as when increased destruction and consumption are the unde rlying issue. ?? When the marrow is recovering post ch emotherapy or bone marrow transplant. LOW to NORMAL IPF value: ?? When the bone marrow in not respondin g and is in a decreased state of production. References: [employer] The Clinical Value of the Immature Platelet Fraction (IPF) in Cell Recovery Document Number [id number] 01/2011 [employer] The Role of the Imm ature Platelet Fraction (IPF) in the Differential Diagnosis of Thrombocytopen ia, Document [id number] V012/26/13 P012/28 Specimen Anatomical Collection Method Collection Time Receive d Time (Source) Location / / Volume Laterality Blood 10/27/2021 12:50 10/27/2021 1:08 PM EDT PM EDT Resulting Agency Comment Spec In Lab Parviz Modi MD HEMATOLOGY ORDERABLES Performing Organization Address City/State/ZIP Code Phon e Number [address] Transfuse 1 unit platelets, apheresis (10/27/2021 12:11 PM EDT) Sona Freitas MD NURSING TREATMENT ORDERABLES - BLOOD ADMIN Transfuse 1 unit platelets, apheresis (10/27/2021 12:11 PM EDT) Sona Freitas MD NURSING TREATMENT ORDERABLES - BLOOD ADMIN Prepare Platelets, Apheresis (10/27/2021 10:05 AM EDT) P athologist Signature Dispensed? Yes [facility] Specimen Anatomical Collection Method Collection Time Receive d Time (Source) Location / / Volume Laterality Blood 10/27/2021 10:05 10/27/2021 AM EDT 10:04 AM EDT Sona Freitas MD BLOOD BANK ORDERABLES Performing Organization Address City/[facility]/ZIP Code Phon e Number [address] Scan, Peripheral Blood (10/27/2021 5:30 AM EDT) Patholo gist Method Time Signature Plat Estimate Decreased [facility] RBC Morphology Abnormal [facility] Microcytes 1-5 /HPF [facility] Ovalocytes 1-5 /HPF [facility] Tear Drop Cells 1-5 /HPF [facility] Reed Cells 1-5 /HPF [facility] Dohle Bodies Present [facility] Specimen Anatomical Collection Method Collection Time Receive d Time (Source) Location / / Volume Laterality Blood 10/27/2021 5:30 AM 5:46 EDT AM EDT Resulting Agency Comment Spec In Lab Parviz Modi MD HEMATOLOGY ORDERABLES Performing Organization Address City/State/ZIP Code Phon e Number [place] [id number]ORY [address] (ABNORMAL) Differential, Automated (10/27/2021 5:30 AM EDT) [facility] Method Time Signature Neutrophils % 97.5 % [facility] Neutr Abs (ANC) 0.39 1.70 - [facility] (Critical 6.10 [facility] ) x10(3)/[facility] LABORATORY Lymphocytes % 0.0 % [facility] Lymphocytes Abs 0.0 (L) 0.9 - 3.2 [facility] x10(3)/[facility] LABORATORY Monocytes % 0.0 % [facility] Monocyte Abs 0.0 (L) 0.3 - 0.9 [facility] x10(3)/[facility] LABORATORY Eosinophils % 2.5 % [facility] Eosinophils Abs 0.0 0.0 - 0.4 [facility] x10(3)/[facility] LABORATORY Basophils % 0.0 % [facility] Basophils Abs 0.0 0.0 - 0.1 [facility] x10(3)/[facility] LABORATORY Immature Gran % 0.00 % [facility] Comment: Immature granulocytes(IG's)percentage an d absolute count will include metamyelocytes, myelocytes, and promyelo cytes. Blood smears from CBCs yielding IG's will be scanned manually for concor dance. If this scan disagrees with the automated IG or if promyelocytes are not ed, a manual differential will be performed. [facility] Gran Abs 0.00 0.00 - 0.04 x10(3)/[facility] Specimen Anatomical Collection Method Collection Time Receive d Time (Source) Location / / Volume Laterality Blood 10/27/2021 5:30 AM 5:46 EDT AM EDT Resulting Agency Comment Spec In Lab Parviz Modi MD HEMATOLOGY ORDERABLES Performing Organization Address City/State/[place] [address] (ABNORMAL) Hemogram (10/27/2021 5:30 AM EDT) [facility] gist Method Time Signature WBC 0.4 4.0 - 9.5 [facility] ([facility] x10(3)/[facility] LABORATORY RBC 2.56 (L) 4.58 - [facility] 5.54 [facility] x10(6)/[facility] LABORATORY Hemoglobin 8.6 (L) 13.7 - [facility] 16.5 g/dL [facility] Hematocrit 25.0 (L) 40.5 - [facility] 48.5 % [facility] MCV 97.7 (H) 82.9 - [facility] 93.1 [facility] LABORATORY MCH 33.6 (H) 27.5 - [facility] 32.1 pg [facility] MCHC 34.4 32.0 - [facility] 35.7 g/dL [facility] Platelets 10 145 - 357 [facility] (Critical) x10(3)/[facility] LABORATORY RDWSD 62.9 (H) 36.0 - [facility] 45.0 [facility] LABORATORY RDWCV 17.9 (H) 11.4 - [facility] 13.8 % [facility] MPV Not Measured 7.6 - [facility] 12.9 [facility] nRBC Abs Auto 0.000 0.000 - [facility] 0.000 [facility] x10(3)/[facility] LABORATORY Specimen Anatomical Collection Method Collection Time Receive d Time (Source) Location / / Volume Laterality Blood 10/27/2021 5:30 AM 2 5:46 EDT AM EDT Resulting Agency Comment Spec In Lab Parviz Modi MD HEMATOLOGY ORDERABLES Performing Organization Address City/[facility]/ZIP Code Phon e Number [address] (ABNORMAL) Phosphorus (10/27/2021 5:30 AM EDT) athologist Signature Phosphorus 4.6 (H) 2.5 - 4.5 [facility] mg/dL [facility] Specimen Anatomical Collection Method Collection Time Receive d Time (Source) Location / / Volume Laterality Blood 10/27/2021 5:30 AM 2 5:46 EDT AM EDT Resulting Agency Comment Spec In Lab Parviz Modi MD CHEMISTRY ORDERABLES Performing Organization Address City/[facility]/ZIP [place] [address] Magnesium (10/27/2021 5:30 AM EDT) athologist Signature Magnesium 1.00 0.69 - 1.07 [facility] mmol/L [facility] Specimen Anatomical Collection Method Collection Time Receive d Time (Source) Location / / Volume Laterality Blood 10/27/2021 5:30 AM 2 5:46 EDT AM EDT Resulting Agency Comment Spec In Lab Parviz Modi MD CHEMISTRY ORDERABLES Performing Organization Address City/[facility]/ZIP [place] [address] (ABNORMAL) Basic Metabolic Panel (non-fasting) (10/27/2021 5:30 AM EDT) P athologist Signature Glucose Lvl 102 65 - 199 [facility] mg/dL [facility] Comment: Diabetes: >=200 mg/dL plus symp toms BUN 54 (H) 10 - 20 mg/dL [facility] Creatinine 1.49 0.80 - 1.50 mg/dL [facility] Sodium 136 135 - 145 [...] Chloride 110 (H) 98 - 107 mmol/L [facility] CO2 13 (L) 22 - 31 mmol/L [facility] Anion Gap 13 5 - 15 mmol/L [facility] Calcium 9.8 8.5 - 10.5 mg/dL [facility] Estimated GFR 50 (L) >=60 mL/min/1.73 m?? [facility] Comment: This patient? s estimated glomerular filtration rate (eGFR) is between 50 mL/min/1.73 m2 (patients with less muscl e mass per kg body weight) and 58 mL/min/1.73 m2 (patients with more muscl e [...] (Source) Location / / Volume Laterality Blood 10/27/2021 5:30 AM 2 5:46 EDT AM EDT Resulting Agency Comment Spec In Lab Parviz Modi MD CHEMISTRY ORDERABLES Performing Organization Address City/State/[place] [address] Scan, Peripheral Blood (10/26/2021 3:25 AM EST) [facility] gist Method Time Signature Plat Estimate Decreased [facility] RBC Morphology Abnormal [facility] Macrocytes 1-5 /HPF [facility] Microcytes 1-5 /HPF [facility] Ovalocytes 1-5 /HPF [facility] Tear Drop Cells 1-5 /HPF [facility] [place] Cells 1-5 /HPF [facility] Toxic Present [facility] LABORATORY Dohle Bodies Present [facility] Specimen Anatomical Collection Method Collection Time Receive d Time (Source) Location / / Volume Laterality Blood 10/26/2021 3:25 AM 3:32 EST AM EST Resulting Agency Comment Spec In Lab Parviz Modi MD HEMATOLOGY ORDERABLES Performing Organization Address City/[facility] [place] [address] Type and Screen Validity (10/26/2021 3:25 AM EST) [facility] Method Time Signature T&S only valid [facility] LABORATORY Comment: This Type and Screen result is only valid at the [facility] Specimen Anatomical Collection Method Collection Time Receive d Time (Source) Location / / Volume Laterality Blood Venous Draw / 10/26/2021 3:25 AM 10/27/19 22 3:34 Unknown EST AM EST Resulting Agency Comment Spec In Lab Sona Freitas MD BLOOD BANK ORDERABLES Performing Organization Address City/[facility]/ZIP [place] [address] ABORH Recheck Status (10/26/2021 3:25 AM EST) [facility] Method Time Signature ABORH Type Completed [facility] LABORATORY Specimen Anatomical Collection Method Collection Time Receive d Time (Source) Location / / Volume Laterality Blood Venous Draw / 10/26/2021 3:25 AM 10/27/19 22 3:34 Unknown EST AM EST Resulting Agency Comment Spec In Lab Sona Freitas MD BLOOD BANK ORDERABLES Performing Organization Address City/[facility]/ZIP [place] [address] Antibody screen manual (10/26/2021 3:25 AM EST) Analysis Performed At Patho logist Time Signature AB Screen Negative [facility] LABORATORY Specimen Anatomical Collection Method Collection Time Receive d Time (Source) Location / / Volume Laterality Blood Venous Draw / 10/26/2021 3:25 AM 10/27/19 22 3:34 Unknown EST AM EST Resulting Agency Comment Spec In Lab Sona Freitas MD BLOOD BANK ORDERABLES Performing Organization Address City/[facility] Phon e Number [place] [phone] [facility] LAB[address]ORY Drive ABORh Type Manual (10/26/2021 3:25 AM EST) [facility] Method Time Signature Expires at 10/29/2021 [facility] [id number] on: [facility] LABORATORY ABORh Type O Pos [facility] LABORATORY Comment: 10/26/2021 04:47 ??KHANBI Allogeneic Transplant Recipient: 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 Recipient pre-Transplant ABORH: O pos Donor ABORH: O neg Any questions/concerns call Ext [phone]. Specimen Anatomical Collection Method Collection Time Receive d Time (Source) Location / / Volume Laterality Blood Venous Draw / 10/26/2021 3:25 AM 10/27/19 22 3:34 Unknown EST AM EST Resulting Agency Comment Spec In Lab Sona Freitas MD BLOOD BANK ORDERABLES Performing Organization Address City/[facility]/ZIP Code Phon e Number [address] ABORH Recheck Status (10/26/2021 3:25 AM EST) [facility] [employer] Method Time Signature ABORH Type Completed [facility] LABORATORY Specimen Anatomical Collection Method Collection Time Receive d Time (Source) Location / / Volume Laterality Blood 10/26/2021 3:25 AM 3:34 EST AM EST Resulting Agency Comment Spec In Lab Sona Freitas MD BLOOD BANK ORDERABLES Performing Organization Address City/[facility]/Z[place] [address] [facility] [address] Antibody screen (10/26/2021 3:25 AM EST) [facility] Method Time Signature Ab Screen Not Performed [facility] LABORATORY Expires at 10/29/2021 [facility] 2359 on: [facility] LABORATORY Specimen Anatomical Collection Method Collection Time Receive d Time (Source) Location / / Volume Laterality Blood 10/26/2021 3:25 AM 3:34 EST AM EST Resulting Agency Comment Spec In Lab Sona Freitas MD BLOOD BANK ORDERABLES Performing Organization Address City/State/ZIP Code Phon e Number [address] (ABNORMAL) Differential, Automated (10/26/2021 3:25 AM EST) [facility] Method Time Signature Neutrophils % 94.6 % [facility] LABORATORY Neutr Abs (ANC) 0.53 (L) 1.70 - [facility] 6.10 [facility] x10(3)/[facility] LABORATORY Lymphocytes % 0.0 % [facility] LABORATORY Lymphocytes Abs 0.0 (L) 0.9 - 3.2 [facility] x10(3)/[facility] LABORATORY Monocytes % 0.0 % [facility] LABORATORY Monocyte Abs 0.0 (L) 0.3 - 0.9 [facility] x10(3)[facility] LABORATORY Eosinophils % 0.0 % [facility] LABORATORY Eosinophils Abs 0.0 0.0 - 0.4 [facility] x10(3)/[facility] LABORATORY Basophils % 0.0 % [facility] LABORATORY Basophils Abs 0.0 0.0 - 0.1 [facility] x10(3)/[facility] LABORATORY Immature Gran % 5.40 % [facility] LABORATORY Comment: Immature granulocytes(IG's)percentage an d absolute count will include metamyelocytes, myelocytes, and promyelo cytes. Blood smears from CBCs yielding IG's will be scanned manually for concor dance. If this scan disagrees with the automated IG or if promyelocytes are not ed, a manual differential will be performed. Zara Gran Abs 0.03 0.00 - 0.04 x10(3)/[facility] LABORATORY Specimen Anatomical Collection Method Collection Time Receive d Time (Source) Location / / Volume Laterality Blood 10/26/2021 3:25 AM 3:32 EST AM EST Resulting Agency Comment Spec In Lab Parviz Modi MD HEMATOLOGY ORDERABLES Performing Organization Address City/State/[place] [address] (ABNORMAL) Hemogram (10/26/2021 3:25 AM EST) [facility] gist Method Time Signature WBC 0.6 4.0 - 9.5 [facility] ([facility] x[facility](3)/[facility] LABORATORY RBC 2.38 (L) 4.58 - [facility] ARASELI 5.54 [facility] x10(6)/[facility] LABORATORY Hemoglobin 8.1 (L) 13.7 - [facility] 16.5 g/dL [facility] LABORATORY Hematocrit 22.9 (L) 40.5 - [facility] 48.5 % [facility] LABORATORY MCV 96.2 (H) 82.9 - [facility] 93.1 [facility] LABORATORY MCH 34.0 (H) 27.5 - [facility] 32.1 pg [facility] LABORATORY MCHC 35.4 32.0 - [facility] 35.7 g/dL [facility] LABORATORY Platelets 16 145 - 357 [facility] (Critical) x10(3)/[facility] LABORATORY RDWSD 64.8 (H) 36.0 - [facility] ARASELI 45.0 [facility] LABORATORY RDWCV 18.7 (H) 11.4 - [facility]ELI 13.8 % [facility] LABORATORY MPV Not Measured 7.6 - [facility] 12.9 [facility] LABORATORY nRBC Abs Auto 0.000 0.000 - [facility] 0.000 [facility] x10(3)/[facility] LABORATORY Specimen Anatomical Collection Method Collection Time Receive d Time (Source) Location / / Volume Laterality Blood 10/26/2021 3:25 AM 2 3:32 EST AM EST Resulting Agency Comment Spec In Lab Parviz Modi MD HEMATOLOGY ORDERABLES Performing Organization Address City/[facility]/ZIP Code Phon e Number [address] Phosphorus (10/26/2021 3:25 AM EST) athologist Signature Phosphorus 4.0 2.5 - 4.5 [facility] mg/dL [facility] LABORATORY Specimen Anatomical Collection Method Collection Time Receive d Time (Source) Location / / Volume Laterality Blood 10/26/2021 3:25 AM 2 3:32 EST AM EST Resulting Agency Comment Spec In Lab Parviz Modi MD CHEMISTRY ORDERABLES Performing Organization Address City/[facility]/ZIP Code Phon e Number [address] (ABNORMAL) Magnesium (10/26/2021 3:25 AM EST) athologist Signature Magnesium 0.67 (L) 0.69 - 1.07 [facility] mmol/L [facility] LABORATORY Specimen Anatomical Collection Method Collection Time Receive d Time (Source) Location / / Volume Laterality Blood 10/26/2021 3:25 AM 2 3:32 EST AM EST Resulting Agency Comment Spec In Lab Parviz Modi MD CHEMISTRY ORDERABLES Performing Organization Address City/[facility]/ZIP [place] [address] (ABNORMAL) Basic Metabolic Panel (non-fasting) (10/26/2021 3:25 AM EST) athologist Signature Glucose Lvl 94 65 - 199 [facility] mg/dL [facility] LABORATORY Comment: Diabetes: >=200 mg/dL plus symp toms BUN 36 (H) 10 - 20 mg/dL [facility] LABORATORY Creatinine 1.07 0.80 - 1.50 mg/dL [facility] LABORATORY Sodium 137 135 - 145 mmol/L [facility] LABORATORY Potassium 4.7 3.5 - 5.0 mmol/L [facility] LABORATORY Comment: Please note: ??Patients with WBC >100,00 0 may have falsely elevated Potassium levels. ??For accurate Potassium quantif ication in these patients send serum separator tube (gold top) for subsequent determinations. ??Contact the Clinical Chemistry Laboratory if there are any qu estions. Chloride 113 (H) 98 - 107 mmol/L [facility] LABORATORY CO2 13 (L) 22 - 31 mmol/L [facility] LABORATORY Anion Gap 11 5 - 15 mmol/L [facility] LABORATORY Calcium 9.0 8.5 - 10.5 mg/dL [facility] LABORATORY Estimated GFR 75 >=60 mL/min/1.73 m?? [facility] LABORATORY Comment: This patient? s estimated glomerular filtration rate (eGFR) is between 75 mL/min/1.73 m2 (patients with less muscl e mass per kg body weight) and 86 mL/min/1.73 m2 (patients with more muscl e [...] (Source) Location / / Volume Laterality Blood 10/26/2021 3:25 AM 2 3:32 EST AM EST Resulting Agency Comment Spec In Lab Parviz Modi MD CHEMISTRY ORDERABLES Performing Organization Address City/State/[place] [address] Scan, Peripheral Blood (10/25/2021 2:54 AM EST) [facility] Method Time Signature Plat Estimate Decreased [facility] LABORATORY RBC Morphology Abnormal [facility] LABORATORY Microcytes 1-5 /HPF [facility] LABORATORY Ovalocytes 1-5 /HPF [facility] LABORATORY Tear Drop Cells 1-5 /HPF [facility] LABORATORY Reed Cells 1-5 /HPF [facility] LABORATORY Toxic Present [facility] LABORATORY Dohle Bodies Present [facility] LABORATORY Specimen Anatomical Collection Method Collection Time Receive d Time (Source) Location / / Volume Laterality Blood 10/25/2021 2:54 AM 3:12 EST AM EST Resulting Agency Comment Spec In Lab Parviz Modi MD HEMATOLOGY ORDERABLES Performing Organization Address City/State/[place] [address] (ABNORMAL) Differential, Automated (10/25/2021 2:54 AM EST) [facility] Method Time Signature Neutrophils % 91.3 % [facility] LABORATORY Neutr Abs (ANC) 0.95 (L) 1.70 - [facility] 6.10 [facility] x10(3)[facility] LABORATORY Lymphocytes % 1.0 % [facility] LABORATORY Lymphocytes Abs 0.0 (L) 0.9 - 3.2 [facility] x10(3)/[facility] LABORATORY Monocytes % 1.0 % [facility] LABORATORY Monocyte Abs 0.0 (L) 0.3 - 0.9 [facility] x10(3)[facility] LABORATORY Eosinophils % 0.0 % [facility] LABORATORY Eosinophils Abs 0.0 0.0 - 0.4 [facility] x10(3)[facility] LABORATORY Basophils % 0.0 % [facility] LABORATORY Basophils Abs 0.0 0.0 - 0.1 [facility] x10(3)[facility] LABORATORY Immature Gran % 6.70 % [facility] LABORATORY Comment: Immature granulocytes(IG's)percentage an d absolute count will include metamyelocytes, myelocytes, and promyelo cytes. Blood smears from CBCs yielding IG's will be scanned manually for concor dance. If this scan disagrees with the automated IG or if promyelocytes are not ed, a manual differential will be performed. Zara Gran Abs 0.07 (H) 0.00 - 0.04 x10(3)/[facility] LABORATORY Specimen Anatomical Collection Method Collection Time Receive d Time (Source) Location / / Volume Laterality Blood 10/25/2021 2:54 AM 2 3:12 EST AM EST Resulting Agency Comment Spec In Lab Parviz Modi MD HEMATOLOGY ORDERABLES Performing Organization Address City/State/[place] [address] (ABNORMAL) Hemogram (10/25/2021 2:54 AM EST) [facility] gist Method Time Signature WBC 1.0 4.0 - 9.5 [facility] (Critical) x10(3)/[facility] LABORATORY RBC 2.14 (L) 4.58 - [facility] 5.54 [facility] x10(6)/[facility] LABORATORY Hemoglobin 7.4 (L) 13.7 - [facility] 16.5 g/dL [facility] LABORATORY Hematocrit 21.0 (L) 40.5 - [facility] 48.5 % [facility] LABORATORY MCV 98.1 (H) 82.9 - [facility] 93.1 [facility] LABORATORY MCH 34.6 (H) 27.5 - [facility] 32.1 pg [facility] LABORATORY MCHC 35.2 32.0 - [facility] 35.7 g/dL [facility] LABORATORY Platelets 21 (L) 145 - 357 [facility] x10(3)/[facility] LABORATORY RDWSD 69.4 (H) 36.0 - [facility] 45.0 [facility] LABORATORY RDWCV 19.9 (H) 11.4 - [facility] ARASELI 13.8 % [facility] LABORATORY MPV Not Measured 7.6 - [facility] 12.9 [facility] LABORATORY nRBC % Auto 0.0 % [facility] LABORATORY nRBC Abs Auto 0.000 0.000 - [facility] 0.000 [facility] x10(3)/[facility] LABORATORY Specimen Anatomical Collection Method Collection Time Receive d Time (Source) Location / / Volume Laterality Blood 10/25/2021 2:54 AM 2 3:12 EST AM EST Resulting Agency Comment Spec In Lab Parviz Modi MD HEMATOLOGY ORDERABLES Performing Organization Address City/[facility]/ZIP Code Phon e Number [address] Phosphorus (10/25/2021 2:54 AM EST) athologist Signature Phosphorus 3.6 2.5 - 4.5 [facility] mg/dL [facility] LABORATORY Specimen Anatomical Collection Method Collection Time Receive d Time (Source) Location / / Volume Laterality Blood 10/25/2021 2:54 AM 2 3:12 EST AM EST Resulting Agency Comment Spec In Lab Parviz Modi MD CHEMISTRY ORDERABLES Performing Organization Address City/[facility]/ZIP Code Phon e Number [address] Magnesium (10/25/2021 2:54 AM EST) athologist Signature Magnesium 0.77 0.69 - 1.07 [facility]L [facility] LABORATORY Specimen Anatomical Collection Method Collection Time Receive d Time (Source) Location / / Volume Laterality Blood 10/25/2021 2:54 AM 2 3:12 EST AM EST Resulting Agency Comment Spec In Lab Parviz Modi MD CHEMISTRY ORDERABLES Performing Organization Address City/[facility]/ZIP [facility] [place] [address] (ABNORMAL) Basic Metabolic Panel (non-fasting) (10/25/2021 2:54 AM EST) athologist Signature Glucose Lvl 107 65 - 199 [facility] mg/dL [facility] LABORATORY Comment: Diabetes: >=200 mg/dL plus symp toms BUN 30 (H) 10 - 20 mg/dL [facility] LABORATORY Creatinine 1.22 0.80 - 1.50 mg/dL [facility] LABORATORY Sodium 140 135 - 145 mmol/L [facility] LABORATORY Potassium 4.5 3.5 - 5.0 mmol/L [facility] LABORATORY Comment: Please note: ??Patients with WBC >100,00 0 may have falsely elevated Potassium levels. ??For accurate Potassium quantif ication in these patients send serum separator tube (gold top) for subsequent determinations. ??Contact the Clinical Chemistry Laboratory if there are any qu estions. Chloride 113 (H) 98 - 107 mmol/L [facility] LABORATORY CO2 15 (L) 22 - 31 mmol/L [facility] LABORATORY Anion Gap 12 5 - 15 mmol/L [facility] LABORATORY Calcium 9.1 8.5 - 10.5 mg/dL [facility] LABORATORY Estimated GFR 64 >=60 mL/min/1.73 m?? [facility] LABORATORY Comment: This patient? s estimated glomerular filtration rate (eGFR) is between 64 mL/min/1.73 m2 (patients with less muscl e mass per kg body weight) and 74 mL/min/1.73 m2 (patients with more muscl e [...] (Source) Location / / Volume Laterality Blood 10/25/2021 2:54 AM 2 3:12 EST AM EST Resulting Agency Comment Spec In Lab Parviz Modi MD CHEMISTRY ORDERABLES Performing Organization Address City/State/[place] [address] Hepatic Function Panel (10/25/2021 2:54 AM EST) P athologist Signature Total Protein 6.5 6.1 - 8.0 [facility] g/dL [facility] LABORATORY Albumin 3.4 3.2 - 5.2 [facility] g/dL [facility] LABORATORY AST 19 0 - 39 [facility] unit/L [facility] LABORATORY ALT 28 0 - 55 [facility] unit/L [facility] LABORATORY Alk Phos 68 40 - 130 [facility] unit/L [facility] LABORATORY Total 0.3 0.2 - 1.3 [facility] Bilirubin mg/dL [facility] LABORATORY Bili, Direct 0.1 0.0 - 0.3 [facility] mg/dL [facility] LABORATORY Specimen Anatomical Collection Method Collection Time Receive d Time (Source) Location / / Volume Laterality Blood 10/25/2021 2:54 AM 2 3:12 EST AM EST Resulting Agency Comment Spec In Lab Parviz Modi MD CHEMISTRY ORDERABLES Performing Organization Address City/State/ZIP Code Phon e Number [address] Transfuse RBC (10/24/2021 10:56 AM EST) Sona Freitas MD NURSING TREATMENT ORDERABLES - BLOOD ADMIN Transfuse RBC (10/24/2021 10:56 AM EST) Sona Freitas MD NURSING TREATMENT ORDERABLES - BLOOD ADMIN Tacrolimus level (10/24/2021 8:30 AM EST) P athologist Signature Tacrolimus Lvl 6.6 ng/mL [facility] LABORATORY Comment: Trough therapeutic range is [...] (Source) Location / / Volume Laterality Blood 10/24/2021 8:30 AM 2 9:31 EST AM EST Resulting Agency Comment Spec In Lab Parviz Modi MD CHEMISTRY ORDERABLES Performing Organization Address City/[facility]/ZIP Code Phon e Number [address] Prepare RBC (10/24/2021 7:40 AM EST) P athologist Signature Dispensed? Yes [facility] LABORATORY Specimen Anatomical Collection Method Collection Time Receive d Time (Source) Location / / Volume Laterality Blood 10/24/2021 7:40 AM 2 7:37 EST AM EST Sona Freitas MD BLOOD BANK ORDERABLES Performing Organization Address City/[facility]/ZIP [place] [address] Scan, Peripheral Blood (10/24/2021 3:16 AM EST) [facility] Method Time Signature Plat Estimate Decreased [facility] LABORATORY RBC Morphology Abnormal [facility] LABORATORY Macrocytes 1-5 /HPF [facility] LABORATORY Microcytes 1-5 /HPF [facility] LABORATORY Hypochromia Slight [facility] LABORATORY Ovalocytes 1-5 /HPF [facility] LABORATORY Tear Drop Cells 1-5 /HPF [facility] LABORATORY Toxic Present [facility] LABORATORY Dohle Bodies Present [facility] LABORATORY Specimen Anatomical Collection Method Collection Time Receive d Time (Source) Location / / Volume Laterality Blood 10/24/2021 3:16 AM 2 3:34 EST AM EST Resulting Agency Comment Spec In Lab Parviz Modi MD HEMATOLOGY ORDERABLES Performing Organization Address City/[facility]/ZIP [place] [address] (ABNORMAL) Differential, Automated (10/24/2021 3:16 AM EST) [facility] Method Time Signature Neutrophils % 93.2 % [facility] LABORATORY Neutr Abs (ANC) 1.50 (L) 1.70 - [facility] 6.10 [facility] x10(3)/[facility] LABORATORY Lymphocytes % 0.0 % [facility] LABORATORY Lymphocytes Abs 0.0 (L) 0.9 - 3.2 [facility] x10(3)/[facility] LABORATORY Monocytes % 0.0 % [facility] LABORATORY Monocyte Abs 0.0 (L) 0.3 - 0.9 [facility] x10(3)/[facility] LABORATORY Eosinophils % 0.6 % [facility] LABORATORY Eosinophils Abs 0.0 0.0 - 0.4 [facility] x10(3)/[facility] LABORATORY Basophils % 0.0 % [facility] LABORATORY Basophils Abs 0.0 0.0 - 0.1 [facility] x10(3)/[facility] LABORATORY Immature Gran % 6.20 % [facility] LABORATORY Comment: Immature granulocytes(IG's)percentage an d absolute count will include metamyelocytes, myelocytes, and promyelo cytes. Blood smears from CBCs yielding IG's will be scanned manually for concor dance. If this scan disagrees with the automated IG or if promyelocytes are not ed, a manual differential will be performed. Zara Gran Abs 0.10 (H) 0.00 - 0.04 x10(3)/[facility] LABORATORY Specimen Anatomical Collection Method Collection Time Receive d Time (Source) Location / / Volume Laterality Blood 10/24/2021 3:16 AM 3:34 EST AM EST Resulting Agency Comment Spec In Lab Parviz Modi MD HEMATOLOGY ORDERABLES Performing Organization Address City/State/Z[place] [address] (ABNORMAL) Hemogram (10/24/2021 3:16 AM EST) [facility] gist Method Time Signature WBC 1.6 4.0 - 9.5 [facility] (Critical) x10(3)/[facility] LABORATORY RBC 1.88 (L) 4.58 - [facility] 5.54 [facility] x10(6)/[facility] LABORATORY Hemoglobin 6.6 (L) 13.7 - [facility] 16.5 g/dL [facility] LABORATORY Hematocrit 19.0 (L) 40.5 - [facility] 48.5 % [facility] LABORATORY MCV 101.1 (H) 82.9 - [facility] 93.1 fL [facility] LABORATORY MCH 35.1 (H) 27.5 - [facility] 32.1 pg [facility] LABORATORY MCHC 34.7 32.0 - [facility] 35.7 g/dL [facility] LABORATORY Platelets 30 (L) 145 - 357 [facility] x[facility](3[facility] LABORATORY RDWSD 63.7 (H) 36.0 - [facility] 45.0 [facility] LABORATORY RDWCV 17.7 (H) 11.4 - [facility] [place] 13.8 % [facility] LABORATORY MPV 14.1 (H) 7.6 - 12.9 [facility] LABORATORY nRBC % Auto 0.0 % [facility] nRBC Abs Auto 0.000 0.000 - [facility] [place] 0.000 [facility] x10(3)/[facility] LABORATORY Specimen Anatomical Collection Method Collection Time Receive d Time (Source) Location / / Volume Laterality Blood 10/24/2021 3:16 AM 2 3:34 EST AM EST Resulting Agency Comment Spec In Lab Parviz Modi MD HEMATOLOGY ORDERABLES Performing Organization Address [facility] Hospital/[facility] Phon e Number [address] Hepatic Function Panel (10/24/2021 3:16 AM EST) P athologist Signature Total Protein 6.3 6.1 - 8.0 JIA ARASELI g/dL [facility] LABORATORY Albumin 3.2 3.2 - 5.2 JIA ARASELI g/dL [facility] LABORATORY AST 16 0 - 39 JIA ARASELI unit/L [facility] LABORATORY ALT 28 0 - 55 JIA ARASELI unit/L [facility] LABORATORY Alk Phos 70 40 - 130 [facility] ARASELI unit/L [facility] LABORATORY Total 0.3 0.2 - 1.3 JIA ARASELI Bilirubin mg/dL [facility] LABORATORY Bili, Direct 0.1 0.0 - 0.3 JIA ARASELI mg/dL [facility] LABORATORY Specimen Anatomical Collection Method Collection Time Receive d Time (Source) Location / / Volume Laterality Blood 10/24/2021 3:16 AM 2 3:34 EST AM EST Resulting Agency Comment Spec In Lab Parviz Modi MD CHEMISTRY ORDERABLES Performing Organization Address City/[facility] Phon e Number [address] Phosphorus (10/24/2021 3:16 AM EST) athologist Signature Phosphorus 3.4 2.5 - 4.5 [facility] LABORATORY Specimen Anatomical Collection Method Collection Time Receive d Time (Source) Location / / Volume Laterality Blood 10/24/2021 3:16 AM 2 3:34 EST AM EST Resulting Agency Comment Spec In Lab Parviz Modi MD CHEMISTRY ORDERABLES Performing Organization Address City/[facility]/ZIP Code Phon e Number [address] Magnesium (10/24/2021 3:16 AM EST) athologist Signature Magnesium 0.78 0.69 - 1.07 [facility] mmol/L [facility] LABORATORY Specimen Anatomical Collection Method Collection Time Receive d Time (Source) Location / / Volume Laterality Blood 10/24/2021 3:16 AM 2 3:34 EST AM EST Resulting Agency Comment Spec In Lab Parviz Modi MD CHEMISTRY ORDERABLES Performing Organization Address City/[facility] [place] [address] (ABNORMAL) Basic Metabolic Panel (non-fasting) (10/24/2021 3:16 AM EST) athologist Signature Glucose Lvl 118 65 - 199 [facility] mg/dL [facility] LABORATORY Comment: Diabetes: >=200 mg/dL plus symp toms BUN 24 (H) 10 - 20 mg/dL [facility] LABORATORY Creatinine 1.06 0.80 - 1.50 mg/dL [facility] LABORATORY Sodium 137 135 - 145 mmol/L [facility] LABORATORY Potassium 4.0 3.5 - 5.0 mmol/L [facility] LABORATORY Comment: Please note: ??Patients with WBC >100,00 0 may have falsely elevated Potassium levels. ??For accurate Potassium quantif ication in these patients send serum separator tube (gold top) for subsequent determinations. ??Contact the Clinical Chemistry Laboratory if there are any qu estions. Chloride 110 (H) 98 - 107 mmol/L [facility] LABORATORY CO2 17 (L) 22 - 31 mmol/L [facility] LABORATORY Anion Gap 10 5 - 15 mmol/L [facility] LABORATORY Calcium 8.7 8.5 - 10.5 mg/dL [facility] LABORATORY Estimated GFR 75 >=60 mL/min/1.73 m?? [facility] LABORATORY Comment: This patient? s estimated glomerular filtration rate (eGFR) is between 75 mL/min/1.73 m2 (patients with less muscl e mass per kg body weight) and 87 mL/min/1.73 m2 (patients with more muscl e [...] (Source) Location / / Volume Laterality Blood 10/24/2021 3:16 AM 2 3:34 EST AM EST Resulting Agency Comment Spec In Lab Parviz Modi MD CHEMISTRY ORDERABLES Performing Organization Address City/State/ZIP [place] [address] Scan, Peripheral Blood (10/23/2021 4:05 AM EST) [facility] gist Method Time Signature Plat Estimate Decreased [facility] LABORATORY RBC Morphology Abnormal [facility] LABORATORY Macrocytes 1-5 /HPF [facility] LABORATORY Microcytes 1-5 /HPF [facility] LABORATORY Hypochromia Slight [facility] LABORATORY Ovalocytes 1-5 /HPF [facility] LABORATORY Tear Drop Cells 1-5 /HPF [facility] LABORATORY Toxic Present [facility] LABORATORY Dohle Bodies Present [facility] LABORATORY Giant Platelets Less than 1 /HPF [facility] LABORATORY Specimen Anatomical Collection Method Collection Time Receive d Time (Source) Location / / Volume Laterality Blood 10/23/2021 4:05 AM 2 4:22 EST AM EST Resulting Agency Comment Spec In Lab Parviz Modi MD HEMATOLOGY ORDERABLES Performing Organization Address City/State/[place] [address] (ABNORMAL) Differential, Automated (10/23/2021 4:05 AM EST) [facility] Method Time Signature Neutrophils % 96.7 % [facility] LABORATORY Neutr Abs (ANC) 1.77 1.70 - [facility] 6.10 [facility] x10(3)/[facility] LABORATORY Lymphocytes % 0.0 % [facility] LABORATORY Lymphocytes Abs 0.0 (L) 0.9 - 3.2 [facility] x10(3)/[facility] LABORATORY Monocytes % 1.1 % [facility] LABORATORY Monocyte Abs 0.0 (L) 0.3 - 0.9 [facility] x10(3)/[facility] LABORATORY Eosinophils % 1.1 % [facility] LABORATORY Eosinophils Abs 0.0 0.0 - 0.4 [facility] x10(3)/[facility] LABORATORY Basophils % 0.0 % [facility] LABORATORY Basophils Abs 0.0 0.0 - 0.1 [facility] x10(3)/[facility] LABORATORY Immature Gran % 1.10 % [facility] LABORATORY Comment: Immature granulocytes(IG's)percentage an d absolute count will include metamyelocytes, myelocytes, and promyelo cytes. Blood smears from CBCs yielding IG's will be scanned manually for concor dance. If this scan disagrees with the automated IG or if promyelocytes are not ed, a manual differential will be performed. Zara Gran Abs 0.02 0.00 - 0.04 x10(3)/[facility] LABORATORY Specimen Anatomical Collection Method Collection Time Receive d Time (Source) Location / / Volume Laterality Blood 10/23/2021 4:05 AM 2 4:22 EST AM EST Resulting Agency Comment Spec In Lab Parviz Modi MD HEMATOLOGY ORDERABLES Performing Organization Address City/State/ZIP Code Phon e Number [address] (ABNORMAL) Hemogram (10/23/2021 4:05 AM EST) [facility] Method Time Signature WBC 1.8 4.0 - 9.5 [facility] (Critical) x10(3)/[facility] LABORATORY RBC 2.02 (L) 4.58 - JIA ARASELI 5.54 [facility] x10(6)/[facility] LABORATORY Hemoglobin 7.0 (L) 13.7 - [facility] 16.5 g/dL [facility] LABORATORY Hematocrit 20.7 (L) 40.5 - [facility] 48.5 % [facility] LABORATORY MCV 102.5 (H) 82.9 - [facility] 93.1 [facility] LABORATORY MCH 34.7 (H) 27.5 - JIA ARASELI 32.1 pg [facility] LABORATORY MCHC 33.8 32.0 - JIA ARASELI 35.7 g/dL [facility] LABORATORY Platelets 44 (L) 145 - 357 [facility] x10(3)/[facility] LABORATORY RDWSD 68.4 (H) 36.0 - [facility] 45.0 [facility] LABORATORY RDWCV 18.3 (H) 11.4 - [facility] 13.8 % [facility] LABORATORY MPV 13.4 (H) 7.6 - 12.9 [facility] LABORATORY nRBC % Auto 0.0 % [facility] LABORATORY nRBC Abs Auto 0.000 0.000 - [facility] 0.000 [facility] x10(3)/[facility] LABORATORY Specimen Anatomical Collection Method Collection Time Receive d Time (Source) Location / / Volume Laterality Blood 10/23/2021 4:05 AM 4:22 EST AM EST Resulting Agency Comment Spec In Lab Parviz Modi MD HEMATOLOGY ORDERABLES Performing Organization Address City/State/ZIP Code Phon e Number [address] IgG (10/23/2021 4:05 AM EST) P athologist Signature IgG 914 700 - 1,600 JIA ARASELI mg/dL [facility] LABORATORY Comment: Pediatric Reference Intervals obtained f rom the Caliper Reference Interval project. http://www.iMusica.ca/caliperp roject/index.html Specimen Anatomical Collection Method Collection Time Receive d Time (Source) Location / / Volume Laterality Blood 10/23/2021 4:05 AM 2 4:22 EST AM EST Resulting Agency Comment Spec In Lab Parviz Modi MD IMMUNOLOGY ORDERABLES Performing Organization Address City/State/ZIP Code Phon e Number [address] Phosphorus (10/23/2021 4:05 AM EST) athologist Signature Phosphorus 2.5 2.5 - 4.5 JIA ARASELI mg/dL [facility] LABORATORY Specimen Anatomical Collection Method Collection Time Receive d Time (Source) Location / / Volume Laterality Blood 10/23/2021 4:05 AM 2 4:22 EST AM EST Resulting Agency Comment Spec In Lab Parviz Modi MD CHEMISTRY ORDERABLES Performing Organization Address City/State/ZIP Code Phon e Number [address] Magnesium (10/23/2021 4:05 AM EST) athologist Signature Magnesium 0.76 0.69 - 1.07 JIA ARASELI mmol/L [facility] LABORATORY Specimen Anatomical Collection Method Collection Time Receive d Time (Source) Location / / Volume Laterality Blood 10/23/2021 4:05 AM 2 4:22 EST AM EST Resulting Agency Comment Spec In Lab Parviz Modi MD CHEMISTRY ORDERABLES Performing Organization Address City/[facility]/ZIP [place] [address] (ABNORMAL) Basic Metabolic Panel (non-fasting) (10/23/2021 4:05 AM EST) athologist Signature Glucose Lvl 120 65 - 199 JIA PIERREARASELI mg/dL [facility] LABORATORY Comment: Diabetes: >=200 mg/dL plus symp toms BUN 26 (H) 10 - 20 mg/dL [facility] LABORATORY Creatinine 1.14 0.80 - 1.50 mg/dL [facility] LABORATORY Sodium 134 (L) 135 - 145 mmol/L [facility] Chloride 112 (H) 98 - 107 mmol/L [facility] LABORATORY CO2 13 (L) 22 - 31 mmol/L [facility] LABORATORY Anion Gap 9 5 - 15 mmol/L [facility] LABORATORY Calcium 8.4 (L) 8.5 - 10.5 mg/dL [facility] LABORATORY Estimated GFR 69 >=60 mL/min/1.73 m?? [facility] LABORATORY Comment: This patient? s estimated [...] (Source) Location / / Volume Laterality Blood 10/23/2021 4:05 AM 4:22 EST AM EST Resulting Agency Comment Spec In Lab Parviz Modi MD CHEMISTRY ORDERABLES Performing Organization Address City/State/ZIP Code Phon e Number [address] (ABNORMAL) Hepatic Function Panel (10/23/2021 4:05 AM EST) P athologist Signature Total Protein 5.9 (L) 6.1 - 8.0 [facility] LABORATORY Albumin 3.0 (L) 3.2 - 5.2 [facility] g/dL [facility] LABORATORY AST 21 0 - 39 [facility]/L [facility] LABORATORY ALT 22 0 - 55 [facility]/L [facility] LABORATORY Alk Phos 68 40 - 130 [facility] unit/L [facility] LABORATORY Total 0.3 0.2 - 1.3 [facility] Bilirubin mg/dL [facility] LABORATORY Bili, Direct 0.1 0.0 - 0.3 [facility] mg/dL [facility] LABORATORY Specimen Anatomical Collection Method Collection Time Receive d Time (Source) Location / / Volume Laterality Blood 10/23/2021 4:05 AM 4:22 EST AM EST Resulting Agency Comment Spec In Lab Parviz Modi MD CHEMISTRY ORDERABLES Performing Organization Address City/State/ZIP Code Phon e Number [address] ABORH Recheck Status (10/22/2021 10:02 PM EST) [facility] Method Time Signature ABORH Type Completed [facility] LABORATORY Specimen Anatomical Collection Method Collection Time Receive d Time (Source) Location / / Volume Laterality Blood 10/22/2021 10:02 10/22/2021 PM EST 10:15 PM EST Resulting Agency Comment Spec In Lab Sona Freitas MD BLOOD BANK ORDERABLES Performing Organization Address City/State/ZIP Code Phon e Number [address] Type and Screen Validity (10/22/2021 10:02 PM EST) [facility] Method Time Signature T&S only valid [facility] H[facility] at [facility] LABORATORY Comment: This Type and Screen result is only valid at the [facility] Hospital Specimen Anatomical Collection Method Collection Time Receive d Time (Source) Location / / Volume Laterality Blood 10/22/2021 10:02 10/22/2021 PM EST 10:15 PM EST Resulting Agency Comment Spec In Lab Sona Freitas MD BLOOD BANK ORDERABLES Performing Organization Address [facility] [place] [address] Antibody screen (10/22/2021 10:02 PM EST) [facility] Method Time Signature Ab Screen Negative [facility] LABORATORY Expires at 10/25/2021 [facility] [id number] on: [facility] LABORATORY Specimen Anatomical Collection Method Collection Time Receive d Time (Source) Location / / Volume Laterality Blood 10/22/2021 10:02 10/22/2021 PM EST 10:15 PM EST Resulting Agency Comment Spec In Lab Sona Freitas MD BLOOD BANK ORDERABLES Performing Organization Address [facility] [place] [address] ABO/Rh Typing (10/22/2021 10:02 PM EST) P athologist Signature ABORh Type O Pos [facility] LABORATORY Comment: 10/22/2021 23:15 ??KHANBI Allogeneic Transplant Recipient: 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 Recipient pre-Transplant ABORH: O Pos Donor ABORH: O Neg Any questions/concerns call Ext [phone]. Specimen Anatomical Collection Method Collection Time Receive d Time (Source) Location / / Volume Laterality Blood 10/22/2021 10:02 10/22/2021 PM EST 10:15 PM EST Resulting Agency Comment Spec In Lab Sona Freitas MD BLOOD BANK ORDERABLES Performing Organization Address [facility] [place] [address] Transfusion Reaction Interp (10/22/2021 2:53 PM EST) [facility] Method Time Signature Trans RXN INTERPRETATION: Febrile non- hemolytic transfusion reaction. The patient is JIA Ragland approved to receive future t ransfusions. Please refer to the clinical note for P[place] a complete summary of this transfusion reaction. [facility] Mee yLman MD LABORATORY Transfusion Medicine Service 10/28/21 11:36 Comment: Mee Lyman, Pathologist Verified:10/28/21 Specimen Anatomical Collection Method Collection Time Receive d Time (Source) Location / / Volume Laterality Blood No Charge / 10/22/2021 2:53 PM 2 2:59 Unknown EST PM EST Resulting Agency Comment Spec In Lab Chai Luna MD BLOOD BANK ORDERABLES Performing Organization Address City/[facility]/ZIP Code Phon e Number [address] Scan, Peripheral Blood (10/22/2021 3:13 AM EST) [facility] Signature Plat Estimate Decreased [facility] LABORATORY RBC Morphology Abnormal [facility] LABORATORY Macrocytes 1-5 /HPF [facility] LABORATORY Microcytes 1-5 /HPF [facility] LABORATORY Ovalocytes 1-5 /HPF [facility] LABORATORY Tear Drop Cells 1-5 /HPF [facility] LABORATORY [place] Cells 1-5 /HPF [facility] LABORATORY Specimen Anatomical Collection Method Collection Time Receive d Time (Source) Location / / Volume Laterality Blood 10/22/2021 3:13 AM 2 3:23 EST AM EST Resulting Agency Comment Spec In Lab Parviz Modi MD HEMATOLOGY ORDERABLES Performing Organization Address City/[facility]/ZIP [place] [address] (ABNORMAL) Differential, Automated (10/22/2021 3:13 AM EST) [employer] Method Time Signature Neutrophils % 86.4 % [facility] LABORATORY Neutr Abs (ANC) 0.57 (L) 1.70 - [facility] 6.10 [facility] x10(3)/[facility] L LABORATORY Lymphocytes % 0.0 % [facility] LABORATORY Lymphocytes Abs 0.0 (L) 0.9 - 3.2 [facility] x10(3)/[facility] LABORATORY Monocytes % 3.0 % [facility] LABORATORY Monocyte Abs 0.0 (L) 0.3 - 0.9 [facility] x10(3)/[facility] LABORATORY Eosinophils % 1.5 % [facility] LABORATORY Eosinophils Abs 0.0 0.0 - 0.4 [facility] x10(3)/[facility] LABORATORY Basophils % 0.0 % [facility] LABORATORY Basophils Abs 0.0 0.0 - 0.1 [facility] x10(3)/[facility] LABORATORY Immature Gran % 9.10 % [facility] LABORATORY Comment: Immature granulocytes(IG's)percentage an d absolute count will include metamyelocytes, myelocytes, and promyelo cytes. Blood smears from CBCs yielding IG's will be scanned manually for concor dance. If this scan disagrees with the automated IG or if promyelocytes are not ed, a manual differential will be performed. Zara Gran Abs 0.06 (H) 0.00 - 0.04 x10(3)/[facility] LABORATORY Specimen Anatomical Collection Method Collection Time Receive d Time (Source) Location / / Volume Laterality Blood 10/22/2021 3:13 AM 3:23 EST AM EST Resulting Agency Comment Spec In Lab Parviz Modi MD HEMATOLOGY ORDERABLES Performing Organization Address City/State/[place] [address] (ABNORMAL) Hemogram (10/22/2021 3:13 AM EST) P athologist Signature WBC 0.7 4.0 - 9.5 [facility] (Critical) x10(3)/[facility] LABORATORY RBC 2.14 (L) 4.58 - [facility] 5.54 [facility] x10(6)/[facility] LABORATORY Hemoglobin 7.3 (L) 13.7 - [facility] 16.[facility] g/dL [facility] LABORATORY Comment: This result has been called to YVETTE PICHARDO by Maldonado Friedman on 10 22 2021 at 0354, and has been read back. Hematocrit 21.8 (L) 40.5 - 48.5 % [facility] LABORATORY MCV 101.9 (H) 82.9 - 93.1 fL [facility] LABORATORY MCH 34.1 (H) 27.5 - 32.1 pg [facility] LABORATORY MCHC 33.5 32.0 - 35.7 g/dL [facility] LABORATORY Platelets 59 (L) 145 - 357 x10(3)/[facility] LABORATORY RDWSD 70.3 (H) 36.0 - 45.0 fL [facility] LABORATORY RDWCV 18.8 (H) 11.4 - 13.8 % [facility] LABORATORY MPV 11.2 7.6 - 12.9 [facility] LABORATORY nRBC Abs Auto 0.000 0.000 - 0.000 x10(3)/[facility] LABORATORY Specimen Anatomical Collection Method Collection Time Receive d Time (Source) Location / / Volume Laterality Blood 10/22/2021 3:13 AM 2 3:23 EST AM EST Resulting Agency Comment Spec In Lab Parviz Modi MD HEMATOLOGY ORDERABLES Performing Organization Address City/[facility]/ZIP Code Phon e Number [address] Phosphorus (10/22/2021 3:13 AM EST) P athologist Signature Phosphorus 3.1 2.5 - 4.5 [facility] mg/dL [facility] LABORATORY Specimen Anatomical Collection Method Collection Time Receive d Time (Source) Location / / Volume Laterality Blood 10/22/2021 3:13 AM 2 3:23 EST AM EST Resulting Agency Comment Spec In Lab Parviz Modi MD CHEMISTRY ORDERABLES Performing Organization Address City/[facility]/ZIP Code Phon e Number [address] Magnesium (10/22/2021 3:13 AM EST) athologist Signature Magnesium 0.89 0.69 - 1.07 [facility] mmol/L [facility] LABORATORY Specimen Anatomical Collection Method Collection Time Receive d Time (Source) Location / / Volume Laterality Blood 10/22/2021 3:13 AM 3:23 EST AM EST Resulting Agency Comment Spec In Lab Parviz Modi MD CHEMISTRY ORDERABLES Performing Organization Address City/State/Z[place] [address] (ABNORMAL) Basic Metabolic Panel (non-fasting) (10/22/2021 3:13 AM EST) P athologist Signature Glucose Lvl 119 65 - 199 [facility] mg/dL [facility] LABORATORY Comment: Diabetes: >=200 mg/dL plus symp toms BUN 34 (H) 10 - 20 mg/dL [facility] LABORATORY Creatinine 1.09 0.80 - 1.50 mg/dL [facility] LABORATORY Sodium 138 135 - 145 mmol/L [facility] LABORATORY Potassium 3.9 3.5 - 5.0 mmol/L [facility] LABORATORY Comment: Please note: ??Patients with WBC >100,00 0 may have falsely elevated Potassium levels. ??For accurate Potassium quantif ication in these patients send serum separator tube (gold top) for subsequent determinations. ??Contact the Clinical Chemistry Laboratory if there are any qu estions. Chloride 111 (H) 98 - 107 mmol/L [facility] LABORATORY CO2 16 (L) 22 - 31 mmol/L [facility] LABORATORY Anion Gap 11 5 - 15 mmol/L [facility] LABORATORY Calcium 8.4 (L) 8.5 - 10.5 mg/dL [facility] LABORATORY Estimated GFR 73 >=60 mL/min/1.73 m?? [facility] LABORATORY Comment: This patient? s estimated glomerular filtration rate (eGFR) is between 73 mL/min/1.73 m2 (patients with less muscl e mass per kg body weight) and 84 mL/min/1.73 m2 (patients with more muscl e [...] (Source) Location / / Volume Laterality Blood 10/22/2021 3:13 AM 2 3:23 EST AM EST Resulting Agency Comment Spec In Lab Parviz Modi MD CHEMISTRY ORDERABLES Performing Organization Address City/[facility] Phon e Number [address] SCAN DOC: LAB (10/22/2021 12:00 AM EST) Narrative This result has an attachment that is no t available. Unknown MEDIA MGR SCAN EXT ORDR/RSLT Hepatic Function Panel (10/21/2021 4:45 AM EST) athologist Signature Total Protein 6.2 6.1 - 8.0 JIA ARASELI g/dL [facility] LABORATORY Albumin 3.3 3.2 - 5.2 JIA ARASELI g/dL [facility] LABORATORY AST 26 0 - 39 JIA ARASELI unit/L [facility] LABORATORY ALT 34 0 - 55 JIA ARASELI unit/L [facility] LABORATORY Alk Phos 59 40 - 130 JIA ARASELI unit/L [facility] LABORATORY Total 0.4 0.2 - 1.3 J[facility] ARASELI Bilirubin mg/dL [facility] LABORATORY Bili, Direct 0.1 0.0 - 0.3 JIA ARASELI mg/dL [facility] LABORATORY Specimen Anatomical Collection Method Collection Time Receive d Time (Source) Location / / Volume Laterality Blood 10/21/2021 4:45 AM 2 4:55 EST AM EST Resulting Agency Comment Spec In Lab Parviz Modi MD CHEMISTRY ORDERABLES Performing Organization Address City[facility] Center[place]IP [facility] [place] Phon [place] Number [address] Phosphorus (10/21/2021 4:45 AM EST) athologist Signature Phosphorus 2.8 2.5 - 4.5 [facility] mg/dL [facility] LABORATORY Specimen Anatomical Collection Method Collection Time Receive d Time (Source) Location / / Volume Laterality Blood 10/21/2021 4:45 AM 2 4:55 EST AM EST Resulting Agency Comment Spec In Lab Parviz Modi MD CHEMISTRY ORDERABLES Performing Organization Address City/[facility]/ZIP [place] [address] Magnesium (10/21/2021 4:45 AM EST) athologist Signature Magnesium 1.04 0.69 - 1.07 [facility] mmol/L [facility] LABORATORY Specimen Anatomical Collection Method Collection Time Receive d Time (Source) Location / / Volume Laterality Blood 10/21/2021 4:45 AM 2 4:55 EST AM EST Resulting Agency Comment Spec In Lab Parviz Modi MD CHEMISTRY ORDERABLES Performing Organization Address City/[facility]/ZIP Code Phon e Number [address] (ABNORMAL) Basic Metabolic Panel (non-fasting) (10/21/2021 4:45 AM EST) athologist [facility] Glucose Lvl 153 65 - 199 [facility] mg/dL [facility] LABORATORY Comment: Diabetes: >=200 mg/dL plus symp toms BUN 31 (H) 10 - 20 mg/dL [facility] LABORATORY Creatinine 1.01 0.80 - 1.50 mg/dL [facility] LABORATORY Sodium 138 135 - 145 mmol/L [facility] LABORATORY Potassium 3.7 3.5 - 5.0 mmol/L [facility] LABORATORY Comment: Please note: ??Patients with WBC >100,00 0 may have falsely elevated Potassium levels. ??For accurate Potassium quantif ication in these patients send serum separator tube (gold top) for subsequent determinations. ??Contact the Clinical Chemistry Laboratory if there are any qu estions. Chloride 107 98 - 107 mmol/L [facility] LABORATORY CO2 16 (L) 22 - 31 mmol/L [facility] LABORATORY Anion Gap 15 5 - 15 mmol/L [facility] LABORATORY Calcium 8.6 8.5 - 10.5 mg/dL [facility] LABORATORY Estimated GFR 80 >=60 mL/min/1.73 m?? [facility] LABORATORY Comment: This patient? s estimated [...] (Source) Location / / Volume Laterality Blood 10/21/2021 4:45 AM 2 4:55 EST AM EST Resulting Agency Comment Spec In Lab Parviz Modi MD CHEMISTRY ORDERABLES Performing Organization Address City/[facility] Phon e Number [address] Blood culture (10/20/2021 5:32 PM EST) [facility] Method Time Signature Blood Culture No growth [facility] ARASELI at 5 days. [facility] LABORATORY Specimen Anatomical Collection Method Collection Time Receive d Time (Source) Location / / Volume Laterality Blood 10/20/2021 5:32 PM 2 6:47 EST PM EST Resulting Agency Comment Spec In Lab Luis Manuel Goodrich Jr., MD MICROBIOLOGY - BLOOD ORDERAB LES Performing Organization Address [facility] Phon e Number [address] Blood culture (10/20/2021 5:32 PM EST) [facility] Method Time Signature Blood Culture No growth [facility] ARASELI at 5 days. [facility] LABORATORY Specimen Anatomical Collection Method Collection Time Receive d Time (Source) Location / / Volume Laterality Blood 10/20/2021 5:32 PM 2 6:48 EST PM EST Resulting Agency Comment Spec In Lab Luis Manuel Goodrich Jr., MD MICROBIOLOGY - BLOOD ORDERAB LES Performing Organization Address City/[facility]/ZIP Code Phon e Number [address] Magnesium (10/20/2021 5:32 PM EST) athologist Signature Magnesium 1.05 0.69 - 1.07 [facility] mmol/L [facility] LABORATORY Comment: result rechecked-nb Specimen Anatomical Collection Method Collection Time Receive d Time (Source) Location / / Volume Laterality Blood 10/20/2021 5:32 PM 2 5:56 EST PM EST Resulting Agency Comment Spec In Lab Luis Manuel Goodrich Jr., MD CHEMISTRY ORDERABLES Performing Organization Address City/[facility] [place] [address] (ABNORMAL) Basic Metabolic Panel (non-fasting) (10/20/2021 5:32 PM EST) athologist Signature Glucose Lvl 122 65 - 199 [facility] mg/dL [facility] LABORATORY Comment: Diabetes: >=200 mg/dL plus symp toms BUN 29 (H) 10 - 20 mg/dL [facility] LABORATORY Creatinine 1.05 0.80 - 1.50 mg/dL [facility] LABORATORY Sodium 134 (L) 135 - 145 mmol/L [facility] LABORATORY Potassium 4.2 3.5 - 5.0 mmol/L [facility] LABORATORY Comment: Please note: ??Patients with WBC >100,00 0 may have falsely elevated Potassium levels. ??For accurate Potassium quantif ication in these patients send serum separator tube (gold top) for subsequent determinations. ??Contact the Clinical Chemistry Laboratory if there are any qu estions. Chloride 106 98 - 107 mmol/L [facility] LABORATORY CO2 17 (L) 22 - 31 mmol/L [facility] LABORAT[facility] Anion Gap 11 5 - 15 mmol/L [facility]ORATORY Calcium 8.8 8.5 - 10.5 mg/dL [facility] LABORATORY Estimated GFR 76 >=60 mL/min/1.73 m?? [facility]AT[facility] Comment: This patient? s estimated glomerular filtration rate (eGFR) is between 76 mL/min/1.73 m2 (patients with less muscl e mass per kg body weight) and 88 mL/min/1.73 m2 (patients with more muscl e [...] (Source) Location / / Volume Laterality Blood 10/20/2021 5:32 PM 2 5:56 EST PM EST Resulting Agency Comment Spec In Lab Luis Manuel Goodrich Jr., MD CHEMISTRY ORDERABLES Performing Organization Address City/State/Z[place] [address] (ABNORMAL) Differential, Manual (10/20/2021 3:50 AM EST) [facility] gist Method Time Signature Neutrophil % 89 % [facility] LABORATORY Lymphocyte % 1 % [facility] Monocyte % 9 % [facility] LAB[facility]ORY Metamyelo % 1 % [facility] LABORATORY Neutrophil Abs 1.0 (L) 1.7 - 6.1 [facility] x10(3)/[facility] LABORATORY Neutr Abs (ANC) 1.03 (L) 1.70 - [facility] 6.10 [facility] x10(3)/[facility] LABORATORY Lymphocyte Abs 0.0 (L) 0.9 - 3.2 [facility] x10(3)/[facility] LABORATORY Monocyte Abs 0.1 (L) 0.3 - 0.9 [facility] LABORATORY Metamyelo Abs 0.0 0.0 - 0.0 [facility] x[facility](3[facility] LABORATORY Tot Diff Cell [address] [facility] [address] [facility] LABORATORY Plat Estimate Decreased [facility] LABORATORY RBC Morphology Abnormal [facility] LABORATORY Macrocytes 1-5 /HPF [facility] LABORATORY Microcytes 1-5 /HPF [facility] LABORATORY Ovalocytes 1-5 /HPF [facility] LABORATORY Tear Drop Cells 1-5 /HPF [facility] LABORATORY Specimen Anatomical Collection Method Collection Time Receive d Time (Source) Location / / Volume Laterality Blood 10/20/2021 3:50 AM 4:04 EST AM EST Resulting Agency Comment Spec In Lab Parviz Modi MD HEMATOLOGY ORDERABLES Performing Organization Address City/State/ZIP [place] [address] (ABNORMAL) Hemogram (10/20/2021 3:50 AM EST) [facility] gist Method Time Signature WBC 1.2 4.0 - 9.5 [facility] [place] (Critical) x10(3)/[facility] LABORATORY RBC 2.76 (L) 4.58 - [facility]RE[facility]EL[facility] 5.54 [facility] x10(6)/[facility] LABORATORY Hemoglobin 9.4 (L) 13.7 - [facility]ELI 16.5 g/dL [facility] LABORATORY Hematocrit 28.5 (L) 40.5 - [facility] 48.5 % [facility] LABORATORY MCV 103.3 (H) 82.9 - [facility] 93.1 [facility] LABORATORY MCH 34.1 (H) 27.5 - [facility] 32.1 pg [facility] LABORATORY MCHC 33.0 32.0 - [facility] ARASELI 35.7 g/dL [facility] LABORATORY Platelets 80 (L) 145 - 357 [facility] [place] x10(3)/[facility] LABORATORY RDWSD 73.7 (H) 36.0 - [facility] ARASELI 45.0 [facility] LABORATORY RDWCV 19.9 (H) 11.4 - [facility] MARX 13.8 % [facility] LABORATORY MPV 12.1 7.6 - 12.9 [facility] LABORATORY nRBC % Auto 2.6 % [facility] LABORATORY nRBC Abs Auto 0.030 (H) 0.000 - [facility] MARX 0.000 [facility] x10(3)/[facility] LABORATORY Specimen Anatomical Collection Method Collection Time Receive d Time (Source) Location / / Volume Laterality Blood 10/20/2021 3:50 AM 2 4:04 EST AM EST Resulting Agency Comment Spec In Lab Parviz Modi MD HEMATOLOGY ORDERABLES Performing Organization Address City/[facility]/ZIP Code Phon e Number [address] (ABNORMAL) Phosphorus (10/20/2021 3:50 AM EST) P athologist Signature Phosphorus 2.0 (L) 2.5 - 4.5 [facility] mg/dL [facility] LABORATORY Specimen Anatomical Collection Method Collection Time Receive d Time (Source) Location / / Volume Laterality Blood 10/20/2021 3:50 AM 2 4:04 EST AM EST Resulting Agency Comment Spec In Lab Parviz Modi MD CHEMISTRY ORDERABLES Performing Organization Address City/[facility]/ZIP [place] [address] (ABNORMAL) Magnesium (10/20/2021 3:50 AM EST) P athologist Signature Magnesium 0.64 (L) 0.69 - 1.07 [facility]/L [facility] LABORATORY Specimen Anatomical Collection Method Collection Time Receive d Time (Source) Location / / Volume Laterality Blood 10/20/2021 3:50 AM 2 4:04 EST AM EST Resulting Agency Comment Spec In Lab Parviz Modi MD CHEMISTRY ORDERABLES Performing Organization Address City/[facility]/ZIP [facility] [place] [address] (ABNORMAL) Basic Metabolic Panel (non-fasting) (10/20/2021 3:50 AM EST) athologist Signature Glucose Lvl 140 65 - 199 [facility] mg/dL [facility] LABORATORY Comment: Diabetes: >=200 mg/dL plus symp toms BUN 26 (H) 10 - 20 mg/dL [facility] LABORATORY Creatinine 1.15 0.80 - 1.50 mg/dL [facility] LABORATORY Sodium 132 (L) 135 - 145 mmol/L [facility] LABORATORY Comment: result rechecked-EG Potassium 3.8 3.5 - 5.0 mmol/L [facility] LABORATORY Comment: Please note: ??Patients with WBC >100,00 0 may have falsely elevated Potassium levels. ??For accurate Potassium quantif ication in these patients send serum separator tube (gold top) for subsequent determinations. ??Contact the Clinical Chemistry Laboratory if there are any qu estions. Chloride 102 98 - 107 mmol/L [facility] LABORATORY CO2 16 (L) 22 - 31 mmol/L [facility] LABORATORY Anion Gap 14 5 - 15 mmol/L [facility] LABORATORY Calcium 8.9 8.5 - 10.5 mg/dL [facility] LABORATORY Estimated GFR 68 >=60 mL/min/1.73 m?? [facility] LABORATORY Comment: This patient? s estimated glomerular filtration rate (eGFR) is between 68 mL/min/1.73 m2 (patients with less muscl e mass per kg body weight) and 79 mL/min/1.73 m2 (patients with more muscl e [...] (Source) Location / / Volume Laterality Blood 10/20/2021 3:50 AM 2 4:04 EST AM EST Resulting Agency Comment Spec In Lab Parviz Modi MD CHEMISTRY ORDERABLES Performing Organization Address City/State/ZIP [place] [address] (ABNORMAL) Urinalysis Microscopic Exam (10/19/2021 5:47 PM EST) P athologist Signature RBC UA 1 0 - 3 /HPF [facility] LABORATORY WBC UA 5 (H) 0 - 3 /HPF [facility] LABORATORY Squam Epith UA 3 <=4 /HPF [facility] LABORATORY Hyaline Cast 14 (H) 0 - 2 /LPF [facility] LABORATORY Specimen Anatomical Collection Method Collection Time Receive d Time (Source) Location / / Volume Laterality Clean Catch 10/19/2021 5:47 PM 6:20 Urine EST PM EST Resulting Agency Comment Spec In Lab Aurelio Morris MD URINE ORDERABLES Performing Organization Address City/[facility]/ZIP [place] [address] (ABNORMAL) Urinalysis with reflex Culture (10/19/2021 5:47 PM EST) Patholo gist Method Time Signature Glucose UA Negative Negative [facility] mg/dL [facility] LABORATORY Protein UA 30 (A) Negative [facility] mg/dL [facility] LABORATORY Bilirubin UA Negative Negative [facility] mg/dL [facility] LABORATORY Comment: Clinical correlation required for positi ve Urine Bilirubin results as false positive may occur with some drugs and d rug related products. If a false positive is suspected a serum total bili estrella should be considered if clinically indicated. Urobilinogen UA Normal Normal mg/dL [facility] LABORAT[facility] pH UA 5.5 5.0 - 8.0 [facility] LABORATORY Blood UA Negative Negative mg/dL [facility] Ketones UA Negative Negative mg/dL [facility] LABORATORY Nitrite UA Negative Negative [facility]ORATORY Leukocytes UA Negative Negative [facility] LABORATORY Appearance UA Cloudy (A) Clear [facility] LABORATORY Spec Ulm UA 1.029 1.005 - 1.030 [facility] LABORATORY Color UA Yellow Yellow [facility] LABORATORY Culture Reflexed No [facility] LABORATORY Specimen Anatomical Collection Method Collection Time Receive d Time (Source) Location / / Volume Laterality Clean Catch 10/19/2021 5:47 PM 6:20 Urine EST PM EST Resulting Agency Comment Spec In Lab Luis Manuel Goodrich Jr., MD URINE ORDERABLES Performing Organization Address City/State/ZIP [place] [address] XR Chest PA & Lateral (Generic) (10/19/2021 1:58 PM EST) Anatomical Region Laterality Modality Chest N/A Digital Radiography Specimen (Source) Anatomical Location Collection Method / Collectio n Time Received Time / Laterality Volume Impressions 10/19/2021 2:01 PM EST Clear lungs. Thank you for letting us participate in the care of this patient. ??If you are a health care provider and have any questi ons regarding this report, please contact the number below. ??For patients who have questions please contact the health resident care supervisor that requested your imaging first. ? Narrative 10/19/2021 2:01 PM EST EXAMINATION: XR CHEST PA AND LATERAL (GENERIC) CLINICAL HISTORY: worsening fever TECHNIQUE: PA and lateral views of the chest COMPARISON: None FINDINGS: There is right-sided Cobrjq-q-Waps with its tip in the SVC. Right-sided central venous catheter with its tip in the SVC is also identified. No focal infiltrate to suggest pneumonia . No pleural effusions or pneumothorax. The heart is not enlarged. Procedure Note Domingo Lantigua MD - 10/19/2021Format ting of this note might be different from the original. EXAMINATION: XR CHEST PA AND LATERAL (GE NERIC) CLINICAL HISTORY: worsening fever TECHNIQUE: PA and lateral views of the chest COMPARISON: None FINDINGS: There is right-sided Pnvspe-n-Uoaz with its tip in the SVC. Right-sided central venous catheter with its tip in the SVC is also identified. No focal infiltrate to suggest pneumonia . No pleural effusions or pneumothorax. The heart is not enlarged. IMPRESSION Clear lungs. Thank you for letting us participate in the care of this patient. If you are a health care provider and have any questi ons regarding this report, please contact the number below. For patients w ho have questions please contact the health resident care supervisor that requested your imaging first. Luis Manuel Goodrich Jr., MD IMG DX ORDERABLES Blood culture (10/19/2021 11:39 AM EST) [employer] Method Time Signature Blood Culture No growth [facility] ARASELI at 5 days. [facility] LABORATORY Specimen Anatomical Location Collection Method Collection Time Received Time (Source) / Laterality / Volume Blood ANTECUBITAL REGION 10/19/2021 11:39 10/19 STRUCTURE / Unknown AM EST 12:37 PM EST Comment: Order for peripheral blood cult ures with temperature elevations greater than or equal to 38.3??C once or 38 ??C twice , more than one hour apart (Maximum of 2 culture sets per day). Refer to standard operating procedure for Neutropenic Fever. Resulting Agency Comment Spec In Lab Parviz Modi MD MICROBIOLOGY - BLOOD ORDERAB LES Performing Organization Address City/State/ZIP Code Ph[place] [address] (ABNORMAL) Blood culture (10/19/2021 11:33 AM EST) Component Value Ref Test Analysis [facility] At [facility] Method Time Signature Blood Culture Coagulase negative Staphylococcus species detected by ESCOBAR RO Interpretation of the importance of skin mitzy such as Coa gulase Negative ARASELI Staph, Viridans Strep, Corynebacteria an d other Gram Positive organisms from a [facility] single Blood Culture set requires clinical correlation. HOSPITAL (A) LABORATORY Gram Stain Growth detected in aerobic bottle. JIA Aerobic Gram Positive Cocci in clusters seen [place] (A) [facility] LABORATORY Organism Coagulase JIA negative [place] Staphylococcus [facility] species (A) [facility] LABORATORY Organism Gram Positive JIA Cocci in clusters [place] (A) [facility] LABORATORY Specimen Anatomical Collection Method Collection Time Receive d Time (Source) Location / / Volume Laterality Blood STRUCTURE OF RIGHT 10/19/2021 11:33 10/19 HAND / Unknown AM EST 12:35 PM EST Comment: Order for peripheral blood cult ures with temperature elevations greater than or equal to 38.3??C once or 38 ??C twice , more than one hour apart (Maximum of 2 culture sets per day). Refer to standard operating procedure for Neutropenic Fever. Resulting Agency Comment Spec In Lab Parviz Modi MD MICROBIOLOGY - BLOOD ORDERAB LES Performing Organization Address City/State/ZIP Code Phon e Number [address] C. Difficile Screen (10/19/2021 10:20 AM EST) Analysis Performed At Patho logist Time Signature C Diff Screen Negative Negative [facility] LABORATORY Comment: Ag/Tox Neg C. diff?? Negative Clostridium difficile is not present in the specimen. If patient is having diarrhea suspected to be from an infecti ous cause, then Soap & Water Contact Precautions are still required. Specimen Anatomical Collection Method Collection Time Receive d Time (Source) Location / / Volume Laterality Stool 10/19/2021 10:20 10/19/2021 AM EST 12:37 PM EST Resulting Agency Comment Spec In Lab Luis Manuel Goodrich Jr., MD MICROBIOLOGY - GENERAL ORDER BRINA Performing Organization Address City/State/ZIP Code Phon e Number [address] Phosphorus (10/19/2021 4:05 AM EST) P athologist Signature Phosphorus 2.5 2.5 - 4.5 [facility] mg/dL [facility] LABORATORY Specimen Anatomical Collection Method Collection Time Receive d Time (Source) Location / / Volume Laterality Blood 10/19/2021 4:05 AM 2 4:27 EST AM EST Resulting Agency Comment Spec In Lab Parviz Modi MD CHEMISTRY ORDERABLES Performing Organization Address City/[facility]/ZIP Code Phon e Number [address] Magnesium (10/19/2021 4:05 AM EST) P athologist Signature Magnesium 0.74 0.69 - 1.07 [facility] mmol/L [facility] LABORATORY Specimen Anatomical Collection Method Collection Time Receive d Time (Source) Location / / Volume Laterality Blood 10/19/2021 4:05 AM 2 4:27 EST AM EST Resulting Agency Comment Spec In Lab Parviz Modi MD CHEMISTRY ORDERABLES Performing Organization Address City/[facility] [place] [address] (ABNORMAL) Basic Metabolic Panel (non-fasting) (10/19/2021 4:05 AM EST) athologist Signature Glucose Lvl 182 65 - 199 [facility] mg/dL [facility] LABORATORY Comment: Diabetes: >=200 mg/dL plus symp toms BUN 23 (H) 10 - 20 mg/dL [facility] LABORATORY Creatinine 0.97 0.80 - 1.50 mg/dL [facility]OR[facility] Sodium 140 135 - 145 mmol/L [facility]OR[facility]ORY Potassium 3.7 3.5 - 5.0 mmol/L [facility] Comment: Please note: ??Patients with WBC >100,00 0 may have falsely elevated Potassium levels. ??For accurate Potassium quantif ication in these patients send serum separator tube (gold top) for subsequent determinations. ??Contact the Clinical Chemistry Laboratory if there are any qu estions. Chloride 109 (H) 98 - 107 mmol/L [facility] CO2 19 (L) 22 - 31 mmol/L [facility] Anion Gap 12 5 - 15 mmol/L [facility] Calcium 8.6 8.5 - 10.5 mg/dL [facility] Estimated GFR 84 >=60 mL/min/1.73 m?? [facility] Comment: This patient? s estimated [...] (Source) Location / / Volume Laterality Blood 10/19/2021 4:05 AM 4:27 EST AM EST Resulting Agency Comment Spec In Lab Parviz Modi MD CHEMISTRY ORDERABLES Performing Organization Address City/State/[place] [address] COVID-19 PCR (10/19/2021 4:05 AM EST) [facility] Method Time Signature SARS-CoV-2 Not Detected Not Detected [facility] Comment: This result should be interpreted [...] diagnosis of COVID-19 is performed using the [employer] Deangelo sargent DEBORAH S-CoV-2 Assay as authorized by the FDA Emergency Use Authorization (EUA). This EUA assay is intended for In-vitro Diagnostic (IVD) use with respiratory sp ecimens such as nasopharyngeal swabs collected from individuals during the ac glenda phase of infection. This assay is performed based on the instructions for use provided by [employer] and additional guidance provided by CDC and FDA. Testing is performed in the Clinical Genomics and [facility] Technolog y Laboratory within the Department of Pathology and Laboratory Medicine at [facility], certified under the Clinical Laboratory Improvement Amendments [...] clinical management guidance information are available at th e CDC Coronavirus Disease 2019 (COVID-19) webpage under Information fo r Healthcare Professionals (https://www.cdc.gov/coronavirus/2019-nc ov/hcp/index.html) Additional information about this and ot her EUA tests can be found in provider and patient fact sheets at the following FDA website: https://www.fda.gov/medical-devices/pbsypifysws-lfnewfl-9927-lunbh-78-bkiiniyuk- xhb-byajvbodqsxjop-facrnnh-devices/sadxs-xikotnrfowy-cuyu SARS-Cov-2 RNA Source ULTRASOUND SPEC Swab [facility] LABORATORY Specimen (Source) Anatomical Collection Method Collection Time Re ceived Time Location / / Volume Laterality Nasopharyngeal Swab 10/19/2021 4:05 10/19 AM EST 2:32 PM EST Comment: Symptoms->Surveillance Resulting Agency Comment Spec In Lab Luis Manuel Goodrich Jr., MD MICROBIOLOGY - GENERAL ORDER BRINA Performing Organization Address City/State/[place] [address] (ABNORMAL) Differential, Automated (10/18/2021 4:55 AM EST) [facility] Method Time Signature Neutrophils % 94.5 % [facility] Neutr Abs (ANC) 3.57 1.70 - [facility] 6.10 [facility] x10(3)/[facility] LABORATORY Lymphocytes % 0.5 % [facility] Lymphocytes Abs 0.0 (L) 0.9 - 3.2 [facility] x10(3)/[facility] LABORATORY Monocytes % 3.4 % [facility] Monocyte Abs 0.1 (L) 0.3 - 0.9 [facility] x10(3)/[facility] LABORATORY Eosinophils % 0.0 % [facility] Eosinophils Abs 0.0 0.0 - 0.4 [facility] x10(3)/[facility] LABORATORY Basophils % 0.3 % [facility] Basophils Abs 0.0 0.0 - 0.1 [facility] x10(3)/[facility] LABORATORY Immature Gran % 1.30 % [facility] Comment: Immature granulocytes(IG's)percentage an d absolute count will include metamyelocytes, myelocytes, and promyelo cytes. Blood smears from CBCs yielding IG's will be scanned manually for concor dance. If this scan disagrees with the automated IG or if promyelocytes are not ed, a manual differential will be performed. Zara Gran Abs 0.05 (H) 0.00 - 0.04 x10(3)/[facility] LABORATORY Specimen Anatomical Collection Method Collection Time Receive d Time (Source) Location / / Volume Laterality Blood 10/18/2021 4:55 AM 03/04/202 2 5:06 EST AM EST Resulting Agency Comment Spec In Lab Parviz Modi MD HEMATOLOGY ORDERABLES Performing Organization Address City/State/ZIP [place] [address] (ABNORMAL) Hemogram (10/18/2021 4:55 AM EST) [facility] Method Time Signature WBC 3.8 (L) 4.0 - 9.5 [facility] x10(3)/[facility] LABORATORY RBC 2.51 (L) 4.58 - [facility] 5.54 [facility] x10(6)/[facility] LABORATORY Hemoglobin 8.7 (L) 13.7 - [facility] g/dL [facility] Hematocrit 26.2 (L) 40.5 - [facility] 48.5 % [facility] MCV 104.4 (H) 82.9 - [facility] 93.1 [facility] LABORATORY MCH 34.7 (H) 27.5 - [facility] 32.1 pg [facility]ORY MCHC 33.2 32.0 - [facility] 35.7 g/dL [facility] Platelets 85 (L) 145 - 357 [facility] x10(3)/[facility] LABORATORY RDWSD 78.4 (H) 36.0 - [facility] 45.0 [facility] LABORATORY RDWCV 20.9 (H) 11.4 - [facility] 13.8 % [facility] LABORATORY MPV 11.2 7.6 - 12.9 [facility] LABORATORY nRBC % Auto 0.0 % [facility] nRBC Abs Auto 0.000 0.000 - [facility] 0.000 [facility] x10(3)/[facility] LABORATORY Specimen Anatomical Collection Method Collection Time Receive d Time (Source) Location / / Volume Laterality Blood 10/18/2021 4:55 AM 2 5:06 EST AM EST Resulting Agency Comment Spec In Lab Parviz Modi MD HEMATOLOGY ORDERABLES Performing Organization Address City/State/ZIP [place] [address] Phosphorus (10/18/2021 4:55 AM EST) athologist Signature Phosphorus 2.8 2.5 - 4.5 [facility] mg/dL [facility] LABORATORY Specimen Anatomical Collection Method Collection Time Receive d Time (Source) Location / / Volume Laterality Blood 10/18/2021 4:55 AM 2 5:06 EST AM EST Resulting Agency Comment Spec In Lab Parviz Modi MD CHEMISTRY ORDERABLES Performing Organization Address City/[facility]/ZIP Code Phon e Number [address] Magnesium (10/18/2021 4:55 AM EST) athologist Signature Magnesium 0.74 0.69 - 1.07 [facility] mmol/L [facility] LABORATORY Specimen Anatomical Collection Method Collection Time Receive d Time (Source) Location / / Volume Laterality Blood 10/18/2021 4:55 AM 2 5:06 EST AM EST Resulting Agency Comment Spec In Lab Parviz Modi MD CHEMISTRY ORDERABLES Performing Organization Address City/[facility] Phon e Number [address] (ABNORMAL) Basic Metabolic Panel (non-fasting) (10/18/2021 4:55 AM EST) athologist Signature Glucose Lvl 197 65 - 199 [facility] mg/dL [facility] Comment: Diabetes: >=200 mg/dL plus symp toms BUN 15 10 - 20 mg/dL [facility] Creatinine 1.04 0.80 - 1.50 mg/dL [facility] Sodium 140 135 - 145 mmol/L [facility] Potassium 4.0 3.5 - 5.0 mmol/L [facility] Comment: Please note: ??Patients with WBC >100,00 0 may have falsely elevated Potassium levels. ??For accurate Potassium quantif ication in these patients send serum separator tube (gold top) for subsequent determinations. ??Contact the Clinical Chemistry Laboratory if there are any qu estions. Chloride 111 (H) 98 - 107 mmol/L [facility] CO2 19 (L) 22 - 31 mmol/L [facility] Anion Gap 10 5 - 15 mmol/L [facility] Calcium 8.6 8.5 - 10.5 mg/dL [facility] Estimated GFR 77 >=60 mL/min/1.73 m?? [facility] Comment: This patient? s estimated glomerular filtration rate (eGFR) is between 77 mL/min/1.73 m2 (patients with less muscl e mass per kg body weight) and 89 mL/min/1.73 m2 (patients with more muscl e [...] (Source) Location / / Volume Laterality Blood 10/18/2021 4:55 AM 5:06 EST AM EST Resulting Agency Comment Spec In Lab Parviz Modi MD CHEMISTRY ORDERABLES Performing Organization Address City/State/[place] [address] EKG 12 Lead (10/17/2021 11:23 AM EST) Component Value Ref Range Test Analysis Performed Pathologis t Method Time At Signature Ventricular rate 76 BPM MUSE SYSTEM Atrial Rate 76 BPM MUSE SYSTEM P-R Interval 148 ms MUSE SYSTEM QRS Duration 94 ms MUSE SYSTEM Q-T Interval 390 ms MUSE SYSTEM QTC Calculated 438 ms MUSE SYSTEM (Bezet) Calculated P Ramona 52 degrees MUSE SYSTEM Calculated R Ramona 22 degrees MUSE SYSTEM Calculated T Ramona 26 degrees MUSE SYSTEM INTERPRETATION Normal sinus rhythm MUSE SYSTEM Normal ECG When compared with ECG of 29-JUL-2021 08:28, No significant change was found Confirmed by MD KAVITA, KIRILL ([id number]) on 10/17/2021 6:44:22 PM Specimen Anatomical Collection Method Collection Time Receive d Time (Source) Location / / Volume Laterality 10/17/2021 11:23 10/17/2021 6:44 AM EST PM EST Luis Manuel Goodrich Jr., MD ECG ORDERABLES Performing Organization Address City/State/ZIP Code Phon e Number MUSE SYSTEM (ABNORMAL) BMP w/fasting Glucose (10/17/2021 10:50 AM EST) P athologist Signature Glucose 225 (H) 65 - 99 [facility] Fasting mg/dL [facility] Comment: ?Fasting* Glucose Interpretive C riteria Normal ?65-99 mg/dL Impaired Fasting glucose ?100-125 mg/dL Consistent with Diabetes Mellitus ? >or= 126 mg/dL *Fasting is defined as no caloric intake for at least 8 hours In the absence of unequivocal hypergly cemia a plasma glucose value of >or= 126 mg/dL should be repeated on a subseq uent day. Diagnosis and Classification of Diabetes Mellitus, Position Statement from the [place] [employer]. ??Diabete s Care, Volume 33, Supplement 1, Aug 2009 BUN 13 10 - 20 mg/dL [facility] Creatinine 0.98 0.80 - 1.50 mg/dL [facility] Sodium 140 135 - 145 mmol/L [facility] Potassium 4.5 3.5 - 5.0 mmol/L [facility] Comment: Please note: ??Patients with WBC >100,00 0 may have falsely elevated Potassium levels. ??For accurate Potassium quantif ication in these patients send serum separator tube (gold top) for subsequent determinations. ??Contact the Clinical Chemistry Laboratory if there are any qu estions. Chloride 112 (H) 98 - 107 mmol/L [facility] CO2 15 (L) 22 - 31 mmol/L [facility] Anion Gap 13 5 - 15 mmol/L [facility] Calcium 7.9 (L) 8.5 - 10.5 mg/dL [facility] K [facility] Estimated GFR 83 >=60 mL/min/1.73 m?? [facility] Comment: This patient? s estimated glomerular filtration rate (eGFR) is between 83 mL/min/1.73 m2 (patients with less muscl e mass per kg body weight) and 96 mL/min/1.73 m2 (patients with more muscl e [...] (Source) Location / / Volume Laterality Blood 10/17/2021 10:50 10/17/2021 AM EST 11:02 AM EST Resulting Agency Comment Spec In Lab Luis Manuel Goodrich Jr., MD CHEMISTRY ORDERABLES Performing Organization Address City/State/ZIP Code Phon e Number [place] [phone] (ABNORMAL) Hepatic Function Panel (10/17/2021 3:10 AM EST) Analysis Performed At Patho logist Time Signature Total Protein 6.4 6.1 - 8.0 [facility] g/dL [facility] Albumin 3.5 3.2 - 5.2 [facility] g/dL [facility] AST 30 0 - 39 [facility] unit/L [facility] ALT 32 0 - 55 [facility] unit/L [facility]ORY Alk Phos 87 40 - 130 [facility] unit/L [facility]ORY Total <0.2 (L) 0.2 - 1.3 [facility] Bilirubin mg/dL [facility]OR[facility] Bili, Direct <0.1 0.0 - 0.3 [facility] mg/dL [facility]ORATORY Specimen Anatomical Collection Method Collection Time Receive d Time (Source) Location / / Volume Laterality Blood 10/17/2021 3:10 AM 3:34 EST AM EST Resulting Agency Comment Spec In Lab Parviz Modi MD CHEMISTRY ORDERABLES Performing Organization Address City/[facility]/ZIP Code Phon e Number [address] (ABNORMAL) Phosphorus (10/17/2021 3:10 AM EST) P athologist Signature Phosphorus 1.9 (L) 2.5 - 4.5 [facility] mg/dL [facility] LABORATORY Specimen Anatomical Collection Method Collection Time Receive d Time (Source) Location / / Volume Laterality Blood 10/17/2021 3:10 AM 2 3:34 EST AM EST Resulting Agency Comment Spec In Lab Parviz Modi MD CHEMISTRY ORDERABLES Performing Organization Address City/[facility]/ZIP Code Phon e Number [address] Magnesium (10/17/2021 3:10 AM EST) athologist Signature Magnesium 0.82 0.69 - 1.07 [facility] mmol/L [facility] LABORATORY Specimen Anatomical Collection Method Collection Time Receive d Time (Source) Location / / Volume Laterality Blood 10/17/2021 3:10 AM 2 3:34 EST AM EST Resulting Agency Comment Spec In Lab Parviz Modi MD CHEMISTRY ORDERABLES Performing Organization Address City/[facility]/ZIP [facility] [place] [address] (ABNORMAL) Basic Metabolic Panel (non-fasting) (10/17/2021 3:10 AM EST) P athologist Signature Glucose Lvl 376 (H) 65 - 199 [facility] mg/dL [facility] Comment: result rechecked-EG Diabetes: >=200 mg/dL plus symptoms BUN 15 10 - 20 mg/dL [facility] Creatinine 1.13 0.80 - 1.50 mg/dL [facility] Sodium 140 135 - 145 mmol/L [facility] Potassium 4.2 3.5 - 5.0 mmol/L [facility] Comment: Please note: ??Patients with WBC >100,00 0 may have falsely elevated Potassium levels. ??For accurate Potassium quantif ication in these patients send serum separator tube (gold top) for subsequent determinations. ??Contact the Clinical Chemistry Laboratory if there are any qu estions. Chloride 112 (H) 98 - 107 mmol/L [facility] CO2 15 (L) 22 - 31 mmol/L [facility] Anion Gap 13 5 - 15 mmol/L [facility] Calcium 8.5 8.5 - 10.5 mg/dL [facility] Estimated GFR 70 >=60 mL/min/1.73 m?? [facility] Comment: This patient? s estimated glomerular filtration rate (eGFR) is between 70 mL/min/1.73 m2 (patients with less muscl e mass per kg body weight) and 81 mL/min/1.73 m2 (patients with more muscl e [...] (Source) Location / / Volume Laterality Blood 10/17/2021 3:10 AM 2 3:34 EST AM EST Resulting Agency Comment Spec In Lab Parviz Modi MD CHEMISTRY ORDERABLES Performing Organization Address City/State/ZIP Code Phon e Number [place] [phone] (ABNORMAL) Differential, Automated (10/16/2021 3:45 AM EST) P athologist Signature Neutrophils % 56.1 % [facility] Neutr Abs (ANC) 1.94 1.70 - [facility] 6.10 [facility] x10(3)/[facility] LABORATORY Lymphocytes % 25.1 % [facility] Lymphocytes Abs 0.9 0.9 - 3.2 [facility] x10(3)/[facility] LABORATORY Monocytes % 16.8 % [facility] Monocyte Abs 0.6 0.3 - 0.9 [facility] x10(3)/[facility] LABORATORY Eosinophils % 0.3 % [facility] Eosinophils Abs 0.0 0.0 - 0.4 [facility] x10(3)/[facility] LABORATORY Basophils % 0.3 % [facility] Basophils Abs 0.0 0.0 - 0.1 [facility] x10(3)/[facility] LABORATORY Immature Gran % 1.40 % [facility] Comment: Immature granulocytes(IG's)percentage an d absolute count will include metamyelocytes, myelocytes, and promyelo cytes. Blood smears from CBCs yielding IG's will be scanned manually for concor dance. If this scan disagrees with the automated IG or if promyelocytes are not ed, a manual differential will be performed. Zara Gran Abs 0.05 (H) 0.00 - 0.04 x10(3)/[facility] LABORATORY Specimen Anatomical Collection Method Collection Time Receive d Time (Source) Location / / Volume Laterality Blood 10/16/2021 3:45 AM 3:47 EST AM EST Resulting Agency Comment Spec In Lab Parviz Modi MD HEMATOLOGY ORDERABLES Performing Organization Address City/State/[place] [address] (ABNORMAL) Hemogram (10/16/2021 3:45 AM EST) [facility] gist Method Time Signature WBC 3.5 (L) 4.0 - 9.5 [facility] x10(3)/[facility] LABORATORY RBC 2.40 (L) 4.58 - [facility] 5.54 [facility] x10(6)/[facility] LABORATORY Hemoglobin 8.4 (L) 13.7 - [facility] 16.5 g/dL [facility] LABORATORY Hematocrit 25.4 (L) 40.5 - [facility] 48.5 % [facility] LABORATORY MCV 105.8 (H) 82.9 - [facility] 93.1 [facility] LABORATORY MCH 35.0 (H) 27.5 - [facility] 32.1 pg [facility] LABORATORY MCHC 33.1 32.0 - [facility] 35.7 g/dL [facility]ORATORY Platelets 106 (L) 145 - 357 [facility] x10(3)/[facility] LABORATORY RDWSD 80.2 (H) 36.0 - [facility] [place] 45.0 [facility] LABORATORY RDWCV 21.3 (H) 11.4 - [facility] 13.8 % [facility] LABORATORY MPV 10.6 7.6 - 12.9 [facility] LABORATORY nRBC % Auto 0.0 % [facility] nRBC Abs Auto 0.000 0.000 - [facility] [place] 0.000 [facility] x10(3)/[facility] LABORATORY Specimen Anatomical Collection Method Collection Time Receive d Time (Source) Location / / Volume Laterality Blood 10/16/2021 3:45 AM 3:47 EST AM EST Resulting Agency Comment Spec In Lab Parviz Modi MD HEMATOLOGY ORDERABLES Performing Organization Address City/State/[place] [address] Hepatic Function Panel (10/16/2021 3:45 AM EST) P athologist Signature Total Protein 6.6 6.1 - 8.0 [facility] g/dL [facility] Albumin 3.6 3.2 - 5.2 [facility] g/dL [facility] AST 28 0 - 39 [facility] unit/L [facility] ALT 31 0 - 55 [facility] unit/L [facility]ORY Alk Phos 94 40 - 130 [facility] unit/L [facility]ORY Total 0.2 0.2 - 1.3 [facility] Bilirubin mg/dL [facility]OR[facility]ORY Bili, Direct 0.1 0.0 - 0.3 [facility] mg/dL [facility] LABORATORY Specimen Anatomical Collection Method Collection Time Receive d Time (Source) Location / / Volume Laterality Blood 10/16/2021 3:45 AM 2 3:47 EST AM EST Resulting Agency Comment Spec In Lab Parviz Modi MD CHEMISTRY ORDERABLES Performing Organization Address City/[facility]/ZIP Code Phon e Number [address] Phosphorus (10/16/2021 3:45 AM EST) P athologist Signature Phosphorus 4.5 2.5 - 4.5 [facility]ORATORY Specimen Anatomical Collection Method Collection Time Receive d Time (Source) Location / / Volume Laterality Blood 10/16/2021 3:45 AM 2 3:47 EST AM EST Resulting Agency Comment Spec In Lab Parviz Modi MD CHEMISTRY ORDERABLES Performing Organization Address City/[facility]/ZIP Code Phon e Number [address] (ABNORMAL) Magnesium (10/16/2021 3:45 AM EST) athologist Signature Magnesium 0.67 (L) 0.69 - 1.07 [facility] mmol/L [facility] LABORATORY Specimen Anatomical Collection Method Collection Time Receive d Time (Source) Location / / Volume Laterality Blood 10/16/2021 3:45 AM 2 3:47 EST AM EST Resulting Agency Comment Spec In Lab Parviz Modi MD CHEMISTRY ORDERABLES Performing Organization Address City/[facility]/ZIP [facility] [place] [address] (ABNORMAL) Basic Metabolic Panel (non-fasting) (10/16/2021 3:45 AM EST) P athologist Signature Glucose Lvl 102 65 - 199 [facility] mg/dL [facility]ORY Comment: Diabetes: >=200 mg/dL plus symp toms BUN 21 (H) 10 - 20 mg/dL [facility] Creatinine 1.11 0.80 - 1.50 mg/dL [facility] Sodium 139 135 - 145 mmol/L [facility] Potassium 4.1 3.5 - 5.0 mmol/L [facility] Comment: Please note: ??Patients with WBC >100,00 0 may have falsely elevated Potassium levels. ??For accurate Potassium quantif ication in these patients send serum separator tube (gold top) for subsequent determinations. ??Contact the Clinical Chemistry Laboratory if there are any qu estions. Chloride 107 98 - 107 mmol/L [facility] CO2 21 (L) 22 - 31 mmol/L [facility] Anion Gap 11 5 - 15 mmol/L [facility] Calcium 9.1 8.5 - 10.5 mg/dL [facility] Estimated GFR 71 >=60 mL/min/1.73 m?? [facility] Comment: This patient? s estimated glomerular filtration rate (eGFR) is between 71 mL/min/1.73 m2 (patients with less muscl e mass per kg body weight) and 83 mL/min/1.73 m2 (patients with more muscl e [...] (Source) Location / / Volume Laterality Blood 10/16/2021 3:45 AM 3:47 EST AM EST Resulting Agency Comment Spec In Lab Parviz Modi MD CHEMISTRY ORDERABLES Performing Organization Address City/State/[place] [address] COVID-19 PCR (10/15/2021 8:33 PM EST) [facility] Method Time Signature SARS-CoV-2 Not Detected Not Detected JIA RNA PCR [facility] Comment: This result should be interpreted [...] using the Simplexa COVID-19 Direct Assay by You[employer]QBcirilo herzog as authorized by the FDA issued [...] Department of Pathology and Laboratory Medicine at [facility], certified under the Clinical Laboratory Improvement [...] fact sheets at the following FDA website: https://www.fda.gov/medical-devices/mvpofhhihtk-licfaoe-7032-uyxqe-84-dgetawldj- mhi-qpostikzrohisl-dtxjiwe-devices/eifsp-xamwpqjlzlb-yebv SARS-CoV-2 Source ULTRASOUND SPEC Swab [facility] LAB[facility] Specimen (Source) Anatomical Collection Method Collection Time Re ceived Time Location / / Volume Laterality Nasopharyngeal Swab 10/15/2021 8:33 10/15 PM EST 9:19 PM EST Comment: Symptoms->Surveillance Resulting Agency Comment Spec In Lab Luis Manuel Goodrich Jr., MD MICROBIOLOGY - GENERAL ORDER BRINA Performing Organization Address City/State/[place] [address] NMDP Donor Sample Testing (10/15/2021 6:32 PM EST) Component Value Ref Test Analysis Performed At [facility] Range Method Time Signature NMDP Donor NMDP Unrelated Allogeneic Donor Sample Testing [facility] Select one of the following: [facility] Pre-collection sample (sample collected prior to HPC nicholas ection) LABORATORY X Day of collection sample (sample collected day of HPC nicholas ection) GRID Number: [id number] NMDP Recipient Identification Number: ??[id number] ABORh Testing: Anti-A= ? 0 Anti-B = ?0 Anti-D ??= ?? 0 D control = 0 A1 cells = 4 B cells = ??4 Perform weak D testing if Rh neg Weak D = 0 Weak D control = 0 Weak D CC = 3 Weak D Control CC = 3 ABORh Interpretation: O Negative RBC Antibody Screen Testing: Cell 1, IS = ??0 Cell 2, IS = ?0 Cell 3, IS = ? 0 Cell 1, 37C = ??0 Cell 2, 37C = ??0 Cell 3, 37C = ??0 Cell 1, AHG = 0 Cell 2, AHG = 0 Cell 3, AHG = 0 Cell 1, CC = ?3 Cell 2, CC = ?3 Cell 3, CC = ?3 RBC Antibody Screen Interpretation = Negative Testing performed on: 10/15/2021 ??by Beto Álvarez ASCP( ) Comments: Specimen Anatomical Collection Method Collection Time Receive d Time (Source) Location / / Volume Laterality Blood No Charge / 10/15/2021 6:32 PM 6:32 Unknown EST PM EST Resulting Agency Comment Spec In Lab Mee Lyman MD BLOOD BANK ORDERABLES Performing Organization Address City/State/[place] [address] documented in this encounter Visit Diagnoses Diagnosis Paroxysmal atrial fibrillation Atrial fibrillation Acute myeloid leukemia in remission Bacteremia Cerebrovascular accident (CVA), unspecif ied mechanism Acute myeloid leukemia not having achiev ed remission documented in this encounter Administered Medications Inactive Administered Medications - up to 3 most recent administrations Medication Order MAR Action Action Date Dose Rate Site acetaminophen (Ofirmev) (1000 Given 11/03/2021 12:30 AM 1,000 mg 400 mL/hr mg/100 mL) infusion 1,000 mg EDT 1,000 mg, Intravenous, at 400 mL/hr, ONCE, 1 dose, On 11/03/21 at 0030, Maximum dose of acetaminophen is 4000 mg from all sources in 24 hours. When ordered for pain, acetaminophen should be given even when other ordered pain medications are indicated. , Routine acetaminophen (Ofirmev) (1000 Given 11/03/2021 6:44 AM EDT 1,000 mg 400 mL/hr mg/100 mL) infusion 1,000 mg 1,000 mg, Intravenous, at 400 mL/hr, ONCE, 1 dose, On 11/03/21 at 0730, Maximum dose of acetaminophen is 4000 mg from all sources in 24 hours. When ordered for pain, acetaminophen should be given even when other ordered pain medications are indicated. , STAT acetaminophen (Ofirmev) (1000 Given 11/03/2021 5:07 PM EDT 1,000 mg 400 mL/hr mg/100 mL) infusion 1,000 mg 1,000 mg, Intravenous, at 400 mL/hr, ONCE, 1 dose, On 11/03/21 at 1630, Maximum dose of acetaminophen is 4000 mg from all sources in 24 hours. When ordered for pain, acetaminophen should be given even when other ordered pain medications are indicated. , Routine acetaminophen (Ofirmev) (1000 Given 11/04/2021 4:50 AM EDT 1,000 mg 400 mL/hr mg/100 mL) infusion 1,000 mg 1,000 mg, Intravenous, at 400 mL/hr, ONCE, 1 dose, On 11/04/21 at 0530, Maximum dose of acetaminophen is 4000 mg from all sources in 24 hours. When ordered for pain, acetaminophen should be given even when other ordered pain medications are indicated. , STAT acetaminophen (Ofirmev) (1000 Given 11/09/2021 4:17 AM EDT 1,000 mg 400 mL/hr mg/100 mL) infusion 1,000 mg 1,000 mg, Intravenous, at 400 mL/hr, ONCE, 1 dose, On 11/09/21 at 0500, Maximum dose of acetaminophen is 4000 mg from all sources in 24 hours. When ordered for pain, acetaminophen should be given even when other ordered pain medications are indicated. , Routine acetaminophen (Ofirmev) (1000 Given 11/09/2021 5:58 PM EDT 1,000 mg 400 mL/hr mg/100 mL) infusion 1,000 mg 1,000 mg, Intravenous, at 400 mL/hr, ONCE, 1 dose, On 11/09/21 at 1800, Maximum dose of acetaminophen is 4000 mg from all sources in 24 hours. When ordered for pain, acetaminophen should be given even when other ordered pain medications are indicated. , Routine acetaminophen (Tylenol) (32.02 mg/mL) oral Given 11/02/2021 9:34 AM EDT 975 mg liquid 975 mg 975 mg, Oral, EVERY 8 HOURS PRN, Starting on Kassy 10/31/21 at 0355, Until 11/18/21 at 1628, Pain, Maximum dose of acetaminophen is 4000 mg from all sources in 24 hours. When ordered for pain, acetaminophen should be given even when other ordered pain medications are indicated. , Routine Given 10/31/2021 4:06 AM EDT 975 mg acetaminophen (Tylenol) tablet 325 mg Given 10/19/2021 7:37 PM EST 325 mg 325 mg, Oral, ONCE PRN, 1 dose, Starting on 10/19/21 at 1920, Until 10/19/21 at 1937, Pain, Fever, Maximum dose of acetaminophen is 4000 mg from all sources in 24 hours. When ordered for pain, acetaminophen should be given even when other ordered pain medications are indicated. , Routine acetaminophen (Tylenol) tablet 650 mg Given 10/16/2021 8:58 PM EST 650 mg 650 mg, Oral, EVERY 5 HOURS, 2 doses, First dose on Thu10/16/21 at 1400, Last dose on Thu10/16/21 at 2000, Day (-6): Administer at initiation and again midway through the administration of each dose of rabbit anti-thymocyte globulin., Routine Given 10/16/2021 3:21 PM EST 650 mg acetaminophen (Tylenol) tablet 650 mg Given 10/17/2021 7:49 PM EST 650 mg 650 mg, Oral, EVERY 5 HOURS, 2 doses, First dose on Thu10/17/21 at 1400, Last dose on Thu10/17/21 at 1950, Day (-5): Administer at initiation and again midway through the administration of each dose of rabbit anti-thymocyte globulin., Routine Given 10/17/2021 2:45 PM EST 650 mg acetaminophen (Tylenol) tablet 650 mg Given 10/18/2021 7:25 PM EST 650 mg 650 mg, Oral, EVERY 5 HOURS, 2 doses, First dose on Thu10/18/21 at 1400, Last dose on Thu10/18/21 at 1900, Day (-4): Administer at initiation and again midway through the administration of each dose of rabbit anti-thymocyte globulin., Routine Given 10/18/2021 2:13 PM EST 650 mg acetaminophen (Tylenol) tablet 650 mg Given 10/19/2021 1:26 PM EST 650 mg 650 mg, Oral, ONCE, 1 dose, On Thu10/19/21 at 1345, Maximum dose of acetaminophen is 4000 mg from all sources in 24 hours. When ordered for pain, acetaminophen should be given even when other ordered pain medications are indicated. , Routine acetaminophen (Tylenol) tablet 650 mg Given 10/22/2021 9:31 AM EST 650 mg 650 mg, Oral, ONCE, 1 dose, On Thu10/22/21 at 0930, Administer 30 minutes prior to stem cell administration on Day (0)., Routine acyclovir (Zovirax) 472.5 mg in New Bag 11/13/2021 5:10 AM EDT 472.5 mg 259.5 mL/hr sodium chloride 0.9% 259.45 mL infusion 472.5 mg (250 mg/m2/dose ? 1.89 m2 Anton BSA), Intravenous, EVERY 12 HOURS, First dose on Thu10/31/21 at 1415, Until Discontinued, Administer over 60 Minutes, Indication for (Active or Suspected): Prophylaxis New Bag 11/12/2021 4:05 PM EDT 472.5 mg 259.5 mL/hr New Bag 11/12/2021 5:27 AM EDT 472.5 mg 259.5 mL/hr acyclovir (Zovirax) tablet 800 mg Given 10/31/2021 8:55 AM EDT 800 mg 800 mg, Oral, 2 TIMES DAILY, First dose on Thu10/15/21 at 2100, Until Discontinued, Beginning on day (-7). May give acyclovir 250 mg / m2 / dose IV every 12 hours if unable to take PO. Consider using ideal body weight for intravenous dosing when dosing obese patients (per Clinical Pharmacology). Anton body weight IBW (male) in kg = 50 + 2.3 kg per inch over 5 feet. IBW (female) in kg = 45.5 + 2.3 kg per inch over 5 feet., Routine Given 10/30/2021 8:14 PM EDT 800 mg Given 10/30/2021 9:00 AM EDT 800 mg acyclovir (Zovirax) tablet 800 mg Given 11/18/2021 8:15 AM EDT 800 mg 800 mg, Oral, 2 TIMES DAILY, First dose on Thu11/13/21 at 2100, Until Discontinued, Routine Given 11/17/2021 8:50 PM EDT 800 mg Given 11/17/2021 9:00 AM EDT 800 mg alteplase (Cathflo) injection 2 mg Given 11/10/2021 12:30 PM EDT 2 mg 2 mg, Intravenous, ONCE, 1 dose, On Thu11/10/21 at 1300, Instill into occluded lumen as directed., Routine alum-mag hydroxide-simeth (Maalox) (40 mg-40 Given 4:28 PM EDT 10 mLs mg-4 mg/mL) oral liquid 10 mL 10 mL, Oral, 3 TIMES DAILY PRN, Starting on Thu10/28/21 at 1012, Until Thu11/18/21 at 1628, Heartburn, Routine Given 10/29/2021 8:49 AM EDT 10 mLs Given 10/28/2021 1:39 PM EDT 10 mLs amino acid 4.25% in dextrose 5% with New Bag 11/01/2021 7:37 AM ED T 63 mL/hr electrolytes (Peripheral TPN) (Clinimix E 4.25/5) infusion Intravenous, at 63 mL/hr, CONTINUOUS, Starting on Thu10/31/21 at 1800, Until Thu11/01/21 at 1759, Peripheral TPN with Electrolytes. For 2-in-1 TPN (no lipid): Attach 0.2 micron filter set to primary set prior to infusion. For 2-in-1 TPNs with Y-sited lipids: Attach 1.2 micron filter set below Y-site. For 3-in-1 TPN (Lipid in TPN bag): Attach 1.2 micron filter set to primary set prior to infusion. Warning Vesicant/Irritant Medication New Bag 10/31/2021 5:38 PM EDT 63 mL/hr anti-thymocyte glob (rabbit) New Bag 10/16/2021 3:54 PM 124.8 mg 27.5 mL/hr (THYMOGLOBULIN) 124.8 mg in sodium EST chloride 0.9% 274.96 mL 124.8 mg (1.5 mg/kg/dose ? 83.2 kg Treatment plan adjusted weight), Intravenous, ONCE, 1 dose, On Thu10/16/21 at 1400, Administer over 10 Hours, To be administered once on day (-6). Doses for chemotherapy/supportive care are based on CALGB 015852 and [facility]'s SOP (Chemotherapy Dosing Based on Adjusted or Anton Body Weight which uses the Fransisca method for ideal body weight): 1) Rabbit anti-thymocyte globulin dose will be based on an adjusted body weight (ABW) as follows: a) IBW (male) in kg = 50 + 2.3 kg per inch over 5 feet or b) IBW (female) in kg = 45.5 + 2.3 kg per inch over 5 feet. c) ABW in kg = [0.25 x (actual body weight - IBW)] + IBW. 2) If the actual body weight is greater than 150% of IBW, the patient's actual body weight will be capped at 150% of IBW (i.e., their ABW will be 112.5% of IBW). 3) For patients whose actual body weight is less than their IBW, use actual body weight. anti-thymocyte glob (rabbit) New Bag 10/17/2021 2:49 PM 166.4 mg 53.3 mL/hr (THYMOGLOBULIN) 166.4 mg in sodium EST chloride 0.9% 533.28 mL 166.4 mg (2 mg/kg/dose ? 83.2 kg Treatment plan adjusted weight), Intravenous, ONCE, 1 dose, On Thu10/17/21 at 1400, Administer over 10 Hours, To be administered once on day (-5). Doses for chemotherapy/supportive care are based on CALGB 732188 and [facility]'s SOP (Chemotherapy Dosing Based on Adjusted or Anton Body Weight which uses the Turtlepoint method for ideal body weight): 1) Rabbit anti-thymocyte globulin dose will be based on an adjusted body weight (ABW) as follows: a) IBW (male) in kg = 50 + 2.3 kg per inch over 5 feet or b) IBW (female) in kg = 45.5 + 2.3 kg per inch over 5 feet. c) ABW in kg = [0.25 x (actual body weight - IBW)] + IBW. 2) If the actual body weight is greater than 150% of IBW, the patient's actual body weight will be capped at 150% of IBW (i.e., their ABW will be 112.5% of IBW). 3) For patients whose actual body weight is less than their IBW, use actual body weight. anti-thymocyte glob (rabbit) New Bag 10/18/2021 2:34 PM EST 208 mg 54.2 mL/hr (THYMOGLOBULIN) 208 mg in sodium chloride 0.9% 541.6 mL 208 mg (2.5 mg/kg/dose ? 83.2 kg Treatment plan adjusted weight), Intravenous, ONCE, 1 dose, On Thu10/18/21 at 1400, Administer over 10 Hours, To be administered once on day (-4). Doses for chemotherapy/supportive care are based on CALGB 473219 and [facility]'s SOP (Chemotherapy Dosing Based on Adjusted or Anton Body Weight which uses the Fransisca method for ideal body weight): 1) Rabbit anti-thymocyte globulin dose will be based on an adjusted body weight (ABW) as follows: a) IBW (male) in kg = 50 + 2.3 kg per inch over 5 feet or b) IBW (female) in kg = 45.5 + 2.3 kg per inch over 5 feet. c) ABW in kg = [0.25 x (actual body weight - IBW)] + IBW. 2) If the actual body weight is greater than 150% of IBW, the patient's actual body weight will be capped at 150% of IBW (i.e., their ABW will be 112.5% of IBW). 3) For patients whose actual body weight is less than their IBW, use actual body weight. aprepitant (CINVANTI) injection Emul 130 mg Given 10/16/2021 9:39 AM EST 130 mg 130 mg, Intravenous, ONCE, 1 dose, On Thu10/16/21 at 0900, Alternative administration of IV push over 2 minutes is a recommendation from the underwriting assistant. Administer once prior to the first dose of busulfan on day (-6)., Routine busulfan (Busuflex) 204 mg in sodium Restarted 10/16/2021 12:09 PM EST 71 mL/hr chloride 0.9% 284 mL infusion 204 mg (100 mg/m2/dose ? 2.04 m2 Treatment plan adjusted BSA), Intravenous, EVERY 24 HOURS, 4 doses, First dose on Thu10/16/21 at 1000, Last dose on Thu10/19/21 at 1000, Administer over 4 Hours, REQUIRED to give busulfan via central line in designated lumen. Administer every 24 hours on days (-6) through (-3). HOLD busulfan pending RN confirmation of oral phenytoin loading dose of 1,000 mg on day (-7) and one maintenance dose of 300 mg on day (-6). Doses for chemotherapy/supportive care are based on CALGB 904112 and [facility]'s SOP (Chemotherapy Dosing Based on Adjusted or Anton Body Weight which uses the Fransisca method for ideal body weight): 1) Busulfan dose will be based on an adjusted body weight (ABW) as follows: a) IBW (male) in kg = 50 + 2.3 kg per inch over 5 feet or b) IBW (female) in kg = 45.5 + 2.3 kg per inch over 5 feet. c) ABW in kg = [0.25 x (actual body weight - IBW)] + IBW. 2) If the actual body weight is greater than 150% of IBW, the patient's actual body weight will be capped at 150% of IBW (i.e., their ABW will be 112.5% of IBW). New Bag 10/16/2021 10:28 AM EST 204 mg 71 mL/hr busulfan (Busuflex) 204 mg in sodium New Bag 10/19/2021 10:39 AM 204 mg 102 mL/hr chloride 0.9% 408 mL infusion EST 204 mg, Intravenous, EVERY 24 HOURS, 3 doses, First dose (after last reorder) on Kassy 10/17/21 at 1000, Last dose on 10/19/21 at 1000, Administer over 4 Hours, REQUIRED to give busulfan via central line in designated lumen. Administer every 24 hours on days (-6) through (-3). HOLD busulfan pending RN confirmation of oral phenytoin loading dose of 1,000 mg on day (-7) and one maintenance dose of 300 mg on day (-6). Doses for chemotherapy/supportive care are based on CALGB 873206 and [facility]'s SOP (Chemotherapy Dosing Based on Adjusted or Anton Body Weight which uses the Fransisca method for ideal body weight): 1) Busulfan dose will be based on an adjusted body weight (ABW) as follows: a) IBW (male) in kg = 50 + 2.3 kg per inch over 5 feet or b) IBW (female) in kg = 45.5 + 2.3 kg per inch over 5 feet. c) ABW in kg = [0.25 x (actual body weight - IBW)] + IBW. 2) If the actual body weight is greater than 150% of IBW, the patient's actual body weight will be capped at 150% of IBW (i.e., their ABW will be 112.5% of IBW). New Bag 10/18/2021 10:04 AM EST 204 mg 102 mL/hr New Bag 10/17/2021 10:38 AM EST 204 mg 102 mL/hr calcium carbonate (Tums) chewable tablet 500 Given 1:49 PM EDT 500 mg mg 500 mg, Oral, 3 TIMES DAILY PRN, Starting on 10/26/21 at 1252, Until 10/27/21 at 1438, Heartburn, Routine Given 10/27/2021 10:58 AM EDT 500 mg Given 10/26/2021 10:12 PM EST 500 mg calcium carbonate (Tums) chewable tablet 500 Given 3:21 PM EDT 500 mg mg 500 mg, Oral, 4 TIMES DAILY PRN, Starting on Thu10/27/21 at 1445, Until 11/18/21 at 1628, Heartburn, Routine Given 10/28/2021 9:09 PM EDT 500 mg camphor-menthoL (Sarna) lotion Topical (Top), 3 TIMES DAILY PRN, Itchin g, Starting on Thu10/30/21 at 0418, Until 11/18/21 at 1628 ceFEPime (Maxipime) 2g vial attach to New Bag 10/30/2021 4:17 AM EDT 2 g 200 mL/hr sodium chloride 0.9% 100 mL Mini-Bag Plus 2 g 2 g, Intravenous, EVERY 8 HOURS, First dose on 10/19/21 at 1330, Until Discontinued, Administer over 30 Minutes, Indication for (Active or Suspected): Neutropenic Fever New Bag 10/29/2021 9:35 PM EDT 2 g 200 mL/hr New Bag 10/29/2021 1:50 PM EDT 2 g 200 mL/hr ceFEPime (Maxipime) 2g vial attach to New Bag 10/31/2021 3:59 AM EDT 2 g 200 mL/hr sodium chloride 0.9% 100 mL Mini-Bag Plus 2 g 2 g, Intravenous, EVERY 12 HOURS, First dose (after last modification) on Thu10/30/21 at 1630, Until Discontinued, Administer over 30 Minutes, Renally dose adjusted per P&T protocol., Indication for (Active or Suspected): Neutropenic Fever New Bag 10/30/2021 4:20 PM EDT 2 g 200 mL/hr ceFEPime (Maxipime) 2g vial attach to New Bag 11/02/2021 3:50 AM EDT 2 g 200 mL/hr sodium chloride 0.9% 100 mL Mini-Bag Plus 2 g 2 g, Intravenous, EVERY 8 HOURS, First dose (after last modification) on Kassy 10/31/21 at 1200, Until Discontinued, Administer over 30 Minutes, Renally dose adjusted per P&T protocol., Indication for (Active or Suspected): Neutropenic Fever New Bag 11/01/2021 7:52 PM EDT 2 g 200 mL/hr New Bag 11/01/2021 11:54 AM EDT 2 g 200 mL/hr ceFEPime (Maxipime) 2g vial attach to New Bag 11/10/2021 5:05 AM EDT 2 g 200 mL/hr sodium chloride 0.9% 100 mL Mini-Bag Plus 2 g 2 g, Intravenous, EVERY 8 HOURS, First dose on Thu11/03/21 at 1715, Until Discontinued, Administer over 30 Minutes, Indication for (Active or Suspected): Bacteremia/Sepsis New Bag 11/09/2021 9:58 PM EDT 2 g 200 mL/hr New Bag 11/09/2021 2:08 PM EDT 2 g 200 mL/hr DAPTOmycin (Cubicin) 845 mg in New Bag 11/17/2021 3:56 AM EDT 845 mg 133.8 mL/hr sodium chloride 0.9% 66.9 mL 845 mg (rounded from 846 mg = 10 mg/kg/dose ? 84.6 kg Adjusted weight), Intravenous, EVERY 24 HOURS, 15 doses, First dose (after last modification) on Thu11/03/21 at 0400, Last dose on Thu11/17/21 at 0400, Administer over 30 Minutes, Indication for (Active or Suspected): Bacteremia/Sepsis, Restricted Antibiotic: Please indicate the most appropriate choice: Off hour exemption for 2 doses (11PM - 7AM) New Bag 11/16/2021 3:30 AM EDT 845 mg 133.8 mL/hr New Bag 11/15/2021 3:49 AM EDT 845 mg 133.8 mL/hr diphenhydrAMINE (Benadryl) (50 mg/mL) Given 10/16/2021 8:[address] 50 mg injection 50 mg 50 mg, Intravenous, EVERY 5 HOURS, 2 doses, First dose on Thu10/16/21 at 1400, Last dose on Thu10/16/21 at 2000, Day (-6): Administer at initiation and again midway through the administration of each dose of rabbit anti-thymocyte globulin., Routine Given 10/16/2021 3:20 PM EST 50 mg diphenhydrAMINE (Benadryl) (50 mg/mL) Given 10/17/2021 7:[address] 50 mg injection 50 mg 50 mg, Intravenous, EVERY 5 HOURS, 2 doses, First dose on Thu10/17/21 at 1400, Last dose on Thu10/17/21 at 1950, Day (-5): Administer at initiation and again midway through the administration of each dose of rabbit anti-thymocyte globulin., Routine Given 10/17/2021 2:45 PM EST 50 mg diphenhydrAMINE (Benadryl) (50 mg/mL) Given 10/18/2021 7:[address] 50 mg injection 50 mg 50 mg, Intravenous, EVERY 5 HOURS, 2 doses, First dose on Thu10/18/21 at 1400, Last dose on Thu10/18/21 at 1900, Day (-4): Administer at initiation and again midway through the administration of each dose of rabbit anti-thymocyte globulin., Routine Given 10/18/2021 2:13 PM EST 50 mg diphenhydrAMINE (Benadryl) capsule 50 mg Given 10/22/2021 9:31 AM EST 50 mg 50 mg, Oral, ONCE, 1 dose, On Thu10/22/21 at 0930, Administer 30 minutes prior to stem cell administration on Day (0)., Routine diphenhydrAMINE/aluminum-magnesium hydroxide Given 5:24 PM EDT 5 mLs with simethicone/lidocaine (BMX) (6.67 mg-0.83 mg-13.33 mg-1.33 mg/mL) oral liquid 5 mL 5 mL, Oral, 4 TIMES DAILY BEFORE MEALS & NIGHTLY, First dose on Thu10/30/21 at 1745, Until Discontinued, Each 5 mL contains equal parts of diphenhydramine (BENADYL), aluminum-magnesium hydroxide w/ simethicone (MAALOX), and lidocaine (XYLOCAINE) , Routine Given 11/10/2021 2:15 PM EDT 5 mLs Given 11/09/2021 10:07 PM EDT 5 mLs diphenhydrAMINE/aluminum-magnesium hydroxide Given 9:43 PM EDT 5 mLs with simethicone/lidocaine (BMX) (6.67 mg-0.83 mg-13.33 mg-1.33 mg/mL) oral liquid 5 mL 5 mL, Oral, 4 TIMES DAILY PRN, Starting on Thu11/11/21 at 0930, Until Thu11/18/21 at 1628, For mucositis pain, Each 5 mL contains equal parts of diphenhydramine (BENADYL), aluminum-magnesium hydroxide w/ simethicone (MAALOX), and lidocaine (XYLOCAINE) , Routine enoxaparin (Lovenox) (100 mg/1 mL) Given 10/23/2021 9:11 AM EST 100 mg subcutaneous injection 100 mg 100 mg, Subcutaneous, DAILY, First dose on Thu10/15/21 at 1800, Until Discontinued, Once plt <40, switch to VOD ppx dose of 40mg qd., Routine Given 10/22/2021 9:31 AM EST 100 mg Given 10/21/2021 9:54 AM EST 100 mg enoxaparin (Lovenox) (40 mg/0.4 mL) Given 10/24/2021 8:08 PM EST 40 mg subcutaneous injection 40 mg 40 mg, Subcutaneous, NIGHTLY, First dose on Thu10/24/21 at 2100, Until Discontinued, Routine enoxaparin (Lovenox) (40 mg/0.4 mL) Given 10/31/2021 9:47 AM EDT 40 mg subcutaneous injection 40 mg 40 mg, Subcutaneous, EVERY 24 HOURS SCHEDULED (Daily), First dose (after last modification) on Thu10/25/21 at 1030, Until Discontinued, Maintain platelet count greater than or equal to 10x10^3 / mcl., Routine Given 10/30/2021 11:36 AM EDT 40 mg Given 10/29/2021 8:28 AM EDT 40 mg enoxaparin (Lovenox) (40 mg/0.4 mL) Given 11/07/2021 8:46 PM EDT 40 mg subcutaneous injection 40 mg 40 mg, Subcutaneous, NIGHTLY, First dose (after last reorder) on Kassy 11/07/21 at 2100, Until Discontinued, Hold for platelets <10., Routine enoxaparin (Lovenox) (40 mg/0.4 mL) Given 11/17/2021 8:49 PM EDT 40 mg subcutaneous injection 40 mg 40 mg, Subcutaneous, NIGHTLY, First dose on Thu11/15/21 at 2100, Until Discontinued, Routine Given 11/16/2021 8:27 PM EDT 40 mg Abdom inal Tissue Given 11/15/2021 8:43 PM EDT 40 mg Abdom inal Tissue famotidine (Pepcid) tablet 20 mg Given 10/31/2021 8:55 AM EDT 20 mg 20 mg, Oral, DAILY, First dose on Thu10/29/21 at 1015, Until Discontinued, Routine Given 10/30/2021 9:11 AM EDT 20 mg Given 10/29/2021 11:52 AM EDT 20 mg filgrastim-sndz (Zarxio) (300 mcg/0.5 mL) Given 11/11/2021 9:03 AM EDT 600 mcg injection 600 mcg 600 mcg, Subcutaneous, DAILY, First dose on Thu10/29/21 at 0900, Until Discontinued, 5 mcg/kg subcutaneously once daily beginning on day (+7) and until ANC greater than 1,500 mm^3 x 2 days or ANC greater than 5,000 mm^3 once post engraftment. Round dose based on actual weight: 1) For patient less than 60 kg give 300 mcg subcutaneously once daily. 2) For patient weight 60 - 99 kg give 480 mcg subcutaneously once daily. 3) For patient weight 100 - 130 kg give 600 mcg subcutaneously once daily. 4) For patient weight greater than 130 kg give 780 mcg subcutaneously once daily, Routine Given 11/10/2021 11:50 AM EDT 600 mcg Given 11/09/2021 9:15 AM EDT 600 mcg flecainide (Tambocor) tablet 50 mg Given 11/18/2021 8:10 AM EDT 50 mg 50 mg, Oral, 2 TIMES DAILY, First dose on Thu10/15/21 at 2100, Until Discontinued, Routine Given 11/17/2021 8:54 PM EDT 50 mg Given 11/17/2021 8:51 AM EDT 50 mg fluconazole (Diflucan) 400 mg in New Bag 11/12/2021 8:21 AM ED T 400 mg 100 mL/hr sodium chloride 0.9% 200 mL infusion 400 mg, Intravenous, EVERY 24 HOURS, First dose on Thu11/01/21 at 0900, Until Discontinued, Administer over 120 Minutes, Indication for (Active or Suspected): Prophylaxis, Restricted Antibiotic: Please indicate the most appropriate choice: Pre-approved indication (state the indication in comments field) New Bag 11/11/2021 8:45 AM EDT 400 mg 100 mL/hr Restarted 11/10/2021 4:45 PM EDT 100 mL/hr fluconazole (Diflucan) tablet 400 mg Given 10/31/2021 8:55 AM EDT 400 mg 400 mg, Oral, DAILY, First dose on Thu10/22/21 at 0900, Until Discontinued, Begin on Day (0). May give IV if patient unable to take PO. Discontinue if other antifungal started., Routine Given 10/30/2021 9:10 AM EDT 400 mg Given 10/29/2021 8:26 AM EDT 400 mg fluconazole (Diflucan) tablet 400 mg Given 11/18/2021 8:09 AM EDT 400 mg 400 mg, Oral, DAILY, First dose on Thu11/13/21 at 0900, Until Discontinued, DO NOT SPLIT, CRUSH OR OPEN, Routine Given 11/17/2021 8:51 AM EDT 400 mg Given 11/16/2021 8:11 AM EDT 400 mg fludarabine (Fludara) 61 mg in New Bag 10/15/2021 6:36 PM EST 61 m g 204.9 mL/hr sodium chloride 0.9% 102.44 mL infusion 61 mg (rounded from 61.2 mg = 30 mg/m2/dose ? 2.04 m2 Treatment plan adjusted BSA), Intravenous, ONCE, 1 dose, On Thu10/15/21 at 1800, Administer over 30 Minutes, Administer once on day (-7). Consider a 20% dose reduction of fludarabine for patients with CrCl less than 70 mL/hr (per clinical pharmacology). Doses for chemotherapy/supportive care are based on CALGB 490779 and [facility]'s SOP (Chemotherapy Dosing Based on Adjusted or Anton Body Weight which uses the Fransisca method for ideal body weight): 1) Fludarabine dose will be based on an adjusted body weight (ABW) as follows: a) IBW (male) in kg = 50 + 2.3 kg per inch over 5 feet or b) IBW (female) in kg = 45.5 + 2.3 kg per inch over 5 feet. c) ABW in kg = [0.25 x (actual body weight - IBW)] + IBW. 2) If the actual body weight is greater than 150% of IBW, the patient's actual body weight will be capped at 150% of IBW (i.e., their ABW will be 112.5% of IBW). 3) For patients whose actual body weight is less than their IBW, use actual body weight. fludarabine (Fludara) 61 mg in New Bag 10/19/2021 9:29 AM EST 61 m g 204.9 mL/hr sodium chloride 0.9% 102.44 mL infusion 61 mg (rounded from 61.2 mg = 30 mg/m2/dose ? 2.04 m2 Treatment plan adjusted BSA), Intravenous, EVERY 24 HOURS, 4 doses, First dose on Thu10/16/21 at 0900, Last dose on Thu10/19/21 at 0900, Administer over 30 Minutes, Administer once daily on days (-6) through day (-3). Consider a 20% dose reduction of fludarabine for patients with CrCl less than 70 mL/hr (per clinical pharmacology). Doses for chemotherapy/supportive care are based on CALGB 977210 and [facility]'s SOP (Chemotherapy Dosing Based on Adjusted or Anton Body Weight which uses the Turtlepoint method for ideal body weight): 1) Fludarabine dose will be based on an adjusted body weight (ABW) as follows: a) IBW (male) in kg = 50 + 2.3 kg per inch over 5 feet or b) IBW (female) in kg = 45.5 + 2.3 kg per inch over 5 feet. c) ABW in kg = [0.25 x (actual body weight - IBW)] + IBW. 2) If the actual body weight is greater than 150% of IBW, the patient's actual body weight will be capped at 150% of IBW (i.e., their ABW will be 112.5% of IBW). 3) For patients whose actual body weight is less than their IBW, use actual body weight. New Bag 10/18/2021 9:05 AM EST 61 mg 204.9 mL/hr New Bag 10/17/2021 9:13 AM EST 61 mg 204.9 mL/hr furosemide (Lasix) (10 mg/mL) injection 20 mg Given 10/18/2021 6:32 AM EST 20 mg 20 mg, Intravenous, DAILY PRN, Starting on Tu10/15/21 at 1622, Until Thu10/18/21 at 0948, for weight gain greater than 1 kg above admission baseline, HOLD if SBP is less than 90 mmHg prior to furosemide administration. DO NOT give furosemide in AM of day (0). Given 10/17/2021 4:47 PM EST 20 mg Given 10/17/2021 6:06 AM EST 20 mg furosemide (Lasix) (10 mg/mL) injection 40 mg Given 10/18/2021 9:24 AM EST 40 mg 40 mg, Intravenous, ONCE, 1 dose, On Thu10/18/21 at 0730 furosemide (Lasix) (10 mg/mL) injection 60 mg Given 10/21/2021 6:16 PM EST 60 mg 60 mg, Intravenous, DAILY PRN, Starting on Thu10/18/21 at 0947, Until Thu11/18/21 at 1628, for weight gain greater than 1 kg above admission baseline, HOLD if SBP is less than 90 mmHg prior to furosemide administration. DO NOT give furosemide in AM of day (0). Given 10/18/2021 5:12 PM EST 60 mg furosemide (Lasix) (10 mg/mL) injection 60 mg 60 mg, Intravenous, 2 TIMES DAILY PRN, S tarting on Thu10/18/21 at 0948, Until Thu11/18/21 at 1628, for weight gain greater than 1 kg over 12 hours or input exceeding output by greater than 1,000 mL per 12 hours, HOLD if SBP is less than 90 mmHg prior to furosemide administration. DO NOT give furose mide in AM of day (0). gabapentin (Neurontin) capsule 100 mg Given 10/23/2021 9:11 AM EST 100 mg 100 mg, Oral, 3 TIMES DAILY, First dose on Thu10/21/21 at 1730, Until Discontinued, Routine Given 10/22/2021 8:23 PM EST 100 mg Given 10/22/2021 4:08 PM EST 100 mg gabapentin (Neurontin) capsule 200 mg Given 11/18/2021 8:09 AM EDT 200 mg 200 mg, Oral, 3 TIMES DAILY, First dose (after last modification) on Thu10/23/21 at 1500, Until Discontinued, Routine Given 11/17/2021 8:50 PM EDT 200 mg Given 11/17/2021 3:49 PM EDT 200 mg gadoterate meglumine (Dotarem) (0.5 mMol/mL) Given 3:50 PM EDT 20 mLs injection solution 0-100 mL 0-100 mL, Intravenous, ONCE PRN, 1 dose, Starting on 11/10/21 at 1541, Until 11/10/21 at 1550, Per Protocol, Radiology Contrast, Routine heparin (pf) (porcine) (100 units/mL) Given 10/15/2021 6:[address] 500 Units flush 5 mL syringe 500 Units 500 Units, Intravenous, ONCE PRN, Starting on 10/15/21 at 1622, Until 11/18/21 at 1628, Line Care, Refer to Intravenous (IV) Procedure: Accessing Implanted Vascular Access Devices (354) procedure and/or Intravenous (IV) Job Aid: Adult Flushing & Catheter Care (8380) job aid for additional information regarding guidelines and administration., Routine heparin (pf) (porcine) (100 units/mL) Given 11/14/2021 2:25 PM E DT 500 Units flush 5 mL syringe 500 Units 500 Units (5 mL), Intravenous, DAILY PRN, 1 dose, Starting on Kassy 11/14/21 at 1313, Until Kassy 11/14/21 at 1425, Line Care, Terminal Flush for de-accessing of Implantable Port, Routine HYDROmorphone (Dilaudid) (1 mg/mL) injection Given 2:14 PM EDT 0.2 mg syringe 0.2 mg 0.2 mg, Intravenous, EVERY 4 HOURS PRN, Starting on Kassy 10/31/21 at 1327, Until Kassy 10/31/21 at 1526, Pain, mild pain (1-3), May give an additional 0.2 mg in 30 minutes once if pain not relieved., Routine HYDROmorphone (Dilaudid) (1 mg/mL) injection Given 5:25 AM EDT 0.4 mg syringe 0.4 mg 0.4 mg, Intravenous, ONCE, 1 dose, On Kassy 10/31/21 at 0600, Routine HYDROmorphone (Dilaudid) (1 mg/mL) injection Given 8:44 AM EDT 0.4 mg syringe 0.4 mg 0.4 mg, Intravenous, ONCE, 1 dose, On Kassy 10/31/21 at 0830, Routine iohexoL (Omnipaque) (350 mg/mL) solution Given 11/03/2021 7:46 P M EDT 118 mLs 0-200 mL 0-200 mL, Intravenous, ONCE PRN, 1 dose, Starting on 11/03/21 at 1939, Until 11/03/21 at 1946, Per Protocol, Warning Vesicant/Irritant Medication , Radiology Contrast, Routine iohexoL (Omnipaque) (350 mg/mL) solution Given 11/10/2021 10:28 AM EDT 65 mLs 0-200 mL 0-200 mL, Intravenous, ONCE PRN, 1 dose, Starting on 11/10/21 at 1028, Until 11/10/21 at 1028, Per Protocol, Warning Vesicant/Irritant Medication , Radiology Contrast, Routine lactated Ringers 1,000 mL IV bolus New Bag 10/20/2021 10:29 AM EST 1000 mL/hr at 1,000 mL/hr, Intravenous, ONCE, 1 dose, On 10/20/21 at 1030 lactated Ringers 1,000 mL IV bolus New Bag 10/28/2021 1:41 PM EDT 333 mL/hr Intravenous, ONCE, 1 dose, On 10/28/21 at 1100 lactated Ringers 1,000 mL IV bolus New Bag 11/16/2021 2:04 PM EDT Intravenous, ONCE, 1 dose, On 11/16/21 at 1345 lactated Ringers 1,000 mL IV bolus New Bag 11/17/2021 10:16 AM EDT 333.3 mL/hr at 333.3 mL/hr, Intravenous, ONCE, 1 dose, On 11/17/21 at 1015 lactated ringers infusion New Bag 10/28/2021 5:40 PM EDT 125 mL/hr 125 mL/hr 125 mL/hr, Intravenous, CONTINUOUS, Starting on Thu10/28/21 at 1800, Until Thu10/28/21 at 1741 lactated ringers infusion New Bag 10/29/2021 8:45 AM EDT 150 mL/hr 150 mL/hr 150 mL/hr, Intravenous, CONTINUOUS, Starting on Thu10/29/21 at 0915, Until Thu10/29/21 at 0924 lactated ringers infusion Rate/Dose Change 11/01/2021 8:18 AM EDT 50 mL/hr 50 mL/hr 50 mL/hr, Intravenous, CONTINUOUS, Starting on Thu10/29/21 at 1015, Until Thu11/01/21 at 1000 New Bag 10/31/2021 11:50 AM EDT 75 mL/hr 75 mL/hr Rate/Dose Change 10/31/2021 9:00 AM EDT 75 mL/hr 75 mL/hr lactated ringers infusion New Bag 11/18/2021 12:20 AM EDT 150 mL/hr 150 mL/hr 150 mL/hr, Intravenous, CONTINUOUS, Starting on Thu11/17/21 at 1800, Until Thu11/18/21 at 0559 New Bag 11/17/2021 5:56 PM EDT 150 mL/hr 150 mL/hr lidocaine (Xylocaine) 1% (10 mg/mL) inje ction 3 mg 3 mg (0.3 mL), Subcutaneous, ONCE PRN, 1 dose, Startin g on Thu10/15/21 at 1600, Until Thu11/18/21 at 1628, for discomfort with PIV inse rtion, Routine lidocaine (Xylocaine) 2 % viscous solution 15 Given 6:10 PM EDT 15 mLs mL 15 mL, Mucous Membrane, EVERY 4 HOURS, First dose (after last modification) on Thu11/01/21 at 1045, Until Discontinued, Swallow prior to meals for mucositis pain, Routine Given 11/01/2021 2:33 PM EDT 15 mLs Given 11/01/2021 11:54 AM EDT 15 mLs lidocaine (Xylocaine) 2 % viscous soluti on 15 mL 15 mL, Mucous Membrane, EVERY 4 HOURS CO N, Starting on Thu11/06/21 at 1230, Until Thu11/18/21 at 1628, pain, Swallow prior to meals for m ucositis pain, Routine loperamide (Imodium A-D) capsule 2 mg Given 10/23/2021 4:18 PM EST 2 mg 2 mg, Oral, 4 TIMES DAILY PRN, Starting on Thu10/20/21 at 0905, Until Thu10/28/21 at 1427, Diarrhea, Do not exceed 16 mg/day., Routine Given 10/21/2021 3:20 PM EST 2 mg Given 10/21/2021 12:18 AM EST 2 mg loperamide (Imodium A-D) capsule 2 mg Given 10/29/2021 8:21 AM EDT 2 mg 2 mg, Oral, 3 TIMES DAILY, First dose (after last modification) on Thu10/28/21 at 1515, Until Discontinued, Do not exceed 16 mg/day., Routine Given 10/28/2021 8:58 PM EDT 2 mg Given 10/28/2021 5:07 PM EDT 2 mg loperamide (Imodium A-D) capsule 2 mg Given 10/29/2021 10:46 PM EDT 2 mg 2 mg, Oral, 3 TIMES DAILY PRN, Starting on Thu10/29/21 at 1300, Until Thu11/18/21 at 1628, Diarrhea, Do not exceed 16 mg/day., Routine loperamide (Imodium A-D) capsule 2 mg Given 10/31/2021 8:55 AM EDT 2 mg 2 mg, Oral, DAILY, First dose on Thu10/30/21 at 1045, Until Discontinued, Do not exceed 16 mg/day., Routine Given 10/30/2021 11:36 AM EDT 2 mg loperamide (Imodium A-D) capsule 2 mg Given 11/05/2021 9:03 PM EDT 2 mg 2 mg, Oral, 2 TIMES DAILY, First dose (after last modification) on Thu10/31/21 at 2100, Until Discontinued, Do not exceed 16 mg/day., Routine Given 11/05/2021 10:05 AM EDT 2 mg Given 11/04/2021 9:13 PM EDT 2 mg loperamide (Imodium A-D) capsule 2 mg Given 11/08/2021 8:35 AM EDT 2 mg 2 mg, Oral, EVERY 6 HOURS, First dose (after last modification) on Thu11/06/21 at 1500, Until Discontinued, Do not exceed 16 mg/day. Hold for solid stool output, Routine Given 11/07/2021 9:00 PM EDT 2 mg Given 11/07/2021 2:32 PM EDT 2 mg loperamide (Imodium A-D) capsule 2 mg Given 11/18/2021 8:09 AM EDT 2 mg 2 mg, Oral, 2 TIMES DAILY, First dose (after last modification) on Thu11/08/21 at 2100, Until Discontinued, Do not exceed 16 mg/day. Hold for solid stool output, Routine Given 11/17/2021 9:27 PM EDT 2 mg Given 11/17/2021 9:00 AM EDT 2 mg LORazepam (Ativan) (2 mg/mL) injection 0 .5 mg 0.5 mg, Intravenous, EVERY 4 HOURS PRN, Starting on Thu10/15/21 at 1622, Until Thu11/18/21 at 1628, Anxiety, Nausea, May repeat once in 30 minutes if prior dose is ineffective. One repeat dose may be given within each 4-hour interval. If multiple antiemetics are ordered, use in the following sequence: Ondansetron>Prochlorperazine or Prometha zine>Lorazepam>Metoclopramide, Routine LORazepam (Ativan) (2 mg/mL) injection 0 .5 mg Given 11/10/2021 2:49 PM EDT 0.5 mg 0.5 mg, Intravenous, ONCE, 1 dose, On Thu11/10/21 at 1530, Give prior to MRI for claustrophobia, Routine Magnesium Oxide-Mg AA Chelate 133 mg Tab 266 Given 11/2021 8:21 AM EDT 266 mg mg 266 mg, Oral, 2 TIMES DAILY, First dose on Thu11/15/21 at 1245, Until Discontinued Given 11/17/2021 8:49 PM EDT 266 mg Given 11/17/2021 8:50 AM EDT 266 mg magnesium sulfate 1 g in dextrose 5% 100 mL infusion 1 g, Intravenous, EVERY 1 HOUR PRN, Starting on Thu at 0957, Until Thu11/18/21 at 1628, Administer over 60 Minut es, HSCT Electrolyte Replacement, Please consider using oral supplementation whenever possible* * If serum magnesium is between 0.51 - 0.69 mMol/L, give a total of 4 grams of magnesium sulfate as follows: magnesium sulfate 2 grams IV in fused over 2 hours for 2 doses. If serum magnesium is less than or equal to 0.5 mMol/L, notify dimension warehouse supervisor and give 5 grams of magnesium sulfate as follows: m agnesium sulfate 2 grams IV infused over 2 hours for 2 doses followed by magnesium sulfate 1 gram IV infused over 1 hour once. Discontinue these orders and have dimension warehouse supervisor order electrolytes if serum creatinine is greater than or equal to 1.7 mg/dL or if patient is receiving parenteral nutrition. magnesium sulfate 2 g in sterile water New Bag 10/30/2021 9:19 AM EDT 2 g 25 mL/hr 50 mL infusion 2 g, Intravenous, EVERY 2 HOURS PRN, Starting on Thu10/15/21 at 1622, Until Thu11/01/21 at 0005, Administer over 120 Minutes, HSCT Electrolyte Replacement, Please consider using oral supplementation whenever possible If serum magnesium is between 0.51 - 0.69 mMol/L, give a total of 4 grams of magnesium sulfate as follows: magnesium sulfate 2 grams IV infused over 2 hours for 2 doses. If serum magnesium is less than or equal to 0.5 mMol/L, notify dimension warehouse supervisor and give 5 grams of magnesium sulfate as follows: magnesium sulfate 2 grams IV infused over 2 hours for 2 doses followed by magnesium sulfate 1 gram IV infused over 1 hour once. Discontinue these orders and have dimension warehouse supervisor order electrolytes if serum creatinine is greater than or equal to 1.7 mg/dL or if patient is receiving parenteral nutrition. New Bag 10/30/2021 5:34 AM EDT 2 g 25 mL/hr New Bag 10/26/2021 8:31 AM EST 2 g 25 mL/hr magnesium sulfate 2 g in sterile water New Bag 11/01/2021 11:5 4 AM EDT 2 g 25 mL/hr 50 mL infusion 2 g, Intravenous, ONCE, 1 dose, On Thu11/01/21 at 1045, Administer over 120 Minutes magnesium sulfate 2 g in sterile water 5 0 mL infusion 2 g, Intravenous, EVERY 2 HOURS PRN, Starting on Thu at 0957, Until Thu11/18/21 at 1628, Administer over 120 Maddi elder, HSCT Electrolyte Replacement, Please consider using oral supplementation whenever possible* * If serum magnesium is between 0.51 - 0.69 mMol/L, give a total of 4 grams of magnesium sulfate as follows: magnesium sulfate 2 grams IV in fused over 2 hours for 2 doses. If serum magnesium is less than or equal to 0.5 mMol/L, notify dimension warehouse supervisor and give 5 grams of magnesium sulfate as follows: m agnesium sulfate 2 grams IV infused over 2 hours for 2 doses followed by magnesium sulfate 1 gram IV infused over 1 hour once. Discontinue these orders and have dimension warehouse supervisor order electrolytes if serum creatinine is greater than or equal to 1.7 mg/dL or if patient is receiving parenteral nutrition. magnesium sulfate 2 g in sterile water New Bag 11/03/2021 11:2 9 AM EDT 2 g 25 mL/hr 50 mL infusion 2 g, Intravenous, ONCE, 1 dose, On Thu11/03/21 at 0845, Administer over 120 Minutes magnesium sulfate 2 g in sterile water New Bag 11/04/2021 12:1 3 PM EDT 2 g 25 mL/hr 50 mL infusion 2 g, Intravenous, ONCE, 1 dose, On Thu11/04/21 at 1145, Administer over 120 Minutes magnesium sulfate 2 g in sterile water New Bag 11/05/2021 12:3 2 PM EDT 2 g 25 mL/hr 50 mL infusion 2 g, Intravenous, ONCE, 1 dose, On Thu11/05/21 at 0830, Administer over 120 Minutes magnesium sulfate 2 g in sterile water New Bag 11/06/2021 9:51 AM EDT 2 g 25 mL/hr 50 mL infusion 2 g, Intravenous, ONCE, 1 dose, On Thu11/06/21 at 0900, Administer over 120 Minutes magnesium sulfate 2 g in sterile water New Bag 11/08/2021 10:3 5 AM EDT 2 g 25 mL/hr 50 mL infusion 2 g, Intravenous, ONCE, 1 dose, On Thu11/08/21 at 0845, Administer over 120 Minutes magnesium sulfate 2 g in sterile water New Bag 11/11/2021 2:10 PM EDT 2 g 25 mL/hr 50 mL infusion 2 g, Intravenous, ONCE, 1 dose, On Thu11/11/21 at 1015, Administer over 120 Minutes magnesium sulfate 2 g in sterile water New Bag 11/12/2021 8:20 AM EDT 2 g 25 mL/hr 50 mL infusion 2 g, Intravenous, ONCE, 1 dose, On Thu11/12/21 at 0845, Administer over 120 Minutes magnesium sulfate 2 g in sterile water New Bag 11/17/2021 9:03 AM EDT 2 g 25 mL/hr 50 mL infusion 2 g, Intravenous, ONCE, 1 dose, On Thu11/17/21 at 0900, Administer over 120 Minutes meperidine (pf) (Demerol) (100 mg/mL) Given 10/22/2021 1:[address] 25 mg injection vial 25 mg 25 mg, Intravenous, ONCE, 1 dose, On Thu10/22/21 at 1400, Routine MEROpenem (Merrem) 1 g vial attach to New Bag 11/12/2021 2:24 PM EDT 1 g 33.3 mL/hr sodium chloride 0.9% 100 mL Mini-Bag Plus 1 g, Intravenous, EVERY 8 HOURS, First dose on Thu11/10/21 at 1215, Until Discontinued, Administer over 3 Hours, Indication for (Active or Suspected): Neutropenic Fever, Restricted Antibiotic: Please indicate the most appropriate choice: Pre-approved indication (state the indication in comments field) New Bag 11/12/2021 6:36 AM EDT 1 g 33.3 mL/hr New Bag 11/11/2021 9:43 PM EDT 1 g 33.3 mL/hr metHOTREXate (pf) (Rheumatrex) (25 mg/mL) Given 10/23/2021 9:17 PM EST 10 mg injection 10 mg 10 mg (rounded from 10.2 mg = 5 mg/m2/do se ? 2.04 m2 Treatment plan adjusted BSA), Intravenous, ONCE, 1 dose, On Thu10/23/21 at 2100, Administer over 5 Minutes, Administer on day (+1). HOLD Methotrexate for serum creatinine greater than 3 mg/dL. First methotrexate dose to begin at least 24 hours after stem cell infusion; if cells administered over 2 days give methotrexate on day (+2). Doses for chemotherapy/supportive care are based on CALGB 019565 and [facility]'s SOP (Chemotherapy Dosing Based on Adjusted or Anton Body Weight which uses the Turtlepoint method for ideal body weight): 1) Methotrexate dose will be based on an adjusted body weight (ABW) as follows: a) IBW (male) in kg = 50 + 2.3 kg per inch over 5 feet or b) IBW (female) in kg = 45.5 + 2.3 kg per inch over 5 feet. c) ABW in kg = [0.25 x (actual body weight - IBW)] + IBW. 2) If the actual body weight is greater than 150% of IBW, the patient's actual body weight will be capped at 150% of IBW (i.e., their ABW will be 112.5% of IBW). 3) For patients whose actual body weight is less than their IBW, use actual body weight. metHOTREXate (pf) (Rheumatrex) (25 mg/mL) Given 10/28/2021 12:42 PM EDT 10 mg injection 10 mg 10 mg (rounded from 10.2 mg = 5 mg/m2/do se ? 2.04 m2 Treatment plan adjusted BSA), Intravenous, ONCE, 1 dose, On Thu10/28/21 at 1000, Administer over 5 Minutes, Administer on day (+6). HOLD Methotrexate for serum creatinine greater than 3 mg/dL. First methotrexate dose to begin at least 24 hours after stem cell infusion; if cells administered over 2 days give methotrexate on day (+7). Doses for chemotherapy/supportive care are based on CALGB 226510 and [facility]'s SOP (Chemotherapy Dosing Based on Adjusted or Anton Body Weight which uses the Turtlepoint method for ideal body weight): 1) Methotrexate dose will be based on an adjusted body weight (ABW) as follows: a) IBW (male) in kg = 50 + 2.3 kg per inch over 5 feet or b) IBW (female) in kg = 45.5 + 2.3 kg per inch over 5 feet. c) ABW in kg = [0.25 x (actual body weight - IBW)] + IBW. 2) If the actual body weight is greater than 150% of IBW, the patient's actual body weight will be capped at 150% of IBW (i.e., their ABW will be 112.5% of IBW). 3) For patients whose actual body weight is less than their IBW, use actual body weight. metHOTREXate (pf) (Rheumatrex) (25 mg/mL) Given 11/02/2021 10:55 AM EDT 10 mg injection 10 mg 10 mg (rounded from 10.2 mg = 5 mg/m2/do se ? 2.04 m2 Treatment plan adjusted BSA), Intravenous, ONCE, 1 dose, On Thu11/02/21 at 1000, Administer over 5 Minutes, Administer on day (+11). HOLD Methotrexate for serum creatinine greater than 3 mg/dL. First methotrexate dose to begin at least 24 hours after stem cell infusion; if cells administered over 2 days give methotrexate on day +12). Doses for chemotherapy/supportive care are based on CALGB 850229 and [facility]'s SOP (Chemotherapy Dosing Based on Adjusted or Anton Body Weight which uses the Turtlepoint method for ideal body weight): 1) Methotrexate dose will be based on an adjusted body weight (ABW) as follows: a) IBW (male) in kg = 50 + 2.3 kg per inch over 5 feet or b) IBW (female) in kg = 45.5 + 2.3 kg per inch over 5 feet. c) ABW in kg = [0.25 x (actual body weight - IBW)] + IBW. 2) If the actual body weight is greater than 150% of IBW, the patient's actual body weight will be capped at 150% of IBW (i.e., their ABW will be 112.5% of IBW). 3) For patients whose actual body weight is less than their IBW, use actual body weight. methylPREDNISolone sod succ (pf) Given 10/16/2021 8:58 PM EST 81 .25 mg (SOLU-Medrol) (125 mg/2 mL) injection 81.25 mg 81.25 mg (rounded from 83.2 mg = 1 mg/kg/dose ? 83.2 kg Treatment plan adjusted weight), Intravenous, EVERY 5 HOURS, 2 doses, First dose on Thu10/16/21 at 1400, Last dose on Thu10/16/21 at 2000, Day (-6): Administer at initiation and again midway through the administration of each dose of rabbit anti-thymocyte globulin. Given 10/16/2021 3:20 PM EST 81.25 mg methylPREDNISolone sod succ (pf) Given 10/17/2021 7:50 PM EST 81 .25 mg (SOLU-Medrol) (125 mg/2 mL) injection 81.25 mg 81.25 mg (rounded from 83.2 mg = 1 mg/kg/dose ? 83.2 kg Treatment plan adjusted weight), Intravenous, EVERY 5 HOURS, 2 doses, First dose on Thu10/17/21 at 1400, Last dose on Thu10/17/21 at 1950, Day (-5): Administer at initiation and again midway through the administration of each dose of rabbit anti-thymocyte globulin. Given 10/17/2021 2:45 PM EST 81.25 mg methylPREDNISolone sod succ (pf) Given 10/18/2021 7:25 PM EST 81 .25 mg (SOLU-Medrol) (125 mg/2 mL) injection 81.25 mg 81.25 mg (rounded from 83.2 mg = 1 mg/kg/dose ? 83.2 kg Treatment plan adjusted weight), Intravenous, EVERY 5 HOURS, 2 doses, First dose on Thu10/18/21 at 1400, Last dose on Thu10/18/21 at 1900, Day (-4): Administer at initiation and again midway through the administration of each dose of rabbit anti-thymocyte globulin. Given 10/18/2021 2:13 PM EST 81.25 mg metoprolol succinate XL (Toprol-XL) tablet 50 Given 8:09 AM EDT 50 mg mg 50 mg, Oral, DAILY, First dose on Thu11/01/21 at 0900, Until Discontinued, DO NOT CRUSH OR OPEN, Routine Given 11/17/2021 8:51 AM EDT 50 mg Given 11/16/2021 8:11 AM EDT 50 mg metoprolol tartrate (Lopressor) tablet 12.5 Given 10/15 8:34 PM EDT 12.5 mg mg 12.5 mg, Oral, EVERY 6 HOURS SCHEDULED, First dose on Thu10/15/21 at 1800, Until Discontinued, Hold for SBP<90, HR<60, Routine Given 10/31/2021 2:05 PM EDT 12.5 mg Given 10/31/2021 9:00 AM EDT 12.5 mg morphine (2 mg/mL) injection 1 mg Given 10/31/2021 10:03 PM EDT 1 mg 1 mg, Intravenous, ONCE, 1 dose, On Thu10/31/21 at 2200, Routine morphine (2 mg/mL) injection 2 mg Given 10/31/2021 11:01 PM EDT 2 mg 2 mg, Intravenous, EVERY 4 HOURS PRN, Starting on Kassy 10/31/21 at 1525, Until Thu11/01/21 at 0905, Pain, Routine Given 10/31/2021 6:28 PM EDT 2 mg morphine (2 mg/mL) injection 2 mg Given 11/05/2021 8:22 PM EDT 2 mg 2 mg, Intravenous, EVERY 3 HOURS PRN, Starting on Thu11/01/21 at 0904, Until Thu11/06/21 at 1029, Pain, mild pain (1-3), May give an additional 2 mg in 30 minutes once if pain not relieved., Routine Given 11/04/2021 8:08 PM EDT 2 mg Given 11/04/2021 3:28 PM EDT 2 mg morphine (2 mg/mL) injection 2 mg Given 11/10/2021 12:52 AM EDT 2 mg 2 mg, Intravenous, ONCE, 1 dose, On Thu11/10/21 at 0045, Routine morphine (4 mg/mL) injection 4 mg Given 11/06/2021 9:40 AM EDT 4 mg 4 mg, Intravenous, EVERY 3 HOURS PRN, Starting on Thu11/01/21 at 0904, Until Thu11/06/21 at 1029, Pain, moderate pain (4-6), May give an additional 2 mg in 30 minutes once if pain not relieved., Routine Given 11/05/2021 9:34 AM EDT 4 mg Given 11/03/2021 1:00 PM EDT 4 mg morphine (4 mg/mL) injection 4 mg Given 11/10/2021 5:04 AM EDT 4 mg 4 mg, Intravenous, EVERY 4 HOURS, First dose on Thu11/06/21 at 1115, Until Discontinued, Routine Given 11/09/2021 9:49 PM EDT 4 mg Given 11/09/2021 12:30 PM EDT 4 mg morphine (4 mg/mL) injection 4 mg 4 mg, Intravenous, EVERY 4 HOURS PRN, St arting on Thu11/11/21 at 0930, Until Thu11/18/21 at 1628, Pain, Routine ondansetron (pf) (Zofran) (2 mg/mL) inje ction 8 mg Given 11/16/2021 8:18 AM 8 mg 8 mg, Intravenous, EVERY 8 HOURS PRN, Starting on EDT 10/19/21 at 0900, Until 11/18/21 at 1628, Nausea, Vomiting, Beginning on Day (-3). Maximum dose 32 mg per day. If multiple antiemetics are ordered, use in the following sequence: Ondansetron>Prochlorperazine or Promethazine>Lorazepam>Metoclopramide Given 11/13/2021 6:49 PM EDT 8 mg Given 11/08/2021 8:19 AM EDT 8 mg ondansetron (Zofran) 16 mg in sodium New Bag 10/19/2021 9:21 A M EST 16 mg 232 mL/hr chloride 0.9% 58 mL infusion 16 mg 16 mg, Intravenous, ONCE, 1 dose, On 10/19/21 at 0900, Administer over 15 Minutes, Administer once prior to busulfan on day (-3). palonosetron (Aloxi) (0.05 mg/mL) injection Given 09/2021 9:39 AM EST 0.25 mg 0.25 mg 0.25 mg, Intravenous, ONCE, 1 dose, On Thu10/16/21 at 0900, Administer on day (-6) prior to the first dose of busulfan., Routine pantoprazole (Protonix) injection 40 mg Given 11/01/2021 9:25 AM EDT 40 mg 40 mg, Intravenous, DAILY, First dose on Thu10/31/21 at 1415, Until Discontinued pantoprazole (Protonix) injection 40 mg Given 11/12/2021 8:19 PM EDT 40 mg 40 mg, Intravenous, 2 TIMES DAILY, First dose on Thu11/01/21 at 2100, Until Discontinued Given 11/12/2021 8:21 AM EDT 40 mg Given 11/11/2021 9:52 PM EDT 40 mg pantoprazole EC (Protonix) tablet 40 mg Given 10/27/2021 8:31 AM EDT 40 mg 40 mg, Oral, DAILY, First dose on Thu10/15/21 at 1715, Until Discontinued, DO NOT CRUSH OR OPEN Give IV if unable to take by mouth. Pharmacy will send IV only upon request., Routine Given 10/26/2021 8:32 AM EST 40 mg Given 10/25/2021 9:23 AM EST 40 mg pantoprazole EC (Protonix) tablet 40 mg Given 10/31/2021 8:55 AM EDT 40 mg 40 mg, Oral, 2 TIMES DAILY, First dose (after last modification) on Thu10/27/21 at 2100, Until Discontinued, DO NOT CRUSH OR OPEN Give IV if unable to take by mouth. Pharmacy will send IV only upon request., Routine Given 10/30/2021 8:13 PM EDT 40 mg Given 10/30/2021 9:11 AM EDT 40 mg pantoprazole EC (Protonix) tablet 40 mg Given 11/18/2021 8:10 AM EDT 40 mg 40 mg, Oral, DAILY, First dose on Thu11/13/21 at 0900, Until Discontinued, DO NOT CRUSH OR OPEN, Routine Given 11/17/2021 8:51 AM EDT 40 mg Given 11/16/2021 8:11 AM EDT 40 mg phenytoin (Dilantin) chewable tablet 300 mg Given 10/16/2021 3:22 PM EST 300 mg 300 mg, Oral, 2 TIMES DAILY, 2 doses, First dose on Thu10/15/21 at 2100, Last dose on Thu10/16/21 at 1500, Administer phenytoin 300 mg chewable tablets orally on day (-7) at 1500 & 2100. HOLD phenytoin dose(s) if patient has taken from home supply. Use phenytoin chewable tablets or oral suspension., Routine Given 10/15/2021 8:12 PM EST 300 mg phenytoin ER (Dilantin) capsule 300 mg Given 10/21/2021 9:52 AM EST 300 mg 300 mg, Oral, DAILY, 6 doses, First dose on Thu10/16/21 at 0900, Last dose on Thu10/21/21 at 0900, Administer phenytoin 300 mg extended-release orally once daily at 0900 on days (-6) through and including day (-1). Continue phenytoin until 48 hours post completion of busulfan., Routine Given 10/20/2021 9:17 AM EST 300 mg Given 10/19/2021 9:21 AM EST 300 mg piperacillin-tazobactam (Zosyn) New Bag 11/02/2021 9:23 PM 3.375 g 12.5 mL/hr 3.375 g vial attach to sodium EDT chloride 0.9% 50 mL Mini-Bag Plus 3.375 g, Intravenous, EVERY 8 HOURS, First dose on 11/02/21 at 1045, Until Discontinued, Administer over 4 Hours, Warning Vesicant/Irritant Medication Do not administer or Y-site with lactated ringers., Indication for (Active or Suspected): Neutropenic Fever New Bag 11/02/2021 1:30 PM EDT 3.375 g 12.5 mL/hr potassium chloride 20 mEq in New Bag 10/24/2021 6:40 AM EST 20 mEq 100 mL/hr sterile water 100 mL infusion 20 mEq, Intravenous, EVERY 1 HOUR PRN, Starting on Tu10/15/21 at 1622, Until Thu11/01/21 at 0005, Administer over 60 Minutes, HSCT Electrolyte Replacement, If serum potassium is between 3.5 to 4 mMol/L give Potassium Chloride 20 mEq/100 mL IV over one hour for 2 doses if unable to take orally. If serum potassium is between 3 to 3.4 mMol/L give Potassium Chloride 20 mEq/100 mL IV over 1 hour for 4 doses if unable to take orally. If serum potassium is less than or equal to 2.9 mMol/L, notify dimension warehouse supervisor and give Potassium Chloride 20 mEq/100 mL IV over 1 hour for 5 doses. Discontinue these orders and have dimension warehouse supervisor order electrolytes if serum creatinine is greater than or equal to 1.7 mg/dL or if patient is receiving parenteral nutrition. New Bag 10/24/2021 5:34 AM EST 20 mEq 100 mL/hr New Bag 10/21/2021 6:48 AM EST 20 mEq 100 mL/hr potassium chloride 20 mEq in New Bag 11/13/2021 6:20 AM EDT 20 mEq 100 mL/hr sterile water 100 mL infusion 20 mEq, Intravenous, EVERY 1 HOUR PRN, Starting on Thu11/01/21 at 0957, Until Thu11/18/21 at 1628, Administer over 60 Minutes, HSCT Electrolyte Replacement, If serum potassium is between 3.5 to 4 mMol/L give Potassium Chloride 20 mEq/100 mL IV over one hour for 2 doses if unable to take orally. If serum potassium is between 3 to 3.4 mMol/L give Potassium Chloride 20 mEq/100 mL IV over 1 hour for 4 doses if unable to take orally. If serum potassium is less than or equal to 2.9 mMol/L, notify dimension warehouse supervisor and give Potassium Chloride 20 mEq/100 mL IV over 1 hour for 5 doses. Discontinue these orders and have dimension warehouse supervisor order electrolytes if serum creatinine is greater than or equal to 1.7 mg/dL or if patient is receiving parenteral nutrition. New Bag 11/13/2021 4:32 AM EDT 20 mEq 100 mL/hr New Bag 11/10/2021 6:23 AM EDT 20 mEq 100 mL/hr potassium chloride 20 mEq in New Bag 11/03/2021 9:50 AM EDT 20 mEq 100 mL/hr sterile water 100 mL infusion 20 mEq, Intravenous, EVERY 2 HOURS, 2 doses, First dose on Thu11/03/21 at 0845, Last dose on Thu11/03/21 at 1045, Administer over 60 Minutes, Warning Vesicant/Irritant Medication potassium chloride 20 mEq in New Bag 11/04/2021 12:14 PM EDT 20 mE q 100 mL/hr sterile water 100 mL infusion 20 mEq, Intravenous, EVERY 2 HOURS, 2 doses, First dose on Thu11/04/21 at 0845, Last dose on Thu11/04/21 at 1045, Administer over 60 Minutes, Warning Vesicant/Irritant Medication potassium chloride 20 mEq in New Bag 11/05/2021 1:25 PM EDT 20 mEq 100 mL/hr sterile water 100 mL infusion 20 mEq, Intravenous, EVERY 2 HOURS, 3 doses, First dose on Thu11/05/21 at 0830, Last dose on Thu11/05/21 at 1230, Administer over 60 Minutes, Warning Vesicant/Irritant Medication New Bag 11/05/2021 11:39 AM EDT 20 mEq 100 mL/hr Bag 11/05/2021 9:44 AM EDT 20 mEq 100 mL/hr potassium chloride ER (K-Dur/Klor-Con) tablet Given 9:35 AM EST 20 mEq 20 mEq 20 mEq, Oral, EVERY 4 HOURS PRN, Starting on Thu10/15/21 at 1622, Until Thu11/01/21 at 0005, HSCT Electrolyte Replacement, If serum potassium is between 3.5 to 4 mMol/L give potassium chloride 20 mEq Extended Release orally for 2 doses. May give IV if unable to take orally. Discontinue these orders and have dimension warehouse supervisor order electrolytes if serum creatinine is greater than or equal to 1.7 mg/dL or if patient is receiving parenteral nutrition., Routine Given 10/18/2021 5:12 PM EST 20 mEq Given 10/18/2021 9:23 AM EST 20 mEq potassium chloride ER (K-Dur/Klor-Con) t ablet 20 mEq 20 mEq, Oral, EVERY 4 HOURS PRN, Startin g on Thu11/01/21 at 0957, Until Thu11/18/21 at 1628, HSCT Electrolyte Replacement, If serum potass ium is between 3.5 to 4 mMol/L give potassium chloride 20 mEq Ex tended Release orally for 2 doses. May give IV if unable to take orally. Discontinue these orders and have dimension warehouse supervisor order electrolytes if serum creatinine is greater than or eq ual to 1.7 mg/dL or if patient is receiving parenteral nutrition., Routine potassium chloride ER (K-Dur/Klor-Con) t ablet 40 mEq 40 mEq, Oral, EVERY 4 HOURS PRN, Startin g on Thu11/01/21 at 0957, Until Thu11/18/21 at 1628, HSCT Electrolyte Replacement, If serum potass ium is between 3 to 3.4 mMol/L, give Potassium Chloride 40 mEq E xtended Release by mouth for 2 doses. May give IV if unable to take orally. Discon tinue these orders and have dimension warehouse supervisor order electrolytes if serum creatinine i s greater than or equal to 1.7 mg/dL or if patient is receiving parenteral nutrition., Routine potassium phosphate 10 mMol in sodium New Bag 10/23/2021 5:[address] 10 mmol chloride 0.9% 100 mL infusion 10 mmol, Intravenous, DAILY PRN, Starting on Thu10/15/21 at 1622, Until Thu11/01/21 at 0005, Administer over 4 Hours, HSCT Electrolyte Replacement, Please consider using oral supplementation whenever possible If serum phosphorus is between 1.5 - 2.5 mg/dL, give: potassium phosphate 10 mMol / 100 mL IV infused over 4 hours once. Discontinue these orders and have dimension warehouse supervisor order electrolytes if serum creatinine is greater than or equal to 1.7 mg/dL or if patient is receiving parenteral nutrition. New Bag 10/20/2021 9:42 AM EST 10 mmol New Bag 10/19/2021 5:40 AM EST 10 mmol prochlorperazine (Compazine) (5 mg/mL) injection Given 11/04 3:32 PM 10 mg 10 mg EDT 10 mg, Intravenous, EVERY 6 HOURS PRN, Starting on Thu10/15/21 at 1622, Until Thu11/18/21 at 1628, Nausea, Vomiting, If multiple antiemetics are ordered, use in the following sequence: Ondansetron>Prochlorperazine or Promethazine>Lorazepam>Metoclopramide, Routine Given 11/02/2021 11:43 PM EDT 10 mg Given 10/23/2021 2:32 PM EST 10 mg rosuvastatin (Crestor) tablet 40 mg Given 11/10/2021 5:43 PM EDT 40 mg 40 mg, Oral, EVERY EVENING, First dose on Thu11/10/21 at 1700, Until Discontinued, Routine sodium chloride 0.9 % (flush) (BD PosiFl us Normal Saline 0.9) flush 10 mL 10 mL, Intravenous, DAILY PRN, Starting on Thu11/04/21 at 1923, Until Thu11/18/21 at 1628, For use when accessing Implantable Port, Routine sodium chloride 0.9 % (flush) (BD PosiFlush Given 11/18/2021 8:2 2 AM EDT 5 mLs Normal Saline 0.9) flush 5 mL 5 mL, Intravenous, 2 TIMES DAILY, First dose on Thu10/15/21 at 2100, Until Discontinued, Routine Given 11/17/2021 8:56 PM EDT 5 mLs Given 11/17/2021 9:03 AM EDT 5 mLs sodium chloride 0.9 % (flush) (BD PosiFl ush Normal Saline 0.9) flush 5-20 mL 5-20 mL, Intravenous, EVERY 1 MIN PRN, S tarting on Thu10/15/21 at 1600, Until Thu11/18/21 at 1628, flush, Flush pertains to all indwelling lines. Flush per protocol found in the job aid using the link prov ided on this medication record., Routine sodium chloride 0.9 % (flush) (BD PosiFl us Normal Saline 0.9) flush 5-20 mL 5-20 mL, Intravenous, EVERY 1 MIN PRN, S tarting on Thu10/15/21 at 1622, Until Thu11/18/21 at 1628, Line Care, Flush pertains to all indwe lling lines. Flush per protocol found in the job aid using the link provided on this medication record. Refer to Intravenous (IV) Job Aid: Judith t Flushing & Catheter Care ([id number]) job aid for additional information regarding guidelines and ad ministration., Routine sodium chloride 0.9% 1,000 mL IV bolus New Bag 10/27/2021 8:41 AM EDT 500 mL/hr at 500 mL/hr, Intravenous, ONCE, 1 dose, On 10/27/21 at 0930 sodium chloride 0.9% 500 mL IV bolus New Bag 10/19/2021 7:36 PM EST 999 mL/hr Intravenous, ONCE, 1 dose, On 10/19/21 at 2015 sodium chloride 0.9% infusion New Bag 10/16/2021 8:21 AM EST 250 mL/hr 250 mL/hr 250 mL/hr, Intravenous, CONTINUOUS, Starting on Thu10/16/21 at 0800, Until Thu10/16/21 at 0959, Hydration for day (-6) (busulfan hydration): Give 0.9% sodium chloride IV at 250 mL/hour for 2 hours prior to the start of busulfan. sodium chloride 0.9% infusion New Bag 10/19/2021 2:15 AM EST 150 mL/hr 150 mL/hr 150 mL/hr, Intravenous, CONTINUOUS, Starting on Thu10/16/21 at 1000, Until Thu10/19/21 at 1359, Starting with the first dose of busulfan on day (-6) administer 0.9 % sodium chloride IV at 150 ml/hr and continue through completion of last dose of busulfan on day (-3). Discontinue fluids with completion of busulfan. New Bag 10/18/2021 7:39 PM EST 150 mL/hr 150 mL/hr New Bag 10/17/2021 10:23 PM EST 150 mL/hr 150 mL/hr sodium chloride 0.9% infusion New Bag 10/22/2021 11:18 AM EST 250 mL/hr 250 mL/hr 250 mL/hr, Intravenous, CONTINUOUS, Starting on Thu10/22/21 at 0600, Until Thu10/22/21 at 1159, 1) Give 0.9% sodium chloride at 250 mL/hour for 4 hours prior to stem cell infusion. 2) Hold hydration during stem cell administration. 3) After stem cell infusion completed, restart 0.9% sodium chloride at 250 mL/hour for 2 hours. 4) Call provider after day (0) hydration completed to assess need for diuretic New Bag 10/22/2021 5:59 AM EST 250 mL/hr 250 mL/hr sucralfate (Carafate) (100 mg/mL) oral liquid 1 Given 10/29/2021 10:46 PM EDT 1 g g 1 g, Oral, 4 TIMES DAILY PRN, Starting on Thu10/27/21 at 1437, Until Thu11/18/21 at 1628, heartburn, Routine Given 10/27/2021 11:58 PM EDT 1 g Given 10/27/2021 3:42 PM EDT 1 g sulfamethoxazole-trimethoprim DS (Bactrim Given 10/20/2021 9 :18 AM EST 1 tablet DS) 800-160 mg per tablet 1 tablet 1 tablet, Oral, DAILY, 6 doses, First dose on Thu10/15/21 at 1715, Last dose on Thu10/20/21 at 0900, Recommended Dose: 1 tablet daily from admission, day (-7) until and including day (-2). Discontinue after day (-2) dose given., Routine Given 10/19/2021 9:22 AM EST 1 tablet Given 10/18/2021 9:24 AM EST 1 tablet sulfamethoxazole-trimethoprim DS (Bactri m DS) 800-160 mg per tablet 1 tablet 1 tablet, Oral, DAILY, First dose on [place]assy 11/21/21 at 090 0, Until Discontinued, Recommended dose: 1 tablet daily. If ANC is less than 500 / mm^3 and / or Platelets are less than 20,000 / mm^3 without transfusion on Day (+ 30), do NOT start sulfamethoxazole/trimethoprim; instead consider atovaq uone, dapsone, or pentamidine., Routine supersaturated calcium phosphate (Caphosol) Given 11/18/2021 8:09 AM EDT 30 mLs oral solution 30 mL 30 mL, Oral, 4 TIMES DAILY, First dose on Thu10/15/21 at 1715, Until Discontinued, Given four times per day starting on admission and continuing until resolution of mucositis AND ANC is greater than 500 /mm^3 for 2 days.. Mix 1 blue and 1 clear ampule together in a glass. Swish with half of the liquid for ONE full minute. Expectorate. Swish again with the other half for another full minute. Expectorate., Routine Given 11/17/2021 9:02 PM EDT 30 mLs Given 11/17/2021 5:58 PM EDT 30 mLs tacrolimus (Prograf) 0.5 mg in New Bag 11/14/2021 9:00 AM EDT 0.5 mg 16.83 mL/hr dextrose 5% Non-PVC 50.5 mL infusion 0.5 mg, Intravenous, EVERY 12 HOURS SCHEDULED (2 times per day), First dose (after last modification) on [place] 11/07/21 at 2100, Until Discontinued, Administer over 3 Hours, Tacrolimus [...] Non-PVC Tubing to Administer Dose New Bag 11/13/2021 8:28 PM EDT 0.5 mg 16.83 mL/hr Bag 11/13/2021 9:56 AM EDT 0.5 mg 16.83 mL/hr tacrolimus (Prograf) 0.7 mg in New Bag 11/07/2021 9:32 AM EDT 0.7 mg 50.23 mL/hr dextrose 5% Non-PVC 150.7 mL infusion 0.7 mg, Intravenous, EVERY 12 HOURS SCHEDULED (2 times per day), First dose on Thu10/31/21 at 2100, Until Discontinued, Administer over 3 Hours, Tacrolimus [...] Non-PVC Tubing to Administer Dose New Bag 11/06/2021 8:51 PM EDT 0.7 mg 50.23 mL/hr New Bag 11/06/2021 9:58 AM EDT 0.7 mg 50.23 mL/hr tacrolimus (Prograf) capsule 1 mg Given 11/17/2021 8:49 PM EDT 1 mg 1 mg, Oral, NIGHTLY, First dose on Thu11/14/21 at 2100, Until Discontinued, DO NOT SPLIT, CRUSH OR OPEN, Routine Given 11/16/2021 8:26 PM EDT 1 mg Given 11/15/2021 8:40 PM EDT 1 mg tacrolimus (Prograf) capsule 1.5 mg Given 11/18/2021 8:09 AM EDT 1.5 mg 1.5 mg, Oral, DAILY, First dose on Thu11/15/21 at 0900, Until Discontinued, DO NOT SPLIT, CRUSH OR OPEN, Routine Given 11/17/2021 8:51 AM EDT 1.5 mg Given 11/16/2021 8:11 AM EDT 1.5 mg tacrolimus (Prograf) capsule 2 mg Given 10/31/2021 8:55 AM EDT 2 mg 2 mg, Oral, 2 TIMES DAILY, First dose (after last modification) on Thu10/29/21 at 2100, Until Discontinued, Beginning on day (-2). Round dose based on adjusted body weight as described. For patients whose actual body weight is less than their ideal body weight, use actual body weight: Further modifications per tacrolimus levels (target trough of 5-10 ng/mL; not to exceed 15 ng/mL), attending MD or REJI Standard Operating Procedure (SOP)., Routine Given 10/30/2021 8:15 PM EDT 2 mg Given 10/30/2021 9:11 AM EDT 2 mg tacrolimus (Prograf) capsule 2.5 mg Given 10/29/2021 8:24 AM EDT 2.5 mg 2.5 mg (rounded from 2.496 mg = 0.03 mg/kg/dose ? 83.2 kg Treatment plan adjusted weight), Oral, EVERY 12 HOURS SCHEDULED (2 times per day), First dose on Thu10/20/21 at 0900, Until Discontinued, Beginning on day (-2). Round dose based on adjusted body weight as described. For patients whose actual body weight is less than their ideal body weight, use actual body weight: Further modifications per tacrolimus levels (target trough of 5-10 ng/mL; not to exceed 15 ng/mL), attending MD or REJI Standard Operating Procedure (SOP)., Routine Given 10/28/2021 8:59 PM EDT 2.5 mg Given 10/28/2021 9:16 AM EDT 2.5 mg TPN Adult New Bag 11/03/2021 5:28 PM EDT 100 mL/hr Intravenous, at 100 mL/hr, Continuous (TPN), First dose (after last reorder) on Thu11/01/21 at 1945, 3 doses, Last dose on Thu11/03/21 at 1800, For 2-in-1 TPN (no lipid): Attach 0.2 micron filter set to primary set prior to infusion. For 2-in-1 TPNs with Y-sited lipids: Attach 1.2 micron filter set below Y-site. For 3-in-1 TPN (Lipid in TPN bag): Attach 1.2 micron filter set to primary set prior to infusion. Warning Vesicant/Irritant Medication New Bag 11/02/2021 6:01 PM EDT 100 mL/hr New Bag 11/01/2021 7:45 PM EDT 100 mL/hr TPN Adult New Bag 11/04/2021 5:45 PM EDT 100 mL/hr Intravenous, at 100 mL/hr, Continuous (TPN), First dose (after last reorder) on Thu11/04/21 at 1800, 1 dose, For 2-in-1 TPN (no lipid): Attach 0.2 micron filter set to primary set prior to infusion. For 2-in-1 TPNs with Y-sited lipids: Attach 1.2 micron filter set below Y-site. For 3-in-1 TPN (Lipid in TPN bag): Attach 1.2 micron filter set to primary set prior to infusion. Warning Vesicant/Irritant Medication TPN Adult New Bag 11/05/2021 5:53 PM EDT 120 mL/hr Intravenous, at 120 mL/hr, Continuous (TPN), First dose (after last reorder) on Thu11/05/21 at 1800, 1 dose, For 2-in-1 TPN (no lipid): Attach 0.2 micron filter set to primary set prior to infusion. For 2-in-1 TPNs with Y-sited lipids: Attach 1.2 micron filter set below Y-site. For 3-in-1 TPN (Lipid in TPN bag): Attach 1.2 micron filter set to primary set prior to infusion. Warning Vesicant/Irritant Medication TPN Adult New Bag 11/06/2021 6:01 PM EDT 120 mL/hr Intravenous, at 120 mL/hr, Continuous (TPN), First dose (after last reorder) on Thu11/06/21 at 1800, 1 dose, For 2-in-1 TPN (no lipid): Attach 0.2 micron filter set to primary set prior to infusion. For 2-in-1 TPNs with Y-sited lipids: Attach 1.2 micron filter set below Y-site. For 3-in-1 TPN (Lipid in TPN bag): Attach 1.2 micron filter set to primary set prior to infusion. Warning Vesicant/Irritant Medication TPN Adult New Bag 11/07/2021 6:28 PM EDT 120 mL/hr Intravenous, at 120 mL/hr, Continuous (TPN), First dose (after last reorder) on Thu11/07/21 at 1800, 1 dose, For 2-in-1 TPN (no lipid): Attach 0.2 micron filter set to primary set prior to infusion. For 2-in-1 TPNs with Y-sited lipids: Attach 1.2 micron filter set below Y-site. For 3-in-1 TPN (Lipid in TPN bag): Attach 1.2 micron filter set to primary set prior to infusion. Warning Vesicant/Irritant Medication TPN Adult New Bag 11/08/2021 6:03 PM EDT 120 mL/hr Intravenous, at 120 mL/hr, Continuous (TPN), First dose (after last reorder) on Thu11/08/21 at 1800, 1 dose, For 2-in-1 TPN (no lipid): Attach 0.2 micron filter set to primary set prior to infusion. For 2-in-1 TPNs with Y-sited lipids: Attach 1.2 micron filter set below Y-site. For 3-in-1 TPN (Lipid in TPN bag): Attach 1.2 micron filter set to primary set prior to infusion. Warning Vesicant/Irritant Medication TPN Adult New Bag 11/10/2021 6:40 PM EDT 120 mL/hr Intravenous, at 120 mL/hr, Continuous (TPN), First dose (after last reorder) on Thu11/09/21 at 1800, 2 doses, Last dose on Thu11/10/21 at 1800, For 2-in-1 TPN (no lipid): Attach 0.2 micron filter set to primary set prior to infusion. For 2-in-1 TPNs with Y-sited lipids: Attach 1.2 micron filter set below Y-site. For 3-in-1 TPN (Lipid in TPN bag): Attach 1.2 micron filter set to primary set prior to infusion. Warning Vesicant/Irritant Medication Restarted 11/10/2021 4:50 PM EDT 120 mL/hr New Bag 11/09/2021 6:21 PM EDT 120 mL/hr TPN Adult New Bag 11/11/2021 6:28 PM EDT 120 mL/hr Intravenous, at 120 mL/hr, Continuous (TPN), First dose (after last reorder) on Thu11/11/21 at 1800, 1 dose, For 2-in-1 TPN (no lipid): Attach 0.2 micron filter set to primary set prior to infusion. For 2-in-1 TPNs with Y-sited lipids: Attach 1.2 micron filter set below Y-site. For 3-in-1 TPN (Lipid in TPN bag): Attach 1.2 micron filter set to primary set prior to infusion. Warning Vesicant/Irritant Medication TPN Adult New Bag 11/12/2021 6:04 PM EDT 120 mL/hr Intravenous, at 120 mL/hr, Continuous (TPN), First dose (after last reorder) on Thu11/12/21 at 1800, 1 dose, For 2-in-1 TPN (no lipid): Attach 0.2 micron filter set to primary set prior to infusion. For 2-in-1 TPNs with Y-sited lipids: Attach 1.2 micron filter set below Y-site. For 3-in-1 TPN (Lipid in TPN bag): Attach 1.2 micron filter set to primary set prior to infusion. Warning Vesicant/Irritant Medication TPN Adult New Bag 11/13/2021 6:57 PM EDT 166 mL/hr Intravenous, at 166 mL/hr, Cyclic (TPN), First dose (after last modification) on Thu11/13/21 at 1800, 1 dose, Please run cyclic TPN for 12 hours from [id number] For 2-in-1 TPN (no lipid): Attach 0.2 micron filter set to primary set prior to infusion. For 2-in-1 TPNs with Y-sited lipids: Attach 1.2 micron filter set below Y-site. For 3-in-1 TPN (Lipid in TPN bag): Attach 1.2 micron filter set to primary set prior to infusion. Warning Vesicant/Irritant Medication TPN Adult New Bag 11/14/2021 5:49 PM EDT 166 mL/hr Intravenous, at 166 mL/hr, Cyclic (TPN), First dose (after last reorder) on Thu11/14/21 at 1800, 1 dose, Please run cyclic TPN for 12 hours from [id number] For 2-in-1 TPN (no lipid): Attach 0.2 micron filter set to primary set prior to infusion. For 2-in-1 TPNs with Y-sited lipids: Attach 1.2 micron filter set below Y-site. For 3-in-1 TPN (Lipid in TPN bag): Attach 1.2 micron filter set to primary set prior to infusion. Warning Vesicant/Irritant Medication ursodiol (Actigall) (60 mg/mL) oral liquid Given 11/18/2021 8:09 AM EDT 300 mg 300 mg 300 mg, Oral, DAILY WITH BREAKFAST, 21 doses, First dose on Thu11/02/21 at 0800, Last dose on Thu11/22/21 at 0800, For VOD prophylaxis day (-7) through day (+30), Routine Given 11/17/2021 8:50 AM EDT 300 mg Given 11/16/2021 8:18 AM EDT 300 mg ursodiol (Actigall) (60 mg/mL) oral liquid Given 11/17/2021 5:58 PM EDT 600 mg 600 mg 600 mg, Oral, DAILY WITH DINNER, 21 doses, First dose on Thu11/01/21 at 1715, Last dose on Thu11/21/21 at 1700, For VOD prophylaxis day (-7) through day (+30), Routine Given 11/16/2021 6:00 PM EDT 600 mg Given 11/15/2021 5:25 PM EDT 600 mg ursodioL (Actigall) capsule 300 mg Given 11/01/2021 9:26 AM EDT 300 mg 300 mg, Oral, DAILY WITH BREAKFAST, 38 doses, First dose on Thu10/16/21 at 0800, Last dose on Thu11/22/21 at 0800, For body weight of greater than 90 kg recommended dose 300 mg PO every AM and 600 mg PO every PM. VOD prophylaxis day (-7) through day (+30)., Routine Given 10/31/2021 8:55 AM EDT 300 mg Given 10/30/2021 9:10 AM EDT 300 mg ursodioL (Actigall) capsule 600 mg Given 10/30/2021 4:20 PM EDT 600 mg 600 mg, Oral, DAILY WITH DINNER, 38 doses, First dose on Thu10/15/21 at 1715, Last dose on Thu11/21/21 at 1700, For body weight of greater than 90 kg recommended dose 300 mg PO every AM and 600 mg PO every PM. VOD prophylaxis day (-7) through day (+30)., Routine Given 10/29/2021 5:31 PM EDT 600 mg Given 10/28/2021 5:09 PM EDT 600 mg vancomycin (Vancocin) 2 gram in sodium New Bag 10/21/2021 3:21 PM EST 2 g 250 mL/hr chloride 0.9% 500 mL infusion 2 g, Intravenous, EVERY 24 HOURS, First dose (after last modification) on Thu10/21/21 at 1615, Until Discontinued, Administer over 120 Minutes, Maximum infusion rate is 1 gram/hour. If flushing of the face, neck, upper body, arms, and/or back occurs decrease infusion rate by 50% to reduce the severity of symptoms. This medication may have an associated drug lab level. Please see MAR for scheduled level. Warning Vesicant/Irritant Medication , Indication for (Active or Suspected): Bacteremia/Sepsis vancomycin (Vancocin) 2,750 mg in New Bag 10/20/2021 5:[address] 2,750 mg 185 mL/hr sodium chloride 0.9% 555 mL infusion 2,750 mg, Intravenous, ONCE, 1 dose, On Thu10/20/21 at 1615, Administer over 180 Minutes, Maximum infusion rate is 1 gram/hour. If flushing of the face, neck, upper body, arms, and/or back occurs decrease infusion rate by 50% to reduce the severity of symptoms. This medication may have an associated drug lab level. Please see MAR for scheduled level. Warning Vesicant/Irritant Medication , Indication for (Active or Suspected): Bacteremia/Sepsis vancomycin (Vancocin) capsule 125 mg Given 11/18/2021 8:09 AM EDT 125 mg 125 mg, Oral, 2 TIMES DAILY, First dose on Thu10/15/21 at 2100, Until Discontinued, Routine Given 11/17/2021 8:55 PM EDT 125 mg Given 11/17/2021 8:51 AM EDT 125 mg documented in this encounter Active and Recently Administered Medications Times are shown in EDT. Scheduled Medication Order 11/16/2021 11/17/2021 11/18/2021 acyclovir (Zovirax) tablet 800 mg 0810 (Given - Provid er: Denise Madera RN)2026 (Given - Provider: Yvette Pichardo RN) 09 (Given - Provider: Narcisa Suggs RN)2049 (Given - Provider: Lakshmi Nelson RN) 08 (Given - Provider: Kelsy Mujica, SHARON) 800 mg, Oral, 2 TIMES DAILY, First dose on Thu11/13/21 at 2100, Until Discontinued, Routine DAPTOmycin (Cubicin) 845 mg in sodium chloride 0.9% 66 .9 mL (COMPLETED) 0330 (New Bag - Provider: Yvette Pichardo RN)0410 (Stopped - Provider: Yvette Pichardo RN) 0356 (New Bag - Provider: Yvette rodriguez RN)0443 (Stopped - Provider: Yvette Pichardo RN) 845 mg (rounded from 846 mg = 10 mg/kg/d ose ? 84.6 kg Adjusted weight), Intravenous, EVERY 24 HOURS, 15 doses, First dose (after last modification) on 11/03/21 at 0400, Last dose on 11/17/21 at 04 00, Administer over 30 Minutes, Indicati on for (Active or Suspected): Bacteremia/Sepsis, Restricted Antibiotic: Please indicate the most appropriate choice: Off hour exemption for 2 doses (11PM - 7AM) enoxaparin (Lovenox) (40 mg/0.4 mL) subcutaneous injec tion 40 mg 2026 (Given - Provider: Yvette Pichardo RN) 2048 (Given - Provider: Lakshmi Nelson RN) 40 mg, Subcutaneous, NIGHTLY, First dose on Thu11/15/21 at 2100, Until Discontinued, Routine flecainide (Tambocor) tablet 50 mg 811 (Given - Provi adam: Denise Madera RN)2025 (Given - Provider: Yvette Pichardo RN) 0851 (Given - Provider: Narcisa Suggs, SHARON)2053 (Given - Provider: Lakshmi Nelson RN) 0810 (Given - Provider: Kelsy Mujica, SHARON) 50 mg, Oral, 2 TIMES DAILY, First dose o n Thu10/15/21 at 2100, Until Discontinued, Routine fluconazole (Diflucan) tablet 400 mg 0811 (Given - Provider: Denise Madera RN) 0851 (Given - Provider: Narcisa Suggs, SHARON) 0809 (Given - Provider: Kelsy Mujica RN) 400 mg, Oral, DAILY, First dose on Thu at 0900, Until Discontinued, DO NOT SPLIT, CRUSH OR OPEN, Routine gabapentin (Neurontin) capsule 200 mg 0811 (Given - Pr ovider: Denise Madera RN)1556 (Given - Provider: Denise Madera RN)2024 (Given - Provider: Yvette Pichardo, SHARON) 0851 (Given - Provider: Narcisa davis RN)1549 (Given - Provider: Narcisa Suggs, SHARON)2049 (Given - Provider: Lakshmi Nelson, SHARON) 0809 (Given - Provider: Kelsy Mujica, SHARON) 200 mg, Oral, 3 TIMES DAILY, First dose (after last modification) on Thu10/23/21 at 1500, Until Discontinued, Routine lactated Ringers 1,000 mL IV bolus (COMPLETED) 1404 (N ew Bag - Provider: Denise Madera RN) Intravenous, ONCE, 1 dose, On 11/16/21 at 1345 lactated Ringers 1,000 mL IV bolus (COMPLETED) 1016 (New Bag - Provider: Narcisa Suggs RN)1316 (Stopped - Provider: Narcisa Suggs RN) at 333.3 mL/hr, Intravenous, ONCE, 1 dose, On 11/17/21 at 1015 loperamide (Imodium A-D) capsule 2 mg 0811 (Given - Pr ovider: Denise Madera RN)2024 (Given - Provider: Yvette Pichardo RN) 0900 (Given - Provider: Narcisa Suggs, SHARON)2126 (Given - Provider: Lakshmi Nelson, SHARON) 0809 (Given - Provider: Kelsy Mujica, SHARON) 2 mg, Oral, 2 TIMES DAILY, First dose (a fter last modification) on Thu11/08/21 at 2100, Until Discontinued, Do not exceed 16 mg/day. Hold for solid stool output, Routine Magnesium Oxide-Mg AA Chelate 133 mg Tab 266 mg 0811 ( Given - Provider: Denise Madera RN)2309 (Given - Provider: Yvette Pichardo RN) 0850 (Given - Provider: Narcisa Suggs, SHARON)204 (Given - Provider: Lakshmi Nelson, SHARON) 0821 (Given - Provider: Kelsy Mujica RN) 266 mg, Oral, 2 TIMES DAILY, First dose on Thu11/15/21 at 1245, Until Discontinued magnesium sulfate 2 g in sterile water 50 mL infusion (COMPL ETED) 09 (New Bag - Provider: Narcisa Suggs, SHARON)110 (Stopped - Provider: Narcisa Suggs, SHARON) 2 g, Intravenous, ONCE, 1 dose, On Thu at 0900, Administer over 120 Minutes metoprolol succinate XL (Toprol-XL) tablet 50 mg 08 (Given - Provider: Denise Madera RN) 0851 (Given - Provider: Narcisa Suggs, SHARON) 0809 (G iven - Provider: Kelsy Mujica RN) 50 mg, Oral, DAILY, First dose on Thu at 0900, Until Discontinued, DO NOT CRUSH OR OPEN, Routine pantoprazole EC (Protonix) tablet 40 mg 08 (Given - Provider: Denise Madera RN) 0851 (Given - Provider: Narcisa Suggs, SHARON) 0810 (G iven - Provider: Kelsy Mujica, SHARON) 40 mg, Oral, DAILY, First dose on Thu at 0900, Until Discontinued, DO NOT CRUSH OR OPEN, Routine sodium chloride 0.9 % (flush) (BD PosiFlush Normal Arturo ine 0.9) flush 5 mL 818 (Given - Provider: Denise Madera RN)2026 (Given - Provider: Yvette Pichardo RN) 09 (Given - Provider: Narcisa davis RN)2055 (Given - Provider: Lakshmi Nelson RN) 821 (Given - Provider: Kelsy Mujica, SHARON) 5 mL, Intravenous, 2 TIMES DAILY, First dose on Thu10/15/21 at 2100, Until Discontinued, Routine sulfamethoxazole-trimethoprim DS (Bactrim DS) 800-160 mg per tab let 1 tablet 1 tablet, Oral, DAILY, First dose on Thu11/21/21 at 0900, Until Discontinued, Recommended dose: 1 tablet daily. If ANC is less than 500 / mm^3 and / or Platelets are less than 20,000 / mm^3 without trans fusion on Day (+ 30), do NOT start sulfa methoxazole/trimethoprim; instead consider atovaquone, dapsone, or pentamidine., Routine supersaturated calcium phosphate (Caphosol) oral solut ion 30 mL 0809 (Given - Provider: Denise Madera RN)1348 (Given - Provider: Denise Madera RN)1832 (Given - Provider: Denise Madera RN)202 (Given - Provider: Yvette Pichardo RN) 0850 (Given - Provider: Narcisa Suggs, SHARON)1207 (Given - Provider: Narcisa Suggs, SHARON)1758 (Given - Provider: Narcisa Suggs, RN)210 (Given - Provider: Lakshmi Nelson, RN) 0809 (Given - Provider: Kelsy Mujica, SHARON)1300 (Due) 30 mL, Oral, 4 TIMES DAILY, First dose o n 10/15/21 at 1715, Until Discontinued, Given four times per day starting on admission and continuing until resolution of mucositis AND ANC is greater than 500 /mm^3 for 2 days.. Mix 1 blue and 1 romelia r ampule together in a glass. Swish with half of the liquid for ONE full minute. Expectorate. Swish again with the other half for another full minute. Expectorate., Routine tacrolimus (Prograf) capsule 1 mg 2025 (Given - Provider: Dea Pichardo RN) 2048 (Given - Provider: Lakshmi Nelson, SHARON) 1 mg, Oral, NIGHTLY, First dose on Kassy at 2100, Until Discontinued, DO NOT SPLIT, CRUSH OR OPEN, Routine tacrolimus (Prograf) capsule 1.5 mg 0811 (Given - Provider: Denise Madera RN) 0851 (Given - Provider: Narcisa Sgugs, SHARON) 0809 (Given - Provider: Kelsy Mujica, SHARON) 1.5 mg, Oral, DAILY, First dose on Thu at 0900, Until Discontinued, DO NOT SPLIT, CRUSH OR OPEN, Routine ursodiol (Actigall) (60 mg/mL) oral liquid 300 mg 0818 (Given - Provider: Denise Madera RN) 0850 (Given - Provider: Narcisa Suggs, SHARON) 0809 (G iven - Provider: Kelsy Mujica, SHARON) 300 mg, Oral, DAILY WITH BREAKFAST, 21 d oses, First dose on Thu11/02/21 at 0800, Last dose on Thu11/22/21 at 0800, For VOD prophylaxis day (-7) through day (+30), Routine ursodiol (Actigall) (60 mg/mL) oral liquid 600 mg 1800 (Given - Provider: Denise Madera RN) 1758 (Given - Provider: Narcisa Suggs RN) 600 mg, Oral, DAILY WITH DINNER, 21 dose s, First dose on Thu11/01/21 at 1715, Last dose on Thu11/21/21 at 1700, For VOD prophylaxis day (-7) through day (+30), Routine vancomycin (Vancocin) capsule 125 mg 08 (Given - Pro vider: Denise Madera RN)2025 (Given - Provider: Yvette Pichardo RN) 0851 (Given - Provider: Narcisa Suggs RN)2054 (Given - Provider: Lakshmi Nelson, SHARON) 0809 (Given - Provider: Kelsy Mujica, SHARON) 125 mg, Oral, 2 TIMES DAILY, First dose on Thu10/15/21 at 2100, Until Discontinued, Routine Continuous Medication Order 11/16/2021 11/17/2021 11/18/2021 lactated ringers infusion 1756 (New Bag - Provid er: Narcisa Suggs RN) 0020 (New Bag - Provider: Lakshmi Nelson, SHARON)0735 (Stopped - Provider: Pati Gilbert RN) 150 mL/hr, Intravenous, CONTINUOUS, Star ting on 11/17/21 at 1800, Until 11/18/21 at 0559 PRN Medication Order 11/16/2021 11/17/2021 11/18/2021 acetaminophen (Tylenol) (32.02 mg/mL) oral liquid 975 mg 975 mg, Oral, EVERY 8 HOURS PRN, Startin g on Kassy 10/31/21 at 0355, Until 11/18/21 at 1628, Pain, Maximum dose of acetaminophen is 4000 mg from all sources in 24 hours. When ordered for pain, acetaminop hen should be given even when other orde red pain medications are indicated. , Routine alum-mag hydroxide-simeth (Maalox) (40 mg-40 mg-4 mg/mL) oral li quid 10 mL 10 mL, Oral, 3 TIMES DAILY PRN, Starting on Thu10/28/21 at 1012, Until Thu11/18/21 at 1628, Heartburn, Routine calcium carbonate (Tums) chewable tablet 500 mg 500 mg, Oral, 4 TIMES DAILY PRN, Startin g on Thu10/27/21 at 1445, Until Thu11/18/21 at 1628, Heartburn, Routine camphor-menthoL (Sarna) lotion Topical (Top), 3 TIMES DAILY PRN, Itchin g, Starting on Thu10/30/21 at 0418, Until Thu11/18/21 at 1628 diphenhydrAMINE/aluminum-magnesium hydro xide with simethicone/lidocaine (BMX) (6.67 mg-0.83 mg-13.33 mg-1.33 mg/mL) oral liquid 5 mL 5 mL, Oral, 4 TIMES DAILY PRN, Starting on Thu11/11/21 at 0930, Until Thu11/18/21 at 1628, For mucositis pain, Each 5 mL contains equal parts of diphenhydramine (BENADYL), aluminum-magnesium hydroxide w/ simethicone (MAALOX), and lidocaine (XYLOCAINE) , Routine furosemide (Lasix) (10 mg/mL) injection 60 mg 60 mg, Intravenous, DAILY PRN, Starting on Thu10/18/21 at 0947, Until Thu11/18/21 at 1628, for weight gain greater than 1 kg above admission baseline, HOLD if SBP is less than 90 mmHg prior to furosemide administration. DO NOT give furosemide in AM of day (0). furosemide (Lasix) (10 mg/mL) injection 60 mg 60 mg, Intravenous, 2 TIMES DAILY PRN, S tarting on Thu10/18/21 at 0948, Until Thu11/18/21 at 1628, for weight gain greater than 1 kg over 12 hours or input exceeding output by greater than 1,000 mL per 12 hours, HOLD if SBP is less than 90 mmHg prior to furosemide administration. DO NOT give furosemide in AM of day (0). heparin (pf) (porcine) (100 units/mL) flush 5 mL syringe 500 Uni ts 500 Units, Intravenous, ONCE PRN, Starti ng on Thu10/15/21 at 1622, Until Thu11/18/21 at 1628, Line Care, Refer to Intravenous (IV) Procedure: Accessing Implanted Vascular Access Devices (654) procedure and/or Intravenous (IV) Job Aid: Adult Flushing & Catheter Care (8555) job aid for additional information regarding guidelines and administration., Routine lidocaine (Xylocaine) 1% (10 mg/mL) injection 3 mg 3 mg (0.3 mL), Subcutaneous, ONCE PRN, 1 dose, Starting on Thu10/15/21 at 1600, Until Thu11/18/21 at 1628, for discomfort with PIV insertion, Routine lidocaine (Xylocaine) 2 % viscous solution 15 mL 15 mL, Mucous Membrane, EVERY 4 HOURS CO N, Starting on Thu11/06/21 at 1230, Until Thu11/18/21 at 1628, pain, Swallow prior to meals for mucositis pain, Routine loperamide (Imodium A-D) capsule 2 mg 2 mg, Oral, 3 TIMES DAILY PRN, Starting on Thu10/29/21 at 1300, Until Thu11/18/21 at 1628, Diarrhea, Do not exceed 16 mg/day., Routine LORazepam (Ativan) (2 mg/mL) injection 0.5 mg 0.5 mg, Intravenous, EVERY 4 HOURS PRN, Starting on Thu10/15/21 at 1622, Until Thu11/18/21 at 1628, Anxiety, Nausea, May repeat once in 30 minutes if prior dose is ineffective. One repeat dose may be give n within each 4-hour interval. If mult iple antiemetics are ordered, use in the following sequence: Ondansetron>Prochlorperazine or Promethazine>Lorazepam>Metoclopramide, Routine magnesium sulfate 1 g in dextrose 5% 100 mL infusion 1 g, Intravenous, EVERY 1 HOUR PRN, Star ting on Thu11/01/21 at 0957, Until Thu11/18/21 at 1628, Administer over 60 Minutes, HSCT Electrolyte Replacement, Please consider using oral supplementation when ever possible If serum magnesium is be tween 0.51 - 0.69 mMol/L, give a total of 4 grams of magnesium sulfate as follows: magnesium sulfate 2 grams IV infused over 2 hours for 2 doses. If serum magnesi um is less than or equal to 0.5 mMol/L, notify dimension warehouse supervisor and give 5 grams of magnesium sulfate as follows: magnesium sulfate 2 grams IV infused over 2 hours for 2 doses followed by magnesium sulfate 1 gram IV infused over 1 hour once. Dis continue these orders and have dimension warehouse supervisor order electrolytes if serum creatinine is greater than or equal to 1.7 mg/dL or if patient is receiving parenteral nutrition. magnesium sulfate 2 g in sterile water 50 mL infusion 2 g, Intravenous, EVERY 2 HOURS PRN, Sta rting on Thu11/01/21 at 0957, Until Thu11/18/21 at 1628, Administer over 120 Minutes, HSCT Electrolyte Replacement, Please consider using oral supplementation wh enever possible If serum magnesium is between 0.51 - 0.69 mMol/L, give a total of 4 grams of magnesium sulfate as follows: magnesium sulfate 2 grams IV infused over 2 hours for 2 doses. If serum magne sium is less than or equal to 0.5 mMol/L , notify dimension warehouse supervisor and give 5 grams of magnesium sulfate as follows: magnesium sulfate 2 grams IV infused over 2 hours for 2 doses followed by magnesium sulfa te 1 gram IV infused over 1 hour once. D iscontinue these orders and have dimension warehouse supervisor order electrolytes if serum creatinine is greater than or equal to 1.7 mg/dL or if patient is receiving parenteral nutrition. morphine (4 mg/mL) injection 4 mg 4 mg, Intravenous, EVERY 4 HOURS PRN, St arting on Thu11/11/21 at 0930, Until 11/18/21 at 1628, Pain, Routine ondansetron (pf) (Zofran) (2 mg/mL) injection 8 mg 081 8 (Given - Provider: Denise Madera RN) 8 mg, Intravenous, EVERY 8 HOURS PRN, St arting on Thu10/19/21 at 0900, Until 11/18/21 at 1628, Nausea, Vomiting, Beginning on Day (-3). Maximum dose 32 mg per day. If multiple antiemetics are ordered , use in the following sequence: Ondanse sue>Prochlorperazine or Promethazine>Lorazepam>Metoclopramide potassium chloride 20 mEq in sterile water 100 mL infusion 20 mEq, Intravenous, EVERY 1 HOUR PRN, S tarting on Thu11/01/21 at 0957, Until Thu11/18/21 at 1628, Administer over 60 Minutes, HSCT Electrolyte Replacement, If serum potassium is between 3.5 to 4 mMol/L give Potassium Chloride 20 mEq/100 mL IV over one hour for 2 doses if unable to take orally. If serum potassium is between 3 to 3.4 mMol/L give Potassium Chloride 20 mEq/100 mL IV over 1 hour for 4 dose s if unable to take orally. If serum pot assium is less than or equal to 2.9 mMol/L, notify dimension warehouse supervisor and give Potassium Chloride 20 mEq/100 mL IV over 1 hour for 5 doses. Discontinue these orders an d have dimension warehouse supervisor order electrolytes if serum creatinine is greater than or equal to 1.7 mg/dL or if patient is receiving parenteral nutrition. potassium chloride ER (K-Dur/Klor-Con) tablet 20 mEq 20 mEq, Oral, EVERY 4 HOURS PRN, Startin g on Thu11/01/21 at 0957, Until Thu11/18/21 at 1628, HSCT Electrolyte Replacement, If serum potassium is between 3.5 to 4 mMol/L give potassium chloride 20 mEq Ext ended Release orally for 2 doses. May gi ve IV if unable to take orally. Discontinue these orders and have dimension warehouse supervisor order electrolytes if serum creatinine is greater than or equal to 1.7 mg/dL or if patient is receiving parenteral nutrition., Routine potassium chloride ER (K-Dur/Klor-Con) tablet 40 mEq 40 mEq, Oral, EVERY 4 HOURS PRN, Startin g on Thu11/01/21 at 0957, Until Thu11/18/21 at 1628, HSCT Electrolyte Replacement, If serum potassium is between 3 to 3.4 mMol/L, give Potassium Chloride 40 mEq Ex tended Release by mouth for 2 doses. May give IV if unable to take orally. Discontinue these orders and have dimension warehouse supervisor order electrolytes if serum creatinine is greater than or equal to 1.7 mg/dL or if patient is receiving parenteral nutrition., Routine prochlorperazine (Compazine) (5 mg/mL) injection 10 mg 10 mg, Intravenous, EVERY 6 HOURS PRN, S tarting on Thu10/15/21 at 1622, Until Thu11/18/21 at 1628, Nausea, Vomiting, If multiple antiemetics are ordered, use in the following sequence: Ondansetron>Pr ochlorperazine or Promethazine>Lorazepam>Metoclopramide, Routi ne sodium chloride 0.9 % (flush) (BD PosiFlush Normal Saline 0.9) f lush 10 mL 10 mL, Intravenous, DAILY PRN, Starting on Thu11/04/21 at 1923, Until Thu11/18/21 at 1628, For use when accessing Implantable Port, Routine sodium chloride 0.9 % (flush) (BD PosiFlush Normal Saline 0.9) f lush 5-20 mL 5-20 mL, Intravenous, EVERY 1 MIN PRN, S tarting on Thu10/15/21 at 1600, Until Thu11/18/21 at 1628, flush, Flush pertains to all indwelling lines. Flush per protocol found in the job aid using the link provided on this medication record., Routine sodium chloride 0.9 % (flush) (BD PosiFlush Normal Saline 0.9) f lush 5-20 mL 5-20 mL, Intravenous, EVERY 1 MIN PRN, S tarting on Thu10/15/21 at 1622, Until Thu11/18/21 at 1628, Line Care, Flush pertains to all indwelling lines. Flush per protocol found in the job aid using the link provided on this medication record. Ref er to Intravenous (IV) Job Aid: Adult Flushing & Catheter Care (6789) job aid for additional information regarding guidelines and administration., Routine sucralfate (Carafate) (100 mg/mL) oral liquid 1 g 1 g, Oral, 4 TIMES DAILY PRN, Starting o n 10/27/21 at 1437, Until Thu11/18/21 at 1628, heartburn, Routine documented in this encounter Additional Health Concerns Infection Onset Date Last Indicated Resolved Time History of C. difficileComment: C. 08/20/2021 08/20/2021 diffiicile testing positive 05/25/21. Rule Out C. difficile 10/19/2021 10/19/2021 10/19/2021 4:07 PM EST Rule Out C. difficile 10/28/2021 10/28/2021 10/28/2021 1:34 PM EDT Rule Out C. difficile 11/09/2021 11/09/2021 11/09/2021 3:48 PM EDT documented as of this encounter Care Teams Probation Supervisor Relationship Specialty Start Date End Date Beatriz Maurice PA PCP - General Family Medicine 05/06/21 [address] [place] [address] documented as of this encounter
--- OUTSIDE RECORDS SUMMARY | 2022-02-14 11:13 | XMS_ITS | Encounter Summary ---
:1960 Author Organization [facility] Address [address] [place] [address] Care Team Providers Name Role Phone Beatriz Maurice Primary Care Provider Reason for Visit Reason Comments Specialty Pharmacy Review Venclexta tablet Encounter Details Date Type Department Care Team Description 11/11/2021 [place] [facility] [place] Review ([address] tablet/) [place] [id number] Social History Tobacco Use Types Packs/Day Years [...] this encounter Progress Notes Izzy Hernandez - 11/11/2021 11:59 PM EDT The - Specialty Pharmacy has completed a benefits investigation for Herber Iverson Jr. to review their eligibility to fill at [facility]. Per patient's medication list they are prescribed Venclexta 100mg tablet and the medication is not able to be filled at [facility]. Patient is not on targeted therapy. documented in this encounter Plan of Treatment Upcoming Encounters Date Type Specialty Care Team Description 02/18/2022 Infusion Hematology and Oncology 02/21/2022 Infusion Hematology and Oncology 02/24/2022 Appointment Hematology and Oncology 02/24/2022 Office Visit Hematology and Oncology Parviz Modi MD [facility] DR HEMATOLOGY/[place] [address] Miroslava Pelayo APRN [facility] DR HEMATOLOGY/[place] [address] 02/24/2022 Office Visit Wound Care 02/24/2022 Appointment Hematology and Oncology 02/26/2022 Office Visit Neurology Leni Bustamante MD [facility] DR NEUROLOGY DEPT. [place], [place] [address] (Wo rk) documented as of this encounter Visit Diagnoses Not on filedocumented in this encounter Additional Health Concerns Infection Onset Date Last Indicated Resolved Time History of C. difficileComment: C. diffiicile 08/20/2021 testing positive 05/25/21. documented as of this encounter Care Teams Reagent Tender Relationship Specialty Start Date End Date Beatriz Maurice PA PCP - General Family Medicine 05/06/21 [address] [place] [address] documented as of this encounter
--- OUTSIDE RECORDS SUMMARY | 2022-02-14 11:13 | XMS_ITS | Encounter Summary ---
:1960 Author Organization [facility] Address [address] [place] [address] Care Team Providers Name Role Phone AjithBeatriz patricia Primary Care Provider Reason for Visit Reason Comments Specialty Pharmacy Review Xospata tablet Encounter Details Date Type Department Care Team Description 11/11/2021 Specialty Pharmacy Pharmacy at [facility] [place] Izzy Hernandez [facility] Review ([address] tablet/) [place] [id number] Social History Tobacco Use Types Packs/Day Years [...] to review their eligibility to fill at [facility]. Per patient's medication list they are prescribed Xospata 40 mg tablet and the medication is not able to be filled at the [facility]. Patient is not on targeted therapy. documented in this encounter Plan of Treatment Upcoming Encounters Date Type Specialty Care Team Description 02/18/2022 Infusion Hematology and Oncology 02/21/2022 Infusion Hematology and Oncology 02/24/2022 Appointment Hematology and Oncology 02/24/2022 Office Visit Hematology and Oncology Parviz Modi MD [facility] DR HEMATOLOGY/[place] [address] Miroslava Pelayo APRN [facility] DR HEMATOLOGY/[place] [address] 02/24/2022 Office Visit Wound Care 02/24/2022 Appointment Hematology and Oncology 02/26/2022 Office Visit Neurology Leni Bustamante MD [facility] DR NEUROLOGY DEPT. [place], [place] [address] (Wo rk) documented as of this encounter Visit Diagnoses Not on filedocumented in this encounter Additional Health Concerns Infection Onset Date Last Indicated Resolved Time History of C. difficileComment: C. diffiicile 08/20/2021 testing positive 05/25/21. documented as of this encounter Care Teams Marine Design Engineer Relationship Specialty Start Date End Date Beatriz Maurice PA PCP - General Family Medicine 05/06/21 [address] [place] [address] documented as of this encounter
--- OUTSIDE RECORDS SUMMARY | 2022-02-14 11:14 | XMS_ITS | Encounter Summary ---
:1960 Author Organization [facility] [place] [address] Care Team Providers Name Role Phone Beatriz Maurice Primary Care Provider Encounter Details Date Type Department Care Team Description 10/08/2021 Telephone Hematology and Oncol ogy at [facility] [place] Qi Zambrano, [place] [phone] Social History Tobacco Use Types Packs/Day [...] Telephone Encounter - Qi Zambrano RN - 10/08/2021 12:55 PM EST RN called [id number] to confirm that per Annika HERRERA TCT note, patient's Xospata is now on hold effective 10/08. Spoke with pharmacist Siddharth. documented in this encounter Plan of Treatment Upcoming Encounters Date Type Specialty Care Team Description 02/18/2022 Infusion Hematology and Oncology 02/21/2022 Infusion Hematology and Oncology 02/24/2022 Appointment Hematology and Oncology 02/24/2022 Office Visit Hematology and Oncology Parviz Modi MD [facility] DR HEMATOLOGY/[place] [address] Miroslava Pelayo APRN [facility] DR HEMATOLOGY/[place] [address] 02/24/2022 Office Visit Wound Care 02/24/2022 Appointment Hematology and Oncology 02/26/2022 Office Visit Neurology Leni Bustamante MD [facility] DR NEUROLOGY DEPT. [place], [place] [address] (Wo rk) documented as of this encounter Visit Diagnoses Not on filedocumented in this encounter Additional Health Concerns Infection Onset Date Last Indicated Resolved Time History of C. difficileComment: C. diffiicile 08/20/2021 testing positive 05/25/21. documented as of this encounter Care Teams Sales And Retail Management Recruiter Relationship Specialty Start Date End Date Beatriz Maurice PA PCP - General Family Medicine 05/06/21 [address] [place] [address] documented as of this encounter
--- OUTSIDE RECORDS SUMMARY | 2022-02-14 11:14 | XMS_ITS | Encounter Summary ---
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 [facility] [place] [address] [place] [address] Phone: Fax: Referral ID Status Reason Start Date Expiration Date Visits V isits Requested Authorized [id number] Closed Consult, 10/03/2021 10/03/2022 1 1 Test & Treat Encounter Details Date Type Department Care Team Description 10/03/2021 Orders Only Hematology and Parviz Modi Double vision (Primary Dx); Oncology at [facility] MD Mars Acute leukemia not having achieved remis sharon; [facility] ELVA LUX Stem cell transplant candidate Drive HEMATOLOGY/ONCOLOGY [place] DEPT. [id number] [place] [address] [phone] (Wo rk) Social History Tobacco Use Types [...] Hematology and Oncology Parviz Modi MD [facility] DR HEMATOLOGY/[place] [address] Miroslava Pelayo APRN [facility] DR HEMATOLOGY/[place] [address] 02/24/2022 Office Visit Wound Care 02/24/2022 Appointment Hematology and Oncology 02/26/2022 Office Visit Neurology Leni Bustamante MD [facility] NEUROLOGY DEPT. [place], [place] [address] (Wo rk) Scheduled Referrals Name Type Priority Associated Order Schedule Diagnoses Referral to Outpatient Referral Routine Double visio n Ordered: Ophthalmology Acute leukemia not 10/03/19 22 having achieved remission Stem cell transplant candidate documented as of this encounter Visit Diagnoses Diagnosis Double vision - Primary Diplopia Acute leukemia not having achieved remis sharon Acute leukemia of unspecified cell type, without mention of having achieved remission Stem cell transplant candidate documented in this encounter Additional Health Concerns Infection Onset Date Last Indicated Resolved Time History of C. difficileComment: C. diffiicile 08/20/2021 testing positive 05/25/21. documented as of this encounter Care Teams Household Worker Relationship Specialty Start Date End Date Beatriz Maurice PA PCP - General Family Medicine 05/06/21 [address] [place] [address] documented as of this encounter
--- OUTSIDE RECORDS SUMMARY | 2022-02-14 11:14 | XMS_ITS | Encounter Summary ---
:1960 Author Organization [facility] [place] [address] Care Team Providers Name Role Phone Beatriz Maurice Primary Care Provider Encounter Details Date Type Department Care Team Description 09/27/2021 Telephone Hematology and Oncology [place] [phone] Social History Tobacco Use Types Packs/Day [...] Telephone Encounter - Nichelle Barnard MSW - 09/27/2021 10:57 AM EST COLE-JENNIFER applied by phone today for LLS Co-pay Assistance Program for AML on Herber's behalf today and he was awarded $10,000. It is retroactive to 06/29/21 and expires on 09/27/22. This will be particularly helpful to him in paying back insurance premium arrears when he goes back to work. 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 SW Intervention: Financial resources documented in this encounter Plan of Treatment Upcoming Encounters Date Type Specialty Care Team Description 02/18/2022 Infusion Hematology and Oncology 02/21/2022 Infusion Hematology and Oncology 02/24/2022 Appointment Hematology and Oncology 02/24/2022 Office Visit Hematology and Oncology Parviz Modi MD [facility] DR HEMATOLOGY/[place] [address] Miroslava Pelayo APRN [facility] [address] HEMATOLOGY/[place] [address] 02/24/2022 Office Visit Wound Care 02/24/2022 Appointment Hematology and Oncology 02/26/2022 Office Visit Neurology Leni Bustamante MD [facility] NEUROLOGY DEPT. [place], [place] [address] (Wo rk) documented as of this encounter Visit Diagnoses Not on filedocumented in this encounter Additional Health Concerns Infection Onset Date Last Indicated Resolved Time History of C. difficileComment: C. diffiicile 08/20/2021 testing positive 05/25/21. documented as of this encounter Care Teams Administrative Volunteer Relationship Specialty Start Date End Date Beatriz Maurice PA PCP - General Family Medicine 05/06/21 [address] [place] [address] documented as of this encounter
--- OUTSIDE RECORDS SUMMARY | 2022-02-14 11:14 | XMS_ITS | Encounter Summary ---
:1960 Author Organization [facility] Address [facility] [place] [address] Care Team Providers Name Role Phone Beatriz Maurice Primary Care Provider Reason for Visit Reason Comments Follow-up Encounter Details Date Type Department Care Team Description 10/04/2021 Office Visit Hematology and Radha Modi MD [facility] DR HEMATOLOGY/[place] [address] Acute myeloid leukemia in remission (Radha justin Dx); Oncology at [facility] [place] Hayley Palmer APRN [facility] DR HEMATOLOGY-[place] [address] Acute myeloid leukemia not having achiev ed remission; [facility] Annika Geller RN Anemia, unspecified type; Drive [facility] [place], [place] [address] [place] [phone] Social History Tobacco Use Types Packs/Day [...] Sign Reading Time Taken Comments Blood Pressure 124/87 10/04/2021 10:16 AM EST Pulse 98 10/04/2021 10:16 AM EST Temperature 36.8 ??C (98.2 ??F) 10/04/2021 10:16 AM EST Respiratory Rate 20 10/04/2021 10:16 AM EST Oxygen Saturation 99% 10/04/2021 10:16 AM EST Inhaled Oxygen Concentration - - Weight 107.2 kg (236 lb 6.4 oz) 10/04/2021 10:16 AM EST Height 180.2 cm (5' 10.95) 10/04/2021 10:16 AM EST Body Mass Index 33.02 10/04/2021 10:16 AM EST documented in this encounter Progress Notes Dilshad Modi MD - 10/04/2021 10:30 AM EST HEMATOLOGY/BMT CONSULTATION VISIT NOTE CHIEF COMPLAINT: Herber Iverson Jr. is a 61 y.o. male originally referred by Dr. Beatriz Maurice for evaluation of leukemia. He is seen in follow-up today. Data Review (From Recent Hospital discharge summary and the EMR) Admitted to [facility] 04/29/21 for leukocytosus. Discharged 04/30/21. 04/30/21 CBC - 40.7/8.1/20 ANC - 3,210 [...] [place] [address]/10,000 ABL1 copies (135.80%.) 08/08/21 Discharged after reinduction with gilteritinib and venetoclax and initial clearance of MAINTENANCE WORKER leukemia. 08/12/21 LP - FELY 08/26/21 LP [...] Evaluation Indication for Transplant - Flt3 POS, MAINTENANCE WORKER POS, relapsed AML now in remission. Cardiac Echo - LVEF 55-60%, NRWMAs (10/02/21) EKG - NSR, no abnormalities (09/24/21) CXR - other than possibe slight atelectasis, no abnormality (10/04/21) BM BX - FELY (09/12/21) LP - FELY (09/27/21) BM CG - 46XY () PFTs - FVC 105%, FeV1 113%, DLCO 104% (Dinikara correction, Hb 9.4) Colonoscopy - deferred given large bowel resection Creatinine - 1.18, estimated GFR - 66 (09/27/21). 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 dates the onset of his illness to earlier this summer. He has felt more tired than usual but attributed it to the humidity. About 3 weeks ago his fatigue was so bad that he went to a clinic in [facility]. He was evaluated for a UTI that was negative. 1 week ago today he saw his PCPwho ended up gatting a CBC showing abnormal counts and he was admitted to [facility]. Other than fatigue has had no fevers, chills or drenching sweats. Has lost a few lbs - <10. Appetite has been down recently. No bleeding or bruising. Was very actived when younger - played a lot of sports into his 40's. 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 He is now at day approximately +65 (10/04/21) of venetoclax plus gilteritinib therapy (day 1 ~07/31/2021). His most recent LP was 09/27 and BM Bx 09/12 and both showed no evidence of disease. Recent NPM1 MRD determinations shows 99% reduction - now at 1.95%. Herber is seen today to review recent restaging evaluation and plans for admission for his MUD HSCT. As above, he has completed his pre-transplant evaluation and there are no contriandications to proceeding as planned. 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 Social - has a girlfriend and his [...] DAILY ??? Colostomy Belt (Ostomy Belt Medium) [facility] Disp[place] 1 Sensura [place] Belt #9483 per month. ??? famotidine (PEPCID) 40 mg, Oral, DAILY ??? flecainide (TAMBOCOR) 50 mg, Oral, 2 TIMES DAILY ??? gilteritinib (XOSPATA) 120 mg, Oral, DAILY, Call clinic before starting medication. ??? levoFLOXacin (LEVAQUIN) 750 mg, Oral, DAILY ??? loperamide (IMODIUM A-D) 2 mg, Oral, 3 TIMES DAILY ??? metoprolol succinate XL (TOPROL-XL) 50 mg, Oral, DAILY ??? Ostomy Supplies Misc Dispense 2 boxes ( 10/box) of [employer] Barrier rings #7805 per month. ??? Ostomy Supplies Misc Dispense 2 boxes (10/box) of Sensura Flako Soft Convex One-piece Pouch #10583vch month. ??? Ostomy Supplies Misc Dispense 2 boxes (20/box) of Brava Elastic Barrier strips #[id number] per month. ??? Ostomy Supplies Misc Dispense 1 box (50/box) of a generic no-sting skin barrier wipe per month. ??? Ostomy Supplies Powder Dispense 1 bottle of Adapt stoma powder #7906 every other month. ??? sulfamethoxazole-trimethoprim DS (Bactrim DS) 800-160 mg [...] Artificial Sweetners-lightheadedness, dizziness PHYSICAL EXAM VITAL SIGNS: Blood pressure 124/87, pulse 98, temperature 36.8 ??C (98.2 ??F), temperature source Temporal, resp. rate 20, height 180.2 cm (5' 10.95), weight 107.2 kg (236 lb 6.4 oz), SpO2 99 %. GENERAL: Herber Iverson Jr. is a well-appearing [...] Recent Results (from the past 72 hour(s)) Comprehensive metabolic panel (non-fasting) Result Value Ref Range Glucose Lvl 85 65 - 199 mg/dL BUN 24 (H) 10 - 20 mg/dL Creatinine 1.31 0.80 - 1.50 mg/dL Sodium 140 135 - 145 mmol/L Potassium 4.8 3.5 - 5.0 mmol/L Chloride 110 (H) 98 - 107 mmol/L CO2 18 (L) 22 - 31 mmol/L Anion Gap 12 5 - 15 mmol/L Calcium 9.5 8.5 - 10.5 mg/dL Total Protein 7.6 6.1 - 8.0 g/dL Albumin 4.2 3.2 - 5.2 g/dL AST 53 (H) 0 - 39 unit/L ALT 56 (H) 0 - 55 unit/L Alk Phos 114 40 - 130 unit/L Total Bilirubin <0.2 (L) 0.2 - 1.3 mg/dL Estimated GFR 58 (L) >=60 mL/min/1.73 m?? Hemogram Result Value Ref Range WBC 3.7 (L) 4.0 - 9.5 x10(3)/mcL RBC 2.73 (L) 4.58 - 5.54 x10(6)/mcL Hemoglobin 9.4 (L) 13.7 - 16.5 g/dL Hematocrit 28.7 (L) 40.5 - 48.5 % MCV 105.1 (H) 82.9 - 93.1 fL MCH 34.4 (H) 27.5 - 32.1 pg MCHC 32.8 32.0 - 35.7 g/dL Platelets 139 (L) 145 - 357 x10(3)/mcL RDWSD 89.0 (H) 36.0 - 45.0 fL RDWCV 24.7 (H) 11.4 - 13.8 % MPV 10.8 7.6 - 12.9 fL nRBC % Auto 1.1 % nRBC Abs Auto 0.040 (H) 0.000 - 0.000 x10(3)/mcL Differential, Automated Result Value Ref Range Neutrophils % 65.4 % Neutr Abs (ANC) 2.42 1.70 - 6.10 x10(3)/mcL Lymphocytes % 20.5 % Lymphocytes Abs 0.8 (L) 0.9 - 3.2 x10(3)/mcL Monocytes % 13.0 % Monocyte Abs 0.5 0.3 - 0.9 x10(3)/mcL Eosinophils % 0.0 % Eosinophils Abs 0.0 0.0 - 0.4 x10(3)/mcL Basophils % 0.0 % Basophils Abs 0.0 0.0 - 0.1 x10(3)/mcL Immature Gran % 1.10 % Zara Gran Abs 0.04 0.00 - 0.04 x10(3)/mcL Antibody screen Result Value Ref Range Expires at 2359 on: 10/07/2021 ABORH Recheck Status Result Value Ref Range ABORH Type Recheck Completed Pulmonary Function Testing Result Value Ref Range FVC Actual Pre-BD 4.83 L FVC Pre-BD % of Predicted 105 % FVC Predicted 4.59 L FVC Pre-BD Z-Score 0.36 FVC Lower Limits of Normal 3.49 L FEV1 Actual Pre-BD 4.00 L FEV1 Pre-BD % of Predicted 113 % FEV1 Predicted 3.54 L FEV1 Pre-BD Z-Score 0.90 FEV1 Lower Limits of Normal 2.66 L FEV1 / FVC Actual Pre-BD 83 % FEV1/FVC Pre-BD Z-Score 0.91 FEV1 / FVC LLN 65 % [id number] Actual Pre-BD 3.76 L/s [id number] Pre-BD % of Predicted 129 % [id number] Predicted 2.92 L/s [id number] Pre-BD Z-Score 0.73 DLCO Hb Actual Pre-BD 18.75 mL/min/mmHg DLCO Hb Pre-BD % of Predicted 68 % DLCO Hb Pre-BD Z-Score -2.12 DLCO Hb Predicted 27.41 mL/min/mmHg DLCO UNC ACT PRE-BD 16.86 mL/min/mmHg DLCO UNC PRE-BD % of PRED 62 % DLCO UNC PRE-BD Z-SCORE -2.66 % DLCO UNC Predicted 27.41 mL/min/mmHg DLCO/VA Actual Pre-BD 2.92 mL/min/mmHg/L DLCO/VA Pre-BD % of Predicted 69 % DLCO/VA Pre-BD Z-Score -2.13 DLCO/VA Predicted 4.24 mL/min/mmHg/L Six minute walk in Meter 396 m Six minute walk in Feet 1,299 ft RADIOLOGY - None ASSESSMENT & PLANS 1. Flt3+ AML --Herber initially achieved CR with 7&3 + midostauren but subsequently relapsed but has now re-achied remission with Zospata, venetoclax and multiple rounds ot IT chemotherapy. --Pre-transplant BM Bx and LP show FELY. --The plan is to now move ahead to allogeneic stem cell transplant. 2. Allo HSCT --Because Herber is POS for Flt3 mutation, he is at high risk for relapse and has an overall poor prognosis. Current plan is to get him to allo H SCT. No apparent contraindications. Donor search has produced multiple acceptable donors. We have selected 1 of these to go to work up next week. The second donor has been identified to keep in reserve. The earliest the donor will be able to donate is October 14. We will therefore tentatively plan on admission for transplant on October 15. 3. S/P Colectomy --Herber's colostomy has been functioning well so far will need f/u with Surgery - not yet scheduled. 4. Counseling --Today, we spent the majority of the visit reviewing Herber's results from his most recent bone marrow biopsy and lumbar puncture and that these good results have cleared the way to move to allogeneic stem cell transplant. We then reviewed the pretransplant evaluation that he has had so far and that there are no contriandications to proceeding. Next, we again went through what to expect during stem cell transplant process including pretransplant chemotherapy, stem cell infusion, period of neutropenia, count recovery and requirements for discharge to home. We discussed risks associated with the preoperative chemotherapy, that serious or even life-threatening complications could occur during the transplant process including infection, bleeding, the no occlusive disease, hyper acute lljjd-vgjucx-deznzhxtuhq and adverse effects to other organ function. We also discussed that it would be many weeks to months before he regained his full strength after the transplant and that he would remain at risk of developing infection, uqfrx-nlregq-ucst disease and other potential complications from the transplant. We also discussed that failure of engraftment and leukemia recurrence were additional possible outcomes. Herber also reviewed the informed consenting documents with Annika Geller RN and mo. At the end of this discussion we both signed the documents. Finally, we discussed the tentative timing of his admission for transplant (admission on 10/15/21) and what the transplant would entail. Also discussed no typenol the week prior to admission and stopping of chemo as below. 5. Summary of Plans --Has achieved in FELY on current regimen. Continue venetoclax plus Xospata until ThursdayOct 08 - confirmed plan with Herber --Will consider Xospata maintenance after HSCT. --Primary allogeneic stem cell donor approved. --Tentative plan for donor pheresis on October 14 and Herber's admission for transplant on October 15 with central line placement today. --Will see in clinic prior to planned admission. --Prescription for dilantin entered. --Herber to call any time if not feeling well or questions or concerns arise. TOTAL TIME OF VISIT: 50 minutes, including record review, the yhyd-pg-diid encounter, ordering and review of lab results, writing this note and communicating results and recommendations to the patient and his provider. Dilshad Modi MD Section of Hematology [facility] documented in this encounter Miscellaneous Notes Addendum Note - Dilshad Modi MD - 10/04/2021 10:30 AM EST Addended by: DILSHAD MODI on: 10/06/2021 12:07 PM Modules accepted: Orders documented in this encounter Plan of Treatment Upcoming Encounters Date Type Specialty Care Team Description 02/18/2022 Infusion Hematology and Oncology 02/21/2022 Infusion Hematology and Oncology 02/24/2022 Appointment Hematology and Oncology 02/24/2022 Office Visit Hematology and Oncology Dilshad Modi MD [facility] HEMATOLOGY/[place] [address] Miroslava Pelayo, PIPE BENDER [facility] HEMATOLOGY/[place] [address] 02/24/2022 Office Visit Wound Care 02/24/2022 Appointment Hematology and Oncology 02/26/2022 Office Visit Neurology Leni Bustamante MD [facility] NEUROLOGY DEPT. [place], [place] [address] (Wo rk) documented as of this encounter Visit Diagnoses Diagnosis Acute myeloid leukemia in remission - Pr imary Acute myeloid leukemia not having achiev ed remission Anemia, unspecified type H/O Clostridium difficile infection Personal history of other infectious and parasitic disease 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 status documented in this encounter Additional Health Concerns Infection Onset Date Last Indicated Resolved Time History of C. difficileComment: C. diffiicile 08/20/2021 testing positive 05/25/21. documented as of this encounter Care Teams Return To Vendor Relationship Specialty Start Date End Date Beatriz Maurice PA PCP - General Family Medicine 05/06/21 [address] [place] [address] documented as of this encounter
--- OUTSIDE RECORDS SUMMARY | 2022-02-14 11:14 | XMS_ITS | Encounter Summary ---
:1960 Author Organization [facility] Address [address] [place] [place] [address] Care Team Providers Name Role Phone Beatriz Maruice Primary Care Provider Reason for Visit Auth/Cert Specialty Diagnoses / Procedures Referred By Contact Refer red To Contact Diagnoses AML (acute myeloblastic leukemia) AML Procedures PRO DIAGNOSTIC BONE MARROW BIOPSIES & ASPIRATIONS (OSC MSURG) BONE MARROW BIOPSY AND ASPIRATION; DIAGNOSTIC Referral ID Status Reason Start Date Expiration Date Visits Requ ested Visits Authorized [id number] 1 1 Encounter Details Date Type Department Care Team Description 10/07/2021 Surgery Outpatient Surgery Parviz Modi, (OSC MSURG) BONE Center Latrice Perez MD MARROW BIOPSY AND [facility] ASPIRATION; DIAGNOSTIC [facility] HEMATOLOGY/[place] [address] [place] [address] [phone] (Wo rk) Social History Tobacco Use Types [...] Sign Reading Time Taken Comments Blood Pressure 115/83 10/07/2021 4:00 PM EST Pulse 73 10/07/2021 4:00 PM EST Temperature - - Respiratory Rate 16 10/07/2021 4:00 PM EST Oxygen Saturation 100% 10/07/2021 4:00 PM EST Inhaled Oxygen Concentration - - Weight - - Height - - Body Mass Index - - documented in this encounter Discharge Instructions Discharge InstructionsEvangelina Hightower RN - 10/07/2021 2:15 PM EST OUTPATIENT SURGERY POST-OPERATIVE INSTRUCTIONS BONE MARROW BIOPSY [...] 5pm or on a weekend: Call the [facility] burr machine operator at and ask for the physician data processing consultant covering for your doctor. Instructions following [...] drainage occurs, please [place] [address] [email or web address] Critical access hospital documented in this encounter Medications at Time [...] boxes 20 each 2 (10/box) of Sensura [place] Soft Convex One-piece Pouch #[id number] per month. Ostomy Supplies Misc Dispense 2 boxes 40 each 11 2 (20/box) of Brava Elastic Barrier strips #[id number] per month. Ostomy Supplies Misc Dispense 1 box (50/box) 50 each of a generic no-sting skin barrier wipe per month. lidocaine-prilocaine Apply to mediport 30 g 0 10/04/19 22 (EMLA) Cream approximately 30 minutes prior to access. enoxaparin (Lovenox) Inject 100 mg 0 0 11/18/2021 100 mg/mL Syringe subcutaneously daily. phenytoin (Dilantin) Take 8 tablets(400 mg) 14 tablet 0 11/18/2021 50 mg Tablet, at 9:00 AM and 6 Chewable tablets (300 mg) at 3:00 PM on October 15, 2021 acyclovir (Zovirax) Take 1 tablet by mouth 60 tablet 5 08/1711/18/2021 400 mg Tablet 2 times daily. levoFLOXacin Take 1 tablet by mouth 30 tablet 5 08/28/2021 11/18/2021 (Levaquin) 750 mg daily. Tablet vancomycin (Vancocin) Take 1 capsule by mouth 60 capsule 5 0 08/28/2021 11/18/2021 125 mg Capsule 2 times daily. metoprolol succinate Take 1 tablet by mouth 30 tablet 5 07/202211/18/2021 XL (Toprol-XL) 50 mg daily. Tablet Sustained Release 24 hr Colostomy Belt Dispense 1 Sensura [place] 1 each 2 12/13/2021 (Ostomy Belt Medium) Belt #[id number] per month. Misc loperamide (Imodium Take 1 capsule by mouth 90 tablet 0 11/18/2021 A-D) 2 mg Capsule 3 times daily. tamsulosin (Flomax) Take 1 capsule by mouth 90 tablet 0 11/18/2021 0.4 mg Capsule daily. flecainide (TAMBOCOR) Take 1 tablet by mouth 60 tablet 3 11/18/2021 50 mg Tablet 2 times daily. famotidine (Pepcid) Take 2 tablets by mouth 30 tablet 12 10/202011/22/2021 20 mg Tablet daily. venetoclax Take 1 tablet (100 mg) 30 tablet 5 09/13/2021 (Venclexta) 100 mg by mouth daily for 30 tabletIndications: days. Take with food acute myeloid and a large glass of leukemia water. Call clinic before starting medication. Indications: acute myeloid leukemia, a type of blood cancer sulfamethoxazole-trim Take 1 tablet by mouth 12 tablet 5 11/18/2021 ethoprim DS (Bactrim three times a week. DS) 800-160 mg Tablet gilteritinib Take 3 tablets (120 mg) 90 tablet 0 08/27/2021 12/13/2021 (Xospata) 40 mg by mouth daily. Call tabletIndications: clinic before starting acute myeloid medication. 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 All questions answered and written copy sent home with patient. documented in this encounter H&P Notes Hayley Palmer APRN - 10/07/2021 3:02 PM EST Pre-Sedation Assessment: Planned procedure: bone marrow biopsy Left Posterior Iliac Crest Indications: Disease Assessment Diagnosis: AML Assessment: Cardiovascular: Rhythm: Regular Rate: Normal Pulmonary: Breath sounds clear to auscultation ASA: 3: Patient with severe systemic disease Mallampati: II: tonsillar pillars are blocked by the tongue H&P reviewed: Yes Relevant diagnostic studies: CBC pending Confirm NPO status: Yes, Date and Time of last intake: last evening History of anesthetic complications: No Current medications reviewed: Yes Lovenox held. Allergies reviewed: Yes Alcohol use: none, Date and Time of last drink: 1987 Drug use: none Sedation Plan: moderate (conscious sedation) The sedation plan, its benefits and risks, and alternatives were discussed with the patient. The planned procedure, its benefits and risks, and alternatives were discussed with the patient. Thepatient consented to the procedure. Discharge to: Home HEYDI Quiroga APRN documented in this encounter Procedure Notes Hayley Palmer APRN - 10/07/2021 4:58 PM ESTProcedure(s): HC DIAGNOSTIC BONE MARROW BIOPSIES Pre-Procedure Diagnose(s): Acute myeloid leukemia in remission BONE MARROW BIOPSY AND ASPIRATION PROCEDURE NOTE Bone marrow biopsy with sedation Consent: Signed and on chart DIAGNOSIS: AML pre-stem cell transplant marrow assessment IV ACCESS: peripheral - unable to access port. Please see RN notes Pre-Procedure: (x) Pt and family educated about [...] and Oncology Parviz Modi MD [facility] DR HEMATOLOGY/[place] [address] Miroslava Pelayo APRN [facility] [address] HEMATOLOGY/[place] [address] 02/24/2022 Office Visit Wound Care 02/24/2022 Appointment Hematology and Oncology 02/26/2022 Office Visit Neurology Leni Bustamante MD [facility] NEUROLOGY DEPT. [place], [place] [address] (Wo rk) documented as of this encounter Procedures Procedure Name Priority Date/Time Associated Comments Diagnosis (OSC MSURG) BONE MARROW 10/07/2021 3:46 AML BIOPSY AND ASPIRATION; PM EST DIAGNOSTIC SCAN, PERIPHERAL BLOOD Routine 10/07/2021 3:29 Re sults for this PM EST procedure are i n the results section. HEMOGRAM Routine 10/07/2021 3:29 Results for this PM EST procedure are i n the results section. DIFFERENTIAL, AUTOMATED Routine 10/07/2021 3:29 R esults for this PM EST procedure are i n the results section. HC CBC,PLT & AUTO DIFF Routine 10/07/2021 3:29 PM EST (OSC MSURG) BONE MARROW Routine 10/07/2021 2:13 BIOPSY AND ASPIRATION; PM EST DIAGNOSTIC IMMUNOPHENOTYPING FLOW Routine 10/07/2021 2:13 Re sults for this CYTOMETRY PM EST procedure are i n the results section. BONE MARROW FINAL REPORT Routine 10/07/2021 2:13 Results for this PM EST procedure are i n the results section. IRON STAIN, BONE MARROW Routine 10/07/2021 2:13 R esults for this PM EST procedure are i n the results section. BONE MARROW PANEL Routine 10/07/2021 2:13 ([facility]/APD) PM EST documented in this encounter Results Scan, Peripheral Blood (10/07/2021 3:29 PM EST) [facility] gist Method Time Signature Plat Estimate Decreased [facility] RBC Morphology Abnormal [facility] Macrocytes 1-5 /HPF [facility] Microcytes 6-10 /HPF [facility] Ovalocytes 1-5 /HPF [facility] Specimen Anatomical Collection Method Collection Time Receive d Time (Source) Location / / Volume Laterality Blood 10/07/2021 3:29 PM 4:42 EST PM EST Resulting Agency Comment Spec In Lab Hayley Palmer FILM PROCESS OPERATOR HEMATOLOGY ORDERABLES Performing Organization Address City/State/[place] [address] Differential, Automated (10/07/2021 3:29 PM EST) athologist Signature Neutrophils % 62.6 % [facility] Neutr Abs (ANC) 2.88 1.70 - [facility] 6.10 [facility] x10(3)/[facility] Lymphocytes % 25.0 % [facility] Lymphocytes Abs 1.2 0.9 - 3.2 [facility] x10(3)/[facility] LABORATORY Monocytes % 11.5 % [facility] Monocyte Abs 0.5 0.3 - 0.9 [facility] x10(3)/[facility] LABORATORY Eosinophils % 0.0 % [facility] Eosinophils Abs 0.0 0.0 - 0.4 [facility] x10(3)[facility] Basophils % 0.2 % [facility] Basophils Abs 0.0 0.0 - 0.1 [facility] x10(3)/[facility] LABORATORY Immature Gran % 0.70 % [facility] Comment: Immature granulocytes(IG's)percentage an d absolute count will include metamyelocytes, myelocytes, and promyelo cytes. Blood smears from CBCs yielding IG's will be scanned manually for concor dance. If this scan disagrees with the automated IG or if promyelocytes are not ed, a manual differential will be performed. Zara Gran Abs 0.03 0.00 - 0.04 x10(3)/[facility] MAR Y [facility] Specimen Anatomical Collection Method Collection Time Receive d Time (Source) Location / / Volume Laterality Blood 10/07/2021 3:29 PM 2 4:42 EST PM EST Resulting Agency Comment Spec In Lab Hayley Palmer HEYDI HEMATOLOGY ORDERABLES Performing Organization Address City/State/[place] [address] (ABNORMAL) Hemogram (10/07/2021 3:29 PM EST) P athologist Signature WBC 4.6 4.0 - 9.5 [facility] x10(3)/[facility] LABORATORY RBC 2.59 (L) 4.58 - 5.54 [facility] x10(6)/[facility] Comment: Dimorphic RBC population. Hemoglobin 9.0 (L) 13.7 - 16.5 g/dL [facility] Hematocrit 26.3 (L) 40.5 - 48.5 % [facility] MCV 101.5 (H) 82.9 - 93.1 fL [facility] MCH 34.7 (H) 27.5 - 32.1 pg [facility] MCHC 34.2 32.0 - 35.7 g/dL [facility] Platelets 119 (L) 145 - 357 x10(3)/[facility] LABORATORY RDWSD Not Measured 36.0 - 45.0 fL [facility] RDWCV Not Measured 11.4 - 13.8 % [facility] MPV 10.6 7.6 - 12.9 fL [facility] nRBC % Auto 0.0 % [facility] nRBC Abs Auto 0.000 0.000 - 0.000 [facility] x10(3)/[facility] LABORATORY Specimen Anatomical Collection Method Collection Time Receive d Time (Source) Location / / Volume Laterality Blood 10/07/2021 3:29 PM 2 4:42 EST PM EST Resulting Agency Comment Spec In Lab Hayley Palmer APRN HEMATOLOGY ORDERABLES Performing Organization Address City/State/ZIP Code [place] [address] Bone Marrow Final Report (10/07/2021 2:13 PM EST) Component Value Ref Test Analysis Performed At [facility] Range Method Time Signature Bone Marrow [id number] ? Location: [facility] Final Report ARASELI The signing pathologist has (i) examined the relevant preparation(s) for the [facility] specimen(s) and (ii) rendered or confirmed the diagnosis(es) . HOSPITAL LABORATORY . ? Bone Marrow Final DIAGNOSIS BONE MARROW (PERIPHERAL SMEAR, ASPIRATE SMEAR, TOUCH PREP, C ORE BIOPSY): ?? 1. ??Slightly hypocellular marrow (~30-40%) showing complete multilineage ?hematopoiesis and no morphologically appreciable incre ase in blasts ?? 2. ??Reticulin stain shows mild patchy reticulin fibro sis (MF 0-1 of 3) ?? 3. ??Peripheral smear with moderate normochromic macrocy tic anemia and ?thrombocytopenia Electronically signed by: ?Colby Coyne MD Verified: ??10/08/2021 19:27 ??Hematopathologist Performed at: ??-[facility] Dept. of Pathology, [place], [place] DISCUSSION Concurrent flow cytometry st udies were negative for increased myeloblasts; compatible with the morphologic findings. Quantitative PCR-based NPM1 studies for MRD evaluation have been sent-out and results will be issued separately. PERIPHERAL SMEAR WBC 4.6K/uL, RBC 2.6M/uL, HGB 9.0g/dL, MCV 101.5fL, PLT 119K /uL There is a moderate normochr omic macrocytic anemia. Anisopoikilocytosis is increased, and oval macrocytes, teardr op cells, and some elliptocytes are seen. Polychromasia is not significantly increa sed. The total leukocyte count is normal, and leukocyte- subset counts are within reference limits. The neutrop hils are mostly mature and without significant lef t-shift. Remaining leukocyte morphology is generally unremarkable. There is a mild thrombocytopenia, but plate let morphology is unremarkable. BONE MARROW ASPIRATE Adequacy: ?Smear/touch preps aparticulate/hemodilut e, diff deferred. Erythroid: ? Complete maturation and no left-shift seen in touch-prep. Granulocyte: ?? Complete maturation and no left-shift seen i n touch-prep. Megakaryocyte: Not observed. Lymphocyte: ?Scattered mature forms seen, no aggregates appreciated. Other: ? No observed increase in blasts in touch-p rep. Iron stain: ?Aparticulate; iron stores uneva luable, no ring sideroblasts. BONE MARROW BIOPSY and/or CLOT Adequacy: ? Decalcified, a dequate, evaluable marrow present. Cellularity: ?? Slightly hypocellular, 30-40%. Erythroid: ? Precursors numerically slightly decreased. Granulocyte: ?? Precursors numerically normal. Megakaryocyte: Normal in number and appearance, no clusterin g seen. Lymphocytes: ?? No abnormal aggregates identified. Other: ? Normal pl asma cells, eosinophils, basophils, and mast cells. Bone: ?Trabecular bone normal for age. Retic stain: ?? Mild patchy myelofibrosis (MF 0-1 of 3). IMMUNOHISTOCHEMISTRY STUDIES Block: ?A1 (Core biopsy) . BONE MARROW BIOPSY and/or CLOT Fixative: ?? Formalin ANTIBODY: ?? RESULT/COMMENT CD34 ?Rare blasts stain (<1%), vasculature highlig hted CD61 ?Megakaryocytes highlighted, no clustering se en CD117 ? Few scattered cells stain, no clustering appr eciated MPO ? Granulocytic precursors highlighted, G:E rat io ~1-2:1 E-Cadherin ??Erythroid precursors highlighted Note: The immunoperoxidase s tains reported above were developed and their performance characteristics determined by [facility] Clinical Laboratories. ??They have not been cleared or approved by the U.S. Food and Drug Administration, although such approval is not required for analyte -specific reagents of this type. ??Appropriate positive and negative controls are included for each case. CLINICAL INFORMATION Specimen: ? 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 Gat-isun-ELA marrow evaluation SPECIMEN PROCESSING A - Labeled/Fixative: L hip, formalin. Quantity/Size: Single, 1.0 x 0.2 cm. Tissue Description: Red-brown, bone core needle biopsy. Sections/Processing: Blocks submitted for decalcification: A1. Entirely submitted in 1 cassette labeled A1. ??shb ?Dru w Cytometry DIAGNOSIS BONE MARROW - FLOW CYTOMETRY: No abnormally increased myeloblast population is detected (s ee comment) COMMENT: Please refer to the primary biopsy report for morphologic co rrelation. Electronically signed by: ?Colby Coyne MD Verified: ??10/08/2021 17:27 ??Hematopathologist Performed at: ??-[facility] Dept. of Pathology, [place], [place] DISCUSSION The TZ45-smr low-SSC flow sc atterplot region represents ~1% of the total events and shows no increase in blasts. Flow analysis is an ancillar y study. A definite diagnosis requires correlation with the morphologic features of this process and if necessary, correlation with other ancillary studies like immu nohistochemistry, enzyme cytochemistry and/or cyto/ molecular genetics. This test was developed and its performance veronica acteristics determined by the Clinical Flow Cytometry Lab oratory at [facility]. It has not been cleared or approve [...] complexity clinic al laboratory testing. SPECIMEN PROCESSING [id number] . SPECIMEN PROCESSING Cells for immunophenotypic a nalysis were derived from bone marrow. CD45 vs side scatter gating was utilized to identify a CD45 dim analysis region that comprises approximately 1% of all cells. The following markers were a ssessed: CD3, CD13, CD14, CD19, CD34, CD45, CD56, CD117, and HLA-DR. CLINICAL INFORMATION A 61 year old man with history of relapsed NPM1+ and FLT3-ITD+ AML. He is now undergoing [id number] evaluation. Specimen (Source) Anatomical Collection Method Collection Time Re ceived Time Location / / Volume Laterality 10/07/2021 2:13 PM EST Hayley Loza Spencer SOLIZ PATHOLOGY/CYTOLOGY ORDERABLE S Performing Organization Address City/[facility]/ZIP Code Phon e Number [address] Immunophenotyping Flow Cytometry (10/07/2021 2:13 PM EST) Component Value Ref Test Analysis Performed At [facility] Method Time Signature Immunophenotyping See [facility] Flow Comment [facility] Comment: When completed by the Pathologist, the F low Cytometry Report ([id number]) will display under the Pathology Result s section within [facility]. Specimen Anatomical Collection Method Collection Time Receive d Time (Source) Location / / Volume Laterality Bone Marrow 10/07/2021 2:13 PM 2 4:41 EST PM EST Resulting Agency Comment Spec In Lab Hayleywendy Palmer APRN HEMATOLOGY ORDERABLES Performing Organization Address City/[facility] Code Phon e Number [address] Iron Stain, Bone Marrow (10/07/2021 2:13 PM EST) [facility] Method Time Signature Iron Stain BM See Comment [facility] Comment: See Bone Marrow Report [id number] under Hematopathology Reports. Specimen Anatomical Collection Method Collection Time Receive d Time (Source) Location / / Volume Laterality Bone Marrow 10/07/2021 2:13 PM 2 4:41 EST PM EST Resulting Agency Comment Spec In Lab Hayley Dago Palmer APRN HEMATOLOGY ORDERABLES Performing Organization Address City/[facility]/ZIP [facility] Phon e Number [address] documented in this encounter Visit Diagnoses Not on filedocumented in this encounter Administered Medications Inactive Administered Medications - up to 3 most recent administrations Medication Order MAR Action Action Date Dose Rate Site fentaNYL (pf) (50 mcg/mL) Given 10/07/2021 4:16 PM EST 25 mcg multi-dose injection 25 mcg 25 mcg, Intravenous, EVERY 5 MIN PRN, Starting on Thu10/07/21 at 1413, Until Thu10/07/21 at 1654, Pain, Administer every 5 min to achieve pain scale 1-3. Hold for respiratory rate less than 8 breaths per minute. Dose not to exceed 200 mcg., Intra-Operative (Intra-Procedure), Routine Given 10/07/2021 4:06 PM EST 25 mcg Given 10/07/2021 3:58 PM EST 25 mcg midazolam (pf) (Versed) (1 mg/mL) multi-dose Given 10/07/2021 3: 58 PM EST 2 mg injection 0.25-1 mg 0.25-1 mg, Intravenous, EVERY 5 MIN PRN, Starting on Thu10/07/21 at 1413, Until Thu10/07/21 at 1654, Anxiety, Administer every 5 minutes to achieve RASS (-)1. Hold for delirium/agitation. Dose not to exceed 4 mg., Intra-Operative (Intra-Procedure), Routine documented in this encounter Active and Recently Administered Medications Times are shown in EST. PRN Medication Order 10/05/2021 10/06/2021 10/07/2021 fentaNYL (pf) (50 mcg/mL) multi-dose injection 25 mcg (CANCELED) 1558 (Given - Provider: Don German RN)1606 (Given - Provider: Don German, RN)1616 (Given - Provider: Don German, RN) 25 mcg, Intravenous, EVERY 5 MIN PRN, St arting on Thu10/07/21 at 1413, Until Thu10/07/21 at 1654, Pain, Administer every 5 min to achieve pain scale 1-3. Hold for respiratory rate less than 8 breaths pe r minute. Dose not to exceed 200 mcg., I ntra-Operative (Intra-Procedure), Routine midazolam (pf) (Versed) (1 mg/mL) multi-dose injection 0.25-1 mg (CANCELED) 1558 (Given - Provider: Don German RN) 0.25-1 mg, Intravenous, EVERY 5 MIN PRN, Starting on Thu10/07/21 at 1413, Until Thu10/07/21 at 1654, Anxiety, Administer every 5 minutes to achieve RASS (-)1. Hold for delirium/agitation. Dose not to ex ceed 4 mg., Intra-Operative (Intra-Procedure), Routine documented in this encounter Additional Health Concerns Infection Onset Date Last Indicated Resolved Time History of C. difficileComment: C. diffiicile 08/20/2021 testing positive 05/25/21. documented as of this encounter Care Teams [place] Planning Manager Relationship Specialty Start Date End Date Beatriz Maurice PA PCP - General Family Medicine 05/06/21 [address] [place] [address] documented as of this encounter
--- OUTSIDE RECORDS SUMMARY | 2022-02-14 11:14 | XMS_ITS | Encounter Summary ---
:1960 Author Organization [facility] Address [address] [place] [address] Care Team Providers Name Role Phone Beatriz Maurice Primary Care Provider Encounter Details Date Type Department Care Team Description 09/27/2021 Office Visit Cardiology at [facility] Neno Arora MD [facility] [place] [address] Paroxysmal atrial [facility] Jack Cintron MD [facility] [place] [address] fibrillation (Primary Drive Dx) [place] [id number] Social History Tobacco Use Types Packs/Day Years [...] Sign Reading Time Taken Comments Blood Pressure 124/85 09/27/2021 8:56 AM EST Pulse 89 09/27/2021 8:56 AM EST Temperature - - Respiratory Rate - - Oxygen Saturation 100% 09/27/2021 8:56 AM EST Inhaled Oxygen Concentration - - Weight 109 kg (240 lb 6.4 oz) 09/27/2021 8:56 AM EST Height 180.3 cm (5' 11) 09/27/2021 8:56 AM EST Body Mass Index 33.53 09/27/2021 8:56 AM EST documented in this encounter Progress Notes Jack Cintron MD - 09/27/2021 9:00 AM EST Cardiology Clinic Note History of Present Illness Herber Iverson Jr. is a 61 y.o. male with a history of paroxysmal AF, AML, GERD, BPH, C. diff colitis c/b toxic megacolon s/p colectomy (05/2021), b/l segmental PE (07/2021) who presented to cardiology clinic for pre-bone marrow transplant cardiac risk assessment. He was referred by LEISA Maurice. He was diagnosed with AML in 04/2021. He was underwent induction with D1 7&3 + midostauren on 05/08/2021. Follow-up bone marrow biopsy showed 3.5% blasts c/w remission. In 06/2021, bone marrow biopsy with 26% blasts consistent with relapsed AML. Lumbar puncture in 06/2021 positive for myeloblasts. In 07/2021, he underwent reinduction with venetroclax and gilterinib. Future LPs showed no evidence of disease. Bone biopsy in 07/2021 showed low blast count. Planned for bone marrow transplant in October 2021. During hospitalization, he was diagnosed with bilateral multifocal partially occlusive segmental andsubsegmental pulmonary emboli by CTA Chest . A b/l duplex of the LEs showed no evidence of DVTs. He was started on therapeutic lovenox and continues to take it daily. He was first diagnosed with atrial fibrillation in 1990. He had symptoms of orthostasis and presyncope and was found to be in atrial fibrillation at the hospital. He was on a baby aspirin daily and fora short period was placed on apixaban (discontinued by steel layout worker, name not recalled). He was started on flecainide 10 years ago due to increased frequency of atrial fibrillation. He knows when he isin atrial fibrillation symptomatically by feeling palpitations described as an irregular heart rhythm. He feels these symptoms every 5 years. He has had 4 or 5 prior DCCV, last one 5 years ago. No prior ablations or other antiarrythmic use. No blood in urine or stool. He is able to perform all activities of daily living, such as cooking, cleaning, shopping. He walks up 1 flight of stairs and does leg exercises several times per day. He eats meat, potatoes, vegetables. He eats a variety of red and white meat. He eats starchy vegetables like rice and potatoes. He wasadvised to decrease consumption of green leafy vegetables and fruits due to recent ileostomy. No chest pain or pressure or tightness, dyspnea, LE edema, orthopnea, change in exercise tolerance. Past Medical History: Diagnosis Date ??? AML (acute myeloblastic leukemia) 04/2021 ??? BPH (benign prostatic hyperplasia) ??? GERD (gastroesophageal reflux disease) ??? Paroxysmal atrial fibrillation ??? 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 ACHILLES TENDON SURGERY ? ? PRO DIAGNOSTIC BONE MARROW BIOPSIES & ASPIRATIONS Right 09/12/2021 ([facility]) BONE MARROW BIOPSY AND ASPIRATION; DIAGNOSTIC performed by Parviz Modi MD [facility] ??? PRO EXPLORATORY OF ABDOMEN Midline 05/26/2021 @EXPLORATORY LAPAROTOMY, WITH/WITHOUT BIOPSY(S) (WRVU 12.54) performed by Mark Hernandes MD [facility] MAIN OR ??? PRO ILEOSTOMY/JEJUNOSTOMY, NONTUBE N/A 05/28/2021 @ILEOSTOMY OR JEJUNOSTOMY, NON TUBE (WRVU 17.59) performed by Colby Walter MD at [facility] MAIN OR ??? PRO REOPEN RECENT ABD EXPLORATORY N/A 05/28/2021 @EXPLORATORY LAPAROTOMY, REOPENING OF RECENT (WRVU 17.63) performed by Colby Walter MD at [facility] MAIN OR ??? TONSILLECTOMY AND ADENOIDECTOMY ??? XR FLUORO GUIDED LUMBAR PUNCTURE N/A 07/12/2021 XR Fluoro Guided Lumbar Puncture 07/12/2021 Frances Green MD [facility] RAD XRAY ??? XR FLUORO GUIDED LUMBAR PUNCTURE FOR IT CHEMOTHERAPY N/A 07/16/2021 XR Fluoro Guided Lumbar Puncture For IT Chemotherapy 07/16/2021 Nas Patino MD [facility] RAD XRAY ??? XR FLUORO GUIDED LUMBAR PUNCTURE FOR IT CHEMOTHERAPY N/A 07/19/2021 XR Fluoro Guided Lumbar Puncture For IT Chemotherapy 07/19/2021 Shae Alford MD [facility] RAD XRAY ??? XR FLUORO GUIDED LUMBAR PUNCTURE FOR IT CHEMOTHERAPY N/A 07/25/2021 XR Fluoro Guided Lumbar Puncture For IT Chemotherapy 07/25/2021 Nas Patino MD [facility] RAD XRAY ??? XR FLUORO GUIDED LUMBAR PUNCTURE FOR IT CHEMOTHERAPY N/A 07/29/2021 XR Fluoro Guided Lumbar Puncture For IT Chemotherapy 07/29/2021 [facility] RAD XRAY ??? XR FLUORO GUIDED LUMBAR PUNCTURE FOR IT CHEMOTHERAPY N/A 08/05/2021 XR Fluoro Guided Lumbar Puncture For IT Chemotherapy 08/05/2021 Nas Patino MD [facility] RAD XRAY ??? XR FLUORO GUIDED LUMBAR PUNCTURE FOR IT CHEMOTHERAPY N/A 08/01/2021 XR Fluoro Guided Lumbar Puncture For IT Chemotherapy 08/01/2021 Yolette Solano, HEYDI [facility] RAD XRAY ??? XR FLUORO GUIDED LUMBAR PUNCTURE FOR IT CHEMOTHERAPY N/A 07/22/2021 XR Fluoro Guided Lumbar Puncture For IT Chemotherapy 07/22/2021 [facility] RAD XRAY ??? XR FLUORO GUIDED LUMBAR PUNCTURE FOR IT CHEMOTHERAPY N/A 08/12/2021 XR Fluoro Guided Lumbar Puncture For IT Chemotherapy 08/12/2021 Jona Lowry MD [facility] RAD XRAY ??? XR FLUORO GUIDED LUMBAR PUNCTURE FOR IT CHEMOTHERAPY N/A 08/26/2021 XR Fluoro Guided Lumbar Puncture For IT Chemotherapy 08/26/2021 Yolette Solano APRN [facility] RAD XRAY ??? XR FLUORO GUIDED LUMBAR PUNCTURE FOR IT CHEMOTHERAPY N/A 09/05/2021 XR Fluoro Guided Lumbar Puncture For IT Chemotherapy 09/05/2021 Yolette Solano, HEYDI [facility] RAD XRAY ??? XR FLUORO GUIDED LUMBAR PUNCTURE FOR IT CHEMOTHERAPY N/A 09/09/2021 XR Fluoro Guided Lumbar Puncture For IT Chemotherapy 09/09/2021 Yolette Solano, FUSE MAKER [facility] RAD XRAY Social History Socioeconomic History ??? Marital status: Domestic Partner Spouse name: Chai Orlando ??? Number of children: None ??? Years of education: None ??? Highest education level: None Occupational History ??? Occupation: employed at [employer] Tobacco Use ??? Smoking status: Never Smoker ??? Smokeless tobacco: Never Used Vaping Use ??? Vaping Use: Never used Substance and Sexual Activity ??? Alcohol use: Not Currently Comment: 5 drinks/year ??? Drug use: Never ??? Sexual activity: None Other Topics Concern ??? 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 Lives with girlfriend in [place], [place]. . No biologic children. Social Determinants of Health Financial Resource Strain: Not on file Food Insecurity: Not on file Transportation Needs: Not on file Physical Activity: Not on file Housing Stability: Not on file Family History Problem Relation Age of Onset ??? Lung Cancer Father Current Outpatient Medications Medication Sig Dispense Refill ??? venetoclax (Venclexta) 100 mg tablet Take 1 tablet (100 mg) by mouth daily for 30 days. Take with food and a large glass of water. Call clinic before starting medication. Indications: acute myeloidleukemia, a type of blood cancer 30 tablet 5 ??? sulfamethoxazole-trimethoprim DS (Bactrim DS) 800-160 mg Tablet Take 1 tablet by mouth three times a week. 12 tablet 5 ??? acyclovir (Zovirax) 400 mg Tablet Take 1 tablet by mouth 2 times daily. 60 tablet 5 ??? fluconazole (Diflucan) 200 mg Tablet Take 2 tablets by mouth daily for 30 days. 60 tablet 5 ??? levoFLOXacin (Levaquin) 750 mg Tablet Take 1 tablet by mouth daily. 30 tablet 5 ??? vancomycin (Vancocin) 125 mg Capsule Take 1 capsule by mouth 2 times daily. 60 capsule 5 ??? metoprolol succinate XL (Toprol-XL) 50 mg Tablet Sustained Release 24 hr Take 1 tablet by mouth daily. 30 tablet 5 ??? gilteritinib (Xospata) 40 mg tablet Take 3 tablets (120 mg) by mouth daily. Call clinic before starting medication. 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 Ostomy Supplies Misc Dispense 2 boxes ( 10/box) of Adapt Barrier rings #[id number] per month. 20 each 11 ??? Colostomy Belt (Ostomy Belt Medium) Misc Dispense 1 Sensura [place] Belt #4237 per month. 1 each 11 ??? Ostomy Supplies Powder Dispense 1 bottle of Adapt stoma powder #7906 every other month. 28.3 g 5 ??? Ostomy Supplies Misc Dispense 2 boxes (10/box) of Sensura Flako Soft Convex One-piece Pouch #[id number] month. 20 each 11 ??? Ostomy Supplies Misc Dispense 2 boxes (20/box) of Brava Elastic Barrier strips #[id number] per month. 40 each 11 ??? Ostomy [...] tablets by mouth daily. 30 tablet 12 Allergies Allergen Reactions ??? Other [Unclassified Drug] Other (See Comments) Artificial Sweetners-lightheadedness, dizziness Review of Systems All other systems reviewed and are negative, except for those outlined in HPI. Physical Exam BP 124/85 Pulse 89 Ht 180.3 cm (5' 11) Wt 109 kg (240 lb 6.4 oz) SpO2 100% BMI 33.53 kg/m?? General: Adult male, obese, alert and cooperative, no acute distress. Neck: No carotid bruits. Chest: Symmetrical expansion. No tenderness to palpation. Cardiac: Regular rate and rhythm. Normal S1 and S2. No murmurs, gallops, or rubs. No JVD. Lungs: Clear to auscultation and percussion without rales, rhonchi, wheezing, or diminished breath sounds. Abdomen: Positive bowel sounds. Soft, nontender, nondistended. No guarding or rebound. Extremities: 2+ bilateral LE edema to knees, worse progressing to ankles. 2+ DP and PT pulses. Extremities warm and well perfused. Labs Recent Labs 09/16/21 1048 09/09/21 0837 09/05/21 0827 NA 138 135 138 K 4.5 4.5 4.5 CL 111* 106 108* CO2 15* 16* 19* BUN 29* 33* 22* CREATININE 1.30 1.46 1.08 GLUCOSE 103 114 133 Recent Labs 09/16/21 1048 09/09/21 0837 09/05/21 0827 08/12/21 0923 08/08/21 0310 08/07/21 0403 08/06/21 0415 CALCIUM 9.4 9.6 9.3 < > 8.8 8.8 8.7 MAGNESIUM -- -- -- -- 0.85 0.64* 0.80 PHOS -- -- -- -- 4.3 4.3 4.0 < > = values in this interval not displayed. Recent Labs 09/16/21 1048 09/09/21 0837 09/05/21 0827 08/12/21 0923 08/08/21 0310 08/07/21 0403 08/06/21 0415 AST 38 42* 36 < > 31 33 29 ALT 37 41 33 < > 37 38 31 ALKPHOS 132* 138* 129 < > 167* 150* 135* BILITOT 0.3 0.3 <0.2* < > 0.3 0.2 0.3 BILIDIR -- -- -- -- 0.1 0.1 0.1 PROT 7.7 8.1* 7.4 < > 7.0 7.0 6.7 ALBUMIN 4.2 4.2 3.8 < > 3.4 3.4 3.4 < > = values in this interval not displayed. Recent Labs 09/16/21 1048 09/12/21 0741 09/09/21 0837 WBC 2.7* 1.8* 1.6* HGB 8.6* 9.0* 9.0* HCT 25.0* 25.8* 26.6* PLATELET 117* 125* 129* 129* Recent Labs 09/09/21 0837 09/05/21 0827 08/26/21 0816 PT 10.9 11.0 10.9 INR 1.0 1.0 1.0 PTT 32 31 28 Recent Labs 07/12/21 0627 05/26/21 0820 PROBNP 5,625* 1,308* Recent Labs 07/13/21 0325 CHLPL 109 HDL 29 CHOLHDL 3.8 TRIG 171 LDLCHOL 46 Recent Labs 07/13/21 0250 07/12/21 0627 HA1C 4.8 -- TSH -- 6.91* Diagnostic Studies ECG (09/24/2021): NSR. Normal ECG. QTc 445 msec. TTE (07/12/2021): 1. The left ventricular chamber size is normal. There is normal global left ventricular systolic function. Ejection fraction is estimated to be 65%. There is septal flattening present consistent with right ventricular pressure overload. 2. The right ventricle is mildly dilated. Right ventricular global systolic function is probably normal (TAPSE 2.3 cm). 3. The left atrium is probably normal in size. 4. There is trace tricuspid regurgitation present. 5. The estimated pulmonary artery systolic pressure is 47 mmHg. The estimated right atrial pressure is 8 mmHg. 6. Compared to prior study dated 06/03/2021 there is no significant change. There are no vegetationsseen on this study, if clinical suspicion for endocarditis remains, consider OLEKSANDR for further evaluation. Assessment & Plan Herber Iverson Jr. is a 61 y.o. male with a history of paroxysmal AF, AML, GERD, BPH, C. diff colitis c/b toxic megacolon s/p colectomy (05/2021), b/l segmental PE (07/2021) who presented to cardiology clinic for pre-bone marrow transplant cardiac risk assessment. #Pre-bone marrow transplant cardiac risk assessment He was diagnosed with AML in 04/2021. He was underwent induction with D1 7&3 + midostauren on 05/08/2021. Follow-up bone marrow biopsy showed 3.5% blasts c/w remission. In 06/2021, bone marrow biopsywith 26% blasts consistent with relapsed AML. Lumbar puncture in 06/2021 positive for myeloblasts. In 07/2021, he underwent reinduction with venetroclax and gilterinib. Future LPs showed no evidence ofdisease. Bone biopsy in 07/2021 showed low blast count. Planned for bone marrow transplant in October 2021. He does not report symptoms of chest pain or pressure on exertion or at rest. He is able to complete about 6 METS by Corley Activity Score Index. His ASCVD score is about 6% risk for IN in the next 10 years. He does not need further ischemic evaluation prior to the scheduled procedure. He does not have symptoms of heart failure. He underwent TTE recently at [facility], for which I work to obtain the results. -no cardiac contraindication for proceeding with bone marrow transplant, can proceed with transplantprior to pharmacologic stress test (management for paroxysmal atrial fibrillation) -will obtain records of recent OSH echocardiogram -continue metoprolol succinate 50 mg daily -continue flecainide 50 mg twice daily #Paroxysmal atrial fibrillation He was first diagnosed with atrial fibrillation in 1990. He was started on flecainide ~2011. He can become symptomatic by feeling palpitations described as an irregular heart rhythm every 5 years. He has had 4 or 5 prior DCCV, last one 5 years ago. No prior ablations. CHADS2-VA2Sc score 0 points, anticoagulation not indicated. He does not have symptoms of angina, however given age and risk factors, he should have a non-urgent stress test as flecainide has increased risk of arrhythmia when structuralheart disease is present. -continue flecainide 50 mg twice daily -continue metoprolol succinate 50 mg daily #Pulmonary embolism He was found to have bilateral multifocal segmental and subsegmental pulmonary emboli on CTA Chest in 04/2021. He was treated with enoxaparin and continues to take this daily. This is a provoked PE and he will be at persistent risk of another PE due to AML malignancy. After bone marrow transplantation,he may develop anemia and thrombocytopenia, in which care home anticoagulation may pose more risk than benefit. For now, recommend to continue anticoagulation and monitor cell lines after bone marrow transplant. This can also be managed by his mural artist-oncologist. -continue enoxaparin 1.5 mg/kg daily Return to clinic in 6 months for f/u s/p bone marrow transplant. The patient was seen and discussed with attending physician Dr. Arora. Please see attending addendum for any additions or modifications. Jack Cintron MD [facility] Neno Arora MD - 09/27/2021 9:00 AM EST Images from the original note were not included. [place] [id number] CARDIO-ONCOLOGY CONSULTATION Herber Butts Kishor Anne 09/27/2021 Primary Care Provider: LEISA Munguia Referring Provider: Beatriz Maurice CHIEF COMPLAINT: Pre-HSCT HISTORY OF PRESENT ILLNESS: Herber Iverson Jr. is a 61 y.o. patient who presents for cardiac assessment prior to HSCT Pertinent Cardiac History: Pulmonary Embolus, bilateral, segmental - Dx: 06/2021 - RV normal size, mild dysfunction. PASP 47 - Lovenox Atrial Fibrillation, Paroxysmal - Not on OAC (chadsvasc 0) Most recent TTE 09/2021 ([facility]): normal bi-ventricular size and function. No VHD. Normal bi-atrial size. Pertinent Oncologic History: Acute Myeloid Leukemia, FLT+ - Dx: 04/2021 - Tx: 7+3 + midostaurin - 06/2021: remission - Tx: venetoclax + gilteritinib --> persistent dz --> reinduction ALLERGIES: Reviewed and updated as appropriate in the medical record. Allergies Allergen Reactions ??? Other [Unclassified Drug] Other (See Comments) Artificial Sweetners-lightheadedness, dizziness MEDICATIONS: No outpatient medications have been marked as taking for the 09/27/21 encounter (Appointment) with Neno Arora MD. PHYSICAL EXAMINATION: Vital Signs: There were no vitals taken for this visit. Wt & BMI By Encounter Date Flowsheet Row Office Visit from 09/16/2021 in Hematology and Oncology at [facility] Admission (Discharged) from 09/12/2021 in [facility] Weight 105.9 kg (233 lb 6.4 oz) [with shoes] 1 09/16/2021 1053 106.6 kg (235 lb) 1 09/12/2021 0713 BMI 33.49 1 09/16/2021 1053 32.77 1 09/12/2021 0713 Gen: pleasant male in NAD Cor: rrr, s1/s2 of nl character and amplitude, no m/r/g. Estimated RAP not elevated. Carotids with normal upstroke without bruit. Pulm: CTAB. Normal diaphragmatic movement without use of accessory muscles Ext: no c/c/e. Dp/pt ++ CARDIAC STUDIES TTE: Reviewed, as per pertinent cardiac history above Please refer to Dr. Cintron's excellent note for our shared formulation/plan Neno Arora MD Between 45-59 minutes were spent doing patient care, chart care/review (today), and care coordination. documented in this encounter Plan of Treatment Upcoming Encounters Date Type Specialty Care Team Description 02/18/2022 Infusion Hematology and Oncology 02/21/2022 Infusion Hematology and Oncology 02/24/2022 Appointment Hematology and Oncology 02/24/2022 Office Visit Hematology and Oncology Parviz Modi MD [facility] DR HEMATOLOGY/[place] [address] [address] [facility] [address] HEMATOLOGY/[place] [address] 02/24/2022 Office Visit Wound Care 02/24/2022 Appointment Hematology and Oncology 02/26/2022 Office Visit Neurology Leni Bustamante MD [facility] DR NEUROLOGY DEPT. [place], [place] [address] (Wo rk) documented as of this encounter Visit Diagnoses Diagnosis Paroxysmal atrial fibrillation - Primary Atrial fibrillation documented in this encounter Additional Health Concerns Infection Onset Date Last Indicated Resolved Time History of C. difficileComment: C. diffiicile 08/20/2021 testing positive 05/25/21. documented as of this encounter Care Teams Tire Retreader Relationship Specialty Start Date End Date Beatriz Maurice PA PCP - General Family Medicine 05/06/21 [address] [place] [address] documented as of this encounter
--- OUTSIDE RECORDS SUMMARY | 2022-02-14 11:14 | XMS_ITS | Encounter Summary ---
:1960 Author Organization [facility] Address [address] [place] [address] Care Team Providers Name Role Phone Beatriz Maurice Primary Care Provider Encounter Details Date Type Department Care Team Description 09/27/2021 Orders Only Hematology and Pierce, Miroslava Spivey, Acute le ukemia not Oncology at [facility] [employer] LATHE TENDER having achieved [facility] [place] [address] HEMATOLOGY/ONCOLOG [phone] Y [address]PT. [place] [address] Social History Tobacco Use Types Packs/Day [...] Visit Hematology and Oncology Parviz Modi MD [facility] DR HEMATOLOGY/[place] [address] Miroslava Pelayo APRN [facility] HEMATOLOGY/[place] [address] 02/24/2022 Office Visit Wound Care 02/24/2022 Appointment Hematology and Oncology 02/26/2022 Office Visit Neurology Leni Bustamante MD [facility] ER NEUROLOGY DEPT. [place], [place] [address] (Wo rk) documented as of this encounter Results Leukemia Lymphoma Screen Cerebrospinal Fluid (09/27/2021 3:15 PM EST) Patholo gist Method Time Signature LLS BF Type CSF [facility] Leukemia See Comment [facility] Lymphoma [facility] Comment: See Fluid Review Report [id number] under Hematopathology Reports. Specimen (Source) Anatomical Collection Method Collection Time Re ceived Time Location / / Volume Laterality Cerebrospinal Fluid 09/27/2021 3:15 09/27 PM EST 4:04 PM EST Resulting Agency Comment Spec In Lab Miroslava Pelayo APRN BODY FLUIDS AND STOOLS ORDER BRINA Performing Organization Address City/State/[place] [address] Glucose Level CSF (09/27/2021 3:15 PM EST) P athologist Signature Glucose, CSF 51 mg/dL [facility] Comment: CSF at equilibrium equals appro ximately 60-80% of plasma glucose. Specimen (Source) Anatomical Collection Method Collection Time Re ceived Time Location / / Volume Laterality Cerebrospinal Fluid 09/27/2021 3:15 09/27 PM EST 4:04 PM EST Resulting Agency Comment Spec In Lab Miroslava Pelayo APRN BODY FLUIDS AND STOOLS ORDER BRINA Performing Organization Address City/State/[place] [address] (ABNORMAL) Protein Level CSF (09/27/2021 3:15 PM EST) athologist Signature T Protein, CSF 47 (H) 15 - 45 [facility] Xanthochromia Neg [facility] Specimen (Source) Anatomical Collection Method Collection Time Re ceived Time Location / / Volume Laterality Cerebrospinal Fluid 09/27/2021 3:15 09/27 PM EST 4:04 PM EST Resulting Agency Comment Spec In Lab Miroslava Spivey Pierce SOLIZ BODY FLUIDS AND STOOLS ORDER BRINA Performing Organization Address City/[facility]/ZIP Code Phon e Number [address] APTT (09/27/2021 12:21 PM EST) athologist Signature PTT 33 25 - 37 [...] (Source) Location / / Volume Laterality Blood 09/27/2021 12:21 09/27/2021 PM EST 12:38 PM EST Resulting Agency Comment Spec In Lab Miroslava Spivey Pierce SOL[facility] HEMATOLOGY ORDERABLES Performing Organization Address City/[facility]/[place] [address] Prothrombin Time (09/27/2021 12:21 PM EST) athologist Signature PT 12.2 9.4 - 12.5 [facility] LABORATORY INR 1.1 [facility] Comment: An INR [...] (Source) Location / / Volume Laterality Blood 09/27/2021 12:21 09/27/2021 PM EST 12:38 PM EST Resulting Agency Comment Spec In Lab Miroslava Pelayo COPY LATHE TENDER HEMATOLOGY ORDERABLES Performing Organization Address City/State/[place] [address] documented in this encounter Visit Diagnoses Diagnosis Acute leukemia not having achieved remis sharon Acute leukemia of unspecified cell type, without mention of having achieved remission documented in this encounter Additional Health Concerns Infection Onset Date Last Indicated Resolved Time History of C. difficileComment: C. diffiicile 08/20/2021 testing positive 05/25/21. documented as of this encounter Care Teams Scoring Machine Operator Relationship Specialty Start Date End Date Beatriz Maurice PA PCP - General Family Medicine 05/06/21 [address] [place] [address] documented as of this encounter
--- OUTSIDE RECORDS SUMMARY | 2022-02-14 11:14 | XMS_ITS | Encounter Summary ---
:1960 Author Organization [facility] [place] [address] Care Team Providers Name Role Phone Beatriz Maurice Primary Care Provider Encounter Details Date Type Department Care Team Description 10/08/2021 Telephone Public [facility] at [facility] [place] [id number] Social History Tobacco Use Types Packs/Day [...] this encounter Miscellaneous Notes Telephone Encounter - Gabi Barr - 10/08/2021 12:23 PM EST Pt is looking closer to home for pre-op Covid test on 10/12 for a procedure on 10/15. Pt will call us back. documented in this encounter Plan of Treatment Upcoming Encounters Date Type Specialty Care Team Description 02/18/2022 Infusion Hematology and Oncology 02/21/2022 Infusion Hematology and Oncology 02/24/2022 Appointment Hematology and Oncology 02/24/2022 Office Visit Hematology and Oncology Parviz Modi MD [facility] DR HEMATOLOGY/[place] [address] Miroslava Pelayo APRN [facility] HEMATOLOGY/[place] [address] 02/24/2022 Office Visit Wound Care 02/24/2022 Appointment Hematology and Oncology 02/26/2022 Office Visit Neurology Leni Bustamante MD [facility] NEUROLOGY DEPT. [place], [place] [address] (Wo rk) documented as of [...] documented as of this encounter Care Teams Solar Power Installer Relationship Specialty Start Date End Date Beatriz Maurice PA PCP - General Family Medicine 05/06/21 [address] [place] [address] documented as of this encounter
--- OUTSIDE RECORDS SUMMARY | 2022-02-14 11:14 | XMS_ITS | Encounter Summary ---
:1960 Author Organization [facility] [place] [address] Care Team Providers Name Role Phone Beatriz Maurice Primary Care Provider Reason for Referral Diagnostic Test (Routine) - Closed Specialty Diagnoses / Procedures Referred By Contact Refer red To Contact Radiology Diagnoses Acute myeloid leukemia not having achieved remission Stem cell transplant candidate Parviz Modi MD [facility] H[facility] [address] [place] [address] Referral ID Status Reason Start Date Expiration Date Visits V isits Requested Authorized [id number] Closed Specialty 09/16/2021 03/16/2023 1 1 Service Requested Reason for Visit Diagnostic Test (Routine) - Closed Specialty Diagnoses / Procedures Referred By Contact Refer red To Contact Radiology Diagnoses Acute myeloid leukemia not having achieved remission Stem cell transplant candidate Parviz Modi MD [facility] Interventionl Rad Procedures IR Mediport Placement [facility] HEMATOLOGY/[place] [address] [place] [address] Referral ID Status Reason Start Date Expiration Date Visits V isits Requested Authorized [id number] Closed Specialty 09/16/2021 03/16/2023 1 1 Service Requested Encounter Details Date Type Department Care Team Description 10/04/2021 Hospital Encounter Radiology at [facility] [place] [place] Parviz Modi Acute myeloid leukemia not h manny achieved remission; [facility] MD [place] Stem [place] [address] HEMATOLOGY/ONCOLOGY [phone] DEPT. [place], [place] [address] (Wo rk) Social History Tobacco [...] Sign Reading Time Taken Comments Blood Pressure 121/49 10/04/2021 3:00 PM EST Pulse 79 10/04/2021 2:25 PM EST Temperature 36.5 ??C (97.7 ??F) 10/04/2021 2:35 PM EST Respiratory Rate 18 10/04/2021 3:00 PM EST Oxygen Saturation 96% 10/04/2021 3:00 PM EST Inhaled Oxygen Concentration - - Weight - - Height - - Body Mass Index - - documented in this encounter Discharge Instructions Discharge InstructionsHayley Bautista RN - 10/04/2021 1:32 PM EST Images from the original note were not included. [facility] Department of Vascular and Interventional Radiology Discharge Instructions for your Chest Port You have received a ???Power Port?? , which provides access for infusions and blood draws. What makes this a ???Power Port?? is the unique ability to ???power inject?? contrast (intravenous dye) through the port when getting a CT scan, which produces superior images (pictures). Patients who don???t have these special ports need to have an IV started if they need dye injected for their CT scan. Yourport is printed with the letters ???CT?? which can be detected by x- ray to identify it as a ???Power Port?? . You will be provided with an ID card stating the building appraiser and type of port you have. Please carry this with you in a safe place. Bandage: There is a sterile dressing over the port site consisting of small gauze with a clear dressing (Tegaderm or [id number] ). This dressing should be left in place for 48 hours. If the clear dressing becomes loose you should place tape over the edges to secure it in place. Note: You have Hoyt-espitia (skin glue) beneath your dressing, simply allow this to flake off. Do not peel this off. Pain: Apply ice bag to site (s) at 30 minute intervals (30 minutes on and 30 minutes off) for 24 hours?? . May use as needed for pain and/or bruising after 24 hours. Bathing: Do not take a shower until 48 hours after your port is placed; after this time you may shower with the dressing in place, then remove it and pat your skin dry. After 48 hours, we recommend that you cover the area with THE AQUA GUARD PROVIDED for 1 week while showering, facing away from the shower stream. You may use a bandaid to cover the site after the 48 hours are up if there is any drainage. No tub baths, whirlpools or swimming for one week following port placement. Flushing the mediport: If your port has not been used, it must be flushed every 30 days. What to expect when your port is accessed: 1. You may feel tenderness the first few times it is accessed but generally this subsides over time.Ask your healthcare provider to use a local anesthetic on the site if discomfort is a problem for you. You may ask for a prescription for a topical cream (EMLA) from your clinician; you may apply at home prior to your appointments, to help numb the skin over your port. 2. The clinician should be wearing sterile gloves and a mask during the access procedure. Anyone in the room with you should also have a mask on. 3. The skin over and 2 inches around the port should be cleaned with a disinfectant 4. Tell the clinician if you would like the skin numbed (lidocaine) before the access needle is placed. 5. Unless you are unable to take heparin (blood thinner), the port should be injected with a heparinsolution before deaccess (at end of each treatment or blood draw). When to call your healthcare provider: If you notice bleeding from the puncture site in your neck, or from the port incision on your chest,you should apply firm pressure over the site for 10-15 minutes, keeping the site covered. Call if you are still bleeding after 10-15 minutes. If you develop pain, redness, drainage or swelling at or around the port site, or the puncture site in the neck If you develop fever (elevation of more than 2 degrees or greater than 101F) and/or shaking chills When to call the Interventional Radiology Department: Please call with any questions or concerns. Ifit is during regular office hours, please call [phone]. If it is after regular office hours, oron weekends or holidays, please call [phone] and ask to speak to the Shovel Operator on callfor Interventional Radiology. XXX You have received medication during your procedure to help lessen anxiety and keep you comfortable. These medications affect judgement and reaction time. We recommend that you do not drive, operateequipment, sign any important documents, or smoke unattended for 24 hours following your procedure. Because of the sedation, be careful on stairs, as you may be unsteady on your feet. You may resume your regular diet as tolerated. IV site -- slight redness, or tenderness is normal, you can use a warm compress. If tenderness and redness increases or foul drainage occurs, please contact your M. D. Revised 06/02/19 documented in this encounter Medications at Time of Discharge Medication Sig Dispensed Refills Start Date End Date Ost[place] Supplies [facility] [place] boxes ( 20 each 11 022 /) of Adapt Barrier rings #2825 per month. Ostomy Supplies Powder Dispense 1 bottle of 28.3 g 5 11/2021 Adapt stoma powder #7906 every other month. Ostomy Supplies [facility] [place] 2 boxes 20 each 11 2 (10/box) of Sensura Mears Soft Convex One-piece Pouch #55520 per month. Ostomy Supplies [facility] [place] 2 boxes 40 each 11 2 (20/box) of Brava Elastic Barrier strips #767007 per month. Ostomy Supplies [facility] [place] 1 box 50 each 11 08/20/2021 (50/box) of a generic no-sting skin barrier wipe per month. lidocaine-prilocaine Apply to mediport 30 g 0 10/04/19 22 (EMLA) Cream approximately 30 minutes prior to access. phenytoin (Dilantin) Take 8 tablets(400 mg) 14 tablet 0 11/18/2021 50 mg Tablet, Chewable at 9:00 AM and 6 tablets (300 mg) at 3:00 PM on October 15, 2021 acyclovir (Zovirax) Take 1 tablet by mouth 60 tablet 5 08/1711/18/2021 400 mg Tablet 2 times daily. levoFLOXacin Take 1 tablet by mouth 30 tablet 5 08/28/2021 11/18/2021 (Levaquin) 750 mg daily. Tablet vancomycin (Vancocin) Take 1 capsule by 60 capsule 5 022 11/18/2021 125 mg Capsule mouth 2 times daily. metoprolol succinate Take 1 tablet by mouth 30 tablet 5 07/202211/18/2021 XL (Toprol-XL) 50 mg daily. Tablet Sustained Release 24 hr Colostomy Belt (Ostomy Dispense 1 Sensura Flako 1 each 11 0 08/20/2021 12/13/2021 Belt Medium) [facility] [place]4071 per month. loperamide (Imodium Take 1 capsule by 90 tablet 0 1 11/18/2021 A-D) 2 mg Capsule mouth 3 times daily. tamsulosin (Flomax) Take 1 capsule by 90 tablet 0 1 11/18/2021 0.4 mg Capsule mouth daily. flecainide (TAMBOCOR) Take 1 tablet by mouth 60 tablet 3 11/18/2021 50 mg Tablet 2 times daily. famotidine (Pepcid) 20 Take 2 tablets by 30 tablet 12 202011/22/2021 mg Tablet mouth daily. venetoclax (Venclexta) Take 1 tablet (100 mg) 30 tablet 5 0 09/13/2021 11/18/2021 100 mg by mouth daily for 30 tabletIndications: days. Take with food acute myeloid leukemia and a large glass of water. Call clinic before starting medication. Indications: acute myeloid leukemia, a type of blood cancer sulfamethoxazole-trime Take 1 tablet by mouth 12 tablet 5 0 09/04/2021 11/18/2021 thoprim DS (Bactrim three times a week. DS) 800-160 mg Tablet gilteritinib (Xospata) Take 3 tablets (120 90 tablet 0 08/1712/13/2021 40 mg mg) by mouth daily. 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 Date of : 1960 AGE: 61 y.o. Address: [address] [address] (home) Mobile: Telephone Information: Referring Provider: Parviz Modi REASON FOR VISIT: Order Questions Answers Where will study be performed? [facility] Radiology [120] Is the patient on anticoagulant / antiplatelet therapy ? No Reason for exam and clinical history: Acute leukemia patient requiring IV chemo with poor venous access Does patient require sedation? None Allergies Allergen Reactions ??? Other [Unclassified Drug] Other (See Comments) Artificial Sweetners-lightheadedness, dizziness Pertinent PMH: Patient Active Problem List Diagnosis Code ??? Acute leukemia C95.00 ??? Clostridium difficile colitis A04.72 ??? 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 AML (acute myeloblastic leukemia) C92.00 ??? Paroxysmal atrial fibrillation I48.0 ??? GERD (gastroesophageal reflux disease) K21.9 ??? BPH (benign prostatic hyperplasia) N40.0 Pertinent PSH: Past Surgical History: Procedure Laterality Date ??? ACHILLES TENDON SURGERY ? ? PRO DIAGNOSTIC BONE MARROW BIOPSIES & ASPIRATIONS Right 09/12/2021 ([facility]) BONE MARROW BIOPSY AND ASPIRATION; DIAGNOSTIC performed by Parviz Modi MD [facility] ??? PRO EXPLORATORY OF ABDOMEN Midline 05/26/2021 @EXPLORATORY LAPAROTOMY, WITH/WITHOUT BIOPSY(S) (WRVU 12.54) performed by Mark Hernandes MD [facility] MAIN OR ??? PRO ILEOSTOMY/JEJUNOSTOMY, NONTUBE N/A 05/28/2021 @ILEOSTOMY OR JEJUNOSTOMY, NON TUBE (WRVU 17.59) performed by Colby Walter MD at [facility] MAIN OR ??? PRO REOPEN RECENT ABD EXPLORATORY N/A 05/28/2021 @EXPLORATORY LAPAROTOMY, REOPENING OF RECENT (WRVU 17.63) performed by Colby Walter MD at [facility] MAIN OR ??? TONSILLECTOMY AND ADENOIDECTOMY ??? XR FLUORO GUIDED LUMBAR PUNCTURE N/A 07/12/2021 XR Fluoro Guided Lumbar Puncture 07/12/2021 Frances Green MD [facility] RAD XRAY ??? XR FLUORO GUIDED LUMBAR PUNCTURE FOR IT CHEMOTHERAPY N/A 07/16/2021 XR Fluoro Guided Lumbar Puncture For IT Chemotherapy 07/16/2021 Nas Patino MD [facility] RAD XRAY ??? XR FLUORO GUIDED LUMBAR PUNCTURE FOR IT CHEMOTHERAPY N/A 07/19/2021 XR Fluoro Guided Lumbar Puncture For IT Chemotherapy 07/19/2021 Shae Alford MD [facility] RAD XRAY ??? XR FLUORO GUIDED LUMBAR PUNCTURE FOR IT CHEMOTHERAPY N/A 07/25/2021 XR Fluoro Guided Lumbar Puncture For IT Chemotherapy 07/25/2021 Nas Patino MD [facility] RAD XRAY ??? XR FLUORO GUIDED LUMBAR PUNCTURE FOR IT CHEMOTHERAPY N/A 07/29/2021 XR Fluoro Guided Lumbar Puncture For IT Chemotherapy 07/29/2021 [facility] RAD XRAY ??? XR FLUORO GUIDED LUMBAR PUNCTURE FOR IT CHEMOTHERAPY N/A 08/05/2021 XR Fluoro Guided Lumbar Puncture For IT Chemotherapy 08/05/2021 Nas Patino MD [facility] RAD XRAY ??? XR FLUORO GUIDED LUMBAR PUNCTURE FOR IT CHEMOTHERAPY N/A 08/01/2021 XR Fluoro Guided Lumbar Puncture For IT Chemotherapy 08/01/2021 Yolette Solano, PHLEBOTOMY DIRECTOR [facility] RAD XRAY ??? XR FLUORO GUIDED LUMBAR PUNCTURE FOR IT CHEMOTHERAPY N/A 07/22/2021 XR Fluoro Guided Lumbar Puncture For IT Chemotherapy 07/22/2021 [facility] RAD XRAY ??? XR FLUORO GUIDED LUMBAR PUNCTURE FOR IT CHEMOTHERAPY N/A 08/12/2021 XR Fluoro Guided Lumbar Puncture For IT Chemotherapy 08/12/2021 Jona Lowry MD [facility] RAD XRAY ??? XR FLUORO GUIDED LUMBAR PUNCTURE FOR IT CHEMOTHERAPY N/A 08/26/2021 XR Fluoro Guided Lumbar Puncture For IT Chemotherapy 08/26/2021 Yolette Solano, [facility] RAD XRAY ??? XR FLUORO GUIDED LUMBAR PUNCTURE FOR IT CHEMOTHERAPY N/A 09/05/2021 XR Fluoro Guided Lumbar Puncture For IT Chemotherapy 09/05/2021 Yolette Solano, [facility] RAD XRAY ??? XR FLUORO GUIDED LUMBAR PUNCTURE FOR IT CHEMOTHERAPY N/A 09/09/2021 XR Fluoro Guided Lumbar Puncture For IT Chemotherapy 09/09/2021 Yolette Solano, [facility] RAD XRAY ??? XR FLUORO GUIDED LUMBAR PUNCTURE FOR IT CHEMOTHERAPY N/A 09/27/2021 XR Fluoro Guided Lumbar Puncture For IT Chemotherapy 09/27/2021 Yolette Solano, [facility] RAD XRAY Date/Procedure Meds given/comments 10/04/21 Mediport Placement Fentanyl 225 mcg IV, Versed 4 mg IV, tolerated well 1240 to procedure room 6 via stretcher. Onto table supine. All monitors, O2, safety strap in place. Meds per protocol. Laboratory Results: Lab Results Component Value Date INR 1.1 09/27/2021 Lab Results Component Value Date CREATININE 1.18 09/27/2021 Lab Results Component Value Date K 4.2 09/27/2021 Lab Results Component Value Date PLATELET 152 09/27/2021 documented in this encounter H&P Notes Neno Vigil PA - 10/04/2021 11:41 AM EST Interventional Radiology Interval H&P: Procedure: Planned procedure: Port implant The patient's history and physical exam have been reviewed and completed. There has been no intervalchange from that of the pre-operative history and physical exam done within the last 30 days. Physical Exam: Cardiovascular: Regular, Normal Pulmonary: Breath sounds clear to auscultation The planned procedure (and sedation plan if appropriate), its benefits and risks, and alternatives were discussed with the patient. The patient consented to the procedure. The indications for the procedure are still present. Pre-sedation Assessment: Sedation Plan: moderate (conscious sedation) ASA: 2: Patient with mild systemic disease Mallampati: I: soft palate, fauces, tonsillar pillars and uvula can be seen Confirm NPO status: Yes History of anesthetic complications: No Current medications reviewed: Yes Allergies reviewed: Yes Source Note - Neno Vigil PA - 10/02/2021 10:15 AM EST Images from the original note were not included. Interventional Radiology Focused Pre-procedure H&P: PCP: LEISA Munguia Referring Provider: Parviz Modi Planned procedure: Port implant Procedure indication: Acute myeloid leukemia, intermediate durable venous access for chemotherapy IR workflow: Procedure request received through Interventional Radiology eDH order queue. Order Questions Answers Where will study be performed? [facility] Radiology [120] Is the patient on anticoagulant / antiplatelet therapy ? No Reason for exam and clinical history: Acute leukemia patient requiring IV chemo with poor venous access Does patient require sedation? None History of present illness: Per chart review, Angelica Iverson Jr. is a 61 y.o. male who presents to Interventional Radiology to undergo port implant. This is a patient with diagnosis of AML, proceeding to chemotherapy. First infusion not yet scheduled. Remainder of patient's medical and surgical history, allergies, medications, and social/family history obtained below as previously outlined in patient's medical record. IR history: None Imaging: Assessment: 61 y.o. male with diagnosis of AML presenting to Interventional Radiology for port implant. Plan Planned procedure: Port implant Labs to be performed day of procedure: No labs Sedation: Moderate (Conscious sedation) Prophylactic antibiotic : None Contrast: No contrast Additional medications for procedure: Lidocaine Position: Supine Consent: Pending Medications to discontinue (and days held): None Cytopathology presence needed: No Labs: Lab Results Component Value Date HGB 9.1 (L) 09/27/2021 HCT 27.0 (L) 09/27/2021 WBC 3.2 (L) 09/27/2021 PLATELET 152 09/27/2021 INR 1.1 09/27/2021 BUN 21 (H) 09/27/2021 CREATININE 1.18 09/27/2021 ALBUMIN 4.1 09/27/2021 BILIDIR 0.1 08/08/2021 BILITOT <0.2 (L) 09/27/2021 AST 51 (H) 09/27/2021 ALT 54 09/27/2021 ALKPHOS 112 09/27/2021 Allergies: Other [unclassified drug] Medications: Current Outpatient Medications on File Prior to Encounter Medication Sig Dispense Refill ??? venetoclax (Venclexta) [...] mutation 90 tablet 0 ??? [place] [facility] [place] boxes ( 10/box) of Adapt Barrier rings #3945 per month. 20 each 11 ??? Colostomy Belt (Ostomy Belt Medium) Misc Dispense 1 Sensura Flako Belt #4237 per month. 1 each 11 ??? Ostomy Supplies Powder Dispense 1 bottle of Adapt stoma powder #7906 every other month. 28.3 g 5 ??? Ostomy Supplies Misc Dispense 2 boxes (10/box) of Sensura Flako Soft Convex One-piece Pouch #38294xlo month. 20 each 11 ??? Ostomy Supplies Misc Dispense 2 boxes (20/box) of Brava Elastic Barrier strips #[id number] per month. 40 each 11 ??? Ostomy [...] tablets by mouth daily. 30 tablet 12 No current facility-administered medications on file prior to encounter. Past medical/surgical history: Patient Active Problem List Diagnosis Code [...] MARROW BIOPSIES & ASPIRATIONS Right 09/12/2021 ([facility]) BONE MARROW BIOPSY AND ASPIRATION; DIAGNOSTIC performed by Parviz Modi MD [facility] ??? PRO EXPLORATORY OF ABDOMEN Midline 05/26/2021 @EXPLORATORY LAPAROTOMY, WITH/WITHOUT BIOPSY(S) (WRVU 12.54) performed by Mark Hernandes MD [facility] MAIN OR ??? PRO ILEOSTOMY/JEJUNOSTOMY, NONTUBE N/A 05/28/2021 @ILEOSTOMY OR JEJUNOSTOMY, NON TUBE (WRVU 17.59) performed by Colby Walter MD at [facility] MAIN OR ??? PRO REOPEN RECENT ABD EXPLORATORY N/A 05/28/2021 @EXPLORATORY LAPAROTOMY, REOPENING OF RECENT (WRVU 17.63) performed by Colby Walter MD at [facility] MAIN OR ??? TONSILLECTOMY AND ADENOIDECTOMY ??? XR FLUORO GUIDED LUMBAR PUNCTURE N/A 07/12/2021 XR Fluoro Guided Lumbar Puncture 07/12/2021 Frances Green MD [facility] RAD XRAY ??? XR FLUORO GUIDED LUMBAR PUNCTURE FOR IT CHEMOTHERAPY N/A 07/16/2021 XR Fluoro Guided Lumbar Puncture For IT Chemotherapy 07/16/2021 Nas Patino MD [facility] RAD XRAY ??? XR FLUORO GUIDED LUMBAR PUNCTURE FOR IT CHEMOTHERAPY N/A 07/19/2021 XR Fluoro Guided Lumbar Puncture For IT Chemotherapy 07/19/2021 Shae Alford MD [facility] RAD XRAY ??? XR FLUORO GUIDED LUMBAR PUNCTURE FOR IT CHEMOTHERAPY N/A 07/25/2021 XR Fluoro Guided Lumbar Puncture For IT Chemotherapy 07/25/2021 Nas Patino MD [facility] RAD XRAY ??? XR FLUORO GUIDED LUMBAR PUNCTURE FOR IT CHEMOTHERAPY N/A 07/29/2021 XR Fluoro Guided Lumbar Puncture For IT Chemotherapy 07/29/2021 [facility] RAD XRAY ??? XR FLUORO GUIDED LUMBAR PUNCTURE FOR IT CHEMOTHERAPY N/A 08/05/2021 XR Fluoro Guided Lumbar Puncture For IT Chemotherapy 08/05/2021 Nas Patino MD [facility] RAD XRAY ??? XR FLUORO GUIDED LUMBAR PUNCTURE FOR IT CHEMOTHERAPY N/A 08/01/2021 XR Fluoro Guided Lumbar Puncture For IT Chemotherapy 08/01/2021 Yolette Solano APRN [facility] RAD XRAY ??? XR FLUORO GUIDED LUMBAR PUNCTURE FOR IT CHEMOTHERAPY N/A 07/22/2021 XR Fluoro Guided Lumbar Puncture For IT Chemotherapy 07/22/2021 [facility] RAD XRAY ??? XR FLUORO GUIDED LUMBAR PUNCTURE FOR IT CHEMOTHERAPY N/A 08/12/2021 XR Fluoro Guided Lumbar Puncture For IT Chemotherapy 08/12/2021 Jona Lowry MD [facility] RAD XRAY ??? XR FLUORO GUIDED LUMBAR PUNCTURE FOR IT CHEMOTHERAPY N/A 08/26/2021 XR Fluoro Guided Lumbar Puncture For IT Chemotherapy 08/26/2021 Yolette Solano, [facility] RAD XRAY ??? XR FLUORO GUIDED LUMBAR PUNCTURE FOR IT CHEMOTHERAPY N/A 09/05/2021 XR Fluoro Guided Lumbar Puncture For IT Chemotherapy 09/05/2021 Yolette Solano, [facility] RAD XRAY ??? XR FLUORO GUIDED LUMBAR PUNCTURE FOR IT CHEMOTHERAPY N/A 09/09/2021 XR Fluoro Guided Lumbar Puncture For IT Chemotherapy 09/09/2021 Yolette Solano, [facility] RAD XRAY ??? XR FLUORO GUIDED LUMBAR PUNCTURE FOR IT CHEMOTHERAPY N/A 09/27/2021 XR Fluoro Guided Lumbar Puncture For IT Chemotherapy 09/27/2021 Yolette Solano, [facility] RAD XRAY Social history and habits: Social History Tobacco Use ??? Smoking status: Never Smoker ??? Smokeless tobacco: Never Used Vaping Use ??? Vaping Use: Never used Substance Use Topics ??? Alcohol use: Not Currently Comment: 5 drinks/year ??? Drug use: Never Significant family history: Family History Problem Relation Age of Onset ??? Lung Cancer Father Pertinent ROS: as per HPI Physical exam: Pending (to be performed in interventional radiology the day of procedure) ASA: Pending (to be assessed in interventional radiology the day of procedure) Mallampati class: Pending (to be assessed in interventional radiology the day of procedure) 10/02/2021 LEISA Alcala Neno Vigil PA - 10/02/2021 10:15 AM EST Images from the original note were not included. Interventional Radiology Focused Pre-procedure H&P: PCP: LEISA Munguia Referring Provider: Parviz Modi Planned procedure: Port implant Procedure indication: Acute myeloid leukemia, intermediate durable venous access for chemotherapy IR workflow: Procedure request received through Interventional Radiology eDH order queue. Order Questions Answers Where will study be performed? [facility] Radiology [120] Is the patient on anticoagulant / antiplatelet therapy ? No Reason for exam and clinical history: Acute leukemia patient requiring IV chemo with poor venous access Does patient require sedation? None History of present illness: Per chart review, Angelica Iverson Jr. is a 61 y.o. male who presents to Interventional Radiology to undergo port implant. This is a patient with diagnosis of AML, proceeding to chemotherapy. First infusion not yet scheduled. Remainder of patient's medical and surgical history, allergies, medications, and social/family history obtained below as previously outlined in patient's medical record. IR history: None Imaging: Assessment: 61 y.o. male with diagnosis of AML presenting to Interventional Radiology for port implant. Plan Planned procedure: Port implant Labs to be performed day of procedure: No labs Sedation: Moderate (Conscious sedation) Prophylactic antibiotic : None Contrast: No contrast Additional medications for procedure: Lidocaine Position: Supine Consent: Pending Medications to discontinue (and days held): None Cytopathology presence needed: No Labs: Lab Results Component Value Date HGB 9.1 (L) 09/27/2021 HCT 27.0 (L) 09/27/2021 WBC 3.2 (L) 09/27/2021 PLATELET 152 09/27/2021 INR 1.1 09/27/2021 BUN 21 (H) 09/27/2021 CREATININE 1.18 09/27/2021 ALBUMIN 4.1 09/27/2021 BILIDIR 0.1 08/08/2021 BILITOT <0.2 (L) 09/27/2021 AST 51 (H) 09/27/2021 ALT 54 09/27/2021 ALKPHOS 112 09/27/2021 Allergies: Other [unclassified drug] Medications: Current Outpatient Medications on File Prior to Encounter Medication Sig Dispense Refill ??? venetoclax (Venclexta) [...] Flako Belt #4237 per month. 1 each 11 ??? Ostomy Supplies Powder Dispense 1 bottle of Adapt stoma powder #7906 every other month. 28.3 g 5 ??? Ostomy Supplies Misc Dispense 2 boxes (10/box) of Sensura Mears Soft Convex One-piece Pouch #39889nhe month. 20 each 11 ??? Ostomy Supplies Misc Dispense 2 boxes (20/box) of Brava Elastic Barrier strips #200934 per month. 40 each 11 ??? Ostomy [...] tablets by mouth daily. 30 tablet 12 No current facility-administered medications on file prior to encounter. Past medical/surgical history: Patient Active Problem List Diagnosis Code [...] MARROW BIOPSIES & ASPIRATIONS Right 09/12/2021 ([facility]) BONE MARROW BIOPSY AND ASPIRATION; DIAGNOSTIC performed by Parviz Modi MD [facility] ??? PRO EXPLORATORY OF ABDOMEN Midline 05/26/2021 @EXPLORATORY LAPAROTOMY, WITH/WITHOUT BIOPSY(S) (WRVU 12.54) performed by Mark Hernandes MD [facility] OR ??? PRO ILEOSTOMY/JEJUNOSTOMY, NONTUBE N/A 05/28/2021 @ILEOSTOMY OR JEJUNOSTOMY, NON TUBE (WRVU 17.59) performed by Colby Walter MD at [facility] MAIN OR ??? PRO REOPEN RECENT ABD EXPLORATORY N/A 05/28/2021 @EXPLORATORY LAPAROTOMY, REOPENING OF RECENT (WRVU 17.63) performed by Colby Walter MD at [facility] OR ??? TONSILLECTOMY AND ADENOIDECTOMY ??? XR FLUORO GUIDED LUMBAR PUNCTURE N/A 07/12/2021 XR Fluoro Guided Lumbar Puncture 07/12/2021 Frances Green MD [facility] RAD XRAY ??? XR FLUORO GUIDED LUMBAR PUNCTURE FOR IT CHEMOTHERAPY N/A 07/16/2021 XR Fluoro Guided Lumbar Puncture For IT Chemotherapy 07/16/2021 Nas Patino MD [facility] RAD XRAY ??? XR FLUORO GUIDED LUMBAR PUNCTURE FOR IT CHEMOTHERAPY N/A 07/19/2021 XR Fluoro Guided Lumbar Puncture For IT Chemotherapy 07/19/2021 Shae Alford MD [facility] RAD XRAY ??? XR FLUORO GUIDED LUMBAR PUNCTURE FOR IT CHEMOTHERAPY N/A 07/25/2021 XR Fluoro Guided Lumbar Puncture For IT Chemotherapy 07/25/2021 Nas Patino MD [facility] RAD XRAY ??? XR FLUORO GUIDED LUMBAR PUNCTURE FOR IT CHEMOTHERAPY N/A 07/29/2021 XR Fluoro Guided Lumbar Puncture For IT Chemotherapy 07/29/2021 [facility] RAD XRAY ??? XR FLUORO GUIDED LUMBAR PUNCTURE FOR IT CHEMOTHERAPY N/A 08/05/2021 XR Fluoro Guided Lumbar Puncture For IT Chemotherapy 08/05/2021 Nas Patino MD [facility] RAD XRAY ??? XR FLUORO GUIDED LUMBAR PUNCTURE FOR IT CHEMOTHERAPY N/A 08/01/2021 XR Fluoro Guided Lumbar Puncture For IT Chemotherapy 08/01/2021 Yolette Solano, [facility] RAD XRAY ??? XR FLUORO GUIDED LUMBAR PUNCTURE FOR IT CHEMOTHERAPY N/A 07/22/2021 XR Fluoro Guided Lumbar Puncture For IT Chemotherapy 07/22/2021 [facility] RAD XRAY ??? XR FLUORO GUIDED LUMBAR PUNCTURE FOR IT CHEMOTHERAPY N/A 08/12/2021 XR Fluoro Guided Lumbar Puncture For IT Chemotherapy 08/12/2021 Jona Lowry MD [facility] RAD XRAY ??? XR FLUORO GUIDED LUMBAR PUNCTURE FOR IT CHEMOTHERAPY N/A 08/26/2021 XR Fluoro Guided Lumbar Puncture For IT Chemotherapy 08/26/2021 Yolette Solano, [facility] RAD XRAY ??? XR FLUORO GUIDED LUMBAR PUNCTURE FOR IT CHEMOTHERAPY N/A 09/05/2021 XR Fluoro Guided Lumbar Puncture For IT Chemotherapy 09/05/2021 Yolette Solano, [facility] RAD XRAY ??? XR FLUORO GUIDED LUMBAR PUNCTURE FOR IT CHEMOTHERAPY N/A 09/09/2021 XR Fluoro Guided Lumbar Puncture For IT Chemotherapy 09/09/2021 Yolette Solano, [facility] RAD XRAY ??? XR FLUORO GUIDED LUMBAR PUNCTURE FOR IT CHEMOTHERAPY N/A 09/27/2021 XR Fluoro Guided Lumbar Puncture For IT Chemotherapy 09/27/2021 Yolette Solano, [facility] RAD XRAY Social history and habits: Social History Tobacco Use ??? Smoking status: Never Smoker ??? Smokeless tobacco: Never Used Vaping Use ??? Vaping Use: Never used Substance Use Topics ??? Alcohol use: Not Currently Comment: 5 drinks/year ??? Drug use: Never Significant family history: Family History Problem Relation Age of Onset ??? Lung Cancer Father Pertinent ROS: as per HPI Physical exam: Pending (to be performed in interventional radiology the day of procedure) ASA: Pending (to be assessed in interventional radiology the day of procedure) Mallampati class: Pending (to be assessed in interventional radiology the day of procedure) 10/02/2021 LEISA Alcala documented in this encounter Plan of Treatment Upcoming Encounters Date Type Specialty Care Team Description 02/18/2022 Infusion Hematology and Oncology 02/21/2022 Infusion Hematology and Oncology 02/24/2022 Appointment Hematology and Oncology 02/24/2022 Office Visit Hematology and Oncology Parviz Modi MD [facility] [address] HEMATOLOGY/[place] [address] Miroslava Pelayo APRN [facility] [address] HEMATOLOGY/[place] [address] 02/24/2022 Office Visit Wound Care 02/24/2022 Appointment Hematology and Oncology 02/26/2022 Office Visit Neurology Leni Bustamante MD [facility] [address] NEUROLOGY DEPT. [place], [place] [address] (Wo rk) documented as of this encounter Procedures Procedure Name Priority Date/Time Associated Diagnosis Comme nts IR MEDIPORT Routine 10/04/2021 2:37 PM Acute myeloid Results for this PLACEMENT EST leukemia not having procedur e are in achieved remissi on the results Stem cell transplant section . candidate documented in this encounter Results IR Mediport Placement (10/04/2021 2:37 PM EST) Anatomical Region Laterality Modality X-Ray Angiography Specimen (Source) Anatomical Location Collection Method / Collectio n Time Received Time / Laterality Volume Narrative 10/06/2021 11:29 AM EST Interventional Radiology Procedure Note Procedure: Subcutaneous venous port impl ant Indication: Acute myeloid leukemia, dura ble intermediate central venous access for chemotherapy Procedure summary: 1.) Venous access with ultrasound guidan ce 2.) Tunneled port insertion under fluoro scopic guidance Pre-procedure: Informed consent for the procedure including risks, benefits, and alternatives was obtained. Active time-out was performed prior to the procedure. Maximum sterile barrier technique was used throughout the procedure. Sedation: The patient received split dos es of intravenous midazolam and fentanyl from the interventional radiolo gy nurse while pulse, pressure, and oxygen saturation were continuously monitored. Technique: The patient's neck was sonogr aphically evaluated for potential access sites, and the right internal jug ular vein was determined to be patent. Local anesthetic was administere d. The vein was accessed via real-time ultrasound and micropuncture s et with 21 gauge needle and a permanent image was stored. A 0.018 wir e was advanced into superior vena cava. The remainder of the procedure was perfo rmed under fluoroscopic guidance. A 4 Fr introducer sheath was placed and the wire exchanged for a 0.035 J wire. The wire was advanced into the inf erior vena cava. Local anesthetic was administered on the anterior chest w all inferolateral to the puncture site. A 2 cm transverse incision was mad e in the right anterior chest wall, and with blunt dissection the port pocket was created. A trocar was then used to advance the catheter subcut aneously to the venous access site. A 4 Fr introducer sheath was excha nged for a peel-away sheath over the wire. The wire and inner obturator w ere removed and the catheter advanced into the superior vena cava und er fluoroscopic guidance. The catheter was trimmed to appropriate jona th and attached to the port. The port was inserted into the pocket and th e sheath was removed. Catheter tip location was identified and a permanent image was stored. The port flushed and aspirated well. ??The pocket was clare sed using a two-layer technique with 2-0 vicryl deep interrupted and 4-0 vicryl running sutures. The skin closed was with dermabond. The port was left accessed. Medications: Lidocaine 1% 10 mL subcut; lidocaine 1% with epinephrine 1:100,000 <20 mL subcut; midazolam 4 mg IV; fentanyl 225 mcg IV; Contrast: None Fluoroscopy: 5.9 mGy Estimated blood loss: 3 mL Complications: No immediate Impression: Patent right internal jugula r vessel by sonographic evaluation. Implantation of power-inject able, Medcomp 8 Fr Dignity Mini Profile single-lumen port in right chest with tip in the superior cavoatrial junction. The port may be use d immediately. Service provider: Kelli Diaz ?? DONG I supervised the physician trainee during the entire procedure with out the presence of an attending radiologist. I was present during the in ter-service time as documented by the interventional radiology nurse. Resident: Josh Jeffers Attending of record: Deng Talbot MD ? ? 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 - Titration dose 25-50 mcg IV, (based on patient response) every 3 minutes PRN, to maintain procedural pain less than 2 per pain Scale. Maximum dose: 50 mcg/dose, 250 mcg/hour For use in Interventional Radiology (IR) only for procedural sedation with direct provider supervision and verbal order., Angio/IR (Day of Procedure), Routine Given 10/04/2021 2:00 PM EST 50 mcg Given 10/04/2021 1:35 PM EST 50 mcg lidocaine (Xylocaine) 1% (10 mg/mL) injection Given 1:24 PM EST 10 mg 10 mg 10 mg, Subcutaneous, ONCE, 1 dose, On Thu10/04/21 at 1200, For use in Interventional Radiology (IR) only for procedure with direct provider supervision and verbal order., Angio/IR (Day of Procedure), Routine lidocaine-EPINEPHrine (2% - 1:100,000) Given 10/04/2021 1:42 PM EST 20 mLs injection vial 20 mL 20 mL, Intradermal, ONCE, 1 dose, On Thu10/04/21 at 1200, Warning Vesicant/Irritant Medication , Angio/IR (Day of Procedure), Routine midazolam (pf) (Versed) (1 mg/mL) multi-dose Given 10/04/2021 2: 00 PM EST 1 mg injection 0.5-1 mg 0.5-1 mg, Intravenous, EVERY 3 MIN PRN, Starting on Thu10/04/21 at 1132, Until Thu10/04/21 at 1527, Sleep, - Start dose; 1 mg (Reduce dose to 0.5 mg if history of sedation sensitivity). - Titration dose: 0.5 mg - 1 mg (based on patient response) every 3 minutes PRN to obtain RASS score of -3. Maximum dose: 1 mg per dose, 5 mg/hour. For use in Interventional Radiology (IR) only for procedural sedation with direct provider supervision and verbal order., Angio/IR (Day of Procedure), Routine Given 10/04/2021 1:35 PM EST 1 mg Given 10/04/2021 1:22 PM EST 1 mg sodium chloride 0.9 % (flush) (BD PosiFlush Given 10/04/2021 12:00 PM EST 5 mLs Normal Saline 0.9) flush 5 mL 5 mL, Intravenous, 2 TIMES DAILY, First dose on Thu10/04/21 at 1200, Until Discontinued, Angio/IR (Day of Procedure), Routine documented in this encounter Additional Health Concerns Infection Onset Date Last Indicated Resolved Time History of C. difficileComment: C. diffiicile 08/20/2021 testing positive 05/25/21. documented as of this encounter Care Teams Box Person Relationship Specialty Start Date End Date Beatriz Maurice PA PCP - General Family Medicine 05/06/21 [address] [place] [address] documented as of this encounter
--- OUTSIDE RECORDS SUMMARY | 2022-02-14 11:14 | XMS_ITS | Encounter Summary ---
:1960 Author Organization [facility] Address [address] [place] [address] Care Team Providers Name Role Phone Beatriz Maurice Primary Care Provider Encounter Details Date Type Department Care Team Description 10/04/2021 Hospital Encounter Hematology and Acute m yeloid leukemia not having achieved remission; Oncology at [facility] Anemia, unspecified type; [facility] Thrombocy topenia; Drive Leukocytosis, unspecified ty pe; [place] [address] H/O Clostridium difficile in fection; [phone]; S/P partial res ection of colon Social History Tobacco Use Types Packs/Day Years [...] 2 boxes ( 20 each 11 022 10/) of [employer] Barrier rings #7805 per month. Ostomy Supplies Powder Dispense 1 bottle of 28.3 g 11/2021 Adapt stoma powder #7906 every other month. Ostomy Supplies [facility] Dispense 2 boxes 20 each 2 (10/box) of Sensura [place] Soft Convex One-piece Pouch #21114 per month. Ostomy Supplies [facility] Dispense 2 boxes 40 each (20/box) of Brava Elastic Barrier strips #[id number] per month. Ostomy Supplies [facility] Dispense 1 box 50 each 08/20/2021 (50/box) of a generic no-sting skin barrier wipe per month. acyclovir (Zovirax) 400 Take 1 tablet by 60 tablet 5 202111/18/2021 mg Tablet mouth 2 times daily. levoFLOXacin (Levaquin) Take 1 tablet by 30 tablet 5 202111/18/2021 750 mg Tablet mouth daily. vancomycin (Vancocin) Take 1 capsule by 60 capsule 022 11/18/2021 125 mg Capsule mouth 2 times daily. metoprolol succinate XL Take 1 tablet by 30 tablet 5 202111/18/2021 (Toprol-XL) 50 mg Tablet mouth daily. Sustained Release 24 hr Colostomy Belt (Ostomy Dispense 1 Sensura 1 each 08/2012/13/2021 Belt Medium) [facility] Belt #4237 per month. loperamide (Imodium A-D) Take 1 capsule by 90 tablet 0 07/1811/18/2021 2 mg Capsule mouth 3 times daily. tamsulosin (Flomax) 0.4 Take 1 capsule by 90 tablet 0 08/0811/18/2021 mg Capsule mouth daily. flecainide (TAMBOCOR) 50 Take 1 tablet by 60 tablet 3 06/1911/18/2021 mg Tablet mouth 2 times daily. famotidine (Pepcid) 20 Take 2 tablets by 30 tablet 12 202011/22/2021 mg Tablet mouth daily. venetoclax (Venclexta) Take 1 tablet (100 30 tablet 5 09/1311/18/2021 100 mg mg) by mouth daily tabletIndications: acute for 30 days. Take myeloid leukemia with food and a large glass of water. Call clinic before starting medication. Indications: acute myeloid leukemia, a type of blood cancer sulfamethoxazole-trimeth Take 1 tablet by 12 tablet 5 09/0411/18/2021 oprim DS (Bactrim DS) mouth three times a 800-160 mg Tablet week. gilteritinib (Xospata) Take 3 tablets (120 90 tablet 0 08/1712/13/2021 40 mg tabletIndications: mg) by mouth daily. 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 [address] Miroslava Pelayo APRN [facility] [address] HEMATOLOGY/[place] [address] 02/24/2022 Office Visit Wound Care 02/24/2022 Appointment Hematology and Oncology 02/26/2022 Office Visit Neurology Leni Bustamante MD [facility] DR NEUROLOGY DEPT. [place], [place] [address] (Wo rk) documented as of this encounter Procedures Procedure Name Priority Date/Time Associated Diagnosis Comme nts TYPE AND SCREEN STAT 10/04/2021 9:07 AM Result s for this VALIDITY EST procedure are i n the results section. ABORH RECHECK STATUS STAT 10/04/2021 9:07 AM R esults for this EST procedure are i n the results section. HEMOGRAM STAT 10/04/2021 9:07 AM Acute myeloid Results for this EST leukemia not having procedur e are in achieved remissi on the results Anemia, unspecified section. 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 ce S/P partial resection of colon DIFFERENTIAL, STAT 10/04/2021 9:07 AM Acute myeloid Results for this AUTOMATED EST leukemia not having procedur e are in achieved remissi on the results Anemia, unspecified section. 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 ce S/P partial resection of colon ABO/RH TYPING STAT 10/04/2021 9:07 AM Acute myeloid Results for this EST leukemia not having procedur e are in achieved remissi on the results Anemia, unspecified section. 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 ce S/P partial resection of colon HC CBC,PLT & AUTO STAT 10/04/2021 9:07 AM Acute myeloid DIFF EST leukemia not having achieved remissi on Anemia, unspecified 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 ce S/P partial resection of colon ANTIBODY SCREEN STAT 10/04/2021 9:07 AM Acute myeloid Resul ts for this EST leukemia not having procedur e are in achieved remissi on the results Anemia, unspecified section. 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 ce S/P partial resection of colon HC ANTIBODY STAT 10/04/2021 9:07 AM Acute myeloid DETECTION,CAPTURE-R EST leukemia not having achieved remissi on Anemia, unspecified 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 ce S/P partial resection of colon HC VENIPUNCTURE Routine 10/04/2021 9:07 AM Acute myeloid Resul ts for this EST leukemia not having procedur e are in achieved remissi on the results Anemia, unspecified section. 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 ce S/P partial resection of colon documented in this encounter Results Type and Screen Validity (10/04/2021 9:07 AM EST) [facility] Method Time Signature T&S only valid [facility] LABORATORY Comment: This Type and Screen result is only valid at the [facility] Hospital Specimen Anatomical Collection Method Collection Time Receive d Time (Source) Location / / Volume Laterality Blood 10/04/2021 9:07 AM 2 9:20 EST AM EST Resulting Agency Comment Spec In Lab Parviz Modi MD BLOOD BANK ORDERABLES Performing Organization Address City/[facility]/ZIP [place] [address] ABORH Recheck Status (10/04/2021 9:07 AM EST) [facility] Method Time Signature ABORH Type Completed [facility] LABORATORY Specimen Anatomical Collection Method Collection Time Receive d Time (Source) Location / / Volume Laterality Blood 10/04/2021 9:07 AM 2 9:20 EST AM EST Resulting Agency Comment Spec In Lab Parviz Modi MD BLOOD BANK ORDERABLES Performing Organization Address City/[facility]/ZIP Code Phon e Number [address] Antibody screen (10/04/2021 9:07 AM EST) [facility] Method Oral Signature Ab Screen Negative [facility] LABORATORY Expires at 10/07/[address] [facility] 2359 on: [facility] LABORATORY Specimen Anatomical Collection Method Collection Time Receive d Time (Source) Location / / Volume Laterality Blood 10/04/2021 9:07 AM 2 9:20 EST AM EST Resulting Agency Comment Spec In Lab Parviz Modi MD BLOOD BANK ORDERABLES Performing Organization Address City/[facility]/ZIP [place] [address] (ABNORMAL) Differential, Automated (10/04/2021 9:07 AM EST) [facility] Method Time Signature Neutrophils % 65.4 % [facility] LABORATORY Neutr Abs (ANC) 2.42 1.70 - [facility] 6.10 [facility] x10(3)/[facility] LABORATORY Lymphocytes % 20.5 % [facility] LABORATORY Lymphocytes Abs 0.8 (L) 0.9 - 3.[address] [facility] x10(3)/[facility] LABORATORY Monocytes % 13.0 % [facility] LABORATORY Monocyte Abs 0.5 0.3 - 0.[address] [facility] x10(3)/[facility] LABORATORY Eosinophils % 0.0 % [facility] LABORATORY Eosinophils Abs 0.0 0.0 - 0.[address] [facility] x10(3)/[facility] LABORATORY Basophils % 0.0 % [facility] LABORATORY Basophils Abs 0.0 0.0 - 0.[address] [facility] x10(3)/[facility] LABORATORY Immature Gran % 1.10 % [facility] LABORATORY Comment: Immature granulocytes(IG's)percentage an d absolute count will include metamyelocytes, myelocytes, and promyelo cytes. Blood smears from CBCs yielding IG's will be scanned manually for concor dance. If this scan disagrees with the automated IG or if promyelocytes are not ed, a manual differential will be performed. Zara Gran Abs 0.04 0.00 - 0.04 x10(3)/[facility] LABORATORY Specimen Anatomical Collection Method Collection Time Receive d Time (Source) Location / / Volume Laterality Blood 10/04/2021 9:07 AM 2 9:18 EST AM EST Resulting Agency Comment Spec In Lab Praviz Modi MD HEMATOLOGY ORDERABLES Performing Organization Address City/[facility]/ZIP [place] [address] ABO/Rh Typing (10/04/2021 9:07 AM EST) P athologist Signature ABORh Type O Pos [facility] LABORATORY Specimen Anatomical Collection Method Collection Time Receive d Time (Source) Location / / Volume Laterality Blood 10/04/2021 9:07 AM 2 9:20 EST AM EST Resulting Agency Comment Spec In Lab Parviz Modi MD BLOOD BANK ORDERABLES Performing Organization Address City/[facility]/ZIP [place] [address] (ABNORMAL) Hemogram (10/04/2021 9:07 AM EST) Patholo gist Method Time Signature WBC 3.7 (L) 4.0 - 9.5 [facility] x10(3)/[facility] LABORATORY RBC 2.73 (L) 4.58 - JIA ARASELI 5.54 [facility] x10(6)/[facility] LABORATORY Hemoglobin 9.4 (L) 13.7 - [facility] 16.5 g/dL [facility] Hematocrit 28.7 (L) 40.5 - [facility] 48.5 % [facility] LAB[facility]AT[facility] MCV 105.1 (H) 82.9 - [facility] 93.1 [facility] LABORATORY MCH 34.4 (H) 27.5 - [facility] 32.1 pg [facility] MCHC 32.8 32.0 - [facility] 35.7 g/dL [facility] Platelets 139 (L) 145 - [address] [facility] x10(3)/[facility] LABORATORY RDWSD 89.0 (H) 36.0 - [facility] 45.0 [facility] LABORATORY RDWCV 24.7 (H) 11.4 - [facility] 13.8 % [facility] LABORAT[facility] MPV 10.8 7.6 - 12.9 [facility] LABORATORY nRBC % Auto 1.1 % [facility] LABORATORY nRBC Abs Auto 0.040 (H) 0.000 - [facility] ARASELI 0.000 [facility] x10(3)/[facility] LABORATORY Specimen Anatomical Collection Method Collection Time Receive d Time (Source) Location / / Volume Laterality Blood 10/04/2021 9:07 AM 9:18 EST AM EST Resulting Agency Comment Spec In Lab Parviz Modi MD HEMATOLOGY ORDERABLES Performing Organization Address City/State/[place] [address] (ABNORMAL) Comprehensive metabolic panel (non-fasting) (10/04/2021 9:07 AM EST) P athologist Signature Glucose Lvl 85 65 - [address] [facility] mg/dL [facility] Comment: Diabetes: >=200 mg/dL plus symp toms BUN 24 (H) 10 - 20 mg/dL [facility] LABORATORY Creatinine 1.31 0.80 - 1.50 mg/dL [facility] LABOR[facility]ORY Sodium 140 135 - 145 mmol/L [facility] LABORAT[facility] Potassium 4.8 3.5 - 5.0 mmol/L [facility] LABORATORY Comment: Please note: ??Patients with WBC >100,00 0 may have falsely elevated Potassium levels. ??For accurate Potassium quantif ication in these patients send serum separator tube (gold top) for subsequent determinations. ??Contact the Clinical Chemistry Laboratory if there are any qu estions. Chloride 110 (H) 98 - 107 mmol/L [facility] LABOR[facility] CO2 18 (L) 22 - 31 mmol/L [facility] LABOR[facility] Anion Gap 12 5 - 15 mmol/L [facility] LABORATORY Calcium 9.5 8.5 - 10.5 mg/dL [facility] LAB[facility] Total Protein 7.6 6.1 - 8.0 g/dL [facility] Albumin 4.2 3.2 - 5.2 g/dL [facility] AST 53 (H) 0 - 39 unit/L [facility] LABORATORY ALT 56 (H) 0 - 55 unit/L [facility] LABORATORY Alk Phos 114 40 - 130 unit/L [facility] Total Bilirubin <0.2 (L) 0.2 - 1.3 mg/dL [facility] LABORATORY Estimated GFR 58 (L) >=60 mL/min/1.73 m?? [facility] LAB[facility] Comment: This patient? 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 difficileComment: C. diffiicile 08/20/2021 testing positive 05/25/21. documented as of this encounter Care Teams Crm Solution Architect Relationship Specialty Start Date End Date Beatriz Maurice PA PCP - General Family Medicine 05/06/21 [address] [place] [address] documented as of this encounter
--- OUTSIDE RECORDS SUMMARY | 2022-02-14 11:14 | XMS_ITS | Encounter Summary ---
:1960 Author Organization [facility] [place] [address] Care Team Providers Name Role Phone Beatriz Maurice Primary Care Provider Reason for Visit Reason Onset Date Comments Other 09/27/2021 [place] re. [place] Encounter Details Date Type Department Care Team Description 09/27/2021 Telephone Hematology and Nichelle Barnard, Other ( [facility] rep re. Oncology at [facility] [place] Medicaid/PFA) [place] [address] Social History Tobacco Use Types Packs/Day [...] Encounter - Nichelle Barnard MSW - 09/27/2021 9:11 AM EST [facility] Patient Advocate Ana Valente returned CCM-PHYSICAL THERAPY COORDINATOR's e-mail which asked what the determination was when PHYSICAL THERAPY COORDINATOR made a referral for screening for PFA back in June 2021. Ana wrote that, At that time the patient didn't qualify for Medicaid, they have no balance currently at . If their income changes or are at risk of losing their current coverage they are more than welcome to reach out to us at that point. PHYSICAL THERAPY COORDINATOR will move forward with applying to [facility] Co-pay Assistance Zeferino for [place], which is $10,000 for AML and will help him pay his insurance premiums that are in arrears. SW Intervention: Financial resources Patient Financial Assistance/Insurance documented in this encounter Plan of Treatment Upcoming Encounters Date Type Specialty Care Team Description 02/18/2022 Infusion Hematology and Oncology 02/21/2022 Infusion Hematology and Oncology 02/24/2022 Appointment Hematology and Oncology 02/24/2022 Office Visit Hematology and Oncology Parviz Modi MD [facility] DR HEMATOLOGY/[place] [address] Miroslava Pelayo APRN [facility] [address] HEMATOLOGY/[place] [address] 02/24/2022 Office Visit Wound Care 02/24/2022 Appointment Hematology and Oncology 02/26/2022 Office Visit Neurology Leni Bustamante MD [facility] DR NEUROLOGY DEPT. [place], [place] [address] (Wo rk) documented as of this encounter Visit Diagnoses Not on filedocumented in this encounter Additional Health Concerns Infection Onset Date Last Indicated Resolved Time History of C. difficileComment: C. diffiicile 08/20/2021 testing positive 05/25/21. documented as of this encounter Care Teams Offal Baler Relationship Specialty Start Date End Date Beatriz Maurice PA PCP - General Family Medicine 05/06/21 [address] [place] [address] documented as of this encounter
--- OUTSIDE RECORDS SUMMARY | 2022-02-14 11:14 | XMS_ITS | Encounter Summary ---
:1960 Author Organization [facility] [address] Care Team Providers Name Role Phone Beatriz Maurice Primary Care Provider Encounter Details Date Type Department Care Team Description 10/08/2021 Telephone Public Health at [facility] Yolette Dean [facility] [place] [address] Social History Tobacco Use Types Packs/Day [...] Hematology and Oncology Parviz Modi MD [facility] DR HEMATOLOGY/[place] [address] Miroslava Pelayo APRN [facility] DR HEMATOLOGY/[place] [address] 02/24/2022 Office Visit Wound Care 02/24/2022 Appointment Hematology and Oncology 02/26/2022 Office Visit Neurology Leni Bustamante MD [facility] NEUROLOGY DEPT. [place], [place] [address] (Wo rk) documented as of this encounter Visit Diagnoses Not on filedocumented in this encounter Additional Health Concerns Infection Onset Date Last Indicated Resolved Time History of C. difficileComment: C. diffiicile 08/20/2021 testing positive 05/25/21. documented as of this encounter Care Teams Speech Language Specialist Relationship Specialty Start Date End Date Beatriz Maurice PA PCP - General Family Medicine 05/06/21 [address] [place] [address] documented as of this encounter
--- OUTSIDE RECORDS SUMMARY | 2022-02-14 11:14 | XMS_ITS | Encounter Summary ---
:1960 Author Organization [facility] Address One [facility] [place] [place] [address] Care Team Providers Name Role Phone Beatriz Maurice Primary Care Provider Encounter Details Date Type Department Care Team Description 09/27/2021 Orders Only Hematology and Parviz Modi Acute leukemia not Oncology at [facility] MD Mars having achieved One [facility] [address] remission (Primary Drive HEMATOLOGY/ONCOLOGY Dx) [place], [place] DEPT. [address] [place] [address] [phone] (Wo rk) Social History Tobacco Use Types [...] Modi MD [facility] DR HEMATOLOGY/[place] [address] Miroslava Pelayo APRN [facility] HEMATOLOGY/[place] [address] 02/24/2022 Office Visit Wound Care 02/24/2022 Appointment Hematology and Oncology 02/26/2022 Office Visit Neurology Leni Bustamante MD [facility] NEUROLOGY DEPT. [place], [place] [address] (Wo rk) documented as of this encounter Visit Diagnoses Diagnosis Acute leukemia not having achieved remis sharon - Primary Acute leukemia of unspecified cell type, without mention of having achieved remission documented in this encounter Additional Health Concerns Infection Onset Date Last Indicated Resolved Time History of C. difficileComment: C. diffiicile 08/20/2021 testing positive 05/25/21. documented as of this encounter Care Teams Radiology Manager Relationship Specialty Start Date End Date Beatriz Maurice PA PCP - General Family Medicine 05/06/21 [address] [place] [address] documented as of this encounter
--- OUTSIDE RECORDS SUMMARY | 2022-02-14 11:14 | XMS_ITS | Encounter Summary ---
:1960 Author Organization [facility] Address [facility] [place] [address] Care Team Providers Name Role Phone Beatriz Maurice Primary Care Provider Encounter Details Date Type Department Care Team Description 10/14/2021 Orders Only Hematology and Oncology Parviz Modi MD at [facility] Catie narvaez HEMATOLOGY/[place] [address] [place] [address] [phone] (Wo rk) Social History Tobacco Use Types [...] Visit Hematology and Oncology Parviz Modi MD [facility] DR HEMATOLOGY/[place] [address] Miroslava Pelayo APRN [facility] HEMATOLOGY/[place] [address] 02/24/2022 Office Visit Wound Care 02/24/2022 Appointment Hematology and Oncology 02/26/2022 Office Visit Neurology Leni Bustamante MD [facility] NEUROLOGY DEPT. [place], [place] [address] (Wo rk) documented as of this encounter Visit Diagnoses Not on filedocumented in this encounter Additional Health Concerns Infection Onset Date Last Indicated Resolved Time History of C. difficileComment: C. 08/20/2021 08/20/2021 diffiicile testing positive 05/25/21. Rule Out C. difficile 10/19/2021 10/19/2021 10/19/2021 4:07 PM EST documented as of this encounter Care Teams Computer Operations Manager Relationship Specialty Start Date End Date Beatriz Maurice PA PCP - General Family Medicine 05/06/21 [address] [place] [address] documented as of this encounter
--- OUTSIDE RECORDS SUMMARY | 2022-02-14 11:14 | XMS_ITS | Encounter Summary ---
:1960 Author Organization [facility] [place] [address] Care Team Providers Name Role Phone Beatriz Mauirce Primary Care Provider Encounter Details Date Type Department Care Team Description 10/04/2021 Orders Only Hematology and Parviz Modi Stem c ell transplant Oncology at [facility] MD Mars candidate [facility] EN[facility] [place] HEMATOLOGY/ONCOLOGY [place], [place] DEPT. 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 ?? Herber is here today to meet with Dr. Modi and myself for a consenting visit. Consent for transplant has been signed. [facility] consents will be reviewed and signed on Saturday 10/07. ?? Herber is having a mediport placed today. We discussed the use of emla cream, application, and benefit. A prescription was sent to the OP Pharm at [facility]. ?? We discussed the use of phenytoin on day of admission and during transplant. A prescription was sent to the OP Pharm at [facility]. ?? Herber has been instructed to stop venetoclax and Xospata on 10/08/21. ?? Herber has been instructed to not take tylenol or tylenol containing products beginning 10/12/21. ?? Herber will return with ARSENIO Nielsen for ongoing BMT education on 10/07 with this RN. ?? Herber has ongoing vision changes since relapse in July. We are trying to get him in to see Ophthomology before admit but may need to defer to post transplant follow up. ?? Herber has been cleared by cardiology to proceed to transplant. We have asked that the cardiac stress test be rescheduled to December. ?? Herber takes flecanide. ?? A recap of our meeting was emailed to Herber. A: Herber verbalized understanding of the plan. P: RTC 10/07 for BMT teach and bm biopsy Admit 10/15/21 for transplant documented in this encounter Plan of Treatment Upcoming Encounters Date Type Specialty Care Team Description 02/18/2022 Infusion Hematology and Oncology 02/21/2022 Infusion Hematology and Oncology 02/24/2022 Appointment Hematology and Oncology 02/24/2022 Office Visit Hematology and Oncology Parviz Modi MD [facility] [address] HEMATOLOGY/[place] [address] Miroslava Pelayo APRN [facility] HEMATOLOGY/[place] [address] 02/24/2022 Office Visit Wound Care 02/24/2022 Appointment Hematology and Oncology 02/26/2022 Office Visit Neurology Leni Bustamante MD [facility] NEUROLOGY DEPT. [place], [place] [address] (Wo rk) documented as of this encounter Visit Diagnoses Diagnosis Stem cell transplant candidate documented in this encounter Additional Health Concerns Infection Onset Date Last Indicated Resolved Time History of C. difficileComment: C. diffiicile 08/20/2021 testing positive 05/25/21. documented as of this encounter Care Teams Pediatric Occupational Therapist Relationship Specialty Start Date End Date Beatriz Maurice PA PCP - General Family Medicine 05/06/21 [address] [place] [address] documented as of this encounter
--- OUTSIDE RECORDS SUMMARY | 2022-02-14 11:14 | XMS_ITS | Encounter Summary ---
:1960 Author Organization [facility] [place] [address] Care Team Providers Name Role Phone AjithBeatriz patricia Primary Care Provider Reason for Referral Diagnostic Test (Routine) - Closed Specialty Diagnoses / Procedures Referred By Contact Refer red To Contact Radiology Diagnoses Stem cell transplant candidate Parviz Modi MD [facility] Interventionl Rad Procedures IR Tunneled Central Venous Access Non-Dialysis [facility] HEMATOLOGY/[place] [address] [place] [address] Referral ID Status Reason Start Date Expiration Date Visits V isits Requested Authorized [id number] Closed Specialty 09/16/2021 03/16/2023 1 1 Service Requested Reason for Visit Auth/Cert Specialty Diagnoses / [...] Expiration Date Visits Requ ested Visits Authorized [id number] 1 1 Encounter Details Date Type Department Care Team Description 10/15/2021 Hospital Encounter Radiology at [facility] Parviz Modi Stem cell [facility] MD [address] [facility] [address] HEMATOLOGY/ONCOLOGY [phone] DEPT. [place], [place] [address] (Wo rk) Social History Tobacco [...] Sign Reading Time Taken Comments Blood Pressure 106/71 10/15/2021 1:30 PM EST Pulse 83 10/15/2021 1:00 PM EST Temperature 36.6 ??C (97.9 ??F) 10/15/2021 1:10 PM EST Respiratory Rate 18 10/15/2021 1:30 PM EST Oxygen Saturation 98% 10/15/2021 1:30 PM EST Inhaled Oxygen Concentration - - Weight - - Height - - Body Mass Index - - documented in this encounter Medications at Time [...] of Sensura Flako Soft Convex One-piece Pouch #[id number] per month. Ostomy Supplies Misc Dispense 2 boxes 40 each 2 (20/box) of Brava Elastic Barrier strips #[id number] per month. Ostomy Supplies Misc Dispense 1 box (50/box) 50 each of a generic no-sting skin barrier wipe per month. tamsulosin (Flomax) Take 1 capsule by mouth 90 tablet 0 11/2021 0.4 mg Capsule daily. flecainide (TAMBOCOR) Take [...] 24 hr Colostomy Belt Dispense 1 Sensura Flako 1 each 2 12/13/2021 (Ostomy Belt Medium) Belt #[id number] per month. [facility] loperamide (Imodium Take 1 capsule by mouth [...] tablet 12 10/202011/22/2021 20 mg Tablet daily. loperamide (Imodium Take 1 capsule by mouth 90 tablet 0 11/202112/09/2021 A-D) 2 mg Capsule 3 times daily. metoprolol succinate Take 1 tablet by mouth 30 tablet 5 11/202112/13/2021 XL (Toprol-XL) 50 mg daily. Tablet Sustained Release 24 hr sulfamethoxazole-trim Take 1 tablet by mouth 12 tablet 5 11/18/2021 ethoprim DS (Bactrim three times a week. DS) 800-160 mg Tablet vancomycin (Vancocin) Take 1 capsule by mouth 60 capsule 5 0 11/18/2021 02/03/2022 125 mg Capsule 2 times daily. sulfamethoxazole-trim Take 1 tablet by mouth 12 tablet 5 12/13/2021 ethoprim DS (Bactrim three times a week. DS) 800-160 mg Tablet Please start on 11/21. Take 3 time a week on Thursday, Thursday, and Thursday acyclovir (Zovirax) Take 1 tablet by mouth 60 tablet 0 04/0 10/202112/09/2021 800 mg Tablet 2 times daily. acyclovir (Zovirax) Take 1 tablet by mouth 10 tablet 1 04/0 08/202111/17/2021 800 mg Tablet 2 times daily. fluconazole Take 2 tablets by mouth 60 tablet 0 11/16/2021 12/17/2021 (Diflucan) 200 mg daily for 30 days. Tablet pantoprazole EC Take 1 tablet by mouth 90 tablet 3 11/17/19 22 02/03/2022 (Protonix) 40 mg daily. Tablet, Delayed Release (E.C.) gabapentin Take 2 capsules by 90 capsule 12 11/15/20212021 (Neurontin) 100 mg mouth 3 times daily. Capsule tacrolimus (Prograf) Take 1 capsule by mouth 30 capsule 0 12/13/2021 1 mg nightly for 30 days. CapsuleIndications: Acute myeloid leukemia in remission tacrolimus (Prograf) Take 3 capsules by 30 capsule 0 022 12/02/2021 0.5 mg mouth daily. CapsuleIndications: Acute myeloid leukemia in remission rosuvastatin Take 1 tablet by mouth 90 tablet 3 11/15/2021 02/10/2022 (Crestor) 40 mg daily. Tablet aspirin 81 mg Tablet, Take 81 mg by mouth 30 tablet 3 11/1502/03/2022 Chewable daily. venetoclax Take 1 tablet (100 mg) [...] documented as of this encounter Progress Notes Graham Moore RN - 10/15/2021 11:47 AM EST ANGIO NURSING DATABASE Name: ANGELICA IVERSON JRNabil Date of : 1960 AGE: 61 y.o. Address: [address] [address] Phone: [phone] (home) Mobile: Telephone Information: Referring Provider: Parviz Modi REASON FOR VISIT: Order Questions Answers Where will study be performed? [facility] Radiology [120] Is the patient on anticoagulant / antiplatelet therapy ? No Reason for exam and clinical history: pre stem cell transplant work up Allergies Allergen Reactions ??? Other [Unclassified Drug] Other (See Comments) Artificial Sweetners-lightheadedness, dizziness Pertinent PMH: Patient Active Problem List Diagnosis Code ??? Acute leukemia C95.00 ??? Clostridium difficile colitis A04.72 ??? 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 AML (acute myeloblastic leukemia) C92.00 ??? Paroxysmal atrial fibrillation I48.0 ??? GERD (gastroesophageal reflux disease) K21.9 ??? BPH (benign prostatic hyperplasia) N40.0 Date/Procedure Meds given/comments 10/04/21 Mediport Placement Fentanyl 225 mcg IV, Versed 4 mg IV, tolerated well ??10/15/2021 Tunneled line Non-HD Lot #[id number] ??Fentanyl 75mcg IV Midazolam 1.5mg IV Tolerated procedure/sedation well ? 1147 to procedure room 6 via stretcher. Onto table supine. All monitors, O2, safety strap in place. Meds per protocol. Laboratory Results: Lab Results Component Value Date INR 1.1 09/27/2021 Lab Results Component Value Date CREATININE 1.31 10/04/2021 Lab Results Component Value Date K 4.8 10/04/2021 Lab Results Component Value Date PLATELET 119 (L) 10/07/2021 documented in this encounter H&P Notes Davion Martini PA - 10/15/2021 10:30 AM EST INTERVENTIONAL RADIOLOGY FOCUSED H&P: Procedure: Planned procedure: Tunneled CVC (Yung Trifusion) placement The patient's history and physical exam have been reviewed and completed. There has been no intervalchange from that of the pre-operative history and physical exam done within the last 30 days. Physical Exam: Cardiovascular: Regular, Normal Pulmonary: Breath sounds clear to auscultation The planned procedure (and sedation plan if appropriate) , its benefits and risks, and alternatives were discussed with the patient. The patient consented to the procedure. PRE-SEDATION ASSESSMENT: Sedation Plan: moderate (conscious sedation) ASA: 2: Patient with mild systemic disease Mallampati: I: soft palate, fauces, tonsillar pillars and uvula can be seen Confirm NPO status: Yes History of anesthetic complications: No Current medications reviewed: Yes Allergies reviewed: Yes Source Note - Davion Martini PA - 10/11/2021 12:42 PM EST Images from the original note were not included. Interventional Radiology Focused Pre-procedure H&P: PCP: LEISA Munguia Referring Provider: Parviz Modi Planned procedure: Tunneled CVC (Yung Trifusion) placement Procedure indication: AML, durable venous access for stem cell transplant IR workflow: Procedure request received through Interventional Radiology eDH order queue. Order Questions Answers Where will study be performed? [facility] Radiology [120] Is the patient on anticoagulant / antiplatelet therapy ? No Reason for exam and clinical history: pre stem cell transplant work up History of present illness: Per chart review, Angelica Iverson Jr. is a 61 y.o. male with AML who presents to Interventional Radiology to undergo placement of tunneled CVC (Yung Trifusion) in setting ofadmission for stem cell transplant. Remainder of patient's medical and surgical history, allergies, medications, and social/family history obtained below as previously outlined in patient's medical record. Of note the patient has a RIJ port (implanted 10/04/21). Likely Left tunneled CVC. IR history: ? Date/Procedure?Meds given/comments 10/04/21 Mediport Placement Fentanyl 225??mcg IV, Versed 4 mg IV, tolerated well Imaging: Assessment: 61 y.o. male with AML presenting to Interventional Radiology for tunneled CVC (yung Trifusion) placement in the setting of stem cell transplant. Plan Planned procedure: Tunneled CVC (Yung Trifusion) placement Labs to be performed day of procedure: No labs Sedation: Moderate (Conscious sedation) Prophylactic antibiotic : None Contrast: No contrast Additional medications for procedure: Lidocaine Position: Supine Consent: Pending Medications to discontinue (and days held): None Cytopathology presence needed: No Case Urgency:: G- Other (non E or F elective cases) Labs: Lab Results Component Value Date HGB 9.0 (L) 10/07/2021 HCT 26.3 (L) 10/07/2021 WBC 4.6 10/07/2021 PLATELET 119 (L) 10/07/2021 INR 1.1 09/27/2021 BUN 24 (H) 10/04/2021 CREATININE 1.31 10/04/2021 ALBUMIN 4.2 10/04/2021 BILIDIR 0.1 08/08/2021 BILITOT <0.2 (L) 10/04/2021 AST 53 (H) 10/04/2021 ALT 56 (H) 10/04/2021 ALKPHOS 114 10/04/2021 Allergies: Other [unclassified drug] Medications: Current Outpatient Medications on File Prior to Encounter Medication Sig Dispense Refill ??? enoxaparin (Lovenox) 100 mg/mL Syringe Inject 100 mg subcutaneously daily. ??? lidocaine-prilocaine (EMLA) Cream Apply to mediport approximately 30 minutes prior to access. 30g 0 ??? phenytoin (Dilantin) 50 mg Tablet, Chewable Take 8 tablets(400 mg) at 9:00 AM and 6 tablets (300mg) at 3:00 PM on October 15, 2021 14 tablet 0 ??? venetoclax (Venclexta) 100 mg tablet [...] Misc Dispense 2 boxes (10/box) of Sensura [place] Soft Convex One-piece Pouch #[id number] month. 20 each 11 ??? Ostomy Supplies Misc Dispense 2 boxes (20/box) of Brava Elastic Barrier strips #[id number] per month. 40 each 11 ??? Ostomy [...] IR Mediport Placement 10/04/2021 Kelli Diaz PA [facility] INTERVENTIONL RAD ? ? PRO DIAGNOSTIC BONE MARROW BIOPSIES & ASPIRATIONS Right 09/12/2021 ([facility] MSURG) BONE MARROW BIOPSY AND ASPIRATION; DIAGNOSTIC performed by Parviz Modi MD [facility] OSC ? ? PRO DIAGNOSTIC BONE MARROW BIOPSIES & ASPIRATIONS N/A 10/07/2021 ([facility] MSURG) BONE MARROW BIOPSY AND ASPIRATION; DIAGNOSTIC performed by Parviz Modi MD [facility] OSC ??? PRO EXPLORATORY OF ABDOMEN Midline 05/26/2021 @EXPLORATORY LAPAROTOMY, WITH/WITHOUT BIOPSY(S) (WRVU 12.54) performed by Mark Hernandes MD [facility] MAIN OR ??? PRO ILEOSTOMY/JEJUNOSTOMY, NONTUBE N/A 05/28/2021 @ILEOSTOMY OR JEJUNOSTOMY, NON TUBE (WRVU 17.59) performed by Colby Walter MD at [facility] MAIN OR ??? PRO REOPEN RECENT ABD EXPLORATORY N/A 05/28/2021 @EXPLORATORY LAPAROTOMY, REOPENING OF RECENT (WRVU 17.63) performed by Colby Walter MD at [facility] MAIN OR ??? TONSILLECTOMY AND ADENOIDECTOMY ??? XR FLUORO GUIDED LUMBAR PUNCTURE N/A 07/12/2021 XR Fluoro Guided Lumbar Puncture 07/12/2021 Frances Green MD [facility] RAD XRAY ??? XR FLUORO GUIDED LUMBAR PUNCTURE FOR IT CHEMOTHERAPY N/A 07/16/2021 XR Fluoro Guided Lumbar Puncture For IT Chemotherapy 07/16/2021 Nas Patino MD [facility] RAD XRAY ??? XR FLUORO GUIDED LUMBAR PUNCTURE FOR IT CHEMOTHERAPY N/A 07/19/2021 XR Fluoro Guided Lumbar Puncture For IT Chemotherapy 07/19/2021 Shae Alford MD [facility] RAD XRAY ??? XR FLUORO GUIDED LUMBAR PUNCTURE FOR IT CHEMOTHERAPY N/A 07/25/2021 XR Fluoro Guided Lumbar Puncture For IT Chemotherapy 07/25/2021 Nas Patino MD [facility] RAD XRAY ??? XR FLUORO GUIDED LUMBAR PUNCTURE FOR IT CHEMOTHERAPY N/A 07/29/2021 XR Fluoro Guided Lumbar Puncture For IT Chemotherapy 07/29/2021 [facility] RAD XRAY ??? XR FLUORO GUIDED LUMBAR PUNCTURE FOR IT CHEMOTHERAPY N/A 08/05/2021 XR Fluoro Guided Lumbar Puncture For IT Chemotherapy 08/05/2021 Nas Patino MD [facility] RAD XRAY ??? XR FLUORO GUIDED LUMBAR PUNCTURE FOR IT CHEMOTHERAPY N/A 08/01/2021 XR Fluoro Guided Lumbar Puncture For IT Chemotherapy 08/01/2021 Yolette Solano, [employer] [facility] RAD XRAY ??? XR FLUORO GUIDED LUMBAR PUNCTURE FOR IT CHEMOTHERAPY N/A 07/22/2021 XR Fluoro Guided Lumbar Puncture For IT Chemotherapy 07/22/2021 [facility] RAD XRAY ??? XR FLUORO GUIDED LUMBAR PUNCTURE FOR IT CHEMOTHERAPY N/A 08/12/2021 XR Fluoro Guided Lumbar Puncture For IT Chemotherapy 08/12/2021 Jona Lowry MD [facility] RAD XRAY ??? XR FLUORO GUIDED LUMBAR PUNCTURE FOR IT CHEMOTHERAPY N/A 08/26/2021 XR Fluoro Guided Lumbar Puncture For IT Chemotherapy 08/26/2021 Yolette Solano, [facility] RAD XRAY ??? XR FLUORO GUIDED LUMBAR PUNCTURE FOR IT CHEMOTHERAPY N/A 09/05/2021 XR Fluoro Guided Lumbar Puncture For IT Chemotherapy 09/05/2021 Yolette Solano, [facility] RAD XRAY ??? XR FLUORO GUIDED LUMBAR PUNCTURE FOR IT CHEMOTHERAPY N/A 09/09/2021 XR Fluoro Guided Lumbar Puncture For IT Chemotherapy 09/09/2021 Yolette Solano, [facility] RAD XRAY ??? XR FLUORO GUIDED LUMBAR PUNCTURE FOR IT CHEMOTHERAPY N/A 09/27/2021 XR Fluoro Guided Lumbar Puncture For IT Chemotherapy 09/27/2021 Yolette Solano, [facility] RAD XRAY Social history and habits: [...] in interventional radiology the day of procedure) 10/11/2021 LEISA Baez Davion Martini PA - 10/11/2021 12:42 PM EST Images from the original note were not included. Interventional Radiology Focused Pre-procedure H&P: PCP: LEISA Munguia Referring Provider: Parviz Mdoi Planned procedure: Tunneled CVC (Yung Trifusion) placement Procedure indication: AML, durable venous access for stem cell transplant IR workflow: Procedure request received through Interventional Radiology eDH order queue. Order Questions Answers Where will study be performed? [facility] Radiology [120] Is the patient on anticoagulant / antiplatelet therapy ? No Reason for exam and clinical history: pre stem cell transplant work up History of present illness: Per chart review, Angelica Iverson Jr. is a 61 y.o. male with AML who presents to Interventional Radiology to undergo placement of tunneled CVC (Yung Trifusion) in setting ofadmission for stem cell transplant. Remainder of patient's medical and surgical history, allergies, medications, and social/family history obtained below as previously outlined in patient's medical record. Of note the patient has a RIJ port (implanted 10/04/21). Likely Left tunneled CVC. IR history: ? Date/Procedure?Meds given/comments 10/04/21 Mediport Placement Fentanyl 225??mcg IV, Versed 4 mg IV, tolerated well Imaging: Assessment: 61 y.o. male with AML presenting to Interventional Radiology for tunneled CVC (yung Trifusion) placement in the setting of stem cell transplant. Plan Planned procedure: Tunneled CVC (Yung Trifusion) placement Labs to be performed day of procedure: No labs Sedation: Moderate (Conscious sedation) Prophylactic antibiotic : None Contrast: No contrast Additional medications for procedure: Lidocaine Position: Supine Consent: Pending Medications to discontinue (and days held): None Cytopathology presence needed: No Case Urgency:: G- Other (non E or F elective cases) Labs: Lab Results Component Value Date HGB 9.0 (L) 10/07/2021 HCT 26.3 (L) 10/07/2021 WBC 4.6 10/07/2021 PLATELET 119 (L) 10/07/2021 INR 1.1 09/27/2021 BUN 24 (H) 10/04/2021 CREATININE 1.31 10/04/2021 ALBUMIN 4.2 10/04/2021 BILIDIR 0.1 08/08/2021 BILITOT <0.2 (L) 10/04/2021 AST 53 (H) 10/04/2021 ALT 56 (H) 10/04/2021 ALKPHOS 114 10/04/2021 Allergies: Other [unclassified drug] Medications: Current Outpatient Medications on File Prior to Encounter Medication Sig Dispense Refill ??? enoxaparin (Lovenox) 100 mg/mL Syringe Inject 100 mg subcutaneously daily. ??? lidocaine-prilocaine (EMLA) Cream Apply to mediport approximately 30 minutes prior to access. 30g 0 ??? phenytoin (Dilantin) 50 mg Tablet, Chewable Take 8 tablets(400 mg) at 9:00 AM and 6 tablets (300mg) at 3:00 PM on October 15, 2021 14 tablet 0 ??? venetoclax (Venclexta) 100 mg tablet [...] (Ostomy Belt Medium) Misc Dispense 1 Sensura [place] Belt #4237 per month. 1 each 11 ??? Ostomy Supplies Powder Dispense 1 bottle of Adapt stoma powder #7906 every other month. 28.3 g 5 ??? Ostomy Supplies Misc Dispense 2 boxes (10/box) of Sensura [place] Soft Convex One-piece Pouch #[id number] month. 20 each 11 ??? Ostomy Supplies Misc Dispense 2 boxes (20/box) of Brava Elastic Barrier strips #[id number] per month. 40 each 11 ??? Ostomy [...] IR Mediport Placement 10/04/2021 Kelli Diaz PA [facility] INTERVENTIONL RAD ? ? PRO DIAGNOSTIC BONE MARROW BIOPSIES & ASPIRATIONS Right 09/12/2021 ([facility]) BONE MARROW BIOPSY AND ASPIRATION; DIAGNOSTIC performed by Parviz Modi MD [facility] ? ? PRO DIAGNOSTIC BONE MARROW BIOPSIES & ASPIRATIONS N/A 10/07/2021 ([facility] MSURG) BONE MARROW BIOPSY AND ASPIRATION; DIAGNOSTIC performed by Parviz Modi MD [facility]SC ??? PRO EXPLORATORY OF ABDOMEN Midline 05/26/2021 @EXPLORATORY LAPAROTOMY, WITH/WITHOUT BIOPSY(S) (WRVU 12.54) performed by Mark Hernandes MD [facility] MAIN OR ??? PRO ILEOSTOMY/JEJUNOSTOMY, NONTUBE N/A 05/28/2021 @ILEOSTOMY OR JEJUNOSTOMY, NON TUBE (WRVU 17.59) performed by Colby Walter MD at [facility] MAIN OR ??? PRO REOPEN RECENT ABD EXPLORATORY N/A 05/28/2021 @EXPLORATORY LAPAROTOMY, REOPENING OF RECENT (WRVU 17.63) performed by Colby Walter MD at [facility] MAIN OR ??? TONSILLECTOMY AND ADENOIDECTOMY ??? XR FLUORO GUIDED LUMBAR PUNCTURE N/A 07/12/2021 XR Fluoro Guided Lumbar Puncture 07/12/2021 Frances Green MD [facility] RAD XRAY ??? XR FLUORO GUIDED LUMBAR PUNCTURE FOR IT CHEMOTHERAPY N/A 07/16/2021 XR Fluoro Guided Lumbar Puncture For IT Chemotherapy 07/16/2021 Nas Patino MD [facility] RAD XRAY ??? XR FLUORO GUIDED LUMBAR PUNCTURE FOR IT CHEMOTHERAPY N/A 07/19/2021 XR Fluoro Guided Lumbar Puncture For IT Chemotherapy 07/19/2021 Shae Alford MD [facility] RAD XRAY ??? XR FLUORO GUIDED LUMBAR PUNCTURE FOR IT CHEMOTHERAPY N/A 07/25/2021 XR Fluoro Guided Lumbar Puncture For IT Chemotherapy 07/25/2021 Nas Patino MD [facility] RAD XRAY ??? XR FLUORO GUIDED LUMBAR PUNCTURE FOR IT CHEMOTHERAPY N/A 07/29/2021 XR Fluoro Guided Lumbar Puncture For IT Chemotherapy 07/29/2021 [facility] RAD XRAY ??? XR FLUORO GUIDED LUMBAR PUNCTURE FOR IT CHEMOTHERAPY N/A 08/05/2021 XR Fluoro Guided Lumbar Puncture For IT Chemotherapy 08/05/2021 Nas Patino MD [facility] RAD XRAY ??? XR FLUORO GUIDED LUMBAR PUNCTURE FOR IT CHEMOTHERAPY N/A 08/01/2021 XR Fluoro Guided Lumbar Puncture For IT Chemotherapy 08/01/2021 Yolette Solano, [facility] RAD XRAY ??? XR FLUORO GUIDED LUMBAR PUNCTURE FOR IT CHEMOTHERAPY N/A 07/22/2021 XR Fluoro Guided Lumbar Puncture For IT Chemotherapy 07/22/2021 [facility] RAD XRAY ??? XR FLUORO GUIDED LUMBAR PUNCTURE FOR IT CHEMOTHERAPY N/A 08/12/2021 XR Fluoro Guided Lumbar Puncture For IT Chemotherapy 08/12/2021 Jona Lowry MD [facility] RAD XRAY ??? XR FLUORO GUIDED LUMBAR PUNCTURE FOR IT CHEMOTHERAPY N/A 08/26/2021 XR Fluoro Guided Lumbar Puncture For IT Chemotherapy 08/26/2021 Yolette Solano, [facility] RAD XRAY ??? XR FLUORO GUIDED LUMBAR PUNCTURE FOR IT CHEMOTHERAPY N/A 09/05/2021 XR Fluoro Guided Lumbar Puncture For IT Chemotherapy 09/05/2021 Yolette Solano, [facility] RAD XRAY ??? XR FLUORO GUIDED LUMBAR PUNCTURE FOR IT CHEMOTHERAPY N/A 09/09/2021 XR Fluoro Guided Lumbar Puncture For IT Chemotherapy 09/09/2021 Yolette Solano, [facility] RAD XRAY ??? XR FLUORO GUIDED LUMBAR PUNCTURE FOR IT CHEMOTHERAPY N/A 09/27/2021 XR Fluoro Guided Lumbar Puncture For IT Chemotherapy 09/27/2021 Yolette Solano, [facility] RAD XRAY Social history and habits: [...] in interventional radiology the day of procedure) 10/11/2021 LEISA Baez documented in this encounter Plan of Treatment Upcoming Encounters Date Type Specialty Care Team Description 02/18/2022 Infusion Hematology and Oncology 02/21/2022 Infusion Hematology and Oncology 02/24/2022 Appointment Hematology and Oncology 02/24/2022 Office Visit Hematology and Oncology Parviz Modi MD [facility] DR HEMATOLOGY/[place] [address] Miroslava Pelayo APRN [facility] [address] HEMATOLOGY/[place] [address] 02/24/2022 Office Visit Wound Care 02/24/2022 Appointment Hematology and Oncology 02/26/2022 Office Visit Neurology Leni Bustamante MD [facility] DR NEUROLOGY DEPT. [place], [place] [address] (Wo rk) documented as of this encounter Procedures Procedure Name Priority Date/Time Associated Diagnosis Comme nts LAB SCAN 10/22/2021 12:00 AM EST IR TUNNELED CENTRAL Routine 10/15/2021 1:02 PM Stem cell trans plant Results for this VENOUS ACCESS EST candidate procedure are in NON-DIALYSIS the results section. documented in this encounter Results SCAN DOC: LAB (10/22/2021 12:00 AM EST) Narrative This result has an attachment that is no t available. Unknown MEDIA MGR SCAN EXT ORDR/RSLT IR Tunneled Central Venous Access Non-Dialysis (10/15/2021 1:02 PM EST) Anatomical Region Laterality Modality Chest, Vascular X-Ray Angiography Specimen (Source) Anatomical Location Collection Method / Collectio n Time Received Time / Laterality Volume Narrative 10/16/2021 10:27 AM EST Interventional Radiology Procedure Note Procedure: Tunneled single-lumen cathete r implant Indication: Acute myeloid leukemia, dura ble chcf central venous access for frequent infusions Procedure Summary: 1.) Venous access with ultrasound guidan ce 2.) Tunneled central venous catheter lalo cement under fluoroscopic guidance Pre-procedure: Informed consent for the procedure including risks, benefits and alternatives was obtained a nd time-out was performed prior to the procedure. The site was prepared and draped using all elements of maximal sterile barrier technique. ?? Sedation: Due to the painful nature of t he procedure, patient received split doses of intravenous midazolam and fentanyl from the interventional radiology nurse while pulse, pressure, a nd oxygen saturation were continuously monitored. Technique: The patient's neck was sonogr aphically evaluated for potential access sites, and the left internal jugu lar vein was determined to be patent. Local anesthetic was administere d. The vein was accessed via real-time ultrasound and micropuncture s et with 21 gauge needle and a permanent image was stored. A 0.018 wir e was advanced into superior vena cava. The remainder of the procedure was perfo rmed with fluoroscopic guidance. A 4 Fr introducer sheath was placed and th e wire exchanged for a 0.035 J wire. The wire was advanced into the inf erior vena cava. Local anesthetic was then infiltrated subcutaneously in a caudal-lateral direction from the venotomy. A 1 cm incision was made on th e anterior chest. A tunneler was used to advance the catheter subcutaneou sly to the venous access site. A 10 Fr peel-away sheath advanced over the wire. The wire and inner obturator were removed and the catheter advanced into the superior vena cava. Catheter position was confirmed an d a static image stored. All ports flushed and aspirated well. A sterile dr essing applied. Medications: Lidocaine 1% 10 mL subcut; lidocaine 1% with epinephrine 1:100,000 <20 mL subcut; midazolam 1.5 m g IV; fentanyl 75 mcg IV; cefazolin 2 g IV Contrast: None Fluoroscopy: 15.36 mGy Estimated blood loss: <5 ml Complications: ??No immediate Impression: Patent left internal jugular vessel by sonographic evaluation. Insertion of left internal jugular, Hick man Trifusion 12 Fr three-lumen cuffed ??catheter. The catheter may be u sed immediately. Service provider: Jannie Gillespie Attending of Record: Deng Talbot MD 10/15/2021 Parviz Modi MD IMG IR ORDERABLES documented in this encounter Visit Diagnoses Diagnosis Stem cell transplant candidate documented in this encounter Administered Medications Inactive Administered Medications - up to 3 most recent administrations Medication Order MAR Action Action Date Dose Rate Site acetaminophen (Tylenol) (32.02 Given 11/02/2021 9:34 AM EDT 975 mg mg/mL) oral liquid 975 mg 975 mg, Oral, EVERY 8 HOURS PRN, Starting on Kassy 10/31/21 at 0355, Until 11/18/21 at 1628, Pain, Maximum dose of acetaminophen is 4000 mg from all sources in 24 hours. When ordered for pain, acetaminophen should be given even when other ordered pain medications are indicated. , Routine Given 10/31/2021 4:06 AM EDT 975 mg acyclovir (Zovirax) 472.5 mg in New Bag 11/13/2021 5:10 AM EDT 472.5 mg 259.5 mL/hr sodium chloride 0.9% 259.45 mL infusion 472.5 mg (250 mg/m2/dose ? 1.89 m2 [place] BSA), Intravenous, EVERY 12 HOURS, First dose on Kassy 10/31/21 at 1415, Until Discontinued, Administer over 60 Minutes, Indication for (Active or Suspected): Prophylaxis New Bag 11/12/2021 4:05 PM EDT 472.5 mg 259.5 mL/hr New Bag 11/12/2021 5:27 AM EDT 472.5 mg 259.5 mL/hr calcium carbonate (Tums) chewable tablet 500 Given 1:49 PM EDT 500 mg mg 500 mg, Oral, 3 TIMES DAILY PRN, Starting on 10/26/21 at 1252, Until 10/27/21 at 1438, Heartburn, Routine Given 10/27/2021 10:58 AM EDT 500 mg Given 10/26/2021 10:12 PM EST 500 mg ceFAZolin (Ancef) 2 g in dextrose 5% New Bag 10/15/2021 12:10 PM EST 2 g 200 mL/hr 100 mL infusion 2 g, Intravenous, ONCE, 1 dose, On Thu10/15/21 at 1215, Administer over 30 Minutes, Redose every 3 hours if CrCl is greater than 20. Redose every 8 hours if CrCl is less than 20., Angio/IR (Day of Procedure), Indication for (Active or Suspected): Prophylaxis ceFEPime (Maxipime) 2g vial attach to New [...] 1:50 PM EDT 2 g 200 mL/hr DAPTOmycin (Cubicin) 845 mg in New Bag 11/17/2021 3:56 AM EDT 845 mg 133.8 mL/hr sodium chloride 0.9% 66.9 mL 845 mg (rounded from 846 mg = 10 mg/kg/dose ? 84.6 kg Adjusted weight), Intravenous, EVERY 24 HOURS, 15 doses, First dose (after last modification) on 11/03/21 at 0400, Last dose on 11/17/21 at 0400, Administer over 30 Minutes, Indication for (Active or Suspected): Bacteremia/Sepsis, Restricted Antibiotic: Please indicate the most appropriate choice: Off hour exemption for 2 doses (11PM - 7AM) New Bag 11/16/2021 3:30 AM EDT 845 mg 133.8 mL/hr New Bag 11/15/2021 3:49 AM EDT 845 mg 133.8 mL/hr enoxaparin (Lovenox) (40 mg/0.4 mL) Given 11/01/2021 2:32 PM EDT 40 mg subcutaneous injection 40 mg 40 mg, Subcutaneous, EVERY 24 HOURS SCHEDULED (Daily), First dose (after last reorder) on Thu11/01/21 at 1100, Until Discontinued, Maintain platelet count greater than or equal to 10x10^3 / mcl., Routine fentaNYL (pf) (50 mcg/mL) multi-dose Given 10/15/2021 12:[address] 25 mcg injection 25-50 mcg 25-50 mcg, Intravenous, EVERY 3 MIN PRN, Starting on Thu10/15/21 at 1030, Until Thu10/16/21 at 0234, Pain, per unit protocol, - Start dose [...] order., Angio/IR (Day of Procedure), Routine Given 10/15/2021 12:12 PM EST 50 mcg flecainide (Tambocor) tablet 50 mg Given 11/18/2021 8:10 AM EDT 50 mg 50 mg, Oral, 2 TIMES DAILY, First dose on Thu10/15/21 at 2100, Until Discontinued, Routine Given 11/17/2021 8:54 PM EDT 50 mg Given 11/17/2021 8:51 AM EDT 50 mg fluconazole (Diflucan) tablet 400 mg Given 11/18/2021 8:09 AM EDT 400 mg 400 mg, Oral, DAILY, First dose on Thu11/13/21 at 0900, Until Discontinued, DO NOT SPLIT, CRUSH OR OPEN, Routine Given 11/17/2021 8:51 AM EDT 400 mg Given 11/16/2021 8:11 AM EDT 400 mg gabapentin (Neurontin) capsule 200 mg Given 11/18/2021 8:09 AM EDT 200 mg 200 mg, Oral, 3 TIMES DAILY, First dose (after last modification) on Thu10/23/21 at 1500, Until Discontinued, Routine Given 11/17/2021 8:50 PM EDT 200 mg Given 11/17/2021 3:49 PM EDT 200 mg lactated ringers infusion New Bag 11/18/2021 12:20 AM EDT 150 mL/hr 150 mL/hr 150 mL/hr, Intravenous, CONTINUOUS, Starting on Thu11/17/21 at 1800, Until Thu11/18/21 at 0559 New Bag 11/17/2021 5:56 PM EDT 150 mL/hr 150 mL/hr lidocaine (Xylocaine) 1% (10 mg/mL) injection Given 12:16 PM EST 10 mg 10 mg 10 mg, Subcutaneous, ONCE, 1 dose, On Thu10/15/21 at 1100, For use in Interventional Radiology (IR) only for procedure with direct provider supervision and verbal order., Angio/IR (Day of Procedure), Routine lidocaine (Xylocaine) 2 % viscous solution 15 Given 6:10 PM EDT 15 mLs mL 15 mL, Mucous Membrane, EVERY 4 HOURS, First dose (after last modification) on Thu11/01/21 at 1045, Until Discontinued, Swallow prior to meals for mucositis pain, Routine Given 11/01/2021 2:33 PM EDT 15 mLs Given 11/01/2021 11:54 AM EDT 15 mLs lidocaine-EPINEPHrine (2% - 1:100,000) Given 10/15/2021 12:31 PM EST 10 mLs injection vial 10 mL 10 mL, Intradermal, ONCE, 1 dose, On Thu10/15/21 at 1100, Warning Vesicant/Irritant Medication , Angio/IR (Day of Procedure), Routine loperamide (Imodium A-D) capsule 2 mg Given 10/23/2021 4:18 PM EST 2 mg 2 mg, Oral, 4 TIMES DAILY PRN, Starting on Thu10/20/21 at 0905, Until Thu10/28/21 at 1427, Diarrhea, Do not exceed 16 mg/day., Routine Given 10/21/2021 3:20 PM EST 2 mg Given 10/21/2021 12:18 AM EST 2 mg MEROpenem (Merrem) 1 g vial attach to [...] mL/hr metHOTREXate (pf) (Rheumatrex) (25 mg/mL) Given 10/25/2021 10:28 AM EST 10 mg injection 10 mg 10 mg (rounded from 10.2 mg = 5 mg/m2/do se ? 2.04 m2 Treatment plan adjusted BSA), Intravenous, ONCE, 1 dose, On Thu10/25/21 at 1000, Administer over 5 Minutes, Administer on day (+3). HOLD Methotrexate for serum creatinine greater than 3 mg/dL. First methotrexate dose to begin at least 24 hours after stem cell infusion; if cells administered over 2 days give methotrexate on day ( +4) . Doses for chemotherapy/supportive care are based on CALGB 842204 and [facility]'s SOP (Chemotherapy Dosing Based on Adjusted or [place] Body Weight which uses the [place] method for ideal body weight): 1) Methotrexate [...] than their IBW, use actual body weight. metoprolol succinate XL (Toprol-XL) tablet 50 Given [...] Given 10/31/2021 9:00 AM EDT 12.5 mg midazolam (pf) (Versed) (1 mg/mL) multi-dose Given 08/2021 12:30 PM EST 0.5 mg injection 0.5-1 mg 0.5-1 mg, Intravenous, EVERY 3 MIN PRN, Starting on Thu10/15/21 at 1030, Until Thu10/16/21 at 0234, Sleep, - Start dose; 1 mg (Reduce [...] order., Angio/IR (Day of Procedure), Routine Given 10/15/2021 12:12 PM EST 1 mg morphine (2 mg/mL) injection 2 mg Given 11/05/2021 8:22 PM EDT 2 mg 2 mg, Intravenous, EVERY 3 HOURS PRN, Starting on Thu11/01/21 at 0904, Until Thu11/06/21 at 1029, Pain, mild pain (1-3), May give an additional 2 mg in 30 minutes once if pain not relieved., Routine Given 11/04/2021 8:08 PM EDT 2 mg Given 11/04/2021 3:28 PM EDT 2 mg pantoprazole EC (Protonix) tablet 40 mg Given 11/18/2021 8:10 AM EDT 40 mg 40 mg, Oral, DAILY, First dose on Thu11/13/21 at 0900, Until Discontinued, DO NOT CRUSH OR OPEN, Routine Given 11/17/2021 8:51 AM EDT 40 mg Given 11/16/2021 8:11 AM EDT 40 mg sodium chloride 0.9 % (flush) (BD PosiFlush Given 11/18/2021 8:2 2 AM EDT 5 mLs Normal Saline 0.9) flush 5 mL 5 mL, Intravenous, 2 TIMES DAILY, First dose on Thu10/15/21 at 2100, Until Discontinued, Routine Given 11/17/2021 8:56 PM EDT 5 mLs Given 11/17/2021 9:03 AM EDT 5 mLs supersaturated calcium phosphate (Caphosol) Given 11/18/2021 8:09 [...] 8:28 PM EDT 0.5 mg 16.83 mL/hr New Bag 11/13/2021 9:56 AM EDT 0.5 mg 16.83 mL/hr ursodiol (Actigall) (60 mg/mL) oral liquid Given [...] PM EDT 600 mg ursodioL (Actigall) capsule 600 mg Given [...] 5:09 PM EDT 600 mg vancomycin (Vancocin) capsule 125 mg Given 11/18/2021 8:09 AM EDT 125 mg 125 mg, Oral, 2 TIMES DAILY, First dose on Thu10/15/21 at 2100, Until Discontinued, Routine Given 11/17/2021 8:55 PM EDT 125 mg Given 11/17/2021 8:51 AM EDT 125 mg documented in this encounter Additional Health Concerns Infection Onset Date Last Indicated Resolved Time History of C. difficileComment: C. diffiicile 08/20/2021 testing positive 05/25/21. documented as of this encounter Care Teams Chemical Research Engineer Relationship Specialty Start Date End Date Beatriz Maurice PA PCP - General Family Medicine 05/06/21 [address] [place] [address] documented as of this encounter
--- OUTSIDE RECORDS SUMMARY | 2022-02-14 11:14 | XMS_ITS | Encounter Summary ---
:1960 Author Organization [facility] [place] [address] Care Team Providers Name Role Phone Beatriz Maurice Primary Care Provider Encounter Details Date Type Department Care Team Description 10/04/2021 Hospital Encounter Pulmonology at [facility] Stem cell transplant [facility] [place] [address] Social History Tobacco Use Types Packs/Day [...] boxes 20 each 2 (10/box) of [employer] [place] Soft Convex One-piece Pouch #[id number] per month. Ostomy Supplies [facility] Dispense 2 boxes 40 each 11 2 (20/box) of Brava Elastic Barrier strips #[id number] per month. Ostomy Supplies [facility] Dispense 1 box 50 each 11 08/20/2021 [...] hr Colostomy Belt (Ostomy Dispense 1 [employer] [place] 1 each 11 0 08/20/2021 12/13/2021 Belt Medium) [facility] Belt #[id number] per month. loperamide (Imodium Take 1 capsule [...] Visit Hematology and Oncology Parviz Modi MD [facility] DR HEMATOLOGY/[place] [address] Miroslava Pelayo APRN [facility] DR HEMATOLOGY/[place] [address] 02/24/2022 Office Visit Wound Care 02/24/2022 Appointment Hematology and Oncology 02/26/2022 Office Visit Neurology Leni Bustamante MD [facility] DR NEUROLOGY DEPT. [place], [place] [address] (Wo rk) documented as of this encounter Procedures Procedure Name Priority Date/Time Associated Diagnosis Comme nts PULMONARY FUNCTION Routine 10/04/2021 9:37 AM Stem cell transp lant Results for this TEST EST candidate procedure are i n the results section. documented in this encounter Results Pulmonary Function Testing (10/04/2021 9:37 AM EST) P athologist Signature FVC Actual 4.83 L COMPAS PFT Pre-BD FVC Pre-BD % of 105 % COMPAS PFT Predicted FVC Predicted 4.59 L COMPAS PFT FVC Pre-BD 0.36 COMPAS PFT Z-Score FVC Lower 3.49 L COMPAS PFT Limits of Normal FEV1 Actual 4.00 L COMPAS PFT Pre-BD FEV1 Pre-BD % 113 % COMPAS PFT of Predicted FEV1 Predicted 3.54 L COMPAS PFT FEV1 Pre-BD 0.90 COMPAS PFT Z-Score FEV1 Lower 2.66 L COMPAS PFT Limits of Normal FEV1 / FVC 83 % COMPAS PFT Actual Pre-BD FEV1/FVC Pre-BD 0.91 COMPAS PFT Z-Score FEV1 / FVC LLN 65 % COMPAS PFT [id number] Actual 3.76 L/s COMPAS PFT Pre-BD [id number] Pre-BD 129 % COMPAS PFT % of Predicted [id number] 2.92 L/s COMPAS PFT Predicted [id number] Pre-BD 0.73 COMPAS PFT Z-Score DLCO Hb Actual 18.75 mL/min/mmHg COMPAS PFT Pre-BD DLCO Hb Pre-BD 68 % COMPAS PFT % of Predicted DLCO Hb Pre-BD -2.12 COMPAS PFT Z-Score DLCO Hb 27.41 mL/min/mmHg COMPAS PFT Predicted DLCO UNC ACT 16.86 mL/min/mmHg COMPAS PFT PRE-BD DLCO UNC PRE-BD 62 % COMPAS PFT % of PRED DLCO UNC PRE-BD -2.66 % COMPAS PFT Z-SCORE DLCO UNC 27.41 mL/min/mmHg COMPAS PFT Predicted DLCO/VA Actual 2.92 mL/min/mmHg COMPAS PFT Pre-BD /L DLCO/VA Pre-BD 69 % COMPAS PFT % of Predicted DLCO/VA Pre-BD -2.13 COMPAS PFT Z-Score DLCO/VA 4.24 mL/min/mmHg COMPAS PFT Predicted /L Six minute walk 396 m COMPAS PFT in Meter Six minute walk 1,299 ft COMPAS PFT in Feet Specimen (Source) Anatomical Location Collection Method / Collectio n Time Received Time / Laterality Volume Narrative COMPAS PFT - 10/04/2021 9:37 AM EST FINDINGS: FEV1, FVC, and FEV1/FVC are within normal limits. Diffusion capacity is mildly reduced even when adjusted for hemoglobi n of 9.4 g/dL. Six minute walk distance of 396 meters (73% of predicted) achieved, wtih SpO ma intained at 100% and HR increased to 139 with ambulation. IMPRESSION: Normal spirometr y. Mild reduction in diffusing capacity (DLCO > 60% and < lower limit of normal). There is no d esaturation with ambulation however walk distance is reduced. Isolated reduced DLCO suggests the possibility of disease of the pulmonary vasculature, early emphysema, early inte rstitial disease, anemia, or carboxyhemoglobinemia/heavy tobacco smok ing. Procedure Note Rosemarie Poe MD - 10/05/2021 FINDINGS: FEV1, FVC, and FEV1/FVC are wi thin normal limits. Diffusion capacity is mildly reduced even when adjusted for hemoglobi n of 9.4 g/dL. Six minute walk distance of 396 meters (73% of predicted) achieved, wtih SpO ma intained at 100% and HR increased to 139 with ambulation. IMPRESSION: Normal spirometr y. Mild reduction in diffusing capacity (DLCO > 60% and < lower limit of normal). There is no d esaturation with ambulation however walk distance is reduced. Isolated reduced DLCO suggests the possibility of disease of the pulmonary vasculature, early emphysema, early inte rstitial disease, anemia, or carboxyhemoglobinemia/heavy tobacco smok ing. Parviz Modi MD PFT ORDERABLES Performing Organization Address City/State/ZIP Code Phon e Number COMPAS PFT documented in this encounter Visit Diagnoses Diagnosis Stem cell transplant candidate documented in this encounter Additional Health Concerns Infection Onset Date Last Indicated Resolved Time History of C. difficileComment: C. diffiicile 08/20/2021 testing positive 05/25/21. documented as of this encounter Care Teams Fire Department Marine Engineer Relationship Specialty Start Date End Date Beatriz Maurice PA PCP - General Family Medicine 05/06/21 [address] [place] [address] documented as of this encounter
--- OUTSIDE RECORDS SUMMARY | 2022-02-14 11:14 | XMS_ITS | Encounter Summary ---
:1960 Author Organization [facility] Address [address] [place] [address] Care Team Providers Name Role Phone Beatriz Maurice Primary Care Provider Encounter Details Date Type Department Care Team Description 10/14/2021 Orders Only Hematology and Oncology Parviz Modi MD at [facility] Catie narvaez HEMATOLOGY/[place] [address] [place] [address] [phone] (Wo rk) Social History Tobacco Use Types [...] Visit Hematology and Oncology Parviz Modi MD [facility] DR HEMATOLOGY/[place] [address] Miroslava Pelayo APRN [facility] HEMATOLOGY/[place] [address] 02/24/2022 Office Visit Wound Care 02/24/2022 Appointment Hematology and Oncology 02/26/2022 Office Visit Neurology Leni Bustamante MD [facility] NEUROLOGY DEPT. [place], [place] [address] (Wo rk) documented as of this encounter Visit Diagnoses Not on filedocumented in this encounter Additional Health Concerns Infection Onset Date Last Indicated Resolved Time History of C. difficileComment: C. 08/20/2021 08/20/2021 diffiicile testing positive 05/25/21. Rule Out C. difficile 10/19/2021 10/19/2021 10/19/2021 4:07 PM EST documented as of this encounter Care Teams Scourer Relationship Specialty Start Date End Date Beatriz Maurice PA PCP - General Family Medicine 05/06/21 [address] [place] [address] documented as of this encounter
--- OUTSIDE RECORDS SUMMARY | 2022-02-14 11:14 | XMS_ITS | Encounter Summary ---
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 is a 61 y.o. 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 Patient reports diplopia started 06/2021 but has mostly resolved in primarygaze since then. 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 exhibited normal 20/20 visual function, full color vision, with no evidence of a relative afferent pupillary defect that would suggest an underlying optic nerve dysfunction. The intraocular pressures were normal in each eye. Static visual jacobs were full bilaterally. Sensorimotor examination revealed full extraocular movements in each eye. Herber Iverson Jr. was orthophoric in most directions of gaze. In far right gaze he has a right hypertropia of 2 PD, intermittent esotropia of 3 PD. Dilated eye examination revealed normal anterior segment structures. The optic nerves are healthy and pink. The maculae and peripheral retina was normal in each eye. There was an isolated right Inferior hemorrhage.The OCT revealed normal RNFL of both optic nerves of 103 in the right eye and 102 in theleft eye. 1) Acute Myeloblastic Leukemia - Request for second read of MRI head on 07/12/21 revealed no intracranial mass, abnormal enhancement, or evidence of recent infarct - Since onset in 06/2021, it has gotten 80% better and only notices it in far right gaze or right head tilt. 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 He did have CSF testing last month which revealed high protein and both lymphocytes and histiocytes. - Given clinical improvement of diplopia, no indication for prisms. We will reassess in 2-3 months. He is currently undergoing systemic chemotherapy. 2) Retinal Hemorrhage -There was an isolated right Inferior hemorrhage. Likely secondary to low platelets. - Observation recommended at this time. 3) Nuclear sclerotic cataracts, bilaterally - Not visually significant at this time - Continued observation - Discussed repeat assessment if he notes worsening glare symptoms or reduced vision RTC 2-3 months for F diplopia clinic I, Paola Lowe, have performed the documentation for this encounter in the presence of and acting as a scribe for Kai Palmer MD. I performed the services which were documented by the scribe, and I agree with the accuracy of the documentation in this encounter. Kai Palmer MD documented in this encounter Plan of Treatment Upcoming Encounters Date Type Specialty Care Team Description 02/18/2022 Infusion Hematology and Oncology 02/21/2022 Infusion Hematology and Oncology 02/24/2022 Appointment Hematology and Oncology 02/24/2022 Office Visit Hematology and Oncology Parviz Modi MD [facility] DR HEMATOLOGY/[place] [address] Miroslava Pelayo APRN [facility] DR HEMATOLOGY/[place] [address] 02/24/2022 Office Visit Wound Care 02/24/2022 Appointment Hematology and Oncology 02/26/2022 Office Visit Neurology Leni Bustamante MD [facility] DR NEUROLOGY DEPT. [place], [place] [address] (Wo rk) documented as of this encounter Procedures Procedure Name Priority Date/Time Associated Comments Diagnosis SENSORIMOTOR EXAM Routine 10/14/2021 3:16 PM Acute myeloid Res ults for this EST leukemia in relapse procedur e are in the results section. FUNDUS PHOTOS - OU- Routine 10/14/2021 3:14 PM Acute myeloid R esults for this BOTH EYES EST leukemia in relapse procedur e are in the results section. OCT OPTIC NERVE - OU Routine 10/14/2021 3:13 PM Visual field R esults for this - BOTH EYES EST defects procedure are i n the results section. AUTOMATED VISUAL Routine 10/14/2021 3:12 PM Acute myeloid Resu lts for this FIELD - EXTENDED - EST leukemia in relapse pr ocedure are in OU- BOTH EYES the results section. documented in this encounter Results Sensorimotor Exam [Pr Special Eye Exam] - OU - Both Eyes (10/14/2021 3:16 PM EST) Anatomical Region Laterality Modality Other Specimen (Source) Anatomical Location Collection Method / Collectio n Time Received Time / Laterality Volume Narrative 10/14/2021 3:16 PM EST Sensorimotor examination revealed full extraocular movements in each eye. Herber Iverson Jr. was orthophoric in most directions of gaze. In far right gaze he has a right hypertropia of 2 PD, intermittent esotropia of 3 PD. Kai Palmer MD OPHTHALMOLOGY SERVICES ORD ERABLES Fundus Photos - OU - Both Eyes (10/14/2021 3:14 PM EST) Anatomical Region Laterality Modality Other Specimen (Source) Anatomical Location Collection Method / Collectio n Time Received Time / Laterality Volume Narrative 10/14/2021 3:14 PM EST Right Eye Disc findings include normal observation s. Left Eye Disc findings include normal observation s. Notes Right Inferior hemorrhage Kai Palmer MD OPHTHALMOLOGY SERVICES ORD ERABLES Oct Optic Nerve - OU - Both Eyes (10/14/2021 3:13 PM EST) Anatomical Region Laterality Modality Other Specimen (Source) Anatomical Location Collection Method / Collectio n Time Received Time / Laterality Volume Narrative 10/14/2021 3:13 PM EST Right Eye Quality was good. Findings include khadra l observations. Temporal thickness was normal. Superior thickness was khadra l. Nasal thickness was normal. Inferior thickness was normal. Left Eye Quality was good. Findings include khadra l observations. Temporal thickness was normal. Superior thickness was khadra l. Nasal thickness was normal. Inferior thickness was normal. Notes Jenner Spectral[employer] OCT OD: ??Average RNFL: 103, classification = wnl OS: ??Average RNFL: 102, classification = wnl Implication: No thinning or swelling OU. Kai Palmer MD OPHTHALMOLOGY SERVICES ORD ERABLES Automated Visual Field - Extended - OU - Both Eyes (10/14/2021 3:12 PM EST) Anatomical Region Laterality Modality Other Specimen (Source) Anatomical Location Collection Method / Collectio n Time Received Time / Laterality Volume Narrative 10/14/2021 3:12 PM EST Right Eye Threshold was 24-2. Strategy was REID. R eliability was good. Findings include normal observations. Left Eye Threshold was 24-2. Strategy was REID. R eliability was good. Findings include normal observations. 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 difficileComment: C. 08/20/2021 08/20/2021 diffiicile testing positive 05/25/21. Rule Out C. difficile 10/19/2021 10/19/2021 10/19/2021 4:07 PM EST Rule Out C. difficile 10/28/2021 10/28/2021 10/28/2021 1:34 PM EDT Rule Out C. difficile 11/09/2021 11/09/2021 11/09/2021 3:48 PM EDT Rule Out Respiratory 12/13/2021 12/13/2021 12/13/2021 8:42 PM EDT Rule Out COVID-19 12/13/2021 12/13/2021 12/13/2021 8:4 2 PM EDT documented as of this encounter Care Teams Vice President Of Recruiting Relationship Specialty Start Date End Date Beatriz Maurice PA PCP - General Family Medicine 05/06/21 [address] [place] [address] documented as of this encounter
--- OUTSIDE RECORDS SUMMARY | 2022-02-14 11:14 | XMS_ITS | Encounter Summary ---
:1960 Author Organization [facility] [address] Care Team Providers Name Role Phone Beatriz Maurice Primary Care Provider Encounter Details Date Type Department Care Team Description 10/07/2021 Office Visit Hematology and Annika Geller Stem cell t ransplant Oncology at [facility] [place] [phone] Social History Tobacco Use Types Packs/Day [...] encounter Progress Notes Annika Geller RN - 10/07/2021 1:00 PM EST NMDP and CIBMTR: Contribution of a Blood Sample to the National Marrow Donor Program's Research Sample Repository (B0944) Patient was offered the opportunity to participate in the National Marrow DonorProgram protocol Contribution of a Blood Sample to the National Marrow Donor Program's Research Sample Repository and was given the Adult Allogeneic Recipient Research Consent Form to read and review. Study protocol was reviewed with the patient including study purpose, potiential risks and benefits, voluntary nature of participation and requirements of participation. Discussed confidentiality of patients private health information as specified in the consent form. Patient informed that he may withdraw at anytime and that withdrawal from participation will not compromise access to treatment optionsor care at this institution. Discussed risks of contribution of blood sample/venipuncture and discussed that this would be obtained at the time of a routine blood draw for other purposes. Patient was given ample time to read and review the consent form and ask questions/concerns all of which were answered to satisfaction. Consent form was signed and dated by the patient and BMT coordinator. Original sent to scan in medical record and clean copy was made for patient and mailed to him after visit.[facility] Database Consent Center for International Blood and Marrow Transplant Research ([facility]) Research Database for Hematopoeitic Cell Transplantation and Cellular Therapies (B0943) Patient and caregiver offered the opportunity to participate in the Center for International Blood and Marrow Transplant research database and was given the Adult Allogeneic Research Recipient Consent Form to read and review. Study protocol was reviewed with the patient including study purpose, potential risks and benefits, voluntary nature of participation and requirements of participation. Discussed confidentiality of patients private health information as specified in the consent form. Patient informed that they may withdraw at any time and that withdrawal from participation will not compromise access to treatment options or care at this institution. Patient was given ample time to read and review the consent form and ask questions/concerns all of which were answered to satisfaction. Consent form was signed and dated by the patient and BMT coordinator. Original sent to scan in medical record and clean copy was given to the patient. documented in this encounter Plan of Treatment Upcoming Encounters Date Type Specialty Care Team Description 02/18/2022 Infusion Hematology and Oncology 02/21/2022 Infusion Hematology and Oncology 02/24/2022 Appointment Hematology and Oncology 02/24/2022 Office Visit Hematology and Oncology Parviz Modi MD [facility] HEMATOLOGY/[place] [address] Miroslava Pelayo APRN [facility] DR HEMATOLOGY/[place] [address] 02/24/2022 Office Visit Wound Care 02/24/2022 Appointment Hematology and Oncology 02/26/2022 Office Visit Neurology Leni Bustamante MD [facility] DR NEUROLOGY DEPT. [place], [place] [address] (Wo rk) documented as of this encounter Visit Diagnoses Diagnosis Stem cell transplant candidate documented in this encounter Additional Health Concerns Infection Onset Date Last Indicated Resolved Time History of C. difficileComment: C. diffiicile 08/20/2021 testing positive 05/25/21. documented as of this encounter Care Teams Concrete Engineering Technician Relationship Specialty Start Date End Date Beatriz Maurice PA PCP - General Family Medicine 05/06/21 [address] [place] [address] documented as of this encounter
--- OUTSIDE RECORDS SUMMARY | 2022-02-14 11:14 | XMS_ITS | Encounter Summary ---
:1960 Author Organization [facility] Address [address] [place] [address] Care Team Providers Name Role Phone Beatriz Maurice Primary Care Provider Reason for Visit Auth/Cert Specialty Diagnoses / Procedures Referred By Contact Refer red To Contact Diagnoses AML (acute myeloblastic leukemia) AML Procedures PRO DIAGNOSTIC BONE MARROW BIOPSIES & ASPIRATIONS (OSC MSURG) BONE MARROW BIOPSY AND ASPIRATION; DIAGNOSTIC Referral ID Status Reason Start Date Expiration Date Visits Requ ested Visits Authorized [id number] 1 1 Encounter Details Date Type Department Care Team Description 10/07/2021 Hospital Encounter Outpatient Surgery Radha Modi, [place] Latrice Perez MD [facility] HEMATOLOGY/ONCOLOGY Drive DEPT. [place], [place] [id number] [phone] Social History Tobacco Use Types Packs/Day Years [...] Sign Reading Time Taken Comments Blood Pressure 122/86 10/07/2021 4:26 PM EST Pulse 73 10/07/2021 4:26 PM EST Temperature - - Respiratory Rate 16 10/07/2021 4:26 PM EST Oxygen Saturation 99% 10/07/2021 4:26 PM EST Inhaled Oxygen Concentration - - [...] 5pm or on a weekend: Call the [facility] churn operator at and ask for the physician quality control expert covering for your doctor. Instructions following sedation [...] drainage occurs, please contact your M. D. [place], [place] [id number] [email or web address] [place] [facility] documented in this encounter Medications [...] of Sensura Flako Soft Convex One-piece Pouch #[id number] per month. Ostomy Supplies Misc Dispense 2 boxes 40 each 2 (20/box) of Brava Elastic Barrier strips #[id number] per month. Ostomy Supplies Misc Dispense 1 [...] each 2 12/13/2021 (Ostomy Belt Medium) Belt #[id number] per month. Misc loperamide (Imodium Take 1 [...] Hematology and Oncology Parviz Modi MD [facility] HEMATOLOGY/[place] [address] Miroslava Pelayo APRN [facility] DR HEMATOLOGY/[place] [address] 02/24/2022 Office Visit Wound Care 02/24/2022 Appointment Hematology and Oncology 02/26/2022 Office Visit Neurology Leni Bustamante MD [facility] NEUROLOGY DEPT. [place], [place] [address] (Wo rk) documented as [...] Scan, Peripheral Blood (10/07/2021 3:29 PM EST) [facility] gist Method Time Signature Plat Estimate Decreased [facility] RBC Morphology Abnormal [facility] Macrocytes 1-5 /HPF [facility] Microcytes 6-10 /HPF [facility] Ovalocytes 1-5 /HPF [facility] Specimen Anatomical Collection Method Collection Time Receive d Time (Source) Location / / Volume Laterality Blood 10/07/2021 3:29 PM 4:42 EST PM EST Resulting Agency Comment Spec In Lab Hayley Palmer HEYDI HEMATOLOGY ORDERABLES Performing Organization Address City/State/[place] [address] Differential, Automated (10/07/2021 3:29 PM EST) P athologist Signature Neutrophils % 62.6 % [facility] Neutr Abs (ANC) 2.88 1.70 - [facility] 6.10 [facility] x10(3)[facility] LABORATORY Lymphocytes % 25.0 % [facility] Lymphocytes Abs 1.2 0.9 - 3.2 [facility] x10(3)/[facility] LABORATORY Monocytes % 11.5 % [facility] Monocyte Abs 0.5 0.3 - 0.9 [facility] x10(3)[facility] LABORATORY Eosinophils % 0.0 % [facility] Eosinophils Abs 0.0 0.0 - 0.4 [facility] x10(3)/[facility] LABORATORY Basophils % 0.2 % [facility] Basophils Abs 0.0 0.0 - 0.1 [facility] x10(3)/[facility] LABORATORY Immature Gran % 0.70 % [facility] Comment: Immature granulocytes(IG's)percentage an d absolute count will include metamyelocytes, myelocytes, and promyelo cytes. Blood smears from CBCs yielding IG's will be scanned manually for concor dance. If this scan disagrees with the automated IG or if promyelocytes are not ed, a manual differential will be performed. Zara Gran Abs 0.03 0.00 - 0.04 x10(3)/[facility] LABORATORY Specimen Anatomical Collection Method Collection Time Receive d Time (Source) Location / / Volume Laterality Blood 10/07/2021 3:29 PM 2 4:42 EST PM EST Resulting Agency Comment Spec In Lab Hayley Loza Spencer SOLIZ HEMATOLOGY ORDERABLES Performing Organization Address City/State/[place] [address] (ABNORMAL) Hemogram (10/07/2021 3:29 PM EST) P athologist Signature WBC 4.6 4.0 - 9.5 [facility] x10(3)/[facility] LABORATORY RBC 2.59 (L) 4.58 - 5.54 [facility] x10(6)/[facility] LABORATORY Comment: Dimorphic RBC population. Hemoglobin 9.0 (L) 13.7 - 16.5 g/dL [facility] Hematocrit 26.3 (L) 40.5 - 48.5 % [facility] MCV 101.5 (H) 82.9 - 93.1 fL [facility] MCH 34.7 (H) 27.5 - 32.1 pg [facility] MCHC 34.2 32.0 - 35.7 g/dL [facility] Platelets 119 (L) 145 - 357 x10(3)/[facility] LABORATORY RDWSD Not Measured 36.0 - 45.0 fL [facility] RDWCV Not Measured 11.4 - 13.8 % [facility] MPV 10.6 7.6 - 12.9 fL [facility] LABORATORY nRBC % Auto 0.0 % [facility] nRBC Abs Auto 0.000 0.000 - 0.000 [facility] x10(3)/[facility] LABORATORY Specimen Anatomical Collection Method Collection Time Receive d Time (Source) Location / / Volume Laterality Blood 10/07/2021 3:29 PM 2 4:42 EST PM EST Resulting Agency Comment Spec In Lab Hayley Loza Spencer [facility] HEMATOLOGY ORDERABLES Performing Organization Address City/State/ZIP Code Phon e [place] [facility] [address] [facility] Bone Marrow Final Report (10/07/2021 2:13 PM EST) Component Value Ref Test Analysis Performed At [facility] Range Method Time Signature Bone Marrow [id number] ? Location: [facility] Final Report [place] The signing pathologist has (i) examined the relevant preparation(s) for the [facility] specimen(s) and (ii) rendered or confirmed the diagnosis(es) . [facility] . ? Bone Marrow Final [...] MD Verified: ??10/08/2021 19:27 ??Hematopathologist Performed at: ??-[facility] Dept. of Pathology, [place], [place] DISCUSSION Concurrent flow cytometry st udies [...] developed and their performance characteristics determined by [facility] Clinical Laboratories. ??They have not been cleared or approved by the U.S. Food and Drug Administration, although such approval is not required for analyte -specific reagents of this type. ??Appropriate positive and negative controls are included for each case. CLINICAL INFORMATION Specimen: ? 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 Llt-[id number]-WHY marrow evaluation SPECIMEN PROCESSING A - Labeled/Fixative: [...] MD Verified: ??10/08/2021 17:27 ??Hematopathologist Performed at: ??-[facility] Dept. of Pathology, [place], [place] DISCUSSION The DZ04-ezp low-SSC flow sc atterplot region represents ~1% [...] the Clinical Flow Cytometry Lab oratory at [facility]. It has not been cleared or [...] complexity clinic al laboratory testing. SPECIMEN PROCESSING [id number] . SPECIMEN PROCESSING Cells for immunophenotypic a [...] and FLT3-ITD+ AML. He is now undergoing [id number] evaluation. Specimen (Source) Anatomical Collection Method Collection Time Re ceived Time Location / / Volume Laterality 10/07/2021 2:13 PM EST Hayley Loza Spencer [facility] PATHOLOGY/CYTOLOGY ORDERABLE S Performing Organization Address City/[facility]/ZIP Code Phon e Number [address] Immunophenotyping Flow Cytometry (10/07/2021 2:13 PM EST) Component Value Ref Test Analysis Performed At [facility] Range Method Time Signature Immunophenotyping See [facility] LABORATORY Comment: When completed by the Pathologist, the F low Cytometry Report ([id number]) will display under the Pathology Result s section within [facility]. Specimen Anatomical Collection Method Collection Time Receive d Time (Source) Location / / Volume Laterality Bone Marrow 10/07/2021 2:13 PM 2 4:41 EST PM EST Resulting Agency Comment Spec In Lab Hayleywendy Palmer APRN HEMATOLOGY ORDERABLES Performing Organization Address City/[facility]/[place] [address] Iron Stain, Bone Marrow (10/07/2021 2:13 PM EST) [facility] Method Time Signature Iron Stain BM See Comment [facility] Comment: See Bone Marrow Report [id number] under Hematopathology Reports. Specimen Anatomical Collection Method Collection Time Receive d Time (Source) Location / / Volume Laterality Bone Marrow 10/07/2021 2:13 PM 2 4:41 EST PM EST Resulting Agency Comment Spec In Lab Hayley Loza Spencer SOLIZ HEMATOLOGY ORDERABLES Performing Organization Address City/[facility]/ZIP [facility] Phon e Number [address] documented in this encounter Visit Diagnoses Not on filedocumented in this encounter Active and Recently Administered Medications Times are shown in EST. PRN Medication Order 10/05/2021 10/06/2021 10/07/2021 fentaNYL (pf) (50 mcg/mL) multi-dose injection 25 mcg (CANCELED) 1558 (Given - Provider: Don German RN)1606 (Given - Provider: Don German RN)1616 (Given - Provider: Don German RN) 25 mcg, Intravenous, EVERY 5 MIN [...] documented as of this encounter Care Teams Nitro Man Relationship Specialty Start Date End Date Beatriz Maurice PA PCP - General Family Medicine 05/06/21 [address] [place] [address] documented as of this encounter
--- OUTSIDE RECORDS SUMMARY | 2022-02-14 11:14 | XMS_ITS | Encounter Summary ---
:1960 Author Organization [facility] [place] [address] Care Team Providers Name Role Phone Beatriz Maurice Primary Care Provider Encounter Details Date Type Department Care Team Description 10/04/2021 Telephone Ophthalmology at [facility] Dago Walton, [facility] [place] [address] [facility] [phone] OPHTHALMOLOGY [place], [place] [address] (Wo rk) Social History Tobacco [...] this encounter Miscellaneous Notes Telephone Encounter - Mark Adams - 10/04/2021 1:02 PM EST Called patient, LVM. Wondering when stem cell surgery is so we can get him scheduled appropriately. documented in this encounter Plan of Treatment Upcoming Encounters Date Type Specialty Care Team Description 02/18/2022 Infusion Hematology and Oncology 02/21/2022 Infusion Hematology and Oncology 02/24/2022 Appointment Hematology and Oncology 02/24/2022 Office Visit Hematology and Oncology Parviz Modi MD [facility] DR HEMATOLOGY/[place] [address] Miroslava Pelayo APRN [facility] DR HEMATOLOGY/[place] [address] 02/24/2022 Office Visit Wound Care 02/24/2022 Appointment Hematology and Oncology 02/26/2022 Office Visit Neurology Leni Bustamante MD [facility] NEUROLOGY DEPT. [place], [place] [address] (Wo rk) documented as of this encounter Visit Diagnoses Not on filedocumented in this encounter Additional Health Concerns Infection Onset Date Last Indicated Resolved Time History of C. difficileComment: C. diffiicile 08/20/2021 testing positive 05/25/21. documented as of this encounter Care Teams Sow Manager Relationship Specialty Start Date End Date Beatriz Maurice PA PCP - General Family Medicine 05/06/21 [address] [place] [address] documented as of this encounter
--- OUTSIDE RECORDS SUMMARY | 2022-02-14 11:14 | XMS_ITS | Encounter Summary ---
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 Ostomy Supplies Misc Dispense 2 boxes 40 each 2 (20/box) of Brava Elastic Barrier strips #[id number] per month. Ostomy Supplies Misc Dispense 1 [...] 24 hr Colostomy Belt Dispense 1 Sensura Phenix 1 each 2 12/13/2021 (Ostomy Belt Medium) Belt #[id number] per month. Misc loperamide (Imodium Take 1 [...] encounter Progress Notes Emilia Harvey RN - 10/15/2021 8:22 AM EST Patient Name: Herber Iverson Jr. Patient Age: 61 y.o. Birthdate: 1960 Admit date: 10/15/2021 Attending Physician: No att. providers found Access visit. See MAR and/or flowsheet. documented in this encounter Plan of Treatment Upcoming Encounters Date Type Specialty Care Team Description 02/18/2022 Infusion Hematology and Oncology 02/21/2022 Infusion Hematology and Oncology 02/24/2022 Appointment Hematology and Oncology 02/24/2022 Office Visit Hematology and Oncology Parviz Modi MD [facility] DR HEMATOLOGY/[place] [address] Miroslava Pelayo APRN [facility] DR HEMATOLOGY/[place] [address] 02/24/2022 Office Visit Wound Care 02/24/2022 Appointment Hematology and Oncology 02/26/2022 Office Visit Neurology Leni Bustamante MD [facility] DR NEUROLOGY DEPT. [place], [place] [address] (Wo rk) documented as of this encounter Procedures Procedure Name Priority Date/Time Associated Comments Diagnosis TYPE AND SCREEN STAT 10/15/2021 8:15 AM Result s for this VALIDITY EST procedure are i n the results section. ABORH RECHECK STATUS STAT 10/15/2021 8:15 AM R esults for this EST procedure are i n the results section. HEMOGRAM STAT 10/15/2021 8:15 AM Acute myeloid Results for this EST leukemia not having procedur e are in achieved remissi on the results Anemia, unspecified section. 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 ce S/P partial resection of colon DIFFERENTIAL, STAT 10/15/2021 8:15 AM Acute myeloid Results for this AUTOMATED EST leukemia not having procedur e are in achieved remissi on the results Anemia, unspecified section. 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 ce S/P partial resection of colon ABO/RH TYPING STAT 10/15/2021 8:15 AM Acute myeloid Results for this EST leukemia not having procedur e are in achieved remissi on the results Anemia, unspecified section. 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 ce S/P partial resection of colon HC CBC,PLT & AUTO DIFF STAT 10/15/2021 8:15 AM Acute myeloi d EST leukemia not having achieved remissi on Anemia, unspecified 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 ce S/P partial resection of colon ANTIBODY SCREEN STAT 10/15/2021 8:15 AM Acute myeloid Resul ts for this EST leukemia not having procedur e are in achieved remissi on the results Anemia, unspecified section. 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 ce S/P partial resection of colon HC ABO-MICROTITER STAT 10/15/2021 8:15 AM Acute myeloid EST leukemia not having achieved remissi on Anemia, unspecified 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 ce S/P partial resection of colon COMPREHENSIVE Routine 10/15/2021 8:15 AM Acute myeloid Results for this METABOLIC PANEL EST leukemia not having proce dure are in (NON-FASTING) achieved remissi on the results Anemia, unspecified section. 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 ce S/P partial resection of colon documented in this encounter Results Type and Screen Validity (10/15/2021 8:15 AM EST) [facility] gist Method Time Signature T&S only valid [facility] LABORATORY Comment: This Type and Screen result is only valid at the [facility] Hospital Specimen Anatomical Collection Method Collection Time Receive d Time (Source) Location / / Volume Laterality Blood 10/15/2021 8:15 AM 8:27 EST AM EST Resulting Agency Comment Spec In Lab Parviz Modi MD BLOOD BANK ORDERABLES Performing Organization Address City/State/ZIP Code Phon e Number [address] ABORH Recheck Status (10/15/2021 8:15 AM EST) [facility] Signature ABORH Type Completed [facility] LABORATORY Specimen Anatomical Collection Method Collection Time Receive d Time (Source) Location / / Volume Laterality Blood 10/15/2021 8:15 AM 2 8:27 EST AM EST Resulting Agency Comment Spec In Lab Parviz Modi MD BLOOD BANK ORDERABLES Performing Organization Address City/State/ZIP Code Phon e Number [address] Antibody screen (10/15/2021 8:15 AM EST) [facility] Ab Screen Negative [facility] LABORATORY Expires at 10/18/2021 [facility] [id number] on: [facility] LABORATORY Specimen Anatomical Collection Method Collection Time Receive d Time (Source) Location / / Volume Laterality Blood 10/15/2021 8:15 AM 2 8:27 EST AM EST Resulting Agency Comment Spec In Lab Parviz Modi MD BLOOD BANK ORDERABLES Performing Organization Address City/State/ZIP Code Phon e Number [address] (ABNORMAL) Differential, Automated (10/15/2021 8:15 AM EST) [facility] Time Signature Neutrophils % 65.8 % [facility] LABORATORY Neutr Abs (ANC) 2.79 1.70 - [facility] [address] [facility] x10(3)/[facility] LABORATORY Lymphocytes % 18.6 % [facility] LABORATORY Lymphocytes Abs 0.8 (L) 0.9 - 3.2 [facility] x10(3)/[facility] LABORATORY Monocytes % 14.2 % [facility] LABORATORY Monocyte Abs 0.6 0.3 - 0.9 [facility] x10(3)/[facility] LABORATORY Eosinophils % 0.0 % [facility] LABORATORY Eosinophils Abs 0.0 0.0 - 0.4 [facility] x10(3)/[facility] LABORATORY Basophils % 0.2 % [facility] LABORATORY Basophils Abs 0.0 0.0 - 0.1 [facility] x10(3)/[facility] LABORATORY Immature Gran % 1.20 % [facility] LABORATORY Comment: Immature granulocytes(IG's)percentage an d absolute count will include metamyelocytes, myelocytes, and promyelo cytes. Blood smears from CBCs yielding IG's will be scanned manually for concor dance. If this scan disagrees with the automated IG or if promyelocytes are not ed, a manual differential will be performed. [facility]ara Gran Abs 0.05 (H) 0.00 - 0.04 x10(3)/[facility] LABORATORY Specimen Anatomical Collection Method Collection Time Receive d Time (Source) Location / / Volume Laterality Blood 10/15/2021 8:15 AM 2 8:28 EST AM EST Resulting Agency Comment Spec In Lab Parviz Modi MD HEMATOLOGY ORDERABLES Performing Organization Address City/[facility]/ZIP Code Phon e Number [address] ABO/Rh Typing (10/15/2021 8:15 AM EST) P athologist Signature ABORh Type O Pos [facility] LABORATORY Specimen Anatomical Collection Method Collection Time Receive d Time (Source) Location / / Volume Laterality Blood 10/15/2021 8:15 AM 2 8:27 EST AM EST Resulting Agency Comment Spec In Lab Parviz Modi MD BLOOD BANK ORDERABLES Performing Organization Address City/[facility]/[place] [address] (ABNORMAL) Hemogram (10/15/2021 8:15 AM EST) Patholo gist Method Time Signature WBC 4.2 4.0 - 9.5 [facility] x10(3)/[facility] LABORATORY RBC 2.62 (L) 4.58 - [facility] [address] [facility] x10(6)/[facility] LABORATORY Hemoglobin 9.3 (L) 13.7 - [facility] 16.5 g/dL [facility] LABORATORY Hematocrit 27.4 (L) 40.5 - [facility] [place] 48.5 % [facility] LABORATORY MCV 104.6 (H) 82.9 - [facility] 93.1 [facility] LABORATORY MCH 35.5 (H) 27.5 - [facility] 32.1 pg [facility] LABORATORY MCHC 33.9 32.0 - [facility] 35.7 g/dL [facility] LABORATORY Platelets 127 (L) 145 - 357 [facility] x10(3)/[facility] LABORATORY RDWSD 82.6 (H) 36.0 - [facility] AR[facility] 45.0 [facility] LABORATORY RDWCV 22.2 (H) 11.4 - [facility] 13.8 % [facility] LABORATORY MPV 11.5 7.6 - 12.9 [facility] LABORATORY nRBC % Auto 0.0 % [facility] LABORATORY nRBC Abs Auto 0.000 0.000 - [facility] 0.[address] [facility] x10(3)/[facility] LABORATORY Specimen Anatomical Collection Method Collection Time Receive d Time (Source) Location / / Volume Laterality Blood 10/15/2021 8:15 AM 8:28 EST AM EST Resulting Agency Comment Spec In Lab Parviz Modi MD HEMATOLOGY ORDERABLES Performing Organization Address City/State/[place] [address] (ABNORMAL) Comprehensive metabolic panel (non-fasting) (10/15/2021 8:15 AM EST) P athologist Signature Glucose Lvl 89 65 - 199 [facility] mg/dL [facility] LABORATORY Comment: Diabetes: >=200 mg/dL plus symp toms BUN 28 (H) 10 - 20 mg/dL [facility] LABORATORY Creatinine 1.09 0.80 - 1.50 mg/dL [facility] LABORATORY Sodium 139 135 - 145 mmol/L [facility] LABORATORY Potassium 4.5 3.5 - 5.0 mmol/L [facility] LABOR[facility]ORY Comment: Please note: ??Patients with WBC >100,00 0 may have falsely elevated Potassium levels. ??For accurate Potassium quantif ication in these patients send serum separator tube (gold top) for subsequent determinations. ??Contact the Clinical Chemistry Laboratory if there are any qu estions. Chloride 108 (H) 98 - 107 mmol/L [facility] LABORATORY CO2 18 (L) 22 - 31 mmol/L [facility] LABORATORY Anion Gap 13 5 - 15 mmol/L [facility] LABORATORY Calcium 9.6 8.5 - 10.5 mg/dL [facility] LABORATORY Total Protein 7.4 6.1 - 8.0 g/dL [facility] LABORATORY Albumin 4.2 3.2 - 5.2 g/dL [facility] LABORATORY AST 30 0 - 39 unit/L [facility] LABORATORY ALT 37 0 - 55 unit/L [facility] LABORATORY Alk Phos 104 40 - 130 unit/L [facility] LABORATORY Total Bilirubin 0.2 0.2 - 1.3 mg/dL [facility] LABORATORY Estimated GFR 73 >=60 mL/min/1.73 m?? [facility] LABORATORY [...] (Source) Location / / Volume Laterality Blood 10/15/2021 8:15 AM 8:28 EST AM EST Resulting Agency Comment Spec In Lab Parviz Modi MD CHEMISTRY ORDERABLES Performing Organization Address City/State/ZIP [place] [address] documented in this encounter Visit Diagnoses Diagnosis Acute myeloid leukemia not having achiev ed remission Anemia, unspecified type Thrombocytopenia Thrombocytopenia, unspecified Leukocytosis, unspecified type H/O Clostridium difficile infection Personal history of other infectious and parasitic disease 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 status S/P partial resection of colon Other postprocedural status documented in this encounter Administered Medications Inactive Administered Medications - up to 3 most recent administrations Medication Order MAR Action Action Date Dose Rate Site sodium chloride 0.9 % (flush) (BD Given 10/15/2021 8:19 AM EST 2 0 mLs PosiFlush Normal Saline 0.9) flush 20 mL 20 mL, Intravenous, EVERY 1 MIN PRN, Starting on Thu10/15/21 at 0758, Until Thu10/16/21 at 0234, Lab Draws, Implanted Port-IV flush after blood draws, Routine documented in this encounter Additional Health Concerns Infection Onset Date Last Indicated Resolved Time History of C. difficileComment: C. diffiicile 08/20/2021 testing positive 05/25/21. documented as of this encounter Care Teams Editor [employer] Relationship Specialty Start Date End Date Beatriz Maurice PA PCP - General Family Medicine 05/06/21 [address] [place] [address] documented as of this encounter
--- OUTSIDE RECORDS SUMMARY | 2022-02-14 11:14 | XMS_ITS | Encounter Summary ---
:1960 Author Organization [facility] [place] [address] Care Team Providers Name Role Phone Beatriz Maurice Primary Care Provider Reason for Visit Diagnostic Test (Routine) - Canceled Specialty Diagnoses / Procedures Referred By Contact Refer red To Contact Radiology Diagnoses Paroxysmal atrial fibrillation Jack Cintron MD [facility] Rad Nuclear Med Procedures NM Pharmacologic Stress and Rest Myocardial Perfusion [facility] [place] [address] [place] [address] Fax: Referral ID Status Reason Start Expiration Visits Visits Date Date Requested Authorized [id number] Canceled Specialty 01/06/2022 08/16/2022 1 1 Service Requested Encounter Details Date Type Department Care Team Description 10/14/2021 Hospital Encounter Nuclear Medicine at [facility] Canceled Latrice Blankenship MD (D-CANCELLED BY [facility]) [facility] [place] [address] [place] [phone] Social History Tobacco Use Types Packs/Day Years [...] boxes 20 each 2 (10/box) of Sensura [place] Soft Convex One-piece Pouch #[id number] per month. Ostomy Supplies Misc Dispense 2 boxes 40 each 2 (20/box) of Brava Elastic Barrier strips #[id number] per month. Ostomy Supplies Misc Dispense 1 [...] 24 hr Colostomy Belt Dispense 1 Sensura [place] 1 each 2 12/13/2021 (Ostomy Belt Medium) [...] Visit Hematology and Oncology Parviz Modi MD [facility] DR HEMATOLOGY/[place] [address] Miroslava Pelayo APRN [facility] DR HEMATOLOGY/[place] [address] 02/24/2022 Office Visit Wound Care 02/24/2022 Appointment Hematology and Oncology 02/26/2022 Office Visit Neurology Leni Bustamante MD [facility] NEUROLOGY DEPT. [place], [place] [address] (Wo rk) documented as of this encounter Visit Diagnoses Not on filedocumented in this encounter Additional Health Concerns Infection Onset Date Last Indicated Resolved Time History of C. difficileComment: C. diffiicile 08/20/2021 testing positive 05/25/21. documented as of this encounter Care Teams Transport Operations Inspector Relationship Specialty Start Date End Date Beatriz Maurice PA PCP - General Family Medicine 05/06/21 [address] [place] [address] documented as of this encounter
--- OUTSIDE RECORDS SUMMARY | 2022-02-14 11:15 | XMS_ITS | Encounter Summary ---
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 He has AFib and now on flacanaide. Please help optimize Parviz Modi MD Storms, Daniel R, MD cardiac status and advise on any chages for transplant. [facility] HEMATOLOGY/[place] [address] Referral ID Status Reason Start Date Expiration Date Visits V isits Requested Authorized [id number] Closed Consult, 09/16/2021 09/16/2022 1 1 Test & Treat Diagnostic Test (Routine) - Closed Specialty Diagnoses / Procedures Referred By Contact Refer red To Contact Radiology Diagnoses Stem cell transplant candidate Parviz Modi MD [facility] Interventionl Rad Procedures IR Tunneled Central Venous Access Non-Dialysis [facility] Conchita Hull HEMATOLOGY/[place] [address] [place] [address] Referral ID Status Reason Start Date Expiration Date Visits V isits Requested Authorized [id number] Closed Specialty 09/16/2021 03/16/2023 1 1 Service Requested Encounter Details Date Type Department Care Team Description 09/16/2021 Orders Only Hematology and Parviz Modi transplant candidate (Primary Dx); Oncology at [facility] MD Mars Chronic atrial fibrillation [facility] [address] Hull HEMATOLOGY/ONCOLOGY [place], [place] DEPT. [address] [place] [address] [phone] (Wo rk) Social History Tobacco Use Types [...] Parviz Modi MD [facility] HEMATOLOGY/[place] [address] Miroslava Pelayo APRN [facility] HEMATOLOGY/[place] [address] 02/24/2022 Office Visit Wound Care 02/24/2022 Appointment Hematology and Oncology 02/26/2022 Office Visit Neurology Leni Bustamante MD [facility] NEUROLOGY DEPT. [place], [place] [address] (Wo rk) Scheduled Referrals Name Type Priority Associated Diagnoses Order S chedule Referral to Outpatient Referral Routine Stem cell transplant Ordered: Cardiology candidate 09/16/2021 Chronic atrial fibrillation documented as of this encounter Results IR Tunneled Central Venous Access Non-Dialysis (10/15/2021 1:02 PM EST) Anatomical Region Laterality Modality Chest, Vascular X-Ray Angiography Specimen (Source) Anatomical Location Collection Method / Collectio n Time Received Time / Laterality Volume Narrative 10/16/2021 10:27 AM EST Interventional Radiology Procedure Note Procedure: Tunneled single-lumen cathete r implant Indication: Acute myeloid leukemia, dura ble mcfp central venous access for frequent infusions Procedure [...] 10/15/2021 Parviz Modi MD IMG IR ORDERABLES Pulmonary Function Testing (10/04/2021 9:37 AM EST) athologist Signature FVC Actual 4.83 L COMPAS [...] / FVC LLN 65 % COMPAS PFT [id number] Actual 3.76 L/s COMPAS PFT Pre-BD [id number] Pre-BD 129 % COMPAS PFT % of Predicted [id number] 2.92 L/s COMPAS PFT Predicted [id number] Pre-BD 0.73 COMPAS PFT Z-Score DLCO Hb [...] City/State/ZIP Code Phon e Number COMPAS PFT XR Chest PA & Lateral (Generic) (09/27/2021 11:14 AM EST) Anatomical Region Laterality Modality Chest N/A Digital Radiography Specimen (Source) Anatomical Location Collection Method / Collectio n Time Received Time / Laterality Volume Impressions 09/27/2021 12:06 PM EST Left lower lobe scar versus atelectasis. Otherwise normal chest radiograph. Thank you for letting us participate in the care of this patient. ??If you are a health care provider and have any questi ons regarding this report, please contact the number below. ??For patients who have questions please contact the health senior care assistant that requested your imaging first. ? Narrative 09/27/2021 12:06 PM EST EXAMINATION: XR CHEST PA AND LATERAL (GENERIC) CLINICAL HISTORY: pre stem cell transpla nt work up TECHNIQUE: PA and lateral views of the chest COMPARISON: July 11, 2021 CT FINDINGS: Lungs are clear without mass nor consoli dation. Left lower lobe scar versus atelectasis. No pleural effusion or pneumothorax. Cardiomediastinal contours and pulmonary vasculature are normal. No free air below the diaphragm or focal extrathoracic soft tissue abnormality. No displaced fracture. Procedure Note Faye Urias MD - 09/27/2021 EXAMINATION: XR CHEST PA AND LATERAL (GE NERIC) CLINICAL HISTORY: pre stem cell transpla nt work up TECHNIQUE: PA and lateral views of the chest COMPARISON: July 11, 2021 CT FINDINGS: Lungs are clear without mass nor consoli dation. Left lower lobe scar versus atelectasis. No pleural effusion or pneumothorax. Cardiomediastinal contours and pulmonary vasculature are normal. No free air below the diaphragm or focal extrathoracic soft tissue abnormality. No displaced fracture. IMPRESSION Left lower lobe scar versus atelectasis. Otherwise normal chest radiograph. Thank you for letting us participate in the care of this patient. If you are a health care provider and have any questi ons regarding this report, please contact the number below. For patients w ho have questions please contact the health senior care assistant that requested your imaging first. Electronically signed by: Faye Urias MD , [facility] ([phone]), at 09/27/2021 12:06 PM Parviz Modi MD IMG DX ORDERABLES (ABNORMAL) Urinalysis with reflex Culture (09/27/2021 10:43 AM EST) [facility] Method Time Signature Glucose UA Negative Negative [facility] mg/dL [facility] Protein UA Trace (A) Negative [facility] mg/dL [facility] Bilirubin UA Negative Negative [facility] mg/dL [facility] Comment: Clinical correlation required for positi ve Urine Bilirubin results as false positive may occur with some drugs and d rug related products. If a false positive is suspected a serum total bili estrella should be considered if clinically indicated. Urobilinogen UA Normal Normal mg/dL [facility] pH UA 5.5 5.0 - 8.0 [facility] Blood UA Negative Negative mg/dL [facility] Ketones UA Negative Negative mg/dL [facility] Nitrite UA Negative Negative [facility] Leukocytes UA Negative Negative [facility] LABORATORY Appearance UA Clear Clear [facility] Spec Tow UA 1.021 1.005 - 1.030 [facility] Color UA Yellow Yellow [facility] Culture Reflexed No [facility] Specimen Anatomical Collection Method Collection Time Receive d Time (Source) Location / / Volume Laterality Clean Catch 09/27/2021 10:43 09/27/2021 Urine AM EST 10:59 AM EST Resulting Agency Comment Spec In Lab Parviz Modi MD URINE ORDERABLES Performing Organization Address City/[facility]/ZIP Code Phon e Number [address] Varicella zoster Antibody, IgG (09/27/2021 10:36 AM EST) Analysis Performed At Patho logist Time Signature Varicella IgG Positive Positive [facility] Comment: A positive result for this assay is cons idered to be an indicator of positive immune status. Specimen Anatomical Collection Method Collection Time Receive d Time (Source) Location / / Volume Laterality Blood 09/27/2021 10:36 09/27/2021 1:23 AM EST PM EST Resulting Agency Comment Spec In Lab Parviz Modi MD IMMUNOLOGY ORDERABLES Performing Organization Address City/[facility]/ZIP Code Phon e Number [address] TSH (09/27/2021 10:36 AM EST) P athologist Signature TSH 3.30 0.27 - 4.20 [facility] mcIU/mL [facility] Comment: Reference Interval (mcIU/mL): Females: ??First Trimester: 0.23-3.88 ??Second Trimester: 0.22-3.90 ??Third Trimester: 0.44-4.66 Specimen Anatomical Collection Method Collection Time Receive d Time (Source) Location / / Volume Laterality Blood 09/27/2021 10:36 09/27/2021 AM EST 10:46 AM EST Resulting Agency Comment Spec In Lab Parviz Modi MD CHEMISTRY ORDERABLES Performing Organization Address City/[facility]/ZIP Code Phon e Number [address] Toxoplasma Antibody, IgM (09/27/2021 10:36 AM EST) [facility] Method Time Signature Toxoplasma IgM Negative Negative [facility] Specimen Anatomical Collection Method Collection Time Receive d Time (Source) Location / / Volume Laterality Blood 09/27/2021 10:36 09/27/2021 1:23 AM EST PM EST Resulting Agency Comment Spec In Lab Parviz Modi MD CHEMISTRY ORDERABLES Performing Organization Address City/[facility]/[place] [address] Toxoplasma Antibody, IgG (09/27/2021 10:36 AM EST) [facility] Method Time Signature Toxoplasma IgG Negative Negative [facility] Specimen Anatomical Collection Method Collection Time Receive d Time (Source) Location / / Volume Laterality Blood 09/27/2021 10:36 09/27/2021 1:23 AM EST PM EST Resulting Agency Comment Spec In Lab Parviz Modi MD IMMUNOLOGY ORDERABLES Performing Organization Address City/[facility] [place] [address] (ABNORMAL) PSA (Ultrasensitive) (09/27/2021 10:36 AM EST) Analysis Performed At [facility] Time Signature PSA Total 4.79 (H) 0.00 - [facility] (Ultrasensitiv 4.00 ng/mL [facility]ORATORY Comment: PLEASE NOTE: The above reference interva l is intended for healthy males with an intact prostate. Values within this refe rence interval may indicate recurrence in men who have undergone radical prosta tectomy. Specimen Anatomical Collection Method Collection Time Receive d Time (Source) Location / / Volume Laterality Blood 09/27/2021 10:36 09/27/2021 AM EST 10:46 AM EST Resulting Agency Comment Spec In Lab Parviz Modi MD CHEMISTRY ORDERABLES Performing Organization Address City/[facility]/ZIP [facility] Phon e Number [address] Phosphorus (09/27/2021 10:36 AM EST) P athologist Signature Phosphorus 4.1 2.5 - 4.5 J[facility] ARASELI mg/dL [facility] Specimen Anatomical Collection Method Collection Time Receive d Time (Source) Location / / Volume Laterality Blood 09/27/2021 10:36 09/27/2021 AM EST 10:46 AM EST Resulting Agency Comment Spec In Lab Parviz Modi MD CHEMISTRY ORDERABLES Performing Organization Address City/[facility]/ZIP Code Phon e Number [address] (ABNORMAL) Magnesium (09/27/2021 10:36 AM EST) athologist Signature Magnesium 0.67 (L) 0.69 - 1.07 [facility] mmol/L [facility] Specimen Anatomical Collection Method Collection Time Receive d Time (Source) Location / / Volume Laterality Blood 09/27/2021 10:36 09/27/2021 AM EST 10:46 AM EST Resulting Agency Comment Spec In Lab Parviz Modi MD CHEMISTRY ORDERABLES Performing Organization Address City/[facility]/[place] [address] (ABNORMAL) Lactate Dehydrogenase (09/27/2021 10:36 AM EST) athologist Signature LDH 430 (H) 110 - 220 [facility] unit/L [facility] Specimen Anatomical Collection Method Collection Time Receive d Time (Source) Location / / Volume Laterality Blood 09/27/2021 10:36 09/27/2021 AM EST 10:46 AM EST Resulting Agency Comment Spec In Lab Parviz Modi MD CHEMISTRY ORDERABLES Performing Organization Address City/[facility]/[place] [address] IgA (09/27/2021 10:36 AM EST) athologist Signature IgA 290 70 - 400 J[facility]ASELI mg/dL [facility] Specimen Anatomical Collection Method Collection Time Receive d Time (Source) Location / / Volume Laterality Blood 09/27/2021 10:36 09/27/2021 AM EST 10:46 AM EST Resulting Agency Comment Spec In Lab Parviz Modi MD IMMUNOLOGY ORDERABLES Performing Organization Address City/State/[place] [address] (ABNORMAL) HSV 1 and 2 IgG Antibodies (09/27/2021 10:36 AM EST) [facility] Method Time Signature HSV Type 1 Positive (A) Negative [facility] Antibody, IgG [facility] HSV Type 2 Negative Negative [facility] Antibody, IgG [facility] Specimen Anatomical Collection Method Collection Time Receive d Time (Source) Location / / Volume Laterality Blood 09/27/2021 10:36 09/27/2021 1:23 AM EST PM EST Resulting Agency Comment Spec In Lab Parviz Modi MD IMMUNOLOGY ORDERABLES Performing Organization Address City/[facility]/[place] [address] (ABNORMAL) Ferritin (09/27/2021 10:36 AM EST) athologist Signature Ferritin 4,446 (H) 30 - 400 [facility] ng/mL [facility] Comment: Pediatric reference ranges not verified at [facility], interpret with caution. Reference ranges for females greater miguel a n 50 years of age approach values for men, i.e., 30-400 ng/mL. Specimen Anatomical Collection Method Collection Time Receive d Time (Source) Location / / Volume Laterality Blood 09/27/2021 10:36 09/27/2021 AM EST 10:46 AM EST Resulting Agency Comment Spec In Lab Parviz Modi MD CHEMISTRY ORDERABLES Performing Organization Address City/State/[place] [address] (ABNORMAL) Júnior-Smith Virus Antibodies (09/27/2021 10:36 AM EST) [facility] Method Time Signature EBV (VCA) IgG Positive Negative JIA Antibody (A) [facility] EBV (VCA) IgM Negative Negative JIA Antibody [facility] EBNA Antibodies Positive Negative JIA (A) [facility] EBV Past EBV JIA Interpretation infection. [facility] Comment: In most populations, at least 90% of the adult population will have been infected with EBV some time in the past and therefore, will be positive for anti-VCA/IgG and anti-EBNA. Antibodies t o EBNA develop 6-8 weeks after primary infection and remain present for life. P resence of VCA/IgM antibodies indicates recent primary infection with EBV. Specimen Anatomical Collection Method Collection Time Receive d Time (Source) Location / / Volume Laterality Blood 09/27/2021 10:36 09/27/2021 1:23 AM EST PM EST Resulting Agency Comment Spec In Lab Parviz Modi MD IMMUNOLOGY ORDERABLES Performing Organization Address City/State/[place] [address] (ABNORMAL) Comprehensive metabolic panel (non-fasting) (09/27/2021 10:36 AM EST) P athologist Signature Glucose Lvl 92 65 - 199 [facility] mg/dL [facility] Comment: Diabetes: >=200 mg/dL plus symp toms BUN 21 (H) 10 - 20 mg/dL [facility] Creatinine 1.18 0.80 - 1.50 mg/dL [facility] Sodium 139 135 - 145 mmol/L [facility] Potassium 4.2 3.5 - 5.0 mmol/L [facility] Comment: Please note: ??Patients with WBC >100,00 0 may have falsely elevated Potassium levels. ??For accurate Potassium quantif ication in these patients send serum separator tube (gold top) for subsequent determinations. ??Contact the Clinical Chemistry Laboratory if there are any qu estions. Chloride 108 (H) 98 - 107 mmol/L [facility] CO2 18 (L) 22 - 31 mmol/L [facility] Anion Gap 13 5 - 15 mmol/L [facility] Calcium 9.0 8.5 - 10.5 mg/dL [facility] Total Protein 7.6 6.1 - 8.0 g/dL [facility] Albumin 4.1 3.2 - 5.2 g/dL [facility] AST 51 (H) 0 - 39 unit/L [facility] ALT 54 0 - 55 unit/L [facility] Alk Phos 112 40 - 130 unit/L [facility] Total Bilirubin <0.2 (L) 0.2 - 1.3 mg/dL [facility] Estimated GFR 66 >=60 mL/min/1.73 m?? [facility] Comment: [...] Location / / Volume Laterality Blood 09/27/2021 10:36 09/27/2021 AM EST 10:46 AM EST Resulting Agency Comment Spec In Lab Parviz Modi MD CHEMISTRY ORDERABLES Performing Organization Address City/[facility]/[place] [address] CMV Antibody, IgM (09/27/2021 10:36 AM EST) P athologist Signature CMV IgM Negative Negative [facility] Specimen Anatomical Collection Method Collection Time Receive d Time (Source) Location / / Volume Laterality Blood 09/27/2021 10:36 09/27/2021 1:23 AM EST PM EST Resulting Agency Comment Spec In Lab Parviz Modi MD IMMUNOLOGY ORDERABLES Performing Organization Address City/State/[place] [address] CMV Antibody, IgG (09/27/2021 10:36 AM EST) P athologist Signature CMV IgG Negative Negative [facility] Specimen Anatomical Collection Method Collection Time Receive d Time (Source) Location / / Volume Laterality Blood 09/27/2021 10:36 09/27/2021 1:23 AM EST PM EST Resulting Agency Comment Spec In Lab Parviz Modi MD IMMUNOLOGY ORDERABLES Performing Organization Address City/[facility]/[place] [address] BME Pretransplant Specimens (09/27/2021 10:36 AM EST) Patholo gist Method Time Signature BME TP Spec Spec received [facility] Specimen Anatomical Collection Method Collection Time Receive d Time (Source) Location / / Volume Laterality Blood 09/27/2021 10:36 09/27/2021 AM EST 11:46 AM EST Resulting Agency Comment Spec In Lab Parviz Modi MD HEMATOLOGY ORDERABLES Performing Organization Address City/[facility] [place] [address] documented in this encounter Visit Diagnoses Diagnosis Stem cell transplant candidate - Primary Chronic atrial fibrillation Atrial fibrillation Stem cell transplant candidate Stem cell transplant candidate Stem cell transplant candidate documented in this encounter Additional Health Concerns Infection Onset Date Last Indicated Resolved Time History of C. difficileComment: C. diffiicile 08/20/2021 testing positive 05/25/21. documented as of this encounter Care Teams Pattern Puncher Relationship Specialty Start Date End Date Beatriz Maurice PA PCP - General Family Medicine 05/06/21 [address] [place] [address] documented as of this encounter
--- OUTSIDE RECORDS SUMMARY | 2022-02-14 11:15 | XMS_ITS | Encounter Summary ---
:1960 Author Organization [place] [address] Care Team Providers Name Role Phone Beatriz Maurice Primary Care Provider Reason for Visit Reason Onset Date Comments Other 09/26/2021 Phone PSA for SCT Encounter Details Date Type Department Care Team Description 09/26/2021 Telephone Hematology and Nichelle Barnard, Other ( Phone PSA for Oncology at [facility] [place]) [place] [address] Social History Tobacco Use Types Packs/Day [...] Telephone Encounter - Nichelle Barnard MSW - 09/26/2021 11:09 AM EST Office of Care Management - Blood and Marrow Transplant Program Psychosocial Assessment JENNIFER Healy, [facility] [phone] 1. PRESENTING ISSUES Present at interview: Also with ongoing d/w BMT team and review of medical record. Pt description/presenting problems(s)/pertinent history/SCT plan: 61 y.o., male, Problem list/Initial dx date: Patient Active Problem List Diagnosis Code ??? Acute leukemia C95.00 ??? Clostridium difficile colitis A04.72 ??? 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 AML (acute myeloblastic leukemia) C92.00 ??? Paroxysmal atrial fibrillation I48.0 ??? GERD (gastroesophageal reflux disease) K21.9 ??? BPH (benign prostatic hyperplasia) N40.0 YES NO Mental Health/Behavior Hx/barriers: ___ _X__ Denies hx of mental health bx. Denies family hx thereof. Denies SI/HI. Dental care/coverage barriers: ___ _X__ He has insurance. The SCT Team had him see a dentist during the two weeks that he was home between long inpatient stays at [facility]. Barriers to understanding SCT/recovery process ___ _X__ He has a good basic understanding of Allogeneic transplant. He read through the booklet he was provided. Comments/concerns: None 2. FAMILY CONSTELLATION/SUPPORT SYSTEM/LIVING SPACE YES NO Musical Performer/support barriers: ___ _X__ Marital Status: () () single () () () His girlfriend Morales lives with him. Primary Support(s): () spouse () s/o (X) caregiver () other family () other () NONE They also have abuddy named Colbymarty Lopez who is a big support for him. Colby is his DPOAH. Children: No Parents: His mother Mary (79) is still living and lives about an hour away. He has a good relationship with her. His father is . Siblings: He had a half-sister who . Pets in the home: 2 indoor cats that are Chai's. Other: None Lives with: Pre-SCT: Dennis, and her mother Jimena Orlando Post-SCT: Same CIRCUIT DESIGN ENGINEER PLAN IDENTIFIED _X__ ___ (Transportation, medication management, food preparation, home cleaning, etc.): Chai is comfortableproviding all of these supports. Thursday is the best day for appointments for Chai. Friends can drive Herber to [facility] the other days if necessary. BARRIERS: Comments/concerns YES NO Living Space/Environmental Barriers: ___ _X__ Barriers: Inaccessible bathroom (No. It's accessible on both floors.) Isolated road to home (No. They are right on [address] in [place], [place]. Their mail goes to [place], [place].) Many stairs/steps (3 steps to get indoors. It's mainly one floor. Downstairs is a cellar plus laundry room. ) Mold/mildew/other contaminants (None) Unavailable running or hot water (No. Both hot and cold are available.) Other () Heating source () oil (X) gas/propane () wood/pellet () electric () other: Comments/concerns: None 3. ADVANCE CARE PLANNING YES NO Advance Directives Completed: _X__ ___ On file: _X__ ___ Requested copy for EMR: ___ _X__ Primary advocate/supervisor contact lens(s): DPOAH is Colby Lopez. Morales Orlando Herber's S/O is his Alternate DPOAH. Comments/concerns: None 4. FINANCIAL/EMPLOYMENT/FOOD SECURITY FINANCIAL YES NO Financial/income barriers: ___ _X__ On Disability: _X__ ___ Type: ( ) SSDI () SSI () pending a/o: (X) employer: (X) S-T () L-T () [place] How long: S/T disability for about 8-9 weeks. It may be turning into terminal carman mid-October. He is looking into this. Comments/Concerns: None EMPLOYMENT YES NO Employment barriers: _X__ ___ Pt occupation: () F-T () P-T () seasonal () retired (X) disabled () unemployed () sick leave () other Last worked: Apr 2021. 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 Caregiver occupation/status: () F-T (X) P-T () seasonal () retired () disabled () unemployed () FMLA() other Chai works at [employer] a [employer] in [facility]. Herber believes she will be able to take time off during his transplant and recovery. Difficulty paying monthly bills: YES NO _X__ _X__ Not yet, but if Morales misses a significant amount of work it might be difficult. Comments/concerns: POWER SYSTEM OPERATOR encouraged Herber to set up a formal plan with Morales, his mother, her mother, and friends to make sure someone is with him post- transplant. POWER SYSTEM OPERATOR suggested he talk with Annika Geller RN about how many weeks it will be necessary for someone to be staying at home with him. FOOD SECURITY 1. Within the past 12 months we worried whether our food would run out before we got money to buy more. often true sometimes true __X___ never true Don't know/refused 2. Within the past 12 months the food we bought just didn't last and we didn't have money to get more. often true sometimes true __X___ never true Don't know/refused Comments/Concerns: None. POWER SYSTEM OPERATOR let him know that the [facility] Food Pantry is available. 5. INSURANCE YES NO Medical/Dental/Rx insurance barriers: ___ _X__ PRIMARY: (X) private-type: () Medicare (from disability: () Y () N) () Medicaid () [place] () other () NSA () NONE How paid for: (X) Employer () spouse (X) self/OOP () detention () COBRA () other: UMR through his employer. [facility] In-Network: _X__ ___ SECONDARY/OTHER: () private-type: () Medicare () Medicare Supplement-type: () Medicaid () [place] () other () NSA (X) NONE How paid for: () Employer () spouse () self/OOP () detention () COBRA () other COBRA: Start/end date: ___ _X__ Dental coverage _X__ ___ Service-branch: ___ _X__ [place] benefits: ___ _X__ He does not know what his annual deductible and maximum OOP are. POWER SYSTEM OPERATOR recommended he call his insurance company and find out. He hasn't received any bills from the last 4-5 months of his inpatient staysand outpatient treatment at [facility]. When he goes back to work he has to pay the premium arrears from when he has been out of work. JENNIFER offered to apply for [facility] $10,000 Co-pay Assistance for AML. He is currently receiving $578.40/week S/T disability ($2,313/month). Morales is earning $275/week ($1,100/month). PRESCRIPTIONS Rx coverage plan: _X__ ___ Program: (X) same as insurance () Medicare D: Program info: () [place] () other () NONE Co-pays/limits/Cap amount concerns: Not at the moment. If in Medicare Part D Plan, pt's coverage in relation to the [facility]: N/A Pharmacy Information: [facility] in [place], [place]. He has [facility] for mail order Rx. Comments/concerns: None 6. ADDITIONAL FINANCIAL ASSISTANCE PROGRAMS: () NSA: () active: () pending: () application discussed/provided () [place] [employer] Chronic Disease Unified () active () information provided (X) [employer] () active () application initiated () Leukemia & Lymphoma Society Co-Pay: () active () application initiated () Lymphoma Research Foundation () active () information provided () Social Security Disability/SSI: () active: a/o:() information provided () other: Comments/concerns: JENNIFER got [facility] $350 grocery card and [facility] $600 for car insurance in Jul 2021 and Aug 2021 respectively. In Jul 2021 POWER SYSTEM OPERATOR mailed him a $500 [employer] grocery card ([employer]) &$20 gas card. On 08/08/21 Emerita Pennington, POWER SYSTEM OPERATOR, covering for this jingle writer, and Denise Perales paid $6,609.05 ([employer]) for 7 day supply of Xospata so he could be discharged home for the holiday. 09/26/21 JENNIFER will apply Herber for [facility] $10,000 Co-pay Assistance citlali for AML. This will particularly help with insurance premium arrears that he will have to pay when he goes back to work. 7. COPING PROCESSES YES NO Identified coping barriers: ___ _X__ Chai, friends, family have really helped him. The nurses at [facility] were very good to him and he would like to thank them. Coping strengths/weakness, literacy, intimacy/sexuality: High school. 8. SUBSTANCE USE/HISTORY: YES NO Identified substance abuse stressors: ___ _X__ Tobacco (smoking/chew) ___ _X__ ETOH ___ _X__ He drank back in the -- typical young freddie -- but not now. Marijuana/Other ___ _X__ Cessation programs offered: ___ _X__ Comments/concerns: None 9. SPIRITUAL/NICOLE-HINDU/CULTURAL PREFERENCES: He is Mandaeism but non- practicing. He declines visit from [facility] qa software tester and blessing of the stem cells. 10. ASSESSMENT/PLAN: F/U as needed. Apply for [facility] Copay Assistance Program $10,000 for AML. 11: OVERALL TRANSPLANT CANDIDATE RISK ASSESSMENT (BASED ON ASSESSMENT AND REVIEW OF PACT TOOL): Herberis an excellent candidate. He lives with his S/O Morales and her mother. Morales is an excellent supportand will be his primary caregiver post- transplant. His elder Colby Lopez is his DPOAH and is also a strong support. Herber thinks Chai will be able to take time off during his transplant and recovery. POWER SYSTEM OPERATOR encouraged Herber to come up with a formal plan of who will be taking care of him when, and to ask Annika Geller, [facility] Nurse Navigator, how long he will need someone staying at home with him. Herber has good insurance through work but does not know his annual deductible or OOP maximum. POWER SYSTEM OPERATOR encouraged him to call his insurance company and find this out. POWER SYSTEM OPERATOR told him that S $10,000 Co-pay Assistance Program for AML is open right now and offered to apply for him. This will particularly help him pay insurance premium arrears when he gets back to work. Herber has no mental health or substance use issues andhas a healthy home environment to return to post-transplant. He has derived strength and help copingfrom the support of Chai, friends, and family. The nurses at [facility] were also very good to him and hewould like to thank them. I have no concerns about his going to transplant. PSA edit 02/2021 documented in this encounter Plan of Treatment Upcoming Encounters Date Type Specialty Care Team Description 02/18/2022 Infusion Hematology and Oncology 02/21/2022 Infusion Hematology and Oncology 02/24/2022 Appointment Hematology and Oncology 02/24/2022 Office Visit Hematology and Oncology Parviz Modi MD [facility] DR HEMATOLOGY/[place] [address] Miroslava Pelayo APRN [facility] DR HEMATOLOGY/[place] [address] 02/24/2022 Office Visit Wound Care 02/24/2022 Appointment Hematology and Oncology 02/26/2022 Office Visit Neurology Leni Bustamante MD [facility] DR NEUROLOGY DEPT. [place], [place] [address] (Wo rk) documented as of this encounter Visit Diagnoses Not on filedocumented in this encounter Additional Health Concerns Infection Onset Date Last Indicated Resolved Time History of C. difficileComment: C. diffiicile 08/20/2021 testing positive 05/25/21. documented as of this encounter Care Teams Title I Director Relationship Specialty Start Date End Date Beatriz Maurice PA PCP - General Family Medicine 05/06/21 [address] [place] [address] documented as of this encounter
--- OUTSIDE RECORDS SUMMARY | 2022-02-14 11:15 | XMS_ITS | Encounter Summary ---
:1960 Author Organization [facility] Address [place] [address] Care Team Providers Name Role Phone Beatriz Maurice Primary Care Provider Reason for Visit Reason Comments Medication Refill Encounter Details Date Type Department Care Team Description 09/26/2021 Refill Hematology and Oncology at [facility] Parviz macedo MD [facility] Catie narvaez HEMATOLOGY/[place] [address] [place] [address] [phone] (Wo rk) Social History Tobacco Use Types [...] MD [facility] DR HEMATOLOGY/[place] [address] Miroslava Pelayo APRN [facility] HEMATOLOGY/[place] [address] 02/24/2022 Office Visit Wound Care 02/24/2022 Appointment Hematology and Oncology 02/26/2022 Office Visit Neurology Leni Bustamante MD [facility] NEUROLOGY DEPT. [place], [place] [address] (Wo rk) documented as of [...] documented as of this encounter Care Teams Taxonomist Relationship Specialty Start Date End Date Beatriz Maurice PA PCP - General Family Medicine 05/06/21 [address] [place] [address] documented as of this encounter
--- OUTSIDE RECORDS SUMMARY | 2022-02-14 11:15 | XMS_ITS | Encounter Summary ---
:1960 Author Organization [facility] [place] [address] Care Team Providers Name Role Phone Beatriz Maurice Primary Care Provider Encounter Details Date Type Department Care Team Description 09/27/2021 Hospital Encounter Hematology and Stem ce ll transplant candidate; Oncology at [facility] Acute leukemia [place] [address] Social History Tobacco Use Types Packs/Day [...] Dispense 2 boxes ( 20 each 022 10/) of [employer] Barrier rings #[id number] per month. Ostomy Supplies Powder Dispense 1 bottle of 28.3 g 5 11/2021 Adapt stoma powder #7906 every other month. Ostomy Supplies Misc Dispense 2 boxes 20 each 11 01/04/202 2 (10/box) of Sensura Flako Soft Convex One-piece Pouch #[id number] per month. Ostomy Supplies [facility] Dispense 2 boxes 40 each 2 (20/box) of Brava Elastic Barrier strips #[id number] per month. Ostomy Supplies [facility] Dispense 1 box [...] 1 Sensura 1 each 08/2012/13/2021 Belt Medium) [facility] Belt #[id number] per month. loperamide (Imodium A-D) [...] three times a 800-160 mg Tablet week. fluconazole (Diflucan) Take 2 tablets by 60 tablet 5 202109/27/2021 200 mg Tablet mouth daily for 30 days. gilteritinib (Xospata) Take 3 tablets (120 90 [...] Visit Hematology and Oncology Parviz Modi MD [facility] DR HEMATOLOGY/[place] [address] Miroslava Pelayo APRN [facility] DR HEMATOLOGY/[place] [address] 02/24/2022 Office Visit Wound Care 02/24/2022 Appointment Hematology and Oncology 02/26/2022 Office Visit Neurology Leni Bustamante MD [facility] NEUROLOGY DEPT. [place], [place] [address] (Wo rk) documented as of this encounter Procedures Procedure Name Priority Date/Time Associated Comments Diagnosis HC PARTIAL STAT 09/27/2021 12:21 Acute leukemia not Resul ts for this THROMBOPLASTIN TIME PM EST having achieved proce dure are in remission the results section. HC PROTHROMBIN TIME STAT 09/27/2021 12:21 Acute leukemia no t Results for this PM EST having achieved procedure ar e in remission the results section. URINALYSIS MICROSCOPIC Routine 09/27/2021 10:43 R esults for this EXAM AM EST procedure are i n the results section. URINALYSIS WITH REFLEX Routine 09/27/2021 10:43 Stem cell R esults for this CULTURE AM EST transplant procedure are i n candidate the results section. TYPE AND SCREEN STAT 09/27/2021 10:36 Results for this VALIDITY AM EST procedure are i n the results section. HEMOGLOBIN S STAT 09/27/2021 10:36 Stem cell Results for this AM EST transplant procedure are i n candidate the results section. HC HGB S SCREEN STAT 09/27/2021 10:36 Stem cell AM EST transplant candidate ABORH RECHECK STATUS STAT 09/27/2021 10:36 Res ults for this AM EST procedure are i n the results section. HC VENIPUNCTURE STAT 09/27/2021 10:36 Stem cell Results for this AM EST transplant procedure are i n candidate the results section. HEMOGRAM STAT 09/27/2021 10:36 Stem cell Results for this AM EST transplant procedure are i n candidate the results section. DIFFERENTIAL, AUTOMATED STAT 09/27/2021 10:36 Stem cell Results for this AM EST transplant procedure are i n candidate the results section. HC HERPES TYPE II AB, STAT 09/27/2021 10:36 Stem cell Re sults for this IGG AM EST transplant procedure are i n candidate the results section. HC EBV (VCA) AB STAT 09/27/2021 10:36 Stem cell Results for this AM EST transplant procedure are i n candidate the results section. HC CMV AB IGM STAT 09/27/2021 10:36 Stem cell Results fo r this AM EST transplant procedure are i n candidate the results section. HC TOXO AB IGM STAT 09/27/2021 10:36 Stem cell Results f or this AM EST transplant procedure are i n candidate the results section. ABO/RH TYPING STAT 09/27/2021 10:36 Stem cell Results fo r this AM EST transplant procedure are i n candidate the results section. HC TOXO AB IGG STAT 09/27/2021 10:36 Stem cell Results f or this AM EST transplant procedure are i n candidate the results section. HC CMV AB IGG STAT 09/27/2021 10:36 Stem cell Results fo r this AM EST transplant procedure are i n candidate the results section. HC CBC,PLT & AUTO DIFF STAT 09/27/2021 10:36 Stem cell AM EST transplant candidate ANTIBODY SCREEN STAT 09/27/2021 10:36 Stem cell Results for this AM EST transplant procedure are i n candidate the results section. HC ANTIBODY STAT 09/27/2021 10:36 Stem cell DETECTION,CAPTURE-R AM EST transplant candidate HC VARICELLA ZOSTER STAT 09/27/2021 10:36 Stem cell Resu lts for this ANTIBODY AM EST transplant procedure are i n candidate the results section. HC THYROID STIMULATING STAT 09/27/2021 10:36 Stem cell R esults for this HORMONE, SERUM AM EST transplant procedure are in candidate the results section. HC PROSTATE SPECIFIC STAT 09/27/2021 10:36 Stem cell Res ults for this ANTIGEN AM EST transplant procedure are i n candidate the results section. HC PHOSPHORUS, SERUM STAT 09/27/2021 10:36 Stem cell Res ults for this AM EST transplant procedure are i n candidate the results section. HC MAGNESIUM, SERUM STAT 09/27/2021 10:36 Stem cell Resu lts for this AM EST transplant procedure are i n candidate the results section. HC LACTIC DEHYDROGENASE STAT 09/27/2021 10:36 Stem cell Results for this AM EST transplant procedure are i n candidate the results section. HC IGA, SERUM STAT 09/27/2021 10:36 Stem cell Results fo r this AM EST transplant procedure are i n candidate the results section. HC FERRITIN, SERUM STAT 09/27/2021 10:36 Stem cell Resul ts for this AM EST transplant procedure are i n candidate the results section. COMPREHENSIVE METABOLIC STAT 09/27/2021 10:36 Stem cell Results for this PANEL (NON-FASTING) AM EST transplant procedur e are in candidate the results section. documented in this encounter Results Prothrombin Time (09/27/2021 12:21 PM EST) athologist Signature PT 12.2 9.4 - 12.5 [facility] LABORATORY INR 1.1 [facility] LABORATORY Comment: An INR <2.0 indicates [...] Agency Comment Spec In Lab Miroslava Pelayo [employer] HEMATOLOGY ORDERABLES Performing Organization Address City/State/ZIP Code Phon e Number [address] APTT (09/27/2021 12:21 PM EST) P athologist Signature PTT 33 25 - 37 sec [facility] LABORATORY Comment: The PTT is NOT [...] Agency Comment Spec In Lab Miroslava Pelayo [employer] HEMATOLOGY ORDERABLES Performing Organization Address City/[facility]/[place] [address] (ABNORMAL) Urinalysis Microscopic Exam (09/27/2021 10:43 AM EST) P athologist Signature RBC UA 2 0 - 3 /HPF [facility] LABORATORY WBC UA 2 0 - 3 /HPF [facility] LABORATORY Squam Epith UA 3 <=4 /HPF [facility] LABORATORY Hyaline Cast 19 (H) 0 - 2 /LPF [facility] LABORATORY Specimen Anatomical Collection Method Collection Time Receive d Time (Source) Location / / Volume Laterality Clean Catch 09/27/2021 10:43 09/27/2021 Urine AM EST 10:59 AM EST Resulting Agency Comment Spec In Lab Parviz Modi MD URINE ORDERABLES Performing Organization Address City/[facility]/[place] [address] (ABNORMAL) Urinalysis with reflex Culture (09/27/2021 10:43 AM EST) Patholo gist Method Time Signature Glucose UA Negative Negative [facility] mg/dL [facility] LABORATORY Protein UA Trace (A) Negative [facility] LAB[facility] Bilirubin UA Negative Negative [facility] mg/dL [facility] LABORATORY Comment: Clinical correlation required for positi ve Urine Bilirubin results as false positive may occur with some drugs and d rug related products. If a false positive is suspected a serum total bili estrella should be considered if clinically indicated. Urobilinogen UA Normal Normal mg/dL [facility] LABORATORY pH UA 5.5 5.0 - 8.0 [facility] LABORATORY Blood UA Negative Negative mg/dL [facility] LABOR[facility]ORY Ketones UA Negative Negative mg/dL [facility] LABOR[facility]ORY Nitrite UA Negative Negative [facility] LABORATORY Leukocytes UA Negative Negative [facility] LABORATORY Appearance UA Clear Clear [facility] LABORATORY Spec [place] UA 1.021 1.005 - 1.030 [facility] LABORATORY Color UA Yellow Yellow [facility] LABORATORY Culture Reflexed No [facility] LABORATORY Specimen Anatomical Collection Method Collection Time Receive d Time (Source) Location / / Volume Laterality Clean Catch 09/27/2021 10:43 09/27/2021 Urine AM EST 10:59 AM EST Resulting Agency Comment Spec In Lab Parviz Modi MD URINE ORDERABLES Performing Organization Address City/[facility]/ZIP Code Phon e Number [address] Type and Screen Validity (09/27/2021 10:36 AM EST) [facility] gist Method Time Signature T&S only valid [facility] LABORATORY Comment: This Type and Screen result is only valid at the [facility] Specimen Anatomical Collection Method Collection Time Receive d Time (Source) Location / / Volume Laterality Blood 09/27/2021 10:36 09/27/2021 AM EST 10:44 AM EST Resulting Agency Comment Spec In Lab Parviz Modi MD BLOOD BANK ORDERABLES Performing Organization Address City/[facility]/ZIP Code Phon e Number [address] ABORH Recheck Status (09/27/2021 10:36 AM EST) [facility] gist Method Time Signature ABORH Type Completed [facility] LABORATORY Specimen Anatomical Collection Method Collection Time Receive d Time (Source) Location / / Volume Laterality Blood 09/27/2021 10:36 09/27/2021 AM EST 10:44 AM EST Resulting Agency Comment Spec In Lab Parviz Modi MD BLOOD BANK ORDERABLES Performing Organization Address City/[facility]/ZIP Code Phon e Number [address] Antibody screen (09/27/2021 10:36 AM EST) [facility] Method Time Signature Ab Screen Negative [facility] LABORATORY Expires at 09/30/2021 [facility] [id number] on: [facility] LABORATORY Specimen Anatomical Collection Method Collection Time Receive d Time (Source) Location / / Volume Laterality Blood 09/27/2021 10:36 09/27/2021 AM EST 10:44 AM EST Resulting Agency Comment Spec In Lab Parviz Modi MD BLOOD BANK ORDERABLES Performing Organization Address City/[facility]/ZIP Code Phon e Number [address] ABO/Rh Typing (09/27/2021 10:36 AM EST) P athologist Signature ABORh Type O Pos [facility] LABORATORY Specimen Anatomical Collection Method Collection Time Receive d Time (Source) Location / / Volume Laterality Blood 09/27/2021 10:36 09/27/2021 AM EST 10:44 AM EST Resulting Agency Comment Spec In Lab Parviz Modi MD BLOOD BANK ORDERABLES Performing Organization Address City/[facility]/ZIP Code Phon e Number [address] Hemoglobin S (09/27/2021 10:36 AM EST) [facility] Method Time Signature HGB S Screen Screen Screen JIA Negative Negative [facility] LABORATORY Specimen Anatomical Collection Method Collection Time Receive d Time (Source) Location / / Volume Laterality Blood 09/27/2021 10:36 09/27/2021 AM EST 10:47 AM EST Resulting Agency Comment Spec In Lab Parviz Modi MD HEMATOLOGY ORDERABLES Performing Organization Address City/State/[place] [address] (ABNORMAL) Differential, Automated (09/27/2021 10:36 AM EST) [facility] Method Time Signature Neutrophils % 63.9 % [facility] LABORATORY Neutr Abs (ANC) 2.05 1.70 - [facility] 6.10 [facility] x10(3)/[facility] LABORATORY Lymphocytes % 21.8 % [facility] LABORATORY Lymphocytes Abs 0.7 (L) 0.9 - 3.2 [facility] x10(3)/[facility] LABORATORY Monocytes % 13.4 % [facility] LABORATORY Monocyte Abs 0.4 0.3 - 0.9 [facility] x10(3)/[facility] LABORATORY Eosinophils % 0.0 % [facility] LABORATORY Eosinophils Abs 0.0 0.0 - 0.4 [facility] x10(3)/[facility] LABORATORY Basophils % 0.0 % [facility] LABORATORY Basophils Abs 0.0 0.0 - 0.1 [facility] x10(3)/[facility] LABORATORY Immature Gran % 0.90 % [facility] LABORATORY Comment: Immature granulocytes(IG's)percentage an d absolute count will include metamyelocytes, myelocytes, and promyelo cytes. Blood smears from CBCs yielding IG's will be scanned manually for concor dance. If this scan disagrees with the automated IG or if promyelocytes are not ed, a manual differential will be performed. Zara Gran Abs 0.03 0.00 - 0.04 x10(3)/[facility] Y [facility] LABORATORY Specimen Anatomical Collection Method Collection Time Receive d Time (Source) Location / / Volume Laterality Blood 09/27/2021 10:36 09/27/2021 AM EST 10:47 AM EST Resulting Agency Comment Spec In Lab Parviz Modi MD HEMATOLOGY ORDERABLES Performing Organization Address City/State/ZIP [place] [address] (ABNORMAL) Hemogram (09/27/2021 10:36 AM EST) Patholo gist Method Time Signature WBC 3.2 (L) 4.0 - 9.5 [facility] x10(3)/[facility] LABORATORY RBC 2.65 (L) 4.58 - [facility] 5.54 [facility] x10(6)/[facility] LABORATORY Hemoglobin 9.1 (L) 13.7 - [facility] 16.5 g/dL [facility] LABORATORY Hematocrit 27.0 (L) 40.5 - [facility] 48.5 % [facility] LABORATORY MCV 101.9 (H) 82.9 - [facility] 93.[address] [facility] LABORATORY MCH 34.3 (H) 27.5 - [facility] 32.1 pg [facility] LABORATORY MCHC 33.7 32.0 - [facility] 35.7 g/dL [facility] LABORATORY Platelets 152 145 - 357 [facility] x10(3)/[facility] LABORATORY RDWSD 87.7 (H) 36.0 - [facility] 45.[address] [facility] LABORATORY RDWCV 25.4 (H) 11.4 - [facility] 13.8 % [facility] LABORATORY MPV 10.5 7.6 - 12.9 [facility] LABORATORY nRBC % Auto 0.0 % [facility] LABORATORY nRBC Abs Auto 0.000 0.000 - [facility] 0.000 [facility] x10(3)/[facility] LABORATORY Specimen Anatomical Collection Method Collection Time Receive d Time (Source) Location / / Volume Laterality Blood 09/27/2021 10:36 09/27/2021 AM EST 10:47 AM EST Resulting Agency Comment Spec In Lab Parviz Modi MD HEMATOLOGY ORDERABLES Performing Organization Address City/State/ZIP Code Phon e Number [place] [id number]OS[address] LAB[address] Varicella zoster Antibody, IgG (09/27/2021 10:36 AM EST) Analysis Performed At [facility] logist Time Signature Varicella IgG Positive Positive [facility] LABORATORY Comment: A positive result for this assay is cons idered to be an indicator of positive immune status. Specimen Anatomical Collection Method Collection Time Receive d Time (Source) Location / / Volume Laterality Blood 09/27/2021 10:36 09/27/2021 1:23 AM EST PM EST Resulting Agency Comment Spec In Lab Parviz Modi MD IMMUNOLOGY ORDERABLES Performing Organization Address City/[facility]/ZIP Code Phon e Number [address] TSH (09/27/2021 10:36 AM EST) P athologist Signature TSH 3.30 0.27 - 4.20 [facility] mcIU/mL [facility] LABORATORY Comment: Reference Interval (mcIU/mL): Females: ??First Trimester: 0.23-3.88 ??Second Trimester: 0.22-3.90 ??Third Trimester: 0.44-4.66 Specimen Anatomical Collection Method Collection Time Receive d Time (Source) Location / / Volume Laterality Blood 09/27/2021 10:36 09/27/2021 AM EST 10:46 AM EST Resulting Agency Comment Spec In Lab Parviz Modi MD CHEMISTRY ORDERABLES Performing Organization Address City/[facility]/ZIP Code Phon e Number [address] Toxoplasma Antibody, IgM (09/27/2021 10:36 AM EST) [facility] gist Method Time Signature Toxoplasma IgM Negative Negative [facility] LABORATORY Specimen Anatomical Collection Method Collection Time Receive d Time (Source) Location / / Volume Laterality Blood 09/27/2021 10:36 09/27/2021 1:23 AM EST PM EST Resulting Agency Comment Spec In Lab Parviz Modi MD CHEMISTRY ORDERABLES Performing Organization Address City/[facility]/ZIP Code Phon e Number [address] Toxoplasma Antibody, IgG (09/27/2021 10:36 AM EST) [facility] Method Time Signature Toxoplasma IgG Negative Negative [facility] LABORATORY Specimen Anatomical Collection Method Collection Time Receive d Time (Source) Location / / Volume Laterality Blood 09/27/2021 10:36 09/27/2021 1:23 AM EST PM EST Resulting Agency Comment Spec In Lab Parviz Modi MD IMMUNOLOGY ORDERABLES Performing Organization Address City/[facility]/ZIP Code Phon e Number [address] (ABNORMAL) PSA (Ultrasensitive) (09/27/2021 10:36 AM EST) Analysis Performed At Patho logist Time Signature PSA Total 4.79 (H) 0.00 - [facility] ARASELI (Ultrasensitiv 4.00 ng/mL [facility] LABORATORY Comment: PLEASE NOTE: The above reference [...] Modi MD CHEMISTRY ORDERABLES Performing Organization Address City/[facility]/[place] [address] Phosphorus (09/27/2021 10:36 AM EST) P athologist Signature Phosphorus 4.1 2.5 - 4.5 [facility] mg/dL [facility] LABORATORY Specimen Anatomical Collection Method Collection Time Receive d Time (Source) Location / / Volume Laterality Blood 09/27/2021 10:36 09/27/2021 AM EST 10:46 AM EST Resulting Agency Comment Spec In Lab Parviz Modi MD CHEMISTRY ORDERABLES Performing Organization Address City/State/[place] [address] (ABNORMAL) Magnesium (09/27/2021 10:36 AM EST) P athologist Signature Magnesium 0.67 (L) 0.69 - 1.07 [facility] mmol/L [facility] LABORATORY Specimen Anatomical Collection Method Collection Time Receive d Time (Source) Location / / Volume Laterality Blood 09/27/2021 10:36 09/27/2021 AM EST 10:46 AM EST Resulting Agency Comment Spec In Lab Parviz Modi MD CHEMISTRY ORDERABLES Performing Organization Address City/[facility]/[place] [address] (ABNORMAL) Lactate Dehydrogenase (09/27/2021 10:36 AM EST) P athologist Signature LDH 430 (H) 110 - 220 [facility] unit/L [facility] LABORATORY Specimen Anatomical Collection Method Collection Time Receive d Time (Source) Location / / Volume Laterality Blood 09/27/2021 10:36 09/27/2021 AM EST 10:46 AM EST Resulting Agency Comment Spec In Lab Parviz Modi MD CHEMISTRY ORDERABLES Performing Organization Address City/[facility]/[place] [address] IgA (09/27/2021 10:36 AM EST) P athologist Signature IgA 290 70 - 400 [facility] mg/dL [facility] LABORATORY Specimen Anatomical Collection Method Collection Time Receive d Time (Source) Location / / Volume Laterality Blood 09/27/2021 10:36 09/27/2021 AM EST 10:46 AM EST Resulting Agency Comment Spec In Lab Parviz Modi MD IMMUNOLOGY ORDERABLES Performing Organization Address City/[facility]/[place] [address] (ABNORMAL) HSV 1 and 2 IgG Antibodies (09/27/2021 10:36 AM EST) [facility] Method Time Signature HSV Type 1 Positive (A) Negative [facility] Antibody, IgG [facility] LABOR[facility] HSV Type 2 Negative Negative [facility] ARASELI Antibody, IgG [facility] LABORATORY Specimen Anatomical Collection Method Collection Time Receive d Time (Source) Location / / Volume Laterality Blood 09/27/2021 10:36 09/27/2021 1:23 AM EST PM EST Resulting Agency Comment Spec In Lab Parviz Modi MD IMMUNOLOGY ORDERABLES Performing Organization Address City/[facility]/[place] [address] (ABNORMAL) Ferritin (09/27/2021 10:36 AM EST) athologist Signature Ferritin 4,446 (H) 30 - 400 [facility] ng/mL [facility] LABORATORY Comment: Pediatric reference ranges not verified at [facility], interpret with caution. Reference ranges for females greater miguel a n 50 years of age approach values for men, i.e., 30-400 ng/mL. Specimen Anatomical Collection Method Collection Time Receive d Time (Source) Location / / Volume Laterality Blood 09/27/2021 10:36 09/27/2021 AM EST 10:46 AM EST Resulting Agency Comment Spec In Lab Parviz Modi MD CHEMISTRY ORDERABLES Performing Organization Address City/[facility]/[place] [address] (ABNORMAL) Júnior-Smith Virus Antibodies (09/27/2021 10:36 AM EST) [facility] gist Method Time Signature EBV (VCA) IgG Positive Negative JIA Antibody (A) [facility] LABORATORY EBV (VCA) IgM Negative Negative JIA Antibody [facility] LABORATORY EBNA Antibodies Positive Negative JIA (A) [facility] LABORATORY EBV Past EBV JIA Interpretation infection. [facility] LABORATORY Comment: In most populations, at least [...] Modi MD IMMUNOLOGY ORDERABLES Performing Organization Address City/[facility] [place] [address] (ABNORMAL) Comprehensive metabolic panel (non-fasting) (09/27/2021 10:36 AM EST) athologist Signature Glucose Lvl 92 65 - 199 [facility] mg/dL [facility] LABORATORY Comment: Diabetes: >=200 mg/dL plus symp toms BUN 21 (H) 10 - 20 mg/dL [facility] LABORATORY Creatinine 1.18 0.80 - 1.50 mg/dL [facility] LABORATORY Sodium 139 135 - 145 [...] Chloride 108 (H) 98 - 107 mmol/L [facility] LABORATORY CO2 18 (L) 22 - 31 mmol/L [facility] LABORATORY Anion Gap 13 5 - 15 mmol/L [facility] LABORATORY Calcium 9.0 8.5 - 10.5 mg/dL [facility] LABORATORY Total Protein 7.6 6.1 - 8.0 g/dL [facility] LABORATORY Albumin 4.1 3.2 - 5.2 g/dL [facility] LABORATORY AST 51 (H) 0 - 39 unit/L [facility] LABORATORY ALT 54 0 - 55 unit/L [facility] LABORATORY Alk Phos 112 40 - 130 unit/L [facility] LABORATORY Total Bilirubin <0.2 (L) 0.2 - 1.3 mg/dL [facility] LABORATORY Estimated GFR 66 >=60 mL/min/1.73 m?? [facility] [...] Organization Address City/State/ZIP Code Phon e Number [address] CMV Antibody, IgM (09/27/2021 10:36 AM EST) P athologist Signature CMV IgM Negative Negative [facility] LABORATORY Specimen Anatomical Collection Method Collection Time Receive d Time (Source) Location / / Volume Laterality Blood 09/27/2021 10:36 09/27/2021 1:23 AM EST PM EST Resulting Agency Comment Spec In Lab Parviz Modi MD IMMUNOLOGY ORDERABLES Performing Organization Address City/[facility]/[place] [address] CMV Antibody, IgG (09/27/2021 10:36 AM EST) P athologist Signature CMV IgG Negative Negative [facility] Specimen Anatomical Collection Method Collection Time Receive d Time (Source) Location / / Volume Laterality Blood 09/27/2021 10:36 09/27/2021 1:23 AM EST PM EST Resulting Agency Comment Spec In Lab Parviz Modi MD IMMUNOLOGY ORDERABLES Performing Organization Address City/[facility]/[place] [address] BME Pretransplant Specimens (09/27/2021 10:36 AM EST) Patholo gist Method Time Signature BME TP Spec Spec received [facility] Specimen Anatomical Collection Method Collection Time Receive d Time (Source) Location / / Volume Laterality Blood 09/27/2021 10:36 09/27/2021 AM EST 11:46 AM EST Resulting Agency Comment Spec In Lab Parviz Modi MD HEMATOLOGY ORDERABLES Performing Organization Address City/State/ZIP [place] [address] documented in this encounter Visit Diagnoses Diagnosis Stem cell transplant candidate Acute leukemia not having achieved remis sharon Acute leukemia of unspecified cell type, without mention of having achieved remission documented in this encounter Additional Health Concerns Infection Onset Date Last Indicated Resolved Time History of C. difficileComment: C. diffiicile 08/20/2021 testing positive 05/25/21. 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
--- OUTSIDE RECORDS SUMMARY | 2022-02-14 11:15 | XMS_ITS | Encounter Summary ---
:1960 Author Organization [facility] [place] [address] Care Team Providers Name Role Phone Beatriz Maurice Primary Care Provider Reason for Visit Consultation (Routine) - Canceled Specialty Diagnoses / Procedures Referred By Contact Refer red To Contact Hematology and Diagnoses Stem cell transplant candidate Parviz Modi, [facility] Onc 3k Oncology [facility] HEMATOLOGY/ONCOLOGY [place], [place] DEPT. [id number] [place] [address] Referral ID Status Reason Start Expiration Visits Visits Date Date Requested Authorized [id number] Canceled Continuity of 09/16/2021 09/16/2022 1 1 Care Encounter Details Date Type Department Care Team Description 09/17/2021 Telephone Hematology and Oncology at [address] [facility] [place] [address] [place] [address] Social History Tobacco Use Types Packs/Day [...] encounter Miscellaneous Notes Telephone Encounter - Cortney Givens, RD - 09/17/2021 10:03 AM EST [facility] BMT Pretransplant NutritionTeaching HPI: Pt is 61 yo male with AML- he is planned for allogenic SCT. 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 Pt reports his ileostomy is functioning well. We briefly discussed nutrition concerns with ileostomy. Patient Active Problem List Diagnosis Code ??? Acute leukemia C95.00 ??? Clostridium difficile colitis A04.72 ??? 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 AML (acute myeloblastic leukemia) C92.00 ??? Paroxysmal atrial fibrillation I48.0 ??? GERD (gastroesophageal reflux disease) K21.9 ??? BPH (benign prostatic hyperplasia) N40.0 Estimated body mass index is 33.49 kg/m?? as calculated from the following: Height as of 09/16/21: 177.8 cm (5' 10). Weight as of 09/16/21: 105.9 kg (233 lb 6.4 oz). Wt Readings from Last 3 Encounters: 09/16/21 105.9 kg (233 lb 6.4 oz) 09/12/21 106.6 kg (235 lb) 09/09/21 102.8 kg (226 lb 9.6 oz) Plan: Met briefly with pt before BMT to introduce myself as part of the outpatient team. We discussed food safety guidelines/precautions for the immunocompromised for when the pt is to be discharged. For patients undergoing autoBMT, we recommend following these guidelines for the first 3 months. -- Raw undercooked meat (game included), fish, shellfish, poultry, eggs, sausage, and morrissey. -- Raw tofu, unless pasteurized or aseptically packaged -- Deli meats (including salami, bologna, hot dogs, ham) unless heated until steaming -- Refrigerated smoked seafood (lox or kippered, nova-style, or smoke or fish jerky unless containedin a cooked dish) and pickled fish -- Unpasteurized milk and raw milk products, nonpasteurized cheese and unpasteurized yogurt --Blue-veined cheeses including blue, gorgonzola, Roquefort, Stilton -- Uncooked, unpasteurized soft cheeses including brie, camembert, feta, ga's -- Gambian style soft cheeses including queso dukes, and queso fresco -- Uzbek containing chili pepper or other uncooked vegetables -- Fresh salad dressings (stored in grocer's refrigerated case) containing raw egg or contraindicated cheeses -- Unwashed raw and frozen fruits and vegetables and those with visible mold; all raw sprouts -- Nuts should be roasted out of the shell. Not roasted in the shell as mold can be present. -- Unpasteurized commercial fruit and veg juices -- No nuts in shell, only nuts roasted without shells -- Water sources: Well Water, but using bottle water - Bottled water and well water: Rec following CDC guidelines re: water safety for well water and bottled water: --https://www.cdc.gov/healthywater/drinking/bottled/index.html --Options for BMT patient who wishes to use well water include filtration, distillation, boiling --https://www.cdc.gov/healthywater/drinking/eqei-yxauz-unodbkvpl/household_water _treatment.html --htt ps://www.cdc.gov/healthywater/pdf/drinking/household_water_treatment.pdf --https://www.cdc.gov/healthywater/drinking/ezmivxvs-apxyz-vzg.html#how_bwa -Well water must be boiled for 1 minutes and consumed w/in 48 hours. Level of comprehension was appears to be sound based upon pt questions and responses. Discussed likelihood of increased protein and calorie needs following Allogeneic transplant and encouraged increasing snacks and focus on nutrient dense foods and beverages to help meet nutritional Would consider MVM without Fe should PO intake become limited. Given low levels seen in BMT population, please consider checking 25OH Vitamin D at future lab draw. Educational material provided: Food Safety handout and Ileostomy Nutrition Therapy Pt is aware that s/he will be followed upon discharge and will re-evaluate at that time. I have provided the pt with my contact information should s/he have further questions in the interim. Thank you for this consult. Cortney Givens RD, CNSC, LD documented in this encounter Plan of Treatment Upcoming Encounters Date Type Specialty Care Team Description 02/18/2022 Infusion Hematology and Oncology 02/21/2022 Infusion Hematology and Oncology 02/24/2022 Appointment Hematology and Oncology 02/24/2022 Office Visit Hematology and Oncology Parviz Modi MD [facility] [address] HEMATOLOGY/[place] [address] Miroslava Pelayo APRN [facility] [address] HEMATOLOGY/[place] [address] 02/24/2022 Office Visit Wound Care 02/24/2022 Appointment Hematology and Oncology 02/26/2022 Office Visit Neurology Leni Bustamante MD [facility] [address] NEUROLOGY DEPT. [place], [place] [address] (Wo rk) documented as of this encounter Visit Diagnoses Not on filedocumented in this encounter Additional Health Concerns Infection Onset Date Last Indicated Resolved Time History of C. difficileComment: C. diffiicile 08/20/2021 testing positive 05/25/21. documented as of this encounter Care Teams Litigation Examiner Relationship Specialty Start Date End Date Beatriz Maurice PA PCP - General Family Medicine 05/06/21 [address] [place] [address] documented as of this encounter
--- OUTSIDE RECORDS SUMMARY | 2022-02-14 11:15 | XMS_ITS | Encounter Summary ---
:1960 Author Organization [facility] [place] [address] Care Team Providers Name Role Phone Beatriz Maurice Primary Care Provider Encounter Details Date Type Department Care Team Description 09/18/2021 Orders Only [facility] Catie narvaez [place]ATOLOGY[place] [address] DEPT. [phone] [place], [place] [address] (Wo rk) Social History Tobacco [...] and Oncology Parviz Modi MD [facility] [address] HEMATOLOGY/[place] [address] Miroslava Pelayo APRN [facility] HEMATOLOGY/[place]Y [place] [address] 02/24/2022 Office Visit Wound Care 02/24/2022 Appointment Hematology and Oncology 02/26/2022 Office Visit Neurology Leni Bustamante MD [facility] NEUROLOGY DEPT. [place], [place] [address] (Wo rk) documented as of this encounter Visit Diagnoses Not on filedocumented in this encounter Additional Health Concerns Infection Onset Date Last Indicated Resolved Time History of C. difficileComment: C. 08/20/2021 08/20/2021 diffiicile testing positive 05/25/21. Rule Out C. difficile 10/19/2021 10/19/2021 10/19/2021 4:07 PM EST documented as of this encounter Care Teams Pulp Roller Relationship Specialty Start Date End Date Beatriz Maurice PA PCP - General Family Medicine 05/06/21 [address] [place] [address] documented as of this encounter
--- OUTSIDE RECORDS SUMMARY | 2022-02-14 11:15 | XMS_ITS | Encounter Summary ---
:1960 Author Organization 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 [address] Social History Tobacco Use Types Packs/Day Years [...] powder #[id number] every other month. Ostomy Supplies [facility] Dispense 2 boxes 20 each 2 (10/box) of Sensura Flako Soft Convex One-piece Pouch #[id number] per month. Ostomy Supplies [facility] Dispense 2 boxes 40 each 2 (20/box) of Brava Elastic Barrier strips #[id number] per month. Ostomy Supplies [facility] Dispense 1 box 50 each [...] 1 Sensura 1 each 08/2012/13/2021 Belt Medium) [facility] Belt #4237 per month. loperamide (Imodium A-D) [...] documented as of this encounter Progress Notes ForSerenity garcia APRN - 09/27/2021 3:54 PM EST Patient Name: Herber Iverson Jr. Patient Age: 61 y.o. Birthdate: 1960 Admit date: 09/27/2021 Attending Physician: Hayley Palmer APRN ?? Intrathecal Chemotherapy Administration Procedure Note ?? Location:??IR-radiology performed LP under fluoroscopy guide ?? Time of Procedure:??1519 ?? Diagnosis:??AML Serenity Talbot APRN, Miroslava Pelayo APRN ?? Procedure:??Intrathecal chemo with LP performed under fluoroscopy guide ?? Pre-Procedure Checklist: ( X ) Patient identity confirmed. ( X ) Patient??education??regarding procedure and discharge instructions provided. ( X ) Allergy list confirmed. ( X ) CBC drawn within 3 days.??PT/PTT??drawn AM of procedure ? Platelet count >25,000 ? Coag studies within normal limits ?? Consent:??Consent previously signed and in patient's chart and is valid for one year (dated 08/26/2021). ?? Pre-medication:??Lorazepam 0.5mg oral and Zofran 8mg oral, given at least??30 minutes??prior to procedure ?? Pre-administration Safety Check:??Safety sweep performed. Patient??identity (with name, , and MRN), intended procedure, drug names/route/date/doses/volume all confirmed with patient's RN. Same items again confirmed against patient's wristband and [place] treatment plan/MAR chemo orders. ?? Sterile Condition: Sterile technique was maintained during IT chemotherapy administration. ?? Procedure:??CSF was removed by fluoroscopy radiology team and sent for requested studies.?Cytarabine 100mg ??and Hydrocortisone 50mg all combined in a volume of 6mL was administered intrathecally over the course of 6 minutes. Post intervention assessment: Patient had no complaints. ?? Estimated blood loss:??none? Follow-up:??Patient instructed??to call with??any symptoms of concern, including but not limited to the following;??headache, nausea, vomiting, focal neurological symptoms, visual symptoms, fever, chills, bleeding or drainage from LP site. ?? Instructed to wait 24 hours before resuming Lovenox injections. Instructed to lay flat until 1625 and RN in infusion informed of this time. ?? Serenity Talbot, MSN,??PHARMACY ASSISTANT Nurse Practitioner Section of Hematology [place], [place] [address]Pdjzhtl Name: documented in this encounter Plan of Treatment Upcoming Encounters Date Type Specialty Care Team Description 02/18/2022 Infusion Hematology and Oncology 02/21/2022 Infusion Hematology and Oncology 02/24/2022 Appointment Hematology and Oncology 02/24/2022 Office Visit Hematology and Oncology Parviz Modi MD [facility] DR HEMATOLOGY/[place] [address] Miroslava Pelayo APRN [facility] HEMATOLOGY/[place] [address] 02/24/2022 Office Visit Wound Care 02/24/2022 Appointment Hematology and Oncology 02/26/2022 Office Visit Neurology Leni Bustamante MD [facility] NEUROLOGY DEPT. [place], [place] [address] (Wo rk) documented as of this encounter Procedures Procedure Name Priority Date/Time Associated Comments Diagnosis NMDP DONOR SAMPLE Routine 09/27/2021 4:15 PM Resu lts for this TESTING EST procedure are i n the results section. XR FLUORO GUIDED Routine 09/27/2021 3:36 PM Stem cell Resul ts for this LUMBAR PUNCTURE FOR EST transplant procedur e are in IT CHEMOTHERAPY candidate the results Acute myeloid section. leukemia not having achieved remission HC CSF CELL CT W/ Routine 09/27/2021 3:15 PM Acute leukemia no t DIFFERENTIAL EST having achieved remission CSF CELL COUNT Routine 09/27/2021 3:15 PM Acute leukemia not R esults for this EST having achieved procedure ar e in remission the results section. CSF DESC 4 Routine 09/27/2021 3:15 PM Acute leukemia not Res ults for this EST having achieved procedure ar e in remission the results section. CSF DESC 3 Routine 09/27/2021 3:15 PM Acute leukemia not Res ults for this EST having achieved procedure ar e in remission the results section. CSF DESC 2 Routine 09/27/2021 3:15 PM Acute leukemia not Res ults for this EST having achieved procedure ar e in remission the results section. CSF DESC 1 Routine 09/27/2021 3:15 PM Acute leukemia not Res ults for this EST having achieved procedure ar e in remission the results section. LEUKEMIA LYMPHOMA Routine 09/27/2021 3:15 PM Acute leukemia no t Results for this SCREEN (FORMERLY EST having achieved procedur e are in MALIGNANT CELL remission the results SCREEN) section. HC PROTEIN, CSF Routine 09/27/2021 3:15 PM Acute leukemia not Results for this EST having achieved procedure ar e in remission the results section. HC GLUCOSE, CSF Routine 09/27/2021 3:15 PM Acute leukemia not Results for this EST having achieved procedure ar e in remission the results section. FLUID REVIEW REPORT Routine 09/27/2021 3:05 PM Re sults for this EST procedure are i n the results section. documented in this encounter Results NMDP Donor Sample Testing (09/27/2021 4:15 PM EST) Component Value Ref Test Analysis Performed At [facility] Range Method Time Signature NMDP Donor NMDP Unrelated Allogeneic Donor Sample Testing JIA Paloma LAGRANGE Select one of the following: M [facility] x Pre-collection sample (sample collected prior to HPC col lection) LABORATORY _ Day of collection sample (sample collected day of HPC nicholas ection) GRID Number: [id number] [facility] Recipient Identification Number: [id number] ABORh Testing: Anti-A= ? 0 Anti-B = ?0 Anti-D ??= ?? 0 D control = _ A1 cells = 3+ B cells = ??3+ Perform weak D testing if Rh neg Weak D = 0 Weak D control = 0 Weak D CC = 2+ Weak D Control CC = 2+ ABORh Interpretation: O negative RBC Antibody Screen Testing: Cell 1, IS = ?0 Cell 2, IS = ?0 Cell 3, IS = ? 0 Cell 1, 37C = ??0 Cell 2, 37C = ??0 Cell 3, 37C = ??0 Cell 1, AHG = 0 Cell 2, AHG = 0 Cell 3, AHG = 0 Cell 1, CC = ?2+ Cell 2, CC = ?2+ Cell 3, CC = ?2+ RBC Antibody Screen Interpretation = NEGATIVE Testing performed on: 09/27/21 ??by AD Comments: _ Specimen Anatomical Collection Method Collection Time Receive d Time (Source) Location / / Volume Laterality Blood No Charge / 09/27/2021 4:15 PM 4:15 Unknown EST PM EST Resulting Agency Comment Spec In Lab Hayley Palmer APRN BLOOD BANK ORDERABLES Performing Organization Address City/State/[place] [address] XR Fluoro Guided Lumbar Puncture For IT Chemotherapy (09/27/2021 3:36 PM EST) Anatomical Region Laterality Modality L-spine N/A Radio Fluoroscopy Specimen (Source) Anatomical Location Collection Method / Collectio n Time Received Time / Laterality Volume Impressions 09/27/2021 4:52 PM EST Successful fluoroscopic-guided lumbar puncture for delivery of intrathecal chemotherapy without immediate complicat ion. PHARMACY ASSISTANT: Yolette Solano APRN Attending: Aubrey Emerson MD was available throughout and present for orellana portions of the procedure Procedure performed by Yolette Solano APRN Thank you for letting us participate in the care of this patient. ??If you are a health care provider and have any questi ons regarding this report, please contact the number below. ??For patients who have questions please contact the health caretaker resort that requested your imaging first. ? Electronically signed by: Yolette reyes [facility] ([phone]), at 09/27/2021 4:52 PM Narrative 09/27/2021 4:52 PM EST EXAMINATION: XR FLUORO GUIDED LUMBAR PUNCTURE FOR IT CHEMOTHERAPY CLINICAL HISTORY: AML w/ history of PRESS OFFICER disease TECHNIQUE: After an extensive discussion with the patient regarding the risks and benefits of the procedure, informed written and verbal consent were obtained. With the patient positioned pr one on the fluoroscopy table, the L3-4 interspace was localized using physical landmarks and fluoroscopy. The overlying skin was then prepped and draped in a [facility] surgical fashion. A preprocedural timeout was performed per [facility] protocol. The patient's skin was anesthetized using less than 5 cc of 1% lidocaine wit hout epinephrine. A 20-gauge, 3 1/2 inch spinal needle was advanced into the suba rachnoid space, which was confirmed with return of clear cerebral spinal fluid. O pening pressure was not measured. A total of 10 cc of cerebral spinal fluid was collected and divided into four tubes. Initial fluid was blood tinged, t his cleared completely throughout collection. These tubes were sent for la boratory analysis, as per the ordering physician. After the fluid was collected , a hematology-oncology physician administered intrathecal chemotherapy. W hen the intrathecal chemotherapy administration was complete the stylet w as replaced and the spinal needle removed. There were no immediate complic ations. The patient was instructed to lie flat f or one hour following this procedure. COMPARISON: None FINDINGS: 10 cc of blood-tinged which pr ogressed to clear, cerebrospinal fluid FLUOROSCOPY TIME: 0.12 Procedure Note Yolette Solano, HEYDI - 09/27/2021For matting of this note might be different from the original. EXAMINATION: XR FLUORO GUIDED LUMBAR PUN CTURE FOR IT CHEMOTHERAPY CLINICAL HISTORY: AML w/ history of PRESS OFFICER disease TECHNIQUE: After an extensive discussion with the patient regarding the risks and benefits of the procedure, informed written and verbal consent were obtained. With the patient positioned pr one on the fluoroscopy table, the L3-4 interspace was localized using physical landmarks and fluoroscopy. The overlying skin was then prepped and draped in a [facility] surgical fashion. A preprocedural timeout was performed per [facility] protocol. The patient's skin was anesthetized using less than 5 cc of 1% lidocaine wit hout epinephrine. A 20-gauge, 3 1/2 inch spinal needle was advanced into the suba rachnoid space, which was confirmed with return of clear cerebral spinal fluid. O pening pressure was not measured. A total of 10 cc of cerebral spinal fluid was collected and divided into four tubes. Initial fluid was blood tinged, t his cleared completely throughout collection. These tubes were sent for la boratory analysis, as per the ordering physician. After the fluid was collected , a hematology-oncology physician administered intrathecal chemotherapy. W hen the intrathecal chemotherapy administration was complete the stylet w as replaced and the spinal needle removed. There were no immediate complic ations. The patient was instructed to lie flat f or one hour following this procedure. COMPARISON: None FINDINGS: 10 cc of blood-tinged which pr ogressed to clear, cerebrospinal fluid FLUOROSCOPY TIME: 0.12 IMPRESSION Successful fluoroscopic-guided lumbar pu ncture for delivery of intrathecal chemotherapy without immediate complicat ion. PHARMACY ASSISTANT: Yolette Solano APRN Attending: Aubrey Emerson MD was available throughout and present for orellana portions of the procedure Procedure performed by Yolette Solano APRN Thank you for letting us participate in the care of this patient. If you are a health care provider and have any questi ons regarding this report, please contact the number below. For patients w ho have questions please contact the health caretaker resort that requested your imaging first. Electronically signed by: Yolette reyes [facility] ([phone]), at 09/27/2021 4:52 PM Hayley Palmer APRN IMG FLUORO ORDERABLES CSF Cell Count (09/27/2021 3:15 PM EST) P athologist Signature Tube # Ct CSF 4 [facility] Nucleated CSF 4 0 - 5 /mcl [facility] Comment: If Nucleated CSF CT result [...] correlated with clinical condition. RBC CSF CT 46 /mcl [facility] Neutrophil CSF 3 % [facility] Lymphocyte CSF 95 % [facility] Macrophage CSF 2 % [facility] Tot Diff Ct CSF 200 Cells [facility] Specimen (Source) Anatomical Collection Method Collection Time Re ceived Time Location / / Volume Laterality Cerebrospinal Fluid 09/27/2021 3:15 09/27 PM EST 4:04 PM EST Resulting Agency Comment Spec In Lab Miroslava Pelayo PHARMACY ASSISTANT BODY FLUIDS AND STOOLS ORDER BRINA Performing Organization Address City/State/ZIP Code Phon e Number [address] CSF DESC 4 (09/27/2021 3:15 PM EST) Patholo gist Method Time Signature Tube Num CSF 4 [facility] #[address] [facility] Color CSF #4 Colorless Colorless [facility] Appear CSF #4 Clear Clear [facility] Tot Vol CSF #4 3.0 mL [facility] Specimen (Source) Anatomical Collection Method Collection Time Re ceived Time Location / / Volume Laterality Cerebrospinal Fluid 09/27/2021 3:15 09/27 PM EST 4:04 PM EST Resulting Agency Comment Spec In Lab Miroslava M Bell PHARMACY ASSISTANT BODY FLUIDS AND STOOLS ORDER BRINA Performing Organization Address City/State/ZIP Code Phon e Number [address] CSF DESC 3 (09/27/2021 3:15 PM EST) Patholo gist Method Time Signature Tube Num CSF 3 [facility] #[address] [facility] Color CSF #3 Colorless Colorless [facility] Appear CSF #3 Cloudy Clear [facility] Tot Vol CSF #3 4.0 mL [facility] Specimen (Source) Anatomical Collection Method Collection Time Re ceived Time Location / / Volume Laterality Cerebrospinal Fluid 09/27/2021 3:15 09/27 PM EST 4:04 PM EST Resulting Agency Comment Spec In Lab Miroslava Pelayo PHARMACY ASSISTANT BODY FLUIDS AND STOOLS ORDER BRINA Performing Organization Address City/State/ZIP Code Phon e Number [address] CSF DESC 2 (09/27/2021 3:15 PM EST) P athologist Signature Tube Num CSF 2 [facility] Color CSF #2 [place] Colorless [facility] Appear CSF #2 Cloudy Clear [facility] Tot Vol CSF #2 2.5 mL [facility] Specimen (Source) Anatomical Collection Method Collection Time Re ceived Time Location / / Volume Laterality Cerebrospinal Fluid 09/27/2021 3:15 09/27 PM EST 4:04 PM EST Resulting Agency Comment Spec In Lab Miroslava Pelayo PHARMACY ASSISTANT BODY FLUIDS AND STOOLS ORDER BRINA Performing Organization Address City/[facility]/ZIP Code Phon e Number [address] CSF DESC 1 (09/27/2021 3:15 PM EST) P athologist Signature Tube Num CSF 1 [facility] Color CSF #1 Red Colorless [facility] Appear CSF #1 Clotted Clear [facility] Tot Vol CSF #1 3.0 mL [facility] Specimen (Source) Anatomical Collection Method Collection Time Re ceived Time Location / / Volume Laterality Cerebrospinal Fluid 09/27/2021 3:15 09/27 PM EST 4:04 PM EST Resulting Agency Comment Spec In Lab Miroslava Pelayo APRN BODY FLUIDS AND STOOLS ORDER BRINA Performing Organization Address [facility]/ZIP Code Phon e Number [address] (ABNORMAL) Protein Level CSF (09/27/2021 3:15 PM EST) P athologist Signature T Protein, CSF 47 (H) 15 - 45 [facility] mg/dL [facility] Xanthochromia Neg [facility] Specimen (Source) Anatomical Collection Method Collection Time Re ceived Time Location / / Volume Laterality Cerebrospinal Fluid 09/27/2021 3:15 09/27 PM EST 4:04 PM EST Resulting Agency Comment Spec In Lab Miroslava Pelayo APRN BODY FLUIDS AND STOOLS ORDER BRINA Performing Organization Address [facility] Code Phon e Number [address] Glucose Level CSF (09/27/2021 3:15 PM EST) athologist Signature Glucose, CSF 51 mg/dL [facility] Comment: CSF at equilibrium equals appro ximately 60-80% of plasma glucose. Specimen (Source) Anatomical Collection Method Collection Time Re ceived Time Location / / Volume Laterality Cerebrospinal Fluid 09/27/2021 3:15 09/27 PM EST 4:04 PM EST Resulting Agency Comment Spec In Lab Miroslava Pelayo APRN BODY FLUIDS AND STOOLS ORDER BRINA Performing Organization Address [facility]/ZIP Code Phon e Number [address] Leukemia Lymphoma Screen Cerebrospinal Fluid (09/27/2021 3:15 PM EST) Patholo gist Method Time Signature LLS BF Type CSF [facility] Leukemia See Comment [facility] Lymphoma [facility] LABORATORY Comment: See Fluid Review Report [id number] under Hematopathology Reports. Specimen (Source) Anatomical Collection Method Collection Time Re ceived Time Location / / Volume Laterality Cerebrospinal Fluid 09/27/2021 3:15 09/27 PM EST 4:04 PM EST Resulting Agency Comment Spec In Lab Miroslava Pelayo PHARMACY ASSISTANT BODY FLUIDS AND STOOLS ORDER BRINA Performing Organization Address City/[facility]/ZIP Code Phon e Number [place] [id number] HOS[address]ITAL [address] Fluid Review Report (09/27/2021 3:05 PM EST) Component Value Ref Test Analysis Performed At [facility] gist Range Method Time Signature Fluid Review [id number] ? Location: [address] [place] [address] The signing pathologist has (i) examined the relevant preparation(s) for the [facility] specimen(s) and (ii) rendered or confirmed the diagnosis(es) . HOSPITAL LABORATORY . ? Fl uid Review DIAGNOSIS No malignant cells are seen on the cytocentrifuge preparatio n. ?_ Electronically signed by: ?Chuyita STEPHENSON, Eliseo Verified: ??09/30/2021 11:04 ??Hematopathologist Performed at: ??-[facility] Dept. of Pathology, [place], [place] DISCUSSION WBC/uL: 4 RBC/uL: 46 200 cells counted on cytocentrifuge preparation. Inflammatory cells including lymphocytes, histiocytes seen. ADDITIONAL STUDIES Not performed CLINICAL INFORMATION Specimen: ? CSF Clinical Diagnosis: ? AMl Indication for Study: ?? 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 difficileComment: C. diffiicile 08/20/2021 testing positive 05/25/21. documented as of this encounter Care Teams State Attorney Relationship Specialty Start Date End Date Beatriz Maurice PA PCP - General Family Medicine 05/06/21 [address] [place] [address] documented as of this encounter
--- OUTSIDE RECORDS SUMMARY | 2022-02-14 11:15 | XMS_ITS | Encounter Summary ---
:1960 Author Organization [facility] Address [facility] [place] [address] Care Team Providers Name Role Phone Beatriz Maurice Primary Care Provider Encounter Details Date Type Department Care Team Description 09/10/2021 Telephone Hematology and Oncology at Balbina Jimenez, HEYDI [facility] Catie narvaez HEMATOLOGY/[place] [address] DEPT. [phone] [place], [place] [address] (Wo rk) Social History Tobacco [...] this encounter Miscellaneous Notes Telephone Encounter - Balbina Kenyon APRN - 09/10/2021 10:53 AM EST Telephone call with Herber. Reviewed [id number] Telephone Script per protocol with patient. All questions and concerns addressed. he wishes to proceed with participation in the trial. he is aware consent will be signed the day of his procedure. documented in this encounter Plan of Treatment Upcoming Encounters Date Type Specialty Care Team Description 02/18/2022 Infusion Hematology and Oncology 02/21/2022 Infusion Hematology and Oncology 02/24/2022 Appointment Hematology and Oncology 02/24/2022 Office Visit Hematology and Oncology Parviz Modi MD [facility] DR HEMATOLOGY/[place] [address] Miroslava Pelayo APRN [facility] [address] HEMATOLOGY/[place] [address] 02/24/2022 Office Visit Wound Care 02/24/2022 Appointment Hematology and Oncology 02/26/2022 Office Visit Neurology Leni Bustamante MD [facility] NEUROLOGY DEPT. [place], [place] [address] (Wo rk) documented as of this encounter Visit Diagnoses Not on filedocumented in this encounter Additional Health Concerns Infection Onset Date Last Indicated Resolved Time History of C. difficileComment: C. diffiicile 08/20/2021 testing positive 05/25/21. documented as of this encounter Care Teams Brick Mason Relationship Specialty Start Date End Date Beatriz Maurice PA PCP - General Family Medicine 05/06/21 [address] [place] [address] documented as of this encounter
--- OUTSIDE RECORDS SUMMARY | 2022-02-14 11:15 | XMS_ITS | Encounter Summary ---
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 Ostomy Supp[place] [facility] [place] 2 boxes 40 each (20/box) of Brava Elastic Barrier strips #[id number] per month. Ostomy Supplies [facility] [...] 1 Sensura 1 each 08/2012/13/2021 Belt Medium) [facility] Belt #[id number] per month. loperamide [...] MD [facility] DR HEMATOLOGY/[place] [address] Miroslava Pelayo APRN [facility] DR HEMATOLOGY/[place] [address] 02/24/2022 Office Visit Wound Care 02/24/2022 Appointment Hematology and Oncology 02/26/2022 Office Visit Neurology Leni Bustamante MD [facility] DR NEUROLOGY DEPT. [place], [place] [address] (Wo rk) documented as of this encounter Procedures Procedure Name Priority Date/Time Associated Diagnosis Comme nts TYPE AND SCREEN STAT 09/16/2021 10:48 Results for this VALIDITY AM EST procedure are i n the results section. ABORH RECHECK STATUS STAT 09/16/2021 10:48 Res ults for this AM EST procedure are i n the results section. SCAN, PERIPHERAL STAT 09/16/2021 10:48 Results for this BLOOD AM EST procedure are i n the results section. HEMOGRAM STAT 09/16/2021 10:48 Acute myeloid Results fo r this AM EST leukemia not having procedur e are in achieved remissi on the results Anemia, unspecified section. 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 ce S/P partial resection of colon DIFFERENTIAL, STAT 09/16/2021 10:48 Acute myeloid Results f or this AUTOMATED AM EST leukemia not having procedur e are in achieved remissi on the results Anemia, unspecified section. 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 ce S/P partial resection of colon ABO/RH TYPING STAT 09/16/2021 10:48 Acute myeloid Results f or this AM EST leukemia not having procedur e are in achieved remissi on the results Anemia, unspecified section. 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 ce S/P partial resection of colon HC CBC,PLT & AUTO STAT 09/16/2021 10:48 Acute myeloid DIFF AM EST leukemia not having achieved remissi on Anemia, unspecified 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 ce S/P partial resection of colon ANTIBODY SCREEN STAT 09/16/2021 10:48 Acute myeloid Results for this AM EST leukemia not having procedur e are in achieved remissi on the results Anemia, unspecified section. 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 ce S/P partial resection of colon HC ANTIBODY STAT 09/16/2021 10:48 Acute myeloid DETECTION,CAPTURE-R AM EST leukemia not having achieved remissi on Anemia, unspecified 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 ce S/P partial resection of colon HC VENIPUNCTURE Routine 09/16/2021 10:48 Acute myeloid Results for this AM EST leukemia not having procedur e are in achieved remissi on the results Anemia, unspecified section. 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 ce S/P partial resection of colon documented in this encounter Results Type and Screen Validity (09/16/2021 10:48 AM EST) [facility] Method Time Signature T&S only valid [facility] LABORATORY Comment: This Type and Screen result is only valid at the [facility] Specimen Anatomical Collection Method Collection Time Receive d Time (Source) Location / / Volume Laterality Blood 09/16/2021 10:48 09/16/2021 AM EST 10:57 AM EST Resulting Agency Comment Spec In Lab Parviz Modi MD BLOOD BANK ORDERABLES Performing Organization Address City/[facility]/ZIP Code Phon e Number [address] Scan, Peripheral Blood (09/16/2021 10:48 AM EST) [facility] Signature Plat Estimate Decreased [facility] LABORATORY RBC Morphology Abnormal [facility] LABORATORY Macrocytes 1-5 /HPF [facility] LABORATORY Microcytes 1-5 /HPF [facility] LABORATORY Specimen Anatomical Collection Method Collection Time Receive d Time (Source) Location / / Volume Laterality Blood 09/16/2021 10:48 09/16/2021 AM EST 10:56 AM EST Resulting Agency Comment Spec In Lab Parviz Modi MD HEMATOLOGY ORDERABLES Performing Organization Address City/[facility]/ZIP Code Phon e Number [address] ABORH Recheck Status (09/16/2021 10:48 AM EST) [facility] Signature ABORH Type Completed [facility] LABORATORY Specimen Anatomical Collection Method Collection Time Receive d Time (Source) Location / / Volume Laterality Blood 09/16/2021 10:48 09/16/2021 AM EST 10:57 AM EST Resulting Agency Comment Spec In Lab Parviz Modi MD BLOOD BANK ORDERABLES Performing Organization Address City/[facility]/[place] [address] Antibody screen (09/16/2021 10:48 AM EST) [facility] Signature Ab Screen Negative [facility] LABORATORY Expires at 09/19/2021 [facility] [id number] on: [facility] LABORATORY Specimen Anatomical Collection Method Collection Time Receive d Time (Source) Location / / Volume Laterality Blood 09/16/2021 10:48 09/16/2021 AM EST 10:57 AM EST Resulting Agency Comment Spec In Lab Parviz Modi MD BLOOD BANK ORDERABLES Performing Organization Address City/State/ZIP Code Phon e Number [address] ABO/Rh Typing (09/16/2021 10:48 AM EST) P athologist Signature ABORh Type O Pos [facility] LABORATORY Specimen Anatomical Collection Method Collection Time Receive d Time (Source) Location / / Volume Laterality Blood 09/16/2021 10:48 09/16/2021 AM EST 10:57 AM EST Resulting Agency Comment Spec In Lab Parviz Modi MD BLOOD BANK ORDERABLES Performing Organization Address City/[facility]/[place] [address] (ABNORMAL) Differential, Automated (09/16/2021 10:48 AM EST) Patholo gist Method Time Signature Neutrophils % 58.4 % [facility] LABORATORY Neutr Abs (ANC) 1.59 (L) 1.70 - [facility] 6.10 [facility] x10(3)/[facility] LABORATORY Lymphocytes % 32.4 % [facility] LABORATORY Lymphocytes Abs 0.9 0.9 - 3.2 [facility] x10(3)/[facility] LABORATORY Monocytes % 8.1 % [facility] LABORATORY Monocyte Abs 0.2 (L) 0.3 - 0.9 [facility] x10(3)/[facility] LABORATORY Eosinophils % 0.0 % [facility] LABORATORY Eosinophils Abs 0.0 0.0 - 0.4 [facility] x10(3)/[facility] LABORATORY Basophils % 0.0 % [facility] LABORATORY Basophils Abs 0.0 0.0 - 0.1 [facility] x10(3)/[facility] LABORATORY Immature Gran % 1.10 % [facility] LABORATORY Comment: Immature granulocytes(IG's)percentage an d absolute count will include metamyelocytes, myelocytes, and promyelo cytes. Blood smears from CBCs yielding IG's will be scanned manually for concor dance. If this scan disagrees with the automated IG or if promyelocytes are not ed, a manual differential will be performed. Zara Gran Abs 0.03 0.00 - 0.04 x10(3)/[facility] MAR Y [facility] LABORATORY Specimen Anatomical Collection Method Collection Time Receive d Time (Source) Location / / Volume Laterality Blood 09/16/2021 10:48 09/16/2021 AM EST 10:56 AM EST Resulting Agency Comment Spec In Lab Parviz Modi MD HEMATOLOGY ORDERABLES Performing Organization Address City/State/ZIP [place] [address] (ABNORMAL) Hemogram (09/16/2021 10:48 AM EST) [facility] gist Method Time Signature WBC 2.7 (L) 4.0 - 9.5 [facility] x10(3)/[facility] LABORATORY RBC 2.59 (L) 4.58 - [facility] 5.54 [facility] x10(6)/[facility] LABORATORY Hemoglobin 8.6 (L) 13.7 - [facility] 16.5 g/dL [facility] LABORATORY Hematocrit 25.0 (L) 40.5 - [facility] 48.5 % [facility] LABORATORY MCV 96.5 (H) 82.9 - [facility] ARASELI 93.1 [facility] LABORATORY MCH 33.2 (H) 27.5 - [facility] ARASELI 32.1 pg [facility] LABORATORY MCHC 34.4 32.0 - [facility] 35.7 g/dL [facility] LABORATORY Platelets 117 (L) 145 - 357 [facility] x10(3)/[facility] LABORATORY RDWSD 51.1 (H) 36.0 - [facility] 45.0 [facility] LABORATORY RDWCV 23.4 (H) 11.4 - [facility] ARASELI 13.8 % [facility] LABORATORY MPV 10.7 7.6 - 12.9 [facility] LABORATORY nRBC % Auto 4.4 % [facility] LABORATORY nRBC Abs Auto 0.120 (H) 0.000 - [facility] 0.000 [facility] x10(3)/[facility] LABORATORY Specimen Anatomical Collection Method Collection Time Receive d Time (Source) Location / / Volume Laterality Blood 09/16/2021 10:48 09/16/2021 AM EST 10:56 AM EST Resulting Agency Comment Spec In Lab Parviz Modi MD HEMATOLOGY ORDERABLES Performing Organization Address City/State/ZIP [place] [address] (ABNORMAL) Comprehensive metabolic panel (non-fasting) (09/16/2021 10:48 AM EST) P athologist Signature Glucose Lvl 103 65 - 199 [facility] mg/dL [facility] LABORATORY Comment: Diabetes: >=200 mg/dL plus symp toms BUN 29 (H) 10 - 20 mg/dL [facility] LABORATORY Creatinine 1.30 0.80 - 1.50 mg/dL [facility] LABORATORY Sodium 138 135 - [...] Chloride 111 (H) 98 - 107 mmol/L [facility] LABORATORY CO2 15 (L) 22 - 31 mmol/L [facility] LABORATORY Anion Gap 12 5 - 15 mmol/L [facility] LABORATORY Calcium 9.4 8.5 - 10.5 mg/dL [facility] LABORATORY Total Protein 7.7 6.1 - 8.0 g/dL [facility] LABORATORY Albumin 4.2 3.2 - 5.2 g/dL [facility] LABORATORY AST 38 0 - 39 unit/L [facility] LABORATORY ALT 37 0 - 55 unit/L [facility] LABORATORY Alk Phos 132 (H) 40 - 130 unit/L [facility] LABORATORY Total Bilirubin 0.3 0.2 - 1.3 mg/dL [facility] LABORATORY Estimated GFR 59 (L) >=60 mL/min/1.73 m?? [facility] [...] (Source) Location / / Volume Laterality Blood 09/16/2021 10:48 09/16/2021 AM EST 10:55 AM EST Resulting Agency Comment Spec In Lab Parviz Modi MD CHEMISTRY ORDERABLES Performing Organization Address City/State/ZIP Code Phon e Number [place] [phone] HOSPITAL LAB[address]ORY [address] documented in this encounter [...] documented as of this encounter Care Teams Vapor Coater Relationship Specialty Start Date End Date Beatriz Maurice PA PCP - General Family Medicine 05/06/21 [address] [place], [place] [id number] documented as of this encounter
--- OUTSIDE RECORDS SUMMARY | 2022-02-14 11:15 | XMS_ITS | Encounter Summary ---
:1960 Author Organization [facility] Address [facility] [place] [address] Care Team Providers Name Role Phone Beatriz Maurice Primary Care Provider Encounter Details Date Type Department Care Team Description 09/16/2021 Orders Only Hematology and Parviz Modi Stem c ell transplant [place]cology [place] [facility] [place] Mars candidate [facility] ENTER [place] HEMATOLOGY/ONCOLOGY [place] DEPT. [address] [place] [address] [phone] (Wo rk) Social History Tobacco Use Types [...] Hematology and Oncology Parviz Modi MD [facility] DR HEMATOLOGY/[place] [address] Miroslava Pelayo APRN [facility] DR HEMATOLOGY/[place] [address] 02/24/2022 Office Visit Wound Care 02/24/2022 Appointment Hematology and Oncology 02/26/2022 Office Visit Neurology Leni Bustamante MD [facility] NEUROLOGY DEPT. [place], [place] [address] (Wo rk) documented as of this encounter Visit Diagnoses Diagnosis Stem cell transplant candidate documented in this encounter Additional Health Concerns Infection Onset Date Last Indicated Resolved Time History of C. difficileComment: C. diffiicile 08/20/2021 testing positive 05/25/21. documented as of this encounter Care Teams Chimney Builder Relationship Specialty Start Date End Date Beatriz Maurice PA PCP - General Family Medicine 05/06/21 [address] [place] [address] documented as of this encounter
--- OUTSIDE RECORDS SUMMARY | 2022-02-14 11:15 | XMS_ITS | Encounter Summary ---
:1960 Author Organization [facility] Address [facility] [address] [place] [address] Care Team Providers Name Role Phone Beatriz Maurice Primary Care Provider Encounter Details Date Type Department Care Team Description 09/18/2021 Orders Only Hematology and Hayley Palmer Stem ce ll transplant candidate; Oncology at [facility] PATIENT PARTNER Acute myeloid leukemia not having achiev ed remission [facility] [place] [address] HEMATOLOGY-ONCOLOG [phone] Y [place]. [place] [address] Social History Tobacco Use Types Packs/Day [...] Visit Hematology and Oncology Parviz Modi MD [facility] DR HEMATOLOGY/[place] [address] Miroslava Pelayo APRN [facility] HEMATOLOGY/[place] [address] 02/24/2022 Office Visit Wound Care 02/24/2022 Appointment Hematology and Oncology 02/26/2022 Office Visit Neurology Leni Bustamante MD [facility] DR NEUROLOGY DEPT. [place], [place] [address] (Wo rk) documented as of this encounter Results XR Fluoro Guided Lumbar Puncture For IT Chemotherapy (09/27/2021 3:36 PM EST) Anatomical Region Laterality Modality L-spine N/A Radio Fluoroscopy Specimen (Source) Anatomical Location Collection Method / Collectio n Time Received Time / Laterality Volume Impressions 09/27/2021 4:52 PM EST Successful fluoroscopic-guided lumbar puncture for delivery of intrathecal chemotherapy without immediate complicat ion. PATIENT PARTNER: Yolette Solano APRN Attending: Aubrey Emerson MD [...] who have questions please contact the health direct support professional caregiver that requested your imaging first. ? 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 A preprocedural timeout was performed per [facility] protocol. 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 A preprocedural timeout was performed per [facility] protocol. The patient's skin was anesthetized using [...] of intrathecal chemotherapy without immediate complicat ion. PATIENT PARTNER: Yolette Solano APRN Attending: Aubrey Emerson MD [...] ho have questions please contact the health direct support professional caregiver that requested your imaging first. Electronically signed by: Yolette reyes [facility] ([phone]), at 09/27/2021 4:52 PM Hayley Palmer APRN IMG FLUORO ORDERABLES documented in this encounter Visit Diagnoses Diagnosis Stem cell transplant candidate Acute myeloid leukemia not having achiev ed remission Stem cell transplant candidate Acute myeloid leukemia [...] documented as of this encounter Care Teams Adult Education Instructor Relationship Specialty Start Date End Date Beatriz Maurice PA PCP - General Family Medicine 05/06/21 [address] [place] [address] documented as of this encounter
--- OUTSIDE RECORDS SUMMARY | 2022-02-14 11:15 | XMS_ITS | Encounter Summary ---
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 [place], [place] [address] Social History Tobacco Use Types [...] [facility] DR HEMATOLOGY/[place] [address] Miroslava Pelayo APRN [facility] HEMATOLOGY/[place] [address] 02/24/2022 Office Visit Wound Care 02/24/2022 Appointment Hematology and Oncology 02/26/2022 Office Visit Neurology Leni Bustamante MD [facility] NEUROLOGY DEPT. [place], [place] [address] (Wo rk) documented as of this encounter Visit Diagnoses Diagnosis Stem cell transplant candidate Acute leukemia in remission Acute leukemia of unspecified cell type in remission documented in this encounter Additional Health Concerns Infection Onset Date Last Indicated Resolved Time History of C. difficileComment: C. 08/20/2021 08/20/2021 diffiicile testing positive 05/25/21. Rule Out C. difficile 10/19/2021 10/19/2021 10/19/2021 4:07 PM EST documented as of this encounter Care Teams Cardroom Plastic Card Grader Relationship Specialty Start Date End Date Beatriz Maurice PA PCP - General Family Medicine 05/06/21 [address] [place] [address] documented as of this encounter
--- OUTSIDE RECORDS SUMMARY | 2022-02-14 11:15 | XMS_ITS | Encounter Summary ---
:1960 Author Organization [facility] [place] [address] Care Team Providers Name Role Phone AjithBeatriz patricia Primary Care Provider Reason for Referral Consultation (Urgent) - Closed Specialty Diagnoses / Procedures Referred By Contact Refer red To Contact Gastroenterology Diagnoses Acute myeloid leukemia not having achieved remission Stem cell transplant candidate Parviz Modi [facility] Endoscopy 4t MD [facility] HEMATOLOGY/ONCOLOGY [place], [place] DEPT. [address] [place] [address] Referral ID Status Reason Start Date Expiration Date Visits V isits Requested Authorized [id number] Closed Test Only 09/16/2021 09/16/2022 1 1 Diagnostic Test (Routine) - Closed Specialty Diagnoses / Procedures Referred By Contact Refer red To Contact Radiology Diagnoses Acute myeloid leukemia not having achieved remission Stem cell transplant candidate Parviz Modi MD [facility] Interventionl Rad Procedures IR Mediport Placement [facility] HEMATOLOGY/[place] [address] [place] [address] Referral ID Status Reason Start Date Expiration Date Visits V isits Requested Authorized [id number] Closed Specialty 09/16/2021 03/16/2023 1 1 Service Requested Reason for Visit Reason Comments Follow-up Encounter Details Date Type Department Care Team Description 09/16/2021 Office Visit Hematology and Radha Modi MD [facility] DR HEMATOLOGY/[place] [address] Stem cell transplant candidate (Primary Dx); [place] [facility] [place]roslava Pelayo APRN [facility] DR HEMATOLOGY/[place] [address] Acute myeloid leukemia not having achiev ed remission [facility] [place] [id number] Social History Tobacco Use Types Packs/Day Years [...] Sign Reading Time Taken Comments Blood Pressure 125/86 09/16/2021 10:53 AM EST Pulse 71 09/16/2021 10:53 AM EST Temperature 36.3 ??C (97.3 ??F) 09/16/2021 10:53 AM EST Respiratory Rate 16 09/16/2021 10:53 AM EST Oxygen Saturation 100% 09/16/2021 10:53 AM EST Inhaled Oxygen Concentration - - Weight 105.9 kg (233 lb 6.4 oz) 09/16/2021 10:53 AM wit h shoes EST Height 177.8 cm (5' 10) 09/16/2021 10:53 AM with shoes EST Body Mass Index 33.49 09/16/2021 10:53 AM EST documented in this encounter Progress Notes Parviz Modi MD - 09/16/2021 11:30 AM EST HEMATOLOGY/BMT CONSULTATION VISIT NOTE CHIEF COMPLAINT: Herber Iverson Jr. is a 61 y.o. male originally referred by Dr. Beatriz Maurice for evaluation of leukemia. He is seen in follow-up today. Data Review (From Recent Hospital discharge summary and the EMR) Admitted to [facility] 04/29/21 for leukocytosus. Discharged 04/30/21. 04/30/21 [...] [place] [address]/10,000 ABL1 copies (135.80%.) 08/08/21 Discharged after reinduction with gilteritinib and venetoclax and initial clearance of MECHANIC DRIVER leukemia. 08/12/21 LP - FELY 08/26/21 LP [...] that he went to a clinic in [facility]. He was evaluated for a UTI that was negative. 1 week ago today he saw his PCPwho ended up gatting a CBC showing abnormal counts and he was admitted to [facility]. Other than fatigue has had no fevers, chills or drenching sweats. Has lost a few lbs - <10. Appetite has been down recently. No bleeding or bruising. Was very actived when younger - played a lot of sports into his 40's. 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 He is now at day approximately +47 (09/16/21) of venetoclax plus gilteritinib therapy (day 1 ~07/31/2021). His most recent LP was 09/09 and BM Bx 09/12 and both showed no evidence of disease. 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 Social - has a girlfriend and his [...] Z43.2 ??? AML (acute myeloblastic leukemia) C92.00 MEDICATIONS Current Outpatient Medications Medication Instructions ??? acyclovir (ZOVIRAX) 400 mg, Oral, 2 TIMES DAILY ??? Colostomy Belt (Ostomy Belt Medium) [facility] Dispense 1 Sensura Steger Belt #[id number] per month. ??? famotidine (PEPCID) 40 mg, Oral, DAILY ??? flecainide (TAMBOCOR) 50 mg, Oral, 2 TIMES DAILY ??? fluconazole (DIFLUCAN) 400 mg, Oral, DAILY ??? gilteritinib (XOSPATA) 120 mg, Oral, DAILY, Call clinic before starting medication. ??? levoFLOXacin (LEVAQUIN) 750 mg, Oral, DAILY ??? loperamide (IMODIUM A-D) 2 mg, Oral, 3 TIMES DAILY ??? metoprolol succinate XL (TOPROL-XL) 50 mg, Oral, DAILY ??? Ostomy Supplies [facility] Dispense 2 boxes ( 10/box) of Adapt Barrier rings #5417 per month. ??? Ostomy Supplies [facility] Dispense 2 boxes (10/box) of Sensura Steger Soft Convex One-piece Pouch #[id number] month. ??? Ostomy Supplies Misc Dispense 2 boxes (20/box) of Brava Elastic Barrier strips #[id number] per month. ??? Ostomy Supplies Misc Dispense [...] Other (See Comments) Artificial Sweetners-lightheadedness, dizziness ??? Metoprolol heart skips a beat PHYSICAL EXAM VITAL SIGNS: Blood pressure 125/86, pulse 71, temperature 36.3 ??C (97.3 ??F), temperature source Temporal, resp. rate 16, height 177.8 cm (5' 10), weight 105.9 kg (233 lb 6.4 oz), SpO2 100 %. GENERAL: Herber Iverson Jr. is a well ill-appearing 61 y.o. male in no acute distress. NEUROLOGICAL: Alert and oriented LABORATORY Recent Results (from the past 72 hour(s)) Comprehensive metabolic panel (non-fasting) Result Value Ref Range Glucose Lvl 103 65 - 199 mg/dL BUN 29 (H) 10 - 20 mg/dL Creatinine 1.30 0.80 - 1.50 mg/dL Sodium 138 135 - 145 mmol/L Chloride 111 (H) 98 - 107 mmol/L CO2 15 (L) 22 - 31 mmol/L Anion Gap 12 5 - 15 mmol/L Calcium 9.4 8.5 - 10.5 mg/dL Total Protein 7.7 6.1 - 8.0 g/dL Albumin 4.2 3.2 - 5.2 g/dL AST 38 0 - 39 unit/L ALT 37 0 - 55 unit/L Alk Phos 132 (H) 40 - 130 unit/L Total Bilirubin 0.3 0.2 - 1.3 mg/dL Estimated GFR 59 (L) >=60 mL/min/1.73 m?? Hemogram Result Value Ref Range WBC 2.7 (L) 4.0 - 9.5 x10(3)/mcL RBC 2.59 (L) 4.58 - 5.54 x10(6)/mcL Hemoglobin 8.6 (L) 13.7 - 16.5 g/dL Hematocrit 25.0 (L) 40.5 - 48.5 % MCV 96.5 (H) 82.9 - 93.1 fL MCH 33.2 (H) 27.5 - 32.1 pg MCHC 34.4 32.0 - 35.7 g/dL Platelets 117 (L) 145 - 357 x10(3)/mcL RDWSD 51.1 (H) 36.0 - 45.0 fL RDWCV 23.4 (H) 11.4 - 13.8 % MPV 10.7 7.6 - 12.9 fL nRBC % Auto 4.4 % nRBC Abs Auto 0.120 (H) 0.000 - 0.000 x10(3)/mcL Differential, Automated Result Value Ref Range Neutrophils % 58.4 % Neutr Abs (ANC) 1.59 (L) 1.70 - 6.10 x10(3)/mcL Lymphocytes % 32.4 % Lymphocytes Abs 0.9 0.9 - 3.2 x10(3)/mcL Monocytes % 8.1 % Monocyte Abs 0.2 (L) 0.3 - 0.9 x10(3)/mcL Eosinophils % 0.0 % Eosinophils Abs 0.0 0.0 - 0.4 x10(3)/mcL Basophils % 0.0 % Basophils Abs 0.0 0.0 - 0.1 x10(3)/mcL Immature Gran % 1.10 % Zara Gran Abs 0.03 0.00 - 0.04 x10(3)/mcL Antibody screen Result Value Ref Range Expires at 2359 on: 09/19/2021 ABORH Recheck Status Result Value Ref Range ABORH Type Recheck Completed Scan, Peripheral Blood Result Value Ref Range Plat Estimate Decreased RBC Morphology Abnormal Macrocytes 1-5 /HPF Microcytes 1-5 /HPF RADIOLOGY - None ASSESSMENT & PLANS 1. Flt3+ AML --Herber initially achieved CR with 7&3 + midostauren but subsequently relapsed. --Now s/p 7 LPs showing FELY (6 past clear). Plan is for no further IT chemo unless situation changes.--Has now reachieved marrow with <5% blasts and negative CSF --The plan is to now move ahead as rapidly as possible to allogeneic stem cell transplant. This willinclude full pretransplant evaluation for Herber beginning next week. 2. Allo HSCT --Because Herber is POS [...] results have cleared the way to move forward towardsallogeneic stem cell transplant. We then reviewed the pretransplant evaluation he will need to undergo and plans for clearing a donor for him. Finally, we discussed the tentative timing of his admission for transplant and what the transplant would entail. 5. Summary of Plans --Has achieved in FELY on current regimen. Continue venetoclax plus Xospata. --Primary allogeneic stem cell donor to go to evaluation this week. --Herber to undergo pretransplant evaluation next week. --Return for next provider visit in 2 weeks from today to review results of pretransplant evaluation, to monitor his blood counts and other parameters and to continue discussion of planning for allogeneic stem cell transplant. --Tentative plan for donor admission on October 14 and Herber's admission for transplant on October 15. --Herber to call any time if not feeling well or questions or concerns arise. TOTAL TIME OF VISIT: 50 minutes, including record review, the [id number] encounter, ordering and review of lab results, writing this note and communicating results and recommendations to the patient and his provider. Parviz Modi MD Section of Hematology [facility] documented in this encounter Plan of Treatment Upcoming Encounters Date Type Specialty Care Team Description 02/18/2022 Infusion Hematology and Oncology 02/21/2022 Infusion Hematology and Oncology 02/24/2022 Appointment Hematology and Oncology 02/24/2022 Office Visit Hematology and Oncology Parviz Modi MD [facility] DR HEMATOLOGY/[place] [address] Miroslava Pelayo APRN [facility] DR HEMATOLOGY/[place] [address] 02/24/2022 Office Visit Wound Care 02/24/2022 Appointment Hematology and Oncology 02/26/2022 Office Visit Neurology Leni Bustamante MD [facility] DR NEUROLOGY DEPT. [place], [place] [address] (Wo rk) Scheduled Referrals Name Type Priority Associated Order Schedule Diagnoses REFERRAL TO Outpatient Referral Routine Acute myeloid Ordered : COLONOSCOPY PROCEDURE leukemia not having 09/16/2021 achieved remissi on Stem cell transplant candidate documented as of this encounter Results IR Mediport Placement (10/04/2021 2:37 PM EST) Anatomical Region Laterality Modality X-Ray Angiography Specimen (Source) Anatomical Location Collection Method / Collectio n Time Received Time / Laterality Volume Narrative 10/06/2021 11:29 AM EST Interventional Radiology Procedure Note Procedure: Subcutaneous venous port impl ant Indication: Acute myeloid leukemia, dura ble shelter central venous access for chemotherapy Procedure summary: [...] by sonographic evaluation. Implantation of power-inject able, Xhalep 8 Fr Dignity Mini Profile single-lumen port [...] Diagnosis Stem cell transplant candidate - Primary Acute myeloid leukemia not having achiev ed remission Acute myeloid leukemia not having achiev ed remission Stem cell transplant candidate documented in this encounter Additional Health Concerns Infection Onset Date Last Indicated Resolved Time History of C. difficileComment: C. diffiicile 08/20/2021 testing positive 05/25/21. documented as of this encounter Care Teams Veneer Glue Spreader Relationship Specialty Start Date End Date Beatriz Maurice PA PCP - General Family Medicine 05/06/21 [address] [place] [address] documented as of this encounter
--- OUTSIDE RECORDS SUMMARY | 2022-02-14 11:15 | XMS_ITS | Encounter Summary ---
:1960 Author Organization [facility] Address [address] [place] [address] Care Team Providers Name Role Phone Beatriz Maurice Primary Care Provider Encounter Details Date Type Department Care Team Description 09/27/2021 Hospital Encounter XRay at [facility] Parviz Modi Stem cell [address] [place] [address] [facility] [place] [address] HEMATOLOGY/ONCOLOGY [phone] DEPT. [place], [place] [address] (Wo rk) Social History Tobacco [...] 11 022 /) of Adapt Barrier rings #7805 per month. Ostomy Supplies Powder Dispense 1 bottle of 28.3 g 11/2021 Adapt stoma powder #7906 every other month. Ostomy Supplies [facility] Dispense 2 boxes 20 each 2 (10/box) of Sensura Flako Soft Convex One-piece Pouch #[id number] per month. Ostomy Supplies [facility] Dispense 2 boxes 40 each (20/box) of Brava Elastic Barrier strips #[id number] per month. Ostomy Supplies [facility] Dispense 1 box 50 each [...] 1 Sensura 1 each 08/2012/13/2021 Belt Medium) [facility] Belt #4237 per month. loperamide (Imodium A-D) [...] and Oncology Parviz Modi MD [facility] DR HEMATOLOGY/[place] [address] [facility] DR HEMATOLOGY/[place] [address] 02/24/2022 Office Visit Wound Care 02/24/2022 Appointment Hematology and Oncology 02/26/2022 Office Visit Neurology Leni Bustamante MD [facility] DR NEUROLOGY DEPT. [place], [place] [address] (Wo rk) documented as of this encounter Procedures Procedure Name Priority Date/Time Associated Diagnosis Comme nts XR CHEST PA AND Routine 09/27/2021 11:14 AM Stem cell transpla nt Results for this LATERAL EST candidate procedure are i n the results section. documented in this encounter Results XR Chest PA & Lateral (Generic) (09/27/2021 [...] who have questions please contact the health managed care nurse that requested your imaging first. ? Electronically signed by: Faye Urias MD , [facility] ([phone]), at 09/27/2021 12:06 PM Narrative 09/27/2021 12:06 PM EST EXAMINATION: XR [...] 09/27/2021 EXAMINATION: XR CHEST PA AND LATERAL ([employer]) CLINICAL HISTORY: pre stem cell transpla nt [...] ho have questions please contact the health managed care nurse that requested your imaging first. Electronically signed by: Faye Urias MD , [facility] ([phone]), at 09/27/2021 12:06 PM Parviz Modi MD IMG DX ORDERABLES documented in this encounter Visit Diagnoses Diagnosis Stem cell transplant candidate documented in this encounter Additional Health Concerns Infection Onset Date Last Indicated Resolved Time History of C. difficileComment: C. diffiicile 08/20/2021 testing positive 05/25/21. documented as of this encounter Care Teams Delivery Director Relationship Specialty Start Date End Date Beatriz Maurice PA PCP - General Family Medicine 05/06/21 [address] [place] [address] documented as of this encounter
--- OUTSIDE RECORDS SUMMARY | 2022-02-14 11:15 | XMS_ITS | Encounter Summary ---
:1960 Author Organization [facility] Address [facility] [place] [address] Care Team Providers Name Role Phone Beatriz Maurice Primary Care Provider Reason for Visit Auth/Cert Specialty Diagnoses / Procedures Referred By Contact Refer red To Contact Diagnoses aml Procedures PRO DIAGNOSTIC BONE MARROW BIOPSIES & ASPIRATIONS ([facility]) BONE MARROW BIOPSY AND ASPIRATION; DIAGNOSTIC Referral ID Status Reason Start Date Expiration Date Visits Requ ested Visits Authorized [id number] 1 1 Encounter Details Date Type Department Care Team Description 09/12/2021 Surgery Outpatient Surgery Parviz Modi, ([facility]) BONE Center Latrice Perez MD MARROW BIOPSY AND [facility] ASPIRATION; DIAGNOSTIC [facility] HEMATOLOGY/ONCOLOGY [place] [address] [place] [address] [phone] (Wo rk) Social History Tobacco Use Types [...] Sign Reading Time Taken Comments Blood Pressure 115/72 09/12/2021 8:57 AM EST Pulse 76 09/12/2021 9:00 AM EST Temperature 36.2 ??C (97.2 ??F) 09/12/2021 7:13 AM EST Respiratory Rate 16 09/12/2021 8:57 AM EST Oxygen Saturation 99% 09/12/2021 9:00 AM EST Inhaled Oxygen Concentration - - Weight 106.6 kg (235 lb) 09/12/2021 7:13 AM EST Height 180.3 cm (5' 11) 09/12/2021 7:13 AM EST Body Mass Index 32.78 09/12/2021 7:13 AM EST documented in this encounter Discharge Instructions Discharge InstructionsElenita Toscano RN - 09/12/2021 7:09 AM EST OUTPATIENT SURGERY POST-OPERATIVE INSTRUCTIONS BONE MARROW BIOPSY SITE 1. You have had a bone marrow aspiration and or/biopsy, which is like having an operation with a tiny, deep incision. 2. Do Not do any strenuous work today, like housework, yard work, sports of any kind or lifting morethan 5 pounds as it may cause your bone marrow site to bleed. 3. To avoid infection, leave the clear plastic dressing on the site for three days. You may shower, bathe, or swim as you wish, provided the clear dressing remains intact, and all sides of the dressingare firmly adhered to the skin. In the unlikely event that a portion or the entire dressing should come off, you may replace it with a conventional cloth band aid. However, you will no longer be able to get the site wet until three days have passed, as a conventional band aid is not waterproof and thesite is no longer a sterile area. 4. It is not unusual for the site to leak a scant amount of blood, so do not be alarmed to see a small collection, or ???puddle?? of blood under the dressing. Wound healing will still occur. 5. If you are uncertain if there is an increase in any leaking from your bone marrow site, roll up atowel, lie down on a firm surface, place the towel directly over the puncture site to apply pressure, and rest there for one half hour. Direct, FIRM thumb pressure applied to the site for 10 minutes works well as an alternative method. Leave the dressing on. 6. Most people do not experience much discomfort after this procedure, but if you do, you should askyour physician what to take. AVOID ASPIRIN PRODUCTS as these interfere with clotting. 7. After three days, remove your dressing and leave it off, so the air can get to the site to finishthe healing process. 8. NOTIFY YOUR DOCTOR FOR: a. Redness b. Heat c. Fever d. Swelling e. Drainage f. Increased pain g. Foul odor (which may not be apparent through the dressing) If you are having problems or have any additional concerns or questions: Between 8am and 5pm - Call the Hematology Clinic at . After 5pm or on a weekend: Call the [facility] woodyard operator at and ask for the physician instrumentation tech covering for your doctor. Instructions following sedation [...] drainage occurs, please contact your M[facility] [address] ??? [place] [address] ??? [phone] ??? [email or web address] [employer] ??? [facility] ??? [facility] ??? [facility] documented in this encounter Medications at Time of Discharge Medication Sig Dispensed Refills Start Date End Date Ostomy Supplies [facility] Dispense 2 boxes ( 20 each 11 022 10/box) of Adapt Barrier rings #[id number] per month. Ostomy Supplies Dispense 1 bottle of 28.3 g 5 08/20/2021 Powder Adapt stoma powder #7906 every other month. Ostomy Supplies [facility] Dispense 2 boxes 20 each 2 (10/box) of Sensura Flako Soft Convex One-piece Pouch #[id number] per month. Ostomy Supplies [facility] Dispense 2 boxes 40 each 2 (20/box) of Brava Elastic Barrier strips #[id number] per month. Ostomy Supplies [facility] Dispense 1 box (50/box) 50 each of a generic no-sting skin barrier wipe per month. acyclovir (Zovirax) Take 1 tablet by mouth [...] (Ostomy Belt Medium) Belt #4237 per month. [facility] loperamide (Imodium Take 1 capsule by mouth [...] tablet 12 10/202011/22/2021 20 mg Tablet daily. sulfamethoxazole-trim Take 1 tablet by mouth 12 tablet 5 11/18/2021 ethoprim DS (Bactrim three times a week. DS) 800-160 mg Tablet fluconazole Take 2 tablets by mouth 60 tablet 5 08/28/2021 09/27/2021 (Diflucan) 200 mg daily for 30 days. Tablet gilteritinib Take 3 tablets (120 mg) 90 tablet 0 08/27/2021 12/13/2021 (Xospata) 40 mg by mouth daily. Call tabletIndications: clinic before starting acute myeloid medication. 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 venetoclax Take 2 tablets (200 mg) 60 tablet 12 07/31/2021 0 09/13/2021 (Venclexta) 100 mg by mouth daily. Take tabletIndications: with food and a large acute myeloid glass of water. Call leukemia clinic before starting medication. Indications: acute myeloid leukemia, a type of blood cancer documented as of this encounter Progress Notes Elenita Toscano RN - 09/12/2021 8:40 AM EST Discharge instructions reviewed with patient prior to procedure. He verbalized understanding. Date/Procedure: Meds Given Comments BMBX right Side Midazolam: 2mg Fentanyl: 25mcg Patient tolerated the procedure well Copy of instructions given to patient. Encouraged to call with questions or concerns. Also encouraged to have his girlfriend check the site when he got home. Patient ambulated to car for discharge accompanied by [facility] staff member. documented in this encounter H&P Notes Glenis Luna APRN - 09/12/2021 8:07 AM EST Images from the original note were not included. 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 Assessment Cardiovascular: Rhythm: Regular Rate: Normal Pulmonary: Breath sounds clear to auscultation ASA: 3 Severe systemic disease Mallampati: Class 2: Upper half of tonsil fossa visible H&P reviewed: Yes Relevant diagnostic studies: None Confirm NPO status: Yes, Date and Time of last intake: 09/11/21 for solid food, 09/12/21 at 0300 sip of water History of anesthetic complications: No Current medications reviewed: Yes Allergies reviewed: Yes Alcohol use: Rare Date and Time of last drink: Drug use: None Sedation Plan: moderate (conscious sedation) The sedation plan, its benefits and risks, and alternatives were discussed with the patient. The planned procedure, its benefits and risks, and alternatives were discussed with the patient. Thepatient consented to the procedure. Discharge to: Home Glenis Luna APRN Nurse Practitioner Section of Hematology/Oncology [facility] Office phone: documented in this encounter Procedure Notes Glenis Luna APRN - 09/12/2021 9:01 AM EST BONE MARROW BIOPSY AND ASPIRATION PROCEDURE NOTE Bone Marrow Biopsy & Aspiration with Conscious Sedation - Unilateral Date/Time of Procedure: 09/12/2021 Proceduralist: Glenis Luna APRN DIAGNOSIS: FT3+??AML??with positive USER SUPPORT SPECIALIST disease ?? Pre-Procedure: (x) Consent signed and on chart. (x) CBC drawn within 3 days. (x) Medications/Allergies/Problem List reviewed. (x) H & P complete Prior to start of procedure the following is verified in a TIME OUT: (x) Patient identity (x) Planned procedure (x) Safety concerns IV ACCESS: Per sedation RN PAIN INTERVENTION: Per sedation RN Sterile Condition: Chlorohexidine was used to sterilize the area. Sterile drapes were used to createa sterile field. Local Anesthesia: 1% Lidocaine 18 cc's. PROCEDURE: A bone marrow biopsy and aspiration was performed on the right posterior iliac crest. Pressure applied to site(s) for at least 20 minutes following the procedure and Tegaderm placed. Estimated Blood Loss: minimal Complications: none POST INTERVENTION CARE & PAIN ASSESSMENT: Per [facility] nurses. Follow-up: Written/Verbal instructions for site care given to patient per [facility] nurses. Follow-up with Physician as instructed. Glenis Luna APRN documented in this encounter Plan of Treatment Upcoming Encounters Date Type Specialty Care Team Description 02/18/2022 Infusion Hematology and Oncology 02/21/2022 Infusion Hematology and Oncology 02/24/2022 Appointment Hematology and Oncology 02/24/2022 Office Visit Hematology and Oncology Parviz Modi MD [facility] [address] HEMATOLOGY/[place] [address] Miroslava Pelayo APRN [facility] [address] HEMATOLOGY/[place] [address] 02/24/2022 Office Visit Wound Care 02/24/2022 Appointment Hematology and Oncology 02/26/2022 Office Visit Neurology Leni Bustamante MD [facility] [address] NEUROLOGY DEPT. [place], [place] [address] (Wo rk) documented as of this encounter Procedures Procedure Name Priority Date/Time Associated Comments Diagnosis MISC FRANCO TEST-FRANCO Routine 09/12/2021 8:50 AM Re sults for this EST procedure are i n the results section. IRON STAIN, BONE Routine 09/12/2021 8:50 AM Resul ts for this MARROW EST procedure are i n the results section. BONE MARROW PANEL Routine 09/12/2021 8:50 AM ([facility]) EST ([facility]) BONE 09/12/2021 8:26 AM aml MARROW BIOPSY AND EST ASPIRATION; DIAGNOSTIC SCAN, PERIPHERAL Routine 09/12/2021 7:41 AM Resul ts for this BLOOD EST procedure are i n the results section. HEMOGRAM Routine 09/12/2021 7:41 AM Results f or this EST procedure are i n the results section. DIFFERENTIAL, Routine 09/12/2021 7:41 AM Results for this AUTOMATED EST procedure are i n the results section. HC CBC,PLT & AUTO Routine 09/12/2021 7:41 AM DIFF EST BONE MARROW FINAL Routine 09/12/2021 7:08 AM Resu lts for this REPORT EST procedure are i n the results section. ([facility]) BONE Routine 09/12/2021 7:07 AM MARROW BIOPSY AND EST ASPIRATION; DIAGNOSTIC documented in this encounter Results [facility] Test-[place] (09/12/2021 8:50 AM EST) [facility] Method Time Signature [facility] LATRICE Test ?Result ? Flag ??Unit ??RefValue [facility] NPM1 Mutation Analysis, V HOSP ITAL ??Specimen Type ? Bone [facility] LABORATORY ??Interpretation ?SEE COM MENTS ?Bone marrow, NPM1 gene Mutation analysis: ?Positive for NPM1 mutation. The quantitative level of ?mutated NPM1 transcript is 195/10,000 ABL1 copies (1.9 5%.) ?See comments. ?Comments: NPM1 mutation is seen [...] ?incidence of relapse (Idania et al, 2006, [id number]; Millie lester ?et al, 2005, [id number]; Lary et al, 2005; [id number]). ?In NPM1-mutated AML patients, persistence of NPM1-muta charlie ?transcript, particularly at higher levels (>100-200/10 ,000 ?ABL1 copies) after at least two cycles of cytotoxic ?chemotherapy is associated with increased risk of rela pse ?and lower rate of survival (Kronke et al, 2011, [id number]; ?Octavio et al, 2013, [id number]; Saida et al, 2016, ?[id number]). Trends in the level of NPM1-mutated transcr ipt ?should be followed carefully. An increase of NPM1-muta charlie ?transcript level greater than or equal to 1 log10 betw een ?two positive samples is consistent with molecular ?relapse/molecular progression (Marquis et al, 2018, ?[id number]). The reproducibility of this assay is such [...] The quantitative assay is a RNA-based reverse ?banana expert real-time polymerase chain reaction (RT- PCR) ?which detects and quantifies the most common mutant [employer] M1 ?transcripts (A, B, D forms) which [...] its performance characteri stics ?determined by [facility] in a manner consistent with CLIA ?requirements. This test has not been cleared or approv ed by ?the U.S. Food and Drug Administration. ??Signing Pathologist ? Meron Maynard M.D. ?Test Performed by: ?[facility] ?[address] [place] [address] ?Inventory Management Specialist: Randal Aparicio M.D. Ph.D.; CLIA# [id number] Specimen Anatomical Collection Method Collection Time Receive d Time (Source) Location / / Volume Laterality Other Other / Unknown 09/12/2021 8:50 AM 2021 3:57 EST PM EST Narrative This result has an attachment that is no t available. Resulting Agency Comment Spec In Lab Parviz Modi MD CHEMISTRY ORDERABLES Performing Organization Address City/[facility]/ZIP Code Phon e Number [address] Iron Stain, Bone Marrow (09/12/2021 8:50 AM EST) [facility] Method Time Signature Iron Stain BM See Comment [facility] LABORATORY Comment: See Bone Marrow Report [id number] under Hematopathology Reports. Specimen Anatomical Collection Method Collection Time Receive d Time (Source) Location / / Volume Laterality Bone Marrow 09/12/2021 8:50 AM 2 9:09 EST AM EST Resulting Agency Comment Spec In Lab Parviz Modi MD HEMATOLOGY ORDERABLES Performing Organization Address City/[facility]/ZIP Code Phon e Number [address] Scan, Peripheral Blood (09/12/2021 7:41 AM EST) [facility] Signature Plat Estimate Decreased [facility] LABORATORY RBC Morphology Abnormal [facility] LABORATORY Macrocytes 1-5 /HPF [facility] LABORATORY Microcytes 1-5 /HPF [facility] LABORATORY Specimen Anatomical Collection Method Collection Time Receive d Time (Source) Location / / Volume Laterality Blood 09/12/2021 7:41 AM 2 9:16 EST AM EST Resulting Agency Comment Spec In Lab Parviz Modi MD HEMATOLOGY ORDERABLES Performing Organization Address City/[facility]/ZIP Code Phon e Number [address] (ABNORMAL) Differential, Automated (09/12/2021 7:41 AM EST) [facility] Signature Neutrophils % 54.6 % [facility] LABORATORY Neutr Abs (ANC) 0.99 (L) 1.70 - [facility] 6.[address] [facility] x10(3)/[facility] L LABORATORY Lymphocytes % 36.5 % [facility] LABORATORY Lymphocytes Abs 0.7 (L) 0.9 - 3.2 [facility] x10(3)/[facility] LABORATORY Monocytes % 7.2 % [facility] LABORATORY Monocyte Abs 0.1 (L) 0.3 - 0.9 [facility] x10(3)/[facility] LABORATORY Eosinophils % 0.0 % [facility] LABORATORY Eosinophils Abs 0.0 0.0 - 0.4 [facility] x10(3)/[facility] LABORATORY Basophils % 0.0 % [facility] LABORATORY Basophils Abs 0.0 0.0 - 0.1 [facility] x10(3)/[facility] LABORATORY Immature Gran % 1.70 % [...] Zara Gran Abs 0.03 0.00 - 0.04 x10(3)/[facility] LABORATORY Specimen Anatomical Collection Method Collection Time Receive d Time (Source) Location / / Volume Laterality Blood 09/12/2021 7:41 AM 9:16 EST AM EST Resulting Agency Comment Spec In Lab Parviz Modi MD HEMATOLOGY ORDERABLES Performing Organization Address City/State/ZIP [place] [address] (ABNORMAL) Hemogram (09/12/2021 7:41 AM EST) P athologist Signature WBC 1.8 4.0 - 9.5 [facility] (Critical) x10(3)/[facility] LABORATORY Comment: This result has been called to KYLE EARLY by Ced Morales on 09 12 2021 at 0930, and has been read back. RBC 2.78 (L) 4.58 - 5.54 x10(6)/[facility] LABORATORY Hemoglobin 9.0 (L) 13.7 - 16.5 g/dL [facility] LABORATORY Hematocrit 25.8 (L) 40.5 - 48.5 % [facility] LABORATORY MCV 92.8 82.9 - 93.1 [facility] LABORATORY MCH 32.4 (H) 27.5 - 32.1 pg [facility] LABORATORY MCHC 34.9 32.0 - 35.7 g/dL [facility] LABORATORY Platelets 125 (L) 145 - 357 x10(3)/[facility] LABORATORY RDWSD 49.1 (H) 36.0 - 45.0 [facility] LABORATORY RDWCV 20.6 (H) 11.4 - 13.8 % [facility] LABORATORY MPV 10.0 7.6 - 12.9 [facility] LABORATORY nRBC % Auto 5.5 % [facility] LABORATORY nRBC Abs Auto 0.100 (H) 0.000 - 0.000 x10(3)/[facility] LABORATORY Specimen Anatomical Collection Method Collection Time Receive d Time (Source) Location / / Volume Laterality Blood 09/12/2021 7:41 AM 9:16 EST AM EST Resulting Agency Comment Spec In Lab Parviz Modi MD HEMATOLOGY ORDERABLES Performing Organization Address City/State/Z[place] [address] Bone Marrow Final Report (09/12/2021 7:08 AM EST) Component Value Ref Test Analysis Performed At [facility] gist Range Method Time Signature Bone Marrow [id number] ? Location: [facility] Final [facility] The signing pathologist has (i) examined the relevant preparation(s) for the [facility] specimen(s) and (ii) rendered or confirmed the diagnosis(es) . HOSPITAL LABORATORY . ? Bone Marrow Final DIAGNOSIS BONE MARROW (PERIPHERAL SMEAR, ASPIRATE SMEAR, TOUCH PREP, C ORE BIOPSY): ?? 1. ??Normocellular marro w (~50%) showing no increase in blasts, left-shifted ?erythroid hyperplasia and dysplasia, a relative granulocyte hypoplasia, and ?atypical megakaryocytes (see discussion) ?? 2. ??Reticulin stain shows very mild patchy myelofibro sis (MF 0-1 of 3) ?? 3. ??Moderate normochromic normocytic anemia and mild pa nleukopenia. Electronically signed by: ?Colby Coyne MD Verified: ??09/13/2021 16:13 ??Hematopathologist Performed at: ??-[facility] Dept. of Pathology, [place], [place] DISCUSSION No abnormal increase in blasts is microscopically appreciate d. Quantitative PCR-based NPM1 studies for MRD evaluation have been ordered and results will be issued separately. PERIPHERAL SMEAR WBC 1.81K/uL, RBC 2.78M/uL, HGB 9.0g/dL, MCV 92.8fL, RDW 2 0.6%, PLT 125K/uL There is a moderate normochromic normocytic anemia. Anisop oikilocytosis and polychromasia are significa ntly increased, and oval macrocytes, teardrop cells, elliptocytes and microcytes are seen. The total leukocyte count is decreased due to neutropenia, lymphopenia an d monocytopenia. The neutrophils are mostly mature and without significant left-sh ift. No abnormal immature forms are identified. Remaining leukocyte morphology is gen erally unremarkable. There is a marked thrombocytopenia, but platelet morphology is unremarkable. BONE MARROW ASPIRATE Adequacy: ?Smears ?? aparticulate/hemodilute, touch p reps adequate. G:E ratio: ? 1:4.6. Erythroid: ? Many dysplastic forms, some N:C dyssy nchrony, left-shifted. Granulocyte: ?? Relative hypoplasia, left-shifted but comple te maturation. Megakaryocyte: Normal in number, some dysplastic small forms present. Lymphocyte: ?Scattered mature forms seen, no aggregates appreciated. Other: ? Normal pl asma cells, eosinophils, basophils, and mast cells. Iron stain: ?Smear aparticulate/hemodilute, iron stores unevaluable. DIFFERENTIAL 200 cell differential performed on the touch prep: Band/Seg 5.5%; Lymph 14.0%; [place] 1.0%; Eos 0%; Baso 0%; Metamyelocyte 6.5%; Myelocyte 1.5%; Promyelocyte 1.5%; Blast 0%; nRBC's 69.5%; Plasma cell 0.5% BONE MARROW BIOPSY and/or CLOT Adequacy: ?Decalcified, adequate, evaluable marrow pr esent. Cellularity: ?? Variably normocellular, avg ~50%, range 30-7 0%. Erythroid: ? Mildly increased #s, clusters of left-shift ed forms. Granulocyte: ?? Precursors numerically decreased. Megakaryocyte: Numerically decreased, normal in appearance, no clustering. Lymphocytes: ?? No abnormal aggregates identified. Bone: ?Trabecular bone normal for age. . BONE MARROW BIOPSY and/or CLOT Retic stain: ?? Mild patchy myelofibrosis (MF 0-1 of 3) IMMUNOHISTOCHEMISTRY STUDIES Block: ?A1 (Core biopsy) Fixative: ?? Formalin ANTIBODY: ?? RESULT/COMMENT CD34 ?Rare cells stain (<2%), no clustering, vasculature highlighted CD61 ?Megakaryocytes stain, small forms and cluste ring seen CD117 ? Few scattered cells and s ome erythroid precursor clusters stain MPO ? Granulocyte precursors highlighted E cadherin ??Erythroid precursors highlighted Note: The immunoperoxidase s tains reported above were developed and their performance characteristics determined by [facility]. ??They have not been cleared or approved by the U.S. Food and Drug Administration, although such approval is not required for analyte -specific reagents of this type. ??Appropriate positive and negative controls are included for each case. CLINICAL INFORMATION Specimen: ? Bone marrow aspirate and biop sy Clinical Diagnosis: ? 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 Evaluate for treatment response SPECIMEN PROCESSING A - Labeled/Fixative: Patient demographics, formalin. Quantity/Size: Single, 1.5 x 0.2 cm. Tissue Description: Hard, red needle core biopsy of bone. Sections/Processing: Blocks submitted for decalcification: 1 . Entirely submitted in 1 cassette labeled A1. ??sns Specimen (Source) Anatomical Collection Method Collection Time Re ceived Time Location / / Volume Laterality 09/12/2021 7:08 AM EST Parviz Modi MD PATHOLOGY/CYTOLOGY ORDERABLE S Performing Organization Address City/State/ZIP Code Phon e Number [place] [id number] LAB[address] documented in this encounter Visit Diagnoses Not on filedocumented in this encounter Administered Medications Inactive Administered Medications - up to 3 most recent administrations Medication Order MAR Action Action Date Dose Rate Site fentaNYL (pf) (50 mcg/mL) Given 09/12/2021 8:30 AM EST 25 mcg multi-dose injection 25-50 mcg 25-50 mcg, Intravenous, EVERY 5 MIN PRN, Starting on Kassy 09/12/21 at 0708, Until Kassy 09/12/21 at 0943, Pain, Hold for respiratory rate less than 8 breaths per minute. (maximum dose 200 mcg), Intra-Operative (Intra-Procedure), Routine midazolam (pf) (Versed) (1 mg/mL) multi-dose Given 09/12/2021 8: 35 AM EST 1 mg injection 0.5-2 mg 0.5-2 mg, Intravenous, EVERY 5 MIN PRN, Starting on Kassy 09/12/21 at 0708, Until Kassy 09/12/21 at 0943, Sleep, Anxiety, Hold for delirium/agitation. (Maximum dose 5 mg)., Intra-Operative (Intra-Procedure), Routine Given 09/12/2021 8:30 AM EST 1 mg sodium chloride 0.9% infusion New Bag 09/12/2021 7:48 AM EST 1,000 mLs 100 mL/hr 1,000 mL, at 100 mL/hr, Intravenous, CONTINUOUS, Starting on Kassy 09/12/21 at 0730, Until Kassy 09/12/21 at 0943, Day of Surgery (Day of Procedure) documented in this encounter Active and Recently Administered Medications Times are shown in EST. Continuous Medication Order 09/10/2021 09/11/2021 09/12/2021 sodium chloride 0.9% infusion (CANCELED) 0748 (New Bag - Provider: Elenita Toscano, SHARON) 1,000 mL, at 100 mL/hr, Intravenous, CON TINUOUS, Starting on Kassy 09/12/21 at 0730, Until Kassy 09/12/21 at 0943, Day of Surgery (Day of Procedure) PRN Medication Order 09/10/2021 09/11/2021 09/12/2021 fentaNYL (pf) (50 mcg/mL) multi-dose injection 25-50 mcg (CANCEL ED) 0830 (Given - Provider: Elenita Toscano, SHARON) 25-50 mcg, Intravenous, EVERY 5 MIN PRN, Starting on Kassy 09/12/21 at 0708, Until Kassy 09/12/21 at 0943, Pain, Hold for respiratory rate less than 8 breaths per minute. (maximum dose 200 mcg), Intra-Operative (Intra-Procedure), Routine midazolam (pf) (Versed) (1 mg/mL) multi-dose injection 0.5-2 mg (CANCELED) 0830 (Given - Provider: Elenita Toscano, SHARON)0835 (Given - Provider: Elenita Toscano, SHARON) 0.5-2 mg, Intravenous, EVERY 5 MIN PRN, Starting on Kassy 09/12/21 at 0708, Until Kassy 09/12/21 at 0943, Sleep, Anxiety, Hold for delirium/agitation. (Maximum dose 5 mg)., Intra-Operative (Intra-Procedure), Routine documented in this encounter Additional Health Concerns Infection Onset Date Last Indicated Resolved Time History of C. difficileComment: C. diffiicile 08/20/2021 testing positive 05/25/21. documented as of this encounter Care Teams Parking Supervisor Relationship Specialty Start Date End Date Beatriz Maurice PA PCP - General Family Medicine 05/06/21 [address] [place] [address] documented as of this encounter
--- OUTSIDE RECORDS SUMMARY | 2022-02-14 11:15 | XMS_ITS | Encounter Summary ---
:1960 Author Organization [facility] Address [address] [place] [address] Care Team Providers Name Role Phone Beatriz Maurice Primary Care Provider Encounter Details Date Type Department Care Team Description 09/13/2021 Orders Only Hematology and Oncology at [facility], Miroslava Spivey APRN [facility] Catie narvaez HEMATOLOGY/[place] [address] DEPT. [phone] [place], [place] [address] (Wo rk) Social History Tobacco [...] Visit Hematology and Oncology Parviz Modi MD [facility] DR HEMATOLOGY/[place] [address] Miroslava Pelayo APRN [facility] HEMATOLOGY/[place] [address] 02/24/2022 Office Visit Wound Care 02/24/2022 Appointment Hematology and Oncology 02/26/2022 Office Visit Neurology Leni Bustamante MD [facility] NEUROLOGY DEPT. [place], [place] [address] (Wo rk) documented as of this encounter Visit Diagnoses Not on filedocumented in this encounter Additional Health Concerns Infection Onset Date Last Indicated Resolved Time History of C. difficileComment: C. diffiicile 08/20/2021 testing positive 05/25/21. documented as of this encounter Care Teams Instructor Technical Training Relationship Specialty Start Date End Date Beatriz Maurice PA PCP - General Family Medicine 05/06/21 [address] [place] [address] documented as of this encounter
--- OUTSIDE RECORDS SUMMARY | 2022-02-14 11:15 | XMS_ITS | Encounter Summary ---
:1960 Author Organization [facility] Address [place] [place] [address] Care Team Providers Name Role Phone Beatriz Maurice Primary Care Provider Encounter Details Date Type Department Care Team Description 09/20/2021 Orders Only Hematology and [facility] Stem ce ll transplant candidate; Oncology at [facility] Acute leukemia in remission [address] [place] [address] HEMATOLOGY-ONCOLOG [phone] [place] DEPT. [place], [place] [address] Social History Tobacco Use Types [...] [facility] DR HEMATOLOGY/[place] [address] Miroslava Pelayo APRN [facility] HEMATOLOGY/[place] [address] 02/24/2022 Office Visit Wound Care 02/24/2022 Appointment Hematology and Oncology 02/26/2022 Office Visit Neurology Leni Bustamante MD [facility] NEUROLOGY DEPT. [place], [place] [address] (Wo rk) documented as of this encounter Visit Diagnoses Diagnosis Stem cell transplant candidate Acute leukemia in remission Acute leukemia of unspecified cell type in remission documented in this encounter Additional Health Concerns Infection Onset Date Last Indicated Resolved Time History of C. difficileComment: C. diffiicile 08/20/2021 testing positive 05/25/21. documented as of this encounter Care Teams Boilers Inspector Relationship Specialty Start Date End Date Beatriz Maurice PA PCP - General Family Medicine 05/06/21 [address] [place] [address] documented as of this encounter
--- OUTSIDE RECORDS SUMMARY | 2022-02-14 11:15 | XMS_ITS | Encounter Summary ---
:1960 Author Organization [facility] [place] [address] Care Team Providers Name Role Phone Beatriz Maurice Primary Care Provider Encounter Details Date Type Department Care Team Description 09/16/2021 Telephone H[place]ology [place] [facility] [place] Geller, [place] [address] Social History Tobacco Use Types Packs/Day [...] Telephone Encounter - Annika Geller RN - 09/16/2021 1:36 PM EST TCT Nurse Navigator Note: O: Herber is a 61yo man with AML who is her to meet with Dr. Modi to review most recent bone marrow biopsy. ?? Herber is now in remission and ready to proceed with his pre-transplant workup. ?? We discussed this in detail and hope to complete within the next 1-2 weeks. ?? Herber's vein access is poor and he is agreeable to having a mediport placed. ?? Herber had toxic abdias colon secondary to C-diff during his first induction chemotherapy last summer. ?? He is on a 5 year plan for colonoscopies and that will need to be performed prior to admit. ?? Herber has already received dental clearance. A: Herber verbalized understanding of the plan. P: Schedule pre transplant work up, colonoscopy, and mediport placement RTC in two weeks for follow up with Dr. Mdoi and this RN. documented in this encounter Plan of Treatment Upcoming Encounters Date Type Specialty Care Team Description 02/18/2022 Infusion Hematology and Oncology 02/21/2022 Infusion Hematology and Oncology 02/24/2022 Appointment Hematology and Oncology 02/24/2022 Office Visit Hematology and Oncology Parviz Modi MD [facility] DR HEMATOLOGY/[place] [address] Miroslava Pelayo APRN [facility] DR HEMATOLOGY/[place] [address] 02/24/2022 Office Visit Wound Care 02/24/2022 Appointment Hematology and Oncology 02/26/2022 Office Visit Neurology Leni Bustamante MD [facility] NEUROLOGY DEPT. [place], [place] [address] (Wo rk) documented as of this encounter Visit Diagnoses Not on filedocumented in this encounter Additional Health Concerns Infection Onset Date Last Indicated Resolved Time History of C. difficileComment: C. diffiicile 08/20/2021 testing positive 05/25/21. documented as of this encounter Care Teams Administrative Nursing Supervisor Relationship Specialty Start Date End Date Beatriz Maurice PA PCP - General Family Medicine 05/06/21 [address] [place] [address] documented as of this encounter
--- OUTSIDE RECORDS SUMMARY | 2022-02-14 11:15 | XMS_ITS | Encounter Summary ---
:1960 Author Organization [facility] [place] [address] Care Team Providers Name Role Phone Beatriz Maurice Primary Care Provider Reason for Visit Reason Onset Date Comments Other 09/11/2021 [employer]A Award Encounter Details Date Type Department Care Team Description 09/11/2021 Telephone Hematology and Oncology Nichelle Barnard MSW Other (REANNA Award) at [facility] [place] [address] Social History Tobacco Use Types Packs/Day [...] Telephone Encounter - Nichelle Barnard MSW - 09/11/2021 2:34 PM EST [facility] SUPERVISOR MAINTENANCE advised Herber that [employer] awarded $600 toward his [employer]. They will mail the check to the service provider in about one week. Herber was very appreciative. SW Intervention: Financial resources documented in this encounter Plan of Treatment Upcoming Encounters Date Type Specialty Care Team Description 02/18/2022 Infusion Hematology and Oncology 02/21/2022 Infusion Hematology and Oncology 02/24/2022 Appointment Hematology and Oncology 02/24/2022 Office Visit Hematology and Oncology Parviz Modi MD [facility] DR HEMATOLOGY/[place] [address] Miroslava Pelayo APRN [facility] DR HEMATOLOGY/[place] [address] 02/24/2022 Office Visit Wound Care 02/24/2022 Appointment Hematology and Oncology 02/26/2022 Office Visit Neurology Leni Bustamante MD [facility] DR NEUROLOGY DEPT. [place], [place] [address] (Wo rk) documented as of this encounter Visit Diagnoses Not on filedocumented in this encounter Additional Health Concerns Infection Onset Date Last Indicated Resolved Time History of C. difficileComment: C. diffiicile 08/20/2021 testing positive 05/25/21. documented as of this encounter Care Teams Ski Tow Operator Relationship Specialty Start Date End Date Beatriz Maurice PA PCP - General Family Medicine 05/06/21 [address] [place] [address] documented as of this encounter
--- OUTSIDE RECORDS SUMMARY | 2022-02-14 11:15 | XMS_ITS | Encounter Summary ---
:1960 Author Organization [facility] Address [facility] [place] [address] Care Team Providers Name Role Phone AjithBeatriz patricia Primary Care Provider Encounter Details Date Type Department Care Team Description 09/11/2021 Notes Only Radiology [place] [facility] [place]iah, [facility] [place] [address] [facility] [phone] RADIOLOGY [place] [address] (Wo rk) Social History Tobacco Use Types [...] on file documented as of this encounter H&P Notes Marianne Lemus MD - 09/11/2021 12:47 PM EST Images from the original note were not included. INTERVENTIONAL RADIOLOGY FOCUSED H&P and PRE-PROCEDURE NOTE: PCP: LEISA Munguia Referring Provider: No ref. provider found Planned Procedure: Fluoroscopy guided lumbar puncture Procedure Indication: IT Chemo administration Presenting Diagnosis/ Complaint: Herber Iverson Jr. is a 61 y.o. male with h/o AML with BDC MANAGER involvement. He is currently undergoing IT chemotherapy treatment. Past Medical/Surgical History: Patient Active Problem List Diagnosis Code ??? Acute leukemia C95.00 ??? Clostridium difficile colitis A04.72 ??? 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 AML (acute myeloblastic leukemia) C92.00 Past Medical History: Diagnosis Date ??? AML (acute myeloblastic leukemia) 04/2021 ??? BPH (benign prostatic hyperplasia) ??? GERD (gastroesophageal reflux disease) ??? Paroxysmal atrial fibrillation Past Surgical History: Procedure Laterality Date ??? PRO EXPLORATORY OF ABDOMEN Midline 05/26/2021 @EXPLORATORY LAPAROTOMY, WITH/WITHOUT BIOPSY(S) (WRVU 12.54) performed by Mark Hernandes MD [facility] OR ??? PRO ILEOSTOMY/JEJUNOSTOMY, NONTUBE N/A 05/28/2021 @ILEOSTOMY OR JEJUNOSTOMY, NON TUBE (WRVU 17.59) performed by Colby Walter MD at [facility] OR ??? PRO REOPEN RECENT ABD EXPLORATORY N/A 05/28/2021 @EXPLORATORY LAPAROTOMY, REOPENING OF RECENT (WRVU 17.63) performed by Colyb Walter MD at [facility] OR ??? XR FLUORO GUIDED LUMBAR PUNCTURE N/A [...] Puncture For IT Chemotherapy 08/01/2021 Yolette Solano, DIRECTOR OF VIDEO ANALYTICS [facility] RAD XRAY ??? XR FLUORO [...] Puncture For IT Chemotherapy 08/26/2021 Yolette Solano, [facility] RAD XRAY ??? XR FLUORO GUIDED LUMBAR PUNCTURE FOR IT CHEMOTHERAPY N/A 09/05/2021 XR Fluoro Guided Lumbar Puncture For IT Chemotherapy 09/05/2021 Yolette Solano, [facility] RAD XRAY ??? XR FLUORO GUIDED LUMBAR PUNCTURE FOR IT CHEMOTHERAPY N/A 09/09/2021 XR Fluoro Guided Lumbar Puncture For IT Chemotherapy 09/09/2021 Yolette Solano, [facility] RAD XRAY Medications: Current Outpatient Medications on File Prior to Visit Medication Sig Dispense Refill ??? sulfamethoxazole-trimethoprim DS (Bactrim DS) 800-160 mg [...] Misc Dispense 2 boxes (10/box) of Sensura [place] Soft Convex One-piece Pouch #[id number] month. 20 each 11 ??? Ostomy Supplies Misc Dispense 2 boxes (20/box) of Brava Elastic Barrier strips #[id number] per month. 40 each 11 ??? Ostomy Supplies Misc Dispense 1 box (50/box) of a generic no-sting skin barrier wipe per month. 50 each 11 ??? enoxaparin (Lovenox) 100 mg/mL Syringe Inject 1 mL subcutaneously daily for 30 days. 30 mL 2 ??? loperamide (Imodium A-D) 2 mg Capsule Take 1 capsule by mouth 3 times daily. 90 tablet 0 ??? gabapentin (Neurontin) 300 mg Capsule Take 1 capsule by mouth 2 times daily. (Patient not taking: Reported on 09/05/2021) 90 capsule 0 ??? tamsulosin (Flomax) 0.4 mg Capsule Take 1 capsule by mouth daily. 90 tablet 0 ??? venetoclax (Venclexta) 100 mg tablet Take 2 tablets (200 mg) by mouth daily. Take with food and a large glass of water. Call clinic before starting medication. Indications: acute myeloid leukemia, a type of blood cancer (Patient taking differently: Take 100 mg by mouth daily. Take with food and a large glass of water. Call clinic before starting medication. Indications: acute myeloid leukemia, a type of blood cancer) 60 tablet 12 ??? flecainide (TAMBOCOR) 50 mg Tablet Take 1 tablet by mouth 2 times daily. 60 tablet 3 ??? famotidine (Pepcid) 20 mg Tablet Take 2 tablets by mouth daily. 30 tablet 12 No current facility-administered medications on file prior to visit. Allergies: Other [unclassified drug] and Metoprolol Social History and Habits: Social History Socioeconomic History ??? Marital status: Spouse name: Not on file ??? Number of children: Not on file ??? Years of education: Not on file ??? Highest education level: Not on file Occupational History ??? Not on file Tobacco Use ??? Smoking status: Never Smoker ??? Smokeless tobacco: Never Used Vaping Use ??? Vaping Use: Never used Substance and Sexual Activity ??? Alcohol use: Not Currently Comment: 5 drinks/year ??? Drug use: Never ??? Sexual activity: Not on file Other Topics Concern ??? 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 Lung Cancer Father Pertinent ROS: as per HPI Labs: Lab Results Component Value Date WBC 1.6 (CRIT) 09/09/2021 ANC 0.45 (CRIT) 08/07/2021 HCT 26.6 (L) 09/09/2021 PLATELET 129 (L) 09/09/2021 PLATELET 129 (L) 09/09/2021 INR 1.0 09/09/2021 BUN 33 (H) 09/09/2021 CREATININE 1.46 09/09/2021 ALKPHOS 138 (H) 09/09/2021 AST 42 (H) 09/09/2021 ALBUMIN 4.2 09/09/2021 BILIDIR 0.1 08/08/2021 BILITOT 0.3 09/09/2021 ALT 41 09/09/2021 PROT 8.1 (H) 09/09/2021 K 4.5 09/09/2021 Imaging: Physical Exam: Pending (to be performed in angio the day of procedure) Assessment: 61 y.o. male with AML undergoing IT Chemo. Plan: - Will proceed with fluoro-guide LP for CSF collection and IT chemo infusion procedure - Labs to be obtained on day of procedure: Platelets/Coags - Meds to hold: Lovenox to be held for 12 hours prior to procedure - Position: Prone - Antibiotic prophylaxis: None - Sedation: Local - Consent: Serial consent completed 09/11/2021 Marianne Lemus MD documented in this encounter Plan of Treatment Upcoming Encounters Date Type Specialty Care Team Description 02/18/2022 Infusion Hematology and Oncology 02/21/2022 Infusion Hematology and Oncology 02/24/2022 Appointment Hematology and Oncology 02/24/2022 Office Visit Hematology and Oncology Parviz Modi MD [facility] DR HEMATOLOGY/[place] [address] Miroslava Pelayo APRN [facility] DR HEMATOLOGY/[place] [address] 02/24/2022 Office Visit Wound Care 02/24/2022 Appointment Hematology and Oncology 02/26/2022 Office Visit Neurology Leni Bustamante MD [facility] DR NEUROLOGY DEPT. [place], [place] [address] (Wo rk) documented as of this encounter Visit Diagnoses Not on filedocumented in this encounter Additional Health Concerns Infection Onset Date Last Indicated Resolved Time History of C. difficileComment: C. 08/20/2021 08/20/2021 diffiicile testing positive 05/25/21. Rule Out C. difficile 10/19/2021 10/19/2021 10/19/2021 4:07 PM EST Rule Out C. difficile 10/28/2021 10/28/2021 10/28/2021 1:34 PM EDT documented as of this encounter Care Teams Oracle Erp Developer Relationship Specialty Start Date End Date Beatriz Maurice PA PCP - General Family Medicine 05/06/21 [address] [place] [address] documented as of this encounter
--- OUTSIDE RECORDS SUMMARY | 2022-02-14 11:15 | XMS_ITS | Encounter Summary ---
:1960 Author Organization [facility] [address] Care Team Providers Name Role Phone Beatriz Maurice Primary Care Provider Reason for Visit Treatment/Therapy Plan Authorization (Routine) - Closed Specialty Diagnoses / Procedures Referred By Contact Refer red To Contact Diagnoses Acute leukemia not having achieved remission Walter Murcia MD Ip Hem Onc [facility] HEMATOLOGY/[place] [address] [place] [address] Referral ID Status Reason Start Date Expiration Date Visits Requ ested Visits Authorized [id number] Closed 07/15/2021 07/15/2022 99 99 Encounter Details Date Type Department Care Team Description 09/27/2021 Hospital Encounter Hematology and Acute l eukemia not Oncology at [facility] having achieved [facility] [address] Social History Tobacco Use Types Packs/Day [...] Sign Reading Time Taken Comments Blood Pressure - - Pulse - - Temperature 36.2 ??C (97.2 ??F) 09/27/2021 11:56 AM EST Respiratory Rate - - Oxygen Saturation - - Inhaled Oxygen Concentration - - Weight - [...] of Sensura [place] Soft Convex One-piece Pouch #[id number] per month. Ostomy Supplies Misc Dispense 2 boxes 40 each 2 (20/box) of Brava Elastic Barrier strips #[id number] per month. Ostomy Supplies Misc Dispense 1 box 50 each 08/20/2021 (50/box) of a generic no-sting skin barrier wipe per month. acyclovir (Zovirax) 400 Take 1 tablet by 60 tablet 202111/18/2021 mg Tablet mouth 2 times daily. levoFLOXacin (Levaquin) Take 1 tablet by 30 tablet 202111/18/2021 750 mg Tablet mouth daily. vancomycin (Vancocin) Take 1 capsule by 60 capsule 022 11/18/2021 125 mg Capsule mouth 2 times daily. metoprolol succinate XL Take 1 tablet by 30 tablet 202111/18/2021 (Toprol-XL) 50 mg Tablet mouth daily. Sustained Release 24 hr Colostomy Belt (Ostomy Dispense 1 Sensura 1 each 08/2012/13/2021 Belt Medium) Misc Flako Belt #4237 per month. loperamide (Imodium A-D) [...] documented as of this encounter Progress Notes Libra Deleon RN - 09/27/2021 12:26 PM EST Patient Name: Herber Iverson Jr. Patient Age: 61 y.o. Birthdate: 1960 Admit date: 09/27/2021 Attending Physician: No att. providers found Herber Iverson Jr., 61 y.o., male with diagnosis of AML is here for intrathecal administration procedure and injection of solu-cortef and cytarabine. PLTS: 152 INR: 1.1 PTT: 33 Consent for procedure verified. Double-check performed at the bedside prior to IT procedure per policy. Needle out time: 1525 Patient remained flat in bed and was monitored for one hour following the procedure. Intrathecal insertion site benign. Assessed prior to discharge. Herber Iverson Jr. denies any signs/symptoms of increased intracranial pressure including: headache, confusion, lethargy, nausea/vomiting/diarrhea, and seizures documented in this encounter Plan of Treatment Upcoming Encounters Date Type Specialty Care Team Description 02/18/2022 Infusion Hematology and Oncology 02/21/2022 Infusion Hematology and Oncology 02/24/2022 Appointment Hematology and Oncology 02/24/2022 Office Visit Hematology and Oncology Parviz Modi MD [facility] DR HEMATOLOGY/[place] [address] Miroslava Pelayo APRN [facility] HEMATOLOGY/[place] [address] 02/24/2022 Office Visit Wound Care 02/24/2022 Appointment Hematology and Oncology 02/26/2022 Office Visit Neurology Leni Bustamante MD [facility] DR NEUROLOGY DEPT. [place], [place] [address] (Wo rk) documented as of this encounter Procedures Procedure Name Priority Date/Time Associated Comments Diagnosis INFECTIOUS DISEASE Routine 09/27/2021 10:30 AM Re sults for this SERO PANEL EST procedure are i n the results section. documented in this encounter Results Infectious Disease Sero Panel (09/27/2021 10:30 AM EST) [facility] Method Time Signature Sero Panel Patient: Kishor Anne (1), Herber RO Date of : 1960 [facility] Identification Number: [id number] [facility] Date Sample Drawn: 09/27/2021 HOSPITAL LAB[facility] The following serological tests were performed: ABO/Rh type = O Positive Babesia Screen = Negative ?[Ref Value: Negative] Hepatitis B Core Antibody = Negative ? [Ref Value: Negat gilbert] Hepatitis B Surface Antigen = Negative ?? [Ref Value: Negati ve] Hepatitis C Virus = Negative ? [Ref Value: N egative] HIV 1/2 Antibody = Negative ?[Ref Value: Negative] HTLV I/II Antibody = Negative ?[Ref Value: N egative] Antibody Screen(IAT)= Negative ? [Ref Value: Ne gative] EPHRAIM Multiplex = Negative ? [Ref Value: Negative] Syphilis Serology = Non-reactive ? [Ref Value: Non -reactive] West Nile Virus EPHRAIM = Negative ? [Ref Value: Ne gative] Chagas Antibody = Negative ? [Ref Value: Negative] CMV Antibody = Negative ?[Ref Value : Negative] All testing was performed by: [facility] [id number] [place] [address] CLIA ID Number: [id number] Specimen Anatomical Collection Method Collection Time Receive d Time (Source) Location / / Volume Laterality Blood Other / Unknown 09/27/2021 10:30 09/27/19 22 AM EST 10:30 AM EST Resulting Agency Comment Spec In Lab Parviz Modi MD BLOOD BANK ORDERABLES Performing Organization Address City/State/[place] [address] documented in this encounter Visit Diagnoses Diagnosis Acute leukemia not having achieved remis sharon Acute leukemia of unspecified cell type, without mention of having achieved remission documented in this encounter Administered Medications Inactive Administered Medications - up to 3 most recent administrations Medication Order MAR Action Action Date Dose Rate Site hydrocortisone sodium succinate Given 09/27/2021 3:19 PM EST 60 mL/hr (PF) (Solu-CORTEF) 50 mg, cytarabine (PF) (Elke-C) 100 mg, sodium chloride 0.9% 2.5 mL INTRATHECAL injection Intrathecal, ONCE, 1 dose, On Thu09/27/21 at 1330, Administer over 6 Minutes, 1) Recommend the following labs be ordered prior to intrathecals: Platelet, PT/INR, and APTT. For intrathecal administration only. 2) PHYSICAL CHEMIST prophylaxis (intrathecal therapy) given on days 2 and 7 with each cycle for 16 treatments. If there is a PHYSICAL CHEMIST involvement, intrathecal therapy augmented to twice weekly until CSF cell count normalized and cytology is negative for malignant cells. If there PHYSICAL CHEMIST involvement give intrathecal therapy alternating with methotrexate and cytarabine weekly for 4 doses (including planned intrathecal on days 2 and 7 if course is given). 3) All intrathecal products mixed with preservative-free normal saline and prepared in a total volume of 6 mL. LORazepam (Ativan) tablet 0.5 mg Given 09/27/2021 1:16 PM EST 0.5 mg 0.5 mg, Oral, ONCE, 1 dose, On Thu09/27/21 at 1330, Administer prior to intrathecal chemotherapy., Routine ondansetron (Zofran) tablet 8 mg Given 09/27/2021 1:16 PM EST 8 mg 8 mg, Oral, ONCE, 1 dose, On Thu09/27/21 at 1330, Administer prior to intrathecal chemotherapy. Hold ondansetron premedication if patient has received ondansetron within the past 12 hours or palonosetron within the last 72 hours; do not exceed 32 mg/24 hours of ondansetron., Routine documented in this encounter Additional Health Concerns Infection Onset Date Last Indicated Resolved Time History of C. difficileComment: C. diffiicile 08/20/2021 testing positive 05/25/21. documented as of this encounter Care Teams Hand Printed Circuit Board Assembler Relationship Specialty Start Date End Date Beatriz Maurice PA PCP - General Family Medicine 05/06/21 [address] [place] [address] documented as of this encounter
--- OUTSIDE RECORDS SUMMARY | 2022-02-14 11:15 | XMS_ITS | Encounter Summary ---
:1960 Author Organization [place] [address] Care Team Providers Name Role Phone Beatriz Maurice Primary Care Provider Reason for Visit Reason Onset Date Comments Prior Authorization 09/20/2021 Encounter Details Date Type Department Care Team Description 09/20/2021 Telephone Hematology and Oncology at [place] [address] Social History Tobacco Use Types Packs/Day [...] Notes Telephone Encounter - Claudia López - 09/20/2021 1:53 PM EST Procedure Prior Authorization Procedure/Cpt: 53446 Transthoracic Echo Rationale for request: Z76.82 Health plan: [facility] Authorizing client account representative name: [facility] Call to health plan on: 09/20/21 Health plan decision: PA is not required Quantity approved: NA Call reference info: Max A 09/20/21 documented in this encounter Plan of Treatment Upcoming Encounters Date Type Specialty Care Team Description 02/18/2022 Infusion Hematology and Oncology 02/21/2022 Infusion Hematology and Oncology 02/24/2022 Appointment Hematology and Oncology 02/24/2022 Office Visit Hematology and Oncology Parviz Modi MD [facility] DR HEMATOLOGY/[place] [address] Miroslava Pelayo APRN [facility] [address] HEMATOLOGY/[place] [address] 02/24/2022 Office Visit Wound Care 02/24/2022 Appointment Hematology and Oncology 02/26/2022 Office Visit Neurology Leni Bustamante MD [facility] DR NEUROLOGY DEPT. [place], [place] [address] (Wo rk) documented as of this encounter Visit Diagnoses Not on filedocumented in this encounter Additional Health Concerns Infection Onset Date Last Indicated Resolved Time History of C. difficileComment: C. diffiicile 08/20/2021 testing positive 05/25/21. documented as of this encounter Care Teams Biofuels Production Associate Relationship Specialty Start Date End Date Beatriz Maurice PA PCP - General Family Medicine 05/06/21 [address] [place] [address] documented as of this encounter
--- OUTSIDE RECORDS SUMMARY | 2022-02-14 11:15 | XMS_ITS | Encounter Summary ---
:1960 Author Organization [facility] Address [address] [address] Care Team Providers Name Role Phone Beatriz Maurice Primary Care Provider Reason for Visit Auth/Cert Specialty Diagnoses / Procedures Referred By Contact Refer red To Contact Diagnoses aml Procedures PRO DIAGNOSTIC BONE MARROW BIOPSIES & ASPIRATIONS (OSC MSURG) BONE MARROW BIOPSY AND ASPIRATION; DIAGNOSTIC Referral ID Status Reason Start Date Expiration Date Visits Requ ested Visits Authorized [id number] 1 1 Encounter Details Date Type Department Care Team Description 09/12/2021 Hospital Encounter Outpatient Surgery Radha Modi, Center Latrice Perez MD [facility] HEMATOLOGY/ONCOLOGY Drive DEPT. [place], [place] [id number] [phone] Social History Tobacco Use Types Packs/Day Years [...] Sign Reading Time Taken Comments Blood Pressure 119/69 09/12/2021 9:15 AM EST Pulse 77 09/12/2021 9:15 AM EST Temperature 36.2 ??C (97.2 ??F) [...] 5pm or on a weekend: Call the [facility] gear hobber set up operator at and ask for the physician field operations farm manager covering for your doctor. Instructions following sedation [...] drainage occurs, please contact your M. D. [address] ??? [place] [address] ??? [phone] ??? [email or web address] ??? [facility] ??? [facility] ??? .A. [facility] documented in this encounter Medications at Time of Discharge Medication Sig Dispensed Refills Start Date End Date Ostomy Supplies [facility] Dispense 2 boxes ( 20 each 11 022 10/box) of Adapt Barrier rings #8925 per month. Ostomy Supplies Dispense 1 bottle of 28.3 g 5 08/20/2021 Powder Adapt stoma powder #7906 every other month. Ostomy Supplies [facility] Dispense 2 boxes 20 each 2 (10/box) of Sensura [place] Soft Convex One-piece Pouch #[id number] per month. Ostomy Supplies [facility] Dispense 2 boxes 40 each 2 (20/box) of Brava Elastic Barrier strips #[id number] per month. Ostomy Supplies [facility] Dispense 1 box (50/box) 50 each of [...] 24 hr Colostomy Belt Dispense 1 Sensura [place] 1 each 2 12/13/2021 (Ostomy Belt Medium) Belt #4237 per month. [facility] loperamide (Imodium Take 1 capsule by mouth [...] Indications: restaging Diagnosis: FT3+ AML with positive HANDYMAN disease Assessment Cardiovascular: Rhythm: Regular Rate: Normal [...] Luna APRN Nurse Practitioner Section of Hematology/Oncology [facility] Office phone: documented in this encounter Procedure Notes Glenis Luna APRN - 09/12/2021 9:01 AM EST BONE MARROW BIOPSY AND ASPIRATION PROCEDURE NOTE Bone Marrow Biopsy & Aspiration with Conscious Sedation - Unilateral Date/Time of Procedure: 09/12/2021 Proceduralist: Glenis Luna APRN DIAGNOSIS: FT3+??AML??with positive HANDYMAN disease ?? Pre-Procedure: (x) Consent signed and [...] [facility] DR HEMATOLOGY/[place] [address] Miroslava Pelayo APRN [facility] DR HEMATOLOGY/[place] [address] 02/24/2022 Office Visit Wound Care 02/24/2022 Appointment Hematology and Oncology 02/26/2022 Office Visit Neurology Leni Bustamante MD [facility] NEUROLOGY DEPT. [place], [place] [address] (Wo rk) documented as of this encounter Procedures Procedure Name Priority Date/Time Associated Comments Diagnosis [facility] SIMMONS TEST-SIMMONS Routine 09/12/2021 8:50 AM Re sults for this EST procedure are i n the results section. IRON STAIN, BONE Routine 09/12/2021 8:50 AM Resul ts for this MARROW EST procedure are i n the results section. BONE MARROW PANEL Routine 09/12/2021 8:50 AM ([facility]/CGP/APD) EST (OSC MSURG) BONE 09/12/2021 8:26 AM [...] ASPIRATION; DIAGNOSTIC documented in this encounter Results [facility] Test-Simmons (09/12/2021 8:50 AM EST) [facility] Method Time Signature [facility] LATRICE Test ?Result ? Flag ??Unit ??RefValue [facility] NPM1 Mutation Analysis, V HOSP ITAL ??Specimen Type ? Bone [facility] LABORATORY ??Interpretation ?SEE COM MENTS ?Bone marrow, [...] ?incidence of relapse (Idania et al, 2006, [id number]; Millie lester ?et al, 2005, [id number]; Lary et al, 2005; [id number]). ?In NPM1-mutated AML patients, persistence of NPM1-muta charlie ?transcript, particularly at higher levels (>100-200/10 ,000 ?ABL1 copies) after at least two cycles of cytotoxic ?chemotherapy is associated with increased risk of rela pse ?and lower rate of survival (Krbrynke et al, 2011, [id number] [phone]; ?Octavio et al, 2013, [id number]; Saida et al, 2016, ?[id number]). Trends in the level of NPM1-mutated transcr ipt ?should be followed carefully. An increase of NPM1-muta charlie ?transcript level greater than or equal to 1 log10 betw een ?two positive samples is consistent with molecular ?relapse/molecular progression (Schmelanie et al, 2018, ?[id number]). The reproducibility of this assay is such [...] The quantitative assay is a RNA-based reverse ?ice cream scooper real-time polymerase chain reaction (RT- PCR) ?which detects and quantifies the most common mutant MINIATURE MODEL MAKER M1 ?transcripts (A, B, D forms) which [...] and its performance characteri stics ?determined by [facility] in a manner consistent with CLIA ?requirements. This test has not been cleared or approv ed by ?the U.S. Food and Drug Administration. ??Signing Pathologist ? Meron Maynard M.D. ?Test Performed by: ?[facility] ?[address] [place] [address] ?Imaging Assistant: Randal Aparicio M.D. Ph.D.; CLIA# [id number] Specimen Anatomical Collection Method Collection Time Receive d Time (Source) Location / / Volume Laterality Other Other / Unknown 09/12/2021 8:50 AM 2021 3:57 EST PM EST Narrative This result has an attachment that is no t available. Resulting Agency Comment Spec In Lab Parviz Modi MD CHEMISTRY ORDERABLES Performing Organization Address City/[facility]/ZIP Code [place] [address] Iron Stain, Bone Marrow (09/12/2021 8:50 AM EST) [facility] Method Time Signature Iron Stain BM See Comment [facility] LABORATORY Comment: See Bone Marrow Report [id number] under Hematopathology Reports. Specimen Anatomical Collection Method Collection Time Receive d Time (Source) Location / / Volume Laterality Bone Marrow 09/12/2021 8:50 AM 2 9:09 EST AM EST Resulting Agency Comment Spec In Lab Parviz Modi MD HEMATOLOGY ORDERABLES Performing Organization Address City/[facility]/ZIP Code Phon e Number [address] Scan, Peripheral Blood (09/12/2021 7:41 AM EST) [facility] Signature Plat Estimate Decreased [facility] LABORATORY RBC Morphology Abnormal [facility] LABORATORY Macrocytes 1-5 /HPF [facility] LABORATORY Microcytes 1-5 /HPF [facility] LABORATORY Specimen Anatomical Collection Method Collection Time Receive d Time (Source) Location / / Volume Laterality Blood 09/12/2021 7:41 AM 2 9:16 EST AM EST Resulting Agency Comment Spec In Lab Parviz Modi MD HEMATOLOGY ORDERABLES Performing Organization Address City/[facility]/ZIP Code Phon e Number [address] (ABNORMAL) Differential, Automated (09/12/2021 7:41 AM EST) [facility] Signature Neutrophils % 54.6 % [facility] LABORATORY Neutr Abs (ANC) 0.99 (L) 1.70 - [facility] 6.10 [facility] x10(3)/[facility] L LABORATORY Lymphocytes % 36.5 % [facility] LABORATORY Lymphocytes Abs 0.7 (L) 0.9 - 3.2 [facility] x10(3)/[facility] LABORATORY Monocytes % 7.2 % [facility] LABORATORY Monocyte Abs 0.1 (L) 0.3 - 0.9 [facility] x10(3)/[facility] LABORATORY Eosinophils % 0.0 % [facility] LABORATORY Eosinophils Abs 0.0 0.0 - 0.4 [facility] x10(3)/[facility] LABORATORY Basophils % 0.0 % [facility] LABORATORY Basophils Abs 0.0 0.0 - 0.1 [facility] x10(3)/[facility] LABORATORY Immature Gran % 1.70 % [facility] LABORATORY Comment: Immature granulocytes(IG's)percentage an d absolute count will include metamyelocytes, myelocytes, and promyelo cytes. Blood smears from CBCs yielding IG's will be scanned manually for concor dance. If this scan disagrees with the automated IG or if promyelocytes are not ed, a manual differential will be performed. Zara Gran Abs 0.03 0.00 - 0.04 x10(3)/[facility] MAR Y [facility] LABORATORY Specimen Anatomical Collection Method Collection Time Receive d Time (Source) Location / / Volume Laterality Blood 09/12/2021 7:41 AM 9:16 EST AM EST Resulting Agency Comment Spec In Lab Parviz Modi MD HEMATOLOGY ORDERABLES Performing Organization Address City/State/[place] [address] (ABNORMAL) Hemogram (09/12/2021 7:41 AM EST) P athologist Signature WBC 1.8 4.0 - 9.5 [facility] (Critical) x10(3)/[facility] LABORATORY Comment: This result has been called to KYLE EARLY by Ced Morales on 09 12 2021 at 0930, and has been read back. RBC 2.78 (L) 4.58 - 5.54 x10(6)/[facility] LABORATORY Hemoglobin 9.0 (L) 13.7 - 16.5 g/dL [facility] LABORATORY Hematocrit 25.8 (L) 40.5 - 48.5 % [facility] LABORATORY MCV 92.8 82.9 - 93.1 fL [facility] LABORATORY MCH 32.4 (H) 27.5 - 32.1 pg [facility] LABORATORY MCHC 34.9 32.0 - 35.7 g/dL [facility] LABORATORY Platelets 125 (L) 145 - 357 x10(3)/[facility] LABORATORY RDWSD 49.1 (H) 36.0 - 45.0 fL [facility] LABORATORY RDWCV 20.6 (H) 11.4 - 13.8 % [facility] LABORATORY MPV 10.0 7.6 - 12.9 fL [facility] LABORATORY nRBC % Auto 5.5 % [facility] LABORATORY nRBC Abs Auto 0.100 (H) 0.000 - 0.000 x10(3)/[facility] LABORATORY Specimen Anatomical Collection Method Collection Time Receive d Time (Source) Location / / Volume Laterality Blood 09/12/2021 7:41 AM 9:16 EST AM EST Resulting Agency Comment Spec In Lab Parviz Modi MD HEMATOLOGY ORDERABLES Performing Organization Address City/State/[place] [address] Bone Marrow Final Report (09/12/2021 7:08 AM EST) Component Value Ref Test Analysis Performed At [facility] gist Range Method Time Signature Bone Marrow [id number] ? Location: [facility] Final [facility] The signing pathologist has (i) examined [...] MD Verified: ??09/13/2021 16:13 ??Hematopathologist Performed at: ??-[facility] Dept. of Pathology, [place], [place] DISCUSSION No abnormal increase in blasts [...] the touch prep: Band/Seg 5.5%; Lymph 14.0%; Potter 1.0%; Eos 0%; Baso 0%; Metamyelocyte 6.5%; [...] developed and their performance characteristics determined by [facility] Clinical Laboratories. ??They have not been cleared [...] Organization Address City/State/ZIP Code Phon e Number [place] [phone] documented in this encounter Visit Diagnoses Not on filedocumented in this encounter Administered Medications Inactive Administered Medications - up to 3 most recent administrations Medication Order MAR Action Action Date Dose Rate Site sodium chloride 0.9% New Bag 09/12/2021 7:48 AM EST 1,000 mLs 100 mL/hr infusion 1,000 mL, at 100 mL/hr, Intravenous, CONTINUOUS, [...] (CANCEL ED) 0830 (Given - Provider: Elenita Toscano RN) 25-50 mcg, Intravenous, EVERY 5 MIN PRN, Starting on Kassy 09/12/21 at 0708, Until Kassy 09/12/21 at 0943, Pain, Hold for respiratory rate less than 8 breaths per minute. (maximum dose 200 mcg), Intra-Operative (Intra-Procedure), Routine midazolam (pf) (Versed) (1 mg/mL) multi-dose injection 0.5-2 mg (CANCELED) 0830 (Given - Provider: Elenita Toscano, RN)0835 (Given - Provider: Elenita Toscano, SHARON) 0.5-2 [...] as of this encounter Care Teams Business Executive Relationship Specialty Start Date End Date Beatriz Maurice PA PCP - General Family Medicine 05/06/21 [address] [place] [address] documented as of this encounter
--- OUTSIDE RECORDS SUMMARY | 2022-02-14 11:15 | XMS_ITS | Encounter Summary ---
:1960 Author Organization [facility] Address [facility] [place] [address] Care Team Providers Name Role Phone Beatriz Maurice Primary Care Provider Encounter Details Date Type Department Care Team Description 09/12/2021 Orders Only Hematology and Oncology at [facility], Miroslava Spivey APRN [facility] Catie narvaez HEMATOLOGY/[place] [address] DEPT. [phone] [place], [place] [address] (Wo rk) Social History Tobacco [...] Hematology and Oncology Parviz Modi MD [facility] DR HEMATOLOGY/[place] [address] Miroslava Pelayo APRN [facility] HEMATOLOGY/[place] [address] 02/24/2022 Office Visit Wound Care 02/24/2022 Appointment Hematology and Oncology 02/26/2022 Office Visit Neurology Leni Bustamante MD [facility] NEUROLOGY DEPT. [place], [place] [address] (Wo rk) documented as of this encounter Visit Diagnoses Not on filedocumented in this encounter Additional Health Concerns Infection Onset Date Last Indicated Resolved Time History of C. difficileComment: C. diffiicile 08/20/2021 testing positive 05/25/21. documented as of this encounter Care Teams Audit Partner Relationship Specialty Start Date End Date Beatriz Maurice PA PCP - General Family Medicine 05/06/21 [address] [place] [address] documented as of this encounter
--- OUTSIDE RECORDS SUMMARY | 2022-02-14 11:15 | XMS_ITS | Encounter Summary ---
:1960 Author Organization [facility] [place] [address] Care Team Providers Name Role Phone Beatriz Maurice Primary Care Provider Encounter Details Date Type Department Care Team Description 09/19/2021 Notes Only Radiology at [facility] Edyta Templeton, ELECTRICAL TECH [facility] [place] [address] NEUROSURGERY [phone] [place], [place] [address] (Wo rk) Social History Tobacco [...] documented as of this encounter Progress Notes Edyta Templeotn APRN - 09/19/2021 11:19 AM EST NEURORADIOLOGY PRE-PROCEDURE NOTE Name: Herber Iverson Date of : 1960 Referring Physician: Hayley Palmer APRN Indication: 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 is a 61 y.o. male with the above history. Referred for LP for serial IT chemotherapy. Patient Active Problem List Diagnosis Code ??? Acute leukemia C95.00 ??? Clostridium difficile colitis A04.72 ??? 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 AML (acute myeloblastic leukemia) C92.00 ??? Paroxysmal atrial fibrillation I48.0 ??? GERD (gastroesophageal reflux disease) K21.9 ??? BPH (benign prostatic hyperplasia) N40.0 Allergies Allergen Reactions ??? Other [Unclassified Drug] Other (See Comments) Artificial Sweetners-lightheadedness, dizziness Medications: Current Outpatient Medications: ??? venetoclax (Venclexta) 100 mg tablet, Take 1 tablet (100 mg) by mouth daily for 30 days. Take with food and a large glass of water. Call clinic before starting medication. Indications: acute myeloid leukemia, a type of blood cancer, Disp: 30 tablet, Rfl: 5 ??? sulfamethoxazole-trimethoprim DS (Bactrim DS) 800-160 mg Tablet, Take 1 tablet by mouth three times a week., Disp: 12 tablet, Rfl: 5 ??? acyclovir (Zovirax) 400 mg Tablet, Take 1 tablet by mouth 2 times daily., Disp: 60 tablet, Rfl: 5 ??? fluconazole (Diflucan) 200 mg Tablet, Take 2 tablets by mouth daily for 30 days., Disp: 60 tablet, Rfl: 5 ??? levoFLOXacin (Levaquin) 750 mg Tablet, Take 1 tablet by mouth daily., Disp: 30 tablet, Rfl: 5 ??? vancomycin (Vancocin) 125 mg Capsule, Take 1 capsule by mouth 2 times daily., Disp: 60 capsule, Rfl: 5 ??? metoprolol succinate XL (Toprol-XL) 50 mg Tablet Sustained Release 24 hr, Take 1 tablet by mouthdaily., Disp: 30 tablet, Rfl: 5 ??? gilteritinib (Xospata) 40 mg tablet, Take 3 tablets (120 mg) by mouth daily. Call clinic before starting medication. Indications: acute myeloid leukemia with FLT3 mutation, Disp: 90 tablet, Rfl: 0 ??? Ostomy Supplies Misc, Dispense 2 boxes ( 10/box) of Adapt Barrier rings #7805 per month., Disp: 20 each, Rfl: 11 ??? Colostomy Belt (Ostomy Belt Medium) Misc, Dispense 1 Sensura [place] Belt #4237 per month., Disp: 1 each, Rfl: 11 ??? Ostomy Supplies Powder, Dispense 1 bottle of Adapt stoma powder #7906 every other month., Disp: 28.3 g, Rfl: 5 ??? Ostomy Supplies Misc, Dispense 2 boxes (10/box) of Sensura [place] Soft Convex One-piece Pouch #03673 per month., Disp: 20 each, Rfl: 11 ??? Ostomy Supplies Misc, Dispense 2 boxes (20/box) of Brava Elastic Barrier strips #[id number] per month., Disp: 40 each, Rfl: 11 ??? Ostomy Supplies Misc, Dispense 1 box (50/box) of a generic no-sting skin barrier wipe per month., Disp: 50 each, Rfl: 11 ??? loperamide (Imodium A-D) 2 mg Capsule, Take 1 capsule by mouth 3 times daily., Disp: 90 tablet, Rfl: 0 ??? tamsulosin (Flomax) 0.4 mg Capsule, Take 1 capsule by mouth daily., Disp: 90 tablet, Rfl: 0 ??? flecainide (TAMBOCOR) 50 mg Tablet, Take 1 tablet by mouth 2 times daily., Disp: 60 tablet, Rfl:3 ??? famotidine (Pepcid) 20 mg Tablet, Take 2 tablets by mouth daily., Disp: 30 tablet, Rfl: 12 Labs: Lab Results Component Value Date/Time PLATELET 117 (L) 09/16/2021 10:48 AM PT 10.9 09/09/2021 08:37 AM INR 1.0 09/09/2021 08:37 AM PTT 32 09/09/2021 08:37 AM Imaging: In edh. Assessment / Plan: 61 y.o. male with the above history. Will proceed as ordered. Labs to be performed day of procedure: Platelet count and coagulation profile the day of the procedure. Medication to STOP: Hold lovenox 12 hour prior. Sedation: no sedation Additional medications for procedure: Lidocaine 1% Consent: Serial consent on file from 07/12/21. Edyta Templeton APRN 09/19/2021 11:20 AM documented in this encounter Plan of Treatment Upcoming Encounters Date Type Specialty Care Team Description 02/18/2022 Infusion Hematology and Oncology 02/21/2022 Infusion Hematology and Oncology 02/24/2022 Appointment Hematology and Oncology 02/24/2022 Office Visit Hematology and Oncology Parviz Modi MD [facility] DR HEMATOLOGY/[place] [address] Miroslava Pelayo APRN [facility] HEMATOLOGY/[place] [address] 02/24/2022 Office Visit Wound Care 02/24/2022 Appointment Hematology and Oncology 02/26/2022 Office Visit Neurology Leni Bustamante MD [facility] DR NEUROLOGY DEPT. [place], [place] [address] (Wo rk) documented as of this encounter Visit Diagnoses Diagnosis Lumbar puncture within last 10 days documented in this encounter Additional Health Concerns Infection Onset Date Last Indicated Resolved Time History of C. difficileComment: C. diffiicile 08/20/2021 testing positive 05/25/21. documented as of this encounter Care Teams Food Preparation Supervisor Relationship Specialty Start Date End Date Beatriz Maurice PA PCP - General Family Medicine 05/06/21 [address] [place] [address] documented as of this encounter
--- OUTSIDE RECORDS SUMMARY | 2022-02-14 11:15 | XMS_ITS | Encounter Summary ---
:1960 Author Organization [place] [address] Care Team Providers Name Role Phone Beatriz Maurice Primary Care Provider Encounter Details Date Type Department Care Team Description 09/12/2021 Telephone Hematology and [place] [facility] [place] Zambrano, [place] [address] Social History Tobacco Use Types Packs/Day [...] Telephone Encounter - Qi Zambrano RN - 09/12/2021 9:32 AM EST RN received call at 0932 from Ced with Lab reporting critical result(s) on patient: WBC 1.81 RN notified Miroslava Pelayo APRN of above results at 09:32. Patient getting [facility] today [place] [facility]. documented in this encounter Plan of Treatment Upcoming Encounters Date Type Specialty Care Team Description 02/18/2022 Infusion Hematology and Oncology 02/21/2022 Infusion Hematology and Oncology 02/24/2022 Appointment Hematology and Oncology 02/24/2022 Office Visit Hematology and Oncology Parviz Modi MD [facility] DR HEMATOLOGY/[place] [address] Miroslava Pelayo APRN [facility] HEMATOLOGY/[place] [address] 02/24/2022 Office Visit Wound Care 02/24/2022 Appointment Hematology and Oncology 02/26/2022 Office Visit Neurology Leni Bustamante MD [facility] NEUROLOGY DEPT. [place], [place] [address] (Wo rk) documented as of this encounter Visit Diagnoses Not on filedocumented in this encounter Additional Health Concerns Infection Onset Date Last Indicated Resolved Time History of C. difficileComment: C. diffiicile 08/20/2021 testing positive 05/25/21. documented as of this encounter Care Teams Search Advertising Strategist Relationship Specialty Start Date End Date Beatriz Maurice PA PCP - General Family Medicine 05/06/21 [address] [place] [address] documented as of this encounter
--- OUTSIDE RECORDS SUMMARY | 2022-02-14 11:16 | XMS_ITS | Encounter Summary ---
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 [address] Referral ID Status Reason Start Date Expiration Date Visits Requ ested Visits Authorized [id number] Closed 07/15/2021 07/15/2022 99 99 Encounter Details Date Type Department Care Team Description 09/09/2021 Hospital Encounter Hematology and Acute [place] [facility] [place] [facility] [place] [phone] Social History Tobacco Use Types Packs/Day [...] Sign Reading Time Taken Comments Blood Pressure 102/75 09/09/2021 2:43 PM EST Pulse 72 09/09/2021 2:43 PM EST Temperature 36.9 ??C (98.4 ??F) 09/09/2021 2:43 PM EST Respiratory Rate 16 09/09/2021 2:43 PM EST Oxygen Saturation 98% 09/09/2021 2:43 PM EST Inhaled Oxygen Concentration - - [...] boxes 20 each 2 (10/box) of Sensura Modena Soft Convex One-piece Pouch #[id number] per month. Ostomy Supplies Misc Dispense 2 boxes 40 each 2 (20/box) of Brava Elastic Barrier strips #[id number] per month. Ostomy Supplies Misc Dispense 1 box (50/box) 50 each of a generic no-sting skin barrier wipe per month. sulfamethoxazole-trim Take 1 tablet by mouth 12 tablet 5 11/18/2021 ethoprim DS (Bactrim three times a week. DS) 800-160 mg Tablet fluconazole Take 2 tablets by mouth 60 tablet 5 08/28/2021 09/27/2021 (Diflucan) 200 mg daily for 30 days. Tablet acyclovir (Zovirax) Take 1 tablet by mouth [...] mg daily. Tablet Sustained Release 24 hr gilteritinib Take 3 tablets (120 mg) 90 tablet 0 08/27/2021 12/13/2021 (Xospata) 40 mg by mouth daily. Call tabletIndications: clinic before starting acute myeloid medication. 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 Misc enoxaparin (Lovenox) Inject 1 mL 30 mL 2 08/14/2021 100 mg/mL Syringe subcutaneously daily for 30 days. loperamide (Imodium Take 1 capsule by mouth 90 tablet 0 11/18/2021 A-D) 2 mg Capsule 3 times daily. gabapentin Take 1 capsule by mouth 90 capsule 0 08/07/2021 0 09/12/2021 (Neurontin) 300 mg 2 times daily. Capsule tamsulosin (Flomax) Take 1 capsule by mouth 90 tablet 0 11/18/2021 0.4 mg Capsule daily. venetoclax Take 2 tablets (200 mg) 60 tablet 12 07/31/2021 0 09/13/2021 (Venclexta) 100 mg by mouth daily. Take tabletIndications: with food and a large acute myeloid glass of water. Call leukemia clinic before starting medication. Indications: acute myeloid leukemia, a type of blood cancer flecainide (TAMBOCOR) Take 1 tablet by mouth 60 tablet 3 11/18/2021 50 mg Tablet 2 times daily. famotidine (Pepcid) Take 2 tablets by mouth 30 tablet 12 10/202011/22/2021 20 mg Tablet daily. documented as of this encounter Progress Notes ForSerenity garcia APRN - 09/09/2021 2:22 PM EST Patient Name: Herber Iverson JrNabil Patient Age: 61 y.o. Birthdate: 1960 Admit date: 09/09/2021 Attending Physician: No att. providers found Intrathecal Chemotherapy Administration Procedure Note ?? Location: IR-radiology performed LP under fluoroscopy guide ?? Time of Procedure: ?? Diagnosis: AML Serenity Dahiana MINE EXPERT, Miroslava Pelayo MINE EXPERT ?? Procedure: Intrathecal chemo with LP performed under fluoroscopy guide ?? Pre-Procedure Checklist: ( X ) Patient identity confirmed. ( X ) Patient education regarding procedure and discharge instructions provided. ( X ) Allergy list confirmed. ( X ) CBC drawn within 3 days. PT/PTT drawn AM of procedure ? Platelet count >25,000 ? Coag studies within normal limits ?? Consent: Consent previously signed and in patient's chart and is valid for one year (dated 08/26/2021). ?? Pre-medication: Lorazepam 0.5mg oral and Zofran 8mg oral, given at least 30 minutes prior to procedure ?? Pre-administration Safety Check: Safety sweep performed. Patient identity (with name, , and MRN), intended procedure, drug names/route/date/doses/volume all confirmed with patient's RN. Same items again confirmed against patient's wristband and [place] treatment plan/MAR chemo orders. ?? Sterile Condition: Sterile technique was maintained during IT chemotherapy administration. ?? Procedure: CSF was removed by fluoroscopy radiology team and sent for requested studies. Cytarabine 100mg and Hydrocortisone 50mg all combined in a volume of 6mL was administered intrathecally over thecourse of 6 minutes. Post intervention assessment: Patient had no complaints. ?? Estimated blood loss: none ?? Follow-up: Patient instructed to call with any symptoms of concern, including but not limited to thefollowing; headache, nausea, vomiting, focal neurological symptoms, visual symptoms, fever, chills, bleeding or drainage from LP site. Instructed to wait 24 hours before resuming Lovenox injections. ?? Serenity Talbot, MSN, MINE EXPERT Nurse Practitioner Section of Hematology [place], [place] [address]Llfnxow Name: Balbina Feng RN - 09/09/2021 10:38 AM EST Patient Name: Herber Iverson Jr. Patient Age: 61 y.o. Birthdate: 1960 Admit date: 09/09/2021 Attending Physician: No att. providers found Herber Iverson Jr., 61 y.o. male with diagnosis of AML is here for IT chemotherapy. PROTOCOL: No CYCLE: 3 DAY: Add'l day S: Pt. offers no complaints at this time. Reviewed plan of care for infusion visit; patient verbalized understanding of plan as outlined. O: Chemotherapy orders independently verified for correct drug name, route and dosage per patient's height, weight and BSA by Balbina Franco RN and onsite pharmacist. Chemotherapy administered per hospital policy. REACTIONS (DESCRIPTION, TIME, INTERVENTION AND EFFECTIVENESS) None reported. 1401: LP needle out per Serenity Talbot RN 1501: Patient completed laying down flat for one hour post needle out. Stated he feels fine, LP sitedry and intact. Patient denies s/s of reaction; denies issues/concerns at time of discharge. VSS. A: Pt. Tolerated treatment well. Herber Iverson [...] [facility] DR HEMATOLOGY/[place] [address] Miroslava Pelayo APRN [facility] HEMATOLOGY/[place] [address] 02/24/2022 Office Visit Wound Care 02/24/2022 Appointment Hematology and Oncology 02/26/2022 Office Visit Neurology Leni Bustamante MD [facility] NEUROLOGY DEPT. [place], [place] [address] (Wo rk) documented as of this encounter Visit Diagnoses Diagnosis Acute leukemia not having achieved remis sharon Acute leukemia of unspecified cell type, without mention of having achieved remission documented in this encounter Administered Medications Inactive Administered Medications - up to 3 most recent administrations Medication Order MAR Action Action Date Dose Rate Site hydrocortisone sodium succinate Given 09/09/2021 1:54 PM EST 60 mL/hr (PF) (Solu-CORTEF) 50 mg, cytarabine (PF) (Elke-C) 100 mg, sodium chloride 0.9% 2.5 mL INTRATHECAL injection Intrathecal, ONCE, 1 dose, On Thu09/09/21 at 1130, Administer over 6 Minutes, 1) Recommend the following labs be ordered prior to intrathecals: Platelet, PT/INR, and APTT. For intrathecal administration only. 2) ENTOMOLOGY PROFESSOR prophylaxis (intrathecal therapy) given on days 2 and 7 with each cycle for 16 treatments. If there is a ENTOMOLOGY PROFESSOR involvement, intrathecal therapy augmented to twice weekly until CSF cell count normalized and cytology is negative for malignant cells. If there ENTOMOLOGY PROFESSOR involvement give intrathecal therapy alternating with methotrexate and cytarabine weekly for 4 doses (including planned intrathecal on days 2 and 7 if course is given). 3) All intrathecal products mixed with preservative-free normal saline and prepared in a total volume of 6 mL. LORazepam (Ativan) tablet 0.5 mg Given 09/09/2021 12:05 PM EST 0.5 mg 0.5 mg, Oral, ONCE, 1 dose, On Thu09/09/21 at 1215, Administer prior to intrathecal chemotherapy., Routine ondansetron (Zofran) tablet 8 mg Given 09/09/2021 12:05 PM EST 8 mg 8 mg, Oral, ONCE, 1 dose, On Thu09/09/21 at 1215, Administer prior to intrathecal chemotherapy. Hold ondansetron [...] documented as of this encounter Care Teams [employer] Worker Relationship Specialty Start Date End Date Beatriz Maurice PA PCP - General Family Medicine 05/06/21 [address] [place] [address] documented as of this encounter
--- OUTSIDE RECORDS SUMMARY | 2022-02-14 11:16 | XMS_ITS | Encounter Summary ---
:1960 Author Organization [facility] Address [address] [place] [address] Care Team Providers Name Role Phone Beatriz Maurice Primary Care Provider Encounter Details Date Type Department Care Team Description 09/05/2021 Hospital Encounter XRay at [facility] Miroslava Pelayo Acute myeloid [address] [place] [address] Allyssa APRN leukemia not having [place] [facility] [place] [phone] CENTER [phone] HEMATOLOGY/[place] [address] Social History Tobacco Use Types Packs/Day Years [...] powder #[id number] every other month. Ostomy Supplies [facility] Dispense 2 boxes 20 each 2 (10/box) of Sensura Charlotte Soft Convex One-piece Pouch #[id number] per month. Ostomy Supplies Mis Dispense 2 boxes 40 each 2 (20/box) of Brava Elastic Barrier strips #[id number] per month. Ostomy Supplies [facility] Dispense 1 box (50/box) 50 each of [...] FLT3 mutation Colostomy Belt Dispense 1 Sensura [employer] 1 each 2 12/13/2021 (Ostomy Belt Medium) Belt #[id number] per month. [facility] enoxaparin (Lovenox) Inject 1 mL 30 mL [...] Tablet daily. documented as of this encounter Plan of Treatment Upcoming Encounters Date Type Specialty Care Team Description 02/18/2022 Infusion Hematology and Oncology 02/21/2022 Infusion Hematology and Oncology 02/24/2022 Appointment Hematology and Oncology 02/24/2022 Office Visit Hematology and Oncology Parviz Modi MD [facility] [address] HEMATOLOGY/[place] [address] Miroslava Pelayo APRN [facility] [address] HEMATOLOGY/[place] [address] 02/24/2022 Office Visit Wound Care 02/24/2022 Appointment Hematology and Oncology 02/26/2022 Office Visit Neurology Leni Bustamante MD [facility] ER NEUROLOGY DEPT. [place], [place] [address] (Wo rk) documented as of this encounter Procedures Procedure Name Priority Date/Time Associated Comments Diagnosis FLUID REVIEW REPORT Routine 09/05/2021 4:49 PM Re sults for this EST procedure are i n the results section. XR FLUORO GUIDED LUMBAR Routine 09/05/2021 4:32 PM Acute myelo id Results for this PUNCTURE FOR IT EST leukemia not procedure ar e in CHEMOTHERAPY having achieved the results remission section. HC CSF CELL CT W/ Routine 09/05/2021 2:49 PM Acute myeloid DIFFERENTIAL EST leukemia not having achieved remission CSF CELL COUNT Routine 09/05/2021 2:49 PM Acute myeloid Result s for this EST leukemia not procedure are i n having achieved the results remission section. CSF DESC 4 Routine 09/05/2021 2:49 PM Acute myeloid Results for this EST leukemia not procedure are i n having achieved the results remission section. CSF DESC 3 Routine 09/05/2021 2:49 PM Acute myeloid Results for this EST leukemia not procedure are i n having achieved the results remission section. CSF DESC 2 Routine 09/05/2021 2:49 PM Acute myeloid Results for this EST leukemia not procedure are i n having achieved the results remission section. CSF DESC 1 Routine 09/05/2021 2:49 PM Acute myeloid Results for this EST leukemia not procedure are i n having achieved the results remission section. LEUKEMIA LYMPHOMA Routine 09/05/2021 2:49 PM Acute myeloid Res ults for this SCREEN (FORMERLY EST leukemia not procedure a re in MALIGNANT CELL SCREEN) having achieved th e results remission section. HC SKY DIVER CULTURE Routine 09/05/2021 2:49 PM Acute myeloid Result s for this EST leukemia not procedure are i n having achieved the results remission section. HC PROTEIN, CSF Routine 09/05/2021 2:49 PM Acute myeloid Resul ts for this EST leukemia not procedure are i n having achieved the results remission section. HC GLUCOSE, CSF Routine 09/05/2021 2:49 PM Acute myeloid Resul ts for this EST leukemia not procedure are i n having achieved the results remission section. HC PARTIAL Routine 09/05/2021 8:27 AM Results f or this THROMBOPLASTIN TIME EST procedur e are in the results section. HC PROTHROMBIN TIME Routine 09/05/2021 8:27 AM Re sults for this EST procedure are i n the results section. HC PLATELET COUNT Routine 09/05/2021 8:27 AM Resu lts for this EST procedure are i n the results section. documented in this encounter Results Fluid Review Report (09/05/2021 4:49 PM EST) Component Value Ref Test Analysis Performed At Patholo gist Range Method Time Signature Fluid Review [id number] ? Location: [address] [place] [address] [place] MARX The signing pathologist has (i) examined the relevant preparation(s) for the [facility] specimen(s) and (ii) rendered or confirmed the diagnosis(es) . HOSPITAL LABORATORY . ? Fl uid Review DIAGNOSIS CEREBROSPINAL FLUID: No blasts are seen on the cytocentrifuge preparation. Electronically signed by: ?Eliseo Boogie MD Verified: ??09/06/2021 16:10 ??Hematopathologist Performed at: ??-[facility] Dept. of Pathology, [place], [place] ADDITIONAL STUDIES WBC/uL: <1 RBC/uL: ??2 10 cells counted on cytocentrifuge preparation. Few mature small and intermediate sized lymphocytes seen. CLINICAL INFORMATION Specimen: ? CSF Clinical Diagnosis: ? 61M; h/o AML with SKY DIVER disease Indication for Study: ?? IT chemo, evaluate CSF Specimen (Source) Anatomical Collection Method Collection Time Re ceived Time Location / / Volume Laterality 09/05/2021 4:49 PM EST Miroslava Pelayo QA TECH PATHOLOGY/CYTOLOGY ORDERABLE S Performing Organization Address City/State/[place] [address] [facility] [address] [address] XR Fluoro Guided Lumbar Puncture For IT Chemotherapy (09/05/2021 4:32 PM EST) Anatomical Region Laterality Modality L-spine N/A Radio Fluoroscopy Specimen (Source) Anatomical Location Collection Method / Collectio n Time Received Time / Laterality Volume Impressions 09/05/2021 5:20 PM EST Technically successful lumbar puncture under fluoroscopy. Intrathecal chemotherapy instilled b y the hematology/oncology fellow. I, Dr. blank, performed the procedure. I have personally reviewed the image(s) and the resident's interpretation and agree with the findings, Graham Blank at 09/05/2021 5:20 PM Thank you for letting us participate in the care of this patient. ??If you are a health care provider and have any questi ons regarding this report, please contact the number below. ??For patients who have questions please contact the health mall plant caretaker that requested your imaging first. ? Electronically signed by: Graham Blank [facility] ([phone]), at 09/05/2021 5:20 PM Narrative 09/05/2021 5:20 PM EST EXAMINATION: XR FLUORO GUIDED LUMBAR PUNCTURE FOR IT CHEMOTHERAPY CLINICAL HISTORY: AML with SKY DIVER disease COMPARISON: None Procedure:: After a discussion with the patient rega rding risks and benefits of this procedure, written and oral consent was obtained. The patient was placed prone on the fluo roscopy table. A time-out was conducted just before the start of the procedure to verify the correct patient and procedure, procedure location, and all relevant critical information. The location of the ??left L3-L4 interve rtebral space was localized with fluoroscopy. The patient was marked, and then prepped and draped in a sterile surgical fashion. The patient's skin was anesthetized using 1% lidocaine without epinephrine, 5 cc. A 20-gauge spinal nee dle was advanced into the subarachnoid space, which was confirmed with the retu rn of cerebrospinal fluid. ?? The cerebrospinal fluid was cloudy in co autumn initially and then cleared over time. 16cc of CSF was sent to lab for analysis in a total of 4 tubes. The oncology fellow then administere d the intrathecal chemotherapy per protocol. The stylet was then replaced and the spi nal needle was removed. There were no immediate complications. The patient was instructed to remain on their back for one hour. Procedure Note Graham Blank MD - 09/05/2021Formatti ng of this note might be different from the original. EXAMINATION: XR FLUORO GUIDED LUMBAR PUN CTURE FOR IT CHEMOTHERAPY CLINICAL HISTORY: AML with SKY DIVER disease COMPARISON: None Procedure:: After a discussion with the patient rega rding risks and benefits of this procedure, written and oral consent was obtained. The patient was placed prone on the fluo roscopy table. A time-out was conducted just before the start of the procedure to verify the correct patient and procedure, procedure location, and all relevant critical information. The location of the left L3-L4 intervert ebral space was localized with fluoroscopy. The patient was marked, and then prepped and draped in a sterile surgical fashion. The patient's skin was anesthetized using 1% lidocaine without epinephrine, 5 cc. A 20-gauge spinal nee dle was advanced into the subarachnoid space, which was confirmed with the retu rn of cerebrospinal fluid. The cerebrospinal fluid was cloudy in co autumn initially and then cleared over time. 16cc of CSF was sent to lab for analysis in a total of 4 tubes. The oncology fellow then administere d the intrathecal chemotherapy per protocol. The stylet was then replaced and the spi nal needle was removed. There were no immediate complications. The patient was instructed to remain on their back for one hour. IMPRESSION Technically successful lumbar puncture u nder fluoroscopy. Intrathecal chemotherapy instilled b y the hematology/oncology fellow. I, Dr. blank, performed the procedure. I have personally reviewed the image(s) and the resident's interpretation and agree with the findings, Graham Blank at 09/05/2021 5:20 PM Thank you for letting us participate in the care of this patient. If you are a health care provider and have any questi ons regarding this report, please contact the number below. For patients w ho have questions please contact the health mall plant caretaker that requested your imaging first. Miroslavaemil Pelayo QA TECH IMG FLUORO ORDERABLES CSF Cell Count (09/05/2021 2:49 PM EST) P athologist Signature Tube # Ct CSF 4 [facility] Nucleated CSF <1 0 - 5 /mcl [facility] Comment: If Nucleated CSF CT result [...] correlated with clinical condition. RBC CSF CT 2 /mcl [facility] Lymphocyte CSF 100 % [facility] Tot Diff Ct CSF 10 Cells [facility] Specimen (Source) Anatomical Collection Method Collection Time Re ceived Time Location / / Volume Laterality Cerebrospinal Fluid 09/05/2021 2:49 09/05 PM EST 4:47 PM EST Resulting Agency Comment Spec In Lab Miroslava Pelayo QA TECH BODY FLUIDS AND STOOLS ORDER BRINA Performing Organization Address City/[facility]/ZIP Code Phon e Number [address] CSF DESC 4 (09/05/2021 2:49 PM EST) Patholo gist Method Time Signature Tube Num CSF 4 [facility] #4 [facility] Color CSF #4 Colorless Colorless [facility] Appear CSF #4 Clear Clear [facility] Tot Vol CSF #4 4.0 mL [facility] Specimen (Source) Anatomical Collection Method Collection Time Re ceived Time Location / / Volume Laterality Cerebrospinal Fluid 09/05/2021 2:49 09/05 PM EST 4:42 PM EST Resulting Agency Comment Spec In Lab Miroslava Pelayo QA TECH BODY FLUIDS AND STOOLS ORDER BRINA Performing Organization Address City/[facility]/ZIP Code Phon e Number [address] CSF DESC 3 (09/05/2021 2:49 PM EST) Patholo gist Method Time Signature Tube Num CSF 3 [facility] #3 [facility] Color CSF #3 Colorless Colorless [facility] Appear CSF #3 Clear Clear [facility] Tot Vol CSF #3 3.0 mL [facility] Specimen (Source) Anatomical Collection Method Collection Time Re ceived Time Location / / Volume Laterality Cerebrospinal Fluid 09/05/2021 2:49 09/05 PM EST 4:42 PM EST Resulting Agency Comment Spec In Lab Miroslava Pelayo QA TECH BODY FLUIDS AND STOOLS ORDER BRINA Performing Organization Address City/[facility]/ZIP Code Phon e Number [address] CSF DESC 2 (09/05/2021 2:49 PM EST) Patholo gist Method Time Signature Tube Num CSF 2 [facility] Color CSF #2 Colorless Colorless [facility] Appear CSF #2 Clear Clear [facility] Tot Vol CSF #2 3.1 mL [facility] Specimen (Source) Anatomical Collection Method Collection Time Re ceived Time Location / / Volume Laterality Cerebrospinal Fluid 09/05/2021 2:49 09/05 PM EST 4:42 PM EST Resulting Agency Comment Spec In Lab Miroslava Pelayo QA TECH BODY FLUIDS AND STOOLS ORDER BRINA Performing Organization Address City/[facility]/ZIP Code Phon e Number [address] CSF DESC 1 (09/05/2021 2:49 PM EST) Patholo gist Method Time Signature Tube Num CSF [address] [facility] Color CSF #1 Colorless Colorless [facility] Appear CSF #1 Clear Clear [facility] Tot Vol CSF #1 4.0 mL [facility] Specimen (Source) Anatomical Collection Method Collection Time Re ceived Time Location / / Volume Laterality Cerebrospinal Fluid 09/05/2021 2:49 09/05 PM EST 4:47 PM EST Resulting Agency Comment Spec In Lab Miroslava Pelayo QA TECH BODY FLUIDS AND STOOLS ORDER BRINA Performing Organization Address City/[facility]/ZIP Code Phon e Number [address] Leukemia Lymphoma Screen Cerebrospinal Fluid (09/05/2021 2:49 PM EST) Patholo gist Method Time Signature LLS BF Type CSF [facility] Leukemia See Comment [facility] Lymphoma [facility] Comment: See Fluid Review Report [id number] under Hematopathology Reports. Specimen (Source) Anatomical Collection Method Collection Time Re ceived Time Location / / Volume Laterality Cerebrospinal Fluid 09/05/2021 2:49 09/05 PM EST 4:42 PM EST Resulting Agency Comment Spec In Lab Miroslava Pelayo APRN BODY FLUIDS AND STOOLS ORDER BRINA Performing Organization Address City/[facility]/ZIP [facility] Phon e Number [address] Glucose Level CSF (09/05/2021 2:49 PM EST) athologist Signature Glucose, CSF 57 mg/dL [facility] Comment: CSF at equilibrium equals appro ximately 60-80% of plasma glucose. Specimen (Source) Anatomical Collection Method Collection Time Re ceived Time Location / / Volume Laterality Cerebrospinal Fluid 09/05/2021 2:49 09/05 PM EST 4:42 PM EST Resulting Agency Comment Spec In Lab Miroslava Pelayo APRN BODY FLUIDS AND STOOLS ORDER BRINA Performing Organization Address City/[facility]/ZIP Code Phon e Number [address] Protein Level CSF (09/05/2021 2:49 PM EST) athologist Signature T Protein, CSF 30 15 - 45 [facility] Xanthochromia Neg [facility] Specimen (Source) Anatomical Collection Method Collection Time Re ceived Time Location / / Volume Laterality Cerebrospinal Fluid 09/05/2021 2:49 09/05 PM EST 4:42 PM EST Resulting Agency Comment Spec In Lab Miroslava Pelayo APRN BODY FLUIDS AND STOOLS ORDER BRINA Performing Organization Address City/[facility]/[place] [address] CSF Culture (09/05/2021 2:49 PM EST) Component Value Ref Test Analysis Performed At Patholo gist Range Method Time Signature Central No growth JIA Nervous ARASELI System [facility] LABORATORY Gram Stain Cytocentrifuge Gram Stain performed JIA No Neutrophils seen. [place] No microorganisms seen. [facility] Specimen (Source) Anatomical Collection Method Collection Time Re ceived Time Location / / Volume Laterality Cerebrospinal Fluid 09/05/2021 2:49 09/05 PM EST 4:59 PM EST Resulting Agency Comment Spec In Lab Miroslava Spivey Pierce QA TECH MICROBIOLOGY - GENERAL ORDER BRINA Performing Organization Address City/State/[place] [address] (ABNORMAL) Platelet count (09/05/2021 8:27 AM EST) athologist Signature Platelets 74 (L) 145 - 357 [facility] x10(3)/[facility] LABORATORY Plat Immature 4.8 0.0 - 7.4 [facility] % % [facility] Comment: Limitation of the Immature Platelet Frac tion (IPF)-May be less reliable when the platelet count is less than 04u490/u L due to statistical imprecision. The IPF [...] in a decreased state of production. References: [employer] The Clinical Value of the Immature Platelet Fraction (IPF) in Cell Recovery Document Number [id number] 01/2011 [employer] The Role of the Imm ature Platelet Fraction (IPF) in the Differential Diagnosis of Thrombocytopen ia, Document [id number] V05/07/30 P05 Specimen Anatomical Collection Method Collection Time Receive d Time (Source) Location / / Volume Laterality Blood 09/05/2021 8:27 AM 2 8:31 EST AM EST Resulting Agency Comment Spec In Lab Miroslava Pelayo QA TECH HEMATOLOGY ORDERABLES Performing Organization Address City/State/[place] [address] APTT (09/05/2021 8:27 AM EST) P athologist Signature PTT 31 25 - 37 sec [facility] Comment: The PTT is NOT appropriate for heparin m onitoring. Use the Anti-Xa level for heparin monitoring (HEP UFH) or LMWH mon itoring (HEP LMW). A PTT less than 37 seconds generally indicates adequate hem ostasis. Specimen Anatomical Collection Method Collection Time Receive d Time (Source) Location / / Volume Laterality Blood 09/05/2021 8:27 AM 2 8:31 EST AM EST Resulting Agency Comment Spec In Lab Miroslava Pelayo QA TECH HEMATOLOGY ORDERABLES Performing Organization Address City/[facility]/[place] [address] Prothrombin Time (09/05/2021 8:27 AM EST) P athologist Signature PT 11.0 9.4 - 12.5 [facility] LABORATORY INR 1.0 [facility] Comment: An INR <2.0 [...] (Source) Location / / Volume Laterality Blood 09/05/2021 8:27 AM 2 8:31 EST AM EST Resulting Agency Comment Spec In Lab Miroslava Pelayo QA TECH HEMATOLOGY ORDERABLES Performing Organization Address City/[facility]/[place] [address] documented in this encounter Visit Diagnoses Diagnosis 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 difficileComment: C. diffiicile 08/20/2021 testing positive 05/25/21. documented as of this encounter Care Teams Wire Photo Operator Relationship Specialty Start Date End Date Beatriz Maurice PA PCP - General Family Medicine 05/06/21 [address] [place] [address] documented as of this encounter
--- OUTSIDE RECORDS SUMMARY | 2022-02-14 11:16 | XMS_ITS | Encounter Summary ---
:1960 Author Organization [facility] Address [address] [place] [address] Care Team Providers Name Role Phone Beatriz Maurice Primary Care Provider Reason for Visit Reason Comments Follow-up Encounter Details Date Type Department Care Team Description 08/26/2021 Office Visit Hematology and Radha Osullivan MD [facility] DR HEMATOLOGY/[place] [address] Acute leukemia not Oncology [place] [facility] [place]roslava Pelayo SAND SYSTEM OPERATOR [facility] [address] HEMATOLOGY/[place] [address] having achieved [facility] Hayley Palmer [facility] DR HEMATOLOGY-[place] [address] remission (Primary [address] Dx) [place] [id number] Social History Tobacco Use Types Packs/Day Years [...] Sign Reading Time Taken Comments Blood Pressure 117/74 08/26/2021 8:29 AM EST Pulse 96 08/26/2021 8:29 AM EST Temperature 37 ??C (98.6 ??F) 08/26/2021 8:29 AM EST Respiratory Rate 20 08/26/2021 8:29 AM EST Oxygen Saturation 100% 08/26/2021 8:29 AM EST Inhaled Oxygen Concentration - - Weight 102.8 kg (226 lb 9.6 oz) 08/26/2021 8:29 AM EST Height 180.6 cm (5' 11.1) 08/26/2021 8:29 AM EST Body Mass Index 31.51 08/26/2021 8:29 AM EST documented in this encounter Progress Notes Parviz Osullivan MD - 08/26/2021 8:45 AM EST HEMATOLOGY/BMT CONSULTATION VISIT NOTE CHIEF COMPLAINT: Herber Iverson Jr. is a 61 y.o. male originally referred by Dr. Beatriz Maurice for evaluation of leukemia. He is seen in follow-up today. Data Review (From Recent Hospital discharge summary and the EMR) Admitted to [facility] 04/29/21 for leukocytosus. Discharged 04/30/21. 04/30/21 CBC - 40.7/8.1 ANC - 3,210 ALC - 12.85 AMC - 13.660 LDH - 655 COVIC-19 - NEG 05/06/21 admission for likely AML BM Bx - >95% cellular wit >90% myeloblasts CG - normal male karyotype NGS - + mutations in NPM1, FLT3 ??ITD and DNM3TA 05/08/21 D1 7&3 + midostauren induction 105/21 Day +14 BM Bx - hypocellular, <5% blasts 05/26/21 Partial bowel resection for toxic megacolon [...] of persistent disease but low blast count. 08/08/21 Discharged after reinduction with gilteritinib and venetoclax and initial clearance of PATCH WASHER leukemia. 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 He is now at day approximately +26 of C1 of venetoclax plus gilteritinib therapy (day 1 ~07/31/2021). His most recent LP was 2 weeks ago and showed no evidence of disease. Has beenstaying at home. Still using a walker - LE strength still down. Cut his tongue on a taco - bled for approximately 10 minutes. Doing his daily PT. Doing some of the cooking. Doing all self care. 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 Social - has a girlfriend and his boss Al as support. FH F - at ~70 of lung cancer - wsas a heavy smoker M - alive at 78 - no known health issues Siblings - No full siblings. 1/2 sister of AIDS, 1/2 brother is 51 - health unknown REVIEW OF SYSTEMS Constitutional --Energy level: improving slowly --Pain: Paresthesias in lower extremities unchanged --Fevers/chills/sweats: [...] DAILY ??? Colostomy Belt (Ostomy Belt Medium) [facility] Dispense 1 Sensura Flako Belt #[id number] per month. ??? enoxaparin (LOVENOX) 100 mg, Subcutaneous, DAILY ??? famotidine (PEPCID) 40 mg, Oral, DAILY ??? flecainide (TAMBOCOR) 50 mg, Oral, 2 TIMES DAILY ??? fluconazole (DIFLUCAN) 400 mg, Oral, DAILY ??? gabapentin (NEURONTIN) 300 mg, Oral, 2 TIMES DAILY ??? gilteritinib (XOSPATA) 120 mg, Oral, DAILY, Call clinic before starting medication. ??? gilteritinib (XOSPATA) 120 mg, Oral, DAILY, [...] Misc Dispense 2 boxes (10/box) of Sensura [place] Soft Convex One-piece Pouch #[id number] month. ??? Ostomy Supplies Misc Dispense 2 boxes (20/box) of Brava Elastic Barrier strips #[id number] per month. ??? Ostomy Supplies Misc Dispense [...] Oral, 2 TIMES DAILY ??? venetoclax (VENCLEXTA) 200 mg, Oral, DAILY, Take with food and a large glass of water. Call clinic before starting medication. ALLERGIES/ADR Allergies Allergen Reactions ??? Other [Unclassified Drug] Other (See Comments) Artificial Sweetners-lightheadedness, dizziness ??? Metoprolol heart skips a beat PHYSICAL EXAM VITAL SIGNS: Blood pressure 117/74, pulse 96, temperature 37 ??C (98.6 ??F), temperature source Temporal, resp. rate 20, height 180.6 cm (5' 11.1), weight 102.8 kg (226 lb 9.6 oz), SpO2 100 %. GENERAL: Herber Iverson Jr. is a mildly chronically ill-appearing 61 y.o. male in no acute distress. He is using a walker today. ENT: Sinuses non-tender. Oropharynx with white coating on tongue.. No masses. There is a small lesion on the upper surface of his tongue consistent with the laceration he describes. It does not appear to be an infection and is not actively bleeding. ENDOCRINE: No thyromegaly palpated. CARDIOVASCULAR: Heart with regular rate and rhythm without S3,S4 or murmurs. No cyanosis or peripheral edema. PULMONARY: Lungs are clear to auscultation without rales, rhonchi or wheezing. GASTROINTESTINAL: Abdomen soft and non-tender without palpable masses. MUSCULOSKELETAL: Neck supple with full ROM. No spine or CVA tenderness. SKIN: No rashes or petechiae. Few small bruises. LYMPH: none NEUROLOGICAL: Alert and oriented to person, place and time. LABORATORY Recent Results (from the past 72 hour(s)) Comprehensive metabolic panel (non-fasting) Result Value Ref Range Glucose Lvl 119 65 - 199 mg/dL BUN 25 (H) 10 - 20 mg/dL Creatinine 1.05 0.80 - 1.50 mg/dL Sodium 137 135 - 145 mmol/L Potassium 4.2 3.5 - 5.0 mmol/L Chloride 109 (H) 98 - 107 mmol/L CO2 18 (L) 22 - 31 mmol/L Anion Gap 10 5 - 15 mmol/L Calcium 8.8 8.5 - 10.5 mg/dL Total Protein 7.1 6.1 - 8.0 g/dL Albumin 3.8 3.2 - 5.2 g/dL AST 34 0 - 39 unit/L ALT 35 0 - 55 unit/L Alk Phos 138 (H) 40 - 130 unit/L Total Bilirubin <0.2 (L) 0.2 - 1.3 mg/dL Estimated GFR 76 >=60 mL/min/1.73 m?? Prothrombin Time Result Value Ref Range PT 10.9 9.4 - 12.5 sec INR 1.0 Platelet count Result Value Ref Range Platelets 36 (L) 145 - 357 x10(3)/mcL Plat Immature % 2.7 0.0 - 7.4 % APTT Result Value Ref Range PTT 28 25 - 37 sec Hemogram Result Value Ref Range WBC 1.0 (CRIT) 4.0 - 9.5 x10(3)/mcL RBC 1.67 (L) 4.58 - 5.54 x10(6)/mcL Hemoglobin 5.2 (CRIT) 13.7 - 16.5 g/dL Hematocrit 15.2 (L) 40.5 - 48.5 % MCV 91.0 82.9 - 93.1 fL MCH 31.1 27.5 - 32.1 pg MCHC 34.2 32.0 - 35.7 g/dL Platelets 36 (L) 145 - 357 x10(3)/mcL RDWSD 48.5 (H) 36.0 - 45.0 fL RDWCV 15.9 (H) 11.4 - 13.8 % MPV 11.2 7.6 - 12.9 fL nRBC Abs Auto 0.040 (H) 0.000 - 0.000 x10(3)/mcL Antibody screen Result Value Ref Range Expires at 2359 on: 08/29/2021 ABORH Recheck Status Result Value Ref Range ABORH Type Recheck Completed RADIOLOGY - None ASSESSMENT & PLANS 1. Flt3+ AML --Herber initially achieved CR with 7&3 + midostauren but subsequently relapsed. --He is now having what appears to be a good initial response to venetoclax plus gilteritinib with clearing of his PATCH WASHER leukemia when last tested 2 weeks ago and decreased blasts noticed on his most recent bone marrow biopsy on August 06. --Overall goal is to get Herber to an allogeneic stem cell transplant as soon as remission can be achieved and transplant can be arranged. --Now s/p 4 LPs showing FELY (3 passed clear). Plan is for total of 5-6 passed clear. 2. Allo HSCT --Because Herber is POS for Flt3 mutation, he is at high risk for relapse and has an overall poor prognosis. Current plan is to get him to allo H SCT. No apparent contraindications. Donor search in progress. 3. S/P Colectomy --Herber's colostomy has been functioning well so far will need f/u with Surgery - not yet scheduled. 4. Counseling --Reviewed progress to date and plans for moving forward. 5. Summary of Plans --Counts stable on current regimen and tolerating well. Continue venetoclax plus Xospata. --Herber will receive 2 units of packed red blood cells today. No platelet transfusions required today. --IT chemo today as planned. He has now had 4 FELY LPs. If clear today, then can do 2 more next 2 weeks. --We will clarify status of allogeneic transplant preparation with qualitative field coordinator. In addition to routine pretransplant testing Herber will also need repeat bone marrow biopsy to assess his disease response. --RTC 1 and 2 weeks for labs, providers, Infusion Room and IT chemo. --Restaging BM Bx week of 09/09 or 09/16 --Zospadaa refilled --Herber to call any time if not feeling well or questions or concerns arise. Parviz Osullivan MD Section of Hematology [facility] documented in this encounter Miscellaneous Notes Addendum Note - Parviz Osullivan MD - 08/26/2021 8:45 AM EST Addended by: PARVIZ OSULLIVAN on: 08/27/2021 01:00 PM Modules accepted: Orders documented in this encounter Plan of Treatment Upcoming Encounters Date Type Specialty Care Team Description 02/18/2022 Infusion Hematology and Oncology 02/21/2022 Infusion Hematology and Oncology 02/24/2022 Appointment Hematology and Oncology 02/24/2022 Office Visit Hematology and Oncology Parviz Osullivan MD [facility] DR HEMATOLOGY/[place] [address] Miroslava Pelayo APRN [facility] DR HEMATOLOGY/[place] [address] 02/24/2022 Office Visit Wound Care 02/24/2022 Appointment Hematology and Oncology 02/26/2022 Office Visit Neurology Leni Bustamante MD [facility] ER DR NEUROLOGY DEPT. [place], [place] [address] (Wo rk) documented as of [...] documented as of this encounter Care Teams After School Program Coordinator Relationship Specialty Start Date End Date Beatriz Maurice PA PCP - General Family Medicine 05/06/21 [address] [place] [address] documented as of this encounter
--- OUTSIDE RECORDS SUMMARY | 2022-02-14 11:16 | XMS_ITS | Encounter Summary ---
:1960 Author Organization [facility] Address [address] [place] [address] Care Team Providers Name Role Phone Beatriz Maurice Primary Care Provider Encounter Details Date Type Department Care Team Description 08/28/2021 Orders Only Hematology and Oncology at [facility], Miroslava Spivey APRN [facility] Catie narvaez HEMATOLOGY/[place] [address] DEPT. [phone] [place], [place] [address] (Wo rk) Social History Tobacco [...] MD [facility] DR HEMATOLOGY/[place] [address] Miroslava Pelayo APRN [facility] HEMATOLOGY/[place] [address] 02/24/2022 Office Visit Wound Care 02/24/2022 Appointment Hematology and Oncology 02/26/2022 Office Visit Neurology Leni Bustamante MD [facility] NEUROLOGY DEPT. [place], [place] [address] (Wo rk) documented as of this encounter Visit Diagnoses Not on filedocumented in this encounter Additional Health Concerns Infection Onset Date Last Indicated Resolved Time History of C. difficileComment: C. diffiicile 08/20/2021 testing positive 05/25/21. documented as of this encounter Care Teams Label Tacker Relationship Specialty Start Date End Date Beatriz Maurice PA PCP - General Family Medicine 05/06/21 [address] [place] [address] documented as of this encounter
--- OUTSIDE RECORDS SUMMARY | 2022-02-14 11:16 | XMS_ITS | Encounter Summary ---
:1960 Author Organization [facility] Address [address] [facility] [place] [address] Care Team Providers Name Role Phone Beatriz Maurice Primary Care Provider Encounter Details Date Type Department Care Team Description 09/09/2021 Hospital Encounter [place] [facility] [place], Acute myeloid [address] [place] [address] Kj Blankenship MD leukemia not having [place], [place] [facility] [place] [phone] Center [phone] [place] [address] Social History Tobacco Use Types Packs/Day Years [...] Dispense 2 boxes ( 20 each 11 08/20/ 022 10/box) of Adapt Barrier rings #7805 per month. Ostomy Supplies Dispense 1 bottle of 28.3 g 5 08/20/2021 Powder Adapt stoma powder #7906 every other month. Ostomy Supplies [facility] Dispense 2 boxes 20 each 2 (10/box) of Sensura Carolina Soft Convex One-piece Pouch #14526 per month. Ostomy Supplies [facility] Dispense 2 boxes 40 each 2 (20/box) of Brava Elastic Barrier strips #[id number] per month. Ostomy Supplies [facility] Dispense 1 box (50/box) 50 each of [...] each 2 12/13/2021 (Ostomy Belt Medium) Belt #6109 per month. [facility] enoxaparin (Lovenox) Inject 1 mL 30 mL [...] documented as of this encounter Progress Notes Yolette Solano APRN - 09/09/2021 7:43 AM ESTSummary: Pre-procedure note for LP for IT chemo infusion Images from the original note were not included. Neuroradiology FOCUSED H&P and PRE-PROCEDURE NOTE: PCP: LEISA Munguia Referring Provider: Kj Azar MD Planned Procedure: Fluoro-guided lumbar puncture for It chemo infusion Procedure Indication: AML with STRUCTURAL ANALYST involvement Procedure request received through Interventional Radiology eDH order queue. Order Questions Answers Where will study be performed? [facility] Radiology [120] Reason for exam and clinical history: AML w/ STRUCTURAL ANALYST involvement Has the patient had a previous lumbar surgery? No Is the patient being sent to the lab for a blood draw after lumbar puncture? Yes Is an opening pressure required? No Is a closing pressure required? No Does this patient have any known bleeding risk factors or conditions that places them at higher riskfor a procedural hemorrhage? Anticoagulant therapy Which medication? Low Molecular Weight Heparin Presenting Diagnosis/ Complaint: Herber Iverson Jr. is a 61 y.o. male with a h/o AML with STRUCTURAL ANALYST involvement. He is currently undergoing IT chemotherapy treatment. Past Medical/Surgical History: Patient Active Problem List Diagnosis Code ??? Acute leukemia C95.00 ??? Clostridium difficile colitis A04.72 ??? 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 AML (acute myeloblastic leukemia) C92.00 Medications: Current Outpatient Medications on File Prior to Encounter Medication Sig Dispense Refill ??? sulfamethoxazole-trimethoprim DS [...] boxes ( 10/box) of Adapt Barrier rings #2635 per month. 20 each 11 ??? Colostomy Belt (Ostomy Belt Medium) Misc Dispense 1 Sensura Carolina Belt #4237 per month. 1 each 11 ??? Ostomy Supplies Powder Dispense 1 bottle of Adapt stoma powder #7906 every other month. 28.3 g 5 ??? Ostomy Supplies Misc Dispense 2 boxes (10/box) of Sensura [place] Soft Convex One-piece Pouch #35293afh month. 20 each 11 ??? Ostomy Supplies Misc Dispense 2 boxes (20/box) of Brava Elastic Barrier strips #[id number] per month. 40 each 11 ??? Ostomy [...] facility-administered medications on file prior to encounter. Allergies: Other [unclassified drug] and Metoprolol Labs: Lab Results Component Value Date PLATELET 74 (L) 09/05/2021 PLATELET 68 (L) 09/05/2021 INR 1.0 09/05/2021 ALKPHOS 129 09/05/2021 AST 36 09/05/2021 ALBUMIN 3.8 09/05/2021 BILIDIR 0.1 08/08/2021 BILITOT <0.2 (L) 09/05/2021 ALT 33 09/05/2021 Imaging: Fluoro LP for IT chemo 09/05/2021 Physical Exam: Pending (to be performed in angio the day of procedure) Assessment: 61 y.o. male with AML undergoing chemotherapy treatment with IT chemo regimen. Plan: - Will proceed with fluoro-guide LP for CSF collection and IT chemo infusion procedure - Labs to be obtained on day of procedure: Platelets/Coags - Meds to hold: Lovenox to be held for 12 hours prior to procedure - Position:Prone - Antibiotic prophylaxis: None - Sedation: Local - Consent: To be obtained on the day of the procedure Yolette Solano, MSN, CENTRAL SUPPLY WORKER 09/09/2021 7:43 AM documented in this encounter Plan of Treatment Upcoming Encounters Date Type Specialty Care Team Description 02/18/2022 Infusion Hematology and Oncology 02/21/2022 Infusion Hematology and Oncology 02/24/2022 Appointment Hematology and Oncology 02/24/2022 Office Visit Hematology and Oncology Parviz Modi MD [facility] DR HEMATOLOGY/[place] [address] Miroslava Pelayo APRN [facility] [address] HEMATOLOGY/[place] [address] 02/24/2022 Office Visit Wound Care 02/24/2022 Appointment Hematology and Oncology 02/26/2022 Office Visit Neurology Leni Bustamante MD [facility] ER DR NEUROLOGY DEPT. [place], [place] [address] (Wo rk) documented as of this encounter Procedures Procedure Name Priority Date/Time Associated Comments Diagnosis XR FLUORO GUIDED Routine 09/09/2021 2:08 PM Acute myeloid Resu lts for this LUMBAR PUNCTURE FOR EST leukemia not having p rocedure are in IT CHEMOTHERAPY achieved remission the re sults section. HC CSF CELL CT W/ Routine 09/09/2021 1:45 PM Acute myeloid DIFFERENTIAL EST leukemia not having achieved remission CSF CELL COUNT Routine 09/09/2021 1:45 PM Acute myeloid Result s for this EST leukemia not having procedur e are in achieved remission the resul ts section. CSF DESC 4 Routine 09/09/2021 1:45 PM Acute myeloid Results for this EST leukemia not having procedur e are in achieved remission the resul ts section. CSF DESC 3 Routine 09/09/2021 1:45 PM Acute myeloid Results for this EST leukemia not having procedur e are in achieved remission the resul ts section. CSF DESC 2 Routine 09/09/2021 1:45 PM Acute myeloid Results for this EST leukemia not having procedur e are in achieved remission the resul ts section. CSF DESC 1 Routine 09/09/2021 1:45 PM Acute myeloid Results for this EST leukemia not having procedur e are in achieved remission the resul ts section. LEUKEMIA LYMPHOMA Routine 09/09/2021 1:45 PM Acute myeloid Res ults for this SCREEN (FORMERLY EST leukemia not having proc edure are in MALIGNANT CELL achieved remission the res ults SCREEN) section. HC CONC. FOR Routine 09/09/2021 1:45 PM Acute myeloid Results for this INFECTIOUS AGENTS EST leukemia not having pro cedure are in achieved remission the resul ts section. HC PROTEIN, CSF Routine 09/09/2021 1:45 PM Acute myeloid Resul ts for this EST leukemia not having procedur e are in achieved remission the resul ts section. HC GLUCOSE, CSF Routine 09/09/2021 1:45 PM Acute myeloid Resul ts for this EST leukemia not having procedur e are in achieved remission the resul ts section. FLUID REVIEW REPORT Routine 09/09/2021 1:39 PM Re sults for this EST procedure are i n the results section. documented in this encounter Results XR Fluoro Guided Lumbar Puncture For IT Chemotherapy (09/09/2021 2:08 PM EST) Anatomical Region Laterality Modality L-spine N/A Radio Fluoroscopy Specimen (Source) Anatomical Location Collection Method / Collectio n Time Received Time / Laterality Volume Impressions 09/09/2021 2:42 PM EST Technically successful fluoroscopic guided lumbar puncture as detailed above Resident: Marianne Lemus M.D . I have personally reviewed the image(s) and the resident's interpretation and agree with the findings, Yolette Solano at 09/09/2021 2:42 PM Thank you for letting us participate in the care of this patient. ??If you are a health care provider and have any questi ons regarding this report, please contact the number below. ??For patients who have questions please contact the health regular senior care provider that requested your imaging first. ? 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 The patient was positioned prone, left a nterior oblique. Under fluoroscopic guidance, the ??L4 level was identified and the site was marked. The area was prepped and draped using maximal sterile technique. The site was anesthetized with 1% buffered lidocaine. Under fluoro scopic guidance a 20-gauge spinal needle was advanced into the thecal sac. Clear CSF was obtained. Opening CSF pressure was not obtained. Then ??12cc of clear C SF fluid was removed and sent to the laboratory as requested by the ordering provider in the proper tubes. At this point, the hematology/oncology t eam completed there are portion of the procedure and administered the intrathec al chemotherapy. All needles were removed at the end of t he procedure. Fluoroscopic time: ??0.07 minutes Procedure Note Yolette Solano, HEYDI - 09/09/2021For matting of this note might be different from the original. 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 The patient was positioned prone, left a nterior oblique. Under fluoroscopic guidance, the L4 level was identified an d the site was marked. The area was prepped and draped using maximal sterile technique. The site was anesthetized with 1% buffered lidocaine. Under fluoro scopic guidance a 20-gauge spinal needle was advanced into the thecal sac. Clear CSF was obtained. Opening CSF pressure was not obtained. Then 12cc of clear CSF fluid was removed and sent to the laboratory as requested by the ordering provider in the proper tubes. At this point, the hematology/oncology t eam completed there are portion of the procedure and administered the intrathec al chemotherapy. All needles were removed at the end of t he procedure. Fluoroscopic time: 0.07 minutes IMPRESSION Technically successful fluoroscopic guid ed lumbar puncture as detailed above Resident: Marianne Lemus M.D . I have personally reviewed the image(s) and the resident's interpretation and agree with the findings, Yolette Solano at 09/09/2021 2:42 PM Thank you for letting us participate in the care of this patient. If you are a health care provider and have any questi ons regarding this report, please contact the number below. For patients w ho have questions please contact the health regular senior care provider that requested your imaging first. Miroslava Pelayo CENTRAL SUPPLY WORKER IMG FLUORO ORDERABLES CSF Cell Count (09/09/2021 1:45 PM EST) P athologist Signature Tube # Ct CSF 4 [facility] Nucleated CSF 2 0 - 5 /mcl [facility] Comment: If Nucleated CSF CT result [...] correlated with clinical condition. RBC CSF CT 5 /mcl [facility] Lymphocyte CSF 98 % [facility] Macrophage CSF 2 % [facility] Ependymal CSF Present [facility] Tot Diff Ct CSF 200 Cells [facility] Specimen (Source) Anatomical Collection Method Collection Time Re ceived Time Location / / Volume Laterality Cerebrospinal Fluid 09/09/2021 1:45 09/09 PM EST 2:26 PM EST Resulting Agency Comment Spec In Lab Miroslava Pelayo APRN BODY FLUIDS AND STOOLS ORDER BRINA Performing Organization Address City/State/[place] [address] CSF DESC 4 (09/09/2021 1:45 PM EST) Patholo gist Method Time Signature Tube Num CSF 4 [facility] #4 [facility] Color CSF #4 Colorless Colorless [facility] Appear CSF #4 Clear Clear [facility] Tot Vol CSF #4 2.5 mL [facility] Specimen (Source) Anatomical Collection Method Collection Time Re ceived Time Location / / Volume Laterality Cerebrospinal Fluid 09/09/2021 1:45 09/09 PM EST 2:26 PM EST Resulting Agency Comment Spec In Lab Miroslava Pelayo CENTRAL SUPPLY WORKER BODY FLUIDS AND STOOLS ORDER BRINA Performing Organization Address City/[facility]/ZIP Code Phon e Number [address] CSF DESC 3 (09/09/2021 1:45 PM EST) [facility] [employer] Method Time Signature Tube Num CSF 3 [facility]3 [facility] Color CSF #3 Colorless Colorless [facility] Appear CSF #3 Clear Clear [facility] Tot Vol CSF #3 2.7 mL [facility] Specimen (Source) Anatomical Collection Method Collection Time Re ceived Time Location / / Volume Laterality Cerebrospinal Fluid 09/09/2021 1:45 09/09 PM EST 2:26 PM EST Resulting Agency Comment Spec In Lab Miroslava Pelayo APRN BODY FLUIDS AND STOOLS ORDER BRINA Performing Organization Address City/State/[place] [address] CSF DESC 2 (09/09/2021 1:45 PM EST) [facility] [employer] Method Time Signature Tube Num CSF 2 [facility] Color CSF #2 Colorless Colorless [facility] Appear CSF #2 Clear Clear [facility] Tot Vol CSF #2 2.8 mL [facility] Specimen (Source) Anatomical Collection Method Collection Time Re ceived Time Location / / Volume Laterality Cerebrospinal Fluid 09/09/2021 1:45 09/09 PM EST 2:26 PM EST Resulting Agency Comment Spec In Lab Miroslava ePlayo CENTRAL SUPPLY WORKER BODY FLUIDS AND STOOLS ORDER BRINA Performing Organization Address City/[facility]/[place] [address] CSF DESC 1 (09/09/2021 1:45 PM EST) Patholo gist Method Time Signature Tube Num CSF 1 [facility] #1 [facility] Color CSF #1 Colorless Colorless [facility] Appear CSF #1 Clear Clear [facility] Tot Vol CSF #1 3.0 mL [facility] Specimen (Source) Anatomical Collection Method Collection Time Re ceived Time Location / / Volume Laterality Cerebrospinal Fluid 09/09/2021 1:45 09/09 PM EST 2:26 PM EST Resulting Agency Comment Spec In Lab Miroslava Pelayo CENTRAL SUPPLY WORKER BODY FLUIDS AND STOOLS ORDER BRINA Performing Organization Address City/[facility]/[place] [address] CSF Culture (09/09/2021 1:45 PM EST) Component Value Ref Test Analysis Performed At Patholo gist Range Method Time Signature Central No growth [facility] Gram Stain Cytocentrifuge Gram Stain performed [facility] No Neutrophils seen. BOYCE No microorganisms seen. [facility] Specimen (Source) Anatomical Collection Method Collection Time Re ceived Time Location / / Volume Laterality Cerebrospinal Fluid 09/09/2021 1:45 09/09 PM EST 2:38 PM EST Resulting Agency Comment Spec In Lab Miroslava Pelayo CENTRAL SUPPLY WORKER MICROBIOLOGY - GENERAL ORDER BRINA Performing Organization Address City/[facility]/[place] [address] Protein Level CSF (09/09/2021 1:45 PM EST) P athologist Signature T Protein, CSF 33 15 - 45 [facility] mg/dL [facility] Xanthochromia Slight [facility] Specimen (Source) Anatomical Collection Method Collection Time Re ceived Time Location / / Volume Laterality Cerebrospinal Fluid 09/09/2021 1:45 09/09 PM EST 2:26 PM EST Resulting Agency Comment Spec In Lab Miroslava Pelayo APRN BODY FLUIDS AND STOOLS ORDER BRINA Performing Organization Address City/[facility]/ZIP Code Phon e Number [address] Glucose Level CSF (09/09/2021 1:45 PM EST) P athologist Signature Glucose, CSF 62 mg/dL [facility] Comment: CSF at equilibrium equals appro ximately 60-80% of plasma glucose. Specimen (Source) Anatomical Collection Method Collection Time Re ceived Time Location / / Volume Laterality Cerebrospinal Fluid 09/09/2021 1:45 09/09 PM EST 2:26 PM EST Resulting Agency Comment Spec In Lab Miroslava Pelayo APRN BODY FLUIDS AND STOOLS ORDER BRINA Performing Organization Address [facility]/ZIP Code Phon e Number [address] Leukemia Lymphoma Screen Cerebrospinal Fluid (09/09/2021 1:45 PM EST) [facility] gist Method Time Signature LLS BF Type CSF [facility] Leukemia See Comment [facility] Comment: See Fluid Review Report [id number] under Hematopathology Reports. Specimen (Source) Anatomical Collection Method Collection Time Re ceived Time Location / / Volume Laterality Cerebrospinal Fluid 09/09/2021 1:45 09/09 PM EST 2:26 PM EST Resulting Agency Comment Spec In Lab Miroslava Pelayo APRN BODY FLUIDS AND STOOLS ORDER BRINA Performing Organization Address City/[facility]/ZIP Code Phon e Number [address] Fluid Review Report (09/09/2021 1:39 PM EST) Component Value Ref Test Analysis Performed At Patholo gist Range Method Time Signature Fluid Review [id number] ? Location: 3T JIA Report ARASELI The signing pathologist has (i) examined the relevant preparation(s) for the [facility] specimen(s) and (ii) rendered or confirmed the diagnosis(es) . HOSPITAL LABORATORY . ? Fl uid Review DIAGNOSIS CEREBROPSINAL FLUID: No blasts are microscopically appreciated. Electronically signed by: ?Colby Coyne MD Verified: ??09/09/2021 17:52 ??Hematopathologist Performed at: ??-[facility] [place]. [place], [place], [place] ADDITIONAL STUDIES WBC/uL: 2 RBC/uL: 5 200 cells counted on cytocentrifuge preparation. Small mature lymphocytes and macrophages seen. CLINICAL INFORMATION Specimen: ? CSF Clinical Diagnosis: ? 61M; h/o AML with STRUCTURAL ANALYST disease Indication for Study: ?? IT chemo, eval csf Specimen (Source) Anatomical Collection Method Collection Time Re ceived Time Location / / Volume Laterality 09/09/2021 1:39 PM EST Miroslava Pelayo CENTRAL SUPPLY WORKER PATHOLOGY/CYTOLOGY ORDERABLE S Performing Organization Address City/State/ZIP Code Phon [place] [address] documented in this encounter Visit Diagnoses Diagnosis 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 difficileComment: C. diffiicile 08/20/2021 testing positive 05/25/21. documented as of this encounter Care Teams Supervisor [employer] Relationship Specialty Start Date End Date Beatriz Maurice PA PCP - General Family Medicine 05/06/21 [address] [place] [address] documented as of this encounter
--- OUTSIDE RECORDS SUMMARY | 2022-02-14 11:16 | XMS_ITS | Encounter Summary ---
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 [phone] [place], [place] [address] Social History Tobacco Use Types [...] documented as of this encounter Progress Notes Miroslava Pelayo, HEYDI - 09/05/2021 9:30 AM EST HEMATOLOGY/BMT CONSULTATION VISIT NOTE CHIEF COMPLAINT: Angelica Iverson Jr. is a 61 y.o. male originally referred by Dr. Beatriz Maurice for evaluation of leukemia. He is seen in follow-up today. Data Review (From recent Hospital discharge summary and the EMR) Admitted to [facility] 04/29/21 for leukocytosus. Discharged 04/30/21. 04/30/21 [...] gilteritinib and venetoclax and initial clearance of CONTACT ASSEMBLER leukemia. 08/12/21 LP - FLEY 08/26/21 LP - pending ORIGINAL HISTORY OF PRESENT ILLNESS Angelica Iverson [...] abnormal counts and he was admitted to [facility]. Other than fatigue has had no fevers, chills or drenching sweats. Has lost a few lbs - <10. Appetite has been down recently. No bleeding or bruising. Was very actived when younger - played a lot of sports into his 40's. 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 He is now at day approximately +36 of C1 of venetoclax plus gilteritinibtherapy (day 1 ~07/31/2021). In addition, he continue to receive intrathecal chemotherapy for CONTACT ASSEMBLER disease with a plan of 6 doses post clear. His first negative LP was 07/25/21. Since last seen ~ 1 week ago, Angelica reports feeling relatively well. He denies fevers, chills, infections or intercurrent illnesses. He remain on full prophylaxis. No abnormal bleeding or excessive bruising. He continues to exercise to regain strength and stamina. He uses a walker for stability. His legs are getting stronger. He continues to tolerate his oral chemotherapy without significant side effects. A bone marrow biopsy is upcoming to assess response and determine the timing of allo HSCT. 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 Social - has a girlfriend and his boss lA as support. FH No changes F - at ~70 of lung cancer - wsas a heavy smoker M - alive at 78 - no known health issues Siblings - No full siblings. 1/2 sister of AIDS, 1/2 brother is 51 - health unknown REVIEW OF SYSTEMS Constitutional --Energy level: improving slowly --Pain: Paresthesias in lower extremities [unchanged] --Fevers/chills/sweats: No --Unexpected weight loss or gain: No Eyes - No change in vision Ears, nose, throat - No change hearing, no oral or throat pain or thrush Cardiovascular --SOB: No --PICHARDO: 1 flight PICHARDO [improving] --chest pain: No Respiratory --Cough: No --SOB, PICHARDO: as above Gastrointestinal --Appetite: improved --Nausea/vomiting/diarrhea/constipation: intermittent mild waves of nausea/no vomiting Genitourinary --Dysuria or hematuria: No Musculoskeletal --Muscle pain or weakness: LE weakness improving with home exercises and ADLs --Joint pain or swelling: No Immune System [...] boxes ( 10/box) of [employer] Barrier rings #[id number] per month. ??? Ostomy Supplies Misc Dispense 2 boxes (10/box) of Sensura [place] Soft Convex One-piece Pouch #[id number] month. ??? Ostomy Supplies Misc Dispense 2 boxes (20/box) of Brava Elastic Barrier strips #[id number] per month. ??? Ostomy Supplies Misc Dispense [...] skips a beat PHYSICAL EXAM VITAL SIGNS: Oncology Vitals 09/05/2021 Weight (kg) 106.777 kg Weight (lb) 235 lb 6.4 oz Height 180.4 cm BSA (Calculated - sq m) 2.31 BMI (Calculated) 32.81 Temp 97.5 Temp src 101 Pulse 94 Heart Rate Source Monitor Resp 17 BP 126/77 BP Location Left arm Patient Position Sitting SpO2 98 Pain Level 0 GENERAL: Angelica Iverson Jr. is a mildly chronically ill-appearing 61 y.o. male in no acute distress. ENT: Sinuses non-tender. Oropharynx with clear without hyperemia, exudative plaques or lesions. ENDOCRINE: No thyromegaly palpated. CARDIOVASCULAR: Sinus tachycardia without S3,S4 or murmurs. No cyanosis or peripheral edema. PULMONARY: Lungs are clear to auscultation without rales, rhonchi or wheezing. GASTROINTESTINAL: Abdomen soft and non-tender without palpable masses or HSM. NABS MUSCULOSKELETAL: Neck supple with full ROM. No spine or CVA tenderness. SKIN: No rashes or petechiae. Healing bruises bilateral forearms. LYMPH: No paplable adenopathy NEUROLOGICAL: Alert and oriented to person, place and time. LABORATORY Results for ANGELICA IVERSON JR. ( ) as of 09/15/2021 19:00 Ref. Range 09/05/2021 08:27 WBC Latest Ref Range: 4.0 - 9.5 x10(3)/mcL 1.3 (CRIT) RBC Latest Ref Range: 4.58 - 5.54 x10(6)/mcL 2.12 (L) Hemoglobin Latest Ref Range: 13.7 - 16.5 g/dL 6.7 (L) Hematocrit Latest Ref Range: 40.5 - 48.5 % 20.1 (L) MCV Latest Ref Range: 82.9 - 93.1 fL 94.8 (H) MCH Latest Ref Range: 27.5 - 32.1 pg 31.6 MCHC Latest Ref Range: 32.0 - 35.7 g/dL 33.3 RDWSD Latest Ref Range: 36.0 - 45.0 fL 50.0 (H) RDWCV Latest Ref Range: 11.4 - 13.8 % 18.6 (H) Platelets Latest Ref Range: 145 - 357 x10(3)/mcL 68 (L) MPV Latest Ref Range: 7.6 - 12.9 fL 9.7 Plat Immature % Latest Ref Range: 0.0 - 7.4 % nRBC % Auto Latest Units: % 7.9 nRBC Abs Auto Latest Ref Range: 0.000 - 0.000 x10(3)/mcL 0.100 (H) Neutr Abs (ANC) Latest Ref Range: 1.70 - 6.10 x10(3)/mcL 0.65 (L) Neutrophils % Latest Units: % 51.2 Immature Gran % Latest Units: % 0.80 Lymphocytes % Latest Units: % 44.9 Monocytes % Latest Units: % 3.1 Eosinophils % Latest Units: % 0.0 Basophils % Latest Units: % 0.0 Zara Gran Abs Latest Ref Range: 0.00 - 0.04 x10(3)/mcL 0.01 Lymphocytes Abs Latest Ref Range: 0.9 - 3.2 x10(3)/mcL 0.6 (L) Monocyte Abs Latest Ref Range: 0.3 - 0.9 x10(3)/mcL 0.0 (L) Eosinophils Abs Latest Ref Range: 0.0 - 0.4 x10(3)/mcL 0.0 Basophils Abs Latest Ref Range: 0.0 - 0.1 x10(3)/mcL 0.0 Plat Estimate Unknown Decreased RBC Morphology Unknown Abnormal Microcytes Latest Units: /HPF 1-5 Polychromasia Latest Units: >5/HPF Present Tear Drop Cells Latest Units: /HPF 1-5 Giant Platelets Latest Units: /HPF Less than 1 PT Latest Ref Range: 9.4 - 12.5 sec 11.0 INR Unknown 1.0 PTT Latest Ref Range: 25 - 37 sec 31 Sodium Latest Ref Range: 135 - 145 mmol/L 138 Potassium Latest Ref Range: 3.5 - 5.0 mmol/L 4.5 Chloride Latest Ref Range: 98 - 107 mmol/L 108 (H) CO2 Latest Ref Range: 22 - 31 mmol/L 19 (L) Anion Gap Latest Ref Range: 5 - 15 mmol/L 11 BUN Latest Ref Range: 10 - 20 mg/dL 22 (H) Creatinine Latest Ref Range: 0.80 - 1.50 mg/dL 1.08 Estimated GFR Latest Ref Range: >=60 mL/min/1.73 m?? 74 Calcium Latest Ref Range: 8.5 - 10.5 mg/dL 9.3 Glucose Lvl Latest Ref Range: 65 - 199 mg/dL 133 Total Protein Latest Ref Range: 6.1 - 8.0 g/dL 7.4 Albumin Latest Ref Range: 3.2 - 5.2 g/dL 3.8 Total Bilirubin Latest Ref Range: 0.2 - 1.3 mg/dL <0.2 (L) Alk Phos Latest Ref Range: 40 - 130 unit/L 129 AST Latest Ref Range: 0 - 39 unit/L 36 ALT Latest Ref Range: 0 - 55 unit/L 33 ABORh Type Unknown O Pos AB Screen Interp Unknown Negative Expires at 2359 on: Unknown 09/08/2021 T&S only valid at Unknown [facility] Hosp ABORH Type Recheck Unknown Completed RADIOLOGY - No new images reviewed today ASSESSMENT & PLANS 1. Flt3+ AML --Angelica initially achieved CR with 7&3 + midostauren but subsequently relapsed. --He is now having what appears to be a good initial response to venetoclax plus gilteritinib with clearing of his CONTACT ASSEMBLER leukemia --Repeat BM examination scheduled for later this month --Overall goal is to get Angelica to an allogeneic stem cell transplant as soon as remission can be achieved and transplant can be arranged. --Continue with twice weekly LP with IT chemo until-6 passed clear. 2. Allo HSCT --Because Angelica is positive for Flt3 mutation, he is at high risk for relapse and has an overall poorprognosis. Current plan is to get him to allo HSCT. No apparent contraindications. Donor search in progress. 3. S/P Colectomy --Angelica's colostomy has been functioning well --F/u colorectal surgery pending 4. Counseling --Reviewed progress to date and plans for moving forward. 5. Summary of Plans --Counts stable on current regimen and tolerating well. Continue venetoclax plus Xospata. --Angelica will receive 2 units of packed red blood cells today. No platelet transfusions required today. --IT chemo today as planned. --Repeat bone marrow biopsy to assess his disease response. --RTC 1 week --Angelica to call any time if not feeling well or questions or concerns arise. Miroslava Pelayo, MSN, DIRECTOR OF AVIATION Nurse practitioner Section of Hematology [facility] documented in this encounter Plan of Treatment Upcoming Encounters Date Type Specialty Care Team Description 02/18/2022 Infusion Hematology and Oncology 02/21/2022 Infusion Hematology and Oncology 02/24/2022 Appointment Hematology and Oncology 02/24/2022 Office Visit Hematology and Oncology Parviz Modi MD [facility] DR HEMATOLOGY/[place] [address] Miroslava Pelayo APRN [facility] DR HEMATOLOGY/[place] [address] 02/24/2022 Office Visit Wound Care 02/24/2022 Appointment Hematology and Oncology 02/26/2022 Office Visit Neurology Leni Bustamante MD [facility] NEUROLOGY DEPT. [place], [place] [address] (Wo rk) documented as of this encounter Visit Diagnoses Diagnosis Acute myeloid leukemia not having achiev ed remission S/P partial resection of colon Other postprocedural status Debility Debility, unspecified Anemia in neoplastic disease documented in this encounter Additional Health Concerns Infection Onset Date Last Indicated Resolved Time History of C. difficileComment: C. diffiicile 08/20/2021 testing positive 05/25/21. documented as of this encounter Care Teams Freight Agent Relationship Specialty Start Date End Date Beatriz Maurice PA PCP - General Family Medicine 05/06/21 [address] [place] [address] documented as of this encounter
--- OUTSIDE RECORDS SUMMARY | 2022-02-14 11:16 | XMS_ITS | Encounter Summary ---
:1960 Author Organization [facility] Address [facility] [address] [place] [address] Care Team Providers Name Role Phone Beatriz Maurice Primary Care Provider Encounter Details Date Type Department Care Team Description 09/05/2021 Orders Only Hematology and Pierce, Miroslava Spivey, Acute my eloid leukemia Oncology at [facility] FISHING TOOL SUPERVISOR not having achieved [facility] [place] [address] HEMATOLOGY/ONCOLOG [phone] [address]PT. [place] [address] Social History Tobacco Use Types Packs/Day [...] and Oncology Parviz Modi MD [facility] DR HEMATOLOGY/[place] [address] Miroslava Pelayo APRN [facility] HEMATOLOGY/[place] [address] 02/24/2022 Office Visit Wound Care 02/24/2022 Appointment Hematology and Oncology 02/26/2022 Office Visit Neurology Leni Bustamante MD [facility] ER DR NEUROLOGY DEPT. [place], [place] [address] (Wo rk) documented as of this encounter Results Leukemia Lymphoma Screen Cerebrospinal Fluid (09/05/2021 2:49 PM EST) [facility] Method Time Signature LLS BF Type CSF [facility] Leukemia See Comment [facility] Lymphoma [facility]OR[facility] Comment: See Fluid Review Report [id number] under Hematopathology Reports. Specimen (Source) Anatomical Collection Method Collection Time Re ceived Time Location / / Volume Laterality Cerebrospinal Fluid 09/05/2021 2:49 09/05 PM EST 4:42 PM EST Resulting Agency Comment Spec In Lab Miroslava Pelayo APRN BODY FLUIDS AND STOOLS ORDER BRINA Performing Organization Address City/State/[place] [address] CSF Culture (09/05/2021 2:49 PM EST) Component Value Ref Test Analysis Performed At [facility] [employer] Range Method Time Signature Central No growth [facility] Nervous [facility]ORATORY Gram Stain Cytocentrifuge Gram Stain performed [facility] No Neutrophils seen. [place] No microorganisms seen. [facility] Specimen (Source) Anatomical Collection Method Collection Time Re ceived Time Location / / Volume Laterality Cerebrospinal Fluid 09/05/2021 2:49 09/05 PM EST 4:59 PM EST Resulting Agency Comment Spec In Lab Miroslava M [place] FISHING TOOL SUPERVISOR MICROBIOLOGY - GENERAL ORDER BRINA Performing Organization Address City/[facility]/[place] [address] Glucose Level CSF (09/05/2021 2:49 PM EST) P athologist Signature Glucose, CSF 57 mg/dL [facility] Comment: CSF at equilibrium equals appro ximately 60-80% of plasma glucose. Specimen (Source) Anatomical Collection Method Collection Time Re ceived Time Location / / Volume Laterality Cerebrospinal Fluid 09/05/2021 2:49 09/05 PM EST 4:42 PM EST Resulting Agency Comment Spec In Lab Miroslava Pelayo FISHING TOOL SUPERVISOR BODY FLUIDS AND STOOLS ORDER BRINA Performing Organization Address City/[facility]/ZIP Code Phon e Number [address] Protein Level CSF (09/05/2021 2:49 PM EST) athologist Signature T Protein, CSF 30 15 - 45 [facility] mg/dL [facility] Xanthochromia Neg [facility] Specimen (Source) Anatomical Collection Method Collection Time Re ceived Time Location / / Volume Laterality Cerebrospinal Fluid 09/05/2021 2:49 09/05 PM EST 4:42 PM EST Resulting Agency Comment Spec In Lab Miroslava Pelayo FISHING TOOL SUPERVISOR BODY FLUIDS AND STOOLS ORDER BRINA Performing Organization Address City/[facility]/[place] [address] documented in this encounter Visit Diagnoses Diagnosis 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 difficileComment: C. diffiicile 08/20/2021 testing positive 05/25/21. documented as of this encounter Care Teams Legal Activity Adjudicator Relationship Specialty Start Date End Date Beatriz Mauriec PA PCP - General Family Medicine 05/06/21 [address] [place] [address] documented as of this encounter
--- OUTSIDE RECORDS SUMMARY | 2022-02-14 11:16 | XMS_ITS | Encounter Summary ---
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 Ostomy Supplies [facility] Dispense 2 boxes 20 each 2 (10/box) of Sensura Flako Soft Convex One-piece Pouch #[id number] per month. Ostomy Supplies [facility] Dispense 2 boxes 40 each 2 (20/box) of Brava Elastic Barrier strips #[id number] per month. Ostomy Supplies [facility] Dispense 1 box (50/box) 50 [...] 24 hr Colostomy Belt Dispense 1 Sensura [place] 1 each 2 12/13/2021 (Ostomy Belt Medium) Belt #[id number] per month. [facility] loperamide (Imodium Take 1 capsule [...] mg/mL Syringe subcutaneously daily for 30 days. gabapentin Take 1 capsule by mouth 90 capsule 0 08/07/2021 0 09/12/2021 (Neurontin) 300 mg 2 times daily. Capsule venetoclax Take 2 tablets (200 mg) 60 tablet 12 07/31/2021 0 09/13/2021 (Venclexta) 100 mg by mouth daily. Take tabletIndications: with food and a large acute myeloid glass of water. Call leukemia clinic before starting medication. Indications: acute myeloid leukemia, a type of blood cancer documented as of this encounter Plan of Treatment Upcoming Encounters Date Type Specialty Care Team Description 02/18/2022 Infusion Hematology and Oncology 02/21/2022 Infusion Hematology and Oncology 02/24/2022 Appointment Hematology and Oncology 02/24/2022 Office Visit Hematology and Oncology Parviz Modi MD [facility] [address] HEMATOLOGY/[place] [address] Miroslava Pelayo APRN [facility] [address] HEMATOLOGY/[place] [address] 02/24/2022 Office Visit Wound Care 02/24/2022 Appointment Hematology and Oncology 02/26/2022 Office Visit Neurology Leni Bustamante MD [facility] [address] DR NEUROLOGY DEPT. [place], [place] [address] (Wo rk) documented as of this encounter Procedures Procedure Name Priority Date/Time Associated Comments Diagnosis TYPE AND SCREEN STAT 09/09/2021 8:37 AM Result s for this VALIDITY EST procedure are i n the results section. ABORH RECHECK STATUS STAT 09/09/2021 8:37 AM R esults for this EST procedure are i n the results section. HEMOGRAM STAT 09/09/2021 8:37 AM Acute myeloid Results for this EST leukemia not having procedur e are in achieved remissi on the results Anemia, unspecified section. 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 ce S/P partial resection of colon DIFFERENTIAL, STAT 09/09/2021 8:37 AM Acute myeloid Results for this AUTOMATED EST leukemia not having procedur e are in achieved remissi on the results Anemia, unspecified section. 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 ce S/P partial resection of colon ABO/RH TYPING STAT 09/09/2021 8:37 AM Acute myeloid Results for this EST leukemia not having procedur e are in achieved remissi on the results Anemia, unspecified section. 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 ce S/P partial resection of colon APTT Routine 09/09/2021 8:37 AM Results f or this EST procedure are i n the results section. HC VENIPUNCTURE Routine 09/09/2021 8:37 AM Acute myeloid Resul ts for this EST leukemia not having procedur e are in achieved remission the resul ts section. PLATELET COUNT Routine 09/09/2021 8:37 AM Acute myeloid Result s for this EST leukemia not having procedur e are in achieved remission the resul ts section. HC CBC,PLT & AUTO DIFF STAT 09/09/2021 8:37 AM Acute myeloi d EST leukemia not having achieved remissi on Anemia, unspecified 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 ce S/P partial resection of colon ANTIBODY SCREEN STAT 09/09/2021 8:37 AM Acute myeloid Resul ts for this EST leukemia not having procedur e are in achieved remissi on the results Anemia, unspecified section. 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 ce S/P partial resection of colon HC ABO-MICROTITER STAT 09/09/2021 8:37 AM Acute myeloid EST leukemia not having achieved remissi on Anemia, unspecified 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 ce S/P partial resection of colon COMPREHENSIVE Routine 09/09/2021 8:37 AM Acute myeloid Results for this METABOLIC PANEL EST leukemia not having proce dure are in (NON-FASTING) achieved remissi on the results Anemia, unspecified section. 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 ce S/P partial resection of colon documented in this encounter Results APTT (09/09/2021 8:37 AM EST) P athologist Signature PTT 32 25 - 37 sec [facility] Comment: The PTT is NOT appropriate for heparin m onitoring. Use the Anti-Xa level for heparin monitoring (HEP UFH) or LMWH mon itoring (HEP LMW). A PTT less than 37 seconds generally indicates adequate hem ostasis. Specimen Anatomical Collection Method Collection Time Receive d Time (Source) Location / / Volume Laterality Blood Venous Draw / 09/09/2021 8:37 AM 09/09/19 22 9:01 Unknown EST AM EST Resulting Agency Comment Spec In Lab Caterina Dillon DO HEMATOLOGY ORDERABLES Performing Organization Address City/State/ZIP [place] [address] Type and Screen Validity (09/09/2021 8:37 AM EST) [facility] [employer] Method Time Signature T&S only valid [facility] LABORATORY Comment: This Type and Screen result is only valid at the [facility] Specimen Anatomical Collection Method Collection Time Receive d Time (Source) Location / / Volume Laterality Blood 09/09/2021 8:37 AM 8:44 EST AM EST Resulting Agency Comment Spec In Lab Parviz Modi MD BLOOD BANK ORDERABLES Performing Organization Address City/[facility]/ZIP Code Phon e Number [address] ABORH Recheck Status (09/09/2021 8:37 AM EST) [facility] [employer] Method Time Signature ABORH Type Completed [facility] LABORATORY Specimen Anatomical Collection Method Collection Time Receive d Time (Source) Location / / Volume Laterality Blood 09/09/2021 8:37 AM 2 8:44 EST AM EST Resulting Agency Comment Spec In Lab Parviz Modi MD BLOOD BANK ORDERABLES Performing Organization Address City/[facility]/ZIP [place] [address] Antibody screen (09/09/2021 8:37 AM EST) [facility] Method Time Signature Ab Screen Negative [facility] LABORATORY Expires at 09/12/2021 [facility] 0015 on: [facility]ORY Specimen Anatomical Collection Method Collection Time Receive d Time (Source) Location / / Volume Laterality Blood 09/09/2021 8:37 AM 2 8:44 EST AM EST Resulting Agency Comment Spec In Lab Parviz Modi MD BLOOD BANK ORDERABLES Performing Organization Address City/[facility]/ZIP [place] [address] ABO/Rh Typing (09/09/2021 8:37 AM EST) P athologist Signature ABORh Type O Pos [facility] Specimen Anatomical Collection Method Collection Time Receive d Time (Source) Location / / Volume Laterality Blood 09/09/2021 8:37 AM 2 8:44 EST AM EST Resulting Agency Comment Spec In Lab Parviz Modi MD BLOOD BANK ORDERABLES Performing Organization Address City/[facility]/ZIP [place] [address] (ABNORMAL) Differential, Automated (09/09/2021 8:37 AM EST) [facility] Method Time Signature Neutrophils % 55.4 % [facility] Neutr Abs (ANC) 0.89 (L) 1.70 - [facility] 6.10 [facility] x10(3)/[facility] L LABORATORY Lymphocytes % 39.1 % [facility] Lymphocytes Abs 0.6 (L) 0.9 - 3.2 [facility] x10(3)/[facility] LABORATORY Monocytes % 4.3 % [facility] Monocyte Abs 0.1 (L) 0.3 - 0.9 [facility] x10(3)/[facility] LABORATORY Eosinophils % 0.0 % [facility] Eosinophils Abs 0.0 0.0 - 0.4 [facility] x10(3)/[facility] LABORATORY Basophils % 0.6 % [facility] Basophils Abs 0.0 0.0 - 0.1 [facility] x10(3)/[facility] LABORATORY Immature Gran % 0.60 % [facility] Comment: Immature granulocytes(IG's)percentage an d absolute count will include metamyelocytes, myelocytes, and promyelo cytes. Blood smears from CBCs yielding IG's will be scanned manually for concor dance. If this scan disagrees with the automated IG or if promyelocytes are not ed, a manual differential will be performed. Zara Gran Abs 0.01 0.00 - 0.04 x10(3)/[facility] LABORATORY Specimen Anatomical Collection Method Collection Time Receive d Time (Source) Location / / Volume Laterality Blood 09/09/2021 8:37 AM 9:01 EST AM EST Resulting Agency Comment Spec In Lab Parviz Modi MD HEMATOLOGY ORDERABLES Performing Organization Address City/State/[place] [address] (ABNORMAL) Hemogram (09/09/2021 8:37 AM EST) [facility] gist Method Time Signature WBC 1.6 4.0 - 9.5 [facility] (Critical) x10(3)/[facility] LABORATORY RBC 2.86 (L) 4.58 - [facility]54 [facility] x10(6)/[facility] LABORATORY Hemoglobin 9.0 (L) 13.7 - [facility] 16.5 g/dL [facility]ORY Hematocrit 26.6 (L) 40.5 - [facility] 48.5 % [facility]ORY MCV 93.0 82.9 - [facility] 93.1 [facility] LABORATORY MCH 31.5 27.5 - [facility] 32.1 pg [facility]ORY MCHC 33.8 32.0 - [facility] 35.7 g/dL [facility]ORY Platelets 129 (L) 145 - 357 [facility] x10(3)/[facility] LABORATORY RDWSD 48.0 (H) 36.0 - [facility] 45.0 [facility] LABORATORY RDWCV 18.9 (H) 11.4 - [facility] 13.8 % [facility] LABORATORY MPV 10.9 7.6 - 12.9 [facility] LABORATORY nRBC % Auto 9.3 % [facility] nRBC Abs Auto 0.150 (H) 0.000 - [facility] 0.000 [facility] x10(3)/[facility] LABORATORY Specimen Anatomical Collection Method Collection Time Receive d Time (Source) Location / / Volume Laterality Blood 09/09/2021 8:37 AM 9:01 EST AM EST Resulting Agency Comment Spec In Lab Parviz Modi MD HEMATOLOGY ORDERABLES Performing Organization Address City/State/[place] [address] (ABNORMAL) Comprehensive metabolic panel (non-fasting) (09/09/2021 8:37 AM EST) P athologist Signature Glucose Lvl 114 65 - 199 [facility] mg/dL [facility] Comment: Diabetes: >=200 mg/dL plus symp toms BUN 33 (H) 10 - 20 mg/dL [facility] Creatinine 1.46 0.80 - 1.50 mg/dL [facility] Sodium 135 135 - 145 mmol/L [facility] Potassium 4.5 3.5 - 5.0 mmol/L [facility] Comment: Please note: ??Patients with WBC >100,00 0 may have falsely elevated Potassium levels. ??For accurate Potassium quantif ication in these patients send serum separator tube (gold top) for subsequent determinations. ??Contact the Clinical Chemistry Laboratory if there are any qu estions. Chloride 106 98 - 107 mmol/L [facility] CO2 16 (L) 22 - 31 mmol/L [facility] Anion Gap 13 5 - 15 mmol/L [facility] Calcium 9.6 8.5 - 10.5 mg/dL [facility] Total Protein 8.1 (H) 6.1 - 8.0 g/dL [facility] Albumin 4.2 3.2 - 5.2 g/dL [facility] AST 42 (H) 0 - 39 unit/L [facility] ALT 41 0 - 55 unit/L [facility] Alk Phos 138 (H) 40 - 130 unit/L [facility] Total Bilirubin 0.3 0.2 - 1.3 mg/dL [facility] Estimated GFR 51 (L) >=60 mL/min/1.73 m?? [facility] Comment: This patient? s [...] (Source) Location / / Volume Laterality Blood 09/09/2021 8:37 AM 9:01 EST AM EST Resulting Agency Comment Spec In Lab Parviz Modi MD CHEMISTRY ORDERABLES Performing Organization Address City/State/[place] [address] (ABNORMAL) Platelet count (09/09/2021 8:37 AM EST) athologist Signature Platelets 129 (L) 145 - 357 [facility] x10(3)/[facility] LABORATORY Plat Immature 2.4 0.0 - 7.4 [facility] % % [facility] Comment: Limitation of the Immature Platelet Frac tion (IPF)-May be less reliable when the platelet count is less than 73g595/u L due to statistical imprecision. The IPF [...] in a decreased state of production. References: [employer] The Clinical Value of the Immature Platelet Fraction (IPF) in Cell Recovery Document Number [id number] 01/2011 [employer] The Role of the Imm ature Platelet Fraction (IPF) in the Differential Diagnosis of Thrombocytopen ia, Document [id number] V05 P012/28 Specimen Anatomical Collection Method Collection Time Receive d Time (Source) Location / / Volume Laterality Blood 09/09/2021 8:37 AM 9:01 EST AM EST Resulting Agency Comment Spec In Lab Yolette Solano APRN HEMATOLOGY ORDERABLES Performing Organization Address City/State/[place] [address] Prothrombin Time (09/09/2021 8:37 AM EST) athologist Signature PT 10.9 9.4 - 12.5 [facility] LABORATORY INR 1.0 [facility] Comment: An INR <2.0 indicates [...] (Source) Location / / Volume Laterality Blood 09/09/2021 8:37 AM 9:01 EST AM EST Resulting Agency Comment Spec In Lab Yolette Solano APRN HEMATOLOGY ORDERABLES Performing Organization Address City/State/[facility] [place] [address] documented in this encounter [...] as of this encounter Care Teams Hand Mounter Relationship Specialty Start Date End Date Beatriz Maurice PA PCP - General Family Medicine 05/06/21 [address] [place] [address] documented as of this encounter
--- OUTSIDE RECORDS SUMMARY | 2022-02-14 11:16 | XMS_ITS | Encounter Summary ---
:1960 Author Organization [facility] Address [facility] [place] [address] Care Team Providers Name Role Phone Beatriz Maurice Primary Care Provider Reason for Visit Reason Comments Follow-up Encounter Details Date Type Department Care Team Description 09/09/2021 Office Visit Hematology and Radha Mdoi MD [facility] DR HEMATOLOGY/[place] [address] Acute myeloid leukemia not having achiev ed remission; Oncology at [facility] [place] [facility] Miroslava Pelayo [facility] DR HEMATOLOGY/[place] [address] Thrombocytopenia; [facility] Hayley Palmer, [facility] DR HEMATOLOGY[place] [address]; Drive Stem cell transplant michael [place], [place] Acute leukemia in remission; [id number] S/P partial resection of col on; [phone] H/O Clostridium difficile infection Social History Tobacco Use Types Packs/Day Years [...] Sign Reading Time Taken Comments Blood Pressure 127/79 09/09/2021 9:03 AM EST Pulse 76 09/09/2021 9:03 AM EST Temperature 36.5 ??C (97.7 ??F) 09/09/2021 9:03 AM EST Respiratory Rate 16 09/09/2021 9:03 AM EST Oxygen Saturation 100% 09/09/2021 9:03 AM EST Inhaled Oxygen Concentration - - Weight 102.8 kg (226 lb 9.6 oz) 09/09/2021 9:03 AM EST Height 177 cm (5' 9.69) 09/09/2021 9:03 AM EST Body Mass Index 32.81 09/09/2021 9:03 AM EST documented in this encounter Progress Notes Parviz Modi MD - 09/09/2021 9:15 AM EST HEMATOLOGY/BMT CONSULTATION VISIT NOTE CHIEF COMPLAINT: Herber Iverson Jr. is a 61 y.o. male originally referred by Dr. Beatriz Maurice for evaluation of leukemia. He is seen in follow-up today. Data Review (From Recent Hospital discharge summary and the EMR) Admitted to [facility] 04/29/21 for leukocytosus. Discharged 04/30/21. 04/30/21 [...] [place] [address]/10,000 ABL1 copies (135.80%.) 08/08/21 Discharged after reinduction with gilteritinib and venetoclax and initial clearance of PRODUCT MANAGEMENT ANALYST leukemia. 08/12/21 LP - FELY 08/26/21 LP - FELY 09/05/20 LP - FELY 09/09/20 LP - scheduled 09/12/20 BM Bx - scheduled ORIGINAL HISTORY OF PRESENT ILLNESS Herber Iverson Jr. dates the onset of his illness to earlier this summer. He has felt more tired than usual but attributed it to the humidity. About 3 weeks ago his fatigue was so bad that he went to a clinic in [facility]. He was evaluated for a UTI that was negative. 1 week ago today he saw his PCPwho ended up gatting a CBC showing abnormal counts and he was admitted to [facility]. Other than fatigue has had no fevers, chills or drenching sweats. Has lost a few lbs - <10. Appetite has been down recently. No bleeding or bruising. Was very actived when younger - played a lot of sports into his 40's. 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 He is now at day approximately +40 (09/09/21) of venetoclax plus gilteritinib therapy (day 1 ~07/31/2021). His most recent LP was 09/05 and showed no evidence of disease. Has been staying at home. No longer using a walker - LE strength continues to improve. Doing his daily PT exercises. Doing some of the cooking. Doing all self care. Fevers, chills, sweats - none Bleeding, bruising, melena - none Energy level - improving Appetite - almost back to normal Colostomy -functioning well, no issues SH Tobacco - never ETOH - a few drinks per year Occupation - works in [employer]. 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 Social - has a girlfriend and his [...] DAILY ??? Colostomy Belt (Ostomy Belt Medium) [facility] [place] 1 Sensura Dennard Belt #[id number] per month. ??? enoxaparin (LOVENOX) [...] Misc Dispense 2 boxes (10/box) of Sensura Dennard Soft Convex One-piece Pouch #[id number] month. ??? Ostomy Supplies Misc Dispense 2 boxes (20/box) of Brava Elastic Barrier strips #[id number] per month. ??? Ostomy Supplies Misc Dispense [...] beat PHYSICAL EXAM VITAL SIGNS: Blood pressure 127/79, pulse 76, temperature 36.5 ??C (97.7 ??F), temperature source Temporal, resp. rate 16, height 177 cm (5' 9.69), weight 102.8 kg (226 lb 9.6 oz), SpO2 100 %. GENERAL: Herber Iverson Jr. is a mildly chronically ill-appearing 61 y.o. male in no acute distress. He is not using a walker today. NEUROLOGICAL: Alert and oriented LABORATORY Recent Results (from the past 72 hour(s)) Prothrombin Time Result Value Ref Range PT 10.9 9.4 - 12.5 sec INR 1.0 Platelet count Result Value Ref Range Platelets 129 (L) 145 - 357 x10(3)/mcL Plat Immature % 2.4 0.0 - 7.4 % Hemogram Result Value Ref Range WBC 1.6 (CRIT) 4.0 - 9.5 x10(3)/mcL RBC 2.86 (L) 4.58 - 5.54 x10(6)/mcL Hemoglobin 9.0 (L) 13.7 - 16.5 g/dL Hematocrit 26.6 (L) 40.5 - 48.5 % MCV 93.0 82.9 - 93.1 fL MCH 31.5 27.5 - 32.1 pg MCHC 33.8 32.0 - 35.7 g/dL Platelets 129 (L) 145 - 357 x10(3)/mcL RDWSD 48.0 (H) 36.0 - 45.0 fL RDWCV 18.9 (H) 11.4 - 13.8 % MPV 10.9 7.6 - 12.9 fL nRBC % Auto 9.3 % nRBC Abs Auto 0.150 (H) 0.000 - 0.000 x10(3)/mcL Differential, Automated Result Value Ref Range Neutrophils % 55.4 % Neutr Abs (ANC) 0.89 (L) 1.70 - 6.10 x10(3)/mcL Lymphocytes % 39.1 % Lymphocytes Abs 0.6 (L) 0.9 - 3.2 x10(3)/mcL Monocytes % 4.3 % Monocyte Abs 0.1 (L) 0.3 - 0.9 x10(3)/mcL Eosinophils % 0.0 % Eosinophils Abs 0.0 0.0 - 0.4 x10(3)/mcL Basophils % 0.6 % Basophils Abs 0.0 0.0 - 0.1 x10(3)/mcL Immature Gran % 0.60 % Zraa Gran Abs 0.01 0.00 - 0.04 x10(3)/mcL Antibody screen Result Value Ref Range Expires at 2359 on: 09/12/2021 ABORH Recheck Status Result Value Ref Range ABORH Type Recheck Completed RADIOLOGY - None ASSESSMENT & PLANS 1. Flt3+ AML --Herber initially achieved CR with 7&3 + midostauren but subsequently relapsed. --He is now having what appears to be a good ongoing response to venetoclax plus gilteritinib with clearing of his PRODUCT MANAGEMENT ANALYST leukemia when last tested 2 weeks ago [...] Continue venetoclax plus Xospata. --Herber will receive 0 units of packed red blood cells today. No platelet transfusions required today. --IT chemo today as planned. He has now had 6 FELY (5 past clear). Per NCCN recommendations this willbe his final intrathecal chemotherapy treatment. --Restaging bone marrow biopsy is planned for September 12. --We continue to work towards donor identification for planned allogenic stem cell transplant for Herber. We will also arrange for his prestemcell transplant evaluation testing. --RTC 1 week for labs, providers to review BM Bx results and hopefully plans for moving forward to HSCT. --Herber to call any time if not feeling well or questions or concerns arise. Parviz Modi MD Section of Hematology [facility] documented in this encounter Plan of Treatment Upcoming Encounters Date Type Specialty Care Team Description 02/18/2022 Infusion Hematology and Oncology 02/21/2022 Infusion Hematology and Oncology 02/24/2022 Appointment Hematology and Oncology 02/24/2022 Office Visit Hematology and Oncology Parviz Modi MD [facility] DR HEMATOLOGY/[place] [address] Miroslava Pelayo APRN [facility] DR HEMATOLOGY/[place] [address] 02/24/2022 Office Visit Wound Care 02/24/2022 Appointment Hematology and Oncology 02/26/2022 Office Visit Neurology Leni Bustamante MD [facility] DR NEUROLOGY DEPT. [place], [place] [address] (Wo rk) documented as of this encounter Visit Diagnoses Diagnosis Acute myeloid leukemia not having achiev ed remission Thrombocytopenia Thrombocytopenia, unspecified 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 status Stem cell transplant candidate Acute leukemia in remission Acute leukemia of unspecified cell type in remission S/P partial resection of colon Other postprocedural status H/O Clostridium difficile infection Personal history of other infectious and parasitic disease documented in this encounter Additional Health Concerns Infection Onset Date Last Indicated Resolved Time History of C. difficileComment: C. diffiicile 08/20/2021 testing positive 05/25/21. documented as of this encounter Care Teams Account Manager Relief Relationship Specialty Start Date End Date Beatriz Maurice PA PCP - General Family Medicine 05/06/21 [address] [place] [address] documented as of this encounter
--- OUTSIDE RECORDS SUMMARY | 2022-02-14 11:16 | XMS_ITS | Encounter Summary ---
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 Ostomy Supplies [facility] [place] Dispense 2 boxes 20 each 2 (10/box) of Sensura Flako Soft Convex One-piece Pouch #[id number] per month. Ostomy Supplies Mis Dispense 2 boxes 40 each 2 (20/box) of Brava Elastic Barrier strips #[id number] per month. Ostomy Supplies [facility] [place] Dispense 1 box (50/box) 50 each of a generic no-sting skin barrier wipe per month. gilteritinib Take 3 tablets (120 mg) 90 tablet 0 08/27/2021 12/13/2021 (Xospata) 40 mg by mouth daily. Call tabletIndications: clinic before starting acute myeloid medication. 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 [facility] [place] enoxaparin (Lovenox) Inject 1 mL 30 mL 2 08/14/2021 100 mg/mL Syringe subcutaneously daily for 30 days. gilteritinib Take 3 tablets (120 mg) 21 tablet 0 08/08/2021 08/27/2021 (Xospata) 40 mg by mouth daily for 7 tabletIndications: days. Call clinic acute myeloid before starting leukemia with FLT3 medication. 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 metoprolol succinate Take 1 tablet by mouth 30 tablet 12 08/28/2021 XL (Toprol-XL) 50 mg daily. Tablet Sustained Release 24 hr acyclovir (Zovirax) Take 1 tablet by mouth 60 tablet 0 07/1808/28/2021 400 mg Tablet 2 times daily. fluconazole Take 2 tablets by mouth 60 tablet 0 08/08/2021 08/28/2021 (Diflucan) 200 mg daily for 30 days. Tablet gabapentin Take 1 capsule by mouth 90 capsule 0 08/07/2021 0 09/12/2021 (Neurontin) 300 mg 2 times daily. Capsule levoFLOXacin Take 1 tablet by mouth 30 tablet 0 08/08/2021 08/28/2021 (Levaquin) 750 mg daily. Tablet tamsulosin (Flomax) Take 1 capsule by mouth 90 tablet 0 11/18/2021 0.4 mg Capsule daily. vancomycin (Vancocin) Take 1 capsule by mouth 90 capsule 0 1 10/08/2020 08/28/2021 125 mg Capsule 2 times daily. sulfamethoxazole-trim Take 1 tablet by mouth 30 tablet 0 09/04/2021 ethoprim DS (Bactrim three times a week. DS) 800-160 mg Tablet venetoclax Take 2 tablets (200 mg) 60 tablet 12 07/31/2021 0 09/13/2021 (Venclexta) 100 mg by mouth daily. Take tabletIndications: with food and a large acute myeloid glass of water. Call leukemia clinic before starting medication. Indications: acute myeloid leukemia, a type of blood cancer gilteritinib Take 3 tablets (120 mg) 90 tablet 0 07/13/2021 08/27/2021 (Xospata) 40 mg by mouth daily. Call tabletIndications: clinic before starting acute myeloid medication. 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 [address] Miroslava Pelayo, HEYDI [facility] HEMATOLOGY/[place] [address] 02/24/2022 Office Visit Wound Care 02/24/2022 Appointment Hematology and Oncology 02/26/2022 Office Visit Neurology Leni Bustamante MD [facility] ER NEUROLOGY DEPT. [place], [place] [address] (Wo rk) Scheduled Orders Name Type Priority Associated Diagnoses Order S chedule Prothrombin Time Lab Routine Acute myeloid leukemia n ot 1 Occurrences starting having achieved remission until 08/26/2021 documented as of this encounter Procedures Procedure Name Priority Date/Time Associated Comments Diagnosis TYPE AND SCREEN STAT 08/26/2021 8:16 Results f or this VALIDITY AM EST procedure are i n the results section. ABORH RECHECK STATUS STAT 08/26/2021 8:16 Resu lts for this AM EST procedure are i n the results section. SCAN, PERIPHERAL BLOOD STAT 08/26/2021 8:16 Re sults for this AM EST procedure are i n the results section. HEMOGRAM STAT 08/26/2021 8:16 Acute myeloid Results for this AM EST leukemia not having procedur e are in achieved remissi on the results Anemia, unspecified section. 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 ce S/P partial resection of colon DIFFERENTIAL, AUTOMATED STAT 08/26/2021 8:16 Acute myeloid Results for this AM EST leukemia not having procedur e are in achieved remissi on the results Anemia, unspecified section. 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 ce S/P partial resection of colon ABO/RH TYPING STAT 08/26/2021 8:16 Acute myeloid Results fo r this AM EST leukemia not having procedur e are in achieved remissi on the results Anemia, unspecified section. 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 ce S/P partial resection of colon HC PARTIAL Routine 08/26/2021 8:16 Acute myeloid Results for this THROMBOPLASTIN TIME AM EST leukemia not having p rocedure are in achieved remission the resul ts section. HC PROTHROMBIN TIME Routine 08/26/2021 8:16 Acute myeloid Resu lts for this AM EST leukemia not having procedur e are in achieved remission the resul ts section. PLATELET COUNT Routine 08/26/2021 8:16 Acute myeloid Results f or this AM EST leukemia not having procedur e are in achieved remission the resul ts section. HC CBC,PLT & AUTO DIFF STAT 08/26/2021 8:16 Acute myeloid AM EST leukemia not having achieved remissi on Anemia, unspecified 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 ce S/P partial resection of colon ANTIBODY SCREEN STAT 08/26/2021 8:16 Acute myeloid Results for this AM EST leukemia not having procedur e are in achieved remissi on the results Anemia, unspecified section. 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 ce S/P partial resection of colon HC ABO-MICROTITER STAT 08/26/2021 8:16 Acute myeloid AM EST leukemia not having achieved remissi on Anemia, unspecified 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 ce S/P partial resection of colon HC VENIPUNCTURE Routine 08/26/2021 8:16 Acute myeloid Results for this AM EST leukemia not having procedur e are in achieved remissi on the results Anemia, unspecified section. 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 ce S/P partial resection of colon documented in this encounter Results Scan, Peripheral Blood (08/26/2021 8:16 AM EST) [facility] gist Method Time Signature Plat Estimate Decreased [facility] RBC Morphology Abnormal [facility] Microcytes 1-5 /HPF [facility] Hypochromia Slight [facility] Polychromasia Present >5/HPF [facility] Tear Drop Cells 1-5 /HPF [facility] Specimen Anatomical Collection Method Collection Time Receive d Time (Source) Location / / Volume Laterality Blood 08/26/2021 8:16 AM 8:28 EST AM EST Resulting Agency Comment Spec In Lab Parviz Osullivan MD HEMATOLOGY ORDERABLES Performing Organization Address City/State/[place] [address] Type and Screen Validity (08/26/2021 8:16 AM EST) [facility] Method Time Signature T&S only valid [facility] Hosp JIA MARX at [facility] Comment: This Type and Screen result is only valid at the [facility] Hospital Specimen Anatomical Collection Method Collection Time Receive d Time (Source) Location / / Volume Laterality Blood 08/26/2021 8:16 AM 2 8:23 EST AM EST Resulting Agency Comment Spec In Lab Parviz Osullivan MD BLOOD BANK ORDERABLES Performing Organization Address City/State/[place] [address] ABORH Recheck Status (08/26/2021 8:16 AM EST) [facility] Method Time Signature ABORH Type Completed [facility] LABORATORY Specimen Anatomical Collection Method Collection Time Receive d Time (Source) Location / / Volume Laterality Blood 08/26/2021 8:16 AM 2 8:23 EST AM EST Resulting Agency Comment Spec In Lab Parviz Osullivan MD BLOOD BANK ORDERABLES Performing Organization Address City/State/[place] [address] Antibody screen (08/26/2021 8:16 AM EST) [facility] Method [place] Signature Ab Screen Negative [facility] LABORATORY Expires at 08/29/2021 JIA MARX [id number] on: [facility] Specimen Anatomical Collection Method Collection Time Receive d Time (Source) Location / / Volume Laterality Blood 08/26/2021 8:16 AM 2 8:23 EST AM EST Resulting Agency Comment Spec In Lab Parviz Osullivan MD BLOOD BANK ORDERABLES Performing Organization Address City/State/[place] [address] ABO/Rh Typing (08/26/2021 8:16 AM EST) athologist Signature ABORh Type O Pos [facility] Specimen Anatomical Collection Method Collection Time Receive d Time (Source) Location / / Volume Laterality Blood 08/26/2021 8:16 AM 8:23 EST AM EST Resulting Agency Comment Spec In Lab Parviz Osullivan MD BLOOD BANK ORDERABLES Performing Organization Address City/State/[place] [address] (ABNORMAL) Differential, Automated (08/26/2021 8:16 AM EST) Patholo gist Method Time Signature Neutrophils % 26.6 % [facility] Neutr Abs (ANC) 0.26 1.70 - [facility] (Critical 6.10 [facility] ) x10(3)/[facility] L LABORATORY Comment: This result has been called to CARROLL OSULLIVAN by Татьяна Thornton on 08 26 2021 at 0919, and has been read back. Lymphocytes % 61.2 % [facility] Lymphocytes Abs 0.6 (L) 0.9 - 3.2 x10(3)/[facility] LABORATORY Monocytes % 11.2 % [facility] Monocyte Abs 0.1 (L) 0.3 - 0.9 x10(3)/[facility] LABORATORY Eosinophils % 0.0 % [facility] Eosinophils Abs 0.0 0.0 - 0.4 x10(3)/[facility] LABORATORY Basophils % 0.0 % [facility] Basophils Abs 0.0 0.0 - 0.1 x10(3)/[facility] LABORATORY Immature Gran % 1.00 % [facility] Comment: Immature granulocytes(IG's)percentage an d absolute count will include metamyelocytes, myelocytes, and promyelo cytes. Blood smears from CBCs yielding IG's will be scanned manually for concor dance. If this scan disagrees with the automated IG or if promyelocytes are not ed, a manual differential will be performed. Zara Gran Abs 0.01 0.00 - 0.04 x10(3)/[facility] MAR Y [facility] Specimen Anatomical Collection Method Collection Time Receive d Time (Source) Location / / Volume Laterality Blood 08/26/2021 8:16 AM 8:28 EST AM EST Resulting Agency Comment Spec In Lab Parviz Osullivan MD HEMATOLOGY ORDERABLES Performing Organization Address City/State/[place] [address] (ABNORMAL) Hemogram (08/26/2021 8:16 AM EST) athologist Signature WBC 1.0 4.0 - 9.5 [facility] (Critical) x10(3)/[facility] LABORATORY RBC 1.67 (L) 4.58 - [facility] 5.54 [facility] x10(6)/[facility] LABORATORY Hemoglobin 5.2 13.7 - [facility] (Critical) 16.5 g/dL [facility]ORY Comment: This result has been called to CARROLL OSULLIVAN by NAVEEN MCCOY on 08 26 2021 at 0907, and has been read back. Hematocrit 15.2 (L) 40.5 - 48.5 % [facility] MCV 91.0 82.9 - 93.1 [facility] LABORATORY MCH 31.1 27.5 - 32.1 pg [facility] MCHC 34.2 32.0 - 35.7 g/dL [facility] Platelets 36 (L) 145 - 357 x10(3)/[facility] LABORATORY RDWSD 48.5 (H) 36.0 - 45.0 [facility] LABORATORY RDWCV 15.9 (H) 11.4 - 13.8 % [facility] LABORATORY MPV 11.2 7.6 - 12.9 [facility] LABORATORY nRBC Abs Auto 0.040 (H) 0.000 - 0.000 x10(3)/[facility] Specimen Anatomical Collection Method Collection Time Receive d Time (Source) Location / / Volume Laterality Blood 08/26/2021 8:16 AM 8:28 EST AM EST Resulting Agency Comment Spec In Lab Parviz Osullivan MD HEMATOLOGY ORDERABLES Performing Organization Address City/[facility]/ZIP Code Phon e Number [address] APTT (08/26/2021 8:16 AM EST) P athologist Signature PTT 28 25 - 37 sec [facility] Comment: The PTT is NOT appropriate for heparin m onitoring. Use the Anti-Xa level for heparin monitoring (HEP UFH) or LMWH mon itoring (HEP LMW). A PTT less than 37 seconds generally indicates adequate hem ostasis. Specimen Anatomical Collection Method Collection Time Receive d Time (Source) Location / / Volume Laterality Blood 08/26/2021 8:16 AM 8:28 EST AM EST Resulting Agency Comment Spec In Lab Miroslava Pelayo APRN HEMATOLOGY ORDERABLES Performing Organization Address City/[facility]/Z[place] [address] (ABNORMAL) Platelet count (08/26/2021 8:16 AM EST) P athologist Signature Platelets 36 (L) 145 - 357 [facility] x10(3)/[facility] LABORATORY Plat Immature 2.7 0.0 - 7.4 [facility] % % [facility] Comment: Limitation of the Immature Platelet Frac tion (IPF)-May be less reliable when the platelet count is less than 06f851/u L due to statistical imprecision. The IPF [...] in a decreased state of production. References: [employer] The Clinical Value of the Immature Platelet Fraction (IPF) in Cell Recovery Document Number [id number] 01/2011 [employer] The Role of the Imm ature Platelet Fraction (IPF) in the Differential Diagnosis of Thrombocytopen ia, Document [id number] V05 P012/28 Specimen Anatomical Collection Method Collection Time Receive d Time (Source) Location / / Volume Laterality Blood 08/26/2021 8:16 AM 2 8:28 EST AM EST Resulting Agency Comment Spec In Lab Yolette Solano APRN HEMATOLOGY ORDERABLES Performing Organization Address City/[facility]/ZIP Code Phon e Number [address] Prothrombin Time (08/26/2021 8:16 AM EST) athologist Signature PT 10.9 9.4 - 12.5 [facility] LABORATORY INR 1.0 [facility] Comment: An INR <2.0 [...] (Source) Location / / Volume Laterality Blood 08/26/2021 8:16 AM 2 8:28 EST AM EST Resulting Agency Comment Spec In Lab Yolette Solano APRN HEMATOLOGY ORDERABLES Performing Organization Address [facility] [place] [address] (ABNORMAL) Comprehensive metabolic panel (non-fasting) (08/26/2021 8:16 AM EST) P athologist Signature Glucose Lvl 119 65 - 199 [facility] mg/dL [facility] Comment: Diabetes: >=200 mg/dL plus symp toms BUN 25 (H) 10 - 20 mg/dL [facility] Creatinine 1.05 0.80 - 1.50 mg/dL [facility] Sodium 137 135 - 145 mmol/L [facility] Potassium 4.2 3.5 - 5.0 mmol/L [facility] Comment: Please note: ??Patients with WBC >100,00 0 may have falsely elevated Potassium levels. ??For accurate Potassium quantif ication in these patients send serum separator tube (gold top) for subsequent determinations. ??Contact the Clinical Chemistry Laboratory if there are any qu estions. Chloride 109 (H) 98 - 107 mmol/L [facility] CO2 18 (L) 22 - 31 mmol/L [facility] Anion Gap 10 5 - 15 mmol/L [facility] Calcium 8.8 8.5 - 10.5 mg/dL [facility] Total Protein 7.1 6.1 - 8.0 g/dL [facility] Albumin 3.8 3.2 - 5.2 g/dL [facility] AST 34 0 - 39 unit/L [facility] ALT 35 0 - 55 unit/L [facility] Alk Phos 138 (H) 40 - 130 unit/L [facility] Total Bilirubin <0.2 (L) 0.2 - 1.3 mg/dL [facility] Estimated GFR 76 >=60 mL/min/1.73 m?? [facility] Comment: This patient? s [...] (Source) Location / / Volume Laterality Blood 08/26/2021 8:16 AM 8:28 EST AM EST Resulting Agency Comment Spec In Lab Parviz Osullivan MD CHEMISTRY ORDERABLES Performing Organization Address City/State/[place] [address] documented in this encounter [...] documented as of this encounter Care Teams Novelty Twister Tender Relationship Specialty Start Date End Date Beatriz Maurice PA PCP - General Family Medicine 05/06/21 [address] [place] [address] documented as of this encounter
--- OUTSIDE RECORDS SUMMARY | 2022-02-14 11:16 | XMS_ITS | Encounter Summary ---
:1960 Author Organization [facility] [place] [address] Care Team Providers Name Role Phone Beatriz Maurice Primary Care Provider Reason for Visit Reason Onset Date Comments Other 08/22/2021 Car Insurance Bill f or REANNA Mcgarry Encounter Details Date Type Department Care Team Description 08/22/2021 Telephone Hematology and Nichelle Barnard, Other ( Car Insurance Oncology at [facility] Bill for REANNA [place]garry) [place] [address] Social History Tobacco Use Types Packs/Day [...] Telephone Encounter - Nichelle Barnard MSW - 08/22/2021 4:10 PM EST [facility] staff emailed JENNIFER that Maria Victor[employer] bill must be submitted by 08/28/21 or the application will be removed. [facility] called [facility], told him about the deadline, and Mor[facility] emailed the bill to this marine underwriter. [facility] forwarded the bill to [facility] staff, who said they could family court counsellor it to his online application and the citlali approval process for that and [facility] grocery card will go forward. SW Intervention: Food insecurity resources Financial resources documented in this encounter Plan of Treatment Upcoming Encounters Date Type Specialty Care Team Description 02/18/2022 Infusion Hematology and Oncology 02/21/2022 Infusion Hematology and Oncology 02/24/2022 Appointment Hematology and Oncology 02/24/2022 Office Visit Hematology and Oncology Parviz Modi MD [facility] [address] HEMATOLOGY/[place] [address] Miroslava Pelayo APRN [facility] [address] HEMATOLOGY/[place] [address] 02/24/2022 Office Visit Wound Care 02/24/2022 Appointment Hematology and Oncology 02/26/2022 Office Visit Neurology Leni Bustamante MD [facility] DR NEUROLOGY DEPT. [place], [place] [address] (Wo rk) documented as of this encounter Visit Diagnoses Not on filedocumented in this encounter Additional Health Concerns Infection Onset Date Last Indicated Resolved Time History of C. difficileComment: C. diffiicile 08/20/2021 testing positive 05/25/21. documented as of this encounter Care Teams Brass Cutter Relationship Specialty Start Date End Date Beatriz Maurice PA PCP - General Family Medicine 05/06/21 [address] [place] [address] documented as of this encounter
--- OUTSIDE RECORDS SUMMARY | 2022-02-14 11:16 | XMS_ITS | Encounter Summary ---
:1960 Author Organization [facility] Address [facility] [place] [address] Care Team Providers Name Role Phone Beatriz Maurice Primary Care Provider Encounter Details Date Type Department Care Team Description 09/09/2021 Orders Only Hematology and Oncology at [facility], Miroslava Spivey APRN [facility] Catie narvaez HEMATOLOGY/[place] [address] DEPT. [phone] [place], [place] [address] (Wo rk) Social History Tobacco [...] Visit Hematology and Oncology Parviz Modi MD [facility] DR HEMATOLOGY/[place] [address] Miroslava Pelayo APRN [facility] HEMATOLOGY/[place] [address] 02/24/2022 Office Visit Wound Care 02/24/2022 Appointment Hematology and Oncology 02/26/2022 Office Visit Neurology Leni Bustamante MD [facility] NEUROLOGY DEPT. [place], [place] [address] (Wo rk) documented as of this encounter Visit Diagnoses Not on filedocumented in this encounter Additional Health Concerns Infection Onset Date Last Indicated Resolved Time History of C. difficileComment: C. diffiicile 08/20/2021 testing positive 05/25/21. documented as of this encounter Care Teams Clay Digger Relationship Specialty Start Date End Date Beatriz Maurice PA PCP - General Family Medicine 05/06/21 [address] [place] [address] documented as of this encounter
--- OUTSIDE RECORDS SUMMARY | 2022-02-14 11:16 | XMS_ITS | Encounter Summary ---
:1960 Author Organization [facility] Address [facility] [place] [address] Care Team Providers Name Role Phone Beatriz Maurice Primary Care Provider Encounter Details Date Type Department Care Team Description 09/09/2021 Orders Only [place] [facility] [place] Yolette Solano, Acute myeloid leukemia [facility] THERMOFORMING OPERATOR not having achieved Drive [facility] [place] [address] [facility]ST[facility] RADIOLOGY [phone] [place], [place] [address] (Wo rk) Social History Tobacco [...] [facility] DR HEMATOLOGY/[place] [address] Miroslava Pelayo APRN [facility] HEMATOLOGY/[place] [address] 02/24/2022 Office Visit Wound Care 02/24/2022 Appointment Hematology and Oncology 02/26/2022 Office Visit Neurology Leni Bustamante MD [facility] ER NEUROLOGY DEPT. [place], [place] [address] (Wo rk) documented as of this encounter Results Prothrombin Time (09/09/2021 8:37 AM EST) athologist Signature PT 10.9 9.4 - 12.5 [facility] LABORATORY INR 1.0 [facility] LABORATORY Comment: An INR <2.0 indicates [...] Address City/State/[place] [address] (ABNORMAL) Platelet count (09/09/2021 8:37 AM EST) athologist Signature Platelets 129 (L) 145 - 357 [facility] x10(3)/[facility] LABORATORY Plat Immature 2.4 0.0 - 7.4 [facility] % % [facility] LABORATORY Comment: Limitation of the Immature Platelet Frac tion (IPF)-May be less reliable when the platelet count is less than 79q767/u L due to statistical imprecision. The IPF [...] in a decreased state of production. References: [employer] The Clinical Value of the Immature Platelet Fraction (IPF) in Cell Recovery Document Number [id number] 01/2011 [employer] The Role of the Imm ature Platelet Fraction (IPF) in the Differential Diagnosis of Thrombocytopen ia, Document [id number] V05/07/30 P0514 Specimen Anatomical Collection Method Collection Time Receive d Time (Source) Location / / Volume Laterality Blood 09/09/2021 8:37 AM 9:01 EST AM EST Resulting Agency Comment Spec In Lab Yolette Solano APRN HEMATOLOGY ORDERABLES Performing Organization Address City/State/[place] [address] documented in this encounter Visit Diagnoses Diagnosis 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 difficileComment: C. diffiicile 08/20/2021 testing positive 05/25/21. documented as of this encounter Care Teams Packaging Assembler Relationship Specialty Start Date End Date Beatriz Maurice PA PCP - General Family Medicine 05/06/21 [address] [place] [address] documented as of this encounter
--- OUTSIDE RECORDS SUMMARY | 2022-02-14 11:16 | XMS_ITS | Encounter Summary ---
:1960 Author Organization [facility] Address [address] [facility] [place] [address] Care Team Providers Name Role Phone Beatriz Maurice Primary Care Provider Encounter Details Date Type Department Care Team Description 08/26/2021 Hospital Encounter XRay at [facility] Azar, Acute myeloid [address] [place] [address] Kj Blankenship MD leukemia not having [place], [place] [facility] [place] [phone] Center [phone] [place] [address] Social History Tobacco Use Types Packs/Day Years [...] boxes 20 each 2 (10/box) of [employer] [place] Soft Convex One-piece Pouch #[id number] per month. Ostomy Supplies [facility] Dispense 2 boxes 40 each 2 (20/box) of Brava Elastic Barrier strips #[id number] per month. Ostomy [facility] [...] FLT3 mutation Colostomy Belt Dispense 1 [employer] [place] 1 each 2 12/13/2021 (Ostomy Belt Medium) Belt #[id number] per month. [facility] enoxaparin (Lovenox) Inject 1 mL 30 mL [...] Visit Hematology and Oncology Parviz Modi MD [facility] DR HEMATOLOGY/[place] [address] Miroslava Pelayo APRN [facility] DR HEMATOLOGY/[place] [address] 02/24/2022 Office Visit Wound Care 02/24/2022 Appointment Hematology and Oncology 02/26/2022 Office Visit Neurology Leni Bustamante MD [facility] ER NEUROLOGY DEPT. [place], [place] [address] (Wo rk) documented as of this encounter Procedures Procedure Name Priority Date/Time Associated Comments Diagnosis XR FLUORO GUIDED Routine 08/26/2021 2:11 PM Acute myeloid Resu lts for this LUMBAR PUNCTURE FOR EST leukemia not having p rocedure are in IT CHEMOTHERAPY achieved remission the re sults section. HC CONC. FOR Routine 08/26/2021 1:45 PM Acute myeloid Results for this INFECTIOUS AGENTS EST leukemia not having pro cedure are in achieved remission the resul ts section. FLUID REVIEW REPORT Routine 08/26/2021 1:25 PM Re sults for this EST procedure are i n the results section. HC CSF CELL CT W/ Routine 08/26/2021 1:25 PM Acute myeloid DIFFERENTIAL EST leukemia not having achieved remission CSF CELL COUNT Routine 08/26/2021 1:25 PM Acute myeloid Result s for this EST leukemia not having procedur e are in achieved remission the resul ts section. CSF DESC 4 Routine 08/26/2021 1:25 PM Acute myeloid Results for this EST leukemia not having procedur e are in achieved remission the resul ts section. CSF DESC 3 Routine 08/26/2021 1:25 PM Acute myeloid Results for this EST leukemia not having procedur e are in achieved remission the resul ts section. CSF DESC 2 Routine 08/26/2021 1:25 PM Acute myeloid Results for this EST leukemia not having procedur e are in achieved remission the resul ts section. CSF DESC 1 Routine 08/26/2021 1:25 PM Acute myeloid Results for this EST leukemia not having procedur e are in achieved remission the resul ts section. LEUKEMIA LYMPHOMA Routine 08/26/2021 1:25 PM Acute myeloid Res ults for this SCREEN (FORMERLY EST leukemia not having proc edure are in MALIGNANT CELL achieved remission the res ults SCREEN) section. HC PROTEIN, CSF Routine 08/26/2021 1:25 PM Acute myeloid Resul ts for this EST leukemia not having procedur e are in achieved remission the resul ts section. HC GLUCOSE, CSF Routine 08/26/2021 1:25 PM Acute myeloid Resul ts for this EST leukemia not having procedur e are in achieved remission the resul ts section. documented in this encounter Results XR Fluoro Guided Lumbar Puncture For IT Chemotherapy (08/26/2021 2:11 PM EST) Anatomical Region Laterality Modality L-spine N/A Radio Fluoroscopy Specimen (Source) Anatomical Location Collection Method / Collectio n Time Received Time / Laterality Volume Impressions 08/28/2021 1:14 PM EST Successful fluoroscopic-guided lumbar puncture for delivery of intrathecal chemotherapy without immediate complicat ion. OIL FIELD EQUIPMENT MECHANIC SUPERVISOR: Yolette Solano APRN Attending: Zaid Alford MD was present fo r orellana portions of this procedure Procedure performed by Yolette Solano APRN Thank you for letting us participate in the care of this patient. ??If you are a health care provider and have any questi ons regarding this report, please contact the number below. ??For patients who have questions please contact the health care transport nurse that requested your imaging first. ? 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 With the patient positioned prone on the fluoroscopy table, the L2-L3 interspace was localized using physical landmarks a nd fluoroscopy. The overlying skin was then prepped and draped in a sterile flynn gical fashion. A preprocedural timeout was performed per [facility] protocol. The pat ient's skin was anesthetized using less than 5 cc of 1% lidocaine without epinep hrine. A 20-gauge, 3 1/2 inch spinal needle was advanced into the subarachnoi d space, which was confirmed with return of clear cerebral spinal fluid. Opening pressure was not measured. A total of12 cc of clear cerebral spinal fluid was co llected and divided into four tubes. These tubes were sent for laboratory angela lysis, as per the ordering physician. After the fluid was collected, a hematol ogy-oncology physician administered intrathecal chemotherapy. When the intra thecal chemotherapy administration was complete the stylet was replaced and the spinal needle removed. There were no immediate complications. The patient was instructed to lie flat f or one hour following this procedure. COMPARISON: None FINDINGS: 12 cc of clear cerebrospinal f luid FLUOROSCOPY TIME: 0.20 Procedure Note Shae Alford MD - 08/28/2021Formatt ing of this note might be different from the original. 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 With the patient positioned prone on the fluoroscopy table, the L2-L3 interspace was localized using physical landmarks a nd fluoroscopy. The overlying skin was then prepped and draped in a sterile flynn gical fashion. A preprocedural timeout was performed per [facility] protocol. The pat ient's skin was anesthetized using less than 5 cc of 1% lidocaine without epinep hrine. A 20-gauge, 3 1/2 inch spinal needle was advanced into the subarachnoi d space, which was confirmed with return of clear cerebral spinal fluid. Opening pressure was not measured. A total of12 cc of clear cerebral spinal fluid was co llected and divided into four tubes. These tubes were sent for laboratory angela lysis, as per the ordering physician. After the fluid was collected, a hematol ogy-oncology physician administered intrathecal chemotherapy. When the intra thecal chemotherapy administration was complete the stylet was replaced and the spinal needle removed. There were no immediate complications. The patient was instructed to lie flat f or one hour following this procedure. COMPARISON: None FINDINGS: 12 cc of clear cerebrospinal f luid FLUOROSCOPY TIME: 0.20 IMPRESSION Successful fluoroscopic-guided lumbar pu ncture for delivery of intrathecal chemotherapy without immediate complicat ion. OIL FIELD EQUIPMENT MECHANIC SUPERVISOR: Yolette Solano APRN Attending: Zaid Alford MD was present fo r orellana portions of this procedure Procedure performed by Yolette Solano APRN Thank you for letting us participate in the care of this patient. If you are a health care provider and have any questi ons regarding this report, please contact the number below. For patients w ho have questions please contact the health care transport nurse that requested your imaging first. Electronically signed by: Shae Alford MD, [facility] ([phone]), at 08/28/2021 1:14 PM Kj Azar MD IMG FLUORO ORDERABLES CSF Culture (08/26/2021 1:45 PM EST) Component Value Ref Test Analysis Performed At [facility] Method Time Signature Central No growth [facility] Nervous [facility] LABORATORY Gram Stain Cytocentrifuge Gram Stain performed [facility] No Neutrophils seen. [place] No microorganisms seen. [facility] LABORATORY Specimen (Source) Anatomical Collection Method Collection Time Re ceived Time Location / / Volume Laterality Cerebrospinal Fluid 08/26/2021 1:45 08/26 PM EST 2:40 PM EST Resulting Agency Comment Spec In Lab Miroslava Pelayo OIL FIELD EQUIPMENT MECHANIC SUPERVISOR MICROBIOLOGY - GENERAL ORDER BRINA Performing Organization Address City/State/[place] [address] Fluid Review Report (08/26/2021 1:25 PM EST) Component Value Ref Test Analysis Performed At [facility] Range Method Time Signature Fluid Review [id number] ? Location: [address] [place] [address] The signing pathologist has (i) examined the relevant preparation(s) for the [facility] specimen(s) and (ii) rendered or confirmed the diagnosis(es) . HOSPITAL LABORATORY . ? Fl uid Review DIAGNOSIS CEREBROSPINAL FLUID: No blasts are seen on the cytocentrifuge preparation. Electronically signed by: ?Colby Coyne MD Y Verified: ??08/26/2021 17:36 ??Hematopathologist Performed at: ??-[facility] Dept. of Pathology, [place], [place] ADDITIONAL STUDIES WBC/uL: 2 RBC/uL: 20 120 cells counted on cytocentrifuge preparation. Mostly small mature lymphocytes in a background with erythro cytes. CLINICAL INFORMATION Specimen: ? CSF Clinical Diagnosis: ? 61M; h/o AML with HUB BORER disease Indication for Study: ?? IT chemo, evaluate CSF Specimen (Source) Anatomical Collection Method Collection Time Re ceived Time Location / / Volume Laterality 08/26/2021 1:25 PM EST Yolette Solano OIL FIELD EQUIPMENT MECHANIC SUPERVISOR PATHOLOGY/CYTOLOGY ORDERABLE S Performing Organization Address City/[facility]/ZIP Code Phon e Number [address] CSF Cell Count (08/26/2021 1:25 PM EST) athologist Signature Tube # Ct CSF 4 [facility] LABORATORY Nucleated CSF 2 0 - 5 /mcl [facility] LABORATORY Comment: If Nucleated CSF CT [...] correlated with clinical condition. RBC CSF CT 20 /mcl [facility] LABORATORY Lymphocyte CSF 100 % [facility] LABORATORY Tot Diff Ct CSF 120 Cells [facility] LABORATORY Specimen (Source) Anatomical Collection Method Collection Time Re ceived Time Location / / Volume Laterality Cerebrospinal Fluid 08/26/2021 1:25 08/26 PM EST 2:28 PM EST Resulting Agency Comment Spec In Lab Miroslava Pelayo OIL FIELD EQUIPMENT MECHANIC SUPERVISOR BODY FLUIDS AND STOOLS ORDER BRINA Performing Organization Address City/State/ZIP Code Phon e Number [address] CSF DESC 4 (08/26/2021 1:25 PM EST) [facility] Method Time Signature Tube Num CSF 4 [facility] #[address] [facility] LABORATORY Color CSF #4 Colorless Colorless [facility] Appear CSF #4 Clear Clear [facility] LABORATORY Tot Vol CSF #4 3.0 mL [facility] LABORATORY Specimen (Source) Anatomical Collection Method Collection Time Re ceived Time Location / / Volume Laterality Cerebrospinal Fluid 08/26/2021 1:25 08/26 PM EST 2:28 PM EST Resulting Agency Comment Spec In Lab Miroslava Pelayo OIL FIELD EQUIPMENT MECHANIC SUPERVISOR BODY FLUIDS AND STOOLS ORDER BRINA Performing Organization Address City/State/ZIP Code Phon e Number [address] CSF DESC 3 (08/26/2021 1:25 PM EST) [facility] Method Time Signature Tube Num CSF [address] [facility] [facility] LABORATORY Color CSF #3 Colorless Colorless [facility] LAB[facility] Appear CSF #3 Clear Clear [facility] LABORATORY Tot Vol CSF #3 3.0 mL [facility] LABORATORY Specimen (Source) Anatomical Collection Method Collection Time Re ceived Time Location / / Volume Laterality Cerebrospinal Fluid 08/26/2021 1:25 08/26 PM EST 2:28 PM EST Resulting Agency Comment Spec In Lab Miroslava Pelayo OIL FIELD EQUIPMENT MECHANIC SUPERVISOR BODY FLUIDS AND STOOLS ORDER BRINA Performing Organization Address City/State/[place] [address] CSF DESC 2 (08/26/2021 1:25 PM EST) [facility] DosYogures Method Time Signature Tube Num CSF [address] [facility] [facility] LABORATORY Color CSF #2 Colorless Colorless [facility] Appear CSF #2 Clear Clear [facility] LABORATORY Tot Vol CSF #2 2.9 mL [facility] LABORATORY Specimen (Source) Anatomical Collection Method Collection Time Re ceived Time Location / / Volume Laterality Cerebrospinal Fluid 08/26/2021 1:25 08/26 PM EST 2:43 PM EST Resulting Agency Comment Spec In Lab Miroslava Pelayo OIL FIELD EQUIPMENT MECHANIC SUPERVISOR BODY FLUIDS AND STOOLS ORDER BRINA Performing Organization Address City/[facility]/ZIP Code Phon e Number [address] CSF DESC 1 (08/26/2021 1:25 PM EST) Patholo gist Method Time Signature Tube Num CSF 1 [facility] #[address] [facility] LABORATORY Color CSF #1 Colorless Colorless [facility] Appear CSF #1 Clear Clear [facility] LABORATORY Tot Vol CSF #1 3.0 mL [facility] LABORATORY Specimen (Source) Anatomical Collection Method Collection Time Re ceived Time Location / / Volume Laterality Cerebrospinal Fluid 08/26/2021 1:25 08/26 PM EST 2:28 PM EST Resulting Agency Comment Spec In Lab Miroslava Pelayo OIL FIELD EQUIPMENT MECHANIC SUPERVISOR BODY FLUIDS AND STOOLS ORDER BRINA Performing Organization Address City/[facility]/ZIP Code Phon e Number [address] Protein Level CSF (08/26/2021 1:25 PM EST) P athologist Signature T Protein, CSF 21 15 - 45 [facility]dL [facility] LAB[facility] Xanthochromia Neg [facility] LABORATORY Specimen (Source) Anatomical Collection Method Collection Time Re ceived Time Location / / Volume Laterality Cerebrospinal Fluid 08/26/2021 1:25 08/26 PM EST 2:28 PM EST Resulting Agency Comment Spec In Lab Miroslava Pelayo APRN BODY FLUIDS AND STOOLS ORDER BRINA Performing Organization Address City/[facility]/ZIP Code Phon e Number [address] Glucose Level CSF (08/26/2021 1:25 PM EST) P athologist Signature Glucose, CSF 63 mg/dL [facility] LABORATORY Comment: CSF at equilibrium equals appro ximately 60-80% of plasma glucose. Specimen (Source) Anatomical Collection Method Collection Time Re ceived Time Location / / Volume Laterality Cerebrospinal Fluid 08/26/2021 1:25 08/26 PM EST 2:28 PM EST Resulting Agency Comment Spec In Lab Miroslava Pelayo OIL FIELD EQUIPMENT MECHANIC SUPERVISOR BODY FLUIDS AND STOOLS ORDER BRIAN Performing Organization Address City/[facility]/[place] [address] Leukemia Lymphoma Screen Cerebrospinal Fluid (08/26/2021 1:25 PM EST) Patholo gist Method Time Signature LLS BF Type CSF [facility] LABORATORY Leukemia See Comment [facility] Lymphoma [facility] LABORATORY Comment: See Fluid Review Report [id number] under Hematopathology Reports. Specimen (Source) Anatomical Collection Method Collection Time Re ceived Time Location / / Volume Laterality Cerebrospinal Fluid 08/26/2021 1:25 08/26 PM EST 2:28 PM EST Resulting Agency Comment Spec In Lab Miroslava Pelayo OIL FIELD EQUIPMENT MECHANIC SUPERVISOR BODY FLUIDS AND STOOLS ORDER BRINA Performing Organization Address City/[facility]/[place] [address] documented in this encounter Visit Diagnoses Diagnosis 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 difficileComment: C. diffiicile 08/20/2021 testing positive 05/25/21. documented as of this encounter Care Teams Acid Splicer Relationship Specialty Start Date End Date Beatriz Maurice PA PCP - General Family Medicine 05/06/21 [address] [place] [address] documented as of this encounter
--- OUTSIDE RECORDS SUMMARY | 2022-02-14 11:16 | XMS_ITS | Encounter Summary ---
:1960 Author Organization [facility] Address [facility] [place] [address] Care Team Providers Name Role Phone Beatriz Maurice Primary Care Provider Encounter Details Date Type Department Care Team Description 09/09/2021 Orders Only Hematology and Pierce, Miroslava Spivey, Acute my eloid leukemia Oncology at [facility] [employer]OL SYSTEMS DEVELOPER not having achieved [facility] [place] [address] HEMATOLOGY/ONCOLOG [phone] Y DEPT. [place] [address] Social History Tobacco Use Types Packs/Day [...] MD [facility] DR HEMATOLOGY/[place] [address] Miroslava Pelayo APRN [facility] HEMATOLOGY/[place] [address] 02/24/2022 Office Visit Wound Care 02/24/2022 Appointment Hematology and Oncology 02/26/2022 Office Visit Neurology Leni Bustamante MD [facility] ER DR NEUROLOGY DEPT. [place], [place] [address] (Wo rk) documented as of [...] who have questions please contact the health respiratory care practitioner that requested your imaging first. ? 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 EXAMINATION: XR FLUORO GUIDED LUMBAR PUN CTURE FOR IT CHEMOTHERAPY CLINICAL HISTORY: horticulture professor disease COMPARISON: 09/05/2021 FINDINGS: Written informed consent [...] ho have questions please contact the health respiratory care practitioner that requested your imaging first. Electronically signed by: Yolette reyes [facility] ([phone]), at 09/09/2021 2:42 PM Miroslava [place] [facility] IMG FLUORO ORDERABLES Leukemia Lymphoma Screen Cerebrospinal Fluid (09/09/2021 1:45 PM EST) [facility] Method Time Signature LLS BF Type CSF [facility] Leukemia See Comment [facility] Lymphoma [facility] Comment: See Fluid Review Report [id number] under Hematopathology Reports. Specimen (Source) Anatomical Collection Method Collection Time Re ceived Time Location / / Volume Laterality Cerebrospinal Fluid 09/09/2021 1:45 09/09 PM EST 2:26 PM EST Resulting Agency Comment Spec In Lab Miroslava Spivey Pierce CONTROL SYSTEMS DEVELOPER BODY FLUIDS AND STOOLS ORDER BRINA Performing Organization Address City/[facility]/[place] [address] CSF Culture (09/09/2021 1:45 PM EST) Component Value Ref Test Analysis Performed At [facility] gist Range Method Time Signature Central No growth [facility] Nervous [facility] Gram Stain Cytocentrifuge Gram Stain performed [facility] No Neutrophils seen. [facility] No microorganisms seen. [facility] Specimen (Source) Anatomical Collection Method Collection Time Re ceived Time Location / / Volume Laterality Cerebrospinal Fluid 09/09/2021 1:45 09/09 PM EST 2:38 PM EST Resulting Agency Comment Spec In Lab Miroslava Spivey Pierce [facility] MICROBIOLOGY - GENERAL ORDER BRINA Performing Organization Address City/[facility]/[place] [address] Glucose Level CSF (09/09/2021 1:45 PM EST) athologist Signature Glucose, CSF 62 mg/dL [facility] Comment: CSF at equilibrium equals appro ximately 60-80% of plasma glucose. Specimen (Source) Anatomical Collection Method Collection Time Re ceived Time Location / / Volume Laterality Cerebrospinal Fluid 09/09/2021 1:45 09/09 PM EST 2:26 PM EST Resulting Agency Comment Spec In Lab Miroslava Pelayo CONTROL SYSTEMS DEVELOPER BODY FLUIDS AND STOOLS ORDER BRINA Performing Organization Address City/[facility]/ZIP Code Phon e Number [address] Protein Level CSF (09/09/2021 1:45 PM EST) athologist Signature T Protein, CSF 33 15 - 45 [facility] Xanthochromia Slight [facility] Specimen (Source) Anatomical Collection Method Collection Time Re ceived Time Location / / Volume Laterality Cerebrospinal Fluid 09/09/2021 1:45 09/09 PM EST 2:26 PM EST Resulting Agency Comment Spec In Lab Miroslava Pelayo CONTROL SYSTEMS DEVELOPER BODY FLUIDS AND STOOLS ORDER BRINA Performing Organization Address City/[facility]/[place] [address] documented in this encounter Visit Diagnoses Diagnosis Acute myeloid leukemia not 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 difficileComment: C. diffiicile 08/20/2021 testing positive 05/25/21. documented as of this encounter Care Teams Chief Privacy Officer Relationship Specialty Start Date End Date Beatriz Maurice PA PCP - General Family Medicine 05/06/21 [address] [place] [address] documented as of this encounter
--- OUTSIDE RECORDS SUMMARY | 2022-02-14 11:16 | XMS_ITS | Encounter Summary ---
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 Ostomy Supplies Misc Dispense 2 boxes 40 each 2 (20/box) of Brava Elastic Barrier strips #[id number] per month. Ostomy Supplies Misc Dispense 1 [...] as of this encounter Progress Notes Miroslava Pelayo APRN - 08/26/2021 1:15 PM EST Intrathecal Chemotherapy Administration Procedure Note Location: IR-radiology performed LP under fluoroscopy guide Time of Procedure: 1356 Diagnosis: AML RN/ACCOUNT LEADER/MD: Marcela Gutiérrez RN / Miroslava Pelayo APRN Procedure: Intrathecal chemo with LP performed under fluoroscopy guide Pre-Procedure Checklist: ( X ) Patient identity confirmed. ( X ) Patient education regarding procedure and discharge instructions provided. ( X ) Allergy list confirmed. ( X ) CBC drawn within 3 days. PT/PTT drawn AM of procedure ?? Platelet count >25,000 ?? Coag studies within normal limits Consent: consent obtained during original inpatient hospitalization. Patient re- consented using ADULT FLUOROSCOPIC INTRATHECAL CHEMOTHERAPY CONSENT which has been scanned into chart today and will be valid for 1 year. Pre-medication: Lorazepam 0.5mg oral and Zofran 8mg oral, given at least 30 minutes prior to procedure Pre-administration Safety Check: Safety sweep performed. Patient identity (with name, , and MRN),intended procedure, drug names/route/date/doses/volume all confirmed with patient's RN. Same items again confirmed against patient's wristband and [place] treatment plan/MAR chemo orders. Sterile Condition: Sterile technique was maintained during IT chemotherapy administration. Procedure: CSF was removed by fluoroscopy radiology team and sent for requested studies. Cytarabine 100mg and Hydrocortisone 50mg all combined in a volume of 6mL was administered intrathecally over thecourse of 6 minutes. Post intervention assessment: Patient had no complaints. Estimated blood loss: none Follow-up: Patient instructed to call with any symptoms of concern, including but not limited to thefollowing; headache, nausea, vomiting, focal neurological symptoms, visual symptoms, fever, chills, bleeding or drainage from LP site. Miroslava Pelayo, MSN, [facility]WYER Nurse Practition[place] [address] Marcela Gutiérrez RN - 08/26/2021 11:16 AM EST Patient Name: Herber Iverson Jr. Patient Age: 61 y.o. Birthdate: 1960 Admit date: 08/26/2021 Attending Physician: No att. providers found Patient is here for transfusion of 2 units of PRBC'S. Hg 5.2, Herber came in to infusion using a rolling walker, states has no complaints, feeling fine. Scheduled to have LP at 1230 today and receive blood 2nd unit when he returns Prior to transfusion initiation, RN educated patient regarding signs and symptoms of a transfusion reaction as follows: Fever, chills/rigors, nausea/vomiting, hypotension, bloody or dark urine, cough, dyspnea, SOB, wheezing, hypoxemia, decreased O2 saturations, back or flank pain, headache, infusion site pain. Directed patient to alert staff right away if beginning to experience any of these signs/symptoms. Patient verbalized understanding. Patient tolerated transfusion with out issue signs or symptoms of complication. RN shared [facility] Information for Transfusion Recipients (Form [id number]) with patient via AVS. RN directed them to call clinic or hospital if any listed signs/symptoms develop within the next 24 hours, orgo to the emergency department if more urgent care is needed. Patient verbalized understanding. documented in this encounter Plan of Treatment Upcoming Encounters Date Type Specialty Care Team Description 02/18/2022 Infusion Hematology and Oncology 02/21/2022 Infusion Hematology and Oncology 02/24/2022 Appointment Hematology and Oncology 02/24/2022 Office Visit Hematology and Oncology Parviz Modi MD [facility] DR HEMATOLOGY/[place] [address] Miroslava Pelayo APRN [facility] DR HEMATOLOGY/[place] [address] 02/24/2022 Office Visit Wound Care 02/24/2022 Appointment Hematology and Oncology 02/26/2022 Office Visit Neurology Leni Bustamante MD [facility] ER DR NEUROLOGY DEPT. [place], [place] [address] (Wo rk) documented as of this encounter Procedures Procedure Name Priority Date/Time Associated Diagnosis Comme nts LAB SCAN 08/28/2021 12:00 AM EST TRANSFUSE RED BLOOD Routine 08/26/2021 2:43 PM Acute myeloid CELLS EST leukemia not having achieved remission TRANSFUSE RED BLOOD Routine 08/26/2021 10:52 AM Acute myeloid CELLS EST leukemia not having achieved remission PREPARE RBC Routine 08/26/2021 9:23 AM Results f or this EST procedure are i n the results section. PREPARE RBC Routine 08/26/2021 9:15 AM Acute myeloid Results for this EST leukemia not having procedur e are in achieved remission the resul ts section. documented in this encounter Results SCAN DOC: LAB (08/28/2021 12:00 AM EST) Narrative This result has an attachment that is no t available. Unknown MEDIA MGR SCAN EXT ORDR/RSLT Transfuse RBC (08/26/2021 4:33 PM EST) Parviz Modi MD NURSING TREATMENT ORDERABLES - BLOOD ADMIN Transfuse RBC (08/26/2021 4:33 PM EST) Parviz Modi MD NURSING TREATMENT ORDERABLES - BLOOD ADMIN Transfuse RBC (08/26/2021 12:26 PM EST) Parviz Modi MD NURSING TREATMENT ORDERABLES - BLOOD ADMIN Prepare RBC (08/26/2021 9:23 AM EST) P athologist Signature Dispensed? Yes [facility] Specimen Anatomical Collection Method Collection Time Receive d Time (Source) Location / / Volume Laterality Blood No Charge / 08/26/2021 9:23 AM 9:23 Unknown EST AM EST Resulting Agency Comment Spec In Lab Parviz Modi MD BLOOD BANK ORDERABLES Performing Organization Address City/State/[place] [address] [facility] [address] Prepare RBC (08/26/2021 9:15 AM EST) P athologist Signature Dispensed? Yes [facility] Specimen Anatomical Collection Method Collection Time Receive d Time (Source) Location / / Volume Laterality Blood 08/26/2021 9:15 AM 9:14 EST AM EST Resulting Agency Comment Spec In Lab Parviz Modi MD BLOOD BANK ORDERABLES Performing Organization Address City/[facility]/[place] [address] [facility] [address] documented in this encounter Visit [...] Date Dose Rate Site hydrocortisone sodium succinate (PF) Given 08/26/2021 1:56 PM ES T (Solu-CORTEF) 50 mg, cytarabine (PF) (Elke-C) 100 mg, sodium chloride 0.9% 2.5 mL INTRATHECAL injection Intrathecal, ONCE, 1 dose, On Thu08/26/21 at 1115, Administer over 6 Minutes, 1) Recommend the following labs be ordered prior to intrathecals: Platelet, PT/INR, and APTT. For intrathecal administration only. 2) GIS PHYSICAL SCIENTIST prophylaxis (intrathecal therapy) given on days 2 and 7 with each cycle for 16 treatments. If there is a GIS PHYSICAL SCIENTIST involvement, intrathecal therapy augmented to twice weekly until CSF cell count normalized and cytology is negative for malignant cells. If there GIS PHYSICAL SCIENTIST involvement give intrathecal therapy alternating with methotrexate and cytarabine weekly for 4 doses (including planned intrathecal on days 2 and 7 if course is given). 3) All intrathecal products mixed with preservative-free normal saline and prepared in a total volume of 6 mL. LORazepam (Ativan) tablet 0.5 mg Given 08/26/2021 12:17 PM EST 0.5 mg 0.5 mg, Oral, ONCE, 1 dose, On Thu08/26/21 at 1215, Administer prior to intrathecal chemotherapy., Routine ondansetron (Zofran) tablet 8 mg Given 08/26/2021 12:17 PM EST 8 mg 8 mg, Oral, ONCE, 1 dose, On 08/26/21 at 1215, Administer prior to intrathecal chemotherapy. [...] documented as of this encounter Care Teams Ship'S Carpenter Relationship Specialty Start Date End Date Beatriz Maurice PA PCP - General Family Medicine 05/06/21 [address] [place] [address] documented as of this encounter
--- OUTSIDE RECORDS SUMMARY | 2022-02-14 11:16 | XMS_ITS | Encounter Summary ---
:1960 Author Organization [facility] [place] [address] Care Team Providers Name Role Phone Beatriz Maurice Primary Care Provider Reason for Visit Reason Onset Date Comments Medication Problem 09/04/2021 Encounter Details Date Type Department Care Team Description 09/04/2021 Telephone Hematology and Oncology at [place] [place] [address] Social History Tobacco Use Types Packs/Day [...] this encounter Miscellaneous Notes Telephone Encounter - Anahi Winters RN - 09/04/2021 12:43 PM EST Message received from junior legal secretary: Patient called looking to speak with a nurse about his prescriptions and sending them to a differentpharmacy. RN Reviewed Chart: patient requested [facility] in [place], [place]. Scripts placed by Miroslava Pelayo were indeed sent to this pharmacy. RN called and spoke with Herber. He called [employer] and they report his balance is $9850 as of 09/03/21. Original award was $10K. RNinstructed him to check balance again in 1 month and then can figure out how often to check from there. Intent is to know that he needs MAP enrollment before citlali hits $0. He knows about 5 scripts at his local [facility]. He wonders about some of the others. RN reviewed list with him: Gabapentin not renewed as should no longer need it-was supplied for back pain r/t BM Bx back when hewas inpatient. He confirms he is not having back pain anymore. RN instructed him to call office if it returns after he stops med. Imodium: is available OTC and likely cheaper that way. He can ask ostomy folks about a refill if that's not true. Bactrim: he reports he is all out. Script was written 08/07 take 3 pills/week with 30 pills=10 week supply. He reports he only took it M/W/. He can't read the label; Morales will call me later to read label for quantity of pills to see if dispense amount different and so RN can confirm med administration since Morales sets this up for him. Pantoprazole 40 mg once daily: not on patient med list. He reports he was on this before coming intothe hospital. RN told him Pepcid is what is on his med list not Pantoprazole. Please contact PCP office that gave him the script to discuss and update orders otherwise he should not take the Pantoprazole as this is not prescribed to him and he should instead ask for refill of Pepcid via PCP office whois managing this condition for him. documented in this encounter Plan of Treatment Upcoming Encounters Date Type Specialty Care Team Description 02/18/2022 Infusion Hematology and Oncology 02/21/2022 Infusion Hematology and Oncology 02/24/2022 Appointment Hematology and Oncology 02/24/2022 Office Visit Hematology and Oncology Parviz Modi MD [facility] HEMATOLOGY/[place] [address] Miroslava Pelayo APRN [facility] DR HEMATOLOGY/[place] [address] 02/24/2022 Office Visit Wound Care 02/24/2022 Appointment Hematology and Oncology 02/26/2022 Office Visit Neurology Leni Bustamante MD [facility] NEUROLOGY DEPT. [place], [place] [address] (Wo rk) documented as of this encounter Visit Diagnoses Not on filedocumented in this encounter Additional Health Concerns Infection Onset Date Last Indicated Resolved Time History of C. difficileComment: C. diffiicile 08/20/2021 testing positive 05/25/21. documented as of this encounter Care Teams Tile Layer Drainage Relationship Specialty Start Date End Date Beatriz Maurice PA PCP - General Family Medicine 05/06/21 [address] [place] [address] documented as of this encounter
--- OUTSIDE RECORDS SUMMARY | 2022-02-14 11:16 | XMS_ITS | Encounter Summary ---
:1960 Author Organization [facility] Address [facility] [place] [address] Care Team Providers Name Role Phone Beatriz Maurice Primary Care Provider Encounter Details Date Type Department Care Team Description 09/09/2021 Orders Only Hematology and Pierce, Miroslava Spivey, Acute my eloid leukemia Oncology at [facility] LEASING DIRECTOR not having achieved [facility] [address] [place] [address] HEMATOLOGY/ONCOLOG [phone] [address] [place]PT[address] [place] [address] Social History Tobacco Use Types Packs/Day [...] Visit Hematology and Oncology Parviz Modi MD [facility] DR HEMATOLOGY/[place] [address] Miroslava Pelayo APRN [facility] HEMATOLOGY/[place] [address] 02/24/2022 Office Visit Wound Care 02/24/2022 Appointment Hematology and Oncology 02/26/2022 Office Visit Neurology Leni Bustamante MD [facility] DR NEUROLOGY DEPT. [place], [place] [address] (Wo rk) documented as of this encounter Visit Diagnoses Diagnosis 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 difficileComment: C. diffiicile 08/20/2021 testing positive 05/25/21. documented as of this encounter Care Teams Mva Operator Relationship Specialty Start Date End Date Beatriz Maurice PA PCP - General Family Medicine 05/06/21 [address] [place] [address] documented as of this encounter
--- OUTSIDE RECORDS SUMMARY | 2022-02-14 11:16 | XMS_ITS | Encounter Summary ---
:1960 Author Organization [facility] [place] [address] Care Team Providers Name Role Phone Beatriz Maurice Primary Care Provider Reason for Visit Reason Comments Chemotherapy Anemia Treatment/Therapy Plan Authorization (Routine) - Closed Specialty Diagnoses / Procedures Referred By Contact Refer red To Contact Diagnoses Acute leukemia not having achieved remission Walter Murcia MD Ip Hem Onc [facility] HEMATOLOGY/[place] [address] [place] [address] Referral ID Status Reason Start Date Expiration Date Visits Requ ested Visits Authorized [id number] Closed 07/15/2021 07/15/2022 99 99 Encounter Details Date Type Department Care Team Description 09/05/2021 Hospital Encounter Hematology and Acute m yeloid leukemia not having achieved remission; Oncology at [facility] Acute leukemia not [place] [address] Social History Tobacco Use Types Packs/Day [...] Sign Reading Time Taken Comments Blood Pressure 115/89 09/05/2021 4:44 PM EST Pulse 75 09/05/2021 4:44 PM EST Temperature 36.5 ??C (97.7 ??F) 09/05/2021 4:44 PM EST Respiratory Rate 15 09/05/2021 4:44 PM EST Oxygen Saturation 99% 09/05/2021 4:44 PM EST Inhaled Oxygen Concentration - - [...] boxes 20 each 2 (10/box) of Sensura [place] Soft Convex One-piece Pouch #[id number] per month. Ostomy Supplies Misc Dispense 2 boxes 40 each 2 (20/box) of Brava Elastic Barrier strips #[id number] per month. Ostomy Supplies Misc Dispense 1 box (50/box) 50 each of a generic no-sting skin barrier wipe per month. sulfamethoxazole-trim Take 1 tablet by mouth 12 tablet 11/18/2021 ethoprim DS (Bactrim three times a week. DS) 800-160 mg Tablet fluconazole Take 2 tablets by mouth 60 tablet 08/28/2021 09/27/2021 (Diflucan) 200 mg daily for 30 days. Tablet acyclovir (Zovirax) Take 1 tablet by mouth 60 tablet 08/1711/18/2021 400 mg Tablet 2 times daily. levoFLOXacin Take 1 tablet by mouth 30 tablet 08/28/2021 11/18/2021 (Levaquin) 750 mg daily. Tablet [...] FLT3 mutation Colostomy Belt Dispense 1 Sensura Pageland 1 each 2 12/13/2021 (Ostomy Belt Medium) [...] encounter Progress Notes ForSerenity garcia APRN - 09/05/2021 4:49 PM EST Patient Name: Herber Iverson Jr. Patient Age: 61 y.o. Birthdate: 1960 Admit date: 09/05/2021 Attending Physician: No att. providers found Intrathecal Chemotherapy Administration Procedure Note ?? Location: IR-radiology performed LP under fluoroscopy guide ?? Time of Procedure: 1625 ?? Diagnosis: AML Serenity Talbot HYDROPRESS OPERATOR, Ana Hummel HYDROPRESS OPERATOR ?? Procedure: Intrathecal chemo with LP performed [...] items again confirmed against patient's wristband and [place] treatment plan/MAR chemo orders. ?? Sterile Condition: [...] bleeding or drainage from LP site. ?? Serenity Talbot, MSN, HYDROPRESS OPERATOR Nurse Practitioner Section [place] [address] Julianne León RN - 09/05/2021 4:48 PM EST Patient Name: Herber Iverson Jr. Patient Age: 61 y.o. Birthdate: 1960 Admit date: 09/05/2021 Herber Iverson Jr., 61 y.o. male with diagnosis of 1. Acute myeloid leukemia not having achieved remission 2. Acute leukemia not having achieved remission is here for chemotherapy injection of intrathecal Solucortef, cytarabine and NS per order . PROTOCOL:no CYCLE: 3 DAY: additional S: Pt. offers no complaints at this time. O: Chemotherapy orders independently verified for correct drug name, route and dosage per patient's height, weight and BSA by Julianne Hunt RN and onsite pharmacist. Chemotherapy administered per [facility] policy. REACTIONS (DESCRIPTION, TIME, INTERVENTION AND EFFECTIVENESS) none A: Pt. Tolerated treatment well. Herber Iverson Jr. confirms that all questions and issues have been addressed. IT chemo Was given in IR with Alix Hummel and Serenity Talbot. Double checks of medication done at bedside with Miroslava Pelayo and Serenity Talbot. Needle time out 1626. Puncture site CDI. Post procedure VSS. P: Return to clinic as scheduled documented in this encounter Plan of Treatment Upcoming Encounters Date Type Specialty Care Team Description 02/18/2022 Infusion Hematology and Oncology 02/21/2022 Infusion Hematology and Oncology 02/24/2022 Appointment Hematology and Oncology 02/24/2022 Office Visit Hematology and Oncology Parviz Modi MD [facility] DR HEMATOLOGY/[place] [address] Miroslava Pelayo APRN [facility] HEMATOLOGY/[place] [address] 02/24/2022 Office Visit Wound Care 02/24/2022 Appointment Hematology and Oncology 02/26/2022 Office Visit Neurology Leni Bustamante MD [facility] DR NEUROLOGY DEPT. [place], [place] [address] (Wo rk) Pending Results Name Type Priority Associated Diagnoses Date/Ti me Transfuse RBC Blood Bank Routine Acute myeloid leukemia not 09/05/2021 11:52 AM EST having achieved remission documented as of this encounter Procedures Procedure Name Priority Date/Time Associated Diagnosis Comme nts PREPARE RBC Routine 09/05/2021 10:45 AM Acute myeloid Results for this EST leukemia not having procedur e are in the achieved remission results s ection. documented in this encounter Results Prepare RBC (09/05/2021 10:45 AM EST) P athologist Signature Dispensed? Yes [facility] Specimen Anatomical Collection Method Collection Time Receive d Time (Source) Location / / Volume Laterality Blood 09/05/2021 10:45 09/05/2021 AM EST 10:44 AM EST Resulting Agency Comment Spec In Lab Hayley Palmer APRN BLOOD BANK ORDERABLES Performing Organization Address City/State/[place] [address] documented in this encounter [...] Dose Rate Site hydrocortisone sodium succinate Given 09/05/2021 4:20 PM EST 60 mL/hr (PF) (Solu-CORTEF) 50 mg, cytarabine (PF) (Elke-C) 100 mg, sodium chloride 0.9% 2.5 mL INTRATHECAL injection Intrathecal, ONCE, 1 dose, On Kassy 09/05/21 at 1130, Administer over 6 Minutes, 1) Recommend the following labs be ordered prior to intrathecals: Platelet, PT/INR, and APTT. For intrathecal administration only. 2) STRATEGIC BUSINESS DEVELOPMENT prophylaxis (intrathecal therapy) given on days 2 and 7 with each cycle for 16 treatments. If there is a STRATEGIC BUSINESS DEVELOPMENT involvement, intrathecal therapy augmented to twice weekly until CSF cell count normalized and cytology is negative for malignant cells. If there STRATEGIC BUSINESS DEVELOPMENT involvement give intrathecal therapy alternating with methotrexate and cytarabine weekly for 4 doses (including planned intrathecal on days 2 and 7 if course is given). 3) All intrathecal products mixed with preservative-free normal saline and prepared in a total volume of 6 mL. LORazepam (Ativan) tablet 0.5 mg Given 09/05/2021 1:57 PM EST 0.5 mg 0.5 mg, Oral, ONCE, 1 dose, On Kassy 09/05/21 at 1215, Administer prior to intrathecal chemotherapy., Routine ondansetron (Zofran) tablet 8 mg Given 09/05/2021 1:57 PM EST 8 mg 8 mg, Oral, ONCE, 1 dose, On Kassy 09/05/21 at 1215, Administer prior to intrathecal chemotherapy. [...] documented as of this encounter Care Teams In Service Educator Relationship Specialty Start Date End Date Beatriz Maurice PA PCP - General Family Medicine 05/06/21 [address] [place] [address] documented as of this encounter
--- OUTSIDE RECORDS SUMMARY | 2022-02-14 11:16 | XMS_ITS | Encounter Summary ---
:1960 Author Organization [facility] Address [address] [place] [address] Care Team Providers Name Role Phone Beatriz Maurice Primary Care Provider Reason for Visit Reason Comments Follow-up Encounter Details Date Type Department Care Team Description 09/05/2021 Office Visit Hematology and Nano, Acute myeloid leukemia Oncology at [facility] MD Moisés not having achieved [facility] [address] [place]/ON[place]OG [address] Y DEPT. [phone] [place], [place] [address] Social History Tobacco Use Types [...] Sign Reading Time Taken Comments Blood Pressure 126/77 09/05/2021 9:20 AM EST Pulse 94 09/05/2021 9:20 AM EST Temperature 36.4 ??C (97.5 ??F) 09/05/2021 9:20 AM EST Respiratory Rate 17 09/05/2021 9:20 AM EST Oxygen Saturation 98% 09/05/2021 9:20 AM EST Inhaled Oxygen Concentration - - Weight 106.8 kg (235 lb 6.4 oz) 09/05/2021 9:20 AM EST Height 180.4 cm (5' 11.02) 09/05/2021 9:20 AM EST shoe s on Body Mass Index 32.81 09/05/2021 9:20 AM EST documented in this encounter Progress Notes Miroslava Pelayo APRN - 09/05/2021 9:30 AM EST Error documented in this encounter Plan of Treatment Upcoming Encounters Date Type Specialty Care Team Description 02/18/2022 Infusion Hematology and Oncology 02/21/2022 Infusion Hematology and Oncology 02/24/2022 Appointment Hematology and Oncology 02/24/2022 Office Visit Hematology and Oncology Parviz Modi MD [facility] DR HEMATOLOGY/[place] [address] Miroslava Pelayo APRN [facility] DR HEMATOLOGY/[place] [address] 02/24/2022 Office Visit Wound Care 02/24/2022 Appointment Hematology and Oncology 02/26/2022 Office Visit Neurology Leni Bustamante MD [facility] NEUROLOGY DEPT. [place], [place] [address] (Wo rk) documented as of this encounter Visit Diagnoses Diagnosis 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 difficileComment: C. diffiicile 08/20/2021 testing positive 05/25/21. documented as of this encounter Care Teams Radio Disc Jockey Relationship Specialty Start Date End Date Beatriz Maurice PA PCP - General Family Medicine 05/06/21 [address] [place] [address] documented as of this encounter
--- OUTSIDE RECORDS SUMMARY | 2022-02-14 11:16 | XMS_ITS | Encounter Summary ---
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 Ostomy Supplies [facility] Dispense 2 boxes 20 each 2 (10/box) of Sensura Flako Soft Convex One-piece Pouch #[id number] per month. Ostomy Supplies [facility] Dispense 2 boxes 40 each 2 (20/box) of Brava Elastic Barrier strips #[id number] per month. Ostomy Supplies [facility] Dispense 1 box [...] FLT3 mutation Colostomy Belt Dispense 1 Sensura Carl[place] 1 each 2 12/13/2021 (Ostomy Belt Medium) Belt #[id number] per month. [facility] enoxaparin (Lovenox) Inject [...] Hematology and Oncology Parviz Modi MD [facility] DR HEMATOLOGY/[place] [address] Miroslava Pelayo APRN [facility] DR HEMATOLOGY/[place] [address] 02/24/2022 Office Visit Wound Care 02/24/2022 Appointment Hematology and Oncology 02/26/2022 Office Visit Neurology Leni Bustamante MD [facility] [address] NEUROLOGY DEPT. [place], [place] [address] (Wo rk) documented as of this encounter Procedures Procedure Name Priority Date/Time Associated Diagnosis Comme nts TYPE AND SCREEN STAT 09/05/2021 8:27 AM Result s for this VALIDITY EST procedure are i n the results section. ABORH RECHECK STATUS STAT 09/05/2021 8:27 AM R esults for this EST procedure are i n the results section. SCAN, PERIPHERAL STAT 09/05/2021 8:27 AM Resul ts for this BLOOD EST procedure are i n the results section. HEMOGRAM STAT 09/05/2021 8:27 AM Acute myeloid Results for this EST leukemia not having procedur e are in achieved remissi on the results Anemia, unspecified section. 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 ce S/P partial resection of colon DIFFERENTIAL, STAT 09/05/2021 8:27 AM Acute myeloid Results for this AUTOMATED EST leukemia not having procedur e are in achieved remissi on the results Anemia, unspecified section. 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 ce S/P partial resection of colon LAB SCAN 09/05/2021 12:00 AM EST documented in this encounter Results Type and Screen Validity (09/05/2021 8:27 AM EST) [facility] Method Time Signature T&S only valid [facility]ORATORY Comment: This Type and Screen result is only valid at the [facility] Specimen Anatomical Collection Method Collection Time Receive d Time (Source) Location / / Volume Laterality Blood 09/05/2021 8:27 AM 2 8:34 EST AM EST Resulting Agency Comment Spec In Lab Parviz Modi MD BLOOD BANK ORDERABLES Performing Organization Address City/[facility]/[place] [address] Scan, Peripheral Blood (09/05/2021 8:27 AM EST) [facility] Method Time Signature Plat Estimate Decreased [facility] RBC Morphology Abnormal [facility] Microcytes 1-5 /HPF [facility] Polychromasia Present >5/HPF [facility] Tear Drop Cells 1-5 /HPF [facility] Giant Platelets Less than 1 /HPF [facility] Specimen Anatomical Collection Method Collection Time Receive d Time (Source) Location / / Volume Laterality Blood 09/05/2021 8:27 AM 2 8:31 EST AM EST Resulting Agency Comment Spec In Lab Parviz Modi MD HEMATOLOGY ORDERABLES Performing Organization Address City/[facility]/[place] [address] ABORH Recheck Status (09/05/2021 8:27 AM EST) [facility] Method Time Signature ABORH Type Completed [facility] LABORATORY Specimen Anatomical Collection Method Collection Time Receive d Time (Source) Location / / Volume Laterality Blood 09/05/2021 8:27 AM 2 8:34 EST AM EST Resulting Agency Comment Spec In Lab Parviz Modi MD BLOOD BANK ORDERABLES Performing Organization Address City/[facility]/[place] [address] Antibody screen (09/05/2021 8:27 AM EST) [facility] Method Time Signature Ab Screen Negative [facility] LABORATORY Expires at 09/08/2021 [facility] [address]9 on: [facility] Specimen Anatomical Collection Method Collection Time Receive d Time (Source) Location / / Volume Laterality Blood 09/05/2021 8:27 AM 2 8:34 EST AM EST Resulting Agency Comment Spec In Lab Parviz Modi MD BLOOD BANK ORDERABLES Performing Organization Address City/[facility]/[place] [address] ABO/Rh Typing (09/05/2021 8:27 AM EST) P athologist Signature ABORh Type O Pos [facility] Specimen Anatomical Collection Method Collection Time Receive d Time (Source) Location / / Volume Laterality Blood 09/05/2021 8:27 AM 2 8:34 EST AM EST Resulting Agency Comment Spec In Lab Parviz Modi MD BLOOD BANK ORDERABLES Performing Organization Address City/[facility]/ZIP [facility] [place] [address] (ABNORMAL) Differential, Automated (09/05/2021 8:27 AM EST) [facility] Method Time Signature Neutrophils % 51.2 % [facility] Neutr Abs (ANC) 0.65 (L) 1.70 - [facility] 6.10 [place] x10(3)/[facility] LABORATORY Lymphocytes % 44.9 % [facility] Lymphocytes Abs 0.6 (L) 0.9 - 3.2 [facility] x10(3)/[facility] LABORATORY Monocytes % 3.1 % [facility] Monocyte Abs 0.0 (L) 0.3 - 0.9 [facility] x10(3)/[facility] LABORATORY Eosinophils % 0.0 % [facility] Eosinophils Abs 0.0 0.0 - 0.4 [facility] x10(3)/[facility] LABORATORY Basophils % 0.0 % [facility] Basophils Abs 0.0 0.0 - 0.1 [facility] x10(3)/[facility] LABORATORY Immature Gran % 0.80 % [facility] Comment: Immature granulocytes(IG's)percentage an d absolute count will include metamyelocytes, myelocytes, and promyelo cytes. Blood smears from CBCs yielding IG's will be scanned manually for concor dance. If this scan disagrees with the automated IG or if promyelocytes are not ed, a manual differential will be performed. Zara Gran Abs 0.01 0.00 - 0.04 x10(3)/[facility] LAB[facility]ORY Specimen Anatomical Collection Method Collection Time Receive d Time (Source) Location / / Volume Laterality Blood 09/05/2021 8:27 AM 8:31 EST AM EST Resulting Agency Comment Spec In Lab Parviz Modi MD HEMATOLOGY ORDERABLES Performing Organization Address City/State/ZIP Code Phon e Number [place] [id number] HOS[address] LAB[address] (ABNORMAL) Hemogram (09/05/2021 8:27 AM EST) [facility] gist Method Time Signature WBC 1.3 4.0 - 9.5 [facility] (Critical) x10(3)/[facility] LABORATORY RBC 2.12 (L) 4.58 - [facility] 5.54 [place] x10(6)/[facility] LABORATORY Hemoglobin 6.7 (L) 13.7 - [facility] 16.[facility] g/dL [facility] Hematocrit 20.1 (L) 40.5 - [facility] 48.5 % [facility] MCV 94.8 (H) 82.9 - [facility] 93.1 fL [facility] MCH 31.6 27.5 - [facility] 32.1 [facility] LABORATORY MCHC 33.3 32.0 - [facility] 35.7 g/dL [facility] Platelets 68 (L) 145 - 357 [facility] x10(3)/[facility] LABORATORY RDWSD 50.0 (H) 36.0 - [facility] 45.0 [facility] LABORATORY RDWCV 18.6 (H) 11.4 - [facility] 13.8 % [facility] MPV 9.7 7.6 - 12.9 [facility] LABORATORY nRBC % Auto 7.9 % [facility] nRBC Abs Auto 0.100 (H) 0.000 - [facility] 0.000 [place] x10(3)/[facility] LABORATORY Specimen Anatomical Collection Method Collection Time Receive d Time (Source) Location / / Volume Laterality Blood 09/05/2021 8:27 AM 8:31 EST AM EST Resulting Agency Comment Spec In Lab Parviz Modi MD HEMATOLOGY ORDERABLES Performing Organization Address City/State/[place] [address] (ABNORMAL) Comprehensive metabolic panel (non-fasting) (09/05/2021 8:27 AM EST) P athologist Signature Glucose Lvl 133 65 - 199 [facility] mg/dL [facility] Comment: Diabetes: >=200 mg/dL plus symp toms BUN 22 (H) 10 - 20 mg/dL [facility] Creatinine 1.08 0.80 - 1.50 mg/dL [facility] Sodium 138 135 - 145 mmol/L [facility] Potassium 4.5 3.5 - 5.0 mmol/L [facility] Comment: Please note: ??Patients with WBC >100,00 0 may have falsely elevated Potassium levels. ??For accurate Potassium quantif ication in these patients send serum separator tube (gold top) for subsequent determinations. ??Contact the Clinical Chemistry Laboratory if there are any qu estions. Chloride 108 (H) 98 - 107 mmol/L [facility] CO2 19 (L) 22 - 31 mmol/L [facility] Anion Gap 11 5 - 15 mmol/L [facility] Calcium 9.3 8.5 - 10.5 mg/dL [facility] K [facility] Total Protein 7.4 6.1 - 8.0 g/dL [facility] Albumin 3.8 3.2 - 5.2 g/dL [facility] AST 36 0 - 39 unit/L [facility] ALT 33 0 - 55 unit/L [facility] Alk Phos 129 40 - 130 unit/L [facility] Total Bilirubin <0.2 (L) 0.2 - 1.3 mg/dL [facility] Estimated GFR 74 >=60 mL/min/1.73 m?? [facility] Comment: This patient? s [...] Organization Address City/State/[place] [address] SCAN DOC: LAB (09/05/2021 12:00 AM EST) Narrative This result has an attachment that is no t available. Unknown MEDIA MGR SCAN EXT ORDR/RSLT documented in this encounter Visit Diagnoses Diagnosis [...] documented as of this encounter Care Teams Goat Driver Relationship Specialty Start Date End Date Beatriz Maurice PA PCP - General Family Medicine 05/06/21 [address] [place] [address] documented as of this encounter
--- OUTSIDE RECORDS SUMMARY | 2022-02-14 11:16 | XMS_ITS | Encounter Summary ---
:1960 Author Organization [facility] Address [address] [place] [address] Care Team Providers Name Role Phone Beatriz Maurice Primary Care Provider Encounter Details Date Type Department Care Team Description 09/04/2021 Orders Only Hematology and Oncology at [facility], Miroslava Spivey APRN [facility] Catie narvaez HEMATOLOGY/[place] [address] DEPT. [phone] [place], [place] [address] (Wo rk) Social History Tobacco [...] [facility] DR HEMATOLOGY/[place] [address] Miroslava Pelayo APRN [facility] HEMATOLOGY/[place] [address] 02/24/2022 Office Visit Wound Care 02/24/2022 Appointment Hematology and Oncology 02/26/2022 Office Visit Neurology Leni Bustamante MD [facility] NEUROLOGY DEPT. [place], [place] [address] (Wo rk) documented as of this encounter Visit Diagnoses Not on filedocumented in this encounter Additional Health Concerns Infection Onset Date Last Indicated Resolved Time History of C. difficileComment: C. diffiicile 08/20/2021 testing positive 05/25/21. documented as of this encounter Care Teams Pr Manager Relationship Specialty Start Date End Date Beatriz Maurice PA PCP - General Family Medicine 05/06/21 [address] [place] [address] documented as of this encounter
--- OUTSIDE RECORDS SUMMARY | 2022-02-14 11:17 | XMS_ITS | Encounter Summary ---
:1960 Author Organization [place] [address] Care Team Providers Name Role Phone Beatriz Maurice Primary Care Provider Reason for Visit Treatment/Therapy Plan Authorization (Routine) - Closed Specialty Diagnoses / Procedures Referred By Contact Refer red To Contact Diagnoses Acute leukemia not having achieved remission Walter Murcia MD Ip Hem Onc [facility] HEMATOLOGY/[place] [address] [place] [address] Referral ID Status Reason Start Date Expiration Date Visits Requ ested Visits Authorized [id number] Closed 07/15/2021 07/15/2022 99 99 Encounter Details Date Type Department Care Team Description 08/12/2021 Hospital Encounter Hematology and Acute l eukemia not Oncology at [facility] having achieved [facility] [place] [address] Social History Tobacco Use Types Packs/Day [...] Refills Start Date End Date Ostomy Supplies [facility] Dispense 2 boxes ( 20 each 022 10/box) of [employer] Barrier rings #[id number] per month. Ostomy Supplies Dispense 1 bottle of 28.3 g 5 08/20/2021 Powder [employer] stoma powder #[id number] every other month. Ostomy Supplies Misc Dispense 2 boxes 20 each 11 2 (10/box) of Sensura Flako Soft Convex One-piece Pouch #[id number] per month. Ostomy Supplies [facility] Dispense 2 boxes 40 each 2 (20/box) of Brava Elastic Barrier strips #[id number] per month. Ostomy Supplies [facility] Dispense 1 box (50/box) 50 each of a generic no-sting skin barrier wipe per month. Colostomy Belt Dispense 1 Sensura [place] 1 each 2 12/13/2021 (Ostomy Belt Medium) Belt #[id number] per month. [facility] gilteritinib Take 3 tablets (120 mg) 21 tablet 0 08/08/2021 08/27/2021 (Xospata) 40 mg by mouth daily for 7 tabletIndications: days. Call clinic acute myeloid before starting leukemia with FLT3 medication. 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 Patient Age: 61 y.o. Birthdate: 1960 Admit date: 08/12/2021 Attending Physician: No att. providers found Herber Iverson Jr., 61 y.o. 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 CYCLE: 3 S: Pt. offers no complaints at this time. Reviewed plan of care for infusion visit, patient verbalized understanding of plan as outlined. O: Chemotherapy orders independently verified for correct drug name, route and dosage per patient's height, weight and BSA by Michelle Polk RN, RN and onsite pharmacist. Chemotherapy administered per protocol. REACTIONS (DESCRIPTION, TIME, INTERVENTION AND EFFECTIVENESS) none A: Pt. Tolerated treatment with out issue. Remained supine for 1 hour post IT Chemotherapy. Herber Iverson Jr. confirms that all questions and issues have been addressed. P: Return to clinic as scheduled. documented in this encounter Plan of Treatment Upcoming Encounters Date Type Specialty Care Team Description 02/18/2022 Infusion Hematology and Oncology 02/21/2022 Infusion Hematology and Oncology 02/24/2022 Appointment Hematology and Oncology 02/24/2022 Office Visit Hematology and Oncology Parviz Modi MD [facility] DR HEMATOLOGY/[place] [address] Miroslava Pelayo APRN [facility] DR HEMATOLOGY/[place] [address] 02/24/2022 Office Visit Wound Care 02/24/2022 Appointment Hematology and Oncology 02/26/2022 Office Visit Neurology Leni Bustamante MD [facility] NEUROLOGY DEPT. [place], [place] [address] (Wo rk) documented as of this encounter Visit Diagnoses Diagnosis Acute leukemia not having achieved remis sharon Acute leukemia of unspecified cell type, without mention of having achieved remission documented in this encounter Administered Medications Inactive Administered Medications - up to 3 most recent administrations Medication Order MAR Action Action Date Dose Rate Site hydrocortisone sodium succinate Given 08/12/2021 1:47 PM EST 60 mL/hr (PF) (Solu-CORTEF) 50 mg, cytarabine (PF) (Elke-C) 100 mg, sodium chloride 0.9% 2.5 mL INTRATHECAL injection Intrathecal, ONCE, 1 dose, On Thu08/12/21 at 1115, Administer over 6 Minutes, 1) Recommend the following labs be ordered prior to intrathecals: Platelet, PT/INR, and APTT. For intrathecal administration only. 2) A&P TECHNICIAN prophylaxis (intrathecal therapy) given on days 2 and 7 with each cycle for 16 treatments. If there is a A&P TECHNICIAN involvement, intrathecal therapy augmented to twice weekly until CSF cell count normalized and cytology is negative for malignant cells. If there A&P TECHNICIAN involvement give intrathecal therapy alternating with methotrexate and cytarabine weekly for 4 doses (including planned intrathecal on days 2 and 7 if course is given). 3) All intrathecal products mixed with preservative-free normal saline and prepared in a total volume of 6 mL. LORazepam (Ativan) tablet 0.5 mg Given 08/12/2021 11:29 AM EST 0.5 mg 0.5 mg, Oral, ONCE, 1 dose, On Thu08/12/21 at 1215, Administer prior to intrathecal chemotherapy., Routine ondansetron (Zofran) tablet 8 mg Given 08/12/2021 11:29 AM EST 8 mg 8 mg, Oral, ONCE, 1 dose, On Thu08/12/21 at 1215, Administer prior to intrathecal chemotherapy. Hold ondansetron premedication if patient has received ondansetron within the past 12 hours or palonosetron within the last 72 hours; do not exceed 32 mg/24 hours of ondansetron., Routine documented in this encounter Additional Health Concerns Infection Onset Date Last Indicated Resolved Time C. difficile 05/25/2021 05/25/2021 08/20/2021 5:29 AM EST documented as of this encounter Care Teams City Secretary Relationship Specialty Start Date End Date Beatriz Maurice PA PCP - General Family Medicine 05/06/21 [address] [place] [address] documented as of this encounter
--- OUTSIDE RECORDS SUMMARY | 2022-02-14 11:17 | XMS_ITS | Encounter Summary ---
:1960 Author Organization [facility] Address [address] [place] [address] Care Team Providers Name Role Phone Beatriz Maurice Primary Care Provider Encounter Details Date Type Department Care Team Description 08/08/2021 Telephone Internal Medicine at [facility] Maldonado Rivera MD [facility] [place] [address] GENERAL INTERNAL MEDICINE [phone] [place], [place] [address] (Wo rk) Social History Tobacco [...] encounter Miscellaneous Notes Telephone Encounter - Claudia Blackman CCMA - 08/08/2021 4:19 PM EST This patient is currently admitted and is not a [facility] patient. Dr Cadet is one of our residents. Think he has taken care of it and reodered it a different way because the pharmacy order is DC'd documented in this encounter Plan of Treatment Upcoming Encounters Date Type Specialty Care Team Description 02/18/2022 Infusion Hematology and Oncology 02/21/2022 Infusion Hematology and Oncology 02/24/2022 Appointment Hematology and Oncology 02/24/2022 Office Visit Hematology and Oncology Parviz Modi MD [facility] DR HEMATOLOGY/[place] [address] Miroslava Pelayo APRN [facility] DR HEMATOLOGY/[place] [address] 02/24/2022 Office Visit Wound Care 02/24/2022 Appointment Hematology and Oncology 02/26/2022 Office Visit Neurology Leni Bustamante MD [facility] DR NEUROLOGY DEPT. [place], [place] [address] (Wo rk) documented as of this encounter Visit Diagnoses Not on filedocumented in this encounter Additional Health Concerns Infection Onset Date Last Indicated Resolved Time C. difficile 05/25/2021 05/25/2021 08/20/2021 5:29 AM EST documented as of this encounter Care Teams Director Of Customer Service Relationship Specialty Start Date End Date Beatriz Maurice PA PCP - General Family Medicine 05/06/21 [address] [place] [address] documented as of this encounter
--- OUTSIDE RECORDS SUMMARY | 2022-02-14 11:17 | XMS_ITS | Encounter Summary ---
:1960 Author Organization [facility] Address [facility] [place] [address] Care Team Providers Name Role Phone Beatriz Maurice Primary Care Provider Encounter Details Date Type Department Care Team Description 08/19/2021 [facility] Catie narvaez HEMATOLOGY-[place] [address] DEPT. [phone] [place], [place] [address] (Wo rk) Social History Tobacco [...] MD [facility] DR HEMATOLOGY/[place] [address] Miroslava Pelayo APRN [facility] HEMATOLOGY/[place] [address] 02/24/2022 Office Visit Wound Care 02/24/2022 Appointment Hematology and Oncology 02/26/2022 Office Visit Neurology Leni Bustamante MD [facility] NEUROLOGY DEPT. [place], [place] [address] (Wo rk) documented as of this encounter Visit Diagnoses Not on filedocumented in this encounter Additional Health Concerns Infection Onset Date Last Indicated Resolved Time C. difficile 05/25/2021 05/25/2021 08/20/2021 5:29 AM EST documented as of this encounter Care Teams Vocational Rehabilitation Counselor Relationship Specialty Start Date End Date Beatriz Maurice PA PCP - General Family Medicine 05/06/21 [address] [place] [address] documented as of this encounter
--- OUTSIDE RECORDS SUMMARY | 2022-02-14 11:17 | XMS_ITS | Encounter Summary ---
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 Ostomy Supplies [facility] Dispense 2 boxes 20 each 11 2 (10/box) of Sensura Flako Soft Convex One-piece Pouch #[id number] per month. Ostomy Supplies [facility] Dispense 2 boxes 40 each 11 2 (20/box) of Brava Elastic Barrier strips #[id number] per month. Ostomy Supplies [facility] Dispense 1 box (50/box) 50 each 11 of a generic no-sting skin barrier wipe per month. Colostomy Belt Dispense 1 Sensura Flako 1 each 2 12/13/2021 (Ostomy Belt Medium) Belt #[id number] per month. [facility] enoxaparin (Lovenox) Inject 1 mL 30 mL [...] [facility] H[facility]/[place] [address] Miroslava Pelayo, [facility] DR HEMATOLOGY/[place] [address] 02/24/2022 Office Visit Wound Care 02/24/2022 Appointment Hematology and Oncology 02/26/2022 Office Visit Neurology Leni Bustamante MD [facility] DR NEUROLOGY DEPT. [place], [place] [address] (Wo rk) documented as of this encounter Procedures Procedure Name Priority Date/Time Associated Diagnosis Comme nts TYPE AND SCREEN STAT 08/19/2021 8:54 AM Result s for this VALIDITY EST procedure are i n the results section. ABORH RECHECK STATUS STAT 08/19/2021 8:54 AM R esults for this EST procedure are i n the results section. SCAN, PERIPHERAL STAT 08/19/2021 8:54 AM Resul ts for this BLOOD EST procedure are i n the results section. HEMOGRAM STAT 08/19/2021 8:54 AM Acute myeloid Results for this EST leukemia not having procedur e are in achieved remissi on the results Anemia, unspecified section. 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 ce S/P partial resection of colon DIFFERENTIAL, STAT 08/19/2021 8:54 AM Acute myeloid Results for this AUTOMATED EST leukemia not having procedur e are in achieved remissi on the results Anemia, unspecified section. 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 ce S/P partial resection of colon APTT STAT 08/19/2021 8:54 AM Results f or this EST procedure are i n the results section. HC PROTHROMBIN TIME STAT 08/19/2021 8:54 AM Acute myeloid R esults for this EST leukemia not having procedur e are in achieved remission the resul ts section. HC PLATELET COUNT STAT 08/19/2021 8:54 AM Acute myeloid Res ults for this EST leukemia not having procedur e are in achieved remission the resul ts section. 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 ce S/P partial resection of colon LAB SCAN 08/19/2021 12:00 AM EST documented in this encounter Results Type and Screen Validity (08/19/2021 8:54 AM EST) [facility] Method Time Signature T&S only valid [facility] LABORATORY Comment: This Type and Screen result is only valid at the [facility] Specimen Anatomical Collection Method Collection Time Receive d Time (Source) Location / / Volume Laterality Blood 08/19/2021 8:54 AM 2 9:08 EST AM EST Resulting Agency Comment Spec In Lab Parviz Modi MD BLOOD BANK ORDERABLES Performing Organization Address City/State/[place] [address] Scan, Peripheral Blood (08/19/2021 8:54 AM EST) [facility] Method Time Signature Plat Estimate Decreased [facility] LABORATORY RBC Morphology Abnormal [facility] LABORATORY Hypochromia Slight [facility] LABORATORY Ovalocytes 1-5 /HPF [facility] LABORATORY Specimen Anatomical Collection Method Collection Time Receive d Time (Source) Location / / Volume Laterality Blood 08/19/2021 8:54 AM 2 9:12 EST AM EST Resulting Agency Comment Spec In Lab Parviz Modi MD HEMATOLOGY ORDERABLES Performing Organization Address City/State/ZIP Code Phon e Number [address] ABORH Recheck Status (08/19/2021 8:54 AM EST) [facility] Method Time Signature ABORH Type Completed [facility] LABORATORY Specimen Anatomical Collection Method Collection Time Receive d Time (Source) Location / / Volume Laterality Blood 08/19/2021 8:54 AM 2 9:08 EST AM EST Resulting Agency Comment Spec In Lab Parviz Modi MD BLOOD BANK ORDERABLES Performing Organization Address City/[facility]/ZIP Code Phon e Number [address] APTT (08/19/2021 8:54 AM EST) P athologist Signature PTT 30 25 - 37 sec [facility] LABORATORY Comment: The PTT is NOT appropriate for heparin m onitoring. Use the Anti-Xa level for heparin monitoring (HEP UFH) or LMWH mon itoring (HEP LMW). A PTT less than 37 seconds generally indicates adequate hem ostasis. Specimen Anatomical Collection Method Collection Time Receive d Time (Source) Location / / Volume Laterality Blood Venous Draw / 08/19/2021 8:54 AM 08/19/19 22 9:12 Unknown EST AM EST Resulting Agency Comment Spec In Lab Yolette Solano APRN HEMATOLOGY ORDERABLES Performing Organization Address City/[facility]/[place] [address] Antibody screen (08/19/2021 8:54 AM EST) [facility] Method Time Signature Ab Screen Negative [facility] LABORATORY Expires at 08/22/2021 [id number] on: [facility] LABORATORY Specimen Anatomical Collection Method Collection Time Receive d Time (Source) Location / / Volume Laterality Blood 08/19/2021 8:54 AM 2 9:08 EST AM EST Resulting Agency Comment Spec In Lab Parviz Modi MD BLOOD BANK ORDERABLES Performing Organization Address City/State/[place] [address] [facility] LAB[address] Drive ABO/Rh Typing (08/19/2021 8:54 AM EST) P athologist Signature ABORh Type O Pos [facility] LABORATORY Specimen Anatomical Collection Method Collection Time Receive d Time (Source) Location / / Volume Laterality Blood 08/19/2021 8:54 AM 9:08 EST AM EST Resulting Agency Comment Spec In Lab Parviz Modi MD BLOOD BANK ORDERABLES Performing Organization Address City/[facility]/[place] [address] [facility] LAB[address] (ABNORMAL) Differential, Automated (08/19/2021 8:54 AM EST) Patholo gist Method Time Signature Neutrophils % 25.5 % [facility] LABORATORY Neutr Abs (ANC) 0.34 1.70 - [facility] (Critical 6.10 MEMORIAL ) x10(3)/ HOSPITAL L LABORATORY Comment: This result has been called to KYLE WEI by Татьяна Thornton on 08 19 2021 at 1008, and has been read back. Lymphocytes % 53.4 % [facility] LABORATORY Lymphocytes Abs 0.7 (L) 0.9 - 3.2 x10(3)/[facility] LABORATORY Monocytes % 21.1 % [facility] LABORATORY Monocyte Abs 0.3 0.3 - 0.9 x10(3)/[facility] LABORATORY Eosinophils % 0.0 % [facility] LABORATORY Eosinophils Abs 0.0 0.0 - 0.4 x10(3)/[facility] LABORATORY Basophils % 0.0 % [facility] LABORATORY Basophils Abs 0.0 0.0 - 0.1 x10(3)/[facility] LABORATORY Immature Gran % 0.00 % [facility] LABORATORY Comment: Immature granulocytes(IG's)percentage an d absolute count will include metamyelocytes, myelocytes, and promyelo cytes. Blood smears from CBCs yielding IG's will be scanned manually for concmargie danshahana. If this scan disagrees with the automated IG or if promyelocytes are not ed, a manual differential will be performed. Zara Gran Abs 0.00 0.00 - 0.04 x10(3)/[facility] LABORATORY Specimen Anatomical Collection Method Collection Time Receive d Time (Source) Location / / Volume Laterality Blood 08/19/2021 8:54 AM 9:12 EST AM EST Resulting Agency Comment Spec In Lab Parviz Modi MD HEMATOLOGY ORDERABLES Performing Organization Address City/State/[place] [address] (ABNORMAL) Hemogram (08/19/2021 8:54 AM EST) P athologist Signature WBC 1.3 4.0 - 9.5 [facility] (Critical) x10(3)/[facility] LABORATORY RBC 1.88 (L) 4.58 - [facility] 5.54 [facility] x10(6)/[facility] LABORATORY Hemoglobin 6.0 (L) 13.7 - [facility] 16.5 g/dL [facility] LABORATORY Hematocrit 16.9 (L) 40.5 - [facility] 48.5 % [facility] LABORATORY MCV 89.9 82.9 - [facility] 93.1 [facility] LABORATORY MCH 31.9 27.5 - [facility] 32.1 pg [facility] LABORATORY MCHC 35.5 32.0 - [facility] 35.7 g/dL [facility] LABORATORY Platelets 15 145 - 357 [facility] (Critical) x10(3)/[facility] LABORATORY Comment: This result has been called to KYLE WEI by Татьяна Thornton on 08 19 2021 at 1008, and has been read back. RDWSD 48.2 (H) 36.0 - 45.0 [facility] LABORATORY RDWCV 15.0 (H) 11.4 - 13.8 % [facility] LABORATORY MPV 11.1 7.6 - 12.9 [facility] LABORATORY nRBC % Auto 0.0 % [facility] LABORATORY nRBC Abs Auto 0.000 0.000 - 0.000 x10(3)/mcL [facility] LABORATORY Specimen Anatomical Collection Method Collection Time Receive d Time (Source) Location / / Volume Laterality Blood 08/19/2021 8:54 AM 9:12 EST AM EST Resulting Agency Comment Spec In Lab Parviz Modi MD HEMATOLOGY ORDERABLES Performing Organization Address City/State/[place] [address] (ABNORMAL) Comprehensive metabolic panel (non-fasting) (08/19/2021 8:54 AM EST) P athologist Signature Glucose Lvl 102 65 - 199 [facility] mg/dL [facility] LABORATORY Comment: Diabetes: >=200 mg/dL plus symp toms BUN 32 (H) 10 - 20 mg/dL [facility] LABORATORY Creatinine 1.00 0.80 - 1.50 mg/dL [facility] LABORATORY Sodium 137 135 - 145 mmol/L [facility] LABORATORY Potassium 4.3 3.5 - 5.0 mmol/L [facility] LABORATORY Comment: Please note: ??Patients with WBC >100,00 0 may have falsely elevated Potassium levels. ??For accurate Potassium quantif ication in these patients send serum separator tube (gold top) for subsequent determinations. ??Contact the Clinical Chemistry Laboratory if there are any qu estions. Chloride 110 (H) 98 - 107 mmol/L [facility] LABORATORY CO2 16 (L) 22 - 31 mmol/L [facility] LABORATORY Anion Gap 11 5 - 15 mmol/L [facility] LABORATORY Calcium 9.3 8.5 - 10.5 mg/dL [facility] LABORATORY Total Protein 7.3 6.1 - 8.0 g/dL [facility] LABORATORY Albumin 3.7 3.2 - 5.2 g/dL [facility] LABORATORY AST 30 0 - 39 unit/L [facility] LABORATORY ALT 35 0 - 55 unit/L [facility] LABORATORY Alk Phos 153 (H) 40 - 130 unit/L [facility] LABORATORY Total Bilirubin 0.2 0.2 - 1.3 mg/dL [facility] LABORATORY Estimated GFR 81 >=60 mL/min/1.73 m?? [facility] LABORATORY Comment: This patient? s estimated [...] (Source) Location / / Volume Laterality Blood 08/19/2021 8:54 AM 9:12 EST AM EST Resulting Agency Comment Spec In Lab Parviz Modi MD CHEMISTRY ORDERABLES Performing Organization Address City/State/[place] [address] (ABNORMAL) Platelet count (08/19/2021 8:54 AM EST) P athologist Signature Platelets 15 145 - 357 [facility] (Critical) x10(3)/[facility] LABORATORY Comment: This result has been called to KYLE WEI by Татьяна Thornton on 08 19 2021 at 1008, and has been read back. Plat Immature % 4.6 0.0 - 7.4 % [facility] LABORATORY Comment: Limitation of the Immature Platelet Frac tion (IPF)-May be less reliable when the platelet count is less than 43y300/u L due to statistical imprecision. The IPF [...] in a decreased state of production. References: [employer] The Clinical Value of the Immature Platelet Fraction (IPF) in Cell Recovery Document Number 10-1143 01/2011 [employer] The Role of the Imm ature Platelet Fraction (IPF) in the Differential Diagnosis of Thrombocytopen ia, Document MKT-10-1209 V012/26/13 Specimen Anatomical Collection Method Collection Time Receive d Time (Source) Location / / Volume Laterality Blood 08/19/2021 8:54 AM 2 9:12 EST AM EST Resulting Agency Comment Spec In Lab Yolette Solano APRN HEMATOLOGY ORDERABLES Performing Organization Address City/State/[place] [address] Prothrombin Time (08/19/2021 8:54 AM EST) P athologist Signature PT 10.8 9.4 - 12.5 [facility] LABORATORY INR 1.0 [facility] LABORATORY Comment: An INR <2.0 indicates [...] (Source) Location / / Volume Laterality Blood 08/19/2021 8:54 AM 2 9:12 EST AM EST Resulting Agency Comment Spec In Lab Yolette Solano APRN HEMATOLOGY ORDERABLES Performing Organization Address City/State/ZIP [place] [address] SCAN DOC: LAB (08/19/2021 12:00 AM EST) Narrative This result has [...] as of this encounter Care Teams Supervisor Sunglasses Relationship Specialty Start Date End Date Beatriz Maurice PA PCP - General Family Medicine 05/06/21 [address] [place] [address] documented as of this encounter
--- OUTSIDE RECORDS SUMMARY | 2022-02-14 11:17 | XMS_ITS | Encounter Summary ---
:1960 Author Organization [facility] [place] [address] Care Team Providers Name Role Phone Beatriz Maurice Primary Care Provider Encounter Details Date Type Department Care Team Description 08/19/2021 Hospital Encounter Hematology and Acute l eukemia not Oncology at [facility] having achieved [facility] [place] [address] Social History Tobacco Use Types Packs/Day [...] Sign Reading Time Taken Comments Blood Pressure 108/80 08/19/2021 1:00 PM EST Pulse 72 08/19/2021 1:00 PM EST Temperature 35.7 ??C (96.3 ??F) 08/19/2021 1:00 PM EST Respiratory Rate 16 08/19/2021 1:00 PM EST Oxygen Saturation 98% 08/19/2021 12:58 PM EST Inhaled Oxygen Concentration - - Weight 100.2 kg (221 lb) 08/19/2021 9:10 AM EST Height 178.2 cm (5' 10.16) 08/19/2021 9:10 AM EST Body Mass Index 31.57 08/19/2021 9:10 AM EST documented in this encounter Discharge Instructions Patient InstructionsEmilia Harvey RN - 08/19/2021 11:42 AM EST [place], [place] INFORMATION FOR TRANSFUSION RECIPIENTS: You have received a transfusion of a blood product obtained from a volunteer donor. Before you leave the hospital, we will carefully check for any adverse reactions. However, once you leave, please pay attention to the signs of a transfusion reaction listed on the other side of this card. Should you notice any of these symptoms or should you be worried about this transfusion for any reason, you should call or come back to the hospital. Most reactions to blood product transfusions are mild and can be easily treated. However, a mild reaction could be a warning of a more serious reaction to come. Therefore, we urge you to contact the hospital should you suspect a transfusion reaction or are worried. SIGNS AND SYMPTOMS OF A TRANSFUSION REACTION: ?? Fever ?? Chills or shaking ?? Hives, rash or itching ?? Shortness of breath or difficulty breathing ?? Dizziness or lightheadedness ?? Brown, pink, or bloody urine ?? New cough ?? Back pain (or any new and unexplainable pain) ?? Yellowing of skin or whites of the eyes (jaundice) ?? Pain or swelling at or near the transfusion site. If you discover any of these symptoms or need help, call [facility] at and ask to speak to your provider or the provider material control supervisor. You may also call the provider material control supervisor for the Blood Bank at . If you need emergency care, you should come to ourEmergency Department or to any other hospital. Details of your transfusion will be available by calling [facility]. documented in this encounter Medications at Time [...] boxes 20 each 2 (10/box) of Sensura [place] Soft Convex One-piece Pouch #[id number] per month. Ostomy Supplies Misc Dispense 2 boxes 40 each 2 (20/box) of Brava Elastic Barrier strips #[id number] per month. Ostomy Supplies Misc Dispense 1 box (50/box) 50 each of a generic no-sting skin barrier wipe per month. Colostomy Belt Dispense 1 Sensura [place] 1 each 2 12/13/2021 (Ostomy Belt Medium) [...] encounter Progress Notes Emilia Harvey RN - 08/19/2021 9:48 AM EST Patient Name: Herber Iverson Jr. Patient Age: 61 y.o. Birthdate: 1960 Admit date: 08/19/2021 Attending Physician: No att. providers found Herber Iverson Jr., 61 y.o. 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 S: Pt. offers no complaints at this [...] MD [facility] [address] HEMATOLOGY/[place] [address] Miroslava Pelayo APRN [facility] [address] HEMATOLOGY/[place] [address] 02/24/2022 Office Visit Wound Care 02/24/2022 Appointment Hematology and Oncology 02/26/2022 Office Visit Neurology Leni Bustamante MD [facility] DR NEUROLOGY DEPT. [place], [place] [address] (Wo rk) documented as of this encounter Procedures Procedure Name Priority Date/Time Associated Diagnosis Comme nts TRANSFUSE RED BLOOD Routine 08/19/2021 12:30 PM CELLS EST TRANSFUSE 1 UNIT Routine 08/19/2021 11:14 AM PLATELET PHERESIS EST PREPARE RBC Routine 08/19/2021 10:52 AM Results for this EST procedure are i n the results section. PREPARE PLATELETS, Routine 08/19/2021 10:45 AM Re sults for this APHERESIS EST procedure are i n the results section. PREPARE RBC Routine 08/19/2021 10:45 AM Results for this EST procedure are i n the results section. documented in this encounter Results Transfuse RBC (08/19/2021 2:02 PM EST) Miroslava Pelayo APRN NURSING TREATMENT ORDERABLES - BLOOD ADMIN Transfuse RBC (08/19/2021 2:02 PM EST) Miroslava Pelayo APRN NURSING TREATMENT ORDERABLES - BLOOD ADMIN Transfuse 1 unit platelets, apheresis (08/19/2021 12:12 PM EST) Miroslava Pelayo APRN NURSING TREATMENT ORDERABLES - BLOOD ADMIN Transfuse 1 unit platelets, apheresis (08/19/2021 12:12 PM EST) Miroslava Pelayo APRN NURSING TREATMENT ORDERABLES - BLOOD ADMIN Prepare RBC (08/19/2021 10:52 AM EST) P athologist Signature Dispensed? No [facility] LABORATORY Specimen Anatomical Collection Method Collection Time Receive d Time (Source) Location / / Volume Laterality Blood No Charge / 08/19/2021 10:52 08/19/2021 Unknown AM EST 10:52 AM EST Resulting Agency Comment Spec In Lab Miroslava Pelayo APRN BLOOD BANK ORDERABLES Performing Organization Address City/State/ZIP Code Phon e Number [address] Prepare RBC (08/19/2021 10:45 AM EST) P athologist Signature Dispensed? Yes [facility] LABOR[facility] Specimen Anatomical Collection Method Collection Time Receive d Time (Source) Location / / Volume Laterality Blood 08/19/2021 10:45 08/19/2021 AM EST 10:43 AM EST Resulting Agency Comment Spec In Lab Miroslava Pelayo APRN BLOOD BANK ORDERABLES Performing Organization Address City/[facility]/ZIP Code Phon e Number [address] Prepare Platelets, Apheresis (08/19/2021 10:45 AM EST) P athologist Signature Dispensed? Yes [facility] LABOR[facility] Specimen Anatomical Collection Method Collection Time Receive d Time (Source) Location / / Volume Laterality Blood 08/19/2021 10:45 08/19/2021 AM EST 10:43 AM EST Resulting Agency Comment Spec In Lab Miroslava Spivey Pierce BETA TESTER BLOOD BANK ORDERABLES Performing Organization Address City/State/ZIP Code Phon e Number [place] [id number] LAB[address] documented in this encounter Visit Diagnoses Diagnosis Acute leukemia not having achieved remis sharon Acute leukemia of unspecified cell type, without mention of having achieved remission documented in this encounter Additional Health Concerns Infection Onset Date Last Indicated Resolved Time C. difficile 05/25/2021 05/25/2021 08/20/2021 5:29 AM EST documented as of this encounter Care Teams Craft Manager Relationship Specialty Start Date End Date Beatriz Maurice PA PCP - General Family Medicine 05/06/21 [address] [place] [address] documented as of this encounter
--- OUTSIDE RECORDS SUMMARY | 2022-02-14 11:17 | XMS_ITS | Encounter Summary ---
:1960 Author Organization [facility] [place] [address] Care Team Providers Name Role Phone Beatriz Maurice Primary Care Provider Reason for Visit Reason Comments Other [facility] Encounter Details Date Type Department Care Team Description 08/07/2021 Specialty Pharmacy [place] [facility] Violeta Spivey [facility] [place]) [place] [phone] Social History Tobacco Use Types Packs/Day Years [...] documented as of this encounter Progress Notes Violeta Joya [facility] - 08/07/2021 11:09 AM EST [facility] - [employer] Funding The [facility] has looked into assistance for this patient and were able to enroll the patient in [employer] funding with the following organization: Organization: [facility] Disease state: AML Medication: Venetoclax and Xospata (pharmacy card can be used for either or both) [id number] [employer] start date: 07/08/2021 [employer] expiration date: 07/08/2022 [employer] award amount: 10,000 (copay assistance) Pharmacy Processing information BIN: [id number] PCN: [id number] Pharmacy ID: [id number] Group: [id number] Violeta Joya RPH 08/07/21 11:10 AM documented in this encounter Plan of Treatment Upcoming Encounters Date Type Specialty Care Team Description 02/18/2022 Infusion Hematology and Oncology 02/21/2022 Infusion Hematology and Oncology 02/24/2022 Appointment Hematology and Oncology 02/24/2022 Office Visit Hematology and Oncology Parviz Modi MD [facility] DR HEMATOLOGY/[place] [address] Miroslava Pelayo APRN [facility] DR HEMATOLOGY/[place] [address] 02/24/2022 Office Visit Wound Care 02/24/2022 Appointment Hematology and Oncology 02/26/2022 Office Visit Neurology Leni Bustamante MD [facility] DR NEUROLOGY DEPT. [place], [place] [address] (Wo rk) documented as of this encounter Visit Diagnoses Not on filedocumented in this encounter Additional Health Concerns Infection Onset Date Last Indicated Resolved Time C. difficile 05/25/2021 05/25/2021 08/20/2021 5:29 AM EST documented as of this encounter Care Teams Wiping Cloth Cutter Relationship Specialty Start Date End Date Beatriz Maurice PA PCP - General Family Medicine 05/06/21 [address] [place] [address] documented as of this encounter
--- OUTSIDE RECORDS SUMMARY | 2022-02-14 11:17 | XMS_ITS | Encounter Summary ---
:1960 Author Organization [facility] [place] [address] Care Team Providers Name Role Phone Beatriz Maurice Primary Care Provider Encounter Details Date Type Department Care Team Description 08/07/2021 Orders Only Hematology and Oncology at Maldonado Sims MD [facility] [place] [address] [place] [address] [place], [place] [address] (Wo rk) Social History Tobacco [...] [facility] DR HEMATOLOGY/[place] [address] Miroslava Pelayo APRN [facility] HEMATOLOGY/[place] [address] 02/24/2022 Office Visit Wound Care 02/24/2022 Appointment Hematology and Oncology 02/26/2022 Office Visit Neurology Leni Bustamante MD [facility] DR NEUROLOGY DEPT. [place], [place] [address] (Wo rk) documented as of this encounter Visit Diagnoses Not on filedocumented in this encounter Additional Health Concerns Infection Onset Date Last Indicated Resolved Time C. difficile 05/25/2021 05/25/2021 08/20/2021 5:29 AM EST History of C. difficileComment: C. 08/20/2021 08/20/2021 diffiicile testing positive 05/25/21. documented as of this encounter Care Teams Polytechnic Registrar Relationship Specialty Start Date End Date Beatriz Maurice PA PCP - General Family Medicine 05/06/21 [address] [place] [address] documented as of this encounter
--- OUTSIDE RECORDS SUMMARY | 2022-02-14 11:17 | XMS_ITS | Encounter Summary ---
:1960 Author Organization [facility] [place] [address] Care Team Providers Name Role Phone Beatriz Maurice Primary Care Provider Encounter Details Date Type Department Care Team Description 08/21/2021 Notes Only Radiology at [facility] Edyta Templeton, GLASS CUTTING MACHINE OPERATOR [facility] [place] [address] NEUROSURGERY [phone] [place], [place] [address] (Wo rk) Social History Tobacco [...] as of this encounter Progress Notes Edyta Templeton APRN - 08/21/2021 11:31 AM EST NEURORADIOLOGY PRE-PROCEDURE NOTE Name: Herber Iverson JrNabil Date of : 1960 PCP: LEISA Munguia Referring Provider: Miroslava Pelayo APRN Planned Procedure: Fluoro-guided LP for CSF collection and IT chemo infusion Procedure Indication: AML Procedure request received through Interventional Radiology eDH order queue. ?? Presenting Diagnosis/ Complaint: Herber Iverson Jr. is a 61 y.o. male with AML receiving IT chemotherapy. Patient Active Problem List Diagnosis Code ??? Acute leukemia C95.00 ??? Clostridium difficile colitis A04.72 ??? 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 Other [Unclassified Drug] Other (See Comments) Artificial Sweetners-lightheadedness, dizziness ??? Metoprolol heart skips a beat Medications: Current Outpatient Medications: ??? Ostomy Supplies Misc, Dispense 2 boxes ( 10/box) of Adapt Barrier rings #7805 per month., Disp: 20 each, Rfl: 11 ??? Colostomy Belt (Ostomy Belt Medium) Misc, Dispense 1 Sensura [place] Belt #[id number] per month., Disp: 1 each, Rfl: 11 ??? Ostomy Supplies Powder, Dispense 1 bottle of Adapt stoma powder #7906 every other month., Disp: 28.3 g, Rfl: 5 ??? Ostomy Supplies Misc, Dispense 2 boxes (10/box) of Sensura Flako Soft Convex One-piece Pouch #[id number] per month., Disp: 20 each, Rfl: 11 ??? Ostomy Supplies Misc, Dispense 2 boxes (20/box) of Brava Elastic Barrier strips #[id number] per month., Disp: 40 each, Rfl: 11 ??? Ostomy Supplies Misc, Dispense 1 box (50/box) of a generic no-sting skin barrier wipe per month., Disp: 50 each, Rfl: 11 ??? enoxaparin (Lovenox) 100 mg/mL Syringe, Inject 1 mL subcutaneously daily for 30 days., Disp: 30 mL, Rfl: 2 ??? gilteritinib (Xospata) 40 mg tablet, Take 3 tablets (120 mg) by mouth daily for 7 days. Call clinic before starting medication. 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 loperamide (Imodium A-D) 2 mg Capsule, Take 1 capsule by mouth 3 times daily., Disp: 90 tablet, Rfl: 0 ??? metoprolol succinate XL (Toprol-XL) 50 mg Tablet Sustained Release 24 hr, Take 1 tablet by mouthdaily., Disp: 30 tablet, Rfl: 12 ??? acyclovir (Zovirax) 400 mg Tablet, Take 1 tablet by mouth 2 times daily., Disp: 60 tablet, Rfl: 0 ??? fluconazole (Diflucan) 200 mg Tablet, Take 2 tablets by mouth daily for 30 days., Disp: 60 tablet, Rfl: 0 ??? gabapentin (Neurontin) 300 mg Capsule, Take 1 capsule by mouth 2 times daily., Disp: 90 capsule,Rfl: 0 ??? levoFLOXacin (Levaquin) 750 mg Tablet, Take 1 tablet by mouth daily., Disp: 30 tablet, Rfl: 0 ??? tamsulosin (Flomax) 0.4 mg Capsule, Take 1 capsule by mouth daily., Disp: 90 tablet, Rfl: 0 ??? vancomycin (Vancocin) 125 mg Capsule, Take 1 capsule by mouth 2 times daily., Disp: 90 capsule, Rfl: 0 ??? sulfamethoxazole-trimethoprim DS (Bactrim DS) 800-160 mg Tablet, Take 1 tablet by mouth three times a week., Disp: 30 tablet, Rfl: 0 ??? venetoclax (Venclexta) 100 mg tablet, Take 2 tablets (200 mg) by mouth daily. Take with food azul large glass of water. Call clinic before starting medication. Indications: acute myeloid leukemia,a type of blood cancer, Disp: 60 tablet, Rfl: 12 ??? gilteritinib (Xospata) 40 mg tablet, Take 3 tablets (120 mg) by mouth daily. Call clinic before starting medication. Indications: acute myeloid leukemia with FLT3 mutation, Disp: 90 tablet, Rfl: 0 ??? flecainide (TAMBOCOR) 50 mg Tablet, Take 1 tablet by mouth 2 times daily., Disp: 60 tablet, Rfl:3 ??? famotidine (Pepcid) 20 mg Tablet, Take 2 tablets by mouth daily., Disp: 30 tablet, Rfl: 12 Labs: Lab Results Component Value Date/Time PLATELET 15 (CRIT) 08/19/2021 08:54 AM PLATELET 15 (CRIT) 08/19/2021 08:54 AM PT 10.8 08/19/2021 08:54 AM INR 1.0 08/19/2021 08:54 AM PTT 30 08/19/2021 08:54 AM Imagin08/05/21 fluoro LP in edh. Assessment / Plan: 61 y.o. male with the above history. Will proceed as below. Labs to be performed day of procedure: Platelet count and coagulation profile the day of the procedure. Medication to STOP: Hold Lovenox dose 12 hour prior. Sedation: no sedation Additional medications for procedure: Lidocaine 1% Consent: Serial consent signed in chart. Edyta Templeton APRN 08/21/2021 11:33 AM documented in this encounter Plan of Treatment Upcoming Encounters Date Type Specialty Care Team Description 02/18/2022 Infusion Hematology and Oncology 02/21/2022 Infusion Hematology and Oncology 02/24/2022 Appointment Hematology and Oncology 02/24/2022 Office Visit Hematology and Oncology Parvzi Modi MD [facility] DR HEMATOLOGY/[place] [address] Miroslava Pelayo APRN [facility] DR HEMATOLOGY/[place] [address] 02/24/2022 Office Visit Wound Care 02/24/2022 Appointment Hematology and Oncology 02/26/2022 Office Visit Neurology Leni Bustamante MD [facility] ER DR NEUROLOGY DEPT. [place], [place] [address] (Wo rk) documented as of this encounter Visit Diagnoses Not on filedocumented in this encounter Additional Health Concerns Infection Onset Date Last Indicated Resolved Time History of C. difficileComment: C. diffiicile 08/20/2021 testing positive 05/25/21. documented as of this encounter Care Teams Hand Fretted Instrument Maker Relationship Specialty Start Date End Date Beatriz Maurice PA PCP - General Family Medicine 05/06/21 [address] [place] [address] documented as of this encounter
--- OUTSIDE RECORDS SUMMARY | 2022-02-14 11:17 | XMS_ITS | Encounter Summary ---
:1960 Author Organization [facility] [place] [address] Care Team Providers Name Role Phone Beatriz Maurice Primary Care Provider Encounter Details Date Type Department Care Team Description 07/31/2021 Orders Only Hematology and Oncology at Kj Wilson MD [facility] [place] [address] [place] [address] [phone] Social History Tobacco Use Types Packs/Day Years [...] MD [facility] DR HEMATOLOGY/[place] [address] Miroslava Pelayo APRN [facility] HEMATOLOGY/[place] [address] 02/24/2022 Office Visit Wound Care 02/24/2022 Appointment Hematology and Oncology 02/26/2022 Office Visit Neurology Leni Bustamante MD [facility] NEUROLOGY DEPT. [place], [place] [address] (Wo rk) documented as of this encounter Visit Diagnoses Not on filedocumented in this encounter Additional Health Concerns Infection Onset Date Last Indicated Resolved Time C. difficile 05/25/2021 05/25/2021 08/20/2021 5:29 AM EST documented as of this encounter Care Teams Hotel Casino Floorperson Relationship Specialty Start Date End Date Beatriz Maurice PA PCP - General Family Medicine 05/06/21 [address] [place] [address] documented as of this encounter
--- OUTSIDE RECORDS SUMMARY | 2022-02-14 11:17 | XMS_ITS | Encounter Summary ---
:1960 Author Organization [facility] [place] [address] Care Team Providers Name Role Phone Beatriz Maurice Primary Care Provider Reason for Visit Reason Onset Date Comments Financial Concerns 08/20/2021 Encounter Details Date Type Department Care Team Description 08/20/2021 Telephone Hematology and Oncology at Anahi Winters RN Financial Concerns [facility] [place] [address] Social History Tobacco Use Types Packs/Day [...] Telephone Encounter - Anahi Winters RN - 08/20/2021 4:11 PM EST [employer] provided him a card to use with filling scripts. Has a member ID number and phone number. RN instructed him to call and learn his balance in advance of next month's refill and to keep this office posted as he will likely need to be enrolled in [facility], but cannot until citlali won't cover costs. Herber will call them to follow up if he doesn't get a statement in the mail in the next week or so. In addition to the Xospata, all meds given inpatient were given without refill. Herber requests we used the [facility] in [place], [place], for the refills. Oral Chemotherapy Follow-up Note 08/20/2021 Herber Benjamín Iverson Jr., 1960 Assessment of self-administration of oral chemotherapy is performed via phone call with patient. The patient: ?? filled the prescription at pharmacy and began taking this medication. He missed 1 of therapy due to delivery issue. ?? read back the name and strength of the oral chemotherapy from the label, including the instructions for use as follows: Xospata, 40 mg tablet, take 3 tablets by mouth once daily, qty: 90, refills: 0 ?? was able to repeat directions for use in his/her own words and demonstrated understanding of the regimen, including safe handling of oral chemotherapy and its side effects. ?? did not have further questions or problems regarding the oral chemotherapy. ?? does not require further assistance in order to comply with oral chemotherapy. ?? was reminded to call the oncology clinic with any concerns or questions 24 hours a day / 7 days aweek and contact information was reviewed. documented in this encounter Plan of Treatment Upcoming Encounters Date Type Specialty Care Team Description 02/18/2022 Infusion Hematology and Oncology 02/21/2022 Infusion Hematology and Oncology 02/24/2022 Appointment Hematology and Oncology 02/24/2022 Office Visit Hematology and Oncology Parviz Modi MD [facility] DR HEMATOLOGY/[place] [address] Miroslava Pelayo APRN [facility] HEMATOLOGY/[place] [address] 02/24/2022 Office Visit Wound Care 02/24/2022 Appointment Hematology and Oncology 02/26/2022 Office Visit Neurology Leni Bustamante MD [facility] NEUROLOGY DEPT. [place], [place] [address] (Wo rk) documented as of this encounter Visit Diagnoses Not on filedocumented in this encounter Additional Health Concerns Infection Onset Date Last Indicated Resolved Time C. difficile 05/25/2021 05/25/2021 08/20/2021 5:29 AM EST History of C. difficileComment: C. 08/20/2021 08/20/2021 diffiicile testing positive 05/25/21. documented as of this encounter Care Teams Guide Alpine Relationship Specialty Start Date End Date Beatriz Maurice PA PCP - General Family Medicine 05/06/21 [address] [place] [address] documented as of this encounter
--- OUTSIDE RECORDS SUMMARY | 2022-02-14 11:17 | XMS_ITS | Encounter Summary ---
:1960 Author Organization [facility] [place] [address] Care Team Providers Name Role Phone Beatriz Maurice Primary Care Provider Encounter Details Date Type Department Care Team Description 08/07/2021 Telephone Hematology and Oncol ogy at [facility] Qi Zambrano, [place] [address] Social History Tobacco Use Types Packs/Day [...] Telephone Encounter - Qi Zambrano RN - 08/08/2021 3:39 PM EST RN worked with Violeta in pharmacy and inpatient MD and nursing on getting approvals for Venetoclax and Xospata. Zeferino obtained. Pharmacy notes in chart, please reference. documented in this encounter Plan of Treatment Upcoming Encounters Date Type Specialty Care Team Description 02/18/2022 Infusion Hematology and Oncology 02/21/2022 Infusion Hematology and Oncology 02/24/2022 Appointment Hematology and Oncology 02/24/2022 Office Visit Hematology and Oncology Parviz Modi MD [facility] DR HEMATOLOGY/[place] [address] Miroslava Pelayo APRN [facility] DR HEMATOLOGY/[place] [address] 02/24/2022 Office Visit Wound Care 02/24/2022 Appointment Hematology and Oncology 02/26/2022 Office Visit Neurology Leni Bustamante MD [facility] DR NEUROLOGY DEPT. [place], [place] [address] (Wo rk) documented as of this encounter Visit Diagnoses Not on filedocumented in this encounter Additional Health Concerns Infection Onset Date Last Indicated Resolved Time C. difficile 05/25/2021 05/25/2021 08/20/2021 5:29 AM EST documented as of this encounter Care Teams Cad Application Support Specialist Relationship Specialty Start Date End Date Beatriz Maurice PA PCP - General Family Medicine 05/06/21 [address] [place] [address] documented as of this encounter
--- OUTSIDE RECORDS SUMMARY | 2022-02-14 11:17 | XMS_ITS | Encounter Summary ---
:1960 Author Organization [facility] [place] [address] Care Team Providers Name Role Phone Beatriz Maurice Primary Care Provider Reason for Visit Reason Onset Date Comments Medication Problem 08/15/2021 Encounter Details Date Type Department Care Team Description 08/15/2021 Telephone Hematology and Oncology at Anahi Winters RN Medication Problem [facility] [place] [address] Social History Tobacco Use Types Packs/Day [...] Telephone Encounter - Anahi Winters RN - 08/15/2021 1:50 PM EST RN received notice from pharmacy that PA for Xospata completed, and pharmacist instructed patient tocall [id number] to arrange delivery. RN called and spoke to Herber. He did call [id number] and they think that it should arrive tomorrow as planned pending the holiday impacting the pantograph machine set up operator. RN discussed that unfortunately, nothing to do if itdoesn't come but wait for it to arrive. Herber understands. RN requested return call to office to readback med label next week. Herber says he will do this. documented in this encounter Plan of Treatment Upcoming Encounters Date Type Specialty Care Team Description 02/18/2022 Infusion Hematology and Oncology 02/21/2022 Infusion Hematology and Oncology 02/24/2022 Appointment Hematology and Oncology 02/24/2022 Office Visit Hematology and Oncology Parviz Modi MD [facility] DR HEMATOLOGY/[place] [address] Miroslava Pelayo APRN [facility] DR HEMATOLOGY/[place] [address] 02/24/2022 Office Visit Wound Care 02/24/2022 Appointment Hematology and Oncology 02/26/2022 Office Visit Neurology Leni Bustamante MD [facility] NEUROLOGY DEPT. [place], [place] [address] (Wo rk) documented as of this encounter Visit Diagnoses Not on filedocumented in this encounter Additional Health Concerns Infection Onset Date Last Indicated Resolved Time C. difficile 05/25/2021 05/25/2021 08/20/2021 5:29 AM EST documented as of this encounter Care Teams Assembly Machine Offbearer Relationship Specialty Start Date End Date Beatriz Maurice PA PCP - General Family Medicine 05/06/21 [address] [place] [address] documented as of this encounter
--- OUTSIDE RECORDS SUMMARY | 2022-02-14 11:17 | XMS_ITS | Encounter Summary ---
:1960 Author Organization [facility] [place] [address] Care Team Providers Name Role Phone Beatriz Maurice Primary Care Provider Encounter Details Date Type Department Care Team Description 08/19/2021 Telephone Hematology and Oncol ogy at [facility] Qi Zambrano, [place] [address] Social History Tobacco Use Types Packs/Day [...] Telephone Encounter - Qi Zambrano RN - 08/19/2021 10:12 AM EST RN received call at 10:10 from November with Lab reporting critical result(s) on patient: PLT 15 ANC 0.34 RN notified Miroslava Pelayo APRN of above results at 10:14. documented in this encounter Plan of Treatment Upcoming Encounters Date Type Specialty Care Team Description 02/18/2022 Infusion Hematology and Oncology 02/21/2022 Infusion Hematology and Oncology 02/24/2022 Appointment Hematology and Oncology 02/24/2022 Office Visit Hematology and Oncology Parviz Modi MD [facility] DR HEMATOLOGY/[place] [address] Miroslava Pelayo APRN [facility] HEMATOLOGY/[place] [address] 02/24/2022 Office Visit Wound Care 02/24/2022 Appointment Hematology and Oncology 02/26/2022 Office Visit Neurology Leni Bustamante MD [facility] DR NEUROLOGY DEPT. [place], [place] [address] (Wo rk) documented as of this encounter Visit Diagnoses Not on filedocumented in this encounter Additional Health Concerns Infection Onset Date Last Indicated Resolved Time C. difficile 05/25/2021 05/25/2021 08/20/2021 5:29 AM EST documented as of this encounter Care Teams Seamless Hosiery Knitter Relationship Specialty Start Date End Date Beatriz Maurice PA PCP - General Family Medicine 05/06/21 [address] [place] [address] documented as of this encounter
--- OUTSIDE RECORDS SUMMARY | 2022-02-14 11:17 | XMS_ITS | Encounter Summary ---
:1960 Author Organization [facility] Address [address] [place] [address] Care Team Providers Name Role Phone Beatriz Maurice Primary Care Provider Encounter Details Date Type Department Care Team Description 08/19/2021 Orders Only Hematology and Pierce, Miroslava Spivey, Acute my eloid leukemia Oncology at [facility] REP not having achieved [facility] rem [address] [place] [address] HEMATOLOGY/ONCOLOG [phone] Y [place]PT. [place] [address] Social History Tobacco Use Types Packs/Day [...] MD [facility] DR HEMATOLOGY/[place] [address] Miroslava Pelayo APRN [facility] HEMATOLOGY/[place] [address] 02/24/2022 Office Visit Wound Care 02/24/2022 Appointment Hematology and Oncology 02/26/2022 Office Visit Neurology Leni Bustamante MD [facility] ER NEUROLOGY DEPT. [place], [place] [address] (Wo rk) Scheduled Orders Name Type Priority Associated Diagnoses Order S chedule Prothrombin Time Lab Routine Acute myeloid leukemia n ot Expected: 08/26/2021 having achieved remission (A pproximate), Expires: 06/22/2022 documented as of this encounter Results XR [...] who have questions please contact the health before and after school daycare worker that requested your imaging first. ? Narrative 09/05/2021 5:20 PM EST EXAMINATION: XR FLUORO GUIDED LUMBAR PUNCTURE FOR IT CHEMOTHERAPY CLINICAL HISTORY: AML with COUNSELLORS disease COMPARISON: None Procedure:: After a discussion [...] FOR IT CHEMOTHERAPY CLINICAL HISTORY: AML with COUNSELLORS disease COMPARISON: None Procedure:: After a discussion [...] ho have questions please contact the health before and after school daycare worker that requested your imaging first. Miroslava Pelayo ONCOLOGY REP IMG FLUORO ORDERABLES CSF Culture (08/26/2021 1:45 PM EST) Component Value Ref Test Analysis Performed At [facility] Mobbles Range Method Time Signature Central No growth [facility] Nervous [facility] LABORATORY Gram Stain Cytocentrifuge Gram Stain performed [facility] No Neutrophils seen. [place] No microorganisms seen. [facility] LABORATORY Specimen (Source) Anatomical Collection Method Collection Time Re ceived Time Location / / Volume Laterality Cerebrospinal Fluid 08/26/2021 1:45 08/26 PM EST 2:40 PM EST Resulting Agency Comment Spec In Lab Miroslava Pelayo ONCOLOGY REP MICROBIOLOGY - GENERAL ORDER BRINA Performing Organization Address City/State/[place] [address] Leukemia Lymphoma Screen Cerebrospinal Fluid (08/26/2021 1:25 PM EST) [facility] Method Time Signature LLS BF Type CSF [facility] LABORATORY Leukemia See Comment [facility] Lymphoma [facility] LABORATORY Comment: See Fluid Review Report [id number] under Hematopathology Reports. Specimen (Source) Anatomical Collection Method Collection Time Re ceived Time Location / / Volume Laterality Cerebrospinal Fluid 08/26/2021 1:25 08/26 PM EST 2:28 PM EST Resulting Agency Comment Spec In Lab Miroslava Pelayo APRN BODY FLUIDS AND STOOLS ORDER BRINA Performing Organization Address City/[facility]/ZIP Code Phon e Number [address] Glucose Level CSF (08/26/2021 1:25 PM EST) P athologist Signature Glucose, CSF 63 mg/dL [facility] LABORATORY Comment: CSF at equilibrium equals appro ximately 60-80% of plasma glucose. Specimen (Source) Anatomical Collection Method Collection Time Re ceived Time Location / / Volume Laterality Cerebrospinal Fluid 08/26/2021 1:25 08/26 PM EST 2:28 PM EST Resulting Agency Comment Spec In Lab Miroslava Pelayo ONCOLOGY REP BODY FLUIDS AND STOOLS ORDER BRINA Performing Organization Address City/[facility]/ZIP Code Phon e Number [address] Protein Level CSF (08/26/2021 1:25 PM EST) P athologist Signature T Protein, CSF 21 15 - 45 [facility] mg/dL [facility] LABORATORY Xanthochromia Neg [facility] LABORATORY Specimen (Source) Anatomical Collection Method Collection Time Re ceived Time Location / / Volume Laterality Cerebrospinal Fluid 08/26/2021 1:25 08/26 PM EST 2:28 PM EST Resulting Agency Comment Spec In Lab Miroslava Pelayo APRN BODY FLUIDS AND STOOLS ORDER BRINA Performing Organization Address City/[facility]/ZIP Code Phon e Number [address] APTT (08/26/2021 8:16 AM EST) P athologist Signature PTT 28 25 - 37 sec [facility] LABORATORY Comment: The PTT is [...] EST Resulting Agency Comment Spec In Lab Mrioslava Pelayo ONCOLOGY REP HEMATOLOGY ORDERABLES Performing Organization Address City/State/[place] [address] documented in this encounter Visit Diagnoses Diagnosis Acute myeloid leukemia not having achiev ed remission Acute myeloid leukemia not having achiev ed remission documented in this encounter Additional Health Concerns Infection Onset Date Last Indicated Resolved Time C. difficile 05/25/2021 05/25/2021 08/20/2021 5:29 AM EST documented as of this encounter Care Teams Gaming Manager Relationship Specialty Start Date End Date Beatriz Maurice PA PCP - General Family Medicine 05/06/21 [address] [place] [address] documented as of this encounter
--- OUTSIDE RECORDS SUMMARY | 2022-02-14 11:17 | XMS_ITS | Encounter Summary ---
:1960 Author Organization [facility] [place] [address] Care Team Providers Name Role Phone Beatriz Maurice Primary Care Provider Encounter Details Date Type Department Care Team Description 08/12/2021 Orders Only Wound Care at [facility] Attent ion to ileostomy [facility] [place] [address] Social History Tobacco Use Types Packs/Day [...] encounter Progress Notes Serenity Frey RN - 08/12/2021 10:02 AM EST Ostomy scripts, sending to [facility]. documented in this encounter Plan of Treatment Upcoming Encounters Date Type Specialty Care Team Description 02/18/2022 Infusion Hematology and Oncology 02/21/2022 Infusion Hematology and Oncology 02/24/2022 Appointment Hematology and Oncology 02/24/2022 Office Visit Hematology and Oncology Parviz Modi MD [facility] DR HEMATOLOGY/[place] [address] Miroslava Pelayo APRN [facility] HEMATOLOGY/[place] [address] 02/24/2022 Office Visit Wound Care 02/24/2022 Appointment Hematology and Oncology 02/26/2022 Office Visit Neurology Leni Bustamante MD [facility] ER NEUROLOGY DEPT. [place], [place] [address] (Wo rk) documented as of this encounter Visit Diagnoses Diagnosis Attention to ileostomy documented in this encounter Additional Health Concerns Infection Onset Date Last Indicated Resolved Time C. difficile 05/25/2021 05/25/2021 08/20/2021 5:29 AM EST History of C. difficileComment: C. 08/20/2021 08/20/2021 diffiicile testing positive 05/25/21. documented as of this encounter Care Teams Shuttle Veneering Supervisor Relationship Specialty Start Date End Date Beatriz Maurice PA PCP - General Family Medicine 05/06/21 [address] [place] [address] documented as of this encounter
--- OUTSIDE RECORDS SUMMARY | 2022-02-14 11:17 | XMS_ITS | Encounter Summary ---
:1960 Author Organization [facility] [place] [address] Care Team Providers Name Role Phone Beatriz Maurice Primary Care Provider Encounter Details Date Type Department Care Team Description 08/06/2021 Telephone [place]ology [place] [facility] [place] Qi Zambrano, [place] [address] Social History Tobacco Use Types Packs/Day [...] Telephone Encounter - Qi Zambrano RN - 08/07/2021 9:21 AM EST RN faxed confirmation requested to [employer] Patient [facility] Department [phone] Azar's signature. Called to follow up on status. [facility] rep stated it would be 3-4 days for determination, then they could schedule delivery of med. documented in this encounter Plan of Treatment Upcoming Encounters Date Type Specialty Care Team Description 02/18/2022 Infusion Hematology and Oncology 02/21/2022 Infusion Hematology and Oncology 02/24/2022 Appointment Hematology and Oncology 02/24/2022 Office Visit Hematology and Oncology Parviz Modi MD [facility] DR HEMATOLOGY/[place] [address] Miroslava Pelayo APRN [facility] DR HEMATOLOGY/[place] [address] 02/24/2022 Office Visit Wound Care 02/24/2022 Appointment Hematology and Oncology 02/26/2022 Office Visit Neurology Leni Bustamante MD [facility] DR NEUROLOGY DEPT. [place], [place] [address] (Wo rk) documented as of this encounter Visit Diagnoses Not on filedocumented in this encounter Additional Health Concerns Infection Onset Date Last Indicated Resolved Time C. difficile 05/25/2021 05/25/2021 08/20/2021 5:29 AM EST documented as of this encounter Care Teams Equipment Service Lead Relationship Specialty Start Date End Date Beatriz Maurice PA PCP - General Family Medicine 05/06/21 [address] [place] [address] documented as of this encounter
--- OUTSIDE RECORDS SUMMARY | 2022-02-14 11:17 | XMS_ITS | Encounter Summary ---
:1960 Author Organization [facility] Address [facility] [place] [address] Care Team Providers Name Role Phone Beatriz Maurice Primary Care Provider Encounter Details Date Type Department Care Team Description 08/21/2021 Orders Only Radiology at [facility] [place] Yolette Solano, Acute myeloid leukemia [facility] AUTO HEATER MECHANIC not having achieved Drive [facility] [place] [address] DIAGNOSTC RADIOLOGY [phone] [place], [place] [address] (Wo rk) Social History Tobacco [...] [facility] DR HEMATOLOGY/[place] [address] Miroslava Pelayo APRN [facility] HEMATOLOGY/[place] [address] 02/24/2022 Office Visit Wound Care 02/24/2022 Appointment Hematology and Oncology 02/26/2022 Office Visit Neurology Leni Bustamante MD [facility] NEUROLOGY DEPT. [place], [place] [address] (Wo rk) documented as of this encounter Results Prothrombin Time (08/26/2021 8:16 AM EST) athologist Signature PT 10.9 9.4 - 12.5 [facility] LABORATORY INR 1.0 [facility] LABORATORY Comment: An INR <2.0 indicates [...] Organization Address City/State/[place] [address] (ABNORMAL) Platelet count (08/26/2021 8:16 AM EST) athologist Signature Platelets 36 (L) 145 - 357 [facility] x10(3)/[facility] LABORATORY Plat Immature 2.7 0.0 - 7.4 [facility] % % [facility] LABORATORY Comment: Limitation of the Immature Platelet Frac tion (IPF)-May be less reliable when the platelet count is less than 77r704/u L due to statistical imprecision. The IPF [...] in a decreased state of production. References: [employer] The Clinical Value of the Immature Platelet Fraction (IPF) in Cell Recovery Document Number [id number] 01/2011 [employer] 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 difficileComment: C. diffiicile 08/20/2021 testing positive 05/25/21. documented as of this encounter Care Teams Inspector Packer Glass Container Relationship Specialty Start Date End Date Beatriz Maurice PA PCP - General Family Medicine 05/06/21 [address] [place] [address] documented as of this encounter
--- OUTSIDE RECORDS SUMMARY | 2022-02-14 11:17 | XMS_ITS | Encounter Summary ---
:1960 Author Organization [place] [address] Care Team Providers Name Role Phone Beatriz Maurice Primary Care Provider Reason for Visit Reason Onset Date Comments Medication Problem 08/13/2021 Encounter Details Date Type Department Care Team Description 08/13/2021 Telephone Hematology and Oncology at [place] [address] Social History Tobacco Use Types Packs/Day [...] Telephone Encounter - Anahi Winters RN - 08/13/2021 3:17 PM EST Case discussed in Ly team meeting 08/12 after his visit: continue Xospata, decrease Venetoclax to 100 mg/day. Patient only has a few days of Xospata from the emergency script filled by [facility] insurance appeal process is completed. RN reached out to Violeta Joya [facility] on 08/13 and received update: Insurance appeal expected to be successful but they have until , 08/14 at noon to provide their official answer. Violeta has contacted [id number] and reactivated Dr. Azar's original script for the Xospata placed on 07/12. They confirmed to her that they have the script, they have drug in stock to fill the script, and can ship the medication via overnight delivery. However, with the upcoming holiday, both pharmacy and shipping service have decreased staff/hours which may cause delay. Violeta will continue to seek insurance answer for next steps and keep them aware of the urgent timeline. Violeta will update this RN whenanswer provided. RN called to introduce herself to Herber. Herber had been working with BMT navigators as was on his way to SCT but then relapsed and was unable to go to SCT. Oral Chemotherapy Assessment Note 08/13/2021 Herber Iverson Jr., 1960 Assessment of Herber Iverson Jr.???s living situation reveals that he lives with a caregiver. Name andcontact information for caregiver: girlfriend, Morales Orlando, info in chart correct. The patient will be responsible for his medication administration. RN reviewed hazardous drug teaching including hand washing and handling of excrement/ostomy change. Medications reviewed, including prescription and non-prescription medications. Herber Iverson Jr. has insurance coverage issues and/or co-pay is not manageable. Assistance will be provided through insurance appeal. [employer] [facility] enrollment will be pursued if needed pending appeal. He has home health involvement through [facility]. They saw him last Thursday. Contact information for home health is phone: , fax: . Home health agency called and informed that patient will be starting oral chemotherapy. RN called and left message for triage nurse. RN spoke to Jaquan, manager welding, they have his full med list and don't have any questions or need any orders at this time. The patient reports that he/she: ?? is able to swallow pills. He sometimes needs to use applesauce for larger pills and this solves the issue. ?? is able to open medication bottles/packages without problems. ?? is not experiencing any symptoms that will affect the ability to keep down medications (no nausea, vomiting, mucositis, or difficulty swallowing). ?? is NOT willing to fill prescriptions with [facility]. Needs to follow his insurance mandates for financial reasons. What pharmacy would the patient like to have the medication dispensed from? Pharmacy Name: [id number] - Phone #: [phone] / Fax #: [phone] The patient verifies: ?? ability to read and understand the drug label instructions impaired by diplopia at the moment kevyn Paula helps and also has understanding. ?? understanding of treatment plan with oral chemotherapy. ?? understanding that medication will be dispensed from [id number] pharmacy. This medication will be delivered to the home (instructed to call nurse if he/she does not hear from the pharmacy regarding delivery). ?? that he will need labs/visits. He was just seen in clinic 08/12 and next RTC is pending provider note completion. Oral Chemotherapy Follow-up Note: Venetoclax 08/13/2021 Herber Iverson Jr., 1960 Assessment of self-administration of oral chemotherapy is performed via phone call with patient. The patient: ?? filled the prescription at [id number] and began taking this medication on 07/31 inpatient. No lapse in this medication at discharge. ?? read back the name and strength of the oral chemotherapy from the label, including the instructions for use as follows: Venetoclax 100 mg tablet. Take 2 tablets daily with food and large glass of water. Qty: 60, refills 11 before 07/30/22. ?? was able to repeat directions for [...] days aweek and contact information was reviewed. Herber confirms his Venetoclax dose was not changed until discharge. He took his first 100 mg dose on 08/09. Herber knows to call office when Xospata arrives. RN reviewed refill process for Venetoclax (to call [id number]/follow [id number] instructions for refill as there are 12 refills on his script). Herber had no further questions at this time. Knows to call office if any new symptoms arise. documented in this encounter Plan of Treatment Upcoming Encounters Date Type Specialty Care Team Description 02/18/2022 Infusion Hematology and Oncology 02/21/2022 Infusion Hematology and Oncology 02/24/2022 Appointment Hematology and Oncology 02/24/2022 Office Visit Hematology and Oncology Parviz Modi MD [facility] DR HEMATOLOGY/[place] [address] Miroslava Pelayo APRN [facility] DR HEMATOLOGY/[place] [address] 02/24/2022 Office Visit Wound Care 02/24/2022 Appointment Hematology and Oncology 02/26/2022 Office Visit Neurology Leni Bustamante MD [facility] NEUROLOGY DEPT. [place], [place] [address] (Wo rk) documented as of this encounter Visit Diagnoses Not on filedocumented in this encounter Additional Health Concerns Infection Onset Date Last Indicated Resolved Time C. difficile 05/25/2021 05/25/2021 08/20/2021 5:29 AM EST documented as of this encounter Care Teams Fleece Tier Relationship Specialty Start Date End Date Beatriz Maurice PA PCP - General Family Medicine 05/06/21 [address] [place] [address] documented as of this encounter
--- OUTSIDE RECORDS SUMMARY | 2022-02-14 11:17 | XMS_ITS | Encounter Summary ---
:1960 Author Organization [facility] Address [facility] [place] [address] Care Team Providers Name Role Phone Beatriz Maurice Primary Care Provider Encounter Details Date Type Department Care Team Description 08/06/2021 Orders Only Hematology and Kj Azar Acute my eloid leukemia Oncology at [facility] MD Pattie not having achieved [facility] [place] [address] [place] [id number] [phone] Social History Tobacco Use Types Packs/Day Years [...] [facility] DR HEMATOLOGY/[place] [address] Miroslava Pelayo APRN [facility] HEMATOLOGY/[place] [address] 02/24/2022 Office Visit Wound Care 02/24/2022 Appointment Hematology and Oncology 02/26/2022 Office Visit Neurology Leni Bustamante MD [facility] NEUROLOGY DEPT. [place], [place] [address] (Wo rk) documented as of this encounter Results XR Fluoro Guided Lumbar Puncture For IT Chemotherapy (08/26/2021 2:11 PM EST) Anatomical Region Laterality Modality L-spine N/A Radio Fluoroscopy Specimen (Source) Anatomical Location Collection Method / Collectio n Time Received Time / Laterality Volume Impressions 08/28/2021 1:14 PM EST Successful fluoroscopic-guided lumbar puncture for delivery of intrathecal chemotherapy without immediate complicat ion. ASSISTANT BOYS TRACK COACH: Yolette Solano APRN Attending: Zaid Alford MD was present fo r orellana portions of this procedure Procedure performed by Yolette Solano APRN Thank you for letting us participate in the care of this patient. ??If you are a health care provider and have any questi ons regarding this report, please contact the number below. ??For patients who have questions please contact the health day care aide that requested your imaging first. ? Electronically signed by: Shae Alford MD, [facility] ([phone]), at 08/28/2021 1:14 PM Narrative 08/28/2021 1:14 PM EST EXAMINATION: XR FLUORO GUIDED LUMBAR PUNCTURE FOR IT CHEMOTHERAPY CLINICAL HISTORY: AML w/ SKI PATROL DIRECTOR involvement TECHNIQUE: After thorough discussion wit h [...] fashion. A preprocedural timeout was performed per [facility] protocol. The pat ient's skin was [...] FOR IT CHEMOTHERAPY CLINICAL HISTORY: AML w/ SKI PATROL DIRECTOR involvement TECHNIQUE: After thorough discussion wit h [...] fashion. A preprocedural timeout was performed per [facility] protocol. The pat ient's skin was [...] of intrathecal chemotherapy without immediate complicat ion. ASSISTANT BOYS TRACK COACH: Yolette Solano APRN Attending: Zaid Alford MD [...] ho have questions please contact the health day care aide that requested your imaging first. Electronically signed by: Shae Alford MD, [facility] ([phone]), at 08/28/2021 1:14 PM Kj Azar MD IMG FLUORO ORDERABLES XR Fluoro Guided Lumbar Puncture For IT Chemotherapy (08/12/2021 1:59 PM EST) Anatomical Region Laterality Modality L-spine N/A Radio Fluoroscopy Specimen (Source) Anatomical Location Collection Method / Collectio n Time Received Time / Laterality Volume Impressions 08/12/2021 3:58 PM EST Technically successful fluoroscopic guided lumbar puncture for the administration of intrathecal chemothera py as detailed above I supervised the evaluation workup of th is patient was present for the lumbar puncture in the fluoroscopy suite. Preliminary report signed by: Moisés Sharma at 08/12/2021 3:41 PM I have personally reviewed the image(s) and the resident's interpretation and agree with the findings, Jona jung MD at 08/12/2021 3:58 PM Thank you for letting us participate in the care of this patient. ??If you are a health care provider and have any questi ons regarding this report, please contact the number below. ??For patients who have questions please contact the health day care aide that requested your imaging first. ? Electronically signed by: Jona vincent MD, [facility] ([phone]), at 08/12/2021 3:58 PM Narrative 08/12/2021 3:58 PM EST EXAMINATION: XR FLUORO GUIDED LUMBAR PUNCTURE FOR IT CHEMOTHERAPY CLINICAL HISTORY: AML w/ SKI PATROL DIRECTOR involvement COMPARISON: Lumbar puncture 08/05/2021 FINDINGS: Written informed consent was o btained from the patient following discussion of the risk and benefits of f luoroscopically guided lumbar puncture. Under fluoroscopic guidance, the L2-3 le kari was identified and the site was marked. The area was prepped and draped using maximal sterile technique. The site was anesthetized with 1% buffered l idocaine. Under fluoroscopic guidance a 22-gauge spinal needle was advanced into the thecal sac. Clear CSF was obtained. 10 cc of fluid was removed and sent to [facility] laboratory as requested by the ordering provider in the proper tubes. Intrathecal chemotherapy was then admini stered by the hematology/oncology service per their protocol. Please see kunal sarmientoir separately dictated note for additional information. Fluoroscopic time: 0.05 minutes Procedure Note Jona Lowry MD - 08/12/2021Forma tting of this note might be different from the original. EXAMINATION: XR FLUORO GUIDED LUMBAR PUN CTURE FOR IT CHEMOTHERAPY CLINICAL HISTORY: AML w/ SKI PATROL DIRECTOR involvement COMPARISON: Lumbar puncture 08/05/2021 FINDINGS: Written informed consent was o btained from the patient following discussion of the risk and benefits of f luoroscopically guided lumbar puncture. Under fluoroscopic guidance, the L2-3 le kari was identified and the site was marked. The area was prepped and draped using maximal sterile technique. The site was anesthetized with 1% buffered l idocaine. Under fluoroscopic guidance a 22-gauge spinal needle was advanced into the thecal sac. Clear CSF was obtained. 10 cc of fluid was removed and sent to [facility] laboratory as requested by the ordering provider in the proper tubes. Intrathecal chemotherapy was then admini stered by the hematology/oncology service per their protocol. Please see kunal sarmientoir separately dictated note for additional information. Fluoroscopic time: 0.05 minutes IMPRESSION Technically successful fluoroscopic guid ed lumbar puncture for the administration of intrathecal chemothera py as detailed above I supervised the evaluation workup of th is patient was present for the lumbar puncture in the fluoroscopy suite. Preliminary report signed by: Moisés Sharma at 08/12/2021 3:41 PM I have personally reviewed the image(s) and the resident's interpretation and agree with the findings, Jona jung MD at 08/12/2021 3:58 PM Thank you for letting us participate in the care of this patient. If you are a health care provider and have any questi ons regarding this report, please contact the number below. For patients w ho have questions please contact the health day care aide that requested your imaging first. 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 difficile 05/25/2021 05/25/2021 08/20/2021 5:29 AM EST documented as of this encounter Care Teams Through Operator Relationship Specialty Start Date End Date Beatriz Maurice PA PCP - General Family Medicine 05/06/21 [address] [place] [address] documented as of this encounter
--- OUTSIDE RECORDS SUMMARY | 2022-02-14 11:17 | XMS_ITS | Encounter Summary ---
:1960 Author Organization [facility] Address [facility] [place] [address] Care Team Providers Name Role Phone Beatriz Maurice Primary Care Provider Encounter Details Date Type Department Care Team Description 08/08/2021 Specialty Pharmacy Hematology and Oncology Miguel Angel Archer MD at [facility] [address] HEMATOLOGY/[place] [address] [place] [address] [phone] (Wo rk) Social History Tobacco Use Types [...] [facility] DR HEMATOLOGY/[place] [address] Miroslava Pelayo APRN [facility] HEMATOLOGY/[place] [address] 02/24/2022 Office Visit Wound Care 02/24/2022 Appointment Hematology and Oncology 02/26/2022 Office Visit Neurology Leni Bustamante MD [facility] NEUROLOGY DEPT. [place], [place] [address] (Wo rk) documented as of this encounter Visit Diagnoses Not on filedocumented in this encounter Additional Health Concerns Infection Onset Date Last Indicated Resolved Time C. difficile 05/25/2021 05/25/2021 08/20/2021 5:29 AM EST documented as of this encounter Care Teams Systems Specialist Relationship Specialty Start Date End Date Beatriz Maurice PA PCP - General Family Medicine 05/06/21 [address] [place] [address] documented as of this encounter
--- OUTSIDE RECORDS SUMMARY | 2022-02-14 11:17 | XMS_ITS | Encounter Summary ---
:1960 Author Organization [facility] Address [facility] [place] [address] Care Team Providers Name Role Phone Beatriz Maurice Primary Care Provider Encounter Details Date Type Department Care Team Description 08/08/2021 Notes Only Radiology at [facility] Yolette Solano APRN [facility] [place] [phone] [facility] RADIOLOGY [phone] [place], [place] [address] (Wo rk) Social History Tobacco [...] encounter Progress Notes Yolette Solano APRN - 08/08/2021 10:06 AM ESTSummary: Pre-procedure note for fluoro-guided LP for IT chemo infusion Images from the original note were not included. Neuroradiology FOCUSED H&P and PRE-PROCEDURE NOTE: PCP: LEISA Munguia Referring Provider: Kj Azar MD Planned Procedure: Fluoro-guided LP for CSF collection and IT chemo infusion Procedure Indication: AML Procedure request received through Interventional Radiology eDH order queue. There are no answered order specific questions. Presenting Diagnosis/ Complaint: Herber Iverson Jr. is a 61 y.o. male with AML receiving IT chemotherapy. Past Medical/Surgical History: Patient Active Problem List Diagnosis Code ??? Acute leukemia C95.00 ??? Clostridium difficile colitis A04.72 ??? 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 [COMPLETED] magnesium sulfate 2 g in sterile water 50 mL infusion 2 g Intravenous Once Maldonado Rivera MD Stopped at 08/07/21 1145 ??? enoxaparin (Lovenox) (60 mg/0.6 mL) subcutaneous injection 50 mg 50 mg Subcutaneous BID Maldonado Rivera MD 50 mg at 08/08/21 0923 ??? loperamide (Imodium A-D) capsule 2 mg 2 mg Oral TID Maldonado Rivera MD 2 mg at 08/08/21 0920 ??? diphenhydrAMINE/aluminum-magnesium hydroxide with simethicone/lidocaine (BMX) (6.67 mg-0.83 mg-13.33 mg-1.33 mg/mL) oral liquid 5 mL 5 mL Oral Q4H While awake Sari Yuan MD 5 mL at 115 ??? Oral Chemotherapy (Inpatient Use Only) Oral Per Pharmacy Kj Azar MD ??? venetoclax (Venclexta) tablet 200 mg 200 mg Oral Daily with dinner Kj Azar MD 200 mg at 08/07/21 1734 ??? gabapentin (Neurontin) capsule 300 mg 300 mg Oral BID Maldonado Rivera MD 300 mg at 08/08/21 0920 ??? chlorhexidine (Peridex) 0.12 % oral solution 15 mL 15 mL Oral TID Maldonado Rivera MD 15 mL at 08/07/21 0937 ??? phenoL 1.4% (Chloraseptic) spray 1 spray 1 spray Oral Q2H PRN Maldonado Rivera MD 1 spray at 07/29/21 1114 ??? vancomycin (Vancocin) capsule 125 mg 125 mg Oral BID Maldonado Rivera MD 125 mg at 08/08/21918 ??? levoFLOXacin (Levaquin) tablet 750 mg 750 mg Oral Daily Maldonado Rivera MD 750 mg at 08/08/21918 ??? fluconazole (Diflucan) tablet 400 mg 400 mg Oral Daily Maldonado Rivera MD 400 mg at ??? Oral Chemotherapy (Inpatient Use Only) Oral Per Pharmacy Miguel Angel Archer MD ??? gilteritinib (Xospata) Tab 120 mg 120 mg Oral Daily Maldonado Rivera MD 120 mg at 08/08/21912 ??? acyclovir (Zovirax) tablet 400 mg 400 mg Oral BID Maldonado Rivera MD 400 mg at 08/08/21918 ??? pantoprazole EC (Protonix) tablet 40 mg 40 mg Oral Daily Maldonado Rivera MD 40 mg at 08/08/21918 ??? flecainide (Tambocor) tablet 50 mg 50 mg Oral BID Deng Pérez MD 50 mg at 08/08/21918 ??? metoprolol tartrate (Lopressor) tablet 12.5 mg 12.5 mg Oral Q6H Deng Pérez MD 12.5 mg at 08/08/21918 ??? sodium chloride 0.9 % (flush) (BD PosiFlush Normal Saline 0.9) flush 5 mL 5 mL Intravenous BID Deng Pérez MD 5 mL at 08/08/21922 ??? sodium chloride 0.9 % (flush) (BD PosiFlush Normal Saline 0.9) flush 5-20 mL 5-20 mL IntravenousQ1 Min PRN Deng Pérez MD ??? tamsulosin (Flomax) capsule 0.4 mg 0.4 mg Oral Daily Deng Pérez MD 0.4 mg at 08/08/21918 Current Outpatient Medications on File Prior to Visit Medication Sig Dispense Refill ??? loperamide (Imodium A-D) 2 mg Capsule Take 1 capsule by mouth 3 times daily. 90 tablet 0 ??? metoprolol succinate XL (Toprol-XL) 50 mg Tablet Sustained Release 24 hr Take 1 tablet by mouth daily. 30 tablet 12 ??? acyclovir (Zovirax) 400 mg Tablet Take 1 tablet by mouth 2 times daily. 60 tablet 0 ??? fluconazole (Diflucan) 200 mg Tablet Take 2 tablets by mouth daily for 30 days. 60 tablet 0 ??? gabapentin (Neurontin) 300 mg Capsule Take 1 capsule by mouth 2 times daily. 90 capsule 0 ??? levoFLOXacin (Levaquin) 750 mg Tablet Take 1 tablet by mouth daily. 30 tablet 0 ??? tamsulosin (Flomax) 0.4 mg Capsule Take 1 capsule by mouth daily. 90 tablet 0 ??? vancomycin (Vancocin) 125 mg Capsule Take 1 capsule by mouth 2 times daily. 90 capsule 0 ??? sulfamethoxazole-trimethoprim DS (Bactrim DS) 800-160 mg Tablet Take 1 tablet by mouth three times a week. 30 tablet 0 ??? enoxaparin (Lovenox) 40 mg/0.4 mL Syringe Inject 0.4 mLs subcutaneously 2 times daily for 30 days. 24 mL 0 ??? venetoclax (Venclexta) 100 mg tablet Take 2 tablets (200 mg) by mouth daily. Take with food and a large glass of water. Call clinic before starting medication. Indications: acute myeloid leukemia, a type of blood cancer 60 tablet 12 ??? gilteritinib (Xospata) 40 mg tablet Take 3 tablets (120 mg) by mouth daily. Call clinic before starting medication. 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 oxyCODONE (Roxicodone) 5 mg Tablet Take 1 tablet by mouth every 4 hours as needed for Pain. 10 tablet 0 ??? LORazepam (Ativan) 1 mg Tablet Take 1 tablet after arriving at [facility] and approximately 30 minutesprior to bone marrow biopsy procedure. Do not take while driving. 1 tablet 0 ??? flecainide (TAMBOCOR) 50 mg Tablet Take 1 tablet by mouth 2 times daily. 60 tablet 3 ??? loperamide (Imodium A-D) 2 mg Capsule Take 1 capsule by mouth 2 times daily as needed for Diarrhea (Take once daily or twice daily based on the consistency of your stool.). 30 tablet 0 ??? metoprolol tartrate (Lopressor) 25 mg Tablet Take 0.5 tablets by mouth every 6 hours. 60 tablet 0 ??? famotidine (Pepcid) 20 mg Tablet Take 2 tablets by mouth daily. 30 tablet 12 Allergies: Other [unclassified drug] and Metoprolol Labs: Lab Results Component Value Date PLATELET 39 (L) 08/08/2021 INR 1.0 08/06/2021 ALKPHOS 167 (H) 08/08/2021 AST 31 08/08/2021 ALBUMIN 3.4 08/08/2021 BILIDIR 0.1 08/08/2021 BILITOT 0.3 08/08/2021 ALT 37 08/08/2021 Imagin08/05/2021 Fluoro LP for IT chemo Physical Exam: Pending (to be performed in angio the day of procedure) Assessment: 61 y.o. 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 PMH includes afib (not on anticoagulation), and c-diff colitis. He is receiving Lovenox for DVT prophylaxis while in the hospital and is on soap and water precautions for the c-diff infection. Lovenox to be held prior to procedure and platelet count/INR to be drawn the day of the procedure. He has no contraindications for this procedeure at thistime. Plan: - Will proceed with fluoro-guided LP for IT chemo infusion procedure - Labs to be obtained on day of procedure: Platelet count/INR - Meds to hold: Hold Lovenox for 12 hours prior to this procedure - Position: Prone - Antibiotic prophylaxis: None - Sedation: Local - Consent: To be obtained on the day of the procedure Yolette Solano, NORRIS, CUSTOMER SERVICE REP 08/08/2021 10:07 AM documented in this encounter Plan of Treatment Upcoming Encounters Date Type Specialty Care Team Description 02/18/2022 Infusion Hematology and Oncology 02/21/2022 Infusion Hematology and Oncology 02/24/2022 Appointment Hematology and Oncology 02/24/2022 Office Visit Hematology and Oncology Parviz Modi MD [facility] DR HEMATOLOGY/[place] [address] Miroslava Pelayo APRN [facility] DR HEMATOLOGY/[place] [address] 02/24/2022 Office Visit Wound Care 02/24/2022 Appointment Hematology and Oncology 02/26/2022 Office Visit Neurology Leni Bustamante MD [facility] NEUROLOGY DEPT. [place], [place] [address] (Wo rk) documented as of this encounter Visit Diagnoses Not on filedocumented in this encounter Additional Health Concerns Infection Onset Date Last Indicated Resolved Time C. difficile 05/25/2021 05/25/2021 08/20/2021 5:29 AM EST documented as of this encounter Care Teams Laser Operator Relationship Specialty Start Date End Date Beatriz Maurice PA PCP - General Family Medicine 05/06/21 [address] [place] [address] documented as of this encounter
--- OUTSIDE RECORDS SUMMARY | 2022-02-14 11:17 | XMS_ITS | Encounter Summary ---
:1960 Author Organization [facility] Address [facility] [place] [address] Care Team Providers Name Role Phone Beatriz Maurice Primary Care Provider Reason for Visit Reason Comments Follow-up Encounter Details Date Type Department Care Team Description 08/12/2021 Office Visit Hematology and Radha Modi MD [facility] DR HEMATOLOGY/[place] [address] Acute myeloid leukemia in relapse; Oncology at [facility] Hayley Palmer APRN [facility] DR HEMATOLOGY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 Social History Tobacco Use Types Packs/Day Years [...] Sign Reading Time Taken Comments Blood Pressure 113/76 08/12/2021 10:10 AM EST Pulse 80 08/12/2021 10:10 AM EST Temperature 36.9 ??C (98.4 ??F) 08/12/2021 10:10 AM EST Respiratory Rate 20 08/12/2021 10:10 AM EST Oxygen Saturation 99% 08/12/2021 10:10 AM EST Inhaled Oxygen Concentration - - Weight 99.2 kg (218 lb 12.8 oz) 08/12/2021 10:10 AM wit h shoes EST Height 178.3 cm (5' 10.2) 08/12/2021 10:10 AM with jose armando es EST Body Mass Index 31.22 08/12/2021 10:10 AM EST documented in this encounter Progress Notes Parviz Modi MD - 08/12/2021 10:15 AM EST HEMATOLOGY/BMT CONSULTATION VISIT NOTE CHIEF COMPLAINT: Herber Iverson Jr. is a 61 y.o. male referred by Dr. Beatriz Maurice for evaluation of leukemia. Data Review (From Recent Hospital discharge summary and the EMR) Admitted to [facility] 04/29/21 for leukocytosus. Discharged 04/30/21. 04/30/21 CBC [...] (53% of 117 WBC/uL) 07/29/21 LP - cleared blasts on LP/IT chemo #6 LP - no blasts - plan to change to weekly LP and IT chemo. 08/06/21 BM Bx - 90% cellular with increased immature precursors suggestive of persistent disease but low blast count. 08/08/21 Discharged after reinduction with gilteritinib and venetoclax ORIGINAL HISTORY OF PRESENT ILLNESS Herber Iverson Jr. dates the onset of his illness to earlier this summer. He has felt more tired than usual but attributed it to the humidity. About 3 weeks ago his fatigue was so bad that he went to a clinic in [facility]. He was evaluated for a UTI that was negative. 1 week ago today he saw his PCPwho ended up gatting a CBC showing abnormal counts and he was admitted to [facility]. Other than fatigue has had no fevers, chills or drenching sweats. Has lost a few lbs - <10. Appetite has been down recently. No bleeding or bruising. Was very actived when younger - played a lot of sports into his 40's. INTERIM HPI Herber is seen in f/u after recent admission for induction chemotherapy for newly diagnosed AML.Was discharged on 08/08. Had a good [place] - his girlfriend and her mom were there and they had turkey. Appetite is good. Feels he is drinking well. No fevers, chills or sweats. Has noted no side effects on his leukemia meds. Vomited once on 08/08 but none since. 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 Social - has a girlfriend and his boss Al as support. FH F - at ~70 of lung cancer - wsas a heavy smoker M - alive at 78 - no known health issues Siblings - No full siblings. 1/2 sister of AIDS, 1/2 brother is 51 - health unknown REVIEW OF SYSTEMS Constitutional --Energy level: improving --Pain: none --Fevers/chills/sweats: No --Unexpected weight loss or gain: [...] 400 mg, Oral, 2 TIMES DAILY ??? enoxaparin (LOVENOX) 100 mg, Subcutaneous, DAILY [...] XL (TOPROL-XL) 50 mg, Oral, DAILY ??? sulfamethoxazole-trimethoprim DS (Bactrim [...] beat PHYSICAL EXAM VITAL SIGNS: Blood pressure 113/76, pulse 80, temperature 36.9 ??C (98.4 ??F), temperature source Temporal, resp. rate 20, height 178.3 cm (5' 10.2), weight 99.2 kg (218 lb 12.8 oz), SpO2 99 %. GENERAL: Herber Iverson Jr. is a chronically ill-appearing 61 y.o. male in no acute distress. ENT: Sinuses non-tender. Oropharynx with white coating on tongue.. No masses. ENDOCRINE: No thyromegaly palpated. CARDIOVASCULAR: Heart with regular rate and rhythm without S3,S4 or murmurs. No cyanosis or peripheral edema. PULMONARY: Lungs are clear to auscultation without rales, rhonchi or wheezing. GASTROINTESTINAL: Abdomen soft and non-tender without palpable masses. Stoma appears to be healing well. MUSCULOSKELETAL: Neck supple with full ROM. No spine or CVA tenderness. SKIN: No rashes or petechiae. Few small bruises. LYMPH: bilateral cervical adenopathy of 0.5 - 1 cm., 1.5 x 0.5 cm node in left axilla, Few <1 cm inguinal nodes. NEUROLOGICAL: Alert and oriented to person, place and time. LABORATORY Recent Results (from the past 72 hour(s)) APTT Result Value Ref Range PTT 32 25 - 37 sec Prothrombin Time Result Value Ref Range PT 11.3 9.4 - 12.5 sec INR 1.0 Comprehensive metabolic panel (non-fasting) Result Value Ref Range Glucose Lvl 97 65 - 199 mg/dL BUN 27 (H) 10 - 20 mg/dL Creatinine 1.19 0.80 - 1.50 mg/dL Sodium 137 135 - 145 mmol/L Potassium 3.8 3.5 - 5.0 mmol/L Chloride 110 (H) 98 - 107 mmol/L CO2 17 (L) 22 - 31 mmol/L Anion Gap 10 5 - 15 mmol/L Calcium 9.2 8.5 - 10.5 mg/dL Total Protein 7.5 6.1 - 8.0 g/dL Albumin 3.8 3.2 - 5.2 g/dL AST 30 0 - 39 unit/L ALT 43 0 - 55 unit/L Alk Phos 174 (H) 40 - 130 unit/L Total Bilirubin <0.2 (L) 0.2 - 1.3 mg/dL Estimated GFR 66 >=60 mL/min/1.73 m?? Hemogram Result Value Ref Range WBC 1.8 (CRIT) 4.0 - 9.5 x10(3)/mcL RBC 2.58 (L) 4.58 - 5.54 x10(6)/mcL Hemoglobin 7.9 (L) 13.7 - 16.5 g/dL Hematocrit 23.1 (L) 40.5 - 48.5 % MCV 89.5 82.9 - 93.1 fL MCH 30.6 27.5 - 32.1 pg MCHC 34.2 32.0 - 35.7 g/dL Platelets 44 (L) 145 - 357 x10(3)/mcL RDWSD 50.3 (H) 36.0 - 45.0 fL RDWCV 15.4 (H) 11.4 - 13.8 % MPV 11.6 7.6 - 12.9 fL nRBC % Auto 0.0 % nRBC Abs Auto 0.000 0.000 - 0.000 x10(3)/mcL Antibody screen Result Value Ref Range Expires at 2359 on: 08/15/2021 ABORH Recheck Status Result Value Ref Range ABORH Type Recheck Completed RADIOLOGY - None ASSESSMENT & PLANS 1. Flt3+ AML --Herber achieved CR with 7&3 + midostauren induction therapy - now at day +47. --Will need to move to consolidation therapy soon but still needs to recover from prolonged hospitalstay including colectomy. 2. Allo HSCT --Because Herber is POS [...] to date and plans for moving forward. When Herber returns in 1 week for next f/u will arrange for him to also see Annika Geller RN, BMT Coordinator. 5. Summary of Plans --Counts improving on current regimen and tolerating well. No need for transfusions or fluids Today. --IT chemo today. --RTC 1 week for labs, providers, Infusion Room and next weekly IT Chemo --Herber to call any time if not feeling well or questions or concerns arise.. Parviz Modi MD Section of Hematology [facility] documented in this encounter Plan of Treatment Upcoming Encounters Date Type Specialty Care Team Description 02/18/2022 Infusion Hematology and Oncology 02/21/2022 Infusion Hematology and Oncology 02/24/2022 Appointment Hematology and Oncology 02/24/2022 Office Visit Hematology and Oncology Parviz Modi MD [facility] DR HEMATOLOGY/[place] [address] Miroslava Pelayo APRN [facility] DR HEMATOLOGY/[place] [address] 02/24/2022 Office Visit Wound Care 02/24/2022 Appointment Hematology and Oncology 02/26/2022 Office Visit Neurology Leni Bustamante MD [facility] DR NEUROLOGY DEPT. [place], [place] [address] (Wo rk) documented as of this encounter Visit Diagnoses Diagnosis Acute myeloid leukemia in relapse Acute myeloid leukemia, in relapse Anemia, unspecified type Thrombocytopenia Thrombocytopenia, unspecified H/O Clostridium difficile infection Personal history of other infectious and parasitic disease 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 status S/P partial resection of colon Other postprocedural status Stem cell transplant candidate documented in this encounter Additional Health Concerns Infection Onset Date Last Indicated Resolved Time C. difficile 05/25/2021 05/25/2021 08/20/2021 5:29 AM EST documented as of this encounter Care Teams Site Inspector Relationship Specialty Start Date End Date Beatriz Maurice PA PCP - General Family Medicine 05/06/21 [address] [place] [address] documented as of this encounter
--- OUTSIDE RECORDS SUMMARY | 2022-02-14 11:17 | XMS_ITS | Encounter Summary ---
:1960 Author Organization [facility] Address [facility] [address] [place] [address] Care Team Providers Name Role Phone Beatriz Maurice Primary Care Provider Encounter Details Date Type Department Care Team Description 08/14/2021 Orders Only Hematology and Oncology at [facility], Miroslava Spivey APRN [facility] Catie narvaez HEMATOLOGY/[place] [address] DEPT. [phone] [place], [place] [address] (Wo rk) Social History Tobacco [...] [facility] DR HEMATOLOGY/[place] [address] Miroslava Pelayo APRN [facility] HEMATOLOGY/[place] [address] 02/24/2022 Office Visit Wound Care 02/24/2022 Appointment Hematology and Oncology 02/26/2022 Office Visit Neurology Leni Bustamante MD [facility] NEUROLOGY DEPT. [place], [place] [address] (Wo rk) documented as of this encounter Visit Diagnoses Not on filedocumented in this encounter Additional Health Concerns Infection Onset Date Last Indicated Resolved Time C. difficile 05/25/2021 05/25/2021 08/20/2021 5:29 AM EST documented as of this encounter Care Teams Single End Sewer Relationship Specialty Start Date End Date Beatriz Maurice PA PCP - General Family Medicine 05/06/21 [address] [place] [address] documented as of this encounter
--- OUTSIDE RECORDS SUMMARY | 2022-02-14 11:17 | XMS_ITS | Encounter Summary ---
:1960 Author Organization [employer] Address [facility] [place] [address] Care Team Providers Name Role Phone Beatriz Maurice Primary Care Provider Encounter Details Date Type Department Care Team Description 08/19/2021 Orders Only Hematology and Oncology at [facility], Miroslava Spivey APRN [facility] Catie narvaez HEMATOLOGY/[place] [address] DEPT. [phone] [place], [place] [address] (Wo rk) Social History [...] Visit Hematology and Oncology Parviz Modi MD [facility] DR HEMATOLOGY/[place] [address] Miroslava Pelayo APRN [facility] HEMATOLOGY/[place] [address] 02/24/2022 Office Visit Wound Care 02/24/2022 Appointment Hematology and Oncology 02/26/2022 Office Visit Neurology Leni Bustamante MD [facility] NEUROLOGY DEPT. [place], [place] [address] (Wo rk) documented as of this encounter Visit Diagnoses Not on filedocumented in this encounter Additional Health Concerns Infection Onset Date Last Indicated Resolved Time C. difficile 05/25/2021 05/25/2021 08/20/2021 5:29 AM EST documented as of this encounter Care Teams Tong Setter Relationship Specialty Start Date End Date Beatriz Maurice PA PCP - General Family Medicine 05/06/21 [address] [place] [address] documented as of this encounter
--- OUTSIDE RECORDS SUMMARY | 2022-02-14 11:17 | XMS_ITS | Encounter Summary ---
:1960 Author Organization [facility] Address [facility] [place] [address] Care Team Providers Name Role Phone Beatriz Maurice Primary Care Provider Encounter Details Date Type Department Care Team Description 08/19/2021 Orders Only Radiology at [facility] Yolette Soalno, Acute myeloid leukemia [facility] HUMAN RESOURCES SPECIALIST not having achieved Drive [facility] [place] [address] DIAGNOSTC RADIOLOGY [phone] [place], [place] [address] (Wo rk) Social History Tobacco [...] [facility] DR HEMATOLOGY/[place] [address] Miroslava Pelayo APRN [facility] HEMATOLOGY/[place] [address] 02/24/2022 Office Visit Wound Care 02/24/2022 Appointment Hematology and Oncology 02/26/2022 Office Visit Neurology Leni Bustamante MD [facility] ER NEUROLOGY DEPT. [place], [place] [address] (Wo rk) documented as of this encounter Results Prothrombin Time (08/19/2021 8:54 AM EST) athologist Signature PT 10.8 9.4 - 12.5 [facility] LABORATORY INR 1.0 [facility] LABOR[facility] Comment: An INR <2.0 indicates [...] Organization Address City/State/[place] [address] (ABNORMAL) Platelet count (08/19/2021 8:54 AM EST) athologist Signature Platelets 15 145 - 357 [facility] (Critical) x10(3)/[facility] LABORATORY Comment: This result has been called to KYLE WEI by Татьяна Thornton on 08 19 2021 at 1008, and has been read back. Plat Immature % 4.6 0.0 - 7.4 % [facility] LABOR[facility] Comment: Limitation of the Immature Platelet Frac tion (IPF)-May be less reliable when the platelet count is less than 66h151/u L due to statistical imprecision. The IPF [...] in a decreased state of production. References: [employer] The Clinical Value of the Immature Platelet Fraction (IPF) in Cell Recovery Document Number [id number] 01/2011 [employer] The Role of the Imm ature Platelet Fraction (IPF) in the Differential Diagnosis of Thrombocytopen ia, Document [id number] V05 P05 Specimen Anatomical Collection Method Collection Time Receive d Time (Source) Location / / Volume Laterality Blood 08/19/2021 8:54 AM 9:12 EST AM EST Resulting Agency Comment Spec In Lab Yolette Solano APRN HEMATOLOGY ORDERABLES Performing Organization Address City/State/[place] [address] documented in this encounter Visit Diagnoses Diagnosis Acute myeloid leukemia not having achiev ed remission documented in this encounter Additional Health Concerns Infection Onset Date Last Indicated Resolved Time C. difficile 05/25/2021 05/25/2021 08/20/2021 5:29 AM EST documented as of this encounter Care Teams Warble Saw Operator Relationship Specialty Start Date End Date Beatriz Maurice PA PCP - General Family Medicine 05/06/21 [address] [place] [address] documented as of this encounter
--- OUTSIDE RECORDS SUMMARY | 2022-02-14 11:17 | XMS_ITS | Encounter Summary ---
:1960 Author Organization [facility] [place] [place] [address] Care Team Providers Name Role Phone Beatriz Maurice Primary Care Provider Reason for Visit Reason Onset Date Comments Other 08/05/2021 Mailed $500 grocery card and $20 gas card. Encounter Details Date Type Department Care Team Description 08/05/2021 Telephone Hematology and Nichelle Barnard, Other ( Mailed $500 Oncology at [facility] grocery card and $20 [facility] gas card. ) [place] [address] Social History Tobacco Use Types Packs/Day [...] Telephone Encounter - Nichelle Barnard MSW - 08/05/2021 11:03 AM EST As Herber is still inpatient, [facility] mailed a $500 [employer] card ([employer]) and $20 gascard to him at his home address. documented in this encounter Plan of Treatment Upcoming Encounters Date Type Specialty Care Team Description 02/18/2022 Infusion Hematology and Oncology 02/21/2022 Infusion Hematology and Oncology 02/24/2022 Appointment Hematology and Oncology 02/24/2022 Office Visit Hematology and Oncology Parviz Modi MD [facility] DR HEMATOLOGY/[place] [address] Miroslava Pelayo APRN [facility] DR HEMATOLOGY/[place] [address] 02/24/2022 Office Visit Wound Care 02/24/2022 Appointment Hematology and Oncology 02/26/2022 Office Visit Neurology Leni Bustamante MD [facility] DR NEUROLOGY DEPT. [place], [place] [address] (Wo rk) documented as of this encounter Visit Diagnoses Not on filedocumented in this encounter Additional Health Concerns Infection Onset Date Last Indicated Resolved Time C. difficile 05/25/2021 05/25/2021 08/20/2021 5:29 AM EST documented as of this encounter Care Teams Asphalt Spreader Relationship Specialty Start Date End Date Beatriz Maurice PA PCP - General Family Medicine 05/06/21 [address] [place] [address] documented as of this encounter
--- OUTSIDE RECORDS SUMMARY | 2022-02-14 11:17 | XMS_ITS | Encounter Summary ---
:1960 Author Organization [facility] [place] [address] Care Team Providers Name Role Phone Josafat Arunafranki Benjamín DE LA FUENTE Primary Care Provider Reason for Visit Reason Comments Other Xospata PA Encounter Details Date Type Department Care Team Description 08/07/2021 Specialty Pharmacy Pharmacy at [facility] Jerri Joya (Xospata PA) [facility] [place] [id number] Social History Tobacco Use Types Packs/Day Years [...] of this encounter Progress Notes Violeta Joya [facility] - 08/07/2021 3:02 PM EST [facility], Medication Prior Authorization Submission pharmacy had not been able to complete the initial PA since insurance mandated it be filled by [facility]. [facility] had not initiated the PA process until today with , however, there was already a denied PA on file with the insurance. Clinic team requested that Specialty assist with the completion of this PA for Xospata for [facility] at this time on the inpatient provider's behalf. Clinic documents were sent to the [facility] Clinical department for review and hopeful approval through insurance.Status of the PA can be determined by calling [phone], reference # [id number] Patient: Herber Iverson Jr. Patient : 1960 Patient Address: [address] [address] (home) Medication Name: XOSPATA ORAL Medication ID: Sent Via: Ref/Case/PA#: [id number] Medication Strength Frequency Requested: Xospata 120mg daily Qty/Day Supply: New Start: New to Pharmacy Diagnosis & ICD-10 Code: C95.00 Patient Notified: Yes Submission Notes: None Violeta Joya RPH 08/07/21 3:07 PM Violeta Joya RPH - 08/07/2021 3:02 PM EST Voltaire called to let me know today @ ~ noon that the PA had been approved. I called [facility] @ 1815, but they are not able to process the claim yet. Provided the insurance number and reference # [facility] is to call the insurance as well. Everyone is aware that Herber needs this medication post haste. Violeta Joya RPH - 08/07/2021 3:02 PM EST PA was approved 08/15/21 @ 1200 - notified patient and [facility] documented in this encounter Plan of Treatment Upcoming Encounters Date Type Specialty Care Team Description 02/18/2022 Infusion Hematology and Oncology 02/21/2022 Infusion Hematology and Oncology 02/24/2022 Appointment Hematology and Oncology 02/24/2022 Office Visit Hematology and Oncology Parviz Modi MD [facility] DR HEMATOLOGY/[place] [address] Miroslava Pelayo APRN [facility] HEMATOLOGY/[place] [address] 02/24/2022 Office Visit Wound Care 02/24/2022 Appointment Hematology and Oncology 02/26/2022 Office Visit Neurology Leni Bustamante MD [facility] NEUROLOGY DEPT. [place], [place] [address] (Wo rk) documented as of this encounter Visit Diagnoses Not on filedocumented in this encounter Additional Health Concerns Infection Onset Date Last Indicated Resolved Time C. difficile 05/25/2021 05/25/2021 08/20/2021 5:29 AM EST documented as of this encounter Care Teams Rubber Tubing Backer Relationship Specialty Start Date End Date Beatriz Maurice PA PCP - General Family Medicine 05/06/21 [address] [place] [address] documented as of this encounter
--- OUTSIDE RECORDS SUMMARY | 2022-02-14 11:17 | XMS_ITS | Encounter Summary ---
:1960 Author Organization [facility] [place] [address] Care Team Providers Name Role Phone Beatriz Maurice Primary Care Provider Reason for Visit Reason Onset Date Comments Medication Refill 07/31/2021 Medication Refill 08/01/2021 Encounter Details Date Type Department Care Team Description 07/31/2021 Refill Hematology and Oncol ogy at [facility] [place] [address] Social History Tobacco Use Types Packs/Day [...] Telephone Encounter - Anahi Winters RN - 08/01/2021 1:21 PM EST Addendum 08/01: [facility] referral Confirmation sent by [facility] completed by Dr. Azar and faxedback, along with Med list, to [facility] by this RN at [phone]. Fax confirmation received Telephone Encounter - Anahi Winters RN - 07/31/2021 1:14 PM EST Oral Chemotherapy Check Note 07/31/2021 Herber Iverson Jr., 1960 Prescriptions for oral chemotherapy were reviewed as follows: Oral Chemotherapy Order Venetoclax: Order details: ?? Dose: 200 mg daily( Dose modification: reduced for interaction with Fluconazole) ?? Route: PO ?? Quantity to be dispensed #: 60 ?? Number of refills: 12 ?? Instructions: Take 2 tablets (200 mg) by mouth daily. Take with food and a large glass of water. Call clinic before starting medication. ?? Cycle number and length: N/A, new start with Xospata ?? Start date: Started while inpatient 07/31 Plan of care compared to information in the medical record, including note from provider on 07/31. The prescription was found To be complete and accurate. It was e-prescribed to [id number] pharmacy. documented in this encounter Plan of Treatment Upcoming Encounters Date Type Specialty Care Team Description 02/18/2022 Infusion Hematology and Oncology 02/21/2022 Infusion Hematology and Oncology 02/24/2022 Appointment Hematology and Oncology 02/24/2022 Office Visit Hematology and Oncology Parviz Modi MD [facility] DR HEMATOLOGY/[place] [address] Miroslava Pelayo APRN [facility] DR HEMATOLOGY/[place] [address] 02/24/2022 Office Visit Wound Care 02/24/2022 Appointment Hematology and Oncology 02/26/2022 Office Visit Neurology Leni Bustamante MD [facility] ER NEUROLOGY DEPT. [place], [place] [address] (Wo rk) documented as of this encounter Visit Diagnoses Not on filedocumented in this encounter Additional Health Concerns Infection Onset Date Last Indicated Resolved Time C. difficile 05/25/2021 05/25/2021 08/20/2021 5:29 AM EST documented as of this encounter Care Teams Cloth Shrinking Machine Operator Relationship Specialty Start Date End Date Beatriz Maurice PA PCP - General Family Medicine 05/06/21 [address] [place] [address] documented as of this encounter
--- OUTSIDE RECORDS SUMMARY | 2022-02-14 11:17 | XMS_ITS | Encounter Summary ---
:1960 [place] [address] Care Team Providers Name Role Phone Beatriz Maurice Primary Care Provider Encounter Details Date Type Department Care Team Description 08/13/2021 Telephone Wound Care at [facility] [place] [address] Social History Tobacco Use Types Packs/Day [...] this encounter Miscellaneous Notes Telephone Encounter - Serenity Frey RN - 08/13/2021 1:51 PM EST interventionist note: [facility] [place] [facility] Per her and patient's request, I faxed her a list of the supplies that patient needs for his ileostomy. See list below: 1 Box per month of Generic No-sting skin barrier wipe 1 Bottle of Adapt Stoma powder #7906 every other month 1 Sensura [place] Belt #4237 per month 2 boxes of Adapt barrier rings #7805 per month 2 boxes of Coloplast Brava Elastic barrier strips per month 2 boxes of Coloplast Sensura debora Soft Convex cut to fit pouches #04323 per month documented in this encounter Plan of Treatment Upcoming Encounters Date Type Specialty Care Team Description 02/18/2022 Infusion Hematology and Oncology 02/21/2022 Infusion Hematology and Oncology 02/24/2022 Appointment Hematology and Oncology 02/24/2022 Office Visit Hematology and Oncology Parviz Modi MD [facility] DR HEMATOLOGY/[place] [address] Miroslava Pelayo APRN [facility] DR HEMATOLOGY/[place] [address] 02/24/2022 Office Visit Wound Care 02/24/2022 Appointment Hematology and Oncology 02/26/2022 Office Visit Neurology Leni Bustamante MD [facility] [address] NEUROLOGY DEPT. [place], [place] [address] (Wo rk) documented as of this encounter Visit Diagnoses Not on filedocumented in this encounter Additional Health Concerns Infection Onset Date Last Indicated Resolved Time C. difficile 05/25/2021 05/25/2021 08/20/2021 5:29 AM EST documented as of this encounter Care Teams Manager Digital Ad Operations Relationship Specialty Start Date End Date Beatriz Maurice PA PCP - General Family Medicine 05/06/21 [address] [place] [address] documented as of this encounter
--- OUTSIDE RECORDS SUMMARY | 2022-02-14 11:17 | XMS_ITS | Encounter Summary ---
:1960 Author Organization [facility] Address [address] [place] [address] Care Team Providers Name Role Phone Beatriz Maurice Primary Care Provider Encounter Details Date Type Department Care Team Description 08/14/2021 Orders Only Hematology and Oncology at [facility], Miroslava Spivey APRN [facility] Catie narvaez HEMATOLOGY/[place] [address] DEPT. [phone] [place], [place] [address] (Wo rk) Social History Tobacco [...] MD [facility] DR HEMATOLOGY/[place] [address] Miroslava Pelayo APRN [facility] HEMATOLOGY/[place] [address] 02/24/2022 Office Visit Wound Care 02/24/2022 Appointment Hematology and Oncology 02/26/2022 Office Visit Neurology Leni Bustamante MD [facility] NEUROLOGY DEPT. [place], [place] [address] (Wo rk) documented as of this encounter Visit Diagnoses Not on filedocumented in this encounter Additional Health Concerns Infection Onset Date Last Indicated Resolved Time C. difficile 05/25/2021 05/25/2021 08/20/2021 5:29 AM EST documented as of this encounter Care Teams Pulping Machine Operator Relationship Specialty Start Date End Date Beatriz Maurice PA PCP - General Family Medicine 05/06/21 [address] [place] [address] documented as of this encounter
--- OUTSIDE RECORDS SUMMARY | 2022-02-14 11:17 | XMS_ITS | Encounter Summary ---
:1960 Author Organization [facility] [place] [address] Care Team Providers Name Role Phone Beatriz Maurice Primary Care Provider Encounter Details Date Type Department Care Team Description 08/06/2021 [place] [address] Social History Tobacco Use Types Packs/Day [...] Sig Dispensed Refills Start Date End Date oxyCODONE Take 1 tablet by mouth 10 tablet 0 07/05/2021 (Roxicodone) 5 mg every 4 hours as needed Tablet for Pain. LORazepam (Ativan) 1 Take 1 tablet after 1 tablet 0 202008/08/2021 mg Tablet arriving at [facility] and approximately 30 minutes prior to bone marrow biopsy procedure. Do not take while driving. flecainide (TAMBOCOR) Take 1 tablet by mouth 60 tablet 3 11/18/2021 50 mg Tablet 2 times daily. loperamide (Imodium Take 1 capsule by mouth 30 tablet 0 10/202008/08/2021 A-D) 2 mg Capsule 2 times daily as needed for Diarrhea (Take once daily or twice daily based on the consistency of your stool.). metoprolol tartrate Take 0.5 tablets by 60 tablet 0 021 08/08/2021 (Lopressor) 25 mg mouth every 6 hours. Tablet famotidine (Pepcid) Take 2 tablets by mouth 30 tablet 12 10/202011/22/2021 20 mg Tablet daily. enoxaparin (Lovenox) Inject 1 mL 100 mL 0 08/08/2021 100 mg/mL Syringe subcutaneously daily. enoxaparin (Lovenox) Inject 1 mL 30 mL [...] 07/1808/28/2021 400 mg Tablet 2 times daily. enoxaparin (Lovenox) Inject 0.5 mLs 30 mL 0 08/07/2021 08/07/2021 60 mg/0.6 mL Syringe subcutaneously 2 times daily for 30 days. Don't fill. Please call [phone] with pricing. fluconazole Take 2 tablets by mouth 60 [...] times a week. DS) 800-160 mg Tablet enoxaparin (Lovenox) Inject 0.4 mLs 24 mL 0 08/07/2021 08/08/2021 40 mg/0.4 mL Syringe subcutaneously 2 times daily for 30 days. venetoclax Take 2 [...] Visit Hematology and Oncology Parviz Modi MD [facility] DR HEMATOLOGY/[place] [address] Miroslava Pelayo APRN [facility] DR HEMATOLOGY/[place] [address] 02/24/2022 Office Visit Wound Care 02/24/2022 Appointment Hematology and Oncology 02/26/2022 Office Visit Neurology Leni Bustamante MD [facility] NEUROLOGY DEPT. [place], [place] [address] (Wo rk) documented as of this encounter Visit Diagnoses Not on filedocumented in this encounter Additional Health Concerns Infection Onset Date Last Indicated Resolved Time C. difficile 05/25/2021 05/25/2021 08/20/2021 5:29 AM EST documented as of this encounter Care Teams Detective [place] Relationship Specialty Start Date End Date Beatriz Maurice PA PCP - General Family Medicine 05/06/21 [address] [place] [address] documented as of this encounter
--- OUTSIDE RECORDS SUMMARY | 2022-02-14 11:17 | XMS_ITS | Encounter Summary ---
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 Ostomy Supplies [facility] Dispense 2 boxes 40 each 2 (20/box) of Brava Elastic Barrier strips #[id number] per month. Ostomy Supplies [facility] Dispense 1 box (50/box) 50 each of a generic no-sting skin barrier wipe per month. Colostomy Belt Dispense 1 Sensura Flako 1 each 2 12/13/2021 (Ostomy Belt Medium) Belt #4237 per month. [facility] gilteritinib Take 3 tablets (120 mg) 21 [...] [facility] DR HEMATOLOGY/[place] [address] Miroslava Pelayo APRN [facility] HEMATOLOGY/[place] [address] 02/24/2022 Office Visit Wound Care 02/24/2022 Appointment Hematology and Oncology 02/26/2022 Office Visit Neurology Leni Bustamante MD [facility] NEUROLOGY DEPT. [place], [place] [address] (Wo rk) Scheduled Orders Name Type Priority Associated Diagnoses Order S chedule CBC (with Diff) Lab Routine Acute myeloid leukemia in 1 Occurrences starting remission 08/12/2021 unti l 08/12/2021 CBC (with Diff) Lab STAT Acute myeloid leukemia no t 1 Occurrences starting having achieved remission 08/12/2021 until 08/12/2021 Anemia, unspecif ied type Thrombocytopenia Leukocytosis, unspecified type H/O Clostridium difficile infection Colostomy in lalo ce S/P partial resection of colon documented as of this encounter Procedures Procedure Name Priority Date/Time Associated Comments Diagnosis TYPE AND SCREEN STAT 08/12/2021 9:23 AM Result s for this VALIDITY EST procedure are i n the results section. ABORH RECHECK STATUS STAT 08/12/2021 9:23 AM R esults for this EST procedure are i n the results section. SCAN, PERIPHERAL BLOOD Routine 08/12/2021 9:23 AM Results for this EST procedure are i n the results section. HEMOGRAM Routine 08/12/2021 9:23 AM Acute myeloid Results for this EST leukemia in relapse procedur e are in the results section. DIFFERENTIAL, Routine 08/12/2021 9:23 AM Acute myeloid Results for this AUTOMATED EST leukemia in relapse procedur e are in the results section. ABO/RH TYPING STAT 08/12/2021 9:23 AM Acute myeloid Results for this EST leukemia not having procedur e are in achieved remissi on the results Anemia, unspecified section. 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 ce S/P partial resection of colon HC VENIPUNCTURE Routine 08/12/2021 9:23 AM Acute myeloid Resul ts for this EST leukemia in relapse procedur e are in the results section. HC PROTHROMBIN TIME Routine 08/12/2021 9:23 AM Acute myeloid R esults for this EST leukemia in relapse procedur e are in the results section. HC CBC,PLT & AUTO DIFF Routine 08/12/2021 9:23 AM Acute myeloi d EST leukemia in relapse ANTIBODY SCREEN STAT 08/12/2021 9:23 AM Acute myeloid Resul ts for this EST leukemia not having procedur e are in achieved remissi on the results Anemia, unspecified section. 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 ce S/P partial resection of colon HC ABO-MICROTITER STAT 08/12/2021 9:23 AM Acute myeloid EST leukemia not having achieved remissi on Anemia, unspecified 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 ce S/P partial resection of colon COMPREHENSIVE Routine 08/12/2021 9:23 AM Acute myeloid Results for this METABOLIC PANEL EST leukemia not having proce dure are in (NON-FASTING) achieved remissi on the results Anemia, unspecified section. 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 ce S/P partial resection of colon documented in this encounter Results Type and Screen Validity (08/12/2021 9:23 AM EST) [facility] Method Time Signature T&S only valid [facility] LABORATORY Comment: This Type and Screen result is only valid at the [facility] Hospital Specimen Anatomical Collection Method Collection Time Receive d Time (Source) Location / / Volume Laterality Blood 08/12/2021 9:23 AM 9:34 EST AM EST Resulting Agency Comment Spec In Lab Parviz Modi MD BLOOD BANK ORDERABLES Performing Organization Address City/[facility]/ZIP [place] [address] Scan, Peripheral Blood (08/12/2021 9:23 AM EST) [facility] Method Time Signature Plat Estimate Decreased [facility] LABORATORY RBC Morphology Abnormal [facility] LABORATORY Hypochromia Slight [facility] LABORATORY Ovalocytes 1-5 /HPF [facility] LABORATORY Specimen Anatomical Collection Method Collection Time Receive d Time (Source) Location / / Volume Laterality Blood 08/12/2021 9:23 AM 9:27 EST AM EST Resulting Agency Comment Spec In Lab Maldonado Rivera MD HEMATOLOGY ORDERABLES Performing Organization Address City/State/ZIP Code Phon [place] [address] ABORH Recheck Status (08/12/2021 9:23 AM EST) [facility] Method Time Signature ABORH Type Completed [facility] LABORATORY Specimen Anatomical Collection Method Collection Time Receive d Time (Source) Location / / Volume Laterality Blood 08/12/2021 9:23 AM 9:34 EST AM EST Resulting Agency Comment Spec In Lab Parviz Modi MD BLOOD BANK ORDERABLES Performing Organization Address City/State/ZIP [place] [address] Antibody screen (08/12/2021 9:23 AM EST) [facility] Signature Ab Screen Negative [facility] LABORATORY Expires at 08/15/2021 [facility] [id number] on: [facility] LABORATORY Specimen Anatomical Collection Method Collection Time Receive d Time (Source) Location / / Volume Laterality Blood 08/12/2021 9:23 AM 9:34 EST AM EST Resulting Agency Comment Spec In Lab Parviz Modi MD BLOOD BANK ORDERABLES Performing Organization Address City/[facility]/ZIP Code [place] [address] ABO/Rh Typing (08/12/2021 9:23 AM EST) P athologist Signature ABORh Type O Pos [facility] LABORATORY Specimen Anatomical Collection Method Collection Time Receive d Time (Source) Location / / Volume Laterality Blood 08/12/2021 9:23 AM 9:34 EST AM EST Resulting Agency Comment Spec In Lab Parviz Modi MD BLOOD BANK ORDERABLES Performing Organization Address City/[facility]/ZIP [place] [address] (ABNORMAL) Differential, Automated (08/12/2021 9:23 AM EST) [facility] Method Time Signature Neutrophils % 20.5 % [facility] LABORATORY Neutr Abs (ANC) 0.38 1.70 - [facility] (Critical 6.10 MEMORIAL ) x10(3)/[facility] L LABORATORY Comment: This result has been called to KYLE WEI by Татьяна Thornton on 08 12 2021 at 1048, and has been read back. Lymphocytes % 35.7 % [facility] LABORATORY Lymphocytes Abs 0.7 (L) 0.9 - 3.2 x10(3)/[facility] LABORATORY Monocytes % 43.8 % [facility] LABORATORY Monocyte Abs 0.8 0.3 - 0.9 x10(3)/[facility] LABORATORY Eosinophils % 0.0 % [facility] LABORATORY Eosinophils Abs 0.0 0.0 - 0.4 x10(3)/[facility] LABORATORY Basophils % 0.0 % [facility] LABORATORY Basophils Abs 0.0 0.0 - 0.1 x10(3)/[facility] LABORATORY Immature Gran % 0.00 % [facility] LABORATORY Comment: Immature granulocytes(IG's)percentage an d absolute count will include metamyelocytes, myelocytes, and promyelo cytes. Blood smears from CBCs yielding IG's will be scanned manually for concor dance. If this scan disagrees with the automated IG or if promyelocytes are not ed, a manual differential will be performed. Zara Gran Abs 0.00 0.00 - 0.04 x10(3)/[facility] LABORATORY Specimen Anatomical Collection Method Collection Time Receive d Time (Source) Location / / Volume Laterality Blood 08/12/2021 9:23 AM 9:27 EST AM EST Resulting Agency Comment Spec In Lab Maldonado Rivera MD HEMATOLOGY ORDERABLES Performing Organization Address City/State/Z[place] [address] (ABNORMAL) Hemogram (08/12/2021 9:23 AM EST) [facility] Method Time Signature WBC 1.8 4.0 - 9.5 [facility] (Critical) x10(3)/[facility] LABORATORY RBC 2.58 (L) 4.58 - [facility] 5.54 [facility] x10(6)/[facility] LABORATORY Hemoglobin 7.9 (L) 13.7 - [facility] 16.[facility] g/dL [facility] Hematocrit 23.1 (L) 40.5 - [facility] 48.5 % [facility] MCV 89.5 82.9 - [facility] 93.1 [facility] LABORATORY MCH 30.6 27.5 - [facility] 32.1 pg [facility] LAB[facility]AT[facility] MCHC 34.2 32.0 - [facility] 35.7 g/dL [facility] LABOR[facility] Platelets 44 (L) 145 - 357 [facility] x10(3)/[facility] LABORATORY RDWSD 50.3 (H) 36.0 - [facility] 45.0 [facility] LABORATORY RDWCV 15.4 (H) 11.4 - [facility] 13.8 % [facility] LABORATORY MPV 11.6 7.6 - 12.9 [facility] LABORATORY nRBC % Auto 0.0 % [facility] LABORATORY nRBC Abs Auto 0.000 0.000 - [facility] 0.000 [facility] x10(3)/[facility] LABORATORY Specimen Anatomical Collection Method Collection Time Receive d Time (Source) Location / / Volume Laterality Blood 08/12/2021 9:23 AM 9:27 EST AM EST Resulting Agency Comment Spec In Lab Maldonado Rivera MD HEMATOLOGY ORDERABLES Performing Organization Address City/State/Z[place] [address] (ABNORMAL) Comprehensive metabolic panel (non-fasting) (08/12/2021 9:23 AM EST) P athologist Signature Glucose Lvl 97 65 - 199 [facility] mg/dL [facility] LABORATORY Comment: Diabetes: >=200 mg/dL plus symp toms BUN 27 (H) 10 - 20 mg/dL [facility] LABORATORY Creatinine 1.19 0.80 - 1.50 mg/dL [facility] LABORATORY Sodium 137 135 - 145 mmol/L [facility] LABORATORY Potassium 3.8 3.5 - 5.0 mmol/L [facility] LABORATORY Comment: Please note: ??Patients with WBC >100,00 0 may have falsely elevated Potassium levels. ??For accurate Potassium quantif ication in these patients send serum separator tube (gold top) for subsequent determinations. ??Contact the Clinical Chemistry Laboratory if there are any qu estions. Chloride 110 (H) 98 - 107 mmol/L [facility] LABORATORY CO2 17 (L) 22 - 31 mmol/L [facility] LABORATORY Anion Gap 10 5 - 15 mmol/L [facility] LABORATORY Calcium 9.2 8.5 - 10.5 mg/dL [facility] LABORATORY Total Protein 7.5 6.1 - 8.0 g/dL [facility] LABORATORY Albumin 3.8 3.2 - 5.2 g/dL [facility] LABORATORY AST 30 0 - 39 unit/L [facility] LABORATORY ALT 43 0 - 55 unit/L [facility] LABORATORY Alk Phos 174 (H) 40 - 130 unit/L [facility] LABORATORY Total Bilirubin <0.2 (L) 0.2 - 1.3 mg/dL [facility] LABORATORY Estimated GFR 66 >=60 mL/min/1.73 m?? [facility] LABORATORY Comment: This patient? s estimated glomerular filtration rate (eGFR) is between 66 mL/min/1.73 m2 (patients with less muscl e mass per kg body weight) and 76 mL/min/1.73 m2 (patients with more muscl e [...] (Source) Location / / Volume Laterality Blood 08/12/2021 9:23 AM 9:27 EST AM EST Resulting Agency Comment Spec In Lab Parviz Modi MD CHEMISTRY ORDERABLES Performing Organization Address City/[facility]/ZIP Code [place] [address] Prothrombin Time (08/12/2021 9:23 AM EST) P athologist Signature PT 11.3 9.4 - 12.5 [facility] LABORATORY INR 1.0 [facility] LABORATORY Comment: An INR <2.0 [...] (Source) Location / / Volume Laterality Blood 08/12/2021 9:23 AM 9:27 EST AM EST Resulting Agency Comment Spec In Lab Miguel Angel Archer MD HEMATOLOGY ORDERABLES Performing Organization Address City/[facility]/ZIP Code [place] [address] APTT (08/12/2021 9:23 AM EST) P athologist Signature PTT 32 25 - 37 sec [facility] LABORATORY Comment: The PTT is NOT appropriate for heparin m onitoring. Use the Anti-Xa level for heparin monitoring (HEP UFH) or LMWH mon itoring (HEP LMW). A PTT less than 37 seconds generally indicates adequate hem ostasis. 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
--- OUTSIDE RECORDS SUMMARY | 2022-02-14 11:17 | XMS_ITS | Encounter Summary ---
:1960 Author Organization [facility] Address [facility] [place] [address] Care Team Providers Name Role Phone Beatriz Maurice Primary Care Provider Encounter Details Date Type Department Care Team Description 08/12/2021 Hospital Encounter XRay at [facility] Azar, Acute myeloid [address] [place] [address] Kj Blankenship MD leukemia not having [place], [place] [facility] [place] [phone] Center [phone] [place] [address] Social History Tobacco Use Types Packs/Day Years [...] every other month. Ostomy Supplies [facility] Dispense 2 boxes 20 each 2 (10/box) of [employer] [place] Soft Convex One-piece Pouch #[id number] per month. Ostomy Supplies [facility] Dispense 2 boxes 40 each 2 (20/box) of Brava Elastic Barrier strips #[id number] per month. Ostomy Supplies [facility] Dispense 1 box (50/box) 50 each of a generic no-sting skin barrier wipe per month. Colostomy Belt Dispense 1 Sensura Flako 1 each 2 12/13/2021 (Ostomy Belt Medium) Belt #[id number] per month. [facility] gilteritinib Take 3 tablets (120 mg) 21 [...] [facility] [address] Miroslava Pelayo APRN [facility] HEMATOLOGY/[place] [address] 02/24/2022 Office Visit Wound Care 02/24/2022 Appointment Hematology and Oncology 02/26/2022 Office Visit Neurology Leni Bustamante MD [facility] NEUROLOGY DEPT. [place], [place] [address] (Wo rk) documented as of this encounter Procedures Procedure Name Priority Date/Time Associated Comments Diagnosis XR FLUORO GUIDED Routine 08/12/2021 1:59 PM Acute myeloid Resu lts for this LUMBAR PUNCTURE FOR EST leukemia not having p rocedure are in IT CHEMOTHERAPY achieved remission the re sults section. FLUID REVIEW REPORT Routine 08/12/2021 1:40 PM Re sults for this EST procedure are i n the results section. 4 TOTAL TUBES SENT Routine 08/12/2021 1:40 PM CSF EST 3 TOTAL TUBES SENT Routine 08/12/2021 1:40 PM CSF EST 2 TOTAL TUBES SENT Routine 08/12/2021 1:40 PM CSF EST HC CSF CELL CT W/ Routine 08/12/2021 1:40 PM DIFFERENTIAL EST CSF CELL COUNT Routine 08/12/2021 1:40 PM Results for this EST procedure are i n the results section. CSF DESC 4 Routine 08/12/2021 1:40 PM Results f or this EST procedure are i n the results section. CSF DESC 3 Routine 08/12/2021 1:40 PM Results f or this EST procedure are i n the results section. CSF DESC 2 Routine 08/12/2021 1:40 PM Results f or this EST procedure are i n the results section. CSF DESC 1 Routine 08/12/2021 1:40 PM Results f or this EST procedure are i n the results section. LEUKEMIA LYMPHOMA Routine 08/12/2021 1:40 PM Resu lts for this SCREEN (FORMERLY EST procedure a re in MALIGNANT CELL the results SCREEN) section. HC RN IV THERAPY CULTURE Routine 08/12/2021 1:40 PM Results for this EST procedure are i n the results section. HC PROTEIN, CSF Routine 08/12/2021 1:40 PM Result s for this EST procedure are i n the results section. HC GLUCOSE, CSF Routine 08/12/2021 1:40 PM Result s for this EST procedure are i n [...] who have questions please contact the health companion caregiver that requested your imaging first. ? Narrative 08/12/2021 3:58 PM EST EXAMINATION: XR FLUORO GUIDED LUMBAR PUNCTURE FOR IT CHEMOTHERAPY CLINICAL HISTORY: AML w/ RN IV THERAPY involvement COMPARISON: Lumbar puncture 08/05/2021 FINDINGS: Written [...] of fluid was removed and sent to [facility] as requested by the ordering provider [...] FOR IT CHEMOTHERAPY CLINICAL HISTORY: AML w/ RN IV THERAPY involvement COMPARISON: Lumbar puncture 08/05/2021 FINDINGS: Written [...] of fluid was removed and sent to [facility] as requested by the ordering provider in the proper tubes. Intrathecal chemotherapy was then admini stered by the hematology/oncology service per their protocol. Please see t ir separately dictated note for additional information. Fluoroscopic [...] ho have questions please contact the health companion caregiver that requested your imaging first. Kj Azar MD IMG FLUORO ORDERABLES Fluid Review Report (08/12/2021 1:40 PM EST) Component Value Ref Test Analysis Performed At [facility] Range Method Time Signature Fluid Review [id number] ? Location: [address] [place] [address] The signing pathologist has (i) examined the relevant preparation(s) for the [facility]ORIAL specimen(s) and (ii) rendered or confirmed the diagnosis(es) . HOSPITAL LABORATORY . ? Fl uid Review DIAGNOSIS CEREBROSPINAL FLUID: No overtly malignant cells are seen in the cytocentrifuge pr eparation. Electronically signed by: ?Colby Coyne MD Verified: ??08/12/2021 16:55 ??Hematopathologist Performed at: ??-[facility] Dept. of Pathology, [place], [place] ADDITIONAL STUDIES WBC/uL: 18 RBC/uL: 8 200 cells counted on cytocentrifuge preparation. Small mature lymphocytes and reactive macrophages seen. CLINICAL INFORMATION Specimen: ? CSF, LLS Clinical Diagnosis: ? 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 Evaluate CSF Specimen (Source) Anatomical Collection Method Collection Time Re ceived Time Location / / Volume Laterality 08/12/2021 1:40 PM EST Samer Dillon DO PATHOLOGY/CYTOLOGY ORDERABLE S Performing Organization Address City/[facility]/ZIP [place] [address] CSF DESC 4 (08/12/2021 1:40 PM EST) [facility] gist Method Time Signature Tube Num CSF 4 [facility] #4 [facility] Color CSF #4 Colorless Colorless [facility] Appear CSF #4 Clear Clear [facility] Tot Vol CSF #4 2.3 mL [facility] Specimen (Source) Anatomical Collection Method Collection Time Re ceived Time Location / / Volume Laterality Cerebrospinal Fluid 08/12/2021 1:40 08/12 PM EST 2:19 PM EST Resulting Agency Comment Spec In Lab Samer Dillon DO BODY FLUIDS AND STOOLS ORDER BRINA Performing Organization Address City/State/[place] [address] CSF DESC 3 (08/12/2021 1:40 PM EST) [facility] Method Time Signature Tube Num CSF 3 [facility] Color CSF #3 Colorless Colorless [facility] Appear CSF #3 Clear Clear [facility] Tot Vol CSF #3 2.2 mL [facility] Specimen (Source) Anatomical Collection Method Collection Time Re ceived Time Location / / Volume Laterality Cerebrospinal Fluid 08/12/2021 1:40 08/12 PM EST 2:19 PM EST Resulting Agency Comment Spec In Lab Samer Dillon DO BODY FLUIDS AND STOOLS ORDER BRINA Performing Organization Address City/State/[place] [address] CSF DESC 2 (08/12/2021 1:40 PM EST) [facility] Method Time Signature Tube Num CSF 2 [facility] Color CSF #2 Colorless Colorless [facility] Appear CSF #2 Clear Clear [facility] Tot Vol CSF #2 2.0 mL [facility] Specimen (Source) Anatomical Collection Method Collection Time Re ceived Time Location / / Volume Laterality Cerebrospinal Fluid 08/12/2021 1:40 08/12 PM EST 2:19 PM EST Resulting Agency Comment Spec In Lab Samer Dillon DO BODY FLUIDS AND STOOLS ORDER BRINA Performing Organization Address City/State/ZIP [place] [address] (ABNORMAL) CSF Cell Count (08/12/2021 1:40 PM EST) P athologist Signature Tube # Ct CSF 4 [facility] Nucleated CSF 18 (H) 0 - 5 /mcl [facility] Comment: If Nucleated CSF CT [...] correlated with clinical condition. RBC CSF CT 8 /mcl [facility] Lymphocyte CSF 84 % [facility] Macrophage CSF 16 % [facility] Tot Diff Ct CSF 200 Cells [facility] Specimen (Source) Anatomical Collection Method Collection Time Re ceived Time Location / / Volume Laterality Cerebrospinal Fluid 08/12/2021 1:40 08/12 PM EST 2:19 PM EST Resulting Agency Comment Spec In Lab Samer [facility] DO BODY FLUIDS AND STOOLS ORDER BRINA Performing Organization Address City/[facility]/ZIP Code Phon e Number [address] CSF DESC 1 (08/12/2021 1:40 PM EST) Patholo gist Method Time Signature Tube Num CSF [address] LABORATORY Color CSF #1 Colorless Colorless [facility] Appear CSF #1 Clear Clear [facility] Tot Vol CSF #1 2.8 mL [facility] Specimen (Source) Anatomical Collection Method Collection Time Re ceived Time Location / / Volume Laterality Cerebrospinal Fluid 08/12/2021 1:40 08/12 PM EST 2:19 PM EST Resulting Agency Comment Spec In Lab Samer Dillon DO BODY FLUIDS AND STOOLS ORDER BRINA Performing Organization Address City/[facility]/ZIP Code Phon e Number [address] Leukemia Lymphoma Screen Cerebrospinal Fluid (08/12/2021 1:40 PM EST) Patholo gist Method Time Signature LLS BF Type CSF [facility] Leukemia See Comment [facility] Lymphoma [facility] LABORATORY Comment: See Fluid Review Report [id number] Hematopathology Reports. Specimen (Source) Anatomical Collection Method Collection Time Re ceived Time Location / / Volume Laterality Cerebrospinal Fluid 08/12/2021 1:40 08/12 PM EST 2:19 PM EST Resulting Agency Comment Spec In Lab Parviz Modi MD BODY FLUIDS AND STOOLS ORDER BRINA Performing Organization Address [facility]/ZIP Code Phon e Number [address] (ABNORMAL) Protein Level CSF (08/12/2021 1:40 PM EST) P athologist Signature T Protein, CSF 86 (H) 15 - 45 [facility] mg/dL [facility] Xanthochromia Neg [facility] Specimen (Source) Anatomical Collection Method Collection Time Re ceived Time Location / / Volume Laterality Cerebrospinal Fluid 08/12/2021 1:40 08/12 PM EST 2:19 PM EST Resulting Agency Comment Spec In Lab Parviz Modi MD BODY FLUIDS AND STOOLS ORDER BRINA Performing Organization Address [facility]/[place] [address] Glucose Level CSF (08/12/2021 1:40 PM EST) P athologist Signature Glucose, CSF 73 mg/dL [facility] Comment: CSF at equilibrium equals appro ximately 60-80% of plasma glucose. Specimen (Source) Anatomical Collection Method Collection Time Re ceived Time Location / / Volume Laterality Cerebrospinal Fluid 08/12/2021 1:40 08/12 PM EST 2:19 PM EST Resulting Agency Comment Spec In Lab Parviz Modi MD BODY FLUIDS AND STOOLS ORDER BRINA Performing Organization Address City/[facility]/[place] [address] CSF Culture (08/12/2021 1:40 PM EST) Component Value Ref Test Analysis Performed At Patholo gist Range Method Time Signature Central No growth [facility] Nervous [facility] LABORATORY Gram Stain Cytocentrifuge Gram Stain performed [facility] Neutrophils seen [place] No microorganisms seen. [facility] Specimen (Source) Anatomical Collection Method Collection Time Re ceived Time Location / / Volume Laterality Cerebrospinal Fluid 08/12/2021 1:40 08/12 PM EST 2:29 PM EST Resulting Agency Comment Spec In Lab Parviz Modi MD MICROBIOLOGY - GENERAL ORDER BRINA Performing Organization Address City/State/ZIP [place] [address] documented in this encounter Visit Diagnoses Diagnosis Acute myeloid leukemia not having achiev ed remission documented in this encounter Additional Health Concerns Infection Onset Date Last Indicated Resolved Time C. difficile 05/25/2021 05/25/2021 08/20/2021 5:29 AM EST documented as of this encounter Care Teams Steel Checker Relationship Specialty Start Date End Date Beatriz Maurice PA PCP - General Family Medicine 05/06/21 [address] [place] [address] documented as of this encounter
--- OUTSIDE RECORDS SUMMARY | 2022-02-14 11:18 | XMS_ITS | Encounter Summary ---
:1960 Author Organization [facility] Address [facility] [place] [address] Care Team Providers Name Role Phone Beatriz Maurice Primary Care Provider Encounter Details Date Type Department Care Team Description 07/10/2021 Telephone Hematology and Oncology at Faby Quiros MD [facility] Catie narvaez HEMATOLOGY/[place] [address] [place] [address] [phone] (Wo rk) Social History Tobacco Use Types [...] Telephone Encounter - Kostas Quiros MD - 07/10/2021 6:03 PM EST Hospital: [facility] ?? HPI: Mr. 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 A repeat bone marrow biopsy on 06/07 showed normocellular marrow with NTLM and 3.5% blasts c/w remission. Patient saw Dr. Modi after discharge on 06/24/21 and the plan was to give one course of consolidation therapy and then allo H SCT transplant. He underwent a bone marrow biopsy on 07/04 in preparation for [employer] which unfortunately showed relapsed AML. On 07/07, patient presented to [facility] for double vision and lower back pain at site of bone marrow biopsy. CT head is negative for acute abnormality except chronic sinusitis. Neurology was consulted and reportedly patient had brain MRI as well as MRI thoracic and lumbar spine which was negative. He was found to be positive for C Diff and started on Fidaxomycin (07/08). His labs 07/08 showed: WBC 20.5 (differential with 15% blasts), Hb 8.6, platelets 111. ?? #Relapsed AML with neurological deficits Unclear if MERCHANDISE EXECUTION LEADER involvement as it would be rare. Patient is in the process of being transferred to [facility] for expedited work up and treatment. - CBC with diff, CMP daily with TLS/DIC labs - Consent patient for transfusions - Peripheral blood smear - Transfuse 1 units PRBC if Hgb<6.5 - Transfuse 1 unit Platelets if Plt<10, <20 for fever/infection - Transfuse 1 unit (10 pooled) of cryoprecipitate if fibrinogen<100 - Hold NSAIDs and anticoagulation - Consider LP to establish MERCHANDISE EXECUTION LEADER involvement based on clinical evaluation - Begin re-induction chemotherapy. documented in this encounter Plan of Treatment Upcoming Encounters Date Type Specialty Care Team Description 02/18/2022 Infusion Hematology and Oncology 02/21/2022 Infusion Hematology and Oncology 02/24/2022 Appointment Hematology and Oncology 02/24/2022 Office Visit Hematology and Oncology Parviz Modi MD [facility] HEMATOLOGY/[place] [address] Miroslava Pelayo APRN [facility] HEMATOLOGY/[place] [address] 02/24/2022 Office Visit Wound Care 02/24/2022 Appointment Hematology and Oncology 02/26/2022 Office Visit Neurology Leni Bustamante MD [facility] NEUROLOGY DEPT. [place], [place] [address] (Wo rk) documented as of this encounter Visit Diagnoses Not on filedocumented in this encounter Additional Health Concerns Infection Onset Date Last Indicated Resolved Time C. difficile 05/25/2021 05/25/2021 08/20/2021 5:29 AM EST documented as of this encounter Care Teams Head Of Research & Insights Relationship Specialty Start Date End Date Beatriz Maurice PA PCP - General Family Medicine 05/06/21 [address] [place] [address] documented as of this encounter
--- OUTSIDE RECORDS SUMMARY | 2022-02-14 11:18 | XMS_ITS | Encounter Summary ---
:1960 Author Organization [facility] [place] [address] Care Team Providers Name Role Phone Beatriz Maurice Primary Care Provider Reason for Visit Reason Onset Date Comments Other 07/08/2021 [facility] application Encounter Details Date Type Department Care Team Description 07/08/2021 Telephone Hematology and Nichelle Barnard, Other ( [facility] [place] [facility] [place] COLLECTIONS REP application) [place] [phone] Social History Tobacco Use Types Packs/Day [...] Telephone Encounter - Nichelle Barnard MSW - 07/08/2021 12:34 PM EST CREDIT COLLECTIONS REP applied online for [facility] citlali to pay $800 towards Herber's and Chai's $1,295 car insurance bill for both their cars and faxed supporting documents (signature page, bill, and POI) today. CREDIT COLLECTIONS REP applied at the same time for a $350 [employer] grocery card. SW Intervention Food insecurity resources Financial resources documented in this encounter Plan of Treatment Upcoming Encounters Date Type Specialty Care Team Description 02/18/2022 Infusion Hematology and Oncology 02/21/2022 Infusion Hematology and Oncology 02/24/2022 Appointment Hematology and Oncology 02/24/2022 Office Visit Hematology and Oncology Parviz Modi MD [facility] DR HEMATOLOGY/[place] [address] Miroslava Pelayo APRN [facility] HEMATOLOGY/[place] [address] 02/24/2022 Office Visit Wound Care 02/24/2022 Appointment Hematology and Oncology 02/26/2022 Office Visit Neurology Leni Bustamante MD [facility] NEUROLOGY DEPT. [place], [place] [address] (Wo rk) documented as of this encounter Visit Diagnoses Not on filedocumented in this encounter Additional Health Concerns Infection Onset Date Last Indicated Resolved Time C. difficile 05/25/2021 05/25/2021 08/20/2021 5:29 AM EST documented as of this encounter Care Teams Wholesale Buyer Relationship Specialty Start Date End Date Beatriz Maurice PA PCP - General Family Medicine 05/06/21 [address] [place] [address] documented as of this encounter
--- OUTSIDE RECORDS SUMMARY | 2022-02-14 11:18 | XMS_ITS | Encounter Summary ---
:1960 Author Organization [facility] Address [facility] [place] [address] Care Team Providers Name Role Phone Beatriz Maurice Primary Care Provider Encounter Details Date Type Department Care Team Description 07/01/2021 Hospital Encounter Hematology and Acute m yeloid leukemia not having achieved remission; Oncology at [facility] Anemia, unspecified type; [facility] Thrombocy topenia; Drive Leukocytosis, unspecified ty pe; [place] [address] H/O Clostridium difficile in fection; [phone]; S/P partial res [...] Sig Dispensed Refills Start Date End Date flecainide (TAMBOCOR) Take 1 tablet by mouth [...] mouth every 6 hours. Tablet famotidine (Pepcid) 20 Take 2 tablets by mouth 30 tablet 12 06/19/2021 11/22/2021 mg Tablet daily. documented as of this encounter Plan of Treatment Upcoming Encounters Date Type Specialty Care Team Description 02/18/2022 Infusion Hematology and Oncology 02/21/2022 Infusion Hematology and Oncology 02/24/2022 Appointment Hematology and Oncology 02/24/2022 Office Visit Hematology and Oncology Parviz Modi MD [facility] DR HEMATOLOGY/[place] [address] Miroslava Pelayo APRN [facility] DR HEMATOLOGY/[place] [address] 02/24/2022 Office Visit Wound Care 02/24/2022 Appointment Hematology and Oncology 02/26/2022 Office Visit Neurology Leni Bustamante MD [facility] DR NEUROLOGY DEPT. [place], [place] [address] (Wo rk) documented as of this encounter Procedures Procedure Name Priority Date/Time Associated Diagnosis Comme nts DIFFERENTIAL, STAT 07/01/2021 11:22 AM Results for this MANUAL EST procedure are i n the results section. HEMOGRAM STAT 07/01/2021 11:22 AM Acute myeloid Results for this EST leukemia not having procedur e are in achieved remissi on the results Anemia, unspecified section. 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 ce S/P partial resection of colon HC CBC,PLT & AUTO STAT 07/01/2021 11:22 AM Acute myeloid DIFF EST leukemia not having achieved remissi on Anemia, unspecified 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 ce S/P partial resection of colon documented in this encounter Results (ABNORMAL) Differential, Manual (07/01/2021 11:22 AM EST) Patholo gist Method Time Signature Neutrophil % 79 % [facility] Lymphocyte % 13 % [facility] Monocyte % 2 % [facility] Eosinophil % 5 % [facility] Blasts % 1 % [facility] Neutrophil Abs 5.8 1.7 - 6.1 [facility] x10(3)/[facility] LABORATORY Neutr Abs (ANC) 5.80 1.70 - [facility] 6.10 [facility] x10(3)/[facility] LABORATORY Lymphocyte Abs 1.0 0.9 - 3.2 [facility] x10(3)/[facility] LABORATORY Monocyte Abs 0.2 (L) 0.3 - 0.9 [facility] x10(3)/[facility] LABORATORY Eosinophil Abs 0.4 0.0 - 0.4 [facility] x10(3)/[facility] LABORATORY Blast Abs 0.1 (H) 0.0 - 0.0 [facility] x10(3)/[facility] LABORATORY Tot Diff Cell 100 [facility] LABORATORY Plat Estimate Decreased [facility] RBC Morphology Abnormal [facility] Macrocytes 1-5 /HPF [facility] Stippled RBCs Present >1/HPF [facility] Specimen Anatomical Collection Method Collection Time Receive d Time (Source) Location / / Volume Laterality Blood 07/01/2021 11:22 07/01/2021 AM EST 11:37 AM EST Resulting Agency Comment Spec In Lab Parviz Modi MD HEMATOLOGY ORDERABLES Performing Organization Address City/State/[place] [address] (ABNORMAL) Hemogram (07/01/2021 11:22 AM EST) Analysis Performed At Patho logist Time Signature WBC 7.3 4.0 - 9.5 [facility] x10(3)/[facility] LABORATORY RBC 2.77 (L) 4.58 - [place] 5.54 [facility] x10(6)/[facility] LABORATORY Hemoglobin 9.0 (L) 13.7 - [place] 16.5 g/dL [facility]ORY Hematocrit 27.4 (L) 40.5 - [facility] 48.5 % [facility] LABORATORY MCV 98.9 (H) 82.9 - [facility] 93.1 [facility] LABORATORY MCH 32.5 (H) 27.5 - [facility] 32.1 pg [facility] LABORATORY MCHC 32.8 32.0 - [facility] 35.7 g/dL [facility]ORY Platelets 144 (L) 145 - 357 [facility] x10(3)/[facility] LABORATORY RDWSD 70.0 (H) 36.0 - [facility] 45.0 [facility] LABORATORY RDWCV 19.8 (H) 11.4 - [facility] 13.8 % [facility] LABORATORY MPV 10.3 7.6 - 12.9 [facility] LABORATORY nRBC % Auto 0.0 % [facility] nRBC Abs Auto 0.000 0.000 - [facility] 0.000 [facility] x10(3)/[facility] LABORATORY Specimen Anatomical Collection Method Collection Time Receive d Time (Source) Location / / Volume Laterality Blood 07/01/2021 11:22 07/01/2021 AM EST 11:37 AM EST Resulting Agency Comment Spec In Lab Parviz Modi MD HEMATOLOGY ORDERABLES Performing Organization Address City/State/[place] [address] documented in this encounter [...] documented as of this encounter Care Teams Financial Business Analyst Relationship Specialty Start Date End Date Beatriz Maurice PA PCP - General Family Medicine 05/06/21 [address] [place] [address] documented as of this encounter
--- OUTSIDE RECORDS SUMMARY | 2022-02-14 11:18 | XMS_ITS | Encounter Summary ---
:1960 Author Organization [facility] [place] [address] Care Team Providers Name Role Phone Beatriz Maurice Primary Care Provider Reason for Visit Reason Comments Prior Authorization Encounter Details Date Type Department Care Team Description 07/12/2021 Specialty Pharmacy Pharmacy at [facility] Mahnaz, Prior Authorization [facility] [place] [id number] Social History Tobacco Use Types Packs/Day Years [...] of this encounter Progress Notes Violeta Joya [facility] - 07/12/2021 1:43 PM EST [facility], No Prior Authorization Required Patient: Herber Iverson Patient : 1960 Patient Address: [address] [place] [address] (home) Medication Name: XOSPATA ORAL Medication ID: [id number] Patient Location: [facility] Patient Location Comment: Medication Strength Frequency Requested: Xospata 120mg daily Qty/Day Supply: 120/30 New Start: New to Therapy Diagnosis & ICD-10 Code: C92.00 Subscriber Insurance: Subscriber Insurance Comment: Kj Mach[address] [employer] [facility] Phone: [phone] Fax: Physician: KIKO EDWARDS Physician Comment : Entered by Fellow, Kostas Quiros MD PA Status: NO PA REQUIRED Insurance mandated Pharmacy: [facility] Fillable at [facility]: No Insurance requirements/notes: None Pharmacy staff will be reaching out to the patient to inform them of their medication's approval by their insurance. If applicable, a pharmacist will speak with the patient to offer our specialty pharmacy services and to arrange delivery of their medication. Violeta Joya RPH 07/12/21 2:14 PM documented in this encounter Plan of Treatment Upcoming Encounters Date Type Specialty Care Team Description 02/18/2022 Infusion Hematology and Oncology 02/21/2022 Infusion Hematology and Oncology 02/24/2022 Appointment Hematology and Oncology 02/24/2022 Office Visit Hematology and Oncology Parviz Modi MD [facility] DR HEMATOLOGY/[place] [address] Miroslava Pelayo APRN [facility] HEMATOLOGY/[place] [address] 02/24/2022 Office Visit Wound Care 02/24/2022 Appointment Hematology and Oncology 02/26/2022 Office Visit Neurology Leni Bustamante MD [facility] NEUROLOGY DEPT. [place], [place] [address] (Wo rk) documented as of this encounter Visit Diagnoses Not on filedocumented in this encounter Additional Health Concerns Infection Onset Date Last Indicated Resolved Time C. difficile 05/25/2021 05/25/2021 08/20/2021 5:29 AM EST documented as of this encounter Care Teams Record Press Operator Relationship Specialty Start Date End Date Beatriz Maurice PA PCP - General Family Medicine 05/06/21 [address] [place] [address] documented as of this encounter
--- OUTSIDE RECORDS SUMMARY | 2022-02-14 11:18 | XMS_ITS | Encounter Summary ---
:1960 Author Organization [facility] Address [address] [facility] [address] [place] [address] Care Team Providers Name Role Phone Beatriz Maurice Primary Care Provider Encounter Details Date Type Department Care Team Description 07/09/2021 Ancillary Procedure Radiology Library at Aruna Maurice [facility] Butts [facility] [address] [place] [address] [place] [address] [phone] Social History Tobacco Use Types Packs/Day Years [...] [facility] DR HEMATOLOGY/[place] [address] Miroslava Pelayo APRN [facility] DR HEMATOLOGY/[place] [address] 02/24/2022 Office Visit Wound Care 02/24/2022 Appointment Hematology and Oncology 02/26/2022 Office Visit Neurology Leni Bustamante MD [facility] DR NEUROLOGY DEPT. [place], [place] [address] (Wo rk) documented as of this encounter Procedures Procedure Name Priority Date/Time Associated Diagnosis Comme nts FILM LIBRARY Routine 07/09/2021 12:58 PM Results for this STORAGE ONLY MR EST procedure ar e in SPINE the results section. documented in this encounter Results Film Library- Storage Only MR Spine (07/09/2021 12:58 PM EST) Specimen (Source) Anatomical Location Collection Method / Collectio n Time Received Time / Laterality Volume Narrative RAD - 07/09/2021 12:58 PM EST This exam is auto-finalizing. It's purpo se is for storage only. Beatriz DE LA FUENTE IMElaine FILM LIBRARY ORDERABLES Performing Organization Address City/State/ZIP Code Phon e Number [place], [place] documented in this encounter Visit Diagnoses Not on filedocumented in this encounter Additional Health Concerns Infection Onset Date Last Indicated Resolved Time C. difficile 05/25/2021 05/25/2021 08/20/2021 5:29 AM EST documented as of this encounter Care Teams Seismograph Observer Relationship Specialty Start Date End Date Beatriz Maurice PA PCP - General Family Medicine 05/06/21 [address] [place] [address] documented as of this encounter
--- OUTSIDE RECORDS SUMMARY | 2022-02-14 11:18 | XMS_ITS | Encounter Summary ---
:1960 Author Organization [facility] [place] [address] Care Team Providers Name Role Phone Beatriz Maurice Primary Care Provider Encounter Details Date Type Department Care Team Description 07/04/2021 [facility] Visit [facility] Meron Carvajal, Surgery follow-up [facility] [place] [address] GENERAL SURGERY [place], [place] [address] (Wo rk) Social History Tobacco [...] Sign Reading Time Taken Comments Blood Pressure 136/87 07/04/2021 11:30 AM EST Pulse 106 07/04/2021 11:30 AM EST Temperature - - Respiratory Rate 16 07/04/2021 11:30 AM EST Oxygen Saturation 100% 07/04/2021 11:30 AM EST Inhaled Oxygen Concentration - - Weight 101.9 kg (224 lb 9.6 oz) 07/04/2021 11:30 AM EST Height - - Body Mass Index 32.34 07/01/2021 9:14 AM EST documented in this encounter Progress Notes Meron Carvajal, [employer] - 07/04/2021 11:00 AM EST Mr Herber Iverson presents to clinic today for surgical follow up. Herber is a 60 y.o.??male?w/ hx of GERD, paroxysmal Afib (not on anticoagulatoin) who was admitted with a new diagnosis of AML (cytogenetics FLT3 positive) day 19 s/p 7+3 cytarabine/daunorubicin with day 9 midostaurin. Per hem/onc documentation: day 14 bone marrow showed adequate marrow clearing effe ct. Patient developed neutropenic fevers over the week, prior to surgery, was on cefepime then broadened to vanc/zosyn. Initially felt to have PNA however over the next 36 hours developed worsening diffuse abdominal pain with fever, then pressors requirement, upgrade to ICU treated empirically for c.diff, and earlier this morning sudden cardiovascular collapse requiring levo/vaso and epinephrine to maintain MAP>65. CT imaging from 05/25 concerning for pancolitis. General surgery was urgently consulted and decision made to proceed to operating room for exploratory laparotomy. 06/06/21: Ileostomy or jejunostomy non tube exploratory laparotomy reopen-[facility] Findings: -healthy appearing rectal suture line, distal ileal staple line -abdomen irrigated -end ileostomy matured -fascia closed 05/26/21: Total abdominal colectomy, abthera vac placement-[facility] Findings: - Diffusely edematous colon with skip areas of patchy ischemia, small bowel all appeared grossly normal but edematous, performed ex lap subtotal colectomy with hand sewn rectal stump left in discontinuity (stapled off terminal ileum) - Coagulopathic at end of case with diffuse oozing - Left 3 lap pads in abdomen at end of case Pathology: DIAGNOSIS A - Subtotal colectomy, excision: - Acute necrotizing colitis with features of ischemic and pseudomembranous ??colitis. - Appendix ??negative for diagnostic abnormality. Herber reports he has been feeling pretty well and gaining in strength since discharge. Last evening he had burning pain that went from his right mid quadrant around to his right lower back. This resolved over night. He thinks it may have been associated with giving his right foot toe nails a trim which required that he twist his right leg up and over across his belly. He is having no pain whatsoeverthis am in clinic and feels quite well. EXAM: Non toxic appearing, moves easily about the exam room and onto the exam table. Abd soft non tender non distended, midline abdominal incision is nicely healed, there is no evidenceof hernia. I cannot reproduce the pain he describes on palpation of his abdomen of back. Ostomy is pink and viable with brown oatmeal consistency stool in the pouch. Impression/plan: In regard to his abdominal and back discomfort of last evening possible that this represents muscular strain. I offered lab work, however he and his prefer to monitor for any return of his discomfort, if it does he will report for evaluation at [facility]. I told them that he is also welcome to come down to our ED. They are pleased with this plan. Will see him back in one month, as needed over the interval. documented in this encounter Plan of Treatment Upcoming Encounters Date Type Specialty Care Team Description 02/18/2022 Infusion Hematology and Oncology 02/21/2022 Infusion Hematology and Oncology 02/24/2022 Appointment Hematology and Oncology 02/24/2022 Office Visit Hematology and Oncology Parviz Modi MD [facility] DR HEMATOLOGY/[place] [address] Miroslava Pelayo APRN [facility] HEMATOLOGY/[place] [address] 02/24/2022 Office Visit Wound Care 02/24/2022 Appointment Hematology and Oncology 02/26/2022 Office Visit Neurology Leni Bustamante MD [facility] NEUROLOGY DEPT. [place], [place] [address] (Wo rk) documented as of this encounter Visit Diagnoses Diagnosis Surgery follow-up Follow-up examination, following unspeci fied surgery documented in this encounter Additional Health Concerns Infection Onset Date Last Indicated Resolved Time C. difficile 05/25/2021 05/25/2021 08/20/2021 5:29 AM EST documented as of this encounter Care Teams Roof Slater Relationship Specialty Start Date End Date Beatriz Maurice PA PCP - General Family Medicine 05/06/21 [address] [place] [address] documented as of this encounter
--- OUTSIDE RECORDS SUMMARY | 2022-02-14 11:18 | XMS_ITS | Encounter Summary ---
:1960 Author Organization [facility] Address [facility] [place] [address] Care Team Providers Name Role Phone Beatriz Maurice Primary Care Provider Encounter Details Date Type Department Care Team Description 07/12/2021 Ancillary Procedure [place] [address] Social History Tobacco Use Types Packs/Day [...] MD [facility] DR HEMATOLOGY/[place] [address] Miroslava Pelayo APRN [facility] DR HEMATOLOGY/[place] [address] 02/24/2022 Office Visit Wound Care 02/24/2022 Appointment Hematology and Oncology 02/26/2022 Office Visit Neurology Leni Bustamante MD [facility] DR NEUROLOGY DEPT. [place], [place] [address] (Wo rk) documented as of this encounter Procedures Procedure Name Priority Date/Time Associated Diagnosis Comme nts REQUEST FOR 2ND Routine 07/12/2021 1:15 PM Result s for this READ CT SPINE EST procedure are in the results section. documented in this encounter Results Request For 2nd Read CT Spine (07/12/2021 1:15 PM EST) Anatomical Region Laterality Modality C-spine, T-spine, L-spine SO Specimen (Source) Anatomical Location Collection Method / Collectio n Time Received Time / Laterality Volume Impressions 07/12/2021 1:52 PM EST No thoracic or lumbar fracture or aggressive osseous lesion. Thank you for letting us participate in the care of this patient. ??If you are a health care provider and have any questi ons regarding this report, please contact the number below. ??For patients who have questions please contact the health home health care social worker that requested your imaging first. ? Narrative 07/12/2021 1:52 PM EST EXAMINATION: REQUEST FOR 2ND READ CT SPINE CLINICAL HISTORY: new diplopia; Sending Institution image in chart/image library; Date of exam [id number]; I believ e a reinterpretation of this exam may alter care of Patient. Yes TECHNIQUE: CTA thoracic and lumbar spine without contrast. Study was performed at 07/07/2021 COMPARISON: None FINDINGS: Thoracic spine: Overall thorac ic alignment is unremarkable. There is no thoracic disc degenerative changes wi th anterior osteophytes. There is no aggressive osseous lesion. There is no e vidence recent fracture. No osseous canal or foraminal stenosis. Lumbar spine: Lumbar alignment is unrema rkable. There is no fracture. No aggressive osseous lesion. Visualized re troperitoneal structures are unremarkable. Procedure Note Nas Patino MD - 07/12/2021Format ting of this note might be different from the original. EXAMINATION: REQUEST FOR 2ND READ CT SPI NE CLINICAL HISTORY: new diplopia; Sending Institution image in chart/image library; Date of exam [id number]; I believ e a reinterpretation of this exam may alter care of Patient. Yes TECHNIQUE: CTA thoracic and lumbar spine without contrast. Study was performed at 07/07/2021 COMPARISON: None FINDINGS: Thoracic spine: Overall thorac ic alignment is unremarkable. There is no thoracic disc degenerative changes wi th anterior osteophytes. There is no aggressive osseous lesion. There is no e vidence recent fracture. No osseous canal or foraminal stenosis. Lumbar spine: Lumbar alignment is unrema rkable. There is no fracture. No aggressive osseous lesion. Visualized re troperitoneal structures are unremarkable. IMPRESSION No thoracic or lumbar fracture or aggres sive osseous lesion. Thank you for letting us participate in the care of this patient. If you are a health care provider and have any questi ons regarding this report, please contact the number below. For patients w ho have questions please contact the health home health care social worker that requested your imaging first. Miguel Angel Archer MD IMG OUTSIDE INTERPRETATION O RDERABLES documented in this encounter Visit Diagnoses Not on filedocumented in this encounter Additional Health Concerns Infection Onset Date Last Indicated Resolved Time C. difficile 05/25/2021 05/25/2021 08/20/2021 5:29 AM EST documented as of this encounter Care Teams Broach Grinder Relationship Specialty Start Date End Date Beatriz Maurice PA PCP - General Family Medicine 05/06/21 [address] [place] [address] documented as of this encounter
--- OUTSIDE RECORDS SUMMARY | 2022-02-14 11:18 | XMS_ITS | Encounter Summary ---
:1960 Author Organization [facility] [place] [address] Care Team Providers Name Role Phone Beatriz Maurice Primary Care Provider Encounter Details Date Type Department Care Team Description 07/04/2021 Hospital Encounter Hematology and Acute m yeloid leukemia Oncology at [facility] [place] [address] Social History Tobacco Use Types Packs/Day [...] Sign Reading Time Taken Comments Blood Pressure 135/85 07/04/2021 8:01 AM EST Pulse 98 07/04/2021 8:01 AM EST Temperature 36.3 ??C (97.3 ??F) 07/04/2021 8:01 AM EST Respiratory Rate 16 07/04/2021 8:01 AM EST Oxygen Saturation 98% 07/04/2021 8:01 AM EST Inhaled Oxygen Concentration - - Weight - - Height - - Body Mass Index - - documented in this encounter Medications at Time of Discharge Medication Sig Dispensed Refills Start Date End Date LORazepam (Ativan) 1 Take 1 tablet after 1 tablet 0 202008/08/2021 mg Tablet arriving at [facility] and approximately 30 minutes prior to bone marrow biopsy procedure. Do not take while driving. flecainide (TAMBOCOR) Take 1 tablet by mouth 2 60 tablet 3 06/19/2021 11/18/2021 50 mg Tablet times daily. loperamide (Imodium Take 1 capsule [...] Tablet daily. documented as of this encounter Procedure Notes Hayley Palmer APRN - 07/04/2021 9:54 AM ESTProcedure(s): HC DIAGNOSTIC BONE MARROW BIOPSIES Pre-Procedure Diagnose(s): Acute myeloid leukemia in remission BONE MARROW BIOPSY AND ASPIRATION PROCEDURE NOTE Bone Marrow Biopsy & Aspiration with Local Anesthesia only - Unilateral Date/Time of Procedure: Proceduralist: Hayley Palmer DIAGNOSIS: Pre-Procedure: (x) Consent signed and on chart. (x) CBC drawn within 3 days. (x) Medications/Allergies/Problem List reviewed. Prior to start of procedure the following is verified in a TIME OUT: (x) Patient identity (x) Planned procedure (x) Safety concerns IV ACCESS: n/a PAIN INTERVENTION: n/a Sterile Condition: Chlorohexidine/betadine was used to sterilize the area. Sterile drapes were used to create a sterile field. Local Anesthesia: 1% Lidocaine. Total dose: 30 cc PROCEDURE: A bone marrow biopsy and aspiration was performed on the right posterior iliac crest. Pressure applied to site(s) for at least 20 minutes following the procedure and Tegaderm placed. Estimated Blood Loss: minimal Complications: none POST INTERVENTION CARE & PAIN ASSESSMENT: Per [facility] nurses. Follow-up: Written/Verbal instructions for site care given to patient per [facility] nurses. Follow-up with Physician as instructed. Hayley Palmer APRN documented in this encounter Plan of Treatment Upcoming Encounters Date Type Specialty Care Team Description 02/18/2022 Infusion Hematology and Oncology 02/21/2022 Infusion Hematology and Oncology 02/24/2022 Appointment Hematology and Oncology 02/24/2022 Office Visit Hematology and Oncology Parviz Modi MD [facility] DR HEMATOLOGY/[place] [address] Miroslava Pelayo APRN [facility] HEMATOLOGY/[place] [address] 02/24/2022 Office Visit Wound Care 02/24/2022 Appointment Hematology and Oncology 02/26/2022 Office Visit Neurology Leni Bustamante MD [facility] NEUROLOGY DEPT. [place], [place] [address] (Wo rk) documented as of this encounter Procedures Procedure Name Priority Date/Time Associated Comments Diagnosis IMMUNOPHENOTYPING FLOW Routine 07/04/2021 8:30 Re sults for this CYTOMETRY AM EST procedure are i n the results section. BONE MARROW FINAL REPORT Routine 07/04/2021 8:30 Results for this AM EST procedure are i n the results section. IRON STAIN, BONE MARROW Routine 07/04/2021 8:30 Acute myeloid Results for this AM EST leukemia in procedure are i n remission the results section. BONE MARROW PANEL Routine 07/04/2021 8:30 Acute myeloid ([facility]/APD) AM EST leukemia in remission documented in this encounter Results Bone Marrow Final Report (07/04/2021 8:30 AM EST) Component Value Ref Test Analysis Performed At [facility] Method Time Signature Bone Marrow [id number] ? Location: [address] [place] [address] Final Report ARASELI The signing pathologist has (i) examined the relevant preparation(s) for the [facility]IAL specimen(s) and (ii) rendered or confirmed the diagnosis(es) . HOSPITAL LABORATORY . ? Bone Marrow Final DIAGNOSIS BONE MARROW (PERIPHERAL SMEAR, ASPIRATE SMEAR, TOUCH PREP, C ORE BIOPSY): ?? 1. ??AML (Pre-allogenic transplant), by history 2. Hypercellular marrow (60-70%) with relapsed Acute Myeloid Leukemia. Electronically signed by: ?Chuyita STEPHENSON, Eliseo Verified: ??07/06/2021 8:18 ?? Hematopathologist Performed at: ??-[facility] Dept. of Pathology, [place], [place] DISCUSSION Flow analysis supports the above finding. Case discussed with Dr Loza ?? Ly 07/04/21. Case dictated by K ??Steve ??M.D. ??(Hematopathology [facility]) As the attending physician, I attest that I examined the histologic slides, and confirm the ??diagnosis. PERIPHERAL SMEAR CBC from 07/01/21: WBC 7.3K/ uL, RBC 2.7M/ uL, HGB 9g/dL, MCV 99fL, RDW 19.8%, PLT 144K/ ??uL There is a moderate normocyt ic macrocytic anemia. Anisocytosis is increased with elliptocytes ??dacrocytes ? ?present. Granulocytes show left shift with rare blasts. There is borderline thrombocytopenia but platelet morpholog y is normal. BONE MARROW ASPIRATE Adequacy: ?Smear/touch preparations adequate, hyperce llular. G:E ratio: ? 2:1 Erythroid: ? Complete normoblastic maturation, no left-s hift. Granulocyte: ?? Left shifted maturation; increased blast ( 2 6%) . Megakaryocyte: Normal in number and morphology. Lymphocyte: ?Scattered mature forms seen, no aggregates appreciated. iron stain: ?Iron stores increased, no ring sideroblasts . DIFFERENTIAL Band/Seg 20%; Lymph 3%; Wolfe 2%; Eos 4%; Baso 0%; Metamyelocyte 1%; Myelocyte 3%; Promyelocyte 10%; Blast 26%; nRBC's ??28%; Plasma cell 3%; Other 0%; BONE MARROW BIOPSY and/or CLOT ?Adeq uacy: ?Decalcified, limited; ??Blood clots with evaluable marrow Cellularity: ?? Hypercellular, 60-70% Erythroid: ? Precursors numerically normal ?Gran ulocyte: ?? Left shifted precursors are increased with increased ? blasts ?Zachary karyocyte: Adequate numbers seen in the limited specimen. Lymphocytes: ?? No abnormal aggregates identified. CLINICAL INFORMATION Specimen: ? Bone marrow aspirate and biop sy, right Clinical Diagnosis: ? 60M: AML Indication for Study: ?? Pre-allogenic transplant evaluation . ?Dru w Cytometry DIAGNOSIS BONE MARROW ASPIRATE, FLOW CYTOMETRY: - An increased myeloblast population (17%) is detected (see Discussion). Electronically signed by: ?Chuyita STEPHENSON, Eliseo Verified: ??07/06/2021 8:04 ?? Hematopathologist Performed at: ??-[facility] Dept. of Pathology, [place], [place] DISCUSSION Blasts account for approxima tely 17% of total nucleated, non-erythroid cells and have the immunophenotype, CD45(d im)+ CD34(small subset)+ CD117+ HLADR++ CD13+ CD33+ and CD56- similar to immunophen otypic profile of myeloblasts previously reported on the peripheral blood ([id number]) Flow analysis is an ancillar y study. A definite diagnosis requires correlation with the morphologic features of this process and if necessary, correlation with other ancillary studies like immu nohistochemistry, enzyme cytochemistry and/or cyto/ molecular genetics. This test was developed and its performance veronica acteristics determined by the Clinical Flow Cytometry Lab oratory at [facility]. It has not been cleared or approve [...] complexity clinic al laboratory testing. SPECIMEN PROCESSING [id number] Cells for immunophenotypic a nalysis were derived from bone marrow. CD45 vs side scatter gating was utilized to identify a CD45 dim analysis region that comprises approximately 17% of all cells. The following markers were a ssessed: CD3, CD13, CD14, CD19, CD34, CD45, CD56, CD117, and HLA-DR. CLINICAL INFORMATION AML, Specimen (Source) Anatomical Collection Method Collection Time Re ceived Time Location / / Volume Laterality 07/04/2021 8:30 AM EST Hayley Palmer APRN PATHOLOGY/CYTOLOGY ORDERABLE S Performing Organization Address City/State/ZIP Code Phon e Number [facility] [address] Immunophenotyping Flow Cytometry (07/04/2021 8:30 AM EST) Component Value Ref Test Analysis Performed At [facility] Range Method Time Signature Immunophenotyping See [facility] Comment [facility] LABORATORY Comment: When completed by the Pathologist, the F low Cytometry Report ([id number]) will display under the Pathology Result s section within [facility]. Specimen Anatomical Collection Method Collection Time Receive d Time (Source) Location / / Volume Laterality Bone Marrow 07/04/2021 8:30 AM 9:50 EST AM EST Resulting Agency Comment Spec In Lab Hayley Palmer APRN HEMATOLOGY ORDERABLES Performing Organization Address City/State/ZIP Code Phon e Number [address] Iron Stain, Bone Marrow (07/04/2021 8:30 AM EST) Patholo gist Method Time Signature Iron Stain BM See Comment [facility] LABORATORY Comment: See Bone Marrow Report [id number] under Hematopathology Reports. Specimen Anatomical Collection Method Collection Time Receive d Time (Source) Location / / Volume Laterality Bone Marrow 07/04/2021 8:30 AM 9:50 EST AM EST Resulting Agency Comment Spec In Lab Hayley Palmer TOOLROOM ATTENDANT HEMATOLOGY ORDERABLES Performing Organization Address City/State/[place] [address] documented in this encounter Visit Diagnoses Diagnosis Acute myeloid leukemia in remission documented in this encounter Additional Health Concerns Infection Onset Date Last Indicated Resolved Time C. difficile 05/25/2021 05/25/2021 08/20/2021 5:29 AM EST documented as of this encounter Care Teams Truck Sales Manager Relationship Specialty Start Date End Date Beatriz Maurice PA PCP - General Family Medicine 05/06/21 [address] [place] [address] documented as of this encounter
--- OUTSIDE RECORDS SUMMARY | 2022-02-14 11:18 | XMS_ITS | Encounter Summary ---
:1960 Author Organization [facility] Address [address] [place] [address] Care Team Providers Name Role Phone Beatriz Maurice Primary Care Provider Encounter Details Date Type Department Care Team Description 07/08/2021 Ancillary Procedure Radiology Library at Aruna Maurice [facility] LEISA Butts [facility] [address] [place] [address] [place] [address] [phone] Social History Tobacco Use Types Packs/Day Years [...] [facility] DR HEMATOLOGY/[place] [address] Miroslava Pelayo APRN [facility] DR HEMATOLOGY/[place] [address] 02/24/2022 Office Visit Wound Care 02/24/2022 Appointment Hematology and Oncology 02/26/2022 Office Visit Neurology Leni Bustamante MD [facility] DR NEUROLOGY DEPT. [place], [place] [address] (Wo rk) documented as of this encounter Procedures Procedure Name Priority Date/Time Associated Diagnosis Comme nts FILM LIBRARY Routine 07/08/2021 12:00 AM Results for this STORAGE ONLY MR EST procedure ar e in HEAD the results section. documented in this encounter Results Film Library- Storage Only MR Head (07/08/2021 12:00 AM EST) Specimen (Source) Anatomical Location Collection Method / Collectio n Time Received Time / Laterality Volume Narrative RAD - 07/09/2021 11:18 AM EST This exam is auto-finalizing. It's purpo se is for storage only. Beatriz DE LA FUENTE IMElaine FILM LIBRARY ORDERABLES Performing Organization Address City/State/ZIP Code Phon e Number [place], [place] documented in this encounter Visit Diagnoses Not on filedocumented in this encounter Additional Health Concerns Infection Onset Date Last Indicated Resolved Time C. difficile 05/25/2021 05/25/2021 08/20/2021 5:29 AM EST documented as of this encounter Care Teams Implementation Specialist Relationship Specialty Start Date End Date Beatriz Maurice PA PCP - General Family Medicine 05/06/21 [address] [place] [address] documented as of this encounter
--- OUTSIDE RECORDS SUMMARY | 2022-02-14 11:18 | XMS_ITS | Encounter Summary ---
:1960 Author Organization [facility] [place] [address] Care Team Providers Name Role Phone Beatriz Maurice Primary Care Provider Encounter Details Date Type Department Care Team Description 07/04/2021 Notes Only Hematology and [place]cology [place] [address] Social History Tobacco Use Types Packs/Day [...] encounter Progress Notes Nichelle Barnard MSW - 07/04/2021 2:49 PM EST GRANULATOR OPERATOR met with Herber Iverson and his S/O Morales [place]. Herber provided POI documents for him, Morales, and her mother Jimena, and a $1,295 annual car insurance bill ([employer]) for their two cars. GRANULATOR OPERATOR will apply for an $800 [facility] citlali toward this amount as well as a JA $350 grocery card from [employer]. As virtually all of the rest of their joint bills are in Morales's name, the easiest way to help Herber cost shift to afford his share of the bills is to purchase a $500 [employer] card for him using the [employer] citlali. Herber was in agreement with this. GRANULATOR OPERATOR will ask Halie Hall to buy this card and code it to [employer] for this BMT patient. GRANULATOR OPERATOR gave Mayuri shelf-stable food package today. It has been determined that the patient has food insecurity and/or dietary needs. The following action has been taken: Emergency shelf-stable food box SW Intervention: Food insecurity resources Financial resources documented in this encounter Plan of Treatment Upcoming Encounters Date Type Specialty Care Team Description 02/18/2022 Infusion Hematology and Oncology 02/21/2022 Infusion Hematology and Oncology 02/24/2022 Appointment Hematology and Oncology 02/24/2022 Office Visit Hematology and Oncology Parviz Modi MD [facility] DR HEMATOLOGY/[place] [address] Miroslava Pelayo APRN [facility] DR HEMATOLOGY/[place] [address] 02/24/2022 Office Visit Wound Care 02/24/2022 Appointment Hematology and Oncology 02/26/2022 Office Visit Neurology Leni Bustamante MD [facility] NEUROLOGY DEPT. [place], [place] [address] (Wo rk) documented as of this encounter Visit Diagnoses Not on filedocumented in this encounter Additional Health Concerns Infection Onset Date Last Indicated Resolved Time C. difficile 05/25/2021 05/25/2021 08/20/2021 5:29 AM EST documented as of this encounter Care Teams Systems Integration Engineer Relationship Specialty Start Date End Date Beatriz Maurice PA PCP - General Family Medicine 05/06/21 [address] [place] [address] documented as of this encounter
--- OUTSIDE RECORDS SUMMARY | 2022-02-14 11:18 | XMS_ITS | Encounter Summary ---
:1960 Author Organization [facility] [place] [address] Care Team Providers Name Role Phone Beatriz Maurice Primary Care Provider Reason for Visit Reason Onset Date Comments Other 07/18/2021 [facility]erino Award Encounter Details Date Type Department Care Team Description 07/18/2021 Telephone Hematology and Nichelle Barnard, Other ( [facility] Oncology at [facility] Award) [place] [address] Social History Tobacco Use Types Packs/Day [...] Telephone Encounter - Nichelle Barnard MSW - 07/18/2021 1:51 PM EST JENNIFER received e-mail from [facility] advising that Herber was approved for a $350 [employer] card. Itwill be mailed to him at home within one week. SW Intervention: Food insecurity resources documented in this encounter Plan of Treatment Upcoming Encounters Date Type Specialty Care Team Description 02/18/2022 Infusion Hematology and Oncology 02/21/2022 Infusion Hematology and Oncology 02/24/2022 Appointment Hematology and Oncology 02/24/2022 Office Visit Hematology and Oncology Parviz Modi MD [facility] DR HEMATOLOGY/[place] [address] Miroslava Pelayo APRN [facility] DR HEMATOLOGY/[place] [address] 02/24/2022 Office Visit Wound Care 02/24/2022 Appointment Hematology and Oncology 02/26/2022 Office Visit Neurology Leni Bustamante MD [facility] DR NEUROLOGY DEPT. [place], [place] [address] (Wo rk) documented as of this encounter Visit Diagnoses Not on filedocumented in this encounter Additional Health Concerns Infection Onset Date Last Indicated Resolved Time C. difficile 05/25/2021 05/25/2021 08/20/2021 5:29 AM EST documented as of this encounter Care Teams Ferry Engineer Relationship Specialty Start Date End Date Beatriz Maurice PA PCP - General Family Medicine 05/06/21 [address] [place] [address] documented as of this encounter
--- OUTSIDE RECORDS SUMMARY | 2022-02-14 11:18 | XMS_ITS | Encounter Summary ---
:1960 Author Organization [facility] Address [address] [place] [address] Care Team Providers Name Role Phone Beatriz Maurice Primary Care Provider Encounter Details Date Type Department Care Team Description 07/12/2021 Ancillary Procedure Radiology [place] [address] Social History Tobacco Use Types Packs/Day [...] [facility] DR HEMATOLOGY/[place] [address] Miroslava Pelayo APRN [facility] DR HEMATOLOGY/[place] [address] 02/24/2022 Office Visit Wound Care 02/24/2022 Appointment Hematology and Oncology 02/26/2022 Office Visit Neurology Leni Bustamante MD [facility] DR NEUROLOGY DEPT. [place], [place] [address] (Wo rk) documented as of this encounter Procedures Procedure Name Priority Date/Time Associated Diagnosis Comme nts REQUEST FOR 2ND Routine 07/12/2021 1:16 PM Result s for this READ MR HEAD EST procedure are i n the results section. documented in this encounter Results Request for 2nd read MR Head (07/12/2021 1:16 PM EST) Anatomical Region Laterality Modality SO Specimen (Source) Anatomical Location Collection Method / Collectio n Time Received Time / Laterality Volume Impressions 07/12/2021 1:57 PM EST No intracranial mass, abnormal enhancement, or evidence of recent infarct. Thank you for letting us participate in the care of this patient. ??If you are a health care provider and have any questi ons regarding this report, please contact the number below. ??For patients who have questions please contact the health family member caretaker that requested your imaging first. ? Narrative 07/12/2021 1:57 PM EST EXAMINATION: REQUEST FOR 2ND READ MR HEAD CLINICAL HISTORY: new diplopia; Sending Institution imagine in chart/image library; Date of exam [id number]; I believ e a reinterpretation of this exam may alter care of Patient. Yes; new diplopia TECHNIQUE: MR the brain performed prior to and following intravenous administration of 20 mL dotarem. Study w as performed at [facility] on 07/08/2021 COMPARISON: CT 07/07/2021 FINDINGS: The ventricles are normal in s ize and contour. There is no intracranial mass, mass effect, or shift . There is no abnormal enhancement. Diffusion images are normal. A linear ar ea of susceptibility related signal loss in the left frontal lobe may represent a prominent vein. Signal in this area on multiple sequences normal. Major intracr anial flow voids are normal. Procedure Note Nas Patino MD - 07/12/2021Format ting of this note might be different from the original. EXAMINATION: REQUEST FOR 2ND READ MR CONTRERAS Haddad CLINICAL HISTORY: new diplopia; Sending Institution [facility] in chart/image library; Date of exam 20210708; I believ e a reinterpretation of this exam may alter care of Patient. Yes; new diplopia TECHNIQUE: MR the brain performed prior to and following intravenous administration of 20 mL dotarem. Study w as performed at [facility] on 07/08/2021 COMPARISON: CT 07/07/2021 FINDINGS: The ventricles are normal in s ize and contour. There is no intracranial mass, mass effect, or shift . There is no abnormal enhancement. Diffusion images are normal. A linear ar ea of susceptibility related signal loss in the left frontal lobe may represent a prominent vein. Signal in this area on multiple sequences normal. Major intracr anial flow voids are normal. IMPRESSION No intracranial mass, abnormal enhanceme nt, or evidence of recent infarct. Thank you for letting us participate in the care of this patient. If you are a health care provider and have any questi ons regarding this report, please contact the number below. For patients w ho have questions please contact the health family member caretaker that requested your imaging first. Electronically signed by: Nas Patino MD, [facility] ([phone]), at 07/12/2021 1:57 PM Miguel Angel Archer MD IMG OUTSIDE INTERPRETATION O RDERABLES documented in this encounter Visit Diagnoses Not on filedocumented in this encounter Additional Health Concerns Infection Onset Date Last Indicated Resolved Time C. difficile 05/25/2021 05/25/202108/20/2021 5:29 AM EST documented as of this encounter Care Teams Director Of Individual Giving Relationship Specialty Start Date End Date Beatriz Maurice PA PCP - General Family Medicine 05/06/21 [address] [place] [address] documented as of this encounter
--- OUTSIDE RECORDS SUMMARY | 2022-02-14 11:18 | XMS_ITS | Encounter Summary ---
:1960 Author Organization [facility] [place] [address] Care Team Providers Name Role Phone Beatriz Maurice Primary Care Provider Reason for Visit Reason Comments Follow Up Surgery Ileostomy Encounter Details Date Type Department Care Team Description 07/04/2021 Office Visit General Surgery at [facility] [place] [address] Social History Tobacco Use Types Packs/Day [...] documented as of this encounter Progress Notes Qiana Bernard RN - 07/04/2021 11:00 AM EST Images from the original note were not included. Post op Clinic Visit Diagnosis: Hospital Problems as of 07/04/2021 None Problem List as of 07/04/2021 Acute leukemia Clostridium difficile colitis Attention to ileostomy Surgery/Date: 05/28/21 Procedure(s) (LRB): @ILEOSTOMY OR JEJUNOSTOMY, NON TUBE (WRVU 17.59) (N/A) @EXPLORATORY LAPAROTOMY, REOPENING OF RECENT (WRVU 17.63) (N/A) D/C Date: 06/20/21 [facility]NA/Rehab Facility: [facility] Reason for Visit: f/u with Meron [employer] and technical support representative Ostomy Supplies: wearing Coloplast cut to fit one piece soft convex pouch (#12014) and Elastic Barrier Strips. Leaking today but improvement since last talked with Reyna on 06/24. I did try the smallercut to fit soft convex pouch #[id number] today. Used belt as he has been doing this as well. Supplies Ordered/Vendor:has not ordered but will wait to hear from pt early next week after he has had a change to trial pouch. Samples Ordered: at time of d/c Patient Teaching/Follow-up:pt and Chai kent, here today. He had appt with Oncology prior to our appt and had a bone marrow bx. Pt is doing ok and improving slowly. He and Chai have been doing the Ileostomy pouch change together and had better luck with the last 2 pouch changes. The pouch was beginning to undermine the wafer today, they had not yet noticed. I showed them this. After being examined by Meron I removed his pouch, cleaned the stoma and skin and did more ostomy teaching. Chai was not present for education during pt's hospitalization so learned from the [facility] and pt. The [facility] did not haveas good luck as the two of them with the pouch change. I measured his stoma at 1 1/8 x 1 3/8 but cut the pattern circular in a new Coloplast cut to fit soft convex pouch, #[id number]. The size of his stoma fits the largest cut opening on this pouch so they liked that for ease. They were concerned about cutting the pattern smaller but I showed them how his skin is denuded and he needs to protect more of the peristomal skin. I demonstrated use of the Adapt powder and Nosting skin prep. I then applied thepouch and the belt. He had been applying the belt the wrong way but showed him how the tabs go down.I picture framed his pouch with Elastic barrier strips by Max, as that is what I had. I also gave him some samples of this pouch (3) and 3 more of the Morven pre cut 1 1/4 soft convex pouch #[id number] and instructed them to cut small wedge at the 3 and 9 o'clock area on the pouch. I also gave them a Morven 2 prong belt to use. They like the Coloplast pouch so I feel that they will likely stick with this. I asked that they call us early next week to let us know if this works without leakage and we can order. Pt checked with Insurance and wants to try [employer]. Pt and Chai brought I & O sheets in and I tallied them for the last 4 days. He has been drinking, often in excess of 5 liters of fluid. At least that is what he records, in oz, I converted. His u/o is typically 2 liters or greater and his Ileostomy output 700-1100 ml. I told him he could cut back on the fluids and he might sleep better. Follow up: one mos with Bernadette documented in this encounter Plan of Treatment Upcoming Encounters Date Type Specialty Care Team Description 02/18/2022 Infusion Hematology and Oncology 02/21/2022 Infusion Hematology and Oncology 02/24/2022 Appointment Hematology and Oncology 02/24/2022 Office Visit Hematology and Oncology Parviz Modi MD [facility] DR HEMATOLOGY/[place] [address] Miroslava Pelayo APRN [facility] HEMATOLOGY/[place] [address] 02/24/2022 Office Visit Wound Care 02/24/2022 Appointment Hematology and Oncology 02/26/2022 Office Visit Neurology Leni Bustamante MD [facility] NEUROLOGY DEPT. [place], [place] [address] (Wo rk) documented as of this encounter Visit Diagnoses Diagnosis Attention to ileostomy documented in this encounter Additional Health Concerns Infection Onset Date Last Indicated Resolved Time C. difficile 05/25/2021 05/25/2021 08/20/2021 5:29 AM EST documented as of this encounter Care Teams Drier Attendant Relationship Specialty Start Date End Date Beatriz Maurice PA PCP - General Family Medicine 05/06/21 [address] [place] [address] documented as of this encounter
--- OUTSIDE RECORDS SUMMARY | 2022-02-14 11:18 | XMS_ITS | Encounter Summary ---
:1960 Author Organization [facility] Address [facility] [address] [address] Care Team Providers Name Role Phone Beatriz Maurice Primary Care Provider Encounter Details Date Type Department Care Team Description 07/12/2021 Ancillary Procedure [place] [address] Social History Tobacco Use Types Packs/Day [...] MD [facility] DR HEMATOLOGY/[place] [address] Miroslava Pelayo APRN [facility] DR HEMATOLOGY/[place] [address] 02/24/2022 Office Visit Wound Care 02/24/2022 Appointment Hematology and Oncology 02/26/2022 Office Visit Neurology Leni Bustamante MD [facility] DR NEUROLOGY DEPT. [place], [place] [address] (Wo rk) documented as of this encounter Procedures Procedure Name Priority Date/Time Associated Diagnosis Comme nts REQUEST FOR 2ND Routine 07/12/2021 1:16 PM Result s for this READ MR SPINE EST procedure are in the results section. documented in this encounter Results Request for 2nd read MR Spine (07/12/2021 1:16 PM EST) Anatomical Region Laterality Modality SO Specimen (Source) Anatomical Location Collection Method / Collectio n Time Received Time / Laterality Volume Impressions 07/12/2021 2:16 PM EST No canal or foraminal stenosis. No focal lesion identified. Thank you for letting us participate in the care of this patient. ??If you are a health care provider and have any questi ons regarding this report, please contact the number below. ??For patients who have questions please contact the health critical care clinical nurse specialist that requested your imaging first. ? Narrative 07/12/2021 2:16 PM EST EXAMINATION: REQUEST FOR 2ND READ MR SPINE CLINICAL HISTORY: new diplopia; Sending Institution image in chart/image library; Date of exam [id number]; I believ e a reinterpretation of this exam may alter care of Patient. Yes; new diplopia TECHNIQUE: MR of the thoracic spine and MR of the lumbar spine performed prior to and following intravenous administrat ion of 20 mL dotarem. Study is performed at [facility] on 07/09/2021 COMPARISON: None FINDINGS: Thoracic spine: Overall thoracic alignme nt is normal. Marrow signal is diffusely relatively hypointense on T1-weighted im ages, no focal aggressive appearing osseous lesion. Cord signal is normal. T here is no canal or foraminal stenosis. There is no abnormal enhancement. Lumbar spine: Lumbar alignment is unrema rkable. No focal, aggressive appearing marrow lesion. The conus is normal in ap pearance, and terminates at L1. Visualized retroperitoneal structures ar e unremarkable. There is no mass or abnormal enhancement. There is minimal d isc degenerative change L3-4 with right foraminal annular fissure. No substantia l canal or foraminal stenosis. Procedure Note Nas Patino MD - 07/12/2021Format ting of this note might be different from the original. EXAMINATION: REQUEST FOR 2ND READ MR WILBERTO CHICAS CLINICAL HISTORY: new diplopia; Sending Institution image in chart/image library; Date of exam [id number]; I believ e a reinterpretation of this exam may alter care of Patient. Yes; new diplopia TECHNIQUE: MR of the thoracic spine and MR of the lumbar spine performed prior to and following intravenous administrat ion of 20 mL dotarem. Study is performed at [facility] on 07/09/2021 COMPARISON: None FINDINGS: Thoracic spine: Overall thoracic alignme nt is normal. Marrow signal is diffusely relatively hypointense on T1-weighted im ages, no focal aggressive appearing osseous lesion. Cord signal is normal. T here is no canal or foraminal stenosis. There is no abnormal enhancement. Lumbar spine: Lumbar alignment is unrema rkable. No focal, aggressive appearing marrow lesion. The conus is normal in ap pearance, and terminates at L1. Visualized retroperitoneal structures ar e unremarkable. There is no mass or abnormal enhancement. There is minimal d isc degenerative change L3-4 with right foraminal annular fissure. No substantia l canal or foraminal stenosis. IMPRESSION No canal or foraminal stenosis. No focal lesion identified. Thank you for letting us participate in the care of this patient. If you are a health care provider and have any questi ons regarding this report, please contact the number below. For patients w ho have questions please contact the health critical care clinical nurse specialist that requested your imaging first. Electronically signed by: Nas Patino MD, [facility] ([phone]), at 07/12/2021 2:16 PM Miguel Angel Archer MD IMG OUTSIDE INTERPRETATION O RDERABLES documented in this encounter Visit Diagnoses Not on filedocumented in this encounter Additional Health Concerns Infection Onset Date Last Indicated Resolved Time C. difficile 05/25/2021 05/25/2021 08/20/2021 5:29 AM EST documented as of this encounter Care Teams Printing Table Worker Relationship Specialty Start Date End Date Beatriz Maurice PA PCP - General Family Medicine 05/06/21 [address] [place] [address] documented as of this encounter
--- OUTSIDE RECORDS SUMMARY | 2022-02-14 11:18 | XMS_ITS | Encounter Summary ---
:1960 Author Organization [facility] Address [address] [place] [address] Care Team Providers Name Role Phone Beatriz Maurice Primary Care Provider Encounter Details Date Type Department Care Team Description 07/04/2021 Office Visit Hematology and Hayley Palmer, Acute m yeloid leukemia Oncology at [facility] FACILITY MAINTENANCE TECHNICIAN in remission [facility] [address] [place]Y-ONCOLOG [address] Y DEPT. [phone] [place], [place] [address] Social History Tobacco Use Types [...] documented as of this encounter Progress Notes Hayley Palmer, FACILITY MAINTENANCE TECHNICIAN - 07/04/2021 8:00 AM EST Herber presented for a bone marrow biopsy and aspirate. He reports the onset of right lower quad discomfort which he intermittently feels in his right lower back. Right now it's not too bad; just comes and goes. No fevers, chills. Ostomy is working well. No bloody, black tarry stool. On physical exam, the abd is soft, non-tender. Bowel sounds are normo-active. No discomfort on palpation of the right, lower back. I do not think his symptoms require any further work up at this time but he will continue to monitorand call with any progression of symptoms or any new clinical concerns Plan: Will proceed with marrow Herber will call if symptoms progress Wound clinic today Hayley Palmer APRN documented in this encounter Plan of Treatment Upcoming Encounters Date Type Specialty Care Team Description 02/18/2022 Infusion Hematology and Oncology 02/21/2022 Infusion Hematology and Oncology 02/24/2022 Appointment Hematology and Oncology 02/24/2022 Office Visit Hematology and Oncology Parviz Modi MD [facility] DR HEMATOLOGY/[place] [address] Miroslava Pelayo APRN [facility] DR HEMATOLOGY/[place] [address] 02/24/2022 Office Visit Wound Care 02/24/2022 Appointment Hematology and Oncology 02/26/2022 Office Visit Neurology Leni Bustamante MD [facility] NEUROLOGY DEPT. [place], [place] [address] (Wo rk) documented as of this encounter Visit Diagnoses Diagnosis Acute myeloid leukemia in remission documented in this encounter Additional Health Concerns Infection Onset Date Last Indicated Resolved Time C. difficile 05/25/2021 05/25/2021 08/20/2021 5:29 AM EST documented as of this encounter Care Teams Computer Typesetter Relationship Specialty Start Date End Date Beatriz Maurice PA PCP - General Family Medicine 05/06/21 [address] [place] [address] documented as of this encounter
--- OUTSIDE RECORDS SUMMARY | 2022-02-14 11:18 | XMS_ITS | Encounter Summary ---
:1960 Author Organization [facility] Address [facility] [place] [address] Care Team Providers Name Role Phone AjithBeatriz patricia Primary Care Provider Encounter Details Date Type Department Care Team Description 07/12/2021 Ophth Exam Ophthalmology at [facility] Jassi Sanon MD [facility] [place] [address] OPHTHALMOLOGY [phone] [place], [place] [address] (Wo rk) Social History Tobacco [...] [facility] DR HEMATOLOGY/[place] [address] Miroslava Pelayo APRN [facility] HEMATOLOGY/[place] [address] 02/24/2022 Office Visit Wound Care 02/24/2022 Appointment Hematology and Oncology 02/26/2022 Office Visit Neurology Leni Bustamante MD [facility] NEUROLOGY DEPT. [place], [place] [address] (Wo rk) documented as of this encounter Visit Diagnoses Not on filedocumented in this encounter Additional Health Concerns Infection Onset Date Last Indicated Resolved Time C. difficile 05/25/2021 05/25/2021 08/20/2021 5:29 AM EST documented as of this encounter Care Teams Coil Spring Assembler Relationship Specialty Start Date End Date Beatriz Maurice PA PCP - General Family Medicine 05/06/21 [address] [place] [address] documented as of this encounter
--- OUTSIDE RECORDS SUMMARY | 2022-02-14 11:18 | XMS_ITS | Encounter Summary ---
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 Modi and this RN. Herber is Day +53 from induction chemotherapy. Herber's 7&3induction was complicated by C-diff toxic megacolon requiring a colectomy. He is here today to discuss next steps. ?? We discussed the need for another bone marrow biopsy (last one 06/07/21) in preparation for his consolidation HiDac. ?? We discussed the 6 day hospitalization for HiDac. ?? We discussed the potential side effects of HiDac and how to remain infection free while he is home during his Simon. ?? Restage after 1 cycle of consolidation - if CR - admit for transplant. ?? Dr. Modi has chosen a 05/26 MUD donor who I will request to workup through the [facility]. A:Herber was very anxious and was having difficulty absorbing all the information provided, therefore,we did not discuss a general plan for transplant admission. P: BMBX 07/04 at 0745 in 3K infusion using local anesthetic only. He has been prescribed one dose ofAtivan to take upon arrival to . His SO Chai will provide transportation. 07/15/21 admit for HiDac documented in this encounter Plan of Treatment Upcoming Encounters Date Type Specialty Care Team Description 02/18/2022 Infusion Hematology and Oncology 02/21/2022 Infusion Hematology and Oncology 02/24/2022 Appointment Hematology and Oncology 02/24/2022 Office Visit Hematology and Oncology Parviz Modi MD [facility] DR HEMATOLOGY/[place] [address] Miroslava Pelayo APRN [facility] DR HEMATOLOGY/[place] [address] 02/24/2022 Office Visit Wound Care 02/24/2022 Appointment Hematology and Oncology 02/26/2022 Office Visit Neurology Leni Bustamante MD [facility] DR NEUROLOGY DEPT. [place], [place] [address] (Wo rk) documented as of this encounter Visit Diagnoses Diagnosis Acute myeloid leukemia not having achiev ed remission Stem cell transplant candidate documented in this encounter Additional Health Concerns Infection Onset Date Last Indicated Resolved Time C. difficile 05/25/2021 05/25/2021 08/20/2021 5:29 AM EST documented as of this encounter Care Teams Sap Administrator Relationship Specialty Start Date End Date Beatriz Maurice PA PCP - General Family Medicine 05/06/21 [address] [place] [address] documented as of this encounter
--- OUTSIDE RECORDS SUMMARY | 2022-02-14 11:18 | XMS_ITS | Encounter Summary ---
:1960 Author Organization [facility] [place] [address] Care Team Providers Name Role Phone Beatriz Maurice Primary Care Provider Encounter Details Date Type Department Care Team Description 06/30/2021 Orders [facility] Catie narvaez [place] [address] DEPT. [phone] [place], [place] [address] (Wo rk) Social History Tobacco [...] [facility] DR HEMATOLOGY/[place] [address] Miroslava Pelayo APRN [facility] HEMATOLOGY/[place] [address] 02/24/2022 Office Visit Wound Care 02/24/2022 Appointment Hematology and Oncology 02/26/2022 Office Visit Neurology Leni Bustamante MD [facility] NEUROLOGY DEPT. [place], [place] [address] (Wo rk) documented as of this encounter Visit Diagnoses Not on filedocumented in this encounter Additional Health Concerns Infection Onset Date Last Indicated Resolved Time C. difficile 05/25/2021 05/25/2021 08/20/2021 5:29 AM EST documented as of this encounter Care Teams Erp Project Manager Relationship Specialty Start Date End Date Beatriz Maurice PA PCP - General Family Medicine 05/06/21 [address] [place] [address] documented as of this encounter
--- OUTSIDE RECORDS SUMMARY | 2022-02-14 11:18 | XMS_ITS | Encounter Summary ---
:1960 Author Organization [facility] Address [facility] [address] [place] [address] Care Team Providers Name Role Phone Beatriz Maurice Primary Care Provider Encounter Details Date Type Department Care Team Description 07/02/2021 Orders Only Hematology and Oncology Parviz Modi MD at [facility] Catie narvaez HEMATOLOGY/[place] [address] [place] [address] [phone] (Wo rk) Social History Tobacco Use Types [...] MD [facility] DR HEMATOLOGY/[place] [address] Miroslava Pelayo APRN [facility] HEMATOLOGY/[place] [address] 02/24/2022 Office Visit Wound Care 02/24/2022 Appointment Hematology and Oncology 02/26/2022 Office Visit Neurology Leni Bustamante MD [facility] NEUROLOGY DEPT. [place], [place] [address] (Wo rk) documented as of this encounter Visit Diagnoses Not on filedocumented in this encounter Additional Health Concerns Infection Onset Date Last Indicated Resolved Time C. difficile 05/25/2021 05/25/2021 08/20/2021 5:29 AM EST documented as of this encounter Care Teams Benefits Technician Relationship Specialty Start Date End Date Beatriz Maurice PA PCP - General Family Medicine 05/06/21 [address] [place] [address] documented as of this encounter
--- OUTSIDE RECORDS SUMMARY | 2022-02-14 11:18 | XMS_ITS | Encounter Summary ---
:1960 Author Organization [facility] Address [facility] [address] [place] [address] Care Team Providers Name Role Phone Beatriz Maurice Primary Care Provider Reason for Referral Consultation (Routine) - Closed Specialty Diagnoses / Referred By Contact Referred To Contact Procedures Hematology and Diagnoses Acute myeloid leukemia not having achieved remission Parviz Modi Reed, Catherine M, Oncology [facility] R HEMATOLOGY/[place] [address] Referral ID Status Reason Start Date Expiration Date Visits V isits Requested Authorized [id number] Closed Consult, 07/01/2021 07/01/2022 1 1 Test & Treat Encounter Details Date Type Department Care Team Description 07/01/2021 Orders Only Hematology and Parviz Modi Acute myeloid Oncology at [facility] MD Mars leukemia not having [facility] [address] DR achieved remission Drive HEMATOLOGY/ONCOLOGY (Primary Dx) [place], [place] DEPT. [address] [place] [address] [phone] (Wo rk) Social History Tobacco Use Types [...] MD [facility] DR HEMATOLOGY/[place] [address] Miroslava Pelayo APRN [facility] HEMATOLOGY/[place] [address] 02/24/2022 Office Visit Wound Care 02/24/2022 Appointment Hematology and Oncology 02/26/2022 Office Visit Neurology Leni Bustamante MD [facility] ER DR NEUROLOGY DEPT. [place], [place] [address] (Wo rk) Scheduled Referrals Name Type Priority Associated Diagnoses Order S chedule Referral to Social Outpatient Referral Routine Acute myeloid O rdered: Work leukemia not having 07/01/20 21 achieved remission documented as of this encounter Visit Diagnoses Diagnosis Acute myeloid leukemia not having achiev ed remission - Primary documented in this encounter Additional Health Concerns Infection Onset Date Last Indicated Resolved Time C. difficile 05/25/2021 05/25/2021 08/20/2021 5:29 AM EST documented as of this encounter Care Teams Special Projects Coordinator Relationship Specialty Start Date End Date Beatriz Maurice PA PCP - General Family Medicine 05/06/21 [address] [place] [address] documented as of this encounter
--- OUTSIDE RECORDS SUMMARY | 2022-02-14 11:18 | XMS_ITS | Encounter Summary ---
:1960 Author Organization [facility] Address [address] [place] [address] Care Team Providers Name Role Phone Beatriz Maurice Primary Care Provider Encounter Details Date Type Department Care Team Description 07/07/2021 Ancillary Procedure Radiology Library at Aruna Maurice [facility] LEISA Butts [facility] [address] [place] [address] [place] [address] [phone] Social History Tobacco Use Types Packs/Day Years [...] [facility] [address] HEMATOLOGY/[place] [address] Miroslava Pelayo APRN [facility] [address] HEMATOLOGY/[place] [address] 02/24/2022 Office Visit Wound Care 02/24/2022 Appointment Hematology and Oncology 02/26/2022 Office Visit Neurology Leni Bustamante MD [facility] DR NEUROLOGY DEPT. [place], [place] [address] (Wo rk) documented as of this encounter Procedures Procedure Name Priority Date/Time Associated Diagnosis Comme nts FILM LIBRARY Routine 07/07/2021 12:00 AM Results for this STORAGE ONLY CT EST procedure ar e in SPINE the results section. documented in this encounter Results Film Library- Storage Only CT Spine (07/07/2021 12:00 AM EST) Specimen (Source) Anatomical Location Collection Method / Collectio n Time Received Time / Laterality Volume Narrative RAD - 07/09/2021 10:14 AM EST This exam is auto-finalizing. It's purpo se is for storage only. Beatriz DE LA FUENTE IMElaine FILM LIBRARY ORDERABLES Performing Organization Address City/State/ZIP Code Phon e Number [place], [place] documented in this encounter Visit Diagnoses Not on filedocumented in this encounter Additional Health Concerns Infection Onset Date Last Indicated Resolved Time C. difficile 05/25/2021 05/25/2021 08/20/2021 5:29 AM EST documented as of this encounter Care Teams Can Sealer Relationship Specialty Start Date End Date Beatriz Maurice PA PCP - General Family Medicine 05/06/21 [address] [place] [address] documented as of this encounter
--- OUTSIDE RECORDS SUMMARY | 2022-02-14 11:18 | XMS_ITS | Encounter Summary ---
:1960 Author Organization [facility] [place] [address] Care Team Providers Name Role Phone Beatriz Maurice Primary Care Provider Reason for Visit Reason Onset Date Comments New Medication Request 07/16/2021 Encounter Details Date Type Department Care Team Description 07/16/2021 Telephone Hematology and Oncology Anahi Winters [place] [address] Social History Tobacco Use Types Packs/Day [...] Telephone Encounter - Anahi Winters RN - 07/16/2021 12:50 PM EST Oral Chemotherapy Check Note 07/16/2021 Herber Iverson Jr., 1960 Prescriptions for oral chemotherapy were reviewed as follows: Oral Chemotherapy Order Gilteritinib: Order details: ?? Dose: 120 mg daily ?? Route: PO ?? Quantity to be dispensed #: 90 ?? Number of refills: 0 ?? Instructions: Take 3 tablets (120 mg) by mouth daily. Call clinic before starting medication. ?? Cycle number and length: N/A ?? Start date: Started inpatient 07/13/21 Plan of care compared to information in the medical record, including note from provider on 07/16/21. The prescription was found To be complete and accurate. It was e-prescribed to [facility]. documented in this encounter Plan of Treatment Upcoming Encounters Date Type Specialty Care Team Description 02/18/2022 Infusion Hematology and Oncology 02/21/2022 Infusion Hematology and Oncology 02/24/2022 Appointment Hematology and Oncology 02/24/2022 Office Visit Hematology and Oncology Parviz Modi MD [facility] DR HEMATOLOGY/[place] [address] Miroslava Pelayo APRN [facility] DR HEMATOLOGY/[place] [address] 02/24/2022 Office Visit Wound Care 02/24/2022 Appointment Hematology and Oncology 02/26/2022 Office Visit Neurology Leni Bustamante MD [facility] DR NEUROLOGY DEPT. [place], [place] [address] (Wo rk) documented as of this encounter Visit Diagnoses Not on filedocumented in this encounter Additional Health Concerns Infection Onset Date Last Indicated Resolved Time C. difficile 05/25/2021 05/25/2021 08/20/2021 5:29 AM EST documented as of this encounter Care Teams Estate Planner Relationship Specialty Start Date End Date Beatriz Maurice PA PCP - General Family Medicine 05/06/21 [address] [place] [address] documented as of this encounter
--- OUTSIDE RECORDS SUMMARY | 2022-02-14 11:18 | XMS_ITS | Encounter Summary ---
:1960 Author Organization [facility] Address [address] [place] [address] Care Team Providers Name Role Phone Beatriz Maurice Primary Care Provider Encounter Details Date Type Department Care Team Description 07/29/2021 Hospital Encounter Outpatient Surgery Radha Modi, [facility] HEMATOLOGY/ONCOLOGY Drive DEPT. [place], [place] [id number] [phone] Social History Tobacco Use Types Packs/Day Years [...] [facility] DR HEMATOLOGY/[place] [address] Miroslava Pelayo APRN [facility] HEMATOLOGY/[place] [address] 02/24/2022 Office Visit Wound Care 02/24/2022 Appointment Hematology and Oncology 02/26/2022 Office Visit Neurology Leni Bustamante MD [facility] ER NEUROLOGY DEPT. [place], [place] [address] (Wo rk) documented as of this encounter Procedures Procedure Name Priority Date/Time Associated Diagnosis Comme nts FLUID REVIEW REPORT Routine 07/29/2021 4:16 PM Re sults for this EST procedure are i n the results section. FLUID REVIEW REPORT Routine 07/16/2021 3:11 PM Re sults for this EST procedure are i n the results section. documented in this encounter Results Fluid Review Report (07/29/2021 4:16 PM EST) Component Value Ref Test Analysis Performed At [facility] Range Method Time Signature Fluid Review [id number] ? Location: [facility] The signing pathologist has (i) examined the relevant preparation(s) for the MEMORIAL specimen(s) and (ii) rendered or confirmed the diagnosis(es) . HOSPITAL LABORATORY . ?Dru w Cytometry DIAGNOSIS Flow cytometric diagnosis: No Blasts detected. Electronically signed by: ?Chuyita STEPHENSON, Eliseo Verified: ??07/30/2021 15:46 ??Hematopathologist Performed at: ??-[facility] Dept. of Pathology, [place], [place] DISCUSSION Blasts based on CD45 express ion and orthogonal light scatter, CD34, CD117 expression are not increased. Flow analysis is an ancillar y study. A definite diagnosis requires correlation with the morphologic features of this process and if necessary, correlation with other ancillary studies like immu nohistochemistry, enzyme cytochemistry and/or cyto/ molecular genetics. This test was developed and its performance veronica acteristics determined by the Clinical Flow Cytometry Lab oratory at [facility]. It has not been cleared or approve [...] complexity clinic al laboratory testing. SPECIMEN PROCESSING [id number] Cells for immunophenotypic a nalysis were derived from CSF. CD45 vs side scatter gating was utilized to identify a CD45 dim analysis region that comprises approximately 0% of all cells. The following markers were a ssessed: CD3, CD13, CD14, CD19, CD34, CD45, CD56, CD117, and HLA-DR. CLINICAL INFORMATION aml ? Fl uid Review DIAGNOSIS CEREBROSPINAL FLUID: No ??malignant cells are seen on the cytocentrifuge preparat ion. Electronically signed by: ?Eliseo Boogie MD Verified: ??07/29/2021 18:13 ??Hematopathologist Performed at: ??-[facility] Dept. of Pathology, [place], [place] DISCUSSION flow studies pending ADDITIONAL STUDIES WBC/uL: 1 . ADDITIONAL STUDIES RBC/uL: 51 26 cells counted on cytocentrifuge preparation. Small and intermediate sized mature lymphocytes and macrophages also seen. These are present in a background with erythrocytes. CLINICAL INFORMATION Specimen: ? 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 LLS Specimen (Source) Anatomical Collection Method Collection Time Re ceived Time Location / / Volume Laterality 07/29/2021 4:16 PM EST Awais Li MD PATHOLOGY/CYTOLOGY ORDERABLE S Performing Organization Address City/[facility]/[place]IP [place] [address] Fluid Review Report (07/16/2021 3:11 PM EST) Component Value Ref Test Analysis Performed At [facility] gist Range Method Time Signature Fluid Review [id number] ? Location: [facility] [place] The signing pathologist has (i) examined the relevant preparation(s) for the MEMORIAL specimen(s) and (ii) rendered or confirmed the diagnosis(es) . HOSPITAL LABORATORY . ? Fl uid Review DIAGNOSIS CEREBROSPINAL FLUID: Increased abnormal blast population is present (see discussi on) Electronically signed by: ?Eliseo Boogei MD Verified: ??07/17/2021 17:41 ??Hematopathologist Performed at: ??-[facility] Dept. of Pathology, [place], [place] DISCUSSION Prior flow cytometric studie s ([id number]; 07/12/21) confirmed a myeloid lineage for the blast population, compatible with the morphologic f indings. ADDITIONAL STUDIES WBC/uL: 85 RBC/uL: 13 200 cells counted on cytocentrifuge preparation. Intermediate-sized monocytoid blast cells are seen with occa sional scant intracytoplasmic granularit y (16%). Small mature lymphocytes and macrophages also seen. CLINICAL INFORMATION Specimen: ? 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 LLS Specimen (Source) Anatomical Collection Method Collection Time Re ceived Time Location / / Volume Laterality 07/16/2021 3:11 PM EST Kostas Quiros MD PATHOLOGY/CYTOLOGY ORDERABLE S Performing Organization Address City/[facility]/[place] [address] documented in this encounter [...] documented as of this encounter Care Teams Strategy Manager Relationship Specialty Start Date End Date Beatriz Maurice PA PCP - General Family Medicine 05/06/21 [address] [place] [address] documented as of this encounter
--- OUTSIDE RECORDS SUMMARY | 2022-02-14 11:18 | XMS_ITS | Encounter Summary ---
:1960 Author Organization [facility] Address [address] [place] [address] Care Team Providers Name Role Phone Beatriz Maurice Primary Care Provider Encounter Details Date Type Department Care Team Description 07/01/2021 Hospital Encounter Hematology and Acute m yeloid leukemia not having achieved remission; Oncology at [facility] Anemia, unspecified type; [facility] Thrombocy topenia; Drive Leukocytosis, unspecified ty pe; [place] [address] H/O Clostridium difficile in fection; [phone]ena; S/P partial res ection of colon; Acute leukemia not having achieved remission Social History Tobacco Use Types Packs/Day [...] Visit Hematology and Oncology Parviz Modi MD [facility] [address] HEMATOLOGY/[place] [address] Miroslava Pelayo APRN [facility] DR HEMATOLOGY/[place] [address] 02/24/2022 Office Visit Wound Care 02/24/2022 Appointment Hematology and Oncology 02/26/2022 Office Visit Neurology Leni Bustamante MD [facility] [address] NEUROLOGY DEPT. [place], [place] [address] (Wo rk) Scheduled Orders Name Type Priority Associated Diagnoses Order S chedule Comprehensive metabolic Lab Routine Acute leukemia no t 1 Occurrences starting panel (non-fasting) having achieved 07/01 until remission 07/01/2021 CBC (with Diff) Lab Routine Acute leukemia not 1 Occu rrences starting having achieved 07/01/2021 u ntil remission 07/01/2021 documented as of this encounter Procedures Procedure Name Priority Date/Time Associated Diagnosis Comme nts TYPE AND SCREEN STAT 07/01/2021 9:08 AM Result s for this VALIDITY EST procedure are i n the results section. ABORH RECHECK STATUS STAT 07/01/2021 9:08 AM R esults for this EST procedure are i n the results section. ABO/RH TYPING STAT 07/01/2021 9:08 AM Acute myeloid Results for this EST leukemia not having procedur e are in achieved remissi on the results Anemia, unspecified section. 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 ce S/P partial resection of colon ANTIBODY SCREEN STAT 07/01/2021 9:08 AM Acute myeloid Resul ts for this EST leukemia not having procedur e are in achieved remissi on the results Anemia, unspecified section. 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 ce S/P partial resection of colon HC ANTIBODY STAT 07/01/2021 9:08 AM Acute myeloid DETECTION,CAPTURE-R EST leukemia not having achieved remissi on Anemia, unspecified 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 ce S/P partial resection of colon HC URIC ACID, SERUM Routine 07/01/2021 9:08 AM Acute leukemia not Results for this EST having achieved procedure ar e in remission the results section. HC PHOSPHORUS, SERUM Routine 07/01/2021 9:08 AM Acute leukemia not Results for this EST having achieved procedure ar e in remission the results section. HC MAGNESIUM, SERUM Routine 07/01/2021 9:08 AM Acute leukemia not Results for this EST having achieved procedure ar e in remission the results section. HC VENIPUNCTURE Routine 07/01/2021 9:08 AM Acute myeloid Resul ts for this EST leukemia not having procedur e are in achieved remissi on the results Anemia, unspecified section. 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 ce S/P partial resection of colon documented in this encounter Results Type and Screen Validity (07/01/2021 9:08 AM EST) [facility] Method Time Signature T&S only valid [facility] at [facility] Comment: This Type and Screen result is only valid at the [facility] Hospital Specimen Anatomical Collection Method Collection Time Receive d Time (Source) Location / / Volume Laterality Blood 07/01/2021 9:08 AM 9:19 EST AM EST Resulting Agency Comment Spec In Lab Parviz Modi MD BLOOD BANK ORDERABLES Performing Organization Address City/State/[place] [address] ABORH Recheck Status (07/01/2021 9:08 AM EST) [facility] Method Time Signature ABORH Type Completed [facility] LABORATORY Specimen Anatomical Collection Method Collection Time Receive d Time (Source) Location / / Volume Laterality Blood 07/01/2021 9:08 AM 9:19 EST AM EST Resulting Agency Comment Spec In Lab Parviz Modi MD BLOOD BANK ORDERABLES Performing Organization Address City/[facility]/[place] [address] Antibody screen (07/01/2021 9:08 AM EST) [facility] Method Time Signature Ab Screen Negative [facility] LABORATORY Expires at 07/04/2021 [facility] 235 on: [facility] Specimen Anatomical Collection Method Collection Time Receive d Time (Source) Location / / Volume Laterality Blood 07/01/2021 9:08 AM 9:19 EST AM EST Resulting Agency Comment Spec In Lab Parviz Modi MD BLOOD BANK ORDERABLES Performing Organization Address City/[facility]/[place] [address] ABO/Rh Typing (07/01/2021 9:08 AM EST) P athologist Signature ABORh Type O Pos [facility] LABORATORY Specimen Anatomical Collection Method Collection Time Receive d Time (Source) Location / / Volume Laterality Blood 07/01/2021 9:08 AM 9:19 EST AM EST Resulting Agency Comment Spec In Lab Parviz Modi MD BLOOD BANK ORDERABLES Performing Organization Address City/[facility]/[place] [address] (ABNORMAL) Magnesium (07/01/2021 9:08 AM EST) athologist Signature Magnesium 0.62 (L) 0.69 - 1.07 [facility] [place] mmol/L [facility] Specimen Anatomical Collection Method Collection Time Receive d Time (Source) Location / / Volume Laterality Blood 07/01/2021 9:08 AM 9:23 EST AM EST Resulting Agency Comment Spec In Lab Parviz Modi MD CHEMISTRY ORDERABLES Performing Organization Address City/[facility]/ZIP Code Phon e Number [address] (ABNORMAL) Phosphorus (07/01/2021 9:08 AM EST) athologist Signature Phosphorus 4.6 (H) 2.5 - 4.5 [facility] [place] mg/dL [facility] Specimen Anatomical Collection Method Collection Time Receive d Time (Source) Location / / Volume Laterality Blood 07/01/2021 9:08 AM 9:23 EST AM EST Resulting Agency Comment Spec In Lab Parviz Modi MD CHEMISTRY ORDERABLES Performing Organization Address City/[facility]/[place] [address] Uric acid (07/01/2021 9:08 AM EST) athologist Signature Uric Acid 6.9 3.5 - 8.5 [facility] [place] mg/dL [facility] Specimen Anatomical Collection Method Collection Time Receive d Time (Source) Location / / Volume Laterality Blood 07/01/2021 9:08 AM 9:23 EST AM EST Resulting Agency Comment Spec In Lab Parviz Modi MD CHEMISTRY ORDERABLES Performing Organization Address City/[facility]/ZIP [facility] [place] [address] (ABNORMAL) Comprehensive metabolic panel (non-fasting) (07/01/2021 9:08 AM EST) athologist Signature Glucose Lvl 81 65 - 199 JIA ARASELI mg/dL [facility] Comment: Diabetes: >=200 mg/dL plus symp toms BUN 26 (H) 10 - 20 mg/dL [facility] Creatinine 1.20 0.80 - 1.50 mg/dL [facility] Sodium 137 135 - 145 mmol/L [facility] Potassium 4.8 3.5 - 5.0 mmol/L [facility] Comment: Please note: ??Patients with WBC >100,00 0 may have falsely elevated Potassium levels. ??For accurate Potassium quantif ication in these patients send serum separator tube (gold top) for subsequent determinations. ??Contact the Clinical Chemistry Laboratory if there are any qu estions. Chloride 103 98 - 107 mmol/L [facility] CO2 22 22 - 31 mmol/L [facility] Anion Gap 12 5 - 15 mmol/L [facility] Calcium 10.1 8.5 - 10.5 mg/dL [facility] Total Protein 8.3 (H) 6.1 - 8.0 g/dL [facility] Albumin 3.7 3.2 - 5.2 g/dL [facility] AST 20 0 - 39 unit/L [facility] ALT 26 0 - 55 unit/L [facility] Alk Phos 109 40 - 130 unit/L [facility] Total Bilirubin 0.3 0.2 - 1.3 mg/dL [facility] Estimated GFR 65 >=60 mL/min/1.73 m?? [facility] Comment: This patient? s estimated glomerular filtration rate (eGFR) is between 65 mL/min/1.73 m2 (patients with less muscl e [...] Location / / Volume Laterality Blood 07/01/2021 9:08 AM 9:23 EST AM EST Resulting Agency Comment Spec In Lab Parviz Modi MD CHEMISTRY ORDERABLES Performing Organization Address City/State/[place] [address] documented in this encounter Visit Diagnoses Diagnosis Acute myeloid leukemia not having achiev ed remission Anemia, unspecified type Thrombocytopenia Thrombocytopenia, unspecified Leukocytosis, unspecified type H/O Clostridium difficile infection Personal history of other infectious and parasitic disease 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 status S/P partial resection of colon Other postprocedural status Acute leukemia not having achieved remis sharon Acute leukemia of unspecified cell type, without mention of having achieved remission documented in this encounter Additional Health Concerns Infection Onset Date Last Indicated Resolved Time C. difficile 05/25/2021 05/25/2021 08/20/2021 5:29 AM EST documented as of this encounter Care Teams Hand Finisher Relationship Specialty Start Date End Date Beatriz Maurice PA PCP - General Family Medicine 05/06/21 [address] [place] [address] documented as of this encounter
--- OUTSIDE RECORDS SUMMARY | 2022-02-14 11:18 | XMS_ITS | Encounter Summary ---
:1960 Author Organization [facility] [place] [address] Care Team Providers Name Role Phone Beatriz Maurice Primary Care Provider Reason for Visit Reason Comments Follow-up Encounter Details Date Type Department Care Team Description 06/24/2021 Office Visit Hematology and Parviz Modi Acute myeloid leukemia not having achieved remission (Primary Dx); Oncology at [facility] MD Mars Anemia, unspecified type; [facility] [address] DR Thrombocytopenia; [facility] HEMATOLOGY/ONCOLOGY Leukocytosis, unspecified ty pe; [place], [place] DEPT. H/O Clostridium difficile infection; [id number] [place] [address]; [phone] (Wo rk) S/P partial resection of colon Social History Tobacco Use Types [...] Sign Reading Time Taken Comments Blood Pressure 117/80 06/24/2021 1:02 PM EST Pulse 117 06/24/2021 1:02 PM EST Temperature 36.4 ??C (97.5 ??F) 06/24/2021 1:02 PM EST Respiratory Rate 17 06/24/2021 1:02 PM EST Oxygen Saturation 98% 06/24/2021 1:02 PM EST Inhaled Oxygen Concentration - - Weight 98.4 kg (217 lb) 06/24/2021 1:02 PM EST Height 177.6 cm (5' 9.92) 06/24/2021 1:02 PM EST Body Mass Index 31.21 06/24/2021 1:02 PM EST documented in this encounter Progress Notes Parviz Modi MD - 06/24/2021 1:15 PM EST HEMATOLOGY/BMT CONSULTATION VISIT NOTE CHIEF COMPLAINT: Herber Iverson Jr. is a 60 y.o. male referred by Dr. Beatriz Maurice for evaluation of leukemia. Data Review (From Recent Hospital discharge summary and the EMR) Admitted to [facility] 04/29/21 for leukocytosus. Discharged 04/30/21. 04/30/21 [...] with NTLM and 3.5% blasts c/w remission. ORIGINAL HISTORY OF PRESENT ILLNESS Herber Iverson [...] admission for induction chemotherapy for newly diagnosed AML. Todayis day +47 of 7&3 induction therapy. Says it is great to be back home. Catching up on his sleep.Has been using his walker a little less - feeling stronger. Eating and appetite are improving. Stillcan't eat sweets. No N/V/D/C. Colostomy is working well - feels he is still learning how to use it bu t no major problems. No F/C/S. 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 Social - has a girlfriend and his [...] leukemia C95.00 ??? Clostridium difficile colitis A04.72 MEDICATIONS Current Outpatient Medications Medication Instructions ??? famotidine (PEPCID) 40 mg, Oral, DAILY ??? flecainide (TAMBOCOR) 50 mg, Oral, 2 TIMES DAILY ??? loperamide (IMODIUM A-D) 2 mg, Oral, 2 TIMES DAILY PRN ??? metoprolol tartrate (LOPRESSOR) 12.5 mg, Oral, EVERY 6 HOURS ALLERGIES/ADR Allergies Allergen Reactions ??? Other [Unclassified Drug] Other (See Comments) Artificial Sweetners-lightheadedness, dizziness ??? Metoprolol heart skips a beat PHYSICAL EXAM VITAL SIGNS: Blood pressure 117/80, pulse (!) 117, temperature 36.4 ??C (97.5 ??F), temperature source Temporal, resp. rate 17, height 177.6 cm (5' 9.92), weight 98.4 kg (217 lb), SpO2 98 %. GENERAL: Herber Iverson Jr. is a mildly chronically ill-appearing 60 y.o. male in no acute distress. ENT: [...] Lvl 92 65 - 199 mg/dL BUN 20 10 - 20 mg/dL Creatinine 1.01 0.80 - 1.50 mg/dL Sodium 137 135 - 145 mmol/L Potassium 4.2 3.5 - 5.0 mmol/L Chloride 103 98 - 107 mmol/L CO2 22 22 - 31 mmol/L Anion Gap 12 5 - 15 mmol/L Calcium 9.7 8.5 - 10.5 mg/dL Total Protein 8.5 (H) 6.1 - 8.0 g/dL Albumin 3.7 3.2 - 5.2 g/dL AST 22 0 - 39 unit/L ALT 38 0 - 55 unit/L Alk Phos 177 (H) 40 - 130 unit/L Total Bilirubin 0.3 0.2 - 1.3 mg/dL Estimated GFR 80 >=60 mL/min/1.73 m?? Hemogram Result Value Ref Range WBC 14.4 (H) 4.0 - 9.5 x10(3)/mcL RBC 2.88 (L) 4.58 - 5.54 x10(6)/mcL Hemoglobin 9.3 (L) 13.7 - 16.5 g/dL Hematocrit 28.6 (L) 40.5 - 48.5 % MCV 99.3 (H) 82.9 - 93.1 fL MCH 32.3 (H) 27.5 - 32.1 pg MCHC 32.5 32.0 - 35.7 g/dL Platelets 230 145 - 357 x10(3)/mcL RDWSD 73.9 (H) 36.0 - 45.0 fL RDWCV 20.6 (H) 11.4 - 13.8 % MPV 10.8 7.6 - 12.9 fL nRBC % Auto 0.0 % nRBC Abs Auto 0.000 0.000 - 0.000 x10(3)/mcL Differential, Automated Result Value Ref Range Neutrophils % 72.4 % Neutr Abs (ANC) 10.44 (H) 1.70 - 6.10 x10(3)/mcL Lymphocytes % 9.3 % Lymphocytes Abs 1.3 0.9 - 3.2 x10(3)/mcL Monocytes % 5.9 % Monocyte Abs 0.8 0.3 - 0.9 x10(3)/mcL Eosinophils % 3.0 % Eosinophils Abs 0.4 0.0 - 0.4 x10(3)/mcL Basophils % 0.7 % Basophils Abs 0.1 0.0 - 0.1 x10(3)/mcL Immature Gran % 8.70 % Zara Gran Abs 1.26 (H) 0.00 - 0.04 x10(3)/mcL Antibody screen Result Value Ref Range Expires at 2359 on: 06/27/2021 ABORH Recheck Status Result Value Ref Range ABORH Type Recheck Completed Scan, Peripheral Blood Result Value Ref Range Plat Estimate Normal RBC Morphology Abnormal Macrocytes 1-5 /HPF Ovalocytes 1-5 /HPF Giant Platelets Less than 1 /HPF RADIOLOGY - None ASSESSMENT & PLANS [...] RN, BMT Coordinator. 5. Summary of Plans --RTC 1 week for f/u and plan for consolidation and allo HSCT. --Herber to call any time if not feeling well or questions or concerns arise.. Parviz Modi MD Section of Hematology [facility] documented in this encounter Plan of Treatment Upcoming Encounters Date Type Specialty Care Team Description 02/18/2022 Infusion Hematology and Oncology 02/21/2022 Infusion Hematology and Oncology 02/24/2022 Appointment Hematology and Oncology 02/24/2022 Office Visit Hematology and Oncology Parviz Modi MD [facility] HEMATOLOGY/[place] [address] Miroslava Pelayo, LATIN TEACHER [facility] DR HEMATOLOGY/[place] [address] 02/24/2022 Office Visit Wound Care 02/24/2022 Appointment Hematology and Oncology 02/26/2022 Office Visit Neurology Leni Bustamante MD [facility] NEUROLOGY DEPT. [place], [place] [address] (Wo rk) documented as of this encounter Visit Diagnoses Diagnosis Acute myeloid leukemia not having achiev ed remission - Primary Anemia, unspecified type Thrombocytopenia Thrombocytopenia, unspecified Leukocytosis, unspecified type H/O Clostridium difficile infection Personal history of other infectious and parasitic disease 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 status S/P partial resection of colon Other postprocedural status documented in this encounter Additional Health Concerns Infection Onset Date Last Indicated Resolved Time C. difficile 05/25/2021 05/25/2021 08/20/2021 5:29 AM EST documented as of this encounter Care Teams Bolt Man Relationship Specialty Start Date End Date Beatriz Maurice PA PCP - General Family Medicine 05/06/21 [address] [place] [address] documented as of this encounter
--- OUTSIDE RECORDS SUMMARY | 2022-02-14 11:18 | XMS_ITS | Encounter Summary ---
:1960 Author Organization [facility] Address [address] [facility] [address] [address] Care Team Providers Name Role Phone Beatriz Maurice Primary Care Provider Encounter Details Date Type Department Care Team Description 07/07/2021 Ancillary Procedure Radiology Library at Aruna Maurice [facility] LEISA Butts [facility] [address] [place] [address] [place] [address] [phone] Social History Tobacco Use Types Packs/Day Years [...] [facility] DR HEMATOLOGY/[place] [address] Miroslava Pelayo APRN [facility] DR HEMATOLOGY/[place] [address] 02/24/2022 Office Visit Wound Care 02/24/2022 Appointment Hematology and Oncology 02/26/2022 Office Visit Neurology Leni Bustamante MD [facility] DR NEUROLOGY DEPT. [place], [place] [address] (Wo rk) documented as of this encounter Procedures Procedure Name Priority Date/Time Associated Diagnosis Comme nts FILM LIBRARY Routine 07/07/2021 12:05 AM Results for this STORAGE ONLY CT EST procedure ar e in HEAD the results section. documented in this encounter Results Film Library- Storage Only CT Head (07/07/2021 12:05 AM EST) Specimen (Source) Anatomical Location Collection Method / Collectio n Time Received Time / Laterality Volume Narrative RAD - 07/09/2021 10:15 AM EST This exam is auto-finalizing. It's purpo se is for storage only. Beatriz DE LA FUENTE IMElaine FILM LIBRARY ORDERABLES Performing Organization Address City/State/ZIP Code Phon e Number [place], [place] documented in this encounter Visit Diagnoses Not on filedocumented in this encounter Additional Health Concerns Infection Onset Date Last Indicated Resolved Time C. difficile 05/25/2021 05/25/2021 08/20/2021 5:29 AM EST documented as of this encounter Care Teams Catalog Librarian Relationship Specialty Start Date End Date Beatriz Maurice PA PCP - General Family Medicine 05/06/21 [address] [place] [address] documented as of this encounter
--- OUTSIDE RECORDS SUMMARY | 2022-02-14 11:18 | XMS_ITS | Encounter Summary ---
:1960 [place] [address] Care Team Providers Name Role Phone AjithBeatriz patricia Primary Care Provider Encounter Details Date Type Department Care Team Description 07/02/2021 Telephone Outpatient Surgery Center Maco Drummond, [place] [address] Social History Tobacco Use Types Packs/Day [...] this encounter Miscellaneous Notes Telephone Encounter - Robert Barnard RN - 07/02/2021 8:45 AM EST Telephone call with Herber Iverson Jr Reviewed [id number] Telephone Script per protocol with patient. All questions and concerns addressed. He wishes to proceed with participation in the trial. He is aware consent will be signed the day of his procedure. documented in this encounter Plan of Treatment Upcoming Encounters Date Type Specialty Care Team Description 02/18/2022 Infusion Hematology and Oncology 02/21/2022 Infusion Hematology and Oncology 02/24/2022 Appointment Hematology and Oncology 02/24/2022 Office Visit Hematology and Oncology Parviz Modi MD [facility] DR HEMATOLOGY/[place] [address] Miroslava Pelayo APRN [facility] DR HEMATOLOGY/[place] [address] 02/24/2022 Office Visit Wound Care 02/24/2022 Appointment Hematology and Oncology 02/26/2022 Office Visit Neurology Leni Bustamante MD [facility] NEUROLOGY DEPT. [place], [place] [address] (Wo rk) documented as of this encounter Visit Diagnoses Not on filedocumented in this encounter Additional Health Concerns Infection Onset Date Last Indicated Resolved Time C. difficile 05/25/2021 05/25/2021 08/20/2021 5:29 AM EST documented as of this encounter Care Teams Scuba Instructor Relationship Specialty Start Date End Date Beatriz Maurice PA PCP - General Family Medicine 05/06/21 [address] [place] [address] documented as of this encounter
--- OUTSIDE RECORDS SUMMARY | 2022-02-14 11:18 | XMS_ITS | Encounter Summary ---
:1960 Author Organization [facility] Address [facility] [place] [address] Care Team Providers Name Role Phone Beatriz Maurice Primary Care Provider Encounter Details Date Type Department Care Team Description 07/05/2021 Office Visit Hematology and Radha Osullivan MD [facility] DR HEMATOLOGY/[place] [address] Acute myeloid leukemia in remission; Oncology at [facility] Miroslava Pelayo, [facility] DR HEMATOLOGY/[place] [address] Acute midline low back pain without scia lindsey [facility] Hayley Palmer, [facility] DR HEMATOLOGY[place] [address] [place] [id number] Social History Tobacco Use Types Packs/Day Years [...] Sign Reading Time Taken Comments Blood Pressure 140/98 07/05/2021 8:18 AM EST Pulse 90 07/05/2021 8:18 AM EST Temperature 36.6 ??C (97.9 ??F) 07/05/2021 8:18 AM EST Respiratory Rate 18 07/05/2021 8:18 AM EST Oxygen Saturation 99% 07/05/2021 8:18 AM EST Inhaled Oxygen Concentration - - Weight - - Height - - Body Mass Index - - documented in this encounter Progress Notes Parviz Osullivan MD - 07/05/2021 8:30 AM EST Brief Clinic Note Ms. Spencer APRN and I interviewed and examined Herber today for his c/o back pain near the site of his bone marrow bx performed yesterday. At the time of his appointment he said the pain was at a 1-2/10 level - much less than it had been overnight. The pain did not radiate from the site of the biopsyand did not feel like a muscle spasm or cramp. No numbness or weakness in his lower extremities. I was unable to elicit the pain with palpation near the site of his pain and there was no evidence of bleeding, fluctuance, inflammation or of a subcutaneous blood clot. The pain was not reproduced by straight leg raises or other manipulations or movements during his exam. At this point, no clear etiology for the pain. We recommended motrin up to 600 mg po Q8 hours and gave him a prescription for oxycodone should the severe pain recur and asked him to call us if it recurred or failed to improve. PARVIZ OSULLIVAN MD Section of Hematology [facility] Hayley Palmer APRN - 07/05/2021 8:30 AM EST Herber presents today urgently for pain at his bone marrow site which was performed yesterday. He leftfollowing yesterday's marrow which was non- traumatic, feeling well. He woke up during the night withsevere pain in his right back; non-radiating. The pain waxes and wanes. He said it is worse than when he severed his achilles tendon. On exam, he looks well. The biopsy site is covered by tegaderm with a scant amount of drainage. No ongoing bleeding from the site. No ecchymosis at the site. There is no pain upon palpation of the marrow site. Assessment and plan: 60 year male who presents urgently today with pain around the site of his bone marrow biopsy which was performed yesterday. The pain has resolved at this time so we will hold off on any scanning. Plan We will give Herber #10 oxycodone to cover him over the weekend in the event that the pain returns He will use this in combination with ibuprofen (platelet count stable) Herber understands to call over the weekend if the pain returns and he is unable to manage it Dr. Carmona will discuss results of bone marrow biopsy with Herber when they become available Hayley Palmer APRN documented in this encounter Plan of Treatment Upcoming Encounters Date Type Specialty Care Team Description 02/18/2022 Infusion Hematology and Oncology 02/21/2022 Infusion Hematology and Oncology 02/24/2022 Appointment Hematology and Oncology 02/24/2022 Office Visit Hematology and Oncology Parviz Osullivan MD [facility] DR HEMATOLOGY/[place] [address] Miroslava Pelayo APRN [facility] HEMATOLOGY/[place] [address] 02/24/2022 Office Visit Wound Care 02/24/2022 Appointment Hematology and Oncology 02/26/2022 Office Visit Neurology Leni Bustamante MD [facility] NEUROLOGY DEPT. [place], [place] [address] (Wo rk) documented as of this encounter Visit Diagnoses Diagnosis Acute myeloid leukemia in remission Acute midline low back pain without scia lindsey documented in this encounter Additional Health Concerns Infection Onset Date Last Indicated Resolved Time C. difficile 05/25/2021 05/25/2021 08/20/2021 5:29 AM EST documented as of this encounter Care Teams Veterinary Nurse Relationship Specialty Start Date End Date Beatriz Maurice PA PCP - General Family Medicine 05/06/21 [address] [place] [address] documented as of this encounter
--- OUTSIDE RECORDS SUMMARY | 2022-02-14 11:18 | XMS_ITS | Encounter Summary ---
:1960 Author Organization [facility] [place] [address] Care Team Providers Name Role Phone Beatriz Maurice Primary Care Provider Encounter Details Date Type Department Care Team Description 07/30/2021 Orders Only Hematology and Oncology at Kj Wilson MD [facility] [place] [address] [place] [address] [phone] Social History Tobacco Use Types Packs/Day Years [...] Parviz Modi MD [facility] DR HEMATOLOGY/[place] [address] Miroslava Pelayo APRN [facility] HEMATOLOGY/[place] [address] 02/24/2022 Office Visit Wound Care 02/24/2022 Appointment Hematology and Oncology 02/26/2022 Office Visit Neurology Leni Bustamante MD [facility] NEUROLOGY DEPT. [place], [place] [address] (Wo rk) documented as of this encounter Visit Diagnoses Not on filedocumented in this encounter Additional Health Concerns Infection Onset Date Last Indicated Resolved Time C. difficile 05/25/2021 05/25/2021 08/20/2021 5:29 AM EST documented as of this encounter Care Teams Design Technology Teacher Relationship Specialty Start Date End Date Beatriz Maurice PA PCP - General Family Medicine 05/06/21 [address] [place] [address] documented as of this encounter
--- OUTSIDE RECORDS SUMMARY | 2022-02-14 11:18 | XMS_ITS | Encounter Summary ---
:1960 Author Organization [facility] Address [facility] [place] [address] Care Team Providers Name Role Phone Beatriz Maurice Primary Care Provider Reason for Visit Reason Comments Follow-up Encounter Details Date Type Department Care Team Description 07/01/2021 Office Visit Hematology and Radha Modi MD [facility] DR HEMATOLOGY/[place] [address]; Oncology at [facility] Miroslava Pelayo RECOVERY OPERATOR HELPER [facility] DR HEMATOLOGY/[place] [address] Acute leukemia in remission; [facility] Hayley Palmer, [facility] DR HEMATOLOGY[place] [address] H/O Clostridium difficile infection; Drive Anemia, unspecified type; [place], [place] Weakness acquir ed in ICU [id number] Social History Tobacco Use Types Packs/Day [...] Sign Reading Time Taken Comments Blood Pressure 152/96 07/01/2021 9:14 AM EST Pulse 100 07/01/2021 9:14 AM EST Temperature 36.3 ??C (97.3 ??F) 07/01/2021 9:14 AM EST Respiratory Rate 17 07/01/2021 9:14 AM EST Oxygen Saturation 98% 07/01/2021 9:14 AM EST Inhaled Oxygen Concentration - - Weight 100.7 kg (222 lb) 07/01/2021 9:14 AM EST Height 177.5 cm (5' 9.88) 07/01/2021 9:14 AM EST Body Mass Index 31.96 07/01/2021 9:14 AM EST documented in this encounter Progress Notes Hayley Palmer, RECOVERY OPERATOR HELPER - 07/01/2021 9:15 AM EST HEMATOLOGY/BMT CONSULTATION VISIT NOTE CHIEF COMPLAINT: Herber Iverson Jr. is a 60 y.o. male referred by Dr. Beatriz Maurice for evaluation of leukemia. Data Review (From Recent Hospital discharge summary and the EMR) Admitted to [facility] 04/29/21 for leukocytosus. Discharged 04/30/21. [...] abnormal counts and he was admitted to [facility]. Other than fatigue has had no fevers, chills or drenching sweats. Has lost a few lbs - <10. Appetite has been down recently. No bleeding or bruising. Was very actived when younger - played a lot of sports into his 40's. INTERIM HPI Herber is seen in f/u after recent admission for induction chemotherapy for newly diagnosed AML. He isaccompanied by his girlfriend, Chai. Today is day +54 of 7&3 induction therapy. Says it is great to be back home. He continues to do well at home. Uses his walker as his balance has not recovered yet. Ostomy is working well. He has an appointment with the wound care clinic later this week. No s/s infections. No new clinical concerns. 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 Social - has a girlfriend and his [...] throat pain or thrush Cardiovascular --SOB: No --PICHAROD: 1 flight PICHARDO --chest pain: No Respiratory [...] beat PHYSICAL EXAM VITAL SIGNS: Blood pressure (!) 152/96, pulse 100, temperature 36.3 ??C (97.3 ??F), temperature source Temporal, resp. rate 17, height 177.5 cm (5' 9.88), weight 100.7 kg (222 lb), SpO2 98 %. GENERAL: Herber Iverson [...] oriented to person, place and time. LABORATORY Ref. Range 07/01/2021 11:22 WBC Latest Ref Range: 4.0 - 9.5 x10(3)/mcL 7.3 RBC Latest Ref Range: 4.58 - 5.54 x10(6)/mcL 2.77 (L) Hemoglobin Latest Ref Range: 13.7 - 16.5 g/dL 9.0 (L) Hematocrit Latest Ref Range: 40.5 - 48.5 % 27.4 (L) MCV Latest Ref Range: 82.9 - 93.1 fL 98.9 (H) MCH Latest Ref Range: 27.5 - 32.1 pg 32.5 (H) MCHC Latest Ref Range: 32.0 - 35.7 g/dL 32.8 RDWSD Latest Ref Range: 36.0 - 45.0 fL 70.0 (H) RDWCV Latest Ref Range: 11.4 - 13.8 % 19.8 (H) Platelets Latest Ref Range: 145 - 357 x10(3)/mcL 144 (L) MPV Latest Ref Range: 7.6 - 12.9 fL 10.3 nRBC % Auto Latest Units: % 0.0 nRBC Abs Auto Latest Ref Range: 0.000 - 0.000 x10(3)/mcL 0.000 Neutr Abs (ANC) Latest Ref Range: 1.70 - 6.10 x10(3)/mcL 5.80 Neutrophil % Latest Units: % 79 Lymphocyte % Latest Units: % 13 Monocyte % Latest Units: % 2 Eosinophil % Latest Units: % 5 Blasts % Latest Units: % 1 Neutrophil Abs Latest Ref Range: 1.7 - 6.1 x10(3)/mcL 5.8 Lymphocyte Abs Latest Ref Range: 0.9 - 3.2 x10(3)/mcL 1.0 Monocyte Abs Latest Ref Range: 0.3 - 0.9 x10(3)/mcL 0.2 (L) Eosinophil Abs Latest Ref Range: 0.0 - 0.4 x10(3)/mcL 0.4 Blast Abs Latest Ref Range: 0.0 - 0.0 x10(3)/mcL 0.1 (H) Tot Diff Cell Ct Unknown 100 Plat Estimate Unknown Decreased RBC Morphology Unknown Abnormal Macrocytes Latest Units: /HPF 1-5 Stippled RBCs Latest Units: >1/HPF Present RADIOLOGY - None ASSESSMENT & PLANS 1. [...] f/u with Surgery - not yet scheduled. --Followed closely by wound care clinic 4. Counseling --Herber and I reviewed his counts and he will meet with Annika Geller RN Transitional Nurse for further discussion of allogenic stem cell transplant. --Herber will require one course of consolidation prior to admit for Allo BMT 5. Summary of Plans --bone marrow biopsy this week --Arrange for admission for consolidation --Follow up in wound care clinic as scheduled --Herber to call any time if not feeling well or questions or concerns arise.. Hayley Palmer APRN Section of Hematology [facility] documented in this encounter Plan of Treatment Upcoming Encounters Date Type Specialty Care Team Description 02/18/2022 Infusion Hematology and Oncology 02/21/2022 Infusion Hematology and Oncology 02/24/2022 Appointment Hematology and Oncology 02/24/2022 Office Visit Hematology and Oncology Parviz Modi MD [facility] DR HEMATOLOGY/[place] [address] Miroslava Pelayo APRN [facility] HEMATOLOGY/[place] [address] 02/24/2022 Office Visit Wound Care 02/24/2022 Appointment Hematology and Oncology 02/26/2022 Office Visit Neurology Leni Bustamante MD [facility] NEUROLOGY DEPT. 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 difficile 05/25/2021 05/25/2021 08/20/2021 5:29 AM EST documented as of this encounter Care Teams Flight Control Specialist Relationship Specialty Start Date End Date Beatriz Maurice PA PCP - General Family Medicine 05/06/21 [address] [place] [address] documented as of this encounter
--- OUTSIDE RECORDS SUMMARY | 2022-02-14 11:18 | XMS_ITS | Encounter Summary ---
:1960 Author Organization [facility] [place] [address] Care Team Providers Name Role Phone Beatriz Maurice Primary Care Provider Encounter Details Date Type Department Care Team Description 07/07/2021 Telephone Hematology and Oncology at Kallie Leger [facility] [place] [address] HEMATOLOGY/ONCOLOGY [phone] [place], [place] [address] (Wo rk) Social History Tobacco [...] Telephone Encounter - Kallie Leger MD - 07/07/2021 9:34 PM EST Reason for call: Diplopia Caller: Hospital: [facility] HPI: Mr. 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 He hadbone marrow that showed no blast afterwards, although the last one from 07/04 is showing relapse AML. He presented today to outside facility with double vision that started last night and got worse today. It goes away when he lies over his right side and intermittently when he closes his eyes. He does not endorses headache, nausea or vomiting. He also presents with lower back pain at the side of her bone marrow biopsy, which was addressed by one of our LACE MACHINE OPERATOR. The pain lea snot radiate. He denies weakness of numbness in his extremities. He was recommended ibruprofen and oxycodone, bt did not work well. He remains with back pain that is fairly co ntrolled with morphine, and Oxycontin. Herber does not have fever, chills, nausea, vomiting, chest pain. Neurology was consulted and recommeded to obtain brain MRI and LP. VS: Stable. BP 126/67. Physical exam: No neurological focal deficit. No pronator drift. No mouth droop. WBC 23.1, Hb 9.0, htc 27.1, plt 121k. No blast.s Mg 1.3 K, Na normal. Cr 1,2, BUN 23 CT head is negative for acute abnormality except chronic sinusitis. Treatment/management done thus far: IV magnesium, morphine, Oxycontine Assessment/Recommendations: Herber is a 60 years old diagnosed with AML FLT3 this past April s/p 1 cycle of 7+3, who unfortunately is showing relapsed AML per bone marrow biopsy performed on 07/04. He is now presenting with acute neurological deficit such as diplopia and worsening of lower back pain. #Relalpse AML with neurological deficit PUPPY WALKER involvement from AML is rare. Thus given his current neurological symptom (diplopia), he may benefit of CSF examination. LP with cytology and flow cytometry is recommended. In addition, MRI of the brain as well as official consult by neurology for a comprehensive neurological examination. I recommended to transfer the patient to our institution, however per Transfer Center, [facility] has a tight situation with bed availability. After discussion, and given his current hemodynamically stable statust, we will wait for MRI results and transfer will be attempted tomorrow. I will c.c. primary hematology team to expedite the process. #Acute on chronic back pain It is unclear the etiology of his current back pain. CT of the spine withtout contrast is planned for tomorrow. Although I recommended to obtain a MRI instead for better assessment. In the meantime, hecan continue with oxycodone 5 mg every 4 hours. Neuro checks for acute deficit. Kallie Rodrigez M.D. Hematology and Oncology Fellow [facility] Pager # [phone] 07/07/21, 9:34 PM This is not an official consult, [...] and Oncology Parviz Modi MD [facility] DR HEMATOLOGY/[place] [address] Miroslava Pelayo APRN [facility] DR HEMATOLOGY/[place] [address] 02/24/2022 Office Visit Wound Care 02/24/2022 Appointment Hematology and Oncology 02/26/2022 Office Visit Neurology Leni Bustamante MD [facility] ER NEUROLOGY DEPT. [place], [place] [address] (Wo rk) documented as of this encounter Visit Diagnoses Not on filedocumented in this encounter Additional Health Concerns Infection Onset Date Last Indicated Resolved Time C. difficile 05/25/2021 05/25/2021 08/20/2021 5:29 AM EST documented as of this encounter Care Teams Etl Application Developer Relationship Specialty Start Date End Date Beatriz Maurice PA PCP - General Family Medicine 05/06/21 [address] [place] [address] documented as of this encounter
--- OUTSIDE RECORDS SUMMARY | 2022-02-14 11:18 | XMS_ITS | Encounter Summary ---
:1960 Author Organization [facility] Address [address] [place] [address] Care Team Providers Name Role Phone AjithBeatriz patricia Primary Care Provider Reason for Visit Reason Comments Prior Authorization Venclexta 100mg Tablets Encounter Details Date Type Department Care Team Description 07/30/2021 Specialty Pharm[address]acy at [facility] Shara Prior Authorization [facility] Ana Luis (Venclext a 100mg Drive Tablets ) [place] [id number] Social History Tobacco Use Types Packs/Day Years [...] documented as of this encounter Progress Notes Ana Olmedo - 07/30/2021 3:22 PM EST [facility], No Prior Authorization Required Patient: Herber Iverson Jr. Patient : 1960 Patient Address: [address] [facility] [address] (home) Medication Name: VENCLEXTA 100 MG TABLET Medication ID: [id number] Patient Location: [facility] HEM ONC 3K Patient Location Comment: Medication Strength Frequency Requested: Venclexta 100mg - Take two tablets every day. Qty/Day Supply: 60/30 New Start: New to Therapy Diagnosis & ICD-10 Code: Acute myeloid leukemia in remission C92.01 Subscriber Insurance: Subscriber Insurance Comment: Fax: Physician: RENAY PONCE Physician Comment : PA Status: NO PA REQUIRED Insurance mandated Pharmacy: Fillable at - Specialty Pharmacy: No Insurance requirements/notes: Insurance mandates that patient fill with [id number]. Copay: Unknown Copay assistance: None Copay assistance comment: Pharmacy staff will be reaching out to the patient to inform them of their medication's approval by their insurance. If applicable, a pharmacist will speak with the patient to offer our specialty pharmacy services and to arrange delivery of their medication. Ana Olmedo 07/30/21 3:32 PM documented in this encounter Plan of Treatment Upcoming Encounters Date Type Specialty Care Team Description 02/18/2022 Infusion Hematology and Oncology 02/21/2022 Infusion Hematology and Oncology 02/24/2022 Appointment Hematology and Oncology 02/24/2022 Office Visit Hematology and Oncology Parviz Modi MD [facility] DR HEMATOLOGY/[place] [address] Miroslava Pelayo APRN [facility] HEMATOLOGY/[place] [address] 02/24/2022 Office Visit Wound Care 02/24/2022 Appointment Hematology and Oncology 02/26/2022 Office Visit Neurology Leni Bustamante MD [facility] DR NEUROLOGY DEPT. [place], [place] [address] (Wo rk) documented as of this encounter Visit Diagnoses Not on filedocumented in this encounter Additional Health Concerns Infection Onset Date Last Indicated Resolved Time C. difficile 05/25/2021 05/25/2021 08/20/2021 5:29 AM EST documented as of this encounter Care Teams Senior Android Developer Relationship Specialty Start Date End Date Beatriz Maurice PA PCP - General Family Medicine 05/06/21 [address] [place] [address] documented as of this encounter
--- OUTSIDE RECORDS SUMMARY | 2022-02-14 11:18 | XMS_ITS | Encounter Summary ---
:1960 Author Organization [facility] Address [address] [place] [address] Care Team Providers Name Role Phone Beatriz Maurice Primary Care Provider Encounter Details Date Type Department Care Team Description 07/02/2021 Orders Only Hematology and Parviz Modi Acute myeloid Oncology [place] [facility] MD Mars leukemia in remission [facility] ENTER (Primary Dx) [facility] HEMATOLOGY/ONCOLOGY [place], [place] DEPT. [address] [place] [address] [phone] (Wo rk) Social History Tobacco Use Types [...] [facility] DR HEMATOLOGY/[place] [address] Miroslava Pelayo APRN [facility] DR HEMATOLOGY/[place] [address] 02/24/2022 Office Visit Wound Care 02/24/2022 Appointment Hematology and Oncology 02/26/2022 Office Visit Neurology Leni Bustamante MD [facility] DR NEUROLOGY DEPT. [place], [place] [address] (Wo rk) Scheduled Orders Name Type Priority Associated Diagnoses Order S chedule CBC (with Diff) Lab Routine Acute myeloid leukemia in Expected: 07/02/2021, remission Expires: 2021 documented as of this encounter Visit Diagnoses Diagnosis Acute myeloid leukemia in remission - Pr imary documented in this encounter Additional Health Concerns Infection Onset Date Last Indicated Resolved Time C. difficile 05/25/2021 05/25/2021 08/20/2021 5:29 AM EST documented as of this encounter Care Teams Mobile Device Engineer Relationship Specialty Start Date End Date Beatriz Maurice PA PCP - General Family Medicine 05/06/21 [address] [place] [address] documented as of this encounter
--- OUTSIDE RECORDS SUMMARY | 2022-02-14 11:18 | XMS_ITS | Encounter Summary ---
:1960 Author Organization [facility] Address [address] [place] [address] Care Team Providers Name Role Phone Beatriz Maurice Primary Care Provider Encounter Details Date Type Department Care Team Description 07/12/2021 Orders Only Hematology and Oncology at , T MD maryann [facility] Catie narvaez HEMATOLOGY/[place] [address] [place] [address] [phone] (Wo rk) Social History Tobacco Use Types [...] [facility] DR HEMATOLOGY/[place] [address] Miroslava Pelayo APRN [facility] HEMATOLOGY/[place] [address] 02/24/2022 Office Visit Wound Care 02/24/2022 Appointment Hematology and Oncology 02/26/2022 Office Visit Neurology Leni Bustamante MD [facility] NEUROLOGY DEPT. [place], [place] [address] (Wo rk) documented as of this encounter Visit Diagnoses Not on filedocumented in this encounter Additional Health Concerns Infection Onset Date Last Indicated Resolved Time C. difficile 05/25/2021 05/25/2021 08/20/2021 5:29 AM EST documented as of this encounter Care Teams Chicken Stuffer Relationship Specialty Start Date End Date Beatriz Maurice PA PCP - General Family Medicine 05/06/21 [address] [place] [address] documented as of this encounter
--- OUTSIDE RECORDS SUMMARY | 2022-02-14 11:18 | XMS_ITS | Encounter Summary ---
:1960 Author Organization [facility] Address [address] [address] Care Team Providers Name Role Phone Beatriz Maurice Primary Care Provider Encounter Details Date Type Department Care Team Description 07/08/2021 Telephone Neurology at [facility] Kota Zavala MD [facility] [place] [id number] Neurology [phone] [place], [place] [address] (Wo rk) Social History Tobacco Use Types [...] this encounter Miscellaneous Notes Telephone Encounter - Kota Zavala MD - 07/08/2021 9:04 AM EST Received call from [facility] yesterday evening. This is patient with AML actively undergoing treatment who developed diplopia, and back pain. Diplopia worse with far vision - goes away when lying down on right side. Goes away when closes 1 eye. This had wide differential. Recommended consult to oncology. Recommend MRI brain w contrast ideally thin cuts through the brainstem (r/out stroke, stigmata high ICP, mass lesion, leptomeningeal enhancement). If negative would obtain LP w OP, CP, cells/gram stain, glucose, protein, cytology, flow cytometry, hold fluid (if inflammatory could consider HSV/VZV PCR ; may need repeat LP if we need up considering fungal or atypical pathogens, though infection here seems less likely). Can consider tx tomorrow depending on results. Kota Zavala MD 07/08/2021 Biological Lab Technician General Neurology and Clinical Neurophysiology [facility] Department of Neurology documented in this encounter Plan of Treatment Upcoming Encounters Date Type Specialty Care Team Description 02/18/2022 Infusion Hematology and Oncology 02/21/2022 Infusion Hematology and Oncology 02/24/2022 Appointment Hematology and Oncology 02/24/2022 Office Visit Hematology and Oncology Parviz Modi MD [facility] DR HEMATOLOGY/[place] [address] Miroslava Pelayo APRN [facility] DR HEMATOLOGY/[place] [address] 02/24/2022 Office Visit Wound Care 02/24/2022 Appointment Hematology and Oncology 02/26/2022 Office Visit Neurology Leni Bustamante MD [facility] ER NEUROLOGY DEPT. [place], [place] [address] (Wo rk) documented as of this encounter Visit Diagnoses Not on filedocumented in this encounter Additional Health Concerns Infection Onset Date Last Indicated Resolved Time C. difficile 05/25/2021 05/25/2021 08/20/2021 5:29 AM EST documented as of this encounter Care Teams Tallow Maker Relationship Specialty Start Date End Date Beatriz Maurice PA PCP - General Family Medicine 05/06/21 [address] [place] [address] documented as of this encounter
--- OUTSIDE RECORDS SUMMARY | 2022-02-14 11:18 | XMS_ITS | Encounter Summary ---
:1960 Author Organization [facility] [place] [address] Care Team Providers Name Role Phone Beatriz Maurice Primary Care Provider Encounter Details Date Type Department Care Team Description 07/31/2021 Orders Only Hematology and Oncology at Kj Wilson MD [facility] [place] [address] [place] [address] [phone] Social History Tobacco Use Types Packs/Day Years [...] MD [facility] DR HEMATOLOGY/[place] [address] Miroslava Pelayo APRN [facility] HEMATOLOGY/[place] [address] 02/24/2022 Office Visit Wound Care 02/24/2022 Appointment Hematology and Oncology 02/26/2022 Office Visit Neurology Leni Bustamante MD [facility] NEUROLOGY DEPT. [place], [place] [address] (Wo rk) documented as of this encounter Visit Diagnoses Not on filedocumented in this encounter Additional Health Concerns Infection Onset Date Last Indicated Resolved Time C. difficile 05/25/2021 05/25/2021 08/20/2021 5:29 AM EST documented as of this encounter Care Teams Research Agricultural Engineer Relationship Specialty Start Date End Date Beatriz Maurice PA PCP - General Family Medicine 05/06/21 [address] [place] [address] documented as of this encounter
--- OUTSIDE RECORDS SUMMARY | 2022-02-14 11:18 | XMS_ITS | Encounter Summary ---
:1960 Author Organization [facility] Address [facility] [address] [place] [address] Care Team Providers Name Role Phone Beatriz Maurice Primary Care Provider Encounter Details Date Type Department Care Team Description 07/05/2021 Orders Only [facility] Catie narvaez [place] [address] DEPT. [phone] [place], [place] [address] (Wo rk) Social History Tobacco [...] MD [facility] DR HEMATOLOGY/[place] [address] Miroslava Pelayo APRN [facility] HEMATOLOGY/[place] [address] 02/24/2022 Office Visit Wound Care 02/24/2022 Appointment Hematology and Oncology 02/26/2022 Office Visit Neurology Leni Bustamante MD [facility] NEUROLOGY DEPT. [place], [place] [address] (Wo rk) documented as of this encounter Visit Diagnoses Not on filedocumented in this encounter Additional Health Concerns Infection Onset Date Last Indicated Resolved Time C. difficile 05/25/2021 05/25/2021 08/20/2021 5:29 AM EST documented as of this encounter Care Teams Youth Advocate Relationship Specialty Start Date End Date Beatriz Maurice PA PCP - General Family Medicine 05/06/21 [address] [place] [address] documented as of this encounter
--- OUTSIDE RECORDS SUMMARY | 2022-02-14 11:18 | XMS_ITS | Encounter Summary ---
:1960 Author Organization [facility] Address [address] [place] [address] Care Team Providers Name Role Phone Beatriz Maurice Primary Care Provider Encounter Details Date Type Department Care Team Description 07/12/2021 Ancillary Procedure [place] [address] Social History Tobacco Use Types Packs/Day [...] [facility] DR HEMATOLOGY/[place] [address] Miroslava Pelayo APRN [facility] DR HEMATOLOGY/[place] [address] 02/24/2022 Office Visit Wound Care 02/24/2022 Appointment Hematology and Oncology 02/26/2022 Office Visit Neurology Leni Bustamante MD [facility] DR NEUROLOGY DEPT. [place], [place] [address] (Wo rk) documented as of this encounter Procedures Procedure Name Priority Date/Time Associated Diagnosis Comme nts REQUEST FOR 2ND Routine 07/12/2021 1:13 PM Result s for this READ CT HEAD EST procedure are i n the results section. documented in this encounter Results Request For 2nd Read CT Head (07/12/2021 1:13 PM EST) Anatomical Region Laterality Modality Head SO Specimen (Source) Anatomical Location Collection Method / Collectio n Time Received Time / Laterality Volume Impressions 07/12/2021 1:49 PM EST No acute intracranial abnormality. Thank you for letting us participate in the care of this patient. ??If you are a health care provider and have any questi ons regarding this report, please contact the number below. ??For patients who have questions please contact the health clinical care manager that requested your imaging first. ? Narrative 07/12/2021 1:49 PM EST EXAMINATION: REQUEST FOR 2ND READ CT HEAD CLINICAL HISTORY: new diplopia; Sending Institution imaging in chart/image library; Date of exam [id number]; I believ e a reinterpretation of this exam may alter care of Patient. Yes TECHNIQUE: CT of the head performed with out the use of intravenous contrast at [facility] on 07/07/2021 COMPARISON: None FINDINGS: The ventricles are normal in s ize and contour. There is no intracranial mass, mass effect, or shift . There is no intracranial hemorrhage or extra-axial collection. No CT evidence o f acute territorial infarct. No osseous abnormality. Procedure Note Nas Patino MD - 07/12/2021Format ting of this note might be different from the original. EXAMINATION: REQUEST FOR 2ND READ CT CONTRERAS Haddad CLINICAL HISTORY: new diplopia; Sending Institution imaging in chart/image library; Date of exam [id number]; I believ e a reinterpretation of this exam may alter care of Patient. Yes TECHNIQUE: CT of the head performed with out the use of intravenous contrast at [facility] on 07/07/2021 COMPARISON: None FINDINGS: The ventricles are normal in s ize and contour. There is no intracranial mass, mass effect, or shift . There is no intracranial hemorrhage or extra-axial collection. No CT evidence o f acute territorial infarct. No osseous abnormality. IMPRESSION No acute intracranial abnormality. Thank you for letting us participate in the care of this patient. If you are a health care provider and have any questi ons regarding this report, please contact the number below. For patients w ho have questions please contact the health clinical care manager that requested your imaging first. Electronically signed by: Nas Patino MD, [facility] ([phone]), at 07/12/2021 1:49 PM Miguel Angel Archer MD IMG OUTSIDE INTERPRETATION O RDERABLES documented in this encounter Visit Diagnoses Not on filedocumented in this encounter Additional Health Concerns Infection Onset Date Last Indicated Resolved Time C. difficile 05/25/2021 05/25/2021 08/20/2021 5:29 AM EST documented as of this encounter Care Teams Copier Repair Technician Relationship Specialty Start Date End Date Beatriz Maurice PA PCP - General Family Medicine 05/06/21 [address] [place] [address] documented as of this encounter
--- OUTSIDE RECORDS SUMMARY | 2022-02-14 11:18 | XMS_ITS | Encounter Summary ---
:1960 Author Organization [facility] [place] [address] Care Team Providers Name Role Phone Beatriz Maurice Primary Care Provider Encounter Details Date Type Department Care Team Description 07/09/2021 Telephone Hematology [place] [facility] Annika Geller, [place] [address] Social History Tobacco Use Types Packs/Day [...] Telephone Encounter - Annika Geller RN - 07/09/2021 9:58 AM EST TCT Nurse Navigator Note: O: Herber is Day +61 s/p 7&3 for AML. ?? 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 ?? We saw Herber in clinic on 07/01 for first consult visit post admit with Dr. Modi. ?? Herber had a bone marrow biopsy with local only in the clinic on 07/04. ?? On 07/05 he presented to with complaints of excruciating back pain he thought was related to the BMBX. We sent him home with instructions to take ibuprofen and oxycodone for breakthrough pain. Over the weekend he presented to [facility] with ongoing pain and new neurological symptoms. Blasts 26% per BMBX. ?? [facility] has been in contact with Neuro/HemeOnc at . Dr. Modi would like him transferred to [facility] for re-induction chemotherapy for his relapsed AML. ?? This RN called [facility] and spoke with charge nurse who will initiate the transfer now. A/P: Transfer from [facility] to treat relapsed AML and possible ROTO MIXER OPERATOR involvement documented in this encounter Plan of Treatment Upcoming Encounters Date Type Specialty Care Team Description 02/18/2022 Infusion Hematology and Oncology 02/21/2022 Infusion Hematology and Oncology 02/24/2022 Appointment Hematology and Oncology 02/24/2022 Office Visit Hematology and Oncology Parviz Modi MD [facility] DR HEMATOLOGY/[place] [address] Miroslava Pelayo APRN [facility] DR HEMATOLOGY/[place] [address] 02/24/2022 Office Visit Wound Care 02/24/2022 Appointment Hematology and Oncology 02/26/2022 Office Visit Neurology Leni Bustamante MD [facility] DR NEUROLOGY DEPT. [place], [place] [address] (Wo rk) documented as of this encounter Visit Diagnoses Not on filedocumented in this encounter Additional Health Concerns Infection Onset Date Last Indicated Resolved Time C. difficile 05/25/2021 05/25/2021 08/20/2021 5:29 AM EST documented as of this encounter Care Teams Highway Engineering Technician Relationship Specialty Start Date End Date Beatriz Maurice PA PCP - General Family Medicine 05/06/21 [address] [place] [address] documented as of this encounter
--- OUTSIDE RECORDS SUMMARY | 2022-02-14 11:18 | XMS_ITS | Encounter Summary ---
:1960 Author Organization [facility] [place] [address] Care Team Providers Name Role Phone Beatriz Maurice Primary Care Provider Reason for Visit Reason Onset Date Comments Other 07/01/2021 Treadwell, S/T Disabili ty Encounter Details Date Type Department Care Team Description 07/01/2021 Telephone Hematology and Nichelle Barnard, Other ( Treadwell, S/T Oncology at [facility] CABIN CLEANING SUPERVISOR Disability) [place] [address] Social History Tobacco Use Types Packs/Day [...] Telephone Encounter - Nichelle Barnard MSW - 07/01/2021 5:00 PM EST CABIN CLEANING SUPERVISOR called Hreber asking him to bring in his JAF worksheet, signature page, and POI for his S/O and her mother, so this speech writer can apply for [employer] card. He has no bills in his name that we can apply for to have paid. CABIN CLEANING SUPERVISOR will meet him at 4L on 07/04/21 to fruit picker these papers and give him a $50 [employer] grocery card and $20 gas card. Herber did say that he was mistaken about having no S/T disability and that will be coming shortly, which is good news. documented in this encounter Plan of Treatment Upcoming Encounters Date Type Specialty Care Team Description 02/18/2022 Infusion Hematology and Oncology 02/21/2022 Infusion Hematology and Oncology 02/24/2022 Appointment Hematology and Oncology 02/24/2022 Office Visit Hematology and Oncology Parviz Modi MD [facility] DR HEMATOLOGY/[place] [address] Miroslava Pelayo APRN [facility] DR HEMATOLOGY/[place] [address] 02/24/2022 Office Visit Wound Care 02/24/2022 Appointment Hematology and Oncology 02/26/2022 Office Visit Neurology Leni Bustamante MD [facility] DR NEUROLOGY DEPT. [place], [place] [address] (Wo rk) documented as of this encounter Visit Diagnoses Not on filedocumented in this encounter Additional Health Concerns Infection Onset Date Last Indicated Resolved Time C. difficile 05/25/2021 05/25/2021 08/20/2021 5:29 AM EST documented as of this encounter Care Teams Project Control Officer Relationship Specialty Start Date End Date Beatriz Maurice PA PCP - General Family Medicine 05/06/21 [address] [place] [address] documented as of this encounter
--- OUTSIDE RECORDS SUMMARY | 2022-02-14 11:18 | XMS_ITS | Encounter Summary ---
:1960 [place] [address] Care Team Providers Name Role Phone Beatriz Maurice Primary Care Provider Encounter Details Date Type Department Care Team Description 06/24/2021 Telephone Wound Care at [facility] [place] [address] Social History Tobacco Use Types Packs/Day [...] this encounter Miscellaneous Notes Telephone Encounter - Reyna Teague RN - 06/24/2021 9:36 AM EST phlebotomy support tech telephone note - pt calling in this morning re: difficulty with pouch adherence. 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 He was discharged home on 06/20. He reports that overall he is doing well, but is concerned about his ileostomy pouch. He reports that [facility] saw him on 06/21 and changed the pouch which leaked, so he changed it again. However, this pouch also leaked and pt attributes this to the fact that his stool was liquid 2/2to only drinking and not eating. He states that he changed his pouch again, but noted that this morning the pouch looks like it's lifting up so he will most likely need to change it again shortly. Mars soto is looking for advice and tips before he does so. Pt tells me that he is cleaning peristomal skin with water and drying well. Tells me he's treating the peristomal skin with stoma powder & skin prep (correctly) as it looks red. States that currently his stool is applesauce consistency and that on average, he's had 800-850cc of stool from the ileostomy/24 hours. He states that he's urinating a lot and drinking at least 2L/24 hours. He is using the Coloplast soft convex pouch #83073 without paste or ring and he has not used the belt, although he has one. I suggested that he trial adding paste when he needs to change the pouch again. Pt did not really like this suggestion due to difficulty of pouch removal when paste was used in the hospital. As a compromise, I suggested assessing the back of the pouch he removes for any discoloration and if noted, using paste in that location on the next pouch. I also recommended wearing the belt for at least 1-2 hours after applying a new pouch. Pt is also concerned as he only has one more of the convex pouches left. Pt with be at [facility] for a f/u with Dr. Modi today so will plan to drop off 5 spare pouches and 10 spare barrier strips for him at to pickling grader. Pt verbalized understanding of my recommendations and was thankful for the spare supplies. I enc pt to call if any further questions or concerns arise prior to his schedule f/u with Ostomy team on 07/04. documented in this encounter Plan of Treatment Upcoming Encounters Date Type Specialty Care Team Description 02/18/2022 Infusion Hematology and Oncology 02/21/2022 Infusion Hematology and Oncology 02/24/2022 Appointment Hematology and Oncology 02/24/2022 Office Visit Hematology and Oncology Parviz Modi MD [facility] DR HEMATOLOGY/[place] [address] Miroslava Pelayo APRN [facility] DR HEMATOLOGY/[place] [address] 02/24/2022 Office Visit Wound Care 02/24/2022 Appointment Hematology and Oncology 02/26/2022 Office Visit Neurology Leni Bustamante MD [facility] NEUROLOGY DEPT. [place], [place] [address] (Wo rk) documented as of this encounter Visit Diagnoses Not on filedocumented in this encounter Additional Health Concerns Infection Onset Date Last Indicated Resolved Time C. difficile 05/25/2021 05/25/2021 08/20/2021 5:29 AM EST documented as of this encounter Care Teams Sample Body Builder Relationship Specialty Start Date End Date Beatriz Maurice PA PCP - General Family Medicine 05/06/21 [address] [place] [address] documented as of this encounter
--- OUTSIDE RECORDS SUMMARY | 2022-02-14 11:18 | XMS_ITS | Encounter Summary ---
:1960 Author Organization [facility] Address [facility] [address] [place] [address] Care Team Providers Name Role Phone AjithBeatriz patricia Primary Care Provider Encounter Details Date Type Department Care Team Description 07/15/2021 Ophth Exam Ophthalmology at [facility] Quinten Jenkins MD [facility] [place] [address] OPHTHALMOLOGY [phone] [place], [place] [address] (Wo rk) Social History Tobacco [...] [facility] DR HEMATOLOGY/[place] [address] Miroslava Pelayo APRN [facility] HEMATOLOGY/[place] [address] 02/24/2022 Office Visit Wound Care 02/24/2022 Appointment Hematology and Oncology 02/26/2022 Office Visit Neurology Leni Bustamante MD [facility] NEUROLOGY DEPT. [place], [place] [address] (Wo rk) documented as of this encounter Visit Diagnoses Not on filedocumented in this encounter Additional Health Concerns Infection Onset Date Last Indicated Resolved Time C. difficile 05/25/2021 05/25/2021 08/20/2021 5:29 AM EST documented as of this encounter Care Teams Concrete Finisher Apprentice Relationship Specialty Start Date End Date Beatriz Maurice PA PCP - General Family Medicine 05/06/21 [address] [place] [address] documented as of this encounter
--- OUTSIDE RECORDS SUMMARY | 2022-02-14 11:18 | XMS_ITS | Encounter Summary ---
:1960 Author Organization [facility] Address [facility] [place] [address] Care Team Providers Name Role Phone Beatriz Maurice Primary Care Provider Reason for Visit Reason Onset Date Comments Other 07/22/2021 Need actual car insu latisha bill to resubmit to [facility] Encounter Details Date Type Department Care Team Description 07/22/2021 Telephone Hematology and Nichelle Barnard, Other ( Need actual car Oncology at [facility] insurance bill to [facility] resubmit to [facility]) [place] [address] Social History Tobacco Use Types Packs/Day [...] Telephone Encounter - Nichelle Barnard MSW - 07/22/2021 4:21 PM EST BEHAVIORAL HEALTH CONSULTANT told Herber's partner Morales that [facility] would not accept their car insurance Anniversary Renewal Declaration but needs an actual bill. She will find it and mail it to this technical report writer so it can be resubmitted to [facility]. SW Intervention: Financial resources documented in this encounter Plan of Treatment Upcoming Encounters Date Type Specialty Care Team Description 02/18/2022 Infusion Hematology and Oncology 02/21/2022 Infusion Hematology and Oncology 02/24/2022 Appointment Hematology and Oncology 02/24/2022 Office Visit Hematology and Oncology Parviz Modi MD [facility] DR HEMATOLOGY/[place] [address] Miroslava Pelayo APRN [facility] DR HEMATOLOGY/[place] [address] 02/24/2022 Office Visit Wound Care 02/24/2022 Appointment Hematology and Oncology 02/26/2022 Office Visit Neurology Leni Bustamante MD [facility] NEUROLOGY DEPT. [place], [place] [address] (Wo rk) documented as of this encounter Visit Diagnoses Not on filedocumented in this encounter Additional Health Concerns Infection Onset Date Last Indicated Resolved Time C. difficile 05/25/2021 05/25/2021 08/20/2021 5:29 AM EST documented as of this encounter Care Teams Central Supply Technician Relationship Specialty Start Date End Date Beatriz Maurice PA PCP - General Family Medicine 05/06/21 [address] [place] [address] documented as of this encounter
--- OUTSIDE RECORDS SUMMARY | 2022-02-14 11:18 | XMS_ITS | Encounter Summary ---
:1960 Author Organization [facility] [place] [address] Care Team Providers Name Role Phone Beatriz Maurice Primary Care Provider Encounter Details Date Type Department Care Team Description 07/01/2021 Telephone Hematology and Oncol ogy at [facility] Qi Zambrano, [place] [address] Social History Tobacco Use Types Packs/Day [...] Telephone Encounter - Qi Zambrano RN - 07/01/2021 10:02 AM EST RN received call at 10:00 from Miryam with Lab reporting critical result(s) on patient: Purple tube clotted. Please send patient back for re-draw. RN notified Annika Geller of above results at 10:02. Patient was still in clinic room with provider. documented in this encounter Plan of Treatment Upcoming Encounters Date Type Specialty Care Team Description 02/18/2022 Infusion Hematology and Oncology 02/21/2022 Infusion Hematology and Oncology 02/24/2022 Appointment Hematology and Oncology 02/24/2022 Office Visit Hematology and Oncology Parviz Modi MD [facility] DR HEMATOLOGY/[place] [address] Miroslava Pelayo APRN [facility] DR HEMATOLOGY/[place] [address] 02/24/2022 Office Visit Wound Care 02/24/2022 Appointment Hematology and Oncology 02/26/2022 Office Visit Neurology Lein Bustamante MD [facility] DR NEUROLOGY DEPT. [place], [place] [address] (Wo rk) documented as of this encounter Visit Diagnoses Not on filedocumented in this encounter Additional Health Concerns Infection Onset Date Last Indicated Resolved Time C. difficile 05/25/2021 05/25/2021 08/20/2021 5:29 AM EST documented as of this encounter Care Teams Climate Change Analyst Relationship Specialty Start Date End Date Beatriz Maurice PA PCP - General Family Medicine 05/06/21 [address] [place] [address] documented as of this encounter
--- OUTSIDE RECORDS SUMMARY | 2022-02-14 11:18 | XMS_ITS | Encounter Summary ---
:1960 Author Organization [facility] Address [place] [address] Care Team Providers Name Role Phone Beatriz Maurice Primary Care Provider Reason for Visit Reason Comments Specialty Pharmacy Review Encounter Details Date Type Department Care Team Description 07/04/2021 Specialty Pharmacy Pharmacy at [facility] [address] [place] [phone] Social History Tobacco Use Types Packs/Day Years [...] MD [facility] DR HEMATOLOGY/[place] [address] Miroslava Pelayo APRN [facility] DR HEMATOLOGY/[place] [address] 02/24/2022 Office Visit Wound Care 02/24/2022 Appointment Hematology and Oncology 02/26/2022 Office Visit Neurology Leni Bustamante MD [facility] NEUROLOGY DEPT. [place], [place] [address] (Wo rk) documented as of this encounter Visit Diagnoses Not on filedocumented in this encounter Additional Health Concerns Infection Onset Date Last Indicated Resolved Time C. difficile 05/25/2021 05/25/2021 08/20/2021 5:29 AM EST documented as of this encounter Care Teams Concrete Batching Plant Operator Relationship Specialty Start Date End Date Beatriz Maurice PA PCP - General Family Medicine 05/06/21 [address] [place] [address] documented as of this encounter
--- OUTSIDE RECORDS SUMMARY | 2022-02-14 11:19 | XMS_ITS | Encounter Summary ---
:1960 Author Organization [facility] Address [address] [place] [address] Care Team Providers Name Role Phone Ra Farfan MD, Herber Primary Care Provider Encounter Details Date Type Department Care Team Description 04/29/2021 Telephone Hematology and Oncology at [facility] [address] [address] HEMATOLOGY/ONCOLOGY [phone] [place], [place] [address] (Wo rk) Social History Tobacco Use Types Packs/Day Years Used Date Never Assessed Sex Assigned at Date Recorded Not on file documented as of this encounter Miscellaneous Notes Telephone Encounter - Kallie Leger MD - 04/29/2021 7:30 PM EDT Reason for call: Pancytopenia Caller: Attending Dr. Scott [place] [facility]: [facility] HPI: Mr. Herber Iverson Jr is a 60 years old male without significant past medical history who visited her ERafter being found with pancytopenia. He had an appointment with PCP due to fatigue who ordered labs and found pancytopenia. He was sent to the ER. He states he has fatigue for couple of weeks, he is feeling unwell, with shortness of breath at exertion. He does not have bruising, night sweats, fever,chills, bleeding from gums. His white count in the high 40,000 with atypical cells. Vitals: BP 140/84 HR 100xs at rest T 36.5C O2 94% on R/A RR 18 Exam (per attending): No lymph nodes (axillary or inguinal). Lungs CTA. No bruising. Labs: 6:30 pm WBC: 47,000 Hgb 8.3, hct 22, plt 23,000. ANC 1.9. Differential abs lymph 10.5, mono 32.9, eos/bas 0. They think they saw 1 blast ? But peripheral smear will not perform tonight. Compared with CBC from 4:00 pm there were no major drops. CMP per report Cr, Ca, Na, K, within normal limits. The only previous CBC recorded is from 2017: WBC 6.0, hgh 15, plt 167,000. Imaging: CXR no infiltrates or pulmonary edema. Treatment/management done thus far: IV fluids. Assessment/Recommendations: Mr. Iverson is presenting with constitutional symptoms (fatigue, shortness of breath) that started some weeks ago found at his PCP office with new onset of pancytopenia. Per CBC from 2017, his cell counts were normal. He does not have fever or neutropenia. Per attending report, CBC does not have blast but the electrical instrumentation technician mentions perhaps he saw 1 blasts, hence a blood smear is pending for tomorrow. Avi have monocytosis. Vital signs are stable. He is not tachycardic, hypoxemic or hypotensive. Physical exam w/o acute finding per attending. Likely due to a primary bone marrow disorder. He may need a bone marrow biopsy. In he meantime, it is of paramount importance to determine if he is presenting with blasts. In summary: -I explained that I am concerned about the dyspnea on exertion which likely is correlated with symptomatic anemia. I recommended blood transfusion if Hb <8 g/dL. -Please obtain hemolytic panel (haptoglobulin, LDH, retic count), iron panel, coag tests (PT/PTT), DIC panel (fibrinogen), lactic acid. -Repeat a CBC Q6H to monitor if major changes or blasts. -Pending blood smear to be done on 04/30. -Repeat CXR if respiratory status worsen. -Continue IV hydration. -I was very clear with Dr. Scott to monitor if patients is presenting with blasts. -If clinical or laboratory worsen, we will start transferring the patient to our institution. At this time there are no capacity but we will run the case by Medical Chief if needed. -Undoubtedly, he needs a bone marrow biopsy. I will cc our hematology triage team. Kallie Rodrigez M.D. Hematology and Oncology Fellow [facility] Pager # [phone] 04/29/21, 7:30 PM This is not an official consult, [...] [facility] DR HEMATOLOGY/[place] [address] Miroslava Pelayo APRN [facility] DR HEMATOLOGY/[place] [address] 02/24/2022 Office Visit Wound Care 02/24/2022 Appointment Hematology and Oncology 02/26/2022 Office Visit Neurology Leni Bustamante MD [facility] DR NEUROLOGY DEPT. [place], [place] [address] (Wo rk) documented as of this encounter Visit Diagnoses Not on filedocumented in this encounter Care Teams Stock Crane Operator Relationship Specialty Start Date End Date Herber Knapp MD PCP - General 07/09/10 05/05/21 [address] [place] [address] documented as of this encounter
--- OUTSIDE RECORDS SUMMARY | 2022-02-14 11:19 | XMS_ITS | Encounter Summary ---
:1960 [place] [address] Care Team Providers Name Role Phone AjithBeatriz patricia Primary Care Provider Reason for Visit Auth/Cert Specialty Diagnoses / Procedures Referred By Contact Refer red To Contact Diagnoses Acute leukemia Procedures EMERGENCY IPI Referral ID Status Reason Start Date Expiration Date Visits Requ ested Visits Authorized [id number] 1 1 Encounter Details Date Type Department Care Team Description 05/26/2021 Anesthesia Event Main Operating Room Herber Pickett MD [facility] [place] [address] [facility] Danni Romero CRNA [facility] [place] [address] [place] [address] Anesthesia Record Procedure Summary Procedure Name Responsible Anesthesia Start Anesthesia Stop Time Anesthesiologist Time @EXPLORATORY Herber Galindo MD 05/26/21 0938 05/26/21 134 8 LAPAROTOMY, WITH/WITHOUT BIOPSY(S) (WRVU 12.54) (Midline Abdomen) Events Date Time Event Comment 05/26/2021 0938 Start 0938 Transport 0944 AN Verify 0944 An Start Data 1003 An Induction 1005 An Intubation 1014 Anesthesia Ready 1025 Procedure Start 1107 IV Start 1325 an stop data 1326 Transport 1344 Recovery or ICU Handoff Patient care was transferred to the destination unit staff after review of the patient's medica l history, current anesthetic/surgi mamie status and plan, according to the Provider Handoff Checklist. 1348 Stop 1359 Name Total Midazolam 2 mg Propofol 105 mg Rocuronium 100 mg PHENYLephrine 160 mcg vasopressin 20 units in sodium chloride 0.9% 100 mL in fusion 17.6 Units EPINEPHrine (Adrenalin) (8 mcg/mL) in dextrose 5% 250 mL infusion 2,826 mcg angiotensin II (Giapreza) 2,500,000 ng in sodium chlor davina 0.9% 501 mL 229,704 ng infusion Ketamine 10 mg/mL 75 mg Vasopressin 2 Units EPINEPHrine 144 mcg NORepinephrine (Levophed) (128 mcg/mL) in sodium chlor davina 0.9% 250 mL 8,284 mcg infusion (High Concentration) metroNIDAZOLE (Flagyl) 500 mg in sodium chloride 0.9% 100 mL infusion 500 mg hydrocortisone 50 mg Insulin Regular Human 4 Units Insulin Regular INF 3.87 Units Lactated Ringers 800 mL Lactated Ringers 700 mL Sodium Chloride 0.9% 500 mL Agents Name O2 Air N2O Sevoflurane (et) Blood No blood administrations on file. Lines, Drains, and Airways Type Details Placement Removal PICC Line - Triple Lumen 05/07/21; 0847; basilic 05/07/21 0847 b y 06/19/21 1142 by vein (medial side of Favio Rubin Mosher, Joshua M, arm), right; pressure RN RN injectable catheter, open-ended catheter; 5 Fr; 0 cm; 38 cm; 38 cm; placement verified by x-ray; caval atrial junction; Karolyn RUBIN RN VAS, CCRN, VA-BC; appears comfortable, intradermal injection, distraction, tolerated well; 38cm of catheter recovered upon removal; removed per physician, removed per policy/procedure, site care per policy/procedure, catheter/device intact; 06/19/21; 1142 Urethral Catheter 05/25/21; 1745; 05/25/21 1745 by 05/26/21 2049 by Physician order; Q1-2hr Jose D Rivera, RN Don Youssef, RN UOP in ICU patient without alternative; 05/26/21; 2048 Incision 05/26/21; midline; 05/26/21 0000 by 10/30/21 002 5 by abdomen; midline; Ayesha Anglin, RN [facility] [place] Catie, 10/30/21; 0025 (no RN longer present on this assessment) Intentionally Retained 05/26/21; Dr. Hernandes; 05/26/21 0000 by 05/28/21 1340 by Foreign Objects Abdomen; Midline; 3 Ayesha Anglin, SHARON Carey, F [facility] E, retained lap sponges; RN 05/28/21; 1340; 4 lap sponges removed per Dr. Walter Arterial Line 05/26/21; 0530; radial 05/26/21 0530 by 06/02/21 1042 by artery, right; 20 GoyebernardoeFelicita S, Monet, Lesly gauge; Anatomical RN Janelle, RN Landmarks; CC Fellow; 1; radial artery, right; 06/02/21; 1042 ETT Mask Ventilation: Easy 05/26/21 1005 by 05/30/21 1030 by (1); ETT Type: Cuffed, O'Everette, Danni Spivey, Egner, Aracely, Oral; ETT Size: 8 mm; ALTO SINGER MEAL PACKER Mcclellan Blade: 2; Notes: Asleep, Pre-O2, Stylette; Attempts: 1; Laryngoscopy Grade: 1; ETT Placement Verified By: Capnometry, Visual; Secured at Teeth: 24 cm; Inserted by: marrero CVC Single/Intro. 05/26/21; 1107; 05/26/21 1107 by 05/26/21 1846 by internal jugular vein, Herber Galindo MD Coer, Claudy Lux RN right; Ultrasound Guidance; No; 9 Fr; Drea; Tubing Manometry; CVC Bundle Performed; 05/26/21; 1846 NPWT 05/26/21; 1306; 05/26/21 1306 by 05/28/21 1429 b y midline; abdomen; Ayesha Anglin, SHARON Carey, Lalito th E, Abthera; 05/28/21; 1429 RN NG/OG Tube 05/26/21; 1357; 05/26/21 1357 by 05/29/21 1200 b y orogastric; 50; Mounika Hannon RN Max am, Tita L, mouth; stomach; gastric RN decompression; Taped; 05/29/21; 1200 documented in this encounter Social History Tobacco Use Types Packs/Day Years [...] on file documented as of this encounter OR Notes Anesthesia Postprocedure Evaluation - Herber Galindo MD - 05/26/2021 3:16 PM EDT Department of Anesthesiology Post-procedure Note Patient: Herber Iverson JrNabil Procedure Summary Date: 05/26/21 Room / Location: [facility] OR [address] [place] [address] MAIN OR Anesthesia Start: 937 Anesthesia Stop: 1347 Procedure: @EXPLORATORY LAPAROTOMY, WITH/WITHOUT BIOPSY(S) (WRVU 12.54) (Midline Abdomen) Diagnosis: (aml) Surgeons: Mark Hernandes MD Responsible Provider: Herber Galindo MD Anesthesia Type: general ASA Status: 3 - Emergent All Anesthesia Providers: Anesthesiologist: Herber Galindo MD ALTO SINGER: Danni Marrero CRNA Vitals Value Taken Time BP 101/66 05/26/21 1410 Temp 37 ??C (98.6 ??F) 05/26/21 1425 Pulse 105 05/26/21 1516 Resp 23 05/26/21 1516 SpO2 99 % 05/26/21 1516 Pain Level Vitals shown include unvalidated device data. Patient Location: PACU/[facility] Level of Consciousness: Sedated (Pharmacologic/Intentional) Pain Management: Satisfactory Analgesia PONV: Cardiovascular Status: Hypotension (received treatment) Respiratory Status: Intubated/Ventilated Postoperative Fluid Status: Intravascular EUvolemia Possible Anesthetic Complications: NONE apparent at time of evaluation Final Primary Anesthesia Type: General (The anesthetic type performed was the same as planned.) Comments: Anesthesia Preprocedure Evaluation - Herber Galindo MD - 05/26/2021 9:15 AM EDT Pre-Anesthesia Evaluation for: Herber Iverson Jr. a 60 y.o. male. Procedure(s): @EXPLORATORY LAPAROTOMY, WITH/WITHOUT BIOPSY(S) [facility] Patient Active Problem List Diagnosis ??? Acute leukemia Past Medical History: Diagnosis Date ??? BPH (benign prostatic hyperplasia) ??? GERD (gastroesophageal reflux disease) ??? Paroxysmal atrial fibrillation No past surgical history on file. Social History Tobacco Use ??? Smoking status: Never Smoker ??? Smokeless tobacco: Never Used Substance Use Topics ??? Alcohol use: Not Currently Comment: 5 drinks/year Social History Substance and Sexual Activity Drug Use Never Allergies Allergen Reactions ??? Other [Unclassified Drug] Other (See Comments) Artificial Sweetners-lightheadedness, dizziness ??? Metoprolol heart skips a beat Medications: MAR and/or home medications have been reviewed. Physical Exam: Preprocedure Vitals Current as of 05/26/21 0915 BP: Pulse: 82 Resp: 28 SpO2: 96 Temp: 36.6 ??C (97.8 ??F) Height: 177.8 cm (5' 10) (05/25/21) Weight: 112.6 kg (248 lb 3.8 oz) (05/25/21) BMI: 35.61 IBW: 73 kg (160 lb 15 oz) Last edited 05/26/21 0900 by Currently displaying vitals information from multiple entries within 90 minutes of most recent vitals. 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 No prior anesthesia for surgery. NPO. On 3 pressors now. Elevated lactate. ECHO this am awaiting read. Labs reviewed. imelda SIMPSON in situ, better IV access, resuscitation, platelet transfusion. Region - Other Informed Consent: Anesthetic plan and risks discussed with patient. Plan discussed with ALTO SINGER. Anesthesia Screening documented in this encounter Plan of Treatment Upcoming Encounters Date Type Specialty Care Team Description 02/18/2022 Infusion Hematology and Oncology 02/21/2022 Infusion Hematology and Oncology 02/24/2022 Appointment Hematology and Oncology 02/24/2022 Office Visit Hematology and Oncology Parviz Modi MD [facility] DR HEMATOLOGY/[place] [address] Miroslava Pelayo APRN [facility] DR HEMATOLOGY/[place] [address] 02/24/2022 Office Visit Wound Care 02/24/2022 Appointment Hematology and Oncology 02/26/2022 Office Visit Neurology Leni Bustamante MD [facility] DR NEUROLOGY DEPT. [place], [place] [address] (Wo rk) documented as of this encounter Visit Diagnoses Not on filedocumented in this encounter Administered Medications Inactive Administered Medications - up to 3 most recent administrations Medication Order MAR Action Action Date Dose Rate Site angiotensin II Rate/Dose Change 05/26/2021 7:24 10 ng/kg/min 13.5 mL/ hr (Giapreza) 2,500,000 PM EDT ng in sodium chloride 0.9% 501 mL infusion 20 ng/kg/min ? 112.6 kg (27.078 mL/hr, rounded to 27.1 mL/hr), Intravenous, CONTINUOUS, Starting on 05/26/21 at 0900, Until 05/27/21 at 1528, - Initiate infusion at 20 nanograms/kg/min (ng/kg/min) via continuous infusion. - Titrate by 10 ng/kg/min every 5 minutes to achieve or maintain at target MAP of 65 mmHg. - Rate should not exceed 80 ng/kg/min during the first 3 hours. - AFTER the initial 3 hours the rate should not exceed 40 ng/kg/min. - Please contact pharmacy for pump rate calculation., Patient meets the pre-defined criteria for use of AT2: Yes, AT2 has been approved by the following medical sales associate or designee: Dr. Joshua Barnes- Cardiac Surgery Rate/Dose Change 05/26/2021 4:06 PM EDT 20 ng/kg/min 27.1 mL/hr Rate/Dose Verify 05/26/2021 2:24 PM EDT 30 ng/kg/min 40.6 mL/hr EPINEPHrine (Adrenalin) (0.1 mg/mL) inje ction Given 05/26/2021 12:26 PM EDT 4 mcg Intravenous, PRN, Starting on 05/26/21 at 1009, Until 05/26/21 at 1348, Anesthesia Intra-op, Routine Given 05/26/2021 12:24 PM EDT 8 mcg Given 05/26/2021 12:11 PM EDT 4 mcg EPINEPHrine (Adrenalin) (8 Rate/Dose Change 05/26/2021 11:37 AM 14 mcg/min 105 mL/hr mcg/mL) in dextrose 5% 250 EDT mL infusion 0-10 mcg/min (0-75 mL/hr), Intravenous, CONTINUOUS, Starting on 05/26/21 at 0745, Until 05/26/21 at 1417, Titrate to keep MAP greater than 65 mmHg. Start at 1 mcg/min and increase by 1 mcg/min every 3 minutes until goal reached. Do not exceed 10 mcg/min. Warning Vesicant/Irritant Medication Concentration: 8 mcg/mL. Warning Vesicant/Irritant Medication Rate/Dose Change 05/26/2021 11:31 AM EDT 12 mcg/min 90 mL/hr Rate/Dose Change 05/26/2021 11:23 AM EDT 14 mcg/min 105 mL/hr hydrocortisone sod succ (pf) (Solu-CORTEF) Given 05/26/2021 12:3 0 PM EDT 50 mg (100 mg/2 mL) injection Intravenous, PRN, Starting on 05/26/21 at 1230, Until 05/26/21 at 1348, Anesthesia Intra-op, Routine insulin regular (HumuLIN R,NovoLIN R) (100 Given 05/26 12:50 PM EDT 4 Units unit/mL) injection vial Intravenous, PRN, Starting on 05/26/21 at 1250, Until 05/26/21 at 1348, Anesthesia Intra-op, Routine insulin regular (Myxredlin) (1 New Bag 05/26/2021 12:50 PM 4 Units /hr 4 mL/hr unit/mL) in sodium chloride 0.9% EDT 100 mL infusion Intravenous, CONTINUOUS PRN, Starting on 05/26/21 at 1250, Until 05/26/21 at 1348, Anesthesia Intra-op, Routine ketamine (Ketalar) (10 mg/mL) IV bolus Given 05/26/2021 10:03 AM EDT 75 mg injection (Anesthesia) Intravenous, PRN, Starting on 05/26/21 at 1003, Until 05/26/21 at 1348, Anesthesia Intra-op lactated ringers infusion New Bag 05/26/2021 10:00 AM EDT Intravenous, CONTINUOUS PRN, Starting on 05/26/21 at 1000, Until 05/26/21 at 1348, Anesthesia Intra-op lactated ringers infusion New Bag 05/26/2021 11:07 AM EDT Intravenous, CONTINUOUS PRN, Starting on 05/26/21 at 1107, Until 05/26/21 at 1348, Anesthesia Intra-op metroNIDAZOLE (Flagyl) 500 mg in New Bag 06/09/2021 8:29 PM ED T 500 mg 200 mL/hr sodium chloride 0.9% 100 mL infusion 500 mg, Intravenous, EVERY 8 HOURS, 45 doses, First dose on 05/26/21 at 0415, Last dose on 06/09/21 at 2100, Administer over 30 Minutes, Indication for (Active or Suspected): C. difficile infection New Bag 06/09/2021 12:57 PM EDT 500 mg 200 mL/hr New Bag 06/09/2021 5:57 AM EDT 500 mg 200 mL/hr midazolam (pf) (Versed) (1 mg/mL) multi-dose Given 10:24 AM EDT 2 mg injection Intravenous, PRN, Starting on 05/26/21 at 1024, Until 05/26/21 at 1348, Anesthesia Intra-op, Routine NORepinephrine (Levophed) (128 New Bag 05/26/2021 10:10 AM 38 mcg/min 17.813 mL/hr mcg/mL) in sodium chloride 0.9% EDT 250 mL infusion (High Concentration) 0-100 mcg/min (0-46.875 mL/hr, rounded to 0-46.9 mL/hr), Intravenous, CONTINUOUS, Starting on 05/26/21 at 0930, Until 05/26/21 at 1417, Titrate to keep MAP greater than 65 mmHg. Start at 2 mcg/min and increase by 2 mcg/min every 3 minutes until goal reached. Do not exceed 200 mcg/min. Warning Vesicant/Irritant Medication *High Concentration: 128 mcg/mL* For Central Line Use Only, STAT PHENYLephrine in NS (PF) (ALEX-SYNEPHRINE) Given 05/26/2021 1 0:04 AM EDT 160 mcg 0.8 mg/10 mL (80 mcg/mL) multi-dose injection Syrg Intravenous, PRN, Starting on 05/26/21 at 1004, Until 05/26/21 at 1348, Anesthesia Intra-op, Routine propofoL (Diprivan) 10 mg/mL bolus injection Given 1:41 PM EDT 30 mg (Anesthesia) Intravenous, PRN, Starting on 05/26/21 at 1003, Until 05/26/21 at 1348, Anesthesia Intra-op Given 05/26/2021 10:03 AM EDT 75 mg rocuronium (Zemuron) (10 mg/mL) multi-dose Given 05/26/2021 10:03 AM EDT 100 mg injection Intravenous, PRN, Starting on 05/26/21 at 1003, Until 05/26/21 at 1348, Anesthesia Intra-op, Routine sodium chloride 0.9% infusion New Bag 05/26/2021 11:23 AM EDT Intravenous, CONTINUOUS PRN, Starting on 05/26/21 at 1123, Until 05/26/21 at 1348, Anesthesia Intra-op vasopressin (Vasostrict) injection Given 05/26/2021 10:07 AM EDT 2 Units Intravenous, PRN, Starting on 05/26/21 at 1007, Until 05/26/21 at 1348, Anesthesia Intra-op, Routine vasopressin 20 units in Rate/Dose Change 05/26/2021 10:08 0.08 Unit s/min 24 mL/hr sodium chloride 0.9% 100 AM EDT mL infusion 0.04 Units/min (12 mL/hr), Intravenous, CONTINUOUS, Starting on 05/26/21 at 0100, Until 05/26/21 at 1417, DO NOT TITRATE: Do not exceed 0.04 units/min. Warning Vesicant/Irritant Medication Rate/Dose Change 05/26/2021 9:15 AM EDT 0.04 Units/min 12 mL/hr New Bag 05/26/2021 7:31 AM EDT 0.08 Units/min 24 mL/hr documented in this encounter Additional Health Concerns Infection Onset Date Last Indicated Resolved Time Rule Out C. difficile 05/25/2021 05/25/2021 05/26/2021 4:05 PM EDT documented as of this encounter Care Teams Sports Fitness And Wellness Director Relationship Specialty Start Date End Date Beatriz Maurice PA PCP - General Family Medicine 05/06/21 [address] [place] [address] documented as of this encounter
--- OUTSIDE RECORDS SUMMARY | 2022-02-14 11:19 | XMS_ITS | Encounter Summary ---
:1960 Author Organization [facility] [place] [address] Care Team Providers Name Role Phone Beatriz Maurice Primary Care Provider Encounter Details Date Type Department Care Team Description 05/13/2021 Hospital [place] [address] Social History Tobacco Use Types Packs/Day [...] daily. loperamide (Imodium Take 1 capsule by 30 tablet 0 1 08/08/2021 A-D) 2 mg Capsule mouth 2 times daily as needed for Diarrhea (Take once daily or twice daily based on the consistency of your stool.). metoprolol tartrate Take 0.5 tablets by 60 tablet 0 021 08/08/2021 (Lopressor) 25 mg mouth every 6 hours. Tablet famotidine (Pepcid) 20 Take 2 tablets by 30 tablet 12 202011/22/2021 mg Tablet mouth daily. tamsulosin (Flomax) 0.4 Take 0.4 mg by mouth 0 05/25/2021 mg Capsule nightly. CIS Free Text Med - ASA 0 01/13/2006 1 pantoprazole (PROTONIX) 40mg, PO, Once daily 0 05/25/2021 40 mg tablet flecainide (TAMBOCOR) 50mg, PO, Twice daily 0 05/25/2021 50 mg tablet documented as of this encounter Plan of Treatment Upcoming Encounters Date Type Specialty Care Team Description 02/18/2022 Infusion Hematology and Oncology 02/21/2022 Infusion Hematology and Oncology 02/24/2022 Appointment Hematology and Oncology 02/24/2022 Office Visit Hematology and Oncology Parviz Modi MD [facility] DR HEMATOLOGY/[place] [address] Miroslava Pelayo APRN [facility] DR HEMATOLOGY/[place] [address] 02/24/2022 Office Visit Wound Care 02/24/2022 Appointment Hematology and Oncology 02/26/2022 Office Visit Neurology Leni Bustamante MD [facility] DR NEUROLOGY DEPT. [place], [place] [address] (Wo rk) documented as of this encounter Procedures Procedure Name Priority Date/Time Associated Diagnosis Comme nts HLA TYPING ARC Routine 05/13/2021 12:00 PM Result s for this BLOOD SERVICES EDT procedure are in the results section. documented in this encounter Results HLA Typing ARC Blood Services (05/13/2021 12:00 PM EDT) [facility] Method Time Signature HLA Typing-ARC See Scan [facility] Report [facility] Specimen Anatomical Collection Method Collection Time Receive d Time (Source) Location / / Volume Laterality Blood Venous Draw / 05/13/2021 12:00 08/01/2021 3:35 Unknown PM EDT PM EST Resulting Agency Comment Spec In Lab Parviz Modi MD BLOOD BANK ORDERABLES Performing Organization Address City/State/ZIP [place] [address] documented in this encounter Visit Diagnoses Not on filedocumented in this encounter Additional Health Concerns Infection Onset Date Last Indicated Resolved Time Rule Out C. difficile 05/13/2021 05/13/2021 05/14/2021 1:48 PM EDT documented as of this encounter Care Teams Warehouse Distribution Manager Relationship Specialty Start Date End Date Beatriz Maurice PA PCP - General Family Medicine 05/06/21 [address] [place] [address] documented as of this encounter
--- OUTSIDE RECORDS SUMMARY | 2022-02-14 11:19 | XMS_ITS | Encounter Summary ---
:1960 Author Organization 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 [address] Miroslava Pelayo APRN [facility] [address] HEMATOLOGY/[place] [address] 02/24/2022 Office Visit Wound Care 02/24/2022 Appointment Hematology and Oncology 02/26/2022 Office Visit Neurology Leni Bustamante MD [facility] [address] NEUROLOGY DEPT. [place], [place] [address] (Wo rk) Scheduled Orders Name Type Priority Associated Diagnoses Order S chedule CBC (with Diff) Lab Routine Acute leukemia not Expect ed: 06/24/2021, having achieved Expires: 05/2022 remission Comprehensive metabolic Lab Routine Acute leukemia no t Expected: 06/24/2021, panel (non-fasting) having achieved Expir es: 12/24/2021 remission documented as of this encounter Procedures Procedure Name Priority Date/Time Associated Diagnosis Comme nts TYPE AND SCREEN STAT 06/24/2021 12:05 Results for this VALIDITY PM EST procedure are i n the results section. ABORH RECHECK STATUS STAT 06/24/2021 12:05 Res ults for this PM EST procedure are i n the results section. SCAN, PERIPHERAL STAT 06/24/2021 12:05 Results for this BLOOD PM EST procedure are i n the results section. HEMOGRAM STAT 06/24/2021 12:05 Acute myeloid Results fo r this PM EST leukemia not having procedur e are in achieved remissi on the results Anemia, unspecified section. 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 ce S/P partial resection of colon DIFFERENTIAL, STAT 06/24/2021 12:05 Acute myeloid Results f or this AUTOMATED PM EST leukemia not having procedur e are in achieved remissi on the results Anemia, unspecified section. 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 ce S/P partial resection of colon ABO/RH TYPING STAT 06/24/2021 12:05 Acute myeloid Results f or this PM EST leukemia not having procedur e are in achieved remissi on the results Anemia, unspecified section. 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 ce S/P partial resection of colon HC CBC,PLT & AUTO STAT 06/24/2021 12:05 Acute myeloid DIFF PM EST leukemia not having achieved remissi on Anemia, unspecified 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 ce S/P partial resection of colon ANTIBODY SCREEN STAT 06/24/2021 12:05 Acute myeloid Results for this PM EST leukemia not having procedur e are in achieved remissi on the results Anemia, unspecified section. 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 ce S/P partial resection of colon HC ABO-MICROTITER STAT 06/24/2021 12:05 Acute myeloid PM EST leukemia not having achieved remissi on Anemia, unspecified 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 ce S/P partial resection of colon HC VENIPUNCTURE Routine 06/24/2021 12:05 Acute myeloid Results for this PM EST leukemia not having procedur e are in achieved remissi on the results Anemia, unspecified section. 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 ce S/P partial resection of colon documented in this encounter Results Uric acid (07/01/2021 9:08 AM EST) athologist Signature Uric Acid 6.9 3.5 - 8.5 [facility] LABOR[facility]ORY Specimen Anatomical Collection Method Collection Time Receive d Time (Source) Location / / Volume Laterality Blood 07/01/2021 9:08 AM 9:23 EST AM EST Resulting Agency Comment Spec In Lab Parviz Modi MD CHEMISTRY ORDERABLES Performing Organization Address City/State/ZIP Code Phon e Number [address] (ABNORMAL) Phosphorus (07/01/2021 9:08 AM EST) athologist Signature Phosphorus 4.6 (H) 2.5 - 4.5 [facility] mg/dL [facility] Specimen Anatomical Collection Method Collection Time Receive d Time (Source) Location / / Volume Laterality Blood 07/01/2021 9:08 AM 9:23 EST AM EST Resulting Agency Comment Spec In Lab Parviz Modi MD CHEMISTRY ORDERABLES Performing Organization Address City/[facility]/ZIP Code Phon e Number [address] (ABNORMAL) Magnesium (07/01/2021 9:08 AM EST) athologist Signature Magnesium 0.62 (L) 0.69 - 1.07 [facility] mmol/L [facility] Specimen Anatomical Collection Method Collection Time Receive d Time (Source) Location / / Volume Laterality Blood 07/01/2021 9:08 AM 9:23 EST AM EST Resulting Agency Comment Spec In Lab Parviz Modi MD CHEMISTRY ORDERABLES Performing Organization Address City/[facility]/ZIP Code Phon e Number [address] Type and Screen Validity (06/24/2021 12:05 PM EST) [facility] Method Time Signature T&S only valid [facility] LABORATORY Comment: This Type and Screen result is only valid at the [facility] Hospital Specimen Anatomical Collection Method Collection Time Receive d Time (Source) Location / / Volume Laterality Blood 06/24/2021 12:05 06/24/2021 PM EST 12:19 PM EST Resulting Agency Comment Spec In Lab Parviz Modi MD BLOOD BANK ORDERABLES Performing Organization Address City/[facility]/[place] [address] Scan, Peripheral Blood (06/24/2021 12:05 PM EST) [facility] Method Time Signature Plat Estimate Normal [facility] LABORATORY RBC Morphology Abnormal [facility] Macrocytes 1-5 /HPF [facility]ORY Ovalocytes 1-5 /HPF [facility] LABORATORY Giant Less than 1 /HPF [facility] LABORATORY Specimen Anatomical Collection Method Collection Time Receive d Time (Source) Location / / Volume Laterality Blood 06/24/2021 12:05 06/24/2021 PM EST 12:09 PM EST Resulting Agency Comment Spec In Lab Parviz Modi MD HEMATOLOGY ORDERABLES Performing Organization Address City/[facility]/ZIP Code Phon e Number [address] ABORH Recheck Status (06/24/2021 12:05 PM EST) [facility] Method Time Signature ABORH Type Completed [facility] LABORATORY Specimen Anatomical Collection Method Collection Time Receive d Time (Source) Location / / Volume Laterality Blood 06/24/2021 12:05 06/24/2021 PM EST 12:19 PM EST Resulting Agency Comment Spec In Lab Parviz Modi MD BLOOD BANK ORDERABLES Performing Organization Address City/[facility]/ZIP Code Phon e Number [address] Antibody screen (06/24/2021 12:05 PM EST) [facility] Method Time Signature Ab Screen Negative [facility] LABORATORY Expires at 06/27/2021 JIA PIERREARASELI 2009 on: [facility] LAB[facility]ORY Specimen Anatomical Collection Method Collection Time Receive d Time (Source) Location / / Volume Laterality Blood 06/24/2021 12:05 06/24/2021 PM EST 12:19 PM EST Resulting Agency Comment Spec In Lab Parviz Modi MD BLOOD BANK ORDERABLES Performing Organization Address City/State/ZIP Code Phon e Number [address] ABO/Rh Typing (06/24/2021 12:05 PM EST) P athologist Signature ABORh Type O Pos [facility] LABORATORY Specimen Anatomical Collection Method Collection Time Receive d Time (Source) Location / / Volume Laterality Blood 06/24/2021 12:05 06/24/2021 PM EST 12:19 PM EST Resulting Agency Comment Spec In Lab Parviz Modi MD BLOOD BANK ORDERABLES Performing Organization Address City/[facility]/[place] [address] (ABNORMAL) Differential, Automated (06/24/2021 12:05 PM EST) Patholo gist Method Time Signature Neutrophils % 72.4 % [facility] LABORATORY Neutr Abs (ANC) 10.44 (H) 1.70 - [facility] 6.10 [facility] x10(3)/[facility] LABORATORY Lymphocytes % 9.3 % [facility] LABORATORY Lymphocytes Abs 1.3 0.9 - 3.2 [facility] x10(3)/[facility] LABORATORY Monocytes % 5.9 % [facility] LABORATORY Monocyte Abs 0.8 0.3 - 0.9 [facility] x10(3)/[facility] LABORATORY Eosinophils % 3.0 % [facility] LABORATORY Eosinophils Abs 0.4 0.0 - 0.4 [facility] x10(3)/[facility] LABORATORY Basophils % 0.7 % [facility] LABORATORY Basophils Abs 0.1 0.0 - 0.1 [facility] x10(3)/[facility] LABORATORY Immature Gran % 8.70 % [facility] Comment: Immature granulocytes(IG's)percentage an d absolute count will include metamyelocytes, myelocytes, and promyelo cytes. Blood smears from CBCs yielding IG's will be scanned manually for concmargie danshahana. If this scan disagrees with the automated IG or if promyelocytes are not ed, a manual differential will be performed. Zara Gran Abs 1.26 (H) 0.00 - 0.04 x10(3)/[facility] LABORATORY Specimen Anatomical Collection Method Collection Time Receive d Time (Source) Location / / Volume Laterality Blood 06/24/2021 12:05 06/24/2021 PM EST 12:09 PM EST Resulting Agency Comment Spec In Lab Parviz Modi MD HEMATOLOGY ORDERABLES Performing Organization Address City/State/ZIP [place] [address] (ABNORMAL) Hemogram (06/24/2021 12:05 PM EST) Analysis Performed At Patho logist Time Signature WBC 14.4 (H) 4.0 - 9.5 [facility] x10(3)/[facility] LABORATORY RBC 2.88 (L) 4.58 - [facility] ARASELI 5.54 [facility] x10(6)/[facility] LABORATORY Hemoglobin 9.3 (L) 13.7 - [facility] 16.5 g/dL [facility] LABORATORY Hematocrit 28.6 (L) 40.5 - [facility] ARASELI 48.5 % [facility] LABORATORY MCV 99.3 (H) 82.9 - [facility] ARASELI 93.1 [facility] LABORATORY MCH 32.3 (H) 27.5 - [facility] ARASELI 32.1 pg [facility] LABORATORY MCHC 32.5 32.0 - [facility] ARASELI 35.7 g/dL [facility] LABORATORY Platelets 230 145 - 357 [facility] x10(3)/[facility] LABORATORY RDWSD 73.9 (H) 36.0 - JIA ARASELI 45.0 [facility] LABORATORY RDWCV 20.6 (H) 11.4 - [facility] ARASELI 13.8 % [facility] LABORATORY MPV 10.8 7.6 - 12.9 [facility] LABORATORY nRBC % Auto 0.0 % [facility] LABORATORY nRBC Abs Auto 0.000 0.000 - [facility] 0.000 [facility] x10(3)/[facility] LABORATORY Specimen Anatomical Collection Method Collection Time Receive d Time (Source) Location / / Volume Laterality Blood 06/24/2021 12:05 06/24/2021 PM EST 12:09 PM EST Resulting Agency Comment Spec In Lab Parviz Modi MD HEMATOLOGY ORDERABLES Performing Organization Address City/State/ZIP [place] [address] (ABNORMAL) Comprehensive metabolic panel (non-fasting) (06/24/2021 12:05 PM EST) athologist Signature Glucose Lvl 92 65 - 199 [facility] mg/dL [facility] LABORATORY Comment: Diabetes: >=200 mg/dL plus symp toms BUN 20 10 - 20 mg/dL [facility] LABORATORY Creatinine 1.01 0.80 - 1.50 mg/dL [facility] LABORATORY Sodium 137 135 - [...] estions. Chloride 103 98 - 107 mmol/L [facility] LABORATORY CO2 22 22 - 31 mmol/L [facility] LABORATORY Anion Gap 12 5 - 15 mmol/L [facility] LABORATORY Calcium 9.7 8.5 - 10.5 mg/dL [facility] LABORATORY Total Protein 8.5 (H) 6.1 - 8.0 g/dL [facility] LABORATORY Albumin 3.7 3.2 - 5.2 g/dL [facility] LABORATORY AST 22 0 - 39 unit/L [facility] LABORATORY ALT 38 0 - 55 unit/L [facility] LABORATORY Alk Phos 177 (H) 40 - 130 unit/L [facility] LABORATORY Total Bilirubin 0.3 0.2 - 1.3 mg/dL [facility] LABORATORY Estimated GFR 80 >=60 mL/min/1.73 m?? [facility] LABORATORY Comment: This patient? [...] (Source) Location / / Volume Laterality Blood 06/24/2021 12:05 06/24/2021 PM EST 12:08 PM EST Resulting Agency Comment Spec In Lab Parviz Modi MD CHEMISTRY ORDERABLES Performing Organization Address City/State/ZIP Code Phon e Number [place] [phone] documented in this encounter Visit Diagnoses Diagnosis Acute leukemia not having achieved remis sharon - Primary Acute leukemia of unspecified cell type, without mention of having achieved remission Acute myeloid leukemia not having achiev [...] documented as of this encounter Care Teams Roller Turner Relationship Specialty Start Date End Date Beatriz Maurice PA PCP - General Family Medicine 05/06/21 [address] [place] [address] documented as of this encounter
--- OUTSIDE RECORDS SUMMARY | 2022-02-14 11:19 | XMS_ITS | Encounter Summary ---
:1960 Author Organization [facility] [place] [address] Care Team Providers Name Role Phone Beatriz Maurice Primary Care Provider Reason for Visit Reason Onset Date Comments Other 06/19/2021 Screen patient for P FA Encounter Details Date Type Department Care Team Description 06/19/2021 Telephone Hematology and Nichelle Barnard, Jerri ( Screen patient Oncology at [facility] MAILING MANAGER for PFA) [place] [address] Social History Tobacco Use Types Packs/Day [...] Telephone Encounter - Nichelle Barnard MSW - 06/19/2021 10:35 AM EDT MAILING MANAGER emailed the following referral to [place] asking them to screen Herber for PFA: I have a 60-year-old patient with AML (Herber Iverson, #[id number]) who is currently inpatient, has been 7 weeks in the hospital, and will unable to return to work. He is a candidate for an Allogeneic Stem Cell Transplant and will not be able to work for at least 6 months. He has no S/T or L/T work disability. I encouraged him to apply for SSDI right away but if approved he would not receive a first disability check for 5 months. Herber lives with his girlfriend and her mother. He has [employer] and for now they are saying they will hold his job and let him pay his back premiums once he returns to work. They will contact his oncologist every 30 days for an update. Could you please have someone reach out to screen him for PFA? He has not received any bills yet for his hospital stays.His phone # is . SW Intervention: Patient Financial Assistance/Insurance documented in this encounter Plan of Treatment Upcoming Encounters Date Type Specialty Care Team Description 02/18/2022 Infusion Hematology and Oncology 02/21/2022 Infusion Hematology and Oncology 02/24/2022 Appointment Hematology and Oncology 02/24/2022 Office Visit Hematology and Oncology Parviz Modi MD [facility] DR HEMATOLOGY/[place] [address] Miroslava ePlayo APRN [facility] HEMATOLOGY/[place] [address] 02/24/2022 Office Visit Wound Care 02/24/2022 Appointment Hematology and Oncology 02/26/2022 Office Visit Neurology Leni Bustamante MD [facility] NEUROLOGY DEPT. [place], [place] [address] (Wo rk) documented as of this encounter Visit Diagnoses Not on filedocumented in this encounter Additional Health Concerns Infection Onset Date Last Indicated Resolved Time C. difficile 05/25/2021 05/25/2021 08/20/2021 5:29 AM EST Rule Out C. difficile 06/19/2021 06/19/2021 06/19/2021 9:27 AM EDT documented as of this encounter Care Teams Plastic Cnc Machine Operator Relationship Specialty Start Date End Date Beatriz Maurice PA PCP - General Family Medicine 05/06/21 [address] [place] [address] documented as of this encounter
--- OUTSIDE RECORDS SUMMARY | 2022-02-14 11:19 | XMS_ITS | Encounter Summary ---
:1960 Author Organization [facility] [place] [address] Care Team Providers Name Role Phone Beatriz Maurice Primary Care Provider Encounter Details Date Type Department Care Team Description 05/10/2021 Orders [facility] [address] [place] [address] HEMATOLOGY/ONCOLOGY [phone] DEPT. [place], [place] [address] (Wo rk) Social History Tobacco [...] MD [facility] DR HEMATOLOGY/[place] [address] Miroslava Pelayo APRN [facility] DR HEMATOLOGY/[place] [address] 02/24/2022 Office Visit Wound Care 02/24/2022 Appointment Hematology and Oncology 02/26/2022 Office Visit Neurology Leni Bustamante MD [facility] NEUROLOGY DEPT. [place], [place] [address] (Wo rk) documented as of this encounter Visit Diagnoses Not on filedocumented in this encounter Care Teams Shipping Agent Relationship Specialty Start Date End Date Beatriz Maurice PA PCP - General Family Medicine 05/06/21 [address] [place] [address] documented as of this encounter
--- OUTSIDE RECORDS SUMMARY | 2022-02-14 11:19 | XMS_ITS | Encounter Summary ---
:1960 Author Organization [facility] [place] [address] Care Team Providers Name Role Phone Beatriz Maurice Primary Care Provider Encounter Details Date Type Department Care Team Description 06/19/2021 Notes Only Hematology and Oncology [place] [address] Social History Tobacco Use Types Packs/Day [...] encounter Progress Notes Nichelle Barnard MSW - 06/19/2021 8:15 AM EDT Referral by Annika Geller, BMT Nurse Coordinator for Patient having had a traumatic induction for AML and quite distressed that he will not be able to return to work. JENNIFER met with Herber cardoso with his close friend Claudy. We discussed FMLA, work disability, SSDI, Health Insurance, Patient Financial Assistance, and cancer grants. FMLA & Health Insurance: APPLICATION DEVELOPMENT LIAISON explained what FMLA is and that it protects his health insurance and job for 12 weeks. Herber said his sick leave is ending about now and he has no S/T or L/T work disability. He is currently on a [place] and his boss seems to think they will hold his job until he gets through [employer]. They will contact his oncologist every 30 days for an update. His insurance will continue andhe can pay back the premiums once he goes back to work. He does not expect to be able to RTW for at least six months d/t his upcoming ALLO transplant. Patient Financial Assistance: Herber said he has been in the hospital for 7 weeks and has not receiveda bill yet. He has [facility] Health Plans insurance. APPLICATION DEVELOPMENT LIAISON explained that, if he is income eligible, PFAcan adjust off 25 - 100% of his co- pay amount. APPLICATION DEVELOPMENT LIAISON told him we want him to be able to focus on getting better and offered to make a referral to [facility] (Frank) to reach out and screen him for PFA. Herber agrees with this. SSDI: APPLICATION DEVELOPMENT LIAISON explained what SSDI is and encouraged Herber to apply right away. This account underwriter gave him Triage Cancer's Quick Guide to SSDI and SSI, the SSA's phone # ( ) to make an appointment to apply by phone, and website (www.ssa.gov) if he prefers to apply online. He has no income now and is very worried about finances. [place]: APPLICATION DEVELOPMENT LIAISON offered [employer] citlali, [employer] grocery card, [facility] citlali, and Walter godwin. However, as Herber lives with his S/O and her mother, and none of the household bills are in his name, we can only apply for the [employer] grocery card (Gonzalez Chopper), Walter godwin, and [facility]. APPLICATION DEVELOPMENT LIAISON gave him a worksheet to fill out for the [employer] grocery card. Herber's friend Claudy asked about LLS.org but the co-pay assistance program is currently closed for AML. APPLICATION DEVELOPMENT LIAISON encouraged them to apply online for the $100 New Patient Aid citlali. Support: APPLICATION DEVELOPMENT LIAISON gave Mayuri PFSS Program Guide, [employer] Support [employer] card, Patient Financial Assistance brochure, [facility] Social Work brochure, and this account underwriter's business card. Herber said his head was spinning with all the information APPLICATION DEVELOPMENT LIAISON provided and he looked clearly overwhelmed. This account underwriter told him she willstay in touch with him, to call her with any questions that he may have, and let her know how his application for SSDI goes. SW Intervention: Brief assessment Food insecurity resources Financial resources Patient Financial Assistance/Insurance documented in this encounter Plan of Treatment Upcoming Encounters Date Type Specialty Care Team Description 02/18/2022 Infusion Hematology and Oncology 02/21/2022 Infusion Hematology and Oncology 02/24/2022 Appointment Hematology and Oncology 02/24/2022 Office Visit Hematology and Oncology Parviz Modi MD [facility] DR HEMATOLOGY/[place] [address] Miroslava Pelayo APRN [facility] DR HEMATOLOGY/[place] [address] 02/24/2022 Office Visit Wound Care 02/24/2022 Appointment Hematology and Oncology 02/26/2022 Office Visit Neurology Leni Bustamante MD [facility] DR NEUROLOGY DEPT. [place], [place] [address] (Wo rk) documented as of this encounter Visit Diagnoses Not on filedocumented in this encounter Additional Health Concerns Infection Onset Date Last Indicated Resolved Time C. difficile 05/25/2021 05/25/2021 08/20/2021 5:29 AM EST Rule Out C. difficile 06/19/2021 06/19/2021 06/19/2021 9:27 AM EDT documented as of this encounter Care Teams Reconnaissance Man Relationship Specialty Start Date End Date Beatriz Maurice PA PCP - General Family Medicine 05/06/21 [address] [place] [address] documented as of this encounter
--- OUTSIDE RECORDS SUMMARY | 2022-02-14 11:19 | XMS_ITS | Encounter Summary ---
:1960 Author Organization [facility] Address [facility] [address] [place] [address] Care Team Providers Name Role Phone Beatriz Maurice Primary Care Provider Encounter Details Date Type Department Care Team Description 05/26/2021 Telephone Hematology and Oncology at Rimma Ding MD [facility] Catie narvaez HEMATOLOGY/[place] [address] [place] [address] [phone] (Wo rk) Social History Tobacco Use Types [...] this encounter Miscellaneous Notes Telephone Encounter - Rimma Ding MD - 05/26/2021 3:58 PM EDT Reason for call: Question regarding midostaurin and allopurinol. Herber Iverson Jr. is a 60 y.o. 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 Currently in ICU and on multiple pressors and also requiring multiple blood pr oduct transfusions. He is intubated and strictly NPO. Team is asking if midostaurin should be continued. Recommendations: At this time, would recommend to hold Midostaurin due to ongoing issues and also to prevent interference with recovering and wound healing. Would also recommend to hold Allopurinol. Continue to check uric acid daily and can give IV 3 mg Rasburicase x 1 for serum uric acid >8. Patient's day 14 marrow is hypocellular as expected and there is no evidence of residual leukemia. His cytopenia are expected from the chemotherapy and will slowly recover. Although recovery may take longer due to infection. Hematology team will continue to follow. Rimma Ding MD, MS Hematology/Medical Oncology Fellow [facility] Page # [phone] 05/26/21, 4:04 PM documented in this encounter Plan of Treatment Upcoming Encounters Date Type Specialty Care Team Description 02/18/2022 Infusion Hematology and Oncology 02/21/2022 Infusion Hematology and Oncology 02/24/2022 Appointment Hematology and Oncology 02/24/2022 Office Visit Hematology and Oncology Parviz Modi MD [facility] DR HEMATOLOGY/[place] [address] Miroslava Pelayo APRN [facility] HEMATOLOGY/[place] [address] 02/24/2022 Office Visit Wound Care 02/24/2022 Appointment Hematology and Oncology 02/26/2022 Office Visit Neurology Leni Bustamante MD [facility] NEUROLOGY DEPT. [place], [place] [address] (Wo rk) documented as of this encounter Visit Diagnoses Not on filedocumented in this encounter Additional Health Concerns Infection Onset Date Last Indicated Resolved Time Rule Out C. difficile 05/25/2021 05/25/2021 05/26/2021 4:05 PM EDT documented as of this encounter Care Teams Electrician Shop Relationship Specialty Start Date End Date Beatriz Maurice PA PCP - General Family Medicine 05/06/21 [address] [place] [address] documented as of this encounter
--- OUTSIDE RECORDS SUMMARY | 2022-02-14 11:19 | XMS_ITS | Encounter Summary ---
:1960 Author Organization [facility] [place] [address] Care Team Providers Name Role Phone Ra Farfan MD Herber Primary Care Provider Encounter Details Date Type Department Care Team Description 04/29/2021 Ancillary Procedure [place] [address] Social History Tobacco Use Types Packs/Day [...] MD [facility] DR HEMATOLOGY/[place] [address] Miroslava Pelayo APRN [facility] HEMATOLOGY/[place] [address] 02/24/2022 Office Visit Wound Care 02/24/2022 Appointment Hematology and Oncology 02/26/2022 Office Visit Neurology Leni Bustamante MD [facility] NEUROLOGY DEPT. [place], [place] [address] (Wo rk) documented as of this encounter Procedures Procedure Name Priority Date/Time Associated Diagnosis Comme nts FILM LIBRARY Routine 04/29/2021 12:00 AM Results for this STORAGE ONLY DX EDT procedure ar e in CHEST the results section. documented in this encounter Results Film Library- Storage Only DX Chest (04/29/2021 12:00 AM EDT) Specimen (Source) Anatomical Location Collection Method / Collectio n Time Received Time / Laterality Volume Narrative ADRIAN - 07/11/2021 10:27 AM EST This exam is auto-finalizing. It's purpo se is for storage only. Beatriz DE LA FUENTE IMElaine FILM LIBRARY ORDERABLES Performing Organization Address City/State/ZIP Code Phon e Number [place], [place] documented in this encounter Visit Diagnoses Not on filedocumented in this encounter Care Teams Net Washer Relationship Specialty Start Date End Date Herber Knapp MD PCP - General 07/09/10 05/05/21 [address] [place] [address] documented as of this encounter
--- OUTSIDE RECORDS SUMMARY | 2022-02-14 11:19 | XMS_ITS | Encounter Summary ---
:1960 Author Organization [facility] Address [facility] [place] [address] Care Team Providers Name Role Phone Beatriz Maurice Primary Care Provider Encounter Details Date Type Department Care Team Description 05/07/2021 Orders Only Hematology and [place], Acute myeloi d leukemia [place]cology [place] [facility] [place] Khloe not having achieved [facility] [place] [address] HEMATOLOGY/ONCOLOG [phone] Y DEPT. [place] [address] Social History Tobacco Use Types Packs/Day [...] [facility] DR HEMATOLOGY/[place] [address] Miroslava Pelayo APRN [facility] DR HEMATOLOGY/[place] [address] 02/24/2022 Office Visit Wound Care 02/24/2022 Appointment Hematology and Oncology 02/26/2022 Office Visit Neurology Leni Bustamante MD [facility] DR NEUROLOGY DEPT. [place], [place] [address] (Wo rk) documented as of this encounter Visit Diagnoses Diagnosis Acute myeloid leukemia not having achiev ed remission documented in this encounter Care Teams Infection Control Preventionist Relationship Specialty Start Date End Date Beatriz Maurice PA PCP - General Family Medicine 05/06/21 [address] [place] [address] documented as of this encounter
--- OUTSIDE RECORDS SUMMARY | 2022-02-14 11:19 | XMS_ITS | Encounter Summary ---
:1960 Author Organization [facility] [place] [address] Care Team Providers Name Role Phone Beatriz Maurice Primary Care Provider Reason for Visit Auth/Cert Specialty Diagnoses / Procedures Referred By Contact Refer red To Contact Diagnoses Acute leukemia Procedures EMERGENCY IPI Referral ID Status Reason Start Date Expiration Date Visits Requ ested Visits Authorized [id number] 1 1 Encounter Details Date Type Department Care Team Description 05/06/2021 Hospital Encounter Hematology and Anemia, unspecified type; Oncology at [facility] Thrombocytopenia; [facility] [place], [place] [address] Social History Tobacco Use Types Packs/Day [...] tablet 12 202011/22/2021 mg Tablet mouth daily. CIS Free Text Med - ASA 0 [...] [facility] DR HEMATOLOGY/[place] [address] Miroslava Pelayo APRN [facility] DR HEMATOLOGY/[place] [address] 02/24/2022 Office Visit Wound Care 02/24/2022 Appointment Hematology and Oncology 02/26/2022 Office Visit Neurology Leni Bustamante MD [facility] ER DR NEUROLOGY DEPT. [place], [place] [address] (Wo rk) documented as of this encounter Procedures Procedure Name Priority Date/Time Associated Comments Diagnosis TYPE AND SCREEN VALIDITY Routine 05/06/2021 9:36 Results for this AM EDT procedure are i n the results section. IMMUNOPHENOTYPING FLOW Routine 05/06/2021 9:36 Anemia, Re sults for this CYTOMETRY AM EDT unspecified type procedure are in Thrombocytopenia the results Leukocytosis, section. unspecified type MYELOID SEQ PANEL Routine 05/06/2021 9:36 AM EDT ABORH RECHECK STATUS Routine 05/06/2021 9:36 Resu lts for this AM EDT procedure are i n the results section. SMEAR REVIEW REPORT Routine 05/06/2021 9:36 Resul ts for this AM EDT procedure are i n the results section. MOLECULAR GENETICS REPORT Routine 05/06/2021 9:36 Results for this AM EDT procedure are i n the results section. FLOW CYTOMETRY REPORT Routine 05/06/2021 9:36 Res ults for this AM EDT procedure are i n the results section. DIFFERENTIAL, MANUAL STAT 05/06/2021 9:36 Resu lts for this AM EDT procedure are i n the results section. HEMOGRAM STAT 05/06/2021 9:36 Anemia, Results for this AM EDT unspecified type procedure are in Thrombocytopenia the results Leukocytosis, section. unspecified type HC IRON BINDING CAPACITY Routine 05/06/2021 9:36 Anemia, Results for this AM EDT unspecified type procedure are in Thrombocytopenia the results Leukocytosis, section. unspecified type ABO/RH TYPING Routine 05/06/2021 9:36 Anemia, Results for this AM EDT unspecified type procedure are in Thrombocytopenia the results Leukocytosis, section. unspecified type HC PARTIAL THROMBOPLASTIN Routine 05/06/2021 9:36 Anemia, Results for this TIME AM EDT unspecified type procedure are in Thrombocytopenia the results Leukocytosis, section. unspecified type HC PROTHROMBIN TIME Routine 05/06/2021 9:36 Anemia, Resul ts for this AM EDT unspecified type procedure are in Thrombocytopenia the results Leukocytosis, section. unspecified type HC FIBRINOGEN TITER Routine 05/06/2021 9:36 Anemia, Resul ts for this AM EDT unspecified type procedure are in Thrombocytopenia the results Leukocytosis, section. unspecified type HC CBC,PLT & AUTO DIFF STAT 05/06/2021 9:36 Anemia, AM EDT unspecified type Thrombocytopenia Leukocytosis, unspecified type ANTIBODY SCREEN Routine 05/06/2021 9:36 Anemia, Results f or this AM EDT unspecified type procedure are in Thrombocytopenia the results Leukocytosis, section. unspecified type HC ANTIBODY Routine 05/06/2021 9:36 Anemia, DETECTION,CAPTURE-R AM EDT unspecified type Thrombocytopenia Leukocytosis, unspecified type HC URIC ACID, SERUM STAT 05/06/2021 9:36 Anemia, Resul ts for this AM EDT unspecified type procedure are in Thrombocytopenia the results Leukocytosis, section. unspecified type HC LACTIC DEHYDROGENASE Routine 05/06/2021 9:36 Anemia, R esults for this AM EDT unspecified type procedure are in Thrombocytopenia the results Leukocytosis, section. unspecified type HC FERRITIN, SERUM Routine 05/06/2021 9:36 Anemia, Result s for this AM EDT unspecified type procedure are in Thrombocytopenia the results Leukocytosis, section. unspecified type COMPREHENSIVE METABOLIC Routine 05/06/2021 9:36 Anemia, R esults for this PANEL (NON-FASTING) AM EDT unspecified type procedure are in Thrombocytopenia the results Leukocytosis, section. unspecified type documented in this encounter Results Molecular Genetics Report (05/06/2021 9:36 AM EDT) Component Value Ref Test Analysis Performed At [facility] Range Method Time Signature Molecular [id number] ? Location: [address] [place] [address] The signing pathologist has (i) examined the relevant preparation(s) for the [facility]IAL specimen(s) and (ii) rendered or confirmed the diagnosis(es) . HOSPITAL LABORATORY . ?Molecu lar Genetics RESULTS FMS-like Tyrosine Kinase 3 ( ??FLT3) Mutation Analysis Indication for study: ?? Acute myeloid leukemia Analysis: ?? 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 In the setting of acute myeloid leukemia, this finding is indicative of a worse progn osis. Presence of this mutation qualifies the patient for targeted therapy with t he kinase inhibitor midostaurin. Clinical correlation is recommended. Methods: ?? Highly purified genomic DNA was extracted from a whole blood or bone marrow. ??FLT3 mutation angela lysis was performed by PCR amplification of a target DNA sequence for the internal t andem duplication (ITD). The mutation is detected by capillary electrophoresis. Disclaimer : Other FLT3 ??va riants, such as tyrosine kinase domain mutations, are not detected by this assay. The se may be separately reported by myeloid gene sequencing panel analysis, if ordered. Although unlikely, additiona l rare variants (known or unknown), have the potential to interfere with the perfo rmance of this test, producing false negative or false positive results. When ryan typing results are not consistent with other clinical observations or test results, additional testing should be considered. This test was developed and its performance veronica acteristics determined by the [facility] ([facility]) Laboratory at [facility]. It has not been cleared or approved by the FDA. The laboratory is regulated under CLIA as qualified to perform high-complexity testing. This test is used for clinical purposes. It should not be regarded as investigational or for research. References: ??Magdiel KM, et al. J Molec Diagn 20 ;5:96-102.; Sofia S and Miguel FR. Clin Cancer R es 2009;15:1796-8595.; Stone RM, et al. N Engl J Med 2017;377:454-464. Electronically signed by: ?Balwinder Long, Keron Luis Verified: ??05/07/2021 10:35 ??Molecular Pathologist Performed at: ??-[facility] Dept. of Pathology, [place], [place] Specimen (Source) Anatomical Collection Method Collection Time Re ceived Time Location / / Volume Laterality 05/06/2021 9:36 AM EDT Parviz Modi MD PATHOLOGY/CYTOLOGY ORDERABLE S Performing Organization Address City/State/ZIP [place] [address] [facility] [address] Myeloid Seq Panel (05/06/2021 9:36 AM EDT) Specimen Anatomical Collection Method Collection Time Receive d Time (Source) Location / / Volume Laterality Blood 05/06/2021 9:36 AM 9:08 EDT AM EDT Resulting Agency Comment Spec In Lab Colby Coyne MD CHEMISTRY ORDERABLES Performing Organization Address City/State/ZIP Code [place] [address] [facility] [address] Smear Review Report (05/06/2021 9:36 AM EDT) Component Value Ref Test Analysis Performed At [facility] Range Method Time Signature Smear Review [id number] ? Location: [address] [place] [address] [place] MARX The signing pathologist has (i) examined the relevant preparation(s) for the [facility] specimen(s) and (ii) rendered or confirmed the diagnosis(es) . HOSPITAL LABORATORY . ? Sm ear Review DIAGNOSIS Peripheral blood, smear review: - Normocytic anemia, thrombocytopenia and leukocytosis with circulating ??myeloblasts, consistent with acute myeloid leukemia (see Discussion). Electronically signed by: ?Crystal STEPHENSON, Perlita Butts Verified: ??05/06/2021 13:51 ??Hematopathologist Performed at: ??-[facility] Dept. of Pathology, [place], [place] DISCUSSION Flow cytometry immunophenoty pe analysis was performed concurrently (see separate report) and identified a fr ank myeloblast population accounting ? for approximately 50% of total nucleated, non -erythroid cells with the immunophenotype, CD45(dim)+ CD34(subset)+ CD117(subset)+ HLADR++ CD13+ CD33+ CD7+ CD14- CD64- CD56- cMPO(partial)+. 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 There is an expanded cell populat ion localizing to the monocyte region, suggestive of a monocytic origin of this pr ocess. Results reviewed with Dr. Jose Modi on 05/06/21 12:30. Additional studies to further ch aracterize this acute leukemia will be performed on a bone marrow aspirate specimen which we understand to be forthcoming. ADDITIONAL STUDIES The white blood cell count i s ?? 77.01 K/uL. The predominating cells are blasts with round to slightly irre gular and occasionally folded nuclei, fine chromatin, prominent nucleoli and scan t, generally agranular cytoplasm. Nasim monocytes are prominent with occasional i mmature forms present. Mature neutrophils are present with normal morphology, and there is no absolute neutropenia (ANC = 3.85 K/uL). Normocytic anemia is eviden t (Hgb ?? 8.6 g/dL ; MCV 95.5 fL), and RBC morphology is notable for anisopoikilocyt osis with occasional elliptocytes and nucleated erythroid precursors present. There i s no increase in schistocytes or spherocytes, and rare rouleaux formation is noted . Platelets are decreased in number ( ?39 K/uL) but exhibit normal morphology with occasional giant platelets present. Neutrophils/bands 5%, Lympho cytes 16%, Monocytes 12%, Eosinophils 0%, Basophils 1%, Metamyelocytes 1%, Myelocytes 1%, Blast s 64%, Erythroid precursors 0/100 WBC. CLINICAL INFORMATION 60 yo man with leukocytosis. ?? Hematopathologist review of CBC and peripheral blood smear requested for evaluation. Specimen (Source) Anatomical Collection Method Collection Time Re ceived Time Location / / Volume Laterality 05/06/2021 9:36 AM EDT Parviz Modi MD PATHOLOGY/CYTOLOGY ORDERABLE S Performing Organization Address City/State/ZIP Code Phon e Number [place] [id number] [facility] [address] Flow Cytometry Report (05/06/2021 9:36 AM EDT) Component Value Ref Test Analysis Performed At [facility] Range Method Time Signature Flow [id number] ? Location: [address] [place] [address] Report The signing pathologist has (i) examined the relevant preparation(s) for the [facility] specimen(s) and (ii) rendered or confirmed the diagnosis(es) . HOSPITAL LABORATORY . ?Dru w Cytometry DIAGNOSIS Peripheral blood, flow cytometry: - Prominent myeloblast population with aberrant CD7 expressi on present, ??compatible with acute myeloid leukemia (see Discussion). Electronically signed by: ?Crystal STEPHENSON, Perlita Butts Verified: ??05/06/2021 12:44 ??Hematopathologist Performed at: ??-[facility] Dept. of Pathology, [place], [place] DISCUSSION Blasts account for approxima tely 50% of total nucleated, non-erythroid cells in this peripheral blood specimen a nd have the immunophenotype, CD45(dim)+ CD34(subset)+ CD117(subset)+ HLADR++ CD13 + CD33+ CD7+ CD14- CD64- CD56- cMPO(partial)+. Blasts are further negative for sC D3, cCD3, CD19, CD10, CD20, cCD79a and nTDT. In summary, these immunophenotypic find ings are consistent with involvement of the peripheral blood by ACUTE MYELOID LEUK EMIA. The presence of an expanded population localizing to the monocyte region sugg ests a monocytic lineage notwithstanding the absence of specific monocyte markers o n the nasim blasts. The presence of CD7 on blasts is a marker that can distinguish leukemic myeloblasts from normal myeloblasts and can be used to follow disease activity over time. Flow analysis is an ancillar y study. A definite diagnosis requires correlation with the morphologic features of this process and if necessary, correlation with other ancillary studies like immu nohistochemistry, enzyme cytochemistry and/or cyto/ molecular genetics. This test was developed and its performance veronica acteristics determined by the Clinical Flow Cytometry Lab oratory at [facility]. It has not been cleared or [...] complexity clinic al laboratory testing. SPECIMEN PROCESSING [id number] Cells for immunophenotypic a nalysis were derived from blood. CD45 vs side scatter gating was utilized to identify a CD45 dim analysis region that comprises approximately 52-53% of all cells. The following markers were a ssessed: CD3, CD7, CD10, CD13, CD14, CD19, CD20, CD34, CD45, CD56, CD64, (c)CD3, (c)CD79a, CD117, HLA-DR, (c )MPO, and nuclear TdT. CLINICAL INFORMATION 60 yo man with leukocytosis and circulating blasts. Specimen (Source) Anatomical Collection Method Collection Time Re ceived Time Location / / Volume Laterality 05/06/2021 9:36 AM EDT Parviz Modi MD PATHOLOGY/CYTOLOGY ORDERABLE S Performing Organization Address City/[facility]/ZIP Code Phon e Number [address] Type and Screen Validity (05/06/2021 9:36 AM EDT) [facility] gist Method Time Signature T&S only valid [facility] LABORATORY Comment: This Type and Screen result is only valid at the [facility] Specimen Anatomical Collection Method Collection Time Receive d Time (Source) Location / / Volume Laterality Blood 05/06/2021 9:36 AM 9:46 EDT AM EDT Resulting Agency Comment Spec In Lab Parviz Modi MD BLOOD BANK ORDERABLES Performing Organization Address City/[facility]/ZIP [place] [address] (ABNORMAL) Differential, Manual (05/06/2021 9:36 AM EDT) P athologist Signature Neutrophil % 5 % [facility] Lymphocyte % 16 % [facility] Monocyte % 12 % [facility] Basophil % 1 % [facility] Metamyelo % 1 % [facility] Myelocyte % 1 % [facility] Blasts % 64 % [facility] Comment: Sent for Pathologist Review See Pathology report [id number] Neutrophil Abs 3.8 1.7 - 6.1 x10(3)/[facility] LABORATORY Neutr Abs (ANC) 3.85 1.70 - 6.10 x10(3)/[facility] LABORATORY Lymphocyte Abs 12.3 (H) 0.9 - 3.2 x10(3)/[facility] LABORATORY Monocyte Abs 9.2 (H) 0.3 - 0.9 x10(3)/[facility] LABORATORY Basophil Abs 0.8 (H) 0.0 - 0.1 x10(3)/[facility] LABORATORY Metamyelo Abs 0.8 (H) 0.0 - 0.0 x10(3)/[facility] LABORATORY Myelocyte Abs 0.8 (H) 0.0 - 0.0 x10(3)/[facility] LABORATORY Blast Abs 49.3 (H) 0.0 - 0.0 x10(3)/[facility] LABORATORY Tot Diff Cell Ct [address] [facility] Plat Estimate Decreased [facility] RBC Morphology Normal [facility] Smudge Cells Present [facility] Giant Platelets Less than 1 /HPF [facility] LABORATORY Specimen Anatomical Collection Method Collection Time Receive d Time (Source) Location / / Volume Laterality Blood 05/06/2021 9:36 AM 9:45 EDT AM EDT Resulting Agency Comment Spec In Lab Parviz Modi MD HEMATOLOGY ORDERABLES Performing Organization Address City/[facility]/ZIP Code Phon e Number [address] ABORH Recheck Status (05/06/2021 9:36 AM EDT) [facility] Method Time Signature ABORH Recheck Order Placed [facility] LABORATORY ABORH Type Complete [facility] LABORATORY Specimen Anatomical Collection Method Collection Time Receive d Time (Source) Location / / Volume Laterality Blood 05/06/2021 9:36 AM 9:46 EDT AM EDT Resulting Agency Comment Spec In Lab Parviz Modi MD BLOOD BANK ORDERABLES Performing Organization Address City/[facility]/ZIP Code Phon e Number [address] Antibody screen (05/06/2021 9:36 AM EDT) [facility] Method Time Signature Ab Screen Negative [facility] Expires at 05/09/2021 JIA ARASELI [address]326 on: [facility] LABORATORY Specimen Anatomical Collection Method Collection Time Receive d Time (Source) Location / / Volume Laterality Blood 05/06/2021 9:36 AM 9:46 EDT AM EDT Resulting Agency Comment Spec In Lab Parviz Modi MD BLOOD BANK ORDERABLES Performing Organization Address City/[facility]/[place] [address] ABO/Rh Typing (05/06/2021 9:36 AM EDT) P athologist Signature ABORh Type O Pos [facility] LABORATORY Specimen Anatomical Collection Method Collection Time Receive d Time (Source) Location / / Volume Laterality Blood 05/06/2021 9:36 AM 9:46 EDT AM EDT Resulting Agency Comment Spec In Lab Parviz Modi MD BLOOD BANK ORDERABLES Performing Organization Address City/[facility] [place] [address] (ABNORMAL) Hemogram (05/06/2021 9:36 AM EDT) [facility] Method Time Signature WBC 77.0 4.0 - 9.5 [place] AR[place] (Critical) x10(3)/[facility] LABORATORY RBC 2.68 (L) 4.58 - [place] AR[place]I 5.54 [facility] x10(6)/[facility] LABORATORY Hemoglobin 8.6 (L) 13.7 - JIA ARASELI 16.5 gm/dL [facility] LABORATORY Hematocrit 25.6 (L) 40.5 - JIA ARASELI 48.5 % [facility] LABORATORY MCV 95.5 (H) 82.9 - J[place] ARASELI 93.1 fL [facility] LABORATORY MCH 32.1 27.5 - JIA ARASELI 32.1 pg [facility] LABORATORY MCHC 33.6 32.0 - JIA ARASELI 35.7 gm/dL [facility] LABORATORY Platelets 39 (L) 145 - 357 JIA ARASELI x10(3)/[facility] LABORATORY RDWSD 53.8 (H) 36.0 - [facility] ARASELI 45.0 [facility] LABORATORY RDWCV 15.7 (H) 11.4 - [facility] ARASELI 13.8 % [facility] LABORATORY MPV 12.4 7.6 - 12.9 [facility] LABORATORY nRBC % Auto 0.0 % [facility] LABORATORY nRBC Abs Auto 0.030 (H) 0.000 - JIA ARASELI 0.000 [facility] x10(3)/[facility] LABORATORY Specimen Anatomical Collection Method Collection Time Receive d Time (Source) Location / / Volume Laterality Blood 05/06/2021 9:36 AM 9:45 EDT AM EDT Resulting Agency Comment Spec In Lab Parviz Modi MD HEMATOLOGY ORDERABLES Performing Organization Address [facility] [place] [address] APTT (05/06/2021 9:36 AM EDT) P athologist Signature PTT 30 25 - 37 sec [facility] LABORATORY Comment: The PTT is NOT appropriate for heparin m onitoring. Use the Anti-Xa level for heparin monitoring (HEP UFH) or LMWH mon itoring (HEP LMW). A PTT less than 37 seconds generally indicates adequate hem ostasis. Specimen Anatomical Collection Method Collection Time Receive d Time (Source) Location / / Volume Laterality Blood 05/06/2021 9:36 AM 9:45 EDT AM EDT Resulting Agency Comment Spec In Lab Parviz Modi MD HEMATOLOGY ORDERABLES Performing Organization Address City/[facility] [place] [address] (ABNORMAL) Prothrombin Time (05/06/2021 9:36 AM EDT) P athologist Signature PT 15.7 (H) 9.4 - 12.5 [facility] LABORATORY INR 1.4 [facility] LABOR[facility]ORY Comment: An INR <2.0 [...] (Source) Location / / Volume Laterality Blood 05/06/2021 9:36 AM 9:45 EDT AM EDT Resulting Agency Comment Spec In Lab Parviz Modi MD HEMATOLOGY ORDERABLES Performing Organization Address City/State/ZIP [place] [address] (ABNORMAL) Comprehensive metabolic panel (non-fasting) (05/06/2021 9:36 AM EDT) P athologist Signature Glucose Lvl 108 65 - 199 [facility] mg/dL [facility] LABOR[facility]ORY Comment: Diabetes: >=200 mg/dL plus symp toms BUN 14 10 - 20 mg/dL [facility] Creatinine 1.53 (H) 0.80 - 1.50 mg/dL [facility] LABOR[facility] Sodium 136 135 - 145 mmol/L [facility] Potassium 3.2 (L) 3.5 - 5.0 mmol/L [facility] Comment: Please note: ??Patients with WBC >100,00 0 may have falsely elevated Potassium levels. ??For accurate Potassium quantif ication in these patients send serum separator tube (gold top) for subsequent determinations. ??Contact the Clinical Chemistry Laboratory if there are any qu estions. Chloride 99 98 - 107 mmol/L [facility] CO2 29 22 - 31 mmol/L [facility] Anion Gap 8 5 - 15 mmol/L [facility] Calcium 8.8 8.5 - 10.5 mg/dL [facility] Total Protein 8.6 (H) 6.1 - 8.0 gm/dL [facility] Albumin 3.5 3.2 - 5.2 gm/dL [facility] AST 26 0 - 39 unit/L [facility] ALT 13 0 - 55 unit/L [facility] Alk Phos 77 40 - 130 unit/L [facility] Total Bilirubin 0.5 0.2 - 1.3 mg/dL [facility] LABORATORY Estimated GFR 49 (L) >=60 mL/min/1.73 m?? [facility] [...] (Source) Location / / Volume Laterality Blood 05/06/2021 9:36 AM 1 9:45 EDT AM EDT Resulting Agency Comment Spec In Lab Parviz Modi MD CHEMISTRY ORDERABLES Performing Organization Address City/State/ZIP [place] [address] (ABNORMAL) Iron and TIBC (05/06/2021 9:36 AM EDT) Analysis Performed At Patho logist Time Signature Iron 144 45 - 160 [facility] mcg/dL [facility] TIBC 195 (L) 250 - 450 [facility] mcg/dL [facility] Iron Saturation 74 (H) 20 - 50 % [facility] Specimen Anatomical Collection Method Collection Time Receive d Time (Source) Location / / Volume Laterality Blood 05/06/2021 9:36 AM 1 9:45 EDT AM EDT Resulting Agency Comment Spec In Lab Parviz Modi MD CHEMISTRY ORDERABLES Performing Organization Address City/[facility]/[place] [address] (ABNORMAL) Ferritin (05/06/2021 9:36 AM EDT) athologist Signature Ferritin 824 (H) 30 - 400 J[place] ARASELI ng/mL [facility] Comment: Pediatric reference ranges not verified at [facility], interpret with caution. Reference ranges for females greater miguel a n 50 years of age approach values for men, i.e., 30-400 ng/mL. Specimen Anatomical Collection Method Collection Time Receive d Time (Source) Location / / Volume Laterality Blood 05/06/2021 9:36 AM 1 9:45 EDT AM EDT Resulting Agency Comment Spec In Lab Parviz Modi MD CHEMISTRY ORDERABLES Performing Organization Address City/[facility]/[place] [address] [address] (ABNORMAL) Lactate Dehydrogenase (05/06/2021 9:36 AM EDT) athologist Signature LDH 859 (H) 110 - 220 [facility] Specimen Anatomical Collection Method Collection Time Receive d Time (Source) Location / / Volume Laterality Blood 05/06/2021 9:36 AM 1 9:45 EDT AM EDT Resulting Agency Comment Spec In Lab Parviz Modi MD CHEMISTRY ORDERABLES Performing Organization Address City/[facility]/[place]IP [place] [address] (ABNORMAL) Uric acid (05/06/2021 9:36 AM EDT) athologist Signature Uric Acid 10.3 (H) 3.5 - 8.5 JIA ARASELI mg/dL [facility] Specimen Anatomical Collection Method Collection Time Receive d Time (Source) Location / / Volume Laterality Blood 05/06/2021 9:36 AM 1 9:45 EDT AM EDT Resulting Agency Comment Spec In Lab Parviz Modi MD CHEMISTRY ORDERABLES Performing Organization Address City/State/ZIP Code Phon e Number [address] Immunophenotyping Flow Cytometry (05/06/2021 9:36 AM EDT) Component Value Ref Test Analysis Performed At Patholo gist Range Method Time Signature Immunophenotyping See JIA Flow Comment [facility] Comment: When completed by the Pathologist, the F low Cytometry Report ([id number]) will display under the Pathology Result s section within eDH. Specimen Anatomical Collection Method Collection Time Receive d Time (Source) Location / / Volume Laterality Other 05/06/2021 9:36 AM 9:45 EDT AM EDT Resulting Agency Comment Spec In Lab Parviz Modi MD HEMATOLOGY ORDERABLES Performing Organization Address City/State/ZIP Code Phon e Number [address] Fibrinogen (05/06/2021 9:36 AM EDT) P athologist Signature Fibrinogen 314 200 - 393 [facility] mg/dL [facility] Comment: A fibrinogen level >100 mg/dL is adequat e for hemostasis in most patients without underlying bleeding disorders. Specimen Anatomical Collection Method Collection Time Receive d Time (Source) Location / / Volume Laterality Blood 05/06/2021 9:36 AM 9:45 EDT AM EDT Resulting Agency Comment Spec In Lab Parviz Modi MD HEMATOLOGY ORDERABLES Performing Organization Address City/State/ZIP Code Phon e Number [address] documented in this encounter Visit Diagnoses Diagnosis Anemia, unspecified type Thrombocytopenia Thrombocytopenia, unspecified Leukocytosis, unspecified type documented in this encounter Care Teams Testing Engineer Relationship Specialty Start Date End Date Beatriz Maurice PA PCP - General Family Medicine 05/06/21 [address] [place] [address] documented as of this encounter
--- OUTSIDE RECORDS SUMMARY | 2022-02-14 11:19 | XMS_ITS | Encounter Summary ---
:1960 Author Organization [facility] Address [facility] [place] [address] Care Team Providers Name Role Phone Beatriz Maurice Primary Care Provider Encounter Details Date Type Department Care Team Description 05/13/2021 Telephone [place] Medicine [place] [facility] [place]on Ricks [place] [facility] [place] [address] GENERAL INTERNAL MEDICINE [phone] [place], [place] [address] (Wo rk) Social History Tobacco [...] this encounter Miscellaneous Notes Telephone Encounter - Meron Ricks MD - 05/13/2021 6:17 PM EDT Patient with wbc of 0.27, currently hospitalized. Redirected lab call to inpatient hematology documented in this encounter Plan of Treatment Upcoming Encounters Date Type Specialty Care Team Description 02/18/2022 Infusion Hematology and Oncology 02/21/2022 Infusion Hematology and Oncology 02/24/2022 Appointment Hematology and Oncology 02/24/2022 Office Visit Hematology and Oncology Parviz Modi MD [facility] DR HEMATOLOGY/[place] [address] Miroslava Pelayo APRN [facility] DR HEMATOLOGY/[place] [address] 02/24/2022 Office Visit Wound Care 02/24/2022 Appointment Hematology and Oncology 02/26/2022 Office Visit Neurology Leni Bustamante MD [facility] NEUROLOGY DEPT. [place], [place] [address] (Wo rk) documented as of this encounter Visit Diagnoses Not on filedocumented in this encounter Additional Health Concerns Infection Onset Date Last Indicated Resolved Time Rule Out C. difficile 05/13/2021 05/13/2021 05/14/2021 1:48 PM EDT documented as of this encounter Care Teams Belting And Webbing Inspector Relationship Specialty Start Date End Date Beatriz Maurice PA PCP - General Family Medicine 05/06/21 [address] [place] [address] documented as of this encounter
--- OUTSIDE RECORDS SUMMARY | 2022-02-14 11:19 | XMS_ITS | Encounter Summary ---
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 Educated Herber on HLA typing. Human Leukocyte Antigen (HLA) matching is important for transplant. Discussed that there are many HLA markers. Half are inherited from your mother and half from your father, so each brother and sister who shares the same parents as you has a 25% chance (1 in 4) of being a close HLA match. Extended family members are not likely to be close HLA matches. A close match between a donor???s and a patient???s HLA markers is essential for a successful transplant outcome. A best match is found through detailed testing (HLA typing). Because some HLA types are more common than others, some patients may face a greater challenge in finding a matching donor. Some HLA types are found more often in certain racial and ethnic groups. In addition to searching for a match with family members, we also conduct a search thru NMDP registry. Herber verbalizes understanding and is agreeable to proceeding with HLA typing. He completed paperworkand swabbed per HLA kit's instructions. Swabs placed in envelop and mailed to Thai [place]. Herber has one half sibling, they share a biological father. He has no children. Names and addresses were collected: Annika Geller. RN will initiate contact with family and update patient. Provided BMT Program publication and this RN's business card. RN will continue to follow and coordinate care. documented in this encounter Plan of Treatment Upcoming Encounters Date Type Specialty Care Team Description 02/18/2022 Infusion Hematology and Oncology 02/21/2022 Infusion Hematology and Oncology 02/24/2022 Appointment Hematology and Oncology 02/24/2022 Office Visit Hematology and Oncology Parviz Modi MD [facility] DR HEMATOLOGY/[place] [address] Miroslava Pelayo APRN [facility] HEMATOLOGY/[place] [address] 02/24/2022 Office Visit Wound Care 02/24/2022 Appointment Hematology and Oncology 02/26/2022 Office Visit Neurology Leni Bustamante MD [facility] NEUROLOGY DEPT. [place], [place] [address] (Wo rk) documented as of this encounter Visit Diagnoses Not on filedocumented in this encounter Care Teams Dice Dealer Relationship Specialty Start Date End Date Beatriz Maurice PA PCP - General Family Medicine 05/06/21 [address] [place] [address] documented as of this encounter
--- OUTSIDE RECORDS SUMMARY | 2022-02-14 11:19 | XMS_ITS | Encounter Summary ---
:1960 Author Organization [place] [address] Care Team Providers Name Role Phone Beatriz Maurice Primary Care Provider Encounter Details Date Type Department Care Team Description 05/13/2021 Hospital [place] [address] Social History Tobacco Use Types Packs/Day [...] MD [facility] DR HEMATOLOGY/[place] [address] Miroslava Pelayo APRN [facility] DR HEMATOLOGY/[place] [address] 02/24/2022 Office Visit Wound Care 02/24/2022 Appointment Hematology and Oncology 02/26/2022 Office Visit Neurology Leni Bustamante MD [facility] DR NEUROLOGY DEPT. [place], [place] [address] (Wo rk) documented as of this encounter Procedures Procedure Name Priority Date/Time Associated Diagnosis Comme nts HLA TYPING ARC Routine 05/13/2021 9:14 AM Results for this BLOOD SERVICES EDT procedure are in the results section. documented in this encounter Results HLA Typing ARC Blood Services (05/13/2021 9:14 AM EDT) [facility] Method Time Signature HLA Typing-ARC See Scan [facility] Report [facility] Specimen Anatomical Collection Method Collection Time Receive d Time (Source) Location / / Volume Laterality Blood Venous Draw / 05/13/2021 9:14 AM 05/31/20 9:16 Unknown EDT AM EDT Resulting Agency Comment Spec In Lab Parviz Modi MD BLOOD BANK ORDERABLES Performing Organization Address City/State/ZIP [place] [address] documented in this encounter Visit Diagnoses Not on filedocumented in this encounter Additional Health Concerns Infection Onset Date Last Indicated Resolved Time Rule Out C. difficile 05/13/2021 05/13/2021 05/14/2021 1:48 PM EDT documented as of this encounter Care Teams Breast Trimmer Relationship Specialty Start Date End Date Beatriz Maurice PA PCP - General Family Medicine 05/06/21 [address] [place] [address] documented as of this encounter
--- OUTSIDE RECORDS SUMMARY | 2022-02-14 11:19 | XMS_ITS | Encounter Summary ---
:1960 Author Organization [facility] [place] [address] Care Team Providers Name Role Phone Beatriz Maurice Primary Care Provider Encounter Details Date Type Department Care Team Description 05/10/2021 Telephone Genetics at [facility] [place] [address] Social History Tobacco Use Types Packs/Day [...] this encounter Miscellaneous Notes Telephone Encounter - Mary Powell S - 05/14/2021 9:06 AM EDT Molecular testing on cancer tissue - A covered benefit: I received a fax back from [facility] with a passcode. Per a call to [facility] ( ), [facility] is in-network with the patient's [facility] policy [id number]. CPTs 34695 and 61053 are covered with no authorization needed. Payment is based on medical necessity. Ref: [id number]. I will e-mail Aby to let her know of the approval. Telephone Encounter - PowellMary afllon Torres - 05/10/2021 4:18 PM EDT Molecular testing on cancer tissue - Pending code from [facility] via fax to get into patient's Eligibility: I received an e-mail from Aby in [employer] ([id number]) requestingcoverage review for CPTs 40313 and 51165 which are to be done on bone marrow obtained on 05/06/21. Ordering provider is Parviz Modi MD. Upon review, the patient's [facility] policy [id number] is active. Per a call to [facility] ( ) I submitted a request for a code to obtain eligibility for the molecular testing request to be faxed to . I will follow up with [employer] [phone] to follow up fax from [facility]. I will e-mail Aby to let her know Eligibility verification has been requested. documented in this encounter Plan of Treatment Upcoming Encounters Date Type Specialty Care Team Description 02/18/2022 Infusion Hematology and Oncology 02/21/2022 Infusion Hematology and Oncology 02/24/2022 Appointment Hematology and Oncology 02/24/2022 Office Visit Hematology and Oncology Parviz Modi MD [facility] DR HEMATOLOGY/[place] [address] Miroslava Pelayo APRN [facility] DR HEMATOLOGY/[place] [address] 02/24/2022 Office Visit Wound Care 02/24/2022 Appointment Hematology and Oncology 02/26/2022 Office Visit Neurology Leni Bustamante MD [facility] NEUROLOGY DEPT. [place], [place] [address] (Wo rk) documented as of this encounter Visit Diagnoses Not on filedocumented in this encounter Additional Health Concerns Infection Onset Date Last Indicated Resolved Time Rule Out C. difficile 05/13/2021 05/13/2021 05/14/2021 1:48 PM EDT documented as of this encounter Care Teams Payroll Accountant Relationship Specialty Start Date End Date Beatriz Maurice PA PCP - General Family Medicine 05/06/21 [address] [place] [address] documented as of this encounter
--- OUTSIDE RECORDS SUMMARY | 2022-02-14 11:19 | XMS_ITS | Encounter Summary ---
:1960 Author Organization [facility] Address [facility] [place] [address] Care Team Providers Name Role Phone AjithBeatriz patricia Primary Care Provider Reason for Referral (Routine) - Pending Review Specialty Diagnoses / Procedures Referred By Contact Refer red To Contact Diagnoses Leukocytosis, unspecified type Daisy Gould MD Procedures Chromosome Analysis, Acquired [facility] DR HEMATOLOGY/[place] [address] Referral ID Status Reason Start Date Expiration Date Visits V isits Requested Authorized [id number] Pending 05/06/2021 05/06/2022 1 1 Review Reason for Visit Reason Comments Advice Only Auth/Cert Specialty Diagnoses / Procedures Referred By Contact Refer red To Contact Diagnoses Acute leukemia Procedures EMERGENCY IPI Referral ID Status Reason Start Date Expiration Date Visits Requ ested Visits Authorized [id number] 1 1 Encounter Details Date Type Department Care Team Description 05/06/2021 Office Visit Hematology and Radha Modi MD [facility] DR HEMATOLOGY/[place] [address] Leukocytosis, unspecified type (Primary Dx); [place] at [facility] Miroslava Pelayo APRN [facility] DR HEMATOLOGY/[place] [address] Anemia, unspecified type; [facility] Hayley Palmer APRN [facility] [address] [place]EMATOLOGY[place] [address] [id number] Social History Tobacco Use Types Packs/Day Years [...] Sign Reading Time Taken Comments Blood Pressure 129/78 05/06/2021 8:07 AM EDT Pulse 81 05/06/2021 8:07 AM EDT Temperature 36.1 ??C (97 ??F) 05/06/2021 8:07 AM EDT Respiratory Rate 20 05/06/2021 8:07 AM EDT Oxygen Saturation 96% 05/06/2021 8:07 AM EDT Inhaled Oxygen Concentration - - Weight 112.5 kg (248 lb) 05/06/2021 8:07 AM EDT Height 178 cm (5' 10.08) 05/06/2021 8:07 AM EDT Body Mass Index 35.5 05/06/2021 8:07 AM EDT documented in this encounter Progress Notes Parviz Modi MD - 05/06/2021 8:15 AM EDT HEMATOLOGY/BMT CONSULTATION VISIT NOTE CHIEF COMPLAINT: Herber Iverson Jr. is a 60 y.o. male referred by Dr. Graham Betancourt for evaluation of leukemia. Data Review (From Recent Hospital discharge summary and the EMR) Admitted to [facility] 04/29/21 for leukocytosus. Discharged 04/30/21. 04/30/21 CBC - 40.7/8.09/05 ANC - 3,210 ALC - 12.85 AMC - 13.660 LDH - 655 COVIC-19 - NEG Current medications Flecainide Bisoprolol Tamsulosin Pantoprazole ASA 81 mg recently stopped Medical problems GERD History of colonic polyps Paroxysmal atrial fibrillation HISTORY OF PRESENT ILLNESS Herber Iverson JrNabil dates the onset of his illness to earlier this summer. He has felt more tired than usual but attributed it to the humidity. About 3 weeks ago his fatigue was so bad that he went to a clinic in [facility]. He was evaluated for a UTI [...] a lot of sports into his 40's. 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 Social - has a girlfriend and his boss Al as support. FH F - at ~70 of lung cancer - wsas a heavy smoker M - alive at 78 - no known health issues Siblings - No full siblings. 1/2 sister of AIDS, 1/2 brother is 51 - health unknown REVIEW OF SYSTEMS Constitutional --Energy level: low --Pain: none --Fevers/chills/sweats: No --Unexpected weight loss [...] No Other ROS: All negative PROBLEM LIST There is no problem list on file for this patient. MEDICATIONS Current Outpatient Medications Medication Instructions ??? CIS Free Text Med - ASA ??? flecainide (TAMBOCOR) 50 mg tablet 50mg, PO, Twice daily ??? pantoprazole (PROTONIX) 40 mg tablet 40mg, PO, Once daily ALLERGIES/ADR No Known Allergies PHYSICAL EXAM VITAL SIGNS: Blood pressure 129/78, pulse 81, temperature 36.1 ??C (97 ??F), temperature source Temporal, resp. rate 20, height 178 cm (5' 10.08), weight 112.5 kg (248 lb), SpO2 96 %. GENERAL: Herber Iverson Jr. is a well-appearing 60 y.o. male in no acute distress. His is accompanied by his friend and bossAl. ENT: Sinuses non-tender. Oropharynx with white coating on tongue.. No masses. ENDOCRINE: No thyromegaly palpated. CARDIOVASCULAR: Heart with regular rate and rhythm without S3,S4 or murmurs. No cyanosis or peripheral edema. PULMONARY: Lungs are clear to auscultation without rales, rhonchi or wheezing. GASTROINTESTINAL: Abdomen soft and non-tender without palpable masses. Spleen palpable ~4 cm below the LCM with deep inspiration. MUSCULOSKELETAL: Neck supple with full ROM. No spine or CVA tenderness. SKIN: No rashes or petechiae. Bruises at previous blood draw sites. LYMPH: bilateral cervical adenopathy of 0.5 - 1 cm., 1.5 x 0.5 cm node in left axilla, Few <1 cm inguinal nodes. NEUROLOGICAL: Alert and oriented to person, place and time. LABORATORY Recent Results (from the past 72 hour(s)) Fibrinogen Result Value Ref Range Fibrinogen 314 200 - 393 mg/dL Uric acid Result Value Ref Range Uric Acid 10.3 (H) 3.5 - 8.5 mg/dL Lactate Dehydrogenase Result Value Ref Range LDH 859 (H) 110 - 220 unit/L Ferritin Result Value Ref Range Ferritin 824 (H) 30 - 400 ng/mL Iron and TIBC Result Value Ref Range Iron 144 45 - 160 mcg/dL TIBC 195 (L) 250 - 450 mcg/dL Iron Saturation 74 (H) 20 - 50 % Comprehensive metabolic panel (non-fasting) Result Value Ref Range Glucose Lvl 108 65 - 199 mg/dL BUN 14 10 - 20 mg/dL Creatinine 1.53 (H) 0.80 - 1.50 mg/dL Sodium 136 135 - 145 mmol/L Potassium 3.2 (L) 3.5 - 5.0 mmol/L Chloride 99 98 - 107 mmol/L CO2 29 22 - 31 mmol/L Anion Gap 8 5 - 15 mmol/L Calcium 8.8 8.5 - 10.5 mg/dL Total Protein 8.6 (H) 6.1 - 8.0 gm/dL Albumin 3.5 3.2 - 5.2 gm/dL AST 26 0 - 39 unit/L ALT 13 0 - 55 unit/L Alk Phos 77 40 - 130 unit/L Total Bilirubin 0.5 0.2 - 1.3 mg/dL Estimated GFR 49 (L) >=60 mL/min/1.73 m?? Prothrombin Time Result Value Ref Range PT 15.7 (H) 9.4 - 12.5 sec INR 1.4 APTT Result Value Ref Range PTT 30 25 - 37 sec Hemogram Result Value Ref Range WBC 77.0 (CRIT) 4.0 - 9.5 x10(3)/mcL RBC 2.68 (L) 4.58 - 5.54 x10(6)/mcL Hemoglobin 8.6 (L) 13.7 - 16.5 gm/dL Hematocrit 25.6 (L) 40.5 - 48.5 % MCV 95.5 (H) 82.9 - 93.1 fL MCH 32.1 27.5 - 32.1 pg MCHC 33.6 32.0 - 35.7 gm/dL Platelets 39 (L) 145 - 357 x10(3)/mcL RDWSD 53.8 (H) 36.0 - 45.0 fL RDWCV 15.7 (H) 11.4 - 13.8 % MPV 12.4 7.6 - 12.9 fL nRBC % Auto 0.0 % nRBC Abs Auto 0.030 (H) 0.000 - 0.000 x10(3)/mcL ABO/Rh Typing Result Value Ref Range ABORh Type O Pos Antibody screen Result Value Ref Range Ab Screen Interp Negative Expires at 2359 on: 05/09/2021 ABORH Recheck Status Result Value Ref Range ABORH Recheck Order Order Placed Differential, Manual Result Value Ref Range Neutrophil % 5 % Lymphocyte % 16 % Monocyte % 12 % Basophil % 1 % Metamyelo % 1 % Myelocyte % 1 % Blasts % 64 % Neutrophil Abs 3.8 1.7 - 6.1 x10(3)/mcL Neutr Abs (ANC) 3.85 1.70 - 6.10 x10(3)/mcL Lymphocyte Abs 12.3 (H) 0.9 - 3.2 x10(3)/mcL Monocyte Abs 9.2 (H) 0.3 - 0.9 x10(3)/mcL Basophil Abs 0.8 (H) 0.0 - 0.1 x10(3)/mcL Metamyelo Abs 0.8 (H) 0.0 - 0.0 x10(3)/mcL Myelocyte Abs 0.8 (H) 0.0 - 0.0 x10(3)/mcL Blast Abs 49.3 (H) 0.0 - 0.0 x10(3)/mcL Tot Diff Cell Ct 100 Plat Estimate Decreased RBC Morphology Normal Smudge Cells Present Giant Platelets Less than 1 /HPF Type and Screen Validity Result Value Ref Range T&S only valid at [facility] Hosp RADIOLOGY - None ASSESSMENT & PLANS Summary: Herber is a previously healthy 60 year old man who, as above, now has leukemia. The exact type of leukemia isn't clear as he has elevated myeloid and lymphoid cells and has adenopathy and splenomegaly. Flow cytometry is in process. Plans for admission and work-up discussed with Herber - he is agreeable to this plan. Plans 1. Admit to 1 [place] [facility] for dx and treatment. 2. Flow cytometry in process. 3. Will need BM Bx, rasburicase and hydration for hyperuricemia, cardiac echo. TOTAL TIME OF VISIT: 90 minutes, including record review, the [id number] encounter, ordering and review of lab results, writing this note, arranging admission and communicating results and recommendations to the patient and his provider. Parviz Modi MD Section of Hematology [facility] documented in this encounter Plan of Treatment Upcoming Encounters Date Type Specialty Care Team Description 02/18/2022 Infusion Hematology and Oncology 02/21/2022 Infusion Hematology and Oncology 02/24/2022 Appointment Hematology and Oncology 02/24/2022 Office Visit Hematology and Oncology Parviz Modi MD [facility] DR HEMATOLOGY/[place] [address] Miroslava Pelayo APRN [facility] DR HEMATOLOGY/[place] [address] 02/24/2022 Office Visit Wound Care 02/24/2022 Appointment Hematology and Oncology 02/26/2022 Office Visit Neurology Leni Bustamante MD [facility] NEUROLOGY DEPT. [place], [place] [address] (Wo rk) Scheduled Orders Name Type Priority Associated Diagnoses Order S chedule Chromosome Analysis, Pathology/Cytol Routine Leukocytosis, Ord ered: Acquired ogy unspecified type 05/06/2021 documented as of this encounter Results (ABNORMAL) Iron and TIBC (05/06/2021 9:36 AM EDT) Analysis Performed At Patho logist Time Signature Iron 144 45 - 160 [facility] mcg/dL [facility] TIBC 195 (L) 250 - 450 [facility] mcg/dL [facility] Iron Saturation 74 (H) 20 - 50 % [facility] Specimen Anatomical Collection Method Collection Time Receive d Time (Source) Location / / Volume Laterality Blood 05/06/2021 9:36 AM 9:45 EDT AM EDT Resulting Agency Comment Spec In Lab Parviz Modi MD CHEMISTRY ORDERABLES Performing Organization Address City/State/[place] [address] (ABNORMAL) Ferritin (05/06/2021 9:36 AM EDT) athologist Signature Ferritin 824 (H) 30 - 400 JIA ARASELI ng/mL [facility] Comment: Pediatric reference ranges not verified at [facility], interpret with caution. Reference ranges for females greater miguel a n 50 years of age approach values for men, i.e., 30-400 ng/mL. Specimen Anatomical Collection Method Collection Time Receive d Time (Source) Location / / Volume Laterality Blood 05/06/2021 9:36 AM 9:45 EDT AM EDT Resulting Agency Comment Spec In Lab Parviz Modi MD CHEMISTRY ORDERABLES Performing Organization Address City/[facility]/ZIP Code Phon e Number [address] (ABNORMAL) Lactate Dehydrogenase (05/06/2021 9:36 AM EDT) athologist Signature LDH 859 (H) 110 - 220 [facility] unit/L [facility] Specimen Anatomical Collection Method Collection Time Receive d Time (Source) Location / / Volume Laterality Blood 05/06/2021 9:36 AM 1 9:45 EDT AM EDT Resulting Agency Comment Spec In Lab Parviz Modi MD CHEMISTRY ORDERABLES Performing Organization Address City/[facility]/[place] [address] (ABNORMAL) Uric acid (05/06/2021 9:36 AM EDT) athologist Signature Uric Acid 10.3 (H) 3.5 - 8.5 JIA ARAESLI mg/dL [facility] Specimen Anatomical Collection Method Collection Time Receive d Time (Source) Location / / Volume Laterality Blood 05/06/2021 9:36 AM 9:45 EDT AM EDT Resulting Agency Comment Spec In Lab Parviz Modi MD CHEMISTRY ORDERABLES Performing Organization Address City/State/[place] [address] Immunophenotyping Flow Cytometry (05/06/2021 9:36 AM EDT) Component Value Ref Test Analysis Performed At [facility] gist Range Method Time Signature Immunophenotyping See JIA Flow Comment [facility] Comment: When completed by the Pathologist, the Anum galicia Cytometry Report ([id number]) will display under the Pathology Result s section within eDH. Specimen Anatomical Collection Method Collection Time Receive d Time (Source) Location / / Volume Laterality Other 05/06/2021 9:36 AM 9:45 EDT AM EDT Resulting Agency Comment Spec In Lab Parviz Modi MD HEMATOLOGY ORDERABLES Performing Organization Address City/[facility]/[place] [address] Fibrinogen (05/06/2021 9:36 AM EDT) athologist Signature Fibrinogen 314 200 - 393 [facility] mg/dL [facility] Comment: A fibrinogen level >100 mg/dL is adequat e for hemostasis in most patients without underlying bleeding disorders. Specimen Anatomical Collection Method Collection Time Receive d Time (Source) Location / / Volume Laterality Blood 05/06/2021 9:36 AM 9:45 EDT AM EDT Resulting Agency Comment Spec In Lab Parviz Modi MD HEMATOLOGY ORDERABLES Performing Organization Address City/[facility]/ZIP Code Phon e Number [address] APTT (05/06/2021 9:36 AM EDT) athologist Signature PTT 30 25 - 37 sec [facility] Comment: The PTT is NOT [...] Modi MD HEMATOLOGY ORDERABLES Performing Organization Address City/[facility]/ZIP Code Phon e Number [address] (ABNORMAL) Prothrombin Time (05/06/2021 9:36 AM EDT) athologist Signature PT 15.7 (H) 9.4 - 12.5 [facility] LABORATORY INR 1.4 [facility] Comment: An INR <2.0 indicates [...] Organization Address City/State/[place] [address] (ABNORMAL) Comprehensive metabolic panel (non-fasting) (05/06/2021 9:36 AM EDT) athologist Signature Glucose Lvl 108 65 - 199 [facility] mg/dL [facility] Comment: Diabetes: >=200 mg/dL plus symp toms BUN 14 10 - 20 mg/dL [facility] Creatinine 1.53 (H) 0.80 - 1.50 mg/dL [facility] Sodium 136 135 - 145 mmol/L [facility] Potassium 3.2 (L) 3.5 - 5.0 mmol/L [facility] Comment: Please note: ??Patients with WBC >100,00 0 may have falsely elevated Potassium levels. ??For accurate Potassium quantif ication in these patients send serum separator tube (gold top) for subsequent determinations. ??Contact the Clinical Chemistry Laboratory if there are any qu estions. Chloride 99 98 - 107 mmol/L [facility] CO2 29 22 - 31 mmol/L [facility] Anion Gap 8 5 - 15 mmol/L [facility] Calcium 8.8 8.5 - 10.5 mg/dL [facility] Total Protein 8.6 (H) 6.1 - 8.0 gm/dL [facility] Albumin 3.5 3.2 - 5.2 gm/dL [facility] AST 26 0 - 39 unit/L [facility] ALT 13 0 - 55 unit/L [facility] Alk Phos 77 40 - 130 unit/L [facility] Total Bilirubin 0.5 0.2 - 1.3 mg/dL [facility] Estimated GFR 49 (L) >=60 mL/min/1.73 m?? [facility] [...] Organization Address City/State/[place] [address] documented in this encounter Visit Diagnoses Diagnosis Leukocytosis, unspecified type - Primary Anemia, unspecified type Thrombocytopenia Thrombocytopenia, unspecified documented in this encounter Care Teams Charge Entry Specialist Relationship Specialty Start Date End Date Beatriz Maurice PA PCP - General Family Medicine 05/06/21 [address] [place] [address] documented as of this encounter
--- OUTSIDE RECORDS SUMMARY | 2022-02-14 11:19 | XMS_ITS | Encounter Summary ---
:1960 Author Organization [facility] [place] [address] Care Team Providers Name Role Phone Beatriz Maurice Primary Care Provider Encounter Details Date Type Department Care Team Description 05/14/2021 Hospital [place] [phone] Social History Tobacco Use Types Packs/Day [...] [facility] DR HEMATOLOGY/[place] [address] Miroslava Pelayo APRN [facility] DR HEMATOLOGY/[place] [address] 02/24/2022 Office Visit Wound Care 02/24/2022 Appointment Hematology and Oncology 02/26/2022 Office Visit Neurology Leni Bustamante MD [facility] DR NEUROLOGY DEPT. [place], [place] [address] (Wo rk) documented as of this encounter Visit Diagnoses Not on filedocumented in this encounter Additional Health Concerns Infection Onset Date Last Indicated Resolved Time Rule Out C. difficile 05/13/2021 05/13/2021 05/14/2021 1:48 PM EDT documented as of this encounter Care Teams Drywall Finisher Foreman Relationship Specialty Start Date End Date Beatriz Maurice PA PCP - General Family Medicine 05/06/21 [address] [place] [address] documented as of this encounter
--- OUTSIDE RECORDS SUMMARY | 2022-02-14 11:19 | XMS_ITS | Encounter Summary ---
:1960 [place] [address] Care Team Providers Name Role Phone AjithBeatriz patricia Primary Care Provider Reason for Visit Auth/Cert Specialty Diagnoses / Procedures Referred By Contact Refer red To Contact Diagnoses Acute leukemia Procedures EMERGENCY IPI Referral ID Status Reason Start Date Expiration Date Visits Requ ested Visits Authorized [id number] 1 1 Encounter Details Date Type Department Care Team Description 05/28/2021 Anesthesia Event Main Operating Room Ramiro Teague MD [facility] [address] [facility] Vance Villa MD [facility] [place] [address] [facility] [place] [address] Anesthesia Record Procedure Summary Procedure Name Responsible Anesthesia Start Anesthesia Stop Time Anesthesiologist Time @ILEOSTOMY OR Ramiro Awad MD 05/28/21 1300 05/28/21 1 512 JEJUNOSTOMY, NON TUBE (WRVU 17.59) (N/A Abdomen) Events Date Time Event Comment 05/28/2021 1228 1300 AN Verify 1300 Start 1305 Transport 1310 An Start Data 1326 Anesthesia Ready 1338 Procedure Start 1452 Procedure Stop 1457 an stop data 1457 Transport 1512 Recovery or ICU Handoff Patient care was transferred to the destination unit staff after review of the patient's medica l history, current anesthetic/surgi mamie status and plan, according to the Provider Handoff Checklist. 1512 Stop Name Total Propofol 150 mg fentaNYL 200 mcg NORepinephrine (Levophed) (128 mcg/mL) in sodium chlor davina 0.9% 250 mL 878 mcg infusion (High Concentration) Rocuronium 70 mg PHENYLephrine 240 mcg Glycopyrrolate 0.4 mg Neostigmine 3 mg Sodium Chloride 0.9% 400 mL Agents Name O2 Air N2O Sevoflurane (et) Blood No blood administrations on file. Lines, Drains, and Airways Type Details Placement Removal Ileostomy 05/28/21; 1404; RLQ; 05/28/21 1404 by ileostomy Meera Carey, RN PICC Line - Triple Lumen 05/07/21; 0847; [...] care per policy/procedure, catheter/device intact; 06/19/21; 1142 Incision 05/26/21; midline; 05/26/21 0000 by 10/30/21 002 5 by abdomen; midline; Ayesha Anglin, St yani Pineda, 10/30/21; 0025 (no RN longer present on this assessment) Intentionally Retained 05/26/21; Dr. Hernandes; 05/26/21 0000 by 05/28/21 1340 by Foreign Objects Abdomen; Midline; 3 Ayesha Anglin, Anum Veloz, retained lap sponges; RN 05/28/21; 1340; 4 lap sponges removed per Dr. Walter Arterial Line 05/26/21; 0530; radial 05/26/21 0530 by 06/02/21 1042 by artery, right; 20 Goyette, Felicita S, Monet, Lesly gauge; Anatomical RN A, RN Landmarks; CC Fellow; 1; radial artery, right; 06/02/21; 1042 ETT Mask Ventilation: Easy 05/26/21 1005 by 05/30/21 1030 by (1); ETT Type: Cuffed, O'Everette, Danni M, Egner, Aracely, Oral; ETT Size: 8 mm; CABINET WORKER SUPERVISOR MACHINE SETTER Mcclellan Blade: 2; Notes: Asleep, Pre-O2, Stylette; Attempts: 1; Laryngoscopy Grade: 1; ETT Placement Verified By: Capnometry, Visual; Secured at Teeth: 24 cm; Inserted by: alysia NPWT 05/26/21; 1306; 05/26/21 1306 by 05/28/21 1429 b y midline; abdomen; Ayesha Anglin, RN Auerlio, Lalito E, Abthera; 05/28/21; 1429 RN NG/OG Tube 05/26/21; 1357; 05/26/21 1357 by 05/29/21 1200 b y orogastric; 50; ElbertonMounika, RN Maxh am, Tita L, mouth; stomach; gastric RN decompression; Taped; 05/29/21; 1200 CVC 3 Lumen 05/26/21; 1846; 05/26/21 1846 by 06/02/21 1200 b y internal jugular vein, Claudy Noriega, RN Horacio ub, Lesly right; Janelle, driver merchandiser/apheresis catheter; 06/02/21; 1200 Urethral Catheter 05/26/21; 2048; Q1-2hr 05/26/212048 by 1245 by UOP in ICU patient Don Griffin, RN Qi Mujica, without alternative; RN indwelling catheter with core temperature probe; 14; inserted at this facility; 1; 10; 10; none; drainage bag to dependent drainage; 06/06/21; 1245 documented in this encounter Social History Tobacco [...] encounter OR Notes Anesthesia Postprocedure Evaluation - Ramiro Awad MD - 05/28/2021 4:38 PM EDT Department of Anesthesiology Post-procedure Note Patient: Herber Iverson Jr. Procedure Summary Date: 05/28/21 Room / Location: [facility] OR [address] [place] [address] MAIN OR Anesthesia Start: 1300 Anesthesia Stop: 1512 Procedures: @ILEOSTOMY OR JEJUNOSTOMY, NON TUBE (WRVU 17.59) (N/A Abdomen) @EXPLORATORY LAPAROTOMY, REOPENING OF RECENT (WRVU 17.63) (N/A Abdomen) Diagnosis: (c difficile colitis) Surgeons: Colby Walter MD Responsible Provider: Ramiro Awad MD Anesthesia Type: general ASA Status: 3 - Emergent All Anesthesia Providers: Anesthesiologist: Ramiro Awad MD CABINET WORKER: Hazel Toscano CRNA Vitals Value Taken Time BP Temp 36.5 ??C (97.7 ??F) 05/28/21 1600 Pulse 85 05/28/21 1637 Resp 11 05/28/21 1637 SpO2 94 % 05/28/21 1637 Pain Level 0 05/28/21 1600 Vitals shown include unvalidated device data. Patient Location: ICU Level of Consciousness: Awake and Alert Pain Management: Satisfactory Analgesia PONV: None Cardiovascular Status: At Baseline Respiratory Status: At Baseline and Room Air Postoperative Fluid Status: Intravascular EUvolemia Possible Anesthetic Complications: NONE apparent at time of evaluation Final Primary Anesthesia Type: General (The anesthetic type performed was the same as planned.) Comments: Stable pressor requirement. Ramiro Awad MD Anesthesia Preprocedure Evaluation - Ramiro Awad MD - 05/27/2021 7:22 AM EDT Pre-Anesthesia Evaluation for: Herber Iverson Jr. a 60 y.o. male. Procedure(s): @EXPLORATORY LAPAROTOMY, WITH/WITHOUT BIOPSY(S) [facility] Patient Active Problem List Diagnosis ??? 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 Chart and labs reviewed; patient seen and examined Echo yesterday: 1. Limited, emergent study for RV and LV function. Technically limited even with the use of echo contrast. 2. The left ventricle is normal in chamber size with mild concentric hypertrophy. Global LV systolicfunction is normal with a visually estimated LVEF of 55%. There are segmental wall motion abnormalities involving hypokinesis of the inferoseptum and inferior wall from base to mid segment and the inferolateral base. 3. The right ventricle is poorly visualized but appears mildly dilated. Global RV systolic function is mildly reduced. Although longitudinal systolic function appears preserved (TAPSE 1.7) radial systolic function appears reduced. 4. When compared to the prior study dated 05/07/2021, there has been a decrement biventricular systolic function and there are new focal wall motion abnormalities in the RCA distribution. AM labs: Na/K 129/4.1 BUN/Cr 23/1.97 Glu 75 AB.49/32/76/23.7 on FiO2 .25 Hgb/hct 6.7/18.4 Wbc 0.4 plts 8 Intubated (8.0 ETT at 23 cm); Vent VC 580/18/8/.25 Arterial line/central line in place Vasopressin/NOREpi qtt Assessment/Plan: ASA 3 GA/ETT(in situ); a-line and central line (in situ); post-op ICU Region - Other Informed Consent: Anesthetic plan and risks discussed with healthcare power of commonwealth attorney. Plan discussed with CABINET WORKER. Anesthesia Screening documented in this encounter Plan of Treatment Upcoming Encounters Date Type Specialty Care Team Description 02/18/2022 Infusion Hematology and Oncology 02/21/2022 Infusion Hematology and Oncology 02/24/2022 Appointment Hematology and Oncology 02/24/2022 Office Visit Hematology and Oncology Parviz Modi MD [facility] DR HEMATOLOGY/[place] [address] Miroslava Pelayo APRN [facility] HEMATOLOGY/[place] [address] 02/24/2022 Office Visit Wound Care 02/24/2022 Appointment Hematology and Oncology 02/26/2022 Office Visit Neurology Leni Bustamante MD [facility] NEUROLOGY DEPT. [place], [place] [address] (Wo rk) documented as of this encounter Visit Diagnoses Not on filedocumented in this encounter Administered Medications Inactive Administered Medications - up to 3 most recent administrations Medication Order MAR Action Action Date Dose Rate Site fentaNYL (pf) (50 mcg/mL) Given 05/28/2021 2:42 PM EDT 50 mcg multi-dose injection Intravenous, PRN, Starting on Thu05/28/21 at 1339, Until Thu05/28/21 at 1512, Anesthesia Intra-op, Routine Given 05/28/2021 2:27 PM EDT 50 mcg Given 05/28/2021 2:08 PM EDT 50 mcg glycopyrrolate (Robinul) (0.2 mg/mL) Given 05/28/2021 2:42 PM ED T 0.4 mg multi-dose injection Intravenous, PRN, Starting on Thu05/28/21 at 1442, Until Thu05/28/21 at 1512, Anesthesia Intra-op, Routine neostigmine (Bloxiver) (1 mg/mL) injecti on Given 05/28/2021 2:42 PM EDT 3 mg Intravenous, PRN, Starting on Thu05/28/21 at 1442, Until Thu05/28/21 at 1512, Anesthesia Intra-op, Routine NORepinephrine (Levophed) Rate/Dose Change 05/28/2021 3:39 2 mcg/min 0.9 mL/hr (128 mcg/mL) in sodium PM EDT chloride 0.9% 250 mL infusion (High Concentration) 0-100 mcg/min (0-46.875 mL/hr, rounded to 0-46.9 mL/hr), Intravenous, CONTINUOUS, Starting on Thu05/26/21 at 1515, Until Thu05/29/21 at 1240, Titrate to keep MAP greater than 65 mmHg. Start at 2 mcg/min and increase by 2 mcg/min every 3 minutes until goal reached. Do not exceed 200 mcg/min. Warning Vesicant/Irritant Medication *High Concentration: 128 mcg/mL* For Central Line Use Only, STAT Rate/Dose Change 05/28/2021 2:44 PM EDT 6 mcg/min 2.813 mL/hr Rate/Dose Change 05/28/2021 1:39 PM EDT 8 mcg/min 3.75 mL/hr PHENYLephrine in NS (PF) (ALEX-SYNEPHRINE) 0.8 Given 2:14 PM EDT 80 mcg mg/10 mL (80 mcg/mL) multi-dose injection Syrg Intravenous, PRN, Starting on Thu05/28/21 at 1320, Until Thu05/28/21 at 1512, Anesthesia Intra-op, Routine Given 05/28/2021 2:01 PM EDT 80 mcg Given 05/28/2021 1:20 PM EDT 80 mcg propofoL (Diprivan) 10 mg/mL bolus injection Given 1:41 PM EDT 50 mg (Anesthesia) Intravenous, PRN, Starting on Thu05/28/21 at 1255, Until Thu05/28/21 at 1512, Anesthesia Intra-op Given 05/28/2021 12:55 PM EDT 100 mg rocuronium (Zemuron) (10 mg/mL) multi-dose Given 05/28/2021 1:50 PM EDT 20 mg injection Intravenous, PRN, Starting on Thu05/28/21 at 1330, Until Thu05/28/21 at 1512, Anesthesia Intra-op, Routine Given 05/28/2021 1:30 PM EDT 50 mg sodium chloride 0.9% infusion New Bag 05/28/2021 1:00 PM EDT Intravenous, CONTINUOUS PRN, Starting on Thu05/28/21 at 1300, Until Thu05/28/21 at 1512, Anesthesia Intra-op documented in this encounter Additional Health Concerns Infection Onset Date Last Indicated Resolved Time C. difficile 05/25/2021 05/25/2021 08/20/2021 5:29 AM EST documented as of this encounter Care Teams Grievance And Appeals Coordinator Relationship Specialty Start Date End Date Beatriz Maurice PA PCP - General Family Medicine 05/06/21 [address] [place] [address] documented as of this encounter
--- OUTSIDE RECORDS SUMMARY | 2022-02-14 11:19 | XMS_ITS | Encounter Summary ---
:1960 [place] [address] Care Team Providers Name Role Phone Beatriz Maurice Primary Care Provider Reason for Visit Auth/Cert Specialty Diagnoses / Procedures Referred By Contact Refer red To Contact Diagnoses Acute leukemia Procedures EMERGENCY IPI Referral ID Status Reason Start Date Expiration Date Visits Requ ested Visits Authorized [id number] 1 1 Encounter Details Date Type Department Care Team Description 05/26/2021 Hospital Encounter Non-Invasive [place] [address] Social History Tobacco Use Types Packs/Day [...] Modi MD [facility] DR HEMATOLOGY/[place] [address] Miroslava Pelayo APRN [facility] DR HEMATOLOGY/[place] [address] 02/24/2022 Office Visit Wound Care 02/24/2022 Appointment Hematology and Oncology 02/26/2022 Office Visit Neurology Leni Bustamante MD [facility] DR NEUROLOGY DEPT. [place], [place] [address] (Wo rk) documented as of this encounter Procedures Procedure Name Priority Date/Time Associated Comments Diagnosis ECHOCARDIOGRAM LMTD W STAT 05/26/2021 9:07 RVF (right Res ults for this CONTRAST W LMTD SPEC AM EDT ventricular procedu re are in DOPP COLOR DOPP failure) the results section. documented in this encounter Visit Diagnoses Not on filedocumented in this encounter Administered Medications Inactive Administered Medications - up to 3 most recent administrations Medication Order MAR Action Action Date Dose Rate Site perflutren protein-A microsphers Given 05/26/2021 8:30 AM EDT 1. 5 mLs (Optison) (0.22 mg/mL) injection 0.5 mL 0.5 mL, Intravenous, ONCE PRN, 1 dose, Starting on 05/26/21 at 0907, Until 05/26/21 at 0830, for enhancement of sub-optimal echo images, Echo Lab (Intra-Procedure), Routine documented in this encounter Additional Health Concerns Infection Onset Date Last Indicated Resolved Time Rule Out C. difficile 05/25/2021 05/25/2021 05/26/2021 4:05 PM EDT C. difficile 05/25/2021 05/25/2021 08/20/2021 5:29 AM EST documented as of this encounter Care Teams Fire Extinguisher Technician Relationship Specialty Start Date End Date Beatriz Maurice PA PCP - General Family Medicine 05/06/21 [address] [place] [address] documented as of this encounter
[2022-02-28 07:54] LABS: Abs Immature Grans 0.05 10^3/uL (0.0-0.06); Absolute Basophil Count 0.01 10^3/uL (0.0-0.2); Absolute Eosinophil Count 0.02 10^3/uL (0.0-0.7); Absolute Lymphocyte Count 0.65 10^3/uL (1.2-3.4); Absolute Monocyte Count 0.34 10^3/uL (0.1-0.8); Absolute Neutrophil Count 3.33 10^3/uL (1.2-6.7); Basophils % 0.2; Eosinophils % 0.5; HCT 26.1 % (40.0-50.0); HGB 8.9 g/dL (13.5-17.5); Immature Grans % 1.1; Lymphocytes % 14.8; MCH 34.9 pg (27.0-33.0); MCHC 34.1 % (32.0-36.0); MCV 102 fL (80-95); MPV 10.7 fL (8.0-11.0); Monocytes % 7.7; Neutrophils % 75.7; Nucleated RBC 0.9 % (0.0-0.3); RBC 2.55 10^6/uL (4.36-5.78); RDW 18.8 % (11.8-14.1); RDW-SD 69.9 fL
[2022-02-28 08:09] LABS: Platelet Count 59 10^3/uL (130-400)
[2022-02-28 08:23] LABS: ALT 33 U/L (16-63); AST 19 U/L (15-37); Albumin 3.3 g/dL (3.4-5.0); Alkaline Phosphatase 66 U/L (46-116); Anion Gap 11.2 mmol/L (3-11); BUN 37 mg/dL (7-18); Bilirubin, Total 0.6 mg/dL (0.2-1.0); CO2 24.8 mmol/L (21.0-32.0); Chloride 104 mmol/L (98-107); Estimated GFR 34.14 (mL/min/1.73m2); Glucose 93 mg/dL (74-106); Magnesium 1.3 mg/dL (1.8-2.4); Potassium 4.9 mmol/L (3.5-5.1); Sodium 140 mmol/L (136-145)
[2022-02-28] MEDS: Normal Saline Flush 10 ML SYR IVP (08:38)
== END 2022-03-16 23:59 | disposition home or self-care (01) ==
LOC: INF 07:35
PROVIDERS: PCP Physician Assistant Medical; Visit Provider Nurse Practitioner
DX: Z45.2 Encounter for adjustment and management of vascular access device (principal); Z94.81 Bone marrow transplant status
CPT/HCPCS: 36591; 80053; 83735; 85025

== ENCOUNTER 2022-06-12 03:47 | Outpatient (CLI) | payer MEDICAID, SELFPAY ==
[2022-06-12 12:24] LABS: Abs Immature Grans 0.18 10^3/uL (0.0-0.06); Absolute Basophil Count 0.02 10^3/uL (0.0-0.2); Absolute Eosinophil Count 0.01 10^3/uL (0.0-0.7); Absolute Lymphocyte Count 0.47 10^3/uL (1.2-3.4); Absolute Monocyte Count 0.34 10^3/uL (0.1-0.8); Absolute Neutrophil Count 4.87 10^3/uL (1.2-6.7); Basophils % 0.3; Eosinophils % 0.2; HCT 30.3 % (40.0-50.0); HGB 10.1 g/dL (13.5-17.5); Immature Grans % 3.1; MCH 36.5 pg (27.0-33.0); MCHC 33.3 % (32.0-36.0); MCV 109 fL (80-95); Monocytes % 5.8; Neutrophils % 82.6; Nucleated RBC 4.1 % (0.0-0.3); RBC 2.77 10^6/uL (4.36-5.78); RDW 19.8 % (11.8-14.1); RDW-SD 80.2 fL; WBC 5.89 10^3/uL (4.4-10.8)
[2022-06-12 12:54] LABS: Diff Comment RBC Morph Reviewed
[2022-06-12 12:55] LABS: Anisocytosis 2+; Macrocytosis 2+; Polychromasia Present
[2022-06-12 12:56] LABS: Platelet Count 30 10^3/uL (130-400)
[2022-06-12 13:03] LABS: ALT 104 U/L (16-63); AST 38 U/L (15-37); Albumin 2.9 g/dL (3.4-5.0); Alkaline Phosphatase 136 U/L (46-116); Anion Gap 10.6 mmol/L (3-11); BUN 30 mg/dL (7-18); Bilirubin, Total 0.4 mg/dL (0.2-1.0); CO2 21.4 mmol/L (21.0-32.0); CREATININE 1.3 mg/dL (0.70-1.30); Calcium 8.9 mg/dL (8.5-10.1); Chloride 103 mmol/L (98-107); Glucose 124 mg/dL (74-106); Magnesium 1.5 mg/dL (1.8-2.4); Potassium 4.3 mmol/L (3.5-5.1); Sodium 135 mmol/L (136-145); Total Protein 5.7 g/dL (6.4-8.2)
== END 2022-06-12 03:48 | disposition home or self-care (01) ==
PROVIDERS: PCP Physician Assistant Medical; Visit Provider Internal Medicine
DX: Z94.81 Bone marrow transplant status (principal)
CPT/HCPCS: 36415; 80053; 83735; 85025

== ENCOUNTER 2022-07-09 10:30 | Outpatient (RCR) | payer MEDICAID, SELFPAY ==
[2022-06-24 09:04] LABS: Abs Immature Grans 0.15 10^3/uL (0.0-0.06); Absolute Basophil Count 0.02 10^3/uL (0.0-0.2); Absolute Eosinophil Count 0.02 10^3/uL (0.0-0.7); Absolute Lymphocyte Count 0.26 10^3/uL (1.2-3.4); Absolute Monocyte Count 0.31 10^3/uL (0.1-0.8); Absolute Neutrophil Count 3.81 10^3/uL (1.2-6.7); Basophils % 0.4; Eosinophils % 0.4; HGB 8.3 g/dL (13.5-17.5); Immature Grans % 3.3; Lymphocytes % 5.7; MCH 36.9 pg (27.0-33.0); MCHC 33.2 % (32.0-36.0); MCV 111 fL (80-95); MPV 12.2 fL (8.0-11.0); Monocytes % 6.8; Neutrophils % 83.4; Nucleated RBC 4.6 % (0.0-0.3); RBC 2.25 10^6/uL (4.36-5.78); RDW 19.9 % (11.8-14.1); RDW-SD 80.1 fL; WBC 4.57 10^3/uL (4.4-10.8)
[2022-06-24 09:19] LABS: ALT 159 U/L (16-63); AST 57 U/L (15-37); Alkaline Phosphatase 158 U/L (46-116); BUN 28 mg/dL (7-18); Bilirubin, Total 0.7 mg/dL (0.2-1.0); CREATININE 1.2 mg/dL (0.70-1.30); Calcium 9.3 mg/dL (8.5-10.1); Chloride 105 mmol/L (98-107); Glucose 120 mg/dL (74-106); Magnesium 1.4 mg/dL (1.8-2.4); Potassium 4.9 mmol/L (3.5-5.1); Sodium 138 mmol/L (136-145); Total Protein 5.8 g/dL (6.4-8.2)
[2022-06-24] MEDS: Normal Saline Flush 10 ML SYR IVP (09:20)
[2022-06-24] MEDS: Heparin 500 UNITS/5 ML SYRINGE IVP (09:24)
[2022-06-24 09:25] LABS: Anisocytosis 3+; Diff Comment RBC Morph Reviewed; Macrocytosis 2+
[2022-06-24 09:26] LABS: Poikilocytes 1+; Polychromasia Present
[2022-06-24 09:41] LABS: Platelet Count 25 10^3/uL (130-400)
[2022-07-09 10:31] LABS: Abs Immature Grans 0.19 10^3/uL (0.0-0.06); Absolute Basophil Count 0.02 10^3/uL (0.0-0.2); Absolute Eosinophil Count 0.01 10^3/uL (0.0-0.7); Absolute Lymphocyte Count 0.68 10^3/uL (1.2-3.4); Absolute Monocyte Count 0.55 10^3/uL (0.1-0.8); Absolute Neutrophil Count 4.59 10^3/uL (1.2-6.7); Basophils % 0.3; Eosinophils % 0.2; HCT 21.9 % (40.0-50.0); HGB 7.3 g/dL (13.5-17.5); Immature Grans % 3.1; Lymphocytes % 11.3; MCHC 33.3 % (32.0-36.0); MCV 114 fL (80-95); MPV 12.1 fL (8.0-11.0); Monocytes % 9.1; RBC 1.92 10^6/uL (4.36-5.78); RDW 21.4 % (11.8-14.1); RDW-SD 86.5 fL; WBC 6.04 10^3/uL (4.4-10.8)
[2022-07-09] MEDS: Normal Saline Flush 10 ML SYR IVP (10:32)
[2022-07-09 10:45] LABS: ALT 92 U/L (16-63); AST 35 U/L (15-37); Albumin 3.4 g/dL (3.4-5.0); Alkaline Phosphatase 154 U/L (46-116); Anion Gap 16.4 mmol/L (3-11); BUN 24 mg/dL (7-18); Bilirubin, Total 0.7 mg/dL (0.2-1.0); CO2 18.6 mmol/L (21.0-32.0); CREATININE 1.6 mg/dL (0.70-1.30); Calcium 9.3 mg/dL (8.5-10.1); Chloride 103 mmol/L (98-107); Estimated GFR 48.72 (mL/min/1.73m2); Glucose 137 mg/dL (74-106); Sodium 138 mmol/L (136-145); Total Protein 6.2 g/dL (6.4-8.2)
[2022-07-09 11:12] LABS: Anisocytosis 2+; Diff Comment RBC Morph Reviewed; Macrocytosis 2+; Platelet Count 46 10^3/uL (130-400)
== END 2022-07-16 23:59 | disposition home or self-care (01) ==
LOC: INF 10:30
PROVIDERS: Nurse Practitioner; PCP Physician Assistant Medical; Visit Provider Internal Medicine
DX: C95.01 Acute leukemia of unspecified cell type, in remission (principal); Z94.81 Bone marrow transplant status; Z45.2 Encounter for adjustment and management of vascular access device
CPT/HCPCS: 36591; 80053; 83735; 85025